=== PATIENT | male | born 1960 | race Caucasian/White ===

== ENCOUNTER 2016-09-22 09:05 | Outpatient (RCR) | payer MEDICARE, OTHER ==
--- OUTSIDE RECORDS SUMMARY | 2016-01-31 12:36 | XMS REPORT | Continuity of Care Document ---
Author Author [facility] Organization [facility] Address Unknown Phone Unavailable Care Team Providers Care Manager Channel Name Role Phone Aquilino Owen PCP [phone] Source Comments Some departments are not documenting in the electronic medical record. If you do not see the information that you expected, contact Release of Information in the Health Information Management department at [phone] for further assistance in locating additional records.[facility] Active Allergies and Adverse Reactions Not on File Current Medications Not on file Active Problems Not on file Social History Tobacco Use Types Packs/Day Years Used Date Never Assessed Plan of Care Health Maintenance Due Date Last Done Comments Hepatitis C Screening 1958 Physical (Comprehensive) 1965 Exam Pertussis Vaccine 1969 Tetanus Vaccine 10/15/1975 Colorectal Cancer 2008 Screening Influenza Vaccine 01/30/2016 Results from Last 3 Months Not on file
--- OUTSIDE RECORDS SUMMARY | 2016-06-29 09:59 | XMS REPORT | Continuity of Care Document ---
Author Author [facility] Organization [facility] Address Unknown Phone Unavailable Care Team Providers Care Aviation Survival Technician Name Role Phone Aquilino Owen PCP [phone] Source Comments Some departments are not documenting in the electronic medical record. If you do not see the information that you expected, contact Release of Information in the Health Information Management department at [phone] for further assistance in locating additional records.[facility] Active Allergies and Adverse Reactions Not on [...]
[2016-06-29 10:03] VITALS: BP 163/79
[2016-06-29] MEDS: CATHETER FLUSH 10 ML SYR IV PRN (10:03)
[2016-07-28 09:20] VITALS: BP 137/82
[2016-07-28] MEDS: CATHETER FLUSH 10 ML SYR IV PRN (09:25)
[2016-08-25 12:45] VITALS: BP 161/72
[2016-08-25] MEDS: CATHETER FLUSH 10 ML SYR IV PRN (12:55)
[~2016-09-22] VITALS: Ht 185.4 cm; Wt 119.7 kg
[~2016-09-22 09:05] MED LIST: ALLP300T PO; ALPR.5T PO; ALPR0.5T72 PO; AMLO5TAB2 PO; ATOR40TA70 PO; ATR20T PO; AZIT500T2 PO; CARI350T PO; CEFP250T2 PO; CEPH500C PO; CETI10TA17; CITA-105 PO; CITA40TA19 PO; CYCL10TA9 PO; DOXY100C2 PO; DULO60CA6 PO; ETD400T PO; ETOD400T PO; EZET1TAB44; FENT100T; FLC100T1 PO; FLC150T PO; FLUO60CR TOP; FNT100TD; FNT100TD TD; FURO40TA4 PO; GEMF600T3 PO; GLUCOVANCE; GLYB5TAB3 PO; HUMALOG; HYDR-2890 PO; HYDR-3583 PO; INSU100C4 SQ; INSU100I23 SQ; INSU100V16 SC; INSU100V6 SQ; LANTUS; LEVO500T69 PO; LISI10TA PO; LNZ600T PO; METF-380 PO; METR500T PO; MIRT30TA6 PO; MORP30CA16 PO; MORP30TA16 PO; MS CONTIN; MS15TCR PO; MTF500T PO; MTP25TSR PO; OXYC-12 PO; PGLT30T PO; POTA10TA86 PO; PRAM0.252 PO; PRAM0.257 PO; PREG150C; PREG150C PO; PREG225C PO; TRAM-21; ZLP10T PO; ZOLP12.5
[2016-09-22 09:27] VITALS: BP 135/70
[2016-09-29] MEDS ORDERED: ASPI-999 PO (14:46)
[2016-09-29] MEDS ORDERED: AMLO10TA2 PO (14:46)
[2016-09-29] MEDS ORDERED: MORP30TA60 PO (14:46)
[2016-09-29] MEDS ORDERED: ATOR40TA70 PO (14:46)
[2016-09-29] MEDS ORDERED: INSU300I SQ (14:46)
[2016-09-29] MEDS ORDERED: INSU100I23 SQ (14:46)
[2016-09-29] MEDS ORDERED: ALPR1TAB7 PO (14:46)
[2016-09-29] MEDS ORDERED: SULF1TAB35 PO (14:46)
== END 2016-09-27 | disposition home or self-care (01) ==
LOC: SDC 09:05
PROVIDERS: ATTEND Internal Medicine
DX: L08.9 Local infection of the skin and subcutaneous tissue, unspecified (principal); Z45.2 Encounter for adjustment and management of vascular access device
CPT/HCPCS: 96523

== ENCOUNTER → 2016-09-29 | Day surgery (SDC) | payer MEDICARE ==
[~2016-09-29] VITALS: Ht 185.4 cm; Wt 119.3 kg
[2016-09-29] VITALS (7 sets, daily range): BP systolic 107–147; BP diastolic 64–84
[~2016-09-29] MED LIST changes: +ALPR1TAB7 PO; +AMLO10TA2 PO; +ASPI-999 PO; +CATHETER FLUSH 10 ML SYR IV PRN; +HEParin (CATH LAB) 2,000 ML IV ONE; +INSU300I SQ; +LIDOCAINE 1% INJ 20 ML (XYLOCAINE) VIAL ONE; +MIDAZOLAM 5 MG/5 ML (VERSED) VIAL ONE; +MORP30TA60 PO; +NS IV 1000 ML 1,000 ML IV SCH; +NS IV 1000 ML 1,000 ML ONE; +PATIENT MAY USE OWN MEDS, ALL PO SCH; +SULF1TAB35 PO; +diphenhydrAMINE 50 MG/ML INJ (BENADRYL) ONE; +fentaNYL INJECTION 100 MCG/2 ML AMP ONE
[2016-09-29 11:33] LABS: MEAN PLATELET VOLUME 9.4 FL (7.4-10.4); RED BLOOD COUNT 4.04 10^6/uL (4.35-5.85); RED CELL DISTRIBUTION WIDTH 12.8 % (10.0-14.5); WHITE BLOOD COUNT 3.5 10^3/uL (4.3-11.0)
[2016-09-29 11:41] LABS: PROTHROMBIN TIME PATIENT 12.6 SEC (12.2-14.7)
[2016-09-29 11:46] LABS: BILIRUBIN,URINE NEGATIVE (NEGATIVE); KETONES,URINE NEGATIVE (NEGATIVE); LEUKOCYTE ESTERASE ,URINE NEGATIVE (NEGATIVE); NITRITE,URINE NEGATIVE (NEGATIVE); PH,URINE 5 (5-9); PROTEIN,URINE 3+ (NEGATIVE); UROBILINOGEN,URINE NORMAL (NORMAL)
[2016-09-29 11:49] LABS: ALANINE AMINOTRANSFERASE 19 U/L (0-55); ALBUMIN 4.4 G/DL (3.2-4.5); ANION GAP 8 MMOL/L (5-14); ASPARTATE AMINO TRANSFERASE 24 U/L (5-34); BILIRUBIN,TOTAL 0.4 MG/DL (0.1-1.0); BLOOD UREA NITROGEN 15 MG/DL (7-18); BUN/CREATININE RATIO 18; CALCIUM 9.5 MG/DL (8.5-10.1); CARBON DIOXIDE 30 MMOL/L (21-32); CHLORIDE 98 MMOL/L (98-107); CHOLESTEROL 125 MG/DL (< 200); CREATININE SERUM 0.84 MG/DL (0.60-1.30); DIRECT LDL 56 MG/DL (1-129); GFR ESTIMATED > 60; GLUCOSE 192 MG/DL (70-105); POTASSIUM 4.7 MMOL/L (3.6-5.0); SODIUM 136 MMOL/L (135-145); TOTAL PROTEIN 8.1 G/DL (6.4-8.2); TRIGLYCERIDES 215 MG/DL (<150); VLDL CHOLESTEROL 43 MG/DL (5-40)
--- NOTE | 2016-09-29 12:17 | Diagnostic Imaging Report ---
PA view of the chest. INDICATION: Preoperative evaluation prior to cardiac catheter. Shortness of breath. FINDINGS: There is an infusion port with the tip at the SVC level. The lungs are clear. The heart size is normal. No effusion or pneumothorax. The mediastinum and molina appear unremarkable. IMPRESSION: No acute process. Dictated by: Dictated on workstation # [id number]
[2016-09-29 12:20] LABS: HYALINE CASTS, URINE 0-2 /LPF; RENAL EPITHELIAL CELLS,URINE 0-2 /HPF
--- NOTE | 2016-09-29 16:21 | Cardiac Procedure Note-CS/ASA ---
Pre-Procedure Note Pre-Op Procedure Note H&P Reviewed The H&P was reviewed, patient examined and no changes noted. Date H&P Reviewed: September 29, 2016 Time H&P Reviewed: 16:20 Conscious Sedation Pre-Proced Time Reviewed: 16:20 ASA Class: 2 Airway Mallampati Classification: ([place] appropriate class) I. II. III, IV Lungs Heart ASA score ASA 1: a normal healthy patient ASA 2: a patient with a mild systemic disease (mid diabetes, controlled hypertension, obesity ASA 3: a patient with a severe systemic disease that limits activity (angina , COPD, prior Myocardial infarction) ASA 4: a patient with an incapacitating disease that is a constant threat to life (CHF, renal failure) ASA 5: a moribund patient not expected to survive 24 hrs. (ruptured aneurysm) ASA 6: a declared brain patient whose organs are being harvested. For emergent operations, add the letter E after the classification Grade 2 Sedation Plan: Analgesia, Amnesia, Plan communicated to team members, Discussed options with patient/fam, Discussed risks with patient/fam Note The patient is an appropriate candidate to undergo the planned procedure, sedation, and anesthesia. The patient immediately re-assessed prior to indication. NEIL GRIMALDO MD FACP FAC CCDS September 29, 2016 4:21 pm
--- NOTE | 2016-09-29 16:59 | Discharge Inst-Post CATH ---
Discharge Inst-CATH Post Cardiac Cath D/C Inst Follow Up/Plan F/u with Dr Callejas in 2 weeks CARDIAC CATH DISCHARGE INSTRUCTIONS *Hold Metformin for 48 hours post heart cath. ACTIVITY * Go Home directly and rest. * Limit activity of the leg (or wrist if it was used) for 7 days including aerobics, swimming, jogging, bicycling, etc. * Restrict stair-climbing for 7 days if possible, if not, climb up with your non -cath leg, then bring together on the same step. * Avoid lifting, pushing, pulling or excessive movement of the affected extremity for 7 days. * Customary sexual activity may be resumed after 2 days-use caution not to use a position that strains or causes pain to the affected extremity. * No driving for 24 hours. * NO SMOKING. * Avoid straining for bowel movements for 7 days. * Gentle walking on level ground is allowed. * Returning to work will depend on the type of procedure and the results. Your doctor will discuss this with you. CALL YOUR DOCTOR FOR ANY OF THE FOLLOWING: *If bleeding from the puncture site occurs- Apply gentle pressure to site with clean cloth and call your doctor or EMS. * If a knot or lump forms under the skin, increases in size, or causes pain. * If bruising appears to be worsening or moving further down your leg instead of disappearing. * Temperature above 101 F. CARE OF YOUR GROIN INCISION; * Bruising or purple discoloration of the skin near the puncture site is common. * You may shower only, no bathtub bathing for 5 days. Be careful to avoid slipping as your leg may feel stiff. * If a closure device was used on your femoral artery, please see the attached guide regarding care of the device and your leg. * REMOVE the dressing from your groin the next day after your procedure in the shower. CARE OF YOUR WRIST INCISION; * Bruising or purple discoloration of the skin near the puncture site is common. * You may shower. * DO NOT submerge wrist. * Remove dressing in 24 hours. NEIL CALLEJAS MD FACP [facility] CCDS September 29, 2016 16:59
--- NOTE | 2016-09-29 17:00 | Discharge Inst-Cardiology ---
Discharge Inst-Cardiac Discharge Medications Continued Medications: Alprazolam (Alprazolam) 1 Mg Tablet 1 MG PO TID, TAB Amlodipine Besylate (Amlodipine Besylate) 10 Mg Tablet 10 MG PO DAILY, TAB Aspirin (Aspirin) 81 Mg Tab.chew 81 MG PO DAILY, TAB Atorvastatin Calcium (Atorvastatin Calcium) 40 Mg Tablet 40 MG PO HS, TAB Carisoprodol (Soma) 350 Mg Tablet 350 MG PO HS, TAB Citalopram Hydrobromide (Celexa) 40 Mg Tablet 40 MG PO DAILY, TAB Duloxetine Hcl (Cymbalta) 60 Mg Capsule.dr 60 MG PO HS, CAP Gemfibrozil (Gemfibrozil) 600 Mg Tablet 600 MG PO BID, TAB Hydrocodone Bit/Acetaminophen (Hydrocodon-Acetaminophn 10-325) 1 Each Tablet 1 TAB PO Q6H PRN for PAIN-MODERATE, TAB Insulin Glargine,Hum.rec.anlog (Toujeo Solostar) 300 Unit/1 Ml Insuln.pen 150 UNIT SQ HS, EA Insulin Lispro (Humalog Kwikpen) 100 Unit/1 Ml Insuln.pen 30 ML SQ TIDAC, EA Metformin Hcl (Metformin 1000 Mg) 1,000 Mg Tablet 1000 MG PO BID WITH MEALS, TAB Mirtazapine (Mirtazapine 30 Mg) 30 Mg Tablet 30 MG PO HS, TAB Morphine Sulfate (Ms Contin) 30 Mg Tablet.er 30 MG PO Q8H, TAB Pregabalin (Lyrica) 225 Mg Capsule 225 MG PO BID, CAP Sulfamethoxazole/Trimethoprim (Bactrim Ds Tablet) 1 Each Tablet 1 TAB PO BID, TAB NEIL GRIMALDO MD FACP FAC CCDS September 29, 2016 17:00
--- NOTE | 2016-09-29 23:38 | CARDIAC CATHETERIZATION ---
DATE OF SERVICE: 09/29/2016 HISTORY OF PRESENT ILLNESS: The patient is a 55-year-old man who has multiple coronary artery disease risk factors and who has been experiencing new symptoms that are consistent with new onset of angina pectoralis. Cardiac catheterization was carried out the day after having obtained an informed consent. PROCEDURE: He was brought to the cardiac catheterization laboratory in a fasting state. The right groin was prepared and draped in the usual sterile fashion and using 1% lidocaine with local anesthesia, modified Seldinger technique was used to advance a 5-Egyptian sheath in the right femoral artery. A 5-Egyptian JL4 catheter into the left coronary angiography. A 5-Egyptian JR4 catheter into the right coronary angiography. A 5-Egyptian pigtail catheter was used for left heart catheterization, left ventricular angiography. The pigtail was pulled back to the aortic arch and aortic arch angiography was performed. The catheter was then removed. Angiography to the right femoral artery was carried out through the sheath. Mynx was used to achieve hemostasis. He tolerated the procedure well. HEMODYNAMICS: Left ventricular end-diastolic pressure following coronary angiography was 13 mmHg. There was no significant pressure gradient on pullback across the aortic valve. Ascending aortic pressure was 112/70 with a mean of 89 mmHg. CORONARY ANGIOGRAPHY: Left main coronary artery is free of significant disease. Left anterior descending artery has diffuse mild to moderate disease, especially in its distal portion. Left circumflex artery has mild plaques. Right coronary artery is large and dominant and has multiple stenoses of up to 50% that include the proximal, mid and distal portions. AORTIC ARCH ANGIOGRAPHY: Aortic arch angiography did not indicate any significant thoracic aortic aneurysm or dissection, to the extent visualized. The neck arteries, to the extent visualized, do not seem to have significant disease. LEFT VENTRICULAR ANGIOGRAPHY: Left ventricular angiography was carried out in right anterior oblique projection only. Global left ventricular systolic function is normal. Left ventricular ejection fraction is approximately 60%. CONCLUSION: 1. Coronary artery disease, relatively moderate. 2. Multiple 50% stenoses are seen in the right coronary artery and in the distal portion of the left anterior descending artery. 3. Normal global left ventricular systolic function with ejection fraction of 60%. 3. Left ventricular end-diastolic pressure at the top limit of normal to mildly elevated. 4. No significant mitral regurgitation. 5. No evidence of thoracic aortic aneurysm or dissection. DISCUSSION AND RECOMMENDATIONS: Based on results of the study, it appears appropriate to continue a conservative approach. Focus of cardiovascular management is on risk factor modification. Close therapy and follow up is advanced for now until risk factor modification has been completed. Job ID: [id number] DocumentID: [id number] Dictated Date: 09/29/2016 16:49:34 Assistant Cross Country Coach Date: 09/29/2016 19:33:48 Dictated By: NEIL GRIMALDO MD, MA, FACP, FACC,
== END ==
LOC: CATH 11:04
PROVIDERS: ATTEND Internal Medicine Cardiovascular Disease
DX: I25.10 Atherosclerotic heart disease of native coronary artery without angina pectoris (principal); R07.89 Other chest pain; R06.09 Other forms of dyspnea; E78.5 Hyperlipidemia, unspecified; E11.9 Type 2 diabetes mellitus without complications; I10 Essential (primary) hypertension; Z87.891 Personal history of nicotine dependence; Z82.49 Family history of ischemic heart disease and other diseases of the circulatory system; Z79.4 Long term (current) use of insulin; Z79.899 Other long term (current) drug therapy
CPT/HCPCS: 36221; 36415; 71010; 80053; 80061; 81000; 85027; 85610; 85730; 87088; 93458

== ENCOUNTER → 2016-12-04 | Outpatient (CLI) | payer MEDICARE ==
[~2016-12-04] MED LIST changes: -HEParin (CATH LAB) 2,000 ML IV ONE; +IOHEXOL 350 MG/ML 100 ML (OMNIPAQUE 350) VIAL IV ONE; -LIDOCAINE 1% INJ 20 ML (XYLOCAINE) VIAL ONE; -MIDAZOLAM 5 MG/5 ML (VERSED) VIAL ONE; +NS 100 ML (IVPB) BAG IV ONE; -NS IV 1000 ML 1,000 ML IV SCH; -NS IV 1000 ML 1,000 ML ONE; -PATIENT MAY USE OWN MEDS, ALL PO SCH; -diphenhydrAMINE 50 MG/ML INJ (BENADRYL) ONE; -fentaNYL INJECTION 100 MCG/2 ML AMP ONE
[2016-12-04 08:43] LABS: ANION GAP 10 MMOL/L (5-14); BLOOD UREA NITROGEN 14 MG/DL (7-18); BUN/CREATININE RATIO 18; CALCIUM 9.7 MG/DL (8.5-10.1); CARBON DIOXIDE 28 MMOL/L (21-32); CHLORIDE 103 MMOL/L (98-107); CREATININE SERUM 0.79 MG/DL (0.60-1.30); GFR ESTIMATED > 60; GLUCOSE 149 MG/DL (70-105); POTASSIUM 4.2 MMOL/L (3.6-5.0); SODIUM 141 MMOL/L (135-145)
--- NOTE | 2016-12-04 11:58 | Diagnostic Imaging Report ---
EXAMINATION: CT angiogram of the neck. INDICATION: Carotid artery disease. TECHNIQUE: 80 mL of Omnipaque 350 is administered intravenously. FINDINGS: There is a catheter or cardiac lead seen within the left subclavian and left brachycephalic vein incompletely visualized. The aortic arch is partially visualized with normal appearance of the origin of the great vessels except for a normal variation of a common trunk between the left common carotid artery and the brachycephalic artery resembling a bovine arch configuration. The right subclavian and the left subclavian arteries are both patent. The left common carotid artery is patent. There is ectasia of the carotid bifurcation on the left side and ectatic carotid bulb at the proximal aspect of the left internal carotid artery measuring 1 cm in caliber. There is atherosclerotic plaque also seen. There is otherwise no significant stenosis. The external carotid artery is patent. On the right side, the common carotid artery is patent with minimal plaque distally. The bulb is slightly prominent also at the proximal right ICA with mild plaque. No significant stenosis. The right external carotid artery is also patent. The left vertebral artery is dominant. Both vertebral arteries appear patent. The visualized portions of the vessels intracranially appear grossly unremarkable. The soft tissues demonstrate symmetric appearance of the parotid and submandibular glands. The thyroid appear unremarkable. There is symmetric appearance of the vocal cords and no mass identified in the mucosal pharyngeal space. The paranasal sinuses appear grossly unremarkable. There is no significantly enlarged lymph node seen. The osseous structures demonstrate degenerative changes of the cervical spine with prominent disc herniation and osteophyte formation seen at C3/4 level with suggestion of underlying spinal canal stenosis. IMPRESSION: 1. No evidence of high-grade stenosis or occlusion in the carotid arteries. 2. Prominent disc herniation at C3/4 level with suggestion of underlying spinal canal stenosis. Dictated by: Dictated on workstation # [id number]
== END ==
LOC: RAD 08:12
PROVIDERS: ATTEND Nurse Practitioner Family
DX: I25.10 Atherosclerotic heart disease of native coronary artery without angina pectoris (principal); M50.20 Other cervical disc displacement, unspecified cervical region
CPT/HCPCS: 36415; 70498; 80048

== ENCOUNTER 2017-01-21 12:59 | Outpatient (RCR) | payer MEDICARE ==
[2016-10-27 14:22] VITALS: BP 147/74
[2016-11-24 14:17] VITALS: BP 133/68
[2016-12-22 13:27] VITALS: BP 112/84
[~2017-01-21] VITALS: Ht 185.4 cm; Wt 119.3 kg
[~2017-01-21 12:59] MED LIST changes: -CATHETER FLUSH 10 ML SYR IV PRN; -IOHEXOL 350 MG/ML 100 ML (OMNIPAQUE 350) VIAL IV ONE; -NS 100 ML (IVPB) BAG IV ONE
[2017-01-21 13:10] VITALS: BP 134/90
== END 2017-01-25 | disposition home or self-care (01) ==
LOC: SDC 12:59
PROVIDERS: ATTEND Internal Medicine
DX: L08.9 Local infection of the skin and subcutaneous tissue, unspecified (principal); Z45.2 Encounter for adjustment and management of vascular access device
CPT/HCPCS: 96523

== ENCOUNTER 2017-02-22 08:12 | Outpatient (RCR) | payer MEDICARE ==
[2017-02-18 13:11] VITALS: BP 140/71
[2017-02-18 13:25] VITALS: BP 140/71
[~2017-02-22] VITALS: Ht 185.4 cm; Wt 119.3 kg
[2017-02-25] MEDS ORDERED: LIDOCAINE 4% INJ (XYLOCAINE) 5ML AMP ONE (09:14)
== END 2017-02-27 | disposition home or self-care (01) ==
LOC: SDC 08:12
PROVIDERS: ATTEND Internal Medicine
DX: Z45.2 Encounter for adjustment and management of vascular access device (principal)
CPT/HCPCS: 96523

== ENCOUNTER 2017-04-19 13:15 | Outpatient (RCR) | payer MEDICARE ==
[2017-03-22 14:05] VITALS: BP 128/78
[~2017-04-19] VITALS: Ht 185.4 cm; Wt 119.3 kg
[2017-04-19 13:30] VITALS: BP 151/76
== END 2017-04-29 11:06 | disposition home or self-care (01) ==
LOC: SDC 13:15
PROVIDERS: ATTEND Internal Medicine
DX: Z45.2 Encounter for adjustment and management of vascular access device (principal)
CPT/HCPCS: 96523

== ENCOUNTER → 2017-05-14 | Outpatient (CLI) | payer MEDICARE ==
--- NOTE | 2017-05-14 14:12 | Diagnostic Imaging Report ---
PROCEDURE: MR imaging cervical spine without contrast. TECHNIQUE: Multiplanar, multisequence MR imaging of the cervical spine was performed without contrast. INDICATION: Cervical pain and headaches. FINDINGS: Sagittal images show good alignment of the vertebral bodies. Body height is well maintained throughout. Marrow signal is normal throughout the cervical spine. The atlantoaxial joint is in good alignment. The cervical cord is uniform in appearance. No evidence of increased T2 signal demonstrated. There is mild broad-based disc bulge at C3-C4, C4-C5 and C5-C6. These all are causing mild to moderate ventral extradural defects with no significant encroachment demonstrated upon the lateral recesses and neural foramen. Mild hypertrophic bony change of the uncovertebral joint noted at C3-C4 bilaterally which is causing mild narrowing of the neural foramen. The remaining discs appear normal. Mild posterior facet hypertrophy. There is mild central canal stenosis. Minimal AP central canal dimension is approximately 8 mm at C3-C4 through C5-C6 level. The surrounding soft tissues appear normal. IMPRESSION: Multilevel degenerative disc disease with mild broad-based disc bulges from C3-C6. Mild encroachment upon the neural foramen noted bilaterally at C3-C4. Minimal AP central canal dimension of approximately 8 mm. Dictated by: Dictated on workstation # [id number]
--- NOTE | 2017-05-14 14:36 | Diagnostic Imaging Report ---
PROCEDURE: MRI lumbar spine. TECHNIQUE: Multiplanar, multisequence MRI of the lumbar spine was performed without contrast. INDICATION: Low back pain. History of previous fusion lumbar spine. FINDINGS: There is fusion of L4 through S1 with the bilateral pedicle screws and rods. Also interbody bone graft is present. FINDINGS: There is good alignment of vertebral bodies. There is mild wedge type compression fracture noted of L1 with approximately 30% loss of body height anteriorly. There is also a associated Schmorl's node along the anterior superior endplate of L3. This does show small amount of edema. The remaining lumbar vertebral bodies show normal height. The L1-L2, disc shows normal contour with no herniation. The L2-L3 disc shows desiccation with very small central radial tear. There is mild facet and ligamentous hypertrophy causing mild encroachment upon the lateral recesses and neural foramen. L3-L4 disc shows small central radial tear with mild midline ventral extradural compression. Mild posterior facet and ligamentous hypertrophy without significant encroachment upon the lateral recesses or foramen. There is no central canal stenosis. L5 through S1 show good alignment with no evidence of encroachment upon the canal. The paraspinal soft tissues appear normal. Conus medullaris and cauda equina are normal. IMPRESSION: 1. Lumbar fusion L4 through S1 with good alignment and no evidence of recurrent encroachment. 2. Mild disc disease L3-L4 and L4-L5 as described above causing mild midline ventral extradural compression. Dictated by: Dictated on workstation # [id number]
== END ==
LOC: RAD 13:10
PROVIDERS: ATTEND Anesthesiology Pain Medicine
DX: M51.36 Other intervertebral disc degeneration, lumbar region (principal); M50.31 Other cervical disc degeneration, high cervical region; M50.20 Other cervical disc displacement, unspecified cervical region; R51 Headache; Z98.890 Other specified postprocedural states
CPT/HCPCS: 72141; 72148

== ENCOUNTER 2017-07-19 12:29 | Outpatient (RCR) | payer MEDICARE ==
[2017-05-17 13:15] VITALS: BP 161/74
[2017-06-21 13:00] VITALS: BP 142/72
[~2017-07-19] VITALS: Ht 185.4 cm; Wt 119.3 kg
[2017-07-19 12:40] VITALS: BP 144/90
== END 2017-08-15 | disposition home or self-care (01) ==
LOC: SDC 12:29
PROVIDERS: ATTEND Internal Medicine
DX: Z45.2 Encounter for adjustment and management of vascular access device (principal)
CPT/HCPCS: 96523

== ENCOUNTER 2017-09-14 13:07 | Outpatient (RCR) | payer MEDICARE ==
[2017-08-16 13:55] VITALS: BP 147/73
[~2017-09-14] VITALS: Ht 185.4 cm; Wt 119.3 kg
[2017-09-14 15:22] VITALS: BP 160/73
== END 2017-11-14 | disposition home or self-care (01) ==
LOC: SDC 13:07
PROVIDERS: ATTEND Internal Medicine
DX: Z45.2 Encounter for adjustment and management of vascular access device (principal)
CPT/HCPCS: 96523

== ENCOUNTER → 2017-09-17 | Outpatient (CLI) | payer MEDICARE ==
--- NOTE | 2017-09-17 17:48 | Diagnostic Imaging Report ---
INDICATION: 30-nnra-bibp history of smoking. COMPARISON: None. TECHNIQUE: Routine low-dose noncontrast CT of the chest was performed per Department protocol. FINDINGS: Evaluation of the lung colvin demonstrates no focal consolidation, pleural effusion or pneumothorax. There is mild air trapping consistent with background of emphysematous disease. No suspicious pulmonary nodules or masses are identified. Cardiomediastinal structures show normal heart size. There is no large pericardial effusion. There is significant calcified coronary atherosclerosis, particularly involving the right coronary artery. No pathologically enlarged or morphologically abnormal adenopathy is seen within the mediastinum, molina or axilla. Main pulmonary arterial trunk is prominent at 3.9 cm in diameter. Bony structures show no acute abnormalities. No lytic or blastic bony lesions are seen. Subclavian Port-A-Cath is noted with tip terminating in the SVC. IMPRESSION: 1. No suspicious pulmonary nodules or masses. Continued screening with annual low-dose CT chest is recommended. 2. Mild air trapping consistent with background of emphysematous disease. 3. Significant calcified coronary atherosclerosis, particularly involving the RCA. 4. Prominence of main pulmonary arterial trunk. This can be seen with underlying pulmonary arterial hypertension. Lung rads category: 1-S Modifiers: As above. Dictated by: Dictated on workstation # [id number]
== END ==
LOC: RAD 13:53
PROVIDERS: ATTEND Internal Medicine
DX: I25.10 Atherosclerotic heart disease of native coronary artery without angina pectoris (principal); Z87.891 Personal history of nicotine dependence

== ENCOUNTER 2018-01-03 12:21 | Outpatient (RCR) | payer MEDICARE ==
[2017-10-20 13:20] VITALS: BP 157/72
[2017-11-17 13:25] VITALS: BP 148/73
[2017-11-30 12:57] VITALS: BP 118/62
[~2018-01-03] VITALS: Ht 185.4 cm; Wt 119.7 kg
[~2018-01-03 12:21] MED LIST changes: -AMLO10TA2 PO; +AMLO10TA7 PO; +CATHETER FLUSH 10 ML SYR IV PRN
[2018-01-03 12:40] VITALS: BP 153/68
[2018-05-16] MEDS ORDERED: CITA40TA11 (06:54)
== END 2019-01-02 | disposition home or self-care (01) ==
LOC: SDC 12:21
PROVIDERS: ATTEND Internal Medicine
DX: Z45.2 Encounter for adjustment and management of vascular access device (principal)
CPT/HCPCS: 96523

== ENCOUNTER 2018-02-03 13:07 | Outpatient (RCR) | payer MEDICARE ==
[~2018-02-03] VITALS: Ht 185.4 cm; Wt 119.7 kg
[~2018-02-03 13:07] MED LIST changes: +AMLO10TA6 PO; -AMLO10TA7 PO; -CATHETER FLUSH 10 ML SYR IV PRN
[2018-02-03 13:15] VITALS: BP 131/73
== END 2018-02-27 | disposition home or self-care (01) ==
LOC: SDC 13:07
PROVIDERS: ATTEND Internal Medicine
DX: Z45.2 Encounter for adjustment and management of vascular access device (principal)
CPT/HCPCS: 96523

== ENCOUNTER 2018-05-16 06:41 | Emergency (ER) | payer MEDICARE ==
[~2018-05-16] VITALS: Ht 185.4 cm; Wt 119.7 kg
--- OUTSIDE RECORDS SUMMARY | 2018-05-16 06:47 | XMS REPORT | Clinical Summary ---
Author Author [facility] Organization [facility] Address Unknown Phone Unavailable Care Team Providers Care Toddler Guide Name Role Phone Aquilino Owen MD PCP Max Dupree MD Unavailable Source Comments Some departments are not documenting in the electronic medical record. If you do not see the information that you expected, contact Release of Information in the Health Information Management department at [phone] for further assistance in locating additional records.[facility] Allergies Not on File Medications Not on file Active Problems Not on file Social History Date Tobacco Use Types Packs/Day Years Used Never Assessed Sex Assigned at Date Recorded Not on file Industry Job Start Date Occupation Not on file Not on file Not on file Travel End Travel History Travel Start No recent travel history available. Last Filed Vital Signs Not on file Plan of Treatment Health Maintenance Due Date Last Done Comments HEPATITIS C SCREENING 1958 PHYSICAL (COMPREHENSIVE) 1965 EXAM HIV SCREENING 1973 DTAP/TDAP VACCINES (1 - 1976 Tdap) COLORECTAL CANCER 2008 SCREENING SHINGLES RECOMBINANT 2008 VACCINE (1 of 2) INFLUENZA VACCINE 12/29/2017 Results Not on filefrom Last 3 Months
--- OUTSIDE RECORDS SUMMARY | 2018-05-16 06:48 | XMS REPORT ---
Author Author FERNY SILVERIO [facility] Address [address] [place] [address] Care Team Providers Care Habilitation Specialist Name Role Phone FERNY SILVERIO Unavailable PROBLEMS Type Condition ICD9-CM Code [id number] Code Onset Dates Condition Status SNOMED Code Problem Hypoxia R09.02 Active 894452738 Problem Port catheter in place Z95.828 Active 002441515 Problem Anxiety F41.9 Active 60531487 Problem Type 2 diabetes mellitus with diabetic peripheral angiopathy without gangrene E11.51 Active 105562246 Problem Pressure ulcer of other site, stage 3 L89.893 Active 255569714 Problem Lumbar radiculopathy, chronic M54.16 Active 631151305 Problem PAD (peripheral artery disease) I73.9 Active 622968756 Problem 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.4 Active 512300314 Problem Recurrent major depressive disorder, in full remission F33.42 Active 623082792 Problem Diabetes E11.9 Active 73205264 Problem Hypertension I10 Active 04695224 Problem Back pain M54.9 Active 152247656 Problem Insulin long-term use Z79.4 Active 164686416 Problem COPD (chronic obstructive pulmonary disease) J44.9 Active 85322731 ALLERGIES No Information ENCOUNTERS Encounter Location Date Diagnosis [facility], [place] [address] [address] Apr, [facility], [place] [id number] [place] [address] 59423- 7285 Mar, Back pain M54.9 and Anxiety F41.9 [facility], [place] [id number] [place] [address] 56274- 1065 Mar, [facility], [place] [id number] [place] [address] 27673- 4026 Mar, [facility], [place] [id number] [place] [address] 38372- 0236 Mar, [facility], [place] [address] 65478- 9334 Mar, Encounter for immunization Z23 [facility], [place] [address] 14059- 9868 31 Feb, 2018 Back pain M54.9 and Anxiety F41.9 [place] [address] 33165- 6990 Feb, Back pain M54.9 and Anxiety F41.9 [place] [address] 33727- 3788 Jan, Back pain M54.9 and Anxiety F41.9 [place] [address] 81938- 7332 Jan, [facility], [place] [address] 76364- 9390 Dec, [facility], [place] [id number] [place] [address] 54094- 1358 Dec, Back pain M54.9 and Anxiety F41.9 [place] [id number] [place] [address] 44900- 4060 Dec, Diabetes E11.9 ; Type 2 diabetes mellitus with diabetic peripheral angiopathy without gangrene E11.51 ; Lumbar radiculopathy, chronic M54.16 ; COPD (chronic obstructive pulmonary disease) J44.9 and Anxiety F41.9 [facility], [place] [id number] [place] [address] 61779- 3748 Dec, Back pain M54.9 and Anxiety F41.9 [facility], [place] [id number] [place] [address] 65105- 0349 Nov, Back pain M54.9 and Anxiety F41.9 [facility], [place] [id number] [place] [address] 12358- 3451 Oct, [facility], [place] [id number] [place] [address] 30174- 6806 2017 Back pain M54.9 and Anxiety F41.9 [facility], [place] [id number] [place] [address] 37782- 4766 September, Anxiety F41.9 and Back pain M54.9 [place] [address] 46662- 1674 September, Diabetes E11.9 ; Hypertension I10 ; COPD (chronic obstructive pulmonary disease) J44.9 and Lumbar radiculopathy, chronic M54.16 [place] [id number] [place] [address] 56798- 5604 September, Anxiety F41.9 [place] [id number] [place] [address] 36589- 1484 Aug, [place] [id number] [place] [address] 91028- 3291 Aug, [place] [id number] [place] [address] 42506- 0818 Aug, Anxiety F41.9 and Back pain M54.9 [place] [id number] [place] [address] 73851- 0426 Aug, Medicare annual wellness visit, initial Z00.00 ; COPD ( chronic obstructive pulmonary disease) J44.9 ; PAD (peripheral artery disease) I73.9 ; Insulin long-term use Z79.4 ; Hypertension I10 ; Anxiety F41.9 ; Recurrent major depressive disorder, in full remission F33.42 ; Pressure ulcer of other site, stage 3 L89.893 ; Type 2 diabetes mellitus with diabetic peripheral angiopathy without gangrene E11.51 and 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.4 [place] [id number] [place] [address] 46468- 8667 Jul, Back pain M54.9 [facility], [place] [id number] [place] [address] 45690- 6093 Jul, [facility], [place] [id number] [place] [address] 48498- 1185 Jul, Anxiety F41.9 and Back pain M54.9 [facility], [place] [id number] [place] [address] 72839- 8126 Jul, Diabetes E11.9 [facility], [place] [address] 69774- 5909 May, [facility], [place] [id number] [place] [address] 99122- 0126 May, Diabetes E11.9 ; Anxiety F41.9 ; Back pain M54.9 and COPD ( chronic obstructive pulmonary disease) J44.9 [facility], [place] [id number] [place] [address] 72032- 6109 May, Back pain M54.9 [facility], [place] [id number] [place] [address] 53633- 9838 May, [facility], [place] [id number] [place] [address] 26705- 3685 Apr, Back pain M54.9 [facility], [place] [id number] [place] [address] 46900- 8596 30 Mar, 2017 Back pain M54.9 [facility], [place] [id number] [place] [address] 99310- 5616 Mar, [facility], [place] [id number] [place] [address] 53822- 0875 16 Mar, 2017 [facility], [place] [id number] [place] [address] 75249- 5219 14 Mar, 2017 Radiculopathy of lumbar region M54.16 [facility], [place] [id number] [place] [address] 93675- 5866 13 Mar, 2017 [facility], [place] [id number] [place] [address] 52903- 1032 07 Mar, 2017 Encounter for immunization Z23 and Lumbar radiculopathy, chronic M54.16 [facility], [place] [id number] [place] [address] 81408- 0155 Mar, Back pain M54.9 and Anxiety F41.9 [facility] [id number] [place] [address] 85482 -4189 Feb, Acute bilateral low back pain with left-sided sciatica M54.42 and Acute bilateral low back pain with right-sided sciatica M54.41 [facility], [place] [address] 84375- 6050 Feb, [facility], [place] [address] 77068- 3736 Feb, Back pain M54.9 [facility], [place] [address] 55553- 0378 Jan, Back pain M54.9 and Anxiety F41.9 [facility], [place] [id number] [place] [address] 40617- 2539 05 Jan, 2017 Diabetes E11.9 [facility], [place] [address] 25487- 9463 Dec, Diabetes E11.9 ; Back pain M54.9 ; Anxiety F41.9 and Insulin long-term use Z79.4 [facility], [place] [id number] [place] [address] 34969- 1118 Dec, Anxiety F41.9 [facility], [place] [id number] [place] [address] 25961- 9491 Dec, Back pain M54.9 [facility], [place] [id number] [place] [address] 06735- 9559 Nov, Back pain M54.9 [facility], [place] [id number] [place] [address] 30572- 3450 Oct, Back pain M54.9 and Anxiety F41.9 [facility], [place] [id number] [place] [address] 86240- 5362 September, Back pain M54.9 [facility], [place] [address] 24579- 6336 September, Back pain M54.9 and Anxiety F41.9 [facility], [place] [address] 71533- 1324 Aug, Diabetes E11.9 ; Anxiety F41.9 ; Back pain M54.9 and PAD ( peripheral artery disease) I73.9 [facility], [place] [address] 82775- 3106 Aug, Anxiety F41.9 [facility], [place] [address] 38906- 5059 Aug, Back pain M54.9 [facility], [place] [address] 42057- 5500 Jul, Back pain M54.9 [facility], [place] [id number] [place] [address] 44163- 2586 Jul, Back pain M54.9 [facility], [place] [address] 82541- 8716 23 Jul, 2016 Back pain M54.9 [facility], [place] [id number] [place] [address] 14866- 6206 16 Jul, 2016 Dorsalgia M54.9 [facility], [place] [id number] [place] [address] 81224- 7059 14 Jul, 2016 [facility], [place] [address] 43056- 0925 May, Back pain M54.9 [facility], [place] [id number] [place] [address] 53545- 2896 May, Diabetes E11.9 ; Anxiety F41.9 ; Port catheter in place Z95.828 ; Encounter for immunization Z23 and Insulin long-term use Z79.4 [facility], [place] [id number] [place] [address] 28803- 4749 Apr, Back pain M54.9 [facility], [place] [id number] [place] [address] 88803- 5823 Apr, Back pain M54.9 [facility], [place] [address] 81985- 8085 Apr, [facility], [place] [address] 12434- 5813 Apr, Back pain M54.9 [facility], [place] [address] 86397- 0428 Mar, COPD (chronic obstructive pulmonary disease) J44.9 [facility], [place] [id number] [place] [address] 84370- 8644 Feb, [facility], [place] [id number] [place] [address] 42025- 6720 Jan, [facility], [place] [id number] [place] [address] 83572- 3024 Jan, [facility], [place] [id number] [place] [address] 71267- 6843 Jan, [facility], [place] [id number] [place] [address] 33325- 4313 Jan, [facility], [place] [id number] [place] [address] 08042- 2543 Dec, Diabetes E11.9 ; Hypoxia R09.02 and Back pain M54.9 [facility], [place] [address] 46513- 6145 Dec, [facility], [place] [id number] [place] [address] 45022- 2549 Nov, [facility], [place] [id number] [place] [address] 92711- 9805 Oct, Anxiety F41.9 [facility], [place] [id number] [place] [address] 34228- 8328 Oct, Back pain M54.9 [facility], [place] [id number] [place] [address] 51394- 1958 September, Back pain M54.9 [facility], [place] [id number] [place] [address] 78606- 0118 September, Diabetes E11.9 [facility], [place] [address] 69054- 7349 September, [facility], [place] [address] 52447- 0063 September, Diabetes E11.9 ; Insulin long-term use Z79.4 and Back pain M54.9 [facility], [place] [id number] [place] [address] 74828- 8338 Aug, Back pain M54.9 [facility], [place] [id number] [place] [address] 49457- 6212 Aug, Back pain M54.9 ; Anxiety F41.9 and Arthropathy, unspecified M12.9 [facility], [place] [id number] [place] [address] 12495- 9598 Jul, Back pain M54.9 [facility], [place] [id number] [place] [address] 40315- 7290 Jul, Anxiety F41.9 [facility], [place] [id number] [place] [address] 01177- 5816 Jul, Back pain M54.9 [facility], [place] [id number] [place] [address] 68706- 8939 Jul, [facility], [place] [id number] [place] [address] 50828- 8159 Jul, [facility], [place] [address] 30057- 2433 May, Back pain M54.9 ; Diabetes E11.9 ; Insulin long-term use Z79.4 ; COPD (chronic obstructive pulmonary disease) J44.9 and Hypertension I10 [facility], [place] [id number] [place] [address] 19781- 4846 May, Chronic pain G89.29 [place] [address] 95763- 7268 Apr, [facility], [place] [address] 82432- 2792 Apr, [place] [address] 77153- 9708 Mar, [facility], [place] [address] 71712- 5015 Mar, Encounter for immunization Z23 and Diabetes E11.9 [facility], [place] [address] 56172- 6365 Feb, [facility], [place] [id number] [place] [address] 29347- 2985 Feb, [facility], [place] [address] 57150- 2114 Jan, [facility], [place] [id number] [place] [address] 70212- 7574 Jan, [facility], [place] [id number] [place] [address] 39808- 9759 Dec, [facility], [place] [id number] [place] [address] 90619- 7823 Dec, [facility], [place] [address] 70181- 7612 Dec, Unspecified arthropathy, site unspecified 716.90 and Diabetes mellitus type 2, uncontrolled 250.02 [facility], [place] [address] 38067- 0240 Dec, [facility] [place] [facility] [address] [id number] [place] [address]- 8566 Nov, [facility] [place] [facility] [address] [id number] [place] [address]- 0326 Oct, [facility] [place] [facility] [address] [id number] [place] [address]- 7737 September, [facility] [place] [facility] [address] [id number] [place] [address]- 3236 September, [facility] [place] [facility] [address] [id number] [place] [address]- 3230 September, [facility] [place] [facility] [address] [id number] [place] [address]- 8946 September, [facility] [place] [facility] [address] [id number] [place] [address]- 3444 Aug, [facility] [place] [facility] [address] [id number] [place] [address]- 3885 Aug, [facility] [place] [facility] [address] [id number] [place] [address]- 5848 Jul, [facility] [place] [facility] [address] [id number] [place] [address]- 2544 18 Jul, 2014 [facility] [place] [facility] [address] [id number] [place] [address]- 9822 16 Jul, 2014 [facility] [place] [facility] [address] [id number] [place] [address]- 4875 16 Jul, 2014 [facility] [place] [facility] [address] [id number] [place] [address]- 5999 Jul, [facility] [place] [facility] [address] [id number] [place] [address]- 4800 16 Jul, 2014 [facility] [place] [facility] [address] [id number] [place] [address]- 2883 16 Jul, 2014 [facility] [place] [facility] [address] [id number] [address]- 8521 16 Jul, 2014 [facility] [place] [facility] [address] [id number] [place] [address]- 5542 16 Jul, 2014 [facility] [place] [facility] [address] [id number] [place] [address]- 6302 Jul, 2014 [facility] [place] [facility] [address] [facility] [id number] [place] [address]- 0149 13 Jul, 2014 [facility] [place] [facility] [address] [id number] [place] [address]- 0107 09 Jul, 2014 [facility] [place] [facility] [address] [id number] [place] [address]- 8631 09 Jul, 2014 [facility] [place] [facility] [address] [facility] [id number] [place] [address]- 6852 17 Jul, 2014 [facility] [place] [facility] [address] [facility] [id number] [place] [address]- 1023 17 Jul, 2014 [facility] [place] [facility] [address] [facility] [id number] [place] [address]- 8475 16 Jul, 2014 [facility] [place] [facility] [address] [facility] [id number] [place] [address]- 8244 16 Jul, 2014 [facility] [place] [facility] [address] [facility] [id number] [place] [address]- 5836 16 Jul, 2014 [facility] [place] [facility] [address] [facility] [id number] [place] [address]- 6411 16 Jul, 2014 [facility] [place] [facility] [address] [facility] [id number] [place] [address]- 6993 16 Jul, 2014 [facility] [place] [facility] [address] [facility] [id number] [place] [address]- 1810 16 Jul, 2014 [facility] [place] [facility] [address] [facility] [id number] [place] [address]- 3197 16 Jul, 2014 [facility] [place] [facility] [address] [facility] [id number] [place] [address]- 8847 Jul, 2014 [facility] [place] [facility] [address] [id number] [place] [address]- 0418 Jul, [facility] [place] [facility] [address] [id number] [place] [address]- 1178 Jul, 2014 [facility] [place] [facility] [address] [id number] [place] [address]- 0002 Jul, 2014 [facility] [place] [facility] [address] [id number] [place] [address]- 5289 Jul, 2014 [facility] [place] [facility] [address] [id number] [place] [address]- 6291 Jul, [facility] [place] [facility] [address] [id number] [place] [address]- 0837 Jul, [facility] [place] [facility] [address] [id number] [place] [address]- 6256 May, [facility] [place] [facility] [address] [id number] [place] [address]- 8546 May, [facility] [place] [facility] [address] [id number] [place] [address]- 4129 May, [facility] [place] [facility] [address] [id number] [place] [address]- 1917 May, [facility] [place] [facility] [address] [id number] [place] [address]- 1260 May, [facility] [place] [facility] [address] [id number] [place] [address]- 1498 May, [facility] [place] [facility] [address] [id number] [place] [address] May, [facility] [place] [facility] [address] [id number] [place] [address] May, [facility] [place] [facility] [address] [id number] [place] [address] May, [facility] [place] [facility] [address] [id number] [place] [address] May, [facility] [address] [id number] [place] [address] Apr, [facility] [place] [facility] [address] [id number] [place] [address] Apr, [facility] [address] [id number] [place] [address] Apr, [facility] [place] [facility] [address] [id number] [place] [address] Apr, [facility] [place] [facility] [address] [id number] [place] [address] Apr, [facility] [place] [facility] [address] [id number] [place] [address] Apr, [facility] [place] [facility] [address] [id number] [place] [address] Mar, [facility] [address] [id number] [place] [address] Mar, [facility] [place] [facility] [address] [id number] [place] [address] Mar, [facility] [address] [id number] [place] [address] Mar, [facility] [address] [id number] [place] [address] Mar, [facility] [place] [facility] [address] [id number] [place] [address] Mar, [facility] [place] [address] [id number] [place] [address] Mar, [facility] [place] [address] [id number] [place] [address] 17 Mar, 2014 [facility] [place] [facility] [address] [id number] [place] [address] Mar, [facility] [address] [id number] [place] [address] Mar, [facility] [place] [address] [id number] [place] [address] Mar, [facility] [place] [facility] [address] [id number] [place] [address] Feb, [facility] [place] [address] [id number] [place] [address] Feb, [facility] [address] [id number] [place] [address] Feb, [facility] [place] [facility] [address] [id number] [place] [address] Feb, [facility] [address] [id number] [place] [address] Feb, [facility] [address] [id number] [place] [address] Feb, [facility] [place] [address] [id number] [place] [address] Feb, [facility] [address] [id number] [address] Feb, [facility] [address] [id number] [address] Feb, [facility] [address] [id number], [place] [address] Feb, [facility] [address] [id number] [place] [address] Jan, [facility] [address] [id number] [place] [address] 22 Jan, 2014 [facility] [address] [id number], [place] [address] 16 Jan, 2014 [facility] [address] [id number], [place] [address] 16 Jan, 2014 [facility] [address] [id number] [place] [address] Jan, [facility] [place] [facility] [address] [id number] [place] [address] Jan, [facility] [address] [id number] [place] [address] Jan, [facility] [address] [id number] [place] [address] Dec, [facility] [address] [id number] [place] [address] Dec, [facility] [address] [id number] [place] [address] Dec, [facility] [address] [id number] [place] [address] Dec, [facility] [address] [id number] [place] [address] Dec, [facility] [address] [id number] [place] [address] Dec, [facility] [address] [id number] [place] [address] Dec, [facility] [address] [id number] [place] [address] Dec, [facility] [address] [id number] [place] [address] Oct, [facility] [address] [id number] [place] [address] Oct, [facility] [place] [facility] [address] [id number] [place] [address] September, [facility] [facility] [address] [id number] [place] [address] September, [facility] [place] [facility] [address] [id number] [place] [address] September, [facility] [place] [facility] [address] [id number] [place] [address] September, [facility] [place] [facility] [address] [id number] [place] [address] 268[address] September, [facility] [place] [facility] [address] [id number] [place] [address] 1993 September, [facility] [place] [facility] [address] [id number] [place] [address] September, [facility] [place] [facility] [address] [id number] [place] [address] 87[address] Aug, [facility] [place] [facility] [address] [facility] [id number] [place] [address] Aug, [facility] [place] [facility] [address] [id number] [place] [address] 99[address] Jul, [facility] [place] [facility] [address] [id number] [place] [address] Jul, [facility] [facility] [address] [facility] [id number] [place] [address] Jul, [facility] [facility] [address] [facility] [id number] [place] [address] 9599 Jul, [facility] [place] [facility] [address] [id number], [place] [address] Jul, [facility] [place] [facility] [address] [id number] [place] [address] 3574 Jul, [facility] [place] [facility] [address] [id number] [place] [address] 8416 Jul, [facility] [place] [facility] [address] [id number] [place] [address] Jul, [facility] [place] [facility] [address] [id number], [place] [address] 15 May, 2013 [facility] [place] [facility] [address] [id number] [place] [address]- [address]782 15 May, 2013 [facility] [place] [facility] [address] [id number] [place] [address] 9938 14 May, 2013 [facility] [place] [facility] [address] [facility] [id number] [place] [address] 8630 14 May, 2013 [facility] [place] [facility] [address] [id number] [place] [address] 1991 18 Apr, 2013 [facility] [place] [facility] [address] [id number] [place] [address] 2831 Mar, [facility] [place] [facility] [address] [id number] [place] [address] 3205 Mar, [facility] [place] [facility] [address] [facility] [id number] [place] [address]- 0731 Mar, [facility] [place] [facility] [address] [id number] [place] [address]- 8975 Mar, [facility] [facility] [address] [facility] [id number] [place] [address] 8419 Mar, [facility] [place] [facility] [address] [facility] [id number] [place] [address] 2896 18 Mar, 2013 [facility] [place] [facility] [address] [id number], [place] [address] 39[address] 18 Mar, 2013 [facility] [place] [facility] [address] [id number], [place] [address] 9[address] 18 Mar, 2013 [facility] [place] [facility] [address] [id number] [place] [address]- 4607 Mar, [facility] [address] [facility] [id number] [place] [address] 0996 Mar, [facility] [facility] [address] [facility] [id number], [place] [address] 6069 04 Mar, 2013 [facility] [address] [id number] [place] [address]241 Mar, [facility] [facility] [address] [id number] [place] [address] 1583 Feb, [facility] [place] [facility] [address] [id number] [place] [address] 7216 Feb, [facility] [place] [facility] [address] [id number] [place] [address] 6938 Feb, [facility] [place] [facility] [address] [id number] [place] [address] 7544 Feb, [facility] [place] [facility] [address] [id number] [place] [address] 0859 Feb, [facility] [facility] [address] [id number] [place] [address] 6[address] Jan, [facility] [address] [id number] [place] [address] 0849 Dec, [facility] [address] [id number] [place] [address] 8173 Dec, [facility] [address] [id number] [place] [address] 6[address] Dec, [facility] [facility] [address] [id number] [place] [address]- 7415 Nov, [facility] [address] [id number] [place] [address] 7514 Nov, [facility] [address] [id number] [place] [address]- 6064 Nov, [facility] [address] [id number] [place] [address] 2995 Oct, [facility] [address] [id number] [place] [address] 2546 Oct, [facility] [address] [id number] [place] [address] 7054 Oct, [facility] [address] [id number] [place] [address] 7711 September, [facility] [address] [id number] [place] [address] 2941 September, [facility] [address] [id number] [place] [address]- 6992 September, [facility] [address] [id number] [place] [address]- 2078 September, [facility] [address] [id number] [place] [address]- 7686 September, [facility] [address] [id number] [place] [address]- 2912 Aug, [facility] [address] [id number] [place] [address]- 3898 Aug, [facility] [address] [id number] [place] [address] 1704 Aug, [facility] [address] [id number] [place] [address] 9041 Jul, [facility] [address] [id number] [place] [address]- 0699 Jul, [facility] [address] [id number] [place] [address] 1841 Jul, [facility] [address] [id number], [place] [address] 2088 Jul, [facility] [address] [id number] [place] [address]- 6699 Jul, [facility] [address] [id number] [place] [address]- 6907 Jul, [facility] [address] [id number] [place] [address]- 2123 Jul, [facility] [address] [id number] [place] [address]- 7891 14 May, 2012 [facility] [address] [id number] [place] [address]- 3954 08 May, 2012 [facility] [address] [id number] [place] [address]- 3312 May, [facility] [address] [id number] [place] [address]- 3984 Apr, [facility] [address] [id number] [place] [address]- 5239 Apr, [facility] [address] [id number] [place] [address]- 7719 Apr, [facility] [address] [id number] [place] [address]- 3970 Apr, [facility] [address] [id number] [place] [address]- 6250 Apr, [facility] [address] [id number] [place] [address]- 1615 Mar, [facility] [address] [id number] [place] [address]- 1194 29 Mar, 2012 [facility] [address] [facility] [id number] [place] [address]- 1279 Mar, [facility] [address] [id number] [place] [address]- 1095 Mar, [facility] [address] [id number] [place] [address]- 4810 Feb, [facility] [address] [id number] [place] [address]- 5204 Feb, [facility] [address] [id number] [place] [address]- 4761 Feb, [facility] [address] [id number] [place] [address]- 8343 Feb, [facility] [address] [id number] [place] [address]- 8491 Feb, [facility] [address] [id number] [place] [address]- 5736 Jan, [facility] [address] [id number] [place] [address] 2546 Dec, [facility] [address] [id number] [place] [address]- 2546 Dec, [facility] [address] [id number] [place] [address]- 5535 Dec, [facility] [address] [id number] [place] [address]- 4859 Nov, [facility] [address] [id number] [place] [address]- 0306 Nov, [facility] [address] [id number] [place] [address]- 8831 Nov, [facility] [address] [id number] [place] [address]- 4250 Oct, [facility] [address] [id number] [place] [address]- 6476 Oct, [facility] [address] [id number] [place] [address]- 9761 Oct, [facility] [address] [id number] [place] [address]- 6539 Oct, [facility] [address] [id number] [place] [address]- 8755 September, [facility] [address] [id number] [place] [address]- 0206 September, [facility] [address] [id number] [place] [address]- 7434 Aug, [facility] [address] [id number] [place] [address]- 6112 Aug, [facility] [address] [id number] [place] [address]- 0310 Aug, [facility] [address] [id number] [place] [address]- 2095 Aug, [facility] [address] [id number] [place] [address]- 8021 Aug, [facility] [address] [id number] [place] [address]- 8635 Aug, [facility] [address] [id number] [place] [address]- 2116 Aug, [facility] [address] [id number] [place] [address]- 8980 Jul, [facility] [address] [id number] [place] [address]- 1115 Jul, [facility] [address] [id number] [place] [address]- 8076 Jul, [facility] [address] [id number] [place] [address]- 0687 May, [facility] [address] [id number] [place] [address]- 8494 May, [facility] [address] [id number] [place] [address]- 7134 May, [facility] [address] [id number] [place] [address]- 8646 Apr, [facility] [address] [id number] [place] [address]- 4074 Apr, [facility] [address] [id number] [place] [address]- 1705 Mar, [facility] [address] [id number] [place] [address]- 3064 Mar, [facility] [address] [id number], [place] [address]- 8226 18 Mar, 2011 [facility] [place] [address] [id number], [place] [address]- [address]33 Mar, [facility] [place] [address] [id number], [place] [address]- 2470 Mar, [facility] [place] [address] [id number], [place] [address]- 3092 Mar, [facility] [place] [address] [id number], [place] [address]- 2270 Feb, [facility] [place] [address] [id number], [place] [address]- 2743 Feb, [facility] [place] [address] [id number], [place] [address]- 7788 Feb, IMMUNIZATIONS No Known Immunizations SOCIAL HISTORY Never Assessed REASON FOR VISIT soma refill PLAN OF CARE VITAL SIGNS MEDICATIONS Medication Instructions Dosage Frequency Start Date End Date Duration Status Soma 350 mg Orally Once a day 1 tablet as needed 24h 28 days Active RESULTS No Results PROCEDURES No Known procedures INSTRUCTIONS MEDICATIONS ADMINISTERED No Known Medications MEDICAL (GENERAL) HISTORY Type Description Date Medical History diabetic type II Medical History hypertension Medical History hyperlipidemia Medical History chronic back pain Medical History neuropathy Medical History herniated disc Medical History spinal stenosis Surgical History back surgery Surgical History right shoulder x 2 Surgical History right knee x 2 Surgical History LPJ of right kidney Surgical History 2nd toe removed on right foot Surgical History 3rd and 4th metatarsal heads removed on right foot Surgical History bone spurs removed x 4 bilateral feet Surgical History Procedure- Burning of nerve in his back Hospitalization History surgeries Hospitalization History foot infections x 3 2015
--- OUTSIDE RECORDS SUMMARY | 2018-05-16 06:48 | XMS REPORT ---
Author Author FERNY SILVERIO [facility] Address [address] [place] [address] Care Team Providers Care Monument Letterer Name Role Phone FERNY SILVERIO Unavailable PROBLEMS Type Condition ICD9-CM Code OMV48-JD Code Onset Dates Condition Status SNOMED Code Problem Hypoxia R09.02 Active 691409991 Problem Port catheter in place Z95.828 Active 687430900 Problem Anxiety F41.9 Active 67248153 Problem Type 2 diabetes mellitus with diabetic peripheral angiopathy without gangrene E11.51 Active 258414332 Problem Pressure ulcer of other site, stage 3 L89.893 Active 834995131 Problem Lumbar radiculopathy, chronic M54.16 Active 377082663 Problem PAD (peripheral artery disease) I73.9 Active 166607266 Problem 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 819376843 Problem Recurrent major depressive disorder, in full remission F33.42 Active 190257688 Problem Diabetes E11.9 Active 32588140 Problem Hypertension I10 Active 03251024 Problem Back pain M54.9 Active 711123440 Problem Insulin long-term use Z79.4 Active 340959741 Problem COPD (chronic obstructive pulmonary disease) J44.9 Active 34081728 ALLERGIES No Information ENCOUNTERS Encounter Location Date Diagnosis [facility] [id number] [place] [address] 15631- 5262 Mar, Back pain M54.9 and Anxiety F41.9 [facility] [id number] [place] [address] 24507- 3570 Mar, [facility] [id number] [place] [address] 31924- 3027 Mar, [facility] [id number] [place] [address] 82487- 2647 Mar, [facility] [id number] [place] [address] 52120- 1557 Mar, Encounter for immunization Z23 [facility] [address] 95998- 9265 31 Feb, 2018 Back pain M54.9 and Anxiety F41.9 [place] [address] 89949- 5750 Feb, Back pain M54.9 and Anxiety F41.9 [place] [address] 51743- 4649 Jan, Back pain M54.9 and Anxiety F41.9 [place] [address] 29493- 0240 Jan, [place] [address] 66896- 7439 Dec, [place] [address] 95654- 5583 Dec, Back pain M54.9 and Anxiety F41.9 [place] [address] 91400- 6729 Dec, Diabetes E11.9 ; Type 2 diabetes mellitus with diabetic peripheral angiopathy without gangrene E11.51 ; Lumbar radiculopathy, chronic M54.16 ; COPD (chronic obstructive pulmonary disease) J44.9 and Anxiety F41.9 [place] [id number] [place] [address] 74408- 4691 Dec, Back pain M54.9 and Anxiety F41.9 [place] [address] 48074- 9857 Nov, Back pain M54.9 and Anxiety F41.9 [facility] [id number] [place] [address] 98716- 9781 Oct, [facility] [address] 50967- 1741 Oct, Back pain M54.9 and Anxiety F41.9 [place] [id number] [place] [address] 67318- 7942 September, Anxiety F41.9 and Back pain M54.9 [facility] [id number] [place] [address] 10265- 1645 September, Diabetes E11.9 ; Hypertension I10 ; COPD (chronic obstructive pulmonary disease) J44.9 and Lumbar radiculopathy, chronic M54.16 [place] [id number] [place] [address] 14253- 7169 September, Anxiety F41.9 [place] [address] 10817- 8306 Aug, [place] [address] 09662- 7022 Aug, [place] [id number] [place] [address] 39014- 0411 Aug, Anxiety F41.9 and Back pain M54.9 [place] [id number] [place] [address] 55322- 3713 Aug, Medicare annual wellness visit, initial Z00.00 ; COPD ( chronic obstructive pulmonary disease) J44.9 ; PAD (peripheral artery disease) I73.9 ; Insulin long-term use Z79.4 ; Hypertension I10 ; Anxiety F41.9 ; Recurrent major depressive disorder, in full remission F33.42 ; Pressure ulcer of other site, stage 3 L89.893 ; Type 2 diabetes mellitus with diabetic peripheral angiopathy without gangrene E11.51 and shelter current use of insulin Z79.4 [place] [id number] [place] [address] 50405- 3947 Jul, Back pain M54.9 [place] [id number] [place] [address] 12643- 8979 Jul, [place] [address] [place] [address] 56796- 0818 Jul, Anxiety F41.9 and Back pain M54.9 [facility] [address] 18452- 9280 Jul, Diabetes E11.9 [facility] [address] 57421- 8570 May, [facility] [address] 20940- 5284 May, Diabetes E11.9 ; Anxiety F41.9 ; Back pain M54.9 and COPD ( chronic obstructive pulmonary disease) J44.9 [facility] [address] 43825- 3455 May, Back pain M54.9 [facility] [address] 45580- 9804 May, [facility] [address] 36702- 1443 Apr, Back pain M54.9 [facility] [address] 72085- 7448 Mar, Back pain M54.9 [facility] [address] 33420- 2056 Mar, [facility] [address] 84982- 4102 16 Mar, 2017 [facility] [address] 46910- 2831 14 Mar, 2017 Radiculopathy of lumbar region M54.16 [facility] [address] 56974- 4004 13 Mar, 2017 [facility] [id number] [place] [address] 81516- 9906 07 Mar, 2017 Encounter for immunization Z23 and Lumbar radiculopathy, chronic M54.16 [facility] [id number] [place] [address] 09173- 3727 Mar, Back pain M54.9 and Anxiety F41.9 [facility] [id number] [place] [address] 21145 -2295 Feb, Acute bilateral low back pain with left-sided sciatica M54.42 and Acute bilateral low back pain with right-sided sciatica M54.41 [facility] [id number] [place] [address] 97977- 2930 Feb, [facility] [address] 91974- 6313 Feb, Back pain M54.9 [facility] [id number] [place] [address] 22711- 6081 05 Jan, 2017 Back pain M54.9 and Anxiety F41.9 [facility] [address] 19906- 4989 05 Jan, 2017 Diabetes E11.9 [facility] [id number] [place] [address] 79072- 2363 Dec, Diabetes E11.9 ; Back pain M54.9 ; Anxiety F41.9 and Insulin long-term use Z79.4 [facility] [id number] [place] [address] 26660- 7076 Dec, Anxiety F41.9 [facility] [id number] [place] [address] 62063- 5401 Dec, Back pain M54.9 [facility] [id number] [place] [address] 16480- 3946 Nov, Back pain M54.9 [facility] [id number] [place] [address] 25285- 2781 Oct, Back pain M54.9 and Anxiety F41.9 [facility] [id number] [place] [address] 38697- 0840 September, Back pain M54.9 [facility] [id number] [place] [address] 69121- 6180 September, Back pain M54.9 and Anxiety F41.9 [facility] [id number] [place] [address] 18202- 6402 Aug, Diabetes E11.9 ; Anxiety F41.9 ; Back pain M54.9 and PAD ( peripheral artery disease) I73.9 [facility] [address] 66002- 4571 Aug, Anxiety F41.9 [facility] [address] 06962- 6085 Aug, Back pain M54.9 [facility] [address] 49951- 9764 Jul, Back pain M54.9 [facility] [address] 77781- 1135 Jul, Back pain M54.9 [facility] [address] 14455- 3153 23 Jul, 2016 Back pain M54.9 [facility] [id number] [place] [address] 13465- 8768 16 Jul, 2016 Dorsalgia M54.9 [facility] [address] 83793- 2283 Jul, [facility] [id number] [place] [address] 84028- 8914 May, Back pain M54.9 [facility] [address] 89589- 9593 May, Diabetes E11.9 ; Anxiety F41.9 ; Port catheter in place Z95.828 ; Encounter for immunization Z23 and Insulin long-term use Z79.4 [facility] [address] 75363- 3603 Apr, Back pain M54.9 [facility] [address] [facility] [place] [id number] [place] [address] 50629- 1563 Apr, Back pain M54.9 [facility] [address] [facility] [place] [id number] [place] [address] 34396- 8086 Apr, [facility] [id number] [place] [address] 74923- 6265 Apr, Back pain M54.9 [facility] [address] [facility] [place] [id number] [place] [address] 30035- 2615 Mar, COPD (chronic obstructive pulmonary disease) J44.9 [facility] [id number] [place] [address] 07330- 2870 Feb, [facility] [id number] [place] [address] 46162- 0072 Jan, [facility] [id number] [place] [address] 42056- 3686 Jan, [facility] [id number] [place] [address] 70708- 2645 Jan, [facility] [id number] [place] [address] 15638- 5740 Jan, [facility] [id number] [place] [address] 76552- 9311 Dec, Diabetes E11.9 ; Hypoxia R09.02 and Back pain M54.9 [facility] [address] [facility] [place] [place] [id number] [place] [address] 31781 2543 Dec, [facility] [id number] [place] [address] 99290- 3926 Nov, [facility] [id number] [place] [address] 42953- 5308 Oct, Anxiety F41.9 [facility] [id number] [place] [address] 29688- 7008 Oct, Back pain M54.9 [facility] [id number] [place] [address] 40420- 4828 September, Back pain M54.9 [facility] [id number] [place] [address] 02627- 7965 September, Diabetes E11.9 [facility] [id number] [place] [address] 87602- 7210 September, [facility] [id number] [place] [address] 58145- 3402 September, Diabetes E11.9 ; Insulin long-term use Z79.4 and Back pain M54.9 [facility] [id number] [place] [address] 37090- 3533 Aug, Back pain M54.9 [facility] [id number] [place] [address] 41234- 8288 Aug, Back pain M54.9 ; Anxiety F41.9 and Arthropathy, unspecified M12.9 [facility] [id number] [place] [address] 63371- 8654 Jul, Back pain M54.9 [facility] [id number] [place] [address] 51074- 0074 Jul, Anxiety F41.9 [facility] [id number] [place] [address] 06245- 2649 Jul, Back pain M54.9 [facility] [id number] [place] [address] 37726- 9883 Jul, [facility] [id number] [place] [address] 24671- 8609 Jul, [facility] [id number] [place] [address] 86174- 2895 May, Back pain M54.9 ; Diabetes E11.9 ; Insulin long-term use Z79.4 ; COPD (chronic obstructive pulmonary disease) J44.9 and Hypertension I10 [facility] [id number] [place] [address] 77726- 5382 May, Chronic pain G89.29 [facility] [address] 99908- 4402 Apr, [facility] [address] 13169- 9917 Apr, [facility] [address] 67260- 0944 Mar, [facility] [address] 64270- 0976 Mar, Encounter for immunization Z23 and Diabetes E11.9 [facility] [address] 78456- 3528 Feb, [facility] [address] 36920- 0474 Feb, [facility] [id number] [place] [address] 84716- 3631 Jan, [facility] [address] 06664- 5971 Jan, [facility] [id number] [place] [address] 26544- 9869 Dec, [facility] [address] 52419- 2390 Dec, [facility] [id number] [place] [address] 38606- 7293 Dec, Unspecified arthropathy, site unspecified 716.90 and Diabetes mellitus type 2, uncontrolled 250.02 [facility] [id number] [place] [address] 76334- 7115 Dec, [facility] [address] 50283- 4291 Nov, [facility] [place] [facility] [address] [id number] [place] [address]- 8164 Oct, [facility] [place] [facility] [address] [id number] [place] [address]- 1211 September, [facility] [place] [facility] [address] [id number] [place] [address]- 2900 September, [facility] [place] [facility] [address] [id number] [place] [address]- 0827 September, [facility] [place] [facility] [address] [id number] [place] [address]- 1626 September, [facility] [place] [facility] [address] [id number] [place] [address]- 7124 Aug, [facility] [place] [facility] [address] [id number] [place] [address]- 4136 Aug, [facility] [place] [facility] [address] [id number] [place] [address]- 8329 Jul, [facility] [place] [facility] [address] [id number] [place] [address]- 2922 18 Jul, 2014 [facility] [place] [facility] [address] [id number] [place] [address]- 8163 16 Jul, 2014 [facility] [place] [facility] [address] [id number] [place] [address]- 5704 16 Jul, 2014 [facility] [place] [facility] [address] [id number] [address]- 7252 16 Jul, 2014 [facility] [place] [facility] [address] [id number] [place] [address]- 7547 16 Jul, 2014 [facility] [place] [facility] [address] [id number] [place] [address]- 3992 16 Jul, 2014 [facility] [place] [facility] [address] [id number] [place] [address]- 8649 16 Jul, 2014 [facility] [place] [facility] [address] [id number] [place] [address]- 9255 16 Jul, 2014 [facility] [place] [facility] [address] [id number] [place] [address]- 7226 Jul, 2014 [facility] [place] [facility] [address] [id number] [place] [address]- 6202 13 Jul, 2014 [facility] [place] [facility] [address] [id number] [place] [address]- 4269 09 Jul, 2014 [facility] [place] [facility] [address] [id number] [place] [address]- 8046 09 Jul, 2014 [facility] [place] [facility] [address] [id number] [place] [address]- 9864 17 Jul, 2014 [facility] [place] [facility] [address] [id number] [place] [address]- 2974 17 Jul, 2014 [facility] [place] [facility] [address] [facility] [place] [facility] [id number] [place] [address]- 1286 16 Jul, 2014 [facility] [place] [facility] [address] [facility] [place] [id number] [place] [address]- 5606 16 Jul, 2014 [facility] [place] [facility] [address] [facility] [place] [id number] [place] [address]- 2672 16 Jul, 2014 [facility] [place] [facility] [address] [facility] [place] [id number] [place] [address]- 6768 16 Jul, 2014 [facility] [place] [facility] [address] [facility] [place] [id number] [place] [address]- 1029 16 Jul, 2014 [facility] [place] [facility] [address] [facility] [place] [id number] [place] [address]- 7976 16 Jul, 2014 [facility] [place] [facility] [address] [id number] [place] [address]- 1113 16 Jul, 2014 [facility] [place] [facility] [address] [facility] [place] [id number] [place] [address]- 3616 16 Jul, 2014 [facility] [place] [facility] [address] [facility] [place] [facility] [id number] [place] [address]- 7203 Jul, [facility] [place] [facility] [address] [id number] [place] [address]- 4012 Jul, [facility] [place] [facility] [address] [id number] [place] [address]- 0932 Jul, [facility] [place] [facility] [address] [id number] [place] [address]- 9273 Jul, [facility] [place] [facility] [address] [id number] [place] [address]- 1900 Jul, 2014 [facility] [place] [facility] [address] [id number] [place] [address]- 8275 Jul, [facility] [place] [facility] [address] [id number] [place] [address]- 1923 May, [facility] [place] [facility] [address] [id number] [place] [address]- 4896 May, [facility] [place] [facility] [address] [id number] [place] [address]- 5492 May, [facility] [place] [facility] [address] [id number] [place] [address]- 4229 May, [facility] [place] [facility] [address] [id number] [place] [address]- 9699 May, [facility] [place] [facility] [address] [id number] [place] [address]- 0844 May, [facility] [place] [facility] [address] [id number] [place] [address]- 4192 May, [facility] [place] [facility] [address] [id number] [place] [address]- 7218 May, [facility] [place] [facility] [address] [id number] [place] [address]- 3241 May, [facility] [place] [facility] [address] [id number] [place] [address]- 4937 May, [facility] [place] [facility] [address] [id number] [place] [address]- 8292 Apr, [facility] [address] [id number] [place] [address]- 3008 Apr, [facility] [place] [facility] [address] [id number] [place] [address]- 1704 Apr, [facility] [place] [facility] [address] [id number] [place] [address]- 7557 Apr, [facility] [place] [facility] [address] [id number] [place] [address]- 0475 Apr, [facility] [place] [facility] [address] [id number] [place] [address]- 1978 Apr, [facility] [place] [facility] [address] [id number] [place] [address]- 5224 Mar, [facility] [place] [facility] [address] [id number] [place] [address]- 0722 Mar, [facility] [place] [facility] [address] [id number] [place] [address]- 6398 Mar, [facility] [place] [facility] [address] [id number] [place] [address]- 2700 Mar, [facility] [place] [facility] [address] [id number] [place] [address]- 5004 Mar, [facility] [place] [facility] [address] [id number] [place] [address]- 2410 Mar, [facility] [place] [facility] [address] [id number] [place] [address]- 0444 Mar, [facility] [place] [facility] [address] [id number] [place] [address]- 5354 Mar, [facility] [place] [facility] [address] [id number] [place] [address]- 7230 Mar, [facility] [place] [facility] [address] [id number] [place] [address]- 4509 Mar, [facility] [place] [facility] [address] [id number] [place] [address]- 0077 Mar, [facility] [place] [facility] [address] [id number] [place] [address]- 1209 Feb, [facility] [place] [facility] [address] [id number] [place] [address]- 4479 Feb, [facility] [place] [facility] [address] [id number] [place] [address]- 4571 Feb, [facility] [place] [facility] [address] [id number] [place] [address]- 6410 Feb, [facility] [place] [facility] [address] [id number] [place] [address]- 6588 Feb, [facility] [place] [facility] [address] [id number] [place] [address]- 7508 Feb, [facility] [place] [facility] [address] [id number] [place] [address]- 3195 Feb, [facility] [place] [facility] [address] [id number] [place] [address]- 1255 Feb, [facility] [place] [facility] [address] [id number] [place] [address]- 6624 Feb, [facility] [place] [facility] [address] [id number] [address] Feb, [facility] [place] [facility] [address] [id number] [address] Jan, [facility] [place] [facility] [address] [id number] [place] [address] 22 Jan, 2014 [facility] [place] [facility] [address] [id number] [place] [address] 16 Jan, 2014 [facility] [place] [facility] [address] [id number] [address] 16 Jan, 2014 [facility] [place] [facility] [address] [id number] [address] Jan, [facility] [place] [facility] [address] [id number] [place] [address] Jan, [facility] [place] [facility] [address] [id number] [place] [address] Jan, [facility] [place] [facility] [address] [id number] [place] [address] Dec, [facility] [place] [facility] [address] [id number] [place] [address] Dec, [facility] [place] [facility] [address] [id number] [place] [address] Dec, [facility] [place] [facility] [address] [id number] [place] [address] Dec, [facility] [place] [facility] [address] [id number] [place] [address] 164[address] Dec, [facility] [place] [facility] [address] [id number] [place] [address] Dec, [facility] [place] [facility] [address] [id number] [place] [address] Dec, [facility] [place] [facility] [address] [id number] [place] [address] Dec, [facility] [place] [facility] [address] [id number] [place] [address] Oct, [facility] [place] [facility] [address] [id number] [place] [address]66 Oct, [facility] [place] [facility] [address] [id number] [place] [address] September, [facility] [place] [facility] [address] [id number] [place] [address] September, [facility] [place] [facility] [address] [id number] [place] [address] September, [facility] [place] [facility] [address] [id number] [place] [address] 79[address] September, [facility] [place] [facility] [address] [id number] [place] [address] September, [facility] [place] [facility] [address] [id number] [place] [address]- [address] September, [facility] [place] [facility] [address] [id number] [place] [address] 120[address] September, [facility] [place] [facility] [address] [id number] [place] [address] Aug, [facility] [place] [facility] [address] [id number] [place] [address] Aug, [facility] [place] [facility] [address] [facility] [id number] [place] [address] Jul, [facility] [place] [facility] [address] [id number] [place] [address] Jul, [facility] [place] [facility] [address] [id number] [place] [address] Jul, [facility] [place] [facility] [address] [facility] [id number] [place] [address] Jul, [facility] [place] [facility] [address] [facility] [id number] [place] [address] Jul, [facility] [place] [facility] [address] [id number] [address] Jul, [facility] [place] [facility] [address] [id number] [place] [address] Jul, [facility] [place] [facility] [address] [id number] [place] [address] Jul, [facility] [place] [facility] [address] [id number] [place] [address] May, [facility] [place] [facility] [address] [id number] [place] [address] 15 May, 2013 [facility] [place] [facility] [address] [id number] [place] [address] May, [facility] [place] [facility] [address] [id number] [place] [address] 14 May, 2013 [facility] [place] [facility] [address] [facility] [id number] [place] [address] 18 Apr, 2013 [facility] [place] [facility] [address] [id number] [place] [address] Mar, [facility] [place] [facility] [address] [id number] [place] [address] Mar, [facility] [place] [facility] [address] [id number] [place] [address] Mar, [facility] [place] [facility] [address] [facility] [id number] [place] [address] Mar, [facility] [place] [facility] [address] [id number] [place] [address] Mar, [facility] [place] [facility] [address] [id number] [place] [address] Mar, [facility] [place] [facility] [address] [facility] [id number] [place] [address] Mar, [facility] [place] [facility] [address] [id number] [address] Mar, [facility] [place] [facility] [address] [id number] [address] Mar, [facility] [place] [facility] [address] [id number] [address] Mar, [facility] [place] [facility] [address] [facility] [id number] [address] Mar, [facility] [place] [facility] [address] [facility] [id number] [address] Mar, [facility] [place] [facility] [address] [id number] [place] [address] 15 Feb, 2013 [facility] [place] [facility] [address] [id number] [place] [address] 15 Feb, 2013 [facility] [place] [facility] [address] [id number] [place] [address] Feb, [facility] [place] [facility] [address] [id number] [place] [address] Feb, [facility] [place] [facility] [address] [id number] [place] [address]377 Feb, [facility] [place] [facility] [address] [id number] [place] [address] Jan, [facility] [place] [facility] [address] [id number] [place] [address] Dec, [facility] [place] [facility] [address] [id number] [place] [address]15 Dec, [facility] [place] [facility] [address] [id number] [place] [address] 1618 Dec, [facility] [place] [facility] [address] [id number] [place] [address] Nov, [facility] [place] [facility] [address] [id number] [place] [address]120 Nov, [facility] [place] [facility] [address] [id number] [place] [address] Nov, [facility] [place] [facility] [address] [id number] [place] [address]64 Oct, [facility] [place] [facility] [address] [id number] [place] [address]804 Oct, [facility] [place] [facility] [address] [id number] [place] [address]- [address]46 Oct, [facility] [place] [facility] [address] [id number] [place] [address] 1357 September, [facility] [address] [id number] [place] [address] September, [facility] [address] [id number] [place] [address]177 September, [facility] [address] [id number] [place] [address] 8904 September, [facility] [address] [id number] [place] [address] September, [facility] [address] [id number] [place] [address]471 Aug, [facility] [address] [id number] [place] [address]- 6785 Aug, [facility] [address] [id number] [place] [address] Aug, [facility] [address] [id number] [place] [address]304 Jul, [facility] [address] [id number] [place] [address] Jul, [facility] [place] [facility] [address] [id number] [place] [address] 7688 Jul, [facility] [place] [facility] [address] [id number] [place] [address] 8740 Jul, [facility] [place] [facility] [address] [id number] [address] Jul, [facility] [place] [facility] [address] [id number] [place] [address] 9456 Jul, [facility] [place] [facility] [address] [id number] [place] [address] Jul, [facility] [place] [facility] [address] [id number] [place] [address] 9768 May, [facility] [place] [facility] [address] [id number] [place] [address] May, [facility] [place] [facility] [address] [id number] [place] [address]- 7593 May, [facility] [place] [facility] [address] [id number] [place] [address] 4672 Apr, [facility] [place] [facility] [address] [id number] [place] [address]- 9089 Apr, [facility] [place] [facility] [address] [id number] [place] [address]- 7536 Apr, [facility] [place] [facility] [address] [id number] [place] [address] 4775 Apr, [facility] [place] [facility] [address] [id number] [place] [address]- 9786 Apr, [facility] [place] [facility] [address] [id number] [place] [address]- 0284 Mar, [facility] [place] [facility] [address] [id number] [place] [address] 2914 Mar, [facility] [place] [facility] [address] [id number] [place] [address]- 6289 Mar, [facility] [place] [facility] [address] [facility] [id number] [place] [address] 4441 Mar, [facility] [place] [facility] [address] [id number] [place] [address] 9666 Feb, [facility] [place] [facility] [address] [id number] [place] [address] 3169 Feb, [facility] [place] [facility] [address] [id number] [place] [address]- 1362 Feb, [facility] [place] [facility] [address] [id number] [place] [address]- 7776 Feb, [facility] [place] [facility] [address] [id number] [place] [address] 0070 Feb, [facility] [place] [facility] [address] [id number] [place] [address] 8540 Jan, [facility] [place] [facility] [address] [id number] [place] [address]- 9706 Dec, [facility] [place] [facility] [address] [id number] [place] [address]- 2486 Dec, [facility] [place] [facility] [address] [id number] [place] [address]- 2946 Dec, [facility] [address] [id number] [place] [address] Nov, [facility] [place] [facility] [address] [id number] [place] [address]- 3244 Nov, [facility] [address] [id number] [place] [address]- 2837 Nov, [facility] [address] [id number] [place] [address]- 9773 Oct, [facility] [place] [facility] [address] [id number] [place] [address]- 3105 Oct, [facility] [place] [facility] [address] [id number] [place] [address]- 7661 Oct, [facility] [place] [facility] [address] [id number] [place] [address]- 7355 Oct, [facility] [place] [facility] [address] [id number] [place] [address]- 4461 September, [facility] [place] [facility] [address] [id number] [place] [address]- 6103 September, [facility] [place] [facility] [address] [id number] [place] [address]- 2625 30 Aug, 2011 [facility] [place] [facility] [address] [id number] [place] [address]- 2938 Aug, [facility] [place] [facility] [address] [id number] [place] [address]- 3654 Aug, [facility] [address] [id number] [place] [address]- 9736 Aug, [facility] [place] [facility] [address] [id number] [place] [address]- 9796 Aug, [facility] [place] [facility] [address] [id number] [place] [address]- 4907 Aug, [facility] [place] [facility] [address] [id number] [place] [address]- 2448 Aug, [facility] [place] [facility] [address] [id number] [place] [address]- 7452 Jul, [facility] [place] [facility] [address] [id number] [place] [address]- 4965 Jul, [facility] [place] [facility] [address] [id number] [place] [address]- 7733 Jul, [facility] [place] [facility] [address] [id number] [place] [address]- 2847 May, [facility] [place] [facility] [address] [id number] [place] [address]- 8467 May, [facility] [place] [facility] [address] [id number] [place] [address]- 9176 May, [facility] [place] [facility] [address] [id number] [place] [address]- 9229 Apr, [facility] [place] [facility] [address] [id number] [place] [address]- 0815 Apr, [facility] [place] [facility] [address] [id number] [place] [address]- 7825 Mar, [facility] [place] [facility] [address] [id number] [place] [address]- 2585 Mar, [facility] [place] [facility] [address] [id number] [place] [address]- 7118 Mar, [facility] [place] [facility] [address] [facility] [id number] [place] [id number] 11 Mar, 2011 [facility] [address] [facility] [place] [id number] [address]- [address]90 Mar, [facility] [address] [id number] [address]- 9943 Mar, [facility] [address] [facility] [id number] [place] [address]- 6591 Feb, [facility] [address] [facility] [id number] [address]- 0080 Feb, [facility] [address] [facility] [id number] [address]- 2[address] Feb, IMMUNIZATIONS No Known Immunizations SOCIAL HISTORY Never Assessed REASON FOR VISIT Controlled Med Refill PLAN OF CARE VITAL SIGNS MEDICATIONS Medication Instructions Dosage Frequency Start Date End Date Duration Status Hydrocodone-Acetaminophen 10-325 MG Orally every 6 hrs 1 tablet as needed 6h Mar, 28 days Active Soma 350 mg Orally Once a day 1 tablet as needed 24h 28 days Active MS Contin 15 MG Orally every 8 hours 1 tablet 8h Mar, 28 days Active Xanax 2 MG Orally 4 times a day PRN 1/2 tablet May, 28 days Active RESULTS No Results PROCEDURES [...]
--- OUTSIDE RECORDS SUMMARY | 2018-05-16 06:49 | XMS REPORT ---
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 Name Role Phone FERNY SILVERIO Unavailable PROBLEMS Type Condition ICD9-CM Code ZPN61-RC Code Onset Dates Condition Status SNOMED Code Problem Hypoxia R09.02 Active 462007132 Problem Port catheter in place Z95.828 Active 713101165 Problem Anxiety F41.9 Active 75424795 Problem Type 2 diabetes mellitus with diabetic peripheral angiopathy without gangrene E11.51 Active 902255139 Problem Pressure ulcer of other site, stage 3 L89.893 Active 874104980 Problem Lumbar radiculopathy, chronic M54.16 Active 648694118 Problem PAD (peripheral artery disease) I73.9 Active 121732135 Problem terminal carman current use of insulin Z79.4 Active 993440153 Problem Recurrent major depressive disorder, in full remission F33.42 Active 255698861 Problem Diabetes E11.9 Active 45876489 Problem Hypertension I10 Active 69297897 Problem Back pain M54.9 Active 749127332 Problem Insulin long-term use Z79.4 Active 094617242 Problem COPD (chronic obstructive pulmonary disease) J44.9 Active 88065155 ALLERGIES No Information ENCOUNTERS Encounter Location Date Diagnosis [facility] [address] [address] Mar, [facility] [address] [address] 56[address] Mar, [facility] [address] [address] 8[address] Mar, [facility] [address] [address] 85[address] Mar, Encounter for immunization Z23 [facility] [id number] [place] [address] 49052- 6150 Feb, Back pain M54.9 and Anxiety F41.9 [facility] [address] [address]- 7675 04 Feb, 2018 Back pain M54.9 and Anxiety F41.9 [facility] [id number] [place] [address] 36909- 7093 Jan, Back pain M54.9 and Anxiety F41.9 [facility] [id number] [place] [address] 95033- 1822 Jan, [facility] [address] [address]- 0975 Dec, [facility] [id number] [place] [address] 57060- 3520 Dec, Back pain M54.9 and Anxiety F41.9 [facility] [id number] [place] [address] 39458- 0776 Dec, Diabetes E11.9 ; Type 2 diabetes mellitus with diabetic peripheral angiopathy without gangrene E11.51 ; Lumbar radiculopathy, chronic M54.16 ; COPD (chronic obstructive pulmonary disease) J44.9 and Anxiety F41.9 [facility] [id number] [place] [address] 35568- 7619 Dec, Back pain M54.9 and Anxiety F41.9 [facility] [id number] [place] [address] 93627- 8239 Nov, Back pain M54.9 and Anxiety F41.9 [facility] [id number] [place] [address] 47003- 2567 Oct, [facility] [id number] [place] [address] 20406- 8995 2017 Back pain M54.9 and Anxiety F41.9 [facility] [id number] [place] [address] 33267- 9102 September, Anxiety F41.9 and Back pain M54.9 [facility] [id number] [place] [address] 67535- 9246 September, Diabetes E11.9 ; Hypertension I10 ; COPD (chronic obstructive pulmonary disease) J44.9 and Lumbar radiculopathy, chronic M54.16 [facility] [id number] [place] [address] 55266- 0582 September, Anxiety F41.9 [facility] [id number] [place] [address] 03623- 6941 Aug, [facility] [address] 16970- 7354 Aug, [facility] [id number] [place] [address] 56649- 2661 Aug, Anxiety F41.9 and Back pain M54.9 [facility] [id number] [place] [address] 31945- 0921 Aug, Medicare annual wellness visit, initial Z00.00 ; COPD ( chronic obstructive pulmonary disease) J44.9 ; PAD (peripheral artery disease) I73.9 ; Insulin long-term use Z79.4 ; Hypertension I10 ; Anxiety F41.9 ; Recurrent major depressive disorder, in full remission F33.42 ; Pressure ulcer of other site, stage 3 L89.893 ; Type 2 diabetes mellitus with diabetic peripheral angiopathy without gangrene E11.51 and terminal carman current use of insulin Z79.4 [facility] [id number] [place] [address] 62399- 1112 Jul, Back pain M54.9 [facility] [id number] [place] [address] 50761- 2810 Jul, [facility] [id number] [place] [address] 01813- 4003 Jul, Anxiety F41.9 and Back pain M54.9 [facility] [address] [place] [address]- 6485 Jul, Diabetes E11.9 [facility] [address] 39777- 8447 May, [facility] [id number] [place] [address] 26151- 5729 May, Diabetes E11.9 ; Anxiety F41.9 ; Back pain M54.9 and COPD ( chronic obstructive pulmonary disease) J44.9 [facility] [id number] [place] [address] 97391- 7497 May, Back pain M54.9 [facility] [address] 50105- 1045 May, [facility] [id number] [place] [address] 66905- 5508 Apr, Back pain M54.9 [facility] [address] 09988- 8067 Mar, Back pain M54.9 [facility] [id number] [place] [address] 20792- 6756 Mar, [facility] [id number] [place] [address] 44776- 6492 16 Mar, 2017 [facility] [id number] [place] [address] 88264- 9611 14 Mar, 2017 Radiculopathy of lumbar region M54.16 [facility] [id number] [place] [address] 94207- 2619 13 Mar, 2017 [facility] [id number] [place] [address] 63906- 0769 07 Mar, 2017 Encounter for immunization Z23 and Lumbar radiculopathy, chronic M54.16 [facility] [id number] [place] [address] 15096- 5846 Mar, Back pain M54.9 and Anxiety F41.9 [facility] [address], [place] [address] 10 Feb, 2017 Acute bilateral low back pain with left-sided sciatica M54.42 and Acute bilateral low back pain with right-sided sciatica M54.41 [facility] [id number] [place] [address] 37487- 4222 Feb, [facility] [id number] [place] [address] 63600- 1759 Feb, Back pain M54.9 [facility] [id number] [place] [address] 67117- 5374 05 Jan, 2017 Back pain M54.9 and Anxiety F41.9 [facility] [id number] [place] [address] 67320- 0886 05 Jan, 2017 Diabetes E11.9 [facility] [id number] [place] [address] 10710- 5154 Dec, Diabetes E11.9 ; Back pain M54.9 ; Anxiety F41.9 and Insulin long-term use Z79.4 [facility] [id number] [place] [address] 01606- 5236 Dec, Anxiety F41.9 [facility] [id number] [place] [address] 95810- 2583 Dec, Back pain M54.9 [facility] [id number] [place] [address] 32823- 2669 Nov, Back pain M54.9 [facility] [id number] [place] [address] 12504- 8683 Oct, Back pain M54.9 and Anxiety F41.9 [facility] [id number] [place] [address] 99903- 1167 September, Back pain M54.9 [facility] [id number] [place] [address] 43894- 6130 September, Back pain M54.9 and Anxiety F41.9 [facility] [id number] [place] [address] 55987- 1574 Aug, Diabetes E11.9 ; Anxiety F41.9 ; Back pain M54.9 and PAD ( peripheral artery disease) I73.9 [facility] [id number] [place] [address] 46298- 8646 19 Aug, 2016 Anxiety F41.9 [facility] [address] 66506- 7425 Aug, Back pain M54.9 [facility] [address] 94999- 3214 Jul, Back pain M54.9 [facility] [id number] [place] [address] 23941- 3659 Jul, Back pain M54.9 [facility] [address] 68518- 4824 Jul, Back pain M54.9 [facility] [id number] [place] [address] 69536- 8984 16 Jul, 2016 Dorsalgia M54.9 [facility] [id number] [place] [address] 21349- 0358 Jul, [facility] [id number] [place] [address] 29186- 4001 May, Back pain M54.9 [facility] [id number] [place] [address] 00623- 9522 May, Diabetes E11.9 ; Anxiety F41.9 ; Port catheter in place Z95.828 ; Encounter for immunization Z23 and Insulin long-term use Z79.4 [facility] [id number] [place] [address] 49737- 0763 Apr, Back pain M54.9 [facility] [id number] [place] [address] 85581- 4932 Apr, Back pain M54.9 [facility] [address] [address]- 0760 Apr, [facility] [id number] [place] [address] 24409- 9177 Apr, Back pain M54.9 [facility] [id number] [place] [address] 95856- 7082 Mar, COPD (chronic obstructive pulmonary disease) J44.9 [facility] [address] [facility] [id number] [place] [address] 23640- 1075 Feb, [facility] [id number] [place] [address] 17120- 8125 Jan, [facility] [id number] [place] [address] 76899- 5670 Jan, [facility] [id number] [place] [address] 22821- 8531 Jan, [facility] [id number] [place] [address] 44634- 9046 Jan, [facility] [id number] [place] [address] 95917- 3626 Dec, Diabetes E11.9 ; Hypoxia R09.02 and Back pain M54.9 [facility] [address] [place] [address] 25065- 1019 Dec, [facility] [id number] [place] [address] 49196- 7205 Nov, [facility] [id number] [place] [address] 65279- 1161 Oct, Anxiety F41.9 [facility] [id number] [place] [address] 10238- 8132 Oct, Back pain M54.9 [facility] [id number] [place] [address] 11642- 4134 September, Back pain M54.9 [facility] [id number] [place] [address] 73520- 2108 September, Diabetes E11.9 [facility] [id number] [place] [address] 77277- 1497 September, [facility] [id number] [place] [address] 97768- 2092 September, Diabetes E11.9 ; Insulin long-term use Z79.4 and Back pain M54.9 [facility] [id number] [place] [address] 99549- 4322 Aug, Back pain M54.9 [facility] [id number] [place] [address] 71808- 9912 Aug, Back pain M54.9 ; Anxiety F41.9 and Arthropathy, unspecified M12.9 [facility] [id number] [place] [address] 42559- 3164 Jul, Back pain M54.9 [facility] [id number] [place] [address] 19257- 5888 Jul, Anxiety F41.9 [facility] [id number] [place] [address] 07940- 6043 Jul, Back pain M54.9 [facility] [id number] [place] [address] 72893- 6212 Jul, [facility] [id number] [place] [address] 54336- 9615 Jul, [facility] [id number] [place] [address] 97944- 4252 May, Back pain M54.9 ; Diabetes E11.9 ; Insulin long-term use Z79.4 ; COPD (chronic obstructive pulmonary disease) J44.9 and Hypertension I10 [facility] [id number] [place] [address] 17301- 3782 May, Chronic pain G89.29 [facility] [address] [address]- 7912 Apr, [facility] [address]- 8658 Apr, [facility] [address], [place] [address]- 7240 Mar, [facility] [id number] [place] [address] 58323- 8339 Mar, Encounter for immunization Z23 and Diabetes E11.9 [facility] [id number] [place] [address] 43119- 0495 Feb, [facility] [id number] [place] [address] 46329- 0355 Feb, [facility] [id number] [place] [address] 82181- 2834 Jan, [facility] [address] [address]- 5562 Jan, [facility] [address] [place] [address] 46365- 4083 Dec, [facility] [address], [place] [address]- 8191 Dec, [facility] [address] [place] [address] 09541- 8423 Dec, Unspecified arthropathy, site unspecified 716.90 and Diabetes mellitus type 2, uncontrolled 250.02 [facility] [address] [address]- 7823 Dec, [facility] [address]- 7760 Nov, [facility] [address], [place] [address]- 9999 Oct, [facility] [address] [place] [address]- 9910 September, [facility] [address] [id number] [place] [address]- 1743 September, [facility] [place] [facility] [address] [id number] [place]- 5829 18 Sep, 2014 [facility] [address] [id number] [place] [address]- 7348 September, [facility] [place] [facility] [address] [id number] [place] [address]- 2675 14 Aug, 2014 [facility] [address] [id number] [place] [address]- 7410 13 Aug, 2014 [facility] [address] [id number] [place] [address]- 9482 18 Jul, 2014 [facility] [place] [facility] [address] [id number] [place] [address]- 6689 18 Jul, 2014 [facility] [address] [id number] [place] [address]- 5510 16 Jul, 2014 [facility] [place] [facility] [address] [id number] [place] [address]- 7793 16 Jul, 2014 [facility] [address] [id number] [place] [address]- 2164 16 Jul, 2014 [facility] [place] [facility] [address] [id number] [place] [address]- 0763 16 Jul, 2014 [facility] [place] [facility] [address] [id number] [place] [address]- 8695 16 Jul, 2014 [facility] [place] [facility] [address] [id number] [place] [address]- 7738 16 Jul, 2014 [facility] [place] [facility] [address] [id number] [place] [address]- 7896 16 Jul, 2014 [facility] [place] [facility] [address] [id number] [place] [address]- 4264 13 Jul, 2014 [facility] [place] [facility] [address] [id number] [place] [address]- 5368 13 Jul, 2014 [facility] [place] [facility] [address] [id number] [place] [address]- 0456 09 Jul, 2014 [facility] [place] [facility] [address] [id number] [place] [address]- 5814 09 Jul, 2014 [facility] [place] [facility] [address] [id number] [place] [address]- 5286 17 Jul, 2014 [facility] [place] [facility] [address] [id number] [place] [address]- 8760 17 Jul, 2014 [facility] [place] [facility] [address] [id number] [place] [address]- 7478 16 Jul, 2014 [facility] [place] [facility] [address] [facility] [id number] [place] [address]- 8452 16 Jul, 2014 [facility] [place] [facility] [address] [id number] [place] [address]- 6891 16 Jul, 2014 [facility] [place] [facility] [address] [facility] [id number] [place] [address]- 4301 16 Jul, 2014 [facility] [place] [facility] [address] [facility] [id number] [place] [address]- 5764 16 Jul, 2014 [facility] [place] [facility] [address] [facility] [id number] [place] [address]- 9486 16 Jul, 2014 [facility] [place] [facility] [address] [id number] [place] [address]- 7462 16 Jul, 2014 [facility] [place] [facility] [address] [id number] [place] [address]- 4531 16 Jul, 2014 [facility] [place] [facility] [address] [facility] [id number] [place] [address]- 7208 16 Jul, 2014 [facility] [place] [facility] [address] [facility] [id number] [place] [address]- 1144 16 Jul, 2014 [facility] [place] [facility] [address] [id number] [place] [address]- 9429 16 Jul, 2014 [facility] [place] [facility] [address] [id number] [place] [address]- 4440 Jul, [facility] [place] [facility] [address] [id number] [place] [address]- 9227 Jul, [facility] [place] [facility] [address] [id number] [place] [address]- 1783 Jul, [facility] [place] [facility] [address] [id number] [place] [address]- 8312 May, [facility] [place] [facility] [address] [id number] [place] [address]- 1038 May, [facility] [place] [facility] [address] [id number] [place] [address]- 8889 May, [facility] [place] [facility] [address] [id number] [place] [address]- 5151 May, [facility] [place] [facility] [address] [id number] [place] [address]- 1381 May, [facility] [place] [facility] [address] [id number] [place] [address]- 8472 May, [facility] [place] [facility] [address] [id number] [place] [address]- 1476 May, [facility] [place] [facility] [address] [id number] [place] [address]- 6744 May, [facility] [place] [facility] [address] [id number] [place] [address]- 8512 May, [facility] [place] [facility] [address] [id number] [place] [address]- 1592 May, [facility] [place] [facility] [address] [id number] [place] [address]- 9663 Apr, [facility] [place] [facility] [address] [id number] [address]- 5029 Apr, [facility] [place] [facility] [address] [id number] [place] [address]- 4973 Apr, [facility] [place] [facility] [address] [id number] [place] [address]- 4170 Apr, [facility] [place] [facility] [address] [id number] [place] [address]- 5387 Apr, [facility] [place] [facility] [address] [id number] [place] [address]- 5705 Apr, [facility] [place] [facility] [address] [id number] [place] [address]- 0156 Mar, [facility] [place] [facility] [address] [id number] [place] [address]- 3323 Mar, [facility] [place] [facility] [address] [id number] [place] [address]- 3548 Mar, [facility] [place] [facility] [address] [id number] [place] [address] Mar, [facility] [place] [facility] [address] [id number] [place] [address] Mar, [facility] [place] [facility] [address] [id number] [place] [address] Mar, [facility] [place] [facility] [address] [id number], [place] [address] Mar, [facility] [place] [facility] [address] [id number], [place] [address] Mar, [facility] [place] [facility] [address] [id number] [place] [address] Mar, [facility] [place] [facility] [address] [id number], [place] [address] Mar, [facility] [place] [facility] [address] [id number], [place] [address] Mar, [facility] [place] [facility] [address] [id number] [place] [address] 30 Feb, 2014 [facility] [place] [facility] [address] [id number] [place] [address] 30 Feb, 2014 [facility] [place] [facility] [address] [id number] [place] [address] 15 Feb, 2014 [facility] [place] [facility] [address] [id number] [place] [address] 15 Feb, 2014 [facility] [place] [facility] [address] [id number] [place] [address] Feb, [facility] [place] [facility] [address] [id number] [place] [address] Feb, [facility] [place] [facility] [address] [id number] [place] [address] Feb, [facility] [place] [facility] [address] [id number] [place] [address] Feb, [facility] [place] [facility] [address] [id number] [place] [address] Feb, [facility] [place] [facility] [address] [id number] [place] [address] Feb, [facility] [place] [facility] [address] [id number] [place] [address] 22 Jan, 2014 [facility] [place] [facility] [address] [id number] [place] [address] 22 Jan, 2013 [facility] [place] [facility] [address] [id number] [place] [address] 16 Jan, 2013 [facility] [place] [facility] [address] [id number] [place] [address] 16 Jan, 2013 [facility] [place] [facility] [address] [id number] [place] [address]- [address] 12 Jan, 2013 [facility] [place] [facility] [address] [id number] [place] [address] Jan, [facility] [place] [facility] [address] [id number] [place] [address] Jan, [facility] [place] [facility] [address] [id number] [place] [address] Dec, [facility] [place] [facility] [address] [id number] [place] [address] Dec, [facility] [place] [facility] [address] [id number] [place] [address] Dec, [facility] [place] [facility] [address] [id number] [place] [address] Dec, [facility] [place] [facility] [address] [id number] [place] [address] Dec, [facility] [place] [facility] [address] [id number] [place] [address] Dec, [facility] [place] [facility] [address] [id number] [place] [address] Dec, [facility] [place] [facility] [address] [id number] [place] [address] Dec, [facility] [place] [facility] [address] [id number] [place] [address] Oct, [facility] [place] [facility] [address] [id number] [place] [address] Oct, [facility] [place] [facility] [address] [id number] [place] [address] September, [facility] [place] [facility] [address] [id number] [place] [address] September, [facility] [place] [facility] [address] [id number] [place] [address] September, [facility] [place] [facility] [address] [address] [id number] [place] [address] September, [facility] [place] [facility] [address] [id number] [place] [address] September, [facility] [place] [facility] [address] [id number] [place] [address] September, [facility] [place] [facility] [address] [id number] [place] [address] September, [facility] [place] [facility] [address] [id number] [place] [address] 15 Aug, 2013 [facility] [place] [facility] [address] [id number] [place] [address] 9[address] 15 Aug, 2013 [facility] [place] [facility] [address] [id number] [place] [address] 24 Jul, 2013 [facility] [place] [facility] [address] [id number] [place] [address] 9579 24 Jul, 2013 [facility] [place] [facility] [address] [id number] [place] [address] 0695 17 Jul, 2013 [facility] [place] [facility] [address] [id number] [place] [address] 8[address] 17 Jul, 2013 [facility] [place] [facility] [address] [id number] [place] [address] 7098 14 Jul, 2013 [facility] [place] [facility] [address] [facility] [id number] [place] [address] 1562 14 Jul, 2013 [facility] [place] [facility] [address] [id number] [place] [address] Jul, [facility] [place] [facility] [address] [id number] [place] [address] 5735 03 Jul, 2013 [facility] [place] [facility] [address] [id number] [place] [address] 0014 15 May, 2013 [facility] [place] [facility] [address] [id number] [place] [address] 3712 15 May, 2013 [facility] [place] [facility] [address] [id number] [place] [address] 1907 14 May, 2013 [facility] [place] [facility] [address] [id number] [place] [address] 2390 14 May, 2013 [facility] [place] [facility] [address] [id number] [place] [address] 5772 18 Apr, 2013 [facility] [place] [facility] [address] [id number] [place] [address] 5092 20 Mar, 2013 [facility] [place] [facility] [address] [id number] [place] [address] 265[address] Mar, [facility] [place] [facility] [address] [id number] [place] [address] 2803 Mar, [facility] [place] [facility] [address] [id number] [place] [address] 9015 Mar, [facility] [place] [facility] [address] [id number] [place] [address] 4365 18 Mar, 2013 [facility] [place] [facility] [address] [id number] [address] 45[address] 18 Mar, 2013 [facility] [place] [facility] [address] [id number] [place] [address] 0955 18 Mar, 2013 [facility] [place] [facility] [address] [id number], [place] [address]96 18 Mar, 2013 [facility] [place] [facility] [address] [id number], [place] [address]398 Mar, [facility] [place] [facility] [address] [id number], [place] [address] 48[address] 11 Mar, 2013 [facility] [place] [facility] [address] [id number], [place] [address] Mar, [facility] [place] [facility] [address] [id number], [place] [address] 6[address] 04 Mar, 2013 [facility] [place] [facility] [address] [id number][place] [address] 15 Feb, 2013 [facility] [place] [facility] [address] [id number], [place] [address] 24[address] Feb, [facility] [address] [id number] [place] [address] 9595 Feb, [facility] [place] [facility] [address] [id number] [place] [address] 8548 Feb, [facility] [place] [facility] [address] [id number] [place] [address] 0501 Feb, [facility] [place] [facility] [address] [id number] [place] [address] 3801 Jan, [facility] [place] [facility] [address] [id number] [place] [address] 2119 Dec, [facility] [place] [facility] [address] [id number] [place] [address] 4555 Dec, [facility] [place] [facility] [address] [id number] [place] [address] 4889 Dec, [facility] [place] [facility] [address] [id number] [place] [address] 4681 Nov, [facility] [place] [facility] [address] [id number] [place] [address] 2827 Nov, [facility] [place] [facility] [address] [id number] [place] [address] 9899 Nov, [facility] [place] [facility] [address] [id number] [place] [address] 2568 Oct, [facility] [place] [facility] [address] [id number] [place] [address] 0036 Oct, [facility] [place] [facility] [address] [id number] [place] [address] Oct, [facility] [place] [facility] [address] [id number] [place] [address] 2782 September, [facility] [place] [facility] [address] [id number] [place] [address] 5756 September, [facility] [place] [facility] [address] [id number] [place] [address] 5142 September, [facility] [address] [id number] [place] [address] 1554 September, [facility] [address] [id number] [place] [address] 7343 September, [facility] [address] [id number] [place] [address] 0445 Aug, [facility] [address] [id number] [place] [address] 4695 Aug, [facility] [address] [id number] [place] [address] 2958 Aug, [facility] [address] [id number] [place] [address] 0235 Jul, [facility] [address] [id number] [place] [address] 1382 Jul, [facility] [address] [id number] [place] [address] 0804 Jul, [facility] [address] [id number] [place] [address] 0357 Jul, [facility] [address] [id number] [place] [address] 0147 Jul, [facility] [address] [id number] [place] [address]- 9883 Jul, [facility] [address] [id number] [place] [address] 2135 Jul, [facility] [place] [facility] [address] [id number] [place] [address] 1988 May, [facility] [place] [facility] [address] [id number] [place] [address]- 1854 May, [facility] [place] [facility] [address] [id number] [place] [address]- 4634 May, [facility] [place] [facility] [address] [id number] [place] [address]- 3948 Apr, [facility] [place] [facility] [address] [id number] [place] [address]- 2546 Apr, [facility] [place] [facility] [address] [facility] [id number] [place] [address]- 2546 Apr, [facility] [place] [facility] [address] [id number] [place] [address]- 2546 Apr, [facility] [place] [facility] [address] [id number] [place] [address]- 2546 Apr, [facility] [place] [facility] [address] [id number] [place] [address]- 7736 Mar, [facility] [place] [facility] [address] [id number] [place] [address] 2546 Mar, [facility] [place] [facility] [address] [id number] [address]- 4343 Mar, [facility] [place] [facility] [address] [id number], [place] [address]- 9303 Mar, [facility] [place] [facility] [address] [facility] [id number], [place] [address]- 2636 Feb, [facility] [place] [facility] [address] [id number], [place] [address] 2546 Feb, [facility] [place] [facility] [address] [id number], [place] [address]- 2546 Feb, [facility] [place] [facility] [address] [id number] [address]- 2546 Feb, [facility] [place] [facility] [address] [facility] [id number], [place] [address]- 2546 Feb, [facility] [place] [facility] [address] [facility] [id number][place] [address]- 2546 Jan, [facility] [place] [facility] [address] [id number] [place] [address]- 4443 Dec, [facility] [place] [facility] [address] [id number] [place] [address]- 0793 Dec, [facility] [place] [facility] [address] [id number] [place] [address] Dec, [facility] [place] [facility] [address] [id number] [place] [address]- 4404 Nov, [facility] [place] [facility] [address] [id number] [place] [address]- 3052 Nov, [facility] [place] [facility] [address] [id number] [place] [address]- 5663 Nov, [facility] [place] [facility] [address] [id number] [place] [address]- 2299 Oct, [facility] [place] [facility] [address] [id number] [place] [address]- 0104 Oct, [facility] [place] [facility] [address] [id number] [place] [address]- 5222 Oct, [facility] [place] [facility] [address] [id number] [place] [address]- 6279 Oct, [facility] [place] [facility] [address] [id number] [place] [address]- 1074 September, [facility] [place] [facility] [address] [id number] [place] [address]- 4721 September, [facility] [place] [facility] [address] [id number] [place] [address]- 7684 30 Aug, 2011 [facility] [place] [facility] [address] [id number] [place] [address]- 4507 Aug, [facility] [place] [facility] [address] [id number] [place] [address]- 6172 Aug, [facility] [place] [facility] [address] [id number] [place] [address]- 9023 Aug, [facility] [place] [facility] [address] [id number] [place] [address]- 3937 Aug, [facility] [address] [id number] [place] [address]- 7146 Aug, [facility] [address] [id number] [place] [address]- 0126 Aug, [facility] [address] [id number] [place] [address]- 6086 Jul, [facility] [address] [id number] [place] [address]- 1620 Jul, [facility] [place] [facility] [address] [id number] [place] [address]- 8595 Jul, [facility] [address] [id number] [place] [address]- 4378 May, [facility] [address] [id number] [place] [address]- 1342 May, [facility] [address] [id number] [place] [address]- 1558 May, [facility] [address] [id number] [place] [address]- 6785 Apr, [facility] [place] [facility] [address] [id number] [place] [address]- 4358 Apr, [facility] [place] [facility] [address] [id number], [place] [address]- 0858 Mar, [facility] [place] [facility] [address] [id number] [place] [address]- 1902 Mar, [facility] [place] [facility] [address] [id number] [place] [address]- 8586 Mar, [facility] [place] [facility] [address] [id number] [place] [address]- 3808 Mar, [facility] [place] [facility] [address] [id number] [place] [address]- 2546 Mar, [facility] [address] [facility] [id number] [address]- 5946 Mar, [facility] [address] [facility] [id number], [place] [address] 2546 Feb, [facility] [address] [facility] [id number][place] [address]- 2029 Feb, [facility] [address] [facility] [id number] [address]- 3287 Feb, IMMUNIZATIONS No Known Immunizations SOCIAL HISTORY Never Assessed REASON FOR VISIT Prior Authorization PLAN OF CARE VITAL SIGNS MEDICATIONS Unknown Medications RESULTS No Results PROCEDURES No Known procedures [...]
--- OUTSIDE RECORDS SUMMARY | 2018-05-16 06:50 | XMS REPORT ---
Author Author FERNY SILVERIO Organization [facility] Address [address] [place] [address] Care Team Providers Care Project Management Engineer Name Role Phone FERNY SILVERIO Unavailable PROBLEMS Type Condition ICD9-CM Code [id number] Code Onset Dates Condition Status SNOMED Code Problem Hypoxia R09.02 Active 188396383 Problem Port catheter in place Z95.828 Active 809311050 Problem Anxiety F41.9 Active 38152583 Problem Type 2 diabetes mellitus with diabetic peripheral angiopathy without gangrene E11.51 Active 203686198 Problem Pressure ulcer of other site, stage 3 L89.893 Active 807696536 Problem Lumbar radiculopathy, chronic M54.16 Active 175273193 Problem PAD (peripheral artery disease) I73.9 Active 980168369 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 328026598 Problem Recurrent major depressive disorder, in full remission F33.42 Active 142816986 Problem Diabetes E11.9 Active 32323872 Problem Hypertension I10 Active 45243564 Problem Back pain M54.9 Active 568874824 Problem Insulin long-term use Z79.4 Active 623987264 Problem COPD (chronic obstructive pulmonary disease) J44.9 Active 01900675 ALLERGIES No Information ENCOUNTERS Encounter Location Date Diagnosis [place] [address] [address] Mar, [facility] [address], [place] [address] 98[address] Mar, Encounter for immunization Z23 [place] [id number] [place] [address] 16937- 6477 31 Feb, 2018 Back pain M54.9 and Anxiety F41.9 [place] [id number] [place] [address] 37020- 7776 Feb, Back pain M54.9 and Anxiety F41.9 [facility] [id number] [place] [address] 69860- 4769 Jan, Back pain M54.9 and Anxiety F41.9 [facility] [id number] [place] [address] 03763- 1806 Jan, [facility] [id number] [place] [address] 70055- 0174 Dec, [facility] [id number] [place] [address] 24221- 1220 Dec, Back pain M54.9 and Anxiety F41.9 [place] [address] [id number] [place] [address] 41519- 3394 Dec, Diabetes E11.9 ; Type 2 diabetes mellitus with diabetic peripheral angiopathy without gangrene E11.51 ; Lumbar radiculopathy, chronic M54.16 ; COPD (chronic obstructive pulmonary disease) J44.9 and Anxiety F41.9 [place] [address] [address] [id number] [place] [address] 75937- 7647 Dec, Back pain M54.9 and Anxiety F41.9 [place] [address] [place] [id number] [place] [address] 44990- 6755 Nov, Back pain M54.9 and Anxiety F41.9 [place] [address] [address] [id number] [place] [address] 93107- 7525 Oct, [facility] [id number] [place] [address] 73350- 7074 Oct, Back pain M54.9 and Anxiety F41.9 [place] [address] [id number] [place] [address] 79123- 0149 September, Anxiety F41.9 and Back pain M54.9 [place] [address] [id number] [place] [address] 89169- 2973 September, Diabetes E11.9 ; Hypertension I10 ; COPD (chronic obstructive pulmonary disease) J44.9 and Lumbar radiculopathy, chronic M54.16 [facility] [address] [address] 1254 September, Anxiety F41.9 [facility] [id number] [place] [address] 61346- 4749 Aug, [place] [address] [place] [id number] [place] [address] 31262- 0311 Aug, [place] [address] [place] [id number] [place] [address] 84378- 1116 Aug, Anxiety F41.9 and Back pain M54.9 [place] [address] [place] [id number] [place] [address] 04974- 4256 Aug, Medicare annual wellness visit, initial Z00.00 ; COPD ( chronic obstructive pulmonary disease) J44.9 ; PAD (peripheral artery disease) I73.9 ; Insulin long-term use Z79.4 ; Hypertension I10 ; Anxiety F41.9 ; Recurrent major depressive disorder, in full remission F33.42 ; Pressure ulcer of other site, stage 3 L89.893 ; Type 2 diabetes mellitus with diabetic peripheral angiopathy without gangrene E11.51 and long-term current use of insulin Z79.4 [place] [address], [place] [address] 2933 Jul, Back pain M54.9 [place] [address] [address] 3569 Jul, [facility] [id number] [place] [address] 17104- 1680 Jul, Anxiety F41.9 and Back pain M54.9 [place] [id number] [place] [address] 22337- 9497 Jul, Diabetes E11.9 [place] [address] [address]- 3828 May, [place] [address] [place] [id number] [place] [address] 41626- 7726 May, Diabetes E11.9 ; Anxiety F41.9 ; Back pain M54.9 and COPD ( chronic obstructive pulmonary disease) J44.9 [facility] [id number] [place] [address] 26588- 2814 May, Back pain M54.9 [facility] [address] [id number] [place] [address] 69422- 8971 May, [facility] [address] [place] [address] [id number] [place] [address] 38978- 7398 Apr, Back pain M54.9 [place] [address] 61964- 8772 Mar, Back pain M54.9 [place] [address] 55221- 2709 Mar, [facility] [address] 06199- 4869 Mar, [facility] [address] [place] [id number] [place] [address] 25207- 4049 14 Mar, 2017 Radiculopathy of lumbar region M54.16 [place] [address] [place] [id number] [place] [address] 09957- 2460 13 Mar, 2017 [facility] [address] [place] [address] [id number] [place] [address] 90839- 8659 07 Mar, 2017 Encounter for immunization Z23 and Lumbar radiculopathy, chronic M54.16 [facility] [id number] [place] [address] 06082- 5005 Mar, Back pain M54.9 and Anxiety F41.9 [facility] [address] [id number] [place] [address] 51044 -6983 10 Feb, 2017 Acute bilateral low back pain with left-sided sciatica M54.42 and Acute bilateral low back pain with right-sided sciatica M54.41 [facility] [address] [id number] [place] [address] 39481- 5022 Feb, [facility] [address] [id number] [place] [address] 01670- 5953 Feb, Back pain M54.9 [facility] [id number] [place] [address] 75184- 3969 05 Jan, 2017 Back pain M54.9 and Anxiety F41.9 [facility] [address] [id number] [place] [address] 12357- 6092 05 Jan, 2017 Diabetes E11.9 [facility] [address] [place] [address] [id number] [place] [address] 59122- 9602 Dec, Diabetes E11.9 ; Back pain M54.9 ; Anxiety F41.9 and Insulin long-term use Z79.4 [facility] [address] [id number] [place] [address] 26371- 5063 Dec, Anxiety F41.9 [facility] [id number] [place] [address] 66867- 8307 Dec, Back pain M54.9 [facility] [address] [place] [id number] [place] [address] 67235- 2807 Nov, Back pain M54.9 [facility] [id number] [place] [address] 89438- 6958 Oct, Back pain M54.9 and Anxiety F41.9 [facility] [address] [id number] [place] [address] 80050- 8855 September, Back pain M54.9 [facility] [address] [id number] [place] [address] 25223- 3182 September, Back pain M54.9 and Anxiety F41.9 [facility] [address] [place] [address] 77630- 9373 Aug, Diabetes E11.9 ; Anxiety F41.9 ; Back pain M54.9 and PAD ( peripheral artery disease) I73.9 [facility] [address] [place] [id number] [place] [address] 91757- 7073 Aug, Anxiety F41.9 [facility] [address] 64173- 9256 14 Aug, 2016 Back pain M54.9 [facility] [address] 29690- 5346 Jul, Back pain M54.9 [facility] [address] 16553- 0110 Jul, Back pain M54.9 [facility] [address] 19314- 4185 Jul, Back pain M54.9 [facility] [address] 91505- 9068 16 Jul, 2016 Dorsalgia M54.9 [facility] [address] 07222- 0908 Jul, [facility] [address] 34669- 2353 May, Back pain M54.9 [facility] [address] [place] [id number] [place] [address] 17043- 6873 06 May, 2016 Diabetes E11.9 ; Anxiety F41.9 ; Port catheter in place Z95.828 ; Encounter for immunization Z23 and Insulin long-term use Z79.4 [facility] [address] [place] [id number] [place] [address] 86461- 4060 Apr, Back pain M54.9 [facility] [address] 25092- 1103 Apr, Back pain M54.9 [facility] [address] 78947- 9170 05 Apr, 2016 [facility] [address] 55576- 1637 Apr, Back pain M54.9 [facility] [id number] [place] [address] 91927- 3287 Mar, COPD (chronic obstructive pulmonary disease) J44.9 [facility] [address] [facility] [id number] [place] [address] 76132- 4256 Feb, [facility] [address] [id number] [place] [address] 66444- 5368 30 Jan, 2016 [facility] [address] [facility] [id number] [place] [address] 49644- 8646 Jan, [facility] [id number] [place] [address] 07622- 7044 Jan, [facility] [id number] [place] [address] 15343- 0076 Jan, [facility] [address] [id number] [place] [address] 89976- 7547 Dec, Diabetes E11.9 ; Hypoxia R09.02 and Back pain M54.9 [facility] [address] [id number] [place] [address] 74913- 5545 Dec, [facility] [address] [id number] [place] [address] 77913- 1369 Nov, [facility] [id number] [place] [address] 29955- 6011 Oct, Anxiety F41.9 [facility] [address] [id number] [place] [address] 03244- 5374 Oct, Back pain M54.9 [facility] [id number] [place] [address] 41244- 1137 September, Back pain M54.9 [facility] [id number] [place] [address] 31523- 0509 September, Diabetes E11.9 [facility] [address] [place] [id number] [place] [address] 36646- 8577 September, [facility] [address] [id number] [place] [address] 00234- 5196 September, Diabetes E11.9 ; Insulin long-term use Z79.4 and Back pain M54.9 [facility] [address] [id number] [place] [address] 05599- 2998 Aug, Back pain M54.9 [facility] [address] [id number] [place] [address] 54482- 2367 Aug, Back pain M54.9 ; Anxiety F41.9 and Arthropathy, unspecified M12.9 [facility] [address] 80779- 6161 Jul, Back pain M54.9 [facility] [address] [id number] [place] [address] 55957- 7497 Jul, Anxiety F41.9 [facility] [address] [place] [id number] [place] [address] 34821- 5444 Jul, Back pain M54.9 [facility] [address] [id number] [place] [address] 66337- 9650 Jul, [facility] [address] [id number] [place] [address] 82614- 6754 Jul, [facility] [id number] [place] [address] 95438- 2083 May, Back pain M54.9 ; Diabetes E11.9 ; Insulin long-term use Z79.4 ; COPD (chronic obstructive pulmonary disease) J44.9 and Hypertension I10 [facility] [address] [id number] [place] [address] 92384- 0430 May, Chronic pain G89.29 [facility] [address] [id number] [place] [address] 81696- 2866 Apr, [facility] [address] 15690- 7471 Apr, [facility] [address], [place] [address]- 7635 Mar, [facility] [address], [place] [address]- 6072 Mar, Encounter for immunization Z23 and Diabetes E11.9 [facility] [id number] [place] [address] 48594- 9590 Feb, [facility] [id number] [place] [address] 44157- 1188 Feb, [facility] [id number] [place] [address] 31247- 8760 Jan, [facility] [id number] [place] [address] 71941- 7879 Jan, [facility] [id number] [place] [address] 37162- 5765 Dec, [facility] [address], [place] [address]- 5834 Dec, [facility] [address] [place] [address] 17913- 0639 Dec, Unspecified arthropathy, site unspecified 716.90 and Diabetes mellitus type 2, uncontrolled 250.02 [facility] [address], [place] [address]- 7026 Dec, [facility] [address], [place] [address]- 9765 Nov, [facility] [address], [place] [address]- 2065 Oct, [facility] [address], [place] [address]- 2430 September, [facility] [address], [place] [address]- 4511 September, [facility] [address] [place] [address]- 2770 18 Sep, 2014 [facility] [address] [id number] [place] [address]- 1833 11 Sep, 2014 [facility] [place] [facility] [address] [id number] [place] [address]- 3457 14 Aug, 2014 [facility] [place] [facility] [address] [id number] [place] [address]- 0583 13 Aug, 2014 [facility] [place] [facility] [address] [id number] [place] [address]- 6191 18 Jul, 2014 [facility] [place] [facility] [address] [id number] [place] [address]- 7879 18 Jul, 2014 [facility] [place] [facility] [address] [id number] [place] [address]- 4913 16 Jul, 2014 [facility] [place] [facility] [address] [id number] [place] [address]- 0409 16 Jul, 2014 [facility] [place] [facility] [address] [id number] [place] [address]- 3950 16 Jul, 2014 [facility] [place] [facility] [address] [id number] [place] [address]- 3568 16 Jul, 2014 [facility] [place] [facility] [address] [id number] [place] [address]- 7381 16 Jul, 2014 [facility] [place] [facility] [address] [id number] [place] [address]- 7862 16 Jul, 2014 [facility] [place] [facility] [address] [id number] [place] [address]- 3910 16 Jul, 2014 [facility] [place] [facility] [address] [id number] [place] [address]- 7867 13 Jul, 2014 [facility] [place] [facility] [address] [id number] [place] [address]- 8322 13 Jul, 2014 [facility] [place] [facility] [address] [id number] [place] [address]- 2798 09 Jul, 2014 [facility] [place] [facility] [address] [id number] [place] [address]- 4293 Jul, 2014 [facility] [place] [facility] [address] [id number] [place] [address]- 6936 Jul, 2014 [facility] [place] [facility] [address] [id number] [place] [address]- 6806 17 Jul, 2014 [facility] [place] [facility] [address] [id number] [place] [address]- 3498 16 Jul, 2014 [facility] [place] [facility] [address] [id number] [place] [address]- 7684 Jul, 2014 [facility] [place] [facility] [address] [id number] [place] [address]- 0343 Jul, 2014 [facility] [place] [facility] [address] [facility] [id number] [place] [address]- 3360 Jul, 2014 [facility] [place] [facility] [address] [id number] [place] [address]- 4363 Jul, 2014 [facility] [place] [facility] [address] [facility] [id number] [place] [address]- 9894 Jul, 2014 [facility] [place] [facility] [address] [facility] [id number] [place] [address]- 0922 Jul, 2014 [facility] [place] [facility] [address] [id number] [place] [address]- 3470 Jul, 2014 [facility] [place] [facility] [address] [id number] [place] [address]- 6622 Jul, 2014 [facility] [place] [facility] [address] [facility] [id number] [place] [address]- 6398 Jul, 2014 [facility] [place] [facility] [address] [id number] [place] [address]- 1758 16 Jul, 2014 [facility] [place] [facility] [address] [facility] [id number] [place] [address]- 6887 16 Jul, 2014 [facility] [place] [facility] [address] [id number] [place] [address]- 4614 Jul, [facility] [place] [facility] [address] [id number] [place] [address]- 9609 Jul, [facility] [place] [facility] [address] [id number] [place] [address]- 5306 May, [facility] [place] [facility] [address] [id number] [place] [address]- 2506 May, [facility] [place] [facility] [address] [id number] [place] [address]- 5810 May, [facility] [place] [facility] [address] [id number] [place] [address]- 9177 May, [facility] [place] [facility] [address] [id number] [place] [address]- 5901 May, [facility] [place] [facility] [address] [id number] [place] [address]- 3748 May, [facility] [place] [facility] [address] [id number] [place] [address]- 4128 May, [facility] [place] [facility] [address] [id number] [place] [address]- 1894 May, [facility] [place] [facility] [address] [id number] [place] [address]- 4354 May, [facility] [place] [facility] [address] [id number] [place] [address]- 0872 May, [facility] [place] [facility] [address] [id number] [place] [address]- 8208 Apr, [facility] [place] [facility] [address] [id number] [place] [address]- 3759 Apr, [facility] [place] [facility] [address] [id number] [place] [address]- 6542 Apr, [facility] [place] [facility] [address] [id number] [address]- 8767 Apr, [facility] [place] [facility] [address] [id number] [place] [address]- 6050 Apr, [facility] [place] [facility] [address] [id number] [place] [address]- 4139 Apr, [facility] [place] [facility] [address] [id number] [place] [address]- 3141 Mar, [facility] [place] [facility] [address] [id number] [place] [address]- 0994 Mar, [facility] [place] [facility] [address] [id number] [place] [address]- 5988 Mar, [facility] [place] [facility] [address] [id number] [place] [address]- 0251 Mar, [facility] [place] [facility] [address] [id number] [place] [address]- 4235 Mar, [facility] [place] [facility] [address] [id number] [place] [address]- 1476 Mar, [facility] [place] [facility] [address] [id number] [place] [address] Mar, [facility] [place] [facility] [address] [id number] [place] [address] Mar, [facility] [place] [facility] [address] [id number], [place] [address] Mar, [facility] [place] [facility] [address] [id number], [place] [address] Mar, [facility] [place] [facility] [address] [id number] [place] [address] Mar, [facility] [place] [facility] [address] [id number], [place] [address] Feb, [facility] [place] [facility] [address] [id number] [place] [address] Feb, [facility] [place] [facility] [address] [id number] [place] [address] 15 Feb, 2014 [facility] [place] [facility] [address] [id number] [place] [address] 15 Feb, 2014 [facility] [place] [facility] [address] [id number] [place] [address] Feb, [facility] [place] [facility] [address] [id number] [place] [address] Feb, [facility] [place] [facility] [address] [id number] [place] [address] Feb, [facility] [place] [facility] [address] [id number] [place] [address]- [address] Feb, [facility] [place] [facility] [address] [id number] [place] [address] Feb, [facility] [place] [facility] [address] [id number] [place] [address] Feb, [facility] [place] [facility] [address] [id number] [place] [address] Jan, [facility] [place] [facility] [address] [id number] [place] [address] 22 Jan, 2014 [facility] [place] [facility] [address] [id number] [place] [address]- [address] 16 Jan, 2014 [facility] [place] [facility] [address] [id number] [place] [address]- [address] 16 Jan, 2013 [facility] [place] [facility] [address] [id number] [place] [address]- [address] 12 Jan, 2014 [facility] [place] [facility] [address] [id number] [place] [address]- [address] Jan, [facility] [place] [facility] [address] [id number] [place] [address] Jan, [facility] [place] [facility] [address] [id number] [place] [address]- [address] Dec, [facility] [place] [facility] [address] [id number] [place] [address] Dec, [facility] [place] [facility] [address] [id number] [place] [address]- [address] Dec, [facility] [place] [facility] [address] [id number] [place] [address]- [address] Dec, [facility] [place] [facility] [address] [id number] [place] [address]- [address] Dec, [facility] [place] [facility] [address] [id number] [place] [address] Dec, [facility] [place] [facility] [address] [id number] [place] [address] Dec, [facility] [place] [facility] [address] [id number] [place] [address] Dec, [facility] [place] [facility] [address] [id number] [place] [address] Oct, [facility] [place] [facility] [address] [id number] [place] [address] Oct, [facility] [place] [facility] [address] [id number] [place] [address] September, [facility] [place] [facility] [address] [id number] [place] [address] September, [facility] [place] [facility] [address] [id number] [place] [address] September, [facility] [place] [facility] [address] [id number] [place] [address]- [address] September, [facility] [place] [facility] [address] [id number] [place] [address]- [address] September, [facility] [place] [facility] [address] [id number] [place] [address] September, [facility] [place] [facility] [address] [id number] [place] [address]- 4[address] September, [facility] [address] [id number] [place] [address] Aug, [facility] [place] [facility] [address] [id number] [place] [address] Aug, [facility] [place] [facility] [address] [id number] [place] [address] 24 Jul, 2013 [facility] [place] [facility] [address] [id number] [place] [address] 24 Jul, 2013 [facility] [place] [facility] [address] [id number] [place] [address] Jul, [facility] [place] [facility] [address] [id number] [place] [address] Jul, [facility] [place] [facility] [address] [id number] [place] [address] 5965 14 Jul, 2013 [facility] [place] [facility] [address] [id number] [place] [address]47 Jul, [facility] [place] [facility] [address] [id number] [place] [address] Jul, [facility] [place] [facility] [address] [id number] [place] [address] Jul, [facility] [place] [facility] [address] [id number] [place] [address]- 3262 May, [facility] [place] [facility] [address] [id number] [place] [address]- 9568 May, [facility] [place] [facility] [address] [id number] [place] [address]- 9983 May, [facility] [place] [facility] [address] [id number] [place] [address]- 6518 May, [facility] [place] [facility] [address] [id number] [place] [address] Apr, [facility] [place] [facility] [address] [id number] [place] [address]- 9418 Mar, [facility] [place] [facility] [address] [id number] [place] [address]- 8400 Mar, [facility] [place] [facility] [address] [id number] [place] [address]- 6378 Mar, [facility] [place] [facility] [address] [id number] [place] [address]- 3578 Mar, [facility] [place] [facility] [address] [id number] [place] [address]- 1588 Mar, [facility] [place] [facility] [address] [id number] [place] [address]- 2088 Mar, [facility] [place] [facility] [address] [id number] [place] [address]- 9111 Mar, [facility] [place] [facility] [address] [id number], [place] [address]398 Mar, [facility] [place] [facility] [address] [id number], [place] [address] Mar, [facility] [place] [facility] [address] [id number], [place] [address] 1592 Mar, [facility] [place] [facility] [address] [facility] [id number], [place] [address]6 Mar, [facility] [place] [facility] [address] [id number], [place] [address] 04 Mar, 2013 [facility] [place] [facility] [address] [id number], [place] [address] 15 Feb, 2013 [facility] [place] [facility] [address] [id number], [place] [address] 15 Feb, 2013 [facility] [place] [facility] [address] [facility] [id number], [place] [address] 11 Feb, 2013 [facility] [place] [facility] [address] [id number], [place] [address] Feb, [facility] [address] [id number] [place] [address] 2215 Feb, [facility] [place] [facility] [address] [id number] [place] [address] 475[address] Jan, [facility] [place] [facility] [address] [id number] [place] [address]- 3454 Dec, [facility] [place] [facility] [address] [id number] [place] [address]- 0288 Dec, [facility] [place] [facility] [address] [id number] [place] [address] 7829 Dec, [facility] [place] [facility] [address] [id number] [place] [address] 3860 Nov, [facility] [place] [facility] [address] [id number] [place] [address]- 8928 Nov, [facility] [place] [facility] [address] [id number] [place] [address]- 5842 Nov, [facility] [place] [facility] [address] [id number] [place] [address]- 1751 Oct, [facility] [place] [facility] [address] [id number] [place] [address]- 8102 Oct, [facility] [place] [facility] [address] [id number] [place] [address]- 9144 Oct, [facility] [place] [facility] [address] [id number] [place] [address]- 2299 September, [facility] [place] [facility] [address] [id number] [place] [address]- 3950 September, [facility] [place] [facility] [address] [id number] [place] [address]- 1419 September, [facility] [place] [facility] [address] [id number] [place] [address]- 5288 September, [facility] [place] [facility] [address] [id number] [place] [address]- 2177 September, [facility] [address] [id number] [place] [address] 9174 Aug, [facility] [place] [facility] [address] [id number] [place] [address]- 6579 Aug, [facility] [address] [id number] [place] [address]- 2107 Aug, [facility] [address] [id number] [place] [address] 7438 Jul, [facility] [address] [id number] [place] [address]- 5187 Jul, [facility] [address] [id number] [place] [address]- 8767 Jul, [facility] [address] [id number] [place] [address]- 2067 Jul, [facility] [address] [id number] [place] [address]- 9353 Jul, [facility] [address] [id number] [place] [address]- 6290 Jul, [facility] [address] [id number] [place] [address]- 2777 Jul, [facility] [address] [id number] [place] [address]- 1706 May, [facility] [address] [id number] [place] [address]- 7612 May, [facility] [place] [facility] [address] [id number] [place] [address]- 4913 May, [facility] [place] [facility] [address] [id number] [place] [address] Apr, [facility] [address] [id number] [place] [address]- 2639 Apr, [facility] [place] [facility] [address] [id number] [place] [address] 2546 Apr, [facility] [place] [facility] [address] [id number] [place] [address]- 2546 Apr, [facility] [place] [facility] [address] [facility] [id number] [place] [address]- 2546 Apr, [facility] [place] [facility] [address] [id number] [place] [address]- 2546 Mar, [facility] [place] [facility] [address] [id number] [place] [address] 2546 Mar, [facility] [place] [facility] [address] [id number] [place] [address]- 8186 Mar, [facility] [place] [facility] [address] [id number] [place] [address]- 2546 Mar, [facility] [place] [facility] [address] [id number], [place] [address]- 0426 Feb, [facility] [place] [facility] [address] [id number] [place] [address]- 8126 Feb, [facility] [place] [facility] [address] [id number], [place] [address]- 6476 Feb, [facility] [place] [facility] [address] [id number], [place] [address]- 2546 Feb, [facility] [place] [facility] [address] [id number], [place] [address]- 2546 Feb, [facility] [place] [facility] [address] [id number], [place] [address]- 2546 Jan, [facility] [place] [facility] [address] [facility] [id number], [place] [address]- 2546 Dec, [facility] [place] [facility] [address] [facility] [id number], [place] [address]- 2546 Dec, [facility] [place] [facility] [address] [id number] [place] [address]- 1993 Dec, [facility] [place] [facility] [address] [id number] [place] [address]- 4396 Nov, [facility] [place] [facility] [address] [id number] [place] [address]- 3856 Nov, [facility] [place] [facility] [address] [id number] [place] [address]- 6280 Nov, [facility] [place] [facility] [address] [id number] [place] [address]- 6648 Oct, [facility] [place] [facility] [address] [id number] [place] [address]- 3766 Oct, [facility] [place] [facility] [address] [id number] [place] [address]- 9840 Oct, [facility] [place] [facility] [address] [id number] [place] [address]- 3067 Oct, [facility] [place] [facility] [address] [id number] [place] [address]- 8610 September, [facility] [place] [facility] [address] [id number] [place] [address]- 3054 September, [facility] [place] [facility] [address] [id number] [place] [address]- 4310 30 Aug, 2011 [facility] [place] [facility] [address] [id number] [place] [address]- 2591 Aug, [facility] [place] [facility] [address] [id number] [place] [address]- 3009 10 Aug, 2011 [facility] [place] [facility] [address] [id number] [place] [address]- 6757 Aug, [facility] [place] [facility] [address] [id number] [place] [address]- 7426 Aug, [facility] [place] [facility] [address] [id number] [place] [address]- 6028 Aug, [facility] [place] [facility] [address] [id number] [place] [address]- 2956 Aug, [facility] [place] [facility] [address] [id number] [place] [address]- 3500 Jul, [facility] [place] [facility] [address] [id number] [place] [address]- 3453 Jul, [facility] [place] [facility] [address] [id number] [place] [address]- 0669 Jul, [facility] [address] [id number] [place] [address]- 5886 May, [facility] [place] [facility] [address] [id number] [place] [address]- 3795 May, [facility] [address] [id number] [place] [address]- 7404 May, [facility] [address] [id number] [place] [address]- 6484 Apr, [facility] [place] [facility] [address] [id number] [place] [address]- 8427 Apr, [facility] [address] [id number] [place] [address]- 5552 Mar, [facility] [place] [facility] [address] [id number] [place] [address]- 5790 Mar, [facility] [place] [facility] [address] [id number], [place] [address]- 1114 Mar, [facility] [place] [facility] [address] [id number] [place] [address]- 3859 Mar, [facility] [place] [facility] [address] [id number] [place] [address]- 0937 Mar, [facility] [place] [facility] [address] [id number] [place] [address]- 2811 Mar, [facility] [place] [facility] [address] [id number], [place] [address]- 2024 Feb, [facility] [address] [facility] [id number] [place] [address]- 3798 Feb, [facility] [address] [facility] [id number] [place] [address] Feb, IMMUNIZATIONS No Known Immunizations SOCIAL HISTORY Never Assessed REASON FOR VISIT medication PLAN OF CARE VITAL SIGNS MEDICATIONS Unknown [...]
--- OUTSIDE RECORDS SUMMARY | 2018-05-16 06:50 | XMS REPORT ---
Author Author FERNY SILVERIO [facility] Address [address] [place] [address] Care Team Providers Care Message And Delivery Service Pricer Name Role Phone FERNY SILVERIO Unavailable PROBLEMS Type Condition ICD9-CM Code HIY50-IQ Code Onset Dates Condition Status SNOMED Code Problem Hypoxia R09.02 Active 808421709 Problem Port catheter in place Z95.828 Active 007817436 Problem Anxiety F41.9 Active 78903424 Problem Type 2 diabetes mellitus with diabetic peripheral angiopathy without gangrene E11.51 Active 163715620 Problem Pressure ulcer of other site, stage 3 L89.893 Active 206218581 Problem Lumbar radiculopathy, chronic M54.16 Active 954140272 Problem PAD (peripheral artery disease) I73.9 Active 924705648 Problem 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 Active 610375414 Problem Recurrent major depressive disorder, in full remission F33.42 Active 817571510 Problem Diabetes E11.9 Active 27583447 Problem Hypertension I10 Active 01811809 Problem Back pain M54.9 Active 021966292 Problem Insulin long-term use Z79.4 Active 949426441 Problem COPD (chronic obstructive pulmonary disease) J44.9 Active 67130670 ALLERGIES No Information ENCOUNTERS Encounter Location Date Diagnosis [facility] [id number] [place] [address] Mar, [facility] [address] [place] [address] 8[address] Mar, [facility] [address] [place] [address] Mar, [facility] [id number] [place] [address] Mar, Encounter for immunization Z23 [facility] [id number] [place] [address] 33157- 6019 Feb, Back pain M54.9 and Anxiety F41.9 [facility] [address] [address]- [address] 04 Feb, 2018 Back pain M54.9 and Anxiety F41.9 [facility] [id number] [place] [address] 41740- 9522 Jan, Back pain M54.9 and Anxiety F41.9 [facility] [id number] [place] [address] 42419- 6007 Jan, [facility] [address] [address]- 3920 Dec, [facility] [id number] [place] [address] 57198- 7993 Dec, Back pain M54.9 and Anxiety F41.9 [facility] [id number] [place] [address] 76541- 1238 Dec, Diabetes E11.9 ; Type 2 diabetes mellitus with diabetic peripheral angiopathy without gangrene E11.51 ; Lumbar radiculopathy, chronic M54.16 ; COPD (chronic obstructive pulmonary disease) J44.9 and Anxiety F41.9 [facility] [id number] [place] [address] 05407- 3882 Dec, Back pain M54.9 and Anxiety F41.9 [facility] [id number] [place] [address] 61203- 7226 Nov, Back pain M54.9 and Anxiety F41.9 [facility] [id number] [place] [address] 60891- 5145 Oct, [facility] [id number] [place] [address] 24477- 7929 2017 Back pain M54.9 and Anxiety F41.9 [facility] [id number] [place] [address] 88235- 4437 September, Anxiety F41.9 and Back pain M54.9 [facility] [id number] [place] [address] 92972- 8727 September, Diabetes E11.9 ; Hypertension I10 ; COPD (chronic obstructive pulmonary disease) J44.9 and Lumbar radiculopathy, chronic M54.16 [facility] [id number] [place] [address] 14515- 4131 September, Anxiety F41.9 [facility] [id number] [place] [address] 02648- 8225 Aug, [facility] [address] 78173- 2604 Aug, [facility] [id number] [place] [address] 70038- 7337 Aug, Anxiety F41.9 and Back pain M54.9 [facility] [id number] [place] [address] 41059- 3788 Aug, Medicare annual wellness visit, initial Z00.00 ; COPD ( chronic obstructive pulmonary disease) J44.9 ; PAD (peripheral artery disease) I73.9 ; Insulin long-term use Z79.4 ; Hypertension I10 ; Anxiety F41.9 ; Recurrent major depressive disorder, in full remission F33.42 ; Pressure ulcer of other site, stage 3 L89.893 ; Type 2 diabetes mellitus with diabetic peripheral angiopathy without gangrene E11.51 and 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 [facility] [id number] [place] [address] 32869- 9943 Jul, Back pain M54.9 [facility] [id number] [place] [address] 34714- 0862 Jul, [facility] [id number] [place] [address] 57266- 3361 Jul, Anxiety F41.9 and Back pain M54.9 [facility] [address] [place] [address]- 4854 Jul, Diabetes E11.9 [facility] [address] 11443- 0365 May, [facility] [id number] [place] [address] 83971- 3274 May, Diabetes E11.9 ; Anxiety F41.9 ; Back pain M54.9 and COPD ( chronic obstructive pulmonary disease) J44.9 [facility] [id number] [place] [address] 45384- 8429 May, Back pain M54.9 [facility] [address] 67868- 3940 May, [facility] [id number] [place] [address] 01438- 7130 Apr, Back pain M54.9 [facility] [address] 56009- 4931 Mar, Back pain M54.9 [facility] [id number] [place] [address] 51256- 0245 Mar, [facility] [id number] [place] [address] 14034- 6350 16 Mar, 2017 [facility] [id number] [place] [address] 95507- 7328 14 Mar, 2017 Radiculopathy of lumbar region M54.16 [facility] [id number] [place] [address] 98643- 7059 13 Mar, 2017 [facility] [id number] [place] [address] 43055- 8393 07 Mar, 2017 Encounter for immunization Z23 and Lumbar radiculopathy, chronic M54.16 [facility] [id number] [place] [address] 51646- 4102 Mar, Back pain M54.9 and Anxiety F41.9 [facility] [address], [place] [address] 10 Feb, 2017 Acute bilateral low back pain with left-sided sciatica M54.42 and Acute bilateral low back pain with right-sided sciatica M54.41 [facility] [id number] [place] [address] 45462- 3023 Feb, [facility] [id number] [place] [address] 26101- 6780 Feb, Back pain M54.9 [facility] [id number] [place] [address] 31415- 0158 05 Jan, 2017 Back pain M54.9 and Anxiety F41.9 [facility] [id number] [place] [address] 02733- 6761 05 Jan, 2017 Diabetes E11.9 [facility] [id number] [place] [address] 51626- 5715 Dec, Diabetes E11.9 ; Back pain M54.9 ; Anxiety F41.9 and Insulin long-term use Z79.4 [facility] [id number] [place] [address] 20391- 9745 Dec, Anxiety F41.9 [facility] [id number] [place] [address] 33350- 9344 Dec, Back pain M54.9 [facility] [id number] [place] [address] 64799- 8818 Nov, Back pain M54.9 [facility] [id number] [place] [address] 72367- 8813 Oct, Back pain M54.9 and Anxiety F41.9 [facility] [id number] [place] [address] 06750- 2198 September, Back pain M54.9 [facility] [id number] [place] [address] 82805- 0740 September, Back pain M54.9 and Anxiety F41.9 [facility] [id number] [place] [address] 00039- 2116 Aug, Diabetes E11.9 ; Anxiety F41.9 ; Back pain M54.9 and PAD ( peripheral artery disease) I73.9 [facility] [id number] [place] [address] 60036- 0576 19 Aug, 2016 Anxiety F41.9 [facility] [address] 52547- 6221 Aug, Back pain M54.9 [facility] [address] 96032- 1422 Jul, Back pain M54.9 [facility] [id number] [place] [address] 34886- 6968 Jul, Back pain M54.9 [facility] [address] 24987- 2798 Jul, Back pain M54.9 [facility] [id number] [place] [address] 08167- 8579 16 Jul, 2016 Dorsalgia M54.9 [facility] [id number] [place] [address] 39791- 1416 Jul, [facility] [id number] [place] [address] 67857- 4797 May, Back pain M54.9 [facility] [id number] [place] [address] 06192- 9067 May, Diabetes E11.9 ; Anxiety F41.9 ; Port catheter in place Z95.828 ; Encounter for immunization Z23 and Insulin long-term use Z79.4 [facility] [id number] [place] [address] 70552- 6509 Apr, Back pain M54.9 [facility] [id number] [place] [address] 15991- 3689 Apr, Back pain M54.9 [facility] [address], [place] [address]- 9900 Apr, [facility] [id number] [place] [address] 27449- 7665 Apr, Back pain M54.9 [facility] [id number] [place] [address] 93827- 4206 Mar, COPD (chronic obstructive pulmonary disease) J44.9 [facility] [address] [facility] [id number] [place] [address] 78195- 4030 Feb, [facility] [id number] [place] [address] 18013- 4060 Jan, [facility] [id number] [place] [address] 71156- 8122 Jan, [facility] [id number] [place] [address] 53877- 8170 Jan, [facility] [id number] [place] [address] 32747- 6110 Jan, [facility] [id number] [place] [address] 04849- 9483 Dec, Diabetes E11.9 ; Hypoxia R09.02 and Back pain M54.9 [facility] [id number] [place] [address] 90691- 6449 Dec, [facility] [id number] [place] [address] 92237- 1343 Nov, [facility] [id number] [place] [address] 87774- 2209 Oct, Anxiety F41.9 [facility] [id number] [place] [address] 71396- 6102 Oct, Back pain M54.9 [facility] [id number] [place] [address] 33984- 5605 September, Back pain M54.9 [facility] [id number] [place] [address] 04404- 1577 September, Diabetes E11.9 [facility] [id number] [place] [address] 02064- 5209 September, [facility] [id number] [place] [address] 87162- 5120 September, Diabetes E11.9 ; Insulin long-term use Z79.4 and Back pain M54.9 [facility] [id number] [place] [address] 84377- 6941 Aug, Back pain M54.9 [facility] [id number] [place] [address] 38423- 9143 Aug, Back pain M54.9 ; Anxiety F41.9 and Arthropathy, unspecified M12.9 [facility] [id number] [place] [address] 31864- 0461 Jul, Back pain M54.9 [facility] [id number] [place] [address] 66585- 6744 Jul, Anxiety F41.9 [facility] [id number] [place] [address] 07386- 3877 Jul, Back pain M54.9 [facility] [id number] [place] [address] 60256- 1864 Jul, [facility] [id number] [place] [address] 31148- 1146 Jul, [facility] [id number] [place] [address] 60286- 1400 May, Back pain M54.9 ; Diabetes E11.9 ; Insulin long-term use Z79.4 ; COPD (chronic obstructive pulmonary disease) J44.9 and Hypertension I10 [facility] [id number] [place] [address] 88700- 2184 May, Chronic pain G89.29 [facility] [address], [place] [address]- 9179 Apr, [facility] [address] 9712 Apr, [facility] [address], [place] [address]- 2350 Mar, [facility] [id number] [place] [address] 52559- 9544 Mar, Encounter for immunization Z23 and Diabetes E11.9 [facility] [id number] [place] [address] 97521- 4026 Feb, [facility] [id number] [place] [address] 99752- 8159 Feb, [facility] [id number] [place] [address] 33108- 4149 Jan, [facility] [address], [place] [address]- 1035 Jan, [facility] [id number] [place] [address] 97207- 6841 Dec, [facility] [address], [place] [address]- 6168 Dec, [facility] [id number] [place] [address] 85451- 3396 Dec, Unspecified arthropathy, site unspecified 716.90 and Diabetes mellitus type 2, uncontrolled 250.02 [facility] [address], [place] [address]- 2062 Dec, [facility] [address]- 7092 Nov, [facility] [address] [place] [address]- 4265 Oct, [facility] [id number] [place] [address]- 4671 September, [facility] [address] [id number] [place] [address]- 2337 September, [facility] [place] [facility] [address] [id number] [place]- 7436 18 Sep, 2014 [facility] [address] [id number] [place] [address]- 5290 September, [facility] [place] [facility] [address] [id number] [place] [address]- 6381 14 Aug, 2014 [facility] [address] [id number] [place] [address]- 8655 13 Aug, 2014 [facility] [address] [id number] [place] [address]- 3601 18 Jul, 2014 [facility] [place] [facility] [address] [id number] [place] [address]- 2768 18 Jul, 2014 [facility] [address] [id number] [place] [address]- 4432 16 Jul, 2014 [facility] [place] [facility] [address] [id number] [place] [address]- 2018 16 Jul, 2014 [facility] [address] [id number] [place] [address]- 6408 16 Jul, 2014 [facility] [place] [facility] [address] [id number] [place] [address]- 0273 16 Jul, 2014 [facility] [place] [facility] [address] [id number] [place] [address]- 7444 16 Jul, 2014 [facility] [place] [facility] [address] [id number] [place] [address]- 9721 16 Jul, 2014 [facility] [place] [facility] [address] [id number] [place] [address]- 9386 16 Jul, 2014 [facility] [place] [facility] [address] [id number] [place] [address]- 2989 13 Jul, 2014 [facility] [place] [facility] [address] [id number] [place] [address]- 3682 13 Jul, 2014 [facility] [place] [facility] [address] [id number] [place] [address]- 8256 09 Jul, 2014 [facility] [place] [facility] [address] [id number] [place] [address]- 1765 09 Jul, 2014 [facility] [place] [facility] [address] [id number] [place] [address]- 1776 17 Jul, 2014 [facility] [place] [facility] [address] [id number] [place] [address]- 3935 17 Jul, 2014 [facility] [place] [facility] [address] [id number] [place] [address]- 5080 16 Jul, 2014 [facility] [place] [facility] [address] [facility] [id number] [place] [address]- 3489 16 Jul, 2014 [facility] [place] [facility] [address] [id number] [place] [address]- 3750 16 Jul, 2014 [facility] [place] [facility] [address] [facility] [id number] [place] [address]- 1769 16 Jul, 2014 [facility] [place] [facility] [address] [facility] [id number] [place] [address]- 2718 16 Jul, 2014 [facility] [place] [facility] [address] [facility] [id number] [place] [address]- 2729 16 Jul, 2014 [facility] [place] [facility] [address] [id number] [place] [address]- 9122 16 Jul, 2014 [facility] [place] [facility] [address] [id number] [place] [address]- 6958 16 Jul, 2014 [facility] [place] [facility] [address] [facility] [id number] [place] [address] 16 Jul, 2014 [facility] [place] [facility] [address] [facility] [id number] [place] [address] 16 Jul, 2014 [facility] [place] [facility] [address] [id number] [place] [address] 16 Jul, 2014 [facility] [place] [facility] [address] [id number] [place] [address] Jul, [facility] [place] [facility] [address] [id number] [place] [address] Jul, [facility] [place] [facility] [address] [id number] [place] [address] Jul, [facility] [place] [facility] [address] [id number] [place] [address] May, [facility] [place] [facility] [address] [id number] [place] [address] May, [facility] [place] [facility] [address] [id number] [place] [address] May, [facility] [place] [facility] [address] [id number] [place] [address] May, [facility] [place] [facility] [address] [id number] [place] [address] May, [facility] [place] [facility] [address] [id number] [place] [address] May, [facility] [place] [facility] [address] [id number] [place] [address] May, [facility] [place] [facility] [address] [id number] [place] [address] May, [facility] [place] [facility] [address] [id number] [place] [address] May, [facility] [place] [facility] [address] [id number] [place] [address]- [address] May, [facility] [place] [facility] [address] [id number] [place] [address] Apr, [facility] [place] [facility] [address] [id number], [place] [address] Apr, [facility] [place] [facility] [address] [id number] [place] [address] Apr, [facility] [place] [facility] [address] [id number] [place] [address] Apr, [facility] [place] [facility] [address] [id number] [place] [address] Apr, [facility] [place] [facility] [address] [id number] [place] [address] Apr, [facility] [place] [facility] [address] [id number] [place] [address] Mar, [facility] [place] [facility] [address] [id number] [place] [address] Mar, [facility] [place] [facility] [address] [id number] [place] [address] Mar, [facility] [place] [facility] [address] [id number] [place] [address] Mar, [facility] [place] [facility] [address] [id number] [place] [address] Mar, [facility] [place] [facility] [address] [id number] [place] [address] Mar, [facility] [place] [facility] [address] [address] [id number], [place] [address] Mar, [facility] [place] [facility] [address] [id number], [place] [address] Mar, [facility] [place] [facility] [address] [id number] [place] [address] Mar, [facility] [place] [facility] [address] [id number], [place] [address] Mar, [facility] [place] [facility] [address] [id number], [place] [address] Mar, [facility] [place] [facility] [address] [id number] [place] [address] 30 Feb, 2014 [facility] [place] [facility] [address] [id number] [place] [address] 5[address] 30 Feb, 2014 [facility] [place] [facility] [address] [id number] [place] [address]- 2966 15 Feb, 2014 [facility] [place] [facility] [address] [id number] [place] [address] 3980 15 Feb, 2014 [facility] [place] [facility] [address] [id number] [place] [address] 5564 Feb, [facility] [place] [facility] [address] [id number] [place] [address]- 5828 Feb, [facility] [place] [facility] [address] [id number] [place] [address] Feb, [facility] [place] [facility] [address] [id number] [place] [address]- 6283 Feb, [facility] [place] [facility] [address] [id number] [place] [address]- 4638 Feb, [facility] [place] [facility] [address] [id number] [place] [address]- 4766 Feb, [facility] [place] [facility] [address] [id number] [place] [address]- 9292 22 Jan, 2014 [facility] [place] [facility] [address] [id number] [place] [address]- 2548 22 Jan, 2013 [facility] [place] [facility] [address] [id number] [place] [address]- 9450 16 Jan, 2013 [facility] [place] [facility] [address] [id number] [place] [address]- 0476 16 Jan, 2013 [facility] [place] [facility] [address] [id number] [place] [address]- 0404 12 Jan, 2013 [facility] [place] [facility] [address] [id number] [place] [address]- 5392 Jan, [facility] [place] [facility] [address] [id number] [place] [address]- 2183 Jan, [facility] [place] [facility] [address] [id number] [place] [address]- 6490 Dec, [facility] [place] [facility] [address] [id number] [place] [address]- 8848 Dec, [facility] [place] [facility] [address] [id number] [place] [address]- 5190 Dec, [facility] [place] [facility] [address] [id number] [place] [address]- 0048 Dec, [facility] [place] [facility] [address] [id number] [place] [address]- 5272 Dec, [facility] [place] [facility] [address] [id number] [place] [address]- 8856 Dec, [facility] [place] [facility] [address] [id number] [place] [address]- 2621 Dec, [facility] [place] [facility] [address] [id number] [place] [address]- 1515 Dec, [facility] [place] [facility] [address] [id number] [place] [address]- 6383 Oct, [facility] [place] [facility] [address] [id number] [place] [address]- 7851 Oct, [facility] [place] [facility] [address] [id number] [place] [address]- 1566 September, [facility] [place] [facility] [address] [id number] [place] [address]- 9061 September, [facility] [place] [facility] [address] [id number] [place] [address]- 2135 September, [facility] [place] [facility] [address] [id number] [place] [address]- 6579 September, [facility] [place] [facility] [address] [id number] [place] [address]- 2045 September, [facility] [place] [facility] [address] [id number] [place] [address]- 2051 September, [facility] [place] [facility] [address] [id number] [place] [address]- 3172 September, [facility] [place] [facility] [address] [id number] [place] [address]- 3839 15 Aug, 2013 [facility] [place] [facility] [address] [id number] [place] [address]- 6322 15 Aug, 2013 [facility] [place] [facility] [address] [id number] [place] [address]- 4626 24 Jul, 2013 [facility] [place] [facility] [address] [id number] [place] [address]- 2157 24 Jul, 2013 [facility] [place] [facility] [address] [id number] [place] [address]- 0151 17 Jul, 2013 [facility] [place] [facility] [address] [id number] [place] [address]- 7119 17 Jul, 2013 [facility] [place] [facility] [address] [id number] [place] [address]- 0951 14 Jul, 2013 [facility] [place] [facility] [address] [facility] [id number] [place] [address]- 6891 14 Jul, 2013 [facility] [place] [facility] [address] [id number] [place] [address]- 5032 Jul, [facility] [place] [facility] [address] [id number] [place] [address]- 6222 03 Jul, 2013 [facility] [place] [facility] [address] [id number] [place] [address]- 3962 15 May, 2013 [facility] [place] [facility] [address] [id number] [place] [address]- 6659 15 May, 2013 [facility] [place] [facility] [address] [id number] [place] [address]- 0896 14 May, 2013 [facility] [place] [facility] [address] [id number] [place] [address]- 1676 14 May, 2013 [facility] [place] [facility] [address] [id number] [place] [address]- 5583 18 Apr, 2013 [facility] [place] [facility] [address] [id number] [place] [address]- 9593 20 Mar, 2013 [facility] [place] [facility] [address] [id number] [place] [address]- 9237 Mar, [facility] [place] [facility] [address] [id number] [place] [address]- 9401 Mar, [facility] [place] [facility] [address] [id number] [place] [address]- 8062 Mar, [facility] [place] [facility] [address] [id number] [place] [address]- 2213 18 Mar, 2013 [facility] [place] [facility] [address] [id number], [place] [address]- 0855 18 Mar, 2013 [facility] [place] [facility] [address] [id number] [place] [address]- 9632 18 Mar, 2013 [facility] [place] [facility] [address] [id number], [place] [address] 1781 18 Mar, 2013 [facility] [place] [facility] [address] [id number], [place] [address] 6711 Mar, [facility] [place] [facility] [address] [id number], [place] [address]- 3395 11 Mar, 2013 [facility] [place] [facility] [address] [id number], [place] [address]- 0563 Mar, [facility] [place] [facility] [address] [id number], [place] [address]- 0017 04 Mar, 2013 [facility] [place] [facility] [address] [id number], [place] [address]- 0277 15 Feb, 2013 [facility] [place] [facility] [address] [id number], [place] [address]- 4331 Feb, [facility] [address] [id number] [place] [address]- 5119 Feb, [facility] [place] [facility] [address] [id number] [place] [address]- 1852 Feb, [facility] [place] [facility] [address] [id number] [place] [address]- 7751 Feb, [facility] [place] [facility] [address] [id number] [place] [address]- 6935 Jan, [facility] [place] [facility] [address] [id number] [place] [address]- 1975 Dec, [facility] [place] [facility] [address] [id number] [place] [address]- 6155 Dec, [facility] [place] [facility] [address] [id number] [place] [address]- 7063 Dec, [facility] [place] [facility] [address] [id number] [place] [address]- 5524 Nov, [facility] [place] [facility] [address] [id number] [place] [address]- 9509 Nov, [facility] [place] [facility] [address] [id number] [place] [address]- 6444 Nov, [facility] [place] [facility] [address] [id number] [place] [address]- 4503 Oct, [facility] [place] [facility] [address] [id number] [place] [address]- 5675 Oct, [facility] [place] [facility] [address] [id number] [place] [address] Oct, [facility] [place] [facility] [address] [id number] [place] [address]- 7974 September, [facility] [place] [facility] [address] [id number] [place] [address]- 1006 September, [facility] [place] [facility] [address] [id number] [place] [address]- 5506 September, [facility] [address] [id number] [place] [address]- 0531 September, [facility] [address] [id number] [place] [address]- 6196 September, [facility] [address] [id number] [place] [address]- 0884 Aug, [facility] [address] [id number] [place] [address]- 9135 Aug, [facility] [address] [id number] [place] [address]- 2754 Aug, [facility] [address] [id number] [place] [address]- 5386 Jul, [facility] [address] [id number] [place] [address]- 7490 Jul, [facility] [address] [id number] [place] [address]- 4294 Jul, [facility] [address] [id number] [place] [address]- 6745 Jul, [facility] [address] [id number] [place] [address]- 0078 Jul, [facility] [address] [id number] [place] [address]- 3529 Jul, [facility] [address] [id number] [place] [address]- 1077 Jul, [facility] [place] [facility] [address] [id number] [place] [address]- 8677 May, [facility] [place] [facility] [address] [id number] [place] [address]- 4059 May, [facility] [place] [facility] [address] [id number] [place] [address]- 2616 May, [facility] [place] [facility] [address] [id number] [place] [address]- 6161 Apr, [facility] [place] [facility] [address] [id number] [place] [address]- 2546 Apr, [facility] [place] [facility] [address] [facility] [id number] [place] [address]- 2546 Apr, [facility] [place] [facility] [address] [id number] [place] [address]- 2546 Apr, [facility] [place] [facility] [address] [id number] [place] [address]- 2546 Apr, [facility] [place] [facility] [address] [id number] [place] [address]- 2626 Mar, [facility] [place] [facility] [address] [id number] [place] [address] 2546 Mar, [facility] [place] [facility] [address] [id number], [place] [address]- 6909 Mar, [facility] [place] [facility] [address] [id number], [place] [address]- 1265 Mar, [facility] [place] [facility] [address] [facility] [id number], [place] [address]- 0896 Feb, [facility] [place] [facility] [address] [id number], [place] [address] 2546 Feb, [facility] [place] [facility] [address] [id number], [place] [address]- 2546 Feb, [facility] [place] [facility] [address] [id number], [place] [address]- 2546 Feb, [facility] [place] [facility] [address] [facility] [id number], [place] [address]- 2546 Feb, [facility] [place] [facility] [address] [facility] [id number], [place] [address]- 2546 Jan, [facility] [place] [facility] [address] [id number] [place] [address]- 4269 Dec, [facility] [place] [facility] [address] [id number] [place] [address]- 3898 Dec, [facility] [place] [facility] [address] [id number] [place] [address]10 Dec, [facility] [place] [facility] [address] [id number] [place] [address]- 1097 Nov, [facility] [place] [facility] [address] [id number] [place] [address]- 9442 Nov, [facility] [place] [facility] [address] [id number] [place] [address]- 7083 Nov, [facility] [place] [facility] [address] [id number] [place] [address]- 9123 Oct, [facility] [place] [facility] [address] [id number] [place] [address]- 9075 Oct, [facility] [place] [facility] [address] [id number] [place] [address]- 2276 Oct, [facility] [place] [facility] [address] [id number] [place] [address]- 9946 Oct, [facility] [place] [facility] [address] [id number] [place] [address]- 5815 September, [facility] [place] [facility] [address] [id number] [place] [address]- 9236 September, [facility] [place] [facility] [address] [id number] [place] [address]- 5124 30 Aug, 2011 [facility] [place] [facility] [address] [id number] [place] [address]- 6079 Aug, [facility] [place] [facility] [address] [id number] [place] [address]- 1043 Aug, [facility] [place] [facility] [address] [id number] [place] [address]- 0310 Aug, [facility] [place] [facility] [address] [id number] [place] [address]- 3714 Aug, [facility] [address] [id number] [place] [address]- 7966 Aug, [facility] [address] [id number] [place] [address]- 6196 Aug, [facility] [address] [id number] [place] [address]- 4736 Jul, [facility] [address] [id number] [place] [address]- 4439 Jul, [facility] [place] [facility] [address] [id number] [place] [address]- 4012 Jul, [facility] [address] [id number] [place] [address]- 6714 May, [facility] [address] [id number] [place] [address]- 2584 May, [facility] [address] [id number] [place] [address]- 3891 May, [facility] [address] [id number] [place] [address]- 0791 Apr, [facility] [place] [facility] [address] [id number] [place] [address]- 7729 Apr, [facility] [place] [facility] [address] [id number], [place] [address]- 4276 Mar, [facility] [place] [facility] [address] [id number] [place] [address]- 7326 Mar, [facility] [place] [facility] [address] [id number] [place] [address]- 0016 Mar, [facility] [place] [facility] [address] [id number] [place] [address]- 0391 Mar, [facility] [place] [facility] [address] [id number] [place] [address]- 0656 Mar, [facility] [address] [facility] [id number], [place] [address]- 1076 Mar, [facility] [address] [facility] [id number], [place] [address]- 4996 Feb, [facility] [address] [facility] [id number], [place] [address]- 7246 Feb, [facility] [address] [facility] [id number], [place] [address]- 1087 Feb, IMMUNIZATIONS No Known Immunizations SOCIAL HISTORY Never Assessed REASON FOR VISIT PABLO Valente PLAN OF CARE VITAL SIGNS MEDICATIONS Unknown [...]
--- OUTSIDE RECORDS SUMMARY | 2018-05-16 06:51 | XMS REPORT ---
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 Name Role Phone FERNY SILVERIO Unavailable PROBLEMS Type Condition ICD9-CM Code HMX96-BO Code Onset Dates Condition Status SNOMED Code Problem Hypoxia R09.02 Active 810168001 Problem Port catheter in place Z95.828 Active 900829618 Problem Anxiety F41.9 Active 68042237 Problem Type 2 diabetes mellitus with diabetic peripheral angiopathy without gangrene E11.51 Active 845425603 Problem Pressure ulcer of other site, stage 3 L89.893 Active 662537939 Problem Lumbar radiculopathy, chronic M54.16 Active 115027335 Problem PAD (peripheral artery disease) I73.9 Active 261843623 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 Active 019882870 Problem Recurrent major depressive disorder, in full remission F33.42 Active 478554674 Problem Diabetes E11.9 Active 86446782 Problem Hypertension I10 Active 32117959 Problem Back pain M54.9 Active 671639712 Problem Insulin long-term use Z79.4 Active 824114781 Problem COPD (chronic obstructive pulmonary disease) J44.9 Active 19237672 ALLERGIES No Information ENCOUNTERS Encounter Location Date Diagnosis [facility] [id number] [place] [address] 93888- 4295 Feb, Back pain M54.9 and Anxiety F41.9 [facility] [id number] [place] [address] 88716- 6906 Feb, Back pain M54.9 and Anxiety F41.9 [facility] [address], [place] [address] 7091 Jan, Back pain M54.9 and Anxiety F41.9 [facility] [facility] [address] [place] [address]- 4971 Jan, [facility] [id number] [place] [address] 51805- 2497 Dec, [facility] [id number] [place] [address] 59932- 1643 Dec, Back pain M54.9 and Anxiety F41.9 [place] [facility] [address] 76772- 0429 Dec, Diabetes E11.9 ; Type 2 diabetes mellitus with diabetic peripheral angiopathy without gangrene E11.51 ; Lumbar radiculopathy, chronic M54.16 ; COPD (chronic obstructive pulmonary disease) J44.9 and Anxiety F41.9 [facility] [id number] [place] [address] 64655- 1621 Dec, Back pain M54.9 and Anxiety F41.9 [facility] [address] 62410- 5515 Nov, Back pain M54.9 and Anxiety F41.9 [facility] [id number] [place] [address] 35686- 8330 Oct, [facility] [id number] [place] [address] 17635- 4179 Oct, Back pain M54.9 and Anxiety F41.9 [facility] [id number] [place] [address] 50949- 0693 September, Anxiety F41.9 and Back pain M54.9 [facility] [id number] [place] [address] 88297- 6793 September, Diabetes E11.9 ; Hypertension I10 ; COPD (chronic obstructive pulmonary disease) J44.9 and Lumbar radiculopathy, chronic M54.16 [facility] [id number] [place] [address] 71002- 0928 September, Anxiety F41.9 [facility] [id number] [place] [address] 5026 Aug, [facility] [id number] [place] [address] 98548- 5440 Aug, [facility] [id number] [place] [address] 45260- 0644 Aug, Anxiety F41.9 and Back pain M54.9 [facility] [id number] [place] [address] 13073- 2234 Aug, Medicare annual wellness visit, initial Z00.00 ; COPD ( chronic obstructive pulmonary disease) J44.9 ; PAD (peripheral artery disease) I73.9 ; Insulin long-term use Z79.4 ; Hypertension I10 ; Anxiety F41.9 ; Recurrent major depressive disorder, in full remission F33.42 ; Pressure ulcer of other site, stage 3 L89.893 ; Type 2 diabetes mellitus with diabetic peripheral angiopathy without gangrene E11.51 and halfway current use of insulin Z79.4 [facility] [id number] [place] [address] 10542- 2210 Jul, Back pain M54.9 [facility] [id number] [place] [address] 04196- 2247 Jul, [facility] [id number] [place] [address] 65476- 1216 Jul, Anxiety F41.9 and Back pain M54.9 [facility] [id number] [place] [address] 25298- 2167 Jul, Diabetes E11.9 [facility] [id number] [place] [address] 15966- 5447 May, [facility] [id number] [place] [address] 55752- 2765 May, Diabetes E11.9 ; Anxiety F41.9 ; Back pain M54.9 and COPD ( chronic obstructive pulmonary disease) J44.9 [facility] [id number] [place] [address] 33174- 3442 May, Back pain M54.9 [facility] [id number] [place] [address] 65938- 5131 May, [facility] [id number] [place] [address] 88030- 5072 Apr, Back pain M54.9 [facility] [id number] [place] [address] 41741- 1864 Mar, Back pain M54.9 [facility] [id number] [place] [address] 60950- 4911 Mar, [facility] [address] 51213- 1722 16 Mar, 2017 [facility] [id number] [place] [address] 25850- 3824 14 Mar, 2017 Radiculopathy of lumbar region M54.16 [facility] [id number] [place] [address] 77346- 5641 13 Mar, 2017 [facility] [address] 26972- 7778 07 Mar, 2017 Encounter for immunization Z23 and Lumbar radiculopathy, chronic M54.16 [facility] [id number] [place] [address] 67993- 4658 Mar, Back pain M54.9 and Anxiety F41.9 [facility] [id number] [place] [address] 32407 -6672 Feb, Acute bilateral low back pain with left-sided sciatica M54.42 and Acute bilateral low back pain with right-sided sciatica M54.41 [facility] [id number] [place] [address] 56723- 5632 Feb, [facility] [id number] [place] [address] 24866- 1877 Feb, Back pain M54.9 [facility] [id number] [place] [address] 29661- 1138 05 Jan, 2017 Back pain M54.9 and Anxiety F41.9 [facility] [id number] [place] [address] 04636- 7628 05 Jan, 2017 Diabetes E11.9 [facility] [id number] [place] [address] 47780- 8795 Dec, Diabetes E11.9 ; Back pain M54.9 ; Anxiety F41.9 and Insulin long-term use Z79.4 [facility] [id number] [place] [address] 80903- 7904 Dec, Anxiety F41.9 [facility] [id number] [place] [address] 49855- 6770 Dec, Back pain M54.9 [facility] [id number] [place] [address] 59095- 5561 Nov, Back pain M54.9 [facility] [id number] [place] [address] 66958- 8185 Oct, Back pain M54.9 and Anxiety F41.9 [facility] [facility] [id number] [place] [address] 16664- 1289 September, Back pain M54.9 [facility] [id number] [place] [address] 26997- 4818 September, Back pain M54.9 and Anxiety F41.9 [facility] [id number] [place] [address] 03410- 6210 Aug, Diabetes E11.9 ; Anxiety F41.9 ; Back pain M54.9 and PAD ( peripheral artery disease) I73.9 [facility] [id number] [place] [address] 06330- 1251 Aug, Anxiety F41.9 [facility] [id number] [place] [address] 29687- 7101 Aug, Back pain M54.9 [facility] [id number] [place] [address] 35983- 1480 Jul, Back pain M54.9 [facility] [id number] [place] [address] 48816- 2771 Jul, Back pain M54.9 [facility] [id number] [place] [address] 64556- 4545 Jul, Back pain M54.9 [facility] [id number] [place] [address] 83475- 8863 Jul, Dorsalgia M54.9 [facility] [address] 61435- 7323 Jul, [facility] [address] 93396- 3278 May, Back pain M54.9 [facility] [id number] [place] [address] 83778- 9106 May, Diabetes E11.9 ; Anxiety F41.9 ; Port catheter in place Z95.828 ; Encounter for immunization Z23 and Insulin long-term use Z79.4 [facility] [id number] [place] [address] 89208- 0155 Apr, Back pain M54.9 [facility] [id number] [place] [address] 44661- 0637 Apr, Back pain M54.9 [facility] [id number] [place] [address] 48497- 4588 Apr, [facility] [id number] [place] [address] 82775- 6441 Apr, Back pain M54.9 [facility] [id number] [place] [address] 29790- 4271 Mar, COPD (chronic obstructive pulmonary disease) J44.9 [facility] [address], [place] [address]- 9795 28 Feb, 2016 [facility] [id number] [place] [address] 98126- 9874 30 Jan, 2016 [facility] [id number] [place] [address] 52485- 4218 20 Jan, 2016 [facility] [id number] [place] [address] 34657- 4183 07 Jan, 2016 [facility] [id number] [place] [address] 22226- 7450 Jan, [facility] [id number] [place] [address] 69219- 4663 Dec, Diabetes E11.9 ; Hypoxia R09.02 and Back pain M54.9 [facility] [id number] [place] [address] 37422- 0853 Dec, [facility] [id number] [place] [address] 22228- 3351 Nov, [facility] [id number] [place] [address] 54156- 3096 Oct, Anxiety F41.9 [facility] [id number] [place] [address] 57481- 3975 Oct, Back pain M54.9 [facility] [id number] [place] [address] 07296- 0755 September, Back pain M54.9 [facility] [address], [place] [address]- 6411 September, Diabetes E11.9 [facility] [id number] [place] [address] 75632- 3721 September, [facility] [address], [place] [address]- 2252 September, Diabetes E11.9 ; Insulin long-term use Z79.4 and Back pain M54.9 [facility] [id number] [place] [address] 17363- 0403 Aug, Back pain M54.9 [facility] [id number] [place] [address] 21343- 4223 Aug, Back pain M54.9 ; Anxiety F41.9 and Arthropathy, unspecified M12.9 [facility] [id number] [place] [address] 82740- 3486 Jul, Back pain M54.9 [facility] [address] 94161- 5420 Jul, Anxiety F41.9 [facility] [address] 66405- 2515 Jul, Back pain M54.9 [facility] [id number] [place] [address] 06917- 5400 Jul, [facility] [id number] [place] [address] 74561- 8991 Jul, [facility] [id number] [place] [address] 46514- 5094 May, Back pain M54.9 ; Diabetes E11.9 ; Insulin long-term use Z79.4 ; COPD (chronic obstructive pulmonary disease) J44.9 and Hypertension I10 [facility] [id number] [place] [address] 00399- 1602 May, Chronic pain G89.29 [facility] [id number] [place] [address] 83094- 0243 Apr, [facility] [address] 65381- 2636 Apr, [facility] [id number] [place] [address] 10845- 9360 Mar, [facility] [id number] [place] [address] 99004- 7016 Mar, Encounter for immunization Z23 and Diabetes E11.9 [facility] [address], [place] [address]- 0830 Feb, [facility] [id number] [place] [address] 09586- 3781 Feb, [facility] [id number] [address]- 1195 Jan, [facility] [id number] [place] [address] 40947- 8900 Jan, [facility] [id number] [place] [address] 25664- 7675 Dec, [facility] [id number] [place] [address] 82032- 7535 Dec, [facility] [id number] [place] [address] 60538- 5573 Dec, Unspecified arthropathy, site unspecified 716.90 and Diabetes mellitus type 2, uncontrolled 250.02 [facility] [address], [place] [address]- 4926 Dec, [facility] [id number] [place] [address] 03980- 0598 Nov, [facility] [address] [address]- 1421 Oct, [facility] [address], [place] [address]- 1684 September, [facility] [address] [address]- 3803 September, [facility] [id number] [place] [address] 827796- 6120 September, [facility] [address] [address]- 5786 September, [facility] [id number] [place] [address], [place] [address]- 3890 14 Aug, 2014 [facility] [place] [facility] [address] [id number] [place] [address]- 1019 13 Aug, 2014 [facility] [place] [facility] [address] [id number] [place] [address]- 9446 18 Jul, 2014 [facility] [place] [facility] [address] [id number] [place] [address]- 6107 18 Jul, 2014 [facility] [place] [facility] [address] [id number] [place] [address]- 9864 16 Jul, 2014 [facility] [place] [facility] [address] [id number] [place] [address]- 4028 16 Jul, 2014 [facility] [place] [facility] [address] [id number] [place] [address]- 5176 16 Jul, 2014 [facility] [place] [facility] [address] [id number] [place] [address]- 8452 16 Jul, 2014 [facility] [place] [facility] [address] [id number] [place] [address]- 4273 16 Jul, 2014 [facility] [place] [facility] [address] [id number] [place] [address]- 4939 16 Jul, 2014 [facility] [place] [facility] [address] [id number] [place] [address]- 8004 16 Jul, 2014 [facility] [place] [facility] [address] [id number] [place] [address]- 6320 13 Jul, 2014 [facility] [place] [facility] [address] [id number] [place] [address]- 5214 13 Jul, 2014 [facility] [place] [facility] [address] [id number] [place] [address]- 2300 09 Jul, 2014 [facility] [place] [facility] [address] [id number] [place] [address]- 6175 09 Jul, 2014 [facility] [place] [facility] [address] [id number] [place] [address]- 6870 17 Jul, 2014 [facility] [place] [facility] [address] [id number] [place] [address]- 0987 17 Jul, 2014 [facility] [place] [facility] [address] [id number] [place] [address]- 3016 16 Jul, 2014 [facility] [place] [facility] [address] [id number] [place] [address]- 5446 16 Jul, 2014 [facility] [place] [facility] [address] [id number] [place] [address] 2545 16 Jul, 2014 [facility] [place] [facility] [address] [id number] [place] [address] 2540 16 Jul, 2014 [facility] [place] [facility] [address] [id number] [place] [address]- 9822 16 Jul, 2014 [facility] [place] [facility] [address] [id number] [place] [address]- 3351 16 Jul, 2014 [facility] [place] [facility] [address] [id number] [place] [address]- 0344 16 Jul, 2014 [facility] [place] [facility] [address] [id number] [place] [address]- 9517 16 Jul, 2014 [facility] [place] [facility] [address] [id number] [place] [address]- 7986 16 Jul, 2014 [facility] [place] [facility] [address] [id number] [place] [address]- 9310 16 Jul, 2014 [facility] [place] [facility] [address] [id number] [place] [address]- 2541 16 Jul, 2014 [facility] [place] [facility] [address] [id number] [place] [address]- 4866 16 Jul, 2014 [facility] [place] [facility] [address] [id number] [place] [address]- 0233 16 Jul, 2014 [facility] [place] [facility] [address] [id number] [place] [address]- 0722 16 Jul, 2014 [facility] [place] [facility] [address] [id number] [place] [address]- 9951 May, [facility] [address] [id number] [place] [address]- 7939 May, [facility] [place] [facility] [address] [id number] [place] [address]- 3256 May, [facility] [place] [facility] [address] [id number] [place] [address]- 1521 May, [facility] [place] [facility] [address] [id number] [place] [address]- 6983 May, [facility] [place] [facility] [address] [id number] [place] [address]- 8248 May, [facility] [place] [facility] [address] [id number] [place] [address]- 9438 May, [facility] [place] [facility] [address] [id number] [place] [address]- 7213 May, [facility] [address] [id number] [place] [address]- 0671 May, [facility] [place] [facility] [address] [id number] [place] [address]- 5656 May, [facility] [place] [facility] [address] [id number] [place] [address]- 4682 Apr, [facility] [place] [facility] [address] [id number] [place] [address]- 7750 Apr, [facility] [place] [facility] [address] [id number] [place] [address]- 1525 Apr, [facility] [place] [facility] [address] [id number] [place] [address]- 7239 Apr, [facility] [place] [facility] [address] [id number] [place] [address]- 1726 Apr, [facility] [place] [facility] [address] [id number] [place] [address]- 5563 Apr, [facility] [place] [facility] [address] [id number] [place] [address]- 8097 Mar, [facility] [place] [facility] [address] [id number] [place] [address]- 7743 Mar, [facility] [place] [facility] [address] [id number] [place] [address] Mar, [facility] [place] [facility] [address] [id number] [place] [address] Mar, [facility] [place] [facility] [address] [id number] [place] [address] Mar, [facility] [place] [facility] [address] [id number] [place] [address] Mar, [facility] [place] [facility] [address] [id number] [place] [address] Mar, [facility] [place] [facility] [address] [id number] [place] [address] Mar, [facility] [place] [facility] [address] [id number] [place] [address] Mar, [facility] [place] [facility] [address] [id number], [place] [address] Mar, [facility] [place] [facility] [address] [id number], [place] [address] Mar, [facility] [place] [facility] [address] [id number], [place] [address] Feb, [facility] [place] [facility] [address] [id number] [place] [address] Feb, [facility] [place] [facility] [address] [id number], [place] [address] Feb, [facility] [place] [facility] [address] [id number] [place] [address] Feb, [facility] [place] [facility] [address] [id number] [place] [address] Feb, [facility] [place] [facility] [address] [id number] [place] [address] Feb, [facility] [place] [facility] [address] [id number] [place] [address] Feb, [facility] [place] [facility] [address] [id number] [place] [address] Feb, [facility] [place] [facility] [address] [id number] [place] [address] Feb, [facility] [place] [facility] [address] [id number] [place] [address] Feb, [facility] [place] [facility] [address] [id number] [place] [address] Jan, [facility] [place] [facility] [address] [id number] [place] [address]- [address] Jan, [facility] [place] [facility] [address] [id number] [place] [address]- [address] 16 Jan, 2013 [facility] [place] [facility] [address] [id number] [place] [address] 16 Jan, 2014 [facility] [place] [facility] [address] [id number] [place] [address]- [address] 12 Jan, 2014 [facility] [place] [facility] [address] [id number] [place] [address]- [address] Jan, [facility] [place] [facility] [address] [id number] [place] [address] Jan, [facility] [place] [facility] [address] [id number] [place] [address] Dec, [facility] [place] [facility] [address] [id number] [place] [address] Dec, [facility] [place] [facility] [address] [id number] [place] [address] Dec, [facility] [place] [facility] [address] [id number] [place] [address] Dec, [facility] [place] [facility] [address] [id number] [place] [address] Dec, [facility] [place] [facility] [address] [id number] [place] [address] Dec, [facility] [place] [facility] [address] [id number] [place] [address] Dec, [facility] [place] [facility] [address] [id number] [place] [address] Dec, [facility] [place] [facility] [address] [id number] [place] [address] Oct, [facility] [place] [facility] [address] [id number] [place] [address] Oct, [facility] [place] [facility] [address] [id number] [place] [address] September, [facility] [place] [facility] [address] [id number] [place] [address] September, [facility] [place] [facility] [address] [id number] [place] [address] September, [facility] [place] [facility] [address] [id number] [place] [address] September, [facility] [place] [facility] [address] [id number] [place] [address] September, [facility] [place] [facility] [address] [id number] [place] [address] September, [facility] [place] [facility] [address] [id number] [place] [address]- [address] September, [facility] [place] [facility] [address] [id number] [place] [address] Aug, [facility] [place] [facility] [address] [id number] [place] [address] 15 Aug, 2013 [facility] [place] [facility] [address] [id number] [place] [address] Jul, [facility] [place] [facility] [address] [id number] [place] [address] Jul, [facility] [place] [facility] [address] [facility] [id number] [place] [address] Jul, [facility] [place] [facility] [address] [id number] [place] [address] Jul, [facility] [place] [facility] [address] [id number] [place] [address] Jul, [facility] [place] [facility] [address] [id number] [place] [address] Jul, [facility] [place] [facility] [address] [facility] [id number] [place] [address] Jul, [facility] [place] [facility] [address] [facility] [id number] [place] [address] Jul, [facility] [place] [facility] [address] [facility] [id number] [place] [address] May, [facility] [place] [facility] [address] [facility] [id number] [place] [address] May, [facility] [place] [facility] [address] [facility] [id number] [place] [address] May, [facility] [place] [facility] [address] [facility] [id number] [place] [address] 20[address] May, [facility] [place] [facility] [address] [id number] [place] [address] Apr, [facility] [place] [facility] [address] [facility] [id number] [place] [address] Mar, [facility] [place] [facility] [address] [facility] [id number] [place] [address]- 5678 Mar, [facility] [place] [facility] [address] [id number] [place] [address] 4441 Mar, [facility] [place] [facility] [address] [id number] [place] [address] 6046 Mar, [facility] [place] [facility] [address] [id number] [place] [address] 3867 Mar, [facility] [place] [facility] [address] [id number] [place] [address] 89[address] Mar, [facility] [place] [facility] [address] [id number] [place] [address] 87[address] Mar, [facility] [place] [facility] [address] [id number] [place] [address] 9[address] Mar, [facility] [place] [facility] [address] [id number] [place] [address] Mar, [facility] [place] [facility] [address] [id number] [place] [address] 8620 Mar, [facility] [place] [facility] [address] [id number] [place] [address] 8014 Mar, [facility] [place] [facility] [address] [id number] [place] [address]- 1672 Mar, [facility] [place] [facility] [address] [id number] [place] [address] 15 Feb, 2013 [facility] [place] [facility] [address] [id number] [place] [address] 15 Feb, 2013 [facility] [place] [facility] [address] [id number] [place] [address]605 Feb, [facility] [place] [facility] [address] [id number] [place] [address] 11 Feb, 2013 [facility] [place] [facility] [address] [id number] [place] [address] 07 Feb, 2013 [facility] [place] [facility] [address] [id number] [place] [address] Jan, [facility] [address] [id number] [place] [address] 3878 Dec, [facility] [place] [facility] [address] [id number] [place] [address]- 5888 Dec, [facility] [place] [facility] [address] [id number] [place] [address] 9595 Dec, [facility] [place] [facility] [address] [id number] [place] [address] 5457 Nov, [facility] [place] [facility] [address] [id number] [place] [address] 8216 Nov, [facility] [place] [facility] [address] [id number] [place] [address] 2969 Nov, [facility] [place] [facility] [address] [id number] [place] [address] 6994 Oct, [facility] [place] [facility] [address] [id number] [place] [address] 2930 Oct, [facility] [place] [facility] [address] [id number] [place] [address] 1331 Oct, [facility] [place] [facility] [address] [id number] [place] [address] 36[address] September, [facility] [place] [facility] [address] [id number] [place] [address]- 6739 September, [facility] [place] [facility] [address] [id number] [place] [address] 4910 September, [facility] [place] [facility] [address] [id number] [place] [address]- [address]132 September, [facility] [place] [facility] [address] [id number] [place] [address] 5010 September, [facility] [place] [facility] [address] [id number] [place] [address] 3340 Aug, [facility] [place] [facility] [address] [id number] [place] [address] 75[address] Aug, [facility] [address] [id number] [place] [address] 4899 Aug, [facility] [address] [id number] [place] [address] 2145 Jul, [facility] [place] [facility] [address] [id number] [place] [address]107 Jul, [facility] [address] [id number] [place] [address] 2544 Jul, [facility] [address] [id number] [place] [address]- [address]593 Jul, [facility] [address] [id number] [place] [address] 2042 Jul, [facility] [place] [facility] [address] [id number] [place] [address]- 2866 Jul, [facility] [place] [facility] [address] [id number] [place] [address] 7329 Jul, [facility] [address] [id number] [place] [address] 5077 May, [facility] [place] [facility] [address] [id number] [place] [address] 8112 May, [facility] [place] [facility] [address] [id number] [place] [address]- 5549 May, [facility] [address] [id number] [place] [address] 1565 Apr, [facility] [address] [id number] [place] [address] 8454 Apr, [facility] [address] [id number] [place] [address]- 2546 Apr, [facility] [address] [id number] [place] [address]- 2822 Apr, [facility] [place] [facility] [address] [id number] [place] [address]- 0087 Apr, [facility] [place] [facility] [address] [id number] [place] [address]- 4956 Mar, [facility] [place] [facility] [address] [id number] [place] [address]- 6386 Mar, [facility] [place] [facility] [address] [id number] [place] [address]- 5636 Mar, [facility] [place] [facility] [address] [id number] [place] [address]- 0338 Mar, [facility] [place] [facility] [address] [id number] [place] [address]- 4176 Feb, [facility] [place] [facility] [address] [id number] [place] [address]- 6066 Feb, [facility] [place] [facility] [address] [id number], [place] [address] 118[address] Feb, [facility] [place] [facility] [address] [id number] [place] [address]- 3433 Feb, [facility] [place] [facility] [address] [facility] [id number], [place] [address]- [address]298 Feb, [facility] [place] [facility] [address] [id number], [place] [address]- 3816 Jan, [facility] [place] [facility] [address] [id number], [place] [address]- [address] Dec, [facility] [place] [facility] [address] [id number], [place] [address]- 6166 Dec, [facility] [place] [facility] [address] [id number], [place] [address]- 2466 Dec, [facility] [place] [facility] [address] [facility] [id number], [place] [address]- 4686 Nov, [facility] [place] [facility] [address] [id number], [place] [address]- 4365 Nov, [facility] [address] [id number] [place] [address]- 6481 Nov, [facility] [place] [facility] [address] [id number] [place] [address]- 4234 Oct, [facility] [place] [facility] [address] [id number] [place] [address]- 6179 Oct, [facility] [place] [facility] [address] [id number] [place] [address]- 3513 Oct, [facility] [place] [facility] [address] [id number] [place] [address]- 5922 Oct, [facility] [place] [facility] [address] [id number] [place] [address]- 1347 September, [facility] [address] [id number] [place] [address]- 5848 September, [facility] [place] [facility] [address] [id number] [place] [address]- 4076 Aug, [facility] [place] [facility] [address] [id number] [place] [address]- 7583 Aug, [facility] [place] [facility] [address] [id number] [place] [address]108 Aug, [facility] [place] [facility] [address] [id number] [place] [address]- 9189 Aug, [facility] [place] [facility] [address] [id number] [place] [address]- 8393 Aug, [facility] [place] [facility] [address] [id number] [place] [address]- 1671 Aug, [facility] [place] [facility] [address] [id number] [place] [address]- 7315 Aug, [facility] [place] [facility] [address] [facility] [id number] [place] [address]- 3697 Jul, [facility] [place] [facility] [address] [id number] [place] [address]- 8888 Jul, [facility] [place] [facility] [address] [id number] [place] [address]- 6096 14 Jul, 2011 [facility] [place] [facility] [address] [id number] [place] [address]- 5011 May, [facility] [place] [facility] [address] [id number] [place] [address]- 9181 May, [facility] [place] [facility] [address] [id number] [place] [address]- 4429 May, [facility] [place] [facility] [address] [id number] [place] [address]- 1307 Apr, [facility] [place] [facility] [address] [id number] [place] [address]- 3554 Apr, [facility] [place] [facility] [address] [id number] [place] [address]- 2364 Mar, [facility] [place] [facility] [address] [id number] [place] [address]- 8307 Mar, [facility] [place] [facility] [address] [id number] [place] [address]- 6639 Mar, [facility] [place] [facility] [address] [id number] [place] [address]- 1562 Mar, [facility] [place] [facility] [address] [id number] [place] [address]- 5756 Mar, [facility] [place] [facility] [address] [id number] [place] [address]- 2748 Mar, [facility] [place] [facility] [address] [id number] [place] [address]- 8183 21 Feb, 2011 [facility] [place] [facility] [address] [id number] [place] [address]- 8107 14 Feb, 2011 [facility] [place] [facility] [address] [id number] [place] [address]- 7877 14 Feb, 2011 IMMUNIZATIONS No Known Immunizations SOCIAL HISTORY Never Assessed REASON FOR VISIT Controlled Med Refill 04/01 PLAN OF CARE VITAL SIGNS MEDICATIONS Medication Instructions Dosage Frequency Start Date End Date Duration Status Lyrica 225 mg Orally Twice a day 1 capsule 12h 30 Active MS Contin 15 MG Orally every 8 hours 1 tablet 8h Mar, 28 days Active Soma 350 mg Orally Once a day 1 tablet as needed 24h 28 days Active Xanax 2 MG Orally 4 times a day PRN 1/2 tablet May, 28 days Active Hydrocodone-Acetaminophen 10-325 MG Orally every 6 hrs 1 tablet as needed 6h Mar, 28 days Active RESULTS No Results PROCEDURES [...]
--- OUTSIDE RECORDS SUMMARY | 2018-05-16 06:51 | XMS REPORT ---
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 Role Phone FERNY SILVERIO Unavailable PROBLEMS Type Condition ICD9-CM Code ARB94-MI Code Onset Dates Condition Status SNOMED Code Problem Hypoxia R09.02 Active 560708262 Problem Port catheter in place Z95.828 Active 086075866 Problem Anxiety F41.9 Active 27669818 Problem Type 2 diabetes mellitus with diabetic peripheral angiopathy without gangrene E11.51 Active 399105040 Problem Pressure ulcer of other site, stage 3 L89.893 Active 837083040 Problem Lumbar radiculopathy, chronic M54.16 Active 916482379 Problem PAD (peripheral artery disease) I73.9 Active 003392138 Problem 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 Active 692571411 Problem Recurrent major depressive disorder, in full remission F33.42 Active 596233687 Problem Diabetes E11.9 Active 10439152 Problem Hypertension I10 Active 70268568 Problem Back pain M54.9 Active 760031443 Problem Insulin long-term use Z79.4 Active 121613192 Problem COPD (chronic obstructive pulmonary disease) J44.9 Active 56282748 ALLERGIES No Information ENCOUNTERS Encounter Location Date Diagnosis [facility] [place] [id number] [place] [address] 00496- 7363 Feb, Back pain M54.9 and Anxiety F41.9 [facility] [place] [id number] [place] [address] 36071- 3808 Jan, Back pain M54.9 and Anxiety F41.9 [facility] [place] [id number] [place] [address] 98421- 7183 Jan, [facility] [place] [id number] [place] [address] 64762- 5862 Dec, [facility] [place] [id number] [place] [address] 13192- 6540 Dec, Back pain M54.9 and Anxiety F41.9 [facility] [place] [id number] [place] [address] 20716- 0677 Dec, Diabetes E11.9 ; Type 2 diabetes mellitus with diabetic peripheral angiopathy without gangrene E11.51 ; Lumbar radiculopathy, chronic M54.16 ; COPD (chronic obstructive pulmonary disease) J44.9 and Anxiety F41.9 [facility] [place] [id number] [place] [address] 77747- 0119 Dec, Back pain M54.9 and Anxiety F41.9 [facility] [place] [id number] [place] [address] 34309- 8392 Nov, Back pain M54.9 and Anxiety F41.9 [facility] [place] [id number] [place] [address] 96645- 9184 Oct, [facility] [place] [address] 99227- 1341 Oct, Back pain M54.9 and Anxiety F41.9 [facility] [place] [id number] [place] [address] 18779- 7997 September, Anxiety F41.9 and Back pain M54.9 [facility] [place] [id number] [place] [address] 24708- 5407 September, Diabetes E11.9 ; Hypertension I10 ; COPD (chronic obstructive pulmonary disease) J44.9 and Lumbar radiculopathy, chronic M54.16 [facility] [place] [id number] [place] [address] 05219- 3187 September, Anxiety F41.9 [facility] [place] [id number] [place] [address] 41481- 7459 Aug, [facility] [place] [id number] [place] [address] 91367- 5858 Aug, [facility] [place] [id number] [place] [address] 77552- 5078 Aug, Anxiety F41.9 and Back pain M54.9 [facility] [place] [id number] [place] [address] 25457- 0381 Aug, Medicare annual wellness visit, initial Z00.00 ; COPD ( chronic obstructive pulmonary disease) J44.9 ; PAD (peripheral artery disease) I73.9 ; Insulin long-term use Z79.4 ; Hypertension I10 ; Anxiety F41.9 ; Recurrent major depressive disorder, in full remission F33.42 ; Pressure ulcer of other site, stage 3 L89.893 ; Type 2 diabetes mellitus with diabetic peripheral angiopathy without gangrene E11.51 and 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.4 [facility] [id number] [place] [address] 98655- 6595 Jul, Back pain M54.9 [facility] [id number] [place] [address] 10755- 5250 Jul, [facility] [id number] [place] [address] 93670- 2910 Jul, Anxiety F41.9 and Back pain M54.9 [facility] [id number] [place] [address] 58184- 3005 Jul, Diabetes E11.9 [facility] [id number] [place] [address] 72534- 0226 May, [facility] [id number] [place] [address] 08302- 1283 May, Diabetes E11.9 ; Anxiety F41.9 ; Back pain M54.9 and COPD ( chronic obstructive pulmonary disease) J44.9 [facility] [place] [id number] [place] [address] 85517- 6629 May, Back pain M54.9 [facility] [place] [id number] [place] [address] 29250- 4580 May, [facility] [place] [id number] [place] [address] 48709- 9284 Apr, Back pain M54.9 [facility] [place] [id number] [place] [address] 69375- 5930 Mar, Back pain M54.9 [facility] [place] [id number] [place] [address] 57716- 0305 Mar, [facility] [place] [id number] [place] [address] 79675- 7753 Mar, [facility] [place] [id number] [place] [address] 47777- 4251 14 Mar, 2017 Radiculopathy of lumbar region M54.16 [facility] [place] [id number] [place] [address] 03144- 5007 Mar, [facility] [place] [address] 88264- 4720 07 Mar, 2017 Encounter for immunization Z23 and Lumbar radiculopathy, chronic M54.16 [facility] [place] [id number] [place] [address] 45516- 6089 Mar, Back pain M54.9 and Anxiety F41.9 [facility] [id number] [place] [address] 70570 -0156 10 Feb, 2017 Acute bilateral low back pain with left-sided sciatica M54.42 and Acute bilateral low back pain with right-sided sciatica M54.41 [facility] [place] [id number] [place] [address] 50287- 8182 Feb, [facility] [place] [id number] [place] [address] 27963- 3924 Feb, Back pain M54.9 [facility] [place] [id number] [place] [address] 70812- 7519 05 Jan, 2017 Back pain M54.9 and Anxiety F41.9 [facility] [place] [id number] [place] [address] 73812- 2941 05 Jan, 2017 Diabetes E11.9 [facility] [place] [id number] [place] [address] 90239- 0472 Dec, Diabetes E11.9 ; Back pain M54.9 ; Anxiety F41.9 and Insulin long-term use Z79.4 [facility] [place] [id number] [place] [address] 45006- 0208 Dec, Anxiety F41.9 [facility] [place] [id number] [place] [address] 10328- 7268 Dec, Back pain M54.9 [facility] [place] [id number] [place] [address] 69175- 9454 Nov, Back pain M54.9 [facility] [place] [id number] [place] [address] 07460- 5158 Oct, Back pain M54.9 and Anxiety F41.9 [facility] [place] [id number] [place] [address] 79622- 4318 September, Back pain M54.9 [facility] [place] [id number] [place] [address] 85725- 0765 September, Back pain M54.9 and Anxiety F41.9 [facility] [place] [id number] [place] [address] 58415- 1769 Aug, Diabetes E11.9 ; Anxiety F41.9 ; Back pain M54.9 and PAD ( peripheral artery disease) I73.9 [facility] [place] [id number] [place] [address] 27683- 9367 Aug, Anxiety F41.9 [facility] [place] [id number] [place] [address] 60423- 2476 Aug, Back pain M54.9 [facility] [place] [id number] [place] [address] 90257- 1841 Jul, Back pain M54.9 [facility] [place] [id number] [place] [address] 75667- 2150 Jul, Back pain M54.9 [facility] [place] [id number] [place] [address] 89982- 7343 Jul, Back pain M54.9 [facility] [place] [id number] [place] [address] 64550- 2227 Jul, Dorsalgia M54.9 [facility] [place] [address] 75567- 9669 Jul, [facility] [place] [address] 11168- 0844 May, Back pain M54.9 [facility] [place] [id number] [place] [address] 44695- 1695 May, Diabetes E11.9 ; Anxiety F41.9 ; Port catheter in place Z95.828 ; Encounter for immunization Z23 and Insulin long-term use Z79.4 [facility] [place] [id number] [place] [address] 41226- 6068 Apr, Back pain M54.9 [facility] [place] [id number] [place] [address] 46779- 5763 Apr, Back pain M54.9 [facility] [place] [id number] [place] [address] 61635- 0478 Apr, [facility] [place] [id number] [place] [address] 74981- 4629 Apr, Back pain M54.9 [facility] [place] [address] 48277- 0982 Mar, COPD (chronic obstructive pulmonary disease) J44.9 [facility] [place] [id number] [place] [address] 67163- 1541 Feb, [facility] [place] [address] 23308- 5727 30 Jan, 2016 [facility] [place] [address] [facility] [id number] [address]- 5986 20 Jan, 2016 [facility] [place] [id number] [place] [address] 57915- 9911 07 Jan, 2016 [facility] [place] [id number] [place] [address] 86189- 4655 Jan, [facility] [place] [id number] [place] [address] 25027- 2974 Dec, Diabetes E11.9 ; Hypoxia R09.02 and Back pain M54.9 [facility] [place] [id number] [place] [address] 04146- 6595 Dec, [facility] [place] [id number] [place] [address] 64677- 1140 Nov, [facility] [place] [id number] [place] [address] 92411- 0206 Oct, Anxiety F41.9 [facility] [place] [id number] [place] [address] 62013- 6726 Oct, Back pain M54.9 [facility] [place] [id number] [place] [address] 75588- 0418 September, Back pain M54.9 [facility] [place] [address] [place] [address] 88391- 1077 September, Diabetes E11.9 [facility] [place] [address] [facility] [id number] [place] [address]- 2637 September, [facility] [place] [id number] [place] [address] 66301- 7282 September, Diabetes E11.9 ; Insulin long-term use Z79.4 and Back pain M54.9 [facility] [place] [address] [place] [address]- 4568 Aug, Back pain M54.9 [facility] [place] [id number] [place] [address] 81103- 7855 Aug, Back pain M54.9 ; Anxiety F41.9 and Arthropathy, unspecified M12.9 [place] [facility] [address] 61105- 8803 Jul, Back pain M54.9 [place] [address] 24631- 0504 Jul, Anxiety F41.9 [place] [address] 96404- 5234 Jul, Back pain M54.9 [place] [address] 02795- 2079 Jul, [place] [address] 67976- 2584 Jul, [place] [address] 91358- 8485 May, Back pain M54.9 ; Diabetes E11.9 ; Insulin long-term use Z79.4 ; COPD (chronic obstructive pulmonary disease) J44.9 and Hypertension I10 [place] [address] 02392- 8836 May, Chronic pain G89.29 [facility] [id number] [place] [address] 50821- 1874 Apr, [place] [address] 58033- 8807 Apr, [place] [address] 49715- 7616 Mar, [place] [address] 32601- 1098 Mar, Encounter for immunization Z23 and Diabetes E11.9 [place] [address] 16753- 0698 Feb, [facility] [place] [address] [id number] [place] [address]- 2627 Feb, [facility] [place] [address] [id number] [place] [address]- 8866 Jan, [facility] [place] [address] [facility] [id number] [place] [address]- 4256 Jan, [facility] [place] [address] [facility] [id number] [place] [address]- 3602 Dec, [facility] [place] [address] [facility] [id number] [place] [address]- 8018 Dec, [facility] [place] [address] [facility] [id number] [place] 4795 Dec, Unspecified arthropathy, site unspecified 716.90 and Diabetes mellitus type 2, uncontrolled 250.02 [facility] [place] [id number] [place] [address]- 4966 Dec, [facility] [place] [address] [facility] [id number] [place] [address]- 2490 Nov, [facility] [place] [id number] [place] [address]- 4156 Oct, [facility] [place] [id number] [place] [address]- 7277 September, [facility] [place] [address] [id number] [place] [address]- 1496 September, [facility] [place] [address] [id number] [place] [address]- 9026 September, [facility] [place] [address] [facility] [id number] [place] [address]- 4266 September, [facility] [place] [address] [facility] [id number] [place] [address]- 6076 Aug, [facility] [place] [address] [facility] [id number] [place] [address]- 6972 Aug, [facility] [place] [facility] [address] [id number] [place] [address]- 3415 18 Jul, 2014 [facility] [place] [facility] [address] [id number] [place] [address]- 8524 18 Jul, 2014 [facility] [place] [facility] [address] [id number] [place] [address]- 4497 16 Jul, 2014 [facility] [place] [facility] [address] [id number] [place] [address]- 0048 16 Jul, 2014 [facility] [place] [facility] [address] [id number] [place] [address]- 5985 16 Jul, 2014 [facility] [place] [facility] [address] [id number] [place] [address]- 3139 16 Jul, 2014 [facility] [place] [facility] [address] [id number] [place] [address]- 8164 16 Jul, 2014 [facility] [place] [facility] [address] [id number] [place] [address]- 2209 16 Jul, 2014 [facility] [place] [facility] [address] [id number] [place] [address]- 8677 16 Jul, 2014 [facility] [place] [facility] [address] [id number] [place] [address]- 3241 13 Jul, 2014 [facility] [place] [facility] [address] [id number] [place] [address]- 2703 13 Jul, 2014 [facility] [place] [facility] [address] [id number] [place] [address]- 1922 09 Jul, 2014 [facility] [place] [facility] [address] [id number] [place] [address]- 3229 09 Jul, 2014 [facility] [place] [facility] [address] [id number] [place] [address]- 9475 17 Jul, 2014 [facility] [place] [facility] [address] [id number] [place] [address]- 8672 17 Jul, 2014 [facility] [place] [facility] [address] [id number] [place] [address]- 1289 16 Jul, 2014 [facility] [place] [facility] [address] [id number] [place] [address]- 3077 16 Jul, 2014 [facility] [place] [facility] [address] [id number] [place] [address]- 4896 16 Jul, 2014 [facility] [place] [facility] [address] [id number] [place] [address] 16 Jul, 2014 [facility] [place] [facility] [address] [id number] [place] [address] 16 Jul, 2014 [facility] [place] [facility] [address] [id number] [place] [address] Jul, 2014 [facility] [place] [facility] [address] [facility] [id number] [place] [address] 16 Jul, 2014 [facility] [place] [facility] [address] [id number] [place] [address] 16 Jul, 2014 [facility] [place] [facility] [address] [id number] [place] [address] 16 Jul, 2014 [facility] [place] [facility] [address] [facility] [id number] [place] [address] 16 Jul, 2014 [facility] [place] [facility] [address] [facility] [id number] [place] [address] 16 Jul, 2014 [facility] [place] [facility] [address] [facility] [id number] [place] [address] Jul, 2014 [facility] [place] [facility] [address] [facility] [id number] [place] [address] 16 Jul, 2014 [facility] [place] [facility] [address] [id number] [place] [address] Jul, 2014 [facility] [place] [facility] [address] [facility] [id number] [place] [address] May, [facility] [place] [facility] [address] [facility] [id number] [place] [address] May, [facility] [place] [facility] [address] [id number] [place] [address] May, [facility] [place] [facility] [address] [id number] [place] [address] May, [facility] [place] [facility] [address] [id number] [place] [address] May, [facility] [place] [facility] [address] [id number] [place] [address] May, [facility] [place] [facility] [address] [id number] [place] [address] May, [facility] [place] [facility] [address] [id number] [place] [address] May, [facility] [place] [facility] [address] [id number] [place] [address] May, [facility] [place] [facility] [address] [id number] [place] [address] May, [facility] [place] [facility] [address] [id number] [place] [address]- [address] Apr, [facility] [place] [facility] [address] [id number] [place] [address] Apr, [facility] [place] [facility] [address] [id number] [place] [address] Apr, [facility] [place] [facility] [address] [id number] [place] [address] Apr, [facility] [place] [facility] [address] [id number] [place] [address] Apr, [facility] [place] [facility] [address] [id number] [place] [address] Apr, [facility] [place] [facility] [address] [id number] [place] [address] Mar, [facility] [place] [facility] [address] [id number] [place] [address] Mar, [facility] [place] [facility] [address] [id number] [place] [address] Mar, [facility] [place] [facility] [address] [id number] [place] [address] Mar, [facility] [place] [facility] [address] [id number] [place] [address] Mar, [facility] [place] [facility] [address] [id number] [place] [address] Mar, [facility] [place] [facility] [address] [id number] [place] [address] Mar, [facility] [place] [facility] [address] [id number] [place] [address] Mar, [facility] [place] [facility] [address] [id number] [place] [address] Mar, [facility] [place] [facility] [address] [id number] [place] [address] Mar, [facility] [place] [facility] [address] [id number] [place] [address] Mar, [facility] [place] [facility] [address] [id number] [place] [address] 1961 Feb, [facility] [place] [facility] [address] [id number] [place] [address] 30 Feb, 2014 [facility] [place] [facility] [address] [id number] [place] [address]99 Feb, [facility] [place] [facility] [address] [id number] [place] [address] 9[address] Feb, [facility] [place] [facility] [address] [id number] [place] [address] 7703 Feb, [facility] [place] [facility] [address] [id number] [place] [address] 9654 Feb, [facility] [place] [facility] [address] [id number] [place] [address]- 4573 Feb, [facility] [place] [facility] [address] [id number] [place] [address]- 0339 Feb, [facility] [place] [facility] [address] [id number] [place] [address]- 6357 Feb, [facility] [place] [facility] [address] [id number] [place] [address]- 5877 Feb, [facility] [place] [facility] [address] [id number] [place] [address]- [address] Jan, [facility] [place] [facility] [address] [id number] [place] [address]- 9576 Jan, [facility] [place] [facility] [address] [id number] [place] [address]- 3025 16 Jan, 2014 [facility] [place] [facility] [address] [id number] [place] [address] 2415 16 Jan, 2014 [facility] [place] [facility] [address] [id number] [place] [address]- 7404 Jan, [facility] [place] [facility] [address] [id number] [place] [address]- 7385 Jan, [facility] [place] [facility] [address] [id number] [place] [address]- 3493 Jan, [facility] [place] [facility] [address] [id number] [address] Dec, [facility] [place] [facility] [address] [id number] [place] [address]- 0576 Dec, [facility] [place] [facility] [address] [id number] [place] [address]- 3317 Dec, [facility] [place] [facility] [address] [id number] [place] [address]- 1225 Dec, [facility] [place] [facility] [address] [id number] [place] [address]- 7442 Dec, [facility] [place] [facility] [address] [id number] [place] [address]- 3614 Dec, [facility] [place] [facility] [address] [id number] [place] [address]- 4748 Dec, [facility] [place] [facility] [address] [id number] [place] [address]- 3435 Dec, [facility] [place] [facility] [address] [id number] [place] [address]- 2333 Oct, [facility] [place] [facility] [address] [id number] [place] [address] 8399 Oct, [facility] [place] [facility] [address] [id number] [place] [address]- 8036 September, [facility] [place] [facility] [address] [id number] [place] [address]- 3618 September, [facility] [place] [facility] [address] [id number] [place] [address]- 3551 September, [facility] [place] [facility] [address] [id number] [place] [address]- 5081 September, [facility] [place] [facility] [address] [id number] [place] [address]- 2572 September, [facility] [place] [facility] [address] [id number] [place] [address]- 3070 September, [facility] [place] [facility] [address] [id number] [place] [address]- 3888 September, [facility] [place] [facility] [address] [id number] [place] [address]- 7037 Aug, [facility] [place] [facility] [address] [id number] [place] [address]- 0067 Aug, [facility] [place] [facility] [address] [id number] [place] [address]- 0326 Jul, [facility] [place] [facility] [address] [id number] [place] [address]- 9423 24 Jul, 2013 [facility] [place] [facility] [address] [id number] [place] [address]- 6746 Jul, [facility] [place] [facility] [address] [id number] [place] [address]- 6366 Jul, [facility] [place] [facility] [address] [id number] [place] [address]- 3424 Jul, [facility] [place] [facility] [address] [id number] [place] [address]- 4426 Jul, [facility] [place] [facility] [address] [id number] [place] [address]- 8775 Jul, [facility] [place] [facility] [address] [id number] [place] [address]- 4521 Jul, [facility] [place] [facility] [address] [id number] [place] [address]- 7165 15 May, 2013 [facility] [place] [facility] [address] [id number] [place] [address]- 5370 May, [facility] [place] [facility] [address] [id number] [place] [address]- 4492 May, [facility] [place] [facility] [address] [id number] [place] [address]- 1069 May, [facility] [place] [facility] [address] [id number] [place] [address]- 6466 Apr, [facility] [place] [facility] [address] [id number] [place] [address]- 1065 Mar, [facility] [place] [facility] [address] [id number] [place] [address]- 8890 Mar, [facility] [place] [facility] [address] [id number] [place] [address]- 9161 Mar, [facility] [place] [facility] [address] [id number] [place] [address]- 5757 Mar, [facility] [place] [facility] [address] [id number] [place] [address]- 3088 Mar, [facility] [place] [facility] [address] [id number] [place] [address]- 4686 Mar, [facility] [place] [facility] [address] [id number] [place] [address]- 2335 Mar, [facility] [place] [facility] [address] [id number] [place] [address]- 4131 Mar, [facility] [place] [facility] [address] [id number] [place] [address]- 0495 Mar, [facility] [place] [facility] [address] [id number] [place] [address]- 3275 Mar, [facility] [place] [facility] [address] [id number] [place] [address]- 9027 Mar, [facility] [place] [facility] [address] [id number] [place] [address]- 0515 Mar, [facility] [place] [facility] [address] [id number] [place] [address]- 6692 Feb, [facility] [place] [facility] [address] [facility] [id number] [place] [address]- 2811 Feb, [facility] [place] [facility] [address] [id number] [place] [address]- 5995 Feb, [facility] [place] [facility] [address] [id number] [place] [address] 0269 Feb, [facility] [place] [facility] [address] [id number] [place] [address]- 1034 Feb, [facility] [place] [facility] [address] [id number] [place] [address]- 9714 Jan, [facility] [place] [facility] [address] [id number] [place] [address]- 1229 Dec, [facility] [place] [facility] [address] [id number] [place] [address]- 0531 Dec, [facility] [address] [id number] [place] [address]- 1351 Dec, [facility] [address] [id number] [place] [address]- 1777 Nov, [facility] [address] [id number] [place] [address]- 7111 Nov, [facility] [address] [id number] [place] [address]- 7382 Nov, [facility] [address] [id number] [place] [address]- 2409 Oct, [facility] [address] [id number] [place] [address]- 6941 Oct, [facility] [address] [id number] [place] [address]- 0914 Oct, [facility] [address] [id number] [place] [address]- 5498 September, [facility] [address] [id number] [place] [address]- 5214 September, [facility] [address] [id number] [place] [address]- 3464 September, [facility] [address] [id number] [place] [address]- 5348 September, [facility] [address] [id number] [place] [address]- [address] September, [facility] [place] [facility] [address] [id number] [place] [address]- 3579 Aug, [facility] [place] [facility] [address] [id number] [place] [address]- 9264 Aug, [facility] [place] [facility] [address] [id number] [place] [address]- 3277 Aug, [facility] [address] [id number] [place] [address]- 8781 Jul, [facility] [address] [id number] [place] [address]- 0996 Jul, [facility] [address] [id number] [place] [address]- 8465 Jul, [facility] [address] [id number] [place] [address]- 9555 Jul, [facility] [address] [id number] [place] [address]- 1316 Jul, [facility] [address] [id number] [place] [address]- 6917 Jul, [facility] [address] [id number] [place] [address]- 7333 Jul, [facility] [address] [id number] [place] [address]- 3895 May, [facility] [address] [id number] [place] [address]- 5369 May, [facility] [address] [id number] [place] [address]- 3230 May, [facility] [address] [id number] [place] [address]- 4173 Apr, [facility] [place] [facility] [address] [id number] [place] [address]- 2580 Apr, [facility] [place] [facility] [address] [id number] [place] [address]- 7691 Apr, [facility] [place] [facility] [address] [id number] [place] [address]- 3310 Apr, [facility] [place] [facility] [address] [id number] [place] [address]- 2546 Apr, [facility] [address] [id number] [place] [address] 2542 Mar, [facility] [place] [facility] [address] [id number] [place] [address]- 6500 Mar, [facility] [place] [facility] [address] [id number] [place] [address] 2546 Mar, [facility] [place] [facility] [address] [id number] [place] [address] 2546 Mar, [facility] [place] [facility] [address] [id number] [place] [address]- 3081 Feb, [facility] [place] [facility] [address] [id number] [place] [address]- 3586 Feb, [facility] [place] [facility] [address] [id number] [place] [address]- 3106 Feb, [facility] [place] [facility] [address] [id number] [place] [address]- 5056 Feb, [facility] [place] [facility] [address] [id number] [place] [address]- 6603 Feb, [facility] [place] [facility] [address] [id number] [place] [address]- 5296 Jan, [facility] [place] [facility] [address] [id number] [place] [address]- 6993 Dec, [facility] [place] [facility] [address] [id number] [place] [address]- 2546 Dec, [facility] [place] [facility] [address] [id number] [place] [address]- 2546 Dec, [facility] [place] [facility] [address] [id number] [place] [address]- 2546 Nov, [facility] [place] [facility] [address] [id number] [place] [address]- 2546 Nov, [facility] [place] [facility] [address] [id number] [place] [address]- 1217 Nov, [facility] [place] [facility] [address] [id number] [place] [address]- 4869 Oct, [facility] [place] [facility] [address] [id number] [place] [address]- 5540 Oct, [facility] [place] [facility] [address] [id number] [place] [address]- 8416 Oct, [facility] [place] [facility] [address] [id number] [place] [address]- 5971 Oct, [facility] [place] [facility] [address] [id number] [place] [address]- 8522 September, [facility] [place] [facility] [address] [id number] [place] [address]- 1542 September, [facility] [place] [facility] [address] [id number] [place] [address]- 4383 Aug, [facility] [place] [facility] [address] [id number] [place] [address]- 0518 Aug, [facility] [place] [facility] [address] [id number] [place] [address]- 5441 Aug, [facility] [place] [facility] [address] [id number] [place] [address]- 4968 Aug, [facility] [place] [facility] [address] [id number] [place] [address]- 7207 Aug, [facility] [place] [facility] [address] [id number] [place] [address]- 8334 Aug, [facility] [place] [facility] [address] [id number] [place] [address]- 4450 Aug, [facility] [place] [facility] [address] [id number] [place] [address]- 9435 Jul, [facility] [place] [facility] [address] [id number] [place] [address]- 5443 Jul, [facility] [place] [facility] [address] [id number] [place] [address]- 6069 14 Jul, 2011 [facility] [place] [id number] [address]- 8425 May, [facility] [place] [id number] [address]- 8527 May, [facility] [place] [id number] [address]- 0309 May, [facility] [place] [id number] [address] Apr, [facility] [place] [id number] [place] [address]- 8274 Apr, [facility] [place] [id number] [address]- 3254 Mar, [facility] [place] [id number] [place] [address]- 9275 Mar, [facility] [place] [id number] [address]- 3102 Mar, [facility] [place] [id number] [address]- 7269 Mar, [facility] [place] [id number] [address]- 0544 Mar, [facility] [place] [id number] [address]- 7880 Mar, [facility] [place] [id number] [address]- 1228 Feb, [facility] [place] [id number] [address]- 5538 Feb, [facility] [place] [id number] [address]- 4290 Feb, IMMUNIZATIONS No Known Immunizations SOCIAL HISTORY Never Assessed REASON FOR VISIT Controlled Med Refill 03/04 PLAN OF CARE VITAL SIGNS MEDICATIONS Medication Instructions Dosage Frequency Start Date End Date Duration Status Lyrica 225 mg Orally Twice a day 1 capsule 12h 30 Active MS Contin 15 MG Orally every 8 hours 1 tablet 8h Feb, 28 days Active Soma 350 mg Orally Once a day 1 tablet as needed 24h Active Hydrocodone-Acetaminophen 10-325 MG Orally every 6 hrs 1 tablet as needed 6h Feb, 28 days Active Xanax 2 MG Orally [...]
--- OUTSIDE RECORDS SUMMARY | 2018-05-16 06:52 | XMS REPORT ---
Author Author MIGUELANGEL JONES Organization [facility] Address [address] [place] [address] Care Team Providers Care Brewery Pumper Name Role Phone MIGUELANGEL JONES Unavailable PROBLEMS Type Condition ICD9-CM Code WMH94-VU Code Onset Dates Condition Status SNOMED Code Problem Hypoxia R09.02 Active 829794485 Problem Port catheter in place Z95.828 Active 275524640 Problem Anxiety F41.9 Active 82275564 Problem Type 2 diabetes mellitus with diabetic peripheral angiopathy without gangrene E11.51 Active 166189354 Problem Pressure ulcer of other site, stage 3 L89.893 Active 862611459 Problem Lumbar radiculopathy, chronic M54.16 Active 273519351 Problem PAD (peripheral artery disease) I73.9 Active 122174698 Problem [facility] current use of insulin Z79.4 Active 219487626 Problem Recurrent major depressive disorder, in full remission F33.42 Active 316675629 Problem Diabetes E11.9 Active 52180780 Problem Hypertension I10 Active 80892142 Problem Back pain M54.9 Active 018849090 Problem Insulin long-term use Z79.4 Active 943385579 Problem COPD (chronic obstructive pulmonary disease) J44.9 Active 76126407 ALLERGIES No Information ENCOUNTERS Encounter Location Date Diagnosis [facility] [id number] [place] [address] 89489- 6430 Jan, Back pain M54.9 and Anxiety F41.9 [facility] [id number] [place] [address] 48700- 3249 Jan, [facility] [id number] [place] [address] 66100- 2417 Dec, [facility] [address] [address] 5357 Dec, Back pain M54.9 and Anxiety F41.9 [facility] [id number] [place] [address] 97364- 7070 Dec, Diabetes E11.9 ; Type 2 diabetes mellitus with diabetic peripheral angiopathy without gangrene E11.51 ; Lumbar radiculopathy, chronic M54.16 ; COPD (chronic obstructive pulmonary disease) J44.9 and Anxiety F41.9 [facility] [id number] [place] [address] 37828- 1309 Dec, Back pain M54.9 and Anxiety F41.9 [place] [id number] [place] [address] 04550- 9949 Nov, Back pain M54.9 and Anxiety F41.9 [place] [id number] [place] [address] 54939- 3933 Oct, [facility] [address] 28757- 4226 Oct, Back pain M54.9 and Anxiety F41.9 [place] [id number] [place] [address] 60465- 6853 September, Anxiety F41.9 and Back pain M54.9 [place] [id number] [place] [address] 82577- 1606 September, Diabetes E11.9 ; Hypertension I10 ; COPD (chronic obstructive pulmonary disease) J44.9 and Lumbar radiculopathy, chronic M54.16 [facility] [id number] [place] [address] 65554- 6783 September, Anxiety F41.9 [facility] [id number] [place] [address] 18407- 9464 Aug, [facility] [id number] [place] [address] 64515- 5412 Aug, [facility] [id number] [place] [address] 68460- 6805 Aug, Anxiety F41.9 and Back pain M54.9 [facility] [id number] [place] [address] 70005- 6890 Aug, Medicare annual wellness visit, initial Z00.00 ; COPD ( chronic obstructive pulmonary disease) J44.9 ; PAD (peripheral artery disease) I73.9 ; Insulin long-term use Z79.4 ; Hypertension I10 ; Anxiety F41.9 ; Recurrent major depressive disorder, in full remission F33.42 ; Pressure ulcer of other site, stage 3 L89.893 ; Type 2 diabetes mellitus with diabetic peripheral angiopathy without gangrene E11.51 and [facility] current use of insulin Z79.4 [place] [id number] [place] [address] 40091- 1655 Jul, Back pain M54.9 [facility] [id number] [place] [address] 91787- 5590 Jul, [facility] [address] 32750- 5972 Jul, Anxiety F41.9 and Back pain M54.9 [facility] [id number] [place] [address] 97972- 0433 Jul, Diabetes E11.9 [facility] [id number] [place] [address] 60869- 5254 May, [facility] [id number] [place] [address] 22103- 1405 May, Diabetes E11.9 ; Anxiety F41.9 ; Back pain M54.9 and COPD ( chronic obstructive pulmonary disease) J44.9 [facility] [id number] [place] [address] 30646- 0827 May, Back pain M54.9 [facility] [id number] [place] [address] 06315- 6706 May, [facility] [id number] [place] [address] 57188- 4479 Apr, Back pain M54.9 [facility] [id number] [place] [address] 72733- 0579 30 Mar, 2017 Back pain M54.9 [facility] [id number] [place] [address] 31564- 9125 20 Mar, 2017 [facility] [id number] [place] [address] 01560- 4781 16 Mar, 2017 [facility] [address] 28760- 3141 14 Mar, 2017 Radiculopathy of lumbar region M54.16 [facility] [address] 24027- 1684 13 Mar, 2017 [facility] [id number] [place] [address] 41793- 8994 07 Mar, 2017 Encounter for immunization Z23 and Lumbar radiculopathy, chronic M54.16 [facility] [id number] [place] [address] 22118- 8922 Mar, Back pain M54.9 and Anxiety F41.9 [facility] [id number] [place] [address] 89750 -7506 10 Feb, 2017 Acute bilateral low back pain with left-sided sciatica M54.42 and Acute bilateral low back pain with right-sided sciatica M54.41 [facility] [id number] [place] [address] 48545- 2215 Feb, [facility] [id number] [place] [address] 73862- 3864 Feb, Back pain M54.9 [facility] [id number] [place] [address] 59553- 9882 05 Jan, 2017 Back pain M54.9 and Anxiety F41.9 [facility] [id number] [place] [address] 42892- 1924 05 Jan, 2017 Diabetes E11.9 [facility] [address] [place] [address]- 6094 14 Dec, 2016 Diabetes E11.9 ; Back pain M54.9 ; Anxiety F41.9 and Insulin long-term use Z79.4 [facility] [id number] [place] [address] 80093- 6444 09 Dec, 2016 Anxiety F41.9 [facility] [id number] [place] [address] 63809- 7231 Dec, Back pain M54.9 [facility] [address] 29346- 3317 Nov, Back pain M54.9 [facility] [address] 07148- 6777 Oct, Back pain M54.9 and Anxiety F41.9 [facility] [id number] [place] [address] 16828- 4112 September, Back pain M54.9 [facility] [id number] [place] [address] 01775- 4176 September, Back pain M54.9 and Anxiety F41.9 [facility] [id number] [place] [address] 42658- 9556 Aug, Diabetes E11.9 ; Anxiety F41.9 ; Back pain M54.9 and PAD ( peripheral artery disease) I73.9 [facility] [id number] [place] [address] 48786- 1511 Aug, Anxiety F41.9 [facility] [id number] [place] [address] 42130- 5302 14 Aug, 2016 Back pain M54.9 [facility] [id number] [place] [address] 22891- 4360 23 Jul, 2016 Back pain M54.9 [facility] [id number] [place] [address] 57821- 2350 Jul, Back pain M54.9 [place] [id number] [place] [address] 34107- 7738 Jul, Back pain M54.9 [facility] [address] 62345- 1526 16 Jul, 2016 Dorsalgia M54.9 [facility] [id number] [place] [address] 21424- 9936 Jul, [facility] [address] 95481- 1948 May, Back pain M54.9 [facility] [address] 28644- 8386 May, Diabetes E11.9 ; Anxiety F41.9 ; Port catheter in place Z95.828 ; Encounter for immunization Z23 and Insulin long-term use Z79.4 [facility] [address] 93646- 3597 Apr, Back pain M54.9 [facility] [id number] [place] [address] 85398- 6116 Apr, Back pain M54.9 [facility] [id number] [place] [address] 29926- 5286 Apr, [facility] [id number] [place] [address] 66464- 1156 Apr, Back pain M54.9 [facility] [id number] [place] [address] 16676- 8541 Mar, COPD (chronic obstructive pulmonary disease) J44.9 [facility] [id number] [place] [address] 84894- 6399 Feb, [facility] [id number] [place] [address] 95856- 0279 30 Jan, 2016 [facility] [id number] [place] [address] 06306- 0986 Jan, [facility] [address] [address]- 8452 07 Jan, 2016 [facility] [id number] [place] [address] 07717- 6312 Jan, [facility] [id number] [place] [address] 75713- 8330 Dec, Diabetes E11.9 ; Hypoxia R09.02 and Back pain M54.9 [facility] [id number] [place] [address] 36127- 7139 Dec, [facility] [id number] [place] [address] 38966- 9335 Nov, [facility] [id number] [place] [address] 63524- 7210 Oct, Anxiety F41.9 [facility] [id number] [place] [address] 41187- 2916 Oct, Back pain M54.9 [facility] [id number] [place] [address] 97447- 5672 September, Back pain M54.9 [facility] [id number] [place] [address] 83862- 3939 September, Diabetes E11.9 [facility] [id number] [place] [address] 67356- 3839 September, [facility] [id number] [place] [address] 46890- 1786 September, Diabetes E11.9 ; Insulin long-term use Z79.4 and Back pain M54.9 [facility] [id number] [place] [address] 35777- 9765 Aug, Back pain M54.9 [facility] [id number] [place] [address] 72317- 4049 Aug, Back pain M54.9 ; Anxiety F41.9 and Arthropathy, unspecified M12.9 [facility] [address] [address]- 1784 Jul, Back pain M54.9 [facility] [id number] [place] [address] 45220- 7855 Jul, Anxiety F41.9 [facility] [id number] [place] [address] 93753- 2501 Jul, Back pain M54.9 [facility] [id number] [place] [address] 72440- 7685 Jul, [facility] [id number] [place] [address] 64263- 1471 Jul, [facility] [id number] [place] [address] 99481- 8276 May, Back pain M54.9 ; Diabetes E11.9 ; Insulin long-term use Z79.4 ; COPD (chronic obstructive pulmonary disease) J44.9 and Hypertension I10 [facility] [id number] [place] [address] 73484- 9867 May, Chronic pain G89.29 [facility] [id number] [place] [address] 33054- 8402 Apr, [facility] [id number] [place] [address] 51446- 3954 Apr, [facility] [id number] [place] [address] 29616- 4600 Mar, [facility] [id number] [place] [address] 70559- 8581 Mar, Encounter for immunization Z23 and Diabetes E11.9 [facility] [id number] [place] [address] 10605- 6158 Feb, [facility] [address] [place] [address] 61954- 2743 Feb, [facility] [id number] [place] [address]- 5921 Jan, [facility] [address] [id number] [place] 0549 Jan, [facility] [address] [facility] [id number] [place] [address]- 2246 Dec, [facility] [address] [place] [address]- 2883 Dec, [facility] [address] [place] [address]- 2894 Dec, Unspecified arthropathy, site unspecified 716.90 and Diabetes mellitus type 2, uncontrolled 250.02 [facility] [id number] [place] [address]- 3624 Dec, [facility] [address] [place] [address]- 1586 Nov, [facility] [address] [place] [address]- 1306 Oct, [facility] [address] [id number] [place] [address]- 2232 September, [facility] [address] [place] [address]- 6164 September, [facility] [id number] [address]- 7038 September, [facility] [id number] [address]- 4413 September, [facility] [address] [id number] [place] [address]- 2518 Aug, [facility] [id number] [place] [address]- 7585 Aug, [facility] [id number] [place] [address]- 8542 Jul, [facility] [place] [facility] [address] [id number] [place] [address]- 8605 18 Jul, 2014 [facility] [place] [facility] [address] [id number] [place] [address]- 8140 16 Jul, 2014 [facility] [place] [facility] [address] [id number] [place] [address]- 8420 16 Jul, 2014 [facility] [place] [facility] [address] [id number] [place] [address]- 0509 16 Jul, 2014 [facility] [place] [facility] [address] [id number] [place] [address]- 0980 16 Jul, 2014 [facility] [place] [facility] [address] [id number] [place] [address]- 2632 16 Jul, 2014 [facility] [place] [facility] [address] [id number] [place] [address]- 9719 16 Jul, 2014 [facility] [place] [facility] [address] [id number] [place] [address]- 7638 16 Jul, 2014 [facility] [place] [facility] [address] [id number] [place] [address]- 3428 13 Jul, 2014 [facility] [place] [facility] [address] [id number] [place] [address]- 2637 13 Jul, 2014 [facility] [place] [facility] [address] [id number] [place] [address]- 1732 09 Jul, 2014 [facility] [place] [facility] [address] [id number] [place] [address]- 7468 09 Jul, 2014 [facility] [place] [facility] [address] [id number] [place] [address]- 3470 17 Jul, 2014 [facility] [place] [facility] [address] [id number] [place] [address]- 9910 17 Jul, 2014 [facility] [place] [facility] [address] [id number] [place] [address]- 7786 16 Jul, 2014 [facility] [place] [facility] [address] [id number] [place] [address]- 5894 16 Jul, 2014 [facility] [place] [facility] [address] [id number] [place] [address]- 7726 16 Jul, 2014 [facility] [place] [facility] [address] [id number] [place]- 1939 16 Jul, 2014 [facility] [place] [facility] [address] [facility] [id number] [place] [address]- 4530 16 Jul, 2014 [facility] [place] [facility] [address] [id number] [place] [address]- 9625 16 Jul, 2014 [facility] [place] [facility] [address] [id number] [place] [address]- 0773 16 Jul, 2014 [facility] [place] [facility] [address] [id number] [place] [address]- 2513 16 Jul, 2014 [facility] [place] [facility] [address] [facility] [id number] [place] [address]- 1148 16 Jul, 2014 [facility] [place] [facility] [address] [id number] [place] [address]- 0791 Jul, 2014 [facility] [place] [facility] [address] [id number] [place] [address]- 7128 Jul, 2014 [facility] [place] [facility] [address] [facility] [id number] [place] [address]- 1790 16 Jul, 2014 [facility] [place] [facility] [address] [facility] [id number] [place] [address]- 8546 Jul, 2014 [facility] [place] [facility] [address] [facility] [id number] [place] [address]- 1941 Jul, 2014 [facility] [place] [facility] [address] [id number] [place] [address]- 4587 May, [facility] [place] [facility] [address] [id number] [place] [address]- 3232 May, [facility] [place] [facility] [address] [id number] [place] [address]- 8152 May, [facility] [place] [facility] [address] [id number] [place] [address]- 7590 May, [facility] [place] [facility] [address] [id number] [place] [address]- 1461 May, [facility] [place] [facility] [address] [id number] [place] [address]- 2295 May, [facility] [place] [facility] [address] [id number] [place] [address]- 3101 May, [facility] [place] [facility] [address] [id number] [place] [address]- 0056 May, [facility] [place] [facility] [address] [id number] [place] [address]- 4727 May, [facility] [place] [facility] [address] [id number] [place] [address]- 1256 May, [facility] [address] [id number] [place] [address]- 2627 Apr, [facility] [place] [facility] [address] [id number] [place] [address]- 0410 Apr, [facility] [place] [facility] [address] [id number] [place] [address]- 8527 Apr, [facility] [place] [facility] [address] [id number] [place] [address]- 8114 Apr, [facility] [place] [facility] [address] [id number] [place] [address]- 3236 Apr, [facility] [place] [facility] [address] [id number] [place] [address]- 4862 Apr, [facility] [place] [facility] [address] [id number] [place] [address]- 7467 Mar, [facility] [place] [facility] [address] [id number] [place] [address]- 7473 Mar, [facility] [place] [facility] [address] [id number] [address]- 9545 Mar, [facility] [place] [facility] [address] [id number] [place] [address]- 5520 Mar, [facility] [place] [facility] [address] [id number] [place] [address]- 1724 Mar, [facility] [place] [facility] [address] [id number] [place] [address]- 8243 Mar, [facility] [place] [facility] [address] [id number] [place] [address]- 1625 Mar, [facility] [place] [facility] [address] [id number] [place] [address]- 9584 Mar, [facility] [place] [facility] [address] [id number] [place] [address]- 1338 Mar, [facility] [place] [facility] [address] [id number] [place] [address]- 2146 Mar, [facility] [place] [facility] [address] [id number] [place] [address]- 2011 Mar, [facility] [place] [facility] [address] [id number] [place] [address]- 5277 Feb, [facility] [place] [facility] [address] [id number] [place] [address] Feb, [facility] [place] [facility] [address] [id number] [address] Feb, [facility] [place] [facility] [address] [id number] [place] [address] 15 Feb, 2014 [facility] [place] [facility] [address] [id number] [place] [address] Feb, [facility] [place] [facility] [address] [id number] [address] Feb, [facility] [place] [facility] [address] [id number] [place] [address] Feb, [facility] [place] [facility] [address] [id number] [place] [address] Feb, [facility] [place] [facility] [address] [id number] [place] [address] Feb, [facility] [place] [facility] [address] [id number] [place] [address] Feb, [facility] [place] [facility] [address] [id number] [place] [address] Jan, [facility] [place] [facility] [address] [id number] [place] [address] Jan, 2013 [facility] [place] [facility] [address] [id number] [place] [address]- [address] 16 Jan, 2014 [facility] [place] [facility] [address] [id number] [place] [address] 16 Jan, 2014 [facility] [place] [facility] [address] [id number] [place] [address] Jan, [facility] [place] [facility] [address] [id number] [place] [address] Jan, [facility] [place] [facility] [address] [id number] [place] [address] Jan, [facility] [place] [facility] [address] [id number] [place] [address] Dec, [facility] [place] [facility] [address] [id number] [place] [address] Dec, [facility] [place] [facility] [address] [id number] [place] [address] Dec, [facility] [place] [facility] [address] [id number] [place] [address] Dec, [facility] [place] [facility] [address] [id number] [place] [address] Dec, [facility] [place] [facility] [address] [id number] [place] [address] Dec, [facility] [place] [facility] [address] [id number] [place] [address] Dec, [facility] [place] [facility] [address] [id number] [place] [address] Dec, [facility] [place] [facility] [address] [id number] [place] [address] Oct, [facility] [place] [facility] [address] [id number] [place] [address] Oct, [facility] [place] [facility] [address] [id number] [place] [address] September, [facility] [place] [facility] [address] [id number] [place] [address] September, [facility] [place] [facility] [address] [id number] [place] [address] September, [facility] [place] [facility] [address] [id number] [place] [address] September, [facility] [place] [facility] [address] [id number] [place] [address] September, [facility] [place] [facility] [address] [id number] [place] [address] September, [facility] [place] [facility] [address] [id number] [place] [address]- [address] September, [facility] [place] [facility] [address] [id number] [place] [address] Aug, [facility] [place] [facility] [address] [id number] [place] [address] Aug, [facility] [place] [facility] [address] [id number] [place] [address] Jul, [facility] [place] [facility] [address] [id number] [place] [address] Jul, [facility] [place] [facility] [address] [id number] [place] [address]- [address] 17 Jul, 2013 [facility] [address] [id number] [place] [address] 17 Jul, 2013 [facility] [place] [facility] [address] [id number] [place] [address] 14 Jul, 2013 [facility] [place] [facility] [address] [id number] [place] [address] 14 Jul, 2013 [facility] [place] [facility] [address] [id number] [place] [address] 03 Jul, 2013 [facility] [place] [facility] [address] [id number] [place] [address] 03 Jul, 2013 [facility] [place] [facility] [address] [id number] [place] [address] 15 May, 2013 [facility] [place] [facility] [address] [id number] [place] [address] 15 May, 2013 [facility] [place] [facility] [address] [id number] [place] [address]83 14 May, 2013 [facility] [place] [facility] [address] [facility] [id number] [place] [address] 14 May, 2013 [facility] [place] [facility] [address] [facility] [id number] [place] [address] 18 Apr, 2013 [facility] [place] [facility] [address] [id number] [place] [address] Mar, [facility] [place] [facility] [address] [id number] [place] [address] 2549 Mar, [facility] [place] [facility] [address] [id number] [place] [address] 8366 Mar, [facility] [place] [facility] [address] [id number] [place] [address] 8794 Mar, [facility] [place] [facility] [address] [id number] [place] [address] 5940 Mar, [facility] [place] [facility] [address] [id number] [place] [address] 3220 Mar, [facility] [place] [facility] [address] [id number] [place] [address] 1695 Mar, [facility] [place] [facility] [address] [id number] [place] [address] 9126 Mar, [facility] [place] [facility] [address] [id number] [place] [address] 5008 Mar, [facility] [place] [facility] [address] [id number] [place] [address] 4[address] Mar, [facility] [place] [facility] [address] [id number] [place] [address]- 2353 Mar, [facility] [place] [facility] [address] [id number] [place] [address] 3742 Mar, [facility] [place] [facility] [address] [id number] [place] [address] Feb, [facility] [place] [facility] [address] [id number] [place] [address] 2887 Feb, [facility] [place] [facility] [address] [id number] [address] Feb, [facility] [place] [facility] [address] [id number] [place] [address] Feb, [facility] [place] [facility] [address] [id number] [place] [address] Feb, [facility] [place] [facility] [address] [id number] [place] [address] 7951 Jan, [facility] [place] [facility] [address] [id number] [place] [address] 2158 Dec, [facility] [place] [facility] [address] [id number] [place] [address] 1669 Dec, [facility] [place] [facility] [address] [id number] [place] [address] 6808 Dec, [facility] [address] [id number] [place] [address] 3325 Nov, [facility] [address] [id number] [place] [address] 5229 Nov, [facility] [address] [id number] [place] [address] 6328 Nov, [facility] [address] [id number] [place] [address] 4070 Oct, [facility] [address] [id number] [place] [address]- 4106 Oct, [facility] [address] [id number] [place] [address] 9838 Oct, [facility] [address] [id number] [place] [address] 4815 September, [facility] [address] [id number] [place] [address] September, [facility] [address] [id number] [place] [address] 0322 September[facility] [address] [id number] [place] [address] 5337 September, [facility] [address] [id number] [place] [address] 8514 September, [facility] [address] [id number] [place] [address] 7762 Aug, [facility] [place] [facility] [address] [id number] [place] [address] 5087 Aug, [facility] [place] [facility] [address] [id number] [place] [address] 3185 Aug, [facility] [address] [id number] [place] [address]- 0062 Jul, [facility] [address] [id number] [place] [address] 37[address] Jul, [facility] [address] [id number] [place] [address]- 9028 25 Jul, 2012 [facility] [place] [facility] [address] [id number] [place] [address] 3510 Jul, [facility] [address] [id number] [place] [address]- 5982 Jul, [facility] [place] [facility] [address] [id number] [place] [address] 0793 Jul, [facility] [place] [facility] [address] [id number] [place] [address]- 9589 Jul, [facility] [address] [id number] [place] [address] 9346 May, [facility] [address] [id number] [place] [address]- 5935 May, [facility] [address] [id number] [place] [address] 1458 May, [facility] [address] [id number] [place] [address] 8437 Apr, [facility] [address] [id number] [place] [address]- 9593 Apr, [facility] [address] [id number] [place] [address]- 9011 Apr, [facility] [place] [facility] [address] [id number] [place] [address] 7105 Apr, [facility] [place] [facility] [address] [id number] [place] [address]- 4386 Apr, [facility] [place] [facility] [address] [id number] [place] [address] 7007 29 Mar, 2012 [facility] [place] [facility] [address] [id number] [place] [address] 6[address] Mar, [facility] [place] [facility] [address] [id number] [place] [address]- 0804 Mar, [facility] [place] [facility] [address] [id number] [place] [address]- 2746 Mar, [facility] [place] [facility] [address] [id number] [place] [address]- 3166 Feb, [facility] [place] [facility] [address] [id number] [place] [address]- 3057 Feb, [facility] [place] [facility] [address] [id number] [place] [address]- 2487 Feb, [facility] [place] [facility] [address] [id number] [place] [address]- 3356 Feb, [facility] [place] [facility] [address] [id number] [place] [address]- 5526 Feb, [facility] [place] [facility] [address] [id number] [place] [address]- 3064 Jan, [facility] [place] [facility] [address] [id number] [place] [address]- 2045 Dec, [facility] [place] [facility] [address] [id number] [place] [address]- 1665 Dec, [facility] [place] [facility] [address] [id number] [place] [address]- 0049 Dec, [facility] [place] [facility] [address] [id number] [place] [address]- 0181 Nov, [facility] [place] [facility] [address] [id number] [place] [address]- 2400 Nov, [facility] [place] [facility] [address] [facility] [id number] [place] [address]- 7436 Nov, [facility] [place] [facility] [address] [id number] [place] [address]- 2546 Oct, [facility] [place] [facility] [address] [id number] [place] [address]- 8320 Oct, [facility] [address] [id number] [place] [address]- 5573 Oct, [facility] [address] [id number] [place] [address]- 3416 Oct, [facility] [address] [id number] [place] [address]- 6715 September, [facility] [address] [id number] [place] [address]- 4702 September, [facility] [address] [id number] [place] [address]- 8013 30 Aug, 2011 [facility] [address] [id number] [place] [address]- 2723 Aug, [facility] [address] [id number] [place] [address]- 3585 Aug, [facility] [address] [id number] [place] [address]- 1395 Aug, [facility] [address] [id number] [place] [address]- 4784 Aug, [facility] [address] [id number] [place] [address]- 8405 Aug, [facility] [address] [id number] [place] [address]- 2556 Aug, [facility] [address] [id number] [place] [address]- 6171 Jul, [facility] [place] [facility] [address] [id number] [place] [address]- 5944 Jul, [facility] [address] [id number] [place] [address]- 4566 14 Jul, 2011 [facility] [address] [id number] [place] [address]- 4705 May, [facility] [address] [facility] [id number] [place] [address]- 6472 May, [facility] [address] [facility] [id number] [place] [address]- 8726 May, [facility] [address] [facility] [id number] [place] [address]- 1556 Apr, [facility] [address] [facility] [id number] [place] [address]- 6596 Apr, [facility] [address] [facility] [id number] [place] [address]- 9079 Mar, [facility] [address] [facility] [id number] [place] [address]- 3141 Mar, [facility] [address] [facility] [id number] [place] [address]- 4377 Mar, [facility] [id number] [address]- 1105 Mar, [facility] [address] [facility] [id number] [place] [address]- 9365 Mar, [facility] [id number] [address]- 7112 Mar, [facility] [address] [id number] [address]- 3908 Feb, [facility] [address] [id number] [address]- 8844 Feb, [facility] [address] [facility] [id number] [place] [address]- 5327 Feb, IMMUNIZATIONS No Known Immunizations SOCIAL HISTORY Never Assessed REASON FOR VISIT Controlled Med Refill PLAN OF CARE VITAL SIGNS MEDICATIONS Medication Instructions Dosage Frequency Start Date End Date Duration Status Soma 350 mg Orally Once a day 1 tablet as needed 24h Active Lyrica 225 mg Orally Twice a day 1 capsule 12h 30 Active Hydrocodone-Acetaminophen 10-325 MG Orally every 6 hrs 1 tablet as needed 6h 07 Jan, 2018 28 days Active RESULTS No Results PROCEDURES [...]
--- OUTSIDE RECORDS SUMMARY | 2018-05-16 06:53 | XMS REPORT ---
Author Author MIGUELANGEL JONES Organization [facility] Address [address] [place] [address] Care Team Providers Care Training Technician Name Role Phone MIGUELANGEL JONES Unavailable PROBLEMS Type Condition ICD9-CM Code OMK05-PC Code Onset Dates Condition Status SNOMED Code Problem Hypoxia R09.02 Active 359857060 Problem Port catheter in place Z95.828 Active 811339976 Problem Anxiety F41.9 Active 02062703 Problem Type 2 diabetes mellitus with diabetic peripheral angiopathy without gangrene E11.51 Active 015820740 Problem Pressure ulcer of other site, stage 3 L89.893 Active 752210642 Problem Lumbar radiculopathy, chronic M54.16 Active 053371239 Problem PAD (peripheral artery disease) I73.9 Active 896287914 Problem assisted current use of insulin Z79.4 Active 491771164 Problem Recurrent major depressive disorder, in full remission F33.42 Active 858689260 Problem Diabetes E11.9 Active 77591742 Problem Hypertension I10 Active 25293908 Problem Back pain M54.9 Active 835678902 Problem Insulin long-term use Z79.4 Active 417855051 Problem COPD (chronic obstructive pulmonary disease) J44.9 Active 00185969 ALLERGIES No Information ENCOUNTERS Encounter Location Date Diagnosis [facility] [id number] [place] [address] 00804- 3660 Jan, Back pain M54.9 and Anxiety F41.9 [facility] [id number] [place] [address] 11447- 1997 Jan, [facility] [id number] [place] [address] 31574- 2712 Dec, [facility] [address] [address] 9594 Dec, Back pain M54.9 and Anxiety F41.9 [facility] [id number] [place] [address] 95360- 3481 Dec, Diabetes E11.9 ; Type 2 diabetes mellitus with diabetic peripheral angiopathy without gangrene E11.51 ; Lumbar radiculopathy, chronic M54.16 ; COPD (chronic obstructive pulmonary disease) J44.9 and Anxiety F41.9 [facility] [id number] [place] [address] 79420- 9146 Dec, Back pain M54.9 and Anxiety F41.9 [facility] [id number] [place] [address] 94350- 8628 Nov, Back pain M54.9 and Anxiety F41.9 [facility] [facility] [id number] [place] [address] 59411- 2557 Oct, [facility] [address] 00138- 2963 Oct, Back pain M54.9 and Anxiety F41.9 [facility] [id number] [place] [address] 97463- 5868 September, Anxiety F41.9 and Back pain M54.9 [facility] [facility] [id number] [place] [address] 42488- 8485 September, Diabetes E11.9 ; Hypertension I10 ; COPD (chronic obstructive pulmonary disease) J44.9 and Lumbar radiculopathy, chronic M54.16 [facility] [id number] [place] [address] 08316- 0920 September, Anxiety F41.9 [facility] [id number] [place] [address] 46385- 3852 Aug, [facility] [id number] [place] [address] 35883- 1087 Aug, [facility] [id number] [place] [address] 06099- 0810 Aug, Anxiety F41.9 and Back pain M54.9 [facility] [id number] [place] [address] 63132- 1480 Aug, Medicare annual wellness visit, initial Z00.00 ; COPD ( chronic obstructive pulmonary disease) J44.9 ; PAD (peripheral artery disease) I73.9 ; Insulin long-term use Z79.4 ; Hypertension I10 ; Anxiety F41.9 ; Recurrent major depressive disorder, in full remission F33.42 ; Pressure ulcer of other site, stage 3 L89.893 ; Type 2 diabetes mellitus with diabetic peripheral angiopathy without gangrene E11.51 and assisted current use of insulin Z79.4 [facility] [facility] [id number] [place] [address] 33028- 2354 Jul, Back pain M54.9 [facility] [id number] [place] [address] 34225- 5391 Jul, [facility] [address] 50181- 5886 Jul, Anxiety F41.9 and Back pain M54.9 [facility] [id number] [place] [address] 02752- 6588 Jul, Diabetes E11.9 [facility] [id number] [place] [address] 45235- 6013 May, [facility] [id number] [place] [address] 38776- 6128 May, Diabetes E11.9 ; Anxiety F41.9 ; Back pain M54.9 and COPD ( chronic obstructive pulmonary disease) J44.9 [facility] [id number] [place] [address] 73449- 1433 May, Back pain M54.9 [facility] [id number] [place] [address] 18143- 7843 May, [facility] [id number] [place] [address] 06049- 9134 Apr, Back pain M54.9 [facility] [id number] [place] [address] 17794- 2400 30 Mar, 2017 Back pain M54.9 [facility] [id number] [place] [address] 72318- 8287 20 Mar, 2017 [facility] [id number] [place] [address] 92154- 6503 16 Mar, 2017 [facility] [address] 53302- 5490 14 Mar, 2017 Radiculopathy of lumbar region M54.16 [facility] [address] 35872- 1898 13 Mar, 2017 [facility] [id number] [place] [address] 16531- 6229 07 Mar, 2017 Encounter for immunization Z23 and Lumbar radiculopathy, chronic M54.16 [facility] [id number] [place] [address] 50776- 2181 Mar, Back pain M54.9 and Anxiety F41.9 [facility] [id number] [place] [address] 15167 -7168 10 Feb, 2017 Acute bilateral low back pain with left-sided sciatica M54.42 and Acute bilateral low back pain with right-sided sciatica M54.41 [facility] [id number] [place] [address] 73018- 2453 Feb, [facility] [id number] [place] [address] 50782- 3497 Feb, Back pain M54.9 [facility] [id number] [place] [address] 08951- 2635 05 Jan, 2017 Back pain M54.9 and Anxiety F41.9 [facility] [id number] [place] [address] 50640- 4832 05 Jan, 2017 Diabetes E11.9 [facility] [address] [place] [address]- 8943 14 Dec, 2016 Diabetes E11.9 ; Back pain M54.9 ; Anxiety F41.9 and Insulin long-term use Z79.4 [facility] [id number] [place] [address] 79635- 6326 09 Dec, 2016 Anxiety F41.9 [facility] [id number] [place] [address] 51909- 1795 Dec, Back pain M54.9 [facility] [address] 10236- 7382 Nov, Back pain M54.9 [facility] [address] 70959- 4997 Oct, Back pain M54.9 and Anxiety F41.9 [facility] [id number] [place] [address] 61474- 8725 September, Back pain M54.9 [facility] [id number] [place] [address] 15714- 6438 September, Back pain M54.9 and Anxiety F41.9 [facility] [id number] [place] [address] 55681- 8574 Aug, Diabetes E11.9 ; Anxiety F41.9 ; Back pain M54.9 and PAD ( peripheral artery disease) I73.9 [facility] [id number] [place] [address] 77834- 8054 Aug, Anxiety F41.9 [facility] [id number] [place] [address] 78653- 1248 14 Aug, 2016 Back pain M54.9 [facility] [id number] [place] [address] 87603- 0929 23 Jul, 2016 Back pain M54.9 [facility] [id number] [place] [address] 36289- 6835 Jul, Back pain M54.9 [place] [id number] [place] [address] 80161- 1849 Jul, Back pain M54.9 [facility] [address] 98713- 9656 16 Jul, 2016 Dorsalgia M54.9 [facility] [id number] [place] [address] 95605- 8946 Jul, [facility] [address] 69410- 3004 May, Back pain M54.9 [facility] [address] 16890- 5789 May, Diabetes E11.9 ; Anxiety F41.9 ; Port catheter in place Z95.828 ; Encounter for immunization Z23 and Insulin long-term use Z79.4 [facility] [address] 63199- 6204 Apr, Back pain M54.9 [facility] [id number] [place] [address] 71774- 6660 Apr, Back pain M54.9 [facility] [id number] [place] [address] 84161- 5694 Apr, [facility] [id number] [place] [address] 97614- 3422 Apr, Back pain M54.9 [facility] [id number] [place] [address] 40324- 0935 Mar, COPD (chronic obstructive pulmonary disease) J44.9 [facility] [id number] [place] [address] 32426- 5367 Feb, [facility] [id number] [place] [address] 61469- 2156 30 Jan, 2016 [facility] [id number] [place] [address] 67900- 8647 Jan, [facility] [address], [place] [address]- 9803 07 Jan, 2016 [facility] [id number] [place] [address] 72917- 3425 Jan, [facility] [id number] [place] [address] 79207- 7564 Dec, Diabetes E11.9 ; Hypoxia R09.02 and Back pain M54.9 [facility] [id number] [place] [address] 86231- 8214 Dec, [facility] [id number] [place] [address] 75382- 5573 Nov, [facility] [id number] [place] [address] 68164- 2395 Oct, Anxiety F41.9 [facility] [id number] [place] [address] 09521- 7040 Oct, Back pain M54.9 [facility] [id number] [place] [address] 63161- 6233 September, Back pain M54.9 [facility] [id number] [place] [address] 81882- 1761 September, Diabetes E11.9 [facility] [id number] [place] [address] 61245- 3396 September, [facility] [id number] [place] [address] 21653- 3363 September, Diabetes E11.9 ; Insulin long-term use Z79.4 and Back pain M54.9 [facility] [id number] [place] [address] 06892- 1474 Aug, Back pain M54.9 [facility] [id number] [place] [address] 79503- 6069 Aug, Back pain M54.9 ; Anxiety F41.9 and Arthropathy, unspecified M12.9 [facility] [address] [address]- 4136 Jul, Back pain M54.9 [facility] [id number] [place] [address] 15407- 8211 Jul, Anxiety F41.9 [facility] [id number] [place] [address] 99393- 5431 Jul, Back pain M54.9 [facility] [id number] [place] [address] 16448- 3409 Jul, [facility] [id number] [place] [address] 94681- 2296 Jul, [facility] [id number] [place] [address] 75616- 9718 May, Back pain M54.9 ; Diabetes E11.9 ; Insulin long-term use Z79.4 ; COPD (chronic obstructive pulmonary disease) J44.9 and Hypertension I10 [facility] [id number] [place] [address] 01464- 1913 May, Chronic pain G89.29 [facility] [id number] [place] [address] 57675- 7239 Apr, [facility] [id number] [place] [address] 81081- 5347 Apr, [facility] [id number] [place] [address] 30754- 1776 Mar, [facility] [id number] [place] [address] 04054- 5676 Mar, Encounter for immunization Z23 and Diabetes E11.9 [facility] [id number] [place] [address] 21112- 1044 Feb, [facility] [address] [place] [address] 44717- 2991 Feb, [facility] [id number] [place] [address]- 4235 Jan, [facility] [address] [id number] [place] 2633 Jan, [facility] [address] [facility] [id number] [place] [address]- 9420 Dec, [facility] [address] [address]- 4028 Dec, [facility] [address] [address]- 7470 Dec, Unspecified arthropathy, site unspecified 716.90 and Diabetes mellitus type 2, uncontrolled 250.02 [facility] [id number] [place] [address]- 9327 Dec, [facility] [address] [place] [address]- 9552 Nov, [facility] [address] [address]- 7184 Oct, [facility] [address] [id number] [place] [address]- 9565 September, [facility] [address] [place] [address]- 3954 September, [facility] [id number] [address]- 4131 September, [facility] [id number] [address]- 0370 September, [facility] [address] [id number] [place] [address]- 0984 Aug, [facility] [id number] [place] [address]- 3583 Aug, [facility] [id number] [place] [address]- 1304 Jul, [facility] [place] [facility] [address] [id number] [place] [address]- 5314 18 Jul, 2014 [facility] [place] [facility] [address] [id number] [place] [address]- 9906 16 Jul, 2014 [facility] [place] [facility] [address] [id number] [place] [address]- 6543 16 Jul, 2014 [facility] [place] [facility] [address] [id number] [place] [address]- 7209 16 Jul, 2014 [facility] [place] [facility] [address] [id number] [place] [address]- 5601 16 Jul, 2014 [facility] [place] [facility] [address] [id number] [place] [address]- 3510 16 Jul, 2014 [facility] [place] [facility] [address] [id number] [place] [address]- 9252 16 Jul, 2014 [facility] [place] [facility] [address] [id number] [place] [address]- 4733 16 Jul, 2014 [facility] [place] [facility] [address] [id number] [place] [address]- 8495 13 Jul, 2014 [facility] [place] [facility] [address] [id number] [place] [address]- 4292 13 Jul, 2014 [facility] [place] [facility] [address] [id number] [place] [address]- 0482 09 Jul, 2014 [facility] [place] [facility] [address] [id number] [place] [address]- 2130 09 Jul, 2014 [facility] [place] [facility] [address] [id number] [place] [address]- 2886 17 Jul, 2014 [facility] [place] [facility] [address] [id number] [place] [address]- 4727 17 Jul, 2014 [facility] [place] [facility] [address] [id number] [place] [address]- 7816 16 Jul, 2014 [facility] [place] [facility] [address] [id number] [place] [address]- 8305 16 Jul, 2014 [facility] [place] [facility] [address] [id number] [place] [address]- 1133 16 Jul, 2014 [facility] [place] [facility] [address] [id number] [place] 3785 16 Jul, 2014 [facility] [place] [facility] [address] [facility] [id number] [place] [address]- 9749 16 Jul, 2014 [facility] [place] [facility] [address] [id number] [place] [address]- 7004 16 Jul, 2014 [facility] [place] [facility] [address] [id number] [place] [address]- 2859 16 Jul, 2014 [facility] [place] [facility] [address] [id number] [place] [address]- 0749 16 Jul, 2014 [facility] [place] [facility] [address] [facility] [id number] [place] [address]- 1560 16 Jul, 2014 [facility] [place] [facility] [address] [id number] [place] [address]- 6003 Jul, 2014 [facility] [place] [facility] [address] [id number] [place] [address]- 2373 Jul, 2014 [facility] [place] [facility] [address] [facility] [id number] [place] [address]- 4528 16 Jul, 2014 [facility] [place] [facility] [address] [facility] [id number] [place] [address]- 7278 Jul, 2014 [facility] [place] [facility] [address] [facility] [id number] [place] [address]- 3472 Jul, 2014 [facility] [place] [facility] [address] [id number] [place] [address]- 6713 May, [facility] [place] [facility] [address] [id number] [place] [address]- 7685 May, [facility] [place] [facility] [address] [id number] [place] [address]- 6967 May, [facility] [place] [facility] [address] [id number] [place] [address]- 3228 May, [facility] [place] [facility] [address] [id number] [place] [address]- 0399 May, [facility] [place] [facility] [address] [id number] [place] [address]- 4682 May, [facility] [place] [facility] [address] [id number] [place] [address]- 8735 May, [facility] [place] [facility] [address] [id number] [place] [address]- 2706 May, [facility] [place] [facility] [address] [id number] [place] [address]- 8500 May, [facility] [place] [facility] [address] [id number] [place] [address]- 3088 May, [facility] [address] [id number] [place] [address]- 4842 Apr, [facility] [place] [facility] [address] [id number] [place] [address]- 7670 Apr, [facility] [place] [facility] [address] [id number] [place] [address]- 0431 Apr, [facility] [place] [facility] [address] [id number] [place] [address]- 6516 Apr, [facility] [place] [facility] [address] [id number] [place] [address]- 5675 Apr, [facility] [place] [facility] [address] [id number] [place] [address]- 4147 Apr, [facility] [place] [facility] [address] [id number] [place] [address]- 8043 Mar, [facility] [place] [facility] [address] [id number] [place] [address]- 0167 Mar, [facility] [place] [facility] [address] [id number], [place] [address]- 5118 Mar, [facility] [place] [facility] [address] [id number] [place] [address]- 5854 Mar, [facility] [place] [facility] [address] [id number] [place] [address]- 9658 Mar, [facility] [place] [facility] [address] [id number] [place] [address]- 3088 Mar, [facility] [place] [facility] [address] [id number] [place] [address]- 1962 Mar, [facility] [place] [facility] [address] [id number] [place] [address]- 9848 Mar, [facility] [place] [facility] [address] [id number] [place] [address]- 6611 Mar, [facility] [place] [facility] [address] [id number] [place] [address]- 3538 Mar, [facility] [place] [facility] [address] [id number] [place] [address]- 9479 Mar, [facility] [place] [facility] [address] [id number] [place] [address]- 9086 Feb, [facility] [place] [facility] [address] [id number] [place] [address]- 9050 Feb, [facility] [place] [facility] [address] [id number], [place] [address]- 6377 Feb, [facility] [place] [facility] [address] [id number], [place] [address]- 4867 15 Feb, 2014 [facility] [place] [facility] [address] [id number] [place] [address] Feb, [facility] [place] [facility] [address] [id number], [place] [address] Feb, [facility] [place] [facility] [address] [id number] [place] [address] Feb, [facility] [place] [facility] [address] [id number] [place] [address] Feb, [facility] [place] [facility] [address] [id number] [place] [address] Feb, [facility] [place] [facility] [address] [id number] [place] [address] Feb, [facility] [place] [facility] [address] [id number] [place] [address] Jan, [facility] [place] [facility] [address] [id number] [place] [address] Jan, 2013 [facility] [place] [facility] [address] [id number] [place] [address] 16 Jan, 2014 [facility] [place] [facility] [address] [id number] [place] [address] 16 Jan, 2014 [facility] [place] [facility] [address] [id number] [place] [address] Jan, [facility] [place] [facility] [address] [id number] [place] [address] Jan, [facility] [place] [facility] [address] [id number] [place] [address] Jan, [facility] [place] [facility] [address] [id number] [place] [address] Dec, [facility] [place] [facility] [address] [id number] [place] [address] Dec, [facility] [place] [facility] [address] [id number] [place] [address] Dec, [facility] [place] [facility] [address] [id number] [place] [address] Dec, [facility] [place] [facility] [address] [id number] [place] [address] Dec, [facility] [place] [facility] [address] [id number] [place] [address] Dec, [facility] [place] [facility] [address] [id number] [place] [address] Dec, [facility] [place] [facility] [address] [id number] [place] [address] Dec, [facility] [place] [facility] [address] [id number] [place] [address] Oct, [facility] [place] [facility] [address] [id number] [place] [address] Oct, [facility] [place] [facility] [address] [id number] [place] [address] September, [facility] [place] [facility] [address] [id number] [place] [address] September, [facility] [place] [facility] [address] [id number] [place] [address] September, [facility] [place] [facility] [address] [id number] [place] [address] September, [facility] [place] [facility] [address] [id number] [place] [address] September, [facility] [place] [facility] [address] [id number] [place] [address] September, [facility] [place] [facility] [address] [id number] [place] [address] September, [facility] [place] [facility] [address] [id number] [place] [address] Aug, [facility] [place] [facility] [address] [id number] [place] [address] Aug, [facility] [place] [facility] [address] [id number] [place] [address] Jul, [facility] [place] [facility] [address] [id number] [place] [address] Jul, [facility] [place] [facility] [address] [id number] [place] [address] 17 Jul, 2013 [facility] [address] [id number] [place] [address] 17 Jul, 2013 [facility] [place] [facility] [address] [id number] [place] [address] 14 Jul, 2013 [facility] [place] [facility] [address] [id number] [place] [address]- [address] 14 Jul, 2013 [facility] [place] [facility] [address] [id number] [place] [address]- [address] 03 Jul, 2013 [facility] [place] [facility] [address] [id number] [place] [address] 03 Jul, 2013 [facility] [place] [facility] [address] [id number] [place] [address] 15 May, 2013 [facility] [place] [facility] [address] [id number] [place] [address]- [address] 15 May, 2013 [facility] [place] [facility] [address] [id number] [place] [address] 14 May, 2013 [facility] [place] [facility] [address] [facility] [id number] [place] [address] 14 May, 2013 [facility] [place] [facility] [address] [facility] [id number] [place] [address] 18 Apr, 2013 [facility] [place] [facility] [address] [id number] [place] [address] Mar, [facility] [place] [facility] [address] [id number] [place] [address] Mar, [facility] [place] [facility] [address] [id number] [place] [address] Mar, [facility] [place] [facility] [address] [id number] [place] [address] Mar, [facility] [place] [facility] [address] [id number] [place] [address] 67[address] Mar, [facility] [place] [facility] [address] [id number] [place] [address] Mar, [facility] [place] [facility] [address] [id number] [place] [address] 2796 Mar, [facility] [place] [facility] [address] [id number] [place] [address] 5873 Mar, [facility] [place] [facility] [address] [id number] [place] [address] 9[address] Mar, [facility] [place] [facility] [address] [id number] [place] [address] 2482 Mar, [facility] [place] [facility] [address] [id number] [place] [address] 7812 Mar, [facility] [place] [facility] [address] [id number] [place] [address] 4817 Mar, [facility] [place] [facility] [address] [id number] [place] [address] 34[address] Feb, [facility] [place] [facility] [address] [id number] [place] [address] 3963 Feb, [facility] [place] [facility] [address] [id number], [place] [address] Feb, [facility] [place] [facility] [address] [id number], [place] [address] Feb, [facility] [place] [facility] [address] [id number], [place] [address] Feb, [facility] [place] [facility] [address] [id number] [place] [address] Jan, [facility] [place] [facility] [address] [id number] [place] [address] Dec, [facility] [place] [facility] [address] [id number] [place] [address] 58[address] Dec, [facility] [place] [facility] [address] [id number] [place] [address] 49[address] Dec, [facility] [address] [id number] [place] [address] Nov, [facility] [address] [id number] [place] [address] 29[address] Nov, [facility] [address] [id number] [place] [address]276 Nov, [facility] [address] [id number] [place] [address] 5662 Oct, [facility] [address] [id number] [place] [address] Oct, [facility] [address] [id number] [place] [address] Oct, [facility] [address] [id number] [place] [address] 9170 September, [facility] [address] [id number] [place] [address] 48[address] September, [facility] [address] [id number] [place] [address]645 September[facility] [address] [id number] [place] [address] September, [facility] [address] [id number] [place] [address] 9885 September, [facility] [address] [id number] [place] [address] 1945 Aug, [facility] [place] [facility] [address] [id number] [place] [address] 4094 Aug, [facility] [place] [facility] [address] [id number] [place] [address] 9091 Aug, [facility] [address] [id number] [place] [address] Jul, [facility] [address] [id number] [place] [address] Jul, [facility] [address] [id number] [place] [address] 25 Jul, 2012 [facility] [place] [facility] [address] [id number] [place] [address]- 1071 Jul, [facility] [address] [id number] [place] [address] 1590 Jul, [facility] [place] [facility] [address] [id number] [place] [address] 3313 Jul, [facility] [place] [facility] [address] [id number] [place] [address] 4423 Jul, [facility] [address] [id number] [place] [address] May, [facility] [address] [id number] [place] [address] 9230 May, [facility] [address] [id number] [place] [address]- 1137 May, [facility] [address] [id number] [place] [address] 9653 Apr, [facility] [address] [id number] [place] [address] 6639 Apr, [facility] [address] [id number] [place] [address] 9924 Apr, [facility] [place] [facility] [address] [id number] [place] [address] 7649 Apr, [facility] [place] [facility] [address] [id number] [place] [address]- 5326 Apr, [facility] [place] [facility] [address] [id number] [place] [address]- 8823 29 Mar, 2012 [facility] [place] [facility] [address] [id number], [place] [address] Mar, [facility] [place] [facility] [address] [id number] [place] [address]- 4796 Mar, [facility] [place] [facility] [address] [id number] [place] [address] 6736 Mar, [facility] [place] [facility] [address] [id number] [place] [address] 7816 Feb, [facility] [place] [facility] [address] [id number] [place] [address]- 4880 Feb, [facility] [place] [facility] [address] [id number] [place] [address]- 2908 Feb, [facility] [place] [facility] [address] [id number] [place] [address]- 1056 Feb, [facility] [place] [facility] [address] [id number] [place] [address]- 1596 Feb, [facility] [place] [facility] [address] [id number] [place] [address]- 2905 Jan, [facility] [place] [facility] [address] [id number] [place] [address]- 7655 Dec, [facility] [place] [facility] [address] [id number] [place] [address]- 5151 Dec, [facility] [place] [facility] [address] [id number], [place] [address]- 0536 Dec, [facility] [place] [facility] [address] [id number], [place] [address]- 27[address] Nov, [facility] [place] [facility] [address] [id number] [place] [address]- 6479 Nov, [facility] [place] [facility] [address] [facility] [id number] [place] [address]- 5196 Nov, [facility] [place] [facility] [address] [id number] [place] [address]- 2546 Oct, [facility] [place] [facility] [address] [id number] [place] [address]- 3877 Oct, [facility] [address] [id number] [place] [address]- 2180 Oct, [facility] [address] [id number] [place] [address] 1988 Oct, [facility] [address] [id number] [place] [address]- 0218 September, [facility] [address] [id number] [place] [address]- 9514 September, [facility] [address] [id number] [place] [address]- 8237 30 Aug, 2011 [facility] [address] [id number] [place] [address]- 4202 Aug, [facility] [address] [id number] [place] [address]- 4670 Aug, [facility] [address] [id number] [place] [address]- 7139 Aug, [facility] [address] [id number] [place] [address]- 3812 Aug, [facility] [address] [id number] [place] [address]- 5275 Aug, [facility] [address] [id number] [place] [address]- 9925 Aug, [facility] [address] [id number] [place] [address]- 5937 Jul, [facility] [place] [facility] [address] [id number] [place] [address]- 5576 Jul, [facility] [address] [id number] [place] [address]- 5787 14 Jul, 2011 [facility] [address] [id number] [place] [address]- 7091 May, [facility] [address] [facility] [id number], [place] [address]- 8575 May, [facility] [address] [facility] [id number], [place] [address]- 3276 May, [facility] [address] [facility] [id number], [place] [address]- 8866 Apr, [facility] [address] [facility] [id number], [place] [address]- 6686 Apr, [facility] [address] [facility] [id number], [place] [address]- 3524 Mar, [facility] [address] [facility] [id number], [place] [address]- 8645 Mar, [facility] [id number], [place] [address]- 4615 Mar, [facility] [id number], [place] [address]- 0647 Mar, [facility] [id number], [place] [address]- 4041 Mar, [facility] [id number], [place] [address]- 9019 Mar, [facility] [address] [id number], [place] [address] 3485 Feb, [facility] [address] [id number], [place] [address] 0672 Feb, [facility] [address] [facility] [id number], [place] [address]- 6[address] Feb, IMMUNIZATIONS No Known Immunizations SOCIAL HISTORY Never Assessed REASON FOR VISIT controlled med refill 02/04 PLAN OF CARE VITAL SIGNS MEDICATIONS Medication Instructions Dosage Frequency Start Date End Date Duration Status Xanax 2 MG Orally 4 times a day PRN 1/2 tablet May, 28 days Active MS Contin 15 MG Orally every 8 hours 1 tablet 8h Jan, Feb, 28 days Active RESULTS No Results PROCEDURES [...] surgeries Hospitalization History foot infections x 3 2016
--- OUTSIDE RECORDS SUMMARY | 2018-05-16 06:53 | XMS REPORT ---
Author Author FERNY SILVERIO Organization [facility] [place] Address [address] [place] [address] Care Team Providers Care Label Maker Name Role Phone FERNY SILVERIO Unavailable PROBLEMS Type Condition ICD9-CM Code MCF35-SM Code Onset Dates Condition Status SNOMED Code Problem Hypoxia R09.02 Active 589322297 Problem Port catheter in place Z95.828 Active 837622484 Problem Anxiety F41.9 Active 64759377 Problem Type 2 diabetes mellitus with diabetic peripheral angiopathy without gangrene E11.51 Active 516262289 Problem Pressure ulcer of other site, stage 3 L89.893 Active 699863512 Problem Lumbar radiculopathy, chronic M54.16 Active 400986011 Problem PAD (peripheral artery disease) I73.9 Active 821396265 Problem 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9 and Anxiety F41.9 [facility] [place] [id number] [place] [address] 20227- 5195 Jan, [facility] [place] [id number] [place] [address] 84825- 1407 Dec, [facility] [place] [id number] [place] [address] 16913- 4725 Dec, Back pain M54.9 and Anxiety F41.9 [facility] [place] [id number] [place] [address] 24224- 8978 Dec, Diabetes E11.9 ; Type 2 diabetes mellitus with diabetic peripheral angiopathy without gangrene E11.51 ; Lumbar radiculopathy, chronic M54.16 ; COPD (chronic obstructive pulmonary disease) J44.9 and Anxiety F41.9 [facility] [place] [id number] [place] [address] 31172- 2837 Dec, Back pain M54.9 and Anxiety F41.9 [facility] [place] [id number] [place] [address] 26769- 1976 Nov, Back pain M54.9 and Anxiety F41.9 [facility] [place] [id number] [place] [address] 21415- 2764 Oct, [place] [address] 66781- 5786 Oct, Back pain M54.9 and Anxiety F41.9 [facility] [place] [id number] [place] [address] 51300- 3567 September, Anxiety F41.9 and Back pain M54.9 [facility] [place] [id number] [place] [address] 42731- 9336 September, Diabetes E11.9 ; Hypertension I10 ; COPD (chronic obstructive pulmonary disease) J44.9 and Lumbar radiculopathy, chronic M54.16 [facility] [place] [id number] [place] [address] 96457- 6011 September, Anxiety F41.9 [facility] [place] [id number] [place] [address] 61649- 5984 Aug, [facility] [place] [id number] [place] [address] 91861- 9196 Aug, [facility] [place] [id number] [place] [address] 12419- 0402 Aug, Anxiety F41.9 and Back pain M54.9 [facility] [place] [id number] [place] [address] 81539- 9243 Aug, Medicare annual wellness visit, initial Z00.00 ; COPD ( chronic obstructive pulmonary disease) J44.9 ; PAD (peripheral artery disease) I73.9 ; Insulin long-term use Z79.4 ; Hypertension I10 ; Anxiety F41.9 ; Recurrent major depressive disorder, in full remission F33.42 ; Pressure ulcer of other site, stage 3 L89.893 ; Type 2 diabetes mellitus with diabetic peripheral angiopathy without gangrene E11.51 and 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.4 [place] [address] 36509- 2459 Jul, Back pain M54.9 [place] [id number] [place] [address] 51987- 3578 Jul, [facility] [place] [address] 22334- 8065 Jul, Anxiety F41.9 and Back pain M54.9 [facility] [place] [id number] [place] [address] 97555- 6207 Jul, Diabetes E11.9 [facility] [place] [id number] [place] [address] 69623- 6790 May, [facility] [place] [id number] [place] [address] 16624- 2054 May, Diabetes E11.9 ; Anxiety F41.9 ; Back pain M54.9 and COPD ( chronic obstructive pulmonary disease) J44.9 [facility] [place] [id number] [place] [address] 62899- 3362 May, Back pain M54.9 [facility] [place] [id number] [place] [address] 46229- 3164 May, [facility] [place] [id number] [place] [address] 44660- 1311 Apr, Back pain M54.9 [facility] [place] [id number] [place] [address] 21173- 2612 30 Mar, 2017 Back pain M54.9 [facility] [place] [id number] [place] [address] 01846- 2193 20 Mar, 2017 [facility] [place] [id number] [place] [address] 50625- 9889 16 Mar, 2017 [facility] [place] [id number] [place] [address] 77163- 0707 14 Mar, 2017 Radiculopathy of lumbar region M54.16 [facility] [place] [address] 33566- 6761 13 Mar, 2017 [facility] [place] [id number] [place] [address] 37126- 6139 07 Mar, 2017 Encounter for immunization Z23 and Lumbar radiculopathy, chronic M54.16 [facility] [place] [id number] [place] [address] 66338- 3630 Mar, Back pain M54.9 and Anxiety F41.9 [facility] [id number] [place] [address] 87901 -3585 10 Feb, 2017 Acute bilateral low back pain with left-sided sciatica M54.42 and Acute bilateral low back pain with right-sided sciatica M54.41 [facility] [place] [id number] [place] [address] 30919- 1635 Feb, [facility] [place] [id number] [place] [address] 60100- 1627 Feb, Back pain M54.9 [facility] [place] [id number] [place] [address] 75089- 2541 05 Jan, 2017 Back pain M54.9 and Anxiety F41.9 [facility] [place] [id number] [place] [address] 81734- 0483 05 Jan, 2017 Diabetes E11.9 [facility] [place] [address] [place] [address]- 2323 14 Dec, 2016 Diabetes E11.9 ; Back pain M54.9 ; Anxiety F41.9 and Insulin long-term use Z79.4 [facility] [place] [id number] [place] [address] 03105- 9635 09 Dec, 2016 Anxiety F41.9 [facility] [place] [address] 93891- 7209 Dec, Back pain M54.9 [facility] [place] [address] 54077- 5844 Nov, Back pain M54.9 [facility] [place] [address] 54848- 3981 Oct, Back pain M54.9 and Anxiety F41.9 [facility] [place] [id number] [place] [address] 97280- 3993 September, Back pain M54.9 [facility] [place] [id number] [place] [address] 59417- 2796 September, Back pain M54.9 and Anxiety F41.9 [facility] [place] [id number] [place] [address] 95408- 1978 Aug, Diabetes E11.9 ; Anxiety F41.9 ; Back pain M54.9 and PAD ( peripheral artery disease) I73.9 [facility] [place] [id number] [place] [address] 77678- 4017 Aug, Anxiety F41.9 [facility] [place] [id number] [place] [address] 49468- 7149 14 Aug, 2016 Back pain M54.9 [facility] [place] [id number] [place] [address] 11426- 9863 23 Jul, 2016 Back pain M54.9 [facility] [place] [id number] [place] [address] 64966- 6917 Jul, Back pain M54.9 [place] [id number] [place] [address] 10737- 3271 23 Jul, 2016 Back pain M54.9 [facility] [place] [address] 90464 2546 16 Jul, 2016 Dorsalgia M54.9 [facility] [place] [address] 12897 2546 14 Jul, 2016 [facility] [place] [address] 63021 2540 May, Back pain M54.9 [facility] [place] [address] 06965- 4877 May, Diabetes E11.9 ; Anxiety F41.9 ; Port catheter in place Z95.828 ; Encounter for immunization Z23 and Insulin long-term use Z79.4 [facility] [place] [address] 81081- 9016 Apr, Back pain M54.9 [facility] [place] [address] 79552- 0375 Apr, Back pain M54.9 [facility] [place] [id number] [place] [address] 83020- 4208 Apr, [facility] [place] [id number] [place] [address] 94859- 1935 Apr, Back pain M54.9 [facility] [place] [id number] [place] [address] 08994 2548 Mar, COPD (chronic obstructive pulmonary disease) J44.9 [facility] [place] [id number] [place] [address] 48193- 1771 Feb, [facility] [place] [id number] [place] [address] 28286- 2541 30 Jan, 2016 [facility] [place] [id number] [place] [address] 21627- 2547 Jan, [facility] [place] [address] [address]- 4015 Jan, [facility] [place] [id number] [place] [address] 54712- 8465 Jan, [facility] [place] [id number] [place] [address] 67759- 7072 Dec, Diabetes E11.9 ; Hypoxia R09.02 and Back pain M54.9 [facility] [place] [id number] [place] [address] 39639- 2232 Dec, [facility] [place] [id number] [place] [address] 72977- 0488 Nov, [facility] [place] [id number] [place] [address] 07612- 9471 Oct, Anxiety F41.9 [facility] [place] [id number] [place] [address] 50142- 2536 Oct, Back pain M54.9 [facility] [place] [id number] [place] [address] 41002- 1327 September, Back pain M54.9 [facility] [place] [id number] [place] [address] 97388- 4226 September, Diabetes E11.9 [facility] [place] [id number] [place] [address] 33010- 5464 September, [facility] [place] [id number] [place] [address] 92160- 4113 September, Diabetes E11.9 ; Insulin long-term use Z79.4 and Back pain M54.9 [facility] [place] [id number] [place] [address] 71211- 3088 Aug, Back pain M54.9 [facility] [place] [id number] [place] [address] 17861- 7555 Aug, Back pain M54.9 ; Anxiety F41.9 and Arthropathy, unspecified M12.9 [facility] [place] [id number] [address]- 3771 Jul, Back pain M54.9 [facility] [place] [id number] [place] [address] 32172- 1692 Jul, Anxiety F41.9 [facility] [place] [id number] [place] [address] 09284- 7204 Jul, Back pain M54.9 [facility] [place] [id number] [place] [address] 27978- 2690 Jul, [facility] [place] [address] 72651- 5658 Jul, [facility] [place] [id number] [place] [address] 26044- 0952 May, Back pain M54.9 ; Diabetes E11.9 ; Insulin long-term use Z79.4 ; COPD (chronic obstructive pulmonary disease) J44.9 and Hypertension I10 [facility] [place] [id number] [place] [address] 55447- 4187 May, Chronic pain G89.29 [facility] [place] [id number] [place] [address] 80877- 0943 Apr, [facility] [place] [id number] [place] [address] 76983- 3998 Apr, [facility] [place] [id number] [place] [address] 33457- 2188 Mar, [facility] [place] [id number] [place] [address] 51398- 5063 Mar, Encounter for immunization Z23 and Diabetes E11.9 [facility] [place] [id number] [place] [address] 95427- 9853 Feb, [facility] [place] [id number] [place] [address] 11106- 6538 Feb, [facility] [place] [id number] [place] [address]- 2520 Jan, [facility] [place] [address] [facility] [id number] [place]- 1960 Jan, [facility] [place] [address] [facility] [id number] [place] [address]- 2396 Dec, [facility] [place] [id number] [place] [address]- 5096 Dec, [facility] [place] [address] [place] [address]- 6551 Dec, Unspecified arthropathy, site unspecified 716.90 and Diabetes mellitus type 2, uncontrolled 250.02 [facility] [place] [address] [facility] [id number] [place] [address]- 9952 Dec, [facility] [place] [address] [address]- 3840 Nov, [facility] [place] [id number] [place] [address]- 8995 Oct, [facility] [place] [id number] [place] [address]- 0051 September, [facility] [place] [id number] [place] [address]- 1881 September, [facility] [place] [id number] [address]- 8156 September, [facility] [place] [id number] [address]- 1052 September, [facility] [place] [address] [id number] [place] [address]- 6142 14 Aug, 2014 [facility] [place] [address] [facility] [id number] [place] [address]- 2674 Aug, [facility] [place] [id number] [place] [address]- 5945 Jul, [facility] [place] [facility] [address] [id number] [place] [address]- 7715 18 Jul, 2014 [facility] [place] [facility] [address] [id number] [place] [address]- 6572 16 Jul, 2014 [facility] [place] [facility] [address] [id number] [place] [address]- 2808 16 Jul, 2014 [facility] [place] [facility] [address] [id number] [place] [address]- 6167 16 Jul, 2014 [facility] [place] [facility] [address] [id number] [place] [address]- 9010 16 Jul, 2014 [facility] [place] [facility] [address] [id number] [place] [address]- 1483 16 Jul, 2014 [facility] [place] [facility] [address] [id number] [place] [address]- 5457 16 Jul, 2014 [facility] [place] [facility] [address] [id number] [place] [address]- 7738 16 Jul, 2014 [facility] [place] [facility] [address] [id number] [place] [address]- 6218 13 Jul, 2014 [facility] [place] [facility] [address] [id number] [place] [address]- 5365 13 Jul, 2014 [facility] [place] [facility] [address] [id number] [place] [address]- 0853 09 Jul, 2014 [facility] [place] [facility] [address] [id number] [place] [address] 09 Jul, 2014 [facility] [place] [facility] [address] [id number] [place] [address] 17 Jul, 2014 [facility] [place] [facility] [address] [id number] [place] [address] 17 Jul, 2014 [facility] [place] [facility] [address] [id number] [place] [address] 16 Jul, 2014 [facility] [place] [facility] [address] [id number] [place] [address] 16 Jul, 2014 [facility] [place] [facility] [address] [id number] [place] [address] 16 Jul, 2014 [facility] [place] [facility] [address] [id number] [place] [address] 16 Jul, 2014 [facility] [place] [facility] [address] [facility] [id number] [place] [address] 16 Jul, 2014 [facility] [place] [facility] [address] [id number] [place] [address] 98[address] 16 Jul, 2014 [facility] [place] [facility] [address] [id number] [place] [address] 16 Jul, 2014 [facility] [place] [facility] [address] [id number] [place] [address]10 16 Jul, 2014 [facility] [place] [facility] [address] [facility] [id number] [place] [address] 16 Jul, 2014 [facility] [place] [facility] [address] [id number] [place] [address] Jul, 2014 [facility] [place] [facility] [address] [id number] [place] [address]- 2021 Jul, 2014 [facility] [place] [facility] [address] [facility] [id number] [place] [address] 16 Jul, 2014 [facility] [place] [facility] [address] [facility] [id number] [place] [address]- [address] Jul, 2014 [facility] [place] [facility] [address] [facility] [id number] [place] [address] Jul, 2014 [facility] [place] [facility] [address] [id number] [place] [address] May, [facility] [place] [facility] [address] [id number] [place] [address] May, [facility] [place] [facility] [address] [facility] [id number] [place] [address] May, [facility] [place] [facility] [address] [id number] [place] [address] May, [facility] [place] [facility] [address] [id number] [place] [address] May, [facility] [place] [facility] [address] [id number] [place] [address] May, [facility] [place] [facility] [address] [id number] [place] [address]- [address] May, [facility] [place] [facility] [address] [id number] [place] [address] May, [facility] [place] [facility] [address] [id number] [place] [address] May, [facility] [place] [facility] [address] [id number] [place] [address] May, [facility] [place] [facility] [address] [id number] [place] [address] Apr, [facility] [place] [facility] [address] [id number] [place] [address] Apr, [facility] [place] [facility] [address] [id number] [place] [address] Apr, [facility] [place] [facility] [address] [id number] [place] [address] Apr, [facility] [place] [facility] [address] [id number] [place] [address] Apr, [facility] [place] [facility] [address] [id number] [place] [address] Apr, [facility] [place] [facility] [address] [id number] [place] [address] Mar, [facility] [place] [facility] [address] [id number] [place] [address] 7315 Mar, [facility] [place] [facility] [address] [id number], [place] [address] Mar, [facility] [place] [facility] [address] [id number] [place] [address] 9206 Mar, [facility] [place] [facility] [address] [id number], [place] [address] Mar, [facility] [place] [facility] [address] [id number] [place] [address]- 0985 Mar, [facility] [place] [facility] [address] [id number] [place] [address] 8688 Mar, [facility] [place] [facility] [address] [id number] [place] [address]- 3485 Mar, [facility] [place] [facility] [address] [id number] [place] [address] 3483 Mar, [facility] [place] [facility] [address] [id number] [place] [address]- 5185 Mar, [facility] [place] [facility] [address] [id number] [place] [address] 7549 Mar, [facility] [place] [facility] [address] [id number] [place] [address]- 9244 Feb, [facility] [place] [facility] [address] [id number] [place] [address] 2144 30 Feb, 2014 [facility] [place] [facility] [address] [id number], [place] [address] Feb, [facility] [place] [facility] [address] [id number], [place] [address] 15 Feb, 2014 [facility] [place] [facility] [address] [id number], [place] [address] 15[address] Feb, [facility] [place] [facility] [address] [id number], [place] [address] 2004 Feb, [facility] [place] [facility] [address] [id number] [place] [address]- 0776 Feb, [facility] [place] [facility] [address] [id number] [place] [address]- 9565 Feb, [facility] [place] [facility] [address] [id number] [place] [address]- 8959 Feb, [facility] [place] [facility] [address] [id number] [place] [address]- 9596 Feb, [facility] [place] [facility] [address] [id number] [place] [address]- 2095 Jan, [facility] [place] [facility] [address] [id number] [place] [address]- 0841 Jan, [facility] [place] [facility] [address] [id number] [place] [address]- 0077 Jan, [facility] [place] [facility] [address] [id number] [place] [address]- 2759 Jan, [facility] [place] [facility] [address] [id number] [place] [address]- 9578 Jan, [facility] [place] [facility] [address] [id number] [place] [address]- 8302 Jan, [facility] [place] [facility] [address] [id number] [place] [address]- 6097 Jan, [facility] [place] [facility] [address] [id number] [place] [address]- [address] Dec, [facility] [place] [facility] [address] [id number] [place] [address]- 8828 Dec, [facility] [place] [facility] [address] [id number] [place] [address]- 5059 Dec, [facility] [place] [facility] [address] [id number] [place] [address]- 8445 Dec, [facility] [place] [facility] [address] [id number] [place] [address]- 5489 Dec, [facility] [place] [facility] [address] [id number] [place] [address]- 9553 Dec, [facility] [place] [facility] [address] [id number] [place] [address]- 2747 Dec, [facility] [place] [facility] [address] [id number] [place] [address]- 6881 Dec, [facility] [place] [facility] [address] [id number] [place] [address]- 0666 Oct, [facility] [place] [facility] [address] [id number] [place] [address]- 5149 Oct, [facility] [place] [facility] [address] [id number] [place] [address]- 4513 September, [facility] [place] [facility] [address] [id number] [place] [address]- 2981 September, [facility] [place] [facility] [address] [id number] [place] [address]- 0545 September, [facility] [place] [facility] [address] [id number] [place] [address]- 7787 September, [facility] [place] [facility] [address] [id number] [place] [address]- 6814 September, [facility] [place] [facility] [address] [id number] [place] [address]- 6043 September, [facility] [place] [facility] [address] [id number] [place] [address]- 0824 September, [facility] [place] [facility] [address] [id number] [place] [address]- 6006 Aug, [facility] [place] [facility] [address] [id number] [place] [address]- 6183 Aug, [facility] [place] [facility] [address] [id number] [place] [address]- 5993 Jul, [facility] [place] [facility] [address] [id number] [place] [address]- 0334 Jul, [facility] [place] [facility] [address] [id number] [place] [address]- 7075 17 Jul, 2013 [facility] [place] [facility] [address] [id number] [place] [address] 17 Jul, 2013 [facility] [place] [facility] [address] [id number] [place] [address]- 9276 14 Jul, 2013 [facility] [place] [facility] [address] [id number] [place] [address]- 4076 14 Jul, 2013 [facility] [place] [facility] [address] [id number] [place] [address]- 0690 03 Jul, 2013 [facility] [place] [facility] [address] [id number] [place] [address] 03 Jul, 2013 [facility] [place] [facility] [address] [id number] [place] [address]- 0144 15 May, 2013 [facility] [place] [facility] [address] [id number] [place] [address]- 8669 15 May, 2013 [facility] [place] [facility] [address] [id number] [place] [address]- 6188 May, [facility] [place] [facility] [address] [id number] [place] [address]- 5459 May, [facility] [place] [facility] [address] [id number] [place] [address] 9894 18 Apr, 2013 [facility] [place] [facility] [address] [id number] [place] [address]- 9284 Mar, [facility] [place] [facility] [address] [id number] [place] [address]- 3751 Mar, [facility] [place] [facility] [address] [id number] [place] [address]- 8613 Mar, [facility] [place] [facility] [address] [id number] [place] [address]- 2190 Mar, [facility] [place] [facility] [address] [id number] [place] [address]- 8075 Mar, [facility] [place] [facility] [address] [id number] [place] [address]- 6258 Mar, [facility] [place] [facility] [address] [id number] [place] [address]- 4985 Mar, [facility] [place] [facility] [address] [id number] [place] [address]- 4435 Mar, [facility] [place] [facility] [address] [id number] [place] [address]- 1791 Mar, [facility] [place] [facility] [address] [id number] [place] [address]- 7799 Mar, [facility] [place] [facility] [address] [id number] [place] [address]- 0241 Mar, [facility] [place] [facility] [address] [id number] [place] [address]- 7615 Mar, [facility] [place] [facility] [address] [id number], [place] [address]- 4886 Feb, [facility] [place] [facility] [address] [id number] [place] [address]- 2915 Feb, [facility] [place] [facility] [address] [id number], [place] [address]- 5015 Feb, [facility] [place] [facility] [address] [id number], [place] [address]- 9168 Feb, [facility] [place] [facility] [address] [id number], [place] [address]- 8979 Feb, [facility] [place] [facility] [address] [id number] [place] [address]- 1335 Jan, [facility] [place] [facility] [address] [id number], [place] [address]- 8164 Dec, [facility] [place] [facility] [address] [id number] [place] [address]- 7500 Dec, [facility] [place] [facility] [address] [id number] [place] [address]- 9366 Dec, [facility] [address] [id number] [place] [address]- 6551 Nov, [facility] [address] [id number] [place] [address]- 1359 Nov, [facility] [address] [id number] [place] [address]- 9247 Nov, [facility] [place] [facility] [address] [id number] [place] [address]- 4689 Oct, [facility] [address] [id number] [place] [address]- 3018 Oct, [facility] [address] [id number] [place] [address]- 0974 Oct, [facility] [address] [id number] [place] [address]- 2238 September, [facility] [address] [id number] [place] [address]- 3875 September, [facility] [address] [id number] [place] [address]- 6641 September, [facility] [address] [id number] [place] [address]- 9085 September, [facility] [address] [id number] [place] [address]- 9152 September, [facility] [place] [facility] [address] [id number] [place] [address]- 7762 Aug, [facility] [place] [facility] [address] [id number] [place] [address]- 6638 Aug, [facility] [place] [facility] [address] [id number] [place] [address]- 0517 Aug, [facility] [place] [facility] [address] [id number] [place] [address]- 2064 Jul, [facility] [place] [facility] [address] [id number] [place] [address]- 0191 Jul, [facility] [address] [id number] [place] [address]- 6445 Jul, [facility] [address] [id number] [place] [address]- 4782 Jul, [facility] [address] [id number] [place] [address]- 6289 Jul, [facility] [address] [id number] [place] [address]- 6777 Jul, [facility] [address] [id number] [place] [address]- 8819 Jul, [facility] [address] [id number] [place] [address]- 9755 May, [facility] [address] [id number] [place] [address]- 2608 May, [facility] [address] [id number] [place] [address]- 6920 May, [facility] [address] [id number] [place] [address]- 5101 Apr, [facility] [address] [id number] [place] [address]- 2430 Apr, [facility] [address] [id number] [place] [address]- 8266 Apr, [facility] [place] [facility] [address] [id number] [place] [address]- 1832 Apr, [facility] [place] [facility] [address] [id number] [place] [address]- 6366 Apr, [facility] [place] [facility] [address] [id number] [place] [address]- 0377 29 Mar, 2012 [facility] [address] [id number] [place] [address]- 9165 Mar, [facility] [place] [facility] [address] [id number] [place] [address]- 1071 Mar, [facility] [place] [facility] [address] [id number] [place] [address]- 2906 Mar, [facility] [place] [facility] [address] [id number] [place] [address]- 1836 Feb, [facility] [place] [facility] [address] [id number] [place] [address]- 4056 Feb, [facility] [place] [facility] [address] [id number] [place] [address]- 4607 Feb, [facility] [place] [facility] [address] [id number] [place] [address]- 3298 Feb, [facility] [place] [facility] [address] [id number] [place] [address]- 5608 Feb, [facility] [place] [facility] [address] [id number] [place] [address]- 9559 Jan, [facility] [place] [facility] [address] [id number] [place] [address]- 3261 Dec, [facility] [place] [facility] [address] [id number] [place] [address]- 6920 Dec, [facility] [place] [facility] [address] [id number] [place] [address]- 3784 Dec, [facility] [place] [facility] [address] [id number] [place] [address]- 0181 Nov, [facility] [place] [facility] [address] [id number] [place] [address]- 1613 Nov, [facility] [place] [facility] [address] [id number] [place] [address]- 3161 Nov, [facility] [place] [facility] [address] [id number] [place] [address]- 9527 Oct, [facility] [place] [facility] [address] [id number] [place] [address]- 8466 19 Oct, 2011 [facility] [address] [id number] [place] [address]- 7357 18 Oct, 2011 [facility] [place] [facility] [address] [id number] [place] [address]- 6076 Oct, [facility] [address] [id number] [place] [address]- 7080 September, [facility] [address] [id number] [place] [address]- 1524 September, [facility] [address] [id number] [place] [address]- 6329 30 Aug, 2011 [facility] [address] [id number] [place] [address]- 4703 Aug, [facility] [address] [id number] [place] [address]- 7519 Aug, [facility] [address] [id number] [place] [address]- 7985 Aug, [facility] [address] [id number] [place] [address]- 2000 Aug, [facility] [address] [id number] [place] [address]- 0498 Aug, [facility] [address] [id number] [place] [address]- 7650 Aug, [facility] [address] [id number] [place] [address]- 6579 Jul, [facility] [place] [facility] [address] [id number] [place] [address]- 5085 Jul, [facility] [place] [facility] [address] [id number] [place] [address]- 0706 14 Jul, 2011 [facility] [place] [facility] [address] [id number] [place] [address]- 2762 May, [facility] [place] [address] [facility] [id number], [place] [address]- 2604 May, [facility] [place] [address] [facility] [id number], [place] [address]- 7402 May, [facility] [place] [address] [facility] [id number][place]- [address]01 Apr, [facility] [place] [address] [facility] [id number], [place] [address]- 9803 Apr, [facility] [place] [address] [facility] [id number], [place] [address]- 4507 Mar, [facility] [place] [address] [facility] [id number], [place] [address]- 4947 Mar, [facility] [place] [id number], [place] [address]- 7115 Mar, [facility] [place] [id number], [place] [address]- 4349 Mar, [facility] [place] [address] [facility] [id number], [place] [address]- 8781 Mar, [facility] [place] [address] [id number], [place] [address]- 6472 Mar, [facility] [place] [address] [id number], [place] [address]- 9862 Feb, [facility] [place] [address] [id number], [place] [address]- 1144 Feb, [facility] [place] [address] [id number], [place] [address]- 8754 Feb, IMMUNIZATIONS No Known Immunizations SOCIAL HISTORY Never Assessed REASON FOR VISIT Refill request PLAN OF CARE VITAL SIGNS MEDICATIONS Unknown [...]
[2018-05-16] MEDS ORDERED: CITA40TA11 (06:54)
--- OUTSIDE RECORDS SUMMARY | 2018-05-16 06:54 | XMS REPORT ---
Author Author FERNY SILVERIO Organization [facility] [place] Address [address] [place] [address] Care Team Providers Care Track Template Maker Name Role Phone FERNY SILVERIO Unavailable PROBLEMS Type Condition ICD9-CM Code YXF13-BC Code Onset Dates Condition Status SNOMED Code Problem Hypoxia R09.02 Active 128235691 Problem Port catheter in place Z95.828 Active 785151509 Problem Anxiety F41.9 Active 44991407 Problem Type 2 diabetes mellitus with diabetic peripheral angiopathy without gangrene E11.51 Active 031490186 Problem Pressure ulcer of other site, stage 3 L89.893 Active 512074307 Problem Lumbar radiculopathy, chronic M54.16 Active 990374688 Problem PAD (peripheral artery disease) I73.9 Active 737749556 Problem 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 Active 983184666 Problem Recurrent major depressive disorder, in full remission F33.42 Active 072971408 Problem Diabetes E11.9 Active 74373806 Problem Hypertension I10 Active 30706023 Problem Back pain M54.9 Active 255649946 Problem Insulin long-term use Z79.4 Active 576352793 Problem COPD (chronic obstructive pulmonary disease) J44.9 Active 51227650 ALLERGIES No Information ENCOUNTERS Encounter Location Date Diagnosis [facility] [place] [id number] [place] [address] 42344- 9283 Jan, Back pain M54.9 and Anxiety F41.9 [facility] [place] [id number] [place] [address] 69043- 0604 Jan, [facility] [place] [id number] [place] [address] 69527- 8044 Dec, [facility] [place] [id number] [place] [address] 66785- 2273 Dec, Back pain M54.9 and Anxiety F41.9 [facility] [place] [id number] [place] [address] 01949- 1843 Dec, Diabetes E11.9 ; Type 2 diabetes mellitus with diabetic peripheral angiopathy without gangrene E11.51 ; Lumbar radiculopathy, chronic M54.16 ; COPD (chronic obstructive pulmonary disease) J44.9 and Anxiety F41.9 [facility] [place] [id number] [place] [address] 51875- 7108 Dec, Back pain M54.9 and Anxiety F41.9 [facility] [place] [id number] [place] [address] 05201- 3569 Nov, Back pain M54.9 and Anxiety F41.9 [facility] [place] [id number] [place] [address] 44652- 9265 Oct, [place] [address] 81894- 9114 Oct, Back pain M54.9 and Anxiety F41.9 [facility] [place] [id number] [place] [address] 86381- 7674 September, Anxiety F41.9 and Back pain M54.9 [facility] [place] [id number] [place] [address] 73085- 7029 September, Diabetes E11.9 ; Hypertension I10 ; COPD (chronic obstructive pulmonary disease) J44.9 and Lumbar radiculopathy, chronic M54.16 [facility] [place] [id number] [place] [address] 69517- 4103 September, Anxiety F41.9 [facility] [place] [id number] [place] [address] 76059- 8629 Aug, [facility] [place] [id number] [place] [address] 39071- 2412 Aug, [facility] [place] [id number] [place] [address] 42117- 1032 Aug, Anxiety F41.9 and Back pain M54.9 [facility] [place] [id number] [place] [address] 26420- 7847 Aug, Medicare annual wellness visit, initial Z00.00 [...] peripheral angiopathy without gangrene E11.51 and 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 [place] [address] 90839- 6293 Jul, Back pain M54.9 [place] [id number] [place] [address] 92455- 7028 Jul, [facility] [place] [address] 69299- 2054 Jul, Anxiety F41.9 and Back pain M54.9 [facility] [place] [id number] [place] [address] 72669- 1421 Jul, Diabetes E11.9 [facility] [place] [id number] [place] [address] 40103- 9438 May, [facility] [place] [id number] [place] [address] 73250- 5739 May, Diabetes E11.9 ; Anxiety F41.9 ; Back pain M54.9 and COPD ( chronic obstructive pulmonary disease) J44.9 [facility] [place] [id number] [place] [address] 55316- 5368 May, Back pain M54.9 [facility] [place] [id number] [place] [address] 97709- 2418 May, [facility] [place] [id number] [place] [address] 45913- 6800 Apr, Back pain M54.9 [facility] [place] [id number] [place] [address] 26248- 8997 30 Mar, 2017 Back pain M54.9 [facility] [place] [id number] [place] [address] 98684- 9854 20 Mar, 2017 [facility] [place] [id number] [place] [address] 03097- 8187 16 Mar, 2017 [facility] [place] [id number] [place] [address] 34181- 4603 14 Mar, 2017 Radiculopathy of lumbar region M54.16 [facility] [place] [address] 75831- 1413 13 Mar, 2017 [facility] [place] [id number] [place] [address] 63318- 8231 07 Mar, 2017 Encounter for immunization Z23 and Lumbar radiculopathy, chronic M54.16 [facility] [place] [id number] [place] [address] 03958- 2221 Mar, Back pain M54.9 and Anxiety F41.9 [facility] [id number] [place] [address] 98632 -2738 10 Feb, 2017 Acute bilateral low back pain with left-sided sciatica M54.42 and Acute bilateral low back pain with right-sided sciatica M54.41 [facility] [place] [id number] [place] [address] 22940- 7186 Feb, [facility] [place] [id number] [place] [address] 88534- 8924 Feb, Back pain M54.9 [facility] [place] [id number] [place] [address] 83365- 2129 05 Jan, 2017 Back pain M54.9 and Anxiety F41.9 [facility] [place] [id number] [place] [address] 69816- 8526 05 Jan, 2017 Diabetes E11.9 [facility] [place] [id number] [place] [address]- 8475 14 Dec, 2016 Diabetes E11.9 ; Back pain M54.9 ; Anxiety F41.9 and Insulin long-term use Z79.4 [facility] [place] [id number] [place] [address] 95590- 4454 09 Dec, 2016 Anxiety F41.9 [facility] [place] [address] 59594- 7271 Dec, Back pain M54.9 [facility] [place] [address] 28120- 2308 Nov, Back pain M54.9 [facility] [place] [address] 49490- 7967 Oct, Back pain M54.9 and Anxiety F41.9 [facility] [place] [id number] [place] [address] 19465- 0603 September, Back pain M54.9 [facility] [place] [id number] [place] [address] 21147- 4670 September, Back pain M54.9 and Anxiety F41.9 [facility] [place] [id number] [place] [address] 88006- 1556 Aug, Diabetes E11.9 ; Anxiety F41.9 ; Back pain M54.9 and PAD ( peripheral artery disease) I73.9 [facility] [place] [id number] [place] [address] 72375- 7979 Aug, Anxiety F41.9 [facility] [place] [id number] [place] [address] 23007- 6625 14 Aug, 2016 Back pain M54.9 [facility] [place] [id number] [place] [address] 71802- 5764 23 Jul, 2016 Back pain M54.9 [facility] [place] [id number] [place] [address] 10382- 2091 Jul, Back pain M54.9 [place] [id number] [place] [address] 56726- 0342 23 Jul, 2016 Back pain M54.9 [facility] [place] [address] 78575 2546 16 Jul, 2016 Dorsalgia M54.9 [facility] [place] [address] 50972 2546 14 Jul, 2016 [facility] [place] [address] 08534 2549 May, Back pain M54.9 [facility] [place] [address] 43163- 7196 May, Diabetes E11.9 ; Anxiety F41.9 ; Port catheter in place Z95.828 ; Encounter for immunization Z23 and Insulin long-term use Z79.4 [facility] [place] [address] 25222- 0171 Apr, Back pain M54.9 [facility] [place] [address] 56464- 4894 Apr, Back pain M54.9 [facility] [place] [id number] [place] [address] 73904- 5431 Apr, [facility] [place] [id number] [place] [address] 15407- 0522 Apr, Back pain M54.9 [facility] [place] [id number] [place] [address] 43627 254 Mar, COPD (chronic obstructive pulmonary disease) J44.9 [facility] [place] [id number] [place] [address] 97584- 9432 Feb, [facility] [place] [id number] [place] [address] 95214- 2548 30 Jan, 2016 [facility] [place] [id number] [place] [address] 85739- 2540 Jan, [facility] [place] [address] [address]- 9161 Jan, [facility] [place] [id number] [place] [address] 42029- 9180 Jan, [facility] [place] [id number] [place] [address] 36474- 3731 Dec, Diabetes E11.9 ; Hypoxia R09.02 and Back pain M54.9 [facility] [place] [id number] [place] [address] 85952- 4073 Dec, [facility] [place] [id number] [place] [address] 44759- 5194 Nov, [facility] [place] [id number] [place] [address] 08866- 6296 Oct, Anxiety F41.9 [facility] [place] [id number] [place] [address] 29238- 0301 Oct, Back pain M54.9 [facility] [place] [id number] [place] [address] 49824- 8842 September, Back pain M54.9 [facility] [place] [id number] [place] [address] 30981- 7483 September, Diabetes E11.9 [facility] [place] [id number] [place] [address] 04894- 8678 September, [facility] [place] [id number] [place] [address] 81222- 9348 September, Diabetes E11.9 ; Insulin long-term use Z79.4 and Back pain M54.9 [facility] [place] [id number] [place] [address] 55177- 3151 Aug, Back pain M54.9 [facility] [place] [id number] [place] [address] 32361- 5754 Aug, Back pain M54.9 ; Anxiety F41.9 and Arthropathy, unspecified M12.9 [facility] [place] [id number] [address]- 7494 Jul, Back pain M54.9 [facility] [place] [id number] [place] [address] 75441- 8860 Jul, Anxiety F41.9 [facility] [place] [id number] [place] [address] 66453- 8238 Jul, Back pain M54.9 [facility] [place] [id number] [place] [address] 36063- 7834 Jul, [facility] [place] [address] 29700- 7905 Jul, [facility] [place] [id number] [place] [address] 44381- 3966 May, Back pain M54.9 ; Diabetes E11.9 ; Insulin long-term use Z79.4 ; COPD (chronic obstructive pulmonary disease) J44.9 and Hypertension I10 [facility] [place] [id number] [place] [address] 06402- 5845 May, Chronic pain G89.29 [facility] [place] [id number] [place] [address] 88966- 4037 Apr, [facility] [place] [id number] [place] [address] 73724- 8665 Apr, [facility] [place] [id number] [place] [address] 49933- 3849 Mar, [facility] [place] [id number] [place] [address] 54744- 9913 Mar, Encounter for immunization Z23 and Diabetes E11.9 [facility] [place] [id number] [place] [address] 61829- 4702 Feb, [facility] [place] [id number] [place] [address] 61361- 0739 Feb, [facility] [place] [id number] [place] [address]- 3185 Jan, [facility] [place] [address] [facility] [id number] [place] 5663 Jan, [facility] [place] [address] [facility] [id number] [place] [address]- 9846 Dec, [facility] [place] [id number] [place] [address]- 9143 Dec, [facility] [place] [id number] [place] [address]- 3882 Dec, Unspecified arthropathy, site unspecified 716.90 and Diabetes mellitus type 2, uncontrolled 250.02 [facility] [place] [address] [facility] [id number] [place] [address]- 2057 Dec, [facility] [place] [address] [address]- 0069 Nov, [facility] [place] [id number] [place] [address]- 0735 Oct, [facility] [place] [id number] [place] [address]- 8407 September, [facility] [place] [id number] [place] [address]- 3877 September, [facility] [place] [id number] [address]- 1856 September, [facility] [place] [id number] [address]- 3032 September, [facility] [place] [address] [id number] [place] [address]- 9552 14 Aug, 2014 [facility] [place] [address] [facility] [id number] [place]- 2659 Aug, [facility] [place] [id number] [place] [address]- 8351 Jul, [facility] [place] [facility] [address] [id number] [place] [address]- 6638 18 Jul, 2014 [facility] [place] [facility] [address] [id number] [place] [address]- 2044 16 Jul, 2014 [facility] [place] [facility] [address] [id number] [place] [address]- 0609 16 Jul, 2014 [facility] [place] [facility] [address] [id number] [place] [address]- 6570 16 Jul, 2014 [facility] [place] [facility] [address] [id number] [place] [address]- 7452 16 Jul, 2014 [facility] [place] [facility] [address] [id number] [place] [address]- 0307 16 Jul, 2014 [facility] [place] [facility] [address] [id number] [place] [address]- 2927 16 Jul, 2014 [facility] [place] [facility] [address] [id number] [place] [address]- 1217 16 Jul, 2014 [facility] [place] [facility] [address] [id number] [place] [address]- 3421 13 Jul, 2014 [facility] [place] [facility] [address] [id number] [place] [address]- 0608 13 Jul, 2014 [facility] [place] [facility] [address] [id number] [place] [address]- 7703 09 Jul, 2014 [facility] [place] [facility] [address] [id number] [place] [address]- 5231 09 Jul, 2014 [facility] [place] [facility] [address] [id number] [place] [address]- 0501 17 Jul, 2014 [facility] [place] [facility] [address] [id number] [place] [address]- 6916 17 Jul, 2014 [facility] [place] [facility] [address] [id number] [place] [address]- 6806 16 Jul, 2014 [facility] [place] [facility] [address] [id number] [place] [address]- 3657 16 Jul, 2014 [facility] [place] [facility] [address] [id number] [place] [address]- 8511 16 Jul, 2014 [facility] [place] [facility] [address] [id number] [place] 2846 16 Jul, 2014 [facility] [place] [facility] [address] [facility] [id number] [place] [address]- 7835 16 Jul, 2014 [facility] [place] [facility] [address] [id number] [place] [address]- 2985 16 Jul, 2014 [facility] [place] [facility] [address] [id number] [place] [address]- 1048 16 Jul, 2014 [facility] [place] [facility] [address] [id number] [place] [address]- 5224 16 Jul, 2014 [facility] [place] [facility] [address] [facility] [id number] [place] [address]- 8422 16 Jul, 2014 [facility] [place] [facility] [address] [id number] [place] [address]- 4529 Jul, 2014 [facility] [place] [facility] [address] [id number] [place] [address]- 3522 Jul, 2014 [facility] [place] [facility] [address] [facility] [id number] [place] [address]- 4984 16 Jul, 2014 [facility] [place] [facility] [address] [facility] [id number] [place] [address]- 3552 Jul, 2014 [facility] [place] [facility] [address] [facility] [id number] [place] 1528 Jul, 2014 [facility] [place] [facility] [address] [id number] [place] [address]- 3767 May, [facility] [place] [facility] [address] [id number] [place] [address]- 1036 May, [facility] [place] [facility] [address] [facility] [id number] [place] [address]- 7518 May, [facility] [place] [facility] [address] [id number] [place] [address]- 9353 May, [facility] [place] [facility] [address] [id number] [place] [address] May, [facility] [place] [facility] [address] [id number] [place] [address] May, [facility] [place] [facility] [address] [id number] [place] [address] May, [facility] [place] [facility] [address] [id number] [place] [address] May, [facility] [place] [facility] [address] [id number] [place] [address] May, [facility] [place] [facility] [address] [id number] [place] [address] May, [facility] [place] [facility] [address] [id number] [place] [address] Apr, [facility] [place] [facility] [address] [id number] [place] [address] Apr, [facility] [place] [facility] [address] [id number] [place] [address] Apr, [facility] [place] [facility] [address] [id number] [place] [address] Apr, [facility] [place] [facility] [address] [id number] [place] [address] Apr, [facility] [place] [facility] [address] [id number] [place] [address] Apr, [facility] [place] [facility] [address] [id number] [place] [address] Mar, [facility] [place] [facility] [address] [id number] [place] [address] Mar, [facility] [place] [facility] [address] [id number], [place] [address] Mar, [facility] [place] [facility] [address] [id number] [place] [address] Mar, [facility] [place] [facility] [address] [id number], [place] [address] Mar, [facility] [place] [facility] [address] [id number] [place] [address] Mar, [facility] [place] [facility] [address] [id number] [place] [address] Mar, [facility] [place] [facility] [address] [id number] [place] [address] Mar, [facility] [place] [facility] [address] [id number] [place] [address] Mar, [facility] [place] [facility] [address] [id number] [place] [address] Mar, [facility] [place] [facility] [address] [id number] [place] [address] Mar, [facility] [place] [facility] [address] [id number] [place] [address] Feb, [facility] [place] [facility] [address] [id number] [place] [address] 30 Feb, 2014 [facility] [place] [facility] [address] [id number], [place] [address] Feb, [facility] [place] [facility] [address] [id number], [place] [address] 15 Feb, 2014 [facility] [place] [facility] [address] [id number], [place] [address] Feb, [facility] [place] [facility] [address] [id number], [place] [address] Feb, [facility] [place] [facility] [address] [id number] [place] [address] Feb, [facility] [place] [facility] [address] [id number] [place] [address] Feb, [facility] [place] [facility] [address] [id number] [place] [address] Feb, [facility] [place] [facility] [address] [id number] [place] [address] Feb, [facility] [place] [facility] [address] [id number] [place] [address] Jan, [facility] [place] [facility] [address] [id number] [place] [address] Jan, [facility] [place] [facility] [address] [id number] [place] [address] Jan, [facility] [place] [facility] [address] [id number] [place] [address] Jan, [facility] [place] [facility] [address] [id number] [place] [address] Jan, [facility] [place] [facility] [address] [id number] [place] [address] Jan, [facility] [place] [facility] [address] [id number] [place] [address] Jan, [facility] [place] [facility] [address] [id number] [place] [address] Dec, [facility] [place] [facility] [address] [id number] [place] [address] Dec, [facility] [place] [facility] [address] [id number] [place] [address] Dec, [facility] [place] [facility] [address] [id number] [place] [address] Dec, [facility] [place] [facility] [address] [id number] [place] [address] Dec, [facility] [place] [facility] [address] [id number] [place] [address] Dec, [facility] [place] [facility] [address] [id number] [place] [address] Dec, [facility] [place] [facility] [address] [id number] [place] [address] Dec, [facility] [place] [facility] [address] [id number] [place] [address] Oct, [facility] [place] [facility] [address] [id number] [place] [address] Oct, [facility] [place] [facility] [address] [id number] [place] [address] September, [facility] [place] [facility] [address] [id number] [place] [address]- [address] September, [facility] [place] [facility] [address] [id number] [place] [address] September, [facility] [place] [facility] [address] [id number] [place] [address]- [address] September, [facility] [place] [facility] [address] [id number] [place] [address] September, [facility] [place] [facility] [address] [id number] [place] [address] September, [facility] [place] [facility] [address] [id number] [place] [address] September, [facility] [place] [facility] [address] [id number] [place] [address] Aug, [facility] [place] [facility] [address] [id number] [place] [address] Aug, [facility] [place] [facility] [address] [id number] [place] [address] Jul, [facility] [place] [facility] [address] [id number] [place] [address] Jul, [facility] [place] [facility] [address] [id number] [place] [address] 17 Jul, 2013 [facility] [place] [facility] [address] [id number] [place] [address] 17 Jul, 2013 [facility] [place] [facility] [address] [id number] [place] [address] 14 Jul, 2013 [facility] [place] [facility] [address] [id number] [place] [address] 14 Jul, 2013 [facility] [place] [facility] [address] [id number] [place] [address] 03 Jul, 2013 [facility] [place] [facility] [address] [id number] [place] [address] 03 Jul, 2013 [facility] [place] [facility] [address] [id number] [place] [address] 15 May, 2013 [facility] [place] [facility] [address] [id number] [place] [address]80 15 May, 2013 [facility] [place] [facility] [address] [id number] [place] [address] 7038 May, [facility] [place] [facility] [address] [id number] [place] [address] May, [facility] [place] [facility] [address] [id number] [place] [address] 18 Apr, 2013 [facility] [place] [facility] [address] [id number] [place] [address] Mar, [facility] [place] [facility] [address] [id number] [place] [address] 86[address] Mar, [facility] [place] [facility] [address] [id number] [place] [address]- [address]897 Mar, [facility] [place] [facility] [address] [id number] [place] [address] Mar, [facility] [place] [facility] [address] [id number] [place] [address] 1083 Mar, [facility] [place] [facility] [address] [id number] [place] [address] Mar, [facility] [place] [facility] [address] [id number] [place] [address]686 Mar, [facility] [place] [facility] [address] [id number] [place] [address] 76[address] Mar, [facility] [place] [facility] [address] [id number] [place] [address]327 Mar, [facility] [place] [facility] [address] [id number] [place] [address] 99[address] Mar, [facility] [place] [facility] [address] [id number] [place] [address] Mar, [facility] [place] [facility] [address] [id number] [place] [address] 1194 Mar, [facility] [place] [facility] [address] [id number], [place] [address] Feb, [facility] [place] [facility] [address] [id number] [place] [address] 6[address] Feb, [facility] [place] [facility] [address] [id number], [place] [address] Feb, [facility] [place] [facility] [address] [id number], [place] [address] Feb, [facility] [place] [facility] [address] [id number], [place] [address] Feb, [facility] [place] [facility] [address] [id number] [place] [address] 3416 Jan, [facility] [place] [facility] [address] [id number], [place] [address] Dec, [facility] [place] [facility] [address] [id number] [place] [address] 3517 Dec, [facility] [place] [facility] [address] [id number] [place] [address] 69[address] Dec, [facility] [address] [id number] [place] [address]261 Nov, [facility] [address] [id number] [place] [address] Nov, [facility] [address] [id number] [place] [address] 8490 Nov, [facility] [place] [facility] [address] [id number] [place] [address] 2650 Oct, [facility] [address] [id number] [place] [address] 5[address] Oct, [facility] [address] [id number] [place] [address]- 4583 Oct, [facility] [address] [id number] [place] [address] 9346 September, [facility] [address] [id number] [place] [address] September, [facility] [address] [id number] [place] [address] 0751 September, [facility] [address] [id number] [place] [address] 5616 September, [facility] [address] [id number] [place] [address]- 8262 September, [facility] [place] [facility] [address] [id number] [place] [address]- 4519 Aug, [facility] [place] [facility] [address] [id number] [place] [address]- 9391 Aug, [facility] [place] [facility] [address] [id number] [place] [address]- 7603 Aug, [facility] [place] [facility] [address] [id number] [place] [address]- 5675 Jul, [facility] [place] [facility] [address] [id number] [place] [address]- 2521 Jul, [facility] [address] [id number] [place] [address] 5233 Jul, [facility] [address] [id number] [place] [address]- 2950 Jul, [facility] [address] [id number] [place] [address] 0239 Jul, [facility] [address] [id number] [place] [address] 8113 Jul, [facility] [address] [id number] [place] [address] 2924 Jul, [facility] [address] [id number] [place] [address]35 May, [facility] [address] [id number] [place] [address] 0429 May, [facility] [address] [id number] [place] [address] 9807 May, [facility] [address] [id number] [place] [address]- [address]35 Apr, [facility] [address] [id number] [place] [address]- 6707 Apr, [facility] [address] [id number] [place] [address]- 3626 Apr, [facility] [place] [facility] [address] [id number] [place] [address]- 1675 Apr, [facility] [place] [facility] [address] [id number] [place] [address]- 3746 Apr, [facility] [place] [facility] [address] [id number] [place] [address]- 7340 29 Mar, 2012 [facility] [address] [id number] [place] [address]- 4870 Mar, [facility] [place] [facility] [address] [id number] [place] [address]- 6219 Mar, [facility] [place] [facility] [address] [id number] [place] [address]- 5956 Mar, [facility] [place] [facility] [address] [id number] [place] [address]- 6366 Feb, [facility] [place] [facility] [address] [id number] [place] [address]- 9242 Feb, [facility] [place] [facility] [address] [id number] [place] [address]- 7599 Feb, [facility] [place] [facility] [address] [id number] [place] [address]- 0614 Feb, [facility] [place] [facility] [address] [id number] [place] [address]- 9214 Feb, [facility] [place] [facility] [address] [id number] [place] [address]- 6654 Jan, [facility] [place] [facility] [address] [id number] [place] [address]- 7607 Dec, [facility] [place] [facility] [address] [id number] [place] [address]- 5208 Dec, [facility] [place] [facility] [address] [id number] [place] [address]- 7545 Dec, [facility] [place] [facility] [address] [id number] [place] [address]- 1523 Nov, [facility] [place] [facility] [address] [id number] [place] [address]- 2355 Nov, [facility] [place] [facility] [address] [id number] [place] [address]- 1818 Nov, [facility] [place] [facility] [address] [id number] [place] [address]- 9625 Oct, [facility] [place] [facility] [address] [id number] [place] [address]- 2005 19 Oct, 2011 [facility] [address] [id number] [place] [address]- 5526 18 Oct, 2011 [facility] [place] [facility] [address] [id number] [place] [address]- 6236 Oct, [facility] [address] [id number] [place] [address]- 5064 September, [facility] [address] [id number] [place] [address]- 2026 September, [facility] [address] [id number] [place] [address]- 3378 30 Aug, 2011 [facility] [address] [id number] [place] [address]- 4225 Aug, [facility] [address] [id number] [place] [address]- 2408 Aug, [facility] [address] [id number] [place] [address]- 7158 Aug, [facility] [address] [id number] [place] [address]- 2795 Aug, [facility] [address] [id number] [place] [address]- 1170 Aug, [facility] [address] [id number] [place] [address]- 3003 Aug, [facility] [address] [id number] [place] [address]- 5333 Jul, [facility] [place] [facility] [address] [id number] [place] [address]- 8204 Jul, [facility] [place] [facility] [address] [id number] [place] [address]- 5056 14 Jul, 2011 [facility] [place] [facility] [address] [id number] [place] [address]- 8846 May, [facility] [place] [address] [facility] [id number], [place] [address]- 7199 May, [facility] [place] [address] [facility] [id number], [place] [address]- 4276 May, [facility] [place] [address] [facility] [id number][place] [address]49 Apr, [facility] [place] [address] [facility] [id number], [place] [address]- 7095 Apr, [facility] [place] [address] [facility] [id number], [place] [address]- 6582 Mar, [facility] [place] [address] [facility] [id number], [place] [address]- 8520 Mar, [facility] [place] [id number], [place] [address]- 30[address] Mar, [facility] [place] [id number], [place] [address]- 6407 Mar, [facility] [place] [address] [facility] [id number], [place] [address]- 7595 Mar, [facility] [place] [id number], [place] [address]- 3061 Mar, [facility] [place] [address] [id number], [place] [address]- 5529 Feb, [facility] [place] [address] [id number], [place] [address]- 6429 Feb, [facility] [place] [address] [id number], [place] [address]- 7921 Feb, IMMUNIZATIONS No Known Immunizations SOCIAL HISTORY Never Assessed REASON FOR VISIT Medication refill request PLAN OF CARE VITAL SIGNS MEDICATIONS Medication Instructions Dosage Frequency Start Date End Date Duration Status Remeron 30 mg TAKE ONE TABLET BY MOUTH EVERY NIGHT AT BEDTIME 90 Active RESULTS No Results PROCEDURES No Known [...]
--- OUTSIDE RECORDS SUMMARY | 2018-05-16 06:55 | XMS REPORT ---
Author Author FERNY SILVERIO Organization [facility] Address [address] [place] [address] Care Team Providers Care Appeals Nurse Name Role Phone FERNY SILVERIO Unavailable PROBLEMS Type Condition ICD9-CM Code GDI25-UH Code Onset Dates Condition Status SNOMED Code Problem Hypoxia R09.02 Active 354893735 Problem Port catheter in place Z95.828 Active 424669421 Problem Anxiety F41.9 Active 05253524 Problem Type 2 diabetes mellitus with diabetic peripheral angiopathy without gangrene E11.51 Active 637460625 Problem Pressure ulcer of other site, stage 3 L89.893 Active 436672912 Problem Lumbar radiculopathy, chronic M54.16 Active 229609630 Problem PAD (peripheral artery disease) I73.9 Active 559305753 Problem 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 Active 503803422 Problem Recurrent major depressive disorder, in full remission F33.42 Active 460871826 Problem Diabetes E11.9 Active 61972349 Problem Hypertension I10 Active 77399507 Problem Back pain M54.9 Active 356256180 Problem Insulin long-term use Z79.4 Active 955312523 Problem COPD (chronic obstructive pulmonary disease) J44.9 Active 94920928 ALLERGIES No Known Allergies ENCOUNTERS Encounter Location Date Diagnosis [facility] [id number] [place] [address] 43937- 5204 Jan, Back pain M54.9 and Anxiety F41.9 [facility] [id number] [place] [address] 25257- 5184 Jan, [facility] [id number] [place] [address] 53582- 9429 Dec, [facility] [id number] [place] [address] 46299- 8259 Dec, Back pain M54.9 and Anxiety F41.9 [facility] [id number] [place] [address] 24536- 6026 Dec, Diabetes E11.9 ; Type 2 diabetes mellitus with diabetic peripheral angiopathy without gangrene E11.51 ; Lumbar radiculopathy, chronic M54.16 ; COPD (chronic obstructive pulmonary disease) J44.9 and Anxiety F41.9 [facility] [id number] [place] [address] 80740- 3278 Dec, Back pain M54.9 and Anxiety F41.9 [facility] [id number] [place] [address] 10131- 0418 Nov, Back pain M54.9 and Anxiety F41.9 [place] [id number] [place] [address] 72759- 5568 Oct, [place] [id number] [place] [address] 85255- 9165 Oct, Back pain M54.9 and Anxiety F41.9 [facility] [id number] [place] [address] 54448- 5979 September, Anxiety F41.9 and Back pain M54.9 [facility] [id number] [place] [address] 51888- 5628 September, Diabetes E11.9 ; Hypertension I10 ; COPD (chronic obstructive pulmonary disease) J44.9 and Lumbar radiculopathy, chronic M54.16 [facility] [id number] [place] [address] 10323- 1185 September, Anxiety F41.9 [facility] [id number] [place] [address] 50377- 3355 Aug, [facility] [id number] [place] [address] 55770- 8694 Aug, [facility] [id number] [place] [address] 27023- 6842 Aug, Anxiety F41.9 and Back pain M54.9 [facility] [id number] [place] [address] 24840- 6830 Aug, Medicare annual wellness visit, initial Z00.00 [...] peripheral angiopathy without gangrene E11.51 and 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 [place] [address] 29614- 6943 Jul, Back pain M54.9 [place] [address] 12185- 1486 Jul, [facility] [address] 95911- 9328 Jul, Anxiety F41.9 and Back pain M54.9 [place] [id number] [place] [address] 76125- 4800 Jul, Diabetes E11.9 [facility] [id number] [place] [address] 34134- 4615 May, [facility] [id number] [place] [address] 04106- 1744 May, Diabetes E11.9 ; Anxiety F41.9 ; Back pain M54.9 and COPD ( chronic obstructive pulmonary disease) J44.9 [facility] [id number] [place] [address] 51312- 4771 May, Back pain M54.9 [facility] [id number] [place] [address] 28626- 8103 May, [facility] [id number] [place] [address] 69515- 7382 Apr, Back pain M54.9 [facility] [id number] [place] [address] 18892- 1935 30 Mar, 2017 Back pain M54.9 [facility] [id number] [place] [address] 81227- 7438 20 Mar, 2017 [facility] [id number] [place] [address] 19371- 4899 16 Mar, 2017 [facility] [id number] [place] [address] 47469- 5487 14 Mar, 2017 Radiculopathy of lumbar region M54.16 [facility] [address] 28204- 9581 13 Mar, 2017 [facility] [id number] [place] [address] 47290- 3894 07 Mar, 2017 Encounter for immunization Z23 and Lumbar radiculopathy, chronic M54.16 [facility] [id number] [place] [address] 98652- 6101 Mar, Back pain M54.9 and Anxiety F41.9 [facility] [id number] [place] [address] 97766 -9468 10 Feb, 2017 Acute bilateral low back pain with left-sided sciatica M54.42 and Acute bilateral low back pain with right-sided sciatica M54.41 [facility] [id number] [place] [address] 48328- 4139 Feb, [facility] [id number] [place] [address] 69825- 5536 Feb, Back pain M54.9 [facility] [id number] [place] [address] 12371- 4314 05 Jan, 2017 Back pain M54.9 and Anxiety F41.9 [facility] [id number] [place] [address] 29505- 4588 05 Jan, 2017 Diabetes E11.9 [facility] [id number] [place] [address] 60234- 0346 14 Dec, 2016 Diabetes E11.9 ; Back pain M54.9 ; Anxiety F41.9 and Insulin long-term use Z79.4 [facility] [id number] [place] [address] 40059- 7711 09 Dec, 2016 Anxiety F41.9 [facility] [address] 34671- 7158 Dec, Back pain M54.9 [facility] [address] 54921- 8900 Nov, Back pain M54.9 [facility] [address] 39094- 8731 Oct, Back pain M54.9 and Anxiety F41.9 [place] [address] 48312- 1954 September, Back pain M54.9 [facility] [id number] [place] [address] 11581- 7873 September, Back pain M54.9 and Anxiety F41.9 [facility] [id number] [place] [address] 33353- 5166 Aug, Diabetes E11.9 ; Anxiety F41.9 ; Back pain M54.9 and PAD ( peripheral artery disease) I73.9 [facility] [id number] [place] [address] 36911- 3237 Aug, Anxiety F41.9 [facility] [id number] [place] [address] 65047- 8427 Aug, Back pain M54.9 [facility] [id number] [place] [address] 49439- 9134 23 Jul, 2016 Back pain M54.9 [facility] [id number] [place] [address] 54401- 4798 Jul, Back pain M54.9 [facility] [id number] [place] [address] 10904- 2351 Jul, Back pain M54.9 [facility] [address] 50897- 9226 16 Jul, 2016 Dorsalgia M54.9 [facility] [address] 79924- 9556 Jul, [facility] [address] 03442- 8792 May, Back pain M54.9 [facility] [address] 73557- 2045 May, Diabetes E11.9 ; Anxiety F41.9 ; Port catheter in place Z95.828 ; Encounter for immunization Z23 and Insulin long-term use Z79.4 [facility] [address] 30052- 4944 Apr, Back pain M54.9 [facility] [address] 47456- 7582 Apr, Back pain M54.9 [facility] [address] 17922- 4967 Apr, [facility] [id number] [place] [address] 13643- 1906 Apr, Back pain M54.9 [facility] [address] 47757- 4341 Mar, COPD (chronic obstructive pulmonary disease) J44.9 [facility] [address] 50706- 1004 Feb, [facility] [id number] [place] [address] 01965- 2543 30 Jan, 2016 [facility] [address] 32576- 1012 Jan, [facility] [address] [address]- 6704 Jan, [facility] [id number] [place] [address] 35957- 3315 Jan, [facility] [id number] [place] [address] 63256- 1432 Dec, Diabetes E11.9 ; Hypoxia R09.02 and Back pain M54.9 [facility] [id number] [place] [address] 51476- 1113 Dec, [facility] [id number] [place] [address] 37099- 6566 Nov, [facility] [id number] [place] [address] 60251- 0501 Oct, Anxiety F41.9 [facility] [id number] [place] [address] 00377- 3514 Oct, Back pain M54.9 [facility] [id number] [place] [address] 44856- 0589 September, Back pain M54.9 [facility] [id number] [place] [address] 79867- 3497 September, Diabetes E11.9 [facility] [id number] [place] [address] 46595- 3468 September, [facility] [address] [place] [address] 26865- 1212 September, Diabetes E11.9 ; Insulin long-term use Z79.4 and Back pain M54.9 [facility] [id number] [place] [address] 93528- 4499 Aug, Back pain M54.9 [facility] [address] [place] [address] 41120- 3160 Aug, Back pain M54.9 ; Anxiety F41.9 and Arthropathy, unspecified M12.9 [facility] [id number] [place] [address] 60938- 1635 Jul, Back pain M54.9 [facility] [id number] [place] [address] 01358- 7376 Jul, Anxiety F41.9 [facility] [id number] [place] [address] 52678- 8415 Jul, Back pain M54.9 [facility] [id number] [place] [address] 38213- 3647 Jul, [facility] [address] 22722- 9694 Jul, [facility] [id number] [place] [address] 82434- 2425 May, Back pain M54.9 ; Diabetes E11.9 ; Insulin long-term use Z79.4 ; COPD (chronic obstructive pulmonary disease) J44.9 and Hypertension I10 [facility] [id number] [place] [address] 00043- 1235 May, Chronic pain G89.29 [facility] [id number] [place] [address] 38280- 4818 Apr, [facility] [id number] [place] [address] 61716- 2074 Apr, [facility] [id number] [place] [address] 53974- 5079 Mar, [facility] [id number] [place] [address] 64657- 9126 Mar, Encounter for immunization Z23 and Diabetes E11.9 [facility] [id number] [place] [address] 97162- 2592 Feb, [facility] [id number] [place] [address] 77455- 0093 Feb, [facility] [id number] [place] [address]- 2243 Jan, [facility] [address] [facility] [id number] [place] [address]- 3146 Jan, [facility] [address] [facility] [id number] [place] [address]- 7755 Dec, [facility] [id number] [place] [address]- 0496 Dec, [facility] [address] [place] [address]- 6467 Dec, Unspecified arthropathy, site unspecified 716.90 and Diabetes mellitus type 2, uncontrolled 250.02 [facility] [address] [place] [address]- 1565 Dec, [facility] [address] [address]- 3036 Nov, [facility] [address] [address]- 7572 Oct, [facility] [address] [place] [address]- 0781 September, [facility] [address] [place] [address]- 8115 September, [facility] [id number] [address]- 2726 September, [facility] [id number] [address]- 5366 September, [facility] [id number] [place] [address]- 2963 Aug, [facility] [address] [facility] [id number] [place] [address]- 4732 Aug, [facility] [id number] [place] [address]- 1391 Jul, [facility] [place] [facility] [address] [id number] [place] [address]- 0678 18 Jul, 2014 [facility] [place] [facility] [address] [id number] [place] [address]- 6440 16 Jul, 2014 [facility] [place] [facility] [address] [id number] [place] 5769 16 Jul, 2014 [facility] [place] [facility] [address] [id number] [place] [address]- 9186 16 Jul, 2014 [facility] [place] [facility] [address] [id number] [place] [address]- 0611 16 Jul, 2014 [facility] [place] [facility] [address] [id number] [place] [address]- 7519 16 Jul, 2014 [facility] [place] [facility] [address] [id number] [place] [address]- 1449 16 Jul, 2014 [facility] [place] [facility] [address] [id number] [place] [address]- 6442 16 Jul, 2014 [facility] [place] [facility] [address] [id number] [place] [address]- 2316 13 Jul, 2014 [facility] [place] [facility] [address] [id number] [place] [address]- 0790 13 Jul, 2014 [facility] [place] [facility] [address] [id number] [place] [address]- 9166 09 Jul, 2014 [facility] [place] [facility] [address] [id number] [place] [address]- 5641 09 Jul, 2014 [facility] [place] [facility] [address] [id number] [place] [address]- 3697 17 Jul, 2014 [facility] [place] [facility] [address] [id number] [place] [address]- 9904 17 Jul, 2014 [facility] [place] [facility] [address] [id number] [place] [address]- 1856 16 Jul, 2014 [facility] [place] [facility] [address] [id number] [place] [address]- 3954 16 Jul, 2014 [facility] [place] [facility] [address] [id number] [place] [address]- 7102 16 Jul, 2014 [facility] [place] [facility] [address] [id number] [place] 1606 16 Jul, 2014 [facility] [place] [facility] [address] [id number] [place] [address]- 5807 16 Jul, 2014 [facility] [place] [facility] [address] [id number] [place] [address]- 4118 16 Jul, 2014 [facility] [place] [facility] [address] [id number] [place] [address]- 9592 16 Jul, 2014 [facility] [place] [facility] [address] [id number] [place] [address]- 7450 16 Jul, 2014 [facility] [place] [facility] [address] [id number] [place] [address]- 5032 16 Jul, 2014 [facility] [place] [facility] [address] [id number] [place] [address]- 8226 Jul, 2014 [facility] [place] [facility] [address] [id number] [place] [address]- 6633 Jul, 2014 [facility] [place] [facility] [address] [facility] [id number] [place] [address]- 4450 16 Jul, 2014 [facility] [place] [facility] [address] [id number] [place] [address]- 2590 Jul, 2014 [facility] [place] [facility] [address] [id number] [place] [address]- 0094 Jul, 2014 [facility] [place] [facility] [address] [id number] [place] 1725 May, [facility] [place] [facility] [address] [id number] [place] [address]- 9476 May, [facility] [place] [facility] [address] [id number] [place] 2526 May, [facility] [place] [facility] [address] [id number] [place] [address]- 4613 May, [facility] [place] [facility] [address] [id number] [place] [address]- 9832 May, [facility] [place] [facility] [address] [id number] [place] [address]- 5758 May, [facility] [place] [facility] [address] [id number] [place] [address]- 7801 May, [facility] [place] [facility] [address] [id number] [place] [address]- 8726 May, [facility] [place] [facility] [address] [id number] [place] [address]- 1667 May, [facility] [place] [facility] [address] [id number] [place] [address]- 9913 May, [facility] [place] [facility] [address] [id number] [place] [address]- 0763 Apr, [facility] [place] [facility] [address] [id number] [place] [address]- 4274 Apr, [facility] [place] [facility] [address] [id number] [place] [address]- 0329 Apr, [facility] [place] [facility] [address] [id number] [place] [address]- 2020 Apr, [facility] [place] [facility] [address] [id number] [place] [address]- 9796 Apr, [facility] [place] [facility] [address] [id number] [place] [address]- 2581 Apr, [facility] [place] [facility] [address] [id number] [place] [address]- 1856 Mar, [facility] [place] [facility] [address] [id number] [place] [address]- 8906 Mar, [facility] [place] [facility] [address] [id number], [place] [address]- 2069 Mar, [facility] [place] [facility] [address] [id number] [place] [address]- 6811 Mar, [facility] [place] [facility] [address] [id number] [place] [address]- 5848 Mar, [facility] [place] [facility] [address] [id number] [place] [address]- 5599 Mar, [facility] [place] [facility] [address] [id number] [place] [address]- 6428 Mar, [facility] [place] [facility] [address] [id number] [place] [address] Mar, [facility] [place] [facility] [address] [id number] [place] [address] Mar, [facility] [place] [facility] [address] [facility] [id number] [place] [address] Mar, [facility] [place] [facility] [address] [id number] [place] [address] Mar, [facility] [place] [facility] [address] [facility] [id number] [place] [address] Feb, [facility] [place] [facility] [address] [facility] [id number] [place] [address] 30 Feb, 2014 [facility] [place] [facility] [address] [id number], [place] [address] 15 Feb, 2014 [facility] [place] [facility] [address] [id number], [place] [address] 15 Feb, 2014 [facility] [place] [facility] [address] [id number], [place] [address] Feb, [facility] [place] [facility] [address] [id number], [place] [address] Feb, [facility] [place] [facility] [address] [facility] [id number], [place] [address] Feb, [facility] [place] [facility] [address] [id number] [place] [address] Feb, [facility] [place] [facility] [address] [id number] [place] [address] Feb, [facility] [place] [facility] [address] [id number] [place] [address] Feb, [facility] [place] [facility] [address] [id number] [place] [address] Jan, [facility] [place] [facility] [address] [id number] [place] [address] Jan, [facility] [place] [facility] [address] [id number] [place] [address] Jan, [facility] [place] [facility] [address] [id number] [place] [address] Jan, [facility] [place] [facility] [address] [id number] [place] [address] Jan, [facility] [place] [facility] [address] [id number] [place] [address] Jan, [facility] [place] [facility] [address] [id number] [place] [address] Jan, [facility] [place] [facility] [address] [id number] [place] [address]- [address] Dec, [facility] [place] [facility] [address] [id number] [place] [address] Dec, [facility] [place] [facility] [address] [id number] [place] [address] Dec, [facility] [place] [facility] [address] [id number] [place] [address] Dec, [facility] [place] [facility] [address] [id number] [place] [address] Dec, [facility] [place] [facility] [address] [id number] [place] [address]- [address] Dec, [facility] [place] [facility] [address] [id number] [place] [address] Dec, [facility] [place] [facility] [address] [id number] [place] [address] Dec, [facility] [place] [facility] [address] [id number] [place] [address] Oct, [facility] [place] [facility] [address] [id number] [place] [address] Oct, [facility] [place] [facility] [address] [id number] [place] [address] September, [facility] [place] [facility] [address] [id number] [place] [address] September, [facility] [place] [facility] [address] [id number] [place] [address] September, [facility] [place] [facility] [address] [id number] [place] [address] September, [facility] [place] [facility] [address] [id number] [place] [address] September, [facility] [place] [facility] [address] [id number] [place] [address] September, [facility] [place] [facility] [address] [id number] [place] [address]- [address] September, [facility] [place] [facility] [address] [id number] [place] [address] Aug, [facility] [place] [facility] [address] [id number] [place] [address] Aug, [facility] [place] [facility] [address] [id number] [place] [address] Jul, [facility] [place] [facility] [address] [id number] [place] [address]- [address] Jul, [facility] [place] [facility] [address] [id number] [place] [address] 17 Jul, 2013 [facility] [place] [facility] [address] [id number] [place] [address] 17 Jul, 2013 [facility] [place] [facility] [address] [id number] [place] [address]- [address] 14 Jul, 2013 [facility] [place] [facility] [address] [id number] [place] [address]- [address] 14 Jul, 2013 [facility] [place] [facility] [address] [id number] [place] [address] 03 Jul, 2013 [facility] [place] [facility] [address] [id number] [place] [address] 03 Jul, 2013 [facility] [place] [facility] [address] [id number] [place] [address] 15 May, 2013 [facility] [place] [facility] [address] [id number] [place] [address] 15 May, 2013 [facility] [place] [facility] [address] [id number] [place] [address] May, [facility] [place] [facility] [address] [facility] [id number] [place] [address] 65[address] May, [facility] [place] [facility] [address] [facility] [id number] [place] [address] 18 Apr, 2013 [facility] [place] [facility] [address] [id number] [place] [address] Mar, [facility] [place] [facility] [address] [id number] [place] [address] Mar, [facility] [place] [facility] [address] [id number] [place] [address] Mar, [facility] [place] [facility] [address] [id number] [place] [address] Mar, [facility] [place] [facility] [address] [facility] [id number] [place] [address] 38[address] Mar, [facility] [place] [facility] [address] [id number] [place] [address] Mar, [facility] [place] [facility] [address] [id number] [place] [address] Mar, [facility] [place] [facility] [address] [id number] [place] [address] Mar, [facility] [place] [facility] [address] [id number] [place] [address] Mar, [facility] [place] [facility] [address] [id number] [place] [address] Mar, [facility] [place] [facility] [address] [id number] [place] [address] Mar, [facility] [place] [facility] [address] [id number] [place] [address] Mar, [facility] [place] [facility] [address] [id number], [place] [address] Feb, [facility] [place] [facility] [address] [id number] [place] [address] Feb, [facility] [place] [facility] [address] [id number], [place] [address] Feb, [facility] [place] [facility] [address] [id number], [place] [address] Feb, [facility] [place] [facility] [address] [id number], [place] [address] Feb, [facility] [place] [facility] [address] [id number] [place] [address] 24[address] Jan, [facility] [place] [facility] [address] [id number], [place] [address] Dec, [facility] [place] [facility] [address] [id number] [place] [address] Dec, [facility] [place] [facility] [address] [id number] [place] [address] Dec, [facility] [address] [id number] [place] [address] Nov, [facility] [address] [id number] [place] [address]178 Nov, [facility] [address] [id number] [place] [address] 1428 Nov, [facility] [address] [id number] [place] [address] Oct, [facility] [address] [id number] [place] [address] 4410 Oct, [facility] [address] [id number] [place] [address] 0255 Oct, [facility] [address] [id number] [place] [address] September, [facility] [address] [id number] [place] [address] September, [facility] [address] [id number] [place] [address] 73[address] September, [facility] [address] [id number] [place] [address]- [address] September, [facility] [address] [id number] [place] [address]642 September, [facility] [address] [id number] [place] [address]30 Aug, [facility] [place] [facility] [address] [id number] [place] [address]69 Aug, [facility] [place] [facility] [address] [id number] [place] [address] 269[address] Aug, [facility] [address] [id number] [place] [address] Jul, [facility] [address] [id number] [place] [address] 26 Jul, 2012 [facility] [address] [id number] [place] [address] 8203 25 Jul, 2012 [facility] [place] [facility] [address] [id number] [place] [address] 1389 Jul, [facility] [address] [id number] [place] [address] 9393 Jul, [facility] [address] [id number] [place] [address] 9777 Jul, [facility] [address] [id number] [place] [address] 5[address] Jul, [facility] [address] [id number] [place] [address] 75[address] May, [facility] [address] [id number] [place] [address]- 8251 May, [facility] [address] [id number] [place] [address] 5805 May, [facility] [address] [id number] [place] [address] 3164 Apr, [facility] [address] [id number] [place] [address] 5133 Apr, [facility] [address] [id number] [place] [address] 5114 Apr, [facility] [place] [facility] [address] [id number] [place] [address] 9009 Apr, [facility] [place] [facility] [address] [id number] [place] [address]- 7616 Apr, [facility] [place] [facility] [address] [id number] [place] [address] 7207 29 Mar, 2012 [facility] [address] [id number], [place] [address] Mar, [facility] [place] [facility] [address] [id number] [place] [address]- 7810 Mar, [facility] [place] [facility] [address] [id number] [place] [address]- 8164 Mar, [facility] [place] [facility] [address] [id number] [place] [address]- 7087 Feb, [facility] [place] [facility] [address] [id number] [place] [address]- 4328 Feb, [facility] [place] [facility] [address] [id number] [place] [address]- 6310 Feb, [facility] [place] [facility] [address] [id number] [place] [address]- 9357 Feb, [facility] [place] [facility] [address] [id number] [place] [address]- 5048 Feb, [facility] [place] [facility] [address] [id number] [place] [address]- 3978 Jan, [facility] [place] [facility] [address] [id number] [place] [address]- 0817 Dec, [facility] [place] [facility] [address] [id number] [place] [address]- 7351 Dec, [facility] [place] [facility] [address] [id number], [place] [address]16 Dec, [facility] [place] [facility] [address] [id number] [place] [address]- 2695 Nov, [facility] [place] [facility] [address] [id number] [place] [address]- 9264 Nov, [facility] [place] [facility] [address] [id number] [place] [address]- 3136 Nov, [facility] [place] [facility] [address] [id number] [place] [address]- 0451 Oct, [facility] [place] [facility] [address] [id number] [place] [address]- 2866 19 Oct, 2011 [facility] [address] [id number] [place] [address]- 3300 18 Oct, 2011 [facility] [place] [facility] [address] [id number] [place] [address] 2546 Oct, [facility] [address] [id number] [place] [address]- 3609 September, [facility] [address] [id number] [place] [address]- 5151 September, [facility] [address] [id number] [place] [address]- 4526 30 Aug, 2011 [facility] [address] [id number] [place] [address]- 9446 Aug, [facility] [address] [id number] [place] [address]- 2528 Aug, [facility] [address] [id number] [place] [address]- 3790 Aug, [facility] [address] [id number] [place] [address]- 0024 Aug, [facility] [address] [id number] [place] [address]- 0255 Aug, [facility] [address] [id number] [place] [address]- 7339 Aug, [facility] [address] [id number] [place] [address]- 5476 Jul, [facility] [place] [facility] [address] [id number] [place] [address]- 6553 Jul, [facility] [place] [facility] [address] [id number] [place] [address]- 9216 14 Jul, 2011 [facility] [place] [facility] [address] [id number] [place] [address]- 6532 May, [facility] [address], [place] [address] May, [facility] [address], [place] [address] 4634 May, [facility] [address], [place] [address] 5917 Apr, [facility] [address], [place] [address] 6778 Apr, [facility] [address] [id number] [address] Mar, [facility] [id number] [place] [address]- 0760 Mar, [facility] [address] [id number], [place] [address] 7329 Mar, [facility] [id number], [place] [address]- 5972 Mar, [facility] [id number] [address] Mar, [facility] [address], [place] [address] 4290 Mar, [facility] [address] [address] Feb, [facility] [address], [place] [address] 0280 Feb, [facility] [address] [id number] [address] Feb, IMMUNIZATIONS No Known Immunizations SOCIAL HISTORY Never Assessed REASON FOR VISIT 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)-KORY serna, Will need PDM PLAN OF CARE Activity Details Follow Up 3 Months Reason: VITAL SIGNS Height 72 in 2018-01-10 Weight 258.0 lbs 2018-01-10 Temperature 98.6 degrees Fahrenheit 2018-01-10 Heart Rate 99 bpm 2018-01-10 Respiratory Rate 20 2018-01-10 Oximetry on room air:94 % 2018-01-10 BMI 34.99 kg/m2 2018-01-10 Blood pressure systolic 128 mmHg 2018-01-10 Blood pressure diastolic 68 mmHg 2018-01-10 MEDICATIONS Medication Instructions Dosage Frequency Start Date End Date Duration Status AgaMatrix Presto Test - TEST BLOOD SUGAR TWO TIMES A DAY . E11.9 50 Active NovoLog Flexpen 100 UNIT/ML Subcutaneous 3 times a day with meals 30 units May, Active Metformin HCl 1,000 TAKE ONE TABLET BY MOUTH WITH MORNING AND WITH EVENING MEALS TWO TIMES A DAY 90 Active Amlodipine Besylate 10 MG TAKE ONE TABLET BY MOUTH ONCE DAILY 30 Active Blood Glucose Test Strip as directed Mar, Active Atorvastatin Calcium 40 MG TAKE ONE TABLET BY MOUTH ONCE DAILY 30 Active Insulin Detemir 100 UNIT/ML Subcutaneous at bedtime 120 u Aug, Active Lyrica 225 mg Orally Twice a day 1 capsule 12h 30 Active Cymbalta 60 TAKE ONE CAPSULE BY MOUTH ONCE A DAY 90 Active Lopid 600 TAKE ONE TABLET BY MOUTH TWICE A DAY 90 Active MS Contin 30 MG Orally every 8 hours 1 tablet 8h Dec, 28 days Active Xanax 1 MG Orally TID PRN 1 tablet May, Active Bactrim DS 800-160 MG Orally Twice a day 1 tablet 12h Active Tresiba FlexTouch 200 UNIT/ML Subcutaneous Once a day 160 u 24h Dec, Active Remeron 30 TAKE ONE TABLET BY MOUTH EVERY NIGHT AT BEDTIME 90 Active Celexa 40 TAKE ONE TABLET BY MOUTH DAILY 30 Active Hydrocodone-Acetaminophen 10-325 MG Orally every 6 hrs 1 tablet as needed 6h Dec, 28 days Active Albuterol Sulfate (2.5 MG/3ML) 0.083% Inhalation Three times a day 3 ml 8h May, Active Oxygen 2 LPM inhalation at night while sleeping Active Soma 350 mg Orally Once a day 1 tablet as needed 24h Active RESULTS Name Result Date Reference Range A1C (IN HOUSE) 2018-01-10 A1C IN HOUSE 8.0 4.3 - 5.6 % Previous A1c 8.1 Lot [id number] Exp date 07/2019 PROCEDURES Procedure Date Ordered Result Body Site GLYCATED HEMOGLOBIN TEST Jan 10, 2018 INSTRUCTIONS MEDICATIONS ADMINISTERED No Known Medications MEDICAL [...]
[2018-05-16] MEDS ORDERED: morphine INJ 10 MG/ML 1ML (SYR OR VIAL) IVP STA (06:56)
--- OUTSIDE RECORDS SUMMARY | 2018-05-16 06:56 | XMS REPORT ---
Author Author FERNY SILVERIO [facility] Address [address] [place] [address] Care Team Providers Care Php Lamp Developer Name Role Phone FERNY SILVERIO Unavailable PROBLEMS Type Condition ICD9-CM Code PPM16-BD Code Onset Dates Condition Status SNOMED Code Problem Hypoxia R09.02 Active 610230732 Problem Port catheter in place Z95.828 Active 536300463 Problem Anxiety F41.9 Active 76905387 Problem Type 2 diabetes mellitus with diabetic peripheral angiopathy without gangrene E11.51 Active 688596774 Problem Pressure ulcer of other site, stage 3 L89.893 Active 162378982 Problem Lumbar radiculopathy, chronic M54.16 Active 738678562 Problem PAD (peripheral artery disease) I73.9 Active 599839013 Problem meterman current use of insulin Z79.4 Active 549782852 Problem Recurrent major depressive disorder, in full remission F33.42 Active 363563589 Problem Diabetes E11.9 Active 11098165 Problem Hypertension I10 Active 60681762 Problem Back pain M54.9 Active 518519598 Problem Insulin long-term use Z79.4 Active 265544710 Problem COPD (chronic obstructive pulmonary disease) J44.9 Active 87788356 ALLERGIES No Information ENCOUNTERS Encounter Location Date Diagnosis [facility] [id number] [address] Dec, [facility] [address], [place] [address] Dec, [place] [address] [id number] [address] Dec, Diabetes E11.9 ; Type 2 diabetes mellitus with diabetic peripheral angiopathy without gangrene E11.51 ; Lumbar radiculopathy, chronic M54.16 ; COPD (chronic obstructive pulmonary disease) J44.9 and Anxiety F41.9 [facility] [id number] [place] [address] 72114- 7542 Dec, Back pain M54.9 and Anxiety F41.9 [facility] [address] [place] [address] 99499- 4827 Nov, Back pain M54.9 and Anxiety F41.9 [place] [address] [place] [address] 14575- 0366 Oct, [facility] [address] [place] [address] 35577- 0107 Oct, Back pain M54.9 and Anxiety F41.9 [place] [address] [place] [address] 41122- 9646 September, Anxiety F41.9 and Back pain M54.9 [place] [facility] [address] [place] [address] 23062- 9448 September, Diabetes E11.9 ; Hypertension I10 ; COPD (chronic obstructive pulmonary disease) J44.9 and Lumbar radiculopathy, chronic M54.16 [place] [address] [place] [address] 66549- 6650 September, Anxiety F41.9 [place] [address] [place] [address] 51904- 7358 Aug, [facility] [address] [place] [address] 68659- 2946 Aug, [facility] [address] [place] [address] 46268- 2133 Aug, Anxiety F41.9 and Back pain M54.9 [place] [address] [place] [address] 02188- 3130 Aug, Medicare annual wellness visit, initial Z00.00 ; COPD ( chronic obstructive pulmonary disease) J44.9 ; PAD (peripheral artery disease) I73.9 ; Insulin long-term use Z79.4 ; Hypertension I10 ; Anxiety F41.9 ; Recurrent major depressive disorder, in full remission F33.42 ; Pressure ulcer of other site, stage 3 L89.893 ; Type 2 diabetes mellitus with diabetic peripheral angiopathy without gangrene E11.51 and meterman current use of insulin Z79.4 [facility] [address] [place] [address] 89350- 1715 Jul, Back pain M54.9 [facility] [address] [place] [address] 38731- 7590 Jul, [place] [address] [place] [address] 81238- 9413 Jul, Anxiety F41.9 and Back pain M54.9 [place] [address] [place] [address] 86554- 0052 Jul, Diabetes E11.9 [place] [address] 29061- 3583 May, [place] [address] [place] [address] 60128- 3991 May, Diabetes E11.9 ; Anxiety F41.9 ; Back pain M54.9 and COPD ( chronic obstructive pulmonary disease) J44.9 [place] [address] [place] [address] 35646- 9396 May, Back pain M54.9 [place] [address] [place] [address] 29311- 4917 May, [place] [address] [place] [address] 58137- 8983 Apr, Back pain M54.9 [place] [address] [place] [address] 86206- 3616 Mar, Back pain M54.9 [facility] [address] [place] [address] 05018- 2875 Mar, [facility] [address] [place] [address]- 4246 16 Mar, 2017 [facility] [address] [place] [address] 16660- 1253 14 Mar, 2017 Radiculopathy of lumbar region M54.16 [facility] [address] [place] [address] 80410- 2307 13 Mar, 2017 [facility] [address] 78675- 4205 07 Mar, 2017 Encounter for immunization Z23 and Lumbar radiculopathy, chronic M54.16 [facility] [address] [place] [address] 50094- 4020 01 Mar, 2017 Back pain M54.9 and Anxiety F41.9 [facility] [address] [place] [address] 59907 -7540 10 Feb, 2017 Acute bilateral low back pain with left-sided sciatica M54.42 and Acute bilateral low back pain with right-sided sciatica M54.41 [facility] [address] [place] [address] 89266- 7792 Feb, [facility] [address] [place] [address] 83488- 8681 Feb, Back pain M54.9 [facility] [address] [place] [address] 64759- 0542 05 Jan, 2017 Back pain M54.9 and Anxiety F41.9 [facility] [address] [place] [address] 00349- 0078 05 Jan, 2017 Diabetes E11.9 [facility] [address] [place] [address] 72862- 8694 Dec, Diabetes E11.9 ; Back pain M54.9 ; Anxiety F41.9 and Insulin long-term use Z79.4 [facility] [address] [place] [address] 21169- 4273 Dec, Anxiety F41.9 [place] [address], [place] [address] 6415 Dec, Back pain M54.9 [facility] [address] [place] [address] 38057- 6107 Nov, Back pain M54.9 [facility] [address] [place] [address] 86839- 4376 Oct, Back pain M54.9 and Anxiety F41.9 [facility] [address] [place] [address] 97174- 5488 September, Back pain M54.9 [facility] [address] [place] [address] 75309- 2007 September, Back pain M54.9 and Anxiety F41.9 [facility] [address] [place] [address] 43786- 8167 Aug, Diabetes E11.9 ; Anxiety F41.9 ; Back pain M54.9 and PAD ( peripheral artery disease) I73.9 [facility] [address] [place] [address] 85294- 4659 Aug, Anxiety F41.9 [facility] [address] [place] [address] 64210- 3707 14 Aug, 2016 Back pain M54.9 [facility] [address] [place] [address] 53715- 4198 Jul, Back pain M54.9 [facility] [address] [place] [address] 43616- 5125 13 Jul, 2016 Back pain M54.9 [facility] [address] [place] [address] 53331- 3111 23 Jul, 2016 Back pain M54.9 [facility] [address] [place] [address] 95046- 8893 16 Jul, 2016 Dorsalgia M54.9 [facility] [address] [place] [address]- 2475 14 Jul, 2016 [facility] [address] [place] [address] 72863- 9049 May, Back pain M54.9 [facility] [address] [place] [address] 87472- 9383 May, Diabetes E11.9 ; Anxiety F41.9 ; Port catheter in place Z95.828 ; Encounter for immunization Z23 and Insulin long-term use Z79.4 [facility] [address] 96257- 6577 Apr, Back pain M54.9 [facility] [address] 74273- 1623 Apr, Back pain M54.9 [facility] [address] 10907- 7742 Apr, [facility] [address] 89411- 7874 Apr, Back pain M54.9 [facility] [address] 06322- 5572 Mar, COPD (chronic obstructive pulmonary disease) J44.9 [facility] [address] [place] [address] 12928- 1155 Feb, [facility] [address] [place] [address] 98753- 0132 30 Jan, 2016 [facility] [address] [place] [address] 70054- 8148 Jan, [facility] [address] 60533- 3447 Jan, [facility] [address] [place] [address] 80268- 3159 Jan, [facility] [address] [place] [address] 73863- 4982 Dec, Diabetes E11.9 ; Hypoxia R09.02 and Back pain M54.9 [facility] [address] [place] [address] 86002- 7405 Dec, [facility] [address] [place] [address] 77810- 0038 Nov, [facility] [address] [place] [address] 08540- 8233 Oct, Anxiety F41.9 [facility] [address] [place] [address] 34068- 7860 Oct, Back pain M54.9 [facility] [address] [place] [address] 93762- 4593 September, Back pain M54.9 [facility] [address] [place] [address] 80912- 4348 September, Diabetes E11.9 [facility] [address] [place] [address] 90007- 2916 September, [facility] [address] [place] [address] 54677- 7604 September, Diabetes E11.9 ; Insulin long-term use Z79.4 and Back pain M54.9 [facility] [address] [place] [address] 91330- 3291 Aug, Back pain M54.9 [facility] [address] [place] [address] 13407- 5724 Aug, Back pain M54.9 ; Anxiety F41.9 and Arthropathy, unspecified M12.9 [facility] [address] [place] [address] 58294- 9117 Jul, Back pain M54.9 [facility] [address] [place] [address] 98634- 9734 Jul, Anxiety F41.9 [facility] [address], [place] [address]- 4743 Jul, Back pain M54.9 [facility] [address] [place] [address] 85281- 9295 Jul, [facility] [address] [place] [address] 04634- 2825 Jul, [facility] [address] [place] [address] 69329- 0110 May, Back pain M54.9 ; Diabetes E11.9 ; Insulin long-term use Z79.4 ; COPD (chronic obstructive pulmonary disease) J44.9 and Hypertension I10 [facility] [address] [place] [address] 22461- 4143 May, Chronic pain G89.29 [facility] [address] [place] [address] 58937- 8925 Apr, [facility] [address] [place] [address] 32843- 8700 Apr, [facility] [address] [place] [address] 69111- 7994 Mar, [facility] [address] [place] [address] 72602- 2333 Mar, Encounter for immunization Z23 and Diabetes E11.9 [facility] [address] [place] [address] 07367- 0249 Feb, [facility] [address] [place] [address] 83702- 3593 Feb, [facility] [address] [place] [address] 86882- 3067 23 Jan, 2015 [facility] [address] [place] [address] 14374- 1723 16 Jan, 2015 [facility] [address] [place] [address] 63994- 0979 Dec, [facility] [address] [id number] [place] [address]- 7112 Dec, [facility] [address] [facility] [id number] [place] [address]- 4667 Dec, Unspecified arthropathy, site unspecified 716.90 and Diabetes mellitus type 2, uncontrolled 250.02 [facility] [address] [id number] [place] [address]- 9481 Dec, [facility] [address] [id number] [place] [address]- 0447 Nov, [facility] [address] [id number] [place] [address]- 4805 Oct, [facility] [address] [id number] [place] [address]- 8198 September, [facility] [address] [place] [address]- 5581 September, [facility] [address] [facility] [id number] [place] [address]- 1948 September, [facility] [address] [facility] [id number] [place] [address]- 9737 September, [facility] [address] [facility] [id number] [place] [address]- 9275 Aug, [facility] [address] [id number] [place] [address]- 8874 Aug, [facility] [address] [id number] [place] [address]- 7064 Jul, [facility] [address] [id number] [place] [address]- 8504 Jul, [facility] [address] [facility] [id number] [place] [address]- 7382 16 Jul, 2014 [facility] [address] [facility] [id number] [place] [address]- 1094 16 Jul, 2014 [facility] [place] [facility] [address] [id number] [place] [address]- 5758 16 Jul, 2014 [facility] [place] [facility] [address] [id number] [place] [address]- 6072 16 Jul, 2014 [facility] [place] [facility] [address] [id number] [place] [address]- 6788 16 Jul, 2014 [facility] [place] [facility] [address] [id number] [place] [address]- 9952 16 Jul, 2014 [facility] [place] [facility] [address] [id number] [place] [address]- 8866 16 Jul, 2014 [facility] [place] [facility] [address] [id number] [place] [address]- 3394 13 Jul, 2014 [facility] [place] [facility] [address] [id number] [place] [address]- 1855 13 Jul, 2014 [facility] [place] [facility] [address] [id number] [place] [address]- 7287 09 Jul, 2014 [facility] [place] [facility] [address] [id number] [place] [address]- 4063 09 Jul, 2014 [facility] [place] [facility] [address] [id number] [place] [address]- 4359 17 Jul, 2014 [facility] [place] [facility] [address] [id number] [place] [address]- 2281 17 Jul, 2014 [facility] [place] [facility] [address] [id number] [place] [address]- 0460 16 Jul, 2014 [facility] [place] [facility] [address] [id number] [place] [address]- 2664 16 Jul, 2014 [facility] [place] [facility] [address] [id number] [place] [address]- 7906 16 Jul, 2014 [facility] [place] [facility] [address] [id number] [place] [address]- 3722 16 Jul, 2014 [facility] [place] [facility] [address] [id number] [place] [address]- 4634 16 Jul, 2014 [facility] [place] [facility] [address] [id number] [place] [address]- 8621 Jul, 2014 [facility] [place] [facility] [address] [id number] [place] [address]- 0866 16 Jul, 2014 [facility] [place] [facility] [address] [id number] [place] [address]- 8862 Jul, 2014 [facility] [place] [facility] [address] [id number] [place] [address]- 4805 Jul, 2014 [facility] [place] [facility] [address] [id number] [place] [address]- 8263 Jul, 2014 [facility] [place] [facility] [address] [id number] [place] [address]- 8920 Jul, 2014 [facility] [place] [facility] [address] [id number] [place] [address]- 3395 Jul, 2014 [facility] [place] [facility] [address] [id number] [place] [address]- 0072 Jul, 2014 [facility] [place] [facility] [address] [id number] [place] [address]- 1784 Jul, 2014 [facility] [place] [facility] [address] [id number] [place] [address]- 1597 May, [facility] [place] [facility] [address] [id number] [place] [address]- 6375 May, [facility] [place] [facility] [address] [id number] [place] [address]- 2539 May, [facility] [place] [facility] [address] [id number] [place] [address]- 5596 May, [facility] [place] [facility] [address] [id number] [place] [address]- 3605 May, [facility] [place] [facility] [address] [id number] [place] [address]- 3809 May, [facility] [place] [facility] [address] [id number] [place] [address]- 7341 May, [facility] [place] [facility] [address] [id number] [place] [address]- 1448 May, [facility] [place] [facility] [address] [id number] [place] [address]- 1043 May, [facility] [place] [facility] [address] [id number] [place] [address]- 0574 May, [facility] [place] [facility] [address] [id number] [place] [address]- 2968 Apr, [facility] [place] [facility] [address] [id number] [place] [address]- 6870 Apr, [facility] [place] [facility] [address] [id number] [place] [address]- 3322 Apr, [facility] [place] [facility] [address] [id number] [place] [address]- 2833 Apr, [facility] [place] [facility] [address] [id number] [place] [address]- 5672 Apr, [facility] [place] [facility] [address] [id number] [place] [address]- 2753 Apr, [facility] [place] [facility] [address] [id number] [place] [address]- 3023 Mar, [facility] [place] [facility] [address] [id number] [place] [address]- 1375 Mar, [facility] [place] [facility] [address] [id number] [place] [address]- 0335 Mar, [facility] [place] [facility] [address] [id number] [place] [address]- 5360 Mar, [facility] [place] [facility] [address] [id number] [place] [address]- 6999 Mar, [facility] [place] [facility] [address] [id number] [place] [address]- 2960 Mar, [facility] [place] [facility] [address] [id number] [place] [address]- 0811 Mar, [facility] [place] [facility] [address] [id number] [place] [address]- 0922 Mar, [facility] [place] [facility] [address] [id number] [place] [address]- 8788 Mar, [facility] [place] [facility] [address] [id number] [place] [address]- 4071 Mar, [facility] [place] [facility] [address] [id number] [place] [address]- 2659 Mar, [facility] [place] [facility] [address] [id number] [place] [address]- 3969 Feb, [facility] [place] [facility] [address] [id number] [place] [address]- 5583 Feb, [facility] [place] [facility] [address] [id number] [place] [address]- 2562 Feb, [facility] [place] [facility] [address] [id number] [place] [address]- 0507 Feb, [facility] [place] [facility] [address] [id number] [place] [address]- 7245 Feb, [facility] [place] [facility] [address] [id number] [place] [address]- 9557 Feb, [facility] [place] [facility] [address] [id number] [place] [address]- 8159 Feb, [facility] [place] [facility] [address] [id number] [place] [address]- 7109 Feb, [facility] [place] [facility] [address] [id number] [place] [address] Feb, [facility] [place] [facility] [address] [id number] [place] [address] Feb, [facility] [place] [facility] [address] [id number] [place] [address] Jan, 2013 [facility] [place] [facility] [address] [id number] [place] [address] Jan, [facility] [place] [facility] [address] [id number] [place] [address] Jan, [facility] [place] [facility] [address] [id number] [place] [address] Jan, 2013 [facility] [place] [facility] [address] [id number] [place] [address] Jan, [facility] [place] [facility] [address] [id number] [place] [address] Jan, [facility] [place] [facility] [address] [id number] [place] [address] Jan, [facility] [place] [facility] [address] [id number] [place] [address] Dec, [facility] [place] [facility] [address] [id number] [place] [address]- 2014 Dec, [facility] [place] [facility] [address] [id number] [place] [address] Dec, [facility] [place] [facility] [address] [id number] [place] [address] Dec, [facility] [place] [facility] [address] [id number] [place] [address] Dec, [facility] [place] [facility] [address] [id number] [place] [address] Dec, [facility] [place] [facility] [address] [id number] [place] [address] Dec, [facility] [place] [facility] [address] [id number] [place] [address] Dec, [facility] [place] [facility] [address] [id number], [place] [address] Oct, [facility] [place] [facility] [address] [id number] [place] [address] Oct, [facility] [place] [facility] [address] [id number] [place] [address] September, [facility] [place] [facility] [address] [id number] [place] [address]- [address] September, [facility] [place] [facility] [address] [id number] [place] [address] September, [facility] [place] [facility] [address] [id number] [place] [address]- [address] September, [facility] [place] [facility] [address] [id number] [place] [address]- [address] September, [facility] [place] [facility] [address] [id number] [place] [address]- [address] September, [facility] [place] [facility] [address] [id number] [place] [address]- [address] September, [facility] [place] [facility] [address] [id number] [place] [address] Aug, [facility] [place] [facility] [address] [id number] [place] [address] Aug, [facility] [place] [facility] [address] [id number] [place] [address] Jul, [facility] [place] [facility] [address] [id number] [place] [address] Jul, [facility] [place] [facility] [address] [id number] [place] [address] Jul, [facility] [place] [facility] [address] [id number] [place] [address]- [address] Jul, [facility] [place] [facility] [address] [id number] [place] [address] Jul, [facility] [place] [facility] [address] [id number] [place] [address] 14 Jul, 2013 [facility] [place] [facility] [address] [id number] [place] [address] Jul, [facility] [place] [facility] [address] [id number] [place] [address] Jul, [facility] [place] [facility] [address] [id number] [place] [address] 15 May, 2013 [facility] [place] [facility] [address] [id number] [place] [address] May, [facility] [place] [facility] [address] [id number] [place] [address] May, [facility] [place] [facility] [address] [id number] [place] [address] May, [facility] [place] [facility] [address] [id number] [place] [address] Apr, [facility] [place] [facility] [address] [id number] [place] [address] Mar, [facility] [place] [facility] [address] [id number] [place] [address] Mar, [facility] [place] [facility] [address] [id number] [place] [address] Mar, [facility] [place] [facility] [address] [id number] [address] Mar, [facility] [place] [facility] [address] [id number] [place] [address] Mar, [facility] [place] [facility] [address] [id number] [place] [address] 18 Mar, 2013 [facility] [place] [facility] [address] [id number] [place] [address] 18 Mar, 2013 [facility] [place] [facility] [address] [id number], [place] [address] Mar, [facility] [place] [facility] [address] [id number] [place] [address] Mar, [facility] [place] [facility] [address] [id number] [place] [address] Mar, [facility] [place] [facility] [address] [id number] [place] [address] Mar, [facility] [place] [facility] [address] [id number] [place] [address] Mar, [facility] [place] [facility] [address] [id number] [place] [address] Feb, [facility] [place] [facility] [address] [id number] [place] [address] Feb, [facility] [place] [facility] [address] [id number] [place] [address] Feb, [facility] [place] [facility] [address] [id number] [place] [address] Feb, [facility] [place] [facility] [address] [id number] [place] [address] Feb, [facility] [place] [facility] [address] [id number] [place] [address] Jan, [facility] [place] [facility] [address] [id number] [place] [address] Dec, [facility] [place] [facility] [address] [id number] [place] [address] Dec, [facility] [place] [facility] [address] [id number] [place] [address]85 Dec, [facility] [place] [facility] [address] [id number] [place] [address] Nov, [facility] [place] [facility] [address] [id number] [place] [address] Nov, [facility] [place] [facility] [address] [id number] [place] [address] 15 Nov, 2012 [facility] [address] [id number] [place] [address] Oct, [facility] [address] [id number] [place] [address] Oct, [facility] [address] [id number] [place] [address]75 Oct, [facility] [address] [id number] [place] [address] September, [facility] [address] [id number] [place] [address] 9992 September, [facility] [address] [id number] [place] [address] 2498 September, [facility] [address] [id number] [place] [address] September, [facility] [address] [id number] [place] [address] 8555 September, [facility] [address] [id number] [place] [address] 8118 Aug, [facility] [address] [id number] [place] [address] Aug, [facility] [address] [id number] [place] [address] 1733 Aug, [facility] [address] [id number] [place] [address]- [address] Jul, [facility] [place] [facility] [address] [id number] [place] [address] Jul, [facility] [address] [id number] [place] [address] Jul, [facility] [address] [id number] [place] [address] 4[address] Jul, [facility] [address] [id number] [place] [address] Jul, [facility] [place] [facility] [address] [id number] [place] [address] Jul, [facility] [place] [facility] [address] [id number] [place] [address]164 Jul, [facility] [place] [facility] [address] [id number] [place] [address]697 May, [facility] [place] [facility] [address] [id number] [place] [address] May, [facility] [place] [facility] [address] [id number] [place] [address]- 9694 May, [facility] [place] [facility] [address] [id number] [place] [address] 41[address] Apr, [facility] [place] [facility] [address] [id number] [place] [address] 3313 Apr, [facility] [place] [facility] [address] [id number] [place] [address]- 0750 Apr, [facility] [place] [facility] [address] [id number] [place] [address]- [address]65 17 Apr, 2012 [facility] [place] [facility] [address] [id number] [place] [address]- 2636 Apr, [facility] [place] [facility] [address] [id number], [place] [address] 29 Mar, 2012 [facility] [place] [facility] [address] [id number] [place] [address]- [address]80 29 Mar, 2012 [facility] [place] [facility] [address] [id number] [place] [address]- 3788 15 Mar, 2012 [facility] [place] [facility] [address] [id number] [place] [address]- 0393 15 Mar, 2012 [facility] [place] [facility] [address] [id number] [place] [address]- 5[address] Feb, [facility] [place] [facility] [address] [id number] [place] [address]- 8392 Feb, [facility] [place] [facility] [address] [id number] [place] [address]- 1286 Feb, [facility] [place] [facility] [address] [id number] [place] [address]- 8787 Feb, [facility] [place] [facility] [address] [id number] [place] [address] 3336 Feb, [facility] [place] [facility] [address] [id number] [place] [address]- 119[address] Jan, [facility] [place] [facility] [address] [id number] [place] [address]- 6707 Dec, [facility] [place] [facility] [address] [id number] [place] [address]- 1538 Dec, [facility] [place] [facility] [address] [id number] [place] [address]- 2335 Dec, [facility] [place] [facility] [address] [id number] [place] [address]- 5813 Nov, [facility] [place] [facility] [address] [facility] [id number] [place] [address]- [address] Nov, [facility] [place] [facility] [address] [id number] [place] [address]- 5901 Nov, [facility] [place] [facility] [address] [id number] [place] [address]- 3262 Oct, [facility] [place] [facility] [address] [id number] [place] [address]- 9909 Oct, [facility] [place] [facility] [address] [id number] [place] [address]- 5779 Oct, [facility] [place] [facility] [address] [id number] [place] [address]- 6842 Oct, [facility] [place] [facility] [address] [id number] [place] [address]- 6571 September, [facility] [address] [id number] [place] [address]- 9339 September, [facility] [address] [id number] [place] [address]- 8616 Aug, [facility] [address] [id number] [place] [address]- 5223 Aug, [facility] [address] [id number] [place] [address]- 4019 Aug, [facility] [address] [id number] [place] [address]- 7089 Aug, [facility] [address] [id number] [place] [address]- 3223 Aug, [facility] [address] [id number] [place] [address]- 7071 Aug, [facility] [address] [id number] [place] [address]- 6076 Aug, [facility] [address] [id number] [place] [address]- 5275 Jul, [facility] [place] [facility] [address] [id number] [place] [address]- 7909 Jul, [facility] [address] [id number] [place] [address]- 8198 Jul, [facility] [place] [facility] [address] [id number] [place] [address]- 4144 May, [facility] [place] [facility] [address] [id number] [place] [address]- 0876 May, [facility] [place] [facility] [address] [id number] [place] [address]- 5276 May, [facility] [place] [facility] [address] [id number], [place] [address]186 Apr, [facility] [id number] [address] Apr, [facility] [address] [facility] [id number][place] [id number] [address] Mar, [facility] [id number] [address]- [address] Mar, [facility] [id number] [address] [address] Mar, [facility] [id number], [place] [address]- [address]32 Mar, [facility] [id number] [address] Mar, [facility] [id number], [place] [address]- 9[address] Mar, [facility] [id number], [place] [address]- 45[address] Feb, [facility] [id number], [place] [address]- 6[address] Feb, [facility] [id number], [place] [address]- 1138 Feb, IMMUNIZATIONS No Known Immunizations SOCIAL HISTORY Never Assessed REASON FOR VISIT Controlled meds x's 5, due 12/10 PLAN OF CARE VITAL SIGNS MEDICATIONS Medication Instructions Dosage Frequency Start Date End Date Duration Status Hydrocodone-Acetaminophen 10-325 MG Orally every 6 hrs 1 tablet as needed 6h Nov, 28 days Active Xanax 1 MG Orally TID PRN 1 tablet May, Active MS Contin 30 MG Orally every 8 hours 1 tablet 8h Nov, 28 days Active Soma 350 mg Orally Once a day 1 tablet as needed 24h Active Lyrica 225 mg Orally Twice a day 1 capsule 12h 30 Active RESULTS No Results PROCEDURES No Known [...]
--- OUTSIDE RECORDS SUMMARY | 2018-05-16 06:56 | XMS REPORT ---
Author Author FERNY SILVERIO Organization [facility] Address [address] [place] [address] Care Team Providers Care Block Handler Name Role Phone FERNY SILVERIO Unavailable PROBLEMS Type Condition ICD9-CM Code VKI00-WN Code Onset Dates Condition Status SNOMED Code Problem Hypoxia R09.02 Active 033974567 Problem Port catheter in place Z95.828 Active 903073707 Problem Anxiety F41.9 Active 31073245 Problem Type 2 diabetes mellitus with diabetic peripheral angiopathy without gangrene E11.51 Active 492605224 Problem Pressure ulcer of other site, stage 3 L89.893 Active 831020745 Problem Lumbar radiculopathy, chronic M54.16 Active 287166069 Problem PAD (peripheral artery disease) I73.9 Active 322445905 Problem 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 Active 784596249 Problem Recurrent major depressive disorder, in full remission F33.42 Active 005984824 Problem Diabetes E11.9 Active 24310332 Problem Hypertension I10 Active 73216056 Problem Back pain M54.9 Active 555026123 Problem Insulin long-term use Z79.4 Active 055027721 Problem COPD (chronic obstructive pulmonary disease) J44.9 Active 70557803 ALLERGIES No Information ENCOUNTERS Encounter Location Date Diagnosis [facility] [id number] [place] [address] 30130- 5230 Jan, Back pain M54.9 and Anxiety F41.9 [facility] [id number] [place] [address] 41499- 6979 Jan, [facility] [id number] [place] [address] 41273- 1069 Dec, [facility] [address] [address]- 1142 Dec, Back pain M54.9 and Anxiety F41.9 [facility] [id number] [place] [address] 97818- 5213 Dec, Diabetes E11.9 ; Type 2 diabetes mellitus with diabetic peripheral angiopathy without gangrene E11.51 ; Lumbar radiculopathy, chronic M54.16 ; COPD (chronic obstructive pulmonary disease) J44.9 and Anxiety F41.9 [facility] [id number] [place] [address] 77127- 5476 Dec, Back pain M54.9 and Anxiety F41.9 [facility] [id number] [place] [address] 83156- 6832 Nov, Back pain M54.9 and Anxiety F41.9 [facility] [id number] [place] [address] 77426- 0188 Oct, [place] [address] 90908- 2881 Oct, Back pain M54.9 and Anxiety F41.9 [facility] [id number] [place] [address] 18435- 8266 September, Anxiety F41.9 and Back pain M54.9 [facility] [id number] [place] [address] 66135- 3495 September, Diabetes E11.9 ; Hypertension I10 ; COPD (chronic obstructive pulmonary disease) J44.9 and Lumbar radiculopathy, chronic M54.16 [facility] [id number] [place] [address] 63383- 4094 September, Anxiety F41.9 [facility] [id number] [place] [address] 55169- 8849 Aug, [facility] [id number] [place] [address] 24089- 8956 Aug, [facility] [id number] [place] [address] 46545- 4795 Aug, Anxiety F41.9 and Back pain M54.9 [facility] [id number] [place] [address] 27914- 3638 Aug, Medicare annual wellness visit, initial Z00.00 ; COPD ( chronic obstructive pulmonary disease) J44.9 ; PAD (peripheral artery disease) I73.9 ; Insulin long-term use Z79.4 ; Hypertension I10 ; Anxiety F41.9 ; Recurrent major depressive disorder, in full remission F33.42 ; Pressure ulcer of other site, stage 3 L89.893 ; Type 2 diabetes mellitus with diabetic peripheral angiopathy without gangrene E11.51 and 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 [place] [address] 15987- 3727 Jul, Back pain M54.9 [place] [id number] [place] [address] 88244- 9364 Jul, [facility] [address] 78999- 4667 Jul, Anxiety F41.9 and Back pain M54.9 [facility] [id number] [place] [address] 04657- 5854 Jul, Diabetes E11.9 [facility] [id number] [place] [address] 22631- 3317 May, [facility] [id number] [place] [address] 36787- 0794 May, Diabetes E11.9 ; Anxiety F41.9 ; Back pain M54.9 and COPD ( chronic obstructive pulmonary disease) J44.9 [facility] [id number] [place] [address] 33531- 2185 May, Back pain M54.9 [facility] [id number] [place] [address] 36807- 9440 May, [facility] [id number] [place] [address] 56578- 7556 Apr, Back pain M54.9 [facility] [id number] [place] [address] 19897- 2818 30 Mar, 2017 Back pain M54.9 [facility] [id number] [place] [address] 85682- 0654 20 Mar, 2017 [facility] [id number] [place] [address] 42199- 9305 16 Mar, 2017 [facility] [id number] [place] [address] 64218- 7842 14 Mar, 2017 Radiculopathy of lumbar region M54.16 [facility] [address] 58962- 5297 13 Mar, 2017 [facility] [id number] [place] [address] 71968- 1578 07 Mar, 2017 Encounter for immunization Z23 and Lumbar radiculopathy, chronic M54.16 [facility] [id number] [place] [address] 07925- 1221 Mar, Back pain M54.9 and Anxiety F41.9 [facility] [id number] [place] [address] 32682 -6936 10 Feb, 2017 Acute bilateral low back pain with left-sided sciatica M54.42 and Acute bilateral low back pain with right-sided sciatica M54.41 [facility] [id number] [place] [address] 01367- 2815 Feb, [facility] [id number] [place] [address] 07645- 7762 Feb, Back pain M54.9 [facility] [id number] [place] [address] 70524- 6003 05 Jan, 2017 Back pain M54.9 and Anxiety F41.9 [facility] [id number] [place] [address] 32355- 7768 05 Jan, 2017 Diabetes E11.9 [facility] [id number] [place] [address]- 2080 14 Dec, 2016 Diabetes E11.9 ; Back pain M54.9 ; Anxiety F41.9 and Insulin long-term use Z79.4 [facility] [id number] [place] [address] 10884- 0480 09 Dec, 2016 Anxiety F41.9 [facility] [address] 78785- 6803 Dec, Back pain M54.9 [facility] [address] 69506- 9004 Nov, Back pain M54.9 [facility] [address] 49341- 9019 Oct, Back pain M54.9 and Anxiety F41.9 [facility] [id number] [place] [address] 05169- 9360 September, Back pain M54.9 [facility] [id number] [place] [address] 23233- 8615 September, Back pain M54.9 and Anxiety F41.9 [facility] [id number] [place] [address] 39083- 2923 Aug, Diabetes E11.9 ; Anxiety F41.9 ; Back pain M54.9 and PAD ( peripheral artery disease) I73.9 [facility] [id number] [place] [address] 19253- 6909 Aug, Anxiety F41.9 [facility] [id number] [place] [address] 99649- 4505 14 Aug, 2016 Back pain M54.9 [facility] [id number] [place] [address] 68084- 4052 23 Jul, 2016 Back pain M54.9 [facility] [id number] [place] [address] 64341- 5759 Jul, Back pain M54.9 [place] [id number] [place] [address] 09469- 3350 23 Jul, 2016 Back pain M54.9 [facility] [address] 98663 2546 16 Jul, 2016 Dorsalgia M54.9 [facility] [address] [address] 2546 14 Jul, 2016 [facility] [address] 24840 2542 May, Back pain M54.9 [facility] [address] 82663- 9204 May, Diabetes E11.9 ; Anxiety F41.9 ; Port catheter in place Z95.828 ; Encounter for immunization Z23 and Insulin long-term use Z79.4 [facility] [address] 41006- 2700 Apr, Back pain M54.9 [facility] [address] 84456- 2097 Apr, Back pain M54.9 [facility] [id number] [place] [address] 16488- 7222 Apr, [facility] [id number] [place] [address] 91184- 6784 Apr, Back pain M54.9 [facility] [id number] [place] [address] 65103 2540 Mar, COPD (chronic obstructive pulmonary disease) J44.9 [facility] [id number] [place] [address] 96996- 4601 Feb, [facility] [id number] [place] [address] 28257- 254 30 Jan, 2016 [facility] [id number] [place] [address] 25476- 2545 Jan, [facility] [address] [address]- 2104 Jan, [facility] [id number] [place] [address] 74545- 6205 Jan, [facility] [id number] [place] [address] 34376- 4980 Dec, Diabetes E11.9 ; Hypoxia R09.02 and Back pain M54.9 [facility] [id number] [place] [address] 00586- 4305 Dec, [facility] [id number] [place] [address] 51933- 1262 Nov, [facility] [id number] [place] [address] 11592- 9486 Oct, Anxiety F41.9 [facility] [id number] [place] [address] 68322- 7920 Oct, Back pain M54.9 [facility] [id number] [place] [address] 90422- 6777 September, Back pain M54.9 [facility] [id number] [place] [address] 94210- 6430 September, Diabetes E11.9 [facility] [id number] [place] [address] 81103- 7249 September, [facility] [address] [place] [address] 96318- 0629 September, Diabetes E11.9 ; Insulin long-term use Z79.4 and Back pain M54.9 [facility] [id number] [place] [address] 96223- 4448 Aug, Back pain M54.9 [facility] [address] [place] [address] 64901- 7415 Aug, Back pain M54.9 ; Anxiety F41.9 and Arthropathy, unspecified M12.9 [facility] [address] [address]- 9602 Jul, Back pain M54.9 [facility] [id number] [place] [address] 34367- 8947 Jul, Anxiety F41.9 [facility] [id number] [place] [address] 62725- 5065 Jul, Back pain M54.9 [facility] [id number] [place] [address] 58210- 8278 Jul, [facility] [address] 26442- 1025 Jul, [facility] [id number] [place] [address] 41625- 7374 May, Back pain M54.9 ; Diabetes E11.9 ; Insulin long-term use Z79.4 ; COPD (chronic obstructive pulmonary disease) J44.9 and Hypertension I10 [facility] [id number] [place] [address] 63213- 5260 May, Chronic pain G89.29 [facility] [id number] [place] [address] 44800- 6091 Apr, [facility] [id number] [place] [address] 95329- 5703 Apr, [facility] [id number] [place] [address] 04464- 0223 Mar, [facility] [id number] [place] [address] 93614- 6925 Mar, Encounter for immunization Z23 and Diabetes E11.9 [facility] [id number] [place] [address] 33671- 9718 Feb, [facility] [id number] [place] [address] 58169- 3236 Feb, [facility] [address] [address]- 6742 Jan, [facility] [address] [facility] [address] [id number] [place] 4498 Jan, [facility] [address] [facility] [address] [id number] [place] [address]- 6837 Dec, [facility] [address] [address]- 2910 Dec, [facility] [address] [address]- 7879 Dec, Unspecified arthropathy, site unspecified 716.90 and Diabetes mellitus type 2, uncontrolled 250.02 [facility] [address] [facility] [address] [id number] [place] [address]- 0759 Dec, [facility] [address] [address]- 9782 Nov, [facility] [address] [address]- 0461 Oct, [facility] [address] [address]- 2681 September, [facility] [address] [address]- 6023 September, [facility] [id number] [address]- 5480 September, [facility] [id number] [address]- 2418 September, [facility] [address] [id number] [place] [address]- 5550 14 Aug, 2014 [facility] [address] [facility] [address] [id number] [place] 6537 Aug, [facility] [id number] [address]- 2251 Jul, [facility] [place] [facility] [address] [id number] [place] [address]- 1530 18 Jul, 2014 [facility] [place] [facility] [address] [id number] [place] [address]- 4842 16 Jul, 2014 [facility] [place] [facility] [address] [id number] [place] [address]- 9935 16 Jul, 2014 [facility] [place] [facility] [address] [id number] [place] [address]- 3101 16 Jul, 2014 [facility] [place] [facility] [address] [id number] [place] [address]- 8445 16 Jul, 2014 [facility] [place] [facility] [address] [id number] [place] [address]- 8251 16 Jul, 2014 [facility] [place] [facility] [address] [id number] [place] [address]- 2812 16 Jul, 2014 [facility] [place] [facility] [address] [id number] [place] [address]- 5193 16 Jul, 2014 [facility] [place] [facility] [address] [id number] [place] [address]- 2737 13 Jul, 2014 [facility] [place] [facility] [address] [id number] [place] [address]- 7956 13 Jul, 2014 [facility] [place] [facility] [address] [id number] [place] [address]- 4723 09 Jul, 2014 [facility] [place] [facility] [address] [id number] [place] [address]- 4686 09 Jul, 2014 [facility] [place] [facility] [address] [id number] [place] [address]- 8071 17 Jul, 2014 [facility] [place] [facility] [address] [id number] [place] [address]- 1066 17 Jul, 2014 [facility] [place] [facility] [address] [id number] [place] [address]- 4396 16 Jul, 2014 [facility] [place] [facility] [address] [id number] [place] [address]- 3575 16 Jul, 2014 [facility] [place] [facility] [address] [id number] [place] [address]- 1739 16 Jul, 2014 [facility] [place] [facility] [address] [id number] [place] 4546 16 Jul, 2014 [facility] [place] [facility] [address] [facility] [address] [id number] [place] [address]- 8722 16 Jul, 2014 [facility] [place] [facility] [address] [id number] [place] [address]- 7314 16 Jul, 2014 [facility] [place] [facility] [address] [id number] [place] [address]- 9134 16 Jul, 2014 [facility] [place] [facility] [address] [id number] [place] [address]- 1681 16 Jul, 2014 [facility] [place] [facility] [address] [facility] [address] [id number] [place] [address]- 7644 16 Jul, 2014 [facility] [place] [facility] [address] [id number] [place] [address]- 2662 Jul, 2014 [facility] [place] [facility] [address] [id number] [place] [address]- 2044 Jul, 2014 [facility] [place] [facility] [address] [facility] [address] [id number] [place] [address]- 4560 16 Jul, 2014 [facility] [place] [facility] [address] [facility] [address] [id number] [place] [address]- 2010 Jul, 2014 [facility] [place] [facility] [address] [facility] [address] [id number] [place] 7546 Jul, 2014 [facility] [place] [facility] [address] [id number] [place] [address]- 2389 May, [facility] [place] [facility] [address] [id number] [place] [address]- 7630 May, [facility] [place] [facility] [address] [facility] [address] [id number] [place] [address]- 2686 May, [facility] [place] [facility] [address] [id number] [place] [address]- 5022 May, [facility] [place] [facility] [address] [id number] [place] [address]- 9310 May, [facility] [place] [facility] [address] [id number] [place] [address]- 1312 May, [facility] [place] [facility] [address] [id number] [place] [address]- 0725 May, [facility] [place] [facility] [address] [id number] [place] [address]- 4260 May, [facility] [place] [facility] [address] [id number] [place] [address]- 5277 May, [facility] [place] [facility] [address] [id number] [place] [address]- 9701 May, [facility] [place] [facility] [address] [id number] [place] [address]- 4131 Apr, [facility] [place] [facility] [address] [id number] [place] [address]- 7934 Apr, [facility] [place] [facility] [address] [id number] [place] [address]- 2788 Apr, [facility] [place] [facility] [address] [id number] [place] [address]- 0312 Apr, [facility] [place] [facility] [address] [id number] [place] [address]- 1121 Apr, [facility] [place] [facility] [address] [id number] [place] [address]- 3253 Apr, [facility] [place] [facility] [address] [id number] [place] [address]- 3341 Mar, [facility] [place] [facility] [address] [id number] [place] [address]- 4498 Mar, [facility] [place] [facility] [address] [id number] [address]- 7824 Mar, [facility] [place] [facility] [address] [id number] [place] [address]- 4469 Mar, [facility] [place] [facility] [address] [id number] [address]- 9907 Mar, [facility] [place] [facility] [address] [id number] [place] [address]- 8781 Mar, [facility] [place] [facility] [address] [id number] [place] [address]- 5403 Mar, [facility] [place] [facility] [address] [id number] [place] [address]- 3651 Mar, [facility] [place] [facility] [address] [id number] [place] [address]- 3389 Mar, [facility] [place] [facility] [address] [id number] [place] [address]- 0803 Mar, [facility] [place] [facility] [address] [id number] [place] [address]- 2943 Mar, [facility] [place] [facility] [address] [id number] [place] [address]- 2916 Feb, [facility] [place] [facility] [address] [id number] [place] [address]- 6557 30 Feb, 2014 [facility] [place] [facility] [address] [id number] [address]- 1215 Feb, [facility] [place] [facility] [address] [id number] [address]- 6163 15 Feb, 2014 [facility] [place] [facility] [address] [id number], [place] [address] Feb, [facility] [place] [facility] [address] [id number], [place] [address] Feb, [facility] [place] [facility] [address] [id number] [place] [address] Feb, [facility] [place] [facility] [address] [id number] [place] [address] Feb, [facility] [place] [facility] [address] [id number] [place] [address] Feb, [facility] [place] [facility] [address] [id number] [place] [address] Feb, [facility] [place] [facility] [address] [id number] [place] [address] Jan, [facility] [place] [facility] [address] [id number] [place] [address] Jan, [facility] [place] [facility] [address] [id number] [place] [address] Jan, [facility] [place] [facility] [address] [id number] [place] [address] Jan, [facility] [place] [facility] [address] [id number] [place] [address] Jan, [facility] [place] [facility] [address] [id number] [place] [address] Jan, [facility] [place] [facility] [address] [id number] [place] [address] Jan, [facility] [place] [facility] [address] [id number] [place] [address] Dec, [facility] [place] [facility] [address] [id number] [place] [address]68 Dec, [facility] [place] [facility] [address] [id number] [place] [address] Dec, [facility] [place] [facility] [address] [id number] [place] [address] Dec, [facility] [place] [facility] [address] [id number] [place] [address] Dec, [facility] [place] [facility] [address] [id number] [place] [address] Dec, [facility] [place] [facility] [address] [id number] [place] [address] Dec, [facility] [place] [facility] [address] [id number] [place] [address] Dec, [facility] [place] [facility] [address] [id number] [place] [address] Oct, [facility] [place] [facility] [address] [id number] [place] [address] Oct, [facility] [place] [facility] [address] [id number] [place] [address] September, [facility] [place] [facility] [address] [id number] [place] [address] September, [facility] [place] [facility] [address] [id number] [place] [address] September, [facility] [place] [facility] [address] [id number] [place] [address] 80[address] September, [facility] [place] [facility] [address] [id number] [place] [address]66 September, [facility] [place] [facility] [address] [id number] [place] [address] September, [facility] [place] [facility] [address] [id number] [place] [address] September, [facility] [place] [facility] [address] [id number] [place] [address] Aug, [facility] [place] [facility] [address] [id number] [place] [address] Aug, [facility] [place] [facility] [address] [id number] [place] [address] Jul, [facility] [place] [facility] [address] [id number] [place] [address] Jul, [facility] [place] [facility] [address] [id number] [place] [address] 17 Jul, 2013 [facility] [place] [facility] [address] [id number] [place] [address] 17 Jul, 2013 [facility] [place] [facility] [address] [id number] [place] [address] 14 Jul, 2013 [facility] [place] [facility] [address] [id number] [place] [address] 14 Jul, 2013 [facility] [place] [facility] [address] [id number] [place] [address] 03 Jul, 2013 [facility] [place] [facility] [address] [id number] [place] [address] 03 Jul, 2013 [facility] [place] [facility] [address] [id number] [place] [address] 15 May, 2013 [facility] [place] [facility] [address] [id number] [place] [address] 15 May, 2013 [facility] [place] [facility] [address] [id number] [place] [address] May, [facility] [place] [facility] [address] [id number] [place] [address] May, [facility] [place] [facility] [address] [id number] [place] [address] 18 Apr, 2013 [facility] [place] [facility] [address] [id number] [place] [address] Mar, [facility] [place] [facility] [address] [id number] [place] [address] Mar, [facility] [place] [facility] [address] [id number] [place] [address]27 Mar, [facility] [place] [facility] [address] [id number] [place] [address] Mar, [facility] [place] [facility] [address] [id number] [place] [address] Mar, [facility] [place] [facility] [address] [id number] [place] [address] Mar, [facility] [place] [facility] [address] [id number] [place] [address] Mar, [facility] [place] [facility] [address] [id number] [place] [address]- [address] Mar, [facility] [place] [facility] [address] [id number] [place] [address] Mar, [facility] [place] [facility] [address] [id number] [place] [address] Mar, [facility] [place] [facility] [address] [id number] [place] [address] Mar, [facility] [place] [facility] [address] [id number] [place] [address] Mar, [facility] [place] [facility] [address] [id number] [address] Feb, [facility] [place] [facility] [address] [id number] [place] [address] Feb, [facility] [place] [facility] [address] [id number] [address] Feb, [facility] [place] [facility] [address] [id number] [address] Feb, [facility] [place] [facility] [address] [id number], [place] [address] Feb, [facility] [place] [facility] [address] [id number] [place] [address] Jan, [facility] [place] [facility] [address] [id number], [place] [address] Dec, [facility] [place] [facility] [address] [id number] [place] [address] Dec, [facility] [place] [facility] [address] [id number] [place] [address] Dec, [facility] [address] [id number] [place] [address] Nov, [facility] [address] [id number] [place] [address] Nov, [facility] [address] [id number] [place] [address] Nov, [facility] [place] [facility] [address] [id number] [place] [address] Oct, [facility] [address] [id number] [place] [address] Oct, [facility] [address] [id number] [place] [address] Oct, [facility] [address] [id number] [place] [address] September, [facility] [address] [id number] [place] [address] September, [facility] [address] [id number] [place] [address] September, [facility] [address] [id number] [place] [address] September, [facility] [address] [id number] [place] [address] September, [facility] [place] [facility] [address] [id number] [place] [address] Aug, [facility] [place] [facility] [address] [id number] [place] [address] Aug, [facility] [place] [facility] [address] [id number] [place] [address] Aug, [facility] [place] [facility] [address] [id number] [place] [address] Jul, [facility] [place] [facility] [address] [id number] [place] [address] Jul, [facility] [address] [id number] [place] [address] Jul, [facility] [address] [id number] [place] [address] Jul, [facility] [address] [id number] [place] [address] Jul, [facility] [address] [id number] [place] [address] Jul, [facility] [address] [id number] [place] [address] Jul, [facility] [address] [id number] [place] [address] May, [facility] [address] [id number] [place] [address] 47[address] May, [facility] [address] [id number] [place] [address] May, [facility] [address] [id number] [place] [address] Apr, [facility] [address] [id number] [place] [address]10 Apr, [facility] [address] [id number] [place] [address] Apr, [facility] [place] [facility] [address] [id number] [place] [address] Apr, [facility] [place] [facility] [address] [id number] [place] [address] Apr, [facility] [place] [facility] [address] [id number] [place] [address] 29 Mar, 2012 [facility] [address] [id number] [place] [address] Mar, [facility] [place] [facility] [address] [id number] [place] [address] Mar, [facility] [place] [facility] [address] [id number] [place] [address] 8636 Mar, [facility] [place] [facility] [address] [id number] [place] [address]296 Feb, [facility] [place] [facility] [address] [id number] [place] [address]159 Feb, [facility] [place] [facility] [address] [id number] [place] [address] 6[address] Feb, [facility] [place] [facility] [address] [id number] [place] [address] 17[address] Feb, [facility] [place] [facility] [address] [id number] [place] [address] 2367 Feb, [facility] [place] [facility] [address] [id number] [place] [address] 7691 Jan, [facility] [place] [facility] [address] [id number] [place] [address] Dec, [facility] [place] [facility] [address] [id number] [place] [address] 7700 Dec, [facility] [place] [facility] [address] [id number] [place] [address] 6[address] Dec, [facility] [place] [facility] [address] [id number] [place] [address] 4007 Nov, [facility] [place] [facility] [address] [id number] [place] [address] 30[address] Nov, [facility] [place] [facility] [address] [id number] [place] [address] 1402 Nov, [facility] [place] [facility] [address] [id number] [place] [address] 5[address] Oct, [facility] [place] [facility] [address] [id number] [place] [address] 19 Oct, 2011 [facility] [address] [id number] [place] [address] 18 Oct, 2011 [facility] [place] [facility] [address] [id number] [place] [address] Oct, [facility] [address] [id number] [place] [address] 9873 September, [facility] [address] [id number] [place] [address] 6827 September, [facility] [address] [id number] [place] [address]- [address]20 30 Aug, 2011 [facility] [address] [id number] [place] [address] Aug, [facility] [address] [id number] [place] [address]- 9454 Aug, [facility] [address] [id number] [place] [address] 9439 Aug, [facility] [address] [id number] [place] [address]- 3540 Aug, [facility] [address] [id number] [place] [address] 8098 Aug, [facility] [address] [id number] [place] [address]- 5[address] Aug, [facility] [address] [id number] [place] [address] 6294 Jul, [facility] [place] [facility] [address] [id number] [place] [address]- 4[address] Jul, [facility] [place] [facility] [address] [id number] [place] [address]- [address] 14 Jul, 2011 [facility] [place] [facility] [address] [id number] [place] [address] 2868 May, [facility] [address] [facility] [address] [id number], [place] [address] May, [facility] [address] [facility] [address] [id number] [address] May, [facility] [address] [facility] [address] [id number], [place] [address]- [address] Apr, [facility] [address] [facility] [address] [id number] [address]168 Apr, [facility] [address] [facility] [address] [id number] [address] Mar, [facility] [address] [facility] [address] [id number], [place] [address] Mar, [facility] [id number], [place] [address] 80[address] Mar, [facility] [id number], [place] [address]607 Mar, [facility] [address] [facility] [address] [id number], [place] [address]- [address] Mar, [facility] [id number], [place] [address]- [address] Mar, [facility] [address] [id number], [place] [address]- [address] Feb, [facility] [address] [id number], [place] [address]- [address]76 Feb, [facility] [address] [facility] [address] [id number], [place] [address]- [address] Feb, IMMUNIZATIONS No Known Immunizations SOCIAL HISTORY Never Assessed REASON FOR VISIT Controlled Med Refill 01/07 PLAN OF CARE VITAL SIGNS MEDICATIONS Medication Instructions Dosage Frequency Start Date End Date Duration Status Hydrocodone-Acetaminophen 10-325 MG Orally every 6 hrs 1 tablet as needed 6h 10 Dec, 2017 28 days Active Lyrica 225 mg Orally Twice a day 1 capsule 12h 30 Active Soma 350 mg Orally Once a day 1 tablet as needed 24h Active Xanax 1 MG Orally TID PRN 1 tablet May, Active MS Contin 30 MG Orally every 8 hours 1 tablet 8h 10 Dec, 2017 28 days Active RESULTS No Results PROCEDURES [...]
--- OUTSIDE RECORDS SUMMARY | 2018-05-16 06:57 | XMS REPORT ---
Author Author FERNY SILVERIO Organization [facility] Address [address] [place] [address] Care Team Providers Care Insurance Marketing Specialist Name Role Phone FERNY SILVERIO Unavailable PROBLEMS Type Condition ICD9-CM Code NKS13-YC Code Onset Dates Condition Status SNOMED Code Problem Hypoxia R09.02 Active 624813439 Problem Port catheter in place Z95.828 Active 593480354 Problem Anxiety F41.9 Active 05261928 Problem Type 2 diabetes mellitus with diabetic peripheral angiopathy without gangrene E11.51 Active 621391297 Problem Pressure ulcer of other site, stage 3 L89.893 Active 774865474 Problem Lumbar radiculopathy, chronic M54.16 Active 647844700 Problem PAD (peripheral artery disease) I73.9 Active 821527603 Problem 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 Active 524849887 Problem Recurrent major depressive disorder, in full remission F33.42 Active 387377894 Problem Diabetes E11.9 Active 87214276 Problem Hypertension I10 Active 83247685 Problem Back pain M54.9 Active 975717983 Problem Insulin long-term use Z79.4 Active 087678570 Problem COPD (chronic obstructive pulmonary disease) J44.9 Active 15597493 ALLERGIES No Information ENCOUNTERS Encounter Location Date Diagnosis [facility] [id number] [address] Dec, [facility] [id number] [address] Dec, Diabetes E11.9 ; Type 2 diabetes mellitus with diabetic peripheral angiopathy without gangrene E11.51 ; Lumbar radiculopathy, chronic M54.16 ; COPD (chronic obstructive pulmonary disease) J44.9 and Anxiety F41.9 [facility] [id number] [address] Dec, Back pain M54.9 and Anxiety F41.9 [facility] [id number] [place] [address] 46436- 4458 Nov, Back pain M54.9 and Anxiety F41.9 [facility] [id number] [place] [address] 87604- 0777 Oct, [facility] [id number] [place] [address] 97544- 5281 Oct, Back pain M54.9 and Anxiety F41.9 [facility] [id number] [place] [address] 24200- 3189 September, Anxiety F41.9 and Back pain M54.9 [facility] [id number] [place] [address] 84584- 3388 September, Diabetes E11.9 ; Hypertension I10 ; COPD (chronic obstructive pulmonary disease) J44.9 and Lumbar radiculopathy, chronic M54.16 [facility] [id number] [place] [address] 39008- 2884 September, Anxiety F41.9 [facility] [id number] [place] [address] 15427- 8661 Aug, [facility] [id number] [place] [address] 21880- 3902 Aug, [facility] [id number] [place] [address] 93879- 0337 Aug, Anxiety F41.9 and Back pain M54.9 [facility] [id number] [place] [address] 33949- 4350 Aug, Medicare annual wellness visit, initial Z00.00 ; COPD ( chronic obstructive pulmonary disease) J44.9 ; PAD (peripheral artery disease) I73.9 ; Insulin long-term use Z79.4 ; Hypertension I10 ; Anxiety F41.9 ; Recurrent major depressive disorder, in full remission F33.42 ; Pressure ulcer of other site, stage 3 L89.893 ; Type 2 diabetes mellitus with diabetic peripheral angiopathy without gangrene E11.51 and FPC current use of insulin Z79.4 [facility] [id number] [place] [address] 19956- 0197 Jul, Back pain M54.9 [facility] [id number] [place] [address] 77486- 4999 Jul, [facility] [id number] [place] [address] 15028- 1561 Jul, Anxiety F41.9 and Back pain M54.9 [facility] [id number] [place] [address] 86760- 1026 Jul, Diabetes E11.9 [facility] [id number] [place] [address] 35081- 2831 May, [facility] [id number] [place] [address] 31310- 1289 May, Diabetes E11.9 ; Anxiety F41.9 ; Back pain M54.9 and COPD ( chronic obstructive pulmonary disease) J44.9 [facility] [id number] [place] [address] 21263- 1734 May, Back pain M54.9 [facility] [id number] [place] [address] 98023- 6436 May, [facility] [id number] [place] [address] 87441- 3341 Apr, Back pain M54.9 [facility] [id number] [place] [address] 86468- 3605 Mar, Back pain M54.9 [facility] [id number] [place] [address] 64333- 0325 Mar, [facility] [id number] [place] [address] 14585- 1506 Mar, [facility] [id number] [place] [address] 12940- 1178 14 Mar, 2017 Radiculopathy of lumbar region M54.16 [facility] [address] 55684- 6484 13 Mar, 2017 [facility] [address] 78673- 9922 07 Mar, 2017 Encounter for immunization Z23 and Lumbar radiculopathy, chronic M54.16 [facility] [address] 94490- 5362 01 Mar, 2017 Back pain M54.9 and Anxiety F41.9 [facility] [address] 39995 -3272 10 Feb, 2017 Acute bilateral low back pain with left-sided sciatica M54.42 and Acute bilateral low back pain with right-sided sciatica M54.41 [facility] [facility] [address] 37273- 8015 Feb, [place] [facility] [address] 31464- 3875 Feb, Back pain M54.9 [facility] [facility] [address] 02833- 7194 05 Jan, 2017 Back pain M54.9 and Anxiety F41.9 [facility] [id number] [place] [address] 33411- 3734 05 Jan, 2017 Diabetes E11.9 [facility] [id number] [place] [address] 09466- 4858 14 Dec, 2016 Diabetes E11.9 ; Back pain M54.9 ; Anxiety F41.9 and Insulin long-term use Z79.4 [facility] [id number] [place] [address] 25569- 4293 Dec, Anxiety F41.9 [facility] [address] 08098- 1191 08 Dec, 2016 Back pain M54.9 [facility] [id number] [place] [address] 22542- 9040 Nov, Back pain M54.9 [facility] [id number] [place] [address] 16024- 7936 Oct, Back pain M54.9 and Anxiety F41.9 [facility] [id number] [place] [address] 90082- 0633 September, Back pain M54.9 [facility] [id number] [place] [address] 26967- 1457 September, Back pain M54.9 and Anxiety F41.9 [facility] [id number] [place] [address] 67127- 1149 Aug, Diabetes E11.9 ; Anxiety F41.9 ; Back pain M54.9 and PAD ( peripheral artery disease) I73.9 [facility] [id number] [place] [address] 38967- 5546 Aug, Anxiety F41.9 [facility] [id number] [place] [address] 14414- 6052 Aug, Back pain M54.9 [facility] [id number] [place] [address] 09626- 7338 23 Jul, 2016 Back pain M54.9 [facility] [id number] [place] [address] 00334- 7372 13 Jul, 2016 Back pain M54.9 [facility] [id number] [place] [address] 08434- 6461 23 Jul, 2016 Back pain M54.9 [facility] [id number] [place] [address] 03071- 0216 16 Jul, 2016 Dorsalgia M54.9 [facility] [id number] [place] [address] 88417- 6550 14 Jul, 2016 [facility] [id number] [place] [address]- 5829 May, Back pain M54.9 [facility] [address] 19813- 6995 May, Diabetes E11.9 ; Anxiety F41.9 ; Port catheter in place Z95.828 ; Encounter for immunization Z23 and Insulin long-term use Z79.4 [facility] [address] 12374- 8000 Apr, Back pain M54.9 [facility] [address] 01520- 2144 Apr, Back pain M54.9 [facility] [address] 76316- 1380 Apr, [facility] [address] 69343- 0682 Apr, Back pain M54.9 [facility] [id number] [place] [address] 72796- 5348 Mar, COPD (chronic obstructive pulmonary disease) J44.9 [facility] [id number] [place] [address] 51932- 3715 Feb, [facility] [id number] [place] [address] 85638- 9876 30 Jan, 2016 [facility] [id number] [place] [address] 69092- 4053 Jan, [facility] [id number] [place] [address] 34448- 6934 Jan, [facility] [address] 28810- 0543 Jan, [facility] [id number] [place] [address] 16931- 3279 Dec, Diabetes E11.9 ; Hypoxia R09.02 and Back pain M54.9 [facility] [address], [place] [address]- 8730 Dec, [facility] [id number] [place] [address] 41591- 5640 Nov, [facility] [id number] [place] [address] 36985- 8327 Oct, Anxiety F41.9 [facility] [id number] [place] [address] 87444- 4228 Oct, Back pain M54.9 [facility] [id number] [place] [address] 25503- 5765 September, Back pain M54.9 [facility] [id number] [place] [address] 29769- 0623 September, Diabetes E11.9 [facility] [id number] [place] [address] 83728- 7154 September, [facility] [id number] [place] [address] 23552- 6106 September, Diabetes E11.9 ; Insulin long-term use Z79.4 and Back pain M54.9 [facility] [id number] [place] [address] 64857- 8047 Aug, Back pain M54.9 [facility] [id number] [place] [address] 94130- 0885 Aug, Back pain M54.9 ; Anxiety F41.9 and Arthropathy, unspecified M12.9 [facility] [address], [place] [address]- 4872 Jul, Back pain M54.9 [facility] [id number] [place] [address] 69462- 6481 Jul, Anxiety F41.9 [facility] [address], [place] [address]- 3175 Jul, Back pain M54.9 [facility] [address], [place] [address]- 1808 17 Jul, 2015 [facility] [id number] [place] [address] 83880- 1885 Jul, [facility] [address], [place] [address]- 2593 May, Back pain M54.9 ; Diabetes E11.9 ; Insulin long-term use Z79.4 ; COPD (chronic obstructive pulmonary disease) J44.9 and Hypertension I10 [facility] [id number] [place] [address] 26427- 0870 May, Chronic pain G89.29 [facility] [id number] [place] [address] 12048- 2922 Apr, [facility] [id number] [place] [address] 13042- 3309 Apr, [facility] [id number] [place] [address] 90868- 5598 Mar, [facility] [id number] [place] [address] 10616- 8890 Mar, Encounter for immunization Z23 and Diabetes E11.9 [facility] [address], [place] [address]- 4261 Feb, [facility] [id number] [place] [address] 06387- 8898 Feb, [facility] [address], [place] [address]- 5802 23 Jan, 2015 [facility] [id number] [place] [address] 63204- 0081 16 Jan, 2015 [facility] [address] [address]- 8911 Dec, [facility] [id number] [place] [address] 64288- 3609 Dec, [facility] [address] [id number] [place] [address]- 3984 Dec, Unspecified arthropathy, site unspecified 716.90 and Diabetes mellitus type 2, uncontrolled 250.02 [facility] [address] [id number] [place] [address]- 3956 Dec, [facility] [address] [id number] [place] [address]- 3551 Nov, [facility] [address] [id number] [place] [address]- 4380 Oct, [facility] [address] [id number] [place] [address]- 5902 September, [facility] [address] [id number] [place] [address]- 2107 September, [facility] [address] [facility] [id number] [place] [address]- 3826 September, [facility] [address] [id number] [place] [address]- 7758 September, [facility] [address] [id number] [place] [address]- 4304 Aug, [facility] [address] [facility] [id number] [place] [address]- 3883 Aug, [facility] [address] [id number] [place] [address]- 5343 Jul, [facility] [address] [id number] [place] [address]- 6932 18 Jul, 2014 [facility] [address] [id number] [place] [address]- 7515 16 Jul, 2014 [facility] [address] [id number] [place] [address]- 5496 16 Jul, 2014 [facility] [address] [id number] [place] [address]- 7598 16 Jul, 2014 [facility] [place] [facility] [address] [id number] [place] [address]- 0472 16 Jul, 2014 [facility] [place] [facility] [address] [id number] [place] [address]- 6160 16 Jul, 2014 [facility] [place] [facility] [address] [id number] [place] [address]- 6302 16 Jul, 2014 [facility] [place] [facility] [address] [id number] [place] [address]- 1080 16 Jul, 2014 [facility] [place] [facility] [address] [id number] [place] [address]- 0800 13 Jul, 2014 [facility] [place] [facility] [address] [id number] [place] [address]- 8895 13 Jul, 2014 [facility] [place] [facility] [address] [id number] [place] [address]- 7275 09 Jul, 2014 [facility] [place] [facility] [address] [id number] [place] [address]- 9376 09 Jul, 2014 [facility] [place] [facility] [address] [id number] [place] [address]- 1000 17 Jul, 2014 [facility] [place] [facility] [address] [id number] [place] [address]- 9674 17 Jul, 2014 [facility] [place] [facility] [address] [id number] [place] [address]- 8256 16 Jul, 2014 [facility] [place] [facility] [address] [id number], [place] [address]- 5545 16 Jul, 2014 [facility] [place] [facility] [address] [id number] [place] [address]- 0521 16 Jul, 2014 [facility] [place] [facility] [address] [id number] [place] [address]- 9988 16 Jul, 2014 [facility] [place] [facility] [address] [id number] [place] [address]- 3764 16 Jul, 2014 [facility] [place] [facility] [address] [id number] [place] [address]- 6768 16 Jul, 2014 [facility] [place] [facility] [address] [id number] [place] [address]- 6534 Jul, 2014 [facility] [place] [facility] [address] [id number] [place] [address]- 6336 16 Jul, 2014 [facility] [place] [facility] [address] [id number] [place] [address]- 3246 Jul, 2014 [facility] [place] [facility] [address] [id number] [place] [address]- 8226 Jul, 2014 [facility] [place] [facility] [address] [id number] [place] [address]- 5648 Jul, 2014 [facility] [place] [facility] [address] [id number] [place] [address]- 7373 Jul, 2014 [facility] [place] [facility] [address] [id number] [place] [address]- 2179 Jul, 2014 [facility] [place] [facility] [address] [id number] [place] [address]- 7454 Jul, [facility] [place] [facility] [address] [id number] [place] [address]- 5199 May, [facility] [place] [facility] [address] [id number] [place] [address]- 2226 May, [facility] [place] [facility] [address] [id number] [place] [address]- 2492 May, [facility] [place] [facility] [address] [id number] [place] [address]- 9044 May, [facility] [place] [facility] [address] [id number] [place] [address]- 4891 May, [facility] [place] [facility] [address] [id number] [place] [address]- 8726 May, [facility] [place] [facility] [address] [id number] [place] [address]- 6827 May, [facility] [place] [facility] [address] [id number] [place] [address]- 6571 May, [facility] [place] [facility] [address] [id number] [place] [address]- 6555 May, [facility] [place] [facility] [address] [id number] [place] 4045 May, [facility] [place] [facility] [address] [id number] [place] [address]- 0628 Apr, [facility] [place] [facility] [address] [id number] [place] [address]- 0053 Apr, [facility] [place] [facility] [address] [id number] [place] [address]- 9627 Apr, [facility] [place] [facility] [address] [id number] [place] [address]- 0149 Apr, [facility] [place] [facility] [address] [id number] [place] [address]- 0932 Apr, [facility] [place] [facility] [address] [id number] [place] [address]- 9908 Apr, [facility] [place] [facility] [address] [id number] [place] [address]- 7954 Mar, [facility] [place] [facility] [address] [id number] [place] [address]- 2321 Mar, [facility] [place] [facility] [address] [id number], [place] [address]- 2697 Mar, [facility] [place] [facility] [address] [id number] [place] [address]- 0262 Mar, [facility] [place] [facility] [address] [id number] [place] [address]- 6161 Mar, [facility] [place] [facility] [address] [id number] [place] [address]- 4181 Mar, [facility] [place] [facility] [address] [id number] [place] [address]- 0041 Mar, [facility] [place] [facility] [address] [id number] [place] [address]- 1717 Mar, [facility] [place] [facility] [address] [id number] [place] [address]- 8405 Mar, [facility] [place] [facility] [address] [id number] [place] 7683 Mar, [facility] [place] [facility] [address] [id number] [place] [address]- 5207 Mar, [facility] [place] [facility] [address] [id number] [place] [address]- 8853 Feb, [facility] [place] [facility] [address] [id number] [place] [address]- 9417 Feb, [facility] [place] [facility] [address] [id number] [place] [address]- 8185 Feb, [facility] [place] [facility] [address] [id number] [place] [address]- 9454 Feb, [facility] [place] [facility] [address] [id number] [place] [address]- 3748 Feb, [facility] [place] [facility] [address] [id number] [place] [address]- 1937 Feb, [facility] [place] [facility] [address] [id number] [place] [address]- 1027 Feb, [facility] [place] [facility] [address] [id number] [place] [address]- 8785 Feb, [facility] [place] [facility] [address] [id number] [place] 3837 Feb, [facility] [place] [facility] [address] [id number] [place] [address]- 5578 Feb, [facility] [place] [facility] [address] [id number] [place] [address]- 9670 Jan, [facility] [place] [facility] [address] [id number] [place] [address]- 3129 22 Jan, 2013 [facility] [place] [facility] [address] [id number] [place] [address]- 4911 16 Jan, 2014 [facility] [place] [facility] [address] [id number] [place] [address]- 8167 16 Jan, 2013 [facility] [place] [facility] [address] [id number] [place] [address]- 0824 12 Jan, 2014 [facility] [place] [facility] [address] [id number] [place] [address]- 1724 Jan, [facility] [place] [facility] [address] [id number] [place] [address]- 0772 Jan, [facility] [place] [facility] [address] [id number] [place] [address]- 7942 Dec, [facility] [place] [facility] [address] [id number] [place] [address] Dec, [facility] [place] [facility] [address] [id number] [place] [address] Dec, [facility] [place] [facility] [address] [id number] [place] [address] Dec, [facility] [place] [facility] [address] [id number] [place] [address] Dec, [facility] [place] [facility] [address] [id number] [place] [address] Dec, [facility] [place] [facility] [address] [id number] [place] [address] Dec, [facility] [place] [facility] [address] [id number] [place] [address] Dec, [facility] [place] [facility] [address] [id number] [place] [address] Oct, [facility] [place] [facility] [address] [id number], [place] [address] Oct, [facility] [place] [facility] [address] [id number] [place] [address] September, [facility] [place] [facility] [address] [id number] [place] [address] September, [facility] [place] [facility] [address] [id number] [place] [address] September, [facility] [place] [facility] [address] [id number] [place] [address] September, [facility] [place] [facility] [address] [id number] [place] [address] September, [facility] [place] [facility] [address] [id number] [place] [address] September, [facility] [place] [facility] [address] [id number] [place] [address] September, [facility] [place] [facility] [address] [id number] [place] [address] Aug, [facility] [place] [facility] [address] [id number] [place] [address] Aug, [facility] [place] [facility] [address] [id number] [place] [address] Jul, [facility] [place] [facility] [address] [id number] [place] [address] Jul, [facility] [place] [facility] [address] [id number] [place] [address] Jul, [facility] [place] [facility] [address] [id number] [place] [address] Jul, [facility] [place] [facility] [address] [id number] [place] [address] Jul, [facility] [place] [facility] [address] [id number] [place] [address] Jul, [facility] [place] [facility] [address] [id number] [place] [address] Jul, [facility] [place] [facility] [address] [id number] [place] [address]- [address] Jul, [facility] [place] [facility] [address] [id number] [place] [address]- [address] May, [facility] [place] [facility] [address] [id number] [place] [address] May, [facility] [place] [facility] [address] [id number] [place] [address] May, [facility] [place] [facility] [address] [id number] [place] [address] May, [facility] [place] [facility] [address] [id number] [place] [address] Apr, [facility] [place] [facility] [address] [id number] [place] [address] Mar, [facility] [place] [facility] [address] [id number] [place] [address] Mar, [facility] [place] [facility] [address] [id number] [place] [address] Mar, [facility] [place] [facility] [address] [id number] [place] [address] Mar, [facility] [place] [facility] [address] [id number], [place] [address] Mar, [facility] [place] [facility] [address] [id number] [place] [address] Mar, [facility] [place] [facility] [address] [id number] [place] [address] Mar, [facility] [place] [facility] [address] [id number], [place] [address] Mar, [facility] [place] [facility] [address] [id number], [place] [address] Mar, [facility] [place] [facility] [address] [address] [id number] [place] [address] Mar, [facility] [place] [facility] [address] [id number] [place] [address] Mar, [facility] [place] [facility] [address] [id number] [place] [address] Mar, [facility] [place] [facility] [address] [id number] [place] [address] Feb, [facility] [place] [facility] [address] [id number] [place] [address] Feb, [facility] [place] [facility] [address] [id number] [place] [address] Feb, [facility] [place] [facility] [address] [id number] [place] [address] Feb, [facility] [place] [facility] [address] [id number] [place] [address] Feb, [facility] [place] [facility] [address] [id number] [place] [address] Jan, [facility] [place] [facility] [address] [id number] [place] [address]14 Dec, [facility] [place] [facility] [address] [id number] [place] [address]69 Dec, [facility] [place] [facility] [address] [id number] [place] [address] Dec, [facility] [place] [facility] [address] [id number] [place] [address] Nov, [facility] [place] [facility] [address] [id number] [place] [address]78 Nov, [facility] [place] [facility] [address] [id number] [place] [address]7 Nov, [facility] [place] [facility] [address] [id number] [place] [address] Oct, [facility] [address] [id number] [place] [address] 90[address] Oct, [facility] [address] [id number] [place] [address] Oct, [facility] [address] [id number] [place] [address] September, [facility] [address] [id number] [place] [address] 4[address] September, [facility] [address] [id number] [place] [address] September, [facility] [address] [id number] [place] [address] 3299 September, [facility] [address] [id number] [place] [address] 9644 September, [facility] [address] [id number] [place] [address] 8069 Aug, [facility] [address] [id number] [place] [address] 1416 Aug, [facility] [address] [id number] [place] [address] 3888 Aug, [facility] [address] [id number] [place] [address]872 Jul, [facility] [address] [id number] [place] [address] Jul, [facility] [place] [facility] [address] [id number] [place] [address] Jul, [facility] [address] [id number] [place] [address] Jul, [facility] [address] [id number] [place] [address] 8318 Jul, [facility] [address] [id number] [place] [address]134 Jul, [facility] [place] [facility] [address] [id number] [place] [address] 6466 Jul, [facility] [place] [facility] [address] [id number] [place] [address] 4687 May, [facility] [place] [facility] [address] [id number] [place] [address] 4910 May, [facility] [place] [facility] [address] [id number] [place] [address] May, [facility] [place] [facility] [address] [id number] [place] [address] Apr, [facility] [place] [facility] [address] [id number] [place] [address] Apr, [facility] [place] [facility] [address] [id number] [place] [address] 1467 Apr, [facility] [place] [facility] [address] [id number] [place] [address] Apr, [facility] [place] [facility] [address] [id number] [place] [address] Apr, [facility] [place] [facility] [address] [id number], [place] [address] Mar, [facility] [place] [facility] [address] [id number], [place] [address] 29 Mar, 2012 [facility] [place] [facility] [address] [id number] [place] [address] 1624 Mar, [facility] [place] [facility] [address] [id number], [place] [address] 15 Mar, 2012 [facility] [place] [facility] [address] [id number] [place] [address] 4430 Feb, [facility] [place] [facility] [address] [id number] [place] [address]- 7252 Feb, [facility] [place] [facility] [address] [id number] [place] [address]- 1440 Feb, [facility] [place] [facility] [address] [id number] [place] [address]- 5816 Feb, [facility] [place] [facility] [address] [id number] [place] [address] 8366 Feb, [facility] [place] [facility] [address] [id number] [place] [address]- 7646 Jan, [facility] [place] [facility] [address] [id number] [place] [address] 7537 Dec, [facility] [place] [facility] [address] [id number] [place] [address]249 Dec, [facility] [place] [facility] [address] [id number] [place] [address] 7634 Dec, [facility] [place] [facility] [address] [id number] [place] [address] 3352 Nov, [facility] [place] [facility] [address] [id number] [place] [address]- 1288 Nov, [facility] [place] [facility] [address] [facility] [id number] [place] [address] 5713 Nov, [facility] [place] [facility] [address] [id number] [place] [address] Oct, [facility] [place] [facility] [address] [id number] [place] [address] 6684 Oct, [facility] [place] [facility] [address] [id number] [place] [address] 2881 Oct, [facility] [place] [facility] [address] [id number] [place] [address] 6180 Oct, [facility] [place] [facility] [address] [id number] [place] [address] 6960 September, [facility] [place] [facility] [address] [id number] [place] [address] 5674 September, [facility] [address] [id number] [place] [address] 6574 Aug, [facility] [address] [id number] [place] [address] 7706 Aug, [facility] [address] [id number] [place] [address] 6989 Aug, [facility] [address] [id number] [place] [address]- 6640 Aug, [facility] [address] [id number] [place] [address]- 9500 Aug, [facility] [address] [id number] [place] [address]- 8701 Aug, [facility] [address] [id number] [place] [address]- 0682 Aug, [facility] [address] [id number] [place] [address] 5[address] Jul, [facility] [address] [id number] [place] [address]- 0951 Jul, [facility] [address] [id number] [place] [address]- 8209 Jul, [facility] [address] [id number] [place] [address]- 7425 May, [facility] [address] [id number] [place] [address]- 0347 May, [facility] [place] [facility] [address] [id number] [place] [address]- 9876 May, [facility] [address] [id number] [place] [address]- 8235 Apr, [facility] [address] [id number][place] [address] Apr, [facility] [address] [facility] [id number], [place] [address] Mar, [facility] [address] [facility] [id number], [place] [address]- 5533 Mar, [facility] [address] [facility] [id number], [place] [address]- 4324 Mar, [facility] [address] [facility] [id number], [place] [address]- 7533 Mar, [facility] [address] [facility] [id number], [place] [address]- 8079 Mar, [facility] [id number], [place] [address] Mar, [facility] [id number], [place] [address] Feb, [facility] [id number], [place] [address] Feb, [facility] [address] [id number], [place] [address]- [address]25 Feb, IMMUNIZATIONS No Known Immunizations SOCIAL HISTORY Never Assessed REASON FOR VISIT PLAN OF CARE VITAL SIGNS MEDICATIONS Unknown [...]
--- OUTSIDE RECORDS SUMMARY | 2018-05-16 06:58 | XMS REPORT ---
Author Author FERNY SILVERIO [facility] Address [address] [place] [address] Care Team Providers Care Supervisor [employer] Name Role Phone FERNY SILVERIO Unavailable PROBLEMS Type Condition ICD9-CM Code RTZ69-KE Code Onset Dates Condition Status SNOMED Code Problem Hypoxia R09.02 Active 598323068 Problem Port catheter in place Z95.828 Active 692232146 Problem Anxiety F41.9 Active 19343374 Problem Type 2 diabetes mellitus with diabetic peripheral angiopathy without gangrene E11.51 Active 692396940 Problem Pressure ulcer of other site, stage 3 L89.893 Active 412731538 Problem Lumbar radiculopathy, chronic M54.16 Active 108565148 Problem PAD (peripheral artery disease) I73.9 Active 911217482 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 Active 531157175 Problem Recurrent major depressive disorder, in full remission F33.42 Active 584601880 Problem Diabetes E11.9 Active 84761796 Problem Hypertension I10 Active 05312891 Problem Back pain M54.9 Active 135654213 Problem Insulin long-term use Z79.4 Active 735443565 Problem COPD (chronic obstructive pulmonary disease) J44.9 Active 39943615 ALLERGIES No Information ENCOUNTERS Encounter Location Date Diagnosis [facility] [id number] [place] [address] 75078- 7891 Dec, Diabetes E11.9 ; Type 2 diabetes mellitus with diabetic peripheral angiopathy without gangrene E11.51 ; Lumbar radiculopathy, chronic M54.16 ; COPD (chronic obstructive pulmonary disease) J44.9 and Anxiety F41.9 [facility] [address], [place] [address] 9193 Dec, Back pain M54.9 and Anxiety F41.9 [facility] [id number] [place] [address] 33435- 9515 Nov, Back pain M54.9 and Anxiety F41.9 [facility] [id number] [place] [address] 97046- 7418 Oct, [facility] [id number] [place] [address] 31627- 9128 Oct, Back pain M54.9 and Anxiety F41.9 [facility] [id number] [place] [address] 24375- 3322 September, Anxiety F41.9 and Back pain M54.9 [facility] [id number] [place] [address] 32192- 0734 September, Diabetes E11.9 ; Hypertension I10 ; COPD (chronic obstructive pulmonary disease) J44.9 and Lumbar radiculopathy, chronic M54.16 [facility] [id number] [place] [address] 03831- 6660 September, Anxiety F41.9 [facility] [id number] [place] [address] 82613- 1668 Aug, [facility] [id number] [place] [address] 96585- 5811 Aug, [facility] [id number] [place] [address] 37604- 0402 Aug, Anxiety F41.9 and Back pain M54.9 [facility] [id number] [place] [address] 16491- 3001 Aug, Medicare annual wellness visit, initial Z00.00 [...] 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.4 [facility] [address], [place] [address] 2762 Jul, Back pain M54.9 [facility] [id number] [place] [address] 09532- 7626 Jul, [facility] [id number] [place] [address] 35403- 2171 Jul, Anxiety F41.9 and Back pain M54.9 [facility] [id number] [place] [address] 76547- 5295 Jul, Diabetes E11.9 [facility] [id number] [place] [address] 03951- 3453 May, [facility] [id number] [place] [address] 64468- 3455 May, Diabetes E11.9 ; Anxiety F41.9 ; Back pain M54.9 and COPD ( chronic obstructive pulmonary disease) J44.9 [facility] [id number] [place] [address] 47645- 9796 May, Back pain M54.9 [facility] [id number] [place] [address] 15261- 6838 May, [facility] [id number] [place] [address] 51107- 8569 Apr, Back pain M54.9 [facility] [id number] [place] [address] 93094- 2555 Mar, Back pain M54.9 [facility] [id number] [place] [address] 50793- 7495 Mar, [facility] [id number] [place] [address] 48723- 4616 16 Mar, 2017 [facility] [id number] [place] [address] 02034- 0991 14 Mar, 2017 Radiculopathy of lumbar region M54.16 [facility] [id number] [place] [address] 50854- 1977 13 Mar, 2017 [facility] [address] 60296- 7026 07 Mar, 2017 Encounter for immunization Z23 and Lumbar radiculopathy, chronic M54.16 [facility] [id number] [place] [address] 25032- 4888 Mar, Back pain M54.9 and Anxiety F41.9 [facility] [id number] [place] [address] 99022 -0880 10 Feb, 2017 Acute bilateral low back pain with left-sided sciatica M54.42 and Acute bilateral low back pain with right-sided sciatica M54.41 [facility] [id number] [place] [address] 97414- 4750 Feb, [facility] [address] 74319- 0237 Feb, Back pain M54.9 [facility] [id number] [place] [address] 14043- 2793 05 Jan, 2017 Back pain M54.9 and Anxiety F41.9 [facility] [id number] [place] [address] 06346- 8485 05 Jan, 2017 Diabetes E11.9 [facility] [id number] [place] [address] 48477- 8340 14 Dec, 2016 Diabetes E11.9 ; Back pain M54.9 ; Anxiety F41.9 and Insulin long-term use Z79.4 [facility] [id number] [place] [address] 26105- 4648 Dec, Anxiety F41.9 [facility] [id number] [place] [address] 31359- 0457 08 Dec, 2016 Back pain M54.9 [facility] [id number] [place] [address] 91000- 8215 Nov, Back pain M54.9 [facility] [id number] [place] [address] 43112- 9056 Oct, Back pain M54.9 and Anxiety F41.9 [facility] [id number] [place] [address] 01986- 8133 September, Back pain M54.9 [facility] [address] 99668- 3688 September, Back pain M54.9 and Anxiety F41.9 [facility] [id number] [place] [address] 83921- 4342 Aug, Diabetes E11.9 ; Anxiety F41.9 ; Back pain M54.9 and PAD ( peripheral artery disease) I73.9 [facility] [id number] [place] [address] 32246- 5045 Aug, Anxiety F41.9 [facility] [id number] [place] [address] 75086- 6717 Aug, Back pain M54.9 [facility] [id number] [place] [address] 71199- 5044 Jul, Back pain M54.9 [facility] [id number] [place] [address] 94181- 3058 Jul, Back pain M54.9 [facility] [id number] [place] [address] 59464- 5863 23 Jul, 2016 Back pain M54.9 [facility] [id number] [place] [address] 14336- 6650 16 Jul, 2016 Dorsalgia M54.9 [facility] [id number] [place] [address] 21877- 8908 14 Jul, 2016 [facility] [id number] [place] [address] 27708- 2172 May, Back pain M54.9 [facility] [id number] [place] [address] 23145- 6076 May, Diabetes E11.9 ; Anxiety F41.9 ; Port catheter in place Z95.828 ; Encounter for immunization Z23 and Insulin long-term use Z79.4 [facility] [id number] [place] [address] 75248- 7865 Apr, Back pain M54.9 [facility] [address] 97244- 4242 Apr, Back pain M54.9 [facility] [id number] [place] [address] 15721- 9657 Apr, [facility] [id number] [place] [address] 14990- 4391 Apr, Back pain M54.9 [facility] [id number] [place] [address] 92738- 9997 Mar, COPD (chronic obstructive pulmonary disease) J44.9 [facility] [id number] [place] [address] 12652- 4979 Feb, [facility] [id number] [place] [address] 42161- 0974 30 Jan, 2016 [facility] [id number] [place] [address] 16078- 0318 Jan, [facility] [id number] [place] [address] 26999- 6833 Jan, [facility] [id number] [place] [address] 54390- 0463 Jan, [facility] [address] 44782- 5983 Dec, Diabetes E11.9 ; Hypoxia R09.02 and Back pain M54.9 [facility] [id number] [place] [address] 77533- 9219 Dec, [facility] [address] [place] [address] 40010- 7922 15 Nov, 2015 [facility] [id number] [place] [address] 04883- 8296 Oct, Anxiety F41.9 [facility] [id number] [place] [address] 31816- 8301 Oct, Back pain M54.9 [facility] [id number] [place] [address] 24673- 3196 September, Back pain M54.9 [facility] [id number] [place] [address] 63977- 2332 September, Diabetes E11.9 [facility] [id number] [place] [address] 60249- 6053 September, [facility] [id number] [place] [address] 55012- 5317 September, Diabetes E11.9 ; Insulin long-term use Z79.4 and Back pain M54.9 [facility] [id number] [place] [address] 51249- 2256 Aug, Back pain M54.9 [facility] [id number] [place] [address] 52563- 5664 Aug, Back pain M54.9 ; Anxiety F41.9 and Arthropathy, unspecified M12.9 [facility] [address] [place] [address] 83383- 1385 Jul, Back pain M54.9 [facility] [id number] [place] [address] 86038- 5612 Jul, Anxiety F41.9 [facility] [id number] [place] [address] 96366- 7212 Jul, Back pain M54.9 [facility] [id number] [place] [address] 58388- 5243 Jul, [facility] [address], [place] [address]- 1476 Jul, [facility] [id number] [place] [address] 69923- 6634 May, Back pain M54.9 ; Diabetes E11.9 ; Insulin long-term use Z79.4 ; COPD (chronic obstructive pulmonary disease) J44.9 and Hypertension I10 [facility] [id number] [place] [address] 50653- 0699 May, Chronic pain G89.29 [facility] [id number] [place] [address] 66756- 6439 Apr, [facility] [id number] [place] [address] 27158- 0524 Apr, [facility] [id number] [place] [address] 53513- 2762 Mar, [facility] [id number] [place] [address] 40537- 3870 Mar, Encounter for immunization Z23 and Diabetes E11.9 [facility] [id number] [place] [address] 64176- 4410 Feb, [facility] [id number] [place] [address] 38534- 7882 Feb, [facility] [address] [place] [address] 28961- 6971 Jan, [facility] [id number] [place] [address] 34152- 6877 Jan, [facility] [id number] [place] [address] 92592- 5715 Dec, [facility] [id number] [place] [address] 65933- 7051 Dec, [facility] [address] [place] [address] 89666- 5145 Dec, Unspecified arthropathy, site unspecified 716.90 and Diabetes mellitus type 2, uncontrolled 250.02 [facility] [address] [id number] [place] [address]- 6407 Dec, [facility] [address] [id number] [place] [address]- 0817 Nov, [facility] [address] [facility] [id number] [place] [address]- 6320 Oct, [facility] [address] [id number] [place] [address]- 8543 September, [facility] [address] [facility] [id number] [place] [address]- 7064 September, [facility] [address] [facility] [id number] [place] [address]- 4646 September, [facility] [address] [place] [address]- 2656 September, [facility] [address] [facility] [id number] [place] [address]- 5385 Aug, [facility] [address] [facility] [id number] [place] [address]- 9978 Aug, [facility] [address] [facility] [id number] [place] [address]- 7509 Jul, [facility] [address] [facility] [id number] [place] [address]- 9555 18 Jul, 2014 [facility] [address] [id number], [place] [address]- 5039 16 Jul, 2014 [facility] [address] [id number] [place] [address]- 7768 Jul, [facility] [address] [facility] [id number] [place] [address] 5394 16 Jul, 2014 [facility] [address] [facility] [id number] [place] [address]- 8416 16 Jul, 2014 [facility] [place] [facility] [address] [id number] [place] [address]- 4816 16 Jul, 2014 [facility] [place] [facility] [address] [id number] [place] [address]- 9000 16 Jul, 2014 [facility] [place] [facility] [address] [id number] [place] [address]- 9794 16 Jul, 2014 [facility] [place] [facility] [address] [id number] [place] [address]- 2824 13 Jul, 2014 [facility] [place] [facility] [address] [id number] [place] [address]- 2184 13 Jul, 2014 [facility] [place] [facility] [address] [id number] [place] [address]- 1451 09 Jul, 2014 [facility] [place] [facility] [address] [id number] [place] [address]- 8129 09 Jul, 2014 [facility] [place] [facility] [address] [id number] [place] [address]- 1865 17 Jul, 2014 [facility] [place] [facility] [address] [id number] [place] [address]- 5669 17 Jul, 2014 [facility] [place] [facility] [address] [id number] [place] [address]- 8301 16 Jul, 2014 [facility] [place] [facility] [address] [id number] [place] [address]- 9356 16 Jul, 2014 [facility] [place] [facility] [address] [id number] [place] [address]- 0137 16 Jul, 2014 [facility] [place] [facility] [address] [id number] [place] [address]- 4520 16 Jul, 2014 [facility] [place] [facility] [address] [id number] [place] [address]- 3420 16 Jul, 2014 [facility] [place] [facility] [address] [id number] [place] [address]- 8779 16 Jul, 2014 [facility] [place] [facility] [address] [id number] [place] [address]- 3072 16 Jul, 2014 [facility] [place] [facility] [address] [id number] [place] [address]- 9870 Jul, 2014 [facility] [place] [facility] [address] [id number] [place] [address]- 3026 Jul, 2014 [facility] [place] [facility] [address] [id number] [place] [address]- 6946 Jul, 2014 [facility] [place] [facility] [address] [id number] [place] [address]- 3702 Jul, 2014 [facility] [place] [facility] [address] [id number] [place] [address]- 8904 Jul, 2014 [facility] [place] [facility] [address] [id number] [place] [address]- 9446 Jul, 2014 [facility] [place] [facility] [address] [id number] [place] [address]- 2887 Jul, 2014 [facility] [place] [facility] [address] [id number] [place] [address]- 9745 May, [facility] [place] [facility] [address] [id number] [place] [address]- 5465 May, [facility] [place] [facility] [address] [id number] [place] [address]- 8846 May, [facility] [place] [facility] [address] [id number] [place] [address]- 4248 May, [facility] [place] [facility] [address] [id number] [place] [address]- 5808 May, [facility] [place] [facility] [address] [id number] [place] [address]- 7116 May, [facility] [place] [facility] [address] [id number] [place] [address]- 2496 May, [facility] [place] [facility] [address] [id number] [place] [address]- 3231 May, [facility] [place] [facility] [address] [id number] [place] [address]- 7038 May, [facility] [place] [facility] [address] [id number] [place] [address]- 7881 May, [facility] [place] [facility] [address] [id number] [place] [address]- 8281 Apr, [facility] [place] [facility] [address] [id number] [place] [address]- 8331 Apr, [facility] [place] [facility] [address] [id number] [place] [address]- 8308 Apr, [facility] [place] [facility] [address] [id number] [place] [address]- 0035 Apr, [facility] [place] [facility] [address] [id number] [place] [address]- 7951 Apr, [facility] [place] [facility] [address] [id number] [place] [address]- 0854 Apr, [facility] [place] [facility] [address] [id number] [place] [address]- 9882 Mar, [facility] [place] [facility] [address] [id number] [place] [address]- 6787 Mar, [facility] [place] [facility] [address] [id number] [place] [address]- 1140 Mar, [facility] [place] [facility] [address] [id number], [place] [address]- 9052 Mar, [facility] [place] [facility] [address] [id number] [place] [address]- 0639 Mar, [facility] [place] [facility] [address] [id number] [place] [address]- 6419 Mar, [facility] [place] [facility] [address] [id number] [place] [address]- 6829 Mar, [facility] [place] [facility] [address] [id number] [place] [address]- 9652 17 Mar, 2014 [facility] [place] [facility] [address] [id number] [place] [address]- 6409 Mar, [facility] [place] [facility] [address] [id number] [place] [address]- 4122 Mar, [facility] [place] [facility] [address] [id number] [place] [address]- 5883 Mar, [facility] [place] [facility] [address] [id number] [place] [address]- 9049 Feb, [facility] [place] [facility] [address] [id number] [place] [address]- 3439 Feb, [facility] [place] [facility] [address] [id number] [place] [address]- 2813 Feb, [facility] [place] [facility] [address] [id number] [place] [address]- 9262 Feb, [facility] [place] [facility] [address] [id number] [place] [address]- 8121 Feb, [facility] [place] [facility] [address] [id number] [place] [address] Feb, [facility] [place] [facility] [address] [id number] [place] [address] Feb, [facility] [place] [facility] [address] [id number] [place] [address] Feb, [facility] [place] [facility] [address] [id number] [place] [address] Feb, [facility] [place] [facility] [address] [id number] [place] [address] Feb, [facility] [place] [facility] [address] [id number] [place] [address] Jan, [facility] [place] [facility] [address] [id number] [place] [address] Jan, [facility] [place] [facility] [address] [id number] [place] [address] 16 Jan, 2014 [facility] [place] [facility] [address] [id number] [place] [address] 16 Jan, 2014 [facility] [place] [facility] [address] [id number] [place] [address] 12 Jan, 2014 [facility] [place] [facility] [address] [id number] [place] [address] Jan, [facility] [place] [facility] [address] [id number] [place] [address] Jan, [facility] [place] [facility] [address] [id number] [place] [address] Dec, [facility] [place] [facility] [address] [id number] [place] [address] Dec, [facility] [place] [facility] [address] [id number] [place] [address] Dec, [facility] [place] [facility] [address] [id number] [place] [address]- [address] Dec, [facility] [place] [facility] [address] [id number] [place] [address] Dec, [facility] [place] [facility] [address] [id number] [place] [address] Dec, [facility] [place] [facility] [address] [id number] [place] [address] Dec, [facility] [place] [facility] [address] [id number] [place] [address] Dec, [facility] [place] [facility] [address] [id number] [place] [address] Oct, [facility] [place] [facility] [address] [id number] [place] [address] Oct, [facility] [place] [facility] [address] [id number], [place] [address] September, [facility] [place] [facility] [address] [id number] [place] [address]- [address] September, [facility] [place] [facility] [address] [id number] [place] [address]- 1649 September, [facility] [place] [facility] [address] [id number] [place] [address] September, [facility] [place] [facility] [address] [id number] [place] [address] September, [facility] [place] [facility] [address] [id number] [place] [address] 14[address] September, [facility] [place] [facility] [address] [id number] [place] [address] September, [facility] [place] [facility] [address] [facility] [id number] [place] [address] Aug, [facility] [place] [facility] [address] [id number] [place] [address] Aug, [facility] [place] [facility] [address] [id number] [place] [address] Jul, [facility] [place] [facility] [address] [facility] [id number] [place] [address] Jul, [facility] [place] [facility] [address] [id number] [place] [address] Jul, [facility] [place] [facility] [address] [id number], [place] [address] Jul, [facility] [place] [facility] [address] [id number] [place] [address] Jul, [facility] [place] [facility] [address] [id number] [place] [address] Jul, [facility] [place] [facility] [address] [id number] [place] [address] Jul, [facility] [place] [facility] [address] [id number] [place] [address] Jul, [facility] [place] [facility] [address] [id number] [place] [address] May, [facility] [place] [facility] [address] [id number] [place] [address] May, [facility] [place] [facility] [address] [id number] [place] [address] May, [facility] [place] [facility] [address] [id number] [place] [address]- [address]646 May, [facility] [place] [facility] [address] [id number] [place] [address] Apr, [facility] [place] [facility] [address] [id number] [place] [address] Mar, [facility] [place] [facility] [address] [id number] [place] [address] Mar, [facility] [place] [facility] [address] [id number] [place] [address]- [address] Mar, [facility] [place] [facility] [address] [id number] [place] [address]00 Mar, [facility] [place] [facility] [address] [id number] [place] [address]- 49[address] Mar, [facility] [place] [facility] [address] [id number], [place] [address] 18 Mar, 2013 [facility] [place] [facility] [address] [id number] [place] [address] Mar, [facility] [place] [facility] [address] [id number] [place] [address] Mar, [facility] [place] [facility] [address] [id number], [place] [address] Mar, [facility] [place] [facility] [address] [id number], [place] [address] Mar, [facility] [place] [facility] [address] [id number] [place] [address] Mar, [facility] [place] [facility] [address] [id number] [place] [address] Mar, [facility] [place] [facility] [address] [id number] [place] [address] Feb, [facility] [place] [facility] [address] [id number] [place] [address] Feb, [facility] [place] [facility] [address] [id number] [place] [address] Feb, [facility] [place] [facility] [address] [id number] [place] [address] Feb, [facility] [place] [facility] [address] [id number] [place] [address] Feb, [facility] [place] [facility] [address] [id number] [place] [address] Jan, [facility] [place] [facility] [address] [id number] [place] [address] Dec, [facility] [place] [facility] [address] [id number] [place] [address] Dec, [facility] [place] [facility] [address] [id number] [place] [address] Dec, [facility] [place] [facility] [address] [id number] [place] [address] Nov, [facility] [place] [facility] [address] [id number] [place] [address] Nov, [facility] [place] [facility] [address] [id number] [place] [address] Nov, [facility] [place] [facility] [address] [id number] [place] [address] Oct, [facility] [place] [facility] [address] [id number] [place] [address] Oct, [facility] [address] [id number] [place] [address] Oct, [facility] [address] [id number] [place] [address] September, [facility] [address] [id number] [place] [address] September, [facility] [address] [id number] [place] [address] September, [facility] [address] [id number] [place] [address]- [address] September, [facility] [address] [id number] [place] [address] 0414 September, [facility] [address] [id number] [place] [address] Aug, [facility] [address] [id number] [place] [address] 2012 Aug, [facility] [address] [id number] [place] [address] Aug, [facility] [address] [id number] [place] [address] Jul, [facility] [address] [id number] [place] [address] Jul, [facility] [address] [id number] [place] [address] Jul, [facility] [place] [facility] [address] [id number] [place] [address] Jul, [facility] [address] [id number] [place] [address]146 Jul, [facility] [address] [id number] [place] [address]647 Jul, [facility] [place] [facility] [address] [id number] [place] [address]10 Jul, [facility] [place] [facility] [address] [id number] [place] [address] May, [facility] [place] [facility] [address] [id number] [place] [address] May, [facility] [place] [facility] [address] [id number] [place] [address]237 May, [facility] [place] [facility] [address] [id number] [place] [address]106 Apr, [facility] [place] [facility] [address] [id number] [place] [address] Apr, [facility] [place] [facility] [address] [id number] [place] [address] Apr, [facility] [place] [facility] [address] [id number] [place] [address] 379[address] Apr, [facility] [place] [facility] [address] [id number] [place] [address] 1379 Apr, [facility] [place] [facility] [address] [id number] [place] [address] Mar, [facility] [place] [facility] [address] [id number], [place] [address] Mar, [facility] [place] [facility] [address] [id number], [place] [address] Mar, [facility] [place] [facility] [address] [id number] [place] [address] 8784 Mar, [facility] [place] [facility] [address] [id number], [place] [address] Feb, [facility] [place] [facility] [address] [id number] [place] [address] 39[address] Feb, [facility] [place] [facility] [address] [id number] [place] [address]- 1122 Feb, [facility] [place] [facility] [address] [id number] [place] [address] 279[address] Feb, [facility] [place] [facility] [address] [id number] [place] [address] 8365 Feb, [facility] [place] [facility] [address] [id number] [place] [address]- 1281 Jan, [facility] [place] [facility] [address] [id number] [place] [address]- 0269 Dec, [facility] [place] [facility] [address] [id number] [place] [address]- 0440 Dec, [facility] [place] [facility] [address] [id number] [place] [address]- 4453 Dec, [facility] [place] [facility] [address] [id number] [place] [address]355 Nov, [facility] [place] [facility] [address] [id number] [place] [address] 8345 Nov, [facility] [place] [facility] [address] [id number] [place] [address] Nov, [facility] [place] [facility] [address] [facility] [id number] [place] [address]- [address]323 Oct, [facility] [place] [facility] [address] [id number] [place] [address] 4511 Oct, [facility] [place] [facility] [address] [id number] [place] [address]407 Oct, [facility] [place] [facility] [address] [id number] [place] [address]- 5853 Oct, [facility] [place] [facility] [address] [id number] [place] [address]- 2646 September, [facility] [place] [facility] [address] [id number] [place] [address] 6339 September, [facility] [place] [facility] [address] [id number] [place] [address]- 7472 Aug, [facility] [address] [id number] [place] [address]- 9847 Aug, [facility] [address] [id number] [place] [address]- 2396 Aug, [facility] [address] [id number] [place] [address]- 4906 Aug, [facility] [address] [id number] [place] [address]- 1491 Aug, [facility] [address] [id number] [place] [address] 1217 Aug, [facility] [address] [id number] [place] [address]- 4328 Aug, [facility] [address] [id number] [place] [address]- 4317 Jul, [facility] [address] [id number] [place] [address]- 0488 Jul, [facility] [address] [id number] [place] [address] 1906 Jul, [facility] [address] [id number] [place] [address]- 2822 May, [facility] [address] [id number] [place] [address]- 3037 May, [facility] [address] [id number] [place] [address]- 6876 May, [facility] [place] [place] [facility] [address] [id number] [place] [address]- 6416 Apr, [facility] [address] [id number] [place] [address]- 5316 Apr, [facility] [address] [id number], [place] [address] Mar, [facility] [address] [id number], [place] [address] Mar, [facility] [id number] [address] Mar, [facility] [id number], [place] [address] 9587 Mar, [facility] [id number], [place] [address]30 Mar, [facility] [id number] [address] Mar, [facility] [id number], [place] [address]- [address]30 Feb, [facility] [id number], [place] [address] Feb, [facility] [address] [id number], [place] [address] Feb, IMMUNIZATIONS No Known Immunizations SOCIAL HISTORY Never Assessed REASON FOR VISIT Controlled meds x's 5_ _ 10/15 PLAN OF CARE VITAL SIGNS MEDICATIONS Medication Instructions Dosage Frequency Start Date End Date Duration Status Xanax 1 MG Orally TID PRN 1 tablet May, Active Lyrica 225 mg Orally Twice a day 1 capsule 12h 30 Active Soma 350 mg Orally Once a day 1 tablet as needed 24h Active MS Contin 30 MG Orally every 8 hours 1 tablet 8h September, 28 days Active Hydrocodone-Acetaminophen 10-325 MG Orally every 6 hrs 1 tablet as needed 6h September, 28 days Active RESULTS No Results PROCEDURES [...]
--- OUTSIDE RECORDS SUMMARY | 2018-05-16 06:58 | XMS REPORT ---
Author Author FERNY SILVERIO Organization [facility] Address [address] [place] [address] Care Team Providers Care Casting Supervisor Name Role Phone FERNY SILVERIO Unavailable PROBLEMS Type Condition ICD9-CM Code YNA87-HX Code Onset Dates Condition Status SNOMED Code Problem Hypoxia R09.02 Active 585740168 Problem Port catheter in place Z95.828 Active 096267005 Problem Anxiety F41.9 Active 20143173 Problem Type 2 diabetes mellitus with diabetic peripheral angiopathy without gangrene E11.51 Active 934976631 Problem Pressure ulcer of other site, stage 3 L89.893 Active 515116001 Problem Lumbar radiculopathy, chronic M54.16 Active 633587189 Problem PAD (peripheral artery disease) I73.9 Active 325136911 Problem manager intermediate current use of insulin Z79.4 Active 835853011 Problem Recurrent major depressive disorder, in full remission F33.42 Active 226578417 Problem Diabetes E11.9 Active 12298093 Problem Hypertension I10 Active 04135231 Problem Back pain M54.9 Active 516900926 Problem Insulin long-term use Z79.4 Active 659335258 Problem COPD (chronic obstructive pulmonary disease) J44.9 Active 95148605 ALLERGIES No Information ENCOUNTERS Encounter Location Date Diagnosis [facility] [address], [place] [address] Dec, [facility] [id number], [place] [address] Dec, Diabetes E11.9 ; Type 2 diabetes mellitus with diabetic peripheral angiopathy without gangrene E11.51 ; Lumbar radiculopathy, chronic M54.16 ; COPD (chronic obstructive pulmonary disease) J44.9 and Anxiety F41.9 [facility] [id number] [address] Dec, Back pain M54.9 and Anxiety F41.9 [place] [facility] [id number] [place] [address] 34770- 8173 Nov, Back pain M54.9 and Anxiety F41.9 [place] [facility] [id number] [place] [address] 45730- 3814 Oct, [facility] [facility] [id number] [place] [address] 64696- 9730 Oct, Back pain M54.9 and Anxiety F41.9 [facility] [facility] [id number] [place] [address] 07272- 2969 September, Anxiety F41.9 and Back pain M54.9 [place] [facility] [id number] [place] [address] 56915- 6342 September, Diabetes E11.9 ; Hypertension I10 ; COPD (chronic obstructive pulmonary disease) J44.9 and Lumbar radiculopathy, chronic M54.16 [place] [id number] [place] [address] 84652- 2380 September, Anxiety F41.9 [place] [id number] [place] [address] 90247- 3408 Aug, [place] [id number] [place] [address] 00412- 7694 Aug, [place] [id number] [place] [address] 67369- 4759 Aug, Anxiety F41.9 and Back pain M54.9 [place] [id number] [place] [address] 52133- 3410 Aug, Medicare annual wellness visit, initial Z00.00 ; COPD ( chronic obstructive pulmonary disease) J44.9 ; PAD (peripheral artery disease) I73.9 ; Insulin long-term use Z79.4 ; Hypertension I10 ; Anxiety F41.9 ; Recurrent major depressive disorder, in full remission F33.42 ; Pressure ulcer of other site, stage 3 L89.893 ; Type 2 diabetes mellitus with diabetic peripheral angiopathy without gangrene E11.51 and residential current use of insulin Z79.4 [facility] [id number] [place] [address] 28052- 2080 Jul, Back pain M54.9 [facility] [id number] [place] [address] 40098- 6810 Jul, [facility] [id number] [place] [address] 53639- 6601 Jul, Anxiety F41.9 and Back pain M54.9 [facility] [id number] [place] [address] 18799- 1566 Jul, Diabetes E11.9 [facility] [id number] [place] [address] 06056- 0612 May, [facility] [id number] [place] [address] 75243- 7708 May, Diabetes E11.9 ; Anxiety F41.9 ; Back pain M54.9 and COPD ( chronic obstructive pulmonary disease) J44.9 [facility] [id number] [place] [address] 09460- 1547 May, Back pain M54.9 [facility] [id number] [place] [address] 42975- 6489 May, [facility] [id number] [place] [address] 29814- 8503 Apr, Back pain M54.9 [facility] [id number] [place] [address] 24213- 6325 Mar, Back pain M54.9 [facility] [id number] [place] [address] 12030- 9692 Mar, [facility] [id number] [place] [address] 22502- 5048 Mar, [facility] [id number] [place] [address] 47099- 3054 14 Mar, 2017 Radiculopathy of lumbar region M54.16 [facility] [address] 91882- 9612 13 Mar, 2017 [facility] [address] 41788- 6009 07 Mar, 2017 Encounter for immunization Z23 and Lumbar radiculopathy, chronic M54.16 [facility] [address] 83158- 2497 01 Mar, 2017 Back pain M54.9 and Anxiety F41.9 [facility] [address] 27[address] -2356 10 Feb, 2017 Acute bilateral low back pain with left-sided sciatica M54.42 and Acute bilateral low back pain with right-sided sciatica M54.41 [place] [address] 40742- 0017 Feb, [place] [address] 97374- 7708 Feb, Back pain M54.9 [place] [address] 09039- 6274 05 Jan, 2017 Back pain M54.9 and Anxiety F41.9 [place] [id number] [place] [address] 05670- 1673 05 Jan, 2017 Diabetes E11.9 [facility] [id number] [place] [address] 56457- 9641 14 Dec, 2016 Diabetes E11.9 ; Back pain M54.9 ; Anxiety F41.9 and Insulin long-term use Z79.4 [facility] [id number] [place] [address] 55782- 4243 Dec, Anxiety F41.9 [facility] [address] 74489- 0704 08 Dec, 2016 Back pain M54.9 [facility] [id number] [place] [address] 75140- 2259 Nov, Back pain M54.9 [facility] [id number] [place] [address] 57242- 2526 Oct, Back pain M54.9 and Anxiety F41.9 [facility] [id number] [place] [address] 15351- 2684 September, Back pain M54.9 [facility] [id number] [place] [address] 58136- 8930 September, Back pain M54.9 and Anxiety F41.9 [facility] [id number] [place] [address] 37207- 9595 Aug, Diabetes E11.9 ; Anxiety F41.9 ; Back pain M54.9 and PAD ( peripheral artery disease) I73.9 [facility] [id number] [place] [address] 94915- 2277 Aug, Anxiety F41.9 [facility] [id number] [place] [address] 20252- 9114 Aug, Back pain M54.9 [facility] [id number] [place] [address] 86189- 4137 23 Jul, 2016 Back pain M54.9 [facility] [id number] [place] [address] 83300- 9664 13 Jul, 2016 Back pain M54.9 [facility] [id number] [place] [address] 66697- 3797 23 Jul, 2016 Back pain M54.9 [facility] [id number] [place] [address] 08951- 3596 16 Jul, 2016 Dorsalgia M54.9 [facility] [id number] [place] [address] 62191- 4668 14 Jul, 2016 [facility] [address] [place] [address]- 0423 May, Back pain M54.9 [facility] [address] 14096- 1195 May, Diabetes E11.9 ; Anxiety F41.9 ; Port catheter in place Z95.828 ; Encounter for immunization Z23 and Insulin long-term use Z79.4 [facility] [address] 38232- 8855 Apr, Back pain M54.9 [facility] [address] 96087- 1759 Apr, Back pain M54.9 [facility] [address] 42143- 6764 Apr, [facility] [address] 11590- 3683 Apr, Back pain M54.9 [facility] [id number] [place] [address] 08008- 8746 Mar, COPD (chronic obstructive pulmonary disease) J44.9 [facility] [id number] [place] [address] 50574- 1498 Feb, [facility] [id number] [place] [address] 42798- 3357 30 Jan, 2016 [facility] [id number] [place] [address] 51548- 4481 Jan, [facility] [id number] [place] [address] 90312- 3558 Jan, [facility] [address] 87522- 5163 Jan, [facility] [id number] [place] [address] 59686- 7646 Dec, Diabetes E11.9 ; Hypoxia R09.02 and Back pain M54.9 [facility] [address], [place] [address]- 8729 Dec, [facility] [id number] [place] [address] 55596- 2462 Nov, [facility] [id number] [place] [address] 50260- 2337 Oct, Anxiety F41.9 [facility] [id number] [place] [address] 31475- 5048 Oct, Back pain M54.9 [facility] [id number] [place] [address] 04317- 4260 September, Back pain M54.9 [facility] [id number] [place] [address] 49035- 0606 September, Diabetes E11.9 [facility] [id number] [place] [address] 58683- 9694 September, [facility] [id number] [place] [address] 48148- 5696 September, Diabetes E11.9 ; Insulin long-term use Z79.4 and Back pain M54.9 [facility] [id number] [place] [address] 05406- 0623 Aug, Back pain M54.9 [facility] [id number] [place] [address] 95546- 4368 Aug, Back pain M54.9 ; Anxiety F41.9 and Arthropathy, unspecified M12.9 [facility] [address], [place] [address]- 2833 Jul, Back pain M54.9 [facility] [id number] [place] [address] 84737- 6056 Jul, Anxiety F41.9 [facility] [address], [place] [address]- 8313 Jul, Back pain M54.9 [facility] [address], [place] [address]- 5422 17 Jul, 2015 [facility] [id number] [place] [address] 39106- 1764 Jul, [facility] [address], [place] [address]- 0657 May, Back pain M54.9 ; Diabetes E11.9 ; Insulin long-term use Z79.4 ; COPD (chronic obstructive pulmonary disease) J44.9 and Hypertension I10 [facility] [id number] [place] [address] 06781- 4153 May, Chronic pain G89.29 [facility] [id number] [place] [address] 83376- 4008 Apr, [facility] [id number] [place] [address] 95869- 0630 Apr, [facility] [id number] [place] [address] 64436- 2357 Mar, [facility] [id number] [place] [address] 98775- 7667 Mar, Encounter for immunization Z23 and Diabetes E11.9 [facility] [address], [place] [address]- 0860 Feb, [facility] [id number] [place] [address] 46644- 0239 Feb, [facility] [address], [place] [address]- 4778 23 Jan, 2015 [facility] [id number] [place] [address] 87199- 6165 16 Jan, 2015 [facility] [address], [place] [address]- 5685 Dec, [facility] [id number] [place] [address] 79509- 0472 Dec, [facility] [address] [id number] [place] [address]- 1620 Dec, Unspecified arthropathy, site unspecified 716.90 and Diabetes mellitus type 2, uncontrolled 250.02 [facility] [address] [id number] [place] [address]- 9106 Dec, [facility] [address] [id number] [place] [address]- 8597 Nov, [facility] [address] [id number] [place] [address]- 4009 Oct, [facility] [address] [id number] [place] [address]- 2125 September, [facility] [address] [id number] [place] [address]- 7691 September, [facility] [address] [facility] [id number] [place] [address]- 2814 September, [facility] [address] [id number] [place] [address]- 2381 September, [facility] [address] [id number] [place] [address]- 2792 Aug, [facility] [address] [facility] [id number] [place] [address]- 9007 Aug, [facility] [address] [id number] [place] [address]- 0022 Jul, [facility] [address] [id number] [place] [address]- 8807 18 Jul, 2014 [facility] [address] [id number] [place] [address]- 8367 16 Jul, 2014 [facility] [address] [id number] [place] [address]- 5536 16 Jul, 2014 [facility] [address] [id number] [place] [address]- 1093 16 Jul, 2014 [facility] [place] [facility] [address] [id number] [place] [address]- 4825 16 Jul, 2014 [facility] [place] [facility] [address] [id number] [place] [address]- 7898 16 Jul, 2014 [facility] [place] [facility] [address] [id number] [place] [address]- 7459 16 Jul, 2014 [facility] [place] [facility] [address] [id number] [place] [address]- 3605 16 Jul, 2014 [facility] [place] [facility] [address] [id number] [place] [address]- 0163 13 Jul, 2014 [facility] [place] [facility] [address] [id number] [place] [address]- 2882 13 Jul, 2014 [facility] [place] [facility] [address] [id number] [place] [address]- 8830 09 Jul, 2014 [facility] [place] [facility] [address] [id number] [place] [address]- 7590 09 Jul, 2014 [facility] [place] [facility] [address] [id number] [place] [address]- 9444 17 Jul, 2014 [facility] [place] [facility] [address] [id number] [place] [address]- 5861 17 Jul, 2014 [facility] [place] [facility] [address] [id number] [place] [address]- 9364 16 Jul, 2014 [facility] [place] [facility] [address] [id number], [place] [address]- 3727 16 Jul, 2014 [facility] [place] [facility] [address] [id number] [place] [address]- 8787 16 Jul, 2014 [facility] [place] [facility] [address] [id number] [place] [address]- 3964 16 Jul, 2014 [facility] [place] [facility] [address] [id number] [place] [address]- 1698 16 Jul, 2014 [facility] [place] [facility] [address] [id number] [place] [address]- 6721 16 Jul, 2014 [facility] [place] [facility] [address] [id number] [place] [address]- 3690 Jul, 2014 [facility] [place] [facility] [address] [id number] [place] [address]- 3776 16 Jul, 2014 [facility] [place] [facility] [address] [id number] [place] [address]- 8348 Jul, 2014 [facility] [place] [facility] [address] [id number] [place] [address]- 1690 Jul, 2014 [facility] [place] [facility] [address] [id number] [place] [address]- 6791 Jul, 2014 [facility] [place] [facility] [address] [id number] [place] [address]- 5380 Jul, 2014 [facility] [place] [facility] [address] [id number] [place] [address]- 2848 Jul, 2014 [facility] [place] [facility] [address] [id number] [place] [address]- 0400 Jul, [facility] [place] [facility] [address] [id number] [place] [address]- 4047 May, [facility] [place] [facility] [address] [id number] [place] [address]- 8671 May, [facility] [place] [facility] [address] [id number] [place] [address]- 2372 May, [facility] [place] [facility] [address] [id number] [place] [address]- 3879 May, [facility] [place] [facility] [address] [id number] [place] [address]- 6528 May, [facility] [place] [facility] [address] [id number] [place] [address]- 6116 May, [facility] [place] [facility] [address] [id number] [place] [address]- 7332 May, [facility] [place] [facility] [address] [id number] [place] [address]- 4778 May, [facility] [place] [facility] [address] [id number] [place] [address]- 5161 May, [facility] [place] [facility] [address] [id number] [place] 1212 May, [facility] [place] [facility] [address] [id number] [place] [address]- 2015 Apr, [facility] [place] [facility] [address] [id number] [place] [address]- 6777 Apr, [facility] [place] [facility] [address] [id number] [place] [address]- 0228 Apr, [facility] [place] [facility] [address] [id number] [place] [address]- 3462 Apr, [facility] [place] [facility] [address] [id number] [place] [address]- 7730 Apr, [facility] [place] [facility] [address] [id number] [place] [address]- 2633 Apr, [facility] [place] [facility] [address] [id number] [place] [address]- 5228 Mar, [facility] [place] [facility] [address] [id number] [place] [address]- 5677 Mar, [facility] [place] [facility] [address] [id number], [place] [address]- 5791 Mar, [facility] [place] [facility] [address] [id number] [place] [address]- 3265 Mar, [facility] [place] [facility] [address] [id number] [place] [address]- 3353 Mar, [facility] [place] [facility] [address] [id number] [place] [address]- 6930 Mar, [facility] [place] [facility] [address] [id number] [place] [address]- 4198 Mar, [facility] [place] [facility] [address] [id number] [place] [address]- 2538 Mar, [facility] [place] [facility] [address] [id number] [place] [address]- 1102 Mar, [facility] [place] [facility] [address] [id number] [place] 1751 Mar, [facility] [place] [facility] [address] [id number] [place] [address]- 7469 Mar, [facility] [place] [facility] [address] [id number] [place] [address]- 6556 Feb, [facility] [place] [facility] [address] [id number] [place] [address]- 4651 Feb, [facility] [place] [facility] [address] [id number] [place] [address]- 1912 Feb, [facility] [place] [facility] [address] [id number] [place] [address] Feb, [facility] [place] [facility] [address] [id number] [place] [address] Feb, [facility] [place] [facility] [address] [id number] [place] [address] 8560 Feb, [facility] [place] [facility] [address] [id number] [place] [address] Feb, [facility] [place] [facility] [address] [id number] [place] [address] Feb, [facility] [place] [facility] [address] [id number] [place] [address] Feb, [facility] [place] [facility] [address] [id number] [place] [address] Feb, [facility] [place] [facility] [address] [id number] [place] [address] Jan, [facility] [place] [facility] [address] [id number] [place] [address] 22 Jan, 2013 [facility] [place] [facility] [address] [id number] [place] [address] 16 Jan, 2014 [facility] [place] [facility] [address] [id number] [place] [address] 16 Jan, 2013 [facility] [place] [facility] [address] [id number] [place] [address]- [address] 12 Jan, 2014 [facility] [place] [facility] [address] [id number] [place] [address] Jan, [facility] [place] [facility] [address] [id number] [place] [address] Jan, [facility] [place] [facility] [address] [id number] [place] [address] Dec, [facility] [place] [facility] [address] [id number] [place] [address] Dec, [facility] [place] [facility] [address] [id number] [place] [address] Dec, [facility] [place] [facility] [address] [id number] [place] [address] Dec, [facility] [place] [facility] [address] [id number] [place] [address] Dec, [facility] [place] [facility] [address] [id number] [place] [address] Dec, [facility] [place] [facility] [address] [id number] [place] [address] Dec, [facility] [place] [facility] [address] [id number] [place] [address]139 Dec, [facility] [place] [facility] [address] [id number] [place] [address] Oct, [facility] [place] [facility] [address] [id number], [place] [address] Oct, [facility] [place] [facility] [address] [id number] [place] [address] September, [facility] [place] [facility] [address] [id number] [place] [address] September, [facility] [place] [facility] [address] [id number] [place] [address] September, [facility] [place] [facility] [address] [id number] [place] [address] September, [facility] [place] [facility] [address] [id number] [place] [address]- [address] September, [facility] [place] [facility] [address] [id number] [place] [address]- [address] September, [facility] [place] [facility] [address] [id number] [place] [address] September, [facility] [place] [facility] [address] [id number] [place] [address] 3769 Aug, [facility] [place] [facility] [address] [id number] [place] [address] Aug, [facility] [place] [facility] [address] [id number] [place] [address] Jul, [facility] [place] [facility] [address] [id number] [place] [address] Jul, [facility] [place] [facility] [address] [id number] [place] [address] Jul, [facility] [place] [facility] [address] [id number] [place] [address] Jul, [facility] [place] [facility] [address] [id number] [place] [address] Jul, [facility] [place] [facility] [address] [id number] [place] [address] Jul, [facility] [place] [facility] [address] [id number] [place] [address] Jul, [facility] [place] [facility] [address] [id number] [place] [address] Jul, [facility] [place] [facility] [address] [id number] [place] [address] May, [facility] [place] [facility] [address] [id number] [place] [address] May, [facility] [place] [facility] [address] [id number] [place] [address] 1417 May, [facility] [place] [facility] [address] [id number] [place] [address] May, [facility] [place] [facility] [address] [id number] [place] [address] 65[address] Apr, [facility] [place] [facility] [address] [id number] [place] [address] Mar, [facility] [place] [facility] [address] [id number] [place] [address] 8918 Mar, [facility] [place] [facility] [address] [id number] [place] [address] Mar, [facility] [place] [facility] [address] [id number] [place] [address] 9748 Mar, [facility] [place] [facility] [address] [id number], [place] [address] Mar, [facility] [place] [facility] [address] [id number] [place] [address] 9118 Mar, [facility] [place] [facility] [address] [id number] [place] [address] 2488 Mar, [facility] [place] [facility] [address] [id number], [place] [address] 77[address] Mar, [facility] [place] [facility] [address] [id number], [place] [address] Mar, [facility] [place] [facility] [address] [id number] [place] [address] 3866 Mar, [facility] [place] [facility] [address] [id number] [place] [address] 9812 Mar, [facility] [place] [facility] [address] [id number] [place] [address] 5950 Mar, [facility] [place] [facility] [address] [id number] [place] [address] 4670 Feb, [facility] [place] [facility] [address] [id number] [place] [address] Feb, [facility] [place] [facility] [address] [id number] [place] [address] Feb, [facility] [place] [facility] [address] [id number] [place] [address] 2260 Feb, [facility] [place] [facility] [address] [id number] [place] [address] 8601 Feb, [facility] [place] [facility] [address] [id number] [place] [address] 8280 Jan, [facility] [place] [facility] [address] [id number] [place] [address] 2193 Dec, [facility] [place] [facility] [address] [id number] [place] [address]203 Dec, [facility] [place] [facility] [address] [id number] [place] [address] 3799 Dec, [facility] [place] [facility] [address] [id number] [place] [address] 8894 Nov, [facility] [place] [facility] [address] [id number] [place] [address]- 7167 Nov, [facility] [place] [facility] [address] [id number] [place] [address] 2048 Nov, [facility] [place] [facility] [address] [id number] [place] [address] 40[address] Oct, [facility] [address] [id number] [place] [address] 2848 Oct, [facility] [address] [id number] [place] [address]36 Oct, [facility] [address] [id number] [place] [address] 3636 September, [facility] [address] [id number] [place] [address] 7[address] September, [facility] [address] [id number] [place] [address] 5[address] September, [facility] [address] [id number] [place] [address] 2731 September, [facility] [address] [id number] [place] [address] 5928 September, [facility] [address] [id number] [place] [address] 8169 Aug, [facility] [address] [id number] [place] [address] 8023 Aug, [facility] [address] [id number] [place] [address] 3458 Aug, [facility] [address] [id number] [place] [address] 9480 Jul, [facility] [address] [id number] [place] [address] Jul, [facility] [place] [facility] [address] [id number] [place] [address] Jul, [facility] [address] [id number] [place] [address] Jul, [facility] [address] [id number] [place] [address]- 7439 Jul, [facility] [address] [id number] [place] [address]- 5298 Jul, [facility] [place] [facility] [address] [id number] [place] [address] 7346 Jul, [facility] [place] [facility] [address] [id number] [place] [address]- 4526 May, [facility] [place] [facility] [address] [id number] [place] [address] 3531 May, [facility] [place] [facility] [address] [id number] [place] [address] 5629 May, [facility] [place] [facility] [address] [id number] [place] [address] Apr, [facility] [place] [facility] [address] [id number] [place] [address]- 0662 Apr, [facility] [place] [facility] [address] [id number] [place] [address]- 1030 Apr, [facility] [place] [facility] [address] [id number] [place] [address] Apr, [facility] [place] [facility] [address] [id number] [place] [address] Apr, [facility] [place] [facility] [address] [id number], [place] [address]64 Mar, [facility] [place] [facility] [address] [id number], [place] [address] 29 Mar, 2012 [facility] [place] [facility] [address] [id number] [place] [address]- 7902 Mar, [facility] [place] [facility] [address] [id number], [place] [address]66 15 Mar, 2012 [facility] [place] [facility] [address] [id number] [place] [address] Feb, [facility] [place] [facility] [address] [id number] [place] [address] 6813 Feb, [facility] [place] [facility] [address] [id number] [place] [address]- 8023 Feb, [facility] [place] [facility] [address] [id number] [place] [address] 8426 Feb, [facility] [place] [facility] [address] [id number] [place] [address] 7237 Feb, [facility] [place] [facility] [address] [id number] [place] [address]- 0068 Jan, [facility] [place] [facility] [address] [id number] [place] [address]- 0766 Dec, [facility] [place] [facility] [address] [id number] [place] [address]- 6370 Dec, [facility] [place] [facility] [address] [id number] [place] [address]- 3406 Dec, [facility] [place] [facility] [address] [id number] [place] [address]- 3260 Nov, [facility] [place] [facility] [address] [id number] [place] [address]- 5418 Nov, [facility] [place] [facility] [address] [facility] [id number] [place] [address]- 1486 Nov, [facility] [place] [facility] [address] [id number] [place] [address]- 4269 Oct, [facility] [place] [facility] [address] [id number] [place] [address]- 8292 Oct, [facility] [place] [facility] [address] [id number] [place] [address]- 2447 Oct, [facility] [place] [facility] [address] [id number] [place] [address]- 5346 Oct, [facility] [place] [facility] [address] [id number] [place] [address]- 6729 September, [facility] [place] [facility] [address] [id number] [place] [address]- 3365 September, [facility] [address] [id number] [place] [address]- 2713 Aug, [facility] [address] [id number] [place] [address]- 3396 Aug, [facility] [address] [id number] [place] [address]- 0508 Aug, [facility] [address] [id number] [place] [address]- 5678 Aug, [facility] [address] [id number] [place] [address]- 7750 Aug, [facility] [address] [id number] [place] [address]- 7444 Aug, [facility] [address] [id number] [place] [address]- 5819 Aug, [facility] [address] [id number] [place] [address]- 9706 Jul, [facility] [address] [id number] [place] [address]- 5787 Jul, [facility] [address] [id number] [place] [address]- 4821 Jul, [facility] [address] [id number] [place] [address]- 7745 May, [facility] [address] [id number] [place] [address]- 2279 May, [facility] [place] [facility] [address] [id number] [place] [address]- 7336 May, [facility] [address] [id number] [place] [address]- 4668 Apr, [facility] [address] [id number] [address] Apr, [facility] [id number], [place] [address] 2101 Mar, [facility] [id number], [place] [address]- 4241 Mar, [facility] [id number], [place] [address]- 7235 Mar, [facility] [id number], [place] [address]- 0030 Mar, [facility] [id number], [place] [address]- 4730 Mar, [facility] [id number], [place] [address]- 4594 Mar, [facility] [id number], [place] [address]- 4455 Feb, [facility] [id number], [place] [address]- 6221 Feb, [facility] [address] [id number], [place] [address]- 6[address] Feb, IMMUNIZATIONS No Known Immunizations SOCIAL HISTORY Never Assessed REASON FOR VISIT Controlled med X''s 3 due 11/12 PLAN OF CARE VITAL SIGNS MEDICATIONS Medication Instructions Dosage Frequency Start Date End Date Duration Status MS Contin 30 MG Orally every 8 hours 1 tablet 8h Oct, 28 days Active Soma 350 mg Orally Once a day 1 tablet as needed 24h Active Xanax 1 MG Orally TID PRN 1 tablet May, Active Hydrocodone-Acetaminophen 10-325 MG Orally every 6 hrs 1 tablet as needed 6h Oct, 28 days Active RESULTS No Results PROCEDURES [...]
--- OUTSIDE RECORDS SUMMARY | 2018-05-16 06:59 | XMS REPORT ---
Author Author FERNY SILVERIO Organization [facility] Address [address] [place] [address] Care Team Providers Care Merchandise Complaint Adjuster Name Role Phone FERNY SILVERIO Unavailable PROBLEMS Type Condition ICD9-CM Code VHH66-FV Code Onset Dates Condition Status SNOMED Code Problem Hypoxia R09.02 Active 748781034 Problem Port catheter in place Z95.828 Active 504908007 Problem Anxiety F41.9 Active 68603645 Problem Type 2 diabetes mellitus with diabetic peripheral angiopathy without gangrene E11.51 Active 365988890 Problem Pressure ulcer of other site, stage 3 L89.893 Active 650967029 Problem Lumbar radiculopathy, chronic M54.16 Active 765575933 Problem PAD (peripheral artery disease) I73.9 Active 275673947 Problem 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 475535176 Problem Recurrent major depressive disorder, in full remission F33.42 Active 284981981 Problem Diabetes E11.9 Active 70191538 Problem Hypertension I10 Active 29808932 Problem Back pain M54.9 Active 217732933 Problem Insulin long-term use Z79.4 Active 703895603 Problem COPD (chronic obstructive pulmonary disease) J44.9 Active 81991825 ALLERGIES No Known Allergies ENCOUNTERS Encounter Location Date Diagnosis [facility] [address] [address] Nov, Back pain M54.9 and Anxiety F41.9 [facility] [id number] [place] [address] 91642- 3724 18 Oct, 2017 [facility] [id number] [place] [address] 49625- 0598 2017 Back pain M54.9 and Anxiety F41.9 [facility] [id number] [place] [address] 83283- 3657 September, Anxiety F41.9 and Back pain M54.9 [facility] [id number] [place] [address] 08692- 8830 September, Diabetes E11.9 ; Hypertension I10 ; COPD (chronic obstructive pulmonary disease) J44.9 and Lumbar radiculopathy, chronic M54.16 [facility] [id number] [place] [address] 34637- 6510 September, Anxiety F41.9 [facility] [id number] [place] [address] 01828- 7156 Aug, [facility] [address] 9[address]65- 0955 Aug, [facility] [id number] [place] [address] 90465- 4659 Aug, Anxiety F41.9 and Back pain M54.9 [facility] [id number] [place] [address] 52472- 1204 Aug, Medicare annual wellness visit, initial Z00.00 ; COPD ( chronic obstructive pulmonary disease) J44.9 ; PAD (peripheral artery disease) I73.9 ; Insulin long-term use Z79.4 ; Hypertension I10 ; Anxiety F41.9 ; Recurrent major depressive disorder, in full remission F33.42 ; Pressure ulcer of other site, stage 3 L89.893 ; Type 2 diabetes mellitus with diabetic peripheral angiopathy without gangrene E11.51 and longterm current use of insulin Z79.4 [facility] [id number] [place] [address] 70914- 4385 Jul, Back pain M54.9 [facility] [id number] [place] [address] 28907- 0859 Jul, [facility] [id number] [place] [address] 31865- 1788 Jul, Anxiety F41.9 and Back pain M54.9 [facility] [id number] [place] [address] 47512- 1550 Jul, Diabetes E11.9 [facility] [id number] [place] [address] 98634- 7553 May, [facility] [id number] [place] [address] 29769- 0226 May, Diabetes E11.9 ; Anxiety F41.9 ; Back pain M54.9 and COPD ( chronic obstructive pulmonary disease) J44.9 [facility] [id number] [place] [address] 57701- 0672 May, Back pain M54.9 [facility] [address] 84777- 5795 May, [facility] [id number] [place] [address] 36303- 6455 Apr, Back pain M54.9 [facility] [id number] [place] [address] 68640- 3030 Mar, Back pain M54.9 [facility] [id number] [place] [address] 58944- 9045 Mar, [facility] [id number] [place] [address] 83691- 5670 16 Mar, 2017 [facility] [id number] [place] [address] 02581- 7368 14 Mar, 2017 Radiculopathy of lumbar region M54.16 [facility] [id number] [place] [address] 77784- 0688 13 Mar, 2017 [facility] [id number] [place] [address] 85729- 0236 07 Mar, 2017 Encounter for immunization Z23 and Lumbar radiculopathy, chronic M54.16 [facility] [id number] [place] [address] 24001- 7603 01 Mar, 2017 Back pain M54.9 and Anxiety F41.9 [facility] [address] [address] 10 Feb, 2017 Acute bilateral low back pain with left-sided sciatica M54.42 and Acute bilateral low back pain with right-sided sciatica M54.41 [facility] [id number] [place] [address] 43230- 3106 Feb, [facility] [id number] [place] [address] 35866- 1315 Feb, Back pain M54.9 [facility] [id number] [place] [address] 72703- 7515 05 Jan, 2017 Back pain M54.9 and Anxiety F41.9 [facility] [id number] [place] [address] 30286- 0295 05 Jan, 2017 Diabetes E11.9 [facility] [id number] [place] [address] 11872- 4989 Dec, Diabetes E11.9 ; Back pain M54.9 ; Anxiety F41.9 and Insulin long-term use Z79.4 [facility] [id number] [place] [address] 67057- 5697 Dec, Anxiety F41.9 [facility] [id number] [place] [address] 69395- 4091 Dec, Back pain M54.9 [facility] [id number] [place] [address] 49682- 8275 Nov, Back pain M54.9 [facility] [id number] [place] [address] 77536- 7083 Oct, Back pain M54.9 and Anxiety F41.9 [facility] [id number] [place] [address] 16212- 7834 September, Back pain M54.9 [facility] [id number] [place] [address] 59223- 9216 September, Back pain M54.9 and Anxiety F41.9 [facility] [id number] [place] [address] 54542- 0986 Aug, Diabetes E11.9 ; Anxiety F41.9 ; Back pain M54.9 and PAD ( peripheral artery disease) I73.9 [facility] [id number] [place] [address] 32740- 6866 19 Aug, 2016 Anxiety F41.9 [facility] [address] 74983- 9667 Aug, Back pain M54.9 [facility] [address] 80133- 3907 Jul, Back pain M54.9 [facility] [id number] [place] [address] 00909- 8560 Jul, Back pain M54.9 [facility] [address] 02279- 1371 Jul, Back pain M54.9 [facility] [id number] [place] [address] 15411- 6219 16 Jul, 2016 Dorsalgia M54.9 [facility] [id number] [place] [address] 57233- 6510 14 Jul, 2016 [facility] [id number] [place] [address] 78969- 4869 May, Back pain M54.9 [facility] [id number] [place] [address] 04327- 9063 May, Diabetes E11.9 ; Anxiety F41.9 ; Port catheter in place Z95.828 ; Encounter for immunization Z23 and Insulin long-term use Z79.4 [facility] [id number] [place] [address] 75608- 3978 Apr, Back pain M54.9 [facility] [id number] [place] [address] 58851- 6594 Apr, Back pain M54.9 [facility] [id number] [place] [address] 53076- 0493 Apr, [facility] [id number] [place] [address] 93123- 2016 Apr, Back pain M54.9 [facility] [id number] [place] [address] 91086- 1345 Mar, COPD (chronic obstructive pulmonary disease) J44.9 [facility] [id number] [place] [address] 55721- 6634 Feb, [facility] [id number] [place] [address] 18519- 1034 30 Jan, 2016 [facility] [id number] [place] [address] 03576- 4586 Jan, [facility] [id number] [place] [address] 23698- 1166 Jan, [facility] [id number] [place] [address] 74411- 1728 Jan, [facility] [id number] [place] [address] 16232- 7160 Dec, Diabetes E11.9 ; Hypoxia R09.02 and Back pain M54.9 [facility] [id number] [place] [address] 66339- 1942 Dec, [facility] [id number] [place] [address] 41456- 6331 Nov, [facility] [id number] [place] [address] 19973- 8876 Oct, Anxiety F41.9 [facility] [id number] [place] [address] 08775- 8724 Oct, Back pain M54.9 [facility] [id number] [place] [address] 32263- 2631 September, Back pain M54.9 [facility] [id number] [place] [address] 95954- 6459 September, Diabetes E11.9 [facility] [id number] [place] [address] 34665- 6004 September, [facility] [id number] [place] [address] 90519- 7014 September, Diabetes E11.9 ; Insulin long-term use Z79.4 and Back pain M54.9 [facility] [id number] [place] [address] 07236- 5268 Aug, Back pain M54.9 [facility] [id number] [place] [address] 15890- 6284 Aug, Back pain M54.9 ; Anxiety F41.9 and Arthropathy, unspecified M12.9 [facility] [id number] [place] [address] 17138- 1148 Jul, Back pain M54.9 [facility] [id number] [place] [address] 02332- 9392 Jul, Anxiety F41.9 [facility] [id number] [place] [address] 92431- 1361 Jul, Back pain M54.9 [facility] [id number] [place] [address] 56052- 9448 Jul, [facility] [id number] [place] [address] 82407- 9550 Jul, [facility] [id number] [place] [address] 71239- 9296 May, Back pain M54.9 ; Diabetes E11.9 ; Insulin long-term use Z79.4 ; COPD (chronic obstructive pulmonary disease) J44.9 and Hypertension I10 [facility] [id number] [place] [address] 32947- 4441 May, Chronic pain G89.29 [facility] [address] [address]- 5326 Apr, [facility] [id number] [place] [address] 58073- 3484 Apr, [facility] [id number] [place] [address] 93975- 5897 Mar, [facility] [id number] [place] [address] 03389- 1198 Mar, Encounter for immunization Z23 and Diabetes E11.9 [facility] [id number] [place] [address] 89627- 8618 Feb, [facility] [id number] [place] [address] 56723- 3050 Feb, [facility] [id number] [place] [address] 05532- 4272 Jan, [facility] [address] [place] [address] 74670- 5218 Jan, [facility] [address] [place] [address] 70431- 8016 Dec, [facility] [address] [address]- 6724 Dec, [facility] [address] [place] [address] 47596- 0244 Dec, Unspecified arthropathy, site unspecified 716.90 and Diabetes mellitus type 2, uncontrolled 250.02 [facility] [address] [address]- 5641 Dec, [facility] [id number] [place] [address] 50275- 1449 Nov, [facility] [address] [address]- 9660 Oct, [facility] [id number] [place] [address]- 5758 September, [facility] [address] [id number] [place] [address]- 7235 September, [facility] [place] [facility] [address] [id number] [place] 9756 18 Sep, 2014 [facility] [address] [id number] [place] [address]- 3027 September, [facility] [place] [facility] [address] [id number] [place] [address]- 6504 14 Aug, 2014 [facility] [place] [facility] [address] [id number] [place] [address]- 2880 13 Aug, 2014 [facility] [place] [facility] [address] [id number] [place] [address]- 7112 18 Jul, 2014 [facility] [place] [facility] [address] [id number] [place] [address]- 4468 18 Jul, 2014 [facility] [address] [id number] [place] [address]- 4283 16 Jul, 2014 [facility] [place] [facility] [address] [id number] [place] [address]- 8442 16 Jul, 2014 [facility] [place] [facility] [address] [id number] [place] [address]- 2188 16 Jul, 2014 [facility] [place] [facility] [address] [id number] [place] [address]- 8454 16 Jul, 2014 [facility] [place] [facility] [address] [id number] [place] [address]- 0706 16 Jul, 2014 [facility] [place] [facility] [address] [id number] [place] [address]- 5365 16 Jul, 2014 [facility] [place] [facility] [address] [id number] [place] [address]- 4685 16 Jul, 2014 [facility] [place] [facility] [address] [id number] [place] [address]- 5931 13 Jul, 2014 [facility] [place] [facility] [address] [id number] [place] [address]- 7764 13 Jul, 2014 [facility] [place] [facility] [address] [id number] [place] [address]- 7431 09 Jul, 2014 [facility] [place] [facility] [address] [id number] [place] [address]- 6582 09 Jul, 2014 [facility] [place] [facility] [address] [id number] [place] [address]- 2092 17 Jul, 2014 [facility] [place] [facility] [address] [id number] [place] [address]- 9423 17 Jul, 2014 [facility] [place] [facility] [address] [id number] [place] [address]- 3692 16 Jul, 2014 [facility] [place] [facility] [address] [id number] [place] [address]- 1483 16 Jul, 2014 [facility] [place] [facility] [address] [id number] [place] [address]- 4992 16 Jul, 2014 [facility] [place] [facility] [address] [id number] [place] [address]- 9852 16 Jul, 2014 [facility] [place] [facility] [address] [id number] [place] [address]- 8257 16 Jul, 2014 [facility] [place] [facility] [address] [id number] [place] [address]- 9779 16 Jul, 2014 [facility] [place] [facility] [address] [id number] [place] [address]- 0285 16 Jul, 2014 [facility] [place] [facility] [address] [id number] [place] [address]- 7027 16 Jul, 2014 [facility] [place] [facility] [address] [id number] [place] [address]- 2533 16 Jul, 2014 [facility] [place] [facility] [address] [id number] [place] [address]- 5295 16 Jul, 2014 [facility] [place] [facility] [address] [id number] [place] [address]- 6981 16 Jul, 2014 [facility] [place] [facility] [address] [id number] [place] [address]- 6169 Jul, 2014 [facility] [place] [facility] [address] [id number] [place] [address]- 1557 Jul, 2014 [facility] [place] [facility] [address] [id number] [place] [address]- 2485 Jul, [facility] [place] [facility] [address] [id number] [place] [address]- 3770 May, [facility] [place] [facility] [address] [id number] [place] [address]- 4619 May, [facility] [place] [facility] [address] [id number] [place] [address]- 0780 May, [facility] [place] [facility] [address] [id number] [place] [address]- 1179 May, [facility] [place] [facility] [address] [id number] [place] [address]- 6446 May, [facility] [place] [facility] [address] [id number] [place] [address]- 8206 May, [facility] [place] [facility] [address] [id number] [place] [address]- 9056 May, [facility] [place] [facility] [address] [id number] [place] [address]- 4853 May, [facility] [place] [facility] [address] [id number] [place] [address]- 4208 May, [facility] [place] [facility] [address] [id number] [place] [address]- 2383 May, [facility] [place] [facility] [address] [id number] [place] [address]- 1467 Apr, [facility] [place] [facility] [address] [id number] [place] [address]- 7493 Apr, [facility] [place] [facility] [address] [id number] [place] [address]- 9231 Apr, [facility] [place] [facility] [address] [id number] [place] [address]- 2524 Apr, [facility] [place] [facility] [address] [id number] [place] [address]- 7803 Apr, [facility] [place] [facility] [address] [id number] [place] [address]- 0527 Apr, [facility] [place] [facility] [address] [id number] [place] [address]- 4262 Mar, [facility] [place] [facility] [address] [id number] [place] [address]- 5260 Mar, [facility] [place] [facility] [address] [id number] [place] [address]- 6849 Mar, [facility] [place] [facility] [address] [id number] [place] [address]- 1285 Mar, [facility] [place] [facility] [address] [id number] [place] [address]- 8443 Mar, [facility] [place] [facility] [address] [id number] [place] [address]- 8645 Mar, [facility] [place] [facility] [address] [id number], [place] [address]- 2987 Mar, [facility] [place] [facility] [address] [id number], [place] [address]- 8123 Mar, [facility] [place] [facility] [address] [id number] [place] [address]- 5014 Mar, [facility] [place] [facility] [address] [id number], [place] [address]- 9091 Mar, [facility] [place] [facility] [address] [id number] [place] [address]- 9168 Mar, [facility] [place] [facility] [address] [id number] [place] [address]- 9431 30 Feb, 2014 [facility] [place] [facility] [address] [id number] [place] [address]- 5689 30 Feb, 2014 [facility] [place] [facility] [address] [id number] [place] [address]- 0876 Feb, [facility] [place] [facility] [address] [id number] [place] [address]- 1498 Feb, [facility] [place] [facility] [address] [id number] [place] [address]- 7482 Feb, [facility] [place] [facility] [address] [id number] [place] [address]- 0575 Feb, [facility] [place] [facility] [address] [id number] [place] [address]- 4139 Feb, [facility] [place] [facility] [address] [id number] [place] [address]- 4427 Feb, [facility] [place] [facility] [address] [id number] [place] [address]- 3941 Feb, [facility] [place] [facility] [address] [id number] [place] [address]- 6113 Feb, [facility] [place] [facility] [address] [id number] [place] [address]- 6088 22 Jan, 2014 [facility] [place] [facility] [address] [id number] [place] [address]- 254 22 Jan, 2013 [facility] [place] [facility] [address] [id number] [place] [address] 16 Jan, 2013 [facility] [place] [facility] [address] [id number] [place] [address] 16 Sep, 2013 [facility] [place] [facility] [address] [id number] [place] [address] 12 Jan, 2013 [facility] [place] [facility] [address] [id number] [place] [address] Jan, [facility] [place] [facility] [address] [id number] [place] [address] Jan, [facility] [place] [facility] [address] [id number] [place] [address] Dec, [facility] [place] [facility] [address] [id number] [place] [address] Dec, [facility] [place] [facility] [address] [id number] [place] [address] Dec, [facility] [place] [facility] [address] [id number] [place] [address] Dec, [facility] [place] [facility] [address] [id number] [place] [address] Dec, [facility] [place] [facility] [address] [id number] [place] [address] Dec, [facility] [place] [facility] [address] [id number] [place] [address] Dec, [facility] [place] [facility] [address] [id number] [place] [address] Dec, [facility] [place] [facility] [address] [id number] [place] [address] Oct, [facility] [place] [facility] [address] [id number] [place] [address] Oct, [facility] [place] [facility] [address] [id number] [place] [address] September, [facility] [place] [facility] [address] [id number] [place] [address] September, [facility] [place] [facility] [address] [id number] [place] [address] September, [facility] [place] [facility] [address] [id number] [place] [address] September, [facility] [place] [facility] [address] [id number] [place] [address] September, [facility] [place] [facility] [address] [id number] [place] [address] September, [facility] [place] [facility] [address] [id number] [place] [address] September, [facility] [place] [facility] [address] [id number] [place] [address] Aug, [facility] [place] [facility] [address] [id number] [place] [address] Aug, [facility] [place] [facility] [address] [id number] [place] [address] Jul, [facility] [place] [facility] [address] [id number] [place] [address] 24 Jul, 2013 [facility] [place] [facility] [address] [facility] [id number] [place] [address] 17 Jul, 2013 [facility] [place] [facility] [address] [id number] [place] [address] 17 Jul, 2013 [facility] [place] [facility] [address] [id number] [place] [address] 14 Jul, 2013 [facility] [place] [facility] [address] [facility] [id number] [place] [address] 14 Jul, 2013 [facility] [place] [facility] [address] [facility] [id number] [place] [address] Jul, [facility] [place] [facility] [address] [id number] [place] [address] Jul, [facility] [place] [facility] [address] [id number] [place] [address] 15 May, 2013 [facility] [place] [facility] [address] [id number] [place] [address] 15 May, 2013 [facility] [place] [facility] [address] [id number] [place] [address] 14 May, 2013 [facility] [place] [facility] [address] [id number] [place] [address] 14 May, 2013 [facility] [place] [facility] [address] [id number] [place] [address] 18 Apr, 2013 [facility] [place] [facility] [address] [id number] [place] [address] 20 Mar, 2013 [facility] [place] [facility] [address] [id number] [place] [address] 20 Mar, 2013 [facility] [place] [facility] [address] [id number] [place] [address] 20 Mar, 2013 [facility] [place] [facility] [address] [id number] [place] [address] Mar, [facility] [place] [facility] [address] [id number] [place] [address] 18 Mar, 2013 [facility] [place] [facility] [address] [id number] [place] [address] 18 Mar, 2013 [facility] [place] [facility] [address] [id number] [place] [address]35 18 Mar, 2013 [facility] [place] [facility] [address] [id number], [place] [address] 18 Mar, 2013 [facility] [place] [facility] [address] [id number], [place] [address] Mar, [facility] [place] [facility] [address] [id number], [place] [address] 11 Mar, 2013 [facility] [place] [facility] [address] [id number][place] [address] 137[address] 04 Mar, 2013 [facility] [place] [facility] [address] [id number], [place] [address] 04 Mar, 2013 [facility] [place] [facility] [address] [id number], [place] [address] 15 Feb, 2013 [facility] [place] [facility] [address] [id number][place] [address] Feb, [facility] [place] [facility] [address] [id number] [place] [address] 48[address] Feb, [facility] [place] [facility] [address] [id number] [place] [address] 8581 Feb, [facility] [place] [facility] [address] [id number] [place] [address]- 2259 Feb, [facility] [place] [facility] [address] [id number] [place] [address] 366[address] Jan, [facility] [place] [facility] [address] [id number] [place] [address] 7391 Dec, [facility] [place] [facility] [address] [id number] [place] [address]- 2960 Dec, [facility] [place] [facility] [address] [id number] [place] [address] 9201 Dec, [facility] [place] [facility] [address] [id number] [place] [address]- 6798 Nov, [facility] [place] [facility] [address] [id number] [place] [address]- 7667 Nov, [facility] [place] [facility] [address] [id number] [place] [address]- 4438 Nov, [facility] [place] [facility] [address] [id number] [place] [address]- 2590 Oct, [facility] [place] [facility] [address] [id number] [place] [address] 0062 Oct, [facility] [place] [facility] [address] [id number] [place] [address]- 4826 Oct, [facility] [place] [facility] [address] [id number] [place] [address] September, [facility] [place] [facility] [address] [id number] [place] [address] September, [facility] [place] [facility] [address] [id number] [place] [address] 0755 14 Sep, 2012 [facility] [address] [id number] [place] [address] 6442 September, [facility] [address] [id number] [place] [address] 9533 September, [facility] [address] [id number] [place] [address] 6062 Aug, [facility] [address] [id number] [place] [address] 0537 Aug, [facility] [address] [id number] [place] [address] 9932 Aug, [facility] [address] [id number] [place] [address] 9788 Jul, [facility] [address] [id number] [place] [address] 3150 Jul, [facility] [address] [id number] [place] [address] 8029 Jul, [facility] [address] [id number] [place] [address] 8732 Jul, [facility] [address] [id number] [place] [address] 1419 Jul, [facility] [address] [id number] [place] [address]- 0791 Jul, [facility] [address] [id number] [place] [address] 1996 Jul, [facility] [place] [facility] [address] [id number] [place] [address] 9884 May, [facility] [place] [facility] [address] [id number] [place] [address]- 0686 May, [facility] [address] [id number] [place] [address] 45[address] May, [facility] [place] [facility] [address] [id number] [place] [address]- 1164 Apr, [facility] [place] [facility] [address] [id number] [place] [address]- 8946 Apr, [facility] [place] [facility] [address] [facility] [id number] [place] [address]- 1617 Apr, [facility] [place] [facility] [address] [id number] [place] [address] 9309 Apr, [facility] [place] [facility] [address] [id number] [place] [address]- 3798 Apr, [facility] [place] [facility] [address] [id number] [place] [address]- 6806 Mar, [facility] [place] [facility] [address] [id number] [place] [address]- 5382 Mar, [facility] [place] [facility] [address] [id number], [place] [address] 6595 Mar, [facility] [place] [facility] [address] [id number] [place] [address]- 1380 Mar, [facility] [place] [facility] [address] [facility] [id number], [place] [address]- 3364 Feb, [facility] [place] [facility] [address] [id number], [place] [address]- 5886 Feb, [facility] [place] [facility] [address] [id number], [place] [address]- 3897 Feb, [facility] [place] [facility] [address] [id number][place] [address] 1994 Feb, [facility] [place] [facility] [address] [facility] [id number], [place] [address]- 3036 Feb, [facility] [place] [facility] [address] [facility] [id number], [place] [address]- 2546 Jan, [facility] [place] [facility] [address] [id number] [place] [address]- 1282 Dec, [facility] [place] [facility] [address] [id number] [place] [address]- 7349 Dec, [facility] [place] [facility] [address] [id number] [place] [address]- 2979 Dec, [facility] [place] [facility] [address] [id number] [place] [address]- 2404 Nov, [facility] [place] [facility] [address] [id number] [place] [address]- 7045 Nov, [facility] [place] [facility] [address] [id number] [place] [address]- 8904 Nov, [facility] [place] [facility] [address] [id number] [place] [address]- 1427 Oct, [facility] [place] [facility] [address] [id number] [place] [address]- 0157 Oct, [facility] [place] [facility] [address] [id number] [place] [address]- 9329 Oct, [facility] [place] [facility] [address] [id number] [place] [address]- 0433 Oct, [facility] [place] [facility] [address] [id number] [place] [address]- 1124 September, [facility] [place] [facility] [address] [id number] [place] [address]- 9414 September, [facility] [place] [facility] [address] [id number] [place] [address]- 7022 30 Aug, 2011 [facility] [place] [facility] [address] [id number] [place] [address]- 5684 Aug, [facility] [place] [facility] [address] [id number] [place] [address]- 8480 Aug, [facility] [place] [facility] [address] [id number] [place] [address]- 2782 Aug, [facility] [place] [facility] [address] [id number] [place] [address] 2545 Aug, [facility] [address] [id number] [place] [address]- 8135 Aug, [facility] [place] [facility] [address] [id number] [place] [address]- 3706 Aug, [facility] [address] [id number] [place] [address]- 1026 Jul, [facility] [address] [id number] [place] [address]- 0546 Jul, [facility] [address] [id number] [place] [address]- 1983 Jul, [facility] [address] [id number] [place] [address]- 4197 May, [facility] [address] [id number] [place] [address]- 4066 May, [facility] [address] [id number] [place] [address]- 1365 May, [facility] [address] [id number] [place] [address]- 2450 Apr, [facility] [address] [id number] [place] [address]- 1829 Apr, [facility] [address] [id number] [place] [address]- 0883 Mar, [facility] [place] [facility] [address] [id number] [place] [address]- 8321 Mar, [facility] [place] [facility] [address] [id number] [place] [address]- 4566 Mar, [facility] [place] [facility] [address] [id number] [place] [address]- 9537 Mar, [facility] [place] [facility] [address] [id number] [place] [address] 2546 Mar, [facility] [address] [facility] [id number], [place] [address]- 6096 Mar, [facility] [address] [facility] [id number], [place] [address] 2546 Feb, [facility] [address] [facility] [id number], [place] [address]- 9726 Feb, [facility] [address] [facility] [id number], [place] [address]- 0296 Feb, IMMUNIZATIONS No Known Immunizations SOCIAL HISTORY Never Assessed REASON FOR VISIT 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), med refills-Lori HORN PLAN OF CARE Activity Details Follow Up 3 Months Reason: VITAL SIGNS Height 72 in 2017-09-28 Weight 265.3 lbs 2017-09-28 Temperature 98.1 degrees Fahrenheit 2017-09-28 Heart Rate 64 bpm 2017-09-28 Respiratory Rate 22 2017-09-28 BMI 35.98 kg/m2 2017-09-28 Blood pressure systolic 144 mmHg 2017-09-28 Blood pressure diastolic 82 mmHg 2017-09-28 MEDICATIONS Medication Instructions Dosage Frequency Start Date End Date Duration Status Celexa 40 TAKE ONE TABLET BY MOUTH DAILY 30 Active Albuterol Sulfate (2.5 MG/3ML) 0.083% Inhalation Three times a day 3 ml 8h May, Active Metformin HCl 1,000 TAKE ONE TABLET BY MOUTH WITH MORNING AND WITH EVENING MEALS TWO TIMES A DAY 30 Active Lopid 600 TAKE ONE TABLET BY MOUTH TWICE A DAY 30 Active NovoLog Flexpen 100 UNIT/ML Subcutaneous 3 times a day with meals 30 units May, Active Bactrim DS 800-160 MG Orally Twice a day 1 tablet 12h Active Lantus 100 unit/ml Subcutaneous Once a day 120 UNITS 24h Active Blood Glucose Test Strip as directed Mar, Active Cymbalta 60 TAKE ONE CAPSULE BY MOUTH ONCE A DAY 30 Active Hydrocodone-Acetaminophen 10-325 MG Orally every 6 hrs 1 tablet as needed 6h Aug, 28 days Active Remeron 30 TAKE ONE TABLET BY MOUTH EVERY NIGHT AT BEDTIME 90 Active Atorvastatin Calcium 40 MG TAKE ONE TABLET BY MOUTH ONCE DAILY 30 Active Amlodipine Besylate 10 MG TAKE ONE TABLET BY MOUTH ONCE DAILY 30 Active Oxygen 2 LPM inhalation at night while sleeping Active MS Contin 30 MG Orally every 8 hours 1 tablet 8h Aug, 28 days Active AgaMatrix Presto Test - TEST BLOOD SUGAR TWO TIMES A DAY . E11.9 50 Active Xanax 1 MG Orally TID PRN 1 tablet May, Active Lyrica 225 mg Orally Twice a day 1 capsule 12h 30 Active Insulin Detemir 100 UNIT/ML Subcutaneous at bedtime 120 u Aug, Active Tizanidine HCl 4 MG Orally Three times a day 1 tablet as needed 8h Jul, Not-Taking Soma 350 mg Orally Once a day 1 tablet as needed 24h Active RESULTS Name Result Date Reference Range A1C (IN HOUSE) 2017-09-28 A1C IN HOUSE 8.0 4.3 - 5.6 % Previous A1c 9.1 Lot [id number] Exp date 07/2019 PROCEDURES Procedure Date Ordered Result Body Site GLYCATED HEMOGLOBIN TEST September 28, 2017 INSTRUCTIONS MEDICATIONS ADMINISTERED No Known Medications MEDICAL [...]
[2018-05-16] MEDS ORDERED: ASPIRIN 81 MG CHEW (CHILDREN'S ASA) PO ONE (07:00)
--- OUTSIDE RECORDS SUMMARY | 2018-05-16 07:00 | XMS REPORT ---
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 Name Role Phone FERNY SILVERIO Unavailable PROBLEMS Type Condition ICD9-CM Code TIR38-ON Code Onset Dates Condition Status SNOMED Code Problem Hypoxia R09.02 Active 528186084 Problem Port catheter in place Z95.828 Active 834219392 Problem Anxiety F41.9 Active 69519791 Problem Type 2 diabetes mellitus with diabetic peripheral angiopathy without gangrene E11.51 Active 571989621 Problem Pressure ulcer of other site, stage 3 L89.893 Active 321561148 Problem Lumbar radiculopathy, chronic M54.16 Active 833998817 Problem PAD (peripheral artery disease) I73.9 Active 924509259 Problem rn long term care current use of insulin Z79.4 Active 486538283 Problem Recurrent major depressive disorder, in full remission F33.42 Active 481681085 Problem Diabetes E11.9 Active 92272678 Problem Hypertension I10 Active 13317303 Problem Back pain M54.9 Active 428903085 Problem Insulin long-term use Z79.4 Active 555300164 Problem COPD (chronic obstructive pulmonary disease) J44.9 Active 35525460 ALLERGIES No Information ENCOUNTERS Encounter Location Date Diagnosis [place] [id number] [place] [address] 77246- 4936 Nov, Back pain M54.9 and Anxiety F41.9 [facility] [id number] [place] [address] 97861- 4837 Oct, [place] [address] [place] [id number] [place] [address] 16518- 2315 Oct, Back pain M54.9 and Anxiety F41.9 [place] [address] [place] [id number] [place] [address] 09993- 5132 September, Anxiety F41.9 and Back pain M54.9 [place] [address] [place] [id number] [place] [address] 25554- 9602 September, Diabetes E11.9 ; Hypertension I10 ; COPD (chronic obstructive pulmonary disease) J44.9 and Lumbar radiculopathy, chronic M54.16 [place] [address] [place] [id number] [place] [address] 96342- 5358 September, Anxiety F41.9 [place] [address] 12029- 5328 Aug, [place] [address] 47914- 6255 Aug, [place] [address] 01551- 8801 Aug, Anxiety F41.9 and Back pain M54.9 [place] [address] [place] [id number] [place] [address] 22902- 1836 Aug, Medicare annual wellness visit, initial Z00.00 ; COPD ( chronic obstructive pulmonary disease) J44.9 ; PAD (peripheral artery disease) I73.9 ; Insulin long-term use Z79.4 ; Hypertension I10 ; Anxiety F41.9 ; Recurrent major depressive disorder, in full remission F33.42 ; Pressure ulcer of other site, stage 3 L89.893 ; Type 2 diabetes mellitus with diabetic peripheral angiopathy without gangrene E11.51 and rn long term care current use of insulin Z79.4 [place] [id number] [place] [address] 62846- 8138 Jul, Back pain M54.9 [place] [address] 50655- 0903 Jul, [place] [address] [place] [id number] [place] [address] 20566- 1545 Jul, Anxiety F41.9 and Back pain M54.9 [place] [address] [place] [id number] [place] [address] 32148- 1779 Jul, Diabetes E11.9 [facility] [address] [id number] [place] [address] 36361- 7395 May, [facility] [address] [id number] [place] [address] 93975- 9885 May, Diabetes E11.9 ; Anxiety F41.9 ; Back pain M54.9 and COPD ( chronic obstructive pulmonary disease) J44.9 [facility] [address] [place] [id number] [place] [address] 65220- 4677 May, Back pain M54.9 [facility] [address] 23644- 8257 May, [facility] [address] [place] [id number] [place] [address] 93536- 5523 Apr, Back pain M54.9 [facility] [address] [place] [id number] [place] [address] 02922- 1813 Mar, Back pain M54.9 [facility] [address] [id number] [place] [address] 47884- 0623 Mar, [facility] [address] [place] [id number] [place] [address] 65723- 5598 16 Mar, 2017 [facility] [address] [id number] [place] [address] 66937- 9975 14 Mar, 2017 Radiculopathy of lumbar region M54.16 [facility] [address] [place] [id number] [place] [address] 80675- 3691 13 Mar, 2017 [facility] [address] [place] [id number] [place] [address] 43417- 8560 07 Mar, 2017 Encounter for immunization Z23 and Lumbar radiculopathy, chronic M54.16 [facility] [address] [place] [id number] [place] [address] 49222- 1693 Mar, Back pain M54.9 and Anxiety F41.9 [facility] [address] [address] 10 Feb, 2017 Acute bilateral low back pain with left-sided sciatica M54.42 and Acute bilateral low back pain with right-sided sciatica M54.41 [facility] [address] [place] [id number] [place] [address] 49138- 7687 Feb, [facility] [address] [place] [id number] [place] [address] 84031- 2311 Feb, Back pain M54.9 [facility] [address] [place] [id number] [place] [address] 62186- 4293 05 Jan, 2017 Back pain M54.9 and Anxiety F41.9 [facility] [address] [place] [id number] [place] [address] 75264- 2953 05 Jan, 2017 Diabetes E11.9 [facility] [address] [place] [id number] [place] [address] 94395- 3606 Dec, Diabetes E11.9 ; Back pain M54.9 ; Anxiety F41.9 and Insulin long-term use Z79.4 [facility] [address] [place] [id number] [place] [address] 05304- 7388 Dec, Anxiety F41.9 [facility] [address] [place] [id number] [place] [address] 40257- 6668 Dec, Back pain M54.9 [facility] [address] [place] [id number] [place] [address] 58706- 9949 Nov, Back pain M54.9 [facility] [address] [place] [id number] [place] [address] 92733- 9312 Oct, Back pain M54.9 and Anxiety F41.9 [facility] [address] [place] [id number] [place] [address] 64441- 8551 September, Back pain M54.9 [facility] [address] [place] [id number] [place] [address] 52087- 3250 September, Back pain M54.9 and Anxiety F41.9 [facility] [address] [place] [id number] [place] [address] 21513- 4685 Aug, Diabetes E11.9 ; Anxiety F41.9 ; Back pain M54.9 and PAD ( peripheral artery disease) I73.9 [facility] [address] [place] [id number] [place] [address] 49331- 9816 19 Aug, 2016 Anxiety F41.9 [facility] [address] 59369- 8393 14 Aug, 2016 Back pain M54.9 [facility] [address] 77152- 4766 Jul, Back pain M54.9 [facility] [address] [place] [id number] [place] [address] 60080- 8086 Jul, Back pain M54.9 [facility] [address] 40472- 8907 Jul, Back pain M54.9 [facility] [address] 29124- 3552 16 Jul, 2016 Dorsalgia M54.9 [facility] [address] [place] [id number] [place] [address] 30672- 9693 14 Jul, 2016 [facility] [address] [place] [id number] [place] [address] 54812- 4897 May, Back pain M54.9 [facility] [address] [place] [id number] [place] [address] 85629- 2777 May, Diabetes E11.9 ; Anxiety F41.9 ; Port catheter in place Z95.828 ; Encounter for immunization Z23 and Insulin long-term use Z79.4 [facility] [address] [place] [id number] [place] [address] 28960- 9605 Apr, Back pain M54.9 [facility] [address] 22731- 9061 Apr, Back pain M54.9 [facility] [address] [place] [id number] [place] [address] 48118- 0100 Apr, [facility] [address] [place] [id number] [place] [address] 15973- 6748 Apr, Back pain M54.9 [facility] [address] [place] [id number] [place] [address] 88875- 0477 Mar, COPD (chronic obstructive pulmonary disease) J44.9 [facility] [address] [place] [id number] [place] [address] 96435- 9553 Feb, [facility] [address] [place] [id number] [place] [address] 84625- 9123 30 Jan, 2016 [facility] [address] [place] [id number] [place] [address] 37466- 8722 Jan, [facility] [address] 84348- 7327 Jan, [facility] [address] [place] [id number] [place] [address] 12026- 7962 Jan, [facility] [address] [place] [id number] [place] [address] 72303- 3230 Dec, Diabetes E11.9 ; Hypoxia R09.02 and Back pain M54.9 [facility] [address] [place] [id number] [place] [address] 88504- 7752 Dec, [facility] [address] [place] [id number] [place] [address] 52531- 2716 Nov, [facility] [address] [place] [id number] [place] [address] 08566- 6262 Oct, Anxiety F41.9 [facility] [address] [place] [id number] [place] [address] 26289- 1788 Oct, Back pain M54.9 [facility] [address] [place] [id number] [place] [address] 87992- 8425 September, Back pain M54.9 [facility] [address] [place] [address] 90970- 5345 September, Diabetes E11.9 [facility] [address] [place] [id number] [place] [address] 42809- 0951 September, [facility] [address] [place] [id number] [place] [address] 93295- 2899 September, Diabetes E11.9 ; Insulin long-term use Z79.4 and Back pain M54.9 [facility] [address] [place] [id number] [place] [address] 20939- 2026 Aug, Back pain M54.9 [facility] [address] [place] [id number] [place] [address] 09104- 6843 Aug, Back pain M54.9 ; Anxiety F41.9 and Arthropathy, unspecified M12.9 [facility] [address] [place] [id number] [place] [address] 01157- 8640 Jul, Back pain M54.9 [facility] [address] [place] [id number] [place] [address] 90659- 7467 Jul, Anxiety F41.9 [facility] [address] [place] [id number] [place] [address] 14350- 8925 Jul, Back pain M54.9 [facility] [address] [place] [id number] [place] [address] 21262- 8940 Jul, [facility] [address] [place] [id number] [place] [address] 12780- 0124 Jul, [facility] [address] [place] [id number] [place] [address] 82996- 8826 May, Back pain M54.9 ; Diabetes E11.9 ; Insulin long-term use Z79.4 ; COPD (chronic obstructive pulmonary disease) J44.9 and Hypertension I10 [facility] [address] [place] [id number] [place] [address] 87587- 9795 May, Chronic pain G89.29 [facility] [address], [place] [address]- 9224 Apr, [facility] [address] [place] [id number] [place] [address] 99298- 7218 Apr, [facility] [address] [place] [id number] [place] [address] 60551- 3448 Mar, [facility] [address] [place] [id number] [place] [address] 57634- 2070 Mar, Encounter for immunization Z23 and Diabetes E11.9 [facility] [address] [place] [id number] [place] [address] 54452- 5422 Feb, [facility] [address] [place] [id number] [place] [address] 50270- 3425 Feb, [facility] [address] [place] [id number] [place] [address] 26149- 7209 Jan, [facility] [address] [id number] [place] [address] 61895- 0759 Jan, [facility] [address] [place] [id number] [place] [address] 15493- 5302 Dec, [facility] [address] [address]- 0751 Dec, [facility] [address] [place] [address] 93596- 4086 Dec, Unspecified arthropathy, site unspecified 716.90 and Diabetes mellitus type 2, uncontrolled 250.02 [facility] [address], [place] [address]- 4476 Dec, [facility] [address] [id number] [place] [address] 46941- 4660 Nov, [facility] [address] [address]- 4716 Oct, [facility] [address] [place] [place] [address]- 2602 September, [facility] [place] [facility] [address] [id number] [place] [address]- 1234 September, [facility] [place] [facility] [address] [id number] [place] [address]- 7161 September, [facility] [place] [facility] [address] [id number] [place] [address]- 6299 September, [facility] [place] [facility] [address] [id number] [place] [address]- 2121 14 Aug, 2014 [facility] [place] [facility] [address] [id number] [place] [address]- 9770 13 Aug, 2014 [facility] [place] [facility] [address] [id number] [place] [address]- 3949 18 Jul, 2014 [facility] [place] [facility] [address] [id number] [place] [address]- 4728 18 Jul, 2014 [facility] [place] [facility] [address] [id number] [place] [address]- 7261 16 Jul, 2014 [facility] [place] [facility] [address] [id number] [place] [address]- 9334 16 Jul, 2014 [facility] [place] [facility] [address] [id number] [place] [address]- 3167 16 Jul, 2014 [facility] [place] [facility] [address] [id number] [place] [address]- 8484 16 Jul, 2014 [facility] [place] [facility] [address] [id number] [place] [address]- 8619 16 Jul, 2014 [facility] [place] [facility] [address] [id number] [place] [address]- 2618 16 Jul, 2014 [facility] [place] [facility] [address] [id number] [place] [address]- 7537 16 Jul, 2014 [facility] [place] [facility] [address] [id number] [place] [address]- 1644 13 Jul, 2014 [facility] [place] [facility] [address] [id number] [place] [address]- 2041 Jul, 2014 [facility] [place] [facility] [address] [id number] [place] [address]- 0963 Jul, 2014 [facility] [place] [facility] [address] [id number] [place] [address]- 1780 Jul, 2014 [facility] [place] [facility] [address] [id number] [place] [address]- 7374 17 Jul, 2014 [facility] [place] [facility] [address] [id number] [place] [address]- 6686 17 Jul, 2014 [facility] [place] [facility] [address] [id number] [place] [address]- 8460 16 Jul, 2014 [facility] [place] [facility] [address] [id number] [place] [address]- 8742 16 Jul, 2014 [facility] [place] [facility] [address] [id number] [place] [address]- 1615 16 Jul, 2014 [facility] [place] [facility] [address] [id number] [place] [address]- 4806 16 Jul, 2014 [facility] [place] [facility] [address] [id number] [place] [address]- 1306 16 Jul, 2014 [facility] [place] [facility] [address] [id number] [place] [address]- 2647 16 Jul, 2014 [facility] [place] [facility] [address] [id number] [place] [address]- 2695 16 Jul, 2014 [facility] [place] [facility] [address] [id number] [place] [address]- 1580 16 Jul, 2014 [facility] [place] [facility] [address] [id number] [place] [address]- 1414 16 Jul, 2014 [facility] [place] [facility] [address] [id number] [place] [address]- 5362 16 Jul, 2014 [facility] [place] [facility] [address] [id number] [place] [address]- 3471 16 Jul, 2014 [facility] [place] [facility] [address] [id number] [place] [address]- 1739 Jul, 2014 [facility] [place] [facility] [address] [id number] [place] [address]- 5846 Jul, 2014 [facility] [place] [facility] [address] [id number] [place] [address]- 7736 Jul, [facility] [place] [facility] [address] [id number] [place] [address]- 2771 May, [facility] [place] [facility] [address] [id number] [place] [address]- 1272 May, [facility] [place] [facility] [address] [id number] [place] [address]- 9166 May, [facility] [place] [facility] [address] [id number] [place] [address]- 4632 May, [facility] [place] [facility] [address] [id number] [place] [address]- 9900 May, [facility] [place] [facility] [address] [id number] [place] [address]- 0068 May, [facility] [place] [facility] [address] [id number] [place] [address]- 3618 May, [facility] [place] [facility] [address] [id number] [place] [address]- 7752 May, [facility] [place] [facility] [address] [id number] [place] [address]- 3817 May, [facility] [place] [facility] [address] [id number] [place] [address]- 9928 May, [facility] [place] [facility] [address] [id number] [place] [address]- 1023 Apr, [facility] [place] [facility] [address] [id number] [place] [address]- 2850 Apr, [facility] [place] [facility] [address] [id number] [place] [address]- 9385 Apr, [facility] [place] [facility] [address] [id number] [place] [address]- 7125 Apr, [facility] [place] [facility] [address] [facility] [id number] [place] 2508 Apr, [facility] [place] [facility] [address] [id number] [place] [address]- 9587 Apr, [facility] [place] [facility] [address] [id number] [place] [address]- 6260 Mar, [facility] [place] [facility] [address] [id number] [place] [address]- 0007 Mar, [facility] [place] [facility] [address] [id number] [place] [address]- 2786 Mar, [facility] [place] [facility] [address] [id number], [place] [address]- 6133 Mar, [facility] [place] [facility] [address] [id number] [place] [address]- 9507 Mar, [facility] [place] [facility] [address] [id number] [place] [address]- 2077 Mar, [facility] [place] [facility] [address] [id number], [place] [address]- 2614 Mar, [facility] [place] [facility] [address] [id number], [place] [address]- 5466 Mar, [facility] [place] [facility] [address] [id number] [place] [address]- 8365 Mar, [facility] [place] [facility] [address] [id number], [place] [address]- 1836 Mar, [facility] [place] [facility] [address] [id number], [place] [address]- 1125 Mar, [facility] [place] [facility] [address] [id number] [place] [address]- 6627 30 Feb, 2014 [facility] [place] [facility] [address] [id number] [place] [address]- 5161 30 Feb, 2014 [facility] [place] [facility] [address] [id number] [place] [address] Feb, [facility] [place] [facility] [address] [id number] [place] [address] Feb, [facility] [place] [facility] [address] [id number] [place] [address] Feb, [facility] [place] [facility] [address] [id number] [place] [address] Feb, [facility] [place] [facility] [address] [id number] [place] [address] Feb, [facility] [place] [facility] [address] [id number] [place] [address] Feb, [facility] [place] [facility] [address] [id number] [place] [address] Feb, [facility] [place] [facility] [address] [id number] [place] [address] Feb, [facility] [place] [facility] [address] [id number] [place] [address] 22 Jan, 2014 [facility] [place] [facility] [address] [id number] [place] [address]- [address] 22 Jan, 2013 [facility] [place] [facility] [address] [id number] [place] [address] 16 Jan, 2013 [facility] [place] [facility] [address] [id number] [place] [address] 16 Sep, 2013 [facility] [place] [facility] [address] [id number] [place] [address]- [address] 12 Jan, 2013 [facility] [place] [facility] [address] [id number] [place] [address] Jan, [facility] [place] [facility] [address] [id number] [place] [address] Jan, [facility] [place] [facility] [address] [id number] [place] [address] Dec, [facility] [place] [facility] [address] [id number] [place] [address] Dec, [facility] [place] [facility] [address] [id number] [place] [address]- [address] Dec, [facility] [place] [facility] [address] [id number] [place] [address]99 Dec, [facility] [place] [facility] [address] [id number] [place] [address] Dec, [facility] [place] [facility] [address] [id number] [place] [address] Dec, [facility] [place] [facility] [address] [id number] [place] [address]- [address] Dec, [facility] [facility] [address] [id number] [place] [address] Dec, [facility] [place] [facility] [address] [id number] [place] [address] Oct, [facility] [facility] [address] [id number] [place] [address] Oct, [facility] [place] [facility] [address] [id number] [place] [address]- [address] September, [facility] [place] [facility] [address] [id number] [place] [address] September, [facility] [place] [facility] [address] [id number] [place] [address]- [address] September, [facility] [facility] [address] [id number] [place] [address] September, [facility] [place] [facility] [address] [id number] [place] [address]- [address] September, [facility] [place] [facility] [address] [id number] [place] [address]- [address] September, [facility] [place] [facility] [address] [id number] [place] [address]- [address] September, [facility] [place] [facility] [address] [id number] [place] [address]- [address] Aug, [facility] [place] [facility] [address] [id number] [place] [address]- [address] Aug, [facility] [place] [facility] [address] [id number] [place] [address] Jul, [facility] [place] [facility] [address] [id number] [place] [address]- [address] 24 Jul, 2013 [facility] [place] [facility] [address] [id number] [place] [address]- [address] Jul, [facility] [place] [facility] [address] [id number] [place] [address]- [address] Jul, [facility] [place] [facility] [address] [id number] [place] [address]- [address] 14 Jul, 2013 [facility] [place] [facility] [address] [id number] [place] [address]- [address] 14 Jul, 2013 [facility] [facility] [address] [id number] [place] [address] Jul, [facility] [place] [facility] [address] [id number] [place] [address]- [address] Jul, [facility] [place] [facility] [address] [id number] [place] [address]- [address] May, [facility] [place] [address] [id number] [place] [address]- [address] May, [facility] [place] [facility] [address] [id number] [place] [address]- [address] May, [facility] [place] [facility] [address] [id number] [place] [address]- [address] 14 May, 2013 [facility] [place] [facility] [address] [id number] [place] [address] 18 Apr, 2013 [facility] [place] [facility] [address] [id number] [place] [address]- [address] Mar, [facility] [place] [facility] [address] [id number] [place] [address] Mar, [facility] [place] [facility] [address] [id number] [place] [address] Mar, [facility] [place] [facility] [address] [id number] [place] [address] Mar, [facility] [place] [facility] [address] [id number] [place] [address] Mar, [facility] [place] [facility] [address] [id number] [place] [address] Mar, [facility] [place] [facility] [address] [id number] [place] [address] Mar, [facility] [place] [facility] [address] [id number] [place] [address] 18 Mar, 2013 [facility] [place] [facility] [address] [id number] [place] [address] Mar, [facility] [place] [facility] [address] [id number], [place] [address] Mar, [facility] [place] [facility] [address] [id number] [place] [address]347 Mar, [facility] [place] [facility] [address] [id number] [place] [address] 04 Mar, 2013 [facility] [place] [facility] [address] [id number], [place] [address] 15 Feb, 2013 [facility] [place] [facility] [address] [id number], [place] [address] Feb, [facility] [place] [facility] [address] [id number] [place] [address] Feb, [facility] [place] [facility] [address] [id number] [place] [address] Feb, [facility] [place] [facility] [address] [id number] [place] [address]31 Feb, [facility] [place] [facility] [address] [id number] [place] [address] Jan, [facility] [place] [facility] [address] [id number] [place] [address] 65[address] Dec, [facility] [place] [facility] [address] [id number] [place] [address]- [address] Dec, [facility] [place] [facility] [address] [id number] [place] [address] 9071 Dec, [facility] [place] [facility] [address] [id number] [place] [address] 1487 Nov, [facility] [place] [facility] [address] [id number] [place] [address] 7789 Nov, [facility] [place] [facility] [address] [id number] [place] [address]393 Nov, [facility] [place] [facility] [address] [id number] [place] [address]- 7111 Oct, [facility] [place] [facility] [address] [id number] [place] [address] 8334 Oct, [facility] [place] [facility] [address] [id number] [place] [address] 3029 Oct, [facility] [place] [facility] [address] [id number] [place] [address] September, [facility] [place] [facility] [address] [id number] [place] [address] 2991 September, [facility] [place] [facility] [address] [id number] [place] [address]- 9692 14 Sep, 2012 [facility] [address] [id number] [place] [address] September, [facility] [address] [id number] [place] [address] September, [facility] [address] [id number] [place] [address]377 Aug, [facility] [address] [id number] [place] [address] 9929 Aug, [facility] [address] [id number] [place] [address] 8480 Aug, [facility] [address] [id number] [place] [address]134 Jul, [facility] [address] [id number] [place] [address]- 0099 Jul, [facility] [address] [id number] [place] [address]- 1467 Jul, [facility] [address] [id number] [place] [address]- 7516 Jul, [facility] [address] [id number] [place] [address] 4627 Jul, [facility] [address] [id number] [place] [address] 6475 Jul, [facility] [address] [id number] [place] [address]- 4610 Jul, [facility] [address] [id number] [place] [address]126 May, [facility] [address] [id number] [place] [address]- 2546 May, [facility] [address] [id number] [place] [address]- 4965 May, [facility] [place] [facility] [address] [id number] [place] [address]- 0832 Apr, [facility] [place] [facility] [address] [id number] [place] [address] 9968 Apr, [facility] [place] [facility] [address] [id number] [place] [address]- [address]381 Apr, [facility] [place] [facility] [address] [id number] [place] [address]- 8474 Apr, [facility] [place] [facility] [address] [id number] [place] [address]- 2429 Apr, [facility] [place] [facility] [address] [id number] [place] [address]- 0164 Mar, [facility] [place] [facility] [address] [id number] [place] [address]- 9082 Mar, [facility] [place] [facility] [address] [id number], [place] [address]107 Mar, [facility] [place] [facility] [address] [id number] [place] [address] 7422 Mar, [facility] [place] [facility] [address] [id number], [place] [address]- 0754 Feb, [facility] [place] [facility] [address] [id number], [place] [address]- 9644 Feb, [facility] [place] [facility] [address] [id number], [place] [address]- 6[address] Feb, [facility] [place] [facility] [address] [id number], [place] [address]- 4525 Feb, [facility] [place] [facility] [address] [id number], [place] [address]- 6883 Feb, [facility] [place] [facility] [address] [facility] [id number], [place] [address]- 2547 Jan, [facility] [place] [facility] [address] [id number] [place] [address]- 9102 Dec, [facility] [place] [facility] [address] [id number] [place] [address]- 2428 Dec, [facility] [place] [facility] [address] [id number] [place] [address]- 6614 Dec, [facility] [place] [facility] [address] [id number] [place] [address]- 9768 Nov, [facility] [place] [facility] [address] [id number] [place] [address]- [address] Nov, [facility] [place] [facility] [address] [id number] [place] [address]- 1491 Nov, [facility] [place] [facility] [address] [id number] [place] [address]- 4351 Oct, [facility] [place] [facility] [address] [id number] [place] [address]- 8622 Oct, [facility] [place] [facility] [address] [id number] [place] [address]- 4603 Oct, [facility] [place] [facility] [address] [id number] [place] [address]- 5397 Oct, [facility] [place] [facility] [address] [id number] [place] [address]- 2082 September, [facility] [place] [facility] [address] [id number] [place] [address]- 3972 September, [facility] [place] [facility] [address] [id number] [place] [address]- 5987 30 Aug, 2011 [facility] [place] [facility] [address] [id number] [place] [address]- 8135 23 Aug, 2011 [facility] [place] [facility] [address] [id number] [place] [address]- 0651 Aug, [facility] [place] [facility] [address] [id number] [place] [address]- 0577 Aug, [facility] [place] [facility] [address] [id number] [place] [address]- 2457 Aug, [facility] [place] [facility] [address] [id number] [place] [address]- 2263 Aug, [facility] [place] [facility] [address] [id number] [place] [address]- 3006 Aug, [facility] [place] [facility] [address] [id number] [place] [address]- 6205 Jul, [facility] [place] [facility] [address] [id number] [place] [address]- 5356 Jul, [facility] [place] [facility] [address] [id number] [place] [address]- 2345 Jul, [facility] [place] [facility] [address] [id number] [place] [address]- 6337 May, [facility] [address] [id number] [place] [address]- 6651 May, [facility] [place] [facility] [address] [id number] [place] [address]- 8960 May, [facility] [address] [id number] [place] [address]- 6783 Apr, [facility] [place] [facility] [address] [id number] [place] [address]- 6358 Apr, [facility] [place] [facility] [address] [id number] [place] [address]- 6547 Mar, [facility] [place] [facility] [address] [id number] [place] [address]- 8790 Mar, [facility] [place] [facility] [address] [id number] [place] [address]- 6271 Mar, [facility] [place] [facility] [address] [id number] [place] [address]- 3311 Mar, [facility] [place] [facility] [address] [id number] [place] [address] 2546 Mar, [facility] [address] [facility] [id number] [place] [address]- 2546 Mar, [facility] [address] [facility] [id number], [place] [address]- 2546 Feb, [facility] [address] [facility] [id number], [place] [address]- 2546 Feb, [facility] [address] [facility] [id number], [place] [address]- 2546 Feb, IMMUNIZATIONS No Known Immunizations SOCIAL HISTORY Never Assessed REASON FOR VISIT 17 days of Xanax PLAN OF CARE VITAL SIGNS MEDICATIONS Medication Instructions Dosage Frequency Start Date End Date Duration Status Xanax 1 MG Orally 3 times a day 1 tablet 8h May, 17 days Active RESULTS No Results PROCEDURES No [...]
--- OUTSIDE RECORDS SUMMARY | 2018-05-16 07:00 | XMS REPORT ---
Author Author FERNY SILVERIO Organization [facility] Address [address] [place] [address] Care Team Providers Care Director Of Mobile Marketing Name Role Phone FERNY SILVERIO Unavailable PROBLEMS Type Condition ICD9-CM Code [id number] Code Onset Dates Condition Status SNOMED Code Problem Hypoxia R09.02 Active 804838219 Problem Port catheter in place Z95.828 Active 168233654 Problem Anxiety F41.9 Active 42592731 Problem Type 2 diabetes mellitus with diabetic peripheral angiopathy without gangrene E11.51 Active 915249885 Problem Pressure ulcer of other site, stage 3 L89.893 Active 504572366 Problem Lumbar radiculopathy, chronic M54.16 Active 569658370 Problem PAD (peripheral artery disease) I73.9 Active 556664194 Problem 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 [id number] [place] [address] 40502- 9924 Oct, [place] [address] [place] [id number] [place] [address] 15062- 2335 Oct, Back pain M54.9 and Anxiety F41.9 [place] [address] [place] [id number] [place] [address] 07230- 7449 September, Anxiety F41.9 and Back pain M54.9 [place] [address] [place] [id number] [place] [address] 08048- 6999 September, Diabetes E11.9 ; Hypertension I10 ; COPD (chronic obstructive pulmonary disease) J44.9 and Lumbar radiculopathy, chronic M54.16 [place] [address] [place] [id number] [place] [address] 63955- 3759 September, Anxiety F41.9 [place] [address] 87647- 7273 Aug, [place] [address] 33100- 5990 Aug, [place] [address] 12681- 2645 Aug, Anxiety F41.9 and Back pain M54.9 [place] [address] [place] [id number] [place] [address] 01085- 8522 Aug, Medicare annual wellness visit, initial Z00.00 [...] peripheral angiopathy without gangrene E11.51 and intermediate 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 [address] [place] [id number] [place] [address] 26830- 8689 May, [facility] [address] [place] [id number] [place] [address] 45398- 7868 May, Diabetes E11.9 ; Anxiety F41.9 ; Back pain M54.9 and COPD ( chronic obstructive pulmonary disease) J44.9 [facility] [address] [place] [id number] [place] [address] 98818- 9747 May, Back pain M54.9 [facility] [address] 59263- 3844 May, [facility] [address] [place] [id number] [place] [address] 52722- 7941 Apr, Back pain M54.9 [facility] [address] [place] [id number] [place] [address] 32710- 8994 Mar, Back pain M54.9 [facility] [address] [place] [id number] [place] [address] 23818- 8211 Mar, [facility] [address] [place] [id number] [place] [address] 88179- 2514 16 Mar, 2017 [facility] [address] [place] [id number] [place] [address] 84456- 5313 14 Mar, 2017 Radiculopathy of lumbar region M54.16 [facility] [address] [place] [id number] [place] [address] 15470- 9200 13 Mar, 2017 [facility] [address] [place] [id number] [place] [address] 11837- 8267 07 Mar, 2017 Encounter for immunization Z23 and Lumbar radiculopathy, chronic M54.16 [facility] [address] [place] [id number] [place] [address] 96892- 7924 Mar, Back pain M54.9 and Anxiety F41.9 [facility] [address] [address] 10 Feb, 2017 Acute bilateral low back pain with left-sided sciatica M54.42 and Acute bilateral low back pain with right-sided sciatica M54.41 [facility] [address] [place] [id number] [place] [address] 94941- 1042 Feb, [facility] [address] [place] [id number] [place] [address] 17062- 7976 Feb, Back pain M54.9 [facility] [address] [place] [id number] [place] [address] 29110- 3587 05 Jan, 2017 Back pain M54.9 and Anxiety F41.9 [facility] [address] [place] [id number] [place] [address] 13152- 7232 05 Jan, 2017 Diabetes E11.9 [facility] [address] [place] [id number] [place] [address] 45217- 4677 Dec, Diabetes E11.9 ; Back pain M54.9 ; Anxiety F41.9 and Insulin long-term use Z79.4 [facility] [address] [place] [id number] [place] [address] 65802- 2378 Dec, Anxiety F41.9 [facility] [address] [place] [id number] [place] [address] 84232- 2779 Dec, Back pain M54.9 [facility] [address] [place] [id number] [place] [address] 98826- 8839 Nov, Back pain M54.9 [facility] [address] [place] [id number] [place] [address] 25670- 3826 Oct, Back pain M54.9 and Anxiety F41.9 [facility] [address] [place] [id number] [place] [address] 56837- 1095 September, Back pain M54.9 [facility] [address] [place] [id number] [place] [address] 01493- 8815 September, Back pain M54.9 and Anxiety F41.9 [facility] [address] [place] [id number] [place] [address] 29743- 0047 Aug, Diabetes E11.9 ; Anxiety F41.9 ; Back pain M54.9 and PAD ( peripheral artery disease) I73.9 [facility] [address] [place] [id number] [place] [address] 27510- 8396 19 Aug, 2016 Anxiety F41.9 [facility] [address] 97410- 6039 14 Aug, 2016 Back pain M54.9 [facility] [address] 71327- 1626 Jul, Back pain M54.9 [facility] [address] [place] [id number] [place] [address] 64942- 5106 Jul, Back pain M54.9 [facility] [address] 38793- 6482 Jul, Back pain M54.9 [facility] [address] 61985- 3940 16 Jul, 2016 Dorsalgia M54.9 [facility] [address] [place] [id number] [place] [address] 74713- 0360 14 Jul, 2016 [facility] [address] [place] [id number] [place] [address] 28755- 5510 May, Back pain M54.9 [facility] [address] [place] [id number] [place] [address] 21550- 9318 May, Diabetes E11.9 ; Anxiety F41.9 ; Port catheter in place Z95.828 ; Encounter for immunization Z23 and Insulin long-term use Z79.4 [facility] [address] [place] [id number] [place] [address] 32015- 9420 Apr, Back pain M54.9 [facility] [address] 27774- 5233 Apr, Back pain M54.9 [facility] [address] [place] [id number] [place] [address] 40732- 9613 Apr, [facility] [address] [place] [id number] [place] [address] 63672- 1064 Apr, Back pain M54.9 [facility] [address] [place] [id number] [place] [address] 73861- 6412 Mar, COPD (chronic obstructive pulmonary disease) J44.9 [facility] [address] [place] [id number] [place] [address] 30476- 8122 Feb, [facility] [address] [place] [id number] [place] [address] 52403- 8748 30 Jan, 2016 [facility] [address] [place] [id number] [place] [address] 54101- 3856 Jan, [facility] [address] 03332- 8318 Jan, [facility] [address] [place] [id number] [place] [address] 98345- 4042 Jan, [facility] [address] [place] [id number] [place] [address] 83820- 5135 Dec, Diabetes E11.9 ; Hypoxia R09.02 and Back pain M54.9 [facility] [address] [place] [id number] [place] [address] 38065- 8224 Dec, [facility] [address] [place] [id number] [place] [address] 93500- 7990 Nov, [facility] [address] [place] [id number] [place] [address] 34355- 9802 Oct, Anxiety F41.9 [facility] [address] [place] [id number] [place] [address] 21495- 2461 Oct, Back pain M54.9 [facility] [address] [place] [id number] [place] [address] 28564- 8852 September, Back pain M54.9 [facility] [id number] [place] [address] 30819- 5526 September, Diabetes E11.9 [facility] [address] [place] [id number] [place] [address] 17235- 5664 September, [facility] [address] [place] [id number] [place] [address] 04656- 9462 September, Diabetes E11.9 ; Insulin long-term use Z79.4 and Back pain M54.9 [facility] [address] [place] [id number] [place] [address] 90438- 3837 Aug, Back pain M54.9 [facility] [address] [place] [id number] [place] [address] 32036- 8687 Aug, Back pain M54.9 ; Anxiety F41.9 and Arthropathy, unspecified M12.9 [facility] [address] [place] [id number] [place] [address] 21494- 6502 Jul, Back pain M54.9 [facility] [address] [place] [id number] [place] [address] 01450- 8878 Jul, Anxiety F41.9 [facility] [address] [place] [id number] [place] [address] 66822- 1296 Jul, Back pain M54.9 [facility] [address] [place] [id number] [place] [address] 93842- 9564 Jul, [facility] [address] [place] [id number] [place] [address] 00562- 8375 Jul, [facility] [address] [place] [id number] [place] [address] 89153- 8333 May, Back pain M54.9 ; Diabetes E11.9 ; Insulin long-term use Z79.4 ; COPD (chronic obstructive pulmonary disease) J44.9 and Hypertension I10 [facility] [address] [place] [id number] [place] [address] 63639- 9025 May, Chronic pain G89.29 [facility] [address] [address]- 1621 Apr, [facility] [address] [place] [id number] [place] [address] 86386- 6012 Apr, [facility] [address] [place] [id number] [place] [address] 52076- 8956 Mar, [facility] [address] [place] [id number] [place] [address] 19503- 3046 Mar, Encounter for immunization Z23 and Diabetes E11.9 [facility] [address] [place] [id number] [place] [address] 06056- 6211 Feb, [facility] [address] [place] [id number] [place] [address] 82370- 9857 Feb, [facility] [address] [place] [id number] [place] [address] 06946- 3575 Jan, [facility] [address] [place] [id number] [place] [address] 99577- 0019 Jan, [facility] [address] [place] [id number] [place] [address] 31547- 7661 Dec, [facility] [address] [address]- 2707 Dec, [facility] [id number] [place] [address] 17064- 5597 Dec, Unspecified arthropathy, site unspecified 716.90 and Diabetes mellitus type 2, uncontrolled 250.02 [facility] [address] [address]- 8931 Dec, [facility] [address] [place] [id number] [place] [address] 60108- 6409 Nov, [facility] [address] [address]- 6219 Oct, [facility] [address] [place] [address] [address]- 9114 September, [facility] [place] [facility] [address] [id number] [place] [address]- 4382 September, [facility] [place] [facility] [address] [id number] [place] [address]- 1170 September, [facility] [place] [facility] [address] [id number] [place] [address]- 3315 September, [facility] [place] [facility] [address] [id number] [place] [address]- 9984 14 Aug, 2014 [facility] [place] [facility] [address] [id number] [place] [address]- 4352 13 Aug, 2014 [facility] [place] [facility] [address] [id number] [place] [address]- 7687 18 Jul, 2014 [facility] [place] [facility] [address] [id number] [place] [address]- 7077 18 Jul, 2014 [facility] [place] [facility] [address] [id number] [place] [address]- 4898 16 Jul, 2014 [facility] [place] [facility] [address] [id number] [place] [address]- 5560 16 Jul, 2014 [facility] [place] [facility] [address] [id number] [place] [address]- 8738 16 Jul, 2014 [facility] [place] [facility] [address] [id number] [place] [address]- 1113 16 Jul, 2014 [facility] [place] [facility] [address] [id number] [place] [address]- 8347 16 Jul, 2014 [facility] [place] [facility] [address] [id number] [place] [address]- 2644 16 Jul, 2014 [facility] [place] [facility] [address] [id number] [place] [address]- 0042 16 Jul, 2014 [facility] [place] [facility] [address] [id number] [place] [address]- 8458 13 Jul, 2014 [facility] [place] [facility] [address] [id number] [place] [address]- 9258 Jul, 2014 [facility] [place] [facility] [address] [id number] [place] [address]- 0403 Jul, 2014 [facility] [place] [facility] [address] [id number] [place] [address]- 9957 Jul, 2014 [facility] [place] [facility] [address] [id number] [place] [address]- 0921 17 Jul, 2014 [facility] [place] [facility] [address] [id number] [place] [address]- 7810 17 Jul, 2014 [facility] [place] [facility] [address] [id number] [place] [address]- 5851 16 Jul, 2014 [facility] [place] [facility] [address] [id number] [place] [address]- 3102 16 Jul, 2014 [facility] [place] [facility] [address] [id number] [place] [address]- 6128 16 Jul, 2014 [facility] [place] [facility] [address] [id number] [place] [address]- 2977 16 Jul, 2014 [facility] [place] [facility] [address] [id number] [place] [address]- 9385 16 Jul, 2014 [facility] [place] [facility] [address] [id number] [place] [address]- 5758 16 Jul, 2014 [facility] [place] [facility] [address] [id number] [place] [address]- 2924 16 Jul, 2014 [facility] [place] [facility] [address] [id number] [place] [address]- 9611 16 Jul, 2014 [facility] [place] [facility] [address] [id number] [place] [address]- 0082 16 Jul, 2014 [facility] [place] [facility] [address] [id number] [place] [address]- 5394 16 Jul, 2014 [facility] [place] [facility] [address] [id number] [place] [address]- 5496 16 Jul, 2014 [facility] [place] [facility] [address] [id number] [place] [address]- 9026 Jul, 2014 [facility] [place] [facility] [address] [id number] [place] [address]- 8056 Jul, 2014 [facility] [place] [facility] [address] [id number] [place] [address]- 5208 Jul, [facility] [place] [facility] [address] [id number] [place] [address]- 2053 May, [facility] [place] [facility] [address] [id number] [place] [address]- 2451 May, [facility] [place] [facility] [address] [id number] [place] [address]- 3265 May, [facility] [place] [facility] [address] [id number] [place] [address]- 6545 May, [facility] [place] [facility] [address] [id number] [place] [address]- 3918 May, [facility] [place] [facility] [address] [id number] [place] [address]- 1019 May, [facility] [place] [facility] [address] [id number] [place] [address]- 7565 May, [facility] [place] [facility] [address] [id number] [place] [address]- 5541 May, [facility] [place] [facility] [address] [id number] [place] [address]- 8199 May, [facility] [place] [facility] [address] [id number] [place] [address]- 3800 May, [facility] [place] [facility] [address] [id number] [place] [address]- 1367 Apr, [facility] [place] [facility] [address] [id number] [place] [address]- 9004 Apr, [facility] [place] [facility] [address] [id number] [place] [address]- 7236 Apr, [facility] [place] [facility] [address] [id number] [place] [address] Apr, [facility] [place] [facility] [address] [facility][NOTE 3] [id number] [place] [address] Apr, [facility] [place] [facility] [address] [id number] [place] [address] Apr, [facility] [place] [facility] [address] [id number] [place] [address] Mar, [facility] [place] [facility] [address] [id number] [place] [address] Mar, [facility] [place] [facility] [address] [id number] [place] [address] Mar, [facility] [place] [facility] [address] [id number] [address] Mar, [facility] [place] [facility] [address] [id number] [place] [address] Mar, [facility] [place] [facility] [address] [id number] [place] [address] Mar, [facility] [place] [facility] [address] [id number] [place] [address] Mar, [facility] [place] [facility] [address] [id number] [place] [address] Mar, [facility] [place] [facility] [address] [id number] [place] [address] Mar, [facility] [place] [facility] [address] [id number] [place] [address] Mar, [facility] [place] [facility] [address] [id number] [place] [address] Mar, [facility] [place] [facility] [address] [id number] [place] [address] 30 Feb, 2014 [facility] [place] [facility] [address] [id number] [place] [address] 30 Feb, 2014 [facility] [place] [facility] [address] [id number] [place] [address]36 Feb, [facility] [place] [facility] [address] [id number] [place] [address] Feb, [facility] [place] [facility] [address] [id number] [place] [address] Feb, [facility] [place] [facility] [address] [id number] [place] [address] Feb, [facility] [place] [facility] [address] [id number] [place] [address] Feb, [facility] [place] [facility] [address] [id number] [place] [address] Feb, [facility] [place] [facility] [address] [id number] [place] [address] Feb, [facility] [place] [facility] [address] [id number] [place] [address] Feb, [facility] [place] [facility] [address] [id number] [place] [address] 22 Jan, 2014 [facility] [place] [facility] [address] [id number] [place] [address] 22 Jan, 2013 [facility] [place] [facility] [address] [id number] [place] [address] 16 Jan, 2013 [facility] [place] [facility] [address] [id number] [place] [address] 16 Sep, 2013 [facility] [place] [facility] [address] [id number] [place] [address]- [address] 12 Jan, 2013 [facility] [place] [facility] [address] [id number] [place] [address] Jan, [facility] [place] [facility] [address] [id number] [place] [address] Jan, [facility] [place] [facility] [address] [id number] [place] [address] Dec, [facility] [place] [facility] [address] [id number] [place] [address] Dec, [facility] [place] [facility] [address] [id number] [place] [address] Dec, [facility] [place] [facility] [address] [id number] [place] [address] Dec, [facility] [place] [facility] [address] [id number] [place] [address] Dec, [facility] [place] [facility] [address] [id number] [place] [address] Dec, [facility] [place] [facility] [address] [id number] [place] [address] Dec, [facility] [place] [facility] [address] [id number] [place] [address] Dec, [facility] [place] [facility] [address] [id number] [place] [address] Oct, [facility] [place] [facility] [address] [id number] [place] [address] Oct, [facility] [place] [facility] [address] [id number] [place] [address] September, [facility] [place] [facility] [address] [id number] [place] [address]- [address]96 September, [facility] [place] [facility] [address] [id number] [place] [address]- [address] September, [facility] [place] [facility] [address] [id number] [place] [address] September, [facility] [place] [facility] [address] [id number] [place] [address] September, [facility] [place] [facility] [address] [id number] [place] [address] September, [facility] [place] [facility] [address] [id number] [place] [address] September, [facility] [place] [facility] [address] [id number] [place] [address] Aug, [facility] [place] [facility] [address] [id number] [place] [address] Aug, [facility] [place] [facility] [address] [id number] [place] [address] Jul, [facility] [place] [facility] [address] [id number] [place] [address] 24 Jul, 2013 [facility] [place] [facility] [address] [id number] [place] [address] Jul, [facility] [place] [facility] [address] [id number] [place] [address] Jul, [facility] [place] [facility] [address] [id number] [place] [address] 14 Jul, 2013 [facility] [place] [facility] [address] [id number] [place] [address] 14 Jul, 2013 [facility] [place] [facility] [address] [id number] [place] [address] Jul, [facility] [place] [facility] [address] [id number] [place] [address] Jul, [facility] [place] [facility] [address] [id number] [place] [address] May, [facility] [place] [facility] [address] [id number] [place] [address] 9465 May, [facility] [place] [facility] [address] [id number] [place] [address] May, [facility] [place] [facility] [address] [id number] [place] [address] 14 May, 2013 [facility] [place] [facility] [address] [id number] [place] [address] 18 Apr, 2013 [facility] [place] [facility] [address] [id number] [place] [address] 90[address] Mar, [facility] [place] [facility] [address] [id number] [place] [address] Mar, [facility] [place] [facility] [address] [id number] [place] [address] Mar, [facility] [place] [facility] [address] [id number] [place] [address] 69[address] Mar, [facility] [place] [facility] [address] [id number] [place] [address] 47[address] Mar, [facility] [place] [facility] [address] [id number] [place] [address] Mar, [facility] [place] [facility] [address] [id number] [place] [address] Mar, [facility] [place] [facility] [address] [id number] [place] [address] 18 Mar, 2013 [facility] [place] [facility] [address] [id number] [place] [address]- 59[address] Mar, [facility] [place] [facility] [address] [id number] [place] [address] Mar, [facility] [place] [facility] [address] [id number] [place] [address]- 117[address] Mar, [facility] [place] [facility] [address] [id number] [place] [address]- 3[address] 04 Mar, 2013 [facility] [place] [facility] [address] [id number] [place] [address] 15 Feb, 2013 [facility] [place] [facility] [address] [id number] [place] [address] 59[address] Feb, [facility] [place] [facility] [address] [id number] [place] [address] Feb, [facility] [place] [facility] [address] [id number] [place] [address]- 0925 Feb, [facility] [place] [facility] [address] [id number] [place] [address] 35[address] Feb, [facility] [place] [facility] [address] [id number] [place] [address] Jan, [facility] [place] [facility] [address] [id number] [place] [address] Dec, [facility] [place] [facility] [address] [id number] [place] [address]- 8252 Dec, [facility] [place] [facility] [address] [id number] [place] [address] 6613 Dec, [facility] [place] [facility] [address] [id number] [place] [address] 4733 Nov, [facility] [place] [facility] [address] [id number] [place] [address]- 3475 Nov, [facility] [place] [facility] [address] [id number] [place] [address]- 5148 Nov, [facility] [place] [facility] [address] [id number] [place] [address] 1671 Oct, [facility] [place] [facility] [address] [id number] [place] [address] 7332 Oct, [facility] [place] [facility] [address] [id number] [place] [address]- 0427 Oct, [facility] [place] [facility] [address] [id number] [place] [address] September, [facility] [place] [facility] [address] [id number] [place] [address]- 9643 September, [facility] [place] [facility] [address] [id number] [place] [address]34 14 Sep, 2012 [facility] [address] [id number] [place] [address] September, [facility] [address] [id number] [place] [address] September, [facility] [address] [id number] [place] [address] 7[address] Aug, [facility] [address] [id number] [place] [address] 8827 Aug, [facility] [address] [id number] [place] [address] 1628 Aug, [facility] [address] [id number] [place] [address] 6867 Jul, [facility] [address] [id number] [place] [address] Jul, [facility] [address] [id number] [place] [address]- 0970 Jul, [facility] [address] [id number] [place] [address]- 6234 Jul, [facility] [address] [id number] [place] [address]- 4728 Jul, [facility] [address] [id number] [place] [address]- 3524 Jul, [facility] [address] [id number] [place] [address]- 0182 Jul, [facility] [address] [id number] [place] [address]- 7126 May, [facility] [address] [id number] [place] [address]- 2546 May, [facility] [address] [id number] [place] [address]- 9350 May, [facility] [place] [facility] [address] [id number] [place] [address] 2004 Apr, [facility] [place] [facility] [address] [id number] [place] [address]- 2640 Apr, [facility] [place] [facility] [address] [id number] [place] [address]- 9565 Apr, [facility] [place] [facility] [address] [id number] [place] [address] 7318 Apr, [facility] [place] [facility] [address] [id number] [place] [address]- 7604 Apr, [facility] [place] [facility] [address] [id number] [place] [address]- 8493 Mar, [facility] [place] [facility] [address] [id number] [place] [address]- 8881 Mar, [facility] [place] [facility] [address] [id number] [place] [address] 0753 Mar, [facility] [place] [facility] [address] [id number] [place] [address]- 9962 Mar, [facility] [place] [facility] [address] [id number] [place] [address]- 9726 Feb, [facility] [place] [facility] [address] [id number] [place] [address]- 5879 Feb, [facility] [place] [facility] [address] [id number] [place] [address]- 2411 Feb, [facility] [place] [facility] [address] [id number] [place] [address]- 6155 Feb, [facility] [place] [facility] [address] [id number] [place] [address]- 8305 Feb, [facility] [place] [facility] [address] [facility] [id number] [place] [address]- 2541 Jan, [facility] [place] [facility] [address] [id number] [place] [address]- 9974 Dec, [facility] [place] [facility] [address] [id number] [place] [address]- 6471 Dec, [facility] [place] [facility] [address] [id number] [place] [address]- 8924 Dec, [facility] [place] [facility] [address] [id number] [place] [address]- 2784 Nov, [facility] [place] [facility] [address] [id number] [place] [address]- 2127 Nov, [facility] [place] [facility] [address] [id number] [place] [address]- 6523 Nov, [facility] [place] [facility] [address] [id number] [place] [address]- 5657 Oct, [facility] [place] [facility] [address] [id number] [place] [address]- 6752 Oct, [facility] [place] [facility] [address] [id number] [place] [address]- 5418 Oct, [facility] [place] [facility] [address] [id number] [place] [address]- 1348 Oct, [facility] [place] [facility] [address] [id number] [place] [address]- 5943 September, [facility] [place] [facility] [address] [id number] [place] [address]- 1342 September, [facility] [place] [facility] [address] [id number] [place] [address]- 9700 30 Aug, 2011 [facility] [place] [facility] [address] [id number] [place] [address]- 6335 23 Aug, 2011 [facility] [place] [facility] [address] [id number] [place] [address]- 6712 Aug, [facility] [place] [facility] [address] [id number] [place] [address]- 6054 Aug, [facility] [place] [facility] [address] [id number] [place] [address]- 1406 Aug, [facility] [place] [facility] [address] [id number] [place] [address]- 8872 Aug, [facility] [place] [facility] [address] [id number] [place] [address]- 4546 Aug, [facility] [place] [facility] [address] [id number] [place] [address]- 8045 Jul, [facility] [place] [facility] [address] [id number] [place] [address]- 7444 Jul, [facility] [place] [facility] [address] [id number] [place] [address]- 3484 Jul, [facility] [place] [facility] [address] [id number] [place] [address]- 8847 May, [facility] [address] [id number] [place] [address]- 6757 May, [facility] [place] [facility] [address] [id number] [place] [address]- 2426 May, [facility] [address] [id number] [place] [address]- 9786 Apr, [facility] [place] [facility] [address] [id number] [place] [address]- 6723 Apr, [facility] [place] [facility] [address] [id number] [place] [address]- 6754 Mar, [facility] [place] [facility] [address] [id number] [place] [address]- 1827 Mar, [facility] [place] [facility] [address] [id number] [place] [address]- 4795 Mar, [facility] [place] [facility] [address] [id number] [place] [address]- 1707 Mar, [facility] [place] [facility] [address] [id number] [place] [address] 2546 Mar, [facility] [address] [facility] [id number] [place] [address]- 2546 Mar, [facility] [address] [facility]] [id number] [place] [address]- 2546 Feb, [facility] [address] [facility]] [id number] [place] [address]- 2546 Feb, [facility] [address] [facility]] [id number] [place] [address]- 2546 Feb, IMMUNIZATIONS No Known Immunizations SOCIAL HISTORY Never Assessed REASON FOR VISIT lyrica 09/17/2017 PLAN OF CARE VITAL SIGNS MEDICATIONS Medication [...]
--- OUTSIDE RECORDS SUMMARY | 2018-05-16 07:01 | XMS REPORT ---
Author Author FERNY SILVERIO Organization [facility] Address [address] [place] [address] Care Team Providers Care Clinic Physician Director Name Role Phone FERNY SILVERIO Unavailable PROBLEMS Type Condition ICD9-CM Code XAA89-LK Code Onset Dates Condition Status SNOMED Code Problem Hypoxia R09.02 Active 038699306 Problem Port catheter in place Z95.828 Active 346415525 Problem Anxiety F41.9 Active 71509944 Problem Type 2 diabetes mellitus with diabetic peripheral angiopathy without gangrene E11.51 Active 396208494 Problem Pressure ulcer of other site, stage 3 L89.893 Active 737581337 Problem Lumbar radiculopathy, chronic M54.16 Active 661020885 Problem PAD (peripheral artery disease) I73.9 Active 319792515 Problem 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 196608020 Problem Recurrent major depressive disorder, in full remission F33.42 Active 036813351 Problem Diabetes E11.9 Active 36375388 Problem Hypertension I10 Active 19794651 Problem Back pain M54.9 Active 250937155 Problem Insulin long-term use Z79.4 Active 551294455 Problem COPD (chronic obstructive pulmonary disease) J44.9 Active 93655606 ALLERGIES No Information ENCOUNTERS Encounter Location Date Diagnosis [place] [id number] [place] [address] 61390- 6846 Nov, Back pain M54.9 and Anxiety F41.9 [facility] [id number] [place] [address] 40917- 6764 Oct, [place] [address] [place] [id number] [place] [address] 13827- 5252 Oct, Back pain M54.9 and Anxiety F41.9 [place] [address] [place] [id number] [place] [address] 68857- 0854 September, Anxiety F41.9 and Back pain M54.9 [place] [address] [place] [id number] [place] [address] 95798- 4544 September, Diabetes E11.9 ; Hypertension I10 ; COPD (chronic obstructive pulmonary disease) J44.9 and Lumbar radiculopathy, chronic M54.16 [place] [address] [place] [id number] [place] [address] 12901- 7389 September, Anxiety F41.9 [place] [address] 49616- 2263 Aug, [place] [address] 71652- 0224 Aug, [place] [address] 96788- 9194 Aug, Anxiety F41.9 and Back pain M54.9 [place] [address] [place] [id number] [place] [address] 01669- 7780 Aug, Medicare annual wellness visit, initial Z00.00 ; COPD ( chronic obstructive pulmonary disease) J44.9 ; PAD (peripheral artery disease) I73.9 ; Insulin long-term use Z79.4 ; Hypertension I10 ; Anxiety F41.9 ; Recurrent major depressive disorder, in full remission F33.42 ; Pressure ulcer of other site, stage 3 L89.893 ; Type 2 diabetes mellitus with diabetic peripheral angiopathy without gangrene E11.51 and 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 [place] [id number] [place] [address] 75536- 9805 Jul, Back pain M54.9 [place] [address] 32771- 1845 Jul, [place] [address] [place] [id number] [place] [address] 91251- 7299 Jul, Anxiety F41.9 and Back pain M54.9 [place] [address] [place] [id number] [place] [address] 32297- 7545 Jul, Diabetes E11.9 [facility] [address] [place] [id number] [place] [address] 57411- 2970 May, [facility] [address] [place] [address] [id number] [place] [address] 19343- 6142 May, Diabetes E11.9 ; Anxiety F41.9 ; Back pain M54.9 and COPD ( chronic obstructive pulmonary disease) J44.9 [facility] [address] [place] [id number] [place] [address] 58292- 4103 May, Back pain M54.9 [facility] [address] 14647- 9097 May, [facility] [address] [place] [id number] [place] [address] 06942- 2597 Apr, Back pain M54.9 [facility] [address] [place] [id number] [place] [address] 73039- 9383 Mar, Back pain M54.9 [facility] [address] [place] [id number] [place] [address] 27129- 5953 Mar, [facility] [address] [place] [id number] [place] [address] 59357- 5204 16 Mar, 2017 [facility] [address] [place] [id number] [place] [address] 65901- 7662 14 Mar, 2017 Radiculopathy of lumbar region M54.16 [facility] [address] [place] [id number] [place] [address] 20673- 6340 13 Mar, 2017 [facility] [address] [place] [id number] [place] [address] 21003- 5417 07 Mar, 2017 Encounter for immunization Z23 and Lumbar radiculopathy, chronic M54.16 [facility] [address] [place] [address] [id number] [place] [address] 03170- 1748 Mar, Back pain M54.9 and Anxiety F41.9 [facility] [address] [address] 10 Feb, 2017 Acute bilateral low back pain with left-sided sciatica M54.42 and Acute bilateral low back pain with right-sided sciatica M54.41 [facility] [address] [id number] [place] [address] 24402- 4853 Feb, [facility] [address] [place] [id number] [place] [address] 45379- 7916 Feb, Back pain M54.9 [facility] [address] [place] [id number] [place] [address] 62132- 8002 05 Jan, 2017 Back pain M54.9 and Anxiety F41.9 [facility] [address] [place] [id number] [place] [address] 72604- 8113 05 Jan, 2017 Diabetes E11.9 [facility] [address] [place] [id number] [place] [address] 88104- 7825 Dec, Diabetes E11.9 ; Back pain M54.9 ; Anxiety F41.9 and Insulin long-term use Z79.4 [facility] [address] [place] [id number] [place] [address] 89219- 1221 Dec, Anxiety F41.9 [facility] [address] [place] [id number] [place] [address] 10315- 4858 Dec, Back pain M54.9 [facility] [address] [place] [id number] [place] [address] 46459- 5235 Nov, Back pain M54.9 [facility] [address] [place] [id number] [place] [address] 75410- 0437 Oct, Back pain M54.9 and Anxiety F41.9 [facility] [address] [place] [id number] [place] [address] 83393- 3613 September, Back pain M54.9 [facility] [address] [place] [id number] [place] [address] 34765- 8490 September, Back pain M54.9 and Anxiety F41.9 [facility] [address] [place] [id number] [place] [address] 16233- 2080 Aug, Diabetes E11.9 ; Anxiety F41.9 ; Back pain M54.9 and PAD ( peripheral artery disease) I73.9 [facility] [address] [place] [id number] [place] [address] 79810- 1236 19 Aug, 2016 Anxiety F41.9 [facility] [address] 39013- 5338 14 Aug, 2016 Back pain M54.9 [facility] [address] 91944- 8266 Jul, Back pain M54.9 [facility] [address] [place] [id number] [place] [address] 15199- 0766 Jul, Back pain M54.9 [facility] [address] 22239- 0446 Jul, Back pain M54.9 [facility] [address] 34786- 8428 16 Jul, 2016 Dorsalgia M54.9 [facility] [address] [place] [id number] [place] [address] 91316- 3544 14 Jul, 2016 [facility] [address] [place] [id number] [place] [address] 85263- 4739 May, Back pain M54.9 [facility] [address] [place] [id number] [place] [address] 83974- 3501 May, Diabetes E11.9 ; Anxiety F41.9 ; Port catheter in place Z95.828 ; Encounter for immunization Z23 and Insulin long-term use Z79.4 [facility] [address] [place] [id number] [place] [address] 81475- 0543 Apr, Back pain M54.9 [facility] [address] 16269- 5125 Apr, Back pain M54.9 [facility] [address] [place] [id number] [place] [address] 28725- 9168 Apr, [facility] [address] [place] [id number] [place] [address] 13389- 6749 Apr, Back pain M54.9 [facility] [address] [place] [id number] [place] [address] 96703- 3360 Mar, COPD (chronic obstructive pulmonary disease) J44.9 [facility] [address] [place] [id number] [place] [address] 34558- 9317 Feb, [facility] [address] [place] [id number] [place] [address] 24507- 1812 30 Jan, 2016 [facility] [address] [place] [id number] [place] [address] 16719- 8273 Jan, [facility] [address] 78046- 4335 Jan, [facility] [address] [place] [id number] [place] [address] 54206- 9088 Jan, [facility] [address] [place] [id number] [place] [address] 45164- 9444 Dec, Diabetes E11.9 ; Hypoxia R09.02 and Back pain M54.9 [facility] [address] [place] [id number] [place] [address] 19529- 1362 Dec, [facility] [address] [place] [id number] [place] [address] 40557- 6596 Nov, [facility] [address] [place] [id number] [place] [address] 57363- 3955 Oct, Anxiety F41.9 [facility] [address] [place] [id number] [place] [address] 47728- 0034 Oct, Back pain M54.9 [facility] [address] [place] [id number] [place] [address] 51661- 6442 September, Back pain M54.9 [facility] [id number] [place] [address] 47914- 0620 September, Diabetes E11.9 [facility] [address] [place] [id number] [place] [address] 40332- 9028 September, [facility] [address] [place] [address] [id number] [place] [address] 34824- 0377 September, Diabetes E11.9 ; Insulin long-term use Z79.4 and Back pain M54.9 [facility] [address] [place] [id number] [place] [address] 30128- 5583 Aug, Back pain M54.9 [facility] [address] [place] [id number] [place] [address] 03629- 1400 Aug, Back pain M54.9 ; Anxiety F41.9 and Arthropathy, unspecified M12.9 [facility] [address] [place] [id number] [place] [address] 93565- 2020 Jul, Back pain M54.9 [facility] [address] [place] [id number] [place] [address] 74388- 2899 Jul, Anxiety F41.9 [facility] [address] [place] [id number] [place] [address] 83585- 7496 Jul, Back pain M54.9 [facility] [address] [id number] [place] [address] 51887- 8051 Jul, [facility] [address] [id number] [place] [address] 85590- 5574 Jul, [facility] [address] [place] [id number] [place] [address] 63171- 3732 May, Back pain M54.9 ; Diabetes E11.9 ; Insulin long-term use Z79.4 ; COPD (chronic obstructive pulmonary disease) J44.9 and Hypertension I10 [facility] [address] [place] [id number] [place] [address] 04667- 2881 May, Chronic pain G89.29 [facility] [address] [address]- 0706 Apr, [facility] [address] [id number] [place] [address] 57277- 1896 Apr, [facility] [address] [id number] [place] [address] 36256- 3844 Mar, [facility] [address] [id number] [place] [address] 25748- 6955 Mar, Encounter for immunization Z23 and Diabetes E11.9 [facility] [address] [place] [id number] [place] [address] 37280- 8906 Feb, [facility] [address] [id number] [place] [address] 73528- 8520 Feb, [facility] [address] [id number] [place] [address] 54451- 3221 Jan, [facility] [address] [place] [id number] [place] [address] 56601- 0772 Jan, [facility] [address] [place] [id number] [place] [address] 04521- 9259 Dec, [facility] [address] [address]- 1835 Dec, [facility] [id number] [place] [address] 39701- 7683 Dec, Unspecified arthropathy, site unspecified 716.90 and Diabetes mellitus type 2, uncontrolled 250.02 [facility] [address] [address]- 1971 Dec, [facility] [address] [place] [id number] [place] [address] 61003- 9294 Nov, [facility] [address] [address]- 8101 Oct, [facility] [address] [place] [address] [place] [address]- 9320 September, [facility] [place] [facility] [address] [id number] [place] [address]- 0433 September, [facility] [place] [facility] [address] [id number] [place] [address]- 5645 September, [facility] [place] [facility] [address] [id number] [place] [address]- 8587 September, [facility] [place] [facility] [address] [id number] [place] [address]- 6348 14 Aug, 2014 [facility] [place] [facility] [address] [id number] [place] [address]- 9514 13 Aug, 2014 [facility] [place] [facility] [address] [id number] [place] [address]- 0026 18 Jul, 2014 [facility] [place] [facility] [address] [id number] [place] [address]- 1360 18 Jul, 2014 [facility] [place] [facility] [address] [id number] [place] [address]- 1165 16 Jul, 2014 [facility] [place] [facility] [address] [id number] [place] [address]- 8795 16 Jul, 2014 [facility] [place] [facility] [address] [id number] [place] [address]- 3102 16 Jul, 2014 [facility] [place] [facility] [address] [id number] [place] [address]- 2656 16 Jul, 2014 [facility] [place] [facility] [address] [id number] [place] [address]- 9049 16 Jul, 2014 [facility] [place] [facility] [address] [id number] [place] [address]- 9866 16 Jul, 2014 [facility] [place] [facility] [address] [id number] [place] [address]- 9942 16 Jul, 2014 [facility] [place] [facility] [address] [id number] [place] [address]- 4072 13 Jul, 2014 [facility] [place] [facility] [address] [id number] [place] [address]- 0903 Jul, 2014 [facility] [place] [facility] [address] [id number] [place] [address]- 8629 Jul, 2014 [facility] [place] [facility] [address] [id number] [place] [address]- 8105 Jul, 2014 [facility] [place] [facility] [address] [id number] [place] [address]- 8113 17 Jul, 2014 [facility] [place] [facility] [address] [id number] [place] [address]- 9351 17 Jul, 2014 [facility] [place] [facility] [address] [id number] [place] [address]- 3932 16 Jul, 2014 [facility] [place] [facility] [address] [id number] [place] [address]- 4736 16 Jul, 2014 [facility] [place] [facility] [address] [id number] [place] [address]- 7041 16 Jul, 2014 [facility] [place] [facility] [address] [id number] [place] [address]- 2740 16 Jul, 2014 [facility] [place] [facility] [address] [id number] [place] [address]- 1817 16 Jul, 2014 [facility] [place] [facility] [address] [id number] [place] [address]- 4294 16 Jul, 2014 [facility] [place] [facility] [address] [id number] [place] [address]- 4879 16 Jul, 2014 [facility] [place] [facility] [address] [id number] [place] [address]- 4275 16 Jul, 2014 [facility] [place] [facility] [address] [id number] [place] [address]- 7123 16 Jul, 2014 [facility] [place] [facility] [address] [id number] [place] [address]- 2176 16 Jul, 2014 [facility] [place] [facility] [address] [id number] [place] [address]- 8820 16 Jul, 2014 [facility] [place] [facility] [address] [id number] [place] [address]- 2395 Jul, 2014 [facility] [place] [facility] [address] [id number] [place] [address]- 1276 Jul, 2014 [facility] [place] [facility] [address] [id number] [place] [address]- 0258 Jul, [facility] [place] [facility] [address] [id number] [place] [address]- 0828 May, [facility] [place] [facility] [address] [id number] [place] [address]- 2271 May, [facility] [place] [facility] [address] [id number] [place] [address]- 8014 May, [facility] [place] [facility] [address] [id number] [place] [address]- 0988 May, [facility] [place] [facility] [address] [id number] [place] [address]- 3352 May, [facility] [place] [facility] [address] [id number] [place] [address]- 2748 May, [facility] [place] [facility] [address] [id number] [place] [address]- 2610 May, [facility] [place] [facility] [address] [id number] [place] [address]- 5476 May, [facility] [place] [facility] [address] [id number] [place] [address]- 0543 May, [facility] [place] [facility] [address] [id number] [place] [address]- 4227 May, [facility] [place] [facility] [address] [id number] [place] [address]- 1620 Apr, [facility] [place] [facility] [address] [id number] [place] [address]- 2034 Apr, [facility] [place] [facility] [address] [id number] [place] [address]- 9386 Apr, [facility] [place] [facility] [address] [id number] [place] [address]- 1888 Apr, [facility] [place] [facility] [address] [facility] [id number] [place] 6104 Apr, [facility] [place] [facility] [address] [id number] [place] [address]- 6093 Apr, [facility] [place] [facility] [address] [id number] [place] [address]- 7892 Mar, [facility] [place] [facility] [address] [id number] [place] [address]- 8588 Mar, [facility] [place] [facility] [address] [id number] [place] [address]- 2136 Mar, [facility] [place] [facility] [address] [id number] [place] [address]- 9254 Mar, [facility] [place] [facility] [address] [id number] [place] [address]- 5058 Mar, [facility] [place] [facility] [address] [id number] [place] [address]- 3296 Mar, [facility] [place] [facility] [address] [id number] [place] [address]- 9178 Mar, [facility] [place] [facility] [address] [id number] [place] [address]- 7339 Mar, [facility] [place] [facility] [address] [id number] [place] [address]- 8693 Mar, [facility] [place] [facility] [address] [id number] [place] [address]- 7678 Mar, [facility] [place] [facility] [address] [id number] [place] [address]- 6401 Mar, [facility] [place] [facility] [address] [id number] [place] [address]- 4961 30 Feb, 2014 [facility] [place] [facility] [address] [id number] [place] [address]- 4686 30 Feb, 2014 [facility] [place] [facility] [address] [id number] [place] [address]- 4406 Feb, [facility] [place] [facility] [address] [id number] [place] [address]- 8004 Feb, [facility] [place] [facility] [address] [id number] [place] [address]- 1130 Feb, [facility] [place] [facility] [address] [id number] [place] [address]- 3910 Feb, [facility] [place] [facility] [address] [id number] [place] [address]- 3834 Feb, [facility] [place] [facility] [address] [id number] [place] [address]- 3974 Feb, [facility] [place] [facility] [address] [id number] [place] [address]- 5113 Feb, [facility] [place] [facility] [address] [id number] [place] [address]- 9419 Feb, [facility] [place] [facility] [address] [id number] [place] [address]- 1838 22 Jan, 2014 [facility] [place] [facility] [address] [id number] [place] [address]- 2542 22 Jan, 2013 [facility] [place] [facility] [address] [id number] [place] [address]- 2544 16 Jan, 2013 [facility] [place] [facility] [address] [id number] [place] [address] 2543 16 Sep, 2013 [facility] [place] [facility] [address] [id number] [place] [address]- 2541 12 Jan, 2013 [facility] [place] [facility] [address] [id number] [place] [address]- 4492 Jan, [facility] [place] [facility] [address] [id number] [place] [address] Jan, [facility] [place] [facility] [address] [id number] [place] [address] Dec, [facility] [place] [facility] [address] [id number] [place] [address] Dec, [facility] [place] [facility] [address] [id number] [place] [address] Dec, [facility] [place] [facility] [address] [id number] [place] [address] Dec, [facility] [place] [facility] [address] [id number] [place] [address] Dec, [facility] [place] [facility] [address] [id number] [place] [address] Dec, [facility] [place] [facility] [address] [id number] [place] [address] Dec, [facility] [place] [facility] [address] [id number] [place] [address] Dec, [facility] [place] [facility] [address] [id number] [place] [address] Oct, [facility] [place] [facility] [address] [id number] [place] [address] Oct, [facility] [place] [facility] [address] [id number] [place] [address] September, [facility] [place] [facility] [address] [id number] [place] [address] September, [facility] [place] [facility] [address] [id number] [place] [address] September, [facility] [place] [facility] [address] [id number] [place] [address] September, [facility] [place] [facility] [address] [id number] [place] [address] September, [facility] [place] [facility] [address] [id number] [place] [address] September, [facility] [place] [facility] [address] [id number] [place] [address] September, [facility] [place] [facility] [address] [id number] [place] [address] Aug, [facility] [place] [facility] [address] [id number] [place] [address] Aug, [facility] [place] [facility] [address] [id number] [place] [address] Jul, [facility] [place] [facility] [address] [id number] [place] [address] 24 Jul, 2013 [facility] [place] [facility] [address] [id number] [place] [address] Jul, [facility] [place] [facility] [address] [id number] [place] [address] Jul, [facility] [place] [facility] [address] [id number] [place] [address] 14 Jul, 2013 [facility] [place] [facility] [address] [id number] [place] [address] 14 Jul, 2013 [facility] [place] [facility] [address] [id number] [place] [address] Jul, [facility] [place] [facility] [address] [id number] [place] [address] Jul, [facility] [place] [facility] [address] [id number] [place] [address] May, [facility] [place] [facility] [address] [id number] [place] [address] May, [facility] [place] [facility] [address] [id number] [place] [address] May, [facility] [place] [facility] [address] [id number] [place] [address] 14 May, 2013 [facility] [place] [facility] [address] [id number] [place] [address] 18 Apr, 2013 [facility] [place] [facility] [address] [id number] [place] [address] Mar, [facility] [place] [facility] [address] [id number] [place] [address] Mar, [facility] [place] [facility] [address] [id number] [place] [address] Mar, [facility] [place] [facility] [address] [id number] [place] [address] Mar, [facility] [place] [facility] [address] [id number] [place] [address] Mar, [facility] [place] [facility] [address] [id number] [place] [address] Mar, [facility] [place] [facility] [address] [id number] [place] [address] Mar, [facility] [place] [facility] [address] [id number] [place] [address] 18 Mar, 2013 [facility] [place] [facility] [address] [id number] [place] [address] Mar, [facility] [place] [facility] [address] [id number] [place] [address] Mar, [facility] [place] [facility] [address] [id number] [place] [address] Mar, [facility] [place] [facility] [address] [id number] [place] [address]- [address] 04 Mar, 2013 [facility] [facility] [address] [id number] [place] [address] 15 Feb, 2013 [facility] [place] [facility] [address] [id number] [place] [address] Feb, [facility] [place] [facility] [address] [id number] [place] [address] Feb, [facility] [place] [facility] [address] [id number] [place] [address] Feb, [facility] [place] [facility] [address] [id number] [place] [address] Feb, [facility] [place] [facility] [address] [id number] [place] [address] Jan, [facility] [place] [facility] [address] [id number] [place] [address] Dec, [facility] [place] [facility] [address] [id number] [place] [address] Dec, [facility] [place] [facility] [address] [id number] [place] [address] Dec, [facility] [place] [facility] [address] [id number] [place] [address] Nov, [facility] [place] [facility] [address] [id number] [place] [address] 2011 Nov, [facility] [place] [facility] [address] [id number] [place] [address] Nov, [facility] [place] [facility] [address] [id number] [place] [address] Oct, [facility] [place] [facility] [address] [id number] [place] [address] Oct, [facility] [place] [facility] [address] [id number] [place] [address] Oct, [facility] [place] [facility] [address] [id number] [place] [address] September, [facility] [place] [facility] [address] [id number] [place] [address] September, [facility] [place] [facility] [address] [id number] [place] [address] 14 Sep, 2012 [facility] [address] [id number] [place] [address] September, [facility] [address] [id number] [place] [address] September, [facility] [address] [id number] [place] [address] Aug, [facility] [address] [id number] [place] [address] Aug, [facility] [address] [id number] [place] [address] Aug, [facility] [address] [id number] [place] [address] Jul, [facility] [address] [id number] [place] [address] Jul, [facility] [address] [id number] [place] [address] Jul, [facility] [address] [id number] [place] [address] Jul, [facility] [address] [id number] [place] [address] 1991 Jul, [facility] [address] [id number] [place] [address] Jul, [facility] [address] [id number] [place] [address] Jul, [facility] [address] [id number] [place] [address] May, [facility] [address] [id number] [place] [address] May, [facility] [address] [id number] [place] [address] May, [facility] [place] [facility] [address] [id number] [place] [address] Apr, [facility] [place] [facility] [address] [id number] [place] [address] Apr, [facility] [place] [facility] [address] [id number] [place] [address]- [address] Apr, [facility] [place] [facility] [address] [id number] [place] [address]- [address] Apr, [facility] [place] [facility] [address] [id number] [place] [address] Apr, [facility] [place] [facility] [address] [id number] [place] [address] Mar, [facility] [place] [facility] [address] [id number] [place] [address] Mar, [facility] [place] [facility] [address] [id number] [place] [address] Mar, [facility] [facility] [address] [id number] [place] [address] Mar, [facility] [place] [facility] [address] [id number] [place] [address] Feb, [facility] [address] [id number] [place] [address] Feb, [facility] [place] [facility] [address] [id number] [place] [address] Feb, [facility] [place] [facility] [address] [id number] [place] [address] Feb, [facility] [facility] [address] [id number] [place] [address] 1985 Feb, [facility] [address] [facility] [id number] [place] [address] Jan, [facility] [place] [facility] [address] [id number] [place] [address] Dec, [facility] [place] [facility] [address] [id number] [place] [address]- [address] Dec, [facility] [place] [facility] [address] [id number] [place] [address]- [address] Dec, [facility] [place] [facility] [address] [id number] [place] [address] Nov, [facility] [place] [facility] [address] [id number] [place] [address]- [address] Nov, [facility] [place] [facility] [address] [id number] [place] [address] Nov, [facility] [place] [facility] [address] [id number] [place] [address] Oct, [facility] [place] [facility] [address] [id number] [place] [address] Oct, [facility] [place] [facility] [address] [id number] [place] [address]16 Oct, [facility] [place] [facility] [address] [id number] [place] [address] 365[address] Oct, [facility] [place] [facility] [address] [id number] [place] [address] September, [facility] [place] [facility] [address] [id number] [place] [address]- [address] September, [facility] [place] [facility] [address] [id number] [place] [address]- [address] 30 Aug, 2011 [facility] [address] [id number] [place] [address]- [address] 23 Aug, 2011 [facility] [place] [facility] [address] [id number] [place] [address]- [address] Aug, [facility] [place] [facility] [address] [id number] [place] [address]- 29[address] Aug, [facility] [facility] [address] [id number] [place] [address]- 75[address] Aug, [facility] [facility] [address] [id number] [place] [address]- [address] Aug, [facility] [place] [facility] [address] [id number] [place] [address]- 40[address] Aug, [facility] [place] [facility] [address] [id number] [place] [address]- 7748 Jul, [facility] [facility] [address] [id number] [place] [address]- [address] Jul, [facility] [place] [facility] [address] [id number] [place] [address]- 290[address] Jul, [facility] [facility] [address] [id number] [place] [address]- 36[address] May, [facility] [address] [id number] [place] [address]- [address] May, [facility] [place] [facility] [address] [id number] [place] [address]- 9[address] May, [facility] [address] [id number] [place] [address]- [address]60 Apr, [facility] [address] [id number] [place] [address] Apr, [facility] [place] [facility] [address] [id number] [place] [address]- [address] Mar, [facility] [place] [facility] [address] [id number] [place] [address]- [address] Mar, [facility] [place] [facility] [address] [id number] [place] [address]- [address] Mar, [facility] [address] [id number] [place] [address]- [address] Mar, [facility] [address] [id number] [place] [address] Mar, [facility] [address] [facility] [id number] [place] [address]- [address] Mar, [facility] [address] [facility] [id number] [place] [address]- [address] Feb, [facility] [address] [facility] [id number] [place] [address]- [address] Feb, [facility] [address] [facility] [id number] [place] [address] Feb, IMMUNIZATIONS No Known Immunizations SOCIAL HISTORY Never Assessed REASON FOR VISIT Soma, Morphine, Hydrocodone-09/17 PLAN OF CARE VITAL SIGNS MEDICATIONS Medication Instructions Dosage Frequency Start Date End Date Duration Status Soma 350 mg Orally Once a day 1 tablet as needed 24h Active Hydrocodone-Acetaminophen 10-325 MG Orally every 6 hrs 1 tablet as needed 6h Aug, 28 days Active MS Contin 30 MG Orally every 8 hours 1 tablet 8h Aug, 28 days Active RESULTS No Results PROCEDURES [...]
--- OUTSIDE RECORDS SUMMARY | 2018-05-16 07:02 | XMS REPORT ---
Author Author FERNY SILVERIO Organization [facility] Address [address] [place] [address] Care Team Providers Care Video Engineer Name Role Phone FERNY SILVERIO Unavailable PROBLEMS Type Condition ICD9-CM Code MBV22-XT Code Onset Dates Condition Status SNOMED Code Problem Hypoxia R09.02 Active 192231983 Problem Port catheter in place Z95.828 Active 302938075 Problem Anxiety F41.9 Active 66852815 Problem Type 2 diabetes mellitus with diabetic peripheral angiopathy without gangrene E11.51 Active 915558083 Problem Pressure ulcer of other site, stage 3 L89.893 Active 986881088 Problem Lumbar radiculopathy, chronic M54.16 Active 924335220 Problem PAD (peripheral artery disease) I73.9 Active 410810726 Problem 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 Active 381057557 Problem Recurrent major depressive disorder, in full remission F33.42 Active 355650443 Problem Diabetes E11.9 Active 25961595 Problem Hypertension I10 Active 76194559 Problem Back pain M54.9 Active 111709580 Problem Insulin long-term use Z79.4 Active 894173001 Problem COPD (chronic obstructive pulmonary disease) J44.9 Active 24478629 ALLERGIES No Information ENCOUNTERS Encounter Location Date Diagnosis [place] [id number] [place] [address] 69938- 7526 Nov, Back pain M54.9 and Anxiety F41.9 [facility] [id number] [place] [address] 11383- 4641 Oct, [place] [address] [place] [id number] [place] [address] 16787- 8046 Oct, Back pain M54.9 and Anxiety F41.9 [place] [address] [place] [id number] [place] [address] 22300- 0581 September, Anxiety F41.9 and Back pain M54.9 [place] [address] [place] [id number] [place] [address] 13342- 6097 September, Diabetes E11.9 ; Hypertension I10 ; COPD (chronic obstructive pulmonary disease) J44.9 and Lumbar radiculopathy, chronic M54.16 [place] [address] [place] [id number] [place] [address] 70976- 2180 September, Anxiety F41.9 [place] [address] 19734- 0543 Aug, [place] [address] 82529- 0992 Aug, [place] [address] 47749- 6896 Aug, Anxiety F41.9 and Back pain M54.9 [place] [address] [place] [id number] [place] [address] 64008- 0653 Aug, Medicare annual wellness visit, initial Z00.00 ; COPD ( chronic obstructive pulmonary disease) J44.9 ; PAD (peripheral artery disease) I73.9 ; Insulin long-term use Z79.4 ; Hypertension I10 ; Anxiety F41.9 ; Recurrent major depressive disorder, in full remission F33.42 ; Pressure ulcer of other site, stage 3 L89.893 ; Type 2 diabetes mellitus with diabetic peripheral angiopathy without gangrene E11.51 and 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 [place] [id number] [place] [address] 06453- 7045 Jul, Back pain M54.9 [place] [address] 12896- 4944 Jul, [place] [address] [place] [id number] [place] [address] 47322- 8320 Jul, Anxiety F41.9 and Back pain M54.9 [place] [address] [place] [id number] [place] [address] 87416- 2161 Jul, Diabetes E11.9 [facility] [address] [place] [id number] [place] [address] 76136- 2235 May, [facility] [address] [place] [address] [id number] [place] [address] 73274- 9605 May, Diabetes E11.9 ; Anxiety F41.9 ; Back pain M54.9 and COPD ( chronic obstructive pulmonary disease) J44.9 [facility] [address] [place] [id number] [place] [address] 72572- 5411 May, Back pain M54.9 [facility] [address] 37057- 2673 May, [facility] [address] [place] [id number] [place] [address] 78181- 1030 Apr, Back pain M54.9 [facility] [address] [id number] [place] [address] 61871- 5042 Mar, Back pain M54.9 [facility] [address] [place] [address] [id number] [place] [address] 14180- 2658 Mar, [facility] [address] [place] [id number] [place] [address] 46971- 4627 16 Mar, 2017 [facility] [address] [place] [address] [id number] [place] [address] 84887- 0162 14 Mar, 2017 Radiculopathy of lumbar region M54.16 [facility] [address] [place] [id number] [place] [address] 63363- 6789 13 Mar, 2017 [facility] [address] [place] [address] [id number] [place] [address] 72529- 2724 07 Mar, 2017 Encounter for immunization Z23 and Lumbar radiculopathy, chronic M54.16 [facility] [address] [place] [id number] [place] [address] 75717- 8172 Mar, Back pain M54.9 and Anxiety F41.9 [facility] [address] [address]6189 10 Feb, 2017 Acute bilateral low back pain with left-sided sciatica M54.42 and Acute bilateral low back pain with right-sided sciatica M54.41 [facility] [address] [place] [id number] [place] [address] 65835- 3759 Feb, [facility] [address] [place] [id number] [place] [address] 36126- 1632 Feb, Back pain M54.9 [facility] [address] [place] [id number] [place] [address] 73192- 0598 05 Jan, 2017 Back pain M54.9 and Anxiety F41.9 [facility] [address] [place] [id number] [place] [address] 38699- 3803 05 Jan, 2017 Diabetes E11.9 [facility] [address] [place] [id number] [place] [address] 26053- 3127 Dec, Diabetes E11.9 ; Back pain M54.9 ; Anxiety F41.9 and Insulin long-term use Z79.4 [facility] [address] [place] [id number] [place] [address] 15095- 7224 Dec, Anxiety F41.9 [facility] [address] [place] [id number] [place] [address] 28381- 2936 Dec, Back pain M54.9 [facility] [address] [place] [id number] [place] [address] 75211- 0391 Nov, Back pain M54.9 [facility] [address] [place] [id number] [place] [address] 04150- 0761 Oct, Back pain M54.9 and Anxiety F41.9 [facility] [address] [place] [id number] [place] [address] 78019- 9544 September, Back pain M54.9 [facility] [address] [place] [id number] [place] [address] 79929- 6494 September, Back pain M54.9 and Anxiety F41.9 [facility] [address] [place] [id number] [place] [address] 82862- 6799 Aug, Diabetes E11.9 ; Anxiety F41.9 ; Back pain M54.9 and PAD ( peripheral artery disease) I73.9 [facility] [address] [place] [id number] [place] [address] 86774- 7896 19 Aug, 2016 Anxiety F41.9 [facility] [address] 13837- 8887 14 Aug, 2016 Back pain M54.9 [facility] [address] 90061- 0906 Jul, Back pain M54.9 [facility] [address] [place] [id number] [place] [address] 55895- 2086 Jul, Back pain M54.9 [facility] [address] 45780- 8250 Jul, Back pain M54.9 [facility] [address] 87911- 5226 16 Jul, 2016 Dorsalgia M54.9 [facility] [address] [place] [id number] [place] [address] 13730- 0048 14 Jul, 2016 [facility] [address] [place] [id number] [place] [address] 56657- 4366 May, Back pain M54.9 [facility] [address] [place] [id number] [place] [address] 25476- 7688 May, Diabetes E11.9 ; Anxiety F41.9 ; Port catheter in place Z95.828 ; Encounter for immunization Z23 and Insulin long-term use Z79.4 [facility] [address] [place] [id number] [place] [address] 22517- 6944 Apr, Back pain M54.9 [facility] [address] 23371- 4505 Apr, Back pain M54.9 [facility] [address] [place] [id number] [place] [address] 27018- 4679 Apr, [facility] [address] [place] [id number] [place] [address] 10784- 9672 Apr, Back pain M54.9 [facility] [address] [place] [id number] [place] [address] 75610- 5579 Mar, COPD (chronic obstructive pulmonary disease) J44.9 [facility] [address] [place] [id number] [place] [address] 35054- 4013 Feb, [facility] [address] [place] [id number] [place] [address] 71076- 5097 30 Jan, 2016 [facility] [address] [place] [id number] [place] [address] 25251- 2264 Jan, [facility] [address] 07508- 0236 Jan, [facility] [address] [place] [id number] [place] [address] 27720- 1863 Jan, [facility] [address] [place] [id number] [place] [address] 18953- 4841 Dec, Diabetes E11.9 ; Hypoxia R09.02 and Back pain M54.9 [facility] [address] [place] [id number] [place] [address] 20545- 3832 Dec, [facility] [address] [place] [id number] [place] [address] 94186- 9983 Nov, [facility] [address] [place] [id number] [place] [address] 15169- 7593 Oct, Anxiety F41.9 [facility] [address] [place] [address] [id number] [place] [address] 33408- 8510 Oct, Back pain M54.9 [facility] [address] [place] [address] [id number] [place] [address] 01220- 6498 September, Back pain M54.9 [facility] [id number] [place] [address] 45860- 2409 September, Diabetes E11.9 [facility] [address] [place] [id number] [place] [address] 52891- 8395 September, [facility] [address] [place] [id number] [place] [address] 48519- 9493 September, Diabetes E11.9 ; Insulin long-term use Z79.4 and Back pain M54.9 [facility] [address] [place] [id number] [place] [address] 79696- 9722 Aug, Back pain M54.9 [facility] [address] [place] [id number] [place] [address] 03523- 3275 Aug, Back pain M54.9 ; Anxiety F41.9 and Arthropathy, unspecified M12.9 [facility] [address] [place] [id number] [place] [address] 03553- 6969 Jul, Back pain M54.9 [facility] [address] [place] [id number] [place] [address] 73195- 8296 Jul, Anxiety F41.9 [facility] [address] [place] [id number] [place] [address] 25640- 1486 Jul, Back pain M54.9 [facility] [address] [place] [place] [id number] [place] [address] 29318- 3169 Jul, [facility] [address] [place] [id number] [place] [address] 88398- 4681 Jul, [facility] [address] [place] [id number] [place] [address] 97800- 0269 May, Back pain M54.9 ; Diabetes E11.9 ; Insulin long-term use Z79.4 ; COPD (chronic obstructive pulmonary disease) J44.9 and Hypertension I10 [facility] [address] [place] [id number] [place] [address] 79360- 6141 May, Chronic pain G89.29 [facility] [address] [address]- 9544 Apr, [facility] [address] [place] [id number] [place] [address] 12381- 9424 Apr, [facility] [address] [place] [id number] [place] [address] 72089- 4591 Mar, [facility] [address] [place] [place] [id number] [place] [address] 04282- 6734 Mar, Encounter for immunization Z23 and Diabetes E11.9 [facility] [address] [place] [id number] [place] [address] 06866- 5282 Feb, [facility] [address] [place] [id number] [place] [address] 49753- 1477 Feb, [facility] [address] [place] [place] [id number] [place] [address] 80364- 4040 Jan, [facility] [address] [place] [id number] [place] [address] 50507- 5828 Jan, [facility] [address] [id number] [place] [address] 88903- 0533 Dec, [facility] [address] [address]- 5649 Dec, [facility] [address] [place] [address] 67323- 1760 Dec, Unspecified arthropathy, site unspecified 716.90 and Diabetes mellitus type 2, uncontrolled 250.02 [facility] [address] [address]- 7905 Dec, [facility] [address] [place] [id number] [place] [address] 59074- 7110 Nov, [facility] [address] [address]- 7197 Oct, [facility] [address] [place] [facility] [place] [address]- 1439 September, [facility] [place] [facility] [address] [id number] [place] [address]- 3661 September, [facility] [place] [facility] [address] [id number] [place] [address]- 8624 September, [facility] [place] [facility] [address] [id number] [place] [address]- 7627 September, [facility] [place] [facility] [address] [id number] [place] [address]- 4423 14 Aug, 2014 [facility] [place] [facility] [address] [id number] [place] [address]- 3542 13 Aug, 2014 [facility] [place] [facility] [address] [id number] [place] [address]- 7460 18 Jul, 2014 [facility] [place] [facility] [address] [id number] [place] [address]- 5448 18 Jul, 2014 [facility] [place] [facility] [address] [id number] [place] [address]- 5204 16 Jul, 2014 [facility] [place] [facility] [address] [id number] [place] [address]- 5347 16 Jul, 2014 [facility] [place] [facility] [address] [id number] [place] [address]- 9071 16 Jul, 2014 [facility] [place] [facility] [address] [id number] [place] [address]- 6323 16 Jul, 2014 [facility] [place] [facility] [address] [id number] [place] [address]- 1399 16 Jul, 2014 [facility] [place] [facility] [address] [id number] [place] [address]- 6179 16 Jul, 2014 [facility] [place] [facility] [address] [id number] [place] [address]- 4887 16 Jul, 2014 [facility] [place] [facility] [address] [id number] [place] [address]- 3592 13 Jul, 2014 [facility] [place] [facility] [address] [id number] [place] [address]- 1567 Jul, 2014 [facility] [place] [facility] [address] [id number] [place] [address]- 0455 Jul, 2014 [facility] [place] [facility] [address] [id number] [place] [address]- 4286 Jul, 2014 [facility] [place] [facility] [address] [id number] [place] [address]- 7491 17 Jul, 2014 [facility] [place] [facility] [address] [id number] [place] [address]- 0566 17 Jul, 2014 [facility] [place] [facility] [address] [id number] [place] [address]- 7189 16 Jul, 2014 [facility] [place] [facility] [address] [id number] [place] [address]- 5213 16 Jul, 2014 [facility] [place] [facility] [address] [id number] [place] [address]- 2209 16 Jul, 2014 [facility] [place] [facility] [address] [id number] [place] [address]- 4243 16 Jul, 2014 [facility] [place] [facility] [address] [id number] [place] [address]- 1514 16 Jul, 2014 [facility] [place] [facility] [address] [id number] [place] [address]- 7121 16 Jul, 2014 [facility] [place] [facility] [address] [id number] [place] [address]- 4117 16 Jul, 2014 [facility] [place] [facility] [address] [id number] [place] [address]- 2874 16 Jul, 2014 [facility] [place] [facility] [address] [id number] [place] [address]- 3196 16 Jul, 2014 [facility] [place] [facility] [address] [id number] [place] [address]- 8440 16 Jul, 2014 [facility] [place] [facility] [address] [id number] [place] [address]- 5713 16 Jul, 2014 [facility] [place] [facility] [address] [id number] [place] [address]- 0187 Jul, 2014 [facility] [place] [facility] [address] [id number] [place] [address]- 5036 Jul, 2014 [facility] [place] [facility] [address] [id number] [place] [address]- 5859 Jul, [facility] [place] [facility] [address] [id number] [place] [address]- 2374 May, [facility] [place] [facility] [address] [id number] [place] [address]- 9555 May, [facility] [place] [facility] [address] [id number] [place] [address]- 5477 May, [facility] [place] [facility] [address] [id number] [place] [address]- 3017 May, [facility] [place] [facility] [address] [id number] [place] [address]- 9687 May, [facility] [place] [facility] [address] [id number] [place] [address]- 5988 May, [facility] [place] [facility] [address] [id number] [place] [address]- 4027 May, [facility] [place] [facility] [address] [id number] [place] [address]- 8800 May, [facility] [place] [facility] [address] [id number] [place] [address]- 6123 May, [facility] [place] [facility] [address] [id number] [place] [address]- 3645 May, [facility] [place] [facility] [address] [id number] [place] [address]- 3919 Apr, [facility] [place] [facility] [address] [id number] [place] [address]- 0254 Apr, [facility] [place] [facility] [address] [id number] [place] [address]- 1003 Apr, [facility] [place] [facility] [address] [id number] [place] [address]- 8209 Apr, [facility] [place] [facility] [address] [facility] [id number] [place] 3911 Apr, [facility] [place] [facility] [address] [id number] [place] [address]- 4067 Apr, [facility] [place] [facility] [address] [id number] [place] [address]- 3540 Mar, [facility] [place] [facility] [address] [id number] [place] [address]- 1865 Mar, [facility] [place] [facility] [address] [id number] [place] [address]- 2665 Mar, [facility] [place] [facility] [address] [id number] [address]- 3869 Mar, [facility] [place] [facility] [address] [id number] [place] [address]- 7932 Mar, [facility] [place] [facility] [address] [id number] [place] [address]- 2375 Mar, [facility] [place] [facility] [address] [id number] [address]- 1311 Mar, [facility] [place] [facility] [address] [id number] [address]- 4668 Mar, [facility] [place] [facility] [address] [id number] [place] [address]- 8606 Mar, [facility] [place] [facility] [address] [id number] [address]- 0066 Mar, [facility] [place] [facility] [address] [id number], [place] [address]- 9403 Mar, [facility] [place] [facility] [address] [id number] [place] [address]- 0895 30 Feb, 2014 [facility] [place] [facility] [address] [id number] [place] [address]- 9368 30 Feb, 2014 [facility] [place] [facility] [address] [id number] [place] [address]- 5866 Feb, [facility] [place] [facility] [address] [id number] [place] [address]- 2542 Feb, [facility] [place] [facility] [address] [id number] [place] [address]- 2700 Feb, [facility] [place] [facility] [address] [id number] [place] [address]- 8548 Feb, [facility] [place] [facility] [address] [id number] [place] [address]- 3274 Feb, [facility] [place] [facility] [address] [id number] [place] [address]- 1397 Feb, [facility] [place] [facility] [address] [id number] [place] [address]- 7728 Feb, [facility] [place] [facility] [address] [id number] [place] [address]- 0550 Feb, [facility] [place] [facility] [address] [id number] [place] [address]- 7543 22 Jan, 2014 [facility] [place] [facility] [address] [id number] [place] [address]- 2544 22 Jan, 2013 [facility] [place] [facility] [address] [id number] [place] [address]- 2549 16 Jan, 2013 [facility] [place] [facility] [address] [id number] [place] [address] 16 Sep, 2013 [facility] [place] [facility] [address] [id number] [place] [address] 12 Jan, 2013 [facility] [place] [facility] [address] [id number] [place] [address] Jan, [facility] [place] [facility] [address] [id number] [place] [address] Jan, [facility] [place] [facility] [address] [id number] [place] [address] Dec, [facility] [place] [facility] [address] [id number] [place] [address] Dec, [facility] [place] [facility] [address] [id number] [place] [address] Dec, [facility] [place] [facility] [address] [id number] [place] [address] Dec, [facility] [place] [facility] [address] [id number] [place] [address] Dec, [facility] [place] [facility] [address] [id number] [place] [address] Dec, [facility] [place] [facility] [address] [id number] [place] [address] Dec, [facility] [place] [facility] [address] [id number] [place] [address] Dec, [facility] [place] [facility] [address] [id number] [place] [address] Oct, [facility] [place] [facility] [address] [id number] [place] [address] Oct, [facility] [place] [facility] [address] [id number] [place] [address] September, [facility] [place] [facility] [address] [id number] [place] [address]- [address] September, [facility] [place] [facility] [address] [id number] [place] [address] September, [facility] [place] [facility] [address] [id number] [place] [address] September, [facility] [place] [facility] [address] [id number] [place] [address]- [address] September, [facility] [place] [facility] [address] [id number] [place] [address]- [address] September, [facility] [place] [facility] [address] [id number] [place] [address]- [address] September, [facility] [place] [facility] [address] [id number] [place] [address] Aug, [facility] [place] [facility] [address] [id number] [place] [address] Aug, [facility] [place] [facility] [address] [id number] [place] [address] Jul, [facility] [place] [facility] [address] [id number] [place] [address] 24 Jul, 2013 [facility] [place] [facility] [address] [id number] [place] [address]- [address] Jul, [facility] [place] [facility] [address] [id number] [place] [address] Jul, [facility] [place] [facility] [address] [id number] [place] [address]- [address] 14 Jul, 2013 [facility] [place] [facility] [address] [id number] [place] [address] 14 Jul, 2013 [facility] [place] [facility] [address] [id number] [place] [address]- [address] Jul, [facility] [place] [facility] [address] [id number] [place] [address] Jul, [facility] [place] [facility] [address] [id number] [place] [address] May, [facility] [place] [facility] [address] [id number] [place] [address] May, [facility] [place] [facility] [address] [id number] [place] [address] May, [facility] [place] [facility] [address] [id number] [place] [address] 14 May, 2013 [facility] [place] [facility] [address] [id number] [place] [address] 18 Apr, 2013 [facility] [place] [facility] [address] [id number] [place] [address]- [address] Mar, [facility] [place] [facility] [address] [id number] [place] [address]- [address] Mar, [facility] [place] [facility] [address] [id number] [place] [address]- [address] Mar, [facility] [place] [facility] [address] [id number] [place] [address] Mar, [facility] [place] [facility] [address] [id number] [place] [address]- [address] Mar, [facility] [place] [facility] [address] [id number] [place] [address] Mar, [facility] [place] [facility] [address] [id number] [place] [address] Mar, [facility] [place] [facility] [address] [id number] [place] [address]- [address] 18 Mar, 2013 [facility] [place] [facility] [address] [id number] [place] [address] Mar, [facility] [place] [facility] [address] [id number] [address] Mar, [facility] [place] [facility] [address] [id number] [place] [address]- [address] Mar, [facility] [facility] [address] [id number] [place] [address] 04 Mar, 2013 [facility] [place] [facility] [address] [id number] [address] 15 Feb, 2013 [facility] [place] [facility] [address] [id number], [place] [address] Feb, [facility] [place] [facility] [address] [id number] [place] [address] Feb, [facility] [place] [facility] [address] [id number] [place] [address] Feb, [facility] [place] [facility] [address] [id number] [place] [address] Feb, [facility] [place] [facility] [address] [id number] [place] [address] Jan, [facility] [place] [facility] [address] [id number] [place] [address] Dec, [facility] [place] [facility] [address] [id number] [place] [address] Dec, [facility] [place] [facility] [address] [id number] [place] [address] Dec, [facility] [place] [facility] [address] [id number] [place] [address] Nov, [facility] [place] [facility] [address] [id number] [place] [address] Nov, [facility] [place] [facility] [address] [id number] [place] [address] Nov, [facility] [place] [facility] [address] [id number] [place] [address] Oct, [facility] [place] [facility] [address] [id number] [place] [address] 119[address] Oct, [facility] [place] [facility] [address] [id number] [place] [address] Oct, [facility] [place] [facility] [address] [id number] [place] [address] September, [facility] [place] [facility] [address] [id number] [place] [address] September, [facility] [place] [facility] [address] [id number] [place] [address] 14 Sep, 2012 [facility] [address] [id number] [place] [address] September, [facility] [address] [id number] [place] [address] September, [facility] [address] [id number] [place] [address] Aug, [facility] [address] [id number] [place] [address] Aug, [facility] [address] [id number] [place] [address] Aug, [facility] [address] [id number] [place] [address] Jul, [facility] [address] [id number] [place] [address] Jul, [facility] [address] [id number] [place] [address] Jul, [facility] [address] [id number] [place] [address] Jul, [facility] [address] [id number] [place] [address] Jul, [facility] [address] [id number] [place] [address] Jul, [facility] [address] [id number] [place] [address] Jul, [facility] [address] [id number] [place] [address] 17[address] May, [facility] [address] [id number] [place] [address] May, [facility] [address] [id number] [place] [address] May, [facility] [address] [id number] [place] [address] Apr, [facility] [place] [facility] [address] [id number] [place] [address] Apr, [facility] [facility] [address] [id number] [place] [address] Apr, [facility] [place] [facility] [address] [id number] [place] [address] Apr, [facility] [place] [facility] [address] [id number] [place] [address] Apr, [facility] [place] [facility] [address] [id number] [place] [address]- [address] Mar, [facility] [facility] [address] [id number] [place] [address] Mar, [facility] [facility] [address] [id number], [place] [address] Mar, [facility] [facility] [address] [id number] [place] [address] 284[address] Mar, [facility] [address] [id number], [place] [address] Feb, [facility] [address] [id number], [place] [address] Feb, [facility] [address] [id number], [place] [address] Feb, [facility] [address] [id number], [place] [address] Feb, [facility] [address] [id number], [place] [address] Feb, [facility] [address] [facility] [id number], [place] [address] Jan, [facility] [address] [id number] [place] [address]- 60[address] Dec, [facility] [facility] [address] [id number] [place] [address]- 2826 Dec, [facility] [place] [facility] [address] [id number] [place] [address]- 4846 Dec, [facility] [place] [facility] [address] [id number] [place] [address]- [address]757 Nov, [facility] [address] [id number] [place] [address] 40[address] Nov, [facility] [place] [facility] [address] [id number] [place] [address]- 0843 Nov, [facility] [address] [id number] [place] [address] 5939 Oct, [facility] [facility] [address] [id number] [place] [address] 8438 Oct, [facility] [place] [facility] [address] [id number] [place] [address]- 4968 Oct, [facility] [address] [id number] [place] [address]- [address] Oct, [facility] [address] [id number] [place] [address]- 9857 September, [facility] [address] [id number] [place] [address]- 3804 September, [facility] [address] [id number] [place] [address]- [address] 30 Aug, 2011 [facility] [address] [id number] [place] [address]- [address] 23 Aug, 2011 [facility] [address] [id number] [place] [address]- 9618 Aug, [facility] [address] [id number] [place] [address]- 49[address] Aug, [facility] [address] [id number] [place] [address]- 3189 Aug, [facility] [address] [id number] [place] [address]- 6492 Aug, [facility] [address] [id number] [place] [address]- 4056 Aug, [facility] [address] [id number] [place] [address]- 0021 Jul, [facility] [address] [id number] [place] [address]- 236[address] Jul, [facility] [address] [id number] [place] [address]- 45[address] Jul, [facility] [address] [id number] [place] [address]- 6941 May, [facility] [address] [id number] [place] [address]- 9036 May, [facility] [address] [id number] [place] [address]- [address] May, [facility] [address] [id number] [place] [address]- [address] Apr, [facility] [address] [id number] [place] [address]- 75[address] Apr, [facility] [address] [id number] [place] [address]- 0057 Mar, [facility] [address] [id number] [place] [address]- 8629 Mar, [facility] [address] [id number] [place] [address]- 8186 Mar, [facility] [address] [id number] [place] [address]- 3513 Mar, [facility] [address] [id number] [place] [address] Mar, [facility] [address] [facility] [id number] [place] [address]- [address] Mar, [facility] [address] [facility] [id number], [place] [address] Feb, [facility] [address] [facility] [id number] [address] Feb, [facility] [address] [facility] [id number], [place] [address] Feb, IMMUNIZATIONS No Known Immunizations SOCIAL HISTORY Never Assessed REASON FOR VISIT PA CT Chest low dose PLAN OF CARE VITAL SIGNS MEDICATIONS Unknown [...]
--- OUTSIDE RECORDS SUMMARY | 2018-05-16 07:02 | XMS REPORT ---
Author Author FERNY SILVERIO Organization [facility] Address [address] [place] [address] Care Team Providers Care Investigator Operator Name Role Phone FERNY SILVERIO Unavailable PROBLEMS Type Condition ICD9-CM Code HMF06-BD Code Onset Dates Condition Status SNOMED Code Problem Hypoxia R09.02 Active 118537687 Problem Port catheter in place Z95.828 Active 130528920 Problem Anxiety F41.9 Active 86113177 Problem Type 2 diabetes mellitus with diabetic peripheral angiopathy without gangrene E11.51 Active 082917678 Problem Pressure ulcer of other site, stage 3 L89.893 Active 375539967 Problem Lumbar radiculopathy, chronic M54.16 Active 054142536 Problem PAD (peripheral artery disease) I73.9 Active 167815346 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 Active 602454495 Problem Recurrent major depressive disorder, in full remission F33.42 Active 961148148 Problem Diabetes E11.9 Active 67546592 Problem Hypertension I10 Active 14794353 Problem Back pain M54.9 Active 944332526 Problem Insulin long-term use Z79.4 Active 381635116 Problem COPD (chronic obstructive pulmonary disease) J44.9 Active 82203216 ALLERGIES No Known Allergies ENCOUNTERS Encounter Location Date Diagnosis [facility] [id number] [address] Nov, Back pain M54.9 and Anxiety F41.9 [facility] [id number] [place] [address] 95274- 6702 18 Oct, 2017 [facility] [id number] [place] [address] 53234- 6363 2017 Back pain M54.9 and Anxiety F41.9 [facility] [id number] [place] [address] 37030- 3982 September, Anxiety F41.9 and Back pain M54.9 [facility] [id number] [place] [address] 47548- 3296 September, Diabetes E11.9 ; Hypertension I10 ; COPD (chronic obstructive pulmonary disease) J44.9 and Lumbar radiculopathy, chronic M54.16 [facility] [place] [id number] [place] [address] 83506- 1606 September, Anxiety F41.9 [facility] [id number] [place] [address] 07229- 5489 Aug, [facility] [address] 6[address]60- 7241 Aug, [place] [id number] [place] [address] 23542- 3805 Aug, Anxiety F41.9 and Back pain M54.9 [facility] [id number] [place] [address] 62864- 5562 Aug, Medicare annual wellness visit, initial Z00.00 ; COPD ( chronic obstructive pulmonary disease) J44.9 ; PAD (peripheral artery disease) I73.9 ; Insulin long-term use Z79.4 ; Hypertension I10 ; Anxiety F41.9 ; Recurrent major depressive disorder, in full remission F33.42 ; Pressure ulcer of other site, stage 3 L89.893 ; Type 2 diabetes mellitus with diabetic peripheral angiopathy without gangrene E11.51 and FDC current use of insulin Z79.4 [facility] [id number] [place] [address] 85678- 6455 Jul, Back pain M54.9 [facility] [place] [id number] [place] [address] 79810- 2159 Jul, [facility] [place] [id number] [place] [address] 74096- 4801 Jul, Anxiety F41.9 and Back pain M54.9 [facility] [place] [id number] [place] [address] 73032- 1605 Jul, Diabetes E11.9 [facility] [id number] [place] [address] 36345- 5658 May, [facility] [id number] [place] [address] 14990- 4538 May, Diabetes E11.9 ; Anxiety F41.9 ; Back pain M54.9 and COPD ( chronic obstructive pulmonary disease) J44.9 [facility] [id number] [place] [address] 86359- 8072 May, Back pain M54.9 [facility] [address] 80888- 0256 May, [facility] [id number] [place] [address] 67927- 3223 Apr, Back pain M54.9 [facility] [id number] [place] [address] 88017- 6093 Mar, Back pain M54.9 [facility] [id number] [place] [address] 92808- 9377 Mar, [facility] [id number] [place] [address] 29038- 3174 16 Mar, 2017 [facility] [id number] [place] [address] 55519- 0792 14 Mar, 2017 Radiculopathy of lumbar region M54.16 [facility] [id number] [place] [address] 75980- 9317 13 Mar, 2017 [facility] [id number] [place] [address] 86647- 1887 07 Mar, 2017 Encounter for immunization Z23 and Lumbar radiculopathy, chronic M54.16 [facility] [id number] [place] [address] 32691- 2332 01 Mar, 2017 Back pain M54.9 and Anxiety F41.9 [facility] [address], [place] [address] 10 Feb, 2017 Acute bilateral low back pain with left-sided sciatica M54.42 and Acute bilateral low back pain with right-sided sciatica M54.41 [facility] [id number] [place] [address] 33948- 5387 Feb, [facility] [id number] [place] [address] 08711- 3086 Feb, Back pain M54.9 [facility] [id number] [place] [address] 35100- 4870 05 Jan, 2017 Back pain M54.9 and Anxiety F41.9 [facility] [id number] [place] [address] 58774- 4729 05 Jan, 2017 Diabetes E11.9 [facility] [id number] [place] [address] 72490- 3719 Dec, Diabetes E11.9 ; Back pain M54.9 ; Anxiety F41.9 and Insulin long-term use Z79.4 [facility] [id number] [place] [address] 89977- 7297 Dec, Anxiety F41.9 [facility] [id number] [place] [address] 19825- 7757 Dec, Back pain M54.9 [facility] [id number] [place] [address] 16775- 4904 Nov, Back pain M54.9 [facility] [id number] [place] [address] 70084- 3137 Oct, Back pain M54.9 and Anxiety F41.9 [facility] [id number] [place] [address] 22868- 9718 September, Back pain M54.9 [facility] [id number] [place] [address] 97681- 4486 September, Back pain M54.9 and Anxiety F41.9 [facility] [id number] [place] [address] 94894- 0730 Aug, Diabetes E11.9 ; Anxiety F41.9 ; Back pain M54.9 and PAD ( peripheral artery disease) I73.9 [facility] [id number] [place] [address] 63776- 1736 19 Aug, 2016 Anxiety F41.9 [facility] [address] 45650- 6281 Aug, Back pain M54.9 [facility] [address] 23335- 7671 Jul, Back pain M54.9 [facility] [id number] [place] [address] 40913- 9786 Jul, Back pain M54.9 [facility] [address] 03853- 0432 Jul, Back pain M54.9 [facility] [id number] [place] [address] 64423- 0669 16 Jul, 2016 Dorsalgia M54.9 [facility] [id number] [place] [address] 06319- 0567 14 Jul, 2016 [facility] [id number] [place] [address] 91770- 4129 May, Back pain M54.9 [facility] [id number] [place] [address] 03344- 3998 May, Diabetes E11.9 ; Anxiety F41.9 ; Port catheter in place Z95.828 ; Encounter for immunization Z23 and Insulin long-term use Z79.4 [facility] [id number] [place] [address] 84776- 4064 Apr, Back pain M54.9 [facility] [id number] [place] [address] 06549- 8476 Apr, Back pain M54.9 [facility] [id number] [place] [address] 26616- 3847 Apr, [facility] [id number] [place] [address] 12408- 1438 Apr, Back pain M54.9 [facility] [id number] [place] [address] 62858- 1863 Mar, COPD (chronic obstructive pulmonary disease) J44.9 [facility] [id number] [place] [address] 78112- 7702 Feb, [facility] [id number] [place] [address] 74461- 6197 30 Jan, 2016 [facility] [id number] [place] [address] 54992- 7569 Jan, [facility] [id number] [place] [address] 28918- 5216 Jan, [facility] [id number] [place] [address] 76254- 5570 Jan, [facility] [id number] [place] [address] 64030- 7736 Dec, Diabetes E11.9 ; Hypoxia R09.02 and Back pain M54.9 [facility] [id number] [place] [address] 71857- 4751 Dec, [facility] [id number] [place] [address] 55098- 5537 Nov, [facility] [id number] [place] [address] 08298- 5452 Oct, Anxiety F41.9 [facility] [id number] [place] [address] 62201- 5249 Oct, Back pain M54.9 [facility] [id number] [place] [address] 19518- 1342 September, Back pain M54.9 [facility] [id number] [place] [address] 83243- 8084 September, Diabetes E11.9 [facility] [id number] [place] [address] 90841- 5479 September, [facility] [id number] [place] [address] 86455- 8503 September, Diabetes E11.9 ; Insulin long-term use Z79.4 and Back pain M54.9 [facility] [id number] [place] [address] 83999- 6748 Aug, Back pain M54.9 [facility] [id number] [place] [address] 97783- 0740 Aug, Back pain M54.9 ; Anxiety F41.9 and Arthropathy, unspecified M12.9 [facility] [id number] [place] [address] 99354- 7105 Jul, Back pain M54.9 [facility] [id number] [place] [address] 23530- 4342 Jul, Anxiety F41.9 [facility] [id number] [place] [address] 18699- 6004 Jul, Back pain M54.9 [facility] [id number] [place] [address] 41474- 4411 Jul, [facility] [id number] [place] [address] 87100- 7063 Jul, [facility] [id number] [place] [address] 74403- 7412 May, Back pain M54.9 ; Diabetes E11.9 ; Insulin long-term use Z79.4 ; COPD (chronic obstructive pulmonary disease) J44.9 and Hypertension I10 [facility] [id number] [place] [address] 90192- 2453 May, Chronic pain G89.29 [facility] [address], [place] [address]- 4709 Apr, [facility] [id number] [place] [address] 93227- 4294 Apr, [facility] [id number] [place] [address] 81628- 1449 Mar, [facility] [id number] [place] [address] 00288- 7079 Mar, Encounter for immunization Z23 and Diabetes E11.9 [facility] [id number] [place] [address] 07912- 5738 Feb, [facility] [id number] [place] [address] 34293- 6262 Feb, [facility] [id number] [place] [address] 16167- 1491 Jan, [facility] [address] [place] [address] 31101- 1474 Jan, [facility] [address] [place] [address] 57697- 8659 Dec, [facility] [address], [place] [address]- 4225 Dec, [facility] [address] [place] [address] 29331- 7880 Dec, Unspecified arthropathy, site unspecified 716.90 and Diabetes mellitus type 2, uncontrolled 250.02 [facility] [address], [place] [address]- 5917 Dec, [facility] [id number] [place] [address] 38400- 6831 Nov, [facility] [address], [place] [address]- 4630 Oct, [facility] [id number] [place] [address]- 7247 September, [facility] [address] [id number] [place] [address]- 7151 September, [facility] [place] [facility] [address] [id number] [place] 9999 18 Sep, 2014 [facility] [address] [id number] [place] [address]- 5821 September, [facility] [place] [facility] [address] [id number] [place] [address]- 0383 14 Aug, 2014 [facility] [place] [facility] [address] [id number] [place] [address]- 9008 13 Aug, 2014 [facility] [place] [facility] [address] [id number] [place] [address]- 1454 18 Jul, 2014 [facility] [place] [facility] [address] [id number] [place] [address]- 9531 18 Jul, 2014 [facility] [address] [id number] [place] [address]- 7962 16 Jul, 2014 [facility] [place] [facility] [address] [id number] [place] [address]- 5171 16 Jul, 2014 [facility] [place] [facility] [address] [id number] [place] [address]- 3016 16 Jul, 2014 [facility] [place] [facility] [address] [id number] [place] [address]- 4883 16 Jul, 2014 [facility] [place] [facility] [address] [id number] [place] [address]- 3375 16 Jul, 2014 [facility] [place] [facility] [address] [id number] [place] [address]- 4060 16 Jul, 2014 [facility] [place] [facility] [address] [id number] [place] [address]- 5892 16 Jul, 2014 [facility] [place] [facility] [address] [id number] [place] [address]- 6132 13 Jul, 2014 [facility] [place] [facility] [address] [id number] [place] [address]- 3095 13 Jul, 2014 [facility] [place] [facility] [address] [id number] [place] [address]- 9782 09 Jul, 2014 [facility] [place] [facility] [address] [id number] [place] [address]- 8829 09 Jul, 2014 [facility] [place] [facility] [address] [id number] [place] [address]- 5822 17 Jul, 2014 [facility] [place] [facility] [address] [id number] [place] [address]- 4507 17 Jul, 2014 [facility] [place] [facility] [address] [id number] [place] [address]- 4592 16 Jul, 2014 [facility] [place] [facility] [address] [id number] [place] [address]- 8808 16 Jul, 2014 [facility] [place] [facility] [address] [id number] [place] [address]- 0942 16 Jul, 2014 [facility] [place] [facility] [address] [id number] [place] [address]- 9298 16 Jul, 2014 [facility] [place] [facility] [address] [id number] [place] [address]- 2274 16 Jul, 2014 [facility] [place] [facility] [address] [id number] [place] [address]- 3357 16 Jul, 2014 [facility] [place] [facility] [address] [id number] [place] [address]- 8888 16 Jul, 2014 [facility] [place] [facility] [address] [id number] [place] [address]- 6021 16 Jul, 2014 [facility] [place] [facility] [address] [id number] [place] [address]- 5391 16 Jul, 2014 [facility] [place] [facility] [address] [id number] [place] [address]- 3114 16 Jul, 2014 [facility] [place] [facility] [address] [id number] [place] [address]- 2935 16 Jul, 2014 [facility] [place] [facility] [address] [id number] [place] [address]- 8979 Jul, 2014 [facility] [place] [facility] [address] [id number] [place] [address]- 3761 Jul, 2014 [facility] [place] [facility] [address] [id number] [place] [address]- 1358 Jul, [facility] [place] [facility] [address] [id number] [place] [address]- 4503 May, [facility] [place] [facility] [address] [id number] [place] [address]- 2139 May, [facility] [place] [facility] [address] [id number] [place] [address]- 0732 May, [facility] [place] [facility] [address] [id number] [place] [address]- 7952 May, [facility] [place] [facility] [address] [id number] [place] [address]- 2295 May, [facility] [place] [facility] [address] [id number] [place] [address]- 8430 May, [facility] [place] [facility] [address] [id number] [place] [address]- 9907 May, [facility] [place] [facility] [address] [id number] [place] [address]- 5555 May, [facility] [place] [facility] [address] [id number] [place] [address]- 8705 May, [facility] [place] [facility] [address] [id number] [place] [address]- 6826 May, [facility] [place] [facility] [address] [id number] [place] [address]- 1574 Apr, [facility] [place] [facility] [address] [id number] [place] [address]- 5011 Apr, [facility] [place] [facility] [address] [id number] [place] [address]- 4736 Apr, [facility] [place] [facility] [address] [id number] [place] [address]- 3608 Apr, [facility] [place] [facility] [address] [id number] [place] [address]- 1260 Apr, [facility] [place] [facility] [address] [id number] [place] [address]- 2359 Apr, [facility] [place] [facility] [address] [id number] [place] [address]- 8764 Mar, [facility] [place] [facility] [address] [id number] [place] [address]- 8475 Mar, [facility] [place] [facility] [address] [id number] [place] [address]- 0861 Mar, [facility] [place] [facility] [address] [id number] [place] [address]- 8925 Mar, [facility] [place] [facility] [address] [id number] [place] [address]- 1911 Mar, [facility] [place] [facility] [address] [id number] [place] [address]- 6508 Mar, [facility] [place] [facility] [address] [id number], [place] [address]- 9882 Mar, [facility] [place] [facility] [address] [id number], [place] [address]- 7303 Mar, [facility] [place] [facility] [address] [id number] [place] [address]- 8185 Mar, [facility] [place] [facility] [address] [id number], [place] [address]- 5872 Mar, [facility] [place] [facility] [address] [id number] [place] [address]- 2322 Mar, [facility] [place] [facility] [address] [id number] [place] [address]- 2416 30 Feb, 2014 [facility] [place] [facility] [address] [id number] [place] [address]- 3954 30 Feb, 2014 [facility] [place] [facility] [address] [id number] [place] [address]- 0406 Feb, [facility] [place] [facility] [address] [id number] [place] [address] Feb, [facility] [place] [facility] [address] [id number] [place] [address] Feb, [facility] [place] [facility] [address] [id number] [place] [address] Feb, [facility] [place] [facility] [address] [id number] [place] [address] Feb, [facility] [place] [facility] [address] [id number] [place] [address] Feb, [facility] [place] [facility] [address] [id number] [place] [address]99 Feb, [facility] [place] [facility] [address] [id number] [place] [address] Feb, [facility] [place] [facility] [address] [id number] [place] [address] 22 Jan, 2014 [facility] [place] [facility] [address] [id number] [place] [address] 22 Jan, 2013 [facility] [place] [facility] [address] [id number] [place] [address] 16 Jan, 2013 [facility] [place] [facility] [address] [id number] [place] [address] 16 Sep, 2013 [facility] [place] [facility] [address] [id number] [place] [address] 12 Jan, 2013 [facility] [place] [facility] [address] [id number] [place] [address] Jan, [facility] [place] [facility] [address] [id number] [place] [address] 8455 Jan, [facility] [place] [facility] [address] [id number] [place] [address] Dec, [facility] [place] [facility] [address] [id number] [place] [address]206 Dec, [facility] [place] [facility] [address] [id number] [place] [address] Dec, [facility] [place] [facility] [address] [id number] [place] [address]- [address]362 Dec, [facility] [place] [facility] [address] [id number] [place] [address]- [address]594 Dec, [facility] [place] [facility] [address] [id number] [place] [address] Dec, [facility] [place] [facility] [address] [id number] [place] [address] Dec, [facility] [place] [facility] [address] [id number] [place] [address] 7037 Dec, [facility] [place] [facility] [address] [id number] [place] [address] 6[address] Oct, [facility] [place] [facility] [address] [id number] [place] [address]185 Oct, [facility] [place] [facility] [address] [id number] [place] [address] September, [facility] [place] [facility] [address] [id number] [place] [address] 4[address] September, [facility] [place] [facility] [address] [id number] [place] [address]- 2916 September, [facility] [place] [facility] [address] [id number] [place] [address] September, [facility] [place] [facility] [address] [id number] [place] [address] 9[address] September, [facility] [place] [facility] [address] [id number] [place] [address]- 6468 September, [facility] [place] [facility] [address] [id number] [place] [address]- 0610 September, [facility] [place] [facility] [address] [id number] [place] [address] Aug, [facility] [place] [facility] [address] [id number] [place] [address] Aug, [facility] [place] [facility] [address] [id number] [place] [address]- 6314 Jul, [facility] [place] [facility] [address] [id number] [place] [address]- 7969 24 Jul, 2013 [facility] [place] [facility] [address] [facility] [id number] [place] [address]- 7928 17 Jul, 2013 [facility] [place] [facility] [address] [id number] [place] [address]- [address] 17 Jul, 2013 [facility] [place] [facility] [address] [id number] [place] [address] 14 Jul, 2013 [facility] [place] [facility] [address] [facility] [id number] [place] [address]- [address] 14 Jul, 2013 [facility] [place] [facility] [address] [facility] [id number] [place] [address] Jul, [facility] [place] [facility] [address] [id number] [place] [address] Jul, [facility] [place] [facility] [address] [id number] [place] [address]14 15 May, 2013 [facility] [place] [facility] [address] [id number] [place] [address] 15 May, 2013 [facility] [place] [facility] [address] [id number] [place] [address]- [address] 14 May, 2013 [facility] [place] [facility] [address] [id number] [place] [address] 14 May, 2013 [facility] [place] [facility] [address] [id number] [place] [address]- [address] 18 Apr, 2013 [facility] [place] [facility] [address] [id number] [place] [address] 2737 20 Mar, 2013 [facility] [place] [facility] [address] [id number] [place] [address] 20 Mar, 2013 [facility] [place] [facility] [address] [id number] [place] [address] 24[address] 20 Mar, 2013 [facility] [place] [facility] [address] [id number] [place] [address] 4[address] Mar, [facility] [place] [facility] [address] [id number] [place] [address]- [address]204 18 Mar, 2013 [facility] [place] [facility] [address] [address] [id number] [place] [address] 18 Mar, 2013 [facility] [place] [facility] [address] [id number] [place] [address] 18 Mar, 2013 [facility] [place] [facility] [address] [id number], [place] [address] 18 Mar, 2013 [facility] [place] [facility] [address] [id number], [place] [address] Mar, [facility] [place] [facility] [address] [id number], [place] [address] 11 Mar, 2013 [facility] [place] [facility] [address] [id number], [place] [address] 04 Mar, 2013 [facility] [place] [facility] [address] [id number], [place] [address] 04 Mar, 2013 [facility] [place] [facility] [address] [id number], [place] [address] 15 Feb, 2013 [facility] [place] [facility] [address] [id number], [place] [address] Feb, [facility] [place] [facility] [address] [id number] [place] [address] Feb, [facility] [place] [facility] [address] [id number] [place] [address] Feb, [facility] [place] [facility] [address] [id number] [place] [address] Feb, [facility] [place] [facility] [address] [id number] [place] [address] 2003 Jan, [facility] [place] [facility] [address] [id number] [place] [address] Dec, [facility] [place] [facility] [address] [id number] [place] [address] 69[address] Dec, [facility] [place] [facility] [address] [id number] [place] [address] Dec, [facility] [place] [facility] [address] [id number] [place] [address] 90[address] Nov, [facility] [place] [facility] [address] [id number] [place] [address] Nov, [facility] [place] [facility] [address] [id number] [place] [address]994 Nov, [facility] [place] [facility] [address] [id number] [place] [address] 37[address] Oct, [facility] [place] [facility] [address] [id number] [place] [address] 4624 Oct, [facility] [place] [facility] [address] [id number] [place] [address]239 Oct, [facility] [place] [facility] [address] [id number] [place] [address] September, [facility] [place] [facility] [address] [id number] [place] [address] September, [facility] [place] [facility] [address] [id number] [place] [address] 9[address] 14 Sep, 2012 [facility] [address] [id number] [place] [address] September, [facility] [address] [id number] [place] [address] 4495 September, [facility] [address] [id number] [place] [address] Aug, [facility] [address] [id number] [place] [address] Aug, [facility] [address] [id number] [place] [address] 9265 Aug, [facility] [address] [id number] [place] [address] 1325 Jul, [facility] [address] [id number] [place] [address] 4604 Jul, [facility] [address] [id number] [place] [address] Jul, [facility] [address] [id number] [place] [address] Jul, [facility] [address] [id number] [place] [address] 3609 Jul, [facility] [address] [id number] [place] [address] 9243 Jul, [facility] [address] [id number] [place] [address] 2294 Jul, [facility] [place] [facility] [address] [id number] [place] [address] May, [facility] [place] [facility] [address] [id number] [place] [address] 4[address] May, [facility] [address] [id number] [place] [address] May, [facility] [place] [facility] [address] [id number] [place] [address] 0416 Apr, [facility] [place] [facility] [address] [id number] [place] [address]36 Apr, [facility] [place] [facility] [address] [facility] [id number] [place] [address]267 Apr, [facility] [place] [facility] [address] [id number] [place] [address] 8393 Apr, [facility] [place] [facility] [address] [id number] [place] [address] 3674 Apr, [facility] [place] [facility] [address] [id number] [place] [address] 73[address] Mar, [facility] [place] [facility] [address] [id number] [place] [address] 6025 Mar, [facility] [place] [facility] [address] [id number], [place] [address] 47[address] Mar, [facility] [place] [facility] [address] [id number] [place] [address] 9730 Mar, [facility] [place] [facility] [address] [facility] [id number], [place] [address] 1380 Feb, [facility] [place] [facility] [address] [id number], [place] [address] 2833 Feb, [facility] [place] [facility] [address] [id number], [place] [address] Feb, [facility] [place] [facility] [address] [id number], [place] [address] 0809 Feb, [facility] [place] [facility] [address] [facility] [id number], [place] [address]- 8[address] Feb, [facility] [place] [facility] [address] [facility] [id number], [place] [address]46 Jan, [facility] [place] [facility] [address] [id number] [place] [address] 0834 Dec, [facility] [place] [facility] [address] [id number] [place] [address]- 7929 Dec, [facility] [place] [facility] [address] [id number] [place] [address]- 2666 Dec, [facility] [place] [facility] [address] [id number] [place] [address] 1383 Nov, [facility] [place] [facility] [address] [id number] [place] [address]- 5996 Nov, [facility] [place] [facility] [address] [id number] [place] [address]- 1217 Nov, [facility] [place] [facility] [address] [id number] [place] [address]- 8015 Oct, [facility] [place] [facility] [address] [id number] [place] [address]- 3759 Oct, [facility] [place] [facility] [address] [id number] [place] [address]- 5936 Oct, [facility] [place] [facility] [address] [id number] [place] [address]- 6457 Oct, [facility] [place] [facility] [address] [id number] [place] [address]- 8228 September, [facility] [place] [facility] [address] [id number] [place] [address]- 2428 September, [facility] [place] [facility] [address] [id number] [place] [address]- 3196 30 Aug, 2011 [facility] [place] [facility] [address] [id number] [place] [address]- 2547 Aug, [facility] [place] [facility] [address] [id number] [place] [address]- 2221 Aug, [facility] [place] [facility] [address] [id number] [place] [address]- 2117 Aug, [facility] [place] [facility] [address] [id number] [place] [address] 2548 Aug, [facility] [address] [id number] [place] [address]- 0367 Aug, [facility] [place] [facility] [address] [id number] [place] [address]- 7286 Aug, [facility] [address] [id number] [place] [address]- 2166 Jul, [facility] [address] [id number] [place] [address]- 4544 Jul, [facility] [address] [id number] [place] [address]- 6416 Jul, [facility] [address] [id number] [place] [address]- 5941 May, [facility] [address] [id number] [place] [address]- 3646 May, [facility] [address] [id number] [place] [address]- 8136 May, [facility] [address] [id number] [place] [address]- 1466 Apr, [facility] [address] [id number] [place] [address]- 9537 Apr, [facility] [address] [id number] [place] [address]- 2759 Mar, [facility] [place] [facility] [address] [id number] [place] [address]- 1306 Mar, [facility] [place] [facility] [address] [id number] [place] [address]- 7116 Mar, [facility] [place] [facility] [address] [id number] [place] [address] 3231 Mar, [facility] [place] [facility] [address] [id number] [place] [address] 2546 Mar, [facility] [address] [facility] [id number], [place] [address] 2546 Mar, [facility] [address] [facility] [id number], [place] [address] 2546 Feb, [facility] [address] [facility] [id number], [place] [address] Feb, [facility] [address] [facility] [id number], [place] [address]- [address] Feb, IMMUNIZATIONS No Known Immunizations SOCIAL HISTORY Never Assessed REASON FOR VISIT Medicare AWV - Initial Visit-Lori HORN PLAN OF CARE Activity Details Follow Up 1 Year Reason: VITAL SIGNS Height 72 in 2017-09-09 Weight 266.5 lbs 2017-09-09 Temperature 98.2 degrees Fahrenheit 2017-09-09 Heart Rate 86 bpm 2017-09-09 Respiratory Rate 20 2017-09-09 Oximetry w/ oxygen @ 2L:96 % 2017-09-09 BMI 36.14 kg/m2 2017-09-09 Blood pressure systolic 142 mmHg 2017-09-09 Blood pressure diastolic 72 mmHg 2017-09-09 MEDICATIONS Medication Instructions Dosage Frequency Start Date End Date Duration Status Lopid 600 TAKE ONE TABLET BY MOUTH TWICE A DAY 30 Active Albuterol Sulfate (2.5 MG/3ML) 0.083% Inhalation Three times a day 3 ml 8h May, Active Celexa 40 TAKE ONE TABLET BY MOUTH DAILY 30 Active Amlodipine Besylate 10 MG TAKE ONE TABLET BY MOUTH DAILY 30 Active Insulin Detemir 100 UNIT/ML Subcutaneous at bedtime 120 u Aug, Active Lyrica 225 Orally Twice a day 1 capsule 12h 30 Active Xanax 1 MG Orally TID PRN 1 tablet May, Active Bactrim DS 800-160 MG Orally Twice a day 1 tablet 12h Active Lantus 100 unit/ml Subcutaneous Once a day 120 UNITS 24h Active Hydrocodone-Acetaminophen 10-325 MG Orally every 6 hrs 1 tablet as needed 6h Jul, 28 days Active AgaMatrix Presto Test - TEST BLOOD SUGAR TWO TIMES A DAY . E11.9 50 Active Cymbalta 60 TAKE ONE CAPSULE BY MOUTH ONCE A DAY 30 Active Remeron 30 TAKE ONE TABLET BY MOUTH EVERY NIGHT AT BEDTIME 90 Active Tizanidine HCl 4 MG Orally Three times a day 1 tablet as needed 8h 16 Jul, 2016 Active Soma 350 mg Orally Once a day 1 tablet as needed 24h Active Atorvastatin Calcium 40 MG TAKE ONE TABLET BY MOUTH DAILY 30 Active Oxygen 2 LPM inhalation at night while sleeping Active Metformin HCl 1,000 TAKE ONE TABLET BY MOUTH EVERY MORNING AND WITH EVENING MEALS TWO TIMES A DAY 30 Active NovoLog Flexpen 100 UNIT/ML Subcutaneous 3 times a day with meals 30 units May, Active Blood Glucose Test Strip as directed Mar, Active MS Contin 30 MG Orally every 8 hours 1 tablet 8h Jul, 28 days Active RESULTS Name Result Date Reference Range CT Scan : Chest, low dose (Screening) 2017-09-17 PROCEDURES Procedure Date Ordered Result Body Site ANNUAL MINDY VST; PERSNL PPS INIT September 09, 2017 FALL RISK ASSESSMENT DOCD September 09, 2017 NEG SCR D PT NOT ELIG F/U/PLN DOC September 09, 2017 PT TOBACCO SCREEN RCVD TLK September 09, 2017 INSTRUCTIONS MEDICATIONS ADMINISTERED No Known Medications [...]
--- NOTE | 2018-05-16 07:03 | ED Chest Pain ---
General Chief Complaint: Chest Wall/Rib Pain Stated Complaint: LFT ARM PAIN;NECK PAIN;SOB Source: patient Exam Limitations: no limitations History of Present Illness Date Seen by Provider: May 16, 2018 Time Seen by Provider: 06:47 Initial Comments Here with report of left neck pain that went to the left arm and shoulder and left side of the jaw. Onset yesterday morning and was of varying intensity but this morning woke up and it was fairly severe. Also this morning is when the pain went to the jaw. Denies nausea, vomiting, weakness or breathing problems. Does have history of degenerative disc disease in the back and neck. Has not had anything like this before. Had heart catheter in September 2016 which showed 50 percent obstruction and multiple areas especially on the right vascular distribution. His normal pain medicines are not working for him. He arrives with low-grade fever but did not realize that. Timing/Duration: 24 hours, getting worse Severity/Quality: moderate, aching Location: other (neck left-sided) Radiation: jaw (left), arms (left), shoulders (left) Activities at Onset: none Prior CP/Workup: cardiac cath Modifying Factors: worse with movement; improves with rest ASA po CLIENT BUSINESS MANAGER: No NTG SL CLIENT BUSINESS MANAGER: No Associated Symptoms: No abdominal pain; back pain (chronic); No diaphoresis, No edema; fever/chills; No nausea/vomiting, No shortness of breath, No weakness Allergies and Home Medications Allergies Coded Allergies: NKANo Known Allergies (Verified Allergy, Unknown, 12/21/05) No Known Drug Allergies (Unverified , 10/19/08) Home Medications Alprazolam 1 Mg Tablet, 1 MG PO TID, (Reported) Amlodipine Besylate 10 Mg Tablet, 10 MG PO DAILY, (Reported) Aspirin 81 Mg Tab.chew, 81 MG PO DAILY, (Reported) Atorvastatin Calcium 40 Mg Tablet, 40 MG PO HS, (Reported) Carisoprodol 350 Mg Tablet, 350 MG PO HS, (Reported) Citalopram Hydrobromide 40 Mg Tablet, 40 MG PO DAILY, (Reported) Duloxetine Hcl 60 Mg Capsule.dr, 60 MG PO HS, (Reported) Gemfibrozil 600 Mg Tablet, 600 MG PO BID, (Reported) Hydrocodone Bit/Acetaminophen 1 Each Tablet, 1 TAB PO Q6H PRN for PAIN-MODERATE, (Reported) Insulin Glargine,Hum.rec.anlog 300 Unit/1 Ml Insuln.pen, 150 UNIT SQ HS, ( Reported) Insulin Lispro 100 Unit/1 Ml Insuln.pen, 30 ML SQ TIDAC, (Reported) Metformin Hcl 1,000 Mg Tablet, 1,000 MG PO BID WITH MEALS, (Reported) Mirtazapine 30 Mg Tablet, 30 MG PO HS, (Reported) Morphine Sulfate 30 Mg Tablet.er, 30 MG PO Q8H, (Reported) Pregabalin 225 Mg Capsule, 225 MG PO BID, (Reported) Patient Home Medication List Home Medication List Reviewed: Yes Review of Systems Review of Systems Constitutional: see HPI; No chills, No fever EENTM: No Symptoms Reported Respiratory: Denies Cough; Shortness of Air, Wheezing Cardiovascular: Chest Pain (shoulder area); Denies Edema, Denies Palpitations Gastrointestinal: No Symptoms Reported Genitourinary: No Symptoms Reported Musculoskeletal: see HPI, back pain, muscle pain; No muscle weakness; neck pain Skin: lesions (psoriasis) Psychiatric/Neurological: No Symptoms Reported Endocrine: No Symptoms Reported All Other Systems Reviewed Negative Unless Noted: Yes Past Mfordhr-Roypxx-Kgqltk Hx Past Med/Social Hx: Reviewed Nursing Past Med/Soc Hx Patient Social History Alcohol Use: Denies Use Recreational Drug Use: No Drug of Choice: cannibus oil Smoking Status: Current Everyday Smoker Type Used: Electronic/Vapor (continues to use vape) Former Smoker, Quit: September 29, 2013 2nd Hand Smoke Exposure: Yes Recent Foreign Travel: No Contact w/Someone Who Travel: No Recent Hopitalizations: No Immunizations Up To Date Tetanus Booster (TDap): Unknown Date of Pneumonia Vaccine: Feb 29, 2012 Date of Influenza Vaccine: Mar 13, 2016 Seasonal Allergies Seasonal Allergies: Yes Past Medical History Surgeries: Yes (BACK, KNEE, SHOULDER, RT FOOT OSTEOMYELITIS REMOVAL, LPJ) Orthopedic Respiratory: Yes Pneumonia, COPD Cardiac: Yes High Cholesterol, Hypertension Neurological: Yes Neuropathy Reproductive Disorders: No Sexually Transmitted Disease: No Genitourinary: No Gastrointestinal: No Musculoskeletal: Yes (OSTEOMYELITIS RT FOOT) Degenerate Disk Disease, Arthritis, Back Injury, Chronic Back Pain Endocrine: Yes Diabetes, Insulin dep Loss of Vision: Bilateral Hearing Impairment: Denies Cancer: No Psychosocial: Yes Sleep Difficulties, Anxiety Integumentary: Yes Eczema Blood Disorders: No Family Medical History Reviewed Nursing Family Hx Physical Exam Vital Signs Vital Signs - First Documented 05/16/18 05/16/18 06:47 07:05 Temp 99.8 Pulse 81 Resp 20 B/P (MAP) 148/74 (98) Pulse Ox 97 O2 Delivery Room Air O2 Flow Rate 2.00 FiO2 89 Capillary Refill : Height, Weight, BMI Height: 6'1.00" Weight: 264lbs. 0.0oz. 119.546711jk; 34.7 BMI Method:Stated General Appearance: Chronically ill, Mild Distress HEENT: PERRL/EOMI, Pharynx Normal Neck: Non Tender, Supple Respiratory: No Accessory Muscle Use, No Respiratory Distress, Wheezing (a few trace wheezes) Cardiovascular: Regular Rate, Rhythm, No Murmur Gastrointestinal: Non Tender, Soft Extremity: Normal Inspection, Normal Range of Motion Neurologic/Psychiatric: Alert, Oriented x3 Skin: Normal Color, Warm/Dry Focused Exam Lactate Level 05/16/18 07:05: Lactic Acid Level 1.27 Lactic Acid Level Laboratory Tests Test 05/16/18 07:05 Lactic Acid Level 1.27 MMOL/L (0.50-2.00) Progress/Results/Core Measures Results/Orders Lab Results Laboratory Tests Test 05/16/18 07:05 05/16/18 09:25 Range/Units White Blood Count 9.6 4.3-11.0 10^3/uL Red Blood Count 4.01 L 4.35-5.85 10^6/uL Hemoglobin 12.3 L 13.3-17.7 G/DL Hematocrit 38 L 40-54 % Mean Corpuscular Volume 95 80-99 FL Mean Corpuscular Hemoglobin 31 25-34 PG Mean Corpuscular Hemoglobin Concent 33 32-36 G/DL Red Cell Distribution Width 13.0 10.0-14.5 % Platelet Count 233 130-400 10^3/uL Mean Platelet Volume 9.6 7.4-10.4 FL Neutrophils (%) (Auto) 78 H 42-75 % Lymphocytes (%) (Auto) 11 L 12-44 % Monocytes (%) (Auto) 10 0-12 % Eosinophils (%) (Auto) 1 0-10 % Basophils (%) (Auto) 0 0-10 % Neutrophils # (Auto) 7.5 1.8-7.8 X 10^3 Lymphocytes # (Auto) 1.1 1.0-4.0 X 10^3 Monocytes # (Auto) 1.0 0.0-1.0 X 10^3 Eosinophils # (Auto) 0.1 0.0-0.3 10^3/uL Basophils # (Auto) 0.0 0.0-0.1 10^3/uL Prothrombin Time 13.8 12.2-14.7 SEC INR Comment 1.1 0.8-1.4 Activated Partial Thromboplast Time 41 H 24-35 SEC D-Dimer 0.47 0.00-0.49 UG/ML Sodium Level 138 135-145 MMOL/L Potassium Level 4.1 3.6-5.0 MMOL/L Chloride Level 99 98-107 MMOL/L Carbon Dioxide Level 27 21-32 MMOL/L Anion Gap 12 5-14 MMOL/L Blood Urea Nitrogen 16 7-18 MG/DL Creatinine 0.83 0.60-1.30 MG/DL Estimat Glomerular Filtration Rate > 60 BUN/Creatinine Ratio 19 Glucose Level 221 H 70-105 MG/DL Lactic Acid Level 1.27 0.50-2.00 MMOL/L Calcium Level 9.6 8.5-10.1 MG/DL Corrected Calcium 9.2 8.5-10.1 MG/DL Magnesium Level 1.8 1.8-2.4 MG/DL Total Bilirubin 0.5 0.1-1.0 MG/DL Aspartate Amino Transf (AST/SGOT) 21 5-34 U/L Alanine Aminotransferase (ALT/SGPT) 24 0-55 U/L Alkaline Phosphatase 119 40-136 U/L Myoglobin 40.2 44.2 10.0-92.0 NG/ML Troponin I < 0.30 < 0.30 <0.30 NG/ML Total Protein 8.3 H 6.4-8.2 GM/DL Albumin 4.5 3.2-4.5 GM/DL My Orders Orders - JAME CROWLEY MD Cbc With Automated Diff (05/16/18 06:52) Magnesium (05/16/18 06:52) Chest 1 View, Ap/Pa Only (05/16/18 06:52) Ekg Tracing (05/16/18 06:52) Cardiac Profile 1 (05/16/18 06:52) Comprehensive Metabolic Panel (05/16/18 06:52) Myoglobin Serum (05/16/18 06:52) Protime With Inr (05/16/18 06:52) Partial Thromboplastin Time (05/16/18 06:52) O2 (05/16/18 06:52) Monitor-Rhythm Ecg Trace Only (05/16/18 06:52) Lipid Panel (05/17/18 06:00) Aspirin Chewable Tablet (Baby Aspirin Ch (05/16/18 07:00) Saline Lock/Iv-Start (05/16/18 06:52) Fibrin Degradation Products (05/16/18 06:52) Morphine Injection (Morphine Injection (05/16/18 06:56) Lactic Acid Analyzer (05/16/18 07:03) Blood Culture (05/16/18 07:03) Albuterol/Ipra Inhalation Soln (Duoneb I (05/16/18 07:15) Svn Small Volume Nebulizer (05/16/18 07:03) Ketorolac Injection (Toradol Injection) (05/16/18 07:56) Troponin I (05/16/18 09:22) Myoglobin Serum (05/16/18 09:22) Ekg Tracing (05/16/18 09:22) Medications Given in ED Current Medications Medications Dose Ordered Sig/Fredis Route Start Time Stop Time Status Last Admin Dose Admin Albuterol/ Ipratropium 3 ml ONCE ONCE INH 05/16/18 07:15 05/16/18 07:16 DC 05/16/18 07:39 3 ML Aspirin 324 mg ONCE ONCE PO 05/16/18 07:00 05/16/18 07:01 DC 05/16/18 07:30 324 MG Vital Signs/I&O 05/16/18 05/16/18 05/16/18 06:47 07:05 07:39 Temp 99.8 Pulse 81 Resp 20 B/P (MAP) 148/74 (98) Pulse Ox 97 94 96 O2 Delivery Room Air Nasal Cannula Nasal Cannula O2 Flow Rate 2.00 5.00 FiO2 89 Progress Progress Note : Progress Note Seen and evaluated. IV, labs, EKG and chest x-ray ordered. ASA 324 mg by mouth ordered. Morphine 10 mg IV. I have reviewed the previous medical history including previous heart catheter. Monitor patient. Toradol 30 mg IV given. Monitor patient. 0855: Pain is much improved. Initial set negative. We will repeat EKG and cardiac enzymes. 1010: Repeat testing negative. Patient remains improved. Does appear to be emanating from his neck and not a heart event. Discharged home with return precautions. Patient verbalize understanding instructions and agreement with plan. Initial ECG Impression Date: May 16, 2018 Initial ECG Impression Time: 06:58 Initial ECG Rate: 81 Initial ECG Rhythm: Normal Sinus Initial ECG Comparisson: Unchanged Comment Sinus rhythm with incomplete bundle branch block. Normal axis. No evidence of ST elevation CT. Similar to 13 June 2014. Interpreted by me. EKG : EKG Time: 09:26 Rate: 76 Rhythm: Normal Sinus Comment Sinus rhythm with normal axis. No evidence of ST elevation CT. Similar to previous earlier today. Interpreted by me. Diagnostic Imaging Diagonstic Imaging: Xray Plain Films/CT/US/NM/MRI: chest Comments [facility] [place] NAME: PETEY RODRIGUEZ [facility] REC#: [id number] PT STATUS: REG ER : 1960 PHYSICIAN: JAME CROWLEY MD ADMIT DATE: 05/16/18/ER Draft Date of Exam:05/16/18 CHEST 1 VIEW, AP/PA ONLY Indication: Left-sided chest pain. Comparison: 10/13/2017. Findings: Single view of the chest demonstrates clear lungs bilaterally. The heart is normal. There is no pneumothorax. The osseous structures are normal. Impression: Negative chest. Dictated on workstation # [id number] Dict: 05/16/18 0735 Trans: 05/16/18 0738 [facility] [id number] Interpreted by: LIDYA GORDON Electronically signed by: Departure Impression Primary Impression: Neck pain, acute Disposition: 01 HOME, SELF-CARE Condition: Improved Departure-Patient Inst. Decision time for Depature: 10:12 Referrals: [facility] FERNY SILVERIO MD (PCP/Family) Primary Care Physician Patient Instructions: Generalized Neck Pain (DC), Radiculopathy (DC) Add. Discharge Instructions: All discharge instructions reviewed with patient and/or family. Voiced understanding. Continue medications as previously prescribed. Follow up with your DrDamaris in one to 2 days for recheck and further evaluation. Follow-up with your heart doctor within one week for recheck and further evaluation. Return for worse pain, fever, vomiting, weakness, breathing problems or other concerns as needed. JAME CROWLEY MD May 16, 2018 07:03
--- OUTSIDE RECORDS SUMMARY | 2018-05-16 07:03 | XMS REPORT ---
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 Name Role Phone FERNY SILVERIO Unavailable PROBLEMS Type Condition ICD9-CM Code DIU48-YW Code Onset Dates Condition Status SNOMED Code Problem Hypoxia R09.02 Active 248488202 Problem Port catheter in place Z95.828 Active 227939684 Problem Anxiety F41.9 Active 57153797 Problem Type 2 diabetes mellitus with diabetic peripheral angiopathy without gangrene E11.51 Active 560933322 Problem Pressure ulcer of other site, stage 3 L89.893 Active 296862325 Problem Lumbar radiculopathy, chronic M54.16 Active 352408743 Problem PAD (peripheral artery disease) I73.9 Active 788757466 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 Active 530729080 Problem Recurrent major depressive disorder, in full remission F33.42 Active 704685986 Problem Diabetes E11.9 Active 04072601 Problem Hypertension I10 Active 11704369 Problem Back pain M54.9 Active 462419265 Problem Insulin long-term use Z79.4 Active 578816924 Problem COPD (chronic obstructive pulmonary disease) J44.9 Active 89026672 ALLERGIES No Information ENCOUNTERS Encounter Location Date Diagnosis [place] [id number] [place] [address] 32798- 3624 Nov, Back pain M54.9 and Anxiety F41.9 [facility] [id number] [place] [address] 32580- 7798 Oct, [place] [address] [place] [id number] [place] [address] 66055- 3225 Oct, Back pain M54.9 and Anxiety F41.9 [place] [address] [place] [id number] [place] [address] 40597- 8143 September, Anxiety F41.9 and Back pain M54.9 [place] [address] [place] [id number] [place] [address] 20066- 2665 September, Diabetes E11.9 ; Hypertension I10 ; COPD (chronic obstructive pulmonary disease) J44.9 and Lumbar radiculopathy, chronic M54.16 [place] [address] [place] [id number] [place] [address] 39124- 0503 September, Anxiety F41.9 [place] [address] 36241- 2002 Aug, [place] [address] 75001- 2876 Aug, [place] [address] 44900- 4205 Aug, Anxiety F41.9 and Back pain M54.9 [place] [address] [place] [id number] [place] [address] 58408- 0134 Aug, Medicare annual wellness visit, initial Z00.00 ; COPD ( chronic obstructive pulmonary disease) J44.9 ; PAD (peripheral artery disease) I73.9 ; Insulin long-term use Z79.4 ; Hypertension I10 ; Anxiety F41.9 ; Recurrent major depressive disorder, in full remission F33.42 ; Pressure ulcer of other site, stage 3 L89.893 ; Type 2 diabetes mellitus with diabetic peripheral angiopathy without gangrene E11.51 and 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 [place] [id number] [place] [address] 48998- 6841 Jul, Back pain M54.9 [place] [address] 98977- 1045 Jul, [place] [address] [place] [id number] [place] [address] 62995- 9394 Jul, Anxiety F41.9 and Back pain M54.9 [place] [address] [place] [id number] [place] [address] 41536- 0074 Jul, Diabetes E11.9 [facility] [address] [place] [address] [id number] [place] [address] 62781- 6564 May, [facility] [address] [place] [address] [id number] [place] [address] 64140- 5676 May, Diabetes E11.9 ; Anxiety F41.9 ; Back pain M54.9 and COPD ( chronic obstructive pulmonary disease) J44.9 [facility] [address] [place] [id number] [place] [address] 59399- 3000 May, Back pain M54.9 [facility] [address] 48268- 7073 May, [facility] [address] [place] [address] [id number] [place] [address] 76564- 5968 Apr, Back pain M54.9 [facility] [address] [address] [id number] [place] [address] 29920- 2760 Mar, Back pain M54.9 [facility] [address] [place] [address] [id number] [place] [address] 12036- 6667 Mar, [facility] [address] [place] [id number] [place] [address] 50998- 1848 16 Mar, 2017 [facility] [address] [address] [id number] [place] [address] 97426- 0895 14 Mar, 2017 Radiculopathy of lumbar region M54.16 [facility] [address] [place] [id number] [place] [address] 27311- 1943 13 Mar, 2017 [facility] [address] [place] [address] [id number] [place] [address] 79381- 2126 07 Mar, 2017 Encounter for immunization Z23 and Lumbar radiculopathy, chronic M54.16 [facility] [address] [place] [address] [id number] [place] [address] 56163- 5176 Mar, Back pain M54.9 and Anxiety F41.9 [facility] [address] [address] 10 Feb, 2017 Acute bilateral low back pain with left-sided sciatica M54.42 and Acute bilateral low back pain with right-sided sciatica M54.41 [facility] [address] [place] [id number] [place] [address] 41145- 5463 Feb, [facility] [address] [place] [id number] [place] [address] 77108- 4941 Feb, Back pain M54.9 [facility] [address] [place] [id number] [place] [address] 61506- 7168 05 Jan, 2017 Back pain M54.9 and Anxiety F41.9 [facility] [address] [place] [id number] [place] [address] 48696- 1433 05 Jan, 2017 Diabetes E11.9 [facility] [address] [place] [id number] [place] [address] 02022- 1142 Dec, Diabetes E11.9 ; Back pain M54.9 ; Anxiety F41.9 and Insulin long-term use Z79.4 [facility] [address] [place] [id number] [place] [address] 55417- 3158 Dec, Anxiety F41.9 [facility] [address] [place] [id number] [place] [address] 89188- 2333 Dec, Back pain M54.9 [facility] [address] [place] [id number] [place] [address] 38455- 3283 Nov, Back pain M54.9 [facility] [address] [place] [id number] [place] [address] 15914- 7806 Oct, Back pain M54.9 and Anxiety F41.9 [facility] [address] [place] [id number] [place] [address] 78257- 8743 September, Back pain M54.9 [facility] [address] [place] [address] [id number] [place] [address] 36051- 0240 September, Back pain M54.9 and Anxiety F41.9 [facility] [address] [place] [address] [id number] [place] [address] 73306- 6636 Aug, Diabetes E11.9 ; Anxiety F41.9 ; Back pain M54.9 and PAD ( peripheral artery disease) I73.9 [facility] [address] [place] [address] [id number] [place] [address] 37106- 9736 19 Aug, 2016 Anxiety F41.9 [facility] [address] 60348- 7106 14 Aug, 2016 Back pain M54.9 [facility] [address] 08079- 5946 Jul, Back pain M54.9 [facility] [address] [place] [id number] [place] [address] 50403- 1426 Jul, Back pain M54.9 [facility] [address] 65941- 7371 Jul, Back pain M54.9 [facility] [address] 27524- 4951 16 Jul, 2016 Dorsalgia M54.9 [facility] [address] [place] [id number] [place] [address] 27742- 6328 14 Jul, 2016 [facility] [address] [place] [id number] [place] [address] 35890- 1963 May, Back pain M54.9 [facility] [address] [place] [id number] [place] [address] 50498- 8551 May, Diabetes E11.9 ; Anxiety F41.9 ; Port catheter in place Z95.828 ; Encounter for immunization Z23 and Insulin long-term use Z79.4 [facility] [address] [place] [id number] [place] [address] 11157- 3371 Apr, Back pain M54.9 [facility] [address] 88970- 4300 Apr, Back pain M54.9 [facility] [address] [place] [id number] [place] [address] 76760- 2624 Apr, [facility] [address] [place] [id number] [place] [address] 96583- 9907 Apr, Back pain M54.9 [facility] [address] [place] [id number] [place] [address] 92422- 7447 Mar, COPD (chronic obstructive pulmonary disease) J44.9 [facility] [address] [place] [id number] [place] [address] 72922- 3094 Feb, [facility] [address] [place] [address] [id number] [place] [address] 04556- 3863 30 Jan, 2016 [facility] [address] [place] [address] [id number] [place] [address] 79480- 2755 Jan, [facility] [address] 71240- 3464 Jan, [facility] [address] [place] [id number] [place] [address] 40621- 9418 Jan, [facility] [address] [place] [address] [id number] [place] [address] 54459- 7117 Dec, Diabetes E11.9 ; Hypoxia R09.02 and Back pain M54.9 [facility] [address] [place] [address] [id number] [place] [address] 08907- 8119 Dec, [facility] [address] [place] [address] [id number] [place] [address] 19842- 4495 Nov, [facility] [address] [place] [address] [id number] [place] [address] 47945- 0062 Oct, Anxiety F41.9 [facility] [address] [place] [address] [id number] [place] [address] 67347- 3637 Oct, Back pain M54.9 [facility] [address] [place] [address] [id number] [place] [address] 48955- 8203 September, Back pain M54.9 [facility] [address] [place] [address] 98168- 2053 September, Diabetes E11.9 [facility] [address] [place] [id number] [place] [address] 05535- 8068 September, [facility] [address] [place] [id number] [place] [address] 69831- 7047 September, Diabetes E11.9 ; Insulin long-term use Z79.4 and Back pain M54.9 [facility] [address] [place] [id number] [place] [address] 80371- 1213 Aug, Back pain M54.9 [facility] [address] [place] [id number] [place] [address] 80472- 7494 Aug, Back pain M54.9 ; Anxiety F41.9 and Arthropathy, unspecified M12.9 [facility] [address] [place] [id number] [place] [address] 88733- 0062 Jul, Back pain M54.9 [facility] [address] [place] [id number] [place] [address] 58817- 8649 Jul, Anxiety F41.9 [facility] [address] [place] [id number] [place] [address] 55116- 4876 Jul, Back pain M54.9 [facility] [address] [place] [id number] [place] [address] 64790- 8827 Jul, [facility] [address] [place] [address] [id number] [place] [address] 91924- 8560 Jul, [facility] [address] [place] [address] [id number] [place] [address] 87985- 6899 May, Back pain M54.9 ; Diabetes E11.9 ; Insulin long-term use Z79.4 ; COPD (chronic obstructive pulmonary disease) J44.9 and Hypertension I10 [facility] [address] [place] [id number] [place] [address] 75134- 1741 May, Chronic pain G89.29 [facility] [address], [place] [address]- 2272 Apr, [facility] [address] [place] [id number] [place] [address] 52929- 5762 Apr, [facility] [address] [place] [id number] [place] [address] 93777- 4971 Mar, [facility] [address] [place] [address] [id number] [place] [address] 20137- 5988 Mar, Encounter for immunization Z23 and Diabetes E11.9 [facility] [address] [place] [address] [id number] [place] [address] 62548- 8941 Feb, [facility] [address] [place] [id number] [place] [address] 58642- 9594 Feb, [facility] [address] [id number] [place] [address] 24187- 3381 Jan, [facility] [address] [place] [id number] [place] [address] 87489- 6515 Jan, [facility] [address] [place] [address] [id number] [place] [address] 41575- 6257 Dec, [facility] [address], [place] [address]- 1517 Dec, [facility] [address] [place] [address] 89066- 1159 Dec, Unspecified arthropathy, site unspecified 716.90 and Diabetes mellitus type 2, uncontrolled 250.02 [facility] [address], [place] [address]- 4289 Dec, [facility] [address] [place] [id number] [place] [address] 99693- 7133 Nov, [facility] [address], [place] [address]- 7419 Oct, [facility] [address] [place] [address] [place] [address]- 4671 September, [facility] [place] [facility] [address] [id number] [place] [address]- 0418 September, [facility] [place] [facility] [address] [id number] [place] [address]- 6196 September, [facility] [place] [facility] [address] [id number] [place] [address]- 9038 September, [facility] [place] [facility] [address] [id number] [place] [address]- 0218 14 Aug, 2014 [facility] [place] [facility] [address] [id number] [place] [address]- 4355 13 Aug, 2014 [facility] [place] [facility] [address] [id number] [place] [address]- 4509 18 Jul, 2014 [facility] [place] [facility] [address] [id number] [place] [address]- 2849 18 Jul, 2014 [facility] [place] [facility] [address] [id number] [place] [address]- 2238 16 Jul, 2014 [facility] [place] [facility] [address] [id number] [place] [address]- 7842 16 Jul, 2014 [facility] [place] [facility] [address] [id number] [place] [address]- 5229 16 Jul, 2014 [facility] [place] [facility] [address] [id number] [place] [address]- 5032 16 Jul, 2014 [facility] [place] [facility] [address] [id number] [place] [address]- 6277 16 Jul, 2014 [facility] [place] [facility] [address] [id number] [place] [address]- 1247 16 Jul, 2014 [facility] [place] [facility] [address] [id number] [place] [address]- 4197 16 Jul, 2014 [facility] [place] [facility] [address] [id number] [place] [address]- 8655 13 Jul, 2014 [facility] [place] [facility] [address] [id number] [place] [address]- 1762 Jul, 2014 [facility] [place] [facility] [address] [id number] [place] [address]- 6637 Jul, 2014 [facility] [place] [facility] [address] [id number] [place] [address]- 0246 Jul, 2014 [facility] [place] [facility] [address] [id number] [place] [address]- 0945 17 Jul, 2014 [facility] [place] [facility] [address] [id number] [place] [address]- 2700 17 Jul, 2014 [facility] [place] [facility] [address] [id number] [place] [address]- 6317 16 Jul, 2014 [facility] [place] [facility] [address] [id number] [place] [address]- 0162 16 Jul, 2014 [facility] [place] [facility] [address] [id number] [place] [address]- 3299 16 Jul, 2014 [facility] [place] [facility] [address] [id number] [place] [address]- 5367 16 Jul, 2014 [facility] [place] [facility] [address] [id number] [place] [address]- 1698 16 Jul, 2014 [facility] [place] [facility] [address] [id number] [place] [address]- 7983 16 Jul, 2014 [facility] [place] [facility] [address] [id number] [place] [address]- 0765 16 Jul, 2014 [facility] [place] [facility] [address] [id number] [place] [address]- 5789 16 Jul, 2014 [facility] [place] [facility] [address] [id number] [place] [address]- 7177 16 Jul, 2014 [facility] [place] [facility] [address] [id number] [place] [address]- 6196 16 Jul, 2014 [facility] [place] [facility] [address] [id number] [place] [address]- 6025 16 Jul, 2014 [facility] [place] [facility] [address] [id number] [place] [address]- 1475 Jul, 2014 [facility] [place] [facility] [address] [id number] [place] [address]- 9246 Jul, 2014 [facility] [place] [facility] [address] [id number] [place] [address]- 0725 Jul, [facility] [place] [facility] [address] [id number] [place] [address]- 0384 May, [facility] [place] [facility] [address] [id number] [place] [address]- 7603 May, [facility] [place] [facility] [address] [id number] [place] [address]- 9245 May, [facility] [place] [facility] [address] [id number] [place] [address]- 9891 May, [facility] [place] [facility] [address] [id number] [place] [address]- 8408 May, [facility] [place] [facility] [address] [id number] [place] [address]- 0092 May, [facility] [place] [facility] [address] [id number] [place] [address]- 3397 May, [facility] [place] [facility] [address] [id number] [place] [address]- 8282 May, [facility] [place] [facility] [address] [id number] [place] [address]- 4241 May, [facility] [place] [facility] [address] [id number] [place] [address]- 5192 May, [facility] [place] [facility] [address] [id number] [place] [address]- 8697 Apr, [facility] [place] [facility] [address] [id number] [place] [address]- 8247 Apr, [facility] [place] [facility] [address] [id number] [place] [address]- 5010 Apr, [facility] [place] [facility] [address] [id number] [place] [address]- 2789 Apr, [facility] [place] [facility] [address] [facility] [id number] [place] 1043 Apr, [facility] [place] [facility] [address] [id number] [place] [address]- 1819 Apr, [facility] [place] [facility] [address] [id number] [place] [address]- 7353 Mar, [facility] [place] [facility] [address] [id number] [place] [address]- 4848 Mar, [facility] [place] [facility] [address] [id number] [place] [address]- 7172 Mar, [facility] [place] [facility] [address] [id number], [place] [address]- 5736 Mar, [facility] [place] [facility] [address] [id number] [place] [address]- 6320 Mar, [facility] [place] [facility] [address] [id number] [place] [address]- 3922 Mar, [facility] [place] [facility] [address] [id number], [place] [address]- 4369 Mar, [facility] [place] [facility] [address] [id number], [place] [address]- 9190 Mar, [facility] [place] [facility] [address] [id number] [place] [address]- 4238 Mar, [facility] [place] [facility] [address] [id number], [place] [address]- 2552 Mar, [facility] [place] [facility] [address] [id number], [place] [address]- 6797 Mar, [facility] [place] [facility] [address] [id number] [place] [address]- 1643 30 Feb, 2014 [facility] [place] [facility] [address] [id number] [place] [address]- 0882 30 Feb, 2014 [facility] [place] [facility] [address] [id number] [place] [address]- 2026 Feb, [facility] [place] [facility] [address] [id number] [place] [address]- 3004 Feb, [facility] [place] [facility] [address] [id number] [place] [address]- 6142 Feb, [facility] [place] [facility] [address] [id number] [place] [address]- 0556 Feb, [facility] [place] [facility] [address] [id number] [place] [address] Feb, [facility] [place] [facility] [address] [id number] [place] [address] Feb, [facility] [place] [facility] [address] [id number] [place] [address] Feb, [facility] [place] [facility] [address] [id number] [place] [address] Feb, [facility] [place] [facility] [address] [id number] [place] [address] 22 Jan, 2014 [facility] [place] [facility] [address] [id number] [place] [address] 22 Jan, 2013 [facility] [place] [facility] [address] [id number] [place] [address] 16 Jan, 2013 [facility] [place] [facility] [address] [id number] [place] [address] 16 Sep, 2013 [facility] [place] [facility] [address] [id number] [place] [address] 12 Jan, 2013 [facility] [place] [facility] [address] [id number] [place] [address] Jan, [facility] [place] [facility] [address] [id number] [place] [address] Jan, [facility] [place] [facility] [address] [id number] [place] [address] Dec, [facility] [place] [facility] [address] [id number] [place] [address]- [address] Dec, [facility] [place] [facility] [address] [id number] [place] [address] Dec, [facility] [place] [facility] [address] [id number] [place] [address] Dec, [facility] [place] [facility] [address] [id number] [place] [address] Dec, [facility] [place] [facility] [address] [id number] [place] [address] Dec, [facility] [place] [facility] [address] [id number] [place] [address] Dec, [facility] [place] [facility] [address] [id number] [place] [address] Dec, [facility] [place] [facility] [address] [id number] [place] [address] Oct, [facility] [place] [facility] [address] [id number] [place] [address] Oct, [facility] [place] [facility] [address] [id number] [place] [address] September, [facility] [place] [facility] [address] [id number] [place] [address] September, [facility] [place] [facility] [address] [id number] [place] [address] September, [facility] [place] [facility] [address] [id number] [place] [address] September, [facility] [place] [facility] [address] [id number] [place] [address] September, [facility] [place] [facility] [address] [id number] [place] [address] September, [facility] [place] [facility] [address] [id number] [place] [address] September, [facility] [place] [facility] [address] [id number] [place] [address] Aug, [facility] [place] [facility] [address] [id number] [place] [address] Aug, [facility] [place] [facility] [address] [id number] [place] [address] Jul, [facility] [place] [facility] [address] [id number] [place] [address] 24 Jul, 2013 [facility] [place] [facility] [address] [id number] [place] [address]- [address] Jul, [facility] [place] [facility] [address] [id number] [place] [address]- [address] Jul, [facility] [place] [facility] [address] [id number] [place] [address]- [address] 14 Jul, 2013 [facility] [place] [facility] [address] [id number] [place] [address]- [address] 14 Jul, 2013 [facility] [place] [facility] [address] [id number] [place] [address] Jul, [facility] [place] [facility] [address] [id number] [place] [address] Jul, [facility] [place] [facility] [address] [id number] [place] [address] May, [facility] [place] [facility] [address] [id number] [place] [address] 134[address] May, [facility] [place] [facility] [address] [id number] [place] [address] May, [facility] [place] [facility] [address] [id number] [place] [address]- [address] 14 May, 2013 [facility] [place] [facility] [address] [id number] [place] [address] 18 Apr, 2013 [facility] [place] [facility] [address] [id number] [place] [address] Mar, [facility] [place] [facility] [address] [id number] [place] [address] Mar, [facility] [place] [facility] [address] [id number] [place] [address] Mar, [facility] [place] [facility] [address] [id number] [place] [address]- [address] Mar, [facility] [place] [facility] [address] [id number] [place] [address] Mar, [facility] [place] [facility] [address] [id number] [place] [address] Mar, [facility] [place] [facility] [address] [id number] [place] [address] Mar, [facility] [place] [facility] [address] [id number] [place] [address] 18 Mar, 2013 [facility] [place] [facility] [address] [id number] [place] [address] Mar, [facility] [place] [facility] [address] [id number], [place] [address] Mar, [facility] [place] [facility] [address] [id number] [place] [address] Mar, [facility] [place] [facility] [address] [id number] [place] [address] 04 Mar, 2013 [facility] [place] [facility] [address] [id number], [place] [address] 15 Feb, 2013 [facility] [place] [facility] [address] [id number], [place] [address] Feb, [facility] [place] [facility] [address] [id number] [place] [address] Feb, [facility] [place] [facility] [address] [id number] [place] [address] Feb, [facility] [place] [facility] [address] [id number] [place] [address] Feb, [facility] [place] [facility] [address] [id number] [place] [address] Jan, [facility] [place] [facility] [address] [id number] [place] [address] Dec, [facility] [place] [facility] [address] [id number] [place] [address] Dec, [facility] [place] [facility] [address] [id number] [place] [address] Dec, [facility] [place] [facility] [address] [id number] [place] [address] Nov, [facility] [place] [facility] [address] [id number] [place] [address] Nov, [facility] [place] [facility] [address] [id number] [place] [address] Nov, [facility] [place] [facility] [address] [id number] [place] [address] Oct, [facility] [place] [facility] [address] [id number] [place] [address] Oct, [facility] [place] [facility] [address] [id number] [place] [address] Oct, [facility] [place] [facility] [address] [id number] [place] [address] September, [facility] [place] [facility] [address] [id number] [place] [address] September, [facility] [place] [facility] [address] [id number] [place] [address] 14 Sep, 2012 [facility] [address] [id number] [place] [address] September, [facility] [address] [id number] [place] [address] September, [facility] [address] [id number] [place] [address] Aug, [facility] [address] [id number] [place] [address] Aug, [facility] [address] [id number] [place] [address] Aug, [facility] [address] [id number] [place] [address] Jul, [facility] [address] [id number] [place] [address] Jul, [facility] [address] [id number] [place] [address] Jul, [facility] [address] [id number] [place] [address] Jul, [facility] [address] [id number] [place] [address] Jul, [facility] [address] [id number] [place] [address] Jul, [facility] [address] [id number] [place] [address] Jul, [facility] [address] [id number] [place] [address] May, [facility] [address] [id number] [place] [address] May, [facility] [address] [id number] [place] [address] May, [facility] [place] [facility] [address] [id number] [place] [address] Apr, [facility] [place] [facility] [address] [id number] [place] [address] Apr, [facility] [place] [facility] [address] [id number] [place] [address] Apr, [facility] [place] [facility] [address] [id number] [place] [address] Apr, [facility] [place] [facility] [address] [id number] [place] [address] Apr, [facility] [place] [facility] [address] [id number] [place] [address] Mar, [facility] [place] [facility] [address] [id number] [place] [address] Mar, [facility] [place] [facility] [address] [id number], [place] [address] Mar, [facility] [place] [facility] [address] [id number] [place] [address] Mar, [facility] [place] [facility] [address] [id number], [place] [address] Feb, [facility] [place] [facility] [address] [id number], [place] [address] Feb, [facility] [place] [facility] [address] [id number], [place] [address] Feb, [facility] [place] [facility] [address] [id number], [place] [address] Feb, [facility] [place] [facility] [address] [id number], [place] [address] Feb, [facility] [place] [facility] [address] [facility] [id number], [place] [address] Jan, [facility] [place] [facility] [address] [id number] [place] [address] Dec, [facility] [place] [facility] [address] [id number] [place] [address] 99[address] Dec, [facility] [place] [facility] [address] [id number] [place] [address] Dec, [facility] [place] [facility] [address] [id number] [place] [address] Nov, [facility] [place] [facility] [address] [id number] [place] [address] 35[address] Nov, [facility] [place] [facility] [address] [id number] [place] [address] 6[address] Nov, [facility] [place] [facility] [address] [id number] [place] [address] 228[address] Oct, [facility] [place] [facility] [address] [id number] [place] [address]40 Oct, [facility] [place] [facility] [address] [id number] [place] [address] 10[address] Oct, [facility] [place] [facility] [address] [id number] [place] [address] Oct, [facility] [place] [facility] [address] [id number] [place] [address] September, [facility] [place] [facility] [address] [id number] [place] [address] September, [facility] [place] [facility] [address] [id number] [place] [address]- [address]80 30 Aug, 2011 [facility] [place] [facility] [address] [id number] [place] [address]- [address] 23 Aug, 2011 [facility] [place] [facility] [address] [id number] [place] [address]- 3027 Aug, [facility] [place] [facility] [address] [id number] [place] [address]- 8208 Aug, [facility] [place] [facility] [address] [id number] [place] [address]- 8284 Aug, [facility] [place] [facility] [address] [id number] [place] [address]- 75[address] Aug, [facility] [place] [facility] [address] [id number] [place] [address]- 9[address] Aug, [facility] [place] [facility] [address] [id number] [place] [address]- 98[address] Jul, [facility] [place] [facility] [address] [id number] [place] [address]- [address]256 Jul, [facility] [place] [facility] [address] [id number] [place] [address]- 1591 Jul, [facility] [place] [facility] [address] [id number] [place] [address]- 2530 May, [facility] [address] [id number] [place] [address] 39[address] May, [facility] [place] [facility] [address] [id number] [place] [address]- [address] May, [facility] [address] [id number] [place] [address] Apr, [facility] [place] [facility] [address] [id number] [place] [address]- 8627 Apr, [facility] [place] [facility] [address] [id number] [place] [address]- 3[address] Mar, [facility] [place] [facility] [address] [id number] [place] [address]- 0501 Mar, [facility] [place] [facility] [address] [id number] [place] [address]- 3093 Mar, [facility] [place] [facility] [address] [id number] [place] [address]- 6648 Mar, [facility] [place] [facility] [address] [id number] [place] [address] Mar, [facility] [address] [facility] [id number] [place] [address]- [address] Mar, [facility] [address] [facility] [id number], [place] [address] Feb, [facility] [address] [facility] [id number], [place] [address] Feb, [facility] [address] [facility] [id number], [place] [address] Feb, IMMUNIZATIONS No Known Immunizations SOCIAL HISTORY Never Assessed REASON FOR VISIT Hydrocodone, Morphine, and Soma- 08/20 PLAN OF CARE VITAL SIGNS MEDICATIONS Medication Instructions Dosage Frequency Start Date End Date Duration Status MS Contin 30 MG Orally every 8 hours 1 tablet 8h Jul, 28 days Active Soma 350 mg Orally Once a day 1 tablet as needed 24h Active Hydrocodone-Acetaminophen 10-325 MG Orally every 6 hrs 1 tablet as needed 6h Jul, 28 days Active RESULTS No Results PROCEDURES [...]
--- OUTSIDE RECORDS SUMMARY | 2018-05-16 07:03 | XMS REPORT ---
Author Author FERNY SILVERIO Organization [facility] Address [address] [place] [address] Care Team Providers Care Record Filing Clerk Name Role Phone FERNY SILVERIO Unavailable PROBLEMS Type Condition ICD9-CM Code LNT70-GJ Code Onset Dates Condition Status SNOMED Code Problem Hypoxia R09.02 Active 891103074 Problem Port catheter in place Z95.828 Active 495383177 Problem Anxiety F41.9 Active 77967528 Problem Type 2 diabetes mellitus with diabetic peripheral angiopathy without gangrene E11.51 Active 889957586 Problem Pressure ulcer of other site, stage 3 L89.893 Active 212432833 Problem Lumbar radiculopathy, chronic M54.16 Active 345036943 Problem PAD (peripheral artery disease) I73.9 Active 142051816 Problem 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 430123142 Problem Recurrent major depressive disorder, in full remission F33.42 Active 330385113 Problem Diabetes E11.9 Active 58988303 Problem Hypertension I10 Active 62141062 Problem Back pain M54.9 Active 929543083 Problem Insulin long-term use Z79.4 Active 964164891 Problem COPD (chronic obstructive pulmonary disease) J44.9 Active 49790677 ALLERGIES No Information ENCOUNTERS Encounter Location Date Diagnosis [place] [id number] [place] [address] 89880- 0600 Nov, Back pain M54.9 and Anxiety F41.9 [facility] [id number] [place] [address] 97785- 7039 Oct, [place] [address] [place] [id number] [place] [address] 43013- 8718 Oct, Back pain M54.9 and Anxiety F41.9 [place] [address] [place] [id number] [place] [address] 36896- 2908 September, Anxiety F41.9 and Back pain M54.9 [place] [address] [place] [id number] [place] [address] 14831- 7609 September, Diabetes E11.9 ; Hypertension I10 ; COPD (chronic obstructive pulmonary disease) J44.9 and Lumbar radiculopathy, chronic M54.16 [place] [address] [place] [id number] [place] [address] 42921- 7395 September, Anxiety F41.9 [place] [address] 16495- 7289 Aug, [place] [address] 75618- 4638 Aug, [place] [address] 07875- 6501 Aug, Anxiety F41.9 and Back pain M54.9 [place] [address] [place] [id number] [place] [address] 91867- 5018 Aug, Medicare annual wellness visit, initial Z00.00 ; COPD ( chronic obstructive pulmonary disease) J44.9 ; PAD (peripheral artery disease) I73.9 ; Insulin long-term use Z79.4 ; Hypertension I10 ; Anxiety F41.9 ; Recurrent major depressive disorder, in full remission F33.42 ; Pressure ulcer of other site, stage 3 L89.893 ; Type 2 diabetes mellitus with diabetic peripheral angiopathy without gangrene E11.51 and 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 [place] [id number] [place] [address] 56710- 8023 Jul, Back pain M54.9 [place] [address] 83234- 9296 Jul, [place] [address] [place] [id number] [place] [address] 85213- 8298 Jul, Anxiety F41.9 and Back pain M54.9 [place] [address] [place] [id number] [place] [address] 63417- 4176 Jul, Diabetes E11.9 [facility] [address] [place] [id number] [place] [address] 28932- 4353 May, [facility] [address] [place] [address] [id number] [place] [address] 27638- 3411 May, Diabetes E11.9 ; Anxiety F41.9 ; Back pain M54.9 and COPD ( chronic obstructive pulmonary disease) J44.9 [facility] [address] [place] [id number] [place] [address] 77518- 7710 May, Back pain M54.9 [facility] [address] 92136- 5595 May, [facility] [address] [place] [id number] [place] [address] 80079- 6627 Apr, Back pain M54.9 [facility] [address] [place] [id number] [place] [address] 26196- 7395 Mar, Back pain M54.9 [facility] [address] [place] [id number] [place] [address] 43566- 6028 Mar, [facility] [address] [place] [id number] [place] [address] 02787- 7041 16 Mar, 2017 [facility] [address] [place] [address] [id number] [place] [address] 64716- 3133 14 Mar, 2017 Radiculopathy of lumbar region M54.16 [facility] [address] [place] [address] [id number] [place] [address] 07866- 2788 13 Mar, 2017 [facility] [address] [place] [id number] [place] [address] 90620- 9007 07 Mar, 2017 Encounter for immunization Z23 and Lumbar radiculopathy, chronic M54.16 [facility] [address] [place] [id number] [place] [address] 13287- 8236 Mar, Back pain M54.9 and Anxiety F41.9 [facility] [address] [address] 10 Feb, 2017 Acute bilateral low back pain with left-sided sciatica M54.42 and Acute bilateral low back pain with right-sided sciatica M54.41 [facility] [address] [place] [id number] [place] [address] 93988- 3997 Feb, [facility] [address] [place] [id number] [place] [address] 19929- 3967 Feb, Back pain M54.9 [facility] [address] [place] [id number] [place] [address] 06915- 2108 05 Jan, 2017 Back pain M54.9 and Anxiety F41.9 [facility] [address] [place] [id number] [place] [address] 78165- 5174 05 Jan, 2017 Diabetes E11.9 [facility] [address] [place] [id number] [place] [address] 08467- 0788 Dec, Diabetes E11.9 ; Back pain M54.9 ; Anxiety F41.9 and Insulin long-term use Z79.4 [facility] [address] [place] [id number] [place] [address] 35050- 9559 Dec, Anxiety F41.9 [facility] [address] [place] [id number] [place] [address] 18838- 0800 Dec, Back pain M54.9 [facility] [address] [place] [id number] [place] [address] 95233- 3036 Nov, Back pain M54.9 [facility] [address] [place] [id number] [place] [address] 10835- 6535 Oct, Back pain M54.9 and Anxiety F41.9 [facility] [address] [place] [id number] [place] [address] 22032- 7718 September, Back pain M54.9 [facility] [address] [place] [id number] [place] [address] 81975- 6080 September, Back pain M54.9 and Anxiety F41.9 [facility] [address] [place] [id number] [place] [address] 03833- 6570 Aug, Diabetes E11.9 ; Anxiety F41.9 ; Back pain M54.9 and PAD ( peripheral artery disease) I73.9 [facility] [address] [place] [id number] [place] [address] 38649- 6986 19 Aug, 2016 Anxiety F41.9 [facility] [address] 85533- 1135 14 Aug, 2016 Back pain M54.9 [facility] [address] 77209- 5286 Jul, Back pain M54.9 [facility] [address] [place] [id number] [place] [address] 60995- 2196 Jul, Back pain M54.9 [facility] [address] 34325- 3861 Jul, Back pain M54.9 [facility] [address] 69919- 9096 16 Jul, 2016 Dorsalgia M54.9 [facility] [address] [place] [id number] [place] [address] 82477- 7534 14 Jul, 2016 [facility] [address] [place] [id number] [place] [address] 31081- 7988 May, Back pain M54.9 [facility] [address] [place] [id number] [place] [address] 43269- 0514 May, Diabetes E11.9 ; Anxiety F41.9 ; Port catheter in place Z95.828 ; Encounter for immunization Z23 and Insulin long-term use Z79.4 [facility] [address] [place] [id number] [place] [address] 55719- 4653 Apr, Back pain M54.9 [facility] [address] 50771- 6941 Apr, Back pain M54.9 [facility] [address] [place] [id number] [place] [address] 22717- 3408 Apr, [facility] [address] [place] [id number] [place] [address] 07388- 8549 Apr, Back pain M54.9 [facility] [address] [place] [id number] [place] [address] 47304- 1643 Mar, COPD (chronic obstructive pulmonary disease) J44.9 [facility] [address] [place] [id number] [place] [address] 98861- 4305 Feb, [facility] [address] [place] [id number] [place] [address] 16924- 0013 30 Jan, 2016 [facility] [address] [place] [id number] [place] [address] 25982- 9578 Jan, [facility] [address] 40936- 0112 Jan, [facility] [address] [place] [id number] [place] [address] 57780- 7602 Jan, [facility] [address] [place] [id number] [place] [address] 68336- 5029 Dec, Diabetes E11.9 ; Hypoxia R09.02 and Back pain M54.9 [facility] [address] [place] [id number] [place] [address] 91156- 6129 Dec, [facility] [address] [place] [id number] [place] [address] 23152- 4762 Nov, [facility] [address] [place] [id number] [place] [address] 87298- 1850 Oct, Anxiety F41.9 [facility] [address] [place] [id number] [place] [address] 63173- 2019 Oct, Back pain M54.9 [facility] [address] [place] [id number] [place] [address] 81762- 4822 September, Back pain M54.9 [facility] [address] [place] [address] 88338- 0531 September, Diabetes E11.9 [facility] [address] [place] [id number] [place] [address] 81592- 2962 September, [facility] [address] [place] [id number] [place] [address] 98645- 4956 September, Diabetes E11.9 ; Insulin long-term use Z79.4 and Back pain M54.9 [facility] [address] [place] [id number] [place] [address] 77763- 3121 Aug, Back pain M54.9 [facility] [address] [place] [id number] [place] [address] 51711- 4980 Aug, Back pain M54.9 ; Anxiety F41.9 and Arthropathy, unspecified M12.9 [facility] [address] [place] [id number] [place] [address] 51192- 9072 Jul, Back pain M54.9 [facility] [address] [place] [id number] [place] [address] 79630- 8656 Jul, Anxiety F41.9 [facility] [address] [place] [id number] [place] [address] 16905- 6860 Jul, Back pain M54.9 [facility] [address] [place] [id number] [place] [address] 67489- 4948 Jul, [facility] [address] [place] [id number] [place] [address] 69880- 1130 Jul, [facility] [address] [place] [id number] [place] [address] 66075- 9389 May, Back pain M54.9 ; Diabetes E11.9 ; Insulin long-term use Z79.4 ; COPD (chronic obstructive pulmonary disease) J44.9 and Hypertension I10 [facility] [address] [place] [id number] [place] [address] 35610- 3692 May, Chronic pain G89.29 [facility] [address] [address]- 7984 Apr, [facility] [address] [place] [id number] [place] [address] 32355- 5760 Apr, [facility] [address] [place] [id number] [place] [address] 63296- 8559 Mar, [facility] [address] [place] [id number] [place] [address] 60379- 1437 Mar, Encounter for immunization Z23 and Diabetes E11.9 [facility] [address] [place] [id number] [place] [address] 99236- 7641 Feb, [facility] [address] [place] [id number] [place] [address] 02094- 6577 Feb, [facility] [address] [place] [id number] [place] [address] 45531- 3949 Jan, [facility] [address] [place] [id number] [place] [address] 30791- 3326 Jan, [facility] [address] [place] [id number] [place] [address] 15682- 0090 Dec, [facility] [address] [address]- 7473 Dec, [facility] [address] [place] [address] 64181- 6351 Dec, Unspecified arthropathy, site unspecified 716.90 and Diabetes mellitus type 2, uncontrolled 250.02 [facility] [address] [address]- 6880 Dec, [facility] [address] [place] [id number] [place] [address] 58393- 0281 Nov, [facility] [address] [address]- 5772 Oct, [facility] [address] [place] [address] [place] [address]- 6421 September, [facility] [place] [facility] [address] [id number] [place] [address]- 1964 September, [facility] [place] [facility] [address] [id number] [place] [address]- 2088 September, [facility] [place] [facility] [address] [id number] [place] [address]- 1988 September, [facility] [place] [facility] [address] [id number] [place] [address]- 2716 14 Aug, 2014 [facility] [place] [facility] [address] [id number] [place] [address]- 2734 13 Aug, 2014 [facility] [place] [facility] [address] [id number] [place] [address]- 1437 18 Jul, 2014 [facility] [place] [facility] [address] [id number] [place] [address]- 6124 18 Jul, 2014 [facility] [place] [facility] [address] [id number] [place] [address]- 8638 16 Jul, 2014 [facility] [place] [facility] [address] [id number] [place] [address]- 2029 16 Jul, 2014 [facility] [place] [facility] [address] [id number] [place] [address]- 6366 16 Jul, 2014 [facility] [place] [facility] [address] [id number] [place] [address]- 5218 16 Jul, 2014 [facility] [place] [facility] [address] [id number] [place] [address]- 1408 16 Jul, 2014 [facility] [place] [facility] [address] [id number] [place] [address]- 7830 16 Jul, 2014 [facility] [place] [facility] [address] [id number] [place] [address]- 0727 16 Jul, 2014 [facility] [place] [facility] [address] [id number] [place] [address]- 9514 13 Jul, 2014 [facility] [place] [facility] [address] [id number] [place] [address]- 8237 Jul, 2014 [facility] [place] [facility] [address] [id number] [place] [address]- 0826 Jul, 2014 [facility] [place] [facility] [address] [id number] [place] [address]- 0947 Jul, 2014 [facility] [place] [facility] [address] [id number] [place] [address]- 5464 17 Jul, 2014 [facility] [place] [facility] [address] [id number] [place] [address]- 2834 17 Jul, 2014 [facility] [place] [facility] [address] [id number] [place] [address]- 2112 16 Jul, 2014 [facility] [place] [facility] [address] [id number] [place] [address]- 3980 16 Jul, 2014 [facility] [place] [facility] [address] [id number] [place] [address]- 6096 16 Jul, 2014 [facility] [place] [facility] [address] [id number] [place] [address]- 4331 16 Jul, 2014 [facility] [place] [facility] [address] [id number] [place] [address]- 9557 16 Jul, 2014 [facility] [place] [facility] [address] [id number] [place] [address]- 4357 16 Jul, 2014 [facility] [place] [facility] [address] [id number] [place] [address]- 4359 16 Jul, 2014 [facility] [place] [facility] [address] [id number] [place] [address]- 0373 16 Jul, 2014 [facility] [place] [facility] [address] [id number] [place] [address]- 6186 16 Jul, 2014 [facility] [place] [facility] [address] [id number] [place] [address]- 9330 16 Jul, 2014 [facility] [place] [facility] [address] [id number] [place] [address]- 6020 16 Jul, 2014 [facility] [place] [facility] [address] [id number] [place] [address]- 3987 Jul, 2014 [facility] [place] [facility] [address] [id number] [place] [address]- 6486 Jul, 2014 [facility] [place] [facility] [address] [id number] [place] [address]- 5010 Jul, [facility] [place] [facility] [address] [id number] [place] [address]- 5562 May, [facility] [place] [facility] [address] [id number] [place] [address]- 4880 May, [facility] [place] [facility] [address] [id number] [place] [address]- 7102 May, [facility] [place] [facility] [address] [id number] [place] [address]- 6434 May, [facility] [place] [facility] [address] [id number] [place] [address]- 7730 May, [facility] [place] [facility] [address] [id number] [place] [address]- 2304 May, [facility] [place] [facility] [address] [id number] [place] [address]- 3408 May, [facility] [place] [facility] [address] [id number] [place] [address]- 9199 May, [facility] [place] [facility] [address] [id number] [place] [address]- 8751 May, [facility] [place] [facility] [address] [id number] [place] [address]- 7740 May, [facility] [place] [facility] [address] [id number] [place] [address]- 1645 Apr, [facility] [place] [facility] [address] [id number] [place] [address]- 8703 Apr, [facility] [place] [facility] [address] [id number] [place] [address]- 4391 Apr, [facility] [place] [facility] [address] [id number] [place] [address]- 8499 Apr, [facility] [place] [facility] [address] [facility] [id number] [place] 5625 Apr, [facility] [place] [facility] [address] [id number] [place] [address]- 1533 Apr, [facility] [place] [facility] [address] [id number] [place] [address]- 5402 Mar, [facility] [place] [facility] [address] [id number] [place] [address]- 3119 Mar, [facility] [place] [facility] [address] [id number] [place] [address]- 7699 Mar, [facility] [place] [facility] [address] [id number], [place] [address]- 8063 Mar, [facility] [place] [facility] [address] [id number] [place] [address]- 4377 Mar, [facility] [place] [facility] [address] [id number] [place] [address]- 2879 Mar, [facility] [place] [facility] [address] [id number], [place] [address]- 6569 Mar, [facility] [place] [facility] [address] [id number], [place] [address]- 1432 Mar, [facility] [place] [facility] [address] [id number] [place] [address]- 3970 Mar, [facility] [place] [facility] [address] [id number], [place] [address]- 6173 Mar, [facility] [place] [facility] [address] [id number], [place] [address]- 1191 Mar, [facility] [place] [facility] [address] [id number] [place] [address]- 0662 30 Feb, 2014 [facility] [place] [facility] [address] [id number] [place] [address]- 6308 30 Feb, 2014 [facility] [place] [facility] [address] [id number] [place] [address]- 6846 Feb, [facility] [place] [facility] [address] [id number] [place] [address]- 2237 Feb, [facility] [place] [facility] [address] [id number] [place] [address]- 3767 Feb, [facility] [place] [facility] [address] [id number] [place] [address]- 6053 Feb, [facility] [place] [facility] [address] [id number] [place] [address]- 1375 Feb, [facility] [place] [facility] [address] [id number] [place] [address]- 8706 Feb, [facility] [place] [facility] [address] [id number] [place] [address]- 4162 Feb, [facility] [place] [facility] [address] [id number] [place] [address]- 5033 Feb, [facility] [place] [facility] [address] [id number] [place] [address]- 8943 22 Jan, 2014 [facility] [place] [facility] [address] [id number] [place] [address]- [address] 22 Jan, 2013 [facility] [place] [facility] [address] [id number] [place] [address] 16 Jan, 2013 [facility] [place] [facility] [address] [id number] [place] [address]43 16 Sep, 2013 [facility] [place] [facility] [address] [id number] [place] [address] 12 Jan, 2013 [facility] [place] [facility] [address] [id number] [place] [address] Jan, [facility] [place] [facility] [address] [id number] [place] [address] Jan, [facility] [place] [facility] [address] [id number] [place] [address] Dec, [facility] [place] [facility] [address] [id number] [place] [address] Dec, [facility] [place] [facility] [address] [id number] [place] [address] Dec, [facility] [place] [facility] [address] [id number] [place] [address]- [address] Dec, [facility] [place] [facility] [address] [id number] [place] [address] Dec, [facility] [place] [facility] [address] [id number] [place] [address] Dec, [facility] [place] [facility] [address] [id number] [place] [address]- [address] Dec, [facility] [place] [facility] [address] [id number] [place] [address]- [address] Dec, [facility] [place] [facility] [address] [id number] [place] [address] Oct, [facility] [place] [facility] [address] [id number] [place] [address]- [address] Oct, [facility] [place] [facility] [address] [id number] [place] [address] September, [facility] [place] [facility] [address] [id number] [place] [address]- [address] September, [facility] [place] [facility] [address] [id number] [place] [address]- [address] September, [facility] [place] [facility] [address] [id number] [place] [address] September, [facility] [place] [facility] [address] [id number] [place] [address]- [address]472 September, [facility] [place] [facility] [address] [id number] [place] [address]- 9581 September, [facility] [place] [facility] [address] [id number] [place] [address]- [address] September, [facility] [place] [facility] [address] [id number] [place] [address]- [address] Aug, [facility] [place] [facility] [address] [id number] [place] [address]- [address] Aug, [facility] [place] [facility] [address] [id number] [place] [address] Jul, [facility] [place] [facility] [address] [id number] [place] [address]- [address] 24 Jul, 2013 [facility] [place] [facility] [address] [id number] [place] [address]- [address] Jul, [facility] [place] [facility] [address] [id number] [place] [address]- [address] Jul, [facility] [place] [facility] [address] [id number] [place] [address] 14 Jul, 2013 [facility] [place] [facility] [address] [id number] [place] [address]- [address] 14 Jul, 2013 [facility] [place] [facility] [address] [id number] [place] [address]- [address] Jul, [facility] [place] [facility] [address] [id number] [place] [address]- 9867 Jul, [facility] [place] [facility] [address] [id number] [place] [address]- [address] May, [facility] [place] [facility] [address] [id number] [place] [address]- 45[address] May, [facility] [place] [facility] [address] [id number] [place] [address]- [address] May, [facility] [place] [facility] [address] [id number] [place] [address]- [address] 14 May, 2013 [facility] [place] [facility] [address] [id number] [place] [address]- [address] 18 Apr, 2013 [facility] [place] [facility] [address] [id number] [place] [address]- [address]199 Mar, [facility] [place] [facility] [address] [id number] [place] [address]- [address] Mar, [facility] [place] [facility] [address] [id number] [place] [address]- [address]783 Mar, [facility] [place] [facility] [address] [id number] [place] [address]- [address] Mar, [facility] [place] [facility] [address] [id number] [place] [address]- [address]70 Mar, [facility] [place] [facility] [address] [id number] [place] [address]- 48[address] Mar, [facility] [place] [facility] [address] [id number] [place] [address]- 40[address] Mar, [facility] [place] [facility] [address] [id number] [place] [address]- 404[address] 18 Mar, 2013 [facility] [place] [facility] [address] [id number] [place] [address]- [address] Mar, [facility] [place] [facility] [address] [id number] [address] Mar, [facility] [place] [facility] [address] [id number] [place] [place] [address] Mar, [facility] [place] [facility] [address] [id number] [place] [address] 04 Mar, 2013 [facility] [place] [facility] [address] [id number], [place] [address] 15 Feb, 2013 [facility] [place] [facility] [address] [id number], [place] [address] Feb, [facility] [place] [facility] [address] [id number] [place] [address] Feb, [facility] [place] [facility] [address] [id number] [place] [address] Feb, [facility] [place] [facility] [address] [id number] [place] [address] Feb, [facility] [place] [facility] [address] [id number] [place] [address] Jan, [facility] [place] [facility] [address] [id number] [place] [address] Dec, [facility] [place] [facility] [address] [id number] [place] [address] Dec, [facility] [place] [facility] [address] [id number] [place] [address] Dec, [facility] [place] [facility] [address] [id number] [place] [address] Nov, [facility] [place] [facility] [address] [id number] [place] [address]269 Nov, [facility] [place] [facility] [address] [id number] [place] [address] Nov, [facility] [place] [facility] [address] [id number] [place] [address] Oct, [facility] [place] [facility] [address] [id number] [place] [address] Oct, [facility] [place] [facility] [address] [id number] [place] [address]88 Oct, [facility] [place] [facility] [address] [id number] [place] [address] September, [facility] [place] [facility] [address] [id number] [place] [address]- [address]288 September, [facility] [place] [facility] [address] [id number] [place] [address] 14 Sep, 2012 [facility] [address] [id number] [place] [address] September, [facility] [address] [id number] [place] [address] September, [facility] [address] [id number] [place] [address] Aug, [facility] [address] [id number] [place] [address] Aug, [facility] [address] [id number] [place] [address] 12[address] Aug, [facility] [address] [id number] [place] [address]597 Jul, [facility] [address] [id number] [place] [address] Jul, [facility] [address] [id number] [place] [address]120 Jul, [facility] [address] [id number] [place] [address] 0265 Jul, [facility] [address] [id number] [place] [address] Jul, [facility] [address] [id number] [place] [address]35 Jul, [facility] [address] [id number] [place] [address] 6168 Jul, [facility] [address] [id number] [place] [address]16 May, [facility] [address] [id number] [place] [address]46 May, [facility] [address] [id number] [place] [address] 0914 May, [facility] [place] [facility] [address] [id number] [place] [address]- 4036 Apr, [facility] [place] [facility] [address] [id number] [place] [address] 1738 Apr, [facility] [place] [facility] [address] [id number] [place] [address] 4[address] Apr, [facility] [place] [facility] [address] [id number] [place] [address] 9244 Apr, [facility] [place] [facility] [address] [id number] [place] [address]- [address]113 Apr, [facility] [place] [facility] [address] [id number] [place] [address]25 Mar, [facility] [place] [facility] [address] [id number] [place] [address]26 Mar, [facility] [place] [facility] [address] [id number], [place] [address] Mar, [facility] [place] [facility] [address] [id number] [place] [address] Mar, [facility] [place] [facility] [address] [id number], [place] [address] Feb, [facility] [place] [facility] [address] [id number], [place] [address] Feb, [facility] [place] [facility] [address] [id number], [place] [address] 4760 Feb, [facility] [place] [facility] [address] [id number], [place] [address] Feb, [facility] [place] [facility] [address] [id number], [place] [address] Feb, [facility] [place] [facility] [address] [facility] [id number], [place] [address]- [address] Jan, [facility] [place] [facility] [address] [id number] [place] [address]- [address]79 Dec, [facility] [place] [facility] [address] [id number] [place] [address]- 4[address] Dec, [facility] [place] [facility] [address] [id number] [place] [address]- [address]120 Dec, [facility] [place] [facility] [address] [id number] [place] [address] 2185 Nov, [facility] [place] [facility] [address] [id number] [place] [address]- [address]28 Nov, [facility] [place] [facility] [address] [id number] [place] [address] 1984 Nov, [facility] [place] [facility] [address] [id number] [place] [address] Oct, [facility] [place] [facility] [address] [id number] [place] [address] 3718 Oct, [facility] [place] [facility] [address] [id number] [place] [address]- 2637 Oct, [facility] [place] [facility] [address] [id number] [place] [address] 2880 Oct, [facility] [place] [facility] [address] [id number] [place] [address]- 45[address] September, [facility] [place] [facility] [address] [id number] [place] [address]- 6936 September, [facility] [place] [facility] [address] [id number] [place] [address]- [address]773 30 Aug, 2011 [facility] [place] [facility] [address] [id number] [place] [address]- [address] 23 Aug, 2011 [facility] [place] [facility] [address] [id number] [place] [address]- 3834 Aug, [facility] [place] [facility] [address] [id number] [place] [address]- 2943 Aug, [facility] [place] [facility] [address] [id number] [place] [address]- 4496 Aug, [facility] [place] [facility] [address] [id number] [place] [address]- 4379 Aug, [facility] [place] [facility] [address] [id number] [place] [address]- 8086 Aug, [facility] [place] [facility] [address] [id number] [place] [address]- 2536 Jul, [facility] [place] [facility] [address] [id number] [place] [address]- 2022 Jul, [facility] [place] [facility] [address] [id number] [place] [address]- 2742 Jul, [facility] [place] [facility] [address] [id number] [place] [address]- 4415 May, [facility] [address] [id number] [place] [address]- 5614 May, [facility] [place] [facility] [address] [id number] [place] [address]- 9760 May, [facility] [address] [id number] [place] [address]- 5459 Apr, [facility] [place] [facility] [address] [id number] [place] [address]- 4661 Apr, [facility] [place] [facility] [address] [id number] [place] [address]- 9419 Mar, [facility] [place] [facility] [address] [id number] [place] [address]- 9065 Mar, [facility] [place] [facility] [address] [id number] [place] [address]- 1251 Mar, [facility] [place] [facility] [address] [id number] [place] [address]- 5795 Mar, [facility] [place] [facility] [address] [id number] [place] [address] Mar, [facility] [address] [facility] [id number] [place] [address]- [address]300 Mar, [facility] [address] [facility] [id number], [place] [address]- 0296 Feb, [facility] [address] [facility] [id number], [place] [address]- [address] Feb, [facility] [address] [facility] [id number], [place] [address]- [address]200 Feb, IMMUNIZATIONS No Known Immunizations SOCIAL HISTORY Never Assessed REASON FOR VISIT PA Initiated PLAN OF CARE VITAL SIGNS MEDICATIONS Unknown [...]
--- OUTSIDE RECORDS SUMMARY | 2018-05-16 07:05 | XMS REPORT ---
Author Author FERNY SILVERIO Organization [facility] Address [address] [place] [address] Care Team Providers Care Log Loader Name Role Phone FERNY SILVERIO Unavailable PROBLEMS Type Condition ICD9-CM Code [id number] Code Onset Dates Condition Status SNOMED Code Problem Hypoxia R09.02 Active 881458464 Problem Port catheter in place Z95.828 Active 205236748 Problem Anxiety F41.9 Active 85190042 Problem Type 2 diabetes mellitus with diabetic peripheral angiopathy without gangrene E11.51 Active 299054925 Problem Pressure ulcer of other site, stage 3 L89.893 Active 147127928 Problem Lumbar radiculopathy, chronic M54.16 Active 533753225 Problem PAD (peripheral artery disease) I73.9 Active 271040205 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 Active 015512651 Problem Recurrent major depressive disorder, in full remission F33.42 Active 299209746 Problem Diabetes E11.9 Active 54159635 Problem Hypertension I10 Active 26783483 Problem Back pain M54.9 Active 911860374 Problem Insulin long-term use Z79.4 Active 021800091 Problem COPD (chronic obstructive pulmonary disease) J44.9 Active 52088237 ALLERGIES No Information ENCOUNTERS Encounter Location Date Diagnosis [place] [address], [place] [address] Oct, [facility] [address], [place] [address] Oct, Back pain M54.9 and Anxiety F41.9 [facility] [address] [place] [address] 06926- 4005 September, Anxiety F41.9 and Back pain M54.9 [place] [id number] [place] [address] 27775- 2098 September, Diabetes E11.9 ; Hypertension I10 ; COPD (chronic obstructive pulmonary disease) J44.9 and Lumbar radiculopathy, chronic M54.16 [place] [address] [place] [id number] [place] [address] 88590- 2101 September, Anxiety F41.9 [place] [address] [place] [id number] [place] [address] 08673- 9969 Aug, [place] [address] [place] [id number] [place] [address] 91196- 6253 Aug, [place] [address] [place] [id number] [place] [address] 20654- 9280 Aug, Anxiety F41.9 and Back pain M54.9 [place] [address] [place] [id number] [place] [address] 64423- 7772 Aug, Medicare annual wellness visit, initial Z00.00 ; COPD ( chronic obstructive pulmonary disease) J44.9 ; PAD (peripheral artery disease) I73.9 ; Insulin long-term use Z79.4 ; Hypertension I10 ; Anxiety F41.9 ; Recurrent major depressive disorder, in full remission F33.42 ; Pressure ulcer of other site, stage 3 L89.893 ; Type 2 diabetes mellitus with diabetic peripheral angiopathy without gangrene E11.51 and detention current use of insulin Z79.4 [place] [address] [place] [id number] [place] [address] 22461- 8272 Jul, Back pain M54.9 [place] [address] [place] [id number] [place] [address] 02887- 4395 Jul, [place] [address] [place] [id number] [place] [address] 87488- 5302 Jul, Anxiety F41.9 and Back pain M54.9 [place] [address] [place] [id number] [place] [address] 58623- 9810 Jul, Diabetes E11.9 [place] [address] [place] [id number] [place] [address] 55497- 7594 May, [facility] [address] [id number] [place] [address] 74493- 1395 May, Diabetes E11.9 ; Anxiety F41.9 ; Back pain M54.9 and COPD ( chronic obstructive pulmonary disease) J44.9 [facility] [address] [id number] [place] [address] 44834- 8152 May, Back pain M54.9 [facility] [address] 03603- 5630 May, [facility] [address] [place] [id number] [place] [address] 01160- 9602 Apr, Back pain M54.9 [facility] [address] [id number] [place] [address] 07091- 8041 Mar, Back pain M54.9 [facility] [address] 56717- 9663 Mar, [facility] [address] [id number] [place] [address] 30462- 8016 Mar, [facility] [address] 80056- 0595 14 Mar, 2017 Radiculopathy of lumbar region M54.16 [facility] [address] [place] [id number] [place] [address] 27843- 4506 Mar, [facility] [address] 55657- 9455 07 Mar, 2017 Encounter for immunization Z23 and Lumbar radiculopathy, chronic M54.16 [facility] [address] 04231- 1600 Mar, Back pain M54.9 and Anxiety F41.9 [facility] [address] [id number] [place] [address] 54842 -1364 10 Feb, 2017 Acute bilateral low back pain with left-sided sciatica M54.42 and Acute bilateral low back pain with right-sided sciatica M54.41 [facility] [address] [id number] [place] [address] 87427- 9412 Feb, [facility] [address] [place] [id number] [place] [address] 14664- 6043 Feb, Back pain M54.9 [facility] [address] [id number] [place] [address] 49608- 5780 05 Jan, 2017 Back pain M54.9 and Anxiety F41.9 [facility] [address] [place] [id number] [place] [address] 52786- 4464 05 Jan, 2017 Diabetes E11.9 [place] [address] [place] [id number] [place] [address] 11135- 7778 Dec, Diabetes E11.9 ; Back pain M54.9 ; Anxiety F41.9 and Insulin long-term use Z79.4 [place] [address] [place] [id number] [place] [address] 66255- 2377 Dec, Anxiety F41.9 [facility] [address] [place] [id number] [place] [address] 67230- 1029 Dec, Back pain M54.9 [facility] [address] [place] [id number] [place] [address] 72220- 8772 Nov, Back pain M54.9 [facility] [address] [place] [id number] [place] [address] 27564- 2117 Oct, Back pain M54.9 and Anxiety F41.9 [facility] [address] [place] [id number] [place] [address] 89482- 1824 September, Back pain M54.9 [facility] [address] [place] [id number] [place] [address] 09960- 6249 September, Back pain M54.9 and Anxiety F41.9 [facility] [address] [place] [id number] [place] [address] 01557- 6817 Aug, Diabetes E11.9 ; Anxiety F41.9 ; Back pain M54.9 and PAD ( peripheral artery disease) I73.9 [facility] [address] 50227- 8016 19 Aug, 2016 Anxiety F41.9 [facility] [address] 52731- 9286 14 Aug, 2016 Back pain M54.9 [facility] [address] 63118- 2226 Jul, Back pain M54.9 [facility] [address] 92194- 4474 Jul, Back pain M54.9 [facility] [address] 36265- 6640 Jul, Back pain M54.9 [facility] [address] 91139- 8940 16 Jul, 2016 Dorsalgia M54.9 [facility] [address] 23142- 0270 Jul, [facility] [address] 05410- 4321 May, Back pain M54.9 [facility] [address] 85540- 9442 May, Diabetes E11.9 ; Anxiety F41.9 ; Port catheter in place Z95.828 ; Encounter for immunization Z23 and Insulin long-term use Z79.4 [facility] [address] [place] [id number] [place] [address] 35979- 9884 Apr, Back pain M54.9 [facility] [address] 15339- 5545 Apr, Back pain M54.9 [facility] [address] 13650- 0752 Apr, [place] [address], [place] [address]- 5116 Apr, Back pain M54.9 [facility] [address] [place] [id number] [place] [address] 14497- 3470 Mar, COPD (chronic obstructive pulmonary disease) J44.9 [facility] [address] [place] [id number] [place] [address] 92460- 4015 Feb, [facility] [address] [place] [id number] [place] [address] 17309- 2713 30 Jan, 2016 [facility] [address] [place] [id number] [place] [address] 97644- 2713 Jan, [facility] [address] [place] [id number] [place] [address] 62574- 9333 Jan, [facility] [address] [place] [id number] [place] [address] 91010- 0652 Jan, [facility] [address] [place] [id number] [place] [address] 86248- 1832 Dec, Diabetes E11.9 ; Hypoxia R09.02 and Back pain M54.9 [facility] [address] [place] [id number] [place] [address] 91694- 5369 Dec, [facility] [id number] [place] [address] 30982- 3978 Nov, [facility] [address] [place] [address] 92883- 2155 Oct, Anxiety F41.9 [facility] [address] [place] [address] 17292- 4673 Oct, Back pain M54.9 [facility] [address] [place] [address] 25906- 8679 September, Back pain M54.9 [facility] [address] [place] [address] 47422- 3358 September, Diabetes E11.9 [facility] [address] [place] [id number] [place] [address] 80635- 2703 September, [facility] [address] 78345- 2126 September, Diabetes E11.9 ; Insulin long-term use Z79.4 and Back pain M54.9 [facility] [address] [place] [id number] [place] [address] 96916- 8159 Aug, Back pain M54.9 [facility] [address] 54342- 7757 Aug, Back pain M54.9 ; Anxiety F41.9 and Arthropathy, unspecified M12.9 [facility] [address] [place] [id number] [place] [address] 20212- 8652 Jul, Back pain M54.9 [place] [address] 31485- 9607 Jul, Anxiety F41.9 [facility] [address] 63559- 6249 Jul, Back pain M54.9 [facility] [address] [place] [id number] [place] [address] 90439- 4092 Jul, [facility] [address] [place] [id number] [place] [address] 60365- 5292 Jul, [facility] [address] [place] [id number] [place] [address] 41746- 5667 May, Back pain M54.9 ; Diabetes E11.9 ; Insulin long-term use Z79.4 ; COPD (chronic obstructive pulmonary disease) J44.9 and Hypertension I10 [place] [address] [place] [id number] [place] [address] 40012- 5611 May, Chronic pain G89.29 [place] [address] [place] [id number] [place] [address] 58467- 0890 Apr, [place] [address], [place] [address]- 3914 Apr, [facility] [address], [place] [address]- 3016 Mar, [facility] [address] [id number], [place] [address]- 9196 Mar, Encounter for immunization Z23 and Diabetes E11.9 [facility] [address] [place] [id number] [place] [address] 25540- 2181 Feb, [facility] [address] [id number] [place] [address] 30473- 5437 Feb, [facility] [address] [id number] [place] [address] 89067- 5969 Jan, [facility] [address] [id number] [place] [address] 35024- 7182 Jan, [facility] [address] [place] [address] 41608- 1885 Dec, [facility] [address] [id number] [place] [address] 40434- 9039 Dec, [facility] [address], [place] [address]- 5969 Dec, Unspecified arthropathy, site unspecified 716.90 and Diabetes mellitus type 2, uncontrolled 250.02 [facility] [address], [place] [address]- 5731 Dec, [facility] [address], [place] [address]- 3045 Nov, [facility] [id number] [address]- 4487 Oct, [facility] [address], [place] [address]- 7326 September, [facility] [id number] [place] [address] 67703- 6479 September, [facility] [place] [facility] [address] [id number] [place] [address]- 4912 September, [facility] [place] [facility] [address] [id number] [place] [address]- 5381 September, [facility] [place] [facility] [address] [id number] [place] [address]- 4480 14 Aug, 2014 [facility] [place] [facility] [address] [id number] [place] [address]- 8019 13 Aug, 2014 [facility] [place] [facility] [address] [id number] [place] [address]- 2423 18 Jul, 2014 [facility] [place] [facility] [address] [id number] [place] [address]- 9501 18 Jul, 2014 [facility] [place] [facility] [address] [id number] [place] [address]- 0932 16 Jul, 2014 [facility] [place] [facility] [address] [id number] [place] [address]- 9230 16 Jul, 2014 [facility] [place] [facility] [address] [id number] [place] [address]- 8143 16 Jul, 2014 [facility] [place] [facility] [address] [id number] [place] [address]- 6207 16 Jul, 2014 [facility] [place] [facility] [address] [id number] [place] [address]- 0110 16 Jul, 2014 [facility] [place] [facility] [address] [id number], [place] [address]- 3056 16 Jul, 2014 [facility] [place] [facility] [address] [id number] [place] [address]- 8666 16 Jul, 2014 [facility] [place] [facility] [address] [id number] [place] [address]- 4046 13 Jul, 2014 [facility] [place] [facility] [address] [id number] [place] [address]- 4733 13 Jul, 2014 [facility] [place] [facility] [address] [id number] [place] [address]- 8270 09 Jul, 2014 [facility] [place] [facility] [address] [id number] [place] [address]- 6525 Jul, 2014 [facility] [place] [facility] [address] [id number] [place] [address]- 2036 17 Jul, 2014 [facility] [place] [facility] [address] [id number] [place] [address]- 3578 17 Jul, 2014 [facility] [place] [facility] [address] [id number] [place] [address]- 9080 16 Jul, 2014 [facility] [place] [facility] [address] [id number] [place] [address]- 1785 16 Jul, 2014 [facility] [place] [facility] [address] [facility] [id number] [place] [address]- 8776 16 Jul, 2014 [facility] [place] [facility] [address] [facility] [id number] [place] [address]- 9120 16 Jul, 2014 [facility] [place] [facility] [address] [id number] [place] [address]- 7968 16 Jul, 2014 [facility] [place] [facility] [address] [facility] [id number] [place] [address]- 4995 16 Jul, 2014 [facility] [place] [facility] [address] [facility] [id number] [place] [address]- 0084 16 Jul, 2014 [facility] [place] [facility] [address] [facility] [id number], [place] [address]- 4972 Jul, 2014 [facility] [place] [facility] [address] [facility] [id number] [place] [address]- 4335 16 Jul, 2014 [facility] [place] [facility] [address] [id number] [place] [address]- 3134 16 Jul, 2014 [facility] [place] [facility] [address] [facility] [id number] [place] [address]- 8725 16 Jul, 2014 [facility] [place] [facility] [address] [facility] [id number], [place] [address]- 8565 Jul, [facility] [place] [facility] [address] [id number] [place] [address]- 8566 Jul, [facility] [place] [facility] [address] [id number] [place] [address]- 5021 Jul, [facility] [place] [facility] [address] [id number] [place] [address]- 1201 May, [facility] [place] [facility] [address] [id number] [place] [address]- 1554 May, [facility] [place] [facility] [address] [id number] [place] [address]- 8805 May, [facility] [place] [facility] [address] [id number] [place] [address]- 4298 May, [facility] [place] [facility] [address] [id number] [place] [address]- 4502 May, [facility] [place] [facility] [address] [id number] [place] [address]- 2512 May, [facility] [place] [facility] [address] [id number] [place] [address]- 3214 May, [facility] [place] [facility] [address] [id number] [place] [address]- 2444 May, [facility] [place] [facility] [address] [id number] [place] [address]- 4646 May, [facility] [place] [facility] [address] [id number] [place] [address]- 4005 May, [facility] [place] [facility] [address] [id number] [place] [address]- 0903 Apr, [facility] [place] [facility] [address] [id number] [place] [address]- 5376 Apr, [facility] [place] [facility] [address] [id number] [place] [address]- 5463 Apr, [facility] [place] [facility] [address] [id number] [place] [address]- 1098 Apr, [facility] [place] [facility] [address] [id number] [place] [address]- 7252 Apr, [facility] [place] [facility] [address] [id number] [place] [address]- 8141 Apr, [facility] [place] [facility] [address] [id number] [place] [address]- 1692 Mar, [facility] [place] [facility] [address] [id number] [place] [address]- 5334 Mar, [facility] [place] [facility] [address] [id number] [place] [address]- 8064 Mar, [facility] [place] [facility] [address] [id number] [place] [address]- 7028 Mar, [facility] [place] [facility] [address] [id number] [place] [address]- 8757 Mar, [facility] [place] [facility] [address] [id number] [place] [address]- 1784 Mar, [facility] [place] [facility] [address] [id number] [place] [address]- 9779 Mar, [facility] [place] [facility] [address] [id number] [place] [address]- 4658 Mar, [facility] [place] [facility] [address] [id number] [place] [address]- 7270 Mar, [facility] [place] [facility] [address] [id number] [place] [address]- 5474 Mar, [facility] [place] [facility] [address] [id number] [place] [address]- 0590 Mar, [facility] [place] [facility] [address] [id number] [place] [address]- 9112 Feb, [facility] [place] [facility] [address] [id number] [place] [address]- 6957 30 Feb, 2014 [facility] [place] [facility] [address] [id number] [place] [address]- 0579 Feb, [facility] [place] [facility] [address] [id number] [place] [address]- 9173 Feb, [facility] [place] [facility] [address] [id number] [place] [address]- 7240 Feb, [facility] [place] [facility] [address] [id number] [place] [address]- 1342 Feb, [facility] [place] [facility] [address] [id number] [place] [address]- 8966 Feb, [facility] [place] [facility] [address] [id number] [place] [address]- 2903 Feb, [facility] [place] [facility] [address] [id number] [place] [address]- 6919 Feb, [facility] [place] [facility] [address] [id number], [place] [address]- 7033 Feb, [facility] [place] [facility] [address] [id number] [place] [address]- 6254 22 Jan, 2014 [facility] [place] [facility] [address] [id number] [place] [address]- 3295 22 Jan, 2013 [facility] [place] [facility] [address] [id number], [place] [address]- 8311 16 Jan, 2013 [facility] [place] [facility] [address] [id number], [place] [address]- 2548 16 Jan, 2013 [facility] [place] [facility] [address] [id number] [place] [address] 12 Jan, 2014 [facility] [place] [facility] [address] [id number], [place] [address] 04 Jan, 2013 [facility] [place] [facility] [address] [id number], [place] [address] 04 Jan, 2013 [facility] [place] [facility] [address] [id number] [place] [address] Dec, [facility] [place] [facility] [address] [id number] [place] [address] Dec, [facility] [place] [facility] [address] [id number] [place] [address] Dec, [facility] [place] [facility] [address] [id number] [place] [address] Dec, [facility] [place] [facility] [address] [id number] [place] [address] Dec, [facility] [place] [facility] [address] [id number] [place] [address] Dec, [facility] [place] [facility] [address] [id number] [place] [address] Dec, [facility] [place] [facility] [address] [id number] [place] [address] Dec, [facility] [place] [facility] [address] [id number] [place] [address] Oct, [facility] [place] [facility] [address] [id number] [place] [address] Oct, [facility] [place] [facility] [address] [id number] [place] [address] September, [facility] [place] [facility] [address] [id number] [place] [address] September, [facility] [place] [facility] [address] [id number] [place] [address]- [address] September, [facility] [place] [facility] [address] [id number] [place] [address] September, [facility] [place] [facility] [address] [id number] [place] [address]- [address] September, [facility] [place] [facility] [address] [id number] [place] [address]- [address]686 September, [facility] [place] [facility] [address] [id number] [place] [address] September, [facility] [place] [facility] [address] [id number] [place] [address] Aug, [facility] [place] [facility] [address] [id number] [place] [address]- [address] Aug, [facility] [place] [facility] [address] [id number] [place] [address]- [address] Jul, [facility] [place] [facility] [address] [id number] [place] [address]- [address] Jul, [facility] [place] [facility] [address] [id number] [place] [address] Jul, [facility] [place] [facility] [address] [id number] [place] [address] Jul, [facility] [place] [facility] [address] [id number] [place] [address]- [address] Jul, [facility] [place] [facility] [address] [id number] [place] [address]- [address] Jul, [facility] [place] [facility] [address] [id number] [place] [address]- [address] Jul, [facility] [place] [facility] [address] [id number] [place] [address] Jul, [facility] [place] [facility] [address] [id number] [place] [address] 14[address] May, [facility] [place] [facility] [address] [id number] [place] [address]- [address]843 May, [facility] [place] [facility] [address] [id number] [place] [address]- 1426 May, [facility] [place] [facility] [address] [id number] [place] [address]- [address] May, [facility] [place] [facility] [address] [id number] [place] [address]- [address] 18 Apr, 2013 [facility] [place] [facility] [address] [id number] [place] [address]- [address] Mar, [facility] [place] [facility] [address] [id number] [place] [address]- [address] Mar, [facility] [place] [facility] [address] [id number] [place] [address]- [address]32 Mar, [facility] [place] [facility] [address] [id number] [place] [address]- [address] Mar, [facility] [place] [facility] [address] [id number] [place] [address]- 80[address] Mar, [facility] [place] [facility] [address] [id number] [place] [address]- 132[address] Mar, [facility] [place] [facility] [address] [id number] [place] [address]- [address] Mar, [facility] [place] [facility] [address] [id number] [place] [address]- [address]60 Mar, [facility] [place] [facility] [address] [id number] [place] [address]- [address] Mar, [facility] [place] [facility] [address] [facility] [id number] [place] [address]- [address] Mar, [facility] [place] [facility] [address] [id number] [place] [address]- 76[address] Mar, [facility] [place] [facility] [address] [id number], [place] [address] 04 Mar, 2013 [facility] [place] [facility] [address] [id number] [place] [address]- [address] 15 Feb, 2013 [facility] [place] [facility] [address] [id number] [place] [address]- [address] 15 Feb, 2013 [facility] [place] [facility] [address] [id number], [place] [address] Feb, [facility] [place] [facility] [address] [address] [id number] [place] [address] Feb, [facility] [address] [id number] [place] [address] Feb, [facility] [address] [id number] [place] [address] Jan, [facility] [place] [facility] [address] [id number] [place] [address] Dec, [facility] [address] [id number] [place] [address] Dec, [facility] [address] [id number] [place] [address] Dec, [facility] [address] [id number] [place] [address] Nov, [facility] [address] [id number] [place] [address]84 Nov, [facility] [address] [id number] [place] [address] Nov, [facility] [address] [id number] [place] [address] Oct, [facility] [place] [facility] [address] [id number] [place] [address] Oct, [facility] [place] [facility] [address] [id number] [place] [address] Oct, [facility] [place] [facility] [address] [id number] [place] [address] September, [facility] [place] [facility] [address] [id number] [place] [address] September, [facility] [place] [facility] [address] [id number] [place] [address] September, [facility] [place] [facility] [address] [id number] [place] [address] September, [facility] [address] [id number] [place] [address] September, [facility] [address] [id number] [place] [address] 9435 Aug, [facility] [address] [id number] [place] [address] Aug, [facility] [address] [id number] [place] [address] Aug, [facility] [address] [id number] [place] [address] Jul, [facility] [address] [id number] [place] [address] Jul, [facility] [address] [id number] [place] [address]169 Jul, [facility] [address] [id number] [place] [address] 84[address] Jul, [facility] [address] [id number] [place] [address] 6[address] Jul, [facility] [address] [id number] [place] [address] Jul, [facility] [address] [id number] [place] [address] 8946 Jul, [facility] [address] [id number] [place] [address] May, [facility] [place] [facility] [address] [id number] [place] [address] May, [facility] [place] [facility] [address] [id number] [place] [address] May, [facility] [address] [id number] [place] [address] Apr, [facility] [place] [facility] [address] [id number] [place] [address] 236[address] Apr, [facility] [place] [facility] [address] [id number] [place] [address] 6836 Apr, [facility] [place] [facility] [address] [id number] [place] [address] 2546 Apr, [facility] [place] [facility] [address] [id number] [place] [address] Apr, [facility] [place] [facility] [address] [id number] [place] [address]31 Mar, [facility] [place] [facility] [address] [id number] [place] [address] 77[address] Mar, [facility] [place] [facility] [address] [id number] [place] [address]697 Mar, [facility] [place] [facility] [address] [id number] [place] [address] 32[address] Mar, [facility] [place] [facility] [address] [id number] [place] [address]641 Feb, [facility] [place] [facility] [address] [id number] [place] [address] 7708 Feb, [facility] [place] [facility] [address] [facility] [id number] [place] [address] Feb, [facility] [place] [facility] [address] [id number] [place] [address] 46[address] Feb, [facility] [place] [facility] [address] [id number] [place] [address] 2548 Feb, [facility] [place] [facility] [address] [id number] [place] [address] 28[address] Jan, [facility] [place] [facility] [address] [id number] [place] [address]- 2546 Dec, [facility] [place] [facility] [address] [id number] [place] [address] 0298 Dec, [facility] [place] [facility] [address] [id number] [place] [address] 7903 Dec, [facility] [place] [facility] [address] [id number] [place] [address]- 0418 Nov, [facility] [place] [facility] [address] [id number] [place] [address]- 2283 Nov, [facility] [place] [facility] [address] [id number] [place] [address] 7605 Nov, [facility] [place] [facility] [address] [id number] [place] [address]- 2217 Oct, [facility] [place] [facility] [address] [id number] [place] [address] 4778 Oct, [facility] [place] [facility] [address] [id number] [place] [address]- 5133 Oct, [facility] [place] [facility] [address] [id number] [place] [address]- 2486 Oct, [facility] [place] [facility] [address] [id number] [place] [address]- 9543 September, [facility] [place] [facility] [address] [id number] [place] [address] 3472 September, [facility] [place] [facility] [address] [id number] [place] [address] 30 Aug, 2011 [facility] [place] [facility] [address] [id number] [place] [address]- [address] 23 Aug, 2011 [facility] [place] [facility] [address] [id number] [place] [address]- 9272 10 Aug, 2011 [facility] [place] [facility] [address] [id number] [place] [address]- 4413 09 Aug, 2011 [facility] [place] [facility] [address] [id number] [place] [address]- 3296 Aug, [facility] [place] [facility] [address] [id number] [place] [address]- 7643 05 Aug, 2011 [facility] [address] [id number] [place] [address] 7257 Aug, [facility] [place] [facility] [address] [id number] [place] [address]- 1706 Jul, [facility] [place] [facility] [address] [id number] [place] [address]- 1061 Jul, [facility] [place] [facility] [address] [id number] [place] [address]- 9128 Jul, [facility] [place] [facility] [address] [id number] [place] [address]- 4258 May, [facility] [place] [facility] [address] [id number] [place] [address]- 3291 May, [facility] [place] [facility] [address] [id number] [place] [address]- 3658 May, [facility] [place] [facility] [address] [id number] [place] [address]- 1679 Apr, [facility] [place] [facility] [address] [id number] [place] [address]- 8888 Apr, [facility] [place] [facility] [address] [facility] [id number] [place] [address]- [address]176 Mar, [facility] [place] [facility] [address] [id number] [place] [address]- 6172 Mar, [facility] [place] [facility] [address] [id number] [place] [address]- 9272 Mar, [facility] [place] [facility] [address] [id number] [place] [address]- 5712 Mar, [facility] [place] [facility] [address] [id number] [place] [address]- 4280 Mar, [facility] [place] [facility] [address] [id number], [place] [address] Mar, [facility] [address] [facility] [id number] [place] [address]- [address] Feb, [facility] [address] [facility] [id number] [place] [address]- [address] Feb, [facility] [address] [facility] [id number] [place] [address]- [address] Feb, IMMUNIZATIONS No Known Immunizations SOCIAL HISTORY Never Assessed REASON FOR VISIT MS Contin, Hydrocodone, SOma 07/23 PLAN OF CARE VITAL SIGNS MEDICATIONS Medication Instructions Dosage Frequency Start Date End Date Duration Status Soma 350 mg Orally Once a day 1 tablet as needed 24h Active Hydrocodone-Acetaminophen 10-325 MG Orally every 6 hrs 1 tablet as needed 6h Jul, 28 days Active MS Contin 30 MG Orally every 8 hours 1 tablet 8h Jul, 28 days Active RESULTS No Results [...]
--- OUTSIDE RECORDS SUMMARY | 2018-05-16 07:06 | XMS REPORT ---
Author Author FERNY SILVERIO [facility] Address [address] [place] [address] Care Team Providers Care Drug Room Operator Name Role Phone FERNY SILVERIO Unavailable PROBLEMS Type Condition ICD9-CM Code AAK75-WM Code Onset Dates Condition Status SNOMED Code Problem Hypoxia R09.02 Active 044561973 Problem Port catheter in place Z95.828 Active 991164441 Problem Anxiety F41.9 Active 04045512 Problem Type 2 diabetes mellitus with diabetic peripheral angiopathy without gangrene E11.51 Active 647857558 Problem Pressure ulcer of other site, stage 3 L89.893 Active 534891604 Problem Lumbar radiculopathy, chronic M54.16 Active 095728574 Problem PAD (peripheral artery disease) I73.9 Active 025737548 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 Active 160791908 Problem Recurrent major depressive disorder, in full remission F33.42 Active 412424665 Problem Diabetes E11.9 Active 61289321 Problem Hypertension I10 Active 21023524 Problem Back pain M54.9 Active 253471227 Problem Insulin long-term use Z79.4 Active 581661202 Problem COPD (chronic obstructive pulmonary disease) J44.9 Active 97096450 ALLERGIES No Information ENCOUNTERS Encounter Location Date Diagnosis [facility] [id number], [place] [address] September, Anxiety F41.9 and Back pain M54.9 [facility] [id number] [place] [address] 75921- 9453 September, Diabetes E11.9 ; Hypertension I10 ; COPD (chronic obstructive pulmonary disease) J44.9 and Lumbar radiculopathy, chronic M54.16 [facility] [address], [place] [address] September, Anxiety F41.9 [facility] [id number] [place] [address] 14574- 6495 Aug, [facility] [id number] [place] [address] 65956- 8666 Aug, [facility] [id number] [place] [address] 61990- 7583 Aug, Anxiety F41.9 and Back pain M54.9 [facility] [id number] [place] [address] 77281- 7620 Aug, Medicare annual wellness visit, initial Z00.00 ; COPD ( chronic obstructive pulmonary disease) J44.9 ; PAD (peripheral artery disease) I73.9 ; Insulin long-term use Z79.4 ; Hypertension I10 ; Anxiety F41.9 ; Recurrent major depressive disorder, in full remission F33.42 ; Pressure ulcer of other site, stage 3 L89.893 ; Type 2 diabetes mellitus with diabetic peripheral angiopathy without gangrene E11.51 and 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 [facility] [id number] [place] [address] 46410- 0890 Jul, Back pain M54.9 [facility] [id number] [place] [address] 03170- 6623 Jul, [facility] [id number] [place] [address] 20827- 8927 Jul, Anxiety F41.9 and Back pain M54.9 [place] [id number] [place] [address] 59504- 2853 Jul, Diabetes E11.9 [facility] [id number] [place] [address] 01782- 5040 May, [facility] [id number] [place] [address] 24161- 0487 May, Diabetes E11.9 ; Anxiety F41.9 ; Back pain M54.9 and COPD ( chronic obstructive pulmonary disease) J44.9 [facility] [id number] [address] 5691 May, Back pain M54.9 [facility] [id number] [place] [address] 25746- 1254 May, [facility] [id number] [place] [address] 11317- 6320 Apr, Back pain M54.9 [facility] [address] [address]- 6935 Mar, Back pain M54.9 [facility] [id number] [place] [address] 61600- 1918 Mar, [facility] [id number] [place] [address] 39134- 3781 16 Mar, 2017 [facility] [id number] [place] [address] 11488- 7556 14 Mar, 2017 Radiculopathy of lumbar region M54.16 [facility] [id number] [place] [address] 94687- 0247 13 Mar, 2017 [facility] [address] 46993- 4728 07 Mar, 2017 Encounter for immunization Z23 and Lumbar radiculopathy, chronic M54.16 [facility] [id number] [place] [address] 80500- 8578 Mar, Back pain M54.9 and Anxiety F41.9 [facility] [id number] [place] [address] 21303 -3933 Feb, Acute bilateral low back pain with left-sided sciatica M54.42 and Acute bilateral low back pain with right-sided sciatica M54.41 [facility] [id number] [place] [address] 50129- 5113 Feb, [facility] [id number] [place] [address] 78244- 4223 Feb, Back pain M54.9 [facility] [id number] [place] [address] 50230- 2416 05 Jan, 2017 Back pain M54.9 and Anxiety F41.9 [facility] [id number] [place] [address] 81338- 2396 05 Jan, 2017 Diabetes E11.9 [facility] [id number] [place] [address] 16359- 6572 Dec, Diabetes E11.9 ; Back pain M54.9 ; Anxiety F41.9 and Insulin long-term use Z79.4 [facility] [id number] [place] [address] 49281- 5096 Dec, Anxiety F41.9 [facility] [id number] [place] [address] 83384- 6395 Dec, Back pain M54.9 [facility] [id number] [place] [address] 47726- 9282 Nov, Back pain M54.9 [facility] [id number] [place] [address] 18841- 9130 Oct, Back pain M54.9 and Anxiety F41.9 [facility] [id number] [place] [address] 95426- 7882 September, Back pain M54.9 [facility] [id number] [place] [address] 56107- 8867 September, Back pain M54.9 and Anxiety F41.9 [facility] [id number] [place] [address] 03062- 4956 Aug, Diabetes E11.9 ; Anxiety F41.9 ; Back pain M54.9 and PAD ( peripheral artery disease) I73.9 [facility] [id number] [place] [address] 54148- 0298 Aug, Anxiety F41.9 [facility] [id number] [place] [address] 27379- 8322 Aug, Back pain M54.9 [facility] [id number] [place] [address] 47808- 0395 Jul, Back pain M54.9 [facility] [id number] [place] [address] 78441- 0896 Jul, Back pain M54.9 [facility] [id number] [place] [address] 55550- 5489 Jul, Back pain M54.9 [facility] [id number] [place] [address] 01467- 4890 Jul, Dorsalgia M54.9 [facility] [id number] [place] [address] 82512- 0571 Jul, [facility] [id number] [place] [address] 18895- 8727 May, Back pain M54.9 [facility] [id number] [place] [address] 88269- 7980 May, Diabetes E11.9 ; Anxiety F41.9 ; Port catheter in place Z95.828 ; Encounter for immunization Z23 and Insulin long-term use Z79.4 [facility] [id number] [place] [address] 27635- 3327 Apr, Back pain M54.9 [facility] [id number] [place] [address] 48788- 8963 Apr, Back pain M54.9 [facility] [id number] [place] [address] 71101- 5176 Apr, [facility] [id number] [place] [address] 33117- 7311 Apr, Back pain M54.9 [facility] [id number] [place] [address] 51222- 2342 Mar, COPD (chronic obstructive pulmonary disease) J44.9 [facility] [id number] [address]- 8254 Feb, [facility] [id number] [place] [address] 00066- 9697 30 Jan, 2016 [facility] [address], [place] [address]- 7802 20 Jan, 2016 [facility] [id number] [place] [address] 01695- 5178 07 Jan, 2016 [facility] [address] [place] [address] 19390- 9953 Jan, [facility] [id number] [place] [address] 41684- 6072 Dec, Diabetes E11.9 ; Hypoxia R09.02 and Back pain M54.9 [facility] [id number] [place] [address] 33519- 9289 Dec, [facility] [id number] [place] [address] 28301- 0095 Nov, [facility] [id number] [place] [address] 66246- 1133 Oct, Anxiety F41.9 [facility] [id number] [place] [address] 02046- 7702 Oct, Back pain M54.9 [facility] [address] [place] [address] 32238- 3877 September, Back pain M54.9 [facility] [address], [place] [address]- 5120 September, Diabetes E11.9 [facility] [address], [place] [address]- 0840 September, [facility] [address], [place] [address]- 7392 September, Diabetes E11.9 ; Insulin long-term use Z79.4 and Back pain M54.9 [facility] [id number] [place] [address] 99275- 6288 Aug, Back pain M54.9 [facility] [id number] [place] [address] 57994- 6670 Aug, Back pain M54.9 ; Anxiety F41.9 and Arthropathy, unspecified M12.9 [facility] [address] 00795- 7031 Jul, Back pain M54.9 [facility] [id number] [place] [address] 00658- 3607 Jul, Anxiety F41.9 [facility] [address] 28323- 0804 Jul, Back pain M54.9 [facility] [address] 46729- 1162 Jul, [facility] [id number] [place] [address] 21992- 8689 Jul, [facility] [id number] [place] [address] 80336- 8644 May, Back pain M54.9 ; Diabetes E11.9 ; Insulin long-term use Z79.4 ; COPD (chronic obstructive pulmonary disease) J44.9 and Hypertension I10 [facility] [id number] [place] [address] 34682- 2307 May, Chronic pain G89.29 [facility] [id number] [place] [address] 12112- 4916 Apr, [facility] [id number] [place] [address] 87798- 6120 Apr, [facility] [id number] [place] [address] 79881- 7112 Mar, [facility] [address] [place] [address]- 9637 Mar, Encounter for immunization Z23 and Diabetes E11.9 [facility] [id number] [place] [address]- 3076 Feb, [facility] [id number] [place] [address]- 9551 Feb, [facility] [id number] [place] [address] 77747- 3581 Jan, [facility] [id number] [place] [address] 67097- 4048 Jan, [facility] [id number] [place] [address] 39762- 4383 Dec, [facility] [id number] [place] [address] 90807- 6864 Dec, [facility] [id number] [place] [address] 33197- 9825 Dec, Unspecified arthropathy, site unspecified 716.90 and Diabetes mellitus type 2, uncontrolled 250.02 [facility] [id number] [address]- 2231 Dec, [facility] [id number] [place] [address]- 0265 Nov, [facility] [address], [place] [address]- 2695 Oct, [facility] [address], [place] [address]- 0573 September, [facility] [address], [place] [address]- 0224 September, [facility] [address], [place] [address]- 3531 September, [facility] [address], [place] [address]- 2776 September, [facility] [place] [facility] [address] [id number] [place] [address]- 4630 14 Aug, 2014 [facility] [place] [facility] [address] [id number] [place] [address]- 7578 13 Aug, 2014 [facility] [place] [facility] [address] [id number] [place] [address]- 2966 18 Jul, 2014 [facility] [place] [facility] [address] [id number] [place] [address]- 3214 18 Jul, 2014 [facility] [place] [facility] [address] [id number] [place] [address]- 0357 16 Jul, 2014 [facility] [place] [facility] [address] [id number] [place] [address]- 7234 16 Jul, 2014 [facility] [place] [facility] [address] [id number] [place] [address]- 2495 16 Jul, 2014 [facility] [place] [facility] [address] [id number] [place] [address]- 1555 16 Jul, 2014 [facility] [place] [facility] [address] [id number] [place] [address]- 6651 16 Jul, 2014 [facility] [place] [facility] [address] [id number] [place] [address]- 8264 16 Jul, 2014 [facility] [place] [facility] [address] [id number] [place] [address]- 1438 16 Jul, 2014 [facility] [place] [facility] [address] [id number] [place] [address]- 0239 13 Jul, 2014 [facility] [place] [facility] [address] [id number] [place] [address]- 6488 13 Jul, 2014 [facility] [place] [facility] [address] [id number] [place] [address]- 3047 09 Jul, 2014 [facility] [place] [facility] [address] [id number] [place] [address]- 2549 09 Jul, 2014 [facility] [place] [facility] [address] [id number] [place] [address]- 9420 17 Jul, 2014 [facility] [place] [facility] [address] [id number] [place] [address]- 5593 17 Jul, 2014 [facility] [place] [facility] [address] [facility] [id number] [place] [address]- 7336 16 Jul, 2014 [facility] [place] [facility] [address] [facility] [id number] [place] [address]- 9978 16 Jul, 2014 [facility] [place] [facility] [address] [facility] [id number] [place] [address]- 9221 16 Jul, 2014 [facility] [place] [facility] [address] [id number] [place] [address]- 8668 16 Jul, 2014 [facility] [place] [facility] [address] [facility] [id number] [place] [address]- 4413 16 Jul, 2014 [facility] [place] [facility] [address] [facility] [id number] [place] [address]- 6902 16 Jul, 2014 [facility] [place] [facility] [address] [facility] [id number] [place] [address]- 9312 16 Jul, 2014 [facility] [place] [facility] [address] [facility] [id number] [place] [address]- 0827 16 Jul, 2014 [facility] [place] [facility] [address] [facility] [id number] [place] [address]- 9543 16 Jul, 2014 [facility] [place] [facility] [address] [facility] [id number] [place] [address]- 3816 16 Jul, 2014 [facility] [place] [facility] [address] [facility] [id number] [place] [address]- 254 16 Jul, 2014 [facility] [place] [facility] [address] [facility] [id number] [place] [address]- 2485 16 Jul, 2014 [facility] [place] [facility] [address] [facility] [id number] [place] [address]- 1337 16 Jul, 2014 [facility] [place] [facility] [address] [facility] [id number] [place] [address]- 7464 Jul, [facility] [place] [facility] [address] [id number] [place] [address]- 9277 May, [facility] [place] [facility] [address] [id number] [place] [address]- 2939 May, [facility] [place] [facility] [address] [id number] [place] [address]- 6861 May, [facility] [place] [facility] [address] [id number] [place] [address]- 8356 May, [facility] [place] [facility] [address] [id number] [place] [address]- 0329 May, [facility] [place] [facility] [address] [id number] [place] [address]- 3759 May, [facility] [place] [facility] [address] [id number] [place] [address]- 5655 May, [facility] [place] [facility] [address] [id number] [place] [address]- 3250 May, [facility] [place] [facility] [address] [id number] [place] [address]- 6044 May, [facility] [place] [facility] [address] [id number] [place] [address]- 6631 May, [facility] [place] [facility] [address] [id number] [place] [address]- 2847 Apr, [facility] [place] [facility] [address] [id number] [place] [address]- 0739 Apr, [facility] [place] [facility] [address] [id number] [place] [address]- 7780 Apr, [facility] [place] [facility] [address] [id number] [place] [address]- 0139 Apr, [facility] [place] [facility] [address] [id number] [place] 5258 Apr, [facility] [place] [facility] [address] [id number], [place] [address]- 8827 Apr, [facility] [place] [facility] [address] [id number] [place] [address]- 5962 Mar, [facility] [place] [facility] [address] [id number] [place] [address]- 8331 Mar, [facility] [place] [facility] [address] [id number] [place] [address]- 9485 Mar, [facility] [place] [facility] [address] [id number] [place] [address]- 4405 Mar, [facility] [place] [facility] [address] [id number] [place] [address]- 2521 Mar, [facility] [place] [facility] [address] [id number] [place] [address]- 0416 Mar, [facility] [place] [facility] [address] [id number] [place] [address]- 2105 Mar, [facility] [place] [facility] [address] [id number] [place] [address]- 3843 Mar, [facility] [place] [facility] [address] [id number] [place] [address]- 6612 Mar, [facility] [place] [facility] [address] [id number] [place] [address]- 8503 Mar, [facility] [place] [facility] [address] [id number] [place] [address]- 9564 Mar, [facility] [place] [facility] [address] [id number], [place] [address]- 3355 Feb, [facility] [place] [facility] [address] [id number], [place] [address]- 3498 Feb, [facility] [place] [facility] [address] [id number], [place] [address]- 2096 Feb, [facility] [place] [facility] [address] [id number], [place] [address]- 9946 Feb, [facility] [place] [facility] [address] [id number] [place] [address]- 6236 Feb, [facility] [place] [facility] [address] [id number] [place] [address]- 5529 Feb, [facility] [place] [facility] [address] [id number] [place] [address]- 4847 Feb, [facility] [place] [facility] [address] [id number] [place] [address]- 8053 Feb, [facility] [place] [facility] [address] [id number] [place] [address]- 3753 Feb, [facility] [place] [facility] [address] [id number] [place] [address]- 6358 Feb, [facility] [place] [facility] [address] [id number] [place] [address]- 6917 Jan, [facility] [place] [facility] [address] [id number] [place] [address]- 5555 22 Jan, 2014 [facility] [place] [facility] [address] [id number] [place] [address]- 7627 16 Jan, 2014 [facility] [place] [facility] [address] [id number] [place] [address]- 1128 16 Jan, 2014 [facility] [place] [facility] [address] [id number] [place] [address]- 2530 12 Jan, 2014 [facility] [place] [facility] [address] [id number] [place] [address]- 5131 Jan, [facility] [place] [facility] [address] [id number] [place] [address] Jan, [facility] [place] [facility] [address] [id number] [place] [address] Dec, [facility] [place] [facility] [address] [id number] [place] [address] Dec, [facility] [place] [facility] [address] [id number] [place] [address] Dec, [facility] [place] [facility] [address] [id number] [place] [address] Dec, [facility] [place] [facility] [address] [id number] [place] [address] Dec, [facility] [place] [facility] [address] [id number] [place] [address] Dec, [facility] [place] [facility] [address] [id number] [place] [address] Dec, [facility] [place] [facility] [address] [id number] [place] [address] Dec, [facility] [place] [facility] [address] [id number] [place] [address] Oct, [facility] [place] [facility] [address] [id number] [place] [address] Oct, [facility] [place] [facility] [address] [id number] [place] [address]- [address] September, [facility] [place] [facility] [address] [id number] [place] [address] September, [facility] [place] [facility] [address] [id number] [place] [address] September, [facility] [place] [facility] [address] [id number] [place] [address] September, [facility] [place] [facility] [address] [id number] [place] [address] September, [facility] [place] [facility] [address] [id number] [place] [address] September, [facility] [place] [facility] [address] [id number] [place] [address] September, [facility] [place] [facility] [address] [id number] [place] [address] Aug, [facility] [place] [facility] [address] [id number] [place] [address] 15 Aug, 2013 [facility] [place] [facility] [address] [id number] [place] [address] Jul, [facility] [place] [facility] [address] [id number] [place] [address]- [address] 24 Jul, 2013 [facility] [place] [facility] [address] [id number] [place] [address] Jul, [facility] [place] [facility] [address] [id number] [place] [address] Jul, [facility] [place] [facility] [address] [id number] [place] [address] Jul, [facility] [place] [facility] [address] [facility] [id number] [place] [address] Jul, [facility] [place] [facility] [address] [id number] [place] [address] Jul, [facility] [place] [facility] [address] [id number] [place] [address] Jul, [facility] [place] [facility] [address] [facility] [id number] [place] [address] May, [facility] [place] [facility] [address] [facility] [id number] [place] [address] May, [facility] [place] [facility] [address] [id number] [place] [address] May, [facility] [place] [facility] [address] [id number] [place] [address] May, [facility] [place] [facility] [address] [id number] [place] [address] Apr, [facility] [place] [facility] [address] [id number] [place] [address] Mar, [facility] [place] [facility] [address] [id number] [place] [address] Mar, [facility] [place] [facility] [address] [id number] [place] [address] Mar, [facility] [place] [facility] [address] [id number], [place] [address] Mar, [facility] [place] [facility] [address] [id number] [place] [address] Mar, [facility] [place] [facility] [address] [id number], [place] [address] Mar, [facility] [place] [facility] [address] [id number] [place] [address] Mar, [facility] [place] [facility] [address] [id number], [place] [address] Mar, [facility] [place] [facility] [address] [id number], [place] [address] Mar, [facility] [place] [facility] [address] [id number], [place] [address] Mar, [facility] [place] [facility] [address] [id number], [place] [address] Mar, [facility] [place] [facility] [address] [id number], [place] [address] 04 Mar, 2013 [facility] [place] [facility] [address] [id number], [place] [address] 15 Feb, 2013 [facility] [place] [facility] [address] [id number], [place] [address] 15 Feb, 2013 [facility] [place] [facility] [address] [id number], [place] [address] Feb, [facility] [place] [facility] [address] [id number], [place] [address] 11 Feb, 2013 [facility] [place] [facility] [address] [id number], [place] [address] Feb, [facility] [place] [facility] [address] [id number] [place] [address] Jan, [facility] [address] [id number] [place] [address]- [address] Dec, [facility] [address] [id number] [place] [address] Dec, [facility] [address] [id number] [place] [address] Dec, [facility] [address] [id number] [place] [address] Nov, [facility] [address] [id number] [place] [address] Nov, [facility] [address] [id number] [place] [address] Nov, [facility] [address] [id number] [place] [address] Oct, [facility] [address] [id number] [place] [address] Oct, [facility] [address] [id number] [place] [address] Oct, [facility] [address] [id number] [place] [address] September, [facility] [address] [id number] [place] [address] September, [facility] [address] [id number] [place] [address] September, [facility] [place] [facility] [address] [id number] [place] [address] September, [facility] [place] [facility] [address] [id number] [place] [address] September, [facility] [address] [id number] [place] [address] Aug, [facility] [place] [facility] [address] [id number] [place] [address] Aug, [facility] [address] [id number] [place] [address] Aug, [facility] [address] [id number] [place] [address] Jul, [facility] [address] [id number] [place] [address] Jul, [facility] [address] [id number] [place] [address] Jul, [facility] [address] [id number] [place] [address] Jul, [facility] [address] [id number] [place] [address] Jul, [facility] [address] [id number] [place] [address] Jul, [facility] [address] [id number] [place] [address] Jul, [facility] [address] [id number] [place] [address] May, [facility] [address] [id number] [place] [address] May, [facility] [address] [id number], [place] [address] May, [facility] [address] [id number] [place] [address] Apr, [facility] [address] [id number] [place] [address] Apr, [facility] [address] [id number] [place] [address] Apr, [facility] [address] [id number], [place] [address] Apr, [facility] [place] [facility] [address] [id number] [place] [address] Apr, [facility] [place] [facility] [address] [id number] [place] [address] Mar, [facility] [place] [facility] [address] [facility] [id number] [place] [address] Mar, [facility] [place] [facility] [address] [id number] [place] [address] Mar, [facility] [place] [facility] [address] [id number] [place] [address] Mar, [facility] [place] [facility] [address] [id number] [place] [address] Feb, [facility] [place] [facility] [address] [facility] [id number] [place] [address] Feb, [facility] [place] [facility] [address] [facility] [id number] [place] [address] Feb, [facility] [place] [facility] [address] [facility] [id number] [place] [address] Feb, [facility] [place] [facility] [address] [facility] [id number] [place] [address] Feb, [facility] [place] [facility] [address] [facility] [id number] [place] [address] Jan, [facility] [place] [facility] [address] [facility] [id number], [place] [address] Dec, [facility] [place] [facility] [address] [id number] [place] [address] Dec, [facility] [place] [facility] [address] [facility] [id number] [place] [address] Dec, [facility] [place] [facility] [address] [facility] [id number] [place] [address] Nov, [facility] [place] [facility] [address] [id number] [place] [address] Nov, [facility] [place] [facility] [address] [id number] [place] [address] Nov, [facility] [place] [facility] [address] [id number] [place] [address] Oct, [facility] [place] [facility] [address] [id number] [place] [address] Oct, [facility] [place] [facility] [address] [id number] [place] [address] 9565 Oct, [facility] [place] [facility] [address] [id number] [place] [address]15 Oct, [facility] [place] [facility] [address] [id number] [place] [address] September, [facility] [place] [facility] [address] [id number] [place] [address]36 September, [facility] [place] [facility] [address] [id number] [place] [address] Aug, [facility] [place] [facility] [address] [id number] [place] [address] Aug, [facility] [place] [facility] [address] [id number] [place] [address] Aug, [facility] [place] [facility] [address] [id number] [place] [address]70 Aug, [facility] [place] [facility] [address] [id number] [place] [address]- [address] Aug, [facility] [place] [facility] [address] [id number] [place] [address] 7472 Aug, [facility] [place] [facility] [address] [id number] [place] [address]76 Aug, [facility] [place] [facility] [address] [id number] [place] [address]- [address] Jul, [facility] [place] [facility] [address] [id number] [place] [address]108 Jul, [facility] [place] [facility] [address] [id number] [place] [address] Jul, [facility] [place] [facility] [address] [id number] [place] [address]- 2494 May, [facility] [place] [facility] [address] [id number] [place] [address]- [address] May, [facility] [place] [facility] [address] [id number] [place] [address]- 0905 May, [facility] [place] [facility] [address] [id number] [place] [address]- 4990 Apr, [facility] [place] [facility] [address] [id number] [place] [address]- 4275 Apr, [facility] [place] [facility] [address] [id number] [place] [address]- [address]157 Mar, [facility] [place] [facility] [address] [id number] [place] [address]- 7246 Mar, [facility] [place] [facility] [address] [id number] [place] [address]- [address]185 Mar, [facility] [place] [facility] [address] [id number], [place] [address]- [address] Mar, [facility] [place] [facility] [address] [id number], [place] [address]- [address] Mar, [facility] [place] [facility] [address] [id number] [place] [address]- 9692 Mar, [facility] [place] [facility] [address] [id number], [place] [address]- [address] Feb, [facility] [place] [facility] [address] [id number] [place] [address]- [address]276 Feb, [facility] [place] [facility] [address] [facility] [id number] [place] [address]- [address] Feb, IMMUNIZATIONS No Known Immunizations SOCIAL HISTORY Never Assessed REASON FOR VISIT ms Contin, Hydrocodone, ativan, 11-3 PLAN OF CARE VITAL SIGNS MEDICATIONS Medication Instructions Dosage Frequency Start Date End Date Duration Status Alprazolam 1 MG Orally Three times a day 1 tablet 8h 28 days Active Hydrocodone-Acetaminophen 10-325 MG Orally every 6 hrs 1 tablet as needed 6h Mar, 28 days Active MS Contin 30 MG Orally every 8 hours 1 tablet 8h Mar, 28 days Active RESULTS No Results [...]
--- OUTSIDE RECORDS SUMMARY | 2018-05-16 07:06 | XMS REPORT ---
Author Author FERNY SILVERIO [facility] Address [address] [place] [address] Care Team Providers Care Book Illustrator Name Role Phone FERNY SILVERIO Unavailable PROBLEMS Type Condition ICD9-CM Code BXB75-OS Code Onset Dates Condition Status SNOMED Code Problem Hypoxia R09.02 Active 030319163 Problem Port catheter in place Z95.828 Active 796026652 Problem Anxiety F41.9 Active 72889428 Problem Type 2 diabetes mellitus with diabetic peripheral angiopathy without gangrene E11.51 Active 627812259 Problem Pressure ulcer of other site, stage 3 L89.893 Active 893754277 Problem Lumbar radiculopathy, chronic M54.16 Active 214623705 Problem PAD (peripheral artery disease) I73.9 Active 204721378 Problem 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 542156151 Problem Recurrent major depressive disorder, in full remission F33.42 Active 258580504 Problem Diabetes E11.9 Active 49289123 Problem Hypertension I10 Active 87229675 Problem Back pain M54.9 Active 944064680 Problem Insulin long-term use Z79.4 Active 133681303 Problem COPD (chronic obstructive pulmonary disease) J44.9 Active 95018036 ALLERGIES No Information ENCOUNTERS Encounter Location Date Diagnosis [facility] [id number] [address] September, Anxiety F41.9 and Back pain M54.9 [facility] [id number] [place] [address] 74828- 0268 September, Diabetes E11.9 ; Hypertension I10 ; COPD (chronic obstructive pulmonary disease) J44.9 and Lumbar radiculopathy, chronic M54.16 [facility] [address], [place] [address] September, Anxiety F41.9 [facility] [id number] [place] [address] 78513- 7584 Aug, [facility] [id number] [place] [address] 22858- 3631 Aug, [facility] [id number] [place] [address] 72148- 0633 Aug, Anxiety F41.9 and Back pain M54.9 [facility] [id number] [place] [address] 05841- 9568 Aug, Medicare annual wellness visit, initial Z00.00 ; COPD ( chronic obstructive pulmonary disease) J44.9 ; PAD (peripheral artery disease) I73.9 ; Insulin long-term use Z79.4 ; Hypertension I10 ; Anxiety F41.9 ; Recurrent major depressive disorder, in full remission F33.42 ; Pressure ulcer of other site, stage 3 L89.893 ; Type 2 diabetes mellitus with diabetic peripheral angiopathy without gangrene E11.51 and 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 [facility] [id number] [place] [address] 10440- 3332 Jul, Back pain M54.9 [facility] [id number] [place] [address] 00520- 6783 Jul, [facility] [id number] [place] [address] 86544- 3572 Jul, Anxiety F41.9 and Back pain M54.9 [facility] [id number] [place] [address] 77166- 7062 Jul, Diabetes E11.9 [facility] [id number] [place] [address] 05119- 3954 May, [facility] [id number] [place] [address] 08584- 1660 May, Diabetes E11.9 ; Anxiety F41.9 ; Back pain M54.9 and COPD ( chronic obstructive pulmonary disease) J44.9 [facility] [id number] [address] 5672 May, Back pain M54.9 [facility] [id number] [place] [address] 10777- 4812 May, [facility] [id number] [place] [address] 91368- 0554 Apr, Back pain M54.9 [facility] [address] 88848- 6466 Mar, Back pain M54.9 [facility] [id number] [place] [address] 45617- 4601 Mar, [facility] [id number] [place] [address] 20806- 5988 16 Mar, 2017 [facility] [id number] [place] [address] 48217- 6203 14 Mar, 2017 Radiculopathy of lumbar region M54.16 [facility] [id number] [place] [address] 22425- 0308 13 Mar, 2017 [facility] [address] 73680- 8491 07 Mar, 2017 Encounter for immunization Z23 and Lumbar radiculopathy, chronic M54.16 [facility] [id number] [place] [address] 37764- 5349 Mar, Back pain M54.9 and Anxiety F41.9 [facility] [id number] [place] [address] 71620 -3702 Feb, Acute bilateral low back pain with left-sided sciatica M54.42 and Acute bilateral low back pain with right-sided sciatica M54.41 [facility] [id number] [place] [address] 20791- 8936 Feb, [facility] [id number] [place] [address] 46885- 8841 Feb, Back pain M54.9 [facility] [id number] [place] [address] 62977- 2237 05 Jan, 2017 Back pain M54.9 and Anxiety F41.9 [facility] [id number] [place] [address] 81112- 2309 05 Jan, 2017 Diabetes E11.9 [facility] [id number] [place] [address] 95563- 3089 Dec, Diabetes E11.9 ; Back pain M54.9 ; Anxiety F41.9 and Insulin long-term use Z79.4 [facility] [id number] [place] [address] 35588- 8664 Dec, Anxiety F41.9 [facility] [id number] [place] [address] 37306- 3057 Dec, Back pain M54.9 [facility] [id number] [place] [address] 09262- 9836 Nov, Back pain M54.9 [facility] [id number] [place] [address] 66637- 2473 Oct, Back pain M54.9 and Anxiety F41.9 [facility] [id number] [place] [address] 23055- 5849 September, Back pain M54.9 [facility] [id number] [place] [address] 54323- 8734 September, Back pain M54.9 and Anxiety F41.9 [facility] [id number] [place] [address] 33249- 4330 Aug, Diabetes E11.9 ; Anxiety F41.9 ; Back pain M54.9 and PAD ( peripheral artery disease) I73.9 [facility] [id number] [place] [address] 45493- 6364 Aug, Anxiety F41.9 [facility] [id number] [place] [address] 05430- 9091 Aug, Back pain M54.9 [facility] [id number] [place] [address] 62785- 7367 Jul, Back pain M54.9 [facility] [id number] [place] [address] 43932- 7766 Jul, Back pain M54.9 [facility] [id number] [place] [address] 79597- 8735 Jul, Back pain M54.9 [facility] [id number] [place] [address] 28930- 8263 Jul, Dorsalgia M54.9 [facility] [id number] [place] [address] 13499- 4970 Jul, [facility] [id number] [place] [address] 19862- 6966 May, Back pain M54.9 [facility] [id number] [place] [address] 33860- 8231 May, Diabetes E11.9 ; Anxiety F41.9 ; Port catheter in place Z95.828 ; Encounter for immunization Z23 and Insulin long-term use Z79.4 [facility] [id number] [place] [address] 98061- 5035 Apr, Back pain M54.9 [facility] [id number] [place] [address] 47802- 9352 Apr, Back pain M54.9 [facility] [id number] [place] [address] 08916- 8086 Apr, [facility] [id number] [place] [address] 45911- 6594 Apr, Back pain M54.9 [facility] [id number] [place] [address] 25551- 6293 Mar, COPD (chronic obstructive pulmonary disease) J44.9 [facility] [id number] [address]- 8573 Feb, [facility] [id number] [place] [address] 82422- 1648 30 Jan, 2016 [facility] [id number], [place] [address]- 2907 20 Jan, 2016 [facility] [id number] [place] [address] 81787- 1161 07 Jan, 2016 [facility] [id number] [place] [address] 87652- 4112 Jan, [facility] [id number] [place] [address] 10786- 5514 Dec, Diabetes E11.9 ; Hypoxia R09.02 and Back pain M54.9 [facility] [id number] [place] [address] 74225- 0825 Dec, [facility] [id number] [place] [address] 68924- 0436 Nov, [facility] [id number] [place] [address] 14179- 0615 Oct, Anxiety F41.9 [facility] [id number] [place] [address] 02463- 2594 Oct, Back pain M54.9 [facility] [id number] [place] [address] 31301- 3468 September, Back pain M54.9 [facility] [id number] [address]- 5899 September, Diabetes E11.9 [facility] [id number], [place] [address]- 4028 September, [facility] [address] [address]- 0131 September, Diabetes E11.9 ; Insulin long-term use Z79.4 and Back pain M54.9 [facility] [id number] [place] [address] 81681- 3596 Aug, Back pain M54.9 [facility] [id number] [place] [address] 55075- 4554 Aug, Back pain M54.9 ; Anxiety F41.9 and Arthropathy, unspecified M12.9 [facility] [address] 59968- 1246 Jul, Back pain M54.9 [facility] [id number] [place] [address] 61118- 4956 Jul, Anxiety F41.9 [facility] [address] 43890- 8067 Jul, Back pain M54.9 [facility] [address] 35423- 1229 Jul, [facility] [id number] [place] [address] 92140- 6910 Jul, [facility] [id number] [place] [address] 64295- 5466 May, Back pain M54.9 ; Diabetes E11.9 ; Insulin long-term use Z79.4 ; COPD (chronic obstructive pulmonary disease) J44.9 and Hypertension I10 [facility] [id number] [place] [address] 30119- 2516 May, Chronic pain G89.29 [facility] [id number] [place] [address] 91858- 9289 Apr, [facility] [id number] [place] [address] 08487- 0156 Apr, [facility] [id number] [place] [address] 17816- 8266 Mar, [facility] [address] [place] [address]- 8775 Mar, Encounter for immunization Z23 and Diabetes E11.9 [facility] [id number], [place] [address]- 1550 Feb, [facility] [id number] [address]- 4969 Feb, [facility] [id number] [place] [address] 20880- 9226 Jan, [facility] [id number] [place] [address] 94415- 6073 Jan, [facility] [id number] [place] [address] 28338- 8682 Dec, [facility] [id number] [place] [address] 62739- 7314 Dec, [facility] [id number] [place] [address] 08639- 5928 Dec, Unspecified arthropathy, site unspecified 716.90 and Diabetes mellitus type 2, uncontrolled 250.02 [facility] [id number] [address]- 6924 Dec, [facility] [id number] [address]- 2363 Nov, [facility] [address], [place] [address]- 6132 Oct, [facility] [address], [place] [address]- 0978 September, [facility] [id number], [place] [address]- 7512 September, [facility] [address] [address]- 7157 September, [facility] [address] [address]- 8137 September, [facility] [place] [facility] [address] [id number] [place] [address]- 6294 14 Aug, 2014 [facility] [place] [facility] [address] [id number] [place] [address]- 0465 13 Aug, 2014 [facility] [place] [facility] [address] [id number] [place] [address]- 8790 18 Jul, 2014 [facility] [place] [facility] [address] [id number] [place] [address]- 3139 18 Jul, 2014 [facility] [place] [facility] [address] [id number] [place] [address]- 2225 16 Jul, 2014 [facility] [place] [facility] [address] [id number] [place] [address]- 3648 16 Jul, 2014 [facility] [place] [facility] [address] [id number] [place] [address]- 2573 16 Jul, 2014 [facility] [place] [facility] [address] [id number] [place] [address]- 1716 16 Jul, 2014 [facility] [place] [facility] [address] [id number] [place] [address]- 3857 16 Jul, 2014 [facility] [place] [facility] [address] [id number] [place] [address]- 0977 16 Jul, 2014 [facility] [place] [facility] [address] [id number] [place] [address]- 7086 16 Jul, 2014 [facility] [place] [facility] [address] [id number] [place] [address]- 8965 13 Jul, 2014 [facility] [place] [facility] [address] [id number] [place] [address]- 2940 13 Jul, 2014 [facility] [place] [facility] [address] [id number] [place] [address]- 6962 09 Jul, 2014 [facility] [place] [facility] [address] [id number] [place] [address]- 7822 09 Jul, 2014 [facility] [place] [facility] [address] [id number] [place] [address]- 7538 17 Jul, 2014 [facility] [place] [facility] [address] [id number] [place] [address]- 4302 17 Jul, 2014 [facility] [place] [facility] [address] [facility] [id number] [place] [address]- 3056 16 Jul, 2014 [facility] [place] [facility] [address] [facility] [id number] [place] [address]- 3681 16 Jul, 2014 [facility] [place] [facility] [address] [facility] [id number] [place] [address]- 7839 16 Jul, 2014 [facility] [place] [facility] [address] [id number] [place] [address]- 7666 16 Jul, 2014 [facility] [place] [facility] [address] [facility] [id number] [place] [address]- 5207 16 Jul, 2014 [facility] [place] [facility] [address] [facility] [id number] [place] [address]- 3248 16 Jul, 2014 [facility] [place] [facility] [address] [facility] [id number] [place] [address]- 5773 16 Jul, 2014 [facility] [place] [facility] [address] [facility] [id number] [place] [address]- 2384 16 Jul, 2014 [facility] [place] [facility] [address] [facility] [id number] [place] [address]- 2031 16 Jul, 2014 [facility] [place] [facility] [address] [facility] [id number] [place] [address]- 1086 16 Jul, 2014 [facility] [place] [facility] [address] [facility] [id number] [place] [address]- 2542 16 Jul, 2014 [facility] [place] [facility] [address] [facility] [id number] [place] [address]- 5294 16 Jul, 2014 [facility] [place] [facility] [address] [facility] [id number] [place] [address]- 5062 16 Jul, 2014 [facility] [place] [facility] [address] [facility] [id number] [place] [address]- 2150 Jul, [facility] [place] [facility] [address] [id number] [place] [address]- 1807 May, [facility] [place] [facility] [address] [id number] [place] [address]- 1137 May, [facility] [place] [facility] [address] [id number] [place] [address]- 8991 May, [facility] [place] [facility] [address] [id number] [place] [address]- 7267 May, [facility] [place] [facility] [address] [id number] [place] [address]- 4191 May, [facility] [place] [facility] [address] [id number] [place] [address]- 9479 May, [facility] [place] [facility] [address] [id number] [place] [address]- 8035 May, [facility] [place] [facility] [address] [id number] [place] [address]- 2675 May, [facility] [place] [facility] [address] [id number] [place] [address]- 7619 May, [facility] [place] [facility] [address] [id number] [place] [address]- 5167 May, [facility] [place] [facility] [address] [id number] [place] [address]- 2303 Apr, [facility] [place] [facility] [address] [id number] [place] [address]- 6108 Apr, [facility] [place] [facility] [address] [id number] [place] [address]- 1867 Apr, [facility] [place] [facility] [address] [id number] [place] [address]- 7378 Apr, [facility] [place] [facility] [address] [id number] [place] 7434 Apr, [facility] [place] [facility] [address] [id number], [place] [address]- 0732 Apr, [facility] [place] [facility] [address] [id number] [place] [address]- 3172 Mar, [facility] [place] [facility] [address] [id number] [place] [address]- 7542 Mar, [facility] [place] [facility] [address] [id number] [place] [address]- 8667 Mar, [facility] [place] [facility] [address] [id number] [place] [address]- 8648 Mar, [facility] [place] [facility] [address] [id number] [place] [address]- 9038 Mar, [facility] [place] [facility] [address] [id number] [place] [address]- 1305 Mar, [facility] [place] [facility] [address] [id number] [place] [address]- 9252 Mar, [facility] [place] [facility] [address] [id number] [place] [address]- 3609 Mar, [facility] [place] [facility] [address] [id number] [place] [address]- 7077 Mar, [facility] [place] [facility] [address] [id number] [place] [address]- 6314 Mar, [facility] [place] [facility] [address] [id number] [place] [address]- 2018 Mar, [facility] [place] [facility] [address] [id number] [address]- 3692 Feb, [facility] [place] [facility] [address] [id number], [place] [address]- 9128 Feb, [facility] [place] [facility] [address] [id number], [place] [address]- 9082 Feb, [facility] [place] [facility] [address] [id number], [place] [address]- 5807 Feb, [facility] [place] [facility] [address] [id number] [place] [address]- 2619 Feb, [facility] [place] [facility] [address] [id number] [place] [address]- 0449 Feb, [facility] [place] [facility] [address] [id number] [place] [address]- 4447 Feb, [facility] [place] [facility] [address] [id number] [place] [address]- 0878 Feb, [facility] [place] [facility] [address] [id number] [place] [address] Feb, [facility] [place] [facility] [address] [id number] [place] [address] Feb, [facility] [place] [facility] [address] [id number] [place] [address] Jan, [facility] [place] [facility] [address] [id number] [place] [address] 22 Jan, 2014 [facility] [place] [facility] [address] [id number] [place] [address] 16 Jan, 2014 [facility] [place] [facility] [address] [id number] [place] [address] 16 Jan, 2014 [facility] [place] [facility] [address] [id number] [place] [address] 12 Jan, 2014 [facility] [place] [facility] [address] [id number] [place] [address] Jan, [facility] [place] [facility] [address] [id number] [place] [address] Jan, [facility] [place] [facility] [address] [id number] [place] [address] Dec, [facility] [place] [facility] [address] [id number] [place] [address] Dec, [facility] [place] [facility] [address] [id number] [place] [address] Dec, [facility] [place] [facility] [address] [id number] [place] [address] Dec, [facility] [place] [facility] [address] [id number] [place] [address] Dec, [facility] [place] [facility] [address] [id number] [place] [address] Dec, [facility] [place] [facility] [address] [id number] [place] [address] Dec, [facility] [place] [facility] [address] [id number] [place] [address] Dec, [facility] [place] [facility] [address] [id number] [place] [address] Oct, [facility] [place] [facility] [address] [id number] [place] [address] Oct, [facility] [place] [facility] [address] [id number] [place] [address] September, [facility] [place] [facility] [address] [id number] [place] [address] September, [facility] [place] [facility] [address] [id number] [place] [address] September, [facility] [place] [facility] [address] [id number] [place] [address] September, [facility] [place] [facility] [address] [id number] [place] [address] September, [facility] [place] [facility] [address] [id number] [place] [address] September, [facility] [place] [facility] [address] [id number] [place] [address] September, [facility] [place] [facility] [address] [id number] [place] [address] Aug, [facility] [place] [facility] [address] [id number] [place] [address] 15 Aug, 2013 [facility] [place] [facility] [address] [id number] [place] [address] Jul, [facility] [place] [facility] [address] [id number] [place] [address] 24 Jul, 2013 [facility] [place] [facility] [address] [id number] [place] [address] Jul, [facility] [place] [facility] [address] [id number] [place] [address] Jul, [facility] [place] [facility] [address] [id number] [place] [address] Jul, [facility] [place] [facility] [address] [facility] [id number] [place] [address] Jul, [facility] [place] [facility] [address] [id number] [place] [address] Jul, [facility] [place] [facility] [address] [id number] [place] [address] Jul, [facility] [place] [facility] [address] [facility] [id number] [place] [address] May, [facility] [place] [facility] [address] [facility] [id number] [place] [address]84 May, [facility] [place] [facility] [address] [id number] [place] [address]70 May, [facility] [place] [facility] [address] [id number] [place] [address] May, [facility] [place] [facility] [address] [id number] [place] [address] Apr, [facility] [place] [facility] [address] [id number] [place] [address] Mar, [facility] [place] [facility] [address] [id number] [place] [address] Mar, [facility] [place] [facility] [address] [id number] [place] [address] Mar, [facility] [place] [facility] [address] [id number] [address] Mar, [facility] [place] [facility] [address] [id number] [place] [address] 1824 Mar, [facility] [place] [facility] [address] [id number] [address] Mar, [facility] [place] [facility] [address] [id number] [place] [address] 8948 Mar, [facility] [place] [facility] [address] [id number] [address] Mar, [facility] [place] [facility] [address] [id number] [address] Mar, [facility] [place] [facility] [address] [id number] [address] 3[address] Mar, [facility] [place] [facility] [address] [id number] [address] Mar, [facility] [place] [facility] [address] [id number] [address] 04 Mar, 2013 [facility] [place] [facility] [address] [id number] [address] 15 Feb, 2013 [facility] [place] [facility] [address] [id number] [address] 15 Feb, 2013 [facility] [place] [facility] [address] [id number] [address] Feb, [facility] [place] [facility] [address] [id number] [address]36 11 Feb, 2013 [facility] [place] [facility] [address] [id number] [address] Feb, [facility] [place] [facility] [address] [id number] [place] [address] Jan, [facility] [address] [id number] [place] [address] Dec, [facility] [address] [id number] [place] [address] 1196 Dec, [facility] [address] [id number] [place] [address] Dec, [facility] [address] [id number] [place] [address] Nov, [facility] [address] [id number] [place] [address] Nov, [facility] [address] [id number] [place] [address] 4565 Nov, [facility] [address] [id number] [place] [address] 57[address] Oct, [facility] [address] [id number] [place] [address] 9[address] Oct, [facility] [address] [id number] [place] [address] Oct, [facility] [address] [id number] [place] [address] 28[address] September, [facility] [address] [id number] [place] [address] 3896 September, [facility] [address] [id number] [place] [address] September, [facility] [place] [facility] [address] [id number] [place] [address] September, [facility] [place] [facility] [address] [id number] [place] [address] September, [facility] [address] [id number] [place] [address] 4702 Aug, [facility] [place] [facility] [address] [id number] [place] [address] Aug, [facility] [address] [id number] [place] [address] 6861 Aug, [facility] [address] [id number] [place] [address] Jul, [facility] [address] [id number] [place] [address]- 9569 Jul, [facility] [address] [id number] [place] [address] 8762 Jul, [facility] [address] [id number] [place] [address]- 5824 Jul, [facility] [address] [id number] [place] [address] Jul, [facility] [address] [id number] [place] [address] 1039 Jul, [facility] [address] [id number] [place] [address]- 4960 Jul, [facility] [address] [id number] [place] [address] 2358 May, [facility] [address] [id number] [place] [address]- 9065 May, [facility] [address] [id number] [address]68 May, [facility] [address] [id number] [place] [address] 5734 Apr, [facility] [address] [id number] [place] [address]- 4096 Apr, [facility] [address] [id number] [place] [address]- 4263 Apr, [facility] [address] [id number] [address] 4706 Apr, [facility] [place] [facility] [address] [id number] [place] [address]- 6160 Apr, [facility] [place] [facility] [address] [id number] [place] [address]- 3515 Mar, [facility] [place] [facility] [address] [facility] [id number] [place] [address]- 3516 Mar, [facility] [place] [facility] [address] [id number] [place] [address]- 7969 Mar, [facility] [place] [facility] [address] [id number] [place] [address]- 1403 Mar, [facility] [place] [facility] [address] [id number] [place] [address]- 6671 Feb, [facility] [place] [facility] [address] [facility] [id number] [place] [address]- 3804 Feb, [facility] [place] [facility] [address] [facility] [id number] [place] [address]- 9022 Feb, [facility] [place] [facility] [address] [facility] [id number] [place] [address]- 6545 Feb, [facility] [place] [facility] [address] [facility] [id number] [place] [address]- 7613 Feb, [facility] [place] [facility] [address] [facility] [id number] [place] [address]- 2185 Jan, [facility] [place] [facility] [address] [facility] [id number] [address] 9134 Dec, [facility] [place] [facility] [address] [id number] [place] [address]- 0842 Dec, [facility] [place] [facility] [address] [facility] [id number] [place] [address]- 2168 Dec, [facility] [place] [facility] [address] [facility] [id number] [place] [address]- 8676 Nov, [facility] [place] [facility] [address] [id number] [place] [address]- 6044 Nov, [facility] [place] [facility] [address] [id number] [place] [address]- 5845 Nov, [facility] [place] [facility] [address] [id number] [place] [address]- 8836 Oct, [facility] [place] [facility] [address] [id number] [place] [address]- 2984 Oct, [facility] [place] [facility] [address] [id number] [place] [address]- 8072 Oct, [facility] [place] [facility] [address] [id number] [place] [address]- 3399 Oct, [facility] [place] [facility] [address] [id number] [place] [address]- 9896 September, [facility] [place] [facility] [address] [id number] [place] [address]- 3541 September, [facility] [place] [facility] [address] [id number] [place] [address]- 6250 Aug, [facility] [place] [facility] [address] [id number] [place] [address]- 2709 Aug, [facility] [place] [facility] [address] [id number] [place] [address]- 2039 Aug, [facility] [place] [facility] [address] [id number] [place] [address]- 2319 Aug, [facility] [place] [facility] [address] [id number] [place] [address]- 6433 Aug, [facility] [place] [facility] [address] [id number] [place] [address]- 9420 Aug, [facility] [place] [facility] [address] [id number] [place] [address]- 2456 Aug, [facility] [place] [facility] [address] [id number] [place] [address]- 2614 Jul, [facility] [place] [facility] [address] [id number] [place] [address]- 8355 Jul, [facility] [place] [facility] [address] [id number] [place] [address]- 4801 Jul, [facility] [place] [facility] [address] [id number] [place] [address]- 1360 May, [facility] [place] [facility] [address] [id number] [place] [address]- 5046 May, [facility] [place] [facility] [address] [id number] [place] [address]- 5928 May, [facility] [place] [facility] [address] [id number] [place] [address]- 6012 Apr, [facility] [place] [facility] [address] [id number] [place] [address]- 4773 Apr, [facility] [place] [facility] [address] [id number] [place] [address]- 2074 Mar, [facility] [place] [facility] [address] [id number] [place] [address]- 6874 Mar, [facility] [place] [facility] [address] [id number] [place] [address]- 3012 Mar, [facility] [place] [facility] [address] [id number] [address]- 0968 Mar, [facility] [place] [facility] [address] [id number] [address]- 2598 Mar, [facility] [place] [facility] [address] [id number] [place] [address]- 4853 Mar, [facility] [place] [facility] [address] [id number], [place] [address]- 7735 Feb, [facility] [place] [facility] [address] [id number] [place] [address]- 9305 Feb, [facility] [place] [facility] [address] [facility] [id number] [place] [address]- [address]70 14 Feb, 2011 IMMUNIZATIONS No Known Immunizations SOCIAL HISTORY Never Assessed REASON FOR VISIT Medication refill request PLAN OF CARE VITAL SIGNS MEDICATIONS Medication Instructions Dosage Frequency Start Date End Date Duration Status Lyrica 225 Orally Twice a day 1 [...]
--- OUTSIDE RECORDS SUMMARY | 2018-05-16 07:07 | XMS REPORT ---
[facility] Address [address] [place] [address] Care Team Providers Care Lead Housekeeper Name Role Phone FERNY SILVERIO Unavailable PROBLEMS Type Condition ICD9-CM Code POL55-OM Code Onset Dates Condition Status SNOMED Code Problem Hypoxia R09.02 Active 422965683 Problem Port catheter in place Z95.828 Active 348587343 Problem Anxiety F41.9 Active 01104846 Problem Type 2 diabetes mellitus with diabetic peripheral angiopathy without gangrene E11.51 Active 787705566 Problem Pressure ulcer of other site, stage 3 L89.893 Active 020040446 Problem Lumbar radiculopathy, chronic M54.16 Active 454648449 Problem PAD (peripheral artery disease) I73.9 Active 777329647 Problem 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 Active 663856593 Problem Recurrent major depressive disorder, in full remission F33.42 Active 957629463 Problem Diabetes E11.9 Active 54836325 Problem Hypertension I10 Active 32175671 Problem Back pain M54.9 Active 655209414 Problem Insulin long-term use Z79.4 Active 627868739 Problem COPD (chronic obstructive pulmonary disease) J44.9 Active 79218833 ALLERGIES No Information ENCOUNTERS Encounter Location Date Diagnosis [facility] [id number], [place] [address] September, Anxiety F41.9 and Back pain M54.9 [facility] [id number] [place] [address] 02054- 2207 September, Diabetes E11.9 ; Hypertension I10 ; COPD (chronic obstructive pulmonary disease) J44.9 and Lumbar radiculopathy, chronic M54.16 [facility] [address], [place] [address] September, Anxiety F41.9 [facility] [id number] [place] [address] 12167- 2965 Aug, [facility] [id number] [place] [address] 73712- 9459 Aug, [facility] [id number] [place] [address] 43479- 6796 Aug, Anxiety F41.9 and Back pain M54.9 [facility] [id number] [place] [address] 72246- 0540 Aug, Medicare annual wellness visit, initial Z00.00 [...] peripheral angiopathy without gangrene E11.51 and 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 [facility] [id number] [place] [address] 99882- 2075 Jul, Back pain M54.9 [facility] [id number] [place] [address] 16964- 1200 Jul, [facility] [facility] [id number] [place] [address] 31342- 2756 Jul, Anxiety F41.9 and Back pain M54.9 [place] [id number] [place] [address] 07108- 8304 Jul, Diabetes E11.9 [facility] [facility] [id number] [place] [address] 97991- 1194 May, [facility] [id number] [place] [address] 13159- 3286 May, Diabetes E11.9 ; Anxiety F41.9 ; Back pain M54.9 and COPD ( chronic obstructive pulmonary disease) J44.9 [facility] [id number], [place] [address] 3567 May, Back pain M54.9 [facility] [id number] [place] [address] 60045- 7277 May, [facility] [id number] [place] [address] 39874- 8663 Apr, Back pain M54.9 [facility] [address] 13455- 4426 Mar, Back pain M54.9 [facility] [id number] [place] [address] 63605- 3962 Mar, [facility] [id number] [place] [address] 80176- 2918 16 Mar, 2017 [facility] [id number] [place] [address] 97186- 9903 14 Mar, 2017 Radiculopathy of lumbar region M54.16 [facility] [id number] [place] [address] 87943- 2048 13 Mar, 2017 [facility] [address] 43046- 7871 07 Mar, 2017 Encounter for immunization Z23 and Lumbar radiculopathy, chronic M54.16 [facility] [id number] [place] [address] 17467- 8313 Mar, Back pain M54.9 and Anxiety F41.9 [facility] [id number] [place] [address] 47062 -0289 Feb, Acute bilateral low back pain with left-sided sciatica M54.42 and Acute bilateral low back pain with right-sided sciatica M54.41 [facility] [id number] [place] [address] 52516- 7295 Feb, [facility] [id number] [place] [address] 56667- 7489 Feb, Back pain M54.9 [facility] [id number] [place] [address] 23349- 9978 05 Jan, 2017 Back pain M54.9 and Anxiety F41.9 [facility] [id number] [place] [address] 17572- 0195 05 Jan, 2017 Diabetes E11.9 [facility] [id number] [place] [address] 88948- 0863 Dec, Diabetes E11.9 ; Back pain M54.9 ; Anxiety F41.9 and Insulin long-term use Z79.4 [facility] [id number] [place] [address] 91575- 8109 Dec, Anxiety F41.9 [facility] [id number] [place] [address] 65409- 6328 Dec, Back pain M54.9 [facility] [id number] [place] [address] 67350- 5586 Nov, Back pain M54.9 [facility] [id number] [place] [address] 68994- 8865 Oct, Back pain M54.9 and Anxiety F41.9 [facility] [id number] [place] [address] 53952- 5502 September, Back pain M54.9 [facility] [id number] [place] [address] 77820- 3508 September, Back pain M54.9 and Anxiety F41.9 [facility] [id number] [place] [address] 76894- 6687 Aug, Diabetes E11.9 ; Anxiety F41.9 ; Back pain M54.9 and PAD ( peripheral artery disease) I73.9 [facility] [id number] [place] [address] 22762- 4487 Aug, Anxiety F41.9 [facility] [id number] [place] [address] 15028- 4217 Aug, Back pain M54.9 [facility] [id number] [place] [address] 98393- 8872 Jul, Back pain M54.9 [facility] [id number] [place] [address] 10058- 0216 Jul, Back pain M54.9 [facility] [id number] [place] [address] 36375- 7342 Jul, Back pain M54.9 [facility] [id number] [place] [address] 06444- 8690 Jul, Dorsalgia M54.9 [facility] [id number] [place] [address] 76697- 8362 Jul, [facility] [id number] [place] [address] 10956- 2333 May, Back pain M54.9 [facility] [id number] [place] [address] 18671- 6454 May, Diabetes E11.9 ; Anxiety F41.9 ; Port catheter in place Z95.828 ; Encounter for immunization Z23 and Insulin long-term use Z79.4 [facility] [id number] [place] [address] 51889- 5111 Apr, Back pain M54.9 [facility] [id number] [place] [address] 04641- 4654 Apr, Back pain M54.9 [facility] [id number] [place] [address] 96172- 0016 Apr, [facility] [id number] [place] [address] 23963- 8131 Apr, Back pain M54.9 [facility] [address] [place] [address] 11545- 3406 Mar, COPD (chronic obstructive pulmonary disease) J44.9 [facility] [id number], [place] [address]- 8925 Feb, [facility] [id number] [place] [address] 19561- 5251 30 Jan, 2016 [facility] [address], [place] [address]- 9474 20 Jan, 2016 [facility] [id number] [place] [address] 52109- 7573 07 Jan, 2016 [facility] [address] [place] [address] 22736- 8602 Jan, [facility] [id number] [place] [address] 73455- 4027 Dec, Diabetes E11.9 ; Hypoxia R09.02 and Back pain M54.9 [facility] [id number] [place] [address] 97498- 8746 Dec, [facility] [address] [place] [address] 57332- 5942 Nov, [facility] [address] [place] [address] 77529- 0577 Oct, Anxiety F41.9 [facility] [id number] [place] [address] 60713- 3124 Oct, Back pain M54.9 [facility] [address] [place] [address] 55370- 1026 September, Back pain M54.9 [facility] [address], [place] [address]- 0286 September, Diabetes E11.9 [facility] [address], [place] [address]- 8393 September, [facility] [address], [place] [address]- 2886 September, Diabetes E11.9 ; Insulin long-term use Z79.4 and Back pain M54.9 [facility] [id number] [place] [address] 46650- 6581 Aug, Back pain M54.9 [facility] [id number] [place] [address] 60757- 8700 Aug, Back pain M54.9 ; Anxiety F41.9 and Arthropathy, unspecified M12.9 [facility] [address] 72773- 7556 Jul, Back pain M54.9 [facility] [id number] [place] [address] 16196- 3889 Jul, Anxiety F41.9 [facility] [address] 23829- 8964 Jul, Back pain M54.9 [facility] [address] 76482- 1508 Jul, [facility] [id number] [place] [address] 44944- 5573 Jul, [facility] [id number] [place] [address] 80635- 5477 May, Back pain M54.9 ; Diabetes E11.9 ; Insulin long-term use Z79.4 ; COPD (chronic obstructive pulmonary disease) J44.9 and Hypertension I10 [facility] [id number] [place] [address] 74633- 4339 May, Chronic pain G89.29 [facility] [id number] [place] [address] 89429- 4075 Apr, [facility] [id number] [place] [address] 78422- 6695 Apr, [facility] [id number] [place] [address] 46831- 5948 Mar, [facility] [address] [place] [address]- 2210 Mar, Encounter for immunization Z23 and Diabetes E11.9 [facility] [id number], [place] [address]- 7270 Feb, [facility] [id number], [place] [address]- 0330 Feb, [facility] [id number] [place] [address] 48310- 4279 Jan, [facility] [id number] [place] [address] 27110- 2303 Jan, [facility] [id number] [place] [address] 16897- 6508 Dec, [facility] [id number] [place] [address] 12660- 7945 Dec, [facility] [id number] [place] [address] 20884- 6508 Dec, Unspecified arthropathy, site unspecified 716.90 and Diabetes mellitus type 2, uncontrolled 250.02 [facility] [id number] [address]- 7577 Dec, [facility] [id number], [place] [address]- 3639 Nov, [facility] [address], [place] [address]- 8585 Oct, [facility] [address], [place] [address]- 6104 September, [facility] [address], [place] [address]- 4374 September, [facility] [address], [place] [address]- 2908 September, [facility] [address], [place] [address]- 1517 September, [facility] [place] [facility] [address] [id number] [place] [address]- 7766 14 Aug, 2014 [facility] [place] [facility] [address] [id number] [place] [address]- 5948 13 Aug, 2014 [facility] [place] [facility] [address] [id number] [place] [address]- 7828 18 Jul, 2014 [facility] [place] [facility] [address] [id number] [place] [address]- 8006 18 Jul, 2014 [facility] [place] [facility] [address] [id number] [place] [address]- 4050 16 Jul, 2014 [facility] [place] [facility] [address] [id number] [place] [address]- 9732 16 Jul, 2014 [facility] [place] [facility] [address] [id number] [place] [address]- 2977 16 Jul, 2014 [facility] [place] [facility] [address] [id number] [place] [address]- 3231 16 Jul, 2014 [facility] [place] [facility] [address] [id number] [place] [address]- 0072 16 Jul, 2014 [facility] [place] [facility] [address] [id number] [place] [address]- 7911 16 Jul, 2014 [facility] [place] [facility] [address] [id number] [place] [address]- 8738 16 Jul, 2014 [facility] [place] [facility] [address] [id number] [place] [address]- 0379 13 Jul, 2014 [facility] [place] [facility] [address] [id number] [place] [address]- 0838 13 Jul, 2014 [facility] [place] [facility] [address] [id number] [place] [address]- 7556 09 Jul, 2014 [facility] [place] [facility] [address] [id number] [place] [address]- 6706 09 Jul, 2014 [facility] [place] [facility] [address] [id number] [place] [address]- 6417 17 Jul, 2014 [facility] [place] [facility] [address] [id number] [place] [address]- 5480 17 Jul, 2014 [facility] [place] [facility] [address] [facility] [id number] [place] [address]- 0016 16 Jul, 2014 [facility] [place] [facility] [address] [facility] [id number] [place] [address]- 7935 16 Jul, 2014 [facility] [place] [facility] [address] [facility] [id number] [place] [address]- 2095 16 Jul, 2014 [facility] [place] [facility] [address] [id number] [place] [address]- 8923 16 Jul, 2014 [facility] [place] [facility] [address] [facility] [id number] [place] [address]- 1003 16 Jul, 2014 [facility] [place] [facility] [address] [facility] [id number] [place] [address]- 8755 16 Jul, 2014 [facility] [place] [facility] [address] [facility] [id number] [place] [address]- 6864 16 Jul, 2014 [facility] [place] [facility] [address] [facility] [id number] [place] [address]- 2599 16 Jul, 2014 [facility] [place] [facility] [address] [facility] [id number] [place] [address]- 6559 16 Jul, 2014 [facility] [place] [facility] [address] [facility] [id number] [place] [address]- 1966 16 Jul, 2014 [facility] [place] [facility] [address] [facility] [id number] [place] [address]- 2548 16 Jul, 2014 [facility] [place] [facility] [address] [facility] [id number] [place] [address]- 5855 16 Jul, 2014 [facility] [place] [facility] [address] [facility] [id number] [place] [address]- 4610 16 Jul, 2014 [facility] [place] [facility] [address] [facility] [id number] [place] [address]- 8285 Jul, [facility] [place] [facility] [address] [id number] [place] [address]- 7720 May, [facility] [place] [facility] [address] [id number] [place] [address]- 5093 May, [facility] [place] [facility] [address] [id number] [place] [address]- 9698 May, [facility] [place] [facility] [address] [id number] [place] [address]- 5047 May, [facility] [place] [facility] [address] [id number] [place] [address]- 1726 May, [facility] [place] [facility] [address] [id number] [place] [address]- 3408 May, [facility] [place] [facility] [address] [id number] [place] [address]- 7512 May, [facility] [place] [facility] [address] [id number] [place] [address]- 0105 May, [facility] [place] [facility] [address] [id number] [place] [address]- 6649 May, [facility] [place] [facility] [address] [id number] [place] [address]- 6781 May, [facility] [place] [facility] [address] [id number] [place] [address]- 1601 Apr, [facility] [place] [facility] [address] [id number] [place] [address]- 3816 Apr, [facility] [place] [facility] [address] [id number] [place] [address]- 1103 Apr, [facility] [place] [facility] [address] [id number] [place] [address]- 1262 Apr, [facility] [place] [facility] [address] [id number] [place] 0820 Apr, [facility] [place] [facility] [address] [id number], [place] [address]- 6993 Apr, [facility] [place] [facility] [address] [id number] [place] [address]- 8783 Mar, [facility] [place] [facility] [address] [id number] [place] [address]- 3420 Mar, [facility] [place] [facility] [address] [id number] [place] [address]- 1896 Mar, [facility] [place] [facility] [address] [id number] [place] [address]- 1205 Mar, [facility] [place] [facility] [address] [id number] [place] [address]- 4337 Mar, [facility] [place] [facility] [address] [id number] [place] [address]- 4912 Mar, [facility] [place] [facility] [address] [id number] [place] [address]- 1501 Mar, [facility] [place] [facility] [address] [id number] [place] [address]- 9681 Mar, [facility] [place] [facility] [address] [id number] [place] [address]- 6298 Mar, [facility] [place] [facility] [address] [id number] [place] [address]- 6259 Mar, [facility] [place] [facility] [address] [id number] [place] [address]- 4175 Mar, [facility] [place] [facility] [address] [id number], [place] [address]- 0402 Feb, [facility] [place] [facility] [address] [id number], [place] [address]- 6058 Feb, [facility] [place] [facility] [address] [id number], [place] [address]- 1620 Feb, [facility] [place] [facility] [address] [id number], [place] [address]- 9128 Feb, [facility] [place] [facility] [address] [id number] [place] [address]- 6155 Feb, [facility] [place] [facility] [address] [id number] [place] [address]- 2227 Feb, [facility] [place] [facility] [address] [id number] [place] [address]- 1226 Feb, [facility] [place] [facility] [address] [id number] [place] [address]- 4497 Feb, [facility] [place] [facility] [address] [id number] [place] [address]- 2429 Feb, [facility] [place] [facility] [address] [id number] [place] [address]- 4364 Feb, [facility] [place] [facility] [address] [id number] [place] [address]- 7758 Jan, [facility] [place] [facility] [address] [id number] [place] [address]- 7858 22 Jan, 2014 [facility] [place] [facility] [address] [id number] [place] [address]- 7579 16 Jan, 2014 [facility] [place] [facility] [address] [id number] [place] [address] 16 Jan, 2014 [facility] [place] [facility] [address] [id number] [place] [address] 12 Jan, 2014 [facility] [place] [facility] [address] [id number] [place] [address] Jan, [facility] [place] [facility] [address] [id number] [place] [address] Jan, [facility] [place] [facility] [address] [id number] [place] [address] Dec, [facility] [place] [facility] [address] [id number] [place] [address] Dec, [facility] [place] [facility] [address] [id number] [place] [address] Dec, [facility] [place] [facility] [address] [id number] [place] [address] Dec, [facility] [place] [facility] [address] [id number] [place] [address] Dec, [facility] [place] [facility] [address] [id number] [place] [address] Dec, [facility] [place] [facility] [address] [id number] [place] [address] Dec, [facility] [place] [facility] [address] [id number] [place] [address] Dec, [facility] [place] [facility] [address] [id number] [place] [address] Oct, [facility] [place] [facility] [address] [id number] [place] [address] Oct, [facility] [place] [facility] [address] [id number] [place] [address] September, [facility] [place] [facility] [address] [id number] [place] [address] September, [facility] [place] [facility] [address] [id number] [place] [address] September, [facility] [place] [facility] [address] [id number] [place] [address] September, [facility] [place] [facility] [address] [id number] [place] [address] September, [facility] [place] [facility] [address] [id number] [place] [address] September, [facility] [place] [facility] [address] [id number] [place] [address] September, [facility] [place] [facility] [address] [id number] [place] [address] Aug, [facility] [place] [facility] [address] [id number] [place] [address]- [address] 15 Aug, 2013 [facility] [place] [facility] [address] [id number] [place] [address] Jul, [facility] [place] [facility] [address] [id number] [place] [address]- [address] 24 Jul, 2013 [facility] [place] [facility] [address] [id number] [place] [address] Jul, [facility] [place] [facility] [address] [id number] [place] [address] Jul, [facility] [place] [facility] [address] [id number] [place] [address] Jul, [facility] [place] [facility] [address] [facility] [id number] [place] [address] Jul, [facility] [place] [facility] [address] [id number] [place] [address] Jul, [facility] [place] [facility] [address] [id number] [place] [address] Jul, [facility] [place] [facility] [address] [facility] [id number] [place] [address] May, [facility] [place] [facility] [address] [facility] [id number] [place] [address] May, [facility] [place] [facility] [address] [id number] [place] [address] May, [facility] [place] [facility] [address] [id number] [place] [address] May, [facility] [place] [facility] [address] [id number] [place] [address] Apr, [facility] [place] [facility] [address] [id number] [place] [address] Mar, [facility] [place] [facility] [address] [id number] [place] [address] Mar, [facility] [place] [facility] [address] [id number] [place] [address] Mar, [facility] [place] [facility] [address] [id number], [place] [address] Mar, [facility] [place] [facility] [address] [id number] [place] [address] Mar, [facility] [place] [facility] [address] [id number], [place] [address] Mar, [facility] [place] [facility] [address] [id number] [place] [address] Mar, [facility] [place] [facility] [address] [id number], [place] [address] Mar, [facility] [place] [facility] [address] [id number], [place] [address] Mar, [facility] [place] [facility] [address] [id number], [place] [address] Mar, [facility] [place] [facility] [address] [id number], [place] [address] Mar, [facility] [place] [facility] [address] [id number], [place] [address] 04 Mar, 2013 [facility] [place] [facility] [address] [id number], [place] [address] 15 Feb, 2013 [facility] [place] [facility] [address] [id number], [place] [address] 15 Feb, 2013 [facility] [place] [facility] [address] [id number], [place] [address] Feb, [facility] [place] [facility] [address] [id number], [place] [address] 11 Feb, 2013 [facility] [place] [facility] [address] [id number], [place] [address] Feb, [facility] [place] [facility] [address] [id number] [place] [address] Jan, [facility] [address] [id number] [place] [address] Dec, [facility] [address] [id number] [place] [address] Dec, [facility] [address] [id number] [place] [address] 76[address] Dec, [facility] [address] [id number] [place] [address] Nov, [facility] [address] [id number] [place] [address] Nov, [facility] [address] [id number] [place] [address] Nov, [facility] [address] [id number] [place] [address] Oct, [facility] [address] [id number] [place] [address] Oct, [facility] [address] [id number] [place] [address] Oct, [facility] [address] [id number] [place] [address] 1014 September, [facility] [address] [id number] [place] [address] September, [facility] [address] [id number] [place] [address] September, [facility] [place] [facility] [address] [id number] [place] [address] September, [facility] [place] [facility] [address] [id number] [place] [address] September, [facility] [address] [id number] [place] [address] Aug, [facility] [place] [facility] [address] [id number] [place] [address]47 Aug, [facility] [address] [id number] [place] [address] Aug, [facility] [address] [id number] [place] [address] Jul, [facility] [address] [id number] [place] [address] Jul, [facility] [address] [id number] [place] [address] Jul, [facility] [address] [id number] [place] [address] Jul, [facility] [address] [id number] [place] [address] Jul, [facility] [address] [id number] [place] [address] 1387 Jul, [facility] [address] [id number] [place] [address] 4697 Jul, [facility] [address] [id number] [place] [address]359 May, [facility] [address] [id number] [place] [address] May, [facility] [address] [id number], [place] [address] May, [facility] [address] [id number] [place] [address] Apr, [facility] [address] [id number] [place] [address] Apr, [facility] [address] [id number] [place] [address]- [address] Apr, [facility] [address] [id number], [place] [address] Apr, [facility] [place] [facility] [address] [id number] [place] [address]- 0418 Apr, [facility] [place] [facility] [address] [id number] [place] [address] 69[address] Mar, [facility] [place] [facility] [address] [facility] [id number] [place] [address]- [address]446 Mar, [facility] [place] [facility] [address] [id number] [place] [address]- 8424 Mar, [facility] [place] [facility] [address] [id number] [place] [address] Mar, [facility] [place] [facility] [address] [id number] [place] [address] 1952 Feb, [facility] [place] [facility] [address] [facility] [id number] [place] [address]- 8570 Feb, [facility] [place] [facility] [address] [facility] [id number] [place] [address]- [address] Feb, [facility] [place] [facility] [address] [facility] [id number] [place] [address]- 1477 Feb, [facility] [place] [facility] [address] [facility] [id number] [place] [address]- [address]654 Feb, [facility] [place] [facility] [address] [facility] [id number] [place] [address]- 9099 Jan, [facility] [place] [facility] [address] [facility] [id number], [place] [address] Dec, [facility] [place] [facility] [address] [id number] [place] [address] 7221 Dec, [facility] [place] [facility] [address] [facility] [id number] [place] [address]- 4072 Dec, [facility] [place] [facility] [address] [facility] [id number] [place] [address]- 4336 Nov, [facility] [place] [facility] [address] [id number] [place] [address]- 3367 Nov, [facility] [place] [facility] [address] [id number] [place] [address]- 8917 Nov, [facility] [place] [facility] [address] [id number] [place] [address] 4066 Oct, [facility] [place] [facility] [address] [id number] [place] [address]- 7668 Oct, [facility] [place] [facility] [address] [id number] [place] [address]- 4835 Oct, [facility] [place] [facility] [address] [id number] [place] [address]- 8343 Oct, [facility] [place] [facility] [address] [id number] [place] [address]- 2129 September, [facility] [place] [facility] [address] [id number] [place] [address]- 2392 September, [facility] [place] [facility] [address] [id number] [place] [address]- [address] Aug, [facility] [place] [facility] [address] [id number] [place] [address]- 6971 Aug, [facility] [place] [facility] [address] [id number] [place] [address]- 1299 Aug, [facility] [place] [facility] [address] [id number] [place] [address]- 3399 Aug, [facility] [place] [facility] [address] [id number] [place] [address]- 8487 Aug, [facility] [place] [facility] [address] [id number] [place] [address]- 6558 Aug, [facility] [place] [facility] [address] [id number] [place] [address]- 7576 Aug, [facility] [place] [facility] [address] [id number] [place] [address]- 4899 Jul, [facility] [place] [facility] [address] [id number] [place] [address]- 1295 Jul, [facility] [place] [facility] [address] [id number] [place] [address]- 4417 Jul, [facility] [place] [facility] [address] [id number] [place] [address]- 3913 May, [facility] [place] [facility] [address] [id number] [place] [address]- 6224 May, [facility] [place] [facility] [address] [id number] [place] [address]- 8612 May, [facility] [place] [facility] [address] [id number] [place] [address]- 1421 Apr, [facility] [place] [facility] [address] [id number] [place] [address]- 1725 Apr, [facility] [place] [facility] [address] [id number] [place] [address]- 0407 Mar, [facility] [place] [facility] [address] [id number] [place] [address]- 2501 Mar, [facility] [place] [facility] [address] [id number] [place] [address]- 2534 Mar, [facility] [place] [facility] [address] [id number], [place] [address]- 2877 Mar, [facility] [place] [facility] [address] [id number], [place] [address] 1964 Mar, [facility] [place] [facility] [address] [id number] [place] [address]- 3695 Mar, [facility] [place] [facility] [address] [id number], [place] [address]- 1349 Feb, [facility] [place] [facility] [address] [id number] [place] [address]- 5311 Feb, [facility] [place] [facility] [address] [facility] [id number] [place] [address]- [address] 14 Feb, 2011 IMMUNIZATIONS No Known Immunizations SOCIAL HISTORY Never Assessed REASON FOR VISIT Requests return call PLAN OF CARE VITAL SIGNS MEDICATIONS Unknown [...]
--- OUTSIDE RECORDS SUMMARY | 2018-05-16 07:07 | XMS REPORT ---
Author Author FERNY SILVERIO Organization [facility] Address [address] [place] [address] Care Team Providers Care Dye Expert Name Role Phone FERNY SILVERIO Unavailable PROBLEMS Type Condition ICD9-CM Code TUG39-CZ Code Onset Dates Condition Status SNOMED Code Problem Hypoxia R09.02 Active 833620231 Problem Port catheter in place Z95.828 Active 855069213 Problem Anxiety F41.9 Active 70624679 Problem Type 2 diabetes mellitus with diabetic peripheral angiopathy without gangrene E11.51 Active 153324573 Problem Pressure ulcer of other site, stage 3 L89.893 Active 312765860 Problem Lumbar radiculopathy, chronic M54.16 Active 367314853 Problem PAD (peripheral artery disease) I73.9 Active 447131184 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 865637554 Problem Recurrent major depressive disorder, in full remission F33.42 Active 918362496 Problem Diabetes E11.9 Active 07814011 Problem Hypertension I10 Active 64486231 Problem Back pain M54.9 Active 408719952 Problem Insulin long-term use Z79.4 Active 114491992 Problem COPD (chronic obstructive pulmonary disease) J44.9 Active 87902521 ALLERGIES No Information ENCOUNTERS Encounter Location Date Diagnosis [place] [address] [address] Oct, [facility] [address] [address] Oct, Back pain M54.9 and Anxiety F41.9 [facility] [id number] [place] [address] 44546- 4500 September, Anxiety F41.9 and Back pain M54.9 [place] [id number] [place] [address] 46443- 4734 September, Diabetes E11.9 ; Hypertension I10 ; COPD (chronic obstructive pulmonary disease) J44.9 and Lumbar radiculopathy, chronic M54.16 [place] [address] [place] [id number] [place] [address] 54276- 7273 September, Anxiety F41.9 [place] [address] [place] [id number] [place] [address] 73983- 3104 Aug, [place] [address] [place] [id number] [place] [address] 56397- 3627 Aug, [place] [address] [place] [id number] [place] [address] 58936- 7087 Aug, Anxiety F41.9 and Back pain M54.9 [place] [address] [place] [id number] [place] [address] 00016- 9434 Aug, Medicare annual wellness visit, initial Z00.00 ; COPD ( chronic obstructive pulmonary disease) J44.9 ; PAD (peripheral artery disease) I73.9 ; Insulin long-term use Z79.4 ; Hypertension I10 ; Anxiety F41.9 ; Recurrent major depressive disorder, in full remission F33.42 ; Pressure ulcer of other site, stage 3 L89.893 ; Type 2 diabetes mellitus with diabetic peripheral angiopathy without gangrene E11.51 and 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 [place] [address] [place] [id number] [place] [address] 63532- 4197 Jul, Back pain M54.9 [place] [address] [place] [id number] [place] [address] 16272- 0675 Jul, [place] [address] [place] [id number] [place] [address] 40791- 2835 Jul, Anxiety F41.9 and Back pain M54.9 [place] [address] [place] [id number] [place] [address] 64979- 7527 Jul, Diabetes E11.9 [place] [address] [place] [id number] [place] [address] 82615- 6223 May, [facility] [address] [place] [id number] [place] [address] 49152- 7691 May, Diabetes E11.9 ; Anxiety F41.9 ; Back pain M54.9 and COPD ( chronic obstructive pulmonary disease) J44.9 [facility] [address] [place] [id number] [place] [address] 29196- 3997 May, Back pain M54.9 [facility] [address] 20849- 6507 May, [facility] [address] [place] [id number] [place] [address] 89020- 5536 Apr, Back pain M54.9 [facility] [address] [place] [id number] [place] [address] 53346- 5870 Mar, Back pain M54.9 [facility] [address] 99027- 8716 Mar, [facility] [address] [place] [id number] [place] [address] 91915- 0279 Mar, [facility] [address] 93752- 2331 14 Mar, 2017 Radiculopathy of lumbar region M54.16 [facility] [address] [place] [id number] [place] [address] 08631- 9300 Mar, [facility] [address] 10659- 5096 07 Mar, 2017 Encounter for immunization Z23 and Lumbar radiculopathy, chronic M54.16 [facility] [address] 61439- 7136 Mar, Back pain M54.9 and Anxiety F41.9 [facility] [address] [place] [id number] [place] [address] 40381 -9502 10 Feb, 2017 Acute bilateral low back pain with left-sided sciatica M54.42 and Acute bilateral low back pain with right-sided sciatica M54.41 [facility] [address] [place] [id number] [place] [address] 97822- 2448 Feb, [facility] [address] [place] [id number] [place] [address] 98129- 9583 Feb, Back pain M54.9 [facility] [address] [place] [id number] [place] [address] 43516- 6211 05 Jan, 2017 Back pain M54.9 and Anxiety F41.9 [facility] [address] [place] [id number] [place] [address] 54195- 8710 05 Jan, 2017 Diabetes E11.9 [place] [address] [place] [id number] [place] [address] 55513- 9241 Dec, Diabetes E11.9 ; Back pain M54.9 ; Anxiety F41.9 and Insulin long-term use Z79.4 [place] [address] [place] [id number] [place] [address] 38916- 3959 Dec, Anxiety F41.9 [facility] [address] [place] [id number] [place] [address] 04831- 7823 Dec, Back pain M54.9 [facility] [address] [place] [id number] [place] [address] 91518- 3542 Nov, Back pain M54.9 [facility] [address] [place] [id number] [place] [address] 74044- 8916 Oct, Back pain M54.9 and Anxiety F41.9 [facility] [address] [place] [id number] [place] [address] 15153- 6880 September, Back pain M54.9 [facility] [address] [place] [id number] [place] [address] 53767- 9829 September, Back pain M54.9 and Anxiety F41.9 [facility] [address] [place] [id number] [place] [address] 09309- 3960 Aug, Diabetes E11.9 ; Anxiety F41.9 ; Back pain M54.9 and PAD ( peripheral artery disease) I73.9 [facility] [address] 74216- 6026 19 Aug, 2016 Anxiety F41.9 [facility] [address] 41346- 1996 14 Aug, 2016 Back pain M54.9 [facility] [address] 33831- 5226 Jul, Back pain M54.9 [facility] [address] 66839- 2482 Jul, Back pain M54.9 [facility] [address] 71142- 7262 Jul, Back pain M54.9 [facility] [address] 21846- 4624 16 Jul, 2016 Dorsalgia M54.9 [facility] [address] 65210- 3401 Jul, [facility] [address] 04267- 0026 May, Back pain M54.9 [facility] [address] 38261- 8590 May, Diabetes E11.9 ; Anxiety F41.9 ; Port catheter in place Z95.828 ; Encounter for immunization Z23 and Insulin long-term use Z79.4 [facility] [address] [place] [id number] [place] [address] 08144- 5872 Apr, Back pain M54.9 [facility] [address] 92112- 5300 Apr, Back pain M54.9 [facility] [address] 38067- 1143 Apr, [place] [address] [address]- 4146 Apr, Back pain M54.9 [facility] [address] [place] [id number] [place] [address] 08407- 1149 Mar, COPD (chronic obstructive pulmonary disease) J44.9 [facility] [address] [place] [id number] [place] [address] 32056- 5146 Feb, [facility] [address] [place] [id number] [place] [address] 44329- 3208 30 Jan, 2016 [facility] [address] [place] [id number] [place] [address] 63885- 5049 Jan, [facility] [address] [place] [id number] [place] [address] 10804- 3188 Jan, [facility] [address] [place] [id number] [place] [address] 74560- 4293 Jan, [facility] [address] [place] [id number] [place] [address] 71445- 2627 Dec, Diabetes E11.9 ; Hypoxia R09.02 and Back pain M54.9 [facility] [address] [place] [id number] [place] [address] 81906- 4112 Dec, [facility] [id number] [place] [address] 05700- 5872 Nov, [facility] [address] [place] [address] 82855- 7200 Oct, Anxiety F41.9 [facility] [address] [place] [address] 66013- 5115 Oct, Back pain M54.9 [facility] [address] [place] [address] 85294- 6401 September, Back pain M54.9 [facility] [address] [place] [address] 43749- 5161 September, Diabetes E11.9 [facility] [address] [place] [id number] [place] [address] 37080- 9816 September, [facility] [address] 60192- 6265 September, Diabetes E11.9 ; Insulin long-term use Z79.4 and Back pain M54.9 [facility] [address] [place] [id number] [place] [address] 53197- 3878 Aug, Back pain M54.9 [facility] [address] 64084- 7644 Aug, Back pain M54.9 ; Anxiety F41.9 and Arthropathy, unspecified M12.9 [facility] [address] [place] [id number] [place] [address] 93205- 8358 Jul, Back pain M54.9 [place] [address] 77832- 1602 Jul, Anxiety F41.9 [facility] [address] 51909- 2716 Jul, Back pain M54.9 [facility] [address] [place] [id number] [place] [address] 04066- 7122 Jul, [facility] [address] [place] [id number] [place] [address] 03469- 0101 Jul, [facility] [address] [place] [id number] [place] [address] 80823- 0595 May, Back pain M54.9 ; Diabetes E11.9 ; Insulin long-term use Z79.4 ; COPD (chronic obstructive pulmonary disease) J44.9 and Hypertension I10 [place] [address] [place] [id number] [place] [address] 59600- 3510 May, Chronic pain G89.29 [place] [address] [place] [id number] [place] [address] 46507- 5532 Apr, [place] [address] [address]- 6607 Apr, [facility] [address] [address]- 8946 Mar, [facility] [address] [id number] [address]- 3845 Mar, Encounter for immunization Z23 and Diabetes E11.9 [facility] [address] [place] [id number] [place] [address] 93992- 5813 Feb, [facility] [address] [place] [id number] [place] [address] 33626- 7738 Feb, [facility] [address] [place] [id number] [place] [address] 41190- 8657 Jan, [facility] [address] [place] [id number] [place] [address] 87457- 2893 Jan, [facility] [address] [place] [address] 42238- 6267 Dec, [facility] [address] [place] [id number] [place] [address] 42833- 2953 Dec, [facility] [address] [address]- 4848 Dec, Unspecified arthropathy, site unspecified 716.90 and Diabetes mellitus type 2, uncontrolled 250.02 [facility] [address] [address]- 6560 Dec, [facility] [address] [address]- 0351 Nov, [facility] [address] [id number] [address]- 0309 Oct, [facility] [address] [address]- 4882 September, [facility] [id number] [place] [address] 16941- 8541 September, [facility] [place] [facility] [address] [id number] [place] [address]- 9211 September, [facility] [place] [facility] [address] [id number] [place] [address]- 3983 September, [facility] [place] [facility] [address] [id number] [place] [address]- 6987 14 Aug, 2014 [facility] [place] [facility] [address] [id number] [place] [address]- 6540 13 Aug, 2014 [facility] [place] [facility] [address] [id number] [place] [address]- 5973 18 Jul, 2014 [facility] [place] [facility] [address] [id number] [place] [address]- 5574 18 Jul, 2014 [facility] [place] [facility] [address] [id number] [place] [address]- 3578 16 Jul, 2014 [facility] [place] [facility] [address] [id number] [place] [address]- 1297 16 Jul, 2014 [facility] [place] [facility] [address] [id number] [place] [address]- 8127 16 Jul, 2014 [facility] [place] [facility] [address] [id number] [place] [address]- 9285 16 Jul, 2014 [facility] [place] [facility] [address] [id number] [place] [address]- 0305 16 Jul, 2014 [facility] [place] [facility] [address] [id number] [place] [address]- 4984 16 Jul, 2014 [facility] [place] [facility] [address] [id number] [place] [address]- 9802 16 Jul, 2014 [facility] [place] [facility] [address] [id number] [place] [address]- 7962 13 Jul, 2014 [facility] [place] [facility] [address] [id number] [place] [address]- 4313 13 Jul, 2014 [facility] [place] [facility] [address] [id number] [place] [address]- 5603 09 Jul, 2014 [facility] [place] [facility] [address] [id number] [place] [address]- 0984 Jul, 2014 [facility] [place] [facility] [address] [id number] [place] [address]- 3595 17 Jul, 2014 [facility] [place] [facility] [address] [id number] [place] [address]- 2438 17 Jul, 2014 [facility] [place] [facility] [address] [id number] [place] [address]- 6887 16 Jul, 2014 [facility] [place] [facility] [address] [id number] [place] [address]- 2784 16 Jul, 2014 [facility] [place] [facility] [address] [facility] [id number] [place] [address]- 8426 16 Jul, 2014 [facility] [place] [facility] [address] [facility] [id number] [place] [address]- 1246 16 Jul, 2014 [facility] [place] [facility] [address] [id number] [place] [address]- 7150 16 Jul, 2014 [facility] [place] [facility] [address] [facility] [id number] [place] [address]- 3830 16 Jul, 2014 [facility] [place] [facility] [address] [facility] [id number] [place] [address]- 5461 16 Jul, 2014 [facility] [place] [facility] [address] [facility] [id number] [address]- 5130 Jul, 2014 [facility] [place] [facility] [address] [facility] [id number] [place] [address]- 5752 16 Jul, 2014 [facility] [place] [facility] [address] [id number] [place] [address]- 3962 16 Jul, 2014 [facility] [place] [facility] [address] [facility] [id number] [place] [address]- 3390 16 Jul, 2014 [facility] [place] [facility] [address] [facility] [id number] [address]- 7806 Jul, [facility] [place] [facility] [address] [id number] [place] [address]- 2190 Jul, [facility] [place] [facility] [address] [id number] [place] [address]- 6402 Jul, [facility] [place] [facility] [address] [id number] [place] [address]- 1417 May, [facility] [place] [facility] [address] [id number] [place] [address]- 4591 May, [facility] [place] [facility] [address] [id number] [place] [address]- 8706 May, [facility] [place] [facility] [address] [id number] [place] [address]- 8012 May, [facility] [place] [facility] [address] [id number] [place] [address]- 7799 May, [facility] [place] [facility] [address] [id number] [place] [address]- 4716 May, [facility] [place] [facility] [address] [id number] [place] [address]- 9642 May, [facility] [place] [facility] [address] [id number] [place] [address]- 9338 May, [facility] [place] [facility] [address] [id number] [place] [address]- 4425 May, [facility] [place] [facility] [address] [id number] [place] [address]- 1671 May, [facility] [place] [facility] [address] [id number] [place] [address]- 8644 Apr, [facility] [place] [facility] [address] [id number] [place] [address]- 5715 Apr, [facility] [place] [facility] [address] [id number] [place] [address]- 2766 Apr, [facility] [place] [facility] [address] [id number] [place] [address]- 0628 Apr, [facility] [place] [facility] [address] [id number] [place] [address]- 0138 Apr, [facility] [place] [facility] [address] [id number] [place] [address]- 6882 Apr, [facility] [place] [facility] [address] [id number] [place] [address]- 7291 Mar, [facility] [place] [facility] [address] [id number] [place] [address]- 4789 Mar, [facility] [place] [facility] [address] [id number] [place] [address]- 7964 Mar, [facility] [place] [facility] [address] [id number] [place] [address]- 0299 Mar, [facility] [place] [facility] [address] [id number] [place] [address]- 3721 Mar, [facility] [place] [facility] [address] [id number] [place] [address]- 0005 Mar, [facility] [place] [facility] [address] [id number] [place] [address]- 7066 Mar, [facility] [place] [facility] [address] [id number] [place] [address]- 8300 Mar, [facility] [place] [facility] [address] [id number] [place] [address]- 3421 Mar, [facility] [place] [facility] [address] [id number] [place] [address]- 1763 Mar, [facility] [place] [facility] [address] [id number] [place] [address]- 4114 Mar, [facility] [place] [facility] [address] [id number] [place] [address]- 5352 Feb, [facility] [place] [facility] [address] [id number] [place] [address]- 8843 30 Feb, 2014 [facility] [place] [facility] [address] [id number] [place] [address]- 9782 Feb, [facility] [place] [facility] [address] [id number] [place] [address]- 9183 Feb, [facility] [place] [facility] [address] [id number] [place] [address]- 2809 Feb, [facility] [place] [facility] [address] [id number] [place] [address]- 0002 Feb, [facility] [place] [facility] [address] [id number] [place] [address]- 0952 Feb, [facility] [place] [facility] [address] [id number] [place] [address]- 7341 Feb, [facility] [place] [facility] [address] [id number] [place] [address]- 0584 Feb, [facility] [place] [facility] [address] [id number] [place] [address]- 5946 Feb, [facility] [place] [facility] [address] [id number] [place] [address]- 7270 22 Jan, 2014 [facility] [place] [facility] [address] [id number] [place] [address]- 0000 22 Jan, 2013 [facility] [place] [facility] [address] [id number] [place] [address] 16 Jan, 2013 [facility] [place] [facility] [address] [id number] [place] [address] 16 Jan, 2013 [facility] [place] [facility] [address] [id number] [place] [address] 12 Jan, 2014 [facility] [place] [facility] [address] [id number] [place] [address] 04 Jan, 2013 [facility] [place] [facility] [address] [id number] [place] [address] 04 Jan, 2013 [facility] [place] [facility] [address] [id number] [place] [address] Dec, [facility] [place] [facility] [address] [id number] [place] [address] Dec, [facility] [place] [facility] [address] [id number] [place] [address] Dec, [facility] [place] [facility] [address] [id number] [place] [address] Dec, [facility] [place] [facility] [address] [id number] [place] [address] Dec, [facility] [place] [facility] [address] [id number] [place] [address] Dec, [facility] [place] [facility] [address] [id number] [place] [address] Dec, [facility] [place] [facility] [address] [id number] [place] [address] Dec, [facility] [place] [facility] [address] [id number] [place] [address] Oct, [facility] [place] [facility] [address] [id number] [place] [address] Oct, [facility] [place] [facility] [address] [id number] [place] [address] September, [facility] [place] [facility] [address] [id number] [place] [address] September, [facility] [place] [facility] [address] [id number] [place] [address]- [address] September, [facility] [place] [facility] [address] [id number] [place] [address]- [address] September, [facility] [place] [facility] [address] [id number] [place] [address]- [address] September, [facility] [place] [facility] [address] [id number] [place] [address] September, [facility] [place] [facility] [address] [id number] [place] [address] September, [facility] [place] [facility] [address] [id number] [place] [address] Aug, [facility] [place] [facility] [address] [id number] [place] [address] Aug, [facility] [place] [facility] [address] [id number] [place] [address]- [address] Jul, [facility] [place] [facility] [address] [id number] [place] [address] Jul, [facility] [place] [facility] [address] [id number] [place] [address] Jul, [facility] [place] [facility] [address] [id number] [place] [address]687 Jul, [facility] [place] [facility] [address] [id number] [place] [address]- [address] Jul, [facility] [place] [facility] [address] [id number] [place] [address]58 Jul, [facility] [place] [facility] [address] [id number] [place] [address]- [address] Jul, [facility] [place] [facility] [address] [id number] [place] [address] Jul, [facility] [place] [facility] [address] [id number] [place] [address] 79[address] May, [facility] [place] [facility] [address] [id number] [place] [address] May, [facility] [place] [facility] [address] [id number] [place] [address]- [address] May, [facility] [place] [facility] [address] [id number] [place] [address]676 May, [facility] [place] [facility] [address] [id number] [place] [address]- [address] 18 Apr, 2013 [facility] [place] [facility] [address] [id number] [place] [address] Mar, [facility] [place] [facility] [address] [id number] [place] [address]- [address] Mar, [facility] [place] [facility] [address] [id number] [place] [address]- [address] Mar, [facility] [place] [facility] [address] [id number] [place] [address]- [address] Mar, [facility] [place] [facility] [address] [id number] [place] [address]- [address] Mar, [facility] [place] [facility] [address] [id number] [place] [address]- [address]88 Mar, [facility] [place] [facility] [address] [id number] [place] [address]- [address] Mar, [facility] [place] [facility] [address] [id number] [place] [address]- 46[address] Mar, [facility] [place] [facility] [address] [id number] [place] [address]- [address] Mar, [facility] [place] [facility] [address] [facility] [id number] [place] [address]- [address] Mar, [facility] [place] [facility] [address] [id number] [place] [address]- [address]24 Mar, [facility] [place] [facility] [address] [id number] [place] [address]- 1802 04 Mar, 2013 [facility] [place] [facility] [address] [id number] [place] [address] 15 Feb, 2013 [facility] [place] [facility] [address] [id number] [place] [address] 15 Feb, 2013 [facility] [place] [facility] [address] [id number] [address] Feb, [facility] [place] [facility] [address] [id number] [place] [address] Feb, [facility] [address] [id number] [place] [address] Feb, [facility] [address] [id number] [place] [address] Jan, [facility] [place] [facility] [address] [id number] [place] [address] Dec, [facility] [address] [id number] [place] [address] Dec, [facility] [address] [id number] [place] [address] Dec, [facility] [address] [id number] [place] [address] Nov, [facility] [address] [id number] [place] [address] Nov, [facility] [address] [id number] [place] [address] Nov, [facility] [address] [id number] [place] [address] Oct, [facility] [place] [facility] [address] [id number] [place] [address] Oct, [facility] [place] [facility] [address] [id number] [place] [address] Oct, [facility] [place] [facility] [address] [id number] [place] [address] September, [facility] [place] [facility] [address] [id number] [place] [address] September, [facility] [place] [facility] [address] [id number] [place] [address]44 September, [facility] [place] [facility] [address] [id number] [place] [address] September, [facility] [address] [id number] [place] [address] September, [facility] [address] [id number] [place] [address] Aug, [facility] [address] [id number] [place] [address] Aug, [facility] [address] [id number] [place] [address] Aug, [facility] [address] [id number] [place] [address] Jul, [facility] [address] [id number] [place] [address] Jul, [facility] [address] [id number] [place] [address]95 Jul, [facility] [address] [id number] [place] [address] 133[address] Jul, [facility] [address] [id number] [place] [address] Jul, [facility] [address] [id number] [place] [address] Jul, [facility] [address] [id number] [place] [address] Jul, [facility] [address] [id number] [place] [address] 2616 May, [facility] [place] [facility] [address] [id number] [place] [address] May, [facility] [place] [facility] [address] [id number] [place] [address] May, [facility] [address] [id number] [place] [address] 49[address] Apr, [facility] [place] [facility] [address] [id number] [place] [address] 8544 Apr, [facility] [place] [facility] [address] [id number] [place] [address] 2886 Apr, [facility] [place] [facility] [address] [id number] [place] [address] Apr, [facility] [place] [facility] [address] [id number] [place] [address] Apr, [facility] [place] [facility] [address] [id number] [place] [address]842 Mar, [facility] [place] [facility] [address] [id number] [place] [address] 4[address] Mar, [facility] [place] [facility] [address] [id number] [place] [address] 0798 Mar, [facility] [place] [facility] [address] [id number] [place] [address] Mar, [facility] [place] [facility] [address] [id number] [place] [address] 245[address] Feb, [facility] [place] [facility] [address] [id number] [place] [address] 1535 Feb, [facility] [place] [facility] [address] [facility] [id number] [place] [address]487 Feb, [facility] [place] [facility] [address] [id number] [place] [address] 8916 Feb, [facility] [place] [facility] [address] [id number] [place] [address] 2547 Feb, [facility] [place] [facility] [address] [id number] [place] [address] Jan, [facility] [place] [facility] [address] [id number] [place] [address]- 2546 Dec, [facility] [place] [facility] [address] [id number] [place] [address] 3101 Dec, [facility] [place] [facility] [address] [id number] [place] [address]- 8026 Dec, [facility] [place] [facility] [address] [id number] [place] [address] 7170 Nov, [facility] [place] [facility] [address] [id number] [place] [address]- 1083 Nov, [facility] [place] [facility] [address] [id number] [place] [address]- 0198 Nov, [facility] [place] [facility] [address] [id number] [place] [address] 9196 Oct, [facility] [place] [facility] [address] [id number] [place] [address] 1513 Oct, [facility] [place] [facility] [address] [id number] [place] [address]- 5789 Oct, [facility] [place] [facility] [address] [id number] [place] [address] 5712 Oct, [facility] [place] [facility] [address] [id number] [place] [address]- 0943 September, [facility] [place] [facility] [address] [id number] [place] [address] 8194 September, [facility] [place] [facility] [address] [id number] [place] [address]- 3369 30 Aug, 2011 [facility] [place] [facility] [address] [id number] [place] [address]- [address]851 23 Aug, 2011 [facility] [place] [facility] [address] [id number] [place] [address]- 5468 10 Aug, 2011 [facility] [place] [facility] [address] [id number] [place] [address]- 0135 09 Aug, 2011 [facility] [place] [facility] [address] [id number] [place] [address]- 8842 Aug, [facility] [place] [facility] [address] [id number] [place] [address]- 0601 05 Aug, 2011 [facility] [address] [id number] [place] [address]- 1358 Aug, [facility] [place] [facility] [address] [id number] [place] [address]- 0966 Jul, [facility] [place] [facility] [address] [id number] [place] [address]- 5347 Jul, [facility] [place] [facility] [address] [id number] [place] [address]- 7649 Jul, [facility] [place] [facility] [address] [id number] [place] [address]- 4775 May, [facility] [place] [facility] [address] [id number] [place] [address] May, [facility] [place] [facility] [address] [id number] [place] [address]- 5916 May, [facility] [place] [facility] [address] [id number] [place] [address]- 2902 Apr, [facility] [place] [facility] [address] [id number] [place] [address]- 7314 Apr, [facility] [place] [facility] [address] [facility] [id number] [place] [address]- 5337 Mar, [facility] [place] [facility] [address] [id number] [place] [address]- 7750 Mar, [facility] [place] [facility] [address] [id number] [place] [address]- 9981 Mar, [facility] [place] [facility] [address] [id number] [place] [address]- 1290 Mar, [facility] [place] [facility] [address] [id number] [place] [address]- 4112 Mar, [facility] [place] [facility] [address] [id number] [address] Mar, [facility] [address] [facility] [id number] [place] [address] Feb, [facility] [address] [facility] [id number] [place] [address] Feb, [facility] [address] [facility] [id number] [place] [address]- [address]15 Feb, IMMUNIZATIONS No Known Immunizations SOCIAL HISTORY Never Assessed REASON FOR VISIT Medication question PLAN OF CARE VITAL SIGNS MEDICATIONS Medication Instructions Dosage Frequency Start Date End Date Duration Status Lantus 100 unit/ml Subcutaneous Once a day 120 UNITS 24h Active RESULTS No Results PROCEDURES No Known [...]
--- OUTSIDE RECORDS SUMMARY | 2018-05-16 07:09 | XMS REPORT ---
Author Author FERNY SILVERIO [facility] Address [address] [place] [address] Care Team Providers Care Roving Winder Name Role Phone FERNY SILVERIO Unavailable PROBLEMS Type Condition ICD9-CM Code DOU90-LT Code Onset Dates Condition Status SNOMED Code Problem Hypoxia R09.02 Active 385855530 Problem Port catheter in place Z95.828 Active 710451690 Problem Anxiety F41.9 Active 50191741 Problem Type 2 diabetes mellitus with diabetic peripheral angiopathy without gangrene E11.51 Active 331961092 Problem Pressure ulcer of other site, stage 3 L89.893 Active 299188425 Problem Lumbar radiculopathy, chronic M54.16 Active 004564293 Problem PAD (peripheral artery disease) I73.9 Active 609808767 Problem 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.4 Active 646723247 Problem Recurrent major depressive disorder, in full remission F33.42 Active 998581362 Problem Diabetes E11.9 Active 00502267 Problem Hypertension I10 Active 16221825 Problem Back pain M54.9 Active 159039404 Problem Insulin long-term use Z79.4 Active 862672216 Problem COPD (chronic obstructive pulmonary disease) J44.9 Active 15743842 ALLERGIES No Information ENCOUNTERS Encounter Location Date Diagnosis [facility] [id number] [place] [address] 19009- 8115 September, Anxiety F41.9 and Back pain M54.9 [facility] [id number] [place] [address] 82730- 2683 September, Diabetes E11.9 ; Hypertension I10 ; COPD (chronic obstructive pulmonary disease) J44.9 and Lumbar radiculopathy, chronic M54.16 [facility] [address] [address] 6268 September, Anxiety F41.9 [facility] [id number] [place] [address] 72196- 2006 Aug, [facility] [id number] [place] [address] 68013- 0479 Aug, [facility] [id number] [place] [address] 45673- 0388 Aug, Anxiety F41.9 and Back pain M54.9 [facility] [id number] [place] [address] 06686- 0547 Aug, Medicare annual wellness visit, initial Z00.00 ; COPD ( chronic obstructive pulmonary disease) J44.9 ; PAD (peripheral artery disease) I73.9 ; Insulin long-term use Z79.4 ; Hypertension I10 ; Anxiety F41.9 ; Recurrent major depressive disorder, in full remission F33.42 ; Pressure ulcer of other site, stage 3 L89.893 ; Type 2 diabetes mellitus with diabetic peripheral angiopathy without gangrene E11.51 and 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.4 [facility] [id number] [place] [address] 25063- 0006 Jul, Back pain M54.9 [facility] [id number] [place] [address] 36399- 0497 Jul, [facility] [id number] [place] [address] 90674- 9238 Jul, Anxiety F41.9 and Back pain M54.9 [facility] [id number] [place] [address] 28948- 6714 Jul, Diabetes E11.9 [facility] [id number] [place] [address] 30304- 7312 May, [facility] [id number] [place] [address] 87087- 0645 May, Diabetes E11.9 ; Anxiety F41.9 ; Back pain M54.9 and COPD ( chronic obstructive pulmonary disease) J44.9 [facility] [id number] [address] 4127 May, Back pain M54.9 [facility] [id number] [place] [address] 23978- 5064 May, [facility] [id number] [place] [address] 73008- 6262 Apr, Back pain M54.9 [facility] [address] 69813- 2126 Mar, Back pain M54.9 [facility] [id number] [place] [address] 81244- 8481 Mar, [facility] [id number] [place] [address] 62275- 3512 16 Mar, 2017 [facility] [id number] [place] [address] 93778- 8406 14 Mar, 2017 Radiculopathy of lumbar region M54.16 [facility] [id number] [place] [address] 24786- 4009 13 Mar, 2017 [facility] [address] 07598- 2950 07 Mar, 2017 Encounter for immunization Z23 and Lumbar radiculopathy, chronic M54.16 [facility] [id number] [place] [address] 53053- 2665 Mar, Back pain M54.9 and Anxiety F41.9 [facility] [id number] [place] [address] 15410 -4280 Feb, Acute bilateral low back pain with left-sided sciatica M54.42 and Acute bilateral low back pain with right-sided sciatica M54.41 [facility] [id number] [place] [address] 86726- 1783 Feb, [facility] [id number] [place] [address] 79943- 9934 Feb, Back pain M54.9 [facility] [id number] [place] [address] 73964- 9965 05 Jan, 2017 Back pain M54.9 and Anxiety F41.9 [facility] [id number] [place] [address] 19836- 1289 05 Jan, 2017 Diabetes E11.9 [facility] [id number] [place] [address] 13517- 8304 Dec, Diabetes E11.9 ; Back pain M54.9 ; Anxiety F41.9 and Insulin long-term use Z79.4 [facility] [id number] [place] [address] 66111- 1414 Dec, Anxiety F41.9 [facility] [id number] [place] [address] 00183- 1047 Dec, Back pain M54.9 [facility] [id number] [place] [address] 33483- 2718 Nov, Back pain M54.9 [facility] [id number] [place] [address] 98275- 3622 Oct, Back pain M54.9 and Anxiety F41.9 [facility] [id number] [place] [address] 11003- 3348 September, Back pain M54.9 [facility] [id number] [place] [address] 73868- 6880 September, Back pain M54.9 and Anxiety F41.9 [facility] [id number] [place] [address] 92131- 4691 Aug, Diabetes E11.9 ; Anxiety F41.9 ; Back pain M54.9 and PAD ( peripheral artery disease) I73.9 [facility] [id number] [place] [address] 28512- 2679 Aug, Anxiety F41.9 [facility] [id number] [place] [address] 95495- 7026 Aug, Back pain M54.9 [facility] [id number] [place] [address] 44917- 3159 Jul, Back pain M54.9 [facility] [id number] [place] [address] 68603- 9696 Jul, Back pain M54.9 [facility] [id number] [place] [address] 21980- 0365 Jul, Back pain M54.9 [facility] [id number] [place] [address] 75548- 8177 Jul, Dorsalgia M54.9 [facility] [id number] [place] [address] 46891- 0646 Jul, [facility] [id number] [place] [address] 33850- 8585 May, Back pain M54.9 [facility] [id number] [place] [address] 26864- 1046 May, Diabetes E11.9 ; Anxiety F41.9 ; Port catheter in place Z95.828 ; Encounter for immunization Z23 and Insulin long-term use Z79.4 [facility] [id number] [place] [address] 07819- 5869 Apr, Back pain M54.9 [facility] [id number] [place] [address] 32884- 2228 Apr, Back pain M54.9 [facility] [id number] [place] [address] 18881- 7866 Apr, [facility] [id number] [place] [address] 45063- 1238 Apr, Back pain M54.9 [facility] [id number] [place] [address] 68344- 1641 Mar, COPD (chronic obstructive pulmonary disease) J44.9 [facility] [id number] [address]- 3051 Feb, [facility] [id number] [place] [address] 13168- 1609 30 Jan, 2016 [facility] [address], [place] [address]- 4864 20 Jan, 2016 [facility] [id number] [place] [address] 24557- 8562 07 Jan, 2016 [facility] [id number] [place] [address] 75557- 7727 Jan, [facility] [id number] [place] [address] 69755- 2132 Dec, Diabetes E11.9 ; Hypoxia R09.02 and Back pain M54.9 [facility] [id number] [place] [address] 25747- 2172 Dec, [facility] [id number] [place] [address] 60733- 8380 Nov, [facility] [id number] [place] [address] 67787- 2995 Oct, Anxiety F41.9 [facility] [id number] [place] [address] 94405- 9040 Oct, Back pain M54.9 [facility] [id number] [place] [address] 24023- 0912 September, Back pain M54.9 [facility] [address] [address]- 7601 September, Diabetes E11.9 [facility] [address] [address]- 9394 September, [facility] [address] [address]- 0271 September, Diabetes E11.9 ; Insulin long-term use Z79.4 and Back pain M54.9 [facility] [id number] [place] [address] 70358- 4837 Aug, Back pain M54.9 [facility] [id number] [place] [address] 77140- 8107 Aug, Back pain M54.9 ; Anxiety F41.9 and Arthropathy, unspecified M12.9 [facility] [address] 78877- 2988 Jul, Back pain M54.9 [facility] [id number] [place] [address] 08613- 8330 Jul, Anxiety F41.9 [facility] [address] 62317- 6474 Jul, Back pain M54.9 [facility] [address] 66858- 5676 Jul, [facility] [id number] [place] [address] 56742- 7419 Jul, [facility] [id number] [place] [address] 96293- 9409 May, Back pain M54.9 ; Diabetes E11.9 ; Insulin long-term use Z79.4 ; COPD (chronic obstructive pulmonary disease) J44.9 and Hypertension I10 [facility] [id number] [place] [address] 21461- 6666 May, Chronic pain G89.29 [facility] [id number] [place] [address] 89926- 7712 Apr, [facility] [id number] [place] [address] 89842- 0364 Apr, [facility] [id number] [place] [address] 73336- 0350 Mar, [facility] [address] [place] [address]- 7658 Mar, Encounter for immunization Z23 and Diabetes E11.9 [facility] [id number] [address]- 2896 Feb, [facility] [id number] [address]- 1013 Feb, [facility] [id number] [place] [address] 16081- 6311 Jan, [facility] [id number] [place] [address] 81500- 7116 Jan, [facility] [id number] [place] [address] 15688- 0175 Dec, [facility] [id number] [place] [address] 26453- 9406 Dec, [facility] [id number] [place] [address] 57832- 1864 Dec, Unspecified arthropathy, site unspecified 716.90 and Diabetes mellitus type 2, uncontrolled 250.02 [facility] [id number] [address]- 2026 Dec, [facility] [id number] [address]- 9598 Nov, [facility] [address], [place] [address]- 4302 Oct, [facility] [address], [place] [address]- 0936 September, [facility] [address], [place] [address]- 5996 September, [facility] [address], [place] [address]- 1581 September, [facility] [address] [address]- 1601 September, [facility] [place] [facility] [address] [id number] [place] [address]- 3617 14 Aug, 2014 [facility] [place] [facility] [address] [id number] [place] [address]- 5899 13 Aug, 2014 [facility] [place] [facility] [address] [id number] [place] [address]- 3799 18 Jul, 2014 [facility] [place] [facility] [address] [id number] [place] [address]- 2252 18 Jul, 2014 [facility] [place] [facility] [address] [id number] [place] [address]- 1068 16 Jul, 2014 [facility] [place] [facility] [address] [id number] [place] [address]- 5352 16 Jul, 2014 [facility] [place] [facility] [address] [id number] [place] [address]- 0190 16 Jul, 2014 [facility] [place] [facility] [address] [id number] [place] [address]- 1776 16 Jul, 2014 [facility] [place] [facility] [address] [id number] [place] [address]- 0601 16 Jul, 2014 [facility] [place] [facility] [address] [id number] [place] [address]- 8232 16 Jul, 2014 [facility] [place] [facility] [address] [id number] [place] [address]- 0105 16 Jul, 2014 [facility] [place] [facility] [address] [id number] [place] [address]- 9555 13 Jul, 2014 [facility] [place] [facility] [address] [id number] [place] [address]- 3524 13 Jul, 2014 [facility] [place] [facility] [address] [id number] [place] [address]- 1297 09 Jul, 2014 [facility] [place] [facility] [address] [id number] [place] [address]- 5215 09 Jul, 2014 [facility] [place] [facility] [address] [id number] [place] [address]- 1047 17 Jul, 2014 [facility] [place] [facility] [address] [id number] [place] [address]- 6274 17 Jul, 2014 [facility] [place] [facility] [address] [facility] [id number] [place] [address]- 8346 16 Jul, 2014 [facility] [place] [facility] [address] [facility] [id number] [place] [address]- 3028 16 Jul, 2014 [facility] [place] [facility] [address] [facility] [id number] [place] [address]- 8137 16 Jul, 2014 [facility] [place] [facility] [address] [id number] [place] [address]- 2055 16 Jul, 2014 [facility] [place] [facility] [address] [facility] [id number] [place] [address]- 4491 16 Jul, 2014 [facility] [place] [facility] [address] [facility] [id number] [place] [address]- 0387 16 Jul, 2014 [facility] [place] [facility] [address] [facility] [id number] [place] [address]- 3921 16 Jul, 2014 [facility] [place] [facility] [address] [facility] [id number] [place] [address]- 2899 16 Jul, 2014 [facility] [place] [facility] [address] [facility] [id number] [place] [address]- 1728 16 Jul, 2014 [facility] [place] [facility] [address] [facility] [id number] [place] [address]- 6936 16 Jul, 2014 [facility] [place] [facility] [address] [facility] [id number] [place] [address]- 254 16 Jul, 2014 [facility] [place] [facility] [address] [facility] [id number] [place] [address]- 2956 16 Jul, 2014 [facility] [place] [facility] [address] [facility] [id number] [place] [address]- 3512 16 Jul, 2014 [facility] [place] [facility] [address] [facility] [id number] [place] [address]- 0454 Jul, [facility] [place] [facility] [address] [id number] [place] [address]- 3475 May, [facility] [place] [facility] [address] [id number] [place] [address]- 4411 May, [facility] [place] [facility] [address] [id number] [place] [address]- 8777 May, [facility] [place] [facility] [address] [id number] [place] [address]- 3985 May, [facility] [place] [facility] [address] [id number] [place] [address]- 9596 May, [facility] [place] [facility] [address] [id number] [place] [address]- 3195 May, [facility] [place] [facility] [address] [id number] [place] [address]- 9654 May, [facility] [place] [facility] [address] [id number] [place] [address]- 1971 May, [facility] [place] [facility] [address] [id number] [place] [address]- 0796 May, [facility] [place] [facility] [address] [id number] [place] [address]- 0694 May, [facility] [place] [facility] [address] [id number] [place] [address]- 2495 Apr, [facility] [place] [facility] [address] [id number] [place] [address]- 9234 Apr, [facility] [place] [facility] [address] [id number] [place] [address]- 2215 Apr, [facility] [place] [facility] [address] [id number] [place] [address]- 0656 Apr, [facility] [place] [facility] [address] [id number] [place] 7089 Apr, [facility] [place] [facility] [address] [id number], [place] [address]- 2955 Apr, [facility] [place] [facility] [address] [id number] [place] [address]- 2087 Mar, [facility] [place] [facility] [address] [id number] [place] [address]- 8663 Mar, [facility] [place] [facility] [address] [id number] [place] [address]- 5925 Mar, [facility] [place] [facility] [address] [id number] [place] [address]- 4345 Mar, [facility] [place] [facility] [address] [id number] [place] [address]- 9162 Mar, [facility] [place] [facility] [address] [id number] [place] [address]- 1035 Mar, [facility] [place] [facility] [address] [id number] [place] [address]- 1121 Mar, [facility] [place] [facility] [address] [id number] [place] [address]- 5514 Mar, [facility] [place] [facility] [address] [id number] [place] [address]- 1827 Mar, [facility] [place] [facility] [address] [id number] [place] [address]- 4936 Mar, [facility] [place] [facility] [address] [id number] [place] [address]- 7864 Mar, [facility] [place] [facility] [address] [id number], [place] [address]- 0407 Feb, [facility] [place] [facility] [address] [id number], [place] [address]- 0839 Feb, [facility] [place] [facility] [address] [id number], [place] [address]- 0402 Feb, [facility] [place] [facility] [address] [id number], [place] [address]- 3375 Feb, [facility] [place] [facility] [address] [id number] [place] [address]- 9243 Feb, [facility] [place] [facility] [address] [id number] [place] [address]- 2141 Feb, [facility] [place] [facility] [address] [id number] [place] [address]- 0179 Feb, [facility] [place] [facility] [address] [id number] [place] [address]- 3072 Feb, [facility] [place] [facility] [address] [id number] [place] [address]- 7079 Feb, [facility] [place] [facility] [address] [id number] [place] [address] Feb, [facility] [place] [facility] [address] [id number] [place] [address] Jan, [facility] [place] [facility] [address] [id number] [place] [address] 22 Jan, 2014 [facility] [place] [facility] [address] [id number] [place] [address] 16 Jan, 2014 [facility] [place] [facility] [address] [id number] [place] [address] 16 Jan, 2014 [facility] [place] [facility] [address] [id number] [place] [address] 12 Jan, 2014 [facility] [place] [facility] [address] [id number] [place] [address] Jan, [facility] [place] [facility] [address] [id number] [place] [address] Jan, [facility] [place] [facility] [address] [id number] [place] [address] Dec, [facility] [place] [facility] [address] [id number] [place] [address] Dec, [facility] [place] [facility] [address] [id number] [place] [address] Dec, [facility] [place] [facility] [address] [id number] [place] [address] Dec, [facility] [place] [facility] [address] [id number] [place] [address] Dec, [facility] [place] [facility] [address] [id number] [place] [address] Dec, [facility] [place] [facility] [address] [id number] [place] [address] Dec, [facility] [place] [facility] [address] [id number] [place] [address] Dec, [facility] [place] [facility] [address] [id number] [place] [address] Oct, [facility] [place] [facility] [address] [id number] [place] [address] Oct, [facility] [place] [facility] [address] [id number] [place] [address] September, [facility] [place] [facility] [address] [id number] [place] [address] September, [facility] [place] [facility] [address] [id number] [place] [address] September, [facility] [place] [facility] [address] [id number] [place] [address] September, [facility] [place] [facility] [address] [id number] [place] [address] 110[address] September, [facility] [place] [facility] [address] [id number] [place] [address] September, [facility] [place] [facility] [address] [id number] [place] [address] September, [facility] [place] [facility] [address] [id number] [place] [address] Aug, [facility] [place] [facility] [address] [id number] [place] [address] 15 Aug, 2013 [facility] [place] [facility] [address] [id number] [place] [address] Jul, [facility] [place] [facility] [address] [id number] [place] [address] 24 Jul, 2013 [facility] [place] [facility] [address] [id number] [place] [address] Jul, [facility] [place] [facility] [address] [id number] [place] [address] Jul, [facility] [place] [facility] [address] [id number] [place] [address] Jul, [facility] [place] [facility] [address] [facility] [id number] [place] [address] Jul, [facility] [place] [facility] [address] [id number] [place] [address] Jul, [facility] [place] [facility] [address] [id number] [place] [address] Jul, [facility] [place] [facility] [address] [facility] [id number] [place] [address] May, [facility] [place] [facility] [address] [facility] [id number] [place] [address] May, [facility] [place] [facility] [address] [id number] [place] [address] May, [facility] [place] [facility] [address] [id number] [place] [address] May, [facility] [place] [facility] [address] [id number] [place] [address] Apr, [facility] [place] [facility] [address] [id number] [place] [address] Mar, [facility] [place] [facility] [address] [id number] [place] [address] Mar, [facility] [place] [facility] [address] [id number] [place] [address] Mar, [facility] [place] [facility] [address] [id number], [place] [address] Mar, [facility] [place] [facility] [address] [id number] [place] [address] Mar, [facility] [place] [facility] [address] [id number], [place] [address] Mar, [facility] [place] [facility] [address] [id number] [place] [address] Mar, [facility] [place] [facility] [address] [id number], [place] [address] Mar, [facility] [place] [facility] [address] [id number], [place] [address] Mar, [facility] [place] [facility] [address] [id number], [place] [address] Mar, [facility] [place] [facility] [address] [id number], [place] [address] Mar, [facility] [place] [facility] [address] [id number], [place] [address] 04 Mar, 2013 [facility] [place] [facility] [address] [id number], [place] [address] 15 Feb, 2013 [facility] [place] [facility] [address] [id number], [place] [address] 15 Feb, 2013 [facility] [place] [facility] [address] [id number], [place] [address] Feb, [facility] [place] [facility] [address] [id number], [place] [address] 11 Feb, 2013 [facility] [place] [facility] [address] [id number], [place] [address] 2014 Feb, [facility] [place] [facility] [address] [id number] [place] [address] Jan, [facility] [address] [id number] [place] [address] Dec, [facility] [address] [id number] [place] [address] Dec, [facility] [address] [id number] [place] [address] Dec, [facility] [address] [id number] [place] [address] Nov, [facility] [address] [id number] [place] [address] Nov, [facility] [address] [id number] [place] [address] Nov, [facility] [address] [id number] [place] [address] Oct, [facility] [address] [id number] [place] [address] Oct, [facility] [address] [id number] [place] [address]- 48[address] Oct, [facility] [address] [id number] [place] [address] September, [facility] [address] [id number] [place] [address]- 4584 September, [facility] [address] [id number] [place] [address]- [address] September, [facility] [place] [facility] [address] [id number] [place] [address] September, [facility] [place] [facility] [address] [id number] [place] [address] September, [facility] [address] [id number] [place] [address] Aug, [facility] [place] [facility] [address] [id number] [place] [address] 48[address] Aug, [facility] [address] [id number] [place] [address]- [address] Aug, [facility] [address] [id number] [place] [address] Jul, [facility] [address] [id number] [place] [address]- 8547 Jul, [facility] [address] [id number] [place] [address] 265[address] Jul, [facility] [address] [id number] [place] [address] Jul, [facility] [address] [id number] [place] [address]- [address] Jul, [facility] [address] [id number] [place] [address]- 6267 Jul, [facility] [address] [id number] [place] [address] Jul, [facility] [address] [id number] [place] [address]- 38[address] May, [facility] [address] [id number] [place] [address]- [address] May, [facility] [address] [id number], [place] [address] May, [facility] [address] [id number] [place] [address]- [address] Apr, [facility] [address] [id number] [place] [address]- [address] Apr, [facility] [address] [id number] [place] [address]- 9867 Apr, [facility] [address] [id number], [place] [address] Apr, [facility] [place] [facility] [address] [id number] [place] [address]- 8475 Apr, [facility] [place] [facility] [address] [id number] [place] [address]- [address] Mar, [facility] [place] [facility] [address] [facility] [id number] [place] [address]- [address]96 Mar, [facility] [place] [facility] [address] [id number] [place] [address]- 9673 Mar, [facility] [place] [facility] [address] [id number] [place] [address]- 6[address] Mar, [facility] [place] [facility] [address] [id number] [place] [address] 4[address] Feb, [facility] [place] [facility] [address] [facility] [id number] [place] [address]- 9065 Feb, [facility] [place] [facility] [address] [facility] [id number] [place] [address]- 69[address] Feb, [facility] [place] [facility] [address] [facility] [id number] [place] [address]- 9096 Feb, [facility] [place] [facility] [address] [facility] [id number] [place] [address] Feb, [facility] [place] [facility] [address] [facility] [id number] [place] [address]- [address] Jan, [facility] [place] [facility] [address] [facility] [id number], [place] [address] Dec, [facility] [place] [facility] [address] [id number] [place] [address]- 4084 Dec, [facility] [place] [facility] [address] [facility] [id number] [place] [address]- 7608 Dec, [facility] [place] [facility] [address] [facility] [id number] [place] [address]- 3786 Nov, [facility] [place] [facility] [address] [id number] [place] [address]- 9937 Nov, [facility] [place] [facility] [address] [id number] [place] [address]- 4568 Nov, [facility] [place] [facility] [address] [id number] [place] [address]- 8716 Oct, [facility] [place] [facility] [address] [id number] [place] [address]- 0179 Oct, [facility] [place] [facility] [address] [id number] [place] [address]- 7082 Oct, [facility] [place] [facility] [address] [id number] [place] [address]- 6134 Oct, [facility] [place] [facility] [address] [id number] [place] [address]- 5840 September, [facility] [place] [facility] [address] [id number] [place] [address]- 9176 September, [facility] [place] [facility] [address] [id number] [place] [address]- 9417 Aug, [facility] [place] [facility] [address] [id number] [place] [address]- 1855 Aug, [facility] [place] [facility] [address] [id number] [place] [address]- 6990 Aug, [facility] [place] [facility] [address] [id number] [place] [address]- 3910 Aug, [facility] [place] [facility] [address] [id number] [place] [address]- 9611 Aug, [facility] [place] [facility] [address] [id number] [place] [address]- 3540 Aug, [facility] [place] [facility] [address] [id number] [place] [address]- 7966 Aug, [facility] [place] [facility] [address] [id number] [place] [address]- 2956 Jul, [facility] [place] [facility] [address] [id number] [place] [address]- 5806 Jul, [facility] [place] [facility] [address] [id number] [place] [address]- 7785 Jul, [facility] [place] [facility] [address] [id number] [place] [address]- 3751 May, [facility] [place] [facility] [address] [id number] [place] [address]- 3843 May, [facility] [place] [facility] [address] [id number] [place] [address]- 2928 May, [facility] [place] [facility] [address] [id number] [place] [address]- 4416 Apr, [facility] [place] [facility] [address] [id number] [place] [address]- 7428 Apr, [facility] [place] [facility] [address] [id number] [place] [address]- 7720 Mar, [facility] [place] [facility] [address] [id number] [place] [address]- 6639 Mar, [facility] [place] [facility] [address] [id number] [place] [address]- 0083 Mar, [facility] [place] [facility] [address] [id number], [place] [address]- 6656 Mar, [facility] [place] [facility] [address] [id number], [place] [address]- 0413 Mar, [facility] [place] [facility] [address] [id number] [place] [address]- 9535 Mar, [facility] [place] [facility] [address] [id number], [place] [address]- 8790 Feb, [facility] [place] [facility] [address] [id number] [place] [address]- 5545 Feb, [facility] [place] [facility] [address] [facility] [id number] [place] [address]- 2718 Feb, IMMUNIZATIONS No Known Immunizations SOCIAL HISTORY Never Assessed REASON FOR VISIT Hydrocodone, Ms Contin, Soma and Xanax 04/30 PLAN OF CARE VITAL SIGNS MEDICATIONS Medication Instructions Dosage Frequency Start Date End Date Duration Status Xanax 1 Orally 3 times a day 1 tablet 8h Active Hydrocodone-Acetaminophen 10-325 MG Orally every 6 hrs 1 tablet as needed 6h Apr, 28 days Active MS Contin 30 MG Orally every 8 hours 1 tablet 8h Apr, 28 days Active Soma 350 mg Orally Once a day 1 tablet as needed 24h Active RESULTS No Results PROCEDURES No [...]
--- OUTSIDE RECORDS SUMMARY | 2018-05-16 07:10 | XMS REPORT ---
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 Role Phone FERNY SILVERIO Unavailable PROBLEMS Type Condition ICD9-CM Code WLR23-CI Code Onset Dates Condition Status SNOMED Code Problem Hypoxia R09.02 Active 034846956 Problem Port catheter in place Z95.828 Active 446200299 Problem Anxiety F41.9 Active 14578383 Problem Type 2 diabetes mellitus with diabetic peripheral angiopathy without gangrene E11.51 Active 033143069 Problem Pressure ulcer of other site, stage 3 L89.893 Active 741891286 Problem Lumbar radiculopathy, chronic M54.16 Active 409525061 Problem PAD (peripheral artery disease) I73.9 Active 071167910 Problem 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 Active 305741974 Problem Recurrent major depressive disorder, in full remission F33.42 Active 877300390 Problem Diabetes E11.9 Active 20777722 Problem Hypertension I10 Active 06125528 Problem Back pain M54.9 Active 541850466 Problem Insulin long-term use Z79.4 Active 441034714 Problem COPD (chronic obstructive pulmonary disease) J44.9 Active 25247597 ALLERGIES No Known Allergies ENCOUNTERS Encounter Location Date Diagnosis [place] [address], [place] [address] Oct, [facility] [address], [place] [address] 6769 Oct, Back pain M54.9 and Anxiety F41.9 [facility] [id number] [place] [address] 23939- 1257 September, Anxiety F41.9 and Back pain M54.9 [place] [address] [place] [id number] [place] [address] 04652- 9476 September, Diabetes E11.9 ; Hypertension I10 ; COPD (chronic obstructive pulmonary disease) J44.9 and Lumbar radiculopathy, chronic M54.16 [place] [address] [place] [id number] [place] [address] 66275- 6173 September, Anxiety F41.9 [place] [address] [place] [id number] [place] [address] 30105- 1663 Aug, [place] [address] [place] [id number] [place] [address] 41842- 5591 Aug, [place] [address] [place] [id number] [place] [address] 47831- 2263 Aug, Anxiety F41.9 and Back pain M54.9 [place] [address] [place] [id number] [place] [address] 67530- 1502 Aug, Medicare annual wellness visit, initial Z00.00 ; COPD ( chronic obstructive pulmonary disease) J44.9 ; PAD (peripheral artery disease) I73.9 ; Insulin long-term use Z79.4 ; Hypertension I10 ; Anxiety F41.9 ; Recurrent major depressive disorder, in full remission F33.42 ; Pressure ulcer of other site, stage 3 L89.893 ; Type 2 diabetes mellitus with diabetic peripheral angiopathy without gangrene E11.51 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 [place] [address] [place] [id number] [place] [address] 12148- 9260 Jul, Back pain M54.9 [place] [address] [place] [id number] [place] [address] 63216- 5208 Jul, [place] [address] [place] [id number] [place] [address] 51362- 8283 Jul, Anxiety F41.9 and Back pain M54.9 [place] [address] [place] [id number] [place] [address] 48434- 5572 Jul, Diabetes E11.9 [place] [address] 30134- 4108 May, [facility] [id number] [place] [address] 47673- 4943 May, Diabetes E11.9 ; Anxiety F41.9 ; Back pain M54.9 and COPD ( chronic obstructive pulmonary disease) J44.9 [facility] [id number] [place] [address] 83987- 5219 May, Back pain M54.9 [facility] [address] 49265- 1792 May, [facility] [address] [id number] [place] [address] 52958- 8997 Apr, Back pain M54.9 [facility] [id number] [place] [address] 16533- 7037 Mar, Back pain M54.9 [facility] [address] 80688- 6023 Mar, [facility] [address] 82254- 7771 Mar, [facility] [address] 33897- 0723 14 Mar, 2017 Radiculopathy of lumbar region M54.16 [facility] [address] [place] [id number] [place] [address] 22574- 7115 Mar, [facility] [address] 47016- 1522 07 Mar, 2017 Encounter for immunization Z23 and Lumbar radiculopathy, chronic M54.16 [facility] [address] 51702- 8997 Mar, Back pain M54.9 and Anxiety F41.9 [facility] [id number] [place] [address] 04717 -4418 10 Feb, 2017 Acute bilateral low back pain with left-sided sciatica M54.42 and Acute bilateral low back pain with right-sided sciatica M54.41 [facility] [address] [id number] [place] [address] 88576- 0478 Feb, [facility] [id number] [place] [address] 74177- 1326 Feb, Back pain M54.9 [facility] [id number] [place] [address] 80090- 6105 05 Jan, 2017 Back pain M54.9 and Anxiety F41.9 [facility] [address] [place] [id number] [place] [address] 01051- 8084 05 Jan, 2017 Diabetes E11.9 [place] [address] [place] [address] [id number] [place] [address] 84072- 7094 Dec, Diabetes E11.9 ; Back pain M54.9 ; Anxiety F41.9 and Insulin long-term use Z79.4 [place] [address] [place] [id number] [place] [address] 08503- 4886 Dec, Anxiety F41.9 [facility] [address] [place] [id number] [place] [address] 26638- 4786 Dec, Back pain M54.9 [facility] [address] [place] [id number] [place] [address] 40941- 2351 Nov, Back pain M54.9 [facility] [address] [place] [id number] [place] [address] 36504- 6874 Oct, Back pain M54.9 and Anxiety F41.9 [facility] [address] [place] [id number] [place] [address] 68383- 9809 September, Back pain M54.9 [facility] [address] [place] [id number] [place] [address] 34380- 0996 September, Back pain M54.9 and Anxiety F41.9 [facility] [address] [place] [id number] [place] [address] 91879- 2929 Aug, Diabetes E11.9 ; Anxiety F41.9 ; Back pain M54.9 and PAD ( peripheral artery disease) I73.9 [facility] [id number] [place] [address] 83193- 1646 19 Aug, 2016 Anxiety F41.9 [facility] [address] 45737 2546 14 Aug, 2016 Back pain M54.9 [facility] [address] 44493 2546 Jul, Back pain M54.9 [facility] [address] 52049- 6556 Jul, Back pain M54.9 [facility] [address] 59089- 6727 Jul, Back pain M54.9 [facility] [address] 30759- 8161 16 Jul, 2016 Dorsalgia M54.9 [facility] [address] 68893- 7645 Jul, [facility] [address] 10593- 1164 May, Back pain M54.9 [facility] [address] 92931- 4960 May, Diabetes E11.9 ; Anxiety F41.9 ; Port catheter in place Z95.828 ; Encounter for immunization Z23 and Insulin long-term use Z79.4 [facility] [address] [place] [id number] [place] [address] 63564- 1776 Apr, Back pain M54.9 [facility] [address] [id number] [place] [address] 71261- 4786 Apr, Back pain M54.9 [facility] [address] [id number] [place] [address] 62724- 8200 Apr, [facility] [address] [facility] [id number] [address] 5120 Apr, Back pain M54.9 [facility] [address] [place] [address] [id number] [place] [address] 56792- 1226 Mar, COPD (chronic obstructive pulmonary disease) J44.9 [facility] [address] [place] [id number] [place] [address] 80793- 4103 Feb, [facility] [address] [id number] [place] [address] 10098- 1791 30 Jan, 2016 [facility] [address] [id number] [place] [address] 10789- 4295 Jan, [facility] [address] [id number] [place] [address] 87822- 0702 Jan, [facility] [id number] [place] [address] 09106- 2673 Jan, [facility] [address] [place] [id number] [place] [address] 34332- 2281 Dec, Diabetes E11.9 ; Hypoxia R09.02 and Back pain M54.9 [facility] [address] [place] [address] 38242- 6694 Dec, [facility] [address] [place] [id number] [place] [address] 40398- 1296 Nov, [facility] [id number] [place] [address] 65469- 6688 Oct, Anxiety F41.9 [facility] [address] [place] [address] 89090- 5807 Oct, Back pain M54.9 [facility] [address] [place] [address] 73664- 3582 September, Back pain M54.9 [facility] [address], [place] [address]- 6714 September, Diabetes E11.9 [facility] [address] [place] [id number] [place] [address] 61298- 1133 September, [facility] [address] 99541- 2183 September, Diabetes E11.9 ; Insulin long-term use Z79.4 and Back pain M54.9 [place] [address] 02582- 1786 Aug, Back pain M54.9 [facility] [address] 01087- 6492 Aug, Back pain M54.9 ; Anxiety F41.9 and Arthropathy, unspecified M12.9 [facility] [address] [place] [id number] [place] [address] 86894- 9563 Jul, Back pain M54.9 [place] [address] 71597- 7946 Jul, Anxiety F41.9 [facility] [address] 56742- 8518 Jul, Back pain M54.9 [facility] [address] [place] [id number] [place] [address] 60113- 4106 Jul, [facility] [address] [place] [id number] [place] [address] 76393- 6038 Jul, [facility] [address] [place] [id number] [place] [address] 71125- 7570 May, Back pain M54.9 ; Diabetes E11.9 ; Insulin long-term use Z79.4 ; COPD (chronic obstructive pulmonary disease) J44.9 and Hypertension I10 [place] [address] [place] [id number] [place] [address] 53660- 3701 May, Chronic pain G89.29 [place] [address] [place] [id number] [place] [address] 60778- 7525 Apr, [place] [address], [place] [address]- 2359 Apr, [facility] [address] [place] [id number] [place] [address] 08167- 6611 Mar, [facility] [id number] [address]- 2395 Mar, Encounter for immunization Z23 and Diabetes E11.9 [facility] [address] [id number] [place] [address] 68158- 8602 Feb, [facility] [address] [id number] [place] [address] 09916- 8789 Feb, [facility] [address] [id number] [place] [address] 37672- 5039 Jan, [facility] [address] [id number] [place] [address] 75551- 0582 Jan, [facility] [address] [id number] [place] [address] 72269- 6755 Dec, [facility] [id number] [place] [address] 85158- 3313 Dec, [facility] [id number] [address]- 1343 Dec, Unspecified arthropathy, site unspecified 716.90 and Diabetes mellitus type 2, uncontrolled 250.02 [facility] [address], [place] [address]- 4679 Dec, [facility] [address], [place] [address]- 3751 Nov, [facility] [address] [place] [address] [id number] [place] [address] 13639- 4450 Oct, [facility] [address], [place] [address]- 8812 September, [facility] [address] [place] [id number] [place] [address] 75411- 3471 September, [facility] [place] [facility] [address] [id number] [place] [address]- 3176 18 Sep, 2014 [facility] [place] [facility] [address] [id number] [place] [address]- 7635 September, [facility] [place] [facility] [address] [id number] [place] [address]- 9935 14 Aug, 2014 [facility] [place] [facility] [address] [id number] [place] [address]- 3147 13 Aug, 2014 [facility] [place] [facility] [address] [id number] [place] [address]- 6917 18 Jul, 2014 [facility] [place] [facility] [address] [id number] [place] [address]- 8991 18 Jul, 2014 [facility] [place] [facility] [address] [id number] [place] [address]- 4703 16 Jul, 2014 [facility] [place] [facility] [address] [id number] [place] [address]- 7166 16 Jul, 2014 [facility] [place] [facility] [address] [id number] [place] [address]- 8699 16 Jul, 2014 [facility] [place] [facility] [address] [id number] [place] [address]- 9265 16 Jul, 2014 [facility] [place] [facility] [address] [id number] [place] [address]- 1539 16 Jul, 2014 [facility] [place] [facility] [address] [id number] [place] [address]- 0520 16 Jul, 2014 [facility] [place] [facility] [address] [id number] [place] [address]- 4618 16 Jul, 2014 [facility] [place] [facility] [address] [id number] [place] [address]- 5113 13 Jul, 2014 [facility] [place] [facility] [address] [id number] [place] [address]- 1677 13 Jul, 2014 [facility] [place] [facility] [address] [id number] [place] [address]- 0412 Jul, 2014 [facility] [place] [facility] [address] [id number] [place] [address]- 1743 Jul, 2014 [facility] [place] [facility] [address] [id number] [place] [address]- 6299 17 Jul, 2014 [facility] [place] [facility] [address] [id number] [place] [address]- 5461 17 Jul, 2014 [facility] [place] [facility] [address] [id number] [place] [address]- 9557 16 Jul, 2014 [facility] [place] [facility] [address] [id number] [place] [address]- 0386 Jul, 2014 [facility] [place] [facility] [address] [facility] [id number] [place] [address]- 8517 16 Jul, 2014 [facility] [place] [facility] [address] [id number] [place] [address]- 0157 16 Jul, 2014 [facility] [place] [facility] [address] [id number] [place] [address]- 9133 16 Jul, 2014 [facility] [place] [facility] [address] [facility] [id number] [place] [address]- 7616 16 Jul, 2014 [facility] [place] [facility] [address] [facility] [id number] [place] [address]- 5223 16 Jul, 2014 [facility] [place] [facility] [address] [facility] [id number], [place] [address]- 0308 Jul, 2014 [facility] [place] [facility] [address] [facility] [id number] [place] [address]- 3189 Jul, 2014 [facility] [place] [facility] [address] [id number] [place] [address]- 4192 16 Jul, 2014 [facility] [place] [facility] [address] [facility] [id number], [place] [address]- 4446 16 Jul, 2014 [facility] [place] [facility] [address] [facility] [id number], [place] [address]- 3000 Jul, [facility] [place] [facility] [address] [id number] [place] [address]- 6703 Jul, [facility] [place] [facility] [address] [id number] [place] [address]- 9365 Jul, [facility] [place] [facility] [address] [id number] [place] [address]- 5637 May, [facility] [place] [facility] [address] [id number] [place] [address]- 0185 May, [facility] [place] [facility] [address] [id number] [place] [address]- 3516 May, [facility] [place] [facility] [address] [id number] [place] [address]- 0020 May, [facility] [place] [facility] [address] [id number] [place] [address]- 2500 May, [facility] [place] [facility] [address] [id number] [place] [address]- 6452 May, [facility] [place] [facility] [address] [id number] [place] [address]- 0168 May, [facility] [place] [facility] [address] [id number] [place] [address]- 1731 May, [facility] [place] [facility] [address] [id number] [place] [address]- 7370 May, [facility] [place] [facility] [address] [id number] [place] [address]- 0349 May, [facility] [place] [facility] [address] [id number] [place] [address]- 1290 Apr, [facility] [place] [facility] [address] [id number] [place] [address]- 3017 Apr, [facility] [place] [facility] [address] [id number] [place] [address]- 1985 Apr, [facility] [place] [facility] [address] [id number] [place] [address]- 4339 Apr, [facility] [place] [facility] [address] [id number] [place] [address]- 4986 Apr, [facility] [place] [facility] [address] [id number] [place] [address]- 0822 Apr, [facility] [place] [facility] [address] [id number] [place] [address]- 5713 Mar, [facility] [place] [facility] [address] [id number] [place] [address]- 2293 Mar, [facility] [place] [facility] [address] [id number] [place] [address]- 4295 Mar, [facility] [place] [facility] [address] [id number] [place] [address]- 9156 Mar, [facility] [place] [facility] [address] [id number] [place] [address]- 4932 Mar, [facility] [place] [facility] [address] [id number] [place] [address]- 0813 Mar, [facility] [place] [facility] [address] [id number] [place] [address]- 7269 Mar, [facility] [place] [facility] [address] [id number] [place] [address]- 3506 Mar, [facility] [place] [facility] [address] [id number] [place] [address]- 7491 Mar, [facility] [place] [facility] [address] [id number] [place] [address]- 5863 Mar, [facility] [place] [facility] [address] [id number] [place] [address]- 6339 Mar, [facility] [place] [facility] [address] [id number] [place] [address]- 8316 Feb, [facility] [place] [facility] [address] [id number] [place] [address]- 6180 30 Feb, 2014 [facility] [place] [facility] [address] [id number] [place] [address]- 6328 15 Feb, 2014 [facility] [place] [facility] [address] [id number] [place] [address]- 2726 Feb, [facility] [place] [facility] [address] [id number] [place] [address]- 4501 Feb, [facility] [place] [facility] [address] [id number] [place] [address]- 9438 Feb, [facility] [place] [facility] [address] [id number] [place] [address]- 6465 Feb, [facility] [place] [facility] [address] [id number] [place] [address]- 4683 Feb, [facility] [place] [facility] [address] [id number] [place] [address]- 0512 Feb, [facility] [place] [facility] [address] [id number] [place] [address]- 5706 Feb, [facility] [place] [facility] [address] [id number] [place] [address]- 0446 22 Jan, 2014 [facility] [place] [facility] [address] [id number] [place] [address]- 4984 22 Jan, 2013 [facility] [place] [facility] [address] [id number], [place] [address]- 5910 16 Jan, 2013 [facility] [place] [facility] [address] [id number], [place] [address]- 7795 16 Jan, 2013 [facility] [place] [facility] [address] [id number] [place] [address]- 7462 12 Jan, 2013 [facility] [place] [facility] [address] [id number] [place] [address]- 9594 04 Jan, 2013 [facility] [place] [facility] [address] [id number] [place] [address]- 5917 04 Jan, 2013 [facility] [place] [facility] [address] [id number] [place] [address]- 7736 Dec, [facility] [address] [id number] [place] [address] Dec, [facility] [place] [facility] [address] [id number] [place] [address] Dec, [facility] [place] [facility] [address] [id number] [place] [address] Dec, [facility] [place] [facility] [address] [id number] [place] [address] Dec, [facility] [place] [facility] [address] [id number] [place] [address] Dec, [facility] [place] [facility] [address] [id number] [place] [address] Dec, [facility] [address] [id number] [place] [address] Dec, [facility] [address] [id number] [place] [address] Oct, [facility] [place] [facility] [address] [id number] [place] [address] Oct, [facility] [address] [id number] [place] [address] September, [facility] [place] [facility] [address] [id number] [place] [address] September, [facility] [place] [facility] [address] [id number] [place] [address] September, [facility] [place] [facility] [address] [id number] [place] [address]- [address] September, [facility] [place] [facility] [address] [id number] [place] [address] September, [facility] [place] [facility] [address] [id number] [place] [address] September, [facility] [place] [facility] [address] [id number] [place] [address] September, [facility] [place] [facility] [address] [id number] [place] [address] Aug, [facility] [place] [facility] [address] [id number] [place] [address] Aug, [facility] [place] [facility] [address] [id number] [place] [address]- [address] 24 Jul, 2013 [facility] [place] [facility] [address] [id number] [place] [address] 24 Jul, 2013 [facility] [place] [facility] [address] [id number] [place] [address] Jul, [facility] [place] [facility] [address] [id number] [place] [address] Jul, [facility] [place] [facility] [address] [id number] [place] [address] 14 Jul, 2013 [facility] [place] [facility] [address] [id number] [place] [address] 14 Jul, 2013 [facility] [place] [facility] [address] [id number] [place] [address] Jul, [facility] [place] [facility] [address] [id number] [place] [address] Jul, [facility] [place] [facility] [address] [id number] [place] [address] May, [facility] [place] [facility] [address] [id number] [place] [address] May, [facility] [place] [facility] [address] [id number] [place] [address] May, [facility] [place] [facility] [address] [id number] [place] [address] May, [facility] [place] [facility] [address] [id number] [place] [address] 18 Apr, 2013 [facility] [address] [id number] [place] [address] Mar, [facility] [place] [facility] [address] [id number] [place] [address] Mar, [facility] [address] [id number] [place] [address] Mar, [facility] [place] [facility] [address] [id number] [place] [address] Mar, [facility] [address] [id number] [place] [address] Mar, [facility] [place] [facility] [address] [id number] [place] [address] Mar, [facility] [address] [id number] [place] [address] Mar, [facility] [address] [id number] [place] [address]- [address] 18 Mar, 2013 [facility] [place] [facility] [address] [id number] [place] [address] Mar, [facility] [address] [facility] [id number], [place] [address] Mar, [facility] [place] [facility] [address] [id number] [place] [address] Mar, [facility] [place] [facility] [address] [id number], [place] [address] 04 Mar, 2013 [facility] [place] [facility] [address] [id number] [place] [address] 15 Feb, 2013 [facility] [place] [facility] [address] [id number] [place] [address] 15 Feb, 2013 [facility] [place] [facility] [address] [id number], [place] [address] Feb, [facility] [place] [facility] [address] [id number] [place] [address] Feb, [facility] [place] [facility] [address] [id number] [place] [address] Feb, [facility] [place] [facility] [address] [id number] [place] [address] 25[address] Jan, [facility] [place] [facility] [address] [id number] [place] [address] Dec, [facility] [place] [facility] [address] [id number] [place] [address] Dec, [facility] [place] [facility] [address] [id number] [place] [address] Dec, [facility] [place] [facility] [address] [id number] [place] [address] Nov, [facility] [place] [facility] [address] [id number] [place] [address] Nov, [facility] [place] [facility] [address] [id number] [place] [address] Nov, [facility] [place] [facility] [address] [id number] [place] [address] Oct, [facility] [place] [facility] [address] [id number] [place] [address] Oct, [facility] [place] [facility] [address] [id number], [place] [address] Oct, [facility] [place] [facility] [address] [id number] [place] [address] September, [facility] [place] [facility] [address] [id number] [place] [address] September, [facility] [place] [facility] [address] [id number] [place] [address]47 September, [facility] [place] [facility] [address] [id number], [place] [address] September, [facility] [address] [id number] [place] [address] September, [facility] [address] [id number] [place] [address] Aug, [facility] [address] [id number] [place] [address] Aug, [facility] [address] [id number] [place] [address] Aug, [facility] [address] [id number] [place] [address] Jul, [facility] [address] [id number] [place] [address] Jul, [facility] [address] [id number] [place] [address] Jul, [facility] [address] [id number] [place] [address] Jul, [facility] [address] [id number] [place] [address]65 Jul, [facility] [address] [id number] [place] [address] Jul, [facility] [address] [id number] [place] [address] Jul, [facility] [address] [id number] [place] [address]800 May, [facility] [address] [id number] [place] [address] 75[address] May, [facility] [address] [id number] [place] [address] May, [facility] [address] [id number] [place] [address]79 Apr, [facility] [place] [facility] [address] [id number] [place] [address] Apr, [facility] [place] [facility] [address] [id number] [place] [address] Apr, [facility] [place] [facility] [address] [id number] [place] [address]- 2546 Apr, [facility] [place] [facility] [address] [id number] [place] [address] 2546 Apr, [facility] [place] [facility] [address] [id number] [place] [address]97 Mar, [facility] [place] [facility] [address] [id number] [place] [address] Mar, [facility] [place] [facility] [address] [id number] [place] [address] 9[address] Mar, [facility] [place] [facility] [address] [id number] [place] [address] 8265 Mar, [facility] [place] [facility] [address] [id number] [place] [address]79 Feb, [facility] [place] [facility] [address] [id number] [place] [address]- 9474 Feb, [facility] [place] [facility] [address] [id number] [place] [address]- 8717 Feb, [facility] [place] [facility] [address] [id number] [place] [address]- 7234 Feb, [facility] [place] [facility] [address] [id number] [place] [address] 2548 Feb, [facility] [place] [facility] [address] [id number] [place] [address] Jan, [facility] [place] [facility] [address] [id number] [place] [address] 2546 Dec, [facility] [place] [facility] [address] [id number] [place] [address]- 8036 Dec, [facility] [place] [facility] [address] [id number] [place] [address] 9501 Dec, [facility] [place] [facility] [address] [id number] [place] [address]- 3542 Nov, [facility] [place] [facility] [address] [id number] [place] [address]- 3286 Nov, [facility] [place] [facility] [address] [id number] [place] [address]- [address]75 Nov, [facility] [place] [facility] [address] [id number] [place] [address]- 7111 Oct, [facility] [place] [facility] [address] [id number] [place] [address]- [address]354 Oct, [facility] [place] [facility] [address] [id number] [place] [address]- 5279 Oct, [facility] [place] [facility] [address] [id number] [place] [address]- 6063 Oct, [facility] [place] [facility] [address] [id number] [place] [address]- 6931 September, [facility] [place] [facility] [address] [id number] [place] [address]- [address] September, [facility] [place] [facility] [address] [id number] [place] [address]- [address] 30 Aug, 2011 [facility] [place] [facility] [address] [id number] [place] [address]- 2266 Aug, [facility] [place] [facility] [address] [id number] [place] [address]- 5113 Aug, [facility] [place] [facility] [address] [id number] [place] [address]- [address] 09 Aug, 2011 [facility] [place] [facility] [address] [id number] [place] [address]- 2563 Aug, [facility] [place] [facility] [address] [id number] [place] [address]- [address]17 05 Aug, 2011 [facility] [address] [id number] [place] [address]- 2699 Aug, [facility] [place] [facility] [address] [id number] [place] [address]- 8556 Jul, [facility] [address] [id number] [place] [address]- 6782 Jul, [facility] [place] [facility] [address] [id number] [place] [address]- 4264 Jul, [facility] [place] [facility] [address] [id number] [place] [address]- 5861 May, [facility] [place] [facility] [address] [id number] [place] [address]- 5425 May, [facility] [address] [id number] [place] [address]- 9400 May, [facility] [address] [id number] [place] [address]- 5671 Apr, [facility] [place] [facility] [address] [id number] [place] [address]- 1279 Apr, [facility] [place] [facility] [address] [facility] [id number] [place] [address]- 4298 Mar, [facility] [place] [facility] [address] [id number] [place] [address]- 378[address] Mar, [facility] [place] [facility] [address] [id number] [place] [address]- 74[address] Mar, [facility] [place] [facility] [address] [id number] [place] [address]- 3562 Mar, [facility] [place] [facility] [address] [id number] [place] [address]- 7843 Mar, [facility] [place] [facility] [address] [id number] [place] [address]- 66[address] Mar, [facility] [address] [facility] [id number], [place] [address] Feb, [facility] [address] [facility] [id number], [place] [address]- [address]659 Feb, [facility] [address] [facility] [id number], [place] [address] Feb, IMMUNIZATIONS No Known Immunizations SOCIAL HISTORY Never Assessed REASON FOR VISIT 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)-Lori HORN, PT brings in a letter from the hospital stating he is in need of an O2 re-sert PLAN OF CARE Activity Details Follow Up 3 Months Reason: VITAL SIGNS Height 72 in 2017-06-28 Weight 265.2 lbs 2017-06-28 Temperature 98.3 degrees Fahrenheit 2017-06-28 Heart Rate 80 bpm 2017-06-28 Respiratory Rate 22 2017-06-28 Oximetry w/ oxygen @ 2L:94 % 2017-06-28 BMI 35.96 kg/m2 2017-06-28 Blood pressure systolic 124 mmHg 2017-06-28 Blood pressure diastolic 72 mmHg 2017-06-28 MEDICATIONS Medication Instructions Dosage Frequency Start Date End Date Duration Status Tizanidine HCl 4 MG Orally Three times a day 1 tablet as needed 8h Jul, Active Albuterol Sulfate (2.5 MG/3ML) 0.083% Inhalation Three times a day 3 ml 8h May, Active Lopid 600 TAKE ONE TABLET BY MOUTH TWICE A DAY 30 Active Cymbalta 60 TAKE ONE CAPSULE BY MOUTH ONCE A DAY 30 Active Oxygen 2 LPM inhalation at night while sleeping Active Remeron 30 TAKE ONE TABLET BY MOUTH EVERY NIGHT AT BEDTIME 30 Active Celexa 40 TAKE ONE TABLET BY MOUTH DAILY 30 Active Atorvastatin Calcium 40 MG TAKE ONE TABLET BY MOUTH DAILY 30 Active MS Contin 30 MG Orally every 8 hours 1 tablet 8h May, 28 days Active Xanax 1 MG Orally TID PRN 1 tablet May, Active Metformin HCl 1,000 TAKE ONE TABLET BY MOUTH EVERY MORNING AND WITH EVENING MEALS TWO TIMES A DAY 30 Active Humalog KwikPen 100 UNIT/ML INJECT 30 UNITS SUBCUTANEOUSLY THREE TIMES DAILY 17 Active Lyrica 225 Orally Twice a day 1 capsule 12h 30 Active Amlodipine Besylate 10 MG TAKE ONE TABLET BY MOUTH DAILY 30 Active Xanax 1 Orally 3 times a day 1 tablet 8h Active Toujeo SoloStar 300 unit/mL INJECT 120 UNITS UNDER THE SKIN AT BEDTIME 30 Active Bactrim DS 800-160 MG Orally Twice a day 1 tablet 12h Active Hydrocodone-Acetaminophen 10-325 MG Orally every 6 hrs 1 tablet as needed 6h May, 28 days Active Blood Glucose Test Strip as directed Mar, Active AgaMatrix Presto Test - TEST BLOOD SUGAR TWO TIMES A DAY . E11.9 50 Active Soma 350 mg Orally Once a day 1 tablet as needed 24h Active RESULTS Name Result Date Reference Range A1C (IN HOUSE) 2017-06-28 A1C IN HOUSE 9.1 4.3 - 5.6 % Previous A1c 7.5 Lot [id number] Exp date 02/2019 PROCEDURES Procedure Date Ordered Result Body Site MEASURE BLOOD OXYGEN LEVEL Jun 28, 2017 GLYCATED HEMOGLOBIN TEST Jun 28, 2017 INSTRUCTIONS MEDICATIONS ADMINISTERED No Known [...]
--- OUTSIDE RECORDS SUMMARY | 2018-05-16 07:11 | XMS REPORT ---
Author Author FERNY SILVERIO Organization [facility] Address [address] [place] [address] Care Team Providers Care Backshoe Person Name Role Phone FERNY SILVERIO Unavailable PROBLEMS Type Condition ICD9-CM Code ANR83-AS Code Onset Dates Condition Status SNOMED Code Problem Hypoxia R09.02 Active 013145244 Problem Port catheter in place Z95.828 Active 952211638 Problem Anxiety F41.9 Active 72481789 Problem Type 2 diabetes mellitus with diabetic peripheral angiopathy without gangrene E11.51 Active 712164034 Problem Pressure ulcer of other site, stage 3 L89.893 Active 504548622 Problem Lumbar radiculopathy, chronic M54.16 Active 827960071 Problem PAD (peripheral artery disease) I73.9 Active 633220278 Problem 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 099757198 Problem Recurrent major depressive disorder, in full remission F33.42 Active 041050145 Problem Diabetes E11.9 Active 89740827 Problem Hypertension I10 Active 79798589 Problem Back pain M54.9 Active 868095034 Problem Insulin long-term use Z79.4 Active 378133468 Problem COPD (chronic obstructive pulmonary disease) J44.9 Active 08035901 ALLERGIES No Information ENCOUNTERS Encounter Location Date Diagnosis [place] [id number] [address] Oct, [facility] [address], [place] [address] Oct, Back pain M54.9 and Anxiety F41.9 [facility] [id number] [place] [address] 37328- 9045 September, Anxiety F41.9 and Back pain M54.9 [place] [id number] [place] [address] 55839- 9771 September, Diabetes E11.9 ; Hypertension I10 ; COPD (chronic obstructive pulmonary disease) J44.9 and Lumbar radiculopathy, chronic M54.16 [place] [address] [id number] [place] [address] 68908- 8755 September, Anxiety F41.9 [place] [address] [id number] [place] [address] 30961- 4825 Aug, [place] [address] [id number] [place] [address] 35329- 7665 Aug, [place] [address] [id number] [place] [address] 93961- 1061 Aug, Anxiety F41.9 and Back pain M54.9 [place] [address] [id number] [place] [address] 59779- 9809 Aug, Medicare annual wellness visit, initial Z00.00 [...] and assisted current use of insulin Z79.4 [place] [address] [id number] [place] [address] 33789- 2661 Jul, Back pain M54.9 [place] [address] [id number] [place] [address] 01482- 1811 Jul, [place] [address] [id number] [place] [address] 60992- 0980 Jul, Anxiety F41.9 and Back pain M54.9 [place] [address] [id number] [place] [address] 88229- 2953 Jul, Diabetes E11.9 [place] [address] [id number] [place] [address] 40660- 7080 May, [facility] [id number] [place] [address] 93904- 3209 May, Diabetes E11.9 ; Anxiety F41.9 ; Back pain M54.9 and COPD ( chronic obstructive pulmonary disease) J44.9 [facility] [id number] [place] [address] 27173- 3916 May, Back pain M54.9 [facility] [address] 50235- 4348 May, [facility] [id number] [place] [address] 10518- 8363 Apr, Back pain M54.9 [facility] [id number] [place] [address] 86257- 6404 Mar, Back pain M54.9 [facility] [address] 65919- 0664 Mar, [facility] [address] [id number] [place] [address] 45922- 7099 Mar, [facility] [address] 42760- 1959 14 Mar, 2017 Radiculopathy of lumbar region M54.16 [facility] [address] [id number] [place] [address] 16682- 7500 Mar, [facility] [address] 53316- 9446 07 Mar, 2017 Encounter for immunization Z23 and Lumbar radiculopathy, chronic M54.16 [facility] [address] 18654- 8186 Mar, Back pain M54.9 and Anxiety F41.9 [facility] [id number] [place] [address] 42698 -0536 10 Feb, 2017 Acute bilateral low back pain with left-sided sciatica M54.42 and Acute bilateral low back pain with right-sided sciatica M54.41 [facility] [id number] [place] [address] 02993- 4620 Feb, [facility] [id number] [place] [address] 26478- 2606 Feb, Back pain M54.9 [facility] [id number] [place] [address] 89888- 1864 05 Jan, 2017 Back pain M54.9 and Anxiety F41.9 [facility] [address] [id number] [place] [address] 41565- 2231 05 Jan, 2017 Diabetes E11.9 [place] [id number] [place] [address] 64125- 2690 Dec, Diabetes E11.9 ; Back pain M54.9 ; Anxiety F41.9 and Insulin long-term use Z79.4 [place] [address] [id number] [place] [address] 34986- 4896 Dec, Anxiety F41.9 [facility] [address] [id number] [place] [address] 66306- 9972 Dec, Back pain M54.9 [facility] [address] [id number] [place] [address] 35955- 7087 Nov, Back pain M54.9 [facility] [address] [id number] [place] [address] 73054- 0695 Oct, Back pain M54.9 and Anxiety F41.9 [facility] [address] [id number] [place] [address] 64298- 2929 September, Back pain M54.9 [facility] [address] [id number] [place] [address] 44507- 7922 September, Back pain M54.9 and Anxiety F41.9 [facility] [id number] [place] [address] 77393- 2714 Aug, Diabetes E11.9 ; Anxiety F41.9 ; Back pain M54.9 and PAD ( peripheral artery disease) I73.9 [facility] [address] 69820- 2506 19 Aug, 2016 Anxiety F41.9 [facility] [address] 11621- 8046 14 Aug, 2016 Back pain M54.9 [facility] [address] 92225- 7026 Jul, Back pain M54.9 [facility] [address] 31673- 8997 Jul, Back pain M54.9 [facility] [address] 74388- 7208 Jul, Back pain M54.9 [facility] [address] 55315- 7538 16 Jul, 2016 Dorsalgia M54.9 [facility] [address] 03675- 4116 Jul, [facility] [address] 03478- 8429 May, Back pain M54.9 [facility] [address] 77777- 0992 May, Diabetes E11.9 ; Anxiety F41.9 ; Port catheter in place Z95.828 ; Encounter for immunization Z23 and Insulin long-term use Z79.4 [facility] [address] [id number] [place] [address] 96371- 8684 Apr, Back pain M54.9 [facility] [address] 21081- 7283 Apr, Back pain M54.9 [facility] [address] 70709- 2753 Apr, [place] [address] [address]- 1859 Apr, Back pain M54.9 [facility] [id number] [place] [address] 18087- 0759 Mar, COPD (chronic obstructive pulmonary disease) J44.9 [facility] [address] [id number] [place] [address] 16806- 3527 Feb, [facility] [id number] [place] [address] 76344- 6275 30 Jan, 2016 [facility] [address] [id number] [place] [address] 41218- 7280 Jan, [facility] [address] [id number] [place] [address] 49706- 0436 Jan, [facility] [address] [id number] [place] [address] 93993- 9628 Jan, [facility] [address] [id number] [place] [address] 34535- 3956 Dec, Diabetes E11.9 ; Hypoxia R09.02 and Back pain M54.9 [facility] [address] [id number] [place] [address] 08460- 7506 Dec, [facility] [id number] [place] [address] 73492- 8494 Nov, [facility] [id number] [place] [address] 33888- 9700 Oct, Anxiety F41.9 [facility] [id number] [place] [address] 94934- 3058 Oct, Back pain M54.9 [facility] [id number] [place] [address] 22282- 3505 September, Back pain M54.9 [facility] [id number] [place] [address] 22001- 9415 September, Diabetes E11.9 [facility] [address] [id number] [place] [address] 04971- 1472 September, [facility] [address] 06774- 2092 September, Diabetes E11.9 ; Insulin long-term use Z79.4 and Back pain M54.9 [facility] [id number] [place] [address] 77972- 6410 Aug, Back pain M54.9 [facility] [address] 70601- 9561 Aug, Back pain M54.9 ; Anxiety F41.9 and Arthropathy, unspecified M12.9 [facility] [address] [id number] [place] [address] 47741- 7903 Jul, Back pain M54.9 [place] [address] 24504- 2562 Jul, Anxiety F41.9 [facility] [address] 22738- 4135 Jul, Back pain M54.9 [facility] [id number] [place] [address] 03709- 5534 Jul, [facility] [id number] [place] [address] 50374- 8546 Jul, [facility] [address] [id number] [place] [address] 10322- 6573 May, Back pain M54.9 ; Diabetes E11.9 ; Insulin long-term use Z79.4 ; COPD (chronic obstructive pulmonary disease) J44.9 and Hypertension I10 [place] [address] [id number] [place] [address] 74529- 1766 May, Chronic pain G89.29 [place] [address] [id number] [place] [address] 26403- 4975 Apr, [place] [address], [place] [address]- 2116 Apr, [facility] [address], [place] [address]- 1040 Mar, [facility] [id number] [address]- 2286 Mar, Encounter for immunization Z23 and Diabetes E11.9 [facility] [address] [id number] [place] [address] 29891- 7210 Feb, [facility] [address] [id number] [place] [address] 60845- 1724 Feb, [facility] [address] [id number] [place] [address] 22999- 0878 Jan, [facility] [id number] [place] [address] 76021- 2396 Jan, [facility] [id number] [place] [address] 05850- 4546 Dec, [facility] [address] [id number] [place] [address] 64615- 4577 Dec, [facility] [address], [place] [address]- 0468 Dec, Unspecified arthropathy, site unspecified 716.90 and Diabetes mellitus type 2, uncontrolled 250.02 [facility] [address], [place] [address]- 9971 Dec, [facility] [address], [place] [address]- 3211 Nov, [facility] [id number] [address]- 6027 Oct, [facility] [address], [place] [address]- 2620 September, [facility] [id number] [place] [address] 76545- 8061 September, [facility] [place] [facility] [address] [id number] [place] [address]- 1213 September, [facility] [place] [facility] [address] [id number] [place] [address]- 2155 September, [facility] [place] [facility] [address] [id number] [place] [address]- 9792 14 Aug, 2014 [facility] [place] [facility] [address] [id number] [place] [address]- 8499 13 Aug, 2014 [facility] [place] [facility] [address] [id number] [place] [address]- 9751 18 Jul, 2014 [facility] [place] [facility] [address] [id number] [place] [address]- 1190 18 Jul, 2014 [facility] [place] [facility] [address] [id number] [place] [address]- 9365 16 Jul, 2014 [facility] [place] [facility] [address] [id number] [place] [address]- 5584 16 Jul, 2014 [facility] [place] [facility] [address] [id number] [place] [address]- 5837 16 Jul, 2014 [facility] [place] [facility] [address] [id number] [place] [address]- 7251 16 Jul, 2014 [facility] [place] [facility] [address] [id number] [place] [address]- 3702 16 Jul, 2014 [facility] [place] [facility] [address] [id number] [address]- 3808 16 Jul, 2014 [facility] [place] [facility] [address] [id number] [place] [address]- 7911 16 Jul, 2014 [facility] [place] [facility] [address] [id number] [place] [address]- 9494 13 Jul, 2014 [facility] [place] [facility] [address] [id number] [place] [address]- 2978 13 Jul, 2014 [facility] [place] [facility] [address] [id number] [place] [address]- 8716 09 Jul, 2014 [facility] [place] [facility] [address] [id number] [place] [address]- 9702 Jul, 2014 [facility] [place] [facility] [address] [id number] [place] [address]- 0315 17 Jul, 2014 [facility] [place] [facility] [address] [id number] [place] [address]- 8677 17 Jul, 2014 [facility] [place] [facility] [address] [id number] [place] [address]- 4621 16 Jul, 2014 [facility] [place] [facility] [address] [id number] [place] [address]- 3176 16 Jul, 2014 [facility] [place] [facility] [address] [facility] [id number] [place] [address]- 8299 16 Jul, 2014 [facility] [place] [facility] [address] [facility] [id number] [place] [address]- 8573 16 Jul, 2014 [facility] [place] [facility] [address] [id number] [place] [address]- 1370 16 Jul, 2014 [facility] [place] [facility] [address] [facility] [id number] [place] [address]- 4093 16 Jul, 2014 [facility] [place] [facility] [address] [facility] [id number] [place] [address]- 6859 16 Jul, 2014 [facility] [place] [facility] [address] [facility] [id number] [address]- 8158 Jul, 2014 [facility] [place] [facility] [address] [facility] [id number] [place] [address]- 0960 16 Jul, 2014 [facility] [place] [facility] [address] [id number] [place] [address]- 0798 16 Jul, 2014 [facility] [place] [facility] [address] [facility] [id number] [place] [address]- 3742 16 Jul, 2014 [facility] [place] [facility] [address] [facility] [id number] [address]- 8362 Jul, [facility] [place] [facility] [address] [id number] [place] [address]- 6797 Jul, [facility] [place] [facility] [address] [id number] [place] [address]- 0937 Jul, [facility] [place] [facility] [address] [id number] [place] [address]- 1510 May, [facility] [place] [facility] [address] [id number] [place] [address]- 6164 May, [facility] [place] [facility] [address] [id number] [place] [address]- 1184 May, [facility] [place] [facility] [address] [id number] [place] [address]- 0733 May, [facility] [place] [facility] [address] [id number] [place] [address]- 8559 May, [facility] [place] [facility] [address] [id number] [place] [address]- 3890 May, [facility] [place] [facility] [address] [id number] [place] [address]- 4136 May, [facility] [place] [facility] [address] [id number] [place] [address]- 6853 May, [facility] [place] [facility] [address] [id number] [place] [address]- 2887 May, [facility] [place] [facility] [address] [id number] [place] [address]- 4873 May, [facility] [place] [facility] [address] [id number] [place] [address]- 3554 Apr, [facility] [place] [facility] [address] [id number] [place] [address]- 9434 Apr, [facility] [place] [facility] [address] [id number] [place] [address]- 6362 Apr, [facility] [place] [facility] [address] [id number] [place] [address]- 3333 Apr, [facility] [place] [facility] [address] [id number] [place] [address]- 3566 Apr, [facility] [place] [facility] [address] [id number] [place] [address]- 6100 Apr, [facility] [place] [facility] [address] [id number] [place] [address]- 9756 Mar, [facility] [place] [facility] [address] [id number] [place] [address]- 9932 Mar, [facility] [place] [facility] [address] [id number] [place] [address]- 4296 Mar, [facility] [place] [facility] [address] [id number] [place] [address]- 6644 Mar, [facility] [place] [facility] [address] [id number] [place] [address]- 3637 Mar, [facility] [place] [facility] [address] [id number] [place] [address]- 5095 Mar, [facility] [place] [facility] [address] [id number] [place] [address]- 1567 Mar, [facility] [place] [facility] [address] [id number] [place] [address]- 2553 Mar, [facility] [place] [facility] [address] [id number] [place] [address]- 1029 Mar, [facility] [place] [facility] [address] [id number] [place] [address]- 4183 Mar, [facility] [place] [facility] [address] [id number] [place] [address]- 1202 Mar, [facility] [place] [facility] [address] [id number] [place] [address]- 0647 Feb, [facility] [place] [facility] [address] [id number] [place] [address]- 9025 30 Feb, 2014 [facility] [place] [facility] [address] [id number] [place] [address]- 8655 Feb, [facility] [place] [facility] [address] [id number] [place] [address]- 2314 Feb, [facility] [place] [facility] [address] [id number] [place] [address]- 7894 Feb, [facility] [place] [facility] [address] [id number] [place] [address]- 0148 Feb, [facility] [place] [facility] [address] [id number] [place] [address]- 6874 Feb, [facility] [place] [facility] [address] [id number] [place] [address]- 4042 Feb, [facility] [place] [facility] [address] [id number] [place] [address]- 9605 Feb, [facility] [place] [facility] [address] [id number], [place] [address]- 6083 Feb, [facility] [place] [facility] [address] [id number] [place] [address]- 2178 22 Jan, 2014 [facility] [place] [facility] [address] [id number] [place] [address]- 6133 22 Jan, 2013 [facility] [place] [facility] [address] [id number], [place] [address]- 7425 16 Jan, 2013 [facility] [place] [facility] [address] [id number], [place] [address]- 254 16 Jan, 2013 [facility] [place] [facility] [address] [id number] [place] [address]- 5047 12 Jan, 2014 [facility] [place] [facility] [address] [id number][place] [address]- 5965 04 Jan, 2013 [facility] [place] [facility] [address] [id number][place] [address]- 7798 04 Jan, 2013 [facility] [place] [facility] [address] [id number] [place] [address]- 4791 Dec, [facility] [place] [facility] [address] [id number] [place] [address]- 1548 Dec, [facility] [place] [facility] [address] [id number] [place] [address]- 3296 Dec, [facility] [place] [facility] [address] [id number] [place] [address]- 6363 Dec, [facility] [place] [facility] [address] [id number] [place] [address]- 9519 Dec, [facility] [place] [facility] [address] [id number] [place] [address]- 8153 Dec, [facility] [place] [facility] [address] [id number] [place] [address]- 1287 Dec, [facility] [place] [facility] [address] [id number] [place] [address]- 7464 Dec, [facility] [place] [facility] [address] [id number] [place] [address]- 1826 Oct, [facility] [place] [facility] [address] [id number] [place] [address] Oct, [facility] [place] [facility] [address] [id number] [place] [address] September, [facility] [place] [facility] [address] [id number] [place] [address] September, [facility] [place] [facility] [address] [id number] [place] [address] September, [facility] [place] [facility] [address] [id number] [place] [address] September, [facility] [place] [facility] [address] [id number] [place] [address] September, [facility] [place] [facility] [address] [id number] [place] [address] September, [facility] [place] [facility] [address] [id number] [place] [address] September, [facility] [place] [facility] [address] [id number] [place] [address] Aug, [facility] [place] [facility] [address] [id number] [place] [address] Aug, [facility] [place] [facility] [address] [id number] [place] [address] Jul, [facility] [place] [facility] [address] [id number] [place] [address] Jul, [facility] [place] [facility] [address] [id number] [place] [address] Jul, [facility] [place] [facility] [address] [id number] [place] [address] Jul, [facility] [place] [facility] [address] [id number] [place] [address] Jul, [facility] [place] [facility] [address] [id number] [place] [address] Jul, [facility] [place] [facility] [address] [id number] [place] [address] Jul, [facility] [place] [facility] [address] [id number] [place] [address] Jul, [facility] [place] [facility] [address] [id number] [place] [address] May, [facility] [place] [facility] [address] [id number] [place] [address] May, [facility] [place] [facility] [address] [id number] [place] [address] May, [facility] [place] [facility] [address] [id number] [place] [address] May, [facility] [place] [facility] [address] [id number] [place] [address] 18 Apr, 2013 [facility] [place] [facility] [address] [id number] [place] [address] Mar, [facility] [place] [facility] [address] [id number] [place] [address] Mar, [facility] [place] [facility] [address] [id number] [place] [address] Mar, [facility] [place] [facility] [address] [id number] [place] [address] Mar, [facility] [place] [facility] [address] [id number] [place] [address] Mar, [facility] [place] [facility] [address] [id number] [place] [address] Mar, [facility] [place] [facility] [address] [id number] [place] [address] Mar, [facility] [place] [facility] [address] [id number] [place] [address] Mar, [facility] [place] [facility] [address] [id number] [place] [address] Mar, [facility] [place] [facility] [address] [facility] [id number] [place] [address] Mar, [facility] [place] [facility] [address] [id number] [place] [address] Mar, [facility] [place] [facility] [address] [id number] [address] 04 Mar, 2013 [facility] [place] [facility] [address] [id number] [place] [address] 15 Feb, 2013 [facility] [place] [facility] [address] [id number] [place] [address] 15 Feb, 2013 [facility] [place] [facility] [address] [id number] [address] Feb, [facility] [place] [facility] [address] [id number] [place] [address] Feb, [facility] [facility] [address] [id number] [place] [address] Feb, [facility] [address] [id number] [place] [address] Jan, [facility] [place] [facility] [address] [id number] [place] [address] Dec, [facility] [address] [id number] [place] [address] Dec, [facility] [address] [id number] [place] [address] Dec, [facility] [address] [id number] [place] [address] Nov, [facility] [address] [id number] [place] [address] Nov, [facility] [address] [id number] [place] [address] Nov, [facility] [address] [id number] [place] [address] Oct, [facility] [place] [facility] [address] [id number] [place] [address] Oct, [facility] [place] [facility] [address] [id number] [place] [address] Oct, [facility] [place] [facility] [address] [id number] [place] [address] September, [facility] [place] [facility] [address] [id number] [place] [address] September, [facility] [place] [facility] [address] [id number] [place] [address] September, [facility] [place] [facility] [address] [id number] [place] [address] September, [facility] [address] [id number] [place] [address] September, [facility] [address] [id number] [place] [address] Aug, [facility] [address] [id number] [place] [address] Aug, [facility] [address] [id number] [place] [address] Aug, [facility] [address] [id number] [place] [address] Jul, [facility] [address] [id number] [place] [address] Jul, [facility] [address] [id number] [place] [address] Jul, [facility] [address] [id number] [place] [address] Jul, [facility] [address] [id number] [place] [address] Jul, [facility] [address] [id number] [place] [address] Jul, [facility] [address] [id number] [place] [address] Jul, [facility] [address] [id number] [place] [address] May, [facility] [place] [facility] [address] [id number] [place] [address] May, [facility] [place] [facility] [address] [id number] [place] [address] May, [facility] [address] [id number] [place] [address] Apr, [facility] [place] [facility] [address] [id number] [place] [address] Apr, [facility] [place] [facility] [address] [id number] [place] [address] Apr, [facility] [place] [facility] [address] [id number] [place] [address] Apr, [facility] [place] [facility] [address] [id number] [place] [address] Apr, [facility] [place] [facility] [address] [id number] [place] [address] Mar, [facility] [place] [facility] [address] [id number] [place] [address] Mar, [facility] [place] [facility] [address] [id number] [place] [address] Mar, [facility] [place] [facility] [address] [id number] [place] [address] Mar, [facility] [place] [facility] [address] [id number] [place] [address] Feb, [facility] [place] [facility] [address] [id number] [place] [address] Feb, [facility] [place] [facility] [address] [facility] [id number] [place] [address] Feb, [facility] [place] [facility] [address] [id number] [place] [address] Feb, [facility] [place] [facility] [address] [id number] [place] [address] Feb, [facility] [place] [facility] [address] [id number] [place] [address] Jan, [facility] [place] [facility] [address] [id number] [place] [address] Dec, [facility] [place] [facility] [address] [id number] [place] [address] Dec, [facility] [place] [facility] [address] [id number] [place] [address] Dec, [facility] [place] [facility] [address] [id number] [place] [address] Nov, [facility] [place] [facility] [address] [id number] [place] [address] 8632 Nov, [facility] [place] [facility] [address] [id number] [place] [address] Nov, [facility] [place] [facility] [address] [id number] [place] [address] Oct, [facility] [place] [facility] [address] [id number] [place] [address]- 7[address] Oct, [facility] [place] [facility] [address] [id number] [place] [address] Oct, [facility] [place] [facility] [address] [id number] [place] [address] Oct, [facility] [place] [facility] [address] [id number] [place] [address] 0[address] September, [facility] [place] [facility] [address] [id number] [place] [address] 8589 September, [facility] [place] [facility] [address] [id number] [place] [address] 30 Aug, 2011 [facility] [place] [facility] [address] [id number] [place] [address]- [address] 23 Aug, 2011 [facility] [place] [facility] [address] [id number] [place] [address]- [address] 10 Aug, 2011 [facility] [place] [facility] [address] [id number] [place] [address]- [address] 09 Aug, 2011 [facility] [place] [facility] [address] [id number] [place] [address]- 0797 Aug, [facility] [place] [facility] [address] [id number] [place] [address]- [address] 05 Aug, 2011 [facility] [address] [id number] [place] [address]- [address]807 Aug, [facility] [place] [facility] [address] [id number] [place] [address]- 6[address] Jul, [facility] [place] [facility] [address] [id number] [place] [address]- [address] Jul, [facility] [place] [facility] [address] [id number] [place] [address]- [address]87 Jul, [facility] [place] [facility] [address] [id number] [place] [address]- 75[address] May, [facility] [place] [facility] [address] [id number] [place] [address]- [address] May, [facility] [place] [facility] [address] [id number] [place] [address]- [address]39 May, [facility] [place] [facility] [address] [id number] [place] [address]- 27[address] Apr, [facility] [place] [facility] [address] [id number] [place] [address]- 0294 Apr, [facility] [place] [facility] [address] [facility] [id number] [place] [address]- [address] Mar, [facility] [place] [facility] [address] [id number] [place] [address]- 117[address] Mar, [facility] [place] [facility] [address] [id number] [place] [address]- 4[address] Mar, [facility] [place] [facility] [address] [id number] [place] [address]- 4949 Mar, [facility] [place] [facility] [address] [id number] [place] [address]- 4760 Mar, [facility] [place] [facility] [address] [id number] [address] Mar, [facility] [address] [facility] [id number] [place] [address] Feb, [facility] [address] [facility] [id number] [place] [address] Feb, [facility] [address] [facility] [id number] [place] [address] Feb, IMMUNIZATIONS No Known Immunizations SOCIAL HISTORY Never Assessed REASON FOR VISIT COntrolled meds, 06/25 PLAN OF CARE VITAL SIGNS MEDICATIONS Medication Instructions Dosage Frequency Start Date End Date Duration Status Hydrocodone-Acetaminophen 10-325 MG Orally every 6 hrs 1 tablet as needed 6h May, 28 days Active Xanax 1 Orally 3 times a day 1 tablet 8h Active Soma 350 mg Orally Once a day 1 tablet as needed 24h Active MS Contin 30 MG Orally every 8 hours 1 tablet 8h May, 28 days Active RESULTS No Results [...]
--- OUTSIDE RECORDS SUMMARY | 2018-05-16 07:12 | XMS REPORT ---
Author Author FERNY SILVERIO Organization [facility] [place] Address [address] [place] [address] Care Team Providers Care Pipelayer Name Role Phone FERNY SILVERIO Unavailable PROBLEMS Type Condition ICD9-CM Code KBP15-ZI Code Onset Dates Condition Status SNOMED Code Problem Hypoxia R09.02 Active 110174890 Problem Port catheter in place Z95.828 Active 921549027 Problem Anxiety F41.9 Active 40985383 Problem Type 2 diabetes mellitus with diabetic peripheral angiopathy without gangrene E11.51 Active 672874509 Problem Pressure ulcer of other site, stage 3 L89.893 Active 787829087 Problem Lumbar radiculopathy, chronic M54.16 Active 842169562 Problem PAD (peripheral artery disease) I73.9 Active 029856529 Problem 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 897353124 Problem Recurrent major depressive disorder, in full remission F33.42 Active 501776007 Problem Diabetes E11.9 Active 24803514 Problem Hypertension I10 Active 58494051 Problem Back pain M54.9 Active 219080338 Problem Insulin long-term use Z79.4 Active 912317195 Problem COPD (chronic obstructive pulmonary disease) J44.9 Active 64525282 ALLERGIES No Information ENCOUNTERS Encounter Location Date Diagnosis [place] [id number] [address] Oct, [facility] [place] [id number] [address] 0910 Oct, Back pain M54.9 and Anxiety F41.9 [facility] [place] [id number] [place] [address] 20405- 5525 September, Anxiety F41.9 and Back pain M54.9 [place] [id number] [place] [address] 13604- 3719 September, Diabetes E11.9 ; Hypertension I10 ; COPD (chronic obstructive pulmonary disease) J44.9 and Lumbar radiculopathy, chronic M54.16 [place] [address] [place] [id number] [place] [address] 21856- 2644 September, Anxiety F41.9 [place] [address] [place] [id number] [place] [address] 96618- 2059 Aug, [place] [address] [place] [id number] [place] [address] 92361- 8696 Aug, [place] [address] [place] [id number] [place] [address] 62910- 1329 Aug, Anxiety F41.9 and Back pain M54.9 [place] [address] [place] [id number] [place] [address] 81818- 1920 Aug, Medicare annual wellness visit, initial Z00.00 ; COPD ( chronic obstructive pulmonary disease) J44.9 ; PAD (peripheral artery disease) I73.9 ; Insulin long-term use Z79.4 ; Hypertension I10 ; Anxiety F41.9 ; Recurrent major depressive disorder, in full remission F33.42 ; Pressure ulcer of other site, stage 3 L89.893 ; Type 2 diabetes mellitus with diabetic peripheral angiopathy without gangrene E11.51 and [facility] current use of insulin Z79.4 [place] [address] [place] [id number] [place] [address] 12703- 9347 Jul, Back pain M54.9 [place] [address] [place] [id number] [place] [address] 67731- 5542 Jul, [place] [address] [place] [id number] [place] [address] 27366- 0464 Jul, Anxiety F41.9 and Back pain M54.9 [place] [address] [place] [id number] [place] [address] 14011- 3027 Jul, Diabetes E11.9 [place] [address] [place] [id number] [place] [address] 42562- 0716 May, [facility] [place] [address] [place] [id number] [place] [address] 80390- 8614 May, Diabetes E11.9 ; Anxiety F41.9 ; Back pain M54.9 and COPD ( chronic obstructive pulmonary disease) J44.9 [facility] [place] [address] [place] [id number] [place] [address] 22462- 5387 May, Back pain M54.9 [facility] [place] [address] 58915- 0544 May, [facility] [place] [address] [place] [id number] [place] [address] 95982- 4738 Apr, Back pain M54.9 [facility] [place] [address] [place] [id number] [place] [address] 51372- 4464 Mar, Back pain M54.9 [facility] [place] [address] 48467- 1570 Mar, [facility] [place] [address] [place] [id number] [place] [address] 64409- 8237 Mar, [facility] [place] [address] 30320- 7723 14 Mar, 2017 Radiculopathy of lumbar region M54.16 [facility] [place] [address] [place] [id number] [place] [address] 80086- 0779 Mar, [facility] [place] [address] 70209- 1621 07 Mar, 2017 Encounter for immunization Z23 and Lumbar radiculopathy, chronic M54.16 [facility] [place] [address] 53439- 5523 Mar, Back pain M54.9 and Anxiety F41.9 [facility] [address] [place] [id number] [place] [address] 13598 -1633 10 Feb, 2017 Acute bilateral low back pain with left-sided sciatica M54.42 and Acute bilateral low back pain with right-sided sciatica M54.41 [facility] [place] [address] [place] [id number] [place] [address] 66650- 4392 Feb, [facility] [place] [address] [place] [id number] [place] [address] 72955- 0971 Feb, Back pain M54.9 [facility] [place] [address] [place] [id number] [place] [address] 11544- 9654 05 Jan, 2017 Back pain M54.9 and Anxiety F41.9 [facility] [place] [address] [place] [id number] [place] [address] 54670- 7127 05 Jan, 2017 Diabetes E11.9 [place] [address] [place] [id number] [place] [address] 43347- 4265 Dec, Diabetes E11.9 ; Back pain M54.9 ; Anxiety F41.9 and Insulin long-term use Z79.4 [place] [address] [place] [id number] [place] [address] 35811- 2939 Dec, Anxiety F41.9 [facility] [place] [address] [place] [id number] [place] [address] 72470- 2873 Dec, Back pain M54.9 [facility] [place] [address] [place] [id number] [place] [address] 51168- 8841 Nov, Back pain M54.9 [facility] [place] [address] [place] [id number] [place] [address] 64082- 2062 Oct, Back pain M54.9 and Anxiety F41.9 [facility] [place] [address] [place] [id number] [place] [address] 89050- 5575 September, Back pain M54.9 [facility] [place] [address] [place] [id number] [place] [address] 73039- 2226 September, Back pain M54.9 and Anxiety F41.9 [facility] [place] [address] [place] [id number] [place] [address] 02346- 5103 Aug, Diabetes E11.9 ; Anxiety F41.9 ; Back pain M54.9 and PAD ( peripheral artery disease) I73.9 [facility] [place] [address] 98074- 9616 19 Aug, 2016 Anxiety F41.9 [facility] [place] [address] 30776- 4286 14 Aug, 2016 Back pain M54.9 [facility] [place] [address] 23447- 6556 Jul, Back pain M54.9 [facility] [place] [address] 43098- 5833 Jul, Back pain M54.9 [facility] [place] [address] 22945- 7927 Jul, Back pain M54.9 [facility] [place] [address] 99975- 3848 16 Jul, 2016 Dorsalgia M54.9 [facility] [place] [address] 28442- 1207 Jul, [facility] [place] [address] 96508- 1005 May, Back pain M54.9 [facility] [place] [address] 26987- 8447 May, Diabetes E11.9 ; Anxiety F41.9 ; Port catheter in place Z95.828 ; Encounter for immunization Z23 and Insulin long-term use Z79.4 [facility] [place] [address] [place] [id number] [place] [address] 81038- 5634 Apr, Back pain M54.9 [facility] [place] [address] 71889- 8183 Apr, Back pain M54.9 [facility] [place] [address] 09688- 1035 Apr, [place] [address] [address]- 8303 Apr, Back pain M54.9 [facility] [place] [address] [place] [id number] [place] [address] 92107- 2927 Mar, COPD (chronic obstructive pulmonary disease) J44.9 [facility] [place] [address] [place] [id number] [place] [address] 59898- 7917 Feb, [facility] [place] [address] [place] [id number] [place] [address] 65192- 1566 30 Jan, 2016 [facility] [place] [address] [place] [id number] [place] [address] 23704- 6689 Jan, [facility] [place] [address] [place] [id number] [place] [address] 71044- 0789 Jan, [facility] [place] [address] [place] [id number] [place] [address] 30991- 8844 Jan, [facility] [place] [address] [place] [id number] [place] [address] 17740- 0341 Dec, Diabetes E11.9 ; Hypoxia R09.02 and Back pain M54.9 [facility] [place] [address] [place] [id number] [place] [address] 49203- 6482 Dec, [facility] [place] [id number] [place] [address] 12816- 7514 Nov, [facility] [place] [id number] [place] [address] 00159- 8317 Oct, Anxiety F41.9 [facility] [place] [id number] [place] [address] 12760- 4860 Oct, Back pain M54.9 [facility] [place] [id number] [place] [address] 85599- 5281 September, Back pain M54.9 [facility] [place] [id number] [place] [address] 99889- 9299 September, Diabetes E11.9 [facility] [place] [address] [place] [id number] [place] [address] 99423- 8720 September, [facility] [place] [address] 97817- 7690 September, Diabetes E11.9 ; Insulin long-term use Z79.4 and Back pain M54.9 [facility] [place] [address] [place] [id number] [place] [address] 46078- 8346 Aug, Back pain M54.9 [facility] [place] [address] 01266- 9117 Aug, Back pain M54.9 ; Anxiety F41.9 and Arthropathy, unspecified M12.9 [facility] [place] [address] [place] [id number] [place] [address] 92330- 1837 Jul, Back pain M54.9 [place] [address] 27683- 9992 Jul, Anxiety F41.9 [facility] [place] [address] 65778- 6737 Jul, Back pain M54.9 [facility] [place] [address] [place] [id number] [place] [address] 94722- 7155 Jul, [facility] [place] [address] [place] [id number] [place] [address] 94947- 9964 Jul, [facility] [place] [address] [place] [id number] [place] [address] 34777- 5662 May, Back pain M54.9 ; Diabetes E11.9 ; Insulin long-term use Z79.4 ; COPD (chronic obstructive pulmonary disease) J44.9 and Hypertension I10 [place] [address] [place] [id number] [place] [address] 74755- 3118 May, Chronic pain G89.29 [place] [address] [place] [id number] [place] [address] 40046- 2306 Apr, [place] [address] [address]- 7649 Apr, [facility] [place] [address] [address]- 3707 Mar, [facility] [place] [address] [place] [id number] [address]- 9689 Mar, Encounter for immunization Z23 and Diabetes E11.9 [facility] [place] [address] [place] [id number] [place] [address] 22144- 2543 Feb, [facility] [place] [address] [place] [id number] [place] [address] 82040- 7375 Feb, [facility] [place] [address] [place] [id number] [place] [address] 73930- 6085 Jan, [facility] [place] [address] [place] [id number] [place] [address] 02767- 2512 Jan, [facility] [place] [id number] [place] [address] 21012- 1019 Dec, [facility] [place] [address] [place] [id number] [place] [address] 16855- 1977 Dec, [facility] [place] [address] [address]- 9104 Dec, Unspecified arthropathy, site unspecified 716.90 and Diabetes mellitus type 2, uncontrolled 250.02 [facility] [place] [id number] [address]- 6152 Dec, [facility] [place] [id number] [address]- 5798 Nov, [facility] [place] [address] [place] [id number] [address]- 7994 Oct, [facility] [place] [address] [address]- 9958 September, [facility] [place] [id number] [place] [address] 32962- 4400 September, [facility] [place] [facility] [address] [id number] [place] [address]- 0683 September, [facility] [place] [facility] [address] [id number] [place] [address]- 0324 September, [facility] [place] [facility] [address] [id number] [place] [address]- 5895 14 Aug, 2014 [facility] [place] [facility] [address] [id number] [place] [address]- 4864 13 Aug, 2014 [facility] [place] [facility] [address] [id number] [place] [address]- 7697 18 Jul, 2014 [facility] [place] [facility] [address] [id number] [place] [address]- 0126 18 Jul, 2014 [facility] [place] [facility] [address] [id number] [place] [address]- 5423 16 Jul, 2014 [facility] [place] [facility] [address] [id number] [place] [address]- 2427 16 Jul, 2014 [facility] [place] [facility] [address] [id number] [place] [address]- 9522 16 Jul, 2014 [facility] [place] [facility] [address] [id number] [place] [address]- 0126 16 Jul, 2014 [facility] [place] [facility] [address] [id number] [place] [address]- 4067 16 Jul, 2014 [facility] [place] [facility] [address] [id number] [address]- 7525 16 Jul, 2014 [facility] [place] [facility] [address] [id number] [place] [address]- 6163 16 Jul, 2014 [facility] [place] [facility] [address] [id number] [place] [address]- 8633 13 Jul, 2014 [facility] [place] [facility] [address] [id number] [place] [address]- 9889 13 Jul, 2014 [facility] [place] [facility] [address] [id number] [place] [address]- 8356 09 Jul, 2014 [facility] [place] [facility] [address] [id number] [place] [address]- 1954 Jul, 2014 [facility] [place] [facility] [address] [id number] [place] [address]- 4483 17 Jul, 2014 [facility] [place] [facility] [address] [id number] [place] [address]- 5373 17 Jul, 2014 [facility] [place] [facility] [address] [id number] [place] [address]- 8445 16 Jul, 2014 [facility] [place] [facility] [address] [id number] [place] [address]- 0937 16 Jul, 2014 [facility] [place] [facility] [address] [facility] [id number] [place] [address]- 1109 16 Jul, 2014 [facility] [place] [facility] [address] [facility] [id number] [place] [address]- 8430 16 Jul, 2014 [facility] [place] [facility] [address] [id number] [place] [address]- 8462 16 Jul, 2014 [facility] [place] [facility] [address] [facility] [id number] [place] [address]- 9185 16 Jul, 2014 [facility] [place] [facility] [address] [facility] [id number] [place] [address]- 0101 16 Jul, 2014 [facility] [place] [facility] [address] [facility] [id number] [address]- 5935 Jul, 2014 [facility] [place] [facility] [address] [facility] [id number] [place] [address]- 1941 16 Jul, 2014 [facility] [place] [facility] [address] [id number] [place] [address]- 1648 16 Jul, 2014 [facility] [place] [facility] [address] [facility] [id number] [place] [address]- 7358 16 Jul, 2014 [facility] [place] [facility] [address] [facility] [id number] [address]- 0280 Jul, [facility] [place] [facility] [address] [id number] [place] [address]- 0722 Jul, [facility] [place] [facility] [address] [id number] [place] [address]- 3488 Jul, [facility] [place] [facility] [address] [id number] [place] [address]- 4054 May, [facility] [place] [facility] [address] [id number] [place] [address]- 0052 May, [facility] [place] [facility] [address] [id number] [place] [address]- 4754 May, [facility] [place] [facility] [address] [id number] [place] [address]- 2629 May, [facility] [place] [facility] [address] [id number] [place] [address]- 7528 May, [facility] [place] [facility] [address] [id number] [place] [address]- 4809 May, [facility] [place] [facility] [address] [id number] [place] [address]- 3023 May, [facility] [place] [facility] [address] [id number] [place] [address]- 5837 May, [facility] [place] [facility] [address] [id number] [place] [address]- 9615 May, [facility] [place] [facility] [address] [id number] [place] [address]- 1854 May, [facility] [place] [facility] [address] [id number] [place] [address]- 7874 Apr, [facility] [place] [facility] [address] [id number] [place] [address]- 8795 Apr, [facility] [place] [facility] [address] [id number] [place] [address]- 1460 Apr, [facility] [place] [facility] [address] [id number] [place] [address]- 7264 Apr, [facility] [place] [facility] [address] [id number] [place] [address]- 2147 Apr, [facility] [place] [facility] [address] [id number] [place] [address]- 3538 Apr, [facility] [place] [facility] [address] [id number] [place] [address]- 7007 Mar, [facility] [place] [facility] [address] [id number] [place] [address]- 8435 Mar, [facility] [place] [facility] [address] [id number] [place] [address]- 2872 Mar, [facility] [place] [facility] [address] [id number] [place] [address]- 6270 Mar, [facility] [place] [facility] [address] [id number] [place] [address]- 2040 Mar, [facility] [place] [facility] [address] [id number] [place] [address]- 0497 Mar, [facility] [place] [facility] [address] [id number] [place] [address]- 8891 Mar, [facility] [place] [facility] [address] [id number] [place] [address] Mar, [facility] [place] [facility] [address] [id number] [place] [address] Mar, [facility] [place] [facility] [address] [id number] [place] [address] Mar, [facility] [place] [facility] [address] [id number] [place] [address] Mar, [facility] [place] [facility] [address] [id number] [place] [address] Feb, [facility] [place] [facility] [address] [id number] [place] [address] 30 Feb, 2014 [facility] [place] [facility] [address] [id number] [place] [address] Feb, [facility] [place] [facility] [address] [id number] [place] [address] Feb, [facility] [place] [facility] [address] [id number] [place] [address] Feb, [facility] [place] [facility] [address] [id number] [place] [address]- [address] Feb, [facility] [place] [facility] [address] [id number] [place] [address] Feb, [facility] [place] [facility] [address] [id number] [place] [address] Feb, [facility] [place] [facility] [address] [id number] [place] [address] Feb, [facility] [place] [facility] [address] [id number] [address] Feb, [facility] [place] [facility] [address] [id number] [place] [address]- [address] 22 Jan, 2014 [facility] [place] [facility] [address] [id number] [place] [address]- [address] 22 Jan, 2013 [facility] [place] [facility] [address] [id number] [place] [address] 16 Jan, 2013 [facility] [place] [facility] [address] [id number] [place] [address]- [address] 16 Jan, 2013 [facility] [place] [facility] [address] [id number] [place] [address]- [address] 12 Jan, 2014 [facility] [place] [facility] [address] [id number] [place] [address] 04 Jan, 2013 [facility] [place] [facility] [address] [id number] [place] [address] 04 Jan, 2013 [facility] [place] [facility] [address] [id number] [place] [address]- [address] Dec, [facility] [place] [facility] [address] [id number] [place] [address] Dec, [facility] [place] [facility] [address] [id number] [place] [address]- [address] Dec, [facility] [place] [facility] [address] [id number] [place] [address]- [address] Dec, [facility] [place] [facility] [address] [id number] [place] [address] Dec, [facility] [place] [facility] [address] [id number] [place] [address]- [address] Dec, [facility] [place] [facility] [address] [id number] [place] [address]- [address] Dec, [facility] [place] [facility] [address] [id number] [place] [address]- [address] Dec, [facility] [facility] [address] [id number] [place] [address]- [address] Oct, [facility] [place] [facility] [address] [id number] [place] [address]- [address] Oct, [facility] [facility] [address] [id number] [place] [address] September, [facility] [place] [facility] [address] [id number] [place] [address]- [address] September, [facility] [place] [facility] [address] [id number] [place] [address]- [address] September, [facility] [place] [facility] [address] [id number] [place] [address]- [address] September, [facility] [place] [facility] [address] [id number] [place] [address]- [address] September, [facility] [place] [facility] [address] [id number] [place] [address]- [address] September, [facility] [place] [facility] [address] [id number] [place] [address]- [address] September, [facility] [place] [facility] [address] [id number] [place] [address]- [address] Aug, [facility] [place] [facility] [address] [id number] [place] [address]- [address] Aug, [facility] [place] [facility] [address] [id number] [place] [address]- [address] Jul, [facility] [place] [facility] [address] [id number] [place] [address]- [address] Jul, [facility] [place] [facility] [address] [id number] [place] [address]- [address] Jul, [facility] [place] [facility] [address] [id number] [place] [address]- [address] Jul, [facility] [place] [facility] [address] [id number] [place] [address]- [address] Jul, [facility] [place] [facility] [address] [id number] [place] [address]- [address] Jul, [facility] [place] [facility] [address] [id number] [place] [address]- [address] Jul, [facility] [place] [facility] [address] [id number] [place] [address]- [address] Jul, [facility] [place] [facility] [address] [id number] [place] [address]- [address] May, [facility] [place] [facility] [address] [id number] [place] [address]- [address] May, [facility] [place] [facility] [address] [id number] [place] [address]- [address] May, [facility] [place] [facility] [address] [id number] [place] [address] May, [facility] [place] [facility] [address] [id number] [place] [address] 18 Apr, 2013 [facility] [place] [facility] [address] [id number] [place] [address] Mar, [facility] [place] [facility] [address] [id number] [place] [address] Mar, [facility] [place] [facility] [address] [id number] [place] [address] Mar, [facility] [place] [facility] [address] [id number] [place] [address] Mar, [facility] [place] [facility] [address] [id number] [place] [address] Mar, [facility] [place] [facility] [address] [id number] [place] [address] Mar, [facility] [place] [facility] [address] [id number] [place] [address] Mar, [facility] [place] [facility] [address] [id number] [place] [address] Mar, [facility] [place] [facility] [address] [id number] [place] [address]- [address] Mar, [facility] [place] [facility] [address] [facility] [id number] [place] [address] Mar, [facility] [place] [facility] [address] [id number] [place] [address] Mar, [facility] [place] [facility] [address] [id number] [address] 04 Mar, 2013 [facility] [place] [facility] [address] [id number] [place] [address]- [address] 15 Feb, 2013 [facility] [place] [facility] [address] [id number] [place] [address]- [address] 15 Feb, 2013 [facility] [place] [facility] [address] [id number] [place] [address] Feb, [facility] [place] [facility] [address] [id number] [place] [address]- [address]248 Feb, [facility] [address] [id number] [place] [address]- 4278 Feb, [facility] [address] [id number] [place] [address] Jan, [facility] [place] [facility] [address] [id number] [place] [address]- [address] Dec, [facility] [address] [id number] [place] [address]- [address] Dec, [facility] [address] [id number] [place] [address]- [address] Dec, [facility] [address] [id number] [place] [address]- [address]95 Nov, [facility] [address] [id number] [place] [address]- [address]99 Nov, [facility] [address] [id number] [place] [address]- [address] Nov, [facility] [address] [id number] [place] [address]- 1677 Oct, [facility] [place] [facility] [address] [id number] [place] [address] Oct, [facility] [place] [facility] [address] [id number] [place] [address]- [address] Oct, [facility] [place] [facility] [address] [id number] [place] [address]- [address] September, [facility] [place] [facility] [address] [id number] [place] [address]- [address]46 September, [facility] [place] [facility] [address] [id number] [place] [address]- [address]42 September, [facility] [place] [facility] [address] [id number] [place] [address]- 7787 September, [facility] [address] [id number] [place] [address]- [address] September, [facility] [address] [id number] [place] [address]- 2627 Aug, [facility] [address] [id number] [place] [address]- [address] Aug, [facility] [address] [id number] [place] [address]- [address] Aug, [facility] [address] [id number] [place] [address]- [address] Jul, [facility] [address] [id number] [place] [address]- 89[address] Jul, [facility] [address] [id number] [place] [address]- 1412 Jul, [facility] [address] [id number] [place] [address]- 1589 Jul, [facility] [address] [id number] [place] [address]- 3567 Jul, [facility] [address] [id number] [place] [address]- [address] Jul, [facility] [address] [id number] [place] [address]- 4092 Jul, [facility] [address] [id number] [place] [address]- [address]66 May, [facility] [place] [facility] [address] [id number] [place] [address] May, [facility] [place] [facility] [address] [id number] [place] [address] May, [facility] [address] [id number] [place] [address]- 5727 Apr, [facility] [place] [facility] [address] [id number] [place] [address]- [address] Apr, [facility] [place] [facility] [address] [id number] [place] [address]- 7076 Apr, [facility] [place] [facility] [address] [id number] [place] [address]- 2546 Apr, [facility] [place] [facility] [address] [id number] [place] [address]- 7876 Apr, [facility] [place] [facility] [address] [id number] [place] [address]- 3273 Mar, [facility] [place] [facility] [address] [id number] [place] [address]- 3[address] Mar, [facility] [place] [facility] [address] [id number] [place] [address]- 5566 Mar, [facility] [place] [facility] [address] [id number] [place] [address]- 8109 Mar, [facility] [place] [facility] [address] [id number] [place] [address]- 0189 Feb, [facility] [place] [facility] [address] [id number] [place] [address]- 6915 Feb, [facility] [place] [facility] [address] [facility] [id number] [place] [address]- [address]856 Feb, [facility] [place] [facility] [address] [id number] [place] [address]- 7586 Feb, [facility] [place] [facility] [address] [id number] [place] [address] 2547 Feb, [facility] [place] [facility] [address] [id number] [place] [address]- 3996 Jan, [facility] [place] [facility] [address] [id number] [place] [address]- 2546 Dec, [facility] [place] [facility] [address] [id number] [place] [address]- 9131 Dec, [facility] [place] [facility] [address] [id number] [place] [address]- 3461 Dec, [facility] [place] [facility] [address] [id number] [place] [address]- 6956 Nov, [facility] [place] [facility] [address] [id number] [place] [address]- 1016 Nov, [facility] [place] [facility] [address] [id number] [place] [address]- 8203 Nov, [facility] [place] [facility] [address] [id number] [place] [address]- 9648 Oct, [facility] [place] [facility] [address] [id number] [place] [address]- 3557 Oct, [facility] [place] [facility] [address] [id number] [place] [address]- 2189 Oct, [facility] [place] [facility] [address] [id number] [place] [address]- 7169 Oct, [facility] [place] [facility] [address] [id number] [place] [address]- 1480 September, [facility] [place] [facility] [address] [id number] [place] [address]- 8241 September, [facility] [place] [facility] [address] [id number] [place] [address]- 3612 30 Aug, 2011 [facility] [place] [facility] [address] [id number] [place] [address]- [address]777 23 Aug, 2011 [facility] [place] [facility] [address] [id number] [place] [address]- 8461 10 Aug, 2011 [facility] [place] [facility] [address] [id number] [place] [address]- 9570 09 Aug, 2011 [facility] [place] [facility] [address] [id number] [place] [address]- 3705 Aug, [facility] [place] [facility] [address] [id number] [place] [address]- 1519 05 Aug, 2011 [facility] [address] [id number] [place] [address]- 6268 Aug, [facility] [place] [facility] [address] [id number] [place] [address]- 7676 Jul, [facility] [place] [facility] [address] [id number] [place] [address]- 7445 Jul, [facility] [place] [facility] [address] [id number] [place] [address]- 9821 Jul, [facility] [place] [facility] [address] [id number] [place] [address]- 4210 May, [facility] [place] [facility] [address] [id number] [place] [address]- 6543 May, [facility] [place] [facility] [address] [id number] [place] [address]- 5033 May, [facility] [place] [facility] [address] [id number] [place] [address]- 7318 Apr, [facility] [place] [facility] [address] [id number] [place] [address]- 5555 Apr, [facility] [place] [facility] [address] [facility] [id number] [place] [address]- 0714 Mar, [facility] [place] [facility] [address] [id number] [place] [address]- 8423 Mar, [facility] [place] [facility] [address] [id number] [place] [address]- 1496 Mar, [facility] [place] [facility] [address] [id number] [place] [address]- 7719 Mar, [facility] [place] [facility] [address] [id number] [place] [address]- 3499 Mar, [facility] [place] [facility] [address] [id number] [place] [address]- [address] Mar, [facility] [place] [address] [facility] [id number] [place] [address]- 4946 Feb, [facility] [place] [address] [facility] [id number] [place] [address]- [address] Feb, [facility] [place] [address] [facility] [id number] [place] [address]- 6[address] Feb, IMMUNIZATIONS No Known Immunizations SOCIAL HISTORY [...]
--- OUTSIDE RECORDS SUMMARY | 2018-05-16 07:13 | XMS REPORT ---
Author Author FERNY SILVERIO Organization [facility] Address [address] [place] [address] Care Team Providers Care Parts Room Assistant Name Role Phone FERNY SILVERIO Unavailable PROBLEMS Type Condition ICD9-CM Code URQ43-IK Code Onset Dates Condition Status SNOMED Code Problem Hypoxia R09.02 Active 968179488 Problem Port catheter in place Z95.828 Active 284212616 Problem Anxiety F41.9 Active 56213194 Problem Type 2 diabetes mellitus with diabetic peripheral angiopathy without gangrene E11.51 Active 968331658 Problem Pressure ulcer of other site, stage 3 L89.893 Active 806197750 Problem Lumbar radiculopathy, chronic M54.16 Active 074442511 Problem PAD (peripheral artery disease) I73.9 Active 735348495 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 648661532 Problem Recurrent major depressive disorder, in full remission F33.42 Active 903720795 Problem Diabetes E11.9 Active 71512222 Problem Hypertension I10 Active 26364529 Problem Back pain M54.9 Active 063715501 Problem Insulin long-term use Z79.4 Active 315462930 Problem COPD (chronic obstructive pulmonary disease) J44.9 Active 93557394 ALLERGIES No Information ENCOUNTERS Encounter Location Date Diagnosis [place] [id number] [place] [address] 81289- 1602 Oct, Back pain M54.9 and Anxiety F41.9 [place] [address] [place] [id number] [place] [address] 89202- 0703 September, Anxiety F41.9 and Back pain M54.9 [place] [id number] [place] [address] 77805- 3154 September, Diabetes E11.9 ; Hypertension I10 ; COPD (chronic obstructive pulmonary disease) J44.9 and Lumbar radiculopathy, chronic M54.16 [facility] [id number] [place] [address] 87838- 5178 September, Anxiety F41.9 [facility] [id number] [place] [address] 43875- 3673 Aug, [facility] [id number] [place] [address] 48940- 2145 Aug, [place] [address] [id number] [place] [address] 54092- 0755 Aug, Anxiety F41.9 and Back pain M54.9 [place] [address] 44174- 6889 Aug, Medicare annual wellness visit, initial Z00.00 [...] and 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 [place] [address] [place] [id number] [place] [address] 78790- 8103 Jul, Back pain M54.9 [place] [id number] [place] [address] 66512- 7836 Jul, [facility] [id number] [place] [address] 01204- 1636 Jul, Anxiety F41.9 and Back pain M54.9 [place] [address] [place] [id number] [place] [address] 76643- 8550 Jul, Diabetes E11.9 [place] [address] [id number] [place] [address] 74817- 8213 May, [facility] [id number] [place] [address] 20561- 5551 May, Diabetes E11.9 ; Anxiety F41.9 ; Back pain M54.9 and COPD ( chronic obstructive pulmonary disease) J44.9 [facility] [id number] [place] [address] 49231- 6883 May, Back pain M54.9 [facility] [id number] [place] [address] 60559- 0720 May, [facility] [address] 96468- 8178 Apr, Back pain M54.9 [facility] [address] 91263- 6342 Mar, Back pain M54.9 [facility] [id number] [place] [address] 92735- 7119 Mar, [facility] [address] 75935- 2985 Mar, [facility] [id number] [place] [address] 55509- 0718 14 Mar, 2017 Radiculopathy of lumbar region M54.16 [place] [address] [place] [id number] [place] [address] 26249- 6501 Mar, [facility] [address] [id number] [place] [address] 45660- 2621 07 Mar, 2017 Encounter for immunization Z23 and Lumbar radiculopathy, chronic M54.16 [facility] [id number] [place] [address] 61920- 4684 Mar, Back pain M54.9 and Anxiety F41.9 [facility] [id number] [place] [address] 33920 -5657 10 Feb, 2017 Acute bilateral low back pain with left-sided sciatica M54.42 and Acute bilateral low back pain with right-sided sciatica M54.41 [facility] [id number] [place] [address] 45443- 7498 Feb, [facility] [id number] [place] [address] 79056- 7518 Feb, Back pain M54.9 [facility] [id number] [place] [address] 14721- 8819 05 Jan, 2017 Back pain M54.9 and Anxiety F41.9 [facility] [id number] [place] [address] 26437- 2839 05 Jan, 2017 Diabetes E11.9 [facility] [address] [id number] [place] [address] 98251- 7250 Dec, Diabetes E11.9 ; Back pain M54.9 ; Anxiety F41.9 and Insulin long-term use Z79.4 [facility] [address] [place] [id number] [place] [address] 27155- 5790 Dec, Anxiety F41.9 [facility] [address] [place] [id number] [place] [address] 44553- 1990 Dec, Back pain M54.9 [facility] [address] [id number] [place] [address] 59289- 4208 Nov, Back pain M54.9 [facility] [address] [place] [id number] [place] [address] 05641- 6188 Oct, Back pain M54.9 and Anxiety F41.9 [facility] [address] [place] [address] [id number] [place] [address] 64711- 9565 September, Back pain M54.9 [facility] [id number] [place] [address] 47378- 5830 September, Back pain M54.9 and Anxiety F41.9 [facility] [id number] [place] [address] 92580- 4245 Aug, Diabetes E11.9 ; Anxiety F41.9 ; Back pain M54.9 and PAD ( peripheral artery disease) I73.9 [facility] [address] [id number] [place] [address] 71434- 4946 19 Aug, 2016 Anxiety F41.9 [facility] [address] 21533- 3990 14 Aug, 2016 Back pain M54.9 [facility] [address] [id number] [place] [address] 79859- 8626 Jul, Back pain M54.9 [facility] [address] 87988- 4548 Jul, Back pain M54.9 [facility] [address] 28050- 2196 Jul, Back pain M54.9 [facility] [address] [place] [id number] [place] [address] 25976- 1190 16 Jul, 2016 Dorsalgia M54.9 [facility] [address] 83576- 5759 Jul, [facility] [address] 66790- 7219 May, Back pain M54.9 [facility] [address] 88478- 3908 May, Diabetes E11.9 ; Anxiety F41.9 ; Port catheter in place Z95.828 ; Encounter for immunization Z23 and Insulin long-term use Z79.4 [facility] [address] [place] [id number] [place] [address] 50102- 2090 Apr, Back pain M54.9 [facility] [address] [place] [id number] [place] [address] 35761- 9166 Apr, Back pain M54.9 [facility] [address] [id number] [place] [address] 28613- 3161 Apr, [facility] [address] [id number] [place] [address] 37370- 4522 Apr, Back pain M54.9 [facility] [address] [address]- 1818 Mar, COPD (chronic obstructive pulmonary disease) J44.9 [facility] [address] [place] [id number] [place] [address] 71997- 6596 Feb, [facility] [id number] [place] [address] 33702- 8106 30 Jan, 2016 [facility] [id number] [place] [address] 32592- 0422 Jan, [facility] [id number] [place] [address] 76856- 8680 Jan, [facility] [id number] [place] [address] 30631- 9324 Jan, [facility] [id number] [place] [address] 19383- 8999 Dec, Diabetes E11.9 ; Hypoxia R09.02 and Back pain M54.9 [facility] [id number] [place] [address] 19263- 9969 Dec, [facility] [id number] [place] [address] 74833- 1241 Nov, [facility] [id number] [place] [address] 79095- 3652 Oct, Anxiety F41.9 [facility] [id number] [place] [address] 47688- 1277 Oct, Back pain M54.9 [facility] [id number] [place] [address] 56763- 9489 September, Back pain M54.9 [facility] [id number] [place] [address] 93962- 4114 September, Diabetes E11.9 [facility] [id number] [place] [address] 66276- 5662 September, [facility] [id number] [place] [address] 13597- 9901 September, Diabetes E11.9 ; Insulin long-term use Z79.4 and Back pain M54.9 [facility] [address] [id number] [place] [address] 50268- 5553 Aug, Back pain M54.9 [facility] [address] [id number] [place] [address] 94206- 6566 Aug, Back pain M54.9 ; Anxiety F41.9 and Arthropathy, unspecified M12.9 [facility] [id number] [place] [address] 76721- 3243 Jul, Back pain M54.9 [facility] [id number] [place] [address] 83637- 3007 Jul, Anxiety F41.9 [facility] [address] [id number] [place] [address] 03023- 5749 Jul, Back pain M54.9 [facility] [id number] [place] [address] 71902- 5844 Jul, [facility] [id number] [place] [address] 92574- 4900 Jul, [facility] [address] [id number] [place] [address] 40873- 4820 May, Back pain M54.9 ; Diabetes E11.9 ; Insulin long-term use Z79.4 ; COPD (chronic obstructive pulmonary disease) J44.9 and Hypertension I10 [facility] [id number] [place] [address] 98189- 0037 May, Chronic pain G89.29 [facility] [address] [id number] [place] [address] 39716- 7997 Apr, [facility] [id number] [place] [address] 81144- 9891 Apr, [facility] [address] [address]- 5142 Mar, [facility] [id number] [address]- 2872 Mar, Encounter for immunization Z23 and Diabetes E11.9 [facility] [address] [place] [address]- 9939 Feb, [facility] [id number] [place] [address] 54550- 9004 Feb, [facility] [id number] [place] [address] 68091- 9352 Jan, [facility] [id number] [place] [address] 47433- 8695 Jan, [facility] [id number] [place] [address] 94467- 8857 Dec, [facility] [id number] [address]- 7722 Dec, [facility] [id number] [place] [address] 94965- 7593 Dec, Unspecified arthropathy, site unspecified 716.90 and Diabetes mellitus type 2, uncontrolled 250.02 [facility] [address] [place] [address]- 1609 Dec, [facility] [address] [place] [address]- 3982 Nov, [facility] [address] [place] [address]- 3906 Oct, [facility] [id number] [address]- 0853 September, [facility] [address] [place] [address]- 3383 September, [facility] [id number] [place] [address] 15230- 2519 18 Sep, 2014 [facility] [place] [facility] [address] [id number] [place] [address]- 8057 11 Sep, 2014 [facility] [place] [facility] [address] [id number] [place] [address]- 1553 14 Aug, 2014 [facility] [place] [facility] [address] [id number] [place] [address]- 1001 13 Aug, 2014 [facility] [place] [facility] [address] [id number] [place] [address]- 7725 18 Jul, 2014 [facility] [place] [facility] [address] [id number] [place] [address]- 9868 18 Jul, 2014 [facility] [place] [facility] [address] [id number] [place] [address]- 2456 16 Jul, 2014 [facility] [place] [facility] [address] [id number] [place] [address]- 5594 16 Jul, 2014 [facility] [place] [facility] [address] [id number] [place] [address]- 5639 16 Jul, 2014 [facility] [place] [facility] [address] [id number] [place] [address]- 7102 16 Jul, 2014 [facility] [place] [facility] [address] [id number] [place] [address]- 6617 16 Jul, 2014 [facility] [place] [facility] [address] [id number] [place] [address]- 7372 16 Jul, 2014 [facility] [place] [facility] [address] [id number], [place] [address]- 1508 16 Jul, 2014 [facility] [place] [facility] [address] [id number] [place] [address]- 3763 13 Jul, 2014 [facility] [place] [facility] [address] [id number] [place] [address]- 4773 13 Jul, 2014 [facility] [place] [facility] [address] [id number] [place] [address]- 6057 09 Jul, 2014 [facility] [place] [facility] [address] [facility] [id number] [place] [address]- 2157 09 Jul, 2014 [facility] [place] [facility] [address] [id number] [place] [address]- 5326 17 Jul, 2014 [facility] [place] [facility] [address] [id number] [place] [address]- 0266 17 Jul, 2014 [facility] [place] [facility] [address] [id number] [place] [address]- 5993 16 Jul, 2014 [facility] [place] [facility] [address] [id number] [place] [address]- 0336 16 Jul, 2014 [facility] [place] [facility] [address] [id number] [place] [address]- 9582 16 Jul, 2014 [facility] [place] [facility] [address] [facility] [id number] [place] [address]- 1542 16 Jul, 2014 [facility] [place] [facility] [address] [facility] [id number] [place] [address]- 4463 16 Jul, 2014 [facility] [place] [facility] [address] [facility] [id number] [place] [address]- 6583 16 Jul, 2014 [facility] [place] [facility] [address] [facility] [id number] [place] [address]- 0610 16 Jul, 2014 [facility] [place] [facility] [address] [facility] [id number], [place] [address]- 0920 16 Jul, 2014 [facility] [place] [facility] [address] [facility] [id number], [place] [address]- 2473 16 Jul, 2014 [facility] [place] [facility] [address] [facility] [id number] [place] [address]- 8725 16 Jul, 2014 [facility] [place] [facility] [address] [id number] [place] [address]- 3651 16 Jul, 2014 [facility] [place] [facility] [address] [facility] [id number], [place] [address]- 3552 16 Jul, 2014 [facility] [place] [facility] [address] [facility] [id number], [place] [address]- 7094 Jul, [facility] [address] [id number] [place] [address]- 7626 Jul, [facility] [place] [facility] [address] [id number] [place] [address]- 6972 May, [facility] [place] [facility] [address] [id number] [place] [address]- 9691 May, [facility] [place] [facility] [address] [id number] [place] [address]- 4305 May, [facility] [place] [facility] [address] [id number] [place] [address]- 0321 May, [facility] [place] [facility] [address] [id number] [place] [address]- 7428 May, [facility] [address] [id number] [place] [address]- 3967 May, [facility] [place] [facility] [address] [id number] [place] [address]- 9524 May, [facility] [place] [facility] [address] [id number] [place] [address]- 8323 May, [facility] [place] [facility] [address] [id number] [place] [address]- 5681 May, [facility] [place] [facility] [address] [id number] [place] [address]- 3469 May, [facility] [place] [facility] [address] [id number] [place] [address]- 3072 Apr, [facility] [place] [facility] [address] [id number] [place] [address]- 8378 Apr, [facility] [place] [facility] [address] [id number] [place] [address]- 2792 Apr, [facility] [place] [facility] [address] [id number] [place] [address]- 0849 Apr, [facility] [place] [facility] [address] [id number] [place] [address]- 7034 Apr, [facility] [place] [facility] [address] [id number] [place] [address]- 5549 Apr, [facility] [place] [facility] [address] [id number] [place] [address]- 8286 Mar, [facility] [place] [facility] [address] [id number] [place] [address]- 0017 Mar, [facility] [place] [facility] [address] [id number] [place] [address]- 5185 Mar, [facility] [place] [facility] [address] [id number] [place] [address]- 6049 Mar, [facility] [place] [facility] [address] [id number] [place] [address]- 6021 Mar, [facility] [place] [facility] [address] [id number] [place] [address]- 6388 Mar, [facility] [place] [facility] [address] [id number] [place] [address]- 8111 Mar, [facility] [place] [facility] [address] [id number] [place] [address]- 4502 Mar, [facility] [place] [facility] [address] [id number] [place] [address]- 1981 Mar, [facility] [place] [facility] [address] [id number] [place] [address]- 5722 Mar, [facility] [place] [facility] [address] [id number] [place] [address]- 0294 Mar, [facility] [place] [facility] [address] [id number] [place] [address]- 6779 Feb, [facility] [place] [facility] [address] [id number] [place] [address] Feb, [facility] [place] [facility] [address] [id number] [place] [address] 15 Feb, 2014 [facility] [place] [facility] [address] [id number] [place] [address] 15 Feb, 2014 [facility] [place] [facility] [address] [id number] [place] [address] Feb, [facility] [place] [facility] [address] [id number] [place] [address] Feb, [facility] [place] [facility] [address] [id number] [place] [address] Feb, [facility] [place] [facility] [address] [id number] [place] [address] Feb, [facility] [place] [facility] [address] [id number] [place] [address] Feb, [facility] [place] [facility] [address] [id number] [place] [address] Feb, [facility] [place] [facility] [address] [id number], [place] [address] Jan, [facility] [place] [facility] [address] [id number] [place] [address] 22 Jan, 2014 [facility] [place] [facility] [address] [id number] [place] [address]- [address] 16 Jan, 2014 [facility] [place] [facility] [address] [id number], [place] [address] 16 Jan, 2014 [facility] [place] [facility] [address] [id number], [place] [address] 12 Jan, 2014 [facility] [place] [facility] [address] [id number] [place] [address] 04 Jan, 2014 [facility] [place] [facility] [address] [id number], [place] [address] Jan, [facility] [place] [facility] [address] [id number], [place] [address] Dec, [facility] [place] [facility] [address] [id number] [place] [address] Dec, [facility] [place] [facility] [address] [id number] [place] [address] Dec, [facility] [place] [facility] [address] [id number] [place] [address] Dec, [facility] [place] [facility] [address] [id number] [place] [address] Dec, [facility] [place] [facility] [address] [id number] [place] [address] Dec, [facility] [place] [facility] [address] [id number] [place] [address] Dec, [facility] [place] [facility] [address] [id number] [place] [address]- [address] Dec, [facility] [place] [facility] [address] [id number] [place] [address] Oct, [facility] [place] [facility] [address] [id number] [place] [address] Oct, [facility] [place] [facility] [address] [id number] [place] [address] September, [facility] [place] [facility] [address] [id number] [place] [address] September, [facility] [place] [facility] [address] [id number] [place] [address] September, [facility] [place] [facility] [address] [id number] [place] [address]- [address] September, [facility] [place] [facility] [address] [id number] [place] [address]- [address] September, [facility] [place] [facility] [address] [id number] [place] [address]- [address] September, [facility] [place] [facility] [address] [id number] [place] [address] September, [facility] [place] [facility] [address] [id number] [place] [address] Aug, [facility] [place] [facility] [address] [id number] [place] [address]- [address] Aug, [facility] [place] [facility] [address] [id number] [place] [address] Jul, [facility] [place] [facility] [address] [id number] [place] [address] Jul, [facility] [place] [facility] [address] [id number] [place] [address] Jul, [facility] [place] [facility] [address] [id number] [place] [address] Jul, [facility] [place] [facility] [address] [id number] [place] [address] Jul, [facility] [place] [facility] [address] [id number] [place] [address] Jul, [facility] [place] [facility] [address] [id number] [place] [address] Jul, [facility] [place] [facility] [address] [id number] [place] [address] Jul, [facility] [place] [facility] [address] [id number] [place] [address] May, [facility] [place] [facility] [address] [id number] [place] [address] May, [facility] [place] [facility] [address] [id number] [place] [address] May, [facility] [place] [facility] [address] [id number] [place] [address] May, [facility] [place] [facility] [address] [id number] [place] [address] Apr, [facility] [place] [facility] [address] [id number] [place] [address] 20 Mar, 2013 [facility] [place] [facility] [address] [id number] [place] [address] Mar, [facility] [place] [facility] [address] [id number] [place] [address] Mar, [facility] [place] [facility] [address] [id number] [place] [address] Mar, [facility] [place] [facility] [address] [id number] [place] [address] Mar, [facility] [place] [facility] [address] [id number] [place] [address] Mar, [facility] [place] [facility] [address] [id number] [place] [address] Mar, [facility] [place] [facility] [address] [id number] [place] [address] Mar, [facility] [place] [facility] [address] [id number] [place] [address] Mar, [facility] [place] [facility] [address] [id number] [place] [address] Mar, [facility] [place] [facility] [address] [facility] [id number] [place] [address] Mar, [facility] [place] [facility] [address] [id number] [place] [address] 04 Mar, 2013 [facility] [place] [facility] [address] [id number], [place] [address] 15 Feb, 2013 [facility] [place] [facility] [address] [id number] [place] [address] 15 Feb, 2013 [facility] [place] [facility] [address] [id number] [place] [address] Feb, [facility] [place] [facility] [address] [id number] [place] [address] Feb, [facility] [place] [facility] [address] [id number] [place] [address] 254 Feb, [facility] [address] [id number] [place] [address] Jan, [facility] [address] [id number] [place] [address] Dec, [facility] [address] [id number] [place] [address]- [address]46 Dec, [facility] [address] [id number] [place] [address] Dec, [facility] [address] [id number] [place] [address] 95[address] Nov, [facility] [address] [id number] [place] [address] Nov, [facility] [address] [id number] [place] [address]24 Nov, [facility] [address] [id number] [place] [address] 8533 Oct, [facility] [address] [id number] [place] [address] 113[address] Oct, [facility] [address] [id number] [place] [address]46 Oct, [facility] [address] [id number] [place] [address]- [address]606 September, [facility] [place] [facility] [address] [id number] [place] [address]- [address]298 September, [facility] [place] [facility] [address] [id number] [place] [address] 1776 September, [facility] [place] [facility] [address] [id number] [place] [address]- [address]44 September, [facility] [place] [facility] [address] [id number], [place] [address] September, [facility] [address] [id number] [place] [address] 7868 Aug, [facility] [address] [id number] [place] [address] Aug, [facility] [address] [id number] [place] [address]65 Aug, [facility] [address] [id number] [place] [address] 8044 Jul, [facility] [address] [id number] [place] [address] 6714 Jul, [facility] [address] [id number] [place] [address] Jul, [facility] [address] [id number] [place] [address] 7[address] Jul, [facility] [address] [id number] [place] [address]- [address] Jul, [facility] [address] [id number] [place] [address] Jul, [facility] [address] [id number] [place] [address]100 Jul, [facility] [address] [id number], [place] [address] May, [facility] [address] [id number] [place] [address]64 May, [facility] [place] [facility] [address] [id number] [place] [address] 2809 May, [facility] [place] [facility] [address] [id number] [place] [address] Apr, [facility] [address] [id number] [place] [address] Apr, [facility] [place] [facility] [address] [id number] [place] [address]- 2546 Apr, [facility] [place] [facility] [address] [id number] [place] [address]- 7626 Apr, [facility] [place] [facility] [address] [id number] [place] [address]- 2546 Apr, [facility] [place] [facility] [address] [id number] [place] [address]- 2546 Mar, [facility] [place] [facility] [address] [id number] [place] [address]- 2546 Mar, [facility] [place] [facility] [address] [id number] [place] [address]- [address] Mar, [facility] [place] [facility] [address] [id number] [place] [address]- 2546 Mar, [facility] [place] [facility] [address] [id number] [place] [address]- 2546 Feb, [facility] [place] [facility] [address] [id number] [place] [address]- 7865 Feb, [facility] [place] [facility] [address] [id number] [place] [address]- 0986 Feb, [facility] [place] [facility] [address] [id number] [place] [address]- 2546 Feb, [facility] [place] [facility] [address] [id number] [place] [address]- 2546 Feb, [facility] [place] [facility] [address] [id number] [place] [address]46 Jan, [facility] [place] [facility] [address] [id number] [place] [address]- 2546 Dec, [facility] [place] [facility] [address] [id number] [place] [address]- [address]46 Dec, [facility] [place] [facility] [address] [id number] [place] [address] 1118 Dec, [facility] [place] [facility] [address] [id number] [place] [address]- [address]40 Nov, [facility] [place] [facility] [address] [id number] [place] [address]- 0278 Nov, [facility] [place] [facility] [address] [id number] [place] [address]- 1721 Nov, [facility] [place] [facility] [address] [id number] [place] [address]- 7725 Oct, [facility] [place] [facility] [address] [id number] [place] [address]- 8547 Oct, [facility] [place] [facility] [address] [id number] [place] [address]- 8486 Oct, [facility] [place] [facility] [address] [id number] [place] [address]- 0842 Oct, [facility] [place] [facility] [address] [id number] [place] [address]- 5085 September, [facility] [place] [facility] [address] [id number] [place] [address]- 2679 September, [facility] [place] [facility] [address] [id number] [place] [address]- [address]80 30 Aug, 2011 [facility] [place] [facility] [address] [id number] [place] [address]- 8485 Aug, [facility] [place] [facility] [address] [id number] [place] [address]- 3034 Aug, [facility] [place] [facility] [address] [id number] [place] [address]- 9917 Aug, [facility] [place] [facility] [address] [id number] [place] [address]- 5810 06 Aug, 2011 [facility] [place] [facility] [address] [id number] [place] [address]- 3052 Aug, [facility] [place] [facility] [address] [id number] [place] [address]- 7359 05 Aug, 2011 [facility] [place] [facility] [address] [id number] [place] [address]- 6397 Jul, [facility] [place] [facility] [address] [id number] [place] [address]- 7508 Jul, [facility] [place] [facility] [address] [id number] [place] [address]- 8114 Jul, [facility] [place] [facility] [address] [id number] [place] [address]- 1357 May, [facility] [place] [facility] [address] [id number] [place] [address]- 8708 May, [facility] [place] [facility] [address] [id number] [place] [address] May, [facility] [place] [facility] [address] [id number] [place] [address]- 8315 Apr, [facility] [place] [facility] [address] [id number] [place] [address]- 2264 Apr, [facility] [place] [facility] [address] [id number] [place] [address]- 2917 Mar, [facility] [place] [facility] [address] [facility] [id number] [place] [address]- 2351 Mar, [facility] [place] [facility] [address] [id number] [place] [address]- 1831 Mar, [facility] [place] [facility] [address] [id number] [place] [address]- 8230 Mar, [facility] [place] [facility] [address] [id number] [place] [address]- 5642 Mar, [facility] [place] [facility] [address] [facility] [id number] [place] [address]- 2920 Mar, [facility] [place] [facility] [address] [id number], [place] [address] Feb, [facility] [address] [facility] [id number] [place] [address] Feb, [facility] [address] [facility] [id number][place] [id number] Feb, IMMUNIZATIONS No Known Immunizations SOCIAL HISTORY Never Assessed REASON FOR VISIT Controlled meds x' 4-- 05/28 PLAN OF CARE VITAL SIGNS MEDICATIONS Medication Instructions Dosage Frequency Start Date End Date Duration Status MS Contin 30 MG Orally every 8 hours 1 tablet 8h Apr, 28 days Active Soma 350 mg Orally Once a day 1 tablet as needed 24h Active Hydrocodone-Acetaminophen 10-325 MG Orally every 6 hrs 1 tablet as needed 6h Apr, 28 days Active Xanax 1 Orally 3 times a day 1 tablet 8h Active RESULTS No Results PROCEDURES No Known [...]
[2018-05-16 07:14] LABS: BASOPHILS % (AUTO) 0 % (0-10); EOSINOPHILS # (AUTO) 0.1 10^3/uL (0.0-0.3); EOSINOPHILS % (AUTO) 1 % (0-10); HEMATOCRIT 38 % (40-54); HEMOGLOBIN 12.3 G/DL (13.3-17.7); LYMPHOCYTES # (AUTO) 1.1 X 10^3 (1.0-4.0); LYMPHOCYTES % (AUTO) 11 % (12-44); MEAN CORPUSCULAR HEMOGLOBIN 31 PG (25-34); MEAN CORPUSCULAR HGB CONC 33 G/DL (32-36); MEAN CORPUSCULAR VOLUME 95 FL (80-99); MEAN PLATELET VOLUME 9.6 FL (7.4-10.4); MONOCYTES % (AUTO) 10 % (0-12); NEUTROPHILS # (AUTO) 7.5 X 10^3 (1.8-7.8); NEUTROPHILS % (AUTO) 78 % (42-75); PLATELET COUNT 233 10^3/uL (130-400); RED BLOOD COUNT 4.01 10^6/uL (4.35-5.85); WHITE BLOOD COUNT 9.6 10^3/uL (4.3-11.0)
[2018-05-16] MEDS ORDERED: RT-ALBUTEROL/IPRATROPIUM 3 ML (DUONEB) VIAL INH ONE (07:15)
--- OUTSIDE RECORDS SUMMARY | 2018-05-16 07:22 | XMS REPORT | Continuity of Care Document ---
Author Author [facility] [place] Address Unknown Phone Unavailable Allergies Active Description Code Type Severity Reaction Onset Reported/Identified Relationship to Patient Clinical Status Yes NKANo Known Allergies NKA Miscellaneous Allergy Unknown N/A 12/21/2005 Yes No Known Drug Allergies [id number] Drug Allergy Mild N/A 10/19/2008 Medications There is no data. Problems Date Dx Coded Attending Type Code Diagnosis Diagnosed By 07/31/2010 250.00 DIABETES MELLITUS TYPE 2 07/31/2010 272.4 HYPERLIPIDEMIA 07/31/2010 356.9 NEUROPATHY 07/31/2010 401.9 Hypertension, Unspecified Essential 07/31/2010 724.2 BACK PAIN, LOWER 07/31/2010 ANGELICA CONLEY DO 250.00 DIABETES MELLITUS TYPE 2 07/31/2010 ANGELICA CONLEY DO 272.4 HYPERLIPIDEMIA 07/31/2010 ANGELICA CONLEY DO 356.9 NEUROPATHY 07/31/2010 ANGELICA CONLEY DO 401.9 Hypertension, Unspecified Essential 07/31/2010 ANGELICA CONLEY DO 724.2 BACK PAIN, LOWER 07/31/2010 FERNY SILVERIO MD 250.00 DIABETES MELLITUS TYPE 2 07/31/2010 FERNY SILVERIO MD 272.4 HYPERLIPIDEMIA 07/31/2010 FERNY SILVERIO MD 356.9 NEUROPATHY 07/31/2010 FERNY SILVERIO MD 401.9 Hypertension, Unspecified Essential 07/31/2010 FERNY SILVERIO MD 724.2 BACK PAIN, LOWER 07/31/2010 FERNY SILVERIO MD 250.00 DIABETES MELLITUS TYPE 2 07/31/2010 FERNY SILVERIO MD 272.4 HYPERLIPIDEMIA 07/31/2010 FERNY SILVERIO MD 356.9 NEUROPATHY 07/31/2010 FERNY SILVERIO MD 401.9 Hypertension, Unspecified Essential 07/31/2010 FERNY SILVERIO MD 724.2 BACK PAIN, LOWER 07/31/2010 250.00 DIABETES MELLITUS TYPE 2 07/31/2010 272.4 HYPERLIPIDEMIA 07/31/2010 356.9 NEUROPATHY 07/31/2010 401.9 Hypertension, Unspecified Essential 07/31/2010 724.2 BACK PAIN, LOWER 07/31/2010 250.00 DIABETES MELLITUS TYPE 2 07/31/2010 272.4 HYPERLIPIDEMIA 07/31/2010 356.9 NEUROPATHY 07/31/2010 401.9 Hypertension, Unspecified Essential 07/31/2010 724.2 BACK PAIN, LOWER 07/31/2010 250.00 DIABETES MELLITUS TYPE 2 07/31/2010 272.4 HYPERLIPIDEMIA 07/31/2010 356.9 NEUROPATHY 07/31/2010 401.9 Hypertension, Unspecified Essential 07/31/2010 724.2 BACK PAIN, LOWER 07/31/2010 250.00 DIABETES MELLITUS TYPE 2 07/31/2010 272.4 HYPERLIPIDEMIA 07/31/2010 356.9 NEUROPATHY 07/31/2010 401.9 Hypertension, Unspecified Essential 07/31/2010 724.2 BACK PAIN, LOWER 07/31/2010 CONLEY DO, ANGELICA K 250.00 DIABETES MELLITUS TYPE 2 07/31/2010 CONLEY DO, ANGELICA K 272.4 HYPERLIPIDEMIA 07/31/2010 CONLEY DO, ANGELICA K 356.9 NEUROPATHY 07/31/2010 CONLEY DO, ANGELICA K 401.9 Hypertension, Unspecified Essential 07/31/2010 CONLEY DO, ANGELICA K 724.2 BACK PAIN, LOWER 07/31/2010 FERNY SILVERIO MD 250.00 DIABETES MELLITUS TYPE 2 07/31/2010 FERNY SILVERIO MD 272.4 HYPERLIPIDEMIA 07/31/2010 FERNY SILVERIO MD 356.9 NEUROPATHY 07/31/2010 FERNY SILVERIO MD 401.9 Hypertension, Unspecified Essential 07/31/2010 FERNY SILVERIO MD 724.2 BACK PAIN, LOWER 07/31/2010 CONLEY DO, ANGELICA K 250.00 DIABETES MELLITUS TYPE 2 07/31/2010 CONLEY DO, ANGELICA K 272.4 HYPERLIPIDEMIA 07/31/2010 CONLEY DO, ANGELICA K 356.9 NEUROPATHY 07/31/2010 CONLEY DO, ANGELICA K 401.9 Hypertension, Unspecified Essential 07/31/2010 CONLEY DO, ANGELICA K 724.2 BACK PAIN, LOWER 07/31/2010 CONLEY DO, ANGELICA K 250.00 DIABETES MELLITUS TYPE 2 07/31/2010 CONLEY DO, ANGELICA K 272.4 HYPERLIPIDEMIA 07/31/2010 CONLEY DO, ANGELICA K 356.9 NEUROPATHY 07/31/2010 CONLEY DO, ANGELICA K 401.9 Hypertension, Unspecified Essential 07/31/2010 CONLEY DO, ANGELICA K 724.2 BACK PAIN, LOWER 07/31/2010 JEAN CLAUDE SCHWARTZ, FERNY 250.00 DIABETES MELLITUS TYPE 2 07/31/2010 JEAN CLAUDE SCHWARTZ, FERNY 272.4 HYPERLIPIDEMIA 07/31/2010 JEAN CLAUDE SCHWARTZ, FERNY 356.9 NEUROPATHY 07/31/2010 JEAN CLAUDE SCHWARTZ, FERNY 401.9 Hypertension, Unspecified Essential 07/31/2010 JEAN CLAUDE SCHWARTZ, FERNY 724.2 BACK PAIN, LOWER 07/31/2010 JEAN CLAUDE SCHWARTZ, FERNY 250.00 DIABETES MELLITUS TYPE 2 07/31/2010 JEAN CLAUDE SCHWARTZ, FERNY 272.4 HYPERLIPIDEMIA 07/31/2010 JEAN CLAUDE SCHWARTZ, FERNY 356.9 NEUROPATHY 07/31/2010 JEAN CLAUDE SCHWARTZ, FERNY 401.9 Hypertension, Unspecified Essential 07/31/2010 JEAN CLAUDE SCHWARTZ, FERNY 724.2 BACK PAIN, LOWER 07/31/2010 JEAN CLAUDE SCHWARTZ, FERNY 250.00 DIABETES MELLITUS TYPE 2 07/31/2010 JEAN CLAUDE SCHWARTZ, FERNY 272.4 HYPERLIPIDEMIA 07/31/2010 JEAN CLAUDE SCHWARTZ, FERNY 356.9 NEUROPATHY 07/31/2010 JEAN CLAUDE SCHWARTZ, FERNY 401.9 Hypertension, Unspecified Essential 07/31/2010 JEAN CLAUDE SCHWARTZ, FERNY 724.2 BACK PAIN, LOWER 07/31/2010 JEAN CLAUDE SCHWARTZ, FERNY 250.00 DIABETES MELLITUS TYPE 2 07/31/2010 JEAN CLAUDE SCHWARTZ, FERNY 272.4 HYPERLIPIDEMIA 07/31/2010 JEAN CLAUDE SCHWARTZ, FERNY 356.9 NEUROPATHY 07/31/2010 JEAN CLAUDE SCHWARTZ, FERNY 401.9 Hypertension, Unspecified Essential 07/31/2010 JEAN CLAUDE SCHWARTZ, FERNY 724.2 BACK PAIN, LOWER 07/31/2010 JEAN CLAUDE SCHWARTZ, FERNY 250.00 DIABETES MELLITUS TYPE 2 07/31/2010 JEAN CLAUDE SCHWARTZ, FERNY 272.4 HYPERLIPIDEMIA 07/31/2010 JEAN CLAUDE SCHWARTZ, FERNY 356.9 NEUROPATHY 07/31/2010 JEAN CLAUDE SCHWARTZ, FERNY 401.9 Hypertension, Unspecified Essential 07/31/2010 JEAN CLAUDE SCHWARTZ, FERNY 724.2 BACK PAIN, LOWER 07/31/2010 JEAN CLAUDE SCHWARTZ, FERNY 250.00 DIABETES MELLITUS TYPE 2 07/31/2010 JEAN CLAUDE SCHWARTZ, FERNY 272.4 HYPERLIPIDEMIA 07/31/2010 JEAN CLAUDE SCHWARTZ, FERNY 356.9 NEUROPATHY 07/31/2010 JEAN CLAUDE SCHWARTZ, FERNY 401.9 Hypertension, Unspecified Essential 07/31/2010 FERNY SILVERIO MD 724.2 BACK PAIN, LOWER 07/31/2010 CONLEY DO, ANGELICA K 250.00 DIABETES MELLITUS TYPE 2 07/31/2010 CONLEY DO, ANGELICA K 272.4 HYPERLIPIDEMIA 07/31/2010 CONLEY DO, ANGELICA K 356.9 NEUROPATHY 07/31/2010 CONLEY DO, ANGELICA K 401.9 Hypertension, Unspecified Essential 07/31/2010 CONLEY DO, ANGELICA K 724.2 BACK PAIN, LOWER 07/31/2010 250.00 DIABETES MELLITUS TYPE 2 07/31/2010 272.4 HYPERLIPIDEMIA 07/31/2010 356.9 NEUROPATHY 07/31/2010 401.9 Hypertension, Unspecified Essential 07/31/2010 724.2 BACK PAIN, LOWER 07/31/2010 FERNY SILVERIO MD 250.00 DIABETES MELLITUS TYPE 2 07/31/2010 FERNY SILVERIO MD 272.4 HYPERLIPIDEMIA 07/31/2010 FERNY SILVERIO MD 356.9 NEUROPATHY 07/31/2010 JEAN CLAUDE SCHWARTZ, FERNY 401.9 Hypertension, Unspecified Essential 07/31/2010 JEAN CLAUDE SCHWARTZ, FERNY 724.2 BACK PAIN, LOWER 07/31/2010 FERNY SILVERIO MD 250.00 DIABETES MELLITUS TYPE 2 07/31/2010 FERNY SILVERIO MD 272.4 HYPERLIPIDEMIA 07/31/2010 FERNY SILVERIO MD 356.9 NEUROPATHY 07/31/2010 FERNY SILVERIO MD 401.9 Hypertension, Unspecified Essential 07/31/2010 FERNY SILVERIO MD 724.2 BACK PAIN, LOWER 07/31/2010 MADL BOAT HOP, YUDITH L 250.00 DIABETES MELLITUS TYPE 2 07/31/2010 MADL BO[employer] H[employer], YUDITH L 272.4 HYPERLIPIDEMIA 07/31/2010 MADL BOAT HOP, YUDITH L 356.9 NEUROPATHY 07/31/2010 MADL BOAT HOP, YUDITH L 401.9 Hypertension, Unspecified Essential 07/31/2010 ELAINEL BOAT HOP, YUDITH L 724.2 BACK PAIN, LOWER 07/31/2010 FERNY SILVERIO MD 250.00 DIABETES MELLITUS TYPE 2 07/31/2010 FERNY SILVERIO MD 272.4 HYPERLIPIDEMIA 07/31/2010 FERNY SILVERIO MD 356.9 NEUROPATHY 07/31/2010 FERNY SILVERIO MD 401.9 Hypertension, Unspecified Essential 07/31/2010 JEAN CLAUDE SCHWARTZ, FERNY 724.2 BACK PAIN, LOWER 08/28/2010 607.84 IMPOTENCE OF ORGANIC ORIGIN 08/28/2010 ANGELICA CONLEY DO K 607.84 IMPOTENCE OF ORGANIC ORIGIN 08/28/2010 FERNY SILVERIO MD 607.84 IMPOTENCE OF ORGANIC ORIGIN 08/28/2010 FERNY SILVERIO MD 607.84 IMPOTENCE OF ORGANIC ORIGIN 08/28/2010 607.84 IMPOTENCE OF ORGANIC ORIGIN 08/28/2010 607.84 IMPOTENCE OF ORGANIC ORIGIN 08/28/2010 607.84 IMPOTENCE OF ORGANIC ORIGIN 08/28/2010 607.84 IMPOTENCE OF ORGANIC ORIGIN 08/28/2010 ANGELICA CONLEY DO 607.84 IMPOTENCE OF ORGANIC ORIGIN 08/28/2010 FERNY SILVERIO MD 607.84 IMPOTENCE OF ORGANIC ORIGIN 08/28/2010 ANGELICA CONLEY DO K 607.84 IMPOTENCE OF ORGANIC ORIGIN 08/28/2010 ANGELICA CONLEY DO K 607.84 IMPOTENCE OF ORGANIC ORIGIN 08/28/2010 FERNY SILVERIO MD 607.84 IMPOTENCE OF ORGANIC ORIGIN 08/28/2010 FERNY SILVERIO MD 607.84 IMPOTENCE OF ORGANIC ORIGIN 08/28/2010 FERNY SILVERIO MD 607.84 IMPOTENCE OF ORGANIC ORIGIN 08/28/2010 FERNY SILVERIO MD 607.84 IMPOTENCE OF ORGANIC ORIGIN 08/28/2010 FERNY SILVERIO MD 607.84 IMPOTENCE OF ORGANIC ORIGIN 08/28/2010 FERNY SILVERIO MD.84 IMPOTENCE OF ORGANIC ORIGIN 08/28/2010 ANGELICA CONLEY DO 607.84 IMPOTENCE OF ORGANIC ORIGIN 08/28/2010 607.84 IMPOTENCE OF ORGANIC ORIGIN 08/28/2010 FERNY SILVERIO MD 607.84 IMPOTENCE OF ORGANIC ORIGIN 08/28/2010 FERNY SILVERIO MD 607.84 IMPOTENCE OF ORGANIC ORIGIN 08/28/2010 YUDITH SHARIF APRN 607.84 IMPOTENCE OF ORGANIC ORIGIN 08/28/2010 FERNY SILVERIO MD 607.84 IMPOTENCE OF ORGANIC ORIGIN 08/29/2010 401.1 ESSENTIAL HYPERTENSION BENIGN 08/29/2010 YAEL REYEZ ANGELICA K 401.1 ESSENTIAL HYPERTENSION BENIGN 08/29/2010 FERNY SILVERIO MD 401.1 ESSENTIAL HYPERTENSION BENIGN 08/29/2010 FERNY SILVERIO MD 401.1 ESSENTIAL HYPERTENSION BENIGN 08/29/2010 401.1 ESSENTIAL HYPERTENSION BENIGN 08/29/2010 401.1 ESSENTIAL HYPERTENSION BENIGN 08/29/2010 401.1 ESSENTIAL HYPERTENSION BENIGN 08/29/2010 401.1 ESSENTIAL HYPERTENSION BENIGN 08/29/2010 YAEL REYEZ ANGELICA K 401.1 ESSENTIAL HYPERTENSION BENIGN 08/29/2010 FERNY SILVERIO MD 401.1 ESSENTIAL HYPERTENSION BENIGN 08/29/2010 YAEL REYEZ ANGELICA K 401.1 ESSENTIAL HYPERTENSION BENIGN 08/29/2010 YAEL REYEZ ANGELICA K 401.1 ESSENTIAL HYPERTENSION BENIGN 08/29/2010 FERNY SILVERIO MD 401.1 ESSENTIAL HYPERTENSION BENIGN 08/29/2010 FERNY SILVERIO MD 401.1 ESSENTIAL HYPERTENSION BENIGN 08/29/2010 FERNY SILVERIO MD 401.1 ESSENTIAL HYPERTENSION BENIGN 08/29/2010 FERNY SILVERIO MD 401.1 ESSENTIAL HYPERTENSION BENIGN 08/29/2010 FERNY SILVERIO MD 401.1 ESSENTIAL HYPERTENSION BENIGN 08/29/2010 FERNY SILVERIO MD 401.1 ESSENTIAL HYPERTENSION BENIGN 08/29/2010 LATA CONLEY DOA K 401.1 ESSENTIAL HYPERTENSION BENIGN 08/29/2010 401.1 ESSENTIAL HYPERTENSION BENIGN 08/29/2010 FERNY SILVERIO MD 401.1 ESSENTIAL HYPERTENSION BENIGN 08/29/2010 FERNY SILVERIO MD 401.1 ESSENTIAL HYPERTENSION BENIGN 08/29/2010 YUDITH SHARIF APRN 401.1 ESSENTIAL HYPERTENSION BENIGN 08/29/2010 FERNY SILVERIO MD 401.1 ESSENTIAL HYPERTENSION BENIGN 10/23/2010 706.3 Seborrhea 10/23/2010 YAEL REYEZ ANGELICA K 706.3 Seborrhea 10/23/2010 FERNY SILVERIO MD 706.3 Seborrhea 10/23/2010 FERNY SILVERIO MD 706.3 Seborrhea 10/23/2010 706.3 Seborrhea 10/23/2010 706.3 Seborrhea 10/23/2010 706.3 Seborrhea 10/23/2010 706.3 Seborrhea 10/23/2010 ANGELICA CONLEY DO 706.3 Seborrhea 10/23/2010 FERNY SILVERIO MD 706.3 Seborrhea 10/23/2010 ANGLEICA CONLEY DO 706.3 Seborrhea 10/23/2010 ANGELICA CONLEY DO 706.3 Seborrhea 10/23/2010 FERNY SILVERIO MD 706.3 Seborrhea 10/23/2010 JEAN CLAUDE SCHWARTZ, FERNY 706.3 Seborrhea 10/23/2010 FERNY SILVERIO MD 706.3 Seborrhea 10/23/2010 FERNY SILVERIO MD 706.3 Seborrhea 10/23/2010 FERNY SILVERIO MD 706.3 Seborrhea 10/23/2010 JEAN CLAUDE SCHWARTZ, FERNY 706.3 Seborrhea 10/23/2010 ANGELICA CONLEY DO 706.3 Seborrhea 10/23/2010 706.3 Seborrhea 10/23/2010 FERNY SILVERIO MD 706.3 Seborrhea 10/23/2010 FERNY SILVERIO MD 706.3 Seborrhea 10/23/2010 YUDITH SHARIF APRN 706.3 Seborrhea 10/23/2010 FERNY SILVERIO MD 706.3 Seborrhea 12/23/2010 311 DEPRESSIVE DISORDER NOT ELSEWHERE CLASSIFIED 12/23/2010 686.9 Unspecified Local Infection Of Skin And Subcutaneous Tissue 12/23/2010 ANGELICA CONLEY DO 311 DEPRESSIVE DISORDER NOT ELSEWHERE CLASSIFIED 12/23/2010 ANGELICA CONLEY DO 686.9 Unspecified Local Infection Of Skin And Subcutaneous Tissue 12/23/2010 FERNY SILVERIO MD 311 DEPRESSIVE DISORDER NOT ELSEWHERE CLASSIFIED 12/23/2010 FERNY SILVERIO MD.9 Unspecified Local Infection Of Skin And Subcutaneous Tissue 12/23/2010 FERNY SILVERIO MD 311 DEPRESSIVE DISORDER NOT ELSEWHERE CLASSIFIED 12/23/2010 FERNY SILVERIO MD6.9 Unspecified Local Infection Of Skin And Subcutaneous Tissue 12/23/2010 311 DEPRESSIVE DISORDER NOT ELSEWHERE CLASSIFIED 12/23/2010 686.9 Unspecified Local Infection Of Skin And Subcutaneous Tissue 12/23/2010 311 DEPRESSIVE DISORDER NOT ELSEWHERE CLASSIFIED 12/23/2010 686.9 Unspecified Local Infection Of Skin And Subcutaneous Tissue 12/23/2010 311 DEPRESSIVE DISORDER NOT ELSEWHERE CLASSIFIED 12/23/2010 686.9 Unspecified Local Infection Of Skin And Subcutaneous Tissue 12/23/2010 311 DEPRESSIVE DISORDER NOT ELSEWHERE CLASSIFIED 12/23/2010 686.9 Unspecified Local Infection Of Skin And Subcutaneous Tissue 12/23/2010 CONLEY DO ANGELICA K 311 DEPRESSIVE DISORDER NOT ELSEWHERE CLASSIFIED 12/23/2010 CONLEY DO ANGELICA K 686.9 Unspecified Local Infection Of Skin And Subcutaneous Tissue 12/23/2010 FERNY SILVERIO MD 311 DEPRESSIVE DISORDER NOT ELSEWHERE CLASSIFIED 12/23/2010 FERNY SILVERIO MD.9 Unspecified Local Infection Of Skin And Subcutaneous Tissue 12/23/2010 CONLEY DO ANGELICA K 311 DEPRESSIVE DISORDER NOT ELSEWHERE CLASSIFIED 12/23/2010 CONLEY DOLATAA K 686.9 Unspecified Local Infection Of Skin And Subcutaneous Tissue 12/23/2010 CONLEY DO ANGELICA K 311 DEPRESSIVE DISORDER NOT ELSEWHERE CLASSIFIED 12/23/2010 CONLEY DOLATAA K 686.9 Unspecified Local Infection Of Skin And Subcutaneous Tissue 12/23/2010 FERNY SILVERIO MD DEPRESSIVE DISORDER NOT ELSEWHERE CLASSIFIED 12/23/2010 FERNY SILVERIO MD.Ian Unspecified Local Infection Of Skin And Subcutaneous Tissue 12/23/2010 FERNY SILVERIO MD DEPRESSIVE DISORDER NOT ELSEWHERE CLASSIFIED 12/23/2010 FERNY SILVERIO MD.aIn Unspecified Local Infection Of Skin And Subcutaneous Tissue 12/23/2010 FERNY SILVERIO MD DEPRESSIVE DISORDER NOT ELSEWHERE CLASSIFIED 12/23/2010 FERNY SILVERIO MD.Ian Unspecified Local Infection Of Skin And Subcutaneous Tissue 12/23/2010 FERNY SILVERIO MD DEPRESSIVE DISORDER NOT ELSEWHERE CLASSIFIED 12/23/2010 FERNY SILVERIO MD.9 Unspecified Local Infection Of Skin And Subcutaneous Tissue 12/23/2010 FERNY SILVERIO MD DEPRESSIVE DISORDER NOT ELSEWHERE CLASSIFIED 12/23/2010 FERNY SILVERIO MD.9 Unspecified Local Infection Of Skin And Subcutaneous Tissue 12/23/2010 FERNY SILVERIO MD DEPRESSIVE DISORDER NOT ELSEWHERE CLASSIFIED 12/23/2010 FERNY SILVERIO MD.9 Unspecified Local Infection Of Skin And Subcutaneous Tissue 12/23/2010 ANGELICA CONLEY DO 311 DEPRESSIVE DISORDER NOT ELSEWHERE CLASSIFIED 12/23/2010 ANGELICA CONLEY DO 686.9 Unspecified Local Infection Of Skin And Subcutaneous Tissue 12/23/2010 311 DEPRESSIVE DISORDER NOT ELSEWHERE CLASSIFIED 12/23/2010 686.9 Unspecified Local Infection Of Skin And Subcutaneous Tissue 12/23/2010 FERNY SILVERIO MD 311 DEPRESSIVE DISORDER NOT ELSEWHERE CLASSIFIED 12/23/2010 FERNY SILVERIO MD 686.9 Unspecified Local Infection Of Skin And Subcutaneous Tissue 12/23/2010 FERNY SILVERIO MD 311 DEPRESSIVE DISORDER NOT ELSEWHERE CLASSIFIED 12/23/2010 FERNY SILVERIO MD 686.9 Unspecified Local Infection Of Skin And Subcutaneous Tissue 12/23/2010 MADL BOAT HOPYUDITH Barbosa L 311 DEPRESSIVE DISORDER NOT ELSEWHERE CLASSIFIED 12/23/2010 YUDITH SHARIF APRN 686.9 Unspecified Local Infection Of Skin And Subcutaneous Tissue 12/23/2010 FERNY SILVERIO MD 311 DEPRESSIVE DISORDER NOT ELSEWHERE CLASSIFIED 12/23/2010 FERNY SILVERIO MD 686.9 Unspecified Local Infection Of Skin And Subcutaneous Tissue 03/13/2011 V04.81 Flu Dx (3 Yrs And Above, Im) 03/13/2011 ANGELICA CONLEY DO V04.81 Flu Dx (3 Yrs And Above, Im) 03/13/2011 FERNY SILVERIO MD V04.81 Flu Dx (3 Yrs And Above, Im) 03/13/2011 FERNY SILVERIO MD V04.81 Flu Dx (3 Yrs And Above, Im) 03/13/2011 V04.81 Flu Dx (3 Yrs And Above, Im) 03/13/2011 V04.81 Flu Dx (3 Yrs And Above, Im) 03/13/2011 V04.81 Flu Dx (3 Yrs And Above, Im) 03/13/2011 V04.81 Flu Dx (3 Yrs And Above, Im) 03/13/2011 ANGELICA CONLEY DO V04.81 Flu Dx (3 Yrs And Above, Im) 03/13/2011 FERNY SILVERIO MD V04.81 Flu Dx (3 Yrs And Above, Im) 03/13/2011 ANGELICA CONLEY DO V04.81 Flu Dx (3 Yrs And Above, Im) 03/13/2011 ANGELICA CONLEY DO V04.81 Flu Dx (3 Yrs And Above, Im) 03/13/2011 FERNY SILVERIO MD V04.81 Flu Dx (3 Yrs And Above, Im) 03/13/2011 FERNY SILVERIO MD V04.81 Flu Dx (3 Yrs And Above, Im) 03/13/2011 FERNY SILVERIO MD V04.81 Flu Dx (3 Yrs And Above, Im) 03/13/2011 FERNY SILVERIO MD V04.81 Flu Dx (3 Yrs And Above, Im) 03/13/2011 FERNY SILVERIO MD V04.81 Flu Dx (3 Yrs And Above, Im) 03/13/2011 FERNY SILVERIO MD V04.81 Flu Dx (3 Yrs And Above, Im) 03/13/2011 ANGELICA CONLEY DO V04.81 Flu Dx (3 Yrs And Above, Im) 03/13/2011 V04.81 Flu Dx (3 Yrs And Above, Im) 03/13/2011 FERNY SILVERIO MD V04.81 Flu Dx (3 Yrs And Above, Im) 03/13/2011 FERNY SILVERIO MD V04.81 Flu Dx (3 Yrs And Above, Im) 03/13/2011 YUDITH SHARIF APRN V04.81 Flu Dx (3 Yrs And Above, Im) 03/13/2011 FERNY SILVERIO MD V04.81 Flu Dx (3 Yrs And Above, Im) 04/17/2011 250.80 DIABETES MELLITUS WITH FOOT ULCER 04/17/2011 V72.83 Pre- admission Examination 04/17/2011 ANGELICA CONLEY DO 250.80 DIABETES MELLITUS WITH FOOT ULCER 04/17/2011 ANGELICA CONLEY DO V72.83 Pre-admission Examination 04/17/2011 FERNY SILVERIO MD 250.80 DIABETES MELLITUS WITH FOOT ULCER 04/17/2011 FERNY SILVERIO MD V72.83 Pre-admission Examination 04/17/2011 FERNY SILVERIO MD 250.80 DIABETES MELLITUS WITH FOOT ULCER 04/17/2011 FERNY SILVERIO MD V72.83 Pre-admission Examination 04/17/2011 250.80 DIABETES MELLITUS WITH FOOT ULCER 04/17/2011 V72.83 Pre- admission Examination 04/17/2011 250.80 DIABETES MELLITUS WITH FOOT ULCER 04/17/2011 V72.83 Pre- admission Examination 04/17/2011 250.80 DIABETES MELLITUS WITH FOOT ULCER 04/17/2011 V72.83 Pre- admission Examination 04/17/2011 250.80 DIABETES MELLITUS WITH FOOT ULCER 04/17/2011 V72.83 Pre- admission Examination 04/17/2011 LATA CONLEY DOA K 250.80 DIABETES MELLITUS WITH FOOT ULCER 04/17/2011 CONLEY DO ANGELICA K V72.83 Pre-admission Examination 04/17/2011 FERNY SILVERIO MD 250.80 DIABETES MELLITUS WITH FOOT ULCER 04/17/2011 FERNY SILVERIO MD V72.83 Pre-admission Examination 04/17/2011 CONLEY LATA REYEZA K 250.80 DIABETES MELLITUS WITH FOOT ULCER 04/17/2011 CONLEY LATA REYEZA K V72.83 Pre-admission Examination 04/17/2011 ANGELICA CONLEY DO K 250.80 DIABETES MELLITUS WITH FOOT ULCER 04/17/2011 LATA CONLEY DOA K V72.83 Pre-admission Examination 04/17/2011 FERNY SILVERIO MD.80 DIABETES MELLITUS WITH FOOT ULCER 04/17/2011 FERNY SILVERIO MD V72.83 Pre-admission Examination 04/17/2011 FERNY SILVERIO MD.80 DIABETES MELLITUS WITH FOOT ULCER 04/17/2011 FERNY SILVERIO MD V72.83 Pre-admission Examination 04/17/2011 FERNY SILVERIO MD.80 DIABETES MELLITUS WITH FOOT ULCER 04/17/2011 FERNY SILVERIO MD V72.83 Pre-admission Examination 04/17/2011 FERNY SILVERIO MD.80 DIABETES MELLITUS WITH FOOT ULCER 04/17/2011 FERNY SILVERIO MD V72.83 Pre-admission Examination 04/17/2011 FERNY SILVERIO MD.80 DIABETES MELLITUS WITH FOOT ULCER 04/17/2011 FERNY SILVERIO MD V72.83 Pre-admission Examination 04/17/2011 FERNY SILVERIO MD.80 DIABETES MELLITUS WITH FOOT ULCER 04/17/2011 FERNY SILVERIO MD V72.83 Pre-admission Examination 04/17/2011 ANGELICA CONLEY DO K 250.80 DIABETES MELLITUS WITH FOOT ULCER 04/17/2011 LATA CONLEY DOA K V72.83 Pre-admission Examination 04/17/2011 250.80 DIABETES MELLITUS WITH FOOT ULCER 04/17/2011 V72.83 Pre- admission Examination 04/17/2011 FERNY SILVERIO MD.80 DIABETES MELLITUS WITH FOOT ULCER 04/17/2011 FERNY SILVERIO MD V72.83 Pre-admission Examination 04/17/2011 FERNY SILVERIO MD 250.80 DIABETES MELLITUS WITH FOOT ULCER 04/17/2011 FENRY SILVERIO MD V72.83 Pre-admission Examination 04/17/2011 KOLE BOAT HOP, YUDITH L 250.80 DIABETES MELLITUS WITH FOOT ULCER 04/17/2011 MADL BOAT HOP, YUDITH L V72.83 Pre-admission Examination 04/17/2011 FERNY SILVERIO MD 250.80 DIABETES MELLITUS WITH FOOT ULCER 04/17/2011 FERNY SILVERIO MD V72.83 Pre-admission Examination 05/08/2011 558.9 Other And Unspecified Noninfectious Gastroenteritis And Colitis 05/08/2011 ANGELICA CONLEY DO 558.9 Other And Unspecified Noninfectious Gastroenteritis And Colitis 05/08/2011 FERNY SILVERIO MD 558.9 Other And Unspecified Noninfectious Gastroenteritis And Colitis 05/08/2011 FERNY SILVERIO MD8.9 Other And Unspecified Noninfectious Gastroenteritis And Colitis 05/08/2011 558.9 Other And Unspecified Noninfectious Gastroenteritis And Colitis 05/08/2011 558.9 Other And Unspecified Noninfectious Gastroenteritis And Colitis 05/08/2011 558.9 Other And Unspecified Noninfectious Gastroenteritis And Colitis 05/08/2011 558.9 Other And Unspecified Noninfectious Gastroenteritis And Colitis 05/08/2011 ANGELICA CONLEY DO 558.9 Other And Unspecified Noninfectious Gastroenteritis And Colitis 05/08/2011 FERNY SILVERIO MD8.9 Other And Unspecified Noninfectious Gastroenteritis And Colitis 05/08/2011 ANGELICA CONLEY DO 558.9 Other And Unspecified Noninfectious Gastroenteritis And Colitis 05/08/2011 ANGELICA CONLEY DO 558.9 Other And Unspecified Noninfectious Gastroenteritis And Colitis 05/08/2011 FERNY SILVERIO MD8.9 Other And Unspecified Noninfectious Gastroenteritis And Colitis 05/08/2011 FERNY SILVERIO MD8.9 Other And Unspecified Noninfectious Gastroenteritis And Colitis 05/08/2011 FERNY SILVERIO MD8.9 Other And Unspecified Noninfectious Gastroenteritis And Colitis 05/08/2011 FERNY SILVERIO MD 558.9 Other And Unspecified Noninfectious Gastroenteritis And Colitis 05/08/2011 FERNY SILVERIO MD 558.9 Other And Unspecified Noninfectious Gastroenteritis And Colitis 05/08/2011 FERNY SILVERIO MD 558.9 Other And Unspecified Noninfectious Gastroenteritis And Colitis 05/08/2011 ANGELICA CONLEY DO 558.9 Other And Unspecified Noninfectious Gastroenteritis And Colitis 05/08/2011 558.9 Other And Unspecified Noninfectious Gastroenteritis And Colitis 05/08/2011 FERNY SILVERIO MD 558.9 Other And Unspecified Noninfectious Gastroenteritis And Colitis 05/08/2011 FERNY SILVERIO MD 558.9 Other And Unspecified Noninfectious Gastroenteritis And Colitis 05/08/2011 YUDITH SHARIF APRN 558.9 Other And Unspecified Noninfectious Gastroenteritis And Colitis 05/08/2011 FERNY SILVERIO MD 558.9 Other And Unspecified Noninfectious Gastroenteritis And Colitis 06/22/2011 716.90 ARTHRITIS 06/22/2011 ANGELICA CONLEY DO 716.90 ARTHRITIS 06/22/2011 FERNY SILVERIO MD 716.90 ARTHRITIS 06/22/2011 FERNY SILVERIO MD 716.90 ARTHRITIS 06/22/2011 716.90 ARTHRITIS 06/22/2011 716.90 ARTHRITIS 06/22/2011 716.90 ARTHRITIS 06/22/2011 716.90 ARTHRITIS 06/22/2011 ANGELICA CONLEY DO 716.90 ARTHRITIS 06/22/2011 FERNY SILVERIO MD 716.90 ARTHRITIS 06/22/2011 ANGELICA CONLEY DO 716.90 ARTHRITIS 06/22/2011 ANGELICA CONLEY DO 716.90 ARTHRITIS 06/22/2011 JEAN CLAUDE SCHWARTZ, FERNY 716.90 ARTHRITIS 06/22/2011 FERNY SILVERIO MD 716.90 ARTHRITIS 06/22/2011 FERNY SILVERIO MD 716.90 ARTHRITIS 06/22/2011 JEAN CLAUDE SCHWARTZ, FERNY 716.90 ARTHRITIS 06/22/2011 FERNY SILVERIO MD 716.90 ARTHRITIS 06/22/2011 FERNY SILVERIO MD 716.90 ARTHRITIS 06/22/2011 ANGELICA CONLEY DO 716.90 ARTHRITIS 06/22/2011 716.90 ARTHRITIS 06/22/2011 JEAN CLAUDE SCHWARTZ, FERNY 716.90 ARTHRITIS 06/22/2011 FERNY SILVERIO MD 716.90 ARTHRITIS 06/22/2011 YUDITH SHARIF APRN 716.90 ARTHRITIS 06/22/2011 FERNY SILVERIO MD 716.90 ARTHRITIS 09/03/2011 584.9 Acute Renal Failure 09/03/2011 ANGELICA CONLEY DO 584.9 Acute Renal Failure 09/03/2011 FERNY SILVERIO MD 584.9 Acute Renal Failure 09/03/2011 FERNY SILVERIO MD 584.9 Acute Renal Failure 09/03/2011 584.9 Acute Renal Failure 09/03/2011 584.9 Acute Renal Failure 09/03/2011 584.9 Acute Renal Failure 09/03/2011 584.9 Acute Renal Failure 09/03/2011 ANGELICA CONLEY DO 584.9 Acute Renal Failure 09/03/2011 FERNY SILVERIO MD 584.9 Acute Renal Failure 09/03/2011 ANGELICA CONLEY DO 584.9 Acute Renal Failure 09/03/2011 ANGELICA CONLEY DO 584.9 Acute Renal Failure 09/03/2011 FERNY SILVERIO MD 584.9 Acute Renal Failure 09/03/2011 FERNY SILVERIO MD 584.9 Acute Renal Failure 09/03/2011 FERNY SILVERIO MD 584.9 Acute Renal Failure 09/03/2011 FERNY SILVERIO MD 584.9 Acute Renal Failure 09/03/2011 FERNY SILVERIO MD 584.9 Acute Renal Failure 09/03/2011 FERNY SILVERIO MD 584.9 Acute Renal Failure 09/03/2011 ANGELICA CONLEY DO 584.9 Acute Renal Failure 09/03/2011 584.9 Acute Renal Failure 09/03/2011 FERNY SILVERIO MD4.9 Acute Renal Failure 09/03/2011 FERNY SILVERIO MD 584.9 Acute Renal Failure 09/03/2011 YUDITH SHARIF APRN 584.9 Acute Renal Failure 09/03/2011 FERNY SILVERIO MD 584.9 Acute Renal Failure 09/21/2011 719.47 FOOT PAIN 09/21/2011 ANGELICA CONLEY DO 719.47 FOOT PAIN 09/21/2011 FERNY SILVERIO MD 719.47 Foot Pain 09/21/2011 FERNY SILVERIO MD 719.47 Foot Pain 09/21/2011 719.47 Foot Pain 09/21/2011 719.47 Foot Pain 09/21/2011 719.47 Foot Pain 09/21/2011 719.47 Foot Pain 09/21/2011 ANGELICA CONLEY DO 719.47 Foot Pain 09/21/2011 FERNY SILVERIO MD 719.47 Foot Pain 09/21/2011 ANGELICA CONLEY DO 719.47 Foot Pain 09/21/2011 ANGELICA CONLEY DO 719.47 Foot Pain 09/21/2011 FERNY SILVERIO MD.47 Foot Pain 09/21/2011 FERNY SILVERIO MD.47 Foot Pain 09/21/2011 FERNY SILVERIO MD 719.47 Foot Pain 09/21/2011 FERNY SILVERIO MD 719.47 Foot Pain 09/21/2011 FERNY SILVERIO MD 719.47 Foot Pain 09/21/2011 FERNY SILVERIO MD 719.47 Foot Pain 09/21/2011 ANGELICA CONLEY DO 719.47 Foot Pain 09/21/2011 719.47 FOOT PAIN 09/21/2011 FERNY SILVERIO MD.47 Foot Pain 09/21/2011 FERNY SILVERIO MD.47 Foot Pain 09/21/2011 YUDITH SHARIF APRN 719.47 Foot Pain 09/21/2011 FERNY SILVERIO MD 719.47 Foot Pain 09/28/2011 733.19 PATHOLOGICAL FRACTURE OF OTHER SPECIFIED SITE 09/28/2011 ANGELICA CONLEY DO 733.19 PATHOLOGICAL FRACTURE OF OTHER SPECIFIED SITE 09/28/2011 FERNY SILVERIO MD 733.19 Pathological Fracture Of Other Specified Site 09/28/2011 FERNY SILVERIO MD 733.19 Pathological Fracture Of Other Specified Site 09/28/2011 733.19 Pathological Fracture Of Other Specified Site 09/28/2011 733.19 Pathological Fracture Of Other Specified Site 09/28/2011 733.19 Pathological Fracture Of Other Specified Site 09/28/2011 733.19 Pathological Fracture Of Other Specified Site 09/28/2011 ANGELICA CONLEY DO 733.19 Pathological Fracture Of Other Specified Site 09/28/2011 FERNY SILVERIO MD 733.19 Pathological Fracture Of Other Specified Site 09/28/2011 ANGELICA CONLEY DO 733.19 Pathological Fracture Of Other Specified Site 09/28/2011 ANGELICA CONLEY DO 733.19 Pathological Fracture Of Other Specified Site 09/28/2011 FERNY SILVERIO MD 733.19 Pathological Fracture Of Other Specified Site 09/28/2011 FERNY SILVERIO MD 733.19 Pathological Fracture Of Other Specified Site 09/28/2011 FERNY SILVERIO MD 733.19 Pathological Fracture Of Other Specified Site 09/28/2011 FERNY SILVERIO MD 733.19 Pathological Fracture Of Other Specified Site 09/28/2011 FERNY SILVERIO MD 733.19 Pathological Fracture Of Other Specified Site 09/28/2011 FERNY SILVERIO MD 733.19 Pathological Fracture Of Other Specified Site 09/28/2011 ANGELICA CONLEY DO 733.19 Pathological Fracture Of Other Specified Site 09/28/2011 733.19 PATHOLOGICAL FRACTURE OF OTHER SPECIFIED SITE 09/28/2011 FERNY SILVERIO MD 733.19 Pathological Fracture Of Other Specified Site 09/28/2011 FERNY SILVERIO MD 733.19 Pathological Fracture Of Other Specified Site 09/28/2011 YUDITH SHARIF APRN 733.19 Pathological Fracture Of Other Specified Site 09/28/2011 FERNY SILVERIO MD 733.19 Pathological Fracture Of Other Specified Site 11/27/2011 465.9 Upper Respiratory Infection 11/27/2011 ANGELICA CONLEY DO 465.9 Upper Respiratory Infection 11/27/2011 FERNY SILVERIO MD 465.9 Upper Respiratory Infection 11/27/2011 FERNY SILVERIO MD 465.9 Upper Respiratory Infection 11/27/2011 465.9 Upper Respiratory Infection 11/27/2011 465.9 Upper Respiratory Infection 11/27/2011 465.9 Upper Respiratory Infection 11/27/2011 465.9 Upper Respiratory Infection 11/27/2011 ANGELICA CONLEY DO 465.9 Upper Respiratory Infection 11/27/2011 FERNY SILVERIO MD 465.9 Upper Respiratory Infection 11/27/2011 ANGELICA CONLEY DO 465.9 Upper Respiratory Infection 11/27/2011 ANGELICA CONLEY DO 465.9 Upper Respiratory Infection 11/27/2011 FERNY SILVERIO MD 465.9 Upper Respiratory Infection 11/27/2011 FERNY SILVERIO MD 465.9 Upper Respiratory Infection 11/27/2011 FERNY SILVERIO MD 465.9 Upper Respiratory Infection 11/27/2011 FERNY SILVERIO MD 465.9 Upper Respiratory Infection 11/27/2011 FERNY SILVERIO MD 465.9 Upper Respiratory Infection 11/27/2011 FERNY SILVERIO MD 465.9 Upper Respiratory Infection 11/27/2011 ANGELICA CONLEY DO 465.9 Upper Respiratory Infection 11/27/2011 465.9 Upper Respiratory Infection 11/27/2011 FERNY SILVERIO MD 465.9 Upper Respiratory Infection 11/27/2011 FERNY SILVERIO MD 465.9 Upper Respiratory Infection 11/27/2011 YUDITH SHARIF APRN 465.9 Upper Respiratory Infection 11/27/2011 FERNY SILVERIO MD 465.9 Upper Respiratory Infection 03/22/2012 682.9 CELLULITIS AND ABSCESS OF UNSPECIFIED SITES 03/22/2012 ANGELICA CONLEY DO 682.9 CELLULITIS AND ABSCESS OF UNSPECIFIED SITES 03/22/2012 FERNY SILVERIO MD 682.9 Cellulitis And Abscess Of Unspecified Sites 03/22/2012 FERNY SILVERIO MD 682.9 Cellulitis And Abscess Of Unspecified Sites 03/22/2012 682.9 Cellulitis And Abscess Of Unspecified Sites 03/22/2012 682.9 Cellulitis And Abscess Of Unspecified Sites 03/22/2012 682.9 Cellulitis And Abscess Of Unspecified Sites 03/22/2012 682.9 Cellulitis And Abscess Of Unspecified Sites 03/22/2012 ANGELICA CONLEY DO 682.9 Cellulitis And Abscess Of Unspecified Sites 03/22/2012 FERNY SILVERIO MD 682.9 Cellulitis And Abscess Of Unspecified Sites 03/22/2012 ANGELICA CONLEY DO 682.9 Cellulitis And Abscess Of Unspecified Sites 03/22/2012 ANGELICA CONLEY DO 682.9 Cellulitis And Abscess Of Unspecified Sites 03/22/2012 FERNY SILVERIO MD 682.9 Cellulitis And Abscess Of Unspecified Sites 03/22/2012 FERNY SILVERIO MD 682.9 Cellulitis And Abscess Of Unspecified Sites 03/22/2012 FERNY SILVERIO MD 682.9 Cellulitis And Abscess Of Unspecified Sites 03/22/2012 FERNY SILVERIO MD 682.9 Cellulitis And Abscess Of Unspecified Sites 03/22/2012 FERNY SILVERIO MD2.9 Cellulitis And Abscess Of Unspecified Sites 03/22/2012 FERNY SILVERIO MD 682.9 Cellulitis And Abscess Of Unspecified Sites 03/22/2012 ANGELICA CONLEY DO 682.9 Cellulitis And Abscess Of Unspecified Sites 03/22/2012 682.9 CELLULITIS AND ABSCESS OF UNSPECIFIED SITES 03/22/2012 FERNY SILVERIO MD 682.9 Cellulitis And Abscess Of Unspecified Sites 03/22/2012 FERNY SILVERIO MD 682.9 Cellulitis And Abscess Of Unspecified Sites 03/22/2012 YUDITH SHARIF APRN 682.9 Cellulitis And Abscess Of Unspecified Sites 03/22/2012 FERNY SILVERIO MD 682.9 Cellulitis And Abscess Of Unspecified Sites 04/28/2012 380.10 INFECTIVE OTITIS EXTERNA UNSPECIFIED 04/28/2012 ANGELICA CONLEY DO 380.10 INFECTIVE OTITIS EXTERNA UNSPECIFIED 04/28/2012 FERNY SILVERIO MD 380.10 INFECTIVE OTITIS EXTERNA UNSPECIFIED 04/28/2012 FERNY SILVERIO MD 380.10 Infective Otitis Externa Unspecified 04/28/2012 380.10 Infective Otitis Externa Unspecified 04/28/2012 380.10 Infective Otitis Externa Unspecified 04/28/2012 380.10 Infective Otitis Externa Unspecified 04/28/2012 380.10 Infective Otitis Externa Unspecified 04/28/2012 ANGELICA CONLEY DO 380.10 Infective Otitis Externa Unspecified 04/28/2012 FERNY SILVERIO MD 380.10 Infective Otitis Externa Unspecified 04/28/2012 ANGELICA CONLEY DO 380.10 Infective Otitis Externa Unspecified 04/28/2012 ANGELICA CONLEY DO 380.10 Infective Otitis Externa Unspecified 04/28/2012 FERNY SILVERIO MD 380.10 Infective Otitis Externa Unspecified 04/28/2012 FRENY SILVERIO MD 380.10 Infective Otitis Externa Unspecified 04/28/2012 FERNY SILVERIO MD 380.10 Infective Otitis Externa Unspecified 04/28/2012 FERNY SILVERIO MD 380.10 Infective Otitis Externa Unspecified 04/28/2012 JEAN CLAUDE SCHWARTZ, FERNY 380.10 Infective Otitis Externa Unspecified 04/28/2012 FERNY SILVERIO MD 380.10 Infective Otitis Externa Unspecified 04/28/2012 ANGELICA CONLEY DO 380.10 Infective Otitis Externa Unspecified 04/28/2012 FERNY SILVERIO MD 380.10 Infective Otitis Externa Unspecified 04/28/2012 FERNY SILVERIO MD 380.10 Infective Otitis Externa Unspecified 04/28/2012 YUDITH SHARIF APRN 380.10 Infective Otitis Externa Unspecified 04/28/2012 FERNY SILVERIO MD 380.10 Infective Otitis Externa Unspecified 05/16/2012 ANGELICA CONLEY DO 730.10 OSTEOMYELITIS 05/16/2012 FERNY SILVERIO MD 730.10 Osteomyelitis 05/16/2012 FERNY SILVERIO MD 730.10 Osteomyelitis 05/16/2012 730.10 Osteomyelitis 05/16/2012 730.10 Osteomyelitis 05/16/2012 730.10 Osteomyelitis 05/16/2012 730.10 Osteomyelitis 05/16/2012 ANGELICA CONLEY DO 730.10 Osteomyelitis 05/16/2012 FERNY SILVERIO MD 730.10 Osteomyelitis 05/16/2012 ANGELICA CONLEY DO 730.10 Osteomyelitis 05/16/2012 ANGELICA CONLEY DO K 730.10 Osteomyelitis 05/16/2012 FERNY SILVERIO MD 730.10 Osteomyelitis 05/16/2012 FERNY SILVERIO MD 730.10 Osteomyelitis 05/16/2012 FERNY SILVERIO MD 730.10 Osteomyelitis 05/16/2012 FERNY SILVERIO MD 730.10 Osteomyelitis 05/16/2012 FERNY SILVERIO MD 730.10 Osteomyelitis 05/16/2012 JEAN CLAUDE SCHWARTZ, FERNY 730.10 Osteomyelitis 05/16/2012 ANGELICA CONLEY DO 730.10 Osteomyelitis 05/16/2012 FERNY SILVERIO MD 730.10 Osteomyelitis 05/16/2012 FERNY SILVERIO MD 730.10 Osteomyelitis 05/16/2012 YUDITH SHARIF APRN 730.10 Osteomyelitis 05/16/2012 FERNY SILVERIO MD 730.10 Osteomyelitis 06/13/2012 FERNY SILVERIO MD 924.9 CONTUSION OF UNSPECIFIED SITE 06/13/2012 FERNY SILVERIO MD 924.9 Contusion Of Unspecified Site 06/13/2012 924.9 Contusion Of Unspecified Site 06/13/2012 924.9 Contusion Of Unspecified Site 06/13/2012 924.9 Contusion Of Unspecified Site 06/13/2012 924.9 Contusion Of Unspecified Site 06/13/2012 ANGELICA CONLEY DO K 924.9 Contusion Of Unspecified Site 06/13/2012 FERNY SILVERIO MD 924.9 Contusion Of Unspecified Site 06/13/2012 ANGELICA CONLEY DO K 924.9 Contusion Of Unspecified Site 06/13/2012 LATA CONLEY DOA K 924.9 Contusion Of Unspecified Site 06/13/2012 FERNY SILVERIO MD 924.9 Contusion Of Unspecified Site 06/13/2012 FERNY SILVERIO MD 924.9 Contusion Of Unspecified Site 06/13/2012 FERNY SILVERIO MD 924.9 Contusion Of Unspecified Site 06/13/2012 FERNY SILVERIO MD 924.9 Contusion Of Unspecified Site 06/13/2012 FERNY SILVERIO MD 924.9 Contusion Of Unspecified Site 06/13/2012 FERNY SILVERIO MD 924.9 Contusion Of Unspecified Site 06/13/2012 ANGELICA CONLEY DO K 924.9 Contusion Of Unspecified Site 06/13/2012 FERNY SILVERIO MD 924.9 Contusion Of Unspecified Site 06/13/2012 FERNY SILVERIO MD 924.9 Contusion Of Unspecified Site 06/13/2012 YUDITH SHARIF APRN 924.9 Contusion Of Unspecified Site 06/13/2012 FERNY SILVERIO MD 924.9 Contusion Of Unspecified Site 08/22/2012 FERNY SILVERIO MD 466.0 ACUTE BRONCHITIS 08/22/2012 466.0 ACUTE BRONCHITIS 08/22/2012 466.0 ACUTE BRONCHITIS 08/22/2012 466.0 ACUTE BRONCHITIS 08/22/2012 466.0 ACUTE BRONCHITIS 08/22/2012 LATA CONLEY DOA K 466.0 ACUTE BRONCHITIS 08/22/2012 FERNY SILVERIO MD 466.0 ACUTE BRONCHITIS 08/22/2012 CONLEY DO, ANGELICA K 466.0 ACUTE BRONCHITIS 08/22/2012 YAEL REYEZ ANGELICA K 466.0 ACUTE BRONCHITIS 08/22/2012 JEAN CLAUDE SCHWARTZ, FERNY 466.0 ACUTE BRONCHITIS 08/22/2012 JEAN CLAUDE SCHWARTZ, FERNY 466.0 ACUTE BRONCHITIS 08/22/2012 JEAN CLAUDE SCHWARTZ, FERNY 466.0 ACUTE BRONCHITIS 08/22/2012 JEAN CLAUDE SCHWARTZ, FERNY 466.0 ACUTE BRONCHITIS 08/22/2012 JEAN CLAUDE SCHWARTZ, FERNY 466.0 ACUTE BRONCHITIS 08/22/2012 JEAN CLAUDE SCHWARTZ, FERNY 466.0 ACUTE BRONCHITIS 08/22/2012 ANGELICA CONLEY DO K 466.0 ACUTE BRONCHITIS 08/22/2012 JEAN CLAUDE SCHWARTZ, FERNY 466.0 ACUTE BRONCHITIS 08/22/2012 JEAN CLAUDE SCHWARTZ, FERNY 466.0 ACUTE BRONCHITIS 08/22/2012 YUDITH SHARIF APRN 466.0 ACUTE BRONCHITIS 08/22/2012 JEAN CLAUDE SCHWARTZ, FERNY 466.0 ACUTE BRONCHITIS 01/25/2013 V58.31 WOUND DRESSING 01/25/2013 LATA CONLEY DOA K V58.31 WOUND DRESSING 01/25/2013 JEAN CLAUDE SCHWARTZ, FERNY V58.31 WOUND DRESSING 01/25/2013 YAEL REYEZ ANGELICA K V58.31 WOUND DRESSING 01/25/2013 LATA CONLEY DOA K V58.31 WOUND DRESSING 01/25/2013 JEAN CLAUDE SCHWARTZ, FERNY V58.31 WOUND DRESSING 01/25/2013 JEAN CLAUDE SCHWARTZ, FERNY V58.31 WOUND DRESSING 01/25/2013 JEAN CLAUDE SCHWARTZ, FERNY V58.31 WOUND DRESSING 01/25/2013 JEAN CLAUDE SCHWARTZ, FERNY V58.31 WOUND DRESSING 01/25/2013 JEAN CLAUDE SCHWARTZ, FERNY V58.31 WOUND DRESSING 01/25/2013 JEAN CLAUDE SCHWARTZ, FERNY V58.31 WOUND DRESSING 01/25/2013 ANGELICA CONLEY DO K V58.31 WOUND DRESSING 01/25/2013 JEAN CLAUDE SCHWARTZ, FERNY V58.31 WOUND DRESSING 01/25/2013 JEAN CLAUDE SCHWARTZ, FERNY V58.31 WOUND DRESSING 01/25/2013 YUDITH SHARIF APRN V58.31 WOUND DRESSING 01/25/2013 JEAN CLAUDE SCHWARTZ, FERNY V58.31 WOUND DRESSING 06/14/2013 ANGELICA CONLEY DO K 466.0 BRONCHITIS, ACUTE 06/14/2013 JEAN CLAUDE SCHWARTZ, FERNY 466.0 BRONCHITIS, ACUTE 06/14/2013 JEAN CLAUDE SCHWARTZ, FERNY 466.0 BRONCHITIS, ACUTE 06/14/2013 JEAN CLAUDE SCHWARTZ, FERNY 466.0 BRONCHITIS, ACUTE 06/14/2013 JEAN CLAUDE SCHWARTZ, FERNY 466.0 BRONCHITIS, ACUTE 06/14/2013 JEAN CLAUDE SCHWARTZ, FERNY 466.0 BRONCHITIS, ACUTE 06/14/2013 JEAN CLAUDE SCHWARTZ, FERNY 466.0 BRONCHITIS, ACUTE 06/14/2013 ANGELICA CONLEY DO 466.0 BRONCHITIS, ACUTE 06/14/2013 JEAN CLAUDE SCHWARTZ, FERNY 466.0 BRONCHITIS, ACUTE 06/14/2013 FERNY SILVERIO MD 466.0 BRONCHITIS, ACUTE 06/14/2013 YUDITH SHARIF APRN 466.0 BRONCHITIS, ACUTE 06/14/2013 FERNY SILVERIO MD 466.0 BRONCHITIS, ACUTE 08/01/2013 FERNY SILVERIO MD F Ot V58.81 02/04/2014 LIOR SCHWARTZ, DELL A Ot 250.00 02/04/2014 LIOR SCHWARTZ, DELL A Ot 401.9 02/04/2014 LIOR SCHWARTZ, DELL A Ot 724.5 02/04/2014 LIOR SCHWARTZ, DELL A Ot 780.60 02/19/2014 FERNY SILVERIO MD 686.9 UNSPECIFIED LOCAL INFECTION OF SKIN AND SUBCUTANEOUS TISSUE 02/19/2014 ANGELICA CONLEY DO 686.9 UNSPECIFIED LOCAL INFECTION OF SKIN AND SUBCUTANEOUS TISSUE 02/19/2014 FERNY SILVERIO MD 686.9 UNSPECIFIED LOCAL INFECTION OF SKIN AND SUBCUTANEOUS TISSUE 02/19/2014 FERNY SILVERIO MD 686.9 UNSPECIFIED LOCAL INFECTION OF SKIN AND SUBCUTANEOUS TISSUE 02/19/2014 YUDITH SHARIF APRN 686.9 UNSPECIFIED LOCAL INFECTION OF SKIN AND SUBCUTANEOUS TISSUE 02/19/2014 FERNY SILVERIO MD 686.9 UNSPECIFIED LOCAL INFECTION OF SKIN AND SUBCUTANEOUS TISSUE 03/14/2014 ANGELICA CONLEY DO V04.81 FLU SHOT 03/14/2014 FERNY SILVERIO MD V04.81 FLU SHOT 03/14/2014 FERNY SILVERIO MD V04.81 FLU SHOT 03/14/2014 YUDITH SHARIF APRN V04.81 FLU SHOT 03/14/2014 FERNY SILVERIO MD V04.81 FLU SHOT 03/20/2014 Ot V58.81 04/18/2014 JEAN CLAUDE SCHWARTZ, FERNY Guerrero Ot V58.81 04/18/2014 JEAN CLAUDE SCHWARTZ, FERNY Guerrero Ot V58.81 04/18/2014 JEAN CLAUDE SCHWARTZ, FERNY Guerrero Ot V58.81 04/18/2014 JEAN CLAUDE SCHWARTZ, FERNY Guerrero Ot V58.81 04/19/2014 JEAN CLAUDE SCHWARTZ, FERNY Guerrero Ot V58.81 04/24/2014 JEAN CLAUDE SCHWARTZ, FERNY 780.79 OTHER MALAISE AND FATIGUE 04/24/2014 JEAN CLAUDE SCHWARTZ, FERNY 780.79 OTHER MALAISE AND FATIGUE 04/24/2014 YUDITH SHARIF APRN 780.79 OTHER MALAISE AND FATIGUE 04/24/2014 JEAN CLAUDE SCHWARTZ, FERNY 780.79 OTHER MALAISE AND FATIGUE 05/22/2014 JEAN CLAUDE SCHWARTZ, FERNY Guerrero Ot V58.81 05/28/2014 JEAN CLAUDE SCHWARTZ, FERNY Guerrero Ot V58.81 06/01/2014 JEAN CLAUDE SCHWARTZ, FERNY V58.81 FITTING AND ADJUSTMENT OF VASCULAR CATHETER 06/01/2014 YUDITH SHARIF APRN V58.81 FITTING AND ADJUSTMENT OF VASCULAR CATHETER 06/01/2014 FERNY SILVERIO MD V58.81 FITTING AND ADJUSTMENT OF VASCULAR CATHETER 06/02/2014 YUDITH SHARIF APRN 461.9 SINUSITIS ACUTE 06/02/2014 JEAN CLAUDE SCHWARTZ, FERNY 461.9 SINUSITIS ACUTE 06/13/2014 ABNER HAMILTON Ot 487.1 06/13/2014 ABNER HAMILTON Ot 780.60 06/19/2014 JEAN CLAUDE SCHWARTZ, FERNY Guerrero Ot V58.81 06/19/2014 JEAN CLAUDE SCHWARTZ, FERNY Guerrero Ot V58.81 07/17/2014 JEAN CLAUDE SCHWARTZ, FERNY Guerrero Ot V58.81 07/17/2014 JEAN CLAUDE SCHWARTZ, FERNY Guerrero Ot V58.81 07/17/2014 JEAN CLAUDE SCHWARTZ, FERNY Guerrero Ot V58.81 07/17/2014 JEAN CLAUDE SCHWARTZ, FERNY Guerrero Ot V58.81 07/18/2014 JEAN CLAUDE SCHWARTZ, FERNY Guerrero Ot V58.81 07/18/2014 JEAN CLAUDE SCHWARTZ, FERNY Guerrero Ot V58.81 07/19/2014 JEAN CLAUDE SCHWARTZ, FERNY Guerrero Ot V58.81 07/19/2014 JEAN CLAUDE SCHWARTZ, FERNY Guerrero Ot V58.81 08/07/2014 Ot 327.26 SLEEP RELATED HYPOVENTILATION/HYPOXEMIA 08/07/2014 Ot 786.09 RESPIRATORY ABNORM NEC 08/10/2014 JEAN CLAUDE SCHWARTZ, FERNY 696.1 OTHER PSORIASIS AND SIMILAR DISORDERS 08/27/2014 JEAN CLAUDE SCHWARTZ, FERNY eCsar Ot V58.81 09/07/2014 JEAN CLAUDE SCHWARTZ, FERNY V58.69 LONG-TERM (CURRENT) USE OF OTHER MEDICATIONS 09/07/2014 JEAN CLAUDE SCHWARTZ, FERNY V74.1 TB SCREENING 09/17/2014 JEAN CLAUDE SCHWARTZ, FERNY Cesar Ot V58.81 10/15/2014 JEAN CLAUDE SCHWARTZ, FERNY Cesar Ot V58.81 FIT/ADJ VASCULAR CATHETER 10/17/2014 JEAN CLAUDE SCHWARTZ, FERNY Cesar Ot V58.81 10/17/2014 JEAN CLAUDE SCHWARTZ, FERNY Cesar Ot V58.81 10/17/2014 JEAN CLAUDE SCHWARTZ, FERNY Cesar Ot V58.81 10/17/2014 JEAN CLAUDE SCHWARTZ, FERNY Cesar Ot V58.81 10/18/2014 JEAN CLAUDE SCHWARTZ, FERNY Cesar Ot V58.81 11/21/2014 JEAN CLAUDE SCHWARTZ, FERNY Cesar Ot V58.81 11/29/2014 JEAN CLAUDE SCHWARTZ, FERNY Cesar Ot V58.81 12/26/2014 JEAN CLAUDE SCHWARTZ, FERNY Cesar Ot V58.81 01/15/2015 JEAN CLAUDE SCHWARTZ, FERNY Cesar Ot V58.81 FIT/ADJ VASCULAR CATHETER 01/23/2015 JEAN CLAUDE SCHWARTZ, FERNY F Ot V58.81 01/23/2015 JEAN CLAUDE SCHWARTZ, FERNY Cesar Ot V58.81 01/23/2015 JEAN CLAUDE SCHWARTZ, FERNY F Ot V58.81 01/24/2015 JEAN CLAUDE SCHWARTZ, FERNY F Ot V58.81 02/20/2015 JEAN CLAUDE SCHWARTZ, FERNY F Ot V58.81 02/27/2015 JEAN CLAUDE SCHWARTZ, FERNY Cesar Ot V58.81 FIT/ADJ VASCULAR CATHETER 03/12/2015 JEAN CLAUDE SCHWARTZ, FERNY Cesar Ot L08.9 03/12/2015 JEAN CLAUDE SCHWARTZ, FERNY Cesar Ot Z45.2 03/21/2015 Ot M54.15 03/21/2015 Ot M62.830 03/26/2015 Ot M54.15 03/26/2015 Ot M62.830 04/05/2015 JEAN CLAUDE SCHWARTZ, FERNY Guerrero Ot L08.9 04/05/2015 JEAN CLAUDE SCHWARTZ, FERNY Guerrero Ot Z45.2 04/16/2015 Ot M54.15 04/16/2015 Ot M62.830 04/23/2015 Ot M54.15 04/23/2015 Ot M62.830 04/29/2015 Ot M54.15 04/29/2015 Ot M62.830 04/29/2015 JEAN CLAUDE SCHWARTZ, FERNY Guerrero Ot L08.9 04/29/2015 JEAN CLAUDE SCHWARTZ, FERNY Guerrero Ot Z45.2 05/03/2015 JEAN CLAUDE SCHWARTZ, FERNY Guerrero Ot L08.9 05/03/2015 JEAN CLAUDE SCHWARTZ, FERNY Guerrero Ot Z45.2 05/21/2015 JEAN CLAUDE SCHWARTZ, FERNY Guerrero Ot L08.9 05/21/2015 JEAN CLAUDE SCHWARTZ, FERNY Guerrero Ot Z45.2 05/30/2015 JEAN CLAUDE SCHWARTZ, FERNY Guerrero Ot L08.9 LOCAL INFECTION OF THE SKIN AND SUBCUTAN 05/30/2015 JEAN CLAUDE SCHWARTZ, FERNY Guerrero Ot Z45.2 ENCOUNTER FOR ADJUSTMENT AND MANAGEMENT 06/07/2015 JEAN CLAUDE SCHWARTZ, FERNY Guerrero Ot L08.9 06/07/2015 JEAN CLAUDE SCHWARTZ, FERNY Guerrero Ot Z45.2 06/07/2015 JEAN CLAUDE SCHWARTZ, FERNY Guerrero Ot L08.9 06/07/2015 JEAN CLAUDE SCHWARTZ, FERNY Guerrero Ot Z45.2 06/07/2015 JEAN CLAUDE SCHWARTZ, FERNY Guerrero Ot L08.9 06/07/2015 JEAN CLAUDE SCHWARTZ, FERNY Guerrero Ot Z45.2 06/10/2015 JEAN CLAUDE SCHWARTZ, FERNY Guerrero Ot L08.9 06/10/2015 JEAN CLAUDE SCHWARTZ, FERNY Guerrero Ot Z45.2 06/21/2015 Ot M54.15 06/21/2015 Ot M62.830 06/21/2015 ROHAN MANUEL DO Ot M54.9 07/03/2015 JEAN CLAUDE SCHWARTZ, FERNY Guerrero Ot L08.9 07/03/2015 JEAN CLAUDE SCHWARTZ, FERNY Guerrero Ot Z45.2 07/15/2015 Ot M54.15 07/15/2015 Ot M62.830 07/15/2015 ROHAN MANUEL DO Ot M54.9 07/15/2015 VEDIZ, NICOLAS H PAC Ot Z51.81 07/15/2015 VEDIZ, NICOLAS H PAC Ot Z79.899 07/15/2015 JEAN CLAUDE SCHWARTZ, FERNY Guerrero Ot L08.9 07/15/2015 JEAN CLAUDE SCHWARTZ, FERNY Guerrero Ot Z45.2 07/15/2015 RAQUEL SCHWARTZ, ROHAN Hernandez Ot E11.621 07/15/2015 RAQUEL SCHWARTZ, ROHAN Hernandez Ot L97.512 07/18/2015 MAR REYEZ, ROHAN Siu Ot M54.9 07/22/2015 Ot M54.15 07/22/2015 Ot M62.830 07/22/2015 MAR REYEZ, ROHAN Siu Ot M54.9 07/22/2015 VEDIZ, NICOLAS H PAC Ot Z51.81 07/22/2015 VEDIZ, NICOLAS H PAC Ot Z79.899 07/22/2015 JEAN CLAUDE SCHWARTZ, FERNY Guerrero Ot L08.9 07/22/2015 JEAN CLAUDE SCHWARTZ, FERNY Guerrero Ot Z45.2 07/22/2015 RAQUEL SCHWARTZ, ROHAN Hernandez Ot E11.621 07/22/2015 RAQUEL SCHWARTZ, ROHAN Hernandez Ot L97.512 07/22/2015 RAQUEL SCHWARTZ, ROHAN Hernandez Ot I73.9 07/22/2015 Ot M54.15 07/22/2015 Ot M62.830 07/22/2015 MAR REYEZ, ROHAN Siu Ot M54.9 07/22/2015 VEDIZ, NICOLAS H PAC Ot Z51.81 07/22/2015 VEDIZ, NICOLAS H PAC Ot Z79.899 07/22/2015 JEAN CLAUDE SCHWARTZ, FERNY Guerrero Ot L08.9 07/22/2015 JEAN CLAUDE SCHWARTZ, FERNY Guerrero Ot Z45.2 07/22/2015 RAQUEL SCHWARTZ, ROHAN Hernandez Ot E11.621 07/22/2015 RAQUEL SCHWARTZ, ROHAN Hernandez Ot L97.512 07/22/2015 RAQUEL SCHWARTZ, ROHAN Hernandez Ot I73.9 07/24/2015 Ot M54.15 07/24/2015 Ot M62.830 08/02/2015 JEAN CLAUDE SCHWARTZ, FERNY Guerrero Ot L08.9 08/02/2015 JEAN CLAUDE SCHWARTZ, FERNY Guerrero Ot Z45.2 08/15/2015 JEAN CLAUDE SCHWARTZ, FERNY Guerrero Ot L08.9 08/15/2015 FERNY SILVERIO MD, Ot Z45.2 08/15/2015 ROHAN GARCÍA MD Ot I73.9 08/16/2015 ROHAN GARCÍA MD Ot I73.9 08/30/2015 FERNY SILVERIO MD, Ot L08.9 08/30/2015 FERNY SILVERIO MD, Ot Z45.2 09/05/2015 FERNY SILVERIO MD, Ot L08.9 LOCAL INFECTION OF THE SKIN AND SUBCUTAN 09/05/2015 FERNY SILVERIO MD, Ot Z45.2 ENCOUNTER FOR ADJUSTMENT AND MANAGEMENT 10/04/2015 FERNY SILVERIO MD, Ot L08.9 LOCAL INFECTION OF THE SKIN AND SUBCUTAN 10/04/2015 FERNY SILVERIO MD, Ot Z45.2 ENCOUNTER FOR ADJUSTMENT AND MANAGEMENT 10/07/2015 FERNY SILVERIO MD, Ot L08.9 LOCAL INFECTION OF THE SKIN AND SUBCUTAN 10/07/2015 FERNY SILVERIO MD, Ot Z45.2 ENCOUNTER FOR ADJUSTMENT AND MANAGEMENT 10/08/2015 NICOLAS BRANDON PAC Ot Z51.81 ENCOUNTER FOR THERAPEUTIC DRUG LEVEL MON 10/08/2015 NICOLAS BRANDON PAC Ot Z79.899 OTHER CHECKERER HAND (CURRENT) 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 10/22/2015 ROHAN GARCÍA MD Ot I73.9 PERIPHERAL VASCULAR DISEASE, UNSPECIFIED 11/04/2015 FERNY SILVERIO MD, Ot L08.9 LOCAL INFECTION OF THE SKIN AND SUBCUTAN 11/04/2015 FERNY SILVERIO MD Ot Z45.2 ENCOUNTER FOR ADJUSTMENT AND MANAGEMENT 11/21/2015 ROHAN GARCÍA MD Ot I73.9 PERIPHERAL VASCULAR DISEASE, UNSPECIFIED 12/04/2015 FERNY SILVERIO MD, Ot L08.9 LOCAL INFECTION OF THE SKIN AND SUBCUTAN 12/04/2015 FERNY SILVERIO MD Ot Z45.2 ENCOUNTER FOR ADJUSTMENT AND MANAGEMENT 12/12/2015 FERNY SILVERIO MD, Ot L08.9 LOCAL INFECTION OF THE SKIN AND SUBCUTAN 12/12/2015 FERNY SILVERIO MD Ot Z45.2 ENCOUNTER FOR ADJUSTMENT AND MANAGEMENT 12/16/2015 Ot M54.15 RADICULOPATHY, THORACOLUMBAR REGION 12/16/2015 Ot M62.830 MUSCLE SPASM OF BACK 12/27/2015 FERNY SILVERIO MD, Ot L08.9 LOCAL INFECTION OF THE SKIN AND SUBCUTAN 12/27/2015 FERNY SILVERIO MD, Ot Z45.2 ENCOUNTER FOR ADJUSTMENT AND MANAGEMENT 01/01/2016 FERNY SILVERIO MD, Ot L08.9 LOCAL INFECTION OF THE SKIN AND SUBCUTAN 01/01/2016 FERNY SILVERIO MD, Ot Z45.2 ENCOUNTER FOR ADJUSTMENT AND MANAGEMENT 01/02/2016 FERNY SILVERIO MD, Ot L08.9 LOCAL INFECTION OF THE SKIN AND SUBCUTAN 01/02/2016 FERNY SILVERIO MD, Ot Z45.2 ENCOUNTER FOR ADJUSTMENT AND MANAGEMENT 01/05/2016 FERNY SILVERIO MD, Ot L08.9 LOCAL INFECTION OF THE SKIN AND SUBCUTAN 01/05/2016 FERNY SILVERIO MD, Ot Z45.2 ENCOUNTER FOR ADJUSTMENT AND MANAGEMENT 01/24/2016 Ot M54.15 RADICULOPATHY, THORACOLUMBAR REGION 01/24/2016 Ot M62.830 MUSCLE SPASM OF BACK 01/31/2016 FERNY SILVERIO MD Ot L08.9 LOCAL INFECTION OF THE SKIN AND SUBCUTAN 01/31/2016 FERYN SILVERIO MD Ot Z45.2 ENCOUNTER FOR ADJUSTMENT AND MANAGEMENT 01/31/2016 FERNY SILVERIO MD, Ot L08.9 LOCAL INFECTION OF THE SKIN AND SUBCUTAN 01/31/2016 FERNY SILVERIO MD Ot Z45.2 ENCOUNTER FOR ADJUSTMENT AND MANAGEMENT 02/04/2016 LUCAS SCHWARTZ, DIANA Hernandez Ot M86.9 OSTEOMYELITIS, UNSPECIFIED 02/05/2016 LUCAS SCHWARTZ, DIANA Hernandez Ot M86.9 OSTEOMYELITIS, UNSPECIFIED 02/06/2016 LUCAS SCHWARTZ, DIANA Hernandez Ot M86.9 OSTEOMYELITIS, UNSPECIFIED 02/06/2016 LUCAS SCHWARTZ, DIANA Hernandez Ot M86.9 OSTEOMYELITIS, UNSPECIFIED 02/07/2016 LUACS SCHWARTZ, DIANA Hernandez Ot M86.9 OSTEOMYELITIS, UNSPECIFIED 02/08/2016 LUCAS SCHWARTZ, DIANA Hernandez Ot M86.9 OSTEOMYELITIS, UNSPECIFIED 02/09/2016 LUCAS SCHWARTZ, DIANA Hernandez Ot M86.9 OSTEOMYELITIS, UNSPECIFIED 02/10/2016 LUCAS SCHWARTZ, DIANA Hernandez Ot M86.9 OSTEOMYELITIS, UNSPECIFIED 02/11/2016 LUCAS SCHWARTZ, DIANA Hernandez Ot M86.9 OSTEOMYELITIS, UNSPECIFIED 02/12/2016 LUCAS SCHWARTZ, DIANA A Ot M86.9 OSTEOMYELITIS, UNSPECIFIED 02/13/2016 LUCAS SCHWARTZ, DIANA A Ot M86.9 OSTEOMYELITIS, UNSPECIFIED 02/13/2016 LUCAS SCHWARTZ, DIANA A Ot M86.9 OSTEOMYELITIS, UNSPECIFIED 02/14/2016 LUCAS SCHWARTZ, DIANA A Ot M86.9 OSTEOMYELITIS, UNSPECIFIED 02/15/2016 LUCAS SCHWARTZ, DIANA A Ot M86.9 OSTEOMYELITIS, UNSPECIFIED 02/16/2016 LUCAS SCHWARTZ, DIANA A Ot M86.9 OSTEOMYELITIS, UNSPECIFIED 02/17/2016 LUCAS SCHWARTZ, DIANA A Ot M86.9 OSTEOMYELITIS, UNSPECIFIED 02/18/2016 LUCAS SCHWARTZ, DIANA A Ot M86.9 OSTEOMYELITIS, UNSPECIFIED 02/19/2016 LUCAS SCHWARTZ, DIANA A Ot M86.9 OSTEOMYELITIS, UNSPECIFIED 02/20/2016 LUCAS SCHWARTZ, DIANA A Ot M86.9 OSTEOMYELITIS, UNSPECIFIED 02/21/2016 LUCAS SCHWARTZ, DIANA A Ot M86.9 OSTEOMYELITIS, UNSPECIFIED 02/22/2016 LUCAS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 measurement (enzymatic activity/volume ) 29 U/L 0-55 Serum or plasma protein measurement (mass/volume) 8.4 g/dL 6.4-8.2 Serum or plasma albumin measurement (mass/volume) 4.5 g/dL 3.2-4.5 Serum or plasma creatine kinase measurement (enzymatic activity/volume) - 03/20 09:13 Serum or plasma creatine kinase measurement (enzymatic activity/volume) 202 U/L 30-200 Serum or plasma C reactive protein measurement (mass/volume) - 03/20/16 09:13 Serum or plasma C reactive protein measurement (mass/volume) 0.39 mg /dL 0.00-0.50 Complete blood count (CBC) with automated white blood cell (WBC) differential - 03/27/16 09:05 Blood leukocytes automated count (number/volume) 4.0 10*3/uL 4.3-11.0 Blood erythrocytes automated count (number/volume) 3.86 10*6/uL 4.35-5.85 Venous blood hemoglobin measurement (mass/volume) 12.1 g/dL 13.3-17.7 Blood hematocrit (volume fraction) 37 % 40-54 Automated erythrocyte mean corpuscular volume 95 [foz_us] 80-99 Automated erythrocyte mean corpuscular hemoglobin (mass per erythrocyte) 31 pg 25-34 Automated erythrocyte mean corpuscular hemoglobin concentration measurement ( mass/volume) 33 g/dL 32-36 Automated erythrocyte distribution width ratio 13.2 % 10.0-14.5 Automated blood platelet count (count/volume) 238 10*3/uL 130-400 Automated blood platelet mean volume measurement 9.8 [foz_us] 7.4-10.4 Automated blood neutrophils/100 leukocytes 51 % 42-75 Automated blood lymphocytes/100 leukocytes 34 % 12-44 Blood monocytes/100 leukocytes 12 % 0-12 Automated blood eosinophils/100 leukocytes 3 % 0-10 Automated blood basophils/100 leukocytes 0 % 0-10 Blood neutrophils automated count (number/volume) 2.0 10*3 1.8-7.8 Blood lymphocytes automated count (number/volume) 1.4 10*3 1.0-4.0 Blood monocytes automated count (number/volume) 0.5 10*3 0.0-1.0 Automated eosinophil count 0.1 10*3/uL 0.0-0.3 Automated blood basophil count (count/volume) 0.0 10*3/uL 0.0-0.1 Erythrocyte sedimentation rate by westergren method - 03/27/16 09:05 Erythrocyte sedimentation rate by westergren method 69 mm 0-30 Whole blood basic metabolic panel - 03/27/16 09:05 Serum or plasma sodium measurement (moles/volume) 136 mmol/L 135-145 Serum or plasma potassium measurement (moles/volume) 4.6 mmol/L 3.6-5.0 Serum or plasma chloride measurement (moles/volume) 98 mmol/L 98-107 Carbon dioxide 25 mmol/L 21-32 Serum or plasma anion gap determination (moles/volume) 13 mmol/L 5-14 Serum or plasma urea nitrogen measurement (mass/volume) 18 mg/dL 7-18 Serum or plasma creatinine measurement (mass/volume) 0.87 mg/dL 0.60-1.30 Serum or plasma urea nitrogen/creatinine mass ratio 21 NRG Serum or plasma creatinine measurement with calculation of estimated glomerular filtration rate > NRG Serum or plasma glucose measurement (mass/volume) 312 mg/dL 70-105 Serum or plasma calcium measurement (mass/volume) 9.5 mg/dL 8.5-10.1 Serum or plasma creatine kinase measurement (enzymatic activity/volume) - 03/27 09:05 Serum or plasma creatine kinase measurement (enzymatic activity/volume) 166 U/L 30-200 Serum or plasma C reactive protein measurement (mass/volume) - 03/27/16 09:05 Serum or plasma C reactive protein measurement (mass/volume) 0.61 mg /dL 0.00-0.50 Complete blood count (CBC) with automated white blood cell (WBC) differential - 04/29/16 09:05 Blood leukocytes automated count (number/volume) 3.7 10*3/uL 4.3-11.0 Blood erythrocytes automated count (number/volume) 3.91 10*6/uL 4.35-5.85 Venous blood hemoglobin measurement (mass/volume) 12.1 g/dL 13.3-17.7 Blood hematocrit (volume fraction) 37 % 40-54 Automated erythrocyte mean corpuscular volume 94 [foz_us] 80-99 Automated erythrocyte mean corpuscular hemoglobin (mass per erythrocyte) 31 pg 25-34 Automated erythrocyte mean corpuscular hemoglobin concentration measurement ( mass/volume) 33 g/dL 32-36 Automated erythrocyte distribution width ratio 12.9 % 10.0-14.5 Automated blood platelet count (count/volume) 208 10*3/uL 130-400 Automated blood platelet mean volume measurement 9.8 [foz_us] 7.4-10.4 Automated blood neutrophils/100 leukocytes 57 % 42-75 Automated blood lymphocytes/100 leukocytes 28 % 12-44 Blood monocytes/100 leukocytes 12 % 0-12 Automated blood eosinophils/100 leukocytes 2 % 0-10 Automated blood basophils/100 leukocytes 0 % 0-10 Blood neutrophils automated count (number/volume) 2.1 10*3 1.8-7.8 Blood lymphocytes automated count (number/volume) 1.0 10*3 1.0-4.0 Blood monocytes automated count (number/volume) 0.4 10*3 0.0-1.0 Automated eosinophil count 0.1 10*3/uL 0.0-0.3 Automated blood basophil count (count/volume) 0.0 10*3/uL 0.0-0.1 Comprehensive metabolic panel - 04/29/16 09:05 Serum or plasma sodium measurement (moles/volume) 136 mmol/L 135-145 Serum or plasma potassium measurement (moles/volume) 4.5 mmol/L 3.6-5.0 Serum or plasma chloride measurement (moles/volume) 100 mmol/L 98-107 Carbon dioxide 25 mmol/L 21-32 Serum or plasma anion gap determination (moles/volume) 11 mmol/L 5-14 Serum or plasma urea nitrogen measurement (mass/volume) 17 mg/dL 7-18 Serum or plasma creatinine measurement (mass/volume) 0.92 mg/dL 0.60-1.30 Serum or plasma urea nitrogen/creatinine mass ratio 18 NRG Serum or plasma creatinine measurement with calculation of estimated glomerular filtration rate > NRG Serum or plasma glucose measurement (mass/volume) 295 mg/dL 70-105 Serum or plasma calcium measurement (mass/volume) 9.1 mg/dL 8.5-10.1 Serum or plasma total bilirubin measurement (mass/volume) 0.3 mg/dL 0.1-1.0 Serum or plasma alkaline phosphatase measurement (enzymatic activity/volume) 123 U/L 40-136 Serum or plasma aspartate aminotransferase measurement (enzymatic activity/ volume) 29 U/L 5-34 Serum or plasma alanine aminotransferase measurement (enzymatic activity/volume ) 24 U/L 0-55 Serum or plasma protein measurement (mass/volume) 7.8 g/dL 6.4-8.2 Serum or plasma albumin measurement (mass/volume) 4.4 g/dL 3.2-4.5 Complete blood count (CBC) with automated white blood cell (WBC) differential - 05/27/16 09:40 Blood leukocytes automated count (number/volume) 3.8 10*3/uL 4.3-11.0 Blood erythrocytes automated count (number/volume) 3.94 10*6/uL 4.35-5.85 Venous blood hemoglobin measurement (mass/volume) 12.2 g/dL 13.3-17.7 Blood hematocrit (volume fraction) 37 % 40-54 Automated erythrocyte mean corpuscular volume 94 [foz_us] 80-99 Automated erythrocyte mean corpuscular hemoglobin (mass per erythrocyte) 31 pg 25-34 Automated erythrocyte mean corpuscular hemoglobin concentration measurement ( mass/volume) 33 g/dL 32-36 Automated erythrocyte distribution width ratio 12.9 % 10.0-14.5 Automated blood platelet count (count/volume) 226 10*3/uL 130-400 Automated blood platelet mean volume measurement 9.3 [foz_us] 7.4-10.4 Automated blood neutrophils/100 leukocytes 52 % 42-75 Automated blood lymphocytes/100 leukocytes 32 % 12-44 Blood monocytes/100 leukocytes 13 % 0-12 Automated blood eosinophils/100 leukocytes 3 % 0-10 Automated blood basophils/100 leukocytes 0 % 0-10 Blood neutrophils automated count (number/volume) 2.0 10*3 1.8-7.8 Blood lymphocytes automated count (number/volume) 1.2 10*3 1.0-4.0 Blood monocytes automated count (number/volume) 0.5 10*3 0.0-1.0 Automated eosinophil count 0.1 10*3/uL 0.0-0.3 Automated blood basophil count (count/volume) 0.0 10*3/uL 0.0-0.1 Bacterial urine culture - 09/29/16 11:36 Bacterial urine culture NG NR Comp. Metabolic Panel (14) - 02/02/17 10:54 Glucose, Serum 233 mg/dL 65-99 BUN 18 mg/dL 6-24 Creatinine, Serum 0.83 mg/dL 0.76-1.27 eGFR If NonAfricn Am 97 mL/min/1.73 >59 eGFR If Africn Am 112 mL/min/1.73 >59 BUN/Creatinine Ratio 22 9-20 Sodium, Serum 140 mmol/L 134-144 Potassium, Serum 5.0 mmol/L 3.5-5.2 Chloride, Serum 96 mmol/L 96-106 Carbon Dioxide, Total 30 mmol/L 18-29 Calcium, Serum 9.9 mg/dL 8.7-10.2 Protein, Total, Serum 8.2 g/dL 6.0-8.5 Albumin, Serum 4.8 g/dL 3.5-5.5 Globulin, Total 3.4 g/dL 1.5-4.5 A/G Ratio 1.4 1.2-2.2 Bilirubin, Total 0.5 mg/dL 0.0-1.2 Alkaline Phosphatase, S 102 IU/L 39-117 AST (SGOT) 23 IU/L 0-40 ALT (SGPT) 19 IU/L 0-44 Lipid Panel - 02/02/17 10:54 Cholesterol, Total 127 mg/dL 100-199 Triglycerides 362 mg/dL 0-149 HDL Cholesterol 23 mg/dL >39 VLDL Cholesterol Giovanni 72 mg/dL 5-40 LDL Cholesterol Calc 32 mg/dL 0-99 LIPID PANEL - 02/02/17 10:54 Cholesterol, Total 127 mg/dL 100-199 Triglycerides 362 mg/dL 0-149 HDL Cholesterol 23 mg/dL >39 VLDL Cholesterol Giovanni 72 mg/dL 5-40 LDL Cholesterol Calc 32 mg/dL 0-99 Comment: NRG Encounters ACCT No. Visit Date/Time Discharge Status Pt. Type Provider Facility Loc./Unit Complaint [id number] 09/07/2014 09:59:00 09/07/2014 23:59:59 CLS Outpatient JEAN CLAUDE SCHWARTZ, FERNY [id number] 06/02/2014 11:23:00 06/02/2014 23:59:59 CLS Outpatient YUDITH SHARIF APRN [id number] 04/27/2014 08:35:00 04/27/2014 23:59:59 CLS Outpatient FERNY SILVERIO MD [id number] 04/24/2014 10:55:00 04/24/2014 23:59:59 CLS Outpatient FERNY SILVERIO MD [id number] 03/14/2014 12:46:00 03/14/2014 23:59:59 CLS Outpatient ANGELICA CONLEY DO [id number] 02/19/2014 09:16:00 02/19/2014 23:59:59 CLS Outpatient FERNY SILVERIO MD [id number] 01/22/2014 10:23:00 01/22/2014 23:59:59 CLS Outpatient FERNY SILVERIO MD [id number] 01/22/2014 10:23:00 01/22/2014 23:59:59 CLS Outpatient FERNY SILVERIO MD [id number] 10/17/2013 16:30:00 10/17/2013 23:59:59 CLS Outpatient FERNY SILVERIO MD [id number] 10/17/2013 16:30:00 10/17/2013 23:59:59 CLS Outpatient FERNY SILVERIO MD [id number] 07/03/2013 08:55:00 07/03/2013 23:59:59 CLS Outpatient FERNY SILVERIO MD [id number] 06/14/2013 11:28:00 06/14/2013 23:59:59 CLS Outpatient ANGELICA CONLEY DO [id number] 04/10/2013 10:59:00 04/10/2013 23:59:59 CLS Outpatient ANGELICA CONLEY DO [id number] 03/14/2013 14:49:00 03/14/2013 23:59:59 CLS Outpatient FERNY SILVERIO MD [id number] 02/01/2013 16:28:00 02/01/2013 23:59:59 CLS Outpatient ANGELICA CONLEY DO [id number] 08/23/2012 08:32:00 08/23/2012 23:59:59 CLS Outpatient FERNY SILVERIO MD [id number] 06/13/2012 15:00:00 06/13/2012 23:59:59 CLS Outpatient FERNY SILVERIO MD [id number] 05/16/2012 08:58:00 05/16/2012 23:59:59 CLS Outpatient ANGELICA CONLEY DO [id number] 04/28/2012 13:21:00 04/28/2012 23:59:59 CLS Outpatient [id number] 03/22/2012 15:13:00 03/22/2012 23:59:59 CLS Outpatient [id number] 01/25/2013 15:24:00 Document Registration [id number] 11/24/2012 10:56:00 Document Registration [id number] 11/24/2012 10:56:00 Document Registration [id number] 08/22/2012 14:59:00 Document Registration [id number] 02/03/2017 07:06:00 Document Registration [id number] 04/18/2018 13:20:00 04/18/2018 23:59:59 CLS Outpatient FERNY SILVERIO MD [facility] [id number] 02/02/2017 10:40:00 Document Registration [id number] 05/09/2018 12:55:00 05/09/2018 23:59:59 CLS Outpatient FERNY SILVERIO MD [facility] [place] [id number] 02/03/2018 13:07:00 02/27/2018 00:01:00 DIS Outpatient FERNY SILVERIO MD [facility] [place] [id number] 01/03/2018 12:21:00 01/18/2018 00:01:00 DIS Outpatient FERNY SIVLERIO MD [facility] [place] [id number] 11/15/2017 00:10:00 11/15/2017 23:59:59 CLS Preadmit FERNY SILVERIO MD [facility] Z95.828 [id number] 09/14/2017 13:07:00 11/14/2017 00:01:00 DIS Outpatient FERNY SILVERIO MD [facility] Z95.828 [id number] 10/13/2017 19:40:00 10/13/2017 20:42:00 DIS Emergency JULIAN GARCIA APRN [facility] [id number] 09/17/2017 13:53:00 09/17/2017 23:59:59 CLS Outpatient FERNY SILVERIO MD [facility] RAD Z00.00 MEDICARE ANNUAL WELLNESS VISIT [id number] 07/19/2017 12:29:00 08/15/2017 00:01:00 DIS Outpatient FERNY SILVERIO MD [facility] Z95.828 [id number] 05/14/2017 13:10:00 05/14/2017 23:59:59 CLS Outpatient CYN RICARDO MD [facility] RAD M54.16 LUMBAR RADIC [id number] 04/19/2017 13:15:00 04/29/2017 11:06:00 DIS Outpatient FERNY SILVERIO MD [facility] UNSPECIFIED LOCAL INFECTION OF SKIN [id number] 02/22/2017 08:12:00 02/27/2017 00:01:00 DIS Outpatient FERNY SILVERIO MD [facility] UNSPECIFIED LOCAL INFECTION OF SKIN [id number] 01/21/2017 12:59:00 01/25/2017 00:01:00 DIS Outpatient FERNY SILVERIO MD [facility] UNSPECIFIED LOCAL INFECTION OF SKIN [id number] 12/04/2016 08:12:00 12/04/2016 23:59:59 CLS Outpatient NICOLÁS ORTIZ [facility] RAD CAROTID ARTERIAL DISEASE I65.23 [id number] 09/29/2016 11:04:00 09/29/2016 23:59:59 CLS Outpatient DILLAN SCHWARTZ FACCNEIL FACP CCDS [facility] CATH DM,ANGINA, SOB [id number] 09/22/2016 09:05:00 09/27/2016 00:01:00 DIS Outpatient FERNY SILVERIO MD [facility] UNSPECIFIED LOCAL INFECTION OF SKIN [id number] 05/27/2016 09:23:00 05/27/2016 23:59:59 CLS Outpatient NICOLAS BRANDON [facility] PSORIASIS VULGARIS [id number] 05/01/2016 00:10:00 05/01/2016 23:59:59 CLS Preadmit DIANA ZAVALA MD [facility] SDC INFECTION IN R FOOT [id number] 03/30/2016 09:04:00 04/30/2016 00:01:00 DIS Outpatient DIANA ZAVALA MD [facility] SDC INFECTION IN R FOOT [id number] 04/29/2016 08:51:00 04/29/2016 23:59:59 CLS Outpatient NICOLAS BRANDON PAC [facility] SDC PSORIASIS VULGARIS,CHECKERER HAND 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 [id number] 01/01/2016 13:04:00 01/02/2016 00:01:00 DIS Outpatient FERNY SILVERIO MD [facility] UNSPECIFIED LOCAL INFECTION OF SKIN [id number] 10/04/2015 13:10:00 10/04/2015 23:59:59 CLS Outpatient NICOLAS BRANDON PAC [facility] LAB LONG-TERM MED USE [id number] 08/30/2015 13:10:00 09/05/2015 00:01:00 DIS Outpatient FERNY SILVERIO MD [facility] SD UNSPECIFIED LOCAL INFECTION OF SKIN [id number] 07/15/2015 09:36:00 07/15/2015 23:59:59 CLS Outpatient ROHAN GARCÍA MD [facility] LAB PERIPHERALVASCULAR [id number] 06/12/2015 12:08:00 06/12/2015 23:59:59 CLS Outpatient ROHAN GARCÍA MD [facility] RAD DIABETIV FOOT ULCER [id number] 05/03/2015 13:03:00 05/30/2015 00:01:00 DIS Outpatient FERNY SILVERIO MD [facility] UNSPECIFIED LOCAL INFECTION OF SKIN [id number] 05/03/2015 12:53:00 05/03/2015 23:59:59 CLS Outpatient NICOLAS BRANDON PAC [facility] LAB MED MONITOR [id number] 04/11/2015 10:17:00 04/11/2015 23:59:59 CLS Outpatient ROHAN MANUEL DO [facility] CARD T8 SIGNAL DISTURBANCE [id number] 01/23/2015 13:04:00 02/27/2015 00:01:00 DIS Outpatient FERNY SILVERIO MD [facility] VASCULAR CATHETER [id number] 12/26/2014 13:05:00 01/15/2015 00:01:00 DIS Outpatient FERNY SILVERIO MD [facility] VASCULAR CATHETER [id number] 07/17/2014 09:42:00 07/17/2014 23:59:59 CLS Outpatient FERNY SILVERIO MD [facility] VASCULAR CATHETER [id number] 06/19/2014 08:16:00 06/19/2014 00:01:00 DIS Outpatient FERNY SILVERIO MD [facility] [id number] 06/13/2014 12:31:00 06/13/2014 16:13:00 DIS Emergency ABNER HAMILTON [facility] ER [id number] 02/21/2014 08:02:00 03/20/2014 00:01:00 DIS Outpatient [id number] 02/04/2014 20:41:00 02/04/2014 23:47:00 DIS Emergency DELL TINAJERO MD [facility] ER [id number] 11/22/2013 10:05:00 11/26/2013 00:01:00 DIS Outpatient [id number] 07/31/2013 07:22:00 08/01/2013 00:01:00 DIS Outpatient FERNY SILVERIO MD [facility] [id number] 04/04/2013 09:19:00 05/02/2013 00:01:00 DIS Outpatient [id number] 01/04/2013 08:56:00 02/01/2013 00:01:00 DIS Outpatient [id number] 09/29/2012 08:48:00 10/05/2012 00:01:00 DIS Outpatient [id number] 03/18/2015 12:08:00 Document Registration [id number] 11/01/2014 10:47:00 Document Registration [id number] 11/01/2014 10:47:00 Document Registration [id number] 08/06/2014 21:10:00 Document Registration
[2018-05-16 07:27] LABS: INR 1.1 (0.8-1.4); PROTHROMBIN TIME PATIENT 13.8 SEC (12.2-14.7)
[2018-05-16 07:30] LABS: ALANINE AMINOTRANSFERASE 24 U/L (0-55); ALBUMIN 4.5 GM/DL (3.2-4.5); ALKALINE PHOSPHATASE 119 U/L (40-136); BILIRUBIN,TOTAL 0.5 MG/DL (0.1-1.0); BUN/CREATININE RATIO 19; CALCIUM 9.6 MG/DL (8.5-10.1); CARBON DIOXIDE 27 MMOL/L (21-32); CHLORIDE 99 MMOL/L (98-107); CREATININE SERUM 0.83 MG/DL (0.60-1.30); GFR ESTIMATED > 60; GLUCOSE 221 MG/DL (70-105); MAGNESIUM 1.8 MG/DL (1.8-2.4); POTASSIUM 4.1 MMOL/L (3.6-5.0); SODIUM 138 MMOL/L (135-145); TOTAL PROTEIN 8.3 GM/DL (6.4-8.2)
[2018-05-16 07:37] LABS: MYOGLOBIN SERUM 40.2 NG/ML (10.0-92.0)
--- NOTE | 2018-05-16 07:38 | Diagnostic Imaging Report ---
Indication: Left-sided chest pain. Comparison: 10/13/2017. Findings: Single view of the chest demonstrates clear lungs bilaterally. The heart is normal. There is no pneumothorax. The osseous structures are normal. Impression: Negative chest. Dictated by: Dictated on workstation # [id number]
[2018-05-16] MEDS ORDERED: KETOROLAC 30 MG/ML VIAL IVP STA (07:56)
[2018-05-16 09:59] LABS: MYOGLOBIN SERUM 44.2 NG/ML (10.0-92.0)
[2018-05-16 10:22] VITALS: BP 115/66
== END 2018-05-16 10:21 | disposition home or self-care (01) ==
LOC: EDUNIT# 06:41 → ER 06:43
DX: M54.2 Cervicalgia (principal); R07.9 Chest pain, unspecified; J44.9 Chronic obstructive pulmonary disease, unspecified; I10 Essential (primary) hypertension; E11.9 Type 2 diabetes mellitus without complications; F41.9 Anxiety disorder, unspecified; E78.00 Pure hypercholesterolemia, unspecified; F17.210 Nicotine dependence, cigarettes, uncomplicated; Z87.01 Personal history of pneumonia (recurrent); Z87.39 Personal history of other diseases of the musculoskeletal system and connective tissue; Z95.9 Presence of cardiac and vascular implant and graft, unspecified; Z79.82 Long term (current) use of aspirin; Z79.4 Long term (current) use of insulin
CPT/HCPCS: 36415; 71045; 80053; 83605; 83735; 83874; 84484; 85025; 85379; 85610; 85730; 87040; 93005; 93041; 94640

== ENCOUNTER 2018-08-30 10:54 | Outpatient (RCR) | payer MEDICARE ==
[2018-06-06 13:15] VITALS: BP 135/67
[2018-07-04 12:55] VITALS: BP 135/67
[2018-08-01 13:15] VITALS: BP 129/70
[~2018-08-30] VITALS: Ht 185.4 cm; Wt 119.7 kg
[2018-08-30 10:54] VITALS: BP 153/82
[~2018-08-30 10:54] MED LIST changes: -AMLO10TA6 PO; +AMLO10TA7 PO; +CITA40TA11
== END 2018-09-04 | disposition home or self-care (01) ==
LOC: SDC 10:54
PROVIDERS: ATTEND Internal Medicine
DX: Z45.2 Encounter for adjustment and management of vascular access device (principal)
CPT/HCPCS: 96523

== ENCOUNTER → 2018-11-03 | Outpatient (CLI) | payer MEDICARE ==
--- NOTE | 2018-11-03 14:08 | Diagnostic Imaging Report ---
INDICATION: 60 pack year history of smoking COMPARISON: 09/17/2017 TECHNIQUE: Routine noncontrast low-dose CT of the chest was performed under department protocol for lung screening. Auto Exposure Controls were utilized during the CT exam to meet ALARA standards for radiation dose reduction. FINDINGS: Evaluation of the lung colvin demonstrates no suspicious pulmonary nodule or mass. Note is again made of background mild emphysematous disease. There is no focal consolidation, large effusion, nor pneumothorax. Cardiomediastinal structures show normal heart size. There is no large pericardial effusion. Note is again made of moderate calcified coronary atherosclerosis. There are probable indwelling stents within the right coronary artery, although evaluation is obscured by motion artifact. No pathologically enlarged or morphologically abnormal adenopathy is seen within the mediastinum, molina, nor axilla on this noncontrast exam. Osseous structures show no acute abnormalities. Included portions of the upper abdomen are unremarkable as well. IMPRESSION: 1. No suspicious pulmonary nodules or masses. Continued follow up with annual low dose CT chest is recommended. 2. Moderate calcified coronary atherosclerosis with probable indwelling coronary artery stents. 3. Background mild emphysematous disease. LungRads category: 1-S. Modifiers: As above. Dictated by: Dictated on workstation # [id number]
== END ==
LOC: RAD 12:03
PROVIDERS: ATTEND Internal Medicine
DX: Z12.2 Encounter for screening for malignant neoplasm of respiratory organs (principal); I25.10 Atherosclerotic heart disease of native coronary artery without angina pectoris; J43.9 Emphysema, unspecified; Z87.891 Personal history of nicotine dependence

== ENCOUNTER 2019-04-04 13:10 | Outpatient (RCR) | payer MEDICARE ==
[2019-01-31 13:00] VITALS: BP 148/72
[2019-02-28 12:55] VITALS: BP 131/77
[~2019-04-04] VITALS: Ht 185.4 cm; Wt 90.0 kg
[2019-04-04] MEDS ORDERED: CATHETER FLUSH 10 ML SYR IV PRN (13:15)
[2019-04-04 13:20] VITALS: BP 167/84
[2019-04-09] MEDS ORDERED: ACHD5005 PO (02:12)
== END 2019-05-01 | disposition home or self-care (01) ==
LOC: SDC 13:10
PROVIDERS: ATTEND Internal Medicine
DX: Z45.2 Encounter for adjustment and management of vascular access device (principal)
CPT/HCPCS: 77385; 96523

== ENCOUNTER 2019-04-08 23:08 | Emergency (ER) | payer MEDICARE ==
[~2019-04-08] VITALS: Ht 185.4 cm; Wt 120.0 kg
[2019-04-08] MEDS ORDERED: NS IV 1000 ML 1,000 ML IV ONE (23:36)
[2019-04-08] MEDS ORDERED: HYDROcodone/APAP 5 MG/325 MG (LORTAB) TAB PO ONE (23:45)
[2019-04-08] MEDS ORDERED: inSUlin (REGULAR) HUMAN 1 UNIT/0.01 ML (CHARGE PER UNIT) SC ONE (23:45)
--- NOTE | 2019-04-08 23:50 | ED Fall/Injury ---
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 He has a history of psoriatic arthritis and takes MS Contin 15 mg twice a day as well as 10 mg oxycodone 3 times a day. His last dose was 2 hours prior to arrival. This fall occurred about 1:00 in the afternoon. He's had difficulty with ambulation and increasing swelling around the left knee. Is also having pain in the arch of his foot anterior to the ankle. No swelling in the foot. No ice or other pain medicines besides his prescribed. No previous history of injury to the foot or knee. He is diabetic but not on a blood thinner. Allergies and Home Medications Allergies Coded Allergies: NKANo Known Allergies (Verified Allergy, Unknown, 12/21/05) No Known Drug Allergies (Unverified , 10/19/08) Home Medications Alprazolam 1 Mg Tablet, 1 MG PO TID, (Reported) Amlodipine Besylate 10 Mg Tablet, 10 MG PO DAILY, (Reported) Aspirin 81 Mg Tab.chew, 81 MG PO DAILY, (Reported) Atorvastatin Calcium 40 Mg Tablet, 40 MG PO HS, (Reported) Carisoprodol 350 Mg Tablet, 350 MG PO HS, (Reported) Citalopram Hydrobromide 40 Mg Tablet, 40 MG PO DAILY, (Reported) Duloxetine Hcl 60 Mg Capsule.dr, 60 MG PO HS, (Reported) Gemfibrozil 600 Mg Tablet, 600 MG PO BID, (Reported) Hydrocodone Bit/Acetaminophen 1 Each Tablet, 1 TAB PO Q6H PRN for PAIN-MODERATE, (Reported) Insulin Glargine,Hum.rec.anlog 300 Unit/1 Ml Insuln.pen, 150 UNIT SQ HS, (Reported) Insulin Lispro 100 Unit/1 Ml Insuln.pen, 30 ML SQ TIDAC, (Reported) Metformin Hcl 1,000 Mg Tablet, 1,000 MG PO BID WITH MEALS, (Reported) Mirtazapine 30 Mg Tablet, 30 MG PO HS, (Reported) Morphine Sulfate 30 Mg Tablet.er, 30 MG PO Q8H, (Reported) Pregabalin 225 Mg Capsule, 225 MG PO BID, (Reported) Patient Home Medication List Home Medication List Reviewed: Yes Review of Systems Review of Systems Constitutional: No chills, No diaphoresis Eyes: Denies Blindness, Denies Blurred Vision Ears, Nose, Mouth, Throat: denies ear pain, denies ear discharge Respiratory: cough; No phlegm, No short of breath Cardiovascular: No chest pain, No edema Gastrointestinal: No abdominal pain, No nausea Genitourinary: No discharge, No dysuria All Other Systems Reviewed Negative Unless Noted: Yes Past Ihabocf-Uuypeo-Ktrkgo Hx Patient Social History Drug of Choice: cannibus oil Type Used: Electronic/Vapor Former Smoker, Quit: September 29, 2013 2nd Hand Smoke Exposure: Yes Recent Foreign Travel: No Contact w/Someone Who Travel: No Recent Hopitalizations: No Immunizations Up To Date Tetanus Booster (TDap): Unknown Date of Pneumonia Vaccine: Feb 29, 2012 Date of Influenza Vaccine: Mar 13, 2016 Seasonal Allergies Seasonal Allergies: Yes Past Medical History Surgeries: Yes (BACK, KNEE, SHOULDER, RT FOOT OSTEOMYELITIS REMOVAL, LPJ) Orthopedic Respiratory: Yes Pneumonia, COPD Cardiac: Yes High Cholesterol, Hypertension Neurological: Yes Neuropathy Reproductive Disorders: No Sexually Transmitted Disease: No Genitourinary: No Gastrointestinal: No Musculoskeletal: Yes (OSTEOMYELITIS RT FOOT) Degenerate Disk Disease, Arthritis, Back Injury, Chronic Back Pain Endocrine: Yes Diabetes, Insulin dep HEENT: No Loss of Vision: Bilateral Hearing Impairment: Denies Cancer: No Psychosocial: Yes Sleep Difficulties, Anxiety Integumentary: Yes Eczema Blood Disorders: No Physical Exam Vital Signs Vital Signs - First Documented 04/08/19 23:26 Temp 36.0 Pulse 104 Resp 24 B/P (MAP) 151/119 (130) Pulse Ox 96 O2 Delivery Nasal Cannula O2 Flow Rate 3.00 Capillary Refill : Height, Weight, BMI Height: 6'1.00" Weight: 264lbs. 0.0oz. 119.452766dw; 34.7 BMI Method:Stated General Appearance: WD/WN, mild distress HEENT: PERRL/EOMI; No pharynx normal (oropharynx is dry) Neck: non-tender, full range of motion Cardiovascular: normal peripheral pulses, regular rate, rhythm Respiratory: no respiratory distress, no accessory muscle use Gastrointestinal: non tender, soft Extremities: swelling (Tenderness and mibh-sd-kildztll joint effusion over the left knee), other (and left foot acutely tender over the proximal second metatarsal) Neurologic/Psychiatric: no motor/sensory deficits, alert, normal mood/affect, oriented x 3 Skin: normal color, warm/dry [place] Coma Score Best Eye Response: (4) Open Spontaneously Best Verbal Response: (5) Oriented Best Motor Response: (6) Obeys Commands Debbie Total: 15 Progress/Results/Core Measures Results/Orders Lab Results Laboratory Tests Test 04/08/19 23:30 04/08/19 23:34 Range/Units White Blood Count 7.2 4.3-11.0 10^3/uL Red Blood Count 4.21 L 4.35-5.85 10^6/uL Hemoglobin 12.5 L 13.3-17.7 G/DL Hematocrit 39 L 40-54 % Mean Corpuscular Volume 93 80-99 FL Mean Corpuscular Hemoglobin 30 25-34 PG Mean Corpuscular Hemoglobin Concent 32 32-36 G/DL Red Cell Distribution Width 14.2 10.0-14.5 % Platelet Count 234 130-400 10^3/uL Mean Platelet Volume 10.5 H 7.4-10.4 FL Neutrophils (%) (Auto) 78 H 42-75 % Lymphocytes (%) (Auto) 11 L 12-44 % Monocytes (%) (Auto) 10 0-12 % Eosinophils (%) (Auto) 0 0-10 % Basophils (%) (Auto) 0 0-10 % Neutrophils # (Auto) 5.6 1.8-7.8 X 10^3 Lymphocytes # (Auto) 0.8 L 1.0-4.0 X 10^3 Monocytes # (Auto) 0.7 0.0-1.0 X 10^3 Eosinophils # (Auto) 0.0 0.0-0.3 10^3/uL Basophils # (Auto) 0.0 0.0-0.1 10^3/uL Sodium Level 137 135-145 MMOL/L Potassium Level 4.5 3.6-5.0 MMOL/L Chloride Level 96 L 98-107 MMOL/L Carbon Dioxide Level 23 21-32 MMOL/L Anion Gap 18 H 5-14 MMOL/L Blood Urea Nitrogen 22 H 7-18 MG/DL Creatinine 1.13 0.60-1.30 MG/DL Estimat Glomerular Filtration Rate > 60 BUN/Creatinine Ratio 19 Glucose Level 262 H 70-105 MG/DL Calcium Level 9.5 8.5-10.1 MG/DL Corrected Calcium 8.5-10.1 MG/DL Total Bilirubin 0.4 0.1-1.0 MG/DL Aspartate Amino Transf (AST/SGOT) 34 5-34 U/L Alanine Aminotransferase (ALT/SGPT) 25 0-55 U/L Alkaline Phosphatase 102 40-136 U/L C-Reactive Protein High Sensitivity 2.53 H 0.00-0.50 MG/DL Total Protein 8.6 H 6.4-8.2 GM/DL Albumin 4.6 H 3.2-4.5 GM/DL Glucometer 294 H 70-110 MG/DL My Orders Orders - MARSHA RAI Ed Iv/Invasive Line Start (04/08/19 23:36) Ns Iv 1000 Ml (Sodium Chloride 0.9%) (04/08/19 23:36) Hydrocodone/Apap 5/325 Tablet (Lortab 5 (04/08/19 23:45) Cbc With Automated Diff (04/08/19 23:36) Comprehensive Metabolic Panel (04/08/19 23:36) Hs C Reactive Protein (04/08/19 23:36) Accucheck Stat ONCE (04/08/19 23:36) Insulin (Regular) Human (Humulin R (Per (04/08/19 23:45) Knee, Left, 3 Views (04/09/19 00:01) Foot, Left, 3 Views (04/09/19 00:01) Medications Given in ED Current Medications Medications Dose Ordered Sig/Fredis Route Start Time Stop Time Status Last Admin Dose Admin Acetaminophen/ Hydrocodone Bitart 1 tab ONCE ONCE PO 04/08/19 23:45 04/08/19 23:46 DC 04/09/19 00:20 1 TAB Insulin Human Regular 5 unit ONCE ONCE SC 04/08/19 23:45 04/08/19 23:46 DC 04/09/19 00:19 5 UNIT Sodium Chloride 1,000 ml @ 0 mls/hr Q0M ONCE IV 04/08/19 23:36 04/08/19 23:37 DC 04/09/19 00:19 1,000 MLS/HR Vital Signs/I&O 04/08/19 23:26 Temp 36.0 Pulse 104 Resp 24 B/P (MAP) 151/119 (130) Pulse Ox 96 O2 Delivery Nasal Cannula O2 Flow Rate 3.00 Progress Progress Note : Time: 02:05 Progress Note When he arrived his oxygenation was poor sleeping put him back on his baseline improved his heart rate and oxygenation. Clinical exam he appeared dry so we gave him a liter of IV fluids. Plan to ice the foot wrapped in Garry bandage. With him and boot and follow up with orthopedics outpatient. Diagnostic Imaging Diagonstic Imaging: Xray Plain Films/CT/US/NM/MRI: knee (left) Comments Advanced osteoarthritis, soft tissue edema with no acute fracture. Reviewed: Reviewed by Me Diagonstic Imaging: Xray Plain Films/CT/US/NM/MRI: other (left foot) Comments Proximal portion of the second, left cuneiform demonstrates a minimally displaced fracture. Reviewed: Reviewed by Me Departure Impression Primary Impression: Fracture of cuneiform bone of foot, closed Disposition: 01 HOME, SELF-CARE Condition: Stable Departure-Patient Inst. Decision time for Depature: 02:10 Referrals: FERNY SILVERIO MD (PCP/Family) Primary Care Physician SARAI BUSH DO Patient Instructions: Knee Sprain (DC), Foot Fracture (DC) Add. Discharge Instructions: Wear the boot and obtain a wheelchair to offload the foot. Follow-up with orthopedic surgeon next week. Take an additional oxycodone 1 tablet every 6 hours as needed for breakthrough pain. Elevate the foot above the level of your heart when possible to keep the swelling down. Ice your foot and knee for 20 minutes every 4 hours for the first 2-3 days. Garry bandage to the left knee for compression until the swelling goes away. Scripts Hydrocodone Bit/Acetaminophen (Hydrocodone/Acetaminophen 5/325mg Tablet) 1 Tab Tab 1 EACH PO Q4-6HR PRN for PAIN-MODERATE MDD 10, #20 TAB 0 Refills Prov: MARSHA RAI 04/09/19 Copy Copies To 1: SARAI BUSH TITUS J Apr 08, 2019 23:49 POS
[2019-04-09 00:56] LABS: BASOPHILS % (AUTO) 0 % (0-10); EOSINOPHILS % (AUTO) 0 % (0-10); HEMATOCRIT 39 % (40-54); HEMOGLOBIN 12.5 G/DL (13.3-17.7); LYMPHOCYTES # (AUTO) 0.8 X 10^3 (1.0-4.0); LYMPHOCYTES % (AUTO) 11 % (12-44); MEAN CORPUSCULAR HEMOGLOBIN 30 PG (25-34); MEAN CORPUSCULAR HGB CONC 32 G/DL (32-36); MEAN CORPUSCULAR VOLUME 93 FL (80-99); MEAN PLATELET VOLUME 10.5 FL (7.4-10.4); MONOCYTES # (AUTO) 0.7 X 10^3 (0.0-1.0); MONOCYTES % (AUTO) 10 % (0-12); NEUTROPHILS # (AUTO) 5.6 X 10^3 (1.8-7.8); NEUTROPHILS % (AUTO) 78 % (42-75); PLATELET COUNT 234 10^3/uL (130-400); RED CELL DISTRIBUTION WIDTH 14.2 % (10.0-14.5); WHITE BLOOD COUNT 7.2 10^3/uL (4.3-11.0)
[2019-04-09 01:16] LABS: ALANINE AMINOTRANSFERASE 25 U/L (0-55); ALBUMIN 4.6 GM/DL (3.2-4.5); ALKALINE PHOSPHATASE 102 U/L (40-136); BILIRUBIN,TOTAL 0.4 MG/DL (0.1-1.0); BUN/CREATININE RATIO 19; CALCIUM 9.5 MG/DL (8.5-10.1); CARBON DIOXIDE 23 MMOL/L (21-32); CHLORIDE 96 MMOL/L (98-107); CREATININE SERUM 1.13 MG/DL (0.60-1.30); GFR ESTIMATED > 60; GLUCOSE 262 MG/DL (70-105); POTASSIUM 4.5 MMOL/L (3.6-5.0); SODIUM 137 MMOL/L (135-145); TOTAL PROTEIN 8.6 GM/DL (6.4-8.2)
[2019-04-09] MEDS ORDERED: ACHD5005 PO (02:12)
[2019-04-09 02:22] VITALS: BP 170/96
--- NOTE | 2019-04-09 05:15 | Diagnostic Imaging Report ---
INDICATION: Fall. Injury. COMPARISON: None. FINDINGS: 3 views of the left knee joint demonstrate no acute fracture or dislocation. No focal osseous lesions are seen. Large suprapatellar joint effusion is identified. The surrounding soft tissue structures are unremarkable. There are no radiopaque foreign bodies. There are mild tricompartmental osteoarthritic changes consisting of joint space narrowing with small osteophyte formations. Note is also made of chondrocalcinosis. IMPRESSION: 1. Large suprapatellar joint effusion, but no evidence of underlying acute fracture or dislocation. 2. Mild tricompartmental osteoarthritis. 3. Chondrocalcinosis. Findings may be degenerative in nature, but can also be seen with underlying CPPD. Clinical correlation advised. Dictated by: Dictated on workstation # [id number]
--- NOTE | 2019-04-09 05:19 | Diagnostic Imaging Report ---
INDICATION: Fall. COMPARISON: 04/27/2011 FINDINGS: 3 radiographic views of the left foot were obtained and show no evidence of acute fracture or dislocation. Joint spaces are maintained. Note is made of well-circumscribed lucency within the distal medial margins of the 1st metatarsal. It measures approximately 8 mm in diameter. There is suggestion of overhanging shelf. There does appear to be some overlying soft tissue swelling with calcifications in the soft tissues. No unexpected radiopaque foreign bodies are identified. IMPRESSION: 1. No evidence of acute fracture or dislocation of the left foot. 2. Well-circumscribed lucency of the 1st metatarsal with suspicious overlying soft tissue edema. Findings are suspicious for gout. Osteomyelitis is felt to be less likely, but is not entirely excluded. Clinical correlation recommended. Dictated by: Dictated on workstation # [id number]
== END 2019-04-09 02:22 | disposition home or self-care (01) ==
LOC: EDUNIT# 23:08 → ER 23:10
DX: S92.242A Displaced fracture of medial cuneiform of left foot, initial encounter for closed fracture (principal); J44.9 Chronic obstructive pulmonary disease, unspecified; I10 Essential (primary) hypertension; E78.00 Pure hypercholesterolemia, unspecified; E11.42 Type 2 diabetes mellitus with diabetic polyneuropathy; E11.69 Type 2 diabetes mellitus with other specified complication; M86.9 Osteomyelitis, unspecified; F41.9 Anxiety disorder, unspecified; L40.50 Arthropathic psoriasis, unspecified; Z87.01 Personal history of pneumonia (recurrent); Z79.82 Long term (current) use of aspirin; Z79.4 Long term (current) use of insulin; Z87.891 Personal history of nicotine dependence; W01.0XXA Fall on same level from slipping, tripping and stumbling without subsequent striking against object, initial encounter
CPT/HCPCS: 36415; 73562; 73630; 80053; 82962; 85025; 86141

== ENCOUNTER 2019-07-06 12:53 | Outpatient (RCR) | payer MEDICARE ==
[2019-05-03 13:30] VITALS: BP 139/84
[2019-06-07 13:14] VITALS: BP 163/72
[~2019-07-06] VITALS: Ht 187 cm; Wt 120.0 kg
[~2019-07-06 12:53] MED LIST changes: +ACHD5005 PO; +CATHETER FLUSH 10 ML SYR IV PRN
[2019-07-06 13:08] VITALS: BP 143/86
== END 2019-08-01 | disposition home or self-care (01) ==
LOC: SDC 12:53
PROVIDERS: ATTEND Internal Medicine
DX: Z45.2 Encounter for adjustment and management of vascular access device (principal)
CPT/HCPCS: 96523

== ENCOUNTER 2019-10-02 13:05 | Outpatient (RCR) | payer MEDICARE ==
[2019-08-04] MEDS: CATHETER FLUSH 10 ML SYR IV PRN (12:58)
[2019-08-04 13:03] VITALS: BP 156/75
[2019-09-04] MEDS: CATHETER FLUSH 10 ML SYR IV PRN (13:11)
[2019-09-04 13:31] VITALS: BP 142/76
[~2019-10-02] VITALS: Ht 182.9 cm; Wt 120.0 kg
[2019-10-02 13:03] VITALS: BP 144/78
[~2019-10-02 13:05] MED LIST changes: -CATHETER FLUSH 10 ML SYR IV PRN
== END 2019-11-02 | disposition home or self-care (01) ==
LOC: SDC 13:05
PROVIDERS: ATTEND Internal Medicine
DX: Z45.2 Encounter for adjustment and management of vascular access device (principal)
CPT/HCPCS: 77336; 96523

== ENCOUNTER → 2019-12-26 | Outpatient (CLI) | payer MEDICARE ==
[~2019-12-26] MED LIST changes: +ACHYD1T PO; +ALPR2TAB6 PO; +CARI350T27 PO; +CELE-63 PO; +CITA40TA11 PO; +CYCL7.5T27 PO; +DULO60CA59 PO; +GEMF600T8 PO; +INSU200I4 SQ; +METF-399 PO; +MORP15TA69 PO; +PREG225C7 PO
--- NOTE | 2019-12-26 12:54 | Diagnostic Imaging Report ---
INDICATION: Ulceration third toe on the right foot. FINDINGS: Amputation of the first and second digits noted. There is bony destruction of the tuft of the third distal phalanx. The interphalangeal joints appear intact. There is a deformity of the distal fourth metatarsal head which appears chronic. Mild deformity of the MP joint of the third digit noted which appears chronic as well. IMPRESSION: 1. Findings are consistent with osteomyelitis involving the tuft of the distal phalanx of the third toe. 2. Chronic deformities noted of the MP joints. Dictated by: Dictated on workstation # [id number]
== END ==
LOC: RAD 10:45
PROVIDERS: ATTEND Surgery
DX: L97.519 Non-pressure chronic ulcer of other part of right foot with unspecified severity (principal); Z89.421 Acquired absence of other right toe(s)
CPT/HCPCS: 73630

== ENCOUNTER 2020-01-01 05:34 | Outpatient (RCR) | payer MEDICARE ==
[~2020-01-01] VITALS: Ht 185 cm; Wt 121.3 kg
== END 2020-01-01 10:35 | disposition home or self-care (01) ==
LOC: PREOP 05:34
PROVIDERS: ATTEND Surgery
DX: Z01.812 Encounter for preprocedural laboratory examination (principal); Z20.828 Contact with and (suspected) exposure to other viral communicable diseases
CPT/HCPCS: 87635

== ENCOUNTER 2020-01-03 07:27 | Day surgery (SDC) | payer MEDICARE ==
[~2020-01-03] VITALS: Ht 185 cm; Wt 121.3 kg
[2020-01-03] VITALS (9 sets, daily range): BP systolic 124–185; BP diastolic 68–92
--- OUTSIDE RECORDS SUMMARY | 2020-01-03 07:32 | XMS REPORT | Clinical Summary ---
Author Author [facility] Organization [facility] Address Unknown Phone Unavailable Care Team Providers Care Pharmaceutical Sales Representative Name Role Phone Aquilino Owen MD PCP Max Dupree MD Unavailable Source Comments Some departments are not documenting in the electronic medical record. If you d o not see the information that you expected, contact Release of Information in [facility] [employer] Information Management department at [phone] for further assistan ce in locating additional records.[facility] Allergies Not on File Medications Not on [...] Health Maintenance Due Date Last Done Comments HIV SCREENING 1973 DTAP/TDAP VACCINES (1 - 1976 Tdap) HEPATITIS C SCREENING 1976 PHYSICAL (COMPREHENSIVE) 1976 EXAM COLORECTAL CANCER 2008 SCREENING SHINGLES RECOMBINANT 2008 VACCINE (1 of 2) INFLUENZA VACCINE 02/29/2020 Results Not on filefrom Last 3 Months
--- OUTSIDE RECORDS SUMMARY | 2020-01-03 07:33 | XMS REPORT ---
Author Author Tra SILVERIO Organization [facility] Address [address] [place] [address] Care Team Providers Care Mri Assistant Name Role Phone FERNY SILVERIO Unavailable PROBLEMS Type Condition ICD9-CM Code OME57-KG Code Onset Dates Condition S tatus SNOMED Code Problem Hypertension I10 Active 7898139 3 Problem Hypoxia R09.02 Active 572282880 Problem COPD (chronic obstructive pulmonary disease) J44.9 Active 08487133 Problem Lumbar radiculopathy, chronic M54.16 Active 255403506 Problem [facility] current use of insulin Z79.4 Active 473559694 Problem Recurrent major depressive disorder, in full remission F33.42 Active 232713923 Problem Hyperlipidemia, unspecified E78.5 Ac tive 95047898 Problem PAD (peripheral artery disease) I73.9 Active 826745708 Problem Type 2 diabetes mellitus with other specified complication E11.69 Active 558205244520 Problem Anxiety F41.9 Active 42172343 Problem Type 2 diabetes mellitus wit h diabetic peripheral angiopathy without gangrene E11.51 Active 839455437 Problem ED (erectile dysfunction) of organic origin N52.9 Active 906527401 Problem Arthritis M19.90 Active 3512104 Problem Morbid (severe) obesity due to excess calories E66 .01 Active 854806215 ALLERGIES No Information ENCOUNTERS Encounter Location Date Diagnosis [facility] [address] [id number] [place] [address] Aug, [facility] [address] [facility] [id number] [address] [place] [phone] 24 Aug, 2019 Back pain M54.9 and Lumbar r adiculopathy, chronic M54.16 [facility] [address] [facility] [id number] [address] [place] [phone] Aug, Anxiety F41.9 ; Back pain M5 4.9 and Lumbar radiculopathy, chronic M54.16 [facility] [address] [id number] [address] [place] [id number] 09 Aug, 2019 Lumbar radiculopathy, chroni c M54.16 ; Anxiety F41.9 ; Type 2 diabetes mellitus with other specified complication E11.69 and Hypertension I10 [facility] [address] [id number] [address] [place] [address] 30 Jul, 2019 [facility] [address] [id number] [address] [place] [id number] 27 Jul, 2019 Lumbar radiculopathy, chroni c M54.16 ; Back pain M54.9 and Anxiety F41.9 [facility] [address] [id number] [address] [place] [id number] 23 Jul, 2019 [facility] [address] [id number] [address] [place] [id number] 13 Jul, 2019 Anxiety F41.9 [facility] [address] [id number] [address] [place] [address] 12 Jul, 2019 Anxiety F41.9 [facility] [address] [id number] [address] [place] [id number] 02 Jul, 2019 Back pain M54.9 [facility] [address] [id number] [address] [place] [id number] 02 Jul, 2019 Back pain M54.9 [facility] [address] [id number] [address] [place] [id number] 28 Jul, 2019 Lumbar radiculopathy, chroni c M54.16 [facility] [address] [id number] [address] [place] [id number] 28 Jul, 2019 Back pain M54.9 [facility] [address] [id number] [address] [place] [id number] 07 Jul, 2019 [facility] Z00.00 ; COPD (chronic obstructive pulmonary disease) J44.9 ; Recurrent major depressive disorder, in full remission F33.42 ; Type 2 diabetes mellitus with diabetic peripheral angiopathy without gangrene E11.51 ; PAD (peripheral artery disease) I73.9 ; Morbid (severe) obesity due to excess calories E66.01 ; Anxiety F41.9 ; Hypertension I10 ; Hyperlipidemia, unspecified E78.5 and Type 2 diabetes mellitus with other specified complication E11.69 [facility] [address] [id number] [address] [place] [address] Jul, Back pain M54.9 [facility] [address] [id number] [address] [place] [address] Jul, Anxiety F41.9 [place] [address] [id number] [address] [place] [address] May, [place] [address] [id number] [address] [place] [address] May, Lumbar radiculopathy, chroni c M54.16 [place] [address] [id number] [address] [place] [id number] May, Back pain M54.9 [place] [address] [id number] [address] [place] [id number] May, [place] [address] [facility] [id number] [address] [place] [address] May, Back pain M54.9 and Anxiety F41.9 [place] [address] [facility] [id number] [address] [place] [id number] May, [place] [address] [id number] [address] [place] [address] May, Type 2 diabetes mellitus wit h diabetic peripheral angiopathy without gangrene E11.51 ; Arthritis M19.90 ; ED (erectile dysfunction) of organic origin N52.9 ; Morbid (severe) obesity due to excess calories E66.01 and Lumbar radiculopathy, chronic M54.16 [place] [address] [id number] [address] [place] [address] May, Diabetes E11.9 [facility] [address] [id number] [address] [place] [address] Apr, [facility] [address] [id number] [address] [place] [address] Apr, Back pain M54.9 [facility] [address] [id number] [address] [place] [address] Apr, [facility] [address] [id number] [address] [place] [address] Apr, Anxiety F41.9 [facility] [address] [id number] [address] [place] [address] Apr, Back pain M54.9 and Lumbar r adiculopathy, chronic M54.16 [facility] [address] [facility] [id number] [address] [place] [address] Apr, Back pain M54.9 ; Anxiety F4 1.9 and Lumbar radiculopathy, chronic M54.16 [facility] [address] [facility] [id number] [address] [place] [id number] Mar, [facility] [address] [facility] [id number] [address] [place] [address] Mar, [facility] [address] [facility] [id number] [address] [place] [address] Mar, Back pain M54.9 [facility] [address] [facility] [id number] [address] [place] [id number] Mar, [facility] [address] [facility] [id number] [address] [place] [address] Feb, Type 2 diabetes mellitus wit h diabetic peripheral angiopathy without gangrene E11.51 ; Lumbar radiculopathy, chronic M54.16 ; ED (erectile dysfunction) of organic origin N52.9 ; Encounter for immunization Z23 ; COPD (chronic obstructive pulmonary disease) J44.9 and Anxiety F41.9 [facility] [address] [id number] [address] [place] [address] Feb, Back pain M54.9 [facility] [address] [id number] [address] [place] [id number] Feb, [facility] [address] [id number] [address] [place] [phone] Feb, [facility] [address] [id number] [address] [place] [id number] Feb, [facility] [address] [id number] [address] [place] [address] Feb, Back pain M54.9 [facility] [address] [id number] [address] [place] [address] Feb, [facility] [address] [id number] [address] [place] [address] Jan, Anxiety F41.9 [facility] [address] [id number] [address] [place] [address] Jan, Anxiety F41.9 [facility] [address] [id number] [address] [place] [address] Jan, [facility] [address] [id number] [address] [place] [address] Jan, [facility] [address] [id number] [address] [place] [address] Jan, Back pain M54.9 [facility] [address] [id number] [address] [place] [address] Jan, [facility] [address] [id number] [address] [place] [id number] Dec, Acute non-recurrent frontal sinusitis J01.10 [facility] [address] [id number] [address] [place] [address] Dec, Acute non-recurrent frontal sinusitis J01.10 [facility] [address] [id number] [address] [place] [address] Dec, Type 2 diabetes mellitus wit h diabetic peripheral angiopathy without gangrene E11.51 ; Lumbar radiculopathy, chronic M54.16 ; Recurrent major depressive disorder, in full remission F33.42 and Anxiety F41.9 [facility] [address] [id number] [address] [place] [address] Dec, [facility] [address] [id number] [address] [place] [address] Nov, Anxiety F41.9 [facility] [address] [id number] [address] [place] [phone] Nov, [facility] [address] [id number] [address] [place] [address] Nov, Back pain M54.9 [facility] [address] [id number] [address] [place] [address] Nov, [facility] [address] [id number] [address] [place] [address] Nov, Back pain M54.9 [facility] [address] [id number] [address] [place] [address] Nov, Anxiety F41.9 [facility] [address] [id number] [address] [place] [id number] Nov, [facility] [address] [id number] [address] [place] [address] Oct, Back pain M54.9 [facility] [address] [id number] [address] [place] [id number] Oct, [facility] [address] [id number] [address] [place] [address] Oct, [facility] [address] [id number] [address] [place] [id number] Oct, [facility] [address] [id number] [address] [place] [address] September, Back pain M54.9 [facility] [address] [id number] [address] [place] [id number] September, [facility] [address] [id number] [address] [place] [address] September, [facility] [address] [id number] [address] [place] [address] September, [facility] [address] [id number] [address] [place] [address] Aug, Back pain M54.9 [facility] [address] [id number] [address] [place] [address] Aug, Anxiety F41.9 [facility] [address] [id number] [address] [place] [address] Aug, [facility] [address] [id number] [address] [place] [address] Aug, Pressure ulcer of other site , stage 3 L89.893 and COPD (chronic obstructive pulmonary disease) J44.9 [facility] [address] [id number] [address] [place] [address] Aug, History of smoking Z87.891 [facility] [address] [id number] [address] [place] [address] Jul, Type 2 diabetes mellitus wit h diabetic peripheral angiopathy without gangrene E11.51 [facility] [address] [id number] [address] [place] [address] Jul, Back pain M54.9 [facility] [address] [id number] [address] [place] [address] Jul, Anxiety F41.9 [facility] [address] [id number] [address] [place] [address] Jul, [facility] [address] [id number] [address] [place] [address] Jul, Back pain M54.9 [facility] [address] [id number] [address] [place] [address] Jul, Back pain M54.9 [facility] [address] [id number] [address] [place] [id number] Jul, Lumbar radiculopathy, chroni c M54.16 ; Hypertension I10 and Type 2 diabetes mellitus with diabetic peripheral angiopathy without gangrene E11.51 [facility] [address] [id number] [address] [place] [address] Jul, Back pain M54.9 [facility] [address] [id number] [address] [place] [address] Jul, Back pain M54.9 and Anxiety F41.9 [place] [address] [id number] [address] [place] [address] Jul, [facility] [address] [id number] [address] [place] [address] May, Back pain M54.9 and Anxiety F41.9 [place] [address] [id number] [address] [place] [address] May, [facility] [address] [id number] [address] [place] [address] Apr, Radiculopathy of lumbar rhiannon on M54.16 ; Back pain M54.9 and Anxiety F41.9 [facility] [address] [id number] [address] [place] [address] Apr, Diabetes E11.9 ; Muscle spas m M62.838 and Lumbar radiculopathy, chronic M54.16 [facility] [address] [id number] [address] [place] [address] Apr, [facility] [address] [id number] [address] [place] [address] Apr, [facility] [address] [id number] [address] [place] [id number] 30 Mar, 2018 Back pain M54.9 and Anxiety F41.9 [facility] [address] [id number] [address] [place] [id number] Mar, [facility] [address] [facility] [id number] [address] [place] [address] Mar, [facility] [address] [id number] [address] [place] [address] Mar, [facility] [address] [facility] [id number] [address] [place] [address] Mar, Encounter for immunization Z 23 [facility] [address] [facility] [id number] [address] [place] [address] 31 Feb, 2018 Back pain M54.9 and Anxiety F41.9 [place] [address] [facility] [id number] [address] [place] [address] 04 Feb, 2018 Back pain M54.9 and Anxiety F41.9 [place] [address] [facility] [id number] [address] [place] [address] 06 Jan, 2018 Back pain M54.9 and Anxiety F41.9 [place] [address] [facility] [id number] [address] [place] [address] 06 Jan, 2018 [place] [address] [facility] [id number] [address] [place] [address] Dec, [facility] [address] [facility] [id number] [address] [place] [address] Dec, Back pain M54.9 and Anxiety F41.9 [place] [address] [facility] [id number] [address] [place] [address] 13 Dec, 2017 Diabetes E11.9 ; Type 2 diab etes mellitus with diabetic peripheral angiopathy without gangrene E11.51 ; Lumbar radiculopathy, chronic M54.16 ; COPD (chronic obstructive pulmonary disease) J44.9 and Anxiety F41.9 [place] [address] [id number] [address] [place] [address] Dec, Back pain M54.9 and Anxiety F41.9 [facility] [address] [facility] [id number] [address] [place] [address] Nov, Back pain M54.9 and Anxiety F41.9 [facility] [address] [facility] [id number] [address] [place] [address] Oct, [facility] [address] [facility] [id number] [address] [place] [address] Oct, Back pain M54.9 and Anxiety F41.9 [place] [address] [facility] [id number] [address] [place] [address] September, Anxiety F41.9 and Back pain M54.9 [place] [address] [facility] [id number] [address] [place] [address] September, Diabetes E11.9 ; Hypertensio n I10 ; COPD (chronic obstructive pulmonary disease) J44.9 and Lumbar radiculopathy, chronic M54.16 [place] [address] [facility] [id number] [address] [place] [id number] September, Anxiety F41.9 [place] [id number] [facility] [id number] [address] [place] [address] Aug, [facility] [address] [facility] [id number] [address] [place] [address] Aug, [facility] [address] [facility] [id number] [address] [place] [address] Aug, Anxiety F41.9 and Back pain M54.9 [place] [address] [facility] [id number] [address] [place] [id number] Aug, Medicare annual wellness vis it, initial Z00.00 ; COPD (chronic obstructive pulmonary disease) J44.9 ; PAD (peripheral artery disease) I73.9 ; Insulin long-term use Z79.4 ; Hypertension I10 ; Anxiety F41.9 ; Recurrent major depressive disorder, in full remission F33.42 ; Pressure ulcer of other site, stage 3 L89.893 ; Type 2 diabetes mellitus with diabetic peripheral angiopathy without gangrene E11.51 and [facility] current use of insulin Z79.4 [facility] [address] [id number] [address] [place] [address] Jul, Back pain M54.9 [facility] [address] [id number] [address] [place] [address] Jul, [facility] [address] [id number] [address] [place] [address] Jul, Anxiety F41.9 and Back pain M54.9 [facility] [address] [id number] [address] [place] [address] Jul, Diabetes E11.9 [facility] [address] [id number] [address] [place] [address] May, [facility] [address] [id number] [address] [place] [address] May, Diabetes E11.9 ; Anxiety F41 .9 ; Back pain M54.9 and COPD (chronic obstructive pulmonary disease) J44.9 [facility] [address] [id number] [address] [place] [address] May, Back pain M54.9 [facility] [address] [id number] [address] [place] [address] May, [facility] [address] [id number] [address] [place] [address] Apr, Back pain M54.9 [facility] [address] [id number] [address] [place] [address] Mar, Back pain M54.9 [facility] [address] [id number] [address] [place] [id number] Mar, [facility] [address] [id number] [address] [place] [address] 16 Mar, 2017 [facility] [address] [id number] [address] [place] [id number] 14 Mar, 2017 Radiculopathy of lumbar rhiannon on M54.16 [facility] [address] [id number] [address] [place] [id number] 13 Mar, 2017 [facility] [address] [facility] [id number] [address] [place] [id number] 07 Mar, 2017 Encounter for immunization Z 23 and Lumbar radiculopathy, chronic M54.16 [facility] [address] [id number] [address] [place] [address] 01 Mar, 2017 Back pain M54.9 and Anxiety F41.9 [facility] [address] [id number] [address] [place] [id number] 10 Feb, 2017 Acute bilateral low back boy n with left-sided sciatica M54.42 and Acute bilateral low back pain with right-sided sciatica M54.41 [facility] [address] [id number] [address] [place] [address] Feb, [facility] [address] [id number] [address] [place] [id number] Feb, Back pain M54.9 [facility] [address] [id number] [address] [place] [id number] 05 Jan, 2017 Back pain M54.9 and Anxiety F41.9 [facility] [address] [id number] [address] [place] [id number] 05 Jan, 2017 Diabetes E11.9 [facility] [address] [id number] [address] [place] [phone] Dec, Diabetes E11.9 ; Back pain M 54.9 ; Anxiety F41.9 and Insulin long- term use Z79.4 [facility] [address] [id number] [address] [place] [id number] Dec, Anxiety F41.9 [facility] [address] [id number] [address] [place] [id number] Dec, Back pain M54.9 [facility] [address] [id number] [address] [place] [id number] Nov, Back pain M54.9 [facility] [address] [id number] [address] [place] [id number] Oct, Back pain M54.9 and Anxiety F41.9 [facility] [address] [id number] [address] [place] [id number] September, Back pain M54.9 [facility] [address] [id number] [address] [place] [id number] September, Back pain M54.9 and Anxiety F41.9 [facility] [address] [id number] [address] [place] [id number] Aug, Diabetes E11.9 ; Anxiety F41 .9 ; Back pain M54.9 and PAD (peripheral artery disease) I73.9 [facility] [address] [id number] [address] [place] [id number] Aug, Anxiety F41.9 [facility] [address] [id number] [address] [place] [id number] 14 Aug, 2016 Back pain M54.9 [facility] [address] [id number] [address] [place] [id number] Jul, Back pain M54.9 [facility] [address] [id number] [address] [place] [id number] 13 Jul, 2016 Back pain M54.9 [facility] [address] [id number] [address] [place] [id number] 23 Jul, 2016 Back pain M54.9 [facility] [address] [id number] [address] [place] [id number] 16 Jul, 2016 Dorsalgia M54.9 [facility] [address] [id number] [address] [place] [id number] 14 Jul, 2016 [facility] [address] [id number] [address] [place] [id number] May, Back pain M54.9 [facility] [address] [id number] [address] [place] [id number] May, Diabetes E11.9 ; Anxiety F41 .9 ; Port catheter in place Z95.828 ; Encounter for immunization Z23 and Insulin long-term use Z79.4 [facility] [address] [id number] [address] [place] [id number] Apr, Back pain M54.9 [facility] [address] [id number] [address] [place] [id number] Apr, Back pain M54.9 [facility] [address] [id number] [address] [place] [id number] Apr, [facility] [address] [id number] 70 [place] [address] Apr, Back pain M54.9 [facility] [address] [id number] [address] [place] [address] Mar, COPD (chronic obstructive pu lmonary disease) J44.9 [facility] [address] [id number] [address] [place] [address] Feb, [facility] [address] [id number] [address] [place] [address] 30 Jan, 2016 [facility] [address] [id number] [address] [place] [address] Jan, [facility] [address] [id number] [address] [place] [address] Jan, [facility] [address] [id number] [address] [place] [address] Jan, [facility] [address] [id number] [address] [place] [address] Dec, Diabetes E11.9 ; Hypoxia R09 .02 and Back pain M54.9 [facility] [address] [id number] [address] [place] [address] Dec, [facility] [address] [id number] [address] [place] [address] Nov, [facility] [address] [id number] [address] [place] [address] Oct, Anxiety F41.9 [facility] [address] [id number] [address] [place] [address] Oct, Back pain M54.9 [facility] [address] [id number] [address] [place] [address] September, Back pain M54.9 [facility] [address] [id number] [address] [place] [address] September, Diabetes E11.9 [facility] [address] [id number] [address] [place] [address] September, [facility] [address] [id number] [address] [place] [address] September, Diabetes E11.9 ; Insulin sarai g-term use Z79.4 and Back pain M54.9 [facility] [address] [id number] [address] [place] [address] Aug, Back pain M54.9 [facility] [address] [id number] [address] [place] [address] Aug, Back pain M54.9 ; Anxiety F4 1.9 and Arthropathy, unspecified M12.9 [facility] [address] [id number] [address] [place] [address] Jul, Back pain M54.9 [facility] [address] [facility] [id number] [address] [place] [address] Jul, Anxiety F41.9 [facility] [address] [facility] [id number] [address] [place] [address] Jul, Back pain M54.9 [facility] [address] [facility] [id number] [address] [place] [address] Jul, [facility] [address] [facility] [id number] [address] [place] [address] Jul, [facility] [address] [facility] [id number] [address] [place] [address] May, Back pain M54.9 ; Diabetes E 11.9 ; Insulin long-term use Z79.4 ; COPD (chronic obstructive pulmonary disease) J44.9 and Hypertension I10 [facility] [address] [facility] [id number] [address] [place] [address] May, Chronic pain G89.29 [facility] [address] [facility] [id number] [address] [place] [address] Apr, [facility] [address] [facility] [id number] [address] [place] [address] Apr, [facility] [address] [facility] [id number] [address] [place] [address] Mar, [facility] [address] [facility] [id number] [address] [place] [address] Mar, Encounter for immunization Z 23 and Diabetes E11.9 [facility] [address] [facility] [id number] [address] [place] [address] Feb, [facility] [address] [facility] [id number] [address] [place] [address] Feb, [facility] [address] [facility] [id number] [address] [place] [address] Jan, [facility] [address] [facility] [id number] [address] [place] [address] Jan, [facility] [address] [facility] [id number] [address] [place] [phone] Dec, [facility] [address] [id number] [address] [place] [address], [place] [address] Dec, [facility] [address] [id number] [address] [place] [address], [place] [address] Dec, Unspecified arthropathy, sit e unspecified 716.90 and Diabetes mellitus type 2, uncontrolled 250.02 [facility] [address] [id number] [address] [place] [address], [place] [address] Dec, [facility] [address] [id number] [address] [place] [address], [place] [address] Nov, [facility] [address] [id number] [address] [place] [address], [place] [address] Oct, [facility] [address] [id number] [address] [place] [address], [place] [address] September, [facility] [address] [id number] [address] [place] [address], [place] [address] September, [facility] [address] [id number] [address] [place] [address], [place] [address] September, [facility] [address] [id number] [address] [place] [address], [place] [address] September, [facility] [address] [id number] [address] [place] [address], [place] [address] Aug, [facility] [address] [id number] [address] [place] [address], [place] [address] Aug, [facility] [address] [id number] [address] [place] [address], [place] [address] Jul, [facility] [address] [id number] [address] [place] [address], [place] [address] Jul, [facility] [address] [id number] [address] [place] [id number] 16 Jul, 2014 [facility] [address] [id number] [address] [place] [id number] 16 Jul, 2014 [facility] [address] [id number] [facility] [address] 16 Jul, 2014 [facility] [address] [id number] [address] [place] [address], [place] [address] 16 Jul, 2014 [facility] [address] [id number] [address] [place] [address], [place] [address] 16 Jul, 2014 [facility] [address] [id number] [address] [place] [address], [place] [address] 16 Jul, 2014 [facility] [address] [id number] [address] [place] [address], [place] [address] 16 Jul, 2014 [facility] [address] [id number] [address] [place] [address], [place] [address] 13 Jul, 2014 [facility] [address] [id number] [address] [place] [address], [place] [address] 13 Jul, 2014 [facility] [address] [id number] [address] [place] [address], [place] [address] 09 Jul, 2014 [facility] [address] [id number] [address] [place] [address], [place] [address] 09 Jul, 2014 [facility] [address] [id number] [address] [place] [address], [place] [address] 17 Jul, 2014 [facility] [address] [id number] [address] [place] [address], [place] [address] 17 Jul, 2014 [facility] [address] [id number] [address] [place] [address], [place] [address] 16 Jul, 2014 [facility] [address] [id number] [address] [place] [address], [place] [address] 16 Jul, 2014 [facility] [address] [id number] [address] [place] [address], [place] [address] 16 Jul, 2014 [facility] [address] [id number] [address] [place] [address], [place] [address] 16 Jul, 2014 [facility] [address] [id number] [address] [place] [address], [place] [address] 16 Jul, 2014 [facility] [address] [id number] [address] [place] [address], [place] [address] Jul, 2014 [facility] [address] [id number] [address] [place] [address], [place] [address] 16 Jul, 2014 [facility] [address] [id number] [address] [place] [address], [place] [address] 16 Jul, 2014 [facility] [address] [id number] [address] [place] [address], [place] [address] 16 Jul, 2014 [facility] [address] [id number] [address] [place] [address], [place] [address] Jul, 2014 [facility] [address] [id number] [address] [place] [address], [place] [address] Jul, 2014 [facility] [address] [id number] [address] [place] [address], [place] [address] Jul, 2014 [facility] [address] [id number] [address] [place] [address], [place] [address] Jul, 2014 [facility] [address] [id number] [address] [place] [address], [place] [address] Jul, 2014 [facility] [address] [id number] [address] [place] [address], [place] [address] May, [facility] [address] [id number] [address] [place] [address], [place] [address] May, [facility] [address] [id number] [address] [place] [address], [place] [address] May, [facility] [address] [id number] [address] [place] [address], [place] [address] May, [facility] [address] [id number] [address] [place] [address], [place] [address] May, [facility] [address] [id number] [address] [place] [address] [place] [address] May, [facility] [address] [id number] [address] [place] [address], [place] [address] May, [facility] [address] [id number] [address] [place] [address], [place] [address] May, [facility] [address] [id number] [address] [place] [address], [place] [address] May, [facility] [address] [id number] [address] [place] [address], [place] [address] May, [facility] [address] [id number] [address] [place] [address], [place] [address] Apr, [facility] [address] [id number] [address] [place] [address], [place] [address] Apr, [facility] [address] [id number] [address] [place] [address], [place] [address] Apr, [facility] [address] [id number] [address] [place] [address], [place] [address] Apr, [facility] [address] [id number] [address] [place] [address], [place] [address] Apr, [facility] [address] [id number] [address] [place] [address], [place] [address] Apr, [facility] [address] [id number] [address] [place] [address], [place] [address] Mar, [facility] [address] [id number] [address] [place] [address], [place] [address] Mar, [facility] [address] [id number] [address] [place] [address], [place] [address] Mar, [facility] [address] [id number] [address] [place] [address], [place] [address] Mar, [facility] [address] [id number] [address] [place] [address], [place] [address] Mar, [facility] [address] [id number] [address] [place] [address], [place] [address] Mar, [facility] [address] [id number] [address] [place] [address], [place] [address] Mar, [facility] [address] [id number] [address] [place] [address], [place] [address] Mar, [facility] [address] [id number] [address] [place] [address], [place] [address] Mar, [facility] [address] [id number] [address] [place] [address], [place] [address] Mar, [facility] [address] [id number] [address] [place] [address], [place] [address] Mar, [facility] [address] [id number] [address] [place] [address], [place] [address] Feb, [facility] [address] [id number] [address] [place] [address], [place] [address] Feb, [facility] [address] [id number] [address] [place] [address], [place] [address] Feb, [facility] [address] [id number] [address] [place] [address], [place] [address] Feb, [facility] [address] [id number] [address] [place] [address], [place] [address] Feb, [facility] [address] [id number] [address] [place] [address], [place] [address] Feb, [facility] [address] [id number] [address] [place] [address], [place] [address] Feb, [facility] [address] [id number] [address] [place] [address], [place] [address] Feb, [facility] [address] [id number] [address] [place] [address], [place] [address] Feb, [facility] [address] [id number] [address] [place] [address], [place] [address] Feb, [facility] [address] [id number] [facility] [address] Jan, [facility] [address] [id number] [address] [place] [address], [place] [address] Jan, [facility] [address] [id number] [address] [place] [address], [place] [address] Jan, [facility] [address] [id number] [address] [place] [address], [place] [address] 16 Jan, 2014 [facility] [address] [id number] [address] [place] [address], [place] [address] Jan, [facility] [address] [id number] [address] [place] [address], [place] [address] Jan, [facility] [address] [id number] [address] [place] [address], [place] [address] Jan, [facility] [address] [id number] [address] [place] [address], [place] [address] Dec, [facility] [address] [id number] [address] [place] [address], [place] [address] Dec, [facility] [address] [id number] [address] [place] [address], [place] [address] Dec, [facility] [address] [id number] [address] [place] [address], [place] [address] Dec, [facility] [address] [id number] [address] [place] [address], [place] [address] Dec, [facility] [address] [id number] [address] [place] [address], [place] [address] Dec, [facility] [address] [id number] [address] [place] [address], [place] [address] Dec, [facility] [address] [id number] [address] [place] [address], [place] [address] Dec, [facility] [address] [id number] [address] [place] [address], [place] [address] Oct, [facility] [address] [id number] [address] [place] [address], [place] [address] Oct, [facility] [address] [id number] [address] [place] [address], [place] [address] September, [facility] [address] [id number] [address] [place] [address], [place] [address] September, [facility] [address] [id number] [address] [place] [address], [place] [address] September, [facility] [address] [id number] [address] [place] [address], [place] [address] September, [facility] [address] [id number] [address] [place] [address], [place] [address] September, [facility] [address] [id number] [address] [place] [address], [place] [address] September, [facility] [address] [id number] [address] [place] [address], [place] [address] September, [facility] [address] [id number] [address] [place] [address], [place] [address] Aug, [facility] [address] [id number] [address] [place] [address], [place] [address] Aug, [facility] [address] [id number] [address] [place] [address], [place] [address] Jul, [facility] [address] [id number] [address] [place] [address], [place] [address] Jul, [facility] [address] [id number] [address] [place] [address], [place] [address] Jul, [facility] [address] [id number] [address] [place] [address], [place] [address] 17 Jul, 2013 [facility] [address] [id number] [address] [place] [address], [place] [address] 14 Jul, 2013 [facility] [address] [id number] [address] [place] [address], [place] [address] 14 Jul, 2013 [facility] [address] [id number] [address] [place] [address], [place] [address] 03 Jul, 2013 [facility] [address] [id number] [address] [place] [address], [place] [address] Jul, [facility] [address] [id number] [address] [place] [address], [place] [address] 15 May, 2013 [facility] [address] [id number] [address] [place] [address], [place] [address] 15 May, 2013 [facility] [address] [id number] [address] [place] [address], [place] [address] May, [facility] [address] [id number] [address] [place] [address], [place] [address] May, [facility] [address] [id number] [address] [place] [address], [place] [address] 18 Apr, 2013 [facility] [address] [id number] [address] [place] [address], [place] [address] Mar, [facility] [address] [id number] [address] [place] [address], [place] [address] Mar, [facility] [address] [id number] [address] [place] [address], [place] [address] Mar, [facility] [address] [id number] [address] [place] [address], [place] [address] Mar, [facility] [address] [id number] [address] [place] [address], [place] [address] Mar, [facility] [address] [id number] [address] [place] [address], [place] [address] 18 Mar, 2013 [facility] [address] [id number] [address] [place] [address], [place] [address] Mar, [facility] [address] [id number] [address] [place] [address], [place] [address] Mar, [facility] [address] [id number] [address] [place] [address], [place] [address] Mar, [facility] [address] [id number] [address] [place] [address], [place] [address] Mar, [facility] [address] [id number] [address] [place] [address], [place] [address] Mar, [facility] [address] [id number] [address] [place] [address], [place] [address] Mar, [facility] [address] [id number] [address] [place] [address], [place] [address] Feb, [facility] [address] [id number] [address] [place] [address], [place] [address] Feb, [facility] [address] [id number] [address] [place] [address], [place] [address] Feb, [facility] [address] [id number] [address] [place] [address], [place] [address] Feb, [facility] [address] [id number] [address] [place] [address], [place] [address] Feb, [facility] [address] [id number] [address] [place] [address], [place] [address] Jan, [facility] [address] [id number] [address] [place] [address], [place] [address] Dec, [facility] [address] [id number] [address] [place] [address], [place] [address] Dec, [facility] [address] [id number] [address] [place] [address], [place] [address] Dec, [facility] [address] [id number] [address] [place] [address], [place] [address] Nov, [facility] [address] [id number] [address] [place] [address], [place] [address] Nov, [facility] [address] [id number] [address] [place] [address], [place] [address] Nov, [facility] [address] [id number] [address] [place] [address], [place] [address] Oct, [facility] [address] [id number] [address] [place] [address], [place] [address] Oct, [facility] [address] [id number] [address] [place] [address], [place] [address] Oct, [facility] [address] [id number] [address] [place] [address], [place] [address] September, [facility] [address] [id number] [address] [place] [address], [place] [address] September, [facility] [address] [id number] [address] [place] [address], [place] [address] September, [facility] [address] [id number] [address] [place] [address], [place] [address] September, [facility] [address] [id number] [address] [place] [address], [place] [address] September, [facility] [address] [id number] [address] [place] [address], [place] [address] Aug, [facility] [address] [id number] [address] [place] [address], [place] [address] Aug, [facility] [address] [id number] [address] [place] [address], [place] [address] Aug, [facility] [address] [id number] [address] [place] [address], [place] [address] Jul, [facility] [address] [id number] [address] [place] [address], [place] [address] Jul, [facility] [address] [id number] [address] [place] [address], [place] [address] Jul, [facility] [address] [id number] [address] [place] [address], [place] [address] Jul, [facility] [address] [id number] [address] [place] [address], [place] [address] Jul, [facility] [address] [id number] [address] [place] [address], [place] [address] Jul, [facility] [address] [id number] [address] [place] [address], [place] [address] Jul, [facility] [address] [id number] [address] [place] [address], [place] [address] 14 May, 2012 [facility] [facility] [address] [id number] [address] [place] [address], [place] [address] May, [facility] [address] [id number] [address] [place] [address], [place] [address] May, [facility] [address] [id number] [address] [place] [address], [place] [address] Apr, [facility] [address] [id number] [address] [place] [address], [place] [address] Apr, [facility] [address] [id number] [address] [place] [address], [place] [address] Apr, [facility] [address] [id number] [address] [place] [address], [place] [address] 17 Apr, 2012 [facility] [address] [id number] [address] [place] [address], [place] [address] Apr, [facility] [address] [id number] [address] [place] [address], [place] [address] 29 Mar, 2012 [facility] [address] [id number] [address] [place] [address], [place] [address] 29 Mar, 2012 [facility] [address] [id number] [address] [place] [address], [place] [address] 15 Mar, 2012 [facility] [address] [id number] [address] [place] [address], [place] [address] 15 Mar, 2012 [facility] [address] [id number] [address] [place] [address], [place] [address] Feb, [facility] [address] [id number] [address] [place] [address], [place] [address] Feb, [facility] [address] [id number] [address] [place] [address], [place] [address] Feb, [facility] [address] [id number] [address] [place] [address], [place] [address] Feb, [facility] [address] [id number] [address] [place] [address], [place] [address] Feb, [facility] [address] [id number] [address] [place] [address], [place] [address] Jan, [facility] [address] [id number] [address] [place] [address], [place] [address] Dec, [facility] [address] [id number] [address] [place] [address], [place] [address] Dec, [facility] [address] [id number] [address] [place] [address], [place] [address] Dec, [facility] [address] [id number] [address] [place] [address], [place] [address] Nov, [facility] [address] [id number] [address] [place] [address], [place] [address] Nov, [facility] [address] [id number] [address] [place] [address], [place] [address] Nov, [facility] [address] [id number] [address] [place] [address], [place] [address] Oct, [facility] [address] [id number] [address] [place] [address], [place] [address] Oct, [facility] [address] [id number] [address] [place] [address], [place] [address] Oct, [facility] [address] [id number] [address] [place] [address], [place] [address] Oct, [facility] [address] [id number] [address] [place] [address], [place] [address] September, [facility] [address] [id number] [address] [place] [address], [place] [address] September, [facility] [address] [id number] [address] [place] [address], [place] [address] Aug, [facility] [address] [id number] [address] [place] [address], [place] [address] Aug, [facility] [address] [id number] [address] [place] [address], [place] [address] Aug, [facility] [address] [id number] [address] [place] [address], [place] [address] Aug, [facility] [address] [id number] [address] [place] [address], [place] [address] Aug, [facility] [address] [id number] [address] [place] [address], [place] [address] Aug, [facility] [address] [id number] [address] [place] [address], [place] [address] Aug, [facility] [address] [id number] [address] [place] [address], [place] [address] Jul, [facility] [address] [id number] [address] [place] [address], [place] [address] Jul, [facility] [address] [id number] [address] [place] [address], [place] [address] Jul, [facility] [address] [id number] [address] [place] [address], [place] [address] May, [facility] [address] [id number] [address] [place] [address], [place] [address] May, [facility] [address] [id number] [address] [place] [address], [place] [address] May, [facility] [address] [id number] [address] [place] [address] Apr, [facility] [address] [id number] [address] [place] [address] Apr, [facility] [address] [id number] [address] [place] [address] Mar, [facility] [address] [id number] [address] [place] [address] Mar, [facility] [address] [id number] [address] [place] [address] Mar, [facility] [address] [id number] [address] [place] [address] Mar, [facility] [address] [id number] [address] [place] [address] Mar, [facility] [address] [id number] [address] [place] [address] Mar, [facility] [address] [id number] [address] [place] [address] Feb, [facility] [address] [id number] [address] [place] [address] Feb, [facility] [address] [id number] [address] [place] [address] Feb, IMMUNIZATIONS No Known Immunizations SOCIAL HISTORY [...] History herniated disc Medical History spinal stenosis Medical History t big toe removal 11/2018 Surgical History back surgery Surgical History right shoulder x 2 Surgical History right knee x 2 Surgical History LPJ of right kidney Surgical History 2nd toe removed on right foot Surgical History 3rd and 4th metatarsal heads removed on right foot Surgical History bone spurs removed x 4 bilateral feet Surgical History Procedure- Burning of nerve in his back Surgical History right big toe removed 11/2018 Hospitalization History surgeries Hospitalization History foot infections x 3 2016 Hospitalization History [facility] - right big t oe removed 2019
--- OUTSIDE RECORDS SUMMARY | 2020-01-03 07:33 | XMS REPORT ---
Author Author Tra SILVERIO Organization [facility] Address [address] [place] [address] Care Team Providers Care Ophthalmic Technician Name Role Phone FENRY SILVERIO Unavailable PROBLEMS Type Condition ICD9-CM Code SBN01-PU Code Onset Dates Condition S tatus SNOMED Code Problem Hypertension I10 Active 0419456 3 Problem Hypoxia R09.02 Active 322388981 Problem COPD (chronic obstructive pulmonary disease) J44.9 Active 47350622 Problem Lumbar radiculopathy, chronic M54.16 Active 346525540 Problem senior living current use of insulin Z79.4 Active 299492417 Problem Recurrent major depressive disorder, in full remission F33.42 Active 044767972 Problem Hyperlipidemia, unspecified E78.5 Ac tive 13243716 Problem PAD (peripheral artery disease) I73.9 Active 915514230 Problem Type 2 diabetes mellitus with other specified complication E11.69 Active 240335893367 Problem Anxiety F41.9 Active 63493242 Problem Type 2 diabetes mellitus wit h diabetic peripheral angiopathy without gangrene E11.51 Active 938922976 Problem ED (erectile dysfunction) of organic origin N52.9 Active 131272525 Problem Arthritis M19.90 Active 8423240 Problem Morbid (severe) obesity due to excess calories E66 .01 Active 884176217 ALLERGIES No Information ENCOUNTERS Encounter Location Date Diagnosis [facility] [address] [facility] [id number] [address] [place] [phone] 24 Aug, 2019 Back pain M54.9 and Lumbar r adiculopathy, chronic M54.16 [facility] [address] [place] [id number] [address] [place] [phone] 10 Aug, 2019 Anxiety F41.9 ; Back pain M5 4.9 and Lumbar radiculopathy, chronic M54.16 [facility] [address] [place] [id number] [address] [place] [phone] 09 Aug, 2019 Lumbar radiculopathy, chroni c M54.16 ; Anxiety F41.9 ; Type 2 diabetes mellitus with other specified complication E11.69 and Hypertension I10 [facility] [address] [id number] [address] [place] [phone] 30 Jul, 2019 [facility] [address] [id number] [address] [place] [phone] 27 Jul, 2019 Lumbar radiculopathy, chroni c M54.16 ; Back pain M54.9 and Anxiety F41.9 [facility] [address] [id number] [address] [place] [phone] 23 Jul, 2019 [facility] [address] [id number] [address] [place] [phone] 13 Jul, 2019 Anxiety F41.9 [facility] [address] [id number] [address] [place] [phone] 12 Jul, 2019 Anxiety F41.9 [facility] [address] [id number] [address] [place] [phone] 02 Jul, 2019 Back pain M54.9 [facility] [address] [id number] [address] [place] [phone] 02 Jul, 2019 Back pain M54.9 [facility] [address] [id number] [address] [place] [phone] Jul, Lumbar radiculopathy, chroni c M54.16 [facility] [address] [id number] [address] [place] [phone] 28 Jul, 2019 Back pain M54.9 [facility] [address] [id number] [address] [place] [phone] 07 Jul, 2019 [facility] ; COPD (chronic obstructive [...] diabetes mellitus with other specified complication E11.69 [facility] [address] [id number] [address] [place] [phone] Jul, Back pain M54.9 [facility] [address] [id number] [address] [place] [phone] Jul, Anxiety F41.9 [facility] [address] [id number] [address] [place] [phone] May, [place] [address] [facility] [id number] [address] [place] [phone] May, Lumbar radiculopathy, chroni c M54.16 [place] [address] [id number] [address] [place] [phone] May, Back pain M54.9 [facility] [address] [id number] [address] [place] [phone] May, [place] [address] [facility] [id number] [address] [place] [phone] May, Back pain M54.9 and Anxiety F41.9 [facility] [address] [facility] [id number] [address] [place] [phone] May, [place] [address] [facility] [id number] [address] [place] [phone] May, Type 2 diabetes mellitus wit h diabetic peripheral angiopathy without gangrene E11.51 ; Arthritis M19.90 ; ED (erectile dysfunction) of organic origin N52.9 ; Morbid (severe) obesity due to excess calories E66.01 and Lumbar radiculopathy, chronic M54.16 [facility] [address] [facility] [id number] [address] [place] [phone] May, Diabetes E11.9 [facility] [address] [facility] [id number] [address] [place] [phone] Apr, [facility] [address] [id number] [address] [place] [phone] Apr, Back pain M54.9 [facility] [address] [id number] [address] [place] [phone] Apr, [facility] [address] [id number] [address] [place] [phone] Apr, Anxiety F41.9 [facility] [address] [id number] [address] [place] [phone] Apr, Back pain M54.9 and Lumbar r adiculopathy, chronic M54.16 [facility] [address] [facility] [id number] [address] [place] [phone] Apr, Back pain M54.9 ; Anxiety F4 1.9 and Lumbar radiculopathy, chronic M54.16 [facility] [address] [id number] [address] [place] [phone] Mar, [facility] [address] [id number] [address] [place] [phone] Mar, [facility] [address] [facility] [id number] [address] [place] [phone] Mar, Back pain M54.9 [facility] [address] [facility] [id number] [address] [place] [phone] Mar, [facility] [address] [facility] [id number] [address] [place] [phone] Feb, Type 2 diabetes mellitus wit h diabetic peripheral angiopathy without gangrene E11.51 ; Lumbar radiculopathy, chronic M54.16 ; ED (erectile dysfunction) of organic origin N52.9 ; Encounter for immunization Z23 ; COPD (chronic obstructive pulmonary disease) J44.9 and Anxiety F41.9 [facility] [address] [facility] [id number] [address] [place] [phone] Feb, Back pain M54.9 [facility] [address] [id number] [address] [place] [phone] 08 Feb, 2019 [facility] [address] [id number] [address] [place] [phone] Feb, [facility] [address] [id number] [address] [place] [phone] Feb, [facility] [address] [id number] [address] [place] [phone] Feb, Back pain M54.9 [facility] [address] [id number] [address] [place] [phone] Feb, [facility] [address] [id number] [address] [place] [phone] Jan, Anxiety F41.9 [facility] [address] [id number] [address] [place] [phone] Jan, Anxiety F41.9 [facility] [address] [id number] [address] [place] [phone] Jan, [facility] [address] [id number] [address] [place] [phone] Jan, [facility] [address] [id number] [address] [place] [phone] Jan, Back pain M54.9 [facility] [address] [id number] [address] [place] [phone] Jan, [facility] [address] [id number] [address] [place] [phone] Dec, Acute non-recurrent frontal sinusitis J01.10 [facility] [address] [id number] [address] [place] [phone] Dec, Acute non-recurrent frontal sinusitis J01.10 [facility] [address] [id number] [address] [place] [phone] Dec, Type 2 diabetes mellitus wit h diabetic peripheral angiopathy without gangrene E11.51 ; Lumbar radiculopathy, chronic M54.16 ; Recurrent major depressive disorder, in full remission F33.42 and Anxiety F41.9 [facility] [address] [id number] [address] [place] [phone] Dec, [facility] [address] [id number] [address] [place] [phone] Nov, Anxiety F41.9 [facility] [address] [id number] [address] [place] [phone] Nov, [facility] [address] [id number] [address] [place] [phone] Nov, Back pain M54.9 [facility] [address] [id number] [address] [place] [phone] Nov, [facility] [address] [id number] [address] [place] [phone] Nov, Back pain M54.9 [facility] [address] [id number] [address] [place] [phone] Nov, Anxiety F41.9 [facility] [address] [id number] [address] [place] [phone] Nov, [facility] [address] [id number] [address] [place] [phone] Oct, Back pain M54.9 [facility] [address] [id number] [address] [place] [phone] Oct, [facility] [address] [id number] [address] [place] [phone] Oct, [facility] [address] [id number] [address] [place] [phone] Oct, [facility] [address] [id number] [address] [place] [phone] September, Back pain M54.9 [facility] [address] [id number] [address] [place] [phone] September, [facility] [address] [id number] [address] [place] [phone] September, [facility] [address] [id number] [address] [place] [phone] September, [facility] [address] [id number] [address] [place] [phone] Aug, Back pain M54.9 [facility] [address] [id number] [address] [place] [phone] Aug, Anxiety F41.9 [facility] [address] [facility] [id number] [address] [place] [phone] Aug, [facility] [address] [facility] [id number] [address] [place] [phone] Aug, Pressure ulcer of other site , stage 3 L89.893 and COPD (chronic obstructive pulmonary disease) J44.9 [facility] [address] [id number] [address] [place] [phone] Aug, History of smoking Z87.891 [facility] [address] [facility] [id number] [address] [place] [phone] Jul, Type 2 diabetes mellitus wit h diabetic peripheral angiopathy without gangrene E11.51 [facility] [address] [facility] [id number] [address] [place] [phone] Jul, Back pain M54.9 [facility] [address] [id number] [address] [place] [phone] Jul, Anxiety F41.9 [facility] [address] [id number] [address] [place] [phone] Jul, [facility] [address] [facility] [id number] [address] [place] [phone] Jul, Back pain M54.9 [facility] [address] [facility] [id number] [address] [place] [phone] Jul, Back pain M54.9 [facility] [address] [id number] [address] [place] [phone] Jul, Lumbar radiculopathy, chroni c M54.16 ; Hypertension I10 and Type 2 diabetes mellitus with diabetic peripheral angiopathy without gangrene E11.51 [facility] [address] [id number] [address] [place] [phone] Jul, Back pain M54.9 [facility] [address] [id number] [address] [place] [phone] Jul, Back pain M54.9 and Anxiety F41.9 [place] [address] [id number] [address] [place] [phone] Jul, [facility] [address] [id number] [address] [place] [phone] May, Back pain M54.9 and Anxiety F41.9 [facility] [address] [id number] [address] [place] [phone] May, [facility] [address] [id number] [address] [place] [phone] Apr, Radiculopathy of lumbar rhiannon on M54.16 ; Back pain M54.9 and Anxiety F41.9 [facility] [address] [id number] [address] [place] [phone] Apr, Diabetes E11.9 ; Muscle spas m M62.838 and Lumbar radiculopathy, chronic M54.16 [facility] [address] [id number] [address] [place] [phone] Apr, [facility] [address] [id number] [address] [place] [phone] Apr, [facility] [address] [id number] [address] [place] [phone] Mar, Back pain M54.9 and Anxiety F41.9 [facility] [address] [id number] [address] [place] [phone] Mar, [facility] [address] [id number] [address] [place] [phone] Mar, [facility] [address] [id number] [address] [place] [phone] Mar, [facility] [address] [id number] [address] [place] [phone] Mar, Encounter for immunization Z 23 [facility] [address] [id number] [address] [place] [phone] Feb, Back pain M54.9 and Anxiety F41.9 [facility] [address] [id number] [address] [place] [phone] Feb, Back pain M54.9 and Anxiety F41.9 [facility] [address] [id number] [address] [place] [phone] Jan, Back pain M54.9 and Anxiety F41.9 [facility] [address] [id number] [address] [place] [phone] Jan, [facility] [address] [id number] [address] [place] [phone] Dec, [facility] [address] [id number] [address] [place] [phone] Dec, Back pain M54.9 and Anxiety F41.9 [facility] [address] [id number] [address] [place] [phone] 13 Dec, 2017 Diabetes E11.9 ; Type 2 diab etes mellitus with diabetic peripheral angiopathy without gangrene E11.51 ; Lumbar radiculopathy, chronic M54.16 ; COPD (chronic obstructive pulmonary disease) J44.9 and Anxiety F41.9 [facility] [address] [id number] [address] [place] [phone] Dec, Back pain M54.9 and Anxiety F41.9 [facility] [address] [id number] [address] [place] [phone] Nov, Back pain M54.9 and Anxiety F41.9 [facility] [address] [id number] [address] [place] [phone] Oct, [facility] [address] [id number] [address] [place] [phone] Oct, Back pain M54.9 and Anxiety F41.9 [facility] [address] [id number] [address] [place] [phone] September, Anxiety F41.9 and Back pain M54.9 [facility] [address] [id number] [address] [place] [phone] September, Diabetes E11.9 ; Hypertensio n I10 ; COPD (chronic obstructive pulmonary disease) J44.9 and Lumbar radiculopathy, chronic M54.16 [facility] [address] [id number] [address] [place] [phone] September, Anxiety F41.9 [facility] [address] [id number] [address] [place] [phone] Aug, [facility] [address] [id number] [address] [place] [phone] Aug, [facility] [address] [id number] [address] [place] [phone] Aug, Anxiety F41.9 and Back pain M54.9 [facility] [address] [id number] [address] [place] [phone] Aug, Medicare annual wellness vis it, initial [...] peripheral angiopathy without gangrene E11.51 and senior living current use of insulin Z79.4 [facility] [address] [id number] [address] [place] [phone] Jul, Back pain M54.9 [facility] [address] [id number] [address] [place] [phone] Jul, [facility] [address] [id number] [address] [place] [phone] Jul, Anxiety F41.9 and Back pain M54.9 [facility] [address] [id number] [address] [place] [phone] Jul, Diabetes E11.9 [facility] [address] [id number] [address] [place] [phone] May, [facility] [address] [id number] [address] [place] [phone] May, Diabetes E11.9 ; Anxiety F41 .9 ; Back pain M54.9 and COPD (chronic obstructive pulmonary disease) J44.9 [facility] [address] [id number] [address] [place] [phone] May, Back pain M54.9 [facility] [address] [id number] [address] [place] [phone] May, [facility] [address] [id number] [address] [place] [phone] Apr, Back pain M54.9 [facility] [address] [id number] [address] [place] [phone] Mar, Back pain M54.9 [facility] [address] [id number] [address] [place] [phone] Mar, [facility] [address] [id number] [address] [place] [phone] Mar, [facility] [address] [place] [id number] [address] [place] [phone] 14 Mar, 2017 Radiculopathy of lumbar rhiannon on M54.16 [facility] [address] [place] [id number] [place] [phone] 13 Mar, 2017 [facility] [address] [place] [id number] [place] [phone] 07 Mar, 2017 Encounter for immunization Z 23 and Lumbar radiculopathy, chronic M54.16 [facility] [address] [place] [id number] [address] [place] [phone] 01 Mar, 2017 Back pain M54.9 and Anxiety F41.9 [facility] [address] [place] [id number] [place] [phone] 10 Feb, 2017 Acute bilateral low back byo n with left-sided sciatica M54.42 and Acute bilateral low back pain with right-sided sciatica M54.41 [place] [address] [phone] Feb, [place] [address] [phone] Feb, Back pain M54.9 [place] [address] [place] [id number] [place] [phone] 05 Jan, 2017 Back pain M54.9 and Anxiety F41.9 [place] [address] [phone] 05 Jan, 2017 Diabetes E11.9 [place] [address] [place] [id number] [place] [phone] 14 Dec, 2016 Diabetes E11.9 ; Back pain M 54.9 ; Anxiety F41.9 and Insulin long- term use Z79.4 [facility] [address] [place] [id number] [address] [place] [phone] Dec, Anxiety F41.9 [place] [address] [place] [id number] [place] [phone] 08 Dec, 2016 Back pain M54.9 [facility] [address] [id number] [address] [place] [phone] Nov, Back pain M54.9 [facility] [address] [id number] [address] [place] [phone] Oct, Back pain M54.9 and Anxiety F41.9 [facility] [address] [id number] [address] [place] [phone] September, Back pain M54.9 [facility] [address] [id number] [address] [place] [phone] September, Back pain M54.9 and Anxiety F41.9 [facility] [address] [id number] [address] [place] [phone] Aug, Diabetes E11.9 ; Anxiety F41 .9 ; Back pain M54.9 and PAD (peripheral artery disease) I73.9 [facility] [address] [id number] [address] [place] [phone] Aug, Anxiety F41.9 [facility] [address] [id number] [address] [place] [phone] 14 Aug, 2016 Back pain M54.9 [facility] [address] [id number] [address] [place] [phone] 23 Jul, 2016 Back pain M54.9 [facility] [address] [id number] [address] [place] [phone] 13 Jul, 2016 Back pain M54.9 [facility] [address] [id number] [address] [place] [phone] 23 Jul, 2016 Back pain M54.9 [facility] [address] [id number] [address] [place] [phone] 16 Jul, 2016 Dorsalgia M54.9 [facility] [address] [id number] [address] [place] [phone] 14 Jul, 2016 [facility] [address] [id number] [address] [place] [phone] May, Back pain M54.9 [facility] [address] [id number] [address] [place] [phone] May, Diabetes E11.9 ; Anxiety F41 .9 ; Port catheter in place Z95.828 ; Encounter for immunization Z23 and Insulin long-term use Z79.4 [facility] [address] [id number] [address] [place] [phone] Apr, Back pain M54.9 [facility] [address] [id number] [address] [place] [phone] Apr, Back pain M54.9 [facility] [address] [id number] [address] [place] [phone] Apr, [facility] [address] [id number] [address] [place] [phone] Apr, Back pain M54.9 [facility] [address] [id number] [address] [place] [id number] Mar, COPD (chronic obstructive pu lmonary disease) J44.9 [facility] [address] [id number] [address] [place] [phone] Feb, [facility] [address] [id number] [address] [place] [phone] 30 Jan, 2016 [facility] [address] [id number] [address] [place] [phone] Jan, [facility] [address] [id number] [address] [place] [phone] Jan, [facility] [address] [id number] [address] [place] [id number] Jan, [facility] [address] [id number] [address] [place] [phone] Dec, Diabetes E11.9 ; Hypoxia R09 .02 and Back pain M54.9 [facility] [address] [id number] [address] [place] [phone] Dec, [facility] [address] [id number] [address] [place] [phone] Nov, [facility] [address] [id number] [address] [place] [phone] Oct, Anxiety F41.9 [facility] [address] [id number] [address] [place] [phone] Oct, Back pain M54.9 [facility] [address] [id number] [address] [place] [phone] September, Back pain M54.9 [facility] [address] [id number] [address] [place] [phone] September, Diabetes E11.9 [facility] [address] [id number] [address] [place] [phone] September, [facility] [address] [id number] [address] [place] [phone] September, Diabetes E11.9 ; Insulin sarai g-term use Z79.4 and Back pain M54.9 [facility] [address] [id number] [address] [place] [phone] Aug, Back pain M54.9 [facility] [address] [id number] [address] [place] [phone] Aug, Back pain M54.9 ; Anxiety F4 1.9 and Arthropathy, unspecified M12.9 [facility] [address] [id number] [address] [place] [phone] Jul, Back pain M54.9 [facility] [address] [id number] [address] [place] [phone] Jul, Anxiety F41.9 [facility] [address] [id number] [address] [place] [phone] Jul, Back pain M54.9 [facility] [address] [id number] [address] [place] [phone] Jul, [facility] [address] [id number] [address] [place] [phone] Jul, [facility] [address] [facility] [id number] [address] [place] [phone] May, Back pain M54.9 ; Diabetes E 11.9 ; Insulin long-term use Z79.4 ; COPD (chronic obstructive pulmonary disease) J44.9 and Hypertension I10 [facility] [address] [id number] [address] [place] [phone] May, Chronic pain G89.29 [facility] [address] [id number] [address] [place] [phone] Apr, [facility] [address] [facility] [id number] [address] [place] [phone] Apr, [facility] [address] [id number] [address] [place] [phone] Mar, [facility] [address] [facility] [id number] [address] [place] [phone] Mar, Encounter for immunization Z 23 and Diabetes E11.9 [facility] [address] [facility] [id number] [address] [place] [phone] Feb, [facility] [address] [facility] [id number] [address] [place] [phone] Feb, [facility] [address] [facility] [id number] [address] [place] [phone] 23 Jan, 2015 [facility] [address] [id number] [address] [place] [phone] 16 Jan, 2015 [facility] [address] [id number] [address] [place] [phone] Dec, [facility] [address] [facility] [id number] [address] [place] [phone] Dec, [facility] [address] [id number] [address] [place] [phone] Dec, Unspecified arthropathy, sit e unspecified 716.90 and Diabetes mellitus type 2, uncontrolled 250.02 [facility] [address] [id number] [address] [place] [address], [place] [address] Dec, [facility] [address] [id number] [address] [place] [address], [place] [address] Nov, [facility] [address] [id number] [address] [place] [phone] Oct, [facility] [address] [id number] [address] [place] [address], [place] [address] September, [facility] [address] [id number] [address] [place] [phone] September, [facility] [address] [id number] [address] [place] [phone] September, [facility] [address] [id number] [address] [place] [phone] September, [facility] [address] [id number] [address] [place] [phone] Aug, [facility] [address] [id number] [address] [place] [phone] Aug, [facility] [address] [id number] [address] [place] [phone] Jul, [facility] [address] [id number] [address] [place] [phone] Jul, [facility] [address] [id number] [address] [place] [phone] Jul, [facility] [address] [id number] [address] [place] [id number] [address], [address] [facility] [address] [id number] [address] [place] [phone] 16 Jul, 2014 [facility] [address] [id number] [address] [place] [address], [place] [address] 16 Jul, 2014 [facility] [address] [id number] [address] [place] [address], [place] [address] 16 Jul, 2014 [facility] [address] [id number] [address] [place] [address], [place] [address] 16 Jul, 2014 [facility] [address] [id number] [address] [place] [address], [place] [address] 16 Jul, 2014 [facility] [address] [id number] [address] [place] [address], [place] [address] 13 Jul, 2014 [facility] [address] [id number] [address] [place] [address], [place] [address] 13 Jul, 2014 [facility] [address] [id number] [address] [place] [address], [place] [address] 09 Jul, 2014 [facility] [address] [id number] [address] [place] [address], [place] [address] 09 Jul, 2014 [facility] [address] [id number] [address] [place] [address], [place] [address] 17 Jul, 2014 [facility] [address] [id number] [address] [place] [address], [place] [address] 17 Jul, 2014 [facility] [address] [id number] [address] [place] [address], [place] [address] 16 Jul, 2014 [facility] [address] [id number] [address] [place] [address], [place] [address] 16 Jul, 2014 [facility] [address] [id number] [address] [place] [address], [place] [address] 16 Jul, 2014 [facility] [address] [id number] [address] [place] [address], [place] [address] 16 Jul, 2014 [facility] [address] [id number] [address] [place] [address], [place] [address] 16 Jul, 2014 [facility] [address] [id number] [address] [place] [address], [place] [address] Jul, 2014 [facility] [address] [id number] [address] [place] [address], [place] [address] Jul, 2014 [facility] [address] [id number] [address] [place] [address], [place] [address] Jul, 2014 [facility] [address] [id number] [address] [place] [address], [place] [address] Jul, 2014 [facility] [address] [id number] [address] [place] [address], [place] [address] Jul, 2014 [facility] [address] [id number] [address] [place] [address], [place] [address] Jul, 2014 [facility] [address] [id number] [address] [place] [address], [place] [address] Jul, 2014 [facility] [address] [id number] [address] [place] [address], [place] [address] Jul, 2014 [facility] [address] [id number] [address] [place] [address], [place] [address] Jul, [facility] [address] [id number] [address] [place] [address], [place] [address] May, [facility] [address] [id number] [address] [place] [address], [place] [address] May, [facility] [address] [id number] [address] [place] [address], [place] [address] May, [facility] [address] [id number] [address] [place] [address], [place] [address] May, [facility] [address] [id number] [address] [place] [address], [place] [address] May, [facility] [address] [id number] [address] [place] [address], [place] [address] May, [facility] [address] [id number] [address] [place] [address], [place] [address] May, [facility] [address] [id number] [address] [place] [address], [place] [address] May, [facility] [address] [id number] [address] [place] [address], [place] [address] May, [facility] [address] [id number] [address] [place] [address], [place] [address] May, [facility] [address] [id number] [address] [place] [address], [place] [address] Apr, [facility] [address] [id number] [address] [place] [address], [place] [address] Apr, [facility] [address] [id number] [address] [place] [address], [place] [address] Apr, [facility] [address] [id number] [address] [place] [address], [place] [address] Apr, [facility] [address] [id number] [address] [place] [address], [place] [address] Apr, [facility] [address] [id number] [address] [place] [address], [place] [address] Apr, [facility] [address] [id number] [address] [place] [address], [place] [address] Mar, [facility] [address] [id number] [address] [place] [address], [place] [address] Mar, [facility] [address] [id number] [address] [place] [address], [place] [address] Mar, [facility] [address] [id number] [address] [place] [address], [place] [address] Mar, [facility] [address] [id number] [address] [place] [address], [place] [address] Mar, [facility] [address] [id number] [address] [place] [address], [place] [address] Mar, [facility] [address] [id number] [address] [place] [address], [place] [address] Mar, [facility] [address] [id number] [address] [place] [address], [place] [address] Mar, [facility] [address] [id number] [address] [place] [address], [place] [address] Mar, [facility] [address] [id number] [address] [place] [address], [place] [address] Mar, [facility] [address] [id number] [address] [place] [address], [place] [address] Mar, [facility] [address] [id number] [address] [place] [address], [place] [address] Feb, [facility] [address] [id number] [address] [place] [address], [place] [address] Feb, [facility] [address] [id number] [address] [place] [address], [place] [address] Feb, [facility] [address] [id number] [address] [place] [address], [place] [address] Feb, [facility] [address] [id number] [address] [place] [address], [place] [address] Feb, [facility] [address] [id number] [address] [place] [address], [place] [address] Feb, [facility] [address] [id number] [address] [place] [address], [place] [address] Feb, [facility] [address] [id number] [address] [place] [address], [place] [address] Feb, [facility] [address] [id number] [address] [place] [address], [place] [address] Feb, [facility] [address] [id number] [address] [place] [address], [place] [address] Feb, [facility] [address] [id number] [address] [place] [address], [place] [address] 22 Jan, 2013 [facility] [address] [id number] [facility] [place] [address] 22 Jan, 2013 [facility] [address] [id number] [address] [place] [address], [place] [address] 16 Jan, 2014 [facility] [address] [id number] [address] [place] [address], [place] [address] 16 Jan, 2014 [facility] [address] [id number] [address] [place] [address], [place] [address] 12 Jan, 2014 [facility] [address] [id number] [address] [place] [address], [place] [address] Jan, [facility] [address] [id number] [address] [place] [address], [place] [address] Jan, [facility] [address] [id number] [address] [place] [address], [place] [address] Dec, [facility] [address] [id number] [address] [place] [address], [place] [address] Dec, [facility] [address] [id number] [address] [place] [address], [place] [address] Dec, [facility] [address] [id number] [address] [place] [address], [place] [address] Dec, [facility] [address] [id number] [address] [place] [address], [place] [address] Dec, [facility] [address] [id number] [address] [place] [address], [place] [address] Dec, [facility] [address] [id number] [address] [place] [address], [place] [address] Dec, [facility] [address] [id number] [address] [place] [address], [place] [address] Dec, [facility] [address] [id number] [address] [place] [address], [place] [address] Oct, [facility] [address] [id number] [address] [place] [address], [place] [address] Oct, [facility] [address] [id number] [address] [place] [address], [place] [address] September, [facility] [address] [id number] [address] [place] [address], [place] [address] September, [facility] [address] [id number] [address] [place] [address], [place] [address] September, [facility] [address] [id number] [address] [place] [address], [place] [address] September, [facility] [address] [id number] [address] [place] [address], [place] [address] September, [facility] [address] [id number] [address] [place] [address], [place] [address] September, [facility] [address] [id number] [address] [place] [address], [place] [address] September, [facility] [address] [id number] [address] [place] [address], [place] [address] Aug, [facility] [address] [id number] [address] [place] [address], [place] [address] Aug, [facility] [address] [id number] [address] [place] [address], [place] [address] Jul, [facility] [address] [id number] [address] [place] [address], [place] [address] 24 Jul, 2013 [facility] [address] [id number] [address] [place] [address], [place] [address] 17 Jul, 2013 [facility] [address] [id number] [address] [place] [address], [place] [address] 17 Jul, 2013 [facility] [address] [id number] [address] [place] [address], [place] [address] 14 Jul, 2013 [facility] [address] [id number] [address] [place] [address], [place] [address] 14 Jul, 2013 [facility] [address] [id number] [address] [place] [address], [place] [address] Jul, [facility] [address] [id number] [address] [place] [address], [place] [address] 03 Jul, 2013 [facility] [address] [id number] [address] [place] [address], [place] [address] 15 May, 2013 [facility] [address] [id number] [address] [place] [address], [place] [address] 15 May, 2013 [facility] [address] [id number] [address] [place] [address], [place] [address] May, [facility] [address] [id number] [address] [place] [address], [place] [address] May, [facility] [address] [id number] [address] [place] [address], [place] [address] Apr, [facility] [address] [id number] [address] [place] [address], [place] [address] Mar, [facility] [address] [id number] [address] [place] [address], [place] [address] Mar, [facility] [address] [id number] [address] [place] [address], [place] [address] Mar, [facility] [address] [id number] [address] [place] [address], [place] [address] Mar, [facility] [address] [id number] [address] [place] [address], [place] [address] 18 Mar, 2013 [facility] [address] [id number] [address] [place] [address], [place] [address] Mar, [facility] [address] [id number] [address] [place] [address], [place] [address] Mar, [facility] [address] [id number] [address] [place] [address], [place] [address] Mar, [facility] [address] [id number] [address] [place] [address], [place] [address] Mar, [facility] [address] [id number] [address] [place] [address], [place] [address] Mar, [facility] [address] [id number] [address] [place] [address], [place] [address] Mar, [facility] [address] [id number] [address] [place] [address], [place] [address] Mar, [facility] [address] [id number] [address] [place] [address], [place] [address] Feb, [facility] [address] [id number] [address] [place] [address], [place] [address] Feb, [facility] [address] [id number] [address] [place] [address], [place] [address] Feb, [facility] [address] [id number] [address] [place] [address], [place] [address] Feb, [facility] [address] [id number] [address] [place] [address], [place] [address] Feb, [facility] [address] [id number] [address] [place] [address], [place] [address] Jan, [facility] [address] [id number] [address] [place] [address], [place] [address] Dec, [facility] [address] [id number] [address] [place] [address], [place] [address] Dec, [facility] [address] [id number] [address] [place] [address], [place] [address] Dec, [facility] [address] [id number] [address] [place] [address], [place] [address] Nov, [facility] [address] [id number] [address] [place] [address], [place] [address] Nov, [facility] [address] [id number] [address] [place] [address], [place] [address] Nov, [facility] [address] [id number] [address] [place] [address], [place] [address] Oct, [facility] [address] [id number] [address] [place] [address], [place] [address] Oct, [facility] [address] [id number] [address] [place] [address], [place] [address] Oct, [facility] [address] [id number] [address] [place] [address], [place] [address] September, [facility] [address] [id number] [address] [place] [address], [place] [address] September, [facility] [address] [id number] [address] [place] [address], [place] [address] September, [facility] [address] [id number] [address] [place] [address], [place] [address] September, [facility] [address] [id number] [address] [place] [address], [place] [address] September, [facility] [address] [id number] [address] [place] [address], [place] [address] Aug, [facility] [address] [id number] [address] [place] [address], [place] [address] Aug, [facility] [address] [id number] [address] [place] [address], [place] [address] Aug, [facility] [address] [id number] [address] [place] [address], [place] [address] Jul, [facility] [address] [id number] [address] [place] [address], [place] [address] Jul, [facility] [address] [id number] [address] [place] [address], [place] [address] Jul, [facility] [address] [id number] [address] [place] [address], [place] [address] Jul, [facility] [address] [id number] [address] [place] [address], [place] [address] Jul, [facility] [address] [id number] [address] [place] [address], [place] [address] Jul, [facility] [address] [id number] [address] [place] [address], [place] [address] Jul, [facility] [address] [id number] [address] [place] [address], [place] [address] May, [facility] [address] [id number] [address] [place] [address], [place] [address] May, [facility] [address] [id number] [address] [place] [address], [place] [address] May, [facility] [address] [id number] [address] [place] [address], [place] [address] Apr, [facility] [address] [id number] [address] [place] [address], [place] [address] Apr, [facility] [address] [id number] [address] [place] [address], [place] [address] Apr, [facility] [address] [id number] [address] [place] [address], [place] [address] Apr, [facility] [address] [id number] [address] [place] [address], [place] [address] Apr, [facility] [address] [id number] [address] [place] [address], [place] [address] Mar, [facility] [address] [id number] [address] [place] [address], [place] [address] 29 Mar, 2012 [facility] [address] [id number] [address] [place] [address], [place] [address] 15 Mar, 2012 [facility] [address] [id number] [address] [place] [address], [place] [address] 15 Mar, 2012 [facility] [address] [id number] [address] [place] [address], [place] [address] Feb, [facility] [address] [id number] [address] [place] [address], [place] [address] Feb, [facility] [address] [id number] [address] [place] [address], [place] [address] Feb, [facility] [address] [id number] [address] [place] [address], [place] [address] Feb, [facility] [address] [id number] [address] [place] [address], [place] [address] Feb, [facility] [address] [id number] [address] [place] [address], [place] [address] Jan, [facility] [address] [id number] [address] [place] [address], [place] [address] Dec, [facility] [address] [id number] [address] [place] [address], [place] [address] Dec, [facility] [address] [id number] [address] [place] [address], [place] [address] Dec, [facility] [address] [id number] [address] [place] [address], [place] [address] Nov, [facility] [address] [id number] [address] [place] [address], [place] [address] Nov, [facility] [address] [id number] [address] [place] [address], [place] [address] Nov, [facility] [address] [id number] [address] [place] [address], [place] [address] Oct, [facility] [address] [id number] [address] [place] [address], [place] [address] Oct, [facility] [address] [id number] [address] [place] [address], [place] [address] Oct, [facility] [address] [id number] [address] [place] [address], [place] [address] Oct, [facility] [address] [id number] [address] [place] [address], [place] [address] September, [facility] [address] [id number] [address] [place] [address], [place] [address] September, [facility] [address] [id number] [address] [place] [address], [place] [address] Aug, [facility] [address] [id number] [address] [place] [address], [place] [address] Aug, [facility] [address] [id number] [address] [place] [address], [place] [address] Aug, [facility] [address] [id number] [address] [place] [address], [place] [address] Aug, [facility] [address] [id number] [address] [place] [address], [place] [address] Aug, [facility] [address] [id number] [address] [place] [address], [place] [address] Aug, [facility] [address] [id number] [address] [place] [address], [place] [address] Aug, [facility] [address] [id number] [address] [place] [address], [place] [address] Jul, [facility] [address] [id number] [address] [place] [address], [place] [address] Jul, [facility] [address] [id number] [address] [place] [address], [place] [address] Jul, [facility] [address] [id number] [address] [place] [address], [place] [address] May, [facility] [address] [id number] [address] [place] [address], [place] [address] May, [facility] [address] [id number] [address] [place] [address], [place] [address] May, [facility] [address] [id number] [address] [place] [address], [place] [address] Apr, [facility] [address] [id number] [address] [place] [address] Apr, [facility] [address] [id number] [address] [place] [address] Mar, [facility] [address] [id number] [address] [place] [address] Mar, [facility] [address] [id number] [address] [place] [address] Mar, [facility] [address] [id number] [address] [place] [address] Mar, [facility] [address] [id number] [address] [place] [address] Mar, [facility] [address] [id number] [address] [place] [address] Mar, [facility] [address] [id number] [address] [place] [address] Feb, [facility] [address] [id number] [address] [place] [phone] Feb, [facility] [address] [id number] [address] [place] [id number] Feb, IMMUNIZATIONS No Known Immunizations SOCIAL HISTORY [...] Hospitalization History foot infections x 3 2015 Hospitalization History [facility] - right big t oe removed 2018
--- OUTSIDE RECORDS SUMMARY | 2020-01-03 07:34 | XMS REPORT ---
Author Author Tra SILVERIO Organization [facility] Address [address] [place] [address] Care Team Providers Care Prop Sawyer Name Role Phone FERNY SILVERIO Unavailable PROBLEMS Type Condition ICD9-CM Code NOA60-LN Code Onset Dates Condition S tatus SNOMED Code Problem Hypertension I10 Active 5237626 3 Problem Hypoxia R09.02 Active 723512843 Problem COPD (chronic obstructive pulmonary disease) J44.9 Active 42045868 Problem Lumbar radiculopathy, chronic M54.16 Active 990766317 Problem intermediate current use of insulin Z79.4 Active 278561725 Problem Recurrent major depressive disorder, in full remission F33.42 Active 196882729 Problem Hyperlipidemia, unspecified E78.5 Ac tive 94793592 Problem PAD (peripheral artery disease) I73.9 Active 397441694 Problem Type 2 diabetes mellitus with other specified complication E11.69 Active 488616058513 Problem Anxiety F41.9 Active 20713160 Problem Type 2 diabetes mellitus wit h diabetic peripheral angiopathy without gangrene E11.51 Active 600652498 Problem ED (erectile dysfunction) of organic origin N52.9 Active 209269263 Problem Arthritis M19.90 Active 4336005 Problem Morbid (severe) obesity due to excess calories E66 .01 Active 051852092 ALLERGIES No Information ENCOUNTERS Encounter Location Date Diagnosis [facility] [id number] [place] [phone] 10 Aug, 2019 Anxiety F41.9 ; Back pain M5 4.9 and Lumbar radiculopathy, chronic M54.16 [facility] [address] [place] [id number] [place] [id number] 09 Aug, 2019 Lumbar radiculopathy, chroni c M54.16 ; Anxiety F41.9 ; Type 2 diabetes mellitus with other specified complication E11.69 and Hypertension I10 [facility] [address] [place] [id number] [address] [place] [id number] 30 Jul, 2019 [facility] [address] [id number] [address] [place] [id number] 27 Jul, 2019 Lumbar radiculopathy, chroni c M54.16 ; Back pain M54.9 and Anxiety F41.9 [facility] [address] [id number] [address] [place] [id number] 23 Jul, 2019 [facility] [address] [id number] [address] [place] [id number] 13 Jul, 2019 Anxiety F41.9 [place] [address] [id number] [address] [place] [id number] 12 Jul, 2019 Anxiety F41.9 [place] [address] [id number] [address] [place] [phone] 02 Jul, 2019 Back pain M54.9 [place] [address] [id number] [address] [place] [id number] 02 Jul, 2019 Back pain M54.9 [place] [address] [id number] [address] [place] [id number] 28 Jul, 2019 Lumbar radiculopathy, chroni c M54.16 [place] [address] [id number] [address] [place] [id number] 28 Jul, 2019 Back pain M54.9 [place] [address] [facility] [id number] [address] [place] [id number] 07 Jul, 2019 Encounter for Medicare annua l wellness exam Z00.00 ; COPD (chronic obstructive [...] diabetes mellitus with other specified complication E11.69 [facility] [address] [id number] [address] [place] [id number] Jul, Back pain M54.9 [facility] [address] [id number] [address] [place] [id number] Jul, Anxiety F41.9 [facility] [address] [id number] [address] [place] [phone] May, [facility] [address] [id number] [address] [place] [id number] May, Lumbar radiculopathy, chroni c M54.16 [facility] [address] [id number] [address] [place] [phone] May, Back pain M54.9 [facility] [address] [id number] [address] [place] [id number] May, [facility] [address] [id number] [address] [place] [phone] May, Back pain M54.9 and Anxiety F41.9 [facility] [address] [id number] [address] [place] [phone] May, [facility] [address] [id number] [address] [place] [address] May, Type 2 diabetes mellitus wit h diabetic peripheral angiopathy without gangrene E11.51 ; Arthritis M19.90 ; ED (erectile dysfunction) of organic origin N52.9 ; Morbid (severe) obesity due to excess calories E66.01 and Lumbar radiculopathy, chronic M54.16 [facility] [address] [id number] [address] [place] [id number] May, Diabetes E11.9 [facility] [address] [id number] [address] [place] [phone] Apr, [facility] [address] [id number] [address] [place] [phone] Apr, Back pain M54.9 [facility] [address] [id number] [address] [place] [id number] Apr, [facility] [address] [id number] [address] [place] [phone] Apr, Anxiety F41.9 [facility] [address] [id number] [address] [place] [id number] Apr, Back pain M54.9 and Lumbar r adiculopathy, chronic M54.16 [facility] [address] [id number] [address] [place] [phone] Apr, Back pain M54.9 ; Anxiety F4 1.9 and Lumbar radiculopathy, chronic M54.16 [facility] [address] [id number] [address] [place] [phone] Mar, [facility] [address] [id number] [address] [place] [id number] Mar, [facility] [address] [facility] [id number] [address] [place] [phone] Mar, Back pain M54.9 [facility] [address] [facility] [id number] [address] [place] [phone] Mar, [facility] [address] [facility] [id number] [address] [place] [id number] Feb, Type 2 diabetes mellitus wit h diabetic peripheral angiopathy without gangrene E11.51 ; Lumbar radiculopathy, chronic M54.16 ; ED (erectile dysfunction) of organic origin N52.9 ; Encounter for immunization Z23 ; COPD (chronic obstructive pulmonary disease) J44.9 and Anxiety F41.9 [facility] [address] [facility] [id number] [address] [place] [id number] Feb, Back pain M54.9 [facility] [address] [id number] [address] [place] [phone] Feb, [facility] [address] [facility] [id number] [address] [place] [phone] Feb, [facility] [address] [id number] [address] [place] [id number] Feb, [facility] [address] [id number] [address] [place] [phone] Feb, Back pain M54.9 [facility] [address] [id number] [address] [place] [phone] Feb, [facility] [address] [id number] [address] [place] [id number] Jan, Anxiety F41.9 [facility] [address] [id number] [address] [place] [phone] Jan, Anxiety F41.9 [facility] [address] [id number] [address] [place] [phone] Jan, [facility] [address] [id number] [address] [place] [phone] Jan, [facility] [address] [id number] [address] [place] [phone] Jan, Back pain M54.9 [facility] [address] [id number] [address] [place] [phone] Jan, [facility] [address] [id number] [address] [place] [phone] Dec, Acute non-recurrent frontal sinusitis J01.10 [facility] [address] [id number] [address] [place] [id number] Dec, Acute non-recurrent frontal sinusitis J01.10 [facility] [address] [id number] [address] [place] [id number] Dec, Type 2 diabetes mellitus wit h diabetic peripheral angiopathy without gangrene E11.51 ; Lumbar radiculopathy, chronic M54.16 ; Recurrent major depressive disorder, in full remission F33.42 and Anxiety F41.9 [facility] [address] [id number] [address] [place] [phone] Dec, [facility] [address] [id number] [address] [place] [phone] Nov, Anxiety F41.9 [facility] [address] [id number] [address] [place] [phone] Nov, [facility] [address] [id number] [address] [place] [phone] Nov, Back pain M54.9 [facility] [address] [id number] [address] [place] [phone] Nov, [facility] [address] [id number] [address] [place] [phone] Nov, Back pain M54.9 [facility] [address] [id number] [address] [place] [id number] Nov, Anxiety F41.9 [facility] [address] [id number] [address] [place] [phone] Nov, [facility] [address] [id number] [address] [place] [id number] Oct, Back pain M54.9 [facility] [address] [id number] [address] [place] [phone] Oct, [facility] [address] [id number] [address] [place] [id number] Oct, [facility] [address] [id number] [address] [place] [phone] Oct, [facility] [address] [id number] [address] [place] [id number] September, Back pain M54.9 [facility] [address] [id number] [address] [place] [phone] September, [facility] [address] [id number] [address] [place] [phone] September, [facility] [address] [id number] [address] [place] [phone] September, [facility] [address] [id number] [address] [place] [phone] Aug, Back pain M54.9 [facility] [address] [id number] [address] [place] [phone] Aug, Anxiety F41.9 [facility] [address] [id number] [address] [place] [id number] Aug, [facility] [address] [id number] [address] [place] [address] Aug, Pressure ulcer of other site , stage 3 L89.893 and COPD (chronic obstructive pulmonary disease) J44.9 [facility] [address] [id number] [address] [place] [address] Aug, History of smoking Z87.891 [facility] [address] [id number] [address] [place] [id number] Jul, Type 2 diabetes mellitus wit h diabetic peripheral angiopathy without gangrene E11.51 [facility] [address] [id number] [address] [place] [phone] Jul, Back pain M54.9 [facility] [address] [id number] [address] [place] [phone] Jul, Anxiety F41.9 [facility] [address] [id number] [address] [place] [id number] Jul, [facility] [address] [id number] [address] [place] [phone] Jul, Back pain M54.9 [facility] [address] [id number] [address] [place] [id number] Jul, Back pain M54.9 [facility] [address] [facility] [id number] [address] [place] [id number] Jul, Lumbar radiculopathy, chroni c M54.16 ; Hypertension I10 and Type 2 diabetes mellitus with diabetic peripheral angiopathy without gangrene E11.51 [facility] [address] [id number] [address] [place] [address] Jul, Back pain M54.9 [facility] [address] [id number] [address] [place] [address] Jul, Back pain M54.9 and Anxiety F41.9 [facility] [address] [id number] [address] [place] [id number] Jul, [facility] [address] [facility] [id number] [address] [place] [phone] May, Back pain M54.9 and Anxiety F41.9 [place] [address] [place] [id number] [address] [place] [id number] May, [facility] [address] [facility] [id number] [address] [place] [address] Apr, Radiculopathy of lumbar rhiannon on M54.16 ; Back pain M54.9 and Anxiety F41.9 [place] [address] [place] [id number] [address] [place] [address] Apr, Diabetes E11.9 ; Muscle spas m M62.838 and Lumbar radiculopathy, chronic M54.16 [facility] [address] [facility] [id number] [address] [place] [id number] Apr, [facility] [address] [id number] [address] [place] [id number] Apr, [facility] [address] [facility] [id number] [address] [place] [phone] Mar, Back pain M54.9 and Anxiety F41.9 [facility] [address] [facility] [id number] [address] [place] [phone] Mar, [facility] [address] [id number] [address] [place] [phone] Mar, [facility] [address] [id number] [address] [place] [id number] Mar, [facility] [address] [id number] [address] [place] [phone] Mar, Encounter for immunization Z 23 [facility] [address] [id number] [address] [place] [phone] Feb, Back pain M54.9 and Anxiety F41.9 [facility] [address] [id number] [address] [place] [phone] Feb, Back pain M54.9 and Anxiety F41.9 [facility] [address] [id number] [address] [place] [phone] Jan, Back pain M54.9 and Anxiety F41.9 [facility] [address] [id number] [address] [place] [phone] Jan, [facility] [address] [id number] [address] [place] [phone] Dec, [facility] [address] [id number] [address] [place] [phone] Dec, Back pain M54.9 and Anxiety F41.9 [facility] [address] [id number] [address] [place] [phone] Dec, Diabetes E11.9 ; Type 2 diab etes mellitus with diabetic peripheral angiopathy without gangrene E11.51 ; Lumbar radiculopathy, chronic M54.16 ; COPD (chronic obstructive pulmonary disease) J44.9 and Anxiety F41.9 [facility] [address] [id number] [address] [place] [address] Dec, Back pain M54.9 and Anxiety F41.9 [facility] [address] [facility] [id number] [address] [place] [address] Nov, Back pain M54.9 and Anxiety F41.9 [facility] [address] [id number] [address] [place] [id number] Oct, [facility] [address] [id number] [address] [place] [phone] Oct, Back pain M54.9 and Anxiety F41.9 [facility] [address] [id number] [address] [place] [phone] September, Anxiety F41.9 and Back pain M54.9 [place] [address] [id number] [address] [place] [phone] September, Diabetes E11.9 ; Hypertensio n I10 ; COPD (chronic obstructive pulmonary disease) J44.9 and Lumbar radiculopathy, chronic M54.16 [place] [address] [id number] [address] [place] [address] September, Anxiety F41.9 [place] [address] [id number] [address] [place] [phone] Aug, [facility] [address] [id number] [address] [place] [phone] Aug, [facility] [address] [facility] [id number] [address] [place] [address] Aug, Anxiety F41.9 and Back pain M54.9 [place] [address] [facility] [id number] [address] [place] [phone] Aug, Medicare annual wellness vis it, initial [...] peripheral angiopathy without gangrene E11.51 and intermediate current use of insulin Z79.4 [place] [address] [id number] [address] [place] [phone] Jul, Back pain M54.9 [facility] [address] [id number] [address] [place] [id number] Jul, [facility] [address] [id number] [address] [place] [id number] Jul, Anxiety F41.9 and Back pain M54.9 [facility] [address] [id number] [address] [place] [id number] Jul, Diabetes E11.9 [facility] [address] [id number] [address] [place] [phone] May, [facility] [address] [id number] [address] [place] [phone] May, Diabetes E11.9 ; Anxiety F41 .9 ; Back pain M54.9 and COPD (chronic obstructive pulmonary disease) J44.9 [facility] [address] [id number] [address] [place] [phone] May, Back pain M54.9 [facility] [address] [id number] [address] [place] [phone] May, [facility] [address] [id number] [address] [place] [id number] Apr, Back pain M54.9 [facility] [address] [id number] [address] [place] [phone] Mar, Back pain M54.9 [facility] [address] [id number] [address] [place] [phone] Mar, [facility] [address] [id number] [address] [place] [phone] Mar, [facility] [address] [id number] [address] [place] [id number] 14 Mar, 2017 Radiculopathy of lumbar rhiannon on M54.16 [facility] [address] [id number] [address] [place] [phone] Mar, [facility] [address] [facility] [id number] [address] [place] [phone] 07 Mar, 2017 Encounter for immunization Z 23 and Lumbar radiculopathy, chronic M54.16 [facility] [address] [id number] [address] [place] [phone] Mar, Back pain M54.9 and Anxiety F41.9 [facility] [address] [id number] [address] [place] [id number] Feb, Acute bilateral low back boy n with left-sided sciatica M54.42 and Acute bilateral low back pain with right-sided sciatica M54.41 [facility] [address] [facility] [id number] [address] [place] [phone] Feb, [facility] [address] [facility] [id number] [address] [place] [id number] Feb, Back pain M54.9 [facility] [address] [id number] [address] [place] [phone] 05 Jan, 2017 Back pain M54.9 and Anxiety F41.9 [facility] [address] [facility] [id number] [address] [place] [phone] 05 Jan, 2017 Diabetes E11.9 [facility] [address] [facility] [id number] [address] [place] [phone] Dec, Diabetes E11.9 ; Back pain M 54.9 ; Anxiety F41.9 and Insulin long- term use Z79.4 [facility] [address] [id number] [address] [place] [phone] Dec, Anxiety F41.9 [facility] [address] [facility] [id number] [address] [place] [id number] Dec, Back pain M54.9 [facility] [address] [facility] [id number] [address] [place] [phone] Nov, Back pain M54.9 [facility] [address] [id number] [address] [place] [id number] Oct, Back pain M54.9 and Anxiety F41.9 [facility] [address] [id number] [address] [place] [phone] September, Back pain M54.9 [facility] [address] [id number] [address] [place] [phone] September, Back pain M54.9 and Anxiety F41.9 [facility] [address] [id number] [address] [place] [id number] Aug, Diabetes E11.9 ; Anxiety F41 .9 ; Back pain M54.9 and PAD (peripheral artery disease) I73.9 [facility] [address] [id number] [address] [place] [id number] Aug, Anxiety F41.9 [facility] [address] [id number] [address] [place] [id number] Aug, Back pain M54.9 [facility] [address] [id number] [address] [place] [id number] Jul, Back pain M54.9 [facility] [address] [id number] [address] [place] [id number] Jul, Back pain M54.9 [facility] [address] [id number] [address] [place] [id number] 23 Jul, 2016 Back pain M54.9 [facility] [address] [id number] [address] [place] [id number] 16 Jul, 2016 Dorsalgia M54.9 [facility] [address] [id number] [address] [place] [id number] 14 Jul, 2016 [facility] [address] [id number] [address] [place] [id number] May, Back pain M54.9 [facility] [address] [id number] [address] [place] [id number] May, Diabetes E11.9 ; Anxiety F41 .9 ; Port catheter in place Z95.828 ; Encounter for immunization Z23 and Insulin long-term use Z79.4 [facility] [address] [id number] [address] [place] [id number] Apr, Back pain M54.9 [facility] [address] [id number] [address] [place] [id number] Apr, Back pain M54.9 [facility] [address] [id number] [address] [place] [id number] Apr, [facility] [address] [id number] [address] [place] [id number] Apr, Back pain M54.9 [facility] [address] [id number] [address] [place] [id number] Mar, COPD (chronic obstructive pu lmonary disease) J44.9 [facility] [address] [id number] [address] [place] [id number] Feb, [facility] [address] [id number] [address] [place] [id number] Jan, [facility] [address] [id number] [address] [place] [id number] Jan, [facility] [address] [id number] [address] [place] [id number] Jan, [facility] [address] [id number] [address] [place] [id number] Jan, [facility] [address] [id number] [address] [place] [id number] Dec, Diabetes E11.9 ; Hypoxia R09 .02 and Back pain M54.9 [facility] [address] [id number] [address] [place] [id number] Dec, [facility] [address] [id number] [address] [place] [id number] Nov, [facility] [address] [id number] [address] [place] [id number] Oct, Anxiety F41.9 [facility] [address] [id number] [address] [place] [id number] Oct, Back pain M54.9 [facility] [address] [id number] [address] [place] [id number] September, Back pain M54.9 [facility] [address] [id number] [address] [place] [id number] September, Diabetes E11.9 [facility] [address] [id number] [address] [place] [id number] September, [facility] [address] [facility] [id number] [address] [place] [id number] September, Diabetes E11.9 ; Insulin sarai g-term use Z79.4 and Back pain M54.9 [facility] [address] [id number] [address] [place] [id number] Aug, Back pain M54.9 [facility] [address] [id number] [address] [place] [id number] Aug, Back pain M54.9 ; Anxiety F4 1.9 and Arthropathy, unspecified M12.9 [facility] [address] [id number] [address] [place] [id number] Jul, Back pain M54.9 [facility] [address] [id number] [address] [place] [id number] Jul, Anxiety F41.9 [facility] [address] [id number] [address] [place] [id number] Jul, Back pain M54.9 [facility] [address] [facility] [id number] [address] [place] [id number] Jul, [facility] [address] [facility] [id number] [address] [place] [id number] Jul, [facility] [address] [facility] [id number] [address] [place] [id number] May, Back pain M54.9 ; Diabetes E 11.9 ; Insulin long-term use Z79.4 ; COPD (chronic obstructive pulmonary disease) J44.9 and Hypertension I10 [facility] [address] [id number] [address] [place] [id number] May, Chronic pain G89.29 [facility] [address] [facility] [id number] [address] [place] [id number] Apr, [facility] [id number] [place] [id number] Apr, [facility] [address] [id number] [address] [place] [id number] Mar, [facility] [address] [id number] [address] [place] [id number] Mar, Encounter for immunization Z 23 and Diabetes E11.9 [facility] [address] [facility] [id number] [address] [place] [phone] Feb, [facility] [address] [id number] [address] [place] [phone] Feb, [facility] [address] [facility] [id number] [address] [place] [id number] Jan, [facility] [address] [id number] [address] [place] [id number] Jan, [facility] [address] [facility] [id number] [address] [place] [id number] Dec, [facility] [address] [id number] [address] [place] [id number] Dec, [facility] [address] [id number] [address] [place] [id number] Dec, Unspecified arthropathy, sit e unspecified 716.90 and Diabetes mellitus type 2, uncontrolled 250.02 [facility] [address] [id number] [address] [place] [address], [place] [address] Dec, [facility] [address] [id number] [address] [place] [id number] Nov, [facility] [address] [id number] [address] [place] [address], [place] [address] Oct, [facility] [address] [id number] [address] [place] [id number] September, [facility] [address] [id number] [address] [place] [address], [place] [address] September, [facility] [address] [id number] [address] [place] [id number] September, [facility] [address] [id number] [address] [place] [id number] September, [facility] [address] [id number] [address] [place] [address], [place] [address] Aug, [facility] [address] [id number] [address] [place] [phone] Aug, [facility] [address] [id number] [address] [place] [id number] Jul, [facility] [address] [id number] [address] [place] [id number] 18 Jul, 2014 [facility] [address] [id number] [address] [place] [id number] 16 Jul, 2014 [facility] [address] [id number] [address] [place] [id number] 16 Jul, 2014 [facility] [address] [id number] [address] [place] [id number] 16 Jul, 2014 [facility] [address] [id number] [address] [place] [id number] 16 Jul, 2014 [facility] [address] [id number] [address] [place] [address], [place] [id number] 16 Jul, 2014 [facility] [address] [id number] [address] [place] [address], [place] [id number] 16 Jul, 2014 [facility] [address] [id number] [address] [place] [address], [place] [id number] 16 Jul, 2014 [facility] [address] [id number] [address] [place] [address], [place] [id number] 13 Jul, 2014 [facility] [address] [id number] [address] [place] [address], [place] [id number] 13 Jul, 2014 [facility] [address] [id number] [address] [place] [address], [place] [id number] 09 Jul, 2014 [facility] [address] [id number] [address] [place] [address], [place] [id number] 09 Jul, 2014 [facility] [address] [id number] [address] [place] [address], [place] [id number] 17 Jul, 2014 [facility] [address] [id number] [address] [place] [address], [place] [id number] 17 Jul, 2014 [facility] [address] [id number] [address] [place] [address], [place] [id number] 16 Jul, 2014 [facility] [address] [id number] [address] [place] [address], [place] [id number] 16 Jul, 2014 [facility] [address] [id number] [address] [place] [id number] 16 Jul, 2014 [facility] [address] [id number] [address] [place] [address], [place] [id number] 16 Jul, 2014 [facility] [address] [id number] [address] [place] [address], [place] [id number] 16 Jul, 2014 [facility] [address] [id number] [address] [place] [id number] 16 Jul, 2014 [facility] [address] [id number] [address] [place] [id number] Jul, 2014 [facility] [address] [id number] [address] [place] [address], [place] [address] Jul, 2014 [facility] [address] [id number] [address] [place] [address], [place] [address] Jul, 2014 [facility] [address] [id number] [address] [place] [address], [place] [address] Jul, 2014 [facility] [address] [id number] [address] [place] [address], [place] [address] Jul, 2014 [facility] [address] [id number] [address] [place] [address], [place] [address] Jul, 2014 [facility] [address] [id number] [address] [place] [address], [place] [address] Jul, [facility] [address] [id number] [address] [place] [address], [place] [address] Jul, [facility] [address] [id number] [address] [place] [address], [place] [id number] May, [facility] [address] [id number] [address] [place] [address], [place] [address] May, [facility] [address] [id number] [address] [place] [address], [place] [address] May, [facility] [address] [id number] [address] [place] [address], [place] [id number] May, [facility] [address] [id number] [address] [place] [address], [place] [id number] May, [facility] [address] [id number] [address] [place] [address], [place] [address] May, [facility] [address] [id number] [address] [place] [address], [place] [address] May, [facility] [address] [id number] [address] [place] [address], [place] [address] May, [facility] [address] [id number] [address] [place] [address], [place] [id number] May, [facility] [address] [id number] [address] [place] [address], [place] [id number] May, [facility] [address] [id number] [address] [place] [address], [place] [address] Apr, [facility] [address] [id number] [address] [place] [address], [place] [address] Apr, [facility] [address] [id number] [address] [place] [address], [place] [address] Apr, [facility] [address] [id number] [address] [place] [address], [place] [id number] Apr, [facility] [address] [id number] [address] [place] [address], [place] [id number] Apr, [facility] [address] [id number] [address] [place] [address], [place] [id number] Apr, [facility] [address] [id number] [address] [place] [address], [place] [address] Mar, [facility] [address] [id number] [address] [place] [address], [place] [id number] Mar, [facility] [address] [id number] [address] [place] [address], [place] [address] Mar, [facility] [address] [id number] [address] [place] [address], [place] [id number] Mar, [facility] [address] [id number] [address] [place] [address], [place] [id number] Mar, [facility] [address] [id number] [address] [place] [address], [place] [id number] Mar, [facility] [address] [id number] [address] [place] [address], [place] [address] Mar, [facility] [address] [id number] [address] [place] [id number] Mar, [facility] [address] [id number] [address] [place] [address], [place] [id number] Mar, [facility] [address] [id number] [address] [place] [id number] Mar, [facility] [address] [id number] [address] [place] [address], [place] [id number] Mar, [facility] [address] [id number] [address] [place] [id number] Feb, [facility] [address] [id number] [address] [place] [address], [place] [address] Feb, [facility] [address] [id number] [address] [place] [address], [place] [id number] Feb, [facility] [address] [id number] [address] [place] [id number] Feb, [facility] [address] [id number] [address] [place] [address], [place] [id number] Feb, [facility] [address] [id number] [address] [place] [address], [place] [id number] Feb, [facility] [address] [id number] [address] [place] [address], [place] [address] Feb, [facility] [address] [id number] [address] [place] [id number] Feb, [facility] [address] [id number] [address] [place] [id number] Feb, [facility] [address] [id number] [address] [place] [address], [place] [id number] Feb, [facility] [address] [id number] [address] [place] [address], [place] [address] Jan, [facility] [address] [id number] [address] [place] [address], [place] [address] Jan, [facility] [address] [id number] [facility] [address] 16 Jan, 2013 [facility] [address] [id number] [address] [place] [address], [place] [id number] 16 Jan, 2014 [facility] [address] [id number] [address] [place] [address], [place] [id number] 12 Jan, 2014 [facility] [address] [id number] [address] [place] [address], [place] [address] Jan, 2013 [facility] [address] [id number] [address] [place] [address], [place] [id number] Jan, [facility] [address] [id number] [address] [place] [address], [place] [address] Dec, [facility] [address] [id number] [address] [place] [address], [place] [id number] Dec, [facility] [address] [id number] [address] [place] [address], [place] [address] Dec, [facility] [address] [id number] [address] [place] [address], [place] [id number] Dec, [facility] [address] [id number] [address] [place] [address], [place] [address] Dec, [facility] [address] [id number] [address] [place] [address], [place] [id number] Dec, [facility] [address] [id number] [address] [place] [address], [place] [id number] Dec, [facility] [address] [id number] [address] [place] [address], [place] [address] Dec, [facility] [address] [id number] [address] [place] [address], [place] [id number] Oct, [facility] [address] [id number] [address] [place] [address], [place] [address] Oct, [facility] [address] [id number] [address] [place] [address], [place] [id number] September, [facility] [address] [id number] [address] [place] [address], [place] [address] September, [facility] [address] [id number] [address] [place] [address], [place] [address] September, [facility] [address] [id number] [address] [place] [address], [place] [address] September, [facility] [address] [id number] [address] [place] [address], [place] [address] September, [facility] [address] [id number] [address] [place] [address], [place] [address] September, [facility] [address] [id number] [address] [place] [address], [place] [id number] September, [facility] [address] [id number] [address] [place] [address], [place] [address] Aug, [facility] [address] [id number] [address] [place] [address], [place] [address] Aug, [facility] [address] [id number] [address] [place] [address], [place] [address] Jul, [facility] [address] [id number] [address] [place] [address], [place] [id number] 24 Jul, 2013 [facility] [address] [id number] [address] [place] [address], [place] [address] Jul, [facility] [address] [id number] [address] [place] [address], [place] [address] Jul, [facility] [address] [id number] [address] [place] [address], [place] [id number] Jul, [facility] [address] [id number] [address] [place] [address], [place] [id number] Jul, [facility] [address] [id number] [address] [place] [address], [place] [id number] Jul, [facility] [address] [id number] [address] [place] [address], [place] [id number] 03 Jul, 2013 [facility] [address] [id number] [address] [place] [address], [place] [address] May, [facility] [address] [id number] [address] [place] [address], [place] [id number] 15 May, 2013 [facility] [address] [id number] [address] [place] [address], [place] [address] May, [facility] [address] [id number] [address] [place] [address], [place] [id number] 14 May, 2013 [facility] [address] [id number] [address] [place] [address], [place] [address] Apr, [facility] [address] [id number] [address] [place] [address], [place] [id number] Mar, [facility] [address] [id number] [address] [place] [address], [place] [id number] Mar, [facility] [address] [id number] [address] [place] [address], [place] [address] Mar, [facility] [address] [id number] [address] [place] [address], [place] [id number] Mar, [facility] [address] [id number] [address] [place] [address], [place] [id number] 18 Mar, 2013 [facility] [address] [id number] [address] [place] [address], [place] [id number] Mar, [facility] [address] [id number] [address] [place] [address], [place] [id number] 18 Mar, 2013 [facility] [address] [id number] [address] [place] [address], [place] [address] Mar, [facility] [address] [id number] [address] [place] [address], [place] [id number] Mar, [facility] [address] [id number] [address] [place] [address], [place] [address] Mar, [facility] [address] [id number] [address] [place] [address], [place] [id number] Mar, [facility] [address] [id number] [address] [place] [address], [place] [id number] Mar, [facility] [address] [id number] [address] [place] [address], [place] [id number] Feb, [facility] [address] [id number] [address] [place] [address], [place] [id number] Feb, [facility] [address] [id number] [address] [place] [address], [place] [id number] Feb, [facility] [address] [id number] [address] [place] [address], [place] [id number] Feb, [facility] [address] [id number] [address] [place] [address], [place] [id number] Feb, [facility] [address] [id number] [address] [place] [address], [place] [id number] Jan, [facility] [address] [id number] [address] [place] [address], [place] [id number] Dec, [facility] [address] [id number] [address] [place] [address], [place] [id number] Dec, [facility] [address] [id number] [address] [place] [address], [place] [id number] Dec, [facility] [address] [id number] [address] [place] [address], [place] [id number] Nov, [facility] [address] [id number] [address] [place] [address], [place] [id number] Nov, [facility] [address] [id number] [address] [place] [address], [place] [id number] Nov, [facility] [address] [id number] [address] [place] [address], [place] [id number] Oct, [facility] [address] [id number] [address] [place] [address], [place] [id number] Oct, [facility] [address] [id number] [address] [place] [address], [place] [id number] Oct, [facility] [address] [id number] [address] [place] [address], [place] [id number] September, [facility] [address] [id number] [address] [place] [address], [place] [id number] September, [facility] [address] [id number] [address] [place] [address], [place] [id number] September, [facility] [address] [id number] [address] [place] [address], [place] [id number] September, [facility] [address] [id number] [address] [place] [address], [place] [id number] September, [facility] [address] [id number] [address] [place] [address], [place] [id number] Aug, [facility] [address] [id number] [address] [place] [address], [place] [id number] Aug, [facility] [address] [id number] [address] [place] [address], [place] [id number] Aug, [facility] [address] [id number] [address] [place] [address], [place] [id number] Jul, [facility] [address] [id number] [address] [place] [address], [place] [id number] Jul, [facility] [address] [id number] [address] [place] [address], [place] [id number] Jul, [facility] [address] [id number] [address] [place] [address], [place] [id number] Jul, [facility] [address] [id number] [address] [place] [address], [place] [id number] Jul, [facility] [address] [id number] [address] [place] [address], [place] [id number] Jul, [facility] [address] [id number] [address] [place] [address], [place] [id number] Jul, [facility] [address] [id number] [address] [place] [address], [place] [id number] May, [facility] [address] [id number] [address] [place] [address], [place] [id number] May, [facility] [address] [id number] [address] [place] [address], [place] [id number] May, [facility] [address] [id number] [address] [place] [address], [place] [id number] Apr, [facility] [address] [id number] [address] [place] [address], [place] [id number] Apr, [facility] [address] [id number] [address] [place] [address], [place] [id number] Apr, [facility] [address] [id number] [address] [place] [address], [place] [id number] Apr, [facility] [address] [id number] [address] [place] [address], [place] [id number] Apr, [facility] [address] [id number] [address] [place] [address], [place] [id number] Mar, [facility] [address] [id number] [address] [place] [address], [place] [id number] 29 Mar, 2012 [facility] [address] [id number] [address] [place] [address], [place] [id number] Mar, [facility] [address] [id number] [address] [place] [address], [place] [id number] Mar, [facility] [address] [id number] [address] [place] [address], [place] [id number] Feb, [facility] [address] [id number] [address] [place] [address], [place] [id number] Feb, [facility] [address] [id number] [address] [place] [address], [place] [id number] Feb, [facility] [address] [id number] [address] [place] [address], [place] [id number] Feb, [facility] [address] [id number] [address] [place] [address], [place] [id number] Feb, [facility] [address] [id number] [address] [place] [address], [place] [id number] Jan, [facility] [address] [id number] [address] [place] [address], [place] [id number] Dec, [facility] [address] [id number] [address] [place] [address], [place] [id number] Dec, [facility] [address] [id number] [address] [place] [address], [place] [id number] Dec, [facility] [address] [id number] [address] [place] [address], [place] [id number] Nov, [facility] [address] [id number] [address] [place] [address], [place] [id number] Nov, [facility] [address] [id number] [address] [place] [address], [place] [id number] Nov, [facility] [address] [id number] [address] [place] [address], [place] [id number] Oct, [facility] [address] [id number] [address] [place] [address], [place] [id number] Oct, [facility] [address] [id number] [address] [place] [address], [place] [id number] Oct, [facility] [address] [id number] [address] [place] [address], [place] [id number] Oct, [facility] [address] [id number] [address] [place] [address], [place] [id number] September, [facility] [address] [id number] [address] [place] [address], [place] [id number] September, [facility] [address] [id number] [address] [place] [address], [place] [id number] Aug, [facility] [address] [id number] [address] [place] [address], [place] [id number] Aug, [facility] [address] [id number] [address] [place] [address], [place] [id number] Aug, [facility] [address] [id number] [address] [place] [address], [place] [id number] Aug, [facility] [address] [id number] [address] [place] [address], [place] [id number] Aug, [facility] [address] [id number] [address] [place] [address], [place] [id number] Aug, [facility] [address] [id number] [address] [place] [address], [place] [id number] Aug, [facility] [address] [id number] [address] [place] [address], [place] [id number] Jul, [facility] [address] [id number] [address] [place] [address], [place] [id number] Jul, [facility] [address] [id number] [address] [place] [address], [place] [id number] Jul, [facility] [address] [id number] [address] [place] [address], [place] [id number] May, [facility] [address] [id number] [address] [place] [address], [place] [id number] May, [facility] [address] [id number] [address] [place] [address], [place] [id number] May, [facility] [address] [id number] [address] [place] [address], [place] [id number] Apr, [facility] [address] [id number] [address] [place] [address], [place] [id number] Apr, [facility] [address] [id number] [address] [place] [address], [place] [id number] Mar, [facility] [address] [id number] [address] [place] [id number] Mar, [facility] [address] [id number] [address] [place] [id number] Mar, [facility] [address] [id number] [address] [place] [id number] Mar, [facility] [address] [id number] [address] [place] [id number] Mar, [facility] [address] [id number] [address] [place] [id number] Mar, [facility] [address] [id number] [address] [place] [id number] Feb, [facility] [address] [id number] [address] [place] [id number] Feb, [facility] [address] [id number] [address] [place] [id number] Feb, IMMUNIZATIONS No Known Immunizations SOCIAL HISTORY [...] foot infections x 3 2015 Hospitalization History [facility] - right big t oe removed 2018
--- OUTSIDE RECORDS SUMMARY | 2020-01-03 07:34 | XMS REPORT ---
Author Author Tra SILVERIO Organization [facility] Address [address] [place] [address] Care Team Providers Care Experience Designer Name Role Phone FERNY SILVERIO Unavailable PROBLEMS Type Condition ICD9-CM Code CDB43-WU Code Onset Dates Condition S tatus SNOMED Code Problem Hypertension I10 Active 7159261 3 Problem Hypoxia R09.02 Active 418618437 Problem COPD (chronic obstructive pulmonary disease) J44.9 Active 24544504 Problem Lumbar radiculopathy, chronic M54.16 Active 359198832 Problem penitentiary current use of insulin Z79.4 Active 780747060 Problem Recurrent major depressive disorder, in full remission F33.42 Active 028689357 Problem Hyperlipidemia, unspecified E78.5 Ac tive 56037999 Problem PAD (peripheral artery disease) I73.9 Active 554839660 Problem Type 2 diabetes mellitus with other specified complication E11.69 Active 903930939787 Problem Anxiety F41.9 Active 22605402 Problem Type 2 diabetes mellitus wit h diabetic peripheral angiopathy without gangrene E11.51 Active 607916667 Problem ED (erectile dysfunction) of organic origin N52.9 Active 985684252 Problem Arthritis M19.90 Active 7332428 Problem Morbid (severe) obesity due to excess calories E66 .01 Active 578103743 ALLERGIES No Information ENCOUNTERS Encounter Location Date Diagnosis [facility] [address] [facility] [id number] [address] [place] [phone] Aug, Lumbar radiculopathy, chroni c M54.16 ; Anxiety F41.9 ; Type 2 diabetes mellitus with other specified complication E11.69 and Hypertension I10 [facility] [address] [facility] [id number] [address] [place] [id number] Jul, [facility] [address] [facility] [id number] [address] [place] [id number] Jul, Lumbar radiculopathy, chroni c M54.16 ; Back pain M54.9 and Anxiety F41.9 [facility] [address] [id number] [address] [place] [id number] 23 Jul, 2019 [facility] [address] [id number] [address] [place] [id number] 13 Jul, 2019 Anxiety F41.9 [facility] [address] [id number] [address] [place] [id number] 12 Jul, 2019 Anxiety F41.9 [facility] [address] [id number] [address] [place] [id number] 02 Jul, 2019 Back pain M54.9 [place] [address] [id number] [address] [place] [id number] 02 Jul, 2019 Back pain M54.9 [place] [address] [id number] [address] [place] [id number] 28 Jul, 2019 Lumbar radiculopathy, chroni c M54.16 [facility] [address] [id number] [address] [place] [id number] 28 Jul, 2019 Back pain M54.9 [place] [address] [id number] [address] [place] [id number] 07 Jul, 2019 Encounter for Medicare annua [...] diabetes mellitus with other specified complication E11.69 [facility] [address] [id number] [address] [place] [id number] 03 Jul, 2019 Back pain M54.9 [facility] [address] [id number] [address] [place] [id number] Jul, Anxiety F41.9 [facility] [address] [id number] [address] [place] [id number] May, [facility] [address] [id number] [address] [place] [id number] May, Lumbar radiculopathy, chroni c M54.16 [facility] [address] [id number] [address] [place] [id number] May, Back pain M54.9 [facility] [address] [id number] [address] [place] [id number] May, [facility] [address] [id number] [address] [place] [id number] May, Back pain M54.9 and Anxiety F41.9 [facility] [address] [facility] [id number] [address] [place] [phone] May, [facility] [address] [id number] [address] [place] [id number] May, Type 2 diabetes mellitus wit h diabetic peripheral angiopathy without gangrene E11.51 ; Arthritis M19.90 ; ED (erectile dysfunction) of organic origin N52.9 ; Morbid (severe) obesity due to excess calories E66.01 and Lumbar radiculopathy, chronic M54.16 [facility] [address] [facility] [id number] [address] [place] [id number] May, Diabetes E11.9 [facility] [address] [id number] [address] [place] [id number] Apr, [facility] [address] [facility] [id number] [address] [place] [id number] Apr, Back pain M54.9 [facility] [address] [id number] [address] [place] [id number] Apr, [facility] [address] [facility] [id number] [address] [place] [id number] Apr, Anxiety F41.9 [facility] [address] [id number] [address] [place] [id number] Apr, Back pain M54.9 and Lumbar r adiculopathy, chronic M54.16 [facility] [address] [id number] [address] [place] [id number] Apr, Back pain M54.9 ; Anxiety F4 1.9 and Lumbar radiculopathy, chronic M54.16 [facility] [address] [id number] [address] [place] [id number] Mar, [facility] [address] [id number] [address] [place] [phone] Mar, [facility] [address] [id number] [address] [place] [phone] Mar, Back pain M54.9 [facility] [address] [id number] [address] [place] [phone] Mar, [facility] [address] [id number] [address] [place] [address] Feb, Type 2 diabetes mellitus wit h diabetic peripheral angiopathy without gangrene E11.51 ; Lumbar radiculopathy, chronic M54.16 ; ED (erectile dysfunction) of organic origin N52.9 ; Encounter for immunization Z23 ; COPD (chronic obstructive pulmonary disease) J44.9 and Anxiety F41.9 [facility] [address] [id number] [address] [place] [id number] Feb, Back pain M54.9 [facility] [address] [id number] [address] [place] [phone] Feb, [facility] [address] [id number] [address] [place] [phone] Feb, [facility] [address] [id number] [address] [place] [phone] Feb, [facility] [address] [id number] [address] [place] [id number] Feb, Back pain M54.9 [facility] [address] [id number] [address] [place] [phone] Feb, [facility] [address] [id number] [address] [place] [id number] Jan, Anxiety F41.9 [facility] [address] [id number] [address] [place] [phone] Jan, Anxiety F41.9 [facility] [address] [id number] [address] [place] [phone] Jan, [facility] [address] [id number] [address] [place] [phone] Jan, [facility] [address] [id number] [address] [place] [id number] Jan, Back pain M54.9 [facility] [address] [id number] [address] [place] [phone] Jan, [facility] [address] [id number] [address] [place] [id number] Dec, Acute non-recurrent frontal sinusitis J01.10 [facility] [address] [id number] [address] [place] [id number] Dec, Acute non-recurrent frontal sinusitis J01.10 [facility] [address] [id number] [address] [place] [id number] Dec, Type 2 diabetes mellitus wit h diabetic peripheral angiopathy without gangrene E11.51 ; Lumbar radiculopathy, chronic M54.16 ; Recurrent major depressive disorder, in full remission F33.42 and Anxiety F41.9 [facility] [address] [id number] [address] [place] [id number] Dec, [facility] [address] [id number] [address] [place] [phone] Nov, Anxiety F41.9 [facility] [address] [id number] [address] [place] [id number] Nov, [facility] [address] [id number] [address] [place] [id number] Nov, Back pain M54.9 [facility] [address] [id number] [address] [place] [address], [place] [address] Nov, [facility] [address] [id number] [address] [place] [id number] Nov, Back pain M54.9 [facility] [address] [id number] [address] [place] [address], [place] [address] Nov, Anxiety F41.9 [facility] [address] [id number] [address] [place] [id number] Nov, [facility] [address] [id number] [address] [place] [id number] Oct, Back pain M54.9 [facility] [address] [id number] [address] [place] [phone] Oct, [facility] [address] [id number] [address] [place] [id number] Oct, [facility] [address] [id number] [address] [place] [id number] Oct, [facility] [address] [id number] [address] [place] [phone] September, Back pain M54.9 [facility] [address] [id number] [address] [place] [id number] September, [facility] [address] [id number] [address] [place] [id number] September, [facility] [address] [id number] [address] [place] [id number] September, [facility] [address] [id number] [address] [place] [phone] Aug, Back pain M54.9 [facility] [address] [id number] [address] [place] [address] Aug, Anxiety F41.9 [facility] [address] [id number] [address] [place] [address] Aug, [facility] [address] [id number] [address] [place] [address] Aug, Pressure ulcer of other site , stage 3 L89.893 and COPD (chronic obstructive pulmonary disease) J44.9 [facility] [address] [id number] [address] [place] [address] Aug, History of smoking Z87.891 [facility] [address] [id number] [address] [place] [id number] Jul, Type 2 diabetes mellitus wit h diabetic peripheral angiopathy without gangrene E11.51 [facility] [address] [id number] [address] [place] [id number] Jul, Back pain M54.9 [facility] [address] [id number] [address] [place] [id number] Jul, Anxiety F41.9 [facility] [address] [id number] [address] [place] [id number] Jul, [facility] [address] [id number] [address] [place] [id number] Jul, Back pain M54.9 [facility] [address] [id number] [address] [place] [id number] Jul, Back pain M54.9 [facility] [address] [facility] [id number] [address] [place] [id number] Jul, Lumbar radiculopathy, chroni c M54.16 ; Hypertension I10 and Type 2 diabetes mellitus with diabetic peripheral angiopathy without gangrene E11.51 [facility] [address] [id number] [address] [place] [id number] Jul, Back pain M54.9 [facility] [address] [id number] [address] [place] [id number] Jul, Back pain M54.9 and Anxiety F41.9 [facility] [address] [id number] [address] [place] [id number] Jul, [facility] [address] [id number] [address] [place] [id number] May, Back pain M54.9 and Anxiety F41.9 [facility] [address] [id number] [address] [place] [phone] May, [facility] [address] [facility] [id number] [address] [place] [id number] Apr, Radiculopathy of lumbar rhiannon on M54.16 ; Back pain M54.9 and Anxiety F41.9 [facility] [address] [id number] [address] [place] [address] Apr, Diabetes E11.9 ; Muscle spas m M62.838 and Lumbar radiculopathy, chronic M54.16 [facility] [address] [id number] [address] [place] [id number] Apr, [facility] [address] [id number] [address] [place] [id number] Apr, [facility] [address] [id number] [address] [place] [id number] Mar, Back pain M54.9 and Anxiety F41.9 [facility] [address] [id number] [address] [place] [id number] Mar, [facility] [address] [facility] [id number] [address] [place] [id number] Mar, [facility] [address] [facility] [id number] [address] [place] [phone] Mar, [facility] [address] [id number] [address] [place] [id number] Mar, Encounter for immunization Z 23 [facility] [address] [id number] [address] [place] [id number] 31 Feb, 2018 Back pain M54.9 and Anxiety F41.9 [facility] [address] [id number] [address] [place] [id number] 04 Feb, 2018 Back pain M54.9 and Anxiety F41.9 [facility] [address] [id number] [address] [place] [id number] Jan, Back pain M54.9 and Anxiety F41.9 [place] [address] [id number] [address] [place] [id number] Jan, [place] [address] [id number] [address] [place] [id number] Dec, [place] [address] [id number] [address] [place] [id number] Dec, Back pain M54.9 and Anxiety F41.9 [place] [address] [id number] [address] [place] [address] Dec, Diabetes E11.9 ; Type 2 diab etes mellitus with diabetic peripheral angiopathy without gangrene E11.51 ; Lumbar radiculopathy, chronic M54.16 ; COPD (chronic obstructive pulmonary disease) J44.9 and Anxiety F41.9 [place] [address] [id number] [address] [place] [address] Dec, Back pain M54.9 and Anxiety F41.9 [facility] [address] [id number] [address] [place] [id number] Nov, Back pain M54.9 and Anxiety F41.9 [facility] [address] [id number] [address] [place] [phone] Oct, [facility] [address] [id number] [address] [place] [id number] Oct, Back pain M54.9 and Anxiety F41.9 [facility] [address] [id number] [address] [place] [id number] September, Anxiety F41.9 and Back pain M54.9 [facility] [address] [id number] [address] [place] [id number] September, Diabetes E11.9 ; Hypertensio n I10 ; COPD (chronic obstructive pulmonary disease) J44.9 and Lumbar radiculopathy, chronic M54.16 [place] [address] [id number] [address] [place] [address] September, Anxiety F41.9 [place] [address] [id number] [address] [place] [address] Aug, [place] [address] [facility] [id number] [address] [place] [phone] Aug, [place] [address] [id number] [address] [place] [phone] Aug, Anxiety F41.9 and Back pain M54.9 [place] [address] 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 [id number] [address] [place] [id number] Jul, Back pain M54.9 [place] [address] [facility] [id number] [address] [place] [id number] Jul, [place] [address] [id number] [address] [place] [id number] Jul, Anxiety F41.9 and Back pain M54.9 [facility] [address] [id number] [address] [place] [id number] Jul, Diabetes E11.9 [facility] [address] [id number] [address] [place] [id number] May, [facility] [address] [id number] [address] [place] [id number] May, Diabetes E11.9 ; Anxiety F41 .9 ; Back pain M54.9 and COPD (chronic obstructive pulmonary disease) J44.9 [facility] [address] [id number] [address] [place] [phone] May, Back pain M54.9 [facility] [address] [id number] [address] [place] [id number] May, [facility] [address] [id number] [address] [place] [address] Apr, Back pain M54.9 [facility] [address] [id number] [address] [place] [address] Mar, Back pain M54.9 [facility] [address] [facility] [id number] [address] [place] [id number] Mar, [facility] [address] [facility] [id number] [address] [place] [id number] 16 Mar, 2017 [facility] [address] [id number] [address] [place] [id number] 14 Mar, 2017 Radiculopathy of lumbar rhiannon on M54.16 [facility] [address] [id number] [address] [place] [id number] 13 Mar, 2017 [facility] [address] [facility] [id number] [address] [place] [id number] 07 Mar, 2017 Encounter for immunization Z 23 and Lumbar radiculopathy, chronic M54.16 [facility] [address] [id number] [address] [place] [phone] Mar, Back pain M54.9 and Anxiety F41.9 [facility] [address] [id number] [address] [place] [id number] 10 Feb, 2017 Acute bilateral low back boy n with left-sided sciatica M54.42 and Acute bilateral low back pain with right-sided sciatica M54.41 [facility] [address] [id number] [address] [place] [id number] Feb, [facility] [address] [id number] [address] [place] [id number] Feb, Back pain M54.9 [facility] [address] [id number] [address] [place] [id number] 05 Jan, 2017 Back pain M54.9 and Anxiety F41.9 [facility] [address] [id number] [address] [place] [id number] 05 Jan, 2017 Diabetes E11.9 [facility] [address] [id number] [address] [place] [id number] 14 Dec, 2016 Diabetes E11.9 ; Back pain M 54.9 ; Anxiety F41.9 and Insulin long- term use Z79.4 [facility] [address] [id number] [address] [place] [id number] Dec, Anxiety F41.9 [facility] [address] [id number] [address] [place] [id number] Dec, Back pain M54.9 [facility] [address] [id number] [address] [place] [id number] Nov, Back pain M54.9 [facility] [address] [id number] [address] [place] [id number] Oct, Back pain M54.9 and Anxiety F41.9 [facility] [address] [id number] [address] [place] [id number] September, Back pain M54.9 [facility] [address] [id number] [address] [place] [id number] September, Back pain M54.9 and Anxiety F41.9 [facility] [address] [id number] [address] [place] [id number] Aug, Diabetes E11.9 ; Anxiety F41 .9 ; Back pain M54.9 and PAD (peripheral artery disease) I73.9 [facility] [address] [id number] [address] [place] [phone] Aug, Anxiety F41.9 [facility] [address] [id number] [address] [place] [id number] Aug, Back pain M54.9 [facility] [address] [id number] [address] [place] [id number] Jul, Back pain M54.9 [facility] [address] [id number] [address] [place] [phone] Jul, Back pain M54.9 [facility] [address] [id number] [address] [place] [id number] 23 Jul, 2016 Back pain M54.9 [facility] [address] [id number] [address] [place] [id number] 16 Jul, 2016 Dorsalgia M54.9 [facility] [address] [id number] [address] [place] [id number] 14 Jul, 2016 [facility] [address] [id number] [address] [place] [phone] May, Back pain M54.9 [facility] [address] [facility] [id number] [address] [place] [id number] 06 May, 2016 Diabetes E11.9 ; Anxiety F41 .9 ; Port catheter in place Z95.828 ; Encounter for immunization Z23 and Insulin long-term use Z79.4 [facility] [address] [id number] [address] [place] [id number] Apr, Back pain M54.9 [facility] [address] [id number] [address] [place] [id number] Apr, Back pain M54.9 [facility] [address] [id number] [address] [place] [id number] Apr, [facility] [address] [id number] [address] [place] [id number] Apr, Back pain M54.9 [facility] [address] [id number] [address] [place] [id number] Mar, COPD (chronic obstructive pu lmonary disease) J44.9 [facility] [address] [id number] [address] [place] [id number] Feb, [facility] [address] [id number] [address] [place] [id number] Jan, [facility] [address] [id number] [address] [place] [phone] Jan, [facility] [address] [id number] [address] [place] [id number] Jan, [facility] [address] [id number] [address] [place] [id number] Jan, [facility] [address] [id number] [address] [place] [id number] Dec, Diabetes E11.9 ; Hypoxia R09 .02 and Back pain M54.9 [facility] [address] [id number] [address] [place] [id number] Dec, [facility] [address] [id number] [address] [place] [id number] Nov, [facility] [address] [id number] [address] [place] [address] Oct, Anxiety F41.9 [facility] [address] [id number] [address] [place] [id number] Oct, Back pain M54.9 [facility] [address] [facility] [id number] [address] [place] [address] September, Back pain M54.9 [facility] [address] [facility] [id number] [address] [place] [address] September, Diabetes E11.9 [facility] [address] [id number] [address] [place] [address] September, [facility] [address] [facility] [id number] [address] [place] [address] September, Diabetes E11.9 ; Insulin sarai g-term use Z79.4 and Back pain M54.9 [facility] [address] [facility] [id number] [address] [place] [address] Aug, Back pain M54.9 [facility] [address] [facility] [id number] [address] [place] [phone] Aug, Back pain M54.9 ; Anxiety F4 1.9 and Arthropathy, unspecified M12.9 [facility] [address] [facility] [id number] [address] [place] [address] Jul, Back pain M54.9 [facility] [address] [facility] [id number] [address] [place] [address] Jul, Anxiety F41.9 [facility] [address] [facility] [id number] [address] [place] [id number] Jul, Back pain M54.9 [facility] [address] [id number] [address] [place] [address] Jul, [facility] [address] [facility] [id number] [address] [place] [phone] Jul, [facility] [address] [facility] [id number] [address] [place] [address] May, Back pain M54.9 ; Diabetes E 11.9 ; Insulin long-term use Z79.4 ; COPD (chronic obstructive pulmonary disease) J44.9 and Hypertension I10 [facility] [address] [facility] [id number] [address] [place] [address] May, Chronic pain G89.29 [facility] [address] [id number] [address] [place] [id number] Apr, [facility] [address] [facility] [id number] [address] [place] [phone] Apr, [facility] [address] [facility] [id number] [address] [place] [address] Mar, [facility] [id number] [place] [phone] Mar, Encounter for immunization Z 23 and Diabetes E11.9 [facility] [address] [id number] [address] [place] [phone] Feb, [facility] [address] [facility] [id number] [address] [place] [id number] Feb, [facility] [address] [id number] [address] [place] [phone] Jan, [facility] [address] [id number] [address] [place] [phone] Jan, [facility] [address] [id number] [address] [place] [phone] Dec, [facility] [address] [facility] [id number] [address] [place] [id number] Dec, [facility] [address] [id number] [address] [place] [address] Dec, Unspecified arthropathy, sit e unspecified 716.90 and Diabetes mellitus type 2, uncontrolled 250.02 [facility] [address] [id number] [address] [place] [address] Dec, [facility] [address] [id number] [address] [place] [address], [place] [address] 06 Nov, 2014 [facility] [address] [id number] [address] [place] [address], [place] [address] Oct, [facility] [address] [id number] [address] [place] [address], [place] [address] September, [facility] [address] [id number] [address] [place] [address], [place] [address] September, [facility] [address] [id number] [address] [place] [address], [place] [address] September, [facility] [address] [id number] [address] [place] [address], [place] [address] September, [facility] [address] [id number] [address] [place] [address], [place] [address] Aug, [facility] [address] [id number] [address] [place] [address], [place] [address] Aug, [facility] [address] [id number] [address] [place] [address], [place] [address] 18 Jul, 2014 [facility] [address] [id number] [address] [place] [address], [place] [address] 18 Jul, 2014 [facility] [address] [id number] [address] [place] [address], [place] [address] 16 Jul, 2014 [facility] [address] [id number] [address] [place] [address], [place] [address] 16 Jul, 2014 [facility] [address] [id number] [address] [place] [address], [place] [address] 16 Jul, 2014 [facility] [address] [id number] [address] [place] [address], [place] [address] 16 Jul, 2014 [facility] [address] [id number] [address] [place] [address], [place] [address] 16 Jul, 2014 [facility] [address] [id number] [address] [place] [address], [place] [address] 16 Jul, 2014 [facility] [address] [id number] [address] [place] [address], [place] [address] 16 Jul, 2014 [facility] [address] [id number] [address] [place] [address], [place] [address] Jul, 2014 [facility] [address] [id number] [address] [place] [address], [place] [address] 13 Jul, 2014 [facility] [address] [id number] [address] [place] [address], [place] [address] 09 Jul, 2014 [facility] [address] [id number] [address] [place] [address], [place] [address] 09 Jul, 2014 [facility] [address] [id number] [address] [place] [address], [place] [address] 17 Jul, 2014 [facility] [address] [id number] [address] [place] [address], [place] [address] 17 Jul, 2014 [facility] [address] [id number] [address] [place] [address], [place] [address] 16 Jul, 2014 [facility] [address] [id number] [address] [place] [address], [place] [address] 16 Jul, 2014 [facility] [address] [id number] [address] [place] [address], [place] [address] 16 Jul, 2014 [facility] [address] [id number] [address] [place] [address], [place] [address] 16 Jul, 2014 [facility] [address] [id number] [address] [place] [address], [place] [address] 16 Jul, 2014 [facility] [address] [id number] [address] [place] [address], [place] [address] 16 Jul, 2014 [facility] [address] [id number] [address] [place] [address], [place] [address] 16 Jul, 2014 [facility] [address] [id number] [address] [place] [address], [place] [address] 16 Jul, 2014 [facility] [address] [id number] [address] [place] [address], [place] [address] 16 Jul, 2014 [facility] [address] [id number] [address] [place] [address], [place] [address] Jul, [facility] [address] [id number] [address] [place] [address], [place] [address] Jul, 2014 [facility] [address] [id number] [address] [place] [address], [place] [address] Jul, 2014 [facility] [address] [id number] [address] [place] [address], [place] [address] Jul, [facility] [address] [id number] [address] [place] [address], [place] [address] Jul, [facility] [address] [id number] [address] [place] [address], [place] [address] May, [facility] [address] [id number] [address] [place] [address], [place] [address] May, [facility] [address] [id number] [address] [place] [address], [place] [address] May, [facility] [address] [id number] [address] [place] [address], [place] [address] May, [facility] [address] [id number] [address] [place] [address], [place] [address] May, [facility] [address] [id number] [address] [place] [address], [place] [address] May, [facility] [address] [id number] [address] [place] [address], [place] [address] May, [facility] [address] [id number] [address] [place] [address], [place] [address] May, [facility] [address] [id number] [address] [place] [address], [place] [address] May, [facility] [address] [id number] [address] [place] [address], [place] [address] May, [facility] [address] [id number] [address] [place] [address], [place] [address] Apr, [facility] [address] [id number] [address] [place] [address], [place] [address] Apr, [facility] [address] [id number] [address] [place] [address], [place] [address] Apr, [facility] [address] [id number] [address] [place] [address], [place] [address] Apr, [facility] [address] [id number] [address] [place] [address], [place] [address] Apr, [facility] [address] [id number] [address] [place] [address], [place] [address] Apr, [facility] [address] [id number] [address] [place] [address], [place] [address] Mar, [facility] [address] [id number] [address] [place] [address], [place] [address] Mar, [facility] [address] [id number] [address] [place] [address], [place] [address] Mar, [facility] [address] [id number] [address] [place] [address], [place] [address] Mar, [facility] [address] [id number] [address] [place] [address], [place] [address] Mar, [facility] [address] [id number] [address] [place] [address], [place] [address] Mar, [facility] [address] [id number] [address] [place] [address], [place] [address] Mar, [facility] [address] [id number] [address] [place] [address], [place] [address] Mar, [facility] [address] [id number] [address] [place] [address], [place] [address] Mar, [facility] [address] [id number] [address] [place] [address], [place] [address] Mar, [facility] [address] [id number] [address] [place] [address], [place] [address] Mar, [facility] [address] [id number] [address] [place] [address], [place] [address] Feb, [facility] [address] [id number] [address] [place] [address], [place] [address] Feb, [facility] [address] [id number] [address] [place] [address], [place] [address] Feb, [facility] [address] [id number] [address] [place] [address], [place] [address] Feb, [facility] [address] [id number] [address] [place] [address], [place] [address] Feb, [facility] [address] [id number] [address] [place] [address], [place] [address] Feb, [facility] [address] [id number] [address] [place] [address], [place] [address] Feb, [facility] [address] [id number] [address] [place] [address], [place] [address] Feb, [facility] [address] [id number] [address] [place] [address], [place] [address] Feb, [facility] [address] [id number] [address] [place] [address], [place] [address] Feb, [facility] [address] [id number] [address] [place] [address], [place] [address] Jan, [facility] [address] [id number] [address] [place] [address], [place] [address] 22 Jan, 2014 [facility] [address] [id number] [address] [place] [address], [place] [address] 16 Jan, 2014 [facility] [address] [id number] [address] [place] [address], [place] [address] 16 Jan, 2014 [facility] [address] [id number] [address] [place] [address], [place] [address] Jan, [facility] [address] [id number] [address] [place] [address], [place] [address] Jan, [facility] [address] [id number] [address] [place] [address], [place] [address] Jan, [facility] [address] [id number] [address] [place] [address], [place] [address] Dec, [facility] [address] [id number] [address] [place] [address], [place] [address] Dec, [facility] [address] [id number] [address] [place] [address], [place] [address] Dec, [facility] [address] [id number] [address] [place] [address], [place] [address] Dec, [facility] [address] [id number] [address] [place] [address], [place] [address] Dec, [facility] [address] [id number] [address] [place] [address], [place] [address] Dec, [facility] [address] [id number] [address] [place] [address], [place] [address] Dec, [facility] [address] [id number] [address] [place] [address], [place] [address] Dec, [facility] [address] [id number] [address] [place] [address], [place] [address] Oct, [facility] [address] [id number] [address] [place] [address], [place] [address] Oct, [facility] [address] [id number] [address] [place] [address], [place] [address] September, [facility] [address] [id number] [address] [place] [address], [place] [address] September, [facility] [address] [id number] [address] [place] [address] September, [facility] [address] [id number] [address] [place] [address], [place] [address] September, [facility] [address] [id number] [address] [place] [address], [place] [address] September, [facility] [address] [id number] [address] [place] [address], [place] [address] September, [facility] [address] [id number] [address] [place] [address], [place] [address] September, [facility] [address] [id number] [address] [place] [address], [place] [address] Aug, [facility] [address] [id number] [address] [place] [address], [place] [address] Aug, [facility] [address] [id number] [address] [place] [address], [place] [address] Jul, [facility] [address] [id number] [address] [place] [address], [place] [address] Jul, [facility] [address] [id number] [address] [place] [address], [place] [address] Jul, [facility] [address] [id number] [address] [place] [address], [place] [address] 17 Jul, 2013 [facility] [address] [id number] [address] [place] [address], [place] [address] Jul, [facility] [address] [id number] [address] [place] [address], [place] [address] Jul, [facility] [address] [id number] [address] [place] [address], [place] [address] Jul, [facility] [address] [id number] [address] [place] [address], [place] [address] Jul, [facility] [address] [id number] [address] [place] [address], [place] [address] May, [facility] [address] [id number] [address] [place] [address], [place] [address] 15 May, 2013 [facility] [address] [id number] [address] [place] [address], [place] [address] 14 May, 2013 [facility] [address] [id number] [address] [place] [address], [place] [address] 14 May, 2013 [facility] [address] [id number] [address] [place] [address], [place] [address] 18 Apr, 2013 [facility] [address] [id number] [address] [place] [address], [place] [address] Mar, [facility] [address] [id number] [address] [place] [address], [place] [address] Mar, [facility] [address] [id number] [address] [place] [address], [place] [address] Mar, [facility] [address] [id number] [address] [place] [address], [place] [address] Mar, [facility] [address] [id number] [address] [place] [address], [place] [address] Mar, [facility] [address] [id number] [address] [place] [address], [place] [address] 18 Mar, 2013 [facility] [address] [id number] [address] [place] [address], [place] [address] 18 Mar, 2013 [facility] [address] [id number] [address] [place] [address], [place] [address] 18 Mar, 2013 [facility] [address] [id number] [address] [place] [address], [place] [address] Mar, [facility] [address] [id number] [address] [place] [address], [place] [address] Mar, [facility] [address] [id number] [address] [place] [address], [place] [address] 04 Mar, 2013 [facility] [address] [id number] [address] [place] [address], [place] [address] Mar, [facility] [address] [id number] [address] [place] [address], [place] [address] Feb, [facility] [address] [id number] [address] [place] [address], [place] [address] Feb, [facility] [address] [id number] [address] [place] [address], [place] [address] Feb, [facility] [address] [id number] [address] [place] [address], [place] [address] Feb, [facility] [address] [id number] [address] [place] [address], [place] [address] Feb, [facility] [address] [id number] [address] [place] [address], [place] [address] Jan, [facility] [address] [id number] [address] [place] [address], [place] [address] Dec, [facility] [address] [id number] [address] [place] [address], [place] [address] Dec, [facility] [address] [id number] [address] [place] [address], [place] [address] Dec, [facility] [address] [id number] [address] [place] [address], [place] [address] Nov, [facility] [address] [id number] [address] [place] [address], [place] [address] Nov, [facility] [address] [id number] [address] [place] [address], [place] [address] Nov, [facility] [address] [id number] [address] [place] [address], [place] [address] Oct, [facility] [address] [id number] [address] [place] [address], [place] [address] Oct, [facility] [address] [id number] [address] [place] [address], [place] [address] Oct, [facility] [address] [id number] [address] [place] [address], [place] [address] September, [facility] [address] [id number] [address] [place] [address], [place] [address] September, [facility] [address] [id number] [address] [place] [address], [place] [address] September, [facility] [address] [id number] [address] [place] [address], [place] [address] September, [facility] [address] [id number] [address] [place] [address], [place] [address] September, [facility] [address] [id number] [address] [place] [address], [place] [address] Aug, [facility] [address] [id number] [address] [place] [address], [place] [address] Aug, [facility] [address] [id number] [address] [place] [address], [place] [address] Aug, [facility] [address] [id number] [address] [place] [address], [place] [address] Jul, [facility] [address] [id number] [address] [place] [address], [place] [address] Jul, [facility] [address] [id number] [address] [place] [address], [place] [address] Jul, [facility] [address] [id number] [address] [place] [address], [place] [address] Jul, [facility] [address] [id number] [address] [place] [address], [place] [address] Jul, [facility] [address] [id number] [address] [place] [address], [place] [address] Jul, [facility] [address] [id number] [address] [place] [address], [place] [address] Jul, [facility] [address] [id number] [address] [place] [address], [place] [address] 14 May, 2012 [facility] [address] [id number] [address] [place] [address], [place] [address] May, [facility] [address] [id number] [address] [place] [address], [place] [address] May, [facility] [address] [id number] [address] [place] [address], [place] [address] Apr, [facility] [address] [id number] [address] [place] [address], [place] [address] Apr, [facility] [address] [id number] [address] [place] [address], [place] [address] Apr, [facility] [address] [id number] [address] [place] [address], [place] [address] Apr, [facility] [address] [id number] [address] [place] [address], [place] [address] Apr, [facility] [address] [id number] [address] [place] [address], [place] [address] Mar, [facility] [address] [id number] [address] [place] [address], [place] [address] Mar, [facility] [address] [id number] [address] [place] [address], [place] [address] Mar, [facility] [address] [id number] [address] [place] [address], [place] [address] Mar, [facility] [address] [id number] [address] [place] [address] Feb, [facility] [address] [id number] [address] [place] [address], [place] [address] Feb, [facility] [address] [id number] [address] [place] [address], [place] [address] Feb, [facility] [address] [id number] [address] [place] [address], [place] [address] Feb, [facility] [address] [id number] [address] [place] [address], [place] [address] Feb, [facility] [address] [id number] [address] [place] [address], [place] [address] Jan, [facility] [address] [id number] [address] [place] [address], [place] [address] Dec, [facility] [address] [id number] [address] [place] [address], [place] [address] Dec, [facility] [address] [id number] [address] [place] [address], [place] [address] Dec, [facility] [address] [id number] [address] [place] [address], [place] [address] Nov, [facility] [address] [id number] [address] [place] [address], [place] [address] Nov, [facility] [address] [id number] [address] [place] [address], [place] [address] Nov, [facility] [address] [id number] [address] [place] [address], [place] [address] Oct, [facility] [address] [id number] [address] [place] [address], [place] [address] Oct, [facility] [address] [id number] [address] [place] [address], [place] [address] Oct, [facility] [address] [id number] [address] [place] [address], [place] [address] Oct, [facility] [address] [id number] [address] [place] [address], [place] [address] September, [facility] [address] [id number] [address] [place] [address], [place] [address] September, [facility] [address] [id number] [address] [place] [address], [place] [address] 30 Aug, 2011 [facility] [address] [id number] [address] [place] [address], [place] [address] Aug, [facility] [address] [id number] [address] [place] [address], [place] [address] Aug, [facility] [address] [id number] [address] [place] [address], [place] [address] Aug, [facility] [address] [id number] [address] [place] [address], [place] [address] Aug, [facility] [address] [id number] [address] [place] [address], [place] [address] Aug, [facility] [address] [id number] [address] [place] [address], [place] [address] Aug, [facility] [address] [id number] [address] [place] [address], [place] [address] Jul, [facility] [address] [id number] [address] [place] [address], [place] [address] Jul, [facility] [address] [id number] [address] [place] [address], [place] [address] Jul, [facility] [address] [id number] [address] [place] [address], [place] [address] May, [facility] [address] [id number] [address] [place] [address], [place] [address] May, [facility] [address] [id number] [address] [place] [address], [place] [address] May, [facility] [address] [id number] [address] [place] [address], [place] [address] Apr, [facility] [address] [id number] [address] [place] [address], [place] [address] Apr, [facility] [address] [id number] [address] [place] [address], [place] [address] Mar, [facility] [address] [id number] [address] [place] [address], [place] [address] Mar, [facility] [address] [id number] [address] [address] Mar, [facility] [address] [id number] [address] [place] [address] Mar, [facility] [address] [id number] [address] [place] [address] Mar, [facility] [address] [id number] [address] [place] [address] Mar, [facility] [address] [id number] [address] [place] [address] Feb, [facility] [address] [id number] [address] [place] [address] Feb, [facility] [address] [id number] [address] [place] [address] Feb, IMMUNIZATIONS No Known Immunizations SOCIAL HISTORY Never Assessed REASON FOR VISIT PLAN OF CARE VITAL SIGNS Height 72 in 2014-01-22 Weight 265 lbs 2014-01-22 Temperature 98.8 degrees Fahrenheit 2014-01-22 Heart Rate 74 bpm 2014-01-22 Respiratory Rate 20 2014-01-22 Blood pressure systolic 138 mmHg 2014-01-22 Blood pressure diastolic 82 mmHg 2014-01-22 MEDICATIONS No Known Medications RESULTS No Results PROCEDURES Procedure Date Ordered Result Body Site GLYCATED HEMOGLOBIN TEST Jan 22, 2014 INSTRUCTIONS MEDICATIONS ADMINISTERED No Known Medications MEDICAL [...] foot infections x 3 2015 Hospitalization History [facility] - right big t oe removed 2018
--- OUTSIDE RECORDS SUMMARY | 2020-01-03 07:35 | XMS REPORT ---
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 Name Role Phone FERNY SILVERIO Unavailable PROBLEMS Type Condition ICD9-CM Code VHP11-ZO Code Onset Dates Condition S tatus SNOMED Code Problem Hypertension I10 Active 7637785 3 Problem Hypoxia R09.02 Active 774080218 Problem COPD (chronic obstructive pulmonary disease) J44.9 Active 80782301 Problem Lumbar radiculopathy, chronic M54.16 Active 978221553 Problem penitentiary current use of insulin Z79.4 Active 488847959 Problem Recurrent major depressive disorder, in full remission F33.42 Active 228560009 Problem Hyperlipidemia, unspecified E78.5 Ac tive 64253029 Problem PAD (peripheral artery disease) I73.9 Active 034605892 Problem Type 2 diabetes mellitus with other specified complication E11.69 Active 084438040771 Problem Anxiety F41.9 Active 95643544 Problem Type 2 diabetes mellitus wit h diabetic peripheral angiopathy without gangrene E11.51 Active 575407452 Problem ED (erectile dysfunction) of organic origin N52.9 Active 845304070 Problem Arthritis M19.90 Active 9279617 Problem Morbid (severe) obesity due to excess calories E66 .01 Active 304738510 ALLERGIES No Information ENCOUNTERS Encounter Location Date Diagnosis [facility] [id number] [place] [address] Aug, [facility] [address] [address] Jul, [facility] [address] [address] Jul, Anxiety F41.9 [facility] [address] [address] Jul, Anxiety F41.9 [place] [address] [address] Jul, Back pain M54.9 [facility] [address] [address] Jul, Back pain M54.9 [facility] [address] [address] Jul, Lumbar radiculopathy, chronic M54.16 [place] [address] [address] Jul, Back pain M54.9 [place] [address] [address] 07 Jul, 2019 Encounter for Medicare annual wellness e xam Z00.00 ; COPD (chronic obstructive pulmonary disease) [...] diabetes mellitus with other specified complication E11.69 [place] [address] [address] Jul, Back pain M54.9 [place] [address] [address] Jul, Anxiety F41.9 [place] [address] [address] May, [place] [address] [address] May, Lumbar radiculopathy, chronic M54.16 [place] [address] [address] May, Back pain M54.9 [place] [address] [address] May, [facility] [address] [address] 06 May, 2019 Back pain M54.9 and Anxiety F41.9 [facility] [address] [address] May, [facility] [address] [address] May, Type 2 diabetes mellitus with diabetic p eripheral angiopathy without gangrene E11.51 ; Arthritis M19.90 ; ED (erectile dysfunction) of organic origin N52.9 ; Morbid (severe) obesity due to excess calories E66.01 and Lumbar radiculopathy, chronic M54.16 [place] [address] [address] May, Diabetes E11.9 [place] [address] [address] Apr, [place] [address] [address] Apr, Back pain M54.9 [place] [address] [address] Apr, [place] [address] [address] Apr, Anxiety F41.9 [place] [address] [address] Apr, Back pain M54.9 and Lumbar radiculopathy , chronic M54.16 [place] [address] [address] Apr, Back pain M54.9 ; Anxiety F41.9 and Lumb ar radiculopathy, chronic M54.16 [facility] [address] [address] Mar, [facility] [address] [address] Mar, [facility] [address] [address] Mar, Back pain M54.9 [facility] [address] [address] Mar, [facility] [address] [address] Feb, Type 2 diabetes mellitus with diabetic p eripheral angiopathy without gangrene E11.51 ; Lumbar radiculopathy, chronic M54.16 ; ED (erectile dysfunction) of organic origin N52.9 ; Encounter for immunization Z23 ; COPD (chronic obstructive pulmonary disease) J44.9 and Anxiety F41.9 [facility] [address] [address] Feb, Back pain M54.9 [facility] [address] [address] Feb, [facility] [address] [address] Feb, [facility] [address] [address] Feb, [facility] [address] [address] Feb, Back pain M54.9 [facility] [address] [address] Feb, [facility] [address] [address] Jan, Anxiety F41.9 [facility] [address] [address] Jan, Anxiety F41.9 [facility] [address] [address] Jan, [facility] [address] [address] Jan, [facility] [address] [address] Jan, Back pain M54.9 [facility] [address] [address] Jan, [facility] [address] [address] Dec, Acute non-recurrent frontal sinusitis J0 1.10 [facility] [address] [address] Dec, Acute non-recurrent frontal sinusitis J0 1.10 [facility] [address] [address] Dec, Type 2 diabetes mellitus with diabetic p eripheral angiopathy without gangrene E11.51 ; Lumbar radiculopathy, chronic M54.16 ; Recurrent major depressive disorder, in full remission F33.42 and Anxiety F41.9 [facility] [address] [address] Dec, [facility] [address] [address] Nov, Anxiety F41.9 [facility] [address] [address] Nov, [facility] [address] [address] Nov, Back pain M54.9 [facility] [address] [address] Nov, [facility] [address] [address] Nov, Back pain M54.9 [facility] [address] [address] Nov, Anxiety F41.9 [facility] [address] [address] Nov, [facility] [address] [address] Oct, Back pain M54.9 [facility] [address] [address] Oct, [facility] [address] [address] Oct, [facility] [address] [address] Oct, [facility] [address] [address] September, Back pain M54.9 [facility] [address] [address] September, [facility] [address] [address] September, [facility] [address] [address] September, [facility] [address] [address] Aug, Back pain M54.9 [facility] [address] [address] Aug, Anxiety F41.9 [facility] [address] [address] Aug, [facility] [address] [address] Aug, Pressure ulcer of other site, stage 3 L8 9.893 and COPD (chronic obstructive pulmonary disease) J44.9 [facility] [address] [address] Aug, History of smoking Z87.891 [facility] [address] [address] Jul, Type 2 diabetes mellitus with diabetic p eripheral angiopathy without gangrene E11.51 [facility] [address] [address] Jul, Back pain M54.9 [facility] [address] [address] Jul, Anxiety F41.9 [facility] [address] [address] Jul, [place] [address] [address] Jul, Back pain M54.9 [place] [address] [address] Jul, Back pain M54.9 [place] [address] [address] Jul, Lumbar radiculopathy, chronic M54.16 ; H ypertension I10 and Type 2 diabetes mellitus with diabetic peripheral angiopathy without gangrene E11.51 [place] [address] [address] Jul, Back pain M54.9 [place] [address] [address] Jul, Back pain M54.9 and Anxiety F41.9 [place] [address] [address] Jul, [place] [address] [address] May, Back pain M54.9 and Anxiety F41.9 [place] [address] [address] May, [place] [address] [address] Apr, Radiculopathy of lumbar region M54.16 ; Back pain M54.9 and Anxiety F41.9 [place] [address] [address] Apr, Diabetes E11.9 ; Muscle spasm M62.838 an d Lumbar radiculopathy, chronic M54.16 [facility] [address] [address] Apr, [place] [address] [address] Apr, [place] [address] [address] Mar, Back pain M54.9 and Anxiety F41.9 [place] [address] [address] Mar, [place] [address] [address] Mar, [place] [address] [address] Mar, [place] [address] [address] Mar, Encounter for immunization Z23 [place] [address] [address] Feb, Back pain M54.9 and Anxiety F41.9 [address] [address] [address] Feb, Back pain M54.9 and Anxiety F41.9 [address] [address] [address] Jan, Back pain M54.9 and Anxiety F41.9 [address] [address] [address] Jan, [place] [address] [address] Dec, [place] [address] [address] Dec, Back pain M54.9 and Anxiety F41.9 [address] [address] [address] Dec, Diabetes E11.9 ; Type 2 diabetes mellitu s with diabetic peripheral angiopathy without gangrene E11.51 ; Lumbar radiculopathy, chronic M54.16 ; COPD (chronic obstructive pulmonary disease) J44.9 and Anxiety F41.9 [facility] [address] [address] Dec, Back pain M54.9 and Anxiety F41.9 [address] [address] [address] Nov, Back pain M54.9 and Anxiety F41.9 [address] [address] [address] Oct, [place] [address] [address] Oct, Back pain M54.9 and Anxiety F41.9 [address] [address] [address] September, Anxiety F41.9 and Back pain M54.9 [address] [address] [address] September, Diabetes E11.9 ; Hypertension I10 ; COPD (chronic obstructive pulmonary disease) J44.9 and Lumbar radiculopathy, chronic M54.16 [place] [address] [address] September, Anxiety F41.9 [address] [address] [address] Aug, [address] [address] [address] Aug, [place] [address] [address] Aug, Anxiety F41.9 and Back pain M54.9 [address] [address] [address] Aug, Medicare annual wellness visit, initial Z00.00 ; COPD (chronic obstructive pulmonary disease) J44.9 ; PAD (peripheral artery disease) I73.9 ; Insulin long-term use Z79.4 ; Hypertension I10 ; Anxiety F41.9 ; Recurrent major depressive disorder, in full remission F33.42 ; Pressure ulcer of other site, stage 3 L89.893 ; Type 2 diabetes mellitus with diabetic peripheral angiopathy without gangrene E11.51 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 [place] [address] [address] Jul, Back pain M54.9 [address] [place] [address] [address] Jul, [place] [address] [address] Jul, Anxiety F41.9 and Back pain M54.9 [address] [address] [address] Jul, Diabetes E11.9 [place] [address] [address] May, [address] [address] [address] May, Diabetes E11.9 ; Anxiety F41.9 ; Back pa in M54.9 and COPD (chronic obstructive pulmonary disease) J44.9 [place] [address] [address] May, Back pain M54.9 [address] [address] [address] May, [place] [address] [address] Apr, Back pain M54.9 [place] [address] [address] Mar, Back pain M54.9 [address] [address] [address] Mar, [place] [address] [address] 16 Mar, 2017 [facility] [address] [address] 14 Mar, 2017 Radiculopathy of lumbar region M54.16 [place] [address] [address] 13 Mar, 2017 [facility] [address] [address] 07 Mar, 2017 Encounter for immunization Z23 and Lumba r radiculopathy, chronic M54.16 [address] [address] [address] 01 Mar, 2017 Back pain M54.9 and Anxiety F41.9 [facility] [address] [facility] [id number] [place] [address] 10 Feb, 2017 Acute bilateral low back boy n with left-sided sciatica M54.42 and Acute bilateral low back pain with right-sided sciatica M54.41 [place] [address] [address] Feb, [place] [address] [address] 03 Feb, 2017 Back pain M54.9 [address] [address] [address] 05 Jan, 2017 Back pain M54.9 and Anxiety F41.9 [place] [address] [address] 05 Jan, 2017 Diabetes E11.9 [facility] [address] [address] 14 Dec, 2016 Diabetes E11.9 ; Back pain M54.9 ; Anxie ty F41.9 and Insulin long-term use Z79.4 [place] [address] [address] Dec, Anxiety F41.9 [address] [address] [address] 08 Dec, 2016 Back pain M54.9 [facility] [address] [address] Nov, Back pain M54.9 [facility] [address] [address] Oct, Back pain M54.9 and Anxiety F41.9 [facility] [address] [address] September, Back pain M54.9 [facility] [address] [address] September, Back pain M54.9 and Anxiety F41.9 [facility] [address] [address] Aug, Diabetes E11.9 ; Anxiety F41.9 ; Back pa in M54.9 and PAD (peripheral artery disease) I73.9 [facility] [address] [address] Aug, Anxiety F41.9 [facility] [address] [address] 14 Aug, 2016 Back pain M54.9 [facility] [address] [address] 23 Jul, 2016 Back pain M54.9 [facility] [address] [address] 13 Jul, 2016 Back pain M54.9 [facility] [address] [address] 23 Jul, 2016 Back pain M54.9 [facility] [address] [address] 16 Jul, 2016 Dorsalgia M54.9 [facility] [address] [address] 14 Jul, 2016 [facility] [address] [address] May, Back pain M54.9 [facility] [address] [address] May, Diabetes E11.9 ; Anxiety F41.9 ; Port ca theter in place Z95.828 ; Encounter for immunization Z23 and Insulin long-term use Z79.4 [facility] [address] [address] Apr, Back pain M54.9 [facility] [address] [address] Apr, Back pain M54.9 [facility] [address] [address] Apr, [facility] [address] [address] Apr, Back pain M54.9 [facility] [address] [address] Mar, COPD (chronic obstructive pulmonary dise ase) J44.9 [facility] [address] [address] Feb, [facility] [address] [address] Jan, [facility] [address] [address] Jan, [facility] [address] [address] Jan, [facility] [address] [address] Jan, [facility] [address] [address] Dec, Diabetes E11.9 ; Hypoxia R09.02 and Back pain M54.9 [facility] [address] [address] Dec, [place] [id number] [place] [address] Nov, [facility] [address] [address] Oct, Anxiety F41.9 [facility] [address] [address] Oct, Back pain M54.9 [facility] [address] [address] September, Back pain M54.9 [facility] [address] [address] September, Diabetes E11.9 [facility] [address] [address] September, [facility] [address] [address] September, Diabetes E11.9 ; Insulin long-term use Z 79.4 and Back pain M54.9 [facility] [address] [address] Aug, Back pain M54.9 [facility] [address] [address] Aug, Back pain M54.9 ; Anxiety F41.9 and Arth ropathy, unspecified M12.9 [facility] [address] [address] Jul, Back pain M54.9 [facility] [address] [address] Jul, Anxiety F41.9 [facility] [address] [address] Jul, Back pain M54.9 [facility] [address] [address] Jul, [facility] [address] [address] Jul, [facility] [address] [address] May, Back pain M54.9 ; Diabetes E11.9 ; Insul in long-term use Z79.4 ; COPD (chronic obstructive pulmonary disease) J44.9 and Hypertension I10 [place] [address] [address] May, Chronic pain G89.29 [place] [address] [address] Apr, [place] [address] [address] Apr, [place] [address] [address] Mar, [place] [address] [address] Mar, Encounter for immunization Z23 and Diabe boris E11.9 [place] [address] [address] Feb, [place] [address] [address] Feb, [place] [address] [address] Jan, [place] [address] [address] Jan, [place] [address] [address] Dec, [facility] [address] [address] Dec, [place] [address] [address] Dec, Unspecified arthropathy, site unspecifie d 716.90 and Diabetes mellitus type 2, uncontrolled 250.02 [place] [address] [address] Dec, [facility] [place] [facility] [address] [facility] [id number] [facility] [address] Nov, [facility] [place] [facility] [address] [facility] [id number] [facility] [address] Oct, [facility] [place] [facility] [address] [id number] [facility] [address] September, [facility] [place] [facility] [address] [facility] [id number] [facility] [address] September, [facility] [place] [facility] [address] [facility] [id number] [facility] [address] September, [facility] [place] [facility] [address] [facility] [id number] [place] [address] September, [facility] [place] [facility] [address] [id number] [place] [address] 14 Aug, 2014 [facility] [place] [facility] [address] [id number] [place] [address] 13 Aug, 2014 [facility] [place] [facility] [address] [facility] [id number] [place] [address] 18 Jul, 2014 [facility] [place] [facility] [address] [id number] [place] [address] 18 Jul, 2014 [facility] [address] [id number] [place] [address] 16 Jul, 2014 [facility] [address] [id number] [place] [address] 16 Jul, 2014 [facility] [address] [facility] [id number] [place] [address] 16 Jul, 2014 [facility] [address] [facility] [id number] [place] [address] 16 Jul, 2014 [facility] [address] [id number] [place] [address] 16 Jul, 2014 [facility] [address] [id number] [place] [address] 16 Jul, 2014 [facility] [address] [id number] [place] [address] 16 Jul, 2014 [facility] [address] [facility] [id number] [place] [address] Jul, [facility] [address] [id number] [place] [address] Jul, 2014 [facility] [address] [id number] [place] [address] 09 Jul, 2014 [facility] [address] [id number] [place] [address] Jul, 2014 [facility] [address] [id number] [place] [address] 17 Jul, 2014 [facility] [address] [id number] [place] [address] 17 Jul, 2014 [facility] [address] [id number] [place] [address] 16 Jul, 2014 [facility] [address] [id number] [place] [address] 16 Jul, 2014 [facility] [address] [id number] [place] [address] 16 Jul, 2014 [facility] [address] [id number] [place] [address] 16 Jul, 2014 [facility] [address] [id number] [place] [address] 16 Jul, 2014 [facility] [address] [id number] [place] [address] 16 Jul, 2014 [facility] [address] [id number] [place] [address] 16 Jul, 2014 [facility] [address] [id number] [place] [address] 16 Jul, 2014 [facility] [address] [id number] [place] [address] 16 Jul, 2014 [facility] [address] [id number] [place] [address] Jul, [facility] [address] [facility] [id number] [place] [address] Jul, [facility] [address] [id number] [place] [address] Jul, [facility] [address] [id number] [place] [address] Jul, [facility] [address] [id number] [place] [address] Jul, [facility] [address] [id number] [place] [address] May, [facility] [address] [id number] [place] [address] May, [facility] [address] [id number] [place] [address] May, [facility] [address] [id number] [place] [address] May, [facility] [address] [id number] [place] [address] May, [facility] [address] [id number] [place] [address] May, [facility] [address] [id number] [place] [address] May, [facility] [address] [id number] [place] [address] May, [facility] [address] [id number] [place] [address] May, [facility] [address] [id number] [place] [address] May, [facility] [address] [id number] [place] [address] Apr, [facility] [address] [id number] [place] [address] Apr, [facility] [address] [id number] [place] [address] 15 Apr, 2014 [facility] [address] [id number] [place] [address] Apr, [facility] [address] [id number] [place] [address] Apr, [facility] [address] [id number] [place] [address] Apr, [facility] [address] [id number] [place] [address] Mar, [facility] [address] [id number] [place] [address] Mar, [facility] [address] [id number] [place] [address] Mar, [facility] [id number] [place] [address] Mar, [facility] [address] [id number] [place] [address] Mar, [facility] [address] [id number] [place] [address] Mar, [facility] [address] [id number] [place] [address] Mar, [facility] [address] [id number] [place] [address] Mar, [facility] [address] [id number] [place] [address] Mar, [facility] [address] [id number] [place] [address] Mar, [facility] [id number] [place] [address] Mar, [facility] [address] [id number] [place] [address] Feb, [facility] [address] [id number] [place] [address] Feb, [facility] [address] [facility] [id number] [place] [address] Feb, [facility] [address] [facility] [id number] [place] [address] Feb, [facility] [address] [id number] [place] [address] Feb, [facility] [address] [id number] [place] [address] Feb, [facility] [address] [facility] [id number] [place] [address] Feb, [facility] [address] [id number] [place] [address] Feb, [facility] [address] [id number] [place] [address] Feb, [facility] [address] [id number] [place] [address] Feb, [facility] [address] [id number] [place] [address] Jan, 2013 [facility] [address] [id number] [place] [address] 22 Jan, 2013 [facility] [address] [id number] [place] [address] 16 Jan, 2013 [facility] [address] [id number] [place] [address] 16 Jan, 2013 [facility] [address] [id number] [place] [address] 12 Jan, 2013 [facility] [address] [id number] [place] [address] Jan, 2013 [facility] [address] [id number] [place] [address] Jan, 2013 [facility] [address] [id number] [place] [address] Dec, [facility] [address] [id number] [facility] [address] Dec, [facility] [address] [id number] [facility] [address] Dec, [facility] [address] [facility] [id number] [facility] [address] Dec, [facility] [address] [id number] [facility] [address] Dec, [facility] [address] [facility] [id number] [facility] [address] Dec, [facility] [address] [facility] [id number] [facility] [address] Dec, [facility] [address] [id number] [place] [address] Dec, [facility] [address] [id number] [place] [address] Oct, [facility] [address] [id number] [place] [address] Oct, [facility] [address] [facility] [id number] [place] [address] September, [facility] [address] [id number] [place] [address] September, [facility] [address] [id number] [place] [address] September, [facility] [address] [id number] [place] [address] September, [facility] [address] [facility] [id number] [place] [address] September, [facility] [address] [id number] [place] [address] September, [facility] [address] [id number] [place] [address] September, [facility] [address] [id number] [place] [address] Aug, [facility] [address] [id number] [place] [address] 15 Aug, 2013 [facility] [address] [id number] [place] [address] Jul, [facility] [address] [id number] [place] [address] 24 Jul, 2013 [facility] [address] [id number] [place] [address] Jul, [facility] [address] [id number] [place] [address] Jul, [facility] [address] [id number] [place] [address] Jul, [facility] [address] [id number] [place] [address] Jul, [facility] [id number] [place] [address] Jul, [facility] [address] [id number] [place] [address] Jul, [facility] [address] [id number] [place] [address] May, [facility] [address] [id number] [place] [address] May, [facility] [address] [id number] [place] [address] May, [facility] [address] [id number] [place] [address] May, [facility] [address] [id number] [place] [address] Apr, [facility] [address] [id number] [place] [address] Mar, [facility] [address] [id number] [place] [address] Mar, [facility] [address] [id number] [place] [address] Mar, [facility] [address] [id number] [place] [address] Mar, [facility] [address] [id number] [place] [address] Mar, [facility] [address] [id number] [place] [address] Mar, [facility] [address] [id number] [place] [address] Mar, [facility] [address] [id number] [place] [address] Mar, [facility] [address] [id number] [place] [address] Mar, [facility] [address] [id number] [place] [address] Mar, [facility] [address] [id number] [place] [address] Mar, [facility] [address] [id number] [place] [address] Mar, [facility] [address] [id number] [place] [address] Feb, [facility] [address] [id number] [place] [address] Feb, [facility] [address] [id number] [place] [address] Feb, [facility] [address] [id number] [place] [address] Feb, [facility] [address] [id number] [place] [address] Feb, [facility] [address] [id number] [place] [address] Jan, [facility] [address] [id number] [place] [address] Dec, [facility] [address] [facility] [id number] [facility] [address] Dec, [facility] [address] [facility] [id number] [place] [address] Dec, [facility] [address] [id number] [place] [address] Nov, [facility] [address] [id number] [place] [address] Nov, [facility] [address] [id number] [place] [address] Nov, [facility] [address] [id number] [place] [address] Oct, [facility] [address] [id number] [place] [address] Oct, [facility] [address] [id number] [place] [address] Oct, [facility] [address] [id number] [place] [address] September, [facility] [address] [id number] [place] [address] September, [facility] [address] [id number] [place] [address] September, [facility] [address] [id number] [place] [address] September, [facility] [address] [id number] [place] [address] September, [facility] [address] [id number] [place] [address] Aug, [facility] [address] [id number] [place] [address] Aug, [facility] [address] [id number] [place] [address] Aug, [facility] [address] [id number] [place] [address] Jul, [facility] [address] [id number] [place] [address] Jul, [facility] [address] [id number] [place] [address] Jul, [facility] [address] [id number] [place] [address] Jul, [facility] [id number] [place] [address] Jul, [facility] [address] [id number] [place] [address] Jul, [facility] [address] [id number] [place] [address] Jul, [facility] [address] [id number] [place] [address] May, [facility] [id number] [place] [address] May, [facility] [address] [id number] [place] [address] May, [facility] [id number] [place] [address] Apr, [facility] [address] [id number] [place] [address] Apr, [facility] [id number] [place] [address] Apr, [facility] [address] [id number] [place] [address] Apr, [facility] [address] [id number] [place] [address] Apr, [facility] [address] [id number] [place] [address] Mar, [facility] [id number] [place] [address] Mar, [facility] [address] [id number] [place] [address] Mar, [facility] [address] [id number] [place] [address] Mar, [facility] [address] [id number] [place] [address] Feb, [facility] [address] [id number] [place] [address] Feb, [facility] [address] [id number] [place] [address] Feb, [facility] [address] [id number] [place] [address] Feb, [facility] [address] [id number] [place] [address] Feb, [facility] [address] [id number] [place] [address] Jan, [facility] [address] [id number] [place] [address] Dec, [facility] [address] [id number] [place] [address] Dec, [facility] [address] [id number] [place] [address] Dec, [facility] [address] [id number] [place] [address] Nov, [facility] [address] [id number] [place] [address] Nov, [facility] [address] [id number] [place] [address] Nov, [facility] [address] [id number] [place] [address] Oct, [facility] [address] [id number] [place] [address] Oct, [facility] [address] [id number] [place] [address] Oct, [facility] [address] [id number] [place] [address] Oct, [facility] [address] [id number] [place] [address] September, [facility] [address] [id number] [place] [address] September, [facility] [address] [id number] [place] [address] Aug, [facility] [address] [id number] [place] [address] Aug, [facility] [address] [id number] [place] [address] Aug, [facility] [address] [id number] [place] [address] Aug, [facility] [address] [id number] [place] [address] Aug, [facility] [address] [id number] [place] [address] Aug, [facility] [address] [id number] [place] [address] Aug, [facility] [address] [id number] [place] [address] Jul, [facility] [address] [id number] [place] [address] Jul, [facility] [address] [id number] [place] [address] Jul, [facility] [address] [id number] [place] [address] May, [facility] [address] [id number] [place] [address] May, [facility] [address] [id number] [place] [address] May, [facility] [address] [id number] [place] [address] Apr, [facility] [address] [id number] [place] [address] Apr, [facility] [address] [id number] [place] [address] Mar, [facility] [address] [id number] [place] [address] Mar, [facility] [id number] [place] [address] Mar, [facility] [address] [id number] [place] [address] Mar, [facility] [id number] [place] [address] Mar, [facility] [address] [id number] [place] [address] Mar, [facility] [id number] [place] [address] Feb, [facility] [address] [id number] [place] [address] Feb, [facility] [address] [id number] [place] [address] Feb, IMMUNIZATIONS No Known Immunizations SOCIAL HISTORY [...] foot infections x 3 2015 Hospitalization History [facility] - right big t oe removed 2018
--- OUTSIDE RECORDS SUMMARY | 2020-01-03 07:35 | XMS REPORT ---
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.4 Active 151988367 Problem Recurrent major depressive disorder, in full remission F33.42 Active 618902012 Problem Hyperlipidemia, unspecified E78.5 Ac tive 88256122 Problem PAD (peripheral artery disease) I73.9 Active 086865974 Problem Type 2 diabetes mellitus with other specified complication E11.69 Active 059715163971 Problem Anxiety F41.9 Active 84972301 Problem Type 2 diabetes mellitus wit h diabetic peripheral angiopathy without gangrene E11.51 Active 699833584 Problem ED (erectile dysfunction) of organic origin N52.9 Active 622776397 Problem Arthritis M19.90 Active 9412314 Problem Morbid (severe) obesity due to excess calories E66 .01 Active 438587370 ALLERGIES No Information ENCOUNTERS Encounter Location Date Diagnosis [facility] [id number] [place] [address] 09 Aug, 2019 [facility] [address] [address] 13 Jul, 2019 Anxiety F41.9 [facility] [address] [address] 12 Jul, 2019 Anxiety F41.9 [facility] [address] [address] 02 Jul, 2019 Back pain M54.9 [facility] [address] [address] Jul, Back pain M54.9 [facility] [address] [address] Jul, Lumbar radiculopathy, chronic M54.16 [facility] [address] [address] Jul, Back pain M54.9 [facility] [address] [address] 07 Jul, 2019 Encounter for Medicare annual [...] diabetes mellitus with other specified complication E11.69 [place] [address] [address] Jul, Back pain M54.9 [place] [address] [address] Jul, Anxiety F41.9 [place] [address] [address] May, [place] [address] [address] May, Lumbar radiculopathy, chronic M54.16 [place] [address] [address] May, Back pain M54.9 [facility] [address] [address] May, [facility] [address] [address] May, Back pain M54.9 and Anxiety F41.9 [facility] [address] [address] May, [place] [address] [address] May, Type 2 diabetes mellitus with diabetic p eripheral angiopathy without gangrene E11.51 ; Arthritis M19.90 ; ED (erectile dysfunction) of organic origin N52.9 ; Morbid (severe) obesity due to excess calories E66.01 and Lumbar radiculopathy, chronic M54.16 [place] [address] [address] 02 May, 2019 Diabetes E11.9 [place] [address] [address] Apr, [place] [address] [address] Apr, Back pain M54.9 [place] [address] [address] Apr, [place] [address] [address] Apr, Anxiety F41.9 [place] [address] [address] 10 Apr, 2019 Back pain M54.9 and Lumbar radiculopathy , chronic M54.16 [place] [address] [address] Apr, Back pain M54.9 ; Anxiety F41.9 and Lumb ar radiculopathy, chronic M54.16 [place] [address] [address] Mar, [place] [address] [address] Mar, [place] [address] [address] Mar, Back pain M54.9 [facility] [address] [address] Mar, [facility] [address] [address] Feb, Type 2 diabetes mellitus with diabetic p eripheral angiopathy without gangrene E11.51 ; Lumbar radiculopathy, chronic M54.16 ; ED (erectile dysfunction) of organic origin N52.9 ; Encounter for immunization Z23 ; COPD (chronic obstructive pulmonary disease) J44.9 and Anxiety F41.9 [facility] [address] [address] Feb, Back pain M54.9 [facility] [address] [address] Feb, [facility] [address] [address] Feb, [facility] [address] [address] Feb, [facility] [address] [address] Feb, Back pain M54.9 [facility] [address] [address] Feb, [facility] [address] [address] Jan, Anxiety F41.9 [facility] [address] [address] Jan, Anxiety F41.9 [facility] [address] [address] Jan, [facility] [address] [address] Jan, [facility] [address] [address] Jan, Back pain M54.9 [facility] [address] [address] Jan, [facility] [address] [address] Dec, Acute non-recurrent frontal sinusitis J0 1.10 [facility] [address] [address] Dec, Acute non-recurrent frontal sinusitis J0 1.10 [facility] [address] [address] Dec, Type 2 diabetes mellitus with diabetic p eripheral angiopathy without gangrene E11.51 ; Lumbar radiculopathy, chronic M54.16 ; Recurrent major depressive disorder, in full remission F33.42 and Anxiety F41.9 [facility] [address] [address] Dec, [facility] [address] [address] Nov, Anxiety F41.9 [facility] [address] [address] Nov, [facility] [address] [address] Nov, Back pain M54.9 [facility] [address] [address] Nov, [facility] [address] [address] Nov, Back pain M54.9 [facility] [address] [address] Nov, Anxiety F41.9 [facility] [address] [address] Nov, [facility] [address] [address] Oct, Back pain M54.9 [facility] [address] [address] Oct, [facility] [address] [address] Oct, [facility] [address] [address] Oct, [facility] [address] [address] September, Back pain M54.9 [facility] [address] [address] September, [facility] [address] [address] September, [facility] [address] [address] September, [facility] [address] [address] Aug, Back pain M54.9 [facility] [address] [address] Aug, Anxiety F41.9 [facility] [address] [address] Aug, [facility] [address] [address] Aug, Pressure ulcer of other site, stage 3 L8 9.893 and COPD (chronic obstructive pulmonary disease) J44.9 [facility] [address] [address] Aug, History of smoking Z87.891 [facility] [address] [address] Jul, Type 2 diabetes mellitus with diabetic p eripheral angiopathy without gangrene E11.51 [facility] [address] [address] Jul, Back pain M54.9 [facility] [address] [address] 19 Jul, 2018 Anxiety F41.9 [place] [address] [address] 18 Jul, 2018 [place] [address] [address] 13 Jul, 2018 Back pain M54.9 [place] [address] [address] Jul, Back pain M54.9 [place] [address] [address] Jul, Lumbar radiculopathy, chronic M54.16 ; H ypertension I10 and Type 2 diabetes mellitus with diabetic peripheral angiopathy without gangrene E11.51 [place] [address] [address] Jul, Back pain M54.9 [place] [address] [address] Jul, Back pain M54.9 and Anxiety F41.9 [place] [address] [address] Jul, [place] [address] [address] May, Back pain M54.9 and Anxiety F41.9 [place] [address] [address] May, [place] [address] [address] Apr, Radiculopathy of lumbar region M54.16 ; Back pain M54.9 and Anxiety F41.9 [place] [address] [address] Apr, Diabetes E11.9 ; Muscle spasm M62.838 an d Lumbar radiculopathy, chronic M54.16 [place] [address] [address] Apr, [facility] [address] [address] Apr, [facility] [address] [address] Mar, Back pain M54.9 and Anxiety F41.9 [place] [address] [address] Mar, [facility] [address] [address] Mar, [facility] [address] [address] Mar, [place] [address] [address] Mar, Encounter for immunization Z23 [place] [address] [address] Feb, Back pain M54.9 and Anxiety F41.9 [place] [address] [address] Feb, Back pain M54.9 and Anxiety F41.9 [place] [address] [address] Jan, Back pain M54.9 and Anxiety F41.9 [place] [address] [address] Jan, [facility] [address] [address] Dec, [facility] [address] [address] Dec, Back pain M54.9 and Anxiety F41.9 [facility] [address] [address] Dec, Diabetes E11.9 ; Type 2 diabetes mellitu s with diabetic peripheral angiopathy without gangrene E11.51 ; Lumbar radiculopathy, chronic M54.16 ; COPD (chronic obstructive pulmonary disease) J44.9 and Anxiety F41.9 [place] [address] [address] Dec, Back pain M54.9 and Anxiety F41.9 [place] [address] [address] Nov, Back pain M54.9 and Anxiety F41.9 [place] [address] [address] Oct, [place] [address] [address] Oct, Back pain M54.9 and Anxiety F41.9 [place] [address] [address] September, Anxiety F41.9 and Back pain M54.9 [place] [address] [address] September, Diabetes E11.9 ; Hypertension I10 ; COPD (chronic obstructive pulmonary disease) J44.9 and Lumbar radiculopathy, chronic M54.16 [place] [address] [address] September, Anxiety F41.9 [place] [address] [address] Aug, [place] [address] [address] Aug, [place] [address] [address] Aug, Anxiety F41.9 and Back pain M54.9 [place] [address] [address] Aug, Medicare annual wellness visit, initial Z00.00 ; COPD (chronic obstructive pulmonary disease) J44.9 ; PAD (peripheral artery disease) I73.9 ; Insulin long-term use Z79.4 ; Hypertension I10 ; Anxiety F41.9 ; Recurrent major depressive disorder, in full remission F33.42 ; Pressure ulcer of other site, stage 3 L89.893 ; Type 2 diabetes mellitus with diabetic peripheral angiopathy without gangrene E11.51 and 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 [facility] [address] [address] Jul, Back pain M54.9 [facility] [address] [address] Jul, [place] [address] [address] Jul, Anxiety F41.9 and Back pain M54.9 [place] [address] [address] Jul, Diabetes E11.9 [place] [address] [address] May, [place] [address] [address] May, Diabetes E11.9 ; Anxiety F41.9 ; Back pa in M54.9 and COPD (chronic obstructive pulmonary disease) J44.9 [place] [address] [address] May, Back pain M54.9 [place] [address] [address] May, [place] [address] [address] Apr, Back pain M54.9 [facility] [address] [address] Mar, Back pain M54.9 [address] [address] [address] Mar, [facility] [address] [address] Mar, [place] [address] [address] 14 Mar, 2017 Radiculopathy of lumbar region M54.16 [place] [address] [address] 13 Mar, 2017 [place] [address] [address] 07 Mar, 2017 Encounter for immunization Z23 and Lumba r radiculopathy, chronic M54.16 [facility] [address] [address] 01 Mar, 2017 Back pain M54.9 and Anxiety F41.9 [facility] [address] [facility] [id number] [address] [place] [address] 10 Feb, 2017 Acute bilateral low back boy n with left-sided sciatica M54.42 and Acute bilateral low back pain with right-sided sciatica M54.41 [place] [address] [address] Feb, [place] [address] [address] Feb, Back pain M54.9 [place] [address] [address] 05 Jan, 2017 Back pain M54.9 and Anxiety F41.9 [place] [address] [address] Jan, Diabetes E11.9 [place] [address] [address] Dec, Diabetes E11.9 ; Back pain M54.9 ; Anxie ty F41.9 and Insulin long-term use Z79.4 [place] [address] [address] Dec, Anxiety F41.9 [place] [address] [address] Dec, Back pain M54.9 [place] [address] [address] Nov, Back pain M54.9 [facility] [address] [address] Oct, Back pain M54.9 and Anxiety F41.9 [facility] [address] [address] September, Back pain M54.9 [facility] [address] [address] September, Back pain M54.9 and Anxiety F41.9 [facility] [address] [address] Aug, Diabetes E11.9 ; Anxiety F41.9 ; Back pa in M54.9 and PAD (peripheral artery disease) I73.9 [facility] [address] [address] Aug, Anxiety F41.9 [facility] [address] [address] Aug, Back pain M54.9 [facility] [address] [address] Jul, Back pain M54.9 [facility] [address] [address] Jul, Back pain M54.9 [facility] [address] [address] 23 Jul, 2016 Back pain M54.9 [facility] [address] [address] 16 Jul, 2016 Dorsalgia M54.9 [facility] [address] [address] 14 Jul, 2016 [facility] [address] [address] May, Back pain M54.9 [facility] [address] [address] May, Diabetes E11.9 ; Anxiety F41.9 ; Port ca theter in place Z95.828 ; Encounter for immunization Z23 and Insulin long-term use Z79.4 [facility] [address] [address] Apr, Back pain M54.9 [facility] [address] [address] Apr, Back pain M54.9 [facility] [address] [address] Apr, [facility] [address] [address] Apr, Back pain M54.9 [facility] [address] [address] Mar, COPD (chronic obstructive pulmonary dise ase) J44.9 [facility] [address] [address] Feb, [facility] [address] [address] Jan, [facility] [address] [address] Jan, [facility] [address] [address] Jan, [facility] [address] [address] Jan, [facility] [address] [address] Dec, Diabetes E11.9 ; Hypoxia R09.02 and Back pain M54.9 [facility] [address] [address] Dec, [facility] [address] [address] Nov, [place] [address] [address] Oct, Anxiety F41.9 [facility] [address] [address] Oct, Back pain M54.9 [facility] [address] [address] September, Back pain M54.9 [facility] [address] [address] September, Diabetes E11.9 [facility] [address] [address] September, [facility] [address] [address] September, Diabetes E11.9 ; Insulin long-term use Z 79.4 and Back pain M54.9 [facility] [address] [address] Aug, Back pain M54.9 [facility] [address] [address] Aug, Back pain M54.9 ; Anxiety F41.9 and Arth ropathy, unspecified M12.9 [facility] [address] [address] Jul, Back pain M54.9 [facility] [address] [address] Jul, Anxiety F41.9 [facility] [address] [address] Jul, Back pain M54.9 [facility] [address] [address] Jul, [facility] [address] [address] Jul, [facility] [address] [address] May, Back pain M54.9 ; Diabetes E11.9 ; Insul in long-term use Z79.4 ; COPD (chronic obstructive pulmonary disease) J44.9 and Hypertension I10 [place] [address] [address] May, Chronic pain G89.29 [place] [address] [address] Apr, [place] [address] [address] Apr, [place] [address] [address] Mar, [place] [address] [address] Mar, Encounter for immunization Z23 and Diabe boris E11.9 [place] [address] [address] Feb, [place] [address] [address] Feb, [place] [address] [address] Jan, [place] [address] [address] Jan, [place] [address] [address] Dec, [facility] [address] [address] Dec, [facility] [address] [address] Dec, Unspecified arthropathy, site unspecifie d 716.90 and Diabetes mellitus type 2, uncontrolled 250.02 [place] [address] [address] Dec, [facility] [address] [address] 06 Nov, 2014 [facility] [address] [facility] [id number] [place] [address] Oct, [facility] [address] [facility] [id number] [facility] [place] [address] September, [facility] [address] [facility] [id number] [facility] [place] [address] September, [facility] [address] [facility] [id number] [facility] [place] [address] September, [facility] [address] [facility] [id number] [facility] [address] September, [facility] [address] [facility] [id number] [place] [address] 14 Aug, 2014 [facility] [address] [id number] [place] [address] Aug, [facility] [address] [id number] [place] [address] 18 Jul, 2014 [facility] [address] [facility] [id number] [place] [address] 18 Jul, 2014 [facility] [address] [id number] [place] [address] 16 Jul, 2014 [facility] [address] [id number] [place] [address] 16 Jul, 2014 [facility] [address] [id number] [place] [address] 16 Jul, 2014 [facility] [address] [facility] [id number] [place] [address] 16 Jul, 2014 [facility] [address] [facility] [id number] [place] [address] 16 Jul, 2014 [facility] [address] [id number] [place] [address] 16 Jul, 2014 [facility] [address] [id number] [place] [address] 16 Jul, 2014 [facility] [address] [id number] [place] [address] 13 Jul, 2014 [facility] [address] [facility] [id number] [place] [address] Jul, 2014 [facility] [address] [id number] [place] [address] Jul, 2014 [facility] [address] [id number] [place] [address] Jul, 2014 [facility] [address] [id number] [place] [address] Jul, 2014 [facility] [address] [id number] [place] [address] 17 Jul, 2014 [facility] [address] [id number] [place] [address] 16 Jul, 2014 [facility] [address] [id number] [place] [address] 16 Jul, 2014 [facility] [address] [id number] [place] [address] 16 Jul, 2014 [facility] [address] [id number] [place] [address] 16 Jul, 2014 [facility] [address] [id number] [place] [address] 16 Jul, 2014 [facility] [address] [id number] [place] [address] 16 Jul, 2014 [facility] [address] [id number] [place] [address] 16 Jul, 2014 [facility] [address] [id number] [place] [address] 16 Jul, 2014 [facility] [address] [id number] [place] [address] 16 Jul, 2014 [facility] [address] [id number] [place] [address] 16 Jul, 2014 [facility] [address] [id number] [place] [address] Jul, 2014 [facility] [address] [id number] [place] [address] Jul, [facility] [address] [id number] [place] [address] Jul, [facility] [address] [id number] [place] [address] Jul, [facility] [address] [id number] [place] [address] May, [facility] [address] [id number] [place] [address] May, [facility] [address] [id number] [place] [address] May, [facility] [address] [id number] [place] [address] May, [facility] [address] [id number] [place] [address] May, [facility] [address] [id number] [place] [address] May, [facility] [address] [id number] [place] [address] May, [facility] [address] [id number] [place] [address] May, [facility] [address] [id number] [place] [address] May, [facility] [address] [id number] [place] [address] May, [facility] [address] [id number] [place] [address] Apr, [facility] [address] [id number] [place] [address] Apr, [facility] [address] [id number] [place] [address] Apr, [facility] [address] [id number] [place] [address] 15 Apr, 2014 [facility] [address] [id number] [place] [address] Apr, [facility] [address] [id number] [place] [address] Apr, [facility] [address] [id number] [place] [address] Mar, [facility] [address] [facility] [id number] [place] [address] Mar, [facility] [address] [id number] [place] [address] Mar, [facility] [address] [id number] [place] [address] Mar, [facility] [address] [id number] [place] [address] Mar, [facility] [address] [id number] [place] [address] Mar, [facility] [address] [id number] [place] [address] Mar, [facility] [address] [id number] [place] [address] Mar, [facility] [address] [id number] [place] [address] Mar, [facility] [address] [id number] [place] [address] Mar, [facility] [address] [id number] [place] [address] Mar, [facility] [id number] [place] [address] Feb, [facility] [address] [id number] [place] [address] Feb, [facility] [address] [id number] [place] [address] Feb, [facility] [address] [facility] [id number] [place] [address] 15 Feb, 2014 [facility] [address] [facility] [id number] [place] [address] Feb, [facility] [address] [id number] [place] [address] Feb, [facility] [address] [id number] [place] [address] Feb, [facility] [address] [facility] [id number] [place] [address] Feb, [facility] [address] [id number] [place] [address] Feb, [facility] [address] [id number] [place] [address] Feb, [facility] [address] [id number] [place] [address] Jan, 2013 [facility] [address] [id number] [place] [address] 22 Jan, 2013 [facility] [address] [id number] [place] [address] 16 Jan, 2013 [facility] [address] [id number] [place] [address] 16 Jan, 2013 [facility] [address] [id number] [place] [address] 12 Jan, 2013 [facility] [address] [id number] [place] [address] Jan, 2013 [facility] [address] [id number] [place] [address] Jan, 2013 [facility] [address] [id number] [place] [address] Dec, [facility] [address] [id number] [place] [address] Dec, [facility] [address] [id number] [facility] [address] Dec, [facility] [address] [id number] [facility] [address] Dec, [facility] [address] [facility] [id number] [facility] [address] Dec, [facility] [address] [id number] [facility] [address] Dec, [facility] [address] [facility] [id number] [facility] [address] Dec, [facility] [address] [facility] [id number] [facility] [address] Dec, [facility] [address] [id number] [place] [address] Oct, [facility] [address] [id number] [place] [address] Oct, [facility] [address] [id number] [place] [address] September, [facility] [address] [facility] [id number] [facility] [address] September, [facility] [address] [id number] [place] [address] September, [facility] [address] [id number] [place] [address] September, [facility] [address] [id number] [place] [address] September, [facility] [address] [facility] [id number] [place] [address] September, [facility] [address] [id number] [place] [address] September, [facility] [address] [id number] [place] [address] Aug, [facility] [address] [id number] [place] [address] Aug, [facility] [address] [id number] [place] [address] Jul, [facility] [address] [id number] [place] [address] Jul, [facility] [address] [id number] [place] [address] Jul, [facility] [address] [id number] [place] [address] Jul, [facility] [address] [id number] [place] [address] Jul, [facility] [address] [id number] [place] [address] Jul, [facility] [address] [id number] [place] [address] Jul, [facility] [id number] [place] [address] Jul, [facility] [address] [id number] [place] [address] May, [facility] [id number] [place] [address] May, [facility] [address] [id number] [place] [address] May, [facility] [id number] [place] [address] May, [facility] [address] [id number] [place] [address] Apr, [facility] [address] [id number] [place] [address] Mar, [facility] [id number] [place] [address] Mar, [facility] [address] [id number] [place] [address] Mar, [facility] [address] [id number] [place] [address] Mar, [facility] [address] [id number] [place] [address] Mar, [facility] [address] [id number] [place] [address] Mar, [facility] [address] [id number] [place] [address] Mar, [facility] [address] [id number] [place] [address] Mar, [facility] [address] [id number] [place] [address] Mar, [facility] [address] [id number] [place] [address] Mar, [facility] [address] [id number] [place] [address] Mar, [facility] [address] [id number] [place] [address] Mar, [facility] [address] [id number] [place] [address] Feb, [facility] [address] [id number] [place] [address] Feb, [facility] [address] [id number] [place] [address] Feb, [facility] [address] [id number] [place] [address] Feb, [facility] [address] [id number] [place] [address] Feb, [facility] [address] [id number] [place] [address] Jan, [facility] [address] [id number] [place] [address] Dec, [facility] [address] [id number] [place] [address] Dec, [facility] [address] [facility] [id number] [facility] [address] Dec, [facility] [address] [facility] [id number] [place] [address] Nov, [facility] [address] [id number] [place] [address] Nov, [facility] [address] [id number] [place] [address] Nov, [facility] [address] [id number] [place] [address] Oct, [facility] [address] [id number] [place] [address] Oct, [facility] [address] [id number] [place] [address] Oct, [facility] [address] [id number] [place] [address] September, [facility] [address] [id number] [place] [address] September, [facility] [address] [id number] [place] [address] September, [facility] [address] [id number] [place] [address] September, [facility] [address] [id number] [place] [address] September, [facility] [address] [id number] [place] [address] Aug, [facility] [address] [id number] [place] [address] Aug, [facility] [address] [id number] [place] [address] Aug, [facility] [address] [id number] [place] [address] Jul, [facility] [address] [id number] [place] [address] Jul, [facility] [address] [id number] [place] [address] Jul, [facility] [address] [id number] [place] [address] Jul, [facility] [address] [id number] [place] [address] Jul, [facility] [address] [id number] [place] [address] Jul, [facility] [address] [id number] [place] [address] Jul, [facility] [id number] [place] [address] May, [facility] [address] [id number] [place] [address] May, [facility] [id number] [place] [address] May, [facility] [address] [id number] [place] [address] Apr, [facility] [id number] [place] [address] Apr, [facility] [address] [id number] [place] [address] Apr, [facility] [id number] [place] [address] Apr, [facility] [address] [id number] [place] [address] Apr, [facility] [address] [id number] [place] [address] Mar, [facility] [address] [id number] [place] [address] 29 Mar, 2012 [facility] [id number] [place] [address] 15 Mar, 2012 [facility] [address] [id number] [place] [address] Mar, [facility] [address] [facility] [id number] [place] [address] Feb, [facility] [address] [id number] [place] [address] Feb, [facility] [address] [id number] [place] [address] Feb, [facility] [address] [id number] [place] [address] Feb, [facility] [address] [id number] [place] [address] Feb, [facility] [address] [id number] [place] [address] Jan, [facility] [address] [id number] [place] [address] Dec, [facility] [address] [id number] [place] [address] Dec, [facility] [address] [id number] [place] [address] Dec, [facility] [address] [id number] [place] [address] Nov, [facility] [address] [id number] [place] [address] Nov, [facility] [address] [id number] [place] [address] Nov, [facility] [address] [id number] [place] [address] Oct, [facility] [address] [id number] [place] [address] Oct, [facility] [address] [id number] [place] [address] Oct, [facility] [address] [id number] [place] [address] Oct, [facility] [address] [id number] [place] [address] September, [facility] [address] [id number] [place] [address] September, [facility] [address] [id number] [place] [address] Aug, [facility] [address] [id number] [place] [address] Aug, [facility] [address] [id number] [place] [address] Aug, [facility] [address] [id number] [place] [address] Aug, [facility] [address] [id number] [place] [address] Aug, [facility] [address] [id number] [place] [address] Aug, [facility] [address] [id number] [place] [address] Aug, [facility] [address] [id number] [place] [address] Jul, [facility] [address] [id number] [place] [address] Jul, [facility] [address] [id number] [place] [address] Jul, [facility] [address] [id number] [place] [address] May, [facility] [address] [id number] [place] [address] May, [facility] [address] [id number] [place] [address] May, [facility] [address] [id number] [place] [address] Apr, [facility] [address] [id number] [place] [address] Apr, [facility] [address] [id number] [place] [address] Mar, [facility] [address] [id number] [place] [address] Mar, [facility] [address] [id number] [place] [address] Mar, [facility] [id number] [place] [address] Mar, [facility] [address] [id number] [place] [address] Mar, [facility] [address] [id number] [place] [address] Mar, [facility] [address] [id number] [place] [address] Feb, [facility] [address] [id number] [place] [address] Feb, [facility] [address] [id number] [place] [address] Feb, IMMUNIZATIONS No Known Immunizations SOCIAL HISTORY [...] foot infections x 3 2016 Hospitalization History [facility] - right big t oe removed 2018
--- OUTSIDE RECORDS SUMMARY | 2020-01-03 07:36 | XMS REPORT ---
Author Author Tra SILVERIO Organization [facility] Address [address] [place] [address] Care Team Providers [employer] F[employer] Name Role Phone FERNY SILVERIO Unavailable PROBLEMS Type Condition ICD9-CM Code LXV10-XU Code Onset Dates Condition S tatus SNOMED Code Problem Hypertension I10 Active 0505458 3 Problem Hypoxia R09.02 Active 267331184 Problem COPD (chronic obstructive pulmonary disease) J44.9 Active 49165961 Problem Lumbar radiculopathy, chronic M54.16 Active 766100336 Problem 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 Active 221720785 Problem Recurrent major depressive disorder, in full remission F33.42 Active 248941394 Problem Hyperlipidemia, unspecified E78.5 Ac tive 04927580 Problem PAD (peripheral artery disease) I73.9 Active 665828069 Problem Type 2 diabetes mellitus with other specified complication E11.69 Active 159165285191 Problem Anxiety F41.9 Active 38045947 Problem Type 2 diabetes mellitus wit h diabetic peripheral angiopathy without gangrene E11.51 Active 738374784 Problem ED (erectile dysfunction) of organic origin N52.9 Active 839939742 Problem Arthritis M19.90 Active 9642141 Problem Morbid (severe) obesity due to excess calories E66 .01 Active 326535625 ALLERGIES No Information ENCOUNTERS Encounter Location Date Diagnosis [facility] [id number] [place] [address] 09 Aug, 2019 [facility] [address] [address] Jul, Back pain M54.9 [facility] [address] [address] Jul, Back pain M54.9 [facility] [address] [address] Jul, Lumbar radiculopathy, chronic M54.16 [facility] [address] [address] Jul, Back pain M54.9 [facility] [address] [address] 07 Jul, 2019 Encounter for Medicare annual [...] diabetes mellitus with other specified complication E11.69 [place] [address] [address] Jul, Back pain M54.9 [place] [address] [address] Jul, Anxiety F41.9 [place] [address] [address] May, [place] [address] [address] May, Lumbar radiculopathy, chronic M54.16 [place] [address] [address] May, Back pain M54.9 [facility] [address] [address] May, [place] [address] [address] May, Back pain M54.9 and Anxiety F41.9 [facility] [address] [address] May, [place] [address] [address] May, Type 2 diabetes mellitus with diabetic p eripheral angiopathy without gangrene E11.51 ; Arthritis M19.90 ; ED (erectile dysfunction) of organic origin N52.9 ; Morbid (severe) obesity due to excess calories E66.01 and Lumbar radiculopathy, chronic M54.16 [place] [address] [address] 02 May, 2019 Diabetes E11.9 [place] [address] [address] Apr, [place] [address] [address] Apr, Back pain M54.9 [place] [address] [address] Apr, [place] [address] [address] Apr, Anxiety F41.9 [place] [address] [address] 10 Apr, 2019 Back pain M54.9 and Lumbar radiculopathy , chronic M54.16 [place] [address] [address] 05 Apr, 2019 Back pain M54.9 ; Anxiety F41.9 and Lumb ar radiculopathy, chronic M54.16 [place] [address] [address] Mar, [place] [address] [address] Mar, [place] [address] [address] Mar, Back pain M54.9 [place] [address] [address] Mar, [place] [address] [address] 17 Oct, 2019 Type 2 diabetes mellitus with diabetic p eripheral angiopathy without gangrene E11.51 ; Lumbar radiculopathy, chronic M54.16 ; ED (erectile dysfunction) of organic origin N52.9 ; Encounter for immunization Z23 ; COPD (chronic obstructive pulmonary disease) J44.9 and Anxiety F41.9 [facility] [address] [address] Feb, Back pain M54.9 [facility] [address] [address] Feb, [facility] [address] [address] Feb, [facility] [address] [address] Feb, [facility] [address] [address] Feb, Back pain M54.9 [facility] [address] [address] Feb, [facility] [address] [address] Jan, Anxiety F41.9 [facility] [address] [address] Jan, Anxiety F41.9 [facility] [address] [address] Jan, [facility] [address] [address] Jan, [facility] [address] [address] Jan, Back pain M54.9 [facility] [address] [address] Jan, [facility] [address] [address] Dec, Acute non-recurrent frontal sinusitis J0 1.10 [facility] [address] [address] Dec, Acute non-recurrent frontal sinusitis J0 1.10 [facility] [address] [address] Dec, Type 2 diabetes mellitus with diabetic p eripheral angiopathy without gangrene E11.51 ; Lumbar radiculopathy, chronic M54.16 ; Recurrent major depressive disorder, in full remission F33.42 and Anxiety F41.9 [facility] [address] [address] Dec, [facility] [address] [address] Nov, Anxiety F41.9 [facility] [address] [address] Nov, [facility] [address] [address] Nov, Back pain M54.9 [facility] [address] [address] Nov, [facility] [address] [address] Nov, Back pain M54.9 [facility] [address] [address] Nov, Anxiety F41.9 [facility] [address] [address] Nov, [facility] [address] [address] Oct, Back pain M54.9 [facility] [address] [address] Oct, [facility] [address] [address] Oct, [facility] [address] [address] Oct, [facility] [address] [address] September, Back pain M54.9 [facility] [address] [address] September, [facility] [address] [address] September, [facility] [address] [address] September, [facility] [address] [address] Aug, Back pain M54.9 [place] [address] [address] Aug, Anxiety F41.9 [place] [address] [address] Aug, [facility] [address] [address] Aug, Pressure ulcer of other site, stage 3 L8 9.893 and COPD (chronic obstructive pulmonary disease) J44.9 [place] [address] [address] Aug, History of smoking Z87.891 [place] [address] [address] Jul, Type 2 diabetes mellitus with diabetic p eripheral angiopathy without gangrene E11.51 [facility] [address] [address] Jul, Back pain M54.9 [facility] [address] [address] Jul, Anxiety F41.9 [facility] [address] [address] Jul, [facility] [address] [address] 13 Jul, 2018 Back pain M54.9 [place] [address] [address] 12 Jul, 2018 Back pain M54.9 [facility] [address] [address] Jul, Lumbar radiculopathy, chronic M54.16 ; H ypertension I10 and Type 2 diabetes mellitus with diabetic peripheral angiopathy without gangrene E11.51 [place] [address] [address] Jul, Back pain M54.9 [place] [address] [address] Jul, Back pain M54.9 and Anxiety F41.9 [place] [address] [address] Jul, [place] [address] [address] May, Back pain M54.9 and Anxiety F41.9 [place] [address] [address] May, [place] [address] [address] Apr, Radiculopathy of lumbar region M54.16 ; Back pain M54.9 and Anxiety F41.9 [place] [address] [address] Apr, Diabetes E11.9 ; Muscle spasm M62.838 an d Lumbar radiculopathy, chronic M54.16 [place] [address] [address] Apr, [place] [address] [address] Apr, [place] [address] [address] Mar, Back pain M54.9 and Anxiety F41.9 [facility] [address] [address] Mar, [facility] [address] [address] Mar, [facility] [address] [address] Mar, [place] [address] [address] Mar, Encounter for immunization Z23 [place] [address] [address] Feb, Back pain M54.9 and Anxiety F41.9 [place] [address] [address] Feb, Back pain M54.9 and Anxiety F41.9 [place] [address] [address] Jan, Back pain M54.9 and Anxiety F41.9 [place] [address] [address] Jan, [place] [address] [address] Dec, [place] [address] [address] Dec, Back pain M54.9 and Anxiety F41.9 [place] [address] [address] Dec, Diabetes E11.9 ; Type 2 diabetes mellitu s with diabetic peripheral angiopathy without gangrene E11.51 ; Lumbar radiculopathy, chronic M54.16 ; COPD (chronic obstructive pulmonary disease) J44.9 and Anxiety F41.9 [place] [address] [address] Dec, Back pain M54.9 and Anxiety F41.9 [place] [address] [address] Nov, Back pain M54.9 and Anxiety F41.9 [place] [address] [address] Oct, [place] [address] [address] Oct, Back pain M54.9 and Anxiety F41.9 [place] [address] [address] September, Anxiety F41.9 and Back pain M54.9 [place] [address] [address] September, Diabetes E11.9 ; Hypertension I10 ; COPD (chronic obstructive pulmonary disease) J44.9 and Lumbar radiculopathy, chronic M54.16 [place] [address] [address] September, Anxiety F41.9 [place] [address] [address] Aug, [place] [address] [address] Aug, [place] [address] [address] Aug, Anxiety F41.9 and Back pain M54.9 [place] [address] [address] Aug, Medicare annual wellness visit, initial Z00.00 [...] and 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 [place] [address] [address] Jul, Back pain M54.9 [facility] [address] [address] Jul, [facility] [address] [address] Jul, Anxiety F41.9 and Back pain M54.9 [facility] [address] [address] Jul, Diabetes E11.9 [facility] [address] [address] May, [facility] [address] [address] May, Diabetes E11.9 ; Anxiety F41.9 ; Back pa in M54.9 and COPD (chronic obstructive pulmonary disease) J44.9 [facility] [address] [address] May, Back pain M54.9 [facility] [address] [address] May, [facility] [address] [address] Apr, Back pain M54.9 [facility] [address] [address] Mar, Back pain M54.9 [facility] [address] [address] Mar, [facility] [address] [address] 16 Mar, 2017 [facility] [address] [address] 14 Mar, 2017 Radiculopathy of lumbar region M54.16 [facility] [address] [address] 13 Mar, 2017 [facility] [address] [address] 07 Mar, 2017 Encounter for immunization Z23 and Lumba r radiculopathy, chronic M54.16 [place] [address] [address] Mar, Back pain M54.9 and Anxiety F41.9 [facility] [address] [facility] [id number] [place] [address] Feb, Acute bilateral low back boy n with left-sided sciatica M54.42 and Acute bilateral low back pain with right-sided sciatica M54.41 [place] [address] [address] Feb, [place] [address] [address] Feb, Back pain M54.9 [place] [address] 05 Jan, 2017 Back pain M54.9 and Anxiety F41.9 [place] [place] [address] 05 Jan, 2017 Diabetes E11.9 [place] [address] [address] Dec, Diabetes E11.9 ; Back pain M54.9 ; Anxie ty F41.9 and Insulin long-term use Z79.4 [place] [address] [address] Dec, Anxiety F41.9 [place] [address] Dec, Back pain M54.9 [place] [address] [address] Nov, Back pain M54.9 [place] [address] Oct, Back pain M54.9 and Anxiety F41.9 [facility] [address] [address] September, Back pain M54.9 [facility] [address] [address] September, Back pain M54.9 and Anxiety F41.9 [facility] [address] [address] Aug, Diabetes E11.9 ; Anxiety F41.9 ; Back pa in M54.9 and PAD (peripheral artery disease) I73.9 [facility] [address] [address] Aug, Anxiety F41.9 [place] [address] Aug, Back pain M54.9 [facility] [address] [address] Jul, Back pain M54.9 [facility] [address] [address] Jul, Back pain M54.9 [facility] [address] [address] 23 Jul, 2016 Back pain M54.9 [address] [address] [address] 16 Jul, 2016 Dorsalgia M54.9 [facility] [address] [address] 14 Jul, 2016 [facility] [address] [address] May, Back pain M54.9 [facility] [address] [address] May, Diabetes E11.9 ; Anxiety F41.9 ; Port ca theter in place Z95.828 ; Encounter for immunization Z23 and Insulin long-term use Z79.4 [place] [address] Apr, Back pain M54.9 [facility] [address] [address] Apr, Back pain M54.9 [facility] [address] [address] Apr, [facility] [address] [address] Apr, Back pain M54.9 [facility] [address] [address] Mar, COPD (chronic obstructive pulmonary dise ase) J44.9 [facility] [address] [address] Feb, [facility] [address] [address] Jan, [facility] [address] [address] Jan, [facility] [address] [address] Jan, [facility] [address] [address] Jan, [facility] [address] [address] Dec, Diabetes E11.9 ; Hypoxia R09.02 and Back pain M54.9 [facility] [address] [address] Dec, [facility] [address] [address] Nov, [facility] [address] [address] Oct, Anxiety F41.9 [facility] [address] [address] Oct, Back pain M54.9 [address] [address] September, Back pain M54.9 [address] [address] [address] September, Diabetes E11.9 [place] [address] [address] September, [place] [address] [address] September, Diabetes E11.9 ; Insulin long-term use Z 79.4 and Back pain M54.9 [address] [address] Aug, Back pain M54.9 [place] [address] [address] Aug, Back pain M54.9 ; Anxiety F41.9 and Arth ropathy, unspecified M12.9 [address] [address] [address] Jul, Back pain M54.9 [place] [address] [address] Jul, Anxiety F41.9 [place] [address] [address] Jul, Back pain M54.9 [place] [address] [address] Jul, [place] [address] [address] Jul, [place] [address] [address] May, Back pain M54.9 ; Diabetes E11.9 ; Insul in long-term use Z79.4 ; COPD (chronic obstructive pulmonary disease) J44.9 and Hypertension I10 [place] [address] [address] May, Chronic pain G89.29 [facility] [address] [address] Apr, [facility] [address] [address] Apr, [facility] [address] [address] Mar, [facility] [address] [address] Mar, Encounter for immunization Z23 and Diabe boris E11.9 [facility] [address] [address] Feb, [facility] [address] [address] Feb, [facility] [address] [address] Jan, [facility] [address] [address] Jan, [facility] [address] [address] Dec, [facility] [address] [address] Dec, [facility] [address] [address] Dec, Unspecified arthropathy, site unspecifie d 716.90 and Diabetes mellitus type 2, uncontrolled 250.02 [facility] [address] [address] Dec, [facility] [address] [address] Nov, [facility] [address] [address] Oct, [facility] [address] [address] September, [facility] [address] [facility] [id number] [place] [address] September, [facility] [address] [id number] [place] [address] September, [facility] [address] [id number] [place] [address] September, [facility] [address] [id number] [place] [address] 14 Aug, 2014 [facility] [address] [id number] [place] [address] 13 Aug, 2014 [facility] [address] [id number] [place] [address] 18 Jul, 2014 [facility] [address] [id number] [place] [address] 18 Jul, 2014 [facility] [address] [id number] [place] [address] 16 Jul, 2014 [facility] [address] [id number] [place] [address] 16 Jul, 2014 [facility] [address] [id number] [place] [address] 16 Jul, 2014 [facility] [address] [id number] [place] [address] 16 Jul, 2014 [facility] [address] [id number] [place] [address] 16 Jul, 2014 [facility] [address] [id number] [place] [address] 16 Jul, 2014 [facility] [address] [facility] [id number] [place] [address] 16 Jul, 2014 [facility] [address] [id number] [place] [address] 13 Jul, 2014 [facility] [address] [id number] [place] [address] 13 Jul, 2014 [facility] [address] [id number] [place] [address] 09 Jul, 2014 [facility] [address] [facility] [id number] [place] [address] Jul, 2014 [facility] [address] [facility] [id number] [place] [address] 17 Jul, 2014 [facility] [address] [id number] [place] [address] 17 Jul, 2014 [facility] [address] [id number] [place] [address] 16 Jul, 2014 [facility] [address] [facility] [id number] [place] [address] 16 Jul, 2014 [facility] [address] [id number] [place] [address] 16 Jul, 2014 [facility] [address] [id number] [place] [address] 16 Jul, 2014 [facility] [address] [id number] [place] [address] 16 Jul, 2014 [facility] [address] [id number] [place] [address] 16 Jul, 2014 [facility] [address] [id number] [place] [address] 16 Jul, 2014 [facility] [address] [id number] [place] [address] 16 Jul, 2014 [facility] [address] [id number] [place] [address] 16 Jul, 2014 [facility] [address] [facility] [id number] [place] [address] 16 Jul, 2014 [facility] [address] [id number] [place] [address] 16 Jul, 2014 [facility] [address] [id number] [place] [address] 16 Jul, 2014 [facility] [address] [id number] [place] [address] Jul, [facility] [address] [id number] [place] [address] Jul, [facility] [address] [id number] [place] [address] May, [facility] [address] [id number] [place] [address] May, [facility] [address] [id number] [place] [address] May, [facility] [address] [facility] [id number] [place] [address] May, [facility] [address] [id number] [place] [address] May, [facility] [address] [id number] [place] [address] May, [facility] [address] [id number] [place] [address] May, [facility] [address] [id number] [place] [address] May, [facility] [address] [id number] [place] [address] May, [facility] [address] [id number] [place] [address] May, [facility] [address] [id number] [place] [address] Apr, [facility] [address] [id number] [place] [address] Apr, [facility] [address] [id number] [place] [address] Apr, [facility] [address] [id number] [place] [address] Apr, [facility] [address] [id number] [place] [address] Apr, [facility] [address] [id number] [place] [address] Apr, [facility] [address] [id number] [place] [address] Mar, [facility] [address] [id number] [place] [address] Mar, [facility] [address] [id number] [place] [address] Mar, [facility] [address] [id number] [place] [address] Mar, [facility] [address] [id number] [place] [address] Mar, [facility] [address] [id number] [place] [address] Mar, [facility] [address] [id number] [place] [address] Mar, [facility] [address] [id number] [place] [address] Mar, [facility] [address] [id number] [place] [address] Mar, [facility] [address] [id number] [place] [address] Mar, [facility] [address] [id number] [place] [address] Mar, [facility] [address] [id number] [place] [address] Feb, [facility] [address] [id number] [place] [address] 30 Feb, 2014 [facility] [id number] [place] [address] Feb, [facility] [address] [id number] [place] [address] Feb, [facility] [address] [id number] [place] [address] Feb, [facility] [address] [facility] [id number] [place] [address] Feb, [facility] [address] [facility] [id number] [place] [address] Feb, [facility] [address] [id number] [place] [address] Feb, [facility] [facility] [address] [id number] [place] [address] Feb, [facility] [address] [facility] [id number] [place] [address] Feb, [facility] [address] [facility] [id number] [place] [address] Jan, [facility] [address] [id number] [place] [address] Jan, [facility] [place] [facility] [address] [id number] [place] [address] 16 Jan, 2014 [facility] [address] [id number] [place] [address] 16 Jan, 2014 [facility] [address] [id number] [place] [address] Jan, [facility] [address] [id number] [place] [address] Jan, [facility] [address] [id number] [place] [address] Jan, [facility] [address] [id number] [place] [address] Dec, [facility] [address] [facility] [id number] [place] [address] Dec, [facility] [address] [id number] [place] [address] Dec, [facility] [address] [id number] [place] [address] Dec, [facility] [address] [id number] [place] [address] Dec, [facility] [address] [id number] [place] [address] Dec, [facility] [address] [id number] [facility] [place] [address] Dec, [facility] [address] [facility] [id number] [place] [address] Dec, [facility] [address] [id number] [facility] [place] [address] Oct, [facility] [address] [facility] [id number] [facility] [place] [address] Oct, [facility] [address] [id number] [place] [address] September, [facility] [address] [id number] [place] [address] September, [facility] [address] [id number] [place] [address] September, [facility] [address] [id number] [place] [address] September, [facility] [address] [id number] [place] [address] September, [facility] [address] [id number] [place] [address] September, [facility] [address] [id number] [place] [address] September, [facility] [address] [id number] [place] [address] Aug, [facility] [address] [id number] [place] [address] Aug, [facility] [address] [id number] [place] [address] Jul, [facility] [address] [id number] [place] [address] Jul, [facility] [address] [id number] [facility] [place] [address] 17 Jul, 2013 [facility] [address] [id number] [place] [address] 17 Jul, 2013 [facility] [address] [id number] [place] [address] 14 Jul, 2013 [facility] [address] [id number] [place] [address] 14 Jul, 2013 [facility] [address] [id number] [place] [address] Jul, [facility] [address] [id number] [place] [address] Jul, [facility] [address] [id number] [place] [address] 15 May, 2013 [facility] [address] [id number] [place] [address] 15 May, 2013 [facility] [address] [id number] [place] [address] May, [facility] [address] [id number] [place] [address] May, [facility] [address] [id number] [place] [address] Apr, [facility] [address] [id number] [place] [address] Mar, [facility] [address] [id number] [place] [address] Mar, [facility] [address] [id number] [place] [address] Mar, [facility] [id number] [place] [address] Mar, [facility] [address] [id number] [place] [address] Mar, [facility] [id number] [place] [address] Mar, [facility] [address] [id number] [place] [address] Mar, [facility] [address] [id number] [place] [address] Mar, [facility] [address] [id number] [place] [address] Mar, [facility] [address] [id number] [place] [address] Mar, [facility] [address] [id number] [place] [address] Mar, [facility] [address] [id number] [place] [address] Mar, [facility] [address] [id number] [place] [address] Feb, [facility] [address] [id number] [place] [address] Feb, [facility] [address] [id number] [place] [address] Feb, [facility] [address] [id number] [place] [address] Feb, [facility] [address] [id number] [place] [address] Feb, [facility] [address] [id number] [place] [address] Jan, [facility] [address] [id number] [place] [address] Dec, [facility] [address] [id number] [place] [address] Dec, [facility] [address] [id number] [place] [address] Dec, [facility] [address] [id number] [place] [address] Nov, [facility] [address] [id number] [place] [address] Nov, [facility] [address] [facility] [id number] [facility] [place] [address] Nov, [facility] [address] [facility] [id number] [facility] [place] [address] Oct, [facility] [address] [id number] [facility] [place] [address] Oct, [facility] [address] [id number] [place] [address] Oct, [facility] [address] [facility] [id number] [place] [address] September, [facility] [address] [id number] [facility] [place] [address] September, [facility] [address] [id number] [facility] [place] [address] September, [facility] [address] [id number] [place] [address] September, [facility] [address] [facility] [id number] [facility] [place] [address] September, [facility] [address] [id number] [place] [address] Aug, [facility] [address] [id number] [place] [address] Aug, [facility] [address] [id number] [facility] [place] [address] Aug, [facility] [address] [facility] [id number] [facility] [place] [address] Jul, [facility] [address] [id number] [facility] [place] [address] Jul, [facility] [address] [id number] [facility] [place] [address] Jul, [facility] [address] [id number] [facility] [place] [address] Jul, [facility] [address] [id number] [place] [address] Jul, [facility] [address] [id number] [place] [address] Jul, [facility] [address] [id number] [place] [address] Jul, [facility] [address] [id number] [place] [address] May, [facility] [address] [id number] [place] [address] May, [facility] [address] [id number] [place] [address] May, [facility] [address] [id number] [place] [address] Apr, [facility] [id number] [place] [address] Apr, [facility] [id number] [place] [address] Apr, [facility] [address] [id number] [place] [address] Apr, [facility] [id number] [place] [address] Apr, [facility] [address] [id number] [place] [address] Mar, [facility] [address] [id number] [place] [address] Mar, [facility] [address] [id number] [place] [address] Mar, [facility] [id number] [place] [address] Mar, [facility] [address] [id number] [place] [address] Feb, [facility] [id number] [place] [address] Feb, [facility] [address] [id number] [place] [address] Feb, [facility] [address] [id number] [place] [address] Feb, [facility] [address] [id number] [place] [address] Feb, [facility] [address] [id number] [place] [address] Jan, [facility] [address] [facility] [id number] [place] [address] Dec, [facility] [address] [id number] [place] [address] Dec, [facility] [address] [id number] [place] [address] Dec, [facility] [address] [id number] [place] [address] Nov, [facility] [address] [id number] [place] [address] Nov, [facility] [address] [id number] [place] [address] Nov, [facility] [address] [id number] [place] [address] Oct, [facility] [address] [id number] [place] [address] Oct, [facility] [address] [id number] [place] [address] Oct, [facility] [address] [id number] [place] [address] Oct, [facility] [address] [id number] [place] [address] September, [facility] [address] [id number] [place] [address] September, [facility] [address] [id number] [place] [address] 30 Aug, 2011 [facility] [address] [id number] [place] [address] Aug, [facility] [address] [id number] [place] [address] Aug, [facility] [address] [id number] [place] [address] Aug, [facility] [address] [id number] [place] [address] Aug, [facility] [address] [id number] [place] [address] Aug, [facility] [address] [id number] [place] [address] Aug, [facility] [address] [id number] [place] [address] Jul, [facility] [address] [id number] [place] [address] Jul, [facility] [address] [id number] [place] [address] Jul, [facility] [address] [id number] [place] [address] May, [facility] [address] [id number] [place] [address] May, [facility] [address] [id number] [place] [address] May, [facility] [address] [id number] [place] [address] Apr, [facility] [address] [id number] [place] [address] Apr, [facility] [address] [id number] [place] [address] Mar, [facility] [address] [id number] [place] [address] Mar, [facility] [address] [id number] [place] [address] Mar, [facility] [address] [id number] [place] [address] Mar, [facility] [address] [id number] [place] [address] Mar, [facility] [address] [id number] [place] [address] Mar, [facility] [address] [id number] [place] [address] Feb, [facility] [address] [id number] [place] [address] Feb, [facility] [address] [id number] [place] [address] Feb, IMMUNIZATIONS No Known Immunizations SOCIAL HISTORY [...] foot infections x 3 2016 Hospitalization History [facility] - right big t oe removed 2018
--- OUTSIDE RECORDS SUMMARY | 2020-01-03 07:36 | XMS REPORT ---
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 170505116 Problem Recurrent major depressive disorder, in full remission F33.42 Active 092617682 Problem Hyperlipidemia, unspecified E78.5 Ac tive 85437925 Problem PAD (peripheral artery disease) I73.9 Active 179041399 Problem Type 2 diabetes mellitus with other specified complication E11.69 Active 722473605546 Problem Anxiety F41.9 Active 10990197 Problem Type 2 diabetes mellitus wit h diabetic peripheral angiopathy without gangrene E11.51 Active 890674062 Problem ED (erectile dysfunction) of organic origin N52.9 Active 749759061 Problem Arthritis M19.90 Active 8759014 Problem Morbid (severe) obesity due to excess calories E66 .01 Active 560856906 ALLERGIES No Information ENCOUNTERS Encounter Location Date Diagnosis [facility] [address] [address] 09 Aug, 2019 [facility] [address] [address] 13 Jul, 2019 Anxiety F41.9 [facility] [address] [address] Jul, Anxiety F41.9 [facility] [address] [address] 02 Jul, 2019 Back pain M54.9 [place] [id number] [address] Jul, Back pain M54.9 [place] [address] [address] 28 Jul, 2019 Lumbar radiculopathy, chronic M54.16 [place] [address] [address] Jul, Back pain M54.9 [place] [address] [address] 07 Jul, 2019 Encounter for Medicare annual [...] diabetes mellitus with other specified complication E11.69 [place] [address] [address] Jul, Back pain M54.9 [place] [address] [address] Jul, Anxiety F41.9 [place] [address] [address] May, [place] [address] [address] May, Lumbar radiculopathy, chronic M54.16 [place] [address] [address] May, Back pain M54.9 [place] [address] [address] May, [place] [address] [address] May, Back pain M54.9 and Anxiety F41.9 [facility] [address] [address] May, [facility] [address] [address] May, Type 2 diabetes mellitus with diabetic p eripheral angiopathy without gangrene E11.51 ; Arthritis M19.90 ; ED (erectile dysfunction) of organic origin N52.9 ; Morbid (severe) obesity due to excess calories E66.01 and Lumbar radiculopathy, chronic M54.16 [place] [address] [address] May, Diabetes E11.9 [facility] [address] [address] Apr, [place] [address] [address] Apr, Back pain M54.9 [place] [address] [address] Apr, [facility] [address] [address] Apr, Anxiety F41.9 [place] [address] [address] Apr, Back pain M54.9 and Lumbar radiculopathy , chronic M54.16 [place] [address] [address] Apr, Back pain M54.9 ; Anxiety F41.9 and Lumb ar radiculopathy, chronic M54.16 [place] [address] [address] Mar, [facility] [address] [address] Mar, [facility] [address] [address] Mar, Back pain M54.9 [facility] [address] [address] Mar, [facility] [address] [address] Feb, Type 2 diabetes mellitus with diabetic p eripheral angiopathy without gangrene E11.51 ; Lumbar radiculopathy, chronic M54.16 ; ED (erectile dysfunction) of organic origin N52.9 ; Encounter for immunization Z23 ; COPD (chronic obstructive pulmonary disease) J44.9 and Anxiety F41.9 [facility] [address] [address] Feb, Back pain M54.9 [facility] [address] [address] Feb, [facility] [address] [address] Feb, [facility] [address] [address] Feb, [facility] [address] [address] Feb, Back pain M54.9 [facility] [address] [address] Feb, [facility] [address] [address] Jan, Anxiety F41.9 [facility] [address] [address] Jan, Anxiety F41.9 [facility] [address] [address] Jan, [facility] [address] [address] Jan, [facility] [address] [address] Jan, Back pain M54.9 [facility] [address] [address] Jan, [facility] [address] [address] Dec, Acute non-recurrent frontal sinusitis J0 1.10 [facility] [address] [address] Dec, Acute non-recurrent frontal sinusitis J0 1.10 [facility] [address] [address] Dec, Type 2 diabetes mellitus with diabetic p eripheral angiopathy without gangrene E11.51 ; Lumbar radiculopathy, chronic M54.16 ; Recurrent major depressive disorder, in full remission F33.42 and Anxiety F41.9 [facility] [address] [address] Dec, [facility] [address] [address] Nov, Anxiety F41.9 [facility] [address] [address] Nov, [facility] [address] [address] Nov, Back pain M54.9 [facility] [address] [address] Nov, [facility] [address] [address] Nov, Back pain M54.9 [facility] [address] [address] Nov, Anxiety F41.9 [facility] [address] [address] Nov, [facility] [address] [address] Oct, Back pain M54.9 [facility] [address] [address] Oct, [facility] [address] [address] Oct, [facility] [address] [address] Oct, [facility] [address] [address] September, Back pain M54.9 [facility] [address] [address] September, [facility] [address] [address] September, [facility] [address] [address] September, [facility] [address] [address] Aug, Back pain M54.9 [facility] [address] [address] Aug, Anxiety F41.9 [facility] [address] [address] Aug, [facility] [address] [address] Aug, Pressure ulcer of other site, stage 3 L8 9.893 and COPD (chronic obstructive pulmonary disease) J44.9 [facility] [address] [address] Aug, History of smoking Z87.891 [facility] [address] [address] Jul, Type 2 diabetes mellitus with diabetic p eripheral angiopathy without gangrene E11.51 [facility] [address] [address] Jul, Back pain M54.9 [facility] [address] [address] Jul, Anxiety F41.9 [place] [address] [address] 18 Jul, 2018 [place] [address] [address] 13 Jul, 2018 Back pain M54.9 [place] [address] [address] Jul, Back pain M54.9 [place] [address] [address] Jul, Lumbar radiculopathy, chronic M54.16 ; H ypertension I10 and Type 2 diabetes mellitus with diabetic peripheral angiopathy without gangrene E11.51 [place] [address] [address] Jul, Back pain M54.9 [place] [address] [address] Jul, Back pain M54.9 and Anxiety F41.9 [place] [address] [address] Jul, [place] [address] [address] May, Back pain M54.9 and Anxiety F41.9 [place] [address] [address] May, [place] [address] [address] Apr, Radiculopathy of lumbar region M54.16 ; Back pain M54.9 and Anxiety F41.9 [place] [address] [address] Apr, Diabetes E11.9 ; Muscle spasm M62.838 an d Lumbar radiculopathy, chronic M54.16 [place] [address] [address] Apr, [facility] [address] [address] Apr, [facility] [address] [address] Mar, Back pain M54.9 and Anxiety F41.9 [facility] [address] [address] Mar, [facility] [address] [address] Mar, [facility] [address] [address] Mar, [place] [address] [address] Mar, Encounter for immunization Z23 [place] [address] [address] Feb, Back pain M54.9 and Anxiety F41.9 [place] [address] [address] Feb, Back pain M54.9 and Anxiety F41.9 [place] [address] [address] Jan, Back pain M54.9 and Anxiety F41.9 [place] [address] [address] Jan, [place] [address] [address] Dec, [facility] [address] [address] Dec, Back pain M54.9 and Anxiety F41.9 [facility] [address] [address] Dec, Diabetes E11.9 ; Type 2 diabetes mellitu s with diabetic peripheral angiopathy without gangrene E11.51 ; Lumbar radiculopathy, chronic M54.16 ; COPD (chronic obstructive pulmonary disease) J44.9 and Anxiety F41.9 [place] [address] [address] Dec, Back pain M54.9 and Anxiety F41.9 [place] [address] [address] Nov, Back pain M54.9 and Anxiety F41.9 [place] [address] [address] Oct, [place] [address] [address] Oct, Back pain M54.9 and Anxiety F41.9 [place] [address] [address] September, Anxiety F41.9 and Back pain M54.9 [place] [address] [address] September, Diabetes E11.9 ; Hypertension I10 ; COPD (chronic obstructive pulmonary disease) J44.9 and Lumbar radiculopathy, chronic M54.16 [place] [address] [address] September, Anxiety F41.9 [place] [address] [address] Aug, [place] [address] [address] Aug, [place] [address] [address] Aug, Anxiety F41.9 and Back pain M54.9 [place] [address] [address] Aug, Medicare annual wellness visit, initial Z00.00 ; COPD (chronic obstructive pulmonary disease) J44.9 ; PAD (peripheral artery disease) I73.9 ; Insulin long-term use Z79.4 ; Hypertension I10 ; Anxiety F41.9 ; Recurrent major depressive disorder, in full remission F33.42 ; Pressure ulcer of other site, stage 3 L89.893 ; Type 2 diabetes mellitus with diabetic peripheral angiopathy without gangrene E11.51 and nursing home current use of insulin Z79.4 [facility] [address] [address] Jul, Back pain M54.9 [facility] [address] [address] Jul, [facility] [address] [address] Jul, Anxiety F41.9 and Back pain M54.9 [place] [address] [address] Jul, Diabetes E11.9 [place] [address] [address] May, [place] [address] [address] May, Diabetes E11.9 ; Anxiety F41.9 ; Back pa in M54.9 and COPD (chronic obstructive pulmonary disease) J44.9 [place] [address] [address] May, Back pain M54.9 [facility] [address] [address] May, [facility] [address] [address] Apr, Back pain M54.9 [facility] [address] [address] Mar, Back pain M54.9 [facility] [address] [address] Mar, [facility] [address] [address] Mar, [place] [address] [address] 14 Mar, 2017 Radiculopathy of lumbar region M54.16 [facility] [address] [address] 13 Mar, 2017 [facility] [address] [address] 07 Mar, 2017 Encounter for immunization Z23 and Lumba r radiculopathy, chronic M54.16 [facility] [address] [address] Mar, Back pain M54.9 and Anxiety F41.9 [facility] [address] [facility] [id number] [address] [place] [address] 10 Feb, 2017 Acute bilateral low back boy n with left-sided sciatica M54.42 and Acute bilateral low back pain with right-sided sciatica M54.41 [place] [address] [address] Feb, [place] [address] [address] Feb, Back pain M54.9 [place] [address] [address] 05 Jan, 2017 Back pain M54.9 and Anxiety F41.9 [place] [address] [address] 05 Jan, 2017 Diabetes E11.9 [place] [address] [address] 14 Dec, 2016 Diabetes E11.9 ; Back pain M54.9 ; Anxie ty F41.9 and Insulin long-term use Z79.4 [place] [address] [address] Dec, Anxiety F41.9 [place] [address] [address] Dec, Back pain M54.9 [place] [address] [address] Nov, Back pain M54.9 [facility] [address] [address] Oct, Back pain M54.9 and Anxiety F41.9 [facility] [address] [address] September, Back pain M54.9 [facility] [address] [address] September, Back pain M54.9 and Anxiety F41.9 [facility] [address] [address] Aug, Diabetes E11.9 ; Anxiety F41.9 ; Back pa in M54.9 and PAD (peripheral artery disease) I73.9 [facility] [address] [address] Aug, Anxiety F41.9 [facility] [address] [address] 14 Aug, 2016 Back pain M54.9 [facility] [address] [address] 23 Jul, 2016 Back pain M54.9 [facility] [address] [address] 13 Jul, 2016 Back pain M54.9 [facility] [address] [address] 23 Jul, 2016 Back pain M54.9 [facility] [address] [address] 16 Jul, 2016 Dorsalgia M54.9 [facility] [address] [address] 14 Jul, 2016 [facility] [address] [address] May, Back pain M54.9 [facility] [address] [address] May, Diabetes E11.9 ; Anxiety F41.9 ; Port ca theter in place Z95.828 ; Encounter for immunization Z23 and Insulin long-term use Z79.4 [facility] [address] [address] Apr, Back pain M54.9 [facility] [address] [address] Apr, Back pain M54.9 [facility] [address] [address] Apr, [facility] [address] [address] Apr, Back pain M54.9 [facility] [address] [address] Mar, COPD (chronic obstructive pulmonary dise ase) J44.9 [facility] [address] [address] Feb, [facility] [address] [address] Jan, [facility] [address] [address] Jan, [facility] [address] [address] Jan, [facility] [address] [address] Jan, [facility] [address] [address] Dec, Diabetes E11.9 ; Hypoxia R09.02 and Back pain M54.9 [facility] [address] [address] Dec, [facility] [address] [address] Nov, [facility] [address] [place] [id number] [place] [address] 15 Oct, 2015 Anxiety F41.9 [facility] [address] [address] Oct, Back pain M54.9 [facility] [address] [address] September, Back pain M54.9 [facility] [address] [address] September, Diabetes E11.9 [facility] [address] [address] September, [facility] [address] [address] September, Diabetes E11.9 ; Insulin long-term use Z 79.4 and Back pain M54.9 [facility] [address] [address] Aug, Back pain M54.9 [facility] [address] [address] Aug, Back pain M54.9 ; Anxiety F41.9 and Arth ropathy, unspecified M12.9 [facility] [address] [address] Jul, Back pain M54.9 [facility] [address] [address] Jul, Anxiety F41.9 [facility] [address] [address] Jul, Back pain M54.9 [facility] [address] [address] Jul, [facility] [address] [address] Jul, [facility] [address] [address] May, Back pain M54.9 ; Diabetes E11.9 ; Insul in long-term use Z79.4 ; COPD (chronic obstructive pulmonary disease) J44.9 and Hypertension I10 [facility] [address] [address] May, Chronic pain G89.29 [facility] [address] [address] Apr, [facility] [address] [address] Apr, [facility] [address] [address] Mar, [place] [address] [address] Mar, Encounter for immunization Z23 and Diabe boris E11.9 [place] [address] [address] Feb, [facility] [address] [address] Feb, [facility] [address] [address] Jan, [facility] [address] [address] Jan, [facility] [address] [address] Dec, [facility] [address] [address] Dec, [facility] [address] [address] Dec, Unspecified arthropathy, site unspecifie d 716.90 and Diabetes mellitus type 2, uncontrolled 250.02 [facility] [address] [address] Dec, [facility] [address] [address] Nov, [facility] [place] [facility] [address] [facility] [id number] [place] [address] Oct, [facility] [place] [facility] [address] [facility] [id number] [place] [address] September, [facility] [place] [facility] [address] [id number] [place] [address] September, [facility] [place] [facility] [address] [id number] [place] [address] September, [facility] [place] [facility] [address] [facility] [id number] [place] [address] September, [facility] [place] [facility] [address] [id number] [place] [address] 14 Aug, 2014 [facility] [place] [facility] [address] [id number] [place] [address] Aug, [facility] [place] [facility] [address] [id number] [place] [address] 18 Jul, 2014 [facility] [place] [facility] [address] [id number] [place] [address] 18 Jul, 2014 [facility] [place] [facility] [address] [id number] [place] [address] 16 Jul, 2014 [facility] [place] [facility] [address] [id number] [place] [address] 16 Jul, 2014 [facility] [place] [facility] [address] [id number] [place] [address] 16 Jul, 2014 [facility] [place] [facility] [address] [id number] [place] [address] 16 Jul, 2014 [facility] [place] [facility] [address] [id number] [place] [address] 16 Jul, 2014 [facility] [place] [facility] [address] [id number] [place] [address] 16 Jul, 2014 [facility] [place] [facility] [address] [id number] [place] [address] 16 Jul, 2014 [facility] [place] [facility] [address] [id number] [place] [address] 13 Jul, 2014 [facility] [place] [facility] [address] [facility] [id number] [place] [address] Jul, 2014 [facility] [place] [facility] [address] [facility] [id number] [place] [address] Jul, 2014 [facility] [place] [facility] [address] [id number] [place] [address] 09 Jul, 2014 [facility] [place] [facility] [address] [id number] [place] [address] 17 Jul, 2014 [facility] [place] [facility] [address] [facility] [id number] [place] [address] 17 Jul, 2014 [facility] [place] [facility] [address] [id number] [place] [address] 16 Jul, 2014 [facility] [place] [facility] [address] [id number] [place] [address] 16 Jul, 2014 [facility] [place] [facility] [address] [id number] [place] [address] 16 Jul, 2014 [facility] [place] [facility] [address] [id number] [place] [address] 16 Jul, 2014 [facility] [place] [facility] [address] [id number] [place] [address] 16 Jul, 2014 [facility] [place] [facility] [address] [id number] [place] [address] 16 Jul, 2014 [facility] [place] [facility] [address] [id number] [place] [address] 16 Jul, 2014 [facility] [place] [facility] [address] [id number] [place] [address] 16 Jul, 2014 [facility] [place] [facility] [address] [id number] [place] [address] 16 Jul, 2014 [facility] [address] [id number] [place] [address] 16 Jul, 2014 [facility] [place] [address] [id number] [place] [address] Jul, [facility] [address] [facility] [id number] [place] [address] Jul, [facility] [address] [facility] [id number] [place] [address] Jul, [facility] [place] [facility] [address] [id number] [place] [address] Jul, [facility] [address] [facility] [id number] [place] [address] May, [facility] [address] [facility] [id number] [place] [address] May, [facility] [address] [id number] [place] [address] May, [facility] [address] [id number] [place] [address] May, [facility] [address] [id number] [place] [address] May, [facility] [address] [id number] [place] [address] May, [facility] [address] [id number] [place] [address] May, [facility] [address] [id number] [place] [address] May, [facility] [address] [id number] [place] [address] May, [facility] [address] [id number] [place] [address] May, [facility] [address] [id number] [place] [address] Apr, [facility] [address] [id number] [place] [address] Apr, [facility] [address] [id number] [place] [address] Apr, [facility] [address] [id number] [place] [address] 15 Apr, 2014 [facility] [address] [id number] [place] [address] Apr, [facility] [address] [id number] [place] [address] Apr, [facility] [address] [id number] [place] [address] Mar, [facility] [address] [id number] [place] [address] Mar, [facility] [address] [id number] [place] [address] Mar, [facility] [address] [id number] [place] [address] Mar, [facility] [address] [id number] [place] [address] Mar, [facility] [address] [id number] [place] [address] Mar, [facility] [address] [id number] [place] [address] Mar, [facility] [address] [id number] [place] [address] Mar, [facility] [address] [id number] [place] [address] Mar, [facility] [address] [id number] [place] [address] Mar, [facility] [address] [id number] [place] [address] Mar, [facility] [id number] [place] [address] Feb, [facility] [address] [id number] [place] [address] Feb, [facility] [address] [facility] [id number] [place] [address] Feb, [facility] [place] [facility] [address] [facility] [id number] [place] [address] 15 Feb, 2014 [facility] [place] [facility] [address] [facility] [id number] [place] [address] Feb, [facility] [place] [facility] [address] [facility] [id number] [place] [address] Feb, 2013 [facility] [place] [facility] [address] [facility] [id number] [place] [address] Feb, [facility] [place] [facility] [address] [facility] [id number] [place] [address] Feb, [facility] [place] [facility] [address] [facility] [id number] [place] [address] Feb, [facility] [place] [facility] [address] [facility] [id number] [place] [address] Feb, [facility] [place] [facility] [address] [facility] [id number] [place] [address] Jan, [facility] [place] [facility] [address] [facility] [id number] [place] [address] 22 Jan, 2013 [facility] [place] [facility] [address] [facility] [id number] [place] [address] 16 Jan, 2014 [facility] [place] [facility] [address] [facility] [id number] [place] [address] 16 Jan, 2013 [facility] [place] [facility] [address] [facility] [id number] [place] [address] 12 Jan, 2014 [facility] [place] [facility] [address] [facility] [id number] [place] [address] Jan, 2013 [facility] [place] [facility] [address] [facility] [id number] [place] [address] Jan, [facility] [place] [facility] [address] [facility] [id number] [place] [address] Dec, [facility] [place] [facility] [address] [facility] [id number] [place] [address] Dec, [facility] [place] [facility] [address] [facility] [id number] [place] [address] Dec, [facility] [place] [facility] [address] [facility] [id number] [place] [address] Dec, [facility] [place] [facility] [address] [facility] [id number] [place] [address] Dec, [facility] [place] [facility] [address] [facility] [id number] [place] [address] Dec, [facility] [place] [facility] [address] [facility] [id number] [place] [address] Dec, [facility] [place] [facility] [address] [facility] [id number] [place] [address] Dec, [facility] [place] [facility] [address] [facility] [id number] [place] [address] Oct, [facility] [place] [facility] [address] [facility] [id number] [place] [address] Oct, [facility] [place] [facility] [address] [facility] [id number] [place] [address] September, [facility] [place] [facility] [address] [facility] [id number] [place] [address] September, [facility] [place] [facility] [address] [facility] [id number] [place] [address] September, [facility] [place] [facility] [address] [facility] [id number] [place] [address] September, [facility] [place] [facility] [address] [facility] [id number] [place] [address] September, [facility] [place] [facility] [address] [facility] [id number] [place] [address] September, [facility] [place] [facility] [address] [facility] [id number] [place] [address] September, [facility] [place] [facility] [address] [facility] [id number] [place] [address] Aug, [facility] [place] [facility] [address] [facility] [id number] [place] [address] Aug, [facility] [place] [facility] [address] [facility] [id number] [place] [address] 24 Jul, 2013 [facility] [place] [facility] [address] [facility] [id number] [place] [address] Jul, [facility] [place] [facility] [address] [facility] [id number] [place] [address] Jul, [facility] [place] [facility] [address] [facility] [id number] [place] [address] Jul, [facility] [place] [facility] [address] [facility] [id number] [place] [address] Jul, [facility] [place] [facility] [address] [facility] [id number] [place] [address] Jul, [facility] [place] [facility] [address] [facility] [id number] [place] [address] Jul, [facility] [place] [facility] [address] [facility] [id number] [place] [address] Jul, [facility] [place] [facility] [address] [facility] [id number] [place] [address] 15 May, 2013 [facility] [place] [facility] [address] [facility] [id number] [place] [address] May, [facility] [place] [facility] [address] [facility] [id number] [place] [address] May, [facility] [place] [facility] [address] [facility] [id number] [place] [address] May, [facility] [place] [facility] [address] [facility] [id number] [place] [address] Apr, [facility] [place] [facility] [address] [facility] [id number] [place] [address] Mar, [facility] [place] [facility] [address] [facility] [id number] [place] [address] Mar, [facility] [place] [facility] [address] [facility] [id number] [place] [address] Mar, [facility] [place] [facility] [address] [facility] [id number] [place] [address] Mar, [facility] [place] [facility] [address] [facility] [id number] [place] [address] Mar, [facility] [place] [facility] [address] [facility] [id number] [place] [address] Mar, [facility] [place] [facility] [address] [facility] [id number] [place] [address] Mar, [facility] [place] [facility] [address] [facility] [id number] [place] [address] Mar, [facility] [place] [facility] [address] [facility] [id number] [place] [address] Mar, [facility] [place] [facility] [address] [facility] [id number] [place] [address] Mar, [facility] [place] [facility] [address] [facility] [id number] [place] [address] Mar, [facility] [place] [facility] [address] [facility] [id number] [place] [address] Mar, [facility] [place] [facility] [address] [facility] [id number] [place] [address] Feb, [facility] [place] [facility] [address] [facility] [id number] [place] [address] Feb, [facility] [place] [facility] [address] [facility] [id number] [place] [address] Feb, [facility] [place] [facility] [address] [facility] [id number] [place] [address] Feb, [facility] [place] [facility] [address] [facility] [id number] [place] [address] Feb, [facility] [place] [facility] [address] [facility] [id number] [place] [address] Jan, [facility] [place] [facility] [address] [facility] [id number] [place] [address] Dec, [facility] [place] [facility] [address] [facility] [id number] [place] [address] Dec, [facility] [place] [facility] [address] [facility] [id number] [place] [address] Dec, [facility] [place] [facility] [address] [id number] [place] [address] Nov, [facility] [place] [facility] [address] [facility] [id number] [place] [address] Nov, [facility] [place] [facility] [address] [facility] [id number] [place] [address] Nov, [facility] [place] [facility] [address] [facility] [id number] [place] [address] Oct, [facility] [place] [facility] [address] [id number] [place] [address] Oct, [facility] [place] [facility] [address] [facility] [id number] [place] [address] Oct, [facility] [place] [facility] [address] [facility] [id number] [place] [address] September, [facility] [place] [facility] [address] [facility] [id number] [place] [address] September, [facility] [place] [facility] [address] [facility] [id number] [place] [address] September, [facility] [place] [facility] [address] [facility] [id number] [place] [address] September, [facility] [place] [facility] [address] [facility] [id number] [place] [address] September, [facility] [place] [facility] [address] [facility] [id number] [place] [address] Aug, [facility] [place] [facility] [address] [facility] [id number] [place] [address] Aug, [facility] [place] [facility] [address] [facility] [id number] [place] [address] Aug, [facility] [place] [facility] [address] [facility] [id number] [place] [address] Jul, [facility] [place] [facility] [address] [facility] [id number] [place] [address] Jul, [facility] [place] [facility] [address] [facility] [id number] [place] [address] Jul, [facility] [address] [facility] [id number] [place] [address] Jul, [facility] [place] [facility] [address] [facility] [id number] [place] [address] Jul, [facility] [id number] [place] [address] Jul, [facility] [place] [facility] [address] [id number] [place] [address] Jul, [facility] [id number] [place] [address] May, [facility] [place] [facility] [id number] [place] [address] May, [facility] [id number] [place] [address] May, [facility] [place] [facility] [address] [id number] [place] [address] Apr, [facility] [id number] [place] [address] Apr, [facility] [place] [facility] [address] [id number] [place] [address] Apr, [facility] [id number] [place] [address] Apr, [facility] [place] [facility] [address] [id number] [place] [address] Apr, [facility] [place] [facility] [address] [facility] [id number] [place] [address] Mar, [facility] [place] [facility] [address] [id number] [place] [address] Mar, [facility] [place] [facility] [address] [facility] [id number] [place] [address] 15 Mar, 2012 [facility] [place] [facility] [address] [facility] [id number] [place] [address] Mar, [facility] [place] [facility] [address] [id number] [place] [address] Feb, [facility] [place] [facility] [address] [id number] [place] [address] Feb, [facility] [place] [facility] [address] [id number] [place] [address] Feb, [facility] [place] [facility] [address] [facility] [id number] [place] [address] Feb, [facility] [place] [facility] [address] [id number] [place] [address] Feb, [facility] [place] [facility] [address] [id number] [place] [address] Jan, [facility] [place] [facility] [address] [id number] [place] [address] Dec, [facility] [place] [facility] [address] [id number] [place] [address] Dec, [facility] [place] [facility] [address] [id number] [place] [address] Dec, [facility] [place] [facility] [address] [id number] [place] [address] Nov, [facility] [place] [facility] [address] [id number] [place] [address] Nov, [facility] [place] [facility] [address] [id number] [place] [address] Nov, [facility] [place] [facility] [address] [id number] [place] [address] Oct, [facility] [place] [facility] [address] [id number] [place] [address] Oct, [facility] [place] [facility] [address] [id number] [place] [address] Oct, [facility] [place] [facility] [address] [id number] [place] [address] Oct, [facility] [place] [facility] [address] [id number] [place] [address] September, [facility] [place] [facility] [address] [id number] [place] [address] September, [facility] [place] [facility] [address] [id number] [place] [address] Aug, [facility] [place] [facility] [address] [id number] [place] [address] Aug, [facility] [place] [facility] [address] [id number] [place] [address] Aug, [facility] [place] [facility] [address] [id number] [place] [address] Aug, [facility] [place] [facility] [address] [facility] [id number] [place] [address] Aug, [facility] [place] [facility] [address] [id number] [place] [address] Aug, [facility] [place] [facility] [address] [id number] [place] [address] Aug, [facility] [place] [facility] [address] [id number] [place] [address] Jul, [facility] [place] [facility] [address] [id number] [place] [address] Jul, [facility] [place] [facility] [address] [id number] [place] [address] Jul, [facility] [place] [facility] [address] [id number] [place] [address] May, [facility] [place] [facility] [address] [id number] [place] [address] May, [facility] [place] [facility] [address] [id number] [place] [address] May, [facility] [place] [facility] [address] [id number] [place] [address] Apr, [facility] [place] [facility] [address] [id number] [place] [address] Apr, [facility] [address] [id number] [place] [address] Mar, [facility] [id number] [place] [address] Mar, [facility] [address] [id number] [place] [address] Mar, [facility] [id number] [place] [address] Mar, [facility] [id number] [place] [address] Mar, [facility] [address] [address] Mar, [facility] [id number] [place] [address] Feb, [facility] [id number] [place] [address] Feb, [facility] [address] [id number] [place] [address] Feb, IMMUNIZATIONS No Known Immunizations SOCIAL HISTORY Never Assessed REASON FOR VISIT PLAN OF CARE VITAL SIGNS Height 72 in 2013-06-14 Weight 263 lbs 2013-06-14 Temperature 97.9 degrees Fahrenheit 2013-06-14 Heart Rate 100 bpm 2013-06-14 Respiratory Rate 32 2013-06-14 Blood pressure systolic 138 mmHg 2013-06-14 Blood pressure diastolic 72 mmHg 2013-06-14 MEDICATIONS Unknown Medications RESULTS No Results PROCEDURES Procedure Date Ordered Result Body Site MEASURE BLOOD OXYGEN LEVEL Jun 14, 2013 INSTRUCTIONS MEDICATIONS ADMINISTERED No Known Medications MEDICAL [...] infections x 3 2016 Hospitalization History [facility] - right big t oe removed 2019
--- OUTSIDE RECORDS SUMMARY | 2020-01-03 07:37 | XMS REPORT ---
Author Author Tra SLIVERIO Organization [facility] Address [address] [place] [address] Care Team Providers Care Electric Lineman Name Role Phone FERNY SILVERIO Unavailable PROBLEMS Type Condition ICD9-CM Code IBP13-FE Code Onset Dates Condition S tatus SNOMED Code Problem Hypertension I10 Active 1069334 3 Problem Hypoxia R09.02 Active 485098885 Problem COPD (chronic obstructive pulmonary disease) J44.9 Active 07735073 Problem Lumbar radiculopathy, chronic M54.16 Active 037061054 Problem 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.4 Active 475171731 Problem Recurrent major depressive disorder, in full remission F33.42 Active 454260052 Problem Hyperlipidemia, unspecified E78.5 Ac tive 73614309 Problem PAD (peripheral artery disease) I73.9 Active 575947581 Problem Type 2 diabetes mellitus with other specified complication E11.69 Active 938222616400 Problem Anxiety F41.9 Active 29650561 Problem Type 2 diabetes mellitus wit h diabetic peripheral angiopathy without gangrene E11.51 Active 016425925 Problem ED (erectile dysfunction) of organic origin N52.9 Active 551361327 Problem Arthritis M19.90 Active 2363155 Problem Morbid (severe) obesity due to excess calories E66 .01 Active 337994880 ALLERGIES No Information ENCOUNTERS Encounter Location Date Diagnosis [facility] [id number] [place] [address] 09 Aug, 2019 [facility] [address] [address] Jul, Back pain M54.9 [facility] [address] [address] Jul, Back pain M54.9 [facility] [address] [address] Jul, Lumbar radiculopathy, chronic M54.16 [facility] [address] [address] Jul, Back pain M54.9 [facility] [address] [address] 07 Jul, 2019 Encounter for Medicare annual [...] diabetes mellitus with other specified complication E11.69 [address] [address] Jul, Back pain M54.9 [place] [address] [address] Jul, Anxiety F41.9 [address] [place] [address] [address] May, [address] [address] May, Lumbar radiculopathy, chronic M54.16 [address] [address] [address] May, Back pain M54.9 [facility] [address] [address] May, [address] [place] [address] [address] May, Back pain M54.9 and Anxiety F41.9 [facility] [address] [address] May, [address] [address] May, Type 2 diabetes mellitus with diabetic p eripheral angiopathy without gangrene E11.51 ; Arthritis M19.90 ; ED (erectile dysfunction) of organic origin N52.9 ; Morbid (severe) obesity due to excess calories E66.01 and Lumbar radiculopathy, chronic M54.16 [address] [address] 02 May, 2019 Diabetes E11.9 [address] [place] [address] [address] Apr, [place] [place] [address] [address] Apr, Back pain M54.9 [place] [place] [address] [address] Apr, [place] [place] [address] [address] Apr, Anxiety F41.9 [place] [address] [address] 10 Apr, 2019 Back pain M54.9 and Lumbar radiculopathy , chronic M54.16 [place] [address] [address] 05 Apr, 2019 Back pain M54.9 ; Anxiety F41.9 and Lumb ar radiculopathy, chronic M54.16 [address] [address] [address] Mar, [address] [place] [address] [address] Mar, [address] [address] Mar, Back pain M54.9 [address] [place] [address] [address] Mar, [place] [place] [address] [address] 17 Oct, 2019 Type 2 diabetes mellitus with diabetic p eripheral angiopathy without gangrene E11.51 ; Lumbar radiculopathy, chronic M54.16 ; ED (erectile dysfunction) of organic origin N52.9 ; Encounter for immunization Z23 ; COPD (chronic obstructive pulmonary disease) J44.9 and Anxiety F41.9 [facility] [address] [address] Feb, Back pain M54.9 [facility] [address] [address] Feb, [facility] [address] [address] Feb, [facility] [address] [address] Feb, [facility] [address] [address] Feb, Back pain M54.9 [facility] [address] [address] Feb, [facility] [address] [address] Jan, Anxiety F41.9 [facility] [address] [address] Jan, Anxiety F41.9 [facility] [address] [address] Jan, [facility] [address] [address] Jan, [facility] [address] [address] Jan, Back pain M54.9 [facility] [address] [address] Jan, [facility] [address] [address] Dec, Acute non-recurrent frontal sinusitis J0 1.10 [facility] [address] [address] Dec, Acute non-recurrent frontal sinusitis J0 1.10 [facility] [address] [address] Dec, Type 2 diabetes mellitus with diabetic p eripheral angiopathy without gangrene E11.51 ; Lumbar radiculopathy, chronic M54.16 ; Recurrent major depressive disorder, in full remission F33.42 and Anxiety F41.9 [facility] [address] [address] Dec, [facility] [address] [address] Nov, Anxiety F41.9 [facility] [address] [address] Nov, [facility] [address] [address] Nov, Back pain M54.9 [facility] [address] [address] Nov, [facility] [address] [address] Nov, Back pain M54.9 [facility] [address] [address] Nov, Anxiety F41.9 [facility] [address] [address] Nov, [facility] [address] [address] Oct, Back pain M54.9 [facility] [address] [address] Oct, [facility] [address] [address] Oct, [facility] [address] [address] Oct, [facility] [address] [address] September, Back pain M54.9 [facility] [address] [address] September, [facility] [address] [address] September, [facility] [address] [address] September, [facility] [address] [address] Aug, Back pain M54.9 [address] [address] Aug, Anxiety F41.9 [address] [address] Aug, [facility] [address] [address] Aug, Pressure ulcer of other site, stage 3 L8 9.893 and COPD (chronic obstructive pulmonary disease) J44.9 [address] [address] Aug, History of smoking Z87.891 [address] [address] Jul, Type 2 diabetes mellitus with diabetic p eripheral angiopathy without gangrene E11.51 [facility] [address] [address] Jul, Back pain M54.9 [facility] [address] [address] Jul, Anxiety F41.9 [facility] [address] [address] Jul, [facility] [address] [address] 13 Jul, 2018 Back pain M54.9 [address] [address] 12 Jul, 2018 Back pain M54.9 [facility] [address] [address] Jul, Lumbar radiculopathy, chronic M54.16 ; H ypertension I10 and Type 2 diabetes mellitus with diabetic peripheral angiopathy without gangrene E11.51 [address] [address] Jul, Back pain M54.9 [address] [address] Jul, Back pain M54.9 and Anxiety F41.9 [address] [address] Jul, [address] [address] May, Back pain M54.9 and Anxiety F41.9 [address] [address] May, [address] [address] Apr, Radiculopathy of lumbar region M54.16 ; Back pain M54.9 and Anxiety F41.9 [address] [address] Apr, Diabetes E11.9 ; Muscle spasm M62.838 an d Lumbar radiculopathy, chronic M54.16 [address] [address] Apr, [address] [place] [address] Apr, [address] [place] [address] Mar, Back pain M54.9 and Anxiety F41.9 [facility] [address] [address] Mar, [facility] [address] [address] Mar, [facility] [address] [address] Mar, [address] [address] Mar, Encounter for immunization Z23 [address] [place] [address] Feb, Back pain M54.9 and Anxiety F41.9 [address] [address] Feb, Back pain M54.9 and Anxiety F41.9 [address] [address] Jan, Back pain M54.9 and Anxiety F41.9 [address] [address] Jan, [address] [address] Dec, [address] [address] Dec, Back pain M54.9 and Anxiety F41.9 [address] [place] [address] Dec, Diabetes E11.9 ; Type 2 diabetes mellitu s with diabetic peripheral angiopathy without gangrene E11.51 ; Lumbar radiculopathy, chronic M54.16 ; COPD (chronic obstructive pulmonary disease) J44.9 and Anxiety F41.9 [address] [address] Dec, Back pain M54.9 and Anxiety F41.9 [address] [address] Nov, Back pain M54.9 and Anxiety F41.9 [address] [address] Oct, [address] [address] Oct, Back pain M54.9 and Anxiety F41.9 [address] [address] September, Anxiety F41.9 and Back pain M54.9 [address] [address] September, Diabetes E11.9 ; Hypertension I10 ; COPD (chronic obstructive pulmonary disease) J44.9 and Lumbar radiculopathy, chronic M54.16 [address] [address] September, Anxiety F41.9 [address] [address] Aug, [address] [address] Aug, [address] [address] Aug, Anxiety F41.9 and Back pain M54.9 [address] [address] Aug, Medicare annual wellness visit, initial Z00.00 [...] 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.4 [address] [address] Jul, Back pain M54.9 [facility] [address] [address] Jul, [facility] [address] [address] Jul, Anxiety F41.9 and Back pain M54.9 [facility] [address] [address] Jul, Diabetes E11.9 [facility] [address] [address] May, [facility] [address] [address] May, Diabetes E11.9 ; Anxiety F41.9 ; Back pa in M54.9 and COPD (chronic obstructive pulmonary disease) J44.9 [facility] [address] [address] May, Back pain M54.9 [facility] [address] [address] May, [facility] [address] [address] Apr, Back pain M54.9 [facility] [address] [address] Mar, Back pain M54.9 [facility] [address] [address] Mar, [facility] [address] [address] 16 Mar, 2017 [facility] [address] [address] 14 Mar, 2017 Radiculopathy of lumbar region M54.16 [facility] [address] [address] 13 Mar, 2017 [facility] [address] [address] 07 Mar, 2017 Encounter for immunization Z23 and Lumba r radiculopathy, chronic M54.16 [address] [address] Mar, Back pain M54.9 and Anxiety F41.9 [facility] [address] [facility] [id number] [place] [address] Feb, Acute bilateral low back boy n with left-sided sciatica M54.42 and Acute bilateral low back pain with right-sided sciatica M54.41 [address] [address] Feb, [address] [address] Feb, Back pain M54.9 [address] [address] 05 Jan, 2017 Back pain M54.9 and Anxiety F41.9 [address] [address] 05 Jan, 2017 Diabetes E11.9 [address] [address] Dec, Diabetes E11.9 ; Back pain M54.9 ; Anxie ty F41.9 and Insulin long-term use Z79.4 [address] [address] Dec, Anxiety F41.9 [address] [address] Dec, Back pain M54.9 [address] [address] Nov, Back pain M54.9 [address] [address] Oct, Back pain M54.9 and Anxiety F41.9 [facility] [address] [address] September, Back pain M54.9 [facility] [address] [address] September, Back pain M54.9 and Anxiety F41.9 [facility] [address] [address] Aug, Diabetes E11.9 ; Anxiety F41.9 ; Back pa in M54.9 and PAD (peripheral artery disease) I73.9 [facility] [address] [address] Aug, Anxiety F41.9 [address] [address] Aug, Back pain M54.9 [facility] [address] [address] Jul, Back pain M54.9 [facility] [address] [address] Jul, Back pain M54.9 [facility] [address] [address] 23 Jul, 2016 Back pain M54.9 [address] [address] 16 Jul, 2016 Dorsalgia M54.9 [facility] [address] [address] 14 Jul, 2016 [facility] [address] [address] May, Back pain M54.9 [facility] [address] [address] May, Diabetes E11.9 ; Anxiety F41.9 ; Port ca theter in place Z95.828 ; Encounter for immunization Z23 and Insulin long-term use Z79.4 [address] [address] Apr, Back pain M54.9 [facility] [address] [address] Apr, Back pain M54.9 [facility] [address] [address] Apr, [facility] [address] [address] Apr, Back pain M54.9 [facility] [address] [address] Mar, COPD (chronic obstructive pulmonary dise ase) J44.9 [facility] [address] [address] Feb, [facility] [address] [address] Jan, [facility] [address] [address] Jan, [facility] [address] [address] Jan, [facility] [address] [address] Jan, [facility] [address] [address] Dec, Diabetes E11.9 ; Hypoxia R09.02 and Back pain M54.9 [facility] [address] [address] Dec, [facility] [address] [address] Nov, [facility] [address] [address] Oct, Anxiety F41.9 [facility] [address] [address] Oct, Back pain M54.9 [address] [address] September, Back pain M54.9 [address] [address] September, Diabetes E11.9 [address] [address] September, [address] [address] September, Diabetes E11.9 ; Insulin long-term use Z 79.4 and Back pain M54.9 [address] [address] Aug, Back pain M54.9 [address] [address] Aug, Back pain M54.9 ; Anxiety F41.9 and Arth ropathy, unspecified M12.9 [address] [address] Jul, Back pain M54.9 [address] [address] [address] Jul, Anxiety F41.9 [address] [address] [address] Jul, Back pain M54.9 [address] [address] Jul, [address] [address] Jul, [address] [address] May, Back pain M54.9 ; Diabetes E11.9 ; Insul in long-term use Z79.4 ; COPD (chronic obstructive pulmonary disease) J44.9 and Hypertension I10 [address] [address] May, Chronic pain G89.29 [facility] [address] [address] Apr, [facility] [address] [address] Apr, [facility] [address] [address] Mar, [facility] [address] [address] Mar, Encounter for immunization Z23 and Diabe boris E11.9 [facility] [address] [address] Feb, [facility] [address] [address] Feb, [facility] [address] [address] Jan, [facility] [address] [address] Jan, [facility] [address] [address] Dec, [facility] [address] [address] Dec, [facility] [address] [address] Dec, Unspecified arthropathy, site unspecifie d 716.90 and Diabetes mellitus type 2, uncontrolled 250.02 [facility] [address] [address] Dec, [facility] [address] [address] Nov, [facility] [address] [address] Oct, [facility] [address] [address] September, [facility] [address] [facility] [id number] [place] [address] September, [facility] [address] [id number] [place] [address] September, [facility] [address] [id number] [place] [address] September, [facility] [address] [id number] [place] [address] 14 Aug, 2014 [facility] [address] [id number] [place] [address] 13 Aug, 2014 [facility] [address] [id number] [place] [address] 18 Jul, 2014 [facility] [address] [id number] [place] [address] 18 Jul, 2014 [facility] [address] [id number] [place] [address] 16 Jul, 2014 [facility] [address] [id number] [place] [address] 16 Jul, 2014 [facility] [address] [id number] [place] [address] 16 Jul, 2014 [facility] [address] [id number] [place] [address] 16 Jul, 2014 [facility] [address] [id number] [place] [address] 16 Jul, 2014 [facility] [address] [id number] [place] [address] 16 Jul, 2014 [facility] [address] [facility] [id number] [place] [address] 16 Jul, 2014 [facility] [address] [id number] [place] [address] 13 Jul, 2014 [facility] [address] [id number] [place] [address] 13 Jul, 2014 [facility] [address] [id number] [place] [address] 09 Jul, 2014 [facility] [address] [facility] [id number] [place] [address] Jul, 2014 [facility] [address] [facility] [id number] [place] [address] 17 Jul, 2014 [facility] [address] [id number] [place] [address] 17 Jul, 2014 [facility] [address] [id number] [place] [address] 16 Jul, 2014 [facility] [address] [facility] [id number] [place] [address] 16 Jul, 2014 [facility] [address] [id number] [place] [address] 16 Jul, 2014 [facility] [address] [id number] [place] [address] 16 Jul, 2014 [facility] [address] [id number] [place] [address] 16 Jul, 2014 [facility] [address] [id number] [place] [address] 16 Jul, 2014 [facility] [address] [id number] [place] [address] 16 Jul, 2014 [facility] [address] [id number] [place] [address] 16 Jul, 2014 [facility] [address] [id number] [place] [address] 16 Jul, 2014 [facility] [address] [facility] [id number] [place] [address] 16 Jul, 2014 [facility] [address] [id number] [place] [address] 16 Jul, 2014 [facility] [address] [id number] [place] [address] 16 Jul, 2014 [facility] [address] [id number] [place] [address] Jul, [facility] [address] [id number] [place] [address] Jul, [facility] [address] [id number] [place] [address] May, [facility] [address] [id number] [place] [address] May, [facility] [address] [id number] [place] [address] May, [facility] [address] [facility] [id number] [place] [address] May, [facility] [address] [id number] [place] [address] May, [facility] [address] [id number] [place] [address] May, [facility] [address] [id number] [place] [address] May, [facility] [address] [id number] [place] [address] May, [facility] [address] [id number] [place] [address] May, [facility] [address] [id number] [place] [address] May, [facility] [address] [id number] [place] [address] Apr, [facility] [address] [id number] [place] [address] Apr, [facility] [address] [id number] [place] [address] Apr, [facility] [address] [id number] [place] [address] Apr, [facility] [address] [id number] [place] [address] Apr, [facility] [address] [id number] [place] [address] Apr, [facility] [address] [id number] [place] [address] Mar, [facility] [address] [id number] [place] [address] Mar, [facility] [address] [id number] [place] [address] Mar, [facility] [address] [id number] [place] [address] Mar, [facility] [address] [id number] [place] [address] Mar, [facility] [address] [id number] [place] [address] Mar, [facility] [address] [id number] [place] [address] Mar, [facility] [address] [id number] [place] [address] Mar, [facility] [address] [id number] [place] [address] Mar, [facility] [address] [id number] [place] [address] Mar, [facility] [address] [id number] [place] [address] Mar, [facility] [address] [id number] [place] [address] Feb, [facility] [address] [id number] [place] [address] 30 Feb, 2014 [facility] [id number] [place] [address] Feb, [facility] [address] [id number] [place] [address] Feb, [facility] [address] [id number] [place] [address] Feb, [facility] [address] [facility] [id number] [place] [address] Feb, [facility] [address] [facility] [id number] [place] [address] Feb, [facility] [address] [id number] [place] [address] Feb, [facility] [address] [id number] [place] [address] Feb, [facility] [place] [facility] [address] [facility] [id number] [place] [address] Feb, [facility] [place] [facility] [address] [facility] [id number] [place] [address] Jan, [facility] [place] [facility] [address] [id number] [place] [address] Jan, [facility] [place] [facility] [address] [id number] [place] [address] 16 Jan, 2014 [facility] [place] [facility] [address] [id number] [place] [address] 16 Jan, 2014 [facility] [place] [facility] [address] [id number] [place] [address] Jan, [facility] [place] [facility] [address] [id number] [place] [address] Jan, [facility] [place] [facility] [address] [id number] [place] [address] Jan, [facility] [place] [facility] [address] [id number] [place] [address] Dec, [facility] [place] [facility] [address] [facility] [id number] [place] [address] Dec, [facility] [place] [facility] [address] [id number] [place] [address] Dec, [facility] [place] [facility] [address] [id number] [place] [address] Dec, [facility] [place] [facility] [address] [id number] [place] [address] Dec, [facility] [place] [facility] [address] [id number] [place] [address] Dec, [facility] [place] [facility] [address] [id number] [place] [address] Dec, [facility] [place] [facility] [address] [facility] [id number] [place] [address] Dec, [facility] [place] [facility] [address] [id number] [facility] [address] Oct, [facility] [place] [facility] [address] [facility] [id number] [place] [address] Oct, [facility] [place] [facility] [address] [id number] [place] [address] September, [facility] [place] [facility] [address] [id number] [place] [address] September, [facility] [place] [facility] [address] [id number] [place] [address] September, [facility] [place] [facility] [address] [id number] [place] [address] September, [facility] [place] [facility] [address] [id number] [place] [address] September, [facility] [place] [facility] [address] [id number] [place] [address] September, [facility] [place] [facility] [address] [id number] [place] [address] September, [facility] [place] [facility] [address] [id number] [place] [address] Aug, [facility] [place] [facility] [address] [id number] [place] [address] Aug, [facility] [place] [facility] [address] [id number] [place] [address] Jul, [facility] [place] [facility] [address] [id number] [place] [address] Jul, [facility] [place] [facility] [address] [id number] [place] [address] 17 Jul, 2013 [facility] [place] [facility] [address] [id number] [place] [address] 17 Jul, 2013 [facility] [place] [facility] [address] [id number] [place] [address] 14 Jul, 2013 [facility] [place] [facility] [address] [id number] [place] [address] 14 Jul, 2013 [facility] [place] [facility] [address] [id number] [place] [address] Jul, [facility] [place] [facility] [address] [id number] [place] [address] Jul, [facility] [place] [facility] [address] [id number] [place] [address] 15 May, 2013 [facility] [place] [facility] [address] [id number] [place] [address] 15 May, 2013 [facility] [place] [facility] [address] [id number] [place] [address] May, [facility] [place] [facility] [address] [id number] [place] [address] May, [facility] [place] [facility] [address] [id number] [place] [address] Apr, [facility] [place] [facility] [address] [id number] [place] [address] Mar, [facility] [place] [facility] [address] [id number] [place] [address] Mar, [facility] [place] [facility] [address] [id number] [place] [address] Mar, [facility] [place] [facility] [address] [id number] [place] [address] Mar, [facility] [place] [facility] [address] [id number] [place] [address] Mar, [facility] [place] [facility] [address] [id number] [place] [address] Mar, [facility] [place] [facility] [address] [id number] [place] [address] Mar, [facility] [place] [facility] [address] [id number] [place] [address] Mar, [facility] [place] [facility] [address] [id number] [place] [address] Mar, [facility] [place] [facility] [address] [id number] [place] [address] Mar, [facility] [place] [facility] [address] [id number] [place] [address] Mar, [facility] [place] [facility] [address] [id number] [place] [address] Mar, [facility] [place] [facility] [address] [id number] [place] [address] Feb, [facility] [place] [facility] [address] [id number] [place] [address] Feb, [facility] [place] [facility] [address] [id number] [place] [address] Feb, [facility] [place] [facility] [address] [id number] [place] [address] Feb, [facility] [place] [facility] [address] [id number] [place] [address] Feb, [facility] [place] [facility] [address] [id number] [place] [address] Jan, [facility] [place] [facility] [address] [id number] [place] [address] Dec, [facility] [place] [facility] [address] [id number] [place] [address] Dec, [facility] [place] [facility] [address] [id number] [place] [address] Dec, [facility] [place] [facility] [address] [id number] [place] [address] Nov, [facility] [place] [facility] [address] [id number] [place] [address] Nov, [facility] [place] [facility] [address] [facility] [id number] [place] [address] Nov, [facility] [place] [facility] [address] [facility] [id number] [place] [address] Oct, [facility] [place] [facility] [address] [id number] [place] [address] Oct, [facility] [place] [facility] [address] [id number] [place] [address] Oct, [facility] [place] [facility] [address] [facility] [id number] [place] [address] September, [facility] [place] [facility] [address] [id number] [facility] [address] September, [facility] [place] [facility] [address] [id number] [place] [address] September, [facility] [place] [facility] [address] [id number] [place] [address] September, [facility] [place] [facility] [address] [facility] [id number] [place] [address] September, [facility] [place] [facility] [address] [id number] [place] [address] Aug, [facility] [place] [facility] [address] [id number] [place] [address] Aug, [facility] [place] [facility] [address] [id number] [place] [address] Aug, [facility] [place] [facility] [address] [facility] [id number] [place] [address] Jul, [facility] [place] [facility] [address] [id number] [place] [address] Jul, [facility] [place] [facility] [address] [id number] [place] [address] Jul, [facility] [place] [facility] [address] [id number] [place] [address] Jul, [facility] [place] [facility] [address] [id number] [place] [address] Jul, [facility] [address] [id number] [place] [address] Jul, [facility] [place] [facility] [address] [id number] [place] [address] Jul, [facility] [address] [id number] [place] [address] May, [facility] [place] [facility] [address] [id number] [place] [address] May, [facility] [place] [facility] [address] [id number] [place] [address] May, [facility] [place] [facility] [address] [id number] [place] [address] Apr, [facility] [address] [id number] [place] [address] Apr, [facility] [place] [facility] [id number] [place] [address] Apr, [facility] [place] [facility] [address] [id number] [place] [address] Apr, [facility] [place] [facility] [address] [id number] [place] [address] Apr, [facility] [place] [facility] [address] [id number] [place] [address] Mar, [facility] [place] [facility] [address] [id number] [place] [address] Mar, [facility] [place] [facility] [address] [id number] [place] [address] Mar, [facility] [place] [facility] [address] [id number] [place] [address] Mar, [facility] [place] [facility] [address] [id number] [place] [address] Feb, [facility] [place] [facility] [address] [id number] [place] [address] Feb, [facility] [place] [facility] [address] [id number] [place] [address] Feb, [facility] [place] [facility] [address] [id number] [place] [address] Feb, [facility] [place] [facility] [address] [id number] [place] [address] Feb, [facility] [place] [facility] [address] [id number] [place] [address] Jan, [facility] [place] [facility] [address] [facility] [id number] [place] [address] Dec, [facility] [place] [facility] [address] [id number] [place] [address] Dec, [facility] [place] [facility] [address] [id number] [place] [address] Dec, [facility] [place] [facility] [address] [id number] [place] [address] Nov, [facility] [place] [facility] [address] [id number] [place] [address] Nov, [facility] [place] [facility] [address] [id number] [place] [address] Nov, [facility] [place] [facility] [address] [id number] [place] [address] Oct, [facility] [place] [facility] [address] [id number] [place] [address] Oct, [facility] [place] [facility] [address] [id number] [place] [address] Oct, [facility] [place] [facility] [address] [id number] [place] [address] Oct, [facility] [place] [facility] [address] [id number] [place] [address] September, [facility] [place] [facility] [address] [id number] [place] [address] September, [facility] [place] [facility] [address] [id number] [place] [address] 30 Aug, 2011 [facility] [place] [facility] [address] [id number] [place] [address] Aug, [facility] [place] [facility] [address] [id number] [place] [address] Aug, [facility] [place] [facility] [address] [id number] [place] [address] Aug, [facility] [place] [facility] [address] [id number] [place] [address] Aug, [facility] [place] [facility] [address] [id number] [place] [address] Aug, [facility] [place] [facility] [address] [id number] [place] [address] Aug, [facility] [place] [facility] [address] [id number] [place] [address] Jul, [facility] [place] [facility] [address] [id number] [place] [address] Jul, [facility] [place] [facility] [address] [id number] [place] [address] Jul, [facility] [place] [facility] [address] [id number] [place] [address] May, [facility] [place] [facility] [address] [id number] [place] [address] May, [facility] [place] [facility] [address] [id number] [place] [address] May, [facility] [place] [facility] [address] [id number] [place] [address] Apr, [facility] [place] [facility] [address] [id number] [place] [address] Apr, [facility] [place] [facility] [address] [id number] [place] [address] Mar, [facility] [place] [facility] [address] [id number] [place] [address] Mar, [facility] [place] [facility] [address] [id number] [place] [address] Mar, [facility] [address] [id number] [place] [address] Mar, [facility] [address] [id number] [place] [address] Mar, [facility] [address] [id number] [place] [address] Mar, [facility] [address] [id number] [place] [address] Feb, [facility] [address] [id number] [place] [address] Feb, [facility] [address] [id number] [place] [address] Feb, IMMUNIZATIONS No Known Immunizations SOCIAL HISTORY [...] infections x 3 2016 Hospitalization History [facility] - right big t oe removed 2018
--- OUTSIDE RECORDS SUMMARY | 2020-01-03 07:37 | XMS REPORT ---
Author Author Tra SILVERIO Organization [facility] Address [address] [place] [address] Care Team Providers Care Motor Vehicle Compliance Analyst Name Role Phone FERNY SILVERIO Unavailable PROBLEMS Type Condition ICD9-CM Code SXK08-UP Code Onset Dates Condition S tatus SNOMED Code Problem Hypertension I10 Active 2404826 3 Problem Hypoxia R09.02 Active 644300580 Problem COPD (chronic obstructive pulmonary disease) J44.9 Active 38453488 Problem Lumbar radiculopathy, chronic M54.16 Active 122642600 Problem penitentiary current use of insulin Z79.4 Active 419079863 Problem Recurrent major depressive disorder, in full remission F33.42 Active 247907645 Problem Hyperlipidemia, unspecified E78.5 Ac tive 92458654 Problem PAD (peripheral artery disease) I73.9 Active 829379675 Problem Type 2 diabetes mellitus with other specified complication E11.69 Active 078124180470 Problem Anxiety F41.9 Active 10588501 Problem Type 2 diabetes mellitus wit h diabetic peripheral angiopathy without gangrene E11.51 Active 128574551 Problem ED (erectile dysfunction) of organic origin N52.9 Active 421280862 Problem Arthritis M19.90 Active 4630279 Problem Morbid (severe) obesity due to excess calories E66 .01 Active 861757684 ALLERGIES No Information ENCOUNTERS Encounter Location Date Diagnosis [facility] [id number] [place] [address] Jul, [facility] [place] [address] [address] Jul, Back pain M54.9 [facility] [place] [address] [address] Jul, Lumbar radiculopathy, chronic M54.16 [facility] [address] [address] Jul, Back pain M54.9 [place] [address] [address] 07 Jul, 2019 Encounter for Medicare annual [...] diabetes mellitus with other specified complication E11.69 [place] [address] [address] Jul, Back pain M54.9 [place] [address] [address] Jul, Anxiety F41.9 [place] [address] [address] May, [place] [address] [address] May, Lumbar radiculopathy, chronic M54.16 [place] [address] [address] May, Back pain M54.9 [place] [address] [address] May, [place] [address] [address] May, Back pain M54.9 and Anxiety F41.9 [place] [address] [address] May, [place] [address] [address] May, Type 2 diabetes mellitus with diabetic p eripheral angiopathy without gangrene E11.51 ; Arthritis M19.90 ; ED (erectile dysfunction) of organic origin N52.9 ; Morbid (severe) obesity due to excess calories E66.01 and Lumbar radiculopathy, chronic M54.16 [place] [address] [address] May, Diabetes E11.9 [place] [address] [address] Apr, [place] [address] [address] Apr, Back pain M54.9 [place] [address] [address] Apr, [place] [address] [address] Apr, Anxiety F41.9 [place] [address] [address] Apr, Back pain M54.9 and Lumbar radiculopathy , chronic M54.16 [place] [address] [address] Apr, Back pain M54.9 ; Anxiety F41.9 and Lumb ar radiculopathy, chronic M54.16 [place] [address] [address] Mar, [place] [address] [address] Mar, [place] [address] [address] Mar, Back pain M54.9 [place] [address] [address] Mar, [place] [address] [address] Feb, Type 2 diabetes mellitus with diabetic p eripheral angiopathy without gangrene E11.51 ; Lumbar radiculopathy, chronic M54.16 ; ED (erectile dysfunction) of organic origin N52.9 ; Encounter for immunization Z23 ; COPD (chronic obstructive pulmonary disease) J44.9 and Anxiety F41.9 [facility] [place] [address] [address] Feb, Back pain M54.9 [facility] [place] [address] [address] Feb, [facility] [place] [address] [address] Feb, [facility] [place] [address] [address] Feb, [facility] [place] [address] [address] Feb, Back pain M54.9 [facility] [place] [address] [address] Feb, [facility] [place] [address] [address] Jan, Anxiety F41.9 [facility] [place] [address] [address] Jan, Anxiety F41.9 [facility] [place] [address] [address] Jan, [facility] [place] [address] [address] Jan, [facility] [place] [address] [address] Jan, Back pain M54.9 [facility] [place] [address] [address] Jan, [facility] [place] [address] [address] Dec, Acute non-recurrent frontal sinusitis J0 1.10 [facility] [place] [address] [address] Dec, Acute non-recurrent frontal sinusitis J0 1.10 [facility] [place] [address] [address] Dec, Type 2 diabetes mellitus with diabetic p eripheral angiopathy without gangrene E11.51 ; Lumbar radiculopathy, chronic M54.16 ; Recurrent major depressive disorder, in full remission F33.42 and Anxiety F41.9 [facility] [place] [address] [address] Dec, [facility] [place] [address] [address] Nov, Anxiety F41.9 [facility] [place] [address] [address] Nov, [facility] [place] [address] [address] Nov, Back pain M54.9 [facility] [place] [address] [address] Nov, [facility] [place] [address] [address] Nov, Back pain M54.9 [facility] [place] [address] [address] Nov, Anxiety F41.9 [facility] [place] [address] [address] Nov, [facility] [place] [address] [address] Oct, Back pain M54.9 [facility] [address] [address] Oct, [facility] [address] [address] Oct, [facility] [address] [address] Oct, [facility] [place] [address] [address] September, Back pain M54.9 [facility] [place] [address] [address] September, [facility] [place] [address] [address] September, [facility] [place] [address] [address] September, [facility] [address] [address] Aug, Back pain M54.9 [place] [address] [address] Aug, Anxiety F41.9 [place] [address] [address] Aug, [place] [address] [address] Aug, Pressure ulcer of other site, stage 3 L8 9.893 and COPD (chronic obstructive pulmonary disease) J44.9 [place] [address] [address] Aug, History of smoking Z87.891 [place] [address] [address] Jul, Type 2 diabetes mellitus with diabetic p eripheral angiopathy without gangrene E11.51 [place] [address] [address] Jul, Back pain M54.9 [facility] [place] [address] [address] Jul, Anxiety F41.9 [facility] [place] [address] [address] Jul, [place] [address] [address] Jul, Back pain M54.9 [place] [address] [address] Jul, Back pain M54.9 [facility] [place] [address] [address] Jul, Lumbar radiculopathy, chronic M54.16 ; H ypertension I10 and Type 2 diabetes mellitus with diabetic peripheral angiopathy without gangrene E11.51 [place] [address] [address] Jul, Back pain M54.9 [place] [address] [address] Jul, Back pain M54.9 and Anxiety F41.9 [place] [address] [address] Jul, [place] [address] [address] May, Back pain M54.9 and Anxiety F41.9 [place] [address] [address] May, [facility] [place] [address] [address] Apr, Radiculopathy of lumbar region M54.16 ; Back pain M54.9 and Anxiety F41.9 [place] [address] [address] Apr, Diabetes E11.9 ; Muscle spasm M62.838 an d Lumbar radiculopathy, chronic M54.16 [place] [address] [address] Apr, [place] [address] [address] Apr, [facility] [place] [address] [address] Mar, Back pain M54.9 and Anxiety F41.9 [place] [address] [address] Mar, [facility] [place] [address] [address] Mar, [facility] [place] [address] [address] Mar, [facility] [place] [address] [address] Mar, Encounter for immunization Z23 [facility] [place] [address] [address] Feb, Back pain M54.9 and Anxiety F41.9 [place] [address] [address] Feb, Back pain M54.9 and Anxiety F41.9 [place] [address] [address] Jan, Back pain M54.9 and Anxiety F41.9 [place] [address] [address] Jan, [facility] [place] [address] [address] Dec, [facility] [place] [address] [address] Dec, Back pain M54.9 and Anxiety F41.9 [place] [address] [address] Dec, Diabetes E11.9 ; Type 2 diabetes mellitu s with diabetic peripheral angiopathy without gangrene E11.51 ; Lumbar radiculopathy, chronic M54.16 ; COPD (chronic obstructive pulmonary disease) J44.9 and Anxiety F41.9 [place] [address] [address] Dec, Back pain M54.9 and Anxiety F41.9 [facility] [place] [address] [address] Nov, Back pain M54.9 and Anxiety F41.9 [place] [id number] [place] [address] Oct, [place] [address] [address] Oct, Back pain M54.9 and Anxiety F41.9 [place] [address] [address] September, Anxiety F41.9 and Back pain M54.9 [place] [address] [address] September, Diabetes E11.9 ; Hypertension I10 ; COPD (chronic obstructive pulmonary disease) J44.9 and Lumbar radiculopathy, chronic M54.16 [place] [address] [address] September, Anxiety F41.9 [place] [address] [address] Aug, [place] [address] [address] Aug, [place] [address] [address] Aug, Anxiety F41.9 and Back pain M54.9 [place] [address] [address] Aug, Medicare annual wellness visit, initial Z00.00 ; COPD (chronic obstructive pulmonary disease) J44.9 ; PAD (peripheral artery disease) I73.9 ; Insulin long-term use Z79.4 ; Hypertension I10 ; Anxiety F41.9 ; Recurrent major depressive disorder, in full remission F33.42 ; Pressure ulcer of other site, stage 3 L89.893 ; Type 2 diabetes mellitus with diabetic peripheral angiopathy without gangrene E11.51 and penitentiary current use of insulin Z79.4 [place] [id number] [place] [address] Jul, Back pain M54.9 [place] [address] [address] Jul, [facility] [place] [address] [address] Jul, Anxiety F41.9 and Back pain M54.9 [facility] [place] [address] [address] Jul, Diabetes E11.9 [facility] [place] [address] [address] May, [facility] [place] [address] [address] May, Diabetes E11.9 ; Anxiety F41.9 ; Back pa in M54.9 and COPD (chronic obstructive pulmonary disease) J44.9 [facility] [place] [address] [address] May, Back pain M54.9 [facility] [place] [address] [address] May, [facility] [place] [address] [address] Apr, Back pain M54.9 [place] [address] [address] Mar, Back pain M54.9 [facility] [place] [address] [address] Mar, [facility] [place] [address] [address] 16 Mar, 2017 [facility] [place] [address] [address] 14 Mar, 2017 Radiculopathy of lumbar region M54.16 [facility] [place] [address] [address] 13 Mar, 2017 [facility] [place] [address] [address] 07 Mar, 2017 Encounter for immunization Z23 and Lumba r radiculopathy, chronic M54.16 [facility] [place] [address] [address] Mar, Back pain M54.9 and Anxiety F41.9 [facility] [address] [facility] [id number] [place] [address] 10 Feb, 2017 Acute bilateral low back boy n with left-sided sciatica M54.42 and Acute bilateral low back pain with right-sided sciatica M54.41 [facility] [place] [address] [address] Feb, [facility] [place] [address] [address] Feb, Back pain M54.9 [place] [address] [address] 05 Jan, 2017 Back pain M54.9 and Anxiety F41.9 [facility] [place] [address] [address] 05 Jan, 2017 Diabetes E11.9 [facility] [place] [address] [address] 14 Dec, 2016 Diabetes E11.9 ; Back pain M54.9 ; Anxie ty F41.9 and Insulin long-term use Z79.4 [place] [address] [address] Dec, Anxiety F41.9 [facility] [place] [address] [address] Dec, Back pain M54.9 [facility] [place] [address] [address] Nov, Back pain M54.9 [place] [address] [address] Oct, Back pain M54.9 and Anxiety F41.9 [facility] [place] [address] [address] September, Back pain M54.9 [facility] [place] [address] [address] 15 Sep, 2016 Back pain M54.9 and Anxiety F41.9 [place] [address] [address] Aug, Diabetes E11.9 ; Anxiety F41.9 ; Back pa in M54.9 and PAD (peripheral artery disease) I73.9 [facility] [place] [address] [address] Aug, Anxiety F41.9 [place] [address] [address] Aug, Back pain M54.9 [place] [address] [address] Jul, Back pain M54.9 [place] [address] [address] Jul, Back pain M54.9 [facility] [place] [address] [address] Jul, Back pain M54.9 [place] [address] [address] 16 Jul, 2016 Dorsalgia M54.9 [place] [address] [address] Jul, [place] [address] [address] May, Back pain M54.9 [place] [address] [address] May, Diabetes E11.9 ; Anxiety F41.9 ; Port ca theter in place Z95.828 ; Encounter for immunization Z23 and Insulin long-term use Z79.4 [place] [address] [address] Apr, Back pain M54.9 [place] [address] [address] Apr, Back pain M54.9 [facility] [place] [address] [address] Apr, [facility] [place] [address] [address] Apr, Back pain M54.9 [facility] [place] [address] [address] Mar, COPD (chronic obstructive pulmonary dise ase) J44.9 [facility] [place] [address] [address] Feb, [facility] [place] [address] [address] 30 Jan, 2016 [facility] [place] [address] [address] Jan, [facility] [place] [address] [address] Jan, [facility] [place] [address] [address] Jan, [facility] [place] [address] [address] Dec, Diabetes E11.9 ; Hypoxia R09.02 and Back pain M54.9 [facility] [place] [address] [address] Dec, [facility] [place] [address] [address] Nov, [facility] [place] [address] [address] Oct, Anxiety F41.9 [facility] [place] [address] [address] Oct, Back pain M54.9 [facility] [place] [address] [address] September, Back pain M54.9 [place] [address] [address] September, Diabetes E11.9 [place] [address] [address] September, [place] [address] [address] September, Diabetes E11.9 ; Insulin long-term use Z 79.4 and Back pain M54.9 [place] [address] [address] Aug, Back pain M54.9 [place] [address] [address] Aug, Back pain M54.9 ; Anxiety F41.9 and Arth ropathy, unspecified M12.9 [place] [address] [address] Jul, Back pain M54.9 [place] [address] [address] Jul, Anxiety F41.9 [place] [address] [address] Jul, Back pain M54.9 [place] [address] [address] Jul, [place] [address] [address] Jul, [place] [address] [address] May, Back pain M54.9 ; Diabetes E11.9 ; Insul in long-term use Z79.4 ; COPD (chronic obstructive pulmonary disease) J44.9 and Hypertension I10 [place] [address] [address] May, Chronic pain G89.29 [place] [address] [address] Apr, [facility] [id number] [place] [address] Apr, [facility] [address] [address] Mar, [facility] [address] [address] Mar, Encounter for immunization Z23 and Diabe boris E11.9 [facility] [address] [address] Feb, [facility] [address] [address] Feb, [facility] [address] [address] Jan, [facility] [address] [address] Jan, [facility] [address] [address] Dec, [facility] [address] [address] Dec, [facility] [address] [address] Dec, Unspecified arthropathy, site unspecifie d 716.90 and Diabetes mellitus type 2, uncontrolled 250.02 [facility] [address] [address] Dec, [facility] [address] [address] Nov, [facility] [place] [address] [address] Oct, [facility] [place] [address] [address] September, [facility] [place] [address] [address] September, [facility] [address] [facility] [id number] [facility] [place] [address] 18 Sep, 2014 [facility] [address] [facility] [id number] [place] [address] 11 Sep, 2014 [facility] [address] [facility] [id number] [place] [address] 14 Aug, 2014 [facility] [address] [id number] [place] [address] 13 Aug, 2014 [facility] [address] [facility] [id number] [place] [address] 18 Jul, 2014 [facility] [address] [facility] [id number] [place] [address] 18 Jul, 2014 [facility] [address] [id number] [place] [address] 16 Jul, 2014 [facility] [address] [id number] [place] [address] 16 Jul, 2014 [facility] [address] [id number] [place] [address] 16 Jul, 2014 [facility] [address] [facility] [id number] [place] [address] 16 Jul, 2014 [facility] [address] [id number] [place] [address] 16 Jul, 2014 [facility] [address] [id number] [place] [address] 16 Jul, 2014 [facility] [address] [id number] [place] [address] 16 Jul, 2014 [facility] [address] [facility] [id number] [place] [address] 13 Jul, 2014 [facility] [address] [id number] [place] [address] 13 Jul, 2014 [facility] [address] [id number] [place] [address] 09 Jul, 2014 [facility] [address] [id number] [place] [address] 09 Jul, 2014 [facility] [address] [id number] [place] [address] 17 Jul, 2014 [facility] [address] [id number] [place] [address] 17 Jul, 2014 [facility] [address] [id number] [place] [address] 16 Jul, 2014 [facility] [address] [id number] [place] [address] 16 Jul, 2014 [facility] [address] [id number] [place] [address] 16 Jul, 2014 [facility] [address] [id number] [place] [address] 16 Jul, 2014 [facility] [address] [id number] [place] [address] 16 Jul, 2014 [facility] [address] [id number] [place] [address] 16 Jul, 2014 [facility] [address] [id number] [place] [address] 16 Jul, 2014 [facility] [address] [id number] [place] [address] 16 Jul, 2014 [facility] [place] [facility] [address] [id number] [place] [address] 16 Jul, 2014 [facility] [place] [facility] [address] [id number] [place] [address] Jul, 2014 [facility] [place] [facility] [address] [id number] [place] [address] 16 Jul, 2014 [facility] [place] [facility] [address] [id number] [place] [address] Jul, 2014 [facility] [place] [facility] [address] [id number] [place] [address] 16 Jul, 2014 [facility] [place] [facility] [address] [id number] [place] [address] 16 Jul, 2014 [facility] [place] [facility] [address] [id number] [place] [address] May, [facility] [place] [facility] [address] [id number] [place] [address] May, [facility] [place] [facility] [address] [id number] [place] [address] May, [facility] [place] [facility] [address] [id number] [place] [address] May, [facility] [place] [facility] [address] [id number] [place] [address] May, [facility] [place] [facility] [address] [id number] [place] [address] May, [facility] [place] [facility] [address] [id number] [place] [address] May, [facility] [place] [facility] [address] [id number] [place] [address] May, [facility] [place] [facility] [address] [id number] [place] [address] May, [facility] [place] [facility] [address] [id number] [place] [address] May, [facility] [place] [facility] [address] [id number] [place] [address] Apr, [facility] [place] [facility] [address] [id number] [place] [address] Apr, [facility] [place] [facility] [address] [id number] [place] [address] Apr, [facility] [place] [facility] [address] [id number] [place] [address] Apr, [facility] [place] [facility] [address] [id number] [place] [address] Apr, [facility] [place] [facility] [address] [id number] [place] [address] Apr, [facility] [place] [facility] [address] [id number] [place] [address] Mar, [facility] [place] [facility] [address] [id number] [place] [address] Mar, [facility] [place] [facility] [address] [id number] [place] [address] Mar, [facility] [place] [facility] [address] [id number] [place] [address] Mar, [facility] [place] [facility] [address] [id number] [place] [address] Mar, [facility] [place] [facility] [address] [facility] [id number] [place] [address] Mar, [facility] [place] [facility] [address] [id number] [place] [address] Mar, [facility] [place] [facility] [address] [id number] [place] [address] Mar, [facility] [place] [facility] [address] [id number] [place] [address] Mar, [facility] [place] [facility] [address] [id number] [place] [address] Mar, [facility] [place] [facility] [address] [id number] [place] [address] Mar, [facility] [place] [facility] [address] [id number] [place] [address] Feb, [facility] [place] [facility] [address] [id number] [place] [address] 30 Feb, 2014 [facility] [place] [facility] [address] [id number] [place] [address] Feb, [facility] [place] [facility] [address] [id number] [place] [address] 15 Feb, 2014 [facility] [place] [facility] [address] [id number] [place] [address] Feb, [facility] [place] [facility] [address] [id number] [place] [address] Feb, [facility] [place] [facility] [address] [id number] [place] [address] Feb, [facility] [place] [facility] [address] [id number] [place] [address] Feb, [facility] [place] [facility] [address] [facility] [id number] [place] [address] Feb, [facility] [place] [facility] [address] [id number] [place] [address] Feb, [facility] [facility] [address] [facility] [id number] [place] [address] Jan, [facility] [place] [facility] [address] [id number] [place] [address] Jan, [facility] [place] [facility] [address] [id number] [place] [address] Jan, [facility] [place] [facility] [address] [id number] [place] [address] Jan, [facility] [place] [facility] [address] [id number] [place] [address] Jan, [facility] [place] [facility] [address] [id number] [place] [address] Jan, [facility] [facility] [address] [id number] [place] [address] Jan, [facility] [facility] [address] [id number] [place] [address] Dec, [facility] [place] [facility] [address] [id number] [place] [address] Dec, [facility] [place] [facility] [address] [id number] [place] [address] Dec, [facility] [place] [facility] [address] [id number] [place] [address] Dec, [facility] [place] [facility] [address] [id number] [place] [address] Dec, [facility] [address] [id number] [place] [address] Dec, [facility] [place] [facility] [address] [id number] [place] [address] Dec, [facility] [place] [facility] [address] [id number] [place] [address] Dec, [facility] [place] [facility] [address] [id number] [place] [address] Oct, [facility] [place] [facility] [address] [id number] [place] [address] Oct, [facility] [place] [facility] [address] [id number] [place] [address] September, [facility] [place] [facility] [address] [id number] [place] [address] September, [facility] [place] [facility] [address] [id number] [place] [address] September, [facility] [place] [facility] [address] [id number] [place] [address] September, [facility] [place] [facility] [address] [id number] [place] [address] September, [facility] [place] [facility] [address] [id number] [place] [address] September, [facility] [place] [facility] [address] [id number] [place] [address] September, [facility] [place] [facility] [address] [id number] [place] [address] Aug, [facility] [place] [facility] [address] [id number] [place] [address] Aug, [facility] [place] [facility] [address] [id number] [place] [address] Jul, [facility] [place] [facility] [address] [id number] [place] [address] Jul, [facility] [place] [facility] [address] [id number] [place] [address] Jul, [facility] [place] [facility] [address] [id number] [place] [address] 17 Jul, 2013 [facility] [place] [facility] [address] [id number] [place] [address] 14 Jul, 2013 [facility] [place] [facility] [address] [id number] [place] [address] 14 Jul, 2013 [facility] [place] [facility] [address] [id number] [place] [address] Jul, [facility] [place] [facility] [address] [id number] [place] [address] Jul, [facility] [place] [facility] [address] [id number] [place] [address] 15 May, 2013 [facility] [place] [facility] [address] [id number] [place] [address] 15 May, 2013 [facility] [place] [facility] [address] [id number] [place] [address] May, [facility] [place] [facility] [address] [id number] [place] [address] May, [facility] [place] [facility] [address] [id number] [place] [address] Apr, [facility] [place] [facility] [address] [id number] [place] [address] Mar, [facility] [place] [facility] [address] [id number] [place] [address] Mar, [facility] [place] [facility] [address] [id number] [place] [address] Mar, [facility] [place] [facility] [address] [id number] [place] [address] Mar, [facility] [place] [facility] [id number] [place] [address] 18 Mar, 2013 [facility] [place] [facility] [address] [id number] [place] [address] Mar, [facility] [place] [facility] [address] [id number] [place] [address] Mar, [facility] [place] [facility] [address] [id number] [place] [address] Mar, [facility] [place] [facility] [address] [id number] [place] [address] Mar, [facility] [place] [facility] [address] [id number] [place] [address] Mar, [facility] [place] [facility] [address] [id number] [place] [address] Mar, [facility] [place] [facility] [address] [id number] [place] [address] Mar, [facility] [place] [facility] [address] [id number] [place] [address] Feb, [facility] [place] [facility] [address] [id number] [place] [address] Feb, [facility] [place] [facility] [address] [id number] [place] [address] Feb, [facility] [place] [facility] [address] [id number] [place] [address] Feb, [facility] [place] [facility] [address] [id number] [place] [address] Feb, [facility] [place] [facility] [address] [id number] [place] [address] Jan, [facility] [place] [facility] [address] [id number] [place] [address] Dec, [facility] [place] [facility] [address] [id number] [place] [address] Dec, [facility] [place] [facility] [address] [id number] [place] [address] Dec, [facility] [place] [facility] [address] [id number] [place] [address] Nov, [facility] [place] [facility] [address] [id number] [place] [address] Nov, [facility] [place] [facility] [address] [id number] [place] [address] Nov, [facility] [address] [facility] [id number] [place] [address] Oct, [facility] [place] [facility] [address] [id number] [facility] [place] [address] Oct, [facility] [place] [facility] [address] [id number] [place] [address] Oct, [facility] [place] [facility] [address] [id number] [facility] [place] [address] September, [facility] [place] [facility] [address] [facility] [id number] [place] [address] September, [facility] [place] [facility] [address] [id number] [facility] [place] [address] September, [facility] [place] [facility] [address] [id number] [place] [address] September, [facility] [place] [facility] [address] [id number] [place] [address] September, [facility] [place] [facility] [address] [id number] [place] [address] Aug, [facility] [place] [facility] [address] [id number] [facility] [place] [address] Aug, [facility] [place] [facility] [address] [id number] [place] [address] Aug, [facility] [place] [facility] [address] [id number] [place] [address] Jul, [facility] [place] [facility] [address] [id number] [facility] [place] [address] Jul, [facility] [place] [facility] [address] [id number] [place] [address] Jul, [facility] [place] [facility] [address] [id number] [place] [address] Jul, [facility] [place] [facility] [address] [id number] [facility] [place] [address] Jul, [facility] [place] [facility] [address] [id number] [place] [address] Jul, [facility] [place] [facility] [address] [id number] [place] [address] Jul, [facility] [place] [facility] [address] [id number] [place] [address] May, [facility] [place] [facility] [address] [id number] [place] [address] May, [facility] [place] [facility] [address] [id number] [place] [address] May, [facility] [place] [facility] [address] [id number] [place] [address] Apr, [facility] [place] [facility] [id number] [place] [address] Apr, [facility] [place] [facility] [id number] [place] [address] Apr, [facility] [place] [facility] [id number] [place] [address] Apr, [facility] [place] [facility] [address] [id number] [place] [address] Apr, [facility] [place] [facility] [id number] [place] [address] Mar, [facility] [place] [facility] [id number] [place] [address] Mar, [facility] [place] [facility] [id number] [place] [address] Mar, [facility] [place] [facility] [address] [id number] [place] [address] 15 Mar, 2012 [facility] [place] [facility] [id number] [place] [address] Feb, [facility] [place] [facility] [address] [id number] [place] [address] Feb, [facility] [place] [facility] [id number] [place] [address] Feb, [facility] [place] [facility] [address] [id number] [place] [address] Feb, [facility] [place] [facility] [address] [id number] [place] [address] Feb, [facility] [place] [facility] [address] [id number] [place] [address] Jan, [facility] [place] [facility] [address] [id number] [place] [address] Dec, [facility] [place] [facility] [address] [id number] [place] [address] Dec, [facility] [place] [facility] [address] [id number] [place] [address] Dec, [facility] [place] [facility] [address] [id number] [place] [address] Nov, [facility] [place] [facility] [address] [id number] [place] [address] Nov, [facility] [place] [facility] [address] [id number] [place] [address] Nov, [facility] [place] [facility] [address] [id number] [place] [address] Oct, [facility] [place] [facility] [address] [id number] [place] [address] Oct, [facility] [place] [facility] [address] [id number] [place] [address] Oct, [facility] [place] [facility] [address] [id number] [place] [address] Oct, [facility] [place] [facility] [address] [id number] [place] [address] September, [facility] [place] [facility] [address] [id number] [place] [address] September, [facility] [place] [facility] [address] [id number] [place] [address] Aug, [facility] [place] [facility] [address] [id number] [place] [address] Aug, [facility] [place] [facility] [address] [id number] [place] [address] Aug, [facility] [place] [facility] [address] [id number] [place] [address] Aug, [facility] [place] [facility] [address] [id number] [place] [address] Aug, [facility] [place] [facility] [address] [id number] [place] [address] Aug, [facility] [place] [facility] [address] [id number] [place] [address] Aug, [facility] [place] [facility] [address] [id number] [place] [address] Jul, [facility] [place] [facility] [address] [id number] [place] [address] Jul, [facility] [address] [id number] [place] [address] Jul, [facility] [address] [id number] [place] [address] May, [facility] [address] [id number] [place] [address] May, [facility] [address] [id number] [place] [address] May, [facility] [address] [id number] [place] [address] Apr, [facility] [address] [id number] [place] [address] Apr, [facility] [address] [id number] [place] [address] Mar, [facility] [address] [id number] [place] [address] Mar, [facility] [address] [id number] [place] [address] Mar, [facility] [address] [id number] [place] [address] Mar, [facility] [place] [address] [id number] [place] [address] Mar, [facility] [place] [address] [id number] [place] [address] Mar, [facility] [place] [address] [id number] [place] [address] Feb, [facility] [place] [address] [id number] [place] [address] Feb, [facility] [place] [address] [id number] [place] [address] Feb, IMMUNIZATIONS No Known Immunizations SOCIAL HISTORY Never Assessed REASON FOR VISIT PLAN OF CARE VITAL SIGNS Height 72 in 2013-07-03 Weight 277 lbs 2013-07-03 Temperature 96.9 degrees Fahrenheit 2013-07-03 Heart Rate 90 bpm 2013-07-03 Respiratory Rate 24 2013-07-03 Blood pressure systolic 132 mmHg 2013-07-03 Blood pressure diastolic 90 mmHg 2013-07-03 MEDICATIONS Unknown Medications RESULTS No Results PROCEDURES Procedure Date Ordered Result Body Site GLYCATED HEMOGLOBIN TEST Jul 03, 2013 INSTRUCTIONS MEDICATIONS ADMINISTERED No Known Medications [...] foot infections x 3 2015 Hospitalization History [facility] - right big t oe removed 2018
--- OUTSIDE RECORDS SUMMARY | 2020-01-03 07:38 | XMS REPORT ---
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 Name Role Phone FERNY SILVERIO Unavailable PROBLEMS Type Condition ICD9-CM Code BLT89-AN Code Onset Dates Condition S tatus SNOMED Code Problem Hypertension I10 Active 0896448 3 Problem Hypoxia R09.02 Active 413049241 Problem COPD (chronic obstructive pulmonary disease) J44.9 Active 41592427 Problem Lumbar radiculopathy, chronic M54.16 Active 716887641 Problem halfway current use of insulin Z79.4 Active 971831399 Problem Recurrent major depressive disorder, in full remission F33.42 Active 189310659 Problem Hyperlipidemia, unspecified E78.5 Ac tive 85852913 Problem PAD (peripheral artery disease) I73.9 Active 674302358 Problem Type 2 diabetes mellitus with other specified complication E11.69 Active 737752143474 Problem Anxiety F41.9 Active 35186940 Problem Type 2 diabetes mellitus wit h diabetic peripheral angiopathy without gangrene E11.51 Active 119999801 Problem ED (erectile dysfunction) of organic origin N52.9 Active 649889679 Problem Arthritis M19.90 Active 1635922 Problem Morbid (severe) obesity due to excess calories E66 .01 Active 585433283 ALLERGIES No Known Allergies ENCOUNTERS Encounter Location Date Diagnosis [facility] [address] [facility] [id number] [place] [address] 07 Jul, 2019 Encounter for Medicare annual [...] diabetes mellitus with other specified complication E11.69 [facility] [address] [address] Jul, Back pain M54.9 [facility] [address] [address] Jul, Anxiety F41.9 [facility] [address] [address] May, [facility] [address] [address] May, Lumbar radiculopathy, chronic M54.16 [facility] [address] [address] May, Back pain M54.9 [facility] [address] [address] May, [facility] [address] [address] May, Back pain M54.9 and Anxiety F41.9 [facility] [address] [address] May, [place] [address] [address] May, Type 2 diabetes mellitus with diabetic p eripheral angiopathy without gangrene E11.51 ; Arthritis M19.90 ; ED (erectile dysfunction) of organic origin N52.9 ; Morbid (severe) obesity due to excess calories E66.01 and Lumbar radiculopathy, chronic M54.16 [facility] [address] [address] May, Diabetes E11.9 [facility] [address] [address] Apr, [facility] [address] [address] Apr, Back pain M54.9 [facility] [address] [address] Apr, [facility] [address] [address] Apr, Anxiety F41.9 [facility] [address] [address] Apr, Back pain M54.9 and Lumbar radiculopathy , chronic M54.16 [facility] [address] [address] Apr, Back pain M54.9 ; Anxiety F41.9 and Lumb ar radiculopathy, chronic M54.16 [facility] [address] [address] Mar, [facility] [address] [address] Mar, [place] [address] [address] Mar, Back pain M54.9 [facility] [address] [address] Mar, [place] [address] [address] Feb, Type 2 diabetes mellitus with diabetic p eripheral angiopathy without gangrene E11.51 ; Lumbar radiculopathy, chronic M54.16 ; ED (erectile dysfunction) of organic origin N52.9 ; Encounter for immunization Z23 ; COPD (chronic obstructive pulmonary disease) J44.9 and Anxiety F41.9 [facility] [address] [address] Feb, Back pain M54.9 [facility] [address] [address] Feb, [facility] [address] [address] Feb, [facility] [address] [address] Feb, [facility] [address] [address] Feb, Back pain M54.9 [facility] [address] [address] Feb, [facility] [address] [address] Jan, Anxiety F41.9 [facility] [address] [address] Jan, Anxiety F41.9 [facility] [address] [address] Jan, [facility] [address] [address] Jan, [facility] [address] [address] Jan, Back pain M54.9 [facility] [address] [address] Jan, [facility] [address] [address] Dec, Acute non-recurrent frontal sinusitis J0 1.10 [facility] [address] [address] Dec, Acute non-recurrent frontal sinusitis J0 1.10 [facility] [address] [address] Dec, Type 2 diabetes mellitus with diabetic p eripheral angiopathy without gangrene E11.51 ; Lumbar radiculopathy, chronic M54.16 ; Recurrent major depressive disorder, in full remission F33.42 and Anxiety F41.9 [facility] [address] [address] Dec, [facility] [address] [address] Nov, Anxiety F41.9 [facility] [address] [id number] [place] [address] Nov, [facility] [address] [id number] [place] [address] Nov, Back pain M54.9 [facility] [address] [id number] [place] [address] Nov, [facility] [address] [id number] [place] [address] Nov, Back pain M54.9 [facility] [address] [id number] [place] [address] Nov, Anxiety F41.9 [facility] [address] [id number] [place] [address] Nov, [facility] [address] [id number] [place] [address] Oct, Back pain M54.[address] [facility] [address] [id number] [place] [address] Oct, [facility] [address] [id number] [place] [address] Oct, [facility] [address] [id number] [place] [address] Oct, [facility] [address] [id number] [place] [address] September, Back pain M54.[address] [facility] [address] [id number] [place] [address] September, [facility] [address] [id number] [place] [address] September, [facility] [address] [id number] [place] [address] September, [facility] [address] [id number] [place] [address] Aug, Back pain M54.9 [facility] [address] [address] 17 Aug, 2018 Anxiety F41.9 [place] [address] [address] Aug, [place] [address] [address] Aug, Pressure ulcer of other site, stage 3 L8 9.893 and COPD (chronic obstructive pulmonary disease) J44.9 [place] [address] [address] Aug, History of smoking Z87.891 [place] [address] [address] Jul, Type 2 diabetes mellitus with diabetic p eripheral angiopathy without gangrene E11.51 [place] [address] [address] Jul, Back pain M54.9 [place] [address] [address] Jul, Anxiety F41.9 [place] [address] [address] 18 Jul, 2018 [place] [address] [address] Jul, Back pain M54.9 [place] [address] [address] Jul, Back pain M54.9 [place] [address] [address] Jul, Lumbar radiculopathy, chronic M54.16 ; H ypertension I10 and Type 2 diabetes mellitus with diabetic peripheral angiopathy without gangrene E11.51 [place] [address] [address] Jul, Back pain M54.9 [place] [address] [address] Jul, Back pain M54.9 and Anxiety F41.9 [facility] [address] [address] Jul, [facility] [address] [address] May, Back pain M54.9 and Anxiety F41.9 [place] [address] [address] May, [facility] [address] [address] Apr, Radiculopathy of lumbar region M54.16 ; Back pain M54.9 and Anxiety F41.9 [place] [address] [address] Apr, Diabetes E11.9 ; Muscle spasm M62.838 an d Lumbar radiculopathy, chronic M54.16 [place] [address] [address] Apr, [facility] [address] [address] Apr, [facility] [address] [address] Mar, Back pain M54.9 and Anxiety F41.9 [place] [address] [address] Mar, [facility] [address] [address] Mar, [facility] [address] [address] Mar, [place] [address] [address] Mar, Encounter for immunization Z23 [facility] [address] [address] Feb, Back pain M54.9 and Anxiety F41.9 [facility] [address] [address] Feb, Back pain M54.9 and Anxiety F41.9 [facility] [address] [address] Jan, Back pain M54.9 and Anxiety F41.9 [facility] [address] [address] Jan, [facility] [address] [address] Dec, [facility] [address] [address] Dec, Back pain M54.9 and Anxiety F41.9 [place] [address] [address] Dec, Diabetes E11.9 ; Type 2 diabetes mellitu s with diabetic peripheral angiopathy without gangrene E11.51 ; Lumbar radiculopathy, chronic M54.16 ; COPD (chronic obstructive pulmonary disease) J44.9 and Anxiety F41.9 [place] [address] [address] Dec, Back pain M54.9 and Anxiety F41.9 [place] [address] [address] Nov, Back pain M54.9 and Anxiety F41.9 [place] [address] [address] Oct, [facility] [address] [address] Oct, Back pain M54.9 and Anxiety F41.9 [place] [address] [address] September, Anxiety F41.9 and Back pain M54.9 [place] [address] [address] September, Diabetes E11.9 ; Hypertension I10 ; COPD (chronic obstructive pulmonary disease) J44.9 and Lumbar radiculopathy, chronic M54.16 [place] [address] [address] September, Anxiety F41.9 [place] [address] [address] Aug, [place] [address] [address] Aug, [place] [address] [address] Aug, Anxiety F41.9 and Back pain M54.9 [place] [address] [address] Aug, Medicare annual wellness visit, initial Z00.00 [...] and halfway current use of insulin Z79.4 [place] [address] [address] Jul, Back pain M54.9 [place] [address] [address] Jul, [place] [address] [address] Jul, Anxiety F41.9 and Back pain M54.9 [place] [address] [address] Jul, Diabetes E11.9 [place] [address] [address] May, [place] [address] [address] May, Diabetes E11.9 ; Anxiety F41.9 ; Back pa in M54.9 and COPD (chronic obstructive pulmonary disease) J44.9 [place] [address] [address] May, Back pain M54.9 [facility] [address] [address] May, [place] [address] [address] Apr, Back pain M54.9 [place] [address] [address] Mar, Back pain M54.9 [place] [address] [address] Mar, [place] [address] [address] Mar, [place] [address] [address] 14 Mar, 2017 Radiculopathy of lumbar region M54.16 [place] [address] [address] Mar, [place] [address] [address] 07 Mar, 2017 Encounter for immunization Z23 and Lumba r radiculopathy, chronic M54.16 [place] [address] [address] Mar, Back pain M54.9 and Anxiety F41.9 [facility] [address] [facility] [id number] [place] [address] 10 Feb, 2017 Acute bilateral low back boy n with left-sided sciatica M54.42 and Acute bilateral low back pain with right-sided sciatica M54.41 [place] [address] [address] Feb, [facility] [address] [address] Feb, Back pain M54.9 [facility] [address] [address] 05 Jan, 2017 Back pain M54.9 and Anxiety F41.9 [facility] [address] [address] 05 Jan, 2017 Diabetes E11.9 [place] [address] [address] Dec, Diabetes E11.9 ; Back pain M54.9 ; Anxie ty F41.9 and Insulin long-term use Z79.4 [place] [address] [address] Dec, Anxiety F41.9 [place] [address] [address] Dec, Back pain M54.9 [place] [address] [address] Nov, Back pain M54.9 [place] [address] [address] Oct, Back pain M54.9 and Anxiety F41.9 [place] [address] [address] September, Back pain M54.9 [place] [address] [address] September, Back pain M54.9 and Anxiety F41.9 [place] [address] [address] Aug, Diabetes E11.9 ; Anxiety F41.9 ; Back pa in M54.9 and PAD (peripheral artery disease) I73.9 [facility] [address] [address] Aug, Anxiety F41.9 [place] [address] [address] 14 Aug, 2016 Back pain M54.9 [facility] [address] [address] Jul, Back pain M54.9 [facility] [address] [address] Jul, Back pain M54.9 [facility] [address] [address] Jul, Back pain M54.9 [facility] [address] [address] 16 Jul, 2016 Dorsalgia M54.9 [facility] [address] [address] Jul, [place] [address] [address] May, Back pain M54.9 [facility] [address] [address] May, Diabetes E11.9 ; Anxiety F41.9 ; Port ca theter in place Z95.828 ; Encounter for immunization Z23 and Insulin long-term use Z79.4 [place] [address] [address] Apr, Back pain M54.9 [facility] [address] [address] Apr, Back pain M54.9 [facility] [address] [address] Apr, [facility] [address] [address] Apr, Back pain M54.9 [facility] [address] [address] Mar, COPD (chronic obstructive pulmonary dise ase) J44.9 [facility] [address] [place] [address] [place] [address] Feb, [facility] [address] [address] 30 Jan, 2016 [facility] [address] [address] 20 Jan, 2016 [facility] [address] [address] Jan, [facility] [address] [address] Jan, [facility] [address] [address] Dec, Diabetes E11.9 ; Hypoxia R09.02 and Back pain M54.9 [facility] [address] [address] Dec, [facility] [address] [address] Nov, [facility] [address] [address] Oct, Anxiety F41.9 [facility] [address] [address] Oct, Back pain M54.9 [facility] [address] [address] September, Back pain M54.9 [facility] [address] [address] September, Diabetes E11.9 [facility] [address] [address] September, [facility] [address] [address] September, Diabetes E11.9 ; Insulin long-term use Z 79.4 and Back pain M54.9 [facility] [address] [address] Aug, Back pain M54.9 [facility] [address] [address] Aug, Back pain M54.9 ; Anxiety F41.9 and Arth ropathy, unspecified M12.9 [facility] [address] [address] Jul, Back pain M54.9 [facility] [address] [address] Jul, Anxiety F41.9 [facility] [address] [address] Jul, Back pain M54.9 [place] [address] [address] Jul, [place] [address] [address] Jul, [place] [address] [address] May, Back pain M54.9 ; Diabetes E11.9 ; Insul in long-term use Z79.4 ; COPD (chronic obstructive pulmonary disease) J44.9 and Hypertension I10 [place] [address] [address] May, Chronic pain G89.29 [place] [address] [address] Apr, [place] [address] [address] Apr, [place] [address] [address] Mar, [place] [address] [address] Mar, Encounter for immunization Z23 and Diabe boris E11.9 [facility] [address] [address] Feb, [place] [address] [place] [id number] [place] [address] Feb, [facility] [address] [place] [id number] [place] [address] Jan, [facility] [address] [place] [id number] [place] [address] Jan, [facility] [address] [place] [id number] [place] [address] Dec, [facility] [address] [place] [id number] [place] [address] Dec, [facility] [address] [place] [id number] [place] [address] Dec, Unspecified arthropathy, site unspecifie d 716.90 and Diabetes mellitus type 2, uncontrolled 250.02 [facility] [address] [place] [id number] [place] [address] Dec, [facility] [address] [place] [id number] [place] [address] Nov, [facility] [address] [place] [id number] [place] [address] Oct, [facility] [address] [place] [id number] [place] [address] September, [facility] [address] [id number] [place] [address] September, [facility] [address] [place] [id number] [place] [address] September, [facility] [address] [place] [id number] [place] [address] September, [facility] [address] [place] [id number] [place] [address] 14 Aug, 2014 [facility] [address] [place] [id number] [place] [address] Aug, [facility] [address] [place] [id number] [place] [address] Jul, [facility] [address] [facility] [id number] [place] [address] 18 Jul, 2014 [facility] [address] [id number] [place] [address] 16 Jul, 2014 [facility] [address] [facility] [id number] [place] [address] 16 Jul, 2014 [facility] [address] [id number] [place] [address] 16 Jul, 2014 [facility] [address] [facility] [id number] [place] [address] 16 Jul, 2014 [facility] [address] [id number] [place] [address] 16 Jul, 2014 [facility] [address] [id number] [place] [address] 16 Jul, 2014 [facility] [address] [id number] [place] [address] 16 Jul, 2014 [facility] [address] [id number] [place] [address] Jul, 2014 [facility] [address] [id number] [place] [address] 13 Jul, 2014 [facility] [address] [id number] [place] [address] 09 Jul, 2014 [facility] [address] [id number] [place] [address] 09 Jul, 2014 [facility] [address] [id number] [place] [address] 17 Jul, 2014 [facility] [address] [facility] [id number] [place] [address] 17 Jul, 2014 [facility] [address] [id number] [place] [address] 16 Jul, 2014 [facility] [address] [id number] [place] [address] 16 Jul, 2014 [facility] [address] [id number] [place] [address] 16 Jul, 2014 [facility] [address] [facility] [id number] [place] [address] Jul, 2014 [facility] [address] [id number] [place] [address] Jul, 2014 [facility] [address] [id number] [place] [address] Jul, 2014 [facility] [address] [id number] [place] [address] Jul, 2014 [facility] [address] [id number] [place] [address] Jul, 2014 [facility] [address] [id number] [place] [address] Jul, 2014 [facility] [address] [id number] [place] [address] Jul, 2014 [facility] [address] [id number] [place] [address] Jul, 2014 [facility] [address] [id number] [place] [address] Jul, 2014 [facility] [address] [id number] [place] [address] Jul, 2014 [facility] [address] [id number] [place] [address] Jul, [facility] [address] [id number] [place] [address] May, [facility] [address] [id number] [place] [address] May, [facility] [address] [id number] [place] [address] May, [facility] [address] [id number] [place] [address] May, [facility] [address] [id number] [place] [address] May, [facility] [address] [id number] [place] [address] May, [facility] [address] [id number] [place] [address] May, [facility] [address] [id number] [place] [address] May, [facility] [address] [id number] [place] [address] May, [facility] [address] [id number] [place] [address] May, [facility] [address] [id number] [place] [address] Apr, [facility] [address] [id number] [place] [address] Apr, [facility] [address] [id number] [place] [address] Apr, [facility] [address] [id number] [place] [address] Apr, [facility] [address] [id number] [place] [address] Apr, [facility] [address] [id number] [place] [address] Apr, [facility] [address] [id number] [place] [address] Mar, [facility] [address] [id number] [place] [address] Mar, [facility] [address] [id number] [place] [address] Mar, [facility] [address] [id number] [place] [address] Mar, [facility] [address] [id number] [place] [address] Mar, [facility] [address] [id number] [place] [address] Mar, [facility] [address] [facility] [id number] [place] [address] Mar, [facility] [address] [id number] [place] [address] Mar, [facility] [address] [id number] [place] [address] Mar, [facility] [address] [id number] [place] [address] Mar, [facility] [address] [id number] [place], [place] [address] Mar, [facility] [place] [facility] [address] [id number] [place] [address] Feb, [facility] [place] [facility] [address] [id number] [place] [address] Feb, [facility] [place] [facility] [address] [id number] [place] [address] Feb, [facility] [place] [facility] [address] [id number] [place] [address] Feb, [facility] [place] [facility] [address] [id number] [place] [address] Feb, [facility] [place] [facility] [address] [id number] [place] [address] Feb, [facility] [place] [facility] [address] [id number] [place] [address] Feb, [facility] [place] [facility] [address] [id number] [place] [address] Feb, [facility] [place] [facility] [address] [id number] [place] [address] Feb, [facility] [place] [facility] [address] [id number] [place] [address] Feb, [facility] [place] [facility] [address] [id number] [place] [address] Jan, [facility] [place] [facility] [address] [id number] [place] [address] 22 Jan, 2014 [facility] [place] [facility] [address] [facility] [id number] [place] [address] 16 Jan, 2014 [facility] [place] [facility] [address] [facility] [id number] [place] [address] 16 Jan, 2014 [facility] [place] [facility] [address] [id number] [place] [address] Jan, [facility] [place] [facility] [address] [facility] [id number] [place] [address] Jan, [facility] [place] [facility] [address] [facility] [id number] [place] [address] Jan, [facility] [place] [facility] [address] [id number] [place] [address] Dec, [facility] [place] [facility] [address] [id number] [place] [address] Dec, [facility] [place] [facility] [address] [id number] [place] [address] Dec, [facility] [place] [facility] [address] [id number] [place] [address] Dec, [facility] [place] [facility] [address] [id number] [place] [address] Dec, [facility] [place] [facility] [address] [id number] [place] [address] Dec, [facility] [place] [facility] [address] [id number] [place] [address] Dec, [facility] [place] [facility] [address] [facility] [id number] [place] [address] Dec, [facility] [place] [facility] [address] [id number] [place] [address] Oct, [facility] [place] [facility] [address] [id number] [place] [address] Oct, [facility] [place] [facility] [address] [id number] [place] [address] September, [facility] [place] [facility] [address] [id number] [place] [address] September, [facility] [place] [facility] [address] [id number] [place] [address] September, [facility] [place] [facility] [address] [id number] [place] [address] September, [facility] [place] [facility] [address] [id number] [place] [address] September, [facility] [place] [facility] [address] [facility] [id number] [place] [address] September, [facility] [place] [facility] [address] [id number] [place] [address] September, [facility] [place] [facility] [address] [id number] [place] [address] Aug, [facility] [place] [facility] [address] [id number] [place] [address] Aug, [facility] [place] [facility] [address] [id number] [place] [address] Jul, [facility] [place] [facility] [address] [id number] [place] [address] Jul, [facility] [place] [facility] [address] [id number] [place] [address] Jul, [facility] [place] [facility] [address] [id number] [place] [address] Jul, [facility] [place] [facility] [address] [id number] [place] [address] Jul, [facility] [place] [facility] [address] [id number] [place] [address] Jul, [facility] [place] [facility] [address] [id number] [place] [address] Jul, [facility] [place] [facility] [address] [id number] [place] [address] Jul, [facility] [place] [facility] [address] [id number] [place] [address] 15 May, 2013 [facility] [place] [facility] [address] [id number] [place] [address] 15 May, 2013 [facility] [place] [facility] [address] [id number] [place] [address] 14 May, 2013 [facility] [place] [facility] [address] [id number] [place] [address] 14 May, 2013 [facility] [place] [facility] [address] [id number] [place] [address] 18 Apr, 2013 [facility] [place] [facility] [address] [id number] [place] [address] Mar, [facility] [place] [facility] [address] [id number] [place] [address] Mar, [facility] [place] [facility] [address] [id number] [place] [address] Mar, [facility] [place] [facility] [address] [id number] [place] [address] Mar, [facility] [place] [facility] [address] [id number] [place] [address] Mar, [facility] [place] [facility] [address] [id number] [place] [address] Mar, [facility] [place] [facility] [address] [id number] [place] [address] 18 Mar, 2013 [facility] [place] [facility] [address] [id number] [place] [address] 18 Mar, 2013 [facility] [place] [facility] [address] [id number] [place] [address] Mar, [facility] [place] [facility] [address] [id number] [place] [address] Mar, [facility] [place] [facility] [address] [id number] [place] [address] Mar, [facility] [place] [facility] [address] [id number] [place] [address] Mar, [facility] [place] [facility] [address] [id number] [place] [address] Feb, [facility] [place] [facility] [address] [id number] [place] [address] Feb, [facility] [place] [facility] [address] [id number] [place] [address] Feb, [facility] [place] [facility] [address] [id number] [place] [address] Feb, [facility] [place] [facility] [address] [facility] [id number] [place] [address] Feb, [facility] [place] [facility] [address] [id number] [place] [address] Jan, [facility] [place] [facility] [address] [id number] [place] [address] Dec, [facility] [place] [facility] [address] [id number] [place] [address] Dec, [facility] [place] [facility] [address] [id number] [place] [address] Dec, [facility] [place] [facility] [address] [id number] [place] [address] Nov, [facility] [place] [facility] [address] [id number] [place] [address] Nov, [facility] [place] [facility] [address] [id number] [place] [address] Nov, [facility] [place] [facility] [address] [id number] [place] [address] Oct, [facility] [place] [facility] [address] [id number] [place] [address] Oct, [facility] [place] [facility] [address] [id number] [place] [address] Oct, [facility] [place] [facility] [address] [id number] [place] [address] September, [facility] [place] [facility] [address] [id number] [place] [address] September, [facility] [address] [id number] [facility] [place] [address] September, [facility] [place] [facility] [address] [id number] [facility] [place] [address] September, [facility] [place] [facility] [address] [id number] [facility] [place] [address] September, [facility] [place] [facility] [address] [id number] [place] [address] Aug, [facility] [place] [facility] [address] [id number] [place] [address] Aug, [facility] [place] [facility] [address] [id number] [facility] [place] [address] Aug, [facility] [place] [facility] [address] [id number] [facility] [place] [address] Jul, [facility] [place] [facility] [address] [id number] [facility] [place] [address] Jul, [facility] [place] [facility] [address] [id number] [facility] [place] [address] Jul, [facility] [place] [facility] [address] [id number] [place] [address] Jul, [facility] [place] [facility] [address] [id number] [place] [address] Jul, [facility] [place] [facility] [address] [id number] [place] [address] Jul, [facility] [place] [facility] [address] [id number] [facility] [place] [address] Jul, [facility] [place] [facility] [address] [id number] [place] [address] May, [facility] [place] [facility] [address] [id number] [place] [address] May, [facility] [place] [facility] [address] [id number] [place] [address] May, [facility] [place] [facility] [address] [id number] [place] [address] Apr, [facility] [place] [facility] [address] [id number] [place] [address] Apr, [facility] [place] [facility] [address] [id number] [place] [address] Apr, [facility] [place] [facility] [address] [id number] [place] [address] Apr, [facility] [place] [facility] [address] [id number] [place] [address] Apr, [facility] [place] [facility] [address] [id number] [place] [address] Mar, [facility] [place] [facility] [address] [id number] [place] [address] Mar, [facility] [place] [facility] [id number] [place] [address] Mar, [facility] [place] [facility] [address] [id number] [place] [address] Mar, [facility] [place] [facility] [address] [id number] [place] [address] Feb, [facility] [place] [facility] [address] [id number] [place] [address] Feb, [facility] [place] [facility] [address] [id number] [place] [address] Feb, [facility] [place] [facility] [address] [id number] [place] [address] Feb, [facility] [place] [facility] [address] [id number] [place] [address] Feb, [facility] [place] [facility] [id number] [place] [address] Jan, [facility] [place] [facility] [address] [id number] [place] [address] Dec, [facility] [place] [facility] [address] [id number] [place] [address] Dec, [facility] [place] [facility] [address] [id number] [place] [address] Dec, [facility] [place] [facility] [address] [id number] [place] [address] Nov, [facility] [place] [facility] [address] [id number] [place] [address] Nov, [facility] [place] [facility] [address] [id number] [place] [address] Nov, [facility] [place] [facility] [address] [facility] [id number] [place] [address] Oct, [facility] [place] [facility] [address] [id number] [place] [address] Oct, [facility] [place] [facility] [address] [id number] [place] [address] Oct, [facility] [place] [facility] [address] [id number] [place] [address] Oct, [facility] [place] [facility] [address] [id number] [place] [address] September, [facility] [place] [facility] [address] [id number] [place] [address] September, [facility] [place] [facility] [address] [id number] [place] [address] 30 Aug, 2011 [facility] [place] [facility] [address] [id number] [place] [address] Aug, [facility] [place] [facility] [address] [id number] [place] [address] 10 Aug, 2011 [facility] [place] [facility] [address] [id number] [place] [address] 09 Aug, 2011 [facility] [place] [facility] [address] [id number] [place] [address] 06 Aug, 2011 [facility] [place] [facility] [address] [id number] [place] [address] 05 Aug, 2011 [facility] [place] [facility] [address] [id number] [place] [address] 05 Aug, 2011 [facility] [place] [facility] [address] [id number] [place] [address] Jul, [facility] [place] [facility] [address] [id number] [place] [address] Jul, [facility] [place] [facility] [address] [id number] [place] [address] Jul, [facility] [place] [facility] [address] [id number] [place] [address] May, [facility] [place] [facility] [address] [id number] [place] [address] May, [facility] [place] [facility] [id number] [place] [address] May, [facility] [place] [facility] [id number] [place] [address] Apr, [facility] [place] [facility] [id number] [place] [address] Apr, [facility] [place] [facility] [address] [id number] [place] [address] Mar, [facility] [place] [facility] [id number] [place] [address] Mar, [facility] [place] [facility] [address] [id number] [place] [address] Mar, [facility] [place] [facility] [id number] [place] [address] Mar, [facility] [place] [facility] [address] [id number] [place] [address] Mar, [facility] [place] [facility] [id number] [place] [address] Mar, [facility] [place] [facility] [address] [id number] [place] [address] Feb, [facility] [place] [facility] [address] [id number] [place] [address] Feb, [facility] [place] [facility] [address] [facility] [id number] [place] [address] 14 Feb, 2011 IMMUNIZATIONS No Known Immunizations SOCIAL HISTORY Never Assessed REASON FOR VISIT Hypertension- pt states he is having no problems - wont need refill till end of month on medication- laz batista PLAN OF CARE Activity Details Follow Up 3 Months Reason: VITAL SIGNS Height 72 in 2018-08-08 Weight 264.7 lbs 2018-08-08 Temperature 99.5 degrees Fahrenheit 2018-08-08 Heart Rate 83 bpm 2018-08-08 Respiratory Rate 20 2018-08-08 BMI 35.9 kg/m2 2018-08-08 Blood pressure systolic 138 mmHg 2018-08-08 Blood pressure diastolic 72 mmHg 2018-08-08 MEDICATIONS Medication Instructions Dosage Frequency Start Date End Date Duration S tatus Oxygen 2 LPM inhalation at night while sleeping Active Blood Glucose Test Strip as directed Mar, Active AgaMatrix Presto Test - TEST BLOOD SUGAR TWO TIMES A DAY . E1 1.9 Active Celexa 40 TAKE ONE TABLET BY MOUTH DAILY 90 Active Ketorolac Tromethamine 10 MG Orally every 6 hrs 1 tablet wi th food or milk as needed 6h Apr, 3 days Active Atorvastatin Calcium 40 MG TAKE ONE TABLET BY MOUTH ONCE DAILY 30 Active Cymbalta 60 TAKE ONE CAPSULE BY MOUTH ONCE A DAY 90 Active Soma 350 mg Orally Once a day 1 tablet as needed 24h 28 days Active Lopid 600 MG TAKE ONE TABLET BY MOUTH TWICE A DAY Active Remeron 30 mg TAKE ONE TABLET BY MOUTH EVERY NIGHT AT BEDTIME 90 Active Tresiba FlexTouch 200 UNIT/ML Subcutaneous Once a day 160 u 24h 56 Active MS Contin 15 MG Orally every 8 hours 1 tablet 8h Jul, 28 days Active Metformin HCl 1000 MG TAKE ONE TABLET BY MOUTH WITH MORNING AND WITH EVENING MEALS TWO TIMES A DAY Active Hydrocodone-Acetaminophen 10-325 MG Orally every 6 hrs 1 tablet as needed 6h Jul, 28 days Active MS Contin 30 MG Orally every 8 hours 1 tablet 8h May, 28 days Active Metformin HCl 1,000 TAKE ONE TABLET BY M OUTH WITH MORNING AND WITH EVENING MEALS TWO TIMES A DAY 90 Active Amlodipine Besylate 10 MG TAKE ONE TABLET BY MOUTH ONCE DAILY 30 Active Bactrim DS 800-160 MG Orally Twice a day 1 tablet 12h Active Mirtazapine 30 MG TAKE ONE TABLET BY MOUTH EVERY NIGHT AT BEDTIM E Active Celexa 40 MG TAKE ONE TABLET BY MOUTH DAILY 60 Active NovoLog Flexpen 100 UNIT/ML Subcutaneous 3 times a day with meals 3 0 units May, Active Albuterol Sulfate (2.5 MG/3ML) 0.083% Inhalation Three times a day 3 ml 8h May, Active Cymbalta 60 MG TAKE ONE CAPSULE BY MOUTH ONCE A DAY Active Lyrica 225 mg Orally Twice a day 1 capsule 12h 30 Active Xanax 2 MG Orally 4 times a day PRN 1/2 tablet May, 28 days Active Lopid 600 TAKE ONE TABLET BY MOUTH TWICE A DAY 90 Active RESULTS No Results PROCEDURES No [...] infections x 3 2015 Hospitalization History [facility] - right big t oe removed 2018
--- OUTSIDE RECORDS SUMMARY | 2020-01-03 07:38 | XMS REPORT ---
Author Author Tra SILVERIO Organization [facility] Address [address] [place] [address] Care Team Providers Care Health And Wellness Director Name Role Phone FERNY SILVERIO Unavailable PROBLEMS Type Condition ICD9-CM Code AND98-IF Code Onset Dates Condition S tatus SNOMED Code Problem Hypertension I10 Active 0706463 3 Problem Hypoxia R09.02 Active 751559952 Problem COPD (chronic obstructive pulmonary disease) J44.9 Active 19442643 Problem Lumbar radiculopathy, chronic M54.16 Active 852708815 Problem MCC current use of insulin Z79.4 Active 485266962 Problem Recurrent major depressive disorder, in full remission F33.42 Active 014222499 Problem Hyperlipidemia, unspecified E78.5 Ac tive 53544757 Problem PAD (peripheral artery disease) I73.9 Active 230003477 Problem Type 2 diabetes mellitus with other specified complication E11.69 Active 769247331482 Problem Anxiety F41.9 Active 13580137 Problem Type 2 diabetes mellitus wit h diabetic peripheral angiopathy without gangrene E11.51 Active 766682400 Problem ED (erectile dysfunction) of organic origin N52.9 Active 186001962 Problem Arthritis M19.90 Active 0853415 Problem Morbid (severe) obesity due to excess calories E66 .01 Active 548059675 ALLERGIES No Information ENCOUNTERS Encounter Location Date Diagnosis [facility] [address] [facility] [id number] [place] [address] 07 Jul, 2019 Encounter for Medicare annual [...] diabetes mellitus with other specified complication E11.69 [facility] [address] [address] Jul, Back pain M54.9 [facility] [address] [address] Jul, Anxiety F41.9 [facility] [address] [address] May, [facility] [address] [address] May, Lumbar radiculopathy, chronic M54.16 [facility] [address] [address] May, Back pain M54.9 [facility] [address] [address] May, [facility] [address] [address] May, Back pain M54.9 and Anxiety F41.9 [facility] [address] [address] May, [place] [address] [address] May, Type 2 diabetes mellitus with diabetic p eripheral angiopathy without gangrene E11.51 ; Arthritis M19.90 ; ED (erectile dysfunction) of organic origin N52.9 ; Morbid (severe) obesity due to excess calories E66.01 and Lumbar radiculopathy, chronic M54.16 [facility] [address] [address] May, Diabetes E11.9 [facility] [address] [address] Apr, [facility] [address] [address] Apr, Back pain M54.9 [facility] [address] [address] Apr, [facility] [address] [address] Apr, Anxiety F41.9 [facility] [address] [address] Apr, Back pain M54.9 and Lumbar radiculopathy , chronic M54.16 [facility] [address] [address] Apr, Back pain M54.9 ; Anxiety F41.9 and Lumb ar radiculopathy, chronic M54.16 [facility] [address] [address] Mar, [facility] [address] [address] Mar, [place] [address] [address] Mar, Back pain M54.9 [facility] [address] [address] Mar, [place] [address] [address] Feb, Type 2 diabetes mellitus with diabetic p eripheral angiopathy without gangrene E11.51 ; Lumbar radiculopathy, chronic M54.16 ; ED (erectile dysfunction) of organic origin N52.9 ; Encounter for immunization Z23 ; COPD (chronic obstructive pulmonary disease) J44.9 and Anxiety F41.9 [facility] [address] [address] Feb, Back pain M54.9 [facility] [address] [address] Feb, [facility] [address] [address] Feb, [facility] [address] [address] Feb, [facility] [address] [address] Feb, Back pain M54.9 [facility] [address] [address] Feb, [facility] [address] [address] Jan, Anxiety F41.9 [facility] [address] [address] Jan, Anxiety F41.9 [facility] [address] [address] Jan, [facility] [address] [address] Jan, [facility] [address] [address] Jan, Back pain M54.9 [facility] [address] [address] Jan, [facility] [address] [address] Dec, Acute non-recurrent frontal sinusitis J0 1.10 [facility] [address] [address] Dec, Acute non-recurrent frontal sinusitis J0 1.10 [facility] [address] [address] Dec, Type 2 diabetes mellitus with diabetic p eripheral angiopathy without gangrene E11.51 ; Lumbar radiculopathy, chronic M54.16 ; Recurrent major depressive disorder, in full remission F33.42 and Anxiety F41.9 [facility] [address] [address] Dec, [facility] [address] [address] Nov, Anxiety F41.9 [facility] [address] [id number] [place] [address] Nov, [facility] [address] [place] [id number] [place] [address] Nov, Back pain M54.9 [facility] [address] [id number] [place] [address] Nov, [facility] [address] [address] [id number] [place] [address] Nov, Back pain M54.9 [facility] [address] [id number] [place] [address] Nov, Anxiety F41.9 [facility] [address] [id number] [place] [address] Nov, [facility] [id number] [place] [address] Oct, Back pain M54.9 [facility] [id number] [place] [address] Oct, [facility] [address] [id number] [place] [address] Oct, [facility] [id number] [place] [address] Oct, [facility] [id number] [place] [address] September, Back pain M54.9 [facility] [id number] [place] [address] September, [facility] [address] [id number] [place] [address] September, [facility] [id number] [place] [address] September, [facility] [address] [id number] [place] [address] Aug, Back pain M54.9 [facility] [address] [address] 17 Aug, 2018 Anxiety F41.9 [place] [address] [address] Aug, [place] [address] [address] Aug, Pressure ulcer of other site, stage 3 L8 9.893 and COPD (chronic obstructive pulmonary disease) J44.9 [place] [address] [address] Aug, History of smoking Z87.891 [place] [address] [address] Jul, Type 2 diabetes mellitus with diabetic p eripheral angiopathy without gangrene E11.51 [place] [address] [address] Jul, Back pain M54.9 [place] [address] [address] Jul, Anxiety F41.9 [place] [address] [address] 18 Jul, 2018 [place] [address] [address] Jul, Back pain M54.9 [place] [address] [address] Jul, Back pain M54.9 [place] [address] [address] Jul, Lumbar radiculopathy, chronic M54.16 ; H ypertension I10 and Type 2 diabetes mellitus with diabetic peripheral angiopathy without gangrene E11.51 [place] [address] [address] Jul, Back pain M54.9 [place] [address] [address] Jul, Back pain M54.9 and Anxiety F41.9 [facility] [address] [address] Jul, [facility] [address] [address] May, Back pain M54.9 and Anxiety F41.9 [place] [address] [address] May, [facility] [address] [address] Apr, Radiculopathy of lumbar region M54.16 ; Back pain M54.9 and Anxiety F41.9 [place] [address] [address] Apr, Diabetes E11.9 ; Muscle spasm M62.838 an d Lumbar radiculopathy, chronic M54.16 [place] [address] [address] Apr, [facility] [address] [address] Apr, [facility] [address] [address] Mar, Back pain M54.9 and Anxiety F41.9 [place] [address] [address] Mar, [facility] [address] [address] Mar, [facility] [address] [address] Mar, [place] [address] [address] Mar, Encounter for immunization Z23 [facility] [address] [address] Feb, Back pain M54.9 and Anxiety F41.9 [facility] [address] [address] Feb, Back pain M54.9 and Anxiety F41.9 [facility] [address] [address] Jan, Back pain M54.9 and Anxiety F41.9 [facility] [address] [address] Jan, [facility] [address] [address] Dec, [facility] [address] [address] Dec, Back pain M54.9 and Anxiety F41.9 [facility] [address] [address] Dec, Diabetes E11.9 ; Type 2 diabetes mellitu s with diabetic peripheral angiopathy without gangrene E11.51 ; Lumbar radiculopathy, chronic M54.16 ; COPD (chronic obstructive pulmonary disease) J44.9 and Anxiety F41.9 [place] [address] [address] Dec, Back pain M54.9 and Anxiety F41.9 [facility] [address] [address] Nov, Back pain M54.9 and Anxiety F41.9 [facility] [address] [address] Oct, [facility] [address] [address] Oct, Back pain M54.9 and Anxiety F41.9 [facility] [address] [address] September, Anxiety F41.9 and Back pain M54.9 [facility] [address] [address] September, Diabetes E11.9 ; Hypertension I10 ; COPD (chronic obstructive pulmonary disease) J44.9 and Lumbar radiculopathy, chronic M54.16 [place] [address] [address] September, Anxiety F41.9 [place] [address] [address] Aug, [place] [address] [address] Aug, [place] [address] [address] Aug, Anxiety F41.9 and Back pain M54.9 [place] [address] [address] Aug, Medicare annual wellness visit, initial Z00.00 ; COPD (chronic obstructive pulmonary disease) J44.9 ; PAD (peripheral artery disease) I73.9 ; Insulin long-term use Z79.4 ; Hypertension I10 ; Anxiety F41.9 ; Recurrent major depressive disorder, in full remission F33.42 ; Pressure ulcer of other site, stage 3 L89.893 ; Type 2 diabetes mellitus with diabetic peripheral angiopathy without gangrene E11.51 and MCC current use of insulin Z79.4 [place] [address] [address] Jul, Back pain M54.9 [place] [address] [address] Jul, [place] [address] [address] Jul, Anxiety F41.9 and Back pain M54.9 [place] [address] [address] Jul, Diabetes E11.9 [place] [address] [address] May, [place] [address] [address] May, Diabetes E11.9 ; Anxiety F41.9 ; Back pa in M54.9 and COPD (chronic obstructive pulmonary disease) J44.9 [place] [address] [address] May, Back pain M54.9 [facility] [address] [address] May, [facility] [address] [address] Apr, Back pain M54.9 [place] [address] [address] Mar, Back pain M54.9 [place] [address] [address] Mar, [place] [address] [address] Mar, [place] [address] [address] 14 Mar, 2017 Radiculopathy of lumbar region M54.16 [place] [address] [address] Mar, [place] [address] [address] 07 Mar, 2017 Encounter for immunization Z23 and Lumba r radiculopathy, chronic M54.16 [place] [address] [address] Mar, Back pain M54.9 and Anxiety F41.9 [facility] [address] [facility] [id number] [place] [address] 10 Feb, 2017 Acute bilateral low back boy n with left-sided sciatica M54.42 and Acute bilateral low back pain with right-sided sciatica M54.41 [place] [address] [address] Feb, [facility] [address] [address] Feb, Back pain M54.9 [facility] [address] [address] 05 Jan, 2017 Back pain M54.9 and Anxiety F41.9 [facility] [address] [address] 05 Jan, 2017 Diabetes E11.9 [place] [address] [address] Dec, Diabetes E11.9 ; Back pain M54.9 ; Anxie ty F41.9 and Insulin long-term use Z79.4 [place] [address] [address] Dec, Anxiety F41.9 [place] [address] [address] Dec, Back pain M54.9 [place] [address] [address] Nov, Back pain M54.9 [place] [address] [address] Oct, Back pain M54.9 and Anxiety F41.9 [place] [address] [address] September, Back pain M54.9 [place] [address] [address] September, Back pain M54.9 and Anxiety F41.9 [place] [address] [address] Aug, Diabetes E11.9 ; Anxiety F41.9 ; Back pa in M54.9 and PAD (peripheral artery disease) I73.9 [facility] [address] [address] Aug, Anxiety F41.9 [place] [address] [address] 14 Aug, 2016 Back pain M54.9 [facility] [address] [address] Jul, Back pain M54.9 [facility] [address] [address] Jul, Back pain M54.9 [facility] [address] [address] Jul, Back pain M54.9 [facility] [address] [address] 16 Jul, 2016 Dorsalgia M54.9 [facility] [address] [address] 14 Jul, 2016 [place] [address] [address] May, Back pain M54.9 [facility] [address] [address] May, Diabetes E11.9 ; Anxiety F41.9 ; Port ca theter in place Z95.828 ; Encounter for immunization Z23 and Insulin long-term use Z79.4 [place] [address] [address] Apr, Back pain M54.9 [facility] [address] [address] Apr, Back pain M54.9 [facility] [address] [address] Apr, [facility] [address] [address] Apr, Back pain M54.9 [facility] [address] [address] Mar, COPD (chronic obstructive pulmonary dise ase) J44.9 [facility] [address] [place] [address] Feb, [facility] [address] [address] 30 Jan, 2016 [facility] [address] [address] 20 Jan, 2016 [facility] [address] [address] Jan, [facility] [address] [address] Jan, [facility] [address] [address] Dec, Diabetes E11.9 ; Hypoxia R09.02 and Back pain M54.9 [facility] [address] [id number] [place] [address] Dec, [facility] [address] [address] Nov, [facility] [address] [address] Oct, Anxiety F41.9 [facility] [address] [address] Oct, Back pain M54.9 [facility] [address] [address] September, Back pain M54.9 [facility] [address] [address] September, Diabetes E11.9 [facility] [address] [address] September, [facility] [address] [address] September, Diabetes E11.9 ; Insulin long-term use Z 79.4 and Back pain M54.9 [facility] [address] [address] Aug, Back pain M54.9 [facility] [address] [address] Aug, Back pain M54.9 ; Anxiety F41.9 and Arth ropathy, unspecified M12.9 [facility] [address] [address] Jul, Back pain M54.9 [facility] [address] [address] Jul, Anxiety F41.9 [facility] [address] [address] Jul, Back pain M54.9 [place] [address] [address] Jul, [place] [address] [address] Jul, [place] [address] [address] May, Back pain M54.9 ; Diabetes E11.9 ; Insul in long-term use Z79.4 ; COPD (chronic obstructive pulmonary disease) J44.9 and Hypertension I10 [place] [address] [address] May, Chronic pain G89.29 [place] [address] [address] Apr, [place] [address] [address] Apr, [place] [address] [address] Mar, [place] [address] [address] Mar, Encounter for immunization Z23 and Diabe boris E11.9 [place] [address] [address] Feb, [place] [id number] [place] [address] Feb, [facility] [id number] [place] [address] Jan, [facility] [id number] [place] [address] Jan, [facility] [id number] [place] [address] Dec, [facility] [id number] [place] [address] Dec, [facility] [id number] [place] [address] Dec, Unspecified arthropathy, site unspecifie d 716.90 and Diabetes mellitus type 2, uncontrolled 250.02 [facility] [id number] [place] [address] Dec, [facility] [id number] [place] [address] Nov, [facility] [id number] [place] [address] Oct, [facility] [id number] [place] [address] September, [facility] [id number] [place] [address] September, [facility] [id number] [place] [address] September, [facility] [id number] [place] [address] September, [facility] [id number] [place] [address] 14 Aug, 2014 [facility] [id number] [place] [address] Aug, [facility] [id number] [place] [address] Jul, [facility] [address] [facility] [id number] [place] [address] 18 Jul, 2014 [facility] [address] [id number] [place] [address] 16 Jul, 2014 [facility] [address] [id number] [place] [address] 16 Jul, 2014 [facility] [address] [id number] [place] [address] 16 Jul, 2014 [facility] [address] [facility] [id number] [place] [address] 16 Jul, 2014 [facility] [address] [id number] [place] [address] 16 Jul, 2014 [facility] [address] [id number] [place] [address] 16 Jul, 2014 [facility] [address] [id number] [place] [address] 16 Jul, 2014 [facility] [address] [id number] [place] [address] Jul, 2014 [facility] [address] [id number] [place] [address] Jul, 2014 [facility] [address] [id number] [place] [address] 09 Jul, 2014 [facility] [address] [id number] [place] [address] 09 Jul, 2014 [facility] [address] [id number] [place] [address] 17 Jul, 2014 [facility] [address] [facility] [id number] [place] [address] 17 Jul, 2014 [facility] [address] [id number] [place] [address] 16 Jul, 2014 [facility] [address] [id number] [place] [address] 16 Jul, 2014 [facility] [address] [id number] [place] [address] 16 Jul, 2014 [facility] [address] [facility] [id number] [place] [address] Jul, 2014 [facility] [address] [id number] [place] [address] Jul, 2014 [facility] [address] [id number] [place] [address] Jul, 2014 [facility] [address] [id number] [place] [address] Jul, 2014 [facility] [address] [id number] [place] [address] Jul, 2014 [facility] [address] [id number] [place] [address] Jul, 2014 [facility] [address] [id number] [place] [address] Jul, 2014 [facility] [address] [id number] [place] [address] Jul, 2014 [facility] [address] [id number] [place] [address] Jul, 2014 [facility] [address] [id number] [place] [address] Jul, 2014 [facility] [address] [id number] [place] [address] Jul, [facility] [address] [id number] [place] [address] May, [facility] [address] [id number] [place] [address] May, [facility] [address] [id number] [place] [address] May, [facility] [address] [id number] [place] [address] May, [facility] [address] [id number] [place] [address] May, [facility] [address] [id number] [place] [address] May, [facility] [address] [id number] [place] [address] May, [facility] [address] [id number] [place] [address] May, [facility] [address] [id number] [place] [address] May, [facility] [address] [id number] [place] [address] May, [facility] [address] [id number] [place] [address] Apr, [facility] [address] [id number] [place] [address] Apr, [facility] [address] [id number] [place] [address] Apr, [facility] [address] [id number] [place] [address] Apr, [facility] [address] [id number] [place] [address] Apr, [facility] [address] [id number] [place] [address] Apr, [facility] [address] [id number] [place] [address] Mar, [facility] [address] [id number] [place] [address] Mar, [facility] [address] [id number] [place] [address] Mar, [facility] [address] [id number] [place] [address] Mar, [facility] [address] [id number] [place] [address] Mar, [facility] [address] [id number] [place] [address] Mar, [facility] [address] [facility] [id number] [place] [address] Mar, [facility] [address] [id number] [place] [address] Mar, [facility] [address] [id number] [place] [address] Mar, [facility] [address] [id number] [place] [address] Mar, [facility] [address] [facility] [id number] [place] [address] Mar, [facility] [address] [id number] [place] [address] Feb, [facility] [address] [id number] [place] [address] Feb, [facility] [address] [id number] [place] [address] Feb, [facility] [address] [id number] [place] [address] Feb, [facility] [address] [id number] [place] [address] Feb, [facility] [address] [id number] [place] [address] Feb, [facility] [address] [id number] [place] [address] Feb, [facility] [address] [id number] [place] [address] Feb, [facility] [address] [id number] [place] [address] Feb, [facility] [address] [id number] [place] [address] Feb, [facility] [address] [id number] [place] [address] Jan, [facility] [address] [id number] [place] [address] 22 Jan, 2014 [facility] [address] [id number] [place] [address] 16 Jan, 2014 [facility] [address] [facility] [id number] [place] [address] 16 Jan, 2014 [facility] [address] [id number] [place] [address] Jan, [facility] [address] [facility] [id number] [place] [address] Jan, [facility] [address] [facility] [id number] [place] [address] Jan, [facility] [address] [id number] [place] [address] Dec, [facility] [address] [id number] [place] [address] Dec, [facility] [address] [id number] [place] [address] Dec, [facility] [address] [facility] [id number] [place] [address] Dec, [facility] [address] [id number] [place] [address] Dec, [facility] [address] [id number] [place] [address] Dec, [facility] [address] [id number] [place] [address] Dec, [facility] [address] [facility] [id number] [place] [address] Dec, [facility] [address] [id number] [place] [address] Oct, [facility] [address] [id number] [place] [address] Oct, [facility] [address] [id number] [place] [address] September, [facility] [address] [id number] [place] [address] September, [facility] [address] [id number] [place] [address] September, [facility] [address] [id number] [place] [address] September, [facility] [address] [id number] [place] [address] September, [facility] [address] [facility] [id number] [place] [address] September, [facility] [address] [id number] [place] [address] September, [facility] [address] [id number] [place] [address] Aug, [facility] [address] [id number] [place] [address] Aug, [facility] [address] [id number] [place] [address] Jul, [facility] [address] [id number] [place] [address] Jul, [facility] [address] [id number] [place] [address] Jul, [facility] [address] [id number] [place] [address] Jul, [facility] [address] [id number] [place] [address] Jul, [facility] [address] [id number] [place] [address] Jul, [facility] [address] [id number] [place] [address] Jul, [facility] [address] [id number] [place] [address] Jul, [facility] [address] [id number] [place] [address] 15 May, 2013 [facility] [address] [id number] [place] [address] 15 May, 2013 [facility] [address] [id number] [place] [address] 14 May, 2013 [facility] [address] [id number] [place] [address] 14 May, 2013 [facility] [address] [id number] [place] [address] 18 Apr, 2013 [facility] [address] [id number] [place] [address] Mar, [facility] [address] [id number] [place] [address] Mar, [facility] [address] [id number] [place] [address] Mar, [facility] [address] [id number] [place] [address] Mar, [facility] [address] [id number] [place] [address] Mar, [facility] [address] [id number] [place] [address] Mar, [facility] [address] [id number] [place] [address] 18 Mar, 2013 [facility] [address] [id number] [place] [address] 18 Mar, 2013 [facility] [address] [id number] [place] [address] Mar, [facility] [address] [id number] [place] [address] Mar, [facility] [address] [id number] [place] [address] Mar, [facility] [address] [id number] [place] [address] Mar, [facility] [address] [id number] [place] [address] Feb, [facility] [address] [id number] [place] [address] Feb, [facility] [address] [id number] [place] [address] Feb, [facility] [address] [id number] [place] [address] Feb, [facility] [address] [id number] [place] [address] Feb, [facility] [address] [id number] [place] [address] Jan, [facility] [address] [id number] [place] [address] Dec, [facility] [address] [id number] [place] [address] Dec, [facility] [address] [id number] [place] [address] Dec, [facility] [address] [id number] [place] [address] Nov, [facility] [address] [id number] [place] [address] Nov, [facility] [address] [id number] [place] [address] Nov, [facility] [address] [id number] [place] [address] Oct, [facility] [address] [id number] [place] [address] Oct, [facility] [address] [id number] [place] [address] Oct, [facility] [address] [id number] [place] [address] September, [facility] [address] [id number] [place] [address] September, [facility] [address] [id number] [place] [address] September, [facility] [address] [id number] [place] [address] September, [facility] [address] [id number] [place] [address] September, [facility] [address] [id number] [place] [address] Aug, [facility] [address] [id number] [place] [address] Aug, [facility] [address] [id number] [place] [address] Aug, [facility] [address] [id number] [place] [address] Jul, [facility] [address] [id number] [place] [address] Jul, [facility] [address] [id number] [place] [address] Jul, [facility] [address] [id number] [place] [address] Jul, [facility] [address] [id number] [place] [address] Jul, [facility] [address] [id number] [place] [address] Jul, [facility] [address] [id number] [place] [address] Jul, [facility] [address] [id number] [place] [address] May, [facility] [address] [id number] [place] [address] May, [facility] [address] [id number] [place] [address] May, [facility] [address] [id number] [place] [address] Apr, [facility] [address] [id number] [place] [address] Apr, [facility] [address] [id number] [place] [address] Apr, [facility] [address] [id number] [place] [address] Apr, [facility] [address] [id number] [place] [address] Apr, [facility] [address] [id number] [place] [address] Mar, [facility] [address] [id number] [place] [address] Mar, [facility] [id number] [place] [address] Mar, [facility] [address] [id number] [place] [address] Mar, [facility] [address] [id number] [place] [address] Feb, [facility] [address] [id number] [place] [address] Feb, [facility] [address] [id number] [place] [address] Feb, [facility] [address] [id number] [place] [address] Feb, [facility] [address] [id number] [place] [address] Feb, [facility] [id number] [place] [address] Jan, [facility] [address] [id number] [place] [address] Dec, [facility] [address] [id number] [place] [address] Dec, [facility] [address] [id number] [place] [address] Dec, [facility] [address] [id number] [place] [address] Nov, [facility] [address] [id number] [place] [address] Nov, [facility] [address] [id number] [place] [address] Nov, [facility] [address] [id number] [place] [address] Oct, [facility] [address] [id number] [place] [address] Oct, [facility] [address] [id number] [place] [address] Oct, [facility] [address] [id number] [place] [address] Oct, [facility] [address] [id number] [place] [address] September, [facility] [address] [id number] [place] [address] September, [facility] [address] [id number] [place] [address] 30 Aug, 2011 [facility] [address] [id number] [place] [address] Aug, [facility] [address] [id number] [place] [address] Aug, [facility] [address] [id number] [place] [address] Aug, [facility] [address] [id number] [place] [address] 06 Aug, 2011 [facility] [address] [id number] [place] [address] Aug, [facility] [address] [id number] [place] [address] 05 Aug, 2011 [facility] [address] [id number] [place] [address] Jul, [facility] [address] [id number] [place] [address] Jul, [facility] [address] [id number] [place] [address] Jul, [facility] [address] [id number] [place] [address] May, [facility] [address] [id number] [place] [address] May, [facility] [address] [id number] [place] [address] May, [facility] [address] [id number] [place] [address] Apr, [facility] [address] [id number] [place] [address] Apr, [facility] [address] [id number] [place] [address] Mar, [facility] [address] [id number] [place] [address] Mar, [facility] [address] [id number] [place] [address] Mar, [facility] [address] [id number] [place] [address] Mar, [facility] [address] [id number] [place] [address] Mar, [facility] [address] [id number] [place] [address] Mar, [facility] [address] [id number] [place] [address] Feb, [facility] [address] [id number] [place] [address] Feb, [facility] [address] [facility] [id number] [place] [address] 14 Feb, 2011 IMMUNIZATIONS No Known Immunizations SOCIAL HISTORY Never Assessed REASON FOR VISIT PLAN OF CARE VITAL SIGNS MEDICATIONS No Known Medications RESULTS No Results PROCEDURES No Known [...] foot infections x 3 2016 Hospitalization History [facility] - right big t oe removed 2019
--- OUTSIDE RECORDS SUMMARY | 2020-01-03 07:39 | XMS REPORT ---
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 Animal Name Role Phone FERNY SILVERIO Unavailable PROBLEMS Type Condition ICD9-CM Code [id number] Code Onset Dates Condition S tatus SNOMED Code Problem Insulin long-term use Z79.4 Active 807881301 Problem Hypertension I10 Active 7084207 3 Problem Diabetes E11.9 Active 07511887 Problem Hypoxia R09.02 Active 030438791 Problem Anxiety F41.9 Active 94268360 Problem Port catheter in place Z95.828 Active 095901356 Problem Pressure ulcer of other site, stage 3 L89.893 Active 774245708 Problem COPD (chronic obstructive pulmonary disease) J44.9 Active 73786894 Problem Type 2 diabetes mellitus wit h diabetic peripheral angiopathy without gangrene E11.51 Active 147330234 Problem Back pain M54.9 Active 021119854 Problem PAD (peripheral artery disease) I73.9 Active 591958783 Problem Lumbar radiculopathy, chronic M54.16 Active 503025775 Problem Recurrent major depressive disorder, in full remission F33.42 Active 868248966 Problem detention current use of insulin Z79.4 Active 873565831 ALLERGIES No Information ENCOUNTERS Encounter Location Date Diagnosis [facility] [address] [facility] [id number] [address] [place] [phone] Feb, [facility] [address] [facility] [id number] [address] [place] [phone] Jan, Anxiety F41.9 [facility] [address] [facility] [id number] [address] [place] [id number] Jan, Anxiety F41.9 [facility] [address] [facility] [id number] [address] [place] [id number] Jan, [facility] [address] [id number] [address] [place] [phone] Jan, [facility] [address] [id number] [address] [place] [id number] Jan, Back pain M54.9 [facility] [address] [id number] [address] [place] [id number] Jan, [facility] [address] [id number] [address] [place] [phone] Dec, Acute non-recurrent frontal sinusitis J01.10 [facility] [address] [id number] [address] [place] [id number] Dec, Acute non-recurrent frontal sinusitis J01.10 [facility] [address] [id number] [address] [place] [phone] Dec, Type 2 diabetes mellitus wit h diabetic peripheral angiopathy without gangrene E11.51 ; Lumbar radiculopathy, chronic M54.16 ; Recurrent major depressive disorder, in full remission F33.42 and Anxiety F41.9 [facility] [address] [id number] [address] [place] [id number] Dec, [facility] [address] [id number] [address] [place] [phone] Nov, Anxiety F41.9 [facility] [address] [id number] [address] [place] [id number] Nov, [facility] [address] [id number] [address] [place] [phone] Nov, Back pain M54.9 [facility] [address] [id number] [address] [place] [id number] Nov, [facility] [address] [id number] [address] [place] [address] Nov, Back pain M54.9 [facility] [address] [id number] [address] [place] [id number] Nov, Anxiety F41.9 [facility] [address] [id number] [address] [place] [phone] Nov, [facility] [address] [id number] [address] [place] [id number] Oct, Back pain M54.9 [facility] [address] [id number] [address] [place] [phone] Oct, [facility] [address] [id number] [address] [place] [id number] Oct, [facility] [address] [id number] [address] [place] [phone] Oct, [facility] [address] [id number] [address] [place] [id number] September, Back pain M54.9 [facility] [address] [id number] [address] [place] [id number] September, [facility] [address] [id number] [address] [place] [address] September, [facility] [address] [id number] [address] [place] [id number] September, [facility] [address] [id number] [address] [place] [address] Aug, Back pain M54.9 [facility] [address] [id number] [address] [place] [id number] Aug, Anxiety F41.9 [facility] [address] [id number] [address] [place] [address] Aug, [facility] [address] [id number] [address] [place] [address] Aug, Pressure ulcer of other site , stage 3 L89.893 and COPD (chronic obstructive pulmonary disease) J44.9 [facility] [address] [id number] [address] [place] [address] Aug, History of smoking Z87.891 [facility] [address] [id number] [address] [place] [address] Jul, Type 2 diabetes mellitus wit h diabetic peripheral angiopathy without gangrene E11.51 [facility] [address] [id number] [address] [place] [phone] Jul, Back pain M54.9 [facility] [address] [id number] [address] [place] [phone] Jul, Anxiety F41.9 [facility] [address] [id number] [address] [place] [id number] Jul, [facility] [address] [id number] [address] [place] [address] Jul, Back pain M54.9 [facility] [address] [id number] [address] [place] [address] Jul, Back pain M54.9 [facility] [address] [id number] [address] [place] [address] Jul, Lumbar radiculopathy, chroni c M54.16 ; Hypertension I10 and Type 2 diabetes mellitus with diabetic peripheral angiopathy without gangrene E11.51 [facility] [address] [id number] [address] [place] [id number] Jul, Back pain M54.9 [facility] [address] [id number] [address] [place] [id number] Jul, Back pain M54.9 and Anxiety F41.9 [facility] [address] [id number] [address] [place] [id number] Jul, [facility] [address] [id number] [address] [place] [phone] May, Back pain M54.9 and Anxiety F41.9 [facility] [address] [id number] [address] [place] [id number] May, [facility] [address] [id number] [address] [place] [address] Apr, Radiculopathy of lumbar rhiannon on M54.16 ; Back pain M54.9 and Anxiety F41.9 [facility] [address] [id number] [address] [place] [address] Apr, Diabetes E11.9 ; Muscle spas m M62.838 and Lumbar radiculopathy, chronic M54.16 [facility] [address] [id number] [address] [place] [id number] 17 Apr, 2018 [facility] [address] [id number] [address] [place] [phone] Apr, [facility] [address] [id number] [address] [place] [address] Mar, Back pain M54.9 and Anxiety F41.9 [facility] [address] [id number] [address] [place] [address] Mar, [facility] [address] [id number] [address] [place] [phone] Mar, [facility] [address] [id number] [address] [place] [address] Mar, [facility] [address] [id number] [address] [place] [address] Mar, Encounter for immunization Z 23 [facility] [address] [id number] [address] [place] [address] Feb, Back pain M54.9 and Anxiety F41.9 [facility] [address] [id number] [address] [place] [id number] 04 Feb, 2018 Back pain M54.9 and Anxiety F41.9 [facility] [address] [id number] [address] [place] [id number] 06 Jan, 2018 Back pain M54.9 and Anxiety F41.9 [facility] [address] [id number] [address] [place] [phone] Jan, [facility] [address] [id number] [address] [place] [id number] Dec, [facility] [address] [id number] [address] [place] [id number] Dec, Back pain M54.9 and Anxiety F41.9 [facility] [address] [id number] [address] [place] [phone] Dec, Diabetes E11.9 ; Type 2 diab etes mellitus with diabetic peripheral angiopathy without gangrene E11.51 ; Lumbar radiculopathy, chronic M54.16 ; COPD (chronic obstructive pulmonary disease) J44.9 and Anxiety F41.9 [facility] [address] [id number] [address] [place] [phone] Dec, Back pain M54.9 and Anxiety F41.9 [facility] [address] [id number] [address] [place] [address] Nov, Back pain M54.9 and Anxiety F41.9 [facility] [address] [id number] [address] [place] [phone] Oct, [place] [address] [facility] [id number] [address] [place] [phone] Oct, Back pain M54.9 and Anxiety F41.9 [facility] [address] [id number] [address] [place] [phone] September, Anxiety F41.9 and Back pain M54.9 [facility] [address] [id number] [address] [place] [id number] September, Diabetes E11.9 ; Hypertensio n I10 ; COPD (chronic obstructive pulmonary disease) J44.9 and Lumbar radiculopathy, chronic M54.16 [facility] [address] [facility] [id number] [address] [place] [address] September, Anxiety F41.9 [facility] [address] [id number] [address] [place] [phone] Aug, [facility] [address] [id number] [address] [place] [phone] Aug, [facility] [address] [facility] [id number] [address] [place] [address] Aug, Anxiety F41.9 and Back pain M54.9 [facility] [address] [id number] [address] [place] [address] Aug, Medicare annual wellness vis it, initial [...] 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 [facility] [address] [id number] [address] [place] [id number] Jul, Back pain M54.9 [facility] [address] [id number] [address] [place] [phone] Jul, [facility] [address] [id number] [address] [place] [id number] Jul, Anxiety F41.9 and Back pain M54.9 [facility] [address] [id number] [address] [place] [phone] Jul, Diabetes E11.9 [facility] [address] [id number] [address] [place] [phone] May, [facility] [address] [id number] [address] [place] [address] May, Diabetes E11.9 ; Anxiety F41 .9 ; Back pain M54.9 and COPD (chronic obstructive pulmonary disease) J44.9 [facility] [address] [id number] [address] [place] [id number] May, Back pain M54.9 [facility] [address] [id number] [address] [place] [id number] May, [facility] [address] [id number] [address] [place] [id number] Apr, Back pain M54.9 [facility] [address] [id number] [address] [place] [id number] Mar, Back pain M54.9 [facility] [address] [id number] [address] [place] [phone] Mar, [facility] [address] [id number] [address] [place] [id number] 16 Mar, 2017 [facility] [address] [id number] [address] [place] [id number] 14 Mar, 2017 Radiculopathy of lumbar rhiannon on M54.16 [facility] [address] [id number] [address] [place] [id number] 13 Mar, 2017 [facility] [address] [id number] [address] [place] [phone] 07 Mar, 2017 Encounter for immunization Z 23 and Lumbar radiculopathy, chronic M54.16 [facility] [address] [id number] [address] [place] [id number] Mar, Back pain M54.9 and Anxiety F41.9 [facility] [address] [id number] [address] [place] [id number] 10 Feb, 2017 Acute bilateral low back boy n with left-sided sciatica M54.42 and Acute bilateral low back pain with right-sided sciatica M54.41 [facility] [address] [id number] [address] [place] [address] Feb, [facility] [address] [id number] [address] [place] [id number] Feb, Back pain M54.9 [facility] [address] [id number] [address] [place] [id number] 05 Jan, 2017 Back pain M54.9 and Anxiety F41.9 [facility] [address] [id number] [address] [place] [id number] 05 Jan, 2017 Diabetes E11.9 [facility] [address] [facility] [id number] [address] [place] [phone] Dec, Diabetes E11.9 ; Back pain M 54.9 ; Anxiety F41.9 and Insulin long- term use Z79.4 [facility] [address] [id number] [address] [place] [id number] Dec, Anxiety F41.9 [facility] [address] [facility] [id number] [address] [place] [address] Dec, Back pain M54.9 [facility] [address] [id number] [address] [place] [id number] Nov, Back pain M54.9 [facility] [address] [facility] [id number] [address] [place] [address] Oct, Back pain M54.9 and Anxiety F41.9 [facility] [address] [facility] [id number] [address] [place] [id number] September, Back pain M54.9 [facility] [address] [facility] [id number] [address] [place] [address] September, Back pain M54.9 and Anxiety F41.9 [facility] [address] [id number] [address] [place] [phone] Aug, Diabetes E11.9 ; Anxiety F41 .9 ; Back pain M54.9 and PAD (peripheral artery disease) I73.9 [facility] [address] [id number] [address] [place] [phone] Aug, Anxiety F41.9 [facility] [address] [id number] [address] [place] [address] Aug, Back pain M54.9 [facility] [address] [id number] [address] [place] [address] Jul, Back pain M54.9 [facility] [address] [id number] [address] [place] [address] Jul, Back pain M54.9 [facility] [address] [id number] [address] [place] [address] Jul, Back pain M54.9 [facility] [address] [id number] [address] [place] [address] Jul, Dorsalgia M54.9 [facility] [address] [id number] [address] [place] [id number] Jul, [facility] [address] [id number] [address] [place] [id number] May, Back pain M54.9 [facility] [address] [id number] [address] [place] [address] May, Diabetes E11.9 ; Anxiety F41 .9 ; Port catheter in place Z95.828 ; Encounter for immunization Z23 and Insulin long-term use Z79.4 [facility] [address] [id number] [address] [place] [address] Apr, Back pain M54.9 [facility] [address] [id number] [address] [place] [id number] Apr, Back pain M54.9 [facility] [address] [id number] [address] [place] [id number] Apr, [facility] [address] [id number] [address] [place] [id number] Apr, Back pain M54.9 [facility] [address] [id number] [address] [place] [id number] Mar, COPD (chronic obstructive pu lmonary disease) J44.9 [facility] [address] [id number] [address] [place] [address] Feb, [facility] [address] [id number] [address] [place] [id number] 30 Jan, 2016 [facility] [address] [id number] [address] [place] [id number] Jan, [facility] [address] [id number] [address] [place] [address] Jan, [facility] [address] [id number] [address] [place] [address] Jan, [facility] [address] [id number] [address] [place] [address] Dec, Diabetes E11.9 ; Hypoxia R09 .02 and Back pain M54.9 [facility] [address] [id number] [address] [place] [id number] Dec, [facility] [address] [id number] [address] [place] [address] Nov, [facility] [address] [id number] [address] [place] [id number] Oct, Anxiety F41.9 [facility] [address] [id number] [address] [place] [address] Oct, Back pain M54.9 [facility] [address] [id number] [address] [place] [id number] September, Back pain M54.9 [facility] [address] [id number] [address] [place] [id number] September, Diabetes E11.9 [facility] [address] [id number] [address] [place] [phone] September, [facility] [address] [id number] [address] [place] [phone] September, Diabetes E11.9 ; Insulin sarai g-term use Z79.4 and Back pain M54.9 [facility] [address] [facility] [id number] [address] [place] [id number] Aug, Back pain M54.9 [facility] [address] [facility] [id number] [address] [place] [id number] Aug, Back pain M54.9 ; Anxiety F4 1.9 and Arthropathy, unspecified M12.9 [facility] [address] [facility] [id number] [address] [place] [id number] Jul, Back pain M54.9 [facility] [address] [facility] [id number] [place] [phone] Jul, Anxiety F41.9 [facility] [address] [place] [id number] [place] [phone] Jul, Back pain M54.9 [facility] [address] [place] [id number] [address] [place] [phone] Jul, [facility] [address] [facility] [id number] [address] [place] [phone] Jul, [facility] [address] [place] [id number] [place] [address] May, Back pain M54.9 ; Diabetes E 11.9 ; Insulin long-term use Z79.4 ; COPD (chronic obstructive pulmonary disease) J44.9 and Hypertension I10 [facility] [address] [facility] [id number] [address] [place] [address] May, Chronic pain G89.29 [place] [address] [place] [id number] [address] [place] [phone] Apr, [facility] [address] [place] [id number] [address] [place] [id number] Apr, [facility] [address] [place] [id number] [place] [phone] Mar, [facility] [address] [id number] [address] [place] [id number] Mar, Encounter for immunization Z 23 and Diabetes E11.9 [facility] [address] [id number] [address] [place] [phone] Feb, [facility] [address] [id number] [address] [place] [phone] Feb, [facility] [address] [id number] [address] [place] [phone] Jan, [facility] [address] [id number] [address] [place] [phone] Jan, [facility] [address] [id number] [address] [place] [phone] Dec, [facility] [address] [id number] [address] [place] [phone] Dec, [facility] [address] [id number] [address] [place] [phone] Dec, Unspecified arthropathy, sit e unspecified 716.90 and Diabetes mellitus type 2, uncontrolled 250.02 [facility] [address] [id number] [address] [place] [phone] Dec, [facility] [address] [id number] [address] [place] [phone] Nov, [facility] [address] [id number] [address] [place] [phone] Oct, [facility] [address] [id number] [address] [place] [id number] September, [facility] [address] [id number] [address] [place] [id number] September, [facility] [address] [id number] [address] [place] [phone] September, [facility] [address] [id number] [address] [place] [address] [place] [address] 11 Sep, 2014 [facility] [address] [id number] [address] [place] [address], [place] [address] 14 Aug, 2014 [facility] [address] [id number] [address] [place] [address], [place] [address] 13 Aug, 2014 [facility] [address] [id number] [address] [place] [address], [place] [address] 18 Jul, 2014 [facility] [address] [id number] [address] [place] [address], [place] [address] 18 Jul, 2014 [facility] [address] [id number] [address] [place] [address], [place] [address] 16 Jul, 2014 [facility] [address] [id number] [address] [place] [address], [place] [address] 16 Jul, 2014 [facility] [address] [id number] [address] [place] [address], [place] [address] 16 Jul, 2014 [facility] [address] [id number] [address] [place] [address], [place] [address] 16 Jul, 2014 [facility] [address] [id number] [address] [place] [address], [place] [address] 16 Jul, 2014 [facility] [address] [id number] [address] [place] [address], [place] [address] 16 Jul, 2014 [facility] [address] [id number] [address] [place] [address], [place] [address] 16 Jul, 2014 [facility] [address] [id number] [address] [place] [address], [place] [address] 13 Jul, 2014 [facility] [address] [id number] [address] [place] [address], [place] [address] 13 Jul, 2014 [facility] [address] [id number] [address] [place] [address], [place] [address] 09 Jul, 2014 [facility] [address] [id number] [address] [place] [address], [place] [address] 09 Jul, 2014 [facility] [address] [id number] [address] [place] [address], [place] [address] 17 Jul, 2014 [facility] [address] [id number] [address] [place] [address], [place] [address] 17 Jul, 2014 [facility] [address] [id number] [address] [place] [address], [place] [address] 16 Jul, 2014 [facility] [address] [id number] [address] [place] [address], [place] [address] 16 Jul, 2014 [facility] [address] [id number] [address] [place] [address], [place] [address] 16 Jul, 2014 [facility] [address] [id number] [address] [place] [address], [place] [address] 16 Jul, 2014 [facility] [address] [id number] [address] [place] [address], [place] [address] 16 Jul, 2014 [facility] [address] [id number] [address] [place] [address], [place] [address] 16 Jul, 2014 [facility] [address] [id number] [address] [place] [address], [place] [address] 16 Jul, 2014 [facility] [address] [id number] [address] [place] [address], [place] [address] 16 Jul, 2014 [facility] [address] [id number] [address] [place] [address], [place] [address] 16 Jul, 2014 [facility] [address] [id number] [address] [place] [address], [place] [address] 16 Jul, 2014 [facility] [address] [id number] [address] [place] [address], [place] [address] 16 Jul, 2014 [facility] [address] [id number] [address] [place] [address], [place] [address] 16 Jul, 2014 [facility] [address] [id number] [address] [place] [address], [place] [address] 16 Jul, 2014 [facility] [address] [id number] [address] [place] [address], [place] [address] 16 Jul, 2014 [facility] [address] [id number] [address] [place] [address], [place] [address] May, [facility] [address] [id number] [address] [place] [address], [place] [address] May, [facility] [address] [id number] [address] [place] [address], [place] [address] May, [facility] [address] [id number] [address] [place] [address], [place] [address] May, [facility] [address] [id number] [address] [place] [address], [place] [address] May, [facility] [address] [id number] [address] [place] [address], [place] [address] May, [facility] [place] [address] [id number] [address] [place] [address], [place] [address] May, [facility] [address] [id number] [address] [place] [address], [place] [address] May, [facility] [place] [address] [id number] [address] [place] [address], [place] [address] May, [facility] [address] [id number] [address] [place] [address], [place] [address] May, [facility] [address] [id number] [address] [place] [address], [place] [address] Apr, [facility] [address] [id number] [address] [place] [address], [place] [address] Apr, [facility] [address] [id number] [address] [place] [address], [place] [address] Apr, [facility] [address] [id number] [address] [place] [address], [place] [address] Apr, [facility] [address] [id number] [address] [place] [address], [place] [address] Apr, [facility] [address] [id number] [address] [place] [address], [place] [address] Apr, [facility] [address] [id number] [address] [place] [address], [place] [address] Mar, [facility] [address] [id number] [address] [place] [address], [place] [address] Mar, [facility] [address] [id number] [address] [place] [address], [place] [address] Mar, [facility] [address] [id number] [address] [place] [address], [place] [address] Mar, [facility] [address] [id number] [address] [place] [address], [place] [address] Mar, [facility] [address] [id number] [address] [place] [address], [place] [address] Mar, [facility] [address] [id number] [address] [place] [address], [place] [address] Mar, [facility] [address] [id number] [address] [place] [address], [place] [address] Mar, [facility] [address] [id number] [address] [place] [address], [place] [address] Mar, [facility] [address] [id number] [address] [place] [address], [place] [address] Mar, [facility] [address] [id number] [address] [place] [address], [place] [address] Mar, [facility] [address] [id number] [address] [place] [address], [place] [address] Feb, [facility] [address] [id number] [address] [place] [address], [place] [address] Feb, [facility] [address] [id number] [address] [place] [address], [place] [address] Feb, [facility] [address] [id number] [address] [place] [address] [place] [address] 15 Feb, 2014 [facility] [address] [id number] [address] [place] [address], [place] [address] Feb, [facility] [address] [id number] [address] [place] [address], [place] [address] Feb, [facility] [address] [id number] [address] [place] [address], [place] [address] Feb, [facility] [address] [id number] [address] [place] [address], [place] [address] Feb, [facility] [address] [id number] [address] [place] [address], [place] [address] Feb, [facility] [address] [id number] [address] [place] [address], [place] [address] Feb, [facility] [address] [id number] [address] [place] [address], [place] [address] Jan, [facility] [address] [id number] [address] [place] [address], [place] [address] 22 Jan, 2013 [facility] [address] [id number] [address] [place] [address], [place] [address] 16 Jan, 2013 [facility] [address] [id number] [address] [place] [address], [place] [address] 16 Jan, 2013 [facility] [address] [id number] [address] [place] [address], [place] [address] 12 Jan, 2013 [facility] [address] [id number] [address] [place] [address], [place] [address] 04 Jan, 2013 [facility] [address] [id number] [address] [place] [address], [place] [address] Jan, [facility] [address] [id number] [address] [place] [address], [place] [address] Dec, [facility] [address] [id number] [address] [place] [address], [place] [address] Dec, [facility] [address] [id number] [facility] [place] [address] Dec, [facility] [address] [id number] [address] [place] [address], [place] [address] Dec, [facility] [address] [id number] [address] [place] [address], [place] [address] Dec, [facility] [address] [id number] [address] [place] [address], [place] [address] Dec, [facility] [address] [id number] [address] [place] [address], [place] [address] Dec, [facility] [address] [id number] [address] [place] [address], [place] [address] Dec, [facility] [address] [id number] [address] [place] [address], [place] [address] Oct, [facility] [address] [id number] [address] [place] [address], [place] [address] Oct, [facility] [address] [id number] [address] [place] [address], [place] [address] September, [facility] [address] [id number] [address] [place] [address], [place] [address] September, [facility] [address] [id number] [address] [place] [address], [place] [address] September, [facility] [address] [id number] [address] [place] [address], [place] [address] September, [facility] [address] [id number] [address] [place] [address], [place] [address] September, [facility] [address] [id number] [address] [place] [address], [place] [address] September, [facility] [address] [id number] [address] [place] [address], [place] [address] September, [facility] [address] [id number] [address] [place] [address], [place] [address] Aug, 2013 [facility] [address] [id number] [address] [place] [address], [place] [address] 15 Aug, 2013 [facility] [address] [id number] [address] [place] [address], [place] [address] 24 Jul, 2013 [facility] [address] [id number] [address] [place] [address], [place] [address] Jul, [facility] [address] [id number] [address] [place] [address], [place] [address] Jul, [facility] [address] [id number] [address] [place] [address], [place] [address] Jul, [facility] [address] [id number] [address] [place] [address], [place] [address] Jul, [facility] [address] [id number] [address] [place] [address], [place] [address] Jul, [facility] [address] [id number] [address] [place] [address], [place] [address] Jul, [facility] [address] [id number] [address] [place] [address], [place] [address] Jul, [facility] [address] [id number] [address] [place] [address], [place] [address] May, [facility] [address] [id number] [address] [place] [address], [place] [address] May, [facility] [address] [id number] [address] [place] [address], [place] [address] May, [facility] [address] [id number] [address] [place] [address], [place] [address] May, [facility] [address] [id number] [address] [place] [address], [place] [address] 18 Apr, 2013 [facility] [address] [id number] [address] [place] [address], [place] [address] Mar, [facility] [address] [id number] [address] [place] [address], [place] [address] 20 Mar, 2013 [facility] [address] [id number] [address] [place] [address], [place] [address] Mar, [facility] [address] [id number] [address] [place] [address], [place] [address] Mar, [facility] [address] [id number] [address] [place] [address], [place] [address] 18 Mar, 2013 [facility] [address] [id number] [address] [place] [address], [place] [address] 18 Mar, 2013 [facility] [address] [id number] [address] [place] [address], [place] [address] Mar, [facility] [address] [id number] [address] [place] [address], [place] [address] 18 Mar, 2013 [facility] [address] [id number] [address] [place] [address], [place] [address] Mar, [facility] [address] [id number] [address] [place] [address], [place] [address] Mar, [facility] [address] [id number] [address] [place] [address], [place] [address] 04 Mar, 2013 [facility] [address] [id number] [address] [place] [address], [place] [address] 04 Mar, 2013 [facility] [address] [id number] [address] [place] [address], [place] [address] 15 Feb, 2013 [facility] [address] [id number] [address] [place] [address], [place] [address] 15 Feb, 2013 [facility] [address] [id number] [address] [place] [address], [place] [address] 11 Feb, 2013 [facility] [address] [id number] [address] [place] [address] 11 Feb, 2013 [facility] [address] [id number] [address] [place] [address] Feb, [facility] [address] [id number] [address] [place] [address], [place] [address] Jan, [facility] [address] [id number] [address] [place] [address], [place] [address] Dec, [facility] [address] [id number] [address] [place] [address], [place] [address] Dec, [facility] [address] [id number] [address] [place] [address], [place] [address] Dec, [facility] [address] [id number] [address] [place] [address], [place] [address] Nov, [facility] [address] [id number] [address] [place] [address], [place] [address] Nov, [facility] [address] [id number] [address] [place] [address], [place] [address] Nov, [facility] [address] [id number] [address] [place] [address], [place] [address] Oct, [facility] [address] [id number] [address] [place] [address], [place] [address] Oct, [facility] [address] [id number] [address] [place] [address], [place] [address] Oct, [facility] [address] [id number] [address] [place] [address], [place] [address] September, [facility] [address] [id number] [address] [place] [address], [place] [address] September, [facility] [address] [id number] [address] [place] [address], [place] [address] September, [facility] [address] [id number] [address] [place] [address], [place] [address] September, [facility] [address] [id number] [address] [place] [address], [place] [address] September, [facility] [address] [id number] [address] [place] [address], [place] [address] 29 Aug, 2012 [facility] [place] [address] [id number] [address] [place] [address], [place] [address] Aug, [facility] [place] [address] [id number] [address] [place] [address], [place] [address] Aug, [facility] [address] [id number] [address] [place] [address], [place] [address] Jul, [facility] [place] [address] [id number] [address] [place] [address], [place] [address] Jul, [facility] [place] [address] [id number] [address] [place] [address], [place] [address] Jul, [facility] [address] [id number] [address] [place] [address], [place] [address] Jul, [facility] [address] [id number] [address] [place] [address], [place] [address] Jul, [facility] [address] [id number] [address] [place] [address], [place] [address] Jul, [facility] [address] [id number] [address] [place] [address], [place] [address] Jul, [facility] [address] [id number] [address] [place] [address], [place] [address] May, [facility] [address] [id number] [address] [place] [address], [place] [address] May, [facility] [address] [id number] [address] [place] [address], [place] [address] May, [facility] [address] [id number] [address] [place] [address], [place] [address] Apr, [facility] [address] [id number] [address] [place] [address], [place] [address] Apr, [facility] [place] [address] [id number] [address] [place] [address], [place] [address] Apr, [facility] [address] [id number] [address] [place] [address], [place] [address] Apr, [facility] [address] [id number] [address] [place] [address], [place] [address] Apr, [facility] [address] [id number] [address] [place] [address], [place] [address] Mar, [facility] [address] [id number] [address] [place] [address], [place] [address] Mar, [facility] [address] [id number] [address] [place] [address], [place] [address] Mar, [facility] [address] [id number] [address] [place] [address], [place] [address] Mar, [facility] [address] [id number] [address] [place] [address], [place] [address] Feb, [facility] [address] [id number] [address] [place] [address], [place] [address] Feb, [facility] [address] [id number] [address] [place] [address], [place] [address] Feb, [facility] [address] [id number] [address] [place] [address] Feb, [facility] [address] [id number] [address] [place] [address] Feb, [facility] [address] [id number] [address] [place] [address] Jan, [facility] [address] [id number] [address] [place] [address], [place] [address] Dec, [facility] [address] [id number] [address] [place] [address] Dec, [facility] [address] [id number] [address] [place] [address] Dec, [facility] [address] [id number] [address] [place] [address] 13 Nov, 2011 [facility] [address] [id number] [address] [place] [address], [place] [address] 12 Nov, 2011 [facility] [address] [id number] [address] [place] [address], [place] [address] Nov, [facility] [address] [id number] [address] [place] [address], [place] [address] 29 Oct, 2011 [facility] [address] [id number] [address] [place] [address], [place] [address] Oct, [facility] [address] [id number] [address] [place] [address], [place] [address] 18 Oct, 2011 [facility] [address] [id number] [address] [place] [address], [place] [address] Oct, [facility] [address] [id number] [address] [place] [address], [place] [address] September, [facility] [address] [id number] [address] [place] [address], [place] [address] September, [facility] [address] [id number] [address] [place] [address], [place] [address] 30 Aug, 2011 [facility] [address] [id number] [address] [place] [address], [place] [address] 23 Aug, 2011 [facility] [address] [id number] [address] [place] [address], [place] [address] Aug, [facility] [address] [id number] [address] [place] [address], [place] [address] Aug, [facility] [address] [id number] [address] [place] [address], [place] [address] 06 Aug, 2011 [facility] [address] [id number] [address] [place] [address], [place] [address] 05 Aug, 2011 [facility] [address] [id number] [address] [place] [address], [place] [address] 05 Aug, 2011 [facility] [address] [id number] [address] [place] [address], [place] [address] 09 Jul, 2011 [facility] [address] [id number] [address] [place] [address], [place] [address] Jul, [facility] [address] [id number] [address] [place] [address], [place] [address] 14 Jul, 2011 [facility] [address] [id number] [address] [place] [address], [place] [address] May, [facility] [address] [id number] [address] [place] [address], [place] [address] May, [facility] [address] [id number] [address] [place] [address], [place] [address] May, [facility] [address] [id number] [address] [place] [address], [place] [address] Apr, [facility] [address] [id number] [address] [place] [address], [place] [address] Apr, [facility] [address] [id number] [address] [place] [address], [place] [address] Mar, [facility] [address] [id number] [address] [place] [address], [place] [address] Mar, [facility] [address] [id number] [address] [place] [address], [place] [address] Mar, [facility] [address] [id number] [address] [place] [address], [place] [address] Mar, [facility] [address] [id number] [address] [place] [address], [place] [address] 07 Mar, 2011 [facility] [address] [id number] [address] [place] [address], [place] [address] 04 Mar, 2011 [facility] [address] [id number] [address] [place] [address], [place] [address] 21 Feb, 2011 [facility] [address] [id number] [address] [place] [address] [address] Feb, [facility] [address] [facility] [id number] [address] [place] [address] Feb, IMMUNIZATIONS No Known Immunizations SOCIAL HISTORY Never Assessed REASON FOR VISIT PLAN OF CARE VITAL SIGNS Height 72 in 2014-04-24 Weight 269 lbs 2014-04-24 Temperature 98 degrees Fahrenheit 2014-04-24 Heart Rate 80 bpm 2014-04-24 Respiratory Rate 20 2014-04-24 Blood pressure systolic 138 mmHg 2014-04-24 Blood pressure diastolic 74 mmHg 2014-04-24 MEDICATIONS Unknown Medications RESULTS No Results PROCEDURES Procedure Date Ordered Result Body Site POLYSOMNOGRAPHY W/CPAP Apr 24, 2014 INSTRUCTIONS MEDICATIONS ADMINISTERED No Known Medications [...] foot infections x 3 2015 Hospitalization History [facility] - right big t oe removed 2018
--- OUTSIDE RECORDS SUMMARY | 2020-01-03 07:39 | XMS REPORT ---
Author Author Tra SILVERIO Organization [facility] Address [address] [place] [address] Care Team Providers Care Waist Presser Name Role Phone FERNY SILVERIO Unavailable PROBLEMS Type Condition ICD9-CM Code [id number] Code Onset Dates Condition S tatus SNOMED Code Problem Anxiety F41.9 Active 87482130 Problem PAD (peripheral artery disease) I73.9 Active 130686512 Problem Lumbar radiculopathy, chronic M54.16 Active 404526456 Problem Hypertension I10 Active 4889134 3 Problem Morbid (severe) obesity due to excess calories E66 .01 Active 462306870 Problem Hypoxia R09.02 Active 516054578 Problem Arthritis M19.90 Active 8298079 Problem COPD (chronic obstructive pulmonary disease) J44.9 Active 31845301 Problem Recurrent major depressive disorder, in full remission F33.42 Active 605928575 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 [address] [address] May, Back pain M54.[address] [facility] [address] [address] May, [facility] [address] [address] May, Type 2 diabetes mellitus with diabetic p eripheral angiopathy without gangrene E11.51 ; Arthritis M19.90 ; ED (erectile dysfunction) of organic origin N52.9 ; Morbid (severe) obesity due to excess calories E66.01 and Lumbar radiculopathy, chronic M54.16 [place] [address] [address] May, Diabetes E11.9 [place] [address] [address] Apr, [place] [address] [address] Apr, Back pain M54.9 [place] [address] [address] Apr, [place] [address] [address] Apr, Anxiety F41.9 [place] [address] [address] Apr, Back pain M54.9 and Lumbar radiculopathy , chronic M54.16 [place] [address] [address] Apr, Back pain M54.9 ; Anxiety F41.9 and Lumb ar radiculopathy, chronic M54.16 [place] [address] [address] Mar, [place] [address] [address] Mar, [place] [address] [address] Mar, Back pain M54.9 [place] [address] [address] Mar, [place] [address] [address] Feb, Type 2 diabetes mellitus with diabetic p eripheral angiopathy without gangrene E11.51 ; Lumbar radiculopathy, chronic M54.16 ; ED (erectile dysfunction) of organic origin N52.9 ; Encounter for immunization Z23 ; COPD (chronic obstructive pulmonary disease) J44.[address] [facility] [address] [address] Feb, Back pain M54.9 [facility] [address] [address] Feb, [facility] [address] [address] Feb, [facility] [address] [address] Feb, [facility] [address] [address] Feb, Back pain M54.9 [facility] [address] [address] Feb, [facility] [address] [address] Jan, Anxiety F41.9 [facility] [address] [address] Jan, Anxiety F41.9 [facility] [address] [address] Jan, [facility] [address] [address] Jan, [facility] [address] [address] Jan, Back pain M54.9 [facility] [address] [address] Jan, [facility] [address] [address] Dec, Acute non-recurrent frontal sinusitis J0 1.10 [facility] [address] [address] Dec, Acute non-recurrent frontal sinusitis J0 1.10 [facility] [address] [address] Dec, Type 2 diabetes mellitus with diabetic p eripheral angiopathy without gangrene E11.51 ; Lumbar radiculopathy, chronic M54.16 ; Recurrent major depressive disorder, in full remission F33.[address] [facility] [address] [address] Dec, [facility] [address] [address] Nov, Anxiety F41.9 [facility] [address] [address] Nov, [facility] [address] [address] Nov, Back pain M54.9 [facility] [address] [address] Nov, [facility] [address] [address] Nov, Back pain M54.9 [facility] [address] [address] Nov, Anxiety F41.9 [facility] [address] [address] Nov, [facility] [address] [address] Oct, Back pain M54.9 [facility] [address] [address] Oct, [facility] [address] [address] Oct, [facility] [address] [address] Oct, [facility] [address] [address] September, Back pain M54.9 [facility] [address] [address] September, [facility] [address] [address] September, [facility] [address] [address] September, [facility] [address] [address] Aug, Back pain M54.9 [place] [address] [address] Aug, Anxiety F41.9 [place] [address] [address] Aug, [place] [address] [address] Aug, Pressure ulcer of other site, stage 3 L8 9.893 and COPD (chronic obstructive pulmonary disease) J44.9 [place] [address] [address] Aug, History of smoking Z87.891 [place] [address] [address] Jul, Type 2 diabetes mellitus with diabetic p eripheral angiopathy without gangrene E11.51 [place] [address] [address] Jul, Back pain M54.9 [facility] [address] [address] Jul, Anxiety F41.9 [facility] [address] [address] Jul, [place] [address] [address] Jul, Back pain M54.9 [facility] [address] [address] Jul, Back pain M54.9 [facility] [address] [address] Jul, Lumbar radiculopathy, chronic M54.16 ; H ypertension I10 and Type 2 diabetes mellitus with diabetic peripheral angiopathy without gangrene E11.51 [place] [address] [address] Jul, Back pain M54.9 [place] [address] [address] Jul, Back pain M54.9 and Anxiety F41.9 [place] [address] [address] Jul, [place] [address] [address] May, Back pain M54.9 and Anxiety F41.9 [place] [address] [address] May, [place] [address] [address] Apr, Radiculopathy of lumbar region M54.16 ; Back pain M54.9 and Anxiety F41.9 [place] [address] [address] Apr, Diabetes E11.9 ; Muscle spasm M62.838 an d Lumbar radiculopathy, chronic M54.16 [place] [address] [address] Apr, [place] [address] [address] Apr, [facility] [address] [address] Mar, Back pain M54.9 and Anxiety F41.9 [place] [address] [address] Mar, [facility] [address] [address] Mar, [facility] [address] [address] Mar, [facility] [address] [address] Mar, Encounter for immunization Z23 [facility] [address] [address] Feb, Back pain M54.9 and Anxiety F41.9 [place] [address] [address] Feb, Back pain M54.9 and Anxiety F41.9 [place] [address] [address] Jan, Back pain M54.9 and Anxiety F41.9 [place] [address] [address] Jan, [facility] [address] [address] Dec, [facility] [address] [address] Dec, Back pain M54.9 and Anxiety F41.9 [place] [address] [address] Dec, Diabetes E11.9 ; Type 2 diabetes mellitu s with diabetic peripheral angiopathy without gangrene E11.51 ; Lumbar radiculopathy, chronic M54.16 ; COPD (chronic obstructive pulmonary disease) J44.[address] [facility] [address] [address] Dec, Back pain M54.[address] [facility] [address] [address] Nov, Back pain M54.9 and Anxiety F41.9 [place] [address] [address] Oct, [facility] [address] [address] Oct, Back pain M54.9 and Anxiety F41.9 [place] [address] [address] September, Anxiety F41.9 and Back pain M54.9 [place] [address] [address] September, Diabetes E11.9 ; Hypertension I10 ; COPD (chronic obstructive pulmonary disease) J44.9 and Lumbar radiculopathy, chronic M54.16 [place] [address] [address] September, Anxiety F41.9 [place] [address] [address] Aug, [place] [address] [address] Aug, [place] [address] [address] Aug, Anxiety F41.9 and Back pain M54.9 [place] [address] [address] Aug, Medicare annual wellness visit, initial Z00.00 ; COPD (chronic obstructive pulmonary disease) J44.9 ; PAD (peripheral artery disease) I73.9 ; Insulin long-term use Z79.4 ; Hypertension I10 ; Anxiety F41.9 ; Recurrent major depressive disorder, in full remission F33.42 ; Pressure ulcer of other site, stage 3 L89.893 ; Type 2 diabetes mellitus with diabetic peripheral angiopathy without gangrene E11.51 and 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 [address] [address] Jul, Anxiety F41.9 and Back pain M54.9 [facility] [address] [address] Jul, Diabetes E11.9 [facility] [address] [address] May, [facility] [address] [address] May, Diabetes E11.9 ; Anxiety F41.9 ; Back pa in M54.9 and COPD (chronic obstructive pulmonary disease) J44.9 [facility] [address] [address] May, Back pain M54.9 [facility] [address] [address] May, [facility] [address] [address] Apr, Back pain M54.9 [place] [address] [address] Mar, Back pain M54.9 [facility] [address] [address] Mar, [facility] [address] [address] 16 Mar, 2017 [facility] [address] [address] 14 Mar, 2017 Radiculopathy of lumbar region M54.16 [facility] [address] [address] 13 Mar, 2017 [facility] [address] [address] 07 Mar, 2017 Encounter for immunization Z23 and Lumba r radiculopathy, chronic M54.16 [facility] [address] [address] Mar, Back pain M54.9 and Anxiety F41.9 [facility] [address] [facility] [id number] [address] [place] [address] 10 Feb, 2017 Acute bilateral low back boy n with left-sided sciatica M54.42 and Acute bilateral low back pain with right-sided sciatica M54.41 [facility] [address] [address] Feb, [facility] [address] [address] Feb, Back pain M54.9 [facility] [address] [address] 05 Jan, 2017 Back pain M54.[address] [facility] [address] [address] 05 Jan, [address] [facility] [address] [address] 14 Dec, 2016 Diabetes E11.9 ; Back pain M54.9 ; Anxie ty F41.9 and Insulin long-term use Z79.4 [facility] [address] [address] Dec, Anxiety F41.9 [facility] [address] [address] Dec, Back pain M54.9 [facility] [address] [address] Nov, Back pain M54.9 [place] [address] [address] Oct, Back pain M54.[address] [facility] [address] [address] September, Back pain M54.9 [facility] [address] [address] September, Back pain M54.[address] [facility] [address] [address] Aug, Diabetes E11.9 ; Anxiety F41.9 ; Back pa in M54.9 and PAD (peripheral artery disease) I73.9 [facility] [address] [address] Aug, Anxiety F41.9 [place] [address] [address] Aug, Back pain M54.9 [facility] [address] [address] Jul, Back pain M54.9 [facility] [address] [address] Jul, Back pain M54.9 [facility] [address] [address] Jul, Back pain M54.9 [place] [address] [address] 16 Jul, [address] [facility] [address] [address] Jul, [facility] [address] [address] May, Back pain M54.9 [facility] [address] [address] May, Diabetes E11.9 ; Anxiety F41.9 ; Port ca theter in place Z95.828 ; Encounter for immunization Z23 and Insulin long-term use Z79.4 [facility] [address] [address] Apr, Back pain M54.9 [facility] [address] [address] Apr, Back pain M54.9 [facility] [address] [address] Apr, [facility] [address] [address] Apr, Back pain M54.9 [facility] [address] [address] Mar, COPD (chronic obstructive pulmonary dise ase) J44.9 [facility] [address] [address] Feb, [facility] [address] [address] 30 Jan, 2016 [facility] [address] [address] Jan, [facility] [address] [address] Jan, [facility] [address] [address] Jan, [facility] [address] [address] Dec, Diabetes E11.9 ; Hypoxia R09.02 and Back pain M54.9 [facility] [address] [address] Dec, [facility] [address] [address] Nov, [facility] [address] [address] Oct, Anxiety F41.9 [facility] [address] [address] Oct, Back pain M54.9 [facility] [address] [address] September, Back pain M54.9 [place] [address] [address] September, Diabetes E11.9 [place] [address] [address] September, [place] [address] [address] September, Diabetes E11.9 ; Insulin long-term use Z 79.4 and Back pain M54.9 [place] [address] [address] Aug, Back pain M54.9 [place] [address] [address] Aug, Back pain M54.9 ; Anxiety F41.9 and Arth ropathy, unspecified M12.9 [place] [address] [address] Jul, Back pain M54.9 [place] [address] [address] Jul, Anxiety F41.9 [place] [address] [address] Jul, Back pain M54.9 [place] [address] [address] Jul, [place] [address] [address] Jul, [place] [address] [address] May, Back pain M54.9 ; Diabetes E11.9 ; Insul in long-term use Z79.4 ; COPD (chronic obstructive pulmonary disease) J44.9 and Hypertension I10 [place] [address] [address] May, Chronic pain G89.29 [place] [address] [address] Apr, [facility] [address] [place] [id number] [place] [address] Apr, [facility] [address] [address] Mar, [facility] [address] [place] [id number] [place] [address] Mar, Encounter for immunization Z23 and Diabe boris E11.9 [facility] [address] [place] [id number] [place] [address] Feb, [facility] [address] [address] Feb, [facility] [address] [address] Jan, [facility] [address] [address] Jan, [facility] [address] [address] Dec, [facility] [address] [place] [id number] [place] [address] Dec, [facility] [address] [address] Dec, Unspecified arthropathy, site unspecifie d 716.90 and Diabetes mellitus type 2, uncontrolled 250.02 [facility] [address] [place] [id number] [place] [address] Dec, [facility] [address] [place] [id number] [place] [address] Nov, [facility] [address] [place] [id number] [place] [address] Oct, [facility] [address] [place] [id number] [place] [address] September, [facility] [address] [address] September, [facility] [address] [place] [id number] [place] [address] 18 Sep, 2014 [facility] [address] [facility] [id number] [place] [address] 11 Sep, 2014 [facility] [address] [facility] [id number] [place] [address] 14 Aug, 2014 [facility] [address] [id number] [place] [address] 13 Aug, 2014 [facility] [address] [facility] [id number] [place] [address] 18 Jul, 2014 [facility] [address] [facility] [id number] [place] [address] 18 Jul, 2014 [facility] [address] [id number] [place] [address] 16 Jul, 2014 [facility] [address] [id number] [place] [address] 16 Jul, 2014 [facility] [address] [id number] [place] [address] 16 Jul, 2014 [facility] [address] [facility] [id number] [place] [address] 16 Jul, 2014 [facility] [address] [id number] [place] [address] 16 Jul, 2014 [facility] [address] [id number] [place] [address] 16 Jul, 2014 [facility] [address] [id number] [place] [address] 16 Jul, 2014 [facility] [address] [facility] [id number] [place] [address] 13 Jul, 2014 [facility] [address] [id number] [place] [address] 13 Jul, 2014 [facility] [address] [id number] [place] [address] 09 Jul, 2014 [facility] [address] [id number] [place] [address] Jul, 2014 [facility] [address] [facility] [id number] [place] [address] 17 Jul, 2014 [facility] [address] [id number] [place] [address] 17 Jul, 2014 [facility] [address] [id number] [place] [address] 16 Jul, 2014 [facility] [address] [id number] [place] [address] 16 Jul, 2014 [facility] [address] [facility] [id number] [place] [address] 16 Jul, 2014 [facility] [address] [id number] [place] [address] 16 Jul, 2014 [facility] [address] [id number] [place] [address] 16 Jul, 2014 [facility] [address] [id number] [place] [address] 16 Jul, 2014 [facility] [address] [id number] [place] [address] 16 Jul, 2014 [facility] [address] [id number] [place] [address] 16 Jul, 2014 [facility] [address] [id number] [place] [address] 16 Jul, 2014 [facility] [address] [id number] [place] [address] 16 Jul, 2014 [facility] [address] [id number] [place] [address] 16 Jul, 2014 [facility] [address] [id number] [place] [address] 16 Jul, 2014 [facility] [address] [id number] [place] [address] 16 Jul, 2014 [facility] [address] [id number] [place] [address] 16 Jul2014 [facility] [address] [id number] [place] [address] May, [facility] [address] [id number] [place] [address] May, [facility] [address] [id number] [place] [address] May, [facility] [address] [id number] [place] [address] May, [facility] [address] [id number] [place] [address] May, [facility] [address] [id number] [place] [address] May, [facility] [address] [id number] [place] [address] May, [facility] [address] [id number] [place] [address] May, [facility] [address] [id number] [place] [address] May, [facility] [address] [id number] [place] [address] May, [facility] [address] [id number] [place] [address] Apr, [facility] [address] [id number] [place] [address] Apr, [facility] [address] [id number] [place] [address] Apr, [facility] [address] [id number] [place] [address] Apr, [facility] [address] [id number] [place] [address] Apr, [facility] [address] [id number] [place] [address] Apr, [facility] [address] [id number] [place] [address] Mar, [facility] [address] [facility] [id number] [place] [address] Mar, [facility] [address] [id number] [place] [address] Mar, [facility] [address] [id number] [place] [address] Mar, [facility] [address] [id number] [place] [address] Mar, [facility] [address] [facility] [id number] [place] [address] Mar, [facility] [address] [id number] [place] [address] Mar, [facility] [address] [id number] [place] [address] Mar, [facility] [address] [id number] [place] [address] Mar, [facility] [address] [id number] [place] [address] Mar, [facility] [address] [id number] [place] [address] Mar, [facility] [address] [id number] [place] [address] Feb, [facility] [address] [id number] [place] [address] 30 Feb, 2014 [facility] [address] [id number] [place] [address] Feb, [facility] [address] [id number] [place] [address] 15 Feb, 2014 [facility] [address] [id number] [place] [address] Feb, [facility] [address] [id number] [place] [address] Feb, [facility] [address] [id number] [place] [address] Feb, [facility] [address] [id number] [place] [address] Feb, [facility] [address] [facility] [id number] [place] [address] Feb, [facility] [address] [id number] [place] [address] Feb, [facility] [address] [id number] [place] [address] Jan, [facility] [address] [id number] [place] [address] Jan, [facility] [address] [id number] [place] [address] Jan, [facility] [address] [id number] [place] [address] Jan, [facility] [facility] [address] [id number] [place] [address] Jan, [facility] [address] [id number] [place] [address] Jan, [facility] [address] [id number] [place] [address] Jan, [facility] [address] [id number] [place] [address] Dec, [facility] [address] [id number] [place] [address] Dec, [facility] [address] [id number] [place] [address] Dec, [facility] [address] [id number] [place] [address] Dec, [facility] [address] [id number] [place] [address] Dec, [facility] [address] [id number] [place] [address] Dec, [facility] [address] [id number] [place] [address] Dec, [facility] [address] [id number] [place] [address] Dec, [facility] [address] [id number] [place] [address] Oct, [facility] [address] [id number] [place] [address] Oct, [facility] [address] [id number] [place] [address] September, [facility] [address] [id number] [place] [address] September, [facility] [address] [id number] [place] [address] September, [facility] [address] [id number] [place] [address] September, [facility] [address] [id number] [place] [address] September, [facility] [address] [id number] [place] [address] September, [facility] [address] [id number] [place] [address] September, [facility] [address] [id number] [place] [address] Aug, [facility] [address] [id number] [place] [address] Aug, [facility] [address] [id number] [place] [address] Jul, [facility] [address] [id number] [place] [address] Jul, [facility] [address] [id number] [place] [address] Jul, [facility] [address] [id number] [place] [address] 17 Jul, 2013 [facility] [address] [id number] [place] [address] 14 Jul, 2013 [facility] [address] [id number] [place] [address] 14 Jul, 2013 [facility] [address] [id number] [place] [address] Jul, [facility] [address] [id number] [place] [address] Jul, [facility] [address] [id number] [place] [address] 15 May, 2013 [facility] [address] [id number] [place] [address] 15 May, 2013 [facility] [id number] [place] [address] May, [facility] [address] [id number] [place] [address] May, [facility] [address] [id number] [place] [address] Apr, [facility] [id number] [place] [address] Mar, [facility] [address] [id number] [place] [address] Mar, [facility] [id number] [place] [address] Mar, [facility] [address] [id number] [place] [address] Mar, [facility] [id number] [place] [address] 18 Mar, 2013 [facility] [address] [id number] [place] [address] 18 Mar, 2013 [facility] [address] [id number] [place] [address] Mar, [facility] [address] [id number] [place] [address] Mar, [facility] [address] [id number] [place] [address] Mar, [facility] [address] [id number] [place] [address] Mar, [facility] [address] [id number] [place] [address] Mar, [facility] [address] [id number] [place] [address] Mar, [facility] [address] [id number] [place] [address] Feb, [facility] [address] [id number] [place] [address] Feb, [facility] [address] [id number] [place] [address] Feb, [facility] [address] [id number] [place] [address] Feb, [facility] [address] [id number] [place] [address] Feb, [facility] [address] [id number] [place] [address] Jan, [facility] [address] [id number] [place] [address] Dec, [facility] [address] [id number] [place] [address] Dec, [facility] [address] [id number] [place] [address] Dec, [facility] [address] [id number] [place] [address] Nov, [facility] [address] [id number] [place] [address] Nov, [facility] [address] [id number] [place] [address] Nov, [facility] [address] [id number] [place] [address] Oct, [facility] [address] [id number] [place] [address] Oct, [facility] [address] [id number] [place] [address] Oct, [facility] [address] [id number] [place] [address] September, [facility] [address] [facility] [id number] [place] [address] September, [facility] [address] [id number] [place] [address] September, [facility] [address] [id number] [place] [address] September, [facility] [address] [id number] [place] [address] September, [facility] [address] [id number] [place] [address] Aug, [facility] [address] [id number] [place] [address] Aug, [facility] [address] [id number] [place] [address] Aug, [facility] [address] [id number] [place] [address] Jul, [facility] [address] [id number] [place] [address] Jul, [facility] [address] [id number] [place] [address] Jul, [facility] [address] [id number] [place] [address] Jul, [facility] [address] [id number] [place] [address] Jul, [facility] [address] [id number] [place] [address] Jul, [facility] [address] [id number] [place] [address] Jul, [facility] [address] [id number] [place] [address] May, [facility] [address] [id number] [place] [address] May, [facility] [address] [id number] [place] [address] May, [facility] [address] [id number] [place] [address] Apr, [facility] [address] [id number] [place] [address] Apr, [facility] [id number] [place] [address] Apr, [facility] [address] [id number] [place] [address] Apr, [facility] [address] [id number] [place] [address] Apr, [facility] [id number] [place] [address] Mar, [facility] [address] [id number] [place] [address] Mar, [facility] [id number] [place] [address] Mar, [facility] [address] [id number] [place] [address] Mar, [facility] [id number] [place] [address] Feb, [facility] [address] [id number] [place] [address] Feb, [facility] [address] [id number] [place] [address] Feb, [facility] [address] [id number] [place] [address] Feb, [facility] [address] [id number] [place] [address] Feb, [facility] [address] [id number] [place] [address] Jan, [facility] [address] [id number] [place] [address] Dec, [facility] [address] [id number] [place] [address] Dec, [facility] [address] [id number] [place] [address] Dec, [facility] [address] [id number] [place] [address] Nov, [facility] [address] [id number] [place] [address] Nov, [facility] [address] [id number] [place] [address] Nov, [facility] [address] [id number] [place] [address] Oct, [facility] [address] [id number] [place] [address] Oct, [facility] [address] [id number] [place] [address] Oct, [facility] [address] [id number] [place] [address] Oct, [facility] [address] [id number] [place] [address] September, [facility] [id number] [place] [address] September, [facility] [address] [id number] [place] [address] 30 Aug, 2011 [facility] [address] [id number] [place] [address] Aug, [facility] [address] [id number] [place] [address] Aug, [facility] [address] [id number] [place] [address] Aug, [facility] [address] [id number] [place] [address] Aug, [facility] [address] [id number] [place] [address] Aug, [facility] [address] [id number] [place] [address] Aug, [facility] [address] [id number] [place] [address] Jul, [facility] [address] [id number] [place] [address] Jul, [facility] [address] [id number] [place] [address] Jul, [facility] [address] [id number] [place] [address] May, [facility] [address] [id number] [place] [address] May, [facility] [address] [id number] [place] [address] May, [facility] [address] [id number] [place] [address] Apr, [facility] [address] [id number] [place] [address] Apr, [facility] [address] [id number] [place] [address] Mar, [facility] [address] [id number] [place] [address] Mar, [facility] [address] [id number] [place] [address] Mar, [facility] [address] [id number] [place] [address] Mar, [facility] [address] [id number] [place] [address] Mar, [facility] [address] [id number] [place] [address] Mar, [facility] [address] [id number] [place] [address] Feb, [facility] [address] [id number] [place] [address] Feb, [facility] [address] [id number] [place] [address] Feb, IMMUNIZATIONS No Known Immunizations SOCIAL HISTORY [...] infections x 3 2015 Hospitalization History [facility] - right big t oe removed 2018
--- OUTSIDE RECORDS SUMMARY | 2020-01-03 07:39 | XMS REPORT ---
Author Author Tra SILVERIO Organization [facility] Address [address] [place] [address] Care Team Providers Care Director Of Community Services Name Role Phone FERNY SILVERIO Unavailable PROBLEMS Type Condition ICD9-CM Code PXJ03-BD Code Onset Dates Condition S tatus SNOMED Code Problem Hypertension I10 Active 1563009 3 Problem Hypoxia R09.02 Active 157634535 Problem COPD (chronic obstructive pulmonary disease) J44.9 Active 17007576 Problem Lumbar radiculopathy, chronic M54.16 Active 402441594 Problem correction current use of insulin Z79.4 Active 305081649 Problem Recurrent major depressive disorder, in full remission F33.42 Active 997268092 Problem Hyperlipidemia, unspecified E78.5 Ac tive 31157420 Problem PAD (peripheral artery disease) I73.9 Active 934666621 Problem Type 2 diabetes mellitus with other specified complication E11.69 Active 003812516277 Problem Anxiety F41.9 Active 61371984 Problem Type 2 diabetes mellitus wit h diabetic peripheral angiopathy without gangrene E11.51 Active 791787014 Problem ED (erectile dysfunction) of organic origin N52.9 Active 683620668 Problem Arthritis M19.90 Active 7930665 Problem Morbid (severe) obesity due to excess calories E66 .01 Active 592336355 ALLERGIES No Information ENCOUNTERS Encounter Location Date Diagnosis [facility] [address] [facility] [id number] [place] [address] 07 Jul, 2019 Encounter for Medicare annual [...] diabetes mellitus with other specified complication E11.69 [facility] [address] [address] Jul, Back pain M54.9 [facility] [address] [address] Jul, Anxiety F41.9 [facility] [address] [address] May, [facility] [address] [address] May, Lumbar radiculopathy, chronic M54.16 [facility] [address] [address] May, Back pain M54.9 [facility] [address] [address] May, [facility] [address] [address] May, Back pain M54.9 and Anxiety F41.9 [facility] [address] [address] May, [place] [address] [address] May, Type 2 diabetes mellitus with diabetic p eripheral angiopathy without gangrene E11.51 ; Arthritis M19.90 ; ED (erectile dysfunction) of organic origin N52.9 ; Morbid (severe) obesity due to excess calories E66.01 and Lumbar radiculopathy, chronic M54.16 [facility] [address] [address] May, Diabetes E11.9 [facility] [address] [address] Apr, [facility] [address] [address] Apr, Back pain M54.9 [facility] [address] [address] Apr, [facility] [address] [address] Apr, Anxiety F41.9 [facility] [address] [address] Apr, Back pain M54.9 and Lumbar radiculopathy , chronic M54.16 [facility] [address] [address] Apr, Back pain M54.9 ; Anxiety F41.9 and Lumb ar radiculopathy, chronic M54.16 [facility] [address] [address] Mar, [facility] [address] [address] Mar, [place] [address] [address] Mar, Back pain M54.9 [facility] [address] [address] Mar, [place] [address] [address] Feb, Type 2 diabetes mellitus with diabetic p eripheral angiopathy without gangrene E11.51 ; Lumbar radiculopathy, chronic M54.16 ; ED (erectile dysfunction) of organic origin N52.9 ; Encounter for immunization Z23 ; COPD (chronic obstructive pulmonary disease) J44.9 and Anxiety F41.9 [facility] [address] [address] Feb, Back pain M54.9 [facility] [address] [address] Feb, [facility] [address] [address] Feb, [facility] [address] [address] Feb, [facility] [address] [address] Feb, Back pain M54.9 [facility] [address] [address] Feb, [facility] [address] [address] Jan, Anxiety F41.9 [facility] [address] [address] Jan, Anxiety F41.9 [facility] [address] [address] Jan, [facility] [address] [address] Jan, [facility] [address] [address] Jan, Back pain M54.9 [facility] [address] [address] Jan, [facility] [address] [address] Dec, Acute non-recurrent frontal sinusitis J0 1.10 [facility] [address] [address] Dec, Acute non-recurrent frontal sinusitis J0 1.10 [facility] [address] [address] Dec, Type 2 diabetes mellitus with diabetic p eripheral angiopathy without gangrene E11.51 ; Lumbar radiculopathy, chronic M54.16 ; Recurrent major depressive disorder, in full remission F33.42 and Anxiety F41.9 [facility] [address] [address] Dec, [facility] [address] [address] Nov, Anxiety F41.9 [facility] [address] [id number] [place] [address] Nov, [facility] [address] [id number] [place] [address] Nov, Back pain M54.9 [facility] [address] [id number] [place] [address] Nov, [facility] [address] [place] [id number] [place] [address] Nov, Back pain M54.9 [facility] [address] [id number] [place] [address] Nov, Anxiety F41.9 [facility] [address] [id number] [place] [address] Nov, [facility] [address] [place] [id number] [place] [address] Oct, Back pain M54.9 [facility] [address] [id number] [place] [address] Oct, [facility] [address] [id number] [place] [address] Oct, [facility] [address] [id number] [place] [address] Oct, [facility] [id number] [place] [address] September, Back pain M54.9 [facility] [address] [address] [id number] [place] [address] September, [facility] [address] [id number] [place] [address] September, [facility] [address] [place] [id number] [place] [address] September, [facility] [address] [id number] [place] [address] Aug, Back pain M54.9 [facility] [address] [address] 17 Aug, 2018 Anxiety F41.9 [place] [address] [address] Aug, [place] [address] [address] Aug, Pressure ulcer of other site, stage 3 L8 9.893 and COPD (chronic obstructive pulmonary disease) J44.9 [place] [address] [address] Aug, History of smoking Z87.891 [place] [address] [address] Jul, Type 2 diabetes mellitus with diabetic p eripheral angiopathy without gangrene E11.51 [place] [address] [address] Jul, Back pain M54.9 [place] [address] [address] Jul, Anxiety F41.9 [place] [address] [address] 18 Jul, 2018 [place] [address] [address] Jul, Back pain M54.9 [place] [address] [address] Jul, Back pain M54.9 [place] [address] [address] Jul, Lumbar radiculopathy, chronic M54.16 ; H ypertension I10 and Type 2 diabetes mellitus with diabetic peripheral angiopathy without gangrene E11.51 [place] [address] [address] Jul, Back pain M54.9 [place] [address] [address] Jul, Back pain M54.9 and Anxiety F41.9 [facility] [address] [address] Jul, [facility] [address] [address] May, Back pain M54.9 and Anxiety F41.9 [place] [address] [address] May, [facility] [address] [address] Apr, Radiculopathy of lumbar region M54.16 ; Back pain M54.9 and Anxiety F41.9 [place] [address] [address] Apr, Diabetes E11.9 ; Muscle spasm M62.838 an d Lumbar radiculopathy, chronic M54.16 [place] [address] [address] Apr, [facility] [address] [address] Apr, [facility] [address] [address] Mar, Back pain M54.9 and Anxiety F41.9 [place] [address] [address] Mar, [facility] [address] [address] Mar, [facility] [address] [address] Mar, [place] [address] [address] Mar, Encounter for immunization Z23 [facility] [address] [address] Feb, Back pain M54.9 and Anxiety F41.9 [facility] [address] [address] Feb, Back pain M54.9 and Anxiety F41.9 [facility] [address] [address] Jan, Back pain M54.9 and Anxiety F41.9 [facility] [address] [address] Jan, [facility] [address] [address] Dec, [facility] [address] [address] Dec, Back pain M54.9 and Anxiety F41.9 [facility] [address] [address] Dec, Diabetes E11.9 ; Type 2 diabetes mellitu s with diabetic peripheral angiopathy without gangrene E11.51 ; Lumbar radiculopathy, chronic M54.16 ; COPD (chronic obstructive pulmonary disease) J44.9 and Anxiety F41.9 [place] [address] [address] Dec, Back pain M54.9 and Anxiety F41.9 [facility] [address] [address] Nov, Back pain M54.9 and Anxiety F41.9 [facility] [address] [address] Oct, [facility] [address] [address] Oct, Back pain M54.9 and Anxiety F41.9 [facility] [address] [address] September, Anxiety F41.9 and Back pain M54.9 [facility] [address] [address] September, Diabetes E11.9 ; Hypertension I10 ; COPD (chronic obstructive pulmonary disease) J44.9 and Lumbar radiculopathy, chronic M54.16 [place] [address] [address] September, Anxiety F41.9 [place] [address] [address] Aug, [place] [address] [address] Aug, [place] [address] [address] Aug, Anxiety F41.9 and Back pain M54.9 [place] [address] [address] Aug, Medicare annual wellness visit, initial Z00.00 ; COPD (chronic obstructive pulmonary disease) J44.9 ; PAD (peripheral artery disease) I73.9 ; Insulin long-term use Z79.4 ; Hypertension I10 ; Anxiety F41.9 ; Recurrent major depressive disorder, in full remission F33.42 ; Pressure ulcer of other site, stage 3 L89.893 ; Type 2 diabetes mellitus with diabetic peripheral angiopathy without gangrene E11.51 and correction current use of insulin Z79.4 [place] [address] [address] Jul, Back pain M54.9 [place] [address] [address] Jul, [place] [address] [address] Jul, Anxiety F41.9 and Back pain M54.9 [place] [address] [address] Jul, Diabetes E11.9 [place] [address] [address] May, [place] [address] [address] May, Diabetes E11.9 ; Anxiety F41.9 ; Back pa in M54.9 and COPD (chronic obstructive pulmonary disease) J44.9 [place] [address] [address] May, Back pain M54.9 [facility] [address] [address] May, [facility] [address] [address] Apr, Back pain M54.9 [place] [address] [address] Mar, Back pain M54.9 [place] [address] [address] Mar, [place] [address] [address] Mar, [place] [address] [address] 14 Mar, 2017 Radiculopathy of lumbar region M54.16 [place] [address] [address] Mar, [place] [address] [address] 07 Mar, 2017 Encounter for immunization Z23 and Lumba r radiculopathy, chronic M54.16 [place] [address] [address] Mar, Back pain M54.9 and Anxiety F41.9 [facility] [address] [facility] [id number] [place] [address] 10 Feb, 2017 Acute bilateral low back boy n with left-sided sciatica M54.42 and Acute bilateral low back pain with right-sided sciatica M54.41 [place] [address] [address] Feb, [facility] [address] [address] Feb, Back pain M54.9 [facility] [address] [address] 05 Jan, 2017 Back pain M54.9 and Anxiety F41.9 [facility] [address] [address] 05 Jan, 2017 Diabetes E11.9 [place] [address] [address] Dec, Diabetes E11.9 ; Back pain M54.9 ; Anxie ty F41.9 and Insulin long-term use Z79.4 [place] [address] [address] Dec, Anxiety F41.9 [place] [address] [address] Dec, Back pain M54.9 [place] [address] [address] Nov, Back pain M54.9 [place] [address] [address] Oct, Back pain M54.9 and Anxiety F41.9 [place] [address] [address] September, Back pain M54.9 [place] [address] [address] September, Back pain M54.9 and Anxiety F41.9 [place] [address] [address] Aug, Diabetes E11.9 ; Anxiety F41.9 ; Back pa in M54.9 and PAD (peripheral artery disease) I73.9 [facility] [address] [address] Aug, Anxiety F41.9 [place] [address] [address] 14 Aug, 2016 Back pain M54.9 [facility] [address] [address] Jul, Back pain M54.9 [facility] [address] [address] Jul, Back pain M54.9 [facility] [address] [address] Jul, Back pain M54.9 [facility] [address] [address] 16 Jul, 2016 Dorsalgia M54.9 [facility] [address] [address] 14 Jul, 2016 [place] [address] [address] May, Back pain M54.9 [facility] [address] [address] May, Diabetes E11.9 ; Anxiety F41.9 ; Port ca theter in place Z95.828 ; Encounter for immunization Z23 and Insulin long-term use Z79.4 [place] [address] [address] Apr, Back pain M54.9 [facility] [address] [address] Apr, Back pain M54.9 [facility] [address] [address] Apr, [facility] [address] [address] Apr, Back pain M54.9 [facility] [address] [address] Mar, COPD (chronic obstructive pulmonary dise ase) J44.9 [facility] [address] [place] [address] Feb, [facility] [address] [address] 30 Jan, 2016 [facility] [address] [address] 20 Jan, 2016 [facility] [address] [address] Jan, [facility] [address] [address] Jan, [facility] [address] [address] Dec, Diabetes E11.9 ; Hypoxia R09.02 and Back pain M54.9 [facility] [id number] [place] [address] Dec, [facility] [address] [address] Nov, [facility] [address] [address] Oct, Anxiety F41.9 [facility] [address] [address] Oct, Back pain M54.9 [facility] [address] [address] September, Back pain M54.9 [facility] [address] [address] September, Diabetes E11.9 [facility] [address] [address] September, [facility] [address] [address] September, Diabetes E11.9 ; Insulin long-term use Z 79.4 and Back pain M54.9 [facility] [address] [address] Aug, Back pain M54.9 [facility] [address] [address] Aug, Back pain M54.9 ; Anxiety F41.9 and Arth ropathy, unspecified M12.9 [facility] [address] [address] Jul, Back pain M54.9 [facility] [address] [address] Jul, Anxiety F41.9 [facility] [address] [address] Jul, Back pain M54.9 [place] [address] [address] Jul, [place] [address] [address] Jul, [place] [address] [address] May, Back pain M54.9 ; Diabetes E11.9 ; Insul in long-term use Z79.4 ; COPD (chronic obstructive pulmonary disease) J44.9 and Hypertension I10 [place] [address] [address] May, Chronic pain G89.29 [place] [address] [address] Apr, [place] [address] [address] Apr, [place] [address] [address] Mar, [place] [address] [address] Mar, Encounter for immunization Z23 and Diabe boris E11.9 [place] [address] [address] Feb, [place] [id number] [place] [address] Feb, [facility] [id number] [place] [address] Jan, [facility] [id number] [place] [address] Jan, [facility] [id number] [place] [address] Dec, [facility] [id number] [place] [address] Dec, [facility] [id number] [place] [address] Dec, Unspecified arthropathy, site unspecifie d 716.90 and Diabetes mellitus type 2, uncontrolled 250.02 [facility] [id number] [place] [address] Dec, [facility] [id number] [place] [address] Nov, [facility] [id number] [place] [address] Oct, [facility] [id number] [place] [address] September, [facility] [id number] [place] [address] September, [facility] [id number] [place] [address] September, [facility] [id number] [place] [address] September, [facility] [id number] [place] [address] 14 Aug, 2014 [facility] [id number] [place] [address] Aug, [facility] [id number] [place] [address] Jul, [facility] [address] [facility] [id number] [place] [address] 18 Jul, 2014 [facility] [address] [id number] [place] [address] 16 Jul, 2014 [facility] [address] [id number] [place] [address] 16 Jul, 2014 [facility] [address] [id number] [place] [address] 16 Jul, 2014 [facility] [address] [facility] [id number] [place] [address] 16 Jul, 2014 [facility] [address] [id number] [place] [address] 16 Jul, 2014 [facility] [address] [id number] [place] [address] 16 Jul, 2014 [facility] [address] [id number] [place] [address] 16 Jul, 2014 [facility] [address] [id number] [place] [address] Jul, 2014 [facility] [address] [id number] [place] [address] Jul, 2014 [facility] [address] [id number] [place] [address] 09 Jul, 2014 [facility] [address] [id number] [place] [address] 09 Jul, 2014 [facility] [address] [id number] [place] [address] 17 Jul, 2014 [facility] [address] [facility] [id number] [place] [address] 17 Jul, 2014 [facility] [address] [id number] [place] [address] 16 Jul, 2014 [facility] [address] [id number] [place] [address] 16 Jul, 2014 [facility] [address] [id number] [place] [address] 16 Jul, 2014 [facility] [address] [facility] [id number] [place] [address] Jul, 2014 [facility] [address] [id number] [place] [address] Jul, 2014 [facility] [address] [id number] [place] [address] Jul, 2014 [facility] [address] [id number] [place] [address] Jul, 2014 [facility] [address] [id number] [place] [address] Jul, 2014 [facility] [address] [id number] [place] [address] Jul, 2014 [facility] [address] [id number] [place] [address] Jul, 2014 [facility] [address] [id number] [place] [address] Jul, 2014 [facility] [address] [id number] [place] [address] Jul, 2014 [facility] [address] [id number] [place] [address] Jul, 2014 [facility] [address] [id number] [place] [address] Jul, [facility] [address] [id number] [place] [address] May, [facility] [address] [id number] [place] [address] May, [facility] [address] [id number] [place] [address] May, [facility] [address] [id number] [place] [address] May, [facility] [address] [id number] [place] [address] May, [facility] [address] [id number] [place] [address] May, [facility] [address] [id number] [place] [address] May, [facility] [address] [id number] [place] [address] May, [facility] [address] [id number] [place] [address] May, [facility] [address] [id number] [place] [address] May, [facility] [address] [id number] [place] [address] Apr, [facility] [address] [id number] [place] [address] Apr, [facility] [address] [id number] [place] [address] Apr, [facility] [address] [id number] [place] [address] Apr, [facility] [address] [id number] [place] [address] Apr, [facility] [address] [id number] [place] [address] Apr, [facility] [address] [id number] [place] [address] Mar, [facility] [address] [id number] [place] [address] Mar, [facility] [address] [id number] [place] [address] Mar, [facility] [address] [id number] [place] [address] Mar, [facility] [address] [id number] [place] [address] Mar, [facility] [address] [id number] [place] [address] Mar, [facility] [address] [facility] [id number] [place] [address] Mar, [facility] [address] [id number] [place] [address] Mar, [facility] [address] [id number] [place] [address] Mar, [facility] [address] [id number] [place] [address] Mar, [facility] [address] [facility] [id number] [place] [address] Mar, [facility] [address] [id number] [place] [address] Feb, [facility] [address] [id number] [place] [address] Feb, [facility] [address] [id number] [place] [address] Feb, [facility] [address] [id number] [place] [address] Feb, [facility] [address] [id number] [place] [address] Feb, [facility] [address] [id number] [place] [address] Feb, [facility] [address] [id number] [place] [address] Feb, [facility] [address] [id number] [place] [address] Feb, [facility] [address] [id number] [place] [address] Feb, [facility] [address] [id number] [place] [address] Feb, [facility] [address] [id number] [place] [address] Jan, [facility] [address] [id number] [facility] [address] 22 Jan, 2014 [facility] [address] [id number] [place] [address] 16 Jan, 2014 [facility] [address] [facility] [id number] [place] [address] 16 Jan, 2014 [facility] [address] [id number] [place] [address] Jan, [facility] [address] [facility] [id number] [place] [address] Jan, [facility] [address] [facility] [id number] [place] [address] Jan, [facility] [address] [id number] [place] [address] Dec, [facility] [address] [id number] [place] [address] Dec, [facility] [address] [id number] [place] [address] Dec, [facility] [address] [facility] [id number] [place] [address] Dec, [facility] [address] [id number] [place] [address] Dec, [facility] [address] [id number] [place] [address] Dec, [facility] [address] [id number] [place] [address] Dec, [facility] [address] [facility] [id number] [place] [address] Dec, [facility] [address] [id number] [place] [address] Oct, [facility] [address] [id number] [place] [address] Oct, [facility] [address] [id number] [place] [address] September, [facility] [address] [id number] [place] [address] September, [facility] [address] [id number] [place] [address] September, [facility] [address] [id number] [place] [address] September, [facility] [address] [id number] [place] [address] September, [facility] [address] [facility] [id number] [place] [address] September, [facility] [address] [id number] [place] [address] September, [facility] [address] [id number] [place] [address] Aug, [facility] [address] [id number] [place] [address] Aug, [facility] [address] [id number] [place] [address] Jul, [facility] [address] [id number] [place] [address] Jul, [facility] [address] [id number] [place] [address] Jul, [facility] [address] [id number] [place] [address] Jul, [facility] [address] [id number] [place] [address] Jul, [facility] [address] [id number] [place] [address] Jul, [facility] [address] [id number] [place] [address] Jul, [facility] [address] [id number] [place] [address] Jul, [facility] [address] [id number] [place] [address] 15 May, 2013 [facility] [address] [id number] [place] [address] 15 May, 2013 [facility] [address] [id number] [place] [address] 14 May, 2013 [facility] [address] [id number] [place] [address] 14 May, 2013 [facility] [address] [id number] [place] [address] 18 Apr, 2013 [facility] [address] [id number] [place] [address] Mar, [facility] [address] [id number] [place] [address] Mar, [facility] [address] [id number] [place] [address] Mar, [facility] [address] [id number] [place] [address] Mar, [facility] [address] [id number] [place] [address] Mar, [facility] [address] [id number] [place] [address] Mar, [facility] [address] [id number] [place] [address] 18 Mar, 2013 [facility] [address] [id number] [place] [address] 18 Mar, 2013 [facility] [address] [id number] [place] [address] Mar, [facility] [address] [id number] [place] [address] Mar, [facility] [address] [id number] [place] [address] Mar, [facility] [address] [id number] [place] [address] Mar, [facility] [address] [id number] [place] [address] Feb, [facility] [address] [id number] [place] [address] Feb, [facility] [address] [id number] [place] [address] Feb, [facility] [address] [id number] [place] [address] Feb, [facility] [address] [id number] [place] [address] Feb, [facility] [address] [id number] [place] [address] Jan, [facility] [address] [id number] [place] [address] Dec, [facility] [address] [id number] [place] [address] Dec, [facility] [address] [id number] [place] [address] Dec, [facility] [address] [id number] [place] [address] Nov, [facility] [address] [id number] [place] [address] Nov, [facility] [address] [id number] [place] [address] Nov, [facility] [address] [id number] [place] [address] Oct, [facility] [address] [id number] [place] [address] Oct, [facility] [address] [id number] [place] [address] Oct, [facility] [address] [id number] [place] [address] September, [facility] [address] [id number] [place] [address] September, [facility] [address] [id number] [place] [address] September, [facility] [address] [id number] [place] [address] September, [facility] [address] [id number] [place] [address] September, [facility] [address] [id number] [facility] [address] Aug, [facility] [address] [id number] [facility] [place] [address] Aug, [facility] [address] [id number] [place] [address] Aug, [facility] [address] [id number] [place] [address] Jul, [facility] [address] [id number] [place] [address] Jul, [facility] [address] [id number] [place] [address] Jul, [facility] [address] [id number] [place] [address] Jul, [facility] [address] [id number] [place] [address] Jul, [facility] [address] [id number] [place] [address] Jul, [facility] [address] [id number] [place] [address] Jul, [facility] [address] [id number] [place] [address] May, [facility] [address] [id number] [place] [address] May, [facility] [address] [id number] [place] [address] May, [facility] [address] [id number] [place] [address] Apr, [facility] [address] [id number] [place] [address] Apr, [facility] [address] [id number] [place] [address] Apr, [facility] [address] [id number] [place] [address] Apr, [facility] [address] [id number] [place] [address] Apr, [facility] [address] [id number] [place] [address] Mar, [facility] [address] [id number] [place] [address] Mar, [facility] [id number] [place] [address] Mar, [facility] [address] [id number] [place] [address] Mar, [facility] [address] [id number] [place] [address] Feb, [facility] [address] [id number] [place] [address] Feb, [facility] [address] [id number] [place] [address] Feb, [facility] [address] [id number] [place] [address] Feb, [facility] [address] [id number] [place] [address] Feb, [facility] [id number] [place] [address] Jan, [facility] [address] [id number] [place] [address] Dec, [facility] [address] [id number] [place] [address] Dec, [facility] [address] [id number] [place] [address] Dec, [facility] [address] [id number] [place] [address] Nov, [facility] [address] [id number] [place] [address] Nov, [facility] [address] [id number] [place] [address] Nov, [facility] [address] [id number] [place] [address] Oct, [facility] [address] [id number] [place] [address] Oct, [facility] [address] [id number] [place] [address] Oct, [facility] [address] [id number] [place] [address] Oct, [facility] [address] [id number] [place] [address] September, [facility] [address] [id number] [place] [address] September, [facility] [address] [id number] [place] [address] 30 Aug, 2011 [facility] [address] [id number] [place] [address] Aug, [facility] [address] [id number] [place] [address] Aug, [facility] [address] [id number] [place] [address] Aug, [facility] [address] [id number] [place] [address] 06 Aug, 2011 [facility] [address] [id number] [place] [address] Aug, [facility] [address] [id number] [place] [address] 05 Aug, 2011 [facility] [address] [id number] [place] [address] Jul, [facility] [address] [id number] [place] [address] Jul, [facility] [address] [id number] [place] [address] Jul, [facility] [address] [id number] [place] [address] May, [facility] [address] [id number] [place] [address] May, [facility] [address] [id number] [place] [address] May, [facility] [address] [id number] [place] [address] Apr, [facility] [address] [id number] [place] [address] Apr, [facility] [address] [id number] [place] [address] Mar, [facility] [address] [id number] [place] [address] Mar, [facility] [address] [id number] [place] [address] Mar, [facility] [address] [id number] [place] [address] Mar, [facility] [address] [id number] [place] [address] Mar, [facility] [address] [id number] [place] [address] Mar, [facility] [address] [id number] [place] [address] Feb, [facility] [address] [id number] [place] [address] Feb, [facility] [address] [facility] [id number] [place] [address] 14 Feb, 2011 IMMUNIZATIONS No Known Immunizations SOCIAL HISTORY Never Assessed REASON FOR VISIT PLAN OF CARE VITAL SIGNS Weight 265 lbs 2013-10-17 Temperature 98.8 degrees Fahrenheit 2013-10-17 Heart Rate 80 bpm 2013-10-17 Respiratory Rate 24 2013-10-17 Blood pressure systolic 148 mmHg 2013-10-17 Blood pressure diastolic 88 mmHg 2013-10-17 MEDICATIONS No Known Medications RESULTS No Results PROCEDURES Procedure Date Ordered Result Body Site GLYCATED HEMOGLOBIN TEST October 17, 2013 INSTRUCTIONS MEDICATIONS ADMINISTERED No Known Medications [...] infections x 3 2015 Hospitalization History [facility] - right big t oe removed 2018
--- OUTSIDE RECORDS SUMMARY | 2020-01-03 07:40 | XMS REPORT ---
Author Author Tra SILVERIO Organization [facility] Address [address] [place] [address] Care Team Providers Care Fermenter Name Role Phone FERNY SILVERIO Unavailable PROBLEMS Type Condition ICD9-CM Code XOX68-PI Code Onset Dates Condition S tatus SNOMED Code Problem Insulin long-term use Z79.4 Active 792923643 Problem Hypertension I10 Active 2968910 3 Problem Diabetes E11.9 Active 11447775 Problem Hypoxia R09.02 Active 351694245 Problem Anxiety F41.9 Active 16005886 Problem Port catheter in place Z95.828 Active 757976386 Problem Pressure ulcer of other site, stage 3 L89.893 Active 510562242 Problem COPD (chronic obstructive pulmonary disease) J44.9 Active 81602315 Problem Type 2 diabetes mellitus wit h diabetic peripheral angiopathy without gangrene E11.51 Active 883671221 Problem Back pain M54.9 Active 257608729 Problem PAD (peripheral artery disease) I73.9 Active 925367803 Problem Lumbar radiculopathy, chronic M54.16 Active 667079540 Problem Recurrent major depressive disorder, in full remission F33.42 Active 072592614 Problem 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.4 Active 436198243 ALLERGIES No Information ENCOUNTERS Encounter Location Date Diagnosis [facility] [address] [facility] [id number] [address] [place] [phone] Feb, [facility] [address] [facility] [id number] [address] [place] [phone] Jan, [facility] [address] [facility] [id number] [address] [place] [address] Jan, [facility] [address] [facility] [id number] [address] [place] [address] Jan, Back pain M54.9 [facility] [address] [id number] [address] [place] [phone] Jan, [facility] [address] [id number] [address] [place] [address] Dec, Acute non-recurrent frontal sinusitis J01.10 [facility] [address] [id number] [address] [place] [address] Dec, Acute non-recurrent frontal sinusitis J01.10 [facility] [address] [id number] [address] [place] [address] Dec, Type 2 diabetes mellitus wit h diabetic peripheral angiopathy without gangrene E11.51 ; Lumbar radiculopathy, chronic M54.16 ; Recurrent major depressive disorder, in full remission F33.42 and Anxiety F41.9 [facility] [address] [id number] [address] [place] [address] Dec, [facility] [address] [id number] [address] [place] [address] Nov, Anxiety F41.9 [facility] [address] [id number] [address] [place] [address] Nov, [facility] [address] [id number] [address] [place] [address] Nov, Back pain M54.9 [facility] [address] [id number] [address] [place] [address] Nov, [facility] [address] [id number] [address] [place] [address] Nov, Back pain M54.9 [facility] [address] [id number] [address] [place] [address] Nov, Anxiety F41.9 [facility] [address] [id number] [address] [place] [address] Nov, [facility] [address] [id number] [address] [place] [phone] Oct, Back pain M54.9 [facility] [address] [id number] [address] [place] [phone] 07 Oct, 2018 [facility] [address] [id number] [address] [place] [address] Oct, [facility] [address] [id number] [address] [place] [address] Oct, [facility] [address] [id number] [address] [place] [address] September, Back pain M54.9 [facility] [address] [id number] [address] [place] [phone] September, [facility] [address] [id number] [address] [place] [address] September, [facility] [address] [id number] [address] [place] [address] September, [facility] [address] [id number] [address] [place] [address] Aug, Back pain M54.9 [facility] [address] [id number] [address] [place] [address] Aug, Anxiety F41.9 [facility] [address] [id number] [address] [place] [phone] Aug, [facility] [address] [id number] [address] [place] [address] Aug, Pressure ulcer of other site , stage 3 L89.893 and COPD (chronic obstructive pulmonary disease) J44.9 [facility] [address] [id number] [address] [place] [address] Aug, History of smoking Z87.891 [facility] [address] [id number] [address] [place] [address] Jul, Type 2 diabetes mellitus wit h diabetic peripheral angiopathy without gangrene E11.51 [facility] [address] [id number] [address] [place] [address] Jul, Back pain M54.9 [facility] [address] [id number] [address] [place] [address] Jul, Anxiety F41.9 [facility] [address] [id number] [address] [place] [address] Jul, [facility] [address] [id number] [address] [place] [address] Jul, Back pain M54.9 [facility] [address] [id number] [address] [place] [address] Jul, Back pain M54.9 [facility] [address] [id number] [address] [place] [address] Jul, Lumbar radiculopathy, chroni c M54.16 ; Hypertension I10 and Type 2 diabetes mellitus with diabetic peripheral angiopathy without gangrene E11.51 [facility] [address] [id number] [address] [place] [address] Jul, Back pain M54.9 [place] [address] [id number] [address] [place] [address] Jul, Back pain M54.9 and Anxiety F41.9 [place] [address] [id number] [address] [place] [address] Jul, [facility] [address] [facility] [id number] [address] [place] [address] May, Back pain M54.9 and Anxiety F41.9 [facility] [address] [id number] [address] [place] [address] May, [facility] [address] [facility] [id number] [address] [place] [address] Apr, Radiculopathy of lumbar rhiannon on M54.16 ; Back pain M54.9 and Anxiety F41.9 [facility] [address] [id number] [address] [place] [address] Apr, Diabetes E11.9 ; Muscle spas m M62.838 and Lumbar radiculopathy, chronic M54.16 [facility] [address] [id number] [address] [place] [address] Apr, [facility] [address] [id number] [address] [place] [address] Apr, [facility] [address] [id number] [address] [place] [address] Mar, Back pain M54.9 and Anxiety F41.9 [facility] [address] [id number] [address] [place] [address] Mar, [facility] [address] [id number] [address] [place] [address] Mar, [facility] [address] [id number] [address] [place] [phone] Mar, [facility] [address] [id number] [address] [place] [address] Mar, Encounter for immunization Z 23 [facility] [address] [id number] [address] [place] [phone] 31 Feb, 2018 Back pain M54.9 and Anxiety F41.9 [facility] [address] [id number] [address] [place] [address] 04 Feb, 2018 Back pain M54.9 and Anxiety F41.9 [facility] [address] [id number] [address] [place] [address] Jan, Back pain M54.9 and Anxiety F41.9 [facility] [address] [id number] [address] [place] [address] Jan, [facility] [address] [id number] [address] [place] [address] Dec, [facility] [address] [id number] [address] [place] [address] Dec, Back pain M54.9 and Anxiety F41.9 [facility] [address] [id number] [address] [place] [address] Dec, Diabetes E11.9 ; Type 2 diab etes mellitus with diabetic peripheral angiopathy without gangrene E11.51 ; Lumbar radiculopathy, chronic M54.16 ; COPD (chronic obstructive pulmonary disease) J44.9 and Anxiety F41.9 [facility] [address] [id number] [address] [place] [phone] Dec, Back pain M54.9 and Anxiety F41.9 [place] [address] [id number] [address] [place] [address] Nov, Back pain M54.9 and Anxiety F41.9 [place] [address] [facility] [id number] [address] [place] [address] Oct, [facility] [address] [id number] [address] [place] [address] Oct, Back pain M54.9 and Anxiety F41.9 [place] [address] [id number] [address] [place] [phone] September, Anxiety F41.9 and Back pain M54.9 [place] [address] [facility] [id number] [address] [place] [address] September, Diabetes E11.9 ; Hypertensio n I10 ; COPD (chronic obstructive pulmonary disease) J44.9 and Lumbar radiculopathy, chronic M54.16 [facility] [address] [facility] [id number] [address] [place] [address] September, Anxiety F41.9 [facility] [address] [facility] [id number] [address] [place] [address] Aug, [facility] [address] [facility] [id number] [address] [place] [address] Aug, [facility] [address] [id number] [address] [place] [address] Aug, Anxiety F41.9 and Back pain M54.9 [place] [address] [id number] [address] [place] [address] Aug, Medicare annual wellness vis it, initial Z00.00 ; COPD (chronic obstructive pulmonary disease) J44.9 ; PAD (peripheral artery disease) I73.9 ; Insulin long-term use Z79.4 ; Hypertension I10 ; Anxiety F41.9 ; Recurrent major depressive disorder, in full remission F33.42 ; Pressure ulcer of other site, stage 3 L89.893 ; Type 2 diabetes mellitus with diabetic peripheral angiopathy without gangrene E11.51 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 [place] [address] [id number] [address] [place] [address] Jul, Back pain M54.9 [place] [address] [id number] [address] [place] [address] Jul, [place] [address] [id number] [address] [place] [address] Jul, Anxiety F41.9 and Back pain M54.9 [place] [address] [id number] [address] [place] [address] Jul, Diabetes E11.9 [place] [address] [id number] [address] [place] [address] May, [place] [address] [id number] [address] [place] [address] May, Diabetes E11.9 ; Anxiety F41 .9 ; Back pain M54.9 and COPD (chronic obstructive pulmonary disease) J44.9 [facility] [address] [id number] [address] [place] [address] May, Back pain M54.9 [facility] [address] [id number] [address] [place] [address] May, [facility] [address] [id number] [address] [place] [address] Apr, Back pain M54.9 [facility] [address] [id number] [address] [place] [address] Mar, Back pain M54.9 [facility] [address] [id number] [address] [place] [phone] Mar, [facility] [address] [id number] [address] [place] [address] Mar, [facility] [address] [id number] [address] [place] [phone] 14 Mar, 2017 Radiculopathy of lumbar rhiannon on M54.16 [facility] [address] [id number] [address] [place] [phone] 13 Mar, 2017 [facility] [address] [id number] [address] [place] [phone] 07 Mar, 2017 Encounter for immunization Z 23 and Lumbar radiculopathy, chronic M54.16 [facility] [address] [id number] [address] [place] [address] Mar, Back pain M54.9 and Anxiety F41.9 [facility] [address] [id number] [address] [place] [phone] 10 Feb, 2017 Acute bilateral low back boy n with left-sided sciatica M54.42 and Acute bilateral low back pain with right-sided sciatica M54.41 [facility] [address] [id number] [address] [place] [address] Feb, [facility] [address] [id number] [address] [place] [address] Feb, Back pain M54.9 [facility] [address] [id number] [address] [place] [address] 05 Jan, 2017 Back pain M54.9 and Anxiety F41.9 [facility] [address] [id number] [address] [place] [phone] 05 Jan, 2017 Diabetes E11.9 [facility] [address] [id number] [address] [place] [address] Dec, Diabetes E11.9 ; Back pain M 54.9 ; Anxiety F41.9 and Insulin long- term use Z79.4 [facility] [address] [id number] [address] [place] [address] Dec, Anxiety F41.9 [facility] [address] [id number] [address] [place] [address] Dec, Back pain M54.9 [facility] [address] [id number] [address] [place] [address] Nov, Back pain M54.9 [facility] [address] [id number] [address] [place] [address] Oct, Back pain M54.9 and Anxiety F41.9 [facility] [address] [id number] [address] [place] [address] September, Back pain M54.9 [facility] [address] [id number] [address] [place] [address] September, Back pain M54.9 and Anxiety F41.9 [facility] [address] [id number] [address] [place] [address] Aug, Diabetes E11.9 ; Anxiety F41 .9 ; Back pain M54.9 and PAD (peripheral artery disease) I73.9 [facility] [address] [id number] [address] [place] [address] Aug, Anxiety F41.9 [facility] [address] [id number] [address] [place] [address] Aug, Back pain M54.9 [facility] [address] [id number] [address] [place] [address] Jul, Back pain M54.9 [facility] [address] [id number] [address] [place] [address] Jul, Back pain M54.9 [facility] [address] [id number] [address] [place] [address] 23 Jul, 2016 Back pain M54.9 [facility] [address] [id number] [address] [place] [address] 16 Jul, 2016 Dorsalgia M54.9 [facility] [address] [id number] [address] [place] [address] 14 Jul, 2016 [facility] [address] [id number] [address] [place] [address] May, Back pain M54.9 [facility] [address] [facility] [id number] [address] [place] [address] May, Diabetes E11.9 ; Anxiety F41 .9 ; Port catheter in place Z95.828 ; Encounter for immunization Z23 and Insulin long-term use Z79.4 [facility] [address] [id number] [address] [place] [address] Apr, Back pain M54.9 [facility] [address] [id number] [address] [place] [address] Apr, Back pain M54.9 [facility] [address] [id number] [address] [place] [address] Apr, [facility] [address] [id number] [address] [place] [phone] Apr, Back pain M54.9 [facility] [address] [id number] [address] [place] [address] Mar, COPD (chronic obstructive pu lmonary disease) J44.9 [facility] [address] [id number] [address] [place] [phone] Feb, [facility] [address] [facility] [id number] [address] [place] [phone] 30 Jan, 2016 [facility] [address] [id number] [address] [place] [address] 20 Jan, 2016 [facility] [address] [id number] [address] [place] [phone] 07 Jan, 2016 [facility] [address] [id number] [address] [place] [address] Jan, [facility] [address] [id number] [address] [place] [address] Dec, Diabetes E11.9 ; Hypoxia R09 .02 and Back pain M54.9 [facility] [address] [id number] [address] [place] [address] Dec, [facility] [address] [id number] [address] [place] [address] Nov, [facility] [address] [id number] [address] [place] [address] Oct, Anxiety F41.9 [facility] [address] [id number] [address] [place] [address] Oct, Back pain M54.9 [facility] [address] [id number] [address] [place] [address] September, Back pain M54.9 [facility] [address] [id number] [address] [place] [address] September, Diabetes E11.9 [facility] [address] [id number] [address] [place] [address] September, [facility] [address] [id number] [address] [place] [address] September, Diabetes E11.9 ; Insulin sarai g-term use Z79.4 and Back pain M54.9 [facility] [address] [id number] [address] [place] [address] Aug, Back pain M54.9 [facility] [address] [phone] Aug, Back pain M54.9 ; Anxiety F4 1.9 and Arthropathy, unspecified M12.9 [facility] [address] [phone] Jul, Back pain M54.9 [facility] [address] [address] Jul, Anxiety F41.9 [facility] [address] [address] Jul, Back pain M54.9 [place] [address] [address] Jul, [place] [address] [phone] Jul, [place] [address] [address] May, Back pain M54.9 ; Diabetes E 11.9 ; Insulin long-term use Z79.4 ; COPD (chronic obstructive pulmonary disease) J44.9 and Hypertension I10 [place] [address] [address] May, Chronic pain G89.29 [place] [address] [phone] Apr, [place] [address] [address] Apr, [place] [address] [phone] Mar, [place] [address] [address] Mar, Encounter for immunization Z 23 and Diabetes E11.9 [place] [address] [phone] Feb, [facility] [address] [id number] [address] [place] [address], [place] [address] Feb, [facility] [address] [id number] [address] [place] [address], [place] [address] Jan, [facility] [address] [id number] [address] [place] [address], [place] [address] Jan, [facility] [address] [id number] [address] [place] [address], [place] [address] Dec, [facility] [address] [id number] [address] [place] [address], [place] [address] Dec, [facility] [address] [id number] [address] [place] [address], [place] [address] Dec, Unspecified arthropathy, sit e unspecified 716.90 and Diabetes mellitus type 2, uncontrolled 250.02 [facility] [address] [id number] [address] [place] [address], [place] [address] Dec, [facility] [address] [id number] [address] [place] [id number] Nov, [facility] [address] [id number] [address] [place] [id number] Oct, [facility] [address] [id number] [address] [place] [phone] September, [facility] [address] [id number] [address] [place] [phone] September, [facility] [address] [id number] [address] [place] [phone] September, [facility] [address] [id number] [address] [place] [phone] September, [facility] [address] [id number] [address] [place] [phone] 14 Aug, 2014 [facility] [address] [id number] [address] [place] [id number] 13 Aug, 2014 [facility] [address] [id number] [facility] [place] [place] [address] 18 Jul, 2014 [facility] [address] [id number] [address] [place] [address], [place] [address] 18 Jul, 2014 [facility] [address] [id number] [facility] [place] [place] [address] 16 Jul, 2014 [facility] [address] [id number] [address] [place] [address], [place] [address] 16 Jul, 2014 [facility] [address] [id number] [address] [place] [address], [place] [address] 16 Jul, 2014 [facility] [address] [id number] [address] [place] [address], [place] [address] 16 Jul, 2014 [facility] [address] [id number] [address] [place] [address], [place] [address] 16 Jul, 2014 [facility] [address] [id number] [address] [place] [address], [place] [address] 16 Jul, 2014 [facility] [address] [id number] [address] [place] [address], [place] [address] 16 Jul, 2014 [facility] [address] [id number] [address] [place] [address], [place] [address] 13 Jul, 2014 [facility] [address] [id number] [address] [place] [address], [place] [address] 13 Jul, 2014 [facility] [place] [facility] [address] [id number] [address] [place] [address], [place] [address] 09 Jul, 2014 [facility] [place] [facility] [address] [id number] [address] [place] [address], [place] [address] 09 Jul, 2014 [facility] [place] [facility] [address] [id number] [address] [place] [address], [place] [address] 17 Jul, 2014 [facility] [place] [facility] [address] [id number] [address] [place] [address], [place] [address] 17 Jul, 2014 [facility] [place] [facility] [address] [id number] [address] [address] 16 Jul, 2014 [facility] [place] [facility] [address] [id number] [address] [place] [address], [place] [address] 16 Jul, 2014 [facility] [place] [facility] [address] [id number] [address] [place] [address], [place] [address] 16 Jul, 2014 [facility] [place] [facility] [address] [id number] [address] [place] [address], [place] [address] 16 Jul, 2014 [facility] [place] [facility] [address] [id number] [address] [place] [address], [place] [address] 16 Jul, 2014 [facility] [place] [facility] [address] [id number] [address] [place] [address], [place] [address] 16 Jul, 2014 [facility] [place] [facility] [address] [id number] [address] [place] [address], [place] [address] 16 Jul, 2014 [facility] [place] [facility] [address] [id number] [address] [place] [address], [place] [address] 16 Jul, 2014 [facility] [place] [facility] [address] [id number] [address] [place] [address], [place] [address] 16 Jul, 2014 [facility] [place] [facility] [address] [id number] [address] [place] [address], [place] [address] 16 Jul, 2014 [facility] [place] [facility] [address] [id number] [address] [place] [address] 16 Jul, 2014 [facility] [place] [facility] [address] [id number] [address] [place] [address] Jul, 2014 [facility] [place] [facility] [address] [id number] [address] [place] [address], [place] [address] 16 Jul, 2014 [facility] [place] [facility] [address] [id number] [address] [place] [address] 16 Jul, 2014 [facility] [place] [facility] [address] [id number] [address] [place] [address] May, [facility] [place] [facility] [address] [id number] [address] [place] [address] May, [facility] [address] [id number] [address] [place] [address], [place] [address] May, [facility] [address] [id number] [address] [place] [address], [place] [address] May, [facility] [address] [id number] [address] [place] [address], [place] [address] May, [facility] [address] [id number] [address] [place] [address], [place] [address] May, [facility] [address] [id number] [address] [place] [address], [place] [address] May, [facility] [address] [id number] [address] [place] [address], [place] [address] May, [facility] [address] [id number] [address] [place] [address], [place] [address] May, [facility] [address] [id number] [address] [place] [address], [place] [address] May, [facility] [address] [id number] [address] [place] [address], [place] [address] Apr, [facility] [address] [id number] [address] [place] [address], [place] [address] Apr, [facility] [address] [id number] [address] [place] [address], [place] [address] Apr, [facility] [address] [id number] [address] [place] [address], [place] [address] Apr, [facility] [address] [id number] [address] [place] [address], [place] [address] Apr, [facility] [address] [id number] [address] [place] [address], [place] [address] Apr, [facility] [address] [id number] [address] [place] [address], [place] [address] Mar, [facility] [place] [facility] [address] [id number] [address] [place] [address], [place] [address] Mar, [facility] [place] [facility] [address] [id number] [address] [place] [address], [place] [address] Mar, [facility] [place] [facility] [address] [id number] [address] [place] [address], [place] [address] Mar, [facility] [place] [facility] [address] [id number] [address] [place] [address], [place] [address] Mar, [facility] [place] [facility] [address] [id number] [address] [place] [address], [place] [address] Mar, [facility] [place] [facility] [address] [id number] [address] [place] [address], [place] [address] Mar, [facility] [place] [facility] [address] [id number] [address] [place] [address], [place] [address] Mar, [facility] [place] [facility] [address] [id number] [address] [place] [address], [place] [address] Mar, [facility] [place] [facility] [address] [id number] [address] [place] [address], [place] [address] Mar, [facility] [place] [facility] [address] [id number] [address] [place] [address], [place] [address] Mar, [facility] [place] [facility] [address] [id number] [address] [place] [address], [place] [address] Feb, [facility] [place] [facility] [address] [id number] [address] [place] [address], [place] [address] 30 Feb, 2014 [facility] [place] [facility] [address] [id number] [address] [place] [address], [place] [address] 15 Feb, 2014 [facility] [place] [facility] [address] [id number] [address] [place] [address], [place] [address] 15 Feb, 2014 [facility] [place] [facility] [address] [id number] [address] [place] [address], [place] [address] Feb, [facility] [place] [facility] [address] [id number] [address] [place] [address], [place] [address] Feb, [facility] [place] [facility] [address] [id number] [address] [place] [address], [place] [address] Feb, [facility] [place] [facility] [address] [id number] [address] [place] [address], [place] [address] Feb, [facility] [place] [facility] [address] [id number] [address] [place] [address], [place] [address] Feb, [facility] [place] [facility] [address] [id number] [address] [place] [address], [place] [address] Feb, [facility] [place] [facility] [address] [id number] [address] [place] [address], [place] [address] Jan, [facility] [place] [facility] [address] [id number] [address] [place] [address], [place] [address] Jan, [facility] [place] [facility] [address] [id number] [address] [place] [address], [place] [address] 16 Jan, 2014 [facility] [place] [facility] [address] [id number] [address] [place] [address], [place] [address] 16 Jan, 2014 [facility] [place] [facility] [address] [id number] [address] [place] [address], [place] [address] Jan, [facility] [place] [facility] [address] [id number] [address] [place] [address], [place] [address] Jan, [facility] [place] [facility] [address] [id number] [address] [place] [address], [place] [address] Jan, [facility] [place] [facility] [address] [id number] [address] [place] [address], [place] [address] Dec, [facility] [place] [facility] [address] [id number] [address] [place] [address], [place] [address] Dec, [facility] [place] [facility] [address] [id number] [address] [place] [address], [place] [address] Dec, [facility] [place] [facility] [address] [id number] [address] [place] [address], [place] [address] Dec, [facility] [place] [facility] [address] [id number] [address] [place] [address], [place] [address] Dec, [facility] [address] [id number] [address] [place] [address], [place] [address] Dec, [facility] [address] [id number] [address] [place] [address], [place] [address] Dec, [facility] [address] [id number] [address] [place] [address], [place] [address] Dec, [facility] [address] [id number] [address] [place] [address], [place] [address] Oct, [facility] [address] [id number] [address] [place] [address], [place] [address] Oct, [facility] [address] [id number] [address] [place] [address], [place] [address] September, [facility] [address] [id number] [address] [place] [address], [place] [address] September, [facility] [address] [id number] [address] [place] [address], [place] [address] September, [facility] [address] [id number] [address] [place] [address], [place] [address] September, [facility] [address] [id number] [address] [place] [address], [place] [address] September, [facility] [address] [id number] [address] [place] [address], [place] [address] September, [facility] [address] [id number] [address] [place] [address], [place] [address] September, [facility] [address] [id number] [address] [place] [address], [place] [address] Aug, [facility] [address] [id number] [address] [place] [address], [place] [address] Aug, [facility] [address] [id number] [address] [place] [address], [place] [address] Jul, [facility] [address] [id number] [address] [place] [address], [place] [address] 24 Jul, 2013 [facility] [address] [id number] [address] [place] [address], [place] [address] Jul, [facility] [address] [id number] [address] [place] [address], [place] [address] Jul, [facility] [address] [id number] [address] [place] [address], [place] [address] 14 Jul, 2013 [facility] [address] [id number] [address] [place] [address], [place] [address] Jul, [facility] [address] [id number] [address] [place] [address], [place] [address] Jul, [facility] [address] [id number] [address] [place] [address], [place] [address] Jul, [facility] [address] [id number] [address] [place] [address], [place] [address] 15 May, 2013 [facility] [address] [id number] [address] [place] [address], [place] [address] 15 May, 2013 [facility] [address] [id number] [address] [place] [address], [place] [address] May, [facility] [address] [id number] [address] [place] [address], [place] [address] May, [facility] [address] [id number] [address] [place] [address], [place] [address] Apr, [facility] [place] [facility] [address] [id number] [address] [place] [address], [place] [address] Mar, [facility] [place] [facility] [address] [id number] [address] [place] [address], [place] [address] Mar, [facility] [place] [facility] [address] [id number] [address] [place] [address], [place] [address] Mar, [facility] [address] [id number] [address] [place] [address], [place] [address] Mar, [facility] [address] [id number] [address] [place] [address], [place] [address] Mar, [facility] [address] [id number] [address] [place] [address], [place] [address] Mar, [facility] [address] [id number] [address] [place] [address], [place] [address] Mar, [facility] [address] [id number] [address] [place] [address], [place] [address] Mar, [facility] [address] [id number] [address] [place] [address], [place] [address] Mar, [facility] [address] [id number] [address] [place] [address], [place] [address] Mar, [facility] [address] [id number] [address] [place] [address], [place] [address] Mar, [facility] [address] [id number] [address] [place] [address], [place] [address] Mar, [facility] [address] [id number] [address] [place] [address], [place] [address] Feb, [facility] [address] [id number] [address] [place] [address], [place] [address] Feb, [facility] [address] [id number] [address] [place] [address], [place] [address] Feb, [facility] [address] [id number] [address] [place] [address] Feb, [facility] [address] [id number] [address] [place] [address], [place] [address] Feb, [facility] [address] [id number] [address] [place] [address], [place] [address] Jan, [facility] [address] [id number] [address] [place] [address] Dec, [facility] [place] [facility] [address] [id number] [address] [place] [address], [place] [address] Dec, [facility] [address] [id number] [address] [place] [address], [place] [address] Dec, [facility] [address] [id number] [address] [place] [address], [place] [address] Nov, [facility] [address] [id number] [address] [place] [address], [place] [address] Nov, [facility] [address] [id number] [address] [place] [address], [place] [address] Nov, [facility] [address] [id number] [address] [place] [address], [place] [address] Oct, [facility] [address] [id number] [address] [place] [address], [place] [address] Oct, [facility] [address] [id number] [address] [place] [address], [place] [address] Oct, [facility] [address] [id number] [address] [place] [address], [place] [address] September, [facility] [address] [id number] [address] [place] [address], [place] [address] September, [facility] [address] [id number] [address] [place] [address], [place] [address] September, [facility] [address] [id number] [address] [place] [address], [place] [address] September, [facility] [address] [id number] [address] [place] [address], [place] [address] September, [facility] [address] [id number] [address] [place] [address], [place] [address] Aug, [facility] [address] [id number] [address] [place] [address], [place] [address] Aug, [facility] [address] [id number] [address] [place] [address], [place] [address] Aug, [facility] [address] [id number] [address] [place] [address], [place] [address] Jul, [facility] [address] [id number] [address] [place] [address], [place] [address] Jul, [facility] [address] [id number] [address] [place] [address], [place] [address] Jul, [facility] [address] [id number] [address] [place] [address], [place] [address] Jul, [facility] [address] [id number] [address] [place] [address], [place] [address] Jul, [facility] [address] [id number] [address] [place] [address], [place] [address] Jul, [facility] [address] [id number] [address] [place] [address], [place] [address] Jul, [facility] [address] [id number] [address] [place] [address], [place] [address] May, [facility] [address] [id number] [address] [place] [address], [place] [address] May, [facility] [address] [id number] [address] [place] [address], [place] [address] May, [facility] [address] [id number] [address] [place] [address], [place] [address] Apr, [facility] [address] [id number] [address] [place] [address], [place] [address] Apr, [facility] [address] [id number] [address] [place] [address], [place] [address] Apr, [facility] [address] [id number] [address] [place] [address], [place] [address] Apr, [facility] [address] [id number] [address] [place] [address], [place] [address] Apr, [facility] [address] [id number] [address] [place] [address], [place] [address] Mar, [facility] [address] [id number] [address] [place] [address], [place] [address] Mar, [facility] [address] [id number] [address] [place] [address], [place] [address] Mar, [facility] [address] [id number] [address] [place] [address], [place] [address] Mar, [facility] [address] [id number] [address] [place] [address], [place] [address] Feb, [facility] [address] [id number] [address] [place] [address], [place] [address] Feb, [facility] [address] [id number] [address] [place] [address], [place] [address] Feb, [facility] [address] [id number] [address] [place] [address], [place] [address] Feb, [facility] [address] [id number] [address] [place] [address], [place] [address] Feb, [facility] [address] [id number] [address] [place] [address], [place] [address] Jan, [facility] [address] [id number] [address] [place] [address], [place] [address] Dec, [facility] [address] [id number] [address] [place] [address], [place] [address] Dec, [facility] [address] [id number] [address] [place] [address], [place] [address] Dec, [facility] [address] [id number] [address] [place] [address], [place] [address] Nov, [facility] [address] [id number] [address] [place] [address], [place] [address] Nov, [facility] [address] [id number] [address] [place] [address], [place] [address] Nov, [facility] [address] [id number] [address] [place] [address], [place] [address] Oct, [facility] [address] [id number] [address] [place] [address], [place] [address] Oct, [facility] [address] [id number] [address] [place] [address], [place] [address] Oct, [facility] [address] [id number] [address] [place] [address], [place] [address] Oct, [facility] [address] [id number] [address] [place] [address], [place] [address] September, [facility] [address] [id number] [address] [place] [address], [place] [address] September, [facility] [address] [id number] [address] [place] [address], [place] [address] Aug, [facility] [address] [id number] [address] [place] [address], [place] [address] Aug, [facility] [address] [id number] [address] [place] [address], [place] [address] Aug, [facility] [address] [id number] [address] [place] [address], [place] [address] Aug, [facility] [address] [id number] [address] [place] [address], [place] [address] Aug, [facility] [address] [id number] [address] [place] [address], [place] [address] Aug, [facility] [address] [id number] [address] [place] [address], [place] [address] Aug, [facility] [address] [id number] [address] [place] [address], [place] [address] Jul, [facility] [address] [id number] [address] [place] [address], [place] [address] Jul, [facility] [address] [id number] [address] [place] [phone] 14 Jul, 2011 [facility] [address] [id number] [address] [place] [id number] May, [facility] [address] [id number] [address] [place] [phone] May, [facility] [address] [id number] [address] [place] [phone] May, [facility] [address] [id number] [address] [place] [phone] Apr, [facility] [address] [id number] [address] [place] [id number] Apr, [facility] [address] [id number] [address] [place] [id number] Mar, [facility] [address] [id number] [address] [place] [id number] Mar, [facility] [address] [id number] [address] [place] [phone] Mar, [facility] [address] [id number] [address] [place] [phone] Mar, [facility] [address] [id number] [address] [place] [phone] Mar, [facility] [address] [id number] [address] [place] [id number] Mar, [facility] [address] [id number] [address] [place] [id number] Feb, [facility] [address] [id number] [address] [place] [id number] Feb, [facility] [address] [id number] [address] [place] [phone] Feb, IMMUNIZATIONS No Known Immunizations SOCIAL HISTORY Never Assessed REASON FOR VISIT Lab (walk-in) PLAN OF CARE VITAL SIGNS MEDICATIONS Unknown Medications RESULTS Name Result Date Reference Range A1C (IN HOUSE) 2018-08-22 A1C IN HOUSE 7.7 4.3 - 5.6 % Previous A1c 6.4 Lot [id number] Exp date Feb 2020 PROCEDURES Procedure Date Ordered Result Body Site GLYCATED HEMOGLOBIN TEST August 22, 2018 INSTRUCTIONS MEDICATIONS ADMINISTERED No Known Medications [...] foot infections x 3 2016 Hospitalization History [facility] - right big t oe removed 2018
--- OUTSIDE RECORDS SUMMARY | 2020-01-03 07:40 | XMS REPORT ---
Author Author Tra SILVERIO Organization [facility] Address [address] [place] [address] Care Team Providers Care Senior Network Engineer Name Role Phone FERNY SILVERIO Unavailable PROBLEMS Type Condition ICD9-CM Code [id number] Code Onset Dates Condition S tatus SNOMED Code Problem Insulin long-term use Z79.4 Active 888921433 Problem Hypertension I10 Active 1944231 3 Problem Diabetes E11.9 Active 24632959 Problem Hypoxia R09.02 Active 163409640 Problem Anxiety F41.9 Active 15443470 Problem Port catheter in place Z95.828 Active 078240952 Problem Pressure ulcer of other site, stage 3 L89.893 Active 195621786 Problem COPD (chronic obstructive pulmonary disease) J44.9 Active 70553334 Problem Type 2 diabetes mellitus wit h diabetic peripheral angiopathy without gangrene E11.51 Active 387761702 Problem Back pain M54.9 Active 483670486 Problem PAD (peripheral artery disease) I73.9 Active 226512474 Problem Lumbar radiculopathy, chronic M54.16 Active 685553681 Problem Recurrent major depressive disorder, in full remission F33.42 Active 050951061 Problem shelter current use of insulin Z79.4 Active [id number] ALLERGIES No Information ENCOUNTERS Encounter Location Date Diagnosis [facility] [address] [facility] [id number] [address] [place] [phone] Feb, [facility] [address] [facility] [id number] [address] [place] [phone] Jan, [facility] [address] [facility] [id number] [address] [place] [id number] Jan, [facility] [address] [facility] [id number] [address] [place] [phone] Jan, Back pain M54.9 [facility] [address] [id number] [address] [place] [phone] Jan, [facility] [address] [id number] [address] [place] [id number] Dec, Acute non-recurrent frontal sinusitis J01.10 [facility] [address] [id number] [address] [place] [phone] Dec, Acute non-recurrent frontal sinusitis J01.10 [facility] [address] [id number] [address] [place] [phone] Dec, Type 2 diabetes mellitus wit h diabetic peripheral angiopathy without gangrene E11.51 ; Lumbar radiculopathy, chronic M54.16 ; Recurrent major depressive disorder, in full remission F33.42 and Anxiety F41.9 [facility] [address] [id number] [address] [place] [phone] Dec, [facility] [address] [id number] [address] [place] [phone] Nov, Anxiety F41.9 [facility] [address] [id number] [address] [place] [phone] Nov, [facility] [address] [id number] [address] [place] [phone] Nov, Back pain M54.9 [facility] [address] [id number] [address] [place] [phone] Nov, [facility] [address] [id number] [address] [place] [phone] Nov, Back pain M54.9 [facility] [address] [id number] [address] [place] [phone] Nov, Anxiety F41.9 [facility] [address] [id number] [address] [place] [phone] Nov, [facility] [address] [id number] [address] [place] [phone] Oct, Back pain M54.9 [facility] [address] [id number] [address] [place] [phone] 07 Oct, 2018 [facility] [address] [id number] [address] [place] [phone] Oct, [facility] [address] [id number] [address] [place] [phone] Oct, [facility] [address] [id number] [address] [place] [phone] September, Back pain M54.9 [facility] [address] [id number] [address] [place] [phone] September, [facility] [address] [id number] [address] [place] [phone] September, [facility] [address] [id number] [address] [place] [phone] September, [facility] [address] [id number] [address] [place] [phone] Aug, Back pain M54.9 [facility] [address] [id number] [address] [place] [phone] Aug, Anxiety F41.9 [facility] [address] [id number] [address] [place] [phone] Aug, [facility] [address] [id number] [address] [place] [phone] Aug, Pressure ulcer of other site , stage 3 L89.893 and COPD (chronic obstructive pulmonary disease) J44.9 [facility] [address] [id number] [address] [place] [phone] Aug, History of smoking Z87.891 [facility] [address] [id number] [address] [place] [phone] Jul, Type 2 diabetes mellitus wit h diabetic peripheral angiopathy without gangrene E11.51 [facility] [address] [id number] [address] [place] [phone] Jul, Back pain M54.9 [facility] [address] [id number] [address] [place] [phone] Jul, Anxiety F41.9 [facility] [address] [id number] [address] [place] [phone] Jul, [facility] [address] [id number] [address] [place] [phone] Jul, Back pain M54.9 [facility] [address] [id number] [address] [place] [phone] Jul, Back pain M54.9 [facility] [address] [id number] [address] [place] [phone] Jul, Lumbar radiculopathy, chroni c M54.16 ; Hypertension I10 and Type 2 diabetes mellitus with diabetic peripheral angiopathy without gangrene E11.51 [facility] [address] [id number] [address] [place] [phone] Jul, Back pain M54.9 [facility] [address] [id number] [address] [place] [phone] Jul, Back pain M54.9 and Anxiety F41.9 [facility] [place] [address] [id number] [address] [place] [phone] Jul, [facility] [address] [facility] [id number] [address] [place] [phone] May, Back pain M54.9 and Anxiety F41.9 [facility] [address] [id number] [address] [place] [phone] May, [facility] [address] [facility] [id number] [address] [place] [phone] Apr, Radiculopathy of lumbar rhiannon on M54.16 ; Back pain M54.9 and Anxiety F41.9 [facility] [address] [id number] [address] [place] [id number] Apr, Diabetes E11.9 ; Muscle spas m M62.838 and Lumbar radiculopathy, chronic M54.16 [facility] [address] [id number] [address] [place] [phone] Apr, [facility] [address] [id number] [address] [place] [phone] Apr, [facility] [address] [id number] [address] [place] [phone] Mar, Back pain M54.9 and Anxiety F41.9 [facility] [address] [id number] [address] [place] [phone] Mar, [facility] [address] [id number] [address] [place] [phone] Mar, [facility] [address] [id number] [address] [place] [phone] Mar, [facility] [address] [id number] [address] [place] [phone] Mar, Encounter for immunization Z 23 [facility] [address] [id number] [address] [place] [phone] 31 Feb, 2018 Back pain M54.9 and Anxiety F41.9 [facility] [address] [id number] [address] [place] [id number] 04 Feb, 2018 Back pain M54.9 and Anxiety F41.9 [facility] [address] [id number] [address] [place] [phone] Jan, Back pain M54.9 and Anxiety F41.9 [facility] [address] [id number] [address] [place] [phone] Jan, [facility] [address] [id number] [address] [place] [phone] Dec, [facility] [address] [id number] [address] [place] [phone] Dec, Back pain M54.9 and Anxiety F41.9 [facility] [address] [id number] [address] [place] [phone] Dec, Diabetes E11.9 ; Type 2 diab etes mellitus with diabetic peripheral angiopathy without gangrene E11.51 ; Lumbar radiculopathy, chronic M54.16 ; COPD (chronic obstructive pulmonary disease) J44.9 and Anxiety F41.9 [facility] [address] [id number] [address] [place] [id number] Dec, Back pain M54.9 and Anxiety F41.9 [place] [address] [id number] [address] [place] [phone] Nov, Back pain M54.9 and Anxiety F41.9 [place] [address] [facility] [id number] [address] [place] [phone] Oct, [facility] [address] [id number] [address] [place] [phone] Oct, Back pain M54.9 and Anxiety F41.9 [place] [address] [id number] [address] [place] [phone] September, Anxiety F41.9 and Back pain M54.9 [place] [address] [facility] [id number] [address] [place] [phone] September, Diabetes E11.9 ; Hypertensio n I10 ; COPD (chronic obstructive pulmonary disease) J44.9 and Lumbar radiculopathy, chronic M54.16 [facility] [address] [facility] [id number] [address] [place] [phone] September, Anxiety F41.9 [facility] [address] [facility] [id number] [address] [place] [phone] Aug, [facility] [address] [facility] [id number] [address] [place] [phone] Aug, [facility] [address] [id number] [address] [place] [phone] Aug, Anxiety F41.9 and Back pain M54.9 [facility] [address] [id number] [address] [place] [phone] Aug, Medicare annual wellness vis it, initial Z00.00 ; COPD (chronic obstructive pulmonary disease) J44.9 ; PAD (peripheral artery disease) I73.9 ; Insulin long-term use Z79.4 ; Hypertension I10 ; Anxiety F41.9 ; Recurrent major depressive disorder, in full remission F33.42 ; Pressure ulcer of other site, stage 3 L89.893 ; Type 2 diabetes mellitus with diabetic peripheral angiopathy without gangrene E11.51 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 [facility] [address] [id number] [address] [place] [phone] Jul, Back pain M54.9 [place] [address] [id number] [address] [place] [phone] Jul, [facility] [address] [id number] [address] [place] [phone] Jul, Anxiety F41.9 and Back pain M54.9 [facility] [place] [address] [id number] [address] [place] [phone] Jul, Diabetes E11.9 [facility] [place] [address] [id number] [address] [place] [phone] May, [facility] [place] [address] [id number] [address] [place] [phone] May, Diabetes E11.9 ; Anxiety F41 .9 ; Back pain M54.9 and COPD (chronic obstructive pulmonary disease) J44.9 [facility] [address] [id number] [address] [place] [phone] May, Back pain M54.9 [facility] [address] [id number] [address] [place] [phone] May, [facility] [address] [id number] [address] [place] [phone] Apr, Back pain M54.9 [facility] [address] [id number] [address] [place] [phone] Mar, Back pain M54.9 [facility] [address] [id number] [address] [place] [phone] Mar, [facility] [address] [id number] [address] [place] [phone] Mar, [facility] [address] [id number] [address] [place] [phone] 14 Mar, 2017 Radiculopathy of lumbar rhiannon on M54.16 [facility] [address] [id number] [address] [place] [phone] 13 Mar, 2017 [facility] [address] [id number] [address] [place] [phone] 07 Mar, 2017 Encounter for immunization Z 23 and Lumbar radiculopathy, chronic M54.16 [facility] [address] [id number] [address] [place] [phone] Mar, Back pain M54.9 and Anxiety F41.9 [facility] [address] [id number] [address] [place] [phone] 10 Feb, 2017 Acute bilateral low back boy n with left-sided sciatica M54.42 and Acute bilateral low back pain with right-sided sciatica M54.41 [facility] [address] [id number] [address] [place] [phone] Feb, [facility] [address] [id number] [address] [place] [id number] Feb, Back pain M54.9 [facility] [address] [id number] [address] [place] [id number] 05 Jan, 2017 Back pain M54.9 and Anxiety F41.9 [facility] [address] [id number] [address] [place] [id number] 05 Jan, 2017 Diabetes E11.9 [facility] [address] [id number] [address] [place] [phone] Dec, Diabetes E11.9 ; Back pain M 54.9 ; Anxiety F41.9 and Insulin long- term use Z79.4 [facility] [address] [id number] [address] [place] [phone] Dec, Anxiety F41.9 [facility] [address] [id number] [address] [place] [phone] Dec, Back pain M54.9 [facility] [address] [id number] [address] [place] [phone] Nov, Back pain M54.9 [facility] [address] [id number] [address] [place] [phone] Oct, Back pain M54.9 and Anxiety F41.9 [facility] [address] [id number] [address] [place] [phone] September, Back pain M54.9 [facility] [address] [id number] [address] [place] [phone] September, Back pain M54.9 and Anxiety F41.9 [facility] [address] [id number] [address] [place] [phone] Aug, Diabetes E11.9 ; Anxiety F41 .9 ; Back pain M54.9 and PAD (peripheral artery disease) I73.9 [facility] [address] [id number] [address] [place] [phone] Aug, Anxiety F41.9 [facility] [address] [id number] [address] [place] [id number] Aug, Back pain M54.9 [facility] [address] [id number] [address] [place] [phone] Jul, Back pain M54.9 [facility] [address] [id number] [address] [place] [phone] Jul, Back pain M54.9 [facility] [address] [id number] [address] [place] [id number] 23 Jul, 2016 Back pain M54.9 [facility] [address] [id number] [address] [place] [id number] 16 Jul, 2016 Dorsalgia M54.9 [facility] [address] [id number] [address] [place] [phone] 14 Jul, 2016 [facility] [address] [id number] [address] [place] [id number] May, Back pain M54.9 [facility] [address] [facility] [id number] [address] [place] [id number] May, Diabetes E11.9 ; Anxiety F41 .9 ; Port catheter in place Z95.828 ; Encounter for immunization Z23 and Insulin long-term use Z79.4 [facility] [address] [id number] [address] [place] [phone] Apr, Back pain M54.9 [facility] [address] [id number] [address] [place] [phone] Apr, Back pain M54.9 [facility] [address] [id number] [address] [place] [phone] Apr, [facility] [address] [id number] [address] [place] [phone] Apr, Back pain M54.9 [facility] [address] [id number] [address] [place] [phone] Mar, COPD (chronic obstructive pu lmonary disease) J44.9 [facility] [address] [id number] [address] [place] [id number] Feb, [facility] [address] [facility] [id number] [address] [place] [phone] 30 Jan, 2016 [facility] [address] [id number] [address] [place] [phone] 20 Jan, 2016 [facility] [address] [id number] [address] [place] [phone] 07 Jan, 2016 [facility] [address] [id number] [address] [place] [phone] Jan, [facility] [address] [id number] [address] [place] [phone] Dec, Diabetes E11.9 ; Hypoxia R09 .02 and Back pain M54.9 [facility] [address] [id number] [address] [place] [phone] Dec, [facility] [address] [id number] [address] [place] [phone] Nov, [facility] [address] [id number] [address] [place] [phone] Oct, Anxiety F41.9 [facility] [address] [id number] [address] [place] [phone] Oct, Back pain M54.9 [facility] [address] [id number] [address] [place] [phone] September, Back pain M54.9 [facility] [address] [id number] [address] [place] [phone] September, Diabetes E11.9 [facility] [address] [id number] [address] [place] [phone] September, [facility] [address] [id number] [address] [place] [phone] September, Diabetes E11.9 ; Insulin sarai g-term use Z79.4 and Back pain M54.9 [facility] [address] [id number] [address] [place] [phone] Aug, Back pain M54.9 [facility] [address] [id number] Aug, Back pain M54.9 ; Anxiety F4 1.9 and Arthropathy, unspecified M12.9 [facility] [address] [id number] Jul, Back pain M54.9 [facility] [address] [id number] Jul, Anxiety F41.9 [facility] [address] [id number] Jul, Back pain M54.9 [place] [address] [id number] Jul, [place] [address] [phone] Jul, [place] [address] [phone] May, Back pain M54.9 ; Diabetes E 11.9 ; Insulin long-term use Z79.4 ; COPD (chronic obstructive pulmonary disease) J44.9 and Hypertension I10 [place] [address] [id number] May, Chronic pain G89.29 [place] [address] [id number] Apr, [place] [address] [id number] Apr, [place] [address] [id number] Mar, [place] [address] [id number] Mar, Encounter for immunization Z 23 and Diabetes E11.9 [place] [address] [phone] Feb, [facility] [address] [id number] [address] [place] [address], [place] [phone] Feb, [facility] [address] [id number] [address] [place] [address], [place] [phone] Jan, [facility] [address] [id number] [address] [place] [address], [place] [phone] Jan, [facility] [address] [id number] [address] [place] [address], [place] [phone] Dec, [facility] [address] [id number] [address] [place] [address], [place] [address] Dec, [facility] [address] [id number] [address] [place] [address], [place] [address] Dec, Unspecified arthropathy, sit e unspecified 716.90 and Diabetes mellitus type 2, uncontrolled 250.02 [facility] [address] [id number] [address] [place] [address], [place] [address] Dec, [facility] [address] [id number] [address] [place] [phone] Nov, [facility] [address] [id number] [address] [place] [phone] Oct, [facility] [address] [id number] [address] [place] [id number] September, [facility] [address] [id number] [address] [place] [phone] September, [facility] [address] [id number] [address] [place] [id number] September, [facility] [address] [id number] [address] [place] [id number] September, [facility] [address] [id number] [address] [place] [id number] 14 Aug, 2014 [facility] [address] [id number] [address] [place] [id number] 13 Aug, 2014 [facility] [address] [id number] [address] [place] [id number] 18 Jul, 2014 [facility] [address] [id number] [address] [place] [address], [place] [id number] 18 Jul, 2014 [facility] [address] [id number] [facility] [place] [id number] 16 Jul, 2014 [facility] [address] [id number] [address] [place] [address], [place] [id number] 16 Jul, 2014 [facility] [address] [id number] [address] [place] [address], [place] [id number] 16 Jul, 2014 [facility] [address] [id number] [address] [place] [address], [place] [id number] 16 Jul, 2014 [facility] [address] [id number] [address] [place] [address], [place] [id number] 16 Jul, 2014 [facility] [address] [id number] [address] [place] [address], [place] [id number] 16 Jul, 2014 [facility] [address] [id number] [address] [place] [address], [place] [id number] 16 Jul, 2014 [facility] [address] [id number] [address] [place] [address], [place] [id number] 13 Jul, 2014 [facility] [address] [id number] [address] [place] [address], [place] [id number] 13 Jul, 2014 [facility] [address] [id number] [address] [place] [address], [place] [id number] 09 Jul, 2014 [facility] [address] [id number] [address] [place] [address], [place] [id number] 09 Jul, 2014 [facility] [address] [id number] [address] [place] [address], [place] [id number] 17 Jul, 2014 [facility] [address] [id number] [address] [place], [place] [address], [place] [address] 17 Jul, 2014 [facility] [place] [facility] [address] [id number] [address] [place] [address] 16 Jul, 2014 [facility] [place] [facility] [address] [id number] [address] [place] [address], [place] [address] 16 Jul, 2014 [facility] [place] [facility] [address] [id number] [address] [place] [address], [place] [address] 16 Jul, 2014 [facility] [place] [facility] [address] [id number] [address] [place] [address], [place] [address] 16 Jul, 2014 [facility] [place] [facility] [address] [id number] [address] [place] [address], [place] [address] 16 Jul, 2014 [facility] [place] [facility] [address] [id number] [address] [place] [address], [place] [address] 16 Jul, 2014 [facility] [place] [facility] [address] [id number] [address] [place] [address], [place] [address] 16 Jul, 2014 [facility] [place] [facility] [address] [id number] [address] [place] [address], [place] [address] 16 Jul, 2014 [facility] [place] [facility] [address] [id number] [address] [place] [address], [place] [address] 16 Jul, 2014 [facility] [place] [facility] [address] [id number] [address] [place] [address], [place] [address] 16 Jul, 2014 [facility] [place] [facility] [address] [id number] [address] [place] [address] 16 Jul, 2014 [facility] [place] [facility] [address] [id number] [address] [place] [address] Jul, 2014 [facility] [place] [facility] [address] [id number] [address] [place] [address], [place] [address] 16 Jul, 2014 [facility] [place] [facility] [address] [id number] [address] [place] [address] 16 Jul, 2014 [facility] [place] [facility] [address] [id number] [address] [place] [phone] May, [facility] [place] [facility] [address] [id number] [address] [place] [address] May, [facility] [address] [id number] [address] [place] [address], [place] [address] May, [facility] [address] [id number] [address] [place] [address], [place] [address] May, [facility] [address] [id number] [address] [place] [address], [place] [address] May, [facility] [address] [id number] [address] [place] [address], [place] [address] May, [facility] [address] [id number] [address] [place] [address], [place] [address] May, [facility] [address] [id number] [address] [place] [address], [place] [address] May, [facility] [address] [id number] [address] [place] [address], [place] [address] May, [facility] [address] [id number] [address] [place] [address], [place] [address] May, [facility] [address] [id number] [address] [place] [address], [place] [address] Apr, [facility] [address] [id number] [address] [place] [address], [place] [address] Apr, [facility] [address] [id number] [address] [place] [address], [place] [address] Apr, [facility] [address] [id number] [address] [place] [address], [place] [address] Apr, [facility] [address] [id number] [address] [place] [address], [place] [address] Apr, [facility] [address] [id number] [address] [place] [address], [place] [address] Apr, [facility] [address] [id number] [address] [place] [address], [place] [address] Mar, [facility] [place] [facility] [address] [id number] [address] [place] [address], [place] [address] Mar, [facility] [place] [facility] [address] [id number] [address] [place] [address], [place] [address] Mar, [facility] [place] [facility] [address] [id number] [address] [place] [address], [place] [address] Mar, [facility] [place] [facility] [address] [id number] [address] [place] [address], [place] [address] Mar, [facility] [place] [facility] [address] [id number] [address] [place] [address], [place] [address] Mar, [facility] [place] [facility] [address] [id number] [address] [place] [address], [place] [address] Mar, [facility] [place] [facility] [address] [id number] [address] [place] [address], [place] [address] Mar, [facility] [place] [facility] [address] [id number] [address] [place] [address], [place] [address] Mar, [facility] [place] [facility] [address] [id number] [address] [place] [address], [place] [address] Mar, [facility] [place] [facility] [address] [id number] [address] [place] [address], [place] [address] Mar, [facility] [place] [facility] [address] [id number] [address] [place] [address], [place] [address] Feb, [facility] [place] [facility] [address] [id number] [address] [place] [address], [place] [address] 30 Feb, 2014 [facility] [place] [facility] [address] [id number] [address] [place] [address], [place] [address] 15 Feb, 2014 [facility] [place] [facility] [address] [id number] [address] [place] [address], [place] [address] 15 Feb, 2014 [facility] [place] [facility] [address] [id number] [address] [place] [address], [place] [address] Feb, [facility] [place] [facility] [address] [id number] [address] [place] [address], [place] [address] Feb, [facility] [place] [facility] [address] [id number] [address] [place] [address], [place] [address] Feb, [facility] [place] [facility] [address] [id number] [address] [place] [address], [place] [address] Feb, [facility] [place] [facility] [address] [id number] [address] [place] [address], [place] [address] Feb, [facility] [place] [facility] [address] [id number] [address] [place] [address], [place] [address] Feb, [facility] [place] [facility] [address] [id number] [address] [place] [address], [place] [address] Jan, [facility] [place] [facility] [address] [id number] [address] [place] [address], [place] [address] Jan, [facility] [place] [facility] [address] [id number] [address] [place] [address], [place] [address] 16 Jan, 2014 [facility] [place] [facility] [address] [id number] [address] [place] [address], [place] [address] 16 Jan, 2014 [facility] [place] [facility] [address] [id number] [address] [place] [address], [place] [address] Jan, [facility] [place] [facility] [address] [id number] [address] [place] [address], [place] [address] Jan, [facility] [place] [facility] [address] [id number] [address] [place] [address], [place] [address] Jan, [facility] [place] [facility] [address] [id number] [address] [place] [address], [place] [address] Dec, [facility] [place] [facility] [address] [id number] [address] [place] [address], [place] [address] Dec, [facility] [place] [facility] [address] [id number] [address] [place] [address], [place] [address] Dec, [facility] [place] [facility] [address] [id number] [address] [place] [address], [place] [address] Dec, [facility] [place] [facility] [address] [id number] [address] [place] [address], [place] [address] Dec, [facility] [address] [id number] [address] [place] [address], [place] [address] Dec, [facility] [address] [id number] [address] [place] [address], [place] [address] Dec, [facility] [address] [id number] [address] [place] [address], [place] [address] Dec, [facility] [address] [id number] [address] [place] [address], [place] [address] Oct, [facility] [address] [id number] [address] [place] [address], [place] [address] Oct, [facility] [address] [id number] [address] [place] [address], [place] [address] September, [facility] [address] [id number] [address] [place] [address], [place] [address] September, [facility] [address] [id number] [address] [place] [address], [place] [address] September, [facility] [address] [id number] [address] [place] [address], [place] [address] September, [facility] [address] [id number] [address] [place] [address], [place] [address] September, [facility] [address] [id number] [address] [place] [address], [place] [address] September, [facility] [address] [id number] [address] [place] [address], [place] [address] September, [facility] [address] [id number] [address] [place] [address], [place] [address] Aug, [facility] [address] [id number] [address] [place] [address], [place] [address] Aug, [facility] [address] [id number] [address] [place] [address], [place] [address] Jul, [facility] [address] [id number] [address] [place] [address], [place] [address] 24 Jul, 2013 [facility] [address] [id number] [address] [place] [address], [place] [address] Jul, [facility] [address] [id number] [address] [place] [address], [place] [address] Jul, [facility] [address] [id number] [address] [place] [address], [place] [address] 14 Jul, 2013 [facility] [address] [id number] [address] [place] [address], [place] [address] Jul, [facility] [address] [id number] [address] [place] [address], [place] [address] Jul, [facility] [address] [id number] [address] [place] [address], [place] [address] Jul, [facility] [address] [id number] [address] [place] [address], [place] [address] 15 May, 2013 [facility] [address] [id number] [address] [place] [address], [place] [address] 15 May, 2013 [facility] [address] [id number] [address] [place] [address], [place] [address] May, [facility] [address] [id number] [address] [place] [address], [place] [address] May, [facility] [address] [id number] [address] [place] [address], [place] [address] Apr, [facility] [place] [facility] [address] [id number] [address] [place] [address], [place] [address] Mar, [facility] [place] [facility] [address] [id number] [address] [place] [address], [place] [address] Mar, [facility] [place] [facility] [address] [id number] [address] [place] [address], [place] [address] Mar, [facility] [address] [id number] [address] [place] [address], [place] [address] Mar, [facility] [address] [id number] [address] [place] [address], [place] [address] Mar, [facility] [address] [id number] [address] [place] [address], [place] [address] Mar, [facility] [address] [id number] [address] [place] [address], [place] [address] Mar, [facility] [address] [id number] [address] [place] [address], [place] [address] Mar, [facility] [address] [id number] [address] [place] [address], [place] [address] Mar, [facility] [address] [id number] [address] [place] [address], [place] [address] Mar, [facility] [address] [id number] [address] [place] [address], [place] [address] Mar, [facility] [address] [id number] [address] [place] [address], [place] [address] Mar, [facility] [address] [id number] [address] [place] [address], [place] [address] Feb, [facility] [address] [id number] [address] [place] [address], [place] [address] Feb, [facility] [address] [id number] [address] [place] [address], [place] [address] Feb, [facility] [address] [id number] [address] [place] [address] Feb, [facility] [address] [id number] [address] [place] [address], [place] [address] Feb, [facility] [address] [id number] [address] [place] [address], [place] [address] Jan, [facility] [address] [id number] [address] [place] [address] Dec, [facility] [place] [facility] [address] [id number] [address] [place] [address], [place] [address] Dec, [facility] [address] [id number] [address] [place] [address], [place] [address] Dec, [facility] [address] [id number] [address] [place] [address], [place] [address] Nov, [facility] [address] [id number] [address] [place] [address], [place] [address] Nov, [facility] [address] [id number] [address] [place] [address], [place] [address] Nov, [facility] [address] [id number] [address] [place] [address], [place] [address] Oct, [facility] [address] [id number] [address] [place] [address], [place] [address] Oct, [facility] [address] [id number] [address] [place] [address], [place] [address] Oct, [facility] [address] [id number] [address] [place] [address], [place] [address] September, [facility] [address] [id number] [address] [place] [address], [place] [address] September, [facility] [address] [id number] [address] [place] [address], [place] [address] September, [facility] [address] [id number] [address] [place] [address], [place] [address] September, [facility] [address] [id number] [address] [place] [address], [place] [address] September, [facility] [address] [id number] [address] [place] [address], [place] [address] Aug, [facility] [address] [id number] [address] [place] [address], [place] [address] Aug, [facility] [address] [id number] [address] [place] [address], [place] [address] Aug, [facility] [address] [id number] [address] [place] [address], [place] [address] Jul, [facility] [address] [id number] [address] [place] [address], [place] [address] Jul, [facility] [address] [id number] [address] [place] [address], [place] [address] Jul, [facility] [address] [id number] [address] [place] [address], [place] [address] Jul, [facility] [address] [id number] [address] [place] [address], [place] [address] Jul, [facility] [address] [id number] [address] [place] [address], [place] [address] Jul, [facility] [address] [id number] [address] [place] [address], [place] [address] Jul, [facility] [address] [id number] [address] [place] [address], [place] [address] May, [facility] [address] [id number] [address] [place] [address], [place] [address] May, [facility] [address] [id number] [address] [place] [address], [place] [address] May, [facility] [address] [id number] [address] [place] [address], [place] [address] Apr, [facility] [address] [id number] [address] [place] [address], [place] [address] Apr, [facility] [address] [id number] [address] [place] [address], [place] [address] Apr, [facility] [address] [id number] [address] [place] [address], [place] [address] Apr, [facility] [address] [id number] [address] [place] [address], [place] [address] Apr, [facility] [address] [id number] [address] [place] [address], [place] [address] Mar, [facility] [address] [id number] [address] [place] [address], [place] [address] Mar, [facility] [address] [id number] [address] [place] [address], [place] [address] Mar, [facility] [address] [id number] [address] [place] [address], [place] [address] Mar, [facility] [address] [id number] [address] [place] [address], [place] [address] Feb, [facility] [address] [id number] [address] [place] [address], [place] [address] Feb, [facility] [address] [id number] [address] [place] [address], [place] [address] Feb, [facility] [address] [id number] [address] [place] [address], [place] [address] Feb, [facility] [address] [id number] [address] [place] [address], [place] [address] Feb, [facility] [address] [id number] [address] [place] [address], [place] [address] Jan, [facility] [address] [id number] [address] [place] [address], [place] [address] Dec, [facility] [place] [facility] [address] [id number] [address] [place] [address], [place] [address] Dec, [facility] [address] [id number] [address] [place] [address], [place] [address] Dec, [facility] [place] [facility] [address] [id number] [address] [place] [address], [place] [address] Nov, [facility] [place] [facility] [address] [id number] [address] [place] [address], [place] [address] Nov, [facility] [address] [id number] [address] [place] [address], [place] [address] Nov, [facility] [address] [id number] [address] [place] [address], [place] [address] Oct, [facility] [address] [id number] [address] [place] [address], [place] [address] Oct, [facility] [address] [id number] [address] [place] [address], [place] [address] Oct, [facility] [address] [id number] [address] [place] [address], [place] [address] Oct, [facility] [address] [id number] [address] [place] [address], [place] [address] September, [facility] [address] [id number] [address] [place] [address], [place] [address] September, [facility] [address] [id number] [address] [place] [address], [place] [address] Aug, [facility] [address] [id number] [address] [place] [address], [place] [address] Aug, [facility] [address] [id number] [address] [place] [address], [place] [address] Aug, [facility] [address] [id number] [address] [place] [address], [place] [address] Aug, [facility] [address] [id number] [address] [place] [address], [place] [address] Aug, [facility] [address] [id number] [address] [place] [address], [place] [address] Aug, [facility] [address] [id number] [address] [place] [address], [place] [address] Aug, [facility] [address] [id number] [address] [place] [address], [place] [address] Jul, [facility] [address] [id number] [address] [place] [address], [place] [address] Jul, [facility] [address] [id number] [address] [place] [id number] 14 Jul, 2011 [facility] [address] [id number] [address] [place] [phone] May, [facility] [address] [id number] [address] [place] [phone] May, [facility] [address] [id number] [address] [place] [phone] May, [facility] [address] [id number] [address] [place] [phone] Apr, [facility] [address] [id number] [address] [place] [id number] Apr, [facility] [address] [id number] [address] [place] [phone] Mar, [facility] [address] [id number] [address] [place] [phone] Mar, [facility] [address] [id number] [address] [place] [phone] Mar, [facility] [address] [id number] [address] [place] [phone] Mar, [facility] [address] [id number] [address] [place] [phone] Mar, [facility] [address] [id number] [address] [place] [phone] Mar, [facility] [address] [id number] [address] [place] [phone] Feb, [facility] [address] [id number] [address] [place] [phone] Feb, [facility] [address] [id number] [address] [place] [phone] Feb, IMMUNIZATIONS No Known Immunizations SOCIAL HISTORY Never Assessed REASON FOR VISIT controlled refills PLAN OF CARE VITAL SIGNS MEDICATIONS Medication Instructions Dosage Frequency Start Date End Date Duration S tatus MS Contin 15 MG Orally every 8 hours 1 tablet 8h Jul, 28 days Active Hydrocodone-Acetaminophen 10-325 MG Orally [...] foot infections x 3 2015 Hospitalization History [facility] - right big t oe removed 2018
--- OUTSIDE RECORDS SUMMARY | 2020-01-03 07:41 | XMS REPORT ---
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 Name Role Phone FERNY SILVERIO Unavailable PROBLEMS Type Condition ICD9-CM Code AIA12-LB Code Onset Dates Condition S tatus SNOMED Code Problem Insulin long-term use Z79.4 Active 415344126 Problem Hypertension I10 Active 1882519 3 Problem Diabetes E11.9 Active 44133145 Problem Hypoxia R09.02 Active 126563304 Problem Anxiety F41.9 Active 54664331 Problem Port catheter in place Z95.828 Active 055896625 Problem Pressure ulcer of other site, stage 3 L89.893 Active 175585938 Problem COPD (chronic obstructive pulmonary disease) J44.9 Active 29192404 Problem Type 2 diabetes mellitus wit h diabetic peripheral angiopathy without gangrene E11.51 Active 872141232 Problem Back pain M54.9 Active 231135073 Problem PAD (peripheral artery disease) I73.9 Active 703530368 Problem Lumbar radiculopathy, chronic M54.16 Active 587614962 Problem Recurrent major depressive disorder, in full remission F33.42 Active 676046259 Problem 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.4 Active 209484487 ALLERGIES No Information ENCOUNTERS Encounter Location Date Diagnosis [facility] [address] [facility] [id number] [address] [place] [phone] Jan, [facility] [address] [facility] [id number] [address] [place] [phone] Jan, Back pain M54.9 [facility] [address] [facility] [id number] [address] [place] [phone] Jan, [facility] [address] [facility] [id number] [address] [place] [id number] Dec, Acute non-recurrent frontal sinusitis J01.10 [facility] [address] [id number] [address] [place] [id number] Dec, Acute non-recurrent frontal sinusitis J01.10 [facility] [address] [id number] [address] [place] [id number] Dec, Type 2 diabetes mellitus wit h diabetic peripheral angiopathy without gangrene E11.51 ; Lumbar radiculopathy, chronic M54.16 ; Recurrent major depressive disorder, in full remission F33.42 and Anxiety F41.9 [facility] [address] [id number] [address] [place] [phone] Dec, [facility] [address] [id number] [address] [place] [id number] Nov, Anxiety F41.9 [facility] [address] [id number] [address] [place] [phone] Nov, [facility] [address] [id number] [address] [place] [phone] Nov, Back pain M54.9 [facility] [address] [id number] [address] [place] [phone] Nov, [facility] [address] [id number] [address] [place] [phone] Nov, Back pain M54.9 [facility] [address] [id number] [address] [place] [id number] Nov, Anxiety F41.9 [facility] [address] [id number] [address] [place] [phone] Nov, [facility] [address] [id number] [address] [place] [phone] Oct, Back pain M54.9 [facility] [address] [id number] [address] [place] [phone] Oct, [facility] [address] [id number] [address] [place] [phone] Oct, [facility] [address] [id number] [address] [place] [phone] Oct, [facility] [address] [id number] [address] [place] [phone] September, Back pain M54.9 [facility] [address] [id number] [address] [place] [id number] September, [facility] [address] [id number] [address] [place] [phone] September, [facility] [address] [id number] [address] [place] [phone] September, [facility] [address] [id number] [address] [place] [phone] Aug, Back pain M54.9 [facility] [address] [id number] [address] [place] [phone] Aug, Anxiety F41.9 [facility] [address] [id number] [address] [place] [phone] Aug, [facility] [address] [id number] [address] [place] [id number] Aug, Pressure ulcer of other site , stage 3 L89.893 and COPD (chronic obstructive pulmonary disease) J44.9 [facility] [address] [facility] [id number] [address] [place] [id number] Aug, History of smoking Z87.891 [facility] [address] [id number] [address] [place] [phone] Jul, Type 2 diabetes mellitus wit h diabetic peripheral angiopathy without gangrene E11.51 [facility] [address] [id number] [address] [place] [id number] Jul, Back pain M54.9 [facility] [address] [facility] [id number] [address] [place] [phone] Jul, Anxiety F41.9 [facility] [address] [id number] [address] [place] [id number] 18 Jul, 2018 [facility] [address] [id number] [address] [place] [id number] 13 Jul, 2018 Back pain M54.9 [facility] [address] [id number] [address] [place] [phone] Jul, Back pain M54.9 [facility] [address] [id number] [address] [place] [phone] Jul, Lumbar radiculopathy, chroni c M54.16 ; Hypertension I10 and Type 2 diabetes mellitus with diabetic peripheral angiopathy without gangrene E11.51 [facility] [address] [id number] [address] [place] [phone] Jul, Back pain M54.9 [facility] [address] [id number] [address] [place] [id number] Jul, Back pain M54.9 and Anxiety F41.9 [facility] [address] [id number] [address] [place] [phone] Jul, [facility] [address] [id number] [address] [place] [phone] May, Back pain M54.9 and Anxiety F41.9 [facility] [address] [id number] [address] [place] [id number] May, [facility] [address] [id number] [address] [place] [id number] Apr, Radiculopathy of lumbar rhiannon on M54.16 ; Back pain M54.9 and Anxiety F41.9 [facility] [address] [id number] [address] [place] [id number] Apr, Diabetes E11.9 ; Muscle spas m M62.838 and Lumbar radiculopathy, chronic M54.16 [facility] [address] [id number] [address] [place] [phone] Apr, [facility] [address] [id number] [address] [place] [phone] Apr, [facility] [address] [facility] [id number] [address] [place] [id number] Mar, Back pain M54.9 and Anxiety F41.9 [facility] [address] [id number] [address] [place] [id number] Mar, [facility] [address] [id number] [address] [place] [phone] Mar, [facility] [address] [facility] [id number] [address] [place] [phone] Mar, [facility] [address] [facility] [id number] [address] [place] [phone] Mar, Encounter for immunization Z 23 [facility] [address] [facility] [id number] [address] [place] [phone] Feb, Back pain M54.9 and Anxiety F41.9 [facility] [address] [facility] [id number] [address] [place] [id number] 04 Feb, 2018 Back pain M54.9 and Anxiety F41.9 [facility] [address] [facility] [id number] [address] [place] [phone] Jan, Back pain M54.9 and Anxiety F41.9 [facility] [address] [facility] [id number] [address] [place] [phone] Jan, [facility] [address] [id number] [address] [place] [id number] Dec, [facility] [address] [facility] [id number] [address] [place] [id number] Dec, Back pain M54.9 and Anxiety F41.9 [facility] [address] [facility] [id number] [address] [place] [id number] Dec, Diabetes E11.9 ; Type 2 diab etes mellitus with diabetic peripheral angiopathy without gangrene E11.51 ; Lumbar radiculopathy, chronic M54.16 ; COPD (chronic obstructive pulmonary disease) J44.9 and Anxiety F41.9 [facility] [address] [id number] [address] [place] [phone] Dec, Back pain M54.9 and Anxiety F41.9 [facility] [address] [id number] [address] [place] [phone] Nov, Back pain M54.9 and Anxiety F41.9 [facility] [address] [id number] [address] [place] [phone] Oct, [facility] [address] [id number] [address] [place] [id number] Oct, Back pain M54.9 and Anxiety F41.9 [facility] [address] [id number] [address] [place] [id number] September, Anxiety F41.9 and Back pain M54.9 [facility] [address] [id number] [address] [place] [id number] September, Diabetes E11.9 ; Hypertensio n I10 ; COPD (chronic obstructive pulmonary disease) J44.9 and Lumbar radiculopathy, chronic M54.16 [facility] [address] [id number] [address] [place] [phone] September, Anxiety F41.9 [facility] [address] [id number] [address] [place] [phone] Aug, [facility] [address] [id number] [address] [place] [phone] Aug, [facility] [address] [id number] [address] [place] [phone] Aug, Anxiety F41.9 and Back pain M54.9 [facility] [address] [id number] [address] [place] [id number] Aug, Medicare annual wellness vis it, initial Z00.00 ; COPD (chronic obstructive pulmonary disease) J44.9 ; PAD (peripheral artery disease) I73.9 ; Insulin long-term use Z79.4 ; Hypertension I10 ; Anxiety F41.9 ; Recurrent major depressive disorder, in full remission F33.42 ; Pressure ulcer of other site, stage 3 L89.893 ; Type 2 diabetes mellitus with diabetic peripheral angiopathy without gangrene E11.51 and 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.4 [facility] [address] [id number] [address] [place] [id number] Jul, Back pain M54.9 [facility] [address] [id number] [address] [place] [id number] Jul, [facility] [place] [address] [facility] [id number] [address] [place] [address] Jul, Anxiety F41.9 and Back pain M54.9 [facility] [address] [id number] [address] [place] [id number] Jul, Diabetes E11.9 [facility] [address] [id number] [address] [place] [id number] May, [facility] [address] [id number] [address] [place] [id number] May, Diabetes E11.9 ; Anxiety F41 .9 ; Back pain M54.9 and COPD (chronic obstructive pulmonary disease) J44.9 [facility] [address] [id number] [address] [place] [id number] May, Back pain M54.9 [facility] [address] [id number] [address] [place] [id number] May, [facility] [address] [id number] [address] [place] [phone] Apr, Back pain M54.9 [facility] [address] [id number] [address] [place] [id number] 30 Mar, 2017 Back pain M54.9 [facility] [address] [id number] [address] [place] [id number] Mar, [facility] [address] [id number] [address] [place] [id number] 16 Mar, 2017 [facility] [address] [id number] [address] [place] [id number] 14 Mar, 2017 Radiculopathy of lumbar rhiannon on M54.16 [facility] [address] [id number] [address] [place] [id number] 13 Mar, 2017 [facility] [address] [facility] [id number] [address] [place] [id number] 07 Mar, 2017 Encounter for immunization Z 23 and Lumbar radiculopathy, chronic M54.16 [facility] [address] [id number] [address] [place] [id number] Mar, Back pain M54.9 and Anxiety F41.9 [facility] [address] [id number] [address] [place] [id number] 10 Feb, 2017 Acute bilateral low back boy n with left-sided sciatica M54.42 and Acute bilateral low back pain with right-sided sciatica M54.41 [facility] [address] [id number] [address] [place] [id number] Feb, [facility] [address] [id number] [address] [place] [id number] Feb, Back pain M54.9 [facility] [address] [id number] [address] [place] [id number] 05 Jan, 2017 Back pain M54.9 and Anxiety F41.9 [facility] [address] [facility] [id number] [address] [place] [id number] 05 Jan, 2017 Diabetes E11.9 [facility] [address] [facility] [id number] [address] [place] [phone] Dec, Diabetes E11.9 ; Back pain M 54.9 ; Anxiety F41.9 and Insulin long- term use Z79.4 [facility] [address] [id number] [address] [place] [id number] Dec, Anxiety F41.9 [facility] [address] [id number] [address] [place] [phone] Dec, Back pain M54.9 [facility] [address] [id number] [address] [place] [phone] Nov, Back pain M54.9 [facility] [address] [id number] [address] [place] [id number] Oct, Back pain M54.9 and Anxiety F41.9 [facility] [address] [id number] [address] [place] [address] September, Back pain M54.9 [facility] [address] [id number] [address] [place] [address] September, Back pain M54.9 and Anxiety F41.9 [facility] [address] [id number] [address] [place] [phone] Aug, Diabetes E11.9 ; Anxiety F41 .9 ; Back pain M54.9 and PAD (peripheral artery disease) I73.9 [facility] [address] [id number] [address] [place] [id number] Aug, Anxiety F41.9 [facility] [address] [id number] [address] [place] [id number] Aug, Back pain M54.9 [facility] [address] [id number] [address] [place] [address] Jul, Back pain M54.9 [facility] [address] [id number] [address] [place] [id number] Jul, Back pain M54.9 [facility] [address] [id number] [address] [place] [address] Jul, Back pain M54.9 [facility] [address] [id number] [address] [place] [id number] 16 Jul, 2016 Dorsalgia M54.9 [facility] [address] [id number] [address] [place] [id number] 14 Jul, 2016 [facility] [address] [id number] [address] [place] [id number] May, Back pain M54.9 [facility] [address] [id number] [address] [place] [id number] May, Diabetes E11.9 ; Anxiety F41 .9 ; Port catheter in place Z95.828 ; Encounter for immunization Z23 and Insulin long-term use Z79.4 [facility] [address] [id number] [address] [place] [address] Apr, Back pain M54.9 [facility] [address] [id number] [address] [place] [address] Apr, Back pain M54.9 [facility] [address] [id number] [address] [place] [phone] Apr, [facility] [address] [id number] [address] [place] [address] Apr, Back pain M54.9 [facility] [address] [id number] [address] [place] [id number] Mar, COPD (chronic obstructive pu lmonary disease) J44.9 [facility] [address] [id number] [address] [place] [phone] Feb, [facility] [address] [id number] [address] [place] [id number] 30 Jan, 2016 [facility] [address] [id number] [address] [place] [id number] Jan, [facility] [address] [id number] [address] [place] [id number] 07 Jan, 2016 [facility] [address] [id number] [address] [place] [phone] Jan, [facility] [address] [id number] [address] [place] [id number] Dec, Diabetes E11.9 ; Hypoxia R09 .02 and Back pain M54.9 [facility] [address] [id number] [address] [place] [id number] Dec, [facility] [address] [id number] [address] [place] [phone] Nov, [facility] [address] [id number] [address] [place] [id number] Oct, Anxiety F41.9 [facility] [address] [id number] [address] [place] [address] Oct, Back pain M54.9 [facility] [address] [id number] [address] [place] [id number] September, Back pain M54.9 [facility] [address] [id number] [address] [place] [phone] September, Diabetes E11.9 [facility] [address] [id number] [address] [place] [address] September, [facility] [address] [id number] [address] [place] [address] September, Diabetes E11.9 ; Insulin sarai g-term use Z79.4 and Back pain M54.9 [facility] [address] [id number] [address] [place] [phone] Aug, Back pain M54.9 [facility] [address] [facility] [id number] [address] [place] [id number] Aug, Back pain M54.9 ; Anxiety F4 1.9 and Arthropathy, unspecified M12.9 [facility] [address] [id number] [address] [place] [address] Jul, Back pain M54.9 [facility] [address] [facility] [id number] [address] [place] [address] Jul, Anxiety F41.9 [facility] [address] [place] [id number] [address] [place] [phone] Jul, Back pain M54.9 [facility] [address] [place] [id number] [place] [address] Jul, [facility] [address] [place] [id number] [address] [place] [phone] Jul, [facility] [address] [place] [id number] [place] [address] May, Back pain M54.9 ; Diabetes E 11.9 ; Insulin long-term use Z79.4 ; COPD (chronic obstructive pulmonary disease) J44.9 and Hypertension I10 [facility] [address] [address] May, Chronic pain G89.29 [facility] [address] [id number] Apr, [facility] [address] [place] [id number] [place] [address] Apr, [facility] [address] [id number] Mar, [facility] [address] [id number] Mar, Encounter for immunization Z 23 and Diabetes E11.9 [facility] [address] [place] [id number] [place] [address] Feb, [facility] [address] [place] [id number] [address] [place] [id number] Feb, [facility] [address] [id number] Jan, [facility] [address] [id number] [address] [place] [phone] Jan, [facility] [address] [id number] [address] [place] [address], [place] [address] Dec, [facility] [address] [id number] [address] [place] [address], [place] [address] Dec, [facility] [address] [id number] [address] [place] [address], [place] [address] Dec, Unspecified arthropathy, sit e unspecified 716.90 and Diabetes mellitus type 2, uncontrolled 250.02 [facility] [address] [id number] [address] [place] [address], [place] [address] Dec, [facility] [address] [id number] [address] [place] [id number] Nov, [facility] [address] [id number] [address] [place] [address], [place] [address] Oct, [facility] [address] [id number] [address] [place] [id number] September, [facility] [address] [id number] [address] [place] [address], [place] [address] September, [facility] [address] [id number] [address] [place] [id number] September, [facility] [address] [id number] [address] [place] [id number] September, [facility] [address] [id number] [address] [place] [id number] Aug, [facility] [address] [id number] [address] [place] [id number] Aug, [facility] [address] [id number] [address] [place] [phone] Jul, [facility] [address] [id number] [address] [place] [id number] 18 Jul, 2014 [facility] [address] [id number] [facility] [address] 16 Jul, 2014 [facility] [address] [id number] [address] [place] [address], [place] [address] 16 Jul, 2014 [facility] [address] [id number] [address] [place] [address], [place] [address] 16 Jul, 2014 [facility] [address] [id number] [address] [place] [address], [place] [address] 16 Jul, 2014 [facility] [address] [id number] [address] [place] [address], [place] [address] 16 Jul, 2014 [facility] [address] [id number] [address] [place] [address], [place] [address] 16 Jul, 2014 [facility] [address] [id number] [address] [place] [address], [place] [address] 16 Jul, 2014 [facility] [address] [id number] [address] [place] [address], [place] [address] 13 Jul, 2014 [facility] [address] [id number] [address] [place] [address], [place] [address] 13 Jul, 2014 [facility] [address] [id number] [address] [place] [address], [place] [address] 09 Jul, 2014 [facility] [address] [id number] [address] [place] [address], [place] [address] 09 Jul, 2014 [facility] [address] [id number] [address] [place] [address], [place] [address] 17 Jul, 2014 [facility] [address] [id number] [address] [place] [address], [place] [address] 17 Jul, 2014 [facility] [address] [id number] [address] [place] [address], [place] [address] 16 Jul, 2014 [facility] [address] [id number] [address] [place] [address], [place] [address] 16 Jul, 2014 [facility] [address] [id number] [address] [place] [address], [place] [address] 16 Jul, 2014 [facility] [address] [id number] [address] [place] [address], [place] [address] 16 Jul, 2014 [facility] [address] [id number] [address] [place] [address], [place] [address] 16 Jul, 2014 [facility] [address] [id number] [address] [place] [address], [place] [address] 16 Jul, 2014 [facility] [address] [id number] [address] [place] [address], [place] [address] Jul, 2014 [facility] [address] [id number] [address] [place] [address], [place] [address] Jul, 2014 [facility] [address] [id number] [address] [place] [address], [place] [address] 16 Jul, 2014 [facility] [address] [id number] [address] [place] [address], [place] [address] Jul, 2014 [facility] [address] [id number] [address] [place] [address], [place] [address] Jul, 2014 [facility] [address] [id number] [address] [place] [address], [place] [address] Jul, 2014 [facility] [address] [id number] [address] [place] [address], [place] [address] Jul, 2014 [facility] [address] [id number] [address] [place] [address] Jul, 2014 [facility] [address] [id number] [address] [place] [address], [place] [address] May, [facility] [address] [id number] [address] [place] [address] May, [facility] [address] [id number] [address] [place] [address] May, [facility] [address] [id number] [address] [place] [address] May, [facility] [address] [id number] [address] [place] [address], [place] [address] May, [facility] [address] [id number] [address] [place] [address], [place] [address] May, [facility] [address] [id number] [address] [place] [address], [place] [address] May, [facility] [address] [id number] [address] [place] [address], [place] [address] May, [facility] [address] [id number] [address] [place] [address], [place] [address] May, [facility] [address] [id number] [address] [place] [address], [place] [address] May, [facility] [address] [id number] [address] [place] [address], [place] [address] Apr, [facility] [address] [id number] [address] [place] [address], [place] [address] Apr, [facility] [address] [id number] [address] [place] [address], [place] [address] Apr, [facility] [address] [id number] [address] [place] [address], [place] [address] Apr, [facility] [address] [id number] [address] [place] [address], [place] [address] Apr, [facility] [address] [id number] [address] [place] [address], [place] [address] Apr, [facility] [address] [id number] [address] [place] [address], [place] [address] Mar, [facility] [address] [id number] [address] [place] [address], [place] [address] Mar, [facility] [address] [id number] [address] [place] [address], [place] [address] Mar, [facility] [address] [id number] [address] [place] [address], [place] [address] Mar, [facility] [address] [id number] [address] [place] [address], [place] [address] Mar, [facility] [address] [id number] [address] [place] [address], [place] [address] Mar, [facility] [address] [id number] [address] [place] [address], [place] [address] Mar, [facility] [address] [id number] [address] [place] [address], [place] [address] Mar, [facility] [address] [id number] [address] [place] [address], [place] [address] Mar, [facility] [address] [id number] [address] [place] [address], [place] [address] Mar, [facility] [address] [id number] [address] [place] [address], [place] [address] Mar, [facility] [address] [id number] [address] [place] [address], [place] [address] Feb, [facility] [address] [id number] [address] [place] [address], [place] [address] 30 Feb, 2014 [facility] [address] [id number] [address] [place] [address], [place] [address] 15 Feb, 2014 [facility] [address] [id number] [address] [place] [address], [place] [address] 15 Feb, 2014 [facility] [address] [id number] [address] [place] [address], [place] [address] Feb, [facility] [address] [id number] [address] [place] [address], [place] [address] Feb, [facility] [address] [id number] [address] [place] [address], [place] [address] Feb, [facility] [address] [id number] [address] [place] [address], [place] [address] Feb, [facility] [address] [id number] [facility] [address] Feb, [facility] [address] [id number] [address] [place] [address], [place] [address] Feb, [facility] [address] [id number] [address] [place] [address], [place] [address] Jan, [facility] [address] [id number] [address] [place] [address], [place] [address] Jan, [facility] [address] [id number] [address] [place] [address], [place] [address] Jan, [facility] [address] [id number] [address] [place] [address], [place] [address] Jan, [facility] [address] [id number] [address] [place] [address], [place] [address] Jan, [facility] [address] [id number] [address] [place] [address], [place] [address] Jan, [facility] [address] [id number] [address] [place] [address], [place] [address] Jan, [facility] [address] [id number] [address] [place] [address], [place] [address] Dec, [facility] [address] [id number] [address] [place] [address], [place] [address] Dec, [facility] [address] [id number] [address] [place] [address], [place] [address] Dec, [facility] [address] [id number] [address] [place] [address], [place] [address] Dec, [facility] [address] [id number] [address] [place] [address], [place] [address] Dec, [facility] [address] [id number] [address] [place] [address], [place] [address] Dec, [facility] [address] [id number] [address] [place] [address], [place] [address] Dec, [facility] [address] [id number] [address] [place] [address], [place] [address] Dec, [facility] [address] [id number] [address] [place] [address], [place] [address] Oct, [facility] [address] [id number] [address] [place] [address], [place] [address] Oct, [facility] [address] [id number] [address] [place] [address], [place] [address] September, [facility] [address] [id number] [address] [place] [address], [place] [address] September, [facility] [address] [id number] [address] [place] [address], [place] [address] September, [facility] [address] [id number] [address] [place] [address], [place] [address] September, [facility] [address] [id number] [address] [place] [address], [place] [address] September, [facility] [address] [id number] [address] [place] [address], [place] [address] September, [facility] [address] [id number] [address] [place] [address], [place] [address] September, [facility] [address] [id number] [address] [place] [address], [place] [address] Aug, [facility] [address] [id number] [address] [place] [address], [place] [address] Aug, [facility] [address] [id number] [address] [place] [address], [place] [address] Jul, [facility] [address] [id number] [address] [place] [address], [place] [address] Jul, [facility] [address] [id number] [address] [place] [address], [place] [address] Jul, [facility] [address] [id number] [address] [place] [address], [place] [address] 17 Jul, 2013 [facility] [address] [id number] [address] [place] [address], [place] [address] 14 Jul, 2013 [facility] [address] [id number] [address] [place] [address], [place] [address] 14 Jul, 2013 [facility] [address] [id number] [address] [place] [address], [place] [address] Jul, [facility] [address] [id number] [address] [place] [address], [place] [address] Jul, [facility] [address] [id number] [address] [place] [address], [place] [address] 15 May, 2013 [facility] [address] [id number] [address] [place] [address], [place] [address] May, [facility] [address] [id number] [address] [place] [address], [place] [address] May, [facility] [address] [id number] [address] [place] [address], [place] [address] May, [facility] [address] [id number] [address] [place] [address], [place] [address] 18 Apr, 2013 [facility] [address] [id number] [address] [place] [address], [place] [address] Mar, [facility] [address] [id number] [address] [place] [address], [place] [address] Mar, [facility] [address] [id number] [address] [place] [address], [place] [address] Mar, [facility] [address] [id number] [address] [place] [address], [place] [address] Mar, [facility] [address] [id number] [address] [place] [address], [place] [address] 18 Mar, 2013 [facility] [address] [id number] [address] [place] [address], [place] [address] 18 Mar, 2013 [facility] [address] [id number] [address] [place] [address], [place] [address] 18 Mar, 2013 [facility] [address] [id number] [address] [place] [address], [place] [address] 18 Mar, 2013 [facility] [address] [id number] [address] [place] [address], [place] [address] Mar, [facility] [address] [id number] [address] [place] [address], [place] [address] Mar, [facility] [address] [id number] [address] [place] [address], [place] [address] Mar, [facility] [address] [id number] [address] [place] [address], [place] [address] Mar, [facility] [address] [id number] [address] [place] [address], [place] [address] 15 Feb, 2013 [facility] [address] [id number] [address] [place] [address], [place] [address] 15 Feb, 2013 [facility] [address] [id number] [address] [place] [address], [place] [address] Feb, [facility] [address] [id number] [address] [place] [address], [place] [address] Feb, [facility] [address] [id number] [address] [place] [address], [place] [address] Feb, [facility] [address] [id number] [address] [place] [address], [place] [address] Jan, [facility] [address] [id number] [address] [place] [address], [place] [address] Dec, [facility] [address] [id number] [address] [place] [address], [place] [address] Dec, [facility] [address] [id number] [address] [place] [address], [place] [address] Dec, [facility] [address] [id number] [address] [place] [address], [place] [address] Nov, [facility] [address] [id number] [address] [place] [address], [place] [address] Nov, [facility] [address] [id number] [address] [place] [address], [place] [address] Nov, [facility] [address] [id number] [address] [place] [address], [place] [address] Oct, [facility] [address] [id number] [address] [place] [address], [place] [address] Oct, [facility] [address] [id number] [address] [place] [address], [place] [address] Oct, [facility] [address] [id number] [address] [place] [address], [place] [address] September, [facility] [address] [id number] [address] [place] [address], [place] [address] September, [facility] [address] [id number] [address] [place] [address], [place] [address] September, [facility] [address] [id number] [address] [place] [address], [place] [address] September, [facility] [address] [id number] [address] [place] [address], [place] [address] September, [facility] [address] [id number] [address] [place] [address], [place] [address] Aug, [facility] [address] [id number] [address] [place] [address], [place] [address] Aug, [facility] [address] [id number] [address] [place] [address], [place] [address] Aug, [facility] [address] [id number] [address] [place] [address], [place] [address] Jul, [facility] [address] [id number] [address] [place] [address], [place] [address] Jul, [facility] [address] [id number] [address] [place] [address], [place] [address] Jul, [facility] [address] [id number] [address] [place] [address], [place] [address] Jul, [facility] [address] [id number] [address] [place] [address], [place] [address] Jul, [facility] [address] [id number] [address] [place] [address], [place] [address] Jul, [facility] [address] [id number] [address] [place] [address], [place] [address] Jul, [facility] [address] [id number] [address] [place] [address], [place] [address] May, [facility] [address] [id number] [address] [place] [address], [place] [address] May, [facility] [address] [id number] [address] [place] [address], [place] [address] May, [facility] [address] [id number] [address] [place] [address], [place] [address] Apr, [facility] [address] [id number] [address] [place] [address], [place] [address] Apr, [facility] [address] [id number] [address] [place] [address], [place] [address] Apr, [facility] [address] [id number] [address] [place] [address], [place] [address] Apr, [facility] [address] [id number] [address] [place] [address], [place] [address] Apr, [facility] [address] [id number] [address] [place] [address], [place] [address] Mar, [facility] [address] [id number] [address] [place] [address], [place] [address] Mar, [facility] [address] [id number] [address] [place] [address], [place] [address] 15 Mar, 2012 [facility] [address] [id number] [address] [place] [address], [place] [address] Mar, [facility] [address] [id number] [address] [place] [address], [place] [address] Feb, [facility] [address] [id number] [address] [place] [address], [place] [address] Feb, [facility] [address] [id number] [address] [place] [address], [place] [address] Feb, [facility] [address] [id number] [address] [place] [address], [place] [address] Feb, [facility] [address] [id number] [address] [place] [address], [place] [address] Feb, [facility] [address] [id number] [address] [place] [address], [place] [address] Jan, [facility] [address] [id number] [address] [place] [address], [place] [address] Dec, [facility] [address] [id number] [address] [place] [address], [place] [address] Dec, [facility] [address] [id number] [address] [place] [address], [place] [address] Dec, [facility] [address] [id number] [address] [place] [address], [place] [address] Nov, [facility] [address] [id number] [address] [place] [address], [place] [address] Nov, [facility] [address] [id number] [address] [place] [address], [place] [address] Nov, [facility] [address] [id number] [address] [place] [address], [place] [address] Oct, [facility] [address] [id number] [address] [place] [address], [place] [address] Oct, [facility] [address] [id number] [address] [place] [address], [place] [address] Oct, [facility] [address] [id number] [address] [place] [address], [place] [address] Oct, [facility] [address] [id number] [address] [place] [address], [place] [address] September, [facility] [address] [id number] [address] [place] [address], [place] [address] September, [facility] [address] [id number] [address] [place] [address], [place] [address] Aug, [facility] [address] [id number] [address] [place] [address], [place] [address] Aug, [facility] [address] [id number] [address] [place] [address], [place] [address] Aug, [facility] [address] [id number] [address] [place] [address], [place] [address] Aug, [facility] [address] [id number] [address] [place] [address], [place] [address] Aug, [facility] [address] [id number] [address] [place] [address], [place] [address] Aug, [facility] [address] [id number] [address] [place] [address], [place] [address] Aug, [facility] [address] [id number] [address] [place] [address], [place] [address] Jul, [facility] [address] [id number] [address] [place] [address], [place] [address] Jul, [facility] [address] [id number] [address] [place] [address], [place] [address] Jul, [facility] [address] [id number] [address] [place] [address], [place] [address] May, [facility] [address] [id number] [address] [place] [id number] May, [facility] [address] [id number] [address] [place] [id number] May, [facility] [address] [id number] [address] [place] [id number] Apr, [facility] [address] [id number] [address] [place] [id number] Apr, [facility] [address] [id number] [address] [place] [id number] Mar, [facility] [address] [id number] [address] [place] [id number] Mar, [facility] [address] [id number] [address] [place] [id number] Mar, [facility] [address] [id number] [address] [place] [id number] Mar, [facility] [address] [id number] [address] [place] [id number] Mar, [facility] [address] [id number] [address] [place] [id number] Mar, [facility] [address] [id number] [address] [place] [id number] Feb, [facility] [address] [id number] [address] [place] [id number] Feb, [facility] [address] [id number] [address] [place] [id number] Feb, IMMUNIZATIONS No Known Immunizations SOCIAL HISTORY [...] foot infections x 3 2016 Hospitalization History [facility] - right big t oe removed 2019
--- OUTSIDE RECORDS SUMMARY | 2020-01-03 07:41 | XMS REPORT ---
Author Author Tra SILVERIO Organization [facility] Address [address] [place] [address] Care Team Providers Care Operations Accountant Name Role Phone FERNY SILVERIO Unavailable PROBLEMS Type Condition ICD9-CM Code [id number] Code Onset Dates Condition S tatus SNOMED Code Problem Insulin long-term use Z79.4 Active 401853069 Problem Hypertension I10 Active 9899764 3 Problem Diabetes E11.9 Active 34238095 Problem Hypoxia R09.02 Active 835829904 Problem Anxiety F41.9 Active 72239600 Problem Port catheter in place Z95.828 Active 688901883 Problem Pressure ulcer of other site, stage 3 L89.893 Active 511755938 Problem COPD (chronic obstructive pulmonary disease) J44.9 Active 73605317 Problem Type 2 diabetes mellitus wit h diabetic peripheral angiopathy without gangrene E11.51 Active 776707227 Problem Back pain M54.9 Active 264125895 Problem PAD (peripheral artery disease) I73.9 Active 064095396 Problem Lumbar radiculopathy, chronic M54.16 Active 889414560 Problem Recurrent major depressive disorder, in full remission F33.42 Active 108351170 Problem MCC current use of insulin Z79.4 Active 748915465 ALLERGIES No Information ENCOUNTERS Encounter Location Date Diagnosis [facility] [address] [facility] [id number] [address] [place] [phone] Jan, [facility] [address] [facility] [id number] [address] [place] [phone] Jan, Back pain M54.9 [facility] [address] [facility] [id number] [address] [place] [id number] Jan, [facility] [address] [facility] [id number] [address] [place] [phone] Dec, Acute non-recurrent frontal sinusitis J01.10 [facility] [address] [id number] [address] [place] [phone] Dec, Acute non-recurrent frontal sinusitis J01.10 [facility] [address] [id number] [address] [place] [phone] Dec, Type 2 diabetes mellitus wit h diabetic peripheral angiopathy without gangrene E11.51 ; Lumbar radiculopathy, chronic M54.16 ; Recurrent major depressive disorder, in full remission F33.[address] [facility] [address] [id number] [address] [place] [id number] Dec, [facility] [address] [id number] [address] [place] [phone] Nov, Anxiety F41.9 [facility] [address] [id number] [address] [place] [phone] Nov, [facility] [address] [id number] [address] [place] [phone] Nov, Back pain M54.9 [facility] [address] [id number] [address] [place] [phone] Nov, [facility] [address] [id number] [address] [place] [phone] Nov, Back pain M54.9 [facility] [address] [id number] [address] [place] [phone] Nov, Anxiety F41.9 [facility] [address] [id number] [address] [place] [id number] Nov, [facility] [address] [id number] [address] [place] [id number] Oct, Back pain M54.9 [facility] [address] [id number] [address] [place] [id number] Oct, [facility] [address] [id number] [address] [place] [phone] Oct, [facility] [address] [id number] [address] [place] [phone] Oct, [facility] [address] [id number] [address] [place] [phone] September, Back pain M54.9 [facility] [address] [id number] [address] [place] [id number] September, [facility] [address] [id number] [address] [place] [phone] September, [facility] [address] [id number] [address] [place] [phone] September, [facility] [address] [id number] [address] [place] [id number] Aug, Back pain M54.9 [facility] [address] [id number] [address] [place] [phone] Aug, Anxiety F41.9 [facility] [address] [id number] [address] [place] [phone] Aug, [facility] [address] [id number] [address] [place] [id number] Aug, Pressure ulcer of other site , stage 3 L89.893 and COPD (chronic obstructive pulmonary disease) J44.9 [facility] [address] [facility] [id number] [address] [place] [phone] Aug, History of smoking Z87.891 [facility] [address] [id number] [address] [place] [phone] Jul, Type 2 diabetes mellitus wit h diabetic peripheral angiopathy without gangrene E11.51 [facility] [address] [id number] [address] [place] [id number] Jul, Back pain M54.9 [facility] [address] [facility] [id number] [address] [place] [phone] Jul, Anxiety F41.9 [facility] [address] [id number] [address] [place] [id number] 18 Jul, 2018 [facility] [address] [id number] [address] [place] [phone] 13 Jul, [address] [facility] [address] [id number] [address] [place] [id number] Jul, Back pain M54.9 [facility] [address] [id number] [address] [place] [phone] Jul, Lumbar radiculopathy, chroni c M54.16 ; Hypertension I10 and Type 2 diabetes mellitus with diabetic peripheral angiopathy without gangrene E11.51 [facility] [address] [id number] [address] [place] [phone] Jul, Back pain M54.9 [facility] [address] [id number] [address] [place] [id number] Jul, Back pain M54.[address] [facility] [address] [id number] [address] [place] [id number] Jul, [facility] [address] [id number] [address] [place] [phone] May, Back pain M54.[address] [facility] [address] [id number] [address] [place] [id number] May, [facility] [address] [id number] [address] [place] [phone] Apr, Radiculopathy of lumbar rhiannon on M54.16 ; Back pain M54.[address] [facility] [address] [id number] [address] [place] [phone] Apr, Diabetes E11.9 ; Muscle spas m M62.838 and Lumbar radiculopathy, chronic M54.16 [facility] [address] [id number] [address] [place] [phone] Apr, [facility] [address] [id number] [address] [place] [phone] Apr, [facility] [address] [facility] [id number] [address] [place] [phone] Mar, Back pain M54.[address] [facility] [address] [id number] [address] [place] [id number] Mar, [facility] [address] [id number] [address] [place] [phone] Mar, [facility] [address] [facility] [id number] [address] [place] [phone] Mar, [facility] [address] [facility] [id number] [address] [place] [phone] Mar, Encounter for immunization Z 23 [facility] [address] [facility] [id number] [address] [place] [id number] Feb, Back pain M54.[address] [facility] [address] [facility] [id number] [address] [place] [phone] 04 Feb, 2018 Back pain M54.[address] [facility] [address] [facility] [id number] [address] [place] [phone] Jan, Back pain M54.[address] [facility] [address] [facility] [id number] [address] [place] [phone] Jan, [facility] [address] [id number] [address] [place] [phone] Dec, [facility] [address] [facility] [id number] [address] [place] [phone] Dec, Back pain M54.[address] [facility] [address] [facility] [id number] [address] [place] [phone] Dec, Diabetes E11.9 ; Type 2 diab etes mellitus with diabetic peripheral angiopathy without gangrene E11.51 ; Lumbar radiculopathy, chronic M54.16 ; COPD (chronic obstructive pulmonary disease) J44.[address] [facility] [address] [id number] [address] [place] [id number] Dec, Back pain M54.[address] [facility] [address] [id number] [address] [place] [id number] Nov, Back pain M54.9 and Anxiety F41.9 [place] [address] [id number] [address] [place] [phone] Oct, [place] [address] [id number] [address] [place] [id number] Oct, Back pain M54.9 and Anxiety F41.9 [place] [address] [id number] [address] [place] [phone] September, Anxiety F41.9 and Back pain M54.9 [place] [id number] [id number] [address] [place] [id number] September, Diabetes E11.9 ; Hypertensio n I10 ; COPD (chronic obstructive pulmonary disease) J44.9 and Lumbar radiculopathy, chronic M54.16 [place] [address] [id number] [address] [place] [phone] September, Anxiety F41.9 [facility] [address] [id number] [address] [place] [phone] Aug, [facility] [address] [id number] [address] [place] [id number] Aug, [facility] [address] [id number] [address] [place] [phone] Aug, Anxiety F41.9 and Back pain M54.9 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 [address] [id number] [address] [place] [phone] Jul, Back pain M54.9 [facility] [address] [id number] [address] [place] [id number] Jul, [place] [address] [facility] [id number] [address] [place] [phone] Jul, Anxiety F41.9 and Back pain M54.9 [facility] [address] [id number] [address] [place] [id number] Jul, Diabetes E11.9 [facility] [address] [id number] [address] [place] [id number] May, [facility] [address] [id number] [address] [place] [phone] May, Diabetes E11.9 ; Anxiety F41 .9 ; Back pain M54.9 and COPD (chronic obstructive pulmonary disease) J44.9 [facility] [address] [id number] [address] [place] [id number] May, Back pain M54.9 [facility] [address] [id number] [address] [place] [id number] May, [facility] [address] [id number] [address] [place] [phone] Apr, Back pain M54.9 [facility] [address] [id number] [address] [place] [id number] 30 Mar, [address] [facility] [address] [id number] [address] [place] [phone] Mar, [facility] [address] [id number] [address] [place] [phone] 16 Mar, 2017 [facility] [address] [id number] [address] [place] [id number] 14 Mar, 2017 Radiculopathy of lumbar rhiannon on M54.16 [facility] [address] [id number] [address] [place] [phone] 13 Mar, 2017 [facility] [address] [facility] [id number] [address] [place] [id number] 07 Mar, 2017 Encounter for immunization Z 23 and Lumbar radiculopathy, chronic M54.16 [facility] [address] [id number] [address] [place] [phone] Mar, Back pain M54.9 and Anxiety F41.9 [facility] [address] [id number] [address] [place] [phone] 10 Feb, 2017 Acute bilateral low back boy n with left-sided sciatica M54.42 and Acute bilateral low back pain with right-sided sciatica M54.41 [facility] [address] [id number] [address] [place] [phone] Feb, [facility] [address] [id number] [address] [place] [phone] Feb, Back pain M54.9 [facility] [address] [id number] [address] [place] [phone] 05 Jan, 2017 Back pain M54.[address] [facility] [address] [facility] [id number] [address] [place] [phone] 05 Jan, [address] [facility] [address] [facility] [id number] [address] [place] [phone] Dec, Diabetes E11.9 ; Back pain M 54.9 ; Anxiety F41.9 and Insulin long- term use Z79.4 [facility] [address] [id number] [address] [place] [id number] Dec, Anxiety F41.9 [facility] [address] [id number] [address] [place] [phone] Dec, Back pain M54.9 [facility] [address] [id number] [address] [place] [phone] Nov, Back pain M54.9 [facility] [address] [id number] [address] [place] [phone] Oct, Back pain M54.[address] [facility] [address] [id number] [address] [place] [id number] September, Back pain M54.9 [facility] [address] [id number] [address] [place] [phone] September, Back pain M54.[address] [facility] [address] [id number] [address] [place] [id number] Aug, Diabetes E11.9 ; Anxiety F41 .9 ; Back pain M54.9 and PAD (peripheral artery disease) I73.9 [facility] [address] [id number] [address] [place] [phone] Aug, Anxiety F41.9 [facility] [address] [id number] [address] [place] [phone] Aug, Back pain M54.9 [facility] [address] [id number] [address] [place] [id number] Jul, Back pain M54.9 [facility] [address] [id number] [address] [place] [phone] Jul, Back pain M54.9 [facility] [address] [id number] [address] [place] [phone] Jul, Back pain M54.9 [facility] [address] [id number] [address] [place] [id number] 16 Jul, [address] [facility] [address] [id number] [address] [place] [phone] 14 Jul, 2016 [facility] [address] [id number] [address] [place] [id number] May, Back pain M54.9 [facility] [address] [id number] [address] [place] [phone] May, Diabetes E11.9 ; Anxiety F41 .9 ; Port catheter in place Z95.828 ; Encounter for immunization Z23 and Insulin long-term use Z79.4 [facility] [address] [id number] [address] [place] [phone] Apr, Back pain M54.9 [facility] [address] [id number] [address] [place] [id number] Apr, Back pain M54.9 [facility] [address] [id number] [address] [place] [phone] Apr, [facility] [address] [id number] [address] [place] [id number] Apr, Back pain M54.9 [facility] [address] [id number] [address] [place] [id number] Mar, COPD (chronic obstructive pu lmonary disease) J44.9 [facility] [address] [id number] [address] [place] [id number] Feb, [facility] [address] [id number] [address] [place] [id number] [address] Jan, 2016 [facility] [address] [id number] [address] [place] [phone] Jan, [facility] [address] [id number] [address] [place] [phone] 07 Jan, 2016 [facility] [address] [id number] [address] [place] [phone] Jan, [facility] [address] [id number] [address] [place] [phone] Dec, Diabetes E11.9 ; Hypoxia R09 .02 and Back pain M54.9 [facility] [address] [id number] [address] [place] [phone] Dec, [facility] [address] [id number] [address] [place] [phone] Nov, [facility] [address] [id number] [address] [place] [phone] Oct, Anxiety F41.9 [facility] [address] [id number] [address] [place] [phone] Oct, Back pain M54.9 [facility] [address] [id number] [address] [place] [phone] September, Back pain M54.9 [facility] [address] [id number] [address] [place] [id number] September, Diabetes E11.9 [facility] [address] [id number] [address] [place] [phone] September, [facility] [address] [id number] [address] [place] [phone] September, Diabetes E11.9 ; Insulin sarai g-term use Z79.4 and Back pain M54.9 [facility] [address] [id number] [address] [place] [phone] Aug, Back pain M54.9 [facility] [address] [facility] [id number] [address] [place] [id number] Aug, Back pain M54.9 ; Anxiety F4 1.9 and Arthropathy, unspecified M12.9 [facility] [address] [id number] [address] [place] [phone] Jul, Back pain M54.9 [facility] [address] [facility] [id number] [address] [place] [phone] Jul, Anxiety F41.9 [facility] [address] [place] [id number] [address] [place] [phone] Jul, Back pain M54.9 [facility] [address] [place] [id number] [place] [phone] Jul, [facility] [address] [place] [id number] [address] [place] [phone] Jul, [facility] [address] [place] [id number] [place] [phone] May, Back pain M54.9 ; Diabetes E 11.9 ; Insulin long-term use Z79.4 ; COPD (chronic obstructive pulmonary disease) J44.[address] [facility] [address] [id number] May, Chronic pain G89.29 [facility] [address] [id number] Apr, [facility] [address] [place] [id number] [place] [phone] Apr, [facility] [address] [id number] Mar, [facility] [address] [phone] Mar, Encounter for immunization Z [address] [facility] [address] [place] [id number] [place] [phone] Feb, [facility] [address] [place] [id number] [address] [place] [phone] Feb, [facility] [address] [id number] Jan, [facility] [address] [id number] [address] [place] [phone] Jan, [facility] [address] [id number] [address] [place] [address], [place] [phone] Dec, [facility] [address] [id number] [address] [place] [address], [place] [phone] Dec, [facility] [address] [id number] [address] [place] [address], [place] [id number] Dec, Unspecified arthropathy, sit e unspecified 716.90 and Diabetes mellitus type [address], [address] [facility] [address] [id number] [address] [place] [address], [place] [phone] Dec, [facility] [address] [id number] [address] [place] [phone] Nov, [facility] [address] [id number] [address] [place] [address] [place] [phone] Oct, [facility] [address] [id number] [address] [place] [phone] September, [facility] [address] [id number] [address] [place] [address], [place] [phone] September, [facility] [address] [id number] [address] [place] [phone] September, [facility] [address] [id number] [address] [place] [phone] September, [facility] [address] [id number] [address] [place] [id number] Aug, [facility] [address] [id number] [address] [place] [id number] Aug, [facility] [address] [id number] [address] [place] [id number] Jul, [facility] [address] [id number] [address] [place] [id number] 18 Jul, 2014 [facility] [address] [id number] [facility] [place] [address] 16 Jul, 2014 [facility] [address] [id number] [address] [place] [address], [place] [address] 16 Jul, 2014 [facility] [address] [id number] [address] [place] [address], [place] [address] 16 Jul, 2014 [facility] [address] [id number] [address] [place] [address], [place] [address] 16 Jul, 2014 [facility] [address] [id number] [address] [place] [address], [place] [address] 16 Jul, 2014 [facility] [address] [id number] [address] [place] [address], [place] [address] 16 Jul, 2014 [facility] [address] [id number] [address] [place] [address], [place] [address] 16 Jul, 2014 [facility] [address] [id number] [address] [place] [address], [place] [address] 13 Jul, 2014 [facility] [address] [id number] [address] [place] [address], [place] [address] 13 Jul, 2014 [facility] [address] [id number] [address] [place] [address], [place] [address] 09 Jul, 2014 [facility] [address] [id number] [address] [place] [address], [place] [address] 09 Jul, 2014 [facility] [address] [id number] [address] [place] [address], [place] [address] 17 Jul, 2014 [facility] [address] [id number] [address] [place] [address], [place] [address] 17 Jul, 2014 [facility] [address] [id number] [address] [place] [address], [place] [address] 16 Jul, 2014 [facility] [address] [id number] [address] [place] [address], [place] [address] 16 Jul, 2014 [facility] [address] [id number] [address] [place] [address], [place] [address] 16 Jul, 2014 [facility] [address] [id number] [address] [place] [address], [place] [address] 16 Jul, 2014 [facility] [address] [id number] [address] [place] [address], [place] [address] 16 Jul, 2014 [facility] [address] [id number] [address] [place] [address], [place] [address] 16 Jul, 2014 [facility] [address] [id number] [address] [place] [address], [place] [address] Jul, 2014 [facility] [address] [id number] [address] [place] [address], [place] [address] Jul, 2014 [facility] [address] [id number] [address] [place] [address], [place] [address] 16 Jul, 2014 [facility] [address] [id number] [address] [place] [address], [place] [address] Jul, 2014 [facility] [address] [id number] [address] [place] [address], [place] [address] Jul, 2014 [facility] [address] [id number] [address] [place] [address], [place] [address] Jul, 2014 [facility] [address] [id number] [address] [place] [address], [place] [address] Jul, 2014 [facility] [address] [id number] [address] [place] [address] Jul, 2014 [facility] [address] [id number] [address] [place] [address], [place] [address] May, [facility] [address] [id number] [address] [place] [address] May, [facility] [address] [id number] [address] [place] [address] May, [facility] [address] [id number] [address] [place] [address] May, [facility] [address] [id number] [address] [place] [address], [place] [address] May, [facility] [address] [id number] [address] [place] [address], [place] [address] May, [facility] [address] [id number] [address] [place] [address], [place] [address] May, [facility] [address] [id number] [address] [place] [address], [place] [address] May, [facility] [address] [id number] [address] [place] [address], [place] [address] May, [facility] [address] [id number] [address] [place] [address], [place] [address] May, [facility] [address] [id number] [address] [place] [address], [place] [address] Apr, [facility] [address] [id number] [address] [place] [address], [place] [address] Apr, [facility] [address] [id number] [address] [place] [address], [place] [address] Apr, [facility] [address] [id number] [address] [place] [address], [place] [address] Apr, [facility] [address] [id number] [address] [place] [address], [place] [address] Apr, [facility] [address] [id number] [address] [place] [address], [place] [address] Apr, [facility] [address] [id number] [address] [place] [address], [place] [address] Mar, [facility] [address] [id number] [address] [place] [address], [place] [address] Mar, [facility] [address] [id number] [address] [place] [address], [place] [address] Mar, [facility] [address] [id number] [address] [place] [address], [place] [address] Mar, [facility] [address] [id number] [address] [place] [address], [place] [address] Mar, [facility] [address] [id number] [address] [place] [address], [place] [address] Mar, [facility] [address] [id number] [address] [place] [address], [place] [address] Mar, [facility] [address] [id number] [address] [place] [address], [place] [address] Mar, [facility] [address] [id number] [address] [place] [address], [place] [address] Mar, [facility] [address] [id number] [address] [place] [address], [place] [address] Mar, [facility] [address] [id number] [address] [place] [address], [place] [address] Mar, [facility] [address] [id number] [address] [place] [address], [place] [address] Feb, [facility] [address] [id number] [address] [place] [address], [place] [address] 30 Feb, 2014 [facility] [address] [id number] [address] [place] [address], [place] [address] 15 Feb, 2014 [facility] [address] [id number] [address] [place] [address], [place] [address] 15 Feb, 2014 [facility] [address] [id number] [address] [place] [address], [place] [address] Feb, [facility] [address] [id number] [address] [place] [address], [place] [address] Feb, [facility] [address] [id number] [address] [place] [address], [place] [address] Feb, [facility] [address] [id number] [address] [place] [address], [place] [address] Feb, [facility] [address] [id number] [facility] [place] [address] Feb, [facility] [address] [id number] [address] [place] [address], [place] [address] Feb, [facility] [address] [id number] [address] [place] [address], [place] [address] Jan, [facility] [address] [id number] [address] [place] [address], [place] [address] Jan, [facility] [address] [id number] [address] [place] [address], [place] [address] Jan, [facility] [address] [id number] [address] [place] [address], [place] [address] Jan, [facility] [address] [id number] [address] [place] [address], [place] [address] Jan, [facility] [address] [id number] [address] [place] [address], [place] [address] Jan, [facility] [address] [id number] [address] [place] [address], [place] [address] Jan, [facility] [address] [id number] [address] [place] [address], [place] [address] Dec, [facility] [address] [id number] [address] [place] [address], [place] [address] Dec, [facility] [address] [id number] [address] [place] [address], [place] [address] Dec, [facility] [address] [id number] [address] [place] [address], [place] [address] Dec, [facility] [address] [id number] [address] [place] [address], [place] [address] Dec, [facility] [address] [id number] [address] [place] [address], [place] [address] Dec, [facility] [address] [id number] [address] [place] [address], [place] [address] Dec, [facility] [address] [id number] [address] [place] [address], [place] [address] Dec, [facility] [address] [id number] [address] [place] [address], [place] [address] Oct, [facility] [address] [id number] [address] [place] [address], [place] [address] Oct, [facility] [address] [id number] [address] [place] [address], [place] [address] September, [facility] [address] [id number] [address] [place] [address], [place] [address] September, [facility] [address] [id number] [address] [place] [address], [place] [address] September, [facility] [address] [id number] [address] [place] [address], [place] [address] September, [facility] [address] [id number] [address] [place] [address], [place] [address] September, [facility] [address] [id number] [address] [place] [address], [place] [address] September, [facility] [address] [id number] [address] [place] [address], [place] [address] September, [facility] [address] [id number] [address] [place] [address], [place] [address] Aug, [facility] [address] [id number] [address] [place] [address], [place] [address] Aug, [facility] [address] [id number] [address] [place] [address], [place] [address] Jul, [facility] [address] [id number] [address] [place] [address], [place] [address] Jul, [facility] [address] [id number] [address] [place] [address], [place] [address] Jul, [facility] [address] [id number] [address] [place] [address], [place] [address] 17 Jul, 2013 [facility] [address] [id number] [address] [place] [address], [place] [address] 14 Jul, 2013 [facility] [address] [id number] [address] [place] [address], [place] [address] 14 Jul, 2013 [facility] [address] [id number] [address] [place] [address], [place] [address] Jul, [facility] [address] [id number] [address] [place] [address], [place] [address] Jul, [facility] [address] [id number] [address] [place] [address], [place] [address] 15 May, 2013 [facility] [address] [id number] [address] [place] [address], [place] [address] May, [facility] [address] [id number] [address] [place] [address], [place] [address] May, [facility] [address] [id number] [address] [place] [address], [place] [address] May, [facility] [address] [id number] [address] [place] [address], [place] [address] 18 Apr, 2013 [facility] [address] [id number] [address] [place] [address], [place] [address] Mar, [facility] [address] [id number] [address] [place] [address], [place] [address] Mar, [facility] [address] [id number] [address] [place] [address], [place] [address] Mar, [facility] [address] [id number] [address] [place] [address], [place] [address] Mar, [facility] [address] [id number] [address] [place] [address], [place] [address] 18 Mar, 2013 [facility] [address] [id number] [address] [place] [address], [place] [address] 18 Mar, 2013 [facility] [address] [id number] [address] [place] [address], [place] [address] 18 Mar, 2013 [facility] [address] [id number] [address] [place] [address], [place] [address] 18 Mar, 2013 [facility] [address] [id number] [address] [place] [address], [place] [address] Mar, [facility] [address] [id number] [address] [place] [address], [place] [address] Mar, [facility] [address] [id number] [address] [place] [address], [place] [address] Mar, [facility] [address] [id number] [address] [place] [address], [place] [address] Mar, [facility] [address] [id number] [address] [place] [address], [place] [address] 15 Feb, 2013 [facility] [address] [id number] [address] [place] [address], [place] [address] 15 Feb, 2013 [facility] [address] [id number] [address] [place] [address], [place] [address] Feb, [facility] [address] [id number] [address] [place] [address], [place] [address] Feb, [facility] [address] [id number] [address] [place] [address], [place] [address] Feb, [facility] [address] [id number] [address] [place] [address], [place] [address] Jan, [facility] [address] [id number] [address] [place] [address], [place] [address] Dec, [facility] [address] [id number] [address] [place] [address], [place] [address] Dec, [facility] [address] [id number] [address] [place] [address], [place] [address] Dec, [facility] [address] [id number] [address] [place] [address], [place] [address] Nov, [facility] [address] [id number] [address] [place] [address], [place] [address] Nov, [facility] [address] [id number] [address] [place] [address], [place] [address] Nov, [facility] [address] [id number] [address] [place] [address], [place] [address] Oct, [facility] [address] [id number] [address] [place] [address], [place] [address] Oct, [facility] [address] [id number] [address] [place] [address], [place] [address] Oct, [facility] [address] [id number] [address] [place] [address], [place] [address] September, [facility] [place] [address] [id number] [address] [place] [address], [place] [address] September, [facility] [place] [address] [id number] [address] [place] [address], [place] [address] September, [facility] [address] [id number] [address] [place] [address], [place] [address] September, [facility] [address] [id number] [address] [place] [address], [place] [address] September, [facility] [address] [id number] [address] [place] [address], [place] [address] Aug, [facility] [address] [id number] [address] [place] [address], [place] [address] Aug, [facility] [address] [id number] [address] [place] [address], [place] [address] Aug, [facility] [address] [id number] [address] [place] [address], [place] [address] Jul, [facility] [address] [id number] [address] [place] [address], [place] [address] Jul, [facility] [address] [id number] [address] [place] [address], [place] [address] Jul, [facility] [address] [id number] [address] [place] [address], [place] [address] Jul, [facility] [address] [id number] [address] [place] [address], [place] [address] Jul, [facility] [address] [id number] [address] [place] [address], [place] [address] Jul, [facility] [address] [id number] [address] [place] [address], [place] [address] Jul, [facility] [address] [id number] [address] [place] [address], [place] [address] May, [facility] [place] [address] [id number] [address] [place] [address], [place] [address] May, [facility] [address] [id number] [address] [place] [address], [place] [address] May, [facility] [place] [address] [id number] [address] [place] [address], [place] [address] Apr, [facility] [address] [id number] [address] [place] [address], [place] [address] Apr, [facility] [place] [address] [id number] [address] [place] [address], [place] [address] Apr, [facility] [address] [id number] [address] [place] [address], [place] [address] Apr, [facility] [address] [id number] [address] [place] [address], [place] [address] Apr, [facility] [address] [id number] [address] [place] [address], [place] [address] Mar, [facility] [address] [id number] [address] [place] [address], [place] [address] Mar, [facility] [address] [id number] [address] [place] [address], [place] [address] 15 Mar, 2012 [facility] [address] [id number] [address] [place] [address], [place] [address] Mar, [facility] [address] [id number] [address] [place] [address], [place] [address] Feb, [facility] [address] [id number] [address] [place] [address], [place] [address] Feb, [facility] [address] [id number] [address] [place] [address], [place] [address] Feb, [facility] [address] [id number] [address] [place] [address], [place] [address] Feb, [facility] [address] [id number] [address] [place] [address], [place] [address] Feb, [facility] [address] [id number] [address] [place] [address], [place] [address] Jan, [facility] [address] [id number] [address] [place] [address], [place] [address] Dec, [facility] [address] [id number] [address] [place] [address], [place] [address] Dec, [facility] [address] [id number] [address] [place] [address], [place] [address] Dec, [facility] [address] [id number] [address] [place] [address], [place] [address] Nov, [facility] [address] [id number] [address] [place] [address], [place] [address] Nov, [facility] [address] [id number] [address] [place] [address], [place] [address] Nov, [facility] [address] [id number] [address] [place] [address], [place] [address] Oct, [facility] [address] [id number] [address] [place] [address], [place] [address] Oct, [facility] [address] [id number] [address] [place] [address], [place] [address] Oct, [facility] [address] [id number] [address] [place] [address], [place] [address] Oct, [facility] [address] [id number] [address] [place] [address], [place] [address] September, [facility] [address] [id number] [address] [place] [address], [place] [address] September, [facility] [address] [id number] [address] [place] [address], [place] [address] Aug, [facility] [address] [id number] [address] [place] [address], [place] [address] Aug, [facility] [address] [id number] [address] [place] [address], [place] [address] Aug, [facility] [address] [id number] [address] [place] [address], [place] [address] Aug, [facility] [address] [id number] [address] [place] [address], [place] [address] Aug, [facility] [address] [id number] [address] [place] [address], [place] [address] Aug, [facility] [address] [id number] [address] [place] [address], [place] [address] Aug, [facility] [address] [id number] [address] [place] [address], [place] [address] Jul, [facility] [address] [id number] [address] [place] [address], [place] [address] Jul, [facility] [address] [id number] [address] [place] [address], [place] [address] Jul, [facility] [address] [id number] [address] [place] [address], [place] [address] May, [facility] [address] [id number] [address] [place] [id number] May, [facility] [address] [id number] [address] [place] [id number] May, [facility] [address] [id number] [address] [place] [id number] Apr, [facility] [address] [id number] [address] [place] [id number] Apr, [facility] [address] [id number] [address] [place] [id number] Mar, [facility] [address] [id number] [address] [place] [id number] Mar, [facility] [address] [id number] [address] [place] [id number] Mar, [facility] [address] [id number] [address] [place] [id number] Mar, [facility] [address] [id number] [address] [place] [id number] Mar, [facility] [address] [id number] [address] [place] [id number] Mar, [facility] [address] [id number] [address] [place] [id number] Feb, [facility] [address] [id number] [address] [place] [id number] Feb, [facility] [id number] [place] [id number] Feb, IMMUNIZATIONS No Known Immunizations SOCIAL HISTORY [...]
--- OUTSIDE RECORDS SUMMARY | 2020-01-03 07:41 | XMS REPORT ---
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 Name Role Phone FERNY SILVERIO Unavailable PROBLEMS Type Condition ICD9-CM Code APF81-MD Code Onset Dates Condition S tatus SNOMED Code Problem Insulin long-term use Z79.4 Active 502837687 Problem Hypertension I10 Active 3290264 3 Problem Diabetes E11.9 Active 33121136 Problem Hypoxia R09.02 Active 415749213 Problem Anxiety F41.9 Active 11649674 Problem Port catheter in place Z95.828 Active 734513640 Problem Pressure ulcer of other site, stage 3 L89.893 Active 272334263 Problem COPD (chronic obstructive pulmonary disease) J44.9 Active 16199206 Problem Type 2 diabetes mellitus wit h diabetic peripheral angiopathy without gangrene E11.51 Active 096269386 Problem Back pain M54.9 Active 304154003 Problem PAD (peripheral artery disease) I73.9 Active 342515642 Problem Lumbar radiculopathy, chronic M54.16 Active 594231997 Problem Recurrent major depressive disorder, in full remission F33.42 Active 545028205 Problem penitentiary current use of insulin Z79.4 Active 500438747 ALLERGIES No Information ENCOUNTERS Encounter Location Date Diagnosis [facility] [address] [id number] [address] [place] [phone] Jan, [facility] [address] [id number] [address] [place] [phone] Jan, Back pain M54.9 [facility] [address] [id number] [address] [place] [phone] Jan, [facility] [address] [id number] [address] [place] [phone] Dec, Acute non-recurrent frontal sinusitis J01.10 [facility] [address] [id number] [address] [place] [phone] Dec, Acute non-recurrent frontal sinusitis J01.10 [facility] [address] [id number] [address] [place] [phone] Dec, Type 2 diabetes mellitus wit h diabetic peripheral angiopathy without gangrene E11.51 ; Lumbar radiculopathy, chronic M54.16 ; Recurrent major depressive disorder, in full remission F33.42 and Anxiety F41.9 [facility] [address] [id number] [address] [place] [phone] Dec, [facility] [address] [id number] [address] [place] [phone] Nov, Anxiety F41.9 [facility] [address] [id number] [address] [place] [phone] Nov, [facility] [address] [id number] [address] [place] [phone] Nov, Back pain M54.9 [facility] [address] [id number] [address] [place] [id number] Nov, [facility] [address] [id number] [address] [place] [phone] Nov, Back pain M54.9 [facility] [address] [id number] [address] [place] [phone] Nov, Anxiety F41.9 [facility] [address] [id number] [address] [place] [phone] Nov, [facility] [address] [id number] [address] [place] [phone] Oct, Back pain M54.9 [facility] [address] [id number] [address] [place] [phone] Oct, [facility] [address] [id number] [address] [place] [phone] Oct, [facility] [address] [id number] [address] [place] [phone] Oct, [facility] [address] [id number] [address] [place] [phone] September, Back pain M54.9 [facility] [address] [id number] [address] [place] [phone] September, [facility] [address] [id number] [address] [place] [phone] September, [facility] [address] [id number] [address] [place] [phone] September, [facility] [address] [id number] [address] [place] [phone] Aug, Back pain M54.9 [facility] [address] [id number] [address] [place] [phone] Aug, Anxiety F41.9 [facility] [address] [id number] [address] [place] [address] Aug, [facility] [address] [id number] [address] [place] [phone] Aug, Pressure ulcer of other site , stage 3 L89.893 and COPD (chronic obstructive pulmonary disease) J44.9 [facility] [address] [id number] [address] [place] [phone] Aug, History of smoking Z87.891 [facility] [address] [id number] [address] [place] [phone] Jul, Type 2 diabetes mellitus wit h diabetic peripheral angiopathy without gangrene E11.51 [facility] [address] [id number] [address] [place] [id number] Jul, Back pain M54.9 [facility] [address] [id number] [address] [place] [phone] Jul, Anxiety F41.9 [facility] [address] [id number] [address] [place] [phone] 18 Jul, 2018 [facility] [address] [id number] [address] [place] [phone] 13 Jul, 2018 Back pain M54.9 [facility] [address] [id number] [address] [place] [phone] Jul, Back pain M54.9 [facility] [address] [id number] [address] [place] [phone] Jul, Lumbar radiculopathy, chroni c M54.16 ; Hypertension I10 and Type 2 diabetes mellitus with diabetic peripheral angiopathy without gangrene E11.51 [facility] [address] [id number] [address] [place] [address] Jul, Back pain M54.9 [facility] [address] [id number] [address] [place] [phone] Jul, Back pain M54.9 and Anxiety F41.9 [facility] [address] [id number] [address] [place] [phone] Jul, [facility] [address] [id number] [address] [place] [phone] May, Back pain M54.9 and Anxiety F41.9 [facility] [address] [id number] [address] [place] [phone] May, [facility] [address] [id number] [address] [place] [phone] Apr, Radiculopathy of lumbar rhiannon on M54.16 ; Back pain M54.9 and Anxiety F41.9 [facility] [address] [id number] [address] [place] [phone] Apr, Diabetes E11.9 ; Muscle spas m M62.838 and Lumbar radiculopathy, chronic M54.16 [facility] [address] [id number] [address] [place] [phone] Apr, [facility] [address] [id number] [address] [place] [id number] Apr, [facility] [address] [id number] [address] [place] [phone] Mar, Back pain M54.9 and Anxiety F41.9 [facility] [address] [id number] [address] [place] [phone] Mar, [facility] [address] [id number] [address] [place] [phone] Mar, [facility] [address] [id number] [address] [place] [phone] Mar, [facility] [address] [id number] [address] [place] [id number] Mar, Encounter for immunization Z 23 [facility] [address] [id number] [address] [place] [phone] Feb, Back pain M54.9 and Anxiety F41.9 [facility] [address] [id number] [address] [place] [phone] 04 Feb, 2018 Back pain M54.9 and Anxiety F41.9 [facility] [address] [id number] [address] [place] [phone] Jan, Back pain M54.9 and Anxiety F41.9 [facility] [address] [id number] [address] [place] [phone] Jan, [facility] [address] [id number] [address] [place] [phone] Dec, [facility] [address] [id number] [address] [place] [phone] Dec, Back pain M54.9 and Anxiety F41.9 [facility] [address] [id number] [address] [place] [phone] Dec, Diabetes E11.9 ; Type 2 diab etes mellitus with diabetic peripheral angiopathy without gangrene E11.51 ; Lumbar radiculopathy, chronic M54.16 ; COPD (chronic obstructive pulmonary disease) J44.9 and Anxiety F41.9 [facility] [address] [id number] [address] [place] [phone] Dec, Back pain M54.9 and Anxiety F41.9 [facility] [address] [id number] [address] [place] [phone] Nov, Back pain M54.9 and Anxiety F41.9 [facility] [address] [id number] [address] [place] [phone] Oct, [facility] [address] [id number] [address] [place] [phone] Oct, Back pain M54.9 and Anxiety F41.9 [facility] [address] [id number] [address] [place] [phone] September, Anxiety F41.9 and Back pain M54.9 [place] [address] [id number] [address] [place] [phone] September, Diabetes E11.9 ; Hypertensio n I10 ; COPD (chronic obstructive pulmonary disease) J44.9 and Lumbar radiculopathy, chronic M54.16 [facility] [facility] [address] [id number] [address] [place] [phone] September, Anxiety F41.9 [facility] [address] [id number] [address] [place] [phone] Aug, [facility] [address] [id number] [address] [place] [phone] Aug, [facility] [address] [id number] [address] [place] [phone] Aug, Anxiety F41.9 and Back pain M54.9 [facility] [address] [id number] [address] [place] [phone] Aug, Medicare annual wellness vis it, initial Z00.00 ; COPD (chronic obstructive pulmonary disease) J44.9 ; PAD (peripheral artery disease) I73.9 ; Insulin long-term use Z79.4 ; Hypertension I10 ; Anxiety F41.9 ; Recurrent major depressive disorder, in full remission F33.42 ; Pressure ulcer of other site, stage 3 L89.893 ; Type 2 diabetes mellitus with diabetic peripheral angiopathy without gangrene E11.51 and 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.4 [facility] [address] [id number] [address] [place] [phone] Jul, Back pain M54.9 [facility] [address] [id number] [address] [place] [phone] Jul, [facility] [facility] [address] [id number] [address] [place] [phone] Jul, Anxiety F41.9 and Back pain M54.9 [facility] [address] [id number] [address] [place] [phone] Jul, Diabetes E11.9 [facility] [address] [id number] [address] [place] [phone] May, [facility] [address] [id number] [address] [place] [phone] May, Diabetes E11.9 ; Anxiety F41 .9 ; Back pain M54.9 and COPD (chronic obstructive pulmonary disease) J44.9 [facility] [address] [id number] [address] [place] [phone] May, Back pain M54.9 [facility] [address] [id number] [address] [place] [phone] May, [facility] [address] [id number] [address] [place] [phone] Apr, Back pain M54.9 [facility] [address] [id number] [address] [place] [phone] 30 Mar, 2017 Back pain M54.9 [facility] [address] [id number] [address] [place] [phone] Mar, [facility] [address] [id number] [address] [place] [phone] 16 Mar, 2017 [facility] [address] [id number] [address] [place] [phone] 14 Mar, 2017 Radiculopathy of lumbar rhiannon on M54.16 [facility] [address] [id number] [address] [place] [phone] 13 Mar, 2017 [facility] [address] [id number] [address] [place] [phone] 07 Mar, 2017 Encounter for immunization Z 23 and Lumbar radiculopathy, chronic M54.16 [facility] [address] [id number] [address] [place] [phone] Mar, Back pain M54.9 and Anxiety F41.9 [facility] [address] [id number] [address] [place] [phone] 10 Feb, 2017 Acute bilateral low back boy n with left-sided sciatica M54.42 and Acute bilateral low back pain with right-sided sciatica M54.41 [facility] [address] [id number] [address] [place] [phone] Feb, [facility] [address] [id number] [address] [place] [phone] Feb, Back pain M54.9 [facility] [address] [id number] [address] [place] [phone] 05 Jan, 2017 Back pain M54.9 and Anxiety F41.9 [facility] [address] [id number] [address] [place] [phone] 05 Jan, 2017 Diabetes E11.9 [facility] [address] [id number] [address] [place] [phone] Dec, Diabetes E11.9 ; Back pain M 54.9 ; Anxiety F41.9 and Insulin long- term use Z79.4 [facility] [address] [id number] [address] [place] [id number] Dec, Anxiety F41.9 [facility] [address] [id number] [address] [place] [phone] Dec, Back pain M54.9 [facility] [address] [id number] [address] [place] [phone] Nov, Back pain M54.9 [facility] [address] [id number] [address] [place] [id number] Oct, Back pain M54.9 and Anxiety F41.9 [facility] [address] [id number] [address] [place] [phone] September, Back pain M54.9 [facility] [address] [id number] [address] [place] [phone] September, Back pain M54.9 and Anxiety F41.9 [facility] [address] [id number] [address] [place] [phone] Aug, Diabetes E11.9 ; Anxiety F41 .9 ; Back pain M54.9 and PAD (peripheral artery disease) I73.9 [facility] [address] [id number] [address] [place] [phone] Aug, Anxiety F41.9 [facility] [address] [id number] [address] [place] [phone] Aug, Back pain M54.9 [facility] [address] [id number] [address] [place] [phone] Jul, Back pain M54.9 [facility] [address] [id number] [address] [place] [phone] Jul, Back pain M54.9 [facility] [address] [id number] [address] [place] [phone] Jul, Back pain M54.9 [facility] [address] [id number] [address] [place] [phone] 16 Jul, 2016 Dorsalgia M54.9 [facility] [address] [id number] [address] [place] [phone] 14 Jul, 2016 [facility] [address] [id number] [address] [place] [phone] May, Back pain M54.9 [facility] [address] [id number] [address] [place] [phone] May, Diabetes E11.9 ; Anxiety F41 .9 ; Port catheter in place Z95.828 ; Encounter for immunization Z23 and Insulin long-term use Z79.4 [facility] [address] [id number] [address] [place] [phone] Apr, Back pain M54.9 [facility] [address] [id number] [address] [place] [phone] Apr, Back pain M54.9 [facility] [address] [id number] [address] [place] [phone] Apr, [facility] [address] [id number] [address] [place] [address] Apr, Back pain M54.9 [facility] [address] [id number] [address] [place] [phone] Mar, COPD (chronic obstructive pu lmonary disease) J44.9 [facility] [address] [id number] [address] [place] [phone] Feb, [facility] [address] [id number] [address] [place] [phone] 30 Jan, 2016 [facility] [address] [id number] [address] [place] [phone] Jan, [facility] [address] [id number] [address] [place] [phone] 07 Jan, 2016 [facility] [address] [id number] [address] [place] [phone] Jan, [facility] [address] [id number] [address] [place] [phone] Dec, Diabetes E11.9 ; Hypoxia R09 .02 and Back pain M54.9 [facility] [address] [id number] [address] [place] [phone] Dec, [facility] [address] [id number] [address] [place] [phone] Nov, [facility] [address] [id number] [address] [place] [phone] Oct, Anxiety F41.9 [facility] [address] [id number] [address] [place] [phone] Oct, Back pain M54.9 [facility] [address] [id number] [address] [place] [phone] September, Back pain M54.9 [facility] [address] [id number] [address] [place] [phone] September, Diabetes E11.9 [facility] [address] [id number] [address] [place] [phone] September, [facility] [address] [id number] [address] [place] [phone] September, Diabetes E11.9 ; Insulin sarai g-term use Z79.4 and Back pain M54.9 [facility] [address] [id number] [address] [place] [phone] Aug, Back pain M54.9 [facility] [address] [id number] [address] [place] [phone] Aug, Back pain M54.9 ; Anxiety F4 1.9 and Arthropathy, unspecified M12.9 [facility] [address] [id number] [address] [place] [phone] Jul, Back pain M54.9 [facility] [address] [id number] [address] [place] [phone] Jul, Anxiety F41.9 [facility] [address] [place] [id number] [address] [place] [phone] Jul, Back pain M54.9 [facility] [address] [place] [id number] [place] [phone] Jul, [facility] [address] [place] [id number] [address] [place] [phone] Jul, [facility] [address] [place] [id number] [place] [phone] May, Back pain M54.9 ; Diabetes E 11.9 ; Insulin long-term use Z79.4 ; COPD (chronic obstructive pulmonary disease) J44.9 and Hypertension I10 [facility] [address] [phone] May, Chronic pain G89.29 [facility] [address] [phone] Apr, [facility] [address] [place] [id number] [place] [id number] Apr, [facility] [address] [phone] Mar, [facility] [address] [id number] Mar, Encounter for immunization Z 23 and Diabetes E11.9 [facility] [address] [place] [id number] [place] [phone] Feb, [facility] [address] [place] [id number] [address] [place] [phone] Feb, [facility] [address] [phone] Jan, [facility] [address] [id number] [address] [place] [phone] Jan, [facility] [address] [id number] [address] [place] [address], [place] [address] Dec, [facility] [address] [id number] [address] [place] [address], [place] [address] Dec, [facility] [address] [id number] [address] [place] [address], [place] [address] Dec, Unspecified arthropathy, sit e unspecified 716.90 and Diabetes mellitus type 2, uncontrolled 250.02 [facility] [address] [id number] [address] [place] [address], [place] [address] Dec, [facility] [address] [id number] [address] [place] [phone] Nov, [facility] [address] [id number] [address] [place] [address], [place] [address] Oct, [facility] [address] [id number] [address] [place] [phone] September, [facility] [address] [id number] [address] [place] [address], [place] [id number] September, [facility] [address] [id number] [address] [place] [phone] September, [facility] [address] [id number] [address] [place] [phone] September, [facility] [address] [id number] [address] [place] [phone] Aug, [facility] [address] [id number] [address] [place] [phone] Aug, [facility] [address] [id number] [address] [place] [id number] Jul, [facility] [address] [id number] [address] [place] [id number] 18 Jul, 2014 [facility] [address] [id number] [facility] [place] [address] 16 Jul, 2014 [facility] [address] [id number] [address] [place] [address], [place] [address] 16 Jul, 2014 [facility] [address] [id number] [address] [place] [address], [place] [id number] 16 Jul, 2014 [facility] [address] [id number] [address] [place] [address], [place] [address] 16 Jul, 2014 [facility] [address] [id number] [address] [place] [address], [place] [address] 16 Jul, 2014 [facility] [address] [id number] [address] [place] [address], [place] [address] 16 Jul, 2014 [facility] [address] [id number] [address] [place] [address], [place] [address] 16 Jul, 2014 [facility] [address] [id number] [address] [place] [address], [place] [id number] 13 Jul, 2014 [facility] [address] [id number] [address] [place] [address], [place] [id number] 13 Jul, 2014 [facility] [address] [id number] [address] [place] [address], [place] [address] 09 Jul, 2014 [facility] [address] [id number] [address] [place] [address], [place] [phone] 09 Jul, 2014 [facility] [address] [id number] [address] [place] [address], [place] [address] 17 Jul, 2014 [facility] [address] [id number] [address] [place] [address], [place] [address] 17 Jul, 2014 [facility] [address] [id number] [address] [place] [address], [place] [address] 16 Jul, 2014 [facility] [address] [id number] [address] [place] [address], [place] [address] 16 Jul, 2014 [facility] [address] [id number] [address] [place] [address], [place] [address] 16 Jul, 2014 [facility] [address] [id number] [address] [place] [address], [place] [address] 16 Jul, 2014 [facility] [address] [id number] [address] [place] [address], [place] [address] 16 Jul, 2014 [facility] [address] [id number] [address] [place] [address], [place] [address] 16 Jul, 2014 [facility] [address] [id number] [address] [place] [address], [place] [address] Jul, 2014 [facility] [address] [id number] [address] [place] [address], [place] [address] Jul, 2014 [facility] [address] [id number] [address] [place] [address], [place] [address] 16 Jul, 2014 [facility] [address] [id number] [address] [place] [address], [place] [address] Jul, 2014 [facility] [address] [id number] [address] [place] [address], [place] [address] Jul, 2014 [facility] [address] [id number] [address] [place] [address], [place] [address] Jul, 2014 [facility] [address] [id number] [address] [place] [address], [place] [address] Jul, 2014 [facility] [address] [id number] [address] [place] [address] Jul, 2014 [facility] [address] [id number] [address] [place] [address], [place] [address] May, [facility] [address] [id number] [address] [place] [address] May, [facility] [address] [id number] [address] [place] [address] May, [facility] [address] [id number] [address] [place] [address] May, [facility] [address] [id number] [address] [place] [address], [place] [address] May, [facility] [address] [id number] [address] [place] [address], [place] [address] May, [facility] [address] [id number] [address] [place] [address], [place] [address] May, [facility] [address] [id number] [address] [place] [address], [place] [address] May, [facility] [address] [id number] [address] [place] [address], [place] [address] May, [facility] [address] [id number] [address] [place] [address], [place] [address] May, [facility] [address] [id number] [address] [place] [address], [place] [address] Apr, [facility] [address] [id number] [address] [place] [address], [place] [address] Apr, [facility] [address] [id number] [address] [place] [address], [place] [address] Apr, [facility] [address] [id number] [address] [place] [address], [place] [address] Apr, [facility] [address] [id number] [address] [place] [address], [place] [address] Apr, [facility] [address] [id number] [address] [place] [address], [place] [address] Apr, [facility] [address] [id number] [address] [place] [address], [place] [address] Mar, [facility] [address] [id number] [address] [place] [address], [place] [address] Mar, [facility] [address] [id number] [address] [place] [address], [place] [address] Mar, [facility] [address] [id number] [address] [place] [address], [place] [address] Mar, [facility] [address] [id number] [address] [place] [address], [place] [address] Mar, [facility] [address] [id number] [address] [place] [address], [place] [address] Mar, [facility] [address] [id number] [address] [place] [address], [place] [address] Mar, [facility] [address] [id number] [address] [place] [address], [place] [address] Mar, [facility] [address] [id number] [address] [place] [address], [place] [address] Mar, [facility] [address] [id number] [address] [place] [address], [place] [address] Mar, [facility] [address] [id number] [address] [place] [address], [place] [address] Mar, [facility] [address] [id number] [address] [place] [address], [place] [address] Feb, [facility] [address] [id number] [address] [place] [address], [place] [address] 30 Feb, 2014 [facility] [address] [id number] [address] [place] [address], [place] [address] 15 Feb, 2014 [facility] [address] [id number] [address] [place] [address], [place] [address] 15 Feb, 2014 [facility] [address] [id number] [address] [place] [address], [place] [address] Feb, [facility] [address] [id number] [address] [place] [address], [place] [address] Feb, [facility] [address] [id number] [address] [place] [address], [place] [address] Feb, [facility] [address] [id number] [address] [place] [address], [place] [address] Feb, [facility] [address] [id number] [facility] [place] [address] Feb, [facility] [address] [id number] [address] [place] [address], [place] [address] Feb, [facility] [address] [id number] [address] [place] [address], [place] [address] Jan, [facility] [address] [id number] [address] [place] [address], [place] [address] Jan, [facility] [address] [id number] [address] [place] [address], [place] [address] Jan, [facility] [address] [id number] [address] [place] [address], [place] [address] Jan, [facility] [address] [id number] [address] [place] [address], [place] [address] Jan, [facility] [address] [id number] [address] [place] [address], [place] [address] Jan, [facility] [address] [id number] [address] [place] [address], [place] [address] Jan, [facility] [address] [id number] [address] [place] [address], [place] [address] Dec, [facility] [address] [id number] [address] [place] [address], [place] [address] Dec, [facility] [address] [id number] [address] [place] [address], [place] [address] Dec, [facility] [address] [id number] [address] [place] [address], [place] [address] Dec, [facility] [address] [id number] [address] [place] [address], [place] [address] Dec, [facility] [address] [id number] [address] [place] [address], [place] [address] Dec, [facility] [address] [id number] [address] [place] [address], [place] [address] Dec, [facility] [address] [id number] [address] [place] [address], [place] [address] Dec, [facility] [address] [id number] [address] [place] [address], [place] [address] Oct, [facility] [address] [id number] [address] [place] [address], [place] [address] Oct, [facility] [address] [id number] [address] [place] [address], [place] [address] September, [facility] [address] [id number] [address] [place] [address], [place] [address] September, [facility] [address] [id number] [address] [place] [address], [place] [address] September, [facility] [address] [id number] [address] [place] [address], [place] [address] September, [facility] [address] [id number] [address] [place] [address], [place] [address] September, [facility] [address] [id number] [address] [place] [address], [place] [address] September, [facility] [address] [id number] [address] [place] [address], [place] [address] September, [facility] [address] [id number] [address] [place] [address], [place] [address] Aug, [facility] [address] [id number] [address] [place] [address], [place] [address] Aug, [facility] [address] [id number] [address] [place] [address], [place] [address] Jul, [facility] [address] [id number] [address] [place] [address], [place] [address] Jul, [facility] [address] [id number] [address] [place] [address], [place] [address] Jul, [facility] [address] [id number] [address] [place] [address], [place] [address] 17 Jul, 2013 [facility] [address] [id number] [address] [place] [address], [place] [address] 14 Jul, 2013 [facility] [address] [id number] [address] [place] [address], [place] [address] 14 Jul, 2013 [facility] [address] [id number] [address] [place] [address], [place] [address] Jul, [facility] [address] [id number] [address] [place] [address], [place] [address] Jul, [facility] [address] [id number] [address] [place] [address], [place] [address] 15 May, 2013 [facility] [address] [id number] [address] [place] [address], [place] [address] May, [facility] [address] [id number] [address] [place] [address], [place] [address] May, [facility] [address] [id number] [address] [place] [address], [place] [address] May, [facility] [address] [id number] [address] [place] [address], [place] [address] 18 Apr, 2013 [facility] [address] [id number] [address] [place] [address], [place] [address] Mar, [facility] [address] [id number] [address] [place] [address], [place] [address] Mar, [facility] [address] [id number] [address] [place] [address], [place] [address] Mar, [facility] [address] [id number] [address] [place] [address], [place] [address] Mar, [facility] [address] [id number] [address] [place] [address], [place] [address] 18 Mar, 2013 [facility] [address] [id number] [address] [place] [address], [place] [address] 18 Mar, 2013 [facility] [address] [id number] [address] [place] [address], [place] [address] 18 Mar, 2013 [facility] [address] [id number] [address] [place] [address], [place] [address] 18 Mar, 2013 [facility] [address] [id number] [address] [place] [address], [place] [address] Mar, [facility] [address] [id number] [address] [place] [address], [place] [address] Mar, [facility] [address] [id number] [address] [place] [address], [place] [address] Mar, [facility] [address] [id number] [address] [place] [address], [place] [address] Mar, [facility] [address] [id number] [address] [place] [address], [place] [address] 15 Feb, 2013 [facility] [address] [id number] [address] [place] [address], [place] [address] 15 Feb, 2013 [facility] [address] [id number] [address] [place] [address], [place] [address] Feb, [facility] [address] [id number] [address] [place] [address], [place] [address] Feb, [facility] [address] [id number] [address] [place] [address], [place] [address] Feb, [facility] [address] [id number] [address] [place] [address], [place] [address] Jan, [facility] [address] [id number] [address] [place] [address], [place] [address] Dec, [facility] [address] [id number] [address] [place] [address], [place] [address] Dec, [facility] [address] [id number] [address] [place] [address], [place] [address] Dec, [facility] [address] [id number] [address] [place] [address], [place] [address] Nov, [facility] [address] [id number] [address] [place] [address], [place] [address] Nov, [facility] [address] [id number] [address] [place] [address], [place] [address] Nov, [facility] [address] [id number] [address] [place] [address], [place] [address] Oct, [facility] [address] [id number] [address] [place] [address], [place] [address] Oct, [facility] [address] [id number] [address] [place] [address], [place] [address] Oct, [facility] [address] [id number] [address] [place] [address], [place] [address] September, [facility] [address] [id number] [address] [place] [address], [place] [address] September, [facility] [address] [id number] [address] [place] [address], [place] [address] September, [facility] [address] [id number] [address] [place] [address], [place] [address] September, [facility] [address] [id number] [address] [place] [address], [place] [address] September, [facility] [address] [id number] [address] [place] [address], [place] [address] Aug, [facility] [address] [id number] [address] [place] [address], [place] [address] Aug, [facility] [address] [id number] [address] [place] [address], [place] [address] Aug, [facility] [address] [id number] [address] [place] [address], [place] [address] Jul, [facility] [address] [id number] [address] [place] [address], [place] [address] Jul, [facility] [address] [id number] [address] [place] [address], [place] [address] Jul, [facility] [address] [id number] [address] [place] [address], [place] [address] Jul, [facility] [address] [id number] [address] [place] [address], [place] [address] Jul, [facility] [address] [id number] [address] [place] [address], [place] [address] Jul, [facility] [address] [id number] [address] [place] [address], [place] [address] Jul, [facility] [address] [id number] [address] [place] [address], [place] [address] May, [facility] [address] [id number] [address] [place] [address], [place] [address] May, [facility] [address] [id number] [address] [place] [address], [place] [address] May, [facility] [address] [id number] [address] [place] [address], [place] [address] Apr, [facility] [address] [id number] [address] [place] [address], [place] [address] Apr, [facility] [address] [id number] [address] [place] [address], [place] [address] Apr, [facility] [address] [id number] [address] [place] [address], [place] [address] Apr, [facility] [address] [id number] [address] [place] [address], [place] [address] Apr, [facility] [address] [id number] [address] [place] [address], [place] [address] Mar, [facility] [address] [id number] [address] [place] [address], [place] [address] Mar, [facility] [address] [id number] [address] [place] [address], [place] [address] 15 Mar, 2012 [facility] [address] [id number] [address] [place] [address], [place] [address] Mar, [facility] [address] [id number] [address] [place] [address], [place] [address] Feb, [facility] [address] [id number] [address] [place] [address], [place] [address] Feb, [facility] [address] [id number] [address] [place] [address], [place] [address] Feb, [facility] [address] [id number] [address] [place] [address], [place] [address] Feb, [facility] [address] [id number] [address] [place] [address], [place] [address] Feb, [facility] [address] [id number] [address] [place] [address], [place] [address] Jan, [facility] [address] [id number] [address] [place] [address], [place] [address] Dec, [facility] [address] [id number] [address] [place] [address], [place] [address] Dec, [facility] [address] [id number] [address] [place] [address], [place] [address] Dec, [facility] [address] [id number] [address] [place] [address], [place] [address] Nov, [facility] [address] [id number] [address] [place] [address], [place] [address] Nov, [facility] [address] [id number] [address] [place] [address], [place] [address] Nov, [facility] [address] [id number] [address] [place] [address], [place] [address] Oct, [facility] [address] [id number] [address] [place] [address], [place] [address] Oct, [facility] [address] [id number] [address] [place] [address], [place] [address] Oct, [facility] [address] [id number] [address] [place] [address], [place] [address] Oct, [facility] [address] [id number] [address] [place] [address], [place] [address] September, [facility] [address] [id number] [address] [place] [address], [place] [address] September, [facility] [address] [id number] [address] [place] [address], [place] [address] Aug, [facility] [address] [id number] [address] [place] [address], [place] [address] Aug, [facility] [address] [id number] [address] [place] [address], [place] [address] Aug, [facility] [address] [id number] [address] [place] [address], [place] [address] Aug, [facility] [address] [id number] [address] [place] [address], [place] [address] Aug, [facility] [address] [id number] [address] [place] [address], [place] [address] Aug, [facility] [address] [id number] [address] [place] [address], [place] [address] Aug, [facility] [address] [id number] [address] [place] [address], [place] [address] Jul, [facility] [address] [id number] [address] [place] [address], [place] [address] Jul, [facility] [address] [id number] [address] [place] [address], [place] [address] Jul, [facility] [address] [id number] [address] [place] [address], [place] [address] May, [facility] [address] [id number] [address] [place] [id number] May, [facility] [address] [id number] [address] [place] [id number] May, [facility] [address] [id number] [address] [place] [id number] Apr, [facility] [address] [id number] [address] [place] [id number] Apr, [facility] [address] [id number] [address] [place] [id number] Mar, [facility] [address] [id number] [address] [place] [id number] Mar, [facility] [address] [id number] [address] [place] [phone] Mar, [facility] [address] [id number] [address] [place] [id number] Mar, [facility] [address] [id number] [address] [place] [id number] Mar, [facility] [address] [id number] [address] [place] [id number] Mar, [facility] [address] [id number] [address] [place] [id number] Feb, [facility] [address] [id number] [address] [place] [id number] Feb, [facility] [address] [id number] [address] [place] [id number] Feb, IMMUNIZATIONS No Known Immunizations SOCIAL HISTORY [...]
--- OUTSIDE RECORDS SUMMARY | 2020-01-03 07:42 | XMS REPORT ---
Author Author Tra SILVERIO Organization [facility] Address [address] [place] [address] Care Team Providers Care Data Entry Representative Name Role Phone FERNY SILVERIO Unavailable PROBLEMS Type Condition ICD9-CM Code JQA42-QL Code Onset Dates Condition S tatus SNOMED Code Problem Insulin long-term use Z79.4 Active 241717790 Problem Hypertension I10 Active 5443219 3 Problem Diabetes E11.9 Active 42204132 Problem Hypoxia R09.02 Active 956579480 Problem Anxiety F41.9 Active 79551462 Problem Port catheter in place Z95.828 Active 226690726 Problem Pressure ulcer of other site, stage 3 L89.893 Active 830028214 Problem COPD (chronic obstructive pulmonary disease) J44.9 Active 98535258 Problem Type 2 diabetes mellitus wit h diabetic peripheral angiopathy without gangrene E11.51 Active 055045018 Problem Back pain M54.9 Active 279900465 Problem PAD (peripheral artery disease) I73.9 Active 950444466 Problem Lumbar radiculopathy, chronic M54.16 Active 122558336 Problem Recurrent major depressive disorder, in full remission F33.42 Active 368084234 Problem detention current use of insulin Z79.4 Active 816032412 ALLERGIES No Information ENCOUNTERS Encounter Location Date Diagnosis [facility] [address] [facility] [id number] [address] [place] [id number] Jan, [facility] [address] [facility] [id number] [address] [place] [id number] Jan, Back pain M54.9 [facility] [address] [facility] [id number] [address] [place] [id number] Jan, [facility] [address] [facility] [id number] [address] [place] [id number] Dec, Acute non-recurrent frontal sinusitis J01.10 [facility] [address] [id number] [address] [place] [id number] Dec, Acute non-recurrent frontal sinusitis J01.10 [facility] [address] [id number] [address] [place] [id number] Dec, Type 2 diabetes mellitus wit h diabetic peripheral angiopathy without gangrene E11.51 ; Lumbar radiculopathy, chronic M54.16 ; Recurrent major depressive disorder, in full remission F33.[address] [facility] [address] [id number] [address] [place] [phone] Dec, [facility] [address] [id number] [address] [place] [phone] Nov, Anxiety F41.9 [facility] [address] [id number] [address] [place] [id number] Nov, [facility] [address] [id number] [address] [place] [phone] Nov, Back pain M54.9 [facility] [address] [id number] [address] [place] [phone] Nov, [facility] [address] [id number] [address] [place] [id number] Nov, Back pain M54.9 [facility] [address] [id number] [address] [place] [id number] Nov, Anxiety F41.9 [facility] [address] [id number] [address] [place] [id number] Nov, [facility] [address] [id number] [address] [place] [phone] Oct, Back pain M54.9 [facility] [address] [id number] [address] [place] [phone] Oct, [facility] [address] [id number] [address] [place] [id number] Oct, [facility] [address] [id number] [address] [place] [id number] Oct, [facility] [address] [id number] [address] [place] [phone] September, Back pain M54.9 [facility] [address] [id number] [address] [place] [id number] September, [facility] [address] [id number] [address] [place] [phone] September, [facility] [address] [id number] [address] [place] [phone] September, [facility] [address] [id number] [address] [place] [id number] Aug, Back pain M54.9 [facility] [address] [id number] [address] [place] [id number] Aug, Anxiety F41.9 [facility] [address] [id number] [address] [place] [id number] Aug, [facility] [address] [id number] [address] [place] [id number] Aug, Pressure ulcer of other site , stage 3 L89.893 and COPD (chronic obstructive pulmonary disease) J44.9 [facility] [address] [facility] [id number] [address] [place] [address] Aug, History of smoking Z87.891 [facility] [address] [id number] [address] [place] [id number] Jul, Type 2 diabetes mellitus wit h diabetic peripheral angiopathy without gangrene E11.51 [facility] [address] [id number] [address] [place] [id number] Jul, Back pain M54.9 [facility] [address] [facility] [id number] [address] [place] [phone] Jul, Anxiety F41.9 [facility] [address] [id number] [address] [place] [id number] 18 Jul, 2018 [facility] [address] [id number] [address] [place] [id number] 13 Jul, [address] [facility] [address] [id number] [address] [place] [phone] Jul, Back pain M54.9 [facility] [address] [id number] [address] [place] [id number] Jul, Lumbar radiculopathy, chroni c M54.16 ; Hypertension I10 and Type 2 diabetes mellitus with diabetic peripheral angiopathy without gangrene E11.51 [facility] [address] [id number] [address] [place] [id number] Jul, Back pain M54.9 [facility] [address] [id number] [address] [place] [id number] Jul, Back pain M54.[address] [facility] [address] [id number] [address] [place] [id number] Jul, [facility] [address] [id number] [address] [place] [id number] May, Back pain M54.[address] [facility] [address] [id number] [address] [place] [id number] May, [facility] [address] [id number] [address] [place] [phone] Apr, Radiculopathy of lumbar rhiannon on M54.16 ; Back pain M54.[address] [facility] [address] [id number] [address] [place] [id number] Apr, Diabetes E11.9 ; Muscle spas m M62.838 and Lumbar radiculopathy, chronic M54.16 [facility] [address] [id number] [address] [place] [phone] Apr, [facility] [address] [id number] [address] [place] [id number] Apr, [facility] [address] [facility] [id number] [address] [place] [id number] Mar, Back pain M54.[address] [facility] [address] [id number] [address] [place] [phone] Mar, [facility] [address] [id number] [address] [place] [phone] Mar, [facility] [address] [facility] [id number] [address] [place] [id number] Mar, [facility] [address] [facility] [id number] [address] [place] [id number] Mar, Encounter for immunization Z 23 [facility] [address] [facility] [id number] [address] [place] [id number] Feb, Back pain M54.[address] [facility] [address] [facility] [id number] [address] [place] [id number] 04 Feb, 2018 Back pain M54.[address] [facility] [address] [facility] [id number] [address] [place] [id number] Jan, Back pain M54.[address] [facility] [address] [facility] [id number] [address] [place] [phone] Jan, [facility] [address] [id number] [place] [phone] Dec, [facility] [address] [facility] [id number] [address] [place] [phone] Dec, Back pain M54.[address] [facility] [address] [facility] [id number] [address] [place] [id number] Dec, Diabetes E11.9 ; Type 2 diab etes mellitus with diabetic peripheral angiopathy without gangrene E11.51 ; Lumbar radiculopathy, chronic M54.16 ; COPD (chronic obstructive pulmonary disease) J44.[address] [facility] [address] [id number] [address] [place] [id number] Dec, Back pain M54.[address] [facility] [address] [id number] [address] [place] [id number] Nov, Back pain M54.9 and Anxiety F41.9 [place] [address] [id number] [address] [place] [id number] Oct, [place] [address] [id number] [address] [place] [phone] Oct, Back pain M54.9 and Anxiety F41.9 [place] [address] [id number] [address] [place] [id number] September, Anxiety F41.9 and Back pain M54.9 [place] [address] [id number] [address] [place] [id number] September, Diabetes E11.9 ; Hypertensio n I10 ; COPD (chronic obstructive pulmonary disease) J44.9 and Lumbar radiculopathy, chronic M54.16 [place] [address] [id number] [address] [place] [id number] September, Anxiety F41.9 [facility] [address] [id number] [address] [place] [id number] Aug, [facility] [address] [id number] [address] [place] [phone] Aug, [facility] [address] [id number] [address] [place] [id number] Aug, Anxiety F41.9 and Back pain M54.9 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 [address] [id number] [address] [place] [id number] Jul, Back pain M54.9 [facility] [address] [id number] [address] [place] [phone] Jul, [place] [address] [facility] [id number] [address] [place] [phone] Jul, Anxiety F41.9 and Back pain M54.9 [facility] [address] [id number] [address] [place] [phone] Jul, Diabetes E11.9 [facility] [address] [id number] [address] [place] [phone] May, [facility] [address] [id number] [address] [place] [id number] May, Diabetes E11.9 ; Anxiety F41 .9 ; Back pain M54.9 and COPD (chronic obstructive pulmonary disease) J44.9 [facility] [address] [id number] [address] [place] [id number] May, Back pain M54.9 [facility] [address] [id number] [address] [place] [id number] May, [facility] [address] [id number] [address] [place] [phone] Apr, Back pain M54.9 [facility] [address] [id number] [address] [place] [id number] 30 Mar, [address] [facility] [address] [id number] [address] [place] [phone] Mar, [facility] [address] [id number] [address] [place] [phone] 16 Mar, 2017 [facility] [address] [id number] [address] [place] [id number] 14 Mar, 2017 Radiculopathy of lumbar rhiannon on M54.16 [facility] [address] [id number] [address] [place] [id number] 13 Mar, 2017 [facility] [address] [facility] [id number] [address] [place] [id number] 07 Mar, 2017 Encounter for immunization Z 23 and Lumbar radiculopathy, chronic M54.16 [facility] [address] [id number] [address] [place] [id number] Mar, Back pain M54.9 and Anxiety F41.9 [facility] [address] [id number] [address] [place] [id number] 10 Feb, 2017 Acute bilateral low back boy n with left-sided sciatica M54.42 and Acute bilateral low back pain with right-sided sciatica M54.41 [facility] [address] [id number] [address] [place] [phone] Feb, [facility] [address] [id number] [address] [place] [id number] Feb, Back pain M54.9 [facility] [address] [id number] [address] [place] [phone] 05 Jan, 2017 Back pain M54.[address] [facility] [address] [facility] [id number] [address] [place] [id number] 05 Jan, [address] [facility] [address] [facility] [id number] [address] [place] [id number] Dec, Diabetes E11.9 ; Back pain M 54.9 ; Anxiety F41.9 and Insulin long- term use Z79.4 [facility] [address] [id number] [address] [place] [id number] Dec, Anxiety F41.9 [facility] [address] [id number] [address] [place] [id number] Dec, Back pain M54.9 [facility] [address] [id number] [address] [place] [id number] Nov, Back pain M54.9 [facility] [address] [id number] [address] [place] [id number] Oct, Back pain M54.[address] [facility] [address] [id number] [address] [place] [id number] September, Back pain M54.9 [facility] [address] [id number] [address] [place] [id number] September, Back pain M54.[address] [facility] [address] [id number] [address] [place] [id number] Aug, Diabetes E11.9 ; Anxiety F41 .9 ; Back pain M54.9 and PAD (peripheral artery disease) I73.9 [facility] [address] [id number] [address] [place] [phone] Aug, Anxiety F41.9 [facility] [address] [id number] [address] [place] [id number] Aug, Back pain M54.9 [facility] [address] [id number] [address] [place] [id number] Jul, Back pain M54.9 [facility] [address] [id number] [address] [place] [id number] Jul, Back pain M54.9 [facility] [address] [id number] [address] [place] [id number] Jul, Back pain M54.9 [facility] [address] [id number] [address] [place] [id number] 16 Jul, [address] [facility] [address] [id number] [address] [place] [id number] 14 Jul, 2016 [facility] [address] [id number] [address] [place] [id number] May, Back pain M54.9 [facility] [address] [id number] [address] [place] [id number] May, Diabetes E11.9 ; Anxiety F41 .9 ; Port catheter in place Z95.828 ; Encounter for immunization Z23 and Insulin long-term use Z79.4 [facility] [address] [id number] [address] [place] [phone] Apr, Back pain M54.9 [facility] [address] [id number] [address] [place] [id number] Apr, Back pain M54.9 [facility] [address] [id number] [address] [place] [phone] Apr, [facility] [address] [id number] [address] [place] [phone] Apr, Back pain M54.9 [facility] [address] [id number] [address] [place] [phone] Mar, COPD (chronic obstructive pu lmonary disease) J44.9 [facility] [address] [id number] [address] [place] [phone] Feb, [facility] [address] [id number] [address] [place] [phone] [address] Jan, 2016 [facility] [address] [id number] [address] [place] [phone] Jan, [facility] [address] [id number] [address] [place] [id number] 07 Jan, 2016 [facility] [address] [id number] [address] [place] [phone] Jan, [facility] [address] [id number] [address] [place] [id number] Dec, Diabetes E11.9 ; Hypoxia R09 .02 and Back pain M54.9 [facility] [address] [id number] [address] [place] [id number] Dec, [facility] [address] [id number] [address] [place] [phone] Nov, [facility] [address] [id number] [address] [place] [phone] Oct, Anxiety F41.9 [facility] [address] [id number] [address] [place] [id number] Oct, Back pain M54.9 [facility] [address] [id number] [address] [place] [id number] September, Back pain M54.9 [facility] [address] [id number] [address] [place] [id number] September, Diabetes E11.9 [facility] [address] [id number] [address] [place] [id number] September, [facility] [address] [id number] [address] [place] [id number] September, Diabetes E11.9 ; Insulin sarai g-term use Z79.4 and Back pain M54.9 [facility] [address] [id number] [address] [place] [id number] Aug, Back pain M54.9 [facility] [address] [facility] [id number] [address] [place] [phone] Aug, Back pain M54.9 ; Anxiety F4 1.9 and Arthropathy, unspecified M12.9 [facility] [address] [id number] [address] [place] [id number] Jul, Back pain M54.9 [facility] [address] [facility] [id number] [address] [place] [id number] Jul, Anxiety F41.9 [facility] [address] [place] [id number] [address] [place] [phone] Jul, Back pain M54.9 [facility] [address] [place] [id number] [place] [id number] Jul, [facility] [address] [place] [id number] [address] [place] [id number] Jul, [facility] [address] [place] [id number] [place] [address] May, Back pain M54.9 ; Diabetes E 11.9 ; Insulin long-term use Z79.4 ; COPD (chronic obstructive pulmonary disease) J44.[address] [facility] [address] [id number] May, Chronic pain G89.29 [facility] [address] [id number] Apr, [facility] [address] [place] [id number] [place] [id number] Apr, [facility] [address] [id number] Mar, [facility] [address] [id number] Mar, Encounter for immunization Z [address] [facility] [address] [place] [id number] [place] [phone] Feb, [facility] [address] [place] [id number] [address] [place] [phone] Feb, [facility] [address] [id number] Jan, [facility] [address] [id number] [address] [place] [phone] Jan, [facility] [address] [id number] [address] [place] [address], [place] [address] Dec, [facility] [address] [id number] [address] [place] [address], [place] [address] Dec, [facility] [address] [id number] [address] [place] [address], [place] [address] Dec, Unspecified arthropathy, sit e unspecified 716.90 and Diabetes mellitus type 2, uncontrolled 250.02 [facility] [address] [id number] [address] [place] [address], [place] [address] Dec, [facility] [address] [id number] [address] [place] [phone] Nov, [facility] [address] [id number] [address] [place] [address], [place] [address] Oct, [facility] [address] [id number] [address] [place] [phone] September, [facility] [address] [id number] [address] [place] [address], [place] [address] September, [facility] [address] [id number] [address] [place] [phone] September, [facility] [address] [id number] [address] [place] [id number] September, [facility] [address] [id number] [address] [place] [id number] Aug, [facility] [address] [id number] [address] [place] [id number] Aug, [facility] [address] [id number] [address] [place] [id number] Jul, [facility] [address] [id number] [address] [place] [id number] 18 Jul, 2014 [facility] [address] [id number] [facility] [place] [address] 16 Jul, 2014 [facility] [address] [id number] [address] [place] [address], [place] [address] 16 Jul, 2014 [facility] [address] [id number] [address] [place] [address], [place] [address] 16 Jul, 2014 [facility] [address] [id number] [address] [place] [address], [place] [address] 16 Jul, 2014 [facility] [address] [id number] [address] [place] [address], [place] [address] 16 Jul, 2014 [facility] [address] [id number] [address] [place] [address], [place] [address] 16 Jul, 2014 [facility] [address] [id number] [address] [place] [address], [place] [address] 16 Jul, 2014 [facility] [address] [id number] [address] [place] [address], [place] [address] 13 Jul, 2014 [facility] [address] [id number] [address] [place] [address], [place] [address] 13 Jul, 2014 [facility] [address] [id number] [address] [place] [address], [place] [address] 09 Jul, 2014 [facility] [address] [id number] [address] [place] [address], [place] [address] 09 Jul, 2014 [facility] [address] [id number] [address] [place] [address], [place] [address] 17 Jul, 2014 [facility] [address] [id number] [address] [place] [address], [place] [address] 17 Jul, 2014 [facility] [address] [id number] [address] [place] [address], [place] [address] 16 Jul, 2014 [facility] [address] [id number] [address] [place] [address], [place] [address] 16 Jul, 2014 [facility] [address] [id number] [address] [place] [address], [place] [address] 16 Jul, 2014 [facility] [address] [id number] [address] [place] [address], [place] [address] 16 Jul, 2014 [facility] [address] [id number] [address] [place] [address], [place] [address] 16 Jul, 2014 [facility] [address] [id number] [address] [place] [address], [place] [address] 16 Jul, 2014 [facility] [address] [id number] [address] [place] [address], [place] [address] Jul, 2014 [facility] [address] [id number] [address] [place] [address], [place] [address] Jul, 2014 [facility] [address] [id number] [address] [place] [address], [place] [address] 16 Jul, 2014 [facility] [address] [id number] [address] [place] [address], [place] [address] Jul, 2014 [facility] [address] [id number] [address] [place] [address], [place] [address] Jul, 2014 [facility] [address] [id number] [address] [place] [address], [place] [address] Jul, 2014 [facility] [address] [id number] [address] [place] [address], [place] [address] Jul, 2014 [facility] [address] [id number] [address] [place] [address] Jul, 2014 [facility] [address] [id number] [address] [place] [address], [place] [address] May, [facility] [address] [id number] [address] [place] [address] May, [facility] [address] [id number] [address] [place] [address] May, [facility] [address] [id number] [address] [place] [address] May, [facility] [address] [id number] [address] [place] [address], [place] [address] May, [facility] [address] [id number] [address] [place] [address], [place] [address] May, [facility] [address] [id number] [address] [place] [address], [place] [address] May, [facility] [address] [id number] [address] [place] [address], [place] [address] May, [facility] [address] [id number] [address] [place] [address], [place] [address] May, [facility] [address] [id number] [address] [place] [address], [place] [address] May, [facility] [address] [id number] [address] [place] [address], [place] [address] Apr, [facility] [address] [id number] [address] [place] [address], [place] [address] Apr, [facility] [address] [id number] [address] [place] [address], [place] [address] Apr, [facility] [address] [id number] [address] [place] [address], [place] [address] Apr, [facility] [address] [id number] [address] [place] [address], [place] [address] Apr, [facility] [address] [id number] [address] [place] [address], [place] [address] Apr, [facility] [address] [id number] [address] [place] [address], [place] [address] Mar, [facility] [address] [id number] [address] [place] [address], [place] [address] Mar, [facility] [address] [id number] [address] [place] [address], [place] [address] Mar, [facility] [address] [id number] [address] [place] [address], [place] [address] Mar, [facility] [address] [id number] [address] [place] [address], [place] [address] Mar, [facility] [address] [id number] [address] [place] [address], [place] [address] Mar, [facility] [address] [id number] [address] [place] [address], [place] [address] Mar, [facility] [address] [id number] [address] [place] [address], [place] [address] Mar, [facility] [address] [id number] [address] [place] [address], [place] [address] Mar, [facility] [address] [id number] [address] [place] [address], [place] [address] Mar, [facility] [address] [id number] [address] [place] [address], [place] [address] Mar, [facility] [address] [id number] [address] [place] [address], [place] [address] Feb, [facility] [address] [id number] [address] [place] [address], [place] [address] 30 Feb, 2014 [facility] [address] [id number] [address] [place] [address], [place] [address] 15 Feb, 2014 [facility] [address] [id number] [address] [place] [address], [place] [address] 15 Feb, 2014 [facility] [address] [id number] [address] [place] [address], [place] [address] Feb, [facility] [address] [id number] [address] [place] [address], [place] [address] Feb, [facility] [address] [id number] [address] [place] [address], [place] [address] Feb, [facility] [address] [id number] [address] [place] [address], [place] [address] Feb, [facility] [address] [id number] [facility] [place] [address] Feb, [facility] [address] [id number] [address] [place] [address], [place] [address] Feb, [facility] [address] [id number] [address] [place] [address], [place] [address] Jan, [facility] [address] [id number] [address] [place] [address], [place] [address] Jan, [facility] [address] [id number] [address] [place] [address], [place] [address] Jan, [facility] [address] [id number] [address] [place] [address], [place] [address] Jan, [facility] [address] [id number] [address] [place] [address], [place] [address] Jan, [facility] [address] [id number] [address] [place] [address], [place] [address] Jan, [facility] [address] [id number] [address] [place] [address], [place] [address] Jan, [facility] [address] [id number] [address] [place] [address], [place] [address] Dec, [facility] [address] [id number] [address] [place] [address], [place] [address] Dec, [facility] [address] [id number] [address] [place] [address], [place] [address] Dec, [facility] [address] [id number] [address] [place] [address], [place] [address] Dec, [facility] [address] [id number] [address] [place] [address], [place] [address] Dec, [facility] [address] [id number] [address] [place] [address], [place] [address] Dec, [facility] [address] [id number] [address] [place] [address], [place] [address] Dec, [facility] [address] [id number] [address] [place] [address], [place] [address] Dec, [facility] [address] [id number] [address] [place] [address], [place] [address] Oct, [facility] [address] [id number] [address] [place] [address], [place] [address] Oct, [facility] [address] [id number] [address] [place] [address], [place] [address] September, [facility] [address] [id number] [address] [place] [address], [place] [address] September, [facility] [address] [id number] [address] [place] [address], [place] [address] September, [facility] [address] [id number] [address] [place] [address], [place] [address] September, [facility] [address] [id number] [address] [place] [address], [place] [address] September, [facility] [address] [id number] [address] [place] [address], [place] [address] September, [facility] [address] [id number] [address] [place] [address], [place] [address] September, [facility] [address] [id number] [address] [place] [address], [place] [address] Aug, [facility] [address] [id number] [address] [place] [address], [place] [address] Aug, [facility] [address] [id number] [address] [place] [address], [place] [address] Jul, [facility] [address] [id number] [address] [place] [address], [place] [address] Jul, [facility] [address] [id number] [address] [place] [address], [place] [address] Jul, [facility] [address] [id number] [address] [place] [address], [place] [address] 17 Jul, 2013 [facility] [address] [id number] [address] [place] [address], [place] [address] 14 Jul, 2013 [facility] [address] [id number] [address] [place] [address], [place] [address] 14 Jul, 2013 [facility] [address] [id number] [address] [place] [address], [place] [address] Jul, [facility] [address] [id number] [address] [place] [address], [place] [address] Jul, [facility] [address] [id number] [address] [place] [address], [place] [address] 15 May, 2013 [facility] [address] [id number] [address] [place] [address], [place] [address] May, [facility] [address] [id number] [address] [place] [address], [place] [address] May, [facility] [address] [id number] [address] [place] [address], [place] [address] May, [facility] [address] [id number] [address] [place] [address], [place] [address] 18 Apr, 2013 [facility] [address] [id number] [address] [place] [address], [place] [address] Mar, [facility] [address] [id number] [address] [place] [address], [place] [address] Mar, [facility] [address] [id number] [address] [place] [address], [place] [address] Mar, [facility] [address] [id number] [address] [place] [address], [place] [address] Mar, [facility] [address] [id number] [address] [place] [address], [place] [address] 18 Mar, 2013 [facility] [address] [id number] [address] [place] [address], [place] [address] 18 Mar, 2013 [facility] [address] [id number] [address] [place] [address], [place] [address] 18 Mar, 2013 [facility] [address] [id number] [address] [place] [address], [place] [address] 18 Mar, 2013 [facility] [address] [id number] [address] [place] [address], [place] [address] Mar, [facility] [address] [id number] [address] [place] [address], [place] [address] Mar, [facility] [address] [id number] [address] [place] [address], [place] [address] Mar, [facility] [address] [id number] [address] [place] [address], [place] [address] Mar, [facility] [address] [id number] [address] [place] [address], [place] [address] 15 Feb, 2013 [facility] [address] [id number] [address] [place] [address], [place] [address] 15 Feb, 2013 [facility] [address] [id number] [address] [place] [address], [place] [address] Feb, [facility] [address] [id number] [address] [place] [address], [place] [address] Feb, [facility] [address] [id number] [address] [place] [address], [place] [address] Feb, [facility] [address] [id number] [address] [place] [address], [place] [address] Jan, [facility] [address] [id number] [address] [place] [address], [place] [address] Dec, [facility] [address] [id number] [address] [place] [address], [place] [address] Dec, [facility] [address] [id number] [address] [place] [address], [place] [address] Dec, [facility] [address] [id number] [address] [place] [address], [place] [address] Nov, [facility] [address] [id number] [address] [place] [address], [place] [address] Nov, [facility] [address] [id number] [address] [place] [address], [place] [address] Nov, [facility] [address] [id number] [address] [place] [address], [place] [address] Oct, [facility] [address] [id number] [address] [place] [address], [place] [address] Oct, [facility] [address] [id number] [address] [place] [address], [place] [address] Oct, [facility] [address] [id number] [address] [place] [address], [place] [address] September, [facility] [address] [id number] [address] [place] [address], [place] [address] September, [facility] [address] [id number] [address] [place] [address], [place] [address] September, [facility] [address] [id number] [address] [place] [address], [place] [address] September, [facility] [address] [id number] [address] [place] [address], [place] [address] September, [facility] [address] [id number] [address] [place] [address], [place] [address] Aug, [facility] [address] [id number] [address] [place] [address], [place] [address] Aug, [facility] [address] [id number] [address] [place] [address], [place] [address] Aug, [facility] [address] [id number] [address] [place] [address], [place] [address] Jul, [facility] [address] [id number] [address] [place] [address], [place] [address] Jul, [facility] [address] [id number] [address] [place] [address], [place] [address] Jul, [facility] [address] [id number] [address] [place] [address], [place] [address] Jul, [facility] [address] [id number] [address] [place] [address], [place] [address] Jul, [facility] [address] [id number] [address] [place] [address], [place] [address] Jul, [facility] [address] [id number] [address] [place] [address], [place] [address] Jul, [facility] [address] [id number] [address] [place] [address], [place] [address] May, [facility] [address] [id number] [address] [place] [address], [place] [address] May, [facility] [address] [id number] [address] [place] [address], [place] [address] May, [facility] [address] [id number] [address] [place] [address], [place] [address] Apr, [facility] [address] [id number] [address] [place] [address], [place] [address] Apr, [facility] [address] [id number] [address] [place] [address], [place] [address] Apr, [facility] [address] [id number] [address] [place] [address], [place] [address] Apr, [facility] [address] [id number] [address] [place] [address], [place] [address] Apr, [facility] [address] [id number] [address] [place] [address], [place] [address] Mar, [facility] [address] [id number] [address] [place] [address], [place] [address] Mar, [facility] [address] [id number] [address] [place] [address], [place] [address] 15 Mar, 2012 [facility] [address] [id number] [address] [place] [address], [place] [address] Mar, [facility] [address] [id number] [address] [place] [address], [place] [address] Feb, [facility] [address] [id number] [address] [place] [address], [place] [address] Feb, [facility] [address] [id number] [address] [place] [address], [place] [address] Feb, [facility] [address] [id number] [address] [place] [address], [place] [address] Feb, [facility] [address] [id number] [address] [place] [address], [place] [address] Feb, [facility] [address] [id number] [address] [place] [address], [place] [address] Jan, [facility] [address] [id number] [address] [place] [address], [place] [address] Dec, [facility] [address] [id number] [address] [place] [address], [place] [address] Dec, [facility] [address] [id number] [address] [place] [address], [place] [address] Dec, [facility] [address] [id number] [address] [place] [address], [place] [address] Nov, [facility] [address] [id number] [address] [place] [address], [place] [address] Nov, [facility] [address] [id number] [address] [place] [address], [place] [address] Nov, [facility] [address] [id number] [address] [place] [address], [place] [address] Oct, [facility] [address] [id number] [address] [place] [address], [place] [address] Oct, [facility] [address] [id number] [address] [place] [address], [place] [address] Oct, [facility] [address] [id number] [address] [place] [address], [place] [address] Oct, [facility] [address] [id number] [address] [place] [address], [place] [address] September, [facility] [address] [id number] [address] [place] [address], [place] [address] September, [facility] [address] [id number] [address] [place] [address], [place] [address] Aug, [facility] [address] [id number] [address] [place] [address], [place] [address] Aug, [facility] [address] [id number] [address] [place] [address], [place] [address] Aug, [facility] [address] [id number] [address] [place] [address], [place] [address] Aug, [facility] [address] [id number] [address] [place] [address], [place] [address] Aug, [facility] [address] [id number] [address] [place] [address], [place] [address] Aug, [facility] [address] [id number] [address] [place] [address], [place] [address] Aug, [facility] [address] [id number] [address] [place] [address], [place] [address] Jul, [facility] [address] [id number] [address] [place] [address], [place] [address] Jul, [facility] [address] [id number] [address] [place] [address], [place] [address] Jul, [facility] [address] [id number] [address] [place] [address], [place] [address] May, [facility] [address] [id number] [address] [place] [phone] May, [facility] [address] [id number] [address] [place] [phone] May, [facility] [address] [id number] [address] [place] [phone] Apr, [facility] [address] [id number] [address] [place] [phone] Apr, [facility] [address] [id number] [address] [place] [id number] Mar, [facility] [address] [id number] [address] [place] [id number] Mar, [facility] [address] [id number] [address] [place] [id number] Mar, [facility] [address] [id number] [address] [place] [phone] Mar, [facility] [address] [id number] [address] [place] [id number] Mar, [facility] [address] [id number] [address] [place] [phone] Mar, [facility] [address] [id number] [address] [place] [phone] Feb, [facility] [address] [id number] [address] [place] [phone] Feb, [facility] [address] [id number] [address] [place] [phone] Feb, IMMUNIZATIONS No Known Immunizations SOCIAL HISTORY [...]
--- OUTSIDE RECORDS SUMMARY | 2020-01-03 07:42 | XMS REPORT ---
Author Author Tra SILVERIO Organization [facility] Address [address] [place] [address] Care Team Providers Care Captain Fishing Vessel Name Role Phone FERNY SILVERIO Unavailable PROBLEMS Type Condition ICD9-CM Code HYL78-JF Code Onset Dates Condition S tatus SNOMED Code Problem Insulin long-term use Z79.4 Active 047036853 Problem Hypertension I10 Active 9595474 3 Problem Diabetes E11.9 Active 89303497 Problem Hypoxia R09.02 Active 864382734 Problem Anxiety F41.9 Active 88308024 Problem Port catheter in place Z95.828 Active 673700564 Problem Pressure ulcer of other site, stage 3 L89.893 Active 763875545 Problem COPD (chronic obstructive pulmonary disease) J44.9 Active 39140230 Problem Type 2 diabetes mellitus wit h diabetic peripheral angiopathy without gangrene E11.51 Active 261012670 Problem Back pain M54.9 Active 623580925 Problem PAD (peripheral artery disease) I73.9 Active 955688202 Problem Lumbar radiculopathy, chronic M54.16 Active 151341986 Problem Recurrent major depressive disorder, in full remission F33.42 Active 102819927 Problem retirement current use of insulin Z79.4 Active 145901687 ALLERGIES No Information ENCOUNTERS Encounter Location Date Diagnosis [facility] [address] [facility] [id number] [address] [place] [id number] Jan, [facility] [address] [facility] [id number] [address] [place] [id number] Jan, Back pain M54.9 [facility] [address] [facility] [id number] [address] [place] [id number] Jan, [facility] [address] [facility] [id number] [address] [place] [address] Dec, Acute non-recurrent frontal sinusitis J01.10 [facility] [address] [id number] [address] [place] [address] Dec, Acute non-recurrent frontal sinusitis J01.10 [facility] [address] [id number] [address] [place] [address] Dec, Type 2 diabetes mellitus wit h diabetic peripheral angiopathy without gangrene E11.51 ; Lumbar radiculopathy, chronic M54.16 ; Recurrent major depressive disorder, in full remission F33.42 and Anxiety F41.9 [facility] [address] [id number] [address] [place] [id number] Dec, [facility] [address] [id number] [address] [place] [phone] Nov, Anxiety F41.9 [facility] [address] [id number] [address] [place] [address] Nov, [facility] [address] [id number] [address] [place] [phone] Nov, Back pain M54.9 [facility] [address] [id number] [address] [place] [phone] Nov, [facility] [address] [id number] [address] [place] [address] Nov, Back pain M54.9 [facility] [address] [id number] [address] [place] [id number] Nov, Anxiety F41.9 [facility] [address] [id number] [address] [place] [phone] Nov, [facility] [address] [id number] [address] [place] [phone] Oct, Back pain M54.9 [facility] [address] [id number] [address] [place] [id number] Oct, [facility] [address] [id number] [address] [place] [id number] Oct, [facility] [address] [id number] [address] [place] [id number] Oct, [facility] [address] [id number] [address] [place] [phone] September, Back pain M54.9 [facility] [address] [id number] [address] [place] [address] September, [facility] [address] [id number] [address] [place] [address] September, [facility] [address] [id number] [address] [place] [id number] September, [facility] [address] [id number] [address] [place] [address] Aug, Back pain M54.9 [facility] [address] [id number] [address] [place] [address] Aug, Anxiety F41.9 [facility] [address] [id number] [address] [place] [address] Aug, [facility] [address] [id number] [address] [place] [address] Aug, Pressure ulcer of other site , stage 3 L89.893 and COPD (chronic obstructive pulmonary disease) J44.9 [facility] [address] [facility] [id number] [address] [place] [address] Aug, History of smoking Z87.891 [facility] [address] [id number] [address] [place] [address] Jul, Type 2 diabetes mellitus wit h diabetic peripheral angiopathy without gangrene E11.51 [facility] [address] [id number] [address] [place] [address] Jul, Back pain M54.9 [facility] [address] [facility] [id number] [address] [place] [address] Jul, Anxiety F41.9 [facility] [address] [id number] [address] [place] [id number] 18 Jul, 2018 [facility] [address] [id number] [address] [place] [id number] 13 Jul, 2018 Back pain M54.9 [facility] [address] [id number] [address] [place] [phone] Jul, Back pain M54.9 [facility] [address] [id number] [address] [place] [address] Jul, Lumbar radiculopathy, chroni c M54.16 ; Hypertension I10 and Type 2 diabetes mellitus with diabetic peripheral angiopathy without gangrene E11.51 [facility] [address] [id number] [address] [place] [address] Jul, Back pain M54.9 [facility] [address] [id number] [address] [place] [id number] Jul, Back pain M54.9 and Anxiety F41.9 [facility] [address] [id number] [address] [place] [address] Jul, [facility] [address] [id number] [address] [place] [address] May, Back pain M54.9 and Anxiety F41.9 [facility] [address] [id number] [address] [place] [address] May, [facility] [address] [id number] [address] [place] [address] Apr, Radiculopathy of lumbar rhiannon on M54.16 ; Back pain M54.9 and Anxiety F41.9 [facility] [address] [id number] [address] [place] [address] Apr, Diabetes E11.9 ; Muscle spas m M62.838 and Lumbar radiculopathy, chronic M54.16 [facility] [address] [id number] [address] [place] [address] Apr, [facility] [address] [id number] [address] [place] [address] Apr, [facility] [address] [facility] [id number] [address] [place] [phone] Mar, Back pain M54.9 and Anxiety F41.9 [facility] [address] [id number] [address] [place] [address] Mar, [facility] [address] [id number] [address] [place] [id number] Mar, [facility] [address] [facility] [id number] [address] [place] [address] Mar, [facility] [address] [facility] [id number] [address] [place] [address] Mar, Encounter for immunization Z 23 [facility] [address] [facility] [id number] [address] [place] [address] Feb, Back pain M54.9 and Anxiety F41.9 [facility] [address] [facility] [id number] [address] [place] [id number] 04 Feb, 2018 Back pain M54.9 and Anxiety F41.9 [facility] [address] [facility] [id number] [address] [place] [address] Jan, Back pain M54.9 and Anxiety F41.9 [facility] [address] [facility] [id number] [address] [place] [address] Jan, [facility] [address] [id number] [address] [place] [address] Dec, [facility] [address] [facility] [id number] [address] [place] [address] Dec, Back pain M54.9 and Anxiety F41.9 [facility] [address] [facility] [id number] [address] [place] [address] Dec, Diabetes E11.9 ; Type 2 diab etes mellitus with diabetic peripheral angiopathy without gangrene E11.51 ; Lumbar radiculopathy, chronic M54.16 ; COPD (chronic obstructive pulmonary disease) J44.9 and Anxiety F41.9 [facility] [address] [id number] [address] [place] [address] Dec, Back pain M54.9 and Anxiety F41.9 [facility] [address] [id number] [address] [place] [address] Nov, Back pain M54.9 and Anxiety F41.9 [place] [address] [id number] [address] [place] [id number] Oct, [place] [address] [id number] [address] [place] [phone] Oct, Back pain M54.9 and Anxiety F41.9 [place] [address] [id number] [address] [place] [id number] September, Anxiety F41.9 and Back pain M54.9 [place] [address] [id number] [address] [place] [address] September, Diabetes E11.9 ; Hypertensio n I10 ; COPD (chronic obstructive pulmonary disease) J44.9 and Lumbar radiculopathy, chronic M54.16 [place] [address] [id number] [address] [place] [address] September, Anxiety F41.9 [facility] [address] [id number] [address] [place] [address] Aug, [facility] [address] [id number] [address] [place] [address] Aug, [facility] [address] [id number] [address] [place] [address] Aug, Anxiety F41.9 and Back pain M54.9 [facility] [address] [id number] [address] [place] [address] Aug, Medicare annual wellness vis it, initial [...] peripheral angiopathy without gangrene E11.51 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 [facility] [address] [id number] [address] [place] [address] Jul, Back pain M54.9 [facility] [address] [id number] [address] [place] [address] Jul, [place] [address] [facility] [id number] [address] [place] [id number] Jul, Anxiety F41.9 and Back pain M54.9 [facility] [address] [id number] [address] [place] [address] Jul, Diabetes E11.9 [facility] [address] [id number] [address] [place] [address] May, [facility] [address] [id number] [address] [place] [address] May, Diabetes E11.9 ; Anxiety F41 .9 ; Back pain M54.9 and COPD (chronic obstructive pulmonary disease) J44.9 [facility] [address] [id number] [address] [place] [phone] May, Back pain M54.9 [facility] [address] [id number] [address] [place] [address] May, [facility] [address] [id number] [address] [place] [address] Apr, Back pain M54.9 [facility] [address] [id number] [address] [place] [id number] 30 Mar, 2017 Back pain M54.9 [facility] [address] [id number] [address] [place] [address] Mar, [facility] [address] [id number] [address] [place] [id number] 16 Mar, 2017 [facility] [address] [id number] [address] [place] [id number] 14 Mar, 2017 Radiculopathy of lumbar rhiannon on M54.16 [facility] [address] [id number] [address] [place] [id number] 13 Mar, 2017 [facility] [address] [facility] [id number] [address] [place] [id number] 07 Mar, 2017 Encounter for immunization Z 23 and Lumbar radiculopathy, chronic M54.16 [facility] [address] [id number] [address] [place] [address] Mar, Back pain M54.9 and Anxiety F41.9 [facility] [address] [id number] [address] [place] [address] 10 Feb, 2017 Acute bilateral low back boy n with left-sided sciatica M54.42 and Acute bilateral low back pain with right-sided sciatica M54.41 [facility] [address] [id number] [address] [place] [id number] Feb, [facility] [address] [id number] [address] [place] [address] Feb, Back pain M54.9 [facility] [address] [id number] [address] [place] [id number] 05 Jan, 2017 Back pain M54.9 and Anxiety F41.9 [facility] [address] [facility] [id number] [address] [place] [address] 05 Jan, 2017 Diabetes E11.9 [facility] [address] [facility] [id number] [address] [place] [address] Dec, Diabetes E11.9 ; Back pain M 54.9 ; Anxiety F41.9 and Insulin long- term use Z79.4 [facility] [address] [id number] [address] [place] [address] Dec, Anxiety F41.9 [facility] [address] [id number] [address] [place] [id number] Dec, Back pain M54.9 [facility] [address] [id number] [address] [place] [address] Nov, Back pain M54.9 [facility] [address] [id number] [address] [place] [address] Oct, Back pain M54.9 and Anxiety F41.9 [facility] [address] [id number] [address] [place] [address] September, Back pain M54.9 [facility] [address] [id number] [address] [place] [address] September, Back pain M54.9 and Anxiety F41.9 [facility] [address] [id number] [address] [place] [address] Aug, Diabetes E11.9 ; Anxiety F41 .9 ; Back pain M54.9 and PAD (peripheral artery disease) I73.9 [facility] [address] [id number] [address] [place] [address] Aug, Anxiety F41.9 [facility] [address] [id number] [address] [place] [address] Aug, Back pain M54.9 [facility] [address] [id number] [address] [place] [address] Jul, Back pain M54.9 [facility] [address] [id number] [address] [place] [address] Jul, Back pain M54.9 [facility] [address] [id number] [address] [place] [address] Jul, Back pain M54.9 [facility] [address] [id number] [address] [place] [id number] 16 Jul, 2016 Dorsalgia M54.9 [facility] [address] [id number] [address] [place] [id number] 14 Jul, 2016 [facility] [address] [id number] [address] [place] [address] May, Back pain M54.9 [facility] [address] [id number] [address] [place] [address] May, Diabetes E11.9 ; Anxiety F41 .9 ; Port catheter in place Z95.828 ; Encounter for immunization Z23 and Insulin long-term use Z79.4 [facility] [address] [id number] [address] [place] [address] Apr, Back pain M54.9 [facility] [address] [id number] [address] [place] [id number] Apr, Back pain M54.9 [facility] [address] [id number] [address] [place] [id number] Apr, [facility] [address] [id number] [address] [place] [address] Apr, Back pain M54.9 [facility] [address] [id number] [address] [place] [id number] Mar, COPD (chronic obstructive pu lmonary disease) J44.9 [facility] [address] [id number] [address] [place] [address] Feb, [facility] [address] [id number] [address] [place] [address] 30 Jan, 2016 [facility] [address] [id number] [address] [place] [address] Jan, [facility] [address] [id number] [address] [place] [id number] 07 Jan, 2016 [facility] [address] [id number] [address] [place] [address] Jan, [facility] [address] [id number] [address] [place] [address] Dec, Diabetes E11.9 ; Hypoxia R09 .02 and Back pain M54.9 [facility] [address] [id number] [address] [place] [address] Dec, [facility] [address] [id number] [address] [place] [address] Nov, [facility] [address] [id number] [address] [place] [id number] Oct, Anxiety F41.9 [facility] [address] [id number] [address] [place] [id number] Oct, Back pain M54.9 [facility] [address] [id number] [address] [place] [id number] September, Back pain M54.9 [facility] [address] [id number] [address] [place] [id number] September, Diabetes E11.9 [facility] [address] [id number] [address] [place] [id number] September, [facility] [address] [id number] [address] [place] [id number] September, Diabetes E11.9 ; Insulin sarai g-term use Z79.4 and Back pain M54.9 [facility] [address] [id number] [address] [place] [address] Aug, Back pain M54.9 [facility] [address] [facility] [id number] [address] [place] [id number] Aug, Back pain M54.9 ; Anxiety F4 1.9 and Arthropathy, unspecified M12.9 [facility] [address] [id number] [address] [place] [id number] Jul, Back pain M54.9 [facility] [address] [facility] [id number] [address] [place] [id number] Jul, Anxiety F41.9 [facility] [address] [place] [id number] [address] [place] [address] Jul, Back pain M54.9 [facility] [address] [place] [id number] [place] [address] Jul, [facility] [address] [place] [id number] [address] [place] [id number] Jul, [facility] [address] [place] [id number] [place] [address] May, Back pain M54.9 ; Diabetes E 11.9 ; Insulin long-term use Z79.4 ; COPD (chronic obstructive pulmonary disease) J44.9 and Hypertension I10 [facility] [address] [address] May, Chronic pain G89.29 [facility] [address] [id number] Apr, [facility] [id number] [place] [id number] Apr, [facility] [address] [address] Mar, [facility] [address] [address] Mar, Encounter for immunization Z 23 and Diabetes E11.9 [facility] [id number] [place] [id number] Feb, [facility] [id number] [address] [place] [id number] Feb, [facility] [address] [id number] Jan, [facility] [address] [id number] [address] [place] [id number] Jan, [facility] [address] [id number] [address] [place] [address], [place] [address] Dec, [facility] [address] [id number] [address] [place] [address], [place] [address] Dec, [facility] [address] [id number] [address] [place] [address], [place] [address] Dec, Unspecified arthropathy, sit e unspecified 716.90 and Diabetes mellitus type 2, uncontrolled 250.02 [facility] [address] [id number] [address] [place] [address], [place] [address] Dec, [facility] [address] [id number] [address] [place] [phone] Nov, [facility] [address] [id number] [address] [place] [address], [place] [address] Oct, [facility] [address] [id number] [address] [place] [phone] September, [facility] [address] [id number] [address] [place] [address], [place] [address] September, [facility] [address] [id number] [address] [place] [phone] September, [facility] [address] [id number] [address] [place] [phone] September, [facility] [address] [id number] [address] [place] [phone] Aug, [facility] [address] [id number] [address] [place] [id number] Aug, [facility] [address] [id number] [address] [place] [id number] Jul, [facility] [address] [id number] [address] [place] [id number] 18 Jul, 2014 [facility] [address] [id number] [facility] [place] [address] 16 Jul, 2014 [facility] [address] [id number] [address] [place] [address], [place] [address] 16 Jul, 2014 [facility] [address] [id number] [address] [place] [address], [place] [address] 16 Jul, 2014 [facility] [address] [id number] [address] [place] [address], [place] [address] 16 Jul, 2014 [facility] [address] [id number] [address] [place] [address], [place] [address] 16 Jul, 2014 [facility] [address] [id number] [address] [place] [address], [place] [address] 16 Jul, 2014 [facility] [address] [id number] [address] [place] [address], [place] [address] 16 Jul, 2014 [facility] [address] [id number] [address] [place] [address], [place] [address] 13 Jul, 2014 [facility] [address] [id number] [address] [place] [address], [place] [address] 13 Jul, 2014 [facility] [address] [address] [id number] [address] [place] [address], [place] [address] 09 Jul, 2014 [facility] [address] [id number] [address] [place] [address], [place] [address] 09 Jul, 2014 [facility] [address] [id number] [address] [place] [address], [place] [address] 17 Jul, 2014 [facility] [address] [id number] [address] [place] [address], [place] [address] 17 Jul, 2014 [facility] [address] [id number] [address] [place] [address], [place] [address] 16 Jul, 2014 [facility] [address] [id number] [address] [place] [address], [place] [address] 16 Jul, 2014 [facility] [address] [id number] [address] [place] [address], [place] [address] 16 Jul, 2014 [facility] [address] [id number] [address] [place] [address], [place] [address] 16 Jul, 2014 [facility] [address] [id number] [address] [place] [address], [place] [address] 16 Jul, 2014 [facility] [address] [id number] [address] [place] [address], [place] [address] 16 Jul, 2014 [facility] [address] [id number] [address] [place] [address], [place] [address] Jul, 2014 [facility] [address] [id number] [address] [place] [address], [place] [address] Jul, 2014 [facility] [address] [id number] [address] [place] [address], [place] [address] 16 Jul, 2014 [facility] [address] [id number] [address] [place] [address], [place] [address] Jul, 2014 [facility] [address] [id number] [address] [place] [address], [place] [address] Jul, 2014 [facility] [address] [id number] [address] [place] [address], [place] [address] Jul, 2014 [facility] [address] [id number] [address] [place] [address], [place] [address] Jul, 2014 [facility] [address] [id number] [address] [place] [address] Jul, 2014 [facility] [address] [id number] [address] [place] [address], [place] [address] May, [facility] [address] [id number] [address] [place] [address] May, [facility] [address] [id number] [address] [place] [address] May, [facility] [address] [id number] [address] [place] [address] May, [facility] [address] [id number] [address] [place] [address], [place] [address] May, [facility] [address] [id number] [address] [place] [address], [place] [address] May, [facility] [address] [id number] [address] [place] [address], [place] [address] May, [facility] [address] [id number] [address] [place] [address], [place] [address] May, [facility] [address] [id number] [address] [place] [address], [place] [address] May, [facility] [address] [id number] [address] [place] [address], [place] [address] May, [facility] [address] [id number] [address] [place] [address], [place] [address] Apr, [facility] [address] [id number] [address] [place] [address], [place] [address] Apr, [facility] [address] [id number] [address] [place] [address], [place] [address] Apr, [facility] [address] [id number] [address] [place] [address], [place] [address] Apr, [facility] [address] [id number] [address] [place] [address], [place] [address] Apr, [facility] [address] [id number] [address] [place] [address], [place] [address] Apr, [facility] [address] [id number] [address] [place] [address], [place] [address] Mar, [facility] [address] [id number] [address] [place] [address], [place] [address] Mar, [facility] [address] [id number] [address] [place] [address], [place] [address] Mar, [facility] [address] [id number] [address] [place] [address], [place] [address] Mar, [facility] [address] [id number] [address] [place] [address], [place] [address] Mar, [facility] [address] [id number] [address] [place] [address], [place] [address] Mar, [facility] [address] [id number] [address] [place] [address], [place] [address] Mar, [facility] [address] [id number] [address] [place] [address], [place] [address] Mar, [facility] [address] [id number] [address] [place] [address], [place] [address] Mar, [facility] [address] [id number] [address] [place] [address], [place] [address] Mar, [facility] [address] [id number] [address] [place] [address], [place] [address] Mar, [facility] [address] [id number] [address] [place] [address], [place] [address] Feb, [facility] [address] [id number] [address] [place] [address], [place] [address] 30 Feb, 2014 [facility] [address] [id number] [address] [place] [address], [place] [address] 15 Feb, 2014 [facility] [address] [id number] [address] [place] [address], [place] [address] 15 Feb, 2014 [facility] [address] [id number] [address] [place] [address], [place] [address] Feb, [facility] [address] [id number] [address] [place] [address], [place] [address] Feb, [facility] [address] [id number] [address] [place] [address], [place] [address] Feb, [facility] [address] [id number] [address] [place] [address], [place] [address] Feb, [facility] [address] [id number] [facility] [place] [address] Feb, [facility] [address] [id number] [address] [place] [address], [place] [address] Feb, [facility] [address] [id number] [address] [place] [address], [place] [address] Jan, [facility] [address] [id number] [address] [place] [address], [place] [address] Jan, [facility] [address] [id number] [address] [place] [address], [place] [address] Jan, [facility] [address] [id number] [address] [place] [address], [place] [address] Jan, [facility] [address] [id number] [address] [place] [address], [place] [address] Jan, [facility] [address] [id number] [address] [place] [address], [place] [address] Jan, [facility] [address] [id number] [address] [place] [address], [place] [address] Jan, [facility] [address] [id number] [address] [place] [address], [place] [address] Dec, [facility] [address] [id number] [address] [place] [address], [place] [address] Dec, [facility] [address] [id number] [address] [place] [address], [place] [address] Dec, [facility] [address] [id number] [address] [place] [address], [place] [address] Dec, [facility] [address] [id number] [address] [place] [address], [place] [address] Dec, [facility] [address] [id number] [address] [place] [address], [place] [address] Dec, [facility] [address] [id number] [address] [place] [address], [place] [address] Dec, [facility] [address] [id number] [address] [place] [address], [place] [address] Dec, [facility] [address] [id number] [address] [place] [address], [place] [address] Oct, [facility] [address] [id number] [address] [place] [address], [place] [address] Oct, [facility] [address] [id number] [address] [place] [address], [place] [address] September, [facility] [address] [id number] [address] [place] [address], [place] [address] September, [facility] [address] [id number] [address] [place] [address], [place] [address] September, [facility] [address] [id number] [address] [place] [address], [place] [address] September, [facility] [address] [id number] [address] [place] [address], [place] [address] September, [facility] [address] [id number] [address] [place] [address], [place] [address] September, [facility] [address] [id number] [address] [place] [address], [place] [address] September, [facility] [address] [id number] [address] [place] [address], [place] [address] Aug, [facility] [address] [id number] [address] [place] [address], [place] [address] Aug, [facility] [address] [id number] [address] [place] [address], [place] [address] Jul, [facility] [address] [id number] [address] [place] [address], [place] [address] Jul, [facility] [address] [id number] [address] [place] [address], [place] [address] Jul, [facility] [address] [id number] [address] [place] [address], [place] [address] 17 Jul, 2013 [facility] [address] [id number] [address] [place] [address], [place] [address] 14 Jul, 2013 [facility] [address] [id number] [address] [place] [address], [place] [address] 14 Jul, 2013 [facility] [address] [id number] [address] [place] [address], [place] [address] Jul, [facility] [address] [id number] [address] [place] [address], [place] [address] Jul, [facility] [address] [id number] [address] [place] [address], [place] [address] 15 May, 2013 [facility] [address] [id number] [address] [place] [address], [place] [address] May, [facility] [address] [id number] [address] [place] [address], [place] [address] May, [facility] [address] [id number] [address] [place] [address], [place] [address] May, [facility] [address] [id number] [address] [place] [address], [place] [address] 18 Apr, 2013 [facility] [address] [id number] [address] [place] [address], [place] [address] Mar, [facility] [address] [id number] [address] [place] [address], [place] [address] Mar, [facility] [address] [id number] [address] [place] [address], [place] [address] Mar, [facility] [address] [id number] [address] [place] [address], [place] [address] Mar, [facility] [address] [id number] [address] [place] [address], [place] [address] 18 Mar, 2013 [facility] [address] [id number] [address] [place] [address], [place] [address] 18 Mar, 2013 [facility] [address] [id number] [address] [place] [address], [place] [address] 18 Mar, 2013 [facility] [address] [id number] [address] [place] [address], [place] [address] 18 Mar, 2013 [facility] [address] [id number] [address] [place] [address], [place] [address] Mar, [facility] [address] [id number] [address] [place] [address], [place] [address] Mar, [facility] [address] [id number] [address] [place] [address], [place] [address] Mar, [facility] [address] [id number] [address] [place] [address], [place] [address] Mar, [facility] [address] [id number] [address] [place] [address], [place] [address] 15 Feb, 2013 [facility] [address] [id number] [address] [place] [address], [place] [address] 15 Feb, 2013 [facility] [address] [id number] [address] [place] [address], [place] [address] Feb, [facility] [address] [id number] [address] [place] [address], [place] [address] Feb, [facility] [address] [id number] [address] [place] [address], [place] [address] Feb, [facility] [address] [id number] [address] [place] [address], [place] [address] Jan, [facility] [address] [id number] [address] [place] [address], [place] [address] Dec, [facility] [address] [id number] [address] [place] [address], [place] [address] Dec, [facility] [address] [id number] [address] [place] [address], [place] [address] Dec, [facility] [address] [id number] [address] [place] [address], [place] [address] Nov, [facility] [address] [id number] [address] [place] [address], [place] [address] Nov, [facility] [address] [id number] [address] [place] [address], [place] [address] Nov, [facility] [address] [id number] [address] [place] [address], [place] [address] Oct, [facility] [address] [id number] [address] [place] [address], [place] [address] Oct, [facility] [address] [id number] [address] [place] [address], [place] [address] Oct, [facility] [address] [id number] [address] [place] [address], [place] [address] September, [facility] [address] [id number] [address] [place] [address], [place] [address] September, [facility] [address] [id number] [address] [place] [address], [place] [address] September, [facility] [address] [id number] [address] [place] [address], [place] [address] September, [facility] [address] [id number] [address] [place] [address], [place] [address] September, [facility] [address] [id number] [address] [place] [address], [place] [address] Aug, [facility] [address] [id number] [address] [place] [address], [place] [address] Aug, [facility] [address] [id number] [address] [place] [address], [place] [address] Aug, [facility] [address] [id number] [address] [place] [address], [place] [address] Jul, [facility] [address] [id number] [address] [place] [address], [place] [address] Jul, [facility] [address] [id number] [address] [place] [address], [place] [address] Jul, [facility] [address] [id number] [address] [place] [address], [place] [address] Jul, [facility] [address] [id number] [address] [place] [address], [place] [address] Jul, [facility] [address] [id number] [address] [place] [address], [place] [address] Jul, [facility] [address] [id number] [address] [place] [address], [place] [address] Jul, [facility] [address] [id number] [address] [place] [address], [place] [address] May, [facility] [address] [id number] [address] [place] [address], [place] [address] May, [facility] [address] [id number] [address] [place] [address], [place] [address] May, [facility] [address] [id number] [address] [place] [address], [place] [address] Apr, [facility] [address] [id number] [address] [place] [address], [place] [address] Apr, [facility] [address] [id number] [address] [place] [address], [place] [address] Apr, [facility] [address] [id number] [address] [place] [address], [place] [address] Apr, [facility] [address] [id number] [address] [place] [address], [place] [address] Apr, [facility] [address] [id number] [address] [place] [address], [place] [address] Mar, [facility] [address] [id number] [address] [place] [address], [place] [address] Mar, [facility] [address] [id number] [address] [place] [address], [place] [address] 15 Mar, 2012 [facility] [address] [id number] [address] [place] [address], [place] [address] Mar, [facility] [address] [id number] [address] [place] [address], [place] [address] Feb, [facility] [address] [id number] [address] [place] [address], [place] [address] Feb, [facility] [address] [id number] [address] [place] [address], [place] [address] Feb, [facility] [address] [id number] [address] [place] [address], [place] [address] Feb, [facility] [address] [id number] [address] [place] [address], [place] [address] Feb, [facility] [address] [id number] [address] [place] [address], [place] [address] Jan, [facility] [address] [id number] [address] [place] [address], [place] [address] Dec, [facility] [address] [id number] [address] [place] [address], [place] [address] Dec, [facility] [address] [id number] [address] [place] [address], [place] [address] Dec, [facility] [address] [id number] [address] [place] [address], [place] [address] Nov, [facility] [address] [id number] [address] [place] [address], [place] [address] Nov, [facility] [address] [id number] [address] [place] [address], [place] [address] Nov, [facility] [address] [id number] [address] [place] [address], [place] [address] Oct, [facility] [address] [id number] [address] [place] [address], [place] [address] Oct, [facility] [address] [id number] [address] [place] [address], [place] [address] Oct, [facility] [address] [id number] [address] [place] [address], [place] [address] Oct, [facility] [address] [id number] [address] [place] [address], [place] [address] September, [facility] [address] [id number] [address] [place] [address], [place] [address] September, [facility] [address] [id number] [address] [place] [address], [place] [address] Aug, [facility] [address] [id number] [address] [place] [address], [place] [address] Aug, [facility] [address] [id number] [address] [place] [address], [place] [address] Aug, [facility] [address] [id number] [address] [place] [address], [place] [address] Aug, [facility] [address] [id number] [address] [place] [address], [place] [address] Aug, [facility] [address] [id number] [address] [place] [address], [place] [address] Aug, [facility] [address] [id number] [address] [place] [address], [place] [address] Aug, [facility] [address] [id number] [address] [place] [address], [place] [address] Jul, [facility] [address] [id number] [address] [place] [address], [place] [address] Jul, [facility] [address] [id number] [address] [place] [address], [place] [address] Jul, [facility] [address] [id number] [address] [place] [address], [place] [address] May, [facility] [address] [id number] [address] [place] [address] May, [facility] [address] [id number] [address] [place] [id number] May, [facility] [address] [id number] [address] [place] [address] Apr, [facility] [address] [id number] [address] [place] [address] Apr, [facility] [address] [id number] [address] [place] [address] Mar, [facility] [address] [id number] [address] [place] [address] Mar, [facility] [address] [id number] [address] [place] [id number] Mar, [facility] [address] [id number] [address] [place] [address] Mar, [facility] [address] [id number] [address] [place] [address] Mar, [facility] [address] [id number] [address] [place] [address] Mar, [facility] [address] [id number] [address] [place] [id number] Feb, [facility] [address] [id number] [address] [place] [address] Feb, [facility] [address] [id number] [address] [place] [id number] Feb, IMMUNIZATIONS No Known Immunizations SOCIAL HISTORY [...]
--- OUTSIDE RECORDS SUMMARY | 2020-01-03 07:43 | XMS REPORT ---
Author Author Tra SILVERIO Organization [facility] Address [address] [place] [address] Care Team Providers Care It Account Manager Name Role Phone FERNY SILVERIO Unavailable PROBLEMS Type Condition ICD9-CM Code LQY64-OC Code Onset Dates Condition S tatus SNOMED Code Problem Insulin long-term use Z79.4 Active 578441525 Problem Hypertension I10 Active 5662798 3 Problem Diabetes E11.9 Active 70868359 Problem Hypoxia R09.02 Active 979905038 Problem Anxiety F41.9 Active 61033502 Problem Port catheter in place Z95.828 Active 839522332 Problem Pressure ulcer of other site, stage 3 L89.893 Active 722077711 Problem COPD (chronic obstructive pulmonary disease) J44.9 Active 68646021 Problem Type 2 diabetes mellitus wit h diabetic peripheral angiopathy without gangrene E11.51 Active 090667011 Problem Back pain M54.9 Active 878433776 Problem PAD (peripheral artery disease) I73.9 Active 961332155 Problem Lumbar radiculopathy, chronic M54.16 Active 224408680 Problem Recurrent major depressive disorder, in full remission F33.42 Active 482589893 Problem 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.4 Active 225044504 ALLERGIES No Information ENCOUNTERS Encounter Location Date Diagnosis [facility] [address] [facility] [id number] [address] [place] [phone] Dec, Acute non-recurrent frontal sinusitis J01.10 [facility] [address] [facility] [id number] [address] [place] [phone] Dec, Acute non-recurrent frontal sinusitis J01.10 [facility] [address] [facility] [id number] [address] [place] [phone] Dec, Type 2 diabetes mellitus wit h diabetic peripheral angiopathy without gangrene E11.51 ; Lumbar radiculopathy, chronic M54.16 ; Recurrent major depressive disorder, in full remission F33.42 and Anxiety F41.9 [facility] [address] [id number] [address] [place] [phone] Dec, [facility] [address] [id number] [address] [place] [id number] Nov, Anxiety F41.9 [facility] [address] [id number] [address] [place] [phone] Nov, [facility] [address] [id number] [address] [place] [phone] Nov, Back pain M54.9 [facility] [address] [id number] [address] [place] [phone] Nov, [facility] [address] [id number] [address] [place] [phone] Nov, Back pain M54.9 [facility] [address] [id number] [address] [place] [phone] Nov, Anxiety F41.9 [facility] [address] [id number] [address] [place] [phone] Nov, [facility] [address] [id number] [address] [place] [phone] Oct, Back pain M54.9 [facility] [address] [id number] [address] [place] [phone] Oct, [facility] [address] [id number] [address] [place] [phone] Oct, [facility] [address] [id number] [address] [place] [phone] Oct, [facility] [address] [id number] [address] [place] [phone] September, Back pain M54.9 [facility] [address] [id number] [address] [place] [phone] September, [facility] [address] [id number] [address] [place] [phone] September, [facility] [address] [id number] [address] [place] [phone] September, [facility] [address] [id number] [address] [place] [phone] Aug, Back pain M54.9 [facility] [address] [id number] [address] [place] [phone] Aug, Anxiety F41.9 [facility] [address] [id number] [address] [place] [phone] Aug, [facility] [address] [facility] [id number] [address] [place] [phone] Aug, Pressure ulcer of other site , stage 3 L89.893 and COPD (chronic obstructive pulmonary disease) J44.9 [facility] [address] [id number] [address] [place] [phone] Aug, History of smoking Z87.891 [facility] [address] [facility] [id number] [address] [place] [phone] Jul, Type 2 diabetes mellitus wit h diabetic peripheral angiopathy without gangrene E11.51 [facility] [address] [facility] [id number] [address] [place] [phone] Jul, Back pain M54.9 [facility] [address] [id number] [address] [place] [id number] Jul, Anxiety F41.9 [facility] [address] [id number] [address] [place] [phone] Jul, [facility] [address] [facility] [id number] [address] [place] [phone] Jul, Back pain M54.9 [facility] [address] [facility] [id number] [address] [place] [phone] Jul, Back pain M54.9 [facility] [address] [id number] [address] [place] [phone] Jul, Lumbar radiculopathy, chroni c M54.16 ; Hypertension I10 and Type 2 diabetes mellitus with diabetic peripheral angiopathy without gangrene E11.51 [facility] [address] [id number] [address] [place] [phone] Jul, Back pain M54.9 [facility] [address] [id number] [address] [place] [phone] Jul, Back pain M54.9 and Anxiety F41.9 [facility] [address] [id number] [address] [place] [phone] Jul, [facility] [address] [id number] [address] [place] [phone] May, Back pain M54.9 and Anxiety F41.9 [facility] [address] [id number] [address] [place] [phone] May, [facility] [address] [id number] [address] [place] [phone] Apr, Radiculopathy of lumbar rhiannon on M54.16 ; Back pain M54.9 and Anxiety F41.9 [facility] [address] [id number] [address] [place] [phone] Apr, Diabetes E11.9 ; Muscle spas m M62.838 and Lumbar radiculopathy, chronic M54.16 [facility] [address] [id number] [address] [place] [phone] Apr, [facility] [address] [id number] [address] [place] [phone] Apr, [facility] [address] [id number] [address] [place] [phone] Mar, Back pain M54.9 and Anxiety F41.9 [place] [address] [id number] [address] [place] [phone] Mar, [facility] [address] [id number] [address] [place] [phone] Mar, [facility] [address] [id number] [address] [place] [phone] Mar, [facility] [address] [id number] [address] [place] [phone] Mar, Encounter for immunization Z 23 [facility] [address] [id number] [address] [place] [phone] Feb, Back pain M54.9 and Anxiety F41.9 [facility] [address] [id number] [address] [place] [phone] Feb, Back pain M54.9 and Anxiety F41.9 [facility] [address] [id number] [address] [place] [phone] Jan, Back pain M54.9 and Anxiety F41.9 [facility] [address] [id number] [address] [place] [phone] Jan, [facility] [address] [id number] [address] [place] [phone] Dec, [facility] [address] [id number] [address] [place] [phone] Dec, Back pain M54.9 and Anxiety F41.9 [facility] [address] [id number] [address] [place] [phone] 13 Dec, 2017 Diabetes E11.9 ; Type 2 diab etes mellitus with diabetic peripheral angiopathy without gangrene E11.51 ; Lumbar radiculopathy, chronic M54.16 ; COPD (chronic obstructive pulmonary disease) J44.9 and Anxiety F41.9 [facility] [address] [id number] [address] [place] [phone] 09 Dec, 2017 Back pain M54.9 and Anxiety F41.9 [facility] [address] [id number] [address] [place] [phone] Nov, Back pain M54.9 and Anxiety F41.9 [facility] [address] [id number] [address] [place] [phone] Oct, [facility] [address] [id number] [address] [place] [phone] Oct, Back pain M54.9 and Anxiety F41.9 [facility] [address] [id number] [address] [place] [phone] September, Anxiety F41.9 and Back pain M54.9 [place] [address] [id number] [address] [place] [phone] September, Diabetes E11.9 ; Hypertensio n I10 ; COPD (chronic obstructive pulmonary disease) J44.9 and Lumbar radiculopathy, chronic M54.16 [place] [address] [id number] [address] [place] [phone] September, Anxiety F41.9 [place] [address] [id number] [address] [place] [phone] Aug, [facility] [address] [id number] [address] [place] [phone] Aug, [facility] [address] [id number] [address] [place] [phone] Aug, Anxiety F41.9 and Back pain M54.9 [facility] [address] [id number] [address] [place] [phone] Aug, Medicare annual wellness vis it, initial Z00.00 ; COPD (chronic obstructive pulmonary disease) J44.9 ; PAD (peripheral artery disease) I73.9 ; Insulin long-term use Z79.4 ; Hypertension I10 ; Anxiety F41.9 ; Recurrent major depressive disorder, in full remission F33.42 ; Pressure ulcer of other site, stage 3 L89.893 ; Type 2 diabetes mellitus with diabetic peripheral angiopathy without gangrene E11.51 and 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 [facility] [address] [id number] [address] [place] [phone] Jul, Back pain M54.9 [facility] [address] [id number] [address] [place] [phone] Jul, [facility] [address] [id number] [address] [place] [phone] Jul, Anxiety F41.9 and Back pain M54.9 [facility] [address] [id number] [address] [place] [phone] Jul, Diabetes E11.9 [facility] [address] [id number] [address] [place] [phone] May, [facility] [address] [id number] [address] [place] [phone] May, Diabetes E11.9 ; Anxiety F41 .9 ; Back pain M54.9 and COPD (chronic obstructive pulmonary disease) J44.9 [facility] [address] [id number] [address] [place] [phone] May, Back pain M54.9 [facility] [address] [id number] [address] [place] [phone] May, [facility] [address] [id number] [address] [place] [phone] Apr, Back pain M54.9 [facility] [address] [id number] [address] [place] [phone] Mar, Back pain M54.9 [facility] [address] [id number] [address] [place] [phone] Mar, [facility] [address] [id number] [address] [place] [phone] 16 Mar, 2017 [facility] [address] [id number] [address] [place] [phone] 14 Mar, 2017 Radiculopathy of lumbar rhiannon on M54.16 [facility] [address] [id number] [address] [place] [phone] 13 Mar, 2017 [facility] [address] [facility] [id number] [address] [place] [phone] 07 Mar, 2017 Encounter for immunization Z 23 and Lumbar radiculopathy, chronic M54.16 [facility] [address] [facility] [id number] [address] [place] [phone] Mar, Back pain M54.9 and Anxiety F41.9 [facility] [address] [facility] [id number] [address] [place] [phone] 10 Feb, 2017 Acute bilateral low back boy n with left-sided sciatica M54.42 and Acute bilateral low back pain with right-sided sciatica M54.41 [place] [id number] [place] [phone] Feb, [place] [address] [facility] [id number] [address] [place] [phone] Feb, Back pain M54.9 [place] [address] [place] [id number] [address] [place] [phone] 05 Jan, 2017 Back pain M54.9 and Anxiety F41.9 [place] [address] [place] [id number] [address] [place] [phone] 05 Jan, 2017 Diabetes E11.9 [place] [address] [place] [id number] [address] [place] [phone] 14 Dec, 2016 Diabetes E11.9 ; Back pain M 54.9 ; Anxiety F41.9 and Insulin long- term use Z79.4 [place] [address] [facility] [id number] [address] [place] [phone] Dec, Anxiety F41.9 [place] [address] [place] [id number] [address] [place] [phone] Dec, Back pain M54.9 [place] [address] [id number] [address] [place] [phone] Nov, Back pain M54.9 [facility] [address] [id number] [address] [place] [phone] Oct, Back pain M54.9 and Anxiety F41.9 [facility] [address] [id number] [address] [place] [phone] September, Back pain M54.9 [facility] [address] [id number] [address] [place] [phone] September, Back pain M54.9 and Anxiety F41.9 [facility] [address] [id number] [address] [place] [phone] Aug, Diabetes E11.9 ; Anxiety F41 .9 ; Back pain M54.9 and PAD (peripheral artery disease) I73.9 [facility] [address] [id number] [address] [place] [phone] Aug, Anxiety F41.9 [facility] [address] [id number] [address] [place] [phone] Aug, Back pain M54.9 [facility] [address] [facility] [id number] [address] [place] [phone] 23 Jul, 2016 Back pain M54.9 [facility] [address] [id number] [address] [place] [phone] Jul, Back pain M54.9 [facility] [address] [id number] [address] [place] [phone] 23 Jul, 2016 Back pain M54.9 [facility] [address] [id number] [address] [place] [phone] 16 Jul, 2016 Dorsalgia M54.9 [facility] [address] [id number] [address] [place] [id number] 14 Jul, 2016 [facility] [address] [id number] [address] [place] [phone] May, Back pain M54.9 [facility] [address] [id number] [address] [place] [phone] May, Diabetes E11.9 ; Anxiety F41 .9 ; Port catheter in place Z95.828 ; Encounter for immunization Z23 and Insulin long-term use Z79.4 [facility] [address] [id number] [address] [place] [phone] Apr, Back pain M54.9 [facility] [address] [id number] [address] [place] [phone] Apr, Back pain M54.9 [facility] [address] [id number] [address] [place] [phone] Apr, [facility] [address] [id number] [address] [place] [phone] Apr, Back pain M54.9 [facility] [address] [id number] [address] [place] [phone] Mar, COPD (chronic obstructive pu lmonary disease) J44.9 [facility] [address] [id number] [address] [place] [phone] Feb, [facility] [address] [id number] [address] [place] [phone] Jan, [facility] [address] [id number] [address] [place] [phone] Jan, [facility] [address] [id number] [address] [place] [phone] Jan, [facility] [address] [id number] [address] [place] [phone] Jan, [facility] [address] [id number] [address] [place] [phone] Dec, Diabetes E11.9 ; Hypoxia R09 .02 and Back pain M54.9 [facility] [address] [id number] [address] [place] [phone] Dec, [facility] [address] [id number] [address] [place] [phone] Nov, [facility] [address] [id number] [address] [place] [phone] Oct, Anxiety F41.9 [facility] [address] [id number] [address] [place] [id number] Oct, Back pain M54.9 [facility] [address] [id number] [address] [place] [phone] September, Back pain M54.9 [facility] [address] [facility] [id number] [address] [place] [phone] September, Diabetes E11.9 [facility] [address] [facility] [id number] [address] [place] [phone] September, [facility] [address] [facility] [id number] [address] [place] [phone] September, Diabetes E11.9 ; Insulin sarai g-term use Z79.4 and Back pain M54.9 [facility] [address] [facility] [id number] [address] [place] [phone] Aug, Back pain M54.9 [facility] [address] [facility] [id number] [address] [place] [phone] Aug, Back pain M54.9 ; Anxiety F4 1.9 and Arthropathy, unspecified M12.9 [facility] [address] [id number] [address] [place] [phone] Jul, Back pain M54.9 [facility] [address] [facility] [id number] [address] [place] [phone] Jul, Anxiety F41.9 [facility] [address] [facility] [id number] [address] [place] [phone] Jul, Back pain M54.9 [facility] [address] [facility] [id number] [address] [place] [phone] 17 Jul, 2015 [facility] [address] [facility] [id number] [address] [place] [phone] Jul, [facility] [address] [facility] [id number] [address] [place] [phone] May, Back pain M54.9 ; Diabetes E 11.9 ; Insulin long-term use Z79.4 ; COPD (chronic obstructive pulmonary disease) J44.9 and Hypertension I10 [facility] [address] [facility] [id number] [address] [place] [phone] May, Chronic pain G89.29 [facility] [address] [facility] [id number] [address] [place] [phone] Apr, [facility] [address] [facility] [id number] [address] [place] [id number] Apr, [facility] [address] [facility] [id number] [address] [place] [phone] Mar, [facility] [address] [facility] [id number] [address] [place] [phone] Mar, Encounter for immunization Z 23 and Diabetes E11.9 [facility] [address] [facility] [id number] [address] [place] [phone] Feb, [facility] [address] [facility] [id number] [address] [place] [phone] Feb, [facility] [address] [id number] [address] [place] [phone] 23 Jan, 2015 [facility] [address] [facility] [id number] [address] [place] [phone] 16 Jan, 2015 [facility] [address] [facility] [id number] [address] [place] [phone] Dec, [facility] [address] [facility] [id number] [address] [place] [phone] Dec, [facility] [address] [id number] [address] [place] [phone] Dec, Unspecified arthropathy, sit e unspecified 716.90 and Diabetes mellitus type 2, uncontrolled 250.02 [facility] [address] [id number] [address] [place] [address], [place] [phone] Dec, [facility] [address] [id number] [address] [place] [phone] Nov, [facility] [address] [id number] [address] [place] [address], [place] [phone] Oct, [facility] [address] [id number] [address] [place] [address], [place] [phone] September, [facility] [address] [id number] [address] [place] [address], [place] [phone] September, [facility] [address] [id number] [address] [place] [address], [place] [phone] September, [facility] [address] [id number] [address] [place] [address], [place] [phone] September, [facility] [address] [id number] [address] [place] [address], [place] [phone] Aug, [facility] [address] [id number] [address] [place] [address], [place] [phone] Aug, [facility] [address] [id number] [address] [place] [address], [place] [id number] Jul, [facility] [address] [id number] [address] [place] [id number] 18 Jul, 2014 [facility] [address] [id number] [address] [place] [id number] 16 Jul, 2014 [facility] [address] [id number] [address] [place] [address], [place] [id number] 16 Jul, 2014 [facility] [address] [id number] [address] [place] [id number] 16 Jul, 2014 [facility] [address] [id number] [address] [place] [address], [place] [id number] 16 Jul, 2014 [facility] [address] [id number] [address] [place] [address], [place] [id number] 16 Jul, 2014 [facility] [address] [id number] [address] [place] [address], [place] [id number] 16 Jul, 2014 [facility] [address] [id number] [address] [place] [address], [place] [id number] 16 Jul, 2014 [facility] [address] [id number] [address] [place] [address], [place] [id number] 13 Jul, 2014 [facility] [address] [id number] [address] [place] [address], [place] [id number] 13 Jul, 2014 [facility] [address] [id number] [address] [place] [address], [place] [id number] 09 Jul, 2014 [facility] [address] [id number] [place] [address], [place] [address] 09 Jul, 2014 [facility] [address] [id number] [address] [place] [address], [place] [address] 17 Jul, 2014 [facility] [address] [id number] [address] [place] [address], [place] [address] 17 Jul, 2014 [facility] [address] [id number] [address] [place] [address], [place] [address] 16 Jul, 2014 [facility] [address] [id number] [address] [place] [address], [place] [address] 16 Jul, 2014 [facility] [address] [id number] [address] [place] [address], [place] [address] 16 Jul, 2014 [facility] [address] [id number] [address] [place] [address], [place] [address] 16 Jul, 2014 [facility] [address] [id number] [address] [place] [address], [place] [address] 16 Jul, 2014 [facility] [address] [id number] [address] [place] [address], [place] [address] 16 Jul, 2014 [facility] [address] [id number] [address] [place] [address], [place] [address] Jul, 2014 [facility] [address] [id number] [address] [place] [address], [place] [address] 16 Jul, 2014 [facility] [address] [id number] [address] [place] [address], [place] [address] Jul, 2014 [facility] [address] [id number] [address] [place] [address], [place] [address] Jul, 2014 [facility] [address] [id number] [address] [place] [address], [place] [address] Jul, 2014 [facility] [address] [id number] [address] [place] [address], [place] [address] Jul, 2014 [facility] [address] [id number] [address] [place] [address], [place] [address] Jul, 2014 [facility] [address] [id number] [address] [place] [address], [place] [address] Jul, [facility] [address] [id number] [address] [place] [address], [place] [address] May, [facility] [address] [id number] [address] [place] [address], [place] [address] May, [facility] [address] [id number] [address] [place] [address], [place] [address] May, [facility] [address] [id number] [address] [place] [address], [place] [address] May, [facility] [address] [id number] [address] [place] [address], [place] [address] May, [facility] [address] [id number] [address] [place] [address], [place] [address] May, [facility] [address] [id number] [address] [place] [address] May, [facility] [address] [id number] [address] [place] [address], [place] [address] May, [facility] [address] [id number] [address] [place] [address], [place] [address] May, [facility] [address] [id number] [address] [place] [address], [place] [address] May, [facility] [address] [id number] [address] [place] [address], [place] [address] Apr, [facility] [address] [id number] [address] [place] [address], [place] [address] Apr, [facility] [address] [id number] [address] [place] [address], [place] [address] Apr, [facility] [address] [id number] [address] [place] [address], [place] [address] Apr, [facility] [address] [id number] [address] [place] [address], [place] [address] Apr, [facility] [address] [id number] [address] [place] [address], [place] [address] Apr, [facility] [address] [id number] [address] [place] [address], [place] [address] Mar, [facility] [address] [id number] [address] [place] [address], [place] [address] Mar, [facility] [address] [id number] [address] [place] [address], [place] [address] Mar, [facility] [address] [id number] [address] [place] [address], [place] [address] Mar, [facility] [address] [id number] [address] [place] [address], [place] [address] Mar, [facility] [address] [id number] [address] [place] [address], [place] [address] Mar, [facility] [address] [id number] [address] [place] [address], [place] [address] Mar, [facility] [address] [id number] [address] [place] [address], [place] [address] 17 Mar, 2014 [facility] [address] [id number] [address] [place] [address], [place] [address] Mar, [facility] [address] [id number] [address] [place] [address], [place] [address] Mar, [facility] [address] [id number] [address] [place] [address], [place] [address] Mar, [facility] [address] [id number] [address] [place] [address], [place] [address] Feb, [facility] [address] [id number] [address] [place] [address], [place] [address] Feb, [facility] [address] [id number] [address] [place] [address], [place] [address] Feb, [facility] [address] [id number] [address] [place] [address], [place] [address] Feb, [facility] [address] [id number] [address] [place] [address], [place] [address] Feb, [facility] [address] [id number] [address] [place] [address], [place] [address] Feb, [facility] [address] [id number] [address] [place] [address], [place] [address] Feb, [facility] [address] [id number] [address] [place] [address], [place] [address] Feb, [facility] [address] [id number] [address] [place] [address], [place] [address] Feb, [facility] [address] [id number] [address] [place] [address], [place] [address] Feb, [facility] [address] [id number] [address] [place] [address], [place] [address] Jan, [facility] [address] [id number] [address] [place] [address], [place] [address] 22 Jan, 2013 [facility] [address] [id number] [address] [place] [address], [place] [address] 16 Jan, 2013 [facility] [address] [id number] [address] [place] [address], [place] [address] 16 Jan, 2013 [facility] [address] [id number] [address] [place] [address], [place] [address] 12 Jan, 2014 [facility] [address] [id number] [address] [place] [address], [place] [address] Jan, [facility] [address] [id number] [address] [place] [address], [place] [address] Jan, [facility] [address] [id number] [address] [place] [address], [place] [address] Dec, [facility] [address] [id number] [address] [place] [address], [place] [address] Dec, [facility] [address] [id number] [address] [place] [address], [place] [address] Dec, [facility] [address] [id number] [address] [place] [address], [place] [address] Dec, [facility] [address] [id number] [address] [place] [address], [place] [address] Dec, [facility] [address] [id number] [address] [place] [address], [place] [address] Dec, [facility] [address] [id number] [address] [place] [address], [place] [address] Dec, [facility] [address] [id number] [address] [place] [address], [place] [address] Dec, [facility] [address] [id number] [address] [place] [address], [place] [address] Oct, [facility] [address] [id number] [address] [place] [address], [place] [address] Oct, [facility] [address] [id number] [address] [place] [address], [place] [address] September, [facility] [address] [id number] [address] [place] [address], [place] [address] September, [facility] [address] [id number] [address] [place] [address], [place] [address] September, [facility] [address] [id number] [address] [place] [address], [place] [address] September, [facility] [address] [id number] [address] [place] [address], [place] [address] September, [facility] [address] [id number] [address] [place] [address], [place] [address] September, [facility] [address] [id number] [address] [place] [address], [place] [address] September, [facility] [address] [id number] [address] [place] [address], [place] [address] Aug, [facility] [address] [id number] [address] [place] [address], [place] [address] Aug, [facility] [address] [id number] [address] [place] [address], [place] [address] Jul, [facility] [address] [id number] [address] [place] [address], [place] [address] Jul, [facility] [address] [id number] [address] [place] [address], [place] [address] Jul, [facility] [address] [id number] [address] [place] [address], [place] [address] Jul, [facility] [address] [id number] [address] [place] [address], [place] [address] Jul, [facility] [address] [id number] [address] [place] [address], [place] [address] Jul, [facility] [address] [id number] [address] [place] [address], [place] [address] Jul, [facility] [address] [id number] [address] [place] [address], [place] [address] Jul, [facility] [address] [id number] [address] [place] [address], [place] [address] May, [facility] [address] [id number] [address] [place] [address], [place] [address] May, [facility] [address] [id number] [address] [place] [address], [place] [address] May, [facility] [address] [id number] [address] [place] [address], [place] [address] May, [facility] [address] [id number] [address] [place] [address], [place] [address] Apr, [facility] [address] [id number] [address] [place] [address], [place] [address] Mar, [facility] [address] [id number] [address] [place] [address], [place] [address] Mar, [facility] [address] [id number] [address] [place] [address], [place] [address] Mar, [facility] [address] [id number] [address] [place] [address], [place] [address] Mar, [facility] [address] [id number] [address] [place] [address], [place] [address] Mar, [facility] [address] [id number] [address] [place] [address], [place] [address] Mar, [facility] [address] [id number] [address] [place] [address], [place] [address] Mar, [facility] [address] [id number] [address] [place] [address], [place] [address] Mar, [facility] [address] [id number] [address] [place] [address], [place] [address] Mar, [facility] [address] [id number] [address] [place] [address], [place] [address] Mar, [facility] [address] [id number] [address] [place] [address], [place] [address] Mar, [facility] [address] [id number] [address] [place] [address], [place] [address] Mar, [facility] [address] [id number] [address] [place] [address], [place] [address] Feb, [facility] [address] [id number] [address] [place] [address], [place] [address] Feb, [facility] [address] [id number] [address] [place] [address], [place] [address] Feb, [facility] [address] [id number] [address] [place] [address], [place] [address] Feb, [facility] [address] [id number] [address] [place] [address], [place] [address] Feb, [facility] [address] [id number] [address] [place] [address], [place] [address] Jan, [facility] [address] [id number] [address] [place] [address], [place] [address] Dec, [facility] [address] [id number] [address] [place] [address], [place] [address] Dec, [facility] [address] [id number] [address] [place] [address], [place] [address] Dec, [facility] [address] [id number] [address] [place] [address], [place] [address] Nov, [facility] [address] [id number] [address] [place] [address], [place] [address] Nov, [facility] [address] [id number] [address] [place] [address], [place] [address] Nov, [facility] [address] [id number] [facility] [place] [address] 27 Oct, 2012 [facility] [address] [id number] [address] [place] [address], [place] [address] Oct, [facility] [address] [id number] [address] [place] [address], [place] [address] Oct, [facility] [address] [id number] [address] [place] [address], [place] [address] September, [facility] [address] [id number] [address] [place] [address], [place] [address] September, [facility] [address] [id number] [address] [place] [address], [place] [address] September, [facility] [address] [id number] [address] [place] [address], [place] [address] September, [facility] [address] [id number] [address] [place] [address], [place] [address] September, [facility] [address] [id number] [address] [place] [address], [place] [address] Aug, [facility] [address] [id number] [address] [place] [address], [place] [address] Aug, [facility] [address] [id number] [address] [place] [address], [place] [address] Aug, [facility] [address] [id number] [address] [place] [address], [place] [address] Jul, [facility] [address] [id number] [address] [place] [address], [place] [address] Jul, [facility] [address] [id number] [address] [place] [address], [place] [address] Jul, [facility] [address] [id number] [address] [place] [address], [place] [address] Jul, [facility] [address] [id number] [address] [place] [address], [place] [address] Jul, [facility] [address] [id number] [address] [place] [address], [place] [address] Jul, [facility] [address] [id number] [address] [place] [address], [place] [address] Jul, [facility] [address] [id number] [address] [place] [address], [place] [address] May, [facility] [address] [id number] [address] [place] [address], [place] [address] May, [facility] [address] [id number] [address] [place] [address], [place] [address] May, [facility] [address] [id number] [address] [place] [address], [place] [address] Apr, [facility] [address] [id number] [address] [place] [address], [place] [address] Apr, [facility] [address] [id number] [address] [place] [address], [place] [address] Apr, [facility] [address] [id number] [address] [place] [address], [place] [address] Apr, [facility] [address] [id number] [address] [place] [address], [place] [address] Apr, [facility] [address] [id number] [address] [place] [address], [place] [address] Mar, [facility] [address] [id number] [address] [place] [address], [place] [address] 29 Mar, 2012 [facility] [address] [id number] [address] [place] [address], [place] [address] 15 Mar, 2012 [facility] [address] [id number] [address] [place] [address], [place] [address] 15 Mar, 2012 [facility] [address] [id number] [address] [place] [address], [place] [address] Feb, [facility] [address] [id number] [address] [place] [address], [place] [address] Feb, [facility] [address] [id number] [address] [place] [address], [place] [address] Feb, [facility] [address] [id number] [address] [place] [address], [place] [address] Feb, [facility] [address] [id number] [address] [place] [address], [place] [address] Feb, [facility] [address] [id number] [address] [place] [address], [place] [address] Jan, [facility] [address] [id number] [address] [place] [address], [place] [address] Dec, [facility] [address] [id number] [address] [place] [address], [place] [address] Dec, [facility] [address] [id number] [address] [place] [address], [place] [address] Dec, [facility] [address] [id number] [address] [place] [address], [place] [address] Nov, [facility] [address] [id number] [address] [place] [address], [place] [address] Nov, [facility] [address] [id number] [address] [place] [address], [place] [address] Nov, [facility] [address] [id number] [address] [place] [address], [place] [address] Oct, [facility] [address] [id number] [address] [place] [address], [place] [address] Oct, [facility] [address] [id number] [address] [place] [address], [place] [address] Oct, [facility] [address] [id number] [address] [place] [address], [place] [id number] Oct, [facility] [address] [id number] [address] [place] [address], [place] [id number] September, [facility] [address] [id number] [address] [place] [address], [place] [id number] September, [facility] [address] [id number] [address] [place] [address], [place] [id number] Aug, [facility] [address] [id number] [address] [place] [address], [place] [id number] Aug, [facility] [address] [id number] [address] [place] [address], [place] [id number] Aug, [facility] [address] [id number] [address] [place] [address], [place] [id number] Aug, [facility] [address] [id number] [address] [place] [address], [place] [id number] Aug, [facility] [address] [id number] [address] [place] [address], [place] [id number] Aug, [facility] [address] [id number] [address] [place] [address], [place] [id number] Aug, [facility] [address] [id number] [address] [place] [address], [place] [id number] Jul, [facility] [address] [id number] [address] [place] [address], [place] [id number] Jul, [facility] [address] [id number] [address] [place] [address], [place] [id number] Jul, [facility] [address] [id number] [address] [place] [address], [place] [id number] May, [facility] [address] [id number] [address] [place] [address], [place] [id number] May, [facility] [address] [id number] [address] [place] [address], [place] [id number] May, [facility] [address] [id number] [address] [place] [address], [place] [id number] Apr, [facility] [address] [id number] [address] [place] [id number] Apr, [facility] [address] [id number] [address] [place] [id number] Mar, [facility] [address] [id number] [address] [place] [id number] Mar, [facility] [address] [id number] [address] [place] [id number] Mar, [facility] [address] [id number] [address] [place] [id number] Mar, [facility] [address] [id number] [address] [place] [id number] Mar, [facility] [address] [id number] [address] [place] [id number] Mar, [facility] [address] [id number] [address] [place] [id number] Feb, [facility] [address] [id number] [address] [place] [id number] Feb, [facility] [address] [id number] [address] [place] [id number] Feb, IMMUNIZATIONS No Known Immunizations SOCIAL HISTORY [...] foot infections x 3 2015 Hospitalization History [facility] - right big t oe removed 2018
--- OUTSIDE RECORDS SUMMARY | 2020-01-03 07:43 | XMS REPORT ---
Author Author Tra SILVERIO Organization [facility] Address [address] [place] [address] Care Team Providers Care Dyslexia Teacher Name Role Phone FERNY SILVERIO Unavailable PROBLEMS Type Condition ICD9-CM Code QMK62-LZ Code Onset Dates Condition S tatus SNOMED Code Problem Insulin long-term use Z79.4 Active 990760012 Problem Hypertension I10 Active 3514842 3 Problem Diabetes E11.9 Active 49417181 Problem Hypoxia R09.02 Active 535538627 Problem Anxiety F41.9 Active 61613095 Problem Port catheter in place Z95.828 Active 397015789 Problem Pressure ulcer of other site, stage 3 L89.893 Active 175066977 Problem COPD (chronic obstructive pulmonary disease) J44.9 Active 59170731 Problem Type 2 diabetes mellitus wit h diabetic peripheral angiopathy without gangrene E11.51 Active 172133138 Problem Back pain M54.9 Active 079281407 Problem PAD (peripheral artery disease) I73.9 Active 040249217 Problem Lumbar radiculopathy, chronic M54.16 Active 473916472 Problem Recurrent major depressive disorder, in full remission F33.42 Active 738107440 Problem MCC current use of insulin Z79.4 Active 169988979 ALLERGIES No Information ENCOUNTERS Encounter Location Date Diagnosis [facility] [address] [facility] [id number] [address] [place] [phone] Dec, [facility] [address] [facility] [id number] [address] [place] [phone] Dec, [facility] [address] [facility] [id number] [address] [place] [phone] Nov, Anxiety F41.9 [facility] [address] [facility] [id number] [address] [place] [phone] Nov, [facility] [address] [id number] [address] [place] [id number] 30 Nov, 2018 Back pain M54.9 [facility] [address] [id number] [address] [place] [address], [place] [address] Nov, [facility] [address] [id number] [address] [place] [id number] Nov, Back pain M54.9 [facility] [address] [id number] [address] [place] [address], [place] [address] Nov, Anxiety F41.9 [facility] [address] [id number] [address] [place] [address], [place] [address] Nov, [facility] [address] [id number] [address] [place] [phone] Oct, Back pain M54.9 [facility] [address] [id number] [address] [place] [phone] Oct, [facility] [address] [id number] [address] [place] [phone] Oct, [facility] [address] [id number] [address] [place] [id number] Oct, [facility] [address] [id number] [address] [place] [address] September, Back pain M54.9 [facility] [address] [id number] [address] [place] [phone] September, [facility] [address] [id number] [address] [place] [address] September, [facility] [address] [id number] [address] [place] [phone] September, [facility] [address] [id number] [address] [place] [phone] Aug, Back pain M54.9 [facility] [address] [id number] [address] [place] [phone] Aug, Anxiety F41.9 [facility] [address] [id number] [address] [place] [id number] Aug, [facility] [address] [id number] [address] [place] [phone] Aug, Pressure ulcer of other site , stage 3 L89.893 and COPD (chronic obstructive pulmonary disease) J44.9 [facility] [address] [id number] [address] [place] [address] Aug, History of smoking Z87.891 [facility] [address] [id number] [address] [place] [phone] Jul, Type 2 diabetes mellitus wit h diabetic peripheral angiopathy without gangrene E11.51 [facility] [address] [id number] [address] [place] [address] Jul, Back pain M54.9 [facility] [address] [id number] [address] [place] [id number] Jul, Anxiety F41.9 [facility] [address] [id number] [address] [place] [phone] Jul, [facility] [address] [id number] [address] [place] [phone] Jul, Back pain M54.9 [facility] [address] [id number] [address] [place] [phone] Jul, Back pain M54.9 [facility] [address] [id number] [address] [place] [id number] Jul, Lumbar radiculopathy, chroni c M54.16 ; Hypertension I10 and Type 2 diabetes mellitus with diabetic peripheral angiopathy without gangrene E11.51 [facility] [address] [id number] [address] [place] [address] Jul, Back pain M54.9 [facility] [address] [id number] [address] [place] [phone] Jul, Back pain M54.9 and Anxiety F41.9 [facility] [address] [id number] [address] [place] [address] Jul, [facility] [address] [id number] [address] [place] [phone] May, Back pain M54.9 and Anxiety F41.9 [facility] [address] [facility] [id number] [address] [place] [address] May, [facility] [address] [facility] [id number] [address] [place] [phone] Apr, Radiculopathy of lumbar rhiannon on M54.16 ; Back pain M54.9 and Anxiety F41.9 [facility] [address] [facility] [id number] [address] [place] [address] Apr, Diabetes E11.9 ; Muscle spas m M62.838 and Lumbar radiculopathy, chronic M54.16 [facility] [address] [facility] [id number] [address] [place] [address] Apr, [facility] [address] [facility] [id number] [address] [place] [phone] Apr, [facility] [address] [facility] [id number] [address] [place] [address] Mar, Back pain M54.9 and Anxiety F41.9 [facility] [address] [facility] [id number] [address] [place] [address] Mar, [facility] [address] [id number] [address] [place] [phone] Mar, [facility] [address] [facility] [id number] [address] [place] [phone] Mar, [facility] [address] [facility] [id number] [address] [place] [phone] Mar, Encounter for immunization Z 23 [facility] [address] [id number] [address] [place] [phone] Feb, Back pain M54.9 and Anxiety F41.9 [facility] [address] [id number] [address] [place] [id number] 04 Feb, 2018 Back pain M54.9 and Anxiety F41.9 [facility] [address] [id number] [address] [place] [phone] Jan, Back pain M54.9 and Anxiety F41.9 [facility] [address] [id number] [address] [place] [phone] Jan, [facility] [address] [id number] [address] [place] [phone] Dec, [facility] [address] [id number] [address] [place] [phone] Dec, Back pain M54.9 and Anxiety F41.9 [facility] [address] [id number] [address] [place] [id number] 13 Dec, 2017 Diabetes E11.9 ; Type 2 diab etes mellitus with diabetic peripheral angiopathy without gangrene E11.51 ; Lumbar radiculopathy, chronic M54.16 ; COPD (chronic obstructive pulmonary disease) J44.9 and Anxiety F41.9 [facility] [address] [id number] [address] [place] [phone] Dec, Back pain M54.9 and Anxiety F41.9 [facility] [address] [id number] [address] [place] [address] Nov, Back pain M54.9 and Anxiety F41.9 [facility] [address] [id number] [address] [place] [phone] Oct, [facility] [address] [id number] [address] [place] [id number] 2017 Back pain M54.9 and Anxiety F41.9 [facility] [address] [id number] [address] [place] [address] September, Anxiety F41.9 and Back pain M54.9 [facility] [address] [id number] [address] [place] [phone] September, Diabetes E11.9 ; Hypertensio n I10 ; COPD (chronic obstructive pulmonary disease) J44.9 and Lumbar radiculopathy, chronic M54.16 [facility] [address] [id number] [address] [place] [phone] September, Anxiety F41.9 [facility] [address] [id number] [address] [place] [phone] Aug, [facility] [address] [id number] [address] [place] [phone] Aug, [place] [address] [id number] [address] [place] [phone] Aug, Anxiety F41.9 and Back pain M54.9 [facility] [address] [id number] [address] [place] [address] Aug, Medicare annual wellness vis it, initial [...] and MCC current use of insulin Z79.4 [facility] [address] [id number] [address] [place] [id number] Jul, Back pain M54.9 [facility] [address] [id number] [address] [place] [id number] Jul, [facility] [address] [id number] [address] [place] [phone] Jul, Anxiety F41.9 and Back pain M54.9 [facility] [address] [id number] [address] [place] [id number] Jul, Diabetes E11.9 [facility] [address] [id number] [address] [place] [phone] May, [facility] [address] [id number] [address] [place] [address] May, Diabetes E11.9 ; Anxiety F41 .9 ; Back pain M54.9 and COPD (chronic obstructive pulmonary disease) J44.9 [facility] [address] [id number] [address] [place] [phone] May, Back pain M54.9 [facility] [address] [id number] [address] [place] [phone] May, [facility] [address] [id number] [address] [place] [id number] Apr, Back pain M54.9 [facility] [address] [id number] [address] [place] [phone] Mar, Back pain M54.9 [facility] [address] [id number] [address] [place] [phone] Mar, [facility] [address] [id number] [address] [place] [id number] Mar, [facility] [address] [id number] [address] [place] [phone] 14 Mar, 2017 Radiculopathy of lumbar rhiannon on M54.16 [facility] [address] [id number] [address] [place] [id number] 13 Mar, 2017 [facility] [address] [id number] [address] [place] [phone] 07 Mar, 2017 Encounter for immunization Z 23 and Lumbar radiculopathy, chronic M54.16 [facility] [address] [id number] [address] [place] [id number] Mar, Back pain M54.9 and Anxiety F41.9 [facility] [address] [id number] [address] [place] [phone] Feb, Acute bilateral low back boy n with left-sided sciatica M54.42 and Acute bilateral low back pain with right-sided sciatica M54.41 [facility] [address] [id number] [address] [place] [id number] Feb, [facility] [address] [id number] [address] [place] [id number] Feb, Back pain M54.9 [facility] [address] [id number] [address] [place] [id number] 05 Jan, 2017 Back pain M54.9 and Anxiety F41.9 [facility] [address] [id number] [address] [place] [id number] Jan, Diabetes E11.9 [facility] [address] [id number] [address] [place] [phone] Dec, Diabetes E11.9 ; Back pain M 54.9 ; Anxiety F41.9 and Insulin long- term use Z79.4 [facility] [address] [id number] [address] [place] [phone] Dec, Anxiety F41.9 [facility] [address] [id number] [address] [place] [phone] Dec, Back pain M54.9 [facility] [address] [id number] [address] [place] [phone] Nov, Back pain M54.9 [facility] [address] [id number] [address] [place] [phone] Oct, Back pain M54.9 and Anxiety F41.9 [facility] [address] [id number] [address] [place] [id number] September, Back pain M54.9 [facility] [address] [id number] [address] [place] [phone] September, Back pain M54.9 and Anxiety F41.9 [facility] [address] [id number] [address] [place] [phone] Aug, Diabetes E11.9 ; Anxiety F41 .9 ; Back pain M54.9 and PAD (peripheral artery disease) I73.9 [facility] [address] [id number] [address] [place] [phone] Aug, Anxiety F41.9 [facility] [address] [id number] [address] [place] [phone] Aug, Back pain M54.9 [facility] [address] [id number] [address] [place] [phone] Jul, Back pain M54.9 [facility] [address] [id number] [address] [place] [address] Jul, Back pain M54.9 [facility] [address] [id number] [address] [place] [phone] Jul, Back pain M54.9 [facility] [address] [id number] [address] [place] [address] Jul, Dorsalgia M54.9 [facility] [address] [id number] [address] [place] [phone] Jul, [facility] [address] [id number] [address] [place] [address] May, Back pain M54.9 [facility] [address] [id number] [address] [place] [address] May, Diabetes E11.9 ; Anxiety F41 .9 ; Port catheter in place Z95.828 ; Encounter for immunization Z23 and Insulin long-term use Z79.4 [facility] [address] [id number] [address] [place] [address] Apr, Back pain M54.9 [facility] [address] [id number] [address] [place] [address] Apr, Back pain M54.9 [facility] [address] [id number] [address] [place] [id number] Apr, [facility] [address] [id number] [address] [place] [phone] Apr, Back pain M54.9 [facility] [address] [id number] [address] [place] [address] Mar, COPD (chronic obstructive pu lmonary disease) J44.9 [facility] [address] [id number] [address] [place] [phone] Feb, [facility] [address] [id number] [address] [place] [phone] 30 Jan, 2016 [facility] [address] [id number] [address] [place] [phone] Jan, [facility] [address] [id number] [address] [place] [id number] Jan, [facility] [address] [id number] [address] [place] [phone] Jan, [facility] [address] [id number] [address] [place] [address] Dec, Diabetes E11.9 ; Hypoxia R09 .02 and Back pain M54.9 [facility] [address] [id number] [address] [place] [address] Dec, [facility] [address] [id number] [address] [place] [phone] Nov, [facility] [address] [id number] [address] [place] [phone] Oct, Anxiety F41.9 [facility] [address] [id number] [address] [place] [phone] Oct, Back pain M54.9 [facility] [address] [facility] [id number] [address] [place] [phone] September, Back pain M54.9 [facility] [address] [facility] [id number] [address] [place] [phone] September, Diabetes E11.9 [facility] [address] [facility] [id number] [address] [place] [phone] September, [facility] [address] [facility] [id number] [address] [place] [id number] September, Diabetes E11.9 ; Insulin sarai g-term use Z79.4 and Back pain M54.9 [facility] [address] [facility] [id number] [address] [place] [phone] Aug, Back pain M54.9 [facility] [address] [facility] [id number] [address] [place] [address] Aug, Back pain M54.9 ; Anxiety F4 1.9 and Arthropathy, unspecified M12.9 [facility] [address] [facility] [id number] [address] [place] [phone] Jul, Back pain M54.9 [facility] [address] [facility] [id number] [address] [place] [phone] Jul, Anxiety F41.9 [facility] [address] [facility] [id number] [address] [place] [address] Jul, Back pain M54.9 [facility] [address] [facility] [id number] [address] [place] [address] Jul, [facility] [address] [facility] [id number] [address] [place] [phone] Jul, [facility] [address] [facility] [id number] [address] [place] [id number] May, Back pain M54.9 ; Diabetes E 11.9 ; Insulin long-term use Z79.4 ; COPD (chronic obstructive pulmonary disease) J44.9 and Hypertension I10 [facility] [address] [id number] [address] [place] [phone] May, Chronic pain G89.29 [facility] [address] [id number] [address] [place] [id number] Apr, [facility] [address] [facility] [id number] [address] [place] [phone] Apr, [facility] [address] [id number] [address] [place] [phone] Mar, [facility] [address] [id number] [address] [place] [phone] Mar, Encounter for immunization Z 23 and Diabetes E11.9 [facility] [address] [id number] [address] [place] [phone] Feb, [facility] [address] [facility] [id number] [address] [place] [phone] Feb, [facility] [address] [facility] [id number] [address] [place] [phone] Jan, [facility] [address] [id number] [address] [place] [phone] Jan, [facility] [address] [facility] [id number] [address] [place] [phone] Dec, [facility] [address] [facility] [id number] [address] [place] [phone] Dec, [facility] [address] [facility] [id number] [address] [place] [id number] Dec, Unspecified arthropathy, sit e unspecified 716.90 and Diabetes mellitus type 2, uncontrolled 250.02 [facility] [address] [id number] [address] [place] [phone] Dec, [facility] [address] [facility] [id number] [address] [place] [phone] Nov, [facility] [address] [facility] [id number] [address] [place] [id number] 08 Oct, 2014 [facility] [address] [id number] [address] [place] [address], [place] [address] September, [facility] [address] [id number] [address] [place] [address], [place] [address] September, [facility] [address] [id number] [address] [place] [address], [place] [address] September, [facility] [address] [id number] [address] [place] [address], [place] [address] September, [facility] [address] [id number] [address] [place] [address], [place] [phone] 14 Aug, 2014 [facility] [address] [id number] [address] [place] [address], [place] [address] Aug, [facility] [address] [id number] [address] [place] [address], [place] [address] 18 Jul, 2014 [facility] [address] [id number] [address] [place] [address], [place] [id number] 18 Jul, 2014 [facility] [address] [id number] [address] [place] [address], [place] [address] 16 Jul, 2014 [facility] [address] [id number] [address] [place] [address], [place] [address] 16 Jul, 2014 [facility] [address] [id number] [address] [place] [address], [place] [id number] 16 Jul, 2014 [facility] [address] [id number] [address] [place] [address], [place] [address] 16 Jul, 2014 [facility] [address] [id number] [address] [place] [address], [place] [address] 16 Jul, 2014 [facility] [address] [id number] [address] [place] [address], [place] [address] 16 Jul, 2014 [facility] [address] [id number] [address] [place] [address], [place] [address] 16 Jul, 2014 [facility] [address] [id number] [address] [place] [address], [place] [address] 13 Jul, 2014 [facility] [address] [id number] [address] [place] [address], [place] [address] 13 Jul, 2014 [facility] [address] [id number] [address] [place] [address], [place] [address] 09 Jul, 2014 [facility] [address] [id number] [address] [place] [address], [place] [id number] 09 Jul, 2014 [facility] [address] [id number] [address] [place] [address], [place] [address] 17 Jul, 2014 [facility] [address] [id number] [address] [place] [address], [place] [address] 17 Jul, 2014 [facility] [address] [id number] [address] [place] [address], [place] [address] 16 Jul, 2014 [facility] [address] [id number] [address] [place] [place] [address], [place] [address] 16 Jul, 2014 [facility] [address] [id number] [address] [place] [address], [place] [address] 16 Jul, 2014 [facility] [address] [id number] [address] [place] [address], [place] [address] 16 Jul, 2014 [facility] [address] [id number] [address] [place] [address], [place] [address] 16 Jul, 2014 [facility] [address] [id number] [address] [place] [address] 16 Jul, 2014 [facility] [address] [id number] [address] [place] [address], [place] [address] 16 Jul, 2014 [facility] [address] [id number] [address] [place] [address], [place] [address] 16 Jul, 2014 [facility] [address] [id number] [address] [place] [address] 16 Jul, 2014 [facility] [address] [id number] [address] [place] [address] Jul, [facility] [address] [id number] [address] [place] [address], [place] [address] Jul, [facility] [address] [id number] [address] [place] [address], [place] [address] Jul, [facility] [address] [id number] [address] [place] [address], [place] [address] Jul, [facility] [address] [id number] [address] [place] [address], [place] [address] Jul, [facility] [address] [id number] [address] [place] [address], [place] [address] May, [facility] [address] [id number] [address] [place] [address], [place] [address] May, [facility] [address] [id number] [address] [place] [address], [place] [address] May, [facility] [address] [id number] [address] [place] [address], [place] [address] May, [facility] [address] [id number] [address] [place] [address], [place] [address] May, [facility] [address] [id number] [address] [place] [address], [place] [address] May, [facility] [address] [id number] [address] [place] [address], [place] [address] May, [facility] [address] [id number] [address] [place] [address], [place] [address] May, [facility] [address] [id number] [address] [place] [address], [place] [address] May, [facility] [address] [id number] [address] [place] [address], [place] [address] May, [facility] [address] [id number] [address] [place] [address], [place] [address] Apr, [facility] [address] [id number] [address] [place] [address], [place] [address] Apr, [facility] [address] [id number] [address] [place] [address], [place] [address] Apr, [facility] [address] [id number] [address] [place] [address], [place] [address] Apr, [facility] [address] [id number] [address] [place] [address], [place] [address] Apr, [facility] [address] [id number] [address] [place] [address], [place] [address] Apr, [facility] [address] [id number] [address] [place] [address], [place] [address] Mar, [facility] [address] [id number] [address] [place] [address], [place] [address] Mar, [facility] [address] [id number] [address] [place] [address], [place] [address] Mar, [facility] [address] [id number] [address] [place] [address], [place] [address] Mar, [facility] [address] [id number] [address] [place] [address], [place] [address] Mar, [facility] [address] [id number] [address] [place] [address], [place] [address] Mar, [facility] [address] [id number] [address] [place] [address], [place] [address] Mar, [facility] [address] [id number] [address] [place] [address], [place] [address] Mar, [facility] [address] [id number] [address] [place] [address], [place] [address] Mar, [facility] [address] [id number] [address] [place] [address], [place] [address] Mar, [facility] [address] [id number] [address] [place] [address] Mar, [facility] [address] [id number] [address] [place] [address], [place] [address] Feb, [facility] [address] [id number] [address] [place] [address], [place] [address] Feb, [facility] [address] [id number] [address] [place] [address], [place] [address] Feb, [facility] [address] [id number] [address] [place] [address], [place] [address] Feb, [facility] [address] [id number] [address] [place] [address], [place] [address] Feb, [facility] [address] [id number] [address] [place] [address], [place] [address] Feb, [facility] [address] [id number] [address] [place] [address], [place] [address] Feb, [facility] [address] [id number] [address] [place] [address], [place] [address] Feb, [facility] [address] [id number] [address] [place] [address], [place] [address] Feb, [facility] [address] [id number] [address] [place] [address], [place] [address] Feb, [facility] [address] [id number] [address] [place] [address], [place] [address] 22 Jan, 2014 [facility] [address] [id number] [address] [place] [address], [place] [address] 22 Jan, 2013 [facility] [address] [id number] [address] [place] [address], [place] [address] 16 Jan, 2013 [facility] [address] [id number] [address] [place] [address], [place] [address] 16 Jan, 2013 [facility] [address] [id number] [address] [place] [address], [place] [address] 12 Jan, 2013 [facility] [address] [id number] [facility] [place] [address] Jan, [facility] [address] [id number] [address] [place] [address], [place] [address] Jan, [facility] [address] [id number] [address] [place] [address], [place] [address] Dec, [facility] [address] [id number] [address] [place] [address], [place] [address] Dec, [facility] [address] [id number] [address] [place] [address], [place] [address] Dec, [facility] [address] [id number] [address] [place] [address], [place] [address] Dec, [facility] [address] [id number] [address] [place] [address], [place] [address] Dec, [facility] [address] [id number] [address] [place] [address], [place] [address] Dec, [facility] [address] [id number] [address] [place] [address], [place] [address] Dec, [facility] [address] [id number] [address] [place] [address], [place] [address] Dec, [facility] [address] [id number] [address] [place] [address], [place] [address] Oct, [facility] [address] [id number] [address] [place] [address], [place] [address] Oct, [facility] [address] [id number] [address] [place] [address], [place] [address] September, [facility] [address] [id number] [address] [place] [address], [place] [address] September, [facility] [address] [id number] [address] [place] [address], [place] [address] September, [facility] [address] [id number] [address] [place] [address], [place] [address] September, [facility] [address] [id number] [address] [place] [address], [place] [address] September, [facility] [address] [id number] [address] [place] [address], [place] [address] September, [facility] [address] [id number] [address] [place] [address], [place] [address] September, [facility] [address] [id number] [address] [place] [address], [place] [address] Aug, [facility] [address] [id number] [address] [place] [address], [place] [address] Aug, [facility] [address] [id number] [address] [place] [address], [place] [address] Jul, [facility] [address] [id number] [address] [place] [address], [place] [address] Jul, [facility] [address] [id number] [address] [place] [address], [place] [address] Jul, [facility] [address] [id number] [address] [place] [address], [place] [address] Jul, [facility] [address] [id number] [address] [place] [address], [place] [address] Jul, [facility] [address] [id number] [address] [place] [address], [place] [address] Jul, [facility] [address] [id number] [address] [place] [address], [place] [address] Jul, [facility] [address] [id number] [address] [place] [address], [place] [address] Jul, [facility] [address] [id number] [address] [place] [address], [place] [address] May, [facility] [address] [id number] [address] [place] [address], [place] [address] May, [facility] [address] [id number] [address] [place] [address], [place] [address] 14 May, 2013 [facility] [address] [id number] [address] [place] [address], [place] [address] 14 May, 2013 [facility] [address] [id number] [address] [place] [address], [place] [address] 18 Apr, 2013 [facility] [address] [id number] [address] [place] [address], [place] [address] 20 Mar, 2013 [facility] [address] [id number] [address] [place] [address], [place] [address] Mar, [facility] [address] [id number] [address] [place] [address], [place] [address] Mar, [facility] [address] [id number] [address] [place] [address], [place] [address] Mar, [facility] [address] [id number] [address] [place] [address], [place] [address] 18 Mar, 2013 [facility] [address] [id number] [address] [place] [address], [place] [address] 18 Mar, 2013 [facility] [address] [id number] [address] [place] [address], [place] [address] 18 Mar, 2013 [facility] [address] [id number] [address] [place] [address], [place] [address] 18 Mar, 2013 [facility] [address] [id number] [address] [place] [address], [place] [address] Mar, [facility] [address] [id number] [address] [place] [address], [place] [address] 11 Mar, 2013 [facility] [address] [id number] [address] [place] [address], [place] [address] 04 Mar, 2013 [facility] [address] [id number] [address] [place] [address], [place] [address] 04 Mar, 2013 [facility] [address] [id number] [address] [place] [address], [place] [address] 15 Feb, 2013 [facility] [address] [id number] [address] [place] [address], [place] [address] 15 Feb, 2013 [facility] [address] [id number] [address] [place] [address], [place] [address] Feb, [facility] [address] [id number] [address] [place] [address], [place] [address] Feb, [facility] [address] [id number] [address] [place] [address], [place] [address] Feb, [facility] [address] [id number] [address] [place] [address], [place] [address] Jan, [facility] [address] [id number] [address] [place] [address], [place] [address] Dec, [facility] [address] [id number] [address] [place] [address], [place] [address] Dec, [facility] [address] [id number] [address] [place] [address], [place] [address] Dec, [facility] [address] [id number] [address] [place] [address], [place] [address] Nov, [facility] [address] [id number] [address] [place] [address], [place] [address] Nov, [facility] [address] [id number] [address] [place] [address], [place] [address] Nov, [facility] [address] [id number] [address] [place] [address], [place] [address] Oct, [facility] [address] [id number] [address] [place] [address], [place] [address] Oct, [facility] [address] [id number] [address] [place] [address], [place] [address] Oct, [facility] [address] [id number] [address] [place] [address], [place] [address] September, [facility] [address] [id number] [address] [place] [address] [place] [address] September, [facility] [address] [id number] [address] [place] [address], [place] [address] September, [facility] [address] [id number] [address] [place] [address], [place] [address] September, [facility] [address] [id number] [address] [place] [address], [place] [address] September, [facility] [address] [id number] [address] [place] [address], [place] [address] Aug, [facility] [address] [id number] [address] [place] [address], [place] [address] Aug, [facility] [address] [id number] [address] [place] [address], [place] [address] Aug, [facility] [address] [id number] [address] [place] [address], [place] [address] Jul, [facility] [address] [id number] [address] [place] [address], [place] [address] Jul, [facility] [address] [id number] [address] [place] [address], [place] [address] Jul, [facility] [address] [id number] [address] [place] [address], [place] [address] Jul, [facility] [address] [id number] [address] [place] [address], [place] [address] Jul, [facility] [address] [id number] [address] [place] [address], [place] [address] Jul, [facility] [address] [id number] [address] [place] [address], [place] [address] Jul, [facility] [address] [id number] [address] [place] [address], [place] [address] May, [facility] [address] [id number] [address] [place] [address], [place] [address] May, [facility] [address] [id number] [address] [place] [address], [place] [address] May, [facility] [address] [id number] [address] [place] [address], [place] [address] Apr, [facility] [address] [id number] [address] [place] [address], [place] [address] Apr, [facility] [address] [id number] [address] [place] [address], [place] [address] Apr, [facility] [address] [id number] [address] [place] [address], [place] [address] Apr, [facility] [address] [id number] [address] [place] [address], [place] [address] Apr, [facility] [address] [id number] [address] [place] [address], [place] [address] Mar, [facility] [address] [id number] [address] [place] [address], [place] [address] Mar, [facility] [address] [id number] [address] [place] [address], [place] [address] Mar, [facility] [address] [id number] [address] [place] [address], [place] [address] Mar, [facility] [address] [id number] [address] [place] [address], [place] [address] Feb, [facility] [address] [id number] [address] [place] [address], [place] [address] Feb, [facility] [address] [id number] [address] [place] [address], [place] [address] Feb, [facility] [address] [id number] [address] [place] [address], [place] [address] Feb, [facility] [address] [id number] [address] [place] [address], [place] [address] Feb, [facility] [address] [id number] [address] [place] [address], [place] [address] Jan, [facility] [address] [id number] [address] [place] [address], [place] [address] Dec, [facility] [address] [id number] [address] [place] [address], [place] [address] Dec, [facility] [address] [id number] [address] [place] [address], [place] [address] Dec, [facility] [address] [id number] [address] [place] [address], [place] [address] Nov, [facility] [address] [id number] [address] [place] [address], [place] [address] Nov, [facility] [address] [id number] [address] [place] [address], [place] [address] Nov, [facility] [address] [id number] [address] [place] [address], [place] [address] Oct, [facility] [address] [id number] [address] [place] [address], [place] [address] Oct, [facility] [address] [id number] [address] [place] [address], [place] [address] Oct, [facility] [address] [id number] [address] [place] [address], [place] [address] Oct, [facility] [address] [id number] [address] [place] [address], [place] [address] September, [facility] [address] [id number] [address] [place] [address], [place] [address] September, [facility] [address] [id number] [address] [place] [address], [place] [address] 30 Aug, 2011 [facility] [address] [id number] [address] [place] [address], [place] [address] 23 Aug, 2011 [facility] [address] [id number] [address] [place] [address], [place] [address] Aug, [facility] [address] [id number] [address] [place] [address], [place] [address] Aug, [facility] [address] [id number] [address] [place] [address], [place] [address] Aug, [facility] [address] [id number] [address] [place] [address], [place] [address] Aug, [facility] [address] [id number] [address] [place] [address], [place] [address] Aug, [facility] [address] [id number] [address] [place] [address], [place] [address] Jul, [facility] [address] [id number] [address] [place] [address], [place] [address] Jul, [facility] [address] [id number] [address] [place] [address], [place] [address] Jul, [facility] [address] [id number] [address] [place] [address], [place] [address] May, [facility] [address] [id number] [address] [place] [address], [place] [address] May, [facility] [address] [id number] [address] [place] [address], [place] [address] May, [facility] [address] [id number] [address] [place] [address], [place] [address] Apr, [facility] [address] [id number] [address] [place] [address], [place] [address] Apr, [facility] [address] [id number] [address] [place] [address], [place] [address] Mar, [facility] [address] [id number] [address] [place] [address], [place] [address] Mar, [facility] [address] [id number] [address] [place] [address], [place] [address] Mar, [facility] [address] [id number] [address] [place] [address], [place] [address] Mar, [facility] [address] [facility] [id number] [address] [place] [id number] Mar, [facility] [address] [facility] [id number] [address] [place] [id number] Mar, [facility] [address] [facility] [id number] [address] [place] [id number] Feb, [facility] [address] [facility] [id number] [address] [place] [id number] Feb, [facility] [address] [facility] [id number] [address] [place] [id number] Feb, IMMUNIZATIONS No Known Immunizations SOCIAL HISTORY Never Assessed REASON FOR VISIT PLAN OF CARE VITAL SIGNS Height 72 in 2014-02-19 Weight 264 lbs 2014-02-19 Temperature 98 degrees Fahrenheit 2014-02-19 Heart Rate 70 bpm 2014-02-19 Respiratory Rate 18 2014-02-19 Blood pressure systolic 140 mmHg 2014-02-19 Blood pressure diastolic 78 mmHg 2014-02-19 MEDICATIONS Unknown Medications RESULTS No Results PROCEDURES [...]
--- OUTSIDE RECORDS SUMMARY | 2020-01-03 07:43 | XMS REPORT ---
Author Author Tra SILVERIO Organization [facility] Address [address] [place] [address] Care Team Providers Care Senior Client Advisor Name Role Phone FERNY SILVERIO Unavailable PROBLEMS Type Condition ICD9-CM Code IUQ67-SA Code Onset Dates Condition S tatus SNOMED Code Problem Insulin long-term use Z79.4 Active 831068275 Problem Hypertension I10 Active 9277450 3 Problem Diabetes E11.9 Active 11933568 Problem Hypoxia R09.02 Active 981610380 Problem Anxiety F41.9 Active 56010156 Problem Port catheter in place Z95.828 Active 833259549 Problem Pressure ulcer of other site, stage 3 L89.893 Active 470993317 Problem COPD (chronic obstructive pulmonary disease) J44.9 Active 30987907 Problem Type 2 diabetes mellitus wit h diabetic peripheral angiopathy without gangrene E11.51 Active 354155775 Problem Back pain M54.9 Active 993879031 Problem PAD (peripheral artery disease) I73.9 Active 325633121 Problem Lumbar radiculopathy, chronic M54.16 Active 615629842 Problem Recurrent major depressive disorder, in full remission F33.42 Active 483616323 Problem 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.4 Active 561322329 ALLERGIES No Information ENCOUNTERS Encounter Location Date Diagnosis [facility] [address] [facility] [id number] [address] [place] [address] Dec, Acute non-recurrent frontal sinusitis J01.10 [facility] [address] [facility] [id number] [address] [place] [address] Dec, Acute non-recurrent frontal sinusitis J01.10 [facility] [address] [facility] [id number] [address] [place] [address] Dec, Type 2 diabetes mellitus wit h diabetic peripheral angiopathy without gangrene E11.51 ; Lumbar radiculopathy, chronic M54.16 ; Recurrent major depressive disorder, in full remission F33.42 and Anxiety F41.9 [facility] [address] [id number] [address] [place] [address] Dec, [facility] [address] [id number] [address] [place] [address] Nov, Anxiety F41.9 [facility] [address] [id number] [address] [place] [address] Nov, [facility] [address] [id number] [address] [place] [address] Nov, Back pain M54.9 [facility] [address] [id number] [address] [place] [address] Nov, [facility] [address] [id number] [address] [place] [address] Nov, Back pain M54.9 [facility] [address] [id number] [address] [place] [address] Nov, Anxiety F41.9 [facility] [address] [id number] [address] [place] [address] Nov, [facility] [address] [id number] [address] [place] [address] Oct, Back pain M54.9 [facility] [address] [id number] [address] [place] [address] Oct, [facility] [address] [id number] [address] [place] [address] Oct, [facility] [address] [id number] [address] [place] [address] Oct, [facility] [address] [id number] [address] [place] [address] September, Back pain M54.9 [facility] [address] [id number] [address] [place] [address] September, [facility] [address] [id number] [address] [place] [address] September, [facility] [address] [id number] [address] [place] [address] September, [facility] [address] [id number] [address] [place] [address] Aug, Back pain M54.9 [facility] [address] [id number] [address] [place] [address] Aug, Anxiety F41.9 [facility] [address] [id number] [address] [place] [address] Aug, [facility] [address] [facility] [id number] [address] [place] [address] Aug, Pressure ulcer of other site , stage 3 L89.893 and COPD (chronic obstructive pulmonary disease) J44.9 [facility] [address] [id number] [address] [place] [address] Aug, History of smoking Z87.891 [facility] [address] [facility] [id number] [address] [place] [address] Jul, Type 2 diabetes mellitus wit h diabetic peripheral angiopathy without gangrene E11.51 [facility] [address] [facility] [id number] [address] [place] [address] Jul, Back pain M54.9 [facility] [address] [id number] [address] [place] [address] Jul, Anxiety F41.9 [facility] [address] [id number] [address] [place] [address] Jul, [facility] [address] [facility] [id number] [address] [place] [address] Jul, Back pain M54.9 [facility] [address] [facility] [id number] [address] [place] [address] Jul, Back pain M54.9 [facility] [address] [id number] [address] [place] [address] Jul, Lumbar radiculopathy, chroni c M54.16 ; Hypertension I10 and Type 2 diabetes mellitus with diabetic peripheral angiopathy without gangrene E11.51 [facility] [address] [id number] [address] [place] [address] Jul, Back pain M54.9 [facility] [address] [id number] [address] [place] [address] Jul, Back pain M54.9 and Anxiety F41.9 [facility] [address] [id number] [address] [place] [address] Jul, [facility] [address] [id number] [address] [place] [address] May, Back pain M54.9 and Anxiety F41.9 [facility] [address] [id number] [address] [place] [address] May, [facility] [address] [id number] [address] [place] [address] Apr, Radiculopathy of lumbar rhiannon on M54.16 ; Back pain M54.9 and Anxiety F41.9 [facility] [address] [id number] [address] [place] [address] Apr, Diabetes E11.9 ; Muscle spas m M62.838 and Lumbar radiculopathy, chronic M54.16 [facility] [address] [id number] [address] [place] [address] Apr, [facility] [address] [id number] [address] [place] [address] Apr, [facility] [address] [id number] [address] [place] [address] Mar, Back pain M54.9 and Anxiety F41.9 [place] [address] [id number] [address] [place] [address] Mar, [facility] [address] [id number] [address] [place] [address] Mar, [facility] [address] [id number] [address] [place] [address] Mar, [facility] [address] [id number] [address] [place] [address] Mar, Encounter for immunization Z 23 [facility] [address] [id number] [address] [place] [address] Feb, Back pain M54.9 and Anxiety F41.9 [facility] [address] [id number] [address] [place] [address] Feb, Back pain M54.9 and Anxiety F41.9 [facility] [address] [id number] [address] [place] [address] Jan, Back pain M54.9 and Anxiety F41.9 [facility] [address] [id number] [address] [place] [address] Jan, [facility] [address] [id number] [address] [place] [address] Dec, [facility] [address] [id number] [address] [place] [address] Dec, Back pain M54.9 and Anxiety F41.9 [facility] [address] [id number] [address] [place] [address] 13 Dec, 2017 Diabetes E11.9 ; Type 2 diab etes mellitus with diabetic peripheral angiopathy without gangrene E11.51 ; Lumbar radiculopathy, chronic M54.16 ; COPD (chronic obstructive pulmonary disease) J44.9 and Anxiety F41.9 [facility] [address] [id number] [address] [place] [address] 09 Dec, 2017 Back pain M54.9 and Anxiety F41.9 [facility] [address] [id number] [address] [place] [address] Nov, Back pain M54.9 and Anxiety F41.9 [facility] [address] [id number] [address] [place] [address] Oct, [facility] [address] [id number] [address] [place] [address] Oct, Back pain M54.9 and Anxiety F41.9 [facility] [address] [id number] [address] [place] [address] September, Anxiety F41.9 and Back pain M54.9 [place] [address] [id number] [address] [place] [address] September, Diabetes E11.9 ; Hypertensio n I10 ; COPD (chronic obstructive pulmonary disease) J44.9 and Lumbar radiculopathy, chronic M54.16 [place] [address] [id number] [address] [place] [address] September, Anxiety F41.9 [place] [address] [id number] [address] [place] [address] Aug, [facility] [address] [id number] [address] [place] [address] Aug, [facility] [address] [id number] [address] [place] [address] Aug, Anxiety F41.9 and Back pain M54.9 [facility] [address] [id number] [address] [place] [address] Aug, Medicare annual wellness vis it, initial Z00.00 ; COPD (chronic obstructive pulmonary disease) J44.9 ; PAD (peripheral artery disease) I73.9 ; Insulin long-term use Z79.4 ; Hypertension I10 ; Anxiety F41.9 ; Recurrent major depressive disorder, in full remission F33.42 ; Pressure ulcer of other site, stage 3 L89.893 ; Type 2 diabetes mellitus with diabetic peripheral angiopathy without gangrene E11.51 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 [facility] [address] [id number] [address] [place] [address] Jul, Back pain M54.9 [facility] [address] [id number] [address] [place] [address] Jul, [facility] [address] [id number] [address] [place] [address] Jul, Anxiety F41.9 and Back pain M54.9 [facility] [address] [id number] [address] [place] [address] Jul, Diabetes E11.9 [facility] [address] [id number] [address] [place] [address] May, [facility] [address] [id number] [address] [place] [address] May, Diabetes E11.9 ; Anxiety F41 .9 ; Back pain M54.9 and COPD (chronic obstructive pulmonary disease) J44.9 [facility] [address] [id number] [address] [place] [address] May, Back pain M54.9 [facility] [address] [id number] [address] [place] [address] May, [facility] [address] [id number] [address] [place] [address] Apr, Back pain M54.9 [facility] [address] [id number] [address] [place] [address] Mar, Back pain M54.9 [facility] [address] [id number] [address] [place] [address] Mar, [facility] [address] [id number] [address] [place] [address] 16 Mar, 2017 [facility] [address] [id number] [address] [place] [address] 14 Mar, 2017 Radiculopathy of lumbar rhiannon on M54.16 [facility] [address] [id number] [address] [place] [address] 13 Mar, 2017 [facility] [address] [facility] [id number] [address] [place] [address] 07 Mar, 2017 Encounter for immunization Z 23 and Lumbar radiculopathy, chronic M54.16 [facility] [address] [facility] [id number] [address] [place] [address] Mar, Back pain M54.9 and Anxiety F41.[address] [facility] [address] [facility] [id number] [address] [place] [address] 10 Feb, 2017 Acute bilateral low back boy n with left-sided sciatica M54.42 and Acute bilateral low back pain with right-sided sciatica M54.41 [place] [id number] [place] [address] Feb, [place] [address] [facility] [id number] [address] [place] [address] Feb, Back pain M54.9 [place] [address] [place] [id number] [address] [place] [id number] 05 Jan, 2017 Back pain M54.9 and Anxiety F41.9 [place] [address] [place] [id number] [address] [place] [address] 05 Jan, 2017 Diabetes E11.9 [place] [address] [place] [id number] [address] [place] [address] 14 Dec, 2016 Diabetes E11.9 ; Back pain M 54.9 ; Anxiety F41.9 and Insulin long- term use Z79.4 [place] [address] [facility] [id number] [address] [place] [address] Dec, Anxiety F41.9 [place] [address] [place] [id number] [address] [place] [address] Dec, Back pain M54.9 [place] [address] [id number] [address] [place] [address] Nov, Back pain M54.9 [facility] [address] [id number] [address] [place] [address] Oct, Back pain M54.9 and Anxiety F41.9 [facility] [address] [id number] [address] [place] [address] September, Back pain M54.9 [facility] [address] [id number] [address] [place] [address] September, Back pain M54.9 and Anxiety F41.9 [facility] [address] [id number] [address] [place] [address] Aug, Diabetes E11.9 ; Anxiety F41 .9 ; Back pain M54.9 and PAD (peripheral artery disease) I73.9 [facility] [address] [id number] [address] [place] [address] Aug, Anxiety F41.9 [facility] [address] [id number] [address] [place] [address] Aug, Back pain M54.9 [facility] [address] [facility] [id number] [address] [place] [address] 23 Jul, 2016 Back pain M54.9 [facility] [address] [id number] [address] [place] [address] Jul, Back pain M54.9 [facility] [address] [id number] [address] [place] [address] 23 Jul, 2016 Back pain M54.9 [facility] [address] [id number] [address] [place] [address] 16 Jul, 2016 Dorsalgia M54.9 [facility] [address] [id number] [address] [place] [address] 14 Jul, 2016 [facility] [address] [id number] [address] [place] [address] May, Back pain M54.9 [facility] [address] [id number] [address] [place] [address] May, Diabetes E11.9 ; Anxiety F41 .9 ; Port catheter in place Z95.828 ; Encounter for immunization Z23 and Insulin long-term use Z79.4 [facility] [address] [id number] [address] [place] [address] Apr, Back pain M54.9 [facility] [address] [id number] [address] [place] [address] Apr, Back pain M54.9 [facility] [address] [id number] [address] [place] [address] Apr, [facility] [address] [id number] [address] [place] [address] Apr, Back pain M54.9 [facility] [address] [id number] [address] [place] [address] Mar, COPD (chronic obstructive pu lmonary disease) J44.9 [facility] [address] [id number] [address] [place] [address] Feb, [facility] [address] [id number] [address] [place] [address] Jan, [facility] [address] [id number] [address] [place] [address] Jan, [facility] [address] [id number] [address] [place] [address] Jan, [facility] [address] [id number] [address] [place] [address] Jan, [facility] [address] [id number] [address] [place] [address] Dec, Diabetes E11.9 ; Hypoxia R09 .02 and Back pain M54.9 [facility] [address] [id number] [address] [place] [address] Dec, [facility] [address] [id number] [address] [place] [address] Nov, [facility] [address] [id number] [address] [place] [address] Oct, Anxiety F41.9 [facility] [address] [id number] [address] [place] [address] Oct, Back pain M54.9 [facility] [address] [id number] [address] [place] [address] September, Back pain M54.9 [facility] [address] [facility] [id number] [address] [place] [address] September, Diabetes E11.9 [facility] [address] [facility] [id number] [address] [place] [address] September, [facility] [address] [facility] [id number] [address] [place] [address] September, Diabetes E11.9 ; Insulin sarai g-term use Z79.4 and Back pain M54.9 [facility] [address] [facility] [id number] [address] [place] [address] Aug, Back pain M54.9 [facility] [address] [facility] [id number] [address] [place] [address] Aug, Back pain M54.9 ; Anxiety F4 1.9 and Arthropathy, unspecified M12.9 [facility] [address] [id number] [address] [place] [address] Jul, Back pain M54.9 [facility] [address] [facility] [id number] [address] [place] [address] Jul, Anxiety F41.9 [facility] [address] [facility] [id number] [address] [place] [address] Jul, Back pain M54.9 [facility] [address] [facility] [id number] [address] [place] [address] 17 Jul, 2015 [facility] [address] [facility] [id number] [address] [place] [address] Jul, [facility] [address] [facility] [id number] [address] [place] [address] May, Back pain M54.9 ; Diabetes E 11.9 ; Insulin long-term use Z79.4 ; COPD (chronic obstructive pulmonary disease) J44.9 and Hypertension I10 [facility] [address] [facility] [id number] [address] [place] [address] May, Chronic pain G89.29 [facility] [address] [facility] [id number] [address] [place] [address] Apr, [facility] [address] [facility] [id number] [address] [place] [address] Apr, [facility] [address] [facility] [id number] [address] [place] [address] Mar, [facility] [address] [facility] [id number] [address] [place] [address] Mar, Encounter for immunization Z 23 and Diabetes E11.9 [facility] [address] [facility] [id number] [address] [place] [address] Feb, [facility] [address] [facility] [id number] [address] [place] [address] Feb, [facility] [address] [id number] [address] [place] [address] 23 Jan, 2015 [facility] [address] [facility] [id number] [address] [place] [address] 16 Jan, 2015 [facility] [address] [facility] [id number] [address] [place] [address] Dec, [facility] [address] [facility] [id number] [address] [place] [address] Dec, [facility] [address] [id number] [address] [place] [address] Dec, Unspecified arthropathy, sit e unspecified 716.90 and Diabetes mellitus type 2, uncontrolled 250.02 [facility] [address] [id number] [address] [place] [address], [place] [address] Dec, [facility] [address] [id number] [address] [place] [address] Nov, [facility] [address] [id number] [address] [place] [address], [place] [address] Oct, [facility] [address] [id number] [address] [place] [address], [place] [address] September, [facility] [address] [id number] [address] [place] [address], [place] [address] September, [facility] [address] [id number] [address] [place] [address], [place] [address] September, [facility] [address] [id number] [address] [place] [address], [place] [address] September, [facility] [address] [id number] [address] [place] [address], [place] [address] Aug, [facility] [address] [id number] [address] [place] [address], [place] [address] Aug, [facility] [address] [id number] [address] [place] [address], [place] [address] Jul, [facility] [address] [id number] [address] [place] [id number] 18 Jul, 2014 [facility] [address] [id number] [address] [place] [id number] 16 Jul, 2014 [facility] [address] [id number] [address] [place] [address], [place] [address] 16 Jul, 2014 [facility] [address] [id number] [address] [place] [id number] 16 Jul, 2014 [facility] [address] [id number] [address] [place] [address], [place] [address] 16 Jul, 2014 [facility] [address] [id number] [address] [place] [address], [place] [address] 16 Jul, 2014 [facility] [address] [id number] [address] [place] [address], [place] [address] 16 Jul, 2014 [facility] [address] [id number] [address] [place] [address], [place] [address] 16 Jul, 2014 [facility] [address] [id number] [address] [place] [address], [place] [address] 13 Jul, 2014 [facility] [address] [id number] [address] [place] [address], [place] [address] 13 Jul, 2014 [facility] [address] [id number] [address] [place] [address], [place] [address] 09 Jul, 2014 [facility] [address] [id number] [address] [place] [address], [place] [address] 09 Jul, 2014 [facility] [address] [id number] [address] [place] [address], [place] [address] 17 Jul, 2014 [facility] [address] [id number] [address] [place] [address], [place] [address] 17 Jul, 2014 [facility] [place] [facility] [address] [id number] [address] [place] [address], [place] [address] 16 Jul, 2014 [facility] [place] [address] [id number] [address] [place] [address], [place] [address] 16 Jul, 2014 [facility] [place] [address] [id number] [address] [place] [address], [place] [address] 16 Jul, 2014 [facility] [place] [address] [id number] [address] [place] [address], [place] [address] 16 Jul, 2014 [facility] [address] [id number] [address] [place] [address], [place] [address] 16 Jul, 2014 [facility] [place] [address] [id number] [address] [place] [address], [place] [address] 16 Jul, 2014 [facility] [place] [address] [id number] [address] [place] [address], [place] [address] Jul, 2014 [facility] [place] [address] [id number] [address] [place] [address], [place] [address] 16 Jul, 2014 [facility] [place] [address] [id number] [address] [place] [address], [place] [address] Jul, 2014 [facility] [address] [id number] [address] [place] [address], [place] [address] Jul, 2014 [facility] [place] [address] [id number] [address] [place] [address], [place] [address] Jul, 2014 [facility] [address] [id number] [address] [place] [address], [place] [address] Jul, 2014 [facility] [place] [address] [id number] [address] [place] [address], [place] [address] Jul, 2014 [facility] [place] [address] [id number] [address] [place] [address], [place] [address] Jul, [facility] [place] [address] [id number] [address] [place] [address], [place] [address] May, [facility] [address] [id number] [address] [place] [address], [place] [address] May, [facility] [address] [id number] [address] [place] [address], [place] [address] May, [facility] [address] [id number] [address] [place] [address], [place] [address] May, [facility] [address] [id number] [address] [place] [address], [place] [address] May, [facility] [address] [id number] [address] [place] [address], [place] [address] May, [facility] [address] [id number] [address] [place] [address] May, [facility] [address] [id number] [address] [place] [address], [place] [address] May, [facility] [address] [id number] [address] [place] [address], [place] [address] May, [facility] [address] [id number] [address] [place] [address], [place] [address] May, [facility] [address] [id number] [address] [place] [address], [place] [address] Apr, [facility] [address] [id number] [address] [place] [address], [place] [address] Apr, [facility] [address] [id number] [address] [place] [address], [place] [address] Apr, [facility] [address] [id number] [address] [place] [address], [place] [address] Apr, [facility] [address] [id number] [address] [place] [address], [place] [address] Apr, [facility] [address] [id number] [address] [place] [address], [place] [address] Apr, [facility] [address] [id number] [address] [place] [address], [place] [address] Mar, [facility] [address] [id number] [address] [place] [address], [place] [address] Mar, [facility] [address] [id number] [address] [place] [address], [place] [address] Mar, [facility] [address] [id number] [address] [place] [address], [place] [address] Mar, [facility] [address] [id number] [address] [place] [address], [place] [address] Mar, [facility] [address] [id number] [address] [place] [address], [place] [address] Mar, [facility] [address] [id number] [address] [place] [address], [place] [address] Mar, [facility] [address] [id number] [address] [place] [address], [place] [address] 17 Mar, 2014 [facility] [place] [address] [id number] [address] [place] [address], [place] [address] Mar, [facility] [address] [id number] [address] [place] [address], [place] [address] Mar, [facility] [address] [id number] [address] [place] [address], [place] [address] Mar, [facility] [address] [id number] [address] [place] [address], [place] [address] Feb, [facility] [address] [id number] [address] [place] [address], [place] [address] Feb, [facility] [place] [address] [id number] [address] [place] [address], [place] [address] Feb, [facility] [address] [id number] [address] [place] [address], [place] [address] Feb, [facility] [address] [id number] [address] [place] [address], [place] [address] Feb, [facility] [address] [id number] [address] [place] [address], [place] [address] Feb, [facility] [address] [id number] [address] [place] [address], [place] [address] Feb, [facility] [address] [id number] [address] [place] [address], [place] [address] Feb, [facility] [address] [id number] [address] [place] [address], [place] [address] Feb, [facility] [address] [id number] [address] [place] [address], [place] [address] Feb, [facility] [address] [id number] [address] [place] [address], [place] [address] Jan, [facility] [address] [id number] [address] [place] [address], [place] [address] 22 Jan, 2013 [facility] [address] [id number] [address] [place] [address], [place] [address] 16 Jan, 2013 [facility] [address] [id number] [address] [place] [address], [place] [address] 16 Jan, 2013 [facility] [address] [id number] [address] [place] [address], [place] [address] 12 Jan, 2014 [facility] [address] [id number] [address] [place] [address], [place] [address] Jan, [facility] [address] [id number] [address] [place] [address], [place] [address] Jan, [facility] [address] [id number] [address] [place] [address], [place] [address] Dec, [facility] [address] [id number] [address] [place] [address], [place] [address] Dec, [facility] [address] [id number] [address] [place] [address], [place] [address] Dec, [facility] [address] [id number] [address] [place] [address], [place] [address] Dec, [facility] [address] [id number] [address] [place] [address], [place] [address] Dec, [facility] [address] [id number] [address] [place] [address], [place] [address] Dec, [facility] [address] [id number] [address] [place] [address], [place] [address] Dec, [facility] [address] [id number] [address] [place] [address], [place] [address] Dec, [facility] [address] [id number] [address] [place] [address], [place] [address] Oct, [facility] [address] [id number] [address] [place] [address], [place] [address] Oct, [facility] [address] [id number] [address] [place] [address], [place] [address] September, [facility] [address] [id number] [address] [place] [address], [place] [address] September, [facility] [address] [id number] [address] [place] [address], [place] [address] September, [facility] [address] [id number] [address] [place] [address], [place] [address] September, [facility] [address] [id number] [address] [place] [address], [place] [address] September, [facility] [address] [id number] [address] [place] [address], [place] [address] September, [facility] [address] [id number] [address] [place] [address], [place] [address] September, [facility] [address] [id number] [address] [place] [address], [place] [address] Aug, [facility] [address] [id number] [address] [place] [address], [place] [address] Aug, [facility] [address] [id number] [address] [place] [address], [place] [address] Jul, [facility] [address] [id number] [address] [place] [address], [place] [address] Jul, [facility] [address] [id number] [address] [place] [address], [place] [address] Jul, [facility] [address] [id number] [address] [place] [address], [place] [address] Jul, [facility] [address] [id number] [address] [place] [address], [place] [address] Jul, [facility] [address] [id number] [address] [place] [address], [place] [address] Jul, [facility] [address] [id number] [address] [place] [address], [place] [address] Jul, [facility] [address] [id number] [address] [place] [address], [place] [address] Jul, [facility] [address] [id number] [address] [place] [address], [place] [address] May, [facility] [address] [id number] [address] [place] [address], [place] [address] May, [facility] [address] [id number] [address] [place] [address], [place] [address] May, [facility] [address] [id number] [address] [place] [address], [place] [address] May, [facility] [address] [id number] [address] [place] [address], [place] [address] Apr, [facility] [address] [id number] [address] [place] [address], [place] [address] Mar, [facility] [address] [id number] [address] [place] [address], [place] [address] Mar, [facility] [address] [id number] [address] [place] [address], [place] [address] Mar, [facility] [address] [id number] [address] [place] [address], [place] [address] Mar, [facility] [address] [id number] [address] [place] [address], [place] [address] Mar, [facility] [address] [id number] [address] [place] [address], [place] [address] Mar, [facility] [address] [id number] [address] [place] [address], [place] [address] Mar, [facility] [address] [id number] [address] [place] [address], [place] [address] Mar, [facility] [address] [id number] [address] [place] [address], [place] [address] Mar, [facility] [address] [id number] [address] [place] [address], [place] [address] Mar, [facility] [address] [id number] [address] [place] [address], [place] [address] Mar, [facility] [address] [id number] [address] [place] [address], [place] [address] Mar, [facility] [address] [id number] [address] [place] [address], [place] [address] Feb, [facility] [address] [id number] [address] [place] [address], [place] [address] Feb, [facility] [address] [id number] [address] [place] [address], [place] [address] Feb, [facility] [address] [id number] [address] [place] [address], [place] [address] Feb, [facility] [address] [id number] [address] [place] [address], [place] [address] Feb, [facility] [address] [id number] [address] [place] [address], [place] [address] Jan, [facility] [address] [id number] [address] [place] [address], [place] [address] Dec, [facility] [address] [id number] [address] [place] [address], [place] [address] Dec, [facility] [address] [id number] [address] [place] [address], [place] [address] Dec, [facility] [address] [id number] [address] [place] [address], [place] [address] Nov, [facility] [address] [id number] [address] [place] [address], [place] [address] Nov, [facility] [address] [id number] [address] [place] [address], [place] [address] Nov, [facility] [address] [id number] [facility] [address] 27 Oct, 2012 [facility] [address] [id number] [address] [place] [address], [place] [address] Oct, [facility] [address] [id number] [address] [place] [address], [place] [address] Oct, [facility] [address] [id number] [address] [place] [address], [place] [address] September, [facility] [address] [id number] [address] [place] [address], [place] [address] September, [facility] [address] [id number] [address] [place] [address], [place] [address] September, [facility] [address] [id number] [address] [place] [address], [place] [address] September, [facility] [address] [id number] [address] [place] [address], [place] [address] September, [facility] [address] [id number] [address] [place] [address], [place] [address] Aug, [facility] [address] [id number] [address] [place] [address], [place] [address] Aug, [facility] [address] [id number] [address] [place] [address], [place] [address] Aug, [facility] [address] [id number] [address] [place] [address], [place] [address] Jul, [facility] [address] [id number] [address] [place] [address], [place] [address] Jul, [facility] [address] [id number] [address] [place] [address], [place] [address] Jul, [facility] [address] [id number] [address] [place] [address], [place] [address] Jul, [facility] [address] [id number] [address] [place] [address], [place] [address] Jul, [facility] [address] [id number] [address] [place] [address], [place] [address] Jul, [facility] [address] [id number] [address] [place] [address], [place] [address] Jul, [facility] [address] [id number] [address] [place] [address], [place] [address] May, [facility] [address] [id number] [address] [place] [address], [place] [address] May, [facility] [address] [id number] [address] [place] [address], [place] [address] May, [facility] [address] [id number] [address] [place] [address], [place] [address] Apr, [facility] [address] [id number] [address] [place] [address], [place] [address] Apr, [facility] [address] [id number] [address] [place] [address], [place] [address] Apr, [facility] [address] [id number] [address] [place] [address], [place] [address] Apr, [facility] [address] [id number] [address] [place] [address], [place] [address] Apr, [facility] [address] [id number] [address] [place] [address], [place] [address] Mar, [facility] [address] [id number] [address] [place] [address], [place] [address] 29 Mar, 2012 [facility] [address] [id number] [address] [place] [address], [place] [address] 15 Mar, 2012 [facility] [address] [id number] [address] [place] [address], [place] [address] 15 Mar, 2012 [facility] [address] [id number] [address] [place] [address], [place] [address] Feb, [facility] [address] [id number] [address] [place] [address], [place] [address] Feb, [facility] [address] [id number] [address] [place] [address], [place] [address] Feb, [facility] [address] [id number] [address] [place] [address], [place] [address] Feb, [facility] [address] [id number] [address] [place] [address], [place] [address] Feb, [facility] [address] [id number] [address] [place] [address], [place] [address] Jan, [facility] [address] [id number] [address] [place] [address], [place] [address] Dec, [facility] [address] [id number] [address] [place] [address], [place] [address] Dec, [facility] [address] [id number] [address] [place] [address], [place] [address] Dec, [facility] [address] [id number] [address] [place] [address], [place] [address] Nov, [facility] [address] [id number] [address] [place] [address], [place] [address] Nov, [facility] [address] [id number] [address] [place] [address], [place] [address] Nov, [facility] [address] [id number] [address] [place] [address], [place] [address] Oct, [facility] [address] [id number] [address] [place] [address], [place] [address] Oct, [facility] [address] [id number] [address] [place] [address], [place] [address] Oct, [facility] [address] [id number] [address] [place] [address], [place] [address] Oct, [facility] [address] [id number] [address] [place] [address], [place] [address] September, [facility] [address] [id number] [address] [place] [address], [place] [address] September, [facility] [address] [id number] [address] [place] [address], [place] [address] Aug, [facility] [address] [id number] [address] [place] [address], [place] [address] Aug, [facility] [address] [id number] [address] [place] [address], [place] [address] Aug, [facility] [address] [id number] [address] [place] [address], [place] [address] Aug, [facility] [address] [id number] [address] [place] [address], [place] [address] Aug, [facility] [address] [id number] [address] [place] [address], [place] [address] Aug, [facility] [address] [id number] [address] [place] [address], [place] [address] Aug, [facility] [address] [id number] [address] [place] [address], [place] [address] Jul, [facility] [address] [id number] [address] [place] [address], [place] [address] Jul, [facility] [address] [id number] [address] [place] [address], [place] [address] Jul, [facility] [address] [id number] [address] [place] [address], [place] [address] May, [facility] [address] [id number] [address] [place] [address], [place] [address] May, [facility] [address] [id number] [address] [place] [address], [place] [address] May, [facility] [address] [id number] [address] [place] [address], [place] [address] Apr, [facility] [address] [id number] [address] [place] [address] Apr, [facility] [address] [id number] [address] [place] [address] Mar, [facility] [address] [id number] [address] [place] [address] Mar, [facility] [address] [id number] [address] [place] [address] Mar, [facility] [address] [id number] [address] [place] [address] Mar, [facility] [address] [id number] [address] [place] [address] Mar, [facility] [address] [id number] [address] [place] [id number] Mar, [facility] [address] [id number] [address] [place] [id number] Feb, [facility] [address] [id number] [address] [place] [address] Feb, [facility] [address] [id number] [address] [place] [id number] Feb, IMMUNIZATIONS No Known Immunizations SOCIAL HISTORY [...] foot infections x 3 2015 Hospitalization History [facility] - right big t oe removed 2018
--- OUTSIDE RECORDS SUMMARY | 2020-01-03 07:44 | XMS REPORT ---
Author Author Tra SILVERIO Organization [facility] Address [address] [place] [address] Care Team Providers Care Telephone Sales Representative Name Role Phone FERNY SILVERIO Unavailable PROBLEMS Type Condition ICD9-CM Code XNN15-UY Code Onset Dates Condition S tatus SNOMED Code Problem Insulin long-term use Z79.4 Active 003984148 Problem Hypertension I10 Active 0470614 3 Problem Diabetes E11.9 Active 21628117 Problem Hypoxia R09.02 Active 236472742 Problem Anxiety F41.9 Active 18556418 Problem Port catheter in place Z95.828 Active 714171603 Problem Pressure ulcer of other site, stage 3 L89.893 Active 649888483 Problem COPD (chronic obstructive pulmonary disease) J44.9 Active 85129838 Problem Type 2 diabetes mellitus wit h diabetic peripheral angiopathy without gangrene E11.51 Active 271938627 Problem Back pain M54.9 Active 072818627 Problem PAD (peripheral artery disease) I73.9 Active 491385978 Problem Lumbar radiculopathy, chronic M54.16 Active 376800376 Problem Recurrent major depressive disorder, in full remission F33.42 Active 011961982 Problem shelter current use of insulin Z79.4 Active 043609769 ALLERGIES No Information ENCOUNTERS Encounter Location Date Diagnosis [facility] [address] [facility] [id number] [address] [place] [id number] Dec, [facility] [address] [facility] [id number] [address] [place] [id number] Dec, [facility] [address] [facility] [id number] [address] [place] [phone] Nov, Anxiety F41.9 [facility] [address] [facility] [id number] [address] [place] [id number] Nov, [facility] [address] [id number] [address] [place] [id number] 30 Nov, 2018 Back pain M54.9 [facility] [address] [id number] [address] [place] [address], [place] [address] Nov, [facility] [address] [id number] [address] [place] [phone] Nov, Back pain M54.9 [facility] [address] [id number] [address] [place] [address], [place] [address] Nov, Anxiety F41.9 [facility] [address] [id number] [address] [place] [address], [place] [address] Nov, [facility] [address] [id number] [address] [place] [phone] Oct, Back pain M54.9 [facility] [address] [id number] [address] [place] [id number] Oct, [facility] [address] [id number] [address] [place] [id number] Oct, [facility] [address] [id number] [address] [place] [id number] Oct, [facility] [address] [id number] [address] [place] [id number] September, Back pain M54.9 [facility] [address] [id number] [address] [place] [id number] September, [facility] [address] [id number] [address] [place] [phone] September, [facility] [address] [id number] [address] [place] [id number] September, [facility] [address] [id number] [address] [place] [id number] Aug, Back pain M54.9 [facility] [address] [id number] [address] [place] [phone] Aug, Anxiety F41.9 [facility] [address] [id number] [address] [place] [id number] Aug, [facility] [address] [id number] [address] [place] [id number] Aug, Pressure ulcer of other site , stage 3 L89.893 and COPD (chronic obstructive pulmonary disease) J44.9 [facility] [address] [id number] [address] [place] [address] Aug, History of smoking Z87.891 [facility] [address] [id number] [address] [place] [id number] Jul, Type 2 diabetes mellitus wit h diabetic peripheral angiopathy without gangrene E11.51 [facility] [address] [id number] [address] [place] [id number] Jul, Back pain M54.9 [facility] [address] [id number] [address] [place] [address] Jul, Anxiety F41.9 [facility] [address] [id number] [address] [place] [id number] Jul, [facility] [address] [id number] [address] [place] [id number] Jul, Back pain M54.9 [facility] [address] [id number] [address] [place] [phone] Jul, Back pain M54.9 [facility] [address] [id number] [address] [place] [id number] Jul, Lumbar radiculopathy, chroni c M54.16 ; Hypertension I10 and Type 2 diabetes mellitus with diabetic peripheral angiopathy without gangrene E11.51 [facility] [address] [id number] [address] [place] [phone] Jul, Back pain M54.9 [facility] [address] [id number] [address] [place] [phone] Jul, Back pain M54.9 and Anxiety F41.9 [facility] [address] [id number] [address] [place] [id number] Jul, [facility] [address] [id number] [address] [place] [phone] May, Back pain M54.9 and Anxiety F41.9 [facility] [address] [facility] [id number] [address] [place] [phone] May, [facility] [address] [facility] [id number] [address] [place] [id number] Apr, Radiculopathy of lumbar rhiannon on M54.16 ; Back pain M54.9 and Anxiety F41.9 [facility] [address] [facility] [id number] [address] [place] [id number] Apr, Diabetes E11.9 ; Muscle spas m M62.838 and Lumbar radiculopathy, chronic M54.16 [facility] [address] [facility] [id number] [address] [place] [phone] Apr, [facility] [address] [facility] [id number] [address] [place] [id number] Apr, [facility] [address] [facility] [id number] [address] [place] [id number] Mar, Back pain M54.9 and Anxiety F41.9 [facility] [address] [facility] [id number] [address] [place] [phone] Mar, [facility] [address] [id number] [address] [place] [phone] Mar, [facility] [address] [facility] [id number] [address] [place] [phone] Mar, [facility] [address] [facility] [id number] [address] [place] [id number] Mar, Encounter for immunization Z 23 [facility] [address] [id number] [address] [place] [id number] Feb, Back pain M54.9 and Anxiety F41.9 [facility] [address] [id number] [address] [place] [id number] 04 Feb, 2018 Back pain M54.9 and Anxiety F41.9 [facility] [address] [id number] [address] [place] [id number] Jan, Back pain M54.9 and Anxiety F41.9 [facility] [address] [id number] [address] [place] [id number] Jan, [facility] [address] [id number] [address] [place] [id number] Dec, [facility] [address] [id number] [address] [place] [id number] Dec, Back pain M54.9 and Anxiety F41.9 [facility] [address] [id number] [address] [place] [id number] 13 Dec, 2017 Diabetes E11.9 ; Type 2 diab etes mellitus with diabetic peripheral angiopathy without gangrene E11.51 ; Lumbar radiculopathy, chronic M54.16 ; COPD (chronic obstructive pulmonary disease) J44.9 and Anxiety F41.9 [facility] [address] [id number] [address] [place] [id number] Dec, Back pain M54.9 and Anxiety F41.9 [facility] [address] [id number] [address] [place] [id number] Nov, Back pain M54.9 and Anxiety F41.9 [facility] [address] [id number] [address] [place] [phone] Oct, [facility] [address] [id number] [address] [place] [id number] 2017 Back pain M54.9 and Anxiety F41.9 [facility] [address] [id number] [address] [place] [id number] September, Anxiety F41.9 and Back pain M54.9 [facility] [address] [id number] [address] [place] [id number] September, Diabetes E11.9 ; Hypertensio n I10 ; COPD (chronic obstructive pulmonary disease) J44.9 and Lumbar radiculopathy, chronic M54.16 [facility] [address] [id number] [address] [place] [id number] September, Anxiety F41.9 [facility] [address] [id number] [address] [place] [id number] Aug, [facility] [address] [id number] [address] [place] [id number] Aug, [place] [address] [id number] [address] [place] [id number] Aug, Anxiety F41.9 and Back pain M54.9 [facility] [address] [id number] [address] [place] [id number] Aug, Medicare annual wellness vis it, initial [...] and shelter current use of insulin Z79.4 [facility] [address] [id number] [address] [place] [id number] Jul, Back pain M54.9 [facility] [address] [id number] [address] [place] [id number] Jul, [facility] [address] [id number] [address] [place] [id number] Jul, Anxiety F41.9 and Back pain M54.9 [facility] [address] [id number] [address] [place] [id number] Jul, Diabetes E11.9 [facility] [address] [id number] [address] [place] [id number] May, [facility] [address] [id number] [address] [place] [address] May, Diabetes E11.9 ; Anxiety F41 .9 ; Back pain M54.9 and COPD (chronic obstructive pulmonary disease) J44.9 [facility] [address] [id number] [address] [place] [id number] May, Back pain M54.9 [facility] [address] [id number] [address] [place] [id number] May, [facility] [address] [id number] [address] [place] [id number] Apr, Back pain M54.9 [facility] [address] [id number] [address] [place] [phone] Mar, Back pain M54.9 [facility] [address] [id number] [address] [place] [id number] Mar, [facility] [address] [id number] [address] [place] [id number] Mar, [facility] [address] [id number] [address] [place] [id number] 14 Mar, 2017 Radiculopathy of lumbar rhiannon on M54.16 [facility] [address] [id number] [address] [place] [id number] 13 Mar, 2017 [facility] [address] [id number] [address] [place] [id number] 07 Mar, 2017 Encounter for immunization Z 23 and Lumbar radiculopathy, chronic M54.16 [facility] [address] [id number] [address] [place] [id number] Mar, Back pain M54.9 and Anxiety F41.9 [facility] [address] [id number] [address] [place] [id number] Feb, Acute bilateral low back boy n with left-sided sciatica M54.42 and Acute bilateral low back pain with right-sided sciatica M54.41 [facility] [address] [id number] [address] [place] [id number] Feb, [facility] [address] [id number] [address] [place] [id number] Feb, Back pain M54.9 [facility] [address] [id number] [address] [place] [id number] 05 Jan, 2017 Back pain M54.9 and Anxiety F41.9 [facility] [address] [id number] [address] [place] [id number] Jan, Diabetes E11.9 [facility] [address] [id number] [address] [place] [id number] Dec, Diabetes E11.9 ; Back pain M 54.9 ; Anxiety F41.9 and Insulin long- term use Z79.4 [facility] [address] [id number] [address] [place] [id number] Dec, Anxiety F41.9 [facility] [address] [id number] [address] [place] [id number] Dec, Back pain M54.9 [facility] [address] [id number] [address] [place] [id number] Nov, Back pain M54.9 [facility] [address] [id number] [address] [place] [id number] Oct, Back pain M54.9 and Anxiety F41.9 [facility] [address] [id number] [address] [place] [id number] September, Back pain M54.9 [facility] [address] [id number] [address] [place] [phone] September, Back pain M54.9 and Anxiety F41.9 [facility] [address] [id number] [address] [place] [phone] Aug, Diabetes E11.9 ; Anxiety F41 .9 ; Back pain M54.9 and PAD (peripheral artery disease) I73.9 [facility] [address] [id number] [address] [place] [id number] Aug, Anxiety F41.9 [facility] [address] [id number] [address] [place] [phone] Aug, Back pain M54.9 [facility] [address] [id number] [address] [place] [id number] Jul, Back pain M54.9 [facility] [address] [id number] [address] [place] [id number] Jul, Back pain M54.9 [facility] [address] [id number] [address] [place] [id number] Jul, Back pain M54.9 [facility] [address] [id number] [address] [place] [id number] Jul, Dorsalgia M54.9 [facility] [address] [id number] [address] [place] [phone] Jul, [facility] [address] [id number] [address] [place] [id number] May, Back pain M54.9 [facility] [address] [id number] [address] [place] [id number] May, Diabetes E11.9 ; Anxiety F41 .9 ; Port catheter in place Z95.828 ; Encounter for immunization Z23 and Insulin long-term use Z79.4 [facility] [address] [id number] [address] [place] [id number] Apr, Back pain M54.9 [facility] [address] [id number] [address] [place] [id number] Apr, Back pain M54.9 [facility] [address] [id number] [address] [place] [id number] Apr, [facility] [address] [id number] [address] [place] [id number] Apr, Back pain M54.9 [facility] [address] [id number] [address] [place] [id number] Mar, COPD (chronic obstructive pu lmonary disease) J44.9 [facility] [address] [id number] [address] [place] [id number] Feb, [facility] [address] [id number] [address] [place] [id number] 30 Jan, 2016 [facility] [address] [id number] [address] [place] [id number] Jan, [facility] [address] [id number] [address] [place] [id number] Jan, [facility] [address] [id number] [address] [place] [id number] Jan, [facility] [address] [id number] [address] [place] [id number] Dec, Diabetes E11.9 ; Hypoxia R09 .02 and Back pain M54.9 [facility] [address] [id number] [address] [place] [phone] Dec, [facility] [address] [id number] [address] [place] [phone] Nov, [facility] [address] [id number] [address] [place] [phone] Oct, Anxiety F41.9 [facility] [address] [id number] [address] [place] [id number] Oct, Back pain M54.9 [facility] [address] [facility] [id number] [address] [place] [id number] September, Back pain M54.9 [facility] [address] [facility] [id number] [address] [place] [id number] September, Diabetes E11.9 [facility] [address] [facility] [id number] [address] [place] [id number] September, [facility] [address] [facility] [id number] [address] [place] [id number] September, Diabetes E11.9 ; Insulin sarai g-term use Z79.4 and Back pain M54.9 [facility] [address] [facility] [id number] [address] [place] [id number] Aug, Back pain M54.9 [facility] [address] [facility] [id number] [address] [place] [id number] Aug, Back pain M54.9 ; Anxiety F4 1.9 and Arthropathy, unspecified M12.9 [facility] [address] [facility] [id number] [address] [place] [id number] Jul, Back pain M54.9 [facility] [address] [facility] [id number] [address] [place] [id number] Jul, Anxiety F41.9 [facility] [address] [facility] [id number] [address] [place] [id number] Jul, Back pain M54.9 [facility] [address] [facility] [id number] [address] [place] [id number] Jul, [facility] [address] [facility] [id number] [address] [place] [id number] Jul, [facility] [address] [facility] [id number] [address] [place] [phone] May, Back pain M54.9 ; Diabetes E 11.9 ; Insulin long-term use Z79.4 ; COPD (chronic obstructive pulmonary disease) J44.9 and Hypertension I10 [facility] [address] [id number] [address] [place] [id number] May, Chronic pain G89.29 [facility] [address] [id number] [address] [place] [id number] Apr, [facility] [address] [facility] [id number] [address] [place] [phone] Apr, [facility] [address] [id number] [address] [place] [phone] Mar, [facility] [address] [id number] [address] [place] [phone] Mar, Encounter for immunization Z 23 and Diabetes E11.9 [facility] [address] [id number] [address] [place] [phone] Feb, [facility] [address] [facility] [id number] [address] [place] [id number] Feb, [facility] [address] [facility] [id number] [address] [place] [phone] Jan, [facility] [address] [id number] [address] [place] [phone] Jan, [facility] [address] [facility] [id number] [address] [place] [phone] Dec, [facility] [address] [facility] [id number] [address] [place] [phone] Dec, [facility] [address] [facility] [id number] [address] [place] [id number] Dec, Unspecified arthropathy, sit e unspecified 716.90 and Diabetes mellitus type 2, uncontrolled 250.02 [facility] [address] [id number] [address] [place] [phone] Dec, [facility] [address] [facility] [id number] [address] [place] [phone] Nov, [facility] [address] [facility] [id number] [address] [place] [phone] 08 Oct, 2014 [facility] [address] [id number] [address] [place] [address], [place] [id number] September, [facility] [address] [id number] [address] [place] [address], [place] [id number] September, [facility] [address] [id number] [address] [place] [address], [place] [id number] September, [facility] [address] [id number] [address] [place] [address], [place] [id number] September, [facility] [address] [id number] [address] [place] [address], [place] [id number] 14 Aug, 2014 [facility] [address] [id number] [address] [place] [address], [place] [id number] Aug, [facility] [address] [id number] [address] [place] [address], [place] [id number] 18 Jul, 2014 [facility] [address] [id number] [address] [place] [address], [place] [id number] 18 Jul, 2014 [facility] [address] [id number] [address] [place] [address], [place] [address] 16 Jul, 2014 [facility] [address] [id number] [address] [place] [address], [place] [address] 16 Jul, 2014 [facility] [address] [id number] [address] [place] [address], [place] [address] 16 Jul, 2014 [facility] [address] [id number] [address] [place] [address], [place] [address] 16 Jul, 2014 [facility] [address] [id number] [address] [place] [address], [place] [address] 16 Jul, 2014 [facility] [address] [id number] [address] [place] [address], [place] [address] 16 Jul, 2014 [facility] [address] [id number] [address] [place] [address], [place] [address] 16 Jul, 2014 [facility] [address] [id number] [address] [place] [address], [place] [address] 13 Jul, 2014 [facility] [address] [id number] [address] [place] [address], [place] [address] 13 Jul, 2014 [facility] [address] [id number] [address] [place] [address], [place] [address] 09 Jul, 2014 [facility] [address] [id number] [address] [place] [address], [place] [address] 09 Jul, 2014 [facility] [address] [id number] [address] [place] [address], [place] [address] 17 Jul, 2014 [facility] [address] [id number] [address] [place] [address], [place] [address] 17 Jul, 2014 [facility] [address] [id number] [address] [place] [address], [place] [address] 16 Jul, 2014 [facility] [address] [id number] [address] [place] [address], [place] [address] 16 Jul, 2014 [facility] [address] [id number] [address] [place] [address], [place] [address] 16 Jul, 2014 [facility] [address] [id number] [address] [place] [address], [place] [address] 16 Jul, 2014 [facility] [address] [id number] [address] [place] [address], [place] [address] 16 Jul, 2014 [facility] [address] [id number] [address] [place] [address] 16 Jul, 2014 [facility] [address] [id number] [address] [place] [address], [place] [address] 16 Jul, 2014 [facility] [address] [id number] [address] [place] [address], [place] [address] 16 Jul, 2014 [facility] [address] [id number] [address] [place] [address] 16 Jul, 2014 [facility] [address] [id number] [address] [place] [address] Jul, [facility] [address] [id number] [address] [place] [address], [place] [address] Jul, [facility] [address] [id number] [address] [place] [address], [place] [address] Jul, [facility] [address] [id number] [address] [place] [address], [place] [address] Jul, [facility] [address] [id number] [address] [place] [address], [place] [address] Jul, [facility] [address] [id number] [address] [place] [address], [place] [address] May, [facility] [address] [id number] [address] [place] [address], [place] [address] May, [facility] [address] [id number] [address] [place] [address], [place] [address] May, [facility] [address] [id number] [address] [place] [address], [place] [address] May, [facility] [address] [id number] [address] [place] [address], [place] [address] May, [facility] [address] [id number] [address] [place] [address], [place] [address] May, [facility] [address] [id number] [address] [place] [address], [place] [address] May, [facility] [address] [id number] [address] [place] [address], [place] [address] May, [facility] [address] [id number] [address] [place] [address], [place] [address] May, [facility] [address] [id number] [address] [place] [address], [place] [address] May, [facility] [address] [id number] [address] [place] [address], [place] [address] Apr, [facility] [address] [id number] [address] [place] [address], [place] [address] Apr, [facility] [address] [id number] [address] [place] [address], [place] [address] Apr, [facility] [address] [id number] [address] [place] [address], [place] [address] Apr, [facility] [address] [id number] [address] [place] [address], [place] [address] Apr, [facility] [address] [id number] [address] [place] [address], [place] [address] Apr, [facility] [address] [id number] [address] [place] [address], [place] [address] Mar, [facility] [address] [id number] [address] [place] [address], [place] [address] Mar, [facility] [address] [id number] [address] [place] [address], [place] [address] Mar, [facility] [address] [id number] [address] [place] [address], [place] [address] Mar, [facility] [address] [id number] [address] [place] [address], [place] [address] Mar, [facility] [address] [id number] [address] [place] [address], [place] [address] Mar, [facility] [address] [id number] [address] [place] [address], [place] [address] Mar, [facility] [address] [id number] [address] [place] [address], [place] [address] Mar, [facility] [address] [id number] [address] [place] [address], [place] [address] Mar, [facility] [address] [id number] [address] [place] [address], [place] [address] Mar, [facility] [address] [id number] [address] [place] [address] Mar, [facility] [address] [id number] [address] [place] [address], [place] [address] Feb, [facility] [address] [id number] [address] [place] [address], [place] [address] Feb, [facility] [address] [id number] [address] [place] [address], [place] [address] Feb, [facility] [address] [id number] [address] [place] [address], [place] [address] Feb, [facility] [address] [id number] [address] [place] [address], [place] [address] Feb, [facility] [address] [id number] [address] [place] [address], [place] [address] Feb, [facility] [address] [id number] [address] [place] [address], [place] [address] Feb, [facility] [address] [id number] [address] [place] [address], [place] [address] Feb, [facility] [address] [id number] [address] [place] [address], [place] [address] Feb, [facility] [address] [id number] [address] [place] [address], [place] [address] Feb, [facility] [address] [id number] [address] [place] [address], [place] [address] 22 Jan, 2014 [facility] [address] [id number] [address] [place] [address], [place] [address] 22 Jan, 2013 [facility] [address] [id number] [address] [place] [address], [place] [address] 16 Jan, 2013 [facility] [address] [id number] [address] [place] [address], [place] [address] 16 Jan, 2013 [facility] [address] [id number] [address] [place] [address], [place] [address] 12 Jan, 2013 [facility] [address] [id number] [facility] [place] [address] Jan, [facility] [address] [id number] [address] [place] [address], [place] [address] Jan, [facility] [address] [id number] [address] [place] [address], [place] [address] Dec, [facility] [address] [id number] [address] [place] [address], [place] [address] Dec, [facility] [address] [id number] [address] [place] [address], [place] [address] Dec, [facility] [address] [id number] [address] [place] [address], [place] [address] Dec, [facility] [address] [id number] [address] [place] [address], [place] [address] Dec, [facility] [address] [id number] [address] [place] [address], [place] [address] Dec, [facility] [address] [id number] [address] [place] [address], [place] [address] Dec, [facility] [address] [id number] [address] [place] [address], [place] [address] Dec, [facility] [address] [id number] [address] [place] [address], [place] [address] Oct, [facility] [address] [id number] [address] [place] [address], [place] [address] Oct, [facility] [address] [id number] [address] [place] [address], [place] [address] September, [facility] [address] [id number] [address] [place] [address], [place] [address] September, [facility] [address] [id number] [address] [place] [address], [place] [address] September, [facility] [address] [id number] [address] [place] [address], [place] [address] September, [facility] [address] [id number] [address] [place] [address], [place] [address] September, [facility] [address] [id number] [address] [place] [address], [place] [address] September, [facility] [address] [id number] [address] [place] [address], [place] [address] September, [facility] [address] [id number] [address] [place] [address], [place] [address] Aug, [facility] [address] [id number] [address] [place] [address], [place] [address] Aug, [facility] [address] [id number] [address] [place] [address], [place] [address] Jul, [facility] [address] [id number] [address] [place] [address], [place] [address] Jul, [facility] [address] [id number] [address] [place] [address], [place] [address] Jul, [facility] [address] [id number] [address] [place] [address], [place] [address] Jul, [facility] [address] [id number] [address] [place] [address], [place] [address] Jul, [facility] [address] [id number] [address] [place] [address], [place] [address] Jul, [facility] [address] [id number] [address] [place] [address], [place] [address] Jul, [facility] [address] [id number] [address] [place] [address], [place] [address] Jul, [facility] [address] [id number] [address] [place] [address], [place] [address] May, [facility] [address] [id number] [address] [place] [address], [place] [address] May, [facility] [address] [id number] [address] [place] [address], [place] [address] 14 May, 2013 [facility] [address] [id number] [address] [place] [address], [place] [address] 14 May, 2013 [facility] [address] [id number] [address] [place] [address], [place] [address] 18 Apr, 2013 [facility] [address] [id number] [address] [place] [address], [place] [address] 20 Mar, 2013 [facility] [address] [id number] [address] [place] [address], [place] [address] Mar, [facility] [address] [id number] [address] [place] [address], [place] [address] Mar, [facility] [address] [id number] [address] [place] [address], [place] [address] Mar, [facility] [address] [id number] [address] [place] [address], [place] [address] 18 Mar, 2013 [facility] [address] [id number] [address] [place] [address], [place] [address] 18 Mar, 2013 [facility] [address] [id number] [address] [place] [address], [place] [address] 18 Mar, 2013 [facility] [address] [id number] [address] [place] [address], [place] [address] 18 Mar, 2013 [facility] [address] [id number] [address] [place] [address], [place] [address] Mar, [facility] [address] [id number] [address] [place] [address], [place] [address] 11 Mar, 2013 [facility] [address] [id number] [address] [place] [address], [place] [address] 04 Mar, 2013 [facility] [address] [id number] [address] [place] [address], [place] [address] 04 Mar, 2013 [facility] [address] [id number] [address] [place] [address], [place] [address] 15 Feb, 2013 [facility] [address] [id number] [address] [place] [address], [place] [address] 15 Feb, 2013 [facility] [address] [id number] [address] [place] [address], [place] [address] Feb, [facility] [address] [id number] [address] [place] [address], [place] [address] Feb, [facility] [address] [id number] [address] [place] [address], [place] [address] Feb, [facility] [address] [id number] [address] [place] [address], [place] [address] Jan, [facility] [address] [id number] [address] [place] [address], [place] [address] Dec, [facility] [address] [id number] [address] [place] [address], [place] [address] Dec, [facility] [address] [id number] [address] [place] [address], [place] [address] Dec, [facility] [address] [id number] [address] [place] [address], [place] [address] Nov, [facility] [address] [id number] [address] [place] [address], [place] [address] Nov, [facility] [address] [id number] [address] [place] [address], [place] [address] Nov, [facility] [address] [id number] [address] [place] [address], [place] [address] Oct, [facility] [address] [id number] [address] [place] [address], [place] [address] Oct, [facility] [address] [id number] [address] [place] [address], [place] [address] Oct, [facility] [address] [id number] [address] [place] [address], [place] [address] September, [facility] [address] [id number] [address] [place] [address] [place] [address] September, [facility] [address] [id number] [address] [place] [address], [place] [address] September, [facility] [address] [id number] [address] [place] [address], [place] [address] September, [facility] [address] [id number] [address] [place] [address], [place] [address] September, [facility] [address] [id number] [address] [place] [address], [place] [address] Aug, [facility] [address] [id number] [address] [place] [address], [place] [address] Aug, [facility] [address] [id number] [address] [place] [address], [place] [address] Aug, [facility] [address] [id number] [address] [place] [address], [place] [address] Jul, [facility] [address] [id number] [address] [place] [address], [place] [address] Jul, [facility] [address] [id number] [address] [place] [address], [place] [address] Jul, [facility] [address] [id number] [address] [place] [address], [place] [address] Jul, [facility] [address] [id number] [address] [place] [address], [place] [address] Jul, [facility] [address] [id number] [address] [place] [address], [place] [address] Jul, [facility] [address] [id number] [address] [place] [address], [place] [address] Jul, [facility] [address] [id number] [address] [place] [address], [place] [address] May, [facility] [address] [id number] [address] [place] [address], [place] [address] May, [facility] [address] [id number] [address] [place] [address], [place] [address] May, [facility] [address] [id number] [address] [place] [address], [place] [address] Apr, [facility] [address] [id number] [address] [place] [address], [place] [address] Apr, [facility] [address] [id number] [address] [place] [address], [place] [address] Apr, [facility] [address] [id number] [address] [place] [address], [place] [address] Apr, [facility] [address] [id number] [address] [place] [address], [place] [address] Apr, [facility] [address] [id number] [address] [place] [address], [place] [address] Mar, [facility] [address] [id number] [address] [place] [address], [place] [address] Mar, [facility] [address] [id number] [address] [place] [address], [place] [address] Mar, [facility] [address] [id number] [address] [place] [address], [place] [address] Mar, [facility] [address] [id number] [address] [place] [address], [place] [address] Feb, [facility] [address] [id number] [address] [place] [address], [place] [address] Feb, [facility] [address] [id number] [address] [place] [address], [place] [address] Feb, [facility] [address] [id number] [address] [place] [address], [place] [address] Feb, [facility] [address] [id number] [address] [place] [address], [place] [address] Feb, [facility] [address] [id number] [address] [place] [address], [place] [address] Jan, [facility] [address] [id number] [address] [place] [address], [place] [address] Dec, [facility] [address] [id number] [address] [place] [address], [place] [address] Dec, [facility] [address] [id number] [address] [place] [address], [place] [address] Dec, [facility] [address] [id number] [address] [place] [address], [place] [address] Nov, [facility] [address] [id number] [address] [place] [address], [place] [address] Nov, [facility] [address] [id number] [address] [place] [address], [place] [address] Nov, [facility] [address] [id number] [address] [place] [address], [place] [address] Oct, [facility] [address] [id number] [address] [place] [address], [place] [address] Oct, [facility] [address] [id number] [address] [place] [address], [place] [address] Oct, [facility] [address] [id number] [address] [place] [address], [place] [address] Oct, [facility] [address] [id number] [address] [place] [address], [place] [address] September, [facility] [address] [id number] [address] [place] [address], [place] [address] September, [facility] [address] [id number] [address] [place] [address], [place] [address] 30 Aug, 2011 [facility] [address] [id number] [address] [place] [address], [place] [address] 23 Aug, 2011 [facility] [address] [id number] [address] [place] [address], [place] [address] Aug, [facility] [address] [id number] [address] [place] [address], [place] [address] Aug, [facility] [address] [id number] [address] [place] [address], [place] [address] Aug, [facility] [address] [id number] [address] [place] [address], [place] [address] Aug, [facility] [address] [id number] [address] [place] [address], [place] [address] Aug, [facility] [address] [id number] [address] [place] [address], [place] [address] Jul, [facility] [address] [id number] [address] [place] [address], [place] [address] Jul, [facility] [address] [id number] [address] [place] [address], [place] [address] Jul, [facility] [address] [id number] [address] [place] [address], [place] [address] May, [facility] [address] [id number] [address] [place] [address], [place] [address] May, [facility] [address] [id number] [address] [place] [address], [place] [address] May, [facility] [address] [id number] [address] [place] [address], [place] [address] Apr, [facility] [address] [id number] [address] [place] [address], [place] [address] Apr, [facility] [address] [id number] [address] [place] [address], [place] [address] Mar, [facility] [address] [id number] [address] [place] [address], [place] [address] Mar, [facility] [address] [id number] [address] [place] [address], [place] [address] Mar, [facility] [address] [id number] [address] [place] [address], [place] [address] Mar, [facility] [address] [facility] [id number] [address] [place] [id number] Mar, [facility] [address] [facility] [id number] [address] [place] [id number] Mar, [facility] [address] [facility] [id number] [address] [place] [id number] Feb, [facility] [address] [facility] [id number] [address] [place] [id number] Feb, [facility] [address] [facility] [id number] [address] [place] [id number] Feb, IMMUNIZATIONS No Known Immunizations SOCIAL HISTORY [...]
--- OUTSIDE RECORDS SUMMARY | 2020-01-03 07:44 | XMS REPORT ---
Author Author Tra SILVERIO Organization [facility] Address [address] [place] [address] Care Team Providers Care Leasing Assistant Name Role Phone FERNY SILVERIO Unavailable PROBLEMS Type Condition ICD9-CM Code SQQ89-GI Code Onset Dates Condition S tatus SNOMED Code Problem Insulin long-term use Z79.4 Active 582724773 Problem Hypertension I10 Active 1038458 3 Problem Diabetes E11.9 Active 04979212 Problem Hypoxia R09.02 Active 047675370 Problem Anxiety F41.9 Active 90494159 Problem Port catheter in place Z95.828 Active 513727450 Problem Pressure ulcer of other site, stage 3 L89.893 Active 721828907 Problem COPD (chronic obstructive pulmonary disease) J44.9 Active 90366651 Problem Type 2 diabetes mellitus wit h diabetic peripheral angiopathy without gangrene E11.51 Active 280333923 Problem Back pain M54.9 Active 407496232 Problem PAD (peripheral artery disease) I73.9 Active 723024255 Problem Lumbar radiculopathy, chronic M54.16 Active 343329785 Problem Recurrent major depressive disorder, in full remission F33.42 Active 396549039 Problem shelter current use of insulin Z79.4 Active 459782742 ALLERGIES No Information ENCOUNTERS Encounter Location Date Diagnosis [facility] [address] [facility] [id number] [address] [place] [phone] Dec, [facility] [address] [facility] [id number] [address] [place] [phone] Dec, [facility] [address] [facility] [id number] [address] [place] [phone] Nov, Anxiety F41.9 [facility] [address] [facility] [id number] [address] [place] [phone] Nov, [facility] [address] [id number] [address] [place] [phone] 30 Nov, 2018 Back pain M54.9 [facility] [address] [id number] [address] [place] [address], [place] [address] Nov, [facility] [address] [id number] [address] [place] [phone] Nov, Back pain M54.9 [facility] [address] [id number] [address] [place] [address], [place] [address] Nov, Anxiety F41.9 [facility] [address] [id number] [address] [place] [address], [place] [address] Nov, [facility] [address] [id number] [address] [place] [phone] Oct, Back pain M54.9 [facility] [address] [id number] [address] [place] [phone] Oct, [facility] [address] [id number] [address] [place] [phone] Oct, [facility] [address] [id number] [address] [place] [phone] Oct, [facility] [address] [id number] [address] [place] [phone] September, Back pain M54.9 [facility] [address] [id number] [address] [place] [address] September, [facility] [address] [id number] [address] [place] [phone] September, [facility] [address] [id number] [address] [place] [phone] September, [facility] [address] [id number] [address] [place] [phone] Aug, Back pain M54.9 [facility] [address] [id number] [address] [place] [phone] Aug, Anxiety F41.9 [facility] [address] [id number] [address] [place] [phone] Aug, [facility] [address] [id number] [address] [place] [phone] Aug, Pressure ulcer of other site , stage 3 L89.893 and COPD (chronic obstructive pulmonary disease) J44.9 [facility] [address] [id number] [address] [place] [phone] Aug, History of smoking Z87.891 [facility] [address] [id number] [address] [place] [phone] Jul, Type 2 diabetes mellitus wit h diabetic peripheral angiopathy without gangrene E11.51 [facility] [address] [id number] [address] [place] [phone] Jul, Back pain M54.9 [facility] [address] [id number] [address] [place] [phone] Jul, Anxiety F41.9 [facility] [address] [id number] [address] [place] [phone] Jul, [facility] [address] [id number] [address] [place] [phone] Jul, Back pain M54.9 [facility] [address] [id number] [address] [place] [phone] Jul, Back pain M54.9 [facility] [address] [id number] [address] [place] [phone] Jul, Lumbar radiculopathy, chroni c M54.16 ; Hypertension I10 and Type 2 diabetes mellitus with diabetic peripheral angiopathy without gangrene E11.51 [facility] [address] [id number] [address] [place] [address] Jul, Back pain M54.9 [facility] [address] [id number] [address] [place] [phone] Jul, Back pain M54.9 and Anxiety F41.9 [facility] [address] [id number] [address] [place] [phone] Jul, [facility] [address] [id number] [address] [place] [phone] May, Back pain M54.9 and Anxiety F41.9 [facility] [address] [facility] [id number] [address] [place] [phone] May, [facility] [address] [facility] [id number] [address] [place] [phone] Apr, Radiculopathy of lumbar rhiannon on M54.16 ; Back pain M54.9 and Anxiety F41.9 [facility] [address] [facility] [id number] [address] [place] [address] Apr, Diabetes E11.9 ; Muscle spas m M62.838 and Lumbar radiculopathy, chronic M54.16 [facility] [address] [facility] [id number] [address] [place] [phone] Apr, [facility] [address] [facility] [id number] [address] [place] [phone] Apr, [facility] [address] [facility] [id number] [address] [place] [phone] Mar, Back pain M54.9 and Anxiety F41.9 [facility] [address] [facility] [id number] [address] [place] [phone] Mar, [facility] [address] [id number] [address] [place] [phone] Mar, [facility] [address] [facility] [id number] [address] [place] [phone] Mar, [facility] [address] [facility] [id number] [address] [place] [phone] Mar, Encounter for immunization Z 23 [facility] [address] [id number] [address] [place] [phone] Feb, Back pain M54.9 and Anxiety F41.9 [facility] [address] [id number] [address] [place] [phone] 04 Feb, 2018 Back pain M54.9 and Anxiety F41.9 [facility] [address] [id number] [address] [place] [phone] Jan, Back pain M54.9 and Anxiety F41.9 [facility] [address] [id number] [address] [place] [phone] Jan, [facility] [address] [id number] [address] [place] [phone] Dec, [facility] [address] [id number] [address] [place] [phone] Dec, Back pain M54.9 and Anxiety F41.9 [facility] [address] [id number] [address] [place] [phone] 13 Dec, 2017 Diabetes E11.9 ; Type 2 diab etes mellitus with diabetic peripheral angiopathy without gangrene E11.51 ; Lumbar radiculopathy, chronic M54.16 ; COPD (chronic obstructive pulmonary disease) J44.9 and Anxiety F41.9 [facility] [address] [id number] [address] [place] [phone] Dec, Back pain M54.9 and Anxiety F41.9 [facility] [address] [id number] [address] [place] [phone] Nov, Back pain M54.9 and Anxiety F41.9 [facility] [address] [id number] [address] [place] [phone] Oct, [facility] [address] [id number] [address] [place] [phone] 2017 Back pain M54.9 and Anxiety F41.9 [facility] [address] [id number] [address] [place] [phone] September, Anxiety F41.9 and Back pain M54.9 [facility] [address] [id number] [address] [place] [phone] September, Diabetes E11.9 ; Hypertensio n I10 ; COPD (chronic obstructive pulmonary disease) J44.9 and Lumbar radiculopathy, chronic M54.16 [facility] [address] [id number] [address] [place] [phone] September, Anxiety F41.9 [facility] [address] [id number] [address] [place] [phone] Aug, [facility] [address] [id number] [address] [place] [phone] Aug, [place] [address] [id number] [address] [place] [phone] Aug, Anxiety F41.9 and Back pain M54.9 [facility] [address] [id number] [address] [place] [phone] Aug, Medicare annual wellness vis it, initial [...] and shelter current use of insulin Z79.4 [facility] [address] [id number] [address] [place] [phone] Jul, Back pain M54.9 [facility] [address] [id number] [address] [place] [phone] Jul, [facility] [address] [id number] [address] [place] [phone] Jul, Anxiety F41.9 and Back pain M54.9 [facility] [address] [id number] [address] [place] [phone] Jul, Diabetes E11.9 [facility] [address] [id number] [address] [place] [phone] May, [facility] [address] [id number] [address] [place] [phone] May, Diabetes E11.9 ; Anxiety F41 .9 ; Back pain M54.9 and COPD (chronic obstructive pulmonary disease) J44.9 [facility] [address] [id number] [address] [place] [phone] May, Back pain M54.9 [facility] [address] [id number] [address] [place] [phone] May, [facility] [address] [id number] [address] [place] [phone] Apr, Back pain M54.9 [facility] [address] [id number] [address] [place] [phone] Mar, Back pain M54.9 [facility] [address] [id number] [address] [place] [phone] Mar, [facility] [address] [id number] [address] [place] [phone] Mar, [facility] [address] [id number] [address] [place] [phone] 14 Mar, 2017 Radiculopathy of lumbar rhiannon on M54.16 [facility] [address] [id number] [address] [place] [phone] 13 Mar, 2017 [facility] [address] [id number] [address] [place] [phone] 07 Mar, 2017 Encounter for immunization Z 23 and Lumbar radiculopathy, chronic M54.16 [facility] [address] [id number] [address] [place] [phone] Mar, Back pain M54.9 and Anxiety F41.9 [facility] [address] [id number] [address] [place] [phone] Feb, Acute bilateral low back boy n with left-sided sciatica M54.42 and Acute bilateral low back pain with right-sided sciatica M54.41 [facility] [address] [id number] [address] [place] [phone] Feb, [facility] [address] [id number] [address] [place] [phone] Feb, Back pain M54.9 [facility] [address] [id number] [address] [place] [phone] 05 Jan, 2017 Back pain M54.9 and Anxiety F41.9 [facility] [address] [id number] [address] [place] [phone] Jan, Diabetes E11.9 [facility] [address] [id number] [address] [place] [phone] Dec, Diabetes E11.9 ; Back pain M 54.9 ; Anxiety F41.9 and Insulin long- term use Z79.4 [facility] [address] [id number] [address] [place] [phone] Dec, Anxiety F41.9 [facility] [address] [id number] [address] [place] [phone] Dec, Back pain M54.9 [facility] [address] [id number] [address] [place] [phone] Nov, Back pain M54.9 [facility] [address] [id number] [address] [place] [phone] Oct, Back pain M54.9 and Anxiety F41.9 [facility] [address] [id number] [address] [place] [phone] September, Back pain M54.9 [facility] [address] [id number] [address] [place] [phone] September, Back pain M54.9 and Anxiety F41.9 [facility] [address] [id number] [address] [place] [phone] Aug, Diabetes E11.9 ; Anxiety F41 .9 ; Back pain M54.9 and PAD (peripheral artery disease) I73.9 [facility] [address] [id number] [address] [place] [phone] Aug, Anxiety F41.9 [facility] [address] [id number] [address] [place] [address] Aug, Back pain M54.9 [facility] [address] [id number] [address] [place] [phone] Jul, Back pain M54.9 [facility] [address] [id number] [address] [place] [phone] Jul, Back pain M54.9 [facility] [address] [id number] [address] [place] [phone] Jul, Back pain M54.9 [facility] [address] [id number] [address] [place] [phone] Jul, Dorsalgia M54.9 [facility] [address] [id number] [address] [place] [phone] Jul, [facility] [address] [id number] [address] [place] [phone] May, Back pain M54.9 [facility] [address] [id number] [address] [place] [address] May, Diabetes E11.9 ; Anxiety F41 .9 ; Port catheter in place Z95.828 ; Encounter for immunization Z23 and Insulin long-term use Z79.4 [facility] [address] [id number] [address] [place] [phone] Apr, Back pain M54.9 [facility] [address] [id number] [address] [place] [phone] Apr, Back pain M54.9 [facility] [address] [id number] [address] [place] [phone] Apr, [facility] [address] [id number] [address] [place] [phone] Apr, Back pain M54.9 [facility] [address] [id number] [address] [place] [phone] Mar, COPD (chronic obstructive pu lmonary disease) J44.9 [facility] [address] [id number] [address] [place] [phone] Feb, [facility] [address] [id number] [address] [place] [phone] 30 Jan, 2016 [facility] [address] [id number] [address] [place] [phone] Jan, [facility] [address] [id number] [address] [place] [phone] Jan, [facility] [address] [id number] [address] [place] [phone] Jan, [facility] [address] [id number] [address] [place] [phone] Dec, Diabetes E11.9 ; Hypoxia R09 .02 and Back pain M54.9 [facility] [address] [id number] [address] [place] [phone] Dec, [facility] [address] [id number] [address] [place] [phone] Nov, [facility] [address] [id number] [address] [place] [phone] Oct, Anxiety F41.9 [facility] [address] [id number] [address] [place] [phone] Oct, Back pain M54.9 [facility] [address] [facility] [id number] [address] [place] [phone] September, Back pain M54.9 [facility] [address] [facility] [id number] [address] [place] [phone] September, Diabetes E11.9 [facility] [address] [facility] [id number] [address] [place] [phone] September, [facility] [address] [facility] [id number] [address] [place] [phone] September, Diabetes E11.9 ; Insulin sarai g-term use Z79.4 and Back pain M54.9 [facility] [address] [facility] [id number] [address] [place] [phone] Aug, Back pain M54.9 [facility] [address] [facility] [id number] [address] [place] [phone] Aug, Back pain M54.9 ; Anxiety F4 1.9 and Arthropathy, unspecified M12.9 [facility] [address] [facility] [id number] [address] [place] [phone] Jul, Back pain M54.9 [facility] [address] [facility] [id number] [address] [place] [phone] Jul, Anxiety F41.9 [facility] [address] [facility] [id number] [address] [place] [phone] Jul, Back pain M54.9 [facility] [address] [facility] [id number] [address] [place] [phone] Jul, [facility] [address] [facility] [id number] [address] [place] [phone] Jul, [facility] [address] [facility] [id number] [address] [place] [phone] May, Back pain M54.9 ; Diabetes E 11.9 ; Insulin long-term use Z79.4 ; COPD (chronic obstructive pulmonary disease) J44.9 and Hypertension I10 [facility] [address] [id number] [address] [place] [phone] May, Chronic pain G89.29 [facility] [address] [id number] [address] [place] [phone] Apr, [facility] [address] [facility] [id number] [address] [place] [phone] Apr, [facility] [address] [id number] [address] [place] [phone] Mar, [facility] [address] [id number] [address] [place] [phone] Mar, Encounter for immunization Z 23 and Diabetes E11.9 [facility] [address] [id number] [address] [place] [phone] Feb, [facility] [address] [facility] [id number] [address] [place] [phone] Feb, [facility] ([facility] [address] [facility] [id number] [address] [place] [phone] Jan, [facility] ([facility] [address] [id number] [address] [place] [phone] Jan, [facility] ([facility] [address] [facility] [id number] [address] [place] [phone] Dec, [facility] ([facility] [address] [facility] [id number] [address] [place] [phone] Dec, [facility] ([facility] [address] [facility] [id number] [address] [place] [phone] Dec, Unspecified arthropathy, sit e unspecified 716.90 and Diabetes mellitus type 2, uncontrolled 250.02 [facility] ([facility] [address] [id number] [address] [place] [phone] Dec, [facility] ([facility] [address] [facility] [id number] [address] [place] [phone] Nov, [facility] ([facility] [address] [facility] [id number] [address] [place] [phone] 08 Oct, 2014 [facility] [address] [id number] [address] [place] [address], [place] [phone] September, [facility] [address] [id number] [address] [place] [address], [place] [address] September, [facility] [address] [id number] [address] [place] [address], [place] [phone] September, [facility] [address] [id number] [address] [place] [address], [place] [address] September, [facility] [address] [id number] [address] [place] [address], [place] [id number] 14 Aug, 2014 [facility] [address] [id number] [address] [place] [address], [place] [phone] Aug, [facility] [address] [id number] [address] [place] [address], [place] [phone] 18 Jul, 2014 [facility] [address] [id number] [address] [place] [address], [place] [address] 18 Jul, 2014 [facility] [address] [id number] [address] [place] [address], [place] [address] 16 Jul, 2014 [facility] [address] [id number] [address] [place] [address], [place] [address] 16 Jul, 2014 [facility] [address] [id number] [address] [place] [address], [place] [address] 16 Jul, 2014 [facility] [address] [id number] [address] [place] [address], [place] [address] 16 Jul, 2014 [facility] [address] [id number] [address] [place] [address], [place] [address] 16 Jul, 2014 [facility] [address] [id number] [address] [place] [address], [place] [address] 16 Jul, 2014 [facility] [address] [id number] [address] [place] [address], [place] [address] 16 Jul, 2014 [facility] [address] [id number] [address] [place] [address], [place] [address] 13 Jul, 2014 [facility] [address] [id number] [address] [place] [address], [place] [address] 13 Jul, 2014 [facility] [address] [id number] [address] [place] [address], [place] [address] 09 Jul, 2014 [facility] [address] [id number] [address] [place], [place] [address], [place] [address] 09 Jul, 2014 [facility] [address] [id number] [address] [place] [address], [place] [address] 17 Jul, 2014 [facility] [address] [id number] [address] [place] [address], [place] [address] 17 Jul, 2014 [facility] [address] [id number] [address] [place] [address], [place] [address] 16 Jul, 2014 [facility] [address] [id number] [address] [place] [address], [place] [address] 16 Jul, 2014 [facility] [address] [id number] [address] [place] [address], [place] [address] 16 Jul, 2014 [facility] [address] [id number] [address] [place] [address], [place] [address] 16 Jul, 2014 [facility] [address] [id number] [address] [place] [address], [place] [address] 16 Jul, 2014 [facility] [address] [id number] [address] [place] [address] 16 Jul, 2014 [facility] [address] [id number] [address] [place] [address], [place] [address] 16 Jul, 2014 [facility] [address] [id number] [address] [place] [address], [place] [address] 16 Jul, 2014 [facility] [address] [id number] [address] [place] [address] 16 Jul, 2014 [facility] [address] [id number] [address] [place] [address] Jul, [facility] [address] [id number] [address] [place] [address], [place] [address] Jul, [facility] [address] [id number] [address] [place] [address], [place] [address] Jul, [facility] [address] [id number] [address] [place] [address], [place] [address] Jul, [facility] [address] [id number] [address] [place] [address], [place] [address] Jul, [facility] [address] [id number] [address] [place] [address], [place] [address] May, [facility] [address] [id number] [address] [place] [address], [place] [address] May, [facility] [address] [id number] [address] [place] [address], [place] [address] May, [facility] [address] [id number] [address] [place] [address], [place] [address] May, [facility] [address] [id number] [address] [place] [address], [place] [address] May, [facility] [address] [id number] [address] [place] [address], [place] [address] May, [facility] [address] [id number] [address] [place] [address], [place] [address] May, [facility] [address] [id number] [address] [place] [address], [place] [address] May, [facility] [address] [id number] [address] [place] [address], [place] [address] May, [facility] [address] [id number] [address] [place] [address], [place] [address] May, [facility] [address] [id number] [address] [place] [address], [place] [address] Apr, [facility] [address] [id number] [address] [place] [address], [place] [address] Apr, [facility] [address] [id number] [address] [place] [address], [place] [address] Apr, [facility] [address] [id number] [address] [place] [address], [place] [address] Apr, [facility] [address] [id number] [address] [place] [address], [place] [address] Apr, [facility] [address] [id number] [address] [place] [address], [place] [address] Apr, [facility] [address] [id number] [address] [place] [address], [place] [address] Mar, [facility] [address] [id number] [address] [place] [address], [place] [address] Mar, [facility] [address] [id number] [address] [place] [address], [place] [address] Mar, [facility] [address] [id number] [address] [place] [address], [place] [address] Mar, [facility] [address] [id number] [address] [place] [address], [place] [address] Mar, [facility] [address] [id number] [address] [place] [address], [place] [address] Mar, [facility] [address] [id number] [address] [place] [address], [place] [address] Mar, [facility] [address] [id number] [address] [place] [address], [place] [address] Mar, [facility] [address] [id number] [address] [place] [address], [place] [address] Mar, [facility] [address] [id number] [address] [place] [address], [place] [address] Mar, [facility] [address] [id number] [address] [place] [address] Mar, [facility] [address] [id number] [address] [place] [address], [place] [address] Feb, [facility] [address] [id number] [address] [place] [address], [place] [address] Feb, [facility] [address] [id number] [address] [place] [address], [place] [address] Feb, [facility] [address] [id number] [address] [place] [address], [place] [address] Feb, [facility] [address] [id number] [address] [place] [address], [place] [address] Feb, [facility] [address] [id number] [address] [place] [address], [place] [address] Feb, [facility] [address] [id number] [address] [place] [address], [place] [address] Feb, [facility] [address] [id number] [address] [place] [address], [place] [address] Feb, [facility] [address] [id number] [address] [place] [address], [place] [address] Feb, [facility] [address] [id number] [address] [place] [address], [place] [address] Feb, [facility] [address] [id number] [address] [place] [address], [place] [address] 22 Jan, 2014 [facility] [address] [id number] [address] [place] [address], [place] [address] 22 Jan, 2013 [facility] [address] [id number] [address] [place] [address], [place] [address] 16 Jan, 2013 [facility] [address] [id number] [address] [place] [address], [place] [address] 16 Jan, 2013 [facility] [address] [id number] [address] [place] [address], [place] [address] 12 Jan, 2013 [facility] [address] [id number] [facility] [place] [address] Jan, [facility] [address] [id number] [address] [place] [address], [place] [address] Jan, [facility] [address] [id number] [address] [place] [address], [place] [address] Dec, [facility] [address] [id number] [address] [place] [address], [place] [address] Dec, [facility] [address] [id number] [address] [place] [address], [place] [address] Dec, [facility] [address] [id number] [address] [place] [address], [place] [address] Dec, [facility] [address] [id number] [address] [place] [address], [place] [address] Dec, [facility] [address] [id number] [address] [place] [address], [place] [address] Dec, [facility] [address] [id number] [address] [place] [address], [place] [address] Dec, [facility] [address] [id number] [address] [place] [address], [place] [address] Dec, [facility] [address] [id number] [address] [place] [address], [place] [address] Oct, [facility] [address] [id number] [address] [place] [address], [place] [address] Oct, [facility] [address] [id number] [address] [place] [address], [place] [address] September, [facility] [address] [id number] [address] [place] [address], [place] [address] September, [facility] [address] [id number] [address] [place] [address], [place] [address] September, [facility] [address] [id number] [address] [place] [address], [place] [address] September, [facility] [address] [id number] [address] [place] [address], [place] [address] September, [facility] [address] [id number] [address] [place] [address], [place] [address] September, [facility] [address] [id number] [address] [place] [address], [place] [address] September, [facility] [address] [id number] [address] [place] [address], [place] [address] Aug, [facility] [address] [id number] [address] [place] [address], [place] [address] Aug, [facility] [address] [id number] [address] [place] [address], [place] [address] Jul, [facility] [address] [id number] [address] [place] [address], [place] [address] Jul, [facility] [address] [id number] [address] [place] [address], [place] [address] Jul, [facility] [address] [id number] [address] [place] [address], [place] [address] Jul, [facility] [address] [id number] [address] [place] [address], [place] [address] Jul, [facility] [address] [id number] [address] [place] [address], [place] [address] Jul, [facility] [address] [id number] [address] [place] [address], [place] [address] Jul, [facility] [address] [id number] [address] [place] [address], [place] [address] Jul, [facility] [address] [id number] [address] [place] [address], [place] [address] May, [facility] [address] [id number] [address] [place] [address], [place] [address] May, [facility] [address] [id number] [address] [place] [address], [place] [address] 14 May, 2013 [facility] [address] [id number] [address] [place] [address], [place] [address] 14 May, 2013 [facility] [address] [id number] [address] [place] [address], [place] [address] 18 Apr, 2013 [facility] [address] [id number] [address] [place] [address], [place] [address] 20 Mar, 2013 [facility] [address] [id number] [address] [place] [address], [place] [address] Mar, [facility] [address] [id number] [address] [place] [address], [place] [address] Mar, [facility] [address] [id number] [address] [place] [address], [place] [address] Mar, [facility] [address] [id number] [address] [place] [address], [place] [address] 18 Mar, 2013 [facility] [address] [id number] [address] [place] [address], [place] [address] 18 Mar, 2013 [facility] [address] [id number] [address] [place] [address], [place] [address] 18 Mar, 2013 [facility] [address] [id number] [address] [place] [address], [place] [address] 18 Mar, 2013 [facility] [address] [id number] [address] [place] [address], [place] [address] Mar, [facility] [address] [id number] [address] [place] [address], [place] [address] 11 Mar, 2013 [facility] [address] [id number] [address] [place] [address], [place] [address] 04 Mar, 2013 [facility] [address] [id number] [address] [place] [address], [place] [address] 04 Mar, 2013 [facility] [address] [id number] [address] [place] [address], [place] [address] 15 Feb, 2013 [facility] [address] [id number] [address] [place] [address], [place] [address] 15 Feb, 2013 [facility] [address] [id number] [address] [place] [address], [place] [address] Feb, [facility] [address] [id number] [address] [place] [address], [place] [address] Feb, [facility] [address] [id number] [address] [place] [address], [place] [address] Feb, [facility] [address] [id number] [address] [place] [address], [place] [address] Jan, [facility] [address] [id number] [address] [place] [address], [place] [address] Dec, [facility] [address] [id number] [address] [place] [address], [place] [address] Dec, [facility] [address] [id number] [address] [place] [address], [place] [address] Dec, [facility] [address] [id number] [address] [place] [address], [place] [address] Nov, [facility] [address] [id number] [address] [place] [address], [place] [address] Nov, [facility] [address] [id number] [address] [place] [address], [place] [address] Nov, [facility] [address] [id number] [address] [place] [address], [place] [address] Oct, [facility] [address] [id number] [address] [place] [address], [place] [address] Oct, [facility] [address] [id number] [address] [place] [address], [place] [address] Oct, [facility] [address] [id number] [address] [place] [address], [place] [address] September, [facility] [address] [id number] [address] [place] [address] [place] [address] September, [facility] [address] [id number] [address] [place] [address], [place] [address] September, [facility] [address] [id number] [address] [place] [address], [place] [address] September, [facility] [address] [id number] [address] [place] [address], [place] [address] September, [facility] [address] [id number] [address] [place] [address], [place] [address] Aug, [facility] [address] [id number] [address] [place] [address], [place] [address] Aug, [facility] [address] [id number] [address] [place] [address], [place] [address] Aug, [facility] [address] [id number] [address] [place] [address], [place] [address] Jul, [facility] [address] [id number] [address] [place] [address], [place] [address] Jul, [facility] [address] [id number] [address] [place] [address], [place] [address] Jul, [facility] [address] [id number] [address] [place] [address], [place] [address] Jul, [facility] [address] [id number] [address] [place] [address], [place] [address] Jul, [facility] [address] [id number] [address] [place] [address], [place] [address] Jul, [facility] [address] [id number] [address] [place] [address], [place] [address] Jul, [facility] [address] [id number] [address] [place] [address], [place] [address] May, [facility] [address] [id number] [address] [place] [address], [place] [address] May, [facility] [address] [id number] [address] [place] [address], [place] [address] May, [facility] [address] [id number] [address] [place] [address], [place] [address] Apr, [facility] [address] [id number] [address] [place] [address], [place] [address] Apr, [facility] [address] [id number] [address] [place] [address], [place] [address] Apr, [facility] [address] [id number] [address] [place] [address], [place] [address] Apr, [facility] [address] [id number] [address] [place] [address], [place] [address] Apr, [facility] [address] [id number] [address] [place] [address], [place] [address] Mar, [facility] [address] [id number] [address] [place] [address], [place] [address] Mar, [facility] [address] [id number] [address] [place] [address], [place] [address] Mar, [facility] [address] [id number] [address] [place] [address], [place] [address] Mar, [facility] [address] [id number] [address] [place] [address], [place] [address] Feb, [facility] [address] [id number] [address] [place] [address], [place] [address] Feb, [facility] [address] [id number] [address] [place] [address], [place] [address] Feb, [facility] [address] [id number] [address] [place] [address], [place] [address] Feb, [facility] [address] [id number] [address] [place] [address], [place] [address] Feb, [facility] [address] [id number] [address] [place] [address], [place] [address] Jan, [facility] [address] [id number] [address] [place] [address], [place] [address] Dec, [facility] [address] [id number] [address] [place] [address], [place] [address] Dec, [facility] [address] [id number] [address] [place] [address], [place] [address] Dec, [facility] [address] [id number] [address] [place] [address], [place] [address] Nov, [facility] [address] [id number] [address] [place] [address], [place] [address] Nov, [facility] [address] [id number] [address] [place] [address], [place] [address] Nov, [facility] [address] [id number] [address] [place] [address], [place] [address] Oct, [facility] [address] [id number] [address] [place] [address], [place] [address] Oct, [facility] [address] [id number] [address] [place] [address], [place] [address] Oct, [facility] [address] [id number] [address] [place] [address], [place] [address] Oct, [facility] [address] [id number] [address] [place] [address], [place] [address] September, [facility] [address] [id number] [address] [place] [address], [place] [address] September, [facility] [address] [id number] [address] [place] [address], [place] [address] 30 Aug, 2011 [facility] [address] [id number] [address] [place] [address], [place] [address] 23 Aug, 2011 [facility] [address] [id number] [address] [place] [address], [place] [address] Aug, [facility] [address] [id number] [address] [place] [address], [place] [address] Aug, [facility] [address] [id number] [address] [place] [address], [place] [address] Aug, [facility] [address] [id number] [address] [place] [address], [place] [address] Aug, [facility] [address] [id number] [address] [place] [address], [place] [address] Aug, [facility] [address] [id number] [address] [place] [address], [place] [address] Jul, [facility] [address] [id number] [address] [place] [address], [place] [address] Jul, [facility] [address] [id number] [address] [place] [address], [place] [address] Jul, [facility] [address] [id number] [address] [place] [address], [place] [address] May, [facility] [address] [id number] [address] [place] [address], [place] [address] May, [facility] [address] [id number] [address] [place] [address], [place] [address] May, [facility] [address] [id number] [address] [place] [address], [place] [address] Apr, [facility] [address] [id number] [address] [place] [address], [place] [address] Apr, [facility] [address] [id number] [address] [place] [address], [place] [address] Mar, [facility] [address] [id number] [address] [place] [address], [place] [address] Mar, [facility] [address] [id number] [address] [place] [address], [place] [address] Mar, [facility] [address] [id number] [address] [place] [address], [place] [address] Mar, [facility] [address] [facility] [id number] [address] [place] [address] Mar, [facility] [address] [facility] [id number] [address] [place] [address] Mar, [facility] [address] [facility] [id number] [address] [place] [address] Feb, [facility] [address] [facility] [id number] [address] [place] [address] Feb, [facility] [address] [facility] [id number] [address] [place] [address] Feb, IMMUNIZATIONS No Known Immunizations SOCIAL HISTORY [...]
--- OUTSIDE RECORDS SUMMARY | 2020-01-03 07:45 | XMS REPORT ---
Author Author Tra SILVERIO Organization [facility] Address [address] [place] [address] Care Team Providers Care Web Analyst Name Role Phone FERNY SILVERIO Unavailable PROBLEMS Type Condition ICD9-CM Code HQI10-VN Code Onset Dates Condition S tatus SNOMED Code Problem Insulin long-term use Z79.4 Active 429282516 Problem Hypertension I10 Active 4367487 3 Problem Diabetes E11.9 Active 95232003 Problem Hypoxia R09.02 Active 894618193 Problem Anxiety F41.9 Active 55828216 Problem Port catheter in place Z95.828 Active 431114241 Problem Pressure ulcer of other site, stage 3 L89.893 Active 950641961 Problem COPD (chronic obstructive pulmonary disease) J44.9 Active 89742382 Problem Type 2 diabetes mellitus wit h diabetic peripheral angiopathy without gangrene E11.51 Active 898802151 Problem Back pain M54.9 Active 798401886 Problem PAD (peripheral artery disease) I73.9 Active 830572939 Problem Lumbar radiculopathy, chronic M54.16 Active 652881553 Problem Recurrent major depressive disorder, in full remission F33.42 Active 042547009 Problem [facility] current use of insulin Z79.4 Active 383360486 ALLERGIES No Information ENCOUNTERS Encounter Location Date Diagnosis [facility] [address] [facility] [id number] [address] [place] [id number] Dec, [facility] [address] [facility] [id number] [address] [place] [phone] Nov, Anxiety F41.9 [facility] [address] [facility] [id number] [address] [place] [id number] Nov, [facility] [address] [facility] [id number] [address] [place] [id number] Nov, Back pain M54.9 [facility] [address] [id number] [address] [place] [id number] Nov, [facility] [address] [id number] [address] [place] [id number] Nov, Back pain M54.9 [facility] [address] [id number] [address] [place] [id number] Nov, Anxiety F41.9 [facility] [address] [id number] [address] [place] [id number] Nov, [facility] [address] [id number] [address] [place] [id number] Oct, Back pain M54.9 [facility] [address] [id number] [address] [place] [id number] Oct, [facility] [address] [id number] [address] [place] [phone] Oct, [facility] [address] [id number] [address] [place] [id number] Oct, [facility] [address] [id number] [address] [place] [id number] September, Back pain M54.9 [facility] [address] [id number] [address] [place] [id number] September, [facility] [address] [id number] [address] [place] [id number] September, [facility] [address] [id number] [address] [place] [phone] September, [facility] [address] [id number] [address] [place] [id number] Aug, Back pain M54.9 [facility] [address] [id number] [address] [place] [id number] Aug, Anxiety F41.9 [facility] [address] [id number] [address] [place] [id number] Aug, [facility] [address] [facility] [id number] [address] [place] [id number] Aug, Pressure ulcer of other site , stage 3 L89.893 and COPD (chronic obstructive pulmonary disease) J44.9 [facility] [address] [facility] [id number] [address] [place] [id number] Aug, History of smoking Z87.891 [facility] [address] [id number] [address] [place] [id number] Jul, Type 2 diabetes mellitus wit h diabetic peripheral angiopathy without gangrene E11.51 [facility] [address] [facility] [id number] [address] [place] [id number] Jul, Back pain M54.9 [place] [address] [place] [id number] [address] [place] [id number] Jul, Anxiety F41.9 [place] [place] [address] [facility] [id number] [address] [place] [id number] Jul, [facility] [address] [facility] [id number] [address] [place] [id number] Jul, Back pain M54.9 [place] [address] [facility] [id number] [address] [place] [phone] Jul, Back pain M54.9 [place] [address] [facility] [id number] [address] [place] [id number] Jul, Lumbar radiculopathy, chroni c M54.16 ; Hypertension I10 and Type 2 diabetes mellitus with diabetic peripheral angiopathy without gangrene E11.51 [place] [address] [facility] [id number] [address] [place] [id number] Jul, Back pain M54.9 [place] [address] [facility] [id number] [address] [place] [id number] Jul, Back pain M54.9 and Anxiety F41.9 [place] [address] [id number] [address] [place] [id number] Jul, [facility] [address] [id number] [address] [place] [id number] May, Back pain M54.9 and Anxiety F41.9 [facility] [address] [facility] [id number] [address] [place] [id number] May, [facility] [address] [facility] [id number] [address] [place] [id number] Apr, Radiculopathy of lumbar rihannon on M54.16 ; Back pain M54.9 and Anxiety F41.9 [facility] [address] [id number] [address] [place] [id number] Apr, Diabetes E11.9 ; Muscle spas m M62.838 and Lumbar radiculopathy, chronic M54.16 [facility] [address] [id number] [address] [place] [id number] Apr, [facility] [address] [id number] [address] [place] [id number] Apr, [facility] [address] [facility] [id number] [address] [place] [id number] Mar, Back pain M54.9 and Anxiety F41.9 [facility] [address] [id number] [address] [place] [phone] Mar, [facility] [address] [facility] [id number] [address] [place] [phone] Mar, [facility] [address] [id number] [address] [place] [phone] Mar, [facility] [address] [facility] [id number] [address] [place] [id number] Mar, Encounter for immunization Z 23 [facility] [address] [facility] [id number] [address] [place] [id number] Feb, Back pain M54.9 and Anxiety F41.9 [facility] [address] [id number] [address] [place] [id number] 04 Feb, 2018 Back pain M54.9 and Anxiety F41.9 [facility] [address] [id number] [address] [place] [id number] Jan, Back pain M54.9 and Anxiety F41.9 [facility] [address] [id number] [address] [place] [id number] Jan, [facility] [address] [id number] [address] [place] [id number] Dec, [facility] [address] [id number] [address] [place] [id number] Dec, Back pain M54.9 and Anxiety F41.9 [facility] [address] [id number] [address] [place] [id number] Dec, Diabetes E11.9 ; Type 2 diab etes mellitus with diabetic peripheral angiopathy without gangrene E11.51 ; Lumbar radiculopathy, chronic M54.16 ; COPD (chronic obstructive pulmonary disease) J44.9 and Anxiety F41.9 [facility] [address] [id number] [address] [place] [id number] Dec, Back pain M54.9 and Anxiety F41.9 [facility] [address] [id number] [address] [place] [id number] Nov, Back pain M54.9 and Anxiety F41.9 [facility] [address] [id number] [address] [place] [id number] Oct, [facility] [address] [id number] [address] [place] [id number] Oct, Back pain M54.9 and Anxiety F41.9 [facility] [address] [facility] [id number] [address] [place] [id number] September, Anxiety F41.9 and Back pain M54.9 [facility] [address] [id number] [address] [place] [id number] September, Diabetes E11.9 ; Hypertensio n I10 ; COPD (chronic obstructive pulmonary disease) J44.9 and Lumbar radiculopathy, chronic M54.16 [place] [address] [facility] [id number] [address] [place] [id number] September, Anxiety F41.9 [place] [address] [facility] [id number] [address] [place] [phone] Aug, [place] [address] [facility] [id number] [address] [place] [id number] Aug, [place] [address] [facility] [id number] [address] [place] [id number] Aug, Anxiety F41.9 and Back pain M54.9 [place] [address] [facility] [id number] [address] [place] [id number] Aug, Medicare annual wellness vis it, initial Z00.00 ; COPD (chronic obstructive pulmonary disease) J44.9 ; PAD (peripheral artery disease) I73.9 ; Insulin long-term use Z79.4 ; Hypertension I10 ; Anxiety F41.9 ; Recurrent major depressive disorder, in full remission F33.42 ; Pressure ulcer of other site, stage 3 L89.893 ; Type 2 diabetes mellitus with diabetic peripheral angiopathy without gangrene E11.51 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 [place] [address] [facility] [id number] [address] [place] [id number] Jul, Back pain M54.9 [place] [address] [facility] [id number] [address] [place] [id number] Jul, [place] [address] [facility] [id number] [address] [place] [id number] Jul, Anxiety F41.9 and Back pain M54.9 [place] [address] [facility] [id number] [address] [place] [id number] Jul, Diabetes E11.9 [facility] [address] [id number] [address] [place] [id number] May, [facility] [address] [id number] [address] [place] [id number] May, Diabetes E11.9 ; Anxiety F41 .9 ; Back pain M54.9 and COPD (chronic obstructive pulmonary disease) J44.9 [facility] [address] [id number] [address] [place] [id number] May, Back pain M54.9 [facility] [address] [id number] [address] [place] [id number] May, [facility] [address] [id number] [address] [place] [id number] Apr, Back pain M54.9 [facility] [address] [id number] [address] [place] [id number] Mar, Back pain M54.9 [facility] [address] [id number] [address] [place] [id number] Mar, [facility] [address] [id number] [address] [place] [id number] 16 Mar, 2017 [facility] [address] [facility] [id number] [address] [place] [id number] 14 Mar, 2017 Radiculopathy of lumbar rhiannon on M54.16 [facility] [address] [id number] [address] [place] [id number] 13 Mar, 2017 [facility] [address] [facility] [id number] [address] [place] [id number] 07 Mar, 2017 Encounter for immunization Z 23 and Lumbar radiculopathy, chronic M54.16 [facility] [address] [id number] [address] [place] [id number] Mar, Back pain M54.9 and Anxiety F41.9 [facility] [address] [id number] [address] [place] [id number] Feb, Acute bilateral low back boy n with left-sided sciatica M54.42 and Acute bilateral low back pain with right-sided sciatica M54.41 [facility] [address] [id number] [address] [place] [id number] Feb, [facility] [address] [id number] [address] [place] [id number] Feb, Back pain M54.9 [facility] [address] [id number] [address] [place] [id number] 05 Jan, 2017 Back pain M54.9 and Anxiety F41.9 [facility] [address] [id number] [address] [place] [id number] 05 Jan, 2017 Diabetes E11.9 [facility] [address] [id number] [address] [place] [id number] Dec, Diabetes E11.9 ; Back pain M 54.9 ; Anxiety F41.9 and Insulin long- term use Z79.4 [facility] [address] [id number] [address] [place] [id number] Dec, Anxiety F41.9 [facility] [address] [id number] [address] [place] [id number] Dec, Back pain M54.9 [facility] [address] [id number] [address] [place] [id number] Nov, Back pain M54.9 [facility] [address] [id number] [address] [place] [id number] Oct, Back pain M54.9 and Anxiety F41.9 [facility] [address] [id number] [address] [place] [id number] September, Back pain M54.9 [facility] [address] [id number] [address] [place] [id number] September, Back pain M54.9 and Anxiety F41.9 [facility] [address] [id number] [address] [place] [id number] Aug, Diabetes E11.9 ; Anxiety F41 .9 ; Back pain M54.9 and PAD (peripheral artery disease) I73.9 [facility] [address] [id number] [address] [place] [id number] 19 Aug, 2016 Anxiety F41.9 [facility] [address] [id number] [address] [place] [id number] Aug, Back pain M54.9 [facility] [address] [id number] [address] [place] [id number] Jul, Back pain M54.9 [facility] [address] [id number] [address] [place] [id number] Jul, Back pain M54.9 [facility] [address] [id number] [address] [place] [id number] Jul, Back pain M54.9 [facility] [address] [id number] [address] [place] [id number] 16 Jul, 2016 Dorsalgia M54.9 [facility] [address] [id number] [address] [place] [id number] Jul, [facility] [address] [facility] [id number] [address] [place] [id number] May, Back pain M54.9 [facility] [address] [facility] [id number] [address] [place] [id number] May, Diabetes E11.9 ; Anxiety F41 .9 ; Port catheter in place Z95.828 ; Encounter for immunization Z23 and Insulin long-term use Z79.4 [facility] [address] [id number] [address] [place] [id number] Apr, Back pain M54.9 [facility] [address] [id number] [address] [place] [id number] Apr, Back pain M54.9 [facility] [address] [id number] [address] [place] [id number] Apr, [facility] [address] [id number] [address] [place] [id number] Apr, Back pain M54.9 [facility] [address] [id number] [address] [place] [id number] Mar, COPD (chronic obstructive pu lmonary disease) J44.9 [facility] [address] [id number] [address] [place] [id number] Feb, [facility] [address] [id number] [address] [place] [id number] 30 Jan, 2016 [facility] [address] [id number] [address] [place] [id number] Jan, [facility] [address] [id number] [address] [place] [id number] Jan, [facility] [address] [id number] [address] [place] [id number] Jan, [facility] [address] [id number] [address] [place] [id number] Dec, Diabetes E11.9 ; Hypoxia R09 .02 and Back pain M54.9 [facility] [address] [id number] [address] [place] [id number] Dec, [facility] [address] [id number] [address] [place] [id number] Nov, [facility] [address] [id number] [address] [place] [id number] Oct, Anxiety F41.9 [facility] [address] [id number] [address] [place] [id number] Oct, Back pain M54.9 [facility] [address] [id number] [address] [place] [id number] September, Back pain M54.9 [facility] [address] [facility] [id number] [address] [place] [id number] September, Diabetes E11.9 [facility] [address] [facility] [id number] [address] [place] [id number] September, [facility] [address] [facility] [id number] [address] [place] [id number] September, Diabetes E11.9 ; Insulin sarai g-term use Z79.4 and Back pain M54.9 [facility] [address] [facility] [id number] [address] [place] [id number] Aug, Back pain M54.9 [facility] [address] [facility] [id number] [address] [place] [id number] Aug, Back pain M54.9 ; Anxiety F4 1.9 and Arthropathy, unspecified M12.9 [facility] [address] [facility] [id number] [address] [place] [id number] Jul, Back pain M54.9 [facility] [address] [facility] [id number] [address] [place] [id number] Jul, Anxiety F41.9 [facility] [address] [facility] [id number] [address] [place] [id number] Jul, Back pain M54.9 [facility] [address] [facility] [id number] [address] [place] [phone] Jul, [facility] [address] [facility] [id number] [address] [place] [id number] Jul, [facility] [address] [facility] [id number] [address] [place] [id number] May, Back pain M54.9 ; Diabetes E 11.9 ; Insulin long-term use Z79.4 ; COPD (chronic obstructive pulmonary disease) J44.9 and Hypertension I10 [facility] [address] [facility] [id number] [address] [place] [id number] May, Chronic pain G89.29 [facility] [address] [id number] [address] [place] [id number] Apr, [facility] [address] [id number] [address] [place] [id number] Apr, [facility] [address] [id number] [address] [place] [id number] Mar, [facility] [address] [id number] [address] [place] [id number] Mar, Encounter for immunization Z 23 and Diabetes E11.9 [facility] [address] [id number] [address] [place] [id number] Feb, [facility] [address] [id number] [address] [place] [id number] Feb, [facility] [address] [id number] [address] [place] [id number] Jan, [facility] [address] [id number] [address] [place] [id number] Jan, [facility] [address] [id number] [address] [place] [phone] Dec, [facility] [address] [id number] [address] [place] [phone] Dec, [facility] [address] [id number] [address] [place] [phone] Dec, Unspecified arthropathy, sit e unspecified 716.90 and Diabetes mellitus type 2, uncontrolled 250.02 [facility] [address] [id number] [address] [place] [id number] Dec, [facility] [address] [id number] [address] [place] [id number] Nov, [facility] [address] [id number] [address] [place] [id number] Oct, [facility] [address] [id number] [address] [place] [phone] September, [facility] [address] [id number] [address] [place] [address], [place] [id number] September, [facility] [address] [id number] [address] [place] [address], [place] [id number] September, [facility] [address] [id number] [address] [place] [address], [place] [id number] September, [facility] [address] [id number] [address] [place] [address], [place] [id number] 14 Aug, 2014 [facility] [address] [id number] [address] [place] [address], [place] [id number] 13 Aug, 2014 [facility] [address] [id number] [address] [place] [address], [place] [id number] 18 Jul, 2014 [facility] [address] [id number] [address] [place] [address], [place] [id number] 18 Jul, 2014 [facility] [address] [id number] [address] [place] [address], [place] [id number] 16 Jul, 2014 [facility] [address] [id number] [address] [place] [address], [place] [id number] 16 Jul, 2014 [facility] [address] [id number] [address] [place] [address], [place] [address] 16 Jul, 2014 [facility] [address] [id number] [address] [place] [address], [place] [id number] 16 Jul, 2014 [facility] [address] [id number] [address] [place] [address], [place] [address] 16 Jul, 2014 [facility] [address] [id number] [address] [place] [address], [place] [id number] 16 Jul, 2014 [facility] [address] [id number] [address] [place] [address], [place] [address] 16 Jul, 2014 [facility] [address] [id number] [address] [place] [address], [place] [id number] 13 Jul, 2014 [facility] [address] [id number] [address] [place] [address], [place] [address] 13 Jul, 2014 [facility] [address] [id number] [address] [place] [address], [place] [id number] 09 Jul, 2014 [facility] [address] [id number] [address] [place] [address], [place] [id number] 09 Jul, 2014 [facility] [address] [id number] [address] [place] [address], [place] [id number] 17 Jul, 2014 [facility] [address] [id number] [address] [place] [address], [place] [id number] 17 Jul, 2014 [facility] [address] [id number] [address] [place] [address], [place] [id number] 16 Jul, 2014 [facility] [address] [id number] [address] [place] [address], [place] [address] 16 Jul, 2014 [facility] [address] [id number] [address] [place] [address], [place] [id number] 16 Jul, 2014 [facility] [address] [id number] [address] [place] [address], [place] [address] 16 Jul, 2014 [facility] [address] [id number] [address] [place] [address], [place] [address] 16 Jul, 2014 [facility] [address] [id number] [address] [place] [address], [place] [address] 16 Jul, 2014 [facility] [address] [id number] [address] [place] [address], [place] [address] 16 Jul, 2014 [facility] [address] [id number] [address] [place] [address], [place] [address] 16 Jul, 2014 [facility] [address] [id number] [address] [place] [address], [place] [address] 16 Jul, 2014 [facility] [address] [id number] [address] [place] [address], [place] [address] 16 Jul, 2014 [facility] [address] [id number] [address] [place] [address] [place] [address] 16 Jul, 2014 [facility] [address] [id number] [address] [place] [address], [place] [address] Jul, [facility] [address] [id number] [address] [place] [address], [place] [address] Jul, [facility] [address] [id number] [address] [place] [address], [place] [address] Jul, [facility] [address] [id number] [address] [place] [address], [place] [address] May, [facility] [address] [id number] [address] [place] [address], [place] [address] May, [facility] [address] [id number] [address] [place] [address], [place] [address] May, [facility] [address] [id number] [address] [place] [address], [place] [address] May, [facility] [address] [id number] [address] [place] [address], [place] [address] May, [facility] [address] [id number] [address] [place] [address], [place] [address] May, [facility] [address] [id number] [address] [place] [address], [place] [address] May, [facility] [address] [id number] [address] [place] [address], [place] [address] May, [facility] [address] [id number] [address] [place] [address], [place] [address] May, [facility] [address] [id number] [address] [place] [address], [place] [address] May, [facility] [address] [id number] [address] [place] [address], [place] [address] Apr, [facility] [address] [id number] [address] [place] [address], [place] [address] Apr, [facility] [address] [id number] [address] [place] [address], [place] [address] Apr, [facility] [address] [id number] [address] [place] [address], [place] [address] Apr, [facility] [address] [id number] [address] [place] [address], [place] [address] Apr, [facility] [address] [id number] [address] [place] [address], [place] [address] Apr, [facility] [address] [id number] [address] [place] [address], [place] [address] Mar, [facility] [address] [id number] [address] [place] [address], [place] [address] Mar, [facility] [address] [id number] [address] [place] [address], [place] [address] Mar, [facility] [address] [id number] [address] [place] [address], [place] [address] Mar, [facility] [address] [id number] [address] [place] [address], [place] [address] Mar, [facility] [address] [id number] [address] [place] [address], [place] [address] Mar, [facility] [address] [id number] [address] [place] [address], [place] [address] Mar, [facility] [address] [id number] [address] [place] [address], [place] [address] Mar, [facility] [address] [id number] [address] [place] [address], [place] [address] Mar, [facility] [address] [id number] [address] [place] [address], [place] [address] Mar, [facility] [address] [id number] [address] [place] [address], [place] [address] Mar, [facility] [address] [id number] [address] [place] [address], [place] [address] Feb, [facility] [address] [id number] [address] [place] [address], [place] [address] 30 Feb, 2014 [facility] [address] [id number] [address] [place] [address], [place] [address] Feb, [facility] [address] [id number] [address] [place] [address], [place] [address] Feb, [facility] [address] [id number] [address] [place] [address], [place] [address] Feb, [facility] [address] [id number] [address] [place] [address], [place] [address] Feb, [facility] [address] [id number] [address] [place] [address], [place] [address] Feb, [facility] [address] [id number] [address] [place] [address], [place] [address] Feb, [facility] [address] [id number] [address] [place] [address], [place] [address] Feb, [facility] [address] [id number] [address] [place] [address], [place] [address] Feb, [facility] [address] [id number] [address] [place] [address], [place] [address] 22 Jan, 2013 [facility] [address] [id number] [address] [place] [address], [place] [address] 22 Jan, 2013 [facility] [address] [id number] [address] [place] [address], [place] [address] 16 Jan, 2013 [facility] [address] [id number] [address] [place] [address], [place] [address] 16 Sep, 2013 [facility] [address] [id number] [address] [place] [address], [place] [address] 12 Jan, 2013 [facility] [address] [id number] [address] [place] [address], [place] [address] 04 Jan, 2013 [facility] [address] [id number] [address] [place] [address], [place] [address] Jan, [facility] [address] [id number] [address] [place] [address], [place] [address] Dec, [facility] [address] [id number] [address] [place] [address], [place] [address] Dec, [facility] [address] [id number] [address] [place] [address], [place] [address] Dec, [facility] [address] [id number] [address] [place] [address], [place] [address] Dec, [facility] [address] [id number] [address] [place] [address], [place] [address] Dec, [facility] [address] [id number] [address] [place] [address], [place] [address] Dec, [facility] [address] [id number] [address] [place] [address], [place] [address] Dec, [facility] [address] [id number] [address] [place] [address], [place] [address] Dec, [facility] [address] [id number] [address] [place] [address], [place] [address] Oct, [facility] [address] [id number] [address] [place] [address], [place] [address] Oct, [facility] [address] [id number] [address] [place] [address], [place] [address] September, [facility] [address] [id number] [address] [place] [address], [place] [address] September, [facility] [address] [id number] [address] [place] [address], [place] [address] September, [facility] [address] [id number] [address] [place] [address], [place] [address] September, [facility] [address] [id number] [address] [place] [address], [place] [address] September, [facility] [address] [id number] [facility] [place] [address] September, [facility] [address] [id number] [address] [place] [address], [place] [address] September, [facility] [address] [id number] [address] [place] [address], [place] [address] Aug, [facility] [address] [id number] [address] [place] [address], [place] [address] Aug, [facility] [address] [id number] [address] [place] [address], [place] [address] Jul, [facility] [address] [id number] [address] [place] [address], [place] [address] Jul, [facility] [address] [id number] [address] [place] [address], [place] [address] Jul, [facility] [address] [id number] [address] [place] [address], [place] [address] Jul, [facility] [address] [id number] [address] [place] [address], [place] [address] Jul, [facility] [address] [id number] [address] [place] [address], [place] [address] Jul, [facility] [address] [id number] [address] [place] [address], [place] [address] Jul, [facility] [address] [id number] [address] [place] [address], [place] [address] Jul, [facility] [address] [id number] [address] [place] [address], [place] [address] May, [facility] [address] [id number] [address] [place] [address], [place] [address] May, [facility] [address] [id number] [address] [place] [address], [place] [address] May, [facility] [address] [id number] [address] [place] [address], [place] [address] 14 May, 2013 [facility] [address] [id number] [address] [place] [address], [place] [address] 18 Apr, 2013 [facility] [address] [id number] [address] [place] [address], [place] [address] 20 Mar, 2013 [facility] [address] [id number] [address] [place] [address], [place] [address] 20 Mar, 2013 [facility] [address] [id number] [address] [place] [address], [place] [address] Mar, [facility] [address] [id number] [address] [place] [address], [place] [address] Mar, [facility] [address] [id number] [address] [place] [address], [place] [address] 18 Mar, 2013 [facility] [address] [id number] [address] [place] [address], [place] [address] 18 Mar, 2013 [facility] [address] [id number] [address] [place] [address], [place] [address] 18 Mar, 2013 [facility] [address] [id number] [address] [place] [address], [place] [address] 18 Mar, 2013 [facility] [address] [id number] [address] [place] [address], [place] [address] 11 Mar, 2013 [facility] [address] [id number] [address] [place] [address], [place] [address] 11 Mar, 2013 [facility] [address] [id number] [address] [place] [address], [place] [address] 04 Mar, 2013 [facility] [address] [id number] [address] [place] [address], [place] [address] 04 Mar, 2013 [facility] [address] [id number] [address] [place] [address], [place] [address] 15 Feb, 2013 [facility] [address] [id number] [address] [place] [address] Feb, [facility] [address] [id number] [address] [place] [address], [place] [address] Feb, [facility] [address] [id number] [address] [place] [address], [place] [address] Feb, [facility] [address] [id number] [address] [place] [address], [place] [address] Feb, [facility] [address] [id number] [address] [place] [address], [place] [address] Jan, [facility] [address] [id number] [address] [place] [address], [place] [address] Dec, [facility] [address] [id number] [address] [place] [address], [place] [address] Dec, [facility] [address] [id number] [address] [place] [address], [place] [address] Dec, [facility] [address] [id number] [address] [place] [address], [place] [address] Nov, [facility] [address] [id number] [address] [place] [address], [place] [address] Nov, [facility] [address] [id number] [address] [place] [address], [place] [address] Nov, [facility] [address] [id number] [address] [place] [address], [place] [address] Oct, [facility] [address] [id number] [address] [place] [address], [place] [address] Oct, [facility] [address] [id number] [address] [place] [address], [place] [address] Oct, [facility] [address] [id number] [address] [place] [address], [place] [address] September, [facility] [address] [id number] [address] [place] [address], [place] [address] September, [facility] [address] [id number] [address] [place] [address], [place] [address] September, [facility] [address] [id number] [address] [place] [address], [place] [address] September, [facility] [address] [id number] [address] [place] [address], [place] [address] September, [facility] [address] [id number] [address] [place] [address], [place] [address] Aug, [facility] [address] [id number] [address] [place] [address], [place] [address] Aug, [facility] [address] [id number] [address] [place] [address], [place] [address] Aug, [facility] [address] [id number] [address] [place] [address], [place] [address] Jul, [facility] [address] [id number] [address] [place] [address], [place] [address] Jul, [facility] [address] [id number] [address] [place] [address], [place] [address] Jul, [facility] [address] [id number] [address] [place] [address], [place] [address] Jul, [facility] [address] [id number] [address] [place] [address], [place] [address] Jul, [facility] [address] [id number] [address] [place] [address], [place] [address] Jul, [facility] [address] [id number] [address] [place] [address], [place] [address] Jul, [facility] [address] [id number] [address] [place] [address], [place] [address] May, [facility] [address] [id number] [address] [place] [address], [place] [address] May, [facility] [address] [id number] [address] [place] [address], [place] [address] May, [facility] [address] [id number] [address] [place] [address], [place] [address] Apr, [facility] [address] [id number] [address] [place] [address], [place] [address] Apr, [facility] [address] [id number] [address] [place] [address], [place] [address] Apr, [facility] [address] [id number] [address] [place] [address], [place] [address] Apr, [facility] [address] [id number] [address] [place] [address], [place] [address] Apr, [facility] [address] [id number] [address] [place] [address], [place] [address] Mar, [facility] [address] [id number] [address] [place] [address], [place] [address] Mar, [facility] [address] [id number] [address] [place] [address], [place] [address] Mar, [facility] [address] [id number] [address] [place] [address], [place] [address] Mar, [facility] [address] [id number] [address] [place] [address], [place] [address] Feb, [facility] [address] [id number] [address] [place] [address], [place] [address] Feb, [facility] [address] [id number] [address] [place] [address], [place] [address] Feb, [facility] [address] [id number] [address] [place] [address], [place] [address] Feb, [facility] [address] [id number] [address] [place] [address], [place] [address] Feb, [facility] [address] [id number] [address] [place] [address], [place] [address] Jan, [facility] [address] [id number] [address] [place] [address], [place] [address] Dec, [facility] [address] [id number] [address] [place] [address], [place] [address] Dec, [facility] [address] [id number] [address] [place] [address], [place] [address] Dec, [facility] [address] [id number] [address] [place] [address], [place] [address] Nov, [facility] [address] [id number] [address] [place] [address], [place] [address] Nov, [facility] [address] [id number] [address] [place] [address], [place] [address] Nov, [facility] [address] [id number] [address] [place] [address], [place] [address] Oct, [facility] [address] [id number] [address] [place] [address], [place] [address] Oct, [facility] [address] [id number] [address] [place] [address], [place] [address] Oct, [facility] [address] [id number] [address] [place] [address], [place] [address] Oct, [facility] [address] [id number] [address] [place] [address], [place] [address] September, [facility] [address] [id number] [address] [place] [address], [place] [address] September, [facility] [address] [id number] [address] [place] [address], [place] [address] 30 Aug, 2011 [facility] [address] [id number] [address] [place] [address], [place] [address] 23 Aug, 2011 [facility] [address] [id number] [address] [place] [address], [place] [address] Aug, [facility] [address] [id number] [address] [place] [address], [place] [address] Aug, [facility] [address] [id number] [address] [place] [address], [place] [address] Aug, [facility] [address] [id number] [address] [place] [address], [place] [address] Aug, [facility] [address] [id number] [address] [place] [address], [place] [address] Aug, [facility] [address] [id number] [address] [place] [address], [place] [address] Jul, [facility] [address] [id number] [address] [place] [address], [place] [address] Jul, [facility] [address] [id number] [address] [place] [address], [place] [address] Jul, [facility] [address] [id number] [address] [place] [address], [place] [address] May, [facility] [address] [id number] [address] [place] [address], [place] [address] May, [facility] [address] [id number] [address] [place] [address], [place] [address] May, [facility] [address] [id number] [address] [place] [address], [place] [address] Apr, [facility] [address] [id number] [address] [place] [address], [place] [address] Apr, [facility] [address] [id number] [address] [place] [address], [place] [address] Mar, [facility] [address] [id number] [address] [place] [address], [place] [address] Mar, [facility] [address] [id number] [address] [place] [address], [place] [address] Mar, [facility] [address] [id number] [address] [place] [address], [place] [address] Mar, [facility] [address] [id number] [address] [place] [address], [place] [address] Mar, [facility] [address] [facility] [id number] [address] [place] [id number] Mar, [facility] [address] [facility] [id number] [address] [place] [id number] Feb, [facility] [address] [facility] [id number] [address] [place] [id number] Feb, [facility] [address] [facility] [id number] [address] [place] [id number] Feb, IMMUNIZATIONS No Known Immunizations SOCIAL HISTORY Never Assessed REASON FOR VISIT PLAN OF CARE VITAL SIGNS MEDICATIONS Unknown Medications RESULTS No Results PROCEDURES Procedure Date Ordered Result Body Site COMPLETE CBC W/AUTO DIFF WBC Apr 27, 2014 ASSAY THYROID STIM HORMONE Apr 27, 2014 GLYCATED HEMOGLOBIN TEST Apr 27, 2014 LIPID PANEL Apr 27, 2014 COMPREHEN METABOLIC PANEL Apr 27, 2014 VENIPUNCT, ROUTINE* Apr 27, 2014 INSTRUCTIONS MEDICATIONS ADMINISTERED No Known Medications [...]
--- OUTSIDE RECORDS SUMMARY | 2020-01-03 07:45 | XMS REPORT ---
Author Author Tra SILVERIO Organization [facility] Address [address] [place] [address] Care Team Providers Care Social Service Assistant Name Role Phone FERNY SILVERIO Unavailable PROBLEMS Type Condition ICD9-CM Code XGN14-PE Code Onset Dates Condition S tatus SNOMED Code Problem Insulin long-term use Z79.4 Active 401242476 Problem Hypertension I10 Active 1875033 3 Problem Diabetes E11.9 Active 02741359 Problem Hypoxia R09.02 Active 953526880 Problem Anxiety F41.9 Active 64564663 Problem Port catheter in place Z95.828 Active 140449397 Problem Pressure ulcer of other site, stage 3 L89.893 Active 779734942 Problem COPD (chronic obstructive pulmonary disease) J44.9 Active 85622437 Problem Type 2 diabetes mellitus wit h diabetic peripheral angiopathy without gangrene E11.51 Active 082337673 Problem Back pain M54.9 Active 139424052 Problem PAD (peripheral artery disease) I73.9 Active 470932306 Problem Lumbar radiculopathy, chronic M54.16 Active 136300730 Problem Recurrent major depressive disorder, in full remission F33.42 Active 064105654 Problem snf current use of insulin Z79.4 Active [id number] ALLERGIES No Information ENCOUNTERS Encounter Location Date Diagnosis [facility] [address] [facility] [id number] [address] [place] [phone] Dec, [facility] [address] [facility] [id number] [address] [place] [phone] Dec, [facility] [address] [facility] [id number] [address] [place] [phone] Nov, Anxiety F41.9 [facility] [address] [facility] [id number] [address] [place] [phone] Nov, [facility] [address] [id number] [address] [place] [phone] 30 Nov, 2018 Back pain M54.9 [facility] [address] [id number] [address] [place] [address], [place] [address] Nov, [facility] [address] [id number] [address] [place] [phone] Nov, Back pain M54.9 [facility] [address] [id number] [address] [place] [address], [place] [address] Nov, Anxiety F41.9 [facility] [address] [id number] [address] [place] [address], [place] [phone] Nov, [facility] [address] [id number] [address] [place] [phone] Oct, Back pain M54.9 [facility] [address] [id number] [address] [place] [phone] Oct, [facility] [address] [id number] [address] [place] [phone] Oct, [facility] [address] [id number] [address] [place] [id number] Oct, [facility] [address] [id number] [address] [place] [phone] September, Back pain M54.9 [facility] [address] [id number] [address] [place] [phone] September, [facility] [address] [id number] [address] [place] [phone] September, [facility] [address] [id number] [address] [place] [phone] September, [facility] [address] [id number] [address] [place] [phone] Aug, Back pain M54.9 [facility] [address] [id number] [address] [place] [phone] Aug, Anxiety F41.9 [facility] [address] [id number] [address] [place] [phone] Aug, [facility] [address] [id number] [address] [place] [phone] Aug, Pressure ulcer of other site , stage 3 L89.893 and COPD (chronic obstructive pulmonary disease) J44.9 [facility] [address] [id number] [address] [place] [phone] Aug, History of smoking Z87.891 [facility] [address] [id number] [address] [place] [id number] Jul, Type 2 diabetes mellitus wit h diabetic peripheral angiopathy without gangrene E11.51 [facility] [address] [id number] [address] [place] [phone] Jul, Back pain M54.9 [facility] [address] [id number] [address] [place] [phone] Jul, Anxiety F41.9 [facility] [address] [id number] [address] [place] [phone] Jul, [facility] [address] [id number] [address] [place] [phone] Jul, Back pain M54.9 [facility] [address] [id number] [address] [place] [phone] Jul, Back pain M54.9 [facility] [address] [id number] [address] [place] [phone] Jul, Lumbar radiculopathy, chroni c M54.16 ; Hypertension I10 and Type 2 diabetes mellitus with diabetic peripheral angiopathy without gangrene E11.51 [facility] [address] [id number] [address] [place] [phone] Jul, Back pain M54.9 [facility] [address] [id number] [address] [place] [id number] Jul, Back pain M54.9 and Anxiety F41.9 [facility] [address] [id number] [address] [place] [phone] Jul, [facility] [address] [id number] [address] [place] [phone] May, Back pain M54.9 and Anxiety F41.9 [facility] [address] [facility] [id number] [address] [place] [phone] May, [facility] [address] [facility] [id number] [address] [place] [id number] Apr, Radiculopathy of lumbar rhiannon on M54.16 ; Back pain M54.9 and Anxiety F41.9 [facility] [address] [facility] [id number] [address] [place] [id number] Apr, Diabetes E11.9 ; Muscle spas m M62.838 and Lumbar radiculopathy, chronic M54.16 [facility] [address] [facility] [id number] [address] [place] [phone] Apr, [facility] [address] [facility] [id number] [address] [place] [id number] Apr, [facility] [address] [facility] [id number] [address] [place] [phone] Mar, Back pain M54.9 and Anxiety F41.9 [facility] [address] [facility] [id number] [address] [place] [phone] Mar, [facility] [address] [id number] [address] [place] [phone] Mar, [facility] [address] [facility] [id number] [address] [place] [phone] Mar, [facility] [address] [facility] [id number] [address] [place] [phone] Mar, Encounter for immunization Z 23 [facility] [address] [id number] [address] [place] [phone] Feb, Back pain M54.9 and Anxiety F41.9 [facility] [address] [id number] [address] [place] [phone] 04 Feb, 2018 Back pain M54.9 and Anxiety F41.9 [facility] [address] [id number] [address] [place] [phone] Jan, Back pain M54.9 and Anxiety F41.9 [facility] [address] [id number] [address] [place] [phone] Jan, [facility] [address] [id number] [address] [place] [phone] Dec, [facility] [address] [id number] [address] [place] [phone] Dec, Back pain M54.9 and Anxiety F41.9 [facility] [address] [id number] [address] [place] [phone] 13 Dec, 2017 Diabetes E11.9 ; Type 2 diab etes mellitus with diabetic peripheral angiopathy without gangrene E11.51 ; Lumbar radiculopathy, chronic M54.16 ; COPD (chronic obstructive pulmonary disease) J44.9 and Anxiety F41.9 [facility] [address] [id number] [address] [place] [phone] Dec, Back pain M54.9 and Anxiety F41.9 [facility] [address] [id number] [address] [place] [phone] Nov, Back pain M54.9 and Anxiety F41.9 [facility] [address] [id number] [address] [place] [id number] Oct, [facility] [address] [id number] [address] [place] [phone] 2017 Back pain M54.9 and Anxiety F41.9 [facility] [address] [id number] [address] [place] [phone] September, Anxiety F41.9 and Back pain M54.9 [facility] [address] [id number] [address] [place] [id number] September, Diabetes E11.9 ; Hypertensio n I10 ; COPD (chronic obstructive pulmonary disease) J44.9 and Lumbar radiculopathy, chronic M54.16 [facility] [address] [id number] [address] [place] [phone] September, Anxiety F41.9 [facility] [address] [id number] [address] [place] [phone] Aug, [facility] [address] [id number] [address] [place] [phone] Aug, [place] [address] [id number] [address] [place] [phone] Aug, Anxiety F41.9 and Back pain M54.9 [facility] [address] [id number] [address] [place] [phone] Aug, Medicare annual wellness vis it, initial Z00.00 ; COPD (chronic obstructive pulmonary disease) J44.9 ; PAD (peripheral artery disease) I73.9 ; Insulin long-term use Z79.4 ; Hypertension I10 ; Anxiety F41.9 ; Recurrent major depressive disorder, in full remission F33.42 ; Pressure ulcer of other site, stage 3 L89.893 ; Type 2 diabetes mellitus with diabetic peripheral angiopathy without gangrene E11.51 and snf current use of insulin Z79.4 [facility] [address] [id number] [address] [place] [phone] Jul, Back pain M54.9 [facility] [address] [id number] [address] [place] [phone] Jul, [facility] [address] [id number] [address] [place] [phone] Jul, Anxiety F41.9 and Back pain M54.9 [facility] [address] [id number] [address] [place] [phone] Jul, Diabetes E11.9 [facility] [address] [id number] [address] [place] [phone] May, [facility] [address] [id number] [address] [place] [phone] May, Diabetes E11.9 ; Anxiety F41 .9 ; Back pain M54.9 and COPD (chronic obstructive pulmonary disease) J44.9 [facility] [address] [id number] [address] [place] [phone] May, Back pain M54.9 [facility] [address] [id number] [address] [place] [phone] May, [facility] [address] [id number] [address] [place] [phone] Apr, Back pain M54.9 [facility] [address] [id number] [address] [place] [phone] Mar, Back pain M54.9 [facility] [address] [id number] [address] [place] [id number] Mar, [facility] [address] [id number] [address] [place] [phone] Mar, [facility] [address] [id number] [address] [place] [phone] 14 Mar, 2017 Radiculopathy of lumbar rhiannon on M54.16 [facility] [address] [id number] [address] [place] [id number] 13 Mar, 2017 [facility] [address] [id number] [address] [place] [phone] 07 Mar, 2017 Encounter for immunization Z 23 and Lumbar radiculopathy, chronic M54.16 [facility] [address] [id number] [address] [place] [phone] Mar, Back pain M54.9 and Anxiety F41.9 [facility] [address] [id number] [address] [place] [phone] Feb, Acute bilateral low back boy n with left-sided sciatica M54.42 and Acute bilateral low back pain with right-sided sciatica M54.41 [facility] [address] [id number] [address] [place] [phone] Feb, [facility] [address] [id number] [address] [place] [phone] Feb, Back pain M54.9 [facility] [address] [id number] [address] [place] [id number] 05 Jan, 2017 Back pain M54.9 and Anxiety F41.9 [facility] [address] [id number] [address] [place] [phone] Jan, Diabetes E11.9 [facility] [address] [id number] [address] [place] [phone] Dec, Diabetes E11.9 ; Back pain M 54.9 ; Anxiety F41.9 and Insulin long- term use Z79.4 [facility] [address] [id number] [address] [place] [id number] Dec, Anxiety F41.9 [facility] [address] [id number] [address] [place] [id number] Dec, Back pain M54.9 [facility] [address] [id number] [address] [place] [phone] Nov, Back pain M54.9 [facility] [address] [id number] [address] [place] [id number] Oct, Back pain M54.9 and Anxiety F41.9 [facility] [address] [id number] [address] [place] [id number] September, Back pain M54.9 [facility] [address] [id number] [address] [place] [phone] September, Back pain M54.9 and Anxiety F41.9 [facility] [address] [id number] [address] [place] [id number] Aug, Diabetes E11.9 ; Anxiety F41 .9 ; Back pain M54.9 and PAD (peripheral artery disease) I73.9 [facility] [address] [id number] [address] [place] [id number] Aug, Anxiety F41.9 [facility] [address] [id number] [address] [place] [id number] Aug, Back pain M54.9 [facility] [address] [id number] [address] [place] [phone] Jul, Back pain M54.9 [facility] [address] [id number] [address] [place] [phone] Jul, Back pain M54.9 [facility] [address] [id number] [address] [place] [phone] Jul, Back pain M54.9 [facility] [address] [id number] [address] [place] [id number] Jul, Dorsalgia M54.9 [facility] [address] [id number] [address] [place] [phone] Jul, [facility] [address] [id number] [address] [place] [phone] May, Back pain M54.9 [facility] [address] [id number] [address] [place] [phone] May, Diabetes E11.9 ; Anxiety F41 .9 ; Port catheter in place Z95.828 ; Encounter for immunization Z23 and Insulin long-term use Z79.4 [facility] [address] [id number] [address] [place] [id number] Apr, Back pain M54.9 [facility] [address] [id number] [address] [place] [phone] Apr, Back pain M54.9 [facility] [address] [id number] [address] [place] [phone] Apr, [facility] [address] [id number] [address] [place] [phone] Apr, Back pain M54.9 [facility] [address] [id number] [address] [place] [phone] Mar, COPD (chronic obstructive pu lmonary disease) J44.9 [facility] [address] [id number] [address] [place] [phone] Feb, [facility] [address] [id number] [address] [place] [id number] 30 Jan, 2016 [facility] [address] [id number] [address] [place] [phone] Jan, [facility] [address] [id number] [address] [place] [phone] Jan, [facility] [address] [id number] [address] [place] [phone] Jan, [facility] [address] [id number] [address] [place] [phone] Dec, Diabetes E11.9 ; Hypoxia R09 .02 and Back pain M54.9 [facility] [address] [id number] [address] [place] [phone] Dec, [facility] [address] [id number] [address] [place] [phone] Nov, [facility] [address] [id number] [address] [place] [phone] Oct, Anxiety F41.9 [facility] [address] [id number] [address] [place] [phone] Oct, Back pain M54.9 [facility] [address] [facility] [id number] [address] [place] [phone] September, Back pain M54.9 [facility] [address] [facility] [id number] [address] [place] [phone] September, Diabetes E11.9 [facility] [address] [facility] [id number] [address] [place] [phone] September, [facility] [address] [facility] [id number] [address] [place] [phone] September, Diabetes E11.9 ; Insulin sarai g-term use Z79.4 and Back pain M54.9 [facility] [address] [facility] [id number] [address] [place] [phone] Aug, Back pain M54.9 [facility] [address] [facility] [id number] [address] [place] [phone] Aug, Back pain M54.9 ; Anxiety F4 1.9 and Arthropathy, unspecified M12.9 [facility] [address] [facility] [id number] [address] [place] [phone] Jul, Back pain M54.9 [facility] [address] [facility] [id number] [address] [place] [phone] Jul, Anxiety F41.9 [facility] [address] [facility] [id number] [address] [place] [id number] Jul, Back pain M54.9 [facility] [address] [facility] [id number] [address] [place] [phone] Jul, [facility] [address] [facility] [id number] [address] [place] [id number] Jul, [facility] [address] [facility] [id number] [address] [place] [id number] May, Back pain M54.9 ; Diabetes E 11.9 ; Insulin long-term use Z79.4 ; COPD (chronic obstructive pulmonary disease) J44.9 and Hypertension I10 [facility] [address] [id number] [address] [place] [phone] May, Chronic pain G89.29 [facility] [address] [id number] [address] [place] [phone] Apr, [facility] [address] [facility] [id number] [address] [place] [phone] Apr, [facility] [address] [id number] [address] [place] [id number] Mar, [facility] [address] [id number] [address] [place] [id number] Mar, Encounter for immunization Z 23 and Diabetes E11.9 [facility] [address] [id number] [address] [place] [id number] Feb, [facility] [address] [facility] [id number] [address] [place] [phone] Feb, [facility] [address] [facility] [id number] [address] [place] [phone] Jan, [facility] [address] [id number] [address] [place] [phone] Jan, [facility] [address] [facility] [id number] [address] [place] [phone] Dec, [facility] [address] [facility] [id number] [address] [place] [phone] Dec, [facility] [address] [facility] [id number] [address] [place] [id number] Dec, Unspecified arthropathy, sit e unspecified 716.90 and Diabetes mellitus type 2, uncontrolled 250.02 [facility] [address] [id number] [address] [place] [id number] Dec, [facility] [address] [facility] [id number] [address] [place] [phone] Nov, [facility] [address] [facility] [id number] [address] [place] [phone] 08 Oct, 2014 [facility] [address] [id number] [address] [place] [address], [place] [phone] September, [facility] [address] [id number] [address] [place] [address], [place] [phone] September, [facility] [address] [id number] [address] [place] [address], [place] [phone] September, [facility] [address] [id number] [address] [place] [address], [place] [phone] September, [facility] [address] [id number] [address] [place] [address], [place] [phone] 14 Aug, 2014 [facility] [address] [id number] [address] [place] [address], [place] [address] Aug, [facility] [address] [id number] [address] [place] [address], [place] [address] 18 Jul, 2014 [facility] [address] [id number] [address] [place] [address], [place] [address] 18 Jul, 2014 [facility] [address] [id number] [address] [place] [address], [place] [address] 16 Jul, 2014 [facility] [address] [id number] [address] [place] [address], [place] [address] 16 Jul, 2014 [facility] [address] [id number] [address] [place] [address], [place] [address] 16 Jul, 2014 [facility] [address] [id number] [address] [place] [address], [place] [address] 16 Jul, 2014 [facility] [address] [id number] [address] [place] [address], [place] [address] 16 Jul, 2014 [facility] [address] [id number] [address] [place] [address], [place] [address] 16 Jul, 2014 [facility] [address] [id number] [address] [place] [address], [place] [address] 16 Jul, 2014 [facility] [address] [id number] [address] [place] [address], [place] [address] 13 Jul, 2014 [facility] [address] [id number] [address] [place] [address], [place] [address] 13 Jul, 2014 [facility] [address] [id number] [address] [place] [address], [place] [address] 09 Jul, 2014 [facility] [address] [id number] [address] [place] [address], [place] [address] 09 Jul, 2014 [facility] [address] [id number] [address] [place] [address], [place] [address] 17 Jul, 2014 [facility] [address] [id number] [address] [place] [address], [place] [address] 17 Jul, 2014 [facility] [address] [id number] [address] [place] [address], [place] [address] 16 Jul, 2014 [facility] [address] [id number] [address] [place] [address], [place] [address] 16 Jul, 2014 [facility] [address] [id number] [address] [place] [address], [place] [address] 16 Jul, 2014 [facility] [address] [id number] [address] [place] [address], [place] [address] 16 Jul, 2014 [facility] [address] [id number] [address] [place] [address], [place] [address] 16 Jul, 2014 [facility] [address] [id number] [address] [place] [id number] 16 Jul, 2014 [facility] [address] [id number] [address] [place] [address], [place] [address] 16 Jul, 2014 [facility] [address] [id number] [address] [place] [address], [place] [address] 16 Jul, 2014 [facility] [address] [id number] [address] [place] [address] 16 Jul, 2014 [facility] [address] [id number] [address] [place] [address] Jul, [facility] [address] [id number] [address] [place] [address], [place] [address] Jul, [facility] [address] [id number] [address] [place] [address], [place] [address] Jul, [facility] [address] [id number] [address] [place] [address], [place] [address] Jul, [facility] [address] [id number] [address] [place] [address], [place] [address] Jul, [facility] [address] [id number] [address] [place] [address], [place] [address] May, [facility] [address] [id number] [address] [place] [address], [place] [address] May, [facility] [address] [id number] [address] [place] [address], [place] [address] May, [facility] [address] [id number] [address] [place] [address], [place] [address] May, [facility] [address] [id number] [address] [place] [address], [place] [address] May, [facility] [address] [id number] [address] [place] [address], [place] [address] May, [facility] [address] [id number] [address] [place] [address], [place] [address] May, [facility] [address] [id number] [address] [place] [address], [place] [address] May, [facility] [address] [id number] [address] [place] [address], [place] [address] May, [facility] [address] [id number] [address] [place] [address], [place] [address] May, [facility] [address] [id number] [address] [place] [address], [place] [address] Apr, [facility] [address] [id number] [address] [place] [address], [place] [address] Apr, [facility] [address] [id number] [address] [place] [address], [place] [address] Apr, [facility] [address] [id number] [address] [place] [address], [place] [address] Apr, [facility] [address] [id number] [address] [place] [address], [place] [address] Apr, [facility] [address] [id number] [address] [place] [address], [place] [address] Apr, [facility] [address] [id number] [address] [place] [address], [place] [address] Mar, [facility] [address] [id number] [address] [place] [address], [place] [address] Mar, [facility] [address] [id number] [address] [place] [address], [place] [address] Mar, [facility] [address] [id number] [address] [place] [address], [place] [address] Mar, [facility] [address] [id number] [address] [place] [address], [place] [address] Mar, [facility] [address] [id number] [address] [place] [address], [place] [address] Mar, [facility] [address] [id number] [address] [place] [address], [place] [address] Mar, [facility] [address] [id number] [address] [place] [address], [place] [address] Mar, [facility] [address] [id number] [address] [place] [address], [place] [address] Mar, [facility] [address] [id number] [address] [place] [address], [place] [address] Mar, [facility] [address] [id number] [address] [place] [address] Mar, [facility] [address] [id number] [address] [place] [address], [place] [address] Feb, [facility] [address] [id number] [address] [place] [address], [place] [address] Feb, [facility] [address] [id number] [address] [place] [address], [place] [address] Feb, [facility] [address] [id number] [address] [place] [address], [place] [address] Feb, [facility] [address] [id number] [address] [place] [address], [place] [address] Feb, [facility] [address] [id number] [address] [place] [address], [place] [address] Feb, [facility] [address] [id number] [address] [place] [address], [place] [address] Feb, [facility] [address] [id number] [address] [place] [address], [place] [address] Feb, [facility] [address] [id number] [address] [place] [address], [place] [address] Feb, [facility] [address] [id number] [address] [place] [address], [place] [address] Feb, [facility] [address] [id number] [address] [place] [address], [place] [address] 22 Jan, 2014 [facility] [address] [id number] [address] [place] [address], [place] [address] 22 Jan, 2013 [facility] [address] [id number] [address] [place] [address], [place] [address] 16 Jan, 2013 [facility] [address] [id number] [address] [place] [address], [place] [address] 16 Jan, 2013 [facility] [address] [id number] [address] [place] [address], [place] [address] 12 Jan, 2013 [facility] [address] [id number] [facility] [address] Jan, [facility] [address] [id number] [address] [place] [address], [place] [address] Jan, [facility] [address] [id number] [address] [place] [address], [place] [address] Dec, [facility] [address] [id number] [address] [place] [address], [place] [address] Dec, [facility] [address] [id number] [address] [place] [address], [place] [address] Dec, [facility] [address] [id number] [address] [place] [address], [place] [address] Dec, [facility] [address] [id number] [address] [place] [address], [place] [address] Dec, [facility] [address] [id number] [address] [place] [address], [place] [address] Dec, [facility] [address] [id number] [address] [place] [address], [place] [address] Dec, [facility] [address] [id number] [address] [place] [address], [place] [address] Dec, [facility] [address] [id number] [address] [place] [address], [place] [address] Oct, [facility] [address] [id number] [address] [place] [address], [place] [address] Oct, [facility] [address] [id number] [address] [place] [address], [place] [address] September, [facility] [address] [id number] [address] [place] [address], [place] [address] September, [facility] [address] [id number] [address] [place] [address], [place] [address] September, [facility] [address] [id number] [address] [place] [address], [place] [address] September, [facility] [address] [id number] [address] [place] [address], [place] [address] September, [facility] [address] [id number] [address] [place] [address], [place] [address] September, [facility] [address] [id number] [address] [place] [address], [place] [address] September, [facility] [address] [id number] [address] [place] [address], [place] [address] Aug, [facility] [address] [id number] [address] [place] [address], [place] [address] Aug, [facility] [address] [id number] [address] [place] [address], [place] [address] Jul, [facility] [address] [id number] [address] [place] [address], [place] [address] Jul, [facility] [address] [id number] [address] [place] [address], [place] [address] Jul, [facility] [address] [id number] [address] [place] [address], [place] [address] Jul, [facility] [address] [id number] [address] [place] [address], [place] [address] Jul, [facility] [address] [id number] [address] [place] [address], [place] [address] Jul, [facility] [address] [id number] [address] [place] [address], [place] [address] Jul, [facility] [address] [id number] [address] [place] [address], [place] [address] Jul, [facility] [address] [id number] [address] [place] [address], [place] [address] May, [facility] [address] [id number] [address] [place] [address], [place] [address] May, [facility] [address] [id number] [address] [place] [address], [place] [address] 14 May, 2013 [facility] [address] [id number] [address] [place] [address], [place] [address] 14 May, 2013 [facility] [address] [id number] [address] [place] [address], [place] [address] 18 Apr, 2013 [facility] [address] [id number] [address] [place] [address], [place] [address] 20 Mar, 2013 [facility] [address] [id number] [address] [place] [address], [place] [address] Mar, [facility] [address] [id number] [address] [place] [address], [place] [address] Mar, [facility] [address] [id number] [address] [place] [address], [place] [address] Mar, [facility] [address] [id number] [address] [place] [address], [place] [address] 18 Mar, 2013 [facility] [address] [id number] [address] [place] [address], [place] [address] 18 Mar, 2013 [facility] [address] [id number] [address] [place] [address], [place] [address] 18 Mar, 2013 [facility] [address] [id number] [address] [place] [address], [place] [address] 18 Mar, 2013 [facility] [address] [id number] [address] [place] [address], [place] [address] Mar, [facility] [address] [id number] [address] [place] [address], [place] [address] 11 Mar, 2013 [facility] [address] [id number] [address] [place] [address], [place] [address] 04 Mar, 2013 [facility] [address] [id number] [address] [place] [address], [place] [address] 04 Mar, 2013 [facility] [address] [id number] [address] [place] [address], [place] [address] 15 Feb, 2013 [facility] [address] [id number] [address] [place] [address], [place] [address] 15 Feb, 2013 [facility] [address] [id number] [address] [place] [address], [place] [address] Feb, [facility] [address] [id number] [address] [place] [address], [place] [address] Feb, [facility] [address] [id number] [address] [place] [address], [place] [address] Feb, [facility] [address] [id number] [address] [place] [address], [place] [address] Jan, [facility] [address] [id number] [address] [place] [address], [place] [address] Dec, [facility] [address] [id number] [address] [place] [address], [place] [address] Dec, [facility] [address] [id number] [address] [place] [address], [place] [address] Dec, [facility] [address] [id number] [address] [place] [address], [place] [address] Nov, [facility] [address] [id number] [address] [place] [address], [place] [address] Nov, [facility] [address] [id number] [address] [place] [address], [place] [address] Nov, [facility] [address] [id number] [address] [place] [address], [place] [address] Oct, [facility] [address] [id number] [address] [place] [address], [place] [address] Oct, [facility] [address] [id number] [address] [place] [address], [place] [address] Oct, [facility] [address] [id number] [address] [place] [address], [place] [address] September, [facility] [address] [id number] [address] [place] [address] [place] [address] September, [facility] [address] [id number] [address] [place] [address], [place] [address] September, [facility] [address] [id number] [address] [place] [address], [place] [address] September, [facility] [address] [id number] [address] [place] [address], [place] [address] September, [facility] [address] [id number] [address] [place] [address], [place] [address] Aug, [facility] [address] [id number] [address] [place] [address], [place] [address] Aug, [facility] [address] [id number] [address] [place] [address], [place] [address] Aug, [facility] [address] [id number] [address] [place] [address], [place] [address] Jul, [facility] [address] [id number] [address] [place] [address], [place] [address] Jul, [facility] [address] [id number] [address] [place] [address], [place] [address] Jul, [facility] [address] [id number] [address] [place] [address], [place] [address] Jul, [facility] [address] [id number] [address] [place] [address], [place] [address] Jul, [facility] [address] [id number] [address] [place] [address], [place] [address] Jul, [facility] [address] [id number] [address] [place] [address], [place] [address] Jul, [facility] [address] [id number] [address] [place] [address], [place] [address] May, [facility] [address] [id number] [address] [place] [address], [place] [address] May, [facility] [address] [id number] [address] [place] [address], [place] [address] May, [facility] [address] [id number] [address] [place] [address], [place] [address] Apr, [facility] [address] [id number] [address] [place] [address], [place] [address] Apr, [facility] [address] [id number] [address] [place] [address], [place] [address] Apr, [facility] [address] [id number] [address] [place] [address], [place] [address] Apr, [facility] [address] [id number] [address] [place] [address], [place] [address] Apr, [facility] [address] [id number] [address] [place] [address], [place] [address] Mar, [facility] [address] [id number] [address] [place] [address], [place] [address] Mar, [facility] [address] [id number] [address] [place] [address], [place] [address] Mar, [facility] [address] [id number] [address] [place] [address], [place] [address] Mar, [facility] [address] [id number] [address] [place] [address], [place] [address] Feb, [facility] [address] [id number] [address] [place] [address], [place] [address] Feb, [facility] [address] [id number] [address] [place] [address], [place] [address] Feb, [facility] [address] [id number] [address] [place] [address], [place] [address] Feb, [facility] [address] [id number] [address] [place] [address], [place] [address] Feb, [facility] [address] [id number] [address] [place] [address], [place] [address] Jan, [facility] [address] [id number] [address] [place] [address], [place] [address] Dec, [facility] [address] [id number] [address] [place] [address], [place] [address] Dec, [facility] [address] [id number] [address] [place] [address], [place] [address] Dec, [facility] [address] [id number] [address] [place] [address], [place] [address] Nov, [facility] [address] [id number] [address] [place] [address], [place] [address] Nov, [facility] [address] [id number] [address] [place] [address], [place] [address] Nov, [facility] [address] [id number] [address] [place] [address], [place] [address] Oct, [facility] [address] [id number] [address] [place] [address], [place] [address] Oct, [facility] [address] [id number] [address] [place] [address], [place] [address] Oct, [facility] [address] [id number] [address] [place] [address], [place] [address] Oct, [facility] [address] [id number] [address] [place] [address], [place] [address] September, [facility] [address] [id number] [address] [place] [address], [place] [address] September, [facility] [address] [id number] [address] [place] [address], [place] [address] 30 Aug, 2011 [facility] [address] [id number] [address] [place] [address], [place] [address] 23 Aug, 2011 [facility] [address] [id number] [address] [place] [address], [place] [address] Aug, [facility] [address] [id number] [address] [place] [address], [place] [address] Aug, [facility] [address] [id number] [address] [place] [address], [place] [address] Aug, [facility] [address] [id number] [address] [place] [address], [place] [address] Aug, [facility] [address] [id number] [address] [place] [address], [place] [address] Aug, [facility] [address] [id number] [address] [place] [address], [place] [address] Jul, [facility] [address] [id number] [address] [place] [address], [place] [address] Jul, [facility] [address] [id number] [address] [place] [address], [place] [address] Jul, [facility] [address] [id number] [address] [place] [address], [place] [address] May, [facility] [address] [id number] [address] [place] [address], [place] [address] May, [facility] [address] [id number] [address] [place] [address], [place] [address] May, [facility] [address] [id number] [address] [place] [address], [place] [phone] Apr, [facility] [address] [id number] [address] [place] [address], [place] [address] Apr, [facility] [address] [id number] [address] [place] [address], [place] [address] Mar, [facility] [address] [id number] [address] [place] [address], [place] [address] Mar, [facility] [address] [id number] [address] [place] [address], [place] [address] Mar, [facility] [address] [id number] [address] [place] [address], [place] [address] Mar, [facility] [address] [facility] [id number] [address] [place] [phone] Mar, [facility] [address] [facility] [id number] [address] [place] [phone] Mar, [facility] [address] [facility] [id number] [address] [place] [phone] Feb, [facility] [address] [facility] [id number] [address] [place] [phone] Feb, [facility] [address] [facility] [id number] [address] [place] [phone] Feb, IMMUNIZATIONS No Known Immunizations SOCIAL HISTORY [...]
--- OUTSIDE RECORDS SUMMARY | 2020-01-03 07:46 | XMS REPORT ---
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 Name Role Phone FERNY SILVERIO Unavailable PROBLEMS Type Condition ICD9-CM Code IMZ15-MN Code Onset Dates Condition S tatus SNOMED Code Problem Insulin long-term use Z79.4 Active 793949582 Problem Hypertension I10 Active 5123080 3 Problem Diabetes E11.9 Active 93937144 Problem Hypoxia R09.02 Active 025685652 Problem Anxiety F41.9 Active 93140841 Problem Port catheter in place Z95.828 Active 301777469 Problem Pressure ulcer of other site, stage 3 L89.893 Active 880476891 Problem COPD (chronic obstructive pulmonary disease) J44.9 Active 51315392 Problem Type 2 diabetes mellitus wit h diabetic peripheral angiopathy without gangrene E11.51 Active 702297746 Problem Back pain M54.9 Active 886798100 Problem PAD (peripheral artery disease) I73.9 Active 008243145 Problem Lumbar radiculopathy, chronic M54.16 Active 476946288 Problem Recurrent major depressive disorder, in full remission F33.42 Active 192007048 Problem [facility] current use of insulin Z79.4 Active 764141394 ALLERGIES No Information ENCOUNTERS Encounter Location Date Diagnosis [facility] [address] [facility] [place] [id number] [address] [place] [id number] Dec, [facility] [address] [facility] [place] [id number] [address] [place] [address] Nov, Anxiety F41.9 [facility] [address] [facility] [place] [id number] [address] [place] [id number] Nov, [facility] [address] [facility] [place] [id number] [address] [place] [address] Nov, Back pain M54.9 [facility] [address] [id number] [address] [place] [id number] Nov, [facility] [address] [id number] [address] [place] [id number] Nov, Back pain M54.9 [facility] [address] [id number] [address] [place] [address] Nov, Anxiety F41.9 [facility] [address] [id number] [address] [place] [address] Nov, [facility] [address] [id number] [address] [place] [id number] Oct, Back pain M54.9 [facility] [address] [id number] [address] [place] [id number] Oct, [facility] [address] [id number] [address] [place] [id number] Oct, [facility] [address] [id number] [address] [place] [id number] Oct, [facility] [address] [id number] [address] [place] [address] September, Back pain M54.9 [facility] [address] [id number] [address] [place] [address] September, [facility] [address] [id number] [address] [place] [address] September, [facility] [address] [id number] [address] [place] [id number] September, [facility] [address] [id number] [address] [place] [address] Aug, Back pain M54.9 [facility] [address] [id number] [address] [place] [id number] Aug, Anxiety F41.9 [facility] [address] [id number] [address] [place] [address] Aug, [facility] [address] [facility] [place] [id number] [address] [place] [address] Aug, Pressure ulcer of other site , stage 3 L89.893 and COPD (chronic obstructive pulmonary disease) J44.9 [facility] [address] [facility] [place] [id number] [address] [place] [address] Aug, History of smoking Z87.891 [facility] [address] [id number] [address] [place] [id number] Jul, Type 2 diabetes mellitus wit h diabetic peripheral angiopathy without gangrene E11.51 [place] [address] [facility] [place] [id number] [address] [place] [address] Jul, Back pain M54.9 [place] [address] [place] [id number] [address] [place] [address] Jul, Anxiety F41.9 [place] [address] [facility] [place] [id number] [address] [place] [address] Jul, [facility] [address] [facility] [place] [id number] [address] [place] [address] Jul, Back pain M54.9 [place] [address] [facility] [place] [id number] [address] [place] [address] Jul, Back pain M54.9 [place] [address] [facility] [place] [id number] [address] [place] [id number] Jul, Lumbar radiculopathy, chroni c M54.16 ; Hypertension I10 and Type 2 diabetes mellitus with diabetic peripheral angiopathy without gangrene E11.51 [place] [address] [facility] [place] [id number] [address] [place] [address] Jul, Back pain M54.9 [place] [address] [facility] [place] [id number] [address] [place] [address] Jul, Back pain M54.9 and Anxiety F41.9 [place] [address] [id number] [address] [place] [id number] Jul, [facility] [address] [id number] [address] [place] [address] May, Back pain M54.9 and Anxiety F41.9 [facility] [address] [facility] [place] [id number] [address] [place] [address] May, [facility] [address] [facility] [place] [id number] [address] [place] [address] Apr, Radiculopathy of lumbar rhiannon on M54.16 ; Back pain M54.9 and Anxiety F41.9 [facility] [address] [id number] [address] [place] [address] Apr, Diabetes E11.9 ; Muscle spas m M62.838 and Lumbar radiculopathy, chronic M54.16 [facility] [address] [id number] [address] [place] [address] Apr, [facility] [address] [id number] [address] [place] [address] Apr, [facility] [address] [facility] [place] [id number] [address] [place] [address] Mar, Back pain M54.9 and Anxiety F41.9 [facility] [address] [id number] [address] [place] [address] Mar, [facility] [address] [facility] [place] [id number] [address] [place] [address] Mar, [facility] [address] [id number] [address] [place] [id number] Mar, [facility] [address] [facility] [place] [id number] [address] [place] [id number] Mar, Encounter for immunization Z 23 [facility] [address] [facility] [place] [id number] [address] [place] [address] Feb, Back pain M54.9 and Anxiety F41.9 [facility] [address] [id number] [address] [place] [id number] 04 Feb, 2018 Back pain M54.9 and Anxiety F41.9 [facility] [address] [id number] [address] [place] [address] Jan, Back pain M54.9 and Anxiety F41.9 [facility] [address] [id number] [address] [place] [id number] Jan, [facility] [address] [id number] [address] [place] [address] Dec, [facility] [address] [id number] [address] [place] [id number] Dec, Back pain M54.9 and Anxiety F41.9 [facility] [address] [id number] [address] [place] [id number] Dec, Diabetes E11.9 ; Type 2 diab etes mellitus with diabetic peripheral angiopathy without gangrene E11.51 ; Lumbar radiculopathy, chronic M54.16 ; COPD (chronic obstructive pulmonary disease) J44.9 and Anxiety F41.9 [facility] [address] [id number] [address] [place] [address] Dec, Back pain M54.9 and Anxiety F41.9 [facility] [address] [id number] [address] [place] [address] Nov, Back pain M54.9 and Anxiety F41.9 [facility] [address] [id number] [address] [place] [id number] Oct, [facility] [address] [id number] [address] [place] [address] Oct, Back pain M54.9 and Anxiety F41.9 [facility] [address] [facility] [place] [id number] [address] [place] [address] September, Anxiety F41.9 and Back pain M54.9 [facility] [address] [id number] [address] [place] [address] September, Diabetes E11.9 ; Hypertensio n I10 ; COPD (chronic obstructive pulmonary disease) J44.9 and Lumbar radiculopathy, chronic M54.16 [place] [address] [facility] [place] [id number] [address] [place] [address] September, Anxiety F41.9 [place] [address] [facility] [place] [id number] [address] [place] [address] Aug, [place] [address] [facility] [place] [id number] [address] [place] [address] Aug, [place] [address] [facility] [place] [id number] [address] [place] [address] Aug, Anxiety F41.9 and Back pain M54.9 [place] [address] [facility] [place] [id number] [address] [place] [address] Aug, Medicare annual wellness vis it, initial [...] peripheral angiopathy without gangrene E11.51 and 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 [place] [address] [facility] [place] [id number] [address] [place] [address] Jul, Back pain M54.9 [place] [address] [facility] [place] [id number] [address] [place] [address] Jul, [place] [address] [facility] [place] [id number] [address] [place] [address] Jul, Anxiety F41.9 and Back pain M54.9 [place] [address] [facility] [place] [id number] [address] [place] [id number] Jul, Diabetes E11.9 [facility] [address] [id number] [address] [place] [id number] May, [facility] [address] [id number] [address] [place] [address] May, Diabetes E11.9 ; Anxiety F41 .9 ; Back pain M54.9 and COPD (chronic obstructive pulmonary disease) J44.9 [facility] [address] [id number] [address] [place] [id number] May, Back pain M54.9 [facility] [address] [id number] [address] [place] [id number] May, [facility] [address] [id number] [address] [place] [address] Apr, Back pain M54.9 [facility] [address] [id number] [address] [place] [address] Mar, Back pain M54.9 [facility] [address] [id number] [address] [place] [id number] Mar, [facility] [address] [id number] [address] [place] [id number] 16 Mar, 2017 [facility] [address] [facility] [place] [id number] [address] [place] [id number] 14 Mar, 2017 Radiculopathy of lumbar rhiannon on M54.16 [facility] [address] [id number] [address] [place] [id number] 13 Mar, 2017 [facility] [address] [facility] [place] [id number] [address] [place] [id number] 07 Mar, 2017 Encounter for immunization Z 23 and Lumbar radiculopathy, chronic M54.16 [facility] [address] [id number] [address] [place] [id number] Mar, Back pain M54.9 and Anxiety F41.9 [facility] [address] [id number] [address] [place] [id number] Feb, Acute bilateral low back boy n with left-sided sciatica M54.42 and Acute bilateral low back pain with right-sided sciatica M54.41 [facility] [address] [id number] [address] [place] [id number] Feb, [facility] [address] [id number] [address] [place] [id number] Feb, Back pain M54.9 [facility] [address] [id number] [address] [place] [id number] 05 Jan, 2017 Back pain M54.9 and Anxiety F41.9 [facility] [address] [id number] [address] [place] [id number] 05 Jan, 2017 Diabetes E11.9 [facility] [address] [id number] [address] [place] [id number] Dec, Diabetes E11.9 ; Back pain M 54.9 ; Anxiety F41.9 and Insulin long- term use Z79.4 [facility] [address] [id number] [address] [place] [id number] Dec, Anxiety F41.9 [facility] [address] [id number] [address] [place] [id number] Dec, Back pain M54.9 [facility] [address] [id number] [address] [place] [address] Nov, Back pain M54.9 [facility] [address] [id number] [address] [place] [address] Oct, Back pain M54.9 and Anxiety F41.9 [facility] [address] [id number] [address] [place] [address] September, Back pain M54.9 [facility] [address] [id number] [address] [place] [address] September, Back pain M54.9 and Anxiety F41.9 [facility] [address] [id number] [address] [place] [address] Aug, Diabetes E11.9 ; Anxiety F41 .9 ; Back pain M54.9 and PAD (peripheral artery disease) I73.9 [facility] [address] [id number] [address] [place] [id number] 19 Aug, 2016 Anxiety F41.9 [facility] [address] [id number] [address] [place] [address] Aug, Back pain M54.9 [facility] [address] [id number] [address] [place] [address] Jul, Back pain M54.9 [facility] [address] [id number] [address] [place] [id number] Jul, Back pain M54.9 [facility] [address] [id number] [address] [place] [id number] Jul, Back pain M54.9 [facility] [address] [id number] [address] [place] [id number] 16 Jul, 2016 Dorsalgia M54.9 [facility] [address] [id number] [address] [place] [id number] Jul, [facility] [address] [facility] [place] [id number] [address] [place] [address] May, Back pain M54.9 [facility] [address] [facility] [place] [id number] [address] [place] [address] May, Diabetes E11.9 ; Anxiety F41 .9 ; Port catheter in place Z95.828 ; Encounter for immunization Z23 and Insulin long-term use Z79.4 [facility] [address] [id number] [address] [place] [phone] Apr, Back pain M54.9 [facility] [address] [id number] [address] [place] [address] Apr, Back pain M54.9 [facility] [address] [id number] [address] [place] [id number] Apr, [facility] [address] [id number] [address] [place] [id number] Apr, Back pain M54.9 [facility] [address] [id number] [address] [place] [id number] Mar, COPD (chronic obstructive pu lmonary disease) J44.9 [facility] [address] [id number] [address] [place] [id number] Feb, [facility] [address] [id number] [address] [place] [id number] 30 Jan, 2016 [facility] [address] [id number] [address] [place] [id number] Jan, [facility] [address] [id number] [address] [place] [address] Jan, [facility] [address] [id number] [address] [place] [id number] Jan, [facility] [address] [id number] [address] [place] [address] Dec, Diabetes E11.9 ; Hypoxia R09 .02 and Back pain M54.9 [facility] [address] [id number] [address] [place] [address] Dec, [facility] [address] [id number] [address] [place] [id number] Nov, [facility] [address] [id number] [address] [place] [address] Oct, Anxiety F41.9 [facility] [address] [id number] [address] [place] [address] Oct, Back pain M54.9 [facility] [address] [id number] [address] [place] [address] September, Back pain M54.9 [facility] [address] [facility] [place] [id number] [address] [place] [id number] September, Diabetes E11.9 [facility] [address] [facility] [place] [id number] [address] [place] [id number] September, [facility] [address] [facility] [place] [id number] [address] [place] [address] September, Diabetes E11.9 ; Insulin sarai g-term use Z79.4 and Back pain M54.9 [facility] [address] [facility] [place] [id number] [address] [place] [id number] Aug, Back pain M54.9 [facility] [address] [facility] [place] [id number] [address] [place] [id number] Aug, Back pain M54.9 ; Anxiety F4 1.9 and Arthropathy, unspecified M12.9 [facility] [address] [facility] [place] [id number] [address] [place] [address] Jul, Back pain M54.9 [facility] [address] [facility] [place] [id number] [address] [place] [id number] Jul, Anxiety F41.9 [facility] [address] [facility] [place] [id number] [address] [place] [id number] Jul, Back pain M54.9 [facility] [address] [facility] [place] [id number] [address] [place] [address] Jul, [facility] [address] [facility] [place] [id number] [address] [place] [id number] Jul, [facility] [address] [facility] [place] [id number] [address] [place] [id number] May, Back pain M54.9 ; Diabetes E 11.9 ; Insulin long-term use Z79.4 ; COPD (chronic obstructive pulmonary disease) J44.9 and Hypertension I10 [facility] [address] [facility] [place] [id number] [address] [place] [id number] May, Chronic pain G89.29 [facility] [address] [id number] [address] [place] [id number] Apr, [facility] [address] [id number] [address] [place] [id number] Apr, [facility] [address] [id number] [address] [place] [id number] Mar, [facility] [address] [id number] [address] [place] [id number] Mar, Encounter for immunization Z 23 and Diabetes E11.9 [facility] [address] [id number] [address] [place] [id number] Feb, [facility] [address] [id number] [address] [place] [id number] Feb, [facility] [address] [id number] [address] [place] [id number] Jan, [facility] [address] [id number] [address] [place] [id number] Jan, [facility] [address] [id number] [address] [place] [id number] Dec, [facility] [address] [id number] [address] [place] [address] Dec, [facility] [address] [id number] [address] [place] [id number] Dec, Unspecified arthropathy, sit e unspecified 716.90 and Diabetes mellitus type 2, uncontrolled 250.02 [facility] [address] [id number] [address] [place] [id number] Dec, [facility] [address] [id number] [address] [place] [id number] Nov, [facility] [address] [id number] [address] [place] [id number] Oct, [facility] [address] [id number] [address] [place] [id number] September, [facility] [address] [id number] [address] [place] [address], [place] [address] September, [facility] [address] [id number] [address] [place] [address], [place] [address] September, [facility] [address] [id number] [address] [place] [address], [place] [address] September, [facility] [address] [id number] [address] [place] [address], [place] [id number] 14 Aug, 2014 [facility] [address] [id number] [address] [place] [address], [place] [address] 13 Aug, 2014 [facility] [address] [id number] [address] [place] [address], [place] [address] 18 Jul, 2014 [facility] [address] [id number] [address] [place] [address], [place] [address] 18 Jul, 2014 [facility] [address] [id number] [address] [place] [address], [place] [address] 16 Jul, 2014 [facility] [address] [id number] [address] [place] [address], [place] [address] 16 Jul, 2014 [facility] [address] [id number] [address] [place] [address], [place] [address] 16 Jul, 2014 [facility] [address] [id number] [address] [place] [address], [place] [address] 16 Jul, 2014 [facility] [address] [id number] [address] [place] [address], [place] [address] 16 Jul, 2014 [facility] [address] [id number] [address] [place] [address], [place] [address] 16 Jul, 2014 [facility] [address] [id number] [address] [place] [address], [place] [address] 16 Jul, 2014 [facility] [address] [id number] [address] [place] [address], [place] [address] 13 Jul, 2014 [facility] [address] [id number] [address] [place] [address], [place] [id number] 13 Jul, 2014 [facility] [address] [id number] [address] [place] [address], [place] [address] 09 Jul, 2014 [facility] [address] [id number] [address] [place] [place] [address], [place] [address] 09 Jul, 2014 [facility] [address] [id number] [address] [place] [address], [place] [address] 17 Jul, 2014 [facility] [address] [id number] [address] [place] [address], [place] [address] 17 Jul, 2014 [facility] [address] [id number] [address] [place] [address], [place] [address] 16 Jul, 2014 [facility] [address] [id number] [address] [place] [address], [place] [address] 16 Jul, 2014 [facility] [address] [id number] [address] [place] [address], [place] [address] 16 Jul, 2014 [facility] [address] [id number] [address] [place] [address], [place] [address] 16 Jul, 2014 [facility] [address] [id number] [address] [place] [address], [place] [address] 16 Jul, 2014 [facility] [address] [id number] [address] [place] [address], [place] [address] 16 Jul, 2014 [facility] [address] [id number] [address] [place] [address], [place] [address] 16 Jul, 2014 [facility] [address] [id number] [address] [place] [address], [place] [address] 16 Jul, 2014 [facility] [address] [id number] [address] [place] [address], [place] [address] 16 Jul, 2014 [facility] [address] [id number] [address] [place] [address], [place] [address] 16 Jul, 2014 [facility] [address] [id number] [address] [place] [address] [place] [address] 16 Jul, 2014 [facility] [address] [id number] [address] [place] [address], [place] [address] Jul, [facility] [address] [id number] [address] [place] [place] [address], [place] [address] Jul, [facility] [address] [id number] [address] [place] [address], [place] [address] Jul, [facility] [address] [id number] [address] [place] [place] [address], [place] [address] May, [facility] [address] [id number] [address] [place] [address], [place] [address] May, [facility] [address] [id number] [address] [place] [address], [place] [address] May, [facility] [address] [id number] [address] [place] [address], [place] [address] May, [facility] [address] [id number] [address] [place] [address], [place] [address] May, [facility] [address] [id number] [address] [place] [address], [place] [address] May, [facility] [address] [id number] [address] [place] [address], [place] [address] May, [facility] [address] [id number] [address] [place] [address], [place] [address] May, [facility] [address] [id number] [address] [place] [address], [place] [address] May, [facility] [address] [id number] [address] [place] [address], [place] [address] May, [facility] [address] [id number] [address] [place] [address], [place] [address] Apr, [facility] [address] [id number] [address] [place] [address], [place] [address] Apr, [facility] [address] [id number] [address] [place] [place] [address], [place] [address] Apr, [facility] [address] [id number] [address] [place] [address], [place] [address] Apr, [facility] [address] [id number] [address] [place] [address], [place] [address] Apr, [facility] [address] [id number] [address] [place] [address], [place] [address] Apr, [facility] [address] [id number] [address] [place] [address], [place] [address] Mar, [facility] [address] [id number] [address] [place] [address], [place] [address] Mar, [facility] [address] [id number] [address] [place] [address], [place] [address] Mar, [facility] [address] [id number] [address] [place] [address], [place] [address] Mar, [facility] [address] [id number] [address] [place] [address], [place] [address] Mar, [facility] [address] [id number] [address] [place] [address], [place] [address] Mar, [facility] [address] [id number] [address] [place] [place] [address], [place] [address] Mar, [facility] [address] [id number] [address] [place] [place] [address], [place] [address] Mar, [facility] [address] [id number] [address] [place] [address], [place] [address] Mar, [facility] [address] [id number] [address] [place] [address], [place] [address] Mar, [facility] [address] [id number] [address] [place] [place] [address], [place] [address] Mar, [facility] [address] [id number] [address] [place] [place] [address], [place] [address] Feb, [facility] [address] [id number] [address] [place] [address], [place] [address] 30 Feb, 2014 [facility] [address] [id number] [address] [place] [address], [place] [address] Feb, [facility] [address] [id number] [address] [place] [address], [place] [address] Feb, [facility] [address] [id number] [address] [place] [address], [place] [address] Feb, [facility] [address] [id number] [address] [place] [address], [place] [address] Feb, [facility] [address] [id number] [address] [place] [place] [address], [place] [address] Feb, [facility] [address] [id number] [address] [place] [address], [place] [address] Feb, [facility] [address] [id number] [address] [place] [place] [address], [place] [address] Feb, [facility] [address] [id number] [address] [place] [address], [place] [address] Feb, [facility] [address] [id number] [address] [place] [address], [place] [address] 22 Jan, 2013 [facility] [address] [id number] [address] [place] [address], [place] [address] 22 Jan, 2013 [facility] [address] [id number] [address] [place] [place] [address], [place] [address] 16 Jan, 2013 [facility] [address] [id number] [address] [place] [address], [place] [address] 16 Sep, 2013 [facility] [address] [id number] [address] [place] [place] [address], [place] [address] 12 Jan, 2013 [facility] [address] [id number] [address] [place] [place] [address], [place] [address] 04 Jan, 2013 [facility] [address] [id number] [address] [place] [place] [address], [place] [address] Jan, [facility] [address] [id number] [address] [place] [place] [address], [place] [address] Dec, [facility] [address] [id number] [address] [place] [address], [place] [address] Dec, [facility] [address] [id number] [address] [place] [address], [place] [address] Dec, [facility] [address] [id number] [address] [place] [place] [address], [place] [address] Dec, [facility] [address] [id number] [address] [place] [address], [place] [address] Dec, [facility] [address] [id number] [address] [place] [address], [place] [address] Dec, [facility] [address] [id number] [address] [place] [place] [address], [place] [address] Dec, [facility] [address] [id number] [address] [place] [address], [place] [address] Dec, [facility] [address] [id number] [address] [place] [place] [address], [place] [address] Oct, [facility] [address] [id number] [address] [place] [address], [place] [address] Oct, [facility] [address] [id number] [address] [place] [address], [place] [address] September, [facility] [address] [id number] [address] [place] [address], [place] [address] September, [facility] [address] [id number] [address] [place] [address], [place] [address] September, [facility] [address] [id number] [address] [place] [address], [place] [address] September, [facility] [address] [id number] [address] [place] [address], [place] [address] September, [facility] [address] [id number] [address] [place] [address] September, [facility] [address] [id number] [address] [place] [place] [address], [place] [address] September, [facility] [address] [id number] [address] [place] [place] [address], [place] [address] Aug, [facility] [address] [id number] [address] [place] [place] [address], [place] [address] Aug, [facility] [address] [id number] [address] [place] [place] [address], [place] [address] Jul, [facility] [address] [id number] [address] [place] [place] [address], [place] [address] Jul, [facility] [address] [id number] [address] [place] [place] [address], [place] [address] Jul, [facility] [address] [id number] [address] [place] [place] [address], [place] [address] Jul, [facility] [address] [id number] [address] [place] [place] [address], [place] [address] Jul, [facility] [address] [id number] [address] [place] [place] [address], [place] [address] Jul, [facility] [address] [id number] [address] [place] [place] [address], [place] [address] Jul, [facility] [address] [id number] [address] [place] [place] [address], [place] [address] Jul, [facility] [address] [id number] [address] [place] [address], [place] [address] May, [facility] [address] [id number] [address] [place] [place] [address], [place] [address] May, [facility] [address] [id number] [address] [place] [place] [address], [place] [address] May, [facility] [address] [id number] [address] [place] [place] [address], [place] [address] 14 May, 2013 [facility] [address] [id number] [address] [place] [place] [address], [place] [address] 18 Apr, 2013 [facility] [address] [id number] [address] [place] [place] [address], [place] [address] 20 Mar, 2013 [facility] [address] [id number] [address] [place] [place] [address], [place] [address] 20 Mar, 2013 [facility] [address] [id number] [address] [place] [place] [address], [place] [address] Mar, [facility] [address] [id number] [address] [place] [place] [address], [place] [address] Mar, [facility] [address] [id number] [address] [place] [place] [address], [place] [address] 18 Mar, 2013 [facility] [address] [id number] [address] [place] [place] [address], [place] [address] 18 Mar, 2013 [facility] [address] [id number] [address] [place] [place] [address], [place] [address] 18 Mar, 2013 [facility] [address] [id number] [address] [place] [place] [address], [place] [address] 18 Mar, 2013 [facility] [address] [id number] [address] [place] [place] [address], [place] [address] 11 Mar, 2013 [facility] [address] [id number] [address] [place] [place] [address], [place] [address] 11 Mar, 2013 [facility] [address] [id number] [address] [place] [place] [address], [place] [address] 04 Mar, 2013 [facility] [address] [id number] [address] [place] [place] [address], [place] [address] 04 Mar, 2013 [facility] [address] [id number] [address] [place] [place] [address], [place] [address] 15 Feb, 2013 [facility] [address] [id number] [address] [place] [address] Feb, [facility] [address] [id number] [address] [place] [place] [address], [place] [address] Feb, [facility] [address] [id number] [address] [place] [place] [address], [place] [address] Feb, [facility] [address] [id number] [address] [place] [place] [address], [place] [address] Feb, [facility] [address] [id number] [address] [place] [place] [address], [place] [address] Jan, [facility] [address] [id number] [address] [place] [place] [address], [place] [address] Dec, [facility] [address] [id number] [address] [place] [place] [address], [place] [address] Dec, [facility] [address] [id number] [address] [place] [place] [address], [place] [address] Dec, [facility] [address] [id number] [address] [place] [place] [address], [place] [address] Nov, [facility] [address] [id number] [address] [place] [place] [address], [place] [address] Nov, [facility] [address] [id number] [address] [place] [place] [address], [place] [address] Nov, [facility] [address] [id number] [address] [place] [place] [address], [place] [address] Oct, [facility] [address] [id number] [address] [place] [place] [address], [place] [address] Oct, [facility] [address] [id number] [address] [place] [place] [address], [place] [address] Oct, [facility] [address] [id number] [address] [place] [place] [address], [place] [address] September, [facility] [address] [id number] [address] [place] [address], [place] [address] September, [facility] [address] [id number] [address] [place] [address], [place] [address] September, [facility] [address] [id number] [address] [place] [address], [place] [address] September, [facility] [address] [id number] [address] [place] [address], [place] [address] September, [facility] [address] [id number] [address] [place] [address], [place] [address] Aug, [facility] [address] [id number] [address] [place] [address], [place] [address] Aug, [facility] [address] [id number] [address] [place] [address], [place] [address] Aug, [facility] [address] [id number] [address] [place] [address], [place] [address] Jul, [facility] [address] [id number] [address] [place] [address], [place] [address] Jul, [facility] [address] [id number] [address] [place] [address], [place] [address] Jul, [facility] [address] [id number] [address] [place] [address], [place] [address] Jul, [facility] [address] [id number] [address] [place] [address], [place] [address] Jul, [facility] [address] [id number] [address] [place] [address], [place] [address] Jul, [facility] [address] [id number] [address] [place] [address], [place] [address] Jul, [facility] [address] [id number] [address] [place] [address], [place] [address] May, [facility] [address] [id number] [address] [place] [address], [place] [address] May, [facility] [address] [id number] [address] [place] [address], [place] [address] May, [facility] [address] [id number] [address] [place] [address], [place] [address] Apr, [facility] [address] [id number] [address] [place] [address], [place] [address] Apr, [facility] [address] [id number] [address] [place] [address], [place] [address] Apr, [facility] [address] [id number] [address] [place] [address], [place] [address] Apr, [facility] [address] [id number] [address] [place] [address], [place] [address] Apr, [facility] [address] [id number] [address] [place] [address], [place] [address] Mar, [facility] [address] [id number] [address] [place] [address], [place] [address] Mar, [facility] [address] [id number] [address] [place] [address], [place] [address] Mar, [facility] [address] [id number] [address] [place] [address], [place] [address] Mar, [facility] [address] [id number] [address] [place] [address], [place] [address] Feb, [facility] [address] [id number] [address] [place] [address], [place] [address] Feb, [facility] [address] [id number] [address] [place] [address], [place] [address] Feb, [facility] [address] [id number] [address] [place] [address], [place] [address] Feb, [facility] [address] [id number] [address] [place] [address], [place] [address] Feb, [facility] [address] [id number] [address] [place] [address], [place] [address] Jan, [facility] [address] [id number] [address] [place] [address], [place] [address] Dec, [facility] [address] [id number] [address] [place] [address], [place] [address] Dec, [facility] [address] [id number] [address] [place] [address], [place] [address] Dec, [facility] [address] [id number] [address] [place] [address], [place] [address] Nov, [facility] [address] [id number] [address] [place] [address], [place] [address] Nov, [facility] [address] [id number] [address] [place] [address], [place] [address] Nov, [facility] [address] [id number] [address] [place] [address], [place] [address] Oct, [facility] [address] [id number] [address] [place] [address], [place] [address] Oct, [facility] [address] [id number] [address] [place] [address], [place] [address] Oct, [facility] [address] [id number] [address] [place] [address], [place] [address] Oct, [facility] [address] [id number] [address] [place] [address], [place] [address] September, [facility] [address] [id number] [address] [place] [address], [place] [address] September, [facility] [address] [id number] [address] [place] [address], [place] [address] 30 Aug, 2011 [facility] [address] [id number] [address] [place] [address], [place] [address] 23 Aug, 2011 [facility] [address] [id number] [address] [place] [address], [place] [address] Aug, [facility] [address] [id number] [address] [place] [address], [place] [address] Aug, [facility] [address] [id number] [address] [place] [address], [place] [address] Aug, [facility] [address] [id number] [address] [place] [address], [place] [address] Aug, [facility] [address] [id number] [address] [place] [address], [place] [address] Aug, [facility] [address] [id number] [address] [place] [address], [place] [address] Jul, [facility] [address] [id number] [address] [place] [address], [place] [address] Jul, [facility] [address] [id number] [address] [place] [address], [place] [address] Jul, [facility] [address] [id number] [address] [place] [address], [place] [address] May, [facility] [address] [id number] [address] [place] [address], [place] [address] May, [facility] [address] [id number] [address] [place] [address], [place] [address] May, [facility] [address] [id number] [address] [place] [address], [place] [address] Apr, [facility] [address] [id number] [address] [place] [address], [place] [address] Apr, [facility] [address] [id number] [address] [place] [address], [place] [address] Mar, [facility] [address] [id number] [address] [place] [address], [place] [address] Mar, [facility] [address] [id number] [address] [place] [address], [place] [address] Mar, [facility] [address] [id number] [address] [place] [address], [place] [address] Mar, [facility] [address] [id number] [address] [place] [address], [place] [address] Mar, [facility] [address] [facility] [place] [id number] [address] [place] [id number] Mar, [facility] [address] [facility] [place] [id number] [address] [place] [id number] Feb, [facility] [address] [facility] [place] [id number] [address] [place] [id number] Feb, [facility] [address] [facility] [place] [id number] [address] [place] [id number] Feb, IMMUNIZATIONS No Known Immunizations SOCIAL HISTORY [...]
--- OUTSIDE RECORDS SUMMARY | 2020-01-03 07:46 | XMS REPORT ---
Author Author Tra VALDOVINOS Organization [facility] Address [address] [place] [address] Care Team Providers Care Interventional Tech Name Role Phone MED VALDOVINOS Unavailable PROBLEMS Type Condition ICD9-CM Code SZA60-BB Code Onset Dates Condition S tatus SNOMED Code Problem Insulin long-term use Z79.4 Active 632012445 Problem Hypertension I10 Active 3750645 3 Problem Diabetes E11.9 Active 05237810 Problem Hypoxia R09.02 Active 019932053 Problem Anxiety F41.9 Active 81351331 Problem Port catheter in place Z95.828 Active 587292804 Problem Pressure ulcer of other site, stage 3 L89.893 Active 684688269 Problem COPD (chronic obstructive pulmonary disease) J44.9 Active 86714312 Problem Type 2 diabetes mellitus wit h diabetic peripheral angiopathy without gangrene E11.51 Active 887007665 Problem Back pain M54.9 Active 032193767 Problem PAD (peripheral artery disease) I73.9 Active 313034172 Problem Lumbar radiculopathy, chronic M54.16 Active 811608727 Problem Recurrent major depressive disorder, in full remission F33.42 Active 797565599 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 278887787 ALLERGIES No Information ENCOUNTERS Encounter Location Date Diagnosis [facility] [address] [facility] [id number] [address] [place] [phone] Dec, [facility] [address] [facility] [id number] [address] [place] [phone] Nov, Anxiety F41.9 [facility] [address] [facility] [id number] [address] [place] [phone] Nov, [facility] [address] [facility] [id number] [address] [place] [phone] Nov, Back pain M54.9 [facility] [address] [id number] [address] [place] [phone] Nov, [facility] [address] [id number] [address] [place] [phone] Nov, Back pain M54.9 [facility] [address] [id number] [address] [place] [phone] Nov, Anxiety F41.9 [facility] [address] [id number] [address] [place] [id number] Nov, [facility] [address] [id number] [address] [place] [phone] Oct, Back pain M54.9 [facility] [address] [id number] [address] [place] [phone] Oct, [facility] [address] [id number] [address] [place] [phone] Oct, [facility] [address] [id number] [address] [place] [phone] Oct, [facility] [address] [id number] [address] [place] [phone] September, Back pain M54.9 [facility] [address] [id number] [address] [place] [phone] September, [facility] [address] [id number] [address] [place] [phone] September, [facility] [address] [id number] [address] [place] [phone] September, [facility] [address] [id number] [address] [place] [phone] Aug, Back pain M54.9 [facility] [address] [id number] [address] [place] [phone] Aug, Anxiety F41.9 [facility] [address] [id number] [address] [place] [phone] Aug, [facility] [address] [facility] [id number] [address] [place] [phone] Aug, Pressure ulcer of other site , stage 3 L89.893 and COPD (chronic obstructive pulmonary disease) J44.9 [facility] [address] [id number] [address] [place] [phone] Aug, History of smoking Z87.891 [facility] [address] [id number] [address] [place] [id number] Jul, Type 2 diabetes mellitus wit h diabetic peripheral angiopathy without gangrene E11.51 [facility] [address] [facility] [id number] [address] [place] [phone] Jul, Back pain M54.9 [place] [address] [place] [id number] [address] [place] [phone] Jul, Anxiety F41.9 [facility] [address] [facility] [id number] [address] [place] [phone] Jul, [facility] [address] [id number] [address] [place] [phone] Jul, Back pain M54.9 [place] [address] [facility] [id number] [address] [place] [id number] Jul, Back pain M54.9 [place] [address] [facility] [id number] [address] [place] [phone] Jul, Lumbar radiculopathy, chroni c M54.16 ; Hypertension I10 and Type 2 diabetes mellitus with diabetic peripheral angiopathy without gangrene E11.51 [facility] [address] [facility] [id number] [address] [place] [phone] Jul, Back pain M54.9 [facility] [address] [facility] [id number] [address] [place] [phone] Jul, Back pain M54.9 and Anxiety F41.9 [place] [address] [id number] [address] [place] [phone] Jul, [facility] [address] [id number] [address] [place] [phone] May, Back pain M54.9 and Anxiety F41.9 [facility] [address] [id number] [address] [place] [phone] May, [facility] [address] [id number] [address] [place] [phone] Apr, Radiculopathy of lumbar rhiannon on M54.16 ; Back pain M54.9 and Anxiety F41.9 [facility] [address] [id number] [address] [place] [phone] Apr, Diabetes E11.9 ; Muscle spas m M62.838 and Lumbar radiculopathy, chronic M54.16 [facility] [address] [id number] [address] [place] [phone] Apr, [facility] [address] [id number] [address] [place] [phone] Apr, [facility] [address] [id number] [address] [place] [phone] Mar, Back pain M54.9 and Anxiety F41.9 [facility] [address] [id number] [address] [place] [phone] Mar, [facility] [address] [facility] [id number] [address] [place] [phone] Mar, [facility] [address] [id number] [address] [place] [phone] Mar, [facility] [address] [id number] [address] [place] [phone] Mar, Encounter for immunization Z 23 [facility] [address] [id number] [address] [place] [phone] Feb, Back pain M54.9 and Anxiety F41.9 [facility] [address] [id number] [address] [place] [phone] 04 Feb, 2018 Back pain M54.9 and Anxiety F41.9 [facility] [address] [id number] [address] [place] [phone] Jan, Back pain M54.9 and Anxiety F41.9 [facility] [address] [id number] [address] [place] [phone] Jan, [facility] [address] [id number] [address] [place] [phone] Dec, [facility] [address] [id number] [address] [place] [id number] Dec, Back pain M54.9 and Anxiety F41.9 [facility] [address] [id number] [address] [place] [phone] Dec, Diabetes E11.9 ; Type 2 diab etes mellitus with diabetic peripheral angiopathy without gangrene E11.51 ; Lumbar radiculopathy, chronic M54.16 ; COPD (chronic obstructive pulmonary disease) J44.9 and Anxiety F41.9 [facility] [address] [id number] [address] [place] [phone] Dec, Back pain M54.9 and Anxiety F41.9 [facility] [address] [id number] [address] [place] [phone] Nov, Back pain M54.9 and Anxiety F41.9 [facility] [address] [id number] [address] [place] [phone] Oct, [facility] [address] [id number] [address] [place] [phone] Oct, Back pain M54.9 and Anxiety F41.9 [facility] [address] [id number] [address] [place] [phone] September, Anxiety F41.9 and Back pain M54.9 [facility] [address] [facility] [id number] [address] [place] [phone] September, Diabetes E11.9 ; Hypertensio n I10 ; COPD (chronic obstructive pulmonary disease) J44.9 and Lumbar radiculopathy, chronic M54.16 [facility] [address] [id number] [address] [place] [phone] September, Anxiety F41.9 [place] [address] [id number] [address] [place] [phone] Aug, [place] [address] [id number] [address] [place] [phone] Aug, [place] [address] [facility] [id number] [address] [place] [phone] Aug, Anxiety F41.9 and Back pain M54.9 [place] [address] [facility] [id number] [address] [place] [phone] Aug, Medicare annual wellness vis it, initial [...] 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 [place] [address] [id number] [address] [place] [phone] Jul, Back pain M54.9 [place] [address] [facility] [id number] [address] [place] [phone] Jul, [place] [address] [facility] [id number] [address] [place] [phone] Jul, Anxiety F41.9 and Back pain M54.9 [place] [address] [facility] [id number] [address] [place] [phone] Jul, Diabetes E11.9 [facility] [address] [id number] [address] [place] [phone] May, [facility] [address] [id number] [address] [place] [phone] May, Diabetes E11.9 ; Anxiety F41 .9 ; Back pain M54.9 and COPD (chronic obstructive pulmonary disease) J44.9 [facility] [address] [id number] [address] [place] [phone] May, Back pain M54.9 [facility] [address] [id number] [address] [place] [phone] May, [facility] [address] [id number] [address] [place] [phone] Apr, Back pain M54.9 [facility] [address] [id number] [address] [place] [phone] Mar, Back pain M54.9 [facility] [address] [id number] [address] [place] [phone] Mar, [facility] [address] [id number] [address] [place] [phone] 16 Mar, 2017 [facility] [address] [facility] [id number] [address] [place] [phone] 14 Mar, 2017 Radiculopathy of lumbar rhiannon on M54.16 [facility] [address] [id number] [address] [place] [phone] 13 Mar, 2017 [facility] [address] [facility] [id number] [address] [place] [phone] 07 Mar, 2017 Encounter for immunization Z 23 and Lumbar radiculopathy, chronic M54.16 [facility] [address] [id number] [address] [place] [id number] Mar, Back pain M54.9 and Anxiety F41.9 [facility] [address] [id number] [address] [place] [phone] Feb, Acute bilateral low back boy n with left-sided sciatica M54.42 and Acute bilateral low back pain with right-sided sciatica M54.41 [facility] [address] [id number] [address] [place] [phone] Feb, [facility] [address] [id number] [address] [place] [phone] Feb, Back pain M54.9 [facility] [address] [id number] [address] [place] [phone] 05 Jan, 2017 Back pain M54.9 and Anxiety F41.9 [facility] [address] [id number] [address] [place] [phone] 05 Jan, 2017 Diabetes E11.9 [facility] [address] [facility] [id number] [address] [place] [phone] Dec, Diabetes E11.9 ; Back pain M 54.9 ; Anxiety F41.9 and Insulin long- term use Z79.4 [facility] [address] [id number] [address] [place] [phone] Dec, Anxiety F41.9 [facility] [address] [id number] [address] [place] [phone] Dec, Back pain M54.9 [facility] [address] [id number] [address] [place] [phone] Nov, Back pain M54.9 [facility] [address] [id number] [address] [place] [phone] Oct, Back pain M54.9 and Anxiety F41.9 [facility] [address] [id number] [address] [place] [phone] September, Back pain M54.9 [facility] [address] [id number] [address] [place] [id number] September, Back pain M54.9 and Anxiety F41.9 [facility] [address] [id number] [address] [place] [phone] Aug, Diabetes E11.9 ; Anxiety F41 .9 ; Back pain M54.9 and PAD (peripheral artery disease) I73.9 [facility] [address] [id number] [address] [place] [phone] 19 Aug, 2016 Anxiety F41.9 [facility] [address] [id number] [address] [place] [phone] Aug, Back pain M54.9 [facility] [address] [id number] [address] [place] [phone] Jul, Back pain M54.9 [facility] [address] [id number] [address] [place] [phone] Jul, Back pain M54.9 [facility] [address] [id number] [address] [place] [phone] Jul, Back pain M54.9 [facility] [address] [id number] [address] [place] [id number] 16 Jul, 2016 Dorsalgia M54.9 [facility] [address] [id number] [address] [place] [phone] 14 Jul, 2016 [facility] [address] [id number] [address] [place] [phone] May, Back pain M54.9 [facility] [address] [id number] [address] [place] [phone] May, Diabetes E11.9 ; Anxiety F41 .9 ; Port catheter in place Z95.828 ; Encounter for immunization Z23 and Insulin long-term use Z79.4 [facility] [address] [id number] [address] [place] [phone] Apr, Back pain M54.9 [facility] [address] [id number] [address] [place] [phone] Apr, Back pain M54.9 [facility] [address] [id number] [address] [place] [phone] Apr, [facility] [address] [id number] [address] [place] [id number] Apr, Back pain M54.9 [facility] [address] [id number] [address] [place] [phone] Mar, COPD (chronic obstructive pu lmonary disease) J44.9 [facility] [address] [id number] [address] [place] [phone] Feb, [facility] [address] [id number] [address] [place] [phone] 30 Jan, 2016 [facility] [address] [id number] [address] [place] [phone] Jan, [facility] [address] [id number] [address] [place] [phone] Jan, [facility] [address] [id number] [address] [place] [phone] Jan, [facility] [address] [id number] [address] [place] [phone] Dec, Diabetes E11.9 ; Hypoxia R09 .02 and Back pain M54.9 [facility] [address] [id number] [address] [place] [phone] Dec, [facility] [address] [id number] [address] [place] [phone] Nov, [facility] [address] [id number] [address] [place] [phone] Oct, Anxiety F41.9 [facility] [address] [id number] [address] [place] [phone] Oct, Back pain M54.9 [facility] [address] [id number] [address] [place] [phone] September, Back pain M54.9 [facility] [address] [facility] [id number] [address] [place] [phone] September, Diabetes E11.9 [facility] [address] [facility] [id number] [address] [place] [phone] September, [facility] [address] [facility] [id number] [address] [place] [phone] September, Diabetes E11.9 ; Insulin sarai g-term use Z79.4 and Back pain M54.9 [facility] [address] [facility] [id number] [address] [place] [phone] Aug, Back pain M54.9 [facility] [address] [facility] [id number] [address] [place] [id number] Aug, Back pain M54.9 ; Anxiety F4 1.9 and Arthropathy, unspecified M12.9 [place] [address] [facility] [id number] [address] [place] [phone] Jul, Back pain M54.9 [facility] [address] [facility] [id number] [address] [place] [id number] Jul, Anxiety F41.9 [facility] [address] [facility] [id number] [address] [place] [phone] Jul, Back pain M54.9 [facility] [address] [facility] [id number] [address] [place] [phone] Jul, [facility] [address] [facility] [id number] [address] [place] [phone] Jul, [facility] [address] [facility] [id number] [address] [place] [phone] May, Back pain M54.9 ; Diabetes E 11.9 ; Insulin long-term use Z79.4 ; COPD (chronic obstructive pulmonary disease) J44.9 and Hypertension I10 [facility] [address] [facility] [id number] [address] [place] [phone] May, Chronic pain G89.29 [facility] [address] [id number] [address] [place] [phone] Apr, [facility] [address] [id number] [address] [place] [phone] Apr, [facility] [address] [id number] [address] [place] [phone] Mar, [facility] [address] [id number] [address] [place] [phone] Mar, Encounter for immunization Z 23 and Diabetes E11.9 [facility] [address] [id number] [address] [place] [phone] Feb, [facility] [address] [id number] [address] [place] [phone] Feb, [facility] [address] [id number] [address] [place] [phone] Jan, [facility] [address] [id number] [address] [place] [phone] Jan, [facility] [address] [id number] [address] [place] [phone] Dec, [facility] [address] [id number] [address] [place] [phone] Dec, [facility] [address] [id number] [address] [place] [id number] Dec, Unspecified arthropathy, sit e unspecified 716.90 and Diabetes mellitus type 2, uncontrolled 250.02 [facility] [address] [id number] [address] [place] [phone] Dec, [facility] [address] [id number] [address] [place] [phone] Nov, [facility] [address] [id number] [address] [place] [phone] Oct, [facility] [address] [id number] [address] [place] [phone] September, [facility] [address] [id number] [facility] [place] [address] September, [facility] [address] [id number] [address] [place] [address], [place] [phone] September, [facility] [address] [id number] [address] [place] [address], [place] [address] September, [facility] [address] [id number] [address] [place] [address], [place] [address] 14 Aug, 2014 [facility] [address] [id number] [address] [place] [address], [place] [address] 13 Aug, 2014 [facility] [address] [id number] [address] [place] [address], [place] [phone] 18 Jul, 2014 [facility] [address] [id number] [address] [place] [address], [place] [address] 18 Jul, 2014 [facility] [address] [id number] [address] [place] [address], [place] [address] 16 Jul, 2014 [facility] [address] [id number] [address] [place] [address], [place] [address] 16 Jul, 2014 [facility] [address] [id number] [address] [place] [address], [place] [address] 16 Jul, 2014 [facility] [address] [id number] [address] [place] [address], [place] [address] 16 Jul, 2014 [facility] [address] [id number] [address] [place] [address], [place] [address] 16 Jul, 2014 [facility] [address] [id number] [address] [place] [address], [place] [address] 16 Jul, 2014 [facility] [address] [id number] [address] [place] [address], [place] [address] 16 Jul, 2014 [facility] [address] [id number] [address] [place] [address], [place] [address] 13 Jul, 2014 [facility] [address] [id number] [address] [place] [address], [place] [address] 13 Jul, 2014 [facility] [address] [id number] [address] [place] [address], [place] [address] 09 Jul, 2014 [facility] [address] [id number] [address] [place] [address], [place] [address] 09 Jul, 2014 [facility] [address] [id number] [address] [place] [address], [place] [address] 17 Jul, 2014 [facility] [address] [id number] [address] [place] [address], [place] [address] 17 Jul, 2014 [facility] [address] [id number] [address] [place] [address], [place] [address] 16 Jul, 2014 [facility] [address] [id number] [address] [place] [address], [place] [address] 16 Jul, 2014 [facility] [address] [id number] [address] [place] [address], [place] [address] 16 Jul, 2014 [facility] [address] [id number] [address] [place] [address], [place] [address] 16 Jul, 2014 [facility] [address] [id number] [address] [place] [address], [place] [address] 16 Jul, 2014 [facility] [address] [id number] [address] [place] [address], [place] [address] 16 Jul, 2014 [facility] [address] [id number] [address] [place] [id number] 16 Jul, 2014 [facility] [address] [id number] [address] [place] [address], [place] [address] 16 Jul, 2014 [facility] [address] [id number] [address] [place] [address], [place] [address] 16 Jul, 2014 [facility] [address] [id number] [address] [place] [id number] 16 Jul, 2014 [facility] [address] [id number] [address] [place] [id number] Jul, [facility] [address] [id number] [address] [place] [address], [place] [address] Jul, [facility] [address] [id number] [address] [place] [address], [place] [address] Jul, [facility] [address] [id number] [address] [place] [address], [place] [address] Jul, [facility] [address] [id number] [address] [place] [address], [place] [address] May, [facility] [address] [id number] [address] [place] [address], [place] [address] May, [facility] [address] [id number] [address] [place] [address], [place] [address] May, [facility] [address] [id number] [address] [place] [address], [place] [address] May, [facility] [address] [id number] [address] [place] [address], [place] [address] May, [facility] [address] [id number] [address] [place] [address], [place] [address] May, [facility] [address] [id number] [address] [place] [address], [place] [address] May, [facility] [address] [id number] [address] [place] [address], [place] [address] May, [facility] [address] [id number] [address] [place] [address], [place] [address] May, [facility] [address] [id number] [address] [place] [address], [place] [address] May, [facility] [address] [id number] [address] [place] [address], [place] [address] Apr, [facility] [address] [id number] [address] [place] [address], [place] [address] Apr, [facility] [address] [id number] [address] [place] [address], [place] [address] Apr, [facility] [address] [id number] [address] [place] [address], [place] [address] Apr, [facility] [address] [id number] [address] [place] [address], [place] [address] Apr, [facility] [address] [id number] [address] [place] [address], [place] [address] Apr, [facility] [address] [id number] [address] [place] [address], [place] [address] Mar, [facility] [address] [id number] [address] [place] [address], [place] [address] Mar, [facility] [address] [id number] [address] [place] [address], [place] [address] Mar, [facility] [address] [id number] [address] [place] [address], [place] [address] Mar, [facility] [address] [id number] [address] [place] [address], [place] [address] Mar, [facility] [address] [id number] [address] [place] [address], [place] [address] Mar, [facility] [address] [id number] [address] [place] [address], [place] [address] Mar, [facility] [address] [id number] [address] [place] [address], [place] [address] Mar, [facility] [address] [id number] [address] [place] [address], [place] [address] Mar, [facility] [address] [id number] [address] [place] [address], [place] [address] Mar, [facility] [address] [id number] [address] [place] [address], [place] [address] Mar, [facility] [address] [id number] [address] [place] [address], [place] [address] Feb, [facility] [address] [id number] [address] [place] [address], [place] [address] 30 Feb, 2014 [facility] [address] [id number] [address] [place] [address], [place] [address] Feb, [facility] [address] [id number] [address] [place] [address], [place] [address] Feb, [facility] [address] [id number] [address] [place] [address], [place] [address] Feb, [facility] [address] [id number] [address] [place] [address], [place] [address] Feb, [facility] [address] [id number] [address] [place] [address], [place] [address] Feb, [facility] [address] [id number] [address] [place] [address], [place] [address] Feb, [facility] [address] [id number] [address] [place] [address], [place] [address] Feb, [facility] [address] [id number] [address] [place] [address], [place] [address] Feb, [facility] [address] [id number] [address] [place] [address], [place] [address] 22 Jan, 2014 [facility] [address] [id number] [address] [place] [address], [place] [address] 22 Jan, 2013 [facility] [address] [id number] [address] [place] [address] 16 Jan, 2013 [facility] [address] [id number] [address] [place] [address], [place] [address] 16 Jan, 2013 [facility] [address] [id number] [address] [place] [address], [place] [address] 12 Jan, 2013 [facility] [address] [id number] [address] [place] [address], [place] [address] 04 Jan, 2013 [facility] [address] [id number] [address] [place] [address], [place] [address] Jan, [facility] [address] [id number] [address] [place] [address], [place] [address] Dec, [facility] [address] [id number] [address] [place] [address], [place] [address] Dec, [facility] [address] [id number] [address] [place] [address], [place] [address] Dec, [facility] [address] [id number] [address] [place] [address], [place] [address] Dec, [facility] [address] [id number] [address] [place] [address], [place] [address] Dec, [facility] [address] [id number] [address] [place] [address], [place] [address] Dec, [facility] [address] [id number] [address] [place] [address], [place] [address] Dec, [facility] [address] [id number] [address] [place] [address], [place] [address] Dec, [facility] [address] [id number] [address] [place] [address], [place] [address] Oct, [facility] [address] [id number] [address] [place] [address], [place] [address] Oct, [facility] [address] [id number] [address] [place] [address], [place] [address] September, [facility] [address] [id number] [address] [place] [address], [place] [address] September, [facility] [address] [id number] [address] [place] [address], [place] [address] September, [facility] [address] [id number] [address] [place] [address], [place] [address] September, [facility] [address] [id number] [address] [place] [address], [place] [address] September, [facility] [address] [id number] [address] [place] [address], [place] [address] September, [facility] [address] [id number] [address] [place] [address], [place] [address] September, [facility] [address] [id number] [address] [place] [address], [place] [address] Aug, [facility] [address] [id number] [address] [place] [address], [place] [address] Aug, [facility] [address] [id number] [address] [place] [address], [place] [address] Jul, [facility] [address] [id number] [address] [place] [address], [place] [address] Jul, [facility] [address] [id number] [address] [place] [address], [place] [address] Jul, [facility] [address] [id number] [address] [place] [address], [place] [address] Jul, [facility] [address] [id number] [address] [place] [address], [place] [address] Jul, [facility] [address] [id number] [address] [place] [address], [place] [address] Jul, [facility] [address] [id number] [address] [place] [address], [place] [address] Jul, [facility] [address] [id number] [address] [place] [address], [place] [address] Jul, [facility] [address] [id number] [address] [place] [address], [place] [address] May, [facility] [address] [id number] [address] [place] [address], [place] [address] May, [facility] [address] [id number] [address] [place] [address], [place] [address] May, [facility] [address] [id number] [address] [place] [address], [place] [address] 14 May, 2013 [facility] [address] [id number] [address] [place] [address], [place] [address] 18 Apr, 2013 [facility] [address] [id number] [address] [place] [address], [place] [address] 20 Mar, 2013 [facility] [address] [id number] [address] [place] [address], [place] [address] 20 Mar, 2013 [facility] [address] [id number] [address] [place] [address], [place] [address] Mar, [facility] [address] [id number] [address] [place] [address], [place] [address] Mar, [facility] [address] [id number] [address] [place] [address], [place] [address] 18 Mar, 2013 [facility] [address] [id number] [address] [place] [address], [place] [address] 18 Mar, 2013 [facility] [address] [id number] [address] [place] [address], [place] [address] 18 Mar, 2013 [facility] [address] [id number] [address] [place] [address], [place] [address] 18 Mar, 2013 [facility] [address] [id number] [address] [place] [address], [place] [address] Mar, [facility] [address] [id number] [address] [place] [address], [place] [address] Mar, [facility] [address] [id number] [address] [place] [address] Mar, [facility] [address] [id number] [address] [place] [address], [place] [address] 04 Mar, 2013 [facility] [address] [id number] [address] [place] [address], [place] [address] 15 Feb, 2013 [facility] [address] [id number] [address] [place] [address], [place] [address] Feb, [facility] [address] [id number] [address] [place] [address], [place] [address] Feb, [facility] [address] [id number] [address] [place] [address], [place] [address] Feb, [facility] [address] [id number] [address] [place] [address], [place] [address] Feb, [facility] [address] [id number] [address] [place] [address], [place] [address] Jan, [facility] [address] [id number] [address] [place] [address], [place] [address] Dec, [facility] [address] [id number] [address] [place] [address], [place] [address] Dec, [facility] [address] [id number] [address] [place] [address], [place] [address] Dec, [facility] [address] [id number] [address] [place] [address], [place] [address] Nov, [facility] [address] [id number] [address] [place] [address], [place] [address] Nov, [facility] [address] [id number] [address] [place] [address], [place] [address] Nov, [facility] [address] [id number] [address] [place] [address], [place] [address] Oct, [facility] [address] [id number] [address] [place] [address], [place] [address] Oct, [facility] [address] [id number] [address] [place] [address], [place] [address] Oct, [facility] [address] [id number] [address] [place] [address], [place] [address] September, [facility] [address] [id number] [address] [place] [address], [place] [address] September, [facility] [address] [id number] [address] [place] [address], [place] [address] September, [facility] [address] [id number] [address] [place] [address], [place] [address] September, [facility] [address] [id number] [address] [place] [address], [place] [address] September, [facility] [address] [id number] [address] [place] [address], [place] [address] Aug, [facility] [address] [id number] [address] [place] [address], [place] [address] Aug, [facility] [address] [id number] [address] [place] [address], [place] [address] Aug, [facility] [address] [id number] [address] [place] [address], [place] [address] Jul, [facility] [address] [id number] [address] [place] [address], [place] [address] Jul, [facility] [address] [id number] [address] [place] [address], [place] [address] Jul, [facility] [address] [id number] [address] [place] [address], [place] [address] Jul, [facility] [address] [id number] [address] [place] [address], [place] [address] Jul, [facility] [address] [id number] [address] [place] [address], [place] [address] Jul, [facility] [address] [id number] [address] [place] [address], [place] [address] Jul, [facility] [address] [id number] [address] [place] [address], [place] [address] May, [facility] [address] [id number] [address] [place] [address], [place] [address] May, [facility] [address] [id number] [address] [place] [address], [place] [address] May, [facility] [address] [id number] [address] [place] [address], [place] [address] Apr, [facility] [address] [id number] [address] [place] [address], [place] [address] Apr, [facility] [address] [id number] [address] [place] [address], [place] [address] Apr, [facility] [address] [id number] [address] [place] [address], [place] [address] Apr, [facility] [address] [id number] [address] [place] [address], [place] [address] Apr, [facility] [address] [id number] [address] [place] [address], [place] [address] Mar, [facility] [address] [id number] [address] [place] [address], [place] [address] Mar, [facility] [address] [id number] [address] [place] [address], [place] [address] Mar, [facility] [address] [id number] [address] [place] [address], [place] [address] Mar, [facility] [address] [id number] [address] [place] [address], [place] [address] Feb, [facility] [address] [id number] [address] [place] [address], [place] [address] Feb, [facility] [address] [id number] [address] [place] [address], [place] [address] Feb, [facility] [address] [id number] [address] [place] [address], [place] [address] Feb, [facility] [address] [id number] [address] [place] [address], [place] [address] Feb, [facility] [address] [id number] [address] [place] [address], [place] [address] Jan, [facility] [address] [id number] [address] [place] [address], [place] [address] Dec, [facility] [address] [id number] [address] [place] [address], [place] [address] Dec, [facility] [address] [id number] [address] [place] [address], [place] [address] Dec, [facility] [address] [id number] [address] [place] [address], [place] [address] Nov, [facility] [address] [id number] [address] [place] [address], [place] [address] Nov, [facility] [address] [id number] [address] [place] [address], [place] [address] Nov, [facility] [address] [id number] [address] [place] [address], [place] [address] Oct, [facility] [address] [id number] [address] [place] [address], [place] [address] Oct, [facility] [address] [id number] [address] [place] [address], [place] [address] Oct, [facility] [address] [id number] [address] [place] [address], [place] [address] Oct, [facility] [address] [id number] [address] [place] [address], [place] [address] September, [facility] [address] [id number] [address] [place] [address], [place] [address] September, [facility] [address] [id number] [address] [place] [address], [place] [address] 30 Aug, 2011 [facility] [address] [id number] [address] [place] [address], [place] [address] 23 Aug, 2011 [facility] [address] [id number] [address] [place] [address], [place] [address] 10 Aug, 2011 [facility] [address] [id number] [address] [place] [address], [place] [address] Aug, [facility] [address] [id number] [address] [place] [address], [place] [address] Aug, [facility] [address] [id number] [address] [place] [address], [place] [address] Aug, [facility] [address] [id number] [address] [place] [address], [place] [address] Aug, [facility] [address] [id number] [address] [place] [address], [place] [address] Jul, [facility] [address] [id number] [address] [place] [address], [place] [address] Jul, [facility] [address] [id number] [address] [place] [address], [place] [address] Jul, [facility] [address] [id number] [address] [place] [address], [place] [address] May, [facility] [address] [id number] [address] [place] [address], [place] [address] May, [facility] [address] [id number] [address] [place] [address], [place] [address] May, [facility] [address] [id number] [address] [place] [address], [place] [address] Apr, [facility] [address] [id number] [address] [place] [address], [place] [address] Apr, [facility] [address] [id number] [address] [place] [address], [place] [address] Mar, [facility] [address] [id number] [address] [place] [address], [place] [address] Mar, [facility] [address] [id number] [address] [place] [address], [place] [address] Mar, [facility] [address] [id number] [address] [place] [address], [place] [address] Mar, [facility] [address] [id number] [address] [place] [address], [place] [address] Mar, [facility] [address] [facility] [id number] [address] [place] [phone] Mar, [facility] [address] [facility] [id number] [address] [place] [phone] Feb, [facility] [address] [facility] [id number] [address] [place] [phone] Feb, [facility] [address] [facility] [id number] [address] [place] [phone] Feb, IMMUNIZATIONS No Known Immunizations SOCIAL HISTORY Never Assessed REASON FOR VISIT PLAN OF CARE VITAL SIGNS MEDICATIONS Unknown Medications RESULTS No Results PROCEDURES Procedure Date Ordered Result Body Site IRRIG DRUG DELIVERY DEVICE Jun 01, 2014 INSTRUCTIONS MEDICATIONS ADMINISTERED No Known Medications [...]
--- OUTSIDE RECORDS SUMMARY | 2020-01-03 07:46 | XMS REPORT ---
Author Author Tra SHARIF Organization [facility] Address [address] [place] [address] Care Team Providers Care [employer] Functional Analyst Name Role Phone YUDITH SHARIF Unavailable PROBLEMS Type Condition ICD9-CM Code MOE65-BT Code Onset Dates Condition S tatus SNOMED Code Problem Insulin long-term use Z79.4 Active 087183446 Problem Hypertension I10 Active 1449650 3 Problem Diabetes E11.9 Active 76376701 Problem Hypoxia R09.02 Active 512878606 Problem Anxiety F41.9 Active 88316402 Problem Port catheter in place Z95.828 Active 786471348 Problem Pressure ulcer of other site, stage 3 L89.893 Active 730238365 Problem COPD (chronic obstructive pulmonary disease) J44.9 Active 99292301 Problem Type 2 diabetes mellitus wit h diabetic peripheral angiopathy without gangrene E11.51 Active 677965183 Problem Back pain M54.9 Active 210568794 Problem PAD (peripheral artery disease) I73.9 Active 568652889 Problem Lumbar radiculopathy, chronic M54.16 Active 610941977 Problem Recurrent major depressive disorder, in full remission F33.42 Active 045006077 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 [address] [facility] [id number] [address] [place] [phone] Dec, [facility] [address] [facility] [id number] [address] [place] [phone] Nov, Anxiety F41.9 [facility] [address] [facility] [id number] [address] [place] [phone] Nov, [facility] [address] [facility] [id number] [address] [place] [phone] Nov, Back pain M54.9 [facility] [address] [id number] [address] [place] [phone] Nov, [facility] [address] [id number] [address] [place] [phone] Nov, Back pain M54.9 [facility] [address] [id number] [address] [place] [phone] Nov, Anxiety F41.9 [facility] [address] [id number] [address] [place] [phone] Nov, [facility] [address] [id number] [address] [place] [phone] Oct, Back pain M54.9 [facility] [address] [id number] [address] [place] [phone] Oct, [facility] [address] [id number] [address] [place] [phone] Oct, [facility] [address] [id number] [address] [place] [phone] Oct, [facility] [address] [id number] [address] [place] [phone] September, Back pain M54.9 [facility] [address] [id number] [address] [place] [phone] September, [facility] [address] [id number] [address] [place] [phone] September, [facility] [address] [id number] [address] [place] [phone] September, [facility] [address] [id number] [address] [place] [phone] Aug, Back pain M54.9 [facility] [address] [id number] [address] [place] [phone] Aug, Anxiety F41.9 [facility] [address] [id number] [address] [place] [phone] Aug, [facility] [address] [facility] [id number] [address] [place] [phone] Aug, Pressure ulcer of other site , stage 3 L89.893 and COPD (chronic obstructive pulmonary disease) J44.9 [facility] [address] [facility] [id number] [address] [place] [phone] Aug, History of smoking Z87.891 [facility] [address] [id number] [address] [place] [phone] Jul, Type 2 diabetes mellitus wit h diabetic peripheral angiopathy without gangrene E11.51 [place] [address] [facility] [id number] [address] [place] [phone] Jul, Back pain M54.9 [place] [address] [facility] [id number] [address] [place] [phone] Jul, Anxiety F41.9 [place] [address] [facility] [id number] [address] [place] [id number] Jul, [place] [address] [facility] [id number] [address] [place] [phone] Jul, Back pain M54.9 [place] [address] [facility] [id number] [address] [place] [phone] Jul, Back pain M54.9 [place] [address] [facility] [id number] [address] [place] [phone] Jul, Lumbar radiculopathy, chroni c M54.16 ; Hypertension I10 and Type 2 diabetes mellitus with diabetic peripheral angiopathy without gangrene E11.51 [place] [address] [facility] [id number] [address] [place] [phone] Jul, Back pain M54.9 [place] [address] [facility] [id number] [address] [place] [phone] Jul, Back pain M54.9 and Anxiety F41.9 [place] [address] [id number] [address] [place] [phone] Jul, [facility] [address] [id number] [address] [place] [phone] May, Back pain M54.9 and Anxiety F41.9 [facility] [address] [facility] [id number] [address] [place] [phone] May, [facility] [address] [facility] [id number] [address] [place] [phone] Apr, Radiculopathy of lumbar rhiannon on M54.16 ; Back pain M54.9 and Anxiety F41.9 [facility] [address] [facility] [id number] [address] [place] [phone] Apr, Diabetes E11.9 ; Muscle spas m M62.838 and Lumbar radiculopathy, chronic M54.16 [facility] [address] [facility] [id number] [address] [place] [phone] Apr, [facility] [address] [id number] [address] [place] [phone] Apr, [facility] [address] [facility] [id number] [address] [place] [phone] Mar, Back pain M54.9 and Anxiety F41.9 [facility] [address] [facility] [id number] [address] [place] [phone] Mar, [facility] [address] [facility] [id number] [address] [place] [phone] Mar, [facility] [address] [id number] [address] [place] [phone] Mar, [facility] [address] [facility] [id number] [address] [place] [phone] Mar, Encounter for immunization Z 23 [facility] [address] [facility] [id number] [address] [place] [phone] Feb, Back pain M54.9 and Anxiety F41.9 [facility] [address] [id number] [address] [place] [phone] Feb, Back pain M54.9 and Anxiety F41.9 [facility] [address] [id number] [address] [place] [phone] Jan, Back pain M54.9 and Anxiety F41.9 [facility] [address] [id number] [address] [place] [phone] Jan, [facility] [address] [id number] [address] [place] [phone] Dec, [facility] [address] [id number] [address] [place] [phone] Dec, Back pain M54.9 and Anxiety F41.9 [facility] [address] [id number] [address] [place] [phone] Dec, Diabetes E11.9 ; Type 2 diab etes mellitus with diabetic peripheral angiopathy without gangrene E11.51 ; Lumbar radiculopathy, chronic M54.16 ; COPD (chronic obstructive pulmonary disease) J44.9 and Anxiety F41.9 [facility] [address] [id number] [address] [place] [phone] Dec, Back pain M54.9 and Anxiety F41.9 [facility] [address] [id number] [address] [place] [phone] Nov, Back pain M54.9 and Anxiety F41.9 [facility] [address] [id number] [address] [place] [phone] Oct, [facility] [address] [id number] [address] [place] [phone] Oct, Back pain M54.9 and Anxiety F41.9 [facility] [address] [id number] [address] [place] [phone] September, Anxiety F41.9 and Back pain M54.9 [facility] [address] [id number] [address] [place] [phone] September, Diabetes E11.9 ; Hypertensio n I10 ; COPD (chronic obstructive pulmonary disease) J44.9 and Lumbar radiculopathy, chronic M54.16 [place] [address] [facility] [id number] [address] [place] [phone] September, Anxiety F41.9 [place] [address] [id number] [address] [place] [phone] Aug, [place] [address] [id number] [address] [place] [phone] Aug, [place] [address] [facility] [id number] [address] [place] [phone] Aug, Anxiety F41.9 and Back pain M54.9 [place] [address] [facility] [id number] [address] [place] [phone] Aug, Medicare annual wellness vis it, initial [...] and [facility] current use of insulin Z79.4 [place] [address] [facility] [id number] [address] [place] [phone] Jul, Back pain M54.9 [place] [address] [facility] [id number] [address] [place] [phone] Jul, [place] [address] [facility] [id number] [address] [place] [phone] Jul, Anxiety F41.9 and Back pain M54.9 [place] [address] [facility] [id number] [address] [place] [phone] Jul, Diabetes E11.9 [facility] [address] [id number] [address] [place] [phone] May, [facility] [address] [id number] [address] [place] [phone] May, Diabetes E11.9 ; Anxiety F41 .9 ; Back pain M54.9 and COPD (chronic obstructive pulmonary disease) J44.9 [facility] [address] [id number] [address] [place] [phone] May, Back pain M54.9 [facility] [address] [id number] [address] [place] [phone] May, [facility] [address] [facility] [id number] [address] [place] [phone] Apr, Back pain M54.9 [facility] [address] [id number] [address] [place] [phone] Mar, Back pain M54.9 [facility] [address] [id number] [address] [place] [phone] Mar, [facility] [address] [facility] [id number] [address] [place] [phone] 16 Mar, 2017 [facility] [address] [facility] [id number] [address] [place] [id number] 14 Mar, 2017 Radiculopathy of lumbar rhiannon on M54.16 [facility] [address] [id number] [address] [place] [phone] 13 Mar, 2017 [facility] [address] [facility] [id number] [address] [place] [phone] 07 Mar, 2017 Encounter for immunization Z 23 and Lumbar radiculopathy, chronic M54.16 [facility] [address] [id number] [address] [place] [id number] 01 Mar, 2017 Back pain M54.9 and Anxiety F41.9 [facility] [address] [id number] [address] [place] [phone] 10 Feb, 2017 Acute bilateral low back boy n with left-sided sciatica M54.42 and Acute bilateral low back pain with right-sided sciatica M54.41 [facility] [address] [id number] [address] [place] [phone] Feb, [facility] [address] [id number] [address] [place] [phone] Feb, Back pain M54.9 [facility] [address] [id number] [address] [place] [phone] 05 Jan, 2017 Back pain M54.9 and Anxiety F41.9 [place] [address] [id number] [address] [place] [phone] 05 Jan, 2017 Diabetes E11.9 [place] [address] [id number] [address] [place] [phone] Dec, Diabetes E11.9 ; Back pain M 54.9 ; Anxiety F41.9 and Insulin long- term use Z79.4 [place] [address] [id number] [address] [place] [phone] Dec, Anxiety F41.9 [place] [address] [facility] [id number] [address] [place] [phone] Dec, Back pain M54.9 [place] [address] [id number] [address] [place] [phone] Nov, Back pain M54.9 [facility] [address] [id number] [address] [place] [phone] Oct, Back pain M54.9 and Anxiety F41.9 [place] [address] [id number] [address] [place] [phone] September, Back pain M54.9 [place] [address] [id number] [address] [place] [phone] September, Back pain M54.9 and Anxiety F41.9 [place] [address] [id number] [address] [place] [phone] Aug, Diabetes E11.9 ; Anxiety F41 .9 ; Back pain M54.9 and PAD (peripheral artery disease) I73.9 [facility] [address] [id number] [address] [place] [phone] 19 Aug, 2016 Anxiety F41.9 [facility] [address] [id number] [address] [place] [phone] 14 Aug, 2016 Back pain M54.9 [facility] [address] [id number] [address] [place] [phone] Jul, Back pain M54.9 [facility] [address] [id number] [address] [place] [phone] Jul, Back pain M54.9 [facility] [address] [id number] [address] [place] [phone] Jul, Back pain M54.9 [facility] [address] [id number] [address] [place] [phone] 16 Jul, 2016 Dorsalgia M54.9 [facility] [address] [id number] [address] [place] [phone] 14 Jul, 2016 [facility] [address] [id number] [address] [place] [phone] May, Back pain M54.9 [facility] [address] [facility] [id number] [address] [place] [phone] May, Diabetes E11.9 ; Anxiety F41 .9 ; Port catheter in place Z95.828 ; Encounter for immunization Z23 and Insulin long-term use Z79.4 [facility] [address] [id number] [address] [place] [phone] Apr, Back pain M54.9 [facility] [address] [id number] [address] [place] [phone] Apr, Back pain M54.9 [facility] [address] [id number] [address] [place] [phone] Apr, [facility] [address] [id number] [address] [place] [phone] Apr, Back pain M54.9 [facility] [address] [id number] [address] [place] [phone] Mar, COPD (chronic obstructive pu lmonary disease) J44.9 [facility] [address] [id number] [address] [place] [phone] Feb, [facility] [address] [id number] [address] [place] [phone] 30 Jan, 2016 [facility] [address] [id number] [address] [place] [phone] Jan, [facility] [address] [id number] [address] [place] [phone] Jan, [facility] [address] [id number] [address] [place] [phone] Jan, [facility] [address] [id number] [address] [place] [phone] Dec, Diabetes E11.9 ; Hypoxia R09 .02 and Back pain M54.9 [facility] [address] [id number] [address] [place] [phone] Dec, [facility] [address] [id number] [address] [place] [phone] Nov, [facility] [address] [id number] [address] [place] [phone] Oct, Anxiety F41.9 [facility] [address] [id number] [address] [place] [phone] Oct, Back pain M54.9 [facility] [address] [id number] [address] [place] [phone] September, Back pain M54.9 [facility] [address] [facility] [id number] [address] [place] [phone] September, Diabetes E11.9 [facility] [address] [id number] [address] [place] [phone] September, [facility] [address] [facility] [id number] [address] [place] [phone] September, Diabetes E11.9 ; Insulin sarai g-term use Z79.4 and Back pain M54.9 [facility] [address] [id number] [address] [place] [phone] Aug, Back pain M54.9 [facility] [address] [facility] [id number] [address] [place] [phone] Aug, Back pain M54.9 ; Anxiety F4 1.9 and Arthropathy, unspecified M12.9 [facility] [address] [facility] [id number] [address] [place] [id number] Jul, Back pain M54.9 [facility] [address] [facility] [id number] [address] [place] [id number] Jul, Anxiety F41.9 [facility] [address] [facility] [id number] [address] [place] [phone] Jul, Back pain M54.9 [facility] [address] [facility] [id number] [address] [place] [phone] Jul, [facility] [address] [facility] [id number] [address] [place] [phone] Jul, [facility] [address] [facility] [id number] [address] [place] [phone] May, Back pain M54.9 ; Diabetes E 11.9 ; Insulin long-term use Z79.4 ; COPD (chronic obstructive pulmonary disease) J44.9 and Hypertension I10 [facility] [address] [facility] [id number] [address] [place] [id number] 19 [place], 2016 Chronic pain G89.29 [facility] [address] [id number] [address] [place] [phone] Apr, [facility] [address] [id number] [address] [place] [phone] Apr, [facility] [address] [id number] [address] [place] [phone] Mar, [facility] [address] [id number] [address] [place] [id number] Mar, Encounter for immunization Z 23 and Diabetes E11.9 [facility] [address] [id number] [address] [place] [phone] Feb, [facility] [address] [id number] [address] [place] [phone] Feb, [facility] [address] [id number] [address] [place] [phone] Jan, [facility] [address] [id number] [address] [place] [phone] Jan, [facility] [address] [id number] [address] [place] [phone] Dec, [facility] [address] [id number] [address] [place] [id number] Dec, [facility] [address] [id number] [address] [place] [id number] Dec, Unspecified arthropathy, sit e unspecified 716.90 and Diabetes mellitus type 2, uncontrolled 250.02 [facility] [address] [id number] [address] [place] [phone] Dec, [facility] [address] [id number] [address] [place] [phone] Nov, [facility] [address] [facility] [id number] [address] [place] [id number] Oct, [facility] [address] [id number] [address] [place] [address] [place] [id number] September, [facility] [address] [id number] [address] [place] [address], [place] [id number] September, [facility] [address] [id number] [address] [place] [address], [place] [id number] September, [facility] [address] [id number] [address] [place] [address], [place] [id number] September, [facility] [address] [id number] [address] [place] [address], [place] [id number] 14 Aug, 2014 [facility] [address] [id number] [address] [place] [address], [place] [id number] 13 Aug, 2014 [facility] [address] [id number] [address] [place] [address], [place] [id number] 18 Jul, 2014 [facility] [address] [id number] [address] [place] [address], [place] [id number] 18 Jul, 2014 [facility] [address] [id number] [address] [place] [address], [place] [address] 16 Jul, 2014 [facility] [address] [id number] [address] [place] [address], [place] [address] 16 Jul, 2014 [facility] [address] [id number] [address] [place] [address], [place] [address] 16 Jul, 2014 [facility] [address] [id number] [address] [place] [address], [place] [address] 16 Jul, 2014 [facility] [address] [id number] [address] [place] [address], [place] [address] 16 Jul, 2014 [facility] [address] [id number] [address] [place] [address], [place] [address] 16 Jul, 2014 [facility] [address] [id number] [address] [place] [address], [place] [address] 16 Jul, 2014 [facility] [address] [id number] [address] [place] [address], [place] [address] 13 Jul, 2014 [facility] [address] [id number] [address] [place] [address], [place] [address] 13 Jul, 2014 [facility] [address] [id number] [address] [place] [address], [place] [address] 09 Jul, 2014 [facility] [address] [id number] [address] [place] [address], [place] [address] 09 Jul, 2014 [facility] [address] [id number] [address] [place] [address], [place] [address] 17 Jul, 2014 [facility] [address] [id number] [address] [place] [address], [place] [address] 17 Jul, 2014 [facility] [address] [id number] [address] [place] [address], [place] [address] 16 Jul, 2014 [facility] [address] [id number] [address] [place] [address], [place] [address] 16 Jul, 2014 [facility] [address] [id number] [address] [place] [address], [place] [address] 16 Jul, 2014 [facility] [address] [id number] [address] [place] [address], [place] [address] 16 Jul, 2014 [facility] [address] [id number] [address] [place] [address], [place] [address] 16 Jul, 2014 [facility] [address] [id number] [address] [place] [address], [place] [address] 16 Jul, 2014 [facility] [address] [id number] [address] [place] [address], [place] [address] 16 Jul, 2014 [facility] [address] [id number] [address] [place] [address], [place] [address] 16 Jul, 2014 [facility] [address] [id number] [address] [place] [address], [place] [address] 16 Jul, 2014 [facility] [address] [id number] [address] [place] [address], [place] [address] 16 Jul, 2014 [facility] [address] [id number] [address] [place] [address], [place] [address] 16 Jul, 2014 [facility] [address] [id number] [address] [place] [address], [place] [address] Jul, [facility] [address] [id number] [address] [place] [address], [place] [address] Jul, [facility] [address] [id number] [address] [place] [address], [place] [address] Jul, [facility] [address] [id number] [address] [place] [address], [place] [address] May, [facility] [address] [id number] [address] [place] [address], [place] [address] May, [facility] [address] [id number] [address] [place] [address], [place] [address] May, [facility] [address] [id number] [address] [place] [address], [place] [address] May, [facility] [address] [id number] [address] [place] [address], [place] [address] May, [facility] [address] [id number] [address] [place] [address], [place] [address] May, [facility] [address] [id number] [address] [place] [address], [place] [address] May, [facility] [address] [id number] [address] [place] [address], [place] [address] May, [facility] [address] [id number] [address] [place] [address], [place] [address] May, [facility] [address] [id number] [address] [place] [address], [place] [address] May, [facility] [address] [id number] [address] [place] [address], [place] [address] Apr, [facility] [address] [id number] [address] [place] [address], [place] [address] Apr, [facility] [address] [id number] [address] [place] [address], [place] [address] Apr, [facility] [address] [id number] [address] [place] [address], [place] [address] Apr, [facility] [address] [id number] [address] [place] [address], [place] [address] Apr, [facility] [address] [id number] [address] [place] [address], [place] [address] Apr, [facility] [address] [id number] [address] [place] [address], [place] [address] Mar, [facility] [address] [id number] [address] [place] [address], [place] [address] Mar, [facility] [address] [id number] [address] [place] [address], [place] [address] Mar, [facility] [address] [id number] [address] [place] [address], [place] [address] Mar, [facility] [address] [id number] [address] [place] [address], [place] [address] Mar, [facility] [address] [id number] [address] [place] [address], [place] [address] Mar, [facility] [address] [id number] [address] [place] [address], [place] [address] Mar, [facility] [address] [id number] [address] [place] [address], [place] [address] Mar, [facility] [address] [id number] [address] [place] [address], [place] [address] Mar, [facility] [address] [id number] [address] [place] [address], [place] [address] Mar, [facility] [address] [id number] [address] [place] [address], [place] [address] Mar, [facility] [address] [id number] [address] [place] [address] [place] [address] 30 Feb, 2014 [facility] [address] [id number] [address] [place] [address], [place] [address] 30 Feb, 2014 [facility] [address] [id number] [address] [place] [address], [place] [address] 15 Feb, 2014 [facility] [address] [id number] [address] [place] [address], [place] [address] 15 Feb, 2014 [facility] [address] [id number] [address] [place] [address], [place] [address] Feb, [facility] [address] [id number] [address] [place] [address], [place] [address] Feb, [facility] [address] [id number] [address] [place] [address], [place] [address] Feb, [facility] [address] [id number] [address] [place] [address], [place] [address] Feb, [facility] [address] [id number] [address] [place] [address], [place] [address] Feb, [facility] [address] [id number] [address] [place] [address], [place] [address] Feb, [facility] [address] [id number] [address] [place] [address], [place] [address] 22 Jan, 2013 [facility] [address] [id number] [address] [place] [address], [place] [address] 22 Jan, 2013 [facility] [address] [id number] [address] [place] [address], [place] [address] 16 Sep, 2013 [facility] [address] [id number] [address] [place] [address], [place] [address] 16 Sep, 2013 [facility] [address] [id number] [address] [place] [address], [place] [address] 12 Sep, 2013 [facility] [address] [id number] [address] [place] [address], [place] [address] 04 Sep, 2013 [facility] [address] [id number] [address] [place] [address], [place] [address] Jan, [facility] [address] [id number] [address] [place] [address], [place] [address] Dec, [facility] [address] [id number] [address] [place] [address], [place] [address] Dec, [facility] [address] [id number] [address] [place] [address], [place] [address] Dec, [facility] [address] [id number] [address] [place] [address], [place] [address] Dec, [facility] [address] [id number] [address] [place] [address], [place] [address] Dec, [facility] [address] [id number] [address] [place] [address], [place] [address] Dec, [facility] [address] [id number] [address] [place] [address], [place] [address] Dec, [facility] [address] [id number] [address] [place] [address], [place] [address] Dec, [facility] [address] [id number] [address] [place] [address], [place] [address] Oct, [facility] [address] [id number] [address] [place] [address], [place] [address] Oct, [facility] [address] [id number] [address] [place] [address], [place] [address] September, [facility] [address] [id number] [address] [place] [address], [place] [address] September, [facility] [address] [id number] [address] [place] [address], [place] [address] September, [facility] [address] [id number] [address] [place] [address], [place] [address] September, [facility] [address] [id number] [address] [place] [address], [place] [address] September, [facility] [address] [id number] [address] [place] [address], [place] [address] September, [facility] [address] [id number] [address] [place] [address], [place] [address] September, [facility] [address] [id number] [address] [place] [address], [place] [address] Aug, [facility] [address] [id number] [address] [place] [address], [place] [address] Aug, [facility] [address] [id number] [address] [place] [address], [place] [address] Jul, [facility] [address] [id number] [address] [place] [address], [place] [address] 24 Jul, 2013 [facility] [address] [id number] [address] [place] [address], [place] [address] 17 Jul, 2013 [facility] [address] [id number] [address] [place] [address], [place] [address] 17 Jul, 2013 [facility] [address] [id number] [address] [place] [address], [place] [address] 14 Jul, 2013 [facility] [address] [id number] [address] [place] [address], [place] [address] 14 Jul, 2013 [facility] [address] [id number] [address] [place] [address], [place] [address] Jul, [facility] [address] [id number] [address] [place] [address], [place] [address] Jul, [facility] [address] [id number] [address] [place] [address], [place] [address] May, [facility] [address] [id number] [address] [place] [address], [place] [address] May, [facility] [address] [id number] [address] [place] [address], [place] [address] May, [facility] [address] [id number] [address] [place] [address], [place] [address] 14 May, 2013 [facility] [address] [id number] [address] [place] [address], [place] [address] 18 Apr, 2013 [facility] [address] [id number] [address] [place] [address], [place] [address] 20 Mar, 2013 [facility] [address] [id number] [address] [place] [address], [place] [address] 20 Mar, 2013 [facility] [address] [id number] [address] [place] [address], [place] [address] Mar, [facility] [address] [id number] [address] [place] [address], [place] [address] Mar, [facility] [address] [id number] [address] [place] [address], [place] [address] 18 Mar, 2013 [facility] [address] [id number] [address] [place] [address], [place] [address] 18 Mar, 2013 [facility] [address] [id number] [address] [place] [address], [place] [address] 18 Mar, 2013 [facility] [address] [id number] [address] [place] [address], [place] [address] 18 Mar, 2013 [facility] [address] [id number] [address] [place] [address], [place] [address] Mar, [facility] [address] [id number] [address] [place] [address], [place] [address] 11 Mar, 2013 [facility] [address] [id number] [address] [place] [address], [place] [address] 04 Mar, 2013 [facility] [address] [id number] [address] [place] [address], [place] [address] 04 Mar, 2013 [facility] [address] [id number] [address] [place] [address] 15 Feb, 2013 [facility] [address] [id number] [address] [place] [address] Feb, [facility] [address] [id number] [address] [place] [address], [place] [address] Feb, [facility] [address] [id number] [address] [place] [address], [place] [address] Feb, [facility] [address] [id number] [address] [place] [address], [place] [address] Feb, [facility] [address] [id number] [address] [place] [address], [place] [address] Jan, [facility] [address] [id number] [address] [place] [address], [place] [address] Dec, [facility] [address] [id number] [address] [place] [address], [place] [address] Dec, [facility] [address] [id number] [address] [place] [address], [place] [address] Dec, [facility] [address] [id number] [address] [place] [address], [place] [address] Nov, [facility] [address] [id number] [address] [place] [address], [place] [address] Nov, [facility] [address] [id number] [address] [place] [address], [place] [address] Nov, [facility] [address] [id number] [address] [place] [address], [place] [address] Oct, [facility] [address] [id number] [address] [place] [address], [place] [address] Oct, [facility] [address] [id number] [address] [place] [address], [place] [address] Oct, [facility] [address] [id number] [address] [place] [address], [place] [address] September, [facility] [address] [id number] [address] [place] [address], [place] [address] September, [facility] [address] [id number] [address] [place] [address], [place] [address] 14 Sep, 2012 [facility] [address] [id number] [address] [place] [address], [place] [address] September, [facility] [address] [id number] [address] [place] [address], [place] [address] September, [facility] [address] [id number] [address] [place] [address], [place] [address] Aug, [facility] [address] [id number] [address] [place] [address], [place] [address] Aug, [facility] [address] [id number] [address] [place] [address], [place] [address] Aug, [facility] [address] [id number] [address] [place] [address], [place] [address] Jul, [facility] [address] [id number] [address] [place] [address], [place] [address] Jul, [facility] [address] [id number] [address] [place] [address], [place] [address] Jul, [facility] [address] [id number] [address] [place] [address], [place] [address] Jul, [facility] [address] [id number] [address] [place] [address], [place] [address] Jul, [facility] [address] [id number] [address] [place] [address], [place] [address] Jul, [facility] [address] [id number] [address] [place] [address], [place] [address] Jul, [facility] [address] [id number] [address] [place] [address], [place] [address] May, [facility] [address] [id number] [address] [place] [address], [place] [address] May, [facility] [address] [id number] [address] [place] [address], [place] [address] May, [facility] [address] [id number] [address] [place] [address], [place] [address] Apr, [facility] [address] [id number] [address] [place] [address], [place] [address] Apr, [facility] [address] [id number] [address] [place] [address], [place] [address] Apr, [facility] [address] [id number] [address] [place] [address], [place] [address] Apr, [facility] [address] [id number] [address] [place] [address], [place] [address] Apr, [facility] [address] [id number] [address] [place] [address], [place] [address] Mar, [facility] [address] [id number] [address] [place] [address], [place] [address] Mar, [facility] [address] [id number] [address] [place] [id number] Mar, [facility] [address] [id number] [address] [place] [address], [place] [address] Mar, [facility] [address] [id number] [address] [place] [id number] Feb, [facility] [address] [id number] [address] [place] [id number] Feb, [facility] [address] [id number] [address] [place] [id number] Feb, [facility] [address] [id number] [address] [place] [address], [place] [address] Feb, [facility] [address] [id number] [address] [place] [id number] Feb, [facility] [address] [id number] [address] [place] [id number] Jan, [facility] [address] [id number] [address] [place] [id number] Dec, [facility] [address] [id number] [address] [place] [address], [place] [address] Dec, [facility] [address] [id number] [address] [place] [address], [place] [address] Dec, [facility] [address] [id number] [address] [place] [address], [place] [address] Nov, [facility] [address] [id number] [address] [place] [address], [place] [address] Nov, [facility] [address] [id number] [address] [place] [address], [place] [address] Nov, [facility] [address] [id number] [address] [place] [address], [place] [address] Oct, [facility] [address] [id number] [address] [place] [address], [place] [address] Oct, [facility] [address] [id number] [address] [place] [address], [place] [address] Oct, [facility] [address] [id number] [address] [place] [address], [place] [address] Oct, [facility] [address] [id number] [address] [place] [address], [place] [address] September, [facility] [address] [id number] [address] [place] [address], [place] [address] September, [facility] [address] [id number] [address] [place] [address], [place] [address] 30 Aug, 2011 [facility] [address] [id number] [address] [place] [address], [place] [address] 23 Aug, 2011 [facility] [address] [id number] [address] [place] [address], [place] [address] 10 Aug, 2011 [facility] [address] [id number] [address] [place] [address], [place] [address] 09 Aug, 2011 [facility] [address] [id number] [address] [place] [address], [place] [address] Aug, [facility] [address] [id number] [address] [place] [address], [place] [address] Aug, [facility] [address] [id number] [address] [place] [address], [place] [address] Aug, [facility] [address] [id number] [address] [place] [address], [place] [address] Jul, [facility] [address] [id number] [address] [place] [address], [place] [address] Jul, [facility] [address] [id number] [address] [place] [address], [place] [address] Jul, [facility] [address] [id number] [address] [place] [address], [place] [address] May, [facility] [address] [id number] [address] [place] [address], [place] [address] May, [facility] [address] [id number] [address] [place] [address], [place] [address] May, [facility] [address] [id number] [address] [place] [address], [place] [address] Apr, [facility] [address] [id number] [address] [place] [address], [place] [address] Apr, [facility] [address] [id number] [address] [place] [address], [place] [address] Mar, [facility] [address] [id number] [address] [place] [address], [place] [address] Mar, [facility] [address] [id number] [address] [place] [address], [place] [address] Mar, [facility] [address] [id number] [address] [place] [address], [place] [address] Mar, [facility] [address] [id number] [address] [place] [address] [address] Mar, [facility] [address] [facility] [id number] [address] [place] [address] Mar, [facility] [address] [facility] [id number] [address] [place] [id number] Feb, [facility] [address] [facility] [id number] [address] [place] [id number] Feb, [facility] [address] [facility] [id number] [address] [place] [id number] Feb, IMMUNIZATIONS No Known Immunizations SOCIAL HISTORY Never Assessed REASON FOR VISIT PLAN OF CARE VITAL SIGNS Height 72 in 2014-06-02 Weight 273.2 lbs 2014-06-02 Temperature 98.7 degrees Fahrenheit 2014-06-02 Heart Rate 88 bpm 2014-06-02 Respiratory Rate 24 2014-06-02 Blood pressure systolic 170 mmHg 2014-06-02 Blood pressure diastolic 76 mmHg 2014-06-02 MEDICATIONS Unknown Medications RESULTS No Results PROCEDURES Procedure Date Ordered Result Body Site INFLUENZA ASSAY W/OPTIC Jun 02, 2014 INSTRUCTIONS MEDICATIONS ADMINISTERED No Known Medications [...]
--- OUTSIDE RECORDS SUMMARY | 2020-01-03 07:47 | XMS REPORT ---
Author Author Tra SILVERIO Organization [facility] Address [address] [place] [address] Care Team Providers Care Typing Section Chief Name Role Phone FERNY SILVERIO Unavailable PROBLEMS Type Condition ICD9-CM Code KYV02-BO Code Onset Dates Condition S tatus SNOMED Code Problem Insulin long-term use Z79.4 Active 408137225 Problem Hypertension I10 Active 4158595 3 Problem Diabetes E11.9 Active 40157058 Problem Hypoxia R09.02 Active 272929704 Problem Anxiety F41.9 Active 62894651 Problem Port catheter in place Z95.828 Active 794622090 Problem Pressure ulcer of other site, stage 3 L89.893 Active 368457758 Problem COPD (chronic obstructive pulmonary disease) J44.9 Active 15258877 Problem Type 2 diabetes mellitus wit h diabetic peripheral angiopathy without gangrene E11.51 Active 858003117 Problem Back pain M54.9 Active 173700078 Problem PAD (peripheral artery disease) I73.9 Active 108821327 Problem Lumbar radiculopathy, chronic M54.16 Active 700539539 Problem Recurrent major depressive disorder, in full remission F33.42 Active 139940392 Problem custodial current use of insulin Z79.4 Active [id number] ALLERGIES No Information ENCOUNTERS Encounter Location Date Diagnosis [facility] [address] [facility] [id number] [address] [place] [phone] Dec, [facility] [address] [facility] [id number] [address] [place] [phone] Nov, [facility] [address] [facility] [id number] [address] [place] [phone] Nov, Back pain M54.9 [facility] [address] [facility] [id number] [address] [place] [phone] Nov, Anxiety F41.9 [facility] [address] [id number] [address] [place] [phone] Nov, [facility] [address] [id number] [address] [place] [phone] Oct, Back pain M54.9 [facility] [address] [id number] [address] [place] [id number] Oct, [facility] [address] [id number] [address] [place] [phone] Oct, [facility] [address] [id number] [address] [place] [phone] Oct, [facility] [address] [id number] [address] [place] [phone] September, Back pain M54.9 [facility] [address] [id number] [address] [place] [phone] September, [facility] [address] [id number] [address] [place] [phone] September, [facility] [address] [id number] [address] [place] [phone] September, [facility] [address] [id number] [address] [place] [phone] Aug, Back pain M54.9 [facility] [address] [id number] [address] [place] [phone] Aug, Anxiety F41.9 [facility] [address] [id number] [address] [place] [phone] Aug, [facility] [address] [id number] [address] [place] [id number] Aug, Pressure ulcer of other site , stage 3 L89.893 and COPD (chronic obstructive pulmonary disease) J44.9 [facility] [address] [id number] [address] [place] [id number] Aug, History of smoking Z87.891 [facility] [address] [id number] [address] [place] [phone] Jul, Type 2 diabetes mellitus wit h diabetic peripheral angiopathy without gangrene E11.51 [facility] [address] [id number] [address] [place] [id number] Jul, Back pain M54.9 [facility] [address] [id number] [address] [place] [phone] Jul, Anxiety F41.9 [facility] [address] [id number] [address] [place] [id number] Jul, [facility] [address] [id number] [address] [place] [phone] Jul, Back pain M54.9 [facility] [address] [id number] [address] [place] [phone] Jul, Back pain M54.9 [facility] [address] [id number] [address] [place] [phone] Jul, Lumbar radiculopathy, chroni c M54.16 ; Hypertension I10 and Type 2 diabetes mellitus with diabetic peripheral angiopathy without gangrene E11.51 [facility] [address] [id number] [address] [place] [id number] Jul, Back pain M54.9 [facility] [address] [id number] [address] [place] [phone] Jul, Back pain M54.9 and Anxiety F41.9 [facility] [address] [id number] [address] [place] [phone] Jul, [facility] [address] [id number] [address] [place] [phone] May, Back pain M54.9 and Anxiety F41.9 [facility] [address] [id number] [address] [place] [phone] May, [facility] [address] [id number] [address] [place] [phone] Apr, Radiculopathy of lumbar rhiannon on M54.16 ; Back pain M54.9 and Anxiety F41.9 [facility] [address] [id number] [address] [place] [id number] Apr, Diabetes E11.9 ; Muscle spas m M62.838 and Lumbar radiculopathy, chronic M54.16 [facility] [address] [id number] [address] [place] [phone] 17 Apr, 2018 [facility] [address] [id number] [address] [place] [phone] Apr, [facility] [address] [id number] [address] [place] [phone] Mar, Back pain M54.9 and Anxiety F41.9 [facility] [address] [id number] [address] [place] [phone] Mar, [facility] [address] [id number] [address] [place] [phone] Mar, [facility] [address] [id number] [address] [place] [phone] Mar, [facility] [address] [id number] [address] [place] [phone] Mar, Encounter for immunization Z 23 [facility] [address] [id number] [address] [place] [id number] Feb, Back pain M54.9 and Anxiety F41.9 [facility] [address] [id number] [address] [place] [phone] 04 Feb, 2018 Back pain M54.9 and Anxiety F41.9 [facility] [address] [id number] [address] [place] [id number] 06 Jan, 2018 Back pain M54.9 and Anxiety F41.9 [facility] [address] [id number] [address] [place] [phone] Jan, [facility] [address] [id number] [address] [place] [phone] Dec, [facility] [address] [facility] [id number] [address] [place] [phone] Dec, Back pain M54.9 and Anxiety F41.9 [facility] [address] [facility] [id number] [address] [place] [id number] Dec, Diabetes E11.9 ; Type 2 diab etes mellitus with diabetic peripheral angiopathy without gangrene E11.51 ; Lumbar radiculopathy, chronic M54.16 ; COPD (chronic obstructive pulmonary disease) J44.9 and Anxiety F41.9 [facility] [address] [facility] [id number] [address] [place] [phone] Dec, Back pain M54.9 and Anxiety F41.9 [place] [address] [facility] [id number] [address] [place] [phone] Nov, Back pain M54.9 and Anxiety F41.9 [facility] [address] [facility] [id number] [address] [place] [phone] Oct, [facility] [address] [facility] [id number] [address] [place] [phone] Oct, Back pain M54.9 and Anxiety F41.9 [facility] [address] [facility] [id number] [address] [place] [id number] September, Anxiety F41.9 and Back pain M54.9 [facility] [address] [facility] [id number] [address] [place] [phone] September, Diabetes E11.9 ; Hypertensio n I10 ; COPD (chronic obstructive pulmonary disease) J44.9 and Lumbar radiculopathy, chronic M54.16 [facility] [address] [facility] [id number] [address] [place] [id number] September, Anxiety F41.9 [facility] [address] [facility] [id number] [address] [place] [phone] Aug, [facility] [address] [facility] [id number] [address] [place] [phone] Aug, [facility] [address] [facility] [id number] [address] [place] [phone] Aug, Anxiety F41.9 and Back pain M54.9 [facility] [address] [facility] [id number] [address] [place] [phone] Aug, Medicare annual wellness vis it, initial [...] 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.4 [facility] [address] [facility] [id number] [address] [place] [phone] Jul, Back pain M54.9 [place] [id number] [facility] [id number] [address] [place] [phone] Jul, [facility] [address] [facility] [id number] [address] [place] [phone] Jul, Anxiety F41.9 and Back pain M54.9 [facility] [address] [facility] [id number] [address] [place] [phone] Jul, Diabetes E11.9 [facility] [address] [facility] [id number] [address] [place] [phone] May, [facility] [address] [facility] [id number] [address] [place] [phone] May, Diabetes E11.9 ; Anxiety F41 .9 ; Back pain M54.9 and COPD (chronic obstructive pulmonary disease) J44.9 [facility] [address] [id number] [address] [place] [phone] May, Back pain M54.9 [facility] [address] [id number] [address] [place] [id number] May, [facility] [address] [id number] [address] [place] [phone] Apr, Back pain M54.9 [facility] [address] [id number] [address] [place] [phone] Mar, Back pain M54.9 [facility] [address] [id number] [address] [place] [phone] Mar, [facility] [address] [id number] [address] [place] [id number] 16 Mar, 2017 [facility] [address] [id number] [address] [place] [phone] 14 Mar, 2017 Radiculopathy of lumbar rhiannon on M54.16 [facility] [address] [id number] [address] [place] [id number] 13 Mar, 2017 [facility] [address] [id number] [address] [place] [id number] 07 Mar, 2017 Encounter for immunization Z 23 and Lumbar radiculopathy, chronic M54.16 [facility] [address] [id number] [address] [place] [phone] Mar, Back pain M54.9 and Anxiety F41.9 [facility] [address] [id number] [address] [place] [id number] 10 Feb, 2017 Acute bilateral low back boy n with left-sided sciatica M54.42 and Acute bilateral low back pain with right-sided sciatica M54.41 [facility] [address] [id number] [address] [place] [phone] Feb, [facility] [address] [id number] [address] [place] [phone] Feb, Back pain M54.9 [facility] [address] [id number] [address] [place] [phone] 05 Jan, 2017 Back pain M54.9 and Anxiety F41.9 [facility] [address] [id number] [address] [place] [phone] 05 Jan, 2017 Diabetes E11.9 [facility] [address] [id number] [address] [place] [phone] Dec, Diabetes E11.9 ; Back pain M 54.9 ; Anxiety F41.9 and Insulin long- term use Z79.4 [facility] [address] [id number] [address] [place] [phone] Dec, Anxiety F41.9 [facility] [address] [id number] [address] [place] [id number] Dec, Back pain M54.9 [facility] [address] [id number] [address] [place] [phone] Nov, Back pain M54.9 [facility] [address] [id number] [address] [place] [id number] Oct, Back pain M54.9 and Anxiety F41.9 [facility] [address] [id number] [address] [place] [id number] September, Back pain M54.9 [facility] [address] [id number] [address] [place] [phone] September, Back pain M54.9 and Anxiety F41.9 [facility] [address] [id number] [address] [place] [phone] Aug, Diabetes E11.9 ; Anxiety F41 .9 ; Back pain M54.9 and PAD (peripheral artery disease) I73.9 [facility] [address] [id number] [address] [place] [phone] Aug, Anxiety F41.9 [facility] [address] [id number] [address] [place] [id number] Aug, Back pain M54.9 [facility] [address] [id number] [address] [place] [id number] Jul, Back pain M54.9 [facility] [address] [id number] [address] [place] [phone] Jul, Back pain M54.9 [facility] [address] [id number] [address] [place] [phone] Jul, Back pain M54.9 [facility] [address] [id number] [address] [place] [phone] Jul, Dorsalgia M54.9 [facility] [address] [id number] [address] [place] [phone] Jul, [facility] [address] [id number] [address] [place] [id number] May, Back pain M54.9 [facility] [address] [id number] [address] [place] [phone] May, Diabetes E11.9 ; Anxiety F41 .9 ; Port catheter in place Z95.828 ; Encounter for immunization Z23 and Insulin long-term use Z79.4 [facility] [address] [id number] [address] [place] [id number] Apr, Back pain M54.9 [facility] [address] [id number] [address] [place] [phone] Apr, Back pain M54.9 [facility] [address] [id number] [address] [place] [phone] Apr, [facility] [address] [id number] [address] [place] [phone] Apr, Back pain M54.9 [facility] [address] [id number] [address] [place] [id number] Mar, COPD (chronic obstructive pu lmonary disease) J44.9 [facility] [address] [id number] [address] [place] [phone] Feb, [facility] [address] [id number] [address] [place] [phone] 30 Jan, 2016 [facility] [address] [id number] [address] [place] [phone] 20 Jan, 2016 [facility] [address] [id number] [address] [place] [phone] 07 Jan, 2016 [facility] [address] [id number] [address] [place] [address] Jan, [facility] [address] [id number] [address] [place] [id number] Dec, Diabetes E11.9 ; Hypoxia R09 .02 and Back pain M54.9 [facility] [address] [id number] [address] [place] [phone] Dec, [facility] [address] [id number] [address] [place] [phone] Nov, [facility] [address] [id number] [address] [place] [phone] Oct, Anxiety F41.9 [facility] [address] [id number] [address] [place] [phone] Oct, Back pain M54.9 [facility] [address] [id number] [address] [place] [id number] September, Back pain M54.9 [facility] [address] [id number] [address] [place] [phone] September, Diabetes E11.9 [facility] [address] [id number] [address] [place] [phone] September, [facility] [address] [id number] [address] [place] [phone] September, Diabetes E11.9 ; Insulin sarai g-term use Z79.4 and Back pain M54.9 [facility] [address] [id number] [address] [place] [phone] Aug, Back pain M54.9 [facility] [address] [facility] [id number] [address] [place] [phone] Aug, Back pain M54.9 ; Anxiety F4 1.9 and Arthropathy, unspecified M12.9 [facility] [address] [id number] [address] [place] [phone] Jul, Back pain M54.9 [facility] [address] [facility] [id number] [address] [place] [phone] Jul, Anxiety F41.9 [facility] [address] [facility] [id number] [address] [place] [phone] Jul, Back pain M54.9 [facility] [address] [facility] [id number] [address] [place] [id number] Jul, [facility] [address] [facility] [id number] [address] [place] [phone] Jul, [facility] [address] [place] [id number] [address] [place] [phone] May, Back pain M54.9 ; Diabetes E 11.9 ; Insulin long-term use Z79.4 ; COPD (chronic obstructive pulmonary disease) J44.9 and Hypertension I10 [facility] [address] [facility] [id number] [address] [place] [phone] May, Chronic pain G89.29 [facility] [address] [facility] [id number] [address] [place] [phone] Apr, [facility] [address] [place] [id number] [address] [place] [phone] Apr, [facility] [address] [place] [id number] [address] [place] [phone] Mar, [facility] [address] [place] [id number] [address] [place] [id number] Mar, Encounter for immunization Z 23 and Diabetes E11.9 [facility] [address] [id number] [address] [place] [phone] Feb, [facility] [address] [id number] [address] [place] [phone] Feb, [facility] [address] [id number] [address] [place] [id number] Jan, [facility] [address] [id number] [address] [place] [phone] Jan, [facility] [address] [id number] [address] [place] [phone] Dec, [facility] [address] [facility] [id number] [address] [place] [phone] Dec, [facility] [address] [facility] [id number] [address] [place] [phone] Dec, Unspecified arthropathy, sit e unspecified 716.90 and Diabetes mellitus type 2, uncontrolled 250.02 [facility] [address] [id number] [address] [place] [phone] Dec, [facility] [address] [facility] [id number] [address] [place] [phone] Nov, [facility] [address] [id number] [address] [place] [id number] Oct, [facility] [address] [id number] [address] [place] [phone] September, [facility] [address] [id number] [address] [place] [phone] September, [facility] [address] [facility] [id number] [address] [place] [phone] September, [facility] [address] [facility] [id number] [address] [place] [phone] September, [facility] [address] [id number] [address] [place] [address], [place] [id number] 14 Aug, 2014 [facility] [address] [id number] [address] [place] [address], [place] [id number] 13 Aug, 2014 [facility] [address] [id number] [address] [place] [address], [place] [id number] 18 Jul, 2014 [facility] [address] [id number] [address] [place] [address], [place] [id number] 18 Jul, 2014 [facility] [address] [id number] [address] [place] [address], [place] [id number] 16 Jul, 2014 [facility] [address] [id number] [address] [place] [address], [place] [id number] 16 Jul, 2014 [facility] [address] [id number] [address] [place] [address], [place] [id number] 16 Jul, 2014 [facility] [address] [id number] [address] [place] [address], [place] [id number] 16 Jul, 2014 [facility] [address] [id number] [address] [place] [address], [place] [id number] 16 Jul, 2014 [facility] [address] [id number] [address] [place] [address], [place] [id number] 16 Jul, 2014 [facility] [address] [id number] [address] [place] [address], [place] [id number] 16 Jul, 2014 [facility] [address] [id number] [address] [place] [address], [place] [id number] 13 Jul, 2014 [facility] [address] [id number] [address] [place] [address], [place] [id number] 13 Jul, 2014 [facility] [address] [id number] [address] [place] [address], [place] [id number] 09 Jul, 2014 [facility] [address] [id number] [address] [place] [address], [place] [id number] 09 Jul, 2014 [facility] [address] [id number] [address] [place] [id number] 17 Jul, 2014 [facility] [address] [id number] [address] [place] [address], [place] [id number] 17 Jul, 2014 [facility] [address] [id number] [address] [place] [address], [place] [id number] 16 Jul, 2014 [facility] [address] [id number] [address] [place] [address], [place] [id number] 16 Jul, 2014 [facility] [address] [id number] [address] [place] [address], [place] [id number] 16 Jul, 2014 [facility] [address] [id number] [address] [place] [address], [place] [id number] 16 Jul, 2014 [facility] [address] [id number] [address] [place] [address], [place] [id number] 16 Jul, 2014 [facility] [address] [id number] [address] [place] [address], [place] [address] 16 Jul, 2014 [facility] [address] [id number] [address] [place] [address], [place] [address] 16 Jul, 2014 [facility] [address] [id number] [address] [place] [address], [place] [address] 16 Jul, 2014 [facility] [address] [id number] [address] [place] [address] 16 Jul, 2014 [facility] [address] [id number] [address] [place] [address], [place] [address] 16 Jul, 2014 [facility] [address] [id number] [address] [place] [address] 16 Jul, 2014 [facility] [address] [id number] [address] [place] [address], [place] [address] 16 Jul, 2014 [facility] [address] [id number] [address] [place] [address] 16 Jul, 2014 [facility] [address] [id number] [address] [place] [address] Jul, [facility] [address] [id number] [address] [place] [address], [place] [address] May, [facility] [address] [id number] [address] [place] [address], [place] [address] May, [facility] [address] [id number] [address] [place] [address], [place] [address] May, [facility] [address] [id number] [address] [place] [address], [place] [address] May, [facility] [address] [id number] [address] [place] [address], [place] [address] May, [facility] [address] [id number] [address] [place] [address], [place] [address] May, [facility] [address] [id number] [address] [place] [address], [place] [address] May, [facility] [address] [id number] [address] [place] [address], [place] [address] May, [facility] [address] [id number] [address] [place] [address], [place] [address] May, [facility] [address] [id number] [address] [place] [address], [place] [address] May, [facility] [address] [id number] [address] [place] [address], [place] [address] Apr, [facility] [address] [id number] [address] [place] [address], [place] [address] Apr, [facility] [address] [id number] [address] [place] [address], [place] [address] Apr, [facility] [address] [id number] [address] [place] [address], [place] [address] Apr, [facility] [address] [id number] [address] [place] [address], [place] [address] Apr, [facility] [address] [id number] [address] [place] [address], [place] [address] Apr, [facility] [address] [id number] [address] [place] [address], [place] [address] Mar, [facility] [address] [id number] [address] [place] [address], [place] [address] Mar, [facility] [address] [id number] [address] [place] [address], [place] [address] Mar, [facility] [address] [id number] [address] [place] [address], [place] [address] Mar, [facility] [address] [id number] [address] [place] [address], [place] [address] Mar, [facility] [address] [id number] [address] [place] [address], [place] [address] Mar, [facility] [address] [id number] [address] [place] [address], [place] [address] Mar, [facility] [address] [id number] [address] [place] [address], [place] [address] Mar, [facility] [address] [id number] [address] [place] [address], [place] [address] Mar, [facility] [address] [id number] [address] [place] [address], [place] [address] Mar, [facility] [address] [id number] [address] [place] [address], [place] [address] Mar, [facility] [address] [id number] [address] [place] [address], [place] [address] Feb, [facility] [address] [id number] [address] [place] [address], [place] [address] Feb, [facility] [address] [id number] [address] [place] [address], [place] [address] Feb, [facility] [address] [id number] [address] [place] [address], [place] [address] Feb, [facility] [address] [id number] [address] [place] [address], [place] [address] Feb, [facility] [address] [id number] [address] [place] [address], [place] [address] Feb, [facility] [address] [id number] [address] [place] [address], [place] [address] Feb, [facility] [address] [id number] [address] [place] [address], [place] [address] Feb, [facility] [address] [id number] [address] [place] [address], [place] [address] Feb, [facility] [address] [id number] [address] [place] [address], [place] [address] Feb, [facility] [address] [id number] [address] [place] [address], [place] [address] Jan, [facility] [address] [id number] [address] [place] [address], [place] [address] 22 Jan, 2014 [facility] [address] [id number] [address] [place] [address], [place] [address] 16 Jan, 2014 [facility] [address] [id number] [address] [place] [address], [place] [address] 16 Jan, 2014 [facility] [address] [id number] [address] [place] [address], [place] [address] 12 Jan, 2014 [facility] [address] [id number] [address] [place] [address], [place] [address] Jan, [facility] [address] [id number] [address] [place] [address], [place] [address] Jan, [facility] [address] [id number] [address] [place] [address], [place] [address] Dec, [facility] [address] [id number] [address] [place] [address], [place] [address] Dec, [facility] [address] [id number] [address] [place] [address], [place] [address] Dec, [facility] [address] [id number] [address] [place] [address], [place] [address] Dec, [facility] [address] [id number] [address] [place] [address], [place] [address] Dec, [facility] [address] [id number] [address] [place] [address], [place] [address] Dec, [facility] [address] [id number] [address] [place] [address], [place] [address] Dec, [facility] [address] [id number] [address] [place] [address], [place] [address] Dec, [facility] [address] [id number] [address] [place] [address], [place] [address] Oct, [facility] [address] [id number] [address] [place] [address], [place] [address] Oct, [facility] [address] [id number] [address] [place] [address], [place] [address] September, [facility] [address] [id number] [address] [place] [address], [place] [address] September, [facility] [address] [id number] [address] [place] [address], [place] [address] September, [facility] [address] [id number] [address] [place] [address], [place] [address] September, [facility] [address] [id number] [address] [place] [address], [place] [address] September, [facility] [address] [id number] [address] [place] [address], [place] [address] September, [facility] [address] [id number] [address] [place] [address], [place] [address] September, [facility] [address] [id number] [address] [place] [address], [place] [address] Aug, [facility] [address] [id number] [address] [place] [address], [place] [address] 15 Aug, 2013 [facility] [address] [id number] [address] [place] [address], [place] [address] Jul, [facility] [address] [id number] [address] [place] [address], [place] [address] Jul, [facility] [address] [id number] [address] [place] [address], [place] [address] Jul, [facility] [address] [id number] [address] [place] [address], [place] [address] Jul, [facility] [address] [id number] [address] [place] [address], [place] [address] Jul, [facility] [address] [id number] [address] [place] [address], [place] [address] Jul, [facility] [address] [id number] [address] [place] [address], [place] [address] Jul, [facility] [address] [id number] [address] [place] [address], [place] [address] Jul, [facility] [address] [id number] [address] [place] [address], [place] [address] May, [facility] [address] [id number] [address] [place] [address], [place] [address] May, [facility] [address] [id number] [address] [place] [address], [place] [address] May, [facility] [address] [id number] [address] [place] [address], [place] [address] May, [facility] [address] [id number] [address] [place] [address], [place] [address] Apr, [facility] [address] [id number] [address] [place] [address], [place] [address] Mar, [facility] [address] [id number] [address] [place] [address] Mar, [facility] [address] [id number] [address] [place] [address], [place] [address] Mar, [facility] [address] [id number] [address] [place] [address] Mar, [facility] [address] [id number] [address] [place] [address], [place] [address] Mar, [facility] [address] [id number] [address] [place] [address] Mar, [facility] [address] [id number] [address] [place] [address], [place] [address] Mar, [facility] [address] [id number] [address] [place] [address] 18 Mar, 2013 [facility] [address] [id number] [address] [place] [address] Mar, [facility] [address] [id number] [address] [place] [address] Mar, [facility] [address] [id number] [address] [place] [address] 04 Mar, 2013 [facility] [address] [id number] [address] [place] [address] 04 Mar, 2013 [facility] [address] [id number] [address] [place] [address] 15 Feb, 2013 [facility] [address] [id number] [address] [place] [address] 15 Feb, 2013 [facility] [address] [id number] [address] [place] [address] 11 Feb, 2013 [facility] [address] [id number] [address] [place] [address] 11 Feb, 2013 [facility] [address] [id number] [address] [place] [address] 07 Feb, 2013 [facility] [address] [id number] [address] [place] [address], [place] [address] Jan, [facility] [address] [id number] [address] [place] [address], [place] [address] Dec, [facility] [address] [id number] [address] [place] [address], [place] [address] Dec, [facility] [address] [id number] [address] [place] [address], [place] [address] Dec, [facility] [address] [id number] [address] [place] [address], [place] [address] Nov, [facility] [address] [id number] [address] [place] [address], [place] [address] Nov, [facility] [address] [id number] [address] [place] [address], [place] [address] Nov, [facility] [address] [id number] [address] [place] [address], [place] [address] Oct, [facility] [address] [id number] [address] [place] [address], [place] [address] Oct, [facility] [address] [id number] [address] [place] [address], [place] [address] Oct, [facility] [address] [id number] [address] [place] [address], [place] [address] September, [facility] [address] [id number] [address] [place] [address], [place] [address] September, [facility] [address] [id number] [address] [place] [address], [place] [address] September, [facility] [address] [id number] [address] [place] [address], [place] [address] September, [facility] [address] [id number] [address] [place] [address], [place] [address] September, [facility] [address] [id number] [address] [place] [address], [place] [address] Aug, [facility] [address] [id number] [address] [place] [address], [place] [address] Aug, [facility] [address] [id number] [address] [place] [address], [place] [address] Aug, [facility] [address] [id number] [address] [place] [address], [place] [address] Jul, [facility] [address] [id number] [address] [place] [address], [place] [address] Jul, [facility] [address] [id number] [address] [place] [address], [place] [address] Jul, [facility] [address] [id number] [address] [place] [address], [place] [address] Jul, [facility] [address] [id number] [address] [place] [address], [place] [address] Jul, [facility] [address] [id number] [address] [place] [address], [place] [address] Jul, [facility] [address] [id number] [address] [place] [address], [place] [address] Jul, [facility] [address] [id number] [address] [place] [address], [place] [address] May, [facility] [address] [id number] [address] [place] [address], [place] [address] May, [facility] [address] [id number] [address] [place] [address], [place] [address] May, [facility] [address] [id number] [address] [place] [address], [place] [address] Apr, [facility] [address] [id number] [address] [place] [address], [place] [address] Apr, [facility] [address] [id number] [address] [place] [address], [place] [address] Apr, [facility] [address] [id number] [address] [place] [address], [place] [address] Apr, [facility] [address] [id number] [address] [place] [address], [place] [address] Apr, [facility] [address] [id number] [address] [place] [address], [place] [address] Mar, [facility] [address] [id number] [address] [place] [address], [place] [address] Mar, [facility] [address] [id number] [address] [place] [address], [place] [address] Mar, [facility] [address] [id number] [address] [place] [address], [place] [address] Mar, [facility] [address] [id number] [address] [place] [address], [place] [address] Feb, [facility] [address] [id number] [address] [place] [address], [place] [address] Feb, [facility] [address] [id number] [address] [place] [address], [place] [address] Feb, [facility] [address] [id number] [address] [place] [address], [place] [address] Feb, [facility] [address] [id number] [address] [place] [address], [place] [address] Feb, [facility] [address] [id number] [address] [place] [address], [place] [address] Jan, [facility] [address] [id number] [address] [place] [address], [place] [address] Dec, [facility] [address] [id number] [address] [place] [address], [place] [address] Dec, [facility] [address] [id number] [address] [place] [address], [place] [address] Dec, [facility] [address] [id number] [address] [place] [address], [place] [address] Nov, [facility] [address] [id number] [address] [place] [address], [place] [address] Nov, [facility] [address] [id number] [address] [place] [address], [place] [address] Nov, [facility] [address] [id number] [address] [place] [address], [place] [address] Oct, [facility] [address] [id number] [address] [place] [address], [place] [address] Oct, [facility] [address] [id number] [address] [place] [address], [place] [address] Oct, [facility] [address] [id number] [address] [place] [address], [place] [address] Oct, [facility] [address] [id number] [address] [place] [address], [place] [address] September, [facility] [address] [id number] [address] [place] [address], [place] [address] September, [facility] [address] [id number] [address] [place] [address], [place] [address] Aug, [facility] [address] [id number] [address] [place] [address], [place] [address] Aug, [facility] [address] [id number] [address] [place] [address], [place] [address] Aug, [facility] [address] [id number] [address] [place] [address], [place] [address] Aug, [facility] [address] [id number] [address] [place] [address], [place] [address] Aug, [facility] [address] [id number] [address] [place] [address], [place] [address] Aug, [facility] [address] [id number] [address] [place] [address], [place] [address] Aug, [facility] [address] [id number] [address] [place] [address], [place] [address] Jul, [facility] [address] [id number] [address] [place] [address], [place] [address] Jul, [facility] [address] [id number] [address] [place] [address], [place] [address] Jul, [facility] [address] [id number] [address] [place] [address], [place] [address] May, [facility] [address] [id number] [address] [place] [address], [place] [address] May, [facility] [address] [id number] [address] [place] [address], [place] [address] May, [facility] [address] [id number] [address] [place] [address], [place] [address] Apr, [facility] [address] [id number] [address] [place] [address], [place] [address] Apr, [facility] [address] [id number] [address] [place] [address], [place] [address] Mar, [facility] [address] [id number] [address] [place] [address], [place] [address] Mar, [facility] [address] [id number] [address] [place] [address], [place] [address] Mar, [facility] [address] [id number] [address] [place] [id number] Mar, [facility] [address] [id number] [address] [place] [id number] Mar, [facility] [address] [id number] [address] [place] [address], [place] [address] Mar, [facility] [address] [id number] [address] [place] [address], [place] [address] Feb, [facility] [address] [id number] [address] [place] [address], [place] [address] Feb, [facility] [address] [id number] [address] [place] [address] 14 Feb, 2011 IMMUNIZATIONS No Known Immunizations [...]
--- OUTSIDE RECORDS SUMMARY | 2020-01-03 07:47 | XMS REPORT ---
Author Author Tra SILVERIO Organization [facility] Address [address] [place] [address] Care Team Providers Care Audit Intern Name Role Phone FERNY SILVERIO Unavailable PROBLEMS Type Condition ICD9-CM Code YHV68-LC Code Onset Dates Condition S tatus SNOMED Code Problem Insulin long-term use Z79.4 Active 122322414 Problem Hypertension I10 Active 3721204 3 Problem Diabetes E11.9 Active 83537958 Problem Hypoxia R09.02 Active 362380509 Problem Anxiety F41.9 Active 25368382 Problem Port catheter in place Z95.828 Active 366951965 Problem Pressure ulcer of other site, stage 3 L89.893 Active 681732364 Problem COPD (chronic obstructive pulmonary disease) J44.9 Active 45622238 Problem Type 2 diabetes mellitus wit h diabetic peripheral angiopathy without gangrene E11.51 Active 870941365 Problem Back pain M54.9 Active 332719245 Problem PAD (peripheral artery disease) I73.9 Active 654865194 Problem Lumbar radiculopathy, chronic M54.16 Active 564811119 Problem Recurrent major depressive disorder, in full remission F33.42 Active 849728698 Problem [facility] current use of insulin Z79.4 Active 452773045 ALLERGIES No Information ENCOUNTERS Encounter Location Date Diagnosis [facility] [address] [facility] [id number] [address] [place] [id number] Dec, [facility] [address] [facility] [id number] [address] [place] [id number] Nov, [facility] [address] [facility] [id number] [address] [place] [id number] Nov, Back pain M54.9 [facility] [address] [facility] [id number] [address] [place] [id number] Nov, Anxiety F41.9 [facility] [address] [id number] [address] [place] [id number] Nov, [facility] [address] [id number] [address] [place] [id number] Oct, Back pain M54.9 [facility] [address] [id number] [address] [place] [id number] Oct, [facility] [address] [id number] [address] [place] [id number] Oct, [facility] [address] [id number] [address] [place] [id number] Oct, [facility] [address] [id number] [address] [place] [id number] September, Back pain M54.9 [facility] [address] [id number] [address] [place] [id number] September, [facility] [address] [id number] [address] [place] [id number] September, [facility] [address] [id number] [address] [place] [id number] September, [facility] [address] [id number] [address] [place] [id number] Aug, Back pain M54.9 [facility] [address] [id number] [address] [place] [id number] Aug, Anxiety F41.9 [facility] [address] [id number] [address] [place] [id number] Aug, [facility] [address] [id number] [address] [place] [id number] Aug, Pressure ulcer of other site , stage 3 L89.893 and COPD (chronic obstructive pulmonary disease) J44.9 [facility] [address] [id number] [address] [place] [id number] Aug, History of smoking Z87.891 [facility] [address] [id number] [address] [place] [id number] Jul, Type 2 diabetes mellitus wit h diabetic peripheral angiopathy without gangrene E11.51 [facility] [address] [id number] [address] [place] [id number] Jul, Back pain M54.9 [facility] [address] [id number] [address] [place] [id number] Jul, Anxiety F41.9 [facility] [address] [id number] [address] [place] [id number] Jul, [facility] [address] [id number] [address] [place] [id number] Jul, Back pain M54.9 [facility] [address] [id number] [address] [place] [id number] Jul, Back pain M54.9 [facility] [address] [id number] [address] [place] [id number] Jul, Lumbar radiculopathy, chroni c M54.16 ; Hypertension I10 and Type 2 diabetes mellitus with diabetic peripheral angiopathy without gangrene E11.51 [facility] [address] [id number] [address] [place] [id number] Jul, Back pain M54.9 [facility] [address] [id number] [address] [place] [id number] Jul, Back pain M54.9 and Anxiety F41.9 [facility] [address] [id number] [address] [place] [id number] Jul, [facility] [address] [id number] [address] [place] [id number] May, Back pain M54.9 and Anxiety F41.9 [facility] [address] [id number] [address] [place] [id number] May, [facility] [address] [id number] [address] [place] [id number] Apr, Radiculopathy of lumbar rhiannon on M54.16 ; Back pain M54.9 and Anxiety F41.9 [facility] [address] [id number] [address] [place] [id number] Apr, Diabetes E11.9 ; Muscle spas m M62.838 and Lumbar radiculopathy, chronic M54.16 [facility] [address] [id number] [address] [place] [id number] 17 Apr, 2018 [facility] [address] [id number] [address] [place] [id number] Apr, [facility] [address] [id number] [address] [place] [id number] Mar, Back pain M54.9 and Anxiety F41.9 [facility] [address] [id number] [address] [place] [id number] Mar, [facility] [address] [id number] [address] [place] [id number] Mar, [facility] [address] [id number] [address] [place] [phone] Mar, [facility] [address] [id number] [address] [place] [id number] Mar, Encounter for immunization Z 23 [facility] [address] [id number] [address] [place] [id number] Feb, Back pain M54.9 and Anxiety F41.9 [facility] [address] [id number] [address] [place] [id number] 04 Feb, 2018 Back pain M54.9 and Anxiety F41.9 [facility] [address] [id number] [address] [place] [id number] 06 Jan, 2018 Back pain M54.9 and Anxiety F41.9 [facility] [address] [id number] [address] [place] [id number] Jan, [facility] [address] [id number] [address] [place] [id number] Dec, [facility] [address] [facility] [id number] [address] [place] [id number] Dec, Back pain M54.9 and Anxiety F41.9 [facility] [address] [facility] [id number] [address] [place] [id number] Dec, Diabetes E11.9 ; Type 2 diab etes mellitus with diabetic peripheral angiopathy without gangrene E11.51 ; Lumbar radiculopathy, chronic M54.16 ; COPD (chronic obstructive pulmonary disease) J44.9 and Anxiety F41.9 [facility] [address] [facility] [id number] [address] [place] [id number] Dec, Back pain M54.9 and Anxiety F41.9 [place] [address] [facility] [id number] [address] [place] [id number] Nov, Back pain M54.9 and Anxiety F41.9 [facility] [address] [facility] [id number] [address] [place] [id number] Oct, [facility] [address] [facility] [id number] [address] [place] [id number] Oct, Back pain M54.9 and Anxiety F41.9 [facility] [address] [facility] [id number] [address] [place] [id number] September, Anxiety F41.9 and Back pain M54.9 [facility] [address] [facility] [id number] [address] [place] [id number] September, Diabetes E11.9 ; Hypertensio n I10 ; COPD (chronic obstructive pulmonary disease) J44.9 and Lumbar radiculopathy, chronic M54.16 [facility] [address] [facility] [id number] [address] [place] [id number] September, Anxiety F41.9 [facility] [address] [facility] [id number] [address] [place] [id number] Aug, [facility] [address] [facility] [id number] [address] [place] [id number] Aug, [facility] [address] [facility] [id number] [address] [place] [id number] Aug, Anxiety F41.9 and Back pain M54.9 [facility] [address] [facility] [id number] [address] [place] [id number] Aug, Medicare annual wellness vis it, initial Z00.00 ; COPD (chronic obstructive pulmonary disease) J44.9 ; PAD (peripheral artery disease) I73.9 ; Insulin long-term use Z79.4 ; Hypertension I10 ; Anxiety F41.9 ; Recurrent major depressive disorder, in full remission F33.42 ; Pressure ulcer of other site, stage 3 L89.893 ; Type 2 diabetes mellitus with diabetic peripheral angiopathy without gangrene E11.51 and emt intermediate current use of insulin Z79.4 [facility] [address] [facility] [id number] [address] [place] [id number] Jul, Back pain M54.9 [place] [id number] [facility] [id number] [address] [place] [id number] Jul, [facility] [address] [facility] [id number] [address] [place] [id number] Jul, Anxiety F41.9 and Back pain M54.9 [facility] [address] [facility] [id number] [address] [place] [id number] Jul, Diabetes E11.9 [facility] [address] [facility] [id number] [address] [place] [id number] May, [facility] [address] [facility] [id number] [address] [place] [id number] May, Diabetes E11.9 ; Anxiety F41 .9 ; Back pain M54.9 and COPD (chronic obstructive pulmonary disease) J44.9 [facility] [address] [id number] [address] [place] [id number] May, Back pain M54.9 [facility] [address] [id number] [address] [place] [id number] May, [facility] [address] [id number] [address] [place] [id number] Apr, Back pain M54.9 [facility] [address] [id number] [address] [place] [id number] Mar, Back pain M54.9 [facility] [address] [id number] [address] [place] [id number] Mar, [facility] [address] [id number] [address] [place] [id number] 16 Mar, 2017 [facility] [address] [id number] [address] [place] [id number] 14 Mar, 2017 Radiculopathy of lumbar rhiannon on M54.16 [facility] [address] [id number] [address] [place] [id number] 13 Mar, 2017 [facility] [address] [id number] [address] [place] [id number] 07 Mar, 2017 Encounter for immunization Z 23 and Lumbar radiculopathy, chronic M54.16 [facility] [address] [id number] [address] [place] [id number] Mar, Back pain M54.9 and Anxiety F41.9 [facility] [address] [id number] [address] [place] [id number] 10 Feb, 2017 Acute bilateral low back boy n with left-sided sciatica M54.42 and Acute bilateral low back pain with right-sided sciatica M54.41 [facility] [address] [id number] [address] [place] [id number] Feb, [facility] [address] [id number] [address] [place] [id number] Feb, Back pain M54.9 [facility] [address] [id number] [address] [place] [id number] 05 Jan, 2017 Back pain M54.9 and Anxiety F41.9 [facility] [address] [id number] [address] [place] [id number] 05 Jan, 2017 Diabetes E11.9 [facility] [address] [id number] [address] [place] [id number] Dec, Diabetes E11.9 ; Back pain M 54.9 ; Anxiety F41.9 and Insulin long- term use Z79.4 [facility] [address] [id number] [address] [place] [id number] Dec, Anxiety F41.9 [facility] [address] [id number] [address] [place] [id number] Dec, Back pain M54.9 [facility] [address] [id number] [address] [place] [id number] Nov, Back pain M54.9 [facility] [address] [id number] [address] [place] [id number] Oct, Back pain M54.9 and Anxiety F41.9 [facility] [address] [id number] [address] [place] [id number] September, Back pain M54.9 [facility] [address] [id number] [address] [place] [id number] September, Back pain M54.9 and Anxiety F41.9 [facility] [address] [id number] [address] [place] [id number] Aug, Diabetes E11.9 ; Anxiety F41 .9 ; Back pain M54.9 and PAD (peripheral artery disease) I73.9 [facility] [address] [id number] [address] [place] [id number] Aug, Anxiety F41.9 [facility] [address] [id number] [address] [place] [id number] Aug, Back pain M54.9 [facility] [address] [id number] [address] [place] [id number] Jul, Back pain M54.9 [facility] [address] [id number] [address] [place] [id number] Jul, Back pain M54.9 [facility] [address] [id number] [address] [place] [id number] Jul, Back pain M54.9 [facility] [address] [id number] [address] [place] [id number] Jul, Dorsalgia M54.9 [facility] [address] [id number] [address] [place] [id number] Jul, [facility] [address] [id number] [address] [place] [id number] May, Back pain M54.9 [facility] [address] [id number] [address] [place] [id number] May, Diabetes E11.9 ; Anxiety F41 .9 ; Port catheter in place Z95.828 ; Encounter for immunization Z23 and Insulin long-term use Z79.4 [facility] [address] [id number] [address] [place] [id number] Apr, Back pain M54.9 [facility] [address] [id number] [address] [place] [id number] Apr, Back pain M54.9 [facility] [address] [id number] [address] [place] [id number] Apr, [facility] [address] [id number] [address] [place] [id number] Apr, Back pain M54.9 [facility] [address] [id number] [address] [place] [id number] Mar, COPD (chronic obstructive pu lmonary disease) J44.9 [facility] [address] [id number] [address] [place] [id number] Feb, [facility] [address] [id number] [address] [place] [id number] 30 Jan, 2016 [facility] [address] [id number] [address] [place] [id number] 20 Jan, 2016 [facility] [address] [id number] [address] [place] [id number] 07 Jan, 2016 [facility] [address] [id number] [address] [place] [id number] Jan, [facility] [address] [id number] [address] [place] [id number] Dec, Diabetes E11.9 ; Hypoxia R09 .02 and Back pain M54.9 [facility] [address] [id number] [address] [place] [id number] Dec, [facility] [address] [id number] [address] [place] [id number] Nov, [facility] [address] [id number] [address] [place] [id number] Oct, Anxiety F41.9 [facility] [address] [id number] [address] [place] [id number] Oct, Back pain M54.9 [facility] [address] [id number] [address] [place] [id number] September, Back pain M54.9 [facility] [address] [id number] [address] [place] [id number] September, Diabetes E11.9 [facility] [address] [id number] [address] [place] [id number] September, [facility] [address] [id number] [address] [place] [id number] September, Diabetes E11.9 ; Insulin sarai g-term use Z79.4 and Back pain M54.9 [facility] [address] [id number] [address] [place] [id number] Aug, Back pain M54.9 [facility] [address] [facility] [id number] [address] [place] [id number] Aug, Back pain M54.9 ; Anxiety F4 1.9 and Arthropathy, unspecified M12.9 [facility] [address] [id number] [address] [place] [id number] Jul, Back pain M54.9 [facility] [address] [facility] [id number] [address] [place] [id number] Jul, Anxiety F41.9 [facility] [address] [facility] [id number] [address] [place] [id number] Jul, Back pain M54.9 [facility] [address] [facility] [id number] [address] [place] [id number] Jul, [facility] [address] [facility] [id number] [address] [place] [id number] Jul, [facility] [address] [place] [id number] [address] [place] [id number] May, Back pain M54.9 ; Diabetes E 11.9 ; Insulin long-term use Z79.4 ; COPD (chronic obstructive pulmonary disease) J44.9 and Hypertension I10 [facility] [address] [facility] [id number] [address] [place] [id number] May, Chronic pain G89.29 [facility] [address] [facility] [id number] [address] [place] [id number] Apr, [facility] [address] [place] [id number] [address] [place] [id number] Apr, [facility] [address] [place] [id number] [address] [place] [id number] Mar, [facility] [address] [place] [id number] [address] [place] [id number] Mar, Encounter for immunization Z 23 and Diabetes E11.9 [facility] [address] [id number] [address] [place] [id number] Feb, [facility] [address] [id number] [address] [place] [id number] Feb, [facility] [address] [id number] [address] [place] [id number] Jan, [facility] [address] [id number] [address] [place] [id number] Jan, [facility] [address] [id number] [address] [place] [id number] Dec, [facility] [address] [facility] [id number] [address] [place] [id number] Dec, [facility] [address] [facility] [id number] [address] [place] [id number] Dec, Unspecified arthropathy, sit e unspecified 716.90 and Diabetes mellitus type 2, uncontrolled 250.02 [facility] [address] [id number] [address] [place] [id number] Dec, [facility] [address] [facility] [id number] [address] [place] [id number] Nov, [facility] [address] [id number] [address] [place] [id number] Oct, [facility] [address] [id number] [address] [place] [id number] September, [facility] [address] [id number] [address] [place] [id number] September, [facility] [address] [facility] [id number] [address] [place] [id number] September, [facility] [address] [facility] [id number] [address] [place] [id number] September, [facility] [address] [id number] [address] [place] [address], [place] [id number] 14 Aug, 2014 [facility] [address] [id number] [address] [place] [address], [place] [id number] 13 Aug, 2014 [facility] [address] [id number] [address] [place] [address], [place] [phone] 18 Jul, 2014 [facility] [address] [id number] [address] [place] [address], [place] [id number] 18 Jul, 2014 [facility] [address] [id number] [address] [place] [address], [place] [id number] 16 Jul, 2014 [facility] [address] [id number] [address] [place] [address], [place] [id number] 16 Jul, 2014 [facility] [address] [id number] [address] [place] [address], [place] [id number] 16 Jul, 2014 [facility] [address] [id number] [address] [place] [address], [place] [address] 16 Jul, 2014 [facility] [address] [id number] [address] [place] [address], [place] [address] 16 Jul, 2014 [facility] [address] [id number] [address] [place] [address], [place] [address] 16 Jul, 2014 [facility] [address] [id number] [address] [place] [address], [place] [address] 16 Jul, 2014 [facility] [address] [id number] [address] [place] [address], [place] [address] 13 Jul, 2014 [facility] [address] [id number] [address] [place] [address], [place] [address] 13 Jul, 2014 [facility] [address] [id number] [address] [place] [address], [place] [address] 09 Jul, 2014 [facility] [address] [id number] [address] [place] [address], [place] [address] 09 Jul, 2014 [facility] [address] [id number] [address] [place] [id number] 17 Jul, 2014 [facility] [address] [id number] [address] [place] [address], [place] [address] 17 Jul, 2014 [facility] [address] [id number] [address] [place] [address], [place] [address] 16 Jul, 2014 [facility] [address] [id number] [address] [place] [address], [place] [address] 16 Jul, 2014 [facility] [address] [id number] [address] [place] [address], [place] [address] 16 Jul, 2014 [facility] [address] [id number] [address] [place] [address], [place] [address] 16 Jul, 2014 [facility] [address] [id number] [address] [place] [address], [place] [address] 16 Jul, 2014 [facility] [address] [id number] [address] [place] [address], [place] [address] 16 Jul, 2014 [facility] [address] [id number] [address] [place] [address], [place] [address] 16 Jul, 2014 [facility] [address] [id number] [address] [place] [address], [place] [address] 16 Jul, 2014 [facility] [address] [id number] [address] [place] [id number] 16 Jul, 2014 [facility] [address] [id number] [address] [place] [address], [place] [address] 16 Jul, 2014 [facility] [address] [id number] [address] [place] [address] 16 Jul, 2014 [facility] [address] [id number] [address] [place] [address], [place] [address] 16 Jul, 2014 [facility] [address] [id number] [address] [place] [address] 16 Jul, 2014 [facility] [address] [id number] [address] [place] [address] Jul, [facility] [address] [id number] [address] [place] [address], [place] [address] May, [facility] [address] [id number] [address] [place] [address], [place] [address] May, [facility] [address] [id number] [address] [place] [address], [place] [address] May, [facility] [address] [id number] [address] [place] [address], [place] [address] May, [facility] [address] [id number] [address] [place] [address], [place] [address] May, [facility] [address] [id number] [address] [place] [address], [place] [address] May, [facility] [address] [id number] [address] [place] [address], [place] [address] May, [facility] [address] [id number] [address] [place] [address], [place] [address] May, [facility] [address] [id number] [address] [place] [address], [place] [address] May, [facility] [address] [id number] [address] [place] [address], [place] [address] May, [facility] [address] [id number] [address] [place] [address], [place] [address] Apr, [facility] [address] [id number] [address] [place] [address], [place] [address] Apr, [facility] [address] [id number] [address] [place] [address], [place] [address] Apr, [facility] [address] [id number] [address] [place] [address], [place] [address] Apr, [facility] [address] [id number] [address] [place] [address], [place] [address] Apr, [facility] [address] [id number] [address] [place] [address], [place] [address] Apr, [facility] [address] [id number] [address] [place] [address], [place] [address] Mar, [facility] [address] [id number] [address] [place] [address], [place] [address] Mar, [facility] [address] [id number] [address] [place] [address], [place] [address] Mar, [facility] [address] [id number] [address] [place] [address], [place] [address] Mar, [facility] [address] [id number] [address] [place] [address], [place] [address] Mar, [facility] [address] [id number] [address] [place] [address], [place] [address] Mar, [facility] [address] [id number] [address] [place] [address], [place] [address] Mar, [facility] [address] [id number] [address] [place] [address], [place] [address] Mar, [facility] [address] [id number] [address] [place] [address], [place] [address] Mar, [facility] [address] [id number] [address] [place] [address], [place] [address] Mar, [facility] [address] [id number] [address] [place] [address], [place] [address] Mar, [facility] [address] [id number] [address] [place] [address], [place] [address] Feb, [facility] [address] [id number] [address] [place] [address], [place] [address] Feb, [facility] [address] [id number] [address] [place] [address], [place] [address] Feb, [facility] [address] [id number] [address] [place] [address], [place] [address] Feb, [facility] [address] [id number] [address] [place] [address], [place] [address] Feb, [facility] [address] [id number] [address] [place] [address], [place] [address] Feb, [facility] [address] [id number] [address] [place] [address], [place] [address] Feb, [facility] [address] [id number] [address] [place] [address], [place] [address] Feb, [facility] [address] [id number] [address] [place] [address], [place] [address] Feb, [facility] [address] [id number] [address] [place] [address], [place] [address] Feb, [facility] [address] [id number] [address] [place] [address], [place] [address] Jan, [facility] [address] [id number] [address] [place] [address], [place] [address] 22 Jan, 2014 [facility] [address] [id number] [address] [place] [address], [place] [address] 16 Jan, 2014 [facility] [address] [id number] [address] [place] [address], [place] [address] 16 Jan, 2014 [facility] [address] [id number] [address] [place] [address], [place] [address] 12 Jan, 2014 [facility] [address] [id number] [address] [place] [address], [place] [address] Jan, [facility] [address] [id number] [address] [place] [address], [place] [address] Jan, [facility] [address] [id number] [address] [place] [address], [place] [address] Dec, [facility] [address] [id number] [address] [place] [address], [place] [address] Dec, [facility] [address] [id number] [address] [place] [address], [place] [address] Dec, [facility] [address] [id number] [address] [place] [address], [place] [address] Dec, [facility] [address] [id number] [address] [place] [address], [place] [address] Dec, [facility] [address] [id number] [address] [place] [address], [place] [address] Dec, [facility] [address] [id number] [address] [place] [address], [place] [address] Dec, [facility] [address] [id number] [address] [place] [address], [place] [address] Dec, [facility] [address] [id number] [address] [place] [address], [place] [address] Oct, [facility] [address] [id number] [address] [place] [address], [place] [address] Oct, [facility] [address] [id number] [address] [place] [address], [place] [address] September, [facility] [address] [id number] [address] [place] [address], [place] [address] September, [facility] [address] [id number] [address] [place] [address], [place] [address] September, [facility] [address] [id number] [address] [place] [address], [place] [address] September, [facility] [address] [id number] [address] [place] [address], [place] [address] September, [facility] [address] [id number] [address] [place] [address], [place] [address] September, [facility] [address] [id number] [address] [place] [address], [place] [address] September, [facility] [address] [id number] [address] [place] [address], [place] [address] Aug, [facility] [address] [id number] [address] [place] [address], [place] [address] 15 Aug, 2013 [facility] [address] [id number] [address] [place] [address], [place] [address] Jul, [facility] [address] [id number] [address] [place] [address], [place] [address] Jul, [facility] [address] [id number] [address] [place] [address], [place] [address] Jul, [facility] [address] [id number] [address] [place] [address], [place] [address] Jul, [facility] [address] [id number] [address] [place] [address], [place] [address] Jul, [facility] [address] [id number] [address] [place] [address], [place] [address] Jul, [facility] [address] [id number] [address] [place] [address], [place] [address] Jul, [facility] [address] [id number] [address] [place] [address], [place] [address] Jul, [facility] [address] [id number] [address] [place] [address], [place] [address] May, [facility] [address] [id number] [address] [place] [address], [place] [address] May, [facility] [address] [id number] [address] [place] [address], [place] [address] May, [facility] [address] [id number] [address] [place] [address], [place] [address] May, [facility] [address] [id number] [address] [place] [address], [place] [address] Apr, [facility] [address] [id number] [address] [place] [address], [place] [address] Mar, [facility] [address] [id number] [address] [place] [address] Mar, [facility] [address] [id number] [address] [place] [address], [place] [address] Mar, [facility] [address] [id number] [address] [place] [address] Mar, [facility] [address] [id number] [address] [place] [address], [place] [address] Mar, [facility] [address] [id number] [address] [place] [address] Mar, [facility] [address] [id number] [address] [place] [address], [place] [address] Mar, [facility] [address] [id number] [address] [place] [address] 18 Mar, 2013 [facility] [address] [id number] [address] [place] [address] Mar, [facility] [address] [id number] [address] [place] [address] Mar, [facility] [address] [id number] [address] [place] [address] 04 Mar, 2013 [facility] [address] [id number] [address] [place] [address] 04 Mar, 2013 [facility] [address] [id number] [address] [place] [address] 15 Feb, 2013 [facility] [address] [id number] [address] [place] [address] 15 Feb, 2013 [facility] [address] [id number] [address] [place] [address] 11 Feb, 2013 [facility] [address] [id number] [address] [place] [id number] 11 Feb, 2013 [facility] [address] [id number] [address] [place] [id number] 07 Feb, 2013 [facility] [address] [id number] [address] [place] [address], [place] [address] Jan, [facility] [address] [id number] [address] [place] [address], [place] [address] Dec, [facility] [address] [id number] [address] [place] [address], [place] [address] Dec, [facility] [address] [id number] [address] [place] [address], [place] [address] Dec, [facility] [address] [id number] [address] [place] [address], [place] [address] Nov, [facility] [address] [id number] [address] [place] [address], [place] [address] Nov, [facility] [address] [id number] [address] [place] [address], [place] [address] Nov, [facility] [address] [id number] [address] [place] [address], [place] [address] Oct, [facility] [address] [id number] [address] [place] [address], [place] [address] Oct, [facility] [address] [id number] [address] [place] [address], [place] [address] Oct, [facility] [address] [id number] [address] [place] [address], [place] [address] September, [facility] [address] [id number] [address] [place] [address], [place] [address] September, [facility] [address] [id number] [address] [place] [address], [place] [address] September, [facility] [address] [id number] [address] [place] [address], [place] [address] September, [facility] [address] [id number] [address] [place] [address], [place] [address] September, [facility] [address] [id number] [address] [place] [address], [place] [address] Aug, [facility] [address] [id number] [address] [place] [address], [place] [address] Aug, [facility] [address] [id number] [address] [place] [address], [place] [address] Aug, [facility] [address] [id number] [address] [place] [address], [place] [address] Jul, [facility] [address] [id number] [address] [place] [address], [place] [address] Jul, [facility] [address] [id number] [address] [place] [address], [place] [address] Jul, [facility] [address] [id number] [address] [place] [address], [place] [address] Jul, [facility] [address] [id number] [address] [place] [address], [place] [address] Jul, [facility] [address] [id number] [address] [place] [address], [place] [address] Jul, [facility] [address] [id number] [address] [place] [address], [place] [address] Jul, [facility] [address] [id number] [address] [place] [address], [place] [address] May, [facility] [address] [id number] [address] [place] [address], [place] [address] May, [facility] [address] [id number] [address] [place] [address], [place] [address] May, [facility] [address] [id number] [address] [place] [address], [place] [address] Apr, [facility] [address] [id number] [address] [place] [address], [place] [address] Apr, [facility] [address] [id number] [address] [place] [address], [place] [address] Apr, [facility] [address] [id number] [address] [place] [address], [place] [address] Apr, [facility] [address] [id number] [address] [place] [address], [place] [address] Apr, [facility] [address] [id number] [address] [place] [address], [place] [address] Mar, [facility] [address] [id number] [address] [place] [address], [place] [address] Mar, [facility] [address] [id number] [address] [place] [address], [place] [address] Mar, [facility] [address] [id number] [address] [place] [address], [place] [address] Mar, [facility] [address] [id number] [address] [place] [address], [place] [address] Feb, [facility] [address] [id number] [address] [place] [address], [place] [address] Feb, [facility] [address] [id number] [address] [place] [address], [place] [address] Feb, [facility] [address] [id number] [address] [place] [address], [place] [address] Feb, [facility] [address] [id number] [address] [place] [address], [place] [address] Feb, [facility] [address] [id number] [address] [place] [address], [place] [address] Jan, [facility] [address] [id number] [address] [place] [address], [place] [address] Dec, [facility] [address] [id number] [address] [place] [address], [place] [address] Dec, [facility] [address] [id number] [address] [place] [address], [place] [address] Dec, [facility] [address] [id number] [address] [place] [address], [place] [address] Nov, [facility] [address] [id number] [address] [place] [address], [place] [address] Nov, [facility] [address] [id number] [address] [place] [address], [place] [address] Nov, [facility] [address] [id number] [address] [place] [address], [place] [address] Oct, [facility] [address] [id number] [address] [place] [address], [place] [address] Oct, [facility] [address] [id number] [address] [place] [address], [place] [address] Oct, [facility] [address] [id number] [address] [place] [address], [place] [address] Oct, [facility] [address] [id number] [address] [place] [address], [place] [address] September, [facility] [address] [id number] [address] [place] [address], [place] [address] September, [facility] [address] [id number] [address] [place] [address], [place] [address] Aug, [facility] [address] [id number] [address] [place] [address], [place] [address] Aug, [facility] [address] [id number] [address] [place] [address], [place] [address] Aug, [facility] [address] [id number] [address] [place] [address], [place] [address] Aug, [facility] [address] [id number] [address] [place] [address], [place] [address] Aug, [facility] [address] [id number] [address] [place] [address], [place] [address] Aug, [facility] [address] [id number] [address] [place] [address], [place] [address] Aug, [facility] [address] [id number] [address] [place] [address], [place] [address] Jul, [facility] [address] [id number] [address] [place] [address], [place] [address] Jul, [facility] [address] [id number] [address] [place] [address], [place] [address] Jul, [facility] [address] [id number] [address] [place] [address], [place] [address] May, [facility] [address] [id number] [address] [place] [address], [place] [address] May, [facility] [address] [id number] [address] [place] [address], [place] [address] May, [facility] [address] [id number] [address] [place] [address], [place] [address] Apr, [facility] [address] [id number] [address] [place] [address], [place] [address] Apr, [facility] [address] [id number] [address] [place] [address], [place] [address] Mar, [facility] [address] [id number] [address] [place] [address], [place] [address] Mar, [facility] [address] [id number] [address] [place] [address], [place] [address] Mar, [facility] [address] [id number] [address] [place] [address] Mar, [facility] [address] [id number] [address] [place] [address] Mar, [facility] [address] [id number] [address] [place] [address], [place] [address] Mar, [facility] [address] [id number] [address] [place] [address], [place] [address] Feb, [facility] [address] [id number] [address] [place] [address], [place] [address] Feb, [facility] [address] [id number] [address] [place] [address] 14 Feb, 2011 IMMUNIZATIONS No Known Immunizations [...]
--- OUTSIDE RECORDS SUMMARY | 2020-01-03 07:48 | XMS REPORT ---
Author Author Tra SILVERIO Organization [facility] Address [address] [place] [address] Care Team Providers Care Manual Plate Filler Name Role Phone FERNY SILVERIO Unavailable PROBLEMS Type Condition ICD9-CM Code KNO67-LU Code Onset Dates Condition S tatus SNOMED Code Problem Insulin long-term use Z79.4 Active 403328672 Problem Hypertension I10 Active 9501408 3 Problem Diabetes E11.9 Active 77138841 Problem Hypoxia R09.02 Active 823122674 Problem Anxiety F41.9 Active 49725603 Problem Port catheter in place Z95.828 Active 139825008 Problem Pressure ulcer of other site, stage 3 L89.893 Active 706865197 Problem COPD (chronic obstructive pulmonary disease) J44.9 Active 25221964 Problem Type 2 diabetes mellitus wit h diabetic peripheral angiopathy without gangrene E11.51 Active 209147272 Problem Back pain M54.9 Active 173256901 Problem PAD (peripheral artery disease) I73.9 Active 055635857 Problem Lumbar radiculopathy, chronic M54.16 Active 378605593 Problem Recurrent major depressive disorder, in full remission F33.42 Active 515406356 Problem intermediate current use of insulin Z79.4 Active 984799586 ALLERGIES No Information ENCOUNTERS Encounter Location Date Diagnosis [facility] [address] [facility] [id number] [address] [place] [phone] Dec, [facility] [address] [facility] [id number] [address] [place] [id number] Nov, [facility] [address] [facility] [id number] [address] [place] [phone] Nov, Back pain M54.9 [facility] [address] [facility] [id number] [address] [place] [id number] Nov, Anxiety F41.9 [facility] [address] [id number] [address] [place] [phone] Nov, [facility] [address] [id number] [address] [place] [phone] Oct, Back pain M54.9 [facility] [address] [id number] [address] [place] [id number] Oct, [facility] [address] [id number] [address] [place] [phone] Oct, [facility] [address] [id number] [address] [place] [phone] Oct, [facility] [address] [id number] [address] [place] [phone] September, Back pain M54.9 [facility] [address] [id number] [address] [place] [phone] September, [facility] [address] [id number] [address] [place] [phone] September, [facility] [address] [id number] [address] [place] [phone] September, [facility] [address] [id number] [address] [place] [phone] Aug, Back pain M54.9 [facility] [address] [id number] [address] [place] [phone] Aug, Anxiety F41.9 [facility] [address] [id number] [address] [place] [phone] Aug, [facility] [address] [id number] [address] [place] [id number] Aug, Pressure ulcer of other site , stage 3 L89.893 and COPD (chronic obstructive pulmonary disease) J44.9 [facility] [address] [id number] [address] [place] [id number] Aug, History of smoking Z87.891 [facility] [address] [id number] [address] [place] [id number] Jul, Type 2 diabetes mellitus wit h diabetic peripheral angiopathy without gangrene E11.51 [facility] [address] [id number] [address] [place] [id number] Jul, Back pain M54.9 [facility] [address] [id number] [address] [place] [id number] Jul, Anxiety F41.9 [facility] [address] [id number] [address] [place] [phone] Jul, [facility] [address] [id number] [address] [place] [id number] Jul, Back pain M54.9 [facility] [address] [id number] [address] [place] [id number] Jul, Back pain M54.9 [facility] [address] [id number] [address] [place] [address] Jul, Lumbar radiculopathy, chroni c M54.16 ; Hypertension I10 and Type 2 diabetes mellitus with diabetic peripheral angiopathy without gangrene E11.51 [facility] [address] [id number] [address] [place] [id number] Jul, Back pain M54.9 [facility] [address] [id number] [address] [place] [phone] Jul, Back pain M54.9 and Anxiety F41.9 [facility] [address] [id number] [address] [place] [phone] Jul, [facility] [address] [id number] [address] [place] [id number] May, Back pain M54.9 and Anxiety F41.9 [facility] [address] [id number] [address] [place] [phone] May, [facility] [address] [id number] [address] [place] [address] Apr, Radiculopathy of lumbar rhiannon on M54.16 ; Back pain M54.9 and Anxiety F41.9 [facility] [address] [id number] [address] [place] [address] Apr, Diabetes E11.9 ; Muscle spas m M62.838 and Lumbar radiculopathy, chronic M54.16 [facility] [address] [id number] [address] [place] [id number] 17 Apr, 2018 [facility] [address] [id number] [address] [place] [phone] Apr, [facility] [address] [id number] [address] [place] [phone] Mar, Back pain M54.9 and Anxiety F41.9 [facility] [address] [id number] [address] [place] [phone] Mar, [facility] [address] [id number] [address] [place] [id number] Mar, [facility] [address] [id number] [address] [place] [phone] Mar, [facility] [address] [id number] [address] [place] [phone] Mar, Encounter for immunization Z 23 [facility] [address] [id number] [address] [place] [id number] Feb, Back pain M54.9 and Anxiety F41.9 [facility] [address] [id number] [address] [place] [id number] 04 Feb, 2018 Back pain M54.9 and Anxiety F41.9 [facility] [address] [id number] [address] [place] [id number] 06 Jan, 2018 Back pain M54.9 and Anxiety F41.9 [facility] [address] [id number] [address] [place] [phone] Jan, [facility] [address] [id number] [address] [place] [id number] Dec, [facility] [address] [facility] [id number] [address] [place] [id number] Dec, Back pain M54.9 and Anxiety F41.9 [facility] [address] [facility] [id number] [address] [place] [id number] Dec, Diabetes E11.9 ; Type 2 diab etes mellitus with diabetic peripheral angiopathy without gangrene E11.51 ; Lumbar radiculopathy, chronic M54.16 ; COPD (chronic obstructive pulmonary disease) J44.9 and Anxiety F41.9 [facility] [address] [facility] [id number] [address] [place] [address] Dec, Back pain M54.9 and Anxiety F41.9 [place] [address] [facility] [id number] [address] [place] [phone] Nov, Back pain M54.9 and Anxiety F41.9 [facility] [address] [facility] [id number] [address] [place] [phone] Oct, [facility] [address] [facility] [id number] [address] [place] [id number] Oct, Back pain M54.9 and Anxiety F41.9 [facility] [address] [facility] [id number] [address] [place] [phone] September, Anxiety F41.9 and Back pain M54.9 [facility] [address] [facility] [id number] [address] [place] [id number] September, Diabetes E11.9 ; Hypertensio n I10 ; COPD (chronic obstructive pulmonary disease) J44.9 and Lumbar radiculopathy, chronic M54.16 [facility] [address] [facility] [id number] [address] [place] [phone] September, Anxiety F41.9 [facility] [address] [facility] [id number] [address] [place] [id number] Aug, [facility] [address] [facility] [id number] [address] [place] [phone] Aug, [facility] [address] [facility] [id number] [address] [place] [address] Aug, Anxiety F41.9 and Back pain M54.9 [facility] [address] 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 [id number] [address] [place] [phone] Jul, Back pain M54.9 [place] [address] [facility] [id number] [address] [place] [id number] Jul, [facility] [address] [facility] [id number] [address] [place] [id number] Jul, Anxiety F41.9 and Back pain M54.9 [facility] [address] [facility] [id number] [address] [place] [id number] Jul, Diabetes E11.9 [facility] [address] [facility] [id number] [address] [place] [id number] May, [facility] [address] [facility] [id number] [address] [place] [phone] May, Diabetes E11.9 ; Anxiety F41 .9 ; Back pain M54.9 and COPD (chronic obstructive pulmonary disease) J44.9 [facility] [address] [id number] [address] [place] [id number] May, Back pain M54.9 [facility] [address] [id number] [address] [place] [phone] May, [facility] [address] [id number] [address] [place] [phone] Apr, Back pain M54.9 [facility] [address] [id number] [address] [place] [phone] Mar, Back pain M54.9 [facility] [address] [id number] [address] [place] [id number] Mar, [facility] [address] [id number] [address] [place] [phone] 16 Mar, 2017 [facility] [address] [id number] [address] [place] [id number] 14 Mar, 2017 Radiculopathy of lumbar rhiannon on M54.16 [facility] [address] [id number] [address] [place] [id number] 13 Mar, 2017 [facility] [address] [id number] [address] [place] [phone] 07 Mar, 2017 Encounter for immunization Z 23 and Lumbar radiculopathy, chronic M54.16 [facility] [address] [id number] [address] [place] [id number] Mar, Back pain M54.9 and Anxiety F41.9 [facility] [address] [id number] [address] [place] [id number] 10 Feb, 2017 Acute bilateral low back boy n with left-sided sciatica M54.42 and Acute bilateral low back pain with right-sided sciatica M54.41 [facility] [address] [id number] [address] [place] [id number] Feb, [facility] [address] [id number] [address] [place] [phone] Feb, Back pain M54.9 [facility] [address] [id number] [address] [place] [id number] 05 Jan, 2017 Back pain M54.9 and Anxiety F41.9 [facility] [address] [id number] [address] [place] [phone] 05 Jan, 2017 Diabetes E11.9 [facility] [address] [id number] [address] [place] [id number] Dec, Diabetes E11.9 ; Back pain M 54.9 ; Anxiety F41.9 and Insulin long- term use Z79.4 [facility] [address] [id number] [address] [place] [address] Dec, Anxiety F41.9 [facility] [address] [id number] [address] [place] [id number] Dec, Back pain M54.9 [facility] [address] [id number] [address] [place] [id number] Nov, Back pain M54.9 [facility] [address] [id number] [address] [place] [id number] Oct, Back pain M54.9 and Anxiety F41.9 [facility] [address] [id number] [address] [place] [id number] September, Back pain M54.9 [facility] [address] [id number] [address] [place] [id number] September, Back pain M54.9 and Anxiety F41.9 [facility] [address] [id number] [address] [place] [id number] Aug, Diabetes E11.9 ; Anxiety F41 .9 ; Back pain M54.9 and PAD (peripheral artery disease) I73.9 [facility] [address] [id number] [address] [place] [address] Aug, Anxiety F41.9 [facility] [address] [id number] [address] [place] [phone] Aug, Back pain M54.9 [facility] [address] [id number] [address] [place] [id number] Jul, Back pain M54.9 [facility] [address] [id number] [address] [place] [id number] Jul, Back pain M54.9 [facility] [address] [id number] [address] [place] [id number] Jul, Back pain M54.9 [facility] [address] [id number] [address] [place] [id number] Jul, Dorsalgia M54.9 [facility] [address] [id number] [address] [place] [id number] Jul, [facility] [address] [id number] [address] [place] [id number] May, Back pain M54.9 [facility] [address] [id number] [address] [place] [address] May, Diabetes E11.9 ; Anxiety F41 .9 ; Port catheter in place Z95.828 ; Encounter for immunization Z23 and Insulin long-term use Z79.4 [facility] [address] [id number] [address] [place] [address] Apr, Back pain M54.9 [facility] [address] [id number] [address] [place] [address] Apr, Back pain M54.9 [facility] [address] [id number] [address] [place] [id number] Apr, [facility] [address] [id number] [address] [place] [address] Apr, Back pain M54.9 [facility] [address] [id number] [address] [place] [id number] Mar, COPD (chronic obstructive pu lmonary disease) J44.9 [facility] [address] [id number] [address] [place] [phone] Feb, [facility] [address] [id number] [address] [place] [id number] 30 Jan, 2016 [facility] [address] [id number] [address] [place] [phone] 20 Jan, 2016 [facility] [address] [id number] [address] [place] [phone] 07 Jan, 2016 [facility] [address] [id number] [address] [place] [phone] Jan, [facility] [address] [id number] [address] [place] [id number] Dec, Diabetes E11.9 ; Hypoxia R09 .02 and Back pain M54.9 [facility] [address] [id number] [address] [place] [phone] Dec, [facility] [address] [id number] [address] [place] [id number] Nov, [facility] [address] [id number] [address] [place] [id number] Oct, Anxiety F41.9 [facility] [address] [id number] [address] [place] [phone] Oct, Back pain M54.9 [facility] [address] [id number] [address] [place] [id number] September, Back pain M54.9 [facility] [address] [id number] [address] [place] [id number] September, Diabetes E11.9 [facility] [address] [id number] [address] [place] [id number] September, [facility] [address] [id number] [address] [place] [id number] September, Diabetes E11.9 ; Insulin sarai g-term use Z79.4 and Back pain M54.9 [facility] [address] [id number] [address] [place] [id number] Aug, Back pain M54.9 [facility] [address] [facility] [id number] [address] [place] [phone] Aug, Back pain M54.9 ; Anxiety F4 1.9 and Arthropathy, unspecified M12.9 [facility] [address] [id number] [address] [place] [id number] Jul, Back pain M54.9 [facility] [address] [facility] [id number] [address] [place] [id number] Jul, Anxiety F41.9 [facility] [address] [facility] [id number] [address] [place] [id number] Jul, Back pain M54.9 [facility] [address] [facility] [id number] [address] [place] [id number] Jul, [facility] [address] [facility] [id number] [address] [place] [id number] Jul, [facility] [address] [place] [id number] [address] [place] [address] May, Back pain M54.9 ; Diabetes E 11.9 ; Insulin long-term use Z79.4 ; COPD (chronic obstructive pulmonary disease) J44.9 and Hypertension I10 [facility] [address] [facility] [id number] [address] [place] [phone] May, Chronic pain G89.29 [facility] [address] [facility] [id number] [address] [place] [phone] Apr, [facility] [address] [place] [id number] [address] [place] [id number] Apr, [facility] [address] [place] [id number] [address] [place] [id number] Mar, [facility] [address] [place] [id number] [address] [place] [phone] Mar, Encounter for immunization Z 23 and Diabetes E11.9 [facility] [address] [id number] [address] [place] [phone] Feb, [facility] [address] [id number] [address] [place] [phone] Feb, [facility] [address] [id number] [address] [place] [phone] Jan, [facility] [address] [id number] [address] [place] [id number] Jan, [facility] [address] [id number] [address] [place] [id number] Dec, [facility] [address] [facility] [id number] [address] [place] [phone] Dec, [facility] [address] [facility] [id number] [address] [place] [phone] Dec, Unspecified arthropathy, sit e unspecified 716.90 and Diabetes mellitus type 2, uncontrolled 250.02 [facility] [address] [id number] [address] [place] [id number] Dec, [facility] [address] [facility] [id number] [address] [place] [id number] Nov, [facility] [address] [id number] [address] [place] [id number] Oct, [facility] [address] [id number] [address] [place] [id number] September, [facility] [address] [id number] [address] [place] [id number] September, [facility] [address] [facility] [id number] [address] [place] [id number] September, [facility] [address] [facility] [id number] [address] [place] [id number] September, [facility] [address] [id number] [address] [place] [address], [place] [address] 14 Aug, 2014 [facility] [address] [id number] [address] [place] [address], [place] [address] 13 Aug, 2014 [facility] [address] [id number] [address] [place] [address], [place] [id number] 18 Jul, 2014 [facility] [address] [id number] [address] [place] [address], [place] [address] 18 Jul, 2014 [facility] [address] [id number] [address] [place] [address], [place] [address] 16 Jul, 2014 [facility] [address] [id number] [address] [place] [address], [place] [address] 16 Jul, 2014 [facility] [address] [id number] [address] [place] [address], [place] [address] 16 Jul, 2014 [facility] [address] [id number] [address] [place] [address], [place] [address] 16 Jul, 2014 [facility] [address] [id number] [address] [place] [address], [place] [address] 16 Jul, 2014 [facility] [address] [id number] [address] [place] [address], [place] [address] 16 Jul, 2014 [facility] [address] [id number] [address] [place] [address], [place] [address] 16 Jul, 2014 [facility] [address] [id number] [address] [place] [address], [place] [address] 13 Jul, 2014 [facility] [address] [id number] [address] [place] [address], [place] [address] 13 Jul, 2014 [facility] [address] [id number] [address] [place] [address], [place] [id number] 09 Jul, 2014 [facility] [address] [id number] [address] [place] [address], [place] [address] 09 Jul, 2014 [facility] [address] [id number] [address] [place] [id number] 17 Jul, 2014 [facility] [address] [id number] [address] [place] [address], [place] [id number] 17 Jul, 2014 [facility] [address] [id number] [address] [place] [address], [place] [address] 16 Jul, 2014 [facility] [address] [id number] [address] [place] [address], [place] [address] 16 Jul, 2014 [facility] [address] [id number] [address] [place] [address], [place] [address] 16 Jul, 2014 [facility] [address] [id number] [address] [place] [address], [place] [address] 16 Jul, 2014 [facility] [address] [id number] [address] [place] [address], [place] [address] 16 Jul, 2014 [facility] [address] [id number] [address] [place] [address], [place] [address] 16 Jul, 2014 [facility] [facility] [address] [id number] [address] [place] [address], [place] [address] 16 Jul, 2014 [facility] [address] [id number] [address] [place] [address], [place] [address] 16 Jul, 2014 [facility] [address] [id number] [address] [place] [id number] 16 Jul, 2014 [facility] [address] [id number] [address] [place] [address], [place] [address] 16 Jul, 2014 [facility] [address] [id number] [address] [place] [id number] 16 Jul, 2014 [facility] [address] [id number] [address] [place] [address], [place] [address] 16 Jul, 2014 [facility] [address] [id number] [address] [place] [id number] 16 Jul, 2014 [facility] [address] [id number] [address] [place] [id number] Jul, [facility] [address] [id number] [address] [place] [address], [place] [address] May, [facility] [address] [id number] [address] [place] [address], [place] [address] May, [facility] [address] [id number] [address] [place] [address], [place] [address] May, [facility] [address] [id number] [address] [place] [address], [place] [address] May, [facility] [address] [id number] [address] [place] [address], [place] [address] May, [facility] [address] [id number] [address] [place] [address], [place] [address] May, [facility] [address] [id number] [address] [place] [address], [place] [address] May, [facility] [address] [id number] [address] [place] [address], [place] [address] May, [facility] [address] [id number] [address] [place] [address], [place] [address] May, [facility] [address] [id number] [address] [place] [address], [place] [address] May, [facility] [address] [id number] [address] [place] [address], [place] [address] Apr, [facility] [address] [id number] [address] [place] [address], [place] [address] Apr, [facility] [address] [id number] [address] [place] [address], [place] [address] Apr, [facility] [address] [id number] [address] [place] [address], [place] [address] Apr, [facility] [address] [id number] [address] [place] [address], [place] [address] Apr, [facility] [address] [id number] [address] [place] [address], [place] [address] Apr, [facility] [address] [id number] [address] [place] [address], [place] [address] Mar, [facility] [address] [id number] [address] [place] [address], [place] [address] Mar, [facility] [address] [id number] [address] [place] [address], [place] [address] Mar, [facility] [address] [id number] [address] [place] [address], [place] [address] Mar, [facility] [address] [id number] [address] [place] [address], [place] [address] Mar, [facility] [address] [id number] [address] [place] [address], [place] [address] Mar, [facility] [address] [id number] [address] [place] [address], [place] [address] Mar, [facility] [address] [id number] [address] [place] [address], [place] [address] Mar, [facility] [address] [id number] [address] [place] [address], [place] [address] Mar, [facility] [address] [id number] [address] [place] [address], [place] [address] Mar, [facility] [address] [id number] [address] [place] [address], [place] [address] Mar, [facility] [address] [id number] [address] [place] [address], [place] [address] Feb, [facility] [address] [id number] [address] [place] [address], [place] [address] Feb, [facility] [address] [id number] [address] [place] [address], [place] [address] Feb, [facility] [address] [id number] [address] [place] [address], [place] [address] Feb, [facility] [address] [id number] [address] [place] [address], [place] [address] Feb, [facility] [address] [id number] [address] [place] [address], [place] [address] Feb, [facility] [address] [id number] [address] [place] [address], [place] [address] Feb, [facility] [address] [id number] [address] [place] [address], [place] [address] Feb, [facility] [address] [id number] [address] [place] [address], [place] [address] Feb, [facility] [address] [id number] [address] [place] [address], [place] [address] Feb, [facility] [address] [id number] [address] [place] [address], [place] [address] Jan, [facility] [address] [id number] [address] [place] [address], [place] [address] 22 Jan, 2014 [facility] [address] [id number] [address] [place] [address], [place] [address] 16 Jan, 2014 [facility] [address] [id number] [address] [place] [address], [place] [address] 16 Jan, 2014 [facility] [address] [id number] [address] [place] [address], [place] [address] 12 Jan, 2014 [facility] [address] [id number] [address] [place] [address], [place] [address] Jan, [facility] [address] [id number] [address] [place] [address], [place] [address] Jan, [facility] [address] [id number] [address] [place] [address], [place] [address] Dec, [facility] [address] [id number] [address] [place] [address], [place] [address] Dec, [facility] [address] [id number] [address] [place] [address], [place] [address] Dec, [facility] [address] [id number] [address] [place] [address], [place] [address] Dec, [facility] [address] [id number] [address] [place] [address], [place] [address] Dec, [facility] [address] [id number] [address] [place] [address], [place] [address] Dec, [facility] [address] [id number] [address] [place] [address], [place] [address] Dec, [facility] [address] [id number] [address] [place] [address], [place] [address] Dec, [facility] [address] [id number] [address] [place] [address], [place] [address] Oct, [facility] [address] [id number] [address] [place] [address], [place] [address] Oct, [facility] [address] [id number] [address] [place] [address], [place] [address] September, [facility] [address] [id number] [address] [place] [address], [place] [address] September, [facility] [address] [id number] [address] [place] [address], [place] [address] September, [facility] [address] [id number] [address] [place] [address], [place] [address] September, [facility] [address] [id number] [address] [place] [address], [place] [address] September, [facility] [address] [id number] [address] [place] [address], [place] [address] September, [facility] [address] [id number] [address] [place] [address], [place] [address] September, [facility] [address] [id number] [address] [place] [address], [place] [address] Aug, [facility] [address] [id number] [address] [place] [address], [place] [address] 15 Aug, 2013 [facility] [address] [id number] [address] [place] [address], [place] [address] Jul, [facility] [address] [id number] [address] [place] [address], [place] [address] Jul, [facility] [address] [id number] [address] [place] [address], [place] [address] Jul, [facility] [address] [id number] [address] [place] [address], [place] [address] Jul, [facility] [address] [id number] [address] [place] [address], [place] [address] Jul, [facility] [address] [id number] [address] [place] [address], [place] [address] Jul, [facility] [address] [id number] [address] [place] [address], [place] [address] Jul, [facility] [address] [id number] [address] [place] [address], [place] [address] Jul, [facility] [address] [id number] [address] [place] [address], [place] [address] May, [facility] [address] [id number] [address] [place] [address], [place] [address] May, [facility] [address] [id number] [address] [place] [address], [place] [address] May, [facility] [address] [id number] [address] [place] [address], [place] [address] May, [facility] [address] [id number] [address] [place] [address], [place] [address] Apr, [facility] [address] [id number] [address] [place] [address], [place] [address] Mar, [facility] [address] [id number] [address] [place] [address] Mar, [facility] [address] [id number] [address] [place] [address], [place] [address] Mar, [facility] [address] [id number] [address] [place] [id number] Mar, [facility] [address] [id number] [address] [place] [address], [place] [address] Mar, [facility] [address] [id number] [address] [place] [id number] Mar, [facility] [address] [id number] [address] [place] [address], [place] [address] Mar, [facility] [address] [id number] [address] [place] [id number] 18 Mar, 2013 [facility] [address] [id number] [address] [place] [address] Mar, [facility] [address] [id number] [address] [place] [address] Mar, [facility] [address] [id number] [address] [place] [id number] 04 Mar, 2013 [facility] [address] [id number] [address] [place] [id number] 04 Mar, 2013 [facility] [address] [id number] [address] [place] [id number] 15 Feb, 2013 [facility] [address] [id number] [address] [place] [id number] 15 Feb, 2013 [facility] [address] [id number] [address] [place] [id number] 11 Feb, 2013 [facility] [address] [id number] [address] [place] [id number] 11 Feb, 2013 [facility] [address] [id number] [address] [place] [id number] 07 Feb, 2013 [facility] [address] [id number] [address] [place] [address], [place] [address] Jan, [facility] [address] [id number] [address] [place] [address], [place] [address] Dec, [facility] [address] [id number] [address] [place] [address], [place] [address] Dec, [facility] [address] [id number] [address] [place] [address], [place] [address] Dec, [facility] [address] [id number] [address] [place] [address], [place] [address] Nov, [facility] [address] [id number] [address] [place] [address], [place] [address] Nov, [facility] [address] [id number] [address] [place] [address], [place] [address] Nov, [facility] [address] [id number] [address] [place] [address], [place] [address] Oct, [facility] [address] [id number] [address] [place] [address], [place] [address] Oct, [facility] [address] [id number] [address] [place] [address], [place] [address] Oct, [facility] [address] [id number] [address] [place] [address], [place] [address] September, [facility] [address] [id number] [address] [place] [address], [place] [address] September, [facility] [address] [id number] [address] [place] [address], [place] [address] September, [facility] [address] [id number] [address] [place] [address], [place] [address] September, [facility] [address] [id number] [address] [place] [address], [place] [address] September, [facility] [address] [id number] [address] [place] [address], [place] [address] Aug, [facility] [address] [id number] [address] [place] [address], [place] [address] Aug, [facility] [address] [id number] [address] [place] [address], [place] [address] Aug, [facility] [address] [id number] [address] [place] [address], [place] [address] Jul, [facility] [address] [id number] [address] [place] [address], [place] [address] Jul, [facility] [address] [id number] [address] [place] [address], [place] [address] Jul, [facility] [address] [id number] [address] [place] [address], [place] [address] Jul, [facility] [address] [id number] [address] [place] [address], [place] [address] Jul, [facility] [address] [id number] [address] [place] [address], [place] [address] Jul, [facility] [address] [id number] [address] [place] [address], [place] [address] Jul, [facility] [address] [id number] [address] [place] [address], [place] [address] May, [facility] [address] [id number] [address] [place] [address], [place] [address] May, [facility] [address] [id number] [address] [place] [address], [place] [address] May, [facility] [address] [id number] [address] [place] [address], [place] [address] Apr, [facility] [address] [id number] [address] [place] [address], [place] [address] Apr, [facility] [address] [id number] [address] [place] [address], [place] [address] Apr, [facility] [address] [id number] [address] [place] [address], [place] [address] Apr, [facility] [address] [id number] [address] [place] [address], [place] [address] Apr, [facility] [address] [id number] [address] [place] [address], [place] [address] Mar, [facility] [address] [id number] [address] [place] [address], [place] [address] Mar, [facility] [address] [id number] [address] [place] [address], [place] [address] Mar, [facility] [address] [id number] [address] [place] [address], [place] [address] Mar, [facility] [address] [id number] [address] [place] [address], [place] [address] Feb, [facility] [address] [id number] [address] [place] [address], [place] [address] Feb, [facility] [address] [id number] [address] [place] [address], [place] [address] Feb, [facility] [address] [id number] [address] [place] [address], [place] [address] Feb, [facility] [address] [id number] [address] [place] [address], [place] [address] Feb, [facility] [address] [id number] [address] [place] [address], [place] [address] Jan, [facility] [address] [id number] [address] [place] [address], [place] [address] Dec, [facility] [address] [id number] [address] [place] [address], [place] [address] Dec, [facility] [address] [id number] [address] [place] [address], [place] [address] Dec, [facility] [address] [id number] [address] [place] [address], [place] [address] Nov, [facility] [address] [id number] [address] [place] [address], [place] [address] Nov, [facility] [address] [id number] [address] [place] [address], [place] [address] Nov, [facility] [address] [id number] [address] [place] [address], [place] [address] Oct, [facility] [address] [id number] [address] [place] [address], [place] [address] Oct, [facility] [address] [id number] [address] [place] [address], [place] [address] Oct, [facility] [address] [id number] [address] [place] [address], [place] [address] Oct, [facility] [address] [id number] [address] [place] [address], [place] [address] September, [facility] [address] [id number] [address] [place] [address], [place] [address] September, [facility] [address] [id number] [address] [place] [address], [place] [address] Aug, [facility] [address] [id number] [address] [place] [address], [place] [address] Aug, [facility] [address] [id number] [address] [place] [address], [place] [address] Aug, [facility] [address] [id number] [address] [place] [address], [place] [address] Aug, [facility] [address] [id number] [address] [place] [address], [place] [address] Aug, [facility] [address] [id number] [address] [place] [address], [place] [address] Aug, [facility] [address] [id number] [address] [place] [address], [place] [address] Aug, [facility] [address] [id number] [address] [place] [address], [place] [address] Jul, [facility] [address] [id number] [address] [place] [address], [place] [address] Jul, [facility] [address] [id number] [address] [place] [address], [place] [address] Jul, [facility] [address] [id number] [address] [place] [address], [place] [address] May, [facility] [address] [id number] [address] [place] [address], [place] [address] May, [facility] [address] [id number] [address] [place] [address], [place] [address] May, [facility] [address] [id number] [address] [place] [address], [place] [address] Apr, [facility] [address] [id number] [address] [place] [address], [place] [address] Apr, [facility] [address] [id number] [address] [place] [address], [place] [address] Mar, [facility] [address] [id number] [address] [place] [address], [place] [address] Mar, [facility] [address] [id number] [address] [place] [address], [place] [address] Mar, [facility] [address] [id number] [address] [place] [id number] Mar, [facility] [address] [id number] [address] [place] [id number] Mar, [facility] [address] [id number] [address] [place] [address], [place] [address] Mar, [facility] [address] [id number] [address] [place] [address], [place] [address] Feb, [facility] [address] [id number] [address] [place] [address], [place] [address] Feb, [facility] [address] [id number] [address] [place] [address] 14 Feb, 2011 IMMUNIZATIONS No Known Immunizations [...]
--- OUTSIDE RECORDS SUMMARY | 2020-01-03 07:48 | XMS REPORT ---
Author Author Tra SILVERIO Organization [facility] Address [address] [place] [address] Care Team Providers Care Mobile Paramedical Examiner Name Role Phone FERNY SILVERIO Unavailable PROBLEMS Type Condition ICD9-CM Code FQS74-DN Code Onset Dates Condition S tatus SNOMED Code Problem Insulin long-term use Z79.4 Active 947527829 Problem Hypertension I10 Active 5967023 3 Problem Diabetes E11.9 Active 89482724 Problem Hypoxia R09.02 Active 979599648 Problem Anxiety F41.9 Active 45059897 Problem Port catheter in place Z95.828 Active 866107125 Problem Pressure ulcer of other site, stage 3 L89.893 Active 234594352 Problem COPD (chronic obstructive pulmonary disease) J44.9 Active 20524113 Problem Type 2 diabetes mellitus wit h diabetic peripheral angiopathy without gangrene E11.51 Active 337449501 Problem Back pain M54.9 Active 126706133 Problem PAD (peripheral artery disease) I73.9 Active 810268593 Problem Lumbar radiculopathy, chronic M54.16 Active 319970566 Problem Recurrent major depressive disorder, in full remission F33.42 Active 762151405 Problem residential current use of insulin Z79.4 Active 347206288 ALLERGIES No Information ENCOUNTERS Encounter Location Date Diagnosis [facility] [address] [facility] [id number] [address] [place] [address] Dec, [facility] [address] [facility] [id number] [address] [place] [address] Nov, [facility] [address] [facility] [id number] [address] [place] [address] Nov, Back pain M54.9 [facility] [address] [facility] [id number] [address] [place] [address] Nov, Anxiety F41.9 [facility] [address] [id number] [address] [place] [address] Nov, [facility] [address] [id number] [address] [place] [address] Oct, Back pain M54.9 [facility] [address] [id number] [address] [place] [address] Oct, [facility] [address] [id number] [address] [place] [address] Oct, [facility] [address] [id number] [address] [place] [address] Oct, [facility] [address] [id number] [address] [place] [address] September, Back pain M54.9 [facility] [address] [id number] [address] [place] [address] September, [facility] [address] [id number] [address] [place] [address] September, [facility] [address] [id number] [address] [place] [address] September, [facility] [address] [id number] [address] [place] [address] Aug, Back pain M54.9 [facility] [address] [id number] [address] [place] [address] Aug, Anxiety F41.9 [facility] [address] [id number] [address] [place] [address] Aug, [facility] [address] [id number] [address] [place] [address] Aug, Pressure ulcer of other site , stage 3 L89.893 and COPD (chronic obstructive pulmonary disease) J44.9 [facility] [address] [id number] [address] [place] [address] Aug, History of smoking Z87.891 [facility] [address] [id number] [address] [place] [address] Jul, Type 2 diabetes mellitus wit h diabetic peripheral angiopathy without gangrene E11.51 [facility] [address] [id number] [address] [place] [address] Jul, Back pain M54.9 [facility] [address] [id number] [address] [place] [address] Jul, Anxiety F41.9 [facility] [address] [id number] [address] [place] [address] Jul, [facility] [address] [id number] [address] [place] [address] Jul, Back pain M54.9 [facility] [address] [id number] [address] [place] [address] Jul, Back pain M54.9 [facility] [address] [id number] [address] [place] [address] Jul, Lumbar radiculopathy, chroni c M54.16 ; Hypertension I10 and Type 2 diabetes mellitus with diabetic peripheral angiopathy without gangrene E11.51 [facility] [address] [id number] [address] [place] [address] Jul, Back pain M54.9 [facility] [address] [id number] [address] [place] [address] Jul, Back pain M54.9 and Anxiety F41.9 [facility] [address] [id number] [address] [place] [address] Jul, [facility] [address] [id number] [address] [place] [address] May, Back pain M54.9 and Anxiety F41.9 [facility] [address] [id number] [address] [place] [address] May, [facility] [address] [id number] [address] [place] [address] Apr, Radiculopathy of lumbar rhiannon on M54.16 ; Back pain M54.9 and Anxiety F41.9 [facility] [address] [id number] [address] [place] [address] Apr, Diabetes E11.9 ; Muscle spas m M62.838 and Lumbar radiculopathy, chronic M54.16 [facility] [address] [id number] [address] [place] [address] 17 Apr, 2018 [facility] [address] [id number] [address] [place] [address] Apr, [facility] [address] [id number] [address] [place] [address] Mar, Back pain M54.9 and Anxiety F41.9 [facility] [address] [id number] [address] [place] [address] Mar, [facility] [address] [id number] [address] [place] [address] Mar, [facility] [address] [id number] [address] [place] [address] Mar, [facility] [address] [id number] [address] [place] [address] Mar, Encounter for immunization Z 23 [facility] [address] [id number] [address] [place] [address] Feb, Back pain M54.9 and Anxiety F41.9 [facility] [address] [id number] [address] [place] [address] 04 Feb, 2018 Back pain M54.9 and Anxiety F41.9 [facility] [address] [id number] [address] [place] [address] 06 Jan, 2018 Back pain M54.9 and Anxiety F41.9 [facility] [address] [id number] [address] [place] [address] Jan, [facility] [address] [id number] [address] [place] [address] Dec, [facility] [address] [facility] [id number] [address] [place] [address] Dec, Back pain M54.9 and Anxiety F41.9 [facility] [address] [facility] [id number] [address] [place] [address] Dec, Diabetes E11.9 ; Type 2 diab etes mellitus with diabetic peripheral angiopathy without gangrene E11.51 ; Lumbar radiculopathy, chronic M54.16 ; COPD (chronic obstructive pulmonary disease) J44.9 and Anxiety F41.9 [facility] [address] [facility] [id number] [address] [place] [address] Dec, Back pain M54.9 and Anxiety F41.9 [place] [address] [facility] [id number] [address] [place] [address] Nov, Back pain M54.9 and Anxiety F41.9 [facility] [address] [facility] [id number] [address] [place] [address] Oct, [facility] [address] [facility] [id number] [address] [place] [address] Oct, Back pain M54.9 and Anxiety F41.9 [facility] [address] [facility] [id number] [address] [place] [address] September, Anxiety F41.9 and Back pain M54.9 [facility] [address] [facility] [id number] [address] [place] [address] September, Diabetes E11.9 ; Hypertensio n I10 ; COPD (chronic obstructive pulmonary disease) J44.9 and Lumbar radiculopathy, chronic M54.16 [facility] [address] [facility] [id number] [address] [place] [address] September, Anxiety F41.9 [facility] [address] [facility] [id number] [address] [place] [address] Aug, [facility] [address] [facility] [id number] [address] [place] [address] Aug, [facility] [address] [facility] [id number] [address] [place] [address] Aug, Anxiety F41.9 and Back pain M54.9 [facility] [address] 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 [id number] [address] [place] [address] Jul, Back pain M54.9 [place] [id number] [facility] [id number] [address] [place] [address] Jul, [facility] [address] [facility] [id number] [address] [place] [address] Jul, Anxiety F41.9 and Back pain M54.9 [facility] [address] [facility] [id number] [address] [place] [address] Jul, Diabetes E11.9 [facility] [address] [facility] [id number] [address] [place] [address] May, [facility] [address] [facility] [id number] [address] [place] [phone] May, Diabetes E11.9 ; Anxiety F41 .9 ; Back pain M54.9 and COPD (chronic obstructive pulmonary disease) J44.9 [facility] [address] [id number] [address] [place] [address] May, Back pain M54.9 [facility] [address] [id number] [address] [place] [address] May, [facility] [address] [id number] [address] [place] [address] Apr, Back pain M54.9 [facility] [address] [id number] [address] [place] [address] Mar, Back pain M54.9 [facility] [address] [id number] [address] [place] [phone] Mar, [facility] [address] [id number] [address] [place] [address] 16 Mar, 2017 [facility] [address] [id number] [address] [place] [address] 14 Mar, 2017 Radiculopathy of lumbar rhiannon on M54.16 [facility] [address] [id number] [address] [place] [address] 13 Mar, 2017 [facility] [address] [id number] [address] [place] [address] 07 Mar, 2017 Encounter for immunization Z 23 and Lumbar radiculopathy, chronic M54.16 [facility] [address] [id number] [address] [place] [address] Mar, Back pain M54.9 and Anxiety F41.9 [facility] [address] [id number] [address] [place] [address] 10 Feb, 2017 Acute bilateral low back boy n with left-sided sciatica M54.42 and Acute bilateral low back pain with right-sided sciatica M54.41 [facility] [address] [id number] [address] [place] [address] Feb, [facility] [address] [id number] [address] [place] [address] Feb, Back pain M54.9 [facility] [address] [id number] [address] [place] [address] 05 Jan, 2017 Back pain M54.9 and Anxiety F41.9 [facility] [address] [id number] [address] [place] [address] 05 Jan, 2017 Diabetes E11.9 [facility] [address] [id number] [address] [place] [address] Dec, Diabetes E11.9 ; Back pain M 54.9 ; Anxiety F41.9 and Insulin long- term use Z79.4 [facility] [address] [id number] [address] [place] [address] Dec, Anxiety F41.9 [facility] [address] [id number] [address] [place] [address] Dec, Back pain M54.9 [facility] [address] [id number] [address] [place] [address] Nov, Back pain M54.9 [facility] [address] [id number] [address] [place] [address] Oct, Back pain M54.9 and Anxiety F41.9 [facility] [address] [id number] [address] [place] [address] September, Back pain M54.9 [facility] [address] [id number] [address] [place] [address] September, Back pain M54.9 and Anxiety F41.9 [facility] [address] [id number] [address] [place] [address] Aug, Diabetes E11.9 ; Anxiety F41 .9 ; Back pain M54.9 and PAD (peripheral artery disease) I73.9 [facility] [address] [id number] [address] [place] [address] Aug, Anxiety F41.9 [facility] [address] [id number] [address] [place] [address] Aug, Back pain M54.9 [facility] [address] [id number] [address] [place] [address] Jul, Back pain M54.9 [facility] [address] [id number] [address] [place] [address] Jul, Back pain M54.9 [facility] [address] [id number] [address] [place] [address] Jul, Back pain M54.9 [facility] [address] [id number] [address] [place] [address] Jul, Dorsalgia M54.9 [facility] [address] [id number] [address] [place] [address] Jul, [facility] [address] [id number] [address] [place] [address] May, Back pain M54.9 [facility] [address] [id number] [address] [place] [address] May, Diabetes E11.9 ; Anxiety F41 .9 ; Port catheter in place Z95.828 ; Encounter for immunization Z23 and Insulin long-term use Z79.4 [facility] [address] [id number] [address] [place] [address] Apr, Back pain M54.9 [facility] [address] [id number] [address] [place] [address] Apr, Back pain M54.9 [facility] [address] [id number] [address] [place] [address] Apr, [facility] [address] [id number] [address] [place] [address] Apr, Back pain M54.9 [facility] [address] [id number] [address] [place] [address] Mar, COPD (chronic obstructive pu lmonary disease) J44.9 [facility] [address] [id number] [address] [place] [address] Feb, [facility] [address] [id number] [address] [place] [address] 30 Jan, 2016 [facility] [address] [id number] [address] [place] [address] 20 Jan, 2016 [facility] [address] [id number] [address] [place] [address] 07 Jan, 2016 [facility] [address] [id number] [address] [place] [address] Jan, [facility] [address] [id number] [address] [place] [address] Dec, Diabetes E11.9 ; Hypoxia R09 .02 and Back pain M54.9 [facility] [address] [id number] [address] [place] [address] Dec, [facility] [address] [id number] [address] [place] [address] Nov, [facility] [address] [id number] [address] [place] [address] Oct, Anxiety F41.9 [facility] [address] [id number] [address] [place] [address] Oct, Back pain M54.9 [facility] [address] [id number] [address] [place] [address] September, Back pain M54.9 [facility] [address] [id number] [address] [place] [address] September, Diabetes E11.9 [facility] [address] [id number] [address] [place] [address] September, [facility] [address] [id number] [address] [place] [address] September, Diabetes E11.9 ; Insulin sarai g-term use Z79.4 and Back pain M54.9 [facility] [address] [id number] [address] [place] [address] Aug, Back pain M54.9 [facility] [address] [facility] [id number] [address] [place] [address] Aug, Back pain M54.9 ; Anxiety F4 1.9 and Arthropathy, unspecified M12.9 [facility] [address] [id number] [address] [place] [address] Jul, Back pain M54.9 [facility] [address] [facility] [id number] [address] [place] [address] Jul, Anxiety F41.9 [facility] [address] [facility] [id number] [address] [place] [address] Jul, Back pain M54.9 [facility] [address] [facility] [id number] [address] [place] [address] Jul, [facility] [address] [facility] [id number] [address] [place] [address] Jul, [facility] [address] [place] [id number] [address] [place] [address] May, Back pain M54.9 ; Diabetes E 11.9 ; Insulin long-term use Z79.4 ; COPD (chronic obstructive pulmonary disease) J44.9 and Hypertension I10 [facility] [address] [facility] [id number] [address] [place] [address] May, Chronic pain G89.29 [facility] [address] [facility] [id number] [address] [place] [address] Apr, [facility] [address] [place] [id number] [address] [place] [address] Apr, [facility] [address] [place] [id number] [address] [place] [address] Mar, [facility] [address] [place] [id number] [address] [place] [address] Mar, Encounter for immunization Z 23 and Diabetes E11.9 [facility] [address] [id number] [address] [place] [address] Feb, [facility] [address] [id number] [address] [place] [address] Feb, [facility] [address] [id number] [address] [place] [address] Jan, [facility] [address] [id number] [address] [place] [address] Jan, [facility] [address] [id number] [address] [place] [address] Dec, [facility] [address] [facility] [id number] [address] [place] [address] Dec, [facility] [address] [facility] [id number] [address] [place] [address] Dec, Unspecified arthropathy, sit e unspecified 716.90 and Diabetes mellitus type 2, uncontrolled 250.02 [facility] [address] [id number] [address] [place] [address] Dec, [facility] [address] [facility] [id number] [address] [place] [address] Nov, [facility] [address] [id number] [address] [place] [address] Oct, [facility] [address] [id number] [address] [place] [address] September, [facility] [address] [id number] [address] [place] [address] September, [facility] [address] [facility] [id number] [address] [place] [address] September, [facility] [address] [facility] [id number] [address] [place] [address] September, [facility] [address] [id number] [address] [place] [address], [place] [address] 14 Aug, 2014 [facility] [address] [id number] [address] [place] [address], [place] [address] 13 Aug, 2014 [facility] [address] [id number] [address] [place] [address], [place] [address] 18 Jul, 2014 [facility] [address] [id number] [address] [place] [address], [place] [address] 18 Jul, 2014 [facility] [address] [id number] [address] [place] [address], [place] [address] 16 Jul, 2014 [facility] [address] [id number] [address] [place] [address], [place] [address] 16 Jul, 2014 [facility] [address] [id number] [address] [place] [address], [place] [address] 16 Jul, 2014 [facility] [address] [id number] [address] [place] [address], [place] [address] 16 Jul, 2014 [facility] [address] [id number] [address] [place] [address], [place] [address] 16 Jul, 2014 [facility] [address] [id number] [address] [place] [address], [place] [address] 16 Jul, 2014 [facility] [address] [id number] [address] [place] [address], [place] [address] 16 Jul, 2014 [facility] [address] [id number] [address] [place] [address], [place] [address] 13 Jul, 2014 [facility] [address] [id number] [address] [place] [address], [place] [address] 13 Jul, 2014 [facility] [address] [id number] [address] [place] [address], [place] [address] 09 Jul, 2014 [facility] [address] [id number] [address] [place] [address], [place] [address] 09 Jul, 2014 [facility] [address] [id number] [address] [place] [id number] 17 Jul, 2014 [facility] [address] [id number] [address] [place] [address], [place] [address] 17 Jul, 2014 [facility] [address] [id number] [address] [place] [address], [place] [address] 16 Jul, 2014 [facility] [address] [id number] [address] [place] [address], [place] [address] 16 Jul, 2014 [facility] [address] [id number] [address] [place] [address], [place] [address] 16 Jul, 2014 [facility] [address] [id number] [address] [place] [address], [place] [address] 16 Jul, 2014 [facility] [address] [id number] [address] [place] [address], [place] [address] 16 Jul, 2014 [facility] [address] [id number] [address] [place] [address], [place] [address] 16 Jul, 2014 [facility] [address] [id number] [address] [place] [address], [place] [address] 16 Jul, 2014 [facility] [address] [id number] [address] [place] [address], [place] [address] 16 Jul, 2014 [facility] [address] [id number] [address] [place] [id number] 16 Jul, 2014 [facility] [address] [id number] [address] [place] [address], [place] [address] 16 Jul, 2014 [facility] [address] [id number] [address] [place] [id number] 16 Jul, 2014 [facility] [address] [id number] [address] [place] [address], [place] [address] 16 Jul, 2014 [facility] [address] [id number] [address] [place] [id number] 16 Jul, 2014 [facility] [address] [id number] [address] [place] [id number] Jul, [facility] [address] [id number] [address] [place] [address], [place] [address] May, [facility] [address] [id number] [address] [place] [address], [place] [address] May, [facility] [address] [id number] [address] [place] [address], [place] [address] May, [facility] [address] [id number] [address] [place] [address], [place] [address] May, [facility] [address] [id number] [address] [place] [address], [place] [address] May, [facility] [address] [id number] [address] [place] [address], [place] [address] May, [facility] [address] [id number] [address] [place] [address], [place] [address] May, [facility] [address] [id number] [address] [place] [address], [place] [address] May, [facility] [address] [id number] [address] [place] [address], [place] [address] May, [facility] [address] [id number] [address] [place] [address], [place] [address] May, [facility] [address] [id number] [address] [place] [address], [place] [address] Apr, [facility] [address] [id number] [address] [place] [address], [place] [address] Apr, [facility] [address] [id number] [address] [place] [address], [place] [address] Apr, [facility] [address] [id number] [address] [place] [address], [place] [address] Apr, [facility] [address] [id number] [address] [place] [address], [place] [address] Apr, [facility] [address] [id number] [address] [place] [address], [place] [address] Apr, [facility] [address] [id number] [address] [place] [address], [place] [address] Mar, [facility] [address] [id number] [address] [place] [address], [place] [address] Mar, [facility] [address] [id number] [address] [place] [address], [place] [address] Mar, [facility] [address] [id number] [address] [place] [address], [place] [address] Mar, [facility] [address] [id number] [address] [place] [address], [place] [address] Mar, [facility] [address] [id number] [address] [place] [address], [place] [address] Mar, [facility] [address] [id number] [address] [place] [address], [place] [address] Mar, [facility] [address] [id number] [address] [place] [address], [place] [address] Mar, [facility] [address] [id number] [address] [place] [address], [place] [address] Mar, [facility] [address] [id number] [address] [place] [address], [place] [address] Mar, [facility] [address] [id number] [address] [place] [address], [place] [address] Mar, [facility] [address] [id number] [address] [place] [address], [place] [address] Feb, [facility] [address] [id number] [address] [place] [address], [place] [address] Feb, [facility] [address] [id number] [address] [place] [address], [place] [address] Feb, [facility] [address] [id number] [address] [place] [address], [place] [address] Feb, [facility] [address] [id number] [address] [place] [address], [place] [address] Feb, [facility] [address] [id number] [address] [place] [address], [place] [address] Feb, [facility] [address] [id number] [address] [place] [address], [place] [address] Feb, [facility] [address] [id number] [address] [place] [address], [place] [address] Feb, [facility] [address] [id number] [address] [place] [address], [place] [address] Feb, [facility] [address] [id number] [address] [place] [address], [place] [address] Feb, [facility] [address] [id number] [address] [place] [address], [place] [address] Jan, [facility] [address] [id number] [address] [place] [address], [place] [address] 22 Jan, 2014 [facility] [address] [id number] [address] [place] [address], [place] [address] 16 Jan, 2014 [facility] [address] [id number] [address] [place] [address], [place] [address] 16 Jan, 2014 [facility] [address] [id number] [address] [place] [address], [place] [address] 12 Jan, 2014 [facility] [address] [id number] [address] [place] [address], [place] [address] Jan, [facility] [address] [id number] [address] [place] [address], [place] [address] Jan, [facility] [address] [id number] [address] [place] [address], [place] [address] Dec, [facility] [address] [id number] [address] [place] [address], [place] [address] Dec, [facility] [address] [id number] [address] [place] [address], [place] [address] Dec, [facility] [address] [id number] [address] [place] [address], [place] [address] Dec, [facility] [address] [id number] [address] [place] [address], [place] [address] Dec, [facility] [address] [id number] [address] [place] [address], [place] [address] Dec, [facility] [address] [id number] [address] [place] [address], [place] [address] Dec, [facility] [address] [id number] [address] [place] [address], [place] [address] Dec, [facility] [address] [id number] [address] [place] [address], [place] [address] Oct, [facility] [address] [id number] [address] [place] [address], [place] [address] Oct, [facility] [address] [id number] [address] [place] [address], [place] [address] September, [facility] [address] [id number] [address] [place] [address], [place] [address] September, [facility] [address] [id number] [address] [place] [address], [place] [address] September, [facility] [address] [id number] [address] [place] [address], [place] [address] September, [facility] [address] [id number] [address] [place] [address], [place] [address] September, [facility] [address] [id number] [address] [place] [address], [place] [address] September, [facility] [address] [id number] [address] [place] [address], [place] [address] September, [facility] [address] [id number] [address] [place] [address], [place] [address] Aug, [facility] [address] [id number] [address] [place] [address], [place] [address] 15 Aug, 2013 [facility] [address] [id number] [address] [place] [address], [place] [address] Jul, [facility] [address] [id number] [address] [place] [address], [place] [address] Jul, [facility] [address] [id number] [address] [place] [address], [place] [address] Jul, [facility] [address] [id number] [address] [place] [address], [place] [address] Jul, [facility] [address] [id number] [address] [place] [address], [place] [address] Jul, [facility] [address] [id number] [address] [place] [address], [place] [address] Jul, [facility] [address] [id number] [address] [place] [address], [place] [address] Jul, [facility] [address] [id number] [address] [place] [address], [place] [address] Jul, [facility] [address] [id number] [address] [place] [address], [place] [address] May, [facility] [address] [id number] [address] [place] [address], [place] [address] May, [facility] [address] [id number] [address] [place] [address], [place] [address] May, [facility] [address] [id number] [address] [place] [address], [place] [address] May, [facility] [address] [id number] [address] [place] [address], [place] [address] Apr, [facility] [address] [id number] [address] [place] [address], [place] [address] Mar, [facility] [address] [id number] [address] [place] [address] Mar, [facility] [address] [id number] [address] [place] [address], [place] [address] Mar, [facility] [address] [id number] [address] [place] [address] Mar, [facility] [address] [id number] [address] [place] [address], [place] [address] Mar, [facility] [address] [id number] [address] [place] [address] Mar, [facility] [address] [id number] [address] [place] [address], [place] [address] Mar, [facility] [address] [id number] [address] [place] [id number] 18 Mar, 2013 [facility] [address] [id number] [address] [place] [address] Mar, [facility] [address] [id number] [address] [place] [address] Mar, [facility] [address] [id number] [address] [place] [address] 04 Mar, 2013 [facility] [address] [id number] [address] [place] [id number] 04 Mar, 2013 [facility] [address] [id number] [address] [place] [address] 15 Feb, 2013 [facility] [address] [id number] [address] [place] [address] 15 Feb, 2013 [facility] [address] [id number] [address] [place] [id number] 11 Feb, 2013 [facility] [address] [id number] [address] [place] [address] 11 Feb, 2013 [facility] [address] [id number] [address] [place] [id number] 07 Feb, 2013 [facility] [address] [id number] [address] [place] [address], [place] [address] Jan, [facility] [address] [id number] [address] [place] [address], [place] [address] Dec, [facility] [address] [id number] [address] [place] [address], [place] [address] Dec, [facility] [address] [id number] [address] [place] [address], [place] [address] Dec, [facility] [address] [id number] [address] [place] [address], [place] [address] Nov, [facility] [address] [id number] [address] [place] [address], [place] [address] Nov, [facility] [address] [id number] [address] [place] [address], [place] [address] Nov, [facility] [address] [id number] [address] [place] [address], [place] [address] Oct, [facility] [address] [id number] [address] [place] [address], [place] [address] Oct, [facility] [address] [id number] [address] [place] [address], [place] [address] Oct, [facility] [address] [id number] [address] [place] [address], [place] [address] September, [facility] [address] [id number] [address] [place] [address], [place] [address] September, [facility] [address] [id number] [address] [place] [address], [place] [address] September, [facility] [address] [id number] [address] [place] [address], [place] [address] September, [facility] [address] [id number] [address] [place] [address], [place] [address] September, [facility] [address] [id number] [address] [place] [address], [place] [address] Aug, [facility] [address] [id number] [address] [place] [address], [place] [address] Aug, [facility] [address] [id number] [address] [place] [address], [place] [address] Aug, [facility] [address] [id number] [address] [place] [address], [place] [address] Jul, [facility] [address] [id number] [address] [place] [address], [place] [address] Jul, [facility] [address] [id number] [address] [place] [address], [place] [address] Jul, [facility] [address] [id number] [address] [place] [address], [place] [address] Jul, [facility] [address] [id number] [address] [place] [address], [place] [address] Jul, [facility] [address] [id number] [address] [place] [address], [place] [address] Jul, [facility] [address] [id number] [address] [place] [address], [place] [address] Jul, [facility] [address] [id number] [address] [place] [address], [place] [address] May, [facility] [address] [id number] [address] [place] [address], [place] [address] May, [facility] [address] [id number] [address] [place] [address], [place] [address] May, [facility] [address] [id number] [address] [place] [address], [place] [address] Apr, [facility] [address] [id number] [address] [place] [address], [place] [address] Apr, [facility] [address] [id number] [address] [place] [address], [place] [address] Apr, [facility] [address] [id number] [address] [place] [address], [place] [address] Apr, [facility] [address] [id number] [address] [place] [address], [place] [address] Apr, [facility] [address] [id number] [address] [place] [address], [place] [address] Mar, [facility] [address] [id number] [address] [place] [address], [place] [address] Mar, [facility] [address] [id number] [address] [place] [address], [place] [address] Mar, [facility] [address] [id number] [address] [place] [address], [place] [address] Mar, [facility] [address] [id number] [address] [place] [address], [place] [address] Feb, [facility] [address] [id number] [address] [place] [address], [place] [address] Feb, [facility] [address] [id number] [address] [place] [address], [place] [address] Feb, [facility] [address] [id number] [address] [place] [address], [place] [address] Feb, [facility] [address] [id number] [address] [place] [address], [place] [address] Feb, [facility] [address] [id number] [address] [place] [address], [place] [address] Jan, [facility] [address] [id number] [address] [place] [address], [place] [address] Dec, [facility] [address] [id number] [address] [place] [address], [place] [address] Dec, [facility] [address] [id number] [address] [place] [address], [place] [address] Dec, [facility] [address] [id number] [address] [place] [address], [place] [address] Nov, [facility] [address] [id number] [address] [place] [address], [place] [address] Nov, [facility] [address] [id number] [address] [place] [address], [place] [address] Nov, [facility] [address] [id number] [address] [place] [address], [place] [address] Oct, [facility] [address] [id number] [address] [place] [address], [place] [address] Oct, [facility] [address] [id number] [address] [place] [address], [place] [address] Oct, [facility] [address] [id number] [address] [place] [address], [place] [address] Oct, [facility] [address] [id number] [address] [place] [address], [place] [address] September, [facility] [address] [id number] [address] [place] [address], [place] [address] September, [facility] [address] [id number] [address] [place] [address], [place] [address] Aug, [facility] [address] [id number] [address] [place] [address], [place] [address] Aug, [facility] [address] [id number] [address] [place] [address], [place] [address] Aug, [facility] [address] [id number] [address] [place] [address], [place] [address] Aug, [facility] [address] [id number] [address] [place] [address], [place] [address] Aug, [facility] [address] [id number] [address] [place] [address], [place] [address] Aug, [facility] [address] [id number] [address] [place] [address], [place] [address] Aug, [facility] [address] [id number] [address] [place] [address], [place] [address] Jul, [facility] [address] [id number] [address] [place] [address], [place] [address] Jul, [facility] [address] [id number] [address] [place] [address], [place] [address] Jul, [facility] [address] [id number] [address] [place] [address], [place] [address] May, [facility] [address] [id number] [address] [place] [address], [place] [address] May, [facility] [address] [id number] [address] [place] [address], [place] [address] May, [facility] [address] [id number] [address] [place] [address], [place] [address] Apr, [facility] [address] [id number] [address] [place] [address], [place] [address] Apr, [facility] [address] [id number] [address] [place] [address], [place] [address] Mar, [facility] [address] [id number] [address] [place] [address], [place] [address] Mar, [facility] [address] [id number] [address] [place] [address], [place] [address] Mar, [facility] [address] [id number] [address] [place] [id number] Mar, [facility] [address] [id number] [address] [place] [id number] Mar, [facility] [address] [id number] [address] [place] [address], [place] [address] Mar, [facility] [address] [id number] [address] [place] [address], [place] [address] Feb, [facility] [address] [id number] [address] [place] [address], [place] [address] Feb, [facility] [address] [id number] [address] [place] [address] 14 Feb, 2011 IMMUNIZATIONS No Known Immunizations [...]
--- OUTSIDE RECORDS SUMMARY | 2020-01-03 07:48 | XMS REPORT ---
Author Author Tra SILVERIO Organization [facility] Address [address] [place] [address] Care Team Providers Care Residential Electrician Name Role Phone FERNY SILVERIO Unavailable PROBLEMS Type Condition ICD9-CM Code LKB15-VT Code Onset Dates Condition S tatus SNOMED Code Problem Insulin long-term use Z79.4 Active 066651684 Problem Hypertension I10 Active 1787183 3 Problem Diabetes E11.9 Active 49556354 Problem Hypoxia R09.02 Active 948857270 Problem Anxiety F41.9 Active 69742723 Problem Port catheter in place Z95.828 Active 507021726 Problem Pressure ulcer of other site, stage 3 L89.893 Active 401527590 Problem COPD (chronic obstructive pulmonary disease) J44.9 Active 49138284 Problem Type 2 diabetes mellitus wit h diabetic peripheral angiopathy without gangrene E11.51 Active 273692955 Problem Back pain M54.9 Active 457963521 Problem PAD (peripheral artery disease) I73.9 Active 991474310 Problem Lumbar radiculopathy, chronic M54.16 Active 907055039 Problem Recurrent major depressive disorder, in full remission F33.42 Active 748915141 Problem [facility] current use of insulin Z79.4 Active 648854193 ALLERGIES No Information ENCOUNTERS Encounter Location Date Diagnosis [facility] [address] [facility] [id number] [address] [place] [phone] Dec, [facility] [address] [facility] [id number] [address] [place] [phone] Nov, [facility] [address] [facility] [id number] [address] [place] [phone] Nov, Back pain M54.9 [facility] [address] [facility] [id number] [address] [place] [address] Nov, Anxiety F41.9 [facility] [address] [id number] [address] [place] [address] Nov, [facility] [address] [id number] [address] [place] [address] Oct, Back pain M54.9 [facility] [address] [id number] [address] [place] [phone] Oct, [facility] [address] [id number] [address] [place] [phone] Oct, [facility] [address] [id number] [address] [place] [phone] Oct, [facility] [address] [id number] [address] [place] [address] September, Back pain M54.9 [facility] [address] [id number] [address] [place] [phone] September, [facility] [address] [id number] [address] [place] [phone] September, [facility] [address] [id number] [address] [place] [address] September, [facility] [address] [id number] [address] [place] [id number] Aug, Back pain M54.9 [facility] [address] [id number] [address] [place] [phone] Aug, Anxiety F41.9 [facility] [address] [id number] [address] [place] [address] Aug, [facility] [address] [id number] [address] [place] [phone] Aug, Pressure ulcer of other site , stage 3 L89.893 and COPD (chronic obstructive pulmonary disease) J44.9 [facility] [address] [id number] [address] [place] [address] Aug, History of smoking Z87.891 [facility] [address] [id number] [address] [place] [phone] Jul, Type 2 diabetes mellitus wit h diabetic peripheral angiopathy without gangrene E11.51 [facility] [address] [id number] [address] [place] [phone] Jul, Back pain M54.9 [facility] [address] [id number] [address] [place] [address] Jul, Anxiety F41.9 [facility] [address] [id number] [address] [place] [phone] Jul, [facility] [address] [id number] [address] [place] [phone] Jul, Back pain M54.9 [facility] [address] [id number] [address] [place] [phone] Jul, Back pain M54.9 [facility] [address] [id number] [address] [place] [address] Jul, Lumbar radiculopathy, chroni c M54.16 ; Hypertension I10 and Type 2 diabetes mellitus with diabetic peripheral angiopathy without gangrene E11.51 [facility] [address] [id number] [address] [place] [phone] Jul, Back pain M54.9 [facility] [address] [id number] [address] [place] [address] Jul, Back pain M54.9 and Anxiety F41.9 [facility] [address] [id number] [address] [place] [phone] Jul, [facility] [address] [id number] [address] [place] [address] May, Back pain M54.9 and Anxiety F41.9 [facility] [address] [id number] [address] [place] [phone] May, [facility] [address] [id number] [address] [place] [address] Apr, Radiculopathy of lumbar rhiannon on M54.16 ; Back pain M54.9 and Anxiety F41.9 [facility] [address] [id number] [address] [place] [address] Apr, Diabetes E11.9 ; Muscle spas m M62.838 and Lumbar radiculopathy, chronic M54.16 [facility] [address] [id number] [address] [place] [phone] 17 Apr, 2018 [facility] [address] [id number] [address] [place] [phone] Apr, [facility] [address] [id number] [address] [place] [address] Mar, Back pain M54.9 and Anxiety F41.9 [facility] [address] [id number] [address] [place] [phone] Mar, [facility] [address] [id number] [address] [place] [id number] Mar, [facility] [address] [id number] [address] [place] [id number] Mar, [facility] [address] [id number] [address] [place] [phone] Mar, Encounter for immunization Z 23 [facility] [address] [id number] [address] [place] [phone] Feb, Back pain M54.9 and Anxiety F41.9 [facility] [address] [id number] [address] [place] [phone] 04 Feb, 2018 Back pain M54.9 and Anxiety F41.9 [facility] [address] [id number] [address] [place] [phone] 06 Jan, 2018 Back pain M54.9 and Anxiety F41.9 [facility] [address] [id number] [address] [place] [phone] Jan, [facility] [address] [id number] [address] [place] [phone] Dec, [facility] [address] [facility] [id number] [address] [place] [id number] Dec, Back pain M54.9 and Anxiety F41.9 [facility] [address] [facility] [id number] [address] [place] [phone] Dec, Diabetes E11.9 ; Type 2 diab etes mellitus with diabetic peripheral angiopathy without gangrene E11.51 ; Lumbar radiculopathy, chronic M54.16 ; COPD (chronic obstructive pulmonary disease) J44.9 and Anxiety F41.9 [facility] [address] [facility] [id number] [address] [place] [phone] Dec, Back pain M54.9 and Anxiety F41.9 [place] [address] [facility] [id number] [address] [place] [phone] Nov, Back pain M54.9 and Anxiety F41.9 [facility] [address] [facility] [id number] [address] [place] [phone] Oct, [facility] [address] [facility] [id number] [address] [place] [phone] Oct, Back pain M54.9 and Anxiety F41.9 [facility] [address] [facility] [id number] [address] [place] [address] September, Anxiety F41.9 and Back pain M54.9 [facility] [address] [facility] [id number] [address] [place] [phone] September, Diabetes E11.9 ; Hypertensio n I10 ; COPD (chronic obstructive pulmonary disease) J44.9 and Lumbar radiculopathy, chronic M54.16 [facility] [address] [facility] [id number] [address] [place] [phone] September, Anxiety F41.9 [facility] [address] [facility] [id number] [address] [place] [phone] Aug, [facility] [address] [facility] [id number] [address] [place] [phone] Aug, [facility] [address] [facility] [id number] [address] [place] [phone] Aug, Anxiety F41.9 and Back pain M54.9 [facility] [address] [facility] [id number] [address] [place] [phone] Aug, Medicare annual wellness vis it, initial [...] 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 [facility] [address] [facility] [id number] [address] [place] [phone] Jul, Back pain M54.9 [place] [address] [facility] [id number] [address] [place] [phone] Jul, [facility] [address] [facility] [id number] [address] [place] [phone] Jul, Anxiety F41.9 and Back pain M54.9 [facility] [address] [facility] [id number] [address] [place] [phone] Jul, Diabetes E11.9 [facility] [address] [facility] [id number] [address] [place] [address] May, [facility] [address] [facility] [id number] [address] [place] [phone] May, Diabetes E11.9 ; Anxiety F41 .9 ; Back pain M54.9 and COPD (chronic obstructive pulmonary disease) J44.9 [facility] [address] [id number] [address] [place] [phone] May, Back pain M54.9 [facility] [address] [id number] [address] [place] [phone] May, [facility] [address] [id number] [address] [place] [phone] Apr, Back pain M54.9 [facility] [address] [id number] [address] [place] [phone] Mar, Back pain M54.9 [facility] [address] [id number] [address] [place] [phone] Mar, [facility] [address] [id number] [address] [place] [phone] 16 Mar, 2017 [facility] [address] [id number] [address] [place] [address] 14 Mar, 2017 Radiculopathy of lumbar rhiannon on M54.16 [facility] [address] [id number] [address] [place] [phone] 13 Mar, 2017 [facility] [address] [id number] [address] [place] [phone] 07 Mar, 2017 Encounter for immunization Z 23 and Lumbar radiculopathy, chronic M54.16 [facility] [address] [id number] [address] [place] [phone] Mar, Back pain M54.9 and Anxiety F41.9 [facility] [address] [id number] [address] [place] [phone] 10 Feb, 2017 Acute bilateral low back boy n with left-sided sciatica M54.42 and Acute bilateral low back pain with right-sided sciatica M54.41 [facility] [address] [id number] [address] [place] [phone] Feb, [facility] [address] [id number] [address] [place] [phone] Feb, Back pain M54.9 [facility] [address] [id number] [address] [place] [phone] 05 Jan, 2017 Back pain M54.9 and Anxiety F41.9 [facility] [address] [id number] [address] [place] [phone] 05 Jan, 2017 Diabetes E11.9 [facility] [address] [id number] [address] [place] [phone] Dec, Diabetes E11.9 ; Back pain M 54.9 ; Anxiety F41.9 and Insulin long- term use Z79.4 [facility] [address] [id number] [address] [place] [phone] Dec, Anxiety F41.9 [facility] [address] [id number] [address] [place] [phone] Dec, Back pain M54.9 [facility] [address] [id number] [address] [place] [phone] Nov, Back pain M54.9 [facility] [address] [id number] [address] [place] [phone] Oct, Back pain M54.9 and Anxiety F41.9 [facility] [address] [id number] [address] [place] [phone] September, Back pain M54.9 [facility] [address] [id number] [address] [place] [address] September, Back pain M54.9 and Anxiety F41.9 [facility] [address] [id number] [address] [place] [address] Aug, Diabetes E11.9 ; Anxiety F41 .9 ; Back pain M54.9 and PAD (peripheral artery disease) I73.9 [facility] [address] [id number] [address] [place] [address] Aug, Anxiety F41.9 [facility] [address] [id number] [address] [place] [address] Aug, Back pain M54.9 [facility] [address] [id number] [address] [place] [address] Jul, Back pain M54.9 [facility] [address] [id number] [address] [place] [address] Jul, Back pain M54.9 [facility] [address] [id number] [address] [place] [phone] Jul, Back pain M54.9 [facility] [address] [id number] [address] [place] [phone] Jul, Dorsalgia M54.9 [facility] [address] [id number] [address] [place] [phone] Jul, [facility] [address] [id number] [address] [place] [address] May, Back pain M54.9 [facility] [address] [id number] [address] [place] [address] May, Diabetes E11.9 ; Anxiety F41 .9 ; Port catheter in place Z95.828 ; Encounter for immunization Z23 and Insulin long-term use Z79.4 [facility] [address] [id number] [address] [place] [phone] Apr, Back pain M54.9 [facility] [address] [id number] [address] [place] [address] Apr, Back pain M54.9 [facility] [address] [id number] [address] [place] [address] Apr, [facility] [address] [id number] [address] [place] [address] Apr, Back pain M54.9 [facility] [address] [id number] [address] [place] [address] Mar, COPD (chronic obstructive pu lmonary disease) J44.9 [facility] [address] [id number] [address] [place] [phone] Feb, [facility] [address] [id number] [address] [place] [id number] 30 Jan, 2016 [facility] [address] [id number] [address] [place] [id number] 20 Jan, 2016 [facility] [address] [id number] [address] [place] [phone] 07 Jan, 2016 [facility] [address] [id number] [address] [place] [id number] Jan, [facility] [address] [id number] [address] [place] [address] Dec, Diabetes E11.9 ; Hypoxia R09 .02 and Back pain M54.9 [facility] [address] [id number] [address] [place] [phone] Dec, [facility] [address] [id number] [address] [place] [address] Nov, [facility] [address] [id number] [address] [place] [phone] Oct, Anxiety F41.9 [facility] [address] [id number] [address] [place] [phone] Oct, Back pain M54.9 [facility] [address] [id number] [address] [place] [address] September, Back pain M54.9 [facility] [address] [id number] [address] [place] [address] September, Diabetes E11.9 [facility] [address] [id number] [address] [place] [address] September, [facility] [address] [id number] [address] [place] [address] September, Diabetes E11.9 ; Insulin sarai g-term use Z79.4 and Back pain M54.9 [facility] [address] [id number] [address] [place] [id number] Aug, Back pain M54.9 [facility] [address] [facility] [id number] [address] [place] [phone] Aug, Back pain M54.9 ; Anxiety F4 1.9 and Arthropathy, unspecified M12.9 [facility] [address] [id number] [address] [place] [phone] Jul, Back pain M54.9 [facility] [address] [facility] [id number] [address] [place] [phone] Jul, Anxiety F41.9 [facility] [address] [facility] [id number] [address] [place] [phone] Jul, Back pain M54.9 [facility] [address] [facility] [id number] [address] [place] [phone] Jul, [facility] [address] [facility] [id number] [address] [place] [phone] Jul, [facility] [address] [place] [id number] [address] [place] [phone] May, Back pain M54.9 ; Diabetes E 11.9 ; Insulin long-term use Z79.4 ; COPD (chronic obstructive pulmonary disease) J44.9 and Hypertension I10 [facility] [address] [facility] [id number] [address] [place] [address] May, Chronic pain G89.29 [facility] [address] [facility] [id number] [address] [place] [phone] Apr, [facility] [address] [place] [id number] [address] [place] [phone] Apr, [facility] [address] [place] [id number] [address] [place] [phone] Mar, [facility] [address] [place] [id number] [address] [place] [phone] Mar, Encounter for immunization Z 23 and Diabetes E11.9 [facility] [address] [id number] [address] [place] [phone] Feb, [facility] [address] [id number] [address] [place] [phone] Feb, [facility] [address] [id number] [address] [place] [phone] Jan, [facility] [address] [id number] [address] [place] [phone] Jan, [facility] [address] [id number] [address] [place] [phone] Dec, [facility] [address] [facility] [id number] [address] [place] [phone] Dec, [facility] [address] [facility] [id number] [address] [place] [phone] Dec, Unspecified arthropathy, sit e unspecified 716.90 and Diabetes mellitus type 2, uncontrolled 250.02 [facility] [address] [id number] [address] [place] [id number] Dec, [facility] [address] [facility] [id number] [address] [place] [id number] Nov, [facility] [address] [id number] [address] [place] [id number] Oct, [facility] [address] [id number] [address] [place] [phone] September, [facility] [address] [id number] [address] [place] [id number] September, [facility] [address] [facility] [id number] [address] [place] [id number] September, [facility] [address] [facility] [id number] [address] [place] [id number] September, [facility] [address] [id number] [address] [place] [address], [place] [id number] 14 Aug, 2014 [facility] [address] [id number] [address] [place] [address], [place] [id number] 13 Aug, 2014 [facility] [address] [id number] [address] [place] [address], [place] [id number] 18 Jul, 2014 [facility] [address] [id number] [address] [place] [address], [place] [id number] 18 Jul, 2014 [facility] [address] [id number] [address] [place] [address], [place] [address] 16 Jul, 2014 [facility] [address] [id number] [address] [place] [address], [place] [id number] 16 Jul, 2014 [facility] [address] [id number] [address] [place] [address], [place] [id number] 16 Jul, 2014 [facility] [address] [id number] [address] [place] [address], [place] [id number] 16 Jul, 2014 [facility] [address] [id number] [address] [place] [address], [place] [id number] 16 Jul, 2014 [facility] [address] [id number] [address] [place] [address], [place] [id number] 16 Jul, 2014 [facility] [address] [id number] [address] [place] [address], [place] [id number] 16 Jul, 2014 [facility] [address] [id number] [address] [place] [address], [place] [id number] 13 Jul, 2014 [facility] [address] [id number] [address] [place] [address], [place] [id number] 13 Jul, 2014 [facility] [address] [id number] [address] [place] [address], [place] [id number] 09 Jul, 2014 [facility] [address] [id number] [address] [place] [address], [place] [id number] 09 Jul, 2014 [facility] [address] [id number] [address] [place] [id number] 17 Jul, 2014 [facility] [address] [id number] [address] [place] [address], [place] [id number] 17 Jul, 2014 [facility] [address] [id number] [address] [place] [address], [place] [id number] 16 Jul, 2014 [facility] [address] [id number] [address] [place] [address], [place] [id number] 16 Jul, 2014 [facility] [address] [id number] [address] [place] [address], [place] [id number] 16 Jul, 2014 [facility] [address] [id number] [address] [place] [address], [place] [id number] 16 Jul, 2014 [facility] [address] [id number] [address] [place] [address], [place] [id number] 16 Jul, 2014 [facility] [address] [id number] [address] [place] [address], [place] [id number] 16 Jul, 2014 [facility] [address] [id number] [address] [place] [address], [place] [id number] 16 Jul, 2014 [facility] [address] [id number] [address] [place] [address], [place] [id number] 16 Jul, 2014 [facility] [address] [address] [id number] [address] [place] [id number] 16 Jul, 2014 [facility] [address] [id number] [address] [place] [address], [place] [address] 16 Jul, 2014 [facility] [address] [id number] [address] [place] [id number] 16 Jul, 2014 [facility] [address] [id number] [address] [place] [address], [place] [address] 16 Jul, 2014 [facility] [address] [id number] [address] [place] [id number] 16 Jul, 2014 [facility] [address] [id number] [address] [place] [id number] Jul, [facility] [address] [id number] [address] [place] [address], [place] [address] May, [facility] [address] [id number] [address] [place] [address], [place] [address] May, [facility] [address] [id number] [address] [place] [address], [place] [address] May, [facility] [address] [id number] [address] [place] [address], [place] [address] May, [facility] [address] [id number] [address] [place] [address], [place] [address] May, [facility] [address] [id number] [address] [place] [address], [place] [address] May, [facility] [address] [id number] [address] [place] [address], [place] [address] May, [facility] [address] [id number] [address] [place] [address], [place] [address] May, [facility] [address] [id number] [address] [place] [address], [place] [address] May, [facility] [address] [id number] [address] [place] [address], [place] [address] May, [facility] [address] [id number] [address] [place] [address], [place] [address] Apr, [facility] [address] [id number] [address] [place] [address], [place] [address] Apr, [facility] [address] [id number] [address] [place] [address], [place] [address] Apr, [facility] [address] [id number] [address] [place] [address], [place] [address] Apr, [facility] [address] [id number] [address] [place] [address], [place] [address] Apr, [facility] [address] [id number] [address] [place] [address], [place] [address] Apr, [facility] [address] [id number] [address] [place] [address], [place] [address] Mar, [facility] [address] [id number] [address] [place] [address], [place] [address] Mar, [facility] [address] [id number] [address] [place] [address], [place] [address] Mar, [facility] [address] [id number] [address] [place] [address], [place] [address] Mar, [facility] [address] [id number] [address] [place] [address], [place] [address] Mar, [facility] [address] [id number] [address] [place] [address], [place] [address] Mar, [facility] [address] [id number] [address] [place] [address], [place] [address] Mar, [facility] [address] [id number] [address] [place] [address], [place] [address] Mar, [facility] [address] [id number] [address] [place] [address], [place] [address] Mar, [facility] [address] [id number] [address] [place] [address], [place] [address] Mar, [facility] [address] [id number] [address] [place] [address], [place] [address] Mar, [facility] [address] [id number] [address] [place] [address], [place] [address] Feb, [facility] [address] [id number] [address] [place] [address], [place] [address] Feb, [facility] [address] [id number] [address] [place] [address], [place] [address] Feb, [facility] [address] [id number] [address] [place] [address], [place] [address] Feb, [facility] [address] [id number] [address] [place] [address], [place] [address] Feb, [facility] [address] [id number] [address] [place] [address], [place] [address] Feb, [facility] [address] [id number] [address] [place] [address], [place] [address] Feb, [facility] [address] [id number] [address] [place] [address], [place] [address] Feb, [facility] [address] [id number] [address] [place] [address], [place] [address] Feb, [facility] [address] [id number] [address] [place] [address], [place] [address] Feb, [facility] [address] [id number] [address] [place] [address], [place] [address] Jan, [facility] [address] [id number] [address] [place] [address], [place] [address] 22 Jan, 2014 [facility] [address] [id number] [address] [place] [address], [place] [address] 16 Jan, 2014 [facility] [address] [id number] [address] [place] [address], [place] [address] 16 Jan, 2014 [facility] [address] [id number] [address] [place] [address], [place] [address] 12 Jan, 2014 [facility] [address] [id number] [address] [place] [address], [place] [address] Jan, [facility] [address] [id number] [address] [place] [address], [place] [address] Jan, [facility] [address] [id number] [address] [place] [address], [place] [address] Dec, [facility] [address] [id number] [address] [place] [address], [place] [address] Dec, [facility] [address] [id number] [address] [place] [address], [place] [address] Dec, [facility] [address] [id number] [address] [place] [address], [place] [address] Dec, [facility] [address] [id number] [address] [place] [address], [place] [address] Dec, [facility] [address] [id number] [address] [place] [address], [place] [address] Dec, [facility] [address] [id number] [address] [place] [address], [place] [address] Dec, [facility] [address] [id number] [address] [place] [address], [place] [address] Dec, [facility] [address] [id number] [address] [place] [address], [place] [address] Oct, [facility] [address] [id number] [address] [place] [address], [place] [address] Oct, [facility] [address] [id number] [address] [place] [address], [place] [address] September, [facility] [address] [id number] [address] [place] [address], [place] [address] September, [facility] [address] [id number] [address] [place] [address], [place] [address] September, [facility] [address] [id number] [address] [place] [address], [place] [address] September, [facility] [address] [id number] [address] [place] [address], [place] [address] September, [facility] [address] [id number] [address] [place] [address], [place] [address] September, [facility] [address] [id number] [address] [place] [address], [place] [address] September, [facility] [address] [id number] [address] [place] [address], [place] [address] Aug, [facility] [address] [id number] [address] [place] [address], [place] [address] 15 Aug, 2013 [facility] [address] [id number] [address] [place] [address], [place] [address] Jul, [facility] [address] [id number] [address] [place] [address], [place] [address] Jul, [facility] [address] [id number] [address] [place] [address], [place] [address] Jul, [facility] [address] [id number] [address] [place] [address], [place] [address] Jul, [facility] [address] [id number] [address] [place] [address], [place] [address] Jul, [facility] [address] [id number] [address] [place] [address], [place] [address] Jul, [facility] [address] [id number] [address] [place] [address], [place] [address] Jul, [facility] [address] [id number] [address] [place] [address], [place] [address] Jul, [facility] [address] [id number] [address] [place] [address], [place] [address] May, [facility] [address] [id number] [address] [place] [address], [place] [address] May, [facility] [address] [id number] [address] [place] [address], [place] [address] May, [facility] [address] [id number] [address] [place] [address], [place] [address] May, [facility] [address] [id number] [address] [place] [address], [place] [address] Apr, [facility] [address] [id number] [address] [place] [address], [place] [address] Mar, [facility] [address] [id number] [address] [place] [address] Mar, [facility] [address] [id number] [address] [place] [address], [place] [address] Mar, [facility] [address] [id number] [address] [place] [address] Mar, [facility] [address] [id number] [address] [place] [address], [place] [address] Mar, [facility] [address] [id number] [address] [place] [address] Mar, [facility] [address] [id number] [address] [place] [address], [place] [address] Mar, [facility] [address] [id number] [address] [place] [address] 18 Mar, 2013 [facility] [address] [id number] [address] [place] [address] Mar, [facility] [address] [id number] [address] [place] [address] Mar, [facility] [address] [id number] [address] [place] [address] 04 Mar, 2013 [facility] [address] [id number] [address] [place] [address] 04 Mar, 2013 [facility] [address] [id number] [address] [place] [address] 15 Feb, 2013 [facility] [address] [id number] [address] [place] [address] 15 Feb, 2013 [facility] [address] [id number] [address] [place] [address] 11 Feb, 2013 [facility] [address] [id number] [address] [place] [address] 11 Feb, 2013 [facility] [address] [id number] [address] [place] [address] 07 Feb, 2013 [facility] [address] [id number] [address] [place] [address], [place] [address] Jan, [facility] [address] [id number] [address] [place] [address], [place] [address] Dec, [facility] [address] [id number] [address] [place] [address], [place] [address] Dec, [facility] [address] [id number] [address] [place] [address], [place] [address] Dec, [facility] [address] [id number] [address] [place] [address], [place] [address] Nov, [facility] [address] [id number] [address] [place] [address], [place] [address] Nov, [facility] [address] [id number] [address] [place] [address], [place] [address] Nov, [facility] [address] [id number] [address] [place] [address], [place] [address] Oct, [facility] [address] [id number] [address] [place] [address], [place] [address] Oct, [facility] [address] [id number] [address] [place] [address], [place] [address] Oct, [facility] [address] [id number] [address] [place] [address], [place] [address] September, [facility] [address] [id number] [address] [place] [address], [place] [address] September, [facility] [address] [id number] [address] [place] [address], [place] [address] September, [facility] [address] [id number] [address] [place] [address], [place] [address] September, [facility] [address] [id number] [address] [place] [address], [place] [address] September, [facility] [address] [id number] [address] [place] [address], [place] [address] Aug, [facility] [address] [id number] [address] [place] [address], [place] [address] Aug, [facility] [address] [id number] [address] [place] [address], [place] [address] Aug, [facility] [address] [id number] [address] [place] [address], [place] [address] Jul, [facility] [address] [id number] [address] [place] [address], [place] [address] Jul, [facility] [address] [id number] [address] [place] [address], [place] [address] Jul, [facility] [address] [id number] [address] [place] [address], [place] [address] Jul, [facility] [address] [id number] [address] [place] [address], [place] [address] Jul, [facility] [address] [id number] [address] [place] [address], [place] [address] Jul, [facility] [address] [id number] [address] [place] [address], [place] [address] Jul, [facility] [address] [id number] [address] [place] [address], [place] [address] May, [facility] [address] [id number] [address] [place] [address], [place] [address] May, [facility] [address] [id number] [address] [place] [address], [place] [address] May, [facility] [address] [id number] [address] [place] [address], [place] [address] Apr, [facility] [address] [id number] [address] [place] [address], [place] [address] Apr, [facility] [address] [id number] [address] [place] [address], [place] [address] Apr, [facility] [address] [id number] [address] [place] [address], [place] [address] Apr, [facility] [address] [id number] [address] [place] [address], [place] [address] Apr, [facility] [address] [id number] [address] [place] [address], [place] [address] Mar, [facility] [address] [id number] [address] [place] [address], [place] [address] Mar, [facility] [address] [id number] [address] [place] [address], [place] [address] Mar, [facility] [address] [id number] [address] [place] [address], [place] [address] Mar, [facility] [address] [id number] [address] [place] [address], [place] [address] Feb, [facility] [address] [id number] [address] [place] [address], [place] [address] Feb, [facility] [address] [id number] [address] [place] [address], [place] [address] Feb, [facility] [address] [id number] [address] [place] [address], [place] [address] Feb, [facility] [address] [id number] [address] [place] [address], [place] [address] Feb, [facility] [address] [id number] [address] [place] [address], [place] [address] Jan, [facility] [address] [id number] [address] [place] [address], [place] [address] Dec, [facility] [address] [id number] [address] [place] [address], [place] [address] Dec, [facility] [address] [id number] [address] [place] [address], [place] [address] Dec, [facility] [address] [id number] [address] [place] [address], [place] [address] Nov, [facility] [address] [id number] [address] [place] [address], [place] [address] Nov, [facility] [address] [id number] [address] [place] [address], [place] [address] Nov, [facility] [address] [id number] [address] [place] [address], [place] [address] Oct, [facility] [address] [id number] [address] [place] [address], [place] [address] Oct, [facility] [address] [id number] [address] [place] [address], [place] [address] Oct, [facility] [address] [id number] [address] [place] [address], [place] [address] Oct, [facility] [address] [id number] [address] [place] [address], [place] [address] September, [facility] [address] [id number] [address] [place] [address], [place] [address] September, [facility] [address] [id number] [address] [place] [address], [place] [address] Aug, [facility] [address] [id number] [address] [place] [address], [place] [address] Aug, [facility] [address] [id number] [address] [place] [address], [place] [address] Aug, [facility] [address] [id number] [address] [place] [address], [place] [address] Aug, [facility] [address] [id number] [address] [place] [address], [place] [address] Aug, [facility] [address] [id number] [address] [place] [address], [place] [address] Aug, [facility] [address] [id number] [address] [place] [address], [place] [address] Aug, [facility] [address] [id number] [address] [place] [address], [place] [address] Jul, [facility] [address] [id number] [address] [place] [address], [place] [address] Jul, [facility] [address] [id number] [address] [place] [address], [place] [address] Jul, [facility] [address] [id number] [address] [place] [address], [place] [address] May, [facility] [address] [id number] [address] [place] [address], [place] [address] May, [facility] [address] [id number] [address] [place] [address], [place] [address] May, [facility] [address] [id number] [address] [place] [address], [place] [address] Apr, [facility] [address] [id number] [address] [place] [address], [place] [address] Apr, [facility] [address] [id number] [address] [place] [address], [place] [address] Mar, [facility] [address] [id number] [address] [place] [address], [place] [address] Mar, [facility] [address] [id number] [address] [place] [address], [place] [address] Mar, [facility] [address] [id number] [address] [place] [id number] Mar, [facility] [address] [id number] [address] [place] [id number] Mar, [facility] [address] [id number] [address] [place] [address], [place] [address] Mar, [facility] [address] [id number] [address] [place] [address], [place] [address] Feb, [facility] [address] [id number] [address] [place] [address], [place] [address] Feb, [facility] [address] [id number] [address] [place] [address] 14 Feb, 2011 IMMUNIZATIONS No Known Immunizations [...]
--- OUTSIDE RECORDS SUMMARY | 2020-01-03 07:49 | XMS REPORT ---
Author Author Tra VALDOVINOS Organization [facility] [place] Address [address] [place] [address] Care Team Providers Care Rn Emergency Name Role Phone MED VALDOVINOS Unavailable PROBLEMS Type Condition ICD9-CM Code HSK03-UG Code Onset Dates Condition S tatus SNOMED Code Problem Insulin long-term use Z79.4 Active 951234784 Problem Hypertension I10 Active 3754609 3 Problem Diabetes E11.9 Active 74335722 Problem Hypoxia R09.02 Active 631937608 Problem Anxiety F41.9 Active 59176791 Problem Port catheter in place Z95.828 Active 392334915 Problem Pressure ulcer of other site, stage 3 L89.893 Active 034613361 Problem COPD (chronic obstructive pulmonary disease) J44.9 Active 37735457 Problem Type 2 diabetes mellitus wit h diabetic peripheral angiopathy without gangrene E11.51 Active 956917181 Problem Back pain M54.9 Active 741701365 Problem PAD (peripheral artery disease) I73.9 Active 773395430 Problem Lumbar radiculopathy, chronic M54.16 Active 489997217 Problem Recurrent major depressive disorder, in full remission F33.42 Active 063721214 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 [id number] ALLERGIES No Information ENCOUNTERS Encounter Location Date Diagnosis [facility] [place] [address] [facility] [id number] [address] [place] [phone] Dec, [facility] [place] [address] [facility] [id number] [address] [place] [id number] Nov, [facility] [place] [address] [facility] [id number] [address] [place] [phone] Nov, Back pain M54.9 [facility] [place] [address] [facility] [id number] [address] [place] [id number] Nov, Anxiety F41.9 [facility] [address] [id number] [address] [place] [id number] Nov, [facility] [place] [address] [id number] [address] [place] [id number] Oct, Back pain M54.9 [facility] [place] [address] [id number] [address] [place] [id number] Oct, [facility] [place] [address] [id number] [address] [place] [id number] Oct, [facility] [place] [address] [id number] [address] [place] [id number] Oct, [facility] [place] [address] [id number] [address] [place] [id number] September, Back pain M54.9 [facility] [place] [address] [id number] [address] [place] [id number] September, [facility] [place] [address] [id number] [address] [place] [id number] September, [facility] [place] [address] [id number] [address] [place] [id number] September, [facility] [place] [address] [id number] [address] [place] [id number] Aug, Back pain M54.9 [facility] [place] [address] [id number] [address] [place] [id number] Aug, Anxiety F41.9 [facility] [place] [address] [id number] [address] [place] [id number] Aug, [facility] [place] [address] [id number] [address] [place] [id number] Aug, Pressure ulcer of other site , stage 3 L89.893 and COPD (chronic obstructive pulmonary disease) J44.9 [facility] [place] [address] [id number] [address] [place] [id number] Aug, History of smoking Z87.891 [facility] [place] [address] [id number] [address] [place] [id number] Jul, Type 2 diabetes mellitus wit h diabetic peripheral angiopathy without gangrene E11.51 [facility] [place] [address] [id number] [address] [place] [phone] Jul, Back pain M54.9 [facility] [place] [address] [id number] [address] [place] [id number] Jul, Anxiety F41.9 [facility] [place] [address] [id number] [address] [place] [id number] Jul, [facility] [place] [address] [id number] [address] [place] [id number] Jul, Back pain M54.9 [facility] [place] [address] [id number] [address] [place] [id number] Jul, Back pain M54.9 [facility] [place] [address] [id number] [address] [place] [id number] Jul, Lumbar radiculopathy, chroni c M54.16 ; Hypertension I10 and Type 2 diabetes mellitus with diabetic peripheral angiopathy without gangrene E11.51 [facility] [place] [address] [id number] [address] [place] [id number] Jul, Back pain M54.9 [facility] [place] [address] [id number] [address] [place] [id number] Jul, Back pain M54.9 and Anxiety F41.9 [facility] [place] [address] [id number] [address] [place] [id number] Jul, [facility] [place] [address] [id number] [address] [place] [id number] May, Back pain M54.9 and Anxiety F41.9 [facility] [place] [address] [id number] [address] [place] [id number] May, [facility] [place] [address] [id number] [address] [place] [id number] Apr, Radiculopathy of lumbar rhiannon on M54.16 ; Back pain M54.9 and Anxiety F41.9 [facility] [place] [address] [id number] [address] [place] [id number] Apr, Diabetes E11.9 ; Muscle spas m M62.838 and Lumbar radiculopathy, chronic M54.16 [facility] [place] [address] [id number] [address] [place] [id number] Apr, [facility] [place] [address] [id number] [address] [place] [id number] Apr, [facility] [place] [address] [id number] [address] [place] [phone] Mar, Back pain M54.9 and Anxiety F41.9 [facility] [place] [address] [id number] [address] [place] [id number] Mar, [facility] [place] [address] [id number] [address] [place] [id number] Mar, [facility] [place] [address] [id number] [address] [place] [id number] Mar, [facility] [place] [address] [facility] [id number] [address] [place] [id number] Mar, Encounter for immunization Z 23 [facility] [place] [address] [id number] [address] [place] [id number] Feb, Back pain M54.9 and Anxiety F41.9 [facility] [place] [address] [id number] [address] [place] [id number] 04 Feb, 2018 Back pain M54.9 and Anxiety F41.9 [facility] [place] [address] [id number] [address] [place] [id number] 06 Jan, 2018 Back pain M54.9 and Anxiety F41.9 [facility] [place] [address] [id number] [address] [place] [id number] Jan, [facility] [place] [address] [id number] [address] [place] [id number] Dec, [facility] [place] [address] [id number] [address] [place] [id number] Dec, Back pain M54.9 and Anxiety F41.9 [facility] [place] [address] [id number] [address] [place] [id number] Dec, Diabetes E11.9 ; Type 2 diab etes mellitus with diabetic peripheral angiopathy without gangrene E11.51 ; Lumbar radiculopathy, chronic M54.16 ; COPD (chronic obstructive pulmonary disease) J44.9 and Anxiety F41.9 [facility] [place] [address] [id number] [address] [place] [id number] Dec, Back pain M54.9 and Anxiety F41.9 [place] [address] [id number] [address] [place] [id number] Nov, Back pain M54.9 and Anxiety F41.9 [facility] [place] [address] [id number] [address] [place] [id number] Oct, [facility] [place] [address] [id number] [address] [place] [id number] Oct, Back pain M54.9 and Anxiety F41.9 [facility] [place] [address] [id number] [address] [place] [id number] September, Anxiety F41.9 and Back pain M54.9 [facility] [place] [address] [id number] [address] [place] [id number] September, Diabetes E11.9 ; Hypertensio n I10 ; COPD (chronic obstructive pulmonary disease) J44.9 and Lumbar radiculopathy, chronic M54.16 [facility] [place] [address] [id number] [address] [place] [id number] September, Anxiety F41.9 [place] [address] [facility] [id number] [address] [place] [id number] Aug, [facility] [place] [address] [id number] [address] [place] [id number] Aug, [facility] [place] [address] [facility] [id number] [address] [place] [id number] Aug, Anxiety F41.9 and Back pain M54.9 [place] [address] [facility] [id number] [address] [place] [id number] Aug, Medicare annual wellness vis it, initial [...] Care Facility current use of insulin Z79.4 [place] [id number] [facility] [id number] [address] [place] [id number] Jul, Back pain M54.9 [place] [address] [facility] [id number] [address] [place] [id number] Jul, [place] [address] [facility] [id number] [address] [place] [id number] Jul, Anxiety F41.9 and Back pain M54.9 [place] [address] [facility] [id number] [address] [place] [id number] Jul, Diabetes E11.9 [facility] [place] [address] [id number] [address] [place] [phone] May, [place] [address] [facility] [id number] [address] [place] [id number] May, Diabetes E11.9 ; Anxiety F41 .9 ; Back pain M54.9 and COPD (chronic obstructive pulmonary disease) J44.9 [place] [id number] [id number] [address] [place] [phone] May, Back pain M54.9 [facility] [place] [address] [id number] [address] [place] [id number] May, [facility] [place] [address] [id number] [address] [place] [id number] Apr, Back pain M54.9 [facility] [place] [address] [id number] [address] [place] [phone] Mar, Back pain M54.9 [facility] [place] [address] [id number] [address] [place] [id number] Mar, [facility] [place] [address] [id number] [address] [place] [id number] 16 Mar, 2017 [facility] [place] [address] [id number] [address] [place] [id number] 14 Mar, 2017 Radiculopathy of lumbar rhiannon on M54.16 [facility] [place] [address] [id number] [address] [place] [id number] 13 Mar, 2017 [facility] [place] [address] [facility] [id number] [address] [place] [id number] 07 Mar, 2017 Encounter for immunization Z 23 and Lumbar radiculopathy, chronic M54.16 [facility] [place] [address] [id number] [address] [place] [id number] Mar, Back pain M54.9 and Anxiety F41.9 [facility] [address] [id number] [address] [place] [id number] Feb, Acute bilateral low back boy n with left-sided sciatica M54.42 and Acute bilateral low back pain with right-sided sciatica M54.41 [facility] [place] [address] [id number] [address] [place] [id number] Feb, [facility] [place] [address] [id number] [address] [place] [id number] Feb, Back pain M54.9 [facility] [place] [address] [id number] [address] [place] [id number] 05 Jan, 2017 Back pain M54.9 and Anxiety F41.9 [facility] [place] [address] [id number] [address] [place] [id number] 05 Jan, 2017 Diabetes E11.9 [facility] [place] [address] [id number] [address] [place] [id number] Dec, Diabetes E11.9 ; Back pain M 54.9 ; Anxiety F41.9 and Insulin long- term use Z79.4 [facility] [place] [address] [id number] [address] [place] [phone] Dec, Anxiety F41.9 [facility] [place] [address] [id number] [address] [place] [id number] Dec, Back pain M54.9 [facility] [place] [address] [id number] [address] [place] [id number] Nov, Back pain M54.9 [facility] [place] [address] [id number] [address] [place] [id number] Oct, Back pain M54.9 and Anxiety F41.9 [facility] [place] [address] [id number] [address] [place] [id number] September, Back pain M54.9 [facility] [place] [address] [id number] [address] [place] [id number] September, Back pain M54.9 and Anxiety F41.9 [facility] [place] [address] [id number] [address] [place] [id number] Aug, Diabetes E11.9 ; Anxiety F41 .9 ; Back pain M54.9 and PAD (peripheral artery disease) I73.9 [facility] [place] [address] [id number] [address] [place] [id number] Aug, Anxiety F41.9 [facility] [place] [address] [id number] [address] [place] [id number] Aug, Back pain M54.9 [facility] [place] [address] [id number] [address] [place] [id number] Jul, Back pain M54.9 [facility] [place] [address] [id number] [address] [place] [id number] Jul, Back pain M54.9 [facility] [place] [address] [id number] [address] [place] [id number] Jul, Back pain M54.9 [facility] [place] [address] [id number] [address] [place] [id number] Jul, Dorsalgia M54.9 [facility] [place] [address] [id number] [address] [place] [id number] Jul, [facility] [place] [address] [id number] [address] [place] [id number] May, Back pain M54.9 [facility] [place] [address] [id number] [address] [place] [id number] May, Diabetes E11.9 ; Anxiety F41 .9 ; Port catheter in place Z95.828 ; Encounter for immunization Z23 and Insulin long-term use Z79.4 [facility] [place] [address] [id number] [address] [place] [id number] Apr, Back pain M54.9 [facility] [place] [address] [id number] [address] [place] [id number] Apr, Back pain M54.9 [facility] [place] [address] [id number] [address] [place] [id number] Apr, [facility] [place] [address] [id number] [address] [place] [phone] Apr, Back pain M54.9 [facility] [place] [address] [id number] [address] [place] [id number] Mar, COPD (chronic obstructive pu lmonary disease) J44.9 [facility] [place] [address] [id number] [address] [place] [id number] Feb, [facility] [place] [address] [id number] [address] [place] [id number] 30 Jan, 2016 [facility] [place] [address] [id number] [address] [place] [id number] Jan, [facility] [place] [address] [id number] [address] [place] [id number] Jan, [facility] [place] [address] [id number] [address] [place] [id number] Jan, [facility] [place] [address] [id number] [address] [place] [id number] Dec, Diabetes E11.9 ; Hypoxia R09 .02 and Back pain M54.9 [facility] [place] [address] [id number] [address] [place] [phone] Dec, [facility] [place] [address] [id number] [address] [place] [id number] Nov, [facility] [place] [address] [id number] [address] [place] [id number] Oct, Anxiety F41.9 [facility] [place] [address] [id number] [address] [place] [id number] Oct, Back pain M54.9 [facility] [place] [address] [id number] [address] [place] [id number] September, Back pain M54.9 [facility] [place] [address] [id number] [address] [place] [id number] September, Diabetes E11.9 [facility] [place] [address] [id number] [address] [place] [id number] September, [facility] [place] [address] [id number] [address] [place] [id number] September, Diabetes E11.9 ; Insulin sarai g-term use Z79.4 and Back pain M54.9 [facility] [place] [address] [id number] [address] [place] [id number] Aug, Back pain M54.9 [facility] [place] [address] [facility] [id number] [address] [place] [id number] Aug, Back pain M54.9 ; Anxiety F4 1.9 and Arthropathy, unspecified M12.9 [facility] [place] [address] [id number] [address] [place] [id number] Jul, Back pain M54.9 [facility] [place] [address] [facility] [id number] [address] [place] [id number] Jul, Anxiety F41.9 [facility] [place] [address] [facility] [id number] [address] [place] [id number] Jul, Back pain M54.9 [facility] [place] [address] [facility] [id number] [address] [place] [id number] Jul, [facility] [place] [address] [id number] [address] [place] [id number] Jul, [facility] [place] [address] [facility] [id number] [address] [place] [id number] May, Back pain M54.9 ; Diabetes E 11.9 ; Insulin long-term use Z79.4 ; COPD (chronic obstructive pulmonary disease) J44.9 and Hypertension I10 [facility] [place] [address] [id number] [address] [place] [phone] May, Chronic pain G89.29 [facility] [place] [address] [facility] [id number] [address] [place] [id number] Apr, [facility] [place] [address] [facility] [id number] [address] [place] [id number] Apr, [facility] [place] [address] [facility] [id number] [address] [place] [id number] Mar, [facility] [place] [address] [facility] [id number] [address] [place] [id number] Mar, Encounter for immunization Z 23 and Diabetes E11.9 [facility] [place] [address] [id number] [address] [place] [id number] Feb, [facility] [place] [address] [id number] [address] [place] [id number] Feb, [facility] [place] [address] [id number] [address] [place] [id number] Jan, [facility] [place] [address] [id number] [address] [place] [id number] Jan, [facility] [place] [address] [id number] [address] [place] [id number] Dec, [facility] [facility] [place] [address] [id number] [address] [place] [id number] Dec, [facility] [place] [address] [id number] [address] [place] [address] Dec, Unspecified arthropathy, sit e unspecified 716.90 and Diabetes mellitus type 2, uncontrolled 250.02 [facility] [place] [address] [id number] [address] [place] [id number] Dec, [facility] [place] [address] [id number] [address] [place] [id number] Nov, [facility] [place] [address] [id number] [address] [place] [address] Oct, [facility] [place] [address] [id number] [address] [place] [address] September, [facility] [place] [address] [id number] [address] [place] [id number] September, [facility] [place] [address] [id number] [address] [place] [id number] September, [facility] [place] [address] [id number] [address] [place] [id number] September, [facility] [address] [id number] [facility] [place] [address] 14 Aug, 2014 [facility] [address] [id number] [address] [place] [address], [place] [address] 13 Aug, 2014 [facility] [address] [id number] [address] [place] [address], [place] [address] 18 Jul, 2014 [facility] [address] [id number] [address] [place] [address], [place] [address] 18 Jul, 2014 [facility] [address] [id number] [address] [place] [address], [place] [address] 16 Jul, 2014 [facility] [address] [id number] [address] [place] [address], [place] [address] 16 Jul, 2014 [facility] [address] [id number] [address] [place] [address], [place] [address] 16 Jul, 2014 [facility] [address] [id number] [address] [place] [address], [place] [address] 16 Jul, 2014 [facility] [address] [id number] [address] [place] [address], [place] [address] 16 Jul, 2014 [facility] [address] [id number] [address] [place] [address], [place] [address] 16 Jul, 2014 [facility] [address] [id number] [address] [place] [address], [place] [address] 16 Jul, 2014 [facility] [address] [id number] [address] [place] [address], [place] [address] 13 Jul, 2014 [facility] [address] [id number] [address] [place] [address], [place] [address] 13 Jul, 2014 [facility] [address] [id number] [address] [place] [address], [place] [address] 09 Jul, 2014 [facility] [address] [id number] [address] [place] [address], [place] [address] 09 Jul, 2014 [facility] [address] [id number] [address] [place] [address], [place] [address] 17 Jul, 2014 [facility] [address] [id number] [address] [place] [address], [place] [address] 17 Jul, 2014 [facility] [address] [id number] [address] [place] [address], [place] [address] 16 Jul, 2014 [facility] [address] [id number] [address] [place] [address], [place] [address] 16 Jul, 2014 [facility] [address] [id number] [address] [place] [address], [place] [address] 16 Jul, 2014 [facility] [address] [id number] [address] [place] [address], [place] [address] 16 Jul, 2014 [facility] [address] [id number] [address] [place] [address], [place] [address] 16 Jul, 2014 [facility] [address] [id number] [address] [place] [address], [place] [address] 16 Jul, 2014 [facility] [address] [id number] [address] [place] [address], [place] [address] 16 Jul, 2014 [facility] [address] [id number] [address] [place] [address], [place] [address] 16 Jul, 2014 [facility] [address] [id number] [address] [place] [address], [place] [address] 16 Jul, 2014 [facility] [address] [id number] [address] [place] [address], [place] [address] 16 Jul, 2014 [facility] [address] [id number] [address] [place] [address], [place] [address] 16 Jul, 2014 [facility] [address] [id number] [address] [place] [address], [place] [address] 16 Jul, 2014 [facility] [address] [id number] [address] [place] [address], [place] [address] 16 Jul, 2014 [facility] [address] [id number] [address] [place] [address], [place] [address] Jul, [facility] [address] [id number] [address] [place] [address], [place] [address] May, [facility] [address] [id number] [address] [place] [address], [place] [address] May, [facility] [address] [id number] [address] [place] [address], [place] [address] May, [facility] [address] [id number] [address] [place] [address], [place] [address] May, [facility] [address] [id number] [address] [place] [address], [place] [address] May, [facility] [address] [id number] [address] [place] [address], [place] [address] May, [facility] [address] [id number] [address] [place] [address], [place] [address] May, [facility] [address] [id number] [address] [place] [address], [place] [address] May, [facility] [address] [id number] [address] [place] [address], [place] [address] May, [facility] [address] [id number] [address] [place] [address], [place] [address] May, [facility] [address] [id number] [address] [place] [address], [place] [address] Apr, [facility] [address] [id number] [address] [place] [address], [place] [address] Apr, [facility] [address] [id number] [address] [place] [address], [place] [address] Apr, [facility] [address] [id number] [address] [place] [address], [place] [address] Apr, [facility] [address] [id number] [address] [place] [address], [place] [address] Apr, [facility] [address] [id number] [address] [place] [address], [place] [address] Apr, [facility] [address] [id number] [address] [place] [address], [place] [address] Mar, [facility] [address] [id number] [address] [place] [address], [place] [address] Mar, [facility] [address] [id number] [address] [place] [address], [place] [address] Mar, [facility] [address] [id number] [address] [place] [address], [place] [address] Mar, [facility] [address] [id number] [address] [place] [address], [place] [address] Mar, [facility] [address] [id number] [address] [place] [address], [place] [address] Mar, [facility] [address] [id number] [address] [place] [address], [place] [address] Mar, [facility] [address] [id number] [address] [place] [address], [place] [address] Mar, [facility] [address] [id number] [address] [place] [address], [place] [address] Mar, [facility] [address] [id number] [address] [place] [address], [place] [address] Mar, [facility] [address] [id number] [address] [place] [address], [place] [address] Mar, [facility] [address] [id number] [address] [place] [address], [place] [address] Feb, [facility] [address] [id number] [address] [place] [address], [place] [address] Feb, [facility] [address] [id number] [address] [place] [address], [place] [address] Feb, [facility] [address] [id number] [address] [place] [address], [place] [address] Feb, [facility] [address] [id number] [address] [place] [address], [place] [address] Feb, [facility] [address] [id number] [address] [place] [address], [place] [address] Feb, [facility] [address] [id number] [address] [place] [address], [place] [address] Feb, [facility] [address] [id number] [address] [place] [address], [place] [address] Feb, [facility] [address] [id number] [address] [place] [address], [place] [address] Feb, [facility] [address] [id number] [address] [place] [address], [place] [address] Feb, [facility] [address] [id number] [address] [place] [address], [place] [address] Jan, [facility] [address] [id number] [address] [place] [address], [place] [address] Jan, [facility] [address] [id number] [address] [place] [address], [place] [address] 16 Jan, 2014 [facility] [address] [id number] [address] [place] [address], [place] [address] 16 Jan, 2014 [facility] [address] [id number] [address] [place] [address], [place] [address] 12 Jan, 2014 [facility] [address] [id number] [address] [place] [address], [place] [address] Jan, [facility] [address] [id number] [address] [place] [address], [place] [address] Jan, [facility] [address] [id number] [address] [place] [address], [place] [address] Dec, [facility] [address] [id number] [address] [place] [address], [place] [address] Dec, [facility] [address] [id number] [address] [place] [address], [place] [address] Dec, [facility] [address] [id number] [address] [place] [address], [place] [address] Dec, [facility] [address] [id number] [address] [place] [address], [place] [address] Dec, [facility] [address] [id number] [address] [place] [address], [place] [address] Dec, [facility] [address] [id number] [address] [place] [address], [place] [address] Dec, [facility] [address] [id number] [address] [place] [address], [place] [address] Dec, [facility] [address] [id number] [address] [place] [address], [place] [address] Oct, [facility] [address] [id number] [address] [place] [address], [place] [address] Oct, [facility] [address] [id number] [address] [place] [address], [place] [address] September, [facility] [address] [id number] [address] [place] [address], [place] [address] September, [facility] [address] [id number] [address] [place] [address], [place] [address] September, [facility] [address] [id number] [address] [place] [address], [place] [address] September, [facility] [address] [id number] [address] [place] [address], [place] [address] September, [facility] [address] [id number] [address] [place] [address], [place] [address] September, [facility] [address] [id number] [address] [place] [address], [place] [address] September, [facility] [address] [id number] [address] [place] [address], [place] [address] Aug, [facility] [address] [id number] [address] [place] [address], [place] [address] 15 Aug, 2013 [facility] [address] [id number] [address] [place] [address], [place] [address] Jul, [facility] [address] [id number] [address] [place] [address], [place] [address] 24 Jul, 2013 [facility] [address] [id number] [address] [place] [address], [place] [address] Jul, [facility] [address] [id number] [address] [place] [address], [place] [address] Jul, [facility] [address] [id number] [address] [place] [address], [place] [address] Jul, [facility] [address] [id number] [address] [place] [address], [place] [address] Jul, [facility] [address] [id number] [address] [place] [address], [place] [address] Jul, [facility] [address] [id number] [address] [place] [address], [place] [address] Jul, [facility] [address] [id number] [address] [place] [address], [place] [address] May, [facility] [address] [id number] [address] [place] [address], [place] [address] May, [facility] [address] [id number] [address] [place] [address], [place] [address] May, [facility] [address] [id number] [address] [place] [address], [place] [address] May, [facility] [address] [id number] [address] [place] [address], [place] [address] Apr, [facility] [address] [id number] [address] [place] [address], [place] [address] Mar, [facility] [address] [id number] [address] [place] [address], [place] [address] Mar, [facility] [address] [id number] [address] [place] [address], [place] [address] Mar, [facility] [address] [id number] [address] [place] [address], [place] [address] Mar, [facility] [address] [id number] [address] [place] [address], [place] [address] 18 Mar, 2013 [facility] [address] [id number] [address] [place] [address] 18 Mar, 2013 [facility] [address] [id number] [address] [place] [address], [place] [address] Mar, [facility] [address] [id number] [address] [place] [address] Mar, [facility] [address] [id number] [address] [place] [address] Mar, [facility] [address] [id number] [address] [place] [address] Mar, [facility] [address] [id number] [address] [place] [address] Mar, [facility] [address] [id number] [address] [place] [id number] 04 Mar, 2013 [facility] [address] [id number] [address] [place] [address] 15 Feb, 2013 [facility] [address] [id number] [address] [place] [id number] 15 Feb, 2013 [facility] [address] [id number] [address] [place] [address], [place] [address] Feb, [facility] [address] [id number] [address] [place] [address] 11 Feb, 2013 [facility] [address] [id number] [address] [place] [id number] 07 Feb, 2013 [facility] [address] [id number] [address] [place] [address], [place] [address] Jan, [facility] [address] [id number] [address] [place] [address], [place] [address] Dec, [facility] [address] [id number] [address] [place] [address], [place] [address] Dec, [facility] [address] [id number] [address] [place] [address], [place] [address] Dec, [facility] [address] [id number] [address] [place] [address], [place] [address] Nov, [facility] [address] [id number] [address] [place] [address], [place] [address] Nov, [facility] [address] [id number] [address] [place] [address], [place] [address] Nov, [facility] [address] [id number] [address] [place] [address], [place] [address] Oct, [facility] [address] [id number] [address] [place] [address], [place] [address] Oct, [facility] [address] [id number] [address] [place] [address], [place] [address] Oct, [facility] [address] [id number] [address] [place] [address], [place] [address] September, [facility] [address] [id number] [address] [place] [address], [place] [address] September, [facility] [address] [id number] [address] [place] [address], [place] [address] September, [facility] [address] [id number] [address] [place] [address], [place] [address] September, [facility] [address] [id number] [address] [place] [address], [place] [address] September, [facility] [address] [id number] [address] [place] [address], [place] [address] Aug, [facility] [address] [id number] [address] [place] [address], [place] [address] Aug, [facility] [address] [id number] [address] [place] [address], [place] [address] Aug, [facility] [address] [id number] [address] [place] [address], [place] [address] Jul, [facility] [address] [id number] [address] [place] [address], [place] [address] Jul, [facility] [address] [id number] [address] [place] [address], [place] [address] Jul, [facility] [address] [id number] [address] [place] [address], [place] [address] Jul, [facility] [address] [id number] [address] [place] [address], [place] [address] Jul, [facility] [address] [id number] [address] [place] [address], [place] [address] Jul, [facility] [address] [id number] [address] [place] [address], [place] [address] Jul, [facility] [address] [id number] [address] [place] [address], [place] [address] May, [facility] [address] [id number] [address] [place] [address], [place] [address] May, [facility] [address] [id number] [address] [place] [id number] May, [facility] [address] [id number] [address] [place] [address], [place] [address] Apr, [facility] [address] [id number] [address] [place] [address], [place] [address] Apr, [facility] [address] [id number] [address] [place] [address], [place] [address] Apr, [facility] [address] [id number] [address] [place] [id number] Apr, [facility] [address] [id number] [address] [place] [address], [place] [address] Apr, [facility] [address] [id number] [address] [place] [id number] Mar, [facility] [address] [id number] [address] [place] [address], [place] [address] Mar, [facility] [address] [id number] [address] [place] [address], [place] [address] Mar, [facility] [address] [id number] [address] [place] [address], [place] [address] Mar, [facility] [address] [id number] [address] [place] [address], [place] [address] Feb, [facility] [address] [id number] [address] [place] [address], [place] [address] Feb, [facility] [address] [id number] [address] [place] [address], [place] [address] Feb, [facility] [address] [id number] [address] [place] [address], [place] [address] Feb, [facility] [address] [id number] [address] [place] [id number] Feb, [facility] [address] [id number] [address] [place] [address], [place] [address] Jan, [facility] [address] [id number] [address] [place] [id number] Dec, [facility] [address] [id number] [address] [place] [address], [place] [address] Dec, [facility] [address] [id number] [address] [place] [id number] Dec, [facility] [address] [id number] [address] [place] [address], [place] [address] Nov, [facility] [address] [id number] [address] [place] [address], [place] [address] Nov, [facility] [address] [id number] [address] [place] [address], [place] [address] Nov, [facility] [address] [id number] [address] [place] [address], [place] [address] Oct, [facility] [address] [id number] [address] [place] [address], [place] [address] Oct, [facility] [address] [id number] [address] [place] [address], [place] [address] Oct, [facility] [address] [id number] [address] [place] [address], [place] [address] Oct, [facility] [address] [id number] [address] [place] [address], [place] [address] September, [facility] [address] [id number] [address] [place] [address], [place] [address] September, [facility] [address] [id number] [address] [place] [address], [place] [address] Aug, [facility] [address] [id number] [address] [place] [address], [place] [address] Aug, [facility] [address] [id number] [address] [place] [address], [place] [address] Aug, [facility] [address] [id number] [address] [place] [address], [place] [address] Aug, [facility] [address] [id number] [address] [place] [address], [place] [address] Aug, [facility] [address] [id number] [address] [place] [address], [place] [address] Aug, [facility] [address] [id number] [address] [place] [address], [place] [address] Aug, [facility] [address] [id number] [address] [place] [address] [address] Jul, [facility] [address] [id number] [address] [place] [address], [place] [address] Jul, [facility] [address] [id number] [address] [place] [address], [place] [address] Jul, [facility] [address] [id number] [address] [place] [address], [place] [id number] May, [facility] [address] [id number] [address] [place] [address], [place] [address] May, [facility] [address] [id number] [address] [place] [address], [place] [address] May, [facility] [address] [id number] [address] [place] [address], [place] [address] Apr, [facility] [address] [id number] [address] [place] [address], [place] [id number] Apr, [facility] [address] [id number] [address] [place] [address], [place] [address] Mar, [facility] [address] [id number] [address] [place] [address], [place] [address] Mar, [facility] [address] [id number] [address] [place] [address], [place] [id number] Mar, [facility] [address] [id number] [address] [place] [id number] Mar, [facility] [address] [id number] [address] [place] [id number] Mar, [facility] [address] [id number] [address] [place] [address], [place] [id number] Mar, [facility] [address] [id number] [address] [place] [address], [place] [address] Feb, [facility] [address] [id number] [address] [place] [id number] Feb, [facility] [address] [id number] [facility] [place] [address] 14 Feb, 2011 IMMUNIZATIONS No Known Immunizations SOCIAL HISTORY Never Assessed REASON FOR VISIT PLAN OF CARE VITAL SIGNS MEDICATIONS Unknown Medications RESULTS No Results PROCEDURES Procedure Date Ordered Result Body Site BASIC METABOLIC PANEL November 30, 2011 VENIPUNCT, ROUTINE* November 30, 2011 INSTRUCTIONS MEDICATIONS ADMINISTERED No Known Medications MEDICAL [...]
--- OUTSIDE RECORDS SUMMARY | 2020-01-03 07:49 | XMS REPORT ---
Author Author Tra SILVERIO Organization [facility] Address [address] [place] [address] Care Team Providers Care Surgical First Assistant Name Role Phone FERNY SILVERIO Unavailable PROBLEMS Type Condition ICD9-CM Code [id number] Code Onset Dates Condition S tatus SNOMED Code Problem Insulin long-term use Z79.4 Active 078364462 Problem Hypertension I10 Active 4953104 3 Problem Diabetes E11.9 Active 88379124 Problem Hypoxia R09.02 Active 368233916 Problem Anxiety F41.9 Active 61828585 Problem Port catheter in place Z95.828 Active 410080947 Problem Pressure ulcer of other site, stage 3 L89.893 Active 024570440 Problem COPD (chronic obstructive pulmonary disease) J44.9 Active 03599761 Problem Type 2 diabetes mellitus wit h diabetic peripheral angiopathy without gangrene E11.51 Active 136001906 Problem Back pain M54.9 Active 598588988 Problem PAD (peripheral artery disease) I73.9 Active 884027992 Problem Lumbar radiculopathy, chronic M54.16 Active 547813592 Problem Recurrent major depressive disorder, in full remission F33.42 Active 541380675 Problem halfway current use of insulin Z79.4 Active 101558948 ALLERGIES No Information ENCOUNTERS Encounter Location Date Diagnosis [facility] [address] [facility] [id number] [address] [place] [phone] Nov, Back pain M54.9 [facility] [address] [facility] [id number] [address] [address] Nov, Anxiety F41.9 [facility] [address] [facility] [id number] [address] [place] [address] Nov, [facility] [address] [facility] [id number] [address] [address] Oct, Back pain M54.9 [facility] [address] [id number] [address] [phone] 07 Oct, 2018 [facility] [address] [id number] [address] [id number] Oct, [facility] [address] [id number] [address] [place] [address] Oct, [facility] [address] [id number] [address] [address] September, Back pain M54.9 [facility] [address] [id number] [address] [place] [address] September, [facility] [address] [id number] [address] [place] [address] September, [facility] [address] [id number] [address] [id number] September, [facility] [address] [id number] [address] [place] [address] Aug, Back pain M54.9 [facility] [address] [id number] [address] [id number] Aug, Anxiety F41.9 [facility] [address] [id number] [address] [place] [address] Aug, [facility] [address] [id number] [address] [place] [address] Aug, Pressure ulcer of other site , stage 3 L89.893 and COPD (chronic obstructive pulmonary disease) J44.9 [facility] [address] [id number] [address] [place] [address] Aug, History of smoking Z87.891 [facility] [address] [id number] [address] [place] [address] Jul, Type 2 diabetes mellitus wit h diabetic peripheral angiopathy without gangrene E11.51 [facility] [address] [id number] [address] [address] Jul, Back pain M54.9 [facility] [address] [id number] [address] [place] [address] Jul, Anxiety F41.9 [facility] [address] [id number] [address] [place] [id number] Jul, [facility] [address] [id number] [address] [place] [address] 13 Jul, 2018 Back pain M54.9 [facility] [address] [id number] [address] [place] [address] Jul, Back pain M54.9 [facility] [address] [facility] [id number] [address] [place] [phone] Jul, Lumbar radiculopathy, chroni c M54.16 ; Hypertension I10 and Type 2 diabetes mellitus with diabetic peripheral angiopathy without gangrene E11.51 [facility] [address] [id number] [address] [place] [address] Jul, Back pain M54.9 [facility] [address] [facility] [id number] [address] [place] [address] Jul, Back pain M54.9 and Anxiety F41.9 [facility] [address] [facility] [id number] [address] [place] [address] Jul, [facility] [address] [id number] [address] [place] [address] May, Back pain M54.9 and Anxiety F41.9 [facility] [address] [id number] [address] [address] May, [facility] [address] [facility] [id number] [address] [place] [address] Apr, Radiculopathy of lumbar rhiannon on M54.16 ; Back pain M54.9 and Anxiety F41.9 [facility] [address] [id number] [address] [place] [address] Apr, Diabetes E11.9 ; Muscle spas m M62.838 and Lumbar radiculopathy, chronic M54.16 [facility] [address] [id number] [address] [place] [address] Apr, [facility] [address] [id number] [address] [place] [address] Apr, [facility] [address] [id number] [address] [place] [address] Mar, Back pain M54.9 and Anxiety F41.9 [facility] [address] [id number] [address] [place] [address] Mar, [facility] [address] [facility] [id number] [address] [address] Mar, [facility] [address] [id number] [address] [address] Mar, [facility] [address] [facility] [id number] [address] [place] [address] Mar, Encounter for immunization Z 23 [facility] [address] [facility] [id number] [address] [place] [address] Feb, Back pain M54.9 and Anxiety F41.9 [facility] [address] [id number] [address] [place] [address] Feb, Back pain M54.9 and Anxiety F41.9 [facility] [address] [id number] [address] [place] [address] Jan, Back pain M54.9 and Anxiety F41.9 [facility] [address] [facility] [id number] [address] [address] Jan, [facility] [address] [facility] [id number] [address] [place] [id number] Dec, [facility] [address] [id number] [address] [id number] Dec, Back pain M54.9 and Anxiety F41.9 [facility] [address] [facility] [id number] [address] [place] [address] Dec, Diabetes E11.9 ; Type 2 diab etes mellitus with diabetic peripheral angiopathy without gangrene E11.51 ; Lumbar radiculopathy, chronic M54.16 ; COPD (chronic obstructive pulmonary disease) J44.9 and Anxiety F41.9 [facility] [address] [facility] [id number] [address] [address] Dec, Back pain M54.9 and Anxiety F41.9 [place] [address] [facility] [id number] [address] [address] Nov, Back pain M54.9 and Anxiety F41.9 [place] [address] [place] [id number] [address] [address] Oct, [facility] [address] [facility] [id number] [address] [address] Oct, Back pain M54.9 and Anxiety F41.9 [place] [address] [facility] [id number] [address] [place] [address] September, Anxiety F41.9 and Back pain M54.9 [place] [address] [facility] [id number] [address] [place] [address] September, Diabetes E11.9 ; Hypertensio n I10 ; COPD (chronic obstructive pulmonary disease) J44.9 and Lumbar radiculopathy, chronic M54.16 [facility] [address] [facility] [id number] [address] [address] September, Anxiety F41.9 [place] [address] [facility] [id number] [address] [address] Aug, [place] [address] [facility] [id number] [address] [place] [address] Aug, [facility] [address] [id number] [address] [place] [address] Aug, Anxiety F41.9 and Back pain M54.9 [place] [address] [facility] [id number] [address] [place] [address] Aug, Medicare annual wellness vis it, initial Z00.00 ; COPD (chronic obstructive pulmonary disease) J44.9 ; PAD (peripheral artery disease) I73.9 ; Insulin long-term use Z79.4 ; Hypertension I10 ; Anxiety F41.9 ; Recurrent major depressive disorder, in full remission F33.42 ; Pressure ulcer of other site, stage 3 L89.893 ; Type 2 diabetes mellitus with diabetic peripheral angiopathy without gangrene E11.51 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 [place] [address] [facility] [id number] [address] [place] [address] Jul, Back pain M54.9 [place] [address] [facility] [id number] [address] [place] [phone] Jul, [place] [address] [id number] [address] [place] [address] Jul, Anxiety F41.9 and Back pain M54.9 [place] [address] [facility] [id number] [address] [place] [address] Jul, Diabetes E11.9 [place] [address] [facility] [id number] [address] [place] [address] May, [place] [address] [facility] [id number] [address] [place] [address] May, Diabetes E11.9 ; Anxiety F41 .9 ; Back pain M54.9 and COPD (chronic obstructive pulmonary disease) J44.9 [place] [address] [facility] [id number] [address] [place] [address] May, Back pain M54.9 [place] [address] [facility] [id number] [address] [place] [address] May, [facility] [address] [id number] [address] [place] [address] Apr, Back pain M54.9 [facility] [address] [id number] [address] [id number] 30 Mar, 2017 Back pain M54.9 [facility] [address] [id number] [address] [place] [address] Mar, [facility] [address] [id number] [address] [address] 16 Mar, 2017 [facility] [address] [id number] [address] [place] [id number] 14 Mar, 2017 Radiculopathy of lumbar rhiannon on M54.16 [facility] [address] [id number] [address] [place] [phone] 13 Mar, 2017 [facility] [address] [id number] [address] [place] [address] 07 Mar, 2017 Encounter for immunization Z 23 and Lumbar radiculopathy, chronic M54.16 [facility] [address] [id number] [address] [place] [address] Mar, Back pain M54.9 and Anxiety F41.9 [facility] [address] [id number] [address] [place] [phone] 10 Feb, 2017 Acute bilateral low back boy n with left-sided sciatica M54.42 and Acute bilateral low back pain with right-sided sciatica M54.41 [facility] [address] [id number] [address] [place] [id number] Feb, [facility] [address] [id number] [address] [place] [phone] Feb, Back pain M54.9 [facility] [address] [id number] [address] [place] [address] 05 Jan, 2017 Back pain M54.9 and Anxiety F41.9 [facility] [address] [id number] [address] [place] [phone] 05 Jan, 2017 Diabetes E11.9 [facility] [address] [id number] [address] [place] [address] Dec, Diabetes E11.9 ; Back pain M 54.9 ; Anxiety F41.9 and Insulin long- term use Z79.4 [facility] [address] [id number] [address] [place] [id number] Dec, Anxiety F41.9 [facility] [address] [id number] [address] [place] [address] Dec, Back pain M54.9 [facility] [address] [id number] [address] [address] Nov, Back pain M54.9 [facility] [address] [id number] [address] [place] [id number] Oct, Back pain M54.9 and Anxiety F41.9 [facility] [address] [id number] [address] [address] September, Back pain M54.9 [facility] [address] [id number] [address] [place] [address] September, Back pain M54.9 and Anxiety F41.9 [facility] [address] [facility] [id number] [address] [place] [address] Aug, Diabetes E11.9 ; Anxiety F41 .9 ; Back pain M54.9 and PAD (peripheral artery disease) I73.9 [facility] [address] [id number] [address] [address] Aug, Anxiety F41.9 [facility] [address] [id number] [address] [place] [address] Aug, Back pain M54.9 [facility] [address] [facility] [id number] [address] [place] [address] Jul, Back pain M54.9 [facility] [address] [id number] [address] [place] [address] Jul, Back pain M54.9 [facility] [address] [id number] [address] [address] 23 Jul, 2016 Back pain M54.9 [facility] [address] [id number] [address] [phone] 16 Jul, 2016 Dorsalgia M54.9 [facility] [address] [id number] [address] [phone] 14 Jul, 2016 [facility] [address] [id number] [address] [place] [address] May, Back pain M54.9 [facility] [address] [facility] [id number] [address] [place] [address] May, Diabetes E11.9 ; Anxiety F41 .9 ; Port catheter in place Z95.828 ; Encounter for immunization Z23 and Insulin long-term use Z79.4 [facility] [address] [id number] [address] [place] [address] Apr, Back pain M54.9 [facility] [address] [id number] [address] [place] [address] Apr, Back pain M54.9 [facility] [address] [id number] [address] [place] [address] Apr, [facility] [address] [id number] [address] [address] Apr, Back pain M54.9 [facility] [address] [id number] [address] [place] [id number] Mar, COPD (chronic obstructive pu lmonary disease) J44.9 [facility] [address] [id number] [address] [place] [id number] Feb, [facility] [address] [id number] [address] [address] 30 Jan, 2016 [facility] [address] [id number] [address] [phone] 20 Jan, 2016 [facility] [address] [id number] [address] [place] [phone] 07 Jan, 2016 [facility] [address] [id number] [address] [phone] 02 Jan, 2016 [facility] [address] [id number] [address] [place] [address] Dec, Diabetes E11.9 ; Hypoxia R09 .02 and Back pain M54.9 [facility] [address] [id number] [address] [place] [phone] Dec, [facility] [address] [id number] [address] [place] [id number] Nov, [facility] [address] [id number] [address] [place] [address] Oct, Anxiety F41.9 [facility] [address] [id number] [address] [place] [address] Oct, Back pain M54.9 [facility] [address] [id number] [address] [place] [address] September, Back pain M54.9 [facility] [address] [id number] [address] [place] [address] September, Diabetes E11.9 [facility] [address] [id number] [address] [place] [address] September, [facility] [address] [id number] [address] [place] [address] September, Diabetes E11.9 ; Insulin sarai g-term use Z79.4 and Back pain M54.9 [facility] [address] [id number] [address] [place] [address] Aug, Back pain M54.9 [facility] [address] [address] Aug, Back pain M54.9 ; Anxiety F4 1.9 and Arthropathy, unspecified M12.9 [facility] [address] [address] Jul, Back pain M54.9 [facility] [address] [address] Jul, Anxiety F41.9 [facility] [address] [id number] Jul, Back pain M54.9 [facility] [address] [address] Jul, [facility] [address] [address] Jul, [facility] [address] [address] May, Back pain M54.9 ; Diabetes E 11.9 ; Insulin long-term use Z79.4 ; COPD (chronic obstructive pulmonary disease) J44.9 and Hypertension I10 [place] [address] [address] May, Chronic pain G89.29 [place] [address] [address] Apr, [place] [address] [id number] Apr, [facility] [address] [address] Mar, [place] [address] [id number] Mar, Encounter for immunization Z 23 and Diabetes E11.9 [facility] [address] [id number] Feb, [facility] [address] [id number] [address] [place] [id number] Feb, [facility] [address] [id number] [address] [place] [address], [place] [address] Jan, [facility] [address] [id number] [address] [place] [address], [place] [address] Jan, [facility] [address] [id number] [address] [place] [address], [place] [address] Dec, [facility] [address] [id number] [address] [place] [phone] Dec, [facility] [address] [id number] [address] [place] [address], [place] [address] Dec, Unspecified arthropathy, sit e unspecified 716.90 and Diabetes mellitus type 2, uncontrolled 250.02 [facility] [address] [id number] [address] [place] [address], [place] [address] Dec, [facility] [address] [id number] [address] [place] [phone] Nov, [facility] [address] [id number] [address] [place] [phone] Oct, [facility] [address] [id number] [address] [place] [address] September, [facility] [address] [id number] [address] [place] [phone] September, [facility] [address] [id number] [address] [place] [id number] September, [facility] [address] [id number] [address] [place] [id number] September, [facility] [address] [id number] [address] [id number] Aug, [facility] [address] [id number] [address] [id number] Aug, [facility] [address] [id number] [address] [place] [address], [place] [address] 18 Jul, 2014 [facility] [address] [id number] [address] [place] [address], [place] [id number] 18 Jul, 2014 [facility] [address] [id number] [address] [place] [address], [place] [address] 16 Jul, 2014 [facility] [address] [id number] [address] [place] [address], [place] [address] 16 Jul, 2014 [facility] [address] [id number] [address] [place] [address], [place] [address] 16 Jul, 2014 [facility] [address] [id number] [address] [place] [address], [place] [address] 16 Jul, 2014 [facility] [address] [id number] [address] [place] [address], [place] [id number] 16 Jul, 2014 [facility] [address] [id number] [address] [place] [address], [place] [address] 16 Jul, 2014 [facility] [address] [id number] [address] [place] [address], [place] [address] 16 Jul, 2014 [facility] [address] [id number] [address] [place] [address], [place] [address] 13 Jul, 2014 [facility] [address] [id number] [address] [place] [address], [place] [address] 13 Jul, 2014 [facility] [address] [id number] [address] [place] [address], [place] [address] 09 Jul, 2014 [facility] [address] [id number] [address] [place] [address], [place] [address] 09 Jul, 2014 [facility] [address] [id number] [address] [place] [address], [place] [address] 17 Jul, 2014 [facility] [address] [id number] [address] [place] [address], [place] [address] 17 Jul, 2014 [facility] [address] [id number] [address] [id number] 16 Jul, 2014 [facility] [address] [id number] [address] [place] [address], [place] [address] 16 Jul, 2014 [facility] [address] [id number] [address] [place] [address], [place] [address] 16 Jul, 2014 [facility] [address] [id number] [address] [place] [address], [place] [address] 16 Jul, 2014 [facility] [address] [id number] [address] [place] [address], [place] [address] 16 Jul, 2014 [facility] [address] [id number] [address] [place] [address], [place] [address] 16 Jul, 2014 [facility] [address] [address] [id number] [address] [place] [address], [place] [address] 16 Jul, 2014 [facility] [address] [id number] [address] [place] [address], [place] [address] 16 Jul, 2014 [facility] [address] [id number] [address] [place] [address], [place] [address] 16 Jul, 2014 [facility] [address] [id number] [address] [place] [address], [place] [address] 16 Jul, 2014 [facility] [address] [id number] [address] [address] 16 Jul, 2014 [facility] [address] [id number] [address] [address] Jul, 2014 [facility] [address] [id number] [address] [place] [address], [place] [address] 16 Jul, 2014 [facility] [address] [id number] [address] [place] [address], [place] [address] 16 Jul, 2014 [facility] [address] [id number] [address] [id number] May, [facility] [address] [id number] [address] [address] May, [facility] [address] [id number] [address] [place] [address], [place] [address] May, [facility] [address] [id number] [address] [place] [address], [place] [address] May, [facility] [address] [id number] [address] [place] [address], [place] [address] May, [facility] [address] [id number] [address] [place] [address], [place] [address] May, [facility] [address] [id number] [address] [place] [address], [place] [address] May, [facility] [address] [id number] [address] [place] [address], [place] [address] May, [facility] [address] [id number] [address] [place] [address], [place] [address] May, [facility] [address] [id number] [address] [place] [address], [place] [address] May, [facility] [address] [id number] [address] [place] [address], [place] [address] Apr, [facility] [address] [id number] [address] [place] [address], [place] [address] Apr, [facility] [address] [id number] [address] [place] [address], [place] [address] Apr, [facility] [address] [id number] [address] [place] [address], [place] [address] Apr, [facility] [address] [id number] [address] [place] [address], [place] [address] Apr, [facility] [address] [id number] [address] [place] [address], [place] [address] Apr, [facility] [address] [id number] [address] [place] [address], [place] [address] Mar, [facility] [address] [id number] [address] [place] [address], [place] [address] Mar, [facility] [address] [id number] [address] [place] [address], [place] [address] Mar, [facility] [address] [id number] [address] [place] [address], [place] [address] Mar, [facility] [address] [id number] [address] [place] [address], [place] [address] Mar, [facility] [address] [id number] [address] [place] [address], [place] [address] Mar, [facility] [address] [id number] [address] [place] [address], [place] [address] Mar, [facility] [address] [id number] [address] [place] [address], [place] [address] Mar, [facility] [address] [id number] [address] [place] [address], [place] [address] Mar, [facility] [address] [id number] [address] [place] [address], [place] [address] Mar, [facility] [address] [id number] [address] [place] [address], [place] [address] Mar, [facility] [address] [id number] [address] [place] [address], [place] [address] Feb, [facility] [address] [id number] [address] [place] [address], [place] [address] 30 Feb, 2014 [facility] [address] [id number] [address] [place] [address], [place] [address] Feb, [facility] [address] [id number] [address] [place] [address], [place] [address] Feb, [facility] [address] [id number] [address] [place] [address], [place] [address] Feb, [facility] [address] [id number] [address] [place] [address], [place] [address] Feb, [facility] [address] [id number] [address] [place] [address], [place] [address] Feb, [facility] [address] [id number] [address] [place] [address], [place] [address] Feb, [facility] [address] [id number] [address] [place] [address], [place] [address] Feb, [facility] [address] [id number] [address] [place] [address], [place] [address] Feb, [facility] [address] [id number] [address] [place] [address], [place] [address] Jan, [facility] [address] [id number] [address] [place] [address], [place] [address] 22 Jan, 2014 [facility] [address] [id number] [address] [place] [address], [place] [address] 16 Jan, 2014 [facility] [address] [id number] [address] [place] [address], [place] [address] 16 Jan, 2014 [facility] [address] [id number] [address] [place] [address], [place] [address] Jan, [facility] [address] [id number] [address] [place] [address], [place] [address] Jan, [facility] [address] [id number] [address] [place] [address], [place] [address] Jan, [facility] [address] [id number] [address] [place] [address], [place] [address] Dec, [facility] [address] [id number] [address] [place] [address], [place] [address] Dec, [facility] [address] [id number] [address] [place] [address], [place] [address] Dec, [facility] [address] [id number] [address] [place] [address], [place] [address] Dec, [facility] [address] [id number] [address] [place] [address], [place] [address] Dec, [facility] [address] [id number] [address] [place] [address], [place] [address] Dec, [facility] [address] [id number] [address] [place] [address], [place] [address] Dec, [facility] [address] [id number] [address] [place] [address], [place] [address] Dec, [facility] [address] [id number] [address] [place] [address], [place] [address] Oct, [facility] [address] [id number] [address] [place] [address], [place] [address] Oct, [facility] [address] [id number] [address] [place] [address], [place] [address] September, [facility] [address] [id number] [address] [place] [address], [place] [address] September, [facility] [address] [id number] [address] [place] [address], [place] [address] September, [facility] [address] [id number] [address] [place] [address], [place] [address] September, [facility] [address] [id number] [address] [place] [address], [place] [address] September, [facility] [address] [id number] [address] [place] [address], [place] [address] September, [facility] [address] [id number] [address] [place] [address], [place] [address] September, [facility] [address] [id number] [address] [place] [address], [place] [address] Aug, [facility] [address] [id number] [address] [place] [address], [place] [address] Aug, [facility] [address] [id number] [address] [place] [address], [place] [address] Jul, [facility] [address] [id number] [address] [place] [address], [place] [address] 24 Jul, 2013 [facility] [address] [id number] [address] [place] [address], [place] [address] Jul, [facility] [address] [id number] [address] [place] [address], [place] [address] 17 Jul, 2013 [facility] [address] [id number] [address] [place] [address], [place] [address] 14 Jul, 2013 [facility] [address] [id number] [address] [place] [address], [place] [address] 14 Jul, 2013 [facility] [address] [id number] [address] [place] [address], [place] [address] Jul, [facility] [address] [id number] [address] [place] [address], [place] [address] Jul, [facility] [address] [id number] [address] [place] [address], [place] [address] 15 May, 2013 [facility] [address] [id number] [address] [place] [address], [place] [address] May, [facility] [address] [id number] [address] [place] [address], [place] [address] May, [facility] [address] [id number] [address] [place] [address], [place] [address] May, [facility] [address] [id number] [address] [place] [address], [place] [address] Apr, [facility] [address] [id number] [address] [place] [address], [place] [address] Mar, [facility] [address] [id number] [address] [place] [address], [place] [address] Mar, [facility] [address] [id number] [address] [place] [address], [place] [address] Mar, [facility] [address] [id number] [address] [place] [address] Mar, [facility] [address] [id number] [address] [place] [address], [place] [address] Mar, [facility] [address] [id number] [address] [place] [address] Mar, [facility] [address] [id number] [address] [place] [address] Mar, [facility] [address] [id number] [address] [place] [address] Mar, [facility] [address] [id number] [address] [place] [address], [place] [address] Mar, [facility] [address] [id number] [address] [place] [address] Mar, [facility] [address] [id number] [address] [place] [address] Mar, [facility] [address] [id number] [address] [place] [address] Mar, [facility] [address] [id number] [address] [place] [address] Feb, [facility] [address] [id number] [address] [place] [address] Feb, [facility] [address] [id number] [address] [place] [address] Feb, [facility] [address] [id number] [address] [place] [id number] Feb, [facility] [address] [id number] [address] [id number] Feb, [facility] [address] [id number] [address] [place] [address] Jan, [facility] [address] [id number] [address] [address] Dec, [facility] [address] [id number] [address] [place] [address], [place] [address] Dec, [facility] [address] [id number] [address] [place] [address], [place] [address] Dec, [facility] [address] [id number] [address] [place] [address], [place] [address] Nov, [facility] [address] [id number] [address] [place] [address], [place] [address] Nov, [facility] [address] [id number] [address] [place] [address], [place] [address] Nov, [facility] [address] [id number] [address] [place] [address], [place] [address] Oct, [facility] [address] [id number] [address] [place] [address], [place] [address] Oct, [facility] [address] [id number] [address] [place] [address], [place] [address] Oct, [facility] [address] [id number] [address] [place] [address], [place] [address] September, [facility] [address] [id number] [address] [place] [address], [place] [address] September, [facility] [address] [id number] [address] [place] [address], [place] [address] September, [facility] [address] [id number] [address] [place] [address], [place] [address] September, [facility] [address] [id number] [address] [place] [address], [place] [address] September, [facility] [address] [id number] [address] [place] [address], [place] [address] Aug, [facility] [address] [id number] [address] [place] [address], [place] [address] Aug, [facility] [address] [id number] [address] [place] [address], [place] [address] Aug, [facility] [address] [id number] [address] [place] [address], [place] [address] Jul, [facility] [address] [id number] [address] [place] [address], [place] [address] Jul, [facility] [address] [id number] [address] [place] [address], [place] [address] Jul, [facility] [address] [id number] [address] [place] [address], [place] [address] Jul, [facility] [address] [id number] [address] [place] [address], [place] [address] Jul, [facility] [address] [id number] [address] [place] [address], [place] [address] Jul, [facility] [address] [id number] [address] [place] [address], [place] [address] Jul, [facility] [address] [id number] [address] [place] [address], [place] [address] May, [facility] [address] [id number] [address] [place] [address], [place] [address] May, [facility] [address] [id number] [address] [place] [address], [place] [address] May, [facility] [address] [id number] [address] [place] [address], [place] [address] Apr, [facility] [address] [id number] [address] [place] [address], [place] [address] Apr, [facility] [address] [id number] [address] [place] [address], [place] [address] Apr, [facility] [address] [id number] [address] [place] [address], [place] [address] Apr, [facility] [address] [id number] [address] [place] [address], [place] [address] Apr, [facility] [address] [id number] [address] [place] [address], [place] [address] Mar, [facility] [address] [id number] [address] [place] [address], [place] [address] Mar, [facility] [address] [id number] [address] [place] [address], [place] [address] Mar, [facility] [address] [id number] [address] [place] [address], [place] [address] Mar, [facility] [address] [id number] [address] [place] [address], [place] [address] Feb, [facility] [address] [id number] [address] [place] [address], [place] [address] Feb, [facility] [address] [id number] [address] [place] [address], [place] [address] Feb, [facility] [address] [id number] [address] [place] [address], [place] [address] Feb, [facility] [address] [id number] [address] [place] [address], [place] [address] Feb, [facility] [address] [id number] [address] [place] [address], [place] [address] Jan, [facility] [address] [id number] [address] [place] [address], [place] [address] Dec, [facility] [address] [id number] [address] [place] [address], [place] [address] Dec, [facility] [address] [id number] [address] [place] [address], [place] [address] Dec, [facility] [address] [id number] [address] [place] [address], [place] [address] Nov, [facility] [address] [id number] [address] [place] [address], [place] [address] Nov, [facility] [address] [id number] [address] [place] [address], [place] [address] Nov, [facility] [address] [id number] [address] [place] [address], [place] [address] Oct, [facility] [address] [id number] [address] [place] [address], [place] [address] Oct, [facility] [address] [id number] [address] [place] [address], [place] [address] Oct, [facility] [address] [id number] [address] [place] [address], [place] [address] Oct, [facility] [address] [id number] [address] [place] [address], [place] [address] September, [facility] [address] [id number] [address] [place] [address], [place] [address] September, [facility] [address] [id number] [address] [place] [address], [place] [address] Aug, [facility] [address] [id number] [address] [place] [address], [place] [address] Aug, [facility] [address] [id number] [address] [place] [address], [place] [address] Aug, [facility] [address] [id number] [address] [place] [address], [place] [address] Aug, [facility] [address] [id number] [address] [place] [address], [place] [address] Aug, [facility] [address] [id number] [address] [place] [address], [place] [address] Aug, [facility] [address] [id number] [address] [place] [address], [place] [address] Aug, [facility] [address] [id number] [address] [place] [address], [place] [address] Jul, [facility] [address] [id number] [address] [place] [address], [place] [address] Jul, [facility] [address] [id number] [address] [place] [id number] Jul, [facility] [address] [id number] [address] [place] [phone] May, [facility] [address] [id number] [address] [place] [phone] May, [facility] [address] [id number] [address] [place] [phone] May, [facility] [address] [id number] [address] [place] [id number] Apr, [facility] [address] [id number] [address] [place] [phone] Apr, [facility] [address] [id number] [address] [place] [phone] Mar, [facility] [address] [id number] [address] [place] [phone] Mar, [facility] [address] [id number] [address] [place] [phone] Mar, [facility] [address] [id number] [address] [place] [phone] Mar, [facility] [address] [id number] [address] [place] [phone] Mar, [facility] [address] [id number] [address] [place] [id number] Mar, [facility] [address] [id number] [address] [place] [phone] Feb, [facility] [address] [id number] [address] [place] [phone] Feb, [facility] [address] [id number] [address] [place] [id number] Feb, IMMUNIZATIONS No Known Immunizations SOCIAL HISTORY Never Assessed REASON FOR VISIT lyrica PLAN OF CARE VITAL SIGNS MEDICATIONS Medication Instructions Dosage Frequency Start Date End Date Duration S tatus Lyrica 225 mg Orally Twice a day [...]
--- OUTSIDE RECORDS SUMMARY | 2020-01-03 07:49 | XMS REPORT ---
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 [employer] Name Role Phone FERNY SILVERIO Unavailable PROBLEMS Type Condition ICD9-CM Code PLZ91-TM Code Onset Dates Condition S tatus SNOMED Code Problem Insulin long-term use Z79.4 Active 871491274 Problem Hypertension I10 Active 6932327 3 Problem Diabetes E11.9 Active 78750367 Problem Hypoxia R09.02 Active 093406227 Problem Anxiety F41.9 Active 42841455 Problem Port catheter in place Z95.828 Active 641272395 Problem Pressure ulcer of other site, stage 3 L89.893 Active 289624044 Problem COPD (chronic obstructive pulmonary disease) J44.9 Active 12732581 Problem Type 2 diabetes mellitus wit h diabetic peripheral angiopathy without gangrene E11.51 Active 888491734 Problem Back pain M54.9 Active 334392449 Problem PAD (peripheral artery disease) I73.9 Active 318814072 Problem Lumbar radiculopathy, chronic M54.16 Active 421926477 Problem Recurrent major depressive disorder, in full remission F33.42 Active 103388195 Problem [facility] current use of insulin Z79.4 Active [id number] ALLERGIES No Information ENCOUNTERS Encounter Location Date Diagnosis [facility] [address] [facility] [id number] [address] [place] [phone] Dec, [facility] [address] [facility] [id number] [address] [place] [phone] Nov, [facility] [address] [facility] [id number] [address] [place] [address] Nov, Back pain M54.9 [facility] [address] [facility] [id number] [address] [place] [phone] Nov, Anxiety F41.9 [facility] [address] [id number] [address] [place] [phone] Nov, [facility] [address] [id number] [address] [place] [address] Oct, Back pain M54.9 [facility] [address] [id number] [address] [place] [phone] Oct, [facility] [address] [id number] [address] [place] [phone] Oct, [facility] [address] [id number] [address] [place] [phone] Oct, [facility] [address] [id number] [address] [place] [phone] September, Back pain M54.9 [facility] [address] [id number] [address] [place] [phone] September, [facility] [address] [id number] [address] [place] [address] September, [facility] [address] [id number] [address] [place] [phone] September, [facility] [address] [id number] [address] [place] [address] Aug, Back pain M54.9 [facility] [address] [id number] [address] [place] [phone] Aug, Anxiety F41.9 [facility] [address] [id number] [address] [place] [phone] Aug, [facility] [address] [id number] [address] [place] [phone] Aug, Pressure ulcer of other site , stage 3 L89.893 and COPD (chronic obstructive pulmonary disease) J44.9 [facility] [address] [id number] [address] [place] [address] Aug, History of smoking Z87.891 [facility] [address] [id number] [address] [place] [phone] Jul, Type 2 diabetes mellitus wit h diabetic peripheral angiopathy without gangrene E11.51 [facility] [address] [id number] [address] [place] [phone] Jul, Back pain M54.9 [facility] [address] [id number] [address] [place] [phone] Jul, Anxiety F41.9 [facility] [address] [id number] [address] [place] [phone] Jul, [facility] [address] [id number] [address] [place] [phone] Jul, Back pain M54.9 [facility] [address] [id number] [address] [place] [phone] Jul, Back pain M54.9 [facility] [address] [id number] [address] [place] [address] Jul, Lumbar radiculopathy, chroni c M54.16 ; Hypertension I10 and Type 2 diabetes mellitus with diabetic peripheral angiopathy without gangrene E11.51 [facility] [address] [id number] [address] [place] [address] Jul, Back pain M54.9 [facility] [address] [id number] [address] [place] [address] Jul, Back pain M54.9 and Anxiety F41.9 [facility] [address] [id number] [address] [place] [address] Jul, [facility] [address] [id number] [address] [place] [address] May, Back pain M54.9 and Anxiety F41.9 [facility] [address] [id number] [address] [place] [address] May, [facility] [address] [id number] [address] [place] [address] Apr, Radiculopathy of lumbar rhiannon on M54.16 ; Back pain M54.9 and Anxiety F41.9 [facility] [address] [id number] [address] [place] [address] Apr, Diabetes E11.9 ; Muscle spas m M62.838 and Lumbar radiculopathy, chronic M54.16 [facility] [address] [id number] [address] [place] [phone] 17 Apr, 2018 [facility] [address] [id number] [address] [place] [phone] Apr, [facility] [address] [id number] [address] [place] [address] Mar, Back pain M54.9 and Anxiety F41.9 [facility] [address] [id number] [address] [place] [phone] Mar, [facility] [address] [id number] [address] [place] [phone] Mar, [facility] [address] [id number] [address] [place] [phone] Mar, [facility] [address] [id number] [address] [place] [phone] Mar, Encounter for immunization Z 23 [facility] [address] [id number] [address] [place] [phone] Feb, Back pain M54.9 and Anxiety F41.9 [facility] [address] [id number] [address] [place] [phone] 04 Feb, 2018 Back pain M54.9 and Anxiety F41.9 [facility] [address] [id number] [address] [place] [phone] 06 Jan, 2018 Back pain M54.9 and Anxiety F41.9 [facility] [address] [id number] [address] [place] [address] Jan, [facility] [address] [id number] [address] [place] [phone] Dec, [facility] [address] [facility] [id number] [address] [place] [phone] Dec, Back pain M54.9 and Anxiety F41.9 [facility] [address] [facility] [id number] [address] [place] [address] Dec, Diabetes E11.9 ; Type 2 diab etes mellitus with diabetic peripheral angiopathy without gangrene E11.51 ; Lumbar radiculopathy, chronic M54.16 ; COPD (chronic obstructive pulmonary disease) J44.9 and Anxiety F41.9 [facility] [address] [facility] [id number] [address] [place] [phone] Dec, Back pain M54.9 and Anxiety F41.9 [place] [address] [facility] [id number] [address] [place] [phone] Nov, Back pain M54.9 and Anxiety F41.9 [facility] [address] [facility] [id number] [address] [place] [phone] Oct, [facility] [address] [facility] [id number] [address] [place] [phone] Oct, Back pain M54.9 and Anxiety F41.9 [facility] [address] [facility] [id number] [address] [place] [phone] September, Anxiety F41.9 and Back pain M54.9 [facility] [address] [facility] [id number] [address] [place] [phone] September, Diabetes E11.9 ; Hypertensio n I10 ; COPD (chronic obstructive pulmonary disease) J44.9 and Lumbar radiculopathy, chronic M54.16 [facility] [address] [facility] [id number] [address] [place] [address] September, Anxiety F41.9 [facility] [address] [facility] [id number] [address] [place] [phone] Aug, [facility] [address] [facility] [id number] [address] [place] [phone] Aug, [facility] [address] [facility] [id number] [address] [place] [phone] Aug, Anxiety F41.9 and Back pain M54.9 [facility] [address] [facility] [id number] [address] [place] [phone] Aug, Medicare annual wellness vis it, initial [...] 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 [facility] [address] [facility] [id number] [address] [place] [phone] Jul, Back pain M54.9 [place] [address] [facility] [id number] [address] [place] [phone] Jul, [facility] [address] [facility] [id number] [address] [place] [address] Jul, Anxiety F41.9 and Back pain M54.9 [facility] [address] [facility] [id number] [address] [place] [phone] Jul, Diabetes E11.9 [facility] [address] [facility] [id number] [address] [place] [phone] May, [facility] [address] [facility] [id number] [address] [place] [phone] May, Diabetes E11.9 ; Anxiety F41 .9 ; Back pain M54.9 and COPD (chronic obstructive pulmonary disease) J44.9 [facility] [address] [id number] [address] [place] [phone] May, Back pain M54.9 [facility] [address] [id number] [address] [place] [phone] May, [facility] [address] [id number] [address] [place] [phone] Apr, Back pain M54.9 [facility] [address] [id number] [address] [place] [address] Mar, Back pain M54.9 [facility] [address] [id number] [address] [place] [phone] Mar, [facility] [address] [id number] [address] [place] [phone] 16 Mar, 2017 [facility] [address] [id number] [address] [place] [phone] 14 Mar, 2017 Radiculopathy of lumbar rhiannon on M54.16 [facility] [address] [id number] [address] [place] [phone] 13 Mar, 2017 [facility] [address] [id number] [address] [place] [phone] 07 Mar, 2017 Encounter for immunization Z 23 and Lumbar radiculopathy, chronic M54.16 [facility] [address] [id number] [address] [place] [id number] Mar, Back pain M54.9 and Anxiety F41.9 [facility] [address] [id number] [address] [place] [phone] 10 Feb, 2017 Acute bilateral low back boy n with left-sided sciatica M54.42 and Acute bilateral low back pain with right-sided sciatica M54.41 [facility] [address] [id number] [address] [place] [phone] Feb, [facility] [address] [id number] [address] [place] [phone] Feb, Back pain M54.9 [facility] [address] [id number] [address] [place] [phone] 05 Jan, 2017 Back pain M54.9 and Anxiety F41.9 [facility] [address] [id number] [address] [place] [phone] 05 Jan, 2017 Diabetes E11.9 [facility] [address] [id number] [address] [place] [address] Dec, Diabetes E11.9 ; Back pain M 54.9 ; Anxiety F41.9 and Insulin long- term use Z79.4 [facility] [address] [id number] [address] [place] [phone] Dec, Anxiety F41.9 [facility] [address] [id number] [address] [place] [address] Dec, Back pain M54.9 [facility] [address] [id number] [address] [place] [address] Nov, Back pain M54.9 [facility] [address] [id number] [address] [place] [phone] Oct, Back pain M54.9 and Anxiety F41.9 [facility] [address] [id number] [address] [place] [phone] September, Back pain M54.9 [facility] [address] [id number] [address] [place] [phone] September, Back pain M54.9 and Anxiety F41.9 [facility] [address] [id number] [address] [place] [address] Aug, Diabetes E11.9 ; Anxiety F41 .9 ; Back pain M54.9 and PAD (peripheral artery disease) I73.9 [facility] [address] [id number] [address] [place] [phone] Aug, Anxiety F41.9 [facility] [address] [id number] [address] [place] [address] Aug, Back pain M54.9 [facility] [address] [id number] [address] [place] [address] Jul, Back pain M54.9 [facility] [address] [id number] [address] [place] [phone] Jul, Back pain M54.9 [facility] [address] [id number] [address] [place] [phone] Jul, Back pain M54.9 [facility] [address] [id number] [address] [place] [phone] Jul, Dorsalgia M54.9 [facility] [address] [id number] [address] [place] [phone] Jul, [facility] [address] [id number] [address] [place] [address] May, Back pain M54.9 [facility] [address] [id number] [address] [place] [address] May, Diabetes E11.9 ; Anxiety F41 .9 ; Port catheter in place Z95.828 ; Encounter for immunization Z23 and Insulin long-term use Z79.4 [facility] [address] [id number] [address] [place] [phone] Apr, Back pain M54.9 [facility] [address] [id number] [address] [place] [address] Apr, Back pain M54.9 [facility] [address] [id number] [address] [place] [phone] Apr, [facility] [address] [id number] [address] [place] [address] Apr, Back pain M54.9 [facility] [address] [id number] [address] [place] [phone] Mar, COPD (chronic obstructive pu lmonary disease) J44.9 [facility] [address] [id number] [address] [place] [phone] Feb, [facility] [address] [id number] [address] [place] [phone] 30 Jan, 2016 [facility] [address] [id number] [address] [place] [phone] 20 Jan, 2016 [facility] [address] [id number] [address] [place] [phone] 07 Jan, 2016 [facility] [address] [id number] [address] [place] [phone] Jan, [facility] [address] [id number] [address] [place] [phone] Dec, Diabetes E11.9 ; Hypoxia R09 .02 and Back pain M54.9 [facility] [address] [id number] [address] [place] [phone] Dec, [facility] [address] [id number] [address] [place] [phone] Nov, [facility] [address] [id number] [address] [place] [phone] Oct, Anxiety F41.9 [facility] [address] [id number] [address] [place] [address] Oct, Back pain M54.9 [facility] [address] [id number] [address] [place] [address] September, Back pain M54.9 [facility] [address] [id number] [address] [place] [address] September, Diabetes E11.9 [facility] [address] [id number] [address] [place] [phone] September, [facility] [address] [id number] [address] [place] [phone] September, Diabetes E11.9 ; Insulin sarai g-term use Z79.4 and Back pain M54.9 [facility] [address] [id number] [address] [place] [phone] Aug, Back pain M54.9 [facility] [address] [facility] [id number] [address] [place] [phone] Aug, Back pain M54.9 ; Anxiety F4 1.9 and Arthropathy, unspecified M12.9 [facility] [address] [id number] [address] [place] [id number] Jul, Back pain M54.9 [facility] [address] [facility] [id number] [address] [place] [phone] Jul, Anxiety F41.9 [facility] [address] [facility] [id number] [address] [place] [phone] Jul, Back pain M54.9 [facility] [address] [facility] [id number] [address] [place] [phone] Jul, [facility] [address] [facility] [id number] [address] [place] [phone] Jul, [facility] [address] [place] [id number] [address] [place] [address] May, Back pain M54.9 ; Diabetes E 11.9 ; Insulin long-term use Z79.4 ; COPD (chronic obstructive pulmonary disease) J44.9 and Hypertension I10 [facility] [address] [facility] [id number] [address] [place] [phone] May, Chronic pain G89.29 [facility] [address] [facility] [id number] [address] [place] [phone] Apr, [facility] [address] [place] [id number] [address] [place] [phone] Apr, [facility] [address] [place] [id number] [address] [place] [phone] Mar, [facility] [address] [place] [id number] [address] [place] [phone] Mar, Encounter for immunization Z 23 and Diabetes E11.9 [facility] [address] [id number] [address] [place] [phone] Feb, [facility] [address] [id number] [address] [place] [phone] Feb, [facility] [address] [id number] [address] [place] [phone] Jan, [facility] [address] [id number] [address] [place] [phone] Jan, [facility] [address] [id number] [address] [place] [id number] Dec, [facility] [address] [facility] [id number] [address] [place] [phone] Dec, [facility] [address] [facility] [id number] [address] [place] [id number] Dec, Unspecified arthropathy, sit e unspecified 716.90 and Diabetes mellitus type 2, uncontrolled 250.02 [facility] [address] [id number] [address] [place] [phone] Dec, [facility] [address] [facility] [id number] [address] [place] [phone] Nov, [facility] [address] [id number] [address] [place] [phone] Oct, [facility] [address] [id number] [address] [place] [phone] September, [facility] [address] [id number] [address] [place] [phone] September, [facility] [address] [facility] [id number] [address] [place] [id number] September, [facility] [address] [facility] [id number] [address] [place] [phone] September, [facility] [address] [id number] [address] [place] [address], [place] [phone] 14 Aug, 2014 [facility] [address] [id number] [address] [place] [address], [place] [phone] 13 Aug, 2014 [facility] [address] [id number] [address] [place] [address], [place] [phone] 18 Jul, 2014 [facility] [address] [id number] [address] [place] [address], [place] [phone] 18 Jul, 2014 [facility] [address] [id number] [address] [place] [address], [place] [phone] 16 Jul, 2014 [facility] [address] [id number] [address] [place] [address], [place] [phone] 16 Jul, 2014 [facility] [address] [id number] [address] [place] [address], [place] [id number] 16 Jul, 2014 [facility] [address] [id number] [address] [place] [address], [place] [address] 16 Jul, 2014 [facility] [address] [id number] [address] [place] [address], [place] [address] 16 Jul, 2014 [facility] [address] [id number] [address] [place] [address], [place] [address] 16 Jul, 2014 [facility] [address] [id number] [address] [place] [address], [place] [address] 16 Jul, 2014 [facility] [address] [id number] [address] [place] [address], [place] [address] 13 Jul, 2014 [facility] [address] [id number] [address] [place] [address], [place] [address] 13 Jul, 2014 [facility] [address] [id number] [address] [place] [address], [place] [address] 09 Jul, 2014 [facility] [address] [id number] [address] [place] [address], [place] [address] 09 Jul, 2014 [facility] [address] [id number] [address] [place] [address] 17 Jul, 2014 [facility] [address] [id number] [address] [place] [address], [place] [address] 17 Jul, 2014 [facility] [address] [id number] [address] [place] [address], [place] [address] 16 Jul, 2014 [facility] [address] [id number] [address] [place] [address], [place] [address] 16 Jul, 2014 [facility] [address] [id number] [address] [place] [address], [place] [address] 16 Jul, 2014 [facility] [address] [id number] [address] [place] [address], [place] [address] 16 Jul, 2014 [facility] [address] [id number] [address] [place] [address], [place] [address] 16 Jul, 2014 [facility] [address] [id number] [address] [place] [address], [place] [address] 16 Jul, 2014 [facility] [address] [id number] [address] [place] [address], [place] [address] 16 Jul, 2014 [facility] [address] [id number] [address] [place] [address], [place] [address] 16 Jul, 2014 [facility] [address] [id number] [address] [place] [address] 16 Jul, 2014 [facility] [address] [id number] [address] [place] [address], [place] [address] 16 Jul, 2014 [facility] [address] [id number] [address] [place] [address] 16 Jul, 2014 [facility] [address] [id number] [address] [place] [address], [place] [address] 16 Jul, 2014 [facility] [address] [id number] [address] [place] [address] 16 Jul, 2014 [facility] [address] [id number] [address] [place] [address] Jul, [facility] [address] [id number] [address] [place] [address], [place] [address] May, [facility] [address] [id number] [address] [place] [address], [place] [address] May, [facility] [address] [id number] [address] [place] [address], [place] [address] May, [facility] [address] [id number] [address] [place] [address], [place] [address] May, [facility] [address] [id number] [address] [place] [address], [place] [address] May, [facility] [address] [id number] [address] [place] [address], [place] [address] May, [facility] [address] [id number] [address] [place] [address], [place] [address] May, [facility] [address] [id number] [address] [place] [address], [place] [address] May, [facility] [address] [id number] [address] [place] [address], [place] [address] May, [facility] [address] [id number] [address] [place] [address], [place] [address] May, [facility] [address] [id number] [address] [place] [address], [place] [address] Apr, [facility] [address] [id number] [address] [place] [address], [place] [address] Apr, [facility] [address] [id number] [address] [place] [address], [place] [address] Apr, [facility] [address] [id number] [address] [place] [address], [place] [address] Apr, [facility] [address] [id number] [address] [place] [address], [place] [address] Apr, [facility] [address] [id number] [address] [place] [address], [place] [address] Apr, [facility] [address] [id number] [address] [place] [address], [place] [address] Mar, [facility] [address] [id number] [address] [place] [address], [place] [address] Mar, [facility] [address] [id number] [address] [place] [address], [place] [address] Mar, [facility] [address] [id number] [address] [place] [address], [place] [address] Mar, [facility] [address] [id number] [address] [place] [address], [place] [address] Mar, [facility] [address] [id number] [address] [place] [address], [place] [address] Mar, [facility] [address] [id number] [address] [place] [address], [place] [address] Mar, [facility] [address] [id number] [address] [place] [address], [place] [address] Mar, [facility] [address] [id number] [address] [place] [address], [place] [address] Mar, [facility] [address] [id number] [address] [place] [address], [place] [address] Mar, [facility] [address] [id number] [address] [place] [address], [place] [address] Mar, [facility] [address] [id number] [address] [place] [address], [place] [address] Feb, [facility] [address] [id number] [address] [place] [address], [place] [address] Feb, [facility] [address] [id number] [address] [place] [address], [place] [address] Feb, [facility] [address] [id number] [address] [place] [address], [place] [address] Feb, [facility] [address] [id number] [address] [place] [address], [place] [address] Feb, [facility] [address] [id number] [address] [place] [address], [place] [address] Feb, [facility] [address] [id number] [address] [place] [address], [place] [address] Feb, [facility] [address] [id number] [address] [place] [address], [place] [address] Feb, [facility] [address] [id number] [address] [place] [address], [place] [address] Feb, [facility] [address] [id number] [address] [place] [address], [place] [address] Feb, [facility] [address] [id number] [address] [place] [address], [place] [address] Jan, [facility] [address] [id number] [address] [place] [address], [place] [address] 22 Jan, 2014 [facility] [address] [id number] [address] [place] [address], [place] [address] 16 Jan, 2014 [facility] [address] [id number] [address] [place] [address], [place] [address] 16 Jan, 2014 [facility] [address] [id number] [address] [place] [address], [place] [address] 12 Jan, 2014 [facility] [address] [id number] [address] [place] [address], [place] [address] Jan, [facility] [address] [id number] [address] [place] [address], [place] [address] Jan, [facility] [address] [id number] [address] [place] [address], [place] [address] Dec, [facility] [address] [id number] [address] [place] [address], [place] [address] Dec, [facility] [address] [id number] [address] [place] [address], [place] [address] Dec, [facility] [address] [id number] [address] [place] [address], [place] [address] Dec, [facility] [address] [id number] [address] [place] [address], [place] [address] Dec, [facility] [address] [id number] [address] [place] [address], [place] [address] Dec, [facility] [address] [id number] [address] [place] [address], [place] [address] Dec, [facility] [address] [id number] [address] [place] [address], [place] [address] Dec, [facility] [address] [id number] [address] [place] [address], [place] [address] Oct, [facility] [address] [id number] [address] [place] [address], [place] [address] Oct, [facility] [address] [id number] [address] [place] [address], [place] [address] September, [facility] [address] [id number] [address] [place] [address], [place] [address] September, [facility] [address] [id number] [address] [place] [address], [place] [address] September, [facility] [address] [id number] [address] [place] [address], [place] [address] September, [facility] [address] [id number] [address] [place] [address], [place] [address] September, [facility] [address] [id number] [address] [place] [address], [place] [address] September, [facility] [address] [id number] [address] [place] [address], [place] [address] September, [facility] [address] [id number] [address] [place] [address], [place] [address] Aug, [facility] [address] [id number] [address] [place] [address], [place] [address] 15 Aug, 2013 [facility] [address] [id number] [address] [place] [address], [place] [address] Jul, [facility] [address] [id number] [address] [place] [address], [place] [address] Jul, [facility] [address] [id number] [address] [place] [address], [place] [address] Jul, [facility] [address] [id number] [address] [place] [address], [place] [address] Jul, [facility] [address] [id number] [address] [place] [address], [place] [address] Jul, [facility] [address] [id number] [address] [place] [address], [place] [address] Jul, [facility] [address] [id number] [address] [place] [address], [place] [address] Jul, [facility] [address] [id number] [address] [place] [address], [place] [address] Jul, [facility] [address] [id number] [address] [place] [address], [place] [address] May, [facility] [address] [id number] [address] [place] [address], [place] [address] May, [facility] [address] [id number] [address] [place] [address], [place] [address] May, [facility] [address] [id number] [address] [place] [address], [place] [address] May, [facility] [address] [id number] [address] [place] [address], [place] [address] Apr, [facility] [address] [id number] [address] [place] [address], [place] [address] Mar, [facility] [address] [id number] [address] [place] [address] Mar, [facility] [address] [id number] [address] [place] [address], [place] [address] Mar, [facility] [address] [id number] [address] [place] [address] Mar, [facility] [address] [id number] [address] [place] [address], [place] [address] Mar, [facility] [address] [id number] [address] [place] [address] Mar, [facility] [address] [id number] [address] [place] [address], [place] [address] Mar, [facility] [address] [id number] [address] [place] [address] 18 Mar, 2013 [facility] [address] [id number] [address] [place] [address] Mar, [facility] [address] [id number] [address] [place] [address] Mar, [facility] [address] [id number] [address] [place] [address] 04 Mar, 2013 [facility] [address] [id number] [address] [place] [address] 04 Mar, 2013 [facility] [address] [id number] [address] [place] [address] 15 Feb, 2013 [facility] [address] [id number] [address] [place] [address] 15 Feb, 2013 [facility] [address] [id number] [address] [place] [address] 11 Feb, 2013 [facility] [address] [id number] [address] [place] [address] 11 Feb, 2013 [facility] [address] [id number] [address] [place] [address] 07 Feb, 2013 [facility] [address] [id number] [address] [place] [address], [place] [address] Jan, [facility] [address] [id number] [address] [place] [address], [place] [address] Dec, [facility] [address] [id number] [address] [place] [address], [place] [address] Dec, [facility] [address] [id number] [address] [place] [address], [place] [address] Dec, [facility] [address] [id number] [address] [place] [address], [place] [address] Nov, [facility] [address] [id number] [address] [place] [address], [place] [address] Nov, [facility] [address] [id number] [address] [place] [address], [place] [address] Nov, [facility] [address] [id number] [address] [place] [address], [place] [address] Oct, [facility] [address] [id number] [address] [place] [address], [place] [address] Oct, [facility] [address] [id number] [address] [place] [address], [place] [address] Oct, [facility] [address] [id number] [address] [place] [address], [place] [address] September, [facility] [address] [id number] [address] [place] [address], [place] [address] September, [facility] [address] [id number] [address] [place] [address], [place] [address] September, [facility] [address] [id number] [address] [place] [address], [place] [address] September, [facility] [address] [id number] [address] [place] [address], [place] [address] September, [facility] [address] [id number] [address] [place] [address], [place] [address] Aug, [facility] [address] [id number] [address] [place] [address], [place] [address] Aug, [facility] [address] [id number] [address] [place] [address], [place] [address] Aug, [facility] [address] [id number] [address] [place] [address], [place] [address] Jul, [facility] [address] [id number] [address] [place] [address], [place] [address] Jul, [facility] [address] [id number] [address] [place] [address], [place] [address] Jul, [facility] [address] [id number] [address] [place] [address], [place] [address] Jul, [facility] [address] [id number] [address] [place] [address], [place] [address] Jul, [facility] [address] [id number] [address] [place] [address], [place] [address] Jul, [facility] [address] [id number] [address] [place] [address], [place] [address] Jul, [facility] [address] [id number] [address] [place] [address], [place] [address] May, [facility] [address] [id number] [address] [place] [address], [place] [address] May, [facility] [address] [id number] [address] [place] [address], [place] [address] May, [facility] [address] [id number] [address] [place] [address], [place] [address] Apr, [facility] [address] [id number] [address] [place] [address], [place] [address] Apr, [facility] [address] [id number] [address] [place] [address], [place] [address] Apr, [facility] [address] [id number] [address] [place] [address], [place] [address] Apr, [facility] [address] [id number] [address] [place] [address], [place] [address] Apr, [facility] [address] [id number] [address] [place] [address], [place] [address] Mar, [facility] [address] [id number] [address] [place] [address], [place] [address] Mar, [facility] [address] [id number] [address] [place] [address], [place] [address] Mar, [facility] [address] [id number] [address] [place] [address], [place] [address] Mar, [facility] [address] [id number] [address] [place] [address], [place] [address] Feb, [facility] [address] [id number] [address] [place] [address], [place] [address] Feb, [facility] [address] [id number] [address] [place] [address], [place] [address] Feb, [facility] [address] [id number] [address] [place] [address], [place] [address] Feb, [facility] [address] [id number] [address] [place] [address], [place] [address] Feb, [facility] [address] [id number] [address] [place] [address], [place] [address] Jan, [facility] [address] [id number] [address] [place] [address], [place] [address] Dec, [facility] [address] [id number] [address] [place] [address], [place] [address] Dec, [facility] [address] [id number] [address] [place] [address], [place] [address] Dec, [facility] [address] [id number] [address] [place] [address], [place] [address] Nov, [facility] [address] [id number] [address] [place] [address], [place] [address] Nov, [facility] [address] [id number] [address] [place] [address], [place] [address] Nov, [facility] [address] [id number] [address] [place] [address], [place] [address] Oct, [facility] [address] [id number] [address] [place] [address], [place] [address] Oct, [facility] [address] [id number] [address] [place] [address], [place] [address] Oct, [facility] [address] [id number] [address] [place] [address], [place] [address] Oct, [facility] [address] [id number] [address] [place] [address], [place] [address] September, [facility] [address] [id number] [address] [place] [address], [place] [address] September, [facility] [address] [id number] [address] [place] [address], [place] [address] Aug, [facility] [address] [id number] [address] [place] [address], [place] [address] Aug, [facility] [address] [id number] [address] [place] [address], [place] [address] Aug, [facility] [address] [id number] [address] [place] [address], [place] [address] Aug, [facility] [address] [id number] [address] [place] [address], [place] [address] Aug, [facility] [address] [id number] [address] [place] [address], [place] [address] Aug, [facility] [address] [id number] [address] [place] [address], [place] [address] Aug, [facility] [address] [id number] [address] [place] [address], [place] [address] Jul, [facility] [address] [id number] [address] [place] [address], [place] [address] Jul, [facility] [address] [id number] [address] [place] [address], [place] [address] Jul, [facility] [address] [id number] [address] [place] [address], [place] [address] May, [facility] [address] [id number] [address] [place] [address], [place] [address] May, [facility] [address] [id number] [address] [place] [address], [place] [address] May, [facility] [address] [id number] [address] [place] [address], [place] [address] Apr, [facility] [address] [id number] [address] [place] [address], [place] [address] Apr, [facility] [address] [id number] [address] [place] [address], [place] [address] Mar, [facility] [address] [id number] [address] [place] [address], [place] [address] Mar, [facility] [address] [id number] [address] [place] [address], [place] [address] Mar, [facility] [address] [id number] [address] [place] [address] Mar, [facility] [address] [id number] [address] [place] [address] Mar, [facility] [address] [id number] [address] [place] [address], [place] [address] Mar, [facility] [address] [id number] [address] [place] [address], [place] [address] Feb, [facility] [address] [id number] [address] [place] [address], [place] [address] Feb, [facility] [address] [id number] [address] [place] [address] 14 Feb, 2011 IMMUNIZATIONS No Known Immunizations [...]
--- OUTSIDE RECORDS SUMMARY | 2020-01-03 07:50 | XMS REPORT ---
Author Author Tra SILVERIO Organization [facility] Address [address] [place] [address] Care Team Providers Care Screener And Blender Name Role Phone FERNY SILVERIO Unavailable PROBLEMS Type Condition ICD9-CM Code YRF32-KC Code Onset Dates Condition S tatus SNOMED Code Problem Insulin long-term use Z79.4 Active 420505213 Problem Hypertension I10 Active 6045423 3 Problem Diabetes E11.9 Active 47083741 Problem Hypoxia R09.02 Active 645336580 Problem Anxiety F41.9 Active 60035149 Problem Port catheter in place Z95.828 Active 587413515 Problem Pressure ulcer of other site, stage 3 L89.893 Active 302921183 Problem COPD (chronic obstructive pulmonary disease) J44.9 Active 23136109 Problem Type 2 diabetes mellitus wit h diabetic peripheral angiopathy without gangrene E11.51 Active 894758506 Problem Back pain M54.9 Active 322339891 Problem PAD (peripheral artery disease) I73.9 Active 141626419 Problem Lumbar radiculopathy, chronic M54.16 Active 640963464 Problem Recurrent major depressive disorder, in full remission F33.42 Active 524998691 Problem care home current use of insulin Z79.4 Active 940806237 ALLERGIES No Information ENCOUNTERS Encounter Location Date Diagnosis [facility] [address] [facility] [id number] [address] [place] [phone] Nov, Back pain M54.9 [facility] [address] [facility] [id number] [address] [place] [phone] Nov, Anxiety F41.9 [facility] [address] [facility] [id number] [address] [place] [phone] Nov, [facility] [address] [facility] [id number] [address] [place] [id number] Oct, Back pain M54.9 [facility] [address] [id number] [address] [place] [phone] 07 Oct, 2018 [facility] [address] [id number] [address] [place] [phone] Oct, [facility] [address] [id number] [address] [place] [phone] Oct, [facility] [address] [id number] [address] [place] [phone] September, Back pain M54.9 [facility] [address] [id number] [address] [place] [phone] September, [facility] [address] [id number] [address] [place] [phone] September, [facility] [address] [id number] [address] [place] [phone] September, [facility] [address] [id number] [address] [place] [phone] Aug, Back pain M54.9 [facility] [address] [id number] [address] [place] [phone] Aug, Anxiety F41.9 [facility] [address] [id number] [address] [place] [phone] Aug, [facility] [address] [id number] [address] [place] [id number] Aug, Pressure ulcer of other site , stage 3 L89.893 and COPD (chronic obstructive pulmonary disease) J44.9 [facility] [address] [id number] [address] [place] [phone] Aug, History of smoking Z87.891 [facility] [address] [id number] [address] [place] [id number] Jul, Type 2 diabetes mellitus wit h diabetic peripheral angiopathy without gangrene E11.51 [facility] [address] [id number] [address] [place] [id number] Jul, Back pain M54.9 [facility] [address] [id number] [address] [place] [id number] Jul, Anxiety F41.9 [facility] [address] [id number] [address] [place] [phone] Jul, [facility] [address] [id number] [address] [place] [phone] 13 Jul, 2018 Back pain M54.9 [facility] [address] [id number] [address] [place] [phone] Jul, Back pain M54.9 [facility] [address] [facility] [id number] [address] [place] [id number] Jul, Lumbar radiculopathy, chroni c M54.16 ; Hypertension I10 and Type 2 diabetes mellitus with diabetic peripheral angiopathy without gangrene E11.51 [facility] [address] [id number] [address] [place] [id number] Jul, Back pain M54.9 [facility] [address] [facility] [id number] [address] [place] [id number] Jul, Back pain M54.9 and Anxiety F41.9 [facility] [address] [facility] [id number] [address] [place] [id number] Jul, [facility] [address] [id number] [address] [place] [id number] May, Back pain M54.9 and Anxiety F41.9 [facility] [address] [id number] [address] [place] [phone] May, [facility] [address] [facility] [id number] [address] [place] [id number] Apr, Radiculopathy of lumbar rhiannon on M54.16 ; Back pain M54.9 and Anxiety F41.9 [facility] [address] [id number] [address] [place] [address] Apr, Diabetes E11.9 ; Muscle spas m M62.838 and Lumbar radiculopathy, chronic M54.16 [facility] [address] [id number] [address] [place] [phone] Apr, [facility] [address] [id number] [address] [place] [phone] Apr, [facility] [address] [id number] [address] [place] [id number] Mar, Back pain M54.9 and Anxiety F41.9 [facility] [address] [id number] [address] [place] [phone] Mar, [facility] [address] [facility] [id number] [address] [place] [phone] Mar, [facility] [address] [id number] [address] [place] [phone] Mar, [facility] [address] [facility] [id number] [address] [place] [phone] Mar, Encounter for immunization Z 23 [facility] [address] [facility] [id number] [address] [place] [address] Feb, Back pain M54.9 and Anxiety F41.9 [facility] [address] [id number] [address] [place] [id number] Feb, Back pain M54.9 and Anxiety F41.9 [facility] [address] [id number] [address] [place] [id number] Jan, Back pain M54.9 and Anxiety F41.9 [facility] [address] [facility] [id number] [address] [place] [phone] Jan, [facility] [address] [facility] [id number] [address] [place] [phone] Dec, [facility] [address] [id number] [address] [place] [phone] Dec, Back pain M54.9 and Anxiety F41.9 [facility] [address] [facility] [id number] [address] [place] [phone] Dec, Diabetes E11.9 ; Type 2 diab etes mellitus with diabetic peripheral angiopathy without gangrene E11.51 ; Lumbar radiculopathy, chronic M54.16 ; COPD (chronic obstructive pulmonary disease) J44.9 and Anxiety F41.9 [facility] [address] [facility] [id number] [address] [place] [phone] Dec, Back pain M54.9 and Anxiety F41.9 [place] [address] [facility] [id number] [address] [place] [phone] Nov, Back pain M54.9 and Anxiety F41.9 [place] [address] [place] [id number] [address] [place] [phone] Oct, [facility] [address] [facility] [id number] [address] [place] [phone] Oct, Back pain M54.9 and Anxiety F41.9 [place] [address] [facility] [id number] [address] [place] [id number] September, Anxiety F41.9 and Back pain M54.9 [place] [address] [facility] [id number] [address] [place] [id number] September, Diabetes E11.9 ; Hypertensio n I10 ; COPD (chronic obstructive pulmonary disease) J44.9 and Lumbar radiculopathy, chronic M54.16 [facility] [address] [facility] [id number] [address] [place] [phone] September, Anxiety F41.9 [place] [address] [facility] [id number] [address] [place] [phone] Aug, [place] [address] [facility] [id number] [address] [place] [id number] Aug, [facility] [address] [id number] [address] [place] [phone] Aug, Anxiety F41.9 and Back pain M54.9 [place] [address] [facility] [id number] [address] [place] [id number] Aug, Medicare annual wellness vis it, initial Z00.00 ; COPD (chronic obstructive pulmonary disease) J44.9 ; PAD (peripheral artery disease) I73.9 ; Insulin long-term use Z79.4 ; Hypertension I10 ; Anxiety F41.9 ; Recurrent major depressive disorder, in full remission F33.42 ; Pressure ulcer of other site, stage 3 L89.893 ; Type 2 diabetes mellitus with diabetic peripheral angiopathy without gangrene E11.51 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.4 [place] [address] [facility] [id number] [address] [place] [phone] Jul, Back pain M54.9 [place] [address] [facility] [id number] [address] [place] [id number] Jul, [place] [address] [id number] [address] [place] [phone] Jul, Anxiety F41.9 and Back pain M54.9 [place] [address] [facility] [id number] [address] [place] [id number] Jul, Diabetes E11.9 [place] [address] [facility] [id number] [address] [place] [phone] May, [place] [address] [facility] [id number] [address] [place] [id number] May, Diabetes E11.9 ; Anxiety F41 .9 ; Back pain M54.9 and COPD (chronic obstructive pulmonary disease) J44.9 [place] [address] [facility] [id number] [address] [place] [phone] May, Back pain M54.9 [place] [address] [facility] [id number] [address] [place] [phone] May, [facility] [address] [id number] [address] [place] [phone] Apr, Back pain M54.9 [facility] [address] [id number] [address] [place] [phone] 30 Mar, 2017 Back pain M54.9 [facility] [address] [id number] [address] [place] [id number] Mar, [facility] [address] [id number] [address] [place] [id number] 16 Mar, 2017 [facility] [address] [id number] [address] [place] [phone] 14 Mar, 2017 Radiculopathy of lumbar rhiannon on M54.16 [facility] [address] [id number] [address] [place] [id number] 13 Mar, 2017 [facility] [address] [id number] [address] [place] [id number] 07 Mar, 2017 Encounter for immunization Z 23 and Lumbar radiculopathy, chronic M54.16 [facility] [address] [id number] [address] [place] [phone] Mar, Back pain M54.9 and Anxiety F41.9 [facility] [address] [id number] [address] [place] [phone] 10 Feb, 2017 Acute bilateral low back boy n with left-sided sciatica M54.42 and Acute bilateral low back pain with right-sided sciatica M54.41 [facility] [address] [id number] [address] [place] [phone] Feb, [facility] [address] [id number] [address] [place] [id number] Feb, Back pain M54.9 [facility] [address] [id number] [address] [place] [id number] 05 Jan, 2017 Back pain M54.9 and Anxiety F41.9 [facility] [address] [id number] [address] [place] [phone] 05 Jan, 2017 Diabetes E11.9 [facility] [address] [id number] [address] [place] [id number] Dec, Diabetes E11.9 ; Back pain M 54.9 ; Anxiety F41.9 and Insulin long- term use Z79.4 [facility] [address] [id number] [address] [place] [phone] Dec, Anxiety F41.9 [facility] [address] [id number] [address] [place] [phone] Dec, Back pain M54.9 [facility] [address] [id number] [address] [place] [phone] Nov, Back pain M54.9 [facility] [address] [id number] [address] [place] [id number] Oct, Back pain M54.9 and Anxiety F41.9 [facility] [address] [id number] [address] [place] [phone] September, Back pain M54.9 [facility] [address] [id number] [address] [place] [phone] September, Back pain M54.9 and Anxiety F41.9 [facility] [address] [facility] [id number] [address] [place] [id number] Aug, Diabetes E11.9 ; Anxiety F41 .9 ; Back pain M54.9 and PAD (peripheral artery disease) I73.9 [facility] [address] [id number] [address] [place] [id number] Aug, Anxiety F41.9 [facility] [address] [id number] [address] [place] [id number] Aug, Back pain M54.9 [facility] [address] [facility] [id number] [address] [place] [id number] Jul, Back pain M54.9 [facility] [address] [id number] [address] [place] [id number] Jul, Back pain M54.9 [facility] [address] [id number] [address] [place] [id number] 23 Jul, 2016 Back pain M54.9 [facility] [address] [id number] [address] [place] [phone] 16 Jul, 2016 Dorsalgia M54.9 [facility] [address] [id number] [address] [place] [id number] 14 Jul, 2016 [facility] [address] [id number] [address] [place] [phone] May, Back pain M54.9 [facility] [address] [facility] [id number] [address] [place] [id number] May, Diabetes E11.9 ; Anxiety F41 .9 ; Port catheter in place Z95.828 ; Encounter for immunization Z23 and Insulin long-term use Z79.4 [facility] [address] [id number] [address] [place] [id number] Apr, Back pain M54.9 [facility] [address] [id number] [address] [place] [address] Apr, Back pain M54.9 [facility] [address] [id number] [address] [place] [phone] Apr, [facility] [address] [id number] [address] [place] [address] Apr, Back pain M54.9 [facility] [address] [id number] [address] [place] [id number] Mar, COPD (chronic obstructive pu lmonary disease) J44.9 [facility] [address] [id number] [address] [place] [id number] Feb, [facility] [address] [id number] [address] [place] [id number] 30 Jan, 2016 [facility] [address] [id number] [address] [place] [id number] 20 Jan, 2016 [facility] [address] [id number] [address] [place] [id number] 07 Jan, 2016 [facility] [address] [id number] [address] [place] [phone] 02 Jan, 2016 [facility] [address] [id number] [address] [place] [phone] Dec, Diabetes E11.9 ; Hypoxia R09 .02 and Back pain M54.9 [facility] [address] [id number] [address] [place] [id number] Dec, [facility] [address] [id number] [address] [place] [phone] Nov, [facility] [address] [id number] [address] [place] [id number] Oct, Anxiety F41.9 [facility] [address] [id number] [address] [place] [id number] Oct, Back pain M54.9 [facility] [address] [id number] [address] [place] [id number] September, Back pain M54.9 [facility] [address] [id number] [address] [place] [id number] September, Diabetes E11.9 [facility] [address] [id number] [address] [place] [id number] September, [facility] [address] [id number] [address] [place] [phone] September, Diabetes E11.9 ; Insulin sarai g-term use Z79.4 and Back pain M54.9 [facility] [address] [id number] [address] [place] [phone] Aug, Back pain M54.9 [facility] [address] [id number] Aug, Back pain M54.9 ; Anxiety F4 1.9 and Arthropathy, unspecified M12.9 [facility] [address] [id number] Jul, Back pain M54.9 [facility] [address] [address] Jul, Anxiety F41.9 [facility] [address] [address] Jul, Back pain M54.9 [facility] [address] [id number] Jul, [facility] [address] [id number] Jul, [facility] [address] [id number] May, Back pain M54.9 ; Diabetes E 11.9 ; Insulin long-term use Z79.4 ; COPD (chronic obstructive pulmonary disease) J44.9 and Hypertension I10 [place] [address] [address] May, Chronic pain G89.29 [place] [address] [address] Apr, [place] [address] [address] Apr, [facility] [address] [id number] Mar, [place] [address] [id number] Mar, Encounter for immunization Z 23 and Diabetes E11.9 [facility] [address] [id number] Feb, [facility] [address] [id number] [address] [place] [phone] Feb, [facility] [address] [id number] [address] [place] [address], [place] [id number] Jan, [facility] [address] [id number] [address] [place] [address], [place] [phone] Jan, [facility] [address] [id number] [address] [place] [address], [place] [address] Dec, [facility] [address] [id number] [address] [place] [id number] Dec, [facility] [address] [id number] [address] [place] [address], [place] [address] Dec, Unspecified arthropathy, sit e unspecified 716.90 and Diabetes mellitus type 2, uncontrolled 250.02 [facility] [address] [id number] [address] [place] [address], [place] [address] Dec, [facility] [address] [id number] [address] [place] [phone] Nov, [facility] [address] [id number] [address] [place] [id number] Oct, [facility] [address] [id number] [address] [place] [phone] September, [facility] [address] [id number] [address] [place] [phone] September, [facility] [address] [id number] [address] [place] [phone] September, [facility] [address] [id number] [address] [place] [phone] September, [facility] [address] [id number] [address] [place] [id number] Aug, [facility] [address] [id number] [address] [place] [id number] Aug, [facility] [address] [id number] [address] [place] [address], [place] [id number] 18 Jul, 2014 [facility] [address] [id number] [address] [place] [address], [place] [id number] 18 Jul, 2014 [facility] [address] [id number] [address] [place] [address], [place] [id number] 16 Jul, 2014 [facility] [address] [id number] [address] [place] [address], [place] [id number] 16 Jul, 2014 [facility] [address] [id number] [address] [place] [address], [place] [id number] 16 Jul, 2014 [facility] [address] [id number] [address] [place] [address], [place] [id number] 16 Jul, 2014 [facility] [address] [id number] [address] [place] [address], [place] [id number] 16 Jul, 2014 [facility] [address] [id number] [address] [place] [address], [place] [id number] 16 Jul, 2014 [facility] [address] [id number] [address] [place] [address], [place] [id number] 16 Jul, 2014 [facility] [address] [id number] [address] [place] [address], [place] [id number] 13 Jul, 2014 [facility] [address] [id number] [address] [place] [address], [place] [id number] 13 Jul, 2014 [facility] [address] [id number] [address] [place] [address], [place] [id number] 09 Jul, 2014 [facility] [address] [id number] [address] [place] [address], [place] [id number] 09 Jul, 2014 [facility] [address] [id number] [address] [place] [address], [place] [id number] 17 Jul, 2014 [facility] [address] [id number] [address] [place] [address], [place] [id number] 17 Jul, 2014 [facility] [address] [id number] [address] [place] [id number] 16 Jul, 2014 [facility] [address] [id number] [address] [place] [address], [place] [id number] 16 Jul, 2014 [facility] [address] [id number] [address] [place] [address], [place] [id number] 16 Jul, 2014 [facility] [address] [id number] [address] [place] [address], [place] [id number] 16 Jul, 2014 [facility] [address] [id number] [address] [place] [address], [place] [id number] 16 Jul, 2014 [facility] [address] [id number] [address] [place] [address], [place] [id number] 16 Jul, 2014 [facility] [address] [id number] [address] [place] [address], [place] [id number] 16 Jul, 2014 [facility] [address] [id number] [address] [place] [place] [address], [place] [address] 16 Jul, 2014 [facility] [address] [id number] [address] [place] [address], [place] [address] 16 Jul, 2014 [facility] [address] [id number] [address] [place] [address], [place] [address] 16 Jul, 2014 [facility] [address] [id number] [address] [place] [address] 16 Jul, 2014 [facility] [address] [id number] [address] [place] [id number] Jul, 2014 [facility] [address] [id number] [address] [place] [address], [place] [address] 16 Jul, 2014 [facility] [address] [id number] [address] [place] [address], [place] [address] 16 Jul, 2014 [facility] [address] [id number] [address] [place] [id number] May, [facility] [address] [id number] [address] [place] [id number] May, [facility] [address] [id number] [address] [place] [address], [place] [address] May, [facility] [address] [id number] [address] [place] [address], [place] [address] May, [facility] [address] [id number] [address] [place] [address], [place] [address] May, [facility] [address] [id number] [address] [place] [address], [place] [address] May, [facility] [address] [id number] [address] [place] [address], [place] [address] May, [facility] [address] [id number] [address] [place] [address], [place] [address] May, [facility] [address] [id number] [address] [place] [address], [place] [address] May, [facility] [address] [id number] [address] [place] [address], [place] [address] May, [facility] [address] [id number] [address] [place] [address], [place] [address] Apr, [facility] [address] [id number] [address] [place] [address], [place] [address] Apr, [facility] [address] [id number] [address] [place] [address], [place] [address] Apr, [facility] [address] [id number] [address] [place] [address], [place] [address] Apr, [facility] [address] [id number] [address] [place] [address], [place] [address] Apr, [facility] [address] [id number] [address] [place] [address], [place] [address] Apr, [facility] [address] [id number] [address] [place] [address], [place] [address] Mar, [facility] [address] [id number] [address] [place] [address], [place] [address] Mar, [facility] [address] [id number] [address] [place] [address], [place] [address] Mar, [facility] [address] [id number] [address] [place] [address], [place] [address] Mar, [facility] [address] [id number] [address] [place] [address], [place] [address] Mar, [facility] [address] [id number] [address] [place] [address], [place] [address] Mar, [facility] [address] [id number] [address] [place] [address], [place] [address] Mar, [facility] [address] [id number] [address] [place] [address], [place] [address] Mar, [facility] [address] [id number] [address] [place] [address], [place] [address] Mar, [facility] [address] [id number] [address] [place] [address], [place] [address] Mar, [facility] [address] [id number] [address] [place] [address], [place] [address] Mar, [facility] [address] [id number] [address] [place] [address], [place] [address] Feb, [facility] [address] [id number] [address] [place] [address], [place] [address] 30 Feb, 2014 [facility] [address] [id number] [address] [place] [address], [place] [address] Feb, [facility] [address] [id number] [address] [place] [address], [place] [address] Feb, [facility] [address] [id number] [address] [place] [address], [place] [address] Feb, [facility] [address] [id number] [address] [place] [address], [place] [address] Feb, [facility] [address] [id number] [address] [place] [address], [place] [address] Feb, [facility] [address] [id number] [address] [place] [address], [place] [address] Feb, [facility] [address] [id number] [address] [place] [address], [place] [address] Feb, [facility] [address] [id number] [address] [place] [address], [place] [address] Feb, [facility] [address] [id number] [address] [place] [address], [place] [address] Jan, [facility] [address] [id number] [address] [place] [address], [place] [address] 22 Jan, 2014 [facility] [address] [id number] [address] [place] [address], [place] [address] 16 Jan, 2014 [facility] [address] [id number] [address] [place] [address], [place] [address] 16 Jan, 2014 [facility] [address] [id number] [address] [place] [address], [place] [address] Jan, [facility] [address] [id number] [address] [place] [address], [place] [address] Jan, [facility] [address] [id number] [address] [place] [address], [place] [address] Jan, [facility] [address] [id number] [address] [place] [address], [place] [address] Dec, [facility] [address] [id number] [address] [place] [address], [place] [address] Dec, [facility] [address] [id number] [address] [place] [address], [place] [address] Dec, [facility] [address] [id number] [address] [place] [address], [place] [address] Dec, [facility] [address] [id number] [address] [place] [address], [place] [address] Dec, [facility] [address] [id number] [address] [place] [address], [place] [address] Dec, [facility] [address] [id number] [address] [place] [address], [place] [address] Dec, [facility] [address] [id number] [address] [place] [address], [place] [address] Dec, [facility] [address] [id number] [address] [place] [address], [place] [address] Oct, [facility] [address] [id number] [address] [place] [address], [place] [address] Oct, [facility] [address] [id number] [address] [place] [address], [place] [address] September, [facility] [address] [id number] [address] [place] [address], [place] [address] September, [facility] [address] [id number] [address] [place] [address], [place] [address] September, [facility] [address] [id number] [address] [place] [address], [place] [address] September, [facility] [address] [id number] [address] [place] [address], [place] [address] September, [facility] [address] [id number] [address] [place] [address], [place] [address] September, [facility] [address] [id number] [address] [place] [address], [place] [address] September, [facility] [address] [id number] [address] [place] [address], [place] [address] Aug, [facility] [address] [id number] [address] [place] [address], [place] [address] Aug, [facility] [address] [id number] [address] [place] [address], [place] [address] Jul, [facility] [address] [id number] [address] [place] [address], [place] [address] 24 Jul, 2013 [facility] [address] [id number] [address] [place] [address], [place] [address] Jul, [facility] [address] [id number] [address] [place] [address], [place] [address] 17 Jul, 2013 [facility] [address] [id number] [address] [place] [address], [place] [address] 14 Jul, 2013 [facility] [address] [id number] [address] [place] [address], [place] [address] 14 Jul, 2013 [facility] [address] [id number] [address] [place] [address], [place] [address] Jul, [facility] [address] [id number] [address] [place] [address], [place] [address] Jul, [facility] [address] [id number] [address] [place] [address], [place] [address] 15 May, 2013 [facility] [address] [id number] [address] [place] [address], [place] [address] May, [facility] [address] [id number] [address] [place] [address], [place] [address] May, [facility] [address] [id number] [address] [place] [address], [place] [address] May, [facility] [address] [id number] [address] [place] [address], [place] [address] Apr, [facility] [address] [id number] [address] [place] [address], [place] [address] Mar, [facility] [address] [id number] [address] [place] [address], [place] [address] Mar, [facility] [address] [id number] [address] [place] [address], [place] [address] Mar, [facility] [address] [id number] [address] [place] [address] Mar, [facility] [address] [id number] [address] [place] [address], [place] [address] Mar, [facility] [address] [id number] [address] [place] [address] Mar, [facility] [address] [id number] [address] [place] [id number] Mar, [facility] [address] [id number] [address] [place] [address] Mar, [facility] [address] [id number] [address] [place] [address], [place] [address] Mar, [facility] [address] [id number] [address] [place] [address] Mar, [facility] [address] [id number] [address] [place] [id number] Mar, [facility] [address] [id number] [address] [place] [address] Mar, [facility] [address] [id number] [address] [place] [address] Feb, [facility] [address] [id number] [address] [place] [address] Feb, [facility] [address] [id number] [address] [place] [address] Feb, [facility] [address] [id number] [address] [place] [address] Feb, [facility] [address] [id number] [address] [place] [address] Feb, [facility] [address] [id number] [address] [place] [id number] Jan, [facility] [address] [id number] [address] [place] [id number] Dec, [facility] [address] [id number] [address] [place] [address], [place] [address] Dec, [facility] [address] [id number] [address] [place] [address], [place] [address] Dec, [facility] [address] [id number] [address] [place] [address], [place] [address] Nov, [facility] [address] [id number] [address] [place] [address], [place] [address] Nov, [facility] [address] [id number] [address] [place] [address], [place] [address] Nov, [facility] [address] [id number] [address] [place] [address], [place] [address] Oct, [facility] [address] [id number] [address] [place] [address], [place] [address] Oct, [facility] [address] [id number] [address] [place] [address], [place] [address] Oct, [facility] [address] [id number] [address] [place] [address], [place] [address] September, [facility] [address] [id number] [address] [place] [address], [place] [address] September, [facility] [address] [id number] [address] [place] [address], [place] [address] September, [facility] [address] [id number] [address] [place] [address], [place] [address] September, [facility] [address] [id number] [address] [place] [address], [place] [address] September, [facility] [address] [id number] [address] [place] [address], [place] [address] Aug, [facility] [address] [id number] [address] [place] [address], [place] [address] Aug, [facility] [address] [id number] [address] [place] [address], [place] [address] Aug, [facility] [address] [id number] [address] [place] [address], [place] [address] Jul, [facility] [address] [id number] [address] [place] [address], [place] [address] Jul, [facility] [address] [id number] [address] [place] [address], [place] [address] Jul, [facility] [address] [id number] [address] [place] [address], [place] [address] Jul, [facility] [address] [id number] [address] [place] [address], [place] [address] Jul, [facility] [address] [id number] [address] [place] [address], [place] [address] Jul, [facility] [address] [id number] [address] [place] [address], [place] [address] Jul, [facility] [address] [id number] [address] [place] [address], [place] [address] May, [facility] [address] [id number] [address] [place] [address], [place] [address] May, [facility] [address] [id number] [address] [place] [address], [place] [address] May, [facility] [address] [id number] [address] [place] [address], [place] [address] Apr, [facility] [address] [id number] [address] [place] [address], [place] [address] Apr, [facility] [address] [id number] [address] [place] [address], [place] [address] Apr, [facility] [address] [id number] [address] [place] [address], [place] [address] Apr, [facility] [address] [id number] [address] [place] [address], [place] [address] Apr, [facility] [address] [id number] [address] [place] [address], [place] [address] Mar, [facility] [address] [id number] [address] [place] [address], [place] [address] Mar, [facility] [address] [id number] [address] [place] [address], [place] [address] Mar, [facility] [address] [id number] [address] [place] [address], [place] [address] Mar, [facility] [address] [id number] [address] [place] [address], [place] [address] Feb, [facility] [address] [id number] [address] [place] [address], [place] [address] Feb, [facility] [address] [id number] [address] [place] [address], [place] [address] Feb, [facility] [address] [id number] [address] [place] [address], [place] [address] Feb, [facility] [address] [id number] [address] [place] [address], [place] [address] Feb, [facility] [address] [id number] [address] [place] [address], [place] [address] Jan, [facility] [address] [id number] [address] [place] [address], [place] [address] Dec, [facility] [address] [id number] [address] [place] [address], [place] [address] Dec, [facility] [address] [id number] [address] [place] [address], [place] [address] Dec, [facility] [address] [id number] [address] [place] [address], [place] [address] Nov, [facility] [address] [id number] [address] [place] [address], [place] [address] Nov, [facility] [address] [id number] [address] [place] [address], [place] [address] Nov, [facility] [address] [id number] [address] [place] [address], [place] [address] Oct, [facility] [address] [id number] [address] [place] [address], [place] [address] Oct, [facility] [address] [id number] [address] [place] [address], [place] [address] Oct, [facility] [address] [id number] [address] [place] [address], [place] [address] Oct, [facility] [address] [id number] [address] [place] [address], [place] [address] September, [facility] [address] [id number] [address] [place] [address], [place] [address] September, [facility] [address] [id number] [address] [place] [address], [place] [address] Aug, [facility] [address] [id number] [address] [place] [address], [place] [address] Aug, [facility] [address] [id number] [address] [place] [address], [place] [address] Aug, [facility] [address] [id number] [address] [place] [address], [place] [address] Aug, [facility] [address] [id number] [address] [place] [address], [place] [address] Aug, [facility] [address] [id number] [address] [place] [address], [place] [address] Aug, [facility] [address] [id number] [address] [place] [address], [place] [address] Aug, [facility] [address] [id number] [address] [place] [address], [place] [address] Jul, [facility] [address] [id number] [address] [place] [address], [place] [id number] Jul, [facility] [address] [id number] [address] [place] [id number] Jul, [facility] [address] [id number] [address] [place] [phone] May, [facility] [address] [id number] [address] [place] [phone] May, [facility] [address] [id number] [address] [place] [phone] May, [facility] [address] [id number] [address] [place] [id number] Apr, [facility] [address] [id number] [address] [place] [id number] Apr, [facility] [address] [id number] [address] [place] [id number] Mar, [facility] [address] [id number] [address] [place] [id number] Mar, [facility] [address] [id number] [address] [place] [id number] Mar, [facility] [address] [id number] [address] [place] [id number] Mar, [facility] [address] [id number] [address] [place] [id number] Mar, [facility] [address] [id number] [address] [place] [phone] Mar, [facility] [address] [id number] [address] [place] [id number] Feb, [facility] [address] [id number] [address] [place] [id number] Feb, [facility] [address] [id number] [address] [place] [id number] Feb, IMMUNIZATIONS No Known Immunizations SOCIAL HISTORY [...]
--- OUTSIDE RECORDS SUMMARY | 2020-01-03 07:50 | XMS REPORT ---
Author Author Tra SILVERIO Organization [facility] Address [address] [place] [address] Care Team Providers Care Field Mechanic/Site Lead Name Role Phone FERNY SILVERIO Unavailable PROBLEMS Type Condition ICD9-CM Code YSD01-TP Code Onset Dates Condition S tatus SNOMED Code Problem Insulin long-term use Z79.4 Active 165490635 Problem Hypertension I10 Active 4372575 3 Problem Diabetes E11.9 Active 92409063 Problem Hypoxia R09.02 Active 802701114 Problem Anxiety F41.9 Active 81090251 Problem Port catheter in place Z95.828 Active 226628554 Problem Pressure ulcer of other site, stage 3 L89.893 Active 008651705 Problem COPD (chronic obstructive pulmonary disease) J44.9 Active 05654040 Problem Type 2 diabetes mellitus wit h diabetic peripheral angiopathy without gangrene E11.51 Active 577991955 Problem Back pain M54.9 Active 200252974 Problem PAD (peripheral artery disease) I73.9 Active 373146853 Problem Lumbar radiculopathy, chronic M54.16 Active 364710474 Problem Recurrent major depressive disorder, in full remission F33.42 Active 404503757 Problem correction current use of insulin Z79.4 Active 196802284 ALLERGIES No Information ENCOUNTERS Encounter Location Date Diagnosis [facility] [address] [facility] [id number] [address] [place] [id number] Nov, Back pain M54.9 [facility] [address] [facility] [id number] [address] [place] [id number] Nov, Anxiety F41.9 [facility] [address] [facility] [id number] [address] [place] [id number] Nov, [facility] [address] [facility] [id number] [address] [place] [id number] Oct, Back pain M54.9 [facility] [address] [id number] [address] [place] [id number] 07 Oct, 2018 [facility] [address] [id number] [address] [place] [id number] Oct, [facility] [address] [id number] [address] [place] [id number] Oct, [facility] [address] [id number] [address] [place] [id number] September, Back pain M54.9 [facility] [address] [id number] [address] [place] [id number] September, [facility] [address] [id number] [address] [place] [id number] September, [facility] [address] [id number] [address] [place] [address] September, [facility] [address] [id number] [address] [place] [id number] Aug, Back pain M54.9 [facility] [address] [id number] [address] [place] [id number] Aug, Anxiety F41.9 [facility] [address] [id number] [address] [place] [id number] Aug, [facility] [address] [id number] [address] [place] [address] Aug, Pressure ulcer of other site , stage 3 L89.893 and COPD (chronic obstructive pulmonary disease) J44.9 [facility] [address] [id number] [address] [place] [id number] Aug, History of smoking Z87.891 [facility] [address] [id number] [address] [place] [id number] Jul, Type 2 diabetes mellitus wit h diabetic peripheral angiopathy without gangrene E11.51 [facility] [address] [id number] [address] [place] [id number] Jul, Back pain M54.9 [facility] [address] [id number] [address] [place] [id number] Jul, Anxiety F41.9 [facility] [address] [id number] [address] [place] [id number] Jul, [facility] [address] [id number] [address] [place] [id number] 13 Jul, 2018 Back pain M54.9 [facility] [address] [id number] [address] [place] [id number] Jul, Back pain M54.9 [facility] [address] [facility] [id number] [address] [place] [id number] Jul, Lumbar radiculopathy, chroni c M54.16 ; Hypertension I10 and Type 2 diabetes mellitus with diabetic peripheral angiopathy without gangrene E11.51 [facility] [address] [id number] [address] [place] [id number] Jul, Back pain M54.9 [facility] [address] [facility] [id number] [address] [place] [id number] Jul, Back pain M54.9 and Anxiety F41.9 [facility] [address] [facility] [id number] [address] [place] [id number] Jul, [facility] [address] [id number] [address] [place] [id number] May, Back pain M54.9 and Anxiety F41.9 [facility] [address] [id number] [address] [place] [id number] May, [facility] [address] [facility] [id number] [address] [place] [address] Apr, Radiculopathy of lumbar rhiannon on M54.16 ; Back pain M54.9 and Anxiety F41.9 [facility] [address] [id number] [address] [place] [id number] Apr, Diabetes E11.9 ; Muscle spas m M62.838 and Lumbar radiculopathy, chronic M54.16 [facility] [address] [id number] [address] [place] [id number] Apr, [facility] [address] [id number] [address] [place] [id number] Apr, [facility] [address] [id number] [address] [place] [id number] Mar, Back pain M54.9 and Anxiety F41.9 [facility] [address] [id number] [address] [place] [id number] Mar, [facility] [address] [facility] [id number] [address] [place] [id number] Mar, [facility] [address] [id number] [address] [place] [id number] Mar, [facility] [address] [facility] [id number] [address] [place] [id number] Mar, Encounter for immunization Z 23 [facility] [address] [facility] [id number] [address] [place] [id number] Feb, Back pain M54.9 and Anxiety F41.9 [facility] [address] [id number] [address] [place] [id number] Feb, Back pain M54.9 and Anxiety F41.9 [facility] [address] [id number] [address] [place] [id number] Jan, Back pain M54.9 and Anxiety F41.9 [facility] [address] [facility] [id number] [address] [place] [id number] Jan, [facility] [address] [facility] [id number] [address] [place] [id number] Dec, [facility] [address] [id number] [address] [place] [id number] Dec, Back pain M54.9 and Anxiety F41.9 [facility] [address] [facility] [id number] [address] [place] [id number] Dec, Diabetes E11.9 ; Type 2 diab etes mellitus with diabetic peripheral angiopathy without gangrene E11.51 ; Lumbar radiculopathy, chronic M54.16 ; COPD (chronic obstructive pulmonary disease) J44.9 and Anxiety F41.9 [facility] [address] [facility] [id number] [address] [place] [id number] Dec, Back pain M54.9 and Anxiety F41.9 [facility] [address] [facility] [id number] [address] [place] [id number] Nov, Back pain M54.9 and Anxiety F41.9 [place] [place] [address] [place] [id number] [address] [place] [id number] Oct, [facility] [address] [facility] [id number] [address] [place] [id number] Oct, Back pain M54.9 and Anxiety F41.9 [facility] [place] [address] [facility] [id number] [address] [place] [id number] September, Anxiety F41.9 and Back pain M54.9 [place] [address] [facility] [id number] [address] [place] [address] September, Diabetes E11.9 ; Hypertensio n I10 ; COPD (chronic obstructive pulmonary disease) J44.9 and Lumbar radiculopathy, chronic M54.16 [facility] [address] [facility] [id number] [address] [place] [id number] September, Anxiety F41.9 [place] [address] [facility] [id number] [address] [place] [id number] Aug, [place] [address] [facility] [id number] [address] [place] [id number] Aug, [facility] [address] [id number] [address] [place] [id number] Aug, Anxiety F41.9 and Back pain M54.9 [place] [address] 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 [id number] [address] [place] [id number] Jul, Back pain M54.9 [place] [address] [facility] [id number] [address] [place] [id number] Jul, [place] [address] [id number] [address] [place] [id number] Jul, Anxiety F41.9 and Back pain M54.9 [place] [address] [facility] [id number] [address] [place] [id number] Jul, Diabetes E11.9 [place] [address] [facility] [id number] [address] [place] [id number] May, [place] [address] [facility] [id number] [address] [place] [id number] May, Diabetes E11.9 ; Anxiety F41 .9 ; Back pain M54.9 and COPD (chronic obstructive pulmonary disease) J44.9 [place] [address] [facility] [id number] [address] [place] [id number] May, Back pain M54.9 [place] [address] [facility] [id number] [address] [place] [id number] May, [facility] [address] [id number] [address] [place] [id number] Apr, Back pain M54.9 [facility] [address] [id number] [address] [place] [id number] 30 Mar, 2017 Back pain M54.9 [facility] [address] [id number] [address] [place] [id number] Mar, [facility] [address] [id number] [address] [place] [id number] 16 Mar, 2017 [facility] [address] [id number] [address] [place] [id number] 14 Mar, 2017 Radiculopathy of lumbar rhiannon on M54.16 [facility] [address] [id number] [address] [place] [id number] 13 Mar, 2017 [facility] [address] [id number] [address] [place] [id number] 07 Mar, 2017 Encounter for immunization Z 23 and Lumbar radiculopathy, chronic M54.16 [facility] [address] [id number] [address] [place] [id number] Mar, Back pain M54.9 and Anxiety F41.[address] [facility] [address] [id number] [address] [place] [id number] 10 Feb, 2017 Acute bilateral low back boy n with left-sided sciatica M54.42 and Acute bilateral low back pain with right-sided sciatica M54.41 [facility] [address] [id number] [address] [place] [id number] Feb, [facility] [address] [id number] [address] [place] [id number] Feb, Back pain M54.9 [facility] [address] [id number] [address] [place] [id number] 05 Jan, 2017 Back pain M54.9 and Anxiety F41.9 [facility] [address] [id number] [address] [place] [id number] 05 Jan, 2017 Diabetes E11.9 [facility] [address] [id number] [address] [place] [address] Dec, Diabetes E11.9 ; Back pain M 54.9 ; Anxiety F41.9 and Insulin long- term use Z79.4 [facility] [address] [id number] [address] [place] [id number] Dec, Anxiety F41.9 [facility] [address] [id number] [address] [place] [id number] Dec, Back pain M54.9 [facility] [address] [id number] [address] [place] [id number] Nov, Back pain M54.9 [facility] [address] [id number] [address] [place] [id number] Oct, Back pain M54.9 and Anxiety F41.9 [facility] [address] [id number] [address] [place] [id number] September, Back pain M54.9 [facility] [address] [id number] [address] [place] [id number] September, Back pain M54.9 and Anxiety F41.9 [facility] [address] [facility] [id number] [address] [place] [id number] Aug, Diabetes E11.9 ; Anxiety F41 .9 ; Back pain M54.9 and PAD (peripheral artery disease) I73.9 [facility] [address] [id number] [address] [place] [id number] Aug, Anxiety F41.9 [facility] [address] [id number] [address] [place] [id number] Aug, Back pain M54.9 [facility] [address] [facility] [id number] [address] [place] [id number] Jul, Back pain M54.9 [facility] [address] [id number] [address] [place] [id number] Jul, Back pain M54.9 [facility] [address] [id number] [address] [place] [id number] 23 Jul, 2016 Back pain M54.9 [facility] [address] [id number] [address] [place] [id number] 16 Jul, 2016 Dorsalgia M54.9 [facility] [address] [id number] [address] [place] [id number] 14 Jul, 2016 [facility] [address] [id number] [address] [place] [id number] May, Back pain M54.9 [facility] [address] [facility] [id number] [address] [place] [address] May, Diabetes E11.9 ; Anxiety F41 .9 ; Port catheter in place Z95.828 ; Encounter for immunization Z23 and Insulin long-term use Z79.4 [facility] [address] [id number] [address] [place] [id number] Apr, Back pain M54.9 [facility] [address] [id number] [address] [place] [id number] Apr, Back pain M54.9 [facility] [address] [id number] [address] [place] [id number] Apr, [facility] [address] [id number] [address] [place] [id number] Apr, Back pain M54.9 [facility] [address] [id number] [address] [place] [id number] Mar, COPD (chronic obstructive pu lmonary disease) J44.9 [facility] [address] [id number] [address] [place] [id number] Feb, [facility] [address] [id number] [address] [place] [id number] 30 Jan, 2016 [facility] [address] [id number] [address] [place] [id number] 20 Jan, 2016 [facility] [address] [id number] [address] [place] [id number] 07 Jan, 2016 [facility] [address] [id number] [address] [place] [id number] 02 Jan, 2016 [facility] [address] [id number] [address] [place] [id number] Dec, Diabetes E11.9 ; Hypoxia R09 .02 and Back pain M54.9 [facility] [address] [id number] [address] [place] [id number] Dec, [facility] [address] [id number] [address] [place] [id number] Nov, [facility] [address] [id number] [address] [place] [address] Oct, Anxiety F41.9 [facility] [address] [id number] [address] [place] [id number] Oct, Back pain M54.9 [facility] [address] [id number] [address] [place] [id number] September, Back pain M54.9 [facility] [address] [id number] [address] [place] [id number] September, Diabetes E11.9 [facility] [address] [id number] [address] [place] [id number] September, [facility] [address] [id number] [address] [place] [id number] September, Diabetes E11.9 ; Insulin sarai g-term use Z79.4 and Back pain M54.9 [facility] [address] [id number] [address] [place] [id number] Aug, Back pain M54.9 [facility] [address] [id number] Aug, Back pain M54.9 ; Anxiety F4 1.9 and Arthropathy, unspecified M12.9 [facility] [address] [id number] Jul, Back pain M54.9 [facility] [address] [id number] Jul, Anxiety F41.9 [facility] [address] [id number] Jul, Back pain M54.9 [facility] [address] [id number] Jul, [facility] [address] [id number] Jul, [facility] [address] [id number] May, Back pain M54.9 ; Diabetes E 11.9 ; Insulin long-term use Z79.4 ; COPD (chronic obstructive pulmonary disease) J44.9 and Hypertension I10 [place] [address] [id number] May, Chronic pain G89.29 [place] [address] [address] Apr, [place] [address] [id number] Apr, [facility] [address] [id number] Mar, [place] [address] [id number] Mar, Encounter for immunization Z 23 and Diabetes E11.9 [facility] [address] [id number] Feb, [facility] [address] [id number] [address] [place] [id number] Feb, [facility] [address] [id number] [address] [place] [address], [place] [address] Jan, [facility] [address] [id number] [address] [place] [address], [place] [address] Jan, [facility] [address] [id number] [address] [place] [address], [place] [address] Dec, [facility] [address] [id number] [address] [place] [address] Dec, [facility] [address] [id number] [address] [place] [address], [place] [address] Dec, Unspecified arthropathy, sit e unspecified 716.90 and Diabetes mellitus type 2, uncontrolled 250.02 [facility] [address] [id number] [address] [place] [address], [place] [address] Dec, [facility] [address] [id number] [address] [place] [id number] Nov, [facility] [address] [id number] [address] [place] [id number] Oct, [facility] [address] [id number] [address] [place] [id number] September, [facility] [address] [id number] [address] [place] [id number] September, [facility] [address] [id number] [address] [place] [id number] September, [facility] [address] [id number] [address] [place] [id number] September, [facility] [address] [id number] [address] [place] [id number] Aug, [facility] [address] [id number] [address] [place] [id number] Aug, [facility] [address] [id number] [address] [place] [address], [place] [address] 18 Jul, 2014 [facility] [address] [id number] [address] [place] [address], [place] [address] 18 Jul, 2014 [facility] [address] [id number] [address] [place] [address], [place] [address] 16 Jul, 2014 [facility] [address] [id number] [address] [place] [address], [place] [address] 16 Jul, 2014 [facility] [address] [id number] [address] [place] [address], [place] [address] 16 Jul, 2014 [facility] [address] [id number] [address] [place] [address], [place] [address] 16 Jul, 2014 [facility] [address] [id number] [address] [place] [address], [place] [address] 16 Jul, 2014 [facility] [address] [id number] [address] [place] [address], [place] [address] 16 Jul, 2014 [facility] [address] [id number] [address] [place] [address], [place] [address] 16 Jul, 2014 [facility] [address] [id number] [address] [place] [address], [place] [address] 13 Jul, 2014 [facility] [address] [id number] [address] [place] [address], [place] [address] 13 Jul, 2014 [facility] [address] [id number] [address] [place] [address], [place] [address] 09 Jul, 2014 [facility] [address] [id number] [address] [place] [address], [place] [address] 09 Jul, 2014 [facility] [address] [id number] [address] [place] [address], [place] [address] 17 Jul, 2014 [facility] [address] [id number] [address] [place] [address], [place] [address] 17 Jul, 2014 [facility] [address] [id number] [address] [place] [id number] 16 Jul, 2014 [facility] [address] [id number] [address] [place] [address], [place] [address] 16 Jul, 2014 [facility] [address] [id number] [address] [place] [address], [place] [address] 16 Jul, 2014 [facility] [address] [id number] [address] [place] [address], [place] [address] 16 Jul, 2014 [facility] [address] [id number] [address] [place] [address], [place] [address] 16 Jul, 2014 [facility] [address] [id number] [address] [place] [address], [place] [address] 16 Jul, 2014 [facility] [address] [id number] [address] [place] [address], [place] [address] 16 Jul, 2014 [facility] [address] [id number] [address] [place] [address], [place] [address] 16 Jul, 2014 [facility] [address] [id number] [address] [place] [address], [place] [address] 16 Jul, 2014 [facility] [address] [id number] [address] [place] [address], [place] [address] 16 Jul, 2014 [facility] [address] [id number] [address] [place] [address] 16 Jul, 2014 [facility] [address] [id number] [address] [place] [id number] Jul, 2014 [facility] [address] [id number] [address] [place] [address], [place] [address] 16 Jul, 2014 [facility] [address] [id number] [address] [place] [address], [place] [address] 16 Jul, 2014 [facility] [address] [id number] [address] [place] [id number] May, [facility] [address] [id number] [address] [place] [address] May, [facility] [address] [id number] [address] [place] [address], [place] [address] May, [facility] [address] [id number] [address] [place] [address], [place] [address] May, [facility] [address] [id number] [address] [place] [address], [place] [address] May, [facility] [address] [id number] [address] [place] [address], [place] [address] May, [facility] [address] [id number] [address] [place] [address], [place] [address] May, [facility] [address] [id number] [address] [place] [address], [place] [address] May, [facility] [address] [id number] [address] [place] [address], [place] [address] May, [facility] [address] [id number] [address] [place] [address], [place] [address] May, [facility] [address] [id number] [address] [place] [address], [place] [address] Apr, [facility] [address] [id number] [address] [place] [address], [place] [address] Apr, [facility] [address] [id number] 23 [place] [address], [place] [address] Apr, [facility] [address] [id number] [address] [place] [address], [place] [address] Apr, [facility] [address] [id number] [address] [place] [address], [place] [address] Apr, [facility] [address] [id number] [address] [place] [address], [place] [address] Apr, [facility] [address] [id number] [address] [place] [address], [place] [address] Mar, [facility] [address] [id number] [address] [place] [address], [place] [address] Mar, [facility] [address] [id number] [address] [place] [address], [place] [address] Mar, [facility] [address] [id number] [address] [place] [address], [place] [address] Mar, [facility] [address] [id number] [address] [place] [address], [place] [address] Mar, [facility] [address] [id number] [address] [place] [address], [place] [address] Mar, [facility] [address] [id number] [address] [place] [address], [place] [address] Mar, [facility] [address] [id number] [address] [place] [address], [place] [address] Mar, [facility] [address] [id number] [address] [place] [address], [place] [address] Mar, [facility] [address] [id number] [address] [place] [address], [place] [address] Mar, [facility] [address] [id number] [address] [place] [address], [place] [address] Mar, [facility] [address] [id number] [address] [place] [address], [place] [address] Feb, [facility] [address] [id number] [address] [place] [address], [place] [address] 30 Feb, 2014 [facility] [address] [id number] [address] [place] [address], [place] [address] Feb, [facility] [address] [id number] [address] [place] [address], [place] [address] Feb, [facility] [address] [id number] [address] [place] [address], [place] [address] Feb, [facility] [address] [id number] [address] [place] [address], [place] [address] Feb, [facility] [address] [id number] [address] [place] [address], [place] [address] Feb, [facility] [address] [id number] [address] [place] [address], [place] [address] Feb, [facility] [address] [id number] [address] [place] [address], [place] [address] Feb, [facility] [address] [id number] [address] [place] [address], [place] [address] Feb, [facility] [address] [id number] [address] [place] [address], [place] [address] Jan, [facility] [address] [id number] [address] [place] [address], [place] [address] 22 Jan, 2014 [facility] [address] [id number] [address] [place] [address], [place] [address] 16 Jan, 2014 [facility] [address] [id number] [address] [place] [address], [place] [address] 16 Jan, 2014 [facility] [address] [id number] [address] [place] [address], [place] [address] Jan, [facility] [address] [id number] [address] [place] [address], [place] [address] Jan, [facility] [address] [id number] [address] [place] [address], [place] [address] Jan, [facility] [address] [id number] [address] [place] [address], [place] [address] Dec, [facility] [address] [id number] [address] [place] [address], [place] [address] Dec, [facility] [address] [id number] [address] [place] [address], [place] [address] Dec, [facility] [address] [id number] [address] [place] [address], [place] [address] Dec, [facility] [address] [id number] [address] [place] [address], [place] [address] Dec, [facility] [address] [id number] [address] [place] [address], [place] [address] Dec, [facility] [address] [id number] [address] [place] [address], [place] [address] Dec, [facility] [address] [id number] [address] [place] [address], [place] [address] Dec, [facility] [address] [id number] [address] [place] [address], [place] [address] Oct, [facility] [address] [id number] [address] [place] [address], [place] [address] Oct, [facility] [address] [id number] [address] [place] [address], [place] [address] September, [facility] [address] [id number] [address] [place] [address], [place] [address] September, [facility] [address] [id number] [address] [place] [address], [place] [address] September, [facility] [address] [id number] [address] [place] [address], [place] [address] September, [facility] [address] [id number] [address] [place] [address], [place] [address] September, [facility] [address] [id number] [address] [place] [address], [place] [address] September, [facility] [address] [id number] [address] [place] [address], [place] [address] September, [facility] [address] [id number] [address] [place] [address], [place] [address] Aug, [facility] [address] [id number] [address] [place] [address], [place] [address] Aug, [facility] [address] [id number] [address] [place] [address], [place] [address] Jul, [facility] [address] [id number] [address] [place] [address], [place] [address] 24 Jul, 2013 [facility] [address] [id number] [address] [place] [address], [place] [address] Jul, [facility] [address] [id number] [address] [place] [address], [place] [address] 17 Jul, 2013 [facility] [address] [id number] [address] [place] [address], [place] [address] 14 Jul, 2013 [facility] [address] [id number] [address] [place] [address], [place] [address] 14 Jul, 2013 [facility] [address] [id number] [address] [place] [address], [place] [address] Jul, [facility] [address] [id number] [address] [place] [address], [place] [address] Jul, [facility] [address] [id number] [address] [place] [address], [place] [address] 15 May, 2013 [facility] [address] [id number] [address] [place] [address], [place] [address] May, [facility] [address] [id number] [address] [place] [address], [place] [address] May, [facility] [address] [id number] [address] [place] [address], [place] [address] May, [facility] [address] [id number] [address] [place] [address], [place] [address] Apr, [facility] [address] [id number] [address] [place] [address], [place] [address] Mar, [facility] [address] [id number] [address] [place] [address], [place] [address] Mar, [facility] [address] [id number] [address] [place] [address], [place] [address] Mar, [facility] [address] [id number] [address] [place] [address] Mar, [facility] [address] [id number] [address] [place] [address], [place] [address] Mar, [facility] [address] [id number] [address] [place] [address] Mar, [facility] [address] [id number] [address] [place] [address] Mar, [facility] [address] [id number] [address] [place] [address] Mar, [facility] [address] [id number] [address] [place] [address], [place] [address] Mar, [facility] [address] [id number] [address] [place] [address] Mar, [facility] [address] [id number] [address] [place] [address] Mar, [facility] [address] [id number] [address] [place] [address] Mar, [facility] [address] [id number] [address] [place] [address] Feb, [facility] [address] [id number] [address] [place] [address] Feb, [facility] [address] [id number] [address] [place] [address] Feb, [facility] [address] [id number] [address] [place] [address] Feb, [facility] [address] [id number] [address] [place] [address] Feb, [facility] [address] [id number] [address] [place] [address] Jan, [facility] [address] [id number] [address] [place] [address] Dec, [facility] [address] [id number] [address] [place] [address], [place] [address] Dec, [facility] [address] [id number] [address] [place] [address], [place] [address] Dec, [facility] [address] [id number] [address] [place] [address], [place] [address] Nov, [facility] [address] [id number] [address] [place] [address], [place] [address] Nov, [facility] [address] [id number] [address] [place] [address], [place] [address] Nov, [facility] [address] [id number] [address] [place] [address], [place] [address] Oct, [facility] [address] [id number] [address] [place] [address], [place] [address] Oct, [facility] [address] [id number] [address] [place] [address], [place] [address] Oct, [facility] [address] [id number] [address] [place] [address], [place] [address] September, [facility] [address] [id number] [address] [place] [address], [place] [address] September, [facility] [address] [id number] [address] [place] [address], [place] [address] September, [facility] [address] [id number] [address] [place] [address], [place] [address] September, [facility] [address] [id number] [address] [place] [address], [place] [address] September, [facility] [address] [id number] [address] [place] [address], [place] [address] Aug, [facility] [address] [id number] [address] [place] [address], [place] [address] Aug, [facility] [address] [id number] [address] [place] [address], [place] [address] Aug, [facility] [address] [id number] [address] [place] [address], [place] [address] Jul, [facility] [address] [id number] [address] [place] [address], [place] [address] Jul, [facility] [address] [id number] [address] [place] [address], [place] [address] Jul, [facility] [address] [id number] [address] [place] [address], [place] [address] Jul, [facility] [address] [id number] [address] [place] [address], [place] [address] Jul, [facility] [address] [id number] [address] [place] [address], [place] [address] Jul, [facility] [address] [id number] [address] [place] [address], [place] [address] Jul, [facility] [address] [id number] [address] [place] [address], [place] [address] May, [facility] [address] [id number] [address] [place] [address], [place] [address] May, [facility] [address] [id number] [address] [place] [address], [place] [address] May, [facility] [address] [id number] [address] [place] [address], [place] [address] Apr, [facility] [address] [id number] [address] [place] [address], [place] [address] Apr, [facility] [address] [id number] [address] [place] [address], [place] [address] Apr, [facility] [address] [id number] [address] [place] [address], [place] [address] Apr, [facility] [address] [id number] [address] [place] [address], [place] [address] Apr, [facility] [address] [id number] [address] [place] [address], [place] [address] Mar, [facility] [address] [id number] [address] [place] [address], [place] [address] Mar, [facility] [address] [id number] [address] [place] [address], [place] [address] Mar, [facility] [address] [id number] [address] [place] [address], [place] [address] Mar, [facility] [address] [id number] [address] [place] [address], [place] [address] Feb, [facility] [address] [id number] [address] [place] [address], [place] [address] Feb, [facility] [address] [id number] [address] [place] [address], [place] [address] Feb, [facility] [address] [id number] [address] [place] [address], [place] [address] Feb, [facility] [address] [id number] [address] [place] [address], [place] [address] Feb, [facility] [address] [id number] [address] [place] [address], [place] [address] Jan, [facility] [address] [id number] [address] [place] [address], [place] [address] Dec, [facility] [address] [id number] [address] [place] [address], [place] [address] Dec, [facility] [address] [id number] [address] [place] [address], [place] [address] Dec, [facility] [address] [id number] [address] [place] [address], [place] [address] Nov, [facility] [address] [id number] [address] [place] [address], [place] [address] Nov, [facility] [address] [id number] [address] [place] [address], [place] [address] Nov, [facility] [address] [id number] [address] [place] [address], [place] [address] Oct, [facility] [address] [id number] [address] [place] [address], [place] [address] Oct, [facility] [address] [id number] [address] [place] [address], [place] [address] Oct, [facility] [address] [id number] [address] [place] [address], [place] [address] Oct, [facility] [address] [id number] [address] [place] [address], [place] [address] September, [facility] [address] [id number] [address] [place] [address], [place] [address] September, [facility] [address] [id number] [address] [place] [address], [place] [address] Aug, [facility] [address] [id number] [address] [place] [address], [place] [address] Aug, [facility] [address] [id number] [address] [place] [address], [place] [address] Aug, [facility] [address] [id number] [address] [place] [address], [place] [address] Aug, [facility] [address] [id number] [address] [place] [address], [place] [address] Aug, [facility] [address] [id number] [address] [place] [address], [place] [address] Aug, [facility] [address] [id number] [address] [place] [address], [place] [address] Aug, [facility] [address] [id number] [address] [place] [address], [place] [address] Jul, [facility] [address] [id number] [address] [place] [address], [place] [address] Jul, [facility] [address] [id number] [address] [place] [address] Jul, [facility] [address] [id number] [address] [place] [address] May, [facility] [address] [id number] [address] [place] [address] May, [facility] [address] [id number] [address] [place] [address] May, [facility] [address] [id number] [address] [place] [address] Apr, [facility] [address] [id number] [address] [place] [address] Apr, [facility] [address] [id number] [address] [place] [address] Mar, [facility] [address] [id number] [address] [place] [address] Mar, [facility] [address] [id number] [address] [place] [address] Mar, [facility] [address] [id number] [address] [place] [address] Mar, [facility] [address] [id number] [address] [place] [address] Mar, [facility] [address] [id number] [address] [place] [address] Mar, [facility] [address] [id number] [address] [place] [address] Feb, [facility] [address] [id number] [address] [place] [address] Feb, [facility] [address] [id number] [address] [place] [address] Feb, IMMUNIZATIONS No Known Immunizations SOCIAL HISTORY [...]
--- OUTSIDE RECORDS SUMMARY | 2020-01-03 07:51 | XMS REPORT ---
Author Author Tra SILVERIO Organization [facility] Address [address] [place] [address] Care Team Providers Care [employer]ian [employer] Name Role Phone FERNY SILVERIO Unavailable PROBLEMS Type Condition ICD9-CM Code UPD89-GR Code Onset Dates Condition S tatus SNOMED Code Problem Insulin long-term use Z79.4 Active 986370514 Problem Hypertension I10 Active 7809413 3 Problem Diabetes E11.9 Active 95853721 Problem Hypoxia R09.02 Active 804647726 Problem Anxiety F41.9 Active 30668365 Problem Port catheter in place Z95.828 Active 516152563 Problem Pressure ulcer of other site, stage 3 L89.893 Active 701907991 Problem COPD (chronic obstructive pulmonary disease) J44.9 Active 33076154 Problem Type 2 diabetes mellitus wit h diabetic peripheral angiopathy without gangrene E11.51 Active 615996481 Problem Back pain M54.9 Active 340775481 Problem PAD (peripheral artery disease) I73.9 Active 894762580 Problem Lumbar radiculopathy, chronic M54.16 Active 397895948 Problem Recurrent major depressive disorder, in full remission F33.42 Active 744859400 Problem shelter current use of insulin Z79.4 Active 197934891 ALLERGIES No Information ENCOUNTERS Encounter Location Date Diagnosis [facility] [address] [facility] [id number] [address] [place] [phone] Nov, Back pain M54.9 [facility] [address] [facility] [id number] [address] [place] [id number] Nov, Anxiety F41.9 [facility] [address] [facility] [id number] [address] [place] [id number] Nov, [facility] [address] [facility] [id number] [address] [place] [id number] Oct, Back pain M54.9 [facility] [address] [id number] [address] [place] [id number] 07 Oct, 2018 [facility] [address] [id number] [address] [place] [phone] Oct, [facility] [address] [id number] [address] [place] [id number] Oct, [facility] [address] [id number] [address] [place] [id number] September, Back pain M54.9 [facility] [address] [id number] [address] [place] [id number] September, [facility] [address] [id number] [address] [place] [phone] September, [facility] [address] [id number] [address] [place] [id number] September, [facility] [address] [id number] [address] [place] [id number] Aug, Back pain M54.9 [facility] [address] [id number] [address] [place] [id number] Aug, Anxiety F41.9 [facility] [address] [id number] [address] [place] [id number] Aug, [facility] [address] [id number] [address] [place] [id number] Aug, Pressure ulcer of other site , stage 3 L89.893 and COPD (chronic obstructive pulmonary disease) J44.9 [facility] [address] [id number] [address] [place] [address] Aug, History of smoking Z87.891 [facility] [address] [id number] [address] [place] [id number] Jul, Type 2 diabetes mellitus wit h diabetic peripheral angiopathy without gangrene E11.51 [facility] [address] [id number] [address] [place] [address] Jul, Back pain M54.9 [facility] [address] [id number] [address] [place] [id number] Jul, Anxiety F41.9 [facility] [address] [id number] [address] [place] [id number] Jul, [facility] [address] [id number] [address] [place] [id number] 13 Jul, 2018 Back pain M54.9 [facility] [address] [id number] [address] [place] [id number] Jul, Back pain M54.9 [facility] [address] [facility] [id number] [address] [place] [id number] Jul, Lumbar radiculopathy, chroni c M54.16 ; Hypertension I10 and Type 2 diabetes mellitus with diabetic peripheral angiopathy without gangrene E11.51 [facility] [address] [id number] [address] [place] [id number] Jul, Back pain M54.9 [facility] [address] [facility] [id number] [address] [place] [id number] Jul, Back pain M54.9 and Anxiety F41.9 [facility] [address] [facility] [id number] [address] [place] [id number] Jul, [facility] [address] [id number] [address] [place] [id number] May, Back pain M54.9 and Anxiety F41.9 [facility] [address] [id number] [address] [place] [phone] May, [facility] [address] [facility] [id number] [address] [place] [id number] Apr, Radiculopathy of lumbar rhiannon on M54.16 ; Back pain M54.9 and Anxiety F41.9 [facility] [address] [id number] [address] [place] [address] Apr, Diabetes E11.9 ; Muscle spas m M62.838 and Lumbar radiculopathy, chronic M54.16 [facility] [address] [id number] [address] [place] [id number] Apr, [facility] [address] [id number] [address] [place] [id number] Apr, [facility] [address] [id number] [address] [place] [id number] Mar, Back pain M54.9 and Anxiety F41.9 [facility] [address] [id number] [address] [place] [id number] Mar, [facility] [address] [facility] [id number] [address] [place] [id number] Mar, [facility] [address] [id number] [address] [place] [id number] Mar, [facility] [address] [facility] [id number] [address] [place] [id number] Mar, Encounter for immunization Z 23 [facility] [address] [facility] [id number] [address] [place] [id number] Feb, Back pain M54.9 and Anxiety F41.9 [facility] [address] [id number] [address] [place] [id number] Feb, Back pain M54.9 and Anxiety F41.9 [facility] [address] [id number] [address] [place] [phone] Jan, Back pain M54.9 and Anxiety F41.9 [facility] [address] [facility] [id number] [address] [place] [id number] Jan, [facility] [address] [facility] [id number] [address] [place] [id number] Dec, [facility] [address] [id number] [address] [place] [id number] Dec, Back pain M54.9 and Anxiety F41.9 [facility] [address] [facility] [id number] [address] [place] [id number] Dec, Diabetes E11.9 ; Type 2 diab etes mellitus with diabetic peripheral angiopathy without gangrene E11.51 ; Lumbar radiculopathy, chronic M54.16 ; COPD (chronic obstructive pulmonary disease) J44.9 and Anxiety F41.9 [facility] [address] [facility] [id number] [address] [place] [id number] Dec, Back pain M54.9 and Anxiety F41.9 [place] [address] [facility] [id number] [address] [place] [id number] Nov, Back pain M54.9 and Anxiety F41.9 [place] [address] [place] [id number] [address] [place] [phone] Oct, [facility] [address] [facility] [id number] [address] [place] [id number] Oct, Back pain M54.9 and Anxiety F41.9 [place] [address] [facility] [id number] [address] [place] [id number] September, Anxiety F41.9 and Back pain M54.9 [place] [address] [facility] [id number] [address] [place] [address] September, Diabetes E11.9 ; Hypertensio n I10 ; COPD (chronic obstructive pulmonary disease) J44.9 and Lumbar radiculopathy, chronic M54.16 [facility] [address] [facility] [id number] [address] [place] [id number] September, Anxiety F41.9 [place] [address] [facility] [id number] [address] [place] [id number] Aug, [place] [address] [facility] [id number] [address] [place] [id number] Aug, [facility] [address] [id number] [address] [place] [id number] Aug, Anxiety F41.9 and Back pain M54.9 [place] [address] 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 [id number] [address] [place] [id number] Jul, Back pain M54.9 [place] [address] [facility] [id number] [address] [place] [id number] Jul, [place] [address] [id number] [address] [place] [id number] Jul, Anxiety F41.9 and Back pain M54.9 [place] [address] [facility] [id number] [address] [place] [phone] Jul, Diabetes E11.9 [place] [address] [facility] [id number] [address] [place] [phone] May, [place] [address] [facility] [id number] [address] [place] [id number] May, Diabetes E11.9 ; Anxiety F41 .9 ; Back pain M54.9 and COPD (chronic obstructive pulmonary disease) J44.9 [place] [address] [facility] [id number] [address] [place] [id number] May, Back pain M54.9 [place] [address] [facility] [id number] [address] [place] [id number] May, [facility] [address] [id number] [address] [place] [id number] Apr, Back pain M54.9 [facility] [address] [id number] [address] [place] [phone] 30 Mar, 2017 Back pain M54.9 [facility] [address] [id number] [address] [place] [id number] Mar, [facility] [address] [id number] [address] [place] [id number] 16 Mar, 2017 [facility] [address] [id number] [address] [place] [id number] 14 Mar, 2017 Radiculopathy of lumbar rhiannon on M54.16 [facility] [address] [id number] [address] [place] [id number] 13 Mar, 2017 [facility] [address] [id number] [address] [place] [id number] 07 Mar, 2017 Encounter for immunization Z 23 and Lumbar radiculopathy, chronic M54.16 [facility] [address] [id number] [address] [place] [id number] Mar, Back pain M54.9 and Anxiety F41.9 [facility] [address] [id number] [address] [place] [id number] 10 Feb, 2017 Acute bilateral low back boy n with left-sided sciatica M54.42 and Acute bilateral low back pain with right-sided sciatica M54.41 [facility] [address] [id number] [address] [place] [phone] Feb, [facility] [address] [id number] [address] [place] [id number] Feb, Back pain M54.9 [facility] [address] [id number] [address] [place] [id number] 05 Jan, 2017 Back pain M54.9 and Anxiety F41.9 [facility] [address] [id number] [address] [place] [id number] 05 Jan, 2017 Diabetes E11.9 [facility] [address] [id number] [address] [place] [phone] Dec, Diabetes E11.9 ; Back pain M 54.9 ; Anxiety F41.9 and Insulin long- term use Z79.4 [facility] [address] [id number] [address] [place] [id number] Dec, Anxiety F41.9 [facility] [address] [id number] [address] [place] [id number] Dec, Back pain M54.9 [facility] [address] [id number] [address] [place] [id number] Nov, Back pain M54.9 [facility] [address] [id number] [address] [place] [id number] Oct, Back pain M54.9 and Anxiety F41.9 [facility] [address] [id number] [address] [place] [id number] September, Back pain M54.9 [facility] [address] [id number] [address] [place] [id number] September, Back pain M54.9 and Anxiety F41.9 [facility] [address] [facility] [id number] [address] [place] [id number] Aug, Diabetes E11.9 ; Anxiety F41 .9 ; Back pain M54.9 and PAD (peripheral artery disease) I73.9 [facility] [address] [id number] [address] [place] [id number] Aug, Anxiety F41.9 [facility] [address] [id number] [address] [place] [id number] Aug, Back pain M54.9 [facility] [address] [facility] [id number] [address] [place] [id number] Jul, Back pain M54.9 [facility] [address] [id number] [address] [place] [id number] Jul, Back pain M54.9 [facility] [address] [id number] [address] [place] [id number] 23 Jul, 2016 Back pain M54.9 [facility] [address] [id number] [address] [place] [id number] 16 Jul, 2016 Dorsalgia M54.9 [facility] [address] [id number] [address] [place] [id number] 14 Jul, 2016 [facility] [address] [id number] [address] [place] [id number] May, Back pain M54.9 [facility] [address] [facility] [id number] [address] [place] [id number] May, Diabetes E11.9 ; Anxiety F41 .9 ; Port catheter in place Z95.828 ; Encounter for immunization Z23 and Insulin long-term use Z79.4 [facility] [address] [id number] [address] [place] [id number] Apr, Back pain M54.9 [facility] [address] [id number] [address] [place] [id number] Apr, Back pain M54.9 [facility] [address] [id number] [address] [place] [id number] Apr, [facility] [address] [id number] [address] [place] [address] Apr, Back pain M54.9 [facility] [address] [id number] [address] [place] [id number] Mar, COPD (chronic obstructive pu lmonary disease) J44.9 [facility] [address] [id number] [address] [place] [id number] Feb, [facility] [address] [id number] [address] [place] [id number] 30 Jan, 2016 [facility] [address] [id number] [address] [place] [id number] 20 Jan, 2016 [facility] [address] [id number] [address] [place] [id number] 07 Jan, 2016 [facility] [address] [id number] [address] [place] [id number] 02 Jan, 2016 [facility] [address] [id number] [address] [place] [address] Dec, Diabetes E11.9 ; Hypoxia R09 .02 and Back pain M54.9 [facility] [address] [id number] [address] [place] [id number] Dec, [facility] [address] [id number] [address] [place] [id number] Nov, [facility] [address] [id number] [address] [place] [id number] Oct, Anxiety F41.9 [facility] [address] [id number] [address] [place] [address] Oct, Back pain M54.9 [facility] [address] [id number] [address] [place] [id number] September, Back pain M54.9 [facility] [address] [id number] [address] [place] [address] September, Diabetes E11.9 [facility] [address] [id number] [address] [place] [id number] September, [facility] [address] [id number] [address] [place] [id number] September, Diabetes E11.9 ; Insulin sarai g-term use Z79.4 and Back pain M54.9 [facility] [address] [id number] [address] [place] [id number] Aug, Back pain M54.9 [facility] [address] [id number] Aug, Back pain M54.9 ; Anxiety F4 1.9 and Arthropathy, unspecified M12.9 [facility] [address] [id number] Jul, Back pain M54.9 [facility] [address] [id number] Jul, Anxiety F41.9 [facility] [address] [address] Jul, Back pain M54.9 [facility] [address] [id number] Jul, [facility] [address] [id number] Jul, [facility] [address] [address] May, Back pain M54.9 ; Diabetes E 11.9 ; Insulin long-term use Z79.4 ; COPD (chronic obstructive pulmonary disease) J44.9 and Hypertension I10 [place] [address] [address] May, Chronic pain G89.29 [place] [address] [address] Apr, [place] [address] [id number] Apr, [facility] [address] [address] Mar, [place] [address] [id number] Mar, Encounter for immunization Z 23 and Diabetes E11.9 [facility] [address] [id number] Feb, [facility] [address] [id number] [address] [place] [id number] Feb, [facility] [address] [id number] [address] [place] [address], [place] [address] Jan, [facility] [address] [id number] [address] [place] [address], [place] [address] Jan, [facility] [address] [id number] [address] [place] [address], [place] [address] Dec, [facility] [address] [id number] [address] [place] [id number] Dec, [facility] [address] [id number] [address] [place] [address], [place] [address] Dec, Unspecified arthropathy, sit e unspecified 716.90 and Diabetes mellitus type 2, uncontrolled 250.02 [facility] [address] [id number] [address] [place] [address], [place] [address] Dec, [facility] [address] [id number] [address] [place] [id number] Nov, [facility] [address] [id number] [address] [place] [phone] Oct, [facility] [address] [id number] [address] [place] [id number] September, [facility] [address] [id number] [address] [place] [id number] September, [facility] [address] [id number] [address] [place] [id number] September, [facility] [address] [id number] [address] [place] [id number] September, [facility] [address] [id number] [address] [place] [id number] Aug, [facility] [address] [id number] [address] [place] [id number] Aug, [facility] [address] [id number] [address] [place] [address], [place] [address] 18 Jul, 2014 [facility] [address] [id number] [address] [place] [address], [place] [address] 18 Jul, 2014 [facility] [address] [id number] [address] [place] [address], [place] [address] 16 Jul, 2014 [facility] [address] [id number] [address] [place] [address], [place] [address] 16 Jul, 2014 [facility] [address] [id number] [address] [place] [address], [place] [address] 16 Jul, 2014 [facility] [address] [id number] [address] [place] [address], [place] [address] 16 Jul, 2014 [facility] [address] [id number] [address] [place] [address], [place] [address] 16 Jul, 2014 [facility] [address] [id number] [address] [place] [address], [place] [address] 16 Jul, 2014 [facility] [address] [id number] [address] [place] [address], [place] [address] 16 Jul, 2014 [facility] [address] [id number] [address] [place] [address], [place] [address] 13 Jul, 2014 [facility] [address] [id number] [address] [place] [address], [place] [address] 13 Jul, 2014 [facility] [address] [id number] [address] [place] [address], [place] [address] 09 Jul, 2014 [facility] [address] [id number] [address] [place] [address], [place] [address] 09 Jul, 2014 [facility] [address] [id number] [address] [place] [address], [place] [id number] 17 Jul, 2014 [facility] [address] [id number] [address] [place] [address], [place] [id number] 17 Jul, 2014 [facility] [address] [id number] [address] [place] [id number] 16 Jul, 2014 [facility] [address] [id number] [address] [place] [address], [place] [address] 16 Jul, 2014 [facility] [address] [id number] [address] [place] [address], [place] [id number] 16 Jul, 2014 [facility] [address] [id number] [address] [place] [address], [place] [id number] 16 Jul, 2014 [facility] [address] [id number] [address] [place] [address], [place] [id number] 16 Jul, 2014 [facility] [address] [id number] [address] [place] [address], [place] [id number] 16 Jul, 2014 [facility] [address] [id number] [address] [place] [address], [place] [id number] 16 Jul, 2014 [facility] [address] [id number] [address] [place] [address], [place] [id number] 16 Jul, 2014 [facility] [address] [id number] [address] [place] [address], [place] [id number] 16 Jul, 2014 [facility] [address] [id number] [address] [place] [address], [place] [address] 16 Jul, 2014 [facility] [address] [id number] [address] [place] [id number] 16 Jul, 2014 [facility] [address] [id number] [address] [place] [id number] Jul, 2014 [facility] [address] [id number] [address] [place] [address], [place] [address] 16 Jul, 2014 [facility] [address] [id number] [address] [place] [address], [place] [address] 16 Jul, 2014 [facility] [address] [id number] [address] [place] [address] May, [facility] [address] [id number] [address] [place] [address] May, [facility] [address] [id number] [address] [place] [address], [place] [address] May, [facility] [address] [id number] [address] [place] [address], [place] [address] May, [facility] [address] [id number] [address] [place] [address], [place] [address] May, [facility] [address] [id number] [address] [place] [address], [place] [address] May, [facility] [address] [id number] [address] [place] [address], [place] [address] May, [facility] [address] [id number] [address] [place] [address], [place] [address] May, [facility] [address] [id number] [address] [place] [address], [place] [address] May, [facility] [address] [id number] [address] [place] [address], [place] [address] May, [facility] [address] [id number] [address] [place] [address], [place] [address] Apr, [facility] [address] [id number] [address] [place] [address], [place] [address] Apr, [facility] [address] [id number] [address] [place] [address], [place] [address] Apr, [facility] [address] [id number] [address] [place] [address], [place] [address] Apr, [facility] [address] [id number] [address] [place] [address], [place] [address] Apr, [facility] [address] [id number] [address] [place] [address], [place] [address] Apr, [facility] [address] [id number] [address] [place] [address], [place] [address] Mar, [facility] [address] [id number] [address] [place] [address], [place] [address] Mar, [facility] [address] [id number] [address] [place] [address], [place] [address] Mar, [facility] [address] [id number] [address] [place] [address], [place] [address] Mar, [facility] [address] [id number] [address] [place] [address], [place] [address] Mar, [facility] [address] [id number] [address] [place] [address], [place] [address] Mar, [facility] [address] [id number] [address] [place] [address], [place] [address] Mar, [facility] [address] [id number] [address] [place] [address], [place] [address] Mar, [facility] [address] [id number] [address] [place] [address], [place] [address] Mar, [facility] [address] [id number] [address] [place] [address], [place] [address] Mar, [facility] [address] [id number] [address] [place] [address], [place] [address] Mar, [facility] [address] [id number] [address] [place] [address], [place] [address] Feb, [facility] [address] [id number] [address] [place] [address], [place] [address] 30 Feb, 2014 [facility] [address] [id number] [address] [place] [address], [place] [address] Feb, [facility] [address] [id number] [address] [place] [address], [place] [address] Feb, [facility] [address] [id number] [address] [place] [address], [place] [address] Feb, [facility] [address] [id number] [address] [place] [address], [place] [address] Feb, [facility] [address] [id number] [address] [place] [address], [place] [address] Feb, [facility] [address] [id number] [address] [place] [address], [place] [address] Feb, [facility] [address] [id number] [address] [place] [address], [place] [address] Feb, [facility] [address] [id number] [address] [place] [address], [place] [address] Feb, [facility] [address] [id number] [address] [place] [address], [place] [address] Jan, [facility] [address] [id number] [address] [place] [address], [place] [address] 22 Jan, 2014 [facility] [address] [id number] [address] [place] [address], [place] [address] 16 Jan, 2014 [facility] [address] [id number] [address] [place] [address], [place] [address] 16 Jan, 2014 [facility] [address] [id number] [address] [place] [address], [place] [address] Jan, [facility] [address] [id number] [address] [place] [address], [place] [address] Jan, [facility] [address] [id number] [address] [place] [address], [place] [address] Jan, [facility] [address] [id number] [address] [place] [address], [place] [address] Dec, [facility] [address] [id number] [address] [place] [address], [place] [address] Dec, [facility] [address] [id number] [address] [place] [address], [place] [address] Dec, [facility] [address] [id number] [address] [place] [address], [place] [address] Dec, [facility] [address] [id number] [address] [place] [address], [place] [address] Dec, [facility] [address] [id number] [address] [place] [address], [place] [address] Dec, [facility] [address] [id number] [address] [place] [address], [place] [address] Dec, [facility] [address] [id number] [address] [place] [address], [place] [address] Dec, [facility] [address] [id number] [address] [place] [address], [place] [address] Oct, [facility] [address] [id number] [address] [place] [address], [place] [address] Oct, [facility] [address] [id number] [address] [place] [address], [place] [address] September, [facility] [address] [id number] [address] [place] [address], [place] [address] September, [facility] [address] [id number] [address] [place] [address], [place] [address] September, [facility] [address] [id number] [address] [place] [address], [place] [address] September, [facility] [address] [id number] [address] [place] [address], [place] [address] September, [facility] [address] [id number] [address] [place] [address], [place] [address] September, [facility] [address] [id number] [address] [place] [address], [place] [address] September, [facility] [address] [id number] [address] [place] [address], [place] [address] Aug, [facility] [address] [id number] [address] [place] [address], [place] [address] Aug, [facility] [address] [id number] [address] [place] [address], [place] [address] Jul, [facility] [address] [id number] [address] [place] [address], [place] [address] 24 Jul, 2013 [facility] [address] [id number] [address] [place] [address], [place] [address] Jul, [facility] [address] [id number] [address] [place] [address], [place] [address] 17 Jul, 2013 [facility] [address] [id number] [address] [place] [address], [place] [address] 14 Jul, 2013 [facility] [address] [id number] [address] [place] [address], [place] [address] 14 Jul, 2013 [facility] [address] [id number] [address] [place] [address], [place] [address] Jul, [facility] [address] [id number] [address] [place] [address], [place] [address] Jul, [facility] [address] [id number] [address] [place] [address], [place] [address] 15 May, 2013 [facility] [address] [id number] [address] [place] [address], [place] [address] May, [facility] [address] [id number] [address] [place] [address], [place] [address] May, [facility] [address] [id number] [address] [place] [address], [place] [address] May, [facility] [address] [id number] [address] [place] [address], [place] [address] Apr, [facility] [address] [id number] [address] [place] [address], [place] [address] Mar, [facility] [address] [id number] [address] [place] [address], [place] [address] Mar, [facility] [address] [id number] [address] [place] [address], [place] [address] Mar, [facility] [address] [id number] [address] [place] [address] Mar, [facility] [address] [id number] [address] [place] [address], [place] [address] Mar, [facility] [address] [id number] [address] [place] [address] Mar, [facility] [address] [id number] [address] [place] [address] Mar, [facility] [address] [id number] [address] [place] [address] Mar, [facility] [address] [id number] [address] [place] [address], [place] [address] Mar, [facility] [address] [id number] [address] [place] [address] Mar, [facility] [address] [id number] [address] [place] [address] Mar, [facility] [address] [id number] [address] [place] [address] Mar, [facility] [address] [id number] [address] [place] [address] Feb, [facility] [address] [id number] [address] [place] [address] Feb, [facility] [address] [id number] [address] [place] [address] Feb, [facility] [address] [id number] [address] [place] [address] Feb, [facility] [address] [id number] [address] [place] [address] Feb, [facility] [address] [id number] [address] [place] [address] Jan, [facility] [address] [id number] [address] [place] [address] Dec, [facility] [address] [id number] [address] [place] [address], [place] [address] Dec, [facility] [address] [id number] [address] [place] [address], [place] [address] Dec, [facility] [address] [id number] [address] [place] [address], [place] [address] Nov, [facility] [address] [id number] [address] [place] [address], [place] [address] Nov, [facility] [address] [id number] [address] [place] [address], [place] [address] Nov, [facility] [address] [id number] [address] [place] [address], [place] [address] Oct, [facility] [address] [id number] [address] [place] [address], [place] [address] Oct, [facility] [address] [id number] [address] [place] [address], [place] [address] Oct, [facility] [address] [id number] [address] [place] [address], [place] [address] September, [facility] [address] [id number] [address] [place] [address], [place] [address] September, [facility] [address] [id number] [address] [place] [address], [place] [address] September, [facility] [address] [id number] [address] [place] [address], [place] [address] September, [facility] [address] [id number] [address] [place] [address], [place] [address] September, [facility] [address] [id number] [address] [place] [address], [place] [address] Aug, [facility] [address] [id number] [address] [place] [address], [place] [address] Aug, [facility] [address] [id number] [address] [place] [address], [place] [address] Aug, [facility] [address] [id number] [address] [place] [address], [place] [address] Jul, [facility] [address] [id number] [address] [place] [address], [place] [address] Jul, [facility] [address] [id number] [address] [place] [address], [place] [address] Jul, [facility] [address] [id number] [address] [place] [address], [place] [address] Jul, [facility] [address] [id number] [address] [place] [address], [place] [address] Jul, [facility] [address] [id number] [address] [place] [address], [place] [address] Jul, [facility] [address] [id number] [address] [place] [address], [place] [address] Jul, [facility] [address] [id number] [address] [place] [address], [place] [address] May, [facility] [address] [id number] [address] [place] [address], [place] [address] May, [facility] [address] [id number] [address] [place] [address], [place] [address] May, [facility] [address] [id number] [address] [place] [address], [place] [address] Apr, [facility] [address] [id number] [address] [place] [address], [place] [address] Apr, [facility] [address] [id number] [address] [place] [address], [place] [address] Apr, [facility] [address] [id number] [address] [place] [address], [place] [address] Apr, [facility] [address] [id number] [address] [place] [address], [place] [address] Apr, [facility] [address] [id number] [address] [place] [address], [place] [address] Mar, [facility] [address] [id number] [address] [place] [address], [place] [address] Mar, [facility] [address] [id number] [address] [place] [address], [place] [address] Mar, [facility] [address] [id number] [address] [place] [address], [place] [address] Mar, [facility] [address] [id number] [address] [place] [address], [place] [address] Feb, [facility] [address] [id number] [address] [place] [address], [place] [address] Feb, [facility] [address] [id number] [address] [place] [address], [place] [address] Feb, [facility] [address] [id number] [address] [place] [address], [place] [address] Feb, [facility] [address] [id number] [address] [place] [address], [place] [address] Feb, [facility] [address] [id number] [address] [place] [address], [place] [address] Jan, [facility] [address] [id number] [address] [place] [address], [place] [address] Dec, [facility] [address] [id number] [address] [place] [address], [place] [address] Dec, [facility] [address] [id number] [address] [place] [address], [place] [address] Dec, [facility] [address] [id number] [address] [place] [address], [place] [address] Nov, [facility] [address] [id number] [address] [place] [address], [place] [address] Nov, [facility] [address] [id number] [address] [place] [address], [place] [address] Nov, [facility] [address] [id number] [address] [place] [address], [place] [address] Oct, [facility] [address] [id number] [address] [place] [address], [place] [address] Oct, [facility] [address] [id number] [address] [place] [address], [place] [address] Oct, [facility] [address] [id number] [address] [place] [address], [place] [address] Oct, [facility] [address] [id number] [address] [place] [address], [place] [address] September, [facility] [address] [id number] [address] [place] [address], [place] [address] September, [facility] [address] [id number] [address] [place] [address], [place] [address] Aug, [facility] [address] [id number] [address] [place] [address], [place] [address] Aug, [facility] [address] [id number] [address] [place] [address], [place] [address] Aug, [facility] [address] [id number] [address] [place] [address], [place] [address] Aug, [facility] [address] [id number] [address] [place] [address], [place] [phone] Aug, [facility] [address] [id number] [address] [place] [address], [place] [phone] Aug, [facility] [address] [id number] [address] [place] [address], [place] [id number] Aug, [facility] [address] [id number] [address] [place] [address], [place] [id number] Jul, [facility] [address] [id number] [address] [place] [address], [place] [id number] Jul, [facility] [address] [id number] [address] [place] [phone] Jul, [facility] [address] [id number] [address] [place] [phone] May, [facility] [address] [id number] [address] [place] [id number] May, [facility] [address] [id number] [address] [place] [id number] May, [facility] [address] [id number] [address] [place] [id number] Apr, [facility] [address] [id number] [address] [place] [phone] Apr, [facility] [address] [id number] [address] [place] [phone] Mar, [facility] [address] [id number] [address] [place] [phone] Mar, [facility] [address] [id number] [address] [place] [id number] Mar, [facility] [address] [id number] [address] [place] [phone] Mar, [facility] [address] [id number] [address] [place] [id number] Mar, [facility] [address] [id number] [address] [place] [id number] Mar, [facility] [address] [id number] [address] [place] [id number] Feb, [facility] [address] [id number] [address] [place] [id number] Feb, [facility] [address] [id number] [address] [place] [phone] Feb, IMMUNIZATIONS No Known Immunizations SOCIAL HISTORY Never Assessed REASON FOR VISIT PLAN OF CARE VITAL SIGNS Height 72 in 2014-08-10 Weight 267 lbs 2014-08-10 Temperature 98 degrees Fahrenheit 2014-08-10 Heart Rate 80 bpm 2014-08-10 Respiratory Rate 20 2014-08-10 Blood pressure systolic 150 mmHg 2014-08-10 Blood pressure diastolic 80 mmHg 2014-08-10 MEDICATIONS Unknown Medications RESULTS No Results PROCEDURES Procedure Date Ordered Result Body Site GLYCATED HEMOGLOBIN TEST August 10, 2014 INSTRUCTIONS MEDICATIONS ADMINISTERED No Known Medications [...]
--- OUTSIDE RECORDS SUMMARY | 2020-01-03 07:51 | XMS REPORT ---
Author Author Tra SILVERIO Organization [facility] Address [address] [place] [address] Care Team Providers Care Editor Map Name Role Phone FERNY SILVERIO Unavailable PROBLEMS Type Condition ICD9-CM Code NRL67-RD Code Onset Dates Condition S tatus SNOMED Code Problem Insulin long-term use Z79.4 Active 839911310 Problem Hypertension I10 Active 9955197 3 Problem Diabetes E11.9 Active 42866897 Problem Hypoxia R09.02 Active 062097216 Problem Anxiety F41.9 Active 75582045 Problem Port catheter in place Z95.828 Active 815488930 Problem Pressure ulcer of other site, stage 3 L89.893 Active 615712610 Problem COPD (chronic obstructive pulmonary disease) J44.9 Active 16716442 Problem Type 2 diabetes mellitus wit h diabetic peripheral angiopathy without gangrene E11.51 Active 581112654 Problem Back pain M54.9 Active 042696714 Problem PAD (peripheral artery disease) I73.9 Active 158320871 Problem Lumbar radiculopathy, chronic M54.16 Active 262585000 Problem Recurrent major depressive disorder, in full remission F33.42 Active 358211024 Problem shelter current use of insulin Z79.4 Active 438230879 ALLERGIES No Information ENCOUNTERS Encounter Location Date Diagnosis [facility] [address] [facility] [id number] [address] [place] [phone] Nov, Back pain M54.9 [facility] [address] [id number] [address] [place] [phone] Nov, Anxiety F41.9 [facility] [address] [facility] [id number] [address] [place] [phone] Nov, [facility] [address] [facility] [id number] [address] [place] [address] Oct, Back pain M54.9 [facility] [address] [id number] [address] [place] [phone] 07 Oct, 2018 [facility] [address] [id number] [address] [place] [phone] Oct, [facility] [address] [id number] [address] [place] [phone] Oct, [facility] [address] [id number] [address] [place] [phone] September, Back pain M54.9 [facility] [address] [id number] [address] [place] [phone] September, [facility] [address] [id number] [address] [place] [phone] September, [facility] [address] [id number] [address] [place] [address] September, [facility] [address] [id number] [address] [place] [address] Aug, Back pain M54.9 [facility] [address] [id number] [address] [place] [address] Aug, Anxiety F41.9 [facility] [address] [id number] [address] [place] [phone] Aug, [facility] [address] [id number] [address] [place] [address] Aug, Pressure ulcer of other site , stage 3 L89.893 and COPD (chronic obstructive pulmonary disease) J44.9 [facility] [address] [id number] [address] [place] [address] Aug, History of smoking Z87.891 [facility] [address] [id number] [address] [place] [phone] Jul, Type 2 diabetes mellitus wit h diabetic peripheral angiopathy without gangrene E11.51 [facility] [address] [id number] [address] [place] [phone] Jul, Back pain M54.9 [facility] [address] [id number] [address] [place] [phone] Jul, Anxiety F41.9 [facility] [address] [id number] [address] [place] [phone] Jul, [facility] [address] [id number] [address] [place] [phone] 13 Jul, 2018 Back pain M54.9 [facility] [address] [id number] [address] [place] [id number] Jul, Back pain M54.9 [facility] [address] [id number] [address] [place] [id number] Jul, Lumbar radiculopathy, chroni c M54.16 ; Hypertension I10 and Type 2 diabetes mellitus with diabetic peripheral angiopathy without gangrene E11.51 [facility] [address] [id number] [address] [place] [address] Jul, Back pain M54.9 [facility] [address] [id number] [address] [place] [address] Jul, Back pain M54.9 and Anxiety F41.9 [facility] [address] [id number] [address] [place] [phone] Jul, [facility] [address] [id number] [address] [place] [address] May, Back pain M54.9 and Anxiety F41.9 [facility] [address] [id number] [address] [place] [phone] May, [facility] [address] [id number] [address] [place] [phone] Apr, Radiculopathy of lumbar rhiannon on M54.16 ; Back pain M54.9 and Anxiety F41.9 [facility] [address] [id number] [address] [place] [phone] Apr, Diabetes E11.9 ; Muscle spas m M62.838 and Lumbar radiculopathy, chronic M54.16 [facility] [address] [id number] [address] [place] [address] Apr, [facility] [address] [id number] [address] [place] [address] Apr, [facility] [address] [id number] [address] [place] [phone] Mar, Back pain M54.9 and Anxiety F41.9 [facility] [address] [id number] [address] [place] [phone] Mar, [facility] [address] [id number] [address] [place] [phone] Mar, [facility] [address] [id number] [address] [place] [phone] Mar, [facility] [address] [id number] [address] [place] [phone] Mar, Encounter for immunization Z 23 [facility] [address] [id number] [address] [place] [phone] Feb, Back pain M54.9 and Anxiety F41.9 [facility] [address] [id number] [address] [place] [phone] Feb, Back pain M54.9 and Anxiety F41.9 [facility] [address] [id number] [address] [place] [phone] Jan, Back pain M54.9 and Anxiety F41.9 [facility] [address] [facility] [id number] [address] [place] [phone] Jan, [facility] [address] [id number] [address] [place] [phone] Dec, [facility] [address] [id number] [address] [place] [phone] Dec, Back pain M54.9 and Anxiety F41.9 [facility] [address] [id number] [address] [place] [phone] Dec, Diabetes E11.9 ; Type 2 diab etes mellitus with diabetic peripheral angiopathy without gangrene E11.51 ; Lumbar radiculopathy, chronic M54.16 ; COPD (chronic obstructive pulmonary disease) J44.9 and Anxiety F41.9 [facility] [address] [facility] [id number] [address] [place] [address] Dec, Back pain M54.9 and Anxiety F41.9 [place] [address] [id number] [address] [place] [address] Nov, Back pain M54.9 and Anxiety F41.9 [place] [address] [place] [id number] [address] [place] [phone] Oct, [facility] [address] [id number] [address] [place] [phone] Oct, Back pain M54.9 and Anxiety F41.9 [place] [address] [id number] [address] [place] [address] September, Anxiety F41.9 and Back pain M54.9 [place] [address] [id number] [address] [place] [address] September, Diabetes E11.9 ; Hypertensio n I10 ; COPD (chronic obstructive pulmonary disease) J44.9 and Lumbar radiculopathy, chronic M54.16 [facility] [address] [id number] [address] [place] [address] September, Anxiety F41.9 [place] [address] [id number] [address] [place] [phone] Aug, [place] [address] [id number] [address] [place] [phone] Aug, [facility] [address] [id number] [address] [place] [address] Aug, Anxiety F41.9 and Back pain M54.9 [place] [address] [id number] [address] [place] [phone] Aug, Medicare annual wellness vis it, initial Z00.00 ; COPD (chronic obstructive pulmonary disease) J44.9 ; PAD (peripheral artery disease) I73.9 ; Insulin long-term use Z79.4 ; Hypertension I10 ; Anxiety F41.9 ; Recurrent major depressive disorder, in full remission F33.42 ; Pressure ulcer of other site, stage 3 L89.893 ; Type 2 diabetes mellitus with diabetic peripheral angiopathy without gangrene E11.51 and 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 of insulin Z79.4 [place] [address] [id number] [address] [place] [phone] Jul, Back pain M54.9 [place] [address] [id number] [address] [place] [phone] Jul, [place] [address] [id number] [address] [place] [phone] Jul, Anxiety F41.9 and Back pain M54.9 [place] [address] [id number] [address] [place] [phone] Jul, Diabetes E11.9 [place] [address] [id number] [address] [place] [address] May, [place] [address] [id number] [address] [place] [phone] May, Diabetes E11.9 ; Anxiety F41 .9 ; Back pain M54.9 and COPD (chronic obstructive pulmonary disease) J44.9 [place] [address] [id number] [address] [place] [address] May, Back pain M54.9 [place] [address] [id number] [address] [place] [phone] May, [facility] [address] [id number] [address] [place] [phone] Apr, Back pain M54.9 [facility] [address] [id number] [address] [place] [phone] 30 Mar, 2017 Back pain M54.9 [facility] [address] [id number] [address] [place] [phone] Mar, [facility] [address] [id number] [address] [place] [phone] 16 Mar, 2017 [facility] [address] [id number] [address] [place] [phone] 14 Mar, 2017 Radiculopathy of lumbar rhiannon on M54.16 [facility] [address] [id number] [address] [place] [phone] 13 Mar, 2017 [facility] [address] [id number] [address] [place] [phone] 07 Mar, 2017 Encounter for immunization Z 23 and Lumbar radiculopathy, chronic M54.16 [facility] [address] [id number] [address] [place] [phone] Mar, Back pain M54.9 and Anxiety F41.9 [facility] [address] [id number] [address] [place] [phone] 10 Feb, 2017 Acute bilateral low back boy n with left-sided sciatica M54.42 and Acute bilateral low back pain with right-sided sciatica M54.41 [facility] [address] [id number] [address] [place] [phone] Feb, [facility] [address] [id number] [address] [place] [phone] Feb, Back pain M54.9 [facility] [address] [id number] [address] [place] [phone] 05 Jan, 2017 Back pain M54.9 and Anxiety F41.9 [facility] [address] [id number] [address] [place] [phone] 05 Jan, 2017 Diabetes E11.9 [facility] [address] [id number] [address] [place] [phone] Dec, Diabetes E11.9 ; Back pain M 54.9 ; Anxiety F41.9 and Insulin long- term use Z79.4 [facility] [address] [id number] [address] [place] [id number] Dec, Anxiety F41.9 [facility] [address] [id number] [address] [place] [address] Dec, Back pain M54.9 [facility] [address] [id number] [address] [place] [id number] Nov, Back pain M54.9 [facility] [address] [id number] [address] [place] [phone] Oct, Back pain M54.9 and Anxiety F41.9 [facility] [address] [id number] [address] [place] [phone] September, Back pain M54.9 [facility] [address] [id number] [address] [place] [address] September, Back pain M54.9 and Anxiety F41.9 [facility] [address] [facility] [id number] [address] [place] [phone] Aug, Diabetes E11.9 ; Anxiety F41 .9 ; Back pain M54.9 and PAD (peripheral artery disease) I73.9 [facility] [address] [id number] [address] [place] [phone] Aug, Anxiety F41.9 [facility] [address] [id number] [address] [place] [phone] Aug, Back pain M54.9 [facility] [address] [facility] [id number] [address] [place] [address] Jul, Back pain M54.9 [facility] [address] [id number] [address] [place] [address] Jul, Back pain M54.9 [facility] [address] [id number] [address] [place] [phone] 23 Jul, 2016 Back pain M54.9 [facility] [address] [id number] [address] [place] [phone] 16 Jul, 2016 Dorsalgia M54.9 [facility] [address] [id number] [address] [place] [phone] 14 Jul, 2016 [facility] [address] [id number] [address] [place] [address] May, Back pain M54.9 [facility] [address] [facility] [id number] [address] [place] [phone] May, Diabetes E11.9 ; Anxiety F41 .9 ; Port catheter in place Z95.828 ; Encounter for immunization Z23 and Insulin long-term use Z79.4 [facility] [address] [id number] [address] [place] [address] Apr, Back pain M54.9 [facility] [address] [id number] [address] [place] [address] Apr, Back pain M54.9 [facility] [address] [id number] [address] [place] [address] Apr, [facility] [address] [id number] [address] [place] [address] Apr, Back pain M54.9 [facility] [address] [id number] [address] [place] [phone] Mar, COPD (chronic obstructive pu lmonary disease) J44.9 [facility] [address] [id number] [address] [place] [id number] Feb, [facility] [address] [id number] [address] [place] [phone] 30 Jan, 2016 [facility] [address] [id number] [address] [place] [phone] 20 Jan, 2016 [facility] [address] [id number] [address] [place] [phone] 07 Jan, 2016 [facility] [address] [id number] [address] [place] [phone] 02 Jan, 2016 [facility] [address] [id number] [address] [place] [address] Dec, Diabetes E11.9 ; Hypoxia R09 .02 and Back pain M54.9 [facility] [address] [id number] [address] [place] [phone] Dec, [facility] [address] [id number] [address] [place] [address] Nov, [facility] [address] [id number] [address] [place] [phone] Oct, Anxiety F41.9 [facility] [address] [id number] [address] [place] [phone] Oct, Back pain M54.9 [facility] [address] [id number] [address] [place] [address] September, Back pain M54.9 [facility] [address] [id number] [address] [place] [phone] September, Diabetes E11.9 [facility] [address] [id number] [address] [place] [phone] September, [facility] [address] [id number] [address] [place] [phone] September, Diabetes E11.9 ; Insulin sarai g-term use Z79.4 and Back pain M54.9 [facility] [address] [id number] [address] [place] [address] Aug, Back pain M54.9 [facility] [address] [address] Aug, Back pain M54.9 ; Anxiety F4 1.9 and Arthropathy, unspecified M12.9 [facility] [address] [phone] Jul, Back pain M54.9 [facility] [address] [address] Jul, Anxiety F41.9 [facility] [address] [address] Jul, Back pain M54.9 [facility] [address] [phone] Jul, [facility] [address] [phone] Jul, [facility] [address] [address] May, Back pain M54.9 ; Diabetes E 11.9 ; Insulin long-term use Z79.4 ; COPD (chronic obstructive pulmonary disease) J44.9 and Hypertension I10 [place] [address] [address] May, Chronic pain G89.29 [place] [address] [address] Apr, [place] [address] [address] Apr, [facility] [address] [address] Mar, [place] [address] [phone] Mar, Encounter for immunization Z 23 and Diabetes E11.9 [facility] [address] [phone] Feb, [facility] [address] [id number] [address] [place] [phone] Feb, [facility] [address] [id number] [address] [place] [address], [place] [address] Jan, [facility] [address] [id number] [address] [place] [address], [place] [phone] Jan, [facility] [address] [id number] [address] [place] [address], [place] [id number] Dec, [facility] [address] [id number] [address] [place] [phone] Dec, [facility] [address] [id number] [address] [place] [address], [place] [address] Dec, Unspecified arthropathy, sit e unspecified 716.90 and Diabetes mellitus type 2, uncontrolled 250.02 [facility] [address] [id number] [address] [place] [address], [place] [id number] Dec, [facility] [address] [id number] [address] [place] [phone] Nov, [facility] [address] [id number] [address] [place] [phone] Oct, [facility] [address] [id number] [address] [place] [phone] September, [facility] [address] [id number] [address] [place] [phone] September, [facility] [address] [id number] [address] [place] [phone] September, [facility] [address] [id number] [address] [place] [id number] September, [facility] [address] [id number] [address] [place] [phone] Aug, [facility] [address] [id number] [address] [place] [id number] Aug, [facility] [address] [id number] [address] [place] [address], [place] [id number] 18 Jul, 2014 [facility] [address] [id number] [address] [place] [address], [place] [id number] 18 Jul, 2014 [facility] [address] [id number] [address] [place] [address], [place] [id number] 16 Jul, 2014 [facility] [address] [id number] [address] [place] [address], [place] [id number] 16 Jul, 2014 [facility] [address] [id number] [address] [place] [address], [place] [id number] 16 Jul, 2014 [facility] [address] [id number] [address] [place] [address], [place] [id number] 16 Jul, 2014 [facility] [address] [id number] [address] [place] [address], [place] [id number] 16 Jul, 2014 [facility] [address] [id number] [address] [place] [address], [place] [id number] 16 Jul, 2014 [facility] [address] [id number] [address] [place] [address], [place] [id number] 16 Jul, 2014 [facility] [address] [id number] [address] [place] [address], [place] [id number] 13 Jul, 2014 [facility] [address] [id number] [address] [place] [address], [place] [id number] 13 Jul, 2014 [facility] [address] [id number] [address] [place] [address], [place] [id number] 09 Jul, 2014 [facility] [address] [id number] [address] [place] [address], [place] [id number] 09 Jul, 2014 [facility] [address] [id number] [address] [place] [address], [place] [id number] 17 Jul, 2014 [facility] [address] [id number] [address] [place] [address], [place] [id number] 17 Jul, 2014 [facility] [address] [id number] [address] [place] [id number] 16 Jul, 2014 [facility] [address] [id number] [address] [place] [address], [place] [id number] 16 Jul, 2014 [facility] [address] [id number] [address] [place] [address], [place] [id number] 16 Jul, 2014 [facility] [address] [id number] [address] [place] [address], [place] [id number] 16 Jul, 2014 [facility] [address] [id number] [address] [place] [address], [place] [id number] 16 Jul, 2014 [facility] [address] [id number] [address] [place] [address], [place] [id number] 16 Jul, 2014 [facility] [address] [id number] [address] [place] [address], [place] [id number] 16 Jul, 2014 [facility] [address] [id number] [address] [place] [address], [place] [id number] 16 Jul, 2014 [facility] [address] [id number] [address] [place] [address], [place] [id number] 16 Jul, 2014 [facility] [address] [id number] [address] [place] [address], [place] [id number] 16 Jul, 2014 [facility] [address] [id number] [address] [place] [id number] 16 Jul, 2014 [facility] [address] [id number] [address] [place] [address] Jul, 2014 [facility] [address] [id number] [address] [place] [address], [place] [address] 16 Jul, 2014 [facility] [address] [id number] [address] [place] [address], [place] [address] 16 Jul, 2014 [facility] [address] [id number] [address] [place] [id number] May, [facility] [address] [id number] [address] [place] [address] May, [facility] [address] [id number] [address] [place] [address], [place] [address] May, [facility] [address] [id number] [address] [place] [address], [place] [address] May, [facility] [address] [id number] [address] [place] [address], [place] [address] May, [facility] [address] [id number] [address] [place] [address], [place] [address] May, [facility] [address] [id number] [address] [place] [address], [place] [address] May, [facility] [address] [id number] [address] [place] [address], [place] [address] May, [facility] [address] [id number] [address] [place] [address], [place] [address] May, [facility] [address] [id number] [address] [place] [address], [place] [address] May, [facility] [address] [id number] [address] [place] [address], [place] [address] Apr, [facility] [address] [id number] [address] [place] [address], [place] [address] Apr, [facility] [address] [id number] [address] [place] [address], [place] [address] Apr, [facility] [address] [id number] [address] [place] [address], [place] [address] Apr, [facility] [address] [id number] [address] [place] [address], [place] [address] Apr, [facility] [address] [id number] [address] [place] [address], [place] [address] Apr, [facility] [address] [id number] [address] [place] [address], [place] [address] Mar, [facility] [address] [id number] [address] [place] [address], [place] [address] Mar, [facility] [address] [id number] [address] [place] [address], [place] [address] Mar, [facility] [address] [id number] [address] [place] [address], [place] [address] Mar, [facility] [address] [id number] [address] [place] [address], [place] [address] Mar, [facility] [address] [id number] [address] [place] [address], [place] [address] Mar, [facility] [address] [id number] [address] [place] [address], [place] [address] Mar, [facility] [address] [id number] [address] [place] [address], [place] [address] Mar, [facility] [address] [id number] [address] [place] [address], [place] [address] Mar, [facility] [address] [id number] [address] [place] [address], [place] [address] Mar, [facility] [address] [id number] [address] [place] [address], [place] [address] Mar, [facility] [address] [id number] [address] [place] [address], [place] [address] Feb, [facility] [address] [id number] [address] [place] [address], [place] [address] 30 Feb, 2014 [facility] [address] [id number] [address] [place] [address], [place] [address] Feb, [facility] [address] [id number] [address] [place] [address], [place] [address] Feb, [facility] [address] [id number] [address] [place] [address], [place] [address] Feb, [facility] [address] [id number] [address] [place] [address], [place] [address] Feb, [facility] [address] [id number] [address] [place] [address], [place] [address] Feb, [facility] [address] [id number] [address] [place] [address], [place] [address] Feb, [facility] [address] [id number] [address] [place] [address], [place] [address] Feb, [facility] [address] [id number] [address] [place] [address], [place] [address] Feb, [facility] [address] [id number] [address] [place] [address], [place] [address] Jan, [facility] [address] [id number] [address] [place] [address], [place] [address] 22 Jan, 2014 [facility] [address] [id number] [address] [place] [address], [place] [address] 16 Jan, 2014 [facility] [address] [id number] [address] [place] [address], [place] [address] 16 Jan, 2014 [facility] [address] [id number] [address] [place] [address], [place] [address] Jan, [facility] [address] [id number] [address] [place] [address], [place] [address] Jan, [facility] [address] [id number] [address] [place] [address], [place] [address] Jan, [facility] [address] [id number] [address] [place] [address], [place] [address] Dec, [facility] [address] [id number] [address] [place] [address], [place] [address] Dec, [facility] [address] [id number] [address] [place] [address], [place] [address] Dec, [facility] [address] [id number] [address] [place] [address], [place] [address] Dec, [facility] [address] [id number] [address] [place] [address], [place] [address] Dec, [facility] [address] [id number] [address] [place] [address], [place] [address] Dec, [facility] [address] [id number] [address] [place] [address], [place] [address] Dec, [facility] [address] [id number] [address] [place] [address], [place] [address] Dec, [facility] [address] [id number] [address] [place] [address], [place] [address] Oct, [facility] [address] [id number] [address] [place] [address], [place] [address] Oct, [facility] [address] [id number] [address] [place] [address], [place] [address] September, [facility] [address] [id number] [address] [place] [address], [place] [address] September, [facility] [address] [id number] [address] [place] [address], [place] [address] September, [facility] [address] [id number] [address] [place] [address], [place] [address] September, [facility] [address] [id number] [address] [place] [address], [place] [address] September, [facility] [address] [id number] [address] [place] [address], [place] [address] September, [facility] [address] [id number] [address] [place] [address], [place] [address] September, [facility] [address] [id number] [address] [place] [address], [place] [address] Aug, [facility] [address] [id number] [address] [place] [address], [place] [address] Aug, [facility] [address] [id number] [address] [place] [address], [place] [address] Jul, [facility] [address] [id number] [address] [place] [address], [place] [address] 24 Jul, 2013 [facility] [address] [id number] [address] [place] [address], [place] [address] Jul, [facility] [address] [id number] [address] [place] [address], [place] [address] 17 Jul, 2013 [facility] [address] [id number] [address] [place] [address], [place] [address] 14 Jul, 2013 [facility] [address] [id number] [address] [place] [address], [place] [address] 14 Jul, 2013 [facility] [address] [id number] [address] [place] [address], [place] [address] Jul, [facility] [address] [id number] [address] [place] [address], [place] [address] Jul, [facility] [address] [id number] [address] [place] [address], [place] [address] 15 May, 2013 [facility] [address] [id number] [address] [place] [address], [place] [address] May, [facility] [address] [id number] [address] [place] [address], [place] [address] May, [facility] [address] [id number] [address] [place] [address], [place] [address] May, [facility] [address] [id number] [address] [place] [address], [place] [address] Apr, [facility] [address] [id number] [address] [place] [address], [place] [address] Mar, [facility] [address] [id number] [address] [place] [address], [place] [address] Mar, [facility] [address] [id number] [address] [place] [address], [place] [address] Mar, [facility] [address] [id number] [address] [place] [address] Mar, [facility] [address] [id number] [address] [place] [address], [place] [address] Mar, [facility] [address] [id number] [address] [place] [address] Mar, [facility] [address] [id number] [address] [place] [address] Mar, [facility] [address] [id number] [address] [place] [address] Mar, [facility] [address] [id number] [address] [place] [address], [place] [address] Mar, [facility] [address] [id number] [address] [place] [address] Mar, [facility] [address] [id number] [address] [place] [id number] Mar, [facility] [address] [id number] [address] [place] [address] Mar, [facility] [address] [id number] [address] [place] [id number] Feb, [facility] [address] [id number] [address] [place] [address] Feb, [facility] [address] [id number] [address] [place] [address] Feb, [facility] [address] [id number] [address] [place] [id number] Feb, [facility] [address] [id number] [address] [place] [id number] Feb, [facility] [address] [id number] [address] [place] [id number] Jan, [facility] [address] [id number] [address] [place] [id number] Dec, [facility] [address] [id number] [address] [place] [address], [place] [address] Dec, [facility] [address] [id number] [address] [place] [address], [place] [address] Dec, [facility] [address] [id number] [address] [place] [address], [place] [address] Nov, [facility] [address] [id number] [address] [place] [address], [place] [address] Nov, [facility] [address] [id number] [address] [place] [address], [place] [address] Nov, [facility] [address] [id number] [address] [place] [address], [place] [address] Oct, [facility] [address] [id number] [address] [place] [address], [place] [address] Oct, [facility] [address] [id number] [address] [place] [address], [place] [address] Oct, [facility] [address] [id number] [address] [place] [address], [place] [address] September, [facility] [address] [id number] [address] [place] [address], [place] [address] September, [facility] [address] [id number] [address] [place] [address], [place] [address] September, [facility] [address] [id number] [address] [place] [address], [place] [address] September, [facility] [address] [id number] [address] [place] [address], [place] [address] September, [facility] [address] [id number] [address] [place] [address], [place] [address] Aug, [facility] [address] [id number] [address] [place] [address], [place] [address] Aug, [facility] [address] [id number] [address] [place] [address], [place] [address] Aug, [facility] [address] [id number] [address] [place] [address], [place] [address] Jul, [facility] [address] [id number] [address] [place] [address], [place] [address] Jul, [facility] [address] [id number] [address] [place] [address], [place] [address] Jul, [facility] [address] [id number] [address] [place] [address], [place] [address] Jul, [facility] [address] [id number] [address] [place] [address], [place] [address] Jul, [facility] [address] [id number] [address] [place] [address], [place] [address] Jul, [facility] [address] [id number] [address] [place] [address], [place] [address] Jul, [facility] [address] [id number] [address] [place] [address], [place] [address] May, [facility] [address] [id number] [address] [place] [address], [place] [address] May, [facility] [address] [id number] [address] [place] [address], [place] [address] May, [facility] [address] [id number] [address] [place] [address], [place] [address] Apr, [facility] [address] [id number] [address] [place] [address], [place] [address] Apr, [facility] [address] [id number] [address] [place] [address], [place] [address] Apr, [facility] [address] [id number] [address] [place] [address], [place] [address] Apr, [facility] [address] [id number] [address] [place] [address], [place] [address] Apr, [facility] [address] [id number] [address] [place] [address], [place] [address] Mar, [facility] [address] [id number] [address] [place] [address], [place] [address] Mar, [facility] [address] [id number] [address] [place] [address], [place] [address] Mar, [facility] [address] [id number] [address] [place] [address], [place] [address] Mar, [facility] [address] [id number] [address] [place] [address], [place] [address] Feb, [facility] [address] [id number] [address] [place] [address], [place] [address] Feb, [facility] [address] [id number] [address] [place] [address], [place] [address] Feb, [facility] [address] [id number] [address] [place] [address], [place] [address] Feb, [facility] [address] [id number] [address] [place] [address], [place] [address] Feb, [facility] [address] [id number] [address] [place] [address], [place] [address] Jan, [facility] [address] [id number] [address] [place] [address], [place] [address] Dec, [facility] [address] [id number] [address] [place] [address], [place] [address] Dec, [facility] [address] [id number] [address] [place] [address], [place] [address] Dec, [facility] [address] [id number] [address] [place] [address], [place] [address] Nov, [facility] [address] [id number] [address] [place] [address], [place] [address] Nov, [facility] [address] [id number] [address] [place] [address], [place] [address] Nov, [facility] [address] [id number] [address] [place] [address], [place] [address] Oct, [facility] [address] [id number] [address] [place] [address], [place] [address] Oct, [facility] [address] [id number] [address] [place] [address], [place] [address] Oct, [facility] [address] [id number] [address] [place] [address], [place] [address] Oct, [facility] [address] [id number] [address] [place] [address], [place] [address] September, [facility] [address] [id number] [address] [place] [address], [place] [address] September, [facility] [address] [id number] [address] [place] [address], [place] [address] Aug, [facility] [address] [id number] [address] [place] [address], [place] [address] Aug, [facility] [address] [id number] [address] [place] [address], [place] [address] Aug, [facility] [address] [id number] [address] [place] [address], [place] [address] Aug, [facility] [address] [id number] [address] [place] [address], [place] [address] Aug, [facility] [address] [id number] [address] [place] [address], [place] [address] Aug, [facility] [address] [id number] [address] [place] [address], [place] [id number] Aug, [facility] [address] [id number] [address] [place] [address], [place] [id number] Jul, [facility] [address] [id number] [address] [place] [address], [place] [id number] Jul, [facility] [address] [id number] [address] [place] [id number] Jul, [facility] [address] [id number] [address] [place] [phone] May, [facility] [address] [id number] [address] [place] [id number] May, [facility] [address] [id number] [address] [place] [id number] May, [facility] [address] [id number] [address] [place] [id number] Apr, [facility] [address] [id number] [address] [place] [id number] Apr, [facility] [address] [id number] [address] [place] [id number] Mar, [facility] [address] [id number] [address] [place] [phone] Mar, [facility] [address] [id number] [address] [place] [id number] Mar, [facility] [address] [id number] [address] [place] [id number] Mar, [facility] [address] [id number] [address] [place] [id number] Mar, [facility] [address] [id number] [address] [place] [id number] Mar, [facility] [address] [id number] [address] [place] [id number] Feb, [facility] [address] [id number] [address] [place] [phone] Feb, [facility] [address] [id number] [address] [place] [id number] Feb, IMMUNIZATIONS No Known Immunizations SOCIAL HISTORY [...]
--- OUTSIDE RECORDS SUMMARY | 2020-01-03 07:51 | XMS REPORT ---
Author Author Tra SILVERIO Organization [facility] Address [address] [place] [address] Care Team Providers Care High Worker Name Role Phone FERNY SILVERIO Unavailable PROBLEMS Type Condition ICD9-CM Code ZIV48-BR Code Onset Dates Condition S tatus SNOMED Code Problem Insulin long-term use Z79.4 Active 403732253 Problem Hypertension I10 Active 5592756 3 Problem Diabetes E11.9 Active 14147438 Problem Hypoxia R09.02 Active 503001880 Problem Anxiety F41.9 Active 73321929 Problem Port catheter in place Z95.828 Active 831768076 Problem Pressure ulcer of other site, stage 3 L89.893 Active 618418198 Problem COPD (chronic obstructive pulmonary disease) J44.9 Active 00691369 Problem Type 2 diabetes mellitus wit h diabetic peripheral angiopathy without gangrene E11.51 Active 496539001 Problem Back pain M54.9 Active 916873378 Problem PAD (peripheral artery disease) I73.9 Active 464716956 Problem Lumbar radiculopathy, chronic M54.16 Active 458782311 Problem Recurrent major depressive disorder, in full remission F33.42 Active 019303113 Problem MCC current use of insulin Z79.4 Active 931499852 ALLERGIES No Information ENCOUNTERS Encounter Location Date Diagnosis [facility] [address] [facility] [id number] [address] [place] [id number] Nov, Back pain M54.9 [facility] [address] [facility] [id number] [address] [place] [phone] Nov, Anxiety F41.9 [facility] [address] [facility] [id number] [address] [place] [phone] Nov, [facility] [address] [facility] [id number] [address] [place] [phone] Oct, Back pain M54.9 [facility] [address] [id number] [address] [place] [phone] 07 Oct, 2018 [facility] [address] [id number] [address] [place] [phone] Oct, [facility] [address] [id number] [address] [place] [phone] Oct, [facility] [address] [id number] [address] [place] [phone] September, Back pain M54.9 [facility] [address] [id number] [address] [place] [phone] September, [facility] [address] [id number] [address] [place] [phone] September, [facility] [address] [id number] [address] [place] [phone] September, [facility] [address] [id number] [address] [place] [phone] Aug, Back pain M54.9 [facility] [address] [id number] [address] [place] [phone] Aug, Anxiety F41.9 [facility] [address] [id number] [address] [place] [phone] Aug, [facility] [address] [id number] [address] [place] [phone] Aug, Pressure ulcer of other site , stage 3 L89.893 and COPD (chronic obstructive pulmonary disease) J44.9 [facility] [address] [id number] [address] [place] [phone] Aug, History of smoking Z87.891 [facility] [address] [id number] [address] [place] [phone] Jul, Type 2 diabetes mellitus wit h diabetic peripheral angiopathy without gangrene E11.51 [facility] [address] [id number] [address] [place] [phone] Jul, Back pain M54.9 [facility] [address] [id number] [address] [place] [phone] Jul, Anxiety F41.9 [facility] [address] [id number] [address] [place] [phone] Jul, [facility] [address] [id number] [address] [place] [id number] 13 Jul, 2018 Back pain M54.9 [facility] [address] [id number] [address] [place] [id number] Jul, Back pain M54.9 [facility] [address] [facility] [id number] [address] [place] [phone] Jul, Lumbar radiculopathy, chroni c M54.16 ; Hypertension I10 and Type 2 diabetes mellitus with diabetic peripheral angiopathy without gangrene E11.51 [facility] [address] [id number] [address] [place] [phone] Jul, Back pain M54.9 [facility] [address] [facility] [id number] [address] [place] [phone] Jul, Back pain M54.9 and Anxiety F41.9 [facility] [address] [facility] [id number] [address] [place] [phone] Jul, [facility] [address] [id number] [address] [place] [phone] May, Back pain M54.9 and Anxiety F41.9 [facility] [address] [id number] [address] [place] [phone] May, [facility] [address] [facility] [id number] [address] [place] [phone] Apr, Radiculopathy of lumbar rhiannon on M54.16 ; Back pain M54.9 and Anxiety F41.9 [facility] [address] [id number] [address] [place] [phone] Apr, Diabetes E11.9 ; Muscle spas m M62.838 and Lumbar radiculopathy, chronic M54.16 [facility] [address] [id number] [address] [place] [phone] Apr, [facility] [address] [id number] [address] [place] [phone] Apr, [facility] [address] [id number] [address] [place] [phone] Mar, Back pain M54.9 and Anxiety F41.9 [facility] [address] [id number] [address] [place] [phone] Mar, [facility] [address] [facility] [id number] [address] [place] [phone] Mar, [facility] [address] [id number] [address] [place] [phone] Mar, [facility] [address] [facility] [id number] [address] [place] [phone] Mar, Encounter for immunization Z 23 [facility] [address] [facility] [id number] [address] [place] [phone] Feb, Back pain M54.9 and Anxiety F41.9 [facility] [address] [id number] [address] [place] [phone] Feb, Back pain M54.9 and Anxiety F41.9 [facility] [address] [id number] [address] [place] [phone] Jan, Back pain M54.9 and Anxiety F41.9 [facility] [address] [facility] [id number] [address] [place] [phone] Jan, [facility] [address] [facility] [id number] [address] [place] [phone] Dec, [facility] [address] [id number] [address] [place] [phone] Dec, Back pain M54.9 and Anxiety F41.9 [facility] [address] [facility] [id number] [address] [place] [phone] Dec, Diabetes E11.9 ; Type 2 diab etes mellitus with diabetic peripheral angiopathy without gangrene E11.51 ; Lumbar radiculopathy, chronic M54.16 ; COPD (chronic obstructive pulmonary disease) J44.9 and Anxiety F41.9 [facility] [address] [facility] [id number] [address] [place] [id number] Dec, Back pain M54.9 and Anxiety F41.9 [place] [address] [facility] [id number] [address] [place] [id number] Nov, Back pain M54.9 and Anxiety F41.9 [place] [address] [place] [id number] [address] [place] [phone] Oct, [facility] [address] [facility] [id number] [address] [place] [phone] Oct, Back pain M54.9 and Anxiety F41.9 [place] [address] [facility] [id number] [address] [place] [id number] September, Anxiety F41.9 and Back pain M54.9 [place] [address] [facility] [id number] [address] [place] [phone] September, Diabetes E11.9 ; Hypertensio n I10 ; COPD (chronic obstructive pulmonary disease) J44.9 and Lumbar radiculopathy, chronic M54.16 [facility] [address] [facility] [id number] [address] [place] [id number] September, Anxiety F41.9 [place] [address] [facility] [id number] [address] [place] [phone] Aug, [place] [address] [facility] [id number] [address] [place] [phone] Aug, [facility] [address] [id number] [address] [place] [phone] Aug, Anxiety F41.9 and Back pain M54.9 [place] [address] [facility] [id number] [address] [place] [phone] Aug, Medicare annual wellness vis it, initial Z00.00 ; COPD (chronic obstructive pulmonary disease) J44.9 ; PAD (peripheral artery disease) I73.9 ; Insulin long-term use Z79.4 ; Hypertension I10 ; Anxiety F41.9 ; Recurrent major depressive disorder, in full remission F33.42 ; Pressure ulcer of other site, stage 3 L89.893 ; Type 2 diabetes mellitus with diabetic peripheral angiopathy without gangrene E11.51 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.4 [place] [address] [facility] [id number] [address] [place] [id number] Jul, Back pain M54.9 [place] [address] [facility] [id number] [address] [place] [phone] Jul, [place] [address] [id number] [address] [place] [phone] Jul, Anxiety F41.9 and Back pain M54.9 [place] [address] [facility] [id number] [address] [place] [phone] Jul, Diabetes E11.9 [place] [address] [facility] [id number] [address] [place] [phone] May, [place] [address] [facility] [id number] [address] [place] [phone] May, Diabetes E11.9 ; Anxiety F41 .9 ; Back pain M54.9 and COPD (chronic obstructive pulmonary disease) J44.9 [place] [address] [facility] [id number] [address] [place] [id number] May, Back pain M54.9 [place] [address] [facility] [id number] [address] [place] [phone] May, [facility] [address] [id number] [address] [place] [phone] Apr, Back pain M54.9 [facility] [address] [id number] [address] [place] [phone] 30 Mar, 2017 Back pain M54.9 [facility] [address] [id number] [address] [place] [phone] Mar, [facility] [address] [id number] [address] [place] [id number] 16 Mar, 2017 [facility] [address] [id number] [address] [place] [phone] 14 Mar, 2017 Radiculopathy of lumbar rhiannon on M54.16 [facility] [address] [id number] [address] [place] [id number] 13 Mar, 2017 [facility] [address] [id number] [address] [place] [phone] 07 Mar, 2017 Encounter for immunization Z 23 and Lumbar radiculopathy, chronic M54.16 [facility] [address] [id number] [address] [place] [phone] Mar, Back pain M54.9 and Anxiety F41.9 [facility] [address] [id number] [address] [place] [id number] 10 Feb, 2017 Acute bilateral low back boy n with left-sided sciatica M54.42 and Acute bilateral low back pain with right-sided sciatica M54.41 [facility] [address] [id number] [address] [place] [id number] Feb, [facility] [address] [id number] [address] [place] [phone] Feb, Back pain M54.9 [facility] [address] [id number] [address] [place] [phone] 05 Jan, 2017 Back pain M54.9 and Anxiety F41.9 [facility] [address] [id number] [address] [place] [phone] 05 Jan, 2017 Diabetes E11.9 [facility] [address] [id number] [address] [place] [phone] Dec, Diabetes E11.9 ; Back pain M 54.9 ; Anxiety F41.9 and Insulin long- term use Z79.4 [facility] [address] [id number] [address] [place] [phone] Dec, Anxiety F41.9 [facility] [address] [id number] [address] [place] [phone] Dec, Back pain M54.9 [facility] [address] [id number] [address] [place] [id number] Nov, Back pain M54.9 [facility] [address] [id number] [address] [place] [id number] Oct, Back pain M54.9 and Anxiety F41.9 [facility] [address] [id number] [address] [place] [id number] September, Back pain M54.9 [facility] [address] [id number] [address] [place] [phone] September, Back pain M54.9 and Anxiety F41.9 [facility] [address] [facility] [id number] [address] [place] [id number] Aug, Diabetes E11.9 ; Anxiety F41 .9 ; Back pain M54.9 and PAD (peripheral artery disease) I73.9 [facility] [address] [id number] [address] [place] [phone] Aug, Anxiety F41.9 [facility] [address] [id number] [address] [place] [phone] Aug, Back pain M54.9 [facility] [address] [facility] [id number] [address] [place] [phone] Jul, Back pain M54.9 [facility] [address] [id number] [address] [place] [id number] Jul, Back pain M54.9 [facility] [address] [id number] [address] [place] [id number] 23 Jul, 2016 Back pain M54.9 [facility] [address] [id number] [address] [place] [id number] 16 Jul, 2016 Dorsalgia M54.9 [facility] [address] [id number] [address] [place] [phone] 14 Jul, 2016 [facility] [address] [id number] [address] [place] [phone] May, Back pain M54.9 [facility] [address] [facility] [id number] [address] [place] [id number] May, Diabetes E11.9 ; Anxiety F41 .9 ; Port catheter in place Z95.828 ; Encounter for immunization Z23 and Insulin long-term use Z79.4 [facility] [address] [id number] [address] [place] [phone] Apr, Back pain M54.9 [facility] [address] [id number] [address] [place] [id number] Apr, Back pain M54.9 [facility] [address] [id number] [address] [place] [phone] Apr, [facility] [address] [id number] [address] [place] [phone] Apr, Back pain M54.9 [facility] [address] [id number] [address] [place] [id number] Mar, COPD (chronic obstructive pu lmonary disease) J44.9 [facility] [address] [id number] [address] [place] [phone] Feb, [facility] [address] [id number] [address] [place] [phone] 30 Jan, 2016 [facility] [address] [id number] [address] [place] [phone] 20 Jan, 2016 [facility] [address] [id number] [address] [place] [id number] 07 Jan, 2016 [facility] [address] [id number] [address] [place] [id number] 02 Jan, 2016 [facility] [address] [id number] [address] [place] [id number] Dec, Diabetes E11.9 ; Hypoxia R09 .02 and Back pain M54.9 [facility] [address] [id number] [address] [place] [id number] Dec, [facility] [address] [id number] [address] [place] [phone] Nov, [facility] [address] [id number] [address] [place] [phone] Oct, Anxiety F41.9 [facility] [address] [id number] [address] [place] [phone] Oct, Back pain M54.9 [facility] [address] [id number] [address] [place] [phone] September, Back pain M54.9 [facility] [address] [id number] [address] [place] [phone] September, Diabetes E11.9 [facility] [address] [id number] [address] [place] [phone] September, [facility] [address] [id number] [address] [place] [phone] September, Diabetes E11.9 ; Insulin sarai g-term use Z79.4 and Back pain M54.9 [facility] [address] [id number] [address] [place] [phone] Aug, Back pain M54.9 [facility] [address] [id number] Aug, Back pain M54.9 ; Anxiety F4 1.9 and Arthropathy, unspecified M12.9 [facility] [address] [id number] Jul, Back pain M54.9 [facility] [address] [id number] Jul, Anxiety F41.9 [facility] [address] [id number] Jul, Back pain M54.9 [facility] [address] [id number] Jul, [facility] [address] [id number] Jul, [facility] [address] [id number] May, Back pain M54.9 ; Diabetes E 11.9 ; Insulin long-term use Z79.4 ; COPD (chronic obstructive pulmonary disease) J44.9 and Hypertension I10 [place] [address] [id number] May, Chronic pain G89.29 [place] [address] [id number] Apr, [place] [address] [id number] Apr, [facility] [address] [id number] Mar, [place] [address] [id number] Mar, Encounter for immunization Z 23 and Diabetes E11.9 [facility] [address] [id number] Feb, [facility] [address] [id number] [address] [place] [phone] Feb, [facility] [address] [id number] [address] [place] [address], [place] [address] Jan, [facility] [address] [id number] [address] [place] [address], [place] [address] Jan, [facility] [address] [id number] [address] [place] [address], [place] [address] Dec, [facility] [address] [id number] [address] [place] [id number] Dec, [facility] [address] [id number] [address] [place] [address], [place] [address] Dec, Unspecified arthropathy, sit e unspecified 716.90 and Diabetes mellitus type 2, uncontrolled 250.02 [facility] [address] [id number] [address] [place] [address], [place] [address] Dec, [facility] [address] [id number] [address] [place] [id number] Nov, [facility] [address] [id number] [address] [place] [phone] Oct, [facility] [address] [id number] [address] [place] [phone] September, [facility] [address] [id number] [address] [place] [phone] September, [facility] [address] [id number] [address] [place] [id number] September, [facility] [address] [id number] [address] [place] [phone] September, [facility] [address] [id number] [address] [place] [phone] Aug, [facility] [address] [id number] [address] [place] [phone] Aug, [facility] [address] [id number] [address] [place] [address], [place] [address] 18 Jul, 2014 [facility] [address] [id number] [address] [place] [address], [place] [address] 18 Jul, 2014 [facility] [address] [id number] [address] [place] [address], [place] [address] 16 Jul, 2014 [facility] [address] [id number] [address] [place] [address], [place] [address] 16 Jul, 2014 [facility] [address] [id number] [address] [place] [address], [place] [address] 16 Jul, 2014 [facility] [address] [id number] [address] [place] [address], [place] [address] 16 Jul, 2014 [facility] [address] [id number] [address] [place] [address], [place] [address] 16 Jul, 2014 [facility] [address] [id number] [address] [place] [address], [place] [address] 16 Jul, 2014 [facility] [address] [id number] [address] [place] [address], [place] [address] 16 Jul, 2014 [facility] [address] [id number] [address] [place] [address], [place] [address] 13 Jul, 2014 [facility] [address] [id number] [address] [place] [address], [place] [address] 13 Jul, 2014 [facility] [address] [id number] [address] [place] [address], [place] [address] 09 Jul, 2014 [facility] [address] [id number] [address] [place] [address], [place] [address] 09 Jul, 2014 [facility] [address] [id number] [address] [place] [address], [place] [address] 17 Jul, 2014 [facility] [address] [id number] [address] [place] [address], [place] [id number] 17 Jul, 2014 [facility] [address] [id number] [address] [place] [id number] 16 Jul, 2014 [facility] [address] [id number] [address] [place] [address], [place] [id number] 16 Jul, 2014 [facility] [address] [id number] [address] [place] [address], [place] [id number] 16 Jul, 2014 [facility] [address] [id number] [address] [place] [address], [place] [address] 16 Jul, 2014 [facility] [address] [id number] [address] [place] [address], [place] [id number] 16 Jul, 2014 [facility] [address] [id number] [address] [place] [address], [place] [address] 16 Jul, 2014 [facility] [address] [id number] [address] [place] [address], [place] [id number] 16 Jul, 2014 [facility] [address] [id number] [address] [place] [address], [place] [address] 16 Jul, 2014 [facility] [address] [id number] [address] [place] [address], [place] [address] 16 Jul, 2014 [facility] [address] [id number] [address] [place] [address], [place] [id number] 16 Jul, 2014 [facility] [address] [id number] [address] [place] [id number] 16 Jul, 2014 [facility] [address] [id number] [address] [place] [id number] Jul, 2014 [facility] [address] [id number] [address] [place] [address], [place] [id number] 16 Jul, 2014 [facility] [address] [id number] [address] [place] [address], [place] [id number] 16 Jul, 2014 [facility] [address] [id number] [address] [place] [id number] May, [facility] [address] [id number] [address] [place] [id number] May, [facility] [address] [id number] [address] [place] [address], [place] [address] May, [facility] [address] [id number] [address] [place] [address], [place] [address] May, [facility] [address] [id number] [address] [place] [address], [place] [address] May, [facility] [address] [id number] 35 [place] [address], [place] [address] May, [facility] [address] [id number] [address] [place] [address], [place] [address] May, [facility] [address] [id number] [address] [place] [address], [place] [address] May, [facility] [address] [id number] [address] [place] [address], [place] [address] May, [facility] [address] [id number] [address] [place] [address], [place] [address] May, [facility] [address] [id number] [address] [place] [address], [place] [address] Apr, [facility] [address] [id number] [address] [place] [address], [place] [address] Apr, [facility] [address] [id number] [address] [place] [address], [place] [address] Apr, [facility] [address] [id number] [address] [place] [address], [place] [address] Apr, [facility] [address] [id number] [address] [place] [address], [place] [address] Apr, [facility] [address] [id number] [address] [place] [address], [place] [address] Apr, [facility] [address] [id number] [address] [place] [address], [place] [address] Mar, [facility] [address] [id number] [address] [place] [address], [place] [address] Mar, [facility] [address] [id number] [address] [place] [address], [place] [address] Mar, [facility] [address] [id number] [address] [place] [address], [place] [address] Mar, [facility] [address] [id number] [address] [place] [address], [place] [address] Mar, [facility] [address] [id number] [address] [place] [address], [place] [address] Mar, [facility] [address] [id number] [address] [place] [address], [place] [address] Mar, [facility] [address] [id number] [address] [place] [address], [place] [address] Mar, [facility] [address] [id number] [address] [place] [address], [place] [address] Mar, [facility] [address] [id number] [address] [place] [address], [place] [address] Mar, [facility] [address] [id number] [address] [place] [address], [place] [address] Mar, [facility] [address] [id number] [address] [place] [address], [place] [address] Feb, [facility] [address] [id number] [address] [place] [address], [place] [address] 30 Feb, 2014 [facility] [address] [id number] [address] [place] [address], [place] [address] Feb, [facility] [address] [id number] [address] [place] [address], [place] [address] Feb, [facility] [address] [id number] [address] [place] [address], [place] [address] Feb, [facility] [address] [id number] [address] [place] [address], [place] [address] Feb, [facility] [address] [id number] [address] [place] [address], [place] [address] Feb, [facility] [address] [id number] [address] [place] [address], [place] [address] Feb, [facility] [address] [id number] [address] [place] [address], [place] [address] Feb, [facility] [address] [id number] [address] [place] [address], [place] [address] Feb, [facility] [address] [id number] [address] [place] [address], [place] [address] Jan, [facility] [address] [id number] [address] [place] [address], [place] [address] 22 Jan, 2014 [facility] [address] [id number] [address] [place] [address], [place] [address] 16 Jan, 2014 [facility] [address] [id number] [address] [place] [address], [place] [address] 16 Jan, 2014 [facility] [address] [id number] [address] [place] [address], [place] [address] Jan, [facility] [address] [id number] [address] [place] [address], [place] [address] Jan, [facility] [address] [id number] [address] [place] [address], [place] [address] Jan, [facility] [address] [id number] [address] [place] [address], [place] [address] Dec, [facility] [address] [id number] [address] [place] [address], [place] [address] Dec, [facility] [address] [id number] [address] [place] [address], [place] [address] Dec, [facility] [address] [id number] [address] [place] [address], [place] [address] Dec, [facility] [address] [id number] [address] [place] [address], [place] [address] Dec, [facility] [address] [id number] [address] [place] [address], [place] [address] Dec, [facility] [address] [id number] [address] [place] [address], [place] [address] Dec, [facility] [address] [id number] [address] [place] [address], [place] [address] Dec, [facility] [address] [id number] [address] [place] [address], [place] [address] Oct, [facility] [address] [id number] [address] [place] [address], [place] [address] Oct, [facility] [address] [id number] [address] [place] [address], [place] [address] September, [facility] [address] [id number] [address] [place] [address], [place] [address] September, [facility] [address] [id number] [address] [place] [address], [place] [address] September, [facility] [address] [id number] [address] [place] [address], [place] [address] September, [facility] [address] [id number] [address] [place] [address], [place] [address] September, [facility] [address] [id number] [address] [place] [address], [place] [address] September, [facility] [address] [id number] [address] [place] [address], [place] [address] September, [facility] [address] [id number] [address] [place] [address], [place] [address] Aug, [facility] [address] [id number] [address] [place] [address], [place] [address] Aug, [facility] [address] [id number] [address] [place] [address], [place] [address] Jul, [facility] [address] [id number] [address] [place] [address], [place] [address] 24 Jul, 2013 [facility] [address] [id number] [address] [place] [address], [place] [address] Jul, [facility] [address] [id number] [address] [place] [address], [place] [address] 17 Jul, 2013 [facility] [address] [id number] [address] [place] [address], [place] [address] 14 Jul, 2013 [facility] [address] [id number] [address] [place] [address], [place] [address] 14 Jul, 2013 [facility] [address] [id number] [address] [place] [address], [place] [address] Jul, [facility] [address] [id number] [address] [place] [address], [place] [address] Jul, [facility] [address] [id number] [address] [place] [address], [place] [address] 15 May, 2013 [facility] [address] [id number] [address] [place] [address], [place] [address] May, [facility] [address] [id number] [address] [place] [address], [place] [address] May, [facility] [address] [id number] [address] [place] [address], [place] [address] May, [facility] [address] [id number] [address] [place] [address], [place] [address] Apr, [facility] [address] [id number] [address] [place] [address], [place] [address] Mar, [facility] [address] [id number] [address] [place] [address], [place] [address] Mar, [facility] [address] [id number] [address] [place] [address], [place] [address] Mar, [facility] [address] [id number] [address] [place] [id number] Mar, [facility] [address] [id number] [address] [place] [address], [place] [address] Mar, [facility] [address] [id number] [address] [place] [id number] Mar, [facility] [address] [id number] [address] [place] [id number] Mar, [facility] [address] [id number] [address] [place] [id number] Mar, [facility] [address] [id number] [address] [place] [address], [place] [address] Mar, [facility] [address] [id number] [address] [place] [id number] Mar, [facility] [address] [id number] [address] [place] [address] Mar, [facility] [address] [id number] [address] [place] [id number] Mar, [facility] [address] [id number] [address] [place] [address] Feb, [facility] [address] [id number] [address] [place] [id number] Feb, [facility] [address] [id number] [address] [place] [address] Feb, [facility] [address] [id number] [address] [place] [id number] Feb, [facility] [address] [id number] [address] [place] [id number] Feb, [facility] [address] [id number] [address] [place] [address] Jan, [facility] [address] [id number] [address] [place] [id number] Dec, [facility] [address] [id number] [address] [place] [address], [place] [address] Dec, [facility] [address] [id number] [address] [place] [address], [place] [address] Dec, [facility] [address] [id number] [address] [place] [address], [place] [address] Nov, [facility] [address] [id number] [address] [place] [address], [place] [address] Nov, [facility] [address] [id number] [address] [place] [address], [place] [address] Nov, [facility] [address] [id number] [address] [place] [address], [place] [address] Oct, [facility] [address] [id number] [address] [place] [address], [place] [address] Oct, [facility] [address] [id number] [address] [place] [address], [place] [address] Oct, [facility] [address] [id number] [address] [place] [address], [place] [address] September, [facility] [address] [id number] [address] [place] [address], [place] [address] September, [facility] [address] [id number] [address] [place] [address], [place] [address] September, [facility] [address] [id number] [address] [place] [address], [place] [address] September, [facility] [address] [id number] [address] [place] [address], [place] [address] September, [facility] [address] [id number] [address] [place] [address], [place] [address] Aug, [facility] [address] [id number] [address] [place] [address], [place] [address] Aug, [facility] [address] [id number] [address] [place] [address], [place] [address] Aug, [facility] [address] [id number] [address] [place] [address], [place] [address] Jul, [facility] [address] [id number] [address] [place] [address], [place] [address] Jul, [facility] [address] [id number] [address] [place] [address], [place] [address] Jul, [facility] [address] [id number] [address] [place] [address], [place] [address] Jul, [facility] [address] [id number] [address] [place] [address], [place] [address] Jul, [facility] [address] [id number] [address] [place] [address], [place] [address] Jul, [facility] [address] [id number] [address] [place] [address], [place] [address] Jul, [facility] [address] [id number] [address] [place] [address], [place] [address] May, [facility] [address] [id number] [address] [place] [address], [place] [address] May, [facility] [address] [id number] [address] [place] [address], [place] [address] May, [facility] [address] [id number] [address] [place] [address], [place] [address] Apr, [facility] [address] [id number] [address] [place] [address], [place] [address] Apr, [facility] [address] [id number] [address] [place] [address], [place] [address] Apr, [facility] [address] [id number] [address] [place] [address], [place] [address] Apr, [facility] [address] [id number] [address] [place] [address], [place] [address] Apr, [facility] [address] [id number] [address] [place] [address], [place] [address] Mar, [facility] [address] [id number] [address] [place] [address], [place] [address] Mar, [facility] [address] [id number] [address] [place] [address], [place] [address] Mar, [facility] [address] [id number] [address] [place] [address], [place] [address] Mar, [facility] [address] [id number] [address] [place] [address], [place] [address] Feb, [facility] [address] [id number] [address] [place] [address], [place] [address] Feb, [facility] [address] [id number] [address] [place] [address], [place] [address] Feb, [facility] [address] [id number] [address] [place] [address], [place] [address] Feb, [facility] [address] [id number] [address] [place] [address], [place] [address] Feb, [facility] [address] [id number] [address] [place] [address], [place] [address] Jan, [facility] [address] [id number] [address] [place] [address], [place] [address] Dec, [facility] [address] [id number] [address] [place] [address], [place] [address] Dec, [facility] [address] [id number] [address] [place] [address], [place] [address] Dec, [facility] [address] [id number] [address] [place] [address], [place] [address] Nov, [facility] [address] [id number] [address] [place] [address], [place] [address] Nov, [facility] [address] [id number] [address] [place] [address], [place] [address] Nov, [facility] [address] [id number] [address] [place] [address], [place] [address] Oct, [facility] [address] [id number] [address] [place] [address], [place] [address] Oct, [facility] [address] [id number] [address] [place] [address], [place] [address] Oct, [facility] [address] [id number] [address] [place] [address], [place] [address] Oct, [facility] [address] [id number] [address] [place] [address], [place] [address] September, [facility] [address] [id number] [address] [place] [address], [place] [address] September, [facility] [address] [id number] [address] [place] [address], [place] [address] Aug, [facility] [address] [id number] [address] [place] [address], [place] [address] Aug, [facility] [address] [id number] [address] [place] [address], [place] [address] Aug, [facility] [address] [id number] [address] [place] [address], [place] [address] Aug, [facility] [address] [id number] [address] [place] [address], [place] [address] Aug, [facility] [address] [id number] [address] [place] [address], [place] [address] Aug, [facility] [address] [id number] [address] [place] [address], [place] [address] Aug, [facility] [address] [id number] [address] [place] [address], [place] [address] Jul, [facility] [address] [id number] [address] [place] [address], [place] [address] Jul, [facility] [address] [id number] [address] [place] [id number] Jul, [facility] [address] [id number] [address] [place] [id number] May, [facility] [address] [id number] [address] [place] [id number] May, [facility] [address] [id number] [address] [place] [phone] May, [facility] [address] [id number] [address] [place] [id number] Apr, [facility] [address] [id number] [address] [place] [phone] Apr, [facility] [address] [id number] [address] [place] [id number] Mar, [facility] [address] [id number] [address] [place] [id number] Mar, [facility] [address] [id number] [address] [place] [id number] Mar, [facility] [address] [id number] [address] [place] [phone] Mar, [facility] [address] [id number] [address] [place] [phone] Mar, [facility] [address] [id number] [address] [place] [id number] Mar, [facility] [address] [id number] [address] [place] [id number] Feb, [facility] [address] [id number] [address] [place] [id number] Feb, [facility] [address] [id number] [address] [place] [id number] Feb, IMMUNIZATIONS No Known Immunizations SOCIAL HISTORY [...]
--- OUTSIDE RECORDS SUMMARY | 2020-01-03 07:52 | XMS REPORT ---
Author Author Tra SILVERIO Organization [facility] Address [address] [place] [address] Care Team Providers Care Linoleum Installer Name Role Phone FERNY SILVERIO Unavailable PROBLEMS Type Condition ICD9-CM Code [id number] Code Onset Dates Condition S tatus SNOMED Code Problem Insulin long-term use Z79.4 Active 803277645 Problem Hypertension I10 Active 0343231 3 Problem Diabetes E11.9 Active 32257545 Problem Hypoxia R09.02 Active 807516238 Problem Anxiety F41.9 Active 53852279 Problem Port catheter in place Z95.828 Active 319404639 Problem Pressure ulcer of other site, stage 3 L89.893 Active 909900342 Problem COPD (chronic obstructive pulmonary disease) J44.9 Active 83919171 Problem Type 2 diabetes mellitus wit h diabetic peripheral angiopathy without gangrene E11.51 Active 322816917 Problem Back pain M54.9 Active 219368010 Problem PAD (peripheral artery disease) I73.9 Active 475995150 Problem Lumbar radiculopathy, chronic M54.16 Active 253519051 Problem Recurrent major depressive disorder, in full remission F33.42 Active 245961564 Problem 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.4 Active 090053790 ALLERGIES No Information ENCOUNTERS Encounter Location Date Diagnosis [facility] [address] [facility] [id number] [address] [place] [address] Nov, Back pain M54.9 [facility] [address] [facility] [id number] [address] [place] [address] Nov, Anxiety F41.9 [facility] [address] [facility] [id number] [address] [place] [address] Nov, [facility] [address] [facility] [id number] [address] [place] [address] Oct, Back pain M54.9 [facility] [address] [id number] [address] [place] [address] 07 Oct, 2018 [facility] [address] [id number] [address] [place] [address] Oct, [facility] [address] [id number] [address] [place] [address] Oct, [facility] [address] [id number] [address] [place] [address] September, Back pain M54.9 [facility] [address] [id number] [address] [place] [address] September, [facility] [address] [id number] [address] [place] [address] September, [facility] [address] [id number] [address] [place] [address] September, [facility] [address] [id number] [address] [place] [address] Aug, Back pain M54.9 [facility] [address] [id number] [address] [place] [address] Aug, Anxiety F41.9 [facility] [address] [id number] [address] [place] [address] Aug, [facility] [address] [id number] [address] [place] [address] Aug, Pressure ulcer of other site , stage 3 L89.893 and COPD (chronic obstructive pulmonary disease) J44.9 [facility] [address] [id number] [address] [place] [address] Aug, History of smoking Z87.891 [facility] [address] [id number] [address] [place] [address] Jul, Type 2 diabetes mellitus wit h diabetic peripheral angiopathy without gangrene E11.51 [facility] [address] [id number] [address] [place] [address] Jul, Back pain M54.9 [facility] [address] [id number] [address] [place] [address] Jul, Anxiety F41.9 [facility] [address] [id number] [address] [place] [id number] Jul, [facility] [address] [id number] [address] [place] [address] 13 Jul, 2018 Back pain M54.9 [facility] [address] [id number] [address] [place] [address] Jul, Back pain M54.9 [facility] [address] [facility] [id number] [address] [place] [address] Jul, Lumbar radiculopathy, chroni c M54.16 ; Hypertension I10 and Type 2 diabetes mellitus with diabetic peripheral angiopathy without gangrene E11.51 [facility] [address] [id number] [address] [place] [address] Jul, Back pain M54.9 [facility] [address] [facility] [id number] [address] [place] [address] Jul, Back pain M54.9 and Anxiety F41.9 [facility] [address] [facility] [id number] [address] [place] [address] Jul, [facility] [address] [id number] [address] [place] [address] May, Back pain M54.9 and Anxiety F41.9 [facility] [address] [id number] [address] [place] [address] May, [facility] [address] [facility] [id number] [address] [place] [address] Apr, Radiculopathy of lumbar hriannon on M54.16 ; Back pain M54.9 and Anxiety F41.9 [facility] [address] [id number] [address] [place] [address] Apr, Diabetes E11.9 ; Muscle spas m M62.838 and Lumbar radiculopathy, chronic M54.16 [facility] [address] [id number] [address] [place] [address] Apr, [facility] [address] [id number] [address] [place] [address] Apr, [facility] [address] [id number] [address] [place] [address] Mar, Back pain M54.9 and Anxiety F41.9 [facility] [address] [id number] [address] [place] [address] Mar, [facility] [address] [facility] [id number] [address] [place] [address] Mar, [facility] [address] [id number] [address] [place] [address] Mar, [facility] [address] [facility] [id number] [address] [place] [address] Mar, Encounter for immunization Z 23 [facility] [address] [facility] [id number] [address] [place] [address] Feb, Back pain M54.9 and Anxiety F41.9 [facility] [address] [id number] [address] [place] [address] Feb, Back pain M54.9 and Anxiety F41.9 [facility] [address] [id number] [address] [place] [address] Jan, Back pain M54.9 and Anxiety F41.9 [facility] [address] [facility] [id number] [address] [place] [address] Jan, [facility] [address] [facility] [id number] [address] [place] [address] Dec, [facility] [address] [id number] [address] [place] [address] Dec, Back pain M54.9 and Anxiety F41.9 [facility] [address] [facility] [id number] [address] [place] [address] Dec, Diabetes E11.9 ; Type 2 diab etes mellitus with diabetic peripheral angiopathy without gangrene E11.51 ; Lumbar radiculopathy, chronic M54.16 ; COPD (chronic obstructive pulmonary disease) J44.9 and Anxiety F41.9 [facility] [address] [facility] [id number] [address] [place] [address] Dec, Back pain M54.9 and Anxiety F41.9 [place] [address] [facility] [id number] [address] [place] [address] Nov, Back pain M54.9 and Anxiety F41.9 [place] [address] [place] [id number] [address] [place] [address] Oct, [facility] [address] [facility] [id number] [address] [place] [address] Oct, Back pain M54.9 and Anxiety F41.9 [place] [address] [facility] [id number] [address] [place] [address] September, Anxiety F41.9 and Back pain M54.9 [place] [address] [facility] [id number] [address] [place] [address] September, Diabetes E11.9 ; Hypertensio n I10 ; COPD (chronic obstructive pulmonary disease) J44.9 and Lumbar radiculopathy, chronic M54.16 [facility] [address] [facility] [id number] [address] [place] [address] September, Anxiety F41.9 [place] [address] [facility] [id number] [address] [place] [address] Aug, [place] [address] [facility] [id number] [address] [place] [address] Aug, [facility] [address] [id number] [address] [place] [address] Aug, Anxiety F41.9 and Back pain M54.9 [place] [address] [facility] [id number] [address] [place] [address] Aug, Medicare annual wellness vis it, initial [...] 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 [place] [address] [facility] [id number] [address] [place] [address] Jul, Back pain M54.9 [place] [address] [facility] [id number] [address] [place] [address] Jul, [place] [address] [id number] [address] [place] [address] Jul, Anxiety F41.9 and Back pain M54.9 [place] [address] [facility] [id number] [address] [place] [address] Jul, Diabetes E11.9 [place] [address] [facility] [id number] [address] [place] [address] May, [place] [address] [facility] [id number] [address] [place] [address] May, Diabetes E11.9 ; Anxiety F41 .9 ; Back pain M54.9 and COPD (chronic obstructive pulmonary disease) J44.9 [place] [address] [facility] [id number] [address] [place] [address] May, Back pain M54.9 [place] [address] [facility] [id number] [address] [place] [address] May, [facility] [address] [id number] [address] [place] [address] Apr, Back pain M54.9 [facility] [address] [id number] [address] [place] [address] 30 Mar, 2017 Back pain M54.9 [facility] [address] [id number] [address] [place] [address] Mar, [facility] [address] [id number] [address] [place] [address] 16 Mar, 2017 [facility] [address] [id number] [address] [place] [address] 14 Mar, 2017 Radiculopathy of lumbar rhiannon on M54.16 [facility] [address] [id number] [address] [place] [address] 13 Mar, 2017 [facility] [address] [id number] [address] [place] [address] 07 Mar, 2017 Encounter for immunization Z 23 and Lumbar radiculopathy, chronic M54.16 [facility] [address] [id number] [address] [place] [address] Mar, Back pain M54.9 and Anxiety F41.9 [facility] [address] [id number] [address] [place] [address] 10 Feb, 2017 Acute bilateral low back boy n with left-sided sciatica M54.42 and Acute bilateral low back pain with right-sided sciatica M54.41 [facility] [address] [id number] [address] [place] [address] Feb, [facility] [address] [id number] [address] [place] [address] Feb, Back pain M54.9 [facility] [address] [id number] [address] [place] [phone] 05 Jan, 2017 Back pain M54.9 and Anxiety F41.9 [facility] [address] [id number] [address] [place] [address] 05 Jan, 2017 Diabetes E11.9 [facility] [address] [id number] [address] [place] [address] Dec, Diabetes E11.9 ; Back pain M 54.9 ; Anxiety F41.9 and Insulin long- term use Z79.4 [facility] [address] [id number] [address] [place] [address] Dec, Anxiety F41.9 [facility] [address] [id number] [address] [place] [address] Dec, Back pain M54.9 [facility] [address] [id number] [address] [place] [address] Nov, Back pain M54.9 [facility] [address] [id number] [address] [place] [address] Oct, Back pain M54.9 and Anxiety F41.9 [facility] [address] [id number] [address] [place] [address] September, Back pain M54.9 [facility] [address] [id number] [address] [place] [address] September, Back pain M54.9 and Anxiety F41.9 [facility] [address] [facility] [id number] [address] [place] [address] Aug, Diabetes E11.9 ; Anxiety F41 .9 ; Back pain M54.9 and PAD (peripheral artery disease) I73.9 [facility] [address] [id number] [address] [place] [address] Aug, Anxiety F41.9 [facility] [address] [id number] [address] [place] [address] Aug, Back pain M54.9 [facility] [address] [facility] [id number] [address] [place] [address] Jul, Back pain M54.9 [facility] [address] [id number] [address] [place] [address] Jul, Back pain M54.9 [facility] [address] [id number] [address] [place] [address] 23 Jul, 2016 Back pain M54.9 [facility] [address] [id number] [address] [place] [id number] 16 Jul, 2016 Dorsalgia M54.9 [facility] [address] [id number] [address] [place] [address] 14 Jul, 2016 [facility] [address] [id number] [address] [place] [address] May, Back pain M54.9 [facility] [address] [facility] [id number] [address] [place] [address] May, Diabetes E11.9 ; Anxiety F41 .9 ; Port catheter in place Z95.828 ; Encounter for immunization Z23 and Insulin long-term use Z79.4 [facility] [address] [id number] [address] [place] [address] Apr, Back pain M54.9 [facility] [address] [id number] [address] [place] [address] Apr, Back pain M54.9 [facility] [address] [id number] [address] [place] [address] Apr, [facility] [address] [id number] [address] [place] [address] Apr, Back pain M54.9 [facility] [address] [id number] [address] [place] [address] Mar, COPD (chronic obstructive pu lmonary disease) J44.9 [facility] [address] [id number] [address] [place] [address] Feb, [facility] [address] [id number] [address] [place] [address] 30 Jan, 2016 [facility] [address] [id number] [address] [place] [id number] 20 Jan, 2016 [facility] [address] [id number] [address] [place] [address] 07 Jan, 2016 [facility] [address] [id number] [address] [place] [address] 02 Jan, 2016 [facility] [address] [id number] [address] [place] [address] Dec, Diabetes E11.9 ; Hypoxia R09 .02 and Back pain M54.9 [facility] [address] [id number] [address] [place] [address] Dec, [facility] [address] [id number] [address] [place] [address] Nov, [facility] [address] [id number] [address] [place] [address] Oct, Anxiety F41.9 [facility] [address] [id number] [address] [place] [address] Oct, Back pain M54.9 [facility] [address] [id number] [address] [place] [address] September, Back pain M54.9 [facility] [address] [id number] [address] [place] [address] September, Diabetes E11.9 [facility] [address] [id number] [address] [place] [address] September, [facility] [address] [id number] [address] [place] [address] September, Diabetes E11.9 ; Insulin sarai g-term use Z79.4 and Back pain M54.9 [facility] [address] [id number] [address] [place] [address] Aug, Back pain M54.9 [facility] [address] [address] Aug, Back pain M54.9 ; Anxiety F4 1.9 and Arthropathy, unspecified M12.9 [facility] [address] [id number] Jul, Back pain M54.9 [facility] [address] [address] Jul, Anxiety F41.9 [facility] [address] [address] Jul, Back pain M54.9 [facility] [address] [address] Jul, [facility] [address] [address] Jul, [facility] [address] [address] May, Back pain M54.9 ; Diabetes E 11.9 ; Insulin long-term use Z79.4 ; COPD (chronic obstructive pulmonary disease) J44.9 and Hypertension I10 [place] [address] [address] May, Chronic pain G89.29 [place] [address] [address] Apr, [place] [address] [address] Apr, [facility] [address] [id number] Mar, [place] [address] [address] Mar, Encounter for immunization Z 23 and Diabetes E11.9 [facility] [address] [address] Feb, [facility] [address] [id number] [address] [place] [address] Feb, [facility] [address] [id number] [address] [place] [address], [place] [address] Jan, [facility] [address] [id number] [address] [place] [address], [place] [address] Jan, [facility] [address] [id number] [address] [place] [address], [place] [address] Dec, [facility] [address] [id number] [address] [place] [address] Dec, [facility] [address] [id number] [address] [place] [address], [place] [address] Dec, Unspecified arthropathy, sit e unspecified 716.90 and Diabetes mellitus type 2, uncontrolled 250.02 [facility] [address] [id number] [address] [place] [address], [place] [address] Dec, [facility] [address] [id number] [address] [place] [address] Nov, [facility] [address] [id number] [address] [place] [address] Oct, [facility] [address] [id number] [address] [place] [address] September, [facility] [address] [id number] [address] [place] [address] September, [facility] [address] [id number] [address] [place] [address] September, [facility] [address] [id number] [address] [place] [address] September, [facility] [address] [id number] [address] [place] [address] Aug, [facility] [address] [id number] [address] [place] [address] Aug, [facility] [address] [id number] [address] [place] [address], [place] [address] 18 Jul, 2014 [facility] [address] [id number] [address] [place] [address], [place] [address] 18 Jul, 2014 [facility] [address] [id number] [address] [place] [address], [place] [address] 16 Jul, 2014 [facility] [address] [id number] [address] [place] [address], [place] [address] 16 Jul, 2014 [facility] [address] [id number] [address] [place] [address], [place] [address] 16 Jul, 2014 [facility] [address] [id number] [address] [place] [address], [place] [address] 16 Jul, 2014 [facility] [address] [id number] [address] [place] [address], [place] [address] 16 Jul, 2014 [facility] [address] [id number] [address] [place] [address], [place] [address] 16 Jul, 2014 [facility] [address] [id number] [address] [place] [address], [place] [address] 16 Jul, 2014 [facility] [address] [id number] [address] [place] [address], [place] [address] 13 Jul, 2014 [facility] [address] [id number] [address] [place] [address], [place] [address] 13 Jul, 2014 [facility] [address] [id number] [address] [place] [address], [place] [address] 09 Jul, 2014 [facility] [address] [id number] [address] [place] [address], [place] [address] 09 Jul, 2014 [facility] [address] [id number] [address] [place] [address], [place] [address] 17 Jul, 2014 [facility] [address] [id number] [address] [place] [address], [place] [address] 17 Jul, 2014 [facility] [address] [id number] [address] [place] [id number] 16 Jul, 2014 [facility] [address] [id number] [address] [place] [address], [place] [address] 16 Jul, 2014 [facility] [address] [id number] [address] [place] [address], [place] [address] 16 Jul, 2014 [facility] [address] [id number] [address] [place] [address], [place] [address] 16 Jul, 2014 [facility] [address] [id number] [address] [place] [address], [place] [address] 16 Jul, 2014 [facility] [address] [id number] [address] [place] [address], [place] [address] 16 Jul, 2014 [facility] [address] [id number] [address] [place] [address], [place] [address] 16 Jul, 2014 [facility] [address] [id number] [address] [place] [address], [place] [address] 16 Jul, 2014 [facility] [address] [id number] [address] [place] [address], [place] [address] 16 Jul, 2014 [facility] [address] [id number] [address] [place] [address], [place] [id number] 16 Jul, 2014 [facility] [address] [id number] [address] [place] [address] 16 Jul, 2014 [facility] [address] [id number] [address] [place] [address] Jul, 2014 [facility] [address] [id number] [address] [place] [address], [place] [address] 16 Jul, 2014 [facility] [address] [id number] [address] [place] [address], [place] [address] 16 Jul, 2014 [facility] [address] [id number] [address] [place] [address] May, [facility] [address] [id number] [address] [place] [address] May, [facility] [address] [id number] [address] [place] [address], [place] [address] May, [facility] [address] [id number] [address] [place] [address], [place] [address] May, [facility] [address] [id number] [address] [place] [address], [place] [address] May, [facility] [address] [id number] [address] [place] [address], [place] [address] May, [facility] [address] [id number] [address] [place] [address], [place] [address] May, [facility] [address] [id number] [address] [place] [address], [place] [address] May, [facility] [address] [id number] [address] [place] [address], [place] [address] May, [facility] [address] [id number] [address] [place] [address], [place] [address] May, [facility] [address] [id number] [address] [place] [address], [place] [address] Apr, [facility] [address] [id number] [address] [place] [address], [place] [address] Apr, [facility] [address] [id number] [address] [place] [address], [place] [address] Apr, [facility] [address] [id number] [address] [place] [address], [place] [address] Apr, [facility] [address] [id number] [address] [place] [address], [place] [address] Apr, [facility] [address] [id number] [address] [place] [address], [place] [address] Apr, [facility] [address] [id number] [address] [place] [address], [place] [address] Mar, [facility] [address] [id number] [address] [place] [address], [place] [address] Mar, [facility] [address] [id number] [address] [place] [address], [place] [address] Mar, [facility] [address] [id number] [address] [place] [address], [place] [address] Mar, [facility] [address] [id number] [address] [place] [address], [place] [address] Mar, [facility] [address] [id number] [address] [place] [address], [place] [address] Mar, [facility] [address] [id number] [address] [place] [address], [place] [address] Mar, [facility] [address] [id number] [address] [place] [address], [place] [address] Mar, [facility] [address] [id number] [address] [place] [address], [place] [address] Mar, [facility] [address] [id number] [address] [place] [address], [place] [address] Mar, [facility] [address] [id number] [address] [place] [address], [place] [address] Mar, [facility] [address] [id number] [address] [place] [address], [place] [address] Feb, [facility] [address] [id number] [address] [place] [address], [place] [address] 30 Feb, 2014 [facility] [address] [id number] [address] [place] [address], [place] [address] Feb, [facility] [address] [id number] [address] [place] [address], [place] [address] Feb, [facility] [address] [id number] [address] [place] [address], [place] [address] Feb, [facility] [address] [id number] [address] [place] [address], [place] [address] Feb, [facility] [address] [id number] [address] [place] [address], [place] [address] Feb, [facility] [address] [id number] [address] [place] [address], [place] [address] Feb, [facility] [address] [id number] [address] [place] [address], [place] [address] Feb, [facility] [address] [id number] [address] [place] [address], [place] [address] Feb, [facility] [address] [id number] [address] [place] [address], [place] [address] Jan, [facility] [address] [id number] [address] [place] [address], [place] [address] 22 Jan, 2014 [facility] [address] [id number] [address] [place] [address], [place] [address] 16 Jan, 2014 [facility] [address] [id number] [address] [place] [address], [place] [address] 16 Jan, 2014 [facility] [address] [id number] [address] [place] [address], [place] [address] Jan, [facility] [address] [id number] [address] [place] [address], [place] [address] Jan, [facility] [address] [id number] [address] [place] [address], [place] [address] Jan, [facility] [address] [id number] [address] [place] [address], [place] [address] Dec, [facility] [address] [id number] [address] [place] [address], [place] [address] Dec, [facility] [address] [id number] [address] [place] [address], [place] [address] Dec, [facility] [address] [id number] [address] [place] [address], [place] [address] Dec, [facility] [address] [id number] [address] [place] [address], [place] [address] Dec, [facility] [address] [id number] [address] [place] [address], [place] [address] Dec, [facility] [address] [id number] [address] [place] [address], [place] [address] Dec, [facility] [address] [id number] [address] [place] [address], [place] [address] Dec, [facility] [address] [id number] [address] [place] [address], [place] [address] Oct, [facility] [address] [id number] [address] [place] [address], [place] [address] Oct, [facility] [address] [id number] [address] [place] [address], [place] [address] September, [facility] [address] [id number] [address] [place] [address], [place] [address] September, [facility] [address] [id number] [address] [place] [address], [place] [address] September, [facility] [address] [id number] [address] [place] [address], [place] [address] September, [facility] [address] [id number] [address] [place] [address], [place] [address] September, [facility] [address] [id number] [address] [place] [address], [place] [address] September, [facility] [address] [id number] [address] [place] [address], [place] [address] September, [facility] [address] [id number] [address] [place] [address], [place] [address] Aug, [facility] [address] [id number] [address] [place] [address], [place] [address] Aug, [facility] [address] [id number] [address] [place] [address], [place] [address] Jul, [facility] [address] [id number] [address] [place] [address], [place] [address] 24 Jul, 2013 [facility] [address] [id number] [address] [place] [address], [place] [address] Jul, [facility] [address] [id number] [address] [place] [address], [place] [address] 17 Jul, 2013 [facility] [address] [id number] [address] [place] [address], [place] [address] 14 Jul, 2013 [facility] [address] [id number] [address] [place] [address], [place] [address] 14 Jul, 2013 [facility] [address] [id number] [address] [place] [address], [place] [address] Jul, [facility] [address] [id number] [address] [place] [address], [place] [address] Jul, [facility] [address] [id number] [address] [place] [address], [place] [address] 15 May, 2013 [facility] [address] [id number] [address] [place] [address], [place] [address] May, [facility] [address] [id number] [address] [place] [address], [place] [address] May, [facility] [address] [id number] [address] [place] [address], [place] [address] May, [facility] [address] [id number] [address] [place] [address], [place] [address] Apr, [facility] [address] [id number] [address] [place] [address], [place] [address] Mar, [facility] [address] [id number] [address] [place] [address], [place] [address] Mar, [facility] [address] [id number] [address] [place] [address], [place] [address] Mar, [facility] [address] [id number] [address] [place] [address] Mar, [facility] [address] [id number] [address] [place] [address], [place] [address] Mar, [facility] [address] [id number] [address] [place] [address] Mar, [facility] [address] [id number] [address] [place] [address] Mar, [facility] [address] [id number] [address] [place] [address] Mar, [facility] [address] [id number] [address] [place] [address], [place] [address] Mar, [facility] [address] [id number] [address] [place] [address] Mar, [facility] [address] [id number] [address] [place] [address] Mar, [facility] [address] [id number] [address] [place] [address] Mar, [facility] [address] [id number] [address] [place] [address] Feb, [facility] [address] [id number] [address] [place] [address] Feb, [facility] [address] [id number] [address] [place] [address] Feb, [facility] [address] [id number] [address] [place] [address] Feb, [facility] [address] [id number] [address] [place] [address] Feb, [facility] [address] [id number] [address] [place] [address] Jan, [facility] [address] [id number] [address] [place] [address] Dec, [facility] [address] [id number] [address] [place] [address], [place] [address] Dec, [facility] [address] [id number] [address] [place] [address], [place] [address] Dec, [facility] [address] [id number] [address] [place] [address], [place] [address] Nov, [facility] [address] [id number] [address] [place] [address], [place] [address] Nov, [facility] [address] [id number] [address] [place] [address], [place] [address] Nov, [facility] [address] [id number] [address] [place] [address], [place] [address] Oct, [facility] [address] [id number] [address] [place] [address], [place] [address] Oct, [facility] [address] [id number] [address] [place] [address], [place] [address] Oct, [facility] [address] [id number] [address] [place] [address], [place] [address] September, [facility] [address] [id number] [address] [place] [address], [place] [address] September, [facility] [address] [id number] [address] [place] [address], [place] [address] September, [facility] [address] [id number] [address] [place] [address], [place] [address] September, [facility] [address] [id number] [address] [place] [address], [place] [address] September, [facility] [address] [id number] [address] [place] [address], [place] [address] Aug, [facility] [address] [id number] [address] [place] [address], [place] [address] Aug, [facility] [address] [id number] [address] [place] [address], [place] [address] Aug, [facility] [address] [id number] [address] [place] [address], [place] [address] Jul, [facility] [address] [id number] [address] [place] [address], [place] [address] Jul, [facility] [address] [id number] [address] [place] [address], [place] [address] Jul, [facility] [address] [id number] [address] [place] [address], [place] [address] Jul, [facility] [address] [id number] [address] [place] [address], [place] [address] Jul, [facility] [address] [id number] [address] [place] [address], [place] [address] Jul, [facility] [address] [id number] [address] [place] [address], [place] [address] Jul, [facility] [address] [id number] [address] [place] [address], [place] [address] May, [facility] [address] [id number] [address] [place] [address], [place] [address] May, [facility] [address] [id number] [address] [place] [address], [place] [address] May, [facility] [address] [id number] [address] [place] [address], [place] [address] Apr, [facility] [address] [id number] [address] [place] [address], [place] [address] Apr, [facility] [address] [id number] [address] [place] [address], [place] [address] Apr, [facility] [address] [id number] [address] [place] [address], [place] [address] Apr, [facility] [address] [id number] [address] [place] [address], [place] [address] Apr, [facility] [address] [id number] [address] [place] [address], [place] [address] Mar, [facility] [address] [id number] [address] [place] [address], [place] [address] Mar, [facility] [address] [id number] [address] [place] [address], [place] [address] Mar, [facility] [address] [id number] [address] [place] [address], [place] [address] Mar, [facility] [address] [id number] [address] [place] [address], [place] [address] Feb, [facility] [address] [id number] [address] [place] [address], [place] [address] Feb, [facility] [address] [id number] [address] [place] [address], [place] [address] Feb, [facility] [address] [id number] [address] [place] [address], [place] [address] Feb, [facility] [address] [id number] [address] [place] [address], [place] [address] Feb, [facility] [address] [id number] [address] [place] [address], [place] [address] Jan, [facility] [address] [id number] [address] [place] [address], [place] [address] Dec, [facility] [address] [id number] [address] [place] [address], [place] [address] Dec, [facility] [address] [id number] [address] [place] [address], [place] [address] Dec, [facility] [address] [id number] [address] [place] [address], [place] [address] Nov, [facility] [address] [id number] [address] [place] [address], [place] [address] Nov, [facility] [address] [id number] [address] [place] [address], [place] [address] Nov, [facility] [address] [id number] [address] [place] [address], [place] [address] Oct, [facility] [address] [id number] [address] [place] [address], [place] [address] Oct, [facility] [address] [id number] [address] [place] [address], [place] [address] Oct, [facility] [address] [id number] [address] [place] [address], [place] [address] Oct, [facility] [address] [id number] [address] [place] [address], [place] [address] September, [facility] [address] [id number] [address] [place] [address], [place] [address] September, [facility] [address] [id number] [address] [place] [address], [place] [address] Aug, [facility] [address] [id number] [address] [place] [address], [place] [address] Aug, [facility] [address] [id number] [address] [place] [address], [place] [address] Aug, [facility] [address] [id number] [address] [place] [address], [place] [address] Aug, [facility] [address] [id number] [address] [place] [address], [place] [address] Aug, [facility] [address] [id number] [address] [place] [address], [place] [address] Aug, [facility] [address] [id number] [address] [place] [address], [place] [address] Aug, [facility] [address] [id number] [address] [place] [address], [place] [address] Jul, [facility] [address] [id number] [address] [place] [address], [place] [address] Jul, [facility] [address] [id number] [address] [place] [id number] Jul, [facility] [address] [id number] [address] [place] [id number] May, [facility] [address] [id number] [address] [place] [id number] May, [facility] [address] [id number] [address] [place] [id number] May, [facility] [address] [id number] [address] [place] [id number] Apr, [facility] [address] [id number] [address] [place] [id number] Apr, [facility] [address] [id number] [address] [place] [id number] Mar, [facility] [address] [id number] [address] [place] [id number] Mar, [facility] [address] [id number] [address] [place] [id number] Mar, [facility] [address] [id number] [address] [place] [id number] Mar, [facility] [address] [id number] [address] [place] [id number] Mar, [facility] [address] [id number] [address] [place] [id number] Mar, [facility] [address] [id number] [address] [place] [id number] Feb, [facility] [address] [id number] [address] [place] [id number] Feb, [facility] [address] [id number] [address] [place] [id number] Feb, IMMUNIZATIONS No Known Immunizations SOCIAL HISTORY [...]
--- OUTSIDE RECORDS SUMMARY | 2020-01-03 07:52 | XMS REPORT ---
Author Author Tra SILVERIO Organization [facility] Address [address] [place] [address] Care Team Providers Care Furnace Helper Name Role Phone FERNY SILVERIO Unavailable PROBLEMS Type Condition ICD9-CM Code MOH70-TJ Code Onset Dates Condition S tatus SNOMED Code Problem Insulin long-term use Z79.4 Active 466008316 Problem Hypertension I10 Active 9346737 3 Problem Diabetes E11.9 Active 57949224 Problem Hypoxia R09.02 Active 842368018 Problem Anxiety F41.9 Active 73805442 Problem Port catheter in place Z95.828 Active 966896820 Problem Pressure ulcer of other site, stage 3 L89.893 Active 806020040 Problem COPD (chronic obstructive pulmonary disease) J44.9 Active 44303967 Problem Type 2 diabetes mellitus wit h diabetic peripheral angiopathy without gangrene E11.51 Active 483824088 Problem Back pain M54.9 Active 691588621 Problem PAD (peripheral artery disease) I73.9 Active 287986695 Problem Lumbar radiculopathy, chronic M54.16 Active 530042955 Problem Recurrent major depressive disorder, in full remission F33.42 Active 619933068 Problem [facility]FP current use of insulin Z79.4 Active 204751378 ALLERGIES No Information ENCOUNTERS Encounter Location Date Diagnosis [facility] [address] [facility] [id number] [place] [phone] Nov, Back pain M54.9 [facility] [address] [facility] [id number] [place] [phone] Nov, Anxiety F41.9 [facility] [address] [facility] [id number] [place] [phone] Nov, [facility] [address] [facility] [id number] [place] [id number] Oct, Back pain M54.9 [facility] [address] [id number] [address] [place] [phone] 07 Oct, 2018 [facility] [address] [id number] [address] [place] [phone] Oct, [facility] [address] [id number] [address] [place] [phone] Oct, [facility] [address] [id number] [address] [place] [address] September, Back pain M54.9 [facility] [address] [id number] [address] [place] [phone] September, [facility] [address] [id number] [address] [place] [phone] September, [facility] [address] [id number] [address] [place] [phone] September, [facility] [address] [id number] [address] [place] [id number] Aug, Back pain M54.9 [facility] [address] [id number] [address] [place] [address] Aug, Anxiety F41.9 [facility] [address] [id number] [address] [place] [phone] Aug, [facility] [address] [id number] [address] [place] [address] Aug, Pressure ulcer of other site , stage 3 L89.893 and COPD (chronic obstructive pulmonary disease) J44.9 [facility] [address] [id number] [address] [place] [phone] Aug, History of smoking Z87.891 [facility] [address] [id number] [address] [place] [phone] Jul, Type 2 diabetes mellitus wit h diabetic peripheral angiopathy without gangrene E11.51 [facility] [address] [id number] [address] [place] [phone] Jul, Back pain M54.9 [facility] [address] [id number] [address] [place] [address] Jul, Anxiety F41.9 [facility] [address] [id number] [address] [place] [phone] Jul, [facility] [address] [id number] [address] [place] [id number] 13 Jul, 2018 Back pain M54.9 [facility] [address] [id number] [address] [place] [phone] Jul, Back pain M54.9 [facility] [address] [facility] [id number] [place] [address] Jul, Lumbar radiculopathy, chroni c M54.16 ; Hypertension I10 and Type 2 diabetes mellitus with diabetic peripheral angiopathy without gangrene E11.51 [facility] [address] [id number] [address] [place] [address] Jul, Back pain M54.9 [facility] [address] [facility] [id number] [place] [address] Jul, Back pain M54.9 and Anxiety F41.9 [facility] [address] [facility] [id number] [place] [address] Jul, [facility] [address] [id number] [address] [place] [address] May, Back pain M54.9 and Anxiety F41.9 [facility] [address] [id number] [address] [place] [address] May, [facility] [address] [facility] [id number] [place] [phone] Apr, Radiculopathy of lumbar rhiannon on M54.16 ; Back pain M54.9 and Anxiety F41.9 [facility] [address] [id number] [address] [place] [address] Apr, Diabetes E11.9 ; Muscle spas m M62.838 and Lumbar radiculopathy, chronic M54.16 [facility] [address] [id number] [address] [place] [address] Apr, [facility] [address] [id number] [address] [place] [address] Apr, [facility] [address] [id number] [address] [place] [address] Mar, Back pain M54.9 and Anxiety F41.9 [facility] [address] [id number] [address] [place] [phone] Mar, [facility] [address] [facility] [id number] [place] [phone] Mar, [facility] [address] [id number] [address] [place] [address] Mar, [facility] [address] [facility] [id number] [place] [phone] Mar, Encounter for immunization Z 23 [facility] [address] [facility] [id number] [place] [phone] Feb, Back pain M54.9 and Anxiety F41.9 [facility] [address] [id number] [address] [place] [address] Feb, Back pain M54.9 and Anxiety F41.9 [facility] [address] [id number] [address] [place] [address] Jan, Back pain M54.9 and Anxiety F41.9 [facility] [address] [facility] [id number] [place] [phone] Jan, [facility] [address] [facility] [id number] [place] [phone] Dec, [facility] [address] [id number] [address] [place] [address] Dec, Back pain M54.9 and Anxiety F41.9 [facility] [address] [facility] [id number] [place] [address] Dec, Diabetes E11.9 ; Type 2 diab etes mellitus with diabetic peripheral angiopathy without gangrene E11.51 ; Lumbar radiculopathy, chronic M54.16 ; COPD (chronic obstructive pulmonary disease) J44.9 and Anxiety F41.9 [facility] [address] [facility] [id number] [place] [address] Dec, Back pain M54.9 and Anxiety F41.9 [facility] [address] [facility] [id number] [place] [phone] Nov, Back pain M54.9 and Anxiety F41.9 [facility] [address] [place] [id number] [address] [place] [phone] Oct, [facility] [address] [facility] [id number] [place] [phone] Oct, Back pain M54.9 and Anxiety F41.9 [facility] [address] [facility] [id number] [place] [address] September, Anxiety F41.9 and Back pain M54.9 [facility] [address] [facility] [id number] [place] [phone] September, Diabetes E11.9 ; Hypertensio n I10 ; COPD (chronic obstructive pulmonary disease) J44.9 and Lumbar radiculopathy, chronic M54.16 [facility] [address] [facility] [id number] [place] [id number] September, Anxiety F41.9 [facility] [address] [facility] [id number] [place] [phone] Aug, [facility] [address] [facility] [id number] [place] [phone] Aug, [facility] [address] [id number] [address] [place] [address] Aug, Anxiety F41.9 and Back pain M54.9 [facility] [address] [facility] [id number] [place] [address] Aug, Medicare annual wellness vis it, initial [...] 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 [facility] [address] [facility] [id number] [place] [address] Jul, Back pain M54.9 [facility] [address] [facility] [id number] [place] [address] Jul, [facility] [address] [id number] [address] [place] [address] Jul, Anxiety F41.9 and Back pain M54.9 [facility] [address] [facility] [id number] [place] [address] Jul, Diabetes E11.9 [facility] [address] [facility] [id number] [place] [address] May, [facility] [address] [facility] [id number] [place] [address] May, Diabetes E11.9 ; Anxiety F41 .9 ; Back pain M54.9 and COPD (chronic obstructive pulmonary disease) J44.9 [facility] [address] [facility] [id number] [place] [phone] May, Back pain M54.9 [facility] [address] [facility] [id number] [place] [address] May, [facility] [address] [id number] [address] [place] [address] Apr, Back pain M54.9 [facility] [address] [id number] [address] [place] [address] 30 Mar, 2017 Back pain M54.9 [facility] [address] [id number] [address] [place] [phone] Mar, [facility] [address] [id number] [address] [place] [address] 16 Mar, 2017 [facility] [address] [id number] [address] [place] [phone] 14 Mar, 2017 Radiculopathy of lumbar rhiannon on M54.16 [facility] [address] [id number] [address] [place] [address] 13 Mar, 2017 [facility] [address] [id number] [address] [place] [phone] 07 Mar, 2017 Encounter for immunization Z 23 and Lumbar radiculopathy, chronic M54.16 [facility] [address] [id number] [address] [place] [phone] Mar, Back pain M54.9 and Anxiety F41.9 [facility] [address] [id number] [address] [place] [address] 10 Feb, 2017 Acute bilateral low back boy n with left-sided sciatica M54.42 and Acute bilateral low back pain with right-sided sciatica M54.41 [facility] [address] [id number] [address] [place] [phone] Feb, [facility] [address] [id number] [address] [place] [address] Feb, Back pain M54.9 [facility] [address] [id number] [address] [place] [phone] 05 Jan, 2017 Back pain M54.9 and Anxiety F41.9 [facility] [address] [id number] [address] [place] [phone] 05 Jan, 2017 Diabetes E11.9 [facility] [address] [id number] [address] [place] [phone] Dec, Diabetes E11.9 ; Back pain M 54.9 ; Anxiety F41.9 and Insulin long- term use Z79.4 [facility] [address] [id number] [address] [place] [address] Dec, Anxiety F41.9 [facility] [address] [id number] [address] [place] [phone] Dec, Back pain M54.9 [facility] [address] [id number] [address] [place] [phone] Nov, Back pain M54.9 [facility] [address] [id number] [address] [place] [address] Oct, Back pain M54.9 and Anxiety F41.9 [facility] [address] [id number] [address] [place] [address] September, Back pain M54.9 [facility] [address] [id number] [address] [place] [address] September, Back pain M54.9 and Anxiety F41.9 [facility] [address] [facility] [id number] [place] [address] Aug, Diabetes E11.9 ; Anxiety F41 .9 ; Back pain M54.9 and PAD (peripheral artery disease) I73.9 [facility] [address] [id number] [address] [place] [address] Aug, Anxiety F41.9 [facility] [address] [id number] [address] [place] [phone] Aug, Back pain M54.9 [facility] [address] [facility] [id number] [place] [address] Jul, Back pain M54.9 [facility] [address] [id number] [address] [place] [address] Jul, Back pain M54.9 [facility] [address] [id number] [address] [place] [id number] 23 Jul, 2016 Back pain M54.9 [facility] [address] [id number] [address] [place] [phone] 16 Jul, 2016 Dorsalgia M54.9 [facility] [address] [id number] [address] [place] [phone] 14 Jul, 2016 [facility] [address] [id number] [address] [place] [address] May, Back pain M54.9 [facility] [address] [facility] [id number] [place] [address] May, Diabetes E11.9 ; Anxiety F41 .9 ; Port catheter in place Z95.828 ; Encounter for immunization Z23 and Insulin long-term use Z79.4 [facility] [address] [id number] [address] [place] [address] Apr, Back pain M54.9 [facility] [address] [id number] [address] [place] [address] Apr, Back pain M54.9 [facility] [address] [id number] [address] [place] [address] Apr, [facility] [address] [id number] [address] [place] [address] Apr, Back pain M54.9 [facility] [address] [id number] [address] [place] [address] Mar, COPD (chronic obstructive pu lmonary disease) J44.9 [facility] [address] [id number] [address] [place] [address] Feb, [facility] [address] [id number] [address] [place] [address] 30 Jan, 2016 [facility] [address] [id number] [address] [place] [phone] 20 Jan, 2016 [facility] [address] [id number] [address] [place] [address] 07 Jan, 2016 [facility] [address] [id number] [address] [place] [address] 02 Jan, 2016 [facility] [address] [id number] [address] [place] [address] Dec, Diabetes E11.9 ; Hypoxia R09 .02 and Back pain M54.9 [facility] [address] [id number] [address] [place] [phone] Dec, [facility] [address] [id number] [address] [place] [phone] Nov, [facility] [address] [id number] [address] [place] [address] Oct, Anxiety F41.9 [facility] [address] [id number] [address] [place] [phone] Oct, Back pain M54.9 [facility] [address] [id number] [address] [place] [address] September, Back pain M54.9 [facility] [address] [id number] [address] [place] [address] September, Diabetes E11.9 [facility] [address] [id number] [address] [place] [address] September, [facility] [address] [id number] [address] [place] [address] September, Diabetes E11.9 ; Insulin sarai g-term use Z79.4 and Back pain M54.9 [facility] [address] [id number] [address] [place] [address] Aug, Back pain M54.9 [facility] [address] [address] Aug, Back pain M54.9 ; Anxiety F4 1.9 and Arthropathy, unspecified M12.9 [facility] [address] [address] Jul, Back pain M54.9 [facility] [address] [id number] Jul, Anxiety F41.9 [facility] [address] [address] Jul, Back pain M54.9 [facility] [address] [id number] Jul, [facility] [address] [id number] Jul, [facility] [address] [address] May, Back pain M54.9 ; Diabetes E 11.9 ; Insulin long-term use Z79.4 ; COPD (chronic obstructive pulmonary disease) J44.9 and Hypertension I10 [place] [address] [id number] May, Chronic pain G89.29 [place] [address] [address] Apr, [place] [address] [address] Apr, [facility] [address] [id number] Mar, [place] [address] [address] Mar, Encounter for immunization Z 23 and Diabetes E11.9 [facility] [address] [address] Feb, [facility] [address] [id number] [address] [place] [phone] Feb, [facility] [address] [id number] [address] [place] [address], [place] [address] Jan, [facility] [address] [id number] [address] [place] [address], [place] [address] Jan, [facility] [address] [id number] [address] [place] [address], [place] [address] Dec, [facility] [address] [id number] [address] [place] [phone] Dec, [facility] [address] [id number] [address] [place] [address], [place] [address] Dec, Unspecified arthropathy, sit e unspecified 716.90 and Diabetes mellitus type 2, uncontrolled 250.02 [facility] [address] [id number] [address] [place] [address], [place] [address] Dec, [facility] [address] [id number] [address] [place] [phone] Nov, [facility] [address] [id number] [address] [place] [address] Oct, [facility] [address] [id number] [address] [place] [phone] September, [facility] [address] [id number] [address] [place] [phone] September, [facility] [address] [id number] [address] [place] [phone] September, [facility] [address] [id number] [address] [place] [phone] September, [facility] [address] [id number] [address] [place] [phone] Aug, [facility] [address] [id number] [address] [place] [phone] Aug, [facility] [address] [id number] [address] [place] [address], [place] [address] 18 Jul, 2014 [facility] [address] [id number] [address] [place] [address], [place] [address] 18 Jul, 2014 [facility] [address] [id number] [address] [place] [address], [place] [address] 16 Jul, 2014 [facility] [address] [id number] [address] [place] [address], [place] [address] 16 Jul, 2014 [facility] [address] [id number] [address] [place] [address], [place] [address] 16 Jul, 2014 [facility] [address] [id number] [address] [place] [address], [place] [address] 16 Jul, 2014 [facility] [address] [id number] [address] [place] [address], [place] [address] 16 Jul, 2014 [facility] [address] [id number] [address] [place] [address], [place] [address] 16 Jul, 2014 [facility] [address] [id number] [address] [place] [address], [place] [address] 16 Jul, 2014 [facility] [address] [id number] [address] [place] [address], [place] [address] 13 Jul, 2014 [facility] [address] [id number] [address] [place] [address], [place] [address] 13 Jul, 2014 [facility] [address] [id number] [address] [place] [address], [place] [address] 09 Jul, 2014 [facility] [address] [id number] [address] [place] [address], [place] [address] 09 Jul, 2014 [facility] [address] [id number] [address] [place] [address], [place] [address] 17 Jul, 2014 [facility] [address] [id number] [address] [place] [address], [place] [address] 17 Jul, 2014 [facility] [address] [id number] [address] [place] [id number] 16 Jul, 2014 [facility] [address] [id number] [address] [place] [address], [place] [address] 16 Jul, 2014 [facility] [address] [id number] [address] [place] [address], [place] [address] 16 Jul, 2014 [facility] [address] [id number] [address] [place] [address], [place] [address] 16 Jul, 2014 [facility] [address] [id number] [address] [place] [address], [place] [address] 16 Jul, 2014 [facility] [address] [id number] [address] [place] [address], [place] [address] 16 Jul, 2014 [facility] [address] [id number] [address] [place] [address], [place] [address] 16 Jul, 2014 [facility] [address] [id number] [address] [place] [address], [place] [address] 16 Jul, 2014 [facility] [address] [id number] [address] [place] [address], [place] [address] 16 Jul, 2014 [facility] [address] [id number] [address] [place] [address], [place] [address] 16 Jul, 2014 [facility] [address] [id number] [address] [place] [address] 16 Jul, 2014 [facility] [address] [id number] [address] [place] [address] Jul, 2014 [facility] [address] [id number] [address] [place] [address], [place] [address] 16 Jul, 2014 [facility] [address] [id number] [address] [place] [address], [place] [address] 16 Jul, 2014 [facility] [address] [id number] [address] [place] [address] May, [facility] [address] [id number] [address] [place] [address] May, [facility] [address] [id number] [address] [place] [address], [place] [address] May, [facility] [address] [id number] [address] [place] [address], [place] [address] May, [facility] [address] [id number] [address] [place] [address], [place] [address] May, [facility] [address] [id number] [address] [place] [address], [place] [address] May, [facility] [address] [id number] [address] [place] [address], [place] [address] May, [facility] [address] [id number] [address] [place] [address], [place] [address] May, [facility] [address] [id number] [address] [place] [address], [place] [address] May, [facility] [address] [id number] [address] [place] [address], [place] [address] May, [facility] [address] [id number] [address] [place] [address], [place] [address] Apr, [facility] [address] [id number] [address] [place] [address], [place] [address] Apr, [facility] [address] [id number] [address] [place] [address], [place] [address] Apr, [facility] [address] [id number] [address] [place] [address], [place] [address] Apr, [facility] [address] [id number] [address] [place] [address], [place] [address] Apr, [facility] [address] [id number] [address] [place] [address], [place] [address] Apr, [facility] [address] [id number] [address] [place] [address], [place] [address] Mar, [facility] [address] [id number] [address] [place] [address], [place] [address] Mar, [facility] [address] [id number] [address] [place] [address], [place] [address] Mar, [facility] [address] [id number] [address] [place] [address], [place] [address] Mar, [facility] [address] [id number] [address] [place] [address], [place] [address] Mar, [facility] [address] [id number] [address] [place] [address], [place] [address] Mar, [facility] [address] [id number] [address] [place] [address], [place] [address] Mar, [facility] [address] [id number] [address] [place] [address], [place] [address] Mar, [facility] [address] [id number] [address] [place] [address], [place] [address] Mar, [facility] [address] [id number] [address] [place] [address], [place] [address] Mar, [facility] [address] [id number] [address] [place] [address], [place] [address] Mar, [facility] [address] [id number] [address] [place] [address], [place] [address] Feb, [facility] [address] [id number] [address] [place] [address], [place] [address] 30 Feb, 2014 [facility] [address] [id number] [address] [place] [address], [place] [address] Feb, [facility] [address] [id number] [address] [place] [address], [place] [address] Feb, [facility] [address] [id number] [address] [place] [address], [place] [address] Feb, [facility] [address] [id number] [address] [place] [address], [place] [address] Feb, [facility] [address] [id number] [address] [place] [address], [place] [address] Feb, [facility] [address] [id number] [address] [place] [address], [place] [address] Feb, [facility] [address] [id number] [address] [place] [address], [place] [address] Feb, [facility] [address] [id number] [address] [place] [address], [place] [address] Feb, [facility] [address] [id number] [address] [place] [address], [place] [address] Jan, [facility] [address] [id number] [address] [place] [address], [place] [address] 22 Jan, 2014 [facility] [address] [id number] [address] [place] [address], [place] [address] 16 Jan, 2014 [facility] [address] [id number] [address] [place] [address], [place] [address] 16 Jan, 2014 [facility] [address] [id number] [address] [place] [address], [place] [address] Jan, [facility] [address] [id number] [address] [place] [address], [place] [address] Jan, [facility] [address] [id number] [address] [place] [address], [place] [address] Jan, [facility] [address] [id number] [address] [place] [address], [place] [address] Dec, [facility] [address] [id number] [address] [place] [address], [place] [address] Dec, [facility] [address] [id number] [address] [place] [address], [place] [address] Dec, [facility] [address] [id number] [address] [place] [address], [place] [address] Dec, [facility] [address] [id number] [address] [place] [address], [place] [address] Dec, [facility] [address] [id number] [address] [place] [address], [place] [address] Dec, [facility] [address] [id number] [address] [place] [address], [place] [address] Dec, [facility] [address] [id number] [address] [place] [address], [place] [address] Dec, [facility] [address] [id number] [address] [place] [address], [place] [address] Oct, [facility] [address] [id number] [address] [place] [address], [place] [address] Oct, [facility] [address] [id number] [address] [place] [address], [place] [address] September, [facility] [address] [id number] [address] [place] [address], [place] [address] September, [facility] [address] [id number] [address] [place] [address], [place] [address] September, [facility] [address] [id number] [address] [place] [address], [place] [address] September, [facility] [address] [id number] [address] [place] [address], [place] [address] September, [facility] [address] [id number] [address] [place] [address], [place] [address] September, [facility] [address] [id number] [address] [place] [address], [place] [address] September, [facility] [address] [id number] [address] [place] [address], [place] [address] Aug, [facility] [address] [id number] [address] [place] [address], [place] [address] Aug, [facility] [address] [id number] [address] [place] [address], [place] [address] Jul, [facility] [address] [id number] [address] [place] [address], [place] [address] 24 Jul, 2013 [facility] [address] [id number] [address] [place] [address], [place] [address] Jul, [facility] [address] [id number] [address] [place] [address], [place] [address] 17 Jul, 2013 [facility] [address] [id number] [address] [place] [address], [place] [address] 14 Jul, 2013 [facility] [address] [id number] [address] [place] [address], [place] [address] 14 Jul, 2013 [facility] [address] [id number] [address] [place] [address], [place] [address] Jul, [facility] [address] [id number] [address] [place] [address], [place] [address] Jul, [facility] [address] [id number] [address] [place] [address], [place] [address] 15 May, 2013 [facility] [address] [id number] [address] [place] [address], [place] [address] May, [facility] [address] [id number] [address] [place] [address], [place] [address] May, [facility] [address] [id number] [address] [place] [address], [place] [address] May, [facility] [address] [id number] [address] [place] [address], [place] [address] Apr, [facility] [address] [id number] [address] [place] [address], [place] [address] Mar, [facility] [address] [id number] [address] [place] [address], [place] [address] Mar, [facility] [address] [id number] [address] [place] [address], [place] [address] Mar, [facility] [address] [id number] [address] [place] [address] Mar, [facility] [address] [id number] [address] [place] [address], [place] [address] Mar, [facility] [address] [id number] [address] [place] [address] Mar, [facility] [address] [id number] [address] [place] [address] Mar, [facility] [address] [id number] [address] [place] [address] Mar, [facility] [address] [id number] [address] [place] [address], [place] [address] Mar, [facility] [address] [id number] [address] [place] [address] Mar, [facility] [address] [id number] [address] [place] [address] Mar, [facility] [address] [id number] [address] [place] [address] Mar, [facility] [address] [id number] [address] [place] [address] Feb, [facility] [address] [id number] [address] [place] [address] Feb, [facility] [address] [id number] [address] [place] [address] Feb, [facility] [address] [id number] [address] [place] [address] Feb, [facility] [address] [id number] [address] [place] [address] Feb, [facility] [address] [id number] [address] [place] [address] Jan, [facility] [address] [id number] [address] [place] [address] Dec, [facility] [address] [id number] [address] [place] [address], [place] [address] Dec, [facility] [address] [id number] [address] [place] [address], [place] [address] Dec, [facility] [address] [id number] [address] [place] [address], [place] [address] Nov, [facility] [address] [id number] [address] [place] [address], [place] [address] Nov, [facility] [address] [id number] [address] [place] [address], [place] [address] Nov, [facility] [address] [id number] [address] [place] [address], [place] [address] Oct, [facility] [address] [id number] [address] [place] [address], [place] [address] Oct, [facility] [address] [id number] [address] [place] [address], [place] [address] Oct, [facility] [address] [id number] [address] [place] [address], [place] [address] September, [facility] [address] [id number] [address] [place] [address], [place] [address] September, [facility] [address] [id number] [address] [place] [address], [place] [address] September, [facility] [address] [id number] [address] [place] [address], [place] [address] September, [facility] [address] [id number] [address] [place] [address], [place] [address] September, [facility] [address] [id number] [address] [place] [address], [place] [address] Aug, [facility] [address] [id number] [address] [place] [address], [place] [address] Aug, [facility] [address] [id number] [address] [place] [address], [place] [address] Aug, [facility] [address] [id number] [address] [place] [address], [place] [address] Jul, [facility] [address] [id number] [address] [place] [address], [place] [address] Jul, [facility] [address] [id number] [address] [place] [address], [place] [address] Jul, [facility] [address] [id number] [address] [place] [address], [place] [address] Jul, [facility] [address] [id number] [address] [place] [address], [place] [address] Jul, [facility] [address] [id number] [address] [place] [address], [place] [address] Jul, [facility] [address] [id number] [address] [place] [address], [place] [address] Jul, [facility] [address] [id number] [address] [place] [address], [place] [address] May, [facility] [address] [id number] [address] [place] [address], [place] [address] May, [facility] [address] [id number] [address] [place] [address], [place] [address] May, [facility] [address] [id number] [address] [place] [address], [place] [address] Apr, [facility] [address] [id number] [address] [place] [address], [place] [address] Apr, [facility] [address] [id number] [address] [place] [address], [place] [address] Apr, [facility] [address] [id number] [address] [place] [address], [place] [address] Apr, [facility] [address] [id number] [address] [place] [address], [place] [address] Apr, [facility] [address] [id number] [address] [place] [address], [place] [address] Mar, [facility] [address] [id number] [address] [place] [address], [place] [address] Mar, [facility] [address] [id number] [address] [place] [address], [place] [address] Mar, [facility] [address] [id number] [address] [place] [address], [place] [address] Mar, [facility] [address] [id number] [address] [place] [address], [place] [address] Feb, [facility] [address] [id number] [address] [place] [address], [place] [address] Feb, [facility] [address] [id number] [address] [place] [address], [place] [address] Feb, [facility] [address] [id number] [address] [place] [address], [place] [address] Feb, [facility] [address] [id number] [address] [place] [address], [place] [address] Feb, [facility] [address] [id number] [address] [place] [address], [place] [address] Jan, [facility] [address] [id number] [address] [place] [address], [place] [address] Dec, [facility] [address] [id number] [address] [place] [address], [place] [address] Dec, [facility] [address] [id number] [address] [place] [address], [place] [address] Dec, [facility] [address] [id number] [address] [place] [address], [place] [address] Nov, [facility] [address] [id number] [address] [place] [address], [place] [address] Nov, [facility] [address] [id number] [address] [place] [address], [place] [address] Nov, [facility] [address] [id number] [address] [place] [address], [place] [address] Oct, [facility] [address] [id number] [address] [place] [address], [place] [address] Oct, [facility] [address] [id number] [address] [place] [address], [place] [address] Oct, [facility] [address] [id number] [address] [place] [address], [place] [address] Oct, [facility] [address] [id number] [address] [place] [address], [place] [address] September, [facility] [address] [id number] [address] [place] [address], [place] [address] September, [facility] [address] [id number] [address] [place] [address], [place] [address] Aug, [facility] [address] [id number] [address] [place] [address], [place] [address] Aug, [facility] [address] [id number] [address] [place] [address], [place] [address] Aug, [facility] [address] [id number] [address] [place] [address], [place] [address] Aug, [facility] [address] [id number] [address] [place] [address], [place] [address] Aug, [facility] [address] [id number] [address] [place] [address], [place] [address] Aug, [facility] [address] [id number] [address] [place] [address], [place] [phone] Aug, [facility] [address] [id number] [address] [place] [address], [place] [phone] Jul, [facility] [address] [id number] [address] [place] [address], [place] [id number] Jul, [facility] [address] [id number] [address] [place] [phone] Jul, [facility] [address] [id number] [address] [place] [id number] May, [facility] [address] [id number] [address] [place] [id number] May, [facility] [address] [id number] [address] [place] [phone] May, [facility] [address] [id number] [address] [place] [phone] Apr, [facility] [address] [id number] [address] [place] [phone] Apr, [facility] [address] [id number] [address] [place] [phone] Mar, [facility] [address] [id number] [address] [place] [phone] Mar, [facility] [address] [id number] [address] [place] [phone] Mar, [facility] [address] [id number] [address] [place] [phone] Mar, [facility] [address] [id number] [address] [place] [phone] Mar, [facility] [address] [id number] [address] [place] [phone] Mar, [facility] [address] [id number] [address] [place] [phone] Feb, [facility] [address] [id number] [address] [place] [phone] Feb, [facility] [address] [id number] [address] [place] [id number] Feb, IMMUNIZATIONS No Known Immunizations SOCIAL HISTORY [...]
--- OUTSIDE RECORDS SUMMARY | 2020-01-03 07:53 | XMS REPORT ---
Author Author Tra SILVERIO Organization [facility] Address [address] [place] [address] Care Team Providers Care Kier Pleater Name Role Phone FERNY SILVERIO Unavailable PROBLEMS Type Condition ICD9-CM Code BRW08-ZP Code Onset Dates Condition S tatus SNOMED Code Problem Insulin long-term use Z79.4 Active 998259736 Problem Hypertension I10 Active 4966879 3 Problem Diabetes E11.9 Active 45757397 Problem Hypoxia R09.02 Active 533434786 Problem Anxiety F41.9 Active 64871886 Problem Port catheter in place Z95.828 Active 075758311 Problem Pressure ulcer of other site, stage 3 L89.893 Active 850047284 Problem COPD (chronic obstructive pulmonary disease) J44.9 Active 84507708 Problem Type 2 diabetes mellitus wit h diabetic peripheral angiopathy without gangrene E11.51 Active 958960528 Problem Back pain M54.9 Active 686565914 Problem PAD (peripheral artery disease) I73.9 Active 136970951 Problem Lumbar radiculopathy, chronic M54.16 Active 309147696 Problem Recurrent major depressive disorder, in full remission F33.42 Active 040824952 Problem custodial current use of insulin Z79.4 Active 059483084 ALLERGIES No Information ENCOUNTERS Encounter Location Date Diagnosis [facility] [address] [facility] [id number] [address] [place] [phone] Nov, [facility] [address] [facility] [id number] [address] [place] [phone] Oct, Back pain M54.9 [facility] [address] [facility] [id number] [address] [place] [phone] Oct, [facility] [address] [facility] [id number] [address] [place] [id number] Oct, [facility] [address] [id number] [address] [place] [id number] Oct, [facility] [address] [id number] [address] [place] [phone] September, Back pain M54.9 [facility] [address] [id number] [address] [place] [phone] September, [facility] [address] [id number] [address] [place] [id number] September, [facility] [address] [id number] [address] [place] [id number] September, [facility] [address] [id number] [address] [place] [phone] Aug, Back pain M54.9 [facility] [address] [id number] [address] [place] [phone] Aug, Anxiety F41.9 [facility] [address] [id number] [address] [place] [phone] Aug, [facility] [address] [id number] [address] [place] [phone] Aug, Pressure ulcer of other site , stage 3 L89.893 and COPD (chronic obstructive pulmonary disease) J44.9 [facility] [address] [id number] [address] [place] [id number] Aug, History of smoking Z87.891 [facility] [address] [id number] [address] [place] [id number] Jul, Type 2 diabetes mellitus wit h diabetic peripheral angiopathy without gangrene E11.51 [facility] [address] [id number] [address] [place] [phone] Jul, Back pain M54.9 [facility] [address] [id number] [address] [place] [phone] Jul, Anxiety F41.9 [facility] [address] [id number] [address] [place] [id number] 18 Jul, 2018 [facility] [address] [id number] [address] [place] [id number] Jul, Back pain M54.9 [facility] [address] [facility] [id number] [address] [place] [phone] Jul, Back pain M54.9 [facility] [address] [facility] [id number] [address] [place] [phone] Jul, Lumbar radiculopathy, chroni c M54.16 ; Hypertension I10 and Type 2 diabetes mellitus with diabetic peripheral angiopathy without gangrene E11.51 [facility] [address] [id number] [address] [place] [id number] Jul, Back pain M54.9 [facility] [address] [facility] [id number] [address] [place] [id number] Jul, Back pain M54.9 and Anxiety F41.9 [facility] [address] [id number] [address] [place] [phone] Jul, [facility] [address] [facility] [id number] [address] [place] [phone] May, Back pain M54.9 and Anxiety F41.9 [facility] [address] [facility] [id number] [address] [place] [id number] May, [facility] [address] [facility] [id number] [address] [place] [phone] Apr, Radiculopathy of lumbar rhiannon on M54.16 ; Back pain M54.9 and Anxiety F41.9 [facility] [address] [facility] [id number] [address] [place] [id number] Apr, Diabetes E11.9 ; Muscle spas m M62.838 and Lumbar radiculopathy, chronic M54.16 [facility] [address] [facility] [id number] [address] [place] [phone] Apr, [facility] [address] [id number] [address] [place] [phone] Apr, [facility] [address] [id number] [address] [place] [phone] Mar, Back pain M54.9 and Anxiety F41.9 [facility] [address] [id number] [address] [place] [phone] Mar, [facility] [address] [id number] [address] [place] [phone] Mar, [facility] [address] [id number] [address] [place] [phone] Mar, [facility] [address] [id number] [address] [place] [phone] Mar, Encounter for immunization Z 23 [facility] [address] [id number] [address] [place] [id number] Feb, Back pain M54.9 and Anxiety F41.9 [facility] [address] [id number] [address] [place] [phone] Feb, Back pain M54.9 and Anxiety F41.9 [facility] [address] [facility] [id number] [address] [place] [phone] Jan, Back pain M54.9 and Anxiety F41.9 [facility] [address] [id number] [address] [place] [phone] Jan, [facility] [address] [id number] [address] [place] [phone] Dec, [facility] [address] [id number] [address] [place] [phone] Dec, Back pain M54.9 and Anxiety F41.9 [facility] [address] [facility] [id number] [address] [place] [phone] Dec, Diabetes E11.9 ; Type 2 diab etes mellitus with diabetic peripheral angiopathy without gangrene E11.51 ; Lumbar radiculopathy, chronic M54.16 ; COPD (chronic obstructive pulmonary disease) J44.9 and Anxiety F41.9 [facility] [address] [id number] [address] [place] [id number] Dec, Back pain M54.9 and Anxiety F41.9 [facility] [address] [id number] [address] [place] [phone] Nov, Back pain M54.9 and Anxiety F41.9 [facility] [address] [id number] [address] [place] [phone] Oct, [facility] [address] [id number] [address] [place] [phone] Oct, Back pain M54.9 and Anxiety F41.9 [place] [address] [id number] [address] [place] [id number] September, Anxiety F41.9 and Back pain M54.9 [facility] [address] [id number] [address] [place] [id number] September, Diabetes E11.9 ; Hypertensio n I10 ; COPD (chronic obstructive pulmonary disease) J44.9 and Lumbar radiculopathy, chronic M54.16 [facility] [address] [id number] [address] [place] [id number] September, Anxiety F41.9 [facility] [address] [id number] [address] [place] [id number] Aug, [facility] [address] [id number] [address] [place] [phone] Aug, [facility] [address] [id number] [address] [place] [id number] Aug, Anxiety F41.9 and Back pain M54.9 [facility] [address] [id number] [address] [place] [phone] Aug, Medicare annual wellness vis it, initial Z00.00 ; COPD (chronic obstructive pulmonary disease) J44.9 ; PAD (peripheral artery disease) I73.9 ; Insulin long-term use Z79.4 ; Hypertension I10 ; Anxiety F41.9 ; Recurrent major depressive disorder, in full remission F33.42 ; Pressure ulcer of other site, stage 3 L89.893 ; Type 2 diabetes mellitus with diabetic peripheral angiopathy without gangrene E11.51 and custodial current use of insulin Z79.4 [facility] [address] [id number] [address] [place] [phone] Jul, Back pain M54.9 [facility] [address] [id number] [address] [place] [id number] Jul, [facility] [address] [id number] [address] [place] [phone] Jul, Anxiety F41.9 and Back pain M54.9 [facility] [address] [id number] [address] [place] [phone] Jul, Diabetes E11.9 [facility] [address] [id number] [address] [place] [phone] May, [facility] [address] [id number] [address] [place] [phone] May, Diabetes E11.9 ; Anxiety F41 .9 ; Back pain M54.9 and COPD (chronic obstructive pulmonary disease) J44.9 [facility] [address] [id number] [address] [place] [phone] May, Back pain M54.9 [facility] [address] [id number] [address] [place] [phone] May, [facility] [address] [id number] [address] [place] [phone] Apr, Back pain M54.9 [facility] [address] [id number] [address] [place] [phone] Mar, Back pain M54.9 [facility] [address] [id number] [address] [place] [id number] 20 Mar, 2017 [facility] [address] [facility] [id number] [address] [place] [id number] 16 Mar, 2017 [facility] [address] [id number] [address] [place] [phone] 14 Mar, 2017 Radiculopathy of lumbar rhiannon on M54.16 [facility] [address] [id number] [address] [place] [id number] 13 Mar, 2017 [facility] [address] [facility] [id number] [address] [place] [phone] 07 Mar, 2017 Encounter for immunization Z 23 and Lumbar radiculopathy, chronic M54.16 [facility] [address] [facility] [id number] [address] [place] [phone] 01 Mar, 2017 Back pain M54.9 and Anxiety F41.9 [facility] [address] [facility] [id number] [address] [place] [phone] 10 Feb, 2017 Acute bilateral low back boy n with left-sided sciatica M54.42 and Acute bilateral low back pain with right-sided sciatica M54.41 [facility] [address] [facility] [id number] [address] [place] [phone] Feb, [facility] [address] [facility] [id number] [address] [place] [id number] Feb, Back pain M54.9 [facility] [address] [facility] [id number] [address] [place] [phone] 05 Jan, 2017 Back pain M54.9 and Anxiety F41.9 [facility] [address] [facility] [id number] [address] [place] [phone] 05 Jan, 2017 Diabetes E11.9 [facility] [address] [facility] [id number] [address] [place] [id number] 14 Dec, 2016 Diabetes E11.9 ; Back pain M 54.9 ; Anxiety F41.9 and Insulin long- term use Z79.4 [facility] [address] [id number] [address] [place] [phone] Dec, Anxiety F41.9 [facility] [address] [id number] [address] [place] [id number] Dec, Back pain M54.9 [facility] [address] [id number] [address] [place] [phone] Nov, Back pain M54.9 [facility] [address] [id number] [address] [place] [phone] Oct, Back pain M54.9 and Anxiety F41.9 [facility] [address] [id number] [address] [place] [phone] September, Back pain M54.9 [facility] [address] [id number] [address] [place] [phone] September, Back pain M54.9 and Anxiety F41.9 [facility] [address] [id number] [address] [place] [phone] Aug, Diabetes E11.9 ; Anxiety F41 .9 ; Back pain M54.9 and PAD (peripheral artery disease) I73.9 [facility] [address] [id number] [address] [place] [phone] Aug, Anxiety F41.9 [facility] [address] [id number] [address] [place] [phone] Aug, Back pain M54.9 [facility] [address] [id number] [address] [place] [phone] Jul, Back pain M54.9 [facility] [address] [id number] [address] [place] [phone] Jul, Back pain M54.9 [facility] [address] [id number] [address] [place] [id number] Jul, Back pain M54.9 [facility] [address] [id number] [address] [place] [id number] 16 Jul, 2016 Dorsalgia M54.9 [facility] [address] [id number] [address] [place] [id number] 14 Jul, 2016 [facility] [address] [id number] [address] [place] [phone] May, Back pain M54.9 [facility] [address] [id number] [address] [place] [phone] May, Diabetes E11.9 ; Anxiety F41 .9 ; Port catheter in place Z95.828 ; Encounter for immunization Z23 and Insulin long-term use Z79.4 [facility] [address] [id number] [address] [place] [phone] Apr, Back pain M54.9 [facility] [address] [id number] [address] [place] [id number] Apr, Back pain M54.9 [facility] [address] [id number] [address] [place] [phone] Apr, [facility] [address] [id number] [address] [place] [id number] Apr, Back pain M54.9 [facility] [address] [facility] [id number] [address] [place] [phone] Mar, COPD (chronic obstructive pu lmonary disease) J44.9 [facility] [address] [id number] [address] [place] [phone] Feb, [facility] [address] [id number] [address] [place] [phone] 30 Jan, 2016 [facility] [address] [id number] [address] [place] [phone] Jan, [facility] [address] [id number] [address] [place] [phone] Jan, [facility] [address] [id number] [address] [place] [phone] Jan, [facility] [address] [id number] [address] [place] [phone] Dec, Diabetes E11.9 ; Hypoxia R09 .02 and Back pain M54.9 [facility] [address] [id number] [address] [place] [id number] Dec, [facility] [address] [id number] [address] [place] [phone] Nov, [facility] [address] [id number] [address] [place] [phone] Oct, Anxiety F41.9 [facility] [address] [id number] [address] [place] [id number] Oct, Back pain M54.9 [facility] [address] [id number] [address] [place] [phone] September, Back pain M54.9 [facility] [address] [id number] [address] [place] [id number] September, Diabetes E11.9 [facility] [address] [id number] [address] [place] [phone] September, [facility] [address] [id number] [address] [place] [phone] September, Diabetes E11.9 ; Insulin sarai g-term use Z79.4 and Back pain M54.9 [facility] [address] [id number] [address] [place] [phone] Aug, Back pain M54.9 [facility] [address] [id number] [address] [place] [phone] Aug, Back pain M54.9 ; Anxiety F4 1.9 and Arthropathy, unspecified M12.9 [facility] [address] [id number] [address] [place] [phone] Jul, Back pain M54.9 [facility] [address] [id number] [address] [place] [phone] Jul, Anxiety F41.9 [facility] [address] [facility] [id number] [address] [place] [phone] Jul, Back pain M54.9 [facility] [address] [facility] [id number] [address] [place] [phone] Jul, [facility] [address] [facility] [id number] [address] [place] [phone] Jul, [facility] [address] [id number] [address] [place] [id number] May, Back pain M54.9 ; Diabetes E 11.9 ; Insulin long-term use Z79.4 ; COPD (chronic obstructive pulmonary disease) J44.9 and Hypertension I10 [facility] [address] [facility] [id number] [address] [place] [phone] May, Chronic pain G89.29 [facility] [address] [facility] [id number] [address] [place] [id number] Apr, [facility] [address] [facility] [id number] [address] [place] [phone] Apr, [facility] [address] [facility] [id number] [address] [place] [phone] Mar, [facility] [address] [facility] [id number] [address] [place] [id number] Mar, Encounter for immunization Z 23 and Diabetes E11.9 [facility] [address] [id number] [address] [place] [phone] Feb, [facility] [address] [facility] [id number] [address] [place] [phone] Feb, [facility] [address] [facility] [id number] [address] [place] [phone] Jan, [facility] [address] [facility] [id number] [address] [place] [phone] Jan, [facility] [address] [id number] [address] [place] [phone] Dec, [facility] [address] [id number] [address] [place] [id number] Dec, [facility] [address] [id number] [address] [place] [phone] Dec, Unspecified arthropathy, sit e unspecified 716.90 and Diabetes mellitus type 2, uncontrolled 250.02 [facility] [address] [id number] [address] [place] [phone] Dec, [facility] [address] [id number] [address] [place] [phone] Nov, [facility] [address] [id number] [address] [place] [phone] Oct, [facility] [address] [id number] [address] [place] [phone] September, [facility] [address] [id number] [address] [place] [phone] September, [facility] [address] [id number] [address] [place] [phone] September, [facility] [address] [id number] [address] [place] [phone] September, [facility] [address] [id number] [address] [place] [phone] Aug, [facility] [address] [id number] [address] [place] [phone] Aug, [facility] [address] [id number] [address] [place] [id number] Jul, [facility] [address] [id number] [address] [place] [phone] Jul, [facility] [address] [id number] [address] [place] [address], [place] [address] 16 Jul, 2014 [facility] [address] [id number] [address] [place] [address], [place] [address] 16 Jul, 2014 [facility] [address] [id number] [address] [place] [address], [place] [address] 16 Jul, 2014 [facility] [address] [id number] [address] [place] [address], [place] [address] 16 Jul, 2014 [facility] [address] [id number] [address] [place] [address], [place] [address] 16 Jul, 2014 [facility] [address] [id number] [address] [place] [address], [place] [address] 16 Jul, 2014 [facility] [address] [id number] [address] [place] [address], [place] [address] 16 Jul, 2014 [facility] [address] [id number] [address] [place] [address], [place] [address] 13 Jul, 2014 [facility] [address] [id number] [address] [place] [address], [place] [address] 13 Jul, 2014 [facility] [address] [id number] [address] [place] [address], [place] [address] 09 Jul, 2014 [facility] [address] [id number] [address] [place] [address], [place] [address] 09 Jul, 2014 [facility] [address] [id number] [address] [place] [address], [place] [address] 17 Jul, 2014 [facility] [address] [id number] [address] [place] [address], [place] [address] 17 Jul, 2014 [facility] [address] [id number] [address] [place] [address], [place] [address] 16 Jul, 2014 [facility] [address] [id number] [address] [place] [address], [place] [address] 16 Jul, 2014 [facility] [address] [id number] [address] [place] [address], [place] [address] 16 Jul, 2014 [facility] [address] [id number] [address] [place] [address], [place] [address] 16 Jul, 2014 [facility] [address] [id number] [address] [place] [address], [place] [address] 16 Jul, 2014 [facility] [address] [id number] [address] [place] [address], [place] [address] 16 Jul, 2014 [facility] [address] [id number] [address] [place] [address], [place] [address] Jul, 2014 [facility] [address] [id number] [address] [place] [address], [place] [address] Jul, 2014 [facility] [address] [id number] [address] [place] [address], [place] [address] 16 Jul, 2014 [facility] [address] [id number] [address] [place] [address], [place] [address] Jul, 2014 [facility] [address] [id number] [address] [place] [address], [place] [address] Jul, 2014 [facility] [facility] [address] [id number] [address] [place] [address], [place] [address] Jul, 2014 [facility] [address] [id number] [address] [place] [address], [place] [address] 16 Jul, 2014 [facility] [address] [id number] [address] [place] [address], [place] [address] Jul, 2014 [facility] [address] [id number] [address] [place] [address] May, [facility] [address] [id number] [address] [place] [address], [place] [address] May, [facility] [address] [id number] [address] [place] [address] May, [facility] [address] [id number] [address] [place] [address] May, [facility] [address] [id number] [address] [place] [address], [place] [address] May, [facility] [address] [id number] [address] [place] [address], [place] [address] May, [facility] [address] [id number] [address] [place] [address], [place] [address] May, [facility] [address] [id number] [address] [place] [address], [place] [address] May, [facility] [address] [id number] [address] [place] [address], [place] [address] May, [facility] [address] [id number] [address] [place] [address], [place] [address] May, [facility] [address] [id number] [address] [place] [address], [place] [address] Apr, [facility] [address] [id number] [address] [place] [address], [place] [address] Apr, [facility] [address] [id number] [address] [place] [address], [place] [address] Apr, [facility] [address] [id number] [address] [place] [address], [place] [address] Apr, [facility] [address] [id number] [address] [place] [address], [place] [address] Apr, [facility] [address] [id number] [address] [place] [address], [place] [address] Apr, [facility] [address] [id number] [address] [place] [address], [place] [address] Mar, [facility] [address] [id number] [address] [place] [address], [place] [address] Mar, [facility] [address] [id number] [address] [place] [address], [place] [address] Mar, [facility] [address] [id number] [address] [address] Mar, [facility] [address] [id number] [address] [place] [address], [place] [address] Mar, [facility] [address] [id number] [address] [place] [address], [place] [address] Mar, [facility] [address] [id number] [address] [place] [address], [place] [address] Mar, [facility] [address] [id number] [address] [place] [address] Mar, [facility] [address] [id number] [address] [place] [address], [place] [address] Mar, [facility] [address] [id number] [address] [place] [address] Mar, [facility] [address] [id number] [address] [place] [address], [place] [address] Mar, [facility] [address] [id number] [address] [place] [address], [place] [address] Feb, [facility] [address] [id number] [address] [place] [address], [place] [address] 30 Feb, 2014 [facility] [address] [id number] [address] [place] [address] Feb, [facility] [address] [id number] [address] [place] [address] 15 Feb, 2014 [facility] [address] [id number] [address] [place] [address] Feb, [facility] [address] [id number] [address] [place] [address], [place] [address] Feb, [facility] [address] [id number] [address] [place] [address], [place] [address] Feb, [facility] [address] [id number] [address] [place] [address] Feb, [facility] [address] [id number] [facility] [place] [address] Feb, [facility] [address] [id number] [address] [place] [address], [place] [address] Feb, [facility] [address] [id number] [address] [place] [address], [place] [address] Jan, [facility] [address] [id number] [address] [place] [address], [place] [address] Jan, [facility] [address] [id number] [address] [place] [address], [place] [address] 16 Jan, 2014 [facility] [address] [id number] [address] [place] [address], [place] [address] Jan, [facility] [address] [id number] [address] [place] [address], [place] [address] Jan, [facility] [address] [id number] [address] [place] [address], [place] [address] Jan, [facility] [address] [id number] [address] [place] [address], [place] [address] Jan, [facility] [address] [id number] [address] [place] [address], [place] [address] Dec, [facility] [address] [id number] [address] [place] [address], [place] [address] Dec, [facility] [address] [id number] [address] [place] [address], [place] [address] Dec, [facility] [address] [id number] [address] [place] [address], [place] [address] Dec, [facility] [address] [id number] [address] [place] [address], [place] [address] Dec, [facility] [address] [id number] [address] [place] [address], [place] [address] Dec, [facility] [address] [id number] [address] [place] [address], [place] [address] Dec, [facility] [address] [id number] [address] [place] [address], [place] [address] Dec, [facility] [address] [id number] [address] [place] [address], [place] [address] Oct, [facility] [address] [id number] [address] [place] [address], [place] [address] Oct, [facility] [address] [id number] [address] [place] [address], [place] [address] September, [facility] [address] [id number] [address] [place] [address], [place] [address] September, [facility] [address] [id number] [address] [place] [address], [place] [address] September, [facility] [address] [id number] [address] [place] [address], [place] [address] September, [facility] [address] [id number] [address] [place] [address], [place] [address] September, [facility] [address] [id number] [address] [place] [address], [place] [address] September, [facility] [address] [id number] [address] [place] [address], [place] [address] September, [facility] [address] [id number] [address] [place] [address], [place] [address] Aug, [facility] [address] [id number] [address] [place] [address], [place] [address] Aug, [facility] [address] [id number] [address] [place] [address], [place] [address] Jul, [facility] [address] [id number] [address] [place] [address], [place] [address] Jul, [facility] [address] [id number] [address] [place] [address], [place] [address] Jul, [facility] [address] [id number] [address] [place] [address], [place] [address] 17 Jul, 2013 [facility] [address] [id number] [address] [place] [address], [place] [address] 14 Jul, 2013 [facility] [address] [id number] [address] [place] [address], [place] [address] 14 Jul, 2013 [facility] [address] [id number] [address] [place] [address], [place] [address] 03 Jul, 2013 [facility] [address] [id number] [address] [place] [address], [place] [address] Jul, [facility] [address] [id number] [address] [place] [address], [place] [address] 15 May, 2013 [facility] [address] [id number] [address] [place] [address], [place] [address] May, [facility] [address] [id number] [address] [place] [address], [place] [address] May, [facility] [address] [id number] [address] [place] [address], [place] [address] May, [facility] [address] [id number] [address] [place] [address], [place] [address] Apr, [facility] [address] [id number] [address] [place] [address], [place] [address] Mar, [facility] [address] [id number] [address] [place] [address], [place] [address] Mar, [facility] [address] [id number] [address] [place] [address], [place] [address] Mar, [facility] [address] [id number] [address] [place] [address], [place] [address] Mar, [facility] [address] [id number] [address] [place] [address], [place] [address] Mar, [facility] [address] [id number] [address] [place] [address], [place] [address] Mar, [facility] [address] [id number] [address] [place] [address], [place] [address] Mar, [facility] [address] [id number] [address] [place] [address], [place] [address] Mar, [facility] [address] [id number] [address] [place] [address], [place] [address] Mar, [facility] [address] [id number] [address] [place] [address], [place] [address] Mar, [facility] [address] [id number] [address] [place] [address], [place] [address] Mar, [facility] [address] [id number] [address] [place] [address], [place] [address] Mar, [facility] [address] [id number] [address] [place] [address], [place] [address] Feb, [facility] [address] [id number] [address] [place] [address] Feb, [facility] [address] [id number] [address] [place] [address], [place] [address] Feb, [facility] [address] [id number] [address] [place] [address] Feb, [facility] [address] [id number] [address] [place] [address] Feb, [facility] [address] [id number] [address] [place] [address] Jan, [facility] [address] [id number] [address] [place] [address], [place] [address] Dec, [facility] [address] [id number] [address] [place] [address] Dec, [facility] [address] [id number] [address] [place] [address] Dec, [facility] [address] [id number] [address] [place] [address] Nov, [facility] [address] [id number] [address] [place] [address], [place] [address] Nov, [facility] [address] [id number] [address] [place] [address], [place] [address] Nov, [facility] [address] [id number] [address] [place] [address], [place] [address] Oct, [facility] [address] [id number] [address] [place] [address], [place] [address] Oct, [facility] [address] [id number] [address] [place] [address], [place] [address] Oct, [facility] [address] [id number] [address] [place] [address], [place] [address] September, [facility] [address] [id number] [address] [place] [address], [place] [address] September, [facility] [address] [id number] [address] [place] [address], [place] [address] September, [facility] [address] [id number] [address] [place] [address], [place] [address] September, [facility] [address] [id number] [address] [place] [address], [place] [address] September, [facility] [address] [id number] [address] [place] [address], [place] [address] Aug, [facility] [address] [id number] [address] [place] [address], [place] [address] Aug, [facility] [address] [id number] [address] [place] [address], [place] [address] Aug, [facility] [address] [id number] [address] [place] [address], [place] [address] Jul, [facility] [address] [id number] [address] [place] [address], [place] [address] Jul, [facility] [address] [id number] [address] [place] [address], [place] [address] Jul, [facility] [address] [id number] [address] [place] [address], [place] [address] Jul, [facility] [address] [id number] [address] [place] [address], [place] [address] Jul, [facility] [address] [id number] [address] [place] [address], [place] [address] Jul, [facility] [address] [id number] [address] [place] [address], [place] [address] Jul, [facility] [address] [id number] [address] [place] [address], [place] [address] May, [facility] [address] [id number] [address] [place] [address], [place] [address] May, [facility] [address] [id number] [address] [place] [address], [place] [address] May, [facility] [address] [id number] [address] [place] [address], [place] [address] Apr, [facility] [address] [id number] [address] [place] [address], [place] [address] Apr, [facility] [address] [id number] [address] [place] [address], [place] [address] Apr, [facility] [address] [id number] [address] [place] [address], [place] [address] Apr, [facility] [address] [id number] [address] [place] [address], [place] [address] Apr, [facility] [address] [id number] [address] [place] [address], [place] [address] Mar, [facility] [address] [id number] [address] [place] [address], [place] [address] 29 Mar, 2012 [facility] [address] [id number] [address] [place] [address], [place] [address] Mar, [facility] [address] [id number] [address] [place] [address], [place] [address] Mar, [facility] [address] [id number] [address] [place] [address], [place] [address] Feb, [facility] [address] [id number] [address] [place] [address], [place] [address] Feb, [facility] [address] [id number] [address] [place] [address], [place] [address] Feb, [facility] [address] [id number] [address] [place] [address], [place] [address] Feb, [facility] [address] [id number] [address] [place] [address], [place] [address] Feb, [facility] [address] [id number] [address] [place] [address], [place] [address] Jan, [facility] [address] [id number] [address] [place] [address], [place] [address] Dec, [facility] [address] [id number] [address] [place] [address], [place] [address] Dec, [facility] [address] [id number] [address] [place] [address], [place] [address] Dec, [facility] [address] [id number] [address] [place] [address], [place] [address] Nov, [facility] [address] [id number] [address] [place] [address] Nov, [facility] [address] [id number] [address] [place] [address], [place] [address] Nov, [facility] [address] [id number] [address] [place] [address], [place] [address] Oct, [facility] [address] [id number] [address] [place] [address], [place] [address] Oct, [facility] [address] [id number] [address] [place] [address], [place] [address] Oct, [facility] [address] [id number] [address] [place] [address], [place] [address] Oct, [facility] [address] [id number] [address] [place] [address], [place] [address] September, [facility] [address] [id number] [address] [place] [address], [place] [address] September, [facility] [address] [id number] [address] [place] [address], [place] [address] Aug, [facility] [address] [id number] [address] [place] [address], [place] [address] Aug, [facility] [address] [id number] [address] [place] [address], [place] [address] Aug, [facility] [address] [id number] [address] [place] [address], [place] [address] Aug, [facility] [address] [id number] [address] [place] [address], [place] [address] Aug, [facility] [address] [id number] [address] [place] [address], [place] [address] Aug, [facility] [address] [id number] [address] [place] [address], [place] [id number] Aug, [facility] [address] [id number] [address] [place] [address], [place] [address] Jul, [facility] [address] [id number] [address] [place] [address], [place] [address] Jul, [facility] [address] [id number] [address] [place] [address], [place] [address] Jul, [facility] [address] [id number] [address] [place] [address], [place] [address] May, [facility] [address] [id number] [address] [place] [address], [place] [address] May, [facility] [address] [id number] [address] [place] [id number] May, [facility] [address] [id number] [address] [place] [id number] Apr, [facility] [address] [id number] [address] [place] [id number] Apr, [facility] [address] [id number] [address] [place] [id number] Mar, [facility] [address] [id number] [address] [place] [id number] Mar, [facility] [address] [id number] [address] [place] [id number] Mar, [facility] [address] [id number] [address] [place] [id number] Mar, [facility] [address] [id number] [address] [place] [id number] Mar, [facility] [address] [id number] [address] [place] [id number] Mar, [facility] [address] [id number] [address] [place] [id number] Feb, [facility] [address] [id number] [address] [place] [id number] Feb, [facility] [address] [id number] [address] [place] [id number] Feb, IMMUNIZATIONS No Known Immunizations SOCIAL HISTORY [...]
--- OUTSIDE RECORDS SUMMARY | 2020-01-03 07:53 | XMS REPORT ---
Author Author Tra SILVERIO Organization [facility] Address [address] [place] [address] Care Team Providers Care Supervisor Gate Services Name Role Phone FERNY SILVERIO Unavailable PROBLEMS Type Condition ICD9-CM Code DNR92-PD Code Onset Dates Condition S tatus SNOMED Code Problem Insulin long-term use Z79.4 Active 056493666 Problem Hypertension I10 Active 1330331 3 Problem Diabetes E11.9 Active 66284088 Problem Hypoxia R09.02 Active 466282844 Problem Anxiety F41.9 Active 40758788 Problem Port catheter in place Z95.828 Active 425895107 Problem Pressure ulcer of other site, stage 3 L89.893 Active 075057451 Problem COPD (chronic obstructive pulmonary disease) J44.9 Active 94024123 Problem Type 2 diabetes mellitus wit h diabetic peripheral angiopathy without gangrene E11.51 Active 374318269 Problem Back pain M54.9 Active 166380991 Problem PAD (peripheral artery disease) I73.9 Active 404533613 Problem Lumbar radiculopathy, chronic M54.16 Active 969244552 Problem Recurrent major depressive disorder, in full remission F33.42 Active 051428738 Problem assisted current use of insulin Z79.4 Active 501593313 ALLERGIES No Information ENCOUNTERS Encounter Location Date Diagnosis [facility] [address] [id number] [address] [place] [id number] Nov, Back pain M54.9 [facility] [address] [id number] [address] [place] [id number] Nov, Anxiety F41.9 [facility] [address] [id number] [address] [place] [id number] Nov, [facility] [address] [id number] [address] [place] [id number] Oct, Back pain M54.9 [facility] [address] [id number] [address] [place] [id number] 07 Oct, 2018 [facility] [address] [id number] [address] [place] [id number] Oct, [facility] [address] [id number] [address] [place] [id number] Oct, [facility] [address] [id number] [address] [place] [id number] September, Back pain M54.9 [facility] [address] [id number] [address] [place] [id number] September, [facility] [address] [id number] [address] [place] [id number] September, [facility] [address] [id number] [address] [place] [phone] September, [facility] [address] [id number] [address] [place] [id number] Aug, Back pain M54.9 [facility] [address] [id number] [address] [place] [id number] Aug, Anxiety F41.9 [facility] [address] [id number] [address] [place] [id number] Aug, [facility] [address] [id number] [address] [place] [id number] Aug, Pressure ulcer of other site , stage 3 L89.893 and COPD (chronic obstructive pulmonary disease) J44.9 [facility] [address] [id number] [address] [place] [id number] Aug, History of smoking Z87.891 [facility] [address] [id number] [address] [place] [id number] Jul, Type 2 diabetes mellitus wit h diabetic peripheral angiopathy without gangrene E11.51 [facility] [address] [id number] [address] [place] [address] Jul, Back pain M54.9 [facility] [address] [id number] [address] [place] [id number] Jul, Anxiety F41.9 [facility] [address] [id number] [address] [place] [id number] Jul, [facility] [address] [id number] [address] [place] [id number] 13 Jul, 2018 Back pain M54.9 [facility] [address] [id number] [address] [place] [id number] Jul, Back pain M54.9 [facility] [address] [id number] [address] [place] [id number] Jul, Lumbar radiculopathy, chroni c M54.16 ; Hypertension I10 and Type 2 diabetes mellitus with diabetic peripheral angiopathy without gangrene E11.51 [facility] [address] [id number] [address] [place] [id number] Jul, Back pain M54.9 [facility] [address] [id number] [address] [place] [id number] Jul, Back pain M54.9 and Anxiety F41.9 [facility] [address] [id number] [address] [place] [id number] Jul, [facility] [address] [id number] [address] [place] [id number] May, Back pain M54.9 and Anxiety F41.9 [facility] [address] [id number] [address] [place] [id number] May, [facility] [address] [id number] [address] [place] [address] Apr, Radiculopathy of lumbar rhiannon on M54.16 ; Back pain M54.9 and Anxiety F41.9 [facility] [address] [id number] [address] [place] [address] Apr, Diabetes E11.9 ; Muscle spas m M62.838 and Lumbar radiculopathy, chronic M54.16 [facility] [address] [id number] [address] [place] [id number] Apr, [facility] [address] [id number] [address] [place] [address] Apr, [facility] [address] [id number] [address] [place] [address] Mar, Back pain M54.9 and Anxiety F41.9 [facility] [address] [id number] [address] [place] [phone] Mar, [facility] [address] [id number] [address] [place] [id number] Mar, [facility] [address] [id number] [address] [place] [id number] Mar, [facility] [address] [id number] [address] [place] [id number] Mar, Encounter for immunization Z 23 [facility] [address] [id number] [address] [place] [id number] Feb, Back pain M54.9 and Anxiety F41.9 [facility] [address] [id number] [address] [place] [id number] Feb, Back pain M54.9 and Anxiety F41.9 [facility] [address] [id number] [address] [place] [id number] Jan, Back pain M54.9 and Anxiety F41.9 [facility] [address] [id number] [address] [place] [id number] Jan, [facility] [address] [id number] [address] [place] [id number] Dec, [facility] [address] [id number] [address] [place] [id number] Dec, Back pain M54.9 and Anxiety F41.9 [facility] [address] [id number] [address] [place] [id number] Dec, Diabetes E11.9 ; Type 2 diab etes mellitus with diabetic peripheral angiopathy without gangrene E11.51 ; Lumbar radiculopathy, chronic M54.16 ; COPD (chronic obstructive pulmonary disease) J44.9 and Anxiety F41.9 [facility] [address] [id number] [address] [place] [id number] Dec, Back pain M54.9 and Anxiety F41.9 [facility] [address] [id number] [address] [place] [id number] Nov, Back pain M54.9 and Anxiety F41.9 [facility] [address] [place] [id number] [address] [place] [id number] Oct, [facility] [address] [id number] [address] [place] [address] Oct, Back pain M54.9 and Anxiety F41.9 [facility] [address] [id number] [address] [place] [id number] September, Anxiety F41.9 and Back pain M54.9 [facility] [address] [id number] [address] [place] [id number] September, Diabetes E11.9 ; Hypertensio n I10 ; COPD (chronic obstructive pulmonary disease) J44.9 and Lumbar radiculopathy, chronic M54.16 [facility] [address] [id number] [address] [place] [address] September, Anxiety F41.9 [facility] [address] [id number] [address] [place] [id number] Aug, [facility] [address] [facility] [id number] [address] [place] [id number] Aug, [facility] [address] [id number] [address] [place] [id number] Aug, Anxiety F41.9 and Back pain M54.9 [facility] [address] [id number] [address] [place] [address] Aug, Medicare annual wellness vis it, initial Z00.00 ; COPD (chronic obstructive pulmonary disease) J44.9 ; PAD (peripheral artery disease) I73.9 ; Insulin long-term use Z79.4 ; Hypertension I10 ; Anxiety F41.9 ; Recurrent major depressive disorder, in full remission F33.42 ; Pressure ulcer of other site, stage 3 L89.893 ; Type 2 diabetes mellitus with diabetic peripheral angiopathy without gangrene E11.51 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 [facility] [address] [facility] [id number] [address] [place] [id number] Jul, Back pain M54.9 [facility] [address] [facility] [facility] [id number] [address] [place] [id number] Jul, [facility] [address] [id number] [address] [place] [id number] Jul, Anxiety F41.9 and Back pain M54.9 [facility] [address] [facility] [id number] [address] [place] [id number] Jul, Diabetes E11.9 [facility] [address] [facility] [facility] [id number] [address] [place] [id number] May, [facility] [address] [facility] [facility] [id number] [address] [place] [id number] May, Diabetes E11.9 ; Anxiety F41 .9 ; Back pain M54.9 and COPD (chronic obstructive pulmonary disease) J44.9 [facility] [place] [address] [facility] [id number] [address] [place] [id number] May, Back pain M54.9 [facility] [place] [address] [facility] [id number] [address] [place] [id number] May, [facility] [address] [id number] [address] [place] [id number] Apr, Back pain M54.9 [facility] [address] [id number] [address] [place] [id number] 30 Mar, 2017 Back pain M54.9 [facility] [address] [id number] [address] [place] [id number] Mar, [facility] [address] [id number] [address] [place] [id number] 16 Mar, 2017 [facility] [address] [id number] [address] [place] [id number] 14 Mar, 2017 Radiculopathy of lumbar rhiannon on M54.16 [facility] [address] [id number] [address] [place] [id number] 13 Mar, 2017 [facility] [address] [id number] [address] [place] [id number] 07 Mar, 2017 Encounter for immunization Z 23 and Lumbar radiculopathy, chronic M54.16 [facility] [address] [id number] [address] [place] [id number] Mar, Back pain M54.9 and Anxiety F41.9 [facility] [address] [id number] [address] [place] [id number] 10 Feb, 2017 Acute bilateral low back boy n with left-sided sciatica M54.42 and Acute bilateral low back pain with right-sided sciatica M54.41 [facility] [address] [id number] [address] [place] [id number] Feb, [facility] [address] [id number] [address] [place] [id number] Feb, Back pain M54.9 [facility] [address] [id number] [address] [place] [id number] 05 Jan, 2017 Back pain M54.9 and Anxiety F41.9 [facility] [address] [id number] [address] [place] [id number] 05 Jan, 2017 Diabetes E11.9 [facility] [address] [id number] [address] [place] [id number] Dec, Diabetes E11.9 ; Back pain M 54.9 ; Anxiety F41.9 and Insulin long- term use Z79.4 [facility] [address] [id number] [address] [place] [id number] Dec, Anxiety F41.9 [facility] [address] [id number] [address] [place] [id number] Dec, Back pain M54.9 [facility] [address] [id number] [address] [place] [id number] Nov, Back pain M54.9 [facility] [address] [id number] [address] [place] [id number] Oct, Back pain M54.9 and Anxiety F41.9 [facility] [address] [id number] [address] [place] [id number] September, Back pain M54.9 [facility] [address] [id number] [address] [place] [id number] September, Back pain M54.9 and Anxiety F41.9 [facility] [address] [address] [id number] [address] [place] [id number] Aug, Diabetes E11.9 ; Anxiety F41 .9 ; Back pain M54.9 and PAD (peripheral artery disease) I73.9 [facility] [address] [id number] [address] [place] [id number] Aug, Anxiety F41.9 [facility] [address] [id number] [address] [place] [id number] Aug, Back pain M54.9 [facility] [address] [id number] [address] [place] [id number] Jul, Back pain M54.9 [facility] [address] [id number] [address] [place] [id number] Jul, Back pain M54.9 [facility] [address] [id number] [address] [place] [id number] 23 Jul, 2016 Back pain M54.9 [facility] [address] [id number] [address] [place] [id number] 16 Jul, 2016 Dorsalgia M54.9 [facility] [address] [id number] [address] [place] [id number] 14 Jul, 2016 [facility] [address] [id number] [address] [place] [id number] May, Back pain M54.9 [facility] [address] [id number] [address] [place] [id number] May, Diabetes E11.9 ; Anxiety F41 .9 ; Port catheter in place Z95.828 ; Encounter for immunization Z23 and Insulin long-term use Z79.4 [facility] [address] [id number] [address] [place] [id number] Apr, Back pain M54.9 [facility] [address] [id number] [address] [place] [id number] Apr, Back pain M54.9 [facility] [address] [id number] [address] [place] [id number] Apr, [facility] [address] [id number] [address] [place] [id number] Apr, Back pain M54.9 [facility] [address] [id number] [address] [place] [id number] Mar, COPD (chronic obstructive pu lmonary disease) J44.9 [facility] [address] [id number] [address] [place] [id number] Feb, [facility] [address] [id number] [address] [place] [id number] 30 Jan, 2016 [facility] [address] [id number] [address] [place] [id number] 20 Jan, 2016 [facility] [address] [id number] [address] [place] [id number] 07 Jan, 2016 [facility] [address] [id number] [address] [place] [id number] 02 Jan, 2016 [facility] [address] [id number] [address] [place] [id number] Dec, Diabetes E11.9 ; Hypoxia R09 .02 and Back pain M54.9 [facility] [address] [id number] [address] [place] [id number] Dec, [facility] [address] [id number] [address] [place] [id number] Nov, [facility] [address] [id number] [address] [place] [id number] Oct, Anxiety F41.9 [facility] [address] [id number] [address] [place] [id number] Oct, Back pain M54.9 [facility] [address] [id number] [address] [place] [id number] September, Back pain M54.9 [facility] [address] [id number] [address] [place] [id number] September, Diabetes E11.9 [facility] [address] [id number] [address] [place] [id number] September, [facility] [address] [id number] [address] [place] [phone] September, Diabetes E11.9 ; Insulin sarai g-term use Z79.4 and Back pain M54.9 [facility] [address] [id number] [address] [place] [id number] Aug, Back pain M54.9 [facility] [address] [id number] Aug, Back pain M54.9 ; Anxiety F4 1.9 and Arthropathy, unspecified M12.9 [facility] [address] [id number] Jul, Back pain M54.9 [facility] [address] [id number] Jul, Anxiety F41.9 [facility] [address] [id number] Jul, Back pain M54.9 [facility] [address] [id number] Jul, [facility] [address] [id number] Jul, [facility] [address] [id number] May, Back pain M54.9 ; Diabetes E 11.9 ; Insulin long-term use Z79.4 ; COPD (chronic obstructive pulmonary disease) J44.9 and Hypertension I10 [place] [address] [id number] May, Chronic pain G89.29 [place] [address] [address] Apr, [place] [address] [id number] Apr, [facility] [address] [id number] Mar, [place] [address] [id number] Mar, Encounter for immunization Z 23 and Diabetes E11.9 [facility] [address] [id number] Feb, [facility] [address] [id number] [address] [place] [id number] Feb, [facility] [address] [id number] [address] [place] [address], [place] [id number] Jan, [facility] [address] [id number] [address] [place] [address], [place] [id number] Jan, [facility] [address] [id number] [address] [place] [address], [place] [id number] Dec, [facility] [address] [id number] [address] [place] [id number] Dec, [facility] [address] [id number] [address] [place] [address], [place] [id number] Dec, Unspecified arthropathy, sit e unspecified 716.90 and Diabetes mellitus type 2, uncontrolled 250.02 [facility] [address] [id number] [address] [place] [address], [place] [id number] Dec, [facility] [address] [id number] [address] [place] [id number] Nov, [facility] [address] [id number] [address] [place] [id number] Oct, [facility] [address] [id number] [address] [place] [id number] September, [facility] [address] [id number] [address] [place] [id number] September, [facility] [address] [id number] [address] [place] [id number] September, [facility] [address] [id number] [address] [place] [id number] September, [facility] [address] [id number] [address] [place] [id number] Aug, [facility] [address] [id number] [address] [place] [id number] Aug, [facility] [address] [id number] [address] [place] [address], [place] [id number] 18 Jul, 2014 [facility] [address] [id number] [address] [place] [address], [place] [id number] 18 Jul, 2014 [facility] [address] [id number] [address] [place] [address], [place] [id number] 16 Jul, 2014 [facility] [address] [id number] [address] [place] [address], [place] [id number] 16 Jul, 2014 [facility] [address] [id number] [address] [place] [address], [place] [id number] 16 Jul, 2014 [facility] [address] [id number] [address] [place] [address], [place] [id number] 16 Jul, 2014 [facility] [address] [id number] [address] [place] [address], [place] [id number] 16 Jul, 2014 [facility] [address] [id number] [address] [place] [address], [place] [id number] 16 Jul, 2014 [facility] [address] [id number] [address] [place] [address], [place] [id number] 16 Jul, 2014 [facility] [address] [id number] [address] [place] [address], [place] [id number] 13 Jul, 2014 [facility] [address] [id number] [address] [place] [address], [place] [id number] 13 Jul, 2014 [facility] [address] [id number] [address] [place] [address], [place] [id number] 09 Jul, 2014 [facility] [address] [id number] [address] [place] [address], [place] [id number] 09 Jul, 2014 [facility] [address] [id number] [address] [place] [address], [place] [id number] 17 Jul, 2014 [facility] [address] [id number] [address] [place] [address], [place] [id number] 17 Jul, 2014 [facility] [address] [id number] [address] [place] [id number] 16 Jul, 2014 [facility] [address] [id number] [address] [place] [address], [place] [id number] 16 Jul, 2014 [facility] [address] [id number] [address] [place] [address], [place] [id number] 16 Jul, 2014 [facility] [address] [id number] [address] [place] [address], [place] [id number] 16 Jul, 2014 [facility] [address] [id number] [address] [place] [address], [place] [id number] 16 Jul, 2014 [facility] [address] [id number] [address] [place] [address], [place] [id number] 16 Jul, 2014 [facility] [address] [id number] [address] [place] [address], [place] [id number] 16 Jul, 2014 [facility] [address] [id number] [address] [place] [address], [place] [id number] 16 Jul, 2014 [facility] [address] [id number] [address] [place] [address], [place] [id number] 16 Jul, 2014 [facility] [address] [id number] [address] [place] [address], [place] [id number] 16 Jul, 2014 [facility] [address] [id number] [address] [place] [id number] 16 Jul, 2014 [facility] [address] [id number] [address] [place] [id number] Jul, 2014 [facility] [address] [id number] [address] [place] [address], [place] [id number] 16 Jul, 2014 [facility] [address] [id number] [address] [place] [address], [place] [address] 16 Jul, 2014 [facility] [address] [id number] [address] [place] [id number] May, [facility] [address] [id number] [address] [place] [id number] May, [facility] [address] [id number] [address] [place] [address], [place] [address] May, [facility] [address] [id number] [address] [place] [address], [place] [address] May, [facility] [address] [id number] [address] [place] [address], [place] [address] May, [facility] [address] [id number] [address] [place] [address], [place] [address] May, [facility] [address] [id number] [address] [place] [address], [place] [address] May, [facility] [address] [id number] [address] [place] [address], [place] [address] May, [facility] [address] [id number] [address] [place] [address], [place] [address] May, [facility] [address] [id number] [address] [place] [address], [place] [address] May, [facility] [address] [id number] [address] [place] [address], [place] [address] Apr, [facility] [address] [id number] [address] [place] [address], [place] [address] Apr, [facility] [address] [id number] [address] [place] [address], [place] [address] Apr, [facility] [address] [id number] [address] [place] [address], [place] [address] Apr, [facility] [address] [id number] [address] [place] [address], [place] [address] Apr, [facility] [address] [id number] [address] [place] [address], [place] [address] Apr, [facility] [address] [id number] [address] [place] [address], [place] [address] Mar, [facility] [address] [id number] [address] [place] [address], [place] [address] Mar, [facility] [address] [id number] [address] [place] [address], [place] [address] Mar, [facility] [address] [id number] [address] [place] [address], [place] [address] Mar, [facility] [address] [id number] [address] [place] [address], [place] [address] Mar, [facility] [address] [id number] [address] [place] [address], [place] [address] Mar, [facility] [address] [id number] [address] [place] [address], [place] [address] Mar, [facility] [address] [id number] [address] [place] [address], [place] [address] Mar, [facility] [address] [id number] [address] [place] [address], [place] [address] Mar, [facility] [address] [id number] [address] [place] [address], [place] [address] Mar, [facility] [address] [id number] [address] [place] [address], [place] [address] Mar, [facility] [address] [id number] [address] [place] [address], [place] [address] Feb, [facility] [address] [id number] [address] [place] [address], [place] [address] 30 Feb, 2014 [facility] [address] [id number] [address] [place] [address], [place] [address] Feb, [facility] [address] [id number] [address] [place] [address], [place] [address] Feb, [facility] [address] [id number] [address] [place] [address], [place] [address] Feb, [facility] [address] [id number] [address] [place] [address], [place] [address] Feb, [facility] [address] [id number] [address] [place] [address], [place] [address] Feb, [facility] [address] [id number] [address] [place] [address], [place] [address] Feb, [facility] [address] [id number] [address] [place] [address], [place] [address] Feb, [facility] [address] [id number] [address] [place] [address], [place] [address] Feb, [facility] [address] [id number] [address] [place] [address], [place] [address] Jan, [facility] [address] [id number] [address] [place] [address], [place] [address] 22 Jan, 2014 [facility] [address] [id number] [address] [place] [address], [place] [address] 16 Jan, 2014 [facility] [address] [id number] [address] [place] [address], [place] [address] 16 Jan, 2014 [facility] [address] [id number] [address] [place] [address], [place] [address] Jan, [facility] [address] [id number] [address] [place] [address], [place] [address] Jan, [facility] [address] [id number] [address] [place] [address], [place] [address] Jan, [facility] [address] [id number] [address] [place] [address], [place] [address] Dec, [facility] [address] [id number] [address] [place] [address], [place] [address] Dec, [facility] [address] [id number] [address] [place] [address], [place] [address] Dec, [facility] [address] [id number] [address] [place] [address], [place] [address] Dec, [facility] [address] [id number] [address] [place] [address], [place] [address] Dec, [facility] [address] [id number] [address] [place] [address], [place] [address] Dec, [facility] [address] [id number] [address] [place] [address], [place] [address] Dec, [facility] [address] [id number] [address] [place] [address], [place] [address] Dec, [facility] [address] [id number] [address] [place] [address], [place] [address] Oct, [facility] [address] [id number] [address] [place] [address], [place] [address] Oct, [facility] [address] [id number] [address] [place] [address], [place] [address] September, [facility] [address] [id number] [address] [place] [address], [place] [address] September, [facility] [address] [id number] [address] [place] [address], [place] [address] September, [facility] [address] [id number] [address] [place] [address], [place] [address] September, [facility] [address] [id number] [address] [place] [address], [place] [address] September, [facility] [address] [id number] [address] [place] [address], [place] [address] September, [facility] [address] [id number] [address] [place] [address], [place] [address] September, [facility] [address] [id number] [address] [place] [address], [place] [address] Aug, [facility] [address] [id number] [address] [place] [address], [place] [address] Aug, [facility] [address] [id number] [address] [place] [address], [place] [address] Jul, [facility] [address] [id number] [address] [place] [address], [place] [address] 24 Jul, 2013 [facility] [address] [id number] [address] [place] [address], [place] [address] Jul, [facility] [address] [id number] [address] [place] [address], [place] [address] 17 Jul, 2013 [facility] [address] [id number] [address] [place] [address], [place] [address] 14 Jul, 2013 [facility] [address] [id number] [address] [place] [address], [place] [address] 14 Jul, 2013 [facility] [address] [id number] [address] [place] [address], [place] [address] Jul, [facility] [address] [id number] [address] [place] [address], [place] [address] Jul, [facility] [address] [id number] [address] [place] [address], [place] [address] 15 May, 2013 [facility] [address] [id number] [address] [place] [address], [place] [address] May, [facility] [address] [id number] [address] [place] [address], [place] [address] May, [facility] [address] [id number] [address] [place] [address], [place] [address] May, [facility] [address] [id number] [address] [place] [address], [place] [address] Apr, [facility] [address] [id number] [address] [place] [address], [place] [address] Mar, [facility] [address] [id number] [address] [place] [address], [place] [address] Mar, [facility] [address] [id number] [address] [place] [address], [place] [address] Mar, [facility] [address] [id number] [address] [place] [id number] Mar, [facility] [address] [id number] [address] [place] [address], [place] [address] Mar, [facility] [address] [id number] [address] [place] [id number] Mar, [facility] [address] [id number] [address] [place] [id number] Mar, [facility] [address] [id number] [address] [place] [phone] Mar, [facility] [address] [id number] [address] [place] [address], [place] [address] Mar, [facility] [address] [id number] [address] [place] [id number] Mar, [facility] [address] [id number] [address] [place] [id number] Mar, [facility] [address] [id number] [address] [place] [phone] Mar, [facility] [address] [id number] [address] [place] [phone] Feb, [facility] [address] [id number] [address] [place] [id number] Feb, [facility] [address] [id number] [address] [place] [id number] Feb, [facility] [address] [id number] [address] [place] [phone] Feb, [facility] [address] [id number] [address] [place] [id number] Feb, [facility] [address] [id number] [address] [place] [id number] Jan, [facility] [address] [id number] [address] [place] [phone] Dec, [facility] [address] [id number] [address] [place] [address], [place] [address] Dec, [facility] [address] [id number] [address] [place] [address], [place] [address] Dec, [facility] [address] [id number] [address] [place] [address], [place] [address] Nov, [facility] [address] [id number] [address] [place] [address], [place] [address] Nov, [facility] [address] [id number] [address] [place] [address], [place] [address] Nov, [facility] [address] [id number] [address] [place] [address], [place] [address] Oct, [facility] [address] [id number] [address] [place] [address], [place] [address] Oct, [facility] [address] [id number] [address] [place] [address], [place] [address] Oct, [facility] [address] [id number] [address] [place] [address], [place] [address] September, [facility] [address] [id number] [address] [place] [address], [place] [address] September, [facility] [address] [id number] [address] [place] [address], [place] [address] September, [facility] [address] [id number] [address] [place] [address], [place] [address] September, [facility] [address] [id number] [address] [place] [address], [place] [address] September, [facility] [address] [id number] [address] [place] [address], [place] [address] Aug, [facility] [address] [id number] [address] [place] [address], [place] [address] Aug, [facility] [address] [id number] [address] [place] [address], [place] [address] Aug, [facility] [address] [id number] [address] [place] [address], [place] [address] Jul, [facility] [address] [id number] [address] [place] [address], [place] [address] Jul, [facility] [address] [id number] [address] [place] [address], [place] [address] Jul, [facility] [address] [id number] [address] [place] [address], [place] [address] Jul, [facility] [address] [id number] [address] [place] [address], [place] [address] Jul, [facility] [address] [id number] [address] [place] [address], [place] [address] Jul, [facility] [address] [id number] [address] [place] [address], [place] [address] Jul, [facility] [address] [id number] [address] [place] [address], [place] [address] May, [facility] [address] [id number] [address] [place] [address], [place] [address] May, [facility] [address] [id number] [address] [place] [address], [place] [address] May, [facility] [address] [id number] [address] [place] [address], [place] [address] Apr, [facility] [address] [id number] [address] [place] [address], [place] [address] Apr, [facility] [address] [id number] [address] [place] [address], [place] [address] Apr, [facility] [address] [id number] [address] [place] [address], [place] [address] Apr, [facility] [address] [id number] [address] [place] [address], [place] [address] Apr, [facility] [address] [id number] [address] [place] [address], [place] [address] Mar, [facility] [address] [id number] [address] [place] [address], [place] [address] Mar, [facility] [address] [id number] [address] [place] [address], [place] [address] Mar, [facility] [address] [id number] [address] [place] [address], [place] [address] Mar, [facility] [address] [id number] [address] [place] [address], [place] [address] Feb, [facility] [address] [id number] [address] [place] [address], [place] [address] Feb, [facility] [address] [id number] [address] [place] [address], [place] [address] Feb, [facility] [address] [id number] [address] [place] [address], [place] [address] Feb, [facility] [address] [id number] [address] [place] [address], [place] [address] Feb, [facility] [address] [id number] [address] [place] [address], [place] [address] Jan, [facility] [address] [id number] [address] [place] [address], [place] [address] Dec, [facility] [address] [id number] [address] [place] [address], [place] [address] Dec, [facility] [address] [id number] [address] [place] [address], [place] [address] Dec, [facility] [address] [id number] [address] [place] [address], [place] [address] Nov, [facility] [address] [id number] [address] [place] [address], [place] [address] Nov, [facility] [address] [id number] [address] [place] [address], [place] [address] Nov, [facility] [address] [id number] [address] [place] [address], [place] [address] Oct, [facility] [address] [id number] [address] [place] [address], [place] [address] Oct, [facility] [address] [id number] [address] [place] [address], [place] [address] Oct, [facility] [address] [id number] [address] [place] [address], [place] [address] Oct, [facility] [address] [id number] [address] [place] [address], [place] [address] September, [facility] [address] [id number] [address] [place] [address], [place] [address] September, [facility] [address] [id number] [address] [place] [address], [place] [id number] Aug, [facility] [address] [id number] [address] [place] [address], [place] [id number] Aug, [facility] [address] [id number] [address] [place] [address], [place] [id number] Aug, [facility] [address] [id number] [address] [place] [address], [place] [id number] Aug, [facility] [address] [id number] [address] [place] [address], [place] [id number] Aug, [facility] [address] [id number] [address] [place] [address], [place] [id number] Aug, [facility] [address] [id number] [address] [place] [address], [place] [id number] Aug, [facility] [address] [id number] [address] [place] [address], [place] [id number] Jul, [facility] [address] [id number] [address] [place] [address], [place] [id number] Jul, [facility] [address] [id number] [address] [place] [id number] Jul, [facility] [address] [id number] [address] [place] [phone] May, [facility] [address] [id number] [address] [place] [phone] May, [facility] [address] [id number] [address] [place] [id number] May, [facility] [address] [id number] [address] [place] [phone] Apr, [facility] [address] [id number] [address] [place] [phone] Apr, [facility] [address] [id number] [address] [place] [phone] Mar, [facility] [address] [id number] [address] [place] [id number] Mar, [facility] [address] [id number] [address] [place] [phone] Mar, [facility] [address] [id number] [address] [place] [phone] Mar, [facility] [address] [id number] [address] [place] [phone] Mar, [facility] [address] [id number] [address] [place] [id number] Mar, [facility] [address] [id number] [address] [place] [phone] Feb, [facility] [address] [id number] [address] [place] [id number] Feb, [facility] [address] [id number] [address] [place] [id number] Feb, IMMUNIZATIONS No Known Immunizations SOCIAL HISTORY [...]
--- OUTSIDE RECORDS SUMMARY | 2020-01-03 07:53 | XMS REPORT ---
Author Author Tra SILVERIO Organization [facility] Address [address] [place] [address] Care Team Providers Care Police Justice Name Role Phone FERNY SILVERIO Unavailable PROBLEMS Type Condition ICD9-CM Code XLK78-HR Code Onset Dates Condition S tatus SNOMED Code Problem Insulin long-term use Z79.4 Active 231587585 Problem Hypertension I10 Active 7737705 3 Problem Diabetes E11.9 Active 80753805 Problem Hypoxia R09.02 Active 087038701 Problem Anxiety F41.9 Active 02801559 Problem Port catheter in place Z95.828 Active 076265353 Problem Pressure ulcer of other site, stage 3 L89.893 Active 128122689 Problem COPD (chronic obstructive pulmonary disease) J44.9 Active 80323091 Problem Type 2 diabetes mellitus wit h diabetic peripheral angiopathy without gangrene E11.51 Active 092280809 Problem Back pain M54.9 Active 636339024 Problem PAD (peripheral artery disease) I73.9 Active 674882265 Problem Lumbar radiculopathy, chronic M54.16 Active 921080988 Problem Recurrent major depressive disorder, in full remission F33.42 Active 371068555 Problem MCC current use of insulin Z79.4 Active 373197958 ALLERGIES No Information ENCOUNTERS Encounter Location Date Diagnosis [facility] [address] [facility] [id number] [address] [place] [address] Nov, Anxiety F41.9 [facility] [address] [facility] [id number] [address] [place] [id number] Nov, [facility] [address] [facility] [id number] [address] [place] [id number] Oct, Back pain M54.9 [facility] [address] [facility] [id number] [address] [place] [address] Oct, [place] [id number] [id number] [address] [place] [phone] Oct, [facility] [address] [id number] [address] [place] [phone] Oct, [facility] [address] [id number] [address] [place] [address] September, Back pain M54.9 [facility] [address] [id number] [address] [place] [address] September, [facility] [address] [id number] [address] [place] [id number] September, [facility] [address] [id number] [address] [place] [id number] September, [facility] [address] [id number] [address] [place] [phone] Aug, Back pain M54.9 [facility] [address] [id number] [address] [place] [phone] Aug, Anxiety F41.9 [facility] [address] [id number] [address] [place] [address] Aug, [facility] [address] [facility] [id number] [address] [place] [id number] Aug, Pressure ulcer of other site , stage 3 L89.893 and COPD (chronic obstructive pulmonary disease) J44.9 [facility] [address] [id number] [address] [place] [address] Aug, History of smoking Z87.891 [facility] [address] [id number] [address] [place] [address] Jul, Type 2 diabetes mellitus wit h diabetic peripheral angiopathy without gangrene E11.51 [facility] [address] [id number] [address] [place] [address] Jul, Back pain M54.9 [facility] [address] [id number] [address] [place] [id number] 19 Jul, 2018 Anxiety F41.9 [facility] [address] [id number] [address] [place] [phone] 18 Jul, 2018 [facility] [address] [id number] [address] [place] [id number] 13 Jul, 2018 Back pain M54.9 [facility] [address] [id number] [address] [place] [phone] 12 Jul, 2018 Back pain M54.9 [facility] [address] [id number] [address] [place] [id number] 11 Jul, 2018 Lumbar radiculopathy, chroni c M54.16 ; Hypertension I10 and Type 2 diabetes mellitus with diabetic peripheral angiopathy without gangrene E11.51 [facility] [address] [id number] [address] [place] [address] Jul, Back pain M54.9 [facility] [address] [id number] [address] [place] [address] Jul, Back pain M54.9 and Anxiety F41.9 [facility] [address] [id number] [address] [place] [id number] Jul, [facility] [address] [id number] [address] [place] [address] May, Back pain M54.9 and Anxiety F41.9 [facility] [address] [id number] [address] [place] [address] May, [facility] [address] [id number] [address] [place] [phone] Apr, Radiculopathy of lumbar rhiannon on M54.16 ; Back pain M54.9 and Anxiety F41.9 [facility] [address] [id number] [address] [place] [address] Apr, Diabetes E11.9 ; Muscle spas m M62.838 and Lumbar radiculopathy, chronic M54.16 [facility] [address] [id number] [address] [place] [phone] Apr, [facility] [address] [id number] [address] [place] [address] Apr, [facility] [address] [id number] [address] [place] [address] Mar, Back pain M54.9 and Anxiety F41.9 [facility] [address] [id number] [address] [place] [address] Mar, [facility] [address] [id number] [address] [place] [phone] Mar, [facility] [address] [id number] [address] [place] [address] Mar, [facility] [address] [id number] [address] [place] [address] Mar, Encounter for immunization Z 23 [facility] [address] [id number] [address] [place] [address] Feb, Back pain M54.9 and Anxiety F41.9 [facility] [address] [id number] [address] [place] [phone] 04 Feb, 2018 Back pain M54.9 and Anxiety F41.9 [facility] [address] [id number] [address] [place] [id number] Jan, Back pain M54.9 and Anxiety F41.9 [facility] [address] [id number] [address] [place] [phone] Jan, [facility] [address] [id number] [address] [place] [phone] Dec, [facility] [address] [id number] [address] [place] [address] Dec, Back pain M54.9 and Anxiety F41.9 [facility] [address] [id number] [address] [place] [address] 13 Dec, 2017 Diabetes E11.9 ; Type 2 diab etes mellitus with diabetic peripheral angiopathy without gangrene E11.51 ; Lumbar radiculopathy, chronic M54.16 ; COPD (chronic obstructive pulmonary disease) J44.9 and Anxiety F41.9 [facility] [address] [id number] [address] [place] [id number] Dec, Back pain M54.9 and Anxiety F41.9 [place] [address] [id number] [address] [place] [address] Nov, Back pain M54.9 and Anxiety F41.9 [place] [address] [id number] [address] [place] [phone] Oct, [place] [address] [id number] [address] [place] [phone] Oct, Back pain M54.9 and Anxiety F41.9 [place] [address] [id number] [address] [place] [address] September, Anxiety F41.9 and Back pain M54.9 [place] [address] [id number] [address] [place] [address] September, Diabetes E11.9 ; Hypertensio n I10 ; COPD (chronic obstructive pulmonary disease) J44.9 and Lumbar radiculopathy, chronic M54.16 [place] [address] [id number] [address] [place] [address] September, Anxiety F41.9 [facility] [address] [id number] [address] [place] [address] Aug, [facility] [address] [id number] [address] [place] [phone] Aug, [facility] [address] [id number] [address] [place] [id number] Aug, Anxiety F41.9 and Back pain M54.9 [facility] [address] [id number] [address] [place] [address] Aug, Medicare annual wellness vis it, initial [...] oil terminal current use of insulin Z79.4 [facility] [address] [id number] [address] [place] [id number] Jul, Back pain M54.9 [facility] [address] [id number] [address] [place] [address] Jul, [facility] [address] [id number] [address] [place] [address] Jul, Anxiety F41.9 and Back pain M54.9 [facility] [address] [id number] [address] [place] [address] Jul, Diabetes E11.9 [facility] [address] [id number] [address] [place] [address] May, [facility] [address] [id number] [address] [place] [phone] May, Diabetes E11.9 ; Anxiety F41 .9 ; Back pain M54.9 and COPD (chronic obstructive pulmonary disease) J44.9 [facility] [address] [id number] [address] [place] [address] May, Back pain M54.9 [facility] [address] [id number] [address] [place] [address] May, [facility] [address] [id number] [address] [place] [address] Apr, Back pain M54.9 [facility] [address] [id number] [address] [place] [address] 30 Mar, 2017 Back pain M54.9 [facility] [address] [id number] [address] [place] [id number] 20 Mar, 2017 [facility] [address] [id number] [address] [place] [phone] 16 Mar, 2017 [facility] [address] [id number] [address] [place] [phone] 14 Mar, 2017 Radiculopathy of lumbar rhiannon on M54.16 [facility] [address] [id number] [address] [place] [id number] 13 Mar, 2017 [facility] [address] [id number] [address] [place] [phone] 07 Mar, 2017 Encounter for immunization Z 23 and Lumbar radiculopathy, chronic M54.16 [facility] [address] [id number] [address] [place] [id number] Mar, Back pain M54.9 and Anxiety F41.9 [facility] [address] [facility] [id number] [address] [place] [id number] 10 Feb, 2017 Acute bilateral low back boy n with left-sided sciatica M54.42 and Acute bilateral low back pain with right-sided sciatica M54.41 [facility] [address] [id number] [address] [place] [id number] Feb, [facility] [address] [id number] [address] [place] [address] Feb, Back pain M54.9 [facility] [address] [id number] [address] [place] [id number] 05 Jan, 2017 Back pain M54.9 and Anxiety F41.9 [facility] [address] [id number] [address] [place] [address] 05 Jan, 2017 Diabetes E11.9 [facility] [address] [id number] [address] [place] [id number] 14 Dec, 2016 Diabetes E11.9 ; Back pain M 54.9 ; Anxiety F41.9 and Insulin long- term use Z79.4 [facility] [address] [id number] [address] [place] [phone] 09 Dec, 2016 Anxiety F41.9 [facility] [address] [id number] [address] [place] [address] Dec, Back pain M54.9 [facility] [address] [id number] [address] [place] [address] Nov, Back pain M54.9 [facility] [address] [id number] [address] [place] [address] Oct, Back pain M54.9 and Anxiety F41.9 [facility] [address] [facility] [id number] [address] [place] [phone] September, Back pain M54.9 [facility] [address] [id number] [address] [place] [id number] September, Back pain M54.9 and Anxiety F41.9 [facility] [address] [facility] [id number] [address] [place] [id number] Aug, Diabetes E11.9 ; Anxiety F41 .9 ; Back pain M54.9 and PAD (peripheral artery disease) I73.9 [facility] [address] [facility] [id number] [address] [place] [address] Aug, Anxiety F41.9 [facility] [address] [id number] [address] [place] [address] 14 Aug, 2016 Back pain M54.9 [facility] [address] [facility] [id number] [address] [place] [phone] 23 Jul, 2016 Back pain M54.9 [facility] [address] [facility] [id number] [address] [place] [address] Jul, Back pain M54.9 [facility] [address] [id number] [address] [place] [address] Jul, Back pain M54.9 [facility] [address] [id number] [address] [place] [phone] 16 Jul, 2016 Dorsalgia M54.9 [facility] [address] [id number] [address] [place] [address] Jul, [facility] [address] [id number] [address] [place] [address] May, Back pain M54.9 [facility] [address] [id number] [address] [place] [address] May, Diabetes E11.9 ; Anxiety F41 .9 ; Port catheter in place Z95.828 ; Encounter for immunization Z23 and Insulin long-term use Z79.4 [facility] [address] [id number] [address] [place] [address] Apr, Back pain M54.9 [facility] [address] [id number] [address] [place] [address] Apr, Back pain M54.9 [facility] [address] [id number] [address] [place] [address] Apr, [facility] [address] [id number] [address] [place] [address] Apr, Back pain M54.9 [facility] [address] [id number] [address] [place] [address] Mar, COPD (chronic obstructive pu lmonary disease) J44.9 [facility] [address] [id number] [address] [place] [address] Feb, [facility] [address] [id number] [address] [place] [address] 30 Jan, 2016 [facility] [address] [id number] [address] [place] [phone] Jan, [facility] [address] [id number] [address] [place] [phone] 07 Jan, 2016 [facility] [address] [id number] [address] [place] [address] Jan, [facility] [address] [id number] [address] [place] [address] Dec, Diabetes E11.9 ; Hypoxia R09 .02 and Back pain M54.9 [facility] [address] [id number] [address] [place] [address] Dec, [facility] [address] [id number] [address] [place] [phone] Nov, [facility] [address] [id number] [address] [place] [address] Oct, Anxiety F41.9 [facility] [address] [id number] [address] [place] [phone] Oct, Back pain M54.9 [facility] [address] [id number] [address] [place] [address] September, Back pain M54.9 [facility] [address] [id number] [address] [place] [address] September, Diabetes E11.9 [facility] [address] [id number] [address] [place] [address] September, [facility] [address] [id number] [address] [place] [address] September, Diabetes E11.9 ; Insulin sarai g-term use Z79.4 and Back pain M54.9 [facility] [address] [id number] [address] [place] [address] Aug, Back pain M54.9 [facility] [address] [id number] [address] [place] [address] Aug, Back pain M54.9 ; Anxiety F4 1.9 and Arthropathy, unspecified M12.9 [facility] [address] [facility] [id number] [address] [place] [address] Jul, Back pain M54.9 [facility] [address] [facility] [id number] [address] [place] [address] Jul, Anxiety F41.9 [facility] [address] [facility] [id number] [address] [place] [id number] Jul, Back pain M54.9 [facility] [address] [facility] [id number] [address] [place] [address] Jul, [facility] [address] [facility] [id number] [address] [place] [id number] Jul, [facility] [address] [facility] [id number] [address] [place] [address] May, Back pain M54.9 ; Diabetes E 11.9 ; Insulin long-term use Z79.4 ; COPD (chronic obstructive pulmonary disease) J44.9 and Hypertension I10 [facility] [address] [facility] [id number] [address] [place] [address] May, Chronic pain G89.29 [facility] [address] [facility] [id number] [address] [place] [id number] Apr, [facility] [address] [facility] [id number] [address] [place] [address] Apr, [facility] [address] [facility] [id number] [address] [place] [id number] Mar, [facility] [address] [facility] [id number] [address] [place] [id number] Mar, Encounter for immunization Z 23 and Diabetes E11.9 [facility] [address] [facility] [id number] [address] [place] [id number] Feb, [facility] [address] [facility] [id number] [address] [place] [address] Feb, [facility] [address] [id number] [address] [place] [phone] 23 Jan, 2015 [facility] [address] [id number] [address] [place] [id number] Jan, [facility] [address] [id number] [address] [place] [phone] Dec, [facility] [address] [id number] [address] [place] [id number] Dec, [facility] [address] [id number] [address] [place] [id number] Dec, Unspecified arthropathy, sit e unspecified 716.90 and Diabetes mellitus type 2, uncontrolled 250.02 [facility] [address] [id number] [address] [place] [address] Dec, [facility] [address] [id number] [address] [place] [address] Nov, [facility] [address] [id number] [address] [place] [address] Oct, [facility] [address] [id number] [address] [place] [address] September, [facility] [address] [id number] [address] [place] [id number] September, [facility] [address] [id number] [address] [place] [address] September, [facility] [address] [id number] [address] [place] [phone] September, [facility] [address] [id number] [address] [place] [id number] Aug, [facility] [address] [id number] [address] [place] [phone] Aug, [facility] [address] [id number] [address] [place] [id number] Jul, [facility] [address] [id number] [facility] [place] [id number] 18 Jul, 2014 [facility] [address] [id number] [address] [place] [address], [place] [id number] 16 Jul, 2014 [facility] [address] [id number] [facility] [place] [id number] 16 Jul, 2014 [facility] [address] [id number] [address] [place] [address], [place] [id number] 16 Jul, 2014 [facility] [address] [id number] [address] [place] [address], [place] [id number] 16 Jul, 2014 [facility] [address] [id number] [address] [place] [address], [place] [id number] 16 Jul, 2014 [facility] [address] [id number] [address] [place] [address], [place] [id number] 16 Jul, 2014 [facility] [address] [id number] [address] [place] [address], [place] [id number] 16 Jul, 2014 [facility] [address] [id number] [address] [place] [address], [place] [id number] 13 Jul, 2014 [facility] [address] [id number] [address] [place] [address], [place] [id number] 13 Jul, 2014 [facility] [address] [id number] [address] [place] [address], [place] [id number] 09 Jul, 2014 [facility] [address] [id number] [address] [place] [address], [place] [id number] 09 Jul, 2014 [facility] [address] [id number] [address] [place] [address], [place] [id number] 17 Jul, 2014 [facility] [address] [id number] [address] [place] [address], [place] [id number] 17 Jul, 2014 [facility] [address] [id number] [address] [place] [address], [place] [id number] 16 Jul, 2014 [facility] [address] [id number] [address] [place] [address], [place] [id number] 16 Jul, 2014 [facility] [address] [id number] [address] [place] [address], [place] [id number] 16 Jul, 2014 [facility] [address] [id number] [address] [place] [address], [place] [id number] 16 Jul, 2014 [facility] [address] [id number] [address] [place] [address], [place] [id number] 16 Jul, 2014 [facility] [address] [id number] [address] [place] [address], [place] [id number] 16 Jul, 2014 [facility] [address] [id number] [address] [place] [address], [place] [id number] 16 Jul, 2014 [facility] [address] [id number] [address] [place] [address], [place] [address] 16 Jul, 2014 [facility] [address] [id number] [address] [place] [address], [place] [address] 16 Jul, 2014 [facility] [address] [id number] [address] [place] [address], [place] [address] 16 Jul, 2014 [facility] [address] [id number] [address] [place] [address], [place] [address] 16 Jul, 2014 [facility] [address] [id number] [address] [place] [address], [place] [address] 16 Jul, 2014 [facility] [address] [id number] [address] [place] [address], [place] [address] Jul, 2014 [facility] [address] [id number] [address] [place] [address], [place] [address] Jul, 2014 [facility] [address] [id number] [address] [place] [address], [place] [address] May, [facility] [address] [id number] [address] [place] [address], [place] [address] May, [facility] [address] [id number] [address] [place] [address], [place] [address] May, [facility] [address] [id number] [address] [place] [address], [place] [address] May, [facility] [address] [id number] [address] [place] [address], [place] [address] May, [facility] [address] [id number] [address] [place] [address], [place] [address] May, [facility] [address] [id number] [address] [place] [address], [place] [address] May, [facility] [address] [id number] [address] [place] [address], [place] [address] May, [facility] [address] [id number] [address] [place] [address], [place] [address] May, [facility] [address] [id number] [address] [place] [address], [place] [address] May, [facility] [address] [id number] [address] [place] [address], [place] [address] Apr, [facility] [address] [id number] [address] [place] [address], [place] [address] Apr, [facility] [address] [id number] [address] [place] [address], [place] [address] Apr, [facility] [address] [id number] [address] [place] [address], [place] [address] Apr, [facility] [address] [id number] [address] [place] [address], [place] [address] Apr, [facility] [address] [id number] [address] [place] [address], [place] [address] Apr, [facility] [address] [id number] [address] [place] [address], [place] [address] Mar, [facility] [address] [id number] [address] [place] [address], [place] [address] Mar, [facility] [address] [id number] [address] [place] [id number] Mar, [facility] [address] [id number] [address] [place] [address], [place] [address] Mar, [facility] [address] [id number] [address] [place] [address] Mar, [facility] [address] [id number] [address] [place] [address], [place] [address] Mar, [facility] [address] [id number] [address] [place] [address], [place] [address] Mar, [facility] [address] [id number] [address] [place] [address], [place] [address] Mar, [facility] [address] [id number] [address] [place] [address], [place] [address] Mar, [facility] [address] [id number] [address] [place] [address] Mar, [facility] [address] [id number] [address] [place] [address], [place] [address] Mar, [facility] [address] [id number] [address] [place] [address], [place] [address] Feb, [facility] [address] [id number] [address] [place] [address] Feb, [facility] [address] [id number] [address] [place] [address], [place] [address] Feb, [facility] [address] [id number] [address] [place] [id number] 15 Feb, 2014 [facility] [address] [id number] [address] [place] [address] Feb, [facility] [address] [id number] [address] [place] [id number] Feb, [facility] [address] [id number] [address] [place] [address] Feb, [facility] [address] [id number] [facility] [place] [address] Feb, [facility] [address] [id number] [address] [place] [address], [place] [address] Feb, [facility] [address] [id number] [address] [place] [address], [place] [address] Feb, [facility] [address] [id number] [address] [place] [address], [place] [address] Jan, [facility] [address] [id number] [address] [place] [address], [place] [address] Jan, [facility] [address] [id number] [address] [place] [address], [place] [address] 16 Jan, 2014 [facility] [address] [id number] [address] [place] [address], [place] [address] 16 Jan, 2014 [facility] [address] [id number] [address] [place] [address], [place] [address] Jan, [facility] [address] [id number] [address] [place] [address], [place] [address] Jan, [facility] [address] [id number] [address] [place] [address], [place] [address] Jan, [facility] [address] [id number] [address] [place] [address], [place] [address] Dec, [facility] [address] [id number] [address] [place] [address], [place] [address] Dec, [facility] [address] [id number] [address] [place] [address], [place] [address] Dec, [facility] [address] [id number] [address] [place] [address], [place] [address] Dec, [facility] [address] [id number] [address] [place] [address], [place] [address] Dec, [facility] [address] [id number] [address] [place] [address], [place] [address] Dec, [facility] [address] [id number] [address] [place] [address], [place] [address] Dec, [facility] [address] [id number] [address] [place] [address], [place] [address] Dec, [facility] [address] [id number] [address] [place] [address], [place] [address] Oct, [facility] [address] [id number] [address] [place] [address], [place] [address] Oct, [facility] [address] [id number] [address] [place] [address], [place] [address] September, [facility] [address] [id number] [address] [place] [address], [place] [address] September, [facility] [address] [id number] [address] [place] [address], [place] [address] September, [facility] [address] [id number] [address] [place] [address], [place] [address] September, [facility] [address] [id number] [address] [place] [address], [place] [address] September, [facility] [address] [id number] [address] [place] [address], [place] [address] September, [facility] [address] [id number] [address] [place] [address], [place] [address] September, [facility] [address] [id number] [address] [place] [address], [place] [address] Aug, [facility] [address] [id number] [address] [place] [address], [place] [address] Aug, [facility] [address] [id number] [address] [place] [address], [place] [address] Jul, [facility] [address] [id number] [address] [place] [address], [place] [address] Jul, [facility] [address] [id number] [address] [place] [address], [place] [address] 17 Jul, 2013 [facility] [address] [id number] [address] [place] [address], [place] [address] 17 Jul, 2013 [facility] [address] [id number] [address] [place] [address], [place] [address] 14 Jul, 2013 [facility] [address] [id number] [address] [place] [address], [place] [address] 14 Jul, 2013 [facility] [address] [id number] [address] [place] [address], [place] [address] 03 Jul, 2013 [facility] [address] [id number] [address] [place] [address], [place] [address] 03 Jul, 2013 [facility] [address] [id number] [address] [place] [address], [place] [address] 15 May, 2013 [facility] [address] [id number] [address] [place] [address], [place] [address] 15 May, 2013 [facility] [address] [id number] [address] [place] [address], [place] [address] 14 May, 2013 [facility] [address] [id number] [address] [place] [address], [place] [address] 14 May, 2013 [facility] [address] [id number] [address] [place] [address], [place] [address] 18 Apr, 2013 [facility] [address] [id number] [address] [place] [address], [place] [address] Mar, [facility] [address] [id number] [address] [place] [address], [place] [address] Mar, [facility] [address] [id number] [address] [place] [address], [place] [address] Mar, [facility] [address] [id number] [address] [place] [address], [place] [address] Mar, [facility] [address] [id number] [address] [place] [address] [address] Mar, [facility] [address] [id number] [address] [place] [address], [place] [address] Mar, [facility] [address] [id number] [address] [place] [address], [place] [address] Mar, [facility] [address] [id number] [address] [place] [address], [place] [address] Mar, [facility] [address] [id number] [address] [place] [address], [place] [address] Mar, [facility] [address] [id number] [address] [place] [address], [place] [address] Mar, [facility] [address] [id number] [address] [place] [address], [place] [address] Mar, [facility] [address] [id number] [address] [place] [address], [place] [address] Mar, [facility] [address] [id number] [address] [place] [address], [place] [address] Feb, [facility] [address] [id number] [address] [place] [address] Feb, [facility] [address] [id number] [address] [place] [address] Feb, [facility] [address] [id number] [address] [place] [address] Feb, [facility] [address] [id number] [address] [place] [address] Feb, [facility] [address] [id number] [address] [place] [address], [place] [address] Jan, [facility] [address] [id number] [address] [place] [address] Dec, [facility] [address] [id number] [address] [place] [address] Dec, [facility] [address] [id number] [address] [place] [address], [place] [address] Dec, [facility] [address] [id number] [address] [place] [address], [place] [address] Nov, [facility] [address] [id number] [address] [place] [address], [place] [address] Nov, [facility] [address] [id number] [address] [place] [address], [place] [address] Nov, [facility] [address] [id number] [address] [place] [address], [place] [address] Oct, [facility] [address] [id number] [address] [place] [address], [place] [address] Oct, [facility] [address] [id number] [address] [place] [address], [place] [address] Oct, [facility] [address] [id number] [address] [place] [address], [place] [address] September, [facility] [address] [id number] [address] [place] [address], [place] [address] September, [facility] [address] [id number] [address] [place] [address], [place] [address] September, [facility] [address] [id number] [address] [place] [address], [place] [address] September, [facility] [address] [id number] [address] [place] [address], [place] [address] September, [facility] [address] [id number] [address] [place] [address], [place] [address] Aug, [facility] [address] [id number] [address] [place] [address], [place] [address] Aug, [facility] [address] [id number] [address] [place] [address], [place] [address] Aug, [facility] [address] [id number] [address] [place] [address], [place] [address] Jul, [facility] [address] [id number] [address] [place] [address], [place] [address] Jul, [facility] [address] [id number] [address] [place] [address], [place] [address] Jul, [facility] [address] [id number] [address] [place] [address], [place] [address] Jul, [facility] [address] [id number] [address] [place] [address], [place] [address] Jul, [facility] [address] [id number] [address] [place] [address], [place] [address] Jul, [facility] [address] [id number] [address] [place] [address], [place] [address] Jul, [facility] [address] [id number] [address] [place] [address], [place] [address] May, [facility] [address] [id number] [address] [place] [address], [place] [address] May, [facility] [address] [id number] [address] [place] [address], [place] [address] May, [facility] [address] [id number] [address] [place] [address], [place] [address] Apr, [facility] [address] [id number] [address] [place] [address], [place] [address] Apr, [facility] [address] [id number] [address] [place] [address], [place] [address] Apr, [facility] [address] [id number] [address] [place] [address], [place] [address] Apr, [facility] [address] [id number] [address] [place] [address], [place] [address] Apr, [facility] [address] [id number] [address] [place] [address], [place] [address] 29 Mar, 2012 [facility] [address] [id number] [address] [place] [address] Mar, [facility] [address] [id number] [address] [place] [address], [place] [address] Mar, [facility] [address] [id number] [address] [place] [address], [place] [address] Mar, [facility] [address] [id number] [address] [place] [address], [place] [address] Feb, [facility] [address] [id number] [address] [place] [address], [place] [address] Feb, [facility] [address] [id number] [address] [place] [address], [place] [address] Feb, [facility] [address] [id number] [address] [place] [address], [place] [address] Feb, [facility] [address] [id number] [address] [place] [address], [place] [address] Feb, [facility] [address] [id number] [address] [place] [address], [place] [address] Jan, [facility] [address] [id number] [address] [place] [address], [place] [address] Dec, [facility] [address] [id number] [address] [place] [address], [place] [address] Dec, [facility] [address] [id number] [address] [place] [address], [place] [address] Dec, [facility] [address] [id number] [address] [place] [address] Nov, [facility] [address] [id number] [address] [place] [address], [place] [address] Nov, [facility] [address] [id number] [address] [place] [id number] Nov, [facility] [address] [id number] [address] [place] [address], [place] [address] Oct, [facility] [address] [id number] [address] [place] [address], [place] [address] 19 Oct, 2011 [facility] [address] [id number] [address] [place] [address], [place] [address] 18 Oct, 2011 [facility] [address] [id number] [address] [place] [address], [place] [address] Oct, [facility] [address] [id number] [address] [place] [address], [place] [address] September, [facility] [address] [id number] [address] [place] [address], [place] [address] September, [facility] [address] [id number] [address] [place] [address], [place] [address] 30 Aug, 2011 [facility] [address] [id number] [address] [place] [address], [place] [address] Aug, [facility] [address] [id number] [address] [place] [address], [place] [address] Aug, [facility] [address] [id number] [address] [place] [address], [place] [address] Aug, [facility] [address] [id number] [address] [place] [address], [place] [address] Aug, [facility] [address] [id number] [address] [place] [address], [place] [address] Aug, [facility] [address] [id number] [address] [place] [address], [place] [address] Aug, [facility] [address] [id number] [address] [place] [address], [place] [address] Jul, [facility] [address] [id number] [address] [place] [address], [place] [address] Jul, [facility] [address] [id number] [address] [place] [address], [place] [phone] 14 Jul, 2011 [facility] [address] [id number] [address] [place] [address], [place] [phone] May, [facility] [address] [id number] [address] [place] [phone] May, [facility] [address] [id number] [address] [place] [phone] May, [facility] [address] [id number] [address] [place] [phone] Apr, [facility] [address] [id number] [address] [place] [phone] Apr, [facility] [address] [id number] [address] [place] [phone] Mar, [facility] [address] [id number] [address] [place] [phone] Mar, [facility] [address] [id number] [address] [place] [phone] Mar, [facility] [address] [id number] [address] [place] [phone] Mar, [facility] [address] [id number] [address] [place] [phone] Mar, [facility] [address] [id number] [address] [place] [phone] Mar, [facility] [address] [id number] [address] [place] [phone] Feb, [facility] [address] [id number] [address] [place] [id number] Feb, [facility] [address] [id number] [address] [place] [phone] Feb, IMMUNIZATIONS No Known Immunizations SOCIAL HISTORY [...]
--- OUTSIDE RECORDS SUMMARY | 2020-01-03 07:54 | XMS REPORT ---
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 Name Role Phone FERNY SILVERIO Unavailable PROBLEMS Type Condition ICD9-CM Code [id number] Code Onset Dates Condition S tatus SNOMED Code Problem Insulin long-term use Z79.4 Active 592203470 Problem Hypertension I10 Active 6312726 3 Problem Diabetes E11.9 Active 52077012 Problem Hypoxia R09.02 Active 748592535 Problem Anxiety F41.9 Active 91200455 Problem Port catheter in place Z95.828 Active 335155084 Problem Pressure ulcer of other site, stage 3 L89.893 Active 451416114 Problem COPD (chronic obstructive pulmonary disease) J44.9 Active 40680355 Problem Type 2 diabetes mellitus wit h diabetic peripheral angiopathy without gangrene E11.51 Active 018161119 Problem Back pain M54.9 Active 764308247 Problem PAD (peripheral artery disease) I73.9 Active 407762835 Problem Lumbar radiculopathy, chronic M54.16 Active 901366488 Problem Recurrent major depressive disorder, in full remission F33.42 Active 537093576 Problem snf current use of insulin Z79.4 Active 006520092 ALLERGIES No Information ENCOUNTERS Encounter Location Date Diagnosis [facility] [address] [facility] [id number] [address] [place] [phone] Nov, [facility] [address] [facility] [id number] [address] [place] [phone] Oct, Back pain M54.9 [facility] [address] [facility] [id number] [address] [place] [address] Oct, [facility] [address] [facility] [id number] [address] [place] [phone] Oct, [facility] [address] [id number] [address] [place] [id number] Oct, [facility] [address] [id number] [address] [place] [phone] September, Back pain M54.9 [facility] [address] [id number] [address] [place] [phone] September, [facility] [address] [id number] [address] [place] [address] September, [facility] [address] [id number] [address] [place] [phone] September, [facility] [address] [id number] [address] [place] [id number] Aug, Back pain M54.9 [facility] [address] [id number] [address] [place] [phone] Aug, Anxiety F41.9 [facility] [address] [id number] [address] [place] [phone] Aug, [facility] [address] [id number] [address] [place] [address] Aug, Pressure ulcer of other site , stage 3 L89.893 and COPD (chronic obstructive pulmonary disease) J44.9 [facility] [address] [id number] [address] [place] [address] Aug, History of smoking Z87.891 [facility] [address] [id number] [address] [place] [id number] Jul, Type 2 diabetes mellitus wit h diabetic peripheral angiopathy without gangrene E11.51 [facility] [address] [id number] [address] [place] [id number] Jul, Back pain M54.9 [facility] [address] [id number] [address] [place] [id number] Jul, Anxiety F41.9 [facility] [address] [id number] [address] [place] [phone] 18 Jul, 2018 [facility] [address] [id number] [address] [place] [phone] Jul, Back pain M54.9 [facility] [address] [facility] [id number] [address] [place] [id number] Jul, Back pain M54.9 [facility] [address] [facility] [id number] [address] [place] [phone] Jul, Lumbar radiculopathy, chroni c M54.16 ; Hypertension I10 and Type 2 diabetes mellitus with diabetic peripheral angiopathy without gangrene E11.51 [facility] [address] [id number] [address] [place] [address] Jul, Back pain M54.9 [place] [facility] [address] [facility] [id number] [address] [place] [address] Jul, Back pain M54.9 and Anxiety F41.9 [place] [place] [address] [id number] [address] [place] [phone] Jul, [facility] [address] [facility] [id number] [address] [place] [phone] May, Back pain M54.9 and Anxiety F41.9 [place] [place] [address] [facility] [id number] [address] [place] [address] May, [facility] [address] [facility] [id number] [address] [place] [address] Apr, Radiculopathy of lumbar rhiannon on M54.16 ; Back pain M54.9 and Anxiety F41.9 [facility] [address] [facility] [id number] [address] [place] [id number] Apr, Diabetes E11.9 ; Muscle spas m M62.838 and Lumbar radiculopathy, chronic M54.16 [facility] [address] [facility] [id number] [address] [place] [address] Apr, [facility] [address] [id number] [address] [place] [id number] Apr, [facility] [address] [id number] [address] [place] [id number] Mar, Back pain M54.9 and Anxiety F41.9 [facility] [address] [id number] [address] [place] [phone] Mar, [facility] [address] [id number] [address] [place] [phone] Mar, [facility] [address] [id number] [address] [place] [phone] Mar, [facility] [address] [id number] [address] [place] [phone] Mar, Encounter for immunization Z 23 [facility] [address] [id number] [address] [place] [phone] Feb, Back pain M54.9 and Anxiety F41.9 [facility] [address] [id number] [address] [place] [id number] Feb, Back pain M54.9 and Anxiety F41.9 [facility] [address] [facility] [id number] [address] [place] [address] Jan, Back pain M54.9 and Anxiety F41.9 [facility] [address] [id number] [address] [place] [phone] Jan, [facility] [address] [id number] [address] [place] [phone] Dec, [facility] [address] [id number] [address] [place] [address] Dec, Back pain M54.9 and Anxiety F41.9 [facility] [address] [facility] [id number] [address] [place] [address] Dec, Diabetes E11.9 ; Type 2 diab etes mellitus with diabetic peripheral angiopathy without gangrene E11.51 ; Lumbar radiculopathy, chronic M54.16 ; COPD (chronic obstructive pulmonary disease) J44.9 and Anxiety F41.9 [facility] [address] [id number] [address] [place] [address] Dec, Back pain M54.9 and Anxiety F41.9 [facility] [address] [id number] [address] [place] [id number] Nov, Back pain M54.9 and Anxiety F41.9 [facility] [address] [id number] [address] [place] [phone] Oct, [facility] [address] [id number] [address] [place] [phone] Oct, Back pain M54.9 and Anxiety F41.9 [place] [address] [id number] [address] [place] [address] September, Anxiety F41.9 and Back pain M54.9 [facility] [address] [id number] [address] [place] [address] September, Diabetes E11.9 ; Hypertensio n I10 ; COPD (chronic obstructive pulmonary disease) J44.9 and Lumbar radiculopathy, chronic M54.16 [facility] [address] [id number] [address] [place] [address] September, Anxiety F41.9 [facility] [address] [id number] [address] [place] [phone] Aug, [facility] [address] [id number] [address] [place] [id number] Aug, [facility] [address] [id number] [address] [place] [id number] Aug, Anxiety F41.9 and Back pain M54.9 [facility] [address] [id number] [address] [place] [address] Aug, Medicare annual wellness vis it, initial [...] and snf current use of insulin Z79.4 [facility] [address] [id number] [address] [place] [phone] Jul, Back pain M54.9 [facility] [address] [id number] [address] [place] [phone] Jul, [facility] [address] [id number] [address] [place] [id number] Jul, Anxiety F41.9 and Back pain M54.9 [facility] [address] [id number] [address] [place] [address] Jul, Diabetes E11.9 [facility] [address] [id number] [address] [place] [phone] May, [facility] [address] [id number] [address] [place] [address] May, Diabetes E11.9 ; Anxiety F41 .9 ; Back pain M54.9 and COPD (chronic obstructive pulmonary disease) J44.9 [facility] [address] [id number] [address] [place] [phone] May, Back pain M54.9 [facility] [address] [id number] [address] [place] [address] May, [facility] [address] [id number] [address] [place] [address] Apr, Back pain M54.9 [facility] [address] [id number] [address] [place] [id number] Mar, Back pain M54.9 [facility] [address] [id number] [address] [place] [phone] 20 Mar, 2017 [facility] [address] [facility] [id number] [address] [place] [phone] 16 Mar, 2017 [facility] [address] [id number] [address] [place] [id number] 14 Mar, 2017 Radiculopathy of lumbar rhiannon on M54.16 [facility] [address] [id number] [address] [place] [phone] 13 Mar, 2017 [facility] [address] [facility] [id number] [address] [place] [id number] 07 Mar, 2017 Encounter for immunization Z 23 and Lumbar radiculopathy, chronic M54.16 [facility] [address] [facility] [id number] [address] [place] [phone] 01 Mar, 2017 Back pain M54.9 and Anxiety F41.9 [facility] [address] [facility] [id number] [address] [place] [id number] 10 Feb, 2017 Acute bilateral low back boy n with left-sided sciatica M54.42 and Acute bilateral low back pain with right-sided sciatica M54.41 [facility] [address] [facility] [id number] [address] [place] [phone] Feb, [facility] [address] [facility] [id number] [address] [place] [id number] Feb, Back pain M54.9 [facility] [address] [facility] [id number] [address] [place] [phone] 05 Jan, 2017 Back pain M54.9 and Anxiety F41.9 [facility] [address] [facility] [id number] [address] [place] [phone] 05 Jan, 2017 Diabetes E11.9 [facility] [address] [facility] [id number] [address] [place] [id number] 14 Dec, 2016 Diabetes E11.9 ; Back pain M 54.9 ; Anxiety F41.9 and Insulin long- term use Z79.4 [facility] [address] [id number] [address] [place] [phone] Dec, Anxiety F41.9 [facility] [address] [id number] [address] [place] [phone] Dec, Back pain M54.9 [facility] [address] [id number] [address] [place] [address] Nov, Back pain M54.9 [facility] [address] [id number] [address] [place] [id number] Oct, Back pain M54.9 and Anxiety F41.9 [facility] [address] [id number] [address] [place] [address] September, Back pain M54.9 [facility] [address] [id number] [address] [place] [address] September, Back pain M54.9 and Anxiety F41.9 [facility] [address] [id number] [address] [place] [address] Aug, Diabetes E11.9 ; Anxiety F41 .9 ; Back pain M54.9 and PAD (peripheral artery disease) I73.9 [facility] [address] [id number] [address] [place] [address] Aug, Anxiety F41.9 [facility] [address] [id number] [address] [place] [id number] Aug, Back pain M54.9 [facility] [address] [id number] [address] [place] [phone] Jul, Back pain M54.9 [facility] [address] [id number] [address] [place] [phone] Jul, Back pain M54.9 [facility] [address] [id number] [address] [place] [id number] Jul, Back pain M54.9 [facility] [address] [id number] [address] [place] [phone] 16 Jul, 2016 Dorsalgia M54.9 [facility] [address] [id number] [address] [place] [phone] 14 Jul, 2016 [facility] [address] [id number] [address] [place] [address] May, Back pain M54.9 [facility] [address] [id number] [address] [place] [phone] May, Diabetes E11.9 ; Anxiety F41 .9 ; Port catheter in place Z95.828 ; Encounter for immunization Z23 and Insulin long-term use Z79.4 [facility] [address] [id number] [address] [place] [id number] Apr, Back pain M54.9 [facility] [address] [id number] [address] [place] [phone] Apr, Back pain M54.9 [facility] [address] [id number] [address] [place] [address] Apr, [facility] [address] [id number] [address] [place] [phone] Apr, Back pain M54.9 [facility] [address] [facility] [id number] [address] [place] [phone] Mar, COPD (chronic obstructive pu lmonary disease) J44.9 [facility] [address] [id number] [address] [place] [phone] Feb, [facility] [address] [id number] [address] [place] [id number] 30 Jan, 2016 [facility] [address] [id number] [address] [place] [phone] Jan, [facility] [address] [id number] [address] [place] [id number] Jan, [facility] [address] [id number] [address] [place] [address] Jan, [facility] [address] [id number] [address] [place] [id number] Dec, Diabetes E11.9 ; Hypoxia R09 .02 and Back pain M54.9 [facility] [address] [id number] [address] [place] [id number] Dec, [facility] [address] [id number] [address] [place] [phone] Nov, [facility] [address] [id number] [address] [place] [id number] Oct, Anxiety F41.9 [facility] [address] [id number] [address] [place] [address] Oct, Back pain M54.9 [facility] [address] [id number] [address] [place] [address] September, Back pain M54.9 [facility] [address] [id number] [address] [place] [phone] September, Diabetes E11.9 [facility] [address] [id number] [address] [place] [address] September, [facility] [address] [id number] [address] [place] [address] September, Diabetes E11.9 ; Insulin sarai g-term use Z79.4 and Back pain M54.9 [facility] [address] [id number] [address] [place] [address] Aug, Back pain M54.9 [facility] [address] [id number] [address] [place] [id number] Aug, Back pain M54.9 ; Anxiety F4 1.9 and Arthropathy, unspecified M12.9 [facility] [address] [id number] [address] [place] [address] Jul, Back pain M54.9 [facility] [address] [id number] [address] [place] [id number] Jul, Anxiety F41.9 [facility] [address] [facility] [id number] [address] [place] [id number] Jul, Back pain M54.9 [facility] [address] [facility] [id number] [address] [place] [phone] Jul, [facility] [address] [facility] [id number] [address] [place] [id number] Jul, [facility] [address] [id number] [address] [place] [phone] May, Back pain M54.9 ; Diabetes E 11.9 ; Insulin long-term use Z79.4 ; COPD (chronic obstructive pulmonary disease) J44.9 and Hypertension I10 [facility] [address] [facility] [id number] [address] [place] [phone] May, Chronic pain G89.29 [facility] [address] [facility] [id number] [address] [place] [phone] Apr, [facility] [address] [facility] [id number] [address] [place] [phone] Apr, [facility] [address] [facility] [id number] [address] [place] [id number] Mar, [facility] [address] [facility] [id number] [address] [place] [phone] Mar, Encounter for immunization Z 23 and Diabetes E11.9 [facility] [address] [id number] [address] [place] [address] Feb, [facility] [address] [facility] [id number] [address] [place] [id number] Feb, [facility] [address] [facility] [id number] [address] [place] [phone] Jan, [facility] [address] [facility] [id number] [address] [place] [phone] Jan, [facility] [address] [id number] [address] [place] [phone] Dec, [facility] [address] [id number] [address] [place] [phone] Dec, [facility] [address] [id number] [address] [place] [id number] Dec, Unspecified arthropathy, sit e unspecified 716.90 and Diabetes mellitus type 2, uncontrolled 250.02 [facility] [address] [id number] [address] [place] [phone] Dec, [facility] [address] [id number] [address] [place] [phone] Nov, [facility] [address] [id number] [address] [place] [phone] Oct, [facility] [address] [id number] [address] [place] [phone] September, [facility] [address] [id number] [address] [place] [phone] September, [facility] [address] [id number] [address] [place] [phone] September, [facility] [address] [id number] [address] [place] [phone] September, [facility] [address] [id number] [address] [place] [phone] Aug, [facility] [address] [id number] [address] [place] [phone] Aug, [facility] [address] [id number] [address] [place] [phone] Jul, [facility] [address] [id number] [address] [place] [phone] Jul, [facility] [address] [id number] [address] [place] [address], [place] [id number] 16 Jul, 2014 [facility] [address] [id number] [address] [place] [address], [place] [id number] 16 Jul, 2014 [facility] [address] [id number] [address] [place] [address], [place] [id number] 16 Jul, 2014 [facility] [address] [id number] [address] [place] [address], [place] [id number] 16 Jul, 2014 [facility] [address] [id number] [address] [place] [address], [place] [id number] 16 Jul, 2014 [facility] [address] [id number] [address] [place] [address], [place] [id number] 16 Jul, 2014 [facility] [address] [id number] [address] [place] [address], [place] [id number] 16 Jul, 2014 [facility] [address] [id number] [address] [place] [address], [place] [id number] 13 Jul, 2014 [facility] [address] [id number] [address] [place] [address], [place] [id number] 13 Jul, 2014 [facility] [address] [id number] [address] [place] [address], [place] [id number] 09 Jul, 2014 [facility] [address] [id number] [address] [place] [address], [place] [id number] 09 Jul, 2014 [facility] [address] [id number] [address] [place] [address], [place] [id number] 17 Jul, 2014 [facility] [address] [id number] [address] [place] [address], [place] [id number] 17 Jul, 2014 [facility] [address] [id number] [address] [place] [address], [place] [id number] 16 Jul, 2014 [facility] [address] [id number] [address] [place] [address], [place] [id number] 16 Jul, 2014 [facility] [address] [id number] [address] [place] [address], [place] [id number] 16 Jul, 2014 [facility] [address] [id number] [address] [place] [address], [place] [id number] 16 Jul, 2014 [facility] [address] [id number] [address] [place] [address], [place] [id number] 16 Jul, 2014 [facility] [address] [id number] [address] [place] [address], [place] [id number] 16 Jul, 2014 [facility] [address] [id number] [address] [place] [address], [place] [id number] Jul, 2014 [facility] [address] [id number] [address] [place] [address], [place] [id number] Jul, 2014 [facility] [address] [id number] [address] [place] [address], [place] [id number] 16 Jul, 2014 [facility] [address] [id number] [address] [place] [address], [place] [id number] Jul, 2014 [facility] [address] [id number] [address] [place] [address], [place] [id number] Jul, 2014 [facility] [address] [id number] [address] [place] [address], [place] [id number] Jul, 2014 [facility] [address] [id number] [address] [place] [address], [place] [id number] 16 Jul, 2014 [facility] [address] [id number] [address] [place] [address], [place] [id number] Jul, 2014 [facility] [address] [id number] [address] [place] [id number] May, [facility] [address] [id number] [address] [place] [address], [place] [id number] May, [facility] [address] [id number] [address] [place] [id number] May, [facility] [address] [id number] [address] [place] [id number] May, [facility] [address] [id number] [address] [place] [address], [place] [id number] May, [facility] [address] [id number] [address] [place] [address], [place] [id number] May, [facility] [facility] [address] [id number] [address] [place] [address], [place] [address] May, [facility] [address] [id number] [address] [place] [address], [place] [address] May, [facility] [address] [id number] [address] [place] [address], [place] [address] May, [facility] [address] [id number] [address] [place] [address], [place] [address] May, [facility] [address] [id number] [address] [place] [address], [place] [address] Apr, [facility] [address] [id number] [address] [place] [address], [place] [address] Apr, [facility] [address] [id number] [address] [place] [address], [place] [address] Apr, [facility] [address] [id number] [address] [place] [address], [place] [address] Apr, [facility] [address] [id number] [address] [place] [address], [place] [address] Apr, [facility] [address] [id number] [address] [place] [address], [place] [address] Apr, [facility] [address] [id number] [address] [place] [address], [place] [address] Mar, [facility] [address] [id number] [address] [place] [address], [place] [address] Mar, [facility] [address] [id number] [address] [place] [address], [place] [address] Mar, [facility] [address] [id number] [address] [address] Mar, [facility] [address] [id number] [address] [place] [address], [place] [address] Mar, [facility] [address] [id number] [address] [place] [address], [place] [address] Mar, [facility] [address] [id number] [address] [place] [address], [place] [address] Mar, [facility] [address] [id number] [address] [place] [address] Mar, [facility] [address] [id number] [address] [place] [address], [place] [address] Mar, [facility] [address] [id number] [address] [place] [address] Mar, [facility] [address] [id number] [address] [place] [address], [place] [address] Mar, [facility] [address] [id number] [address] [place] [address], [place] [address] Feb, [facility] [address] [id number] [address] [place] [address], [place] [address] 30 Feb, 2014 [facility] [address] [id number] [address] [place] [address] Feb, [facility] [address] [id number] [address] [place] [id number] 15 Feb, 2014 [facility] [address] [id number] [address] [place] [address] Feb, [facility] [address] [id number] [address] [place] [address], [place] [address] Feb, [facility] [address] [id number] [address] [place] [address], [place] [address] Feb, [facility] [address] [id number] [address] [place] [id number] Feb, [facility] [address] [id number] [facility] [place] [address] Feb, [facility] [address] [id number] [address] [place] [address], [place] [address] Feb, [facility] [address] [id number] [address] [place] [address], [place] [address] Jan, [facility] [address] [id number] [address] [place] [address], [place] [address] Jan, [facility] [address] [id number] [address] [place] [address], [place] [address] 16 Jan, 2014 [facility] [address] [id number] [address] [place] [address], [place] [address] Jan, [facility] [address] [id number] [address] [place] [address], [place] [address] Jan, [facility] [address] [id number] [address] [place] [address], [place] [address] Jan, [facility] [address] [id number] [address] [place] [address], [place] [address] Jan, [facility] [address] [id number] [address] [place] [address], [place] [address] Dec, [facility] [address] [id number] [address] [place] [address], [place] [address] Dec, [facility] [address] [id number] [address] [place] [address], [place] [address] Dec, [facility] [address] [id number] [address] [place] [address], [place] [address] Dec, [facility] [address] [id number] [address] [place] [address], [place] [address] Dec, [facility] [address] [id number] [address] [place] [address], [place] [address] Dec, [facility] [address] [id number] [address] [place] [address], [place] [address] Dec, [facility] [address] [id number] [address] [place] [address], [place] [address] Dec, [facility] [address] [id number] [address] [place] [address], [place] [address] Oct, [facility] [address] [id number] [address] [place] [address], [place] [address] Oct, [facility] [address] [id number] [address] [place] [address], [place] [address] September, [facility] [address] [id number] [address] [place] [address], [place] [address] September, [facility] [address] [id number] [address] [place] [address], [place] [address] September, [facility] [address] [id number] [address] [place] [address], [place] [address] September, [facility] [address] [id number] [address] [place] [address], [place] [address] September, [facility] [address] [id number] [address] [place] [address], [place] [address] September, [facility] [address] [id number] [address] [place] [address], [place] [address] September, [facility] [address] [id number] [address] [place] [address], [place] [address] Aug, [facility] [address] [id number] [address] [place] [address], [place] [address] Aug, [facility] [address] [id number] [address] [place] [address], [place] [address] Jul, [facility] [address] [id number] [address] [place] [address], [place] [address] Jul, [facility] [address] [id number] [address] [place] [address], [place] [address] Jul, [facility] [address] [id number] [address] [place] [address], [place] [address] 17 Jul, 2013 [facility] [address] [id number] [address] [place] [address], [place] [address] 14 Jul, 2013 [facility] [address] [id number] [address] [place] [address], [place] [address] 14 Jul, 2013 [facility] [address] [id number] [address] [place] [address], [place] [address] 03 Jul, 2013 [facility] [address] [id number] [address] [place] [address], [place] [address] Jul, [facility] [address] [id number] [address] [place] [address], [place] [address] 15 May, 2013 [facility] [address] [id number] [address] [place] [address], [place] [address] May, [facility] [address] [id number] [address] [place] [address], [place] [address] May, [facility] [address] [id number] [address] [place] [address], [place] [address] May, [facility] [address] [id number] [address] [place] [address], [place] [address] Apr, [facility] [address] [id number] [address] [place] [address], [place] [address] Mar, [facility] [address] [id number] [address] [place] [address], [place] [address] Mar, [facility] [address] [id number] [address] [place] [address], [place] [address] Mar, [facility] [address] [id number] [address] [place] [address], [place] [address] Mar, [facility] [address] [id number] [address] [place] [address], [place] [address] Mar, [facility] [address] [id number] [address] [place] [address], [place] [address] Mar, [facility] [address] [id number] [address] [place] [address], [place] [address] Mar, [facility] [address] [id number] [address] [place] [address], [place] [address] Mar, [facility] [address] [id number] [address] [place] [address], [place] [address] Mar, [facility] [address] [id number] [address] [place] [address], [place] [address] Mar, [facility] [address] [id number] [address] [place] [address], [place] [address] Mar, [facility] [address] [id number] [address] [place] [address], [place] [address] Mar, [facility] [address] [id number] [address] [place] [address], [place] [address] Feb, [facility] [address] [id number] [address] [place] [address] Feb, [facility] [address] [id number] [address] [place] [address], [place] [address] Feb, [facility] [address] [id number] [address] [place] [id number] Feb, [facility] [address] [id number] [address] [place] [address] Feb, [facility] [address] [id number] [address] [place] [address] Jan, [facility] [address] [id number] [address] [place] [address], [place] [address] Dec, [facility] [address] [id number] [address] [place] [address] Dec, [facility] [address] [id number] [address] [place] [address] Dec, [facility] [address] [id number] [address] [place] [address] Nov, [facility] [address] [id number] [address] [place] [address], [place] [address] Nov, [facility] [address] [id number] [address] [place] [address], [place] [address] Nov, [facility] [address] [id number] [address] [place] [address], [place] [address] Oct, [facility] [address] [id number] [address] [place] [address], [place] [address] Oct, [facility] [address] [id number] [address] [place] [address], [place] [address] Oct, [facility] [address] [id number] [address] [place] [address], [place] [address] September, [facility] [address] [id number] [address] [place] [address], [place] [address] September, [facility] [address] [id number] [address] [place] [address], [place] [address] September, [facility] [address] [id number] [address] [place] [address], [place] [address] September, [facility] [address] [id number] [address] [place] [address], [place] [address] September, [facility] [address] [id number] [address] [place] [address], [place] [address] Aug, [facility] [address] [id number] [address] [place] [address], [place] [address] Aug, [facility] [address] [id number] [address] [place] [address], [place] [address] Aug, [facility] [address] [id number] [address] [place] [address], [place] [address] Jul, [facility] [address] [id number] [address] [place] [address], [place] [address] Jul, [facility] [address] [id number] [address] [place] [address], [place] [address] Jul, [facility] [address] [id number] [address] [place] [address], [place] [address] Jul, [facility] [address] [id number] [address] [place] [address], [place] [address] Jul, [facility] [address] [id number] [address] [place] [address], [place] [address] Jul, [facility] [address] [id number] [address] [place] [address], [place] [address] Jul, [facility] [address] [id number] [address] [place] [address], [place] [address] May, [facility] [address] [id number] [address] [place] [address], [place] [address] May, [facility] [address] [id number] [address] [place] [address], [place] [address] May, [facility] [address] [id number] [address] [place] [address], [place] [address] Apr, [facility] [address] [id number] [address] [place] [address], [place] [address] Apr, [facility] [address] [id number] [address] [place] [address], [place] [address] Apr, [facility] [address] [id number] [address] [place] [address], [place] [address] Apr, [facility] [address] [id number] [address] [place] [address], [place] [address] Apr, [facility] [address] [id number] [address] [place] [address], [place] [address] Mar, [facility] [address] [id number] [address] [place] [address], [place] [address] 29 Mar, 2012 [facility] [address] [id number] [address] [place] [address], [place] [address] Mar, [facility] [address] [id number] [address] [place] [address], [place] [address] Mar, [facility] [address] [id number] [address] [place] [address], [place] [address] Feb, [facility] [address] [id number] [address] [place] [address], [place] [address] Feb, [facility] [address] [id number] [address] [place] [address], [place] [address] Feb, [facility] [address] [id number] [address] [place] [address], [place] [address] Feb, [facility] [address] [id number] [address] [place] [address], [place] [address] Feb, [facility] [address] [id number] [address] [place] [address], [place] [address] Jan, [facility] [address] [id number] [address] [place] [address], [place] [address] Dec, [facility] [address] [id number] [address] [place] [address], [place] [address] Dec, [facility] [address] [id number] [address] [place] [address], [place] [address] Dec, [facility] [address] [id number] [address] [place] [address], [place] [address] Nov, [facility] [address] [id number] [address] [place] [id number] Nov, [facility] [address] [id number] [address] [place] [address], [place] [address] Nov, [facility] [address] [id number] [address] [place] [address], [place] [address] Oct, [facility] [address] [id number] [address] [place] [address], [place] [address] Oct, [facility] [address] [id number] [address] [place] [address], [place] [address] Oct, [facility] [address] [id number] [address] [place] [address], [place] [address] Oct, [facility] [address] [id number] [address] [place] [address], [place] [address] September, [facility] [address] [id number] [address] [place] [address], [place] [address] September, [facility] [address] [id number] [address] [place] [address], [place] [address] Aug, [facility] [address] [id number] [address] [place] [address], [place] [address] Aug, [facility] [address] [id number] [address] [place] [address], [place] [address] Aug, [facility] [address] [id number] [address] [place] [address], [place] [address] Aug, [facility] [address] [id number] [address] [place] [address], [place] [address] Aug, [facility] [address] [id number] [address] [place] [address], [place] [address] Aug, [facility] [address] [id number] [address] [place] [address], [place] [address] Aug, [facility] [address] [id number] [address] [place] [address], [place] [address] Jul, [facility] [address] [id number] [address] [place] [address], [place] [address] Jul, [facility] [address] [id number] [address] [place] [address], [place] [address] Jul, [facility] [address] [id number] [address] [place] [address], [place] [address] May, [facility] [address] [id number] [address] [place] [address], [place] [address] May, [facility] [address] [id number] [address] [place] [id number] May, [facility] [address] [id number] [address] [place] [id number] Apr, [facility] [address] [id number] [address] [place] [id number] Apr, [facility] [address] [id number] [address] [place] [id number] Mar, [facility] [address] [id number] [address] [place] [id number] Mar, [facility] [address] [id number] [address] [place] [id number] Mar, [facility] [address] [id number] [address] [place] [id number] Mar, [facility] [address] [id number] [address] [place] [id number] Mar, [facility] [address] [id number] [address] [place] [id number] Mar, [facility] [address] [id number] [address] [place] [phone] Feb, [facility] [address] [id number] [address] [place] [id number] Feb, [facility] [address] [id number] [address] [place] [id number] Feb, IMMUNIZATIONS No Known Immunizations SOCIAL HISTORY [...]
--- OUTSIDE RECORDS SUMMARY | 2020-01-03 07:54 | XMS REPORT ---
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 Name Role Phone FERNY SILVERIO Unavailable PROBLEMS Type Condition ICD9-CM Code BAC95-DX Code Onset Dates Condition S tatus SNOMED Code Problem Insulin long-term use Z79.4 Active 260694990 Problem Hypertension I10 Active 6368361 3 Problem Diabetes E11.9 Active 55450915 Problem Hypoxia R09.02 Active 140443819 Problem Anxiety F41.9 Active 63030157 Problem Port catheter in place Z95.828 Active 012222885 Problem Pressure ulcer of other site, stage 3 L89.893 Active 895063534 Problem COPD (chronic obstructive pulmonary disease) J44.9 Active 79967608 Problem Type 2 diabetes mellitus wit h diabetic peripheral angiopathy without gangrene E11.51 Active 234691761 Problem Back pain M54.9 Active 184749327 Problem PAD (peripheral artery disease) I73.9 Active 345530666 Problem Lumbar radiculopathy, chronic M54.16 Active 620276539 Problem Recurrent major depressive disorder, in full remission F33.42 Active 978951404 Problem [facility]FP current use of insulin Z79.4 Active 491002354 ALLERGIES No Information ENCOUNTERS Encounter Location Date Diagnosis [facility] [address] [facility] [id number] [address] [place] [id number] Oct, Back pain M54.9 [facility] [address] [facility] [id number] [address] [place] [phone] Oct, [facility] [address] [facility] [id number] [address] [place] [id number] Oct, [facility] [address] [facility] [id number] [address] [place] [phone] Oct, [facility] [address] [id number] [address] [place] [id number] September, Back pain M54.9 [facility] [address] [id number] [address] [place] [id number] September, [facility] [address] [id number] [address] [place] [phone] September, [facility] [address] [id number] [address] [place] [phone] September, [facility] [address] [id number] [address] [place] [id number] Aug, Back pain M54.9 [facility] [address] [id number] [address] [place] [phone] Aug, Anxiety F41.9 [facility] [address] [id number] [address] [place] [id number] Aug, [facility] [address] [id number] [address] [place] [id number] Aug, Pressure ulcer of other site , stage 3 L89.893 and COPD (chronic obstructive pulmonary disease) J44.9 [facility] [address] [id number] [address] [place] [id number] Aug, History of smoking Z87.891 [facility] [address] [id number] [address] [place] [id number] Jul, Type 2 diabetes mellitus wit h diabetic peripheral angiopathy without gangrene E11.51 [facility] [address] [id number] [address] [place] [phone] Jul, Back pain M54.9 [facility] [address] [id number] [address] [place] [id number] Jul, Anxiety F41.9 [facility] [address] [id number] [address] [place] [phone] Jul, [facility] [address] [id number] [address] [place] [id number] 13 Jul, 2018 Back pain M54.9 [facility] [address] [id number] [address] [place] [id number] 12 Jul, 2018 Back pain M54.9 [facility] [address] [id number] [address] [place] [id number] Jul, Lumbar radiculopathy, chroni c M54.16 ; Hypertension I10 and Type 2 diabetes mellitus with diabetic peripheral angiopathy without gangrene E11.51 [facility] [address] [id number] [address] [place] [id number] Jul, Back pain M54.9 [facility] [address] [id number] [address] [place] [id number] Jul, Back pain M54.9 and Anxiety F41.9 [facility] [address] [id number] [address] [place] [id number] Jul, [facility] [address] [id number] [address] [place] [id number] May, Back pain M54.9 and Anxiety F41.9 [facility] [address] [facility] [id number] [address] [place] [id number] May, [facility] [address] [id number] [address] [place] [phone] Apr, Radiculopathy of lumbar rhiannon on M54.16 ; Back pain M54.9 and Anxiety F41.9 [facility] [address] [id number] [address] [place] [id number] Apr, Diabetes E11.9 ; Muscle spas m M62.838 and Lumbar radiculopathy, chronic M54.16 [facility] [address] [id number] [address] [place] [id number] Apr, [facility] [address] [facility] [id number] [address] [place] [id number] Apr, [facility] [address] [id number] [address] [place] [id number] Mar, Back pain M54.9 and Anxiety F41.9 [facility] [address] [id number] [address] [place] [phone] Mar, [facility] [address] [id number] [address] [place] [phone] Mar, [facility] [address] [id number] [address] [place] [id number] Mar, [facility] [address] [id number] [address] [place] [id number] Mar, Encounter for immunization Z 23 [facility] [address] [id number] [address] [place] [phone] Feb, Back pain M54.9 and Anxiety F41.9 [facility] [address] [id number] [address] [place] [id number] 04 Feb, 2018 Back pain M54.9 and Anxiety F41.9 [facility] [address] [facility] [id number] [address] [place] [id number] 06 Jan, 2018 Back pain M54.9 and Anxiety F41.9 [facility] [address] [facility] [id number] [address] [place] [id number] Jan, [facility] [address] [id number] [address] [place] [id number] Dec, [facility] [address] [id number] [address] [place] [id number] Dec, Back pain M54.9 and Anxiety F41.9 [facility] [address] [facility] [id number] [address] [place] [id number] Dec, Diabetes E11.9 ; Type 2 diab etes mellitus with diabetic peripheral angiopathy without gangrene E11.51 ; Lumbar radiculopathy, chronic M54.16 ; COPD (chronic obstructive pulmonary disease) J44.9 and Anxiety F41.9 [facility] [address] [id number] [address] [place] [id number] Dec, Back pain M54.9 and Anxiety F41.9 [facility] [address] [id number] [address] [place] [id number] Nov, Back pain M54.9 and Anxiety F41.9 [facility] [address] [id number] [address] [place] [id number] Oct, [facility] [address] [id number] [address] [place] [id number] Oct, Back pain M54.9 and Anxiety F41.9 [place] [address] [id number] [address] [place] [phone] September, Anxiety F41.9 and Back pain M54.9 [place] [address] [facility] [id number] [address] [place] [phone] September, Diabetes E11.9 ; Hypertensio n I10 ; COPD (chronic obstructive pulmonary disease) J44.9 and Lumbar radiculopathy, chronic M54.16 [place] [address] [id number] [address] [place] [id number] September, Anxiety F41.9 [facility] [address] [id number] [address] [place] [phone] Aug, [facility] [address] [id number] [address] [place] [id number] Aug, [facility] [address] [id number] [address] [place] [id number] Aug, Anxiety F41.9 and Back pain M54.9 [facility] [address] [facility] [id number] [address] [place] [phone] Aug, Medicare annual wellness vis it, initial [...] and [facility]FP current use of insulin Z79.4 [facility] [address] [id number] [address] [place] [id number] Jul, Back pain M54.9 [facility] [address] [id number] [address] [place] [id number] Jul, [facility] [address] [id number] [address] [place] [id number] Jul, Anxiety F41.9 and Back pain M54.9 [facility] [address] [id number] [address] [place] [phone] Jul, Diabetes E11.9 [facility] [address] [id number] [address] [place] [phone] May, [facility] [address] [id number] [address] [place] [phone] May, Diabetes E11.9 ; Anxiety F41 .9 ; Back pain M54.9 and COPD (chronic obstructive pulmonary disease) J44.9 [facility] [address] [id number] [address] [place] [phone] May, Back pain M54.9 [facility] [address] [id number] [address] [place] [phone] May, [facility] [address] [id number] [address] [place] [id number] Apr, Back pain M54.9 [facility] [address] [id number] [address] [place] [id number] Mar, Back pain M54.9 [facility] [address] [id number] [address] [place] [phone] Mar, [place] [address] [id number] [address] [place] [id number] 16 Mar, 2017 [facility] [address] [facility] [id number] [address] [place] [id number] 14 Mar, 2017 Radiculopathy of lumbar rhiannon on M54.16 [facility] [address] [facility] [id number] [address] [place] [id number] 13 Mar, 2017 [facility] [address] [facility] [id number] [address] [place] [id number] 07 Mar, 2017 Encounter for immunization Z 23 and Lumbar radiculopathy, chronic M54.16 [facility] [address] [facility] [id number] [address] [place] [phone] Mar, Back pain M54.9 and Anxiety F41.9 [facility] [address] [facility] [id number] [address] [place] [id number] 10 Feb, 2017 Acute bilateral low back boy n with left-sided sciatica M54.42 and Acute bilateral low back pain with right-sided sciatica M54.41 [facility] [address] [facility] [id number] [address] [place] [id number] Feb, [facility] [address] [facility] [id number] [address] [place] [id number] Feb, Back pain M54.9 [facility] [address] [facility] [id number] [address] [place] [id number] 05 Jan, 2017 Back pain M54.9 and Anxiety F41.9 [facility] [address] [facility] [id number] [address] [place] [id number] 05 Jan, 2017 Diabetes E11.9 [facility] [address] [place] [id number] [address] [place] [id number] Dec, Diabetes E11.9 ; Back pain M 54.9 ; Anxiety F41.9 and Insulin long- term use Z79.4 [facility] [address] [place] [id number] [address] [place] [phone] Dec, Anxiety F41.9 [facility] [address] [id number] [address] [place] [id number] Dec, Back pain M54.9 [facility] [address] [id number] [address] [place] [id number] Nov, Back pain M54.9 [facility] [address] [id number] [address] [place] [id number] Oct, Back pain M54.9 and Anxiety F41.9 [facility] [address] [id number] [address] [place] [id number] September, Back pain M54.9 [facility] [address] [id number] [address] [place] [id number] September, Back pain M54.9 and Anxiety F41.9 [facility] [address] [id number] [address] [place] [phone] Aug, Diabetes E11.9 ; Anxiety F41 .9 ; Back pain M54.9 and PAD (peripheral artery disease) I73.9 [facility] [address] [id number] [address] [place] [id number] Aug, Anxiety F41.9 [facility] [address] [id number] [address] [place] [id number] 14 Aug, 2016 Back pain M54.9 [facility] [address] [id number] [address] [place] [id number] Jul, Back pain M54.9 [facility] [address] [id number] [address] [place] [phone] Jul, Back pain M54.9 [facility] [address] [id number] [address] [place] [phone] Jul, Back pain M54.9 [facility] [address] [id number] [address] [place] [id number] 16 Jul, 2016 Dorsalgia M54.9 [facility] [address] [id number] [address] [place] [id number] 14 Jul, 2016 [facility] [address] [id number] [address] [place] [id number] May, Back pain M54.9 [facility] [address] [id number] [address] [place] [id number] May, Diabetes E11.9 ; Anxiety F41 .9 ; Port catheter in place Z95.828 ; Encounter for immunization Z23 and Insulin long-term use Z79.4 [facility] [address] [id number] [address] [place] [phone] Apr, Back pain M54.9 [facility] [address] [id number] [address] [place] [id number] Apr, Back pain M54.9 [facility] [address] [id number] [address] [place] [id number] Apr, [facility] [address] [id number] [address] [place] [id number] Apr, Back pain M54.9 [facility] [address] [id number] [address] [place] [phone] Mar, COPD (chronic obstructive pu lmonary disease) J44.9 [facility] [address] [id number] [address] [place] [id number] Feb, [facility] [address] [id number] [address] [place] [id number] 30 Jan, 2016 [facility] [address] [id number] [address] [place] [phone] Jan, [facility] [address] [id number] [address] [place] [phone] Jan, [facility] [address] [id number] [address] [place] [phone] Jan, [facility] [address] [id number] [address] [place] [id number] Dec, Diabetes E11.9 ; Hypoxia R09 .02 and Back pain M54.9 [facility] [address] [id number] [address] [place] [id number] Dec, [facility] [address] [id number] [address] [place] [id number] Nov, [facility] [address] [id number] [address] [place] [phone] Oct, Anxiety F41.9 [facility] [address] [id number] [address] [place] [id number] Oct, Back pain M54.9 [facility] [address] [id number] [address] [place] [phone] September, Back pain M54.9 [facility] [address] [id number] [address] [place] [id number] September, Diabetes E11.9 [facility] [address] [id number] [address] [place] [phone] September, [facility] [address] [id number] [address] [place] [phone] September, Diabetes E11.9 ; Insulin sarai g-term use Z79.4 and Back pain M54.9 [facility] [address] [id number] [address] [place] [id number] Aug, Back pain M54.9 [facility] [address] [id number] [address] [place] [id number] Aug, Back pain M54.9 ; Anxiety F4 1.9 and Arthropathy, unspecified M12.9 [facility] [address] [id number] [address] [place] [id number] Jul, Back pain M54.9 [facility] [address] [id number] [address] [place] [id number] Jul, Anxiety F41.9 [facility] [address] [facility] [id number] [address] [place] [id number] Jul, Back pain M54.9 [facility] [address] [facility] [id number] [address] [place] [id number] Jul, [facility] [address] [facility] [id number] [address] [place] [id number] Jul, [facility] [address] [facility] [id number] [address] [place] [id number] May, Back pain M54.9 ; Diabetes E 11.9 ; Insulin long-term use Z79.4 ; COPD (chronic obstructive pulmonary disease) J44.9 and Hypertension I10 [facility] [address] [facility] [id number] [address] [place] [phone] May, Chronic pain G89.29 [facility] [address] [id number] [address] [place] [id number] Apr, [facility] [address] [facility] [id number] [address] [place] [id number] Apr, [facility] [address] [facility] [id number] [address] [place] [id number] Mar, [facility] [address] [facility] [id number] [address] [place] [id number] Mar, Encounter for immunization Z 23 and Diabetes E11.9 [facility] [address] [id number] [address] [place] [id number] Feb, [facility] [address] [facility] [id number] [address] [place] [id number] Feb, [facility] [address] [facility] [id number] [address] [place] [id number] 23 Jan, 2015 [facility] [address] [facility] [id number] [address] [place] [id number] 16 Jan, 2015 [facility] [address] [facility] [id number] [address] [place] [id number] Dec, [facility] [address] [id number] [address] [place] [phone] Dec, [facility] [address] [id number] [address] [place] [id number] Dec, Unspecified arthropathy, sit e unspecified 716.90 and Diabetes mellitus type 2, uncontrolled 250.02 [facility] [address] [id number] [address] [place] [id number] Dec, [facility] [address] [id number] [address] [place] [id number] Nov, [facility] [address] [id number] [address] [place] [id number] Oct, [facility] [address] [id number] [address] [place] [id number] September, [facility] [address] [id number] [address] [place] [phone] September, [facility] [address] [id number] [address] [place] [phone] September, [facility] [address] [id number] [address] [place] [phone] September, [facility] [address] [id number] [address] [place] [phone] Aug, [facility] [address] [id number] [address] [place] [id number] Aug, [facility] [address] [id number] [address] [place] [id number] Jul, [facility] [address] [id number] [address] [place] [id number] Jul, [facility] [address] [id number] [address] [place] [id number] Jul, [facility] [address] [id number] [address] [place] [address], [place] [id number] 16 Jul, 2014 [facility] [address] [id number] [address] [place] [address], [place] [id number] 16 Jul, 2014 [facility] [address] [id number] [address] [place] [address], [place] [id number] 16 Jul, 2014 [facility] [address] [id number] [address] [place] [address], [place] [id number] 16 Jul, 2014 [facility] [address] [id number] [address] [place] [address], [place] [id number] 16 Jul, 2014 [facility] [address] [id number] [address] [place] [address], [place] [id number] 16 Jul, 2014 [facility] [address] [id number] [address] [place] [address], [place] [id number] 13 Jul, 2014 [facility] [address] [id number] [address] [place] [address], [place] [id number] 13 Jul, 2014 [facility] [address] [id number] [address] [place] [address], [place] [id number] 09 Jul, 2014 [facility] [address] [id number] [address] [place] [address], [place] [id number] 09 Jul, 2014 [facility] [address] [id number] [address] [place] [address], [place] [id number] 17 Jul, 2014 [facility] [address] [id number] [address] [place] [address], [place] [id number] 17 Jul, 2014 [facility] [address] [id number] [address] [place] [address], [place] [id number] 16 Jul, 2014 [facility] [address] [id number] [address] [place] [address], [place] [id number] 16 Jul, 2014 [facility] [address] [id number] [address] [place] [address], [place] [id number] 16 Jul, 2014 [facility] [address] [id number] [address] [place] [address], [place] [id number] 16 Jul, 2014 [facility] [address] [id number] [address] [place] [address], [place] [id number] 16 Jul, 2014 [facility] [address] [id number] [address] [place] [address], [place] [id number] 16 Jul, 2014 [facility] [address] [id number] [address] [place] [address], [place] [id number] 16 Jul, 2014 [facility] [address] [id number] [address] [place] [address], [place] [id number] Jul, 2014 [facility] [address] [id number] [address] [place] [address], [place] [id number] Jul, 2014 [facility] [address] [id number] [address] [place] [address], [place] [id number] 16 Jul, 2014 [facility] [address] [id number] [address] [place] [address], [place] [id number] Jul, 2014 [facility] [address] [id number] [address] [place] [address], [place] [id number] Jul, 2014 [facility] [address] [id number] [address] [place] [address], [place] [id number] Jul, 2014 [facility] [address] [id number] [address] [place] [address], [place] [id number] Jul, [facility] [address] [id number] [address] [place] [address], [place] [id number] May, [facility] [address] [id number] [address] [place] [address], [place] [id number] May, [facility] [address] [id number] [address] [place] [address], [place] [id number] May, [facility] [address] [id number] [address] [place] [address], [place] [id number] May, [facility] [address] [id number] [address] [place] [id number] May, [facility] [address] [id number] [address] [place] [address], [place] [id number] May, [facility] [address] [id number] [address] [place] [address], [place] [id number] May, [facility] [address] [id number] [address] [place] [address], [place] [id number] May, [facility] [address] [id number] [address] [place] [address], [place] [id number] May, [facility] [address] [id number] [address] [place] [address], [place] [id number] May, [facility] [address] [id number] [address] [place] [address], [place] [id number] Apr, [facility] [address] [id number] [address] [place] [address], [place] [id number] Apr, [facility] [address] [id number] [address] [place] [address], [place] [id number] Apr, [facility] [address] [id number] [address] [place] [address], [place] [id number] Apr, [facility] [address] [id number] [address] [place] [address], [place] [id number] Apr, [facility] [address] [id number] [address] [place] [address], [place] [id number] Apr, [facility] [address] [id number] [address] [place] [address], [place] [id number] Mar, [facility] [address] [id number] [address] [place] [address], [place] [id number] Mar, [facility] [address] [id number] [address] [place] [address], [place] [id number] Mar, [facility] [address] [id number] [address] [place] [address], [place] [id number] Mar, [facility] [address] [id number] [address] [place] [address] Mar, [facility] [address] [id number] [address] [place] [address], [place] [id number] Mar, [facility] [address] [id number] [address] [place] [address], [place] [id number] Mar, [facility] [address] [id number] [address] [place] [address], [place] [id number] Mar, [facility] [address] [id number] [address] [place] [id number] Mar, [facility] [address] [id number] [address] [place] [address], [place] [id number] Mar, [facility] [address] [id number] [address] [place] [address], [place] [id number] Mar, [facility] [address] [id number] [address] [place] [address], [place] [id number] Feb, [facility] [address] [id number] [address] [place] [address], [place] [id number] Feb, [facility] [address] [id number] [address] [place] [address], [place] [id number] Feb, [facility] [address] [id number] [address] [place] [id number] Feb, [facility] [address] [id number] [address] [place] [id number] Feb, [facility] [address] [id number] [address] [place] [id number] Feb, [facility] [address] [id number] [address] [place] [address], [place] [id number] Feb, [facility] [address] [id number] [address] [place] [id number] Feb, [facility] [address] [id number] [address] [place] [id number] Feb, [facility] [address] [id number] [facility] [place] [id number] Feb, [facility] [address] [id number] [address] [place] [address], [place] [id number] Jan, 2013 [facility] [address] [id number] [address] [place] [address], [place] [id number] Jan, 2013 [facility] [address] [id number] [address] [place] [address], [place] [id number] 16 Jan, 2013 [facility] [address] [id number] [address] [place] [address], [place] [id number] 16 Jan, 2013 [facility] [address] [id number] [address] [place] [address], [place] [id number] Jan, [facility] [address] [id number] [address] [place] [address], [place] [id number] Jan, [facility] [address] [id number] [address] [place] [address], [place] [id number] Jan, [facility] [address] [id number] [address] [place] [address], [place] [id number] Dec, [facility] [address] [id number] [address] [place] [address], [place] [id number] Dec, [facility] [address] [id number] [address] [place] [address], [place] [id number] Dec, [facility] [address] [id number] [address] [place] [address], [place] [id number] Dec, [facility] [address] [id number] [address] [place] [address], [place] [id number] Dec, [facility] [address] [id number] [address] [place] [address], [place] [id number] Dec, [facility] [address] [id number] [address] [place] [address], [place] [id number] Dec, [facility] [address] [id number] [address] [place] [address], [place] [id number] Dec, [facility] [address] [id number] [address] [place] [address], [place] [id number] Oct, [facility] [address] [id number] [address] [place] [address], [place] [id number] Oct, [facility] [address] [id number] [address] [place] [address], [place] [id number] September, [facility] [address] [id number] [address] [place] [address], [place] [id number] September, [facility] [address] [id number] [address] [place] [address], [place] [id number] September, [facility] [address] [id number] [address] [place] [address], [place] [id number] September, [facility] [address] [id number] [address] [place] [address], [place] [id number] September, [facility] [address] [id number] [address] [place] [address], [place] [id number] September, [facility] [address] [id number] [address] [place] [address], [place] [id number] September, [facility] [address] [id number] [address] [place] [address], [place] [id number] Aug, [facility] [address] [id number] [address] [place] [address], [place] [id number] Aug, [facility] [address] [id number] [address] [place] [address], [place] [id number] Jul, [facility] [address] [id number] [address] [place] [address], [place] [id number] Jul, [facility] [address] [id number] [address] [place] [address], [place] [id number] Jul, [facility] [address] [id number] [address] [place] [address], [place] [id number] Jul, [facility] [address] [id number] [address] [place] [address], [place] [id number] 14 Jul, 2013 [facility] [address] [id number] [address] [place] [address], [place] [id number] 14 Jul, 2013 [facility] [address] [id number] [address] [place] [address], [place] [id number] 03 Jul, 2013 [facility] [address] [id number] [address] [place] [address], [place] [id number] 03 Jul, 2013 [facility] [address] [id number] [address] [place] [address], [place] [id number] 15 May, 2013 [facility] [address] [id number] [address] [place] [address], [place] [id number] 15 May, 2013 [facility] [address] [id number] [address] [place] [address], [place] [id number] 14 May, 2013 [facility] [address] [id number] [address] [place] [address], [place] [id number] May, [facility] [address] [id number] [address] [place] [address], [place] [id number] 18 Apr, 2013 [facility] [address] [id number] [address] [place] [address], [place] [id number] Mar, [facility] [address] [id number] [address] [place] [address], [place] [id number] Mar, [facility] [address] [id number] [address] [place] [address], [place] [id number] Mar, [facility] [address] [id number] [address] [place] [address], [place] [id number] Mar, [facility] [address] [id number] [address] [place] [address], [place] [id number] 18 Mar, 2013 [facility] [address] [id number] [address] [place] [address], [place] [id number] 18 Mar, 2013 [facility] [address] [id number] [address] [place] [address], [place] [id number] Mar, [facility] [address] [id number] [address] [place] [address], [place] [id number] Mar, [facility] [address] [id number] [address] [place] [address], [place] [id number] Mar, [facility] [address] [id number] [address] [place] [address], [place] [id number] Mar, [facility] [address] [id number] [address] [place] [address], [place] [id number] Mar, [facility] [address] [id number] [address] [place] [address], [place] [id number] Mar, [facility] [address] [id number] [address] [place] [address], [place] [id number] Feb, [facility] [address] [id number] [address] [place] [address], [place] [id number] Feb, [facility] [address] [id number] [address] [place] [id number] Feb, [facility] [address] [id number] [address] [place] [address], [place] [id number] Feb, [facility] [address] [id number] [address] [place] [id number] Feb, [facility] [address] [id number] [address] [place] [id number] Jan, [facility] [address] [id number] [address] [place] [id number] Dec, [facility] [address] [id number] [address] [place] [address], [place] [id number] Dec, [facility] [address] [id number] [address] [place] [address], [place] [id number] Dec, [facility] [address] [id number] [address] [place] [id number] Nov, [facility] [address] [id number] [address] [place] [id number] Nov, [facility] [address] [id number] [address] [place] [address], [place] [id number] 15 Nov, 2012 [facility] [address] [id number] [address] [place] [address], [place] [id number] Oct, [facility] [address] [id number] [address] [place] [address], [place] [id number] Oct, [facility] [address] [id number] [address] [place] [address], [place] [id number] Oct, [facility] [address] [id number] [address] [place] [address], [place] [id number] September, [facility] [address] [id number] [address] [place] [address], [place] [id number] September, [facility] [address] [id number] [address] [place] [address], [place] [id number] September, [facility] [address] [id number] [address] [place] [address], [place] [id number] September, [facility] [address] [id number] [address] [place] [address], [place] [id number] September, [facility] [address] [id number] [address] [place] [address], [place] [id number] Aug, [facility] [address] [id number] [address] [place] [address], [place] [id number] Aug, [facility] [address] [id number] [address] [place] [address], [place] [id number] Aug, [facility] [address] [id number] [address] [place] [address], [place] [id number] Jul, [facility] [address] [id number] [address] [place] [address], [place] [id number] Jul, [facility] [address] [id number] [address] [place] [address], [place] [id number] Jul, [facility] [address] [id number] [address] [place] [address], [place] [id number] Jul, [facility] [address] [id number] [address] [place] [address], [place] [id number] Jul, [facility] [address] [id number] [address] [place] [address], [place] [id number] Jul, [facility] [address] [id number] [address] [place] [address], [place] [id number] Jul, [facility] [address] [id number] [address] [place] [address], [place] [id number] May, [facility] [address] [id number] [address] [place] [address], [place] [id number] May, [facility] [address] [id number] [address] [place] [address], [place] [id number] May, [facility] [address] [id number] [address] [place] [address], [place] [id number] Apr, [facility] [address] [id number] [address] [place] [address], [place] [id number] Apr, [facility] [address] [id number] [address] [place] [address], [place] [id number] Apr, [facility] [address] [id number] [address] [place] [address], [place] [id number] 17 Apr, 2012 [facility] [address] [id number] [address] [place] [address], [place] [id number] Apr, [facility] [address] [id number] [address] [place] [address], [place] [id number] Mar, [facility] [address] [id number] [address] [place] [address], [place] [id number] 29 Mar, 2012 [facility] [address] [id number] [address] [place] [address], [place] [id number] 15 Mar, 2012 [facility] [address] [id number] [address] [place] [address], [place] [id number] Mar, [facility] [address] [id number] [address] [place] [address], [place] [id number] Feb, [facility] [address] [id number] [address] [place] [address], [place] [id number] Feb, [facility] [address] [id number] [address] [place] [address], [place] [id number] Feb, [facility] [address] [id number] [address] [place] [address], [place] [id number] Feb, [facility] [address] [id number] [address] [place] [address], [place] [id number] Feb, [facility] [address] [id number] [address] [place] [address], [place] [id number] Jan, [facility] [address] [id number] [address] [place] [address], [place] [id number] Dec, [facility] [address] [id number] [address] [place] [address], [place] [id number] Dec, [facility] [address] [id number] [address] [place] [address], [place] [id number] Dec, [facility] [address] [id number] [address] [place] [address], [place] [id number] Nov, [facility] [address] [id number] [address] [place] [address], [place] [id number] Nov, [facility] [address] [id number] [address] [place] [id number] Nov, [facility] [address] [id number] [address] [place] [address], [place] [id number] Oct, [facility] [address] [id number] [address] [place] [address], [place] [id number] Oct, [facility] [address] [id number] [address] [place] [address], [place] [id number] Oct, [facility] [address] [id number] [address] [place] [address], [place] [id number] Oct, [facility] [address] [id number] [address] [place] [address], [place] [id number] September, [facility] [address] [id number] [address] [place] [address], [place] [id number] September, [facility] [address] [id number] [address] [place] [address], [place] [id number] Aug, [facility] [address] [id number] [address] [place] [address], [place] [id number] Aug, [facility] [address] [id number] [address] [place] [address], [place] [id number] Aug, [facility] [address] [id number] [address] [place] [address], [place] [id number] Aug, [facility] [address] [id number] [address] [place] [address], [place] [id number] Aug, [facility] [address] [id number] [address] [place] [address], [place] [id number] Aug, [facility] [address] [id number] [address] [place] [address], [place] [id number] Aug, [facility] [address] [id number] [address] [place] [address], [place] [id number] Jul, [facility] [address] [id number] [address] [place] [address], [place] [id number] Jul, [facility] [address] [id number] [address] [place] [address], [place] [id number] Jul, [facility] [address] [id number] [address] [place] [address], [place] [id number] May, [facility] [address] [id number] [address] [place] [address], [place] [id number] May, [facility] [address] [id number] [address] [place] [address], [place] [id number] May, [facility] [address] [id number] [address] [place] [id number] Apr, [facility] [address] [id number] [address] [place] [id number] Apr, [facility] [address] [id number] [address] [place] [id number] Mar, [facility] [address] [id number] [address] [place] [id number] Mar, [facility] [address] [id number] [address] [place] [id number] Mar, [facility] [address] [id number] [address] [place] [id number] Mar, [facility] [address] [id number] [address] [place] [id number] Mar, [facility] [address] [id number] [address] [place] [id number] Mar, [facility] [address] [id number] [address] [place] [id number] Feb, [facility] [address] [id number] [address] [place] [id number] Feb, [facility] [address] [id number] [address] [place] [id number] Feb, IMMUNIZATIONS No Known Immunizations SOCIAL HISTORY [...]
--- OUTSIDE RECORDS SUMMARY | 2020-01-03 07:55 | XMS REPORT ---
Author Author Tra Landeros Doctor Organization 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 Name Role Phone Migration, Doctor Unavailable Unavailable PROBLEMS Type Condition ICD9-CM Code SXB89-MS Code Onset Dates Condition S tatus SNOMED Code Problem Insulin long-term use Z79.4 Active 944055093 Problem Hypertension I10 Active 8808535 3 Problem Diabetes E11.9 Active 71367419 Problem Hypoxia R09.02 Active 527935969 Problem Anxiety F41.9 Active 56016111 Problem Port catheter in place Z95.828 Active 442801667 Problem Pressure ulcer of other site, stage 3 L89.893 Active 095192530 Problem COPD (chronic obstructive pulmonary disease) J44.9 Active 99556419 Problem Type 2 diabetes mellitus wit h diabetic peripheral angiopathy without gangrene E11.51 Active 392865240 Problem Back pain M54.9 Active 646751076 Problem PAD (peripheral artery disease) I73.9 Active 072648255 Problem Lumbar radiculopathy, chronic M54.16 Active 839165246 Problem Recurrent major depressive disorder, in full remission F33.42 Active 899108913 Problem snf current use of insulin Z79.4 Active 612644131 ALLERGIES No Information ENCOUNTERS Encounter Location Date Diagnosis [place] [id number] [place] [address] Aug, Back pain M54.9 [facility] [address] [facility] [id number] [address] [place] [address] Aug, Anxiety F41.9 [place] [address] [place] [id number] [address] [place] [address] Aug, [place] [address] [place] [id number] [address] [place] [address] Aug, Pressure ulcer of other site , stage 3 L89.893 and COPD (chronic obstructive pulmonary disease) J44.9 [place] [address] [id number] [address] [place] [address] 03 Aug, 2018 History of smoking Z87.891 [facility] [address] [id number] [address] [place] [address] Jul, Type 2 diabetes mellitus wit h diabetic peripheral angiopathy without gangrene E11.51 [facility] [address] [id number] [address] [place] [address] Jul, Back pain M54.9 [facility] [address] [id number] [address] [place] [address] Jul, Anxiety F41.9 [facility] [address] [id number] [address] [place] [address] Jul, [facility] [address] [id number] [address] [place] [address] Jul, Back pain M54.9 [facility] [address] [id number] [address] [place] [address] Jul, Back pain M54.9 [facility] [address] [id number] [address] [place] [address] Jul, Lumbar radiculopathy, chroni c M54.16 ; Hypertension I10 and Type 2 diabetes mellitus with diabetic peripheral angiopathy without gangrene E11.51 [facility] [address] [id number] [address] [place] [address] 25 Jul, 2018 Back pain M54.9 [facility] [address] [id number] [address] [place] [address] Jul, Back pain M54.9 and Anxiety F41.9 [facility] [address] [id number] [address] [place] [address] Jul, [facility] [address] [facility] [id number] [address] [place] [address] May, Back pain M54.9 and Anxiety F41.9 [facility] [address] [id number] [address] [place] [address] May, [facility] [address] [id number] [address] [place] [address] Apr, Radiculopathy of lumbar rhiannon on M54.16 ; Back pain M54.9 and Anxiety F41.9 [facility] [address] [id number] [address] [place] [address] Apr, Diabetes E11.9 ; Muscle spas m M62.838 and Lumbar radiculopathy, chronic M54.16 [facility] [address] [id number] [address] [place] [address] Apr, [facility] [address] [id number] [address] [place] [address] Apr, [facility] [address] [id number] [address] [place] [address] Mar, Back pain M54.9 and Anxiety F41.9 [facility] [address] [id number] [address] [place] [address] Mar, [facility] [address] [id number] [address] [place] [address] Mar, [facility] [address] [id number] [address] [place] [address] Mar, [facility] [address] [id number] [address] [place] [address] Mar, Encounter for immunization Z 23 [facility] [address] [id number] [address] [place] [address] Feb, Back pain M54.9 and Anxiety F41.9 [facility] [address] [id number] [address] [place] [address] 04 Feb, 2018 Back pain M54.9 and Anxiety F41.9 [facility] [address] [id number] [address] [place] [address] Jan, Back pain M54.9 and Anxiety F41.9 [facility] [address] [id number] [address] [place] [address] Jan, [facility] [address] [id number] [address] [place] [address] Dec, [facility] [address] [id number] [address] [place] [address] Dec, Back pain M54.9 and Anxiety F41.9 [facility] [address] [id number] [address] [place] [address] Dec, Diabetes E11.9 ; Type 2 diab etes mellitus with diabetic peripheral angiopathy without gangrene E11.51 ; Lumbar radiculopathy, chronic M54.16 ; COPD (chronic obstructive pulmonary disease) J44.9 and Anxiety F41.9 [place] [address] [id number] [address] [place] [address] Dec, Back pain M54.9 and Anxiety F41.9 [facility] [address] [id number] [address] [place] [address] Nov, Back pain M54.9 and Anxiety F41.9 [facility] [address] [id number] [address] [place] [address] Oct, [facility] [address] [id number] [address] [place] [address] Oct, Back pain M54.9 and Anxiety F41.9 [facility] [address] [id number] [address] [place] [address] September, Anxiety F41.9 and Back pain M54.9 [facility] [address] [id number] [address] [place] [address] September, Diabetes E11.9 ; Hypertensio n I10 ; COPD (chronic obstructive pulmonary disease) J44.9 and Lumbar radiculopathy, chronic M54.16 [facility] [address] [id number] [address] [place] [address] September, Anxiety F41.9 [facility] [address] [id number] [address] [place] [address] Aug, [facility] [address] [id number] [address] [place] [address] Aug, [facility] [address] [facility] [id number] [address] [place] [address] Aug, Anxiety F41.9 and Back pain M54.9 [facility] [address] [facility] [id number] [address] [place] [address] Aug, Medicare annual wellness vis it, initial [...] and snf current use of insulin Z79.4 [place] [address] [id number] [address] [place] [address] Jul, Back pain M54.9 [facility] [address] [facility] [id number] [address] [place] [address] Jul, [facility] [address] [id number] [address] [place] [address] Jul, Anxiety F41.9 and Back pain M54.9 [facility] [address] [id number] [address] [place] [address] Jul, Diabetes E11.9 [facility] [address] [facility] [id number] [address] [place] [address] May, [facility] [address] [facility] [id number] [address] [place] [address] May, Diabetes E11.9 ; Anxiety F41 .9 ; Back pain M54.9 and COPD (chronic obstructive pulmonary disease) J44.9 [facility] [address] [id number] [address] [place] [address] May, Back pain M54.9 [facility] [address] [id number] [address] [place] [address] May, [facility] [address] [id number] [address] [place] [address] Apr, Back pain M54.9 [facility] [address] [id number] [address] [place] [address] Mar, Back pain M54.9 [facility] [address] [id number] [address] [place] [address] Mar, [facility] [address] [id number] [address] [place] [address] Mar, [facility] [address] [id number] [address] [place] [address] 14 Mar, 2017 Radiculopathy of lumbar rhiannon on M54.16 [facility] [address] [facility] [id number] [address] [place] [address] 13 Mar, 2017 [facility] [address] [facility] [id number] [address] [place] [address] 07 Mar, 2017 Encounter for immunization Z 23 and Lumbar radiculopathy, chronic M54.16 [facility] [address] [id number] [address] [place] [address] Mar, Back pain M54.9 and Anxiety F41.9 [facility] [address] [facility] [id number] [address] [place] [address] 10 Feb, 2017 Acute bilateral low back boy n with left-sided sciatica M54.42 and Acute bilateral low back pain with right-sided sciatica M54.41 [facility] [address] [facility] [id number] [address] [place] [address] Feb, [facility] [address] [id number] [address] [place] [address] Feb, Back pain M54.9 [facility] [address] [id number] [address] [place] [address] 05 Jan, 2017 Back pain M54.9 and Anxiety F41.9 [facility] [address] [facility] [id number] [address] [place] [address] 05 Jan, 2017 Diabetes E11.9 [facility] [address] [id number] [address] [place] [address] Dec, Diabetes E11.9 ; Back pain M 54.9 ; Anxiety F41.9 and Insulin long- term use Z79.4 [facility] [address] [facility] [id number] [address] [place] [address] Dec, Anxiety F41.9 [facility] [address] [facility] [id number] [address] [place] [address] Dec, Back pain M54.9 [facility] [address] [facility] [id number] [address] [place] [address] Nov, Back pain M54.9 [facility] [address] [facility] [id number] [address] [place] [address] Oct, Back pain M54.9 and Anxiety F41.9 [facility] [address] [facility] [id number] [address] [place] [address] September, Back pain M54.9 [facility] [address] [id number] [address] [place] [address] September, Back pain M54.9 and Anxiety F41.9 [facility] [address] [facility] [id number] [address] [place] [address] Aug, Diabetes E11.9 ; Anxiety F41 .9 ; Back pain M54.9 and PAD (peripheral artery disease) I73.9 [facility] [address] [facility] [id number] [address] [place] [address] Aug, Anxiety F41.9 [facility] [address] [id number] [address] [place] [address] Aug, Back pain M54.9 [facility] [address] [id number] [address] [place] [address] Jul, Back pain M54.9 [facility] [address] [id number] [address] [place] [address] Jul, Back pain M54.9 [facility] [address] [id number] [address] [place] [address] Jul, Back pain M54.9 [facility] [address] [id number] [address] [place] [address] 16 Jul, 2016 Dorsalgia M54.9 [facility] [address] [id number] [address] [place] [address] Jul, [facility] [address] [id number] [address] [place] [address] May, Back pain M54.9 [facility] [address] [id number] [address] [place] [address] May, Diabetes E11.9 ; Anxiety F41 .9 ; Port catheter in place Z95.828 ; Encounter for immunization Z23 and Insulin long-term use Z79.4 [facility] [address] [id number] [address] [place] [address] Apr, Back pain M54.9 [facility] [address] [id number] [address] [place] [address] Apr, Back pain M54.9 [facility] [address] [id number] [address] [place] [address] Apr, [facility] [address] [id number] [address] [place] [address] Apr, Back pain M54.9 [facility] [address] [id number] [address] [place] [address] Mar, COPD (chronic obstructive pu lmonary disease) J44.9 [facility] [address] [id number] [address] [place] [address] Feb, [facility] [address] [id number] [address] [place] [address] 30 Jan, 2016 [facility] [address] [id number] [address] [place] [address] Jan, [facility] [address] [id number] [address] [place] [address] Jan, [facility] [address] [id number] [address] [place] [address] Jan, [facility] [address] [id number] [address] [place] [address] Dec, Diabetes E11.9 ; Hypoxia R09 .02 and Back pain M54.9 [facility] [address] [id number] [address] [place] [address] Dec, [facility] [address] [id number] [address] [place] [address] Nov, [facility] [address] [id number] [address] [place] [address] Oct, Anxiety F41.9 [facility] [address] [id number] [address] [place] [address] Oct, Back pain M54.9 [facility] [address] [id number] [address] [place] [address] September, Back pain M54.9 [facility] [address] [id number] [address] [place] [address] September, Diabetes E11.9 [facility] [address] [id number] [address] [place] [address] September, [facility] [address] [id number] [address] [place] [address] September, Diabetes E11.9 ; Insulin sarai g-term use Z79.4 and Back pain M54.9 [facility] [address] [id number] [address] [place] [address] Aug, Back pain M54.9 [facility] [address] [id number] [address] [place] [address] Aug, Back pain M54.9 ; Anxiety F4 1.9 and Arthropathy, unspecified M12.9 [facility] [address] [id number] [address] [place] [address] Jul, Back pain M54.9 [facility] [address] [id number] [address] [place] [address] Jul, Anxiety F41.9 [facility] [address] [facility] [id number] [address] [place] [address] Jul, Back pain M54.9 [facility] [address] [id number] [address] [place] [address] Jul, [facility] [address] [facility] [id number] [address] [place] [address] Jul, [facility] [address] [facility] [id number] [address] [place] [address] May, Back pain M54.9 ; Diabetes E 11.9 ; Insulin long-term use Z79.4 ; COPD (chronic obstructive pulmonary disease) J44.9 and Hypertension I10 [facility] [address] [id number] [address] [place] [address] May, Chronic pain G89.29 [facility] [address] [facility] [id number] [address] [place] [address] Apr, [facility] [address] [facility] [id number] [address] [place] [address] Apr, [facility] [address] [facility] [id number] [address] [place] [address] Mar, [facility] [address] [id number] [address] [place] [address] Mar, Encounter for immunization Z 23 and Diabetes E11.9 [facility] [address] [id number] [address] [place] [address] Feb, [facility] [address] [id number] [address] [place] [address] Feb, [facility] [address] [id number] [address] [place] [address] Jan, [facility] [address] [id number] [address] [place] [address] Jan, [facility] [address] [id number] [address] [place] [address] Dec, [facility] [address] [id number] [address] [place] [address] Dec, [facility] [address] [id number] [address] [place] [address] Dec, Unspecified arthropathy, sit e unspecified 716.90 and Diabetes mellitus type 2, uncontrolled 250.02 [facility] [address] [id number] [address] [place] [address] Dec, [facility] [address] [id number] [address] [place] [address] Nov, [facility] [address] [id number] [address] [place] [address] Oct, [facility] [address] [id number] [address] [place] [address] September, [facility] [address] [id number] [address] [place] [address] September, [facility] [address] [id number] [address] [place] [address] September, [facility] [address] [id number] [facility] [place] [address] 11 Sep, 2014 [facility] [address] [id number] [address] [place] [address], [place] [address] 14 Aug, 2014 [facility] [address] [id number] [address] [place] [address], [place] [address] 13 Aug, 2014 [facility] [address] [id number] [address] [place] [address], [place] [address] 18 Jul, 2014 [facility] [address] [id number] [address] [place] [address], [place] [address] 18 Jul, 2014 [facility] [address] [id number] [address] [place] [address], [place] [address] 16 Jul, 2014 [facility] [address] [id number] [address] [place] [address], [place] [address] 16 Jul, 2014 [facility] [address] [id number] [address] [place] [address], [place] [address] 16 Jul, 2014 [facility] [address] [id number] [address] [place] [address], [place] [address] 16 Jul, 2014 [facility] [address] [id number] [address] [place] [address], [place] [address] 16 Jul, 2014 [facility] [address] [id number] [address] [place] [address], [place] [address] 16 Jul, 2014 [facility] [address] [id number] [address] [place] [address], [place] [address] 16 Jul, 2014 [facility] [address] [id number] [address] [place] [address], [place] [address] 13 Jul, 2014 [facility] [address] [id number] [address] [place] [address], [place] [address] 13 Jul, 2014 [facility] [address] [id number] [address] [place] [address], [place] [address] 09 Jul, 2014 [facility] [address] [id number] [address] [place] [address], [place] [address] 09 Jul, 2014 [facility] [address] [id number] [address] [place] [address], [place] [address] 17 Jul, 2014 [facility] [address] [id number] [address] [place] [address], [place] [address] 17 Jul, 2014 [facility] [address] [id number] [address] [place] [address], [place] [address] 16 Jul, 2014 [facility] [address] [id number] [address] [place] [address], [place] [address] 16 Jul, 2014 [facility] [address] [id number] [address] [place] [address], [place] [address] 16 Jul, 2014 [facility] [address] [id number] [address] [place] [address], [place] [address] 16 Jul, 2014 [facility] [address] [id number] [address] [place] [address], [place] [address] 16 Jul, 2014 [facility] [address] [id number] [address] [place] [address], [place] [address] 16 Jul, 2014 [facility] [address] [id number] [address] [place] [address], [place] [address] 16 Jul, 2014 [facility] [address] [id number] [address] [place] [address] 16 Jul, 2014 [facility] [address] [id number] [address] [place] [address] 16 Jul, 2014 [facility] [address] [id number] [address] [place] [address], [place] [address] 16 Jul, 2014 [facility] [address] [id number] [address] [place] [address], [place] [address] 16 Jul, 2014 [facility] [address] [id number] [address] [place] [address] 16 Jul, 2014 [facility] [address] [id number] [address] [place] [address] Jul, [facility] [address] [id number] [address] [place] [address], [place] [address] Jul, [facility] [address] [id number] [address] [place] [address], [place] [address] May, [facility] [address] [id number] [address] [place] [address], [place] [address] May, [facility] [address] [id number] [address] [place] [address], [place] [address] May, [facility] [address] [id number] [address] [place] [address], [place] [address] May, [facility] [address] [id number] [address] [place] [address], [place] [address] May, [facility] [address] [id number] [address] [place] [address], [place] [address] May, [facility] [address] [id number] [address] [place] [address], [place] [address] May, [facility] [address] [id number] [address] [place] [address], [place] [address] May, [facility] [address] [id number] [address] [place] [address], [place] [address] May, [facility] [address] [id number] [address] [place] [address], [place] [address] May, [facility] [address] [id number] [address] [place] [address], [place] [address] Apr, [facility] [address] [id number] [address] [place] [address], [place] [address] Apr, [facility] [facility] [address] [id number] [address] [place] [address], [place] [address] Apr, [facility] [address] [id number] [address] [place] [address], [place] [address] Apr, [facility] [address] [id number] [address] [place] [address], [place] [address] Apr, [facility] [address] [id number] [address] [place] [address], [place] [address] Apr, [facility] [address] [id number] [address] [place] [address], [place] [address] Mar, [facility] [address] [id number] [address] [place] [address], [place] [address] Mar, [facility] [address] [id number] [address] [place] [address], [place] [address] Mar, [facility] [address] [id number] [address] [place] [address], [place] [address] Mar, [facility] [address] [id number] [address] [place] [address], [place] [address] Mar, [facility] [address] [id number] [address] [place] [address], [place] [address] Mar, [facility] [address] [id number] [address] [place] [address], [place] [address] Mar, [facility] [address] [id number] [address] [place] [address], [place] [address] Mar, [facility] [address] [id number] [address] [place] [address], [place] [address] Mar, [facility] [address] [id number] [address] [place] [address], [place] [address] Mar, [facility] [address] [id number] [address] [place] [address], [place] [address] Mar, [facility] [address] [id number] [address] [place] [address], [place] [address] Feb, [facility] [address] [id number] [address] [place] [address], [place] [address] Feb, [facility] [address] [id number] [address] [place] [address], [place] [address] Feb, [facility] [address] [id number] [address] [place] [address], [place] [address] 15 Feb, 2014 [facility] [address] [id number] [address] [place] [address], [place] [address] Feb, [facility] [address] [id number] [address] [place] [address], [place] [address] Feb, [facility] [address] [id number] [address] [place] [address], [place] [address] Feb, [facility] [address] [id number] [address] [place] [address], [place] [address] Feb, [facility] [address] [id number] [address] [place] [address], [place] [address] Feb, [facility] [address] [id number] [address] [place] [address], [place] [address] Feb, [facility] [address] [id number] [address] [place] [address], [place] [address] Jan, [facility] [address] [id number] [address] [place] [address], [place] [address] 22 Jan, 2014 [facility] [address] [id number] [address] [place] [address], [place] [address] 16 Jan, 2014 [facility] [address] [id number] [address] [place] [address], [place] [address] 16 Jan, 2014 [facility] [address] [id number] [address] [place] [address], [place] [address] 12 Jan, 2014 [facility] [address] [id number] [address] [place] [address], [place] [address] Jan, [facility] [address] [id number] [address] [place] [address], [place] [address] Jan, [facility] [address] [id number] [address] [place] [address], [place] [address] Dec, [facility] [address] [id number] [address] [place] [address] [place] [address] Dec, [facility] [address] [id number] [address] [place] [address], [place] [address] Dec, [facility] [address] [id number] [address] [place] [address], [place] [address] Dec, [facility] [address] [id number] [address] [place] [address], [place] [address] Dec, [facility] [address] [id number] [address] [place] [address], [place] [address] Dec, [facility] [address] [id number] [address] [place] [address], [place] [address] Dec, [facility] [address] [id number] [address] [place] [address], [place] [address] Dec, [facility] [address] [id number] [address] [place] [address], [place] [address] Oct, [facility] [address] [id number] [address] [place] [address], [place] [address] Oct, [facility] [address] [id number] [address] [place] [address], [place] [address] September, [facility] [address] [id number] [address] [place] [address], [place] [address] September, [facility] [address] [id number] [address] [place] [address], [place] [address] September, [facility] [address] [id number] [address] [place] [address], [place] [address] September, [facility] [address] [id number] [address] [place] [address], [place] [address] September, [facility] [address] [id number] [address] [place] [address], [place] [address] September, [facility] [address] [id number] [address] [place] [address], [place] [address] September, [facility] [address] [id number] [address] [place] [address], [place] [address] 15 Aug, 2013 [facility] [address] [id number] [address] [place] [address], [place] [address] Aug, [facility] [address] [id number] [address] [place] [address], [place] [address] 24 Jul, 2013 [facility] [address] [id number] [address] [place] [address], [place] [address] 24 Jul, 2013 [facility] [address] [id number] [address] [place] [address], [place] [address] Jul, [facility] [address] [id number] [address] [place] [address], [place] [address] Jul, [facility] [address] [id number] [address] [place] [address], [place] [address] Jul, [facility] [address] [id number] [address] [place] [address], [place] [address] Jul, [facility] [address] [id number] [address] [place] [address], [place] [address] Jul, [facility] [address] [id number] [address] [place] [address], [place] [address] Jul, [facility] [address] [id number] [address] [place] [address], [place] [address] May, [facility] [address] [id number] [address] [place] [address], [place] [address] May, [facility] [address] [id number] [address] [place] [address], [place] [address] May, [facility] [address] [id number] [address] [place] [address], [place] [address] May, [facility] [address] [id number] [address] [place] [address], [place] [address] 18 Apr, 2013 [facility] [address] [id number] [address] [place] [address] Mar, [facility] [address] [id number] [address] [place] [address], [place] [address] Mar, [facility] [address] [id number] [address] [place] [address] Mar, [facility] [address] [id number] [address] [place] [address] Mar, [facility] [address] [id number] [address] [place] [address] Mar, [facility] [address] [id number] [address] [place] [address], [place] [address] Mar, [facility] [address] [id number] [address] [place] [address] Mar, [facility] [address] [id number] [address] [place] [address] Mar, [facility] [address] [id number] [address] [place] [address] Mar, [facility] [address] [id number] [address] [place] [address] Mar, [facility] [address] [id number] [address] [place] [address] Mar, [facility] [address] [id number] [address] [place] [address] 04 Mar, 2013 [facility] [address] [id number] [address] [place] [address] 15 Feb, 2013 [facility] [address] [id number] [address] [place] [address] 15 Feb, 2013 [facility] [address] [id number] [address] [place] [address] 11 Feb, 2013 [facility] [address] [id number] [address] [place] [address] 11 Feb, 2013 [facility] [address] [id number] [address] [place] [address], [place] [address] Feb, [facility] [address] [id number] [address] [place] [address], [place] [address] Jan, [facility] [address] [id number] [address] [place] [address], [place] [address] Dec, [facility] [address] [id number] [address] [place] [address], [place] [address] Dec, [facility] [address] [id number] [address] [place] [address], [place] [address] Dec, [facility] [address] [id number] [address] [place] [address], [place] [address] Nov, [facility] [address] [id number] [address] [place] [address], [place] [address] Nov, [facility] [address] [id number] [address] [place] [address], [place] [address] Nov, [facility] [address] [id number] [address] [place] [address], [place] [address] Oct, [facility] [address] [id number] [address] [place] [address], [place] [address] Oct, [facility] [address] [id number] [address] [place] [address], [place] [address] Oct, [facility] [address] [id number] [address] [place] [address], [place] [address] September, [facility] [address] [id number] [address] [place] [address], [place] [address] September, [facility] [address] [id number] [address] [place] [address], [place] [address] September, [facility] [address] [id number] [address] [place] [address], [place] [address] September, [facility] [address] [id number] [address] [place] [address], [place] [address] September, [facility] [address] [id number] [address] [place] [address], [place] [address] Aug, [facility] [address] [id number] [address] [place] [address], [place] [address] Aug, [facility] [address] [id number] [address] [place] [address], [place] [address] Aug, [facility] [address] [id number] [address] [place] [address], [place] [address] Jul, [facility] [address] [id number] [address] [place] [address], [place] [address] Jul, [facility] [address] [id number] [address] [place] [address], [place] [address] Jul, [facility] [address] [id number] [address] [place] [address], [place] [address] Jul, [facility] [address] [id number] [address] [place] [address], [place] [address] Jul, [facility] [address] [id number] [address] [place] [address], [place] [address] Jul, [facility] [address] [id number] [address] [place] [address], [place] [address] Jul, [facility] [address] [id number] [address] [place] [address], [place] [address] May, [facility] [address] [id number] [address] [place] [address], [place] [address] May, [facility] [address] [id number] [address] [place] [address], [place] [address] May, [facility] [address] [id number] [address] [place] [address], [place] [address] Apr, [facility] [address] [id number] [address] [place] [address], [place] [address] Apr, [facility] [address] [id number] [address] [place] [address], [place] [address] Apr, [facility] [address] [id number] [address] [place] [address], [place] [address] Apr, [facility] [address] [id number] [address] [place] [address], [place] [address] Apr, [facility] [address] [id number] [address] [place] [address], [place] [address] Mar, [facility] [address] [id number] [address] [place] [address], [place] [address] Mar, [facility] [address] [id number] [address] [place] [address], [place] [address] Mar, [facility] [address] [id number] [address] [place] [address], [place] [address] Mar, [facility] [address] [id number] [address] [place] [address], [place] [address] Feb, [facility] [address] [id number] [address] [place] [address], [place] [address] Feb, [facility] [address] [id number] [address] [place] [address], [place] [address] Feb, [facility] [address] [id number] [address] [place] [address], [place] [address] Feb, [facility] [address] [id number] [address] [place] [address], [place] [address] Feb, [facility] [address] [id number] [address] [place] [address], [place] [address] Jan, [facility] [address] [id number] [address] [place] [address], [place] [address] Dec, [facility] [address] [id number] [address] [place] [address], [place] [address] Dec, [facility] [address] [id number] [address] [place] [address], [place] [address] Dec, [facility] [address] [id number] [address] [place] [address], [place] [address] Nov, [facility] [address] [id number] [address] [place] [address], [place] [address] Nov, [facility] [address] [id number] [address] [place] [address], [place] [address] Nov, [facility] [address] [id number] [address] [place] [address], [place] [address] Oct, [facility] [address] [id number] [address] [place] [address], [place] [address] Oct, [facility] [address] [id number] [address] [place] [address], [place] [address] Oct, [facility] [address] [id number] [address] [place] [address], [place] [address] Oct, [facility] [address] [id number] [address] [place] [address], [place] [address] September, [facility] [address] [id number] [address] [place] [address], [place] [address] September, [facility] [address] [id number] [address] [place] [address], [place] [address] 30 Aug, 2011 [facility] [address] [id number] [address] [place] [address], [place] [address] Aug, [facility] [address] [id number] [address] [place] [address], [place] [address] Aug, [facility] [address] [id number] [address] [place] [address], [place] [address] Aug, [facility] [address] [id number] [address] [place] [address], [place] [address] 06 Aug, 2011 [facility] [address] [id number] [address] [place] [address], [place] [address] 05 Aug, 2011 [facility] [address] [id number] [address] [place] [address] 05 Aug, 2011 [facility] [address] [id number] [address] [place] [address], [place] [address] Jul, [facility] [address] [id number] [address] [place] [address], [place] [address] Jul, [facility] [address] [id number] [address] [place] [address], [place] [address] Jul, [facility] [address] [id number] [address] [place] [address], [place] [address] May, [facility] [address] [id number] [address] [place] [address], [place] [address] May, [facility] [address] [id number] [address] [place] [address], [place] [address] May, [facility] [address] [id number] [address] [place] [address] Apr, [facility] [address] [id number] [address] [place] [address], [place] [address] Apr, [facility] [address] [id number] [address] [place] [address], [place] [address] Mar, [facility] [address] [id number] [address] [place] [address], [place] [address] Mar, [facility] [address] [id number] [address] [place] [address], [place] [address] Mar, [facility] [address] [id number] [address] [place] [address] Mar, [facility] [address] [id number] [address] [place] [address], [place] [address] Mar, [facility] [address] [id number] [address] [place] [address], [place] [address] Mar, [facility] [address] [id number] [address] [place] [address], [place] [id number] Feb, [facility] [address] [facility] [id number] [address] [address] 14 Feb, 2011 [facility] [address] [facility] [id number] [address] [place] [address] Feb, IMMUNIZATIONS No Known Immunizations SOCIAL HISTORY Never Assessed REASON FOR VISIT EMR-[facility] [place] PLAN OF CARE VITAL SIGNS MEDICATIONS Unknown [...]
--- OUTSIDE RECORDS SUMMARY | 2020-01-03 07:55 | XMS REPORT ---
Author Author Tra Landeros Doctor Organization [facility] Address Unknown Phone Unavailable Care Team Providers Care Commuter Train Operator Name Role Phone Migration, Doctor Unavailable Unavailable PROBLEMS Type Condition ICD9-CM Code [id number] Code Onset Dates Condition S tatus SNOMED Code Problem Insulin long-term use Z79.4 Active 446448534 Problem Hypertension I10 Active 3102691 3 Problem Diabetes E11.9 Active 75334216 Problem Hypoxia R09.02 Active 222927861 Problem Anxiety F41.9 Active 43337107 Problem Port catheter in place Z95.828 Active 360720257 Problem Pressure ulcer of other site, stage 3 L89.893 Active 606257709 Problem COPD (chronic obstructive pulmonary disease) J44.9 Active 16315769 Problem Type 2 diabetes mellitus wit h diabetic peripheral angiopathy without gangrene E11.51 Active 006382128 Problem Back pain M54.9 Active 909110886 Problem PAD (peripheral artery disease) I73.9 Active 424049517 Problem Lumbar radiculopathy, chronic M54.16 Active 795868594 Problem Recurrent major depressive disorder, in full remission F33.42 Active 252968342 Problem retirement current use of insulin Z79.4 Active 550598778 ALLERGIES No Information ENCOUNTERS Encounter Location Date Diagnosis [facility] [address] [facility] [id number] [place] [phone] September, Back pain M54.9 [facility] [address] [facility] [id number] [place] [id number] September, [facility] [address] [facility] [id number] [place] [phone] September, [facility] [address] [facility] [id number] [place] [phone] September, [facility] [address] [facility] [id number] [place] [phone] Aug, Back pain M54.9 [facility] [address] [id number] [address] [place] [id number] 17 Aug, 2018 Anxiety F41.9 [facility] [address] [id number] [address] [place] [id number] Aug, [facility] [address] [facility] [id number] [place] [address] Aug, Pressure ulcer of other site , stage 3 L89.893 and COPD (chronic obstructive pulmonary disease) J44.9 [facility] [address] [id number] [address] [place] [address] Aug, History of smoking Z87.891 [facility] [address] [facility] [id number] [place] [id number] Jul, Type 2 diabetes mellitus wit h diabetic peripheral angiopathy without gangrene E11.51 [facility] [address] [id number] [address] [place] [address] Jul, Back pain M54.9 [facility] [address] [id number] [address] [place] [phone] Jul, Anxiety F41.9 [facility] [address] [facility] [id number] [place] [address] Jul, [facility] [address] [id number] [address] [place] [address] Jul, Back pain M54.9 [facility] [address] [facility] [id number] [place] [address] Jul, Back pain M54.9 [facility] [address] [facility] [id number] [place] [address] Jul, Lumbar radiculopathy, chroni c M54.16 ; Hypertension I10 and Type 2 diabetes mellitus with diabetic peripheral angiopathy without gangrene E11.51 [facility] [address] [facility] [id number] [place] [phone] Jul, Back pain M54.9 [facility] [address] [id number] [address] [place] [id number] Jul, Back pain M54.9 and Anxiety F41.9 [facility] [address] [id number] [address] [place] [phone] Jul, [facility] [address] [id number] [address] [place] [address] May, Back pain M54.9 and Anxiety F41.9 [facility] [address] [id number] [address] [place] [address] May, [facility] [address] [id number] [address] [place] [address] Apr, Radiculopathy of lumbar rhiannon on M54.16 ; Back pain M54.9 and Anxiety F41.9 [facility] [address] [id number] [address] [place] [address] Apr, Diabetes E11.9 ; Muscle spas m M62.838 and Lumbar radiculopathy, chronic M54.16 [facility] [address] [id number] [address] [place] [address] Apr, [facility] [address] [id number] [address] [place] [address] Apr, [facility] [address] [id number] [address] [place] [phone] Mar, Back pain M54.9 and Anxiety F41.9 [facility] [address] [id number] [address] [place] [phone] Mar, [facility] [address] [id number] [address] [place] [phone] Mar, [facility] [address] [id number] [address] [place] [address] Mar, [facility] [address] [id number] [address] [place] [address] Mar, Encounter for immunization Z 23 [facility] [address] [id number] [address] [place] [id number] 31 Feb, 2018 Back pain M54.9 and Anxiety F41.9 [facility] [address] [id number] [address] [place] [phone] 04 Feb, 2018 Back pain M54.9 and Anxiety F41.9 [facility] [address] [id number] [address] [place] [address] Jan, Back pain M54.9 and Anxiety F41.9 [facility] [address] [id number] [address] [place] [address] Jan, [facility] [address] [id number] [address] [place] [address] Dec, [facility] [address] [id number] [address] [place] [address] Dec, Back pain M54.9 and Anxiety F41.9 [facility] [address] [id number] [address] [place] [address] Dec, Diabetes E11.9 ; Type 2 diab etes mellitus with diabetic peripheral angiopathy without gangrene E11.51 ; Lumbar radiculopathy, chronic M54.16 ; COPD (chronic obstructive pulmonary disease) J44.9 and Anxiety F41.9 [facility] [address] [id number] [address] [place] [phone] Dec, Back pain M54.9 and Anxiety F41.9 [facility] [address] [id number] [address] [place] [phone] Nov, Back pain M54.9 and Anxiety F41.9 [facility] [address] [id number] [address] [place] [id number] Oct, [facility] [address] [facility] [id number] [place] [phone] Oct, Back pain M54.9 and Anxiety F41.9 [facility] [address] [id number] [address] [place] [address] September, Anxiety F41.9 and Back pain M54.9 [facility] [address] [id number] [address] [place] [id number] September, Diabetes E11.9 ; Hypertensio n I10 ; COPD (chronic obstructive pulmonary disease) J44.9 and Lumbar radiculopathy, chronic M54.16 [facility] [address] [id number] [address] [place] [address] September, Anxiety F41.9 [facility] [address] [id number] [address] [place] [phone] Aug, [facility] [address] [id number] [address] [place] [address] Aug, [facility] [address] [id number] [address] [place] [address] Aug, Anxiety F41.9 and Back pain M54.9 [facility] [address] [id number] [address] [place] [address] Aug, Medicare annual wellness vis it, initial Z00.00 ; COPD (chronic obstructive pulmonary disease) J44.9 ; PAD (peripheral artery disease) I73.9 ; Insulin long-term use Z79.4 ; Hypertension I10 ; Anxiety F41.9 ; Recurrent major depressive disorder, in full remission F33.42 ; Pressure ulcer of other site, stage 3 L89.893 ; Type 2 diabetes mellitus with diabetic peripheral angiopathy without gangrene E11.51 and retirement current use of insulin Z79.4 [facility] [address] [id number] [address] [place] [id number] Jul, Back pain M54.9 [facility] [address] [id number] [address] [place] [phone] Jul, [facility] [address] [id number] [address] [place] [phone] 20 Jul, 2017 Anxiety F41.9 and Back pain M54.9 [facility] [address] [id number] [address] [place] [address] Jul, Diabetes E11.9 [facility] [address] [id number] [address] [place] [phone] May, [facility] [address] [id number] [address] [place] [address] May, Diabetes E11.9 ; Anxiety F41 .9 ; Back pain M54.9 and COPD (chronic obstructive pulmonary disease) J44.9 [facility] [address] [id number] [address] [place] [phone] May, Back pain M54.9 [facility] [address] [facility] [id number] [place] [phone] May, [facility] [address] [facility] [id number] [place] [address] Apr, Back pain M54.9 [facility] [address] [id number] [address] [place] [address] Mar, Back pain M54.9 [facility] [address] [facility] [id number] [place] [phone] Mar, [facility] [address] [facility] [id number] [place] [phone] 16 Mar, 2017 [facility] [address] [facility] [id number] [place] [address] 14 Mar, 2017 Radiculopathy of lumbar rhiannon on M54.16 [facility] [address] [facility] [id number] [place] [address] 13 Mar, 2017 [facility] [address] [facility] [id number] [place] [phone] 07 Mar, 2017 Encounter for immunization Z 23 and Lumbar radiculopathy, chronic M54.16 [facility] [address] [id number] [address] [place] [phone] Mar, Back pain M54.9 and Anxiety F41.9 [facility] [address] [id number] [address] [place] [phone] 10 Feb, 2017 Acute bilateral low back boy n with left-sided sciatica M54.42 and Acute bilateral low back pain with right-sided sciatica M54.41 [facility] [address] [id number] [address] [place] [address] Feb, [facility] [address] [id number] [address] [place] [address] Feb, Back pain M54.9 [facility] [address] [id number] [address] [place] [phone] 05 Jan, 2017 Back pain M54.9 and Anxiety F41.9 [facility] [address] [facility] [id number] [place] [id number] 05 Jan, 2017 Diabetes E11.9 [facility] [address] [facility] [id number] [place] [phone] 14 Dec, 2016 Diabetes E11.9 ; Back pain M 54.9 ; Anxiety F41.9 and Insulin long- term use Z79.4 [facility] [address] [id number] [address] [place] [phone] Dec, Anxiety F41.9 [facility] [address] [facility] [id number] [place] [address] Dec, Back pain M54.9 [facility] [address] [facility] [id number] [place] [phone] Nov, Back pain M54.9 [facility] [address] [facility] [id number] [place] [phone] Oct, Back pain M54.9 and Anxiety F41.9 [facility] [address] [facility] [id number] [place] [address] September, Back pain M54.9 [facility] [address] [id number] [address] [place] [phone] 15 Sep, 2016 Back pain M54.9 and Anxiety F41.9 [facility] [address] [id number] [address] [place] [address] Aug, Diabetes E11.9 ; Anxiety F41 .9 ; Back pain M54.9 and PAD (peripheral artery disease) I73.9 [facility] [address] [id number] [address] [place] [phone] Aug, Anxiety F41.9 [facility] [address] [id number] [address] [place] [phone] Aug, Back pain M54.9 [facility] [address] [id number] [address] [place] [address] Jul, Back pain M54.9 [facility] [address] [id number] [address] [place] [address] Jul, Back pain M54.9 [facility] [address] [id number] [address] [place] [id number] 23 Jul, 2016 Back pain M54.9 [facility] [address] [id number] [address] [place] [phone] 16 Jul, 2016 Dorsalgia M54.9 [facility] [address] [id number] [address] [place] [phone] 14 Jul, 2016 [facility] [address] [id number] [address] [place] [address] May, Back pain M54.9 [facility] [address] [facility] [id number] [place] [phone] 06 May, 2016 Diabetes E11.9 ; Anxiety F41 .9 ; Port catheter in place Z95.828 ; Encounter for immunization Z23 and Insulin long-term use Z79.4 [facility] [address] [id number] [address] [place] [id number] Apr, Back pain M54.9 [facility] [address] [id number] [address] [place] [phone] Apr, Back pain M54.9 [facility] [address] [id number] [address] [place] [address] Apr, [facility] [address] [id number] [address] [place] [address] Apr, Back pain M54.9 [facility] [address] [id number] [address] [place] [address] Mar, COPD (chronic obstructive pu lmonary disease) J44.9 [facility] [address] [id number] [address] [place] [phone] Feb, [facility] [address] [id number] [address] [place] [phone] Jan, [facility] [address] [id number] [address] [place] [phone] Jan, [facility] [address] [id number] [address] [place] [address] Jan, [facility] [address] [id number] [address] [place] [address] Jan, [facility] [address] [id number] [address] [place] [address] Dec, Diabetes E11.9 ; Hypoxia R09 .02 and Back pain M54.9 [facility] [address] [id number] [address] [place] [phone] Dec, [facility] [address] [id number] [address] [place] [address] Nov, [facility] [address] [id number] [address] [place] [phone] Oct, Anxiety F41.9 [facility] [address] [id number] [address] [place] [address] Oct, Back pain M54.9 [facility] [address] [id number] [address] [place] [address] September, Back pain M54.9 [facility] [address] [id number] [address] [place] [address] September, Diabetes E11.9 [facility] [address] [facility] [id number] [place] [address] September, [facility] [address] [id number] [address] [place] [id number] September, Diabetes E11.9 ; Insulin sarai g-term use Z79.4 and Back pain M54.9 [facility] [address] [facility] [id number] [place] [address] Aug, Back pain M54.9 [facility] [address] [facility] [id number] [place] [phone] Aug, Back pain M54.9 ; Anxiety F4 1.9 and Arthropathy, unspecified M12.9 [facility] [address] [id number] [address] [place] [address] Jul, Back pain M54.9 [facility] [address] [facility] [id number] [place] [address] Jul, Anxiety F41.9 [facility] [address] [id number] [address] [place] [address] Jul, Back pain M54.9 [facility] [address] [id number] [address] [place] [id number] Jul, [facility] [address] [facility] [id number] [place] [phone] Jul, [facility] [address] [facility] [id number] [place] [address] May, Back pain M54.9 ; Diabetes E 11.9 ; Insulin long-term use Z79.4 ; COPD (chronic obstructive pulmonary disease) J44.9 and Hypertension I10 [facility] [address] [facility] [id number] [place] [address] May, Chronic pain G89.29 [facility] [address] [facility] [id number] [place] [phone] Apr, [facility] [address] [facility] [id number] [place] [address] Apr, [facility] [address] [facility] [id number] [place] [address] Mar, [facility] [address] [facility] [id number] [place] [phone] Mar, Encounter for immunization Z 23 and Diabetes E11.9 [facility] [address] [facility] [id number] [place] [phone] Feb, [facility] [address] [facility] [id number] [place] [phone] Feb, [facility] [address] [facility] [id number] [place] [id number] Jan, [facility] [address] [place] [id number] [address] [place] [id number] Jan, [facility] [address] [facility] [id number] [place] [phone] Dec, [facility] [address] [facility] [id number] [place] [phone] Dec, [facility] [address] [facility] [id number] [place] [address] Dec, Unspecified arthropathy, sit e unspecified 716.90 and Diabetes mellitus type 2, uncontrolled 250.02 [facility] [address] [facility] [id number] [place] [address] Dec, [facility] [address] [place] [id number] [place] [address] Nov, [facility] [address] [id number] [address] [place] [address], [place] [address] Oct, [facility] [address] [id number] [address] [place] [address], [place] [address] September, [facility] [address] [id number] [address] [place] [address], [place] [address] September, [facility] [address] [id number] [address] [place] [address], [place] [address] September, [facility] [address] [id number] [address] [place] [address], [place] [address] September, [facility] [address] [id number] [address] [place] [address], [place] [address] Aug, [facility] [address] [id number] [address] [place] [address], [place] [address] Aug, [facility] [address] [id number] [address] [place] [address], [place] [address] 18 Jul, 2014 [facility] [address] [id number] [address] [place] [address], [place] [phone] 18 Jul, 2014 [facility] [address] [id number] [address] [place] [address], [place] [address] 16 Jul, 2014 [facility] [address] [id number] [address] [place] [address], [place] [address] 16 Jul, 2014 [facility] [address] [id number] [address] [place] [address], [place] [address] 16 Jul, 2014 [facility] [address] [id number] [address] [place] [address], [place] [address] 16 Jul, 2014 [facility] [address] [id number] [address] [place] [address], [place] [address] 16 Jul, 2014 [facility] [address] [id number] [address] [place] [address], [place] [address] 16 Jul, 2014 [facility] [address] [id number] [address] [place] [address], [place] [address] 16 Jul, 2014 [facility] [address] [id number] [address] [place] [address], [place] [address] Jul, 2014 [facility] [address] [id number] [address] [place] [address], [place] [address] 13 Jul, 2014 [facility] [address] [id number] [address] [place] [address], [place] [address] 09 Jul, 2014 [facility] [address] [id number] [address] [place] [address], [place] [address] 09 Jul, 2014 [facility] [address] [id number] [address] [place] [address], [place] [address] 17 Jul, 2014 [facility] [address] [id number] [address] [place] [address], [place] [address] 17 Jul, 2014 [facility] [address] [id number] [address] [place] [address], [place] [address] 16 Jul, 2014 [facility] [address] [id number] [address] [place] [address], [place] [address] 16 Jul, 2014 [facility] [address] [id number] [address] [place] [address], [place] [address] 16 Jul, 2014 [facility] [address] [id number] [address] [place] [address], [place] [address] 16 Jul, 2014 [facility] [address] [id number] [address] [place] [address], [place] [address] 16 Jul, 2014 [facility] [address] [id number] [address] [place] [address], [place] [address] 16 Jul, 2014 [facility] [address] [id number] [address] [place] [address], [place] [address] 16 Jul, 2014 [facility] [address] [id number] [address] [place] [id number] 16 Jul, 2014 [facility] [address] [id number] [address] [place] [id number] Jul, [facility] [address] [id number] [address] [place] [address], [place] [address] Jul, [facility] [address] [id number] [address] [place] [address], [place] [address] Jul, [facility] [address] [id number] [address] [place] [address], [place] [address] Jul, [facility] [address] [id number] [address] [place] [address], [place] [address] Jul, [facility] [address] [id number] [address] [place] [address], [place] [address] Jul, [facility] [address] [id number] [address] [place] [address], [place] [address] May, [facility] [address] [id number] [address] [place] [address], [place] [address] May, [facility] [address] [id number] [address] [place] [address], [place] [address] May, [facility] [address] [id number] [address] [place] [address], [place] [address] May, [facility] [address] [id number] [address] [place] [address], [place] [address] May, [facility] [address] [id number] [address] [place] [address], [place] [address] May, [facility] [address] [id number] [address] [place] [address] May, [facility] [address] [id number] [address] [place] [address], [place] [address] May, [facility] [address] [id number] [address] [place] [address], [place] [address] May, [facility] [address] [id number] [address] [place] [address] May, [facility] [address] [id number] [address] [place] [address], [place] [address] Apr, [facility] [address] [id number] [address] [place] [address], [place] [address] Apr, [facility] [address] [id number] [address] [place] [address], [place] [address] Apr, [facility] [address] [id number] [address] [place] [address], [place] [address] Apr, [facility] [address] [id number] [address] [place] [address], [place] [address] Apr, [facility] [address] [id number] [address] [place] [address], [place] [address] Apr, [facility] [address] [id number] [address] [place] [address], [place] [address] Mar, [facility] [address] [id number] [address] [place] [address], [place] [address] Mar, [facility] [address] [id number] [address] [place] [address], [place] [address] Mar, [facility] [address] [id number] [address] [place] [address], [place] [address] Mar, [facility] [address] [id number] [address] [place] [address], [place] [address] Mar, [facility] [address] [id number] [address] [place] [address], [place] [address] Mar, [facility] [address] [id number] [address] [place] [address], [place] [address] Mar, [facility] [address] [id number] [address] [place] [address], [place] [address] 17 Mar, 2014 [facility] [address] [id number] [address] [place] [address], [place] [address] 14 Mar, 2014 [facility] [address] [id number] [address] [place] [address], [place] [address] Mar, [facility] [address] [id number] [address] [place] [address], [place] [address] Mar, [facility] [address] [id number] [address] [place] [address], [place] [address] Feb, [facility] [address] [id number] [address] [place] [address], [place] [address] Feb, [facility] [address] [id number] [address] [place] [address] Feb, [facility] [address] [id number] [address] [place] [address], [place] [address] Feb, [facility] [address] [id number] [address] [place] [address] Feb, [facility] [address] [id number] [address] [place] [address], [place] [address] Feb, [facility] [address] [id number] [address] [place] [address], [place] [address] Feb, [facility] [address] [id number] [address] [place] [address], [place] [address] Feb, [facility] [address] [id number] [address] [place] [address], [place] [address] Feb, [facility] [address] [id number] [address] [place] [address], [place] [address] Feb, [facility] [address] [id number] [address] [place] [address] Jan, [facility] [address] [id number] [address] [place] [address], [place] [address] 22 Jan, 2014 [facility] [address] [id number] [address] [place] [address], [place] [address] 16 Jan, 2014 [facility] [address] [id number] [address] [place] [address], [place] [address] 16 Jan, 2014 [facility] [address] [id number] [facility] [place] [address] Jan, [facility] [address] [id number] [address] [place] [address], [place] [address] Jan, [facility] [address] [id number] [address] [place] [address], [place] [address] Jan, [facility] [address] [id number] [address] [place] [address], [place] [address] Dec, [facility] [address] [id number] [address] [place] [address], [place] [address] Dec, [facility] [address] [id number] [address] [place] [address], [place] [address] Dec, [facility] [address] [id number] [address] [place] [address], [place] [address] Dec, [facility] [address] [id number] [address] [place] [address], [place] [address] Dec, [facility] [address] [id number] [address] [place] [address], [place] [address] Dec, [facility] [address] [id number] [address] [place] [address], [place] [address] Dec, [facility] [address] [id number] [address] [place] [address], [place] [address] Dec, [facility] [address] [id number] [address] [place] [address], [place] [address] Oct, [facility] [address] [id number] [address] [place] [address], [place] [address] Oct, [facility] [address] [id number] [address] [place] [address], [place] [address] September, [facility] [address] [id number] [address] [place] [address], [place] [address] September, [facility] [address] [id number] [address] [place] [address], [place] [address] September, [facility] [address] [id number] [address] [place] [address], [place] [address] September, [facility] [address] [id number] [address] [place] [address], [place] [address] September, [facility] [address] [id number] [address] [place] [address], [place] [address] September, [facility] [address] [id number] [address] [place] [address], [place] [address] September, [facility] [address] [id number] [address] [place] [address], [place] [address] Aug, [facility] [address] [id number] [address] [place] [address], [place] [address] Aug, [facility] [address] [id number] [address] [place] [address], [place] [address] Jul, [facility] [address] [id number] [address] [place] [address], [place] [address] Jul, [facility] [address] [id number] [address] [place] [address], [place] [address] Jul, [facility] [address] [id number] [address] [place] [address], [place] [address] Jul, [facility] [address] [id number] [address] [place] [address], [place] [address] Jul, [facility] [address] [id number] [address] [place] [address], [place] [address] Jul, [facility] [address] [id number] [address] [place] [address], [place] [address] Jul, [facility] [address] [id number] [address] [place] [address], [place] [address] Jul, [facility] [address] [id number] [address] [place] [address], [place] [address] May, [facility] [address] [id number] [address] [place] [address], [place] [address] 15 May, 2013 [facility] [address] [id number] [address] [place] [address], [place] [address] 14 May, 2013 [facility] [address] [id number] [address] [place] [address], [place] [address] 14 May, 2013 [facility] [address] [id number] [address] [place] [address], [place] [address] 18 Apr, 2013 [facility] [address] [id number] [address] [place] [address], [place] [address] Mar, [facility] [address] [id number] [address] [place] [address], [place] [address] Mar, [facility] [address] [id number] [address] [place] [address], [place] [address] Mar, [facility] [address] [id number] [address] [place] [address], [place] [address] Mar, [facility] [address] [id number] [address] [place] [address], [place] [address] 18 Mar, 2013 [facility] [address] [id number] [address] [place] [address], [place] [address] Mar, [facility] [address] [id number] [address] [place] [address], [place] [address] 18 Mar, 2013 [facility] [address] [id number] [address] [place] [address], [place] [address] 18 Mar, 2013 [facility] [address] [id number] [address] [place] [address], [place] [address] Mar, [facility] [address] [id number] [address] [place] [address], [place] [address] Mar, [facility] [address] [id number] [address] [place] [address], [place] [address] Mar, [facility] [address] [id number] [address] [place] [address], [place] [address] Mar, [facility] [address] [id number] [address] [place] [address], [place] [address] 15 Feb, 2013 [facility] [address] [id number] [address] [place] [address], [place] [address] Feb, [facility] [address] [id number] [address] [place] [address], [place] [address] Feb, [facility] [address] [id number] [address] [place] [address], [place] [address] Feb, [facility] [address] [id number] [address] [place] [address], [place] [address] Feb, [facility] [address] [id number] [address] [place] [address], [place] [address] Jan, [facility] [address] [id number] [address] [place] [address], [place] [address] Dec, [facility] [address] [id number] [address] [place] [address], [place] [address] Dec, [facility] [address] [id number] [address] [place] [address], [place] [address] Dec, [facility] [address] [id number] [address] [place] [address], [place] [address] Nov, [facility] [address] [id number] [address] [place] [address], [place] [address] Nov, [facility] [address] [id number] [address] [place] [address] Nov, [facility] [address] [id number] [address] [place] [address], [place] [address] Oct, [facility] [address] [id number] [address] [place] [address], [place] [address] Oct, [facility] [address] [id number] [address] [place] [address] Oct, [facility] [address] [id number] [address] [place] [address], [place] [address] September, [facility] [address] [id number] [address] [place] [address], [place] [address] September, [facility] [address] [id number] [address] [place] [address], [place] [address] September, [facility] [address] [id number] [address] [place] [address], [place] [address] September, [facility] [address] [id number] [address] [place] [address], [place] [address] September, [facility] [address] [id number] [address] [place] [address], [place] [address] Aug, [facility] [address] [id number] [address] [place] [address], [place] [address] Aug, [facility] [address] [id number] [address] [place] [address], [place] [address] Aug, [facility] [address] [id number] [address] [place] [address], [place] [address] Jul, [facility] [address] [id number] [address] [place] [address], [place] [address] Jul, [facility] [address] [id number] [address] [place] [address], [place] [address] Jul, [facility] [address] [id number] [address] [place] [address], [place] [address] Jul, [facility] [address] [id number] [address] [place] [address], [place] [address] Jul, [facility] [address] [id number] [address] [place] [address], [place] [address] Jul, [facility] [address] [id number] [address] [place] [address], [place] [address] Jul, [facility] [address] [id number] [address] [place] [address], [place] [address] May, [facility] [address] [id number] [address] [place] [address], [place] [address] May, [facility] [address] [id number] [address] [place] [address], [place] [address] May, [facility] [address] [id number] [address] [place] [address], [place] [address] Apr, [facility] [address] [id number] [address] [place] [address], [place] [address] Apr, [facility] [address] [id number] [address] [place] [address], [place] [address] Apr, [facility] [address] [id number] [address] [place] [address], [place] [address] Apr, [facility] [address] [id number] [address] [place] [address], [place] [address] Apr, [facility] [address] [id number] [address] [place] [address], [place] [address] Mar, [facility] [address] [id number] [address] [place] [address], [place] [address] Mar, [facility] [address] [id number] [address] [place] [address], [place] [address] Mar, [facility] [address] [id number] [address] [place] [address], [place] [address] Mar, [facility] [address] [id number] [address] [place] [address], [place] [address] Feb, [facility] [address] [id number] [address] [place] [address], [place] [address] Feb, [facility] [address] [id number] [address] [place] [address], [place] [address] Feb, [facility] [address] [id number] [address] [place] [address], [place] [address] Feb, [facility] [address] [id number] [address] [place] [address], [place] [address] Feb, [facility] [address] [id number] [address] [place] [address], [place] [address] Jan, [facility] [address] [id number] [address] [place] [address], [place] [address] Dec, [facility] [address] [id number] [address] [place] [address], [place] [address] Dec, [facility] [address] [id number] [address] [place] [address], [place] [address] Dec, [facility] [address] [id number] [address] [place] [address], [place] [address] Nov, [facility] [address] [id number] [address] [place] [address], [place] [address] Nov, [facility] [address] [id number] [address] [place] [address], [place] [address] Nov, [facility] [address] [id number] [address] [place] [address], [place] [address] Oct, [facility] [address] [id number] [address] [place] [address], [place] [address] Oct, [facility] [address] [id number] [address] [place] [address], [place] [address] Oct, [facility] [address] [id number] [address] [place] [address], [place] [address] Oct, [facility] [address] [id number] [address] [place] [address], [place] [address] September, [facility] [address] [id number] [address] [place] [address], [place] [address] September, [facility] [address] [id number] [address] [place] [address], [place] [address] 30 Aug, 2011 [facility] [address] [id number] [address] [place] [address], [place] [address] Aug, [facility] [address] [id number] [address] [place] [address], [place] [address] 10 Aug, 2011 [facility] [address] [id number] [address] [place] [address], [place] [address] Aug, [facility] [address] [id number] [address] [place] [address], [place] [address] Aug, [facility] [address] [id number] [address] [place] [address], [place] [address] Aug, [facility] [address] [id number] [address] [place] [address], [place] [address] Aug, [facility] [address] [id number] [address] [place] [address], [place] [address] Jul, [facility] [address] [id number] [address] [place] [address], [place] [address] Jul, [facility] [address] [id number] [address] [place] [address], [place] [address] Jul, [facility] [address] [id number] [address] [place] [address], [place] [address] May, [facility] [address] [id number] [address] [place] [address], [place] [address] May, [facility] [address] [id number] [address] [place] [address], [place] [address] May, [facility] [address] [id number] [address] [place] [address], [place] [address] Apr, [facility] [address] [id number] [address] [place] [address], [place] [phone] Apr, [facility] [address] [id number] [address] [place] [address], [place] [phone] Mar, [facility] [address] [id number] [address] [place] [address], [place] [phone] Mar, [facility] [address] [id number] [address] [place] [address], [place] [phone] Mar, [facility] [address] [facility] [id number] [place] [phone] Mar, [facility] [address] [facility] [id number] [place] [id number] Mar, [facility] [address] [facility] [id number] [place] [phone] Mar, [facility] [address] [facility] [id number] [place] [phone] Feb, [facility] [address] [facility] [id number] [place] [phone] Feb, [facility] [address] [facility] [id number] [place] [phone] Feb, IMMUNIZATIONS No Known Immunizations SOCIAL HISTORY Never Assessed REASON FOR VISIT [facility] [place] PLAN OF CARE VITAL [...]
--- OUTSIDE RECORDS SUMMARY | 2020-01-03 07:55 | XMS REPORT ---
Author Author Tra Landeros Doctor Organization [facility] Address Unknown Phone Unavailable Care Team Providers Care Trial Management Associate Name Role Phone Migration, Doctor Unavailable Unavailable PROBLEMS Type Condition ICD9-CM Code QBE79-DS Code Onset Dates Condition S tatus SNOMED Code Problem Insulin long-term use Z79.4 Active 631468248 Problem Hypertension I10 Active 0431988 3 Problem Diabetes E11.9 Active 74451174 Problem Hypoxia R09.02 Active 532372294 Problem Anxiety F41.9 Active 04144179 Problem Port catheter in place Z95.828 Active 704675220 Problem Pressure ulcer of other site, stage 3 L89.893 Active 114074332 Problem COPD (chronic obstructive pulmonary disease) J44.9 Active 12101052 Problem Type 2 diabetes mellitus wit h diabetic peripheral angiopathy without gangrene E11.51 Active 021068957 Problem Back pain M54.9 Active 972618347 Problem PAD (peripheral artery disease) I73.9 Active 523050108 Problem Lumbar radiculopathy, chronic M54.16 Active 672357985 Problem Recurrent major depressive disorder, in full remission F33.42 Active 049081913 Problem retirement current use of insulin Z79.4 Active 803577417 ALLERGIES No Information ENCOUNTERS Encounter Location Date Diagnosis [place] [id number] [place] [phone] Aug, Back pain M54.9 [facility] [address] [facility] [id number] [address] [place] [id number] Aug, Anxiety F41.9 [place] [address] [place] [id number] [address] [place] [id number] Aug, [place] [address] [place] [id number] [address] [place] [id number] Aug, Pressure ulcer of other site , stage 3 L89.893 and COPD (chronic obstructive pulmonary disease) J44.9 [place] [address] [id number] [address] [place] [id number] 03 Aug, 2018 History of smoking Z87.891 [facility] [address] [id number] [address] [place] [phone] Jul, Type 2 diabetes mellitus wit h diabetic peripheral angiopathy without gangrene E11.51 [facility] [address] [id number] [address] [place] [id number] Jul, Back pain M54.9 [facility] [address] [id number] [address] [place] [id number] Jul, Anxiety F41.9 [facility] [address] [id number] [address] [place] [id number] Jul, [facility] [address] [id number] [address] [place] [id number] Jul, Back pain M54.9 [facility] [address] [id number] [address] [place] [phone] Jul, Back pain M54.9 [facility] [address] [id number] [address] [place] [id number] Jul, Lumbar radiculopathy, chroni c M54.16 ; Hypertension I10 and Type 2 diabetes mellitus with diabetic peripheral angiopathy without gangrene E11.51 [facility] [address] [id number] [address] [place] [phone] 25 Jul, 2018 Back pain M54.9 [facility] [address] [id number] [address] [place] [phone] Jul, Back pain M54.9 and Anxiety F41.9 [facility] [address] [id number] [address] [place] [id number] Jul, [facility] [address] [facility] [id number] [address] [place] [id number] May, Back pain M54.9 and Anxiety F41.9 [facility] [address] [id number] [address] [place] [id number] May, [facility] [address] [id number] [address] [place] [id number] Apr, Radiculopathy of lumbar rhiannon on M54.16 ; Back pain M54.9 and Anxiety F41.9 [facility] [address] [id number] [address] [place] [id number] Apr, Diabetes E11.9 ; Muscle spas m M62.838 and Lumbar radiculopathy, chronic M54.16 [facility] [address] [id number] [address] [place] [id number] Apr, [facility] [address] [id number] [address] [place] [phone] Apr, [facility] [address] [id number] [address] [place] [phone] Mar, Back pain M54.9 and Anxiety F41.9 [facility] [address] [id number] [address] [place] [phone] Mar, [facility] [address] [id number] [address] [place] [id number] Mar, [facility] [address] [id number] [address] [place] [phone] Mar, [facility] [address] [id number] [address] [place] [phone] Mar, Encounter for immunization Z 23 [facility] [address] [id number] [address] [place] [phone] Feb, Back pain M54.9 and Anxiety F41.9 [facility] [address] [id number] [address] [place] [phone] 04 Feb, 2018 Back pain M54.9 and Anxiety F41.9 [facility] [address] [id number] [address] [place] [phone] Jan, Back pain M54.9 and Anxiety F41.9 [facility] [address] [id number] [address] [place] [phone] Jan, [facility] [address] [id number] [address] [place] [phone] Dec, [facility] [address] [id number] [address] [place] [phone] Dec, Back pain M54.9 and Anxiety F41.9 [facility] [address] [id number] [address] [place] [id number] Dec, Diabetes E11.9 ; Type 2 diab etes mellitus with diabetic peripheral angiopathy without gangrene E11.51 ; Lumbar radiculopathy, chronic M54.16 ; COPD (chronic obstructive pulmonary disease) J44.9 and Anxiety F41.9 [place] [address] [id number] [address] [place] [phone] Dec, Back pain M54.9 and Anxiety F41.9 [facility] [address] [id number] [address] [place] [id number] Nov, Back pain M54.9 and Anxiety F41.9 [facility] [address] [id number] [address] [place] [phone] Oct, [facility] [address] [id number] [address] [place] [phone] Oct, Back pain M54.9 and Anxiety F41.9 [facility] [address] [id number] [address] [place] [phone] September, Anxiety F41.9 and Back pain M54.9 [facility] [address] [id number] [address] [place] [id number] September, Diabetes E11.9 ; Hypertensio n I10 ; COPD (chronic obstructive pulmonary disease) J44.9 and Lumbar radiculopathy, chronic M54.16 [facility] [address] [id number] [address] [place] [id number] September, Anxiety F41.9 [facility] [address] [id number] [address] [place] [id number] Aug, [facility] [address] [id number] [address] [place] [id number] Aug, [facility] [address] [facility] [id number] [address] [place] [phone] Aug, Anxiety F41.9 and Back pain M54.9 [facility] [address] [facility] [id number] [address] [place] [phone] Aug, Medicare annual wellness vis it, initial [...] and retirement current use of insulin Z79.4 [place] [address] [id number] [address] [place] [phone] Jul, Back pain M54.9 [facility] [address] [facility] [id number] [address] [place] [phone] Jul, [facility] [address] [id number] [address] [place] [phone] Jul, Anxiety F41.9 and Back pain M54.9 [facility] [address] [id number] [address] [place] [id number] Jul, Diabetes E11.9 [facility] [address] [facility] [id number] [address] [place] [id number] May, [facility] [address] [facility] [id number] [address] [place] [id number] May, Diabetes E11.9 ; Anxiety F41 .9 ; Back pain M54.9 and COPD (chronic obstructive pulmonary disease) J44.9 [facility] [address] [id number] [address] [place] [id number] May, Back pain M54.9 [facility] [address] [id number] [address] [place] [phone] May, [facility] [address] [id number] [address] [place] [id number] Apr, Back pain M54.9 [facility] [address] [id number] [address] [place] [id number] Mar, Back pain M54.9 [facility] [address] [id number] [address] [place] [id number] Mar, [facility] [address] [id number] [address] [place] [phone] Mar, [facility] [address] [id number] [address] [place] [id number] 14 Mar, 2017 Radiculopathy of lumbar rhiannon on M54.16 [facility] [address] [facility] [id number] [address] [place] [id number] 13 Mar, 2017 [facility] [address] [facility] [id number] [address] [place] [phone] 07 Mar, 2017 Encounter for immunization Z 23 and Lumbar radiculopathy, chronic M54.16 [facility] [address] [id number] [address] [place] [phone] Mar, Back pain M54.9 and Anxiety F41.9 [facility] [address] [facility] [id number] [address] [place] [phone] 10 Feb, 2017 Acute bilateral low back boy n with left-sided sciatica M54.42 and Acute bilateral low back pain with right-sided sciatica M54.41 [facility] [address] [facility] [id number] [address] [place] [phone] Feb, [facility] [address] [id number] [address] [place] [id number] Feb, Back pain M54.9 [facility] [address] [id number] [address] [place] [id number] 05 Jan, 2017 Back pain M54.9 and Anxiety F41.9 [facility] [address] [facility] [id number] [address] [place] [id number] 05 Jan, 2017 Diabetes E11.9 [facility] [address] [id number] [address] [place] [id number] Dec, Diabetes E11.9 ; Back pain M 54.9 ; Anxiety F41.9 and Insulin long- term use Z79.4 [facility] [address] [facility] [id number] [address] [place] [phone] Dec, Anxiety F41.9 [facility] [address] [facility] [id number] [address] [place] [id number] Dec, Back pain M54.9 [facility] [address] [facility] [id number] [address] [place] [phone] Nov, Back pain M54.9 [facility] [address] [facility] [id number] [address] [place] [phone] Oct, Back pain M54.9 and Anxiety F41.9 [facility] [address] [facility] [id number] [address] [place] [id number] September, Back pain M54.9 [facility] [address] [id number] [address] [place] [phone] September, Back pain M54.9 and Anxiety F41.9 [facility] [address] [facility] [id number] [address] [place] [id number] Aug, Diabetes E11.9 ; Anxiety F41 .9 ; Back pain M54.9 and PAD (peripheral artery disease) I73.9 [facility] [address] [facility] [id number] [address] [place] [phone] Aug, Anxiety F41.9 [facility] [address] [id number] [address] [place] [id number] Aug, Back pain M54.9 [facility] [address] [id number] [address] [place] [phone] Jul, Back pain M54.9 [facility] [address] [id number] [address] [place] [id number] Jul, Back pain M54.9 [facility] [address] [id number] [address] [place] [id number] Jul, Back pain M54.9 [facility] [address] [id number] [address] [place] [id number] 16 Jul, 2016 Dorsalgia M54.9 [facility] [address] [id number] [address] [place] [id number] Jul, [facility] [address] [id number] [address] [place] [phone] May, Back pain M54.9 [facility] [address] [id number] [address] [place] [phone] May, Diabetes E11.9 ; Anxiety F41 .9 ; Port catheter in place Z95.828 ; Encounter for immunization Z23 and Insulin long-term use Z79.4 [facility] [address] [id number] [address] [place] [id number] Apr, Back pain M54.9 [facility] [address] [id number] [address] [place] [phone] Apr, Back pain M54.9 [facility] [address] [id number] [address] [place] [id number] Apr, [facility] [address] [id number] [address] [place] [id number] Apr, Back pain M54.9 [facility] [address] [id number] [address] [place] [phone] Mar, COPD (chronic obstructive pu lmonary disease) J44.9 [facility] [address] [id number] [address] [place] [phone] Feb, [facility] [address] [id number] [address] [place] [id number] 30 Jan, 2016 [facility] [address] [id number] [address] [place] [phone] Jan, [facility] [address] [id number] [address] [place] [phone] Jan, [facility] [address] [id number] [address] [place] [phone] Jan, [facility] [address] [id number] [address] [place] [id number] Dec, Diabetes E11.9 ; Hypoxia R09 .02 and Back pain M54.9 [facility] [address] [id number] [address] [place] [id number] Dec, [facility] [address] [id number] [address] [place] [phone] Nov, [facility] [address] [id number] [address] [place] [id number] Oct, Anxiety F41.9 [facility] [address] [id number] [address] [place] [id number] Oct, Back pain M54.9 [facility] [address] [id number] [address] [place] [id number] September, Back pain M54.9 [facility] [address] [id number] [address] [place] [phone] September, Diabetes E11.9 [facility] [address] [id number] [address] [place] [id number] September, [facility] [address] [id number] [address] [place] [id number] September, Diabetes E11.9 ; Insulin sarai g-term use Z79.4 and Back pain M54.9 [facility] [address] [id number] [address] [place] [id number] Aug, Back pain M54.9 [facility] [address] [id number] [address] [place] [id number] Aug, Back pain M54.9 ; Anxiety F4 1.9 and Arthropathy, unspecified M12.9 [facility] [address] [id number] [address] [place] [id number] Jul, Back pain M54.9 [facility] [address] [id number] [address] [place] [id number] Jul, Anxiety F41.9 [facility] [address] [facility] [id number] [address] [place] [phone] Jul, Back pain M54.9 [facility] [address] [id number] [address] [place] [phone] Jul, [facility] [address] [facility] [id number] [address] [place] [phone] Jul, [facility] [address] [facility] [id number] [address] [place] [id number] May, Back pain M54.9 ; Diabetes E 11.9 ; Insulin long-term use Z79.4 ; COPD (chronic obstructive pulmonary disease) J44.9 and Hypertension I10 [facility] [address] [id number] [address] [place] [phone] May, Chronic pain G89.29 [facility] [address] [facility] [id number] [address] [place] [phone] Apr, [facility] [address] [facility] [id number] [address] [place] [phone] Apr, [facility] [address] [facility] [id number] [address] [place] [phone] Mar, [facility] [address] [id number] [address] [place] [phone] Mar, Encounter for immunization Z 23 and Diabetes E11.9 [facility] [address] [id number] [address] [place] [id number] Feb, [facility] [address] [id number] [address] [place] [phone] Feb, [facility] [address] [id number] [address] [place] [id number] Jan, [facility] [address] [id number] [address] [place] [phone] Jan, [facility] [address] [id number] [address] [place] [phone] Dec, [facility] [address] [id number] [address] [place] [phone] Dec, [facility] [address] [id number] [address] [place] [id number] Dec, Unspecified arthropathy, sit e unspecified 716.90 and Diabetes mellitus type 2, uncontrolled 250.02 [facility] [address] [id number] [address] [place] [phone] Dec, [facility] [address] [id number] [address] [place] [phone] Nov, [facility] [address] [id number] [address] [place] [id number] Oct, [facility] [address] [id number] [address] [place] [phone] September, [facility] [address] [id number] [address] [place] [phone] September, [facility] [address] [id number] [address] [place] [id number] September, [facility] [address] [id number] [facility] [place] [address] 11 Sep, 2014 [facility] [address] [id number] [address] [place] [address], [place] [address] 14 Aug, 2014 [facility] [address] [id number] [address] [place] [address], [place] [address] 13 Aug, 2014 [facility] [address] [id number] [address] [place] [address], [place] [address] 18 Jul, 2014 [facility] [address] [id number] [address] [place] [address], [place] [address] 18 Jul, 2014 [facility] [address] [id number] [address] [place] [address], [place] [address] 16 Jul, 2014 [facility] [address] [id number] [address] [place] [address], [place] [address] 16 Jul, 2014 [facility] [address] [id number] [address] [place] [address], [place] [id number] 16 Jul, 2014 [facility] [address] [id number] [address] [place] [address], [place] [id number] 16 Jul, 2014 [facility] [address] [id number] [address] [place] [address], [place] [id number] 16 Jul, 2014 [facility] [address] [id number] [address] [place] [address], [place] [id number] 16 Jul, 2014 [facility] [address] [id number] [address] [place] [address], [place] [id number] 16 Jul, 2014 [facility] [address] [id number] [address] [place] [address], [place] [id number] 13 Jul, 2014 [facility] [address] [id number] [address] [place] [address], [place] [id number] 13 Jul, 2014 [facility] [address] [id number] [address] [place] [address], [place] [id number] 09 Jul, 2014 [facility] [address] [id number] [address] [place] [address], [place] [id number] 09 Jul, 2014 [facility] [address] [id number] [address] [place] [address], [place] [id number] 17 Jul, 2014 [facility] [address] [id number] [address] [place] [address], [place] [id number] 17 Jul, 2014 [facility] [address] [id number] [address] [place] [address], [place] [id number] 16 Jul, 2014 [facility] [address] [id number] [address] [place] [address], [place] [id number] 16 Jul, 2014 [facility] [address] [id number] [address] [place] [address], [place] [id number] 16 Jul, 2014 [facility] [address] [id number] [address] [place] [address], [place] [id number] 16 Jul, 2014 [facility] [address] [id number] [address] [place] [address], [place] [id number] 16 Jul, 2014 [facility] [address] [id number] [address] [place] [address], [place] [id number] 16 Jul, 2014 [facility] [address] [id number] [address] [place] [address], [place] [id number] 16 Jul, 2014 [facility] [address] [id number] [address] [place] [id number] 16 Jul, 2014 [facility] [address] [address] [id number] [address] [place] [id number] 16 Jul, 2014 [facility] [address] [id number] [address] [place] [address], [place] [address] 16 Jul, 2014 [facility] [address] [id number] [address] [place] [address], [place] [address] 16 Jul, 2014 [facility] [address] [id number] [address] [place] [id number] 16 Jul, 2014 [facility] [address] [id number] [address] [place] [id number] Jul, [facility] [address] [id number] [address] [place] [address], [place] [address] Jul, [facility] [address] [id number] [address] [place] [address], [place] [address] May, [facility] [address] [id number] [address] [place] [address], [place] [address] May, [facility] [address] [id number] [address] [place] [address], [place] [address] May, [facility] [address] [id number] [address] [place] [address], [place] [address] May, [facility] [address] [id number] [address] [place] [address], [place] [address] May, [facility] [address] [id number] [address] [place] [address], [place] [address] May, [facility] [address] [id number] [address] [place] [address], [place] [address] May, [facility] [address] [id number] [address] [place] [address], [place] [address] May, [facility] [address] [id number] [address] [place] [address], [place] [address] May, [facility] [address] [id number] [address] [place] [address], [place] [address] May, [facility] [address] [id number] [address] [place] [address], [place] [address] Apr, [facility] [address] [id number] [address] [place] [address], [place] [address] Apr, [facility] [address] [id number] [address] [place] [address], [place] [address] Apr, [facility] [address] [id number] [address] [place] [address], [place] [address] Apr, [facility] [address] [id number] [address] [place] [address], [place] [address] Apr, [facility] [address] [id number] [address] [place] [address], [place] [address] Apr, [facility] [address] [id number] [address] [place] [address], [place] [address] Mar, [facility] [address] [id number] [address] [place] [address], [place] [address] Mar, [facility] [address] [id number] [address] [place] [address], [place] [address] Mar, [facility] [address] [id number] [address] [place] [address], [place] [address] Mar, [facility] [address] [id number] [address] [place] [address], [place] [address] Mar, [facility] [address] [id number] [address] [place] [address], [place] [address] Mar, [facility] [address] [id number] [address] [place] [address], [place] [address] Mar, [facility] [address] [id number] [address] [place] [address], [place] [address] Mar, [facility] [address] [id number] [address] [place] [address], [place] [address] Mar, [facility] [address] [id number] [address] [place] [address], [place] [address] Mar, [facility] [address] [id number] [address] [place] [address], [place] [address] Mar, [facility] [address] [id number] [address] [place] [address], [place] [address] Feb, [facility] [address] [id number] [address] [place] [address], [place] [address] Feb, [facility] [address] [id number] [address] [place] [address], [place] [address] Feb, [facility] [address] [id number] [address] [place] [address], [place] [address] 15 Feb, 2014 [facility] [address] [id number] [address] [place] [address], [place] [address] Feb, [facility] [address] [id number] [address] [place] [address], [place] [address] Feb, [facility] [address] [id number] [address] [place] [address], [place] [address] Feb, [facility] [address] [id number] [address] [place] [address], [place] [address] Feb, [facility] [address] [id number] [address] [place] [address], [place] [address] Feb, [facility] [address] [id number] [address] [place] [address], [place] [address] Feb, [facility] [address] [id number] [address] [place] [address], [place] [address] Jan, [facility] [address] [id number] [address] [place] [address], [place] [address] 22 Jan, 2014 [facility] [address] [id number] [address] [place] [address], [place] [address] 16 Jan, 2014 [facility] [address] [id number] [address] [place] [address], [place] [address] 16 Jan, 2014 [facility] [address] [id number] [address] [place] [address], [place] [address] 12 Jan, 2014 [facility] [address] [id number] [address] [place] [address], [place] [address] Jan, [facility] [address] [id number] [address] [place] [address], [place] [address] Jan, [facility] [address] [id number] [address] [place] [address], [place] [address] Dec, [facility] [address] [id number] [address] [place] [address] [place] [address] Dec, [facility] [address] [id number] [address] [place] [address], [place] [address] Dec, [facility] [address] [id number] [address] [place] [address], [place] [address] Dec, [facility] [address] [id number] [address] [place] [address], [place] [address] Dec, [facility] [address] [id number] [address] [place] [address], [place] [address] Dec, [facility] [address] [id number] [address] [place] [address], [place] [address] Dec, [facility] [address] [id number] [address] [place] [address], [place] [address] Dec, [facility] [address] [id number] [address] [place] [address], [place] [address] Oct, [facility] [address] [id number] [address] [place] [address], [place] [address] Oct, [facility] [address] [id number] [address] [place] [address], [place] [address] September, [facility] [address] [id number] [address] [place] [address], [place] [address] September, [facility] [address] [id number] [address] [place] [address], [place] [address] September, [facility] [address] [id number] [address] [place] [address], [place] [address] September, [facility] [address] [id number] [address] [place] [address], [place] [address] September, [facility] [address] [id number] [address] [place] [address], [place] [address] September, [facility] [address] [id number] [address] [place] [address], [place] [address] September, [facility] [address] [id number] [address] [place] [address], [place] [address] 15 Aug, 2013 [facility] [address] [id number] [address] [place] [address], [place] [address] Aug, [facility] [address] [id number] [address] [place] [address], [place] [address] 24 Jul, 2013 [facility] [address] [id number] [address] [place] [address], [place] [address] 24 Jul, 2013 [facility] [address] [id number] [address] [place] [address], [place] [address] Jul, [facility] [address] [id number] [address] [place] [address], [place] [address] Jul, [facility] [address] [id number] [address] [place] [address], [place] [address] Jul, [facility] [address] [id number] [address] [place] [address], [place] [address] Jul, [facility] [address] [id number] [address] [place] [address], [place] [address] Jul, [facility] [address] [id number] [address] [place] [address], [place] [address] Jul, [facility] [address] [id number] [address] [place] [address], [place] [address] May, [facility] [address] [id number] [address] [place] [address], [place] [address] May, [facility] [address] [id number] [address] [place] [address], [place] [address] May, [facility] [address] [id number] [address] [place] [address], [place] [address] May, [facility] [address] [id number] [address] [place] [address], [place] [address] 18 Apr, 2013 [facility] [address] [id number] [address] [place] [address] Mar, [facility] [address] [id number] [address] [place] [address], [place] [address] Mar, [facility] [address] [id number] [address] [place] [address] Mar, [facility] [address] [id number] [address] [place] [address] Mar, [facility] [address] [id number] [address] [place] [address] Mar, [facility] [address] [id number] [address] [place] [address], [place] [address] Mar, [facility] [address] [id number] [address] [place] [address] Mar, [facility] [address] [id number] [address] [place] [address] Mar, [facility] [address] [id number] [address] [place] [address] Mar, [facility] [address] [id number] [address] [place] [address] Mar, [facility] [address] [id number] [address] [place] [address] Mar, [facility] [address] [id number] [address] [place] [address] 04 Mar, 2013 [facility] [address] [id number] [address] [place] [address] 15 Feb, 2013 [facility] [address] [id number] [address] [place] [id number] 15 Feb, 2013 [facility] [address] [id number] [address] [place] [address] 11 Feb, 2013 [facility] [address] [id number] [address] [place] [address] 11 Feb, 2013 [facility] [address] [id number] [address] [place] [address], [place] [address] Feb, [facility] [address] [id number] [address] [place] [address], [place] [address] Jan, [facility] [address] [id number] [address] [place] [address], [place] [address] Dec, [facility] [address] [id number] [address] [place] [address], [place] [address] Dec, [facility] [address] [id number] [address] [place] [address], [place] [address] Dec, [facility] [address] [id number] [address] [place] [address], [place] [address] Nov, [facility] [address] [id number] [address] [place] [address], [place] [address] Nov, [facility] [address] [id number] [address] [place] [address], [place] [address] Nov, [facility] [address] [id number] [address] [place] [address], [place] [address] Oct, [facility] [address] [id number] [address] [place] [address], [place] [address] Oct, [facility] [address] [id number] [address] [place] [address], [place] [address] Oct, [facility] [address] [id number] [address] [place] [address], [place] [address] September, [facility] [address] [id number] [address] [place] [address], [place] [address] September, [facility] [address] [id number] [address] [place] [address], [place] [address] September, [facility] [address] [id number] [address] [place] [address], [place] [address] September, [facility] [address] [id number] [address] [place] [address], [place] [address] September, [facility] [address] [id number] [address] [place] [address], [place] [address] Aug, [facility] [address] [id number] [address] [place] [address], [place] [address] Aug, [facility] [address] [id number] [address] [place] [address], [place] [address] Aug, [facility] [address] [id number] [address] [place] [address], [place] [address] Jul, [facility] [address] [id number] [address] [place] [address], [place] [address] Jul, [facility] [address] [id number] [address] [place] [address], [place] [address] Jul, [facility] [address] [id number] [address] [place] [address], [place] [address] Jul, [facility] [address] [id number] [address] [place] [address], [place] [address] Jul, [facility] [address] [id number] [address] [place] [address], [place] [address] Jul, [facility] [address] [id number] [address] [place] [address], [place] [address] Jul, [facility] [address] [id number] [address] [place] [address], [place] [address] May, [facility] [address] [id number] [address] [place] [address], [place] [address] May, [facility] [address] [id number] [address] [place] [address], [place] [address] May, [facility] [address] [id number] [address] [place] [address], [place] [address] Apr, [facility] [address] [id number] [address] [place] [address], [place] [address] Apr, [facility] [address] [id number] [address] [place] [address], [place] [address] Apr, [facility] [address] [id number] [address] [place] [address], [place] [address] Apr, [facility] [address] [id number] [address] [place] [address], [place] [address] Apr, [facility] [address] [id number] [address] [place] [address], [place] [address] Mar, [facility] [address] [id number] [address] [place] [address], [place] [address] Mar, [facility] [address] [id number] [address] [place] [address], [place] [address] Mar, [facility] [address] [id number] [address] [place] [address], [place] [address] Mar, [facility] [address] [id number] [address] [place] [address], [place] [address] Feb, [facility] [address] [id number] [address] [place] [address], [place] [address] Feb, [facility] [address] [id number] [address] [place] [address], [place] [address] Feb, [facility] [address] [id number] [address] [place] [address], [place] [address] Feb, [facility] [address] [id number] [address] [place] [address], [place] [address] Feb, [facility] [address] [id number] [address] [place] [address], [place] [address] Jan, [facility] [address] [id number] [address] [place] [address], [place] [address] Dec, [facility] [address] [id number] [address] [place] [address], [place] [address] Dec, [facility] [address] [id number] [address] [place] [address], [place] [address] Dec, [facility] [address] [id number] [address] [place] [address], [place] [address] Nov, [facility] [address] [id number] [address] [place] [address], [place] [address] Nov, [facility] [address] [id number] [address] [place] [address], [place] [address] Nov, [facility] [address] [id number] [address] [place] [address], [place] [address] Oct, [facility] [address] [id number] [address] [place] [address], [place] [address] Oct, [facility] [address] [id number] [address] [place] [address], [place] [address] Oct, [facility] [address] [id number] [address] [place] [address], [place] [address] Oct, [facility] [address] [id number] [address] [place] [address], [place] [address] September, [facility] [address] [id number] [address] [place] [address], [place] [address] September, [facility] [address] [id number] [address] [place] [address], [place] [address] 30 Aug, 2011 [facility] [address] [id number] [address] [place] [address], [place] [address] Aug, [facility] [address] [id number] [address] [place] [address], [place] [address] Aug, [facility] [address] [id number] [address] [place] [address], [place] [address] Aug, [facility] [address] [id number] [address] [place] [address], [place] [address] 06 Aug, 2011 [facility] [address] [id number] [address] [place] [address], [place] [address] 05 Aug, 2011 [facility] [address] [id number] [address] [place] [id number] 05 Aug, 2011 [facility] [address] [id number] [address] [place] [address], [place] [address] Jul, [facility] [address] [id number] [address] [place] [address], [place] [address] Jul, [facility] [address] [id number] [address] [place] [address], [place] [address] Jul, [facility] [address] [id number] [address] [place] [address], [place] [address] May, [facility] [address] [id number] [address] [place] [address], [place] [address] May, [facility] [address] [id number] [address] [place] [address], [place] [address] May, [facility] [address] [id number] [address] [place] [id number] Apr, [facility] [address] [id number] [address] [place] [address], [place] [address] Apr, [facility] [address] [id number] [address] [place] [address], [place] [address] Mar, [facility] [address] [id number] [address] [place] [address], [place] [address] Mar, [facility] [address] [id number] [address] [place] [address], [place] [address] Mar, [facility] [address] [id number] [address] [place] [id number] Mar, [facility] [address] [id number] [address] [place] [address], [place] [address] Mar, [facility] [address] [id number] [address] [place] [address], [place] [address] Mar, [facility] [address] [id number] [address] [place] [address], [place] [address] Feb, [facility] [address] [facility] [id number] [address] [address] 14 Feb, 2011 [facility] [address] [facility] [id number] [address] [place] [address] Feb, IMMUNIZATIONS No Known Immunizations SOCIAL HISTORY Never Assessed [place]ASON [place]IT [place] [place] [...]
--- OUTSIDE RECORDS SUMMARY | 2020-01-03 07:56 | XMS REPORT ---
Author Author Tra Landeros Doctor Organization [facility] Address Unknown Phone Unavailable Care Team Providers Care Retail Manager Name Role Phone Migration, Doctor Unavailable Unavailable PROBLEMS Type Condition ICD9-CM Code [id number] Code Onset Dates Condition S tatus SNOMED Code Problem Insulin long-term use Z79.4 Active 390449489 Problem Hypertension I10 Active 5012953 3 Problem Diabetes E11.9 Active 04465604 Problem Hypoxia R09.02 Active 403532636 Problem Anxiety F41.9 Active 53054990 Problem Port catheter in place Z95.828 Active 628909017 Problem Pressure ulcer of other site, stage 3 L89.893 Active 747136875 Problem COPD (chronic obstructive pulmonary disease) J44.9 Active 26115762 Problem Type 2 diabetes mellitus wit h diabetic peripheral angiopathy without gangrene E11.51 Active 160616331 Problem Back pain M54.9 Active 706159854 Problem PAD (peripheral artery disease) I73.9 Active 131156121 Problem Lumbar radiculopathy, chronic M54.16 Active 836825194 Problem Recurrent major depressive disorder, in full remission F33.42 Active 967636878 Problem USP current use of insulin Z79.4 Active 382573328 ALLERGIES No Information ENCOUNTERS Encounter Location Date Diagnosis [place] [id number] [place] [phone] Aug, Back pain M54.9 [facility] [address] [facility] [id number] [address] [place] [phone] Aug, Anxiety F41.9 [place] [address] [address] [place] [id number] [address] [place] [phone] Aug, [place] [address] [place] [id number] [address] [place] [id number] Aug, Pressure ulcer of other site , stage 3 L89.893 and COPD (chronic obstructive pulmonary disease) J44.9 [place] [address] [id number] [address] [place] [id number] 03 Aug, 2018 History of smoking Z87.891 [facility] [address] [id number] [address] [place] [phone] Jul, Type 2 diabetes mellitus wit h diabetic peripheral angiopathy without gangrene E11.51 [facility] [address] [id number] [address] [place] [phone] Jul, Back pain M54.9 [facility] [address] [id number] [address] [place] [id number] Jul, Anxiety F41.9 [facility] [address] [id number] [address] [place] [id number] Jul, [facility] [address] [id number] [address] [place] [id number] Jul, Back pain M54.9 [facility] [address] [id number] [address] [place] [phone] Jul, Back pain M54.9 [facility] [address] [id number] [address] [place] [phone] Jul, Lumbar radiculopathy, chroni c M54.16 ; Hypertension I10 and Type 2 diabetes mellitus with diabetic peripheral angiopathy without gangrene E11.51 [facility] [address] [id number] [address] [place] [phone] 25 Jul, [address] [facility] [address] [id number] [address] [place] [phone] Jul, Back pain M54.[address] [facility] [address] [id number] [address] [place] [phone] Jul, [facility] [address] [facility] [id number] [address] [place] [phone] May, Back pain M54.[address] [facility] [address] [id number] [address] [place] [phone] May, [facility] [address] [id number] [address] [place] [phone] Apr, Radiculopathy of lumbar rhiannon on M54.16 ; Back pain M54.[address] [facility] [address] [id number] [address] [place] [phone] Apr, Diabetes E11.9 ; Muscle spas m M62.838 and Lumbar radiculopathy, chronic M54.16 [facility] [address] [id number] [address] [place] [phone] Apr, [facility] [address] [id number] [address] [place] [phone] Apr, [facility] [address] [id number] [address] [place] [phone] Mar, Back pain M54.[address] [facility] [address] [id number] [address] [place] [phone] Mar, [facility] [address] [id number] [address] [place] [phone] Mar, [facility] [address] [id number] [address] [place] [phone] Mar, [facility] [address] [id number] [address] [place] [phone] Mar, Encounter for immunization Z 23 [facility] [address] [id number] [address] [place] [phone] Feb, Back pain M54.[address] [facility] [address] [id number] [address] [place] [phone] 04 Feb, 2018 Back pain M54.[address] [facility] [address] [id number] [address] [place] [phone] Jan, Back pain M54.[address] [facility] [address] [id number] [address] [place] [phone] Jan, [facility] [address] [id number] [address] [place] [phone] Dec, [facility] [address] [id number] [address] [place] [phone] Dec, Back pain M54.[address] [facility] [address] [id number] [address] [place] [phone] Dec, Diabetes E11.9 ; Type 2 diab etes mellitus with diabetic peripheral angiopathy without gangrene E11.51 ; Lumbar radiculopathy, chronic M54.16 ; COPD (chronic obstructive pulmonary disease) J44.9 and Anxiety F41.9 [place] [id number] [id number] [address] [place] [phone] Dec, Back pain M54.[address] [facility] [address] [id number] [address] [place] [phone] Nov, Back pain M54.[address] [facility] [address] [id number] [address] [place] [phone] Oct, [facility] [address] [id number] [address] [place] [phone] Oct, Back pain M54.[address] [facility] [address] [id number] [address] [place] [phone] September, Anxiety F41.9 and Back pain M54.9 [facility] [address] [id number] [address] [place] [phone] September, Diabetes E11.9 ; Hypertensio n I10 ; COPD (chronic obstructive pulmonary disease) J44.9 and Lumbar radiculopathy, chronic M54.16 [facility] [address] [id number] [address] [place] [phone] September, Anxiety F41.9 [facility] [address] [id number] [address] [place] [phone] Aug, [facility] [address] [id number] [address] [place] [phone] Aug, [facility] [address] [facility] [id number] [address] [place] [phone] Aug, Anxiety F41.9 and Back pain M54.9 [facility] [address] [facility] [id number] [address] [place] [phone] Aug, Medicare annual wellness vis it, initial Z00.00 ; COPD (chronic obstructive pulmonary disease) J44.9 ; PAD (peripheral artery disease) I73.9 ; Insulin long-term use Z79.4 ; Hypertension I10 ; Anxiety F41.9 ; Recurrent major depressive disorder, in full remission F33.42 ; Pressure ulcer of other site, stage 3 L89.893 ; Type 2 diabetes mellitus with diabetic peripheral angiopathy without gangrene E11.51 and USP current use of insulin Z79.4 [place] [id number] [id number] [address] [place] [phone] Jul, Back pain M54.9 [facility] [address] [facility] [id number] [address] [place] [phone] Jul, [facility] [address] [id number] [address] [place] [phone] Jul, Anxiety F41.9 and Back pain M54.9 [facility] [address] [id number] [address] [place] [phone] Jul, Diabetes E11.9 [facility] [address] [facility] [id number] [address] [place] [phone] May, [facility] [address] [facility] [id number] [address] [place] [phone] May, Diabetes E11.9 ; Anxiety F41 .9 ; Back pain M54.9 and COPD (chronic obstructive pulmonary disease) J44.9 [facility] [address] [id number] [address] [place] [phone] May, Back pain M54.9 [facility] [address] [id number] [address] [place] [phone] May, [facility] [address] [id number] [address] [place] [phone] Apr, Back pain M54.9 [facility] [address] [id number] [address] [place] [phone] Mar, Back pain M54.9 [facility] [address] [id number] [address] [place] [phone] Mar, [facility] [address] [id number] [address] [place] [phone] Mar, [facility] [address] [id number] [address] [place] [phone] 14 Mar, 2017 Radiculopathy of lumbar rhiannon on M54.16 [facility] [address] [facility] [id number] [address] [place] [phone] 13 Mar, 2017 [facility] [address] [facility] [id number] [address] [place] [phone] 07 Mar, 2017 Encounter for immunization Z 23 and Lumbar radiculopathy, chronic M54.16 [facility] [address] [id number] [address] [place] [phone] Mar, Back pain M54.9 and Anxiety F41.9 [facility] [address] [facility] [id number] [address] [place] [phone] 10 Feb, 2017 Acute bilateral low back boy n with left-sided sciatica M54.42 and Acute bilateral low back pain with right-sided sciatica M54.41 [facility] [address] [facility] [id number] [address] [place] [phone] Feb, [facility] [address] [id number] [address] [place] [phone] Feb, Back pain M54.9 [facility] [address] [id number] [address] [place] [phone] 05 Jan, 2017 Back pain M54.[address] [facility] [address] [facility] [id number] [address] [place] [id number] 05 Jan, [address] [facility] [address] [id number] [address] [place] [phone] Dec, Diabetes E11.9 ; Back pain M 54.9 ; Anxiety F41.9 and Insulin long- term use Z79.4 [facility] [address] [facility] [id number] [address] [place] [phone] Dec, Anxiety F41.9 [facility] [address] [facility] [id number] [address] [place] [phone] Dec, Back pain M54.9 [facility] [address] [facility] [id number] [address] [place] [phone] Nov, Back pain M54.9 [facility] [address] [facility] [id number] [address] [place] [phone] Oct, Back pain M54.[address] [facility] [address] [facility] [id number] [address] [place] [phone] September, Back pain M54.9 [facility] [address] [id number] [address] [place] [id number] September, Back pain M54.[address] [facility] [address] [facility] [id number] [address] [place] [phone] Aug, Diabetes E11.9 ; Anxiety F41 .9 ; Back pain M54.9 and PAD (peripheral artery disease) I73.9 [facility] [address] [facility] [id number] [address] [place] [phone] Aug, Anxiety F41.9 [facility] [address] [id number] [address] [place] [phone] Aug, Back pain M54.9 [facility] [address] [id number] [address] [place] [phone] Jul, Back pain M54.9 [facility] [address] [id number] [address] [place] [phone] Jul, Back pain M54.9 [facility] [address] [id number] [address] [place] [phone] Jul, Back pain M54.9 [facility] [address] [id number] [address] [place] [phone] 16 Jul, [address] [facility] [address] [id number] [address] [place] [phone] Jul, [facility] [address] [id number] [address] [place] [phone] May, Back pain M54.9 [facility] [address] [id number] [address] [place] [phone] May, Diabetes E11.9 ; Anxiety F41 .9 ; Port catheter in place Z95.828 ; Encounter for immunization Z23 and Insulin long-term use Z79.4 [facility] [address] [id number] [address] [place] [phone] Apr, Back pain M54.9 [facility] [address] [id number] [address] [place] [phone] Apr, Back pain M54.9 [facility] [address] [id number] [address] [place] [phone] Apr, [facility] [address] [id number] [address] [place] [phone] Apr, Back pain M54.9 [facility] [address] [id number] [address] [place] [phone] Mar, COPD (chronic obstructive pu lmonary disease) J44.9 [facility] [address] [id number] [address] [place] [phone] Feb, [facility] [address] [id number] [address] [place] [phone] [address] Jan, [address] [facility] [address] [id number] [address] [place] [phone] Jan, [facility] [address] [id number] [address] [place] [phone] Jan, [facility] [address] [id number] [address] [place] [phone] Jan, [facility] [address] [id number] [address] [place] [phone] Dec, Diabetes E11.9 ; Hypoxia R09 .02 and Back pain M54.9 [facility] [address] [id number] [address] [place] [phone] Dec, [facility] [address] [id number] [address] [place] [phone] Nov, [facility] [address] [id number] [address] [place] [phone] Oct, Anxiety F41.9 [facility] [address] [id number] [address] [place] [phone] Oct, Back pain M54.9 [facility] [address] [id number] [address] [place] [phone] September, Back pain M54.9 [facility] [address] [id number] [address] [place] [phone] September, Diabetes E11.9 [facility] [address] [id number] [address] [place] [phone] September, [facility] [address] [id number] [address] [place] [phone] September, Diabetes E11.9 ; Insulin sarai g-term use Z79.4 and Back pain M54.9 [facility] [address] [id number] [address] [place] [phone] Aug, Back pain M54.9 [facility] [address] [id number] [address] [place] [phone] Aug, Back pain M54.9 ; Anxiety F4 1.9 and Arthropathy, unspecified M12.9 [facility] [address] [id number] [address] [place] [phone] Jul, Back pain M54.9 [facility] [address] [id number] [address] [place] [phone] Jul, Anxiety F41.9 [facility] [address] [facility] [id number] [address] [place] [phone] Jul, Back pain M54.9 [facility] [address] [id number] [address] [place] [phone] Jul, [facility] [address] [facility] [id number] [address] [place] [phone] Jul, [facility] [address] [facility] [id number] [address] [place] [phone] May, Back pain M54.9 ; Diabetes E 11.9 ; Insulin long-term use Z79.4 ; COPD (chronic obstructive pulmonary disease) J44.[address] [facility] [address] [id number] [address] [place] [phone] May, Chronic pain G89.29 [facility] [address] [facility] [id number] [address] [place] [phone] Apr, [facility] [address] [facility] [id number] [address] [place] [phone] Apr, [facility] [address] [facility] [id number] [address] [place] [phone] Mar, [facility] [address] [id number] [address] [place] [phone] Mar, Encounter for immunization Z [address] [facility] [address] [id number] [address] [place] [id number] Feb, [facility] [address] [id number] [address] [place] [phone] Feb, [facility] [address] [id number] [address] [place] [phone] Jan, [facility] [address] [id number] [address] [place] [phone] Jan, [facility] [address] [id number] [address] [place] [phone] Dec, [facility] [address] [id number] [address] [place] [id number] Dec, [facility] [address] [id number] [address] [place] [phone] Dec, Unspecified arthropathy, sit e unspecified 716.90 and Diabetes mellitus type 2, uncontrolled 250.02 [facility] [address] [id number] [address] [place] [phone] Dec, [facility] [address] [id number] [address] [place] [phone] Nov, [facility] [address] [id number] [address] [place] [phone] Oct, [facility] [address] [id number] [address] [place] [phone] September, [facility] [address] [id number] [address] [place] [phone] September, [facility] [address] [id number] [address] [place] [id number] September, [facility] [address] [id number] [facility] [address] 11 Sep, 2014 [facility] [address] [id number] [address] [place] [address], [place] [address] 14 Aug, 2014 [facility] [address] [id number] [address] [place] [address], [place] [id number] 13 Aug, 2014 [facility] [address] [id number] [address] [place] [address], [place] [address] 18 Jul, 2014 [facility] [address] [id number] [address] [place] [address], [place] [address] 18 Jul, 2014 [facility] [address] [id number] [address] [place] [address], [place] [address] 16 Jul, 2014 [facility] [address] [id number] [address] [place] [address], [place] [address] 16 Jul, 2014 [facility] [address] [id number] [address] [place] [address], [place] [address] 16 Jul, 2014 [facility] [address] [id number] [address] [place] [address], [place] [address] 16 Jul, 2014 [facility] [address] [id number] [address] [place] [address], [place] [address] 16 Jul, 2014 [facility] [address] [id number] [address] [place] [address], [place] [address] 16 Jul, 2014 [facility] [address] [id number] [address] [place] [address], [place] [address] 16 Jul, 2014 [facility] [address] [id number] [address] [place] [address], [place] [address] 13 Jul, 2014 [facility] [address] [id number] [address] [place] [address], [place] [address] 13 Jul, 2014 [facility] [address] [id number] [address] [place] [address], [place] [address] 09 Jul, 2014 [facility] [address] [id number] [address] [place] [address], [place] [address] 09 Jul, 2014 [facility] [address] [id number] [address] [place] [address], [place] [address] 17 Jul, 2014 [facility] [address] [id number] [address] [place] [address], [place] [address] 17 Jul, 2014 [facility] [address] [id number] [address] [place] [address], [place] [address] 16 Jul, 2014 [facility] [address] [id number] [address] [place] [address], [place] [address] 16 Jul, 2014 [facility] [address] [id number] [address] [place] [address], [place] [address] 16 Jul, 2014 [facility] [address] [id number] [address] [place] [address], [place] [id number] 16 Jul, 2014 [facility] [address] [id number] [address] [place] [address], [place] [address] 16 Jul, 2014 [facility] [address] [id number] [address] [place] [address], [place] [address] 16 Jul, 2014 [facility] [address] [id number] [address] [place] [address], [place] [address] 16 Jul, 2014 [facility] [address] [id number] [address] [place] [id number] 16 Jul, 2014 [facility] [address] [id number] [address] [place] [id number] 16 Jul, 2014 [facility] [address] [id number] [address] [place] [address], [place] [address] 16 Jul, 2014 [facility] [address] [id number] [address] [place] [address], [place] [address] 16 Jul, 2014 [facility] [address] [id number] [address] [place] [address] 16 Jul, 2014 [facility] [address] [id number] [address] [place] [address] Jul, [facility] [address] [id number] [address] [place] [address], [place] [address] Jul, [facility] [address] [id number] [address] [place] [address], [place] [address] May, [facility] [address] [id number] [address] [place] [address], [place] [address] May, [facility] [address] [id number] [address] [place] [address], [place] [address] May, [facility] [address] [id number] [address] [place] [address], [place] [address] May, [facility] [address] [id number] [address] [place] [address], [place] [address] May, [facility] [address] [id number] [address] [place] [address], [place] [address] May, [facility] [address] [id number] [address] [place] [address], [place] [address] May, [facility] [address] [id number] [address] [place] [address], [place] [address] May, [facility] [address] [id number] [address] [place] [address], [place] [address] May, [facility] [address] [id number] [address] [place] [address], [place] [address] May, [facility] [address] [id number] [address] [place] [address], [place] [address] Apr, [facility] [address] [id number] [address] [place] [address], [place] [address] Apr, [facility] [address] [id number] [address] [place] [address], [place] [address] Apr, [facility] [address] [id number] [address] [place] [address], [place] [address] Apr, [facility] [address] [id number] [address] [place] [address], [place] [address] Apr, [facility] [address] [id number] [address] [place] [address], [place] [address] Apr, [facility] [address] [id number] [address] [place] [address], [place] [address] Mar, [facility] [address] [id number] [address] [place] [address], [place] [address] Mar, [facility] [address] [id number] [address] [place] [address], [place] [address] Mar, [facility] [address] [id number] [address] [place] [address], [place] [address] Mar, [facility] [address] [id number] [address] [place] [address], [place] [address] Mar, [facility] [address] [id number] [address] [place] [address], [place] [address] Mar, [facility] [address] [id number] [address] [place] [address], [place] [address] Mar, [facility] [address] [id number] [address] [place] [address], [place] [address] Mar, [facility] [address] [id number] [address] [place] [address], [place] [address] Mar, [facility] [address] [id number] [address] [place] [address], [place] [address] Mar, [facility] [address] [id number] [address] [place] [address], [place] [address] Mar, [facility] [address] [id number] [address] [place] [address], [place] [address] Feb, [facility] [address] [id number] [address] [place] [address], [place] [address] Feb, [facility] [address] [id number] [address] [place] [address], [place] [address] Feb, [facility] [address] [id number] [address] [place] [address], [place] [address] 15 Feb, 2014 [facility] [address] [id number] [address] [place] [address], [place] [address] Feb, [facility] [address] [id number] [address] [place] [address], [place] [address] Feb, [facility] [address] [id number] [address] [place] [address], [place] [address] Feb, [facility] [address] [id number] [address] [place] [address], [place] [address] Feb, [facility] [address] [id number] [address] [place] [address], [place] [address] Feb, [facility] [address] [id number] [address] [place] [address], [place] [address] Feb, [facility] [address] [id number] [address] [place] [address], [place] [address] Jan, [facility] [address] [id number] [address] [place] [address], [place] [address] 22 Jan, 2014 [facility] [address] [id number] [address] [place] [address], [place] [address] 16 Jan, 2014 [facility] [address] [id number] [address] [place] [address], [place] [address] 16 Jan, 2014 [facility] [address] [id number] [address] [place] [address], [place] [address] 12 Jan, 2014 [facility] [address] [id number] [address] [place] [address], [place] [address] Jan, [facility] [address] [id number] [address] [place] [address], [place] [address] Jan, [facility] [address] [id number] [address] [place] [address], [place] [address] Dec, [facility] [address] [id number] [address] [place] [address] [place] [address] Dec, [facility] [address] [id number] [address] [place] [address], [place] [address] Dec, [facility] [address] [id number] [address] [place] [address], [place] [address] Dec, [facility] [address] [id number] [address] [place] [address], [place] [address] Dec, [facility] [address] [id number] [address] [place] [address], [place] [address] Dec, [facility] [address] [id number] [address] [place] [address], [place] [address] Dec, [facility] [address] [id number] [address] [place] [address], [place] [address] Dec, [facility] [address] [id number] [address] [place] [address], [place] [address] Oct, [facility] [address] [id number] [address] [place] [address], [place] [address] Oct, [facility] [address] [id number] [address] [place] [address], [place] [address] September, [facility] [address] [id number] [address] [place] [address], [place] [address] September, [facility] [address] [id number] [address] [place] [address], [place] [address] September, [facility] [address] [id number] [address] [place] [address], [place] [address] September, [facility] [address] [id number] [address] [place] [address], [place] [address] September, [facility] [address] [id number] [address] [place] [address], [place] [address] September, [facility] [address] [id number] [address] [place] [address], [place] [address] September, [facility] [address] [id number] [address] [place] [address], [place] [address] 15 Aug, 2013 [facility] [address] [id number] [address] [place] [address], [place] [address] Aug, [facility] [address] [id number] [address] [place] [address], [place] [address] 24 Jul, 2013 [facility] [address] [id number] [address] [place] [address], [place] [address] 24 Jul, 2013 [facility] [address] [id number] [address] [place] [address], [place] [address] Jul, [facility] [address] [id number] [address] [place] [address], [place] [address] Jul, [facility] [address] [id number] [address] [place] [address], [place] [address] Jul, [facility] [address] [id number] [address] [place] [address], [place] [address] Jul, [facility] [address] [id number] [address] [place] [address], [place] [address] Jul, [facility] [address] [id number] [address] [place] [address], [place] [address] Jul, [facility] [address] [id number] [address] [place] [address], [place] [address] May, [facility] [address] [id number] [address] [place] [address], [place] [address] May, [facility] [address] [id number] [address] [place] [address], [place] [address] May, [facility] [address] [id number] [address] [place] [address], [place] [address] May, [facility] [address] [id number] [address] [place] [address], [place] [address] 18 Apr, 2013 [facility] [address] [id number] [address] [place] [address] Mar, [facility] [address] [id number] [address] [place] [address], [place] [address] Mar, [facility] [address] [id number] [address] [place] [address] Mar, [facility] [address] [id number] [address] [place] [address] Mar, [facility] [address] [id number] [address] [place] [address] Mar, [facility] [address] [id number] [address] [place] [address], [place] [address] Mar, [facility] [address] [id number] [address] [place] [address] Mar, [facility] [address] [id number] [address] [place] [address] Mar, [facility] [address] [id number] [address] [place] [address] Mar, [facility] [address] [id number] [address] [place] [address] Mar, [facility] [address] [id number] [address] [place] [address] Mar, [facility] [address] [id number] [address] [place] [address] 04 Mar, 2013 [facility] [address] [id number] [address] [place] [address] 15 Feb, 2013 [facility] [address] [id number] [address] [place] [address] 15 Feb, 2013 [facility] [address] [id number] [address] [place] [address] 11 Feb, 2013 [facility] [address] [id number] [address] [place] [address] 11 Feb, 2013 [facility] [address] [id number] [address] [place] [address], [place] [address] Feb, [facility] [address] [id number] [address] [place] [address], [place] [address] Jan, [facility] [address] [id number] [address] [place] [address], [place] [address] Dec, [facility] [address] [id number] [address] [place] [address], [place] [address] Dec, [facility] [address] [id number] [address] [place] [address], [place] [address] Dec, [facility] [address] [id number] [address] [place] [address], [place] [address] Nov, [facility] [address] [id number] [address] [place] [address], [place] [address] Nov, [facility] [address] [id number] [address] [place] [address], [place] [address] Nov, [facility] [address] [id number] [address] [place] [address], [place] [address] Oct, [facility] [address] [id number] [address] [place] [address], [place] [address] Oct, [facility] [address] [id number] [address] [place] [address], [place] [address] Oct, [facility] [address] [id number] [address] [place] [address], [place] [address] September, [facility] [address] [id number] [address] [place] [address], [place] [address] September, [facility] [address] [id number] [address] [place] [address], [place] [address] September, [facility] [address] [id number] [address] [place] [address], [place] [address] September, [facility] [address] [id number] [address] [place] [address], [place] [address] September, [facility] [address] [id number] [address] [place] [address], [place] [address] Aug, [facility] [address] [id number] [address] [place] [address], [place] [address] Aug, [facility] [address] [id number] [address] [place] [address], [place] [address] Aug, [facility] [address] [id number] [address] [place] [address], [place] [address] Jul, [facility] [address] [id number] [address] [place] [address], [place] [address] Jul, [facility] [address] [id number] [address] [place] [address], [place] [address] Jul, [facility] [address] [id number] [address] [place] [address], [place] [address] Jul, [facility] [address] [id number] [address] [place] [address], [place] [address] Jul, [facility] [address] [id number] [address] [place] [address], [place] [address] Jul, [facility] [address] [id number] [address] [place] [address], [place] [address] Jul, [facility] [address] [id number] [address] [place] [address], [place] [address] May, [facility] [address] [id number] [address] [place] [address], [place] [address] May, [facility] [address] [id number] [address] [place] [address], [place] [address] May, [facility] [address] [id number] [address] [place] [address], [place] [address] Apr, [facility] [address] [id number] [address] [place] [address], [place] [address] Apr, [facility] [address] [id number] [address] [place] [address], [place] [address] Apr, [facility] [address] [id number] [address] [place] [address], [place] [address] Apr, [facility] [address] [id number] [address] [place] [address], [place] [address] Apr, [facility] [address] [id number] [address] [place] [address], [place] [address] Mar, [facility] [address] [id number] [address] [place] [address], [place] [address] Mar, [facility] [address] [id number] [address] [place] [address], [place] [address] Mar, [facility] [address] [id number] [address] [place] [address], [place] [address] Mar, [facility] [address] [id number] [address] [place] [address], [place] [address] Feb, [facility] [address] [id number] [address] [place] [address], [place] [address] Feb, [facility] [address] [id number] [address] [place] [address], [place] [address] Feb, [facility] [address] [id number] [address] [place] [address], [place] [address] Feb, [facility] [address] [id number] [address] [place] [address], [place] [address] Feb, [facility] [address] [id number] [address] [place] [address], [place] [address] Jan, [facility] [address] [id number] [address] [place] [address], [place] [address] Dec, [facility] [address] [id number] [address] [place] [address], [place] [address] Dec, [facility] [address] [id number] [address] [place] [address], [place] [address] Dec, [facility] [address] [id number] [address] [place] [address], [place] [address] Nov, [facility] [address] [id number] [address] [place] [address], [place] [address] Nov, [facility] [address] [id number] [address] [place] [address], [place] [address] Nov, [facility] [address] [id number] [address] [place] [address], [place] [address] Oct, [facility] [address] [id number] [address] [place] [address], [place] [address] Oct, [facility] [address] [id number] [address] [place] [address], [place] [address] Oct, [facility] [address] [id number] [address] [place] [address], [place] [address] Oct, [facility] [address] [id number] [address] [place] [address], [place] [address] September, [facility] [address] [id number] [address] [place] [address], [place] [address] September, [facility] [address] [id number] [address] [place] [address], [place] [address] 30 Aug, 2011 [facility] [address] [id number] [address] [place] [address], [place] [address] Aug, [facility] [address] [id number] [address] [place] [address], [place] [address] Aug, [facility] [address] [id number] [address] [place] [address], [place] [address] Aug, [facility] [address] [id number] [address] [place] [address], [place] [address] 06 Aug, 2011 [facility] [address] [id number] [address] [place] [address], [place] [address] 05 Aug, 2011 [facility] [address] [id number] [address] [place] [id number] 05 Aug, 2011 [facility] [address] [id number] [address] [place] [address], [place] [address] Jul, [facility] [address] [id number] [address] [place] [address], [place] [address] Jul, [facility] [address] [id number] [address] [place] [address], [place] [address] Jul, [facility] [address] [id number] [address] [place] [address], [place] [address] May, [facility] [address] [id number] [address] [place] [address], [place] [address] May, [facility] [address] [id number] [address] [place] [address], [place] [address] May, [facility] [address] [id number] [address] [place] [id number] Apr, [facility] [address] [id number] [address] [place] [address], [place] [address] Apr, [facility] [address] [id number] [address] [place] [address], [place] [address] Mar, [facility] [address] [id number] [address] [place] [address], [place] [address] Mar, [facility] [address] [id number] [address] [place] [address], [place] [address] Mar, [facility] [address] [id number] [address] [place] [id number] Mar, [facility] [address] [id number] [address] [place] [address], [place] [address] Mar, [facility] [address] [id number] [address] [place] [address], [place] [address] Mar, [facility] [address] [id number] [address] [place] [address], [place] [address] Feb, [facility] [address] [facility] [id number] [address] [address] 14 Feb, 2011 [facility] [address] [facility] [id number] [address] [address] Feb, IMMUNIZATIONS No Known Immunizations SOCIAL HISTORY Never Assessed REASON FOR VISIT EMR-[facility] PLAN OF CARE VITAL SIGNS MEDICATIONS Unknown [...]
--- OUTSIDE RECORDS SUMMARY | 2020-01-03 07:56 | XMS REPORT ---
Author Author Tra Landeros Doctor Organization [facility] Address Unknown Phone Unavailable Care Team Providers Care Route Manager Name Role Phone Migration, Doctor Unavailable Unavailable PROBLEMS Type Condition ICD9-CM Code [id number] Code Onset Dates Condition S tatus SNOMED Code Problem Insulin long-term use Z79.4 Active 909610242 Problem Hypertension I10 Active 1706675 3 Problem Diabetes E11.9 Active 12448953 Problem Hypoxia R09.02 Active 334965710 Problem Anxiety F41.9 Active 30175460 Problem Port catheter in place Z95.828 Active 310924768 Problem Pressure ulcer of other site, stage 3 L89.893 Active 196873365 Problem COPD (chronic obstructive pulmonary disease) J44.9 Active 92892281 Problem Type 2 diabetes mellitus wit h diabetic peripheral angiopathy without gangrene E11.51 Active 121541530 Problem Back pain M54.9 Active 242178883 Problem PAD (peripheral artery disease) I73.9 Active 635894439 Problem Lumbar radiculopathy, chronic M54.16 Active 837272168 Problem Recurrent major depressive disorder, in full remission F33.42 Active 363814652 Problem custodial current use of insulin Z79.4 Active 219386172 ALLERGIES No Information ENCOUNTERS Encounter Location Date Diagnosis [place] [id number] [place] [address] Aug, Back pain M54.9 [facility] [address] [facility] [id number] [address] [place] [address] Aug, Anxiety F41.9 [place] [address] [address] [place] [id number] [address] [place] [address] Aug, [place] [address] [address] [place] [id number] [address] [place] [address] Aug, Pressure ulcer of other site , stage 3 L89.893 and COPD (chronic obstructive pulmonary disease) J44.9 [place] [address] [id number] [address] [place] [address] 03 Aug, 2018 History of smoking Z87.891 [facility] [address] [id number] [address] [place] [address] Jul, Type 2 diabetes mellitus wit h diabetic peripheral angiopathy without gangrene E11.51 [facility] [address] [id number] [address] [place] [id number] Jul, Back pain M54.9 [facility] [address] [id number] [address] [place] [address] Jul, Anxiety F41.9 [facility] [address] [id number] [address] [place] [id number] Jul, [facility] [address] [id number] [address] [place] [address] Jul, Back pain M54.9 [facility] [address] [id number] [address] [place] [address] Jul, Back pain M54.9 [facility] [address] [id number] [address] [place] [address] Jul, Lumbar radiculopathy, chroni c M54.16 ; Hypertension I10 and Type 2 diabetes mellitus with diabetic peripheral angiopathy without gangrene E11.51 [facility] [address] [id number] [address] [place] [address] 25 Jul, 2018 Back pain M54.9 [facility] [address] [id number] [address] [place] [address] Jul, Back pain M54.9 and Anxiety F41.9 [facility] [address] [id number] [address] [place] [address] Jul, [facility] [address] [facility] [id number] [address] [place] [address] May, Back pain M54.9 and Anxiety F41.9 [facility] [address] [id number] [address] [place] [address] May, [facility] [address] [id number] [address] [place] [address] Apr, Radiculopathy of lumbar rhiannon on M54.16 ; Back pain M54.9 and Anxiety F41.9 [facility] [address] [id number] [address] [place] [address] Apr, Diabetes E11.9 ; Muscle spas m M62.838 and Lumbar radiculopathy, chronic M54.16 [facility] [address] [id number] [address] [place] [address] Apr, [facility] [address] [id number] [address] [place] [address] Apr, [facility] [address] [id number] [address] [place] [address] Mar, Back pain M54.9 and Anxiety F41.9 [facility] [address] [id number] [address] [place] [address] Mar, [facility] [address] [id number] [address] [place] [address] Mar, [facility] [address] [id number] [address] [place] [address] Mar, [facility] [address] [id number] [address] [place] [address] Mar, Encounter for immunization Z 23 [facility] [address] [id number] [address] [place] [address] Feb, Back pain M54.9 and Anxiety F41.9 [facility] [address] [id number] [address] [place] [address] 04 Feb, 2018 Back pain M54.9 and Anxiety F41.9 [facility] [address] [id number] [address] [place] [address] Jan, Back pain M54.9 and Anxiety F41.9 [facility] [address] [id number] [address] [place] [address] Jan, [facility] [address] [id number] [address] [place] [address] Dec, [facility] [address] [id number] [address] [place] [address] Dec, Back pain M54.9 and Anxiety F41.9 [facility] [address] [id number] [address] [place] [address] Dec, Diabetes E11.9 ; Type 2 diab etes mellitus with diabetic peripheral angiopathy without gangrene E11.51 ; Lumbar radiculopathy, chronic M54.16 ; COPD (chronic obstructive pulmonary disease) J44.9 and Anxiety F41.9 [place] [id number] [id number] [address] [place] [address] Dec, Back pain M54.9 and Anxiety F41.9 [facility] [address] [id number] [address] [place] [address] Nov, Back pain M54.9 and Anxiety F41.9 [facility] [address] [id number] [address] [place] [address] Oct, [facility] [address] [id number] [address] [place] [address] Oct, Back pain M54.9 and Anxiety F41.9 [facility] [address] [id number] [address] [place] [address] September, Anxiety F41.9 and Back pain M54.9 [facility] [address] [id number] [address] [place] [address] September, Diabetes E11.9 ; Hypertensio n I10 ; COPD (chronic obstructive pulmonary disease) J44.9 and Lumbar radiculopathy, chronic M54.16 [facility] [address] [id number] [address] [place] [address] September, Anxiety F41.9 [facility] [address] [id number] [address] [place] [address] Aug, [facility] [address] [id number] [address] [place] [address] Aug, [facility] [address] [facility] [id number] [address] [place] [address] Aug, Anxiety F41.9 and Back pain M54.9 [facility] [address] [facility] [id number] [address] [place] [address] Aug, Medicare annual wellness vis it, initial [...] and custodial current use of insulin Z79.4 [place] [id number] [id number] [address] [place] [address] Jul, Back pain M54.9 [facility] [address] [facility] [id number] [address] [place] [address] Jul, [facility] [address] [id number] [address] [place] [address] Jul, Anxiety F41.9 and Back pain M54.9 [facility] [address] [id number] [address] [place] [address] Jul, Diabetes E11.9 [facility] [address] [facility] [id number] [address] [place] [address] May, [facility] [address] [facility] [id number] [address] [place] [address] May, Diabetes E11.9 ; Anxiety F41 .9 ; Back pain M54.9 and COPD (chronic obstructive pulmonary disease) J44.9 [facility] [address] [id number] [address] [place] [address] May, Back pain M54.9 [facility] [address] [id number] [address] [place] [address] May, [facility] [address] [id number] [address] [place] [address] Apr, Back pain M54.9 [facility] [address] [id number] [address] [place] [address] Mar, Back pain M54.9 [facility] [address] [id number] [address] [place] [address] Mar, [facility] [address] [id number] [address] [place] [address] Mar, [facility] [address] [id number] [address] [place] [address] 14 Mar, 2017 Radiculopathy of lumbar rhiannon on M54.16 [facility] [address] [facility] [id number] [address] [place] [id number] 13 Mar, 2017 [facility] [address] [facility] [id number] [address] [place] [id number] 07 Mar, 2017 Encounter for immunization Z 23 and Lumbar radiculopathy, chronic M54.16 [facility] [address] [id number] [address] [place] [address] Mar, Back pain M54.9 and Anxiety F41.9 [facility] [address] [facility] [id number] [address] [place] [address] 10 Feb, 2017 Acute bilateral low back boy n with left-sided sciatica M54.42 and Acute bilateral low back pain with right-sided sciatica M54.41 [facility] [address] [facility] [id number] [address] [place] [address] Feb, [facility] [address] [id number] [address] [place] [address] Feb, Back pain M54.9 [facility] [address] [id number] [address] [place] [id number] 05 Jan, 2017 Back pain M54.9 and Anxiety F41.9 [facility] [address] [facility] [id number] [address] [place] [address] 05 Jan, 2017 Diabetes E11.9 [facility] [address] [id number] [address] [place] [address] Dec, Diabetes E11.9 ; Back pain M 54.9 ; Anxiety F41.9 and Insulin long- term use Z79.4 [facility] [address] [facility] [id number] [address] [place] [address] Dec, Anxiety F41.9 [facility] [address] [facility] [id number] [address] [place] [address] Dec, Back pain M54.9 [facility] [address] [facility] [id number] [address] [place] [address] Nov, Back pain M54.9 [facility] [address] [facility] [id number] [address] [place] [address] Oct, Back pain M54.9 and Anxiety F41.9 [facility] [address] [facility] [id number] [address] [place] [address] September, Back pain M54.9 [facility] [address] [id number] [address] [place] [address] September, Back pain M54.9 and Anxiety F41.9 [facility] [address] [facility] [id number] [address] [place] [address] Aug, Diabetes E11.9 ; Anxiety F41 .9 ; Back pain M54.9 and PAD (peripheral artery disease) I73.9 [facility] [address] [facility] [id number] [address] [place] [address] Aug, Anxiety F41.9 [facility] [address] [id number] [address] [place] [address] Aug, Back pain M54.9 [facility] [address] [id number] [address] [place] [address] Jul, Back pain M54.9 [facility] [address] [id number] [address] [place] [address] Jul, Back pain M54.9 [facility] [address] [id number] [address] [place] [address] Jul, Back pain M54.9 [facility] [address] [id number] [address] [place] [id number] 16 Jul, 2016 Dorsalgia M54.9 [facility] [address] [id number] [address] [place] [address] Jul, [facility] [address] [id number] [address] [place] [address] May, Back pain M54.9 [facility] [address] [id number] [address] [place] [address] May, Diabetes E11.9 ; Anxiety F41 .9 ; Port catheter in place Z95.828 ; Encounter for immunization Z23 and Insulin long-term use Z79.4 [facility] [address] [id number] [address] [place] [address] Apr, Back pain M54.9 [facility] [address] [id number] [address] [place] [address] Apr, Back pain M54.9 [facility] [address] [id number] [address] [place] [address] Apr, [facility] [address] [id number] [address] [place] [address] Apr, Back pain M54.9 [facility] [address] [id number] [address] [place] [address] Mar, COPD (chronic obstructive pu lmonary disease) J44.9 [facility] [address] [id number] [address] [place] [address] Feb, [facility] [address] [id number] [address] [place] [address] 30 Jan, 2016 [facility] [address] [id number] [address] [place] [address] Jan, [facility] [address] [id number] [address] [place] [address] Jan, [facility] [address] [id number] [address] [place] [address] Jan, [facility] [address] [id number] [address] [place] [address] Dec, Diabetes E11.9 ; Hypoxia R09 .02 and Back pain M54.9 [facility] [address] [id number] [address] [place] [address] Dec, [facility] [address] [id number] [address] [place] [address] Nov, [facility] [address] [id number] [address] [place] [address] Oct, Anxiety F41.9 [facility] [address] [id number] [address] [place] [address] Oct, Back pain M54.9 [facility] [address] [id number] [address] [place] [address] September, Back pain M54.9 [facility] [address] [id number] [address] [place] [address] September, Diabetes E11.9 [facility] [address] [id number] [address] [place] [address] September, [facility] [address] [id number] [address] [place] [address] September, Diabetes E11.9 ; Insulin sarai g-term use Z79.4 and Back pain M54.9 [facility] [address] [id number] [address] [place] [address] Aug, Back pain M54.9 [facility] [address] [id number] [address] [place] [address] Aug, Back pain M54.9 ; Anxiety F4 1.9 and Arthropathy, unspecified M12.9 [facility] [address] [id number] [address] [place] [address] Jul, Back pain M54.9 [facility] [address] [id number] [address] [place] [address] Jul, Anxiety F41.9 [facility] [address] [facility] [id number] [address] [place] [address] Jul, Back pain M54.9 [facility] [address] [id number] [address] [place] [address] Jul, [facility] [address] [facility] [id number] [address] [place] [address] Jul, [facility] [address] [facility] [id number] [address] [place] [address] May, Back pain M54.9 ; Diabetes E 11.9 ; Insulin long-term use Z79.4 ; COPD (chronic obstructive pulmonary disease) J44.9 and Hypertension I10 [facility] [address] [id number] [address] [place] [address] May, Chronic pain G89.29 [facility] [address] [facility] [id number] [address] [place] [address] Apr, [facility] [address] [facility] [id number] [address] [place] [address] Apr, [facility] [address] [facility] [id number] [address] [place] [address] Mar, [facility] [address] [id number] [address] [place] [address] Mar, Encounter for immunization Z 23 and Diabetes E11.9 [facility] [address] [id number] [address] [place] [address] Feb, [facility] [address] [id number] [address] [place] [address] Feb, [facility] [address] [id number] [address] [place] [address] Jan, [facility] [address] [id number] [address] [place] [address] Jan, [facility] [address] [id number] [address] [place] [address] Dec, [facility] [address] [id number] [address] [place] [id number] Dec, [facility] [address] [id number] [address] [place] [address] Dec, Unspecified arthropathy, sit e unspecified 716.90 and Diabetes mellitus type 2, uncontrolled 250.02 [facility] [address] [id number] [address] [place] [address] Dec, [facility] [address] [id number] [address] [place] [address] Nov, [facility] [address] [id number] [address] [place] [id number] Oct, [facility] [address] [id number] [address] [place] [address] September, [facility] [address] [id number] [address] [place] [address] September, [facility] [address] [id number] [address] [place] [address] September, [facility] [address] [id number] [facility] [place] [address] 11 Sep, 2014 [facility] [address] [id number] [address] [place] [address], [place] [address] 14 Aug, 2014 [facility] [address] [id number] [address] [place] [address], [place] [address] 13 Aug, 2014 [facility] [address] [id number] [address] [place] [address], [place] [address] 18 Jul, 2014 [facility] [address] [id number] [address] [place] [address], [place] [address] 18 Jul, 2014 [facility] [address] [id number] [address] [place] [address], [place] [address] 16 Jul, 2014 [facility] [address] [id number] [address] [place] [address], [place] [address] 16 Jul, 2014 [facility] [address] [id number] [address] [place] [address], [place] [address] 16 Jul, 2014 [facility] [address] [id number] [address] [place] [address], [place] [address] 16 Jul, 2014 [facility] [address] [id number] [address] [place] [address], [place] [address] 16 Jul, 2014 [facility] [address] [id number] [address] [place] [address], [place] [address] 16 Jul, 2014 [facility] [address] [id number] [address] [place] [address], [place] [address] 16 Jul, 2014 [facility] [address] [id number] [address] [place] [address], [place] [address] 13 Jul, 2014 [facility] [address] [id number] [address] [place] [address], [place] [address] 13 Jul, 2014 [facility] [address] [id number] [address] [place] [address], [place] [address] 09 Jul, 2014 [facility] [address] [id number] [address] [place] [address], [place] [address] 09 Jul, 2014 [facility] [address] [id number] [address] [place] [address], [place] [address] 17 Jul, 2014 [facility] [address] [id number] [address] [place] [address], [place] [address] 17 Jul, 2014 [facility] [address] [id number] [address] [place] [address], [place] [address] 16 Jul, 2014 [facility] [address] [id number] [address] [place] [address], [place] [address] 16 Jul, 2014 [facility] [address] [id number] [address] [place] [address], [place] [address] 16 Jul, 2014 [facility] [address] [id number] [address] [place] [address], [place] [address] 16 Jul, 2014 [facility] [address] [id number] [address] [place] [address], [place] [address] 16 Jul, 2014 [facility] [address] [id number] [address] [place] [address], [place] [address] 16 Jul, 2014 [facility] [address] [id number] [address] [place] [address], [place] [address] 16 Jul, 2014 [facility] [address] [id number] [address] [place] [id number] 16 Jul, 2014 [facility] [address] [id number] [address] [place] [id number] 16 Jul, 2014 [facility] [address] [id number] [address] [place] [address], [place] [address] 16 Jul, 2014 [facility] [address] [id number] [address] [place] [address], [place] [address] 16 Jul, 2014 [facility] [address] [id number] [address] [place] [id number] 16 Jul, 2014 [facility] [address] [id number] [address] [place] [id number] Jul, [facility] [address] [id number] [address] [place] [address], [place] [address] Jul, [facility] [address] [id number] [address] [place] [address], [place] [address] May, [facility] [address] [id number] [address] [place] [address], [place] [address] May, [facility] [address] [id number] [address] [place] [address], [place] [address] May, [facility] [address] [id number] [address] [place] [address], [place] [address] May, [facility] [address] [id number] [address] [place] [address], [place] [address] May, [facility] [address] [id number] [address] [place] [address], [place] [address] May, [facility] [address] [id number] [address] [place] [address], [place] [address] May, [facility] [address] [id number] [address] [place] [address], [place] [address] May, [facility] [address] [id number] [address] [place] [address], [place] [address] May, [facility] [address] [id number] [address] [place] [address], [place] [address] May, [facility] [address] [id number] [address] [place] [address], [place] [address] Apr, [facility] [address] [id number] [address] [place] [address], [place] [address] Apr, [facility] [address] [id number] [address] [place] [address], [place] [address] Apr, [facility] [address] [id number] [address] [place] [address], [place] [address] Apr, [facility] [address] [id number] [address] [place] [address], [place] [address] Apr, [facility] [address] [id number] [address] [place] [address], [place] [address] Apr, [facility] [address] [id number] [address] [place] [address], [place] [address] Mar, [facility] [address] [id number] [address] [place] [address], [place] [address] Mar, [facility] [address] [id number] [address] [place] [address], [place] [address] Mar, [facility] [address] [id number] [address] [place] [address], [place] [address] Mar, [facility] [address] [id number] [address] [place] [address], [place] [address] Mar, [facility] [address] [id number] [address] [place] [address], [place] [address] Mar, [facility] [address] [id number] [address] [place] [address], [place] [address] Mar, [facility] [address] [id number] [address] [place] [address], [place] [address] Mar, [facility] [address] [id number] [address] [place] [address], [place] [address] Mar, [facility] [address] [id number] [address] [place] [address], [place] [address] Mar, [facility] [address] [id number] [address] [place] [address], [place] [address] Mar, [facility] [address] [id number] [address] [place] [address], [place] [address] Feb, [facility] [address] [id number] [address] [place] [address], [place] [address] Feb, [facility] [address] [id number] [address] [place] [address], [place] [address] Feb, [facility] [address] [id number] [address] [place] [address], [place] [address] 15 Feb, 2014 [facility] [address] [id number] [address] [place] [address], [place] [address] Feb, [facility] [address] [id number] [address] [place] [address], [place] [address] Feb, [facility] [address] [id number] [address] [place] [address], [place] [address] Feb, [facility] [address] [id number] [address] [place] [address], [place] [address] Feb, [facility] [address] [id number] [address] [place] [address], [place] [address] Feb, [facility] [address] [id number] [address] [place] [address], [place] [address] Feb, [facility] [address] [id number] [address] [place] [address], [place] [address] Jan, [facility] [address] [id number] [address] [place] [address], [place] [address] 22 Jan, 2014 [facility] [address] [id number] [address] [place] [address], [place] [address] 16 Jan, 2014 [facility] [address] [id number] [address] [place] [address], [place] [address] 16 Jan, 2014 [facility] [address] [id number] [address] [place] [address], [place] [address] 12 Jan, 2014 [facility] [address] [id number] [address] [place] [address], [place] [address] Jan, [facility] [address] [id number] [address] [place] [address], [place] [address] Jan, [facility] [address] [id number] [address] [place] [address], [place] [address] Dec, [facility] [address] [id number] [address] [place] [address] [place] [address] Dec, [facility] [address] [id number] [address] [place] [address], [place] [address] Dec, [facility] [address] [id number] [address] [place] [address], [place] [address] Dec, [facility] [address] [id number] [address] [place] [address], [place] [address] Dec, [facility] [address] [id number] [address] [place] [address], [place] [address] Dec, [facility] [address] [id number] [address] [place] [address], [place] [address] Dec, [facility] [address] [id number] [address] [place] [address], [place] [address] Dec, [facility] [address] [id number] [address] [place] [address], [place] [address] Oct, [facility] [address] [id number] [address] [place] [address], [place] [address] Oct, [facility] [address] [id number] [address] [place] [address], [place] [address] September, [facility] [address] [id number] [address] [place] [address], [place] [address] September, [facility] [address] [id number] [address] [place] [address], [place] [address] September, [facility] [address] [id number] [address] [place] [address], [place] [address] September, [facility] [address] [id number] [address] [place] [address], [place] [address] September, [facility] [address] [id number] [address] [place] [address], [place] [address] September, [facility] [address] [id number] [address] [place] [address], [place] [address] September, [facility] [address] [id number] [address] [place] [address], [place] [address] 15 Aug, 2013 [facility] [address] [id number] [address] [place] [address], [place] [address] Aug, [facility] [address] [id number] [address] [place] [address], [place] [address] 24 Jul, 2013 [facility] [address] [id number] [address] [place] [address], [place] [address] 24 Jul, 2013 [facility] [address] [id number] [address] [place] [address], [place] [address] Jul, [facility] [address] [id number] [address] [place] [address], [place] [address] Jul, [facility] [address] [id number] [address] [place] [address], [place] [address] Jul, [facility] [address] [id number] [address] [place] [address], [place] [address] Jul, [facility] [address] [id number] [address] [place] [address], [place] [address] Jul, [facility] [address] [id number] [address] [place] [address], [place] [address] Jul, [facility] [address] [id number] [address] [place] [address], [place] [address] May, [facility] [address] [id number] [address] [place] [address], [place] [address] May, [facility] [address] [id number] [address] [place] [address], [place] [address] May, [facility] [address] [id number] [address] [place] [address], [place] [address] May, [facility] [address] [id number] [address] [place] [address], [place] [address] 18 Apr, 2013 [facility] [address] [id number] [address] [place] [address] Mar, [facility] [address] [id number] [address] [place] [address], [place] [address] Mar, [facility] [address] [id number] [address] [place] [address] Mar, [facility] [address] [id number] [address] [place] [address] Mar, [facility] [address] [id number] [address] [place] [address] Mar, [facility] [address] [id number] [address] [place] [address], [place] [address] Mar, [facility] [address] [id number] [address] [place] [address] Mar, [facility] [address] [id number] [address] [place] [address] Mar, [facility] [address] [id number] [address] [place] [address] Mar, [facility] [address] [id number] [address] [place] [address] Mar, [facility] [address] [id number] [address] [place] [address] Mar, [facility] [address] [id number] [address] [place] [address] 04 Mar, 2013 [facility] [address] [id number] [address] [place] [address] 15 Feb, 2013 [facility] [address] [id number] [address] [place] [address] 15 Feb, 2013 [facility] [address] [id number] [address] [place] [address] 11 Feb, 2013 [facility] [address] [id number] [address] [place] [address] 11 Feb, 2013 [facility] [address] [id number] [address] [place] [address], [place] [address] Feb, [facility] [address] [id number] [address] [place] [address], [place] [address] Jan, [facility] [address] [id number] [address] [place] [address], [place] [address] Dec, [facility] [address] [id number] [address] [place] [address], [place] [address] Dec, [facility] [address] [id number] [address] [place] [address], [place] [address] Dec, [facility] [address] [id number] [address] [place] [address], [place] [address] Nov, [facility] [address] [id number] [address] [place] [address], [place] [address] Nov, [facility] [address] [id number] [address] [place] [address], [place] [address] Nov, [facility] [address] [id number] [address] [place] [address], [place] [address] Oct, [facility] [address] [id number] [address] [place] [address], [place] [address] Oct, [facility] [address] [id number] [address] [place] [address], [place] [address] Oct, [facility] [address] [id number] [address] [place] [address], [place] [address] September, [facility] [address] [id number] [address] [place] [address], [place] [address] September, [facility] [address] [id number] [address] [place] [address], [place] [address] September, [facility] [address] [id number] [address] [place] [address], [place] [address] September, [facility] [address] [id number] [address] [place] [address], [place] [address] September, [facility] [address] [id number] [address] [place] [address], [place] [address] Aug, [facility] [address] [id number] [address] [place] [address], [place] [address] Aug, [facility] [address] [id number] [address] [place] [address], [place] [address] Aug, [facility] [address] [id number] [address] [place] [address], [place] [address] Jul, [facility] [address] [id number] [address] [place] [address], [place] [address] Jul, [facility] [address] [id number] [address] [place] [address], [place] [address] Jul, [facility] [address] [id number] [address] [place] [address], [place] [address] Jul, [facility] [address] [id number] [address] [place] [address], [place] [address] Jul, [facility] [address] [id number] [address] [place] [address], [place] [address] Jul, [facility] [address] [id number] [address] [place] [address], [place] [address] Jul, [facility] [address] [id number] [address] [place] [address], [place] [address] May, [facility] [address] [id number] [address] [place] [address], [place] [address] May, [facility] [address] [id number] [address] [place] [address], [place] [address] May, [facility] [address] [id number] [address] [place] [address], [place] [address] Apr, [facility] [address] [id number] [address] [place] [address], [place] [address] Apr, [facility] [address] [id number] [address] [place] [address], [place] [address] Apr, [facility] [address] [id number] [address] [place] [address], [place] [address] Apr, [facility] [address] [id number] [address] [place] [address], [place] [address] Apr, [facility] [address] [id number] [address] [place] [address], [place] [address] Mar, [facility] [address] [id number] [address] [place] [address], [place] [address] Mar, [facility] [address] [id number] [address] [place] [address], [place] [address] Mar, [facility] [address] [id number] [address] [place] [address], [place] [address] Mar, [facility] [address] [id number] [address] [place] [address], [place] [address] Feb, [facility] [address] [id number] [address] [place] [address], [place] [address] Feb, [facility] [address] [id number] [address] [place] [address], [place] [address] Feb, [facility] [address] [id number] [address] [place] [address], [place] [address] Feb, [facility] [address] [id number] [address] [place] [address], [place] [address] Feb, [facility] [address] [id number] [address] [place] [address], [place] [address] Jan, [facility] [address] [id number] [address] [place] [address], [place] [address] Dec, [facility] [address] [id number] [address] [place] [address], [place] [address] Dec, [facility] [address] [id number] [address] [place] [address], [place] [address] Dec, [facility] [address] [id number] [address] [place] [address], [place] [address] Nov, [facility] [address] [id number] [address] [place] [address], [place] [address] Nov, [facility] [address] [id number] [address] [place] [address], [place] [address] Nov, [facility] [address] [id number] [address] [place] [address], [place] [address] Oct, [facility] [address] [id number] [address] [place] [address], [place] [address] Oct, [facility] [address] [id number] [address] [place] [address], [place] [address] Oct, [facility] [address] [id number] [address] [place] [address], [place] [address] Oct, [facility] [address] [id number] [address] [place] [address], [place] [address] September, [facility] [address] [id number] [address] [place] [address], [place] [address] September, [facility] [address] [id number] [address] [place] [address], [place] [address] 30 Aug, 2011 [facility] [address] [id number] [address] [place] [address], [place] [address] Aug, [facility] [address] [id number] [address] [place] [address], [place] [address] Aug, [facility] [address] [id number] [address] [place] [address], [place] [address] Aug, [facility] [address] [id number] [address] [place] [address], [place] [address] 06 Aug, 2011 [facility] [address] [id number] [address] [place] [address], [place] [address] 05 Aug, 2011 [facility] [address] [id number] [address] [place] [address] 05 Aug, 2011 [facility] [address] [id number] [address] [place] [address], [place] [address] Jul, [facility] [address] [id number] [address] [place] [address], [place] [address] Jul, [facility] [address] [id number] [address] [place] [address], [place] [address] Jul, [facility] [address] [id number] [address] [place] [address], [place] [address] May, [facility] [address] [id number] [address] [place] [address], [place] [address] May, [facility] [address] [id number] [address] [place] [address], [place] [address] May, [facility] [address] [id number] [address] [place] [address] Apr, [facility] [address] [id number] [address] [place] [address], [place] [address] Apr, [facility] [address] [id number] [address] [place] [address], [place] [address] Mar, [facility] [address] [id number] [address] [place] [address], [place] [address] Mar, [facility] [address] [id number] [address] [place] [address], [place] [address] Mar, [facility] [address] [id number] [address] [place] [id number] Mar, [facility] [address] [id number] [address] [place] [address], [place] [address] Mar, [facility] [address] [id number] [address] [place] [address], [place] [address] Mar, [facility] [address] [id number] [address] [place] [address], [place] [address] Feb, [facility] [address] [facility] [id number] [address] [address] 14 Feb, 2011 [facility] [address] [facility] [id number] [address] [address] Feb, IMMUNIZATIONS No Known Immunizations SOCIAL HISTORY Never Assessed REASON FOR VISIT [place] [place] VITAL SIGNS MEDICATIONS Unknown [...]
--- OUTSIDE RECORDS SUMMARY | 2020-01-03 07:57 | XMS REPORT ---
Author Author Tra Landeros Doctor Organization [facility] Address Unknown Phone Unavailable Care Team Providers Care Hand Splitter Name Role Phone Migration, Doctor Unavailable Unavailable PROBLEMS Type Condition ICD9-CM Code [id number] Code Onset Dates Condition S tatus SNOMED Code Problem Insulin long-term use Z79.4 Active 531876459 Problem Hypertension I10 Active 6282505 3 Problem Diabetes E11.9 Active 68713844 Problem Hypoxia R09.02 Active 121520231 Problem Anxiety F41.9 Active 04260363 Problem Port catheter in place Z95.828 Active 362820245 Problem Pressure ulcer of other site, stage 3 L89.893 Active 248043043 Problem COPD (chronic obstructive pulmonary disease) J44.9 Active 43242470 Problem Type 2 diabetes mellitus wit h diabetic peripheral angiopathy without gangrene E11.51 Active 089442764 Problem Back pain M54.9 Active 971264218 Problem PAD (peripheral artery disease) I73.9 Active 549948417 Problem Lumbar radiculopathy, chronic M54.16 Active 211588905 Problem Recurrent major depressive disorder, in full remission F33.42 Active 456224873 Problem 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 Active 198823150 ALLERGIES No Information ENCOUNTERS Encounter Location Date Diagnosis [place] [id number] [facility] [id number] [address] [place] [phone] Aug, [facility] [address] [place] [id number] [address] [place] [id number] Aug, Pressure ulcer of other site , stage 3 L89.893 and COPD (chronic obstructive pulmonary disease) J44.9 [facility] [address] [facility] [id number] [address] [place] [phone] Aug, History of smoking Z87.891 [facility] [address] [facility] [id number] [address] [place] [address] Jul, Type 2 diabetes mellitus wit h diabetic peripheral angiopathy without gangrene E11.51 [facility] [address] [id number] [address] [place] [phone] 25 Jul, 2018 Back pain M54.9 [facility] [address] [id number] [address] [place] [phone] 19 Jul, 2018 Anxiety F41.9 [facility] [address] [id number] [address] [place] [phone] 18 Jul, 2018 [facility] [address] [id number] [address] [place] [phone] 13 Jul, 2018 Back pain M54.9 [facility] [address] [id number] [address] [place] [phone] Jul, Back pain M54.9 [facility] [address] [id number] [address] [place] [phone] Jul, Lumbar radiculopathy, chroni c M54.16 ; Hypertension I10 and Type 2 diabetes mellitus with diabetic peripheral angiopathy without gangrene E11.51 [facility] [address] [id number] [address] [place] [phone] 25 Jul, 2018 Back pain M54.9 [facility] [address] [id number] [address] [place] [phone] Jul, Back pain M54.9 and Anxiety F41.9 [facility] [address] [id number] [address] [place] [address] Jul, [facility] [address] [id number] [address] [place] [phone] May, Back pain M54.9 and Anxiety F41.9 [facility] [address] [id number] [address] [place] [phone] May, [facility] [address] [id number] [address] [place] [phone] Apr, Radiculopathy of lumbar rhiannon on M54.16 ; Back pain M54.9 and Anxiety F41.9 [facility] [address] [id number] [address] [place] [address] Apr, Diabetes E11.9 ; Muscle spas m M62.838 and Lumbar radiculopathy, chronic M54.16 [facility] [address] [id number] [address] [place] [phone] Apr, [facility] [address] [id number] [address] [place] [phone] Apr, [facility] [address] [id number] [address] [place] [phone] Mar, Back pain M54.9 and Anxiety F41.9 [facility] [address] [id number] [address] [place] [phone] Mar, [facility] [address] [id number] [address] [place] [address] Mar, [facility] [address] [id number] [address] [place] [phone] Mar, [facility] [address] [id number] [address] [place] [phone] Mar, Encounter for immunization Z 23 [facility] [address] [id number] [address] [place] [phone] Feb, Back pain M54.9 and Anxiety F41.9 [facility] [address] [id number] [address] [place] [id number] 04 Feb, 2018 Back pain M54.9 and Anxiety F41.9 [facility] [address] [id number] [address] [place] [address] Jan, Back pain M54.9 and Anxiety F41.9 [facility] [address] [id number] [address] [place] [phone] Jan, [facility] [address] [id number] [address] [place] [phone] Dec, [facility] [address] [id number] [address] [place] [address] Dec, Back pain M54.9 and Anxiety F41.9 [facility] [address] [id number] [address] [place] [address] Dec, Diabetes E11.9 ; Type 2 diab etes mellitus with diabetic peripheral angiopathy without gangrene E11.51 ; Lumbar radiculopathy, chronic M54.16 ; COPD (chronic obstructive pulmonary disease) J44.9 and Anxiety F41.9 [facility] [address] [id number] [address] [place] [address] Dec, Back pain M54.9 and Anxiety F41.9 [facility] [address] [id number] [address] [place] [phone] Nov, Back pain M54.9 and Anxiety F41.9 [facility] [address] [id number] [address] [place] [phone] Oct, [facility] [address] [id number] [address] [place] [address] Oct, Back pain M54.9 and Anxiety F41.9 [facility] [address] [id number] [address] [place] [phone] September, Anxiety F41.9 and Back pain M54.9 [facility] [address] [id number] [address] [place] [id number] September, Diabetes E11.9 ; Hypertensio n I10 ; COPD (chronic obstructive pulmonary disease) J44.9 and Lumbar radiculopathy, chronic M54.16 [facility] [address] [id number] [address] [place] [phone] September, Anxiety F41.9 [facility] [address] [id number] [address] [place] [id number] Aug, [facility] [address] [id number] [address] [place] [phone] Aug, [facility] [address] [id number] [address] [place] [address] Aug, Anxiety F41.9 and Back pain M54.9 [facility] [address] [id number] [address] [place] [phone] Aug, Medicare annual wellness vis it, initial [...] peripheral angiopathy without gangrene E11.51 and 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 [facility] [address] [id number] [address] [place] [address] Jul, Back pain M54.9 [facility] [address] [id number] [address] [place] [id number] Jul, [facility] [address] [id number] [address] [place] [address] Jul, Anxiety F41.9 and Back pain M54.9 [facility] [address] [id number] [address] [place] [phone] Jul, Diabetes E11.9 [facility] [address] [id number] [address] [place] [phone] May, [facility] [address] [id number] [address] [place] [address] May, Diabetes E11.9 ; Anxiety F41 .9 ; Back pain M54.9 and COPD (chronic obstructive pulmonary disease) J44.9 [facility] [address] [id number] [address] [place] [phone] May, Back pain M54.9 [facility] [address] [id number] [address] [place] [phone] May, [facility] [address] [id number] [address] [place] [address] Apr, Back pain M54.9 [facility] [address] [id number] [address] [place] [phone] Mar, Back pain M54.9 [facility] [address] [id number] [address] [place] [address] Mar, [facility] [address] [id number] [address] [place] [phone] Mar, [facility] [address] [id number] [address] [place] [phone] 14 Mar, 2017 Radiculopathy of lumbar rhiannon on M54.16 [facility] [address] [id number] [address] [place] [address] Mar, [facility] [address] [id number] [address] [place] [phone] 07 Mar, 2017 Encounter for immunization Z 23 and Lumbar radiculopathy, chronic M54.16 [facility] [address] [id number] [address] [place] [phone] Mar, Back pain M54.9 and Anxiety F41.9 [facility] [address] [id number] [address] [place] [phone] Feb, Acute bilateral low back boy n with left-sided sciatica M54.42 and Acute bilateral low back pain with right-sided sciatica M54.41 [facility] [address] [id number] [address] [place] [phone] Feb, [facility] [address] [id number] [address] [place] [phone] Feb, Back pain M54.9 [facility] [address] [id number] [address] [place] [phone] 05 Jan, 2017 Back pain M54.9 and Anxiety F41.9 [facility] [address] [id number] [address] [place] [phone] 05 Jan, 2017 Diabetes E11.9 [facility] [address] [id number] [address] [place] [phone] Dec, Diabetes E11.9 ; Back pain M 54.9 ; Anxiety F41.9 and Insulin long- term use Z79.4 [facility] [address] [id number] [address] [place] [phone] Dec, Anxiety F41.9 [facility] [address] [id number] [address] [place] [phone] Dec, Back pain M54.9 [facility] [address] [id number] [address] [place] [id number] Nov, Back pain M54.9 [facility] [address] [id number] [address] [place] [phone] Oct, Back pain M54.9 and Anxiety F41.9 [facility] [address] [id number] [address] [place] [phone] September, Back pain M54.9 [facility] [address] [id number] [address] [place] [address] September, Back pain M54.9 and Anxiety F41.9 [facility] [address] [id number] [address] [place] [phone] Aug, Diabetes E11.9 ; Anxiety F41 .9 ; Back pain M54.9 and PAD (peripheral artery disease) I73.9 [facility] [address] [id number] [address] [place] [phone] Aug, Anxiety F41.9 [facility] [address] [id number] [address] [place] [address] Aug, Back pain M54.9 [facility] [address] [id number] [address] [place] [address] Jul, Back pain M54.9 [facility] [address] [id number] [address] [place] [address] Jul, Back pain M54.9 [facility] [address] [id number] [address] [place] [phone] Jul, Back pain M54.9 [facility] [address] [id number] [address] [place] [phone] 16 Jul, 2016 Dorsalgia M54.9 [facility] [address] [id number] [address] [place] [id number] Jul, [facility] [address] [id number] [address] [place] [address] May, Back pain M54.9 [facility] [address] [id number] [address] [place] [address] May, Diabetes E11.9 ; Anxiety F41 .9 ; Port catheter in place Z95.828 ; Encounter for immunization Z23 and Insulin long-term use Z79.4 [facility] [address] [id number] [address] [place] [phone] Apr, Back pain M54.9 [facility] [address] [id number] [address] [place] [phone] Apr, Back pain M54.9 [facility] [address] [id number] [address] [place] [address] Apr, [facility] [address] [id number] [address] [place] [address] Apr, Back pain M54.9 [facility] [address] [id number] [address] [place] [phone] Mar, COPD (chronic obstructive pu lmonary disease) J44.9 [facility] [address] [id number] [address] [place] [phone] Feb, [facility] [address] [id number] [address] [place] [phone] 30 Jan, 2016 [facility] [address] [id number] [address] [place] [phone] 20 Jan, 2016 [facility] [address] [id number] [address] [place] [phone] 07 Jan, 2016 [facility] [address] [id number] [address] [place] [address] 02 Jan, 2016 [facility] [address] [id number] [address] [place] [phone] Dec, Diabetes E11.9 ; Hypoxia R09 .02 and Back pain M54.9 [facility] [address] [id number] [address] [place] [phone] Dec, [facility] [address] [id number] [address] [place] [address] Nov, [facility] [address] [id number] [address] [place] [phone] 15 Oct, 2015 Anxiety F41.9 [facility] [address] [id number] [address] [place] [address] Oct, Back pain M54.9 [facility] [address] [id number] [address] [place] [address] September, Back pain M54.9 [facility] [address] [id number] [address] [place] [address] September, Diabetes E11.9 [facility] [address] [id number] [address] [place] [phone] September, [facility] [address] [id number] [address] [place] [address] September, Diabetes E11.9 ; Insulin sarai g-term use Z79.4 and Back pain M54.9 [facility] [address] [id number] [address] [place] [address] Aug, Back pain M54.9 [facility] [address] [facility] [id number] [address] [place] [phone] Aug, Back pain M54.9 ; Anxiety F4 1.9 and Arthropathy, unspecified M12.9 [facility] [address] [facility] [id number] [address] [place] [address] Jul, Back pain M54.9 [facility] [address] [facility] [id number] [address] [place] [address] Jul, Anxiety F41.9 [facility] [address] [facility] [id number] [address] [place] [phone] Jul, Back pain M54.9 [facility] [address] [facility] [id number] [address] [place] [phone] Jul, [facility] [address] [place] [id number] [address] [place] [phone] Jul, [facility] [address] [facility] [id number] [address] [place] [address] May, Back pain M54.9 ; Diabetes E 11.9 ; Insulin long-term use Z79.4 ; COPD (chronic obstructive pulmonary disease) J44.9 and Hypertension I10 [facility] [address] [place] [id number] [address] [place] [address] May, Chronic pain G89.29 [facility] [address] [facility] [id number] [address] [place] [phone] Apr, [facility] [address] [facility] [id number] [address] [place] [phone] Apr, [facility] [address] [place] [id number] [place] [phone] Mar, [facility] [address] [facility] [id number] [address] [place] [phone] Mar, Encounter for immunization Z 23 and Diabetes E11.9 [facility] [address] [id number] [address] [place] [address], [place] [address] Feb, [facility] [address] [id number] [address] [place] [phone] Feb, [facility] [address] [id number] [address] [place] [phone] Jan, [facility] [address] [id number] [address] [place] [address] Jan, [facility] [address] [id number] [address] [place] [phone] Dec, [facility] [address] [id number] [address] [place] [address] Dec, [facility] [address] [id number] [address] [place] [address] Dec, Unspecified arthropathy, sit e unspecified 716.90 and Diabetes mellitus type 2, uncontrolled 250.02 [facility] [address] [id number] [address] [place] [phone] Dec, [facility] [address] [id number] [address] [place] [phone] Nov, [facility] [address] [id number] [address] [place] [phone] Oct, [facility] [address] [id number] [address] [place] [address] September, [facility] [address] [id number] [address] [place] [phone] September, [facility] [address] [id number] [address] [place] [phone] September, [facility] [address] [id number] [address] [place] [phone] September, [facility] [address] [id number] [address] [place] [address] Aug, [facility] [address] [id number] [facility] [place] [address] 13 Aug, 2014 [facility] [address] [id number] [address] [place] [address], [place] [address] 18 Jul, 2014 [facility] [address] [id number] [address] [place] [address], [place] [address] 18 Jul, 2014 [facility] [address] [id number] [address] [place] [address], [place] [phone] 16 Jul, 2014 [facility] [address] [id number] [address] [place] [address], [place] [address] 16 Jul, 2014 [facility] [address] [id number] [address] [place] [address], [place] [address] 16 Jul, 2014 [facility] [address] [id number] [address] [place] [address], [place] [address] 16 Jul, 2014 [facility] [address] [id number] [address] [place] [address], [place] [address] 16 Jul, 2014 [facility] [address] [id number] [address] [place] [address], [place] [address] 16 Jul, 2014 [facility] [address] [id number] [address] [place] [address], [place] [address] 16 Jul, 2014 [facility] [address] [id number] [address] [place] [address], [place] [address] 13 Jul, 2014 [facility] [address] [id number] [address] [place] [address], [place] [address] 13 Jul, 2014 [facility] [address] [id number] [address] [place] [address], [place] [address] 09 Jul, 2014 [facility] [address] [id number] [address] [place] [address], [place] [address] 09 Jul, 2014 [facility] [address] [id number] [address] [place] [address], [place] [address] 17 Jul, 2014 [facility] [address] [id number] [address] [place] [address], [place] [address] 17 Jul, 2014 [facility] [address] [id number] [address] [place] [address], [place] [address] 16 Jul, 2014 [facility] [address] [id number] [address] [place] [address], [place] [address] 16 Jul, 2014 [facility] [address] [id number] [address] [place] [address], [place] [address] 16 Jul, 2014 [facility] [address] [id number] [address] [place] [address], [place] [address] 16 Jul, 2014 [facility] [address] [id number] [address] [place] [address], [place] [address] 16 Jul, 2014 [facility] [address] [id number] [address] [place] [address], [place] [address] 16 Jul, 2014 [facility] [address] [id number] [address] [place] [address], [place] [address] 16 Jul, 2014 [facility] [address] [id number] [address] [place] [address], [place] [address] 16 Jul, 2014 [facility] [address] [id number] [address] [place] [address], [place] [address] 16 Jul, 2014 [facility] [address] [id number] [address] [place] [address], [place] [address] 16 Jul, 2014 [facility] [address] [id number] [address] [place] [address], [place] [address] 16 Jul, 2014 [facility] [address] [id number] [address] [place] [address], [place] [address] 16 Jul, 2014 [facility] [address] [id number] [address] [place] [address], [place] [address] 16 Jul, 2014 [facility] [address] [id number] [address] [place] [address], [place] [address] 16 Jul, 2014 [facility] [address] [id number] [address] [place] [address], [place] [address] May, [facility] [address] [id number] [address] [place] [address], [place] [address] May, [facility] [address] [id number] [address] [place] [address], [place] [address] May, [facility] [address] [id number] [address] [place] [address], [place] [address] May, [facility] [address] [id number] [address] [place] [address], [place] [address] May, [facility] [address] [id number] [address] [place] [address], [place] [address] May, [facility] [address] [id number] [address] [place] [address], [place] [address] May, [facility] [address] [id number] [address] [place] [address], [place] [address] May, [facility] [address] [id number] [address] [place] [address], [place] [address] May, [facility] [address] [id number] [address] [place] [address], [place] [address] May, [facility] [address] [id number] [address] [place] [address], [place] [address] Apr, [facility] [address] [id number] [address] [place] [address], [place] [address] Apr, [facility] [address] [id number] [address] [place] [address], [place] [address] Apr, [facility] [address] [id number] [address] [place] [address], [place] [address] Apr, [facility] [address] [id number] [address] [place] [address], [place] [address] Apr, [facility] [address] [id number] [address] [place] [address], [place] [address] Apr, [facility] [address] [id number] [address] [place] [address] Mar, [facility] [address] [id number] [address] [place] [address], [place] [address] Mar, [facility] [address] [id number] [address] [place] [address] Mar, [facility] [address] [id number] [address] [place] [address], [place] [address] Mar, [facility] [address] [id number] [address] [place] [address], [place] [address] Mar, [facility] [address] [id number] [address] [place] [address], [place] [address] Mar, [facility] [address] [id number] [address] [place] [address], [place] [address] Mar, [facility] [address] [id number] [address] [place] [address], [place] [address] Mar, [facility] [address] [id number] [address] [place] [address], [place] [address] Mar, [facility] [address] [id number] [address] [place] [address], [place] [address] Mar, [facility] [address] [id number] [address] [place] [address], [place] [address] Mar, [facility] [address] [id number] [address] [place] [address] Feb, [facility] [address] [id number] [address] [place] [address] 30 Feb, 2014 [facility] [address] [id number] [address] [place] [address], [place] [address] 15 Feb, 2014 [facility] [address] [id number] [address] [place] [id number] 15 Feb, 2014 [facility] [address] [id number] [address] [place] [address], [place] [address] 13 Feb, 2014 [facility] [address] [id number] [address] [place] [address], [place] [address] Feb, [facility] [address] [id number] [address] [place] [address], [place] [address] Feb, [facility] [address] [id number] [address] [place] [address], [place] [address] Feb, [facility] [address] [id number] [address] [place] [address], [place] [address] Feb, [facility] [address] [id number] [address] [place] [address], [place] [address] Feb, [facility] [address] [id number] [address] [place] [address], [place] [address] Jan, [facility] [address] [id number] [address] [place] [address], [place] [address] Jan, 2013 [facility] [address] [id number] [address] [place] [address], [place] [address] 16 Jan, 2013 [facility] [address] [id number] [address] [place] [address], [place] [address] 16 Jan, 2014 [facility] [address] [id number] [address] [place] [address], [place] [address] Jan, [facility] [address] [id number] [address] [place] [address], [place] [address] Jan, [facility] [address] [id number] [address] [place] [address], [place] [address] Jan, [facility] [address] [id number] [address] [place] [address], [place] [address] Dec, [facility] [address] [id number] [address] [place] [address], [place] [address] Dec, [facility] [address] [id number] [address] [place] [address], [place] [address] Dec, [facility] [address] [id number] [address] [place] [address], [place] [address] Dec, [facility] [address] [id number] [facility] [place] [address] Dec, [facility] [address] [id number] [address] [place] [address], [place] [address] Dec, [facility] [address] [id number] [address] [place] [address], [place] [address] Dec, [facility] [address] [id number] [address] [place] [address], [place] [address] Dec, [facility] [address] [id number] [address] [place] [address], [place] [address] Oct, [facility] [address] [id number] [address] [place] [address], [place] [address] Oct, [facility] [address] [id number] [address] [place] [address], [place] [address] September, [facility] [address] [id number] [address] [place] [address], [place] [address] September, [facility] [address] [id number] [address] [place] [address], [place] [address] September, [facility] [address] [id number] [address] [place] [address], [place] [address] September, [facility] [address] [id number] [address] [place] [address], [place] [address] September, [facility] [address] [id number] [address] [place] [address], [place] [address] September, [facility] [address] [id number] [address] [place] [address], [place] [address] September, [facility] [address] [id number] [address] [place] [address], [place] [address] Aug, [facility] [address] [id number] [address] [place] [address], [place] [address] Aug, [facility] [address] [id number] [address] [place] [address], [place] [address] Jul, [facility] [address] [id number] [address] [place] [address], [place] [address] Jul, [facility] [address] [id number] [address] [place] [address], [place] [address] Jul, [facility] [address] [id number] [address] [place] [address], [place] [address] Jul, [facility] [address] [id number] [address] [place] [address], [place] [address] Jul, [facility] [address] [id number] [address] [place] [address], [place] [address] Jul, [facility] [address] [id number] [address] [place] [address], [place] [address] Jul, [facility] [address] [id number] [address] [place] [address], [place] [address] Jul, [facility] [address] [id number] [address] [place] [address], [place] [address] May, [facility] [address] [id number] [address] [place] [address], [place] [address] May, [facility] [address] [id number] [address] [place] [address], [place] [address] May, [facility] [address] [id number] [address] [place] [address], [place] [address] May, [facility] [address] [id number] [address] [place] [address], [place] [address] Apr, [facility] [address] [id number] [address] [place] [address], [place] [address] Mar, [facility] [address] [id number] [address] [place] [address], [place] [address] Mar, [facility] [address] [id number] [address] [place] [address], [place] [address] Mar, [facility] [address] [id number] [address] [place] [address], [place] [address] Mar, [facility] [address] [id number] [address] [place] [address], [place] [address] Mar, [facility] [address] [id number] [address] [place] [address], [place] [address] Mar, [facility] [address] [id number] [address] [place] [address], [place] [address] Mar, [facility] [address] [id number] [address] [place] [address], [place] [address] Mar, [facility] [address] [id number] [address] [place] [address] Mar, [facility] [address] [id number] [address] [place] [address], [place] [address] Mar, [facility] [address] [id number] [address] [place] [address] Mar, [facility] [address] [id number] [address] [place] [address], [place] [address] Mar, [facility] [address] [id number] [address] [place] [id number] 15 Feb, 2013 [facility] [address] [id number] [address] [place] [address] Feb, [facility] [address] [id number] [address] [place] [address] Feb, [facility] [address] [id number] [address] [place] [address] Feb, [facility] [address] [id number] [address] [place] [address] 07 Feb, 2013 [facility] [address] [id number] [address] [place] [id number] 04 Jan, 2013 [facility] [address] [id number] [address] [place] [address], [place] [address] Dec, [facility] [address] [id number] [address] [place] [address], [place] [address] Dec, [facility] [address] [id number] [address] [place] [address], [place] [address] Dec, [facility] [address] [id number] [address] [place] [address], [place] [address] Nov, [facility] [address] [id number] [address] [place] [address], [place] [address] Nov, [facility] [address] [id number] [address] [place] [address], [place] [address] Nov, [facility] [address] [id number] [address] [place] [address], [place] [address] Oct, [facility] [address] [id number] [address] [place] [address], [place] [address] Oct, [facility] [address] [id number] [address] [place] [address], [place] [address] Oct, [facility] [address] [id number] [address] [place] [address], [place] [address] September, [facility] [address] [id number] [address] [place] [address], [place] [address] September, [facility] [address] [id number] [address] [place] [address], [place] [address] September, [facility] [address] [id number] [address] [place] [address], [place] [address] September, [facility] [address] [id number] [address] [place] [address], [place] [address] September, [facility] [address] [id number] [address] [place] [address], [place] [address] Aug, [facility] [address] [id number] [address] [place] [address], [place] [address] Aug, [facility] [address] [id number] [address] [place] [address], [place] [address] Aug, [facility] [address] [id number] [address] [place] [address], [place] [address] Jul, [facility] [address] [id number] [address] [place] [address], [place] [address] Jul, [facility] [address] [id number] [address] [place] [address], [place] [address] Jul, [facility] [address] [id number] [address] [place] [address], [place] [address] Jul, [facility] [address] [id number] [address] [place] [address], [place] [address] Jul, [facility] [address] [id number] [address] [place] [address], [place] [address] Jul, [facility] [address] [id number] [address] [place] [address], [place] [address] Jul, [facility] [address] [id number] [address] [place] [address], [place] [address] May, [facility] [address] [id number] [address] [place] [address], [place] [address] May, [facility] [address] [id number] [address] [place] [address], [place] [address] May, [facility] [address] [id number] [address] [place] [address], [place] [address] Apr, [facility] [address] [id number] [address] [place] [address], [place] [address] Apr, [facility] [address] [id number] [address] [place] [address], [place] [address] Apr, [facility] [address] [id number] [address] [place] [address], [place] [address] Apr, [facility] [address] [id number] [address] [place] [address], [place] [address] Apr, [facility] [address] [id number] [address] [place] [address], [place] [address] Mar, [facility] [address] [id number] [address] [place] [address], [place] [address] Mar, [facility] [address] [id number] [address] [place] [address], [place] [address] Mar, [facility] [address] [id number] [address] [place] [address], [place] [address] Mar, [facility] [address] [id number] [address] [place] [address], [place] [address] Feb, [facility] [address] [id number] [address] [place] [address], [place] [address] Feb, [facility] [address] [id number] [address] [place] [address], [place] [address] Feb, [facility] [address] [id number] [address] [place] [address], [place] [address] Feb, [facility] [address] [id number] [address] [place] [address], [place] [address] Feb, [facility] [address] [id number] [address] [place] [address], [place] [address] Jan, [facility] [address] [id number] [address] [place] [address], [place] [address] Dec, [facility] [address] [id number] [address] [place] [address], [place] [address] Dec, [facility] [address] [id number] [address] [place] [address], [place] [address] Dec, [facility] [address] [id number] [address] [place] [address], [place] [address] Nov, [facility] [address] [id number] [address] [place] [address], [place] [address] Nov, [facility] [address] [id number] [address] [place] [address], [place] [address] Nov, [facility] [address] [id number] [address] [place] [address], [place] [address] 29 Oct, 2011 [facility] [address] [id number] [address] [place] [address], [place] [address] Oct, [facility] [address] [id number] [address] [place] [address], [place] [address] Oct, [facility] [address] [id number] [address] [place] [address], [place] [address] Oct, [facility] [address] [id number] [address] [place] [address], [place] [address] September, [facility] [address] [id number] [address] [place] [address], [place] [address] September, [facility] [address] [id number] [address] [place] [address], [place] [address] 30 Aug, 2011 [facility] [address] [id number] [address] [place] [address], [place] [address] Aug, [facility] [address] [id number] [address] [place] [address], [place] [address] Aug, [facility] [address] [id number] [address] [place] [address], [place] [address] Aug, [facility] [address] [id number] [address] [place] [address], [place] [address] Aug, [facility] [address] [id number] [address] [place] [address], [place] [address] Aug, [facility] [address] [id number] [address] [place] [address], [place] [address] Aug, [facility] [address] [id number] [address] [place] [address], [place] [address] Jul, [facility] [address] [id number] [address] [place] [address], [place] [address] Jul, [facility] [address] [id number] [address] [place] [address] 14 Jul, 2011 [facility] [address] [id number] [address] [place] [address] May, [facility] [address] [id number] [address] [place] [id number] May, [facility] [address] [id number] [address] [place] [address] May, [facility] [address] [id number] [address] [place] [address] Apr, [facility] [address] [id number] [address] [place] [address] Apr, [facility] [address] [id number] [address] [place] [address] Mar, [facility] [address] [id number] [address] [place] [address] Mar, [facility] [address] [id number] [address] [place] [id number] Mar, [facility] [address] [id number] [address] [place] [address] Mar, [facility] [address] [id number] [address] [place] [id number] Mar, [facility] [address] [id number] [address] [place] [id number] Mar, [facility] [address] [id number] [address] [place] [id number] Feb, [facility] [address] [id number] [address] [place] [id number] Feb, [facility] [address] [id number] [address] [place] [id number] Feb, IMMUNIZATIONS No Known Immunizations SOCIAL HISTORY Never Assessed [place]AS[place] [place] VITAL SIGNS MEDICATIONS Unknown [...]
--- OUTSIDE RECORDS SUMMARY | 2020-01-03 07:57 | XMS REPORT ---
Author Author Tra Landeros Doctor Organization [facility] Address Unknown Phone Unavailable Care Team Providers Care Ui Software Developer Name Role Phone Migration, Doctor Unavailable Unavailable PROBLEMS Type Condition ICD9-CM Code XAV31-VP Code Onset Dates Condition S tatus SNOMED Code Problem Insulin long-term use Z79.4 Active 133920485 Problem Hypertension I10 Active 4034780 3 Problem Diabetes E11.9 Active 17516206 Problem Hypoxia R09.02 Active 909007630 Problem Anxiety F41.9 Active 87346441 Problem Port catheter in place Z95.828 Active 716632219 Problem Pressure ulcer of other site, stage 3 L89.893 Active 672682080 Problem COPD (chronic obstructive pulmonary disease) J44.9 Active 00049925 Problem Type 2 diabetes mellitus wit h diabetic peripheral angiopathy without gangrene E11.51 Active 804391978 Problem Back pain M54.9 Active 138602675 Problem PAD (peripheral artery disease) I73.9 Active 788711501 Problem Lumbar radiculopathy, chronic M54.16 Active 902369095 Problem Recurrent major depressive disorder, in full remission F33.42 Active 122805126 Problem 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 Active 378965747 ALLERGIES No Information ENCOUNTERS Encounter Location Date Diagnosis [place] [id number] [facility] [id number] [address] [place] [address] Aug, [facility] [address] [place] [id number] [address] [place] [address] Aug, Pressure ulcer of other site , stage 3 L89.893 and COPD (chronic obstructive pulmonary disease) J44.9 [facility] [address] [facility] [id number] [address] [place] [address] Aug, History of smoking Z87.891 [facility] [address] [facility] [id number] [address] [place] [address] Jul, Type 2 diabetes mellitus wit h diabetic peripheral angiopathy without gangrene E11.51 [facility] [address] [id number] [address] [place] [address] 25 Jul, 2018 Back pain M54.9 [facility] [address] [id number] [address] [place] [address] 19 Jul, 2018 Anxiety F41.9 [facility] [address] [id number] [address] [place] [address] 18 Jul, 2018 [facility] [address] [id number] [address] [place] [id number] 13 Jul, 2018 Back pain M54.9 [facility] [address] [id number] [address] [place] [address] Jul, Back pain M54.9 [facility] [address] [id number] [address] [place] [address] Jul, Lumbar radiculopathy, chroni c M54.16 ; Hypertension I10 and Type 2 diabetes mellitus with diabetic peripheral angiopathy without gangrene E11.51 [facility] [address] [id number] [address] [place] [address] 25 Jul, 2018 Back pain M54.9 [facility] [address] [id number] [address] [place] [address] Jul, Back pain M54.9 and Anxiety F41.9 [facility] [address] [id number] [address] [place] [address] Jul, [facility] [address] [id number] [address] [place] [address] May, Back pain M54.9 and Anxiety F41.9 [facility] [address] [id number] [address] [place] [address] May, [facility] [address] [id number] [address] [place] [address] Apr, Radiculopathy of lumbar rhiannon on M54.16 ; Back pain M54.9 and Anxiety F41.9 [facility] [address] [id number] [address] [place] [address] Apr, Diabetes E11.9 ; Muscle spas m M62.838 and Lumbar radiculopathy, chronic M54.16 [facility] [address] [id number] [address] [place] [address] Apr, [facility] [address] [id number] [address] [place] [address] Apr, [facility] [address] [id number] [address] [place] [address] Mar, Back pain M54.9 and Anxiety F41.9 [facility] [address] [id number] [address] [place] [address] Mar, [facility] [address] [id number] [address] [place] [address] Mar, [facility] [address] [id number] [address] [place] [address] Mar, [facility] [address] [id number] [address] [place] [address] Mar, Encounter for immunization Z 23 [facility] [address] [id number] [address] [place] [address] Feb, Back pain M54.9 and Anxiety F41.9 [facility] [address] [id number] [address] [place] [address] 04 Feb, 2018 Back pain M54.9 and Anxiety F41.9 [facility] [address] [id number] [address] [place] [address] Jan, Back pain M54.9 and Anxiety F41.9 [facility] [address] [id number] [address] [place] [address] Jan, [facility] [address] [id number] [address] [place] [address] Dec, [facility] [address] [id number] [address] [place] [address] Dec, Back pain M54.9 and Anxiety F41.9 [facility] [address] [id number] [address] [place] [address] Dec, Diabetes E11.9 ; Type 2 diab etes mellitus with diabetic peripheral angiopathy without gangrene E11.51 ; Lumbar radiculopathy, chronic M54.16 ; COPD (chronic obstructive pulmonary disease) J44.9 and Anxiety F41.9 [facility] [address] [id number] [address] [place] [address] Dec, Back pain M54.9 and Anxiety F41.9 [facility] [address] [id number] [address] [place] [address] Nov, Back pain M54.9 and Anxiety F41.9 [facility] [address] [id number] [address] [place] [address] Oct, [facility] [address] [id number] [address] [place] [address] Oct, Back pain M54.9 and Anxiety F41.9 [facility] [address] [id number] [address] [place] [address] September, Anxiety F41.9 and Back pain M54.9 [facility] [address] [id number] [address] [place] [address] September, Diabetes E11.9 ; Hypertensio n I10 ; COPD (chronic obstructive pulmonary disease) J44.9 and Lumbar radiculopathy, chronic M54.16 [facility] [address] [id number] [address] [place] [address] September, Anxiety F41.9 [facility] [address] [id number] [address] [place] [address] Aug, [facility] [address] [id number] [address] [place] [address] Aug, [facility] [address] [id number] [address] [place] [address] Aug, Anxiety F41.9 and Back pain M54.9 [facility] [address] [id number] [address] [place] [address] Aug, Medicare annual wellness vis it, initial [...] 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.4 [facility] [address] [id number] [address] [place] [address] Jul, Back pain M54.9 [facility] [address] [id number] [address] [place] [address] Jul, [facility] [address] [id number] [address] [place] [address] Jul, Anxiety F41.9 and Back pain M54.9 [facility] [address] [id number] [address] [place] [address] Jul, Diabetes E11.9 [facility] [address] [id number] [address] [place] [address] May, [facility] [address] [id number] [address] [place] [address] May, Diabetes E11.9 ; Anxiety F41 .9 ; Back pain M54.9 and COPD (chronic obstructive pulmonary disease) J44.9 [facility] [address] [id number] [address] [place] [address] May, Back pain M54.9 [facility] [address] [id number] [address] [place] [address] May, [facility] [address] [id number] [address] [place] [address] Apr, Back pain M54.9 [facility] [address] [id number] [address] [place] [address] Mar, Back pain M54.9 [facility] [address] [id number] [address] [place] [address] Mar, [facility] [address] [id number] [address] [place] [address] Mar, [facility] [address] [id number] [address] [place] [address] 14 Mar, 2017 Radiculopathy of lumbar rhiannon on M54.16 [facility] [address] [id number] [address] [place] [address] Mar, [facility] [address] [id number] [address] [place] [address] 07 Mar, 2017 Encounter for immunization Z 23 and Lumbar radiculopathy, chronic M54.16 [facility] [address] [id number] [address] [place] [address] Mar, Back pain M54.9 and Anxiety F41.9 [facility] [address] [id number] [address] [place] [address] Feb, Acute bilateral low back boy n with left-sided sciatica M54.42 and Acute bilateral low back pain with right-sided sciatica M54.41 [facility] [address] [id number] [address] [place] [address] Feb, [facility] [address] [id number] [address] [place] [address] Feb, Back pain M54.9 [facility] [address] [id number] [address] [place] [address] 05 Jan, 2017 Back pain M54.9 and Anxiety F41.9 [facility] [address] [id number] [address] [place] [address] 05 Jan, 2017 Diabetes E11.9 [facility] [address] [id number] [address] [place] [address] Dec, Diabetes E11.9 ; Back pain M 54.9 ; Anxiety F41.9 and Insulin long- term use Z79.4 [facility] [address] [id number] [address] [place] [address] Dec, Anxiety F41.9 [facility] [address] [id number] [address] [place] [address] Dec, Back pain M54.9 [facility] [address] [id number] [address] [place] [address] Nov, Back pain M54.9 [facility] [address] [id number] [address] [place] [address] Oct, Back pain M54.9 and Anxiety F41.9 [facility] [address] [id number] [address] [place] [address] September, Back pain M54.9 [facility] [address] [id number] [address] [place] [address] September, Back pain M54.9 and Anxiety F41.9 [facility] [address] [id number] [address] [place] [address] Aug, Diabetes E11.9 ; Anxiety F41 .9 ; Back pain M54.9 and PAD (peripheral artery disease) I73.9 [facility] [address] [id number] [address] [place] [address] Aug, Anxiety F41.9 [facility] [address] [id number] [address] [place] [address] Aug, Back pain M54.9 [facility] [address] [id number] [address] [place] [address] Jul, Back pain M54.9 [facility] [address] [id number] [address] [place] [address] Jul, Back pain M54.9 [facility] [address] [id number] [address] [place] [address] Jul, Back pain M54.9 [facility] [address] [id number] [address] [place] [address] 16 Jul, 2016 Dorsalgia M54.9 [facility] [address] [id number] [address] [place] [address] Jul, [facility] [address] [id number] [address] [place] [address] May, Back pain M54.9 [facility] [address] [id number] [address] [place] [address] May, Diabetes E11.9 ; Anxiety F41 .9 ; Port catheter in place Z95.828 ; Encounter for immunization Z23 and Insulin long-term use Z79.4 [facility] [address] [id number] [address] [place] [address] Apr, Back pain M54.9 [facility] [address] [id number] [address] [place] [address] Apr, Back pain M54.9 [facility] [address] [id number] [address] [place] [address] Apr, [facility] [address] [id number] [address] [place] [address] Apr, Back pain M54.9 [facility] [address] [id number] [address] [place] [address] Mar, COPD (chronic obstructive pu lmonary disease) J44.9 [facility] [address] [id number] [address] [place] [address] Feb, [facility] [address] [id number] [address] [place] [address] 30 Jan, 2016 [facility] [address] [id number] [address] [place] [address] 20 Jan, 2016 [facility] [address] [id number] [address] [place] [address] 07 Jan, 2016 [facility] [address] [id number] [address] [place] [address] 02 Jan, 2016 [facility] [address] [id number] [address] [place] [address] Dec, Diabetes E11.9 ; Hypoxia R09 .02 and Back pain M54.9 [facility] [address] [id number] [address] [place] [address] Dec, [facility] [address] [id number] [address] [place] [address] Nov, [facility] [address] [id number] [address] [place] [address] 15 Oct, 2015 Anxiety F41.9 [facility] [address] [id number] [address] [place] [address] Oct, Back pain M54.9 [facility] [address] [id number] [address] [place] [address] September, Back pain M54.9 [facility] [address] [id number] [address] [place] [address] September, Diabetes E11.9 [facility] [address] [id number] [address] [place] [address] September, [facility] [address] [id number] [address] [place] [address] September, Diabetes E11.9 ; Insulin sarai g-term use Z79.4 and Back pain M54.9 [facility] [address] [id number] [address] [place] [address] Aug, Back pain M54.9 [facility] [address] [facility] [id number] [address] [place] [address] Aug, Back pain M54.9 ; Anxiety F4 1.9 and Arthropathy, unspecified M12.9 [facility] [address] [facility] [id number] [address] [place] [address] Jul, Back pain M54.9 [facility] [address] [facility] [id number] [address] [place] [address] Jul, Anxiety F41.9 [facility] [address] [facility] [id number] [address] [place] [address] Jul, Back pain M54.9 [facility] [address] [facility] [id number] [address] [place] [address] Jul, [facility] [address] [place] [id number] [address] [place] [address] Jul, [facility] [address] [facility] [id number] [address] [place] [address] May, Back pain M54.9 ; Diabetes E 11.9 ; Insulin long-term use Z79.4 ; COPD (chronic obstructive pulmonary disease) J44.9 and Hypertension I10 [facility] [address] [id number] [address] [place] [address] May, Chronic pain G89.29 [facility] [address] [facility] [id number] [address] [place] [address] Apr, [facility] [address] [facility] [id number] [address] [place] [address] Apr, [facility] [address] [place] [address] [id number] [place] [address] Mar, [facility] [address] [facility] [id number] [address] [place] [address] Mar, Encounter for immunization Z 23 and Diabetes E11.9 [facility] [address] [id number] [address] [place] [address], [place] [address] Feb, [facility] [address] [id number] [address] [place] [address] Feb, [facility] [address] [id number] [address] [place] [address] Jan, [facility] [address] [id number] [address] [place] [address] Jan, [facility] [address] [id number] [address] [place] [address] Dec, [facility] [address] [id number] [address] [place] [address] Dec, [facility] [address] [id number] [address] [place] [address] Dec, Unspecified arthropathy, sit e unspecified 716.90 and Diabetes mellitus type 2, uncontrolled 250.02 [facility] [address] [id number] [address] [place] [address] Dec, [facility] [address] [id number] [address] [place] [address] Nov, [facility] [address] [id number] [address] [place] [address] Oct, [facility] [address] [id number] [address] [place] [address] September, [facility] [address] [id number] [address] [place] [address] September, [facility] [address] [id number] [address] [place] [address] September, [facility] [address] [id number] [address] [place] [address] September, [facility] [address] [id number] [address] [place] [address] Aug, [facility] [address] [id number] [facility] [place] [address] 13 Aug, 2014 [facility] [address] [id number] [address] [place] [address], [place] [address] 18 Jul, 2014 [facility] [address] [id number] [address] [place] [address], [place] [address] 18 Jul, 2014 [facility] [address] [id number] [address] [place] [address], [place] [address] 16 Jul, 2014 [facility] [address] [id number] [address] [place] [address], [place] [address] 16 Jul, 2014 [facility] [address] [id number] [address] [place] [address], [place] [address] 16 Jul, 2014 [facility] [address] [id number] [address] [place] [address], [place] [address] 16 Jul, 2014 [facility] [address] [id number] [address] [place] [address], [place] [address] 16 Jul, 2014 [facility] [address] [id number] [address] [place] [address], [place] [address] 16 Jul, 2014 [facility] [address] [id number] [address] [place] [address], [place] [address] 16 Jul, 2014 [facility] [address] [id number] [address] [place] [address], [place] [address] 13 Jul, 2014 [facility] [address] [id number] [address] [place] [address], [place] [address] 13 Jul, 2014 [facility] [address] [id number] [address] [place] [address], [place] [address] 09 Jul, 2014 [facility] [address] [id number] [address] [place] [address], [place] [address] 09 Jul, 2014 [facility] [address] [id number] [address] [place] [address], [place] [address] 17 Jul, 2014 [facility] [address] [id number] [address] [place] [address], [place] [address] 17 Jul, 2014 [facility] [address] [id number] [address] [place] [address], [place] [address] 16 Jul, 2014 [facility] [address] [id number] [address] [place] [address], [place] [address] 16 Jul, 2014 [facility] [address] [id number] [address] [place] [address], [place] [address] 16 Jul, 2014 [facility] [address] [id number] [address] [place] [address], [place] [address] 16 Jul, 2014 [facility] [address] [id number] [address] [place] [address], [place] [address] 16 Jul, 2014 [facility] [address] [id number] [address] [place] [address], [place] [address] 16 Jul, 2014 [facility] [address] [id number] [address] [place] [address], [place] [address] 16 Jul, 2014 [facility] [address] [id number] [address] [place] [address], [place] [address] 16 Jul, 2014 [facility] [address] [id number] [address] [place] [address], [place] [id number] 16 Jul, 2014 [facility] [address] [id number] [address] [place] [address], [place] [address] 16 Jul, 2014 [facility] [address] [id number] [address] [place] [address], [place] [address] 16 Jul, 2014 [facility] [address] [id number] [address] [place] [address], [place] [address] 16 Jul, 2014 [facility] [address] [id number] [address] [place] [address], [place] [address] 16 Jul, 2014 [facility] [address] [id number] [address] [place] [address], [place] [address] 16 Jul, 2014 [facility] [address] [id number] [address] [place] [address], [place] [address] May, [facility] [address] [id number] [address] [place] [address], [place] [address] May, [facility] [address] [id number] [address] [place] [address], [place] [address] May, [facility] [address] [id number] [address] [place] [address], [place] [address] May, [facility] [address] [id number] [address] [place] [address], [place] [address] May, [facility] [address] [id number] [address] [place] [address], [place] [address] May, [facility] [address] [id number] [address] [place] [address], [place] [address] May, [facility] [address] [id number] [address] [place] [address], [place] [address] May, [facility] [address] [id number] [address] [place] [address], [place] [address] May, [facility] [address] [id number] [address] [place] [address], [place] [address] May, [facility] [address] [id number] [address] [place] [address], [place] [address] Apr, [facility] [address] [id number] [address] [place] [address], [place] [address] Apr, [facility] [address] [id number] [address] [place] [address], [place] [address] Apr, [facility] [address] [id number] [address] [place] [address], [place] [address] Apr, [facility] [address] [id number] [address] [place] [address], [place] [address] Apr, [facility] [address] [id number] [address] [place] [address], [place] [address] Apr, [facility] [address] [id number] [address] [place] [address] Mar, [facility] [address] [id number] [address] [place] [address], [place] [address] Mar, [facility] [address] [id number] [address] [place] [address] Mar, [facility] [address] [id number] [address] [place] [address], [place] [address] Mar, [facility] [address] [id number] [address] [place] [address], [place] [address] Mar, [facility] [address] [id number] [address] [place] [address], [place] [address] Mar, [facility] [address] [id number] [address] [place] [address], [place] [address] Mar, [facility] [address] [id number] [address] [place] [address], [place] [address] Mar, [facility] [address] [id number] [address] [place] [address], [place] [address] Mar, [facility] [address] [id number] [address] [place] [address], [place] [address] Mar, [facility] [address] [id number] [address] [place] [address], [place] [address] Mar, [facility] [address] [id number] [address] [place] [address] Feb, [facility] [address] [id number] [address] [place] [address] 30 Feb, 2014 [facility] [address] [id number] [address] [place] [address], [place] [address] 15 Feb, 2014 [facility] [address] [id number] [address] [place] [id number] 15 Feb, 2014 [facility] [address] [id number] [address] [place] [address], [place] [address] 13 Feb, 2014 [facility] [address] [id number] [address] [place] [address], [place] [address] Feb, [facility] [address] [id number] [address] [place] [address], [place] [address] Feb, [facility] [address] [id number] [address] [place] [address], [place] [address] Feb, [facility] [address] [id number] [address] [place] [address], [place] [address] Feb, [facility] [address] [id number] [address] [place] [address], [place] [address] Feb, [facility] [address] [id number] [address] [place] [address], [place] [address] Jan, [facility] [address] [id number] [address] [place] [address], [place] [address] Jan, 2013 [facility] [address] [id number] [address] [place] [address], [place] [address] 16 Jan, 2013 [facility] [address] [id number] [address] [place] [address], [place] [address] 16 Jan, 2014 [facility] [address] [id number] [address] [place] [address], [place] [address] Jan, [facility] [address] [id number] [address] [place] [address], [place] [address] Jan, [facility] [address] [id number] [address] [place] [address], [place] [address] Jan, [facility] [address] [id number] [address] [place] [address], [place] [address] Dec, [facility] [address] [id number] [address] [place] [address], [place] [address] Dec, [facility] [address] [id number] [address] [place] [address], [place] [address] Dec, [facility] [address] [id number] [address] [place] [address], [place] [address] Dec, [facility] [address] [id number] [facility] [place] [address] Dec, [facility] [address] [id number] [address] [place] [address], [place] [address] Dec, [facility] [address] [id number] [address] [place] [address], [place] [address] Dec, [facility] [address] [id number] [address] [place] [address], [place] [address] Dec, [facility] [address] [id number] [address] [place] [address], [place] [address] Oct, [facility] [address] [id number] [address] [place] [address], [place] [address] Oct, [facility] [address] [id number] [address] [place] [address], [place] [address] September, [facility] [address] [id number] [address] [place] [address], [place] [address] September, [facility] [address] [id number] [address] [place] [address], [place] [address] September, [facility] [address] [id number] [address] [place] [address], [place] [address] September, [facility] [address] [id number] [address] [place] [address], [place] [address] September, [facility] [address] [id number] [address] [place] [address], [place] [address] September, [facility] [address] [id number] [address] [place] [address], [place] [address] September, [facility] [address] [id number] [address] [place] [address], [place] [address] Aug, [facility] [address] [id number] [address] [place] [address], [place] [address] Aug, [facility] [address] [id number] [address] [place] [address], [place] [address] Jul, [facility] [address] [id number] [address] [place] [address], [place] [address] Jul, [facility] [address] [id number] [address] [place] [address], [place] [address] Jul, [facility] [address] [id number] [address] [place] [address], [place] [address] Jul, [facility] [address] [id number] [address] [place] [address], [place] [address] Jul, [facility] [address] [id number] [address] [place] [address], [place] [address] Jul, [facility] [address] [id number] [address] [place] [address], [place] [address] Jul, [facility] [address] [id number] [address] [place] [address], [place] [address] Jul, [facility] [address] [id number] [address] [place] [address], [place] [address] May, [facility] [address] [id number] [address] [place] [address], [place] [address] May, [facility] [address] [id number] [address] [place] [address], [place] [address] May, [facility] [address] [id number] [address] [place] [address], [place] [address] May, [facility] [address] [id number] [address] [place] [address], [place] [address] Apr, [facility] [address] [id number] [address] [place] [address], [place] [address] Mar, [facility] [address] [id number] [address] [place] [address], [place] [address] Mar, [facility] [address] [id number] [address] [place] [address], [place] [address] Mar, [facility] [address] [id number] [address] [place] [address], [place] [address] Mar, [facility] [address] [id number] [address] [place] [address], [place] [address] Mar, [facility] [address] [id number] [address] [place] [address], [place] [address] Mar, [facility] [address] [id number] [address] [place] [address], [place] [address] Mar, [facility] [address] [id number] [address] [place] [address], [place] [address] Mar, [facility] [address] [id number] [address] [place] [address] Mar, [facility] [address] [id number] [address] [place] [address], [place] [address] Mar, [facility] [address] [id number] [address] [place] [address] Mar, [facility] [address] [id number] [address] [place] [address], [place] [address] Mar, [facility] [address] [id number] [address] [place] [address] 15 Feb, 2013 [facility] [address] [id number] [address] [place] [address] Feb, [facility] [address] [id number] [address] [place] [address] Feb, [facility] [address] [id number] [address] [place] [address] Feb, [facility] [address] [id number] [address] [place] [id number] 07 Feb, 2013 [facility] [address] [id number] [address] [place] [id number] 04 Jan, 2013 [facility] [address] [id number] [address] [place] [address], [place] [address] Dec, [facility] [address] [id number] [address] [place] [address], [place] [address] Dec, [facility] [address] [id number] [address] [place] [address], [place] [address] Dec, [facility] [address] [id number] [address] [place] [address], [place] [address] Nov, [facility] [address] [id number] [address] [place] [address], [place] [address] Nov, [facility] [address] [id number] [address] [place] [address], [place] [address] Nov, [facility] [address] [id number] [address] [place] [address], [place] [address] Oct, [facility] [address] [id number] [address] [place] [address], [place] [address] Oct, [facility] [address] [id number] [address] [place] [address], [place] [address] Oct, [facility] [address] [id number] [address] [place] [address], [place] [address] September, [facility] [address] [id number] [address] [place] [address], [place] [address] September, [facility] [address] [id number] [address] [place] [address], [place] [address] September, [facility] [address] [id number] [address] [place] [address], [place] [address] September, [facility] [address] [id number] [address] [place] [address], [place] [address] September, [facility] [address] [id number] [address] [place] [address], [place] [address] Aug, [facility] [address] [id number] [address] [place] [address], [place] [address] Aug, [facility] [address] [id number] [address] [place] [address], [place] [address] Aug, [facility] [address] [id number] [address] [place] [address], [place] [address] Jul, [facility] [address] [id number] [address] [place] [address], [place] [address] Jul, [facility] [address] [id number] [address] [place] [address], [place] [address] Jul, [facility] [address] [id number] [address] [place] [address], [place] [address] Jul, [facility] [address] [id number] [address] [place] [address], [place] [address] Jul, [facility] [address] [id number] [address] [place] [address], [place] [address] Jul, [facility] [address] [id number] [address] [place] [address], [place] [address] Jul, [facility] [address] [id number] [address] [place] [address], [place] [address] May, [facility] [address] [id number] [address] [place] [address], [place] [address] May, [facility] [address] [id number] [address] [place] [address], [place] [address] May, [facility] [address] [id number] [address] [place] [address], [place] [address] Apr, [facility] [address] [id number] [address] [place] [address], [place] [address] Apr, [facility] [address] [id number] [address] [place] [address], [place] [address] Apr, [facility] [address] [id number] [address] [place] [address], [place] [address] Apr, [facility] [address] [id number] [address] [place] [address], [place] [address] Apr, [facility] [address] [id number] [address] [place] [address], [place] [address] Mar, [facility] [address] [id number] [address] [place] [address], [place] [address] Mar, [facility] [address] [id number] [address] [place] [address], [place] [address] Mar, [facility] [address] [id number] [address] [place] [address], [place] [address] Mar, [facility] [address] [id number] [address] [place] [address], [place] [address] Feb, [facility] [address] [id number] [address] [place] [address], [place] [address] Feb, [facility] [address] [id number] [address] [place] [address], [place] [address] Feb, [facility] [address] [id number] [address] [place] [address], [place] [address] Feb, [facility] [address] [id number] [address] [place] [address], [place] [address] Feb, [facility] [address] [id number] [address] [place] [address], [place] [address] Jan, [facility] [address] [id number] [address] [place] [address], [place] [address] Dec, [facility] [address] [id number] [address] [place] [address], [place] [address] Dec, [facility] [address] [id number] [address] [place] [address], [place] [address] Dec, [facility] [address] [id number] [address] [place] [address], [place] [address] Nov, [facility] [address] [id number] [address] [place] [address], [place] [address] Nov, [facility] [address] [id number] [address] [place] [address], [place] [address] Nov, [facility] [address] [id number] [address] [place] [address], [place] [address] 29 Oct, 2011 [facility] [address] [id number] [address] [place] [address], [place] [address] Oct, [facility] [address] [id number] [address] [place] [address], [place] [address] Oct, [facility] [address] [id number] [address] [place] [address], [place] [address] Oct, [facility] [address] [id number] [address] [place] [address], [place] [address] September, [facility] [address] [id number] [address] [place] [address], [place] [address] September, [facility] [address] [id number] [address] [place] [address], [place] [address] 30 Aug, 2011 [facility] [address] [id number] [address] [place] [address], [place] [address] Aug, [facility] [address] [id number] [address] [place] [address], [place] [address] Aug, [facility] [address] [id number] [address] [place] [address], [place] [address] Aug, [facility] [address] [id number] [address] [place] [address], [place] [address] Aug, [facility] [address] [id number] [address] [place] [address], [place] [address] Aug, [facility] [address] [id number] [address] [place] [address], [place] [address] Aug, [facility] [address] [id number] [address] [place] [address], [place] [address] Jul, [facility] [address] [id number] [address] [place] [address], [place] [address] Jul, [facility] [address] [id number] [address] [place] [address] 14 Jul, 2011 [facility] [address] [id number] [address] [place] [address] May, [facility] [address] [id number] [address] [place] [address] May, [facility] [address] [id number] [address] [place] [address] May, [facility] [address] [id number] [address] [place] [address] Apr, [facility] [address] [id number] [address] [place] [address] Apr, [facility] [address] [id number] [address] [place] [address] Mar, [facility] [address] [id number] [address] [place] [address] Mar, [facility] [address] [id number] [address] [place] [address] Mar, [facility] [address] [id number] [address] [place] [address] Mar, [facility] [address] [id number] [address] [place] [address] Mar, [facility] [address] [id number] [address] [place] [address] Mar, [facility] [address] [id number] [address] [place] [address] Feb, [facility] [address] [id number] [address] [place] [address] Feb, [facility] [address] [id number] [address] [place] [address] Feb, IMMUNIZATIONS No Known Immunizations SOCIAL HISTORY Never Assessed REASON FOR VISIT EMR-[facility] PLAN OF CARE VITAL SIGNS MEDICATIONS Unknown [...]
--- OUTSIDE RECORDS SUMMARY | 2020-01-03 07:57 | XMS REPORT ---
Author Author Tra Landeros Doctor Organization [facility] Address Unknown Phone Unavailable Care Team Providers Care Cathode Builder Name Role Phone Migration, Doctor Unavailable Unavailable PROBLEMS Type Condition ICD9-CM Code [id number] Code Onset Dates Condition S tatus SNOMED Code Problem Insulin long-term use Z79.4 Active 201910338 Problem Hypertension I10 Active 9430068 3 Problem Diabetes E11.9 Active 10409949 Problem Hypoxia R09.02 Active 745815758 Problem Anxiety F41.9 Active 10230520 Problem Port catheter in place Z95.828 Active 265014133 Problem Pressure ulcer of other site, stage 3 L89.893 Active 768197829 Problem COPD (chronic obstructive pulmonary disease) J44.9 Active 60558750 Problem Type 2 diabetes mellitus wit h diabetic peripheral angiopathy without gangrene E11.51 Active 873363768 Problem Back pain M54.9 Active 338480523 Problem PAD (peripheral artery disease) I73.9 Active 539158860 Problem Lumbar radiculopathy, chronic M54.16 Active 175991684 Problem Recurrent major depressive disorder, in full remission F33.42 Active 445988155 Problem 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 Active 149871135 ALLERGIES No Information ENCOUNTERS Encounter Location Date Diagnosis [place] [id number] [facility] [id number] [address] [place] [phone] Aug, [facility] [address] [place] [id number] [address] [place] [id number] Aug, Pressure ulcer of other site , stage 3 L89.893 and COPD (chronic obstructive pulmonary disease) J44.9 [facility] [address] [facility] [id number] [address] [place] [id number] Aug, History of smoking Z87.891 [facility] [address] [facility] [id number] [address] [place] [phone] Jul, Type 2 diabetes mellitus wit h diabetic peripheral angiopathy without gangrene E11.51 [facility] [address] [id number] [address] [place] [id number] 25 Jul, 2018 Back pain M54.9 [facility] [address] [id number] [address] [place] [id number] 19 Jul, 2018 Anxiety F41.9 [facility] [address] [id number] [address] [place] [id number] 18 Jul, 2018 [facility] [address] [id number] [address] [place] [id number] 13 Jul, 2018 Back pain M54.9 [facility] [address] [id number] [address] [place] [id number] Jul, Back pain M54.9 [facility] [address] [id number] [address] [place] [phone] Jul, Lumbar radiculopathy, chroni c M54.16 ; Hypertension I10 and Type 2 diabetes mellitus with diabetic peripheral angiopathy without gangrene E11.51 [facility] [address] [id number] [address] [place] [id number] 25 Jul, 2018 Back pain M54.9 [facility] [address] [id number] [address] [place] [id number] Jul, Back pain M54.9 and Anxiety F41.9 [facility] [address] [id number] [address] [place] [phone] Jul, [facility] [address] [id number] [address] [place] [id number] May, Back pain M54.9 and Anxiety F41.9 [facility] [address] [id number] [address] [place] [address] May, [facility] [address] [id number] [address] [place] [address] Apr, Radiculopathy of lumbar rhiannon on M54.16 ; Back pain M54.9 and Anxiety F41.9 [facility] [address] [id number] [address] [place] [id number] Apr, Diabetes E11.9 ; Muscle spas m M62.838 and Lumbar radiculopathy, chronic M54.16 [facility] [address] [id number] [address] [place] [id number] Apr, [facility] [address] [id number] [address] [place] [id number] Apr, [facility] [address] [id number] [address] [place] [id number] Mar, Back pain M54.9 and Anxiety F41.9 [facility] [address] [id number] [address] [place] [id number] Mar, [facility] [address] [id number] [address] [place] [phone] Mar, [facility] [address] [id number] [address] [place] [id number] Mar, [facility] [address] [id number] [address] [place] [id number] Mar, Encounter for immunization Z 23 [facility] [address] [id number] [address] [place] [id number] Feb, Back pain M54.9 and Anxiety F41.9 [facility] [address] [id number] [address] [place] [id number] 04 Feb, 2018 Back pain M54.9 and Anxiety F41.9 [facility] [address] [id number] [address] [place] [phone] Jan, Back pain M54.9 and Anxiety F41.9 [facility] [address] [id number] [address] [place] [phone] Jan, [facility] [address] [id number] [address] [place] [id number] Dec, [facility] [address] [id number] [address] [place] [id number] Dec, Back pain M54.9 and Anxiety F41.9 [facility] [address] [id number] [address] [place] [address] Dec, Diabetes E11.9 ; Type 2 diab etes mellitus with diabetic peripheral angiopathy without gangrene E11.51 ; Lumbar radiculopathy, chronic M54.16 ; COPD (chronic obstructive pulmonary disease) J44.9 and Anxiety F41.9 [facility] [address] [id number] [address] [place] [id number] Dec, Back pain M54.9 and Anxiety F41.9 [facility] [address] [id number] [address] [place] [phone] Nov, Back pain M54.9 and Anxiety F41.9 [facility] [address] [id number] [address] [place] [phone] Oct, [facility] [address] [id number] [address] [place] [id number] Oct, Back pain M54.9 and Anxiety F41.9 [facility] [address] [id number] [address] [place] [phone] September, Anxiety F41.9 and Back pain M54.9 [facility] [address] [id number] [address] [place] [address] September, Diabetes E11.9 ; Hypertensio n I10 ; COPD (chronic obstructive pulmonary disease) J44.9 and Lumbar radiculopathy, chronic M54.16 [facility] [address] [id number] [address] [place] [phone] September, Anxiety F41.9 [facility] [address] [id number] [address] [place] [id number] Aug, [facility] [address] [id number] [address] [place] [id number] Aug, [facility] [address] [id number] [address] [place] [id number] Aug, Anxiety F41.9 and Back pain M54.9 [facility] [address] [id number] [address] [place] [phone] Aug, Medicare annual wellness vis it, initial [...] 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 [facility] [address] [id number] [address] [place] [id number] Jul, Back pain M54.9 [facility] [address] [id number] [address] [place] [id number] Jul, [facility] [address] [id number] [address] [place] [id number] Jul, Anxiety F41.9 and Back pain M54.9 [facility] [address] [id number] [address] [place] [id number] Jul, Diabetes E11.9 [facility] [address] [id number] [address] [place] [phone] May, [facility] [address] [id number] [address] [place] [id number] May, Diabetes E11.9 ; Anxiety F41 .9 ; Back pain M54.9 and COPD (chronic obstructive pulmonary disease) J44.9 [facility] [address] [id number] [address] [place] [phone] May, Back pain M54.9 [facility] [address] [id number] [address] [place] [id number] May, [facility] [address] [id number] [address] [place] [id number] Apr, Back pain M54.9 [facility] [address] [id number] [address] [place] [phone] Mar, Back pain M54.9 [facility] [address] [id number] [address] [place] [id number] Mar, [facility] [address] [id number] [address] [place] [id number] Mar, [facility] [address] [id number] [address] [place] [id number] 14 Mar, 2017 Radiculopathy of lumbar rhiannon on M54.16 [facility] [address] [id number] [address] [place] [id number] Mar, [facility] [address] [id number] [address] [place] [id number] 07 Mar, 2017 Encounter for immunization Z 23 and Lumbar radiculopathy, chronic M54.16 [facility] [address] [id number] [address] [place] [id number] Mar, Back pain M54.9 and Anxiety F41.9 [facility] [address] [id number] [address] [place] [id number] Feb, Acute bilateral low back boy n with left-sided sciatica M54.42 and Acute bilateral low back pain with right-sided sciatica M54.41 [facility] [address] [id number] [address] [place] [id number] Feb, [facility] [address] [id number] [address] [place] [id number] Feb, Back pain M54.9 [facility] [address] [id number] [address] [place] [phone] 05 Jan, 2017 Back pain M54.9 and Anxiety F41.9 [facility] [address] [id number] [address] [place] [id number] 05 Jan, 2017 Diabetes E11.9 [facility] [address] [id number] [address] [place] [id number] Dec, Diabetes E11.9 ; Back pain M 54.9 ; Anxiety F41.9 and Insulin long- term use Z79.4 [facility] [address] [id number] [address] [place] [id number] Dec, Anxiety F41.9 [facility] [address] [id number] [address] [place] [phone] Dec, Back pain M54.9 [facility] [address] [id number] [address] [place] [id number] Nov, Back pain M54.9 [facility] [address] [id number] [address] [place] [id number] Oct, Back pain M54.9 and Anxiety F41.9 [facility] [address] [id number] [address] [place] [phone] September, Back pain M54.9 [facility] [address] [id number] [address] [place] [phone] September, Back pain M54.9 and Anxiety F41.9 [facility] [address] [id number] [address] [place] [phone] Aug, Diabetes E11.9 ; Anxiety F41 .9 ; Back pain M54.9 and PAD (peripheral artery disease) I73.9 [facility] [address] [id number] [address] [place] [phone] Aug, Anxiety F41.9 [facility] [address] [id number] [address] [place] [id number] Aug, Back pain M54.9 [facility] [address] [id number] [address] [place] [id number] Jul, Back pain M54.9 [facility] [address] [id number] [address] [place] [id number] Jul, Back pain M54.9 [facility] [address] [id number] [address] [place] [id number] Jul, Back pain M54.9 [facility] [address] [id number] [address] [place] [id number] 16 Jul, 2016 Dorsalgia M54.9 [facility] [address] [id number] [address] [place] [id number] Jul, [facility] [address] [id number] [address] [place] [id number] May, Back pain M54.9 [facility] [address] [id number] [address] [place] [id number] May, Diabetes E11.9 ; Anxiety F41 .9 ; Port catheter in place Z95.828 ; Encounter for immunization Z23 and Insulin long-term use Z79.4 [facility] [address] [id number] [address] [place] [phone] Apr, Back pain M54.9 [facility] [address] [id number] [address] [place] [id number] Apr, Back pain M54.9 [facility] [address] [id number] [address] [place] [id number] Apr, [facility] [address] [id number] [address] [place] [id number] Apr, Back pain M54.9 [facility] [address] [id number] [address] [place] [phone] Mar, COPD (chronic obstructive pu lmonary disease) J44.9 [facility] [address] [id number] [address] [place] [id number] Feb, [facility] [address] [id number] [address] [place] [id number] 30 Jan, 2016 [facility] [address] [id number] [address] [place] [id number] 20 Jan, 2016 [facility] [address] [id number] [address] [place] [id number] 07 Jan, 2016 [facility] [address] [id number] [address] [place] [id number] 02 Jan, 2016 [facility] [address] [id number] [address] [place] [id number] Dec, Diabetes E11.9 ; Hypoxia R09 .02 and Back pain M54.9 [facility] [address] [id number] [address] [place] [address] Dec, [facility] [address] [id number] [address] [place] [phone] Nov, [facility] [address] [id number] [address] [place] [id number] 15 Oct, 2015 Anxiety F41.9 [facility] [address] [id number] [address] [place] [id number] Oct, Back pain M54.9 [facility] [address] [id number] [address] [place] [id number] September, Back pain M54.9 [facility] [address] [id number] [address] [place] [address] September, Diabetes E11.9 [facility] [address] [id number] [address] [place] [id number] September, [facility] [address] [id number] [address] [place] [id number] September, Diabetes E11.9 ; Insulin sarai g-term use Z79.4 and Back pain M54.9 [facility] [address] [id number] [address] [place] [phone] Aug, Back pain M54.9 [facility] [address] [facility] [id number] [address] [place] [id number] Aug, Back pain M54.9 ; Anxiety F4 1.9 and Arthropathy, unspecified M12.9 [facility] [address] [facility] [id number] [address] [place] [id number] Jul, Back pain M54.9 [facility] [address] [facility] [id number] [address] [place] [address] Jul, Anxiety F41.9 [facility] [address] [facility] [id number] [address] [place] [id number] Jul, Back pain M54.9 [facility] [address] [facility] [id number] [address] [place] [phone] Jul, [facility] [address] [place] [id number] [address] [place] [id number] Jul, [facility] [address] [facility] [id number] [address] [place] [id number] May, Back pain M54.9 ; Diabetes E 11.9 ; Insulin long-term use Z79.4 ; COPD (chronic obstructive pulmonary disease) J44.9 and Hypertension I10 [facility] [address] [place] [id number] [address] [place] [address] May, Chronic pain G89.29 [facility] [address] [facility] [id number] [address] [place] [id number] Apr, [facility] [address] [facility] [id number] [address] [place] [phone] Apr, [facility] [address] [place] [id number] [place] [phone] Mar, [facility] [address] [facility] [id number] [address] [place] [phone] Mar, Encounter for immunization Z 23 and Diabetes E11.9 [facility] [address] [id number] [address] [place] [address], [place] [address] Feb, [facility] [address] [id number] [address] [place] [id number] Feb, [facility] [address] [id number] [address] [place] [phone] Jan, [facility] [address] [id number] [address] [place] [address] Jan, [facility] [address] [id number] [address] [place] [id number] Dec, [facility] [address] [id number] [address] [place] [id number] Dec, [facility] [address] [id number] [address] [place] [address] Dec, Unspecified arthropathy, sit e unspecified 716.90 and Diabetes mellitus type 2, uncontrolled 250.02 [facility] [address] [id number] [address] [place] [id number] Dec, [facility] [address] [id number] [address] [place] [phone] Nov, [facility] [address] [id number] [address] [place] [id number] Oct, [facility] [address] [id number] [address] [place] [phone] September, [facility] [address] [id number] [address] [place] [id number] September, [facility] [address] [id number] [address] [place] [id number] September, [facility] [address] [id number] [address] [place] [id number] September, [facility] [address] [id number] [address] [place] [phone] Aug, [facility] [address] [id number] [facility] [place] [address] 13 Aug, 2014 [facility] [address] [id number] [address] [place] [address], [place] [address] 18 Jul, 2014 [facility] [address] [id number] [address] [place] [address], [place] [address] 18 Jul, 2014 [facility] [address] [id number] [address] [place] [address], [place] [address] 16 Jul, 2014 [facility] [address] [id number] [address] [place] [address], [place] [address] 16 Jul, 2014 [facility] [address] [id number] [address] [place] [address], [place] [address] 16 Jul, 2014 [facility] [address] [id number] [address] [place] [address], [place] [address] 16 Jul, 2014 [facility] [address] [id number] [address] [place] [address], [place] [address] 16 Jul, 2014 [facility] [address] [id number] [address] [place] [address], [place] [address] 16 Jul, 2014 [facility] [address] [id number] [address] [place] [address], [place] [address] 16 Jul, 2014 [facility] [address] [id number] [address] [place] [address], [place] [address] 13 Jul, 2014 [facility] [address] [id number] [address] [place] [address], [place] [address] 13 Jul, 2014 [facility] [address] [id number] [address] [place] [address], [place] [address] 09 Jul, 2014 [facility] [address] [id number] [address] [place] [address], [place] [address] 09 Jul, 2014 [facility] [address] [id number] [address] [place] [address], [place] [address] 17 Jul, 2014 [facility] [address] [id number] [address] [place] [address], [place] [address] 17 Jul, 2014 [facility] [address] [id number] [address] [place] [address], [place] [address] 16 Jul, 2014 [facility] [address] [id number] [address] [place] [address], [place] [address] 16 Jul, 2014 [facility] [address] [id number] [address] [place] [address], [place] [address] 16 Jul, 2014 [facility] [address] [id number] [address] [place] [address], [place] [address] 16 Jul, 2014 [facility] [address] [id number] [address] [place] [address], [place] [address] 16 Jul, 2014 [facility] [address] [id number] [address] [place] [address], [place] [address] 16 Jul, 2014 [facility] [address] [id number] [address] [place] [address], [place] [address] 16 Jul, 2014 [facility] [address] [id number] [address] [place] [address], [place] [address] 16 Jul, 2014 [facility] [address] [id number] [address] [place] [address], [place] [address] 16 Jul, 2014 [facility] [address] [id number] [address] [place] [address], [place] [address] 16 Jul, 2014 [facility] [address] [id number] [address] [place] [address], [place] [address] 16 Jul, 2014 [facility] [address] [id number] [address] [place] [address], [place] [address] 16 Jul, 2014 [facility] [address] [id number] [address] [place] [address], [place] [address] 16 Jul, 2014 [facility] [address] [id number] [address] [place] [address], [place] [address] 16 Jul, 2014 [facility] [address] [id number] [address] [place] [address], [place] [address] May, [facility] [address] [id number] [address] [place] [address], [place] [address] May, [facility] [address] [id number] [address] [place] [address], [place] [address] May, [facility] [address] [id number] [address] [place] [address], [place] [address] May, [facility] [address] [id number] [address] [place] [address], [place] [address] May, [facility] [address] [id number] [address] [place] [address], [place] [address] May, [facility] [address] [id number] [address] [place] [address], [place] [address] May, [facility] [address] [id number] [address] [place] [address], [place] [address] May, [facility] [address] [id number] [address] [place] [address], [place] [address] May, [facility] [address] [id number] [address] [place] [address], [place] [address] May, [facility] [address] [id number] [address] [place] [address], [place] [address] Apr, [facility] [address] [id number] [address] [place] [address], [place] [address] Apr, [facility] [address] [id number] [address] [place] [address], [place] [address] Apr, [facility] [address] [id number] [address] [place] [address], [place] [address] Apr, [facility] [address] [id number] [address] [place] [address], [place] [address] Apr, [facility] [address] [id number] [address] [place] [address], [place] [address] Apr, [facility] [address] [id number] [address] [place] [id number] Mar, [facility] [address] [id number] [address] [place] [address], [place] [address] Mar, [facility] [address] [id number] [address] [place] [address] Mar, [facility] [address] [id number] [address] [place] [address], [place] [address] Mar, [facility] [address] [id number] [address] [place] [address], [place] [address] Mar, [facility] [address] [id number] [address] [place] [address], [place] [address] Mar, [facility] [address] [id number] [address] [place] [address], [place] [address] Mar, [facility] [address] [id number] [address] [place] [address], [place] [address] Mar, [facility] [address] [id number] [address] [place] [address], [place] [address] Mar, [facility] [address] [id number] [address] [place] [address], [place] [address] Mar, [facility] [address] [id number] [address] [place] [address], [place] [address] Mar, [facility] [address] [id number] [address] [place] [address] Feb, [facility] [address] [id number] [address] [place] [id number] 30 Feb, 2014 [facility] [address] [id number] [address] [place] [address], [place] [address] 15 Feb, 2014 [facility] [address] [id number] [address] [place] [id number] 15 Feb, 2014 [facility] [address] [id number] [address] [place] [address], [place] [address] 13 Feb, 2014 [facility] [address] [id number] [address] [place] [address], [place] [address] Feb, [facility] [address] [id number] [address] [place] [address], [place] [address] Feb, [facility] [address] [id number] [address] [place] [address], [place] [address] Feb, [facility] [address] [id number] [address] [place] [address], [place] [address] Feb, [facility] [address] [id number] [address] [place] [address], [place] [address] Feb, [facility] [address] [id number] [address] [place] [address], [place] [address] Jan, [facility] [address] [id number] [address] [place] [address], [place] [address] Jan, 2013 [facility] [address] [id number] [address] [place] [address], [place] [address] 16 Jan, 2013 [facility] [address] [id number] [address] [place] [address], [place] [address] 16 Jan, 2014 [facility] [address] [id number] [address] [place] [address], [place] [address] Jan, [facility] [address] [id number] [address] [place] [address], [place] [address] Jan, [facility] [address] [id number] [address] [place] [address], [place] [address] Jan, [facility] [address] [id number] [address] [place] [address], [place] [address] Dec, [facility] [address] [id number] [address] [place] [address], [place] [address] Dec, [facility] [address] [id number] [address] [place] [address], [place] [address] Dec, [facility] [address] [id number] [address] [place] [address], [place] [address] Dec, [facility] [address] [id number] [facility] [place] [address] Dec, [facility] [address] [id number] [address] [place] [address], [place] [address] Dec, [facility] [address] [id number] [address] [place] [address], [place] [address] Dec, [facility] [address] [id number] [address] [place] [address], [place] [address] Dec, [facility] [address] [id number] [address] [place] [address], [place] [address] Oct, [facility] [address] [id number] [address] [place] [address], [place] [address] Oct, [facility] [address] [id number] [address] [place] [address], [place] [address] September, [facility] [address] [id number] [address] [place] [address], [place] [address] September, [facility] [address] [id number] [address] [place] [address], [place] [address] September, [facility] [address] [id number] [address] [place] [address], [place] [address] September, [facility] [address] [id number] [address] [place] [address], [place] [address] September, [facility] [address] [id number] [address] [place] [address], [place] [address] September, [facility] [address] [id number] [address] [place] [address], [place] [address] September, [facility] [address] [id number] [address] [place] [address], [place] [address] Aug, [facility] [address] [id number] [address] [place] [address], [place] [address] Aug, [facility] [address] [id number] [address] [place] [address], [place] [address] Jul, [facility] [address] [id number] [address] [place] [address], [place] [address] Jul, [facility] [address] [id number] [address] [place] [address], [place] [address] Jul, [facility] [address] [id number] [address] [place] [address], [place] [address] Jul, [facility] [address] [id number] [address] [place] [address], [place] [address] Jul, [facility] [address] [id number] [address] [place] [address], [place] [address] Jul, [facility] [address] [id number] [address] [place] [address], [place] [address] Jul, [facility] [address] [id number] [address] [place] [address], [place] [address] Jul, [facility] [address] [id number] [address] [place] [address], [place] [address] May, [facility] [address] [id number] [address] [place] [address], [place] [address] May, [facility] [address] [id number] [address] [place] [address], [place] [address] May, [facility] [address] [id number] [address] [place] [address], [place] [address] May, [facility] [address] [id number] [address] [place] [address], [place] [address] Apr, [facility] [address] [id number] [address] [place] [address], [place] [address] Mar, [facility] [address] [id number] [address] [place] [address], [place] [address] Mar, [facility] [address] [id number] [address] [place] [address], [place] [address] Mar, [facility] [address] [id number] [address] [place] [address], [place] [address] Mar, [facility] [address] [id number] [address] [place] [address], [place] [address] Mar, [facility] [address] [id number] [address] [place] [address], [place] [address] Mar, [facility] [address] [id number] [address] [place] [address], [place] [address] Mar, [facility] [address] [id number] [address] [place] [address], [place] [address] Mar, [facility] [address] [id number] [address] [place] [address] Mar, [facility] [address] [id number] [address] [place] [address], [place] [address] Mar, [facility] [address] [id number] [address] [place] [address] Mar, [facility] [address] [id number] [address] [place] [address], [place] [address] Mar, [facility] [address] [id number] [address] [place] [id number] 15 Feb, 2013 [facility] [address] [id number] [address] [place] [address] Feb, [facility] [address] [id number] [address] [place] [address] Feb, [facility] [address] [id number] [address] [place] [address] Feb, [facility] [address] [id number] [address] [place] [address] 07 Feb, 2013 [facility] [address] [id number] [address] [place] [id number] 04 Jan, 2013 [facility] [address] [id number] [address] [place] [address], [place] [address] Dec, [facility] [address] [id number] [address] [place] [address], [place] [address] Dec, [facility] [address] [id number] [address] [place] [address], [place] [address] Dec, [facility] [address] [id number] [address] [place] [address], [place] [address] Nov, [facility] [address] [id number] [address] [place] [address], [place] [address] Nov, [facility] [address] [id number] [address] [place] [address], [place] [address] Nov, [facility] [address] [id number] [address] [place] [address], [place] [address] Oct, [facility] [address] [id number] [address] [place] [address], [place] [address] Oct, [facility] [address] [id number] [address] [place] [address], [place] [address] Oct, [facility] [address] [id number] [address] [place] [address], [place] [address] September, [facility] [address] [id number] [address] [place] [address], [place] [address] September, [facility] [address] [id number] [address] [place] [address], [place] [address] September, [facility] [address] [id number] [address] [place] [address], [place] [address] September, [facility] [address] [id number] [address] [place] [address], [place] [address] September, [facility] [address] [id number] [address] [place] [address], [place] [address] Aug, [facility] [address] [id number] [address] [place] [address], [place] [address] Aug, [facility] [address] [id number] [address] [place] [address], [place] [address] Aug, [facility] [address] [id number] [address] [place] [address], [place] [address] Jul, [facility] [address] [id number] [address] [place] [address], [place] [address] Jul, [facility] [address] [id number] [address] [place] [address], [place] [address] Jul, [facility] [address] [id number] [address] [place] [address], [place] [address] Jul, [facility] [address] [id number] [address] [place] [address], [place] [address] Jul, [facility] [address] [id number] [address] [place] [address], [place] [address] Jul, [facility] [address] [id number] [address] [place] [address], [place] [address] Jul, [facility] [address] [id number] [address] [place] [address], [place] [address] May, [facility] [address] [id number] [address] [place] [address], [place] [address] May, [facility] [address] [id number] [address] [place] [address], [place] [address] May, [facility] [address] [id number] [address] [place] [address], [place] [address] Apr, [facility] [address] [id number] [address] [place] [address], [place] [address] Apr, [facility] [address] [id number] [address] [place] [address], [place] [address] Apr, [facility] [address] [id number] [address] [place] [address], [place] [address] Apr, [facility] [address] [id number] [address] [place] [address], [place] [address] Apr, [facility] [address] [id number] [address] [place] [address], [place] [address] Mar, [facility] [address] [id number] [address] [place] [address], [place] [address] Mar, [facility] [address] [id number] [address] [place] [address], [place] [address] Mar, [facility] [address] [id number] [address] [place] [address], [place] [address] Mar, [facility] [address] [id number] [address] [place] [address], [place] [address] Feb, [facility] [address] [id number] [address] [place] [address], [place] [address] Feb, [facility] [address] [id number] [address] [place] [address], [place] [address] Feb, [facility] [address] [id number] [address] [place] [address], [place] [address] Feb, [facility] [address] [id number] [address] [place] [address], [place] [address] Feb, [facility] [address] [id number] [address] [place] [address], [place] [address] Jan, [facility] [address] [id number] [address] [place] [address], [place] [address] Dec, [facility] [address] [id number] [address] [place] [address], [place] [address] Dec, [facility] [address] [id number] [address] [place] [address], [place] [address] Dec, [facility] [address] [id number] [address] [place] [address], [place] [address] Nov, [facility] [address] [id number] [address] [place] [address], [place] [address] Nov, [facility] [address] [id number] [address] [place] [address], [place] [address] Nov, [facility] [address] [id number] [address] [place] [address], [place] [address] 29 Oct, 2011 [facility] [address] [id number] [address] [place] [address], [place] [address] Oct, [facility] [address] [id number] [address] [place] [address], [place] [address] Oct, [facility] [address] [id number] [address] [place] [address], [place] [address] Oct, [facility] [address] [id number] [address] [place] [address], [place] [address] September, [facility] [address] [id number] [address] [place] [address], [place] [address] September, [facility] [address] [id number] [address] [place] [address], [place] [address] 30 Aug, 2011 [facility] [address] [id number] [address] [place] [address], [place] [address] Aug, [facility] [address] [id number] [address] [place] [address], [place] [address] Aug, [facility] [address] [id number] [address] [place] [address], [place] [address] Aug, [facility] [address] [id number] [address] [place] [address], [place] [address] Aug, [facility] [address] [id number] [address] [place] [address], [place] [address] Aug, [facility] [address] [id number] [address] [place] [address], [place] [address] Aug, [facility] [address] [id number] [address] [place] [address], [place] [address] Jul, [facility] [address] [id number] [address] [place] [address], [place] [address] Jul, [facility] [address] [id number] [address] [place] [id number] 14 Jul, 2011 [facility] [address] [id number] [address] [place] [address] May, [facility] [address] [id number] [address] [place] [address] May, [facility] [address] [id number] [address] [place] [address] May, [facility] [address] [id number] [address] [place] [address] Apr, [facility] [address] [id number] [address] [place] [id number] Apr, [facility] [address] [id number] [address] [place] [id number] Mar, [facility] [address] [id number] [address] [place] [address] Mar, [facility] [address] [id number] [address] [place] [address] Mar, [facility] [address] [id number] [address] [place] [address] Mar, [facility] [address] [id number] [address] [place] [address] Mar, [facility] [address] [id number] [address] [place] [address] Mar, [facility] [address] [id number] [address] [place] [id number] Feb, [facility] [address] [id number] [address] [place] [id number] Feb, [facility] [address] [id number] [address] [place] [id number] Feb, IMMUNIZATIONS No Known Immunizations SOCIAL HISTORY Never Assessed REASON FOR VISIT EMR-[facility] PLAN OF CARE VITAL SIGNS MEDICATIONS Unknown [...]
--- OUTSIDE RECORDS SUMMARY | 2020-01-03 07:58 | XMS REPORT ---
Author Author Tra Landeros Doctor Organization [facility] Address Unknown Phone Unavailable Care Team Providers Care Animal Physiology Teacher Name Role Phone Migration, Doctor Unavailable Unavailable PROBLEMS Type Condition ICD9-CM Code BTI13-MZ Code Onset Dates Condition S tatus SNOMED Code Problem Insulin long-term use Z79.4 Active 201263011 Problem Hypertension I10 Active 8338003 3 Problem Diabetes E11.9 Active 25276330 Problem Hypoxia R09.02 Active 743938444 Problem Anxiety F41.9 Active 58817177 Problem Port catheter in place Z95.828 Active 200814446 Problem Pressure ulcer of other site, stage 3 L89.893 Active 373067933 Problem COPD (chronic obstructive pulmonary disease) J44.9 Active 31782233 Problem Type 2 diabetes mellitus wit h diabetic peripheral angiopathy without gangrene E11.51 Active 417485492 Problem Back pain M54.9 Active 901743485 Problem PAD (peripheral artery disease) I73.9 Active 446676777 Problem Lumbar radiculopathy, chronic M54.16 Active 214408565 Problem Recurrent major depressive disorder, in full remission F33.42 Active 761952836 Problem retirement current use of insulin Z79.4 Active 661485475 ALLERGIES No Information ENCOUNTERS Encounter Location Date Diagnosis [place] [address] [facility] [id number] [address] [place] [address] Jul, Anxiety F41.9 [facility] [address] [facility] [id number] [address] [place] [address] 18 Jul, 2018 [place] [address] [facility] [id number] [address] [place] [address] 13 Jul, 2018 Back pain M54.9 [facility] [address] [facility] [id number] [address] [place] [address] Jul, Back pain M54.9 [place] [address] [facility] [id number] [address] [place] [address] Jul, Lumbar radiculopathy, chroni c M54.16 ; Hypertension I10 and Type 2 diabetes mellitus with diabetic peripheral angiopathy without gangrene E11.51 [facility] [address] [id number] [address] [place] [address] Jul, Back pain M54.9 [facility] [address] [id number] [address] [place] [address] Jul, Back pain M54.9 and Anxiety F41.9 [place] [address] [id number] [address] [place] [address] Jul, [facility] [address] [id number] [address] [place] [address] May, Back pain M54.9 and Anxiety F41.9 [place] [address] [facility] [id number] [address] [place] [address] May, [place] [address] [id number] [address] [place] [address] Apr, Radiculopathy of lumbar rhiannon on M54.16 ; Back pain M54.9 and Anxiety F41.9 [place] [address] [facility] [id number] [address] [place] [address] Apr, Diabetes E11.9 ; Muscle spas m M62.838 and Lumbar radiculopathy, chronic M54.16 [facility] [address] [id number] [address] [place] [address] Apr, [facility] [address] [id number] [address] [place] [address] Apr, [place] [address] [facility] [id number] [address] [place] [address] Mar, Back pain M54.9 and Anxiety F41.9 [place] [address] [facility] [id number] [address] [place] [address] Mar, [place] [address] [id number] [address] [place] [address] Mar, [facility] [address] [id number] [address] [place] [address] Mar, [facility] [address] [id number] [address] [place] [address] Mar, Encounter for immunization Z 23 [facility] [address] [id number] [address] [place] [address] 31 Feb, 2018 Back pain M54.9 and Anxiety F41.9 [facility] [address] [id number] [address] [place] [id number] 04 Feb, 2018 Back pain M54.9 and Anxiety F41.9 [facility] [address] [id number] [address] [place] [id number] 06 Jan, 2018 Back pain M54.9 and Anxiety F41.9 [facility] [address] [id number] [address] [place] [address] Jan, [facility] [address] [id number] [address] [place] [address] Dec, [facility] [address] [facility] [id number] [address] [place] [address] Dec, Back pain M54.9 and Anxiety F41.9 [facility] [address] [facility] [id number] [address] [place] [address] Dec, Diabetes E11.9 ; Type 2 diab etes mellitus with diabetic peripheral angiopathy without gangrene E11.51 ; Lumbar radiculopathy, chronic M54.16 ; COPD (chronic obstructive pulmonary disease) J44.9 and Anxiety F41.9 [facility] [address] [id number] [address] [place] [address] Dec, Back pain M54.9 and Anxiety F41.9 [facility] [address] [facility] [id number] [address] [place] [address] Nov, Back pain M54.9 and Anxiety F41.9 [facility] [address] [id number] [address] [place] [address] Oct, [facility] [address] [id number] [address] [place] [address] Oct, Back pain M54.9 and Anxiety F41.9 [facility] [address] [id number] [address] [place] [address] September, Anxiety F41.9 and Back pain M54.9 [facility] [address] [id number] [address] [place] [address] September, Diabetes E11.9 ; Hypertensio n I10 ; COPD (chronic obstructive pulmonary disease) J44.9 and Lumbar radiculopathy, chronic M54.16 [place] [address] [id number] [address] [place] [address] September, Anxiety F41.9 [place] [address] [id number] [address] [place] [address] Aug, [place] [address] [id number] [address] [place] [address] Aug, [facility] [address] [id number] [address] [place] [address] Aug, Anxiety F41.9 and Back pain M54.9 [place] [address] [id number] [address] [place] [address] Aug, Medicare annual wellness vis it, initial [...] and retirement current use of insulin Z79.4 [facility] [address] [id number] [address] [place] [address] Jul, Back pain M54.9 [facility] [address] [id number] [address] [place] [address] Jul, [facility] [address] [facility] [id number] [address] [place] [address] Jul, Anxiety F41.9 and Back pain M54.9 [facility] [address] [id number] [address] [place] [address] Jul, Diabetes E11.9 [facility] [address] [id number] [address] [place] [address] May, [facility] [address] [facility] [id number] [address] [place] [address] May, Diabetes E11.9 ; Anxiety F41 .9 ; Back pain M54.9 and COPD (chronic obstructive pulmonary disease) J44.9 [facility] [address] [id number] [address] [place] [address] May, Back pain M54.9 [facility] [address] [id number] [address] [place] [address] May, [facility] [address] [facility] [id number] [address] [place] [address] Apr, Back pain M54.9 [facility] [address] [facility] [id number] [address] [place] [address] Mar, Back pain M54.9 [facility] [address] [id number] [address] [place] [address] Mar, [facility] [address] [facility] [id number] [address] [place] [address] 16 Mar, 2017 [facility] [address] [facility] [id number] [address] [place] [address] 14 Mar, 2017 Radiculopathy of lumbar rhiannon on M54.16 [facility] [address] [id number] [address] [place] [id number] 13 Mar, 2017 [facility] [address] [id number] [address] [place] [address] 07 Mar, 2017 Encounter for immunization Z 23 and Lumbar radiculopathy, chronic M54.16 [facility] [address] [id number] [address] [place] [address] Mar, Back pain M54.9 and Anxiety F41.9 [facility] [address] [id number] [address] [place] [address] 10 Feb, 2017 Acute bilateral low back boy n with left-sided sciatica M54.42 and Acute bilateral low back pain with right-sided sciatica M54.41 [facility] [address] [facility] [id number] [address] [place] [address] Feb, [facility] [address] [facility] [id number] [address] [place] [address] Feb, Back pain M54.9 [facility] [address] [id number] [address] [place] [address] 05 Jan, 2017 Back pain M54.9 and Anxiety F41.9 [facility] [address] [facility] [id number] [address] [place] [address] 05 Jan, 2017 Diabetes E11.9 [facility] [address] [facility] [id number] [address] [place] [address] 14 Dec, 2016 Diabetes E11.9 ; Back pain M 54.9 ; Anxiety F41.9 and Insulin long- term use Z79.4 [facility] [address] [id number] [address] [place] [address] Dec, Anxiety F41.9 [facility] [address] [facility] [id number] [address] [place] [address] Dec, Back pain M54.9 [facility] [address] [facility] [id number] [address] [place] [address] Nov, Back pain M54.9 [facility] [address] [id number] [address] [place] [address] Oct, Back pain M54.9 and Anxiety F41.9 [facility] [address] [id number] [address] [place] [address] September, Back pain M54.9 [facility] [address] [id number] [address] [place] [address] September, Back pain M54.9 and Anxiety F41.9 [facility] [address] [id number] [address] [place] [address] Aug, Diabetes E11.9 ; Anxiety F41 .9 ; Back pain M54.9 and PAD (peripheral artery disease) I73.9 [facility] [address] [id number] [address] [place] [address] Aug, Anxiety F41.9 [facility] [address] [id number] [address] [place] [address] Aug, Back pain M54.9 [facility] [address] [id number] [address] [place] [id number] 23 Jul, 2016 Back pain M54.9 [facility] [address] [id number] [address] [place] [address] Jul, Back pain M54.9 [facility] [address] [id number] [address] [place] [id number] 23 Jul, 2016 Back pain M54.9 [facility] [address] [id number] [address] [place] [address] 16 Jul, 2016 Dorsalgia M54.9 [facility] [address] [id number] [address] [place] [id number] 14 Jul, 2016 [facility] [address] [id number] [address] [place] [address] May, Back pain M54.9 [facility] [address] [id number] [address] [place] [address] May, Diabetes E11.9 ; Anxiety F41 .9 ; Port catheter in place Z95.828 ; Encounter for immunization Z23 and Insulin long-term use Z79.4 [facility] [address] [id number] [address] [place] [address] Apr, Back pain M54.9 [facility] [address] [id number] [address] [place] [address] Apr, Back pain M54.9 [facility] [address] [id number] [address] [place] [address] Apr, [facility] [address] [id number] [address] [place] [address] Apr, Back pain M54.9 [facility] [address] [id number] [address] [place] [address] Mar, COPD (chronic obstructive pu lmonary disease) J44.9 [facility] [address] [id number] [address] [place] [address] Feb, [facility] [address] [id number] [address] [place] [address] Jan, [facility] [address] [id number] [address] [place] [id number] Jan, [facility] [address] [id number] [address] [place] [address] Jan, [facility] [address] [id number] [address] [place] [address] Jan, [facility] [address] [id number] [address] [place] [address] Dec, Diabetes E11.9 ; Hypoxia R09 .02 and Back pain M54.9 [facility] [address] [id number] [address] [place] [address] Dec, [facility] [address] [id number] [address] [place] [id number] 15 Nov, 2015 [facility] [address] [id number] [address] [place] [address] Oct, Anxiety F41.9 [facility] [address] [id number] [address] [place] [address] Oct, Back pain M54.9 [facility] [address] [id number] [address] [place] [address] September, Back pain M54.9 [facility] [address] [id number] [address] [place] [address] September, Diabetes E11.9 [facility] [address] [id number] [address] [place] [address] September, [facility] [address] [id number] [address] [place] [address] September, Diabetes E11.9 ; Insulin sarai g-term use Z79.4 and Back pain M54.9 [facility] [address] [id number] [address] [place] [address] Aug, Back pain M54.9 [facility] [address] [facility] [id number] [address] [place] [address] Aug, Back pain M54.9 ; Anxiety F4 1.9 and Arthropathy, unspecified M12.9 [facility] [address] [id number] [address] [place] [address] Jul, Back pain M54.9 [facility] [address] [id number] [address] [place] [address] Jul, Anxiety F41.9 [facility] [address] [id number] [address] [place] [address] Jul, Back pain M54.9 [facility] [address] [facility] [id number] [address] [place] [address] Jul, [facility] [address] [facility] [id number] [address] [place] [address] Jul, [facility] [address] [place] [id number] [address] [place] [address] May, Back pain M54.9 ; Diabetes E 11.9 ; Insulin long-term use Z79.4 ; COPD (chronic obstructive pulmonary disease) J44.9 and Hypertension I10 [facility] [address] [facility] [id number] [address] [place] [address] May, Chronic pain G89.29 [facility] [address] [place] [id number] [address] [place] [id number] Apr, [facility] [address] [place] [id number] [place] [address] Apr, [facility] [address] [place] [id number] [address] [place] [address] Mar, [facility] [address] [place] [id number] [address] [place] [address] Mar, Encounter for immunization Z 23 and Diabetes E11.9 [facility] [address] [place] [id number] [address] [place] [address] Feb, [facility] [address] [place] [id number] [address] [place] [address] Feb, [facility] [address] [place] [id number] [address] [place] [phone] Jan, [facility] [address] [facility] [id number] [address] [place] [address] Jan, [facility] [address] [place] [id number] [address] [place] [address] Dec, [facility] [address] [place] [id number] [address] [place] [address] Dec, [facility] [address] [place] [id number] [address] [place] [address] Dec, Unspecified arthropathy, sit e unspecified 716.90 and Diabetes mellitus type 2, uncontrolled 250.02 [facility] [address] [id number] [address] [place] [address] Dec, [facility] [address] [id number] [address] [place] [address] Nov, [facility] [address] [id number] [address] [place] [address] Oct, [facility] [address] [id number] [address] [place] [address] September, [facility] [address] [id number] [address] [place] [address], [place] [address] September, [facility] [address] [id number] [address] [place] [address], [place] [address] September, [facility] [address] [id number] [address] [place] [address], [place] [address] September, [facility] [address] [id number] [address] [place] [address] Aug, [facility] [address] [id number] [address] [place] [address], [place] [address] Aug, [facility] [address] [id number] [address] [place] [address] Jul, [facility] [address] [id number] [address] [place] [id number] 18 Jul, 2014 [facility] [address] [id number] [address] [place] [address] 16 Jul, 2014 [facility] [address] [id number] [address] [place] [address] Jul, [facility] [address] [id number] [address] [place] [address] 16 Jul, 2014 [facility] [address] [id number] [address] [place] [address] Jul, [facility] [address] [id number] [address] [place] [address], [place] [address] 16 Jul, 2014 [facility] [address] [id number] [address] [place] [address], [place] [address] 16 Jul, 2014 [facility] [address] [id number] [address] [place] [address], [place] [address] 16 Jul, 2014 [facility] [address] [id number] [address] [place] [address], [place] [address] 13 Jul, 2014 [facility] [address] [id number] [address] [place] [address], [place] [address] 13 Jul, 2014 [facility] [address] [id number] [address] [place] [address], [place] [address] 09 Jul, 2014 [facility] [address] [id number] [address] [place] [address], [place] [address] 09 Jul, 2014 [facility] [address] [id number] [address] [place] [address], [place] [address] 17 Jul, 2014 [facility] [address] [id number] [address] [place] [address], [place] [address] 17 Jul, 2014 [facility] [address] [id number] [address] [place] [address], [place] [address] 16 Jul, 2014 [facility] [address] [id number] [address] [place] [address], [place] [address] 16 Jul, 2014 [facility] [address] [id number] [address] [place] [address], [place] [address] 16 Jul, 2014 [facility] [address] [id number] [address] [place] [address], [place] [address] 16 Jul, 2014 [facility] [address] [id number] [address] [place] [address], [place] [address] 16 Jul, 2014 [facility] [address] [id number] [address] [place] [address], [place] [id number] 16 Jul, 2014 [facility] [address] [id number] [address] [place] [address], [place] [address] 16 Jul, 2014 [facility] [address] [id number] [address] [place] [address], [place] [id number] Jul, 2014 [facility] [address] [id number] [address] [place] [address], [place] [address] Jul, 2014 [facility] [address] [id number] [address] [place] [address], [place] [id number] Jul, 2014 [facility] [address] [id number] [address] [place] [address], [place] [address] Jul, 2014 [facility] [address] [id number] [address] [place] [address], [place] [address] Jul, 2014 [facility] [address] [id number] [address] [place] [address], [place] [address] Jul, 2014 [facility] [address] [id number] [address] [place] [address], [place] [address] Jul, [facility] [address] [id number] [address] [place] [address], [place] [address] May, [facility] [address] [id number] [address] [place] [address], [place] [address] May, [facility] [address] [id number] [address] [place] [address], [place] [address] May, [facility] [address] [id number] [address] [place] [address], [place] [address] May, [facility] [address] [id number] [address] [place] [address], [place] [address] May, [facility] [address] [id number] [address] [place] [address], [place] [address] May, [facility] [address] [id number] [address] [place] [address], [place] [address] May, [facility] [address] [id number] [address] [place] [address], [place] [id number] May, [facility] [address] [id number] [address] [place] [address], [place] [address] May, [facility] [address] [id number] [address] [place] [address], [place] [address] May, [facility] [address] [id number] [address] [place] [address], [place] [address] Apr, [facility] [address] [id number] [address] [place] [address], [place] [address] Apr, [facility] [address] [id number] [address] [place] [address], [place] [address] Apr, [facility] [address] [id number] [address] [place] [address], [place] [address] Apr, [facility] [address] [id number] [address] [place] [address], [place] [address] Apr, [facility] [address] [id number] [address] [place] [address], [place] [address] Apr, [facility] [address] [id number] [address] [place] [address], [place] [address] Mar, [facility] [address] [id number] [address] [place] [address], [place] [address] Mar, [facility] [address] [id number] [address] [place] [address], [place] [address] Mar, [facility] [address] [id number] [address] [place] [address], [place] [address] Mar, [facility] [address] [id number] [address] [place] [address], [place] [address] Mar, [facility] [address] [id number] [address] [place] [address], [place] [address] Mar, [facility] [address] [id number] [address] [place] [address], [place] [address] Mar, [facility] [address] [id number] [address] [place] [address], [place] [address] 17 Mar, 2014 [facility] [address] [id number] [address] [place] [address], [place] [address] 14 Mar, 2014 [facility] [address] [id number] [address] [place] [address], [place] [address] Mar, [facility] [address] [id number] [address] [place] [address], [place] [address] Mar, [facility] [address] [id number] [address] [place] [address], [place] [address] Feb, [facility] [address] [id number] [address] [place] [address], [place] [address] Feb, [facility] [address] [id number] [address] [place] [address], [place] [address] Feb, [facility] [address] [id number] [address] [place] [address], [place] [address] Feb, [facility] [address] [id number] [address] [place] [address], [place] [address] Feb, [facility] [address] [id number] [address] [place] [address], [place] [address] Feb, [facility] [address] [id number] [address] [place] [address], [place] [address] Feb, [facility] [address] [id number] [address] [place] [address], [place] [address] Feb, [facility] [address] [id number] [address] [place] [address], [place] [address] Feb, [facility] [address] [id number] [address] [place] [address], [place] [address] Feb, [facility] [address] [id number] [address] [place] [address], [place] [address] Jan, [facility] [address] [id number] [address] [place] [address], [place] [address] Jan, [facility] [address] [id number] [address] [place] [address], [place] [address] 16 Jan, 2013 [facility] [address] [id number] [address] [place] [address], [place] [address] 16 Jan, 2014 [facility] [address] [id number] [address] [place] [address], [place] [address] 12 Jan, 2014 [facility] [address] [id number] [address] [place] [address], [place] [address] Jan, [facility] [address] [id number] [address] [place] [address], [place] [address] Jan, [facility] [address] [id number] [address] [place] [address], [place] [address] Dec, [facility] [address] [id number] [address] [place] [address], [place] [address] Dec, [facility] [address] [id number] [address] [place] [address], [place] [address] Dec, [facility] [address] [id number] [address] [place] [address], [place] [address] Dec, [facility] [address] [id number] [address] [place] [address], [place] [address] Dec, [facility] [address] [id number] [address] [place] [address], [place] [address] Dec, [facility] [address] [id number] [address] [place] [address], [place] [address] Dec, [facility] [address] [id number] [address] [place] [address], [place] [address] Dec, [facility] [address] [id number] [address] [place] [address], [place] [address] Oct, [facility] [address] [id number] [address] [place] [address], [place] [address] Oct, [facility] [address] [id number] [address] [place] [address], [place] [address] September, [facility] [address] [id number] [address] [place] [address], [place] [address] September, [facility] [address] [id number] [address] [place] [address], [place] [address] September, [facility] [address] [id number] [address] [place] [address], [place] [address] September, [facility] [address] [id number] [address] [place] [address], [place] [address] September, [facility] [address] [id number] [address] [place] [address], [place] [address] September, [facility] [address] [id number] [address] [place] [address], [place] [address] September, [facility] [address] [id number] [address] [place] [address], [place] [address] Aug, [facility] [address] [id number] [address] [place] [address], [place] [address] Aug, [facility] [address] [id number] [address] [place] [address], [place] [address] Jul, [facility] [address] [id number] [address] [place] [address], [place] [address] Jul, [facility] [address] [id number] [address] [place] [address], [place] [address] Jul, [facility] [address] [id number] [address] [place] [address], [place] [address] Jul, [facility] [address] [id number] [address] [place] [address], [place] [address] Jul, [facility] [address] [id number] [address] [place] [address], [place] [address] Jul, [facility] [address] [id number] [address] [place] [address], [place] [address] Jul, [facility] [place] [address] [id number] [address] [place] [address], [place] [address] Jul, [facility] [address] [id number] [address] [place] [address], [place] [address] May, [facility] [address] [id number] [address] [place] [address], [place] [address] 15 May, 2013 [facility] [address] [id number] [address] [place] [address], [place] [address] May, [facility] [address] [id number] [address] [place] [address], [place] [address] May, [facility] [address] [id number] [address] [place] [address], [place] [address] Apr, [facility] [address] [id number] [address] [place] [address], [place] [address] Mar, [facility] [place] [address] [id number] [address] [place] [address], [place] [address] Mar, [facility] [place] [address] [id number] [address] [place] [address], [place] [address] Mar, [facility] [place] [address] [id number] [address] [place] [address], [place] [address] Mar, [facility] [address] [id number] [address] [place] [address], [place] [address] 18 Mar, 2013 [facility] [address] [id number] [address] [place] [address] 18 Mar, 2013 [facility] [address] [id number] [address] [place] [address], [place] [address] 18 Mar, 2013 [facility] [address] [id number] [address] [place] [address], [place] [address] 18 Mar, 2013 [facility] [address] [id number] [address] [place] [address], [place] [address] 11 Mar, 2013 [facility] [address] [id number] [address] [place] [id number] Mar, [facility] [address] [id number] [address] [place] [address], [place] [address] Mar, [facility] [address] [id number] [address] [place] [address], [place] [address] Mar, [facility] [address] [id number] [address] [place] [address], [place] [address] Feb, [facility] [address] [id number] [address] [place] [address], [place] [address] Feb, [facility] [address] [id number] [address] [place] [address], [place] [address] Feb, [facility] [address] [id number] [address] [place] [address], [place] [address] Feb, [facility] [address] [id number] [address] [place] [address], [place] [address] Feb, [facility] [address] [id number] [address] [place] [address], [place] [address] Jan, [facility] [address] [id number] [address] [place] [address], [place] [address] Dec, [facility] [address] [id number] [address] [place] [address], [place] [address] Dec, [facility] [address] [id number] [address] [place] [address], [place] [address] Dec, [facility] [address] [id number] [address] [place] [address], [place] [address] Nov, [facility] [address] [id number] [address] [place] [address], [place] [address] Nov, [facility] [address] [id number] [address] [place] [address], [place] [address] Nov, [facility] [address] [id number] [address] [place] [address], [place] [address] Oct, [facility] [address] [id number] [address] [place] [address], [place] [address] Oct, [facility] [address] [id number] [address] [place] [address], [place] [address] Oct, [facility] [address] [id number] [address] [place] [address], [place] [address] September, [facility] [address] [id number] [address] [place] [address], [place] [address] September, [facility] [place] [address] [id number] [address] [place] [address], [place] [address] September, [facility] [address] [id number] [address] [place] [address], [place] [address] September, [facility] [address] [id number] [address] [place] [address], [place] [address] September, [facility] [address] [id number] [address] [place] [address], [place] [address] Aug, [facility] [address] [id number] [address] [place] [address], [place] [address] Aug, [facility] [address] [id number] [address] [place] [address], [place] [address] Aug, [facility] [place] [address] [id number] [address] [place] [address], [place] [address] Jul, [facility] [address] [id number] [address] [place] [address], [place] [address] Jul, [facility] [address] [id number] [address] [place] [address], [place] [address] Jul, [facility] [address] [id number] [address] [place] [address], [place] [address] Jul, [facility] [address] [id number] [address] [place] [address], [place] [address] Jul, [facility] [address] [id number] [address] [place] [address], [place] [address] Jul, [facility] [address] [id number] [address] [place] [address], [place] [address] Jul, [facility] [address] [id number] [address] [place] [address], [place] [address] May, [facility] [address] [id number] [address] [place] [address], [place] [address] May, [facility] [address] [id number] [address] [place] [address], [place] [address] May, [facility] [address] [id number] [address] [place] [address], [place] [address] Apr, [facility] [address] [id number] [address] [place] [address], [place] [address] Apr, [facility] [address] [id number] [address] [place] [address], [place] [address] Apr, [facility] [address] [id number] [address] [place] [address], [place] [address] Apr, [facility] [address] [id number] [address] [place] [address], [place] [address] Apr, [facility] [address] [id number] [address] [place] [address], [place] [address] Mar, [facility] [address] [id number] [address] [place] [address], [place] [address] Mar, [facility] [address] [id number] [address] [place] [address] Mar, [facility] [address] [id number] [address] [place] [address], [place] [address] Mar, [facility] [address] [id number] [address] [place] [address], [place] [address] Feb, [facility] [address] [id number] [address] [place] [address], [place] [address] Feb, [facility] [address] [id number] [address] [place] [address], [place] [address] Feb, [facility] [address] [id number] [address] [place] [address], [place] [address] Feb, [facility] [address] [id number] [address] [place] [address], [place] [address] Feb, [facility] [address] [id number] [address] [place] [address], [place] [address] Jan, [facility] [address] [id number] [address] [place] [address], [place] [address] Dec, [facility] [address] [id number] [address] [place] [address], [place] [address] Dec, [facility] [address] [id number] [address] [place] [address], [place] [address] Dec, [facility] [address] [id number] [address] [place] [address], [place] [address] Nov, [facility] [address] [id number] [address] [place] [address], [place] [address] Nov, [facility] [address] [id number] [address] [place] [address], [place] [address] Nov, [facility] [address] [id number] [address] [place] [address], [place] [address] Oct, [facility] [address] [id number] [address] [place] [address], [place] [address] Oct, [facility] [address] [id number] [address] [place] [address], [place] [address] Oct, [facility] [address] [id number] [address] [place] [address], [place] [address] Oct, [facility] [address] [id number] [address] [place] [address], [place] [address] September, [facility] [address] [id number] [address] [place] [address], [place] [address] September, [facility] [address] [id number] [address] [place] [address], [place] [address] Aug, [facility] [address] [id number] [address] [place] [address], [place] [address] Aug, [facility] [address] [id number] [address] [place] [address], [place] [address] Aug, [facility] [address] [id number] [address] [place] [address], [place] [address] Aug, [facility] [address] [id number] [address] [place] [address], [place] [address] Aug, [facility] [address] [id number] [address] [place] [address], [place] [address] Aug, [facility] [address] [id number] [address] [place] [address], [place] [address] Aug, [facility] [address] [id number] [address] [place] [address], [place] [address] Jul, [facility] [address] [id number] [address] [place] [address], [place] [address] Jul, [facility] [address] [id number] [address] [place] [address], [place] [address] Jul, [facility] [address] [id number] [address] [place] [address], [place] [address] May, [facility] [place] [address] [id number] [address] [place] [address], [place] [address] May, [facility] [address] [id number] [address] [place] [address], [place] [address] May, [facility] [address] [id number] [address] [place] [address], [place] [id number] Apr, [facility] [address] [id number] [address] [place] [address], [place] [phone] Apr, [facility] [address] [id number] [address] [place] [id number] Mar, [facility] [address] [id number] [address] [place] [phone] Mar, [facility] [address] [id number] [address] [place] [id number] Mar, [facility] [address] [id number] [address] [place] [id number] Mar, [facility] [address] [id number] [address] [place] [id number] Mar, [facility] [address] [id number] [address] [place] [id number] Mar, [facility] [address] [id number] [address] [place] [phone] Feb, [facility] [address] [id number] [address] [place] [phone] Feb, [facility] [address] [id number] [address] [place] [phone] Feb, IMMUNIZATIONS No Known Immunizations SOCIAL HISTORY Never Assessed REASON FOR VISIT [facility]MR[place] [place] CARE VITAL SIGNS MEDICATIONS Unknown [...]
--- OUTSIDE RECORDS SUMMARY | 2020-01-03 07:58 | XMS REPORT ---
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 Name Role Phone Migration, Doctor Unavailable Unavailable PROBLEMS Type Condition ICD9-CM Code SHU35-FZ Code Onset Dates Condition S tatus SNOMED Code Problem Insulin long-term use Z79.4 Active 913672294 Problem Hypertension I10 Active 8408909 3 Problem Diabetes E11.9 Active 32328047 Problem Hypoxia R09.02 Active 468020988 Problem Anxiety F41.9 Active 56305061 Problem Port catheter in place Z95.828 Active 991281051 Problem Pressure ulcer of other site, stage 3 L89.893 Active 684116426 Problem COPD (chronic obstructive pulmonary disease) J44.9 Active 70029719 Problem Type 2 diabetes mellitus wit h diabetic peripheral angiopathy without gangrene E11.51 Active 993876364 Problem Back pain M54.9 Active 161652157 Problem PAD (peripheral artery disease) I73.9 Active 820968298 Problem Lumbar radiculopathy, chronic M54.16 Active 574504937 Problem Recurrent major depressive disorder, in full remission F33.42 Active 017367591 Problem assisted current use of insulin Z79.4 Active 114883657 ALLERGIES No Information ENCOUNTERS Encounter Location Date Diagnosis [facility] [address] [facility] [id number] [address] [place] [id number] Aug, [facility] [address] [facility] [id number] [address] [place] [id number] Aug, [facility] [address] [facility] [id number] [address] [place] [id number] Jul, Type 2 diabetes mellitus wit h diabetic peripheral angiopathy without gangrene E11.51 [facility] [address] [facility] [id number] [address] [place] [id number] Jul, Back pain M54.9 [facility] [address] [id number] [address] [place] [id number] 19 Jul, 2018 Anxiety F41.9 [facility] [address] [id number] [address] [place] [id number] 18 Jul, 2018 [facility] [address] [id number] [address] [place] [id number] 13 Jul, 2018 Back pain M54.9 [facility] [address] [id number] [address] [place] [id number] 12 Jul, 2018 Back pain M54.9 [facility] [address] [id number] [address] [place] [id number] 11 Jul, 2018 Lumbar radiculopathy, chroni c M54.16 ; Hypertension I10 and Type 2 diabetes mellitus with diabetic peripheral angiopathy without gangrene E11.51 [facility] [address] [id number] [address] [place] [address] Jul, Back pain M54.9 [facility] [address] [id number] [address] [place] [id number] Jul, Back pain M54.9 and Anxiety F41.9 [facility] [address] [id number] [address] [place] [id number] Jul, [facility] [address] [id number] [address] [place] [id number] May, Back pain M54.9 and Anxiety F41.9 [facility] [address] [id number] [address] [place] [id number] May, [facility] [address] [id number] [address] [place] [id number] Apr, Radiculopathy of lumbar rhiannon on M54.16 ; Back pain M54.9 and Anxiety F41.9 [facility] [address] [id number] [address] [place] [address] Apr, Diabetes E11.9 ; Muscle spas m M62.838 and Lumbar radiculopathy, chronic M54.16 [facility] [address] [id number] [address] [place] [id number] Apr, [facility] [address] [id number] [address] [place] [id number] Apr, [facility] [address] [id number] [address] [place] [id number] Mar, Back pain M54.9 and Anxiety F41.9 [facility] [address] [id number] [address] [place] [id number] Mar, [facility] [address] [id number] [address] [place] [id number] Mar, [facility] [address] [id number] [address] [place] [id number] Mar, [facility] [address] [id number] [address] [place] [id number] Mar, Encounter for immunization Z 23 [facility] [address] [id number] [address] [place] [address] Feb, Back pain M54.9 and Anxiety F41.9 [facility] [address] [id number] [address] [place] [id number] 04 Feb, 2018 Back pain M54.9 and Anxiety F41.9 [facility] [address] [id number] [address] [place] [id number] Jan, Back pain M54.9 and Anxiety F41.9 [facility] [address] [id number] [address] [place] [id number] Jan, [facility] [address] [id number] [address] [place] [id number] Dec, [facility] [address] [id number] [address] [place] [address] Dec, Back pain M54.9 and Anxiety F41.9 [facility] [address] [id number] [address] [place] [id number] 13 Dec, 2017 Diabetes E11.9 ; Type 2 diab etes mellitus with diabetic peripheral angiopathy without gangrene E11.51 ; Lumbar radiculopathy, chronic M54.16 ; COPD (chronic obstructive pulmonary disease) J44.9 and Anxiety F41.9 [facility] [address] [id number] [address] [place] [address] Dec, Back pain M54.9 and Anxiety F41.9 [facility] [address] [id number] [address] [place] [address] Nov, Back pain M54.9 and Anxiety F41.9 [facility] [address] [id number] [address] [place] [address] Oct, [facility] [address] [id number] [address] [place] [address] Oct, Back pain M54.9 and Anxiety F41.9 [facility] [address] [id number] [address] [place] [address] September, Anxiety F41.9 and Back pain M54.9 [facility] [address] [id number] [address] [place] [address] September, Diabetes E11.9 ; Hypertensio n I10 ; COPD (chronic obstructive pulmonary disease) J44.9 and Lumbar radiculopathy, chronic M54.16 [facility] [address] [id number] [address] [place] [address] September, Anxiety F41.9 [facility] [address] [id number] [address] [place] [address] Aug, [facility] [address] [id number] [address] [place] [address] Aug, [facility] [address] [id number] [address] [place] [address] Aug, Anxiety F41.9 and Back pain M54.9 [facility] [address] [id number] [address] [place] [address] 12 Aug, 2017 Medicare annual wellness vis it, initial Z00.00 ; COPD (chronic obstructive pulmonary disease) J44.9 ; PAD (peripheral artery disease) I73.9 ; Insulin long-term use Z79.4 ; Hypertension I10 ; Anxiety F41.9 ; Recurrent major depressive disorder, in full remission F33.42 ; Pressure ulcer of other site, stage 3 L89.893 ; Type 2 diabetes mellitus with diabetic peripheral angiopathy without gangrene E11.51 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 [facility] [address] [id number] [address] [place] [address] Jul, Back pain M54.9 [facility] [address] [id number] [address] [place] [address] Jul, [facility] [address] [id number] [address] [place] [id number] Jul, Anxiety F41.9 and Back pain M54.9 [facility] [address] [id number] [address] [place] [address] Jul, Diabetes E11.9 [facility] [address] [id number] [address] [place] [id number] May, [facility] [address] [id number] [address] [place] [address] May, Diabetes E11.9 ; Anxiety F41 .9 ; Back pain M54.9 and COPD (chronic obstructive pulmonary disease) J44.9 [facility] [address] [id number] [address] [place] [id number] May, Back pain M54.9 [facility] [address] [id number] [address] [place] [id number] May, [facility] [address] [id number] [address] [place] [address] Apr, Back pain M54.9 [facility] [address] [id number] [address] [place] [address] 30 Mar, 2017 Back pain M54.9 [facility] [address] [id number] [address] [place] [id number] 20 Mar, 2017 [facility] [address] [id number] [address] [place] [address] 16 Mar, 2017 [facility] [address] [id number] [address] [place] [id number] 14 Mar, 2017 Radiculopathy of lumbar rhiannon on M54.16 [facility] [address] [id number] [address] [place] [id number] 13 Mar, 2017 [facility] [address] [facility] [id number] [address] [place] [id number] 07 Mar, 2017 Encounter for immunization Z 23 and Lumbar radiculopathy, chronic M54.16 [facility] [address] [id number] [address] [place] [id number] Mar, Back pain M54.9 and Anxiety F41.9 [facility] [address] [id number] [address] [place] [id number] 10 Feb, 2017 Acute bilateral low back boy n with left-sided sciatica M54.42 and Acute bilateral low back pain with right-sided sciatica M54.41 [facility] [address] [id number] [address] [place] [id number] Feb, [facility] [address] [id number] [address] [place] [address] Feb, Back pain M54.9 [facility] [address] [id number] [address] [place] [id number] 05 Jan, 2017 Back pain M54.9 and Anxiety F41.9 [facility] [address] [id number] [address] [place] [id number] 05 Jan, 2017 Diabetes E11.9 [facility] [address] [id number] [address] [place] [id number] Dec, Diabetes E11.9 ; Back pain M 54.9 ; Anxiety F41.9 and Insulin long- term use Z79.4 [facility] [address] [id number] [address] [place] [id number] Dec, Anxiety F41.9 [facility] [address] [id number] [address] [place] [id number] Dec, Back pain M54.9 [facility] [address] [id number] [address] [place] [id number] Nov, Back pain M54.9 [facility] [address] [id number] [address] [place] [id number] Oct, Back pain M54.9 and Anxiety F41.9 [facility] [address] [facility] [id number] [address] [place] [address] September, Back pain M54.9 [facility] [address] [id number] [address] [place] [id number] September, Back pain M54.9 and Anxiety F41.9 [facility] [address] [facility] [id number] [address] [place] [id number] Aug, Diabetes E11.9 ; Anxiety F41 .9 ; Back pain M54.9 and PAD (peripheral artery disease) I73.9 [facility] [address] [id number] [address] [place] [address] Aug, Anxiety F41.9 [facility] [address] [id number] [address] [place] [address] Aug, Back pain M54.9 [facility] [address] [facility] [id number] [address] [place] [id number] 23 Jul, 2016 Back pain M54.9 [facility] [address] [id number] [address] [place] [address] Jul, Back pain M54.9 [facility] [address] [id number] [address] [place] [id number] 23 Jul, 2016 Back pain M54.9 [facility] [address] [id number] [address] [place] [id number] 16 Jul, 2016 Dorsalgia M54.9 [facility] [address] [id number] [address] [place] [id number] 14 Jul, 2016 [facility] [address] [id number] [address] [place] [id number] May, Back pain M54.9 [facility] [address] [id number] [address] [place] [address] May, Diabetes E11.9 ; Anxiety F41 .9 ; Port catheter in place Z95.828 ; Encounter for immunization Z23 and Insulin long-term use Z79.4 [facility] [address] [id number] [address] [place] [id number] Apr, Back pain M54.9 [facility] [address] [id number] [address] [place] [address] Apr, Back pain M54.9 [facility] [address] [id number] [address] [place] [id number] Apr, [facility] [address] [id number] [address] [place] [id number] Apr, Back pain M54.9 [facility] [address] [id number] [address] [place] [id number] Mar, COPD (chronic obstructive pu lmonary disease) J44.9 [facility] [address] [id number] [address] [place] [id number] Feb, [facility] [address] [id number] [address] [place] [id number] 30 Jan, 2016 [facility] [address] [id number] [address] [place] [id number] Jan, [facility] [address] [id number] [address] [place] [id number] 07 Jan, 2016 [facility] [address] [id number] [address] [place] [id number] Jan, [facility] [address] [id number] [address] [place] [address] Dec, Diabetes E11.9 ; Hypoxia R09 .02 and Back pain M54.9 [facility] [address] [id number] [address] [place] [id number] Dec, [facility] [address] [id number] [address] [place] [id number] Nov, [facility] [address] [id number] [address] [place] [id number] Oct, Anxiety F41.9 [facility] [address] [id number] [address] [place] [id number] Oct, Back pain M54.9 [facility] [address] [id number] [address] [place] [id number] September, Back pain M54.9 [facility] [address] [id number] [address] [place] [id number] September, Diabetes E11.9 [facility] [address] [id number] [address] [place] [id number] September, [facility] [address] [id number] [address] [place] [address] September, Diabetes E11.9 ; Insulin sarai g-term use Z79.4 and Back pain M54.9 [facility] [address] [id number] [address] [place] [address] Aug, Back pain M54.9 [facility] [address] [id number] [address] [place] [address] Aug, Back pain M54.9 ; Anxiety F4 1.9 and Arthropathy, unspecified M12.9 [facility] [address] [id number] [address] [place] [address] Jul, Back pain M54.9 [facility] [address] [id number] [address] [place] [id number] Jul, Anxiety F41.9 [facility] [address] [facility] [id number] [address] [place] [id number] Jul, Back pain M54.9 [facility] [address] [id number] [address] [place] [id number] Jul, [facility] [address] [facility] [id number] [address] [place] [address] Jul, [facility] [address] [facility] [id number] [address] [place] [id number] May, Back pain M54.9 ; Diabetes E 11.9 ; Insulin long-term use Z79.4 ; COPD (chronic obstructive pulmonary disease) J44.9 and Hypertension I10 [facility] [address] [facility] [id number] [address] [place] [id number] May, Chronic pain G89.29 [facility] [address] [facility] [id number] [address] [place] [address] Apr, [facility] [address] [facility] [id number] [address] [place] [address] Apr, [facility] [address] [facility] [id number] [address] [place] [id number] Mar, [facility] [address] [facility] [id number] [address] [place] [address] Mar, Encounter for immunization Z 23 and Diabetes E11.9 [facility] [address] [facility] [id number] [address] [place] [id number] Feb, [facility] [address] [facility] [id number] [address] [place] [id number] Feb, [facility] [address] [id number] [address] [place] [id number] Jan, [facility] [address] [id number] [address] [place] [id number] Jan, [facility] [address] [id number] [address] [place] [id number] Dec, [facility] [address] [id number] [address] [place] [address] Dec, [facility] [address] [id number] [address] [place] [address] Dec, Unspecified arthropathy, sit e unspecified 716.90 and Diabetes mellitus type 2, uncontrolled 250.02 [facility] [address] [id number] [address] [place] [id number] Dec, [facility] [address] [id number] [address] [place] [id number] Nov, [facility] [address] [id number] [address] [place] [id number] Oct, [facility] [address] [id number] [address] [place] [id number] September, [facility] [address] [id number] [address] [place] [id number] September, [facility] [address] [id number] [address] [place] [address] September, [facility] [address] [id number] [address] [place] [id number] September, [facility] [address] [id number] [address] [place] [id number] Aug, [facility] [address] [id number] [address] [place] [id number] Aug, [facility] [address] [id number] [address] [place] [id number] Jul, [facility] [address] [id number] [facility] [place] [phone] 18 Jul, 2014 [facility] [address] [id number] [address] [place] [address], [place] [id number] 16 Jul, 2014 [facility] [address] [id number] [address] [place] [address], [place] [id number] 16 Jul, 2014 [facility] [address] [id number] [address] [place] [address], [place] [id number] 16 Jul, 2014 [facility] [address] [id number] [address] [place] [address], [place] [id number] 16 Jul, 2014 [facility] [address] [id number] [address] [place] [address], [place] [id number] 16 Jul, 2014 [facility] [address] [id number] [address] [place] [address], [place] [id number] 16 Jul, 2014 [facility] [address] [id number] [address] [place] [address], [place] [address] 16 Jul, 2014 [facility] [address] [id number] [address] [place] [address], [place] [address] 13 Jul, 2014 [facility] [address] [id number] [address] [place] [address], [place] [address] 13 Jul, 2014 [facility] [address] [id number] [address] [place] [address], [place] [id number] 09 Jul, 2014 [facility] [address] [id number] [address] [place] [address], [place] [id number] 09 Jul, 2014 [facility] [address] [id number] [address] [place] [address], [place] [id number] 17 Jul, 2014 [facility] [address] [id number] [address] [place] [address], [place] [id number] 17 Jul, 2014 [facility] [address] [id number] [address] [place] [address], [place] [id number] 16 Jul, 2014 [facility] [address] [id number] [address] [place] [address], [place] [id number] 16 Jul, 2014 [facility] [address] [id number] [address] [place] [address], [place] [id number] 16 Jul, 2014 [facility] [address] [id number] [address] [place] [address], [place] [id number] 16 Jul, 2014 [facility] [address] [id number] [address] [place] [address], [place] [id number] 16 Jul, 2014 [facility] [address] [id number] [address] [place] [address], [place] [id number] 16 Jul, 2014 [facility] [address] [id number] [address] [place] [address], [place] [id number] 16 Jul, 2014 [facility] [address] [id number] [address] [place] [address], [place] [id number] 16 Jul, 2014 [facility] [address] [id number] [address] [place] [address], [place] [address] 16 Jul, 2014 [facility] [address] [id number] [address] [place] [address], [place] [id number] Jul, 2014 [facility] [address] [id number] [address] [place] [address], [place] [id number] 16 Jul, 2014 [facility] [address] [id number] [address] [place] [address], [place] [id number] 16 Jul, 2014 [facility] [address] [id number] [address] [place] [address], [place] [id number] Jul, 2014 [facility] [address] [id number] [address] [place] [address], [place] [id number] Jul, 2014 [facility] [address] [id number] [address] [place] [address], [place] [id number] May, [facility] [address] [id number] [address] [place] [address], [place] [id number] May, [facility] [address] [id number] [address] [place] [address], [place] [id number] May, [facility] [address] [id number] [address] [place] [address], [place] [id number] May, [facility] [address] [id number] [address] [place] [address], [place] [id number] May, [facility] [address] [id number] [address] [place] [address], [place] [id number] May, [facility] [address] [id number] [address] [place] [address], [place] [id number] May, [facility] [address] [id number] [address] [place] [address], [place] [id number] May, [facility] [address] [id number] [address] [place] [address], [place] [id number] May, [facility] [address] [id number] [address] [place] [address], [place] [id number] May, [facility] [address] [id number] [address] [place] [address], [place] [id number] Apr, [facility] [address] [id number] [address] [place] [address], [place] [id number] Apr, [facility] [address] [id number] [address] [place] [address], [place] [id number] Apr, [facility] [address] [id number] [address] [place] [address], [place] [id number] Apr, [facility] [address] [id number] [address] [place] [address], [place] [id number] Apr, [facility] [address] [id number] [address] [place] [address], [place] [id number] Apr, [facility] [address] [id number] [address] [place] [address], [place] [id number] Mar, [facility] [address] [id number] [address] [place] [address], [place] [id number] Mar, [facility] [address] [id number] [address] [place] [id number] Mar, [facility] [address] [id number] [address] [place] [address], [place] [address] Mar, [facility] [address] [id number] [address] [place] [id number] Mar, [facility] [address] [id number] [address] [place] [address], [place] [address] Mar, [facility] [address] [id number] [address] [place] [id number] Mar, [facility] [address] [id number] [address] [place] [address], [place] [address] Mar, [facility] [address] [id number] [address] [place] [address], [place] [address] Mar, [facility] [address] [id number] [address] [place] [address], [place] [address] Mar, [facility] [address] [id number] [address] [place] [address], [place] [address] Mar, [facility] [address] [id number] [address] [place] [address], [place] [address] Feb, [facility] [address] [id number] [address] [place] [address], [place] [address] Feb, [facility] [address] [id number] [address] [place] [id number] Feb, [facility] [address] [id number] [address] [place] [id number] 15 Feb, 2014 [facility] [address] [id number] [address] [place] [address], [place] [address] Feb, [facility] [address] [id number] [address] [place] [id number] Feb, [facility] [address] [id number] [address] [place] [address], [place] [address] Feb, [facility] [address] [id number] [address] [place] [address], [place] [address] Feb, [facility] [address] [id number] [address] [place] [address], [place] [address] Feb, [facility] [address] [id number] [address] [place] [address], [place] [address] Feb, [facility] [address] [id number] [address] [place] [address], [place] [address] Jan, [facility] [address] [id number] [address] [place] [address], [place] [address] 22 Jan, 2013 [facility] [address] [id number] [address] [place] [address], [place] [address] 16 Jan, 2014 [facility] [address] [id number] [address] [place] [address], [place] [address] 16 Jan, 2014 [facility] [address] [id number] [address] [place] [address], [place] [address] Jan, [facility] [address] [id number] [address] [place] [address], [place] [address] Jan, [facility] [address] [id number] [address] [place] [address], [place] [address] Jan, [facility] [address] [id number] [address] [place] [address], [place] [address] Dec, [facility] [address] [id number] [address] [place] [address], [place] [address] Dec, [facility] [address] [id number] [address] [place] [address], [place] [address] Dec, [facility] [address] [id number] [address] [place] [address], [place] [address] Dec, [facility] [address] [id number] [address] [place] [address], [place] [address] Dec, [facility] [address] [id number] [address] [place] [address], [place] [address] Dec, [facility] [address] [id number] [facility] [place] [address] Dec, [facility] [address] [id number] [address] [place] [address], [place] [address] Dec, [facility] [address] [id number] [address] [place] [address], [place] [address] Oct, [facility] [address] [id number] [address] [place] [address], [place] [address] Oct, [facility] [address] [id number] [address] [place] [address], [place] [address] September, [facility] [address] [id number] [address] [place] [address], [place] [address] September, [facility] [address] [id number] [address] [place] [address], [place] [address] September, [facility] [address] [id number] [address] [place] [address], [place] [address] September, [facility] [address] [id number] [address] [place] [address], [place] [address] September, [facility] [address] [id number] [address] [place] [address], [place] [address] September, [facility] [address] [id number] [address] [place] [address], [place] [address] September, [facility] [address] [id number] [address] [place] [address], [place] [address] Aug, [facility] [address] [id number] [address] [place] [address], [place] [address] Aug, [facility] [address] [id number] [address] [place] [address], [place] [address] Jul, [facility] [address] [id number] [address] [place] [address], [place] [address] Jul, [facility] [address] [id number] [address] [place] [address], [place] [address] 17 Jul, 2013 [facility] [address] [id number] [address] [place] [address], [place] [address] 17 Jul, 2013 [facility] [address] [id number] [address] [place] [address], [place] [address] 14 Jul, 2013 [facility] [address] [id number] [address] [place] [address], [place] [address] 14 Jul, 2013 [facility] [address] [id number] [address] [place] [address], [place] [address] 03 Jul, 2013 [facility] [address] [id number] [address] [place] [address], [place] [address] 03 Jul, 2013 [facility] [address] [id number] [address] [place] [address], [place] [address] 15 May, 2013 [facility] [address] [id number] [address] [place] [address], [place] [address] 15 May, 2013 [facility] [address] [id number] [address] [place] [address], [place] [address] 14 May, 2013 [facility] [address] [id number] [address] [place] [address], [place] [address] 14 May, 2013 [facility] [address] [id number] [address] [place] [address], [place] [address] 18 Apr, 2013 [facility] [address] [id number] [address] [place] [address], [place] [address] Mar, [facility] [address] [id number] [address] [place] [address], [place] [address] Mar, [facility] [address] [id number] [address] [place] [address], [place] [address] Mar, [facility] [address] [id number] [address] [place] [address], [place] [address] Mar, [facility] [address] [id number] [address] [place] [address], [place] [address] Mar, [facility] [address] [id number] [address] [place] [address], [place] [address] Mar, [facility] [address] [id number] [address] [place] [address], [place] [address] Mar, [facility] [address] [id number] [address] [place] [address], [place] [address] Mar, [facility] [address] [id number] [address] [place] [address], [place] [address] Mar, [facility] [address] [id number] [address] [place] [address], [place] [address] Mar, [facility] [address] [id number] [address] [place] [address], [place] [address] Mar, [facility] [address] [id number] [address] [place] [address], [place] [address] Mar, [facility] [address] [id number] [address] [place] [address], [place] [address] Feb, [facility] [address] [id number] [address] [place] [address], [place] [address] Feb, [facility] [address] [id number] [address] [place] [address], [place] [address] Feb, [facility] [address] [id number] [address] [place] [address], [place] [address] Feb, [facility] [address] [id number] [address] [place] [address], [place] [address] Feb, [facility] [address] [id number] [address] [place] [address], [place] [address] Jan, [facility] [address] [id number] [address] [place] [address], [place] [address] Dec, [facility] [address] [id number] [address] [place] [address], [place] [address] Dec, [facility] [address] [id number] [address] [place] [address] [place] [address] Dec, [facility] [address] [id number] [address] [place] [address], [place] [address] Nov, [facility] [address] [id number] [address] [place] [address], [place] [address] Nov, [facility] [address] [id number] [address] [place] [address], [place] [address] Nov, [facility] [address] [id number] [address] [place] [address], [place] [address] Oct, [facility] [address] [id number] [address] [place] [address], [place] [address] Oct, [facility] [address] [id number] [address] [place] [address], [place] [address] Oct, [facility] [address] [id number] [address] [place] [address], [place] [address] September, [facility] [address] [id number] [address] [place] [address], [place] [address] September, [facility] [address] [id number] [address] [place] [address], [place] [address] September, [facility] [address] [id number] [address] [place] [address], [place] [address] September, [facility] [address] [id number] [address] [place] [address], [place] [address] September, [facility] [address] [id number] [address] [place] [address], [place] [address] Aug, [facility] [address] [id number] [address] [place] [address], [place] [address] Aug, [facility] [address] [id number] [address] [place] [address], [place] [address] Aug, [facility] [address] [id number] [address] [place] [address], [place] [address] Jul, [facility] [address] [id number] [address] [place] [address], [place] [address] Jul, [facility] [address] [id number] [address] [place] [address], [place] [address] 25 Jul, 2012 [facility] [address] [id number] [address] [place] [address], [place] [address] Jul, [facility] [address] [id number] [address] [place] [address], [place] [address] Jul, [facility] [address] [id number] [address] [place] [address], [place] [address] Jul, [facility] [address] [id number] [address] [place] [address], [place] [address] Jul, [facility] [address] [id number] [address] [place] [address], [place] [address] May, [facility] [address] [id number] [address] [place] [address], [place] [address] May, [facility] [address] [id number] [address] [place] [address], [place] [address] May, [facility] [address] [id number] [address] [place] [address], [place] [address] Apr, [facility] [address] [id number] [address] [place] [address], [place] [address] Apr, [facility] [address] [id number] [address] [place] [address], [place] [address] Apr, [facility] [address] [id number] [address] [place] [address], [place] [address] Apr, [facility] [address] [id number] [address] [place] [address], [place] [address] Apr, [facility] [address] [id number] [address] [place] [address], [place] [address] 29 Mar, 2012 [facility] [address] [id number] [place] [address] Mar, [facility] [address] [id number] [address] [place] [address], [place] [address] Mar, [facility] [address] [id number] [address] [place] [address], [place] [address] Mar, [facility] [address] [id number] [address] [place] [address], [place] [address] Feb, [facility] [address] [id number] [address] [place] [address], [place] [address] Feb, [facility] [address] [id number] [address] [place] [address], [place] [address] Feb, [facility] [address] [id number] [address] [place] [address], [place] [address] Feb, [facility] [address] [id number] [address] [place] [address], [place] [address] Feb, [facility] [address] [id number] [address] [place] [address], [place] [address] Jan, [facility] [address] [id number] [address] [place] [address], [place] [address] Dec, [facility] [address] [id number] [address] [place] [address], [place] [address] Dec, [facility] [address] [id number] [address] [place] [address], [place] [address] Dec, [facility] [address] [id number] [address] [place] [address] Nov, [facility] [address] [id number] [address] [place] [address], [place] [address] Nov, [facility] [address] [id number] [address] [place] [address], [place] [address] Nov, [facility] [address] [id number] [address] [place] [address], [place] [address] Oct, [facility] [address] [id number] [address] [place] [address], [place] [address] 19 Oct, 2011 [facility] [address] [id number] [address] [place] [address], [place] [address] 18 Oct, 2011 [facility] [address] [id number] [address] [place] [address], [place] [address] Oct, [facility] [address] [id number] [address] [place] [address], [place] [address] September, [facility] [address] [id number] [address] [place] [address], [place] [address] September, [facility] [address] [id number] [address] [place] [address], [place] [address] 30 Aug, 2011 [facility] [address] [id number] [address] [place] [address], [place] [address] Aug, [facility] [address] [id number] [address] [place] [address], [place] [address] Aug, [facility] [address] [id number] [address] [place] [address], [place] [address] Aug, [facility] [address] [id number] [address] [place] [address], [place] [address] Aug, [facility] [address] [id number] [address] [place] [address], [place] [address] Aug, [facility] [address] [id number] [address] [place] [address], [place] [address] Aug, [facility] [address] [id number] [address] [place] [address], [place] [address] Jul, [facility] [address] [id number] [address] [place] [address], [place] [address] 08 Jul, 2011 [facility] [address] [id number] [address] [place] [address], [place] [address] 14 Jul, 2011 [facility] [address] [id number] [address] [place] [address], [place] [address] May, [facility] [address] [id number] [address] [place] [id number] May, [facility] [address] [id number] [address] [place] [id number] May, [facility] [address] [id number] [address] [place] [id number] Apr, [facility] [address] [id number] [address] [place] [id number] Apr, [facility] [address] [id number] [address] [place] [id number] Mar, [facility] [address] [id number] [address] [place] [id number] Mar, [facility] [address] [id number] [address] [place] [id number] Mar, [facility] [address] [id number] [address] [place] [id number] Mar, [facility] [address] [id number] [address] [place] [id number] Mar, [facility] [address] [id number] [address] [place] [id number] Mar, [facility] [address] [id number] [address] [place] [id number] Feb, [facility] [address] [id number] [address] [place] [id number] Feb, [facility] [address] [id number] [address] [place] [id number] Feb, IMMUNIZATIONS No Known Immunizations SOCIAL HISTORY Never Assessed REASON FOR VISIT EMR-[facility] PLAN OF CARE VITAL SIGNS MEDICATIONS Medication Instructions Dosage Frequency Start Date End Date Duration S tatus Humalog KwikPen 100 unit/mL 30 unit by Subcutaneous ro nabil 3 times per day May, Active Lyrica 225 mg 1 capsule by Oral route 2 times per day Mar, Active Soma 350 mg 1 tablet by Oral route 1 time per day PRN hs May, Active Zithromax Z-Jeyson 250 mg 2 tablet by Oral route 1 time per day for 1 days then take 1 tab daily on days 2-5 May, Active Azithromycin 250 mg 2 Tablet by Oral rou te on day 1 then take 1 daily for 4 days May, Active Triamcinolone Acetonide 0.1 % apply a th in layer to the affected area(s) by Topical route 2 times per day 120 gm Jul, Active Ceftin 500 mg 1 tablet by Oral route 2 times per day f or 10 day(s) Feb, Active Doxycycline Hyclate 100 mg 1 tablet by Oral rout e 2 times per day for 10 days Oct, Active MS Contin 30 mg 1 tablet by Oral route every 12 hours Jul, Active Omafxsgl-Jrfxmuzct-DX 3.5-10,000-1 mg-unit/mL-% 2 drop by Otic route 4 times per day for 7 day(s) Mar, Active Albuterol Sulfate 2.5 mg /3 mL (0.083 %) 1 Each by Inhalation route every 4 hours for cough and wheezePRNfor wheezing or cough Oct, Active Alprazolam 0.5 mg 1 tablet by Oral route 3 times per day Jul, Active Keflex 500 mg take 1 capsule (500 mg) by oral route every 6 hours for 10 days Aug, Active Hydrocodone-Acetaminophen 10-325 mg 1 ta blet by Oral route every 6 hours PRN 28 day supply, Jul, Active Omnicef 300 mg 2 capsule by Oral route 1 time per day for 10 day(s) Jul, Active RESULTS No Results PROCEDURES No Known [...]
--- OUTSIDE RECORDS SUMMARY | 2020-01-03 07:59 | XMS REPORT ---
Author Author Tra SILVERIO Organization [facility] Address [address] [place] [address] Care Team Providers Care Train Control Electronic Technician Name Role Phone FERNY SILVERIO Unavailable PROBLEMS Type Condition ICD9-CM Code JJA22-BJ Code Onset Dates Condition S tatus SNOMED Code Problem Hypoxia R09.02 Active 135028791 Problem Port catheter in place Z95.828 Active 087160382 Problem Anxiety F41.9 Active 24774387 Problem Type 2 diabetes mellitus wit h diabetic peripheral angiopathy without gangrene E11.51 Active 533251346 Problem Pressure ulcer of other site, stage 3 L89.893 Active 287514356 Problem Lumbar radiculopathy, chronic M54.16 Active 664009425 Problem PAD (peripheral artery disease) I73.9 Active 225433018 Problem alf current use of insulin Z79.4 Active 837457666 Problem Recurrent major depressive disorder, in full remission F33.42 Active 639172426 Problem Diabetes E11.9 Active 99304014 Problem Hypertension I10 Active 7319734 3 Problem Back pain M54.9 Active 297695523 Problem Insulin long-term use Z79.4 Active 218627236 Problem COPD (chronic obstructive pulmonary disease) J44.9 Active 45827554 ALLERGIES No Information ENCOUNTERS Encounter Location Date Diagnosis [facility] [address] [facility] [id number] [address] [place] [id number] Apr, [facility] [address] [facility] [id number] [address] [place] [address] Apr, [facility] [address] [facility] [id number] [address] [place] [id number] Apr, [facility] [address] [facility] [id number] [address] [place] [address] Mar, Back pain M54.9 and Anxiety F41.9 [facility] [address] [id number] [address] [place] [address] Mar, [facility] [address] [id number] [address] [place] [id number] Mar, [facility] [address] [id number] [address] [place] [id number] Mar, [facility] [address] [id number] [address] [place] [address] Mar, Encounter for immunization Z 23 [facility] [address] [id number] [address] [place] [address] Feb, Back pain M54.9 and Anxiety F41.9 [facility] [address] [id number] [address] [place] [id number] Feb, Back pain M54.9 and Anxiety F41.9 [facility] [address] [id number] [address] [place] [address] Jan, Back pain M54.9 and Anxiety F41.9 [facility] [address] [id number] [address] [place] [id number] Jan, [facility] [address] [id number] [address] [place] [id number] Dec, [facility] [address] [id number] [address] [place] [id number] Dec, Back pain M54.9 and Anxiety F41.9 [facility] [address] [id number] [address] [place] [id number] 13 Dec, 2017 Diabetes E11.9 ; Type 2 diab etes mellitus with diabetic peripheral angiopathy without gangrene E11.51 ; Lumbar radiculopathy, chronic M54.16 ; COPD (chronic obstructive pulmonary disease) J44.9 and Anxiety F41.9 [facility] [address] [id number] [address] [place] [id number] Dec, Back pain M54.9 and Anxiety F41.9 [facility] [address] [id number] [address] [place] [address] Nov, Back pain M54.9 and Anxiety F41.9 [facility] [address] [id number] [address] [place] [address] Oct, [facility] [address] [id number] [address] [place] [address] Oct, Back pain M54.9 and Anxiety F41.9 [facility] [address] [id number] [address] [place] [address] September, Anxiety F41.9 and Back pain M54.9 [facility] [facility] [address] [id number] [address] [place] [address] September, Diabetes E11.9 ; Hypertensio n I10 ; COPD (chronic obstructive pulmonary disease) J44.9 and Lumbar radiculopathy, chronic M54.16 [place] [address] [id number] [address] [place] [address] September, Anxiety F41.9 [place] [address] [id number] [address] [place] [address] Aug, [facility] [address] [id number] [address] [place] [address] Aug, [place] [address] [id number] [address] [place] [address] Aug, Anxiety F41.9 and Back pain M54.9 [facility] [address] [id number] [address] [place] [address] Aug, Medicare annual wellness vis it, initial Z00.00 ; COPD (chronic obstructive pulmonary disease) J44.9 ; PAD (peripheral artery disease) I73.9 ; Insulin long-term use Z79.4 ; Hypertension I10 ; Anxiety F41.9 ; Recurrent major depressive disorder, in full remission F33.42 ; Pressure ulcer of other site, stage 3 L89.893 ; Type 2 diabetes mellitus with diabetic peripheral angiopathy without gangrene E11.51 and alf current use of insulin Z79.4 [facility] [address] [id number] [address] [place] [address] Jul, Back pain M54.9 [facility] [address] [id number] [address] [place] [address] Jul, [facility] [address] [id number] [address] [place] [address] Jul, Anxiety F41.9 and Back pain M54.9 [facility] [address] [id number] [address] [place] [address] Jul, Diabetes E11.9 [facility] [address] [id number] [address] [place] [address] May, [facility] [address] [id number] [address] [place] [address] May, Diabetes E11.9 ; Anxiety F41 .9 ; Back pain M54.9 and COPD (chronic obstructive pulmonary disease) J44.9 [facility] [address] [id number] [address] [place] [id number] May, Back pain M54.9 [facility] [address] [id number] [address] [place] [address] May, [facility] [address] [id number] [address] [place] [address] Apr, Back pain M54.9 [facility] [address] [id number] [address] [place] [address] Mar, Back pain M54.9 [facility] [address] [id number] [address] [place] [id number] Mar, [facility] [address] [id number] [address] [place] [id number] 16 Mar, 2017 [facility] [address] [id number] [address] [place] [id number] 14 Mar, 2017 Radiculopathy of lumbar rhiannon on M54.16 [facility] [address] [facility] [id number] [address] [place] [id number] 13 Mar, 2017 [facility] [address] [facility] [id number] [address] [place] [id number] 07 Mar, 2017 Encounter for immunization Z 23 and Lumbar radiculopathy, chronic M54.16 [facility] [address] [facility] [id number] [address] [place] [address] Mar, Back pain M54.9 and Anxiety F41.9 [facility] [address] [facility] [id number] [place] [id number] 10 Feb, 2017 Acute bilateral low back boy n with left-sided sciatica M54.42 and Acute bilateral low back pain with right-sided sciatica M54.41 [place] [address] [place] [id number] [address] [place] [address] Feb, [place] [address] [place] [id number] [address] [place] [address] Feb, Back pain M54.9 [place] [address] [place] [id number] [address] [place] [id number] 05 Jan, 2017 Back pain M54.9 and Anxiety F41.9 [place] [address] [place] [id number] [address] [place] [address] Jan, Diabetes E11.9 [place] [address] [place] [id number] [place] [id number] 14 Dec, 2016 Diabetes E11.9 ; Back pain M 54.9 ; Anxiety F41.9 and Insulin long- term use Z79.4 [place] [address] [facility] [id number] [address] [place] [id number] Dec, Anxiety F41.9 [place] [address] [place] [id number] [address] [place] [address] Dec, Back pain M54.9 [place] [address] [id number] [address] [place] [address] Nov, Back pain M54.9 [facility] [address] [id number] [address] [place] [address] Oct, Back pain M54.9 and Anxiety F41.9 [facility] [address] [id number] [address] [place] [id number] September, Back pain M54.9 [facility] [address] [id number] [address] [place] [address] September, Back pain M54.9 and Anxiety F41.9 [facility] [address] [id number] [address] [place] [address] Aug, Diabetes E11.9 ; Anxiety F41 .9 ; Back pain M54.9 and PAD (peripheral artery disease) I73.9 [facility] [address] [id number] [address] [place] [id number] Aug, Anxiety F41.9 [facility] [address] [id number] [address] [place] [id number] Aug, Back pain M54.9 [facility] [address] [id number] [address] [place] [id number] 23 Jul, 2016 Back pain M54.9 [facility] [address] [id number] [address] [place] [id number] 13 Jul, 2016 Back pain M54.9 [facility] [address] [id number] [address] [place] [id number] 23 Jul, 2016 Back pain M54.9 [facility] [address] [id number] [address] [place] [id number] 16 Jul, 2016 Dorsalgia M54.9 [facility] [address] [id number] [address] [place] [id number] 14 Jul, 2016 [facility] [address] [id number] [address] [place] [id number] May, Back pain M54.9 [facility] [address] [id number] [address] [place] [address] May, Diabetes E11.9 ; Anxiety F41 .9 ; Port catheter in place Z95.828 ; Encounter for immunization Z23 and Insulin long-term use Z79.4 [facility] [address] [id number] [address] [place] [id number] Apr, Back pain M54.9 [facility] [address] [id number] [address] [place] [id number] Apr, Back pain M54.9 [facility] [address] [id number] [address] [place] [id number] Apr, [facility] [address] [facility] [id number] [address] [place] [address] Apr, Back pain M54.9 [facility] [address] [id number] [address] [place] [id number] Mar, COPD (chronic obstructive pu lmonary disease) J44.9 [facility] [address] [id number] [address] [place] [id number] Feb, [facility] [address] [facility] [id number] [address] [place] [id number] Jan, [facility] [address] [id number] [address] [place] [address] Jan, [facility] [address] [id number] [address] [place] [id number] Jan, [facility] [address] [id number] [address] [place] [id number] Jan, [facility] [address] [id number] [address] [place] [id number] Dec, Diabetes E11.9 ; Hypoxia R09 .02 and Back pain M54.9 [facility] [address] [id number] [address] [place] [id number] Dec, [facility] [address] [id number] [address] [place] [id number] Nov, [facility] [address] [id number] [address] [place] [address] Oct, Anxiety F41.9 [facility] [address] [id number] [address] [place] [id number] Oct, Back pain M54.9 [facility] [address] [id number] [address] [place] [id number] September, Back pain M54.9 [facility] [address] [id number] [address] [place] [id number] September, Diabetes E11.9 [facility] [address] [id number] [address] [place] [id number] September, [facility] [address] [id number] [address] [place] [address] September, Diabetes E11.9 ; Insulin sarai g-term use Z79.4 and Back pain M54.9 [facility] [address] [id number] [address] [place] [address] Aug, Back pain M54.9 [facility] [address] [id number] [address] [place] [address] Aug, Back pain M54.9 ; Anxiety F4 1.9 and Arthropathy, unspecified M12.9 [facility] [address] [id number] [address] [place] [id number] Jul, Back pain M54.9 [facility] [address] [id number] [address] [place] [address] Jul, Anxiety F41.9 [facility] [address] [facility] [id number] [address] [place] [id number] Jul, Back pain M54.9 [facility] [address] [facility] [id number] [address] [place] [id number] 17 Jul, 2015 [facility] [address] [facility] [id number] [address] [place] [id number] Jul, [facility] [address] [facility] [id number] [address] [place] [address] May, Back pain M54.9 ; Diabetes E 11.9 ; Insulin long-term use Z79.4 ; COPD (chronic obstructive pulmonary disease) J44.9 and Hypertension I10 [facility] [address] [facility] [id number] [address] [place] [address] May, Chronic pain G89.29 [facility] [address] [facility] [id number] [address] [place] [id number] Apr, [facility] [address] [facility] [id number] [address] [place] [address] Apr, [facility] [address] [facility] [id number] [address] [place] [id number] Mar, [facility] [address] [facility] [id number] [address] [place] [id number] Mar, Encounter for immunization Z 23 and Diabetes E11.9 [facility] [address] [facility] [id number] [address] [place] [id number] Feb, [facility] [address] [facility] [id number] [address] [place] [address] Feb, [facility] [address] [facility] [id number] [address] [place] [id number] 23 Jan, 2015 [facility] [address] [facility] [id number] [address] [place] [id number] 16 Jan, 2015 [facility] [address] [facility] [id number] [address] [place] [address] Dec, [facility] [address] [facility] [id number] [address] [place] [address] Dec, [facility] [address] [id number] [address] [place] [address] Dec, Unspecified arthropathy, sit e unspecified 716.90 and Diabetes mellitus type 2, uncontrolled 250.02 [facility] [address] [id number] [address] [place] [address], [place] [address] Dec, [facility] [address] [id number] [address] [place] [address], [place] [address] Nov, [facility] [address] [id number] [address] [place] [address], [place] [address] Oct, [facility] [address] [id number] [address] [place] [address], [place] [address] September, [facility] [address] [id number] [address] [place] [address], [place] [address] September, [facility] [address] [id number] [address] [place] [address], [place] [address] September, [facility] [address] [id number] [address] [place] [address], [place] [address] September, [facility] [address] [id number] [address] [place] [address], [place] [address] Aug, [facility] [address] [id number] [address] [place] [address], [place] [address] Aug, [facility] [address] [id number] [address] [place] [address], [place] [address] Jul, [facility] [address] [id number] [address] [place] [address], [place] [address] 18 Jul, 2014 [facility] [address] [id number] [address] [place] [address], [place] [address] 16 Jul, 2014 [facility] [address] [id number] [address] [place] [address], [place] [address] 16 Jul, 2014 [facility] [address] [id number] [address] [place] [id number] 16 Jul, 2014 [facility] [place] [address] [id number] [address] [place] [address], [place] [address] 16 Jul, 2014 [facility] [address] [id number] [address] [place] [address], [place] [address] 16 Jul, 2014 [facility] [place] [address] [id number] [address] [place] [address], [place] [address] 16 Jul, 2014 [facility] [place] [address] [id number] [address] [place] [address], [place] [address] 16 Jul, 2014 [facility] [place] [address] [id number] [address] [place] [address], [place] [address] 13 Jul, 2014 [facility] [address] [id number] [address] [place] [address], [place] [address] 13 Jul, 2014 [facility] [address] [id number] [address] [place] [address], [place] [address] 09 Jul, 2014 [facility] [address] [id number] [address] [place] [address], [place] [address] 09 Jul, 2014 [facility] [address] [id number] [address] [place] [address], [place] [address] 17 Jul, 2014 [facility] [address] [id number] [address] [place] [address], [place] [address] 17 Jul, 2014 [facility] [address] [id number] [address] [place] [address], [place] [address] 16 Jul, 2014 [facility] [address] [id number] [address] [place] [address], [place] [address] 16 Jul, 2014 [facility] [address] [id number] [address] [place] [address], [place] [address] 16 Jul, 2014 [facility] [address] [id number] [address] [place] [address], [place] [address] 16 Jul, 2014 [facility] [address] [id number] [address] [place] [address], [place] [address] 16 Jul, 2014 [facility] [address] [id number] [address] [place] [address], [place] [address] 16 Jul, 2014 [facility] [address] [id number] [address] [place] [address], [place] [address] Jul, 2014 [facility] [address] [id number] [address] [place] [address], [place] [address] 16 Jul, 2014 [facility] [address] [id number] [address] [place] [address], [place] [address] Jul, 2014 [facility] [address] [id number] [address] [place] [address], [place] [address] Jul, 2014 [facility] [address] [id number] [address] [place] [address], [place] [address] Jul, 2014 [facility] [address] [id number] [address] [place] [address], [place] [address] Jul, 2014 [facility] [address] [id number] [address] [place] [address], [place] [address] Jul, 2014 [facility] [address] [id number] [address] [place] [address], [place] [address] Jul, [facility] [address] [id number] [address] [place] [address], [place] [address] May, [facility] [address] [id number] [address] [place] [address], [place] [address] May, [facility] [address] [id number] [address] [place] [address], [place] [address] May, [facility] [address] [id number] [address] [place] [address], [place] [address] May, [facility] [address] [id number] [address] [place] [address], [place] [address] May, [facility] [address] [id number] [address] [place] [address], [place] [address] May, [facility] [address] [id number] [address] [place] [address], [place] [address] May, [facility] [address] [id number] [address] [place] [address], [place] [address] May, [facility] [address] [id number] [address] [place] [address], [place] [address] May, [facility] [address] [id number] [address] [place] [address], [place] [address] May, [facility] [address] [id number] [address] [place] [address], [place] [address] Apr, [facility] [address] [id number] [address] [place] [address], [place] [address] Apr, [facility] [address] [id number] [address] [place] [address], [place] [address] Apr, [facility] [address] [id number] [address] [place] [address], [place] [address] Apr, [facility] [address] [id number] [address] [place] [address], [place] [address] Apr, [facility] [address] [id number] [address] [place] [address], [place] [address] Apr, [facility] [address] [id number] [address] [place] [address], [place] [address] Mar, [facility] [address] [id number] [address] [place] [address], [place] [address] Mar, [facility] [address] [id number] [address] [place] [address], [place] [address] Mar, [facility] [address] [id number] [address] [place] [address], [place] [address] Mar, [facility] [address] [id number] [address] [place] [address], [place] [address] Mar, [facility] [address] [id number] [address] [place] [address], [place] [address] Mar, [facility] [address] [id number] [address] [place] [address], [place] [address] Mar, [facility] [address] [id number] [address] [place] [address], [place] [address] 17 Mar, 2014 [facility] [address] [id number] [address] [place] [address], [place] [address] Mar, [facility] [address] [id number] [address] [place] [address], [place] [address] Mar, [facility] [address] [id number] [address] [place] [address], [place] [address] Mar, [facility] [address] [id number] [address] [place] [address], [place] [address] Feb, [facility] [address] [id number] [address] [place] [address], [place] [address] Feb, [facility] [address] [id number] [address] [place] [address], [place] [address] Feb, [facility] [address] [id number] [address] [place] [address], [place] [address] Feb, [facility] [address] [id number] [address] [place] [address], [place] [address] Feb, [facility] [address] [id number] [address] [place] [address], [place] [address] Feb, [facility] [address] [id number] [address] [place] [address], [place] [address] Feb, [facility] [address] [id number] [address] [place] [address], [place] [address] Feb, [facility] [address] [id number] [address] [place] [address], [place] [address] Feb, [facility] [address] [id number] [address] [place] [address], [place] [address] Feb, [facility] [address] [id number] [address] [place] [address], [place] [address] Jan, [facility] [address] [id number] [address] [place] [address], [place] [address] 22 Jan, 2013 [facility] [address] [id number] [address] [place] [address], [place] [address] 16 Jan, 2014 [facility] [address] [id number] [address] [place] [address], [place] [address] 16 Jan, 2013 [facility] [address] [id number] [address] [place] [address], [place] [address] 12 Jan, 2014 [facility] [address] [id number] [address] [place] [address], [place] [address] Jan, [facility] [address] [id number] [address] [place] [address], [place] [address] Jan, [facility] [address] [id number] [address] [place] [address], [place] [address] Dec, [facility] [address] [id number] [address] [place] [address], [place] [address] Dec, [facility] [address] [id number] [address] [place] [address], [place] [address] Dec, [facility] [address] [id number] [address] [place] [address], [place] [address] Dec, [facility] [address] [id number] [address] [place] [address], [place] [address] Dec, [facility] [address] [id number] [address] [place] [address], [place] [address] Dec, [facility] [address] [id number] [address] [place] [address], [place] [address] Dec, [facility] [address] [id number] [address] [place] [address], [place] [address] Dec, [facility] [address] [id number] [address] [place] [address], [place] [address] Oct, [facility] [address] [id number] [address] [place] [address], [place] [address] Oct, [facility] [address] [id number] [address] [place] [address], [place] [address] September, [facility] [address] [id number] [address] [place] [address], [place] [address] September, [facility] [address] [id number] [address] [place] [address], [place] [address] September, [facility] [address] [id number] [address] [place] [address], [place] [address] September, [facility] [address] [id number] [address] [place] [address], [place] [address] September, [facility] [address] [id number] [address] [place] [address], [place] [address] September, [facility] [address] [id number] [address] [place] [address], [place] [address] September, [facility] [address] [id number] [address] [place] [address], [place] [address] Aug, [facility] [address] [id number] [address] [place] [address], [place] [address] Aug, [facility] [address] [id number] [address] [place] [address], [place] [address] Jul, [facility] [address] [id number] [address] [place] [address], [place] [address] Jul, [facility] [address] [id number] [address] [place] [address], [place] [address] Jul, [facility] [address] [id number] [address] [place] [address], [place] [address] Jul, [facility] [address] [id number] [address] [place] [address], [place] [address] Jul, [facility] [address] [id number] [address] [place] [address], [place] [address] Jul, [facility] [address] [id number] [address] [place] [address], [place] [address] Jul, [facility] [address] [id number] [address] [place] [address], [place] [address] Jul, [facility] [address] [id number] [address] [place] [address], [place] [address] May, [facility] [address] [id number] [address] [place] [address], [place] [address] May, [facility] [address] [id number] [address] [place] [address], [place] [address] May, [facility] [address] [id number] [address] [place] [address], [place] [address] May, [facility] [address] [id number] [address] [place] [address], [place] [address] Apr, [facility] [address] [id number] [address] [place] [address], [place] [address] Mar, [facility] [address] [id number] [address] [place] [address], [place] [address] Mar, [facility] [address] [id number] [address] [place] [address] Mar, [facility] [address] [id number] [address] [place] [address] Mar, [facility] [address] [id number] [address] [place] [address] Mar, [facility] [address] [id number] [address] [place] [address], [place] [address] Mar, [facility] [address] [id number] [address] [place] [address], [place] [address] Mar, [facility] [address] [id number] [address] [place] [address] Mar, [facility] [address] [id number] [address] [place] [address] Mar, [facility] [address] [id number] [address] [place] [address], [place] [address] Mar, [facility] [address] [id number] [address] [place] [address], [place] [address] Mar, [facility] [address] [id number] [address] [place] [address], [place] [address] Mar, [facility] [address] [id number] [address] [place] [address], [place] [address] Feb, [facility] [address] [id number] [address] [place] [address], [place] [address] Feb, [facility] [address] [id number] [address] [place] [address], [place] [address] Feb, [facility] [address] [id number] [address] [place] [address], [place] [address] Feb, [facility] [address] [id number] [address] [place] [address], [place] [address] Feb, [facility] [address] [id number] [address] [place] [address], [place] [address] Jan, [facility] [address] [id number] [address] [place] [address], [place] [address] Dec, [facility] [address] [id number] [address] [place] [address], [place] [address] Dec, [facility] [address] [id number] [address] [place] [address], [place] [address] Dec, [facility] [address] [id number] [address] [place] [address], [place] [address] Nov, [facility] [address] [id number] [address] [place] [address], [place] [address] Nov, [facility] [address] [id number] [address] [place] [address], [place] [address] Nov, [facility] [address] [id number] [facility] [address] 27 Oct, 2012 [facility] [address] [id number] [address] [place] [address], [place] [address] Oct, [facility] [address] [id number] [facility] [address] Oct, [facility] [address] [id number] [address] [place] [address], [place] [address] September, [facility] [address] [id number] [address] [place] [address], [place] [address] September, [facility] [address] [id number] [address] [place] [address], [place] [address] September, [facility] [address] [id number] [address] [place] [address], [place] [address] September, [facility] [address] [id number] [address] [place] [address], [place] [address] September, [facility] [address] [id number] [address] [place] [address], [place] [address] Aug, [facility] [address] [id number] [address] [place] [address], [place] [address] Aug, [facility] [address] [id number] [address] [place] [address], [place] [address] Aug, [facility] [address] [id number] [address] [place] [address], [place] [address] Jul, [facility] [address] [id number] [address] [place] [address], [place] [address] Jul, [facility] [address] [id number] [address] [place] [address], [place] [address] Jul, [facility] [address] [id number] [address] [place] [address], [place] [address] Jul, [facility] [address] [id number] [address] [place] [address], [place] [address] Jul, [facility] [address] [id number] [address] [place] [address], [place] [address] Jul, [facility] [address] [id number] [address] [place] [address], [place] [address] Jul, [facility] [address] [id number] [address] [place] [address], [place] [address] May, [facility] [address] [id number] [address] [place] [address], [place] [address] May, [facility] [address] [id number] [address] [place] [address], [place] [address] May, [facility] [address] [id number] [address] [place] [address], [place] [address] Apr, [facility] [address] [id number] [address] [place] [address], [place] [address] Apr, [facility] [address] [id number] [address] [place] [address], [place] [address] Apr, [facility] [address] [id number] [address] [place] [address], [place] [address] Apr, [facility] [address] [id number] [address] [place] [address], [place] [address] Apr, [facility] [address] [id number] [address] [place] [address], [place] [address] Mar, [facility] [address] [id number] [address] [place] [address], [place] [address] 29 Mar, 2012 [facility] [address] [id number] [address] [place] [address], [place] [address] Mar, [facility] [address] [id number] [address] [place] [address], [place] [address] Mar, [facility] [address] [id number] [address] [place] [address], [place] [address] Feb, [facility] [address] [id number] [address] [place] [address], [place] [address] Feb, [facility] [address] [id number] [address] [place] [address], [place] [address] Feb, [facility] [address] [id number] [address] [place] [address], [place] [address] Feb, [facility] [address] [id number] [address] [place] [address], [place] [address] Feb, [facility] [address] [id number] [address] [place] [address], [place] [address] Jan, [facility] [address] [id number] [address] [place] [address], [place] [address] Dec, [facility] [address] [id number] [address] [place] [address], [place] [address] Dec, [facility] [address] [id number] [address] [place] [address], [place] [address] Dec, [facility] [address] [id number] [address] [place] [address], [place] [address] Nov, [facility] [address] [id number] [address] [place] [address], [place] [address] Nov, [facility] [address] [id number] [address] [place] [address], [place] [address] Nov, [facility] [address] [id number] [address] [place] [address], [place] [address] Oct, [facility] [address] [id number] [address] [place] [address], [place] [address] Oct, [facility] [address] [id number] [address] [place] [address], [place] [address] Oct, [facility] [address] [id number] [address] [place] [address], [place] [address] Oct, [facility] [address] [id number] [address] [place] [address], [place] [address] September, [facility] [address] [id number] [address] [place] [address], [place] [address] September, [facility] [address] [id number] [address] [place] [address], [place] [address] Aug, [facility] [address] [id number] [address] [place] [address], [place] [address] Aug, [facility] [address] [id number] [address] [place] [address], [place] [address] Aug, [facility] [address] [id number] [address] [place] [address], [place] [address] Aug, [facility] [address] [id number] [address] [place] [address], [place] [address] Aug, [facility] [address] [id number] [address] [place] [address], [place] [address] Aug, [facility] [address] [id number] [address] [place] [address], [place] [address] Aug, [facility] [address] [id number] [address] [place] [address], [place] [address] Jul, [facility] [address] [id number] [address] [place] [address], [place] [address] Jul, [facility] [address] [id number] [address] [place] [address], [place] [address] Jul, [facility] [address] [id number] [address] [place] [address], [place] [address] May, [facility] [address] [id number] [address] [place] [address], [place] [address] May, [facility] [address] [id number] [address] [place] [address], [place] [address] May, [facility] [address] [id number] [address] [place] [address], [place] [address] Apr, [facility] [address] [id number] [address] [place] [address] Apr, [facility] [address] [id number] [address] [place] [address] Mar, [facility] [address] [id number] [address] [place] [address] Mar, [facility] [address] [id number] [address] [place] [address] Mar, [facility] [address] [id number] [address] [place] [address] Mar, [facility] [address] [id number] [address] [place] [address] Mar, [facility] [address] [id number] [address] [place] [address] Mar, [facility] [address] [id number] [address] [place] [address] Feb, [facility] [address] [id number] [address] [place] [address] Feb, [facility] [address] [id number] [address] [place] [address] Feb, IMMUNIZATIONS No Known Immunizations SOCIAL HISTORY Never Assessed REASON FOR VISIT Refill request PLAN OF CARE VITAL SIGNS MEDICATIONS Medication Instructions Dosage Frequency Start Date End Date Duration S tatus Soma 350 mg Orally Once a day [...]
--- OUTSIDE RECORDS SUMMARY | 2020-01-03 08:05 | XMS REPORT ---
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 Name Role Phone FERNY SILVERIO Unavailable PROBLEMS Type Condition ICD9-CM Code BUH18-ZU Code Onset Dates Condition S tatus SNOMED Code Problem Hypertension I10 Active 0336505 3 Problem Hypoxia R09.02 Active 565710093 Problem COPD (chronic obstructive pulmonary disease) J44.9 Active 15650164 Problem Lumbar radiculopathy, chronic M54.16 Active 767422687 Problem longterm current use of insulin Z79.4 Active 205306333 Problem Recurrent major depressive disorder, in full remission F33.42 Active 787101298 Problem Hyperlipidemia, unspecified E78.5 Ac tive 18527663 Problem PAD (peripheral artery disease) I73.9 Active 409590181 Problem Type 2 diabetes mellitus with other specified complication E11.69 Active 005256457524 Problem Anxiety F41.9 Active 39386610 Problem Type 2 diabetes mellitus wit h diabetic peripheral angiopathy without gangrene E11.51 Active 367756818 Problem ED (erectile dysfunction) of organic origin N52.9 Active 923844082 Problem Arthritis M19.90 Active 6483414 Problem Morbid (severe) obesity due to excess calories E66 .01 Active 696510268 ALLERGIES No Information ENCOUNTERS Encounter Location Date Diagnosis [address] 340 [id number] [address] Nov, Anxiety F41.[address] 340B [id number], [place] [address] Nov, Back pain M54.9 [facility] [address] [facility] [id number] [address] [place] [address] Nov, Back pain M54.9 [facility] [address] [facility] [id number] [address] [place] [address] Nov, [address] 340[address] [id number] [place] [address] Oct, Anxiety F41.[address] 340B [id number] [address] Oct, [facility] [address] [id number] [address] [place] [address] 17 Oct, 2019 [facility] [address] [id number] [address] [place] [address] 15 Oct, 2019 Back pain M54.9 and Lumbar r adiculopathy, chronic M54.16 [facility] [address] [id number] [address] [place] [address] 04 Oct, 2019 Lumbar radiculopathy, chroni c M54.16 [facility] [address] [id number] [address] [place] [address] 03 Oct, 2019 Anxiety F41.[address] 340[address] [id number] [address] Oct, [facility] [address] [id number] [address] [place] [address] September, Back pain M54.9 and Lumbar r adiculopathy, chronic M54.[address] 340[address] [id number], [place] [address] September, Anxiety F41.9 [place] [address] [id number] [address] Aug, [facility] [address] [id number] [address] [place] [address] Aug, Back pain M54.9 and Lumbar r adiculopathy, chronic M54.16 [facility] [address] [id number] [address] [place] [address] Aug, Anxiety F41.9 ; Back pain M5 4.9 and Lumbar radiculopathy, chronic M54.16 [facility] [address] [id number] [address] [place] [address] 09 Aug, 2019 Lumbar radiculopathy, chroni c M54.16 ; Anxiety F41.9 ; Type 2 diabetes mellitus with other specified complication E11.69 and Hypertension I10 [facility] [address] [id number] [address] [place] [address] 30 Jul, 2019 [facility] [address] [id number] [address] [place] [address] 27 Jul, 2019 Lumbar radiculopathy, chroni c M54.16 ; Back pain M54.9 and Anxiety F41.9 [facility] [address] [id number] [address] [place] [address] 23 Jul, 2019 [facility] [address] [id number] [address] [place] [address] 13 Jul, 2019 Anxiety F41.9 [facility] [address] [id number] [address] [place] [address] 12 Jul, 2019 Anxiety F41.9 [facility] [address] [id number] [address] [place] [address] 02 Jul, 2019 Back pain M54.9 [facility] [address] [id number] [address] [place] [address] 02 Jul, 2019 Back pain M54.9 [facility] [address] [id number] [address] [place] [address] 28 Jul, 2019 Lumbar radiculopathy, chroni c M54.16 [facility] [address] [id number] [address] [place] [address] 28 Jul, 2019 Back pain M54.9 [facility] [address] [id number] [address] [place] [address] 07 Jul, 2019 Encounter for Medicare annua wellness exam Z00.00 ; COPD (chronic obstructive [...] diabetes mellitus with other specified complication E11.69 [place] [address] [id number] [address] [place] [address] Jul, Back pain M54.9 [place] [address] [id number] [address] [place] [address] Jul, Anxiety F41.9 [place] [address] [id number] [address] [place] [address] May, [place] [address] [facility] [id number] [address] [place] [address] May, Lumbar radiculopathy, chroni c M54.16 [place] [address] [id number] [address] [place] [address] May, Back pain M54.9 [place] [address] [id number] [address] [place] [address] May, [place] [address] [facility] [id number] [address] [place] [address] May, Back pain M54.9 and Anxiety F41.9 [place] [address] [facility] [id number] [address] [place] [address] May, [place] [address] [id number] [address] [place] [address] May, Type 2 diabetes mellitus wit h diabetic peripheral angiopathy without gangrene E11.51 ; Arthritis M19.90 ; ED (erectile dysfunction) of organic origin N52.9 ; Morbid (severe) obesity due to excess calories E66.01 and Lumbar radiculopathy, chronic M54.16 [place] [address] [id number] [address] [place] [address] May, Diabetes E11.9 [facility] [address] [id number] [address] [place] [address] Apr, [facility] [address] [id number] [address] [place] [address] Apr, Back pain M54.9 [facility] [address] [facility] [id number] [address] [place] [address] Apr, [facility] [address] [id number] [address] [place] [address] Apr, Anxiety F41.9 [facility] [address] [id number] [address] [place] [address] Apr, Back pain M54.9 and Lumbar r adiculopathy, chronic M54.16 [facility] [address] [facility] [id number] [address] [place] [address] Apr, Back pain M54.9 ; Anxiety F4 1.9 and Lumbar radiculopathy, chronic M54.16 [facility] [address] [facility] [id number] [address] [place] [address] Mar, [facility] [address] [facility] [id number] [address] [place] [address] Mar, [facility] [address] [facility] [id number] [address] [place] [address] Mar, Back pain M54.9 [facility] [address] [facility] [id number] [address] [place] [address] Mar, [facility] [address] [facility] [id number] [address] [place] [address] Feb, Type 2 diabetes mellitus wit h diabetic peripheral angiopathy without gangrene E11.51 ; Lumbar radiculopathy, chronic M54.16 ; ED (erectile dysfunction) of organic origin N52.9 ; Encounter for immunization Z23 ; COPD (chronic obstructive pulmonary disease) J44.9 and Anxiety F41.9 [facility] [address] [id number] [address] [place] [address] Feb, Back pain M54.9 [facility] [address] [id number] [address] [place] [address] Feb, [facility] [address] [id number] [address] [place] [address] Feb, [facility] [address] [id number] [address] [place] [address] Feb, [facility] [address] [id number] [address] [place] [address] Feb, Back pain M54.9 [facility] [address] [id number] [address] [place] [address] Feb, [facility] [address] [id number] [address] [place] [address] Jan, Anxiety F41.9 [facility] [address] [id number] [address] [place] [address] Jan, Anxiety F41.9 [facility] [address] [id number] [address] [place] [address] Jan, [facility] [address] [id number] [address] [place] [address] Jan, [facility] [address] [id number] [address] [place] [address] Jan, Back pain M54.9 [facility] [address] [id number] [address] [place] [address] Jan, [facility] [address] [id number] [address] [place] [address] Dec, Acute non-recurrent frontal sinusitis J01.10 [facility] [address] [id number] [address] [place] [address] Dec, Acute non-recurrent frontal sinusitis J01.10 [facility] [address] [id number] [address] [place] [address] Dec, Type 2 diabetes mellitus wit h diabetic peripheral angiopathy without gangrene E11.51 ; Lumbar radiculopathy, chronic M54.16 ; Recurrent major depressive disorder, in full remission F33.42 and Anxiety F41.9 [facility] [address] [id number] [address] [place] [address] Dec, [facility] [address] [id number] [address] [place] [address] Nov, Anxiety F41.9 [facility] [address] [id number] [address] [place] [address] Nov, [facility] [address] [id number] [address] [place] [address] Nov, Back pain M54.9 [facility] [address] [id number] [address] [place] [address] Nov, [facility] [address] [id number] [address] [place] [address] Nov, Back pain M54.9 [facility] [address] [id number] [address] [place] [address] Nov, Anxiety F41.9 [facility] [address] [id number] [address] [place] [address] Nov, [facility] [address] [id number] [address] [place] [address] Oct, Back pain M54.9 [facility] [address] [id number] [address] [place] [address] Oct, [facility] [address] [id number] [address] [place] [address] Oct, [facility] [address] [id number] [address] [place] [address] Oct, [facility] [address] [id number] [address] [place] [address] September, Back pain M54.9 [facility] [address] [id number] [address] [place] [address] September, [facility] [address] [id number] [address] [place] [address] September, [facility] [address] [id number] [address] [place] [address] September, [facility] [address] [id number] [address] [place] [address] Aug, Back pain M54.9 [facility] [address] [id number] [address] [place] [address] Aug, Anxiety F41.9 [facility] [address] [id number] [address] [place] [address] Aug, [facility] [address] [facility] [id number] [address] [place] [address] Aug, Pressure ulcer of other site , stage 3 L89.893 and COPD (chronic obstructive pulmonary disease) J44.9 [facility] [address] [facility] [id number] [address] [place] [address] Aug, History of smoking Z87.891 [facility] [address] [id number] [address] [place] [address] Jul, Type 2 diabetes mellitus wit h diabetic peripheral angiopathy without gangrene E11.51 [facility] [address] [id number] [address] [place] [address] Jul, Back pain M54.9 [facility] [address] [id number] [address] [place] [address] Jul, Anxiety F41.9 [facility] [address] [id number] [address] [place] [address] Jul, [facility] [address] [facility] [id number] [address] [place] [address] Jul, Back pain M54.9 [facility] [address] [id number] [address] [place] [address] 12 Jul, 2018 Back pain M54.9 [facility] [address] [id number] [address] [place] [address] Jul, Lumbar radiculopathy, chroni c M54.16 ; Hypertension I10 and Type 2 diabetes mellitus with diabetic peripheral angiopathy without gangrene E11.51 [facility] [address] [id number] [address] [place] [address] Jul, Back pain M54.9 [facility] [address] [id number] [address] [place] [address] Jul, Back pain M54.9 and Anxiety F41.9 [place] [address] [id number] [address] [place] [address] Jul, [facility] [address] [id number] [address] [place] [address] May, Back pain M54.9 and Anxiety F41.9 [facility] [address] [id number] [address] [place] [address] May, [facility] [address] [id number] [address] [place] [address] Apr, Radiculopathy of lumbar rhiannon on M54.16 ; Back pain M54.9 and Anxiety F41.9 [facility] [address] [id number] [address] [place] [address] Apr, Diabetes E11.9 ; Muscle spas m M62.838 and Lumbar radiculopathy, chronic M54.16 [facility] [address] [id number] [address] [place] [address] Apr, [facility] [address] [id number] [address] [place] [address] Apr, [facility] [address] [facility] [id number] [address] [place] [address] 30 Mar, 2018 Back pain M54.9 and Anxiety F41.9 [facility] [address] [facility] [id number] [address] [place] [address] Mar, [facility] [address] [facility] [id number] [address] [place] [address] Mar, [facility] [address] [facility] [id number] [place] [address] Mar, [facility] [address] [facility] [id number] [address] [place] [address] Mar, Encounter for immunization Z 23 [facility] [address] [facility] [id number] [place] [address] 31 Feb, 2018 Back pain M54.9 and Anxiety F41.9 [place] [address] [place] [id number] [place] [address] 04 Feb, 2018 Back pain M54.9 and Anxiety F41.9 [place] [address] [place] [id number] [address] [place] [address] 06 Jan, 2018 Back pain M54.9 and Anxiety F41.9 [place] [address] [facility] [id number] [place] [address] Jan, [place] [address] [place] [id number] [address] [place] [address] Dec, [facility] [address] [facility] [id number] [address] [place] [address] Dec, Back pain M54.9 and Anxiety F41.9 [place] [address] [place] [id number] [place] [address] 13 Dec, 2017 Diabetes E11.9 ; Type 2 diab etes mellitus with diabetic peripheral angiopathy without gangrene E11.51 ; Lumbar radiculopathy, chronic M54.16 ; COPD (chronic obstructive pulmonary disease) J44.9 and Anxiety F41.9 [facility] [address] [facility] [id number] [address] [place] [address] Dec, Back pain M54.9 and Anxiety F41.9 [facility] [address] [facility] [id number] [address] [place] [address] Nov, Back pain M54.9 and Anxiety F41.9 [facility] [address] [facility] [id number] [address] [place] [address] Oct, [facility] [address] [facility] [id number] [address] [place] [address] Oct, Back pain M54.9 and Anxiety F41.9 [place] [address] [facility] [id number] [address] [place] [address] September, Anxiety F41.9 and Back pain M54.9 [place] [address] [facility] [id number] [address] [place] [address] September, Diabetes E11.9 ; Hypertensio n I10 ; COPD (chronic obstructive pulmonary disease) J44.9 and Lumbar radiculopathy, chronic M54.16 [place] [address] [facility] [id number] [address] [place] [address] September, Anxiety F41.9 [place] [address] [facility] [id number] [address] [place] [address] Aug, [place] [address] [place] [id number] [address] [place] [address] Aug, [facility] [address] [facility] [id number] [address] [place] [address] Aug, Anxiety F41.9 and Back pain M54.9 [place] [address] [facility] [id number] [address] [place] [address] Aug, Medicare annual wellness vis it, initial [...] and longterm current use of insulin Z79.4 [facility] [address] [id number] [address] [place] [address] Jul, Back pain M54.9 [facility] [address] [id number] [address] [place] [address] Jul, [facility] [address] [id number] [address] [place] [address] Jul, Anxiety F41.9 and Back pain M54.9 [facility] [address] [id number] [address] [place] [address] Jul, Diabetes E11.9 [facility] [address] [id number] [address] [place] [address] May, [facility] [address] [id number] [address] [place] [address] May, Diabetes E11.9 ; Anxiety F41 .9 ; Back pain M54.9 and COPD (chronic obstructive pulmonary disease) J44.9 [facility] [address] [id number] [address] [place] [address] May, Back pain M54.9 [facility] [address] [id number] [address] [place] [address] May, [facility] [address] [id number] [address] [place] [address] Apr, Back pain M54.9 [facility] [address] [id number] [address] [place] [address] Mar, Back pain M54.9 [facility] [address] [id number] [address] [place] [address] Mar, [facility] [address] [id number] [address] [place] [address] 16 Mar, 2017 [facility] [address] [id number] [address] [place] [address] 14 Mar, 2017 Radiculopathy of lumbar rhiannon on M54.16 [facility] [address] [id number] [address] [place] [address] 13 Mar, 2017 [facility] [address] [id number] [address] [place] [address] 07 Mar, 2017 Encounter for immunization Z 23 and Lumbar radiculopathy, chronic M54.16 [facility] [address] [id number] [address] [place] [address] Mar, Back pain M54.9 and Anxiety F41.9 [facility] [address] [id number] [address] [place] [address] 10 Feb, 2017 Acute bilateral low back boy n with left-sided sciatica M54.42 and Acute bilateral low back pain with right-sided sciatica M54.41 [facility] [address] [id number] [address] [place] [address] 06 Feb, 2017 [facility] [address] [id number] [address] [place] [address] Feb, Back pain M54.9 [facility] [address] [id number] [address] [place] [address] 05 Jan, 2017 Back pain M54.9 and Anxiety F41.9 [facility] [address] [id number] [address] [place] [address] 05 Jan, 2017 Diabetes E11.9 [facility] [address] [id number] [address] [place] [address] Dec, Diabetes E11.9 ; Back pain M 54.9 ; Anxiety F41.9 and Insulin long- term use Z79.4 [facility] [address] [id number] [address] [place] [address] Dec, Anxiety F41.9 [facility] [address] [id number] [address] [place] [address] Dec, Back pain M54.9 [facility] [address] [id number] [address] [place] [phone] Nov, Back pain M54.9 [facility] [address] [id number] [address] [place] [phone] Oct, Back pain M54.9 and Anxiety F41.9 [facility] [address] [id number] [address] [place] [id number] September, Back pain M54.9 [facility] [address] [id number] [address] [place] [phone] September, Back pain M54.9 and Anxiety F41.9 [facility] [address] [id number] [address] [place] [phone] Aug, Diabetes E11.9 ; Anxiety F41 .9 ; Back pain M54.9 and PAD (peripheral artery disease) I73.9 [facility] [address] [id number] [address] [place] [phone] Aug, Anxiety F41.9 [facility] [address] [id number] [address] [place] [id number] 14 Aug, 2016 Back pain M54.9 [facility] [address] [id number] [address] [place] [phone] Jul, Back pain M54.9 [facility] [address] [id number] [address] [place] [phone] 13 Jul, 2016 Back pain M54.9 [facility] [address] [id number] [address] [place] [phone] 23 Jul, 2016 Back pain M54.9 [facility] [address] [id number] [address] [place] [id number] 16 Jul, 2016 Dorsalgia M54.9 [facility] [address] [id number] [address] [place] [phone] 14 Jul, 2016 [facility] [address] [id number] [address] [place] [phone] May, Back pain M54.9 [facility] [address] [id number] [address] [place] [phone] May, Diabetes E11.9 ; Anxiety F41 .9 ; Port catheter in place Z95.828 ; Encounter for immunization Z23 and Insulin long-term use Z79.4 [facility] [address] [id number] [address] [place] [phone] Apr, Back pain M54.9 [facility] [address] [id number] [address] [place] [id number] Apr, Back pain M54.9 [facility] [address] [id number] [address] [place] [id number] Apr, [facility] [address] [id number] [address] [place] [phone] Apr, Back pain M54.9 [facility] [address] [id number] [address] [place] [id number] Mar, COPD (chronic obstructive pu lmonary disease) J44.9 [facility] [address] [id number] [address] [place] [id number] Feb, [facility] [address] [id number] [address] [place] [id number] 30 Jan, 2016 [facility] [address] [id number] [address] [place] [phone] Jan, [facility] [address] [id number] [address] [place] [phone] 07 Jan, 2016 [facility] [address] [id number] [address] [place] [id number] 02 Jan, 2016 [facility] [address] [id number] [address] [place] [phone] Dec, Diabetes E11.9 ; Hypoxia R09 .02 and Back pain M54.9 [facility] [address] [id number] [address] [place] [id number] Dec, [facility] [address] [id number] [address] [place] [phone] Nov, [facility] [address] [id number] [address] [place] [id number] Oct, Anxiety F41.9 [facility] [address] [id number] [address] [place] [id number] Oct, Back pain M54.9 [facility] [address] [id number] [address] [place] [address] September, Back pain M54.9 [facility] [address] [id number] [address] [place] [address] September, Diabetes E11.9 [facility] [address] [id number] [address] [place] [address] September, [facility] [address] [id number] [address] [place] [address] September, Diabetes E11.9 ; Insulin sarai g-term use Z79.4 and Back pain M54.9 [facility] [address] [id number] [address] [place] [address] Aug, Back pain M54.9 [facility] [address] [id number] [address] [place] [address] Aug, Back pain M54.9 ; Anxiety F4 1.9 and Arthropathy, unspecified M12.9 [facility] [address] [id number] [address] [place] [address] Jul, Back pain M54.9 [facility] [address] [id number] [address] [place] [address] Jul, Anxiety F41.9 [facility] [address] [facility] [id number] [address] [place] [address] Jul, Back pain M54.9 [facility] [address] [facility] [id number] [address] [place] [address] Jul, [facility] [address] [facility] [id number] [address] [place] [address] Jul, [facility] [address] [facility] [id number] [address] [place] [address] May, Back pain M54.9 ; Diabetes E 11.9 ; Insulin long-term use Z79.4 ; COPD (chronic obstructive pulmonary disease) J44.9 and Hypertension I10 [facility] [address] [facility] [id number] [address] [place] [address] May, Chronic pain G89.29 [facility] [address] [facility] [id number] [address] [place] [address] Apr, [facility] [address] [facility] [id number] [address] [place] [address] Apr, [facility] [address] [facility] [id number] [address] [place] [address] Mar, [facility] [address] [facility] [id number] [address] [place] [address] Mar, Encounter for immunization Z 23 and Diabetes E11.9 [facility] [address] [facility] [id number] [address] [place] [address] Feb, [facility] [address] [facility] [id number] [address] [place] [address] Feb, [facility] [address] [facility] [id number] [address] [place] [address] 23 Jan, 2015 [facility] [address] [facility] [id number] [address] [place] [address] 16 Jan, 2015 [facility] [address] [facility] [id number] [address] [place] [address] Dec, [facility] [address] [id number] [address] [place] [address], [place] [address] Dec, [facility] [address] [id number] [address] [place] [address], [place] [address] Dec, Unspecified arthropathy, sit e unspecified 716.90 and Diabetes mellitus type 2, uncontrolled 250.02 [facility] [address] [id number] [address] [place] [address], [place] [address] Dec, [facility] [address] [id number] [address] [place] [address], [place] [address] Nov, [facility] [address] [id number] [address] [place] [address], [place] [address] Oct, [facility] [address] [id number] [address] [place] [address], [place] [address] September, [facility] [address] [id number] [address] [place] [address], [place] [address] September, [facility] [address] [id number] [address] [place] [address], [place] [address] September, [facility] [address] [id number] [address] [place] [address], [place] [address] September, [facility] [address] [id number] [address] [place] [address], [place] [address] Aug, [facility] [address] [id number] [address] [place] [address], [place] [address] Aug, [facility] [address] [id number] [address] [place] [address], [place] [address] Jul, [facility] [address] [id number] [address] [place] [address], [place] [address] 18 Jul, 2014 [facility] [address] [id number] [address] [place] [address], [place] [address] 16 Jul, 2014 [facility] [address] [id number] [address] [place] [address], [place] [address] 16 Jul, 2014 [facility] [address] [id number] [facility] [place] [address] 16 Jul, 2014 [facility] [address] [id number] [address] [place] [address], [place] [address] 16 Jul, 2014 [facility] [address] [id number] [address] [place] [address], [place] [address] 16 Jul, 2014 [facility] [address] [id number] [address] [place] [address], [place] [address] 16 Jul, 2014 [facility] [address] [id number] [address] [place] [address], [place] [address] 16 Jul, 2014 [facility] [address] [id number] [address] [place] [address], [place] [address] 13 Jul, 2014 [facility] [address] [id number] [address] [place] [address], [place] [address] 13 Jul, 2014 [facility] [address] [id number] [address] [place] [address], [place] [address] 09 Jul, 2014 [facility] [address] [id number] [address] [place] [address], [place] [address] 09 Jul, 2014 [facility] [address] [id number] [address] [place] [address], [place] [address] 17 Jul, 2014 [facility] [address] [id number] [address] [place] [address], [place] [address] 17 Jul, 2014 [facility] [address] [id number] [address] [place] [address], [place] [address] 16 Jul, 2014 [facility] [address] [id number] [address] [place] [address], [place] [address] 16 Jul, 2014 [facility] [address] [id number] [address] [place] [address], [place] [address] 16 Jul, 2014 [facility] [address] [id number] [address] [place] [address], [place] [address] 16 Jul, 2014 [facility] [address] [id number] [address] [place] [address], [place] [address] 16 Jul, 2014 [facility] [address] [id number] [address] [place] [address], [place] [address] Jul, 2014 [facility] [address] [id number] [address] [place] [address], [place] [address] 16 Jul, 2014 [facility] [address] [id number] [address] [place] [address], [place] [address] Jul, 2014 [facility] [address] [id number] [address] [place] [address], [place] [address] Jul, 2014 [facility] [address] [id number] [address] [place] [address], [place] [address] Jul, 2014 [facility] [address] [id number] [address] [place] [address], [place] [address] Jul, 2014 [facility] [address] [id number] [address] [place] [address], [place] [address] Jul, 2014 [facility] [address] [id number] [address] [place] [address], [place] [address] Jul, 2014 [facility] [address] [id number] [address] [place] [address], [place] [address] Jul, 2014 [facility] [address] [id number] [address] [place] [address] May, [facility] [address] [id number] [address] [place] [address] May, [facility] [address] [id number] [address] [place] [address], [place] [address] May, [facility] [address] [id number] [address] [place] [address], [place] [address] May, [facility] [address] [id number] [address] [place] [address] May, [facility] [address] [id number] [address] [place] [address] May, [facility] [address] [id number] [address] [place] [address], [place] [address] May, [facility] [address] [id number] [address] [place] [address], [place] [address] May, [facility] [address] [id number] [address] [place] [address], [place] [address] May, [facility] [address] [id number] [address] [place] [address], [place] [address] May, [facility] [address] [id number] [address] [place] [address], [place] [address] Apr, [facility] [address] [id number] [address] [place] [address], [place] [address] Apr, [facility] [address] [id number] [address] [place] [address], [place] [address] Apr, [facility] [address] [id number] [address] [place] [address], [place] [address] Apr, [facility] [address] [id number] [address] [place] [address], [place] [address] Apr, [facility] [address] [id number] [address] [place] [address], [place] [address] Apr, [facility] [address] [id number] [address] [place] [address], [place] [address] Mar, [facility] [address] [id number] [address] [place] [address], [place] [address] Mar, [facility] [address] [id number] [address] [place] [address], [place] [address] Mar, [facility] [address] [id number] [address] [place] [address], [place] [address] Mar, [facility] [address] [id number] [address] [place] [address], [place] [address] Mar, [facility] [address] [id number] [address] [place] [address], [place] [address] Mar, [facility] [address] [id number] [address] [place] [address], [place] [address] Mar, [facility] [address] [id number] [address] [place] [address], [place] [address] Mar, [facility] [address] [id number] [address] [place] [address], [place] [address] Mar, [facility] [address] [id number] [address] [place] [address], [place] [address] Mar, [facility] [address] [id number] [address] [place] [address], [place] [address] Mar, [facility] [address] [id number] [address] [place] [address], [place] [address] Feb, [facility] [address] [id number] [address] [place] [address], [place] [address] Feb, [facility] [address] [id number] [address] [place] [address], [place] [address] Feb, [facility] [address] [id number] [address] [place] [address], [place] [address] Feb, [facility] [address] [id number] [address] [place] [address], [place] [address] Feb, [facility] [address] [id number] [address] [place] [address], [place] [address] Feb, [facility] [address] [id number] [address] [place] [address], [place] [address] Feb, [facility] [address] [id number] [address] [place] [address], [place] [address] Feb, [facility] [address] [id number] [address] [place] [address], [place] [address] Feb, [facility] [address] [id number] [address] [place] [address], [place] [address] Feb, [facility] [address] [id number] [facility] [place] [address] Jan, [facility] [address] [id number] [address] [place] [address], [place] [address] Jan, [facility] [address] [id number] [address] [place] [address], [place] [address] Jan, [facility] [address] [id number] [address] [place] [address], [place] [address] 16 Jan, 2014 [facility] [address] [id number] [address] [place] [address], [place] [address] Jan, [facility] [address] [id number] [address] [place] [address], [place] [address] Jan, [facility] [address] [id number] [address] [place] [address], [place] [address] Jan, [facility] [address] [id number] [address] [place] [address], [place] [address] Dec, [facility] [address] [id number] [address] [place] [address], [place] [address] Dec, [facility] [address] [id number] [address] [place] [address], [place] [address] Dec, [facility] [address] [id number] [address] [place] [address], [place] [address] Dec, [facility] [address] [id number] [address] [place] [address], [place] [address] Dec, [facility] [address] [id number] [address] [place] [address], [place] [address] Dec, [facility] [address] [id number] [address] [place] [address], [place] [address] Dec, [facility] [address] [id number] [address] [place] [address], [place] [address] Dec, [facility] [address] [id number] [address] [place] [address], [place] [address] Oct, [facility] [address] [id number] [address] [place] [address], [place] [address] Oct, [facility] [address] [id number] [address] [place] [address], [place] [address] September, [facility] [address] [id number] [address] [place] [address], [place] [address] September, [facility] [address] [id number] [address] [place] [address], [place] [address] September, [facility] [address] [id number] [address] [place] [address], [place] [address] September, [facility] [address] [id number] [address] [place] [address], [place] [address] September, [facility] [address] [id number] [address] [place] [address], [place] [address] September, [facility] [address] [id number] [address] [place] [address], [place] [address] September, [facility] [address] [id number] [address] [place] [address], [place] [address] Aug, [facility] [address] [id number] [address] [place] [address], [place] [address] Aug, [facility] [address] [id number] [address] [place] [address], [place] [address] Jul, [facility] [address] [id number] [address] [place] [address], [place] [address] Jul, [facility] [address] [id number] [address] [place] [address], [place] [address] Jul, [facility] [address] [id number] [address] [place] [address], [place] [address] 17 Jul, 2013 [facility] [address] [id number] [address] [place] [address], [place] [address] 14 Jul, 2013 [facility] [address] [id number] [address] [place] [address], [place] [address] 14 Jul, 2013 [facility] [address] [id number] [address] [place] [address], [place] [address] 03 Jul, 2013 [facility] [address] [id number] [address] [place] [address], [place] [address] 03 Jul, 2013 [facility] [address] [id number] [address] [place] [address], [place] [address] 15 May, 2013 [facility] [address] [id number] [address] [place] [address], [place] [address] 15 May, 2013 [facility] [address] [id number] [address] [place] [address], [place] [address] May, [facility] [address] [id number] [address] [place] [address], [place] [address] May, [facility] [address] [id number] [address] [place] [address], [place] [address] Apr, [facility] [address] [id number] [address] [place] [address], [place] [address] Mar, [facility] [address] [id number] [address] [place] [address], [place] [address] Mar, [facility] [address] [id number] [address] [place] [address], [place] [address] Mar, [facility] [address] [id number] [address] [place] [address], [place] [address] Mar, [facility] [address] [id number] [address] [place] [address], [place] [address] Mar, [facility] [address] [id number] [address] [place] [address], [place] [address] 18 Mar, 2013 [facility] [address] [id number] [address] [place] [address], [place] [address] 18 Mar, 2013 [facility] [address] [id number] [address] [place] [address], [place] [address] Mar, [facility] [address] [id number] [address] [place] [address], [place] [address] Mar, [facility] [address] [id number] [address] [place] [address], [place] [address] Mar, [facility] [address] [id number] [address] [place] [address], [place] [address] Mar, [facility] [address] [id number] [address] [place] [address], [place] [address] Mar, [facility] [address] [id number] [address] [place] [address], [place] [address] Feb, [facility] [address] [id number] [address] [place] [address], [place] [address] Feb, [facility] [address] [id number] [address] [place] [address], [place] [address] Feb, [facility] [address] [id number] [address] [place] [address], [place] [address] Feb, [facility] [address] [id number] [address] [place] [address], [place] [address] Feb, [facility] [address] [id number] [address] [place] [address], [place] [address] Jan, [facility] [address] [id number] [address] [place] [address], [place] [address] Dec, [facility] [address] [id number] [address] [place] [address], [place] [address] Dec, [facility] [address] [id number] [address] [place] [address], [place] [address] Dec, [facility] [address] [id number] [address] [place] [address], [place] [address] Nov, [facility] [address] [id number] [address] [place] [address], [place] [address] Nov, [facility] [address] [id number] [address] [place] [address], [place] [address] 15 Nov, 2012 [facility] [address] [id number] [address] [place] [address], [place] [address] Oct, [facility] [address] [id number] [address] [place] [address], [place] [address] Oct, [facility] [address] [id number] [address] [place] [address], [place] [address] Oct, [facility] [address] [id number] [address] [place] [address], [place] [address] September, [facility] [address] [id number] [address] [place] [address], [place] [address] September, [facility] [address] [id number] [address] [place] [address], [place] [address] September, [facility] [address] [id number] [address] [place] [address], [place] [address] September, [facility] [address] [id number] [address] [place] [address], [place] [address] September, [facility] [address] [id number] [address] [place] [address], [place] [address] Aug, [facility] [address] [id number] [address] [place] [address], [place] [address] Aug, [facility] [address] [id number] [address] [place] [address], [place] [address] Aug, [facility] [address] [id number] [address] [place] [address], [place] [address] Jul, [facility] [address] [id number] [address] [place] [address], [place] [address] Jul, [facility] [address] [id number] [address] [place] [address], [place] [address] Jul, [facility] [address] [id number] [address] [place] [address], [place] [address] Jul, [facility] [address] [id number] [address] [place] [address], [place] [address] Jul, [facility] [address] [id number] [address] [place] [address], [place] [address] Jul, [facility] [address] [id number] [address] [place] [address], [place] [address] Jul, [facility] [address] [id number] [address] [place] [address], [place] [address] May, [facility] [address] [id number] [address] [place] [address], [place] [address] May, [facility] [address] [id number] [address] [place] [address], [place] [address] May, [facility] [address] [id number] [address] [place] [address], [place] [address] Apr, [facility] [address] [id number] [address] [place] [address], [place] [address] Apr, [facility] [address] [id number] [address] [place] [address], [place] [address] Apr, [facility] [address] [id number] [address] [place] [address], [place] [address] Apr, [facility] [address] [id number] [address] [place] [address], [place] [address] Apr, [facility] [address] [id number] [address] [place] [address], [place] [address] 29 Mar, 2012 [facility] [address] [id number] [address] [place] [address], [place] [address] 29 Mar, 2012 [facility] [address] [id number] [address] [place] [address], [place] [address] 15 Mar, 2012 [facility] [address] [id number] [address] [place] [address], [place] [address] 15 Mar, 2012 [facility] [address] [id number] [address] [place] [address], [place] [address] Feb, [facility] [address] [id number] [address] [place] [address], [place] [address] Feb, [facility] [address] [id number] [address] [place] [address], [place] [address] Feb, [facility] [address] [id number] [address] [place] [address], [place] [address] Feb, [facility] [address] [id number] [address] [place] [address], [place] [address] Feb, [facility] [address] [id number] [address] [place] [address], [place] [address] Jan, [facility] [address] [id number] [address] [place] [address], [place] [address] Dec, [facility] [address] [id number] [address] [place] [address], [place] [address] Dec, [facility] [address] [id number] [address] [place] [address], [place] [address] Dec, [facility] [address] [id number] [address] [place] [address], [place] [address] Nov, [facility] [address] [id number] [address] [place] [address], [place] [address] Nov, [facility] [address] [id number] [address] [place] [address], [place] [address] Nov, [facility] [address] [id number] [address] [place] [address], [place] [address] Oct, [facility] [address] [id number] [address] [place] [address], [place] [address] Oct, [facility] [address] [id number] [address] [place] [address], [place] [address] Oct, [facility] [address] [id number] [address] [place] [address], [place] [address] Oct, [facility] [address] [id number] [address] [place] [address], [place] [address] September, [facility] [address] [id number] [address] [place] [address], [place] [address] September, [facility] [address] [id number] [address] [place] [address], [place] [address] Aug, [facility] [address] [id number] [address] [place] [address], [place] [address] Aug, [facility] [address] [id number] [address] [place] [address], [place] [address] Aug, [facility] [address] [id number] [address] [place] [address], [place] [address] Aug, [facility] [address] [id number] [address] [place] [address], [place] [address] Aug, [facility] [address] [id number] [address] [place] [address], [place] [address] Aug, [facility] [address] [id number] [address] [place] [address], [place] [address] Aug, [facility] [address] [id number] [address] [place] [address], [place] [address] Jul, [facility] [address] [id number] [address] [place] [address], [place] [address] Jul, [facility] [address] [id number] [address] [place] [address], [place] [address] Jul, [facility] [address] [id number] [address] [place] [address], [place] [address] May, [facility] [address] [id number] [address] [place] [address], [place] [address] May, [facility] [address] [id number] [address] [place] [address], [place] [address] May, [facility] [address] [id number] [address] [place] [address] Apr, [facility] [address] [id number] [address] [place] [address] Apr, [facility] [address] [id number] [address] [place] [address] Mar, [facility] [address] [id number] [address] [place] [address] Mar, [facility] [address] [id number] [address] [place] [address] Mar, [facility] [address] [id number] [address] [place] [address] Mar, [facility] [address] [id number] [address] [place] [address] Mar, [facility] [address] [id number] [address] [place] [address] Mar, [facility] [address] [id number] [address] [place] [address] Feb, [facility] [address] [id number] [address] [place] [address] Feb, [facility] [address] [id number] [address] [place] [address] Feb, IMMUNIZATIONS No Known Immunizations SOCIAL HISTORY [...] infections x 3 2016 Hospitalization History [facility] - right big t oe removed 2019
--- OUTSIDE RECORDS SUMMARY | 2020-01-03 08:06 | XMS REPORT ---
Author Author Tra SILVERIO Organization [facility] Address [address] [place] [address] Care Team Providers Care Windows Systems Admin Name Role Phone FERNY SILVERIO Unavailable PROBLEMS Type Condition ICD9-CM Code IOL34-GZ Code Onset Dates Condition S tatus SNOMED Code Problem Hypertension I10 Active 5191755 3 Problem Hypoxia R09.02 Active 588464569 Problem COPD (chronic obstructive pulmonary disease) J44.9 Active 25258611 Problem Lumbar radiculopathy, chronic M54.16 Active 006451372 Problem [facility] current use of insulin Z79.4 Active 263160016 Problem Recurrent major depressive disorder, in full remission F33.42 Active 992021098 Problem Hyperlipidemia, unspecified E78.5 Ac tive 18820825 Problem PAD (peripheral artery disease) I73.9 Active 533411076 Problem Type 2 diabetes mellitus with other specified complication E11.69 Active 415446897871 Problem Anxiety F41.9 Active 21053371 Problem Type 2 diabetes mellitus wit h diabetic peripheral angiopathy without gangrene E11.51 Active 244337022 Problem ED (erectile dysfunction) of organic origin N52.9 Active 114776420 Problem Arthritis M19.90 Active 7811752 Problem Morbid (severe) obesity due to excess calories E66 .01 Active 090258300 ALLERGIES No Information ENCOUNTERS Encounter Location Date Diagnosis [address] [id number] [address] Nov, Anxiety F41.[address] [id number], [place] [address] Nov, Back pain M54.9 [facility] [address] [facility] [id number] [address] [place] [address] Nov, Back pain M54.9 [facility] [address] [facility] [id number] [address] [place] [address] Nov, [address] [id number] [place] [address] Oct, Anxiety F41.[address] [id number], [place] [address] Oct, [facility] [address] [id number] [address] [place] [id number] 17 Oct, 2019 [facility] [address] [id number] [address] [place] [id number] 15 Oct, 2019 Back pain M54.9 and Lumbar r adiculopathy, chronic M54.16 [facility] [address] [id number] [address] [place] [id number] 04 Oct, 2019 Lumbar radiculopathy, chroni c M54.16 [facility] [address] [id number] [address] [place] [id number] 03 Oct, 2019 Anxiety F41.[address] [id number], [place] [address] Oct, [facility] [address] [id number] [address] [place] [phone] September, Back pain M54.9 and Lumbar r adiculopathy, chronic M54.[address] [id number], [place] [address] September, Anxiety F41.9 [place] [id number] [address] Aug, [facility] [address] [id number] [address] [place] [address] Aug, Back pain M54.9 and Lumbar r adiculopathy, chronic M54.16 [facility] [address] [id number] [address] [place] [id number] Aug, Anxiety F41.9 ; Back pain M5 4.9 and Lumbar radiculopathy, chronic M54.16 [facility] [address] [id number] [address] [place] [id number] 09 Aug, 2019 Lumbar radiculopathy, chroni c M54.16 ; Anxiety F41.9 ; Type 2 diabetes mellitus with other specified complication E11.69 and Hypertension I10 [facility] [address] [id number] [address] [place] [id number] 30 Jul, 2019 [facility] [address] [id number] [address] [place] [id number] 27 Jul, 2019 Lumbar radiculopathy, chroni c M54.16 ; Back pain M54.9 and Anxiety F41.9 [facility] [address] [id number] [address] [place] [id number] 23 Jul, 2019 [facility] [address] [id number] [address] [place] [id number] 13 Jul, 2019 Anxiety F41.9 [facility] [address] [id number] [address] [place] [id number] 12 Jul, 2019 Anxiety F41.9 [facility] [address] [id number] [address] [place] [id number] 02 Jul, 2019 Back pain M54.9 [facility] [address] [id number] [address] [place] [id number] 02 Jul, 2019 Back pain M54.9 [facility] [address] [id number] [address] [place] [id number] 28 Jul, 2019 Lumbar radiculopathy, chroni c M54.16 [facility] [address] [id number] [address] [place] [id number] 28 Jul, 2019 Back pain M54.9 [facility] [address] [id number] [address] [place] [id number] 07 Jul, 2019 Encounter for Medicare annua [...] diabetes mellitus with other specified complication E11.69 [place] [address] [id number] [address] [place] [id number] Jul, Back pain M54.9 [place] [address] [id number] [address] [place] [address] Jul, Anxiety F41.9 [place] [address] [id number] [address] [place] [address] May, [place] [address] [facility] [id number] [address] [place] [address] May, Lumbar radiculopathy, chroni c M54.16 [place] [address] [id number] [address] [place] [id number] May, Back pain M54.9 [place] [address] [id number] [address] [place] [id number] May, [place] [address] [facility] [id number] [address] [place] [phone] May, Back pain M54.9 and Anxiety F41.9 [place] [address] [facility] [id number] [address] [place] [phone] May, [place] [address] [id number] [address] [place] [address] May, Type 2 diabetes mellitus wit h diabetic peripheral angiopathy without gangrene E11.51 ; Arthritis M19.90 ; ED (erectile dysfunction) of organic origin N52.9 ; Morbid (severe) obesity due to excess calories E66.01 and Lumbar radiculopathy, chronic M54.16 [place] [address] [id number] [address] [place] [address] May, Diabetes E11.9 [facility] [address] [id number] [address] [place] [address] Apr, [facility] [address] [id number] [address] [place] [phone] Apr, Back pain M54.9 [facility] [address] [facility] [id number] [address] [place] [id number] Apr, [facility] [address] [id number] [address] [place] [address] Apr, Anxiety F41.9 [facility] [address] [id number] [address] [place] [address] Apr, Back pain M54.9 and Lumbar r adiculopathy, chronic M54.16 [facility] [address] [facility] [id number] [address] [place] [id number] Apr, Back pain M54.9 ; Anxiety F4 1.9 and Lumbar radiculopathy, chronic M54.16 [facility] [address] [facility] [id number] [address] [place] [id number] Mar, [facility] [address] [facility] [id number] [address] [place] [phone] Mar, [facility] [address] [facility] [id number] [address] [place] [id number] Mar, Back pain M54.9 [facility] [address] [facility] [id number] [address] [place] [phone] Mar, [facility] [address] [facility] [id number] [address] [place] [id number] Feb, Type 2 diabetes mellitus wit h diabetic peripheral angiopathy without gangrene E11.51 ; Lumbar radiculopathy, chronic M54.16 ; ED (erectile dysfunction) of organic origin N52.9 ; Encounter for immunization Z23 ; COPD (chronic obstructive pulmonary disease) J44.9 and Anxiety F41.9 [facility] [address] [id number] [address] [place] [id number] Feb, Back pain M54.9 [facility] [address] [id number] [address] [place] [id number] Feb, [facility] [address] [id number] [address] [place] [id number] Feb, [facility] [address] [id number] [address] [place] [id number] Feb, [facility] [address] [id number] [address] [place] [id number] Feb, Back pain M54.9 [facility] [address] [id number] [address] [place] [id number] Feb, [facility] [address] [id number] [address] [place] [address] Jan, Anxiety F41.9 [facility] [address] [id number] [address] [place] [id number] Jan, Anxiety F41.9 [facility] [address] [id number] [address] [place] [id number] Jan, [facility] [address] [id number] [address] [place] [id number] Jan, [facility] [address] [id number] [address] [place] [id number] Jan, Back pain M54.9 [facility] [address] [id number] [address] [place] [id number] Jan, [facility] [address] [id number] [address] [place] [id number] Dec, Acute non-recurrent frontal sinusitis J01.10 [facility] [address] [id number] [address] [place] [address] Dec, Acute non-recurrent frontal sinusitis J01.10 [facility] [address] [id number] [address] [place] [address] Dec, Type 2 diabetes mellitus wit h diabetic peripheral angiopathy without gangrene E11.51 ; Lumbar radiculopathy, chronic M54.16 ; Recurrent major depressive disorder, in full remission F33.42 and Anxiety F41.9 [facility] [address] [id number] [address] [place] [address] Dec, [facility] [address] [id number] [address] [place] [id number] Nov, Anxiety F41.9 [facility] [address] [id number] [address] [place] [id number] Nov, [facility] [address] [id number] [address] [place] [id number] Nov, Back pain M54.9 [facility] [address] [id number] [address] [place] [id number] Nov, [facility] [address] [id number] [address] [place] [id number] Nov, Back pain M54.9 [facility] [address] [id number] [address] [place] [id number] Nov, Anxiety F41.9 [facility] [address] [id number] [address] [place] [id number] Nov, [facility] [address] [id number] [address] [place] [address] Oct, Back pain M54.9 [facility] [address] [id number] [address] [place] [id number] Oct, [facility] [address] [id number] [address] [place] [phone] Oct, [facility] [address] [id number] [address] [place] [id number] Oct, [facility] [address] [id number] [address] [place] [id number] September, Back pain M54.9 [facility] [address] [id number] [address] [place] [address] September, [facility] [address] [id number] [address] [place] [id number] September, [facility] [address] [id number] [address] [place] [address] September, [facility] [address] [id number] [address] [place] [id number] Aug, Back pain M54.9 [facility] [address] [id number] [address] [place] [id number] Aug, Anxiety F41.9 [facility] [address] [id number] [address] [place] [address] Aug, [facility] [address] [facility] [id number] [address] [place] [address] Aug, Pressure ulcer of other site , stage 3 L89.893 and COPD (chronic obstructive pulmonary disease) J44.9 [facility] [address] [facility] [id number] [address] [place] [address] Aug, History of smoking Z87.891 [facility] [address] [id number] [address] [place] [address] Jul, Type 2 diabetes mellitus wit h diabetic peripheral angiopathy without gangrene E11.51 [facility] [address] [id number] [address] [place] [address] Jul, Back pain M54.9 [facility] [address] [id number] [address] [place] [id number] Jul, Anxiety F41.9 [facility] [address] [id number] [address] [place] [id number] Jul, [facility] [address] [facility] [id number] [address] [place] [id number] Jul, Back pain M54.9 [facility] [address] [id number] [address] [place] [id number] 12 Jul, 2018 Back pain M54.9 [facility] [address] [id number] [address] [place] [address] Jul, Lumbar radiculopathy, chroni c M54.16 ; Hypertension I10 and Type 2 diabetes mellitus with diabetic peripheral angiopathy without gangrene E11.51 [facility] [address] [id number] [address] [place] [address] Jul, Back pain M54.9 [facility] [address] [id number] [address] [place] [id number] Jul, Back pain M54.9 and Anxiety F41.9 [place] [address] [id number] [address] [place] [id number] Jul, [facility] [address] [id number] [address] [place] [id number] May, Back pain M54.9 and Anxiety F41.9 [facility] [address] [id number] [address] [place] [id number] May, [facility] [address] [id number] [address] [place] [address] Apr, Radiculopathy of lumbar rhiannon on M54.16 ; Back pain M54.9 and Anxiety F41.9 [facility] [address] [id number] [address] [place] [address] Apr, Diabetes E11.9 ; Muscle spas m M62.838 and Lumbar radiculopathy, chronic M54.16 [facility] [address] [id number] [address] [place] [id number] Apr, [facility] [address] [id number] [address] [place] [address] Apr, [facility] [address] [facility] [id number] [address] [place] [id number] 30 Mar, 2018 Back pain M54.9 and Anxiety F41.9 [facility] [address] [facility] [id number] [address] [place] [id number] Mar, [facility] [address] [facility] [id number] [address] [place] [id number] Mar, [facility] [address] [facility] [id number] [place] [id number] Mar, [facility] [address] [facility] [id number] [address] [place] [id number] Mar, Encounter for immunization Z 23 [facility] [address] [facility] [id number] [place] [id number] 31 Feb, 2018 Back pain M54.9 and Anxiety F41.9 [place] [address] [place] [id number] [place] [id number] 04 Feb, 2018 Back pain M54.9 and Anxiety F41.9 [place] [address] [place] [id number] [address] [place] [id number] 06 Jan, 2018 Back pain M54.9 and Anxiety F41.9 [place] [address] [facility] [id number] [place] [phone] Jan, [place] [address] [place] [id number] [address] [place] [address] Dec, [facility] [address] [facility] [id number] [address] [place] [address] Dec, Back pain M54.9 and Anxiety F41.9 [place] [address] [place] [id number] [place] [id number] 13 Dec, 2017 Diabetes E11.9 ; Type 2 diab etes mellitus with diabetic peripheral angiopathy without gangrene E11.51 ; Lumbar radiculopathy, chronic M54.16 ; COPD (chronic obstructive pulmonary disease) J44.9 and Anxiety F41.9 [facility] [address] [facility] [id number] [address] [place] [id number] Dec, Back pain M54.9 and Anxiety F41.9 [facility] [address] [facility] [id number] [address] [place] [id number] Nov, Back pain M54.9 and Anxiety F41.9 [facility] [address] [facility] [id number] [address] [place] [id number] Oct, [facility] [address] [facility] [id number] [address] [place] [phone] Oct, Back pain M54.9 and Anxiety F41.9 [place] [address] [facility] [id number] [address] [place] [id number] September, Anxiety F41.9 and Back pain M54.9 [place] [address] [facility] [id number] [address] [place] [address] September, Diabetes E11.9 ; Hypertensio n I10 ; COPD (chronic obstructive pulmonary disease) J44.9 and Lumbar radiculopathy, chronic M54.16 [place] [address] [facility] [id number] [address] [place] [phone] September, Anxiety F41.9 [place] [id number] [facility] [id number] [address] [place] [phone] Aug, [place] [address] [place] [id number] [address] [place] [id number] Aug, [facility] [address] [facility] [id number] [address] [place] [id number] Aug, Anxiety F41.9 and Back pain M54.9 [place] [address] [facility] [id number] [address] [place] [id number] Aug, Medicare annual wellness vis it, initial [...] and [facility] current use of insulin Z79.4 [facility] [address] [id number] [address] [place] [phone] Jul, Back pain M54.9 [facility] [address] [id number] [address] [place] [phone] Jul, [facility] [address] [id number] [address] [place] [id number] Jul, Anxiety F41.9 and Back pain M54.9 [facility] [address] [id number] [address] [place] [id number] Jul, Diabetes E11.9 [facility] [address] [id number] [address] [place] [phone] May, [facility] [address] [id number] [address] [place] [phone] May, Diabetes E11.9 ; Anxiety F41 .9 ; Back pain M54.9 and COPD (chronic obstructive pulmonary disease) J44.9 [facility] [address] [id number] [address] [place] [id number] May, Back pain M54.9 [facility] [address] [id number] [address] [place] [phone] May, [facility] [address] [id number] [address] [place] [phone] Apr, Back pain M54.9 [facility] [address] [id number] [address] [place] [id number] Mar, Back pain M54.9 [facility] [address] [id number] [address] [place] [id number] Mar, [facility] [address] [id number] [address] [place] [id number] 16 Mar, 2017 [facility] [address] [id number] [address] [place] [id number] 14 Mar, 2017 Radiculopathy of lumbar rhiannon on M54.16 [facility] [address] [id number] [address] [place] [phone] 13 Mar, 2017 [facility] [address] [id number] [address] [place] [id number] 07 Mar, 2017 Encounter for immunization Z 23 and Lumbar radiculopathy, chronic M54.16 [facility] [address] [id number] [address] [place] [phone] Mar, Back pain M54.9 and Anxiety F41.9 [facility] [address] [id number] [address] [place] [id number] 10 Feb, 2017 Acute bilateral low back boy n with left-sided sciatica M54.42 and Acute bilateral low back pain with right-sided sciatica M54.41 [facility] [address] [id number] [address] [place] [id number] 06 Feb, 2017 [facility] [address] [id number] [address] [place] [phone] Feb, Back pain M54.9 [facility] [address] [id number] [address] [place] [id number] 05 Jan, 2017 Back pain M54.9 and Anxiety F41.9 [facility] [address] [id number] [address] [place] [id number] 05 Jan, 2017 Diabetes E11.9 [facility] [address] [id number] [address] [place] [id number] Dec, Diabetes E11.9 ; Back pain M 54.9 ; Anxiety F41.9 and Insulin long- term use Z79.4 [facility] [address] [id number] [address] [place] [id number] Dec, Anxiety F41.9 [facility] [address] [id number] [address] [place] [id number] Dec, Back pain M54.9 [facility] [address] [id number] [address] [place] [id number] Nov, Back pain M54.9 [facility] [address] [id number] [address] [place] [id number] Oct, Back pain M54.9 and Anxiety F41.9 [facility] [address] [id number] [address] [place] [id number] September, Back pain M54.9 [facility] [address] [id number] [address] [place] [id number] September, Back pain M54.9 and Anxiety F41.9 [facility] [address] [id number] [address] [place] [id number] Aug, Diabetes E11.9 ; Anxiety F41 .9 ; Back pain M54.9 and PAD (peripheral artery disease) I73.9 [facility] [address] [id number] [address] [place] [id number] Aug, Anxiety F41.9 [facility] [address] [id number] [address] [place] [phone] 14 Aug, 2016 Back pain M54.9 [facility] [address] [id number] [address] [place] [id number] Jul, Back pain M54.9 [facility] [address] [id number] [address] [place] [id number] 13 Jul, 2016 Back pain M54.9 [facility] [address] [id number] [address] [place] [id number] 23 Jul, 2016 Back pain M54.9 [facility] [address] [id number] [address] [place] [id number] 16 Jul, 2016 Dorsalgia M54.9 [facility] [facility] [address] [id number] [address] [place] [id number] 14 Jul, 2016 [facility] [address] [id number] [address] [place] [address] May, Back pain M54.9 [facility] [address] [id number] [address] [place] [address] May, Diabetes E11.9 ; Anxiety F41 .9 ; Port catheter in place Z95.828 ; Encounter for immunization Z23 and Insulin long-term use Z79.4 [facility] [address] [id number] [address] [place] [address] Apr, Back pain M54.9 [facility] [address] [id number] [address] [place] [address] Apr, Back pain M54.9 [facility] [address] [id number] [address] [place] [id number] Apr, [facility] [address] [id number] [address] [place] [id number] Apr, Back pain M54.9 [facility] [address] [id number] [address] [place] [id number] Mar, COPD (chronic obstructive pu lmonary disease) J44.9 [facility] [address] [id number] [address] [place] [id number] Feb, [facility] [address] [id number] [address] [place] [id number] 30 Jan, 2016 [facility] [address] [id number] [address] [place] [phone] Jan, [facility] [address] [id number] [address] [place] [id number] 07 Jan, 2016 [facility] [address] [id number] [address] [place] [id number] 02 Jan, 2016 [facility] [address] [id number] [address] [place] [id number] Dec, Diabetes E11.9 ; Hypoxia R09 .02 and Back pain M54.9 [facility] [address] [id number] [address] [place] [id number] Dec, [facility] [address] [id number] [address] [place] [id number] Nov, [facility] [address] [id number] [address] [place] [address] Oct, Anxiety F41.9 [facility] [address] [id number] [address] [place] [id number] Oct, Back pain M54.9 [facility] [address] [id number] [address] [place] [address] September, Back pain M54.9 [facility] [address] [id number] [address] [place] [address] September, Diabetes E11.9 [facility] [address] [id number] [address] [place] [address] September, [facility] [address] [id number] [address] [place] [address] September, Diabetes E11.9 ; Insulin sarai g-term use Z79.4 and Back pain M54.9 [facility] [address] [id number] [address] [place] [id number] Aug, Back pain M54.9 [facility] [address] [id number] [address] [place] [address] Aug, Back pain M54.9 ; Anxiety F4 1.9 and Arthropathy, unspecified M12.9 [facility] [address] [id number] [address] [place] [address] Jul, Back pain M54.9 [facility] [address] [id number] [address] [place] [id number] Jul, Anxiety F41.9 [facility] [address] [facility] [id number] [address] [place] [id number] Jul, Back pain M54.9 [facility] [address] [facility] [id number] [address] [place] [id number] Jul, [facility] [address] [facility] [id number] [address] [place] [id number] Jul, [facility] [address] [facility] [id number] [address] [place] [id number] May, Back pain M54.9 ; Diabetes E 11.9 ; Insulin long-term use Z79.4 ; COPD (chronic obstructive pulmonary disease) J44.9 and Hypertension I10 [facility] [address] [facility] [id number] [address] [place] [address] May, Chronic pain G89.29 [facility] [address] [facility] [id number] [address] [place] [id number] Apr, [facility] [address] [facility] [id number] [address] [place] [id number] Apr, [facility] [address] [facility] [id number] [address] [place] [id number] Mar, [facility] [address] [facility] [id number] [address] [place] [id number] Mar, Encounter for immunization Z 23 and Diabetes E11.9 [facility] [address] [facility] [id number] [address] [place] [id number] Feb, [facility] [address] [facility] [id number] [address] [place] [id number] Feb, [facility] [address] [facility] [id number] [address] [place] [id number] 23 Jan, 2015 [facility] [address] [facility] [id number] [address] [place] [id number] 16 Jan, 2015 [facility] [address] [facility] [id number] [address] [place] [id number] Dec, [facility] [address] [id number] [address] [place] [address], [place] [address] Dec, [facility] [address] [id number] [address] [place] [address], [place] [address] Dec, Unspecified arthropathy, sit e unspecified 716.90 and Diabetes mellitus type 2, uncontrolled 250.02 [facility] [address] [id number] [address] [place] [address], [place] [address] Dec, [facility] [address] [id number] [address] [place] [address], [place] [address] Nov, [facility] [address] [id number] [address] [place] [address], [place] [address] Oct, [facility] [address] [id number] [address] [place] [address], [place] [address] September, [facility] [address] [id number] [address] [place] [address], [place] [address] September, [facility] [address] [id number] [address] [place] [address], [place] [address] September, [facility] [address] [id number] [address] [place] [address], [place] [address] September, [facility] [address] [id number] [address] [place] [address], [place] [address] Aug, [facility] [address] [id number] [address] [place] [address], [place] [address] Aug, [facility] [address] [id number] [address] [place] [address], [place] [address] Jul, [facility] [address] [id number] [address] [place] [address], [place] [address] 18 Jul, 2014 [facility] [address] [id number] [address] [place] [address], [place] [address] 16 Jul, 2014 [facility] [address] [id number] [address] [place] [address], [place] [address] 16 Jul, 2014 [facility] [address] [id number] [facility] [place] [address] 16 Jul, 2014 [facility] [address] [id number] [address] [place] [address], [place] [address] 16 Jul, 2014 [facility] [address] [id number] [address] [place] [address], [place] [address] 16 Jul, 2014 [facility] [address] [id number] [address] [place] [address], [place] [address] 16 Jul, 2014 [facility] [address] [id number] [address] [place] [address], [place] [address] 16 Jul, 2014 [facility] [address] [id number] [address] [place] [address], [place] [address] 13 Jul, 2014 [facility] [address] [id number] [address] [place] [address], [place] [address] 13 Jul, 2014 [facility] [address] [id number] [address] [place] [address], [place] [address] 09 Jul, 2014 [facility] [address] [id number] [address] [place] [address], [place] [address] 09 Jul, 2014 [facility] [address] [id number] [address] [place] [address], [place] [address] 17 Jul, 2014 [facility] [address] [id number] [address] [place] [address], [place] [address] 17 Jul, 2014 [facility] [address] [id number] [address] [place] [address], [place] [address] 16 Jul, 2014 [facility] [address] [id number] [address] [place] [address], [place] [address] 16 Jul, 2014 [facility] [address] [id number] [address] [place] [address], [place] [address] 16 Jul, 2014 [facility] [address] [id number] [address] [place] [address], [place] [address] 16 Jul, 2014 [facility] [address] [id number] [address] [place] [address], [place] [address] 16 Jul, 2014 [facility] [address] [id number] [address] [place] [address], [place] [address] Jul, 2014 [facility] [address] [id number] [address] [place] [address], [place] [address] 16 Jul, 2014 [facility] [address] [id number] [address] [place] [address], [place] [address] Jul, 2014 [facility] [address] [id number] [address] [place] [address], [place] [address] Jul, 2014 [facility] [address] [id number] [address] [place] [address], [place] [address] Jul, 2014 [facility] [address] [id number] [address] [place] [address], [place] [address] Jul, 2014 [facility] [address] [id number] [address] [place] [address], [place] [address] Jul, 2014 [facility] [address] [id number] [address] [place] [address], [place] [address] Jul, 2014 [facility] [address] [id number] [address] [place] [address], [place] [address] Jul, 2014 [facility] [address] [id number] [address] [place] [id number] May, [facility] [address] [id number] [address] [place] [id number] May, [facility] [address] [id number] [address] [place] [address], [place] [address] May, [facility] [address] [id number] [address] [place] [address], [place] [address] May, [facility] [address] [id number] [address] [place] [id number] May, [facility] [address] [id number] [address] [place] [address] May, [facility] [address] [id number] [address] [place] [address], [place] [address] May, [facility] [address] [id number] [address] [place] [address], [place] [address] May, [facility] [address] [id number] [address] [place] [address], [place] [address] May, [facility] [address] [id number] [address] [place] [address], [place] [address] May, [facility] [address] [id number] [address] [place] [address], [place] [address] Apr, [facility] [address] [id number] [address] [place] [address], [place] [address] Apr, [facility] [address] [id number] [address] [place] [address], [place] [address] Apr, [facility] [address] [id number] [address] [place] [address], [place] [address] Apr, [facility] [address] [id number] [address] [place] [address], [place] [address] Apr, [facility] [address] [id number] [address] [place] [address], [place] [address] Apr, [facility] [address] [id number] [address] [place] [address], [place] [address] Mar, [facility] [address] [id number] [address] [place] [address], [place] [address] Mar, [facility] [address] [id number] [address] [place] [address], [place] [address] Mar, [facility] [address] [id number] [address] [place] [address], [place] [address] Mar, [facility] [address] [id number] [address] [place] [address], [place] [address] Mar, [facility] [address] [id number] [address] [place] [address], [place] [address] Mar, [facility] [address] [id number] [address] [place] [address], [place] [address] Mar, [facility] [address] [id number] [address] [place] [address], [place] [address] Mar, [facility] [address] [id number] [address] [place] [address], [place] [address] Mar, [facility] [address] [id number] [address] [place] [address], [place] [address] Mar, [facility] [address] [id number] [address] [place] [address], [place] [address] Mar, [facility] [address] [id number] [address] [place] [address], [place] [address] Feb, [facility] [address] [id number] [address] [place] [address], [place] [address] Feb, [facility] [address] [id number] [address] [place] [address], [place] [address] Feb, [facility] [address] [id number] [address] [place] [address], [place] [address] Feb, [facility] [address] [id number] [address] [place] [address], [place] [address] Feb, [facility] [address] [id number] [address] [place] [address], [place] [address] Feb, [facility] [address] [id number] [address] [place] [address], [place] [address] Feb, [facility] [address] [id number] [address] [place] [address], [place] [address] Feb, [facility] [address] [id number] [address] [place] [address], [place] [address] Feb, [facility] [address] [id number] [address] [place] [address], [place] [address] Feb, [facility] [address] [id number] [facility] [place] [address] Jan, [facility] [address] [id number] [address] [place] [address], [place] [address] Jan, [facility] [address] [id number] [address] [place] [address], [place] [address] Jan, [facility] [address] [id number] [address] [place] [address], [place] [address] 16 Jan, 2014 [facility] [address] [id number] [address] [place] [address], [place] [address] Jan, [facility] [address] [id number] [address] [place] [address], [place] [address] Jan, [facility] [address] [id number] [address] [place] [address], [place] [address] Jan, [facility] [address] [id number] [address] [place] [address], [place] [address] Dec, [facility] [address] [id number] [address] [place] [address], [place] [address] Dec, [facility] [address] [id number] [address] [place] [address], [place] [address] Dec, [facility] [address] [id number] [address] [place] [address], [place] [address] Dec, [facility] [address] [id number] [address] [place] [address], [place] [address] Dec, [facility] [address] [id number] [address] [place] [address], [place] [address] Dec, [facility] [address] [id number] [address] [place] [address], [place] [address] Dec, [facility] [address] [id number] [address] [place] [address], [place] [address] Dec, [facility] [address] [id number] [address] [place] [address], [place] [address] Oct, [facility] [address] [id number] [address] [place] [address], [place] [address] Oct, [facility] [address] [id number] [address] [place] [address], [place] [address] September, [facility] [address] [id number] [address] [place] [address], [place] [address] September, [facility] [address] [id number] [address] [place] [address], [place] [address] September, [facility] [address] [id number] [address] [place] [address], [place] [address] September, [facility] [address] [id number] [address] [place] [address], [place] [address] September, [facility] [address] [id number] [address] [place] [address], [place] [address] September, [facility] [address] [id number] [address] [place] [address], [place] [address] September, [facility] [address] [id number] [address] [place] [address], [place] [address] Aug, [facility] [address] [id number] [address] [place] [address], [place] [address] Aug, [facility] [address] [id number] [address] [place] [address], [place] [address] Jul, [facility] [address] [id number] [address] [place] [address], [place] [address] Jul, [facility] [address] [id number] [address] [place] [address], [place] [address] Jul, [facility] [address] [id number] [address] [place] [address], [place] [address] 17 Jul, 2013 [facility] [address] [id number] [address] [place] [address], [place] [address] 14 Jul, 2013 [facility] [address] [id number] [address] [place] [address], [place] [address] 14 Jul, 2013 [facility] [address] [id number] [address] [place] [address], [place] [address] 03 Jul, 2013 [facility] [address] [id number] [address] [place] [address], [place] [address] 03 Jul, 2013 [facility] [address] [id number] [address] [place] [address], [place] [address] 15 May, 2013 [facility] [address] [id number] [address] [place] [address], [place] [address] 15 May, 2013 [facility] [address] [id number] [address] [place] [address], [place] [address] May, [facility] [address] [id number] [address] [place] [address], [place] [address] May, [facility] [address] [id number] [address] [place] [address], [place] [address] Apr, [facility] [address] [id number] [address] [place] [address], [place] [address] Mar, [facility] [address] [id number] [address] [place] [address], [place] [address] Mar, [facility] [address] [id number] [address] [place] [address], [place] [address] Mar, [facility] [address] [id number] [address] [place] [address], [place] [address] Mar, [facility] [address] [id number] [address] [place] [address], [place] [address] Mar, [facility] [address] [id number] [address] [place] [address], [place] [address] 18 Mar, 2013 [facility] [address] [id number] [address] [place] [address], [place] [address] 18 Mar, 2013 [facility] [address] [id number] [address] [place] [address], [place] [address] Mar, [facility] [address] [id number] [address] [place] [address], [place] [address] Mar, [facility] [address] [id number] [address] [place] [address], [place] [address] Mar, [facility] [address] [id number] [address] [place] [address], [place] [address] Mar, [facility] [address] [id number] [address] [place] [address], [place] [address] Mar, [facility] [address] [id number] [address] [place] [address], [place] [address] Feb, [facility] [address] [id number] [address] [place] [address], [place] [address] Feb, [facility] [address] [id number] [address] [place] [address], [place] [address] Feb, [facility] [address] [id number] [address] [place] [address], [place] [address] Feb, [facility] [address] [id number] [address] [place] [address], [place] [address] Feb, [facility] [address] [id number] [address] [place] [address], [place] [address] Jan, [facility] [address] [id number] [address] [place] [address], [place] [address] Dec, [facility] [address] [id number] [address] [place] [address], [place] [address] Dec, [facility] [address] [id number] [address] [place] [address], [place] [address] Dec, [facility] [address] [id number] [address] [place] [address], [place] [address] Nov, [facility] [address] [id number] [address] [place] [address], [place] [address] Nov, [facility] [address] [id number] [address] [place] [address], [place] [address] 15 Nov, 2012 [facility] [address] [id number] [address] [place] [address], [place] [address] Oct, [facility] [address] [id number] [address] [place] [address], [place] [address] Oct, [facility] [address] [id number] [address] [place] [address], [place] [address] Oct, [facility] [address] [id number] [address] [place] [address], [place] [address] September, [facility] [address] [id number] [address] [place] [address], [place] [address] September, [facility] [address] [id number] [address] [place] [address], [place] [address] September, [facility] [address] [id number] [address] [place] [address], [place] [address] September, [facility] [address] [id number] [address] [place] [address], [place] [address] September, [facility] [address] [id number] [address] [place] [address], [place] [address] Aug, [facility] [address] [id number] [address] [place] [address], [place] [address] Aug, [facility] [address] [id number] [address] [place] [address], [place] [address] Aug, [facility] [address] [id number] [address] [place] [address], [place] [address] Jul, [facility] [address] [id number] [address] [place] [address], [place] [address] Jul, [facility] [address] [id number] [address] [place] [address], [place] [address] Jul, [facility] [address] [id number] [address] [place] [address], [place] [address] Jul, [facility] [address] [id number] [address] [place] [address], [place] [address] Jul, [facility] [address] [id number] [address] [place] [address], [place] [address] Jul, [facility] [address] [id number] [address] [place] [address], [place] [address] Jul, [facility] [address] [id number] [address] [place] [address], [place] [address] May, [facility] [address] [id number] [address] [place] [address], [place] [address] May, [facility] [address] [id number] [address] [place] [address], [place] [address] May, [facility] [address] [id number] [address] [place] [address], [place] [address] Apr, [facility] [address] [id number] [address] [place] [address], [place] [address] Apr, [facility] [address] [id number] [address] [place] [address], [place] [address] Apr, [facility] [address] [id number] [address] [place] [address], [place] [address] Apr, [facility] [address] [id number] [address] [place] [address], [place] [address] Apr, [facility] [address] [id number] [address] [place] [address], [place] [address] 29 Mar, 2012 [facility] [address] [id number] [address] [place] [address], [place] [address] 29 Mar, 2012 [facility] [address] [id number] [address] [place] [address], [place] [address] 15 Mar, 2012 [facility] [address] [id number] [address] [place] [address], [place] [address] 15 Mar, 2012 [facility] [address] [id number] [address] [place] [address], [place] [address] Feb, [facility] [address] [id number] [address] [place] [address], [place] [address] Feb, [facility] [address] [id number] [address] [place] [address], [place] [address] Feb, [facility] [address] [id number] [address] [place] [address], [place] [address] Feb, [facility] [address] [id number] [address] [place] [address], [place] [address] Feb, [facility] [address] [id number] [address] [place] [address], [place] [address] Jan, [facility] [address] [id number] [address] [place] [address], [place] [address] Dec, [facility] [address] [id number] [address] [place] [address], [place] [address] Dec, [facility] [address] [id number] [address] [place] [address], [place] [address] Dec, [facility] [address] [id number] [address] [place] [address], [place] [address] Nov, [facility] [address] [id number] [address] [place] [address], [place] [address] Nov, [facility] [address] [id number] [address] [place] [address], [place] [address] Nov, [facility] [address] [id number] [address] [place] [address], [place] [address] Oct, [facility] [address] [id number] [address] [place] [address], [place] [address] Oct, [facility] [address] [id number] [address] [place] [address], [place] [address] Oct, [facility] [address] [id number] [address] [place] [address], [place] [address] Oct, [facility] [address] [id number] [address] [place] [address], [place] [address] September, [facility] [address] [id number] [address] [place] [address], [place] [address] September, [facility] [address] [id number] [address] [place] [address], [place] [address] Aug, [facility] [address] [id number] [address] [place] [address], [place] [address] Aug, [facility] [address] [id number] [address] [place] [address], [place] [address] Aug, [facility] [address] [id number] [address] [place] [address], [place] [address] Aug, [facility] [address] [id number] [address] [place] [address], [place] [address] Aug, [facility] [address] [id number] [address] [place] [address], [place] [address] Aug, [facility] [address] [id number] [address] [place] [address], [place] [address] Aug, [facility] [address] [id number] [address] [place] [address], [place] [address] Jul, [facility] [address] [id number] [address] [place] [address], [place] [address] Jul, [facility] [address] [id number] [address] [place] [address], [place] [address] Jul, [facility] [address] [id number] [address] [place] [address], [place] [address] May, [facility] [address] [id number] [address] [place] [address], [place] [address] May, [facility] [address] [id number] [address] [place] [address], [place] [address] May, [facility] [address] [id number] [address] [place] [id number] Apr, [facility] [address] [id number] [address] [place] [id number] Apr, [facility] [address] [id number] [address] [place] [id number] Mar, [facility] [address] [id number] [address] [place] [id number] Mar, [facility] [address] [id number] [address] [place] [id number] Mar, [facility] [address] [id number] [address] [place] [id number] Mar, [facility] [address] [id number] [address] [place] [id number] Mar, [facility] [address] [id number] [address] [place] [id number] Mar, [facility] [address] [id number] [address] [place] [id number] Feb, [facility] [address] [id number] [address] [place] [id number] Feb, [facility] [address] [id number] [address] [place] [id number] Feb, IMMUNIZATIONS No Known Immunizations SOCIAL HISTORY [...]
--- OUTSIDE RECORDS SUMMARY | 2020-01-03 08:06 | XMS REPORT ---
Author Author Tra SILVERIO Organization [facility] Address [address] [place] [address] Care Team Providers Care Precision Lens Polisher Name Role Phone FERNY SILVERIO Unavailable PROBLEMS Type Condition ICD9-CM Code [id number] Code Onset Dates Condition S tatus SNOMED Code Problem Hypertension I10 Active 0194909 3 Problem Hypoxia R09.02 Active 827782044 Problem COPD (chronic obstructive pulmonary disease) J44.9 Active 33670224 Problem Lumbar radiculopathy, chronic M54.16 Active 161852305 Problem assisted current use of insulin Z79.4 Active 999460950 Problem Recurrent major depressive disorder, in full remission F33.42 Active 941506589 Problem Hyperlipidemia, unspecified E78.5 Ac tive 93778383 Problem PAD (peripheral artery disease) I73.9 Active 480884838 Problem Type 2 diabetes mellitus with other specified complication E11.69 Active 060164308146 Problem Anxiety F41.9 Active 24174262 Problem Type 2 diabetes mellitus wit h diabetic peripheral angiopathy without gangrene E11.51 Active 677947775 Problem ED (erectile dysfunction) of organic origin N52.9 Active 469104007 Problem Arthritis M19.90 Active 6307985 Problem Morbid (severe) obesity due to excess calories E66 .01 Active 389696245 ALLERGIES No Information ENCOUNTERS Encounter Location Date Diagnosis [address] 340 [id number] [address] Nov, Anxiety F41.[address] 340B [id number] [place] [address] Nov, Back pain M54.9 [facility] [address] [facility] [id number] [address] [place] [address] Nov, Back pain M54.9 [facility] [address] [facility] [id number] [address] [place] [address] Nov, [address] [id number] [place] [address] Oct, Anxiety F41.[address] 340[address] [id number] [address] Oct, [facility] [address] [id number] [address] [place] [phone] 17 Oct, 2019 [facility] [address] [id number] [address] [place] [phone] 15 Oct, 2019 Back pain M54.9 and Lumbar r adiculopathy, chronic M54.16 [facility] [address] [id number] [address] [place] [address] 04 Oct, 2019 Lumbar radiculopathy, chroni c M54.16 [facility] [address] [id number] [address] [place] [phone] 03 Oct, 2019 Anxiety F41.[address] [id number] [address] Oct, [facility] [address] [id number] [address] [place] [address] September, Back pain M54.9 and Lumbar r adiculopathy, chronic M54.[address] 340[address] [id number] [address] September, Anxiety F41.9 [place] [id number] [address] Aug, [facility] [address] [id number] [address] [place] [address] Aug, Back pain M54.9 and Lumbar r adiculopathy, chronic M54.16 [facility] [address] [id number] [address] [place] [address] Aug, Anxiety F41.9 ; Back pain M5 4.9 and Lumbar radiculopathy, chronic M54.16 [facility] [address] [id number] [address] [place] [phone] 09 Aug, 2019 Lumbar radiculopathy, chroni c M54.16 ; Anxiety F41.9 ; Type 2 diabetes mellitus with other specified complication E11.69 and Hypertension I10 [facility] [address] [id number] [address] [place] [phone] 30 Jul, 2019 [facility] [address] [id number] [address] [place] [phone] 27 Jul, 2019 Lumbar radiculopathy, chroni c M54.16 ; Back pain M54.9 and Anxiety F41.9 [facility] [address] [id number] [address] [place] [phone] 23 Jul, 2019 [facility] [address] [id number] [address] [place] [phone] 13 Jul, 2019 Anxiety F41.9 [facility] [address] [id number] [address] [place] [phone] 12 Jul, 2019 Anxiety F41.9 [facility] [address] [id number] [address] [place] [phone] 02 Jul, 2019 Back pain M54.9 [facility] [address] [id number] [address] [place] [address] 02 Jul, 2019 Back pain M54.9 [facility] [address] [id number] [address] [place] [phone] 28 Jul, 2019 Lumbar radiculopathy, chroni c M54.16 [facility] [address] [id number] [address] [place] [address] 28 Jul, 2019 Back pain M54.9 [facility] [address] [id number] [address] [place] [phone] 07 Jul, 2019 Encounter for Medicare annua [...] diabetes mellitus with other specified complication E11.69 [place] [address] [id number] [address] [place] [address] Jul, Back pain M54.9 [place] [address] [id number] [address] [place] [address] Jul, Anxiety F41.9 [place] [address] [id number] [address] [place] [address] May, [place] [address] [facility] [id number] [address] [place] [address] May, Lumbar radiculopathy, chroni c M54.16 [place] [address] [id number] [address] [place] [address] May, Back pain M54.9 [place] [address] [id number] [address] [place] [address] May, [place] [address] [facility] [id number] [address] [place] [address] May, Back pain M54.9 and Anxiety F41.9 [place] [address] [facility] [id number] [address] [place] [address] May, [place] [address] [id number] [address] [place] [address] May, Type 2 diabetes mellitus wit h diabetic peripheral angiopathy without gangrene E11.51 ; Arthritis M19.90 ; ED (erectile dysfunction) of organic origin N52.9 ; Morbid (severe) obesity due to excess calories E66.01 and Lumbar radiculopathy, chronic M54.16 [place] [address] [id number] [address] [place] [address] May, Diabetes E11.9 [facility] [address] [id number] [address] [place] [address] Apr, [facility] [address] [id number] [address] [place] [address] Apr, Back pain M54.9 [facility] [address] [facility] [id number] [address] [place] [address] Apr, [facility] [address] [id number] [address] [place] [address] Apr, Anxiety F41.9 [facility] [address] [id number] [address] [place] [address] Apr, Back pain M54.9 and Lumbar r adiculopathy, chronic M54.16 [facility] [address] [facility] [id number] [address] [place] [address] Apr, Back pain M54.9 ; Anxiety F4 1.9 and Lumbar radiculopathy, chronic M54.16 [facility] [address] [facility] [id number] [address] [place] [phone] Mar, [facility] [address] [facility] [id number] [address] [place] [address] Mar, [facility] [address] [facility] [id number] [address] [place] [address] Mar, Back pain M54.9 [facility] [address] [facility] [id number] [address] [place] [phone] Mar, [facility] [address] [facility] [id number] [address] [place] [address] Feb, Type 2 diabetes mellitus wit h diabetic peripheral angiopathy without gangrene E11.51 ; Lumbar radiculopathy, chronic M54.16 ; ED (erectile dysfunction) of organic origin N52.9 ; Encounter for immunization Z23 ; COPD (chronic obstructive pulmonary disease) J44.9 and Anxiety F41.9 [facility] [address] [id number] [address] [place] [address] Feb, Back pain M54.9 [facility] [address] [id number] [address] [place] [address] Feb, [facility] [address] [id number] [address] [place] [address] Feb, [facility] [address] [id number] [address] [place] [address] Feb, [facility] [address] [id number] [address] [place] [address] Feb, Back pain M54.9 [facility] [address] [id number] [address] [place] [address] Feb, [facility] [address] [id number] [address] [place] [address] Jan, Anxiety F41.9 [facility] [address] [id number] [address] [place] [address] Jan, Anxiety F41.9 [facility] [address] [id number] [address] [place] [address] Jan, [facility] [address] [id number] [address] [place] [address] Jan, [facility] [address] [id number] [address] [place] [address] Jan, Back pain M54.9 [facility] [address] [id number] [address] [place] [address] Jan, [facility] [address] [id number] [address] [place] [address] Dec, Acute non-recurrent frontal sinusitis J01.10 [facility] [address] [id number] [address] [place] [phone] Dec, Acute non-recurrent frontal sinusitis J01.10 [facility] [address] [id number] [address] [place] [address] Dec, Type 2 diabetes mellitus wit h diabetic peripheral angiopathy without gangrene E11.51 ; Lumbar radiculopathy, chronic M54.16 ; Recurrent major depressive disorder, in full remission F33.42 and Anxiety F41.9 [facility] [address] [id number] [address] [place] [address] Dec, [facility] [address] [id number] [address] [place] [address] Nov, Anxiety F41.9 [facility] [address] [id number] [address] [place] [address] Nov, [facility] [address] [id number] [address] [place] [address] Nov, Back pain M54.9 [facility] [address] [id number] [address] [place] [address] Nov, [facility] [address] [id number] [address] [place] [address] Nov, Back pain M54.9 [facility] [address] [id number] [address] [place] [address] Nov, Anxiety F41.9 [facility] [address] [id number] [address] [place] [address] Nov, [facility] [address] [id number] [address] [place] [address] Oct, Back pain M54.9 [facility] [address] [id number] [address] [place] [address] Oct, [facility] [address] [id number] [address] [place] [address] Oct, [facility] [address] [id number] [address] [place] [address] Oct, [facility] [address] [id number] [address] [place] [address] September, Back pain M54.9 [facility] [address] [id number] [address] [place] [address] September, [facility] [address] [id number] [address] [place] [address] September, [facility] [address] [id number] [address] [place] [address] September, [facility] [address] [id number] [address] [place] [address] Aug, Back pain M54.9 [facility] [address] [id number] [address] [place] [address] Aug, Anxiety F41.9 [facility] [address] [id number] [address] [place] [address] Aug, [facility] [address] [facility] [id number] [address] [place] [address] Aug, Pressure ulcer of other site , stage 3 L89.893 and COPD (chronic obstructive pulmonary disease) J44.9 [facility] [address] [facility] [id number] [address] [place] [address] Aug, History of smoking Z87.891 [facility] [address] [id number] [address] [place] [address] Jul, Type 2 diabetes mellitus wit h diabetic peripheral angiopathy without gangrene E11.51 [facility] [address] [id number] [address] [place] [address] Jul, Back pain M54.9 [facility] [address] [id number] [address] [place] [address] Jul, Anxiety F41.9 [facility] [address] [id number] [address] [place] [phone] Jul, [facility] [address] [facility] [id number] [address] [place] [address] Jul, Back pain M54.9 [facility] [address] [id number] [address] [place] [phone] 12 Jul, 2018 Back pain M54.9 [facility] [address] [id number] [address] [place] [address] Jul, Lumbar radiculopathy, chroni c M54.16 ; Hypertension I10 and Type 2 diabetes mellitus with diabetic peripheral angiopathy without gangrene E11.51 [facility] [address] [id number] [address] [place] [address] Jul, Back pain M54.9 [facility] [address] [id number] [address] [place] [address] Jul, Back pain M54.9 and Anxiety F41.9 [place] [address] [id number] [address] [place] [address] Jul, [facility] [address] [id number] [address] [place] [address] May, Back pain M54.9 and Anxiety F41.9 [facility] [address] [id number] [address] [place] [address] May, [facility] [address] [id number] [address] [place] [address] Apr, Radiculopathy of lumbar rhiannon on M54.16 ; Back pain M54.9 and Anxiety F41.9 [facility] [address] [id number] [address] [place] [address] Apr, Diabetes E11.9 ; Muscle spas m M62.838 and Lumbar radiculopathy, chronic M54.16 [facility] [address] [id number] [address] [place] [address] Apr, [facility] [address] [id number] [address] [place] [address] Apr, [facility] [address] [facility] [id number] [address] [place] [address] 30 Mar, 2018 Back pain M54.9 and Anxiety F41.9 [facility] [address] [facility] [id number] [address] [place] [address] Mar, [facility] [address] [facility] [id number] [address] [place] [address] Mar, [facility] [address] [facility] [id number] [place] [address] Mar, [facility] [address] [facility] [id number] [address] [place] [address] Mar, Encounter for immunization Z 23 [facility] [address] [facility] [id number] [place] [address] 31 Feb, 2018 Back pain M54.9 and Anxiety F41.9 [place] [address] [place] [id number] [place] [address] 04 Feb, 2018 Back pain M54.9 and Anxiety F41.9 [place] [address] [place] [id number] [address] [place] [phone] 06 Jan, 2018 Back pain M54.9 and Anxiety F41.9 [place] [address] [facility] [id number] [place] [address] Jan, [place] [address] [place] [id number] [address] [place] [address] Dec, [facility] [address] [facility] [id number] [address] [place] [address] Dec, Back pain M54.9 and Anxiety F41.9 [place] [address] [place] [id number] [place] [address] 13 Dec, 2017 Diabetes E11.9 ; Type 2 diab etes mellitus with diabetic peripheral angiopathy without gangrene E11.51 ; Lumbar radiculopathy, chronic M54.16 ; COPD (chronic obstructive pulmonary disease) J44.9 and Anxiety F41.9 [facility] [address] [facility] [id number] [address] [place] [address] Dec, Back pain M54.9 and Anxiety F41.9 [facility] [address] [facility] [id number] [address] [place] [address] Nov, Back pain M54.9 and Anxiety F41.9 [facility] [address] [facility] [id number] [address] [place] [phone] Oct, [facility] [address] [facility] [id number] [address] [place] [address] Oct, Back pain M54.9 and Anxiety F41.9 [place] [address] [facility] [id number] [address] [place] [phone] September, Anxiety F41.9 and Back pain M54.9 [place] [address] [facility] [id number] [address] [place] [address] September, Diabetes E11.9 ; Hypertensio n I10 ; COPD (chronic obstructive pulmonary disease) J44.9 and Lumbar radiculopathy, chronic M54.16 [place] [address] [facility] [id number] [address] [place] [address] September, Anxiety F41.9 [place] [id number] [facility] [id number] [address] [place] [address] Aug, [place] [address] [place] [id number] [address] [place] [address] Aug, [facility] [address] [facility] [id number] [address] [place] [address] Aug, Anxiety F41.9 and Back pain M54.9 [place] [address] [facility] [id number] [address] [place] [address] Aug, Medicare annual wellness vis it, initial [...] and assisted current use of insulin Z79.4 [facility] [address] [id number] [address] [place] [address] Jul, Back pain M54.9 [facility] [address] [id number] [address] [place] [address] Jul, [facility] [address] [id number] [address] [place] [address] Jul, Anxiety F41.9 and Back pain M54.9 [facility] [address] [id number] [address] [place] [address] Jul, Diabetes E11.9 [facility] [address] [id number] [address] [place] [phone] May, [facility] [address] [id number] [address] [place] [address] May, Diabetes E11.9 ; Anxiety F41 .9 ; Back pain M54.9 and COPD (chronic obstructive pulmonary disease) J44.9 [facility] [address] [id number] [address] [place] [address] May, Back pain M54.9 [facility] [address] [id number] [address] [place] [phone] May, [facility] [address] [id number] [address] [place] [phone] Apr, Back pain M54.9 [facility] [address] [id number] [address] [place] [address] Mar, Back pain M54.9 [facility] [address] [id number] [address] [place] [phone] Mar, [facility] [address] [id number] [address] [place] [id number] 16 Mar, 2017 [facility] [address] [id number] [address] [place] [address] 14 Mar, 2017 Radiculopathy of lumbar rhiannon on M54.16 [facility] [address] [id number] [address] [place] [phone] 13 Mar, 2017 [facility] [address] [id number] [address] [place] [phone] 07 Mar, 2017 Encounter for immunization Z 23 and Lumbar radiculopathy, chronic M54.16 [facility] [address] [id number] [address] [place] [address] Mar, Back pain M54.9 and Anxiety F41.9 [facility] [address] [id number] [address] [place] [phone] 10 Feb, 2017 Acute bilateral low back boy n with left-sided sciatica M54.42 and Acute bilateral low back pain with right-sided sciatica M54.41 [facility] [address] [id number] [address] [place] [phone] 06 Feb, 2017 [facility] [address] [id number] [address] [place] [phone] Feb, Back pain M54.9 [facility] [address] [id number] [address] [place] [phone] 05 Jan, 2017 Back pain M54.9 and Anxiety F41.9 [facility] [address] [id number] [address] [place] [phone] 05 Jan, 2017 Diabetes E11.9 [facility] [address] [id number] [address] [place] [phone] Dec, Diabetes E11.9 ; Back pain M 54.9 ; Anxiety F41.9 and Insulin long- term use Z79.4 [facility] [address] [id number] [address] [place] [phone] Dec, Anxiety F41.9 [facility] [address] [id number] [address] [place] [id number] Dec, Back pain M54.9 [facility] [address] [id number] [address] [place] [phone] Nov, Back pain M54.9 [facility] [address] [id number] [address] [place] [phone] Oct, Back pain M54.9 and Anxiety F41.9 [facility] [address] [id number] [address] [place] [phone] September, Back pain M54.9 [facility] [address] [id number] [address] [place] [phone] September, Back pain M54.9 and Anxiety F41.9 [facility] [address] [id number] [address] [place] [phone] Aug, Diabetes E11.9 ; Anxiety F41 .9 ; Back pain M54.9 and PAD (peripheral artery disease) I73.9 [facility] [address] [id number] [address] [place] [phone] Aug, Anxiety F41.9 [facility] [address] [id number] [address] [place] [phone] 14 Aug, 2016 Back pain M54.9 [facility] [address] [id number] [address] [place] [phone] Jul, Back pain M54.9 [facility] [address] [id number] [address] [place] [phone] 13 Jul, 2016 Back pain M54.9 [facility] [address] [id number] [address] [place] [phone] 23 Jul, 2016 Back pain M54.9 [facility] [address] [id number] [address] [place] [phone] 16 Jul, 2016 Dorsalgia M54.9 [facility] [address] [id number] [address] [place] [phone] 14 Jul, 2016 [facility] [address] [id number] [address] [place] [phone] May, Back pain M54.9 [facility] [address] [id number] [address] [place] [phone] May, Diabetes E11.9 ; Anxiety F41 .9 ; Port catheter in place Z95.828 ; Encounter for immunization Z23 and Insulin long-term use Z79.4 [facility] [address] [id number] [address] [place] [phone] Apr, Back pain M54.9 [facility] [facility] [address] [id number] [address] [place] [phone] Apr, Back pain M54.9 [facility] [address] [id number] [address] [place] [phone] Apr, [facility] [address] [id number] [address] [place] [id number] Apr, Back pain M54.9 [facility] [address] [id number] [address] [place] [phone] Mar, COPD (chronic obstructive pu lmonary disease) J44.9 [facility] [address] [id number] [address] [place] [phone] Feb, [facility] [address] [id number] [address] [place] [phone] 30 Jan, 2016 [facility] [address] [id number] [address] [place] [phone] Jan, [facility] [address] [id number] [address] [place] [phone] 07 Jan, 2016 [facility] [address] [id number] [address] [place] [id number] 02 Jan, 2016 [facility] [address] [id number] [address] [place] [phone] Dec, Diabetes E11.9 ; Hypoxia R09 .02 and Back pain M54.9 [facility] [address] [id number] [address] [place] [phone] Dec, [facility] [address] [id number] [address] [place] [phone] Nov, [facility] [address] [id number] [address] [place] [id number] Oct, Anxiety F41.9 [facility] [address] [id number] [address] [place] [id number] Oct, Back pain M54.9 [facility] [address] [id number] [address] [place] [phone] September, Back pain M54.9 [facility] [address] [id number] [address] [place] [phone] September, Diabetes E11.9 [facility] [address] [id number] [address] [place] [phone] September, [facility] [address] [id number] [address] [place] [phone] September, Diabetes E11.9 ; Insulin sarai g-term use Z79.4 and Back pain M54.9 [facility] [address] [id number] [address] [place] [phone] Aug, Back pain M54.9 [facility] [address] [id number] [address] [place] [phone] Aug, Back pain M54.9 ; Anxiety F4 1.9 and Arthropathy, unspecified M12.9 [facility] [address] [id number] [address] [place] [phone] Jul, Back pain M54.9 [facility] [address] [id number] [address] [place] [phone] Jul, Anxiety F41.9 [facility] [address] [facility] [id number] [address] [place] [phone] Jul, Back pain M54.9 [facility] [address] [facility] [id number] [address] [place] [phone] Jul, [facility] [address] [facility] [id number] [address] [place] [phone] Jul, [facility] [address] [facility] [id number] [address] [place] [phone] May, Back pain M54.9 ; Diabetes E 11.9 ; Insulin long-term use Z79.4 ; COPD (chronic obstructive pulmonary disease) J44.9 and Hypertension I10 [facility] [address] [facility] [id number] [address] [place] [phone] May, Chronic pain G89.29 [facility] [address] [facility] [id number] [address] [place] [phone] Apr, [facility] [address] [facility] [id number] [address] [place] [phone] Apr, [facility] [address] [facility] [id number] [address] [place] [phone] Mar, [facility] [address] [facility] [id number] [address] [place] [phone] Mar, Encounter for immunization Z 23 and Diabetes E11.9 [facility] [address] [facility] [id number] [address] [place] [phone] Feb, [facility] [address] [facility] [id number] [address] [place] [phone] Feb, [facility] [address] [facility] [id number] [address] [place] [phone] 23 Jan, 2015 [facility] [address] [facility] [id number] [address] [place] [phone] 16 Jan, 2015 [facility] [address] [facility] [id number] [address] [place] [phone] Dec, [facility] [address] [id number] [address] [place] [address], [place] [address] Dec, [facility] [address] [id number] [address] [place] [address], [place] [address] Dec, Unspecified arthropathy, sit e unspecified 716.90 and Diabetes mellitus type 2, uncontrolled 250.02 [facility] [address] [id number] [address] [place] [address], [place] [address] Dec, [facility] [address] [id number] [address] [place] [address], [place] [address] Nov, [facility] [address] [id number] [address] [place] [address], [place] [address] Oct, [facility] [address] [id number] [address] [place] [address], [place] [address] September, [facility] [address] [id number] [address] [place] [address], [place] [address] September, [facility] [address] [id number] [address] [place] [address], [place] [address] September, [facility] [address] [id number] [address] [place] [address], [place] [address] September, [facility] [address] [id number] [address] [place] [address], [place] [address] Aug, [facility] [address] [id number] [address] [place] [address], [place] [address] Aug, [facility] [address] [id number] [address] [place] [address], [place] [address] Jul, [facility] [address] [id number] [address] [place] [address], [place] [address] 18 Jul, 2014 [facility] [address] [id number] [address] [place] [address], [place] [address] 16 Jul, 2014 [facility] [address] [id number] [address] [place] [address], [place] [address] 16 Jul, 2014 [facility] [address] [id number] [facility] [place] [address] 16 Jul, 2014 [facility] [address] [id number] [address] [place] [address], [place] [address] 16 Jul, 2014 [facility] [address] [id number] [address] [place] [address], [place] [address] 16 Jul, 2014 [facility] [address] [id number] [address] [place] [address], [place] [address] 16 Jul, 2014 [facility] [address] [id number] [address] [place] [address], [place] [address] 16 Jul, 2014 [facility] [address] [id number] [address] [place] [address], [place] [address] 13 Jul, 2014 [facility] [address] [id number] [address] [place] [address], [place] [address] 13 Jul, 2014 [facility] [address] [id number] [address] [place] [address], [place] [address] 09 Jul, 2014 [facility] [address] [id number] [address] [place] [address], [place] [address] 09 Jul, 2014 [facility] [address] [id number] [address] [place] [address], [place] [address] 17 Jul, 2014 [facility] [address] [id number] [address] [place] [address], [place] [address] 17 Jul, 2014 [facility] [address] [id number] [address] [place] [address], [place] [address] 16 Jul, 2014 [facility] [address] [id number] [address] [place] [address], [place] [address] 16 Jul, 2014 [facility] [address] [id number] [address] [place] [address], [place] [address] 16 Jul, 2014 [facility] [address] [id number] [address] [place] [address], [place] [address] 16 Jul, 2014 [facility] [address] [id number] [address] [place] [address], [place] [address] 16 Jul, 2014 [facility] [address] [id number] [address] [place] [address], [place] [address] Jul, 2014 [facility] [address] [id number] [address] [place] [address], [place] [address] 16 Jul, 2014 [facility] [address] [id number] [address] [place] [address], [place] [address] Jul, 2014 [facility] [address] [id number] [address] [place] [address], [place] [address] Jul, 2014 [facility] [address] [id number] [address] [place] [address], [place] [address] Jul, 2014 [facility] [address] [id number] [address] [place] [address], [place] [address] Jul, 2014 [facility] [address] [id number] [address] [place] [address], [place] [address] Jul, 2014 [facility] [address] [id number] [address] [place] [address], [place] [address] Jul, 2014 [facility] [address] [id number] [address] [place] [address], [place] [address] Jul, 2014 [facility] [address] [id number] [address] [place] [phone] May, [facility] [address] [id number] [address] [place] [phone] May, [facility] [address] [id number] [address] [place] [address], [place] [address] May, [facility] [address] [id number] [address] [place] [address], [place] [address] May, [facility] [address] [id number] [address] [place] [phone] May, [facility] [address] [id number] [address] [place] [phone] May, [facility] [address] [id number] [address] [place] [address], [place] [address] May, [facility] [address] [id number] [address] [place] [address], [place] [address] May, [facility] [address] [id number] [address] [place] [address], [place] [address] May, [facility] [address] [id number] [address] [place] [address], [place] [address] May, [facility] [address] [id number] [address] [place] [address], [place] [address] Apr, [facility] [address] [id number] [address] [place] [address], [place] [address] Apr, [facility] [address] [id number] [address] [place] [address], [place] [address] Apr, [facility] [address] [id number] [address] [place] [address], [place] [address] Apr, [facility] [address] [id number] [address] [place] [address], [place] [address] Apr, [facility] [address] [id number] [address] [place] [address], [place] [address] Apr, [facility] [address] [id number] [address] [place] [address], [place] [address] Mar, [facility] [address] [id number] [address] [place] [address], [place] [address] Mar, [facility] [address] [id number] [address] [place] [address], [place] [address] Mar, [facility] [address] [id number] [address] [place] [address], [place] [address] Mar, [facility] [address] [id number] [address] [place] [address], [place] [address] Mar, [facility] [address] [id number] [address] [place] [address], [place] [address] Mar, [facility] [address] [id number] [address] [place] [address], [place] [address] Mar, [facility] [address] [id number] [address] [place] [address], [place] [address] Mar, [facility] [address] [id number] [address] [place] [address], [place] [address] Mar, [facility] [address] [id number] [address] [place] [address], [place] [address] Mar, [facility] [address] [id number] [address] [place] [address], [place] [address] Mar, [facility] [address] [id number] [address] [place] [address], [place] [address] Feb, [facility] [address] [id number] [address] [place] [address], [place] [address] Feb, [facility] [address] [id number] [address] [place] [address], [place] [address] Feb, [facility] [address] [id number] [address] [place] [address], [place] [address] Feb, [facility] [address] [id number] [address] [place] [address], [place] [address] Feb, [facility] [address] [id number] [address] [place] [address], [place] [address] Feb, [facility] [address] [id number] [address] [place] [address], [place] [address] Feb, [facility] [address] [id number] [address] [place] [address], [place] [address] Feb, [facility] [address] [id number] [address] [place] [address], [place] [address] Feb, [facility] [address] [id number] [address] [place] [address], [place] [address] Feb, [facility] [address] [id number] [facility] [address] Jan, [facility] [address] [id number] [address] [place] [address], [place] [address] Jan, [facility] [address] [id number] [address] [place] [address], [place] [address] Jan, [facility] [address] [id number] [address] [place] [address], [place] [address] 16 Jan, 2014 [facility] [address] [id number] [address] [place] [address], [place] [address] Jan, [facility] [address] [id number] [address] [place] [address], [place] [address] Jan, [facility] [address] [id number] [address] [place] [address], [place] [address] Jan, [facility] [address] [id number] [address] [place] [address], [place] [address] Dec, [facility] [address] [id number] [address] [place] [address], [place] [address] Dec, [facility] [address] [id number] [address] [place] [address], [place] [address] Dec, [facility] [address] [id number] [address] [place] [address], [place] [address] Dec, [facility] [address] [id number] [address] [place] [address], [place] [address] Dec, [facility] [address] [id number] [address] [place] [address], [place] [address] Dec, [facility] [address] [id number] [address] [place] [address], [place] [address] Dec, [facility] [address] [id number] [address] [place] [address], [place] [address] Dec, [facility] [address] [id number] [address] [place] [address], [place] [address] Oct, [facility] [address] [id number] [address] [place] [address], [place] [address] Oct, [facility] [address] [id number] [address] [place] [address], [place] [address] September, [facility] [address] [id number] [address] [place] [address], [place] [address] September, [facility] [address] [id number] [address] [place] [address], [place] [address] September, [facility] [address] [id number] [address] [place] [address], [place] [address] September, [facility] [address] [id number] [address] [place] [address], [place] [address] September, [facility] [address] [id number] [address] [place] [address], [place] [address] September, [facility] [address] [id number] [address] [place] [address], [place] [address] September, [facility] [address] [id number] [address] [place] [address], [place] [address] Aug, [facility] [address] [id number] [address] [place] [address], [place] [address] Aug, [facility] [address] [id number] [address] [place] [address], [place] [address] Jul, [facility] [address] [id number] [address] [place] [address], [place] [address] Jul, [facility] [address] [id number] [address] [place] [address], [place] [address] Jul, [facility] [address] [id number] [address] [place] [address], [place] [address] 17 Jul, 2013 [facility] [address] [id number] [address] [place] [address], [place] [address] 14 Jul, 2013 [facility] [address] [id number] [address] [place] [address], [place] [address] 14 Jul, 2013 [facility] [address] [id number] [address] [place] [address], [place] [address] 03 Jul, 2013 [facility] [address] [id number] [address] [place] [address], [place] [address] 03 Jul, 2013 [facility] [address] [id number] [address] [place] [address], [place] [address] 15 May, 2013 [facility] [address] [id number] [address] [place] [address], [place] [address] 15 May, 2013 [facility] [address] [id number] [address] [place] [address], [place] [address] May, [facility] [address] [id number] [address] [place] [address], [place] [address] May, [facility] [address] [id number] [address] [place] [address], [place] [address] Apr, [facility] [address] [id number] [address] [place] [address], [place] [address] Mar, [facility] [address] [id number] [address] [place] [address], [place] [address] Mar, [facility] [address] [id number] [address] [place] [address], [place] [address] Mar, [facility] [address] [id number] [address] [place] [address], [place] [address] Mar, [facility] [address] [id number] [address] [place] [address], [place] [address] Mar, [facility] [address] [id number] [address] [place] [address], [place] [address] 18 Mar, 2013 [facility] [address] [id number] [address] [place] [address], [place] [address] 18 Mar, 2013 [facility] [address] [id number] [address] [place] [address], [place] [address] Mar, [facility] [address] [id number] [address] [place] [address], [place] [address] Mar, [facility] [address] [id number] [address] [place] [address], [place] [address] Mar, [facility] [address] [id number] [address] [place] [address], [place] [address] Mar, [facility] [address] [id number] [address] [place] [address], [place] [address] Mar, [facility] [address] [id number] [address] [place] [address], [place] [address] Feb, [facility] [address] [id number] [address] [place] [address], [place] [address] Feb, [facility] [address] [id number] [address] [place] [address], [place] [address] Feb, [facility] [address] [id number] [address] [place] [address], [place] [address] Feb, [facility] [address] [id number] [address] [place] [address], [place] [address] Feb, [facility] [address] [id number] [address] [place] [address], [place] [address] Jan, [facility] [address] [id number] [address] [place] [address], [place] [address] Dec, [facility] [address] [id number] [address] [place] [address], [place] [address] Dec, [facility] [address] [id number] [address] [place] [address], [place] [address] Dec, [facility] [address] [id number] [address] [place] [address], [place] [address] Nov, [facility] [address] [id number] [address] [place] [address], [place] [address] Nov, [facility] [address] [id number] [address] [place] [address], [place] [address] 15 Nov, 2012 [facility] [address] [id number] [address] [place] [address], [place] [address] Oct, [facility] [address] [id number] [address] [place] [address], [place] [address] Oct, [facility] [address] [id number] [address] [place] [address], [place] [address] Oct, [facility] [address] [id number] [address] [place] [address], [place] [address] September, [facility] [address] [id number] [address] [place] [address], [place] [address] September, [facility] [address] [id number] [address] [place] [address], [place] [address] September, [facility] [address] [id number] [address] [place] [address], [place] [address] September, [facility] [address] [id number] [address] [place] [address], [place] [address] September, [facility] [address] [id number] [address] [place] [address], [place] [address] Aug, [facility] [address] [id number] [address] [place] [address], [place] [address] Aug, [facility] [address] [id number] [address] [place] [address], [place] [address] Aug, [facility] [address] [id number] [address] [place] [address], [place] [address] Jul, [facility] [address] [id number] [address] [place] [address], [place] [address] Jul, [facility] [address] [id number] [address] [place] [address], [place] [address] Jul, [facility] [address] [id number] [address] [place] [address], [place] [address] Jul, [facility] [address] [id number] [address] [place] [address], [place] [address] Jul, [facility] [address] [id number] [address] [place] [address], [place] [address] Jul, [facility] [address] [id number] [address] [place] [address], [place] [address] Jul, [facility] [address] [id number] [address] [place] [address], [place] [address] May, [facility] [address] [id number] [address] [place] [address], [place] [address] May, [facility] [address] [id number] [address] [place] [address], [place] [address] May, [facility] [address] [id number] [address] [place] [address], [place] [address] Apr, [facility] [address] [id number] [address] [place] [address], [place] [address] Apr, [facility] [address] [id number] [address] [place] [address], [place] [address] Apr, [facility] [address] [id number] [address] [place] [address], [place] [address] Apr, [facility] [address] [id number] [address] [place] [address], [place] [address] Apr, [facility] [address] [id number] [address] [place] [address], [place] [address] 29 Mar, 2012 [facility] [address] [id number] [address] [place] [address], [place] [address] 29 Mar, 2012 [facility] [address] [id number] [address] [place] [address], [place] [address] 15 Mar, 2012 [facility] [address] [id number] [address] [place], [place] [address], [place] [address] 15 Mar, 2012 [facility] [address] [id number] [address] [place] [address], [place] [address] Feb, [facility] [address] [id number] [address] [place] [address], [place] [address] Feb, [facility] [address] [id number] [address] [place] [address], [place] [address] Feb, [facility] [address] [id number] [address] [place] [address], [place] [address] Feb, [facility] [address] [id number] [address] [place] [address], [place] [address] Feb, [facility] [address] [id number] [address] [place] [address], [place] [address] Jan, [facility] [address] [id number] [address] [place] [address], [place] [address] Dec, [facility] [address] [id number] [address] [place] [address], [place] [address] Dec, [facility] [address] [id number] [address] [place] [address], [place] [address] Dec, [facility] [address] [id number] [address] [place] [address], [place] [address] Nov, [facility] [address] [id number] [address] [place] [address], [place] [address] Nov, [facility] [address] [id number] [address] [place] [address], [place] [address] Nov, [facility] [address] [id number] [address] [place] [address], [place] [address] Oct, [facility] [address] [id number] [address] [place] [address], [place] [address] Oct, [facility] [address] [id number] [address] [place] [address], [place] [address] Oct, [facility] [address] [id number] [address] [place] [address], [place] [address] Oct, [facility] [address] [id number] [address] [place] [address], [place] [address] September, [facility] [address] [id number] [address] [place] [address], [place] [address] September, [facility] [address] [id number] [address] [place] [address], [place] [address] Aug, [facility] [address] [id number] [address] [place] [address], [place] [address] Aug, [facility] [address] [id number] [address] [place] [address], [place] [address] Aug, [facility] [address] [id number] [address] [place] [address], [place] [address] Aug, [facility] [address] [id number] [address] [place] [address], [place] [address] Aug, [facility] [address] [id number] [address] [place] [address], [place] [address] Aug, [facility] [address] [id number] [address] [place] [address], [place] [address] Aug, [facility] [address] [id number] [address] [place] [address], [place] [address] Jul, [facility] [address] [id number] [address] [place] [address], [place] [address] Jul, [facility] [address] [id number] [address] [place] [address], [place] [address] Jul, [facility] [address] [id number] [address] [place] [address], [place] [address] May, [facility] [address] [id number] [address] [place] [address], [place] [address] May, [facility] [address] [id number] [address] [place] [address], [place] [address] May, [facility] [address] [id number] [address] [place] [address] Apr, [facility] [address] [id number] [address] [place] [phone] Apr, [facility] [address] [id number] [address] [place] [id number] Mar, [facility] [address] [id number] [address] [place] [id number] Mar, [facility] [address] [id number] [address] [place] [id number] Mar, [facility] [address] [id number] [address] [place] [phone] Mar, [facility] [address] [id number] [address] [place] [id number] Mar, [facility] [address] [id number] [address] [place] [id number] Mar, [facility] [address] [id number] [address] [place] [id number] Feb, [facility] [address] [id number] [address] [place] [id number] Feb, [facility] [address] [id number] [address] [place] [id number] Feb, IMMUNIZATIONS No Known Immunizations SOCIAL HISTORY [...]
--- OUTSIDE RECORDS SUMMARY | 2020-01-03 08:06 | XMS REPORT ---
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 Name Role Phone FERNY SILVERIO Unavailable PROBLEMS Type Condition ICD9-CM Code [id number] Code Onset Dates Condition S tatus SNOMED Code Problem Hypertension I10 Active 3768899 3 Problem Hypoxia R09.02 Active 115626305 Problem COPD (chronic obstructive pulmonary disease) J44.9 Active 76484625 Problem Lumbar radiculopathy, chronic M54.16 Active 862247417 Problem [facility]FP current use of insulin Z79.4 Active 029952532 Problem Recurrent major depressive disorder, in full remission F33.42 Active 290190574 Problem Hyperlipidemia, unspecified E78.5 Ac tive 46141632 Problem PAD (peripheral artery disease) I73.9 Active 377706785 Problem Type 2 diabetes mellitus with other specified complication E11.69 Active 676428828023 Problem Anxiety F41.9 Active 98399396 Problem Type 2 diabetes mellitus wit h diabetic peripheral angiopathy without gangrene E11.51 Active 594422240 Problem ED (erectile dysfunction) of organic origin N52.9 Active 951052062 Problem Arthritis M19.90 Active 3240360 Problem Morbid (severe) obesity due to excess calories E66 .01 Active 265031643 ALLERGIES No Information ENCOUNTERS Encounter Location Date Diagnosis [address] [id number] [address] Nov, Anxiety F41.[address] [id number] [address] Nov, Back pain M54.9 [facility] [address] [facility] [id number] [address] [place] [id number] Nov, Back pain M54.9 [facility] [address] [facility] [id number] [address] [place] [phone] Nov, [address] [id number] [place] [address] Oct, Anxiety F41.[address] [id number] [address] Oct, [facility] [address] [id number] [address] [place] [id number] 17 Oct, 2019 [facility] [address] [id number] [address] [place] [id number] 15 Oct, 2019 Back pain M54.9 and Lumbar r adiculopathy, chronic M54.16 [facility] [address] [id number] [address] [place] [id number] 04 Oct, 2019 Lumbar radiculopathy, chroni c M54.16 [facility] [address] [id number] [address] [place] [id number] 03 Oct, 2019 Anxiety F41.[address] [id number] [address] Oct, [facility] [address] [id number] [address] [place] [id number] September, Back pain M54.9 and Lumbar r adiculopathy, chronic M54.[address] [id number], [place] [address] September, Anxiety F41.9 [place] [address] [id number] [place] [address] Aug, [facility] [address] [id number] [address] [place] [id number] Aug, Back pain M54.9 and Lumbar r adiculopathy, chronic M54.16 [facility] [address] [id number] [address] [place] [id number] Aug, Anxiety F41.9 ; Back pain M5 4.9 and Lumbar radiculopathy, chronic M54.16 [facility] [address] [id number] [address] [place] [id number] 09 Aug, 2019 Lumbar radiculopathy, chroni c M54.16 ; Anxiety F41.9 ; Type 2 diabetes mellitus with other specified complication E11.69 and Hypertension I10 [facility] [address] [id number] [address] [place] [id number] 30 Jul, 2019 [facility] [address] [id number] [address] [place] [id number] 27 Jul, 2019 Lumbar radiculopathy, chroni c M54.16 ; Back pain M54.9 and Anxiety F41.9 [facility] [address] [id number] [address] [place] [id number] 23 Jul, 2019 [facility] [address] [id number] [address] [place] [phone] 13 Jul, 2019 Anxiety F41.9 [facility] [address] [id number] [address] [place] [id number] 12 Jul, 2019 Anxiety F41.9 [facility] [address] [id number] [address] [place] [id number] 02 Jul, 2019 Back pain M54.9 [facility] [address] [id number] [address] [place] [id number] 02 Jul, 2019 Back pain M54.9 [facility] [address] [id number] [address] [place] [id number] 28 Jul, 2019 Lumbar radiculopathy, chroni c M54.16 [facility] [address] [id number] [address] [place] [id number] 28 Jul, 2019 Back pain M54.9 [facility] [address] [id number] [address] [place] [id number] 07 Jul, 2019 Encounter for Medicare annua [...] diabetes mellitus with other specified complication E11.69 [place] [id number] [id number] [address] [place] [address] Jul, Back pain M54.9 [place] [address] [id number] [address] [place] [address] Jul, Anxiety F41.9 [place] [address] [id number] [address] [place] [phone] May, [place] [address] [facility] [id number] [address] [place] [phone] May, Lumbar radiculopathy, chroni c M54.16 [place] [address] [id number] [address] [place] [phone] May, Back pain M54.9 [place] [address] [id number] [address] [place] [id number] May, [place] [address] [facility] [id number] [address] [place] [address] May, Back pain M54.9 and Anxiety F41.9 [place] [address] [facility] [id number] [address] [place] [address] May, [place] [address] [id number] [address] [place] [address] May, Type 2 diabetes mellitus wit h diabetic peripheral angiopathy without gangrene E11.51 ; Arthritis M19.90 ; ED (erectile dysfunction) of organic origin N52.9 ; Morbid (severe) obesity due to excess calories E66.01 and Lumbar radiculopathy, chronic M54.16 [place] [address] [id number] [address] [place] [address] May, Diabetes E11.9 [facility] [address] [id number] [address] [place] [id number] Apr, [facility] [address] [id number] [address] [place] [phone] Apr, Back pain M54.9 [facility] [address] [facility] [id number] [address] [place] [id number] Apr, [facility] [address] [id number] [address] [place] [phone] Apr, Anxiety F41.9 [facility] [address] [id number] [address] [place] [id number] Apr, Back pain M54.9 and Lumbar r adiculopathy, chronic M54.16 [facility] [address] [facility] [id number] [address] [place] [id number] Apr, Back pain M54.9 ; Anxiety F4 1.9 and Lumbar radiculopathy, chronic M54.16 [facility] [address] [facility] [id number] [address] [place] [phone] Mar, [facility] [address] [facility] [id number] [address] [place] [phone] Mar, [facility] [address] [facility] [id number] [address] [place] [id number] Mar, Back pain M54.9 [facility] [address] [facility] [id number] [address] [place] [phone] Mar, [facility] [address] [facility] [id number] [address] [place] [id number] Feb, Type 2 diabetes mellitus wit h diabetic peripheral angiopathy without gangrene E11.51 ; Lumbar radiculopathy, chronic M54.16 ; ED (erectile dysfunction) of organic origin N52.9 ; Encounter for immunization Z23 ; COPD (chronic obstructive pulmonary disease) J44.9 and Anxiety F41.9 [facility] [address] [id number] [address] [place] [id number] Feb, Back pain M54.9 [facility] [address] [id number] [address] [place] [phone] Feb, [facility] [address] [id number] [address] [place] [id number] Feb, [facility] [address] [id number] [address] [place] [phone] Feb, [facility] [address] [id number] [address] [place] [phone] Feb, Back pain M54.9 [facility] [address] [id number] [address] [place] [phone] Feb, [facility] [address] [id number] [address] [place] [phone] Jan, Anxiety F41.9 [facility] [address] [id number] [address] [place] [id number] Jan, Anxiety F41.9 [facility] [address] [id number] [address] [place] [id number] Jan, [facility] [address] [id number] [address] [place] [phone] Jan, [facility] [address] [id number] [address] [place] [phone] Jan, Back pain M54.9 [facility] [address] [id number] [address] [place] [id number] Jan, [facility] [address] [id number] [address] [place] [id number] Dec, Acute non-recurrent frontal sinusitis J01.10 [facility] [address] [id number] [address] [place] [phone] Dec, Acute non-recurrent frontal sinusitis J01.10 [facility] [address] [id number] [address] [place] [id number] Dec, Type 2 diabetes mellitus wit h diabetic peripheral angiopathy without gangrene E11.51 ; Lumbar radiculopathy, chronic M54.16 ; Recurrent major depressive disorder, in full remission F33.42 and Anxiety F41.9 [facility] [address] [id number] [address] [place] [id number] Dec, [facility] [address] [id number] [address] [place] [phone] Nov, Anxiety F41.9 [facility] [address] [id number] [address] [place] [id number] Nov, [facility] [address] [id number] [address] [place] [id number] Nov, Back pain M54.9 [facility] [address] [id number] [address] [place] [id number] Nov, [facility] [address] [id number] [address] [place] [phone] Nov, Back pain M54.9 [facility] [address] [id number] [address] [place] [phone] Nov, Anxiety F41.9 [facility] [address] [id number] [address] [place] [id number] Nov, [facility] [address] [id number] [address] [place] [id number] Oct, Back pain M54.9 [facility] [address] [id number] [address] [place] [phone] Oct, [facility] [address] [id number] [address] [place] [phone] Oct, [facility] [address] [id number] [address] [place] [id number] Oct, [facility] [address] [id number] [address] [place] [id number] September, Back pain M54.9 [facility] [address] [id number] [address] [place] [phone] September, [facility] [address] [id number] [address] [place] [id number] September, [facility] [address] [id number] [address] [place] [id number] September, [facility] [address] [id number] [address] [place] [id number] Aug, Back pain M54.9 [facility] [address] [id number] [address] [place] [id number] Aug, Anxiety F41.9 [facility] [address] [id number] [address] [place] [phone] Aug, [facility] [address] [facility] [id number] [address] [place] [id number] Aug, Pressure ulcer of other site , stage 3 L89.893 and COPD (chronic obstructive pulmonary disease) J44.9 [facility] [address] [facility] [id number] [address] [place] [address] Aug, History of smoking Z87.891 [facility] [address] [id number] [address] [place] [id number] Jul, Type 2 diabetes mellitus wit h diabetic peripheral angiopathy without gangrene E11.51 [facility] [address] [id number] [address] [place] [id number] Jul, Back pain M54.9 [facility] [address] [id number] [address] [place] [phone] Jul, Anxiety F41.9 [facility] [address] [id number] [address] [place] [id number] Jul, [facility] [address] [facility] [id number] [address] [place] [id number] Jul, Back pain M54.9 [facility] [address] [id number] [address] [place] [id number] 12 Jul, 2018 Back pain M54.9 [facility] [address] [id number] [address] [place] [id number] Jul, Lumbar radiculopathy, chroni c M54.16 ; Hypertension I10 and Type 2 diabetes mellitus with diabetic peripheral angiopathy without gangrene E11.51 [facility] [address] [id number] [address] [place] [id number] Jul, Back pain M54.9 [facility] [address] [id number] [address] [place] [id number] Jul, Back pain M54.9 and Anxiety F41.9 [place] [address] [id number] [address] [place] [phone] Jul, [facility] [address] [id number] [address] [place] [id number] May, Back pain M54.9 and Anxiety F41.9 [facility] [address] [id number] [address] [place] [id number] May, [facility] [address] [id number] [address] [place] [id number] Apr, Radiculopathy of lumbar rhiannon on M54.16 ; Back pain M54.9 and Anxiety F41.9 [facility] [address] [id number] [address] [place] [id number] Apr, Diabetes E11.9 ; Muscle spas m M62.838 and Lumbar radiculopathy, chronic M54.16 [facility] [address] [id number] [address] [place] [phone] Apr, [facility] [address] [id number] [address] [place] [phone] Apr, [facility] [address] [facility] [id number] [address] [place] [phone] 30 Mar, 2018 Back pain M54.9 and Anxiety F41.9 [facility] [address] [facility] [id number] [address] [place] [phone] Mar, [facility] [address] [facility] [id number] [address] [place] [id number] Mar, [facility] [address] [facility] [id number] [place] [id number] Mar, [facility] [address] [facility] [id number] [address] [place] [id number] Mar, Encounter for immunization Z 23 [facility] [address] [facility] [id number] [place] [phone] 31 Feb, 2018 Back pain M54.9 and Anxiety F41.9 [place] [address] [place] [id number] [place] [id number] 04 Feb, 2018 Back pain M54.9 and Anxiety F41.9 [place] [address] [place] [id number] [address] [place] [phone] 06 Jan, 2018 Back pain M54.9 and Anxiety F41.9 [place] [address] [facility] [id number] [place] [phone] Jan, [place] [address] [place] [id number] [address] [place] [phone] Dec, [facility] [address] [facility] [id number] [address] [place] [phone] Dec, Back pain M54.9 and Anxiety F41.9 [place] [address] [place] [id number] [place] [id number] 13 Dec, 2017 Diabetes E11.9 ; Type 2 diab etes mellitus with diabetic peripheral angiopathy without gangrene E11.51 ; Lumbar radiculopathy, chronic M54.16 ; COPD (chronic obstructive pulmonary disease) J44.9 and Anxiety F41.9 [facility] [address] [facility] [id number] [address] [place] [id number] Dec, Back pain M54.9 and Anxiety F41.9 [facility] [address] [facility] [id number] [address] [place] [id number] Nov, Back pain M54.9 and Anxiety F41.9 [facility] [address] [facility] [id number] [address] [place] [phone] Oct, [facility] [address] [facility] [id number] [address] [place] [phone] Oct, Back pain M54.9 and Anxiety F41.9 [place] [address] [facility] [id number] [address] [place] [phone] September, Anxiety F41.9 and Back pain M54.9 [place] [address] [facility] [id number] [address] [place] [address] September, Diabetes E11.9 ; Hypertensio n I10 ; COPD (chronic obstructive pulmonary disease) J44.9 and Lumbar radiculopathy, chronic M54.16 [place] [address] [facility] [id number] [address] [place] [phone] September, Anxiety F41.9 [place] [id number] [facility] [id number] [address] [place] [phone] Aug, [place] [address] [place] [id number] [address] [place] [id number] Aug, [facility] [address] [facility] [id number] [address] [place] [id number] Aug, Anxiety F41.9 and Back pain M54.9 [place] [address] [facility] [id number] [address] [place] [phone] Aug, Medicare annual wellness vis it, initial [...] and MCFP current use of insulin Z79.4 [facility] [address] [id number] [address] [place] [phone] Jul, Back pain M54.9 [facility] [address] [id number] [address] [place] [id number] Jul, [facility] [address] [id number] [address] [place] [id number] Jul, Anxiety F41.9 and Back pain M54.9 [facility] [address] [id number] [address] [place] [id number] Jul, Diabetes E11.9 [facility] [address] [id number] [address] [place] [phone] May, [facility] [address] [id number] [address] [place] [phone] May, Diabetes E11.9 ; Anxiety F41 .9 ; Back pain M54.9 and COPD (chronic obstructive pulmonary disease) J44.9 [facility] [address] [id number] [address] [place] [phone] May, Back pain M54.9 [facility] [address] [id number] [address] [place] [phone] May, [facility] [address] [id number] [address] [place] [id number] Apr, Back pain M54.9 [facility] [address] [id number] [address] [place] [id number] Mar, Back pain M54.9 [facility] [address] [id number] [address] [place] [id number] Mar, [facility] [address] [id number] [address] [place] [id number] 16 Mar, 2017 [facility] [address] [id number] [address] [place] [phone] 14 Mar, 2017 Radiculopathy of lumbar rhiannon on M54.16 [facility] [address] [id number] [address] [place] [phone] 13 Mar, 2017 [facility] [address] [id number] [address] [place] [id number] 07 Mar, 2017 Encounter for immunization Z 23 and Lumbar radiculopathy, chronic M54.16 [facility] [address] [id number] [address] [place] [id number] Mar, Back pain M54.9 and Anxiety F41.9 [facility] [address] [id number] [address] [place] [id number] 10 Feb, 2017 Acute bilateral low back boy n with left-sided sciatica M54.42 and Acute bilateral low back pain with right-sided sciatica M54.41 [facility] [address] [id number] [address] [place] [id number] 06 Feb, 2017 [facility] [address] [id number] [address] [place] [id number] Feb, Back pain M54.9 [facility] [address] [id number] [address] [place] [id number] 05 Jan, 2017 Back pain M54.9 and Anxiety F41.9 [facility] [address] [id number] [address] [place] [id number] 05 Jan, 2017 Diabetes E11.9 [facility] [address] [id number] [address] [place] [id number] Dec, Diabetes E11.9 ; Back pain M 54.9 ; Anxiety F41.9 and Insulin long- term use Z79.4 [facility] [address] [id number] [address] [place] [id number] Dec, Anxiety F41.9 [facility] [address] [id number] [address] [place] [id number] Dec, Back pain M54.9 [facility] [address] [id number] [address] [place] [id number] Nov, Back pain M54.9 [facility] [address] [id number] [address] [place] [id number] Oct, Back pain M54.9 and Anxiety F41.9 [facility] [address] [id number] [address] [place] [id number] September, Back pain M54.9 [facility] [address] [id number] [address] [place] [id number] September, Back pain M54.9 and Anxiety F41.9 [facility] [address] [id number] [address] [place] [id number] Aug, Diabetes E11.9 ; Anxiety F41 .9 ; Back pain M54.9 and PAD (peripheral artery disease) I73.9 [facility] [address] [id number] [address] [place] [id number] Aug, Anxiety F41.9 [facility] [address] [id number] [address] [place] [id number] 14 Aug, 2016 Back pain M54.9 [facility] [address] [id number] [address] [place] [id number] Jul, Back pain M54.9 [facility] [address] [id number] [address] [place] [id number] 13 Jul, 2016 Back pain M54.9 [facility] [address] [id number] 52 [place] [id number] 23 Jul, 2016 Back pain M54.9 [facility] [address] [id number] [address] [place] [id number] 16 Jul, 2016 Dorsalgia M54.9 [facility] [address] [id number] [address] [place] [id number] 14 Jul, 2016 [facility] [address] [id number] [address] [place] [phone] May, Back pain M54.9 [facility] [address] [id number] [address] [place] [id number] May, Diabetes E11.9 ; Anxiety F41 .9 ; Port catheter in place Z95.828 ; Encounter for immunization Z23 and Insulin long-term use Z79.4 [facility] [address] [id number] [address] [place] [id number] Apr, Back pain M54.9 [facility] [address] [id number] [address] [place] [id number] Apr, Back pain M54.9 [facility] [address] [id number] [address] [place] [id number] Apr, [facility] [address] [id number] [address] [place] [phone] Apr, Back pain M54.9 [facility] [address] [id number] [address] [place] [id number] Mar, COPD (chronic obstructive pu lmonary disease) J44.9 [facility] [address] [id number] [address] [place] [id number] Feb, [facility] [address] [id number] [address] [place] [phone] 30 Jan, 2016 [facility] [address] [id number] [address] [place] [phone] Jan, [facility] [address] [id number] [address] [place] [phone] 07 Jan, 2016 [facility] [address] [id number] [address] [place] [id number] 02 Jan, 2016 [facility] [address] [id number] [address] [place] [phone] Dec, Diabetes E11.9 ; Hypoxia R09 .02 and Back pain M54.9 [facility] [address] [id number] [address] [place] [phone] Dec, [facility] [address] [id number] [address] [place] [id number] Nov, [facility] [address] [id number] [address] [place] [phone] Oct, Anxiety F41.9 [facility] [address] [id number] [address] [place] [phone] Oct, Back pain M54.9 [facility] [address] [id number] [address] [place] [phone] September, Back pain M54.9 [facility] [address] [id number] [address] [place] [phone] September, Diabetes E11.9 [facility] [address] [id number] [address] [place] [phone] September, [facility] [address] [id number] [address] [place] [phone] September, Diabetes E11.9 ; Insulin sarai g-term use Z79.4 and Back pain M54.9 [facility] [address] [id number] [address] [place] [phone] Aug, Back pain M54.9 [facility] [address] [id number] [address] [place] [phone] Aug, Back pain M54.9 ; Anxiety F4 1.9 and Arthropathy, unspecified M12.9 [facility] [address] [id number] [address] [place] [phone] Jul, Back pain M54.9 [facility] [address] [id number] [address] [place] [phone] Jul, Anxiety F41.9 [facility] [address] [facility] [id number] [address] [place] [phone] Jul, Back pain M54.9 [facility] [address] [facility] [id number] [address] [place] [phone] Jul, [facility] [address] [facility] [id number] [address] [place] [phone] Jul, [facility] [address] [facility] [id number] [address] [place] [id number] May, Back pain M54.9 ; Diabetes E 11.9 ; Insulin long-term use Z79.4 ; COPD (chronic obstructive pulmonary disease) J44.9 and Hypertension I10 [facility] [address] [facility] [id number] [address] [place] [id number] May, Chronic pain G89.29 [facility] [address] [facility] [id number] [address] [place] [phone] Apr, [facility] [address] [facility] [id number] [address] [place] [phone] Apr, [facility] [address] [facility] [id number] [address] [place] [phone] Mar, [facility] [address] [facility] [id number] [address] [place] [phone] Mar, Encounter for immunization Z 23 and Diabetes E11.9 [facility] [address] [facility] [id number] [address] [place] [phone] Feb, [facility] [address] [facility] [id number] [address] [place] [phone] Feb, [facility] [address] [facility] [id number] [address] [place] [phone] 23 Jan, 2015 [facility] [address] [facility] [id number] [address] [place] [phone] 16 Jan, 2015 [facility] [address] [facility] [id number] [address] [place] [id number] Dec, [facility] [address] [id number] [address] [place] [address], [place] [address] Dec, [facility] [address] [id number] [address] [place] [address], [place] [address] Dec, Unspecified arthropathy, sit e unspecified 716.90 and Diabetes mellitus type 2, uncontrolled 250.02 [facility] [address] [id number] [address] [place] [address], [place] [id number] Dec, [facility] [address] [id number] [address] [place] [address], [place] [phone] Nov, [facility] [address] [id number] [address] [place] [address], [place] [id number] Oct, [facility] [address] [id number] [address] [place] [address], [place] [address] September, [facility] [address] [id number] [address] [place] [address], [place] [address] September, [facility] [address] [id number] [address] [place] [address], [place] [address] September, [facility] [address] [id number] [address] [place] [address], [place] [address] September, [facility] [address] [id number] [address] [place] [address], [place] [address] Aug, [facility] [address] [id number] [address] [place] [address], [place] [address] Aug, [facility] [address] [id number] [address] [place] [address], [place] [id number] Jul, [facility] [address] [id number] [address] [place] [address], [place] [address] 18 Jul, 2014 [facility] [address] [id number] [address] [place] [address], [place] [address] 16 Jul, 2014 [facility] [address] [id number] [address] [place] [address], [place] [address] 16 Jul, 2014 [facility] [address] [id number] [facility] [place] [address] 16 Jul, 2014 [facility] [address] [id number] [address] [place] [address], [place] [address] 16 Jul, 2014 [facility] [address] [id number] [address] [place] [address], [place] [address] 16 Jul, 2014 [facility] [address] [id number] [address] [place] [address], [place] [address] 16 Jul, 2014 [facility] [address] [id number] [address] [place] [address], [place] [address] 16 Jul, 2014 [facility] [address] [id number] [address] [place] [address], [place] [address] 13 Jul, 2014 [facility] [address] [id number] [address] [place] [address], [place] [address] 13 Jul, 2014 [facility] [address] [id number] [address] [place] [address], [place] [address] 09 Jul, 2014 [facility] [address] [id number] [address] [place] [address], [place] [address] 09 Jul, 2014 [facility] [address] [id number] [address] [place] [address], [place] [address] 17 Jul, 2014 [facility] [address] [id number] [address] [place] [address], [place] [address] 17 Jul, 2014 [facility] [address] [id number] [address] [place] [address], [place] [id number] 16 Jul, 2014 [facility] [address] [id number] [address] [place] [address], [place] [address] 16 Jul, 2014 [facility] [address] [id number] [address] [place] [address], [place] [address] 16 Jul, 2014 [facility] [address] [id number] [address] [place] [address], [place] [address] 16 Jul, 2014 [facility] [address] [id number] [address] [place] [address], [place] [address] 16 Jul, 2014 [facility] [address] [id number] [address] [place] [address], [place] [address] Jul, 2014 [facility] [address] [id number] [address] [place] [address], [place] [address] 16 Jul, 2014 [facility] [address] [id number] [address] [place] [address], [place] [address] Jul, 2014 [facility] [address] [id number] [address] [place] [address], [place] [address] Jul, 2014 [facility] [address] [id number] [address] [place] [address], [place] [address] Jul, 2014 [facility] [address] [id number] [address] [place] [address], [place] [address] Jul, 2014 [facility] [address] [id number] [address] [place] [address], [place] [address] Jul, 2014 [facility] [address] [id number] [address] [place] [address], [place] [address] Jul, 2014 [facility] [address] [id number] [address] [place] [address], [place] [address] Jul, 2014 [facility] [address] [id number] [address] [place] [phone] May, [facility] [address] [id number] [address] [place] [phone] May, [facility] [address] [id number] [address] [place] [address], [place] [address] May, [facility] [address] [id number] [address] [place] [address], [place] [address] May, [facility] [address] [id number] [address] [place] [phone] May, [facility] [address] [id number] [address] [place] [phone] May, [facility] [address] [id number] [address] [place] [address], [place] [address] May, [facility] [address] [id number] [address] [place] [address], [place] [address] May, [facility] [address] [id number] [address] [place] [address], [place] [address] May, [facility] [address] [id number] [address] [place] [address], [place] [address] May, [facility] [address] [id number] [address] [place] [address], [place] [address] Apr, [facility] [address] [id number] [address] [place] [address], [place] [address] Apr, [facility] [address] [id number] [address] [place] [address], [place] [address] Apr, [facility] [address] [id number] [address] [place] [address], [place] [address] Apr, [facility] [address] [id number] [address] [place] [address], [place] [address] Apr, [facility] [address] [id number] [address] [place] [address], [place] [address] Apr, [facility] [address] [id number] [address] [place] [address], [place] [address] Mar, [facility] [address] [id number] [address] [place] [address], [place] [address] Mar, [facility] [address] [id number] [address] [place] [address], [place] [address] Mar, [facility] [address] [id number] [address] [place] [address], [place] [address] Mar, [facility] [address] [id number] [address] [place] [address], [place] [address] Mar, [facility] [address] [id number] [address] [place] [address], [place] [address] Mar, [facility] [address] [id number] [address] [place] [address], [place] [address] Mar, [facility] [address] [id number] [address] [place] [address], [place] [address] Mar, [facility] [address] [id number] [address] [place] [address], [place] [address] Mar, [facility] [address] [id number] [address] [place] [address], [place] [address] Mar, [facility] [address] [id number] [address] [place] [address], [place] [address] Mar, [facility] [address] [id number] [address] [place] [address], [place] [address] Feb, [facility] [address] [id number] [address] [place] [address], [place] [address] Feb, [facility] [address] [id number] [address] [place] [address], [place] [address] Feb, [facility] [address] [id number] [address] [place] [address], [place] [address] Feb, [facility] [address] [id number] [address] [place] [address], [place] [address] Feb, [facility] [address] [id number] [address] [place] [address], [place] [address] Feb, [facility] [address] [id number] [address] [place] [address], [place] [address] Feb, [facility] [address] [id number] [address] [place] [address], [place] [address] Feb, [facility] [address] [id number] [address] [place] [address], [place] [address] Feb, [facility] [address] [id number] [address] [place] [address], [place] [address] Feb, [facility] [address] [id number] [facility] [place] [address] Jan, [facility] [address] [id number] [address] [place] [address], [place] [address] Jan, [facility] [address] [id number] [address] [place] [address], [place] [address] Jan, [facility] [address] [id number] [address] [place] [address], [place] [address] 16 Jan, 2014 [facility] [address] [id number] [address] [place] [address], [place] [address] Jan, [facility] [address] [id number] [address] [place] [address], [place] [address] Jan, [facility] [address] [id number] [address] [place] [address], [place] [address] Jan, [facility] [address] [id number] [address] [place] [address], [place] [address] Dec, [facility] [address] [id number] [address] [place] [address], [place] [address] Dec, [facility] [address] [id number] [address] [place] [address], [place] [address] Dec, [facility] [address] [id number] [address] [place] [address], [place] [address] Dec, [facility] [address] [id number] [address] [place] [address], [place] [address] Dec, [facility] [address] [id number] [address] [place] [address], [place] [address] Dec, [facility] [address] [id number] [address] [place] [address], [place] [address] Dec, [facility] [address] [id number] [address] [place] [address], [place] [address] Dec, [facility] [address] [id number] [address] [place] [address], [place] [address] Oct, [facility] [address] [id number] [address] [place] [address], [place] [address] Oct, [facility] [address] [id number] [address] [place] [address], [place] [address] September, [facility] [address] [id number] [address] [place] [address], [place] [address] September, [facility] [address] [id number] [address] [place] [address], [place] [address] September, [facility] [address] [id number] [address] [place] [address], [place] [address] September, [facility] [address] [id number] [address] [place] [address], [place] [address] September, [facility] [address] [id number] [address] [place] [address], [place] [address] September, [facility] [address] [id number] [address] [place] [address], [place] [address] September, [facility] [address] [id number] [address] [place] [address], [place] [address] Aug, [facility] [address] [id number] [address] [place] [address], [place] [address] Aug, [facility] [address] [id number] [address] [place] [address], [place] [address] Jul, [facility] [address] [id number] [address] [place] [address], [place] [address] Jul, [facility] [address] [id number] [address] [place] [address], [place] [address] Jul, [facility] [address] [id number] [address] [place] [address], [place] [address] 17 Jul, 2013 [facility] [address] [id number] [address] [place] [address], [place] [address] 14 Jul, 2013 [facility] [address] [id number] [address] [place] [address], [place] [address] 14 Jul, 2013 [facility] [address] [id number] [address] [place] [address], [place] [address] 03 Jul, 2013 [facility] [address] [id number] [address] [place] [address], [place] [address] 03 Jul, 2013 [facility] [address] [id number] [address] [place] [address], [place] [address] 15 May, 2013 [facility] [address] [id number] [address] [place] [address], [place] [address] 15 May, 2013 [facility] [address] [id number] [address] [place] [address], [place] [address] May, [facility] [address] [id number] [address] [place] [address], [place] [address] May, [facility] [address] [id number] [address] [place] [address], [place] [address] Apr, [facility] [address] [id number] [address] [place] [address], [place] [address] Mar, [facility] [address] [id number] [address] [place] [address], [place] [address] Mar, [facility] [address] [id number] [address] [place] [address], [place] [address] Mar, [facility] [address] [id number] [address] [place] [address], [place] [address] Mar, [facility] [address] [id number] [address] [place] [address], [place] [address] Mar, [facility] [address] [id number] [address] [place] [address], [place] [address] 18 Mar, 2013 [facility] [address] [id number] [address] [place] [address], [place] [address] 18 Mar, 2013 [facility] [address] [id number] [address] [place] [address], [place] [address] Mar, [facility] [address] [id number] [address] [place] [address], [place] [address] Mar, [facility] [address] [id number] [address] [place] [address], [place] [address] Mar, [facility] [address] [id number] [address] [place] [address], [place] [address] Mar, [facility] [address] [id number] [address] [place] [address], [place] [address] Mar, [facility] [address] [id number] [address] [place] [address], [place] [address] Feb, [facility] [address] [id number] [address] [place] [address], [place] [address] Feb, [facility] [address] [id number] [address] [place] [address], [place] [address] Feb, [facility] [address] [id number] [address] [place] [address], [place] [address] Feb, [facility] [address] [id number] [address] [place] [address], [place] [address] Feb, [facility] [address] [id number] [address] [place] [address], [place] [address] Jan, [facility] [address] [id number] [address] [place] [address], [place] [address] Dec, [facility] [address] [id number] [address] [place] [address], [place] [address] Dec, [facility] [address] [id number] [address] [place] [address], [place] [address] Dec, [facility] [address] [id number] [address] [place] [address], [place] [address] Nov, [facility] [address] [id number] [address] [place] [address], [place] [address] Nov, [facility] [address] [id number] [address] [place] [address], [place] [address] 15 Nov, 2012 [facility] [address] [id number] [address] [place] [address], [place] [address] Oct, [facility] [address] [id number] [address] [place] [address], [place] [address] Oct, [facility] [address] [id number] [address] [place] [address], [place] [address] Oct, [facility] [address] [id number] [address] [place] [address], [place] [address] September, [facility] [address] [id number] [address] [place] [address], [place] [address] September, [facility] [address] [id number] [address] [place] [address], [place] [address] September, [facility] [address] [id number] [address] [place] [address], [place] [address] September, [facility] [address] [id number] [address] [place] [address], [place] [address] September, [facility] [address] [id number] [address] [place] [address], [place] [address] Aug, [facility] [address] [id number] [address] [place] [address], [place] [address] Aug, [facility] [address] [id number] [address] [place] [address], [place] [address] Aug, [facility] [address] [id number] [address] [place] [address], [place] [address] Jul, [facility] [address] [id number] [address] [place] [address], [place] [address] Jul, [facility] [address] [id number] [address] [place] [address], [place] [address] Jul, [facility] [address] [id number] [address] [place] [address], [place] [address] Jul, [facility] [address] [id number] [address] [place] [address], [place] [address] Jul, [facility] [address] [id number] [address] [place] [address], [place] [address] Jul, [facility] [address] [id number] [address] [place] [address], [place] [address] Jul, [facility] [address] [id number] [address] [place] [address], [place] [address] May, [facility] [address] [id number] [address] [place] [address], [place] [address] May, [facility] [address] [id number] [address] [place] [address], [place] [address] May, [facility] [address] [id number] [address] [place] [address], [place] [address] Apr, [facility] [address] [id number] [address] [place] [address], [place] [address] Apr, [facility] [address] [id number] [address] [place] [address], [place] [address] Apr, [facility] [address] [id number] [address] [place] [address], [place] [address] Apr, [facility] [address] [id number] [address] [place] [address], [place] [address] Apr, [facility] [address] [id number] [address] [place] [address], [place] [address] 29 Mar, 2012 [facility] [address] [id number] [address] [place] [address], [place] [address] 29 Mar, 2012 [facility] [address] [id number] [address] [place] [address], [place] [address] 15 Mar, 2012 [facility] [address] [id number] [address] [place] [address], [place] [address] 15 Mar, 2012 [facility] [address] [id number] [address] [place] [address], [place] [address] Feb, [facility] [address] [id number] [address] [place] [address], [place] [address] Feb, [facility] [address] [id number] [address] [place] [address], [place] [address] Feb, [facility] [address] [id number] [address] [place] [address], [place] [address] Feb, [facility] [address] [id number] [address] [place] [address], [place] [address] Feb, [facility] [address] [id number] [address] [place] [address], [place] [address] Jan, [facility] [address] [id number] [address] [place] [address], [place] [address] Dec, [facility] [address] [id number] [address] [place] [address], [place] [address] Dec, [facility] [address] [id number] [address] [place] [address], [place] [address] Dec, [facility] [address] [id number] [address] [place] [address], [place] [address] Nov, [facility] [address] [id number] [address] [place] [address], [place] [address] Nov, [facility] [address] [id number] [address] [place] [address], [place] [address] Nov, [facility] [address] [id number] [address] [place] [address], [place] [address] Oct, [facility] [address] [id number] [address] [place] [address], [place] [address] Oct, [facility] [address] [id number] [address] [place] [address], [place] [address] Oct, [facility] [address] [id number] [address] [place] [address], [place] [address] Oct, [facility] [address] [id number] [address] [place] [address], [place] [address] September, [facility] [address] [id number] [address] [place] [address], [place] [address] September, [facility] [address] [id number] [address] [place] [address], [place] [address] Aug, [facility] [address] [id number] [address] [place] [address], [place] [address] Aug, [facility] [address] [id number] [address] [place] [address], [place] [address] Aug, [facility] [address] [id number] [address] [place] [address], [place] [address] Aug, [facility] [address] [id number] [address] [place] [address], [place] [address] Aug, [facility] [address] [id number] [address] [place] [address], [place] [address] Aug, [facility] [address] [id number] [address] [place] [address], [place] [address] Aug, [facility] [address] [id number] [address] [place] [address], [place] [address] Jul, [facility] [address] [id number] [address] [place] [address], [place] [address] Jul, [facility] [address] [id number] [address] [place] [address], [place] [address] Jul, [facility] [address] [id number] [address] [place] [address], [place] [address] May, [facility] [address] [id number] [address] [place] [address], [place] [address] May, [facility] [address] [id number] [address] [place] [address], [place] [address] May, [facility] [address] [id number] [address] [place] [id number] 09 Apr, 2011 [facility] [address] [id number] [address] [place] [id number] Apr, [facility] [address] [id number] [address] [place] [id number] Mar, [facility] [address] [id number] [address] [place] [id number] Mar, [facility] [address] [id number] [address] [place] [phone] Mar, [facility] [address] [id number] [address] [place] [id number] Mar, [facility] [address] [id number] [address] [place] [phone] Mar, [facility] [address] [id number] [address] [place] [phone] Mar, [facility] [address] [id number] [address] [place] [id number] Feb, [facility] [address] [id number] [address] [place] [id number] Feb, [facility] [address] [id number] [address] [place] [id number] Feb, IMMUNIZATIONS No Known Immunizations SOCIAL HISTORY Never Assessed REASON FOR VISIT PLAN OF CARE VITAL SIGNS MEDICATIONS Unknown Medications RESULTS No Results PROCEDURES Procedure Date Ordered Result Body Site LIPID PANEL August 23, 2012 COMPREHEN METABOLIC PANEL August 23, 2012 VENIPUNCT, ROUTINE* August 23, 2012 INSTRUCTIONS MEDICATIONS ADMINISTERED No Known Medications MEDICAL [...] infections x 3 2016 Hospitalization History [facility] - right big t oe removed 2018
--- OUTSIDE RECORDS SUMMARY | 2020-01-03 08:07 | XMS REPORT ---
Author Author Tra SILVERIO Organization [facility] Address [address] [place] [address] Care Team Providers Care Shoe Stock Associate Name Role Phone FERNY SILVERIO Unavailable PROBLEMS Type Condition ICD9-CM Code BEV65-XW Code Onset Dates Condition S tatus SNOMED Code Problem Hypertension I10 Active 5141349 3 Problem Hypoxia R09.02 Active 034553368 Problem COPD (chronic obstructive pulmonary disease) J44.9 Active 54626525 Problem Lumbar radiculopathy, chronic M54.16 Active 439222005 Problem shelter current use of insulin Z79.4 Active 310335049 Problem Recurrent major depressive disorder, in full remission F33.42 Active 087646427 Problem Hyperlipidemia, unspecified E78.5 Ac tive 33743694 Problem PAD (peripheral artery disease) I73.9 Active 646202314 Problem Type 2 diabetes mellitus with other specified complication E11.69 Active 465784282324 Problem Anxiety F41.9 Active 51938688 Problem Type 2 diabetes mellitus wit h diabetic peripheral angiopathy without gangrene E11.51 Active 411382921 Problem ED (erectile dysfunction) of organic origin N52.9 Active 190968523 Problem Arthritis M19.90 Active 8716693 Problem Morbid (severe) obesity due to excess calories E66 .01 Active 955838903 ALLERGIES No Information ENCOUNTERS Encounter Location Date Diagnosis [address] [id number] [address] Nov, Back pain M54.9 [facility] [address] [facility] [id number] [address] [place] [address] Nov, Back pain M54.9 [facility] [address] [facility] [id number] [address] [place] [address] Nov, [facility] [address] [facility] [address] [id number] [address] Oct, Anxiety F41.[address] [id number] [place] [address] Oct, [facility] [address] [id number] [address] [place] [phone] 17 Oct, 2019 [facility] [address] [id number] [address] [place] [address] 15 Oct, 2019 Back pain M54.9 and Lumbar r adiculopathy, chronic M54.16 [facility] [address] [id number] [address] [place] [id number] 04 Oct, 2019 Lumbar radiculopathy, chroni c M54.16 [facility] [address] [id number] [address] [place] [address] 03 Oct, 2019 Anxiety F41.[address] 340[address] [id number], [place] [address] Oct, [facility] [address] [id number] [address] [place] [address] September, Back pain M54.9 and Lumbar r adiculopathy, chronic M54.[address] [id number], [place] [address] September, Anxiety F41.[address] [id number] [place] [address] Aug, [facility] [address] [id number] [address] [place] [id number] 24 Aug, 2019 Back pain M54.9 and Lumbar r adiculopathy, chronic M54.16 [facility] [address] [id number] [address] [place] [phone] 10 Aug, 2019 Anxiety F41.9 ; Back pain M5 4.9 and Lumbar radiculopathy, chronic M54.16 [facility] [address] [id number] [address] [place] [phone] 09 Aug, 2019 Lumbar radiculopathy, chroni c M54.16 ; Anxiety F41.9 ; Type 2 diabetes mellitus with other specified complication E11.69 and Hypertension I10 [facility] [address] [id number] [address] [place] [phone] 30 Jul, 2019 [facility] [address] [id number] [address] [place] [phone] 27 Jul, 2019 Lumbar radiculopathy, chroni c M54.16 ; Back pain M54.9 and Anxiety F41.9 [facility] [address] [id number] [address] [place] [address] 23 Jul, 2019 [facility] [address] [id number] [address] [place] [address] 13 Jul, 2019 Anxiety F41.9 [facility] [address] [id number] [address] [place] [phone] 12 Jul, 2019 Anxiety F41.9 [facility] [address] [id number] [address] [place] [address] Jul, Back pain M54.9 [facility] [address] [id number] [address] [place] [phone] 02 Jul, 2019 Back pain M54.9 [facility] [address] [id number] [address] [place] [id number] 28 Jul, 2019 Lumbar radiculopathy, chroni c M54.16 [facility] [address] [id number] [address] [place] [phone] 28 Jul, 2019 Back pain M54.9 [facility] [address] [id number] [address] [place] [phone] 07 Jul, 2019 [facility]counter [facility] Z[facility].00 ; COPD (chronic obstructive [...] diabetes mellitus with other specified complication E11.69 [facility] [address] [id number] [address] [place] [address] Jul, Back pain M54.9 [facility] [address] [id number] [address] [place] [address] Jul, Anxiety F41.9 [facility] [address] [id number] [address] [place] [address] May, [facility] [address] [id number] [address] [place] [address] May, Lumbar radiculopathy, chroni c M54.16 [facility] [address] [id number] [address] [place] [address] May, Back pain M54.9 [facility] [address] [id number] [address] [place] [address] May, [facility] [address] [id number] [address] [place] [address] May, Back pain M54.9 and Anxiety F41.9 [facility] [address] [id number] [address] [place] [address] May, [facility] [address] [id number] [address] [place] [address] May, Type 2 diabetes mellitus wit h diabetic peripheral angiopathy without gangrene E11.51 ; Arthritis M19.90 ; ED (erectile dysfunction) of organic origin N52.9 ; Morbid (severe) obesity due to excess calories E66.01 and Lumbar radiculopathy, chronic M54.16 [facility] [address] [id number] [address] [place] [address] May, Diabetes E11.9 [facility] [address] [id number] [address] [place] [address] Apr, [facility] [address] [id number] [address] [place] [address] Apr, Back pain M54.9 [facility] [address] [id number] [address] [place] [address] Apr, [facility] [address] [id number] [address] [place] [address] Apr, Anxiety F41.9 [facility] [address] [id number] [address] [place] [address] Apr, Back pain M54.9 and Lumbar r adiculopathy, chronic M54.16 [facility] [address] [id number] [address] [place] [address] Apr, Back pain M54.9 ; Anxiety F4 1.9 and Lumbar radiculopathy, chronic M54.16 [facility] [address] [facility] [id number] [address] [place] [address] Mar, [facility] [address] [id number] [address] [place] [phone] Mar, [facility] [address] [facility] [id number] [address] [place] [address] Mar, Back pain M54.9 [facility] [address] [id number] [address] [place] [address] Mar, [facility] [address] [facility] [id number] [address] [place] [address] Feb, Type 2 diabetes mellitus wit h diabetic peripheral angiopathy without gangrene E11.51 ; Lumbar radiculopathy, chronic M54.16 ; ED (erectile dysfunction) of organic origin N52.9 ; Encounter for immunization Z23 ; COPD (chronic obstructive pulmonary disease) J44.9 and Anxiety F41.9 [facility] [address] [id number] [address] [place] [id number] 09 Feb, 2019 Back pain M54.9 [facility] [address] [id number] [address] [place] [phone] 08 Feb, 2019 [facility] [address] [id number] [address] [place] [phone] Feb, [facility] [address] [id number] [address] [place] [phone] Feb, [facility] [address] [id number] [address] [place] [id number] Feb, Back pain M54.9 [facility] [address] [id number] [address] [place] [phone] Feb, [facility] [address] [id number] [address] [place] [address] Jan, Anxiety F41.9 [facility] [address] [id number] [address] [place] [address] Jan, Anxiety F41.9 [facility] [address] [id number] [address] [place] [phone] Jan, [facility] [address] [id number] [address] [place] [address] Jan, [facility] [address] [id number] [address] [place] [address] Jan, Back pain M54.9 [facility] [address] [id number] [address] [place] [address] Jan, [facility] [address] [id number] [address] [place] [id number] Dec, Acute non-recurrent frontal sinusitis J01.10 [facility] [address] [id number] [address] [place] [phone] Dec, Acute non-recurrent frontal sinusitis J01.10 [facility] [address] [id number] [address] [place] [phone] 16 Dec, 2018 Type 2 diabetes mellitus wit h diabetic peripheral angiopathy without gangrene E11.51 ; Lumbar radiculopathy, chronic M54.16 ; Recurrent major depressive disorder, in full remission F33.42 and Anxiety F41.9 [facility] [address] [id number] [address] [place] [phone] Dec, [facility] [address] [id number] [address] [place] [address] Nov, Anxiety F41.9 [facility] [address] [id number] [address] [place] [address] Nov, [facility] [address] [id number] [address] [place] [address] Nov, Back pain M54.9 [facility] [address] [id number] [address] [place] [phone] Nov, [facility] [address] [id number] [address] [place] [address] Nov, Back pain M54.9 [facility] [address] [id number] [address] [place] [address] Nov, Anxiety F41.9 [facility] [address] [id number] [address] [place] [phone] Nov, [facility] [address] [id number] [address] [place] [address] Oct, Back pain M54.9 [facility] [address] [id number] [address] [place] [address] Oct, [facility] [address] [id number] [address] [place] [phone] Oct, [facility] [address] [id number] [address] [place] [phone] Oct, [facility] [address] [id number] [address] [place] [address] September, Back pain M54.9 [facility] [address] [id number] [address] [place] [id number] September, [facility] [address] [id number] [address] [place] [phone] September, [facility] [address] [id number] [address] [place] [phone] September, [facility] [address] [id number] [address] [place] [address] Aug, Back pain M54.9 [facility] [address] [id number] [address] [place] [address] Aug, Anxiety F41.9 [facility] [address] [id number] [address] [place] [address] Aug, [facility] [address] [facility] [id number] [address] [place] [address] Aug, Pressure ulcer of other site , stage 3 L89.893 and COPD (chronic obstructive pulmonary disease) J44.9 [facility] [address] [id number] [address] [place] [address] Aug, History of smoking Z87.891 [facility] [address] [facility] [id number] [address] [place] [address] Jul, Type 2 diabetes mellitus wit h diabetic peripheral angiopathy without gangrene E11.51 [facility] [address] [id number] [address] [place] [address] Jul, Back pain M54.9 [facility] [address] [id number] [address] [place] [address] Jul, Anxiety F41.9 [facility] [address] [id number] [address] [place] [id number] Jul, [facility] [address] [facility] [id number] [address] [place] [address] Jul, Back pain M54.9 [facility] [address] [facility] [id number] [address] [place] [address] Jul, Back pain M54.9 [facility] [address] [id number] [address] [place] [phone] Jul, Lumbar radiculopathy, chroni c M54.16 ; Hypertension I10 and Type 2 diabetes mellitus with diabetic peripheral angiopathy without gangrene E11.51 [facility] [address] [id number] [address] [place] [address] Jul, Back pain M54.9 [facility] [address] [id number] [address] [place] [address] Jul, Back pain M54.9 and Anxiety F41.9 [place] [address] [id number] [address] [place] [address] Jul, [facility] [address] [id number] [address] [place] [phone] May, Back pain M54.9 and Anxiety F41.9 [facility] [address] [id number] [address] [place] [address] May, [facility] [address] [id number] [address] [place] [address] Apr, Radiculopathy of lumbar rhiannon on M54.16 ; Back pain M54.9 and Anxiety F41.9 [facility] [address] [id number] [address] [place] [address] Apr, Diabetes E11.9 ; Muscle spas m M62.838 and Lumbar radiculopathy, chronic M54.16 [facility] [address] [id number] [address] [place] [address] Apr, [facility] [address] [id number] [address] [place] [address] Apr, [facility] [address] [id number] [address] [place] [address] Mar, Back pain M54.9 and Anxiety F41.9 [place] [address] [id number] [address] [place] [address] Mar, [facility] [address] [id number] [address] [place] [address] Mar, [facility] [address] [id number] [address] [place] [phone] Mar, [facility] [address] [facility] [id number] [address] [place] [address] Mar, Encounter for immunization Z 23 [facility] [address] [id number] [address] [place] [address] Feb, Back pain M54.9 and Anxiety F41.9 [facility] [address] [id number] [address] [place] [address] Feb, Back pain M54.9 and Anxiety F41.9 [facility] [address] [facility] [id number] [address] [place] [address] Jan, Back pain M54.9 and Anxiety F41.9 [facility] [address] [id number] [address] [place] [address] Jan, [facility] [address] [id number] [address] [place] [address] Dec, [facility] [address] [id number] [address] [place] [address] Dec, Back pain M54.9 and Anxiety F41.9 [facility] [address] [id number] [address] [place] [phone] 13 Dec, 2017 Diabetes E11.9 ; Type 2 diab etes mellitus with diabetic peripheral angiopathy without gangrene E11.51 ; Lumbar radiculopathy, chronic M54.16 ; COPD (chronic obstructive pulmonary disease) J44.9 and Anxiety F41.9 [facility] [address] [id number] [address] [place] [address] Dec, Back pain M54.9 and Anxiety F41.9 [facility] [address] [id number] [address] [place] [address] Nov, Back pain M54.9 and Anxiety F41.9 [facility] [address] [id number] [address] [place] [phone] Oct, [facility] [address] [id number] [address] [place] [address] Oct, Back pain M54.9 and Anxiety F41.9 [facility] [address] [id number] [address] [place] [address] September, Anxiety F41.9 and Back pain M54.9 [place] [address] [id number] [address] [place] [address] September, Diabetes E11.9 ; Hypertensio n I10 ; COPD (chronic obstructive pulmonary disease) J44.9 and Lumbar radiculopathy, chronic M54.16 [place] [address] [id number] [address] [place] [address] September, Anxiety F41.9 [place] [address] [id number] [address] [place] [address] Aug, [facility] [address] [id number] [address] [place] [address] Aug, [place] [address] [id number] [address] [place] [address] Aug, Anxiety F41.9 and Back pain M54.9 [facility] [address] [id number] [address] [place] [id number] Aug, Medicare annual wellness vis it, initial [...] and shelter current use of insulin Z79.4 [facility] [address] [id number] [address] [place] [phone] Jul, Back pain M54.9 [facility] [address] [id number] [address] [place] [phone] Jul, [facility] [address] [id number] [address] [place] [address] Jul, Anxiety F41.9 and Back pain M54.9 [facility] [address] [id number] [address] [place] [address] Jul, Diabetes E11.9 [facility] [address] [id number] [address] [place] [address] May, [facility] [address] [id number] [address] [place] [address] May, Diabetes E11.9 ; Anxiety F41 .9 ; Back pain M54.9 and COPD (chronic obstructive pulmonary disease) J44.9 [facility] [address] [id number] [address] [place] [address] May, Back pain M54.9 [facility] [address] [id number] [address] [place] [address] May, [facility] [address] [id number] [address] [place] [address] Apr, Back pain M54.9 [facility] [address] [id number] [address] [place] [address] Mar, Back pain M54.9 [facility] [address] [id number] [address] [place] [phone] Mar, [facility] [address] [id number] [address] [place] [address] 16 Mar, 2017 [facility] [address] [id number] [address] [place] [address] 14 Mar, 2017 Radiculopathy of lumbar rhiannon on M54.16 [facility] [address] [facility] [id number] [address] [place] [address] 13 Mar, 2017 [facility] [address] [place] [id number] [place] [address] 07 Mar, 2017 Encounter for immunization Z 23 and Lumbar radiculopathy, chronic M54.16 [facility] [address] [place] [id number] [address] [place] [address] Mar, Back pain M54.9 and Anxiety F41.9 [facility] [address] [place] [id number] [place] [address] 10 Feb, 2017 Acute bilateral low back boy n with left-sided sciatica M54.42 and Acute bilateral low back pain with right-sided sciatica M54.41 [place] [address] [address] Feb, [facility] [address] [place] [id number] [place] [address] Feb, Back pain M54.9 [place] [address] [place] [id number] [place] [phone] 05 Jan, 2017 Back pain M54.9 and Anxiety F41.9 [place] [id number] [place] [address] 05 Jan, 2017 Diabetes E11.9 [place] [address] [place] [id number] [place] [address] 14 Dec, 2016 Diabetes E11.9 ; Back pain M 54.9 ; Anxiety F41.9 and Insulin long- term use Z79.4 [place] [address] [facility] [id number] [address] [place] [phone] Dec, Anxiety F41.9 [place] [address] [place] [id number] [address] [place] [phone] Dec, Back pain M54.9 [place] [address] [id number] [address] [place] [address] Nov, Back pain M54.9 [facility] [address] [id number] [address] [place] [phone] Oct, Back pain M54.9 and Anxiety F41.9 [facility] [address] [id number] [address] [place] [phone] September, Back pain M54.9 [facility] [address] [id number] [address] [place] [address] September, Back pain M54.9 and Anxiety F41.9 [facility] [address] [id number] [address] [place] [phone] Aug, Diabetes E11.9 ; Anxiety F41 .9 ; Back pain M54.9 and PAD (peripheral artery disease) I73.9 [facility] [address] [id number] [address] [place] [phone] Aug, Anxiety F41.9 [facility] [address] [id number] [address] [place] [phone] Aug, Back pain M54.9 [facility] [address] [id number] [address] [place] [phone] 23 Jul, 2016 Back pain M54.9 [facility] [address] [id number] [address] [place] [phone] Jul, Back pain M54.9 [facility] [address] [id number] [address] [place] [phone] 23 Jul, 2016 Back pain M54.9 [facility] [address] [id number] [address] [place] [id number] 16 Jul, 2016 Dorsalgia M54.9 [facility] [address] [id number] [address] [place] [phone] 14 Jul, 2016 [facility] [address] [id number] [address] [place] [phone] May, Back pain M54.9 [facility] [address] [id number] [address] [place] [phone] May, Diabetes E11.9 ; Anxiety F41 .9 ; Port catheter in place Z95.828 ; Encounter for immunization Z23 and Insulin long-term use Z79.4 [facility] [address] [id number] [address] [place] [phone] Apr, Back pain M54.9 [facility] [address] [id number] [address] [place] [id number] Apr, Back pain M54.9 [facility] [address] [id number] [address] [place] [phone] Apr, [facility] [address] [id number] [address] [place] [phone] Apr, Back pain M54.9 [facility] [address] [id number] [address] [place] [phone] Mar, COPD (chronic obstructive pu lmonary disease) J44.9 [facility] [address] [id number] [address] [place] [phone] Feb, [facility] [address] [id number] [address] [place] [phone] Jan, [facility] [address] [id number] [address] [place] [phone] Jan, [facility] [address] [id number] 50 [place] [id number] Jan, [facility] [address] [id number] [address] [place] [id number] Jan, [facility] [address] [id number] [address] [place] [id number] Dec, Diabetes E11.9 ; Hypoxia R09 .02 and Back pain M54.9 [facility] [address] [id number] [address] [place] [id number] Dec, [facility] [address] [id number] [address] [place] [id number] Nov, [facility] [address] [id number] [address] [place] [id number] 15 Oct, 2015 Anxiety F41.9 [facility] [address] [id number] [address] [place] [id number] Oct, Back pain M54.9 [facility] [address] [id number] [address] [place] [id number] September, Back pain M54.9 [facility] [address] [id number] [address] [place] [id number] September, Diabetes E11.9 [facility] [address] [id number] [address] [place] [id number] September, [facility] [address] [id number] [address] [place] [address] September, Diabetes E11.9 ; Insulin sarai g-term use Z79.4 and Back pain M54.9 [facility] [address] [id number] [address] [place] [id number] Aug, Back pain M54.9 [facility] [address] [id number] [address] [place] [id number] Aug, Back pain M54.9 ; Anxiety F4 1.9 and Arthropathy, unspecified M12.9 [facility] [address] [id number] [address] [place] [id number] Jul, Back pain M54.9 [facility] [address] [id number] [address] [place] [id number] Jul, Anxiety F41.9 [facility] [address] [facility] [id number] [address] [place] [id number] Jul, Back pain M54.9 [facility] [address] [facility] [id number] [address] [place] [id number] 17 Jul, 2015 [facility] [address] [facility] [id number] [address] [place] [id number] Jul, [facility] [address] [facility] [id number] [address] [place] [id number] May, Back pain M54.9 ; Diabetes E 11.9 ; Insulin long-term use Z79.4 ; COPD (chronic obstructive pulmonary disease) J44.9 and Hypertension I10 [facility] [address] [facility] [id number] [address] [place] [id number] May, Chronic pain G89.29 [facility] [address] [facility] [id number] [address] [place] [id number] Apr, [facility] [address] [facility] [id number] [address] [place] [id number] Apr, [facility] [address] [facility] [id number] [address] [place] [id number] Mar, [facility] [address] [facility] [id number] [address] [place] [id number] Mar, Encounter for immunization Z 23 and Diabetes E11.9 [facility] [address] [facility] [id number] [address] [place] [id number] Feb, [facility] [address] [facility] [id number] [address] [place] [id number] Feb, [facility] [address] [facility] [id number] [address] [place] [id number] 23 Jan, 2015 [facility] [address] [facility] [id number] [address] [place] [id number] 16 Jan, 2015 [facility] [address] [facility] [id number] [address] [place] [id number] Dec, [facility] [address] [facility] [id number] [address] [place] [id number] Dec, [facility] [address] [id number] [address] [place] [id number] Dec, Unspecified arthropathy, sit e unspecified 716.90 and Diabetes mellitus type 2, uncontrolled 250.02 [facility] [address] [id number] [address] [place] [address], [place] [address] Dec, [facility] [address] [id number] [address] [place] [phone] Nov, [facility] [address] [id number] [address] [place] [address], [place] [address] Oct, [facility] [address] [id number] [address] [place] [address], [place] [address] September, [facility] [address] [id number] [address] [place] [address], [place] [address] September, [facility] [address] [id number] [address] [place] [address], [place] [address] September, [facility] [address] [id number] [address] [place] [address], [place] [address] September, [facility] [address] [id number] [address] [place] [address], [place] [address] Aug, [facility] [address] [id number] [address] [place] [address], [place] [address] Aug, [facility] [address] [id number] [address] [place] [address], [place] [address] Jul, [facility] [address] [id number] [address] [place] [phone] 18 Jul, 2014 [facility] [address] [id number] [address] [place] [address], [place] [address] 16 Jul, 2014 [facility] [address] [id number] [address] [place] [address], [place] [address] 16 Jul, 2014 [facility] [address] [id number] [address] [place] [id number] 16 Jul, 2014 [facility] [address] [id number] [address] [place] [address], [place] [address] 16 Jul, 2014 [facility] [address] [id number] [address] [place] [address], [place] [id number] 16 Jul, 2014 [facility] [address] [id number] [address] [place] [address], [place] [address] 16 Jul, 2014 [facility] [address] [id number] [address] [place] [address], [place] [address] 16 Jul, 2014 [facility] [address] [id number] [address] [place] [address], [place] [id number] 13 Jul, 2014 [facility] [address] [id number] [address] [place] [address], [place] [address] 13 Jul, 2014 [facility] [address] [id number] [address] [place] [address], [place] [address] 09 Jul, 2014 [facility] [address] [id number] [address] [place] [address], [place] [id number] 09 Jul, 2014 [facility] [address] [id number] [address] [place] [address], [place] [address] 17 Jul, 2014 [facility] [address] [id number] [address] [place] [address], [place] [address] 17 Jul, 2014 [facility] [address] [id number] [address] [place] [address], [place] [address] 16 Jul, 2014 [facility] [address] [id number] [address] [place] [address], [place] [address] 16 Jul, 2014 [facility] [address] [id number] [address] [place] [address], [place] [address] 16 Jul, 2014 [facility] [address] [id number] [address] [place] [address], [place] [address] 16 Jul, 2014 [facility] [address] [id number] [address] [place] [address], [place] [address] 16 Jul, 2014 [facility] [address] [id number] [address] [place] [address], [place] [id number] 16 Jul, 2014 [facility] [address] [id number] [address] [place] [address], [place] [address] Jul, 2014 [facility] [address] [id number] [address] [place] [address], [place] [address] 16 Jul, 2014 [facility] [address] [id number] [address] [place] [address], [place] [address] Jul, 2014 [facility] [address] [id number] [address] [place] [address], [place] [address] Jul, 2014 [facility] [address] [id number] [address] [place] [address], [place] [address] Jul, 2014 [facility] [address] [id number] [address] [place] [address], [place] [address] Jul, 2014 [facility] [address] [id number] [address] [place] [address], [place] [address] Jul, 2014 [facility] [address] [id number] [address] [place] [address], [place] [address] Jul, [facility] [address] [id number] [address] [place] [address], [place] [address] May, [facility] [address] [id number] [address] [place] [address], [place] [address] May, [facility] [address] [id number] [address] [place] [address], [place] [address] May, [facility] [address] [id number] [address] [place] [address], [place] [address] May, [facility] [address] [id number] [address] [place] [address], [place] [address] May, [facility] [address] [id number] [address] [place] [address], [place] [address] May, [facility] [address] [id number] [address] [place] [address], [place] [address] May, [facility] [address] [id number] [address] [place] [address], [place] [address] May, [facility] [address] [id number] [address] [place] [address], [place] [address] May, [facility] [address] [id number] [address] [place] [address], [place] [address] May, [facility] [address] [id number] [address] [place] [address], [place] [address] Apr, [facility] [address] [id number] [address] [place] [address], [place] [address] Apr, [facility] [address] [id number] [address] [place] [address], [place] [address] Apr, [facility] [address] [id number] [address] [place] [address], [place] [address] Apr, [facility] [address] [id number] [address] [place] [address], [place] [address] Apr, [facility] [address] [id number] [address] [place] [address], [place] [address] Apr, [facility] [address] [id number] [address] [place] [address], [place] [address] Mar, [facility] [address] [id number] [address] [place] [address], [place] [address] Mar, [facility] [address] [id number] [address] [place] [address], [place] [address] Mar, [facility] [address] [id number] [address] [place] [address], [place] [address] Mar, [facility] [address] [id number] [address] [place] [address], [place] [address] Mar, [facility] [address] [id number] [address] [place] [address], [place] [address] Mar, [facility] [address] [id number] [address] [place] [address], [place] [address] Mar, [facility] [address] [id number] [address] [place] [address], [place] [address] 17 Mar, 2014 [facility] [address] [id number] [address] [place] [address], [place] [address] Mar, [facility] [address] [id number] [address] [place] [address], [place] [address] Mar, [facility] [address] [id number] [address] [place] [address], [place] [address] Mar, [facility] [address] [id number] [address] [place] [address], [place] [address] Feb, [facility] [address] [id number] [address] [place] [address], [place] [address] Feb, [facility] [address] [id number] [address] [place] [address], [place] [address] Feb, [facility] [address] [id number] [address] [place] [address], [place] [address] Feb, [facility] [address] [id number] [address] [place] [address], [place] [address] Feb, [facility] [address] [id number] [address] [place] [address], [place] [address] Feb, [facility] [address] [id number] [address] [place] [address], [place] [address] Feb, [facility] [address] [id number] [address] [place] [address], [place] [address] Feb, [facility] [address] [id number] [address] [place] [address], [place] [address] Feb, [facility] [address] [id number] [address] [place] [address], [place] [address] Feb, [facility] [address] [id number] [address] [place] [address], [place] [address] Jan, [facility] [address] [id number] [address] [place] [address], [place] [address] 22 Jan, 2013 [facility] [address] [id number] [address] [place] [address], [place] [address] 16 Jan, 2013 [facility] [address] [id number] [address] [place] [address], [place] [address] 16 Jan, 2013 [facility] [address] [id number] [address] [place] [address], [place] [address] 12 Jan, 2014 [facility] [address] [id number] [address] [place] [address], [place] [address] Jan, [facility] [address] [id number] [address] [place] [address], [place] [address] Jan, [facility] [address] [id number] [address] [place] [address], [place] [address] Dec, [facility] [address] [id number] [address] [place] [address], [place] [address] Dec, [facility] [address] [id number] [address] [place] [address], [place] [address] Dec, [facility] [address] [id number] [address] [place] [address], [place] [address] Dec, [facility] [address] [id number] [address] [place] [address], [place] [address] Dec, [facility] [address] [id number] [address] [place] [address], [place] [address] Dec, [facility] [address] [id number] [address] [place] [address], [place] [address] Dec, [facility] [address] [id number] [address] [place] [address], [place] [address] Dec, [facility] [address] [id number] [address] [place] [address], [place] [address] Oct, [facility] [address] [id number] [address] [place] [id number] Oct, [facility] [address] [id number] [address] [place] [address], [place] [address] September, [facility] [address] [id number] [address] [place] [address], [place] [address] September, [facility] [address] [id number] [address] [place] [address], [place] [address] September, [facility] [address] [id number] [address] [place] [address], [place] [address] September, [facility] [address] [id number] [address] [place] [address], [place] [address] September, [facility] [address] [id number] [address] [place] [address], [place] [address] September, [facility] [address] [id number] [address] [place] [address], [place] [address] September, [facility] [address] [id number] [address] [place] [address], [place] [address] Aug, [facility] [address] [id number] [address] [place] [address], [place] [address] Aug, [facility] [address] [id number] [address] [place] [address], [place] [address] Jul, [facility] [address] [id number] [address] [place] [address], [place] [address] Jul, [facility] [address] [id number] [address] [place] [address], [place] [address] Jul, [facility] [address] [id number] [address] [place] [address], [place] [address] Jul, [facility] [address] [id number] [address] [place] [address], [place] [address] Jul, [facility] [address] [id number] [address] [place] [address], [place] [address] Jul, [facility] [address] [id number] [address] [place] [address], [place] [address] Jul, [facility] [address] [id number] [address] [place] [address], [place] [address] Jul, [facility] [address] [id number] [address] [place] [address], [place] [address] May, [facility] [address] [id number] [address] [place] [address], [place] [address] May, [facility] [address] [id number] [address] [place] [address], [place] [address] May, [facility] [address] [id number] [address] [place] [address], [place] [address] May, [facility] [address] [id number] [address] [place] [address], [place] [address] Apr, [facility] [address] [id number] [address] [place] [address], [place] [address] Mar, [facility] [address] [id number] [address] [place] [address], [place] [address] Mar, [facility] [address] [id number] [address] [place] [address], [place] [address] Mar, [facility] [address] [id number] [address] [place] [address], [place] [address] Mar, [facility] [address] [id number] [address] [place] [address], [place] [address] Mar, [facility] [address] [id number] [address] [place] [address], [place] [address] Mar, [facility] [address] [id number] [address] [place] [address], [place] [address] Mar, [facility] [address] [id number] [address] [place] [address], [place] [address] Mar, [facility] [address] [id number] [address] [place] [id number] Mar, [facility] [address] [id number] [address] [place] [address], [place] [address] Mar, [facility] [address] [id number] [address] [place] [address], [place] [address] Mar, [facility] [address] [id number] [address] [place] [address], [place] [address] Mar, [facility] [address] [id number] [address] [place] [address], [place] [address] Feb, [facility] [address] [id number] [address] [place] [address], [place] [address] Feb, [facility] [address] [id number] [address] [place] [address], [place] [address] Feb, [facility] [address] [id number] [address] [place] [address], [place] [id number] Feb, [facility] [address] [id number] [address] [place] [address], [place] [address] Feb, [facility] [address] [id number] [address] [place] [address], [place] [address] Jan, [facility] [address] [id number] [address] [place] [address], [place] [address] Dec, [facility] [address] [id number] [address] [place] [address], [place] [address] Dec, [facility] [address] [id number] [address] [place] [address], [place] [address] Dec, [facility] [address] [id number] [address] [place] [address], [place] [address] Nov, [facility] [address] [id number] [address] [place] [address], [place] [address] Nov, [facility] [address] [id number] [address] [place] [address], [place] [address] Nov, [facility] [address] [id number] [facility] [place] [id number] 27 Oct, 2012 [facility] [address] [id number] [address] [place] [address], [place] [address] Oct, [facility] [address] [id number] [address] [place] [address], [place] [address] Oct, [facility] [address] [id number] [address] [place] [address], [place] [address] September, [facility] [address] [id number] [address] [place] [address], [place] [address] September, [facility] [address] [id number] [address] [place] [address], [place] [address] September, [facility] [address] [id number] [address] [place] [address], [place] [address] September, [facility] [address] [id number] [address] [place] [address], [place] [address] September, [facility] [address] [id number] [address] [place] [address], [place] [id number] Aug, [facility] [address] [id number] [address] [place] [address], [place] [address] Aug, [facility] [address] [id number] [address] [place] [address], [place] [address] Aug, [facility] [address] [id number] [address] [place] [address], [place] [address] Jul, [facility] [address] [id number] [address] [place] [address], [place] [address] Jul, [facility] [address] [id number] [address] [place] [address], [place] [address] Jul, [facility] [address] [id number] [address] [place] [address], [place] [address] Jul, [facility] [address] [id number] [address] [place] [address], [place] [address] Jul, [facility] [address] [id number] [address] [place] [address], [place] [address] Jul, [facility] [address] [id number] [address] [place] [address], [place] [address] Jul, [facility] [address] [id number] [address] [place] [address], [place] [address] May, [facility] [address] [id number] [address] [place] [address], [place] [address] May, [facility] [address] [id number] [address] [place] [address], [place] [address] May, [facility] [address] [id number] [address] [place] [address], [place] [id number] Apr, [facility] [address] [id number] [address] [place] [address], [place] [id number] Apr, [facility] [address] [id number] [address] [place] [address], [place] [address] Apr, [facility] [address] [id number] [address] [place] [address], [place] [address] Apr, [facility] [address] [id number] [address] [place] [address], [place] [address] Apr, [facility] [address] [id number] [address] [place] [address], [place] [address] Mar, [facility] [address] [id number] [address] [place] [address], [place] [id number] 29 Mar, 2012 [facility] [address] [id number] [address] [place] [address], [place] [address] Mar, [facility] [address] [id number] [address] [place] [address], [place] [id number] 15 Mar, 2012 [facility] [address] [id number] [address] [place] [address], [place] [address] Feb, [facility] [address] [id number] [address] [place] [address], [place] [id number] Feb, [facility] [address] [address] [id number] [address] [place] [address], [place] [id number] Feb, [facility] [address] [id number] [address] [place] [address], [place] [id number] Feb, [facility] [address] [id number] [address] [place] [address], [place] [id number] Feb, [facility] [address] [id number] [address] [place] [address], [place] [id number] Jan, [facility] [address] [id number] [address] [place] [address], [place] [id number] Dec, [facility] [address] [id number] [address] [place] [address], [place] [id number] Dec, [facility] [address] [id number] [address] [place] [address], [place] [address] Dec, [facility] [address] [id number] [address] [place] [address], [place] [address] Nov, [facility] [address] [id number] [address] [place] [address], [place] [id number] Nov, [facility] [address] [id number] [address] [place] [address], [place] [address] Nov, [facility] [address] [id number] [address] [place] [address], [place] [id number] Oct, [facility] [address] [id number] [address] [place] [address], [place] [id number] Oct, [facility] [address] [id number] [address] [place] [address], [place] [id number] Oct, [facility] [address] [id number] [address] [place] [address], [place] [address] Oct, [facility] [address] [id number] [address] [place] [address], [place] [address] September, [facility] [address] [id number] [address] [place] [address], [place] [id number] September, [facility] [address] [id number] [address] [place] [address], [place] [address] Aug, [facility] [address] [id number] [address] [place] [address], [place] [address] Aug, [facility] [address] [id number] [address] [place] [address], [place] [address] Aug, [facility] [address] [id number] [address] [place] [address], [place] [id number] Aug, [facility] [address] [id number] [address] [place] [address], [place] [address] Aug, [facility] [address] [id number] [address] [place] [address], [place] [address] Aug, [facility] [place] [address] [id number] [address] [place] [address], [place] [id number] Aug, [facility] [address] [id number] [address] [place] [address], [place] [address] Jul, [facility] [address] [id number] [address] [place] [address], [place] [address] Jul, [facility] [address] [id number] [address] [place] [address], [place] [id number] Jul, [facility] [address] [id number] [address] [place] [address], [place] [address] May, [facility] [address] [id number] [address] [place] [address], [place] [address] May, [facility] [address] [id number] [address] [place] [address], [place] [address] May, [facility] [address] [id number] [address] [place] [address], [place] [address] Apr, [facility] [address] [id number] [address] [place] [id number] Apr, [facility] [address] [id number] [address] [place] [id number] Mar, [facility] [address] [id number] [address] [place] [id number] Mar, [facility] [address] [id number] [address] [place] [id number] Mar, [facility] [address] [id number] [address] [place] [id number] Mar, [facility] [address] [id number] [address] [place] [id number] Mar, [facility] [address] [id number] [address] [place] [id number] Mar, [facility] [address] [id number] [address] [place] [id number] Feb, [facility] [address] [id number] [address] [place] [phone] Feb, [facility] [address] [id number] [address] [place] [id number] Feb, IMMUNIZATIONS No Known Immunizations SOCIAL HISTORY [...] foot infections x 3 2015 Hospitalization History [facility] - right big t oe removed 2018
--- OUTSIDE RECORDS SUMMARY | 2020-01-03 08:08 | XMS REPORT ---
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 Role Phone FERNY SILVERIO Unavailable PROBLEMS Type Condition ICD9-CM Code [id number] Code Onset Dates Condition S tatus SNOMED Code Problem Hypertension I10 Active 2817740 3 Problem Hypoxia R09.02 Active 067869959 Problem COPD (chronic obstructive pulmonary disease) J44.9 Active 36619432 Problem Lumbar radiculopathy, chronic M54.16 Active 214172718 Problem retirement current use of insulin Z79.4 Active 748428911 Problem Recurrent major depressive disorder, in full remission F33.42 Active 249486586 Problem Hyperlipidemia, unspecified E78.5 Ac tive 89711597 Problem PAD (peripheral artery disease) I73.9 Active 274776357 Problem Type 2 diabetes mellitus with other specified complication E11.69 Active 629285991092 Problem Anxiety F41.9 Active 43962752 Problem Type 2 diabetes mellitus wit h diabetic peripheral angiopathy without gangrene E11.51 Active 430993993 Problem ED (erectile dysfunction) of organic origin N52.9 Active 610155489 Problem Arthritis M19.90 Active 1827860 Problem Morbid (severe) obesity due to excess calories E66 .01 Active 330396327 ALLERGIES No Information ENCOUNTERS Encounter Location Date Diagnosis [address] [id number] [address] Nov, Back pain M54.9 [facility] [address] [facility] [id number] [address] [place] [address] Nov, Back pain M54.9 [facility] [address] [facility] [id number] [address] [place] [address] Nov, [facility] [address] [facility] 340[address] [id number] [address] Oct, Anxiety F41.[address] 340B [id number] [place] [address] Oct, [facility] [address] [id number] [address] [place] [address] 17 Oct, 2019 [facility] [address] [id number] [address] [place] [address] 15 Oct, 2019 Back pain M54.9 and Lumbar r adiculopathy, chronic M54.16 [facility] [address] [id number] [address] [place] [address] 04 Oct, 2019 Lumbar radiculopathy, chroni c M54.16 [facility] [address] [id number] [address] [place] [address] 03 Oct, 2019 Anxiety F41.[address] 340B [id number] [address] Oct, [facility] [address] [id number] [address] [place] [address] September, Back pain M54.9 and Lumbar r adiculopathy, chronic M54.[address] 340B [id number] [address] September, Anxiety F41.[address] [id number] [address] Aug, [facility] [address] [id number] [address] [place] [address] 24 Aug, 2019 Back pain M54.9 and Lumbar r adiculopathy, chronic M54.16 [facility] [address] [id number] [address] [place] [address] 10 Aug, 2019 Anxiety F41.9 ; Back pain M5 4.9 and Lumbar radiculopathy, chronic M54.16 [facility] [address] [id number] [address] [place] [address] 09 Aug, 2019 Lumbar radiculopathy, chroni c M54.16 ; Anxiety F41.9 ; Type 2 diabetes mellitus with other specified complication E11.69 and Hypertension I10 [facility] [address] [id number] [address] [place] [id number] 30 Jul, 2019 [facility] [address] [id number] [address] [place] [address] 27 Jul, 2019 Lumbar radiculopathy, chroni c M54.16 ; Back pain M54.9 and Anxiety F41.9 [facility] [address] [id number] [address] [place] [address] 23 Jul, 2019 [facility] [address] [id number] [address] [place] [address] 13 Jul, 2019 Anxiety F41.9 [facility] [address] [id number] [address] [place] [address] 12 Jul, 2019 Anxiety F41.9 [facility] [address] [id number] [address] [place] [address] Jul, Back pain M54.9 [facility] [address] [id number] [address] [place] [address] 02 Jul, 2019 Back pain M54.9 [facility] [address] [id number] [address] [place] [address] 28 Jul, 2019 Lumbar radiculopathy, chroni c M54.16 [facility] [address] [id number] [address] [place] [address] 28 Jul, 2019 Back pain M54.9 [facility] [address] [id number] [address] [place] [address] 07 Jul, 2019 [facility] ; COPD [...] other specified complication E11.69 [facility] [address] [id number] [address] [place] [address] Jul, Back pain M54.9 [facility] [address] [id number] [address] [place] [address] Jul, Anxiety F41.9 [facility] [address] [id number] [address] [place] [address] May, [facility] [address] [id number] [address] [place] [address] May, Lumbar radiculopathy, chroni c M54.16 [facility] [address] [id number] [address] [place] [address] May, Back pain M54.9 [facility] [address] [id number] [address] [place] [address] May, [facility] [address] [id number] [address] [place] [address] May, Back pain M54.9 and Anxiety F41.9 [facility] [address] [id number] [address] [place] [address] May, [facility] [address] [id number] [address] [place] [address] May, Type 2 diabetes mellitus wit h diabetic peripheral angiopathy without gangrene E11.51 ; Arthritis M19.90 ; ED (erectile dysfunction) of organic origin N52.9 ; Morbid (severe) obesity due to excess calories E66.01 and Lumbar radiculopathy, chronic M54.16 [facility] [address] [id number] [address] [place] [address] May, Diabetes E11.9 [facility] [address] [id number] [address] [place] [address] Apr, [facility] [address] [id number] [address] [place] [address] Apr, Back pain M54.9 [facility] [address] [id number] [address] [place] [address] Apr, [facility] [address] [id number] [address] [place] [address] Apr, Anxiety F41.9 [facility] [address] [id number] [address] [place] [address] Apr, Back pain M54.9 and Lumbar r adiculopathy, chronic M54.16 [facility] [address] [id number] [address] [place] [address] Apr, Back pain M54.9 ; Anxiety F4 1.9 and Lumbar radiculopathy, chronic M54.16 [facility] [address] [facility] [id number] [address] [place] [address] Mar, [facility] [address] [id number] [address] [place] [address] Mar, [facility] [address] [facility] [id number] [address] [place] [address] Mar, Back pain M54.9 [facility] [address] [id number] [address] [place] [address] Mar, [facility] [address] [facility] [id number] [address] [place] [address] Feb, Type 2 diabetes mellitus wit h diabetic peripheral angiopathy without gangrene E11.51 ; Lumbar radiculopathy, chronic M54.16 ; ED (erectile dysfunction) of organic origin N52.9 ; Encounter for immunization Z23 ; COPD (chronic obstructive pulmonary disease) J44.9 and Anxiety F41.9 [facility] [address] [id number] [address] [place] [address] 09 Feb, 2019 Back pain M54.9 [facility] [address] [id number] [address] [place] [address] 08 Feb, 2019 [facility] [address] [id number] [address] [place] [address] Feb, [facility] [address] [id number] [address] [place] [address] Feb, [facility] [address] [id number] [address] [place] [address] Feb, Back pain M54.9 [facility] [address] [id number] [address] [place] [address] Feb, [facility] [address] [id number] [address] [place] [address] Jan, Anxiety F41.9 [facility] [address] [id number] [address] [place] [address] Jan, Anxiety F41.9 [facility] [address] [id number] [address] [place] [address] Jan, [facility] [address] [id number] [address] [place] [address] Jan, [facility] [address] [id number] [address] [place] [address] Jan, Back pain M54.9 [facility] [address] [id number] [address] [place] [address] Jan, [facility] [address] [id number] [address] [place] [address] Dec, Acute non-recurrent frontal sinusitis J01.10 [facility] [address] [id number] [address] [place] [address] Dec, Acute non-recurrent frontal sinusitis J01.10 [facility] [address] [id number] [address] [place] [address] 16 Dec, 2018 Type 2 diabetes mellitus wit h diabetic peripheral angiopathy without gangrene E11.51 ; Lumbar radiculopathy, chronic M54.16 ; Recurrent major depressive disorder, in full remission F33.42 and Anxiety F41.9 [facility] [address] [id number] [address] [place] [address] Dec, [facility] [address] [id number] [address] [place] [address] Nov, Anxiety F41.9 [facility] [address] [id number] [address] [place] [address] Nov, [facility] [address] [id number] [address] [place] [address] Nov, Back pain M54.9 [facility] [address] [id number] [address] [place] [address] Nov, [facility] [address] [id number] [address] [place] [address] Nov, Back pain M54.9 [facility] [address] [id number] [address] [place] [address] Nov, Anxiety F41.9 [facility] [address] [id number] [address] [place] [address] Nov, [facility] [address] [id number] [address] [place] [address] Oct, Back pain M54.9 [facility] [address] [id number] [address] [place] [address] Oct, [facility] [address] [id number] [address] [place] [address] Oct, [facility] [address] [id number] [address] [place] [address] Oct, [facility] [address] [id number] [address] [place] [address] September, Back pain M54.9 [facility] [address] [id number] [address] [place] [address] September, [facility] [address] [id number] [address] [place] [address] September, [facility] [address] [id number] [address] [place] [address] September, [facility] [address] [id number] [address] [place] [address] Aug, Back pain M54.9 [facility] [address] [id number] [address] [place] [address] Aug, Anxiety F41.9 [facility] [address] [id number] [address] [place] [address] Aug, [facility] [address] [facility] [id number] [address] [place] [address] Aug, Pressure ulcer of other site , stage 3 L89.893 and COPD (chronic obstructive pulmonary disease) J44.9 [facility] [address] [id number] [address] [place] [address] Aug, History of smoking Z87.891 [facility] [address] [facility] [id number] [address] [place] [address] Jul, Type 2 diabetes mellitus wit h diabetic peripheral angiopathy without gangrene E11.51 [facility] [address] [id number] [address] [place] [address] Jul, Back pain M54.9 [facility] [address] [id number] [address] [place] [address] Jul, Anxiety F41.9 [facility] [address] [id number] [address] [place] [address] Jul, [facility] [address] [facility] [id number] [address] [place] [address] Jul, Back pain M54.9 [facility] [address] [facility] [id number] [address] [place] [address] Jul, Back pain M54.9 [facility] [address] [id number] [address] [place] [address] Jul, Lumbar radiculopathy, chroni c M54.16 ; Hypertension I10 and Type 2 diabetes mellitus with diabetic peripheral angiopathy without gangrene E11.51 [facility] [address] [id number] [address] [place] [address] Jul, Back pain M54.9 [facility] [address] [id number] [address] [place] [address] Jul, Back pain M54.9 and Anxiety F41.9 [place] [address] [id number] [address] [place] [address] Jul, [facility] [address] [id number] [address] [place] [address] May, Back pain M54.9 and Anxiety F41.9 [facility] [address] [id number] [address] [place] [address] May, [facility] [address] [id number] [address] [place] [address] Apr, Radiculopathy of lumbar rhiannon on M54.16 ; Back pain M54.9 and Anxiety F41.9 [facility] [address] [id number] [address] [place] [address] Apr, Diabetes E11.9 ; Muscle spas m M62.838 and Lumbar radiculopathy, chronic M54.16 [facility] [address] [id number] [address] [place] [address] Apr, [facility] [address] [id number] [address] [place] [address] Apr, [facility] [address] [id number] [address] [place] [address] Mar, Back pain M54.9 and Anxiety F41.9 [place] [address] [id number] [address] [place] [address] Mar, [facility] [address] [id number] [address] [place] [address] Mar, [facility] [address] [id number] [address] [place] [address] Mar, [facility] [address] [facility] [id number] [address] [place] [address] Mar, Encounter for immunization Z 23 [facility] [address] [id number] [address] [place] [address] Feb, Back pain M54.9 and Anxiety F41.9 [facility] [address] [id number] [address] [place] [address] Feb, Back pain M54.9 and Anxiety F41.9 [facility] [address] [facility] [id number] [address] [place] [address] Jan, Back pain M54.9 and Anxiety F41.9 [facility] [address] [id number] [address] [place] [address] Jan, [facility] [address] [id number] [address] [place] [address] Dec, [facility] [address] [id number] [address] [place] [address] Dec, Back pain M54.9 and Anxiety F41.9 [facility] [address] [id number] [address] [place] [address] 13 Dec, 2017 Diabetes E11.9 ; Type 2 diab etes mellitus with diabetic peripheral angiopathy without gangrene E11.51 ; Lumbar radiculopathy, chronic M54.16 ; COPD (chronic obstructive pulmonary disease) J44.9 and Anxiety F41.9 [facility] [address] [id number] [address] [place] [address] Dec, Back pain M54.9 and Anxiety F41.9 [facility] [address] [id number] [address] [place] [address] Nov, Back pain M54.9 and Anxiety F41.9 [facility] [address] [id number] [address] [place] [address] Oct, [facility] [address] [id number] [address] [place] [address] Oct, Back pain M54.9 and Anxiety F41.9 [facility] [address] [id number] [address] [place] [address] September, Anxiety F41.9 and Back pain M54.9 [place] [address] [id number] [address] [place] [address] September, Diabetes E11.9 ; Hypertensio n I10 ; COPD (chronic obstructive pulmonary disease) J44.9 and Lumbar radiculopathy, chronic M54.16 [place] [address] [id number] [address] [place] [address] September, Anxiety F41.9 [place] [address] [id number] [address] [place] [address] Aug, [facility] [address] [id number] [address] [place] [address] Aug, [place] [address] [id number] [address] [place] [address] Aug, Anxiety F41.9 and Back pain M54.9 [facility] [address] [id number] [address] [place] [address] Aug, Medicare annual wellness vis it, initial [...] and retirement current use of insulin Z79.4 [facility] [address] [id number] [address] [place] [address] Jul, Back pain M54.9 [facility] [address] [id number] [address] [place] [address] Jul, [facility] [address] [id number] [address] [place] [address] Jul, Anxiety F41.9 and Back pain M54.9 [facility] [address] [id number] [address] [place] [address] Jul, Diabetes E11.9 [facility] [address] [id number] [address] [place] [address] May, [facility] [address] [id number] [address] [place] [address] May, Diabetes E11.9 ; Anxiety F41 .9 ; Back pain M54.9 and COPD (chronic obstructive pulmonary disease) J44.9 [facility] [address] [id number] [address] [place] [address] May, Back pain M54.9 [facility] [address] [id number] [address] [place] [address] May, [facility] [address] [id number] [address] [place] [address] Apr, Back pain M54.9 [facility] [address] [id number] [address] [place] [address] Mar, Back pain M54.9 [facility] [address] [id number] [address] [place] [address] Mar, [facility] [address] [id number] [address] [place] [address] 16 Mar, 2017 [facility] [address] [id number] [address] [place] [address] 14 Mar, 2017 Radiculopathy of lumbar rhiannon on M54.16 [facility] [address] [facility] [id number] [address] [place] [address] 13 Mar, 2017 [facility] [address] [place] [id number] [place] [address] 07 Mar, 2017 Encounter for immunization Z 23 and Lumbar radiculopathy, chronic M54.16 [facility] [address] [place] [id number] [address] [place] [address] Mar, Back pain M54.9 and Anxiety F41.9 [facility] [address] [place] [id number] [place] [address] 10 Feb, 2017 Acute bilateral low back boy n with left-sided sciatica M54.42 and Acute bilateral low back pain with right-sided sciatica M54.41 [place] [address] [address] Feb, [facility] [address] [place] [id number] [place] [address] Feb, Back pain M54.9 [place] [address] [place] [id number] [place] [address] 05 Jan, 2017 Back pain M54.9 and Anxiety F41.9 [place] [id number] [place] [address] 05 Jan, 2017 Diabetes E11.9 [place] [address] [place] [id number] [place] [phone] 14 Dec, 2016 Diabetes E11.9 ; Back pain M 54.9 ; Anxiety F41.9 and Insulin long- term use Z79.4 [place] [address] [facility] [id number] [address] [place] [phone] Dec, Anxiety F41.9 [place] [address] [place] [id number] [address] [place] [phone] Dec, Back pain M54.9 [place] [address] [id number] [address] [place] [phone] Nov, Back pain M54.9 [facility] [address] [id number] [address] [place] [phone] Oct, Back pain M54.9 and Anxiety F41.9 [facility] [address] [id number] [address] [place] [phone] September, Back pain M54.9 [facility] [address] [id number] [address] [place] [phone] September, Back pain M54.9 and Anxiety F41.9 [facility] [address] [id number] [address] [place] [phone] Aug, Diabetes E11.9 ; Anxiety F41 .9 ; Back pain M54.9 and PAD (peripheral artery disease) I73.9 [facility] [address] [id number] [address] [place] [id number] Aug, Anxiety F41.9 [facility] [address] [id number] [address] [place] [phone] Aug, Back pain M54.9 [facility] [address] [id number] [address] [place] [id number] 23 Jul, 2016 Back pain M54.9 [facility] [address] [id number] [address] [place] [id number] Jul, Back pain M54.9 [facility] [address] [id number] [address] [place] [id number] 23 Jul, 2016 Back pain M54.9 [facility] [address] [id number] [address] [place] [id number] 16 Jul, 2016 Dorsalgia M54.9 [facility] [address] [id number] [address] [place] [id number] 14 Jul, 2016 [facility] [address] [id number] [address] [place] [phone] May, Back pain M54.9 [facility] [address] [id number] [address] [place] [phone] May, Diabetes E11.9 ; Anxiety F41 .9 ; Port catheter in place Z95.828 ; Encounter for immunization Z23 and Insulin long-term use Z79.4 [facility] [address] [id number] [address] [place] [phone] Apr, Back pain M54.9 [facility] [address] [id number] [address] [place] [id number] Apr, Back pain M54.9 [facility] [address] [id number] [address] [place] [id number] Apr, [facility] [address] [id number] [address] [place] [phone] Apr, Back pain M54.9 [facility] [address] [id number] [address] [place] [phone] Mar, COPD (chronic obstructive pu lmonary disease) J44.9 [facility] [address] [id number] [address] [place] [phone] Feb, [facility] [address] [id number] [address] [place] [phone] Jan, [facility] [address] [id number] [address] [place] [phone] Jan, [facility] [address] [id number] 05 [place] [address] Jan, [facility] [address] [id number] [address] [place] [address] Jan, [facility] [address] [id number] [address] [place] [address] Dec, Diabetes E11.9 ; Hypoxia R09 .02 and Back pain M54.9 [facility] [address] [id number] [address] [place] [address] Dec, [facility] [address] [id number] [address] [place] [address] Nov, [facility] [address] [id number] [address] [place] [address] 15 Oct, 2015 Anxiety F41.9 [facility] [address] [id number] [address] [place] [address] Oct, Back pain M54.9 [facility] [address] [id number] [address] [place] [address] September, Back pain M54.9 [facility] [address] [id number] [address] [place] [address] September, Diabetes E11.9 [facility] [address] [id number] [address] [place] [address] September, [facility] [address] [id number] [address] [place] [address] September, Diabetes E11.9 ; Insulin sarai g-term use Z79.4 and Back pain M54.9 [facility] [address] [id number] [address] [place] [address] Aug, Back pain M54.9 [facility] [address] [id number] [address] [place] [address] Aug, Back pain M54.9 ; Anxiety F4 1.9 and Arthropathy, unspecified M12.9 [facility] [address] [id number] [address] [place] [address] Jul, Back pain M54.9 [facility] [address] [id number] [address] [place] [address] Jul, Anxiety F41.9 [facility] [address] [facility] [id number] [address] [place] [address] Jul, Back pain M54.9 [facility] [address] [facility] [id number] [address] [place] [address] 17 Jul, 2015 [facility] [address] [facility] [id number] [address] [place] [address] Jul, [facility] [address] [facility] [id number] [address] [place] [address] May, Back pain M54.9 ; Diabetes E 11.9 ; Insulin long-term use Z79.4 ; COPD (chronic obstructive pulmonary disease) J44.9 and Hypertension I10 [facility] [address] [facility] [id number] [address] [place] [address] May, Chronic pain G89.29 [facility] [address] [facility] [id number] [address] [place] [address] Apr, [facility] [address] [facility] [id number] [address] [place] [address] Apr, [facility] [address] [facility] [id number] [address] [place] [address] Mar, [facility] [address] [facility] [id number] [address] [place] [address] Mar, Encounter for immunization Z 23 and Diabetes E11.9 [facility] [address] [facility] [id number] [address] [place] [address] Feb, [facility] [address] [facility] [id number] [address] [place] [address] Feb, [facility] [address] [facility] [id number] [address] [place] [address] 23 Jan, 2015 [facility] [address] [facility] [id number] [address] [place] [address] 16 Jan, 2015 [facility] [address] [facility] [id number] [address] [place] [address] Dec, [facility] [address] [facility] [id number] [address] [place] [address] Dec, [facility] [address] [id number] [address] [place] [address] Dec, Unspecified arthropathy, sit e unspecified 716.90 and Diabetes mellitus type 2, uncontrolled 250.02 [facility] [address] [id number] [address] [place] [address], [place] [address] Dec, [facility] [address] [id number] [address] [place] [address] Nov, [facility] [address] [id number] [address] [place] [address], [place] [address] Oct, [facility] [address] [id number] [address] [place] [address], [place] [address] September, [facility] [address] [id number] [address] [place] [address], [place] [address] September, [facility] [address] [id number] [address] [place] [address], [place] [address] September, [facility] [address] [id number] [address] [place] [address], [place] [address] September, [facility] [address] [id number] [address] [place] [address], [place] [address] Aug, [facility] [address] [id number] [address] [place] [address], [place] [address] Aug, [facility] [address] [id number] [address] [place] [address], [place] [address] Jul, [facility] [address] [id number] [address] [place] [address] 18 Jul, 2014 [facility] [address] [id number] [address] [place] [address], [place] [address] 16 Jul, 2014 [facility] [address] [id number] [address] [place] [address], [place] [address] 16 Jul, 2014 [facility] [address] [id number] [address] [place] [address] 16 Jul, 2014 [facility] [address] [id number] [address] [place] [address], [place] [address] 16 Jul, 2014 [facility] [address] [id number] [address] [place] [address], [place] [address] 16 Jul, 2014 [facility] [address] [id number] [address] [place] [address], [place] [address] 16 Jul, 2014 [facility] [address] [id number] [address] [place] [address], [place] [address] 16 Jul, 2014 [facility] [address] [id number] [address] [place] [address], [place] [address] 13 Jul, 2014 [facility] [address] [id number] [address] [place] [address], [place] [address] 13 Jul, 2014 [facility] [address] [id number] [address] [place] [address], [place] [address] 09 Jul, 2014 [facility] [address] [id number] [address] [place] [address], [place] [address] 09 Jul, 2014 [facility] [address] [id number] [address] [place] [address], [place] [address] 17 Jul, 2014 [facility] [address] [id number] [address] [place] [address], [place] [address] 17 Jul, 2014 [facility] [address] [id number] [address] [place] [address], [place] [address] 16 Jul, 2014 [facility] [address] [id number] [address] [place] [address], [place] [address] 16 Jul, 2014 [facility] [address] [id number] [address] [place] [address], [place] [address] 16 Jul, 2014 [facility] [address] [id number] [address] [place] [address], [place] [address] 16 Jul, 2014 [facility] [address] [id number] [address] [place] [address], [place] [address] 16 Jul, 2014 [facility] [address] [id number] [address] [place] [address], [place] [address] 16 Jul, 2014 [facility] [address] [id number] [address] [place] [address], [place] [address] Jul, 2014 [facility] [address] [id number] [address] [place] [address], [place] [address] 16 Jul, 2014 [facility] [address] [id number] [address] [place] [address], [place] [address] Jul, 2014 [facility] [address] [id number] [address] [place] [address], [place] [address] Jul, 2014 [facility] [address] [id number] [address] [place] [address], [place] [address] Jul, 2014 [facility] [address] [id number] [address] [place] [address], [place] [address] Jul, 2014 [facility] [address] [id number] [address] [place] [address], [place] [address] Jul, 2014 [facility] [address] [id number] [address] [place] [address], [place] [address] Jul, [facility] [address] [id number] [address] [place] [address], [place] [address] May, [facility] [address] [id number] [address] [place] [address], [place] [address] May, [facility] [address] [id number] [address] [place] [address], [place] [address] May, [facility] [address] [id number] [address] [place] [address], [place] [address] May, [facility] [address] [id number] [address] [place] [address], [place] [address] May, [facility] [address] [id number] [address] [place] [address], [place] [address] May, [facility] [address] [id number] [address] [place] [address], [place] [address] May, [facility] [address] [id number] [address] [place] [address], [place] [address] May, [facility] [address] [id number] [address] [place] [address], [place] [address] May, [facility] [address] [id number] [address] [place] [address], [place] [address] May, [facility] [address] [id number] [address] [place] [address], [place] [address] Apr, [facility] [address] [id number] [address] [place] [address], [place] [address] Apr, [facility] [address] [id number] [address] [place] [address], [place] [address] Apr, [facility] [address] [id number] [address] [place] [address], [place] [address] Apr, [facility] [address] [id number] [address] [place] [address], [place] [address] Apr, [facility] [address] [id number] [address] [place] [address], [place] [address] Apr, [facility] [address] [id number] [address] [place] [address], [place] [address] Mar, [facility] [address] [id number] [address] [place] [address], [place] [address] Mar, [facility] [address] [id number] [address] [place] [address], [place] [address] Mar, [facility] [address] [id number] [address] [place] [address], [place] [address] Mar, [facility] [address] [id number] [address] [place] [address], [place] [address] Mar, [facility] [address] [id number] [address] [place] [address], [place] [address] Mar, [facility] [address] [id number] [address] [place] [address], [place] [address] Mar, [facility] [address] [id number] [address] [place] [address], [place] [address] 17 Mar, 2014 [facility] [address] [id number] [address] [place] [address], [place] [address] Mar, [facility] [address] [id number] [address] [place] [address], [place] [address] Mar, [facility] [address] [id number] [address] [place] [address], [place] [address] Mar, [facility] [address] [id number] [address] [place] [address], [place] [address] Feb, [facility] [address] [id number] [address] [place] [address], [place] [address] Feb, [facility] [address] [id number] [address] [place] [address], [place] [address] Feb, [facility] [address] [id number] [address] [place] [address], [place] [address] Feb, [facility] [address] [id number] [address] [place] [address], [place] [address] Feb, [facility] [address] [id number] [address] [place] [address], [place] [address] Feb, [facility] [address] [id number] [address] [place] [address], [place] [address] Feb, [facility] [address] [id number] [address] [place] [address], [place] [address] Feb, [facility] [address] [id number] [address] [place] [address], [place] [address] Feb, [facility] [address] [id number] [address] [place] [address], [place] [address] Feb, [facility] [address] [id number] [address] [place] [address], [place] [address] Jan, [facility] [address] [id number] [address] [place] [address], [place] [address] 22 Jan, 2013 [facility] [address] [id number] [address] [place] [address], [place] [address] 16 Jan, 2013 [facility] [address] [id number] [address] [place] [address], [place] [address] 16 Jan, 2013 [facility] [address] [id number] [address] [place] [address], [place] [address] 12 Jan, 2014 [facility] [address] [id number] [address] [place] [address], [place] [address] Jan, [facility] [address] [id number] [address] [place] [address], [place] [address] Jan, [facility] [address] [id number] [address] [place] [address], [place] [address] Dec, [facility] [address] [id number] [address] [place] [address], [place] [address] Dec, [facility] [address] [id number] [address] [place] [address], [place] [address] Dec, [facility] [address] [id number] [address] [place] [address], [place] [address] Dec, [facility] [address] [id number] [address] [place] [address], [place] [address] Dec, [facility] [address] [id number] [address] [place] [address], [place] [address] Dec, [facility] [address] [id number] [address] [place] [address], [place] [address] Dec, [facility] [address] [id number] [address] [place] [address], [place] [address] Dec, [facility] [address] [id number] [address] [place] [address], [place] [address] Oct, [facility] [address] [id number] [address] [place] [address] Oct, [facility] [address] [id number] [address] [place] [address], [place] [address] September, [facility] [address] [id number] [address] [place] [address], [place] [address] September, [facility] [address] [id number] [address] [place] [address], [place] [address] September, [facility] [address] [id number] [address] [place] [address], [place] [address] September, [facility] [address] [id number] [address] [place] [address], [place] [address] September, [facility] [address] [id number] [address] [place] [address], [place] [address] September, [facility] [address] [id number] [address] [place] [address], [place] [address] September, [facility] [address] [id number] [address] [place] [address], [place] [address] Aug, [facility] [address] [id number] [address] [place] [address], [place] [address] Aug, [facility] [address] [id number] [address] [place] [address], [place] [address] Jul, [facility] [address] [id number] [address] [place] [address], [place] [address] Jul, [facility] [address] [id number] [address] [place] [address], [place] [address] Jul, [facility] [address] [id number] [address] [place] [address], [place] [address] Jul, [facility] [address] [id number] [address] [place] [address], [place] [address] Jul, [facility] [address] [id number] [address] [place] [address], [place] [address] Jul, [facility] [address] [id number] [address] [place] [address], [place] [address] Jul, [facility] [address] [id number] [address] [place] [address], [place] [address] Jul, [facility] [address] [id number] [address] [place] [address], [place] [address] May, [facility] [address] [id number] [address] [place] [address], [place] [address] May, [facility] [address] [id number] [address] [place] [address], [place] [address] May, [facility] [address] [id number] [address] [place] [address], [place] [address] May, [facility] [address] [id number] [address] [place] [address], [place] [address] Apr, [facility] [address] [id number] [address] [place] [address], [place] [address] Mar, [facility] [address] [id number] [address] [place] [address], [place] [address] Mar, [facility] [address] [id number] [address] [place] [address], [place] [address] Mar, [facility] [address] [id number] [address] [place] [address], [place] [address] Mar, [facility] [address] [id number] [address] [place] [address], [place] [address] Mar, [facility] [address] [id number] [address] [place] [address], [place] [address] Mar, [facility] [address] [id number] [address] [place] [address], [place] [address] Mar, [facility] [address] [id number] [address] [place] [address], [place] [address] Mar, [facility] [address] [id number] [address] [place] [address] Mar, [facility] [address] [id number] [address] [place] [address], [place] [address] Mar, [facility] [address] [id number] [address] [place] [address], [place] [address] Mar, [facility] [address] [id number] [address] [place] [address], [place] [address] Mar, [facility] [address] [id number] [address] [place] [address], [place] [address] Feb, [facility] [address] [id number] [address] [place] [address], [place] [address] Feb, [facility] [address] [id number] [address] [place] [address], [place] [address] Feb, [facility] [address] [id number] [address] [place] [address], [place] [address] Feb, [facility] [address] [id number] [address] [place] [address], [place] [address] Feb, [facility] [address] [id number] [address] [place] [address], [place] [address] Jan, [facility] [address] [id number] [address] [place] [address], [place] [address] Dec, [facility] [address] [id number] [address] [place] [address], [place] [address] Dec, [facility] [address] [id number] [address] [place] [address], [place] [address] Dec, [facility] [address] [id number] [address] [place] [address], [place] [address] Nov, [facility] [address] [id number] [address] [place] [address], [place] [address] Nov, [facility] [address] [id number] [address] [place] [address], [place] [address] Nov, [facility] [address] [id number] [facility] [address] 27 Oct, 2012 [facility] [address] [id number] [address] [place] [address], [place] [address] Oct, [facility] [address] [id number] [address] [place] [address], [place] [address] Oct, [facility] [address] [id number] [address] [place] [address], [place] [address] September, [facility] [address] [id number] [address] [place] [address], [place] [address] September, [facility] [address] [id number] [address] [place] [address], [place] [address] September, [facility] [address] [id number] [address] [place] [address], [place] [address] September, [facility] [address] [id number] [address] [place] [address], [place] [address] September, [facility] [address] [id number] [address] [place] [address], [place] [address] Aug, [facility] [address] [id number] [address] [place] [address], [place] [address] Aug, [facility] [address] [id number] [address] [place] [address], [place] [address] Aug, [facility] [address] [id number] [address] [place] [address], [place] [address] Jul, [facility] [address] [id number] [address] [place] [address], [place] [address] Jul, [facility] [address] [id number] [address] [place] [address], [place] [address] Jul, [facility] [address] [id number] [address] [place] [address], [place] [address] Jul, [facility] [address] [id number] [address] [place] [address], [place] [address] Jul, [facility] [address] [id number] [address] [place] [address], [place] [address] Jul, [facility] [address] [id number] [address] [place] [address], [place] [address] Jul, [facility] [address] [id number] [address] [place] [address], [place] [address] May, [facility] [address] [id number] [address] [place] [address], [place] [address] May, [facility] [address] [id number] [address] [place] [address], [place] [address] May, [facility] [address] [id number] [address] [place] [address], [place] [address] Apr, [facility] [address] [id number] [address] [place] [address], [place] [address] Apr, [facility] [address] [id number] [address] [place] [address], [place] [address] Apr, [facility] [address] [id number] [address] [place] [address], [place] [address] Apr, [facility] [address] [id number] [address] [place] [address], [place] [address] Apr, [facility] [address] [id number] [address] [place] [address], [place] [address] Mar, [facility] [address] [id number] [address] [place] [address], [place] [address] 29 Mar, 2012 [facility] [address] [id number] [address] [place] [address], [place] [address] Mar, [facility] [address] [id number] [address] [place] [address], [place] [address] 15 Mar, 2012 [facility] [address] [id number] [address] [place] [address], [place] [address] Feb, [facility] [address] [id number] [address] [place] [address], [place] [address] Feb, [facility] [address] [id number] [address] [place] [address], [place] [address] Feb, [facility] [address] [id number] [address] [place] [address], [place] [address] Feb, [facility] [address] [id number] [address] [place] [address], [place] [address] Feb, [facility] [address] [id number] [address] [place] [address], [place] [address] Jan, [facility] [address] [id number] [address] [place] [address], [place] [address] Dec, [facility] [address] [id number] [address] [place] [address], [place] [address] Dec, [facility] [address] [id number] [address] [place] [address], [place] [address] Dec, [facility] [address] [id number] [address] [place] [address], [place] [address] Nov, [facility] [address] [id number] [address] [place] [address], [place] [address] Nov, [facility] [address] [id number] [address] [place] [address], [place] [address] Nov, [facility] [address] [id number] [address] [place] [address], [place] [address] Oct, [facility] [address] [id number] [address] [place] [address], [place] [address] Oct, [facility] [address] [id number] [address] [place] [address], [place] [address] Oct, [facility] [address] [id number] [address] [place] [address], [place] [address] Oct, [facility] [address] [id number] [address] [place] [address], [place] [address] September, [facility] [address] [id number] [address] [place] [address], [place] [address] September, [facility] [address] [id number] [address] [place] [address], [place] [address] Aug, [facility] [address] [id number] [address] [place] [address], [place] [address] Aug, [facility] [address] [id number] [address] [place] [address], [place] [address] Aug, [facility] [address] [id number] [address] [place] [address], [place] [address] Aug, [facility] [address] [id number] [address] [place] [address], [place] [address] Aug, [facility] [address] [id number] [address] [place] [address], [place] [address] Aug, [facility] [address] [id number] [address] [place] [address], [place] [address] Aug, [facility] [address] [id number] [address] [place] [address], [place] [address] Jul, [facility] [address] [id number] [address] [place] [address], [place] [address] Jul, [facility] [address] [id number] [address] [place] [address], [place] [address] Jul, [facility] [address] [id number] [address] [place] [address], [place] [address] May, [facility] [address] [id number] [address] [place] [address], [place] [address] May, [facility] [address] [id number] [address] [place] [address], [place] [address] May, [facility] [address] [id number] [address] [place] [address], [place] [address] Apr, [facility] [address] [id number] [address] [place] [address] Apr, [facility] [address] [id number] [address] [place] [address] Mar, [facility] [address] [id number] [address] [place] [address] Mar, [facility] [address] [id number] [address] [place] [address] Mar, [facility] [address] [id number] [address] [place] [address] Mar, [facility] [address] [id number] [address] [place] [address] Mar, [facility] [address] [id number] [address] [place] [address] Mar, [facility] [address] [id number] [address] [place] [address] Feb, [facility] [address] [id number] [address] [place] [address] Feb, [facility] [address] [id number] [address] [place] [address] Feb, IMMUNIZATIONS No Known Immunizations SOCIAL HISTORY [...] infections x 3 2015 Hospitalization History [facility] - right big t oe removed 2018
--- OUTSIDE RECORDS SUMMARY | 2020-01-03 08:08 | XMS REPORT ---
Author Author Tra SILVERIO Organization [facility] Address [address] [place] [address] Care Team Providers Care Biology Laboratory Assistant Name Role Phone FERNY SILVERIO Unavailable PROBLEMS Type Condition ICD9-CM Code PPR41-XP Code Onset Dates Condition S tatus SNOMED Code Problem Hypertension I10 Active 4097640 3 Problem Hypoxia R09.02 Active 964307180 Problem COPD (chronic obstructive pulmonary disease) J44.9 Active 84972244 Problem Lumbar radiculopathy, chronic M54.16 Active 666091798 Problem 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 Active 864382083 Problem Recurrent major depressive disorder, in full remission F33.42 Active 875766092 Problem Hyperlipidemia, unspecified E78.5 Ac tive 43804770 Problem PAD (peripheral artery disease) I73.9 Active 251826312 Problem Type 2 diabetes mellitus with other specified complication E11.69 Active 863082589979 Problem Anxiety F41.9 Active 41164251 Problem Type 2 diabetes mellitus wit h diabetic peripheral angiopathy without gangrene E11.51 Active 349100104 Problem ED (erectile dysfunction) of organic origin N52.9 Active 993528443 Problem Arthritis M19.90 Active 2941116 Problem Morbid (severe) obesity due to excess calories E66 .01 Active 142976635 ALLERGIES No Information ENCOUNTERS Encounter Location Date Diagnosis [address] 340 [id number] [address] Nov, Back pain M54.9 [facility] [address] [facility] [id number] [address] [place] [address] Nov, Back pain M54.9 [facility] [address] [facility] [id number] [address] [place] [address] Nov, [facility] [address] [facility] 340B [id number] [address] Oct, Anxiety F41.[address] 340B [id number] [place] [address] Oct, [facility] [address] [id number] [address] [place] [address] 17 Oct, 2019 [facility] [address] [id number] [address] [place] [address] 15 Oct, 2019 Back pain M54.9 and Lumbar r adiculopathy, chronic M54.16 [facility] [address] [id number] [address] [place] [address] 04 Oct, 2019 Lumbar radiculopathy, chroni c M54.16 [facility] [address] [id number] [address] [place] [address] 03 Oct, 2019 Anxiety F41.[address] 340B [id number] [address] Oct, [facility] [address] [id number] [address] [place] [address] September, Back pain M54.9 and Lumbar r adiculopathy, chronic M54.[address] 340[id number] [address] September, Anxiety F41.[address] [id number] [place] [address] Aug, [facility] [address] [id number] [address] [place] [address] 24 Aug, 2019 Back pain M54.9 and Lumbar r adiculopathy, chronic M54.16 [facility] [address] [id number] [address] [place] [address] 10 Aug, 2019 Anxiety F41.9 ; Back pain M5 4.9 and Lumbar radiculopathy, chronic M54.16 [facility] [address] [id number] [address] [place] [id number] 09 Aug, 2019 Lumbar radiculopathy, chroni c M54.16 ; Anxiety F41.9 ; Type 2 diabetes mellitus with other specified complication E11.69 and Hypertension I10 [facility] [address] [id number] [address] [place] [address] 30 Jul, 2019 [facility] [address] [id number] [address] [place] [id number] 27 Jul, 2019 Lumbar radiculopathy, chroni c M54.16 ; Back pain M54.9 and Anxiety F41.9 [facility] [address] [id number] [address] [place] [address] 23 Jul, 2019 [facility] [address] [id number] [address] [place] [id number] 13 Jul, 2019 Anxiety F41.9 [facility] [address] [id number] [address] [place] [id number] 12 Jul, 2019 Anxiety F41.9 [facility] [address] [id number] [address] [place] [address] Jul, Back pain M54.9 [facility] [address] [id number] [address] [place] [address] 02 Jul, 2019 Back pain M54.9 [facility] [address] [id number] [address] [place] [id number] 28 Jul, 2019 Lumbar radiculopathy, chroni c M54.16 [facility] [address] [id number] [address] [place] [id number] 28 Jul, 2019 Back pain M54.9 [facility] [address] [id number] [address] [place] [id number] 07 Jul, 2019 Encounter for Medicare annuc health wellness exam Z00.00 ; COPD (chronic obstructive [...] diabetes mellitus with other specified complication E11.69 [facility] [address] [id number] [address] [place] [address] Jul, Back pain M54.9 [facility] [address] [id number] [address] [place] [address] Jul, Anxiety F41.9 [facility] [address] [id number] [address] [place] [address] May, [facility] [address] [id number] [address] [place] [address] May, Lumbar radiculopathy, chroni c M54.16 [facility] [address] [id number] [address] [place] [address] May, Back pain M54.9 [facility] [address] [id number] [address] [place] [address] May, [facility] [address] [id number] [address] [place] [address] May, Back pain M54.9 and Anxiety F41.9 [facility] [address] [id number] [address] [place] [address] May, [facility] [address] [id number] [address] [place] [address] May, Type 2 diabetes mellitus wit h diabetic peripheral angiopathy without gangrene E11.51 ; Arthritis M19.90 ; ED (erectile dysfunction) of organic origin N52.9 ; Morbid (severe) obesity due to excess calories E66.01 and Lumbar radiculopathy, chronic M54.16 [facility] [address] [id number] [address] [place] [address] May, Diabetes E11.9 [facility] [address] [id number] [address] [place] [address] Apr, [facility] [address] [id number] [address] [place] [address] Apr, Back pain M54.9 [facility] [address] [id number] [address] [place] [address] Apr, [facility] [address] [id number] [address] [place] [address] Apr, Anxiety F41.9 [facility] [address] [id number] [address] [place] [address] Apr, Back pain M54.9 and Lumbar r adiculopathy, chronic M54.16 [facility] [address] [id number] [address] [place] [address] Apr, Back pain M54.9 ; Anxiety F4 1.9 and Lumbar radiculopathy, chronic M54.16 [facility] [address] [facility] [id number] [address] [place] [address] Mar, [facility] [address] [id number] [address] [place] [address] Mar, [facility] [address] [facility] [id number] [address] [place] [address] Mar, Back pain M54.9 [facility] [address] [id number] [address] [place] [address] Mar, [facility] [address] [facility] [id number] [address] [place] [address] Feb, Type 2 diabetes mellitus wit h diabetic peripheral angiopathy without gangrene E11.51 ; Lumbar radiculopathy, chronic M54.16 ; ED (erectile dysfunction) of organic origin N52.9 ; Encounter for immunization Z23 ; COPD (chronic obstructive pulmonary disease) J44.9 and Anxiety F41.9 [facility] [address] [id number] [address] [place] [address] 09 Feb, 2019 Back pain M54.9 [facility] [address] [id number] [address] [place] [id number] 08 Feb, 2019 [facility] [address] [id number] [address] [place] [address] Feb, [facility] [address] [id number] [address] [place] [address] Feb, [facility] [address] [id number] [address] [place] [address] Feb, Back pain M54.9 [facility] [address] [id number] [address] [place] [id number] Feb, [facility] [address] [id number] [address] [place] [address] Jan, Anxiety F41.9 [facility] [address] [id number] [address] [place] [address] Jan, Anxiety F41.9 [facility] [address] [id number] [address] [place] [address] Jan, [facility] [address] [id number] [address] [place] [address] Jan, [facility] [address] [id number] [address] [place] [address] Jan, Back pain M54.9 [facility] [address] [id number] [address] [place] [address] Jan, [facility] [address] [id number] [address] [place] [address] Dec, Acute non-recurrent frontal sinusitis J01.10 [facility] [address] [id number] [address] [place] [address] Dec, Acute non-recurrent frontal sinusitis J01.10 [facility] [address] [id number] [address] [place] [address] 16 Dec, 2018 Type 2 diabetes mellitus wit h diabetic peripheral angiopathy without gangrene E11.51 ; Lumbar radiculopathy, chronic M54.16 ; Recurrent major depressive disorder, in full remission F33.42 and Anxiety F41.9 [facility] [address] [id number] [address] [place] [address] Dec, [facility] [address] [id number] [address] [place] [address] Nov, Anxiety F41.9 [facility] [address] [id number] [address] [place] [address] Nov, [facility] [address] [id number] [address] [place] [address] Nov, Back pain M54.9 [facility] [address] [id number] [address] [place] [address] Nov, [facility] [address] [id number] [address] [place] [address] Nov, Back pain M54.9 [facility] [address] [id number] [address] [place] [address] Nov, Anxiety F41.9 [facility] [address] [id number] [address] [place] [address] Nov, [facility] [address] [id number] [address] [place] [address] Oct, Back pain M54.9 [facility] [address] [id number] [address] [place] [address] Oct, [facility] [address] [id number] [address] [place] [address] Oct, [facility] [address] [id number] [address] [place] [address] Oct, [facility] [address] [id number] [address] [place] [address] September, Back pain M54.9 [facility] [address] [id number] [address] [place] [address] September, [facility] [address] [id number] [address] [place] [address] September, [facility] [address] [id number] [address] [place] [address] September, [facility] [address] [id number] [address] [place] [address] Aug, Back pain M54.9 [facility] [address] [id number] [address] [place] [address] Aug, Anxiety F41.9 [facility] [address] [id number] [address] [place] [id number] Aug, [facility] [address] [facility] [id number] [address] [place] [address] Aug, Pressure ulcer of other site , stage 3 L89.893 and COPD (chronic obstructive pulmonary disease) J44.9 [facility] [address] [id number] [address] [place] [address] Aug, History of smoking Z87.891 [facility] [address] [facility] [id number] [address] [place] [address] Jul, Type 2 diabetes mellitus wit h diabetic peripheral angiopathy without gangrene E11.51 [facility] [address] [id number] [address] [place] [address] Jul, Back pain M54.9 [facility] [address] [id number] [address] [place] [address] Jul, Anxiety F41.9 [facility] [address] [id number] [address] [place] [address] Jul, [facility] [address] [facility] [id number] [address] [place] [address] Jul, Back pain M54.9 [facility] [address] [facility] [id number] [address] [place] [address] Jul, Back pain M54.9 [facility] [address] [id number] [address] [place] [address] Jul, Lumbar radiculopathy, chroni c M54.16 ; Hypertension I10 and Type 2 diabetes mellitus with diabetic peripheral angiopathy without gangrene E11.51 [facility] [address] [id number] [address] [place] [address] Jul, Back pain M54.9 [facility] [address] [id number] [address] [place] [address] Jul, Back pain M54.9 and Anxiety F41.9 [facility] [address] [id number] [address] [place] [address] Jul, [facility] [address] [id number] [address] [place] [address] May, Back pain M54.9 and Anxiety F41.9 [facility] [address] [id number] [address] [place] [address] May, [facility] [address] [id number] [address] [place] [address] Apr, Radiculopathy of lumbar rhiannon on M54.16 ; Back pain M54.9 and Anxiety F41.9 [facility] [address] [id number] [address] [place] [address] Apr, Diabetes E11.9 ; Muscle spas m M62.838 and Lumbar radiculopathy, chronic M54.16 [facility] [address] [id number] [address] [place] [address] Apr, [facility] [address] [id number] [address] [place] [address] Apr, [facility] [address] [id number] [address] [place] [address] Mar, Back pain M54.9 and Anxiety F41.9 [place] [address] [id number] [address] [place] [address] Mar, [facility] [address] [id number] [address] [place] [address] Mar, [facility] [address] [id number] [address] [place] [address] Mar, [facility] [address] [facility] [id number] [address] [place] [address] Mar, Encounter for immunization Z 23 [facility] [address] [id number] [address] [place] [address] Feb, Back pain M54.9 and Anxiety F41.9 [facility] [address] [id number] [address] [place] [address] Feb, Back pain M54.9 and Anxiety F41.9 [facility] [address] [facility] [id number] [address] [place] [address] Jan, Back pain M54.9 and Anxiety F41.9 [facility] [address] [id number] [address] [place] [address] Jan, [facility] [address] [id number] [address] [place] [address] Dec, [facility] [address] [id number] [address] [place] [address] Dec, Back pain M54.9 and Anxiety F41.9 [facility] [address] [id number] [address] [place] [id number] 13 Dec, 2017 Diabetes E11.9 ; Type 2 diab etes mellitus with diabetic peripheral angiopathy without gangrene E11.51 ; Lumbar radiculopathy, chronic M54.16 ; COPD (chronic obstructive pulmonary disease) J44.9 and Anxiety F41.9 [facility] [address] [id number] [address] [place] [address] Dec, Back pain M54.9 and Anxiety F41.9 [facility] [address] [id number] [address] [place] [address] Nov, Back pain M54.9 and Anxiety F41.9 [facility] [address] [id number] [address] [place] [address] Oct, [facility] [address] [id number] [address] [place] [address] Oct, Back pain M54.9 and Anxiety F41.9 [facility] [address] [id number] [address] [place] [address] September, Anxiety F41.9 and Back pain M54.9 [place] [address] [id number] [address] [place] [address] September, Diabetes E11.9 ; Hypertensio n I10 ; COPD (chronic obstructive pulmonary disease) J44.9 and Lumbar radiculopathy, chronic M54.16 [place] [address] [id number] [address] [place] [address] September, Anxiety F41.9 [place] [address] [id number] [address] [place] [address] Aug, [facility] [address] [id number] [address] [place] [address] Aug, [place] [address] [id number] [address] [place] [address] Aug, Anxiety F41.9 and Back pain M54.9 [facility] [address] [id number] [address] [place] [address] Aug, Medicare annual wellness vis it, initial Z00.00 ; COPD (chronic obstructive pulmonary disease) J44.9 ; PAD (peripheral artery disease) I73.9 ; Insulin long-term use Z79.4 ; Hypertension I10 ; Anxiety F41.9 ; Recurrent major depressive disorder, in full remission F33.42 ; Pressure ulcer of other site, stage 3 L89.893 ; Type 2 diabetes mellitus with diabetic peripheral angiopathy without gangrene E11.51 and 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 [facility] [address] [id number] [address] [place] [address] Jul, Back pain M54.9 [facility] [address] [id number] [address] [place] [address] Jul, [facility] [address] [id number] [address] [place] [address] Jul, Anxiety F41.9 and Back pain M54.9 [facility] [address] [id number] [address] [place] [address] Jul, Diabetes E11.9 [facility] [address] [id number] [address] [place] [address] May, [facility] [address] [id number] [address] [place] [address] May, Diabetes E11.9 ; Anxiety F41 .9 ; Back pain M54.9 and COPD (chronic obstructive pulmonary disease) J44.9 [facility] [address] [id number] [address] [place] [address] May, Back pain M54.9 [facility] [address] [id number] [address] [place] [address] May, [facility] [address] [id number] [address] [place] [address] Apr, Back pain M54.9 [facility] [address] [id number] [address] [place] [address] Mar, Back pain M54.9 [facility] [address] [id number] [address] [place] [address] Mar, [facility] [address] [id number] [address] [place] [address] 16 Mar, 2017 [facility] [address] [id number] [address] [place] [address] 14 Mar, 2017 Radiculopathy of lumbar rhiannon on M54.16 [facility] [address] [facility] [id number] [address] [place] [id number] 13 Mar, 2017 [facility] [address] [place] [id number] [place] [address] 07 Mar, 2017 Encounter for immunization Z 23 and Lumbar radiculopathy, chronic M54.16 [facility] [address] [place] [id number] [address] [place] [address] Mar, Back pain M54.9 and Anxiety F41.9 [facility] [address] [place] [id number] [place] [address] 10 Feb, 2017 Acute bilateral low back boy n with left-sided sciatica M54.42 and Acute bilateral low back pain with right-sided sciatica M54.41 [place] [address] [address] Feb, [facility] [address] [place] [id number] [place] [address] Feb, Back pain M54.9 [place] [address] [place] [id number] [place] [address] 05 Jan, 2017 Back pain M54.9 and Anxiety F41.9 [place] [id number] [place] [address] 05 Jan, 2017 Diabetes E11.9 [place] [address] [place] [id number] [place] [address] 14 Dec, 2016 Diabetes E11.9 ; Back pain M 54.9 ; Anxiety F41.9 and Insulin long- term use Z79.4 [place] [address] [facility] [id number] [address] [place] [address] Dec, Anxiety F41.9 [place] [address] [place] [id number] [address] [place] [id number] Dec, Back pain M54.9 [place] [address] [id number] [address] [place] [address] Nov, Back pain M54.9 [facility] [address] [id number] [address] [place] [address] Oct, Back pain M54.9 and Anxiety F41.9 [facility] [address] [id number] [address] [place] [address] September, Back pain M54.9 [facility] [address] [id number] [address] [place] [address] September, Back pain M54.9 and Anxiety F41.9 [facility] [address] [id number] [address] [place] [id number] Aug, Diabetes E11.9 ; Anxiety F41 .9 ; Back pain M54.9 and PAD (peripheral artery disease) I73.9 [facility] [address] [id number] [address] [place] [id number] Aug, Anxiety F41.9 [facility] [address] [id number] [address] [place] [id number] Aug, Back pain M54.9 [facility] [address] [id number] [address] [place] [id number] 23 Jul, 2016 Back pain M54.9 [facility] [address] [id number] [address] [place] [id number] Jul, Back pain M54.9 [facility] [address] [id number] [address] [place] [id number] 23 Jul, 2016 Back pain M54.9 [facility] [address] [id number] [address] [place] [id number] 16 Jul, 2016 Dorsalgia M54.9 [facility] [address] [id number] [address] [place] [id number] 14 Jul, 2016 [facility] [address] [id number] [address] [place] [id number] May, Back pain M54.9 [facility] [address] [id number] [address] [place] [id number] May, Diabetes E11.9 ; Anxiety F41 .9 ; Port catheter in place Z95.828 ; Encounter for immunization Z23 and Insulin long-term use Z79.4 [facility] [address] [id number] [address] [place] [id number] Apr, Back pain M54.9 [facility] [address] [id number] [address] [place] [phone] Apr, Back pain M54.9 [facility] [address] [id number] [address] [place] [id number] Apr, [facility] [address] [id number] [address] [place] [id number] Apr, Back pain M54.9 [facility] [address] [id number] [address] [place] [id number] Mar, COPD (chronic obstructive pu lmonary disease) J44.9 [facility] [address] [id number] [address] [place] [phone] Feb, [facility] [address] [id number] [address] [place] [id number] Jan, [facility] [address] [id number] [address] [place] [id number] Jan, [facility] [address] [id number] [address] [place] [id number] Jan, [facility] [address] [id number] [address] [place] [id number] Jan, [facility] [address] [id number] [address] [place] [address] [id number] Dec, Diabetes E11.9 ; Hypoxia R09 .02 and Back pain M54.9 [facility] [address] [id number] [address] [place] [address] Dec, [facility] [address] [id number] [address] [place] [id number] Nov, [facility] [address] [id number] [address] [place] [address] 15 Oct, 2015 Anxiety F41.9 [facility] [address] [id number] [address] [place] [address] Oct, Back pain M54.9 [facility] [address] [id number] [address] [place] [address] September, Back pain M54.9 [facility] [address] [id number] [address] [place] [address] September, Diabetes E11.9 [facility] [address] [id number] [address] [place] [address] September, [facility] [address] [id number] [address] [place] [address] September, Diabetes E11.9 ; Insulin sarai g-term use Z79.4 and Back pain M54.9 [facility] [address] [id number] [address] [place] [address] Aug, Back pain M54.9 [facility] [address] [id number] [address] [place] [id number] Aug, Back pain M54.9 ; Anxiety F4 1.9 and Arthropathy, unspecified M12.9 [facility] [address] [id number] [address] [place] [address] Jul, Back pain M54.9 [facility] [address] [id number] [address] [place] [id number] Jul, Anxiety F41.9 [facility] [address] [facility] [id number] [address] [place] [phone] Jul, Back pain M54.9 [facility] [address] [facility] [id number] [address] [place] [id number] 17 Jul, 2015 [facility] [address] [facility] [id number] [address] [place] [phone] Jul, [facility] [address] [facility] [id number] [address] [place] [id number] May, Back pain M54.9 ; Diabetes E 11.9 ; Insulin long-term use Z79.4 ; COPD (chronic obstructive pulmonary disease) J44.9 and Hypertension I10 [facility] [address] [facility] [id number] [address] [place] [address] May, Chronic pain G89.29 [facility] [address] [facility] [id number] [address] [place] [id number] Apr, [facility] [address] [facility] [id number] [address] [place] [phone] Apr, [facility] [address] [facility] [id number] [address] [place] [id number] Mar, [facility] [address] [facility] [id number] [address] [place] [address] Mar, Encounter for immunization Z 23 and Diabetes E11.9 [facility] [address] [facility] [id number] [address] [place] [address] Feb, [facility] [address] [facility] [id number] [address] [place] [phone] Feb, [facility] [address] [facility] [id number] [address] [place] [phone] 23 Jan, 2015 [facility] [address] [facility] [id number] [address] [place] [phone] 16 Jan, 2015 [facility] [address] [facility] [id number] [address] [place] [phone] Dec, [facility] [address] [facility] [id number] [address] [place] [address] Dec, [facility] [address] [id number] [address] [place] [id number] Dec, Unspecified arthropathy, sit e unspecified 716.90 and Diabetes mellitus type 2, uncontrolled 250.02 [facility] [address] [id number] [address] [place] [address], [place] [address] Dec, [facility] [address] [id number] [address] [place] [phone] Nov, [facility] [address] [id number] [address] [place] [address], [place] [address] Oct, [facility] [address] [id number] [address] [place] [address], [place] [address] September, [facility] [address] [id number] [address] [place] [address], [place] [address] September, [facility] [address] [id number] [address] [place] [address], [place] [address] September, [facility] [address] [id number] [address] [place] [address], [place] [address] September, [facility] [address] [id number] [address] [place] [address], [place] [address] Aug, [facility] [address] [id number] [address] [place] [address], [place] [address] Aug, [facility] [address] [id number] [address] [place] [address], [place] [address] Jul, [facility] [address] [id number] [address] [place] [id number] 18 Jul, 2014 [facility] [address] [id number] [address] [place] [address], [place] [address] 16 Jul, 2014 [facility] [address] [id number] [address] [place] [address], [place] [address] 16 Jul, 2014 [facility] [address] [id number] [address] [place] [id number] 16 Jul, 2014 [facility] [address] [id number] [address] [place] [address], [place] [address] 16 Jul, 2014 [facility] [address] [id number] [address] [place] [address], [place] [address] 16 Jul, 2014 [facility] [address] [id number] [address] [place] [address], [place] [address] 16 Jul, 2014 [facility] [address] [id number] [address] [place] [address], [place] [address] 16 Jul, 2014 [facility] [address] [id number] [address] [place] [address], [place] [address] 13 Jul, 2014 [facility] [address] [id number] [address] [place] [address], [place] [address] 13 Jul, 2014 [facility] [address] [id number] [address] [place] [address], [place] [address] 09 Jul, 2014 [facility] [address] [id number] [address] [place] [address], [place] [address] 09 Jul, 2014 [facility] [address] [id number] [address] [place] [address], [place] [address] 17 Jul, 2014 [facility] [address] [id number] [address] [place] [address], [place] [address] 17 Jul, 2014 [facility] [address] [id number] [address] [place] [address], [place] [address] 16 Jul, 2014 [facility] [address] [id number] [address] [place] [address], [place] [address] 16 Jul, 2014 [facility] [address] [id number] [address] [place] [address], [place] [address] 16 Jul, 2014 [facility] [address] [id number] [address] [place] [address], [place] [address] 16 Jul, 2014 [facility] [address] [id number] [address] [place] [address], [place] [address] 16 Jul, 2014 [facility] [address] [id number] [address] [place] [address], [place] [address] 16 Jul, 2014 [facility] [address] [id number] [address] [place] [address], [place] [address] Jul, 2014 [facility] [address] [id number] [address] [place] [address], [place] [address] 16 Jul, 2014 [facility] [address] [id number] [address] [place] [address], [place] [address] Jul, 2014 [facility] [address] [id number] [address] [place] [address], [place] [address] Jul, 2014 [facility] [address] [id number] [address] [place] [address], [place] [address] Jul, 2014 [facility] [address] [id number] [address] [place] [address], [place] [address] Jul, 2014 [facility] [address] [id number] [address] [place] [address], [place] [address] Jul, 2014 [facility] [address] [id number] [address] [place] [address], [place] [address] Jul, [facility] [address] [id number] [address] [place] [address], [place] [address] May, [facility] [address] [id number] [address] [place] [address], [place] [address] May, [facility] [address] [id number] [address] [place] [address], [place] [address] May, [facility] [address] [id number] [address] [place] [address], [place] [address] May, [facility] [address] [id number] [address] [place] [address], [place] [address] May, [facility] [address] [id number] [address] [place] [address], [place] [address] May, [facility] [address] [id number] [address] [place] [address], [place] [address] May, [facility] [address] [id number] [address] [place] [address], [place] [address] May, [facility] [address] [id number] [address] [place] [address], [place] [address] May, [facility] [address] [id number] [address] [place] [address], [place] [address] May, [facility] [address] [id number] [address] [place] [address], [place] [address] Apr, [facility] [address] [id number] [address] [place] [address], [place] [address] Apr, [facility] [address] [id number] [address] [place] [address], [place] [address] Apr, [facility] [address] [id number] [address] [place] [address], [place] [address] Apr, [facility] [address] [id number] [address] [place] [address], [place] [address] Apr, [facility] [address] [id number] [address] [place] [address], [place] [address] Apr, [facility] [address] [id number] [address] [place] [address], [place] [address] Mar, [facility] [address] [id number] [address] [place] [address], [place] [address] Mar, [facility] [address] [id number] [address] [place] [address], [place] [address] Mar, [facility] [address] [id number] [address] [place] [address], [place] [address] Mar, [facility] [address] [id number] [address] [place] [address], [place] [address] Mar, [facility] [address] [id number] [address] [place] [address], [place] [address] Mar, [facility] [address] [id number] [address] [place] [address], [place] [address] Mar, [facility] [address] [id number] [address] [place] [address], [place] [address] 17 Mar, 2014 [facility] [address] [id number] [address] [place] [address], [place] [address] Mar, [facility] [address] [id number] [address] [place] [address], [place] [address] Mar, [facility] [address] [id number] [address] [place] [address], [place] [address] Mar, [facility] [address] [id number] [address] [place] [address], [place] [address] Feb, [facility] [address] [id number] [address] [place] [address], [place] [address] Feb, [facility] [address] [id number] [address] [place] [address], [place] [address] Feb, [facility] [address] [id number] [address] [place] [address], [place] [address] Feb, [facility] [address] [id number] [address] [place] [address], [place] [address] Feb, [facility] [address] [id number] [address] [place] [address], [place] [address] Feb, [facility] [address] [id number] [address] [place] [address], [place] [address] Feb, [facility] [address] [id number] [address] [place] [address], [place] [address] Feb, [facility] [address] [id number] [address] [place] [address], [place] [address] Feb, [facility] [address] [id number] [address] [place] [address], [place] [address] Feb, [facility] [address] [id number] [address] [place] [address], [place] [address] Jan, [facility] [address] [id number] [address] [place] [address], [place] [address] 22 Jan, 2013 [facility] [address] [id number] [address] [place] [address], [place] [address] 16 Jan, 2013 [facility] [address] [id number] [address] [place] [address], [place] [address] 16 Jan, 2013 [facility] [address] [id number] [address] [place] [address], [place] [address] 12 Jan, 2014 [facility] [address] [id number] [address] [place] [address], [place] [address] Jan, [facility] [address] [id number] [address] [place] [address], [place] [address] Jan, [facility] [address] [id number] [address] [place] [address], [place] [address] Dec, [facility] [address] [id number] [address] [place] [address], [place] [address] Dec, [facility] [address] [id number] [address] [place] [address], [place] [address] Dec, [facility] [address] [id number] [address] [place] [address], [place] [address] Dec, [facility] [address] [id number] [address] [place] [address], [place] [address] Dec, [facility] [address] [id number] [address] [place] [address], [place] [address] Dec, [facility] [address] [id number] [address] [place] [address], [place] [address] Dec, [facility] [address] [id number] [address] [place] [address], [place] [address] Dec, [facility] [address] [id number] [address] [place] [address], [place] [address] Oct, [facility] [address] [id number] [address] [place] [address] Oct, [facility] [address] [id number] [address] [place] [address], [place] [address] September, [facility] [address] [id number] [address] [place] [address], [place] [address] September, [facility] [address] [id number] [address] [place] [address], [place] [address] September, [facility] [address] [id number] [address] [place] [address], [place] [address] September, [facility] [address] [id number] [address] [place] [address], [place] [address] September, [facility] [address] [id number] [address] [place] [address], [place] [address] September, [facility] [address] [id number] [address] [place] [address], [place] [address] September, [facility] [address] [id number] [address] [place] [address], [place] [address] Aug, [facility] [address] [id number] [address] [place] [address], [place] [address] Aug, [facility] [address] [id number] [address] [place] [address], [place] [address] Jul, [facility] [address] [id number] [address] [place] [address], [place] [address] Jul, [facility] [address] [id number] [address] [place] [address], [place] [address] Jul, [facility] [address] [id number] [address] [place] [address], [place] [address] Jul, [facility] [address] [id number] [address] [place] [address], [place] [address] Jul, [facility] [address] [id number] [address] [place] [address], [place] [address] Jul, [facility] [address] [id number] [address] [place] [address], [place] [address] Jul, [facility] [address] [id number] [address] [place] [address], [place] [address] Jul, [facility] [address] [id number] [address] [place] [address], [place] [address] May, [facility] [address] [id number] [address] [place] [address], [place] [address] May, [facility] [address] [id number] [address] [place] [address], [place] [address] May, [facility] [address] [id number] [address] [place] [address], [place] [address] May, [facility] [address] [id number] [address] [place] [address], [place] [address] Apr, [facility] [address] [id number] [address] [place] [address], [place] [address] Mar, [facility] [address] [id number] [address] [place] [address], [place] [address] Mar, [facility] [address] [id number] [address] [place] [address], [place] [address] Mar, [facility] [address] [id number] [address] [place] [address], [place] [address] Mar, [facility] [address] [id number] [address] [place] [address], [place] [address] Mar, [facility] [address] [id number] [address] [place] [address], [place] [address] Mar, [facility] [address] [id number] [address] [place] [address], [place] [address] Mar, [facility] [address] [id number] [address] [place] [address], [place] [address] Mar, [facility] [address] [id number] [address] [place] [address] Mar, [facility] [address] [id number] [address] [place] [address], [place] [address] Mar, [facility] [address] [id number] [address] [place] [address], [place] [address] Mar, [facility] [address] [id number] [address] [place] [address], [place] [address] Mar, [facility] [address] [id number] [address] [place] [address], [place] [address] Feb, [facility] [address] [id number] [address] [place] [address], [place] [address] Feb, [facility] [address] [id number] [address] [place] [address], [place] [address] Feb, [facility] [address] [id number] [address] [place] [address], [place] [address] Feb, [facility] [address] [id number] [address] [place] [address], [place] [address] Feb, [facility] [address] [id number] [address] [place] [address], [place] [address] Jan, [facility] [address] [id number] [address] [place] [address], [place] [address] Dec, [facility] [address] [id number] [address] [place] [address], [place] [address] Dec, [facility] [address] [id number] [address] [place] [address], [place] [address] Dec, [facility] [address] [id number] [address] [place] [address], [place] [address] Nov, [facility] [address] [id number] [address] [place] [address], [place] [address] Nov, [facility] [address] [id number] [address] [place] [address], [place] [address] Nov, [facility] [address] [id number] [facility] [place] [address] 27 Oct, 2012 [facility] [address] [id number] [address] [place] [address], [place] [address] Oct, [facility] [address] [id number] [address] [place] [address], [place] [address] Oct, [facility] [address] [id number] [address] [place] [address], [place] [address] September, [facility] [address] [id number] [address] [place] [address], [place] [address] September, [facility] [address] [id number] [address] [place] [address], [place] [address] September, [facility] [address] [id number] [address] [place] [address], [place] [address] September, [facility] [address] [id number] [address] [place] [address], [place] [address] September, [facility] [address] [id number] [address] [place] [address], [place] [address] Aug, [facility] [address] [id number] [address] [place] [address], [place] [address] Aug, [facility] [address] [id number] [address] [place] [address], [place] [address] Aug, [facility] [address] [id number] [address] [place] [address], [place] [address] Jul, [facility] [address] [id number] [address] [place] [address], [place] [address] Jul, [facility] [address] [id number] [address] [place] [address], [place] [address] Jul, [facility] [address] [id number] [address] [place] [address], [place] [address] Jul, [facility] [address] [id number] [address] [place] [address], [place] [address] Jul, [facility] [address] [id number] [address] [place] [address], [place] [address] Jul, [facility] [address] [id number] [address] [place] [address], [place] [address] Jul, [facility] [address] [id number] [address] [place] [address], [place] [address] May, [facility] [address] [id number] [address] [place] [address], [place] [address] May, [facility] [address] [id number] [address] [place] [address], [place] [address] May, [facility] [address] [address] [id number] [address] [place] [address], [place] [id number] Apr, [facility] [address] [id number] [address] [place] [address], [place] [address] Apr, [facility] [address] [id number] [address] [place] [address], [place] [address] Apr, [facility] [address] [id number] [address] [place] [address], [place] [address] Apr, [facility] [address] [id number] [address] [place] [address], [place] [address] Apr, [facility] [address] [id number] [address] [place] [address], [place] [address] Mar, [facility] [address] [id number] [address] [place] [address], [place] [address] 29 Mar, 2012 [facility] [address] [id number] [address] [place] [address], [place] [address] Mar, [facility] [address] [id number] [address] [place] [address], [place] [address] 15 Mar, 2012 [facility] [address] [id number] [address] [place] [address], [place] [address] Feb, [facility] [address] [id number] [address] [place] [address], [place] [address] Feb, [facility] [address] [id number] [address] [place] [address], [place] [address] Feb, [facility] [address] [id number] [address] [place] [address], [place] [address] Feb, [facility] [address] [id number] [address] [place] [address], [place] [address] Feb, [facility] [address] [id number] [address] [place] [address], [place] [address] Jan, [facility] [address] [id number] [address] [place] [address], [place] [address] Dec, [facility] [address] [id number] [address] [place] [address], [place] [address] Dec, [facility] [address] [id number] [address] [place] [address], [place] [address] Dec, [facility] [address] [id number] [address] [place] [address], [place] [address] Nov, [facility] [address] [id number] [address] [place] [address], [place] [address] Nov, [facility] [address] [id number] [address] [place] [address], [place] [address] Nov, [facility] [address] [id number] [address] [place] [address], [place] [address] Oct, [facility] [address] [id number] [address] [place] [address], [place] [address] Oct, [facility] [address] [id number] [address] [place] [address], [place] [address] Oct, [facility] [address] [id number] [address] [place] [address], [place] [address] Oct, [facility] [address] [id number] [address] [place] [address], [place] [address] September, [facility] [address] [id number] [address] [place] [address], [place] [address] September, [facility] [address] [id number] [address] [place] [address], [place] [address] Aug, [facility] [address] [id number] [address] [place] [address], [place] [address] Aug, [facility] [address] [id number] [address] [place] [address], [place] [address] Aug, [facility] [address] [id number] [address] [place] [address], [place] [address] Aug, [facility] [address] [id number] [address] [place] [address], [place] [address] Aug, [facility] [address] [id number] [address] [place] [address], [place] [address] Aug, [facility] [address] [id number] [address] [place] [address], [place] [address] Aug, [facility] [address] [id number] [address] [place] [address], [place] [address] Jul, [facility] [address] [id number] [address] [place] [address], [place] [address] Jul, [facility] [address] [id number] [address] [place] [address], [place] [address] Jul, [facility] [address] [id number] [address] [place] [address], [place] [address] May, [facility] [address] [id number] [address] [place] [address], [place] [address] May, [facility] [address] [id number] [address] [place] [address], [place] [address] May, [facility] [address] [id number] [address] [place] [address], [place] [address] Apr, [facility] [address] [id number] [address] [place] [id number] Apr, [facility] [address] [id number] [address] [place] [id number] Mar, [facility] [address] [id number] [address] [place] [address] Mar, [facility] [address] [id number] [address] [place] [id number] Mar, [facility] [address] [id number] [address] [place] [id number] Mar, [facility] [address] [id number] [address] [place] [id number] Mar, [facility] [address] [id number] [address] [place] [id number] Mar, [facility] [address] [id number] [address] [place] [id number] Feb, [facility] [address] [id number] [address] [place] [id number] Feb, [facility] [address] [id number] [address] [place] [id number] Feb, IMMUNIZATIONS No Known Immunizations SOCIAL HISTORY [...] foot infections x 3 2015 Hospitalization History [facility] - right big t oe removed 2018
--- OUTSIDE RECORDS SUMMARY | 2020-01-03 08:09 | XMS REPORT ---
Author Author Tra SILVERIO Organization [facility] Address [address] [place] [address] Care Team Providers Care Perishable Fruit Inspector Name Role Phone FERNY SILVERIO Unavailable PROBLEMS Type Condition ICD9-CM Code AUZ25-SV Code Onset Dates Condition S tatus SNOMED Code Problem Hypertension I10 Active 3118966 3 Problem Hypoxia R09.02 Active 860580939 Problem COPD (chronic obstructive pulmonary disease) J44.9 Active 04663247 Problem Lumbar radiculopathy, chronic M54.16 Active 961237573 Problem [facility] current use of insulin Z79.4 Active 760456343 Problem Recurrent major depressive disorder, in full remission F33.42 Active 601084351 Problem Hyperlipidemia, unspecified E78.5 Ac tive 40431572 Problem PAD (peripheral artery disease) I73.9 Active 407432646 Problem Type 2 diabetes mellitus with other specified complication E11.69 Active 218946399969 Problem Anxiety F41.9 Active 78134739 Problem Type 2 diabetes mellitus wit h diabetic peripheral angiopathy without gangrene E11.51 Active 701979459 Problem ED (erectile dysfunction) of organic origin N52.9 Active 795398718 Problem Arthritis M19.90 Active 9996286 Problem Morbid (severe) obesity due to excess calories E66 .01 Active 843370698 ALLERGIES No Information ENCOUNTERS Encounter Location Date Diagnosis [address] [id number] [address] Nov, Back pain M54.9 [facility] [address] [facility] [id number] [address] [place] [address] Nov, Back pain M54.9 [facility] [address] [facility] [id number] [address] [place] [phone] Nov, [facility] [address] [facility] [address] [id number] [address] Oct, Anxiety F41.[address] [id number] [place] [address] Oct, [facility] [address] [id number] [address] [place] [phone] 17 Oct, 2019 [facility] [address] [id number] [address] [place] [address] 15 Oct, 2019 Back pain M54.9 and Lumbar r adiculopathy, chronic M54.16 [facility] [address] [id number] [address] [place] [phone] 04 Oct, 2019 Lumbar radiculopathy, chroni c M54.16 [facility] [address] [id number] [address] [place] [phone] 03 Oct, 2019 Anxiety F41.[address] 340[address] [id number] [address] Oct, [facility] [address] [id number] [address] [place] [address] September, Back pain M54.9 and Lumbar r adiculopathy, chronic M54.[address] 340[address] [id number] [address] September, Anxiety F41.[address] [id number] [place] [address] Aug, [facility] [address] [id number] [address] [place] [phone] 24 Aug, 2019 Back pain M54.9 and Lumbar r adiculopathy, chronic M54.16 [facility] [address] [id number] [address] [place] [address] 10 Aug, 2019 Anxiety F41.9 ; Back pain M5 4.9 and Lumbar radiculopathy, chronic M54.16 [facility] [address] [id number] [address] [place] [phone] 09 Aug, 2019 Lumbar radiculopathy, chroni c M54.16 ; Anxiety F41.9 ; Type 2 diabetes mellitus with other specified complication E11.69 and Hypertension I10 [facility] [address] [id number] [address] [place] [phone] 30 Jul, 2019 [facility] [address] [id number] [address] [place] [id number] 27 Jul, 2019 Lumbar radiculopathy, chroni c M54.16 ; Back pain M54.9 and Anxiety F41.9 [facility] [address] [id number] [address] [place] [phone] 23 Jul, 2019 [facility] [address] [id number] [address] [place] [id number] 13 Jul, 2019 Anxiety F41.9 [facility] [address] [id number] [address] [place] [phone] 12 Jul, 2019 Anxiety F41.9 [facility] [address] [id number] [address] [place] [address] Jul, Back pain M54.9 [facility] [address] [id number] [address] [place] [phone] 02 Jul, 2019 Back pain M54.9 [facility] [address] [id number] [address] [place] [address] 28 Jul, 2019 Lumbar radiculopathy, chroni c M54.16 [facility] [address] [id number] [address] [place] [phone] 28 Jul, 2019 Back pain M54.9 [facility] [address] [id number] [address] [place] [id number] 07 Jul, 2019 [facility] ; COPD (chronic obstructive [...] with other specified complication E11.69 [facility] [address] [id number] [address] [place] [phone] Jul, Back pain M54.9 [facility] [address] [id number] [address] [place] [phone] Jul, Anxiety F41.9 [facility] [address] [id number] [address] [place] [phone] May, [facility] [address] [id number] [address] [place] [address] May, Lumbar radiculopathy, chroni c M54.16 [facility] [address] [id number] [address] [place] [address] May, Back pain M54.9 [facility] [address] [id number] [address] [place] [address] May, [facility] [address] [id number] [address] [place] [phone] May, Back pain M54.9 and Anxiety F41.9 [facility] [address] [id number] [address] [place] [address] May, [facility] [address] [id number] [address] [place] [address] May, Type 2 diabetes mellitus wit h diabetic peripheral angiopathy without gangrene E11.51 ; Arthritis M19.90 ; ED (erectile dysfunction) of organic origin N52.9 ; Morbid (severe) obesity due to excess calories E66.01 and Lumbar radiculopathy, chronic M54.16 [facility] [address] [id number] [address] [place] [phone] May, Diabetes E11.9 [facility] [address] [id number] [address] [place] [address] Apr, [facility] [address] [id number] [address] [place] [phone] Apr, Back pain M54.9 [facility] [address] [id number] [address] [place] [phone] Apr, [facility] [address] [id number] [address] [place] [phone] Apr, Anxiety F41.9 [facility] [address] [id number] [address] [place] [address] Apr, Back pain M54.9 and Lumbar r adiculopathy, chronic M54.16 [facility] [address] [id number] [address] [place] [address] Apr, Back pain M54.9 ; Anxiety F4 1.9 and Lumbar radiculopathy, chronic M54.16 [facility] [address] [facility] [id number] [address] [place] [address] Mar, [facility] [address] [id number] [address] [place] [address] Mar, [facility] [address] [facility] [id number] [address] [place] [address] Mar, Back pain M54.9 [facility] [address] [id number] [address] [place] [phone] Mar, [facility] [address] [facility] [id number] [address] [place] [address] Feb, Type 2 diabetes mellitus wit h diabetic peripheral angiopathy without gangrene E11.51 ; Lumbar radiculopathy, chronic M54.16 ; ED (erectile dysfunction) of organic origin N52.9 ; Encounter for immunization Z23 ; COPD (chronic obstructive pulmonary disease) J44.9 and Anxiety F41.9 [facility] [address] [id number] [address] [place] [phone] 09 Feb, 2019 Back pain M54.9 [facility] [address] [id number] [address] [place] [id number] 08 Feb, 2019 [facility] [address] [id number] [address] [place] [phone] Feb, [facility] [address] [id number] [address] [place] [phone] Feb, [facility] [address] [id number] [address] [place] [phone] Feb, Back pain M54.9 [facility] [address] [id number] [address] [place] [phone] Feb, [facility] [address] [id number] [address] [place] [id number] Jan, Anxiety F41.9 [facility] [address] [id number] [address] [place] [phone] Jan, Anxiety F41.9 [facility] [address] [id number] [address] [place] [address] Jan, [facility] [address] [id number] [address] [place] [address] Jan, [facility] [address] [id number] [address] [place] [phone] Jan, Back pain M54.9 [facility] [address] [id number] [address] [place] [phone] Jan, [facility] [address] [id number] [address] [place] [phone] Dec, Acute non-recurrent frontal sinusitis J01.10 [facility] [address] [id number] [address] [place] [phone] Dec, Acute non-recurrent frontal sinusitis J01.10 [facility] [address] [id number] [address] [place] [phone] 16 Dec, 2018 Type 2 diabetes mellitus wit h diabetic peripheral angiopathy without gangrene E11.51 ; Lumbar radiculopathy, chronic M54.16 ; Recurrent major depressive disorder, in full remission F33.42 and Anxiety F41.9 [facility] [address] [id number] [address] [place] [phone] Dec, [facility] [address] [id number] [address] [place] [phone] Nov, Anxiety F41.9 [facility] [address] [id number] [address] [place] [phone] Nov, [facility] [address] [id number] [address] [place] [phone] Nov, Back pain M54.9 [facility] [address] [id number] [address] [place] [phone] Nov, [facility] [address] [id number] [address] [place] [phone] Nov, Back pain M54.9 [facility] [address] [id number] [address] [place] [phone] Nov, Anxiety F41.9 [facility] [address] [id number] [address] [place] [address] Nov, [facility] [address] [id number] [address] [place] [address] Oct, Back pain M54.9 [facility] [address] [id number] [address] [place] [phone] Oct, [facility] [address] [id number] [address] [place] [phone] Oct, [facility] [address] [id number] [address] [place] [id number] Oct, [facility] [address] [id number] [address] [place] [address] September, Back pain M54.9 [facility] [address] [id number] [address] [place] [address] September, [facility] [address] [id number] [address] [place] [address] September, [facility] [address] [id number] [address] [place] [phone] September, [facility] [address] [id number] [address] [place] [phone] Aug, Back pain M54.9 [facility] [address] [id number] [address] [place] [phone] Aug, Anxiety F41.9 [facility] [address] [id number] [address] [place] [address] Aug, [facility] [address] [facility] [id number] [address] [place] [address] Aug, Pressure ulcer of other site , stage 3 L89.893 and COPD (chronic obstructive pulmonary disease) J44.9 [facility] [address] [id number] [address] [place] [address] Aug, History of smoking Z87.891 [facility] [address] [facility] [id number] [address] [place] [address] Jul, Type 2 diabetes mellitus wit h diabetic peripheral angiopathy without gangrene E11.51 [facility] [address] [id number] [address] [place] [address] Jul, Back pain M54.9 [facility] [address] [id number] [address] [place] [address] Jul, Anxiety F41.9 [facility] [address] [id number] [address] [place] [phone] Jul, [facility] [address] [facility] [id number] [address] [place] [address] Jul, Back pain M54.9 [facility] [address] [facility] [id number] [address] [place] [address] Jul, Back pain M54.9 [facility] [address] [id number] [address] [place] [address] Jul, Lumbar radiculopathy, chroni c M54.16 ; Hypertension I10 and Type 2 diabetes mellitus with diabetic peripheral angiopathy without gangrene E11.51 [facility] [address] [id number] [address] [place] [address] Jul, Back pain M54.9 [facility] [address] [id number] [address] [place] [address] Jul, Back pain M54.9 and Anxiety F41.9 [place] [address] [id number] [address] [place] [phone] Jul, [facility] [address] [id number] [address] [place] [address] May, Back pain M54.9 and Anxiety F41.9 [facility] [address] [id number] [address] [place] [address] May, [facility] [address] [id number] [address] [place] [address] Apr, Radiculopathy of lumbar rhiannon on M54.16 ; Back pain M54.9 and Anxiety F41.9 [facility] [address] [id number] [address] [place] [address] Apr, Diabetes E11.9 ; Muscle spas m M62.838 and Lumbar radiculopathy, chronic M54.16 [facility] [address] [id number] [address] [place] [address] Apr, [facility] [address] [id number] [address] [place] [address] Apr, [facility] [address] [id number] [address] [place] [address] Mar, Back pain M54.9 and Anxiety F41.9 [place] [address] [id number] [address] [place] [phone] Mar, [facility] [address] [id number] [address] [place] [phone] Mar, [facility] [address] [id number] [address] [place] [phone] Mar, [facility] [address] [facility] [id number] [address] [place] [address] Mar, Encounter for immunization Z 23 [facility] [address] [id number] [address] [place] [id number] Feb, Back pain M54.9 and Anxiety F41.9 [facility] [address] [id number] [address] [place] [address] Feb, Back pain M54.9 and Anxiety F41.9 [facility] [address] [facility] [id number] [address] [place] [address] Jan, Back pain M54.9 and Anxiety F41.9 [facility] [address] [id number] [address] [place] [phone] Jan, [facility] [address] [id number] [address] [place] [address] Dec, [facility] [address] [id number] [address] [place] [address] Dec, Back pain M54.9 and Anxiety F41.9 [facility] [address] [id number] [address] [place] [phone] 13 Dec, 2017 Diabetes E11.9 ; Type 2 diab etes mellitus with diabetic peripheral angiopathy without gangrene E11.51 ; Lumbar radiculopathy, chronic M54.16 ; COPD (chronic obstructive pulmonary disease) J44.9 and Anxiety F41.9 [facility] [address] [id number] [address] [place] [address] Dec, Back pain M54.9 and Anxiety F41.9 [facility] [address] [id number] [address] [place] [address] Nov, Back pain M54.9 and Anxiety F41.9 [facility] [address] [id number] [address] [place] [id number] Oct, [facility] [address] [id number] [address] [place] [phone] Oct, Back pain M54.9 and Anxiety F41.9 [facility] [address] [id number] [address] [place] [address] September, Anxiety F41.9 and Back pain M54.9 [place] [address] [id number] [address] [place] [address] September, Diabetes E11.9 ; Hypertensio n I10 ; COPD (chronic obstructive pulmonary disease) J44.9 and Lumbar radiculopathy, chronic M54.16 [place] [address] [id number] [address] [place] [address] September, Anxiety F41.9 [place] [address] [id number] [address] [place] [phone] Aug, [facility] [address] [id number] [address] [place] [phone] Aug, [place] [address] [id number] [address] [place] [phone] Aug, Anxiety F41.9 and Back pain M54.9 [facility] [address] [id number] [address] [place] [phone] Aug, Medicare annual wellness vis it, initial [...] Care Facility current use of insulin Z79.4 [facility] [address] [id number] [address] [place] [id number] Jul, Back pain M54.9 [facility] [address] [id number] [address] [place] [phone] Jul, [facility] [address] [id number] [address] [place] [address] Jul, Anxiety F41.9 and Back pain M54.9 [facility] [address] [id number] [address] [place] [address] Jul, Diabetes E11.9 [facility] [address] [id number] [address] [place] [id number] May, [facility] [address] [id number] [address] [place] [phone] May, Diabetes E11.9 ; Anxiety F41 .9 ; Back pain M54.9 and COPD (chronic obstructive pulmonary disease) J44.9 [facility] [address] [id number] [address] [place] [phone] May, Back pain M54.9 [facility] [address] [id number] [address] [place] [phone] May, [facility] [address] [id number] [address] [place] [phone] Apr, Back pain M54.9 [facility] [address] [id number] [address] [place] [phone] Mar, Back pain M54.9 [facility] [address] [id number] [address] [place] [phone] Mar, [facility] [address] [id number] [address] [place] [phone] 16 Mar, 2017 [facility] [address] [id number] [address] [place] [phone] 14 Mar, 2017 Radiculopathy of lumbar rhiannon on M54.16 [facility] [address] [facility] [id number] [address] [place] [phone] 13 Mar, 2017 [facility] [address] [place] [id number] [place] [phone] 07 Mar, 2017 Encounter for immunization Z 23 and Lumbar radiculopathy, chronic M54.16 [facility] [address] [place] [id number] [address] [place] [phone] Mar, Back pain M54.9 and Anxiety F41.9 [facility] [address] [place] [id number] [place] [phone] 10 Feb, 2017 Acute bilateral low back boy n with left-sided sciatica M54.42 and Acute bilateral low back pain with right-sided sciatica M54.41 [place] [address] [phone] Feb, [facility] [address] [place] [address] [id number] [place] [phone] Feb, Back pain M54.9 [place] [address] [place] [id number] [place] [phone] 05 Jan, 2017 Back pain M54.9 and Anxiety F41.9 [place] [id number] [place] [phone] 05 Jan, 2017 Diabetes E11.9 [place] [address] [place] [id number] [place] [phone] 14 Dec, 2016 Diabetes E11.9 ; Back pain M 54.9 ; Anxiety F41.9 and Insulin long- term use Z79.4 [place] [address] [facility] [id number] [address] [place] [phone] Dec, Anxiety F41.9 [place] [address] [place] [id number] [place] [phone] Dec, Back pain M54.9 [place] [address] [id number] [address] [place] [phone] Nov, Back pain M54.9 [facility] [address] [id number] [address] [place] [phone] Oct, Back pain M54.9 and Anxiety F41.9 [facility] [address] [id number] [address] [place] [phone] September, Back pain M54.9 [facility] [address] [id number] [address] [place] [phone] September, Back pain M54.9 and Anxiety F41.9 [facility] [address] [id number] [address] [place] [phone] Aug, Diabetes E11.9 ; Anxiety F41 .9 ; Back pain M54.9 and PAD (peripheral artery disease) I73.9 [facility] [address] [id number] [address] [place] [phone] Aug, Anxiety F41.9 [facility] [address] [id number] [address] [place] [address] Aug, Back pain M54.9 [facility] [address] [id number] [address] [place] [id number] 23 Jul, 2016 Back pain M54.9 [facility] [address] [id number] [address] [place] [address] Jul, Back pain M54.9 [facility] [address] [id number] [address] [place] [id number] 23 Jul, 2016 Back pain M54.9 [facility] [address] [id number] [address] [place] [id number] 16 Jul, 2016 Dorsalgia M54.9 [facility] [address] [id number] [address] [place] [address] 14 Jul, 2016 [facility] [address] [id number] [address] [place] [address] May, Back pain M54.9 [facility] [address] [id number] [address] [place] [address] May, Diabetes E11.9 ; Anxiety F41 .9 ; Port catheter in place Z95.828 ; Encounter for immunization Z23 and Insulin long-term use Z79.4 [facility] [address] [id number] [address] [place] [address] Apr, Back pain M54.9 [facility] [address] [id number] [address] [place] [address] Apr, Back pain M54.9 [facility] [address] [id number] [address] [place] [address] Apr, [facility] [address] [id number] [address] [place] [address] Apr, Back pain M54.9 [facility] [address] [id number] [address] [place] [id number] Mar, COPD (chronic obstructive pu lmonary disease) J44.9 [facility] [address] [id number] [address] [place] [phone] Feb, [facility] [address] [id number] [address] [place] [address] Jan, [facility] [address] [id number] [address] [place] [address] Jan, [facility] [address] [id number] [address] [place] [address] Jan, [facility] [address] [id number] [address] [place] [address] Jan, [facility] [address] [id number] [address] [place] [id number] Dec, Diabetes E11.9 ; Hypoxia R09 .02 and Back pain M54.9 [facility] [address] [id number] [address] [place] [id number] Dec, [facility] [address] [id number] [address] [place] [address] Nov, [facility] [address] [id number] [address] [place] [id number] 15 Oct, 2015 Anxiety F41.9 [facility] [address] [id number] [address] [place] [address] Oct, Back pain M54.9 [facility] [address] [id number] [address] [place] [address] September, Back pain M54.9 [facility] [address] [id number] [address] [place] [address] September, Diabetes E11.9 [facility] [address] [id number] [address] [place] [phone] September, [facility] [address] [id number] [address] [place] [address] September, Diabetes E11.9 ; Insulin sarai g-term use Z79.4 and Back pain M54.9 [facility] [address] [id number] [address] [place] [id number] Aug, Back pain M54.9 [facility] [address] [id number] [address] [place] [phone] Aug, Back pain M54.9 ; Anxiety F4 1.9 and Arthropathy, unspecified M12.9 [facility] [address] [id number] [address] [place] [id number] Jul, Back pain M54.9 [facility] [address] [id number] [address] [place] [address] Jul, Anxiety F41.9 [facility] [address] [facility] [id number] [address] [place] [phone] Jul, Back pain M54.9 [facility] [address] [facility] [id number] [address] [place] [id number] 17 Jul, 2015 [facility] [address] [facility] [id number] [address] [place] [phone] Jul, [facility] [address] [facility] [id number] [address] [place] [address] May, Back pain M54.9 ; Diabetes E 11.9 ; Insulin long-term use Z79.4 ; COPD (chronic obstructive pulmonary disease) J44.9 and Hypertension I10 [facility] [address] [facility] [id number] [address] [place] [id number] May, Chronic pain G89.29 [facility] [address] [facility] [id number] [address] [place] [phone] Apr, [facility] [address] [facility] [id number] [address] [place] [phone] Apr, [facility] [address] [facility] [id number] [address] [place] [address] Mar, [facility] [address] [facility] [id number] [address] [place] [phone] Mar, Encounter for immunization Z 23 and Diabetes E11.9 [facility] [address] [facility] [id number] [address] [place] [phone] Feb, [facility] [address] [facility] [id number] [address] [place] [phone] Feb, [facility] [address] [facility] [id number] [address] [place] [id number] 23 Jan, 2015 [facility] [address] [facility] [id number] [address] [place] [id number] 16 Jan, 2015 [facility] [address] [facility] [id number] [address] [place] [phone] Dec, [facility] [address] [facility] [id number] [address] [place] [id number] Dec, [facility] [address] [id number] [address] [place] [id number] Dec, Unspecified arthropathy, sit e unspecified 716.90 and Diabetes mellitus type 2, uncontrolled 250.02 [facility] [address] [id number] [address] [place] [address], [place] [address] Dec, [facility] [address] [id number] [address] [place] [phone] Nov, [facility] [address] [id number] [address] [place] [address], [place] [address] Oct, [facility] [address] [id number] [address] [place] [address], [place] [address] September, [facility] [address] [id number] [address] [place] [address], [place] [address] September, [facility] [address] [id number] [address] [place] [address], [place] [address] September, [facility] [address] [id number] [address] [place] [address], [place] [address] September, [facility] [address] [id number] [address] [place] [address], [place] [address] Aug, [facility] [address] [id number] [address] [place] [address], [place] [address] Aug, [facility] [address] [id number] [address] [place] [address], [place] [address] Jul, [facility] [address] [id number] [address] [place] [id number] 18 Jul, 2014 [facility] [address] [id number] [address] [place] [address], [place] [address] 16 Jul, 2014 [facility] [address] [id number] [address] [place] [address], [place] [address] 16 Jul, 2014 [facility] [address] [id number] [address] [place] [phone] 16 Jul, 2014 [facility] [address] [id number] [address] [place] [address], [place] [address] 16 Jul, 2014 [facility] [address] [id number] [address] [place] [address], [place] [address] 16 Jul, 2014 [facility] [address] [id number] [address] [place] [address], [place] [address] 16 Jul, 2014 [facility] [address] [id number] [address] [place] [address], [place] [address] 16 Jul, 2014 [facility] [address] [id number] [address] [place] [address], [place] [address] 13 Jul, 2014 [facility] [address] [id number] [address] [place] [address], [place] [address] 13 Jul, 2014 [facility] [address] [id number] [address] [place] [address], [place] [address] 09 Jul, 2014 [facility] [address] [id number] [address] [place] [address], [place] [address] 09 Jul, 2014 [facility] [address] [id number] [address] [place] [address], [place] [address] 17 Jul, 2014 [facility] [address] [id number] [address] [place] [address], [place] [address] 17 Jul, 2014 [facility] [address] [id number] [address] [place] [address], [place] [address] 16 Jul, 2014 [facility] [address] [id number] [address] [place] [address], [place] [address] 16 Jul, 2014 [facility] [address] [id number] [address] [place] [address], [place] [address] 16 Jul, 2014 [facility] [address] [id number] [address] [place] [address], [place] [address] 16 Jul, 2014 [facility] [address] [id number] [address] [place] [address], [place] [address] 16 Jul, 2014 [facility] [address] [id number] [address] [place] [address], [place] [address] 16 Jul, 2014 [facility] [address] [id number] [address] [place] [address], [place] [address] Jul, 2014 [facility] [address] [id number] [address] [place] [address], [place] [address] 16 Jul, 2014 [facility] [address] [id number] [address] [place] [address], [place] [address] Jul, 2014 [facility] [address] [id number] [address] [place] [address], [place] [address] Jul, 2014 [facility] [address] [id number] [address] [place] [address], [place] [address] Jul, 2014 [facility] [address] [id number] [address] [place] [address], [place] [address] Jul, 2014 [facility] [address] [id number] [address] [place] [address], [place] [address] Jul, 2014 [facility] [address] [id number] [address] [place] [address], [place] [address] Jul, [facility] [address] [id number] [address] [place] [address], [place] [address] May, [facility] [address] [id number] [address] [place] [address], [place] [address] May, [facility] [address] [id number] [address] [place] [address], [place] [address] May, [facility] [address] [id number] [address] [place] [address], [place] [address] May, [facility] [address] [id number] [address] [place] [address], [place] [address] May, [facility] [address] [id number] [address] [place] [address], [place] [address] May, [facility] [address] [id number] [address] [place] [address], [place] [address] May, [facility] [address] [id number] [address] [place] [address], [place] [address] May, [facility] [address] [id number] [address] [place] [address], [place] [address] May, [facility] [address] [id number] [address] [place] [address], [place] [address] May, [facility] [address] [id number] [address] [place] [address], [place] [address] Apr, [facility] [address] [id number] [address] [place] [address], [place] [address] Apr, [facility] [address] [id number] [address] [place] [address], [place] [address] Apr, [facility] [address] [id number] [address] [place] [address], [place] [address] Apr, [facility] [address] [id number] [address] [place] [address], [place] [address] Apr, [facility] [address] [id number] [address] [place] [address], [place] [address] Apr, [facility] [address] [id number] [address] [place] [address], [place] [address] Mar, [facility] [address] [id number] [address] [place] [address], [place] [address] Mar, [facility] [address] [id number] [address] [place] [address], [place] [address] Mar, [facility] [address] [id number] [address] [place] [address], [place] [address] Mar, [facility] [address] [id number] [address] [place] [address], [place] [address] Mar, [facility] [address] [id number] [address] [place] [address], [place] [address] Mar, [facility] [address] [id number] [address] [place] [address], [place] [address] Mar, [facility] [address] [id number] [address] [place] [address], [place] [address] 17 Mar, 2014 [facility] [address] [id number] [address] [place] [address], [place] [address] Mar, [facility] [address] [id number] [address] [place] [address], [place] [address] Mar, [facility] [address] [id number] [address] [place] [address], [place] [address] Mar, [facility] [address] [id number] [address] [place] [address], [place] [address] Feb, [facility] [address] [id number] [address] [place] [address], [place] [address] Feb, [facility] [address] [id number] [address] [place] [address], [place] [address] Feb, [facility] [address] [id number] [address] [place] [address], [place] [address] Feb, [facility] [address] [id number] [address] [place] [address], [place] [address] Feb, [facility] [address] [id number] [address] [place] [address], [place] [address] Feb, [facility] [address] [id number] [address] [place] [address], [place] [address] Feb, [facility] [address] [id number] [address] [place] [address], [place] [address] Feb, [facility] [address] [id number] [address] [place] [address], [place] [address] Feb, [facility] [address] [id number] [address] [place] [address], [place] [address] Feb, [facility] [address] [id number] [address] [place] [address], [place] [address] Jan, [facility] [address] [id number] [address] [place] [address], [place] [address] 22 Jan, 2013 [facility] [address] [id number] [address] [place] [address], [place] [address] 16 Jan, 2013 [facility] [address] [id number] [address] [place] [address], [place] [address] 16 Jan, 2013 [facility] [address] [id number] [address] [place] [address], [place] [address] 12 Jan, 2014 [facility] [address] [id number] [address] [place] [address], [place] [address] Jan, [facility] [address] [id number] [address] [place] [address], [place] [address] Jan, [facility] [address] [id number] [address] [place] [address], [place] [address] Dec, [facility] [address] [id number] [address] [place] [address], [place] [address] Dec, [facility] [address] [id number] [address] [place] [address], [place] [address] Dec, [facility] [address] [id number] [address] [place] [address], [place] [address] Dec, [facility] [address] [id number] [address] [place] [address], [place] [address] Dec, [facility] [address] [id number] [address] [place] [address], [place] [address] Dec, [facility] [address] [id number] [address] [place] [address], [place] [address] Dec, [facility] [address] [id number] [address] [place] [address], [place] [address] Dec, [facility] [address] [id number] [address] [place] [address], [place] [address] Oct, [facility] [address] [id number] [address] [place] [address] Oct, [facility] [address] [id number] [address] [place] [address], [place] [address] September, [facility] [address] [id number] [address] [place] [address], [place] [address] September, [facility] [address] [id number] [address] [place] [address], [place] [address] September, [facility] [address] [id number] [address] [place] [address], [place] [address] September, [facility] [address] [id number] [address] [place] [address], [place] [address] September, [facility] [address] [id number] [address] [place] [address], [place] [address] September, [facility] [address] [id number] [address] [place] [address], [place] [address] September, [facility] [address] [id number] [address] [place] [address], [place] [address] Aug, [facility] [address] [id number] [address] [place] [address], [place] [address] Aug, [facility] [address] [id number] [address] [place] [address], [place] [address] Jul, [facility] [address] [id number] [address] [place] [address], [place] [address] Jul, [facility] [address] [id number] [address] [place] [address], [place] [address] Jul, [facility] [address] [id number] [address] [place] [address], [place] [address] Jul, [facility] [address] [id number] [address] [place] [address], [place] [address] Jul, [facility] [address] [id number] [address] [place] [address], [place] [address] Jul, [facility] [address] [id number] [address] [place] [address], [place] [address] Jul, [facility] [address] [id number] [address] [place] [address], [place] [address] Jul, [facility] [address] [id number] [address] [place] [address], [place] [address] May, [facility] [address] [id number] [address] [place] [address], [place] [address] May, [facility] [address] [id number] [address] [place] [address], [place] [address] May, [facility] [address] [id number] [address] [place] [address], [place] [address] May, [facility] [address] [id number] [address] [place] [address], [place] [address] Apr, [facility] [address] [id number] [address] [place] [address], [place] [address] Mar, [facility] [address] [id number] [address] [place] [address], [place] [address] Mar, [facility] [address] [id number] [address] [place] [address], [place] [address] Mar, [facility] [address] [id number] [address] [place] [address], [place] [address] Mar, [facility] [address] [id number] [address] [place] [address], [place] [address] Mar, [facility] [address] [id number] [address] [place] [address], [place] [address] Mar, [facility] [address] [id number] [address] [place] [address], [place] [address] Mar, [facility] [address] [id number] [address] [place] [address], [place] [address] Mar, [facility] [address] [id number] [address] [place] [address] Mar, [facility] [address] [id number] [address] [place] [address], [place] [address] Mar, [facility] [address] [id number] [address] [place] [address], [place] [address] Mar, [facility] [address] [id number] [address] [place] [address], [place] [address] Mar, [facility] [address] [id number] [address] [place] [address], [place] [address] Feb, [facility] [address] [id number] [address] [place] [address], [place] [address] Feb, [facility] [address] [id number] [address] [place] [address], [place] [address] Feb, [facility] [address] [id number] [address] [place] [address], [place] [address] Feb, [facility] [address] [id number] [address] [place] [address], [place] [address] Feb, [facility] [address] [id number] [address] [place] [address], [place] [address] Jan, [facility] [address] [id number] [address] [place] [address], [place] [address] Dec, [facility] [address] [id number] [address] [place] [address], [place] [address] Dec, [facility] [address] [id number] [address] [place] [address], [place] [address] Dec, [facility] [address] [id number] [address] [place] [address], [place] [address] Nov, [facility] [address] [id number] [address] [place] [address], [place] [address] Nov, [facility] [address] [id number] [address] [place] [address], [place] [address] Nov, [facility] [address] [id number] [facility] [place] [address] 27 Oct, 2012 [facility] [address] [id number] [address] [place] [address], [place] [address] Oct, [facility] [address] [id number] [address] [place] [address], [place] [address] Oct, [facility] [address] [id number] [address] [place] [address], [place] [address] September, [facility] [address] [id number] [address] [place] [address], [place] [address] September, [facility] [address] [id number] [address] [place] [address], [place] [address] September, [facility] [address] [id number] [address] [place] [address], [place] [address] September, [facility] [address] [id number] [address] [place] [address], [place] [address] September, [facility] [address] [id number] [address] [place] [address], [place] [address] Aug, [facility] [address] [id number] [address] [place] [address], [place] [address] Aug, [facility] [address] [id number] [address] [place] [address], [place] [address] Aug, [facility] [address] [id number] [address] [place] [address], [place] [address] Jul, [facility] [address] [id number] [address] [place] [address], [place] [address] Jul, [facility] [address] [id number] [address] [place] [address], [place] [address] Jul, [facility] [address] [id number] [address] [place] [address], [place] [address] Jul, [facility] [address] [id number] [address] [place] [address], [place] [address] Jul, [facility] [address] [id number] [address] [place] [address], [place] [address] Jul, [facility] [address] [id number] [address] [place] [address], [place] [address] Jul, [facility] [address] [id number] [address] [place] [address], [place] [address] May, [facility] [address] [id number] [address] [place] [address], [place] [address] May, [facility] [address] [id number] [address] [place] [address], [place] [address] May, [facility] [address] [id number] [address] [place] [address], [place] [address] Apr, [facility] [address] [id number] [address] [place] [address], [place] [address] Apr, [facility] [address] [id number] [address] [place] [address], [place] [address] Apr, [facility] [address] [id number] [address] [place] [address], [place] [address] Apr, [facility] [address] [id number] [address] [place] [address], [place] [address] Apr, [facility] [address] [id number] [address] [place] [address], [place] [address] Mar, [facility] [address] [id number] [address] [place] [address], [place] [address] 29 Mar, 2012 [facility] [address] [id number] [address] [place] [address], [place] [address] Mar, [facility] [address] [id number] [address] [place] [address], [place] [address] 15 Mar, 2012 [facility] [address] [id number] [address] [place] [address], [place] [address] Feb, [facility] [address] [id number] [address] [place] [address], [place] [address] Feb, [facility] [address] [id number] [address] [place] [address], [place] [address] Feb, [facility] [address] [id number] [address] [place] [address], [place] [address] Feb, [facility] [address] [id number] [address] [place] [address], [place] [address] Feb, [facility] [address] [id number] [address] [place] [address], [place] [address] Jan, [facility] [address] [id number] [address] [place] [address], [place] [address] Dec, [facility] [address] [id number] [address] [place] [address], [place] [address] Dec, [facility] [address] [id number] [address] [place] [address], [place] [address] Dec, [facility] [address] [id number] [address] [place] [address], [place] [address] Nov, [facility] [address] [id number] [address] [place] [address], [place] [address] Nov, [facility] [address] [id number] [address] [place] [address], [place] [address] Nov, [facility] [address] [id number] [address] [place] [address], [place] [address] Oct, [facility] [address] [id number] [address] [place] [address], [place] [address] Oct, [facility] [address] [id number] [address] [place] [address], [place] [address] Oct, [facility] [address] [id number] [address] [place] [address], [place] [address] Oct, [facility] [address] [id number] [address] [place] [address], [place] [address] September, [facility] [address] [id number] [address] [place] [address], [place] [address] September, [facility] [address] [id number] [address] [place] [address], [place] [address] Aug, [facility] [address] [id number] [address] [place] [address], [place] [address] Aug, [facility] [address] [id number] [address] [place] [address], [place] [address] Aug, [facility] [address] [id number] [address] [place] [address], [place] [address] Aug, [facility] [address] [id number] [address] [place] [address], [place] [address] Aug, [facility] [address] [id number] [address] [place] [address], [place] [address] Aug, [facility] [address] [id number] [address] [place] [address], [place] [address] Aug, [facility] [address] [id number] [address] [place] [address], [place] [address] Jul, [facility] [address] [id number] [address] [place] [address], [place] [address] Jul, [facility] [address] [id number] [address] [place] [address], [place] [address] Jul, [facility] [address] [id number] [address] [place] [address], [place] [address] May, [facility] [address] [id number] [address] [place] [address], [place] [address] May, [facility] [address] [id number] [address] [place] [address], [place] [address] May, [facility] [address] [id number] [address] [place] [address], [place] [address] Apr, [facility] [address] [id number] [address] [place] [address] Apr, [facility] [address] [id number] [address] [place] [address] Mar, [facility] [address] [id number] [address] [place] [address] Mar, [facility] [address] [id number] [address] [place] [address] Mar, [facility] [address] [id number] [address] [place] [address] Mar, [facility] [address] [id number] [address] [place] [address] Mar, [facility] [address] [id number] [address] [place] [address] Mar, [facility] [address] [id number] [address] [place] [address] Feb, [facility] [address] [id number] [address] [place] [address] Feb, [facility] [address] [id number] [address] [place] [address] Feb, IMMUNIZATIONS No Known Immunizations SOCIAL HISTORY [...]
--- OUTSIDE RECORDS SUMMARY | 2020-01-03 08:09 | XMS REPORT ---
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 Name Role Phone FERNY SILVERIO Unavailable PROBLEMS Type Condition ICD9-CM Code SEP88-TR Code Onset Dates Condition S tatus SNOMED Code Problem Hypertension I10 Active 6190699 3 Problem Hypoxia R09.02 Active 385918195 Problem COPD (chronic obstructive pulmonary disease) J44.9 Active 39786399 Problem Lumbar radiculopathy, chronic M54.16 Active 830099332 Problem [facility] current use of insulin Z79.4 Active 439176563 Problem Recurrent major depressive disorder, in full remission F33.42 Active 750061566 Problem Hyperlipidemia, unspecified E78.5 Ac tive 11639351 Problem PAD (peripheral artery disease) I73.9 Active 846162779 Problem Type 2 diabetes mellitus with other specified complication E11.69 Active 411908978288 Problem Anxiety F41.9 Active 60851618 Problem Type 2 diabetes mellitus wit h diabetic peripheral angiopathy without gangrene E11.51 Active 129737628 Problem ED (erectile dysfunction) of organic origin N52.9 Active 909123605 Problem Arthritis M19.90 Active 4688906 Problem Morbid (severe) obesity due to excess calories E66 .01 Active 202925310 ALLERGIES No Information ENCOUNTERS Encounter Location Date Diagnosis [address] 340 [id number] [address] Nov, Back pain M54.9 [facility] [address] [facility] [id number] [address] [place] [phone] Nov, Back pain M54.9 [facility] [address] [facility] [id number] [address] [place] [phone] Nov, [facility] [address] [facility] [address] [id number] [address] Oct, Anxiety F41.[address] 340B [id number] [place] [address] Oct, [facility] [address] [id number] [address] [place] [id number] 17 Oct, 2019 [facility] [address] [id number] [address] [place] [id number] 15 Oct, 2019 Back pain M54.9 and Lumbar r adiculopathy, chronic M54.16 [facility] [address] [id number] [address] [place] [id number] 04 Oct, 2019 Lumbar radiculopathy, chroni c M54.16 [facility] [address] [id number] [address] [place] [phone] 03 Oct, 2019 Anxiety F41.[address] 340B [id number] [address] Oct, [facility] [address] [id number] [address] [place] [address] September, Back pain M54.9 and Lumbar r adiculopathy, chronic M54.[address] 340B [id number] [address] September, Anxiety F41.[address] [id number] [place] [address] Aug, [facility] [address] [id number] [address] [place] [phone] 24 Aug, 2019 Back pain M54.9 and Lumbar r adiculopathy, chronic M54.16 [facility] [address] [id number] [address] [place] [id number] 10 Aug, 2019 Anxiety F41.9 ; Back pain M5 4.9 and Lumbar radiculopathy, chronic M54.16 [facility] [address] [id number] [address] [place] [id number] 09 Aug, 2019 Lumbar radiculopathy, chroni c M54.16 ; Anxiety F41.9 ; Type 2 diabetes mellitus with other specified complication E11.69 and Hypertension I10 [facility] [address] [id number] [address] [place] [id number] 30 Jul, 2019 [facility] [address] [id number] [address] [place] [phone] 27 Jul, 2019 Lumbar radiculopathy, chroni c M54.16 ; Back pain M54.9 and Anxiety F41.9 [facility] [address] [id number] [address] [place] [id number] 23 Jul, 2019 [facility] [address] [id number] [address] [place] [phone] 13 Jul, 2019 Anxiety F41.9 [facility] [address] [id number] [address] [place] [id number] 12 Jul, 2019 Anxiety F41.9 [facility] [address] [id number] [address] [place] [phone] Jul, Back pain M54.9 [facility] [address] [id number] [address] [place] [phone] 02 Jul, 2019 Back pain M54.9 [facility] [address] [id number] [address] [place] [id number] 28 Jul, 2019 Lumbar radiculopathy, chroni c M54.16 [facility] [address] [id number] [address] [place] [id number] 28 Jul, 2019 Back pain M54.9 [facility] [address] [id number] [address] [place] [phone] 07 Jul, 2019 [facility] ; COPD (chronic obstructive [...] diabetes mellitus with other specified complication E11.69 [facility] [address] [id number] [address] [place] [phone] Jul, Back pain M54.9 [facility] [address] [id number] [address] [place] [phone] Jul, Anxiety F41.9 [facility] [address] [id number] [address] [place] [address] May, [facility] [address] [id number] [address] [place] [phone] May, Lumbar radiculopathy, chroni c M54.16 [facility] [address] [id number] [address] [place] [phone] May, Back pain M54.9 [facility] [address] [id number] [address] [place] [phone] May, [facility] [address] [id number] [address] [place] [phone] May, Back pain M54.9 and Anxiety F41.9 [facility] [address] [id number] [address] [place] [id number] May, [facility] [address] [id number] [address] [place] [phone] May, Type 2 diabetes mellitus wit h diabetic peripheral angiopathy without gangrene E11.51 ; Arthritis M19.90 ; ED (erectile dysfunction) of organic origin N52.9 ; Morbid (severe) obesity due to excess calories E66.01 and Lumbar radiculopathy, chronic M54.16 [facility] [address] [id number] [address] [place] [phone] May, Diabetes E11.9 [facility] [address] [id number] [address] [place] [phone] Apr, [facility] [address] [id number] [address] [place] [phone] Apr, Back pain M54.9 [facility] [address] [id number] [address] [place] [id number] Apr, [facility] [address] [id number] [address] [place] [phone] Apr, Anxiety F41.9 [facility] [address] [id number] [address] [place] [phone] Apr, Back pain M54.9 and Lumbar r adiculopathy, chronic M54.16 [facility] [address] [id number] [address] [place] [phone] Apr, Back pain M54.9 ; Anxiety F4 1.9 and Lumbar radiculopathy, chronic M54.16 [facility] [address] [facility] [id number] [address] [place] [phone] Mar, [facility] [address] [id number] [address] [place] [phone] Mar, [facility] [address] [facility] [id number] [address] [place] [phone] Mar, Back pain M54.9 [facility] [address] [id number] [address] [place] [id number] Mar, [facility] [address] [facility] [id number] [address] [place] [id number] Feb, Type 2 diabetes mellitus wit h diabetic peripheral angiopathy without gangrene E11.51 ; Lumbar radiculopathy, chronic M54.16 ; ED (erectile dysfunction) of organic origin N52.9 ; Encounter for immunization Z23 ; COPD (chronic obstructive pulmonary disease) J44.9 and Anxiety F41.9 [facility] [address] [id number] [address] [place] [id number] 09 Feb, 2019 Back pain M54.9 [facility] [address] [id number] [address] [place] [phone] 08 Feb, 2019 [facility] [address] [id number] [address] [place] [id number] Feb, [facility] [address] [id number] [address] [place] [id number] Feb, [facility] [address] [id number] [address] [place] [id number] Feb, Back pain M54.9 [facility] [address] [id number] [address] [place] [phone] Feb, [facility] [address] [id number] [address] [place] [phone] Jan, Anxiety F41.9 [facility] [address] [id number] [address] [place] [phone] Jan, Anxiety F41.9 [facility] [address] [id number] [address] [place] [phone] Jan, [facility] [address] [id number] [address] [place] [id number] Jan, [facility] [address] [id number] [address] [place] [phone] Jan, Back pain M54.9 [facility] [address] [id number] [address] [place] [id number] Jan, [facility] [address] [id number] [address] [place] [id number] Dec, Acute non-recurrent frontal sinusitis J01.10 [facility] [address] [id number] [address] [place] [id number] Dec, Acute non-recurrent frontal sinusitis J01.10 [facility] [address] [id number] [address] [place] [id number] 16 Dec, 2018 Type 2 diabetes mellitus wit h diabetic peripheral angiopathy without gangrene E11.51 ; Lumbar radiculopathy, chronic M54.16 ; Recurrent major depressive disorder, in full remission F33.42 and Anxiety F41.9 [facility] [address] [id number] [address] [place] [phone] Dec, [facility] [address] [id number] [address] [place] [id number] Nov, Anxiety F41.9 [facility] [address] [id number] [address] [place] [phone] Nov, [facility] [address] [id number] [address] [place] [phone] Nov, Back pain M54.9 [facility] [address] [id number] [address] [place] [id number] Nov, [facility] [address] [id number] [address] [place] [id number] Nov, Back pain M54.9 [facility] [address] [id number] [address] [place] [id number] Nov, Anxiety F41.9 [facility] [address] [id number] [address] [place] [phone] Nov, [facility] [address] [id number] [address] [place] [id number] Oct, Back pain M54.9 [facility] [address] [id number] [address] [place] [phone] Oct, [facility] [address] [id number] [address] [place] [phone] Oct, [facility] [address] [id number] [address] [place] [id number] Oct, [facility] [address] [id number] [address] [place] [phone] September, Back pain M54.9 [facility] [address] [id number] [address] [place] [id number] September, [facility] [address] [id number] [address] [place] [phone] September, [facility] [address] [id number] [address] [place] [phone] September, [facility] [address] [id number] [address] [place] [id number] Aug, Back pain M54.9 [facility] [address] [id number] [address] [place] [phone] Aug, Anxiety F41.9 [facility] [address] [id number] [address] [place] [id number] Aug, [facility] [address] [facility] [id number] [address] [place] [id number] Aug, Pressure ulcer of other site , stage 3 L89.893 and COPD (chronic obstructive pulmonary disease) J44.9 [facility] [address] [id number] [address] [place] [phone] Aug, History of smoking Z87.891 [facility] [address] [facility] [id number] [address] [place] [phone] Jul, Type 2 diabetes mellitus wit h diabetic peripheral angiopathy without gangrene E11.51 [facility] [address] [id number] [address] [place] [id number] Jul, Back pain M54.9 [facility] [address] [id number] [address] [place] [phone] Jul, Anxiety F41.9 [facility] [address] [id number] [address] [place] [phone] Jul, [facility] [address] [facility] [id number] [address] [place] [phone] Jul, Back pain M54.9 [facility] [address] [facility] [id number] [address] [place] [phone] Jul, Back pain M54.9 [facility] [address] [id number] [address] [place] [phone] Jul, Lumbar radiculopathy, chroni c M54.16 ; Hypertension I10 and Type 2 diabetes mellitus with diabetic peripheral angiopathy without gangrene E11.51 [facility] [address] [id number] [address] [place] [phone] Jul, Back pain M54.9 [facility] [address] [id number] [address] [place] [id number] Jul, Back pain M54.9 and Anxiety F41.9 [place] [address] [id number] [address] [place] [phone] Jul, [facility] [address] [id number] [address] [place] [id number] May, Back pain M54.9 and Anxiety F41.9 [facility] [address] [id number] [address] [place] [phone] May, [facility] [address] [id number] [address] [place] [phone] Apr, Radiculopathy of lumbar rhiannon on M54.16 ; Back pain M54.9 and Anxiety F41.9 [facility] [address] [id number] [address] [place] [phone] Apr, Diabetes E11.9 ; Muscle spas m M62.838 and Lumbar radiculopathy, chronic M54.16 [facility] [address] [id number] [address] [place] [phone] Apr, [facility] [address] [id number] [address] [place] [phone] Apr, [facility] [address] [id number] [address] [place] [id number] Mar, Back pain M54.9 and Anxiety F41.9 [place] [address] [id number] [address] [place] [phone] Mar, [facility] [address] [id number] [address] [place] [phone] Mar, [facility] [address] [id number] [address] [place] [phone] Mar, [facility] [address] [facility] [id number] [address] [place] [id number] Mar, Encounter for immunization Z 23 [facility] [address] [id number] [address] [place] [phone] Feb, Back pain M54.9 and Anxiety F41.9 [facility] [address] [id number] [address] [place] [phone] Feb, Back pain M54.9 and Anxiety F41.9 [facility] [address] [facility] [id number] [address] [place] [phone] Jan, Back pain M54.9 and Anxiety F41.9 [facility] [address] [id number] [address] [place] [phone] Jan, [facility] [address] [id number] [address] [place] [phone] Dec, [facility] [address] [id number] [address] [place] [phone] Dec, Back pain M54.9 and Anxiety F41.9 [facility] [address] [id number] [address] [place] [phone] 13 Dec, 2017 Diabetes E11.9 ; Type 2 diab etes mellitus with diabetic peripheral angiopathy without gangrene E11.51 ; Lumbar radiculopathy, chronic M54.16 ; COPD (chronic obstructive pulmonary disease) J44.9 and Anxiety F41.9 [facility] [address] [id number] [address] [place] [phone] Dec, Back pain M54.9 and Anxiety F41.9 [facility] [address] [id number] [address] [place] [phone] Nov, Back pain M54.9 and Anxiety F41.9 [facility] [address] [id number] [address] [place] [phone] Oct, [facility] [address] [id number] [address] [place] [phone] Oct, Back pain M54.9 and Anxiety F41.9 [facility] [address] [id number] [address] [place] [id number] September, Anxiety F41.9 and Back pain M54.9 [place] [address] [id number] [address] [place] [id number] September, Diabetes E11.9 ; Hypertensio n I10 ; COPD (chronic obstructive pulmonary disease) J44.9 and Lumbar radiculopathy, chronic M54.16 [place] [address] [id number] [address] [place] [phone] September, Anxiety F41.9 [place] [address] [id number] [address] [place] [phone] Aug, [facility] [address] [id number] [address] [place] [phone] Aug, [place] [address] [id number] [address] [place] [phone] Aug, Anxiety F41.9 and Back pain M54.9 [facility] [address] [id number] [address] [place] [id number] Aug, Medicare annual wellness vis it, initial Z00.00 ; COPD (chronic obstructive pulmonary disease) J44.9 ; PAD (peripheral artery disease) I73.9 ; Insulin long-term use Z79.4 ; Hypertension I10 ; Anxiety F41.9 ; Recurrent major depressive disorder, in full remission F33.42 ; Pressure ulcer of other site, stage 3 L89.893 ; Type 2 diabetes mellitus with diabetic peripheral angiopathy without gangrene E11.51 and [facility] current use of insulin Z79.4 [facility] [address] [id number] [address] [place] [phone] Jul, Back pain M54.9 [facility] [address] [id number] [address] [place] [phone] Jul, [facility] [address] [id number] [address] [place] [phone] Jul, Anxiety F41.9 and Back pain M54.9 [facility] [address] [id number] [address] [place] [id number] Jul, Diabetes E11.9 [facility] [address] [id number] [address] [place] [id number] May, [facility] [address] [id number] [address] [place] [phone] May, Diabetes E11.9 ; Anxiety F41 .9 ; Back pain M54.9 and COPD (chronic obstructive pulmonary disease) J44.9 [facility] [address] [id number] [address] [place] [phone] May, Back pain M54.9 [facility] [address] [id number] [address] [place] [phone] May, [facility] [address] [id number] [address] [place] [id number] Apr, Back pain M54.9 [facility] [address] [id number] [address] [place] [phone] Mar, Back pain M54.9 [facility] [address] [id number] [address] [place] [id number] Mar, [facility] [address] [id number] [address] [place] [phone] 16 Mar, 2017 [facility] [address] [id number] [address] [place] [id number] 14 Mar, 2017 Radiculopathy of lumbar rhiannon on M54.16 [facility] [address] [facility] [id number] [address] [place] [phone] 13 Mar, 2017 [facility] [address] [place] [id number] [place] [phone] 07 Mar, 2017 Encounter for immunization Z 23 and Lumbar radiculopathy, chronic M54.16 [facility] [address] [id number] [address] [place] [phone] Mar, Back pain M54.9 and Anxiety F41.9 [facility] [id number] [place] [phone] 10 Feb, 2017 Acute bilateral low back boy n with left-sided sciatica M54.42 and Acute bilateral low back pain with right-sided sciatica M54.41 [place] [address] [id number] Feb, [facility] [address] [place] [address] [id number] [place] [phone] Feb, Back pain M54.9 [place] [address] [place] [id number] [place] [phone] 05 Jan, 2017 Back pain M54.9 and Anxiety F41.9 [place] [id number] [place] [id number] 05 Jan, 2017 Diabetes E11.9 [place] [address] [place] [id number] [place] [phone] 14 Dec, 2016 Diabetes E11.9 ; Back pain M 54.9 ; Anxiety F41.9 and Insulin long- term use Z79.4 [place] [address] [facility] [id number] [address] [place] [id number] Dec, Anxiety F41.9 [place] [address] [address] [place] [id number] [address] [place] [id number] Dec, Back pain M54.9 [place] [address] [id number] [address] [place] [phone] Nov, Back pain M54.9 [facility] [address] [id number] [address] [place] [phone] Oct, Back pain M54.9 and Anxiety F41.9 [facility] [address] [id number] [address] [place] [id number] September, Back pain M54.9 [facility] [address] [id number] [address] [place] [id number] September, Back pain M54.9 and Anxiety F41.9 [facility] [address] [id number] [address] [place] [id number] Aug, Diabetes E11.9 ; Anxiety F41 .9 ; Back pain M54.9 and PAD (peripheral artery disease) I73.9 [facility] [address] [id number] [address] [place] [phone] Aug, Anxiety F41.9 [facility] [address] [id number] [address] [place] [id number] Aug, Back pain M54.9 [facility] [address] [id number] [address] [place] [id number] 23 Jul, 2016 Back pain M54.9 [facility] [address] [id number] [address] [place] [id number] Jul, Back pain M54.9 [facility] [address] [id number] [address] [place] [id number] 23 Jul, 2016 Back pain M54.9 [facility] [address] [id number] [address] [place] [id number] 16 Jul, 2016 Dorsalgia M54.9 [facility] [address] [id number] [address] [place] [id number] 14 Jul, 2016 [facility] [address] [id number] [address] [place] [id number] May, Back pain M54.9 [facility] [address] [id number] [address] [place] [id number] May, Diabetes E11.9 ; Anxiety F41 .9 ; Port catheter in place Z95.828 ; Encounter for immunization Z23 and Insulin long-term use Z79.4 [facility] [address] [id number] [address] [place] [id number] Apr, Back pain M54.9 [facility] [address] [id number] [address] [place] [phone] Apr, Back pain M54.9 [facility] [address] [id number] [address] [place] [id number] Apr, [facility] [address] [id number] [address] [place] [id number] Apr, Back pain M54.9 [facility] [address] [id number] [address] [place] [phone] Mar, COPD (chronic obstructive pu lmonary disease) J44.9 [facility] [address] [id number] [address] [place] [phone] Feb, [facility] [address] [id number] [address] [place] [id number] Jan, [facility] [address] [id number] [address] [place] [id number] Jan, [facility] [address] [id number] [address] [place] [id number] Jan, [facility] [address] [id number] [address] [place] [id number] Jan, [facility] [address] [id number] [address] [place] [id number] Dec, Diabetes E11.9 ; Hypoxia R09 .02 and Back pain M54.9 [facility] [address] [id number] [address] [place] [id number] Dec, [facility] [address] [id number] [address] [place] [phone] Nov, [facility] [address] [id number] [address] [place] [id number] 15 Oct, 2015 Anxiety F41.9 [facility] [address] [id number] [address] [place] [phone] Oct, Back pain M54.9 [facility] [address] [id number] [address] [place] [id number] September, Back pain M54.9 [facility] [address] [id number] [address] [place] [id number] September, Diabetes E11.9 [facility] [address] [id number] [address] [place] [id number] September, [facility] [address] [id number] [address] [place] [phone] September, Diabetes E11.9 ; Insulin sarai g-term use Z79.4 and Back pain M54.9 [facility] [address] [id number] [address] [place] [phone] Aug, Back pain M54.9 [facility] [address] [id number] [address] [place] [phone] Aug, Back pain M54.9 ; Anxiety F4 1.9 and Arthropathy, unspecified M12.9 [facility] [address] [id number] [address] [place] [id number] Jul, Back pain M54.9 [facility] [address] [id number] [address] [place] [phone] Jul, Anxiety F41.9 [facility] [address] [facility] [id number] [address] [place] [id number] Jul, Back pain M54.9 [facility] [address] [facility] [id number] [address] [place] [id number] 17 Jul, 2015 [facility] [address] [facility] [id number] [address] [place] [id number] Jul, [facility] [address] [facility] [id number] [address] [place] [phone] May, Back pain M54.9 ; Diabetes E 11.9 ; Insulin long-term use Z79.4 ; COPD (chronic obstructive pulmonary disease) J44.9 and Hypertension I10 [facility] [address] [facility] [id number] [address] [place] [id number] May, Chronic pain G89.29 [facility] [address] [facility] [id number] [address] [place] [phone] Apr, [facility] [address] [facility] [id number] [address] [place] [phone] Apr, [facility] [address] [facility] [id number] [address] [place] [phone] Mar, [facility] [address] [facility] [id number] [address] [place] [id number] Mar, Encounter for immunization Z 23 and Diabetes E11.9 [facility] [address] [facility] [id number] [address] [place] [id number] Feb, [facility] [address] [facility] [id number] [address] [place] [phone] Feb, [facility] [address] [facility] [id number] [address] [place] [phone] 23 Jan, 2015 [facility] [address] [facility] [id number] [address] [place] [phone] 16 Jan, 2015 [facility] [address] [facility] [id number] [address] [place] [id number] Dec, [facility] [address] [facility] [id number] [address] [place] [phone] Dec, [facility] [address] [id number] [address] [place] [id number] Dec, Unspecified arthropathy, sit e unspecified 716.90 and Diabetes mellitus type 2, uncontrolled 250.02 [facility] [address] [id number] [address] [place] [address], [place] [address] Dec, [facility] [address] [id number] [address] [place] [phone] Nov, [facility] [address] [id number] [address] [place] [address], [place] [id number] Oct, [facility] [address] [id number] [address] [place] [address], [place] [address] September, [facility] [address] [id number] [address] [place] [address], [place] [id number] September, [facility] [address] [id number] [address] [place] [address], [place] [id number] September, [facility] [address] [id number] [address] [place] [address], [place] [address] September, [facility] [address] [id number] [address] [place] [address], [place] [address] Aug, [facility] [address] [id number] [address] [place] [address], [place] [address] Aug, [facility] [address] [id number] [address] [place] [address], [place] [address] Jul, [facility] [address] [id number] [address] [place] [phone] 18 Jul, 2014 [facility] [address] [id number] [address] [place] [address], [place] [id number] 16 Jul, 2014 [facility] [address] [id number] [address] [place] [address], [place] [address] 16 Jul, 2014 [facility] [address] [id number] [address] [place] [phone] 16 Jul, 2014 [facility] [address] [id number] [address] [place] [address], [place] [id number] 16 Jul, 2014 [facility] [address] [id number] [address] [place] [address], [place] [id number] 16 Jul, 2014 [facility] [address] [id number] [address] [place] [address], [place] [id number] 16 Jul, 2014 [facility] [address] [id number] [address] [place] [address], [place] [address] 16 Jul, 2014 [facility] [address] [id number] [address] [place] [address], [place] [address] 13 Jul, 2014 [facility] [address] [id number] [address] [place] [address], [place] [address] 13 Jul, 2014 [facility] [address] [id number] [address] [place] [address], [place] [id number] 09 Jul, 2014 [facility] [address] [id number] [address] [place] [address], [place] [address] 09 Jul, 2014 [facility] [address] [id number] [address] [place] [address], [place] [address] 17 Jul, 2014 [facility] [address] [id number] [address] [place] [address], [place] [id number] 17 Jul, 2014 [facility] [address] [id number] [address] [place] [address], [place] [address] 16 Jul, 2014 [facility] [address] [id number] [address] [place] [address], [place] [address] 16 Jul, 2014 [facility] [address] [id number] [address] [place] [address], [place] [address] 16 Jul, 2014 [facility] [address] [id number] [address] [place] [address], [place] [id number] 16 Jul, 2014 [facility] [address] [id number] [address] [place] [address], [place] [address] 16 Jul, 2014 [facility] [address] [id number] [address] [place] [address], [place] [address] 16 Jul, 2014 [facility] [address] [id number] [address] [place] [address], [place] [address] Jul, 2014 [facility] [address] [id number] [address] [place] [address], [place] [id number] 16 Jul, 2014 [facility] [address] [id number] [address] [place] [address], [place] [address] Jul, 2014 [facility] [address] [id number] [address] [place] [address], [place] [address] Jul, 2014 [facility] [address] [id number] [address] [place] [address], [place] [address] Jul, 2014 [facility] [address] [id number] [address] [place] [address], [place] [address] Jul, 2014 [facility] [address] [id number] [address] [place] [address], [place] [address] Jul, 2014 [facility] [address] [id number] [address] [place] [address], [place] [address] Jul, [facility] [address] [id number] [address] [place] [address], [place] [address] May, [facility] [address] [id number] [address] [place] [address], [place] [address] May, [facility] [address] [id number] [address] [place] [address], [place] [address] May, [facility] [address] [id number] [address] [place] [address], [place] [address] May, [facility] [address] [id number] [address] [place] [address], [place] [address] May, [facility] [address] [id number] [address] [place] [address], [place] [address] May, [facility] [address] [id number] [address] [place] [address], [place] [address] May, [facility] [address] [id number] [address] [place] [address], [place] [address] May, [facility] [address] [id number] [address] [place] [address], [place] [address] May, [facility] [address] [id number] [address] [place] [address], [place] [address] May, [facility] [address] [id number] [address] [place] [address], [place] [address] Apr, [facility] [address] [id number] [address] [place] [address], [place] [address] Apr, [facility] [address] [id number] [address] [place] [address], [place] [address] Apr, [facility] [address] [id number] [address] [place] [address], [place] [address] Apr, [facility] [address] [id number] [address] [place] [address], [place] [address] Apr, [facility] [address] [id number] [address] [place] [address], [place] [address] Apr, [facility] [address] [id number] [address] [place] [address], [place] [address] Mar, [facility] [address] [id number] [address] [place] [address], [place] [address] Mar, [facility] [address] [id number] [address] [place] [address], [place] [address] Mar, [facility] [address] [id number] [address] [place] [address], [place] [address] Mar, [facility] [address] [id number] [address] [place] [address], [place] [address] Mar, [facility] [address] [id number] [address] [place] [address], [place] [address] Mar, [facility] [address] [id number] [address] [place] [address], [place] [address] Mar, [facility] [address] [id number] [address] [place] [address], [place] [address] 17 Mar, 2014 [facility] [address] [id number] [address] [place] [address], [place] [address] Mar, [facility] [address] [id number] [address] [place] [address], [place] [address] Mar, [facility] [address] [id number] [address] [place] [address], [place] [address] Mar, [facility] [address] [id number] [address] [place] [address], [place] [address] Feb, [facility] [address] [id number] [address] [place] [address], [place] [address] Feb, [facility] [address] [id number] [address] [place] [address], [place] [address] Feb, [facility] [address] [id number] [address] [place] [address], [place] [address] Feb, [facility] [address] [id number] [address] [place] [address], [place] [address] Feb, [facility] [address] [id number] [address] [place] [address], [place] [address] Feb, [facility] [address] [id number] [address] [place] [address], [place] [address] Feb, [facility] [address] [id number] [address] [place] [address], [place] [address] Feb, [facility] [address] [id number] [address] [place] [address], [place] [address] Feb, [facility] [address] [id number] [address] [place] [address], [place] [address] Feb, [facility] [address] [id number] [address] [place] [address], [place] [address] Jan, [facility] [address] [id number] [address] [place] [address], [place] [address] 22 Jan, 2013 [facility] [address] [id number] [address] [place] [address], [place] [address] 16 Jan, 2013 [facility] [address] [id number] [address] [place] [address], [place] [address] 16 Jan, 2013 [facility] [address] [id number] [address] [place] [address], [place] [address] 12 Jan, 2014 [facility] [address] [id number] [address] [place] [address], [place] [address] Jan, [facility] [address] [id number] [address] [place] [address], [place] [address] Jan, [facility] [address] [id number] [address] [place] [address], [place] [address] Dec, [facility] [address] [id number] [address] [place] [address], [place] [address] Dec, [facility] [address] [id number] [address] [place] [address], [place] [address] Dec, [facility] [address] [id number] [address] [place] [address], [place] [address] Dec, [facility] [address] [id number] [address] [place] [address], [place] [address] Dec, [facility] [address] [id number] [address] [place] [address], [place] [address] Dec, [facility] [address] [id number] [address] [place] [address], [place] [address] Dec, [facility] [address] [id number] [address] [place] [address], [place] [address] Dec, [facility] [address] [id number] [address] [place] [address], [place] [id number] Oct, [facility] [address] [id number] [address] [place] [id number] Oct, [facility] [address] [id number] [address] [place] [address], [place] [address] September, [facility] [address] [id number] [address] [place] [address], [place] [address] September, [facility] [address] [id number] [address] [place] [address], [place] [address] September, [facility] [address] [id number] [address] [place] [address], [place] [id number] September, [facility] [address] [id number] [address] [place] [address], [place] [address] September, [facility] [address] [id number] [address] [place] [address], [place] [address] September, [facility] [address] [id number] [address] [place] [address], [place] [address] September, [facility] [address] [id number] [address] [place] [address], [place] [address] Aug, [facility] [address] [id number] [address] [place] [address], [place] [address] Aug, [facility] [address] [id number] [address] [place] [address], [place] [address] Jul, [facility] [address] [id number] [address] [place] [address], [place] [id number] Jul, [facility] [address] [id number] [address] [place] [address], [place] [address] Jul, [facility] [address] [id number] [address] [place] [address], [place] [address] Jul, [facility] [address] [id number] [address] [place] [address], [place] [address] Jul, [facility] [address] [id number] [address] [place] [address], [place] [address] Jul, [facility] [address] [id number] [address] [place] [address], [place] [id number] Jul, [facility] [address] [id number] [address] [place] [address], [place] [address] Jul, [facility] [address] [id number] [address] [place] [address], [place] [address] May, [facility] [address] [id number] [address] [place] [address], [place] [address] May, [facility] [address] [id number] [address] [place] [address], [place] [address] May, [facility] [address] [id number] [address] [place] [address], [place] [id number] May, [facility] [address] [id number] [address] [place] [address], [place] [address] Apr, [facility] [address] [id number] [address] [place] [address], [place] [address] Mar, [facility] [address] [id number] [address] [place] [address], [place] [address] Mar, [facility] [address] [id number] [address] [place] [address], [place] [address] Mar, [facility] [address] [id number] [address] [place] [address], [place] [address] Mar, [facility] [address] [id number] [address] [place] [address], [place] [address] Mar, [facility] [address] [id number] [address] [place] [address], [place] [address] Mar, [facility] [address] [id number] [address] [place] [address], [place] [address] Mar, [facility] [address] [id number] [address] [place] [address], [place] [address] Mar, [facility] [address] [id number] [address] [place] [address] [address] Mar, [facility] [address] [id number] [address] [place] [address], [place] [address] Mar, [facility] [address] [id number] [address] [place] [address], [place] [address] Mar, [facility] [address] [id number] [address] [place] [address], [place] [address] Mar, [facility] [address] [id number] [address] [place] [address], [place] [address] Feb, [facility] [address] [id number] [address] [place] [address], [place] [address] Feb, [facility] [address] [id number] [address] [place] [address], [place] [address] Feb, [facility] [address] [id number] [address] [place] [address], [place] [address] Feb, [facility] [address] [id number] [address] [place] [address], [place] [address] Feb, [facility] [address] [id number] [address] [place] [address], [place] [address] Jan, [facility] [address] [id number] [address] [place] [address], [place] [address] Dec, [facility] [address] [id number] [address] [place] [address], [place] [address] Dec, [facility] [address] [id number] [address] [place] [address], [place] [address] Dec, [facility] [address] [id number] [address] [place] [address], [place] [address] Nov, [facility] [address] [id number] [address] [place] [address], [place] [address] Nov, [facility] [address] [id number] [address] [place] [address], [place] [address] Nov, [facility] [address] [id number] [facility] [place] [address] 27 Oct, 2012 [facility] [address] [id number] [address] [place] [address], [place] [address] Oct, [facility] [address] [id number] [address] [place] [address], [place] [address] Oct, [facility] [address] [id number] [address] [place] [address], [place] [address] September, [facility] [address] [id number] [address] [place] [address], [place] [address] September, [facility] [address] [id number] [address] [place] [address], [place] [address] September, [facility] [address] [id number] [address] [place] [address], [place] [address] September, [facility] [address] [id number] [address] [place] [address], [place] [address] September, [facility] [address] [id number] [address] [place] [address], [place] [address] Aug, [facility] [address] [id number] [address] [place] [address], [place] [address] Aug, [facility] [address] [id number] [address] [place] [address], [place] [address] Aug, [facility] [address] [id number] [address] [place] [address], [place] [address] Jul, [facility] [address] [id number] [address] [place] [address], [place] [address] Jul, [facility] [address] [id number] [address] [place] [address], [place] [address] Jul, [facility] [address] [id number] [address] [place] [address], [place] [address] Jul, [facility] [address] [id number] [address] [place] [address], [place] [address] Jul, [facility] [address] [id number] [address] [place] [address], [place] [address] Jul, [facility] [address] [id number] [address] [place] [address], [place] [address] Jul, [facility] [address] [id number] [address] [place] [address], [place] [address] May, [facility] [address] [id number] [address] [place] [address], [place] [address] May, [facility] [address] [id number] [address] [place] [address], [place] [address] May, [facility] [address] [id number] [address] [place] [address], [place] [address] Apr, [facility] [address] [id number] [address] [place] [address], [place] [address] Apr, [facility] [address] [id number] [address] [place] [address], [place] [address] Apr, [facility] [address] [id number] [address] [place] [address], [place] [address] Apr, [facility] [address] [id number] [address] [place] [address], [place] [address] Apr, [facility] [address] [id number] [address] [place] [address], [place] [address] Mar, [facility] [address] [id number] [address] [place] [address], [place] [address] 29 Mar, 2012 [facility] [address] [id number] [address] [place] [address], [place] [address] Mar, [facility] [address] [id number] [address] [place] [address], [place] [address] 15 Mar, 2012 [facility] [address] [id number] [address] [place] [address], [place] [address] Feb, [facility] [address] [id number] [address] [place] [address], [place] [address] Feb, [facility] [address] [id number] [address] [place] [address], [place] [address] Feb, [facility] [address] [id number] [address] [place] [address], [place] [address] Feb, [facility] [address] [id number] [address] [place] [address], [place] [address] Feb, [facility] [address] [id number] [address] [place] [address], [place] [address] Jan, [facility] [address] [id number] [address] [place] [address], [place] [address] Dec, [facility] [address] [id number] [address] [place] [address], [place] [address] Dec, [facility] [address] [id number] [address] [place] [address], [place] [address] Dec, [facility] [address] [id number] [address] [place] [address], [place] [address] Nov, [facility] [address] [id number] [address] [place] [address], [place] [address] Nov, [facility] [address] [id number] [address] [place] [address], [place] [address] Nov, [facility] [address] [id number] [address] [place] [address], [place] [address] Oct, [facility] [address] [id number] [address] [place] [address], [place] [address] Oct, [facility] [address] [id number] [address] [place] [address], [place] [address] Oct, [facility] [address] [id number] [address] [place] [address], [place] [address] Oct, [facility] [address] [id number] [address] [place] [address], [place] [address] September, [facility] [address] [id number] [address] [place] [address], [place] [address] September, [facility] [address] [id number] [address] [place] [address], [place] [address] Aug, [facility] [address] [id number] [address] [place] [address], [place] [address] Aug, [facility] [address] [id number] [address] [place] [address], [place] [address] Aug, [facility] [address] [id number] [address] [place] [address], [place] [address] Aug, [facility] [address] [id number] [address] [place] [address], [place] [address] Aug, [facility] [address] [id number] [address] [place] [address], [place] [address] Aug, [facility] [address] [id number] [address] [place] [address], [place] [address] Aug, [facility] [address] [id number] [address] [place] [address], [place] [address] Jul, [facility] [address] [id number] [address] [place] [address], [place] [address] Jul, [facility] [address] [id number] [address] [place] [address], [place] [address] Jul, [facility] [address] [id number] [address] [place] [address], [place] [address] May, [facility] [address] [id number] [address] [place] [address], [place] [address] May, [facility] [address] [id number] [address] [place] [address], [place] [address] May, [facility] [address] [id number] [address] [place] [address], [place] [address] Apr, [facility] [address] [id number] [address] [place] [address] Apr, [facility] [address] [id number] [address] [place] [address] Mar, [facility] [address] [id number] [address] [place] [address] Mar, [facility] [address] [id number] [address] [place] [address] Mar, [facility] [address] [id number] [address] [place] [address] Mar, [facility] [address] [id number] [address] [place] [address] Mar, [facility] [address] [id number] [address] [place] [address] Mar, [facility] [address] [id number] [address] [place] [address] Feb, [facility] [address] [id number] [address] [place] [address] Feb, [facility] [address] [id number] [address] [place] [id number] Feb, IMMUNIZATIONS No Known Immunizations SOCIAL HISTORY [...] foot infections x 3 2015 Hospitalization History [facility] - right big t oe removed 2018
--- OUTSIDE RECORDS SUMMARY | 2020-01-03 08:10 | XMS REPORT ---
Author Author Tra SILVERIO Organization [facility] Address [address] [place] [address] Care Team Providers Care Prick Stitcher Name Role Phone FERNY SILVERIO Unavailable PROBLEMS Type Condition ICD9-CM Code [id number] Code Onset Dates Condition S tatus SNOMED Code Problem Hypertension I10 Active 3548791 3 Problem Hypoxia R09.02 Active 387636735 Problem COPD (chronic obstructive pulmonary disease) J44.9 Active 42933471 Problem Lumbar radiculopathy, chronic M54.16 Active 522609403 Problem longterm current use of insulin Z79.4 Active 306388585 Problem Recurrent major depressive disorder, in full remission F33.42 Active 182367745 Problem Hyperlipidemia, unspecified E78.5 Ac tive 36898202 Problem PAD (peripheral artery disease) I73.9 Active 727125743 Problem Type 2 diabetes mellitus with other specified complication E11.69 Active 277864447201 Problem Anxiety F41.9 Active 15160532 Problem Type 2 diabetes mellitus wit h diabetic peripheral angiopathy without gangrene E11.51 Active 268463903 Problem ED (erectile dysfunction) of organic origin N52.9 Active 280034515 Problem Arthritis M19.90 Active 2038494 Problem Morbid (severe) obesity due to excess calories E66 .01 Active 712096140 ALLERGIES No Information ENCOUNTERS Encounter Location Date Diagnosis [facility] [address] [facility] [id number] [address] [place] [address] 15 Nov, 2019 Back pain M54.9 [facility] [address] [facility] [id number] [address] [place] [address] 02 Nov, [address] [id number] [address] Oct, Anxiety F41.[address] [id number], [place] [address] Oct, [facility] [address] [facility] [id number] [address] [place] [address] 17 Oct, 2019 [facility] [address] [facility] [id number] [address] [place] [address] 15 Oct, 2019 Back pain M54.9 and Lumbar r adiculopathy, chronic M54.16 [place] [address] [facility] [id number] [address] [place] [address] 04 Oct, 2019 Lumbar radiculopathy, chroni c M54.16 [place] [address] [facility] [id number] [address] [place] [address] 03 Oct, 2019 Anxiety F41.[address] [id number], [place] [address] Oct, [place] [address] [facility] [id number] [address] [place] [address] September, Back pain M54.9 and Lumbar r adiculopathy, chronic M54.[address] [id number], [place] [address] September, Anxiety F41.9 [facility] [place] [address] [id number] [place] [address] Aug, [place] [address] [facility] [id number] [address] [place] [address] 24 Aug, 2019 Back pain M54.9 and Lumbar r adiculopathy, chronic M54.16 [place] [address] [facility] [id number] [address] [place] [address] 10 Aug, 2019 Anxiety F41.9 ; Back pain M5 4.9 and Lumbar radiculopathy, chronic M54.16 [place] [address] [facility] [id number] [address] [place] [address] 09 Aug, 2019 Lumbar radiculopathy, chroni c M54.16 ; Anxiety F41.9 ; Type 2 diabetes mellitus with other specified complication E11.69 and Hypertension I10 [place] [address] [id number] [address] [place] [address] 30 Jul, 2019 [facility] [address] [id number] [address] [place] [address] 27 Jul, 2019 Lumbar radiculopathy, chroni c M54.16 ; Back pain M54.9 and Anxiety F41.9 [facility] [address] [id number] [address] [place] [address] 23 Jul, 2019 [facility] [address] [id number] [address] [place] [address] 13 Jul, 2019 Anxiety F41.9 [place] [address] [id number] [address] [place] [address] 12 Jul, 2019 Anxiety F41.9 [place] [address] [id number] [address] [place] [address] Jul, Back pain M54.9 [place] [address] [id number] [address] [place] [address] 02 Jul, 2019 Back pain M54.9 [place] [address] [id number] [address] [place] [address] Jul, Lumbar radiculopathy, chroni c M54.16 [place] [address] [id number] [address] [place] [address] Jul, Back pain M54.9 [place] [address] [facility] [id number] [address] [place] [address] 07 Jul, 2019 [facility]counter [facility] Z00.00 ; COPD (chronic [...] diabetes mellitus with other specified complication E11.69 [place] [address] [id number] [address] [place] [address] Jul, Back pain M54.9 [facility] [address] [id number] [address] [place] [address] Jul, Anxiety F41.9 [facility] [address] [id number] [address] [place] [address] May, [facility] [address] [id number] [address] [place] [address] May, Lumbar radiculopathy, chroni c M54.16 [facility] [address] [id number] [address] [place] [address] May, Back pain M54.9 [facility] [address] [id number] [address] [place] [address] May, [facility] [address] [id number] [address] [place] [address] May, Back pain M54.9 and Anxiety F41.9 [facility] [address] [id number] [address] [place] [address] May, [facility] [address] [id number] [address] [place] [address] May, Type 2 diabetes mellitus wit h diabetic peripheral angiopathy without gangrene E11.51 ; Arthritis M19.90 ; ED (erectile dysfunction) of organic origin N52.9 ; Morbid (severe) obesity due to excess calories E66.01 and Lumbar radiculopathy, chronic M54.16 [facility] [address] [id number] [address] [place] [address] May, Diabetes E11.9 [facility] [address] [id number] [address] [place] [address] Apr, [facility] [address] [id number] [address] [place] [address] Apr, Back pain M54.9 [facility] [address] [id number] [address] [place] [phone] Apr, [facility] [address] [id number] [address] [place] [address] Apr, Anxiety F41.9 [facility] [address] [id number] [address] [place] [address] Apr, Back pain M54.9 and Lumbar r adiculopathy, chronic M54.16 [facility] [address] [id number] [address] [place] [address] Apr, Back pain M54.9 ; Anxiety F4 1.9 and Lumbar radiculopathy, chronic M54.16 [facility] [address] [id number] [address] [place] [address] Mar, [facility] [address] [id number] [address] [place] [address] Mar, [facility] [address] [id number] [address] [place] [address] Mar, Back pain M54.9 [facility] [address] [id number] [address] [place] [address] Mar, [facility] [address] [id number] [address] [place] [address] Feb, Type 2 diabetes mellitus wit h diabetic peripheral angiopathy without gangrene E11.51 ; Lumbar radiculopathy, chronic M54.16 ; ED (erectile dysfunction) of organic origin N52.9 ; Encounter for immunization Z23 ; COPD (chronic obstructive pulmonary disease) J44.9 and Anxiety F41.9 [facility] [address] [id number] [address] [place] [address] Feb, Back pain M54.9 [facility] [address] [id number] [address] [place] [address] Feb, [facility] [address] [id number] [address] [place] [address] Feb, [facility] [address] [id number] [address] [place] [address] Feb, [facility] [address] [id number] [address] [place] [address] Feb, Back pain M54.9 [facility] [address] [id number] [address] [place] [address] Feb, [facility] [address] [id number] [address] [place] [phone] Jan, Anxiety F41.9 [facility] [address] [id number] [address] [place] [address] Jan, Anxiety F41.9 [facility] [address] [id number] [address] [place] [address] Jan, [facility] [address] [id number] [address] [place] [address] Jan, [facility] [address] [id number] [address] [place] [address] Jan, Back pain M54.9 [facility] [address] [id number] [address] [place] [address] Jan, [facility] [address] [id number] [address] [place] [address] Dec, Acute non-recurrent frontal sinusitis J01.10 [facility] [address] [id number] [address] [place] [address] Dec, Acute non-recurrent frontal sinusitis J01.10 [facility] [address] [id number] [address] [place] [address] Dec, Type 2 diabetes mellitus wit h diabetic peripheral angiopathy without gangrene E11.51 ; Lumbar radiculopathy, chronic M54.16 ; Recurrent major depressive disorder, in full remission F33.42 and Anxiety F41.9 [facility] [address] [id number] [address] [place] [address] Dec, [facility] [address] [id number] [address] [place] [phone] Nov, Anxiety F41.9 [facility] [address] [id number] [address] [place] [address] Nov, [facility] [address] [id number] [address] [place] [address] Nov, Back pain M54.9 [facility] [address] [id number] [address] [place] [address] Nov, [facility] [address] [id number] [address] [place] [address] Nov, Back pain M54.9 [facility] [address] [id number] [address] [place] [address] Nov, Anxiety F41.9 [facility] [address] [id number] [address] [place] [address] Nov, [facility] [address] [id number] [address] [place] [address] Oct, Back pain M54.9 [facility] [address] [id number] [address] [place] [address] Oct, [facility] [address] [id number] [address] [place] [address] Oct, [facility] [address] [id number] [address] [place] [address] Oct, [facility] [address] [id number] [address] [place] [address] September, Back pain M54.9 [facility] [address] [id number] [address] [place] [address] September, [facility] [address] [id number] [address] [place] [address] September, [facility] [address] [id number] [address] [place] [address] September, [facility] [address] [id number] [address] [place] [address] Aug, Back pain M54.9 [facility] [address] [id number] [address] [place] [address] Aug, Anxiety F41.9 [facility] [address] [id number] [address] [place] [address] Aug, [facility] [address] [id number] [address] [place] [address] Aug, Pressure ulcer of other site , stage 3 L89.893 and COPD (chronic obstructive pulmonary disease) J44.9 [facility] [address] [facility] [id number] [address] [place] [address] Aug, History of smoking Z87.891 [facility] [address] [id number] [address] [place] [address] Jul, Type 2 diabetes mellitus wit h diabetic peripheral angiopathy without gangrene E11.51 [facility] [address] [id number] [address] [place] [address] Jul, Back pain M54.9 [facility] [address] [id number] [address] [place] [address] Jul, Anxiety F41.9 [facility] [address] [id number] [address] [place] [address] Jul, [facility] [address] [id number] [address] [place] [address] Jul, Back pain M54.9 [facility] [address] [id number] [address] [place] [address] Jul, Back pain M54.9 [facility] [address] [facility] [id number] [address] [place] [address] Jul, Lumbar radiculopathy, chroni c M54.16 ; Hypertension I10 and Type 2 diabetes mellitus with diabetic peripheral angiopathy without gangrene E11.51 [facility] [address] [id number] [address] [place] [address] Jul, Back pain M54.9 [facility] [address] [id number] [address] [place] [address] Jul, Back pain M54.9 and Anxiety F41.9 [place] [address] [id number] [address] [place] [address] Jul, [facility] [address] [facility] [id number] [address] [place] [address] May, Back pain M54.9 and Anxiety F41.9 [place] [address] [facility] [id number] [address] [place] [address] May, [place] [address] [facility] [id number] [address] [place] [address] Apr, Radiculopathy of lumbar rhiannon on M54.16 ; Back pain M54.9 and Anxiety F41.9 [place] [address] [facility] [id number] [address] [place] [address] Apr, Diabetes E11.9 ; Muscle spas m M62.838 and Lumbar radiculopathy, chronic M54.16 [place] [address] [facility] [id number] [address] [place] [address] Apr, [facility] [address] [id number] [address] [place] [address] Apr, [facility] [address] [facility] [id number] [address] [place] [address] Mar, Back pain M54.9 and Anxiety F41.9 [facility] [address] [facility] [id number] [address] [place] [phone] Mar, [place] [address] [id number] [address] [place] [address] Mar, [facility] [address] [id number] [address] [place] [address] Mar, [facility] [address] [id number] [address] [place] [address] Mar, Encounter for immunization Z 23 [facility] [address] [id number] [address] [place] [address] Feb, Back pain M54.9 and Anxiety F41.9 [facility] [address] [id number] [address] [place] [address] Feb, Back pain M54.9 and Anxiety F41.9 [facility] [address] [id number] [address] [place] [address] Jan, Back pain M54.9 and Anxiety F41.9 [facility] [address] [id number] [address] [place] [address] Jan, [facility] [address] [id number] [address] [place] [address] Dec, [facility] [address] [id number] [address] [place] [address] Dec, Back pain M54.9 and Anxiety F41.9 [facility] [address] [id number] [address] [place] [address] Dec, Diabetes E11.9 ; Type 2 diab etes mellitus with diabetic peripheral angiopathy without gangrene E11.51 ; Lumbar radiculopathy, chronic M54.16 ; COPD (chronic obstructive pulmonary disease) J44.9 and Anxiety F41.9 [facility] [address] [id number] [address] [place] [address] Dec, Back pain M54.9 and Anxiety F41.9 [facility] [address] [facility] [id number] [address] [place] [address] Nov, Back pain M54.9 and Anxiety F41.9 [facility] [address] [id number] [address] [place] [address] Oct, [facility] [address] [id number] [address] [place] [address] Oct, Back pain M54.9 and Anxiety F41.9 [facility] [address] [id number] [address] [place] [address] September, Anxiety F41.9 and Back pain M54.9 [place] [address] [id number] [address] [place] [address] September, Diabetes E11.9 ; Hypertensio n I10 ; COPD (chronic obstructive pulmonary disease) J44.9 and Lumbar radiculopathy, chronic M54.16 [place] [address] [id number] [address] [place] [address] September, Anxiety F41.9 [place] [address] [id number] [address] [place] [address] Aug, [facility] [address] [id number] [address] [place] [address] Aug, [facility] [address] [id number] [address] [place] [address] Aug, Anxiety F41.9 and Back pain M54.9 [place] [address] [id number] [address] [place] [address] Aug, Medicare annual wellness vis it, initial [...] and longterm current use of insulin Z79.4 [place] [address] [id number] [address] [place] [address] Jul, Back pain M54.9 [facility] [address] [id number] [address] [place] [address] Jul, [facility] [address] [id number] [address] [place] [address] Jul, Anxiety F41.9 and Back pain M54.9 [facility] [address] [id number] [address] [place] [address] Jul, Diabetes E11.9 [facility] [address] [id number] [address] [place] [address] May, [facility] [address] [id number] [address] [place] [address] May, Diabetes E11.9 ; Anxiety F41 .9 ; Back pain M54.9 and COPD (chronic obstructive pulmonary disease) J44.9 [facility] [address] [id number] [address] [place] [address] May, Back pain M54.9 [facility] [address] [id number] [address] [place] [address] May, [facility] [address] [id number] [address] [place] [address] Apr, Back pain M54.9 [facility] [address] [id number] [address] [place] [address] Mar, Back pain M54.9 [facility] [address] [id number] [address] [place] [address] Mar, [facility] [address] [id number] [address] [place] [phone] 16 Mar, 2017 [facility] [address] [id number] [address] [place] [address] 14 Mar, 2017 Radiculopathy of lumbar rhiannon on M54.16 [facility] [address] [id number] [address] [place] [address] 13 Mar, 2017 [facility] [address] [facility] [id number] [address] [place] [address] 07 Mar, 2017 Encounter for immunization Z 23 and Lumbar radiculopathy, chronic M54.16 [facility] [address] [id number] [address] [place] [address] Mar, Back pain M54.9 and Anxiety F41.9 [facility] [address] [id number] [address] [place] [phone] 10 Feb, 2017 Acute bilateral low back boy n with left-sided sciatica M54.42 and Acute bilateral low back pain with right-sided sciatica M54.41 [facility] [address] [facility] [id number] [address] [place] [id number] Feb, [facility] [address] [facility] [id number] [address] [place] [id number] Feb, Back pain M54.9 [facility] [address] [id number] [address] [place] [id number] 05 Jan, 2017 Back pain M54.9 and Anxiety F41.9 [facility] [address] [facility] [id number] [address] [place] [id number] 05 Jan, 2017 Diabetes E11.9 [facility] [address] [facility] [id number] [address] [place] [id number] Dec, Diabetes E11.9 ; Back pain M 54.9 ; Anxiety F41.9 and Insulin long- term use Z79.4 [facility] [address] [id number] [address] [place] [id number] Dec, Anxiety F41.9 [facility] [address] [facility] [id number] [address] [place] [phone] Dec, Back pain M54.9 [facility] [address] [facility] [id number] [address] [place] [phone] Nov, Back pain M54.9 [facility] [address] [id number] [address] [place] [phone] 12 Oct, 2016 Back pain M54.9 and Anxiety F41.9 [facility] [address] [id number] [address] [place] [id number] September, Back pain M54.9 [facility] [address] [id number] [address] [place] [id number] September, Back pain M54.9 and Anxiety F41.9 [facility] [address] [id number] [address] [place] [id number] Aug, Diabetes E11.9 ; Anxiety F41 .9 ; Back pain M54.9 and PAD (peripheral artery disease) I73.9 [facility] [address] [id number] [address] [place] [phone] Aug, Anxiety F41.9 [facility] [address] [id number] [address] [place] [phone] Aug, Back pain M54.9 [facility] [address] [id number] [address] [place] [id number] 23 Jul, 2016 Back pain M54.9 [facility] [address] [address] [id number] [address] [place] [address] 13 Jul, 2016 Back pain M54.9 [facility] [address] [id number] [address] [place] [address] 23 Jul, 2016 Back pain M54.9 [facility] [address] [id number] [address] [place] [address] 16 Jul, 2016 Dorsalgia M54.9 [facility] [address] [id number] [address] [place] [address] 14 Jul, 2016 [facility] [address] [id number] [address] [place] [address] May, Back pain M54.9 [facility] [address] [id number] [address] [place] [address] May, Diabetes E11.9 ; Anxiety F41 .9 ; Port catheter in place Z95.828 ; Encounter for immunization Z23 and Insulin long-term use Z79.4 [facility] [address] [id number] [address] [place] [address] Apr, Back pain M54.9 [facility] [address] [id number] [address] [place] [address] Apr, Back pain M54.9 [facility] [address] [id number] [address] [place] [address] Apr, [facility] [address] [id number] [address] [place] [address] Apr, Back pain M54.9 [facility] [address] [id number] [address] [place] [address] Mar, COPD (chronic obstructive pu lmonary disease) J44.9 [facility] [address] [id number] [address] [place] [address] Feb, [facility] [address] [id number] [address] [place] [address] Jan, [facility] [address] [id number] [address] [place] [address] Jan, [facility] [address] [id number] [address] [place] [address] Jan, [facility] [address] [id number] [address] [place] [address] Jan, [facility] [address] [id number] [address] [place] [address] Dec, Diabetes E11.9 ; Hypoxia R09 .02 and Back pain M54.9 [facility] [address] [id number] [address] [place] [address] Dec, [facility] [address] [id number] [address] [place] [address] 15 Nov, 2015 [facility] [address] [id number] [address] [place] [address] Oct, Anxiety F41.9 [facility] [address] [id number] [address] [place] [address] Oct, Back pain M54.9 [facility] [address] [id number] [address] [place] [address] September, Back pain M54.9 [facility] [address] [id number] [address] [place] [address] September, Diabetes E11.9 [facility] [address] [id number] [address] [place] [address] September, [facility] [address] [facility] [id number] [address] [place] [address] September, Diabetes E11.9 ; Insulin sarai g-term use Z79.4 and Back pain M54.9 [facility] [address] [id number] [address] [place] [address] Aug, Back pain M54.9 [facility] [address] [id number] [address] [place] [address] Aug, Back pain M54.9 ; Anxiety F4 1.9 and Arthropathy, unspecified M12.9 [facility] [address] [id number] [address] [place] [address] Jul, Back pain M54.9 [facility] [address] [id number] [address] [place] [address] Jul, Anxiety F41.9 [facility] [address] [id number] [address] [place] [address] Jul, Back pain M54.9 [facility] [address] [id number] [address] [place] [address] Jul, [facility] [address] [facility] [id number] [address] [place] [address] Jul, [facility] [address] [facility] [id number] [address] [place] [address] May, Back pain M54.9 ; Diabetes E 11.9 ; Insulin long-term use Z79.4 ; COPD (chronic obstructive pulmonary disease) J44.9 and Hypertension I10 [facility] [address] [facility] [id number] [address] [place] [address] May, Chronic pain G89.29 [facility] [address] [facility] [id number] [address] [place] [address] Apr, [facility] [address] [id number] [address] [place] [address] Apr, [facility] [address] [id number] [address] [place] [address] Mar, [facility] [address] [id number] [address] [place] [address] Mar, Encounter for immunization Z 23 and Diabetes E11.9 [facility] [address] [facility] [id number] [address] [place] [address] Feb, [facility] [address] [id number] [address] [place] [address] Feb, [facility] [address] [facility] [id number] [address] [place] [address] Jan, [facility] [address] [facility] [id number] [address] [place] [address] Jan, [facility] [address] [facility] [id number] [address] [place] [address] Dec, [facility] [address] [id number] [address] [place] [address] Dec, [facility] [address] [id number] [address] [place] [address] Dec, Unspecified arthropathy, sit e unspecified 716.90 and Diabetes mellitus type 2, uncontrolled 250.02 [facility] [address] [id number] [address] [place] [address], [place] [address] Dec, [facility] [address] [id number] [address] [place] [address] Nov, [facility] [address] [id number] [address] [place] [address] Oct, [facility] [address] [id number] [address] [place] [address] September, [facility] [address] [id number] [address] [place] [address], [place] [address] September, [facility] [address] [id number] [address] [place] [address] September, [facility] [address] [id number] [address] [place] [address] September, [facility] [address] [id number] [address] [place] [address] Aug, [facility] [address] [id number] [address] [place] [address] Aug, [facility] [address] [id number] [address] [place] [address] Jul, [facility] [address] [id number] [address] [place] [address] 18 Jul, 2014 [facility] [address] [id number] [address] [place] [address] 16 Jul, 2014 [facility] [address] [id number] [address] [place] [address] 16 Jul, 2014 [facility] [address] [id number] [address] [place] [address] 16 Jul, 2014 [facility] [address] [id number] [address] [place] [address] 16 Jul, 2014 [facility] [address] [id number] [address] [place] [address], [place] [address] 16 Jul, 2014 [facility] [address] [id number] [address] [place] [address], [place] [address] 16 Jul, 2014 [facility] [address] [id number] [address] [place] [address], [place] [address] 16 Jul, 2014 [facility] [address] [id number] [address] [place] [address], [place] [address] 13 Jul, 2014 [facility] [address] [id number] [address] [place] [address], [place] [address] 13 Jul, 2014 [facility] [address] [id number] [address] [place] [address], [place] [address] 09 Jul, 2014 [facility] [address] [id number] [address] [place] [address], [place] [address] 09 Jul, 2014 [facility] [address] [id number] [address] [place] [address], [place] [address] 17 Jul, 2014 [facility] [address] [id number] [address] [place] [address], [place] [address] 17 Jul, 2014 [facility] [address] [id number] [address] [place] [address], [place] [address] 16 Jul, 2014 [facility] [address] [id number] [address] [place] [address], [place] [address] 16 Jul, 2014 [facility] [address] [id number] [address] [place] [address] 16 Jul, 2014 [facility] [address] [id number] [address] [place] [address], [place] [address] 16 Jul, 2014 [facility] [address] [id number] [address] [place] [address], [place] [address] 16 Jul, 2014 [facility] [address] [id number] [address] [place] [address] 16 Jul, 2014 [facility] [address] [id number] [address] [place] [address] 16 Jul, 2014 [facility] [address] [id number] [address] [place] [address], [place] [address] Jul, 2014 [facility] [address] [id number] [address] [place] [address], [place] [address] Jul, 2014 [facility] [address] [id number] [address] [place] [address], [place] [address] Jul, 2014 [facility] [address] [id number] [address] [place] [address], [place] [address] Jul, 2014 [facility] [address] [id number] [address] [place] [address], [place] [address] Jul, 2014 [facility] [address] [id number] [address] [place] [address], [place] [address] Jul, 2014 [facility] [address] [id number] [address] [place] [address], [place] [address] Jul, [facility] [address] [id number] [address] [place] [address], [place] [address] May, [facility] [address] [id number] [address] [place] [address], [place] [address] May, [facility] [address] [id number] [address] [place] [address] May, [facility] [address] [id number] [address] [place] [address], [place] [address] May, [facility] [address] [id number] [address] [place] [address] May, [facility] [address] [id number] [address] [place] [address], [place] [address] May, [facility] [address] [id number] [address] [place] [address], [place] [address] May, [facility] [address] [id number] [address] [place] [address], [place] [address] May, [facility] [address] [id number] [address] [place] [address], [place] [address] May, [facility] [address] [id number] [address] [place] [address], [place] [address] May, [facility] [address] [id number] [address] [place] [address], [place] [address] Apr, [facility] [address] [id number] [address] [place] [address], [place] [address] Apr, [facility] [address] [id number] [address] [place] [address], [place] [address] Apr, [facility] [address] [id number] [address] [place] [address], [place] [address] Apr, [facility] [address] [id number] [address] [place] [address], [place] [address] Apr, [facility] [address] [id number] [address] [place] [address], [place] [address] Apr, [facility] [address] [id number] [address] [place] [address], [place] [address] Mar, [facility] [address] [id number] [address] [place] [address], [place] [address] Mar, [facility] [address] [id number] [address] [place] [address], [place] [address] Mar, [facility] [address] [id number] [address] [place] [address], [place] [address] Mar, [facility] [address] [id number] [address] [place] [address], [place] [address] Mar, [facility] [address] [id number] [address] [place] [address], [place] [address] Mar, [facility] [address] [id number] [address] [place] [address], [place] [address] Mar, [facility] [address] [id number] [address] [place] [address] Mar, [facility] [address] [id number] [address] [place] [address], [place] [address] Mar, [facility] [address] [id number] [address] [place] [address] Mar, [facility] [address] [id number] [address] [place] [address], [place] [address] Mar, [facility] [address] [id number] [address] [place] [address], [place] [address] Feb, [facility] [address] [id number] [address] [place] [address], [place] [address] Feb, [facility] [address] [id number] [address] [place] [address], [place] [address] Feb, [facility] [address] [id number] [address] [place] [address] Feb, [facility] [address] [id number] [address] [place] [address], [place] [address] Feb, [facility] [address] [id number] [address] [place] [address], [place] [address] Feb, [facility] [address] [id number] [address] [place] [address] Feb, [facility] [address] [id number] [address] [place] [address], [place] [address] Feb, [facility] [address] [id number] [address] [place] [address] Feb, [facility] [address] [id number] [address] [place] [address], [place] [address] Feb, [facility] [address] [id number] [address] [place] [address], [place] [address] Jan, [facility] [address] [id number] [address] [place] [address], [place] [address] Jan, [facility] [address] [id number] [facility] [place] [address] 16 Jan, 2013 [facility] [address] [id number] [facility] [place] [address] 16 Jan, 2013 [facility] [address] [id number] [facility] [place] [address] 12 Jan, 2013 [facility] [address] [id number] [address] [place] [address], [place] [address] 04 Jan, 2013 [facility] [address] [id number] [address] [place] [address], [place] [address] 04 Jan, 2014 [facility] [address] [id number] [address] [place] [address], [place] [address] Dec, [facility] [address] [id number] [address] [place] [address], [place] [address] Dec, [facility] [address] [id number] [address] [place] [address], [place] [address] Dec, [facility] [address] [id number] [address] [place] [address], [place] [address] Dec, [facility] [address] [id number] [address] [place] [address], [place] [address] Dec, [facility] [address] [id number] [address] [place] [address], [place] [address] Dec, [facility] [address] [id number] [address] [place] [address], [place] [address] Dec, [facility] [address] [id number] [address] [place] [address], [place] [address] Dec, [facility] [address] [id number] [address] [place] [address], [place] [address] Oct, [facility] [address] [id number] [address] [place] [address], [place] [address] Oct, [facility] [address] [id number] [address] [place] [address] [address] September, [facility] [address] [id number] [address] [place] [address], [place] [address] September, [facility] [address] [id number] [address] [place] [address], [place] [address] September, [facility] [address] [id number] [address] [place] [address], [place] [address] September, [facility] [address] [id number] [address] [place] [address], [place] [address] September, [facility] [address] [id number] [address] [place] [address], [place] [address] September, [facility] [address] [id number] [address] [place] [address], [place] [address] September, [facility] [address] [id number] [address] [place] [address], [place] [address] Aug, [facility] [address] [id number] [address] [place] [address], [place] [address] Aug, [facility] [address] [id number] [address] [place] [address], [place] [address] Jul, [facility] [address] [id number] [address] [place] [address], [place] [address] Jul, [facility] [address] [id number] [address] [place] [address], [place] [address] Jul, [facility] [address] [id number] [address] [place] [address], [place] [address] Jul, [facility] [address] [id number] [address] [place] [address], [place] [address] Jul, [facility] [address] [id number] [address] [place] [address], [place] [address] Jul, [facility] [address] [id number] [address] [place] [address], [place] [address] Jul, [facility] [address] [id number] [address] [place] [address], [place] [address] 03 Jul, 2013 [facility] [address] [id number] [address] [place] [address], [place] [address] 15 May, 2013 [facility] [address] [id number] [address] [place] [address], [place] [address] 15 May, 2013 [facility] [address] [id number] [address] [place] [address], [place] [address] May, [facility] [address] [id number] [address] [place] [address], [place] [address] 14 May, 2013 [facility] [address] [id number] [address] [place] [address], [place] [address] Apr, [facility] [address] [id number] [address] [place] [address], [place] [address] Mar, [facility] [address] [id number] [address] [place] [address], [place] [address] Mar, [facility] [address] [id number] [address] [place] [address], [place] [address] Mar, [facility] [address] [id number] [address] [place] [address], [place] [address] Mar, [facility] [address] [id number] [address] [place] [address], [place] [address] 18 Mar, 2013 [facility] [address] [id number] [address] [place] [address], [place] [address] 18 Mar, 2013 [facility] [address] [id number] [address] [place] [address], [place] [address] 18 Mar, 2013 [facility] [address] [id number] [address] [place] [address], [place] [address] 18 Mar, 2013 [facility] [address] [id number] [address] [place] [address], [place] [address] 11 Mar, 2013 [facility] [address] [id number] [address] [place] [address] [address] Mar, [facility] [address] [id number] [address] [place] [address], [place] [address] Mar, [facility] [address] [id number] [address] [place] [address], [place] [address] Mar, [facility] [address] [id number] [address] [place] [address], [place] [address] Feb, [facility] [address] [id number] [address] [place] [address], [place] [address] Feb, [facility] [address] [id number] [address] [place] [address], [place] [address] Feb, [facility] [address] [id number] [address] [place] [address], [place] [address] Feb, [facility] [address] [id number] [address] [place] [address], [place] [address] Feb, [facility] [address] [id number] [address] [place] [address], [place] [address] Jan, [facility] [address] [id number] [address] [place] [address], [place] [address] Dec, [facility] [address] [id number] [address] [place] [address], [place] [address] Dec, [facility] [address] [id number] [address] [place] [address], [place] [address] Dec, [facility] [address] [id number] [address] [place] [address], [place] [address] Nov, [facility] [address] [id number] [address] [place] [address], [place] [address] Nov, [facility] [address] [id number] [address] [place] [address], [place] [address] Nov, [facility] [address] [id number] [address] [place] [address], [place] [address] Oct, [facility] [address] [id number] [address] [place] [address], [place] [address] Oct, [facility] [address] [id number] [address] [place] [address], [place] [address] Oct, [facility] [address] [id number] [address] [place] [address], [place] [address] September, [facility] [address] [id number] [address] [place] [address], [place] [address] September, [facility] [address] [id number] [address] [place] [address], [place] [address] September, [facility] [address] [id number] [address] [place] [address], [place] [address] September, [facility] [address] [id number] [address] [place] [address], [place] [address] September, [facility] [address] [id number] [address] [place] [address], [place] [address] Aug, [facility] [address] [id number] [address] [place] [address], [place] [address] Aug, [facility] [address] [id number] [address] [place] [address], [place] [address] Aug, [facility] [address] [id number] [address] [place] [address], [place] [address] Jul, [facility] [address] [id number] [address] [place] [address], [place] [address] Jul, [facility] [address] [id number] [address] [place] [address], [place] [address] Jul, [facility] [address] [id number] [address] [place] [address], [place] [address] Jul, [facility] [address] [id number] [address] [place] [address], [place] [address] Jul, [facility] [address] [id number] [address] [place] [address], [place] [address] Jul, [facility] [address] [id number] [address] [place] [address], [place] [address] Jul, [facility] [address] [address] [id number] [address] [place] [address], [place] [address] May, [facility] [address] [id number] [address] [place] [address], [place] [address] May, [facility] [address] [id number] [address] [place] [address], [place] [address] May, [facility] [address] [id number] [address] [place] [address], [place] [address] Apr, [facility] [address] [id number] [address] [place] [address], [place] [address] Apr, [facility] [address] [id number] [address] [place] [address], [place] [address] Apr, [facility] [address] [id number] [address] [place] [address], [place] [address] Apr, [facility] [address] [id number] [address] [place] [address], [place] [address] Apr, [facility] [address] [id number] [address] [place] [address], [place] [address] Mar, [facility] [address] [id number] [address] [place] [address], [place] [address] Mar, [facility] [address] [id number] [address] [place] [id number] Mar, [facility] [address] [id number] [address] [place] [address], [place] [address] Mar, [facility] [address] [id number] [address] [place] [address], [place] [address] Feb, [facility] [address] [id number] [address] [place] [address], [place] [address] Feb, [facility] [address] [id number] [address] [place] [address] Feb, [facility] [address] [id number] [address] [place] [address], [place] [address] Feb, [facility] [address] [id number] [address] [place] [address], [place] [address] Feb, [facility] [address] [id number] [address] [place] [address], [place] [address] Jan, [facility] [address] [id number] [address] [place] [address], [place] [address] Dec, [facility] [address] [id number] [address] [place] [address], [place] [address] Dec, [facility] [address] [id number] [address] [place] [address], [place] [address] Dec, [facility] [address] [id number] [address] [place] [address], [place] [address] Nov, [facility] [address] [id number] [address] [place] [address], [place] [address] Nov, [facility] [address] [id number] [address] [place] [address], [place] [address] Nov, [facility] [address] [id number] [address] [place] [address], [place] [address] Oct, [facility] [address] [id number] [address] [place] [address], [place] [address] Oct, [facility] [address] [id number] [address] [place] [address], [place] [address] Oct, [facility] [address] [id number] [address] [place] [address], [place] [address] Oct, [facility] [address] [id number] [address] [place] [address], [place] [address] September, [facility] [address] [id number] [address] [place] [address], [place] [address] September, [facility] [address] [id number] [address] [place] [address], [place] [address] Aug, [facility] [address] [id number] [address] [place] [address], [place] [address] Aug, [facility] [address] [id number] [address] [place] [address], [place] [address] Aug, [facility] [address] [id number] [address] [place] [address], [place] [address] Aug, [facility] [address] [id number] [address] [place] [address], [place] [address] Aug, [facility] [address] [id number] [address] [place] [address], [place] [address] Aug, [facility] [address] [id number] [address] [place] [address], [place] [address] Aug, [facility] [address] [id number] [address] [place] [address], [place] [address] Jul, [facility] [address] [id number] [address] [place] [address], [place] [address] Jul, [facility] [address] [id number] [address] [place] [address], [place] [address] Jul, [facility] [address] [id number] [address] [place] [address], [place] [address] May, [facility] [address] [id number] [address] [place] [address], [place] [address] May, [facility] [address] [id number] [address] [place] [address], [place] [address] May, [facility] [address] [id number] [address] [place] [address], [place] [address] Apr, [facility] [address] [id number] [address] [place] [address], [place] [address] Apr, [facility] [address] [id number] [address] [place] [address], [place] [address] Mar, [facility] [address] [id number] [address] [place] [address] Mar, [facility] [address] [id number] [address] [place] [address] Mar, [facility] [address] [id number] [address] [place] [address] Mar, [facility] [address] [id number] [address] [place] [address] Mar, [facility] [address] [id number] [address] [place] [address] Mar, [facility] [address] [id number] [address] [place] [address] Feb, [facility] [address] [id number] [address] [place] [id number] Feb, [facility] [address] [id number] [address] [place] [id number] Feb, IMMUNIZATIONS No Known Immunizations SOCIAL HISTORY [...] foot infections x 3 2016 Hospitalization History [facility] - right big t oe removed 2018
--- OUTSIDE RECORDS SUMMARY | 2020-01-03 08:10 | XMS REPORT ---
Author Author Tra SILVERIO Organization [facility] Address [address] [place] [address] Care Team Providers Care Teacher Physically Impaired Name Role Phone FERNY SILVERIO Unavailable PROBLEMS Type Condition ICD9-CM Code JCB80-EJ Code Onset Dates Condition S tatus SNOMED Code Problem Hypertension I10 Active 7669161 3 Problem Hypoxia R09.02 Active 926028714 Problem COPD (chronic obstructive pulmonary disease) J44.9 Active 04047522 Problem Lumbar radiculopathy, chronic M54.16 Active 288944147 Problem halfway current use of insulin Z79.4 Active 960981231 Problem Recurrent major depressive disorder, in full remission F33.42 Active 567716008 Problem Hyperlipidemia, unspecified E78.5 Ac tive 26513225 Problem PAD (peripheral artery disease) I73.9 Active 108596804 Problem Type 2 diabetes mellitus with other specified complication E11.69 Active 651992895242 Problem Anxiety F41.9 Active 09368597 Problem Type 2 diabetes mellitus wit h diabetic peripheral angiopathy without gangrene E11.51 Active 442682709 Problem ED (erectile dysfunction) of organic origin N52.9 Active 683095225 Problem Arthritis M19.90 Active 7213691 Problem Morbid (severe) obesity due to excess calories E66 .01 Active 984574591 ALLERGIES No Information ENCOUNTERS Encounter Location Date Diagnosis [facility] [address] [facility] [id number] [address] [place] [phone] Nov, [address] [id number] [address] Oct, Anxiety F41.[address] [id number] [address] Oct, [facility] [address] [facility] [id number] [address] [place] [phone] Oct, [facility] [address] [id number] [address] [place] [phone] 15 Oct, 2019 Back pain M54.9 and Lumbar r adiculopathy, chronic M54.16 [facility] [address] [id number] [address] [place] [phone] 04 Oct, 2019 Lumbar radiculopathy, chroni c M54.16 [facility] [address] [id number] [address] [place] [phone] 03 Oct, 2019 Anxiety F41.[address] [id number] [address] Oct, [facility] [address] [id number] [address] [place] [phone] September, Back pain M54.9 and Lumbar r adiculopathy, chronic M54.[address] [id number] [address] September, Anxiety F41.[address] [id number] [address] Aug, [facility] [address] [facility] [id number] [address] [place] [phone] 24 Aug, 2019 Back pain M54.9 and Lumbar r adiculopathy, chronic M54.16 [facility] [address] [id number] [address] [place] [phone] 10 Aug, 2019 Anxiety F41.9 ; Back pain M5 4.9 and Lumbar radiculopathy, chronic M54.16 [facility] [address] [id number] [address] [place] [phone] 09 Aug, 2019 Lumbar radiculopathy, chroni c M54.16 ; Anxiety F41.9 ; Type 2 diabetes mellitus with other specified complication E11.69 and Hypertension I10 [facility] [address] [id number] [address] [place] [phone] Jul, [facility] [address] [id number] [address] [place] [phone] 27 Jul, 2019 Lumbar radiculopathy, chroni c M54.16 ; Back pain M54.9 and Anxiety F41.9 [facility] [address] [id number] [address] [place] [phone] 23 Jul, 2019 [facility] [address] [id number] [address] [place] [phone] 13 Jul, 2019 Anxiety F41.9 [facility] [address] [id number] [address] [place] [id number] 12 Jul, 2019 Anxiety F41.9 [facility] [address] [id number] [address] [place] [id number] 02 Jul, 2019 Back pain M54.9 [facility] [address] [id number] [address] [place] [phone] 02 Jul, 2019 Back pain M54.9 [facility] [address] [id number] [address] [place] [phone] 28 Jul, 2019 Lumbar radiculopathy, chroni c M54.16 [facility] [address] [id number] [address] [place] [phone] 28 Jul, 2019 Back pain M54.9 [facility] [address] [id number] [address] [place] [phone] 07 Jul, 2019 Encounter for Medicare annua [...] diabetes mellitus with other specified complication E11.69 [facility] [address] [id number] [address] [place] [phone] 03 Jul, 2019 Back pain M54.9 [facility] [address] [id number] [address] [place] [phone] Jul, Anxiety F41.9 [facility] [address] [id number] [address] [place] [address] May, [facility] [address] [id number] [address] [place] [id number] May, Lumbar radiculopathy, chroni c M54.16 [facility] [address] [id number] [address] [place] [phone] May, Back pain M54.9 [facility] [address] [id number] [address] [place] [address] May, [facility] [address] [facility] [id number] [address] [place] [phone] May, Back pain M54.9 and Anxiety F41.9 [facility] [address] [facility] [id number] [address] [place] [address] May, [facility] [address] [facility] [id number] [address] [place] [address] May, Type 2 diabetes mellitus wit h diabetic peripheral angiopathy without gangrene E11.51 ; Arthritis M19.90 ; ED (erectile dysfunction) of organic origin N52.9 ; Morbid (severe) obesity due to excess calories E66.01 and Lumbar radiculopathy, chronic M54.16 [facility] [address] [facility] [id number] [address] [place] [phone] May, Diabetes E11.9 [facility] [address] [id number] [address] [place] [phone] Apr, [facility] [address] [facility] [id number] [address] [place] [address] Apr, Back pain M54.9 [facility] [address] [facility] [id number] [address] [place] [phone] Apr, [facility] [address] [id number] [address] [place] [phone] 13 Apr, 2019 Anxiety F41.9 [facility] [address] [id number] [address] [place] [id number] Apr, Back pain M54.9 and Lumbar r adiculopathy, chronic M54.16 [facility] [address] [id number] [address] [place] [address] Apr, Back pain M54.9 ; Anxiety F4 1.9 and Lumbar radiculopathy, chronic M54.16 [facility] [address] [id number] [address] [place] [address] Mar, [facility] [address] [id number] [address] [place] [phone] Mar, [facility] [address] [id number] [address] [place] [phone] Mar, Back pain M54.9 [facility] [address] [id number] [address] [place] [phone] Mar, [facility] [address] [id number] [address] [place] [address] Feb, Type 2 diabetes mellitus wit h diabetic peripheral angiopathy without gangrene E11.51 ; Lumbar radiculopathy, chronic M54.16 ; ED (erectile dysfunction) of organic origin N52.9 ; Encounter for immunization Z23 ; COPD (chronic obstructive pulmonary disease) J44.9 and Anxiety F41.9 [facility] [address] [id number] [address] [place] [phone] Feb, Back pain M54.9 [facility] [address] [id number] [address] [place] [phone] Feb, [facility] [address] [id number] [address] [place] [phone] Feb, [facility] [address] [id number] [address] [place] [address] Feb, [facility] [address] [id number] [address] [place] [phone] Feb, Back pain M54.9 [facility] [address] [id number] [address] [place] [phone] Feb, [facility] [address] [id number] [address] [place] [phone] Jan, Anxiety F41.9 [facility] [address] [id number] [address] [place] [address] Jan, Anxiety F41.9 [facility] [address] [id number] [address] [place] [phone] Jan, [facility] [address] [id number] [address] [place] [phone] Jan, [facility] [address] [id number] [address] [place] [phone] Jan, Back pain M54.9 [facility] [address] [id number] [address] [place] [address] Jan, [facility] [address] [id number] [address] [place] [phone] Dec, Acute non-recurrent frontal sinusitis J01.10 [facility] [address] [id number] [address] [place] [phone] Dec, Acute non-recurrent frontal sinusitis J01.10 [facility] [address] [id number] [address] [place] [id number] Dec, Type 2 diabetes mellitus wit h diabetic peripheral angiopathy without gangrene E11.51 ; Lumbar radiculopathy, chronic M54.16 ; Recurrent major depressive disorder, in full remission F33.42 and Anxiety F41.9 [facility] [address] [id number] [address] [place] [phone] Dec, [facility] [address] [id number] [address] [place] [phone] Nov, Anxiety F41.9 [facility] [address] [id number] [address] [place] [phone] Nov, [facility] [address] [id number] [address] [place] [phone] Nov, Back pain M54.9 [facility] [address] [id number] [address] [place] [phone] Nov, [facility] [address] [id number] [address] [place] [phone] Nov, Back pain M54.9 [facility] [address] [id number] [address] [place] [address] Nov, Anxiety F41.9 [facility] [address] [id number] [address] [place] [phone] Nov, [facility] [address] [id number] [address] [place] [address] Oct, Back pain M54.9 [facility] [address] [id number] [address] [place] [phone] Oct, [facility] [address] [id number] [address] [place] [phone] Oct, [facility] [address] [id number] [address] [place] [phone] Oct, [facility] [address] [id number] [address] [place] [address] September, Back pain M54.9 [facility] [address] [id number] [address] [place] [phone] September, [facility] [address] [id number] [address] [place] [phone] September, [facility] [address] [id number] [address] [place] [address] September, [facility] [address] [id number] [address] [place] [phone] Aug, Back pain M54.9 [facility] [address] [id number] [address] [place] [id number] Aug, Anxiety F41.9 [facility] [address] [facility] [id number] [address] [place] [address] Aug, [facility] [address] [id number] [address] [place] [address] Aug, Pressure ulcer of other site , stage 3 L89.893 and COPD (chronic obstructive pulmonary disease) J44.9 [facility] [address] [id number] [address] [place] [address] Aug, History of smoking Z87.891 [facility] [address] [facility] [id number] [address] [place] [phone] Jul, Type 2 diabetes mellitus wit h diabetic peripheral angiopathy without gangrene E11.51 [facility] [address] [id number] [address] [place] [address] Jul, Back pain M54.9 [facility] [address] [id number] [address] [place] [address] Jul, Anxiety F41.9 [facility] [address] [id number] [address] [place] [address] Jul, [facility] [address] [id number] [address] [place] [phone] Jul, Back pain M54.9 [facility] [address] [id number] [address] [place] [address] Jul, Back pain M54.9 [facility] [address] [facility] [id number] [address] [place] [phone] Jul, Lumbar radiculopathy, chroni c M54.16 ; Hypertension I10 and Type 2 diabetes mellitus with diabetic peripheral angiopathy without gangrene E11.51 [facility] [address] [id number] [address] [place] [address] Jul, Back pain M54.9 [facility] [address] [id number] [address] [place] [address] Jul, Back pain M54.9 and Anxiety F41.9 [facility] [address] [id number] [address] [place] [phone] Jul, [facility] [address] [id number] [address] [place] [address] May, Back pain M54.9 and Anxiety F41.9 [facility] [address] [id number] [address] [place] [address] May, [facility] [address] [id number] [address] [place] [address] Apr, Radiculopathy of lumbar rhiannon on M54.16 ; Back pain M54.9 and Anxiety F41.9 [facility] [address] [id number] [address] [place] [address] Apr, Diabetes E11.9 ; Muscle spas m M62.838 and Lumbar radiculopathy, chronic M54.16 [facility] [address] [id number] [address] [place] [address] Apr, [facility] [address] [id number] [address] [place] [address] Apr, [facility] [address] [id number] [address] [place] [address] Mar, Back pain M54.9 and Anxiety F41.9 [facility] [address] [id number] [address] [place] [phone] Mar, [facility] [address] [id number] [address] [place] [address] Mar, [facility] [address] [id number] [address] [place] [phone] 19 Mar, 2018 [facility] [address] [id number] [address] [place] [phone] 19 Mar, 2018 Encounter for immunization Z 23 [facility] [address] [id number] [address] [place] [phone] 31 Feb, 2018 Back pain M54.9 and Anxiety F41.9 [facility] [address] [facility] [id number] [address] [place] [phone] 04 Feb, 2018 Back pain M54.9 and Anxiety F41.9 [facility] [address] [facility] [id number] [address] [place] [phone] 06 Jan, 2018 Back pain M54.9 and Anxiety F41.9 [facility] [address] [facility] [id number] [address] [place] [phone] Jan, [facility] [address] [facility] [id number] [address] [place] [address] Dec, [facility] [address] [id number] [address] [place] [phone] Dec, Back pain M54.9 and Anxiety F41.9 [facility] [address] [facility] [id number] [address] [place] [address] Dec, Diabetes E11.9 ; Type 2 diab etes mellitus with diabetic peripheral angiopathy without gangrene E11.51 ; Lumbar radiculopathy, chronic M54.16 ; COPD (chronic obstructive pulmonary disease) J44.9 and Anxiety F41.9 [facility] [address] [facility] [id number] [address] [place] [phone] Dec, Back pain M54.9 and Anxiety F41.9 [facility] [address] [facility] [id number] [address] [place] [phone] Nov, Back pain M54.9 and Anxiety F41.9 [facility] [address] [facility] [id number] [address] [place] [phone] Oct, [facility] [address] [id number] [address] [place] [phone] Oct, Back pain M54.9 and Anxiety F41.9 [facility] [address] [id number] [address] [place] [address] September, Anxiety F41.9 and Back pain M54.9 [place] [address] [id number] [address] [place] [phone] September, Diabetes E11.9 ; Hypertensio n I10 ; COPD (chronic obstructive pulmonary disease) J44.9 and Lumbar radiculopathy, chronic M54.16 [facility] [address] [id number] [address] [place] [phone] September, Anxiety F41.9 [place] [address] [id number] [address] [place] [phone] Aug, [place] [address] [id number] [address] [place] [address] Aug, [place] [address] [id number] [address] [place] [phone] Aug, Anxiety F41.9 and Back pain M54.9 [place] [address] [id number] [address] [place] [address] Aug, Medicare annual wellness vis it, initial Z00.00 ; COPD (chronic obstructive pulmonary disease) J44.9 ; PAD (peripheral artery disease) I73.9 ; Insulin long-term use Z79.4 ; Hypertension I10 ; Anxiety F41.9 ; Recurrent major depressive disorder, in full remission F33.42 ; Pressure ulcer of other site, stage 3 L89.893 ; Type 2 diabetes mellitus with diabetic peripheral angiopathy without gangrene E11.51 and oysterman current use of insulin Z79.4 [facility] [address] [id number] [address] [place] [address] Jul, Back pain M54.9 [place] [address] [id number] [address] [place] [address] Jul, [facility] [address] [id number] [address] [place] [address] Jul, Anxiety F41.9 and Back pain M54.9 [facility] [address] [id number] [address] [place] [phone] Jul, Diabetes E11.9 [facility] [address] [id number] [address] [place] [address] May, [facility] [address] [id number] [address] [place] [address] May, Diabetes E11.9 ; Anxiety F41 .9 ; Back pain M54.9 and COPD (chronic obstructive pulmonary disease) J44.9 [facility] [address] [id number] [address] [place] [address] May, Back pain M54.9 [facility] [address] [id number] [address] [place] [address] May, [facility] [address] [id number] [address] [place] [address] Apr, Back pain M54.9 [facility] [address] [id number] [address] [place] [phone] Mar, Back pain M54.9 [facility] [address] [id number] [address] [place] [phone] Mar, [facility] [address] [id number] [address] [place] [phone] 16 Mar, 2017 [facility] [address] [id number] [address] [place] [phone] 14 Mar, 2017 Radiculopathy of lumbar rhiannon on M54.16 [facility] [address] [id number] [address] [place] [phone] 13 Mar, 2017 [facility] [address] [id number] [address] [place] [phone] 07 Mar, 2017 Encounter for immunization Z 23 and Lumbar radiculopathy, chronic M54.16 [facility] [address] [id number] [address] [place] [address] Mar, Back pain M54.9 and Anxiety F41.9 [facility] [address] [id number] [address] [place] [phone] Feb, Acute bilateral low back boy n with left-sided sciatica M54.42 and Acute bilateral low back pain with right-sided sciatica M54.41 [facility] [address] [id number] [address] [place] [address] Feb, [facility] [address] [id number] [address] [place] [phone] Feb, Back pain M54.9 [facility] [address] [id number] [address] [place] [phone] Jan, Back pain M54.9 and Anxiety F41.9 [facility] [address] [id number] [address] [place] [phone] 05 Jan, 2017 Diabetes E11.9 [facility] [address] [id number] [address] [place] [phone] Dec, Diabetes E11.9 ; Back pain M 54.9 ; Anxiety F41.9 and Insulin long- term use Z79.4 [facility] [address] [id number] [address] [place] [address] Dec, Anxiety F41.9 [facility] [address] [id number] [address] [place] [phone] Dec, Back pain M54.9 [facility] [address] [id number] [address] [place] [phone] Nov, Back pain M54.9 [facility] [address] [id number] [address] [place] [phone] Oct, Back pain M54.9 and Anxiety F41.9 [facility] [address] [id number] [address] [place] [phone] September, Back pain M54.9 [facility] [address] [id number] [address] [place] [phone] September, Back pain M54.9 and Anxiety F41.9 [facility] [address] [id number] [address] [place] [phone] Aug, Diabetes E11.9 ; Anxiety F41 .9 ; Back pain M54.9 and PAD (peripheral artery disease) I73.9 [facility] [address] [id number] [address] [place] [phone] Aug, Anxiety F41.9 [facility] [address] [id number] [address] [place] [phone] Aug, Back pain M54.9 [facility] [address] [id number] [address] [place] [phone] Jul, Back pain M54.9 [facility] [address] [id number] [address] [place] [phone] Jul, Back pain M54.9 [facility] [address] [id number] [address] [place] [phone] 23 Jul, 2016 Back pain M54.9 [facility] [address] [id number] [address] [place] [phone] 16 Jul, 2016 Dorsalgia M54.9 [facility] [address] [id number] [address] [place] [phone] 14 Jul, 2016 [facility] [address] [facility] [id number] [address] [place] [phone] May, Back pain M54.9 [facility] [address] [id number] [address] [place] [phone] May, Diabetes E11.9 ; Anxiety F41 .9 ; Port catheter in place Z95.828 ; Encounter for immunization Z23 and Insulin long-term use Z79.4 [facility] [address] [id number] [address] [place] [phone] Apr, Back pain M54.9 [facility] [address] [id number] [address] [place] [phone] Apr, Back pain M54.9 [facility] [address] [id number] [address] [place] [phone] Apr, [facility] [address] [id number] [address] [place] [phone] Apr, Back pain M54.9 [facility] [address] [id number] [address] [place] [phone] Mar, COPD (chronic obstructive pu lmonary disease) J44.9 [facility] [address] [id number] [address] [place] [phone] Feb, [facility] [address] [id number] [address] [place] [id number] Jan, [facility] [address] [id number] [address] [place] [address] Jan, [facility] [address] [id number] [address] [place] [address] Jan, [facility] [address] [id number] [address] [place] [address] Jan, [facility] [address] [id number] [address] [place] [address] Dec, Diabetes E11.9 ; Hypoxia R09 .02 and Back pain M54.9 [facility] [address] [id number] [address] [place] [address] Dec, [facility] [address] [id number] [address] [place] [address] Nov, [facility] [address] [id number] [address] [place] [address] Oct, Anxiety F41.9 [facility] [address] [id number] [address] [place] [address] Oct, Back pain M54.9 [facility] [address] [id number] [address] [place] [address] September, Back pain M54.9 [facility] [address] [id number] [address] [place] [address] September, Diabetes E11.9 [facility] [address] [id number] [address] [place] [address] September, [facility] [address] [facility] [id number] [address] [place] [address] September, Diabetes E11.9 ; Insulin sarai g-term use Z79.4 and Back pain M54.9 [facility] [address] [id number] [address] [place] [address] Aug, Back pain M54.9 [facility] [address] [id number] [address] [place] [address] Aug, Back pain M54.9 ; Anxiety F4 1.9 and Arthropathy, unspecified M12.9 [facility] [address] [id number] [address] [place] [address] Jul, Back pain M54.9 [facility] [address] [id number] [address] [place] [address] Jul, Anxiety F41.9 [facility] [address] [id number] [address] [place] [address] Jul, Back pain M54.9 [facility] [address] [id number] [address] [place] [address] Jul, [facility] [address] [facility] [id number] [address] [place] [address] Jul, [facility] [address] [address] May, Back pain M54.9 ; Diabetes E 11.9 ; Insulin long-term use Z79.4 ; COPD (chronic obstructive pulmonary disease) J44.9 and Hypertension I10 [facility] [address] [place] [id number] [place] [address] May, Chronic pain G89.29 [facility] [address] [address] Apr, [facility] [address] [address] Apr, [facility] [address] [address] Mar, [facility] [address] [id number] Mar, Encounter for immunization Z 23 and Diabetes E11.9 [facility] [address] [address] Feb, [facility] [address] [address] Feb, [facility] [address] [address] Jan, [facility] [address] [address] Jan, [facility] [address] [address] Dec, [facility] [address] [place] [place] [id number] [place] [address] Dec, [facility] [address] [address] Dec, Unspecified arthropathy, sit e unspecified 716.90 and Diabetes mellitus type 2, uncontrolled 250.02 [facility] [address] [place] [id number] [place] [address] Dec, [facility] [address] [id number] [address] [place] [address], [place] [address] Nov, [facility] [address] [id number] [address] [place] [address], [place] [address] Oct, [facility] [address] [id number] [address] [place] [address], [place] [address] September, [facility] [address] [id number] [address] [place] [address], [place] [address] September, [facility] [address] [id number] [address] [place] [address], [place] [address] September, [facility] [address] [id number] [address] [place] [address], [place] [address] September, [facility] [address] [id number] [address] [place] [address], [place] [address] Aug, [facility] [address] [id number] [address] [place] [address], [place] [address] Aug, [facility] [address] [id number] [address] [place] [address], [place] [address] Jul, [facility] [address] [id number] [address] [place] [address], [place] [address] 18 Jul, 2014 [facility] [address] [id number] [address] [place] [address], [place] [address] 16 Jul, 2014 [facility] [address] [id number] [address] [place] [address], [place] [address] 16 Jul, 2014 [facility] [address] [id number] [address] [place] [address], [place] [address] 16 Jul, 2014 [facility] [address] [id number] [address] [place] [address], [place] [address] 16 Jul, 2014 [facility] [address] [id number] [address] [place] [address], [place] [address] 16 Jul, 2014 [facility] [address] [id number] [address] [place] [address], [place] [address] 16 Jul, 2014 [facility] [address] [id number] [address] [place] [address], [place] [address] 16 Jul, 2014 [facility] [address] [id number] [address] [place] [address], [place] [address] 13 Jul, 2014 [facility] [address] [id number] [address] [place] [address], [place] [address] 13 Jul, 2014 [facility] [address] [id number] [address] [place] [address], [place] [address] 09 Jul, 2014 [facility] [address] [id number] [address] [place] [address], [place] [address] 09 Jul, 2014 [facility] [address] [id number] [address] [place] [address], [place] [address] 17 Jul, 2014 [facility] [address] [id number] [address] [place] [address], [place] [address] 17 Jul, 2014 [facility] [address] [id number] [address] [place] [address], [place] [address] 16 Jul, 2014 [facility] [address] [id number] [address] [place] [address], [place] [address] 16 Jul, 2014 [facility] [address] [id number] [address] [place] [address], [place] [address] 16 Jul, 2014 [facility] [address] [id number] [address] [place] [address], [place] [address] 16 Jul, 2014 [facility] [address] [id number] [address] [place] [address], [place] [address] 16 Jul, 2014 [facility] [address] [id number] [address] [place] [address], [place] [address] 16 Jul, 2014 [facility] [address] [id number] [address] [place] [address] 16 Jul, 2014 [facility] [address] [id number] [address] [place] [address] Jul, 2014 [facility] [address] [id number] [address] [place] [address], [place] [address] Jul, [facility] [address] [id number] [address] [place] [address], [place] [address] Jul, 2014 [facility] [address] [id number] [address] [place] [address], [place] [address] Jul, 2014 [facility] [address] [id number] [address] [place] [address], [place] [address] Jul, 2014 [facility] [address] [id number] [address] [place] [address], [place] [address] Jul, [facility] [address] [id number] [address] [place] [address], [place] [address] Jul, [facility] [address] [id number] [address] [place] [address], [place] [address] May, [facility] [address] [id number] [address] [place] [address], [place] [address] May, [facility] [address] [id number] [address] [place] [address], [place] [address] May, [facility] [address] [id number] [address] [place] [address], [place] [address] May, [facility] [address] [id number] [address] [place] [address], [place] [address] May, [facility] [address] [id number] [address] [place] [address] May, [facility] [address] [id number] [address] [place] [address], [place] [address] May, [facility] [address] [id number] [address] [place] [address], [place] [address] May, [facility] [address] [id number] [address] [place] [address] May, [facility] [address] [id number] [address] [place] [address], [place] [address] May, [facility] [address] [id number] [address] [place] [address], [place] [address] Apr, [facility] [address] [id number] [address] [place] [address], [place] [address] Apr, [facility] [address] [id number] [address] [place] [address], [place] [address] Apr, [facility] [address] [id number] [address] [place] [address], [place] [address] Apr, [facility] [address] [id number] [address] [place] [address], [place] [address] Apr, [facility] [address] [id number] [address] [place] [address], [place] [address] Apr, [facility] [address] [id number] [address] [place] [address], [place] [address] Mar, [facility] [address] [id number] [address] [place] [address], [place] [address] Mar, [facility] [address] [id number] [address] [place] [address], [place] [address] Mar, [facility] [address] [id number] [address] [place] [address], [place] [address] Mar, [facility] [address] [id number] [address] [place] [address], [place] [address] Mar, [facility] [address] [id number] [address] [place] [address], [place] [address] Mar, [facility] [address] [id number] [address] [place] [address], [place] [address] Mar, [facility] [address] [id number] [address] [place] [address], [place] [address] Mar, [facility] [address] [id number] [address] [place] [address], [place] [address] Mar, [facility] [address] [id number] [address] [place] [address], [place] [address] Mar, [facility] [address] [id number] [address] [place] [address], [place] [address] Mar, [facility] [address] [id number] [address] [place] [address], [place] [address] Feb, [facility] [address] [id number] [address] [place] [address], [place] [address] Feb, [facility] [address] [id number] [address] [place] [address], [place] [address] Feb, [facility] [address] [id number] [address] [place] [address], [place] [address] Feb, [facility] [address] [id number] [address] [place] [address], [place] [address] Feb, [facility] [address] [id number] [address] [place] [address], [place] [address] Feb, [facility] [address] [id number] [address] [place] [address], [place] [address] Feb, [facility] [address] [id number] [address] [place] [address], [place] [address] Feb, [facility] [address] [id number] [address] [place] [address], [place] [address] Feb, [facility] [address] [id number] [address] [place] [address], [place] [address] Feb, [facility] [address] [id number] [address] [place] [address], [place] [address] Jan, [facility] [address] [id number] [address] [place] [address], [place] [address] 22 Jan, 2014 [facility] [address] [id number] [address] [place] [address], [place] [address] 16 Jan, 2014 [facility] [address] [id number] [address] [place] [address], [place] [address] 16 Jan, 2014 [facility] [address] [id number] [address] [place] [address], [place] [address] 12 Jan, 2014 [facility] [address] [id number] [address] [place] [address], [place] [address] Jan, [facility] [address] [id number] [address] [place] [address], [place] [address] Jan, [facility] [address] [id number] [address] [place] [address], [place] [address] Dec, [facility] [address] [id number] [address] [place] [address], [place] [address] Dec, [facility] [address] [id number] [address] [place] [address], [place] [address] Dec, [facility] [address] [id number] [address] [place] [address], [place] [address] Dec, [facility] [address] [id number] [address] [place] [address], [place] [address] Dec, [facility] [address] [id number] [address] [place] [address], [place] [address] Dec, [facility] [address] [id number] [address] [place] [address], [place] [address] Dec, [facility] [address] [id number] [address] [place] [address], [place] [address] Dec, [facility] [address] [id number] [address] [place] [address], [place] [address] Oct, [facility] [address] [id number] [address] [place] [address], [place] [address] Oct, [facility] [address] [id number] [address] [place] [address], [place] [address] September, [facility] [address] [id number] [address] [place] [address], [place] [address] September, [facility] [address] [id number] [address] [place] [address], [place] [address] September, [facility] [address] [id number] [address] [place] [address], [place] [address] September, [facility] [address] [id number] [address] [place] [address], [place] [address] September, [facility] [address] [id number] [address] [place] [address], [place] [address] September, [facility] [address] [id number] [address] [place] [address], [place] [address] September, [facility] [address] [id number] [address] [place] [address], [place] [address] Aug, [facility] [address] [id number] [address] [place] [address], [place] [address] Aug, [facility] [address] [id number] [address] [place] [address], [place] [address] Jul, [facility] [address] [id number] [address] [place] [address], [place] [address] Jul, [facility] [address] [id number] [address] [place] [address], [place] [address] Jul, [facility] [address] [id number] [address] [place] [address], [place] [address] Jul, [facility] [address] [id number] [address] [place] [address], [place] [address] Jul, [facility] [address] [id number] [address] [place] [address], [place] [address] Jul, [facility] [address] [id number] [address] [place] [address], [place] [address] Jul, [facility] [address] [id number] [address] [place] [address], [place] [address] Jul, [facility] [address] [id number] [address] [place] [address], [place] [address] 15 May, 2013 [facility] [address] [id number] [address] [place] [address], [place] [address] 15 May, 2013 [facility] [address] [id number] [address] [place] [address], [place] [address] 14 May, 2013 [facility] [address] [id number] [address] [place] [address], [place] [address] 14 May, 2013 [facility] [address] [id number] [address] [place] [address], [place] [address] 18 Apr, 2013 [facility] [address] [id number] [address] [place] [address], [place] [address] Mar, [facility] [address] [id number] [address] [place] [address], [place] [address] Mar, [facility] [address] [id number] [address] [place] [address], [place] [address] Mar, [facility] [address] [id number] [address] [place] [address], [place] [address] 20 Mar, 2013 [facility] [address] [id number] [address] [place] [address], [place] [address] 18 Mar, 2013 [facility] [address] [id number] [address] [place] [address], [place] [address] 18 Mar, 2013 [facility] [address] [id number] [address] [place] [address], [place] [address] 18 Mar, 2013 [facility] [address] [id number] [address] [place] [address], [place] [address] 18 Mar, 2013 [facility] [address] [id number] [address] [place] [address], [place] [address] 11 Mar, 2013 [facility] [address] [id number] [address] [place] [address], [place] [address] Mar, [facility] [address] [id number] [address] [place] [address], [place] [address] Mar, [facility] [address] [id number] [address] [place] [address], [place] [address] Mar, [facility] [address] [id number] [address] [place] [address], [place] [address] Feb, [facility] [address] [id number] [address] [place] [address], [place] [address] Feb, [facility] [address] [id number] [address] [place] [address], [place] [address] Feb, [facility] [address] [id number] [address] [place] [address], [place] [address] Feb, [facility] [address] [id number] [address] [place] [address], [place] [address] Feb, [facility] [address] [id number] [address] [place] [address], [place] [address] Jan, [facility] [address] [id number] [address] [place] [address], [place] [address] Dec, [facility] [address] [id number] [address] [place] [address], [place] [address] Dec, [facility] [address] [id number] [address] [place] [address], [place] [address] Dec, [facility] [address] [id number] [address] [place] [address], [place] [address] Nov, [facility] [address] [id number] [address] [place] [address], [place] [address] Nov, [facility] [address] [id number] [address] [place] [address], [place] [address] Nov, [facility] [address] [id number] [address] [place] [address], [place] [address] Oct, [facility] [address] [id number] [address] [place] [address], [place] [address] Oct, [facility] [address] [id number] [address] [place] [address], [place] [address] Oct, [facility] [address] [id number] [address] [place] [address], [place] [address] September, [facility] [address] [id number] [address] [place] [address], [place] [address] September, [facility] [address] [id number] [address] [place] [address], [place] [address] September, [facility] [address] [id number] [address] [place] [address], [place] [address] September, [facility] [address] [id number] [address] [place] [address], [place] [address] September, [facility] [address] [id number] [address] [place] [address], [place] [address] Aug, [facility] [address] [id number] [address] [place] [address], [place] [address] Aug, [facility] [address] [id number] [address] [place] [address], [place] [address] Aug, [facility] [address] [id number] [address] [place] [address], [place] [address] Jul, [facility] [address] [id number] [address] [place] [address], [place] [address] Jul, [facility] [address] [id number] [address] [place] [address], [place] [address] Jul, [facility] [address] [id number] [address] [place] [address], [place] [address] Jul, [facility] [address] [id number] [address] [place] [address], [place] [address] Jul, [facility] [address] [id number] [address] [place] [address], [place] [address] Jul, [facility] [address] [id number] [address] [place] [address], [place] [address] Jul, [facility] [address] [id number] [address] [place] [address], [place] [address] 14 May, 2012 [facility] [address] [id number] [address] [place] [address], [place] [address] 08 May, 2012 [facility] [address] [id number] [address] [place] [address], [place] [address] May, [facility] [address] [id number] [address] [place] [address], [place] [address] Apr, [facility] [address] [id number] [address] [place] [address], [place] [address] Apr, [facility] [address] [id number] [address] [place] [address], [place] [address] Apr, [facility] [address] [id number] [address] [place] [address], [place] [address] Apr, [facility] [address] [id number] [address] [place] [address], [place] [address] Apr, [facility] [address] [id number] [address] [place] [address], [place] [address] Mar, [facility] [address] [id number] [address] [place] [address], [place] [address] Mar, [facility] [address] [id number] [address] [place] [address], [place] [address] Mar, [facility] [address] [id number] [address] [place] [address], [place] [address] Mar, [facility] [address] [id number] [address] [place] [address], [place] [address] Feb, [facility] [address] [id number] [address] [place] [address], [place] [address] Feb, [facility] [address] [id number] [address] [place] [address], [place] [address] Feb, [facility] [address] [id number] [address] [place] [address] [address] Feb, [facility] [address] [id number] [address] [place] [address], [place] [address] Feb, [facility] [address] [id number] [address] [place] [address], [place] [address] Jan, [facility] [address] [id number] [address] [place] [address], [place] [address] Dec, [facility] [address] [id number] [address] [place] [address], [place] [address] Dec, [facility] [address] [id number] [address] [place] [address], [place] [address] Dec, [facility] [address] [id number] [address] [place] [address], [place] [id number] Nov, [facility] [address] [id number] [address] [place] [address], [place] [address] Nov, [facility] [address] [id number] [address] [place] [address], [place] [address] Nov, [facility] [address] [id number] [address] [place] [address], [place] [id number] Oct, [facility] [address] [id number] [address] [place] [address], [place] [address] Oct, [facility] [address] [id number] [address] [place] [address], [place] [address] Oct, [facility] [address] [id number] [address] [place] [address], [place] [id number] Oct, [facility] [address] [id number] [address] [place] [address], [place] [address] September, [facility] [address] [id number] [address] [place] [address], [place] [address] September, [facility] [address] [id number] [address] [place] [address], [place] [address] Aug, [facility] [address] [id number] [address] [place] [address], [place] [address] Aug, [facility] [address] [id number] [address] [place] [address], [place] [address] Aug, [facility] [address] [id number] [address] [place] [address], [place] [address] Aug, [facility] [address] [id number] [address] [place] [address], [place] [id number] Aug, [facility] [address] [id number] [address] [place] [address], [place] [address] Aug, [facility] [address] [id number] [address] [place] [address], [place] [address] Aug, [facility] [address] [id number] [address] [place] [address], [place] [address] Jul, [facility] [address] [id number] [address] [place] [address], [place] [address] Jul, [facility] [address] [id number] [address] [place] [address], [place] [address] Jul, [facility] [address] [id number] [address] [place] [address], [place] [address] May, [facility] [address] [id number] [address] [place] [address], [place] [address] May, [facility] [address] [id number] [address] [place] [address], [place] [address] May, [facility] [address] [id number] [address] [place] [address], [place] [address] Apr, [facility] [address] [id number] [address] [place] [address], [place] [address] Apr, [facility] [address] [id number] [address] [place] [address], [place] [address] Mar, [facility] [address] [id number] [address] [place] [address], [place] [address] Mar, [facility] [address] [id number] [address] [place] [id number] Mar, [facility] [address] [id number] [address] [place] [id number] Mar, [facility] [address] [id number] [address] [place] [id number] Mar, [facility] [address] [id number] [address] [place] [id number] Mar, [facility] [address] [id number] [address] [place] [id number] Feb, [facility] [address] [id number] [address] [place] [id number] Feb, [facility] [address] [id number] [address] [place] [id number] Feb, IMMUNIZATIONS No Known Immunizations SOCIAL HISTORY [...] foot infections x 3 2015 Hospitalization History [facility] - right big t oe removed 2018
--- OUTSIDE RECORDS SUMMARY | 2020-01-03 08:11 | XMS REPORT ---
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 786415637 Problem Recurrent major depressive disorder, in full remission F33.42 Active 068355018 Problem Hyperlipidemia, unspecified E78.5 Ac tive 70092748 Problem PAD (peripheral artery disease) I73.9 Active 874562157 Problem Type 2 diabetes mellitus with other specified complication E11.69 Active 951165332293 Problem Anxiety F41.9 Active 38607351 Problem Type 2 diabetes mellitus wit h diabetic peripheral angiopathy without gangrene E11.51 Active 167851579 Problem ED (erectile dysfunction) of organic origin N52.9 Active 519096120 Problem Arthritis M19.90 Active 6094409 Problem Morbid (severe) obesity due to excess calories E66 .01 Active 542030714 ALLERGIES No Information ENCOUNTERS Encounter Location Date Diagnosis [facility] [address] [facility] [id number] [address] [place] [phone] Nov, [address] [id number] [address] Oct, Anxiety F41.[address] [id number], [place] [address] Oct, [facility] [address] [facility] [id number] [address] [place] [phone] Oct, [place] [address] [id number] [address] [place] [id number] 15 Oct, 2019 Back pain M54.9 and Lumbar r adiculopathy, chronic M54.16 [facility] [address] [id number] [address] [place] [id number] 04 Oct, 2019 Lumbar radiculopathy, chroni c M54.16 [facility] [address] [facility] [id number] [address] [place] [id number] 03 Oct, 2019 Anxiety F41.[address] [id number], [place] [address] Oct, [place] [address] [facility] [id number] [address] [place] [address] September, Back pain M54.9 and Lumbar r adiculopathy, chronic M54.[address] [id number], [place] [address] September, Anxiety F41.[id number] [place] [address] Aug, [facility] [address] [facility] [id number] [address] [place] [id number] 24 Aug, 2019 Back pain M54.9 and Lumbar r adiculopathy, chronic M54.16 [facility] [address] [facility] [id number] [address] [place] [id number] 10 Aug, 2019 Anxiety F41.9 ; Back pain M5 4.9 and Lumbar radiculopathy, chronic M54.16 [facility] [address] [id number] [address] [place] [id number] 09 Aug, 2019 Lumbar radiculopathy, chroni c M54.16 ; Anxiety F41.9 ; Type 2 diabetes mellitus with other specified complication E11.69 and Hypertension I10 [facility] [address] [id number] [address] [place] [address] Jul, [facility] [address] [id number] [address] [place] [id number] 27 Jul, 2019 Lumbar radiculopathy, chroni c M54.16 ; Back pain M54.9 and Anxiety F41.9 [facility] [address] [id number] [address] [place] [id number] 23 Jul, 2019 [facility] [address] [id number] [address] [place] [id number] 13 Jul, 2019 Anxiety F41.9 [facility] [address] [id number] [address] [place] [address] 12 Jul, 2019 Anxiety F41.9 [facility] [address] [id number] [address] [place] [address] 02 Jul, 2019 Back pain M54.9 [facility] [address] [id number] [address] [place] [id number] 02 Jul, 2019 Back pain M54.9 [facility] [address] [id number] [address] [place] [id number] 28 Jul, 2019 Lumbar radiculopathy, chroni c M54.16 [facility] [address] [id number] [address] [place] [id number] 28 Jul, 2019 Back pain M54.9 [facility] [address] [id number] [address] [place] [phone] 07 Jul, 2019 Encounter for Medicare annua [...] diabetes mellitus with other specified complication E11.69 [facility] [address] [id number] [address] [place] [address] 03 Jul, 2019 Back pain M54.9 [facility] [address] [id number] [address] [place] [phone] Jul, Anxiety F41.9 [facility] [address] [id number] [address] [place] [address] May, [facility] [address] [id number] [address] [place] [address] May, Lumbar radiculopathy, chroni c M54.16 [facility] [address] [id number] [address] [place] [address] May, Back pain M54.9 [facility] [address] [id number] [address] [place] [phone] May, [facility] [address] [id number] [address] [place] [address] May, Back pain M54.9 and Anxiety F41.9 [facility] [address] [id number] [address] [place] [phone] May, [facility] [address] [id number] [address] [place] [address] May, Type 2 diabetes mellitus wit h diabetic peripheral angiopathy without gangrene E11.51 ; Arthritis M19.90 ; ED (erectile dysfunction) of organic origin N52.9 ; Morbid (severe) obesity due to excess calories E66.01 and Lumbar radiculopathy, chronic M54.16 [facility] [address] [id number] [address] [place] [address] May, Diabetes E11.9 [facility] [address] [id number] [address] [place] [phone] Apr, [facility] [address] [id number] [address] [place] [address] Apr, Back pain M54.9 [facility] [address] [id number] [address] [place] [phone] Apr, [facility] [address] [id number] [address] [place] [address] Apr, Anxiety F41.9 [facility] [address] [id number] [address] [place] [address] Apr, Back pain M54.9 and Lumbar r adiculopathy, chronic M54.16 [facility] [address] [id number] [address] [place] [address] Apr, Back pain M54.9 ; Anxiety F4 1.9 and Lumbar radiculopathy, chronic M54.16 [facility] [address] [id number] [address] [place] [phone] Mar, [facility] [address] [id number] [address] [place] [address] Mar, [facility] [address] [id number] [address] [place] [address] Mar, Back pain M54.9 [facility] [address] [id number] [address] [place] [address] Mar, [facility] [address] [id number] [address] [place] [address] Feb, Type 2 diabetes mellitus wit h diabetic peripheral angiopathy without gangrene E11.51 ; Lumbar radiculopathy, chronic M54.16 ; ED (erectile dysfunction) of organic origin N52.9 ; Encounter for immunization Z23 ; COPD (chronic obstructive pulmonary disease) J44.9 and Anxiety F41.9 [facility] [address] [id number] [address] [place] [address] Feb, Back pain M54.9 [facility] [address] [id number] [address] [place] [phone] Feb, [facility] [address] [id number] [address] [place] [phone] Feb, [facility] [address] [facility] [id number] [address] [place] [phone] Feb, [facility] [address] [id number] [address] [place] [address] Feb, Back pain M54.9 [facility] [address] [id number] [address] [place] [phone] Feb, [facility] [address] [id number] [address] [place] [phone] Jan, Anxiety F41.9 [facility] [address] [id number] [address] [place] [phone] Jan, Anxiety F41.9 [facility] [address] [id number] [address] [place] [phone] Jan, [facility] [address] [id number] [address] [place] [phone] Jan, [facility] [address] [id number] [address] [place] [address] Jan, Back pain M54.9 [facility] [address] [id number] [address] [place] [address] Jan, [facility] [address] [id number] [address] [place] [address] Dec, Acute non-recurrent frontal sinusitis J01.10 [facility] [address] [id number] [address] [place] [address] Dec, Acute non-recurrent frontal sinusitis J01.10 [facility] [address] [id number] [address] [place] [address] Dec, Type 2 diabetes mellitus wit h diabetic peripheral angiopathy without gangrene E11.51 ; Lumbar radiculopathy, chronic M54.16 ; Recurrent major depressive disorder, in full remission F33.42 and Anxiety F41.9 [facility] [address] [id number] [address] [place] [address] Dec, [facility] [address] [id number] [address] [place] [address] Nov, Anxiety F41.9 [facility] [address] [id number] [address] [place] [phone] Nov, [facility] [address] [id number] [address] [place] [address] Nov, Back pain M54.9 [facility] [address] [id number] [address] [place] [address] Nov, [facility] [address] [id number] [address] [place] [phone] Nov, Back pain M54.9 [facility] [address] [id number] [address] [place] [address] Nov, Anxiety F41.9 [facility] [address] [id number] [address] [place] [phone] Nov, [facility] [address] [id number] [address] [place] [phone] Oct, Back pain M54.9 [facility] [address] [id number] [address] [place] [address] Oct, [facility] [address] [id number] [address] [place] [address] Oct, [facility] [address] [id number] [address] [place] [phone] Oct, [facility] [address] [id number] [address] [place] [phone] September, Back pain M54.9 [facility] [address] [id number] [address] [place] [address] September, [facility] [address] [id number] [address] [place] [address] September, [facility] [address] [id number] [address] [place] [address] September, [facility] [address] [id number] [address] [place] [address] Aug, Back pain M54.9 [facility] [address] [id number] [address] [place] [id number] 17 Aug, 2018 Anxiety F41.9 [facility] [address] [id number] [address] [place] [address] Aug, [facility] [address] [id number] [address] [place] [address] Aug, Pressure ulcer of other site , stage 3 L89.893 and COPD (chronic obstructive pulmonary disease) J44.9 [facility] [address] [id number] [address] [place] [address] Aug, History of smoking Z87.891 [facility] [address] [facility] [id number] [address] [place] [address] Jul, Type 2 diabetes mellitus wit h diabetic peripheral angiopathy without gangrene E11.51 [facility] [address] [id number] [address] [place] [address] Jul, Back pain M54.9 [facility] [address] [id number] [address] [place] [address] Jul, Anxiety F41.9 [facility] [address] [id number] [address] [place] [phone] Jul, [facility] [address] [id number] [address] [place] [address] Jul, Back pain M54.9 [facility] [address] [id number] [address] [place] [address] Jul, Back pain M54.9 [facility] [address] [facility] [id number] [address] [place] [address] Jul, Lumbar radiculopathy, chroni c M54.16 ; Hypertension I10 and Type 2 diabetes mellitus with diabetic peripheral angiopathy without gangrene E11.51 [facility] [address] [id number] [address] [place] [address] Jul, Back pain M54.9 [facility] [address] [id number] [address] [place] [address] Jul, Back pain M54.9 and Anxiety F41.9 [facility] [address] [id number] [address] [place] [address] Jul, [facility] [address] [id number] [address] [place] [address] May, Back pain M54.9 and Anxiety F41.9 [facility] [address] [id number] [address] [place] [address] May, [facility] [address] [facility] [id number] [address] [place] [address] Apr, Radiculopathy of lumbar rhiannon on M54.16 ; Back pain M54.9 and Anxiety F41.9 [facility] [address] [id number] [address] [place] [address] Apr, Diabetes E11.9 ; Muscle spas m M62.838 and Lumbar radiculopathy, chronic M54.16 [facility] [address] [id number] [address] [place] [id number] Apr, [facility] [address] [id number] [address] [place] [address] Apr, [facility] [address] [id number] [address] [place] [address] Mar, Back pain M54.9 and Anxiety F41.9 [facility] [address] [id number] [address] [place] [address] Mar, [facility] [address] [facility] [id number] [address] [place] [address] Mar, [facility] [address] [id number] [address] [place] [address] Mar, [facility] [address] [id number] [address] [place] [address] Mar, Encounter for immunization Z 23 [facility] [address] [id number] [address] [place] [address] 31 Feb, 2018 Back pain M54.9 and Anxiety F41.9 [facility] [address] [id number] [address] [place] [address] 04 Feb, 2018 Back pain M54.9 and Anxiety F41.9 [facility] [address] [id number] [address] [place] [address] 06 Jan, 2018 Back pain M54.9 and Anxiety F41.9 [facility] [address] [id number] [address] [place] [address] Jan, [facility] [address] [id number] [address] [place] [address] Dec, [facility] [address] [id number] [address] [place] [address] Dec, Back pain M54.9 and Anxiety F41.9 [facility] [address] [id number] [address] [place] [address] Dec, Diabetes E11.9 ; Type 2 diab etes mellitus with diabetic peripheral angiopathy without gangrene E11.51 ; Lumbar radiculopathy, chronic M54.16 ; COPD (chronic obstructive pulmonary disease) J44.9 and Anxiety F41.9 [facility] [address] [id number] [address] [place] [address] Dec, Back pain M54.9 and Anxiety F41.9 [facility] [address] [id number] [address] [place] [address] Nov, Back pain M54.9 and Anxiety F41.9 [facility] [address] [id number] [address] [place] [address] Oct, [place] [id number] [id number] [address] [place] [address] Oct, Back pain M54.9 and Anxiety F41.9 [facility] [address] [id number] [address] [place] [address] September, Anxiety F41.9 and Back pain M54.9 [place] [address] [id number] [address] [place] [address] September, Diabetes E11.9 ; Hypertensio n I10 ; COPD (chronic obstructive pulmonary disease) J44.9 and Lumbar radiculopathy, chronic M54.16 [place] [address] [id number] [address] [place] [address] September, Anxiety F41.9 [place] [address] [id number] [address] [place] [address] Aug, [place] [address] [id number] [address] [place] [address] Aug, [place] [address] [id number] [address] [place] [address] Aug, Anxiety F41.9 and Back pain M54.9 [place] [address] [facility] [id number] [address] [place] [address] Aug, Medicare annual wellness vis it, initial Z00.00 ; COPD (chronic obstructive pulmonary disease) J44.9 ; PAD (peripheral artery disease) I73.9 ; Insulin long-term use Z79.4 ; Hypertension I10 ; Anxiety F41.9 ; Recurrent major depressive disorder, in full remission F33.42 ; Pressure ulcer of other site, stage 3 L89.893 ; Type 2 diabetes mellitus with diabetic peripheral angiopathy without gangrene E11.51 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 [facility] [address] [id number] [address] [place] [address] Jul, Back pain M54.9 [facility] [address] [facility] [id number] [address] [place] [address] Jul, [facility] [address] [id number] [address] [place] [address] Jul, Anxiety F41.9 and Back pain M54.9 [facility] [address] [id number] [address] [place] [address] Jul, Diabetes E11.9 [facility] [address] [id number] [address] [place] [address] May, [facility] [address] [id number] [address] [place] [address] May, Diabetes E11.9 ; Anxiety F41 .9 ; Back pain M54.9 and COPD (chronic obstructive pulmonary disease) J44.9 [facility] [address] [id number] [address] [place] [address] May, Back pain M54.9 [facility] [address] [id number] [address] [place] [address] May, [facility] [address] [id number] [address] [place] [address] Apr, Back pain M54.9 [facility] [address] [id number] [address] [place] [address] Mar, Back pain M54.9 [facility] [address] [id number] [address] [place] [address] Mar, [facility] [address] [id number] [address] [place] [address] 16 Mar, 2017 [facility] [address] [id number] [address] [place] [address] 14 Mar, 2017 Radiculopathy of lumbar rhiannon on M54.16 [facility] [address] [id number] [address] [place] [id number] 13 Mar, 2017 [facility] [address] [id number] [address] [place] [address] Mar, Encounter for immunization Z 23 and Lumbar radiculopathy, chronic M54.16 [facility] [address] [id number] [address] [place] [address] Mar, Back pain M54.9 and Anxiety F41.9 [facility] [address] [id number] [address] [place] [address] 10 Feb, 2017 Acute bilateral low back boy n with left-sided sciatica M54.42 and Acute bilateral low back pain with right-sided sciatica M54.41 [facility] [address] [id number] [address] [place] [address] Feb, [facility] [address] [id number] [address] [place] [address] Feb, Back pain M54.9 [facility] [address] [id number] [address] [place] [address] Jan, Back pain M54.9 and Anxiety F41.9 [facility] [address] [id number] [address] [place] [address] 05 Jan, 2017 Diabetes E11.9 [facility] [address] [id number] [address] [place] [id number] 14 Dec, 2016 Diabetes E11.9 ; Back pain M 54.9 ; Anxiety F41.9 and Insulin long- term use Z79.4 [facility] [address] [id number] [address] [place] [address] Dec, Anxiety F41.9 [facility] [address] [id number] [address] [place] [address] Dec, Back pain M54.9 [facility] [address] [id number] [address] [place] [address] Nov, Back pain M54.9 [facility] [address] [facility] [id number] [address] [place] [address] Oct, Back pain M54.9 and Anxiety F41.9 [facility] [address] [id number] [address] [place] [id number] September, Back pain M54.9 [facility] [address] [id number] [address] [place] [id number] September, Back pain M54.9 and Anxiety F41.9 [facility] [address] [id number] [address] [place] [id number] Aug, Diabetes E11.9 ; Anxiety F41 .9 ; Back pain M54.9 and PAD (peripheral artery disease) I73.9 [facility] [address] [id number] [address] [place] [id number] Aug, Anxiety F41.9 [facility] [address] [id number] [address] [place] [id number] 14 Aug, 2016 Back pain M54.9 [facility] [address] [id number] [address] [place] [id number] Jul, Back pain M54.9 [facility] [address] [id number] [address] [place] [id number] Jul, Back pain M54.9 [facility] [address] [id number] [address] [place] [id number] 23 Jul, 2016 Back pain M54.9 [facility] [address] [id number] [address] [place] [id number] 16 Jul, 2016 Dorsalgia M54.9 [facility] [address] [id number] [address] [place] [id number] 14 Jul, 2016 [facility] [address] [id number] [address] [place] [id number] May, Back pain M54.9 [facility] [address] [id number] [address] [place] [id number] May, Diabetes E11.9 ; Anxiety F41 .9 ; Port catheter in place Z95.828 ; Encounter for immunization Z23 and Insulin long-term use Z79.4 [facility] [address] [id number] [address] [place] [id number] Apr, Back pain M54.9 [facility] [address] [id number] [address] [place] [id number] Apr, Back pain M54.9 [facility] [address] [id number] [address] [place] [id number] Apr, [facility] [address] [id number] [address] [place] [id number] Apr, Back pain M54.9 [facility] [address] [id number] [address] [place] [address] Mar, COPD (chronic obstructive pu lmonary disease) J44.9 [facility] [address] [id number] [address] [place] [address] Feb, [facility] [address] [id number] [address] [place] [address] Jan, [facility] [address] [id number] [address] [place] [id number] Jan, [facility] [address] [id number] [address] [place] [address] Jan, [facility] [address] [id number] [address] [place] [address] Jan, [facility] [address] [facility] [id number] [address] [place] [address] Dec, Diabetes E11.9 ; Hypoxia R09 .02 and Back pain M54.9 [facility] [address] [id number] [address] [place] [address] Dec, [facility] [address] [id number] [address] [place] [address] Nov, [facility] [address] [id number] [address] [place] [id number] Oct, Anxiety F41.9 [facility] [address] [id number] [address] [place] [address] Oct, Back pain M54.9 [facility] [address] [id number] [address] [place] [address] September, Back pain M54.9 [facility] [address] [id number] [address] [place] [address] September, Diabetes E11.9 [facility] [address] [id number] [address] [place] [address] September, [facility] [address] [facility] [id number] [address] [place] [address] September, Diabetes E11.9 ; Insulin sarai g-term use Z79.4 and Back pain M54.9 [facility] [address] [id number] [address] [place] [address] Aug, Back pain M54.9 [facility] [address] [id number] [address] [place] [address] Aug, Back pain M54.9 ; Anxiety F4 1.9 and Arthropathy, unspecified M12.9 [facility] [address] [id number] [address] [place] [address] Jul, Back pain M54.9 [facility] [address] [facility] [id number] [address] [place] [address] Jul, Anxiety F41.9 [facility] [address] [id number] [address] [place] [address] Jul, Back pain M54.9 [facility] [address] [facility] [id number] [address] [place] [address] Jul, [facility] [address] [facility] [id number] [address] [place] [address] Jul, [facility] [address] [facility] [id number] [address] [place] [address] May, Back pain M54.9 ; Diabetes E 11.9 ; Insulin long-term use Z79.4 ; COPD (chronic obstructive pulmonary disease) J44.9 and Hypertension I10 [facility] [address] [facility] [id number] [address] [place] [address] May, Chronic pain G89.29 [facility] [address] [facility] [id number] [address] [place] [id number] Apr, [facility] [address] [place] [id number] [address] [place] [phone] Apr, [facility] [address] [id number] [address] [place] [phone] Mar, [facility] [address] [id number] [address] [place] [address] Mar, Encounter for immunization Z 23 and Diabetes E11.9 [facility] [address] [facility] [id number] [address] [place] [id number] Feb, [facility] [address] [facility] [id number] [address] [place] [phone] Feb, [facility] [address] [id number] [address] [place] [id number] Jan, [facility] [address] [id number] [address] [place] [phone] Jan, [facility] [address] [id number] [address] [place] [phone] Dec, [facility] [address] [facility] [id number] [address] [place] [address] Dec, [facility] [address] [place] [id number] [address] [place] [id number] Dec, Unspecified arthropathy, sit e unspecified 716.90 and Diabetes mellitus type 2, uncontrolled 250.02 [facility] [address] [place] [id number] [address] [place] [id number] Dec, [facility] [address] [id number] [address] [place] [address], [place] [address] Nov, [facility] [address] [id number] [address] [place] [address], [place] [address] Oct, [facility] [address] [id number] [address] [place] [address], [place] [address] September, [facility] [address] [id number] [address] [place] [address], [place] [address] September, [facility] [address] [id number] [address] [place] [address], [place] [address] September, [facility] [address] [id number] [address] [place] [address], [place] [address] September, [facility] [address] [id number] [address] [place] [address], [place] [address] Aug, [facility] [address] [id number] [address] [place] [address], [place] [address] Aug, [facility] [address] [id number] [address] [place] [address], [place] [address] 18 Jul, 2014 [facility] [address] [id number] [address] [place] [address], [place] [address] 18 Jul, 2014 [facility] [address] [id number] [address] [place] [address], [place] [address] 16 Jul, 2014 [facility] [address] [id number] [address] [place] [address], [place] [address] 16 Jul, 2014 [facility] [address] [id number] [address] [place] [address], [place] [address] 16 Jul, 2014 [facility] [address] [id number] [address] [place] [address], [place] [address] 16 Jul, 2014 [facility] [address] [id number] [address] [place] [address], [place] [address] 16 Jul, 2014 [facility] [address] [id number] [address] [place] [address], [place] [address] 16 Jul, 2014 [facility] [address] [id number] [address] [place] [address], [place] [address] 16 Jul, 2014 [facility] [address] [id number] [address] [place] [address], [place] [address] 13 Jul, 2014 [facility] [address] [id number] [address] [place] [address], [place] [address] 13 Jul, 2014 [facility] [address] [id number] [address] [place] [address], [place] [address] 09 Jul, 2014 [facility] [address] [id number] [address] [place] [address], [place] [address] 09 Jul, 2014 [facility] [address] [id number] [address] [place] [address], [place] [address] 17 Jul, 2014 [facility] [address] [id number] [address] [place] [address], [place] [address] 17 Jul, 2014 [facility] [address] [id number] [address] [place] [address], [place] [address] 16 Jul, 2014 [facility] [address] [id number] [address] [place] [address], [place] [address] 16 Jul, 2014 [facility] [address] [id number] [address] [place] [address], [place] [address] 16 Jul, 2014 [facility] [address] [id number] [address] [place] [address], [place] [address] 16 Jul, 2014 [facility] [address] [id number] [address] [place] [address], [place] [address] 16 Jul, 2014 [facility] [address] [id number] [address] [place] [address], [place] [address] 16 Jul, 2014 [facility] [address] [id number] [address] [place] [address], [place] [address] 16 Jul, 2014 [facility] [address] [id number] [address] [place] [address], [place] [address] Jul, [facility] [address] [id number] [address] [place] [address], [place] [address] Jul, [facility] [address] [id number] [address] [place] [address], [place] [address] Jul, [facility] [address] [id number] [address] [place] [address], [place] [address] Jul, [facility] [address] [id number] [address] [place] [address], [place] [address] Jul, 2014 [facility] [address] [id number] [address] [place] [address], [place] [address] Jul, [facility] [address] [id number] [address] [place] [address], [place] [address] Jul, [facility] [address] [id number] [address] [place] [address], [place] [address] May, [facility] [address] [id number] [address] [place] [address], [place] [address] May, [facility] [address] [id number] [address] [place] [address], [place] [address] May, [facility] [address] [id number] [address] [place] [address], [place] [address] May, [facility] [address] [id number] [address] [place] [address], [place] [address] May, [facility] [address] [id number] [address] [place] [address], [place] [address] May, [facility] [address] [id number] [address] [place] [address], [place] [address] May, [facility] [address] [id number] [address] [place] [address], [place] [address] May, [facility] [address] [id number] [address] [place] [address], [place] [address] May, [facility] [address] [id number] [address] [place] [address], [place] [address] May, [facility] [address] [id number] [address] [place] [address], [place] [address] Apr, [facility] [address] [id number] [address] [place] [address], [place] [address] Apr, [facility] [address] [id number] [address] [place] [address], [place] [address] Apr, [facility] [address] [id number] [address] [place] [address], [place] [address] Apr, [facility] [address] [id number] [address] [place] [address], [place] [address] Apr, [facility] [address] [id number] [address] [place] [address], [place] [address] Apr, [facility] [address] [id number] [address] [place] [address], [place] [address] Mar, [facility] [address] [id number] [address] [place] [address], [place] [address] Mar, [facility] [address] [id number] [address] [place] [address], [place] [address] Mar, [facility] [address] [id number] [address] [place] [address], [place] [address] Mar, [facility] [address] [id number] [address] [place] [address], [place] [address] Mar, [facility] [address] [id number] [address] [place] [address], [place] [address] Mar, [facility] [address] [id number] [address] [place] [address], [place] [address] Mar, [facility] [address] [id number] [address] [place] [address], [place] [address] Mar, [facility] [address] [id number] [address] [place] [address], [place] [address] Mar, [facility] [address] [id number] [address] [place] [address], [place] [address] Mar, [facility] [address] [id number] [address] [place] [address], [place] [address] Mar, [facility] [address] [id number] [address] [place] [address], [place] [address] Feb, [facility] [address] [id number] [address] [place] [address], [place] [address] Feb, [facility] [address] [id number] [address] [place] [address], [place] [address] Feb, [facility] [address] [id number] [address] [place] [address], [place] [address] Feb, [facility] [address] [id number] [address] [place] [address], [place] [address] Feb, [facility] [address] [id number] [address] [place] [address], [place] [address] Feb, [facility] [address] [id number] [address] [place] [address], [place] [address] Feb, [facility] [address] [id number] [address] [place] [address], [place] [address] Feb, [facility] [address] [id number] [address] [place] [address], [place] [address] Feb, [facility] [address] [id number] [address] [place] [address], [place] [address] Feb, [facility] [address] [id number] [address] [place] [address], [place] [address] Jan, [facility] [address] [id number] [address] [place] [address], [place] [address] Jan, [facility] [address] [id number] [address] [place] [address], [place] [address] 16 Jan, 2014 [facility] [address] [id number] [address] [place] [address], [place] [address] 16 Jan, 2014 [facility] [address] [id number] [address] [place] [address], [place] [address] 12 Jan, 2014 [facility] [address] [id number] [address] [place] [address], [place] [address] Jan, [facility] [address] [id number] [address] [place] [address], [place] [address] Jan, [facility] [address] [id number] [address] [place] [address], [place] [address] Dec, [facility] [address] [id number] [address] [place] [address], [place] [address] Dec, [facility] [address] [id number] [address] [place] [address], [place] [address] Dec, [facility] [address] [id number] [address] [place] [address], [place] [address] Dec, [facility] [address] [id number] [address] [place] [address], [place] [address] Dec, [facility] [address] [id number] [address] [place] [address], [place] [address] Dec, [facility] [address] [id number] [address] [place] [address], [place] [address] Dec, [facility] [address] [id number] [address] [place] [address], [place] [address] Dec, [facility] [address] [id number] [address] [place] [address], [place] [address] Oct, [facility] [address] [id number] [address] [place] [address], [place] [address] Oct, [facility] [address] [id number] [address] [place] [address], [place] [address] September, [facility] [address] [id number] [address] [place] [address], [place] [address] September, [facility] [address] [id number] [address] [place] [address], [place] [address] September, [facility] [address] [id number] [address] [place] [address], [place] [address] September, [facility] [address] [id number] [address] [place] [address], [place] [address] September, [facility] [address] [id number] [address] [place] [address], [place] [address] September, [facility] [address] [id number] [address] [place] [address], [place] [address] September, [facility] [address] [id number] [address] [place] [address], [place] [address] Aug, [facility] [address] [id number] [address] [place] [address], [place] [address] Aug, [facility] [address] [id number] [address] [place] [address], [place] [address] Jul, [facility] [address] [id number] [address] [place] [address], [place] [address] Jul, [facility] [address] [id number] [address] [place] [address], [place] [address] Jul, [facility] [address] [id number] [address] [place] [address], [place] [address] Jul, [facility] [address] [id number] [address] [place] [address], [place] [address] Jul, [facility] [address] [id number] [address] [place] [address], [place] [address] Jul, [facility] [address] [id number] [address] [place] [address], [place] [address] Jul, [facility] [address] [id number] [address] [place] [address], [place] [address] Jul, [facility] [address] [id number] [address] [place] [address], [place] [address] 15 May, 2013 [facility] [address] [id number] [address] [place] [address], [place] [address] 15 May, 2013 [facility] [address] [id number] [address] [place] [address], [place] [address] 14 May, 2013 [facility] [address] [id number] [address] [place] [address], [place] [address] 14 May, 2013 [facility] [address] [id number] [address] [place] [address], [place] [address] 18 Apr, 2013 [facility] [address] [id number] [address] [place] [address], [place] [address] Mar, [facility] [address] [id number] [address] [place] [address], [place] [address] Mar, [facility] [address] [id number] [address] [place] [address], [place] [address] Mar, [facility] [address] [id number] [address] [place] [address], [place] [address] Mar, [facility] [address] [id number] [address] [place] [address], [place] [address] 18 Mar, 2013 [facility] [address] [id number] [address] [place] [address], [place] [address] 18 Mar, 2013 [facility] [address] [id number] [address] [place] [address], [place] [address] 18 Mar, 2013 [facility] [address] [id number] [address] [place] [address], [place] [address] 18 Mar, 2013 [facility] [address] [id number] [address] [place] [address], [place] [address] 11 Mar, 2013 [facility] [address] [id number] [address] [place] [address], [place] [address] Mar, [facility] [address] [id number] [address] [place] [address], [place] [address] 04 Mar, 2013 [facility] [address] [id number] [address] [place] [address], [place] [address] Mar, [facility] [address] [id number] [address] [place] [address], [place] [address] Feb, [facility] [address] [id number] [address] [place] [address], [place] [address] Feb, [facility] [address] [id number] [address] [place] [address], [place] [address] Feb, [facility] [address] [id number] [address] [place] [address], [place] [address] Feb, [facility] [address] [id number] [address] [place] [address], [place] [address] Feb, [facility] [address] [id number] [address] [place] [address], [place] [address] Jan, [facility] [address] [id number] [address] [place] [address], [place] [address] Dec, [facility] [address] [id number] [address] [place] [address], [place] [address] Dec, [facility] [address] [id number] [address] [place] [address], [place] [address] Dec, [facility] [address] [id number] [address] [place] [address], [place] [address] Nov, [facility] [address] [id number] [address] [place] [address], [place] [address] Nov, [facility] [address] [id number] [address] [place] [address], [place] [address] Nov, [facility] [address] [id number] [address] [place] [address], [place] [address] Oct, [facility] [address] [id number] [address] [place] [address], [place] [address] Oct, [facility] [address] [id number] [address] [place] [address], [place] [address] Oct, [facility] [place] [address] [id number] [address] [place] [address], [place] [address] September, [facility] [address] [id number] [address] [place] [address], [place] [address] September, [facility] [address] [id number] [address] [place] [address], [place] [address] September, [facility] [address] [id number] [address] [place] [address], [place] [address] September, [facility] [address] [id number] [address] [place] [address], [place] [address] September, [facility] [address] [id number] [address] [place] [address], [place] [address] Aug, [facility] [address] [id number] [address] [place] [address], [place] [address] Aug, [facility] [address] [id number] [address] [place] [address], [place] [address] Aug, [facility] [place] [address] [id number] [address] [place] [address], [place] [address] Jul, [facility] [address] [id number] [address] [place] [address], [place] [address] Jul, [facility] [place] [address] [id number] [address] [place] [address], [place] [address] Jul, [facility] [address] [id number] [address] [place] [address], [place] [address] Jul, [facility] [address] [id number] [address] [place] [address], [place] [address] Jul, [facility] [address] [id number] [address] [place] [address], [place] [address] Jul, [facility] [address] [id number] [address] [place] [address], [place] [address] Jul, [facility] [address] [id number] [address] [place] [address], [place] [address] 14 May, 2012 [facility] [address] [id number] [address] [place] [address], [place] [address] 08 May, 2012 [facility] [address] [id number] [address] [place] [address], [place] [address] May, [facility] [address] [id number] [address] [place] [address], [place] [address] Apr, [facility] [address] [id number] [address] [place] [address], [place] [address] Apr, [facility] [address] [id number] [address] [place] [address], [place] [address] Apr, [facility] [address] [id number] [address] [place] [address], [place] [address] Apr, [facility] [address] [id number] [address] [place] [address], [place] [address] Apr, [facility] [place] [address] [id number] [address] [place] [address], [place] [address] Mar, [facility] [address] [id number] [address] [place] [address], [place] [address] Mar, [facility] [address] [id number] [address] [place] [address], [place] [address] Mar, [facility] [address] [id number] [address] [place] [address], [place] [address] Mar, [facility] [address] [id number] [address] [place] [address], [place] [address] Feb, [facility] [address] [id number] [address] [place] [address], [place] [address] Feb, [facility] [address] [id number] [address] [place] [address], [place] [address] Feb, [facility] [facility] [address] [id number] [address] [place] [address], [place] [address] Feb, [facility] [address] [id number] [address] [place] [address], [place] [address] Feb, [facility] [address] [id number] [address] [place] [address], [place] [address] Jan, [facility] [address] [id number] [address] [place] [address], [place] [address] Dec, [facility] [address] [id number] [address] [place] [address], [place] [address] Dec, [facility] [address] [id number] [address] [place] [address], [place] [address] Dec, [facility] [address] [id number] [address] [place] [address], [place] [address] Nov, [facility] [address] [id number] [address] [place] [address], [place] [address] Nov, [facility] [address] [id number] [address] [place] [address], [place] [address] Nov, [facility] [address] [id number] [address] [place] [address], [place] [address] Oct, [facility] [address] [id number] [address] [place] [address], [place] [address] Oct, [facility] [address] [id number] [address] [place] [address], [place] [address] Oct, [facility] [address] [id number] [address] [place] [address], [place] [address] Oct, [facility] [address] [id number] [address] [place] [address], [place] [address] September, [facility] [address] [id number] [address] [place] [address], [place] [address] September, [facility] [address] [id number] [address] [place] [address], [place] [address] 30 Aug, 2011 [facility] [address] [id number] [address] [place] [id number] Aug, [facility] [address] [id number] [address] [place] [address], [place] [address] Aug, [facility] [address] [id number] [address] [place] [address], [place] [address] Aug, [facility] [address] [id number] [address] [place] [address], [place] [address] Aug, [facility] [address] [id number] [address] [place] [address], [place] [address] Aug, [facility] [address] [id number] [address] [place] [address], [place] [address] Aug, [facility] [address] [id number] [address] [place] [address], [place] [address] Jul, [facility] [address] [id number] [address] [place] [address], [place] [address] Jul, [facility] [address] [id number] [address] [place] [address], [place] [address] Jul, [facility] [place] [address] [id number] [address] [place] [address], [place] [address] May, [facility] [place] [address] [id number] [address] [place] [address], [place] [address] May, [facility] [address] [id number] [address] [place] [address], [place] [address] May, [facility] [address] [id number] [address] [place] [address], [place] [address] Apr, [facility] [address] [id number] [address] [place] [address], [place] [address] Apr, [facility] [address] [id number] [address] [place] [address], [place] [address] Mar, [facility] [address] [id number] [address] [place] [address], [place] [address] Mar, [facility] [address] [id number] [address] [place] [address] Mar, [facility] [address] [id number] [address] [place] [address] Mar, [facility] [address] [id number] [address] [place] [address] Mar, [facility] [address] [id number] [address] [place] [address] Mar, [facility] [address] [id number] [address] [place] [address] Feb, [facility] [address] [id number] [address] [place] [address] Feb, [facility] [address] [id number] [address] [place] [address] Feb, IMMUNIZATIONS No Known Immunizations SOCIAL HISTORY Never Assessed REASON FOR VISIT PLAN OF CARE VITAL SIGNS Height 72 in 2013-02-01 Weight 257 lbs 2013-02-01 Temperature 98.1 degrees Fahrenheit 2013-02-01 Heart Rate 81 bpm 2013-02-01 Respiratory Rate 20 2013-02-01 Blood pressure systolic 150 mmHg 2013-02-01 Blood pressure diastolic 80 mmHg 2013-02-01 MEDICATIONS Unknown Medications RESULTS No Results PROCEDURES [...] infections x 3 2015 Hospitalization History [facility] - right big t oe removed 2018
--- OUTSIDE RECORDS SUMMARY | 2020-01-03 08:11 | XMS REPORT ---
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 Name Role Phone FERNY SILVERIO Unavailable PROBLEMS Type Condition ICD9-CM Code JZI54-CR Code Onset Dates Condition S tatus SNOMED Code Problem Hypertension I10 Active 8341456 3 Problem Hypoxia R09.02 Active 123837532 Problem COPD (chronic obstructive pulmonary disease) J44.9 Active 84586100 Problem Lumbar radiculopathy, chronic M54.16 Active 432352074 Problem intermediate current use of insulin Z79.4 Active 864174162 Problem Recurrent major depressive disorder, in full remission F33.42 Active 527709846 Problem Hyperlipidemia, unspecified E78.5 Ac tive 49430345 Problem PAD (peripheral artery disease) I73.9 Active 705253344 Problem Type 2 diabetes mellitus with other specified complication E11.69 Active 025069750052 Problem Anxiety F41.9 Active 08566610 Problem Type 2 diabetes mellitus wit h diabetic peripheral angiopathy without gangrene E11.51 Active 188374292 Problem ED (erectile dysfunction) of organic origin N52.9 Active 697817271 Problem Arthritis M19.90 Active 1020481 Problem Morbid (severe) obesity due to excess calories E66 .01 Active 017021340 ALLERGIES No Information ENCOUNTERS Encounter Location Date Diagnosis [facility] [address] [facility] [id number] [address] [place] [phone] Nov, [address] [id number] [address] Oct, Anxiety F41.[address] [id number] [address] Oct, [facility] [address] [facility] [id number] [address] [place] [phone] Oct, [facility] [address] [id number] [address] [place] [id number] 15 Oct, 2019 Back pain M54.9 and Lumbar r adiculopathy, chronic M54.16 [facility] [address] [id number] [address] [place] [phone] 04 Oct, 2019 Lumbar radiculopathy, chroni c M54.16 [facility] [address] [id number] [address] [place] [phone] 03 Oct, 2019 Anxiety F41.[address] [id number] [address] Oct, [place] [address] [id number] [address] [place] [phone] September, Back pain M54.9 and Lumbar r adiculopathy, chronic M54.[address] [id number], [place] [address] September, Anxiety F41.[address] [id number] [place] [address] Aug, [facility] [address] [facility] [id number] [address] [place] [phone] 24 Aug, 2019 Back pain M54.9 and Lumbar r adiculopathy, chronic M54.16 [facility] [address] [id number] [address] [place] [phone] 10 Aug, 2019 Anxiety F41.9 ; Back pain M5 4.9 and Lumbar radiculopathy, chronic M54.16 [facility] [address] [id number] [address] [place] [phone] 09 Aug, 2019 Lumbar radiculopathy, chroni c M54.16 ; Anxiety F41.9 ; Type 2 diabetes mellitus with other specified complication E11.69 and Hypertension I10 [facility] [address] [id number] [address] [place] [phone] Jul, [facility] [address] [id number] [address] [place] [phone] 27 Jul, 2019 Lumbar radiculopathy, chroni c M54.16 ; Back pain M54.9 and Anxiety F41.9 [facility] [address] [id number] [address] [place] [phone] 23 Jul, 2019 [facility] [address] [id number] [address] [place] [phone] 13 Jul, 2019 Anxiety F41.9 [facility] [address] [id number] [address] [place] [phone] 12 Jul, 2019 Anxiety F41.9 [facility] [address] [id number] [address] [place] [id number] 02 Jul, 2019 Back pain M54.9 [facility] [address] [id number] [address] [place] [phone] 02 Jul, 2019 Back pain M54.9 [facility] [address] [id number] [address] [place] [id number] 28 Jul, 2019 Lumbar radiculopathy, chroni c M54.16 [facility] [address] [id number] [address] [place] [id number] 28 Jul, 2019 Back pain M54.9 [facility] [address] [id number] [address] [place] [phone] 07 Jul, 2019 Encounter for Medicare annua [...] diabetes mellitus with other specified complication E11.69 [facility] [address] [id number] [address] [place] [phone] 03 Jul, 2019 Back pain M54.9 [facility] [address] [id number] [address] [place] [id number] Jul, Anxiety F41.9 [facility] [address] [id number] [address] [place] [phone] May, [facility] [address] [id number] [address] [place] [phone] May, Lumbar radiculopathy, chroni c M54.16 [facility] [address] [id number] [address] [place] [phone] May, Back pain M54.9 [facility] [address] [id number] [address] [place] [phone] May, [facility] [address] [facility] [id number] [address] [place] [phone] May, Back pain M54.9 and Anxiety F41.9 [facility] [address] [facility] [id number] [address] [place] [phone] May, [facility] [address] [facility] [id number] [address] [place] [address] May, Type 2 diabetes mellitus wit h diabetic peripheral angiopathy without gangrene E11.51 ; Arthritis M19.90 ; ED (erectile dysfunction) of organic origin N52.9 ; Morbid (severe) obesity due to excess calories E66.01 and Lumbar radiculopathy, chronic M54.16 [facility] [address] [facility] [id number] [address] [place] [phone] May, Diabetes E11.9 [facility] [address] [id number] [address] [place] [phone] Apr, [facility] [address] [facility] [id number] [address] [place] [phone] Apr, Back pain M54.9 [facility] [address] [facility] [id number] [address] [place] [phone] Apr, [facility] [address] [id number] [address] [place] [phone] 13 Apr, 2019 Anxiety F41.9 [facility] [address] [id number] [address] [place] [id number] Apr, Back pain M54.9 and Lumbar r adiculopathy, chronic M54.16 [facility] [address] [id number] [address] [place] [id number] Apr, Back pain M54.9 ; Anxiety F4 1.9 and Lumbar radiculopathy, chronic M54.16 [facility] [address] [id number] [address] [place] [phone] Mar, [facility] [address] [id number] [address] [place] [phone] Mar, [facility] [address] [id number] [address] [place] [id number] Mar, Back pain M54.9 [facility] [address] [id number] [address] [place] [phone] Mar, [facility] [address] [id number] [address] [place] [phone] Feb, Type 2 diabetes mellitus wit h diabetic peripheral angiopathy without gangrene E11.51 ; Lumbar radiculopathy, chronic M54.16 ; ED (erectile dysfunction) of organic origin N52.9 ; Encounter for immunization Z23 ; COPD (chronic obstructive pulmonary disease) J44.9 and Anxiety F41.9 [facility] [address] [id number] [address] [place] [phone] Feb, Back pain M54.9 [facility] [address] [id number] [address] [place] [phone] Feb, [facility] [address] [id number] [address] [place] [phone] Feb, [facility] [address] [id number] [address] [place] [phone] Feb, [facility] [address] [id number] [address] [place] [phone] Feb, Back pain M54.9 [facility] [address] [id number] [address] [place] [phone] Feb, [facility] [address] [id number] [address] [place] [id number] Jan, Anxiety F41.9 [facility] [address] [id number] [address] [place] [phone] Jan, Anxiety F41.9 [facility] [address] [id number] [address] [place] [phone] Jan, [facility] [address] [id number] [address] [place] [phone] Jan, [facility] [address] [id number] [address] [place] [phone] Jan, Back pain M54.9 [facility] [address] [id number] [address] [place] [id number] Jan, [facility] [address] [id number] [address] [place] [phone] Dec, Acute non-recurrent frontal sinusitis J01.10 [facility] [address] [id number] [address] [place] [id number] Dec, Acute non-recurrent frontal sinusitis J01.10 [facility] [address] [id number] [address] [place] [phone] Dec, Type 2 diabetes mellitus wit h diabetic peripheral angiopathy without gangrene E11.51 ; Lumbar radiculopathy, chronic M54.16 ; Recurrent major depressive disorder, in full remission F33.42 and Anxiety F41.9 [facility] [address] [id number] [address] [place] [phone] Dec, [facility] [address] [id number] [address] [place] [phone] Nov, Anxiety F41.9 [facility] [address] [id number] [address] [place] [phone] Nov, [facility] [address] [id number] [address] [place] [phone] Nov, Back pain M54.9 [facility] [address] [id number] [address] [place] [phone] Nov, [facility] [address] [id number] [address] [place] [phone] Nov, Back pain M54.9 [facility] [address] [id number] [address] [place] [phone] Nov, Anxiety F41.9 [facility] [address] [id number] [address] [place] [phone] Nov, [facility] [address] [id number] [address] [place] [phone] Oct, Back pain M54.9 [facility] [address] [id number] [address] [place] [phone] Oct, [facility] [address] [id number] [address] [place] [phone] Oct, [facility] [address] [id number] [address] [place] [phone] Oct, [facility] [address] [id number] [address] [place] [phone] September, Back pain M54.9 [facility] [address] [id number] [address] [place] [id number] September, [facility] [address] [id number] [address] [place] [phone] September, [facility] [address] [id number] [address] [place] [id number] September, [facility] [address] [id number] [address] [place] [phone] Aug, Back pain M54.9 [facility] [address] [id number] [address] [place] [phone] Aug, Anxiety F41.9 [facility] [address] [facility] [id number] [address] [place] [id number] Aug, [facility] [address] [id number] [address] [place] [phone] Aug, Pressure ulcer of other site , stage 3 L89.893 and COPD (chronic obstructive pulmonary disease) J44.9 [facility] [address] [id number] [address] [place] [phone] Aug, History of smoking Z87.891 [place] [address] [facility] [id number] [address] [place] [phone] Jul, Type 2 diabetes mellitus wit h diabetic peripheral angiopathy without gangrene E11.51 [facility] [address] [id number] [address] [place] [phone] Jul, Back pain M54.9 [place] [address] [id number] [address] [place] [phone] Jul, Anxiety F41.9 [facility] [address] [id number] [address] [place] [phone] Jul, [facility] [address] [id number] [address] [place] [phone] Jul, Back pain M54.9 [facility] [address] [id number] [address] [place] [phone] Jul, Back pain M54.9 [facility] [address] [facility] [id number] [address] [place] [id number] Jul, Lumbar radiculopathy, chroni c M54.16 ; Hypertension I10 and Type 2 diabetes mellitus with diabetic peripheral angiopathy without gangrene E11.51 [facility] [address] [id number] [address] [place] [phone] Jul, Back pain M54.9 [facility] [address] [id number] [address] [place] [phone] Jul, Back pain M54.9 and Anxiety F41.9 [facility] [address] [id number] [address] [place] [phone] Jul, [facility] [address] [id number] [address] [place] [phone] May, Back pain M54.9 and Anxiety F41.9 [facility] [address] [id number] [address] [place] [phone] May, [facility] [address] [id number] [address] [place] [phone] Apr, Radiculopathy of lumbar rhiannon on M54.16 ; Back pain M54.9 and Anxiety F41.9 [facility] [address] [id number] [address] [place] [phone] Apr, Diabetes E11.9 ; Muscle spas m M62.838 and Lumbar radiculopathy, chronic M54.16 [facility] [address] [id number] [address] [place] [phone] Apr, [facility] [address] [id number] [address] [place] [phone] Apr, [facility] [address] [id number] [address] [place] [phone] Mar, Back pain M54.9 and Anxiety F41.9 [facility] [address] [id number] [address] [place] [phone] Mar, [facility] [address] [id number] [address] [place] [phone] Mar, [facility] [address] [id number] [address] [place] [phone] 19 Mar, 2018 [facility] [address] [id number] [address] [place] [phone] 19 Mar, 2018 Encounter for immunization Z 23 [facility] [address] [id number] [address] [place] [phone] 31 Feb, 2018 Back pain M54.9 and Anxiety F41.9 [facility] [address] [facility] [id number] [address] [place] [phone] 04 Feb, 2018 Back pain M54.9 and Anxiety F41.9 [facility] [address] [facility] [id number] [address] [place] [phone] 06 Jan, 2018 Back pain M54.9 and Anxiety F41.9 [facility] [address] [facility] [id number] [address] [place] [phone] Jan, [facility] [address] [facility] [id number] [address] [place] [phone] Dec, [facility] [address] [id number] [address] [place] [phone] Dec, Back pain M54.9 and Anxiety F41.9 [facility] [address] [facility] [id number] [address] [place] [phone] Dec, Diabetes E11.9 ; Type 2 diab etes mellitus with diabetic peripheral angiopathy without gangrene E11.51 ; Lumbar radiculopathy, chronic M54.16 ; COPD (chronic obstructive pulmonary disease) J44.9 and Anxiety F41.9 [facility] [address] [facility] [id number] [address] [place] [phone] Dec, Back pain M54.9 and Anxiety F41.9 [facility] [address] [facility] [id number] [address] [place] [phone] Nov, Back pain M54.9 and Anxiety F41.9 [facility] [address] [facility] [id number] [address] [place] [phone] Oct, [facility] [address] [id number] [address] [place] [phone] Oct, Back pain M54.9 and Anxiety F41.9 [facility] [address] [id number] [address] [place] [address] September, Anxiety F41.9 and Back pain M54.9 [place] [address] [id number] [address] [place] [phone] September, Diabetes E11.9 ; Hypertensio n I10 ; COPD (chronic obstructive pulmonary disease) J44.9 and Lumbar radiculopathy, chronic M54.16 [place] [address] [id number] [address] [place] [phone] September, Anxiety F41.9 [place] [address] [id number] [address] [place] [phone] Aug, [place] [address] [id number] [address] [place] [phone] Aug, [place] [address] [id number] [address] [place] [phone] Aug, Anxiety F41.9 and Back pain M54.9 [place] [address] [id number] [address] [place] [phone] Aug, Medicare annual wellness vis it, initial Z00.00 ; COPD (chronic obstructive pulmonary disease) J44.9 ; PAD (peripheral artery disease) I73.9 ; Insulin long-term use Z79.4 ; Hypertension I10 ; Anxiety F41.9 ; Recurrent major depressive disorder, in full remission F33.42 ; Pressure ulcer of other site, stage 3 L89.893 ; Type 2 diabetes mellitus with diabetic peripheral angiopathy without gangrene E11.51 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 [facility] [address] [id number] [address] [place] [phone] Jul, Back pain M54.9 [place] [address] [id number] [address] [place] [phone] Jul, [facility] [address] [id number] [address] [place] [id number] Jul, Anxiety F41.9 and Back pain M54.9 [facility] [address] [id number] [address] [place] [phone] Jul, Diabetes E11.9 [facility] [address] [id number] [address] [place] [phone] May, [facility] [address] [id number] [address] [place] [phone] May, Diabetes E11.9 ; Anxiety F41 .9 ; Back pain M54.9 and COPD (chronic obstructive pulmonary disease) J44.9 [facility] [address] [id number] [address] [place] [phone] May, Back pain M54.9 [facility] [address] [id number] [address] [place] [phone] May, [facility] [address] [id number] [address] [place] [phone] Apr, Back pain M54.9 [facility] [address] [id number] [address] [place] [id number] Mar, Back pain M54.9 [facility] [address] [id number] [address] [place] [phone] Mar, [facility] [address] [id number] [address] [place] [phone] 16 Mar, 2017 [facility] [address] [id number] [address] [place] [phone] 14 Mar, 2017 Radiculopathy of lumbar rhiannon on M54.16 [facility] [address] [id number] [address] [place] [phone] 13 Mar, 2017 [facility] [address] [id number] [address] [place] [id number] 07 Mar, 2017 Encounter for immunization Z 23 and Lumbar radiculopathy, chronic M54.16 [facility] [address] [id number] [address] [place] [phone] Mar, Back pain M54.9 and Anxiety F41.9 [facility] [address] [id number] [address] [place] [phone] Feb, Acute bilateral low back boy n with left-sided sciatica M54.42 and Acute bilateral low back pain with right-sided sciatica M54.41 [facility] [address] [id number] [address] [place] [phone] Feb, [facility] [address] [id number] [address] [place] [id number] Feb, Back pain M54.9 [facility] [address] [id number] [address] [place] [phone] Jan, Back pain M54.9 and Anxiety F41.9 [facility] [address] [id number] [address] [place] [id number] 05 Jan, 2017 Diabetes E11.9 [facility] [address] [id number] [address] [place] [phone] Dec, Diabetes E11.9 ; Back pain M 54.9 ; Anxiety F41.9 and Insulin long- term use Z79.4 [facility] [address] [id number] [address] [place] [phone] Dec, Anxiety F41.9 [facility] [address] [id number] [address] [place] [phone] Dec, Back pain M54.9 [facility] [address] [id number] [address] [place] [phone] Nov, Back pain M54.9 [facility] [address] [id number] [address] [place] [id number] Oct, Back pain M54.9 and Anxiety F41.9 [facility] [address] [id number] [address] [place] [address] September, Back pain M54.9 [facility] [address] [id number] [address] [place] [address] September, Back pain M54.9 and Anxiety F41.9 [facility] [address] [id number] [address] [place] [address] Aug, Diabetes E11.9 ; Anxiety F41 .9 ; Back pain M54.9 and PAD (peripheral artery disease) I73.9 [facility] [address] [id number] [address] [place] [address] Aug, Anxiety F41.9 [facility] [address] [id number] [address] [place] [address] Aug, Back pain M54.9 [facility] [address] [id number] [address] [place] [address] Jul, Back pain M54.9 [facility] [address] [id number] [address] [place] [address] Jul, Back pain M54.9 [facility] [address] [id number] [address] [place] [id number] 23 Jul, 2016 Back pain M54.9 [facility] [address] [id number] [address] [place] [address] 16 Jul, 2016 Dorsalgia M54.9 [facility] [address] [id number] [address] [place] [address] 14 Jul, 2016 [facility] [address] [facility] [id number] [address] [place] [id number] May, Back pain M54.9 [facility] [address] [id number] [address] [place] [address] May, Diabetes E11.9 ; Anxiety F41 .9 ; Port catheter in place Z95.828 ; Encounter for immunization Z23 and Insulin long-term use Z79.4 [facility] [address] [id number] [address] [place] [address] Apr, Back pain M54.9 [facility] [address] [id number] [address] [place] [address] Apr, Back pain M54.9 [facility] [address] [id number] [address] [place] [address] Apr, [facility] [address] [id number] [address] [place] [address] Apr, Back pain M54.9 [facility] [address] [id number] [address] [place] [address] Mar, COPD (chronic obstructive pu lmonary disease) J44.9 [facility] [address] [id number] [address] [place] [id number] Feb, [facility] [address] [id number] [address] [place] [address] Jan, [facility] [address] [id number] [address] [place] [address] Jan, [facility] [address] [id number] [address] [place] [address] Jan, [facility] [address] [id number] [address] [place] [address] Jan, [facility] [address] [id number] [address] [place] [address] Dec, Diabetes E11.9 ; Hypoxia R09 .02 and Back pain M54.9 [facility] [address] [id number] [address] [place] [address] Dec, [facility] [address] [id number] [address] [place] [address] Nov, [facility] [address] [id number] [address] [place] [address] Oct, Anxiety F41.9 [facility] [address] [id number] [address] [place] [address] Oct, Back pain M54.9 [facility] [address] [id number] [address] [place] [address] September, Back pain M54.9 [facility] [address] [id number] [address] [place] [address] September, Diabetes E11.9 [facility] [address] [id number] [address] [place] [phone] September, [facility] [address] [facility] [id number] [address] [place] [phone] September, Diabetes E11.9 ; Insulin sarai g-term use Z79.4 and Back pain M54.9 [facility] [address] [id number] [address] [place] [address] Aug, Back pain M54.9 [facility] [address] [id number] [address] [place] [address] Aug, Back pain M54.9 ; Anxiety F4 1.9 and Arthropathy, unspecified M12.9 [facility] [address] [id number] [address] [place] [address] Jul, Back pain M54.9 [facility] [address] [id number] [address] [place] [id number] Jul, Anxiety F41.9 [facility] [address] [id number] [address] [place] [id number] Jul, Back pain M54.9 [facility] [address] [id number] [address] [place] [phone] Jul, [facility] [address] [facility] [id number] [address] [place] [address] Jul, [facility] [address] [address] May, Back pain M54.9 ; Diabetes E 11.9 ; Insulin long-term use Z79.4 ; COPD (chronic obstructive pulmonary disease) J44.9 and Hypertension I10 [facility] [id number] [place] [address] May, Chronic pain G89.29 [facility] [address] [address] Apr, [facility] [address] [address] Apr, [facility] [address] [address] Mar, [facility] [address] [address] Mar, Encounter for immunization Z 23 and Diabetes E11.9 [facility] [address] [address] Feb, [facility] [address] [id number] Feb, [facility] [address] [id number] Jan, [facility] [address] [address] Jan, [facility] [address] [address] Dec, [facility] [id number] [place] [address] Dec, [facility] [address] [address] Dec, Unspecified arthropathy, sit e unspecified 716.90 and Diabetes mellitus type 2, uncontrolled 250.02 [facility] [id number] [place] [address] Dec, [facility] [address] [id number] [address] [place] [address], [place] [address] Nov, [facility] [address] [id number] [address] [place] [address], [place] [address] Oct, [facility] [address] [id number] [address] [place] [address], [place] [address] September, [facility] [address] [id number] [address] [place] [address], [place] [address] September, [facility] [address] [id number] [address] [place] [address], [place] [address] September, [facility] [address] [id number] [address] [place] [address], [place] [address] September, [facility] [address] [id number] [address] [place] [address], [place] [address] Aug, [facility] [address] [id number] [address] [place] [address], [place] [address] Aug, [facility] [address] [id number] [address] [place] [address], [place] [address] Jul, [facility] [address] [id number] [address] [place] [address], [place] [address] 18 Jul, 2014 [facility] [address] [id number] [address] [place] [address], [place] [address] 16 Jul, 2014 [facility] [address] [id number] [address] [place] [address], [place] [address] 16 Jul, 2014 [facility] [address] [id number] [address] [place] [address], [place] [address] 16 Jul, 2014 [facility] [address] [id number] [address] [place] [address], [place] [address] 16 Jul, 2014 [facility] [address] [id number] [address] [place] [address], [place] [address] 16 Jul, 2014 [facility] [address] [id number] [address] [place] [address], [place] [address] 16 Jul, 2014 [facility] [address] [id number] [address] [place] [address], [place] [address] 16 Jul, 2014 [facility] [address] [id number] [address] [place] [address], [place] [address] 13 Jul, 2014 [facility] [address] [id number] [address] [place] [address], [place] [address] 13 Jul, 2014 [facility] [address] [id number] [address] [place] [address], [place] [address] 09 Jul, 2014 [facility] [address] [id number] [address] [place] [address], [place] [address] 09 Jul, 2014 [facility] [address] [id number] [address] [place] [address], [place] [address] 17 Jul, 2014 [facility] [address] [id number] [address] [place] [address], [place] [address] 17 Jul, 2014 [facility] [address] [id number] [address] [place] [address], [place] [address] 16 Jul, 2014 [facility] [address] [id number] [address] [place] [address], [place] [address] 16 Jul, 2014 [facility] [address] [id number] [address] [place] [address], [place] [address] 16 Jul, 2014 [facility] [address] [id number] [address] [place] [address], [place] [address] 16 Jul, 2014 [facility] [address] [id number] [address] [place] [address], [place] [address] 16 Jul, 2014 [facility] [address] [id number] [address] [place] [address], [place] [address] 16 Jul, 2014 [facility] [address] [id number] [address] [place] [id number] 16 Jul, 2014 [facility] [address] [id number] [address] [place] [address] Jul, 2014 [facility] [address] [id number] [address] [place] [address], [place] [address] Jul, [facility] [address] [id number] [address] [place] [address], [place] [address] Jul, 2014 [facility] [address] [id number] [address] [place] [address], [place] [address] Jul, 2014 [facility] [address] [id number] [address] [place] [address], [place] [address] Jul, 2014 [facility] [address] [id number] [address] [place] [address], [place] [address] Jul, [facility] [address] [id number] [address] [place] [address], [place] [address] Jul, [facility] [address] [id number] [address] [place] [address], [place] [address] May, [facility] [address] [id number] [address] [place] [address], [place] [address] May, [facility] [address] [id number] [address] [place] [address], [place] [address] May, [facility] [address] [id number] [address] [place] [address], [place] [address] May, [facility] [address] [id number] [address] [place] [address], [place] [address] May, [facility] [address] [id number] [address] [place] [address] May, [facility] [address] [id number] [address] [place] [address], [place] [address] May, [facility] [address] [id number] [address] [place] [address], [place] [address] May, [facility] [address] [id number] [address] [place] [address] May, [facility] [address] [id number] [address] [place] [address], [place] [address] May, [facility] [address] [id number] [address] [place] [address], [place] [address] Apr, [facility] [address] [id number] [address] [place] [address], [place] [address] Apr, [facility] [address] [id number] [address] [place] [address], [place] [address] Apr, [facility] [address] [id number] [address] [place] [address], [place] [address] Apr, [facility] [address] [id number] [address] [place] [address], [place] [address] Apr, [facility] [address] [id number] [address] [place] [address], [place] [address] Apr, [facility] [address] [id number] [address] [place] [address], [place] [address] Mar, [facility] [address] [id number] [address] [place] [address], [place] [address] Mar, [facility] [address] [id number] [address] [place] [address], [place] [address] Mar, [facility] [address] [id number] [address] [place] [address], [place] [address] Mar, [facility] [address] [id number] [address] [place] [address], [place] [address] Mar, [facility] [address] [id number] [address] [place] [address], [place] [address] Mar, [facility] [address] [id number] [address] [place] [address], [place] [address] Mar, [facility] [address] [id number] [address] [place] [address], [place] [address] Mar, [facility] [address] [id number] [address] [place] [address], [place] [address] Mar, [facility] [address] [id number] [address] [place] [address], [place] [address] Mar, [facility] [address] [id number] [address] [place] [address], [place] [address] Mar, [facility] [address] [id number] [address] [place] [address], [place] [address] Feb, [facility] [address] [id number] [address] [place] [address], [place] [address] Feb, [facility] [address] [id number] [address] [place] [address], [place] [address] Feb, [facility] [address] [id number] [address] [place] [address], [place] [address] Feb, [facility] [address] [id number] [address] [place] [address], [place] [address] Feb, [facility] [address] [id number] [address] [place] [address], [place] [address] Feb, [facility] [address] [id number] [address] [place] [address], [place] [address] Feb, [facility] [address] [id number] [address] [place] [address], [place] [address] Feb, [facility] [address] [id number] [address] [place] [address], [place] [address] Feb, [facility] [address] [id number] [address] [place] [address], [place] [address] Feb, [facility] [address] [id number] [address] [place] [address], [place] [address] Jan, [facility] [address] [id number] [address] [place] [address], [place] [address] 22 Jan, 2014 [facility] [address] [id number] [address] [place] [address], [place] [address] 16 Jan, 2014 [facility] [address] [id number] [address] [place] [address], [place] [address] 16 Jan, 2014 [facility] [address] [id number] [address] [place] [address], [place] [address] 12 Jan, 2014 [facility] [address] [id number] [address] [place] [address], [place] [address] Jan, [facility] [address] [id number] [address] [place] [address], [place] [address] Jan, [facility] [address] [id number] [address] [place] [address], [place] [address] Dec, [facility] [address] [id number] [address] [place] [address], [place] [address] Dec, [facility] [address] [id number] [address] [place] [address], [place] [address] Dec, [facility] [address] [id number] [address] [place] [address], [place] [address] Dec, [facility] [address] [id number] [address] [place] [address], [place] [address] Dec, [facility] [address] [id number] [address] [place] [address], [place] [address] Dec, [facility] [address] [id number] [address] [place] [address], [place] [address] Dec, [facility] [address] [id number] [address] [place] [address], [place] [address] Dec, [facility] [address] [id number] [address] [place] [address], [place] [address] Oct, [facility] [address] [id number] [address] [place] [address], [place] [address] Oct, [facility] [address] [id number] [address] [place] [address], [place] [address] September, [facility] [address] [id number] [address] [place] [address], [place] [address] September, [facility] [address] [id number] [address] [place] [address], [place] [address] September, [facility] [address] [id number] [address] [place] [address], [place] [address] September, [facility] [address] [id number] [address] [place] [address], [place] [address] September, [facility] [address] [id number] [address] [place] [address], [place] [address] September, [facility] [address] [id number] [address] [place] [address], [place] [address] September, [facility] [address] [id number] [address] [place] [address], [place] [address] Aug, [facility] [address] [id number] [address] [place] [address], [place] [address] Aug, [facility] [address] [id number] [address] [place] [address], [place] [address] Jul, [facility] [address] [id number] [address] [place] [address], [place] [address] Jul, [facility] [address] [id number] [address] [place] [address], [place] [address] Jul, [facility] [address] [id number] [address] [place] [address], [place] [address] Jul, [facility] [address] [id number] [address] [place] [address], [place] [address] Jul, [facility] [address] [id number] [address] [place] [address], [place] [address] Jul, [facility] [address] [id number] [address] [place] [address], [place] [address] Jul, [facility] [address] [id number] [address] [place] [address], [place] [address] Jul, [facility] [address] [id number] [address] [place] [address], [place] [address] 15 May, 2013 [facility] [address] [id number] [address] [place] [address], [place] [address] 15 May, 2013 [facility] [address] [id number] [address] [place] [address], [place] [address] 14 May, 2013 [facility] [address] [id number] [address] [place] [address], [place] [address] 14 May, 2013 [facility] [address] [id number] [address] [place] [address], [place] [address] 18 Apr, 2013 [facility] [address] [id number] [address] [place] [address], [place] [address] Mar, [facility] [address] [id number] [address] [place] [address], [place] [address] Mar, [facility] [address] [id number] [address] [place] [address], [place] [address] Mar, [facility] [address] [id number] [address] [place] [address], [place] [address] 20 Mar, 2013 [facility] [address] [id number] [address] [place] [address], [place] [address] 18 Mar, 2013 [facility] [address] [id number] [address] [place] [address], [place] [address] 18 Mar, 2013 [facility] [address] [id number] [address] [place] [address], [place] [address] 18 Mar, 2013 [facility] [address] [id number] [address] [place] [address], [place] [address] 18 Mar, 2013 [facility] [address] [id number] [address] [place] [address], [place] [address] 11 Mar, 2013 [facility] [address] [id number] [address] [place] [address], [place] [address] Mar, [facility] [address] [id number] [address] [place] [address], [place] [address] Mar, [facility] [address] [id number] [address] [place] [address], [place] [address] Mar, [facility] [address] [id number] [address] [place] [address], [place] [address] Feb, [facility] [address] [id number] [address] [place] [address], [place] [address] Feb, [facility] [address] [id number] [address] [place] [address], [place] [address] Feb, [facility] [address] [id number] [address] [place] [address], [place] [address] Feb, [facility] [address] [id number] [address] [place] [address], [place] [address] Feb, [facility] [address] [id number] [address] [place] [address], [place] [address] Jan, [facility] [address] [id number] [address] [place] [address], [place] [address] Dec, [facility] [address] [id number] [address] [place] [address], [place] [address] Dec, [facility] [address] [id number] [address] [place] [address], [place] [address] Dec, [facility] [address] [id number] [address] [place] [address], [place] [address] Nov, [facility] [address] [id number] [address] [place] [address], [place] [address] Nov, [facility] [address] [id number] [address] [place] [address], [place] [address] Nov, [facility] [address] [id number] [address] [place] [address], [place] [address] Oct, [facility] [address] [id number] [address] [place] [address], [place] [address] Oct, [facility] [address] [id number] [address] [place] [address], [place] [address] Oct, [facility] [address] [id number] [address] [place] [address], [place] [address] September, [facility] [address] [id number] [address] [place] [address], [place] [address] September, [facility] [address] [id number] [address] [place] [address], [place] [address] September, [facility] [address] [id number] [address] [place] [address], [place] [address] September, [facility] [address] [id number] [address] [place] [address], [place] [address] September, [facility] [address] [id number] [address] [place] [address], [place] [address] Aug, [facility] [address] [id number] [address] [place] [address], [place] [address] Aug, [facility] [address] [id number] [address] [place] [address], [place] [address] Aug, [facility] [address] [id number] [address] [place] [address], [place] [address] Jul, [facility] [address] [id number] [address] [place] [address], [place] [address] Jul, [facility] [address] [id number] [address] [place] [address], [place] [address] Jul, [facility] [address] [id number] [address] [place] [address], [place] [address] Jul, [facility] [address] [id number] [address] [place] [address], [place] [address] Jul, [facility] [address] [id number] [address] [place] [address], [place] [address] Jul, [facility] [address] [id number] [address] [place] [address], [place] [address] Jul, [facility] [address] [id number] [address] [place] [address], [place] [address] 14 May, 2012 [facility] [address] [id number] [address] [place] [address], [place] [address] 08 May, 2012 [facility] [address] [id number] [address] [place] [address], [place] [address] May, [facility] [address] [id number] [address] [place] [address], [place] [address] Apr, [facility] [address] [id number] [address] [place] [address], [place] [address] Apr, [facility] [address] [id number] [address] [place] [address], [place] [address] Apr, [facility] [address] [id number] [address] [place] [address], [place] [address] Apr, [facility] [address] [id number] [address] [place] [address], [place] [address] Apr, [facility] [address] [id number] [address] [place] [address], [place] [address] Mar, [facility] [address] [id number] [address] [place] [address], [place] [address] Mar, [facility] [address] [id number] [address] [place] [address], [place] [address] Mar, [facility] [address] [id number] [address] [place] [address], [place] [address] Mar, [facility] [address] [id number] [address] [place] [address], [place] [address] Feb, [facility] [address] [id number] [address] [place] [address], [place] [address] Feb, [facility] [address] [id number] [address] [place] [address], [place] [address] Feb, [facility] [address] [id number] [address] [place] [address] [address] Feb, [facility] [address] [id number] [address] [place] [address], [place] [address] Feb, [facility] [address] [id number] [address] [place] [address], [place] [address] Jan, [facility] [address] [id number] [address] [place] [address], [place] [address] Dec, [facility] [address] [id number] [address] [place] [address], [place] [address] Dec, [facility] [address] [id number] [address] [place] [address], [place] [address] Dec, [facility] [address] [id number] [address] [place] [address], [place] [address] Nov, [facility] [address] [id number] [address] [place] [address], [place] [address] Nov, [facility] [address] [id number] [address] [place] [address], [place] [address] Nov, [facility] [address] [id number] [address] [place] [address], [place] [address] Oct, [facility] [address] [id number] [address] [place] [address], [place] [address] Oct, [facility] [address] [id number] [address] [place] [address], [place] [address] Oct, [facility] [address] [id number] [address] [place] [address], [place] [address] Oct, [facility] [address] [id number] [address] [place] [address], [place] [address] September, [facility] [address] [id number] [address] [place] [address], [place] [address] September, [facility] [address] [id number] [address] [place] [address], [place] [address] Aug, [facility] [address] [id number] [address] [place] [address], [place] [address] Aug, [facility] [address] [id number] [address] [place] [address], [place] [address] Aug, [facility] [address] [id number] [address] [place] [address], [place] [address] Aug, [facility] [address] [id number] [address] [place] [address], [place] [address] Aug, [facility] [address] [id number] [address] [place] [address], [place] [address] Aug, [facility] [address] [id number] [address] [place] [address], [place] [address] Aug, [facility] [address] [id number] [address] [place] [address], [place] [address] Jul, [facility] [address] [id number] [address] [place] [address], [place] [address] Jul, [facility] [address] [id number] [address] [place] [address], [place] [address] Jul, [facility] [address] [id number] [address] [place] [address], [place] [address] May, [facility] [address] [id number] [address] [place] [address], [place] [address] May, [facility] [address] [id number] [address] [place] [address], [place] [address] May, [facility] [address] [id number] [address] [place] [address], [place] [address] Apr, [facility] [address] [id number] [address] [place] [address], [place] [address] Apr, [facility] [address] [id number] [address] [place] [address], [place] [address] Mar, [facility] [address] [id number] [address] [place] [address], [place] [address] Mar, [facility] [address] [id number] [address] [place] [address] Mar, [facility] [address] [id number] [address] [place] [address] Mar, [facility] [address] [id number] [address] [place] [address] Mar, [facility] [address] [id number] [address] [place] [address] Mar, [facility] [address] [id number] [address] [place] [address] Feb, [facility] [address] [id number] [address] [place] [address] Feb, [facility] [address] [id number] [address] [place] [address] Feb, IMMUNIZATIONS No Known Immunizations SOCIAL HISTORY [...] foot infections x 3 2015 Hospitalization History [facility] - right big t oe removed 2018
--- OUTSIDE RECORDS SUMMARY | 2020-01-03 08:12 | XMS REPORT ---
Author Author Tra SILVERIO Organization [facility] Address [address] [place] [address] Care Team Providers Care Principal Quality Engineer Name Role Phone FERNY SILVERIO Unavailable PROBLEMS Type Condition ICD9-CM Code ETI39-JD Code Onset Dates Condition S tatus SNOMED Code Problem Hypertension I10 Active 9460311 3 Problem Hypoxia R09.02 Active 201417863 Problem COPD (chronic obstructive pulmonary disease) J44.9 Active 30573766 Problem Lumbar radiculopathy, chronic M54.16 Active 811872349 Problem retirement current use of insulin Z79.4 Active 464155982 Problem Recurrent major depressive disorder, in full remission F33.42 Active 234219236 Problem Hyperlipidemia, unspecified E78.5 Ac tive 86434202 Problem PAD (peripheral artery disease) I73.9 Active 676413756 Problem Type 2 diabetes mellitus with other specified complication E11.69 Active 608975715391 Problem Anxiety F41.9 Active 08671076 Problem Type 2 diabetes mellitus wit h diabetic peripheral angiopathy without gangrene E11.51 Active 093601554 Problem ED (erectile dysfunction) of organic origin N52.9 Active 936720272 Problem Arthritis M19.90 Active 4190201 Problem Morbid (severe) obesity due to excess calories E66 .01 Active 294282296 ALLERGIES No Information ENCOUNTERS Encounter Location Date Diagnosis [address] [id number] [place] [address] Oct, [facility] [address] [facility] [id number] [address] [place] [address] Oct, [facility] [address] [facility] [id number] [address] [place] [address] Oct, Back pain M54.9 and Lumbar r adiculopathy, chronic M54.16 [facility] [address] [facility] [id number] [address] [place] [address] 04 Oct, 2019 Lumbar radiculopathy, chroni c M54.16 [facility] [address] [id number] [address] [place] [address] Oct, Anxiety F41.[address] [id number] [address] Oct, [facility] [address] [id number] [address] [place] [address] September, Back pain M54.9 and Lumbar r adiculopathy, chronic M54.[address] [id number] [address] September, Anxiety F41.9 [place] [address] [facility] [id number] [place] [address] Aug, [facility] [address] [id number] [address] [place] [address] Aug, Back pain M54.9 and Lumbar r adiculopathy, chronic M54.16 [facility] [address] [id number] [address] [place] [address] Aug, Anxiety F41.9 ; Back pain M5 4.9 and Lumbar radiculopathy, chronic M54.16 [facility] [address] [id number] [address] [place] [address] Aug, Lumbar radiculopathy, chroni c M54.16 ; Anxiety F41.9 ; Type 2 diabetes mellitus with other specified complication E11.69 and Hypertension I10 [facility] [address] [id number] [address] [place] [address] Jul, [facility] [address] [id number] [address] [place] [address] Jul, Lumbar radiculopathy, chroni c M54.16 ; Back pain M54.9 and Anxiety F41.9 [facility] [address] [id number] [address] [place] [address] Jul, [facility] [address] [facility] [id number] [address] [place] [address] Jul, Anxiety F41.9 [facility] [address] [facility] [id number] [address] [place] [address] Jul, Anxiety F41.9 [facility] [address] [facility] [id number] [address] [place] [address] Jul, Back pain M54.9 [facility] [address] [facility] [id number] [address] [place] [address] Jul, Back pain M54.9 [place] [address] [address] [facility] [id number] [address] [place] [address] Jul, Lumbar radiculopathy, chroni c M54.16 [place] [address] [address] [facility] [id number] [address] [place] [address] Jul, Back pain M54.9 [facility] [address] [facility] [id number] [address] [place] [address] 07 Jul, 2019 Encounter for Medicare annua [...] diabetes mellitus with other specified complication E11.69 [facility] [address] [facility] [id number] [address] [place] [address] Jul, Back pain M54.9 [facility] [address] [facility] [id number] [address] [place] [address] Jul, Anxiety F41.9 [facility] [address] [facility] [id number] [address] [place] [address] May, [facility] [address] [id number] [address] [place] [address] May, Lumbar radiculopathy, chroni c M54.16 [facility] [address] [id number] [address] [place] [address] May, Back pain M54.9 [facility] [address] [id number] [address] [place] [address] May, [facility] [address] [id number] [address] [place] [address] May, Back pain M54.9 and Anxiety F41.9 [facility] [address] [id number] [address] [place] [address] May, [facility] [address] [facility] [id number] [address] [place] [address] May, Type 2 diabetes mellitus wit h diabetic peripheral angiopathy without gangrene E11.51 ; Arthritis M19.90 ; ED (erectile dysfunction) of organic origin N52.9 ; Morbid (severe) obesity due to excess calories E66.01 and Lumbar radiculopathy, chronic M54.16 [facility] [address] [id number] [address] [place] [address] May, Diabetes E11.9 [facility] [address] [id number] [address] [place] [address] Apr, [facility] [address] [facility] [id number] [address] [place] [address] Apr, Back pain M54.9 [facility] [address] [id number] [address] [place] [address] Apr, [facility] [address] [facility] [id number] [address] [place] [address] Apr, Anxiety F41.9 [facility] [address] [facility] [id number] [address] [place] [address] Apr, Back pain M54.9 and Lumbar r adiculopathy, chronic M54.16 [facility] [address] [id number] [address] [place] [address] Apr, Back pain M54.9 ; Anxiety F4 1.9 and Lumbar radiculopathy, chronic M54.16 [facility] [address] [id number] [address] [place] [address] Mar, [facility] [address] [id number] [address] [place] [address] Mar, [facility] [address] [id number] [address] [place] [address] Mar, Back pain M54.9 [facility] [address] [id number] [address] [place] [address] Mar, [facility] [address] [id number] [address] [place] [address] Feb, Type 2 diabetes mellitus wit h diabetic peripheral angiopathy without gangrene E11.51 ; Lumbar radiculopathy, chronic M54.16 ; ED (erectile dysfunction) of organic origin N52.9 ; Encounter for immunization Z23 ; COPD (chronic obstructive pulmonary disease) J44.9 and Anxiety F41.9 [facility] [address] [id number] [address] [place] [address] Feb, Back pain M54.9 [facility] [address] [id number] [address] [place] [address] Feb, [facility] [address] [id number] [address] [place] [address] Feb, [facility] [address] [id number] [address] [place] [address] Feb, [facility] [address] [id number] [address] [place] [address] Feb, Back pain M54.9 [facility] [address] [id number] [address] [place] [address] Feb, [facility] [address] [id number] [address] [place] [address] Jan, Anxiety F41.9 [facility] [address] [id number] [address] [place] [address] Jan, Anxiety F41.9 [facility] [address] [id number] [address] [place] [address] Jan, [facility] [address] [id number] [address] [place] [address] Jan, [facility] [address] [id number] [address] [place] [address] Jan, Back pain M54.9 [facility] [address] [id number] [address] [place] [address] Jan, [facility] [address] [id number] [address] [place] [address] Dec, Acute non-recurrent frontal sinusitis J01.10 [facility] [address] [id number] [address] [place] [address] Dec, Acute non-recurrent frontal sinusitis J01.10 [facility] [address] [id number] [address] [place] [address] Dec, Type 2 diabetes mellitus wit h diabetic peripheral angiopathy without gangrene E11.51 ; Lumbar radiculopathy, chronic M54.16 ; Recurrent major depressive disorder, in full remission F33.42 and Anxiety F41.9 [facility] [address] [id number] [address] [place] [address] Dec, [facility] [address] [id number] [address] [place] [address] Nov, Anxiety F41.9 [facility] [address] [id number] [address] [place] [address] Nov, [facility] [address] [id number] [address] [place] [address] 30 Nov, 2018 Back pain M54.9 [facility] [address] [id number] [address] [place] [address] Nov, [facility] [address] [id number] [address] [place] [address] Nov, Back pain M54.9 [facility] [address] [id number] [address] [place] [address] Nov, Anxiety F41.9 [facility] [address] [id number] [address] [place] [address] Nov, [facility] [address] [id number] [address] [place] [address] Oct, Back pain M54.9 [facility] [address] [id number] [address] [place] [address] Oct, [facility] [address] [id number] [address] [place] [address] Oct, [facility] [address] [id number] [address] [place] [address] Oct, [facility] [address] [id number] [address] [place] [address] September, Back pain M54.9 [facility] [address] [id number] [address] [place] [address] September, [facility] [address] [id number] [address] [place] [address] September, [facility] [address] [id number] [address] [place] [address] September, [facility] [address] [id number] [address] [place] [address] Aug, Back pain M54.9 [facility] [address] [id number] [address] [place] [address] Aug, Anxiety F41.9 [facility] [address] [id number] [address] [place] [address] Aug, [facility] [address] [id number] [address] [place] [address] Aug, Pressure ulcer of other site , stage 3 L89.893 and COPD (chronic obstructive pulmonary disease) J44.9 [facility] [address] [id number] [address] [place] [address] Aug, History of smoking Z87.891 [facility] [address] [id number] [address] [place] [address] Jul, Type 2 diabetes mellitus wit h diabetic peripheral angiopathy without gangrene E11.51 [facility] [address] [id number] [address] [place] [address] Jul, Back pain M54.9 [facility] [address] [id number] [address] [place] [address] Jul, Anxiety F41.9 [facility] [address] [id number] [address] [place] [id number] Jul, [place] [address] [id number] [address] [place] [address] Jul, Back pain M54.9 [facility] [address] [id number] [address] [place] [address] Jul, Back pain M54.9 [place] [address] [id number] [address] [place] [address] Jul, Lumbar radiculopathy, chroni c M54.16 ; Hypertension I10 and Type 2 diabetes mellitus with diabetic peripheral angiopathy without gangrene E11.51 [facility] [address] [id number] [address] [place] [address] Jul, Back pain M54.9 [facility] [address] [id number] [address] [place] [address] Jul, Back pain M54.9 and Anxiety F41.9 [facility] [address] [id number] [address] [place] [address] Jul, [facility] [address] [id number] [address] [place] [address] May, Back pain M54.9 and Anxiety F41.9 [facility] [address] [facility] [id number] [address] [place] [address] May, [facility] [address] [id number] [address] [place] [address] Apr, Radiculopathy of lumbar rhiannon on M54.16 ; Back pain M54.9 and Anxiety F41.9 [facility] [address] [facility] [id number] [address] [place] [address] Apr, Diabetes E11.9 ; Muscle spas m M62.838 and Lumbar radiculopathy, chronic M54.16 [facility] [address] [id number] [address] [place] [address] Apr, [facility] [address] [id number] [address] [place] [address] Apr, [facility] [address] [facility] [id number] [address] [place] [address] Mar, Back pain M54.9 and Anxiety F41.9 [facility] [address] [id number] [address] [place] [address] Mar, [facility] [address] [id number] [address] [place] [phone] Mar, [facility] [address] [id number] [address] [place] [address] Mar, [facility] [address] [facility] [id number] [address] [place] [address] Mar, Encounter for immunization Z 23 [facility] [address] [id number] [address] [place] [address] 31 Feb, 2018 Back pain M54.9 and Anxiety F41.9 [facility] [address] [id number] [address] [place] [address] 04 Feb, 2018 Back pain M54.9 and Anxiety F41.9 [facility] [address] [id number] [address] [place] [address] Jan, Back pain M54.9 and Anxiety F41.9 [facility] [address] [id number] [address] [place] [address] Jan, [facility] [address] [id number] [address] [place] [address] Dec, [facility] [address] [id number] [address] [place] [address] Dec, Back pain M54.9 and Anxiety F41.9 [facility] [address] [id number] [address] [place] [address] Dec, Diabetes E11.9 ; Type 2 diab etes mellitus with diabetic peripheral angiopathy without gangrene E11.51 ; Lumbar radiculopathy, chronic M54.16 ; COPD (chronic obstructive pulmonary disease) J44.9 and Anxiety F41.9 [facility] [address] [facility] [id number] [address] [place] [address] Dec, Back pain M54.9 and Anxiety F41.9 [facility] [address] [id number] [address] [place] [address] Nov, Back pain M54.9 and Anxiety F41.9 [facility] [address] [id number] [address] [place] [address] 18 Oct, 2017 [facility] [address] [facility] [id number] [address] [place] [address] 2017 Back pain M54.9 and Anxiety F41.9 [facility] [address] [facility] [id number] [address] [place] [address] September, Anxiety F41.9 and Back pain M54.9 [facility] [address] [id number] [address] [place] [address] September, Diabetes E11.9 ; Hypertensio n I10 ; COPD (chronic obstructive pulmonary disease) J44.9 and Lumbar radiculopathy, chronic M54.16 [place] [address] [id number] [address] [place] [address] September, Anxiety F41.9 [place] [address] [id number] [address] [place] [address] Aug, [place] [address] [id number] [address] [place] [address] Aug, [place] [address] [facility] [id number] [address] [place] [address] Aug, Anxiety F41.9 and Back pain M54.9 [place] [address] [id number] [address] [place] [address] Aug, Medicare annual wellness vis it, initial [...] and retirement current use of insulin Z79.4 [place] [address] [id number] [address] [place] [address] Jul, Back pain M54.9 [place] [address] [id number] [address] [place] [address] Jul, [facility] [address] [id number] [address] [place] [address] Jul, Anxiety F41.9 and Back pain M54.9 [place] [address] [id number] [address] [place] [address] Jul, Diabetes E11.9 [facility] [address] [id number] [address] [place] [address] May, [facility] [address] [id number] [address] [place] [address] May, Diabetes E11.9 ; Anxiety F41 .9 ; Back pain M54.9 and COPD (chronic obstructive pulmonary disease) J44.9 [facility] [address] [id number] [address] [place] [address] May, Back pain M54.9 [facility] [address] [id number] [address] [place] [address] May, [facility] [address] [id number] [address] [place] [address] Apr, Back pain M54.9 [facility] [address] [id number] [address] [place] [address] Mar, Back pain M54.9 [facility] [address] [id number] [address] [place] [address] Mar, [facility] [address] [id number] [address] [place] [address] Mar, [facility] [address] [id number] [address] [place] [id number] 14 Mar, 2017 Radiculopathy of lumbar rhiannon on M54.16 [facility] [address] [id number] [address] [place] [address] 13 Mar, 2017 [facility] [address] [facility] [id number] [address] [place] [id number] 07 Mar, 2017 Encounter for immunization Z 23 and Lumbar radiculopathy, chronic M54.16 [facility] [address] [id number] [address] [place] [address] Mar, Back pain M54.9 and Anxiety F41.9 [facility] [address] [id number] [address] [place] [id number] 10 Feb, 2017 Acute bilateral low back boy n with left-sided sciatica M54.42 and Acute bilateral low back pain with right-sided sciatica M54.41 [facility] [address] [id number] [address] [place] [address] Feb, [facility] [address] [id number] [address] [place] [address] Feb, Back pain M54.9 [facility] [address] [id number] [address] [place] [address] 05 Jan, 2017 Back pain M54.9 and Anxiety F41.9 [facility] [address] [id number] [address] [place] [id number] 05 Jan, 2017 Diabetes E11.9 [facility] [address] [id number] [address] [place] [id number] Dec, Diabetes E11.9 ; Back pain M 54.9 ; Anxiety F41.9 and Insulin long- term use Z79.4 [facility] [address] [id number] [address] [place] [id number] Dec, Anxiety F41.9 [facility] [address] [id number] [address] [place] [id number] Dec, Back pain M54.9 [facility] [address] [id number] [address] [place] [id number] Nov, Back pain M54.9 [facility] [address] [id number] [address] [place] [id number] Oct, Back pain M54.9 and Anxiety F41.9 [facility] [address] [id number] [address] [place] [id number] September, Back pain M54.9 [facility] [address] [id number] [address] [place] [id number] September, Back pain M54.9 and Anxiety F41.9 [facility] [address] [id number] [address] [place] [id number] Aug, Diabetes E11.9 ; Anxiety F41 .9 ; Back pain M54.9 and PAD (peripheral artery disease) I73.9 [facility] [address] [id number] [address] [place] [id number] Aug, Anxiety F41.9 [facility] [address] [id number] [address] [place] [id number] Aug, Back pain M54.9 [facility] [address] [id number] [address] [place] [id number] Jul, Back pain M54.9 [facility] [address] [id number] [address] [place] [address] Jul, Back pain M54.9 [facility] [address] [id number] [address] [place] [address] Jul, Back pain M54.9 [facility] [address] [id number] [address] [place] [address] Jul, Dorsalgia M54.9 [facility] [address] [id number] [address] [place] [address] Jul, [facility] [address] [id number] [address] [place] [address] May, Back pain M54.9 [facility] [address] [id number] [address] [place] [address] May, Diabetes E11.9 ; Anxiety F41 .9 ; Port catheter in place Z95.828 ; Encounter for immunization Z23 and Insulin long-term use Z79.4 [facility] [address] [id number] [address] [place] [address] Apr, Back pain M54.9 [facility] [address] [id number] [address] [place] [address] Apr, Back pain M54.9 [facility] [address] [id number] [address] [place] [address] Apr, [facility] [address] [id number] [address] [place] [address] Apr, Back pain M54.9 [facility] [address] [id number] [address] [place] [address] Mar, COPD (chronic obstructive pu lmonary disease) J44.9 [facility] [address] [id number] [address] [place] [address] Feb, [facility] [address] [id number] [address] [place] [address] 30 Jan, 2016 [facility] [address] [id number] [address] [place] [address] Jan, [facility] [address] [id number] [address] [place] [address] Jan, [facility] [address] [id number] [address] [place] [address] Jan, [facility] [address] [id number] [address] [place] [address] Dec, Diabetes E11.9 ; Hypoxia R09 .02 and Back pain M54.9 [facility] [address] [id number] [address] [place] [address] Dec, [facility] [address] [id number] [address] [place] [address] Nov, [facility] [address] [id number] [address] [place] [address] Oct, Anxiety F41.9 [facility] [address] [id number] [address] [place] [address] Oct, Back pain M54.9 [facility] [address] [id number] [address] [place] [address] September, Back pain M54.9 [facility] [address] [facility] [id number] [address] [place] [address] September, Diabetes E11.9 [facility] [address] [facility] [id number] [address] [place] [address] September, [facility] [address] [facility] [id number] [address] [place] [address] September, Diabetes E11.9 ; Insulin sarai g-term use Z79.4 and Back pain M54.9 [facility] [address] [facility] [id number] [address] [place] [address] Aug, Back pain M54.9 [facility] [address] [facility] [id number] [address] [place] [address] Aug, Back pain M54.9 ; Anxiety F4 1.9 and Arthropathy, unspecified M12.9 [facility] [address] [facility] [id number] [address] [place] [address] Jul, Back pain M54.9 [facility] [address] [facility] [id number] [address] [place] [address] Jul, Anxiety F41.9 [facility] [address] [facility] [id number] [address] [place] [address] Jul, Back pain M54.9 [facility] [address] [facility] [id number] [address] [place] [address] Jul, [facility] [address] [facility] [id number] [address] [place] [address] Jul, [facility] [address] [facility] [id number] [address] [place] [address] May, Back pain M54.9 ; Diabetes E 11.9 ; Insulin long-term use Z79.4 ; COPD (chronic obstructive pulmonary disease) J44.9 and Hypertension I10 [facility] [address] [facility] [id number] [address] [place] [address] May, Chronic pain G89.29 [facility] [address] [id number] [address] [place] [address] Apr, [facility] [address] [id number] [address] [place] [address] Apr, [facility] [address] [facility] [id number] [address] [place] [address] Mar, [facility] [address] [facility] [id number] [address] [place] [address] Mar, Encounter for immunization Z 23 and Diabetes E11.9 [facility] [address] [id number] [address] [place] [address] Feb, [facility] [address] [facility] [id number] [address] [place] [address] Feb, [facility] [address] [facility] [id number] [address] [place] [address] Jan, [facility] [address] [id number] [address] [place] [address] Jan, [facility] [address] [facility] [id number] [address] [place] [address] Dec, [facility] [address] [facility] [id number] [address] [place] [address] Dec, [facility] [address] [facility] [id number] [address] [place] [address] Dec, Unspecified arthropathy, sit e unspecified 716.90 and Diabetes mellitus type 2, uncontrolled 250.02 [facility] [address] [id number] [address] [place] [address] Dec, [facility] [address] [facility] [id number] [address] [place] [address] Nov, [facility] [address] [place] [id number] [address] [place] [address] Oct, [facility] [address] [id number] [address] [place] [address], [place] [address] September, [facility] [address] [id number] [address] [place] [address], [place] [address] September, [facility] [address] [id number] [address] [place] [address], [place] [address] September, [facility] [address] [id number] [address] [place] [address], [place] [address] September, [facility] [address] [id number] [address] [place] [address], [place] [address] Aug, [facility] [address] [id number] [address] [place] [address], [place] [address] 13 Aug, 2014 [facility] [address] [id number] [address] [place] [address], [place] [address] 18 Jul, 2014 [facility] [address] [id number] [address] [place] [address], [place] [address] 18 Jul, 2014 [facility] [address] [id number] [address] [place] [address], [place] [address] 16 Jul, 2014 [facility] [address] [id number] [address] [place] [address], [place] [address] 16 Jul, 2014 [facility] [address] [id number] [address] [place] [address], [place] [address] 16 Jul, 2014 [facility] [address] [id number] [address] [place] [address], [place] [address] 16 Jul, 2014 [facility] [address] [id number] [address] [place] [address], [place] [address] 16 Jul, 2014 [facility] [address] [id number] [address] [place] [address], [place] [address] 16 Jul, 2014 [facility] [address] [id number] [address] [place] [address], [place] [address] 16 Jul, 2014 [facility] [address] [id number] [address] [place] [address], [place] [address] 13 Jul, 2014 [facility] [address] [id number] [address] [place] [address], [place] [address] 13 Jul, 2014 [facility] [address] [id number] [address] [place] [address], [place] [address] 09 Jul, 2014 [facility] [address] [id number] [address] [place] [address], [place] [address] 09 Jul, 2014 [facility] [address] [id number] [address] [place] [address], [place] [address] 17 Jul, 2014 [facility] [address] [id number] [address] [place] [address], [place] [address] 17 Jul, 2014 [facility] [address] [id number] [address] [place] [address], [place] [address] 16 Jul, 2014 [facility] [address] [id number] [address] [place] [address], [place] [address] 16 Jul, 2014 [facility] [address] [id number] [address] [place] [address], [place] [address] 16 Jul, 2014 [facility] [address] [id number] [address] [place] [address], [place] [address] 16 Jul, 2014 [facility] [address] [id number] [address] [place] [address], [place] [address] 16 Jul, 2014 [facility] [address] [id number] [address] [place] [address], [place] [address] 16 Jul, 2014 [facility] [address] [id number] [address] [place] [address], [place] [address] 16 Jul, 2014 [facility] [address] [id number] [address] [place] [address], [place] [address] 16 Jul, 2014 [facility] [address] [id number] [address] [place] [address], [place] [address] 16 Jul, 2014 [facility] [address] [id number] [address] [place] [address], [place] [address] Jul, [facility] [address] [id number] [address] [place] [address], [place] [address] Jul, [facility] [address] [id number] [address] [place] [address], [place] [address] Jul, [facility] [address] [id number] [address] [place] [address], [place] [address] Jul, [facility] [address] [id number] [address] [place] [address], [place] [address] Jul, [facility] [address] [id number] [address] [place] [address], [place] [address] May, [facility] [address] [id number] [address] [place] [address], [place] [address] May, [facility] [address] [id number] [address] [place] [address], [place] [address] May, [facility] [address] [id number] [address] [place] [address], [place] [address] May, [facility] [address] [id number] [address] [place] [address], [place] [address] May, [facility] [address] [id number] [address] [place] [address], [place] [address] May, [facility] [address] [id number] [address] [place] [address], [place] [address] May, [facility] [address] [id number] [address] [place] [address], [place] [address] May, [facility] [address] [id number] [address] [place] [address], [place] [address] May, [facility] [address] [id number] [address] [place] [address], [place] [address] May, [facility] [address] [id number] [address] [place] [address], [place] [address] Apr, [facility] [address] [id number] [address] [place] [address], [place] [address] Apr, [facility] [address] [id number] [address] [place] [address], [place] [address] Apr, [facility] [address] [id number] [address] [place] [address], [place] [address] Apr, [facility] [address] [id number] [address] [place] [address], [place] [address] Apr, [facility] [address] [id number] [address] [place] [address], [place] [address] Apr, [facility] [address] [id number] [address] [place] [address], [place] [address] Mar, [facility] [address] [id number] [address] [place] [address], [place] [address] Mar, [facility] [address] [id number] [address] [place] [address], [place] [address] Mar, [facility] [address] [id number] [address] [place] [address], [place] [address] Mar, [facility] [address] [id number] [address] [place] [address], [place] [address] Mar, [facility] [address] [id number] [address] [place] [address], [place] [address] Mar, [facility] [address] [id number] [address] [place] [address], [place] [address] Mar, [facility] [address] [id number] [address] [place] [address], [place] [address] Mar, [facility] [address] [id number] [address] [place] [address], [place] [address] Mar, [facility] [address] [id number] [address] [place] [address], [place] [address] Mar, [facility] [address] [id number] [address] [place] [address], [place] [address] Mar, [facility] [address] [id number] [address] [place] [address], [place] [address] Feb, [facility] [address] [id number] [address] [place] [address], [place] [address] Feb, [facility] [address] [id number] [address] [place] [address], [place] [address] Feb, [facility] [address] [id number] [address] [place] [address], [place] [address] Feb, [facility] [address] [id number] [address] [place] [address], [place] [address] Feb, [facility] [address] [id number] [address] [place] [address], [place] [address] Feb, [facility] [address] [id number] [address] [place] [address], [place] [address] Feb, [facility] [address] [id number] [address] [place] [address], [place] [address] Feb, [facility] [address] [id number] [address] [place] [address], [place] [address] Feb, [facility] [address] [id number] [address] [place] [address], [place] [address] Feb, [facility] [address] [id number] [address] [place] [address], [place] [address] 22 Jan, 2014 [facility] [address] [id number] [address] [place] [address], [place] [address] 22 Jan, 2014 [facility] [address] [id number] [address] [place] [address], [place] [address] 16 Jan, 2014 [facility] [address] [id number] [address] [place] [address], [place] [address] 16 Jan, 2014 [facility] [address] [id number] [address] [place] [address], [place] [address] 12 Jan, 2014 [facility] [address] [id number] [address] [place] [address] [place] [address] Jan, [facility] [address] [id number] [address] [place] [address], [place] [address] Jan, [facility] [address] [id number] [address] [place] [address], [place] [address] Dec, [facility] [address] [id number] [address] [place] [address], [place] [address] Dec, [facility] [address] [id number] [address] [place] [address], [place] [address] Dec, [facility] [address] [id number] [address] [place] [address], [place] [address] Dec, [facility] [address] [id number] [address] [place] [address], [place] [address] Dec, [facility] [address] [id number] [address] [place] [address], [place] [address] Dec, [facility] [address] [id number] [address] [place] [address], [place] [address] Dec, [facility] [address] [id number] [address] [place] [address], [place] [address] Dec, [facility] [address] [id number] [address] [place] [address], [place] [address] Oct, [facility] [address] [id number] [address] [place] [address], [place] [address] Oct, [facility] [address] [id number] [address] [place] [address], [place] [address] September, [facility] [address] [id number] [address] [place] [address], [place] [address] September, [facility] [address] [id number] [address] [place] [address], [place] [address] September, [facility] [address] [id number] [address] [place] [address], [place] [address] September, [facility] [address] [id number] [address] [place] [address], [place] [address] September, [facility] [address] [id number] [address] [place] [address], [place] [address] September, [facility] [address] [id number] [address] [place] [address], [place] [address] September, [facility] [address] [id number] [address] [place] [address], [place] [address] Aug, [facility] [address] [id number] [address] [place] [address], [place] [address] Aug, [facility] [address] [id number] [address] [place] [address], [place] [address] Jul, [facility] [address] [id number] [address] [place] [address], [place] [address] Jul, [facility] [address] [id number] [address] [place] [address], [place] [address] Jul, [facility] [address] [id number] [address] [place] [address], [place] [address] Jul, [facility] [address] [id number] [address] [place] [address], [place] [address] Jul, [facility] [address] [id number] [address] [place] [address], [place] [address] Jul, [facility] [address] [id number] [address] [place] [address], [place] [address] Jul, [facility] [address] [id number] [address] [place] [address], [place] [address] Jul, [facility] [address] [id number] [address] [place] [address], [place] [address] May, [facility] [address] [id number] [address] [place] [address], [place] [address] May, [facility] [address] [id number] [address] [place] [address] [place] [address] 14 May, 2013 [facility] [address] [id number] [address] [place] [address], [place] [address] 14 May, 2013 [facility] [address] [id number] [address] [place] [id number] 18 Apr, 2013 [facility] [address] [id number] [address] [place] [address], [place] [address] 20 Mar, 2013 [facility] [address] [id number] [address] [place] [address], [place] [address] Mar, [facility] [address] [id number] [address] [place] [address], [place] [address] Mar, [facility] [address] [id number] [address] [place] [address], [place] [address] Mar, [facility] [address] [id number] [address] [place] [address], [place] [address] 18 Mar, 2013 [facility] [address] [id number] [address] [place] [address], [place] [address] 18 Mar, 2013 [facility] [address] [id number] [address] [place] [address], [place] [address] 18 Mar, 2013 [facility] [address] [id number] [address] [place] [address], [place] [address] 18 Mar, 2013 [facility] [address] [id number] [address] [place] [address], [place] [address] Mar, [facility] [address] [id number] [address] [place] [id number] 11 Mar, 2013 [facility] [address] [id number] [address] [place] [id number] 04 Mar, 2013 [facility] [address] [id number] [address] [place] [id number] 04 Mar, 2013 [facility] [address] [id number] [address] [place] [id number] 15 Feb, 2013 [facility] [address] [id number] [address] [place] [address], [place] [address] 15 Feb, 2013 [facility] [address] [id number] [address] [place] [address], [place] [address] Feb, [facility] [address] [id number] [address] [place] [address], [place] [address] Feb, [facility] [address] [id number] [address] [place] [address], [place] [address] Feb, [facility] [address] [id number] [address] [place] [address], [place] [address] Jan, [facility] [address] [id number] [address] [place] [address], [place] [address] Dec, [facility] [address] [id number] [address] [place] [address], [place] [address] Dec, [facility] [address] [id number] [address] [place] [address], [place] [address] Dec, [facility] [address] [id number] [address] [place] [address], [place] [address] Nov, [facility] [address] [id number] [address] [place] [address], [place] [address] Nov, [facility] [address] [id number] [address] [place] [address], [place] [address] Nov, [facility] [address] [id number] [address] [place] [address], [place] [address] Oct, [facility] [address] [id number] [address] [place] [address], [place] [address] Oct, [facility] [address] [id number] [address] [place] [address], [place] [address] Oct, [facility] [address] [id number] [address] [place] [address], [place] [address] September, [facility] [address] [id number] [address] [place] [address], [place] [address] September, [facility] [address] [id number] [address] [place] [address], [place] [address] September, [facility] [address] [id number] [address] [place] [address], [place] [address] September, [facility] [address] [id number] [address] [place] [address], [place] [address] September, [facility] [address] [id number] [address] [place] [address], [place] [address] Aug, [facility] [address] [id number] [address] [place] [address], [place] [address] Aug, [facility] [address] [id number] [address] [place] [address], [place] [address] Aug, [facility] [address] [id number] [address] [place] [address], [place] [address] Jul, [facility] [address] [id number] [address] [place] [address], [place] [address] Jul, [facility] [address] [id number] [address] [place] [address], [place] [address] Jul, [facility] [address] [id number] [address] [place] [address], [place] [address] Jul, [facility] [address] [id number] [address] [place] [address], [place] [address] Jul, [facility] [address] [id number] [address] [place] [address], [place] [address] Jul, [facility] [address] [id number] [address] [place] [address], [place] [address] Jul, [facility] [address] [id number] [address] [place] [address], [place] [address] May, [facility] [address] [id number] [address] [place] [address], [place] [address] May, [facility] [address] [id number] [address] [place] [address], [place] [address] May, [facility] [address] [id number] [address] [place] [address], [place] [address] Apr, [facility] [address] [id number] [address] [place] [address], [place] [address] Apr, [facility] [address] [id number] [address] [place] [address], [place] [address] Apr, [facility] [address] [id number] [address] [place] [address], [place] [address] Apr, [facility] [address] [id number] [address] [place] [address], [place] [address] Apr, [facility] [address] [id number] [address] [place] [address], [place] [address] Mar, [facility] [address] [id number] [address] [place] [address], [place] [address] Mar, [facility] [address] [id number] [address] [place] [address], [place] [address] Mar, [facility] [address] [id number] [address] [place] [address], [place] [address] Mar, [facility] [address] [id number] [address] [place] [address], [place] [address] Feb, [facility] [address] [id number] [address] [place] [address], [place] [address] Feb, [facility] [address] [id number] [address] [place] [address], [place] [address] Feb, [facility] [address] [id number] [address] [place] [address], [place] [address] Feb, [facility] [address] [id number] [address] [place] [address], [place] [address] Feb, [facility] [address] [id number] [address] [place] [address], [place] [address] Jan, [facility] [address] [id number] [address] [place] [address], [place] [address] Dec, [facility] [address] [id number] [address] [place] [address], [place] [address] Dec, [facility] [address] [id number] [address] [place] [address], [place] [address] Dec, [facility] [address] [id number] [address] [place] [address], [place] [address] Nov, [facility] [address] [id number] [address] [place] [address], [place] [address] Nov, [facility] [address] [id number] [address] [place] [address], [place] [address] Nov, [facility] [address] [id number] [address] [place] [address], [place] [address] Oct, [facility] [address] [id number] [address] [place] [address], [place] [address] Oct, [facility] [address] [id number] [address] [place] [address], [place] [address] Oct, [facility] [address] [id number] [address] [place] [address], [place] [address] Oct, [facility] [address] [id number] [address] [place] [address], [place] [address] September, [facility] [address] [id number] [address] [place] [address], [place] [address] September, [facility] [address] [id number] [address] [place] [address], [place] [address] 30 Aug, 2011 [facility] [address] [id number] [address] [place] [address], [place] [address] Aug, [facility] [address] [id number] [address] [place] [address], [place] [address] Aug, [facility] [address] [id number] [address] [place] [address], [place] [address] Aug, [facility] [address] [id number] [address] [place] [address], [place] [address] Aug, [facility] [address] [id number] [address] [place] [address], [place] [address] Aug, [facility] [address] [id number] [address] [place] [address], [place] [address] Aug, [facility] [address] [id number] [address] [place] [address], [place] [address] Jul, [facility] [address] [id number] [address] [place] [address], [place] [address] Jul, [facility] [address] [id number] [address] [place] [address], [place] [address] Jul, [facility] [address] [id number] [address] [place] [address], [place] [address] May, [facility] [address] [id number] [address] [place] [address], [place] [address] May, [facility] [address] [id number] [address] [place] [address], [place] [address] May, [facility] [address] [id number] [address] [place] [address], [place] [address] Apr, [facility] [address] [id number] [address] [place] [address], [place] [address] Apr, [facility] [address] [id number] [address] [place] [address], [place] [address] Mar, [facility] [address] [id number] [address] [place] [address], [place] [address] Mar, [facility] [address] [id number] [address] [place] [address], [place] [address] Mar, [facility] [address] [id number] [address] [place] [address], [place] [address] Mar, [facility] [address] [facility] [id number] [address] [place] [address] Mar, [facility] [address] [facility] [id number] [address] [place] [address] Mar, [facility] [address] [facility] [id number] [address] [place] [address] Feb, [facility] [address] [facility] [id number] [address] [place] [address] Feb, [facility] [address] [facility] [id number] [address] [place] [address] Feb, IMMUNIZATIONS No Known Immunizations SOCIAL HISTORY [...] foot infections x 3 2015 Hospitalization History [facility] - right big t oe removed 2018
--- OUTSIDE RECORDS SUMMARY | 2020-01-03 08:12 | XMS REPORT ---
Author Author Tra SILVERIO Organization [facility] Address [address] [place] [address] Care Team Providers Care Receiving Team Member Name Role Phone FERNY SILVERIO Unavailable PROBLEMS Type Condition ICD9-CM Code ENC27-OO Code Onset Dates Condition S tatus SNOMED Code Problem Hypertension I10 Active 0503159 3 Problem Hypoxia R09.02 Active 141379530 Problem COPD (chronic obstructive pulmonary disease) J44.9 Active 25021242 Problem Lumbar radiculopathy, chronic M54.16 Active 470430666 Problem alf current use of insulin Z79.4 Active 898878555 Problem Recurrent major depressive disorder, in full remission F33.42 Active 474996530 Problem Hyperlipidemia, unspecified E78.5 Ac tive 09691642 Problem PAD (peripheral artery disease) I73.9 Active 793219908 Problem Type 2 diabetes mellitus with other specified complication E11.69 Active 224295657068 Problem Anxiety F41.9 Active 46687661 Problem Type 2 diabetes mellitus wit h diabetic peripheral angiopathy without gangrene E11.51 Active 255445014 Problem ED (erectile dysfunction) of organic origin N52.9 Active 578573788 Problem Arthritis M19.90 Active 0938839 Problem Morbid (severe) obesity due to excess calories E66 .01 Active 867873967 ALLERGIES No Information ENCOUNTERS Encounter Location Date Diagnosis [address] [id number] [address] Oct, Anxiety F41.[address] [id number] [address] 22 Oct, 2019 [facility] [address] [facility] [id number] [address] [place] [phone] 17 Oct, 2019 [facility] [address] [facility] [id number] [address] [place] [phone] 15 Oct, 2019 Back pain M54.9 and Lumbar r adiculopathy, chronic M54.16 [facility] [address] [id number] [address] [place] [id number] 04 Oct, 2019 Lumbar radiculopathy, chroni c M54.16 [place] [address] [id number] [address] [place] [phone] 03 Oct, 2019 Anxiety F41.[address] [id number] [address] Oct, [place] [address] [id number] [address] [place] [address] September, Back pain M54.9 and Lumbar r adiculopathy, chronic M54.[address] 340B [id number] [address] September, Anxiety F41.[id number] [place] [address] Aug, [place] [address] [id number] [address] [place] [address] 24 Aug, 2019 Back pain M54.9 and Lumbar r adiculopathy, chronic M54.16 [place] [address] [facility] [id number] [address] [place] [id number] 10 Aug, 2019 Anxiety F41.9 ; Back pain M5 4.9 and Lumbar radiculopathy, chronic M54.16 [facility] [address] [id number] [address] [place] [address] 09 Aug, 2019 Lumbar radiculopathy, chroni c M54.16 ; Anxiety F41.9 ; Type 2 diabetes mellitus with other specified complication E11.69 and Hypertension I10 [facility] [address] [id number] [address] [place] [address] Jul, [facility] [address] [facility] [id number] [address] [place] [address] Jul, Lumbar radiculopathy, chroni c M54.16 ; Back pain M54.9 and Anxiety F41.9 [facility] [address] [id number] [address] [place] [phone] 23 Jul, 2019 [place] [address] [id number] [address] [place] [id number] 13 Jul, 2019 Anxiety F41.9 [place] [address] [facility] [id number] [address] [place] [id number] 12 Jul, 2019 Anxiety F41.9 [place] [address] [id number] [address] [place] [address] Jul, Back pain M54.9 [place] [address] [facility] [id number] [address] [place] [address] Jul, Back pain M54.9 [place] [address] [facility] [id number] [address] [place] [phone] 28 Jul, 2019 Lumbar radiculopathy, chroni c M54.16 [place] [address] [facility] [id number] [address] [place] [id number] 28 Jul, 2019 Back pain M54.9 [place] [address] [facility] [id number] [address] [place] [id number] 07 Jul, 2019 Encounter for Medicare annua [...] diabetes mellitus with other specified complication E11.69 [place] [address] [facility] [id number] [address] [place] [id number] 03 Jul, 2019 Back pain M54.9 [place] [address] [facility] [id number] [address] [place] [phone] 03 Jul, 2019 Anxiety F41.9 [facility] [address] [id number] [address] [place] [address] May, [facility] [address] [id number] [address] [place] [address] May, Lumbar radiculopathy, chroni c M54.16 [facility] [address] [id number] [address] [place] [phone] May, Back pain M54.9 [facility] [address] [id number] [address] [place] [address] May, [facility] [address] [id number] [address] [place] [address] May, Back pain M54.9 and Anxiety F41.9 [facility] [address] [facility] [id number] [address] [place] [address] May, [facility] [address] [id number] [address] [place] [address] May, Type 2 diabetes mellitus wit h diabetic peripheral angiopathy without gangrene E11.51 ; Arthritis M19.90 ; ED (erectile dysfunction) of organic origin N52.9 ; Morbid (severe) obesity due to excess calories E66.01 and Lumbar radiculopathy, chronic M54.16 [facility] [address] [id number] [address] [place] [address] May, Diabetes E11.9 [facility] [address] [id number] [address] [place] [address] Apr, [facility] [address] [id number] [address] [place] [address] Apr, Back pain M54.9 [facility] [address] [id number] [address] [place] [phone] Apr, [facility] [address] [facility] [id number] [address] [place] [address] Apr, Anxiety F41.9 [facility] [address] [id number] [address] [place] [phone] 10 Apr, 2019 Back pain M54.9 and Lumbar r adiculopathy, chronic M54.16 [facility] [address] [facility] [id number] [address] [place] [id number] 05 Apr, 2019 Back pain M54.9 ; Anxiety F4 1.9 and Lumbar radiculopathy, chronic M54.16 [facility] [address] [id number] [address] [place] [address] Mar, [facility] [address] [id number] [address] [place] [phone] Mar, [facility] [address] [facility] [id number] [address] [place] [address] Mar, Back pain M54.9 [facility] [address] [facility] [id number] [address] [place] [phone] Mar, [facility] [address] [facility] [id number] [address] [place] [address] Feb, Type 2 diabetes mellitus wit h diabetic peripheral angiopathy without gangrene E11.51 ; Lumbar radiculopathy, chronic M54.16 ; ED (erectile dysfunction) of organic origin N52.9 ; Encounter for immunization Z23 ; COPD (chronic obstructive pulmonary disease) J44.9 and Anxiety F41.9 [facility] [address] [facility] [id number] [address] [place] [phone] Feb, Back pain M54.9 [facility] [address] [id number] [address] [place] [phone] Feb, [facility] [address] [facility] [id number] [address] [place] [phone] Feb, [facility] [address] [facility] [id number] [address] [place] [phone] Feb, [facility] [address] [facility] [id number] [address] [place] [address] Feb, Back pain M54.9 [facility] [address] [id number] [address] [place] [phone] Feb, [facility] [address] [id number] [address] [place] [phone] Jan, Anxiety F41.9 [facility] [address] [id number] [address] [place] [phone] Jan, Anxiety F41.9 [facility] [address] [id number] [address] [place] [phone] Jan, [facility] [address] [id number] [address] [place] [address] Jan, [facility] [address] [id number] [address] [place] [id number] Jan, Back pain M54.9 [facility] [address] [id number] [address] [place] [phone] Jan, [facility] [address] [id number] [address] [place] [address] Dec, Acute non-recurrent frontal sinusitis J01.10 [facility] [address] [id number] [address] [place] [address] Dec, Acute non-recurrent frontal sinusitis J01.10 [facility] [address] [id number] [address] [place] [address] Dec, Type 2 diabetes mellitus wit h diabetic peripheral angiopathy without gangrene E11.51 ; Lumbar radiculopathy, chronic M54.16 ; Recurrent major depressive disorder, in full remission F33.42 and Anxiety F41.9 [facility] [address] [id number] [address] [place] [phone] Dec, [facility] [address] [id number] [address] [place] [address] Nov, Anxiety F41.9 [facility] [address] [id number] [address] [place] [address] Nov, [facility] [address] [id number] [address] [place] [id number] Nov, Back pain M54.9 [facility] [address] [id number] [address] [place] [address] Nov, [facility] [address] [id number] [address] [place] [phone] Nov, Back pain M54.9 [facility] [address] [id number] [address] [place] [address] Nov, Anxiety F41.9 [facility] [address] [id number] [address] [place] [phone] Nov, [facility] [address] [id number] [address] [place] [address] Oct, Back pain M54.9 [facility] [address] [id number] [address] [place] [address] Oct, [facility] [address] [id number] [address] [place] [address] Oct, [facility] [address] [id number] [address] [place] [phone] Oct, [facility] [address] [id number] [address] [place] [phone] September, Back pain M54.9 [facility] [address] [id number] [address] [place] [address] September, [facility] [address] [id number] [address] [place] [address] September, [facility] [address] [id number] [address] [place] [address] September, [facility] [address] [id number] [address] [place] [address] Aug, Back pain M54.9 [facility] [address] [id number] [address] [place] [phone] Aug, Anxiety F41.9 [facility] [address] [id number] [address] [place] [phone] Aug, [facility] [address] [facility] [id number] [address] [place] [address] Aug, Pressure ulcer of other site , stage 3 L89.893 and COPD (chronic obstructive pulmonary disease) J44.9 [facility] [address] [id number] [address] [place] [address] Aug, History of smoking Z87.891 [facility] [address] [id number] [address] [place] [address] Jul, Type 2 diabetes mellitus wit h diabetic peripheral angiopathy without gangrene E11.51 [facility] [address] [id number] [address] [place] [address] Jul, Back pain M54.9 [facility] [address] [id number] [address] [place] [address] Jul, Anxiety F41.9 [facility] [address] [id number] [address] [place] [phone] Jul, [facility] [address] [id number] [address] [place] [phone] Jul, Back pain M54.9 [facility] [address] [id number] [address] [place] [address] Jul, Back pain M54.9 [facility] [address] [facility] [id number] [address] [place] [address] Jul, Lumbar radiculopathy, chroni c M54.16 ; Hypertension I10 and Type 2 diabetes mellitus with diabetic peripheral angiopathy without gangrene E11.51 [facility] [address] [facility] [id number] [address] [place] [address] Jul, Back pain M54.9 [facility] [address] [id number] [address] [place] [id number] Jul, Back pain M54.9 and Anxiety F41.9 [facility] [address] [id number] [address] [place] [address] Jul, [facility] [address] [id number] [address] [place] [address] May, Back pain M54.9 and Anxiety F41.9 [facility] [address] [id number] [address] [place] [address] May, [facility] [address] [id number] [address] [place] [address] Apr, Radiculopathy of lumbar rhiannon on M54.16 ; Back pain M54.9 and Anxiety F41.9 [facility] [address] [id number] [address] [place] [address] Apr, Diabetes E11.9 ; Muscle spas m M62.838 and Lumbar radiculopathy, chronic M54.16 [facility] [address] [id number] [address] [place] [phone] Apr, [facility] [address] [id number] [address] [place] [phone] Apr, [facility] [address] [id number] [address] [place] [address] Mar, Back pain M54.9 and Anxiety F41.9 [facility] [address] [id number] [address] [place] [address] Mar, [facility] [address] [id number] [address] [place] [phone] Mar, [facility] [address] [id number] [address] [place] [address] Mar, [facility] [address] [id number] [address] [place] [address] Mar, Encounter for immunization Z 23 [facility] [address] [id number] [address] [place] [id number] 31 Feb, 2018 Back pain M54.9 and Anxiety F41.9 [facility] [address] [id number] [address] [place] [phone] 04 Feb, 2018 Back pain M54.9 and Anxiety F41.9 [facility] [address] [id number] [address] [place] [address] Jan, Back pain M54.9 and Anxiety F41.9 [place] [address] [facility] [id number] [address] [place] [address] Jan, [facility] [address] [id number] [address] [place] [address] Dec, [facility] [address] [id number] [address] [place] [address] Dec, Back pain M54.9 and Anxiety F41.9 [facility] [address] [id number] [address] [place] [address] Dec, Diabetes E11.9 ; Type 2 diab etes mellitus with diabetic peripheral angiopathy without gangrene E11.51 ; Lumbar radiculopathy, chronic M54.16 ; COPD (chronic obstructive pulmonary disease) J44.9 and Anxiety F41.9 [facility] [address] [id number] [address] [place] [address] Dec, Back pain M54.9 and Anxiety F41.9 [facility] [address] [id number] [address] [place] [address] Nov, Back pain M54.9 and Anxiety F41.9 [facility] [address] [id number] [address] [place] [address] Oct, [facility] [address] [facility] [id number] [address] [place] [address] Oct, Back pain M54.9 and Anxiety F41.9 [facility] [address] [id number] [address] [place] [address] September, Anxiety F41.9 and Back pain M54.9 [facility] [address] [id number] [address] [place] [address] September, Diabetes E11.9 ; Hypertensio n I10 ; COPD (chronic obstructive pulmonary disease) J44.9 and Lumbar radiculopathy, chronic M54.16 [facility] [address] [id number] [address] [place] [address] September, Anxiety F41.9 [place] [address] [id number] [address] [place] [address] Aug, [place] [address] [id number] [address] [place] [address] Aug, [place] [address] [id number] [address] [place] [address] Aug, Anxiety F41.9 and Back pain M54.9 [place] [address] [facility] [id number] [address] [place] [address] Aug, Medicare annual wellness vis it, initial [...] and alf current use of insulin Z79.4 [facility] [address] [id number] [address] [place] [id number] Jul, Back pain M54.9 [facility] [address] [id number] [address] [place] [address] Jul, [facility] [address] [id number] [address] [place] [address] Jul, Anxiety F41.9 and Back pain M54.9 [facility] [address] [id number] [address] [place] [address] Jul, Diabetes E11.9 [facility] [address] [id number] [address] [place] [phone] May, [facility] [address] [id number] [address] [place] [address] May, Diabetes E11.9 ; Anxiety F41 .9 ; Back pain M54.9 and COPD (chronic obstructive pulmonary disease) J44.9 [facility] [address] [id number] [address] [place] [address] May, Back pain M54.9 [facility] [address] [facility] [id number] [address] [place] [address] May, [facility] [address] [facility] [id number] [address] [place] [address] Apr, Back pain M54.9 [facility] [address] [id number] [address] [place] [address] Mar, Back pain M54.9 [facility] [address] [id number] [address] [place] [address] Mar, [facility] [address] [facility] [id number] [address] [place] [address] 16 Mar, 2017 [facility] [address] [facility] [id number] [address] [place] [phone] 14 Mar, 2017 Radiculopathy of lumbar rhiannon on M54.16 [facility] [address] [facility] [id number] [address] [place] [id number] 13 Mar, 2017 [facility] [address] [facility] [id number] [address] [place] [phone] 07 Mar, 2017 Encounter for immunization Z 23 and Lumbar radiculopathy, chronic M54.16 [facility] [address] [id number] [address] [place] [id number] Mar, Back pain M54.9 and Anxiety F41.9 [facility] [address] [id number] [address] [place] [phone] 10 Feb, 2017 Acute bilateral low back boy n with left-sided sciatica M54.42 and Acute bilateral low back pain with right-sided sciatica M54.41 [facility] [address] [id number] [address] [place] [id number] Feb, [facility] [address] [id number] [address] [place] [phone] Feb, Back pain M54.9 [facility] [address] [id number] [address] [place] [id number] 05 Jan, 2017 Back pain M54.9 and Anxiety F41.9 [facility] [address] [facility] [id number] [address] [place] [id number] 05 Jan, 2017 Diabetes E11.9 [facility] [address] [facility] [id number] [address] [place] [id number] Dec, Diabetes E11.9 ; Back pain M 54.9 ; Anxiety F41.9 and Insulin long- term use Z79.4 [facility] [address] [id number] [address] [place] [phone] Dec, Anxiety F41.9 [facility] [address] [facility] [id number] [address] [place] [phone] Dec, Back pain M54.9 [facility] [address] [facility] [id number] [address] [place] [phone] Nov, Back pain M54.9 [facility] [address] [facility] [id number] [address] [place] [id number] Oct, Back pain M54.9 and Anxiety F41.9 [facility] [address] [facility] [id number] [address] [place] [id number] September, Back pain M54.9 [facility] [address] [id number] [address] [place] [id number] September, Back pain M54.9 and Anxiety F41.9 [facility] [address] [id number] [address] [place] [phone] Aug, Diabetes E11.9 ; Anxiety F41 .9 ; Back pain M54.9 and PAD (peripheral artery disease) I73.9 [facility] [address] [id number] [address] [place] [id number] Aug, Anxiety F41.9 [facility] [address] [id number] [address] [place] [id number] Aug, Back pain M54.9 [facility] [address] [id number] [address] [place] [id number] Jul, Back pain M54.9 [facility] [address] [id number] [address] [place] [id number] Jul, Back pain M54.9 [facility] [address] [id number] [address] [place] [id number] 23 Jul, 2016 Back pain M54.9 [facility] [address] [id number] [address] [place] [id number] 16 Jul, 2016 Dorsalgia M54.9 [facility] [address] [id number] [address] [place] [id number] 14 Jul, 2016 [facility] [address] [id number] [address] [place] [id number] May, Back pain M54.9 [facility] [address] [id number] [address] [place] [id number] 06 May, 2016 Diabetes E11.9 ; Anxiety F41 .9 ; Port catheter in place Z95.828 ; Encounter for immunization Z23 and Insulin long-term use Z79.4 [facility] [address] [id number] [address] [place] [phone] Apr, Back pain M54.9 [facility] [address] [id number] [address] [place] [id number] Apr, Back pain M54.9 [facility] [address] [id number] [address] [place] [id number] Apr, [facility] [address] [id number] [address] [place] [address] Apr, Back pain M54.9 [facility] [address] [id number] [address] [place] [address] Mar, COPD (chronic obstructive pu lmonary disease) J44.9 [facility] [address] [id number] [address] [place] [address] Feb, [facility] [address] [id number] [address] [place] [address] Jan, [facility] [address] [id number] [address] [place] [address] Jan, [facility] [address] [id number] [address] [place] [address] Jan, [facility] [address] [id number] [address] [place] [address] Jan, [facility] [address] [id number] [address] [place] [address] Dec, Diabetes E11.9 ; Hypoxia R09 .02 and Back pain M54.9 [facility] [address] [id number] [address] [place] [address] Dec, [facility] [address] [id number] [address] [place] [address] Nov, [facility] [address] [id number] [address] [place] [address] Oct, Anxiety F41.9 [facility] [address] [id number] [address] [place] [address] Oct, Back pain M54.9 [facility] [address] [id number] [address] [place] [address] September, Back pain M54.9 [facility] [address] [id number] [address] [place] [address] September, Diabetes E11.9 [facility] [address] [id number] [address] [place] [address] September, [facility] [address] [id number] [address] [place] [address] September, Diabetes E11.9 ; Insulin sarai g-term use Z79.4 and Back pain M54.9 [facility] [address] [facility] [id number] [address] [place] [address] Aug, Back pain M54.9 [facility] [address] [facility] [id number] [address] [place] [address] Aug, Back pain M54.9 ; Anxiety F4 1.9 and Arthropathy, unspecified M12.9 [facility] [address] [id number] [address] [place] [address] Jul, Back pain M54.9 [facility] [address] [facility] [id number] [address] [place] [address] Jul, Anxiety F41.9 [facility] [address] [id number] [address] [place] [address] Jul, Back pain M54.9 [facility] [address] [id number] [address] [place] [address] Jul, [facility] [address] [facility] [id number] [address] [place] [address] Jul, [facility] [address] [facility] [id number] [address] [place] [address] May, Back pain M54.9 ; Diabetes E 11.9 ; Insulin long-term use Z79.4 ; COPD (chronic obstructive pulmonary disease) J44.9 and Hypertension I10 [facility] [address] [facility] [id number] [address] [place] [address] May, Chronic pain G89.29 [facility] [address] [facility] [id number] [address] [place] [address] Apr, [facility] [address] [facility] [id number] [address] [place] [address] Apr, [facility] [address] [facility] [id number] [address] [place] [address] Mar, [facility] [address] [facility] [id number] [address] [place] [address] Mar, Encounter for immunization Z 23 and Diabetes E11.9 [facility] [address] [facility] [id number] [address] [place] [address] Feb, [facility] [address] [facility] [id number] [address] [place] [address] Feb, [facility] [address] [facility] [id number] [address] [place] [address] Jan, [facility] [address] [facility] [id number] [address] [place] [address] Jan, [facility] [address] [facility] [id number] [address] [place] [address] Dec, [facility] [address] [facility] [id number] [address] [place] [address] Dec, [facility] [address] [facility] [id number] [address] [place] [address] Dec, Unspecified arthropathy, sit e unspecified 716.90 and Diabetes mellitus type 2, uncontrolled 250.02 [facility] [address] [facility] [id number] [address] [place] [address] Dec, [facility] [address] [place] [id number] [address] [place] [address] Nov, [facility] [address] [id number] [address] [place] [address], [place] [address] Oct, [facility] [address] [id number] [address] [place] [address], [place] [address] September, [facility] [address] [id number] [address] [place] [address], [place] [address] September, [facility] [address] [id number] [address] [place] [address], [place] [address] September, [facility] [address] [id number] [address] [place] [address], [place] [address] September, [facility] [address] [id number] [address] [place] [address], [place] [address] Aug, [facility] [address] [id number] [address] [place] [address], [place] [address] Aug, [facility] [address] [id number] [address] [place] [address], [place] [address] 18 Jul, 2014 [facility] [address] [id number] [address] [place] [address], [place] [address] 18 Jul, 2014 [facility] [address] [id number] [address] [place] [address], [place] [address] 16 Jul, 2014 [facility] [address] [id number] [address] [place] [address], [place] [address] 16 Jul, 2014 [facility] [address] [id number] [address] [place] [address], [place] [address] 16 Jul, 2014 [facility] [address] [id number] [address] [place] [address], [place] [address] 16 Jul, 2014 [facility] [address] [id number] [address] [place] [address], [place] [address] 16 Jul, 2014 [facility] [address] [id number] [address] [place] [address], [place] [address] 16 Jul, 2014 [facility] [address] [id number] [address] [place] [address], [place] [address] 16 Jul, 2014 [facility] [address] [id number] [address] [place] [address], [place] [address] Jul, 2014 [facility] [address] [id number] [address] [place] [address], [place] [address] 13 Jul, 2014 [facility] [address] [id number] [address] [place] [address], [place] [address] 09 Jul, 2014 [facility] [address] [id number] [address] [place] [address], [place] [address] 09 Jul, 2014 [facility] [address] [id number] [address] [place] [address], [place] [address] 17 Jul, 2014 [facility] [address] [id number] [address] [place] [address], [place] [address] 17 Jul, 2014 [facility] [address] [id number] [address] [place] [address], [place] [address] 16 Jul, 2014 [facility] [address] [id number] [address] [place] [address], [place] [address] 16 Jul, 2014 [facility] [address] [id number] [address] [place] [address], [place] [address] 16 Jul, 2014 [facility] [address] [id number] [address] [place] [address], [place] [address] 16 Jul, 2014 [facility] [address] [id number] [address] [place] [address], [place] [address] 16 Jul, 2014 [facility] [address] [id number] [address] [place] [address], [place] [address] 16 Jul, 2014 [facility] [address] [id number] [address] [place] [address], [place] [address] 16 Jul, 2014 [facility] [address] [id number] [address] [place] [address] 16 Jul, 2014 [facility] [address] [id number] [address] [place] [address] Jul, [facility] [address] [id number] [address] [place] [address], [place] [address] Jul, [facility] [address] [id number] [address] [place] [address], [place] [address] Jul, [facility] [address] [id number] [address] [place] [address], [place] [address] Jul, [facility] [address] [id number] [address] [place] [address], [place] [address] Jul, [facility] [address] [id number] [address] [place] [address], [place] [address] Jul, [facility] [address] [id number] [address] [place] [address], [place] [address] May, [facility] [address] [id number] [address] [place] [address], [place] [address] May, [facility] [address] [id number] [address] [place] [address], [place] [address] May, [facility] [address] [id number] [address] [place] [address], [place] [address] May, [facility] [address] [id number] [address] [place] [address], [place] [address] May, [facility] [address] [id number] [address] [place] [address], [place] [address] May, [facility] [address] [id number] [address] [place] [address], [place] [address] May, [facility] [address] [id number] [address] [place] [address], [place] [address] May, [facility] [address] [id number] [address] [place] [address], [place] [address] May, [facility] [address] [id number] [address] [place] [address], [place] [address] May, [facility] [address] [id number] [address] [place] [address], [place] [address] Apr, [facility] [address] [id number] [address] [place] [address], [place] [address] Apr, [facility] [address] [id number] [address] [place] [address], [place] [address] Apr, [facility] [address] [id number] [address] [place] [address], [place] [address] Apr, [facility] [address] [id number] [address] [place] [address], [place] [address] Apr, [facility] [address] [id number] [address] [place] [address], [place] [address] Apr, [facility] [address] [id number] [address] [place] [address], [place] [address] Mar, [facility] [address] [id number] [address] [place] [address], [place] [address] Mar, [facility] [address] [id number] [address] [place] [address], [place] [address] Mar, [facility] [address] [id number] [address] [place] [address], [place] [address] Mar, [facility] [address] [id number] [address] [place] [address], [place] [address] Mar, [facility] [address] [id number] [address] [place] [address], [place] [address] Mar, [facility] [address] [id number] [address] [place] [address], [place] [address] Mar, [facility] [address] [id number] [address] [place] [address], [place] [address] 17 Mar, 2014 [facility] [address] [id number] [address] [place] [address], [place] [address] 14 Mar, 2014 [facility] [address] [id number] [address] [place] [address], [place] [address] Mar, [facility] [address] [id number] [address] [place] [address], [place] [address] Mar, [facility] [address] [id number] [address] [place] [address], [place] [address] Feb, [facility] [address] [id number] [address] [place] [address], [place] [address] Feb, [facility] [address] [id number] [address] [place] [address], [place] [address] Feb, [facility] [address] [id number] [address] [place] [address], [place] [address] Feb, [facility] [address] [id number] [address] [place] [address], [place] [address] Feb, [facility] [address] [id number] [address] [place] [address], [place] [address] Feb, [facility] [address] [id number] [address] [place] [address], [place] [address] Feb, [facility] [address] [id number] [address] [place] [address], [place] [address] Feb, [facility] [address] [id number] [address] [place] [address], [place] [address] Feb, [facility] [address] [id number] [address] [place] [address], [place] [address] Feb, [facility] [address] [id number] [address] [place] [address] Jan, [facility] [address] [id number] [address] [place] [address], [place] [address] 22 Jan, 2014 [facility] [address] [id number] [address] [place] [address], [place] [address] 16 Jan, 2014 [facility] [address] [id number] [address] [place] [address], [place] [address] 16 Jan, 2014 [facility] [address] [id number] [address] [place] [address], [place] [address] Jan, [facility] [address] [id number] [address] [place] [address], [place] [address] Jan, [facility] [address] [id number] [address] [place] [address], [place] [address] Jan, [facility] [address] [id number] [address] [place] [address], [place] [address] Dec, [facility] [address] [id number] [address] [place] [address], [place] [address] Dec, [facility] [address] [id number] [address] [place] [address], [place] [address] Dec, [facility] [address] [id number] [address] [place] [address], [place] [address] Dec, [facility] [address] [id number] [address] [place] [address], [place] [address] Dec, [facility] [address] [id number] [address] [place] [address], [place] [address] Dec, [facility] [address] [id number] [address] [place] [address], [place] [address] Dec, [facility] [address] [id number] [address] [place] [address], [place] [address] Dec, [facility] [address] [id number] [address] [place] [address], [place] [address] Oct, [facility] [address] [id number] [address] [place] [address], [place] [address] Oct, [facility] [address] [id number] [address] [place] [address], [place] [address] September, [facility] [address] [id number] [address] [place] [address], [place] [address] September, [facility] [address] [id number] [address] [place] [address], [place] [address] September, [facility] [address] [id number] [address] [place] [address], [place] [address] September, [facility] [address] [id number] [address] [place] [address], [place] [address] September, [facility] [address] [id number] [address] [place] [address], [place] [address] September, [facility] [address] [id number] [address] [place] [address], [place] [address] September, [facility] [address] [id number] [address] [place] [address], [place] [address] Aug, [facility] [address] [id number] [address] [place] [address], [place] [address] Aug, [facility] [address] [id number] [address] [place] [address], [place] [address] Jul, [facility] [address] [id number] [address] [place] [address], [place] [address] Jul, [facility] [address] [id number] [address] [place] [address], [place] [address] Jul, [facility] [address] [id number] [address] [place] [address], [place] [address] Jul, [facility] [address] [id number] [address] [place] [address], [place] [address] Jul, [facility] [address] [id number] [address] [place] [address] Jul, [facility] [address] [id number] [address] [place] [address], [place] [address] Jul, [facility] [address] [id number] [address] [place] [address], [place] [address] Jul, [facility] [address] [id number] [address] [place] [address], [place] [address] May, [facility] [address] [id number] [address] [place] [address], [place] [address] 15 May, 2013 [facility] [address] [id number] [address] [place] [address], [place] [address] 14 May, 2013 [facility] [address] [id number] [address] [place] [address], [place] [address] 14 May, 2013 [facility] [address] [id number] [address] [place] [address], [place] [address] 18 Apr, 2013 [facility] [address] [id number] [address] [place] [address], [place] [address] 20 Mar, 2013 [facility] [address] [id number] [address] [place] [address], [place] [address] Mar, [facility] [address] [id number] [address] [place] [address], [place] [address] Mar, [facility] [address] [id number] [address] [place] [address], [place] [address] Mar, [facility] [address] [id number] [address] [place] [address], [place] [address] 18 Mar, 2013 [facility] [address] [id number] [address] [place] [address], [place] [address] 18 Mar, 2013 [facility] [address] [id number] [address] [place] [address], [place] [address] 18 Mar, 2013 [facility] [address] [id number] [address] [place] [address], [place] [address] 18 Mar, 2013 [facility] [address] [id number] [address] [place] [address], [place] [address] Mar, [facility] [address] [id number] [address] [place] [address], [place] [address] Mar, [facility] [address] [id number] [address] [place] [address], [place] [address] 04 Mar, 2013 [facility] [address] [id number] [address] [place] [address], [place] [address] Mar, [facility] [address] [id number] [address] [place] [address], [place] [address] 15 Feb, 2013 [facility] [address] [id number] [address] [place] [address], [place] [address] 15 Feb, 2013 [facility] [address] [id number] [address] [place] [address], [place] [address] Feb, [facility] [address] [id number] [address] [place] [address], [place] [address] Feb, [facility] [address] [id number] [address] [place] [address], [place] [address] Feb, [facility] [address] [id number] [address] [place] [address], [place] [address] Jan, [facility] [address] [id number] [address] [place] [address], [place] [address] Dec, [facility] [address] [id number] [address] [place] [address], [place] [address] Dec, [facility] [address] [id number] [address] [place] [address], [place] [address] Dec, [facility] [address] [id number] [address] [place] [address], [place] [address] Nov, [facility] [address] [id number] [address] [place] [address], [place] [address] Nov, [facility] [address] [id number] [address] [place] [address], [place] [address] Nov, [facility] [address] [id number] [address] [place] [address], [place] [address] Oct, [facility] [address] [id number] [address] [place] [address], [place] [address] Oct, [facility] [address] [id number] [address] [place] [address], [place] [address] Oct, [facility] [address] [id number] [address] [place] [address], [place] [address] September, [facility] [address] [id number] [address] [place] [address], [place] [address] September, [facility] [address] [id number] [address] [place] [address], [place] [address] September, [facility] [address] [id number] [address] [place] [address], [place] [address] September, [facility] [address] [id number] [address] [place] [address], [place] [address] September, [facility] [address] [id number] [address] [place] [address], [place] [address] Aug, [facility] [address] [id number] [address] [place] [address], [place] [address] Aug, [facility] [address] [id number] [address] [place] [address], [place] [address] Aug, [facility] [address] [id number] [address] [place] [address], [place] [address] Jul, [facility] [address] [id number] [address] [place] [address], [place] [address] Jul, [facility] [address] [id number] [address] [place] [address], [place] [address] Jul, [facility] [address] [id number] [address] [place] [address], [place] [address] Jul, [facility] [address] [id number] [address] [place] [address], [place] [address] Jul, [facility] [address] [id number] [address] [place] [address], [place] [address] Jul, [facility] [address] [id number] [address] [place] [address], [place] [address] Jul, [facility] [address] [id number] [address] [place] [address], [place] [address] May, [facility] [address] [id number] [address] [place] [address], [place] [address] May, [facility] [address] [id number] [address] [place] [address], [place] [address] May, [facility] [address] [id number] [address] [place] [address], [place] [address] Apr, [facility] [address] [id number] [address] [place] [address], [place] [address] Apr, [facility] [address] [id number] [address] [place] [address], [place] [address] Apr, [facility] [address] [id number] [address] [place] [address], [place] [address] Apr, [facility] [address] [id number] [address] [place] [address], [place] [address] Apr, [facility] [facility] [address] [id number] [address] [place] [address], [place] [address] Mar, [facility] [address] [id number] [address] [place] [address], [place] [address] Mar, [facility] [address] [id number] [address] [place] [address], [place] [address] Mar, [facility] [address] [id number] [address] [place] [address], [place] [address] Mar, [facility] [address] [id number] [address] [place] [address], [place] [address] Feb, [facility] [address] [id number] [address] [place] [address], [place] [address] Feb, [facility] [address] [id number] [address] [place] [address], [place] [address] Feb, [facility] [address] [id number] [address] [place] [address], [place] [address] Feb, [facility] [address] [id number] [address] [place] [address], [place] [address] Feb, [facility] [address] [id number] [address] [place] [address], [place] [address] Jan, [facility] [address] [id number] [address] [place] [address], [place] [address] Dec, [facility] [address] [id number] [address] [place] [address], [place] [address] Dec, [facility] [address] [id number] [address] [place] [address], [place] [address] Dec, [facility] [address] [id number] [address] [place] [address], [place] [address] Nov, [facility] [address] [id number] [address] [place] [address], [place] [address] Nov, [facility] [address] [id number] [address] [place] [address], [place] [address] Nov, [facility] [address] [id number] [address] [place] [address], [place] [address] Oct, [facility] [address] [id number] [address] [place] [address], [place] [address] Oct, [facility] [address] [id number] [address] [place] [address], [place] [address] Oct, [facility] [address] [id number] [address] [place] [address], [place] [address] Oct, [facility] [address] [id number] [address] [place] [address], [place] [address] September, [facility] [address] [id number] [address] [place] [address], [place] [address] September, [facility] [address] [id number] [address] [place] [address], [place] [address] 30 Aug, 2011 [facility] [address] [id number] [address] [place] [address], [place] [address] Aug, [facility] [address] [id number] [address] [place] [address], [place] [address] 10 Aug, 2011 [facility] [address] [id number] [address] [place] [address], [place] [address] Aug, [facility] [address] [id number] [address] [place] [address], [place] [address] Aug, [facility] [address] [id number] [address] [place] [address], [place] [address] Aug, [facility] [address] [id number] [address] [place] [address], [place] [address] Aug, [facility] [address] [id number] [address] [place] [address], [place] [address] Jul, [facility] [address] [id number] [address] [place] [address], [place] [address] Jul, [facility] [address] [id number] [address] [place] [address], [place] [address] Jul, [facility] [address] [id number] [address] [place] [address], [place] [address] May, [facility] [address] [id number] [address] [place] [address], [place] [address] May, [facility] [address] [id number] [address] [place] [address], [place] [address] May, [facility] [address] [id number] [address] [place] [address], [place] [address] Apr, [facility] [address] [id number] [address] [place] [address], [place] [address] Apr, [facility] [address] [id number] [address] [place] [address], [place] [address] Mar, [facility] [address] [id number] [address] [place] [address], [place] [address] Mar, [facility] [address] [id number] [address] [place] [address], [place] [address] Mar, [facility] [address] [id number] [address] [place] [address] Mar, [facility] [address] [id number] [address] [place] [address] Mar, [facility] [address] [id number] [address] [place] [address] Mar, [facility] [address] [id number] [address] [place] [address] Feb, [facility] [address] [id number] [address] [place] [address] Feb, [facility] [address] [id number] [address] [place] [address] Feb, IMMUNIZATIONS No Known Immunizations SOCIAL HISTORY Never Assessed REASON FOR VISIT PLAN OF CARE VITAL SIGNS Height 72 in 2012-11-24 Weight 257.8 lbs 2012-11-24 Temperature 97.8 degrees Fahrenheit 2012-11-24 Heart Rate 80 bpm 2012-11-24 Respiratory Rate 18 2012-11-24 Blood pressure systolic 134 mmHg 2012-11-24 Blood pressure diastolic 68 mmHg 2012-11-24 MEDICATIONS Unknown Medications RESULTS No Results PROCEDURES Procedure Date Ordered Result Body Site GLYCATED HEMOGLOBIN TEST November 24, 2012 INSTRUCTIONS MEDICATIONS ADMINISTERED No Known Medications [...] foot infections x 3 2015 Hospitalization History [facility] - right big t oe removed 2018
--- OUTSIDE RECORDS SUMMARY | 2020-01-03 08:13 | XMS REPORT ---
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 Name Role Phone FERNY SILVERIO Unavailable PROBLEMS Type Condition ICD9-CM Code ANK11-RF Code Onset Dates Condition S tatus SNOMED Code Problem Hypertension I10 Active 5886114 3 Problem Hypoxia R09.02 Active 907396859 Problem COPD (chronic obstructive pulmonary disease) J44.9 Active 27087306 Problem Lumbar radiculopathy, chronic M54.16 Active 865403801 Problem halfway current use of insulin Z79.4 Active 281008772 Problem Recurrent major depressive disorder, in full remission F33.42 Active 060633365 Problem Hyperlipidemia, unspecified E78.5 Ac tive 07574894 Problem PAD (peripheral artery disease) I73.9 Active 947059832 Problem Type 2 diabetes mellitus with other specified complication E11.69 Active 836016501974 Problem Anxiety F41.9 Active 89542863 Problem Type 2 diabetes mellitus wit h diabetic peripheral angiopathy without gangrene E11.51 Active 244701240 Problem ED (erectile dysfunction) of organic origin N52.9 Active 020850208 Problem Arthritis M19.90 Active 5645298 Problem Morbid (severe) obesity due to excess calories E66 .01 Active 460068316 ALLERGIES No Information ENCOUNTERS Encounter Location Date Diagnosis [facility] [address] [facility] [id number] [address] [place] [address] September, Back pain M54.9 and Lumbar r adiculopathy, chronic M54.[address] [id number] [place] [address] September, Anxiety F41.9 [facility] [address] [id number] [place] [address] Aug, [facility] [address] [facility] [id number] [address] [place] [phone] 24 Aug, 2019 Back pain M54.9 and Lumbar r adiculopathy, chronic M54.16 [facility] [address] [id number] [address] [place] [address] 10 Aug, 2019 Anxiety F41.9 ; Back pain M5 4.9 and Lumbar radiculopathy, chronic M54.16 [facility] [address] [id number] [address] [place] [phone] 09 Aug, 2019 Lumbar radiculopathy, chroni c M54.16 ; Anxiety F41.9 ; Type 2 diabetes mellitus with other specified complication E11.69 and Hypertension I10 [facility] [address] [id number] [address] [place] [phone] 30 Jul, 2019 [facility] [address] [id number] [address] [place] [phone] 27 Jul, 2019 Lumbar radiculopathy, chroni c M54.16 ; Back pain M54.9 and Anxiety F41.9 [facility] [address] [id number] [address] [place] [address] 23 Jul, 2019 [facility] [address] [id number] [address] [place] [phone] 13 Jul, 2019 Anxiety F41.9 [facility] [address] [id number] [address] [place] [address] Jul, Anxiety F41.9 [facility] [address] [id number] [address] [place] [address] Jul, Back pain M54.9 [facility] [address] [id number] [address] [place] [address] Jul, Back pain M54.9 [facility] [address] [id number] [address] [place] [phone] 28 Jul, 2019 Lumbar radiculopathy, chroni c M54.16 [facility] [address] [id number] [address] [place] [phone] 28 Jul, 2019 Back pain M54.9 [facility] [address] [id number] [address] [place] [id number] 07 Jul, 2019 Encounter for Medicare sam malone wellness exam Z00.00 ; COPD (chronic obstructive [...] with other specified complication E11.69 [place] [address] [id number] [address] [place] [phone] 03 Jul, 2019 Back pain M54.9 [place] [address] [id number] [address] [place] [address] Jul, Anxiety F41.9 [place] [address] [id number] [address] [place] [phone] May, [place] [address] [id number] [address] [place] [address] May, Lumbar radiculopathy, chroni c M54.16 [place] [address] [id number] [address] [place] [address] May, Back pain M54.9 [place] [address] [id number] [address] [place] [address] May, [place] [address] [id number] [address] [place] [address] May, Back pain M54.9 and Anxiety F41.9 [place] [address] [id number] [address] [place] [address] May, [place] [address] [id number] [address] [place] [address] May, Type 2 diabetes mellitus wit h diabetic peripheral angiopathy without gangrene E11.51 ; Arthritis M19.90 ; ED (erectile dysfunction) of organic origin N52.9 ; Morbid (severe) obesity due to excess calories E66.01 and Lumbar radiculopathy, chronic M54.16 [facility] [address] [id number] [address] [place] [address] May, Diabetes E11.9 [facility] [address] [id number] [address] [place] [address] Apr, [facility] [address] [id number] [address] [place] [address] Apr, Back pain M54.9 [facility] [address] [facility] [id number] [address] [place] [address] Apr, [facility] [address] [facility] [id number] [address] [place] [address] Apr, Anxiety F41.9 [facility] [address] [facility] [id number] [address] [place] [address] Apr, Back pain M54.9 and Lumbar r adiculopathy, chronic M54.16 [facility] [address] [facility] [id number] [address] [place] [address] Apr, Back pain M54.9 ; Anxiety F4 1.9 and Lumbar radiculopathy, chronic M54.16 [facility] [address] [facility] [id number] [address] [place] [address] Mar, [facility] [address] [id number] [address] [place] [address] Mar, [facility] [address] [facility] [id number] [address] [place] [address] Mar, Back pain M54.9 [facility] [address] [facility] [id number] [address] [place] [address] Mar, [facility] [address] [place] [id number] [address] [place] [address] Feb, Type 2 diabetes mellitus wit h diabetic peripheral angiopathy without gangrene E11.51 ; Lumbar radiculopathy, chronic M54.16 ; ED (erectile dysfunction) of organic origin N52.9 ; Encounter for immunization Z23 ; COPD (chronic obstructive pulmonary disease) J44.9 and Anxiety F41.9 [facility] [address] [id number] [address] [place] [address] Feb, Back pain M54.9 [facility] [address] [id number] [address] [place] [address] Feb, [facility] [address] [id number] [address] [place] [address] Feb, [facility] [address] [id number] [address] [place] [address] Feb, [facility] [address] [id number] [address] [place] [address] Feb, Back pain M54.9 [facility] [address] [id number] [address] [place] [address] Feb, [facility] [address] [id number] [address] [place] [id number] Jan, Anxiety F41.9 [facility] [address] [id number] [address] [place] [address] Jan, Anxiety F41.9 [facility] [address] [id number] [address] [place] [address] Jan, [facility] [address] [id number] [address] [place] [address] Jan, [facility] [address] [id number] [address] [place] [address] Jan, Back pain M54.9 [facility] [address] [id number] [address] [place] [phone] Jan, [facility] [address] [id number] [address] [place] [address] Dec, Acute non-recurrent frontal sinusitis J01.10 [facility] [address] [id number] [address] [place] [address] Dec, Acute non-recurrent frontal sinusitis J01.10 [facility] [address] [id number] [address] [place] [address] Dec, Type 2 diabetes mellitus wit h diabetic peripheral angiopathy without gangrene E11.51 ; Lumbar radiculopathy, chronic M54.16 ; Recurrent major depressive disorder, in full remission F33.42 and Anxiety F41.9 [facility] [address] [id number] [address] [place] [address] Dec, [facility] [address] [id number] [address] [place] [address] Nov, Anxiety F41.9 [facility] [address] [id number] [address] [place] [address] Nov, [facility] [address] [id number] [address] [place] [address] Nov, Back pain M54.9 [facility] [address] [id number] [address] [place] [address] Nov, [facility] [address] [id number] [address] [place] [phone] Nov, Back pain M54.9 [facility] [address] [id number] [address] [place] [address] Nov, Anxiety F41.9 [facility] [address] [id number] [address] [place] [phone] Nov, [facility] [address] [id number] [address] [place] [id number] Oct, Back pain M54.9 [facility] [address] [id number] [address] [place] [address] Oct, [facility] [address] [id number] [address] [place] [address] Oct, [facility] [address] [id number] [address] [place] [address] Oct, [facility] [address] [id number] [address] [place] [address] September, Back pain M54.9 [facility] [address] [id number] [address] [place] [address] September, [facility] [address] [id number] [address] [place] [address] September, [facility] [address] [id number] [address] [place] [address] September, [facility] [address] [id number] [address] [place] [address] Aug, Back pain M54.9 [facility] [address] [id number] [address] [place] [address] Aug, Anxiety F41.9 [facility] [address] [id number] [address] [place] [address] Aug, [facility] [address] [id number] [address] [place] [address] Aug, Pressure ulcer of other site , stage 3 L89.893 and COPD (chronic obstructive pulmonary disease) J44.9 [facility] [address] [id number] [address] [place] [address] Aug, History of smoking Z87.891 [facility] [address] [id number] [address] [place] [address] Jul, Type 2 diabetes mellitus wit h diabetic peripheral angiopathy without gangrene E11.51 [facility] [address] [id number] [address] [place] [id number] Jul, Back pain M54.9 [facility] [address] [id number] [address] [place] [address] 19 Jul, 2018 Anxiety F41.9 [facility] [address] [id number] [address] [place] [phone] 18 Jul, 2018 [facility] [address] [id number] [address] [place] [id number] 13 Jul, 2018 Back pain M54.9 [facility] [address] [id number] [address] [place] [address] 12 Jul, 2018 Back pain M54.9 [facility] [address] [id number] [address] [place] [phone] 11 Jul, 2018 Lumbar radiculopathy, chroni c M54.16 ; Hypertension I10 and Type 2 diabetes mellitus with diabetic peripheral angiopathy without gangrene E11.51 [facility] [address] [id number] [address] [place] [phone] Jul, Back pain M54.9 [facility] [address] [id number] [address] [place] [address] Jul, Back pain M54.9 and Anxiety F41.9 [facility] [address] [id number] [address] [place] [address] Jul, [facility] [address] [id number] [address] [place] [address] May, Back pain M54.9 and Anxiety F41.9 [facility] [address] [id number] [address] [place] [address] May, [facility] [address] [id number] [address] [place] [phone] Apr, Radiculopathy of lumbar rhiannon on M54.16 ; Back pain M54.9 and Anxiety F41.9 [facility] [address] [id number] [address] [place] [address] Apr, Diabetes E11.9 ; Muscle spas m M62.838 and Lumbar radiculopathy, chronic M54.16 [facility] [address] [id number] [address] [place] [address] Apr, [facility] [address] [id number] [address] [place] [address] Apr, [facility] [address] [id number] [address] [place] [address] Mar, Back pain M54.9 and Anxiety F41.9 [facility] [address] [id number] [address] [place] [address] Mar, [facility] [address] [id number] [address] [place] [address] Mar, [facility] [address] [id number] [address] [place] [address] Mar, [facility] [address] [id number] [address] [place] [id number] Mar, Encounter for immunization Z 23 [facility] [address] [id number] [address] [place] [address] Feb, Back pain M54.9 and Anxiety F41.9 [facility] [address] [id number] [address] [place] [address] Feb, Back pain M54.9 and Anxiety F41.9 [facility] [address] [id number] [address] [place] [address] Jan, Back pain M54.9 and Anxiety F41.9 [facility] [address] [id number] [address] [place] [address] Jan, [facility] [address] [id number] [address] [place] [address] Dec, [facility] [address] [id number] [address] [place] [address] Dec, Back pain M54.9 and Anxiety F41.9 [facility] [address] [id number] [address] [place] [address] 13 Dec, 2017 Diabetes E11.9 ; Type 2 diab etes mellitus with diabetic peripheral angiopathy without gangrene E11.51 ; Lumbar radiculopathy, chronic M54.16 ; COPD (chronic obstructive pulmonary disease) J44.9 and Anxiety F41.9 [facility] [address] [id number] [address] [place] [address] Dec, Back pain M54.9 and Anxiety F41.9 [place] [address] [id number] [address] [place] [address] Nov, Back pain M54.9 and Anxiety F41.9 [place] [address] [id number] [address] [place] [phone] Oct, [place] [address] [id number] [address] [place] [address] Oct, Back pain M54.9 and Anxiety F41.9 [place] [address] [id number] [address] [place] [address] September, Anxiety F41.9 and Back pain M54.9 [place] [address] [id number] [address] [place] [address] September, Diabetes E11.9 ; Hypertensio n I10 ; COPD (chronic obstructive pulmonary disease) J44.9 and Lumbar radiculopathy, chronic M54.16 [place] [id number] [id number] [address] [place] [address] September, Anxiety F41.9 [facility] [address] [id number] [address] [place] [address] Aug, [facility] [address] [id number] [address] [place] [address] Aug, [facility] [address] [id number] [address] [place] [address] Aug, Anxiety F41.9 and Back pain M54.9 [facility] [address] [id number] [address] [place] [address] Aug, Medicare annual wellness vis it, initial [...] and halfway current use of insulin Z79.4 [facility] [address] [id number] [address] [place] [id number] Jul, Back pain M54.9 [facility] [address] [id number] [address] [place] [address] Jul, [facility] [address] [id number] [address] [place] [address] Jul, Anxiety F41.9 and Back pain M54.9 [facility] [address] [id number] [address] [place] [address] Jul, Diabetes E11.9 [facility] [address] [id number] [address] [place] [address] May, [facility] [address] [id number] [address] [place] [address] May, Diabetes E11.9 ; Anxiety F41 .9 ; Back pain M54.9 and COPD (chronic obstructive pulmonary disease) J44.9 [facility] [address] [id number] [address] [place] [address] May, Back pain M54.9 [facility] [address] [id number] [address] [place] [address] May, [facility] [address] [id number] [address] [place] [address] Apr, Back pain M54.9 [facility] [address] [id number] [address] [place] [phone] 30 Mar, 2017 Back pain M54.9 [facility] [address] [id number] [address] [place] [address] 20 Mar, 2017 [facility] [address] [id number] [address] [place] [id number] 16 Mar, 2017 [facility] [address] [id number] [address] [place] [address] 14 Mar, 2017 Radiculopathy of lumbar rhiannon on M54.16 [facility] [address] [id number] [address] [place] [id number] 13 Mar, 2017 [facility] [address] [id number] [address] [place] [phone] 07 Mar, 2017 Encounter for immunization Z 23 and Lumbar radiculopathy, chronic M54.16 [facility] [address] [id number] [address] [place] [address] Mar, Back pain M54.9 and Anxiety F41.9 [facility] [address] [id number] [address] [place] [phone] 10 Feb, 2017 Acute bilateral low back boy n with left-sided sciatica M54.42 and Acute bilateral low back pain with right-sided sciatica M54.41 [facility] [address] [id number] [address] [place] [address] Feb, [facility] [address] [id number] [address] [place] [phone] Feb, Back pain M54.9 [facility] [address] [id number] [address] [place] [phone] 05 Jan, 2017 Back pain M54.9 and Anxiety F41.9 [facility] [address] [id number] [address] [place] [phone] 05 Jan, 2017 Diabetes E11.9 [facility] [address] [id number] [address] [place] [phone] 14 Dec, 2016 Diabetes E11.9 ; Back pain M 54.9 ; Anxiety F41.9 and Insulin long- term use Z79.4 [facility] [address] [id number] [address] [place] [phone] 09 Dec, 2016 Anxiety F41.9 [facility] [address] [id number] [address] [place] [phone] Dec, Back pain M54.9 [facility] [address] [id number] [address] [place] [phone] Nov, Back pain M54.9 [facility] [address] [id number] [address] [place] [phone] Oct, Back pain M54.9 and Anxiety F41.9 [facility] [address] [facility] [id number] [address] [place] [phone] September, Back pain M54.9 [facility] [address] [id number] [address] [place] [phone] September, Back pain M54.9 and Anxiety F41.9 [facility] [address] [facility] [id number] [address] [place] [phone] Aug, Diabetes E11.9 ; Anxiety F41 .9 ; Back pain M54.9 and PAD (peripheral artery disease) I73.9 [facility] [address] [id number] [address] [place] [phone] Aug, Anxiety F41.9 [facility] [address] [id number] [address] [place] [phone] 14 Aug, 2016 Back pain M54.9 [facility] [address] [facility] [id number] [address] [place] [phone] 23 Jul, 2016 Back pain M54.9 [facility] [address] [facility] [id number] [address] [place] [phone] Jul, Back pain M54.9 [facility] [address] [id number] [address] [place] [phone] 23 Jul, 2016 Back pain M54.9 [facility] [address] [id number] [address] [place] [id number] 16 Jul, 2016 Dorsalgia M54.9 [facility] [address] [id number] [address] [place] [phone] 14 Jul, 2016 [facility] [address] [facility] [id number] [address] [place] [phone] May, Back pain M54.9 [facility] [address] [id number] [address] [place] [phone] May, Diabetes E11.9 ; Anxiety F41 .9 ; Port catheter in place Z95.828 ; Encounter for immunization Z23 and Insulin long-term use Z79.4 [facility] [address] [id number] [address] [place] [address] Apr, Back pain M54.9 [facility] [address] [id number] [address] [place] [address] Apr, Back pain M54.9 [facility] [address] [facility] [id number] [address] [place] [address] Apr, [facility] [address] [id number] [address] [place] [address] Apr, Back pain M54.9 [facility] [address] [id number] [address] [place] [address] Mar, COPD (chronic obstructive pu lmonary disease) J44.9 [facility] [address] [id number] [address] [place] [address] Feb, [facility] [address] [id number] [address] [place] [id number] 30 Jan, 2016 [facility] [address] [facility] [id number] [address] [place] [address] Jan, [facility] [address] [id number] [address] [place] [address] Jan, [facility] [address] [id number] [address] [place] [address] Jan, [facility] [address] [id number] [address] [place] [address] Dec, Diabetes E11.9 ; Hypoxia R09 .02 and Back pain M54.9 [facility] [address] [id number] [address] [place] [address] Dec, [facility] [address] [id number] [address] [place] [address] Nov, [facility] [address] [id number] [address] [place] [address] Oct, Anxiety F41.9 [facility] [address] [id number] [address] [place] [address] Oct, Back pain M54.9 [facility] [address] [id number] [address] [place] [address] September, Back pain M54.9 [facility] [address] [id number] [address] [place] [address] September, Diabetes E11.9 [facility] [address] [id number] [address] [place] [address] September, [facility] [address] [id number] [address] [place] [address] September, Diabetes E11.9 ; Insulin sarai g-term use Z79.4 and Back pain M54.9 [facility] [address] [id number] [address] [place] [address] Aug, Back pain M54.9 [facility] [address] [facility] [id number] [address] [place] [address] Aug, Back pain M54.9 ; Anxiety F4 1.9 and Arthropathy, unspecified M12.9 [facility] [address] [facility] [id number] [address] [place] [address] Jul, Back pain M54.9 [facility] [address] [facility] [id number] [address] [place] [address] Jul, Anxiety F41.9 [facility] [address] [facility] [id number] [address] [place] [address] Jul, Back pain M54.9 [facility] [address] [facility] [id number] [address] [place] [address] Jul, [facility] [address] [facility] [id number] [address] [place] [address] Jul, [facility] [address] [facility] [id number] [address] [place] [address] May, Back pain M54.9 ; Diabetes E 11.9 ; Insulin long-term use Z79.4 ; COPD (chronic obstructive pulmonary disease) J44.9 and Hypertension I10 [facility] [address] [facility] [id number] [address] [place] [address] May, Chronic pain G89.29 [facility] [address] [facility] [id number] [address] [place] [address] Apr, [facility] [address] [facility] [id number] [address] [place] [address] Apr, [facility] [address] [facility] [id number] [address] [place] [address] Mar, [facility] [address] [facility] [id number] [address] [place] [address] Mar, Encounter for immunization Z 23 and Diabetes E11.9 [facility] [address] [facility] [id number] [address] [place] [address] Feb, [facility] [address] [facility] [id number] [address] [place] [address] Feb, [facility] [address] [id number] [address] [place] [id number] 23 Jan, 2015 [facility] [address] [id number] [address] [place] [phone] Jan, [facility] [address] [id number] [address] [place] [address] Dec, [facility] [address] [id number] [address] [place] [address] Dec, [facility] [address] [id number] [address] [place] [id number] Dec, Unspecified arthropathy, sit e unspecified 716.90 and Diabetes mellitus type 2, uncontrolled 250.02 [facility] [address] [id number] [address] [place] [address], [place] [address] Dec, [facility] [address] [id number] [address] [place] [id number] Nov, [facility] [address] [id number] [address] [place] [phone] Oct, [facility] [address] [id number] [address] [place] [address] September, [facility] [address] [id number] [address] [place] [phone] September, [facility] [address] [id number] [address] [place] [phone] September, [facility] [address] [id number] [address] [place] [address] September, [facility] [address] [id number] [address] [place] [phone] Aug, [facility] [address] [id number] [address] [place] [phone] Aug, [facility] [address] [id number] [address] [place] [id number] Jul, [facility] [address] [id number] [address] [place] [address], [place] [address] 18 Jul, 2014 [facility] [address] [id number] [address] [place] [address], [place] [address] 16 Jul, 2014 [facility] [address] [id number] [address] [place] [address], [place] [address] 16 Jul, 2014 [facility] [address] [id number] [address] [place] [address], [place] [address] 16 Jul, 2014 [facility] [address] [id number] [address] [place] [address], [place] [address] 16 Jul, 2014 [facility] [address] [id number] [address] [place] [address], [place] [address] 16 Jul, 2014 [facility] [address] [id number] [address] [place] [address], [place] [address] 16 Jul, 2014 [facility] [address] [id number] [address] [place] [address], [place] [address] 16 Jul, 2014 [facility] [address] [id number] [address] [place] [address], [place] [address] 13 Jul, 2014 [facility] [address] [id number] [address] [place] [address], [place] [address] 13 Jul, 2014 [facility] [address] [id number] [address] [place] [address], [place] [address] 09 Jul, 2014 [facility] [address] [id number] [address] [place] [address], [place] [address] 09 Jul, 2014 [facility] [address] [id number] [address] [place] [address], [place] [address] 17 Jul, 2014 [facility] [address] [id number] [address] [place] [address], [place] [address] 17 Jul, 2014 [facility] [address] [id number] [address] [place] [address], [place] [address] 16 Jul, 2014 [facility] [address] [id number] [address] [place] [address], [place] [address] 16 Jul, 2014 [facility] [address] [id number] [address] [place] [address], [place] [address] 16 Jul, 2014 [facility] [address] [id number] [address] [place] [address], [place] [address] 16 Jul, 2014 [facility] [address] [id number] [address] [place] [address], [place] [address] 16 Jul, 2014 [facility] [address] [id number] [address] [place] [address], [place] [address] 16 Jul, 2014 [facility] [address] [id number] [address] [place] [address], [place] [address] 16 Jul, 2014 [facility] [address] [id number] [address] [place] [address], [place] [address] 16 Jul, 2014 [facility] [address] [id number] [address] [place] [address], [place] [address] 16 Jul, 2014 [facility] [address] [id number] [address] [place] [address], [place] [address] 16 Jul, 2014 [facility] [address] [id number] [address] [place] [address], [place] [address] 16 Jul, 2014 [facility] [address] [id number] [address] [place] [address], [place] [address] 16 Jul, 2014 [facility] [address] [id number] [address] [place] [address], [place] [address] Jul, 2014 [facility] [address] [id number] [address] [place] [address], [place] [address] 16 Jul, 2014 [facility] [address] [id number] [address] [place] [address], [place] [address] May, [facility] [address] [id number] [address] [place] [id number] May, [facility] [address] [id number] [address] [place] [address] May, [facility] [address] [id number] [address] [place] [address], [place] [address] May, [facility] [address] [id number] [address] [place] [address], [place] [address] May, [facility] [address] [id number] [address] [place] [address], [place] [address] May, [facility] [address] [id number] [address] [place] [address], [place] [address] May, [facility] [address] [id number] [address] [place] [address], [place] [address] May, [facility] [address] [id number] [address] [place] [address], [place] [address] May, [facility] [address] [id number] [address] [place] [address], [place] [address] May, [facility] [address] [id number] [address] [place] [address], [place] [address] Apr, [facility] [address] [id number] [address] [place] [address], [place] [address] Apr, [facility] [address] [id number] [address] [place] [address], [place] [address] Apr, [facility] [address] [id number] [address] [place] [address], [place] [address] Apr, [facility] [address] [id number] [address] [place] [address], [place] [address] Apr, [facility] [address] [id number] [address] [place] [address], [place] [address] Apr, [facility] [address] [id number] [address] [place] [address], [place] [address] Mar, [facility] [address] [id number] [address] [place] [address], [place] [address] Mar, [facility] [address] [id number] [address] [place] [address], [place] [address] Mar, [facility] [address] [id number] [address] [place] [address], [place] [address] Mar, [facility] [address] [id number] [address] [place] [address], [place] [address] Mar, [facility] [address] [id number] [address] [place] [address], [place] [address] Mar, [facility] [address] [id number] [address] [place] [address], [place] [address] Mar, [facility] [address] [id number] [address] [place] [address], [place] [address] Mar, [facility] [address] [id number] [address] [place] [address], [place] [address] Mar, [facility] [address] [id number] [address] [place] [address], [place] [address] Mar, [facility] [address] [id number] [address] [place] [address], [place] [address] Mar, [facility] [address] [id number] [address] [place] [address], [place] [address] Feb, [facility] [address] [id number] [address] [place] [address], [place] [address] 30 Feb, 2014 [facility] [address] [id number] [address] [place] [address], [place] [address] 15 Feb, 2014 [facility] [address] [id number] [address] [place] [address], [place] [address] 15 Feb, 2014 [facility] [address] [id number] [address] [place] [address], [place] [address] Feb, [facility] [address] [id number] [address] [place] [address], [place] [address] Feb, [facility] [address] [id number] [address] [place] [address], [place] [address] Feb, [facility] [address] [id number] [address] [place] [address], [place] [address] Feb, [facility] [address] [id number] [address] [place] [address], [place] [address] Feb, [facility] [address] [id number] [address] [place] [address], [place] [address] Feb, [facility] [address] [id number] [address] [place] [address], [place] [address] Jan, [facility] [address] [id number] [address] [place] [address], [place] [address] Jan, [facility] [address] [id number] [address] [place] [address], [place] [address] Jan, [facility] [address] [id number] [address] [place] [address], [place] [address] Jan, [facility] [address] [id number] [address] [place] [address], [place] [address] Jan, [facility] [address] [id number] [address] [place] [address], [place] [address] Jan, [facility] [address] [id number] [address] [place] [address], [place] [address] Jan, [facility] [address] [id number] [address] [place] [address], [place] [address] Dec, [facility] [address] [id number] [address] [place] [address], [place] [address] Dec, [facility] [address] [id number] [address] [place] [address], [place] [address] Dec, [facility] [address] [id number] [address] [place] [address], [place] [address] Dec, [facility] [address] [id number] [address] [place] [address], [place] [address] Dec, [facility] [address] [id number] [address] [place] [address], [place] [address] Dec, [facility] [address] [id number] [facility] [place] [address] Dec, [facility] [address] [id number] [address] [place] [address], [place] [address] Dec, [facility] [address] [id number] [address] [place] [address], [place] [address] Oct, [facility] [address] [id number] [address] [place] [address], [place] [address] Oct, [facility] [address] [id number] [address] [place] [address], [place] [address] September, [facility] [address] [id number] [address] [place] [address], [place] [address] September, [facility] [address] [id number] [address] [place] [address], [place] [address] September, [facility] [address] [id number] [address] [place] [address], [place] [address] September, [facility] [address] [id number] [address] [place] [address], [place] [address] September, [facility] [address] [id number] [address] [place] [address], [place] [address] September, [facility] [address] [id number] [address] [place] [address], [place] [address] September, [facility] [address] [id number] [address] [place] [address], [place] [address] Aug, [facility] [address] [id number] [address] [place] [address], [place] [address] Aug, [facility] [address] [id number] [address] [place] [address], [place] [address] Jul, [facility] [address] [id number] [address] [place] [address], [place] [address] Jul, [facility] [address] [id number] [address] [place] [address], [place] [address] 17 Jul, 2013 [facility] [address] [id number] [address] [place] [address], [place] [address] 17 Jul, 2013 [facility] [address] [id number] [address] [place] [address], [place] [address] 14 Jul, 2013 [facility] [address] [id number] [address] [place] [address], [place] [address] 14 Jul, 2013 [facility] [address] [id number] [address] [place] [address], [place] [address] Jul, [facility] [address] [id number] [address] [place] [address], [place] [address] Jul, [facility] [address] [id number] [address] [place] [address], [place] [address] 15 May, 2013 [facility] [address] [id number] [address] [place] [address], [place] [address] 15 May, 2013 [facility] [address] [id number] [address] [place] [address], [place] [address] May, [facility] [address] [id number] [address] [place] [address], [place] [address] May, [facility] [address] [id number] [address] [place] [address], [place] [address] Apr, [facility] [address] [id number] [address] [place] [address], [place] [address] Mar, [facility] [address] [id number] [address] [place] [address], [place] [address] Mar, [facility] [address] [id number] [address] [place] [address], [place] [address] Mar, [facility] [address] [id number] [address] [place] [address], [place] [address] Mar, [facility] [address] [id number] [address] [place] [address], [place] [address] Mar, [facility] [address] [id number] [address] [place] [address], [place] [address] Mar, [facility] [address] [id number] [address] [place] [address], [place] [address] Mar, [facility] [address] [id number] [address] [place] [address], [place] [address] Mar, [facility] [address] [id number] [address] [place] [id number] Mar, [facility] [address] [id number] [address] [place] [address], [place] [address] Mar, [facility] [address] [id number] [address] [place] [address], [place] [address] Mar, [facility] [address] [id number] [address] [place] [address], [place] [address] Mar, [facility] [address] [id number] [address] [place] [address], [place] [address] Feb, [facility] [address] [id number] [address] [place] [address], [place] [address] Feb, [facility] [address] [id number] [address] [place] [address], [place] [address] Feb, [facility] [address] [id number] [address] [place] [address] Feb, [facility] [address] [id number] [address] [place] [id number] Feb, [facility] [address] [id number] [address] [place] [address], [place] [address] Jan, [facility] [address] [id number] [address] [place] [address], [place] [address] Dec, [facility] [address] [id number] [address] [place] [address], [place] [address] Dec, [facility] [address] [id number] [address] [place] [address], [place] [address] Dec, [facility] [address] [id number] [address] [place] [address], [place] [address] Nov, [facility] [address] [id number] [address] [place] [address], [place] [address] Nov, [facility] [address] [id number] [address] [place] [address], [place] [address] Nov, [facility] [address] [id number] [address] [place] [address], [place] [address] Oct, [facility] [address] [id number] [address] [place] [address], [place] [address] Oct, [facility] [address] [id number] [address] [place] [address], [place] [address] Oct, [facility] [address] [id number] [address] [place] [address], [place] [address] September, [facility] [address] [id number] [address] [place] [address], [place] [address] September, [facility] [address] [id number] [address] [place] [address], [place] [address] September, [facility] [address] [id number] [address] [place] [address], [place] [address] September, [facility] [address] [id number] [address] [place] [address], [place] [address] September, [facility] [address] [id number] [address] [place] [address], [place] [address] Aug, [facility] [address] [id number] [address] [place] [address], [place] [address] Aug, [facility] [address] [id number] [address] [place] [address], [place] [address] Aug, [facility] [address] [id number] [address] [place] [address], [place] [address] Jul, [facility] [address] [id number] [address] [place] [address], [place] [address] Jul, [facility] [address] [id number] [address] [place] [address], [place] [address] Jul, [facility] [address] [id number] [address] [place] [address], [place] [address] Jul, [facility] [address] [id number] [address] [place] [address], [place] [address] Jul, [facility] [address] [id number] [address] [place] [address], [place] [address] Jul, [facility] [address] [id number] [address] [place] [address], [place] [address] Jul, [facility] [address] [id number] [address] [place] [address], [place] [address] May, [facility] [address] [id number] [address] [place] [address], [place] [address] May, [facility] [address] [id number] [address] [place] [address], [place] [address] May, [facility] [address] [id number] [address] [place] [address], [place] [address] Apr, [facility] [address] [id number] [address] [place] [address], [place] [address] Apr, [facility] [address] [id number] [address] [place] [address], [place] [address] Apr, [facility] [address] [id number] [address] [place], [place] [address], [place] [address] Apr, [facility] [address] [id number] [address] [place] [address], [place] [address] Apr, [facility] [address] [id number] [address] [place] [address], [place] [address] 29 Mar, 2012 [facility] [address] [id number] [address] [place] [address], [place] [address] Mar, [facility] [address] [id number] [address] [place] [address], [place] [address] Mar, [facility] [address] [id number] [address] [place] [address], [place] [address] Mar, [facility] [address] [id number] [address] [place] [address], [place] [address] Feb, [facility] [address] [id number] [address] [place] [address], [place] [address] Feb, [facility] [address] [id number] [address] [place] [address], [place] [address] Feb, [facility] [address] [id number] [address] [place] [address], [place] [address] Feb, [facility] [address] [id number] [address] [place] [address], [place] [address] Feb, [facility] [address] [id number] [address] [place] [address], [place] [address] Jan, [facility] [address] [id number] [address] [place] [address], [place] [address] Dec, [facility] [address] [id number] [address] [place] [address], [place] [address] Dec, [facility] [address] [id number] [address] [place] [address], [place] [address] Dec, [facility] [address] [id number] [address] [place] [address], [place] [address] Nov, [facility] [address] [id number] [address] [place] [address], [place] [address] Nov, [facility] [address] [id number] [address] [place] [address], [place] [address] Nov, [facility] [address] [id number] [address] [place] [address], [place] [address] Oct, [facility] [address] [id number] [address] [place] [address], [place] [address] Oct, [facility] [address] [id number] [address] [place] [address], [place] [address] Oct, [facility] [address] [id number] [address] [place] [address], [place] [address] Oct, [facility] [address] [id number] [address] [place] [address], [place] [address] September, [facility] [address] [id number] [address] [place] [address], [place] [address] September, [facility] [address] [id number] [address] [place] [address], [place] [address] 30 Aug, 2011 [facility] [address] [id number] [address] [place] [address], [place] [address] Aug, [facility] [address] [id number] [address] [place] [address], [place] [address] Aug, [facility] [address] [id number] [address] [place] [address], [place] [address] Aug, [facility] [address] [id number] [address] [place] [address], [place] [address] Aug, [facility] [address] [id number] [address] [place] [address], [place] [address] Aug, [facility] [address] [id number] [address] [place] [address], [place] [address] Aug, [facility] [address] [id number] [address] [place] [address], [place] [address] Jul, [facility] [address] [id number] [address] [place] [address], [place] [address] Jul, [facility] [address] [id number] [address] [place] [address], [place] [address] 14 Jul, 2011 [facility] [address] [id number] [address] [address] May, [facility] [address] [id number] [address] [place] [address] May, [facility] [address] [id number] [address] [place] [address] May, [facility] [address] [id number] [address] [place] [id number] Apr, [facility] [address] [id number] [address] [place] [address] Apr, [facility] [address] [id number] [address] [place] [address] Mar, [facility] [address] [id number] [address] [place] [address] Mar, [facility] [address] [id number] [address] [place] [address] Mar, [facility] [address] [id number] [address] [place] [address] Mar, [facility] [address] [id number] [address] [place] [address] Mar, [facility] [address] [id number] [address] [place] [address] Mar, [facility] [address] [id number] [address] [place] [address] Feb, [facility] [address] [id number] [address] [place] [address] Feb, [facility] [address] [id number] [address] [place] [id number] Feb, IMMUNIZATIONS No Known Immunizations SOCIAL HISTORY [...] x 3 2016 Hospitalization History [facility] - right big t oe removed 2019
--- OUTSIDE RECORDS SUMMARY | 2020-01-03 08:13 | XMS REPORT ---
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 Name Role Phone Migration, Doctor Unavailable Unavailable PROBLEMS Type Condition ICD9-CM Code GGH42-XP Code Onset Dates Condition S tatus SNOMED Code Problem Hypertension I10 Active 3841372 3 Problem Hypoxia R09.02 Active 088660865 Problem COPD (chronic obstructive pulmonary disease) J44.9 Active 37468281 Problem Lumbar radiculopathy, chronic M54.16 Active 173557922 Problem custodial current use of insulin Z79.4 Active 151807441 Problem Recurrent major depressive disorder, in full remission F33.42 Active 412076221 Problem Hyperlipidemia, unspecified E78.5 Ac tive 66394090 Problem PAD (peripheral artery disease) I73.9 Active 641323111 Problem Type 2 diabetes mellitus with other specified complication E11.69 Active 993849849798 Problem Anxiety F41.9 Active 95609750 Problem Type 2 diabetes mellitus wit h diabetic peripheral angiopathy without gangrene E11.51 Active 989263603 Problem ED (erectile dysfunction) of organic origin N52.9 Active 589792866 Problem Arthritis M19.90 Active 1009494 Problem Morbid (severe) obesity due to excess calories E66 .01 Active 928724501 ALLERGIES No Information ENCOUNTERS Encounter Location Date Diagnosis [facility] [address] [facility] [id number] [address] [place] [address] September, Back pain M54.9 and Lumbar r adiculopathy, chronic M54.[address] [id number] [address] September, Anxiety F41.9 [facility] [address] [id number] [place] [address] Aug, [facility] [address] [facility] [id number] [address] [place] [address] Aug, Back pain M54.9 and Lumbar r adiculopathy, chronic M54.16 [facility] [address] [id number] [address] [place] [id number] 10 Aug, 2019 Anxiety F41.9 ; Back pain M5 4.9 and Lumbar radiculopathy, chronic M54.16 [facility] [address] [id number] [address] [place] [address] 09 Aug, 2019 Lumbar radiculopathy, chroni c M54.16 ; Anxiety F41.9 ; Type 2 diabetes mellitus with other specified complication E11.69 and Hypertension I10 [facility] [address] [id number] [address] [place] [id number] 30 Jul, 2019 [facility] [address] [id number] [address] [place] [id number] 27 Jul, 2019 Lumbar radiculopathy, chroni c M54.16 ; Back pain M54.9 and Anxiety F41.9 [facility] [address] [id number] [address] [place] [id number] 23 Jul, 2019 [facility] [address] [id number] [address] [place] [id number] 13 Jul, 2019 Anxiety F41.9 [facility] [address] [id number] [address] [place] [address] 12 Jul, 2019 Anxiety F41.9 [facility] [address] [id number] [address] [place] [id number] 02 Jul, 2019 Back pain M54.9 [facility] [address] [id number] [address] [place] [address] Jul, Back pain M54.9 [facility] [address] [id number] [address] [place] [id number] 28 Jul, 2019 Lumbar radiculopathy, chroni c M54.16 [facility] [address] [id number] [address] [place] [address] Jul, Back pain M54.9 [facility] [address] [place] [id number] [address] [place] [id number] 07 Jul, 2019 Encounter for Medicare sam [...] diabetes mellitus with other specified complication E11.69 [place] [address] [place] [id number] [address] [place] [id number] 03 Jul, 2019 Back pain M54.9 [place] [address] [place] [id number] [address] [place] [address] Jul, Anxiety F41.9 [place] [address] [place] [id number] [address] [place] [address] May, [place] [address] [place] [id number] [address] [place] [address] May, Lumbar radiculopathy, chroni c M54.16 [place] [address] [place] [id number] [address] [place] [address] May, Back pain M54.9 [place] [address] [place] [id number] [address] [place] [address] May, [place] [address] [place] [id number] [address] [place] [address] May, Back pain M54.9 and Anxiety F41.9 [place] [address] [place] [id number] [address] [place] [address] May, [place] [address] [place] [id number] [address] [place] [address] May, Type 2 diabetes mellitus wit h diabetic peripheral angiopathy without gangrene E11.51 ; Arthritis M19.90 ; ED (erectile dysfunction) of organic origin N52.9 ; Morbid (severe) obesity due to excess calories E66.01 and Lumbar radiculopathy, chronic M54.16 [facility] [address] [id number] [address] [place] [address] May, Diabetes E11.9 [facility] [address] [id number] [address] [place] [address] Apr, [facility] [address] [id number] [address] [place] [address] Apr, Back pain M54.9 [facility] [address] [id number] [address] [place] [address] Apr, [facility] [address] [id number] [address] [place] [address] Apr, Anxiety F41.9 [facility] [address] [id number] [address] [place] [address] Apr, Back pain M54.9 and Lumbar r adiculopathy, chronic M54.16 [facility] [address] [id number] [address] [place] [address] Apr, Back pain M54.9 ; Anxiety F4 1.9 and Lumbar radiculopathy, chronic M54.16 [facility] [address] [id number] [address] [place] [address] Mar, [facility] [address] [id number] [address] [place] [address] Mar, [facility] [address] [id number] [address] [place] [address] Mar, Back pain M54.9 [facility] [address] [id number] [address] [place] [address] Mar, [facility] [address] [id number] [address] [place] [address] Feb, Type 2 diabetes mellitus wit h diabetic peripheral angiopathy without gangrene E11.51 ; Lumbar radiculopathy, chronic M54.16 ; ED (erectile dysfunction) of organic origin N52.9 ; Encounter for immunization Z23 ; COPD (chronic obstructive pulmonary disease) J44.9 and Anxiety F41.9 [facility] [address] [id number] [address] [place] [address] Feb, Back pain M54.9 [facility] [address] [id number] [address] [place] [id number] Feb, [facility] [address] [id number] [address] [place] [address] Feb, [facility] [address] [id number] [address] [place] [address] Feb, [facility] [address] [id number] [address] [place] [address] Feb, Back pain M54.9 [facility] [address] [id number] [address] [place] [id number] Feb, [facility] [address] [id number] [address] [place] [address] Jan, Anxiety F41.9 [facility] [address] [id number] [address] [place] [phone] Jan, Anxiety F41.9 [facility] [address] [id number] [address] [place] [address] Jan, [facility] [address] [id number] [address] [place] [address] Jan, [facility] [address] [id number] [address] [place] [address] Jan, Back pain M54.9 [facility] [address] [id number] [address] [place] [address] Jan, [facility] [address] [id number] [address] [place] [address] Dec, Acute non-recurrent frontal sinusitis J01.10 [facility] [address] [id number] [address] [place] [address] Dec, Acute non-recurrent frontal sinusitis J01.10 [facility] [address] [id number] [address] [place] [address] Dec, Type 2 diabetes mellitus wit h diabetic peripheral angiopathy without gangrene E11.51 ; Lumbar radiculopathy, chronic M54.16 ; Recurrent major depressive disorder, in full remission F33.42 and Anxiety F41.9 [facility] [address] [id number] [address] [place] [address] Dec, [facility] [address] [id number] [address] [place] [address] Nov, Anxiety F41.9 [facility] [address] [id number] [address] [place] [address] Nov, [facility] [address] [id number] [address] [place] [address] Nov, Back pain M54.9 [facility] [address] [id number] [address] [place] [address] Nov, [facility] [address] [id number] [address] [place] [address] Nov, Back pain M54.9 [facility] [address] [id number] [address] [place] [id number] Nov, Anxiety F41.9 [facility] [address] [id number] [address] [place] [address] Nov, [facility] [address] [id number] [address] [place] [address] Oct, Back pain M54.9 [facility] [address] [id number] [address] [place] [address] Oct, [facility] [address] [id number] [address] [place] [address] Oct, [facility] [address] [id number] [address] [place] [address] Oct, [facility] [address] [id number] [address] [place] [address] September, Back pain M54.9 [facility] [address] [id number] [address] [place] [address] September, [facility] [address] [id number] [address] [place] [address] September, [facility] [address] [id number] [address] [place] [address] September, [facility] [address] [facility] [id number] [address] [place] [address] Aug, Back pain M54.9 [facility] [address] [facility] [id number] [address] [place] [address] Aug, Anxiety F41.9 [facility] [address] [id number] [address] [place] [address] Aug, [facility] [address] [facility] [id number] [address] [place] [address] Aug, Pressure ulcer of other site , stage 3 L89.893 and COPD (chronic obstructive pulmonary disease) J44.9 [facility] [address] [facility] [id number] [address] [place] [address] Aug, History of smoking Z87.891 [facility] [address] [facility] [id number] [address] [place] [address] Jul, Type 2 diabetes mellitus wit h diabetic peripheral angiopathy without gangrene E11.51 [facility] [address] [facility] [id number] [address] [place] [address] Jul, Back pain M54.9 [facility] [address] [facility] [id number] [address] [place] [address] Jul, Anxiety F41.9 [facility] [address] [id number] [address] [place] [address] 18 Jul, 2018 [facility] [address] [id number] [address] [place] [address] 13 Jul, 2018 Back pain M54.9 [facility] [address] [id number] [address] [place] [address] Jul, Back pain M54.9 [facility] [address] [id number] [address] [place] [address] Jul, Lumbar radiculopathy, chroni c M54.16 ; Hypertension I10 and Type 2 diabetes mellitus with diabetic peripheral angiopathy without gangrene E11.51 [facility] [address] [id number] [address] [place] [address] Jul, Back pain M54.9 [facility] [address] [id number] [address] [place] [address] Jul, Back pain M54.9 and Anxiety F41.9 [facility] [address] [id number] [address] [place] [address] Jul, [facility] [address] [id number] [address] [place] [address] May, Back pain M54.9 and Anxiety F41.9 [facility] [address] [facility] [id number] [address] [place] [address] May, [facility] [address] [id number] [address] [place] [address] Apr, Radiculopathy of lumbar rhiannon on M54.16 ; Back pain M54.9 and Anxiety F41.9 [facility] [address] [id number] [address] [place] [address] Apr, Diabetes E11.9 ; Muscle spas m M62.838 and Lumbar radiculopathy, chronic M54.16 [facility] [address] [id number] [address] [place] [address] Apr, [facility] [address] [id number] [address] [place] [id number] Apr, [facility] [address] [facility] [id number] [address] [place] [address] Mar, Back pain M54.9 and Anxiety F41.9 [facility] [address] [id number] [address] [place] [address] Mar, [facility] [address] [id number] [address] [place] [address] Mar, [facility] [address] [facility] [id number] [address] [place] [address] Mar, [facility] [address] [facility] [id number] [address] [place] [address] Mar, Encounter for immunization Z 23 [facility] [address] [facility] [id number] [address] [place] [address] Feb, Back pain M54.9 and Anxiety F41.9 [facility] [address] [facility] [id number] [address] [place] [address] 04 Feb, 2018 Back pain M54.9 and Anxiety F41.9 [facility] [address] [facility] [id number] [address] [place] [address] Jan, Back pain M54.9 and Anxiety F41.9 [facility] [address] [facility] [id number] [address] [place] [address] Jan, [facility] [address] [id number] [address] [place] [address] Dec, [facility] [address] [facility] [id number] [address] [place] [address] Dec, Back pain M54.9 and Anxiety F41.9 [facility] [address] [facility] [id number] [address] [place] [address] Dec, Diabetes E11.9 ; Type 2 diab etes mellitus with diabetic peripheral angiopathy without gangrene E11.51 ; Lumbar radiculopathy, chronic M54.16 ; COPD (chronic obstructive pulmonary disease) J44.9 and Anxiety F41.9 [facility] [address] [id number] [address] [place] [address] Dec, Back pain M54.9 and Anxiety F41.9 [facility] [address] [id number] [address] [place] [address] Nov, Back pain M54.9 and Anxiety F41.9 [place] [address] [id number] [address] [place] [address] Oct, [place] [address] [id number] [address] [place] [address] Oct, Back pain M54.9 and Anxiety F41.9 [place] [address] [id number] [address] [place] [address] September, Anxiety F41.9 and Back pain M54.9 [place] [address] [id number] [address] [place] [address] September, Diabetes E11.9 ; Hypertensio n I10 ; COPD (chronic obstructive pulmonary disease) J44.9 and Lumbar radiculopathy, chronic M54.16 [place] [address] [id number] [address] [place] [address] September, Anxiety F41.9 [facility] [address] [id number] [address] [place] [address] Aug, [facility] [address] [id number] [address] [place] [address] Aug, [facility] [address] [id number] [address] [place] [address] Aug, Anxiety F41.9 and Back pain M54.9 [facility] [address] [id number] [address] [place] [address] Aug, Medicare annual wellness vis it, initial [...] and custodial current use of insulin Z79.4 [facility] [address] [id number] [address] [place] [address] Jul, Back pain M54.9 [facility] [address] [id number] [address] [place] [address] Jul, [place] [address] [id number] [address] [place] [address] Jul, Anxiety F41.9 and Back pain M54.9 [facility] [address] [id number] [address] [place] [address] Jul, Diabetes E11.9 [facility] [address] [id number] [address] [place] [address] May, [facility] [address] [id number] [address] [place] [address] May, Diabetes E11.9 ; Anxiety F41 .9 ; Back pain M54.9 and COPD (chronic obstructive pulmonary disease) J44.9 [facility] [address] [id number] [address] [place] [address] May, Back pain M54.9 [facility] [address] [id number] [address] [place] [address] May, [facility] [address] [id number] [address] [place] [address] Apr, Back pain M54.9 [facility] [address] [id number] [address] [place] [address] Mar, Back pain M54.9 [facility] [address] [id number] [address] [place] [address] Mar, [facility] [address] [id number] [address] [place] [id number] 16 Mar, 2017 [facility] [address] [id number] [address] [place] [address] 14 Mar, 2017 Radiculopathy of lumbar rhiannon on M54.16 [facility] [address] [id number] [address] [place] [address] 13 Mar, 2017 [facility] [address] [id number] [address] [place] [address] 07 Mar, 2017 Encounter for immunization Z 23 and Lumbar radiculopathy, chronic M54.16 [facility] [address] [id number] [address] [place] [address] Mar, Back pain M54.9 and Anxiety F41.9 [facility] [address] [id number] [address] [place] [address] 10 Feb, 2017 Acute bilateral low back boy n with left-sided sciatica M54.42 and Acute bilateral low back pain with right-sided sciatica M54.41 [facility] [address] [id number] [address] [place] [address] 06 Feb, 2017 [facility] [address] [id number] [address] [place] [address] Feb, Back pain M54.9 [facility] [address] [id number] [address] [place] [address] 05 Jan, 2017 Back pain M54.9 and Anxiety F41.9 [facility] [address] [id number] [address] [place] [address] 05 Jan, 2017 Diabetes E11.9 [facility] [address] [id number] [address] [place] [address] Dec, Diabetes E11.9 ; Back pain M 54.9 ; Anxiety F41.9 and Insulin long- term use Z79.4 [facility] [address] [id number] [address] [place] [address] Dec, Anxiety F41.9 [facility] [address] [id number] [address] [place] [address] Dec, Back pain M54.9 [facility] [address] [id number] [address] [place] [address] Nov, Back pain M54.9 [facility] [address] [id number] [address] [place] [address] Oct, Back pain M54.9 and Anxiety F41.9 [facility] [address] [id number] [address] [place] [address] September, Back pain M54.9 [facility] [address] [id number] [address] [place] [id number] September, Back pain M54.9 and Anxiety F41.9 [facility] [address] [id number] [address] [place] [id number] Aug, Diabetes E11.9 ; Anxiety F41 .9 ; Back pain M54.9 and PAD (peripheral artery disease) I73.9 [facility] [address] [id number] [address] [place] [id number] Aug, Anxiety F41.9 [facility] [address] [id number] [address] [place] [id number] Aug, Back pain M54.9 [facility] [address] [id number] [address] [place] [id number] Jul, Back pain M54.9 [facility] [address] [id number] [address] [place] [id number] Jul, Back pain M54.9 [facility] [address] [id number] [address] [place] [id number] Jul, Back pain M54.9 [facility] [address] [id number] [address] [place] [id number] 16 Jul, 2016 Dorsalgia M54.9 [facility] [address] [id number] [address] [place] [id number] 14 Jul, 2016 [facility] [address] [id number] [address] [place] [id number] May, Back pain M54.9 [facility] [address] [id number] [address] [place] [id number] May, Diabetes E11.9 ; Anxiety F41 .9 ; Port catheter in place Z95.828 ; Encounter for immunization Z23 and Insulin long-term use Z79.4 [facility] [address] [id number] [address] [place] [id number] Apr, Back pain M54.9 [facility] [address] [id number] [address] [place] [id number] Apr, Back pain M54.9 [facility] [address] [id number] [address] [place] [id number] Apr, [facility] [address] [id number] [address] [place] [id number] Apr, Back pain M54.9 [facility] [address] [id number] [address] [place] [id number] Mar, COPD (chronic obstructive pu lmonary disease) J44.9 [facility] [address] [id number] [address] [place] [id number] Feb, [facility] [address] [id number] [address] [place] [id number] 30 Jan, 2016 [facility] [address] [id number] [address] [place] [id number] 20 Jan, 2016 [facility] [address] [id number] [address] [place] [address] [id number] 07 Jan, 2016 [facility] [address] [id number] [address] [place] [address] Jan, [facility] [address] [id number] [address] [place] [address] Dec, Diabetes E11.9 ; Hypoxia R09 .02 and Back pain M54.9 [facility] [address] [id number] [address] [place] [address] Dec, [facility] [address] [id number] [address] [place] [address] Nov, [facility] [address] [id number] [address] [place] [address] Oct, Anxiety F41.9 [facility] [address] [id number] [address] [place] [address] Oct, Back pain M54.9 [facility] [address] [id number] [address] [place] [address] September, Back pain M54.9 [facility] [address] [id number] [address] [place] [address] September, Diabetes E11.9 [facility] [address] [id number] [address] [place] [address] September, [facility] [address] [id number] [address] [place] [address] September, Diabetes E11.9 ; Insulin sarai g-term use Z79.4 and Back pain M54.9 [facility] [address] [id number] [address] [place] [address] Aug, Back pain M54.9 [facility] [address] [facility] [id number] [address] [place] [address] Aug, Back pain M54.9 ; Anxiety F4 1.9 and Arthropathy, unspecified M12.9 [facility] [address] [id number] [address] [place] [address] Jul, Back pain M54.9 [facility] [address] [facility] [id number] [address] [place] [address] Jul, Anxiety F41.9 [facility] [address] [facility] [id number] [address] [place] [address] Jul, Back pain M54.9 [facility] [address] [place] [id number] [address] [place] [address] Jul, [facility] [address] [id number] [address] [place] [address] Jul, [facility] [address] [address] May, Back pain M54.9 ; Diabetes E 11.9 ; Insulin long-term use Z79.4 ; COPD (chronic obstructive pulmonary disease) J44.9 and Hypertension I10 [facility] [address] [place] [id number] [address] [place] [address] May, Chronic pain G89.29 [facility] [address] [id number] [address] [place] [address] Apr, [facility] [address] [id number] [place] [address] Apr, [facility] [address] [address] Mar, [facility] [address] [address] Mar, Encounter for immunization Z 23 and Diabetes E11.9 [facility] [address] [place] [id number] [place] [address] Feb, [facility] [address] [id number] [address] [place] [address] Feb, [facility] [address] [address] Jan, [facility] [address] [id number] [address] [place] [address] Jan, [facility] [address] [id number] [address] [place] [address], [place] [address] Dec, [facility] [address] [id number] [address] [place] [address] Dec, [facility] [address] [id number] [address] [place] [address] Dec, Unspecified arthropathy, sit e unspecified 716.90 and Diabetes mellitus type 2, uncontrolled 250.02 [facility] [address] [id number] [address] [place] [address], [place] [address] Dec, [facility] [address] [id number] [address] [place] [address] Nov, [facility] [address] [id number] [address] [place] [address] Oct, [facility] [address] [id number] [address] [place] [address] September, [facility] [address] [id number] [address] [place] [address], [place] [address] September, [facility] [address] [id number] [address] [place] [address] September, [facility] [address] [id number] [address] [place] [address] September, [facility] [address] [id number] [address] [place] [address] Aug, [facility] [address] [id number] [address] [place] [address] Aug, [facility] [address] [id number] [address] [place] [address] Jul, [facility] [address] [id number] [address] [place] [address] Jul, [facility] [address] [id number] [facility] [place] [address] 16 Jul, 2014 [facility] [address] [id number] [address] [place] [address], [place] [address] 16 Jul, 2014 [facility] [address] [id number] [address] [place] [address], [place] [address] 16 Jul, 2014 [facility] [address] [id number] [address] [place] [address], [place] [address] 16 Jul, 2014 [facility] [address] [id number] [address] [place] [address], [place] [address] 16 Jul, 2014 [facility] [address] [id number] [address] [place] [address], [place] [address] 16 Jul, 2014 [facility] [address] [id number] [address] [place] [address], [place] [address] 16 Jul, 2014 [facility] [address] [id number] [address] [place] [address], [place] [address] 13 Jul, 2014 [facility] [address] [id number] [address] [place] [address], [place] [address] 13 Jul, 2014 [facility] [address] [id number] [address] [place] [address], [place] [address] 09 Jul, 2014 [facility] [address] [id number] [address] [place] [address], [place] [address] Jul, [facility] [address] [id number] [address] [place] [address], [place] [address] 17 Jul, 2014 [facility] [address] [id number] [address] [place] [address], [place] [address] 17 Jul, 2014 [facility] [address] [id number] [address] [place] [address], [place] [address] 16 Jul, 2014 [facility] [address] [id number] [address] [place] [address], [place] [address] 16 Jul, 2014 [facility] [address] [id number] [address] [place] [address], [place] [address] 16 Jul, 2014 [facility] [address] [id number] [address] [place] [address], [place] [address] 16 Jul, 2014 [facility] [address] [id number] [address] [place] [address], [place] [address] 16 Jul, 2014 [facility] [address] [id number] [address] [place] [address], [place] [address] 16 Jul, 2014 [facility] [address] [id number] [address] [place] [address], [place] [address] Jul, 2014 [facility] [address] [id number] [address] [place] [address], [place] [address] Jul, 2014 [facility] [address] [id number] [address] [place] [address], [place] [address] 16 Jul, 2014 [facility] [address] [id number] [address] [place] [address], [place] [address] Jul, 2014 [facility] [address] [id number] [address] [place] [address], [place] [address] Jul, 2014 [facility] [address] [id number] [address] [place] [address], [place] [address] Jul, 2014 [facility] [address] [id number] [address] [place] [address], [place] [address] Jul, [facility] [address] [id number] [address] [place] [address] Jul, 2014 [facility] [address] [id number] [address] [place] [address], [place] [address] May, [facility] [address] [id number] [address] [place] [address], [place] [address] May, [facility] [address] [id number] [address] [place] [address] May, [facility] [address] [id number] [address] [place] [address] May, [facility] [address] [id number] [address] [place] [address], [place] [address] May, [facility] [address] [id number] [address] [place] [address], [place] [address] May, [facility] [address] [id number] [address] [place] [address], [place] [address] May, [facility] [address] [id number] [address] [place] [address], [place] [address] May, [facility] [address] [id number] [address] [place] [address], [place] [address] May, [facility] [address] [id number] [address] [place] [address], [place] [address] May, [facility] [address] [id number] [address] [place] [address], [place] [address] Apr, [facility] [address] [id number] [address] [place] [address], [place] [address] Apr, [facility] [address] [id number] [address] [place] [address], [place] [address] Apr, [facility] [address] [id number] [address] [place] [address], [place] [address] Apr, [facility] [address] [id number] [address] [place] [address], [place] [address] Apr, [facility] [address] [id number] [address] [place] [address], [place] [address] Apr, [facility] [address] [id number] [address] [place] [address], [place] [address] Mar, [facility] [address] [id number] [address] [place] [address], [place] [address] Mar, [facility] [address] [id number] [address] [place] [address], [place] [address] Mar, [facility] [address] [id number] [address] [place] [address], [place] [address] Mar, [facility] [address] [id number] [address] [place] [address], [place] [address] Mar, [facility] [address] [id number] [address] [place] [address], [place] [address] Mar, [facility] [address] [id number] [address] [place] [address], [place] [address] Mar, [facility] [address] [id number] [address] [place] [address], [place] [address] Mar, [facility] [address] [id number] [address] [place] [address], [place] [address] Mar, [facility] [address] [id number] [address] [place] [address], [place] [address] Mar, [facility] [address] [id number] [address] [place] [address], [place] [address] Mar, [facility] [address] [id number] [address] [place] [address], [place] [address] Feb, [facility] [address] [id number] [address] [place] [address], [place] [address] Feb, [facility] [address] [id number] [address] [place] [address], [place] [address] Feb, [facility] [address] [id number] [address] [place] [address], [place] [address] Feb, [facility] [address] [id number] [address] [place] [address], [place] [address] Feb, [facility] [address] [id number] [address] [place] [address], [place] [address] Feb, [facility] [address] [id number] [address] [place] [address], [place] [address] Feb, [facility] [address] [id number] [address] [place] [address], [place] [address] Feb, [facility] [address] [id number] [address] [place] [address], [place] [address] Feb, [facility] [address] [id number] [address] [place] [address], [place] [address] Feb, [facility] [address] [id number] [address] [place] [address], [place] [address] Jan, [facility] [address] [id number] [address] [place] [address], [place] [address] Jan, [facility] [address] [id number] [address] [place] [address], [place] [address] Jan, [facility] [address] [id number] [address] [place] [address], [place] [address] Jan, [facility] [address] [id number] [address] [place] [address], [place] [address] Jan, [facility] [address] [id number] [address] [place] [address], [place] [address] Jan, [facility] [address] [id number] [address] [place] [address], [place] [address] Jan, [facility] [address] [id number] [address] [place] [address], [place] [address] Dec, [facility] [address] [id number] [address] [place] [address], [place] [address] Dec, [facility] [address] [id number] [address] [place] [address], [place] [address] Dec, [facility] [address] [id number] [address] [place] [address], [place] [address] Dec, [facility] [address] [id number] [address] [place] [address], [place] [address] Dec, [facility] [address] [id number] [address] [place] [address], [place] [address] Dec, [facility] [address] [id number] [address] [place] [address], [place] [address] Dec, [facility] [address] [id number] [address] [place] [address], [place] [address] Dec, [facility] [address] [id number] [address] [place] [address], [place] [address] Oct, [facility] [address] [id number] [address] [place] [address], [place] [address] Oct, [facility] [address] [id number] [address] [place] [address], [place] [address] September, [facility] [address] [id number] [address] [place] [address], [place] [address] September, [facility] [address] [id number] [address] [place] [address], [place] [address] September, [facility] [address] [id number] [address] [place] [address], [place] [address] September, [facility] [address] [id number] [address] [place] [address], [place] [address] September, [facility] [address] [id number] [address] [place] [address], [place] [address] September, [facility] [address] [id number] [address] [place] [address], [place] [address] September, [facility] [address] [id number] [address] [place] [address], [place] [address] Aug, [facility] [address] [id number] [address] [place] [address], [place] [address] Aug, [facility] [address] [id number] [address] [place] [address], [place] [address] Jul, [facility] [address] [id number] [address] [place] [address], [place] [address] Jul, [facility] [address] [id number] [address] [place] [address], [place] [address] Jul, [facility] [address] [id number] [address] [place] [address], [place] [address] 17 Jul, 2013 [facility] [address] [id number] [address] [place] [address], [place] [address] 14 Jul, 2013 [facility] [address] [id number] [address] [place] [address], [place] [address] 14 Jul, 2013 [facility] [address] [id number] [address] [place] [address], [place] [address] Jul, [facility] [address] [id number] [address] [place] [address], [place] [address] Jul, [facility] [address] [id number] [address] [place] [address], [place] [address] 15 May, 2013 [facility] [address] [id number] [address] [place] [address], [place] [address] May, [facility] [address] [id number] [address] [place] [address], [place] [address] May, [facility] [address] [id number] [address] [place] [address], [place] [address] May, [facility] [address] [id number] [address] [place] [address], [place] [address] Apr, [facility] [address] [id number] [address] [place] [address], [place] [address] Mar, [facility] [address] [id number] [address] [place] [address], [place] [address] Mar, [facility] [address] [id number] [address] [place] [address], [place] [address] Mar, [facility] [address] [id number] [address] [place] [address], [place] [address] Mar, [facility] [address] [id number] [address] [place] [address], [place] [address] 18 Mar, 2013 [facility] [address] [id number] [address] [place] [address], [place] [address] 18 Mar, 2013 [facility] [address] [id number] [address] [place] [address], [place] [address] 18 Mar, 2013 [facility] [address] [id number] [address] [place] [address], [place] [address] 18 Mar, 2013 [facility] [address] [id number] [address] [place] [address], [place] [address] Mar, [facility] [address] [id number] [address] [place] [address], [place] [address] Mar, [facility] [address] [id number] [address] [place] [address], [place] [address] Mar, [facility] [address] [id number] [address] [place] [address], [place] [address] Mar, [facility] [address] [id number] [address] [place] [address], [place] [address] 15 Feb, 2013 [facility] [address] [id number] [address] [place] [address], [place] [address] 15 Feb, 2013 [facility] [address] [id number] [address] [place] [address], [place] [address] Feb, [facility] [address] [id number] [address] [place] [address], [place] [address] Feb, [facility] [address] [id number] [address] [place] [address], [place] [address] Feb, [facility] [address] [id number] [address] [place] [address], [place] [address] Jan, [facility] [address] [id number] [address] [place] [address], [place] [address] Dec, [facility] [address] [id number] [address] [place] [address], [place] [address] Dec, [facility] [address] [id number] [address] [place] [address], [place] [address] Dec, [facility] [address] [id number] [address] [place] [address], [place] [address] Nov, [facility] [address] [id number] [address] [place] [address], [place] [address] Nov, [facility] [address] [id number] [address] [place] [address], [place] [address] Nov, [facility] [address] [id number] [address] [place] [address], [place] [address] Oct, [facility] [address] [id number] [address] [place] [address], [place] [address] Oct, [facility] [address] [id number] [address] [place] [address], [place] [address] Oct, [facility] [address] [id number] [address] [place] [address], [place] [address] September, [facility] [address] [id number] [address] [place] [address], [place] [address] September, [facility] [address] [id number] [address] [place] [address], [place] [address] September, [facility] [address] [id number] [address] [place] [address], [place] [address] September, [facility] [address] [id number] [address] [place] [address], [place] [address] September, [facility] [address] [id number] [address] [place] [address], [place] [address] Aug, [facility] [address] [id number] [address] [place] [address], [place] [address] Aug, [facility] [address] [id number] [address] [place] [address], [place] [address] Aug, [facility] [address] [id number] [address] [place] [address], [place] [address] Jul, [facility] [address] [id number] [address] [place] [address], [place] [address] Jul, [facility] [address] [id number] [address] [place] [address], [place] [address] Jul, [facility] [address] [id number] [address] [place] [address], [place] [address] Jul, [facility] [address] [id number] [address] [place] [address], [place] [address] Jul, [facility] [address] [id number] [address] [place] [address], [place] [address] Jul, [facility] [address] [id number] [address] [place] [address], [place] [address] Jul, [facility] [address] [id number] [address] [place] [address], [place] [address] May, [facility] [address] [id number] [address] [place] [address], [place] [address] May, [facility] [address] [id number] [address] [place] [address], [place] [address] May, [facility] [address] [id number] [address] [place] [address], [place] [address] Apr, [facility] [address] [id number] [address] [place] [address], [place] [address] Apr, [facility] [address] [id number] [address] [place] [address], [place] [address] Apr, [facility] [address] [id number] [address] [place] [address], [place] [address] Apr, [facility] [address] [id number] [address] [place] [address], [place] [address] Apr, [facility] [address] [id number] [address] [place] [address], [place] [address] Mar, [facility] [address] [id number] [address] [place] [address], [place] [address] Mar, [facility] [address] [id number] [address] [place] [address], [place] [address] 15 Mar, 2012 [facility] [address] [id number] [address] [place] [address], [place] [address] Mar, [facility] [address] [id number] [address] [place] [address], [place] [address] Feb, [facility] [address] [id number] [address] [place] [address], [place] [address] Feb, [facility] [address] [id number] [address] [place] [address], [place] [address] Feb, [facility] [address] [id number] [address] [place] [address], [place] [address] Feb, [facility] [address] [id number] [address] [place] [address], [place] [address] Feb, [facility] [address] [id number] [address] [place] [address], [place] [address] Jan, [facility] [address] [id number] [address] [place] [address], [place] [address] Dec, [facility] [address] [id number] [address] [place] [address], [place] [address] Dec, [facility] [address] [id number] [address] [place] [address], [place] [address] Dec, [facility] [address] [id number] [address] [place] [address], [place] [address] Nov, [facility] [address] [id number] [address] [place] [address], [place] [address] Nov, [facility] [address] [id number] [address] [place] [address], [place] [address] Nov, [facility] [address] [id number] [address] [place] [address], [place] [address] Oct, [facility] [address] [id number] [address] [place] [address], [place] [address] Oct, [facility] [address] [id number] [address] [place] [address], [place] [address] Oct, [facility] [address] [id number] [address] [place] [address], [place] [address] Oct, [facility] [address] [id number] [address] [place] [address], [place] [address] September, [facility] [address] [id number] [address] [place] [address], [place] [address] September, [facility] [address] [id number] [address] [place] [address], [place] [address] Aug, [facility] [address] [id number] [address] [place] [address], [place] [address] Aug, [facility] [address] [id number] [address] [place] [address], [place] [address] Aug, [facility] [address] [id number] [address] [place] [address], [place] [address] Aug, [facility] [address] [id number] [address] [place] [address], [place] [address] Aug, [facility] [address] [id number] [address] [place] [address], [place] [address] Aug, [facility] [address] [id number] [address] [place] [address], [place] [address] Aug, [facility] [address] [id number] [address] [place] [address], [place] [address] Jul, [facility] [address] [id number] [address] [place] [address], [place] [address] Jul, [facility] [address] [id number] [address] [place] [address], [place] [address] Jul, [facility] [address] [id number] [address] [place] [address], [place] [address] May, [facility] [address] [id number] [address] [place] [address] May, [facility] [address] [id number] [address] [place] [address] May, [facility] [address] [id number] [address] [place] [address] Apr, [facility] [address] [id number] [address] [place] [address] Apr, [facility] [address] [id number] [address] [place] [address] Mar, [facility] [address] [id number] [address] [place] [address] Mar, [facility] [address] [id number] [address] [place] [address] Mar, [facility] [address] [id number] [address] [place] [address] Mar, [facility] [address] [id number] [address] [place] [address] Mar, [facility] [address] [id number] [address] [place] [id number] Mar, [facility] [address] [id number] [address] [place] [address] Feb, [facility] [address] [id number] [address] [place] [address] Feb, [facility] [address] [id number] [address] [place] [address] Feb, IMMUNIZATIONS No Known Immunizations SOCIAL HISTORY [...] infections x 3 2016 Hospitalization History [facility] [place] - right big t oe removed 2019
--- OUTSIDE RECORDS SUMMARY | 2020-01-03 08:14 | XMS REPORT ---
Author Author Tra SILVERIO Organization [facility] Address [address] [place] [address] Care Team Providers Care Road Grader Name Role Phone FERNY SILVERIO Unavailable PROBLEMS Type Condition ICD9-CM Code USM88-XZ Code Onset Dates Condition S tatus SNOMED Code Problem Hypertension I10 Active 6561954 3 Problem Hypoxia R09.02 Active 617171292 Problem COPD (chronic obstructive pulmonary disease) J44.9 Active 19289067 Problem Lumbar radiculopathy, chronic M54.16 Active 840286164 Problem [facility] current use of insulin Z79.4 Active 783785959 Problem Recurrent major depressive disorder, in full remission F33.42 Active 778204202 Problem Hyperlipidemia, unspecified E78.5 Ac tive 91954028 Problem PAD (peripheral artery disease) I73.9 Active 918625853 Problem Type 2 diabetes mellitus with other specified complication E11.69 Active 593124613428 Problem Anxiety F41.9 Active 83138460 Problem Type 2 diabetes mellitus wit h diabetic peripheral angiopathy without gangrene E11.51 Active 782230553 Problem ED (erectile dysfunction) of organic origin N52.9 Active 557237129 Problem Arthritis M19.90 Active 5089413 Problem Morbid (severe) obesity due to excess calories E66 .01 Active 504609738 ALLERGIES No Information ENCOUNTERS Encounter Location Date Diagnosis [facility] [address] [facility] [id number] [address] [place] [phone] September, Back pain M54.9 and Lumbar r adiculopathy, chronic M54.[address] 340[address] [id number] [place] [address] September, Anxiety F41.9 [facility] [address] [id number] [place] [address] Aug, [facility] [address] [facility] [id number] [address] [place] [phone] 24 Aug, 2019 Back pain M54.9 and Lumbar r adiculopathy, chronic M54.16 [facility] [address] [id number] [address] [place] [phone] 10 Aug, 2019 Anxiety F41.9 ; Back pain M5 4.9 and Lumbar radiculopathy, chronic M54.16 [facility] [address] [id number] [address] [place] [phone] 09 Aug, 2019 Lumbar radiculopathy, chroni c M54.16 ; Anxiety F41.9 ; Type 2 diabetes mellitus with other specified complication E11.[address] [facility] [address] [id number] [address] [place] [phone] 30 Jul, 2019 [facility] [address] [id number] [address] [place] [phone] 27 Jul, 2019 Lumbar radiculopathy, chroni c M54.16 ; Back pain M54.[address] [facility] [address] [id number] [address] [place] [phone] 23 Jul, 2019 [facility] [address] [id number] [address] [place] [phone] 13 Jul, [address] [facility] [address] [id number] [address] [place] [phone] Jul, Anxiety F41.9 [facility] [address] [id number] [address] [place] [phone] Jul, Back pain M54.9 [facility] [address] [id number] [address] [place] [phone] Jul, Back pain M54.9 [facility] [address] [id number] [address] [place] [id number] 28 Jul, 2019 Lumbar radiculopathy, chroni c M54.16 [facility] [address] [id number] [address] [place] [id number] 28 Jul, [address] [facility] [address] [id number] [address] [place] [phone] 07 Jul, 2019 Encounter for Medicare sam [...] diabetes mellitus with other specified complication E11.69 [place] [address] [id number] [address] [place] [phone] 03 Jul, 2019 Back pain M54.9 [place] [address] [id number] [address] [place] [phone] Jul, Anxiety F41.9 [place] [address] [id number] [address] [place] [phone] May, [place] [address] [id number] [address] [place] [phone] May, Lumbar radiculopathy, chroni c M54.16 [place] [address] [id number] [address] [place] [phone] May, Back pain M54.9 [place] [address] [id number] [address] [place] [phone] May, [place] [address] [id number] [address] [place] [phone] May, Back pain M54.9 and Anxiety F41.9 [place] [address] [id number] [address] [place] [phone] May, [place] [address] [id number] [address] [place] [phone] May, Type 2 diabetes mellitus wit h diabetic peripheral angiopathy without gangrene E11.51 ; Arthritis M19.90 ; ED (erectile dysfunction) of organic origin N52.9 ; Morbid (severe) obesity due to excess calories E66.01 and Lumbar radiculopathy, chronic M54.16 [facility] [address] [id number] [address] [place] [phone] May, Diabetes E11.9 [facility] [address] [id number] [address] [place] [phone] Apr, [facility] [address] [id number] [address] [place] [phone] Apr, Back pain M54.9 [facility] [address] [facility] [id number] [address] [place] [phone] Apr, [facility] [address] [facility] [id number] [address] [place] [phone] Apr, Anxiety F41.9 [facility] [address] [facility] [id number] [address] [place] [phone] Apr, Back pain M54.9 and Lumbar r adiculopathy, chronic M54.16 [facility] [address] [facility] [id number] [address] [place] [phone] Apr, Back pain M54.9 ; Anxiety F4 1.9 and Lumbar radiculopathy, chronic M54.16 [facility] [address] [facility] [id number] [address] [place] [phone] Mar, [facility] [address] [id number] [address] [place] [phone] Mar, [facility] [address] [facility] [id number] [address] [place] [phone] Mar, Back pain M54.9 [facility] [address] [facility] [id number] [address] [place] [phone] Mar, [facility] [address] [place] [id number] [address] [place] [phone] Feb, Type 2 diabetes mellitus wit h diabetic peripheral angiopathy without gangrene E11.51 ; Lumbar radiculopathy, chronic M54.16 ; ED (erectile dysfunction) of organic origin N52.9 ; Encounter for immunization Z23 ; COPD (chronic obstructive pulmonary disease) J44.[address] An[address] [facility] [address] [id number] [address] [place] [phone] Feb, Back pain M54.9 [facility] [address] [id number] [address] [place] [phone] Feb, [facility] [address] [id number] [address] [place] [phone] Feb, [facility] [address] [id number] [address] [place] [phone] Feb, [facility] [address] [id number] [address] [place] [phone] Feb, Back pain M54.9 [facility] [address] [id number] [address] [place] [phone] Feb, [facility] [address] [id number] [address] [place] [phone] Jan, Anxiety F41.9 [facility] [address] [id number] [address] [place] [phone] Jan, Anxiety F41.9 [facility] [address] [id number] [address] [place] [phone] Jan, [facility] [address] [id number] [address] [place] [phone] Jan, [facility] [address] [id number] [address] [place] [phone] Jan, Back pain M54.9 [facility] [address] [id number] [address] [place] [phone] Jan, [facility] [address] [id number] [address] [place] [phone] Dec, Acute non-recurrent frontal sinusitis J01.10 [facility] [address] [id number] [address] [place] [phone] Dec, Acute non-recurrent frontal sinusitis J01.10 [facility] [address] [id number] [address] [place] [phone] Dec, Type 2 diabetes mellitus wit h diabetic peripheral angiopathy without gangrene E11.51 ; Lumbar radiculopathy, chronic M54.16 ; Recurrent major depressive disorder, in full remission F33.[address] [facility] [address] [id number] [address] [place] [phone] Dec, [facility] [address] [id number] [address] [place] [phone] Nov, Anxiety F41.9 [facility] [address] [id number] [address] [place] [phone] Nov, [facility] [address] [id number] [address] [place] [phone] Nov, Back pain M54.9 [facility] [address] [id number] [address] [place] [phone] Nov, [facility] [address] [id number] [address] [place] [phone] Nov, Back pain M54.9 [facility] [address] [id number] [address] [place] [phone] Nov, Anxiety F41.9 [facility] [address] [id number] [address] [place] [phone] Nov, [facility] [address] [id number] [address] [place] [phone] Oct, Back pain M54.9 [facility] [address] [id number] [address] [place] [phone] Oct, [facility] [address] [id number] [address] [place] [phone] Oct, [facility] [address] [id number] [address] [place] [phone] Oct, [facility] [address] [id number] [address] [place] [phone] September, Back pain M54.9 [facility] [address] [id number] [address] [place] [phone] September, [facility] [address] [id number] [address] [place] [phone] September, [facility] [address] [id number] [address] [place] [phone] September, [facility] [address] [id number] [address] [place] [phone] Aug, Back pain M54.9 [facility] [address] [id number] [address] [place] [phone] Aug, Anxiety F41.9 [facility] [address] [id number] [address] [place] [phone] Aug, [facility] [address] [id number] [address] [place] [id number] Aug, Pressure ulcer of other site , stage 3 L89.893 and COPD (chronic obstructive pulmonary disease) J44.9 [facility] [address] [id number] [address] [place] [phone] Aug, History of smoking Z87.891 [facility] [address] [id number] [address] [place] [id number] Jul, Type 2 diabetes mellitus wit h diabetic peripheral angiopathy without gangrene E11.51 [facility] [address] [id number] [address] [place] [id number] Jul, Back pain M54.9 [facility] [address] [id number] [address] [place] [phone] 19 Jul, [address] [facility] [address] [id number] [address] [place] [phone] 18 Jul, 2018 [facility] [address] [id number] [address] [place] [phone] 13 Jul, [address] [facility] [address] [id number] [address] [place] [phone] 12 Jul, [address] [facility] [address] [id number] [address] [place] [phone] 11 Jul, 2018 Lumbar radiculopathy, chroni c M54.16 ; Hypertension I10 and Type 2 diabetes mellitus with diabetic peripheral angiopathy without gangrene E11.51 [facility] [address] [id number] [address] [place] [phone] Jul, Back pain M54.9 [facility] [address] [id number] [address] [place] [phone] Jul, Back pain M54.[address] [facility] [address] [id number] [address] [place] [phone] Jul, [facility] [address] [id number] [address] [place] [phone] May, Back pain M54.[address] [facility] [address] [id number] [address] [place] [phone] May, [facility] [address] [id number] [address] [place] [phone] Apr, Radiculopathy of lumbar rhiannon on M54.16 ; Back pain M54.[address] [facility] [address] [id number] [address] [place] [phone] Apr, Diabetes E11.9 ; Muscle spas m M62.838 and Lumbar radiculopathy, chronic M54.16 [facility] [address] [id number] [address] [place] [phone] Apr, [facility] [address] [id number] [address] [place] [phone] Apr, [facility] [address] [id number] [address] [place] [phone] Mar, Back pain M54.[address] [facility] [address] [id number] [address] [place] [phone] Mar, [facility] [address] [id number] [address] [place] [phone] Mar, [facility] [address] [id number] [address] [place] [phone] Mar, [facility] [address] [id number] [address] [place] [phone] Mar, Encounter for immunization Z 23 [facility] [address] [id number] [address] [place] [phone] Feb, Back pain M54.[address] [facility] [address] [id number] [address] [place] [phone] Feb, Back pain M54.[address] [facility] [address] [id number] [address] [place] [phone] Jan, Back pain M54.[address] [facility] [address] [id number] [address] [place] [phone] Jan, [facility] [address] [id number] [address] [place] [phone] Dec, [facility] [address] [id number] [address] [place] [phone] Dec, Back pain M54.[address] [facility] [address] [id number] [address] [place] [phone] 13 Dec, 2017 Diabetes E11.9 ; Type 2 diab etes mellitus with diabetic peripheral angiopathy without gangrene E11.51 ; Lumbar radiculopathy, chronic M54.16 ; COPD (chronic obstructive pulmonary disease) J44.[address] [facility] [address] [id number] [address] [place] [phone] Dec, Back pain M54.9 and Anxiety F41.9 [place] [address] [id number] [address] [place] [phone] Nov, Back pain M54.9 and Anxiety F41.9 [place] [address] [id number] [address] [place] [id number] Oct, [place] [address] [id number] [address] [place] [phone] Oct, Back pain M54.9 and Anxiety F41.9 [place] [address] [id number] [address] [place] [id number] September, Anxiety F41.9 and Back pain M54.9 [place] [address] [id number] [address] [place] [phone] September, Diabetes E11.9 ; Hypertensio n I10 ; COPD (chronic obstructive pulmonary disease) J44.9 and Lumbar radiculopathy, chronic M54.16 [place] [address] [id number] [address] [place] [phone] September, Anxiety F41.9 [facility] [address] [id number] [address] [place] [phone] Aug, [facility] [address] [id number] [address] [place] [phone] Aug, [facility] [address] [id number] [address] [place] [phone] Aug, Anxiety F41.9 and Back pain M54.9 [facility] [address] [id number] [address] [place] [phone] Aug, Medicare annual wellness vis it, initial [...] and [facility]FP current use of insulin Z79.4 [facility] [address] [id number] [address] [place] [phone] Jul, Back pain M54.9 [facility] [address] [id number] [address] [place] [phone] Jul, [facility] [address] [id number] [address] [place] [phone] Jul, Anxiety F41.9 and Back pain M54.9 [facility] [address] [id number] [address] [place] [phone] Jul, Diabetes E11.9 [facility] [address] [id number] [address] [place] [phone] May, [facility] [address] [id number] [address] [place] [phone] May, Diabetes E11.9 ; Anxiety F41 .9 ; Back pain M54.9 and COPD (chronic obstructive pulmonary disease) J44.9 [facility] [address] [id number] [address] [place] [phone] May, Back pain M54.9 [facility] [address] [id number] [address] [place] [phone] May, [facility] [address] [id number] [address] [place] [phone] Apr, Back pain M54.9 [facility] [address] [id number] [address] [place] [phone] 30 Mar, [address] [facility] [address] [id number] [address] [place] [phone] 20 Mar, 2017 [facility] [address] [id number] [address] [place] [phone] 16 Mar, 2017 [facility] [address] [id number] [address] [place] [phone] 14 Mar, 2017 Radiculopathy of lumbar rhiannon on M54.16 [facility] [address] [id number] [address] [place] [phone] 13 Mar, 2017 [facility] [address] [id number] [address] [place] [phone] 07 Mar, 2017 Encounter for immunization Z 23 and Lumbar radiculopathy, chronic M54.16 [facility] [address] [id number] [address] [place] [phone] Mar, Back pain M54.9 and Anxiety F41.9 [facility] [address] [id number] [address] [place] [phone] 10 Feb, 2017 Acute bilateral low back boy n with left-sided sciatica M54.42 and Acute bilateral low back pain with right-sided sciatica M54.41 [facility] [address] [id number] [address] [place] [id number] Feb, [facility] [address] [id number] [address] [place] [phone] Feb, Back pain M54.9 [facility] [address] [id number] [address] [place] [phone] 05 Jan, 2017 Back pain M54.[address] [facility] [address] [id number] [address] [place] [id number] 05 Jan, [address] [facility] [address] [id number] [address] [place] [phone] 14 Dec, 2016 Diabetes E11.9 ; Back pain M 54.9 ; Anxiety F41.9 and Insulin long- term use Z79.4 [facility] [address] [id number] [address] [place] [phone] 09 Dec, [address] [facility] [address] [id number] [address] [place] [phone] Dec, Back pain M54.9 [facility] [address] [id number] [address] [place] [phone] Nov, Back pain M54.9 [facility] [address] [id number] [address] [place] [id number] Oct, Back pain M54.[address] [facility] [address] [facility] [id number] [address] [place] [phone] September, Back pain M54.9 [facility] [address] [id number] [address] [place] [id number] September, Back pain M54.[address] [facility] [address] [facility] [id number] [address] [place] [phone] Aug, Diabetes E11.9 ; Anxiety F41 .9 ; Back pain M54.9 and PAD (peripheral artery disease) I73.9 [facility] [address] [id number] [address] [place] [phone] Aug, Anxiety F41.9 [facility] [address] [id number] [address] [place] [phone] 14 Aug, [address] [facility] [address] [facility] [id number] [address] [place] [id number] 23 Jul, [address] [facility] [address] [facility] [id number] [address] [place] [phone] Jul, Back pain M54.9 [facility] [address] [id number] [address] [place] [id number] 23 Jul, [address] [facility] [address] [id number] [address] [place] [phone] 16 Jul, [address] [facility] [address] [id number] [address] [place] [phone] 14 Jul, 2016 [facility] [facility] [address] [facility] [id number] [address] [place] [id number] May, Back pain M54.9 [facility] [address] [id number] [address] [place] [phone] May, Diabetes E11.9 ; Anxiety F41 .9 ; Port catheter in place Z95.828 ; Encounter for immunization Z23 and Insulin long-term use Z79.4 [facility] [address] [id number] [address] [place] [phone] Apr, Back pain M54.9 [facility] [address] [id number] [address] [place] [phone] Apr, Back pain M54.9 [facility] [address] [facility] [id number] [address] [place] [id number] Apr, [facility] [address] [id number] [address] [place] [phone] Apr, Back pain M54.9 [facility] [address] [id number] [address] [place] [phone] Mar, COPD (chronic obstructive pu lmonary disease) J44.9 [facility] [address] [id number] [address] [place] [phone] Feb, [facility] [address] [id number] [address] [place] [id number] [address], [address] [facility] [address] [facility] [id number] [address] [place] [phone] Jan, [facility] [address] [id number] [address] [place] [phone] Jan, [facility] [address] [id number] [address] [place] [phone] Jan, [facility] [address] [id number] [address] [place] [phone] Dec, Diabetes E11.9 ; Hypoxia R09 .02 [address] Back [address] M54.9 [facility] [address] [id number] [address] [place] [phone] Dec, [facility] [address] [id number] [address] [place] [phone] Nov, [facility] [address] [id number] [address] [place] [phone] Oct, Anxiety F41.9 [facility] [address] [id number] [address] [place] [phone] Oct, Back pain M54.9 [facility] [address] [id number] [address] [place] [phone] September, Back pain M54.9 [facility] [address] [id number] [address] [place] [phone] September, Diabetes E11.9 [facility] [address] [id number] [address] [place] [phone] September, [facility] [address] [id number] [address] [place] [phone] September, Diabetes E11.9 ; Insulin sarai g-term use Z79.4 and Back pain M54.9 [facility] [address] [id number] [address] [place] [phone] Aug, Back pain M54.9 [facility] [address] [facility] [id number] [address] [place] [phone] Aug, Back pain M54.9 ; Anxiety F4 1.9 and Arthropathy, unspecified M12.9 [facility] [address] [facility] [id number] [address] [place] [phone] Jul, Back pain M54.9 [facility] [address] [facility] [id number] [address] [place] [phone] Jul, Anxiety F41.9 [facility] [address] [facility] [id number] [address] [place] [phone] Jul, Back pain M54.9 [facility] [address] [facility] [id number] [address] [place] [id number] Jul, [facility] [address] [facility] [id number] [address] [place] [phone] Jul, [facility] [address] [facility] [id number] [address] [place] [phone] May, Back pain M54.9 ; Diabetes E 11.9 ; Insulin long-term use Z79.4 ; COPD (chronic obstructive pulmonary disease) J44.[address] [facility] [address] [facility] [id number] [address] [place] [phone] May, Chronic pain G89.29 [facility] [address] [facility] [id number] [address] [place] [phone] Apr, [facility] [address] [facility] [id number] [address] [place] [phone] Apr, [facility] [address] [facility] [id number] [address] [place] [phone] Mar, [facility] [address] [facility] [id number] [address] [place] [phone] Mar, Encounter for immunization Z [address] [facility] [address] [facility] [id number] [address] [place] [phone] Feb, [facility] [address] [facility] [id number] [address] [place] [phone] Feb, [facility] [address] [id number] [address] [place] [phone] 23 Jan, 2015 [facility] [address] [id number] [address] [place] [phone] Jan, [facility] [address] [id number] [address] [place] [phone] Dec, [facility] [address] [id number] [address] [place] [phone] Dec, [facility] [address] [id number] [address] [place] [phone] Dec, Unspecified arthropathy, sit e unspecified 716.90 and Diabetes mellitus type 2, uncontrolled 250.02 [facility] [address] [id number] [address] [place] [address], [place] [address] Dec, [facility] [address] [id number] [address] [place] [phone] Nov, [facility] [address] [id number] [address] [place] [phone] Oct, [facility] [address] [id number] [address] [place] [phone] September, [facility] [address] [id number] [address] [place] [phone] September, [facility] [address] [id number] [address] [place] [phone] September, [facility] [address] [id number] [address] [place] [phone] September, [facility] [address] [id number] [address] [place] [phone] Aug, [facility] [address] [id number] [address] [place] [id number] Aug, [facility] [address] [id number] [address] [place] [phone] Jul, [facility] [address] [id number] [address] [place] [address], [place] [id number] 18 Jul, 2014 [facility] [address] [id number] [address] [place] [address], [place] [address] 16 Jul, 2014 [facility] [address] [id number] [address] [place] [address], [place] [address] 16 Jul, 2014 [facility] [address] [id number] [address] [place] [address], [place] [address] 16 Jul, 2014 [facility] [address] [id number] [address] [place] [address], [place] [address] 16 Jul, 2014 [facility] [address] [id number] [address] [place] [address], [place] [address] 16 Jul, 2014 [facility] [address] [id number] [address] [place] [address], [place] [address] 16 Jul, 2014 [facility] [address] [id number] [address] [place] [address], [place] [address] 16 Jul, 2014 [facility] [address] [id number] [address] [place] [address], [place] [address] 13 Jul, 2014 [facility] [address] [id number] [address] [place] [address], [place] [address] 13 Jul, 2014 [facility] [address] [id number] [address] [place] [address], [place] [address] 09 Jul, 2014 [facility] [address] [id number] [address] [place] [address], [place] [address] 09 Jul, 2014 [facility] [address] [id number] [address] [place] [address], [place] [address] 17 Jul, 2014 [facility] [address] [id number] [address] [place] [address], [place] [address] 17 Jul, 2014 [facility] [address] [id number] [address] [place] [address], [place] [address] 16 Jul, 2014 [facility] [address] [id number] [address] [place] [address], [place] [address] 16 Jul, 2014 [facility] [address] [id number] [address] [place] [address], [place] [address] 16 Jul, 2014 [facility] [address] [id number] [address] [place] [address], [place] [address] 16 Jul, 2014 [facility] [address] [id number] [address] [place] [address], [place] [address] 16 Jul, 2014 [facility] [address] [id number] [address] [place] [address], [place] [address] 16 Jul, 2014 [facility] [address] [id number] [address] [place] [address], [place] [address] 16 Jul, 2014 [facility] [address] [id number] [address] [place] [address], [place] [address] 16 Jul, 2014 [facility] [address] [id number] [address] [place] [address], [place] [address] 16 Jul, 2014 [facility] [address] [id number] [address] [place] [address], [place] [address] 16 Jul, 2014 [facility] [address] [id number] [address] [place] [address], [place] [address] 16 Jul, 2014 [facility] [address] [id number] [address] [place] [address], [place] [address] 16 Jul, 2014 [facility] [address] [id number] [address] [place] [address], [place] [address] Jul, 2014 [facility] [address] [id number] [address] [place] [address], [place] [address] 16 Jul, 2014 [facility] [address] [id number] [address] [place] [address], [place] [address] May, [facility] [address] [id number] [address] [place] [phone] May, [facility] [address] [id number] [address] [place] [id number] May, [facility] [address] [id number] [address] [place] [address], [place] [address] May, [facility] [address] [id number] [address] [place] [address], [place] [address] May, [facility] [address] [id number] [address] [place] [address], [place] [address] May, [facility] [address] [id number] [address] [place] [address], [place] [address] May, [facility] [address] [id number] [address] [place] [address], [place] [address] May, [facility] [address] [id number] [address] [place] [address], [place] [address] May, [facility] [address] [id number] [address] [place] [address], [place] [address] May, [facility] [address] [id number] [address] [place] [address], [place] [address] Apr, [facility] [address] [id number] [address] [place] [address], [place] [address] Apr, [facility] [address] [id number] [address] [place] [address], [place] [address] Apr, [facility] [address] [id number] [address] [place] [address], [place] [address] Apr, [facility] [address] [id number] [address] [place] [address], [place] [address] Apr, [facility] [address] [id number] [address] [place] [address], [place] [address] Apr, [facility] [address] [id number] [address] [place] [address], [place] [address] Mar, [facility] [address] [id number] [address] [place] [address], [place] [address] Mar, [facility] [address] [id number] [address] [place] [address], [place] [address] Mar, [facility] [address] [id number] [address] [place] [address], [place] [address] Mar, [facility] [address] [id number] [address] [place] [address], [place] [address] Mar, [facility] [address] [id number] [address] [place] [address], [place] [address] Mar, [facility] [address] [id number] [address] [place] [address], [place] [address] Mar, [facility] [address] [id number] [address] [place] [address], [place] [address] Mar, [facility] [address] [id number] [address] [place] [address], [place] [address] Mar, [facility] [address] [id number] [address] [place] [address], [place] [address] Mar, [facility] [address] [id number] [address] [place] [address], [place] [address] Mar, [facility] [address] [id number] [address] [place] [address], [place] [address] Feb, [facility] [address] [id number] [address] [place] [address], [place] [address] 30 Feb, 2014 [facility] [address] [id number] [address] [place] [address], [place] [address] 15 Feb, 2014 [facility] [address] [id number] [address] [place] [address], [place] [address] 15 Feb, 2014 [facility] [address] [id number] [address] [place] [address], [place] [address] Feb, [facility] [address] [id number] [address] [place] [address], [place] [address] Feb, [facility] [address] [id number] [address] [place] [address], [place] [address] Feb, [facility] [address] [id number] [address] [place] [address], [place] [address] Feb, [facility] [address] [id number] [address] [place] [address], [place] [address] Feb, [facility] [address] [id number] [address] [place] [address], [place] [address] Feb, [facility] [address] [id number] [address] [place] [address], [place] [address] Jan, [facility] [address] [id number] [address] [place] [address], [place] [address] Jan, [facility] [address] [id number] [address] [place] [address], [place] [address] Jan, [facility] [address] [id number] [address] [place] [address], [place] [address] Jan, [facility] [address] [id number] [address] [place] [address], [place] [address] Jan, [facility] [address] [id number] [address] [place] [address], [place] [address] Jan, [facility] [address] [id number] [address] [place] [address], [place] [address] Jan, [facility] [address] [id number] [address] [place] [address], [place] [address] Dec, [facility] [address] [id number] [address] [place] [address], [place] [address] Dec, [facility] [address] [id number] [address] [place] [address], [place] [address] Dec, [facility] [address] [id number] [address] [place] [address], [place] [address] Dec, [facility] [address] [id number] [address] [place] [address], [place] [address] Dec, [facility] [address] [id number] [address] [place] [address], [place] [address] Dec, [facility] [address] [id number] [facility] [place] [address] Dec, [facility] [address] [id number] [address] [place] [address], [place] [address] Dec, [facility] [address] [id number] [address] [place] [address], [place] [address] Oct, [facility] [address] [id number] [address] [place] [address], [place] [address] Oct, [facility] [address] [id number] [address] [place] [address], [place] [address] September, [facility] [address] [id number] [address] [place] [address], [place] [address] September, [facility] [address] [id number] [address] [place] [address], [place] [address] September, [facility] [address] [id number] [address] [place] [address], [place] [address] September, [facility] [address] [id number] [address] [place] [address], [place] [address] September, [facility] [address] [id number] [address] [place] [address], [place] [address] September, [facility] [address] [id number] [address] [place] [address], [place] [address] September, [facility] [address] [id number] [address] [place] [address], [place] [address] Aug, [facility] [address] [id number] [address] [place] [address], [place] [address] Aug, [facility] [address] [id number] [address] [place] [address], [place] [address] Jul, [facility] [address] [id number] [address] [place] [address], [place] [address] Jul, [facility] [address] [id number] [address] [place] [address], [place] [address] 17 Jul, 2013 [facility] [address] [id number] [address] [place] [address], [place] [address] 17 Jul, 2013 [facility] [address] [id number] [address] [place] [address], [place] [address] 14 Jul, 2013 [facility] [address] [id number] [address] [place] [address], [place] [address] 14 Jul, 2013 [facility] [address] [id number] [address] [place] [address], [place] [address] Jul, [facility] [address] [id number] [address] [place] [address], [place] [address] Jul, [facility] [address] [id number] [address] [place] [address], [place] [address] 15 May, 2013 [facility] [address] [id number] [address] [place] [address], [place] [address] 15 May, 2013 [facility] [address] [id number] [address] [place] [address], [place] [address] May, [facility] [address] [id number] [address] [place] [address], [place] [address] May, [facility] [address] [id number] [address] [place] [address], [place] [address] Apr, [facility] [address] [id number] [address] [place] [address], [place] [address] Mar, [facility] [address] [id number] [address] [place] [address], [place] [address] Mar, [facility] [address] [id number] [address] [place] [address], [place] [address] Mar, [facility] [address] [id number] [address] [place] [address], [place] [address] Mar, [facility] [address] [id number] [address] [place] [address], [place] [address] Mar, [facility] [address] [id number] [address] [place] [address], [place] [address] Mar, [facility] [address] [id number] [address] [place] [address], [place] [address] Mar, [facility] [address] [id number] [address] [place] [address], [place] [address] Mar, [facility] [address] [id number] [address] [place] [phone] Mar, [facility] [address] [id number] [address] [place] [address], [place] [address] Mar, [facility] [address] [id number] [address] [place] [address], [place] [address] Mar, [facility] [address] [id number] [address] [place] [address], [place] [address] Mar, [facility] [address] [id number] [address] [place] [address], [place] [address] Feb, [facility] [address] [id number] [address] [place] [address], [place] [address] Feb, [facility] [address] [id number] [address] [place] [address], [place] [address] Feb, [facility] [address] [id number] [address] [place] [id number] Feb, [facility] [address] [id number] [address] [place] [phone] Feb, [facility] [address] [id number] [address] [place] [address], [place] [address] Jan, [facility] [address] [id number] [address] [place] [address], [place] [address] Dec, [facility] [address] [id number] [address] [place] [address], [place] [address] Dec, [facility] [address] [id number] [address] [place] [address], [place] [address] Dec, [facility] [address] [id number] [address] [place] [address], [place] [address] Nov, [facility] [address] [id number] [address] [place] [address], [place] [address] Nov, [facility] [address] [id number] [address] [place] [address], [place] [address] Nov, [facility] [address] [id number] [address] [place] [address], [place] [address] Oct, [facility] [address] [id number] [address] [place] [address], [place] [address] Oct, [facility] [address] [id number] [address] [place] [address], [place] [address] Oct, [facility] [address] [id number] [address] [place] [address], [place] [address] September, [facility] [address] [id number] [address] [place] [address], [place] [address] September, [facility] [address] [id number] [address] [place] [address], [place] [address] September, [facility] [address] [id number] [address] [place] [address] [address] September, [facility] [address] [id number] [address] [place] [address], [place] [address] September, [facility] [address] [id number] [address] [place] [address], [place] [address] Aug, [facility] [address] [id number] [address] [place] [address], [place] [address] Aug, [facility] [address] [id number] [address] [place] [address], [place] [address] Aug, [facility] [address] [id number] [address] [place] [address], [place] [address] Jul, [facility] [address] [id number] [address] [place] [address], [place] [address] Jul, [facility] [address] [id number] [address] [place] [address], [place] [address] Jul, [facility] [address] [id number] [address] [place] [address], [place] [address] Jul, [facility] [address] [id number] [address] [place] [address], [place] [address] Jul, [facility] [address] [id number] [address] [place] [address], [place] [address] Jul, [facility] [address] [id number] [address] [place] [address], [place] [address] Jul, [facility] [address] [id number] [address] [place] [address], [place] [address] May, [facility] [address] [id number] [address] [place] [address], [place] [address] May, [facility] [address] [id number] [address] [place] [address], [place] [address] May, [facility] [address] [id number] [address] [place] [address], [place] [address] Apr, [facility] [address] [id number] [address] [place] [address], [place] [address] Apr, [facility] [address] [id number] [address] [place] [address], [place] [address] Apr, [facility] [address] [id number] [address] [place] [address], [place] [address] Apr, [facility] [address] [id number] [address] [place] [address], [place] [address] Apr, [facility] [address] [id number] [address] [place] [address], [place] [address] 29 Mar, 2012 [facility] [address] [id number] [address] [place] [address], [place] [address] Mar, [facility] [address] [id number] [address] [place] [address], [place] [address] Mar, [facility] [address] [id number] [address] [place] [address], [place] [address] Mar, [facility] [address] [id number] [address] [place] [address], [place] [address] Feb, [facility] [address] [id number] [address] [place] [address], [place] [address] Feb, [facility] [address] [id number] [address] [place] [address], [place] [address] Feb, [facility] [address] [id number] [address] [place] [address], [place] [address] Feb, [facility] [address] [id number] [address] [place] [address], [place] [address] Feb, [facility] [address] [id number] [address] [place] [address], [place] [address] Jan, [facility] [address] [id number] [address] [place] [address], [place] [address] Dec, [facility] [address] [id number] [address] [place] [address], [place] [address] Dec, [facility] [address] [id number] [address] [place] [address], [place] [address] Dec, [facility] [address] [id number] [address] [place] [address], [place] [address] Nov, [facility] [address] [id number] [address] [place] [address], [place] [address] Nov, [facility] [address] [id number] [address] [place] [address], [place] [address] Nov, [facility] [address] [id number] [address] [place] [address], [place] [address] Oct, [facility] [address] [id number] [address] [place] [address], [place] [address] Oct, [facility] [address] [id number] [address] [place] [address], [place] [address] Oct, [facility] [address] [id number] [address] [place] [address], [place] [address] Oct, [facility] [address] [id number] [address] [place] [address], [place] [address] September, [facility] [address] [id number] [address] [place] [address], [place] [address] September, [facility] [address] [id number] [address] [place] [address], [place] [address] 30 Aug, 2011 [facility] [address] [id number] [address] [place] [address], [place] [address] Aug, [facility] [address] [id number] [address] [place] [address], [place] [address] Aug, [facility] [address] [id number] [address] [place] [address], [place] [address] Aug, [facility] [address] [id number] [address] [place] [address], [place] [address] Aug, [facility] [address] [id number] [address] [place] [address], [place] [address] Aug, [facility] [address] [id number] [address] [place] [address], [place] [address] Aug, [facility] [address] [id number] [address] [place] [address], [place] [address] Jul, [facility] [address] [id number] [address] [place] [address], [place] [address] Jul, [facility] [address] [id number] [address] [place] [address], [place] [address] 14 Jul, 2011 [facility] [address] [id number] [address] [address] May, [facility] [address] [id number] [address] [place] [phone] May, [facility] [address] [id number] [address] [place] [phone] May, [facility] [address] [id number] [address] [place] [phone] Apr, [facility] [address] [id number] [address] [place] [phone] Apr, [facility] [address] [id number] [address] [place] [phone] Mar, [facility] [address] [id number] [address] [place] [phone] Mar, [facility] [address] [id number] [address] [place] [phone] Mar, [facility] [address] [id number] [address] [place] [phone] Mar, [facility] [address] [id number] [address] [place] [phone] Mar, [facility] [address] [id number] [address] [place] [phone] Mar, [facility] [address] [id number] [address] [place] [phone] Feb, [facility] [address] [id number] [address] [place] [phone] Feb, [facility] [address] [id number] [address] [place] [phone] Feb, IMMUNIZATIONS No Known Immunizations SOCIAL HISTORY Never Assessed REASON FOR VISIT PLAN OF CARE VITAL SIGNS MEDICATIONS Unknown Medications RESULTS No Results PROCEDURES Procedure Date Ordered Result Body Site GLYCATED HEMOGLOBIN TEST Mar 10, 2013 MICROALBUMIN, SEMIQUANT Mar 10, 2013 MICROALBUMIN, QUANTITATIVE Mar 10, 2013 LIPID PANEL Mar 10, 2013 COMPREHEN METABOLIC PANEL Mar 10, 2013 VENIPUNCT, ROUTINE* Mar 10, 2013 INSTRUCTIONS MEDICATIONS ADMINISTERED No Known Medications [...] foot infections x 3 2016 Hospitalization History [facility] - right big t oe removed 2019
--- OUTSIDE RECORDS SUMMARY | 2020-01-03 08:14 | XMS REPORT ---
Author Author Tra SILVERIO Organization [facility] Address [address] [place] [address] Care Team Providers Care Section Crews Activities Clerk Name Role Phone FERNY SILVERIO Unavailable PROBLEMS Type Condition ICD9-CM Code UMM18-AU Code Onset Dates Condition S tatus SNOMED Code Problem Hypertension I10 Active 8326952 3 Problem Hypoxia R09.02 Active 842847838 Problem COPD (chronic obstructive pulmonary disease) J44.9 Active 73373578 Problem Lumbar radiculopathy, chronic M54.16 Active 017314222 Problem correction current use of insulin Z79.4 Active 537032122 Problem Recurrent major depressive disorder, in full remission F33.42 Active 152408814 Problem Hyperlipidemia, unspecified E78.5 Ac tive 12590950 Problem PAD (peripheral artery disease) I73.9 Active 934146637 Problem Type 2 diabetes mellitus with other specified complication E11.69 Active 315512036914 Problem Anxiety F41.9 Active 21261206 Problem Type 2 diabetes mellitus wit h diabetic peripheral angiopathy without gangrene E11.51 Active 926744708 Problem ED (erectile dysfunction) of organic origin N52.9 Active 839215486 Problem Arthritis M19.90 Active 5023868 Problem Morbid (severe) obesity due to excess calories E66 .01 Active 550134595 ALLERGIES No Information ENCOUNTERS Encounter Location Date Diagnosis [facility] [address] [id number] [address] [place] [id number] September, Back pain M54.9 and Lumbar r adiculopathy, chronic M54.[id number] [address] September, Anxiety F41.9 [facility] [address] [id number] [place] [address] Aug, [facility] [address] [id number] [address] [place] [id number] 24 Aug, 2019 Back pain M54.9 and Lumbar r adiculopathy, chronic M54.16 [facility] [address] [id number] [address] [place] [id number] 10 Aug, 2019 Anxiety F41.9 ; Back pain M5 4.9 and Lumbar radiculopathy, chronic M54.16 [facility] [address] [id number] [address] [place] [id number] 09 Aug, 2019 Lumbar radiculopathy, chroni c M54.16 ; Anxiety F41.9 ; Type 2 diabetes mellitus with other specified complication E11.69 and Hypertension I10 [facility] [address] [id number] [address] [place] [id number] 30 Jul, 2019 [facility] [address] [id number] [address] [place] [id number] 27 Jul, 2019 Lumbar radiculopathy, chroni c M54.16 ; Back pain M54.9 and Anxiety F41.9 [facility] [address] [id number] [address] [place] [id number] 23 Jul, 2019 [facility] [address] [id number] [address] [place] [id number] 13 Jul, 2019 Anxiety F41.9 [facility] [address] [id number] [address] [place] [id number] Jul, Anxiety F41.9 [facility] [address] [id number] [address] [place] [id number] Jul, Back pain M54.9 [facility] [address] [id number] [address] [place] [id number] Jul, Back pain M54.9 [facility] [address] [id number] [address] [place] [id number] 28 Jul, 2019 Lumbar radiculopathy, chroni c M54.16 [facility] [address] [id number] [address] [place] [id number] 28 Jul, 2019 Back pain M54.9 [facility] [address] [id number] [address] [place] [id number] 07 Jul, 2019 Encounter for Medicare sam [...] diabetes mellitus with other specified complication E11.69 [facility] [address] [id number] [address] [place] [id number] 03 Jul, 2019 Back pain M54.9 [place] [address] [id number] [address] [place] [id number] Jul, Anxiety F41.9 [facility] [address] [id number] [address] [place] [id number] May, [facility] [address] [id number] [address] [place] [id number] May, Lumbar radiculopathy, chroni c M54.16 [facility] [address] [id number] [address] [place] [phone] May, Back pain M54.9 [facility] [address] [id number] [address] [place] [id number] May, [facility] [address] [id number] [address] [place] [id number] May, Back pain M54.9 and Anxiety F41.9 [facility] [address] [id number] [address] [place] [id number] May, [place] [address] [id number] [address] [place] [id number] May, Type 2 diabetes mellitus wit h diabetic peripheral angiopathy without gangrene E11.51 ; Arthritis M19.90 ; ED (erectile dysfunction) of organic origin N52.9 ; Morbid (severe) obesity due to excess calories E66.01 and Lumbar radiculopathy, chronic M54.16 [facility] [address] [id number] [address] [place] [id number] May, Diabetes E11.9 [facility] [address] [id number] [address] [place] [id number] Apr, [facility] [address] [id number] [address] [place] [phone] Apr, Back pain M54.9 [facility] [address] [id number] [address] [place] [id number] Apr, [facility] [address] [id number] [address] [place] [id number] Apr, Anxiety F41.9 [facility] [address] [id number] [address] [place] [id number] Apr, Back pain M54.9 and Lumbar r adiculopathy, chronic M54.16 [facility] [address] [id number] [address] [place] [id number] Apr, Back pain M54.9 ; Anxiety F4 1.9 and Lumbar radiculopathy, chronic M54.16 [facility] [address] [id number] [address] [place] [id number] Mar, [facility] [address] [id number] [address] [place] [phone] Mar, [facility] [address] [id number] [address] [place] [id number] Mar, Back pain M54.9 [facility] [address] [id number] [address] [place] [id number] Mar, [facility] [address] [place] [id number] [address] [place] [phone] Feb, Type 2 diabetes mellitus wit h diabetic peripheral angiopathy without gangrene E11.51 ; Lumbar radiculopathy, chronic M54.16 ; ED (erectile dysfunction) of organic origin N52.9 ; Encounter for immunization Z23 ; COPD (chronic obstructive pulmonary disease) J44.9 and Anxiety F41.9 [facility] [address] [id number] [address] [place] [phone] Feb, Back pain M54.9 [facility] [address] [id number] [address] [place] [id number] Feb, [facility] [address] [id number] [address] [place] [phone] Feb, [facility] [address] [id number] [address] [place] [phone] Feb, [facility] [address] [id number] [address] [place] [id number] Feb, Back pain M54.9 [facility] [address] [id number] [address] [place] [phone] Feb, [facility] [address] [id number] [address] [place] [id number] Jan, Anxiety F41.9 [facility] [address] [id number] [address] [place] [id number] Jan, Anxiety F41.9 [facility] [address] [id number] [address] [place] [phone] Jan, [facility] [address] [id number] [address] [place] [id number] Jan, [facility] [address] [id number] [address] [place] [id number] Jan, Back pain M54.9 [facility] [address] [id number] [address] [place] [phone] Jan, [facility] [address] [id number] [address] [place] [id number] Dec, Acute non-recurrent frontal sinusitis J01.10 [facility] [address] [id number] [address] [place] [id number] Dec, Acute non-recurrent frontal sinusitis J01.10 [facility] [address] [id number] [address] [place] [id number] Dec, Type 2 diabetes mellitus wit h diabetic peripheral angiopathy without gangrene E11.51 ; Lumbar radiculopathy, chronic M54.16 ; Recurrent major depressive disorder, in full remission F33.42 and Anxiety F41.9 [facility] [address] [id number] [address] [place] [id number] Dec, [facility] [address] [id number] [address] [place] [id number] Nov, Anxiety F41.9 [facility] [address] [id number] [address] [place] [phone] Nov, [facility] [address] [id number] [address] [place] [id number] Nov, Back pain M54.9 [facility] [address] [id number] [address] [place] [phone] Nov, [facility] [address] [id number] [address] [place] [id number] Nov, Back pain M54.9 [facility] [address] [id number] [address] [place] [id number] Nov, Anxiety F41.9 [facility] [address] [id number] [address] [place] [phone] Nov, [facility] [address] [id number] [address] [place] [id number] Oct, Back pain M54.9 [facility] [address] [id number] [address] [place] [id number] Oct, [facility] [address] [id number] [address] [place] [id number] Oct, [facility] [address] [id number] [address] [place] [phone] Oct, [facility] [address] [id number] [address] [place] [id number] September, Back pain M54.9 [facility] [address] [id number] [address] [place] [id number] September, [facility] [address] [id number] [address] [place] [phone] September, [facility] [address] [id number] [address] [place] [id number] September, [facility] [address] [id number] [address] [place] [id number] Aug, Back pain M54.9 [facility] [address] [id number] [address] [place] [id number] Aug, Anxiety F41.9 [facility] [address] [id number] [address] [place] [id number] Aug, [facility] [address] [id number] [address] [place] [id number] Aug, Pressure ulcer of other site , stage 3 L89.893 and COPD (chronic obstructive pulmonary disease) J44.9 [facility] [address] [id number] [address] [place] [id number] Aug, History of smoking Z87.891 [facility] [address] [id number] [address] [place] [id number] Jul, Type 2 diabetes mellitus wit h diabetic peripheral angiopathy without gangrene E11.51 [facility] [address] [id number] [address] [place] [id number] Jul, Back pain M54.9 [facility] [address] [id number] [address] [place] [id number] 19 Jul, 2018 Anxiety F41.9 [facility] [address] [id number] [address] [place] [id number] 18 Jul, 2018 [facility] [address] [id number] [address] [place] [id number] 13 Jul, 2018 Back pain M54.9 [facility] [address] [id number] [address] [place] [id number] 12 Jul, 2018 Back pain M54.9 [facility] [address] [id number] [address] [place] [id number] 11 Jul, 2018 Lumbar radiculopathy, chroni c M54.16 ; Hypertension I10 and Type 2 diabetes mellitus with diabetic peripheral angiopathy without gangrene E11.51 [facility] [address] [id number] [address] [place] [id number] Jul, Back pain M54.9 [facility] [address] [id number] [address] [place] [id number] Jul, Back pain M54.9 and Anxiety F41.9 [facility] [address] [id number] [address] [place] [id number] Jul, [facility] [address] [id number] [address] [place] [id number] May, Back pain M54.9 and Anxiety F41.9 [facility] [address] [id number] [address] [place] [id number] May, [facility] [address] [id number] [address] [place] [id number] Apr, Radiculopathy of lumbar rhiannon on M54.16 ; Back pain M54.9 and Anxiety F41.9 [facility] [address] [id number] [address] [place] [id number] Apr, Diabetes E11.9 ; Muscle spas m M62.838 and Lumbar radiculopathy, chronic M54.16 [facility] [address] [id number] [address] [place] [id number] Apr, [facility] [address] [id number] [address] [place] [id number] Apr, [facility] [address] [id number] [address] [place] [id number] Mar, Back pain M54.9 and Anxiety F41.9 [facility] [address] [id number] [address] [place] [phone] Mar, [facility] [address] [id number] [address] [place] [id number] Mar, [facility] [address] [id number] [address] [place] [id number] Mar, [facility] [address] [id number] [address] [place] [id number] Mar, Encounter for immunization Z 23 [facility] [address] [id number] [address] [place] [id number] Feb, Back pain M54.9 and Anxiety F41.9 [facility] [address] [id number] [address] [place] [id number] Feb, Back pain M54.9 and Anxiety F41.9 [facility] [address] [id number] [address] [place] [id number] Jan, Back pain M54.9 and Anxiety F41.9 [facility] [address] [id number] [address] [place] [id number] Jan, [facility] [address] [id number] [address] [place] [id number] Dec, [facility] [address] [id number] [address] [place] [id number] Dec, Back pain M54.9 and Anxiety F41.9 [facility] [address] [id number] [address] [place] [id number] 13 Dec, 2017 Diabetes E11.9 ; Type 2 diab etes mellitus with diabetic peripheral angiopathy without gangrene E11.51 ; Lumbar radiculopathy, chronic M54.16 ; COPD (chronic obstructive pulmonary disease) J44.9 and Anxiety F41.9 [facility] [address] [id number] [address] [place] [id number] Dec, Back pain M54.9 and Anxiety F41.9 [place] [address] [id number] [address] [place] [id number] Nov, Back pain M54.9 and Anxiety F41.9 [place] [address] [id number] [address] [place] [id number] Oct, [place] [address] [id number] [address] [place] [id number] Oct, Back pain M54.9 and Anxiety F41.9 [place] [address] [id number] [address] [place] [id number] September, Anxiety F41.9 and Back pain M54.9 [place] [address] [id number] [address] [place] [id number] September, Diabetes E11.9 ; Hypertensio n I10 ; COPD (chronic obstructive pulmonary disease) J44.9 and Lumbar radiculopathy, chronic M54.16 [place] [address] [id number] [address] [place] [phone] September, Anxiety F41.9 [facility] [address] [id number] [address] [place] [phone] Aug, [facility] [address] [id number] [address] [place] [phone] Aug, [facility] [address] [id number] [address] [place] [phone] Aug, Anxiety F41.9 and Back pain M54.9 [facility] [address] [id number] [address] [place] [phone] Aug, Medicare annual wellness vis it, initial [...] and correction current use of insulin Z79.4 [facility] [address] [id number] [address] [place] [id number] Jul, Back pain M54.9 [facility] [address] [id number] [address] [place] [id number] Jul, [facility] [address] [id number] [address] [place] [id number] Jul, Anxiety F41.9 and Back pain M54.9 [facility] [address] [id number] [address] [place] [id number] Jul, Diabetes E11.9 [facility] [address] [id number] [address] [place] [id number] May, [facility] [address] [id number] [address] [place] [phone] May, Diabetes E11.9 ; Anxiety F41 .9 ; Back pain M54.9 and COPD (chronic obstructive pulmonary disease) J44.9 [facility] [address] [id number] [address] [place] [id number] May, Back pain M54.9 [facility] [address] [id number] [address] [place] [id number] May, [facility] [address] [id number] [address] [place] [id number] Apr, Back pain M54.9 [facility] [address] [id number] [address] [place] [id number] 30 Mar, 2017 Back pain M54.9 [facility] [address] [id number] [address] [place] [id number] 20 Mar, 2017 [facility] [address] [id number] [address] [place] [id number] 16 Mar, 2017 [facility] [address] [id number] [address] [place] [id number] 14 Mar, 2017 Radiculopathy of lumbar rhiannon on M54.16 [facility] [address] [id number] [address] [place] [id number] 13 Mar, 2017 [facility] [address] [id number] [address] [place] [id number] 07 Mar, 2017 Encounter for immunization Z 23 and Lumbar radiculopathy, chronic M54.16 [facility] [address] [id number] [address] [place] [phone] Mar, Back pain M54.9 and Anxiety F41.9 [facility] [address] [id number] [address] [place] [id number] 10 Feb, 2017 Acute bilateral low back boy n with left-sided sciatica M54.42 and Acute bilateral low back pain with right-sided sciatica M54.41 [facility] [address] [id number] [address] [place] [id number] Feb, [facility] [address] [id number] [address] [place] [id number] Feb, Back pain M54.9 [facility] [address] [id number] [address] [place] [id number] 05 Jan, 2017 Back pain M54.9 and Anxiety F41.9 [facility] [address] [id number] [address] [place] [id number] 05 Jan, 2017 Diabetes E11.9 [facility] [address] [id number] [address] [place] [id number] 14 Dec, 2016 Diabetes E11.9 ; Back pain M 54.9 ; Anxiety F41.9 and Insulin long- term use Z79.4 [facility] [address] [id number] [address] [place] [id number] 09 Dec, 2016 Anxiety F41.9 [facility] [address] [id number] [address] [place] [id number] Dec, Back pain M54.9 [facility] [address] [id number] [address] [place] [id number] Nov, Back pain M54.9 [facility] [address] [id number] [address] [place] [id number] Oct, Back pain M54.9 and Anxiety F41.9 [facility] [address] [id number] [address] [place] [id number] September, Back pain M54.9 [facility] [address] [id number] [address] [place] [id number] September, Back pain M54.9 and Anxiety F41.9 [facility] [address] [id number] [address] [place] [id number] Aug, Diabetes E11.9 ; Anxiety F41 .9 ; Back pain M54.9 and PAD (peripheral artery disease) I73.9 [facility] [address] [id number] [address] [place] [id number] Aug, Anxiety F41.9 [facility] [address] [id number] [address] [place] [id number] 14 Aug, 2016 Back pain M54.9 [facility] [address] [id number] [address] [place] [id number] 23 Jul, 2016 Back pain M54.9 [facility] [address] [id number] [address] [place] [id number] Jul, Back pain M54.9 [facility] [address] [id number] [address] [place] [id number] 23 Jul, 2016 Back pain M54.9 [facility] [address] [id number] [address] [place] [id number] 16 Jul, 2016 Dorsalgia M54.9 [facility] [address] [id number] [address] [place] [id number] 14 Jul, 2016 [facility] [address] [id number] [address] [place] [id number] May, Back pain M54.9 [facility] [address] [id number] [address] [place] [id number] May, Diabetes E11.9 ; Anxiety F41 .9 ; Port catheter in place Z95.828 ; Encounter for immunization Z23 and Insulin long-term use Z79.4 [facility] [address] [id number] [address] [place] [id number] Apr, Back pain M54.9 [facility] [address] [id number] [address] [place] [id number] Apr, Back pain M54.9 [facility] [address] [id number] [address] [place] [id number] Apr, [facility] [address] [id number] [address] [place] [id number] Apr, Back pain M54.9 [facility] [address] [id number] [address] [place] [phone] Mar, COPD (chronic obstructive pu lmonary disease) J44.9 [facility] [address] [id number] [address] [place] [id number] Feb, [facility] [address] [id number] [address] [place] [phone] 30 Jan, 2016 [facility] [address] [id number] [address] [place] [phone] Jan, [facility] [address] [id number] [address] [place] [phone] Jan, [facility] [address] [id number] [address] [place] [phone] Jan, [facility] [address] [id number] [address] [place] [id number] Dec, Diabetes E11.9 ; Hypoxia R09 .02 and Back pain M54.9 [facility] [address] [id number] [address] [place] [id number] Dec, [facility] [address] [id number] [address] [place] [phone] Nov, [facility] [address] [id number] [address] [place] [id number] Oct, Anxiety F41.9 [facility] [address] [id number] [address] [place] [phone] Oct, Back pain M54.9 [facility] [address] [id number] [address] [place] [id number] September, Back pain M54.9 [facility] [address] [id number] [address] [place] [phone] September, Diabetes E11.9 [facility] [address] [id number] [address] [place] [phone] September, [facility] [address] [id number] [address] [place] [id number] September, Diabetes E11.9 ; Insulin sarai g-term use Z79.4 and Back pain M54.9 [facility] [address] [id number] [address] [place] [id number] Aug, Back pain M54.9 [facility] [address] [id number] [address] [place] [id number] Aug, Back pain M54.9 ; Anxiety F4 1.9 and Arthropathy, unspecified M12.9 [facility] [address] [id number] [address] [place] [phone] Jul, Back pain M54.9 [facility] [address] [id number] [address] [place] [id number] Jul, Anxiety F41.9 [facility] [address] [id number] [address] [place] [id number] Jul, Back pain M54.9 [facility] [address] [id number] [address] [place] [phone] Jul, [facility] [address] [id number] [address] [place] [id number] Jul, [facility] [address] [id number] [address] [place] [id number] May, Back pain M54.9 ; Diabetes E 11.9 ; Insulin long-term use Z79.4 ; COPD (chronic obstructive pulmonary disease) J44.9 and Hypertension I10 [facility] [address] [id number] [address] [place] [address] May, Chronic pain G89.29 [facility] [address] [id number] [address] [place] [id number] Apr, [facility] [address] [id number] [address] [place] [id number] Apr, [facility] [address] [id number] [address] [place] [id number] Mar, [facility] [address] [id number] [address] [place] [id number] Mar, Encounter for immunization Z 23 and Diabetes E11.9 [facility] [address] [id number] [address] [place] [id number] Feb, [facility] [address] [id number] [address] [place] [phone] Feb, [facility] [address] [id number] [address] [place] [phone] 23 Jan, 2015 [facility] [address] [id number] [address] [place] [id number] Jan, [facility] [address] [id number] [address] [place] [phone] Dec, [facility] [address] [id number] [address] [place] [id number] Dec, [facility] [address] [id number] [address] [place] [id number] Dec, Unspecified arthropathy, sit e unspecified 716.90 and Diabetes mellitus type 2, uncontrolled 250.02 [facility] [address] [id number] [address] [place] [address], [place] [address] Dec, [facility] [address] [id number] [address] [place] [id number] Nov, [facility] [address] [id number] [address] [place] [phone] Oct, [facility] [address] [id number] [address] [place] [id number] September, [facility] [address] [id number] [address] [place] [id number] September, [facility] [address] [id number] [address] [place] [phone] September, [facility] [address] [id number] [address] [place] [id number] September, [facility] [address] [id number] [address] [place] [phone] Aug, [facility] [address] [id number] [address] [place] [id number] Aug, [facility] [address] [id number] [address] [place] [id number] Jul, [facility] [address] [id number] [address] [place] [address], [place] [address] 18 Jul, 2014 [facility] [address] [id number] [address] [place] [address], [place] [address] 16 Jul, 2014 [facility] [address] [id number] [address] [place] [address], [place] [address] 16 Jul, 2014 [facility] [address] [id number] [address] [place] [address], [place] [address] 16 Jul, 2014 [facility] [address] [id number] [address] [place] [address], [place] [address] 16 Jul, 2014 [facility] [address] [id number] [address] [place] [address], [place] [address] 16 Jul, 2014 [facility] [address] [id number] [address] [place] [address], [place] [address] 16 Jul, 2014 [facility] [address] [id number] [address] [place] [address], [place] [address] 16 Jul, 2014 [facility] [address] [id number] [address] [place] [address], [place] [address] 13 Jul, 2014 [facility] [address] [id number] [address] [place] [address], [place] [address] 13 Jul, 2014 [facility] [address] [id number] [address] [place] [address], [place] [address] 09 Jul, 2014 [facility] [address] [id number] [address] [place] [address], [place] [address] 09 Jul, 2014 [facility] [address] [id number] [address] [place] [address], [place] [address] 17 Jul, 2014 [facility] [address] [id number] [address] [place] [address], [place] [address] 17 Jul, 2014 [facility] [address] [id number] [address] [place] [address], [place] [address] 16 Jul, 2014 [facility] [address] [id number] [address] [place] [address], [place] [address] 16 Jul, 2014 [facility] [address] [id number] [address] [place] [address], [place] [address] 16 Jul, 2014 [facility] [address] [id number] [address] [place] [address], [place] [address] 16 Jul, 2014 [facility] [address] [id number] [address] [place] [address], [place] [address] 16 Jul, 2014 [facility] [address] [id number] [address] [place] [address], [place] [address] 16 Jul, 2014 [facility] [address] [id number] [address] [place] [address], [place] [address] 16 Jul, 2014 [facility] [address] [id number] [address] [place] [address], [place] [address] 16 Jul, 2014 [facility] [address] [id number] [address] [place] [address], [place] [address] 16 Jul, 2014 [facility] [address] [id number] [address] [place] [address], [place] [address] 16 Jul, 2014 [facility] [address] [id number] [address] [place] [address], [place] [address] 16 Jul, 2014 [facility] [address] [id number] [address] [place] [address], [place] [address] 16 Jul, 2014 [facility] [address] [id number] [address] [place] [address], [place] [address] Jul, 2014 [facility] [address] [id number] [address] [place] [address], [place] [address] 16 Jul, 2014 [facility] [address] [id number] [address] [place] [address], [place] [address] May, [facility] [address] [id number] [address] [place] [phone] May, [facility] [address] [id number] [address] [place] [id number] May, [facility] [address] [id number] [address] [place] [address], [place] [address] May, [facility] [address] [id number] [address] [place] [address], [place] [address] May, [facility] [address] [id number] [address] [place] [address], [place] [address] May, [facility] [address] [id number] [address] [place] [address], [place] [address] May, [facility] [address] [id number] [address] [place] [address], [place] [address] May, [facility] [address] [id number] [address] [place] [address], [place] [address] May, [facility] [address] [id number] [address] [place] [address], [place] [address] May, [facility] [address] [id number] [address] [place] [address], [place] [address] Apr, [facility] [address] [id number] [address] [place] [address], [place] [address] Apr, [facility] [address] [id number] [address] [place] [address], [place] [address] Apr, [facility] [address] [id number] [address] [place] [address], [place] [address] Apr, [facility] [address] [id number] [address] [place] [address], [place] [address] Apr, [facility] [address] [id number] [address] [place] [address], [place] [address] Apr, [facility] [address] [id number] [address] [place] [address], [place] [address] Mar, [facility] [address] [id number] [address] [place] [address], [place] [address] Mar, [facility] [address] [id number] [address] [place] [address], [place] [address] Mar, [facility] [address] [id number] [address] [place] [address], [place] [address] Mar, [facility] [address] [id number] [address] [place] [address], [place] [address] Mar, [facility] [address] [id number] [address] [place] [address], [place] [address] Mar, [facility] [address] [id number] [address] [place] [address], [place] [address] Mar, [facility] [address] [id number] [address] [place] [address], [place] [address] Mar, [facility] [address] [id number] [address] [place] [address], [place] [address] Mar, [facility] [address] [id number] [address] [place] [address], [place] [address] Mar, [facility] [address] [id number] [address] [place] [address], [place] [address] Mar, [facility] [address] [id number] [address] [place] [address], [place] [address] Feb, [facility] [address] [id number] [address] [place] [address], [place] [address] 30 Feb, 2014 [facility] [address] [id number] [address] [place] [address], [place] [address] 15 Feb, 2014 [facility] [address] [id number] [address] [place] [address], [place] [address] 15 Feb, 2014 [facility] [address] [id number] [address] [place] [address], [place] [address] Feb, [facility] [address] [id number] [address] [place] [address], [place] [address] Feb, [facility] [address] [id number] [address] [place] [address], [place] [address] Feb, [facility] [address] [id number] [address] [place] [address], [place] [address] Feb, [facility] [address] [id number] [address] [place] [address], [place] [address] Feb, [facility] [address] [id number] [address] [place] [address], [place] [address] Feb, [facility] [address] [id number] [address] [place] [address], [place] [address] Jan, [facility] [address] [id number] [address] [place] [address], [place] [address] Jan, [facility] [address] [id number] [address] [place] [address], [place] [address] Jan, [facility] [address] [id number] [address] [place] [address], [place] [address] Jan, [facility] [address] [id number] [address] [place] [address], [place] [address] Jan, [facility] [address] [id number] [address] [place] [address], [place] [address] Jan, [facility] [address] [id number] [address] [place] [address], [place] [address] Jan, [facility] [address] [id number] [address] [place] [address], [place] [address] Dec, [facility] [address] [id number] [address] [place] [address], [place] [address] Dec, [facility] [address] [id number] [address] [place] [address], [place] [address] Dec, [facility] [address] [id number] [address] [place] [address], [place] [address] Dec, [facility] [address] [id number] [address] [place] [address], [place] [address] Dec, [facility] [address] [id number] [address] [place] [address], [place] [address] Dec, [facility] [address] [id number] [facility] [address] Dec, [facility] [address] [id number] [address] [place] [address], [place] [address] Dec, [facility] [address] [id number] [address] [place] [address], [place] [address] Oct, [facility] [address] [id number] [address] [place] [address], [place] [address] Oct, [facility] [address] [id number] [address] [place] [address], [place] [address] September, [facility] [address] [id number] [address] [place] [address], [place] [address] September, [facility] [address] [id number] [address] [place] [address], [place] [address] September, [facility] [address] [id number] [address] [place] [address], [place] [address] September, [facility] [address] [id number] [address] [place] [address], [place] [address] September, [facility] [address] [id number] [address] [place] [address], [place] [address] September, [facility] [address] [id number] [address] [place] [address], [place] [address] September, [facility] [address] [id number] [address] [place] [address], [place] [address] Aug, [facility] [address] [id number] [address] [place] [address], [place] [address] Aug, [facility] [address] [id number] [address] [place] [address], [place] [address] Jul, [facility] [address] [id number] [address] [place] [address], [place] [address] Jul, [facility] [address] [id number] [address] [place] [address], [place] [address] 17 Jul, 2013 [facility] [address] [id number] [address] [place] [address], [place] [address] 17 Jul, 2013 [facility] [address] [id number] [address] [place] [address], [place] [address] 14 Jul, 2013 [facility] [address] [id number] [address] [place] [address], [place] [address] 14 Jul, 2013 [facility] [address] [id number] [address] [place] [address], [place] [address] Jul, [facility] [address] [id number] [address] [place] [address], [place] [address] Jul, [facility] [address] [id number] [address] [place] [address], [place] [address] 15 May, 2013 [facility] [address] [id number] [address] [place] [address], [place] [address] 15 May, 2013 [facility] [address] [id number] [address] [place] [address], [place] [address] May, [facility] [address] [id number] [address] [place] [address], [place] [address] May, [facility] [address] [id number] [address] [place] [address], [place] [address] Apr, [facility] [address] [id number] [address] [place] [address], [place] [address] Mar, [facility] [address] [id number] [address] [place] [address], [place] [address] Mar, [facility] [address] [id number] [address] [place] [address], [place] [address] Mar, [facility] [address] [id number] [address] [place] [address], [place] [address] Mar, [facility] [address] [id number] [address] [place] [address], [place] [address] Mar, [facility] [address] [id number] [address] [place] [address], [place] [address] Mar, [facility] [address] [id number] [address] [place] [address], [place] [address] Mar, [facility] [address] [id number] [address] [place] [address], [place] [address] Mar, [facility] [address] [id number] [address] [place] [address] Mar, [facility] [address] [id number] [address] [place] [address], [place] [address] Mar, [facility] [address] [id number] [address] [place] [address], [place] [address] Mar, [facility] [address] [id number] [address] [place] [address], [place] [address] Mar, [facility] [address] [id number] [address] [place] [address], [place] [address] Feb, [facility] [address] [id number] [address] [place] [address], [place] [address] Feb, [facility] [address] [id number] [address] [place] [address], [place] [address] Feb, [facility] [address] [id number] [address] [place] [address] Feb, [facility] [address] [id number] [address] [place] [address] Feb, [facility] [address] [id number] [address] [place] [address], [place] [address] Jan, [facility] [address] [id number] [address] [place] [address], [place] [address] Dec, [facility] [address] [id number] [address] [place] [address], [place] [address] Dec, [facility] [address] [id number] [address] [place] [address], [place] [address] Dec, [facility] [address] [id number] [address] [place] [address], [place] [address] Nov, [facility] [address] [id number] [address] [place] [address], [place] [address] Nov, [facility] [address] [id number] [address] [place] [address], [place] [address] Nov, [facility] [address] [id number] [address] [place] [address], [place] [address] Oct, [facility] [address] [id number] [address] [place] [address], [place] [address] Oct, [facility] [address] [id number] [address] [place] [address], [place] [address] Oct, [facility] [address] [id number] [address] [place] [address], [place] [address] September, [facility] [address] [id number] [address] [place] [address], [place] [address] September, [facility] [address] [id number] [address] [place] [address], [place] [address] September, [facility] [address] [id number] [address] [place] [address], [place] [address] September, [facility] [address] [id number] [address] [place] [address], [place] [address] September, [facility] [address] [id number] [address] [place] [address], [place] [address] Aug, [facility] [address] [id number] [address] [place] [address], [place] [address] Aug, [facility] [address] [id number] [address] [place] [address], [place] [address] Aug, [facility] [place] [address] [id number] [address] [place] [address], [place] [address] Jul, [facility] [place] [address] [id number] [address] [place] [address], [place] [address] Jul, [facility] [address] [id number] [address] [place] [address], [place] [address] Jul, [facility] [place] [address] [id number] [address] [place] [address], [place] [address] Jul, [facility] [address] [id number] [address] [place] [address], [place] [address] Jul, [facility] [address] [id number] [address] [place] [address], [place] [address] Jul, [facility] [address] [id number] [address] [place] [address], [place] [address] Jul, [facility] [place] [address] [id number] [address] [place] [address], [place] [address] May, [facility] [place] [address] [id number] [address] [place] [address], [place] [address] May, [facility] [place] [address] [id number] [address] [place] [address], [place] [address] May, [facility] [place] [address] [id number] [address] [place] [address], [place] [address] Apr, [facility] [place] [address] [id number] [address] [place] [address], [place] [address] Apr, [facility] [address] [id number] [address] [place] [address], [place] [address] Apr, [facility] [address] [id number] [address] [place] [address], [place] [address] Apr, [facility] [address] [id number] [address] [place] [address], [place] [address] Apr, [facility] [address] [id number] [address] [place] [address], [place] [address] 29 Mar, 2012 [facility] [address] [id number] [address] [place] [address], [place] [address] Mar, [facility] [address] [id number] [address] [place] [address], [place] [address] Mar, [facility] [address] [id number] [address] [place] [address], [place] [address] Mar, [facility] [address] [id number] [address] [place] [address], [place] [address] Feb, [facility] [address] [id number] [address] [place] [address], [place] [address] Feb, [facility] [address] [id number] [address] [place] [address], [place] [address] Feb, [facility] [address] [id number] [address] [place] [address], [place] [address] Feb, [facility] [address] [id number] [address] [place] [address], [place] [address] Feb, [facility] [address] [id number] [address] [place] [address], [place] [address] Jan, [facility] [address] [id number] [address] [place] [address], [place] [address] Dec, [facility] [address] [id number] [address] [place] [address], [place] [address] Dec, [facility] [address] [id number] [address] [place] [address], [place] [address] Dec, [facility] [address] [id number] [address] [place] [address], [place] [address] Nov, [facility] [address] [id number] [address] [place] [address], [place] [address] Nov, [facility] [address] [id number] [address] [place] [address], [place] [address] Nov, [facility] [address] [id number] [address] [place] [address], [place] [address] Oct, [facility] [address] [id number] [address] [place] [address], [place] [address] Oct, [facility] [address] [id number] [address] [place] [address], [place] [address] Oct, [facility] [address] [id number] [address] [place] [address], [place] [address] Oct, [facility] [address] [id number] [address] [place] [address], [place] [address] September, [facility] [address] [id number] [address] [place] [address], [place] [address] September, [facility] [address] [id number] [address] [place] [address], [place] [address] 30 Aug, 2011 [facility] [address] [id number] [address] [place] [address], [place] [address] Aug, [facility] [address] [id number] [address] [place] [address], [place] [address] Aug, [facility] [address] [id number] [address] [place] [address], [place] [id number] Aug, [facility] [address] [id number] [address] [place] [address], [place] [phone] Aug, [facility] [address] [id number] [address] [place] [address], [place] [address] Aug, [facility] [address] [id number] [address] [place] [address], [place] [address] Aug, [facility] [address] [id number] [address] [place] [address], [place] [id number] Jul, [facility] [address] [id number] [address] [place] [address], [place] [address] Jul, [facility] [address] [id number] [address] [place] [address], [place] [address] 14 Jul, 2011 [facility] [address] [id number] [address] [place] [address] May, [facility] [address] [id number] [address] [place] [id number] May, [facility] [address] [id number] [address] [place] [id number] May, [facility] [address] [id number] [address] [place] [id number] Apr, [facility] [address] [id number] [address] [place] [id number] Apr, [facility] [address] [id number] [address] [place] [id number] Mar, [facility] [address] [id number] [address] [place] [id number] Mar, [facility] [address] [id number] [address] [place] [id number] Mar, [facility] [address] [id number] [address] [place] [id number] Mar, [facility] [address] [id number] [address] [place] [id number] Mar, [facility] [address] [id number] [address] [place] [id number] Mar, [facility] [address] [id number] [address] [place] [id number] Feb, [facility] [address] [id number] [address] [place] [id number] Feb, [facility] [address] [id number] [address] [place] [id number] Feb, IMMUNIZATIONS No Known Immunizations SOCIAL HISTORY [...] infections x 3 2016 Hospitalization History [facility] - right big t oe removed 2019
--- OUTSIDE RECORDS SUMMARY | 2020-01-03 08:15 | XMS REPORT ---
Author Author Tra SILVERIO Organization [facility] Address [address] [place] [address] Care Team Providers Care Lead Care Manager Name Role Phone FERNY SILVERIO Unavailable PROBLEMS Type Condition ICD9-CM Code [id number] Code Onset Dates Condition S tatus SNOMED Code Problem Hypertension I10 Active 3785145 3 Problem Hypoxia R09.02 Active 464103543 Problem COPD (chronic obstructive pulmonary disease) J44.9 Active 32233012 Problem Lumbar radiculopathy, chronic M54.16 Active 010741319 Problem skilled nursing current use of insulin Z79.4 Active 103792142 Problem Recurrent major depressive disorder, in full remission F33.42 Active 976569716 Problem Hyperlipidemia, unspecified E78.5 Ac tive 78453057 Problem PAD (peripheral artery disease) I73.9 Active 850511102 Problem Type 2 diabetes mellitus with other specified complication E11.69 Active 151515280545 Problem Anxiety F41.9 Active 00539189 Problem Type 2 diabetes mellitus wit h diabetic peripheral angiopathy without gangrene E11.51 Active 567094329 Problem ED (erectile dysfunction) of organic origin N52.9 Active 481669685 Problem Arthritis M19.90 Active 5954450 Problem Morbid (severe) obesity due to excess calories E66 .01 Active 264468489 ALLERGIES No Information ENCOUNTERS Encounter Location Date Diagnosis [facility] [address] [facility] [id number] [address] [place] [address] September, Back pain M54.9 and Lumbar r adiculopathy, chronic M54.[address] [id number] [place] [address] September, Anxiety F41.9 [facility] [address] [id number] [place] [address] Aug, [facility] [address] [facility] [id number] [address] [place] [id number] 24 Aug, 2019 Back pain M54.9 and Lumbar r adiculopathy, chronic M54.16 [facility] [address] [id number] [address] [place] [id number] 10 Aug, 2019 Anxiety F41.9 ; Back pain M5 4.9 and Lumbar radiculopathy, chronic M54.16 [facility] [address] [id number] [address] [place] [address] 09 Aug, 2019 Lumbar radiculopathy, chroni c M54.16 ; Anxiety F41.9 ; Type 2 diabetes mellitus with other specified complication E11.69 and Hypertension I10 [facility] [address] [id number] [address] [place] [address] 30 Jul, 2019 [facility] [address] [id number] [address] [place] [id number] 27 Jul, 2019 Lumbar radiculopathy, chroni c M54.16 ; Back pain M54.9 and Anxiety F41.9 [facility] [address] [id number] [address] [place] [phone] 23 Jul, 2019 [facility] [address] [id number] [address] [place] [phone] 13 Jul, 2019 Anxiety F41.9 [facility] [address] [id number] [address] [place] [address] Jul, Anxiety F41.9 [facility] [address] [id number] [address] [place] [phone] Jul, Back pain M54.9 [facility] [address] [id number] [address] [place] [address] Jul, Back pain M54.9 [facility] [address] [id number] [address] [place] [phone] 28 Jul, 2019 Lumbar radiculopathy, chroni c M54.16 [facility] [address] [id number] [address] [place] [address] 28 Jul, 2019 Back pain M54.9 [facility] [address] [id number] [address] [place] [id number] 07 Jul, 2019 Encounter for Medicare sam [...] diabetes mellitus with other specified complication E11.69 [place] [address] [id number] [address] [place] [address] 03 Jul, 2019 Back pain M54.9 [place] [address] [id number] [address] [place] [address] Jul, Anxiety F41.9 [place] [address] [id number] [address] [place] [phone] May, [place] [address] [id number] [address] [place] [address] May, Lumbar radiculopathy, chroni c M54.16 [place] [address] [id number] [address] [place] [address] May, Back pain M54.9 [place] [address] [id number] [address] [place] [address] May, [place] [address] [id number] [address] [place] [id number] May, Back pain M54.9 and Anxiety F41.9 [place] [address] [id number] [address] [place] [address] May, [place] [address] [id number] [address] [place] [address] May, Type 2 diabetes mellitus wit h diabetic peripheral angiopathy without gangrene E11.51 ; Arthritis M19.90 ; ED (erectile dysfunction) of organic origin N52.9 ; Morbid (severe) obesity due to excess calories E66.01 and Lumbar radiculopathy, chronic M54.16 [facility] [address] [id number] [address] [place] [address] May, Diabetes E11.9 [facility] [address] [id number] [address] [place] [address] Apr, [facility] [address] [id number] [address] [place] [address] Apr, Back pain M54.9 [facility] [address] [facility] [id number] [address] [place] [address] Apr, [facility] [address] [facility] [id number] [address] [place] [address] Apr, Anxiety F41.9 [facility] [address] [facility] [id number] [address] [place] [address] Apr, Back pain M54.9 and Lumbar r adiculopathy, chronic M54.16 [facility] [address] [facility] [id number] [address] [place] [address] Apr, Back pain M54.9 ; Anxiety F4 1.9 and Lumbar radiculopathy, chronic M54.16 [facility] [address] [facility] [id number] [address] [place] [phone] Mar, [facility] [address] [id number] [address] [place] [address] Mar, [facility] [address] [facility] [id number] [address] [place] [address] Mar, Back pain M54.9 [facility] [address] [facility] [id number] [address] [place] [address] Mar, [facility] [address] [place] [id number] [address] [place] [address] Feb, Type 2 diabetes mellitus wit h diabetic peripheral angiopathy without gangrene E11.51 ; Lumbar radiculopathy, chronic M54.16 ; ED (erectile dysfunction) of organic origin N52.9 ; Encounter for immunization Z23 ; COPD (chronic obstructive pulmonary disease) J44.9 and Anxiety F41.9 [facility] [address] [id number] [address] [place] [address] Feb, Back pain M54.9 [facility] [address] [id number] [address] [place] [phone] Feb, [facility] [address] [id number] [address] [place] [address] Feb, [facility] [address] [id number] [address] [place] [address] Feb, [facility] [address] [id number] [address] [place] [address] Feb, Back pain M54.9 [facility] [address] [id number] [address] [place] [address] Feb, [facility] [address] [id number] [address] [place] [address] Jan, Anxiety F41.9 [facility] [address] [id number] [address] [place] [address] Jan, Anxiety F41.9 [facility] [address] [id number] [address] [place] [phone] Jan, [facility] [address] [id number] [address] [place] [address] Jan, [facility] [address] [id number] [address] [place] [address] Jan, Back pain M54.9 [facility] [address] [id number] [address] [place] [address] Jan, [facility] [address] [id number] [address] [place] [address] Dec, Acute non-recurrent frontal sinusitis J01.10 [facility] [address] [id number] [address] [place] [address] Dec, Acute non-recurrent frontal sinusitis J01.10 [facility] [address] [id number] [address] [place] [address] Dec, Type 2 diabetes mellitus wit h diabetic peripheral angiopathy without gangrene E11.51 ; Lumbar radiculopathy, chronic M54.16 ; Recurrent major depressive disorder, in full remission F33.42 and Anxiety F41.9 [facility] [address] [id number] [address] [place] [address] Dec, [facility] [address] [id number] [address] [place] [address] Nov, Anxiety F41.9 [facility] [address] [id number] [address] [place] [address] Nov, [facility] [address] [id number] [address] [place] [address] Nov, Back pain M54.9 [facility] [address] [id number] [address] [place] [address] Nov, [facility] [address] [id number] [address] [place] [address] Nov, Back pain M54.9 [facility] [address] [id number] [address] [place] [address] Nov, Anxiety F41.9 [facility] [address] [id number] [address] [place] [address] Nov, [facility] [address] [id number] [address] [place] [address] Oct, Back pain M54.9 [facility] [address] [id number] [address] [place] [address] Oct, [facility] [address] [id number] [address] [place] [phone] Oct, [facility] [address] [id number] [address] [place] [address] Oct, [facility] [address] [id number] [address] [place] [address] September, Back pain M54.9 [facility] [address] [id number] [address] [place] [address] September, [facility] [address] [id number] [address] [place] [address] September, [facility] [address] [id number] [address] [place] [address] September, [facility] [address] [id number] [address] [place] [phone] Aug, Back pain M54.9 [facility] [address] [id number] [address] [place] [address] Aug, Anxiety F41.9 [facility] [address] [id number] [address] [place] [address] Aug, [facility] [address] [id number] [address] [place] [address] Aug, Pressure ulcer of other site , stage 3 L89.893 and COPD (chronic obstructive pulmonary disease) J44.9 [facility] [address] [id number] [address] [place] [address] Aug, History of smoking Z87.891 [facility] [address] [id number] [address] [place] [address] Jul, Type 2 diabetes mellitus wit h diabetic peripheral angiopathy without gangrene E11.51 [facility] [address] [id number] [address] [place] [address] Jul, Back pain M54.9 [facility] [address] [id number] [address] [place] [phone] 19 Jul, 2018 Anxiety F41.9 [facility] [address] [id number] [address] [place] [phone] 18 Jul, 2018 [facility] [address] [id number] [address] [place] [phone] 13 Jul, 2018 Back pain M54.9 [facility] [address] [id number] [address] [place] [address] 12 Jul, 2018 Back pain M54.9 [facility] [address] [id number] [address] [place] [phone] 11 Jul, 2018 Lumbar radiculopathy, chroni c M54.16 ; Hypertension I10 and Type 2 diabetes mellitus with diabetic peripheral angiopathy without gangrene E11.51 [facility] [address] [id number] [address] [place] [address] Jul, Back pain M54.9 [facility] [address] [id number] [address] [place] [address] Jul, Back pain M54.9 and Anxiety F41.9 [facility] [address] [id number] [address] [place] [address] Jul, [facility] [address] [id number] [address] [place] [address] May, Back pain M54.9 and Anxiety F41.9 [facility] [address] [id number] [address] [place] [address] May, [facility] [address] [id number] [address] [place] [address] Apr, Radiculopathy of lumbar rhiannon on M54.16 ; Back pain M54.9 and Anxiety F41.9 [facility] [address] [id number] [address] [place] [address] Apr, Diabetes E11.9 ; Muscle spas m M62.838 and Lumbar radiculopathy, chronic M54.16 [facility] [address] [id number] [address] [place] [address] Apr, [facility] [address] [id number] [address] [place] [phone] Apr, [facility] [address] [id number] [address] [place] [address] Mar, Back pain M54.9 and Anxiety F41.9 [facility] [address] [id number] [address] [place] [address] Mar, [facility] [address] [id number] [address] [place] [address] Mar, [facility] [address] [id number] [address] [place] [address] Mar, [facility] [address] [id number] [address] [place] [address] Mar, Encounter for immunization Z 23 [facility] [address] [id number] [address] [place] [address] Feb, Back pain M54.9 and Anxiety F41.9 [facility] [address] [id number] [address] [place] [phone] Feb, Back pain M54.9 and Anxiety F41.9 [facility] [address] [id number] [address] [place] [address] Jan, Back pain M54.9 and Anxiety F41.9 [facility] [address] [id number] [address] [place] [address] Jan, [facility] [address] [id number] [address] [place] [address] Dec, [facility] [address] [id number] [address] [place] [address] Dec, Back pain M54.9 and Anxiety F41.9 [facility] [address] [id number] [address] [place] [address] 13 Dec, 2017 Diabetes E11.9 ; Type 2 diab etes mellitus with diabetic peripheral angiopathy without gangrene E11.51 ; Lumbar radiculopathy, chronic M54.16 ; COPD (chronic obstructive pulmonary disease) J44.9 and Anxiety F41.9 [facility] [address] [id number] [address] [place] [address] Dec, Back pain M54.9 and Anxiety F41.9 [place] [address] [id number] [address] [place] [address] Nov, Back pain M54.9 and Anxiety F41.9 [place] [address] [id number] [address] [place] [address] Oct, [place] [address] [id number] [address] [place] [address] Oct, Back pain M54.9 and Anxiety F41.9 [place] [address] [id number] [address] [place] [address] September, Anxiety F41.9 and Back pain M54.9 [place] [address] [id number] [address] [place] [address] September, Diabetes E11.9 ; Hypertensio n I10 ; COPD (chronic obstructive pulmonary disease) J44.9 and Lumbar radiculopathy, chronic M54.16 [place] [address] [id number] [address] [place] [address] September, Anxiety F41.9 [facility] [address] [id number] [address] [place] [address] Aug, [facility] [address] [id number] [address] [place] [address] Aug, [facility] [address] [id number] [address] [place] [address] Aug, Anxiety F41.9 and Back pain M54.9 [facility] [address] [id number] [address] [place] [address] Aug, Medicare annual wellness vis it, initial Z00.00 ; COPD (chronic obstructive pulmonary disease) J44.9 ; PAD (peripheral artery disease) I73.9 ; Insulin long-term use Z79.4 ; Hypertension I10 ; Anxiety F41.9 ; Recurrent major depressive disorder, in full remission F33.42 ; Pressure ulcer of other site, stage 3 L89.893 ; Type 2 diabetes mellitus with diabetic peripheral angiopathy without gangrene E11.51 and skilled nursing current use of insulin Z79.4 [facility] [address] [id number] [address] [place] [address] Jul, Back pain M54.9 [facility] [address] [id number] [address] [place] [address] Jul, [facility] [address] [id number] [address] [place] [address] Jul, Anxiety F41.9 and Back pain M54.9 [facility] [address] [id number] [address] [place] [address] Jul, Diabetes E11.9 [facility] [address] [id number] [address] [place] [address] May, [facility] [address] [id number] [address] [place] [address] May, Diabetes E11.9 ; Anxiety F41 .9 ; Back pain M54.9 and COPD (chronic obstructive pulmonary disease) J44.9 [facility] [address] [id number] [address] [place] [address] May, Back pain M54.9 [facility] [address] [id number] [address] [place] [address] May, [facility] [address] [id number] [address] [place] [address] Apr, Back pain M54.9 [facility] [address] [id number] [address] [place] [address] 30 Mar, 2017 Back pain M54.9 [facility] [address] [id number] [address] [place] [address] 20 Mar, 2017 [facility] [address] [id number] [address] [place] [address] 16 Mar, 2017 [facility] [address] [id number] [address] [place] [address] 14 Mar, 2017 Radiculopathy of lumbar rhiannon on M54.16 [facility] [address] [id number] [address] [place] [address] 13 Mar, 2017 [facility] [address] [id number] [address] [place] [address] 07 Mar, 2017 Encounter for immunization Z 23 and Lumbar radiculopathy, chronic M54.16 [facility] [address] [id number] [address] [place] [address] Mar, Back pain M54.9 and Anxiety F41.9 [facility] [address] [id number] [address] [place] [phone] 10 Feb, 2017 Acute bilateral low back boy n with left-sided sciatica M54.42 and Acute bilateral low back pain with right-sided sciatica M54.41 [facility] [address] [id number] [address] [place] [address] Feb, [facility] [address] [id number] [address] [place] [address] Feb, Back pain M54.9 [facility] [address] [id number] [address] [place] [address] 05 Jan, 2017 Back pain M54.9 and Anxiety F41.9 [facility] [address] [id number] [address] [place] [id number] 05 Jan, 2017 Diabetes E11.9 [facility] [address] [id number] [address] [place] [phone] 14 Dec, 2016 Diabetes E11.9 ; Back pain M 54.9 ; Anxiety F41.9 and Insulin long- term use Z79.4 [facility] [address] [id number] [address] [place] [address] 09 Dec, 2016 Anxiety F41.9 [facility] [address] [id number] [address] [place] [address] Dec, Back pain M54.9 [facility] [address] [id number] [address] [place] [address] Nov, Back pain M54.9 [facility] [address] [id number] [address] [place] [address] Oct, Back pain M54.9 and Anxiety F41.9 [facility] [address] [facility] [id number] [address] [place] [address] September, Back pain M54.9 [facility] [address] [id number] [address] [place] [address] September, Back pain M54.9 and Anxiety F41.9 [facility] [address] [facility] [id number] [address] [place] [address] Aug, Diabetes E11.9 ; Anxiety F41 .9 ; Back pain M54.9 and PAD (peripheral artery disease) I73.9 [facility] [address] [id number] [address] [place] [address] Aug, Anxiety F41.9 [facility] [address] [id number] [address] [place] [address] 14 Aug, 2016 Back pain M54.9 [facility] [address] [facility] [id number] [address] [place] [phone] 23 Jul, 2016 Back pain M54.9 [facility] [address] [facility] [id number] [address] [place] [phone] Jul, Back pain M54.9 [facility] [address] [id number] [address] [place] [address] 23 Jul, 2016 Back pain M54.9 [facility] [address] [id number] [address] [place] [address] 16 Jul, 2016 Dorsalgia M54.9 [facility] [address] [id number] [address] [place] [phone] 14 Jul, 2016 [facility] [address] [facility] [id number] [address] [place] [address] May, Back pain M54.9 [facility] [address] [id number] [address] [place] [id number] May, Diabetes E11.9 ; Anxiety F41 .9 ; Port catheter in place Z95.828 ; Encounter for immunization Z23 and Insulin long-term use Z79.4 [facility] [address] [id number] [address] [place] [id number] Apr, Back pain M54.9 [facility] [address] [id number] [address] [place] [phone] Apr, Back pain M54.9 [facility] [address] [facility] [id number] [address] [place] [phone] Apr, [facility] [address] [id number] [address] [place] [phone] Apr, Back pain M54.9 [facility] [address] [id number] [address] [place] [phone] Mar, COPD (chronic obstructive pu lmonary disease) J44.9 [facility] [address] [id number] [address] [place] [id number] Feb, [facility] [address] [id number] [address] [place] [id number] 30 Jan, 2016 [facility] [address] [facility] [id number] [address] [place] [id number] Jan, [facility] [address] [id number] [address] [place] [id number] Jan, [facility] [address] [id number] [address] [place] [id number] Jan, [facility] [address] [id number] [address] [place] [phone] Dec, Diabetes E11.9 ; Hypoxia R09 .02 and Back pain M54.9 [facility] [address] [id number] [address] [place] [id number] Dec, [facility] [address] [address] [id number] [address] [place] [address] Nov, [facility] [address] [id number] [address] [place] [address] Oct, Anxiety F41.9 [facility] [address] [id number] [address] [place] [address] Oct, Back pain M54.9 [facility] [address] [id number] [address] [place] [address] September, Back pain M54.9 [facility] [address] [id number] [address] [place] [address] September, Diabetes E11.9 [facility] [address] [id number] [address] [place] [address] September, [facility] [address] [id number] [address] [place] [address] September, Diabetes E11.9 ; Insulin sarai g-term use Z79.4 and Back pain M54.9 [facility] [address] [id number] [address] [place] [address] Aug, Back pain M54.9 [facility] [address] [facility] [id number] [address] [place] [address] Aug, Back pain M54.9 ; Anxiety F4 1.9 and Arthropathy, unspecified M12.9 [facility] [address] [facility] [id number] [address] [place] [address] Jul, Back pain M54.9 [facility] [address] [facility] [id number] [address] [place] [address] Jul, Anxiety F41.9 [facility] [address] [facility] [id number] [address] [place] [address] Jul, Back pain M54.9 [facility] [address] [facility] [id number] [address] [place] [address] Jul, [facility] [address] [facility] [id number] [address] [place] [address] Jul, [facility] [address] [facility] [id number] [address] [place] [address] May, Back pain M54.9 ; Diabetes E 11.9 ; Insulin long-term use Z79.4 ; COPD (chronic obstructive pulmonary disease) J44.9 and Hypertension I10 [facility] [address] [facility] [id number] [address] [place] [address] May, Chronic pain G89.29 [facility] [address] [facility] [id number] [address] [place] [address] Apr, [facility] [address] [facility] [id number] [address] [place] [address] Apr, [facility] [address] [facility] [id number] [address] [place] [address] Mar, [facility] [address] [facility] [id number] [address] [place] [address] Mar, Encounter for immunization Z 23 and Diabetes E11.9 [facility] [address] [facility] [id number] [address] [place] [address] Feb, [facility] [address] [facility] [id number] [address] [place] [address] Feb, [facility] [address] [id number] [address] [place] [address] 23 Jan, 2015 [facility] [address] [id number] [address] [place] [address] Jan, [facility] [address] [id number] [address] [place] [address] Dec, [facility] [address] [id number] [address] [place] [address] Dec, [facility] [address] [id number] [address] [place] [address] Dec, Unspecified arthropathy, sit e unspecified 716.90 and Diabetes mellitus type 2, uncontrolled 250.02 [facility] [address] [id number] [address] [place] [address], [place] [address] Dec, [facility] [address] [id number] [address] [place] [address] Nov, [facility] [address] [id number] [address] [place] [address] Oct, [facility] [address] [id number] [address] [place] [address] September, [facility] [address] [id number] [address] [place] [address] September, [facility] [address] [id number] [address] [place] [address] September, [facility] [address] [id number] [address] [place] [address] September, [facility] [address] [id number] [address] [place] [address] Aug, [facility] [address] [id number] [address] [place] [address] Aug, [facility] [address] [id number] [address] [place] [address] Jul, [facility] [address] [id number] [address] [place] [address], [place] [address] 18 Jul, 2014 [facility] [address] [id number] [address] [place] [address], [place] [address] 16 Jul, 2014 [facility] [address] [id number] [address] [place] [address], [place] [address] 16 Jul, 2014 [facility] [address] [id number] [address] [place] [address], [place] [address] 16 Jul, 2014 [facility] [address] [id number] [address] [place] [address], [place] [address] 16 Jul, 2014 [facility] [address] [id number] [address] [place] [address], [place] [address] 16 Jul, 2014 [facility] [address] [id number] [address] [place] [address], [place] [address] 16 Jul, 2014 [facility] [address] [id number] [address] [place] [address], [place] [address] 16 Jul, 2014 [facility] [address] [id number] [address] [place] [address], [place] [address] 13 Jul, 2014 [facility] [address] [id number] [address] [place] [address], [place] [address] 13 Jul, 2014 [facility] [address] [id number] [address] [place] [address], [place] [address] 09 Jul, 2014 [facility] [address] [id number] [address] [place] [address], [place] [address] 09 Jul, 2014 [facility] [address] [id number] [address] [place] [address], [place] [address] 17 Jul, 2014 [facility] [address] [id number] [address] [place] [address], [place] [address] 17 Jul, 2014 [facility] [address] [id number] [address] [place] [address], [place] [address] 16 Jul, 2014 [facility] [address] [id number] [address] [place] [address], [place] [address] 16 Jul, 2014 [facility] [address] [id number] [address] [place] [address], [place] [address] 16 Jul, 2014 [facility] [address] [id number] [address] [place] [address], [place] [address] 16 Jul, 2014 [facility] [address] [id number] [address] [place] [address], [place] [address] 16 Jul, 2014 [facility] [address] [id number] [address] [place] [address], [place] [address] 16 Jul, 2014 [facility] [address] [id number] [address] [place] [address], [place] [address] 16 Jul, 2014 [facility] [address] [id number] [address] [place] [address], [place] [address] 16 Jul, 2014 [facility] [address] [id number] [address] [place] [address], [place] [address] 16 Jul, 2014 [facility] [address] [id number] [address] [place] [address], [place] [address] 16 Jul, 2014 [facility] [address] [id number] [address] [place] [address], [place] [address] 16 Jul, 2014 [facility] [address] [id number] [address] [place] [address], [place] [address] 16 Jul, 2014 [facility] [address] [id number] [address] [place] [address], [place] [address] Jul, 2014 [facility] [address] [id number] [address] [place] [address], [place] [address] 16 Jul, 2014 [facility] [address] [id number] [address] [place] [address], [place] [address] May, [facility] [address] [id number] [address] [place] [address] May, [facility] [address] [id number] [address] [place] [address] May, [facility] [address] [id number] [address] [place] [address], [place] [address] May, [facility] [address] [id number] [address] [place] [address], [place] [address] May, [facility] [address] [id number] [address] [place] [address], [place] [address] May, [facility] [address] [id number] [address] [place] [address], [place] [address] May, [facility] [address] [id number] [address] [place] [address], [place] [address] May, [facility] [address] [id number] [address] [place] [address], [place] [address] May, [facility] [address] [id number] [address] [place] [address], [place] [address] May, [facility] [address] [id number] [address] [place] [address], [place] [address] Apr, [facility] [address] [id number] [address] [place] [address], [place] [address] Apr, [facility] [address] [id number] [address] [place] [address], [place] [address] Apr, [facility] [address] [id number] [address] [place] [address], [place] [address] Apr, [facility] [address] [id number] [address] [place] [address], [place] [address] Apr, [facility] [address] [id number] [address] [place] [address], [place] [address] Apr, [facility] [address] [id number] [address] [place] [address], [place] [address] Mar, [facility] [address] [id number] [address] [place] [address], [place] [address] Mar, [facility] [address] [id number] [address] [place] [address], [place] [address] Mar, [facility] [address] [id number] [address] [place] [address], [place] [address] Mar, [facility] [address] [id number] [address] [place] [address], [place] [address] Mar, [facility] [address] [id number] [address] [place] [address], [place] [address] Mar, [facility] [address] [id number] [address] [place] [address], [place] [address] Mar, [facility] [address] [id number] [address] [place] [address], [place] [address] Mar, [facility] [address] [id number] [address] [place] [address], [place] [address] Mar, [facility] [address] [id number] [address] [place] [address], [place] [address] Mar, [facility] [address] [id number] [address] [place] [address], [place] [address] Mar, [facility] [address] [id number] [address] [place] [address], [place] [address] Feb, [facility] [address] [id number] [address] [place] [address], [place] [address] 30 Feb, 2014 [facility] [address] [id number] [address] [place] [address], [place] [address] 15 Feb, 2014 [facility] [address] [id number] [address] [place] [address], [place] [address] 15 Feb, 2014 [facility] [address] [id number] [address] [place] [address], [place] [address] Feb, [facility] [address] [id number] [address] [place] [address], [place] [address] Feb, [facility] [address] [id number] [address] [place] [address], [place] [address] Feb, [facility] [address] [id number] [address] [place] [address], [place] [address] Feb, [facility] [address] [id number] [address] [place] [address], [place] [address] Feb, [facility] [address] [id number] [address] [place] [address], [place] [address] Feb, [facility] [address] [id number] [address] [place] [address], [place] [address] Jan, [facility] [address] [id number] [address] [place] [address], [place] [address] Jan, [facility] [address] [id number] [address] [place] [address], [place] [address] Jan, [facility] [address] [id number] [address] [place] [address], [place] [address] Jan, [facility] [address] [id number] [address] [place] [address], [place] [address] Jan, [facility] [address] [id number] [address] [place] [address], [place] [address] Jan, [facility] [address] [id number] [address] [place] [address], [place] [address] Jan, [facility] [address] [id number] [address] [place] [address], [place] [address] Dec, [facility] [address] [id number] [address] [place] [address], [place] [address] Dec, [facility] [address] [id number] [address] [place] [address], [place] [address] Dec, [facility] [address] [id number] [address] [place] [address], [place] [address] Dec, [facility] [address] [id number] [address] [place] [address], [place] [address] Dec, [facility] [address] [id number] [address] [place] [address], [place] [address] Dec, [facility] [address] [id number] [facility] [place] [address] Dec, [facility] [address] [id number] [address] [place] [address], [place] [address] Dec, [facility] [address] [id number] [address] [place] [address], [place] [address] Oct, [facility] [address] [id number] [address] [place] [address], [place] [address] Oct, [facility] [address] [id number] [address] [place] [address], [place] [address] September, [facility] [address] [id number] [address] [place] [address], [place] [address] September, [facility] [address] [id number] [address] [place] [address], [place] [address] September, [facility] [address] [id number] [address] [place] [address], [place] [address] September, [facility] [address] [id number] [address] [place] [address], [place] [address] September, [facility] [address] [id number] [address] [place] [address], [place] [address] September, [facility] [address] [id number] [address] [place] [address], [place] [address] September, [facility] [address] [id number] [address] [place] [address], [place] [address] Aug, [facility] [address] [id number] [address] [place] [address], [place] [address] Aug, [facility] [address] [id number] [address] [place] [address], [place] [address] Jul, [facility] [address] [id number] [address] [place] [address], [place] [address] Jul, [facility] [address] [id number] [address] [place] [address], [place] [address] 17 Jul, 2013 [facility] [address] [id number] [address] [place] [address], [place] [address] 17 Jul, 2013 [facility] [address] [id number] [address] [place] [address], [place] [address] 14 Jul, 2013 [facility] [address] [id number] [address] [place] [address], [place] [address] 14 Jul, 2013 [facility] [address] [id number] [address] [place] [address], [place] [address] Jul, [facility] [address] [id number] [address] [place] [address], [place] [address] Jul, [facility] [address] [id number] [address] [place] [address], [place] [address] 15 May, 2013 [facility] [address] [id number] [address] [place] [address], [place] [address] 15 May, 2013 [facility] [address] [id number] [address] [place] [address], [place] [address] May, [facility] [address] [id number] [address] [place] [address], [place] [address] May, [facility] [address] [id number] [address] [place] [address], [place] [address] Apr, [facility] [address] [id number] [address] [place] [address], [place] [address] Mar, [facility] [address] [id number] [address] [place] [address], [place] [address] Mar, [facility] [address] [id number] [address] [place] [address], [place] [address] Mar, [facility] [address] [id number] [address] [place] [address], [place] [address] Mar, [facility] [address] [id number] [address] [place] [address], [place] [address] Mar, [facility] [address] [id number] [address] [place] [address], [place] [address] Mar, [facility] [address] [id number] [address] [place] [address], [place] [address] Mar, [facility] [address] [id number] [address] [place] [address], [place] [address] Mar, [facility] [address] [id number] [address] [place] [address] Mar, [facility] [address] [id number] [address] [place] [address], [place] [address] Mar, [facility] [address] [id number] [address] [place] [address], [place] [address] Mar, [facility] [address] [id number] [address] [place] [address], [place] [address] Mar, [facility] [address] [id number] [address] [place] [address], [place] [address] Feb, [facility] [address] [id number] [address] [place] [address], [place] [address] Feb, [facility] [address] [id number] [address] [place] [address], [place] [address] Feb, [facility] [address] [id number] [address] [place] [address] Feb, [facility] [address] [id number] [address] [place] [address] Feb, [facility] [address] [id number] [address] [place] [address], [place] [address] Jan, [facility] [address] [id number] [address] [place] [address], [place] [address] Dec, [facility] [address] [id number] [address] [place] [address], [place] [address] Dec, [facility] [address] [id number] [address] [place] [address], [place] [address] Dec, [facility] [address] [id number] [address] [place] [address], [place] [address] Nov, [facility] [address] [id number] [address] [place] [address], [place] [address] Nov, [facility] [address] [id number] [address] [place] [address], [place] [address] Nov, [facility] [address] [id number] [address] [place] [address], [place] [address] Oct, [facility] [address] [id number] [address] [place] [address], [place] [address] Oct, [facility] [address] [id number] [address] [place] [address], [place] [address] Oct, [facility] [address] [id number] [address] [place] [address], [place] [address] September, [facility] [address] [id number] [address] [place] [address], [place] [address] September, [facility] [address] [id number] [address] [place] [address], [place] [address] September, [facility] [address] [id number] [address] [place] [address], [place] [address] September, [facility] [address] [id number] [address] [place] [address], [place] [address] September, [facility] [address] [id number] [address] [place] [address], [place] [address] Aug, [facility] [address] [id number] [address] [place] [address], [place] [address] Aug, [facility] [address] [id number] [address] [place] [address], [place] [address] Aug, [facility] [address] [id number] [address] [place] [address], [place] [address] Jul, [facility] [address] [id number] [address] [place] [address], [place] [address] Jul, [facility] [address] [id number] [address] [place] [address], [place] [address] Jul, [facility] [address] [id number] [address] [place] [address], [place] [address] Jul, [facility] [address] [id number] [address] [place] [address], [place] [address] Jul, [facility] [address] [id number] [address] [place] [address], [place] [address] Jul, [facility] [address] [id number] [address] [place] [address], [place] [address] Jul, [facility] [address] [id number] [address] [place] [address], [place] [address] May, [facility] [address] [id number] [address] [place] [address], [place] [address] May, [facility] [address] [id number] [address] [place] [address], [place] [address] May, [facility] [address] [id number] [address] [place] [address], [place] [address] Apr, [facility] [address] [id number] [address] [place] [address], [place] [address] Apr, [facility] [address] [id number] [address] [place] [address], [place] [address] Apr, [facility] [address] [id number] [address] [place] [address], [place] [address] Apr, [facility] [address] [id number] [address] [place] [address], [place] [address] Apr, [facility] [address] [id number] [address] [place] [address], [place] [address] 29 Mar, 2012 [facility] [address] [id number] [address] [place] [address], [place] [address] Mar, [facility] [address] [id number] [address] [place] [address], [place] [address] Mar, [facility] [address] [id number] [address] [place] [address], [place] [address] Mar, [facility] [address] [id number] [address] [place] [address], [place] [address] Feb, [facility] [address] [id number] [address] [place] [address], [place] [address] Feb, [facility] [address] [id number] [address] [place] [address], [place] [address] Feb, [facility] [address] [id number] [address] [place] [address], [place] [address] Feb, [facility] [address] [id number] [address] [place] [address], [place] [address] Feb, [facility] [address] [id number] [address] [place] [address], [place] [address] Jan, [facility] [address] [id number] [address] [place] [address], [place] [address] Dec, [facility] [address] [id number] [address] [place] [address], [place] [address] Dec, [facility] [address] [id number] [address] [place] [address], [place] [address] Dec, [facility] [address] [id number] [address] [place] [address], [place] [address] Nov, [facility] [address] [id number] [address] [place] [address], [place] [address] Nov, [facility] [address] [id number] [address] [place] [address], [place] [address] Nov, [facility] [address] [id number] [address] [place] [address], [place] [address] Oct, [facility] [address] [id number] [address] [place] [address], [place] [address] Oct, [facility] [address] [id number] [address] [place] [address], [place] [address] Oct, [facility] [address] [id number] [address] [place] [address], [place] [address] Oct, [facility] [address] [id number] [address] [place] [address], [place] [address] September, [facility] [address] [id number] [address] [place] [address], [place] [address] September, [facility] [address] [id number] [address] [place] [address], [place] [address] 30 Aug, 2011 [facility] [address] [id number] [address] [place] [address], [place] [address] Aug, [facility] [address] [id number] [address] [place] [address], [place] [address] Aug, [facility] [address] [id number] [address] [place] [address], [place] [address] Aug, [facility] [address] [id number] [address] [place] [address], [place] [address] Aug, [facility] [address] [id number] [address] [place] [address], [place] [address] Aug, [facility] [address] [id number] [address] [place] [address], [place] [address] Aug, [facility] [address] [id number] [address] [place] [address], [place] [address] Jul, [facility] [address] [id number] [address] [place] [address], [place] [address] Jul, [facility] [address] [id number] [address] [place] [address], [place] [address] 14 Jul, 2011 [facility] [address] [id number] [address] [address] May, [facility] [address] [id number] [address] [place] [address] May, [facility] [address] [id number] [address] [place] [address] May, [facility] [address] [id number] [address] [place] [address] Apr, [facility] [address] [id number] [address] [place] [address] Apr, [facility] [address] [id number] [address] [place] [address] Mar, [facility] [address] [id number] [address] [place] [id number] Mar, [facility] [address] [id number] [address] [place] [address] Mar, [facility] [address] [id number] [address] [place] [address] Mar, [facility] [address] [id number] [address] [place] [address] Mar, [facility] [address] [id number] [address] [place] [id number] Mar, [facility] [address] [id number] [address] [place] [address] Feb, [facility] [address] [id number] [address] [place] [id number] Feb, [facility] [address] [id number] [address] [place] [address] Feb, IMMUNIZATIONS No Known Immunizations SOCIAL HISTORY Never Assessed REASON FOR VISIT PLAN OF CARE VITAL SIGNS Height 72 in 2013-01-25 Weight 262 lbs 2013-01-25 Temperature 98 degrees Fahrenheit 2013-01-25 Heart Rate 80 bpm 2013-01-25 Respiratory Rate 22 2013-01-25 Blood pressure systolic 160 mmHg 2013-01-25 Blood pressure diastolic 80 mmHg 2013-01-25 MEDICATIONS Unknown Medications RESULTS No Results PROCEDURES [...] foot infections x 3 2016 Hospitalization History [facility] - right big t oe removed 2019
--- OUTSIDE RECORDS SUMMARY | 2020-01-03 08:15 | XMS REPORT ---
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 Name Role Phone FERNY SILVERIO Unavailable PROBLEMS Type Condition ICD9-CM Code QIB07-OJ Code Onset Dates Condition S tatus SNOMED Code Problem Hypertension I10 Active 6997214 3 Problem Hypoxia R09.02 Active 494480842 Problem COPD (chronic obstructive pulmonary disease) J44.9 Active 20448822 Problem Lumbar radiculopathy, chronic M54.16 Active 975066052 Problem FCI current use of insulin Z79.4 Active 407289554 Problem Recurrent major depressive disorder, in full remission F33.42 Active 860921607 Problem Hyperlipidemia, unspecified E78.5 Ac tive 18998036 Problem PAD (peripheral artery disease) I73.9 Active 243147631 Problem Type 2 diabetes mellitus with other specified complication E11.69 Active 740845623854 Problem Anxiety F41.9 Active 33021789 Problem Type 2 diabetes mellitus wit h diabetic peripheral angiopathy without gangrene E11.51 Active 683095257 Problem ED (erectile dysfunction) of organic origin N52.9 Active 060127337 Problem Arthritis M19.90 Active 4171816 Problem Morbid (severe) obesity due to excess calories E66 .01 Active 176166092 ALLERGIES No Information ENCOUNTERS Encounter Location Date Diagnosis [facility] [address] [facility] [id number] [address] [place] [phone] September, Back pain M54.9 and Lumbar r adiculopathy, chronic M54.[address] [id number] [place] [address] September, Anxiety F41.9 [facility] [address] [id number] [place] [address] Aug, [facility] [address] [facility] [id number] [address] [place] [phone] 24 Aug, 2019 Back pain M54.9 and Lumbar r adiculopathy, chronic M54.16 [facility] [address] [id number] [address] [place] [phone] 10 Aug, 2019 Anxiety F41.9 ; Back pain M5 4.9 and Lumbar radiculopathy, chronic M54.16 [facility] [address] [id number] [address] [place] [phone] 09 Aug, 2019 Lumbar radiculopathy, chroni c M54.16 ; Anxiety F41.9 ; Type 2 diabetes mellitus with other specified complication E11.69 and Hypertension I10 [facility] [address] [id number] [address] [place] [id number] 30 Jul, 2019 [facility] [address] [id number] [address] [place] [id number] 27 Jul, 2019 Lumbar radiculopathy, chroni c M54.16 ; Back pain M54.9 and Anxiety F41.9 [facility] [address] [id number] [address] [place] [phone] 23 Jul, 2019 [facility] [address] [id number] [address] [place] [id number] 13 Jul, 2019 Anxiety F41.9 [facility] [address] [id number] [address] [place] [phone] Jul, Anxiety F41.9 [facility] [address] [id number] [address] [place] [phone] Jul, Back pain M54.9 [facility] [address] [id number] [address] [place] [phone] Jul, Back pain M54.9 [facility] [address] [id number] [address] [place] [phone] 28 Jul, 2019 Lumbar radiculopathy, chroni c M54.16 [facility] [address] [id number] [address] [place] [id number] 28 Jul, 2019 Back pain M54.9 [facility] [address] [id number] [address] [place] [id number] 07 Jul, 2019 Encounter for Medicare sam [...] diabetes mellitus with other specified complication E11.69 [place] [address] [id number] [address] [place] [id number] 03 Jul, 2019 Back pain M54.9 [place] [address] [id number] [address] [place] [phone] Jul, Anxiety F41.9 [place] [address] [id number] [address] [place] [phone] May, [place] [address] [id number] [address] [place] [phone] May, Lumbar radiculopathy, chroni c M54.16 [place] [address] [id number] [address] [place] [phone] May, Back pain M54.9 [place] [address] [id number] [address] [place] [id number] May, [place] [address] [id number] [address] [place] [phone] May, Back pain M54.9 and Anxiety F41.9 [place] [address] [id number] [address] [place] [phone] May, [place] [address] [id number] [address] [place] [id number] May, Type 2 diabetes mellitus wit h diabetic peripheral angiopathy without gangrene E11.51 ; Arthritis M19.90 ; ED (erectile dysfunction) of organic origin N52.9 ; Morbid (severe) obesity due to excess calories E66.01 and Lumbar radiculopathy, chronic M54.16 [facility] [address] [id number] [address] [place] [id number] May, Diabetes E11.9 [facility] [address] [id number] [address] [place] [phone] Apr, [facility] [address] [id number] [address] [place] [id number] Apr, Back pain M54.9 [facility] [address] [facility] [id number] [address] [place] [id number] Apr, [facility] [address] [facility] [id number] [address] [place] [id number] Apr, Anxiety F41.9 [facility] [address] [facility] [id number] [address] [place] [phone] Apr, Back pain M54.9 and Lumbar r adiculopathy, chronic M54.16 [facility] [address] [facility] [id number] [address] [place] [phone] Apr, Back pain M54.9 ; Anxiety F4 1.9 and Lumbar radiculopathy, chronic M54.16 [facility] [address] [facility] [id number] [address] [place] [phone] Mar, [facility] [address] [id number] [address] [place] [id number] Mar, [facility] [address] [facility] [id number] [address] [place] [phone] Mar, Back pain M54.9 [facility] [address] [facility] [id number] [address] [place] [phone] Mar, [facility] [address] [place] [id number] [address] [place] [phone] Feb, Type 2 diabetes mellitus wit h diabetic peripheral angiopathy without gangrene E11.51 ; Lumbar radiculopathy, chronic M54.16 ; ED (erectile dysfunction) of organic origin N52.9 ; Encounter for immunization Z23 ; COPD (chronic obstructive pulmonary disease) J44.9 and Anxiety F41.9 [facility] [address] [id number] [address] [place] [phone] Feb, Back pain M54.9 [facility] [address] [id number] [address] [place] [id number] Feb, [facility] [address] [id number] [address] [place] [phone] Feb, [facility] [address] [id number] [address] [place] [phone] Feb, [facility] [address] [id number] [address] [place] [phone] Feb, Back pain M54.9 [facility] [address] [id number] [address] [place] [phone] Feb, [facility] [address] [id number] [address] [place] [phone] Jan, Anxiety F41.9 [facility] [address] [id number] [address] [place] [phone] Jan, Anxiety F41.9 [facility] [address] [id number] [address] [place] [phone] Jan, [facility] [address] [id number] [address] [place] [phone] Jan, [facility] [address] [id number] [address] [place] [phone] Jan, Back pain M54.9 [facility] [address] [id number] [address] [place] [phone] Jan, [facility] [address] [id number] [address] [place] [phone] Dec, Acute non-recurrent frontal sinusitis J01.10 [facility] [address] [id number] [address] [place] [phone] Dec, Acute non-recurrent frontal sinusitis J01.10 [facility] [address] [id number] [address] [place] [phone] Dec, Type 2 diabetes mellitus wit h diabetic peripheral angiopathy without gangrene E11.51 ; Lumbar radiculopathy, chronic M54.16 ; Recurrent major depressive disorder, in full remission F33.42 and Anxiety F41.9 [facility] [address] [id number] [address] [place] [phone] Dec, [facility] [address] [id number] [address] [place] [phone] Nov, Anxiety F41.9 [facility] [address] [id number] [address] [place] [phone] Nov, [facility] [address] [id number] [address] [place] [phone] Nov, Back pain M54.9 [facility] [address] [id number] [address] [place] [id number] Nov, [facility] [address] [id number] [address] [place] [phone] Nov, Back pain M54.9 [facility] [address] [id number] [address] [place] [phone] Nov, Anxiety F41.9 [facility] [address] [id number] [address] [place] [phone] Nov, [facility] [address] [id number] [address] [place] [phone] Oct, Back pain M54.9 [facility] [address] [id number] [address] [place] [phone] Oct, [facility] [address] [id number] [address] [place] [phone] Oct, [facility] [address] [id number] [address] [place] [phone] Oct, [facility] [address] [id number] [address] [place] [phone] September, Back pain M54.9 [facility] [address] [id number] [address] [place] [phone] September, [facility] [address] [id number] [address] [place] [phone] September, [facility] [address] [id number] [address] [place] [phone] September, [facility] [address] [id number] [address] [place] [phone] Aug, Back pain M54.9 [facility] [address] [id number] [address] [place] [phone] Aug, Anxiety F41.9 [facility] [address] [id number] [address] [place] [phone] Aug, [facility] [address] [id number] [address] [place] [id number] Aug, Pressure ulcer of other site , stage 3 L89.893 and COPD (chronic obstructive pulmonary disease) J44.9 [facility] [address] [id number] [address] [place] [phone] Aug, History of smoking Z87.891 [facility] [address] [id number] [address] [place] [phone] Jul, Type 2 diabetes mellitus wit h diabetic peripheral angiopathy without gangrene E11.51 [facility] [address] [id number] [address] [place] [phone] Jul, Back pain M54.9 [facility] [address] [id number] [address] [place] [id number] 19 Jul, 2018 Anxiety F41.9 [facility] [address] [id number] [address] [place] [id number] 18 Jul, 2018 [facility] [address] [id number] [address] [place] [phone] 13 Jul, 2018 Back pain M54.9 [facility] [address] [id number] [address] [place] [phone] 12 Jul, 2018 Back pain M54.9 [facility] [address] [id number] [address] [place] [id number] 11 Jul, 2018 Lumbar radiculopathy, chroni c M54.16 ; Hypertension I10 and Type 2 diabetes mellitus with diabetic peripheral angiopathy without gangrene E11.51 [facility] [address] [id number] [address] [place] [phone] Jul, Back pain M54.9 [facility] [address] [id number] [address] [place] [phone] Jul, Back pain M54.9 and Anxiety F41.9 [facility] [address] [id number] [address] [place] [phone] Jul, [facility] [address] [id number] [address] [place] [phone] May, Back pain M54.9 and Anxiety F41.9 [facility] [address] [id number] [address] [place] [phone] May, [facility] [address] [id number] [address] [place] [phone] Apr, Radiculopathy of lumbar rhiannon on M54.16 ; Back pain M54.9 and Anxiety F41.9 [facility] [address] [id number] [address] [place] [phone] Apr, Diabetes E11.9 ; Muscle spas m M62.838 and Lumbar radiculopathy, chronic M54.16 [facility] [address] [id number] [address] [place] [phone] Apr, [facility] [address] [id number] [address] [place] [phone] Apr, [facility] [address] [id number] [address] [place] [phone] Mar, Back pain M54.9 and Anxiety F41.9 [facility] [address] [id number] [address] [place] [phone] Mar, [facility] [address] [id number] [address] [place] [phone] Mar, [facility] [address] [id number] [address] [place] [phone] Mar, [facility] [address] [id number] [address] [place] [id number] Mar, Encounter for immunization Z 23 [facility] [address] [id number] [address] [place] [phone] Feb, Back pain M54.9 and Anxiety F41.9 [facility] [address] [id number] [address] [place] [phone] Feb, Back pain M54.9 and Anxiety F41.9 [facility] [address] [id number] [address] [place] [phone] Jan, Back pain M54.9 and Anxiety F41.9 [facility] [address] [id number] [address] [place] [phone] Jan, [facility] [address] [id number] [address] [place] [phone] Dec, [facility] [address] [id number] [address] [place] [phone] Dec, Back pain M54.9 and Anxiety F41.9 [facility] [address] [id number] [address] [place] [id number] 13 Dec, 2017 Diabetes E11.9 ; Type 2 diab etes mellitus with diabetic peripheral angiopathy without gangrene E11.51 ; Lumbar radiculopathy, chronic M54.16 ; COPD (chronic obstructive pulmonary disease) J44.9 and Anxiety F41.9 [facility] [address] [id number] [address] [place] [phone] Dec, Back pain M54.9 and Anxiety F41.9 [place] [address] [id number] [address] [place] [phone] Nov, Back pain M54.9 and Anxiety F41.9 [place] [address] [id number] [address] [place] [phone] Oct, [place] [address] [id number] [address] [place] [phone] Oct, Back pain M54.9 and Anxiety F41.9 [place] [address] [id number] [address] [place] [id number] September, Anxiety F41.9 and Back pain M54.9 [place] [address] [id number] [address] [place] [phone] September, Diabetes E11.9 ; Hypertensio n I10 ; COPD (chronic obstructive pulmonary disease) J44.9 and Lumbar radiculopathy, chronic M54.16 [place] [address] [id number] [address] [place] [phone] September, Anxiety F41.9 [facility] [address] [id number] [address] [place] [phone] Aug, [facility] [address] [id number] [address] [place] [phone] Aug, [facility] [address] [id number] [address] [place] [phone] Aug, Anxiety F41.9 and Back pain M54.9 [facility] [address] [id number] [address] [place] [id number] Aug, Medicare annual wellness vis it, initial Z00.00 ; COPD (chronic obstructive pulmonary disease) J44.9 ; PAD (peripheral artery disease) I73.9 ; Insulin long-term use Z79.4 ; Hypertension I10 ; Anxiety F41.9 ; Recurrent major depressive disorder, in full remission F33.42 ; Pressure ulcer of other site, stage 3 L89.893 ; Type 2 diabetes mellitus with diabetic peripheral angiopathy without gangrene E11.51 and FCI current use of insulin Z79.4 [facility] [address] [id number] [address] [place] [phone] Jul, Back pain M54.9 [facility] [address] [id number] [address] [place] [phone] Jul, [facility] [address] [id number] [address] [place] [phone] Jul, Anxiety F41.9 and Back pain M54.9 [facility] [address] [id number] [address] [place] [phone] Jul, Diabetes E11.9 [facility] [address] [id number] [address] [place] [phone] May, [facility] [address] [id number] [address] [place] [phone] May, Diabetes E11.9 ; Anxiety F41 .9 ; Back pain M54.9 and COPD (chronic obstructive pulmonary disease) J44.9 [facility] [address] [id number] [address] [place] [phone] May, Back pain M54.9 [facility] [address] [id number] [address] [place] [id number] May, [facility] [address] [id number] [address] [place] [phone] Apr, Back pain M54.9 [facility] [address] [id number] [address] [place] [phone] 30 Mar, 2017 Back pain M54.9 [facility] [address] [id number] [address] [place] [phone] 20 Mar, 2017 [facility] [address] [id number] [address] [place] [phone] 16 Mar, 2017 [facility] [address] [id number] [address] [place] [phone] 14 Mar, 2017 Radiculopathy of lumbar rhiannon on M54.16 [facility] [address] [id number] [address] [place] [phone] 13 Mar, 2017 [facility] [address] [id number] [address] [place] [id number] 07 Mar, 2017 Encounter for immunization Z 23 and Lumbar radiculopathy, chronic M54.16 [facility] [address] [id number] [address] [place] [phone] Mar, Back pain M54.9 and Anxiety F41.9 [facility] [address] [id number] [address] [place] [phone] 10 Feb, 2017 Acute bilateral low back boy n with left-sided sciatica M54.42 and Acute bilateral low back pain with right-sided sciatica M54.41 [facility] [address] [id number] [address] [place] [phone] Feb, [facility] [address] [id number] [address] [place] [phone] Feb, Back pain M54.9 [facility] [address] [id number] [address] [place] [phone] 05 Jan, 2017 Back pain M54.9 and Anxiety F41.9 [facility] [address] [id number] [address] [place] [phone] 05 Jan, 2017 Diabetes E11.9 [facility] [address] [id number] [address] [place] [phone] 14 Dec, 2016 Diabetes E11.9 ; Back pain M 54.9 ; Anxiety F41.9 and Insulin long- term use Z79.4 [facility] [address] [id number] [address] [place] [id number] 09 Dec, 2016 Anxiety F41.9 [facility] [address] [id number] [address] [place] [phone] Dec, Back pain M54.9 [facility] [address] [id number] [address] [place] [phone] Nov, Back pain M54.9 [facility] [address] [id number] [address] [place] [phone] Oct, Back pain M54.9 and Anxiety F41.9 [facility] [address] [facility] [id number] [address] [place] [phone] September, Back pain M54.9 [facility] [address] [id number] [address] [place] [phone] September, Back pain M54.9 and Anxiety F41.9 [facility] [address] [facility] [place] [id number] [address] [place] [phone] Aug, Diabetes E11.9 ; Anxiety F41 .9 ; Back pain M54.9 and PAD (peripheral artery disease) I73.9 [facility] [address] [id number] [address] [place] [phone] Aug, Anxiety F41.9 [facility] [address] [id number] [address] [place] [phone] 14 Aug, 2016 Back pain M54.9 [facility] [address] [facility] [place] [id number] [address] [place] [phone] 23 Jul, 2016 Back pain M54.9 [facility] [address] [facility] [place] [id number] [address] [place] [phone] Jul, Back pain M54.9 [facility] [address] [id number] [address] [place] [id number] 23 Jul, 2016 Back pain M54.9 [facility] [address] [id number] [address] [place] [phone] 16 Jul, 2016 Dorsalgia M54.9 [facility] [address] [id number] [address] [place] [phone] 14 Jul, 2016 [facility] [address] [facility] [place] [id number] [address] [place] [phone] May, Back pain M54.9 [facility] [address] [id number] [address] [place] [phone] May, Diabetes E11.9 ; Anxiety F41 .9 ; Port catheter in place Z95.828 ; Encounter for immunization Z23 and Insulin long-term use Z79.4 [facility] [address] [id number] [address] [place] [phone] Apr, Back pain M54.9 [facility] [address] [id number] [address] [place] [phone] Apr, Back pain M54.9 [facility] [address] [facility] [place] [id number] [address] [place] [phone] Apr, [facility] [address] [id number] [address] [place] [phone] Apr, Back pain M54.9 [facility] [address] [id number] [address] [place] [phone] Mar, COPD (chronic obstructive pu lmonary disease) J44.9 [facility] [address] [id number] [address] [place] [address] [id number] Feb, [facility] [address] [id number] [address] [place] [phone] 30 Jan, 2016 [facility] [address] [facility] [id number] [address] [place] [phone] Jan, [facility] [address] [id number] [address] [place] [id number] Jan, [facility] [address] [id number] [address] [place] [address] Jan, [facility] [address] [id number] [address] [place] [phone] Dec, Diabetes E11.9 ; Hypoxia R09 .02 and Back pain M54.9 [facility] [address] [id number] [address] [place] [address] Dec, [facility] [address] [id number] [address] [place] [id number] Nov, [facility] [address] [id number] [address] [place] [address] Oct, Anxiety F41.9 [facility] [address] [id number] [address] [place] [address] Oct, Back pain M54.9 [facility] [address] [id number] [address] [place] [phone] September, Back pain M54.9 [facility] [address] [id number] [address] [place] [address] September, Diabetes E11.9 [facility] [address] [id number] [address] [place] [id number] September, [facility] [address] [id number] [address] [place] [id number] September, Diabetes E11.9 ; Insulin sarai g-term use Z79.4 and Back pain M54.9 [facility] [address] [id number] [address] [place] [address] Aug, Back pain M54.9 [facility] [address] [facility] [id number] [address] [place] [address] Aug, Back pain M54.9 ; Anxiety F4 1.9 and Arthropathy, unspecified M12.9 [facility] [address] [facility] [id number] [address] [place] [phone] Jul, Back pain M54.9 [facility] [address] [facility] [id number] [address] [place] [phone] Jul, Anxiety F41.9 [facility] [address] [facility] [id number] [address] [place] [phone] Jul, Back pain M54.9 [facility] [address] [facility] [id number] [address] [place] [id number] Jul, [facility] [address] [facility] [id number] [address] [place] [phone] Jul, [facility] [address] [facility] [id number] [address] [place] [phone] May, Back pain M54.9 ; Diabetes E 11.9 ; Insulin long-term use Z79.4 ; COPD (chronic obstructive pulmonary disease) J44.9 and Hypertension I10 [facility] [address] [facility] [id number] [address] [place] [address] May, Chronic pain G89.29 [facility] [address] [facility] [id number] [address] [place] [phone] Apr, [facility] [address] [facility] [id number] [address] [place] [id number] Apr, [facility] [address] [facility] [id number] [address] [place] [id number] Mar, [facility] [address] [facility] [id number] [address] [place] [phone] Mar, Encounter for immunization Z 23 and Diabetes E11.9 [facility] [address] [facility] [id number] [address] [place] [id number] Feb, [facility] [address] [facility] [id number] [address] [place] [phone] Feb, [facility] [address] [id number] [address] [place] [id number] 23 Jan, 2015 [facility] [address] [id number] [address] [place] [phone] Jan, [facility] [address] [id number] [address] [place] [id number] Dec, [facility] [address] [id number] [address] [place] [phone] Dec, [facility] [address] [id number] [address] [place] [id number] Dec, Unspecified arthropathy, sit e unspecified 716.90 and Diabetes mellitus type 2, uncontrolled 250.02 [facility] [address] [id number] [address] [place] [address], [place] [address] Dec, [facility] [address] [id number] [address] [place] [phone] Nov, [facility] [address] [id number] [address] [place] [phone] Oct, [facility] [address] [id number] [address] [place] [phone] September, [facility] [address] [id number] [address] [place] [phone] September, [facility] [address] [id number] [address] [place] [phone] September, [facility] [address] [id number] [address] [place] [id number] September, [facility] [address] [id number] [address] [place] [phone] Aug, [facility] [address] [id number] [address] [place] [phone] Aug, [facility] [address] [id number] [address] [place] [phone] Jul, [facility] [address] [id number] [address] [place] [address], [place] [address] 18 Jul, 2014 [facility] [address] [id number] [address] [place] [address], [place] [address] 16 Jul, 2014 [facility] [address] [id number] [address] [place] [address], [place] [address] 16 Jul, 2014 [facility] [address] [id number] [address] [place] [address], [place] [address] 16 Jul, 2014 [facility] [address] [id number] [address] [place] [address], [place] [address] 16 Jul, 2014 [facility] [address] [id number] [address] [place] [address], [place] [address] 16 Jul, 2014 [facility] [address] [id number] [address] [place] [address], [place] [address] 16 Jul, 2014 [facility] [address] [id number] [address] [place] [address], [place] [address] 16 Jul, 2014 [facility] [address] [id number] [address] [place] [address], [place] [address] 13 Jul, 2014 [facility] [address] [id number] [address] [place] [address], [place] [address] 13 Jul, 2014 [facility] [address] [id number] [address] [place] [address], [place] [address] 09 Jul, 2014 [facility] [address] [id number] [address] [place] [address], [place] [address] 09 Jul, 2014 [facility] [address] [id number] [address] [place] [address], [place] [address] 17 Jul, 2014 [facility] [address] [id number] [address] [place] [address], [place] [address] 17 Jul, 2014 [facility] [address] [id number] [address] [place] [address], [place] [address] 16 Jul, 2014 [facility] [address] [id number] [address] [place] [address], [place] [address] 16 Jul, 2014 [facility] [address] [id number] [address] [place] [address], [place] [address] 16 Jul, 2014 [facility] [address] [id number] [address] [place] [address], [place] [address] 16 Jul, 2014 [facility] [address] [id number] [address] [place] [address], [place] [address] 16 Jul, 2014 [facility] [address] [id number] [address] [place] [address], [place] [address] 16 Jul, 2014 [facility] [address] [id number] [address] [place] [address], [place] [address] 16 Jul, 2014 [facility] [address] [id number] [address] [place] [address], [place] [address] 16 Jul, 2014 [facility] [address] [id number] [address] [place] [address], [place] [address] 16 Jul, 2014 [facility] [address] [id number] [address] [place] [address], [place] [address] 16 Jul, 2014 [facility] [address] [id number] [address] [place] [address], [place] [address] 16 Jul, 2014 [facility] [address] [id number] [address] [place] [address], [place] [address] 16 Jul, 2014 [facility] [address] [id number] [address] [place] [address], [place] [address] Jul, 2014 [facility] [address] [id number] [address] [place] [address], [place] [address] 16 Jul, 2014 [facility] [address] [id number] [address] [place] [address], [place] [address] May, [facility] [address] [id number] [address] [place] [phone] May, [facility] [address] [id number] [address] [place] [phone] May, [facility] [address] [id number] [address] [place] [address], [place] [address] May, [facility] [address] [id number] [address] [place] [address], [place] [address] May, [facility] [address] [id number] [address] [place] [address], [place] [address] May, [facility] [address] [id number] [address] [place] [address], [place] [address] May, [facility] [address] [id number] [address] [place] [address], [place] [address] May, [facility] [address] [id number] [address] [place] [address], [place] [address] May, [facility] [address] [id number] [address] [place] [address], [place] [address] May, [facility] [address] [id number] [address] [place] [address], [place] [address] Apr, [facility] [address] [id number] [address] [place] [address], [place] [address] Apr, [facility] [address] [id number] [address] [place] [address], [place] [address] Apr, [facility] [address] [id number] [address] [place] [address], [place] [address] Apr, [facility] [address] [id number] [address] [place] [address], [place] [address] Apr, [facility] [address] [id number] [address] [place] [address], [place] [address] Apr, [facility] [address] [id number] [address] [place] [address], [place] [address] Mar, [facility] [address] [id number] [address] [place] [address], [place] [address] Mar, [facility] [address] [id number] [address] [place] [address], [place] [address] Mar, [facility] [address] [id number] [address] [place] [address], [place] [address] Mar, [facility] [address] [id number] [address] [place] [address], [place] [address] Mar, [facility] [address] [id number] [address] [place] [address], [place] [address] Mar, [facility] [address] [id number] [address] [place] [address], [place] [address] Mar, [facility] [address] [id number] [address] [place] [address], [place] [address] Mar, [facility] [address] [id number] [address] [place] [address], [place] [address] Mar, [facility] [address] [id number] [address] [place] [address], [place] [address] Mar, [facility] [address] [id number] [address] [place] [address], [place] [address] Mar, [facility] [address] [id number] [address] [place] [address], [place] [address] Feb, [facility] [address] [id number] [address] [place] [address], [place] [address] 30 Feb, 2014 [facility] [address] [id number] [address] [place] [address], [place] [address] 15 Feb, 2014 [facility] [address] [id number] [address] [place] [address], [place] [address] 15 Feb, 2014 [facility] [address] [id number] [address] [place] [address], [place] [address] Feb, [facility] [address] [id number] [address] [place] [address], [place] [address] Feb, [facility] [address] [id number] [address] [place] [address], [place] [address] Feb, [facility] [address] [id number] [address] [place] [address], [place] [address] Feb, [facility] [address] [id number] [address] [place] [address], [place] [address] Feb, [facility] [address] [id number] [address] [place] [address], [place] [address] Feb, [facility] [address] [id number] [address] [place] [address], [place] [address] Jan, [facility] [address] [id number] [address] [place] [address], [place] [address] Jan, [facility] [address] [id number] [address] [place] [address], [place] [address] Jan, [facility] [address] [id number] [address] [place] [address], [place] [address] Jan, [facility] [address] [id number] [address] [place] [address], [place] [address] Jan, [facility] [address] [id number] [address] [place] [address], [place] [address] Jan, [facility] [address] [id number] [address] [place] [address], [place] [address] Jan, [facility] [address] [id number] [address] [place] [address], [place] [address] Dec, [facility] [address] [id number] [address] [place] [address], [place] [address] Dec, [facility] [address] [id number] [address] [place] [address], [place] [address] Dec, [facility] [address] [id number] [address] [place] [address], [place] [address] Dec, [facility] [address] [id number] [address] [place] [address], [place] [address] Dec, [facility] [address] [id number] [address] [place] [address], [place] [address] Dec, [facility] [address] [id number] [facility] [place] [address] Dec, [facility] [address] [id number] [address] [place] [address], [place] [address] Dec, [facility] [address] [id number] [address] [place] [address], [place] [address] Oct, [facility] [address] [id number] [address] [place] [address], [place] [address] Oct, [facility] [address] [id number] [address] [place] [address], [place] [address] September, [facility] [address] [id number] [address] [place] [address], [place] [address] September, [facility] [address] [id number] [address] [place] [address], [place] [address] September, [facility] [address] [id number] [address] [place] [address], [place] [address] September, [facility] [address] [id number] [address] [place] [address], [place] [address] September, [facility] [address] [id number] [address] [place] [address], [place] [address] September, [facility] [address] [id number] [address] [place] [address], [place] [address] September, [facility] [address] [id number] [address] [place] [address], [place] [address] Aug, [facility] [address] [id number] [address] [place] [address], [place] [address] Aug, [facility] [address] [id number] [address] [place] [address], [place] [address] Jul, [facility] [address] [id number] [address] [place] [address], [place] [address] Jul, [facility] [address] [id number] [address] [place] [address], [place] [address] 17 Jul, 2013 [facility] [address] [id number] [address] [place] [address], [place] [address] 17 Jul, 2013 [facility] [address] [id number] [address] [place] [address], [place] [address] 14 Jul, 2013 [facility] [address] [id number] [address] [place] [address], [place] [address] 14 Jul, 2013 [facility] [address] [id number] [address] [place] [address], [place] [address] Jul, [facility] [address] [id number] [address] [place] [address], [place] [address] Jul, [facility] [address] [id number] [address] [place] [address], [place] [address] 15 May, 2013 [facility] [address] [id number] [address] [place] [address], [place] [address] 15 May, 2013 [facility] [address] [id number] [address] [place] [address], [place] [address] May, [facility] [address] [id number] [address] [place] [address], [place] [address] May, [facility] [address] [id number] [address] [place] [address], [place] [address] Apr, [facility] [address] [id number] [address] [place] [address], [place] [address] Mar, [facility] [address] [id number] [address] [place] [address], [place] [address] Mar, [facility] [address] [id number] [address] [place] [address], [place] [address] Mar, [facility] [address] [id number] [address] [place] [address], [place] [address] Mar, [facility] [address] [id number] [address] [place] [address], [place] [address] Mar, [facility] [address] [id number] [address] [place] [address], [place] [address] Mar, [facility] [address] [id number] [address] [place] [address], [place] [address] Mar, [facility] [address] [id number] [address] [place] [address], [place] [address] Mar, [facility] [address] [id number] [address] [place] [address] Mar, [facility] [address] [id number] [address] [place] [address], [place] [address] Mar, [facility] [address] [id number] [address] [place] [address], [place] [address] Mar, [facility] [address] [id number] [address] [place] [address], [place] [address] Mar, [facility] [address] [id number] [address] [place] [address], [place] [address] Feb, [facility] [address] [id number] [address] [place] [address], [place] [address] Feb, [facility] [address] [id number] [address] [place] [address], [place] [address] Feb, [facility] [address] [id number] [address] [place] [id number] Feb, [facility] [address] [id number] [address] [place] [id number] Feb, [facility] [address] [id number] [address] [place] [address], [place] [address] Jan, [facility] [address] [id number] [address] [place] [address], [place] [address] Dec, [facility] [address] [id number] [address] [place] [address], [place] [address] Dec, [facility] [address] [id number] [address] [place] [address], [place] [address] Dec, [facility] [place] [address] [id number] [address] [place] [address], [place] [address] Nov, [facility] [place] [address] [id number] [address] [place] [address], [place] [address] Nov, [facility] [place] [address] [id number] [address] [place] [address], [place] [address] Nov, [facility] [place] [address] [id number] [address] [place] [address], [place] [address] Oct, [facility] [place] [address] [id number] [address] [place] [address], [place] [address] Oct, [facility] [place] [address] [id number] [address] [place] [address], [place] [address] Oct, [facility] [place] [address] [id number] [address] [place] [address], [place] [address] September, [facility] [address] [id number] [address] [place] [address], [place] [address] September, [facility] [place] [address] [id number] [address] [place] [address], [place] [address] September, [facility] [address] [id number] [address] [place] [address], [place] [address] September, [facility] [address] [id number] [address] [place] [address], [place] [address] September, [facility] [address] [id number] [address] [place] [address], [place] [address] Aug, [facility] [address] [id number] [address] [place] [address], [place] [address] Aug, [facility] [address] [id number] [address] [place] [address], [place] [address] Aug, [facility] [place] [address] [id number] [address] [place] [address], [place] [address] Jul, [facility] [place] [address] [id number] [address] [place] [address], [place] [address] Jul, [facility] [address] [id number] [address] [place] [address], [place] [address] Jul, [facility] [place] [address] [id number] [address] [place] [address], [place] [address] Jul, [facility] [address] [id number] [address] [place] [address], [place] [address] Jul, [facility] [address] [id number] [address] [place] [address], [place] [address] Jul, [facility] [address] [id number] [address] [place] [address], [place] [address] Jul, [facility] [place] [address] [id number] [address] [place] [address], [place] [address] May, [facility] [place] [address] [id number] [address] [place] [address], [place] [address] May, [facility] [place] [address] [id number] [address] [place] [address], [place] [address] May, [facility] [place] [address] [id number] [address] [place] [address], [place] [address] Apr, [facility] [place] [address] [id number] [address] [place] [address], [place] [address] Apr, [facility] [address] [id number] [address] [place] [address], [place] [address] Apr, [facility] [address] [id number] [address] [place] [address], [place] [address] Apr, [facility] [address] [id number] [address] [place] [address], [place] [address] Apr, [facility] [address] [id number] [address] [place] [address], [place] [address] 29 Mar, 2012 [facility] [address] [id number] [address] [place] [address], [place] [address] Mar, [facility] [address] [id number] [address] [place] [address], [place] [address] Mar, [facility] [address] [id number] [address] [place] [address], [place] [address] Mar, [facility] [address] [id number] [address] [place] [address], [place] [address] Feb, [facility] [address] [id number] [address] [place] [address], [place] [address] Feb, [facility] [address] [id number] [address] [place] [address], [place] [address] Feb, [facility] [address] [id number] [address] [place] [address], [place] [address] Feb, [facility] [address] [id number] [address] [place] [address], [place] [address] Feb, [facility] [address] [id number] [address] [place] [address], [place] [address] Jan, [facility] [address] [id number] [address] [place] [address], [place] [address] Dec, [facility] [address] [id number] [address] [place] [address], [place] [address] Dec, [facility] [address] [id number] [address] [place] [address], [place] [address] Dec, [facility] [address] [id number] [address] [place] [address], [place] [address] Nov, [facility] [address] [id number] [address] [place] [address], [place] [address] Nov, [facility] [address] [id number] [address] [place] [address], [place] [address] Nov, [facility] [address] [id number] [address] [place] [address], [place] [address] Oct, [facility] [address] [id number] [address] [place] [address], [place] [address] Oct, [facility] [address] [id number] [address] [place] [address], [place] [address] Oct, [facility] [address] [id number] [address] [place] [address], [place] [address] Oct, [facility] [address] [id number] [address] [place] [address], [place] [address] September, [facility] [address] [id number] [address] [place] [address], [place] [address] September, [facility] [address] [id number] [address] [place] [address], [place] [address] 30 Aug, 2011 [facility] [address] [id number] [address] [place] [address], [place] [address] Aug, [facility] [address] [id number] [address] [place] [address], [place] [address] Aug, [facility] [address] [id number] [address] [place] [address], [place] [address] Aug, [facility] [address] [id number] [address] [place] [address], [place] [address] Aug, [facility] [address] [id number] [address] [place] [address], [place] [address] Aug, [facility] [address] [id number] [address] [place] [address], [place] [address] Aug, [facility] [address] [id number] [address] [place] [address], [place] [address] Jul, [facility] [address] [id number] [address] [place] [address], [place] [address] Jul, [facility] [address] [id number] [address] [place] [address], [place] [address] 14 Jul, 2011 [facility] [address] [id number] [address] [address] May, [facility] [address] [id number] [address] [place] [phone] May, [facility] [address] [id number] [address] [place] [address] May, [facility] [address] [id number] [address] [place] [address] Apr, [facility] [address] [id number] [address] [place] [phone] Apr, [facility] [address] [id number] [address] [place] [id number] Mar, [facility] [address] [id number] [address] [place] [address] Mar, [facility] [address] [id number] [address] [place] [phone] Mar, [facility] [address] [id number] [address] [place] [phone] Mar, [facility] [address] [id number] [address] [place] [address] Mar, [facility] [address] [id number] [address] [place] [phone] Mar, [facility] [address] [id number] [address] [place] [phone] Feb, [facility] [address] [id number] [address] [place] [address] Feb, [facility] [address] [id number] [address] [place] [phone] Feb, IMMUNIZATIONS No Known Immunizations SOCIAL HISTORY Never Assessed REASON FOR VISIT PLAN OF CARE VITAL SIGNS Height 72 in 2013-03-14 Weight 263 lbs 2013-03-14 Temperature 97.7 degrees Fahrenheit 2013-03-14 Heart Rate 72 bpm 2013-03-14 Respiratory Rate 18 2013-03-14 Blood pressure systolic 142 mmHg 2013-03-14 Blood pressure diastolic 64 mmHg 2013-03-14 MEDICATIONS Unknown Medications RESULTS No Results PROCEDURES [...] foot infections x 3 2015 Hospitalization History [facility] - right big t oe removed 2019
--- NOTE | 2020-01-03 08:16 | Progress Note-Pre Operative ---
Pre-Operative Progress Note H&P Reviewed The H&P was reviewed, patient examined and no changes noted. Time Seen by Provider: 08:10 Date H&P Reviewed: Jan 03, 2020 Time H&P Reviewed: 08:11 Pre-Operative Diagnosis: Right 3rd toe Osteomyelitis MARIEL BACK DO Jan 03, 2020 08:16
--- OUTSIDE RECORDS SUMMARY | 2020-01-03 08:16 | XMS REPORT ---
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 Name Role Phone FERNY SILVERIO Unavailable PROBLEMS Type Condition ICD9-CM Code MCB26-MD Code Onset Dates Condition S tatus SNOMED Code Problem Hypertension I10 Active 2027767 3 Problem Hypoxia R09.02 Active 385660057 Problem COPD (chronic obstructive pulmonary disease) J44.9 Active 68721251 Problem Lumbar radiculopathy, chronic M54.16 Active 548007383 Problem halfway current use of insulin Z79.4 Active 674271459 Problem Recurrent major depressive disorder, in full remission F33.42 Active 441629357 Problem Hyperlipidemia, unspecified E78.5 Ac tive 54104964 Problem PAD (peripheral artery disease) I73.9 Active 954456519 Problem Type 2 diabetes mellitus with other specified complication E11.69 Active 317313629127 Problem Anxiety F41.9 Active 98382419 Problem Type 2 diabetes mellitus wit h diabetic peripheral angiopathy without gangrene E11.51 Active 042159231 Problem ED (erectile dysfunction) of organic origin N52.9 Active 705347247 Problem Arthritis M19.90 Active 2983673 Problem Morbid (severe) obesity due to excess calories E66 .01 Active 246545729 ALLERGIES No Information ENCOUNTERS Encounter Location Date Diagnosis [id number] [place] [address] September, Anxiety F41.9 [facility] [address] [id number] [place] [address] Aug, [facility] [address] [facility] [id number] [address] [place] [phone] Aug, Back pain M54.9 and Lumbar r adiculopathy, chronic M54.16 [facility] [address] [facility] [id number] [address] [place] [phone] 10 Aug, 2019 Anxiety F41.9 ; Back pain M5 4.9 and Lumbar radiculopathy, chronic M54.16 [facility] [address] [id number] [address] [place] [phone] 09 Aug, 2019 Lumbar radiculopathy, chroni c M54.16 ; Anxiety F41.9 ; Type 2 diabetes mellitus with other specified complication E11.69 and Hypertension I10 [facility] [address] [id number] [address] [place] [phone] 30 Jul, 2019 [facility] [address] [id number] [address] [place] [phone] 27 Jul, 2019 Lumbar radiculopathy, chroni c M54.16 ; Back pain M54.9 and Anxiety F41.9 [facility] [address] [id number] [address] [place] [phone] 23 Jul, 2019 [facility] [address] [id number] [address] [place] [phone] 13 Jul, 2019 Anxiety F41.9 [facility] [address] [id number] [address] [place] [phone] 12 Jul, 2019 Anxiety F41.9 [facility] [address] [id number] [address] [place] [phone] 02 Jul, 2019 Back pain M54.9 [facility] [address] [id number] [address] [place] [phone] 02 Jul, 2019 Back pain M54.9 [facility] [address] [id number] [address] [place] [phone] Jul, Lumbar radiculopathy, chroni c M54.16 [facility] [address] [id number] [address] [place] [phone] 28 Jul, 2019 Back pain M54.9 [facility] [address] [facility] [id number] [address] [place] [phone] 07 Jul, 2019 Encounter for Medicare sam [...] diabetes mellitus with other specified complication E11.69 [facility] [address] [id number] [address] [place] [phone] 03 Jul, 2019 Back pain M54.9 [place] [address] [id number] [address] [place] [phone] Jul, Anxiety F41.9 [place] [address] [id number] [address] [place] [phone] May, [place] [address] [id number] [address] [place] [phone] May, Lumbar radiculopathy, chroni c M54.16 [place] [address] [id number] [address] [place] [phone] May, Back pain M54.9 [facility] [address] [id number] [address] [place] [phone] May, [place] [address] [id number] [address] [place] [phone] May, Back pain M54.9 and Anxiety F41.9 [facility] [address] [id number] [address] [place] [phone] May, [place] [address] [facility] [id number] [address] [place] [phone] May, Type 2 diabetes mellitus wit h diabetic peripheral angiopathy without gangrene E11.51 ; Arthritis M19.90 ; ED (erectile dysfunction) of organic origin N52.9 ; Morbid (severe) obesity due to excess calories E66.01 and Lumbar radiculopathy, chronic M54.16 [facility] [address] [id number] [address] [place] [phone] May, Diabetes E11.9 [facility] [address] [id number] [address] [place] [phone] Apr, [facility] [address] [id number] [address] [place] [phone] Apr, Back pain M54.9 [facility] [address] [id number] [address] [place] [phone] Apr, [facility] [address] [id number] [address] [place] [phone] Apr, Anxiety F41.9 [facility] [address] [id number] [address] [place] [phone] Apr, Back pain M54.9 and Lumbar r adiculopathy, chronic M54.16 [facility] [address] [id number] [address] [place] [phone] Apr, Back pain M54.9 ; Anxiety F4 1.9 and Lumbar radiculopathy, chronic M54.16 [facility] [address] [id number] [address] [place] [phone] Mar, [facility] [address] [id number] [address] [place] [phone] Mar, [facility] [address] [id number] [address] [place] [phone] Mar, Back pain M54.9 [facility] [address] [id number] [address] [place] [phone] Mar, [facility] [address] [facility] [id number] [address] [place] [phone] Feb, Type 2 diabetes mellitus wit h diabetic peripheral angiopathy without gangrene E11.51 ; Lumbar radiculopathy, chronic M54.16 ; ED (erectile dysfunction) of organic origin N52.9 ; Encounter for immunization Z23 ; COPD (chronic obstructive pulmonary disease) J44.9 and Anxiety F41.9 [facility] [address] [id number] [address] [place] [phone] Feb, Back pain M54.9 [facility] [address] [id number] [address] [place] [phone] Feb, [facility] [address] [id number] [address] [place] [phone] Feb, [facility] [address] [id number] [address] [place] [phone] Feb, [facility] [address] [id number] [address] [place] [phone] Feb, Back pain M54.9 [facility] [address] [id number] [address] [place] [phone] Feb, [facility] [address] [id number] [address] [place] [phone] Jan, Anxiety F41.9 [facility] [address] [id number] [address] [place] [phone] Jan, Anxiety F41.9 [facility] [address] [id number] [address] [place] [phone] Jan, [facility] [address] [id number] [address] [place] [phone] Jan, [facility] [address] [id number] [address] [place] [phone] Jan, Back pain M54.9 [facility] [address] [id number] [address] [place] [phone] Jan, [facility] [address] [id number] [address] [place] [phone] Dec, Acute non-recurrent frontal sinusitis J01.10 [facility] [address] [id number] [address] [place] [phone] Dec, Acute non-recurrent frontal sinusitis J01.10 [facility] [address] [id number] [address] [place] [phone] Dec, Type 2 diabetes mellitus wit h diabetic peripheral angiopathy without gangrene E11.51 ; Lumbar radiculopathy, chronic M54.16 ; Recurrent major depressive disorder, in full remission F33.42 and Anxiety F41.9 [facility] [address] [id number] [address] [place] [phone] Dec, [facility] [address] [id number] [address] [place] [phone] Nov, Anxiety F41.9 [facility] [address] [id number] [address] [place] [phone] Nov, [facility] [address] [id number] [address] [place] [phone] Nov, Back pain M54.9 [facility] [address] [id number] [address] [place] [phone] Nov, [facility] [address] [id number] [address] [place] [phone] Nov, Back pain M54.9 [facility] [address] [id number] [address] [place] [phone] Nov, Anxiety F41.9 [facility] [address] [id number] [address] [place] [phone] Nov, [facility] [address] [id number] [address] [place] [phone] Oct, Back pain M54.9 [facility] [address] [id number] [address] [place] [phone] Oct, [facility] [address] [id number] [address] [place] [phone] Oct, [facility] [address] [id number] [address] [place] [phone] Oct, [facility] [address] [id number] [address] [place] [phone] September, Back pain M54.9 [facility] [address] [id number] [address] [place] [phone] September, [facility] [address] [id number] [address] [place] [phone] September, [facility] [address] [id number] [address] [place] [phone] September, [facility] [address] [id number] [address] [place] [phone] Aug, Back pain M54.9 [facility] [address] [id number] [address] [place] [phone] Aug, Anxiety F41.9 [facility] [address] [id number] [address] [place] [phone] Aug, [facility] [address] [id number] [address] [place] [phone] Aug, Pressure ulcer of other site , stage 3 L89.893 and COPD (chronic obstructive pulmonary disease) J44.9 [facility] [address] [id number] [address] [place] [address] Aug, History of smoking Z87.891 [facility] [address] [id number] [address] [place] [phone] Jul, Type 2 diabetes mellitus wit h diabetic peripheral angiopathy without gangrene E11.51 [facility] [address] [id number] [address] [place] [phone] Jul, Back pain M54.9 [facility] [address] [id number] [address] [place] [phone] Jul, Anxiety F41.9 [facility] [address] [facility] [id number] [address] [place] [phone] 18 Jul, 2018 [facility] [address] [id number] [address] [place] [id number] 13 Jul, 2018 Back pain M54.9 [facility] [address] [id number] [address] [place] [phone] Jul, Back pain M54.9 [facility] [address] [id number] [address] [place] [phone] Jul, Lumbar radiculopathy, chroni c M54.16 ; Hypertension I10 and Type 2 diabetes mellitus with diabetic peripheral angiopathy without gangrene E11.51 [facility] [address] [id number] [address] [place] [phone] Jul, Back pain M54.9 [facility] [address] [id number] [address] [place] [phone] Jul, Back pain M54.9 and Anxiety F41.9 [facility] [address] [id number] [address] [place] [phone] Jul, [facility] [address] [id number] [address] [place] [phone] May, Back pain M54.9 and Anxiety F41.9 [facility] [address] [id number] [address] [place] [phone] May, [facility] [address] [id number] [address] [place] [phone] Apr, Radiculopathy of lumbar rhiannon on M54.16 ; Back pain M54.9 and Anxiety F41.9 [facility] [address] [id number] [address] [place] [address] Apr, Diabetes E11.9 ; Muscle spas m M62.838 and Lumbar radiculopathy, chronic M54.16 [facility] [address] [id number] [address] [place] [phone] Apr, [place] [address] [id number] [address] [place] [phone] Apr, [facility] [address] [id number] [address] [place] [phone] Mar, Back pain M54.9 and Anxiety F41.9 [facility] [address] [facility] [id number] [address] [place] [phone] Mar, [facility] [address] [id number] [address] [place] [address] Mar, [facility] [address] [id number] [address] [place] [phone] Mar, [facility] [address] [facility] [id number] [address] [place] [phone] Mar, Encounter for immunization Z 23 [facility] [address] [facility] [id number] [address] [place] [phone] Feb, Back pain M54.9 and Anxiety F41.9 [facility] [address] [id number] [address] [place] [phone] 04 Feb, 2018 Back pain M54.9 and Anxiety F41.9 [facility] [address] [facility] [id number] [address] [place] [phone] 06 Jan, 2018 Back pain M54.9 and Anxiety F41.9 [facility] [address] [facility] [id number] [address] [place] [phone] Jan, [facility] [address] [id number] [address] [place] [phone] Dec, [facility] [address] [id number] [address] [place] [phone] Dec, Back pain M54.9 and Anxiety F41.9 [facility] [address] [facility] [id number] [address] [place] [address] Dec, Diabetes E11.9 ; Type 2 diab etes mellitus with diabetic peripheral angiopathy without gangrene E11.51 ; Lumbar radiculopathy, chronic M54.16 ; COPD (chronic obstructive pulmonary disease) J44.9 and Anxiety F41.9 [facility] [address] [id number] [address] [place] [phone] Dec, Back pain M54.9 and Anxiety F41.9 [facility] [address] [id number] [address] [place] [phone] Nov, Back pain M54.9 and Anxiety F41.9 [facility] [address] [id number] [address] [place] [phone] Oct, [place] [address] [id number] [address] [place] [address] Oct, Back pain M54.9 and Anxiety F41.9 [place] [address] [id number] [address] [place] [phone] September, Anxiety F41.9 and Back pain M54.9 [facility] [address] [id number] [address] [place] [phone] September, Diabetes E11.9 ; Hypertensio n I10 ; COPD (chronic obstructive pulmonary disease) J44.9 and Lumbar radiculopathy, chronic M54.16 [facility] [address] [id number] [address] [place] [phone] September, Anxiety F41.9 [facility] [address] [id number] [address] [place] [id number] Aug, [facility] [address] [id number] [address] [place] [phone] Aug, [facility] [address] [id number] [address] [place] [phone] Aug, Anxiety F41.9 and Back pain M54.9 [facility] [address] [id number] [address] [place] [phone] Aug, Medicare annual wellness vis it, initial Z00.00 ; COPD (chronic obstructive pulmonary disease) J44.9 ; PAD (peripheral artery disease) I73.9 ; Insulin long-term use Z79.4 ; Hypertension I10 ; Anxiety F41.9 ; Recurrent major depressive disorder, in full remission F33.42 ; Pressure ulcer of other site, stage 3 L89.893 ; Type 2 diabetes mellitus with diabetic peripheral angiopathy without gangrene E11.51 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 [facility] [address] [id number] [address] [place] [phone] Jul, Back pain M54.9 [facility] [address] [id number] [address] [place] [phone] Jul, [facility] [address] [id number] [address] [place] [phone] Jul, Anxiety F41.9 and Back pain M54.9 [facility] [address] [id number] [address] [place] [phone] Jul, Diabetes E11.9 [facility] [address] [id number] [address] [place] [phone] May, [facility] [address] [id number] [address] [place] [phone] May, Diabetes E11.9 ; Anxiety F41 .9 ; Back pain M54.9 and COPD (chronic obstructive pulmonary disease) J44.9 [facility] [address] [id number] [address] [place] [phone] May, Back pain M54.9 [facility] [address] [id number] [address] [place] [phone] May, [facility] [address] [id number] [address] [place] [phone] Apr, Back pain M54.9 [facility] [address] [id number] [address] [place] [phone] Mar, Back pain M54.9 [facility] [address] [id number] [address] [place] [phone] 20 Mar, 2017 [facility] [address] [facility] [id number] [address] [place] [phone] 16 Mar, 2017 [facility] [address] [facility] [id number] [address] [place] [phone] 14 Mar, 2017 Radiculopathy of lumbar rhiannon on M54.16 [facility] [address] [facility] [id number] [place] [phone] 13 Mar, 2017 [facility] [address] [facility] [id number] [address] [place] [phone] 07 Mar, 2017 Encounter for immunization Z 23 and Lumbar radiculopathy, chronic M54.16 [facility] [address] [facility] [id number] [address] [place] [phone] Mar, Back pain M54.9 and Anxiety F41.9 [facility] [address] [facility] [id number] [address] [place] [phone] 10 Feb, 2017 Acute bilateral low back boy n with left-sided sciatica M54.42 and Acute bilateral low back pain with right-sided sciatica M54.41 [facility] [address] [facility] [id number] [address] [place] [phone] Feb, [facility] [address] [place] [id number] [address] [place] [phone] Feb, Back pain M54.9 [facility] [address] [facility] [id number] [address] [place] [phone] 05 Jan, 2017 Back pain M54.9 and Anxiety F41.9 [facility] [address] [facility] [id number] [address] [place] [phone] 05 Jan, 2017 Diabetes E11.9 [facility] [address] [facility] [id number] [address] [place] [phone] 14 Dec, 2016 Diabetes E11.9 ; Back pain M 54.9 ; Anxiety F41.9 and Insulin long- term use Z79.4 [place] [id number] [id number] [address] [place] [phone] Dec, Anxiety F41.9 [facility] [address] [id number] [address] [place] [phone] Dec, Back pain M54.9 [facility] [address] [id number] [address] [place] [phone] Nov, Back pain M54.9 [facility] [address] [id number] [address] [place] [phone] Oct, Back pain M54.9 and Anxiety F41.9 [facility] [address] [id number] [address] [place] [id number] September, Back pain M54.9 [facility] [address] [id number] [address] [place] [phone] September, Back pain M54.9 and Anxiety F41.9 [facility] [address] [id number] [address] [place] [phone] Aug, Diabetes E11.9 ; Anxiety F41 .9 ; Back pain M54.9 and PAD (peripheral artery disease) I73.9 [facility] [address] [id number] [address] [place] [phone] Aug, Anxiety F41.9 [facility] [address] [id number] [address] [place] [phone] Aug, Back pain M54.9 [facility] [address] [id number] [address] [place] [phone] Jul, Back pain M54.9 [facility] [address] [id number] [address] [place] [phone] Jul, Back pain M54.9 [facility] [address] [id number] [address] [place] [phone] Jul, Back pain M54.9 [facility] [address] [id number] [address] [place] [phone] 16 Jul, 2016 Dorsalgia M54.9 [facility] [address] [id number] [place] [address] 14 Jul, 2016 [facility] [address] [id number] [address] [place] [address] May, Back pain M54.9 [facility] [address] [id number] [address] [place] [address] May, Diabetes E11.9 ; Anxiety F41 .9 ; Port catheter in place Z95.828 ; Encounter for immunization Z23 and Insulin long-term use Z79.4 [facility] [address] [id number] [address] [place] [address] Apr, Back pain M54.9 [facility] [address] [id number] [address] [place] [address] Apr, Back pain M54.9 [facility] [address] [id number] [address] [place] [address] Apr, [facility] [address] [id number] [address] [place] [address] Apr, Back pain M54.9 [facility] [address] [id number] [address] [place] [address] Mar, COPD (chronic obstructive pu lmonary disease) J44.9 [facility] [address] [id number] [address] [place] [address] Feb, [facility] [address] [id number] [address] [place] [address] 30 Jan, 2016 [facility] [address] [id number] [address] [place] [id number] 20 Jan, 2016 [facility] [address] [id number] [address] [place] [address] 07 Jan, 2016 [facility] [address] [id number] [address] [place] [address] Jan, [facility] [address] [id number] [address] [place] [address] Dec, Diabetes E11.9 ; Hypoxia R09 .02 and Back pain M54.9 [facility] [address] [id number] [address] [place] [address] Dec, [facility] [address] [id number] [address] [place] [address] Nov, [facility] [address] [id number] [address] [place] [address] Oct, Anxiety F41.9 [facility] [address] [id number] [address] [place] [address] Oct, Back pain M54.9 [facility] [address] [id number] [address] [place] [address] September, Back pain M54.9 [facility] [address] [id number] [address] [place] [address] September, Diabetes E11.9 [facility] [address] [id number] [address] [place] [address] September, [facility] [address] [id number] [address] [place] [address] September, Diabetes E11.9 ; Insulin sarai g-term use Z79.4 and Back pain M54.9 [facility] [address] [id number] [address] [place] [address] Aug, Back pain M54.9 [facility] [address] [id number] [address] [place] [address] Aug, Back pain M54.9 ; Anxiety F4 1.9 and Arthropathy, unspecified M12.9 [facility] [address] [id number] [address] [place] [address] Jul, Back pain M54.9 [facility] [address] [facility] [id number] [address] [place] [address] Jul, Anxiety F41.9 [facility] [address] [facility] [id number] [address] [place] [address] Jul, Back pain M54.9 [facility] [address] [facility] [id number] [address] [place] [address] Jul, [facility] [address] [facility] [id number] [address] [place] [phone] Jul, [facility] [address] [facility] [id number] [address] [place] [address] May, Back pain M54.9 ; Diabetes E 11.9 ; Insulin long-term use Z79.4 ; COPD (chronic obstructive pulmonary disease) J44.9 and Hypertension I10 [facility] [address] [facility] [id number] [address] [place] [address] May, Chronic pain G89.29 [facility] [address] [facility] [id number] [address] [place] [address] Apr, [facility] [address] [facility] [id number] [address] [place] [address] Apr, [facility] [address] [facility] [id number] [address] [place] [phone] Mar, [facility] [address] [facility] [id number] [address] [place] [address] Mar, Encounter for immunization Z 23 and Diabetes E11.9 [facility] [address] [facility] [id number] [address] [place] [id number] Feb, [facility] [address] [facility] [id number] [address] [place] [address] Feb, [facility] [address] [facility] [id number] [address] [place] [phone] Jan, [facility] [address] [facility] [id number] [address] [place] [id number] Jan, [facility] [address] [id number] [address] [place] [phone] Dec, [facility] [address] [id number] [address] [place] [address] Dec, [facility] [address] [id number] [address] [place] [address] Dec, Unspecified arthropathy, sit e unspecified 716.90 and Diabetes mellitus type 2, uncontrolled 250.02 [facility] [address] [id number] [address] [place] [id number] Dec, [facility] [address] [id number] [address] [place] [phone] Nov, [facility] [address] [id number] [address] [place] [address] Oct, [facility] [address] [id number] [address] [place] [address] September, [facility] [address] [id number] [address] [place] [address] September, [facility] [address] [id number] [address] [place] [phone] September, [facility] [address] [id number] [address] [place] [address] September, [facility] [address] [id number] [address] [place] [phone] Aug, [facility] [address] [id number] [address] [place] [phone] Aug, [facility] [address] [id number] [address] [place] [id number] Jul, [facility] [address] [id number] [address] [place] [phone] Jul, [facility] [address] [id number] [address] [place] [phone] 16 Jul, 2014 [facility] [address] [id number] [address] [place] [address], [place] [address] 16 Jul, 2014 [facility] [address] [id number] [address] [place] [address], [place] [address] 16 Jul, 2014 [facility] [address] [id number] [address] [place] [address], [place] [address] 16 Jul, 2014 [facility] [address] [id number] [address] [place] [address], [place] [address] 16 Jul, 2014 [facility] [address] [id number] [address] [place] [address], [place] [address] 16 Jul, 2014 [facility] [address] [id number] [address] [place] [address], [place] [address] 16 Jul, 2014 [facility] [address] [id number] [address] [place] [address], [place] [address] 13 Jul, 2014 [facility] [address] [id number] [address] [place] [address], [place] [address] 13 Jul, 2014 [facility] [address] [id number] [address] [place] [address], [place] [address] 09 Jul, 2014 [facility] [address] [id number] [address] [place] [address], [place] [address] 09 Jul, 2014 [facility] [address] [id number] [address] [place] [address], [place] [address] 17 Jul, 2014 [facility] [address] [id number] [address] [place] [address], [place] [address] 17 Jul, 2014 [facility] [address] [id number] [address] [place] [address], [place] [address] 16 Jul, 2014 [facility] [address] [id number] [address] [place] [address], [place] [address] 16 Jul, 2014 [facility] [address] [id number] [address] [place] [address], [place] [address] 16 Jul, 2014 [facility] [address] [id number] [address] [place] [address], [place] [address] 16 Jul, 2014 [facility] [address] [id number] [address] [place] [address], [place] [address] 16 Jul, 2014 [facility] [address] [id number] [address] [place] [address], [place] [address] 16 Jul, 2014 [facility] [address] [id number] [address] [place] [address], [place] [address] Jul, 2014 [facility] [address] [id number] [address] [place] [address], [place] [address] Jul, 2014 [facility] [address] [id number] [address] [place] [address], [place] [address] Jul, 2014 [facility] [address] [id number] [address] [place] [address], [place] [address] 16 Jul, 2014 [facility] [address] [id number] [address] [place] [address], [place] [address] Jul, 2014 [facility] [address] [id number] [address] [place] [address], [place] [address] Jul, 2014 [facility] [address] [id number] [address] [place] [address], [place] [address] 16 Jul, 2014 [facility] [address] [id number] [address] [place] [address], [place] [address] Jul, [facility] [address] [id number] [address] [place] [address], [place] [address] May, [facility] [address] [id number] [address] [place] [address], [place] [address] May, [facility] [address] [id number] [address] [place] [address], [place] [address] May, [facility] [address] [id number] [address] [place] [address], [place] [address] May, [facility] [address] [id number] [address] [place] [address], [place] [address] May, [facility] [address] [id number] [address] [place] [address], [place] [address] May, [facility] [address] [id number] [address] [place] [address], [place] [address] May, [facility] [address] [id number] [address] [place] [address], [place] [address] May, [facility] [address] [id number] [address] [place] [address], [place] [address] May, [facility] [address] [id number] [address] [place] [address], [place] [address] May, [facility] [address] [id number] [address] [place] [address], [place] [address] Apr, [facility] [address] [id number] [address] [place] [address], [place] [address] Apr, [facility] [address] [id number] [address] [place] [address], [place] [address] Apr, [facility] [address] [id number] [address] [place] [address], [place] [address] Apr, [facility] [address] [id number] [address] [place] [address], [place] [address] Apr, [facility] [address] [id number] [address] [place] [address], [place] [address] Apr, [facility] [address] [id number] [address] [place] [address], [place] [address] Mar, [facility] [address] [id number] [address] [place] [address], [place] [address] Mar, [facility] [address] [id number] [address] [place] [address], [place] [address] Mar, [facility] [address] [id number] [address] [place] [address], [place] [address] Mar, [facility] [address] [id number] [address] [place] [address], [place] [address] Mar, [facility] [address] [id number] [address] [place] [address], [place] [address] Mar, [facility] [address] [id number] [address] [place] [address], [place] [address] Mar, [facility] [address] [id number] [address] [place] [address], [place] [address] Mar, [facility] [address] [id number] [address] [place] [address], [place] [address] Mar, [facility] [address] [id number] [address] [place] [address], [place] [address] Mar, [facility] [address] [id number] [address] [place] [address], [place] [address] Mar, [facility] [address] [id number] [address] [place] [address], [place] [address] Feb, [facility] [address] [id number] [address] [place] [address], [place] [address] 30 Feb, 2014 [facility] [address] [id number] [address] [place] [address] Feb, [facility] [address] [id number] [address] [place] [address] 15 Feb, 2014 [facility] [address] [id number] [address] [place] [address] Feb, [facility] [address] [id number] [address] [place] [address], [place] [address] Feb, [facility] [address] [id number] [address] [place] [address] Feb, [facility] [address] [id number] [address] [place] [address] Feb, [facility] [address] [id number] [address] [place] [address] Feb, [facility] [address] [id number] [address] [place] [address], [place] [address] Feb, [facility] [address] [id number] [address] [place] [address], [place] [address] Jan, [facility] [address] [id number] [address] [place] [address], [place] [address] Jan, [facility] [address] [id number] [address] [place] [address], [place] [address] Jan, [facility] [address] [id number] [address] [place] [address], [place] [address] Jan, [facility] [address] [id number] [address] [place] [address], [place] [address] Jan, [facility] [address] [id number] [address] [place] [address], [place] [address] Jan, [facility] [address] [id number] [address] [place] [address], [place] [address] Jan, [facility] [address] [id number] [address] [place] [address], [place] [address] Dec, [facility] [address] [id number] [address] [place] [address], [place] [address] Dec, [facility] [address] [id number] [address] [place] [address], [place] [address] Dec, [facility] [address] [id number] [address] [place] [address], [place] [address] Dec, [facility] [address] [id number] [address] [place] [address], [place] [address] Dec, [facility] [address] [id number] [address] [place] [address], [place] [address] Dec, [facility] [address] [id number] [address] [place] [address], [place] [address] Dec, [facility] [address] [id number] [address] [place] [address], [place] [address] Dec, [facility] [address] [id number] [address] [place] [address], [place] [address] Oct, [facility] [address] [id number] [address] [place] [address], [place] [address] Oct, [facility] [address] [id number] [address] [place] [address], [place] [address] September, [facility] [address] [id number] [address] [place] [address], [place] [address] September, [facility] [address] [id number] [address] [place] [address], [place] [address] September, [facility] [address] [id number] [address] [place] [address], [place] [address] September, [facility] [address] [id number] [address] [place] [address], [place] [address] September, [facility] [address] [id number] [address] [place] [address], [place] [address] September, [facility] [address] [id number] [address] [place] [address], [place] [address] September, [facility] [address] [id number] [address] [place] [address], [place] [address] Aug, [facility] [address] [id number] [address] [place] [address], [place] [address] Aug, [facility] [address] [id number] [address] [place] [address], [place] [address] Jul, [facility] [address] [id number] [address] [place] [address], [place] [address] Jul, [facility] [address] [id number] [address] [place] [address], [place] [address] Jul, [facility] [address] [id number] [address] [place] [address], [place] [address] Jul, 2013 [facility] [address] [id number] [address] [place] [address], [place] [address] 14 Jul, 2013 [facility] [address] [id number] [address] [place] [address], [place] [address] 14 Jul, 2013 [facility] [address] [id number] [address] [place] [address], [place] [address] Jul, [facility] [address] [id number] [address] [place] [address], [place] [address] Jul, [facility] [address] [id number] [address] [place] [address], [place] [address] May, [facility] [address] [id number] [address] [place] [address], [place] [address] May, [facility] [address] [id number] [address] [place] [address], [place] [address] May, [facility] [address] [id number] [address] [place] [address], [place] [address] May, [facility] [address] [id number] [address] [place] [address], [place] [address] Apr, [facility] [address] [id number] [address] [place] [address], [place] [address] Mar, [facility] [address] [id number] [address] [place] [address], [place] [address] Mar, [facility] [address] [id number] [address] [place] [address], [place] [address] Mar, [facility] [address] [id number] [address] [place] [address], [place] [address] Mar, [facility] [address] [id number] [address] [place] [address], [place] [address] Mar, [facility] [address] [id number] [address] [place] [address], [place] [address] Mar, [facility] [address] [id number] [address] [place] [address], [place] [address] Mar, [facility] [address] [id number] [address] [place] [address], [place] [address] Mar, [facility] [address] [id number] [address] [place] [address], [place] [address] Mar, [facility] [address] [id number] [address] [place] [address], [place] [address] Mar, [facility] [address] [id number] [address] [place] [address], [place] [address] Mar, [facility] [address] [id number] [address] [place] [address], [place] [address] Mar, [facility] [address] [id number] [address] [place] [address], [place] [address] Feb, [facility] [address] [id number] [address] [place] [address], [place] [address] Feb, [facility] [address] [id number] [address] [place] [address], [place] [address] Feb, [facility] [address] [id number] [address] [place] [address], [place] [address] Feb, [facility] [address] [id number] [address] [place] [address], [place] [address] Feb, [facility] [address] [id number] [address] [place] [address], [place] [address] Jan, [facility] [address] [id number] [address] [place] [address], [place] [address] Dec, [facility] [address] [id number] [address] [place] [address], [place] [address] Dec, [facility] [address] [id number] [address] [place] [address], [place] [address] Dec, [facility] [address] [id number] [address] [place] [address], [place] [address] Nov, [facility] [address] [id number] [address] [place] [address], [place] [address] Nov, [facility] [address] [id number] [address] [place] [address], [place] [address] Nov, [facility] [address] [id number] [address] [place] [address], [place] [address] Oct, [facility] [address] [id number] [address] [place] [address], [place] [address] Oct, [facility] [address] [id number] [address] [place] [address], [place] [address] Oct, [facility] [address] [id number] [address] [place] [address], [place] [address] September, [facility] [address] [id number] [address] [place] [address], [place] [address] September, [facility] [address] [id number] [address] [place] [address], [place] [address] September, [facility] [address] [id number] [address] [place] [address], [place] [address] September, [facility] [address] [id number] [address] [place] [address], [place] [address] September, [facility] [address] [id number] [address] [place] [address], [place] [address] Aug, [facility] [address] [id number] [address] [place] [address], [place] [address] Aug, [facility] [address] [id number] [address] [place] [address], [place] [address] Aug, [facility] [address] [id number] [address] [place] [address], [place] [address] 28 Jul, 2012 [facility] [address] [id number] [address] [place] [address], [place] [address] Jul, [facility] [address] [id number] [address] [place] [address], [place] [address] Jul, [facility] [address] [id number] [address] [place] [address], [place] [address] Jul, [facility] [address] [id number] [address] [place] [address], [place] [address] Jul, [facility] [address] [id number] [address] [place] [address], [place] [address] Jul, [facility] [address] [id number] [address] [place] [address], [place] [address] Jul, [facility] [address] [id number] [address] [place] [address], [place] [address] May, [facility] [address] [id number] [address] [place] [address], [place] [address] May, [facility] [address] [id number] [address] [place] [address], [place] [address] May, [facility] [address] [id number] [address] [place] [address], [place] [address] Apr, [facility] [address] [id number] [address] [place] [address], [place] [address] Apr, [facility] [address] [id number] [address] [place] [address], [place] [address] 17 Apr, 2012 [facility] [address] [id number] [address] [place] [address], [place] [address] 17 Apr, 2012 [facility] [address] [id number] [address] [place] [address], [place] [address] Apr, [facility] [address] [id number] [address] [place] [address], [place] [address] 29 Mar, 2012 [facility] [address] [id number] [address] [place] [address], [place] [address] 29 Mar, 2012 [facility] [address] [id number] [address] [place] [address], [place] [address] Mar, [facility] [address] [id number] [address] [place] [address], [place] [address] Mar, [facility] [address] [id number] [address] [place] [address], [place] [address] Feb, [facility] [address] [id number] [address] [place] [address], [place] [address] Feb, [facility] [address] [id number] [address] [place] [address], [place] [address] Feb, [facility] [address] [id number] [address] [place] [address], [place] [address] Feb, [facility] [address] [id number] [address] [place] [address], [place] [address] Feb, [facility] [address] [id number] [address] [place] [address], [place] [address] Jan, [facility] [address] [id number] [address] [place] [address], [place] [address] Dec, [facility] [address] [id number] [address] [place] [address], [place] [address] Dec, [facility] [address] [id number] [address] [place] [address], [place] [address] Dec, [facility] [address] [id number] [address] [place] [address], [place] [address] Nov, [facility] [address] [id number] [address] [place] [address], [place] [address] Nov, [facility] [address] [id number] [address] [place] [address], [place] [address] Nov, [facility] [address] [id number] [address] [place] [address], [place] [address] Oct, [facility] [address] [id number] [address] [place] [address], [place] [address] Oct, [facility] [address] [id number] [address] [place] [address], [place] [address] Oct, [facility] [address] [id number] [address] [place] [address], [place] [address] Oct, [facility] [address] [id number] [address] [place] [address], [place] [address] September, [facility] [address] [id number] [address] [place] [address], [place] [address] September, [facility] [address] [id number] [address] [place] [address], [place] [address] Aug, [facility] [address] [id number] [address] [place] [address], [place] [address] Aug, [facility] [address] [id number] [address] [place] [address], [place] [address] Aug, [facility] [address] [id number] [address] [place] [address], [place] [address] Aug, [facility] [address] [id number] [address] [place] [address], [place] [address] Aug, [facility] [address] [id number] [address] [place] [address], [place] [address] Aug, [facility] [address] [id number] [address] [place] [address], [place] [address] Aug, [facility] [address] [id number] [address] [place] [address], [place] [address] Jul, [facility] [address] [id number] [address] [place] [address], [place] [address] Jul, [facility] [address] [id number] [address] [place] [address], [place] [address] Jul, [facility] [address] [id number] [address] [place] [address], [place] [address] May, [facility] [address] [id number] [address] [place] [address], [place] [address] May, [facility] [address] [id number] [address] [place] [address] May, [facility] [address] [id number] [address] [place] [address] Apr, [facility] [address] [id number] [address] [place] [address] Apr, [facility] [address] [id number] [address] [place] [address] Mar, [facility] [address] [id number] [address] [place] [address] Mar, [facility] [address] [id number] [address] [place] [address] Mar, [facility] [address] [id number] [address] [place] [address] Mar, [facility] [address] [id number] [address] [place] [address] Mar, [facility] [address] [id number] [address] [place] [address] Mar, [facility] [address] [id number] [address] [place] [id number] Feb, [facility] [address] [id number] [address] [place] [id number] Feb, [facility] [address] [id number] [address] [place] [address] Feb, IMMUNIZATIONS No Known Immunizations SOCIAL HISTORY [...] infections x 3 2016 Hospitalization History Gabriel bell - right big t oe removed 2019
--- OUTSIDE RECORDS SUMMARY | 2020-01-03 08:16 | XMS REPORT ---
Author Author Tra SILVERIO Organization [facility] Address [address] [place] [address] Care Team Providers Care Glassware Engraver Name Role Phone FERNY SILVERIO Unavailable PROBLEMS Type Condition ICD9-CM Code OVI06-SG Code Onset Dates Condition S tatus SNOMED Code Problem Hypertension I10 Active 4480542 3 Problem Hypoxia R09.02 Active 342868859 Problem COPD (chronic obstructive pulmonary disease) J44.9 Active 48392431 Problem Lumbar radiculopathy, chronic M54.16 Active 782132015 Problem MCC current use of insulin Z79.4 Active 663315238 Problem Recurrent major depressive disorder, in full remission F33.42 Active 865689765 Problem Hyperlipidemia, unspecified E78.5 Ac tive 45385346 Problem PAD (peripheral artery disease) I73.9 Active 615639366 Problem Type 2 diabetes mellitus with other specified complication E11.69 Active 337404509058 Problem Anxiety F41.9 Active 62214703 Problem Type 2 diabetes mellitus wit h diabetic peripheral angiopathy without gangrene E11.51 Active 375556322 Problem ED (erectile dysfunction) of organic origin N52.9 Active 603237587 Problem Arthritis M19.90 Active 3547706 Problem Morbid (severe) obesity due to excess calories E66 .01 Active 327296474 ALLERGIES No Information ENCOUNTERS Encounter Location Date Diagnosis [id number] [place] [address] September, Anxiety F41.9 [facility] [address] [id number] [address] Aug, [facility] [address] [facility] [id number] [address] [place] [phone] Aug, Back pain M54.9 and Lumbar r adiculopathy, chronic M54.16 [facility] [address] [facility] [id number] [address] [place] [id number] 10 Aug, 2019 Anxiety F41.9 ; Back pain M5 4.9 and Lumbar radiculopathy, chronic M54.16 [facility] [address] [id number] [address] [place] [phone] 09 Aug, 2019 Lumbar radiculopathy, chroni c M54.16 ; Anxiety F41.9 ; Type 2 diabetes mellitus with other specified complication E11.69 and Hypertension I10 [facility] [address] [id number] [address] [place] [phone] 30 Jul, 2019 [facility] [address] [id number] [address] [place] [phone] 27 Jul, 2019 Lumbar radiculopathy, chroni c M54.16 ; Back pain M54.9 and Anxiety F41.9 [facility] [address] [id number] [address] [place] [phone] 23 Jul, 2019 [facility] [address] [id number] [address] [place] [id number] 13 Jul, 2019 Anxiety F41.9 [facility] [address] [id number] [address] [place] [id number] 12 Jul, 2019 Anxiety F41.9 [facility] [address] [id number] [address] [place] [id number] 02 Jul, 2019 Back pain M54.9 [facility] [address] [id number] [address] [place] [id number] 02 Jul, 2019 Back pain M54.9 [facility] [address] [id number] [address] [place] [id number] Jul, Lumbar radiculopathy, chroni c M54.16 [facility] [address] [id number] [address] [place] [id number] 28 Jul, 2019 Back pain M54.9 [facility] [address] [facility] [id number] [address] [place] [phone] 07 Jul, 2019 Encounter for Medicare sam [...] complication E11.69 [facility] [address] [id number] [address] [place] [phone] 03 Jul, 2019 Back pain M54.9 [facility] [address] [id number] [address] [place] [phone] Jul, Anxiety F41.9 [facility] [address] [id number] [address] [place] [phone] May, [facility] [address] [id number] [address] [place] [phone] May, Lumbar radiculopathy, chroni c M54.16 [facility] [address] [id number] [address] [place] [id number] May, Back pain M54.9 [facility] [address] [id number] [address] [place] [phone] May, [place] [address] [id number] [address] [place] [phone] May, Back pain M54.9 and Anxiety F41.9 [facility] [address] [id number] [address] [place] [id number] May, [place] [address] [facility] [id number] [address] [place] [phone] May, Type 2 diabetes mellitus wit h diabetic peripheral angiopathy without gangrene E11.51 ; Arthritis M19.90 ; ED (erectile dysfunction) of organic origin N52.9 ; Morbid (severe) obesity due to excess calories E66.01 and Lumbar radiculopathy, chronic M54.16 [facility] [address] [id number] [address] [place] [phone] May, Diabetes E11.9 [facility] [address] [id number] [address] [place] [id number] Apr, [facility] [address] [id number] [address] [place] [id number] Apr, Back pain M54.9 [facility] [address] [id number] [address] [place] [phone] Apr, [facility] [address] [id number] [address] [place] [phone] Apr, Anxiety F41.9 [facility] [address] [id number] [address] [place] [phone] Apr, Back pain M54.9 and Lumbar r adiculopathy, chronic M54.16 [facility] [address] [id number] [address] [place] [phone] Apr, Back pain M54.9 ; Anxiety F4 1.9 and Lumbar radiculopathy, chronic M54.16 [facility] [address] [id number] [address] [place] [id number] Mar, [facility] [address] [id number] [address] [place] [phone] Mar, [facility] [address] [id number] [address] [place] [phone] Mar, Back pain M54.9 [facility] [address] [id number] [address] [place] [phone] Mar, [facility] [address] [facility] [id number] [address] [place] [id number] Feb, Type 2 diabetes mellitus wit h diabetic peripheral angiopathy without gangrene E11.51 ; Lumbar radiculopathy, chronic M54.16 ; ED (erectile dysfunction) of organic origin N52.9 ; Encounter for immunization Z23 ; COPD (chronic obstructive pulmonary disease) J44.9 and Anxiety F41.9 [facility] [address] [id number] [address] [place] [id number] Feb, Back pain M54.9 [facility] [address] [id number] [address] [place] [phone] Feb, [facility] [address] [id number] [address] [place] [phone] Feb, [facility] [address] [id number] [address] [place] [phone] Feb, [facility] [address] [id number] [address] [place] [phone] Feb, Back pain M54.9 [facility] [address] [id number] [address] [place] [phone] Feb, [facility] [address] [id number] [address] [place] [phone] Jan, Anxiety F41.9 [facility] [address] [id number] [address] [place] [phone] Jan, Anxiety F41.9 [facility] [address] [id number] [address] [place] [phone] Jan, [facility] [address] [id number] [address] [place] [phone] Jan, [facility] [address] [id number] [address] [place] [phone] Jan, Back pain M54.9 [facility] [address] [id number] [address] [place] [id number] Jan, [facility] [address] [id number] [address] [place] [id number] Dec, Acute non-recurrent frontal sinusitis J01.10 [facility] [address] [id number] [address] [place] [id number] Dec, Acute non-recurrent frontal sinusitis J01.10 [facility] [address] [id number] [address] [place] [phone] Dec, Type 2 diabetes mellitus wit h diabetic peripheral angiopathy without gangrene E11.51 ; Lumbar radiculopathy, chronic M54.16 ; Recurrent major depressive disorder, in full remission F33.42 and Anxiety F41.9 [facility] [address] [id number] [address] [place] [phone] Dec, [facility] [address] [id number] [address] [place] [phone] Nov, Anxiety F41.9 [facility] [address] [id number] [address] [place] [phone] Nov, [facility] [address] [id number] [address] [place] [phone] Nov, Back pain M54.9 [facility] [address] [id number] [address] [place] [phone] Nov, [facility] [address] [id number] [address] [place] [phone] Nov, Back pain M54.9 [facility] [address] [id number] [address] [place] [id number] Nov, Anxiety F41.9 [facility] [address] [id number] [address] [place] [phone] Nov, [facility] [address] [id number] [address] [place] [phone] Oct, Back pain M54.9 [facility] [address] [id number] [address] [place] [phone] Oct, [facility] [address] [id number] [address] [place] [phone] Oct, [facility] [address] [id number] [address] [place] [phone] Oct, [facility] [address] [id number] [address] [place] [phone] September, Back pain M54.9 [facility] [address] [id number] [address] [place] [phone] September, [facility] [address] [id number] [address] [place] [id number] September, [facility] [address] [id number] [address] [place] [phone] September, [facility] [address] [id number] [address] [place] [id number] Aug, Back pain M54.9 [facility] [address] [id number] [address] [place] [phone] Aug, Anxiety F41.9 [facility] [address] [id number] [address] [place] [phone] Aug, [facility] [address] [id number] [address] [place] [id number] Aug, Pressure ulcer of other site , stage 3 L89.893 and COPD (chronic obstructive pulmonary disease) J44.9 [facility] [address] [id number] [address] [place] [id number] Aug, History of smoking Z87.891 [facility] [address] [id number] [address] [place] [id number] Jul, Type 2 diabetes mellitus wit h diabetic peripheral angiopathy without gangrene E11.51 [facility] [address] [id number] [address] [place] [id number] Jul, Back pain M54.9 [facility] [address] [id number] [address] [place] [phone] Jul, Anxiety F41.9 [facility] [address] [facility] [id number] [address] [place] [phone] 18 Jul, 2018 [facility] [address] [id number] [address] [place] [phone] 13 Jul, 2018 Back pain M54.9 [facility] [address] [id number] [address] [place] [phone] Jul, Back pain M54.9 [facility] [address] [id number] [address] [place] [phone] Jul, Lumbar radiculopathy, chroni c M54.16 ; Hypertension I10 and Type 2 diabetes mellitus with diabetic peripheral angiopathy without gangrene E11.51 [facility] [address] [id number] [address] [place] [phone] Jul, Back pain M54.9 [facility] [address] [id number] [address] [place] [phone] Jul, Back pain M54.9 and Anxiety F41.9 [facility] [address] [id number] [address] [place] [phone] Jul, [facility] [address] [id number] [address] [place] [id number] May, Back pain M54.9 and Anxiety F41.9 [facility] [address] [id number] [address] [place] [phone] May, [facility] [address] [id number] [address] [place] [phone] Apr, Radiculopathy of lumbar rhiannon on M54.16 ; Back pain M54.9 and Anxiety F41.9 [facility] [address] [id number] [address] [place] [phone] Apr, Diabetes E11.9 ; Muscle spas m M62.838 and Lumbar radiculopathy, chronic M54.16 [facility] [address] [id number] [address] [place] [phone] Apr, [place] [address] [id number] [address] [place] [phone] Apr, [facility] [address] [id number] [address] [place] [phone] Mar, Back pain M54.9 and Anxiety F41.9 [facility] [address] [facility] [id number] [address] [place] [phone] Mar, [facility] [address] [id number] [address] [place] [id number] Mar, [facility] [address] [id number] [address] [place] [phone] Mar, [facility] [address] [facility] [id number] [address] [place] [phone] Mar, Encounter for immunization Z 23 [facility] [address] [facility] [id number] [address] [place] [id number] Feb, Back pain M54.9 and Anxiety F41.9 [facility] [address] [id number] [address] [place] [phone] 04 Feb, 2018 Back pain M54.9 and Anxiety F41.9 [facility] [address] [facility] [id number] [address] [place] [phone] 06 Jan, 2018 Back pain M54.9 and Anxiety F41.9 [facility] [address] [facility] [id number] [address] [place] [phone] Jan, [facility] [address] [id number] [address] [place] [phone] Dec, [facility] [address] [id number] [address] [place] [phone] Dec, Back pain M54.9 and Anxiety F41.9 [facility] [address] [facility] [id number] [address] [place] [phone] Dec, Diabetes E11.9 ; Type 2 diab etes mellitus with diabetic peripheral angiopathy without gangrene E11.51 ; Lumbar radiculopathy, chronic M54.16 ; COPD (chronic obstructive pulmonary disease) J44.9 and Anxiety F41.9 [facility] [address] [id number] [address] [place] [phone] Dec, Back pain M54.9 and Anxiety F41.9 [facility] [address] [id number] [address] [place] [phone] Nov, Back pain M54.9 and Anxiety F41.9 [facility] [address] [id number] [address] [place] [phone] Oct, [place] [address] [id number] [address] [place] [phone] Oct, Back pain M54.9 and Anxiety F41.9 [place] [address] [id number] [address] [place] [id number] September, Anxiety F41.9 and Back pain M54.9 [facility] [address] [id number] [address] [place] [phone] September, Diabetes E11.9 ; Hypertensio n I10 ; COPD (chronic obstructive pulmonary disease) J44.9 and Lumbar radiculopathy, chronic M54.16 [facility] [address] [id number] [address] [place] [id number] September, Anxiety F41.9 [facility] [address] [id number] [address] [place] [phone] Aug, [facility] [address] [id number] [address] [place] [phone] Aug, [facility] [address] [id number] [address] [place] [id number] Aug, Anxiety F41.9 and Back pain M54.9 [facility] [address] [id number] [address] [place] [phone] Aug, Medicare annual wellness vis it, initial [...] 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.4 [facility] [address] [id number] [address] [place] [phone] Jul, Back pain M54.9 [facility] [address] [id number] [address] [place] [id number] Jul, [facility] [address] [id number] [address] [place] [id number] Jul, Anxiety F41.9 and Back pain M54.9 [facility] [address] [id number] [address] [place] [phone] Jul, Diabetes E11.9 [facility] [address] [id number] [address] [place] [phone] May, [facility] [address] [id number] [address] [place] [phone] May, Diabetes E11.9 ; Anxiety F41 .9 ; Back pain M54.9 and COPD (chronic obstructive pulmonary disease) J44.9 [facility] [address] [id number] [address] [place] [phone] May, Back pain M54.9 [facility] [address] [id number] [address] [place] [phone] May, [facility] [address] [id number] [address] [place] [id number] Apr, Back pain M54.9 [facility] [address] [id number] [address] [place] [phone] Mar, Back pain M54.9 [facility] [address] [id number] [address] [place] [phone] 20 Mar, 2017 [facility] [address] [facility] [id number] [address] [place] [phone] 16 Mar, 2017 [facility] [address] [facility] [id number] [address] [place] [id number] 14 Mar, 2017 Radiculopathy of lumbar rhiannon on M54.16 [facility] [address] [facility] [id number] [place] [phone] 13 Mar, 2017 [facility] [address] [facility] [id number] [address] [place] [phone] 07 Mar, 2017 Encounter for immunization Z 23 and Lumbar radiculopathy, chronic M54.16 [facility] [address] [facility] [id number] [address] [place] [phone] Mar, Back pain M54.9 and Anxiety F41.9 [facility] [address] [facility] [id number] [address] [place] [phone] 10 Feb, 2017 Acute bilateral low back boy n with left-sided sciatica M54.42 and Acute bilateral low back pain with right-sided sciatica M54.41 [facility] [address] [facility] [id number] [address] [place] [id number] Feb, [facility] [address] [place] [id number] [address] [place] [id number] Feb, Back pain M54.9 [facility] [address] [facility] [id number] [address] [place] [phone] 05 Jan, 2017 Back pain M54.9 and Anxiety F41.9 [facility] [address] [facility] [id number] [address] [place] [phone] 05 Jan, 2017 Diabetes E11.9 [facility] [address] [facility] [id number] [address] [place] [phone] 14 Dec, 2016 Diabetes E11.9 ; Back pain M 54.9 ; Anxiety F41.9 and Insulin long- term use Z79.4 [place] [address] [id number] [address] [place] [phone] Dec, Anxiety F41.9 [facility] [address] [id number] [address] [place] [phone] Dec, Back pain M54.9 [facility] [address] [id number] [address] [place] [id number] Nov, Back pain M54.9 [facility] [address] [id number] [address] [place] [phone] Oct, Back pain M54.9 and Anxiety F41.9 [facility] [address] [id number] [address] [place] [phone] September, Back pain M54.9 [facility] [address] [id number] [address] [place] [phone] September, Back pain M54.9 and Anxiety F41.9 [facility] [address] [id number] [address] [place] [id number] Aug, Diabetes E11.9 ; Anxiety F41 .9 ; Back pain M54.9 and PAD (peripheral artery disease) I73.9 [facility] [address] [id number] [address] [place] [phone] Aug, Anxiety F41.9 [facility] [address] [id number] [address] [place] [phone] Aug, Back pain M54.9 [facility] [address] [id number] [address] [place] [phone] Jul, Back pain M54.9 [facility] [address] [id number] [address] [place] [phone] Jul, Back pain M54.9 [facility] [address] [id number] [address] [place] [phone] Jul, Back pain M54.9 [facility] [address] [id number] [address] [place] [phone] 16 Jul, 2016 Dorsalgia M54.9 [facility] [address] [id number] [address] [place] [phone] 14 Jul, 2016 [facility] [address] [id number] [address] [place] [phone] May, Back pain M54.9 [facility] [address] [id number] [address] [place] [phone] May, Diabetes E11.9 ; Anxiety F41 .9 ; Port catheter in place Z95.828 ; Encounter for immunization Z23 and Insulin long-term use Z79.4 [facility] [address] [id number] [address] [place] [phone] Apr, Back pain M54.9 [facility] [address] [id number] [address] [place] [id number] Apr, Back pain M54.9 [facility] [address] [id number] [address] [place] [phone] Apr, [facility] [address] [id number] [address] [place] [phone] Apr, Back pain M54.9 [facility] [address] [id number] [address] [place] [id number] Mar, COPD (chronic obstructive pu lmonary disease) J44.9 [facility] [address] [id number] [address] [place] [phone] Feb, [facility] [address] [id number] [address] [place] [phone] 30 Jan, 2016 [facility] [address] [id number] [address] [place] [phone] 20 Jan, 2016 [facility] [address] [id number] [address] [place] [phone] 07 Jan, 2016 [facility] [address] [id number] [address] [place] [phone] Jan, [facility] [address] [id number] [address] [place] [phone] Dec, Diabetes E11.9 ; Hypoxia R09 .02 and Back pain M54.9 [facility] [address] [id number] [address] [place] [id number] Dec, [facility] [address] [id number] [address] [place] [phone] Nov, [facility] [address] [id number] [address] [place] [phone] Oct, Anxiety F41.9 [facility] [address] [id number] [address] [place] [phone] Oct, Back pain M54.9 [facility] [address] [id number] [address] [place] [phone] September, Back pain M54.9 [facility] [address] [id number] [address] [place] [id number] September, Diabetes E11.9 [facility] [address] [id number] [address] [place] [phone] September, [facility] [address] [id number] [address] [place] [phone] September, Diabetes E11.9 ; Insulin sarai g-term use Z79.4 and Back pain M54.9 [facility] [address] [id number] [address] [place] [id number] Aug, Back pain M54.9 [facility] [address] [id number] [address] [place] [id number] Aug, Back pain M54.9 ; Anxiety F4 1.9 and Arthropathy, unspecified M12.9 [facility] [address] [id number] [address] [place] [id number] Jul, Back pain M54.9 [facility] [address] [facility] [id number] [address] [place] [id number] Jul, Anxiety F41.9 [facility] [address] [facility] [id number] [address] [place] [id number] Jul, Back pain M54.9 [facility] [address] [facility] [id number] [address] [place] [id number] Jul, [facility] [address] [facility] [id number] [address] [place] [phone] Jul, [facility] [address] [facility] [id number] [address] [place] [id number] May, Back pain M54.9 ; Diabetes E 11.9 ; Insulin long-term use Z79.4 ; COPD (chronic obstructive pulmonary disease) J44.9 and Hypertension I10 [facility] [address] [facility] [id number] [address] [place] [id number] May, Chronic pain G89.29 [facility] [address] [facility] [id number] [address] [place] [phone] Apr, [facility] [address] [facility] [id number] [address] [place] [phone] Apr, [facility] [address] [facility] [id number] [address] [place] [id number] Mar, [facility] [address] [facility] [id number] [address] [place] [phone] Mar, Encounter for immunization Z 23 and Diabetes E11.9 [facility] [address] [facility] [id number] [address] [place] [phone] Feb, [facility] [address] [facility] [id number] [address] [place] [phone] Feb, [facility] [address] [facility] [id number] [address] [place] [phone] Jan, [facility] [address] [facility] [id number] [address] [place] [phone] Jan, [facility] [address] [id number] [address] [place] [id number] Dec, [facility] [address] [id number] [address] [place] [id number] Dec, [facility] [address] [id number] [address] [place] [id number] Dec, Unspecified arthropathy, sit e unspecified 716.90 and Diabetes mellitus type 2, uncontrolled 250.02 [facility] [address] [id number] [address] [place] [phone] Dec, [facility] [address] [id number] [address] [place] [id number] Nov, [facility] [address] [id number] [address] [place] [phone] Oct, [facility] [address] [id number] [address] [place] [id number] September, [facility] [address] [id number] [address] [place] [phone] September, [facility] [address] [id number] [address] [place] [phone] September, [facility] [address] [id number] [address] [place] [phone] September, [facility] [address] [id number] [address] [place] [id number] Aug, [facility] [address] [id number] [address] [place] [phone] Aug, [facility] [address] [id number] [address] [place] [id number] Jul, [facility] [address] [id number] [address] [place] [phone] Jul, [facility] [address] [id number] [address] [place] [id number] 16 Jul, 2014 [facility] [address] [id number] [address] [place] [address], [place] [address] 16 Jul, 2014 [facility] [address] [id number] [address] [place] [address], [place] [address] 16 Jul, 2014 [facility] [address] [id number] [address] [place] [address], [place] [address] 16 Jul, 2014 [facility] [address] [id number] [address] [place] [address], [place] [address] 16 Jul, 2014 [facility] [address] [id number] [address] [place] [address], [place] [address] 16 Jul, 2014 [facility] [address] [id number] [address] [place] [address], [place] [address] 16 Jul, 2014 [facility] [address] [id number] [address] [place] [address], [place] [address] 13 Jul, 2014 [facility] [address] [id number] [address] [place] [address], [place] [address] 13 Jul, 2014 [facility] [address] [id number] [address] [place] [address], [place] [address] 09 Jul, 2014 [facility] [address] [id number] [address] [place] [address], [place] [address] 09 Jul, 2014 [facility] [address] [id number] [address] [place] [address], [place] [address] 17 Jul, 2014 [facility] [address] [id number] [address] [place] [address], [place] [address] 17 Jul, 2014 [facility] [address] [id number] [address] [place] [address], [place] [address] 16 Jul, 2014 [facility] [address] [id number] [address] [place] [address], [place] [address] 16 Jul, 2014 [facility] [address] [id number] [address] [place] [address], [place] [address] 16 Jul, 2014 [facility] [address] [id number] [address] [place] [address], [place] [address] 16 Jul, 2014 [facility] [address] [id number] [address] [place] [address], [place] [address] 16 Jul, 2014 [facility] [address] [id number] [address] [place] [address], [place] [address] 16 Jul, 2014 [facility] [address] [id number] [address] [place] [address], [place] [address] Jul, 2014 [facility] [address] [id number] [address] [place] [address], [place] [address] Jul, 2014 [facility] [address] [id number] [address] [place] [address], [place] [address] Jul, 2014 [facility] [address] [id number] [address] [place] [address], [place] [address] 16 Jul, 2014 [facility] [address] [id number] [address] [place] [address], [place] [address] Jul, 2014 [facility] [address] [id number] [address] [place] [address], [place] [address] Jul, 2014 [facility] [address] [id number] [address] [place] [address], [place] [address] 16 Jul, 2014 [facility] [address] [id number] [address] [place] [address], [place] [address] Jul, [facility] [address] [id number] [address] [place] [address], [place] [address] May, [facility] [address] [id number] [address] [place] [address], [place] [address] May, [facility] [address] [id number] [address] [place] [address], [place] [address] May, [facility] [address] [id number] [address] [place] [address], [place] [address] May, [facility] [address] [id number] [address] [place] [address], [place] [address] May, [facility] [address] [id number] [address] [place] [address], [place] [address] May, [facility] [address] [id number] [address] [place] [address], [place] [address] May, [facility] [address] [id number] [address] [place] [address], [place] [address] May, [facility] [address] [id number] [address] [place] [address], [place] [address] May, [facility] [address] [id number] [address] [place] [address], [place] [address] May, [facility] [address] [id number] [address] [place] [address], [place] [address] Apr, [facility] [address] [id number] [address] [place] [address], [place] [address] Apr, [facility] [address] [id number] [address] [place] [address], [place] [address] Apr, [facility] [address] [id number] [address] [place] [address], [place] [address] Apr, [facility] [address] [id number] [address] [place] [address], [place] [address] Apr, [facility] [address] [id number] [address] [place] [address], [place] [address] Apr, [facility] [address] [id number] [address] [place] [address], [place] [address] Mar, [facility] [address] [id number] [address] [place] [address], [place] [address] Mar, [facility] [address] [id number] [address] [place] [address], [place] [address] Mar, [facility] [address] [id number] [address] [place] [address], [place] [address] Mar, [facility] [address] [id number] [address] [place] [address], [place] [address] Mar, [facility] [address] [id number] [address] [place] [address], [place] [address] Mar, [facility] [address] [id number] [address] [place] [address], [place] [address] Mar, [facility] [address] [id number] [address] [place] [address], [place] [address] Mar, [facility] [address] [id number] [address] [place] [address], [place] [address] Mar, [facility] [address] [id number] [address] [place] [address], [place] [address] Mar, [facility] [address] [id number] [address] [place] [address], [place] [address] Mar, [facility] [address] [id number] [address] [place] [address], [place] [address] Feb, [facility] [address] [id number] [address] [place] [address], [place] [address] 30 Feb, 2014 [facility] [address] [id number] [address] [place] [id number] Feb, [facility] [address] [id number] [address] [place] [id number] 15 Feb, 2014 [facility] [address] [id number] [address] [place] [id number] Feb, [facility] [address] [id number] [address] [place] [address], [place] [address] Feb, [facility] [address] [id number] [address] [place] [id number] Feb, [facility] [address] [id number] [address] [place] [id number] Feb, [facility] [address] [id number] [address] [place] [id number] Feb, [facility] [address] [id number] [address] [place] [address], [place] [address] Feb, [facility] [address] [id number] [address] [place] [address], [place] [address] Jan, [facility] [address] [id number] [address] [place] [address], [place] [address] Jan, [facility] [address] [id number] [address] [place] [address], [place] [address] Jan, [facility] [address] [id number] [address] [place] [address], [place] [address] Jan, [facility] [address] [id number] [address] [place] [address], [place] [address] Jan, [facility] [address] [id number] [address] [place] [address], [place] [address] Jan, [facility] [address] [id number] [address] [place] [address], [place] [address] Jan, [facility] [address] [id number] [address] [place] [address], [place] [address] Dec, [facility] [address] [id number] [address] [place] [address], [place] [address] Dec, [facility] [address] [id number] [address] [place] [address], [place] [address] Dec, [facility] [address] [id number] [address] [place] [address], [place] [address] Dec, [facility] [address] [id number] [address] [place] [address], [place] [address] Dec, [facility] [address] [id number] [address] [place] [address], [place] [address] Dec, [facility] [address] [id number] [address] [place] [address], [place] [address] Dec, [facility] [address] [id number] [address] [place] [address], [place] [address] Dec, [facility] [address] [id number] [address] [place] [address], [place] [address] Oct, [facility] [address] [id number] [address] [place] [address], [place] [address] Oct, [facility] [address] [id number] [address] [place] [address], [place] [address] September, [facility] [address] [id number] [address] [place] [address], [place] [address] September, [facility] [address] [id number] [address] [place] [address], [place] [address] September, [facility] [address] [id number] [address] [place] [address], [place] [address] September, [facility] [address] [id number] [address] [place] [address], [place] [address] September, [facility] [address] [id number] [address] [place] [address], [place] [address] September, [facility] [address] [id number] [address] [place] [address], [place] [address] September, [facility] [address] [id number] [address] [place] [address], [place] [address] Aug, [facility] [address] [id number] [address] [place] [address], [place] [address] Aug, [facility] [address] [id number] [address] [place] [address], [place] [address] Jul, [facility] [address] [id number] [address] [place] [address], [place] [address] Jul, [facility] [address] [id number] [address] [place] [address], [place] [address] Jul, [facility] [address] [id number] [address] [place] [address], [place] [address] Jul, 2013 [facility] [address] [id number] [address] [place] [address], [place] [address] 14 Jul, 2013 [facility] [address] [id number] [address] [place] [address], [place] [address] 14 Jul, 2013 [facility] [address] [id number] [address] [place] [address], [place] [address] Jul, [facility] [address] [id number] [address] [place] [address], [place] [address] Jul, [facility] [address] [id number] [address] [place] [address], [place] [address] May, [facility] [address] [id number] [address] [place] [address], [place] [address] May, [facility] [address] [id number] [address] [place] [address], [place] [address] May, [facility] [address] [id number] [address] [place] [address], [place] [address] May, [facility] [address] [id number] [address] [place] [address], [place] [address] Apr, [facility] [address] [id number] [address] [place] [address], [place] [address] Mar, [facility] [address] [id number] [address] [place] [address], [place] [address] Mar, [facility] [address] [id number] [address] [place] [address], [place] [address] Mar, [facility] [address] [id number] [address] [place] [address], [place] [address] Mar, [facility] [address] [id number] [address] [place] [address], [place] [address] Mar, [facility] [address] [id number] [address] [place] [address], [place] [address] Mar, [facility] [address] [id number] [address] [place] [address], [place] [address] Mar, [facility] [address] [id number] [address] [place] [address], [place] [address] Mar, [facility] [address] [id number] [address] [place] [address], [place] [address] Mar, [facility] [address] [id number] [address] [place] [address], [place] [address] Mar, [facility] [address] [id number] [address] [place] [address], [place] [address] Mar, [facility] [address] [id number] [address] [place] [address], [place] [address] Mar, [facility] [address] [id number] [address] [place] [address], [place] [address] Feb, [facility] [address] [id number] [address] [place] [address], [place] [address] Feb, [facility] [address] [id number] [address] [place] [address], [place] [address] Feb, [facility] [address] [id number] [address] [place] [address], [place] [address] Feb, [facility] [address] [id number] [address] [place] [address], [place] [address] Feb, [facility] [address] [id number] [address] [place] [address], [place] [address] Jan, [facility] [address] [id number] [address] [place] [address], [place] [address] Dec, [facility] [address] [id number] [address] [place] [address], [place] [address] Dec, [facility] [address] [id number] [address] [place] [address], [place] [address] Dec, [facility] [address] [id number] [address] [place] [address], [place] [address] Nov, [facility] [address] [id number] [address] [place] [address], [place] [address] Nov, [facility] [address] [id number] [address] [place] [address], [place] [address] Nov, [facility] [address] [id number] [address] [place] [address], [place] [address] Oct, [facility] [address] [id number] [address] [place] [address], [place] [address] Oct, [facility] [address] [id number] [address] [place] [address], [place] [address] Oct, [facility] [address] [id number] [address] [place] [address], [place] [address] September, [facility] [address] [id number] [address] [place] [address], [place] [address] September, [facility] [address] [id number] [address] [place] [address], [place] [address] September, [facility] [address] [id number] [address] [place] [address], [place] [address] September, [facility] [address] [id number] [address] [place] [address], [place] [address] September, [facility] [address] [id number] [address] [place] [address], [place] [address] Aug, [facility] [address] [id number] [address] [place] [address], [place] [address] Aug, [facility] [address] [id number] [address] [place] [address], [place] [address] Aug, [facility] [address] [id number] [address] [place] [address], [place] [address] 28 Jul, 2012 [facility] [address] [id number] [address] [place] [address], [place] [address] Jul, [facility] [address] [id number] [address] [place] [address], [place] [address] Jul, [facility] [address] [id number] [address] [place] [address], [place] [address] Jul, [facility] [address] [id number] [address] [place] [address], [place] [address] Jul, [facility] [address] [id number] [address] [place] [address], [place] [address] Jul, [facility] [address] [id number] [address] [place] [address], [place] [address] Jul, [facility] [address] [id number] [address] [place] [address], [place] [address] May, [facility] [address] [id number] [address] [place] [address], [place] [address] May, [facility] [address] [id number] [address] [place] [address], [place] [address] May, [facility] [address] [id number] [address] [place] [address], [place] [address] Apr, [facility] [address] [id number] [address] [place] [address], [place] [address] Apr, [facility] [address] [id number] [address] [place] [address], [place] [address] 17 Apr, 2012 [facility] [address] [id number] [address] [place] [address], [place] [address] 17 Apr, 2012 [facility] [address] [id number] [address] [place] [address], [place] [address] Apr, [facility] [address] [id number] [address] [place] [address], [place] [address] 29 Mar, 2012 [facility] [address] [id number] [address] [place] [address], [place] [address] 29 Mar, 2012 [facility] [address] [id number] [address] [place] [address], [place] [address] Mar, [facility] [address] [id number] [address] [place] [address], [place] [address] Mar, [facility] [address] [id number] [address] [place] [address], [place] [address] Feb, [facility] [address] [id number] [address] [place] [address], [place] [address] Feb, [facility] [address] [id number] [address] [place] [address], [place] [address] Feb, [facility] [address] [id number] [address] [place] [address], [place] [address] Feb, [facility] [address] [id number] [address] [place] [address], [place] [address] Feb, [facility] [address] [id number] [address] [place] [address], [place] [address] Jan, [facility] [address] [id number] [address] [place] [address], [place] [address] Dec, [facility] [address] [id number] [address] [place] [address], [place] [address] Dec, [facility] [address] [id number] [address] [place] [address], [place] [address] Dec, [facility] [address] [id number] [address] [place] [address], [place] [address] Nov, [facility] [address] [id number] [address] [place] [place] [address], [place] [address] Nov, [facility] [address] [id number] [address] [place] [address], [place] [address] Nov, [facility] [address] [id number] [address] [place] [address], [place] [address] Oct, [facility] [address] [id number] [address] [place] [address], [place] [address] Oct, [facility] [address] [id number] [address] [place] [address], [place] [address] Oct, [facility] [address] [id number] [address] [place] [address], [place] [address] Oct, [facility] [address] [id number] [address] [place] [address], [place] [address] September, [facility] [address] [id number] [address] [place] [address], [place] [address] September, [facility] [address] [id number] [address] [place] [address], [place] [address] Aug, [facility] [address] [id number] [address] [place] [address], [place] [address] Aug, [facility] [address] [id number] [address] [place] [address], [place] [address] Aug, [facility] [address] [id number] [address] [place] [address], [place] [address] Aug, [facility] [address] [id number] [address] [place] [address], [place] [address] Aug, [facility] [address] [id number] [address] [place] [address], [place] [address] Aug, [facility] [address] [id number] [address] [place] [address], [place] [address] Aug, [facility] [address] [id number] [address] [place] [address], [place] [address] Jul, [facility] [address] [id number] [address] [place] [address], [place] [address] Jul, [facility] [address] [id number] [address] [place] [address], [place] [address] Jul, [facility] [address] [id number] [address] [place] [address], [place] [address] May, [facility] [address] [id number] [address] [place] [address], [place] [address] May, [facility] [address] [id number] [address] [place] [id number] May, [facility] [address] [id number] [address] [place] [id number] Apr, [facility] [address] [id number] [address] [place] [id number] Apr, [facility] [address] [id number] [address] [place] [id number] Mar, [facility] [address] [id number] [address] [place] [id number] Mar, [facility] [address] [id number] [address] [place] [id number] Mar, [facility] [address] [id number] [address] [place] [id number] Mar, [facility] [address] [id number] [address] [place] [id number] Mar, [facility] [address] [id number] [address] [place] [id number] Mar, [facility] [address] [id number] [address] [place] [id number] Feb, [facility] [address] [id number] [address] [place] [id number] Feb, [facility] [address] [id number] [address] [place] [id number] Feb, IMMUNIZATIONS No Known Immunizations SOCIAL HISTORY [...]
--- OUTSIDE RECORDS SUMMARY | 2020-01-03 08:17 | XMS REPORT ---
Author Author Tra SILVERIO Organization [facility], [place] Address [address] [place] [address] Care Team Providers Care [employer] Professor Name Role Phone FERNY SILVERIO Unavailable PROBLEMS Type Condition ICD9-CM Code KLY56-XQ Code Onset Dates Condition S tatus SNOMED Code Problem Hypertension I10 Active 9066028 3 Problem Hypoxia R09.02 Active 291940577 Problem COPD (chronic obstructive pulmonary disease) J44.9 Active 31723182 Problem Lumbar radiculopathy, chronic M54.16 Active 839976259 Problem half-way current use of insulin Z79.4 Active 521680187 Problem Recurrent major depressive disorder, in full remission F33.42 Active 627895962 Problem Hyperlipidemia, unspecified E78.5 Ac tive 95192192 Problem PAD (peripheral artery disease) I73.9 Active 010178017 Problem Type 2 diabetes mellitus with other specified complication E11.69 Active 989192654177 Problem Anxiety F41.9 Active 32327740 Problem Type 2 diabetes mellitus wit h diabetic peripheral angiopathy without gangrene E11.51 Active 294086026 Problem ED (erectile dysfunction) of organic origin N52.9 Active 736531883 Problem Arthritis M19.90 Active 3755112 Problem Morbid (severe) obesity due to excess calories E66 .01 Active 377649854 ALLERGIES No Information ENCOUNTERS Encounter Location Date Diagnosis [facility] [id number] [place] [address] Aug, [facility] [place] [address] [facility] [id number] [address] [place] [phone] 24 Aug, 2019 Back pain M54.9 and Lumbar r adiculopathy, chronic M54.16 [facility] [place] [address] [facility] [id number] [address] [place] [phone] Aug, Anxiety F41.9 ; Back pain M5 4.9 and Lumbar radiculopathy, chronic M54.16 [facility] [place] [address] [id number] [address] [place] [id number] 09 Aug, 2019 Lumbar radiculopathy, chroni c M54.16 ; Anxiety F41.9 ; Type 2 diabetes mellitus with other specified complication E11.69 and Hypertension I10 [facility] [place] [address] [id number] [address] [place] [id number] 30 Jul, 2019 [facility] [place] [address] [id number] [address] [place] [phone] 27 Jul, 2019 Lumbar radiculopathy, chroni c M54.16 ; Back pain M54.9 and Anxiety F41.9 [facility] [place] [address] [id number] [address] [place] [phone] 23 Jul, 2019 [facility] [place] [address] [id number] [address] [place] [phone] 13 Jul, 2019 Anxiety F41.9 [facility] [place] [address] [id number] [address] [place] [id number] 12 Jul, 2019 Anxiety F41.9 [facility] [place] [address] [id number] [address] [place] [phone] 02 Jul, 2019 Back pain M54.9 [facility] [place] [address] [id number] [address] [place] [phone] 02 Jul, 2019 Back pain M54.9 [facility] [place] [address] [id number] [address] [place] [phone] 28 Jul, 2019 Lumbar radiculopathy, chroni c M54.16 [facility] [place] [address] [id number] [address] [place] [phone] 28 Jul, 2019 Back pain M54.9 [facility] [place] [address] [id number] [address] [place] [id number] 07 Jul, 2019 [facility] Z[facility].00 ; COPD (chronic [...] diabetes mellitus with other specified complication E11.69 [facility] [place] [address] [id number] [address] [place] [id number] Jul, Back pain M54.9 [facility] [place] [address] [id number] [address] [place] [address] Jul, Anxiety F41.9 [place] [address] [id number] [address] [place] [phone] May, [place] [address] [id number] [address] [place] [phone] May, Lumbar radiculopathy, chroni c M54.16 [place] [address] [id number] [address] [place] [address] May, Back pain M54.9 [place] [address] [id number] [address] [place] [phone] May, [place] [address] [facility] [id number] [address] [place] [phone] May, Back pain M54.9 and Anxiety F41.9 [place] [address] [facility] [id number] [address] [place] [address] May, [place] [address] [id number] [address] [place] [address] May, Type 2 diabetes mellitus wit h diabetic peripheral angiopathy without gangrene E11.51 ; Arthritis M19.90 ; ED (erectile dysfunction) of organic origin N52.9 ; Morbid (severe) obesity due to excess calories E66.01 and Lumbar radiculopathy, chronic M54.16 [place] [address] [id number] [address] [place] [address] May, Diabetes E11.9 [facility] [place] [address] [id number] [address] [place] [address] Apr, [facility] [place] [address] [id number] [address] [place] [address] Apr, Back pain M54.9 [facility] [place] [address] [id number] [address] [place] [phone] Apr, [facility] [place] [address] [id number] [address] [place] [phone] Apr, Anxiety F41.9 [facility] [place] [address] [id number] [address] [place] [id number] Apr, Back pain M54.9 and Lumbar r adiculopathy, chronic M54.16 [facility] [place] [address] [facility] [id number] [address] [place] [address] Apr, Back pain M54.9 ; Anxiety F4 1.9 and Lumbar radiculopathy, chronic M54.16 [facility] [place] [address] [facility] [id number] [address] [place] [phone] Mar, [facility] [place] [address] [facility] [id number] [address] [place] [phone] Mar, [facility] [place] [address] [facility] [id number] [address] [place] [address] Mar, Back pain M54.9 [facility] [place] [address] [facility] [id number] [address] [place] [phone] Mar, [facility] [place] [address] [facility] [id number] [address] [place] [phone] Feb, Type 2 diabetes mellitus wit h diabetic peripheral angiopathy without gangrene E11.51 ; Lumbar radiculopathy, chronic M54.16 ; ED (erectile dysfunction) of organic origin N52.9 ; Encounter for immunization Z23 ; COPD (chronic obstructive pulmonary disease) J44.9 and Anxiety F41.9 [facility] [place] [address] [id number] [address] [place] [address] Feb, Back pain M54.9 [facility] [place] [address] [id number] [address] [place] [phone] Feb, [facility] [address] [id number] [address] [place] [phone] Feb, [facility] [place] [address] [id number] [address] [place] [id number] Feb, [facility] [place] [address] [id number] [address] [place] [phone] Feb, Back pain M54.9 [facility] [place] [address] [id number] [address] [place] [phone] Feb, [facility] [place] [address] [id number] [address] [place] [id number] Jan, Anxiety F41.9 [facility] [place] [address] [id number] [address] [place] [phone] Jan, Anxiety F41.9 [facility] [place] [address] [id number] [address] [place] [phone] Jan, [facility] [place] [address] [id number] [address] [place] [phone] Jan, [facility] [place] [address] [id number] [address] [place] [address] Jan, Back pain M54.9 [facility] [place] [address] [id number] [address] [place] [phone] Jan, [facility] [place] [address] [id number] [address] [place] [id number] Dec, Acute non-recurrent frontal sinusitis J01.10 [facility] [place] [address] [id number] [address] [place] [phone] Dec, Acute non-recurrent frontal sinusitis J01.10 [facility] [place] [address] [id number] [address] [place] [address] Dec, Type 2 diabetes mellitus wit h diabetic peripheral angiopathy without gangrene E11.51 ; Lumbar radiculopathy, chronic M54.16 ; Recurrent major depressive disorder, in full remission F33.42 and Anxiety F41.9 [facility] [place] [address] [id number] [address] [place] [phone] Dec, [facility] [place] [address] [id number] [address] [place] [phone] Nov, Anxiety F41.9 [facility] [place] [address] [id number] [address] [place] [phone] Nov, [facility] [place] [address] [id number] [address] [place] [id number] Nov, Back pain M54.9 [facility] [place] [address] [id number] [address] [place] [address] Nov, [facility] [place] [address] [id number] [address] [place] [phone] Nov, Back pain M54.9 [facility] [place] [address] [id number] [address] [place] [id number] Nov, Anxiety F41.9 [facility] [place] [address] [id number] [address] [place] [phone] Nov, [facility] [place] [address] [id number] [address] [place] [phone] Oct, Back pain M54.9 [facility] [place] [address] [id number] [address] [place] [id number] Oct, [facility] [place] [address] [id number] [address] [place] [phone] Oct, [facility] [place] [address] [id number] [address] [place] [phone] Oct, [facility] [place] [address] [id number] [address] [place] [phone] September, Back pain M54.9 [facility] [place] [address] [id number] [address] [place] [id number] September, [facility] [place] [address] [id number] [address] [place] [phone] September, [facility] [place] [address] [id number] [address] [place] [phone] September, [facility] [place] [address] [id number] [address] [place] [phone] Aug, Back pain M54.9 [facility] [place] [address] [id number] [address] [place] [phone] Aug, Anxiety F41.9 [facility] [place] [address] [id number] [address] [place] [phone] Aug, [facility] [place] [address] [id number] [address] [place] [phone] Aug, Pressure ulcer of other site , stage 3 L89.893 and COPD (chronic obstructive pulmonary disease) J44.9 [facility] [place] [address] [id number] [address] [place] [address] Aug, History of smoking Z87.891 [facility] [place] [address] [id number] [address] [place] [phone] Jul, Type 2 diabetes mellitus wit h diabetic peripheral angiopathy without gangrene E11.51 [facility] [place] [address] [id number] [address] [place] [id number] Jul, Back pain M54.9 [facility] [place] [address] [id number] [address] [place] [phone] Jul, Anxiety F41.9 [facility] [place] [address] [id number] [address] [place] [phone] Jul, [facility] [place] [address] [id number] [address] [place] [id number] Jul, Back pain M54.9 [facility] [place] [address] [id number] [address] [place] [address] Jul, Back pain M54.9 [facility] [place] [address] [id number] [address] [place] [address] Jul, Lumbar radiculopathy, chroni c M54.16 ; Hypertension I10 and Type 2 diabetes mellitus with diabetic peripheral angiopathy without gangrene E11.51 [facility] [place] [address] [id number] [address] [place] [id number] Jul, Back pain M54.9 [facility] [place] [address] [id number] [address] [place] [address] Jul, Back pain M54.9 and Anxiety F41.9 [place] [address] [id number] [address] [place] [phone] Jul, [facility] [place] [address] [id number] [address] [place] [address] May, Back pain M54.9 and Anxiety F41.9 [place] [address] [id number] [address] [place] [phone] May, [facility] [place] [address] [id number] [address] [place] [phone] Apr, Radiculopathy of lumbar rhiannon on M54.16 ; Back pain M54.9 and Anxiety F41.9 [facility] [place] [address] [id number] [address] [place] [phone] Apr, Diabetes E11.9 ; Muscle spas m M62.838 and Lumbar radiculopathy, chronic M54.16 [facility] [place] [address] [id number] [address] [place] [address] Apr, [facility] [place] [address] [id number] [address] [place] [address] Apr, [facility] [place] [address] [id number] [address] [place] [phone] 30 Mar, 2018 Back pain M54.9 and Anxiety F41.9 [facility] [place] [address] [id number] [address] [place] [phone] Mar, [facility] [place] [address] [facility] [id number] [address] [place] [phone] Mar, [facility] [place] [address] [id number] [address] [place] [address] Mar, [facility] [place] [address] [facility] [id number] [address] [place] [phone] Mar, Encounter for immunization Z 23 [facility] [place] [address] [facility] [id number] [address] [place] [id number] 31 Feb, 2018 Back pain M54.9 and Anxiety F41.9 [place] [address] [facility] [id number] [address] [place] [phone] 04 Feb, 2018 Back pain M54.9 and Anxiety F41.9 [place] [address] [facility] [id number] [address] [place] [phone] 06 Jan, 2018 Back pain M54.9 and Anxiety F41.9 [place] [address] [facility] [id number] [address] [place] [id number] 06 Jan, 2018 [place] [address] [facility] [id number] [address] [place] [phone] Dec, [facility] [place] [address] [facility] [id number] [address] [place] [phone] Dec, Back pain M54.9 and Anxiety F41.9 [place] [address] [facility] [id number] [address] [place] [id number] 13 Dec, 2017 Diabetes E11.9 ; Type 2 diab etes mellitus with diabetic peripheral angiopathy without gangrene E11.51 ; Lumbar radiculopathy, chronic M54.16 ; COPD (chronic obstructive pulmonary disease) J44.9 and Anxiety F41.9 [place] [address] [id number] [address] [place] [phone] Dec, Back pain M54.9 and Anxiety F41.9 [facility] [place] [address] [facility] [id number] [address] [place] [phone] Nov, Back pain M54.9 and Anxiety F41.9 [facility] [place] [address] [facility] [id number] [address] [place] [phone] Oct, [facility] [place] [address] [facility] [id number] [address] [place] [address] Oct, Back pain M54.9 and Anxiety F41.9 [place] [address] [facility] [id number] [address] [place] [address] September, Anxiety F41.9 and Back pain M54.9 [place] [address] [facility] [id number] [address] [place] [address] September, Diabetes E11.9 ; Hypertensio n I10 ; COPD (chronic obstructive pulmonary disease) J44.9 and Lumbar radiculopathy, chronic M54.16 [place] [address] [facility] [id number] [address] [place] [phone] September, Anxiety F41.9 [place] [address] [facility] [id number] [address] [place] [phone] Aug, [facility] [place] [address] [facility] [id number] [address] [place] [id number] Aug, [facility] [place] [address] [facility] [id number] [address] [place] [address] Aug, Anxiety F41.9 and Back pain M54.9 [place] [address] [facility] [id number] [address] [place] [address] Aug, Medicare annual wellness vis it, initial Z00.00 ; COPD (chronic obstructive pulmonary disease) J44.9 ; PAD (peripheral artery disease) I73.9 ; Insulin long-term use Z79.4 ; Hypertension I10 ; Anxiety F41.9 ; Recurrent major depressive disorder, in full remission F33.42 ; Pressure ulcer of other site, stage 3 L89.893 ; Type 2 diabetes mellitus with diabetic peripheral angiopathy without gangrene E11.51 and half-way current use of insulin Z79.4 [facility] [place] [address] [id number] [address] [place] [phone] Jul, Back pain M54.9 [facility] [place] [address] [id number] [address] [place] [phone] Jul, [facility] [place] [address] [id number] [address] [place] [phone] Jul, Anxiety F41.9 and Back pain M54.9 [facility] [place] [address] [id number] [address] [place] [phone] Jul, Diabetes E11.9 [facility] [place] [address] [id number] [address] [place] [phone] May, [facility] [place] [address] [id number] [address] [place] [phone] May, Diabetes E11.9 ; Anxiety F41 .9 ; Back pain M54.9 and COPD (chronic obstructive pulmonary disease) J44.9 [facility] [place] [address] [id number] [address] [place] [id number] May, Back pain M54.9 [facility] [place] [address] [id number] [address] [place] [id number] May, [facility] [place] [address] [id number] [address] [place] [address] Apr, Back pain M54.9 [facility] [place] [address] [id number] [address] [place] [phone] Mar, Back pain M54.9 [facility], [place] [address] [id number] [address] [place] [id number] Mar, [facility], [place] [address] [id number] [address] [place] [id number] 16 Mar, 2017 [facility], [place] [address] [id number] [address] [place] [id number] 14 Mar, 2017 Radiculopathy of lumbar rhiannon on M54.16 [facility], [place] [address] [id number] [address] [place] [phone] 13 Mar, 2017 [facility], [place] [address] [facility] [id number] [address] [place] [phone] 07 Mar, 2017 Encounter for immunization Z 23 and Lumbar radiculopathy, chronic M54.16 [facility], [place] [address] [id number] [address] [place] [id number] 01 Mar, 2017 Back pain M54.9 and Anxiety F41.9 [facility] [address] [id number] [address] [place] [id number] 10 Feb, 2017 Acute bilateral low back boy n with left-sided sciatica M54.42 and Acute bilateral low back pain with right-sided sciatica M54.41 [facility], [place] [address] [id number] [address] [place] [phone] Feb, [facility], [place] [address] [id number] [address] [place] [id number] Feb, Back pain M54.9 [facility], [place] [address] [id number] [address] [place] [id number] 05 Jan, 2017 Back pain M54.9 and Anxiety F41.9 [facility], [place] [address] [id number] [address] [place] [id number] 05 Jan, 2017 Diabetes E11.9 [facility], [place] [address] [id number] [address] [place] [phone] Dec, Diabetes E11.9 ; Back pain M 54.9 ; Anxiety F41.9 and Insulin long- term use Z79.4 [facility], [place] [address] [id number] [address] [place] [phone] Dec, Anxiety F41.9 [facility] [address] [id number] [address] [place] [address] Dec, Back pain M54.9 [facility] [place] [address] [id number] [address] [place] [address] Nov, Back pain M54.9 [facility] [place] [address] [id number] [address] [place] [address] Oct, Back pain M54.9 and Anxiety F41.9 [facility] [place] [address] [id number] [address] [place] [address] September, Back pain M54.9 [facility] [place] [address] [id number] [address] [place] [address] September, Back pain M54.9 and Anxiety F41.9 [facility] [place] [address] [id number] [address] [place] [address] Aug, Diabetes E11.9 ; Anxiety F41 .9 ; Back pain M54.9 and PAD (peripheral artery disease) I73.9 [facility], [place] [address] [id number] [address] [place] [address] Aug, Anxiety F41.9 [facility] [place] [address] [id number] [address] [place] [address] 14 Aug, 2016 Back pain M54.9 [facility] [place] [address] [id number] [address] [place] [address] Jul, Back pain M54.9 [facility] [place] [address] [id number] [address] [place] [id number] 13 Jul, 2016 Back pain M54.9 [facility] [place] [address] [id number] [address] [place] [id number] 23 Jul, 2016 Back pain M54.9 [facility] [place] [address] [id number] [address] [place] [address] 16 Jul, 2016 Dorsalgia M54.9 [facility] [place] [address] [id number] [address] [place] [address] 14 Jul, 2016 [facility] [place] [address] [id number] [address] [place] [address] May, Back pain M54.9 [facility] [place] [address] [id number] [address] [place] [address] May, Diabetes E11.9 ; Anxiety F41 .9 ; Port catheter in place Z95.828 ; Encounter for immunization Z23 and Insulin long-term use Z79.4 [facility], [place] [address] [id number] [address] [place] [address] Apr, Back pain M54.9 [facility] [place] [address] [id number] [address] [place] [address] Apr, Back pain M54.9 [facility] [place] [address] [id number] [address] [place] [address] Apr, [facility] [place] [address] [id number] [address] [place] [address] Apr, Back pain M54.9 [facility] [place] [address] [id number] [address] [place] [address] Mar, COPD (chronic obstructive pu lmonary disease) J44.9 [facility] [place] [address] [id number] [address] [place] [address] Feb, [facility] [place] [address] [id number] [address] [place] [id number] 30 Jan, 2016 [facility] [place] [address] [id number] [address] [place] [address] Jan, [facility] [place] [address] [id number] [address] [place] [address] Jan, [facility] [place] [address] [id number] [address] [place] [address] Jan, [facility] [place] [address] [id number] [address] [place] [address] Dec, Diabetes E11.9 ; Hypoxia R09 .02 and Back pain M54.9 [facility], [place] [address] [id number] [address] [place] [address] Dec, [facility], [place] [address] [id number] [address] [place] [address] Nov, [facility], [place] [address] [id number] [address] [place] [address] Oct, Anxiety F41.9 [facility], [place] [address] [id number] [address] [place] [address] Oct, Back pain M54.9 [facility], [place] [address] [id number] [address] [place] [address] September, Back pain M54.9 [facility] [place] [address] [id number] [address] [place] [address] September, Diabetes E11.9 [facility], [place] [address] [id number] [address] [place] [address] September, [facility] [place] [address] [id number] [address] [place] [address] September, Diabetes E11.9 ; Insulin sarai g-term use Z79.4 and Back pain M54.9 [facility] [place] [address] [id number] [address] [place] [address] Aug, Back pain M54.9 [facility] [place] [address] [id number] [address] [place] [address] Aug, Back pain M54.9 ; Anxiety F4 1.9 and Arthropathy, unspecified M12.9 [facility] [place] [address] [id number] [address] [place] [address] Jul, Back pain M54.9 [facility] [place] [address] [facility] [id number] [address] [place] [address] Jul, Anxiety F41.9 [facility], [place] [address] [facility] [id number] [address] [place] [address] Jul, Back pain M54.9 [facility], [place] [address] [facility] [id number] [address] [place] [address] Jul, [facility], [place] [address] [facility] [id number] [address] [place] [address] Jul, [facility], [place] [address] [facility] [id number] [address] [place] [address] May, Back pain M54.9 ; Diabetes E 11.9 ; Insulin long-term use Z79.4 ; COPD (chronic obstructive pulmonary disease) J44.9 and Hypertension I10 [facility] [place] [address] [facility] [id number] [address] [place] [address] May, Chronic pain G89.29 [facility], [place] [address] [facility] [id number] [address] [place] [address] Apr, [facility], [place] [address] [facility] [id number] [address] [place] [address] Apr, [facility], [place] [address] [facility] [id number] [address] [place] [address] Mar, [facility], [place] [address] [facility] [id number] [address] [place] [address] Mar, Encounter for immunization Z 23 and Diabetes E11.9 [facility], [place] [address] [facility] [id number] [address] [place] [id number] Feb, [facility], [place] [address] [facility] [id number] [address] [place] [address] Feb, [facility], [place] [address] [facility] [id number] [address] [place] [phone] Jan, [facility], [place] [address] [facility] [id number] [address] [place] [phone] Jan, [facility], [place] [address] [facility] [id number] [address] [place] [phone] Dec, [facility] [address] [id number] [address] [place] [address], [place] [address] Dec, [facility] [address] [id number] [address] [place] [address], [place] [address] Dec, Unspecified arthropathy, sit e unspecified 716.90 and Diabetes mellitus type 2, uncontrolled 250.02 [facility] [address] [id number] [address] [place] [address], [place] [address] Dec, [facility] [address] [id number] [address] [place] [address], [place] [address] Nov, [facility] [address] [id number] [address] [place] [address], [place] [address] Oct, [facility] [address] [id number] [address] [place] [address], [place] [address] September, [facility] [address] [id number] [address] [place] [address], [place] [address] September, [facility] [address] [id number] [address] [place] [address], [place] [address] September, [facility] [address] [id number] [address] [place] [address], [place] [address] September, [facility] [address] [id number] [address] [place] [address], [place] [address] Aug, [facility] [address] [id number] [address] [place] [address], [place] [address] Aug, [facility] [address] [id number] [address] [place] [address], [place] [address] Jul, [facility] [address] [id number] [address] [place] [address], [place] [address] Jul, [facility] [address] [id number] [address] [place] [id number] [address], [address] [facility] [address] [id number] [address] [place] [id number] 16 Jul, 2014 [facility] [address] [id number] [facility] [place] [address] 16 Jul, 2014 [facility] [address] [id number] [address] [place] [address], [place] [address] 16 Jul, 2014 [facility] [address] [id number] [address] [place] [address], [place] [address] 16 Jul, 2014 [facility] [address] [id number] [address] [place] [address], [place] [address] 16 Jul, 2014 [facility] [address] [id number] [address] [place] [address], [place] [address] 16 Jul, 2014 [facility] [address] [id number] [address] [place] [address], [place] [address] 13 Jul, 2014 [facility] [address] [id number] [address] [place] [address], [place] [address] 13 Jul, 2014 [facility] [address] [id number] [address] [place] [address], [place] [address] 09 Jul, 2014 [facility] [address] [id number] [address] [place] [address], [place] [address] 09 Jul, 2014 [facility] [address] [id number] [address] [place] [address], [place] [address] 17 Jul, 2014 [facility] [address] [id number] [address] [place] [address], [place] [address] 17 Jul, 2014 [facility] [address] [id number] [address] [place] [address], [place] [address] 16 Jul, 2014 [facility] [address] [id number] [address] [place] [address], [place] [address] 16 Jul, 2014 [facility] [address] [id number] [address] [place] [address], [place] [address] 16 Jul, 2014 [facility] [address] [id number] [address] [place] [address], [place] [address] 16 Jul, 2014 [facility] [address] [id number] [address] [place] [address], [place] [address] 16 Jul, 2014 [facility] [address] [id number] [address] [place] [address], [place] [address] Jul, 2014 [facility] [address] [id number] [address] [place] [address], [place] [address] 16 Jul, 2014 [facility] [address] [id number] [address] [place] [address], [place] [address] 16 Jul, 2014 [facility] [address] [id number] [address] [place] [address], [place] [address] 16 Jul, 2014 [facility] [address] [id number] [address] [place] [address], [place] [address] Jul, 2014 [facility] [address] [id number] [address] [place] [address], [place] [address] Jul, 2014 [facility] [address] [id number] [address] [place] [address], [place] [address] Jul, 2014 [facility] [address] [id number] [address] [place] [address], [place] [address] Jul, 2014 [facility] [address] [id number] [address] [place] [address], [place] [address] Jul, 2014 [facility] [address] [id number] [address] [place] [address], [place] [address] May, [facility] [address] [id number] [address] [place] [address], [place] [address] May, [facility] [address] [id number] [address] [place] [address], [place] [address] May, [facility] [address] [id number] [address] [place] [address], [place] [address] May, [facility] [address] [id number] [address] [place] [address], [place] [address] May, [facility] [address] [id number] [address] [place] [address] [place] [address] May, [facility] [address] [id number] [address] [place] [address], [place] [address] May, [facility] [address] [id number] [address] [place] [address], [place] [address] May, [facility] [address] [id number] [address] [place] [address], [place] [address] May, [facility] [address] [id number] [address] [place] [address], [place] [address] May, [facility] [address] [id number] [address] [place] [address], [place] [address] Apr, [facility] [address] [id number] [address] [place] [address], [place] [address] Apr, [facility] [address] [id number] [address] [place] [address], [place] [address] Apr, [facility] [address] [id number] [address] [place] [address], [place] [address] Apr, [facility] [address] [id number] [address] [place] [address], [place] [address] Apr, [facility] [address] [id number] [address] [place] [address], [place] [address] Apr, [facility] [address] [id number] [address] [place] [address], [place] [address] Mar, [facility] [address] [id number] [address] [place] [address], [place] [address] Mar, [facility] [address] [id number] [address] [place] [address], [place] [address] Mar, [facility] [address] [id number] [address] [place] [address], [place] [address] Mar, [facility] [address] [id number] [address] [place] [address], [place] [address] Mar, [facility] [address] [id number] [address] [place] [address], [place] [address] Mar, [facility] [address] [id number] [address] [place] [address], [place] [address] Mar, [facility] [address] [id number] [address] [place] [address], [place] [address] Mar, [facility] [address] [id number] [address] [place] [address], [place] [address] Mar, [facility] [address] [id number] [address] [place] [address], [place] [address] Mar, [facility] [address] [id number] [address] [place] [address], [place] [address] Mar, [facility] [address] [id number] [address] [place] [address], [place] [address] Feb, [facility] [address] [id number] [address] [place] [address], [place] [address] Feb, [facility] [address] [id number] [address] [place] [address], [place] [address] Feb, [facility] [address] [id number] [address] [place] [address], [place] [address] Feb, [facility] [address] [id number] [address] [place] [address], [place] [address] Feb, [facility] [address] [id number] [address] [place] [address], [place] [address] Feb, [facility] [address] [id number] [address] [place] [address], [place] [address] Feb, [facility] [address] [id number] [address] [place] [address], [place] [address] Feb, [facility] [address] [id number] [address] [place] [address], [place] [address] Feb, [facility] [address] [id number] [address] [place] [address], [place] [address] Feb, [facility] [address] [id number] [facility] [place] [address] Jan, [facility] [address] [id number] [address] [place] [address], [place] [address] Jan, [facility] [address] [id number] [address] [place] [address], [place] [address] Jan, [facility] [address] [id number] [address] [place] [address], [place] [address] 16 Jan, 2014 [facility] [address] [id number] [address] [place] [address], [place] [address] Jan, [facility] [address] [id number] [address] [place] [address], [place] [address] Jan, [facility] [address] [id number] [address] [place] [address], [place] [address] Jan, [facility] [address] [id number] [address] [place] [address], [place] [address] Dec, [facility] [address] [id number] [address] [place] [address], [place] [address] Dec, [facility] [address] [id number] [address] [place] [address], [place] [address] Dec, [facility] [address] [id number] [address] [place] [address], [place] [address] Dec, [facility] [address] [id number] [address] [place] [address], [place] [address] Dec, [facility] [address] [id number] [address] [place] [address], [place] [address] Dec, [facility] [address] [id number] [address] [place] [address], [place] [address] Dec, [facility] [address] [id number] [address] [place] [address], [place] [address] Dec, [facility] [address] [id number] [address] [place] [address], [place] [address] Oct, [facility] [address] [id number] [address] [place] [address], [place] [address] Oct, [facility] [address] [id number] [address] [place] [address], [place] [address] September, [facility] [address] [id number] [address] [place] [address], [place] [address] September, [facility] [address] [id number] [address] [place] [address], [place] [address] September, [facility] [address] [id number] [address] [place] [address], [place] [address] September, [facility] [address] [id number] [address] [place] [address], [place] [address] September, [facility] [address] [id number] [address] [place] [address], [place] [address] September, [facility] [address] [id number] [address] [place] [address], [place] [address] September, [facility] [address] [id number] [address] [place] [address], [place] [address] Aug, [facility] [address] [id number] [address] [place] [address], [place] [address] Aug, [facility] [address] [id number] [address] [place] [address], [place] [address] Jul, [facility] [address] [id number] [address] [place] [address], [place] [address] Jul, [facility] [address] [id number] [address] [place] [address], [place] [address] Jul, [facility] [address] [id number] [address] [place] [address], [place] [address] 17 Jul, 2013 [facility] [address] [id number] [address] [place] [address], [place] [address] 14 Jul, 2013 [facility] [address] [id number] [address] [place] [address], [place] [address] 14 Jul, 2013 [facility] [address] [id number] [address] [place] [address], [place] [address] 03 Jul, 2013 [facility] [address] [id number] [address] [place] [address], [place] [address] Jul, [facility] [address] [id number] [address] [place] [address], [place] [address] 15 May, 2013 [facility] [address] [id number] [address] [place] [address], [place] [address] 15 May, 2013 [facility] [address] [id number] [address] [place] [address], [place] [address] May, [facility] [address] [id number] [address] [place] [address], [place] [address] May, [facility] [address] [id number] [address] [place] [address], [place] [address] 18 Apr, 2013 [facility] [address] [id number] [address] [place] [address], [place] [address] Mar, [facility] [address] [id number] [address] [place] [address], [place] [address] Mar, [facility] [address] [id number] [address] [place] [address], [place] [address] Mar, [facility] [address] [id number] [address] [place] [address], [place] [address] Mar, [facility] [address] [id number] [address] [place] [address], [place] [address] Mar, [facility] [address] [id number] [address] [place] [address], [place] [address] 18 Mar, 2013 [facility] [address] [id number] [address] [place] [address], [place] [address] Mar, [facility] [address] [id number] [address] [place] [address], [place] [address] Mar, [facility] [address] [id number] [address] [place] [address], [place] [address] Mar, [facility] [address] [id number] [address] [place] [address], [place] [address] Mar, [facility] [address] [id number] [address] [place] [address], [place] [address] Mar, [facility] [address] [id number] [address] [place] [address], [place] [address] Mar, [facility] [address] [id number] [address] [place] [address], [place] [address] Feb, [facility] [address] [id number] [address] [place] [address], [place] [address] Feb, [facility] [address] [id number] [address] [place] [address], [place] [address] Feb, [facility] [address] [id number] [address] [place] [address], [place] [address] Feb, [facility] [address] [id number] [address] [place] [address], [place] [address] Feb, [facility] [address] [address] [id number] [address] [place] [address], [place] [address] Jan, [facility] [address] [id number] [address] [place] [address], [place] [address] Dec, [facility] [address] [id number] [address] [place] [address], [place] [address] Dec, [facility] [address] [id number] [address] [place] [address], [place] [address] Dec, [facility] [address] [id number] [address] [place] [address], [place] [address] Nov, [facility] [address] [id number] [address] [place] [address], [place] [address] Nov, [facility] [address] [id number] [address] [place] [address], [place] [address] Nov, [facility] [address] [id number] [address] [place] [address], [place] [address] Oct, [facility] [address] [id number] [address] [place] [address], [place] [address] Oct, [facility] [address] [id number] [address] [place] [address], [place] [address] Oct, [facility] [address] [id number] [address] [place] [address], [place] [address] September, [facility] [address] [id number] [address] [place] [address], [place] [address] September, [facility] [address] [id number] [address] [place] [address], [place] [address] September, [facility] [address] [id number] [address] [place] [address], [place] [address] September, [facility] [address] [id number] [address] [place] [address], [place] [address] September, [facility] [address] [id number] [address] [place] [address], [place] [address] Aug, [facility] [address] [id number] [address] [place] [address], [place] [address] Aug, [facility] [address] [id number] [address] [place] [address], [place] [address] Aug, [facility] [address] [id number] [address] [place] [address], [place] [address] Jul, [facility] [address] [id number] [address] [place] [address], [place] [address] Jul, [facility] [address] [id number] [address] [place] [address], [place] [address] Jul, [facility] [address] [id number] [address] [place] [address], [place] [address] Jul, [facility] [address] [id number] [address] [place] [address], [place] [address] Jul, [facility] [address] [id number] [address] [place] [address], [place] [address] Jul, [facility] [address] [id number] [address] [place] [address], [place] [address] Jul, [facility] [address] [id number] [address] [place] [address], [place] [address] 14 May, 2012 [facility] [address] [id number] [address] [place] [address], [place] [address] May, [facility] [address] [id number] [address] [place] [address], [place] [address] May, [facility] [address] [id number] [address] [place] [address], [place] [address] Apr, [facility] [address] [id number] [address] [place] [address], [place] [address] Apr, [facility] [address] [id number] [address] [place] [address], [place] [address] Apr, [facility] [address] [id number] [address] [place] [address], [place] [address] 17 Apr, 2012 [facility] [address] [id number] [address] [place] [address], [place] [address] Apr, [facility] [address] [id number] [address] [place] [address], [place] [address] 29 Mar, 2012 [facility] [address] [id number] [address] [place] [address], [place] [address] 29 Mar, 2012 [facility] [address] [id number] [address] [place] [address], [place] [address] 15 Mar, 2012 [facility] [address] [id number] [address] [place] [address], [place] [address] 15 Mar, 2012 [facility] [address] [id number] [address] [place] [address], [place] [address] Feb, [facility] [address] [id number] [address] [place] [address], [place] [address] Feb, [facility] [address] [id number] [address] [place] [address], [place] [address] Feb, [facility] [address] [id number] [address] [place] [address], [place] [address] Feb, [facility] [address] [id number] [address] [place] [address], [place] [address] Feb, [facility] [address] [id number] [address] [place] [address], [place] [address] Jan, [facility] [address] [id number] [address] [place] [address], [place] [address] Dec, [facility] [address] [id number] [address] [place] [address], [place] [address] Dec, [facility] [address] [id number] [address] [place] [address], [place] [address] Dec, [facility] [address] [id number] [address] [place] [address], [place] [address] Nov, [facility] [address] [id number] [address] [place] [address], [place] [address] Nov, [facility] [address] [id number] [address] [place] [address], [place] [address] Nov, [facility] [address] [id number] [address] [place] [address], [place] [address] Oct, [facility] [address] [id number] [address] [place] [address], [place] [address] Oct, [facility] [address] [id number] [address] [place] [address], [place] [address] Oct, [facility] [address] [id number] [address] [place] [address], [place] [address] Oct, [facility] [address] [id number] [address] [place] [address], [place] [address] September, [facility] [address] [id number] [address] [place] [address], [place] [address] September, [facility] [address] [id number] [address] [place] [address], [place] [address] Aug, [facility] [address] [id number] [address] [place] [address], [place] [address] Aug, [facility] [address] [id number] [address] [place] [address], [place] [address] Aug, [facility] [address] [id number] [address] [place] [address], [place] [address] Aug, [facility] [address] [id number] [address] [place] [address], [place] [address] Aug, [facility] [address] [id number] [address] [place] [address], [place] [address] Aug, [facility] [address] [id number] [address] [place] [address], [place] [address] Aug, [facility] [address] [id number] [address] [place] [address], [place] [address] Jul, [facility] [address] [id number] [address] [place] [address], [place] [address] Jul, [facility] [address] [id number] [address] [place] [address], [place] [address] Jul, [facility] [address] [id number] [address] [place] [address], [place] [address] May, [facility] [address] [id number] [address] [place] [address], [place] [address] May, [facility] [address] [id number] [address] [place] [address], [place] [address] May, [facility] [address] [id number] [address] [place] [address] Apr, [facility] [place] [address] [id number] [address] [place] [address] Apr, [facility] [place] [address] [id number] [address] [place] [address] Mar, [facility] [place] [address] [id number] [address] [place] [address] Mar, [facility] [place] [address] [id number] [address] [place] [address] Mar, [facility] [place] [address] [id number] [address] [place] [address] Mar, [facility] [place] [address] [id number] [address] [place] [address] Mar, [facility] [place] [address] [id number] [address] [place] [address] Mar, [facility] [place] [address] [id number] [address] [place] [address] Feb, [facility] [place] [address] [id number] [address] [place] [address] Feb, [facility] [place] [address] [id number] [address] [place] [address] Feb, IMMUNIZATIONS No Known Immunizations SOCIAL HISTORY [...] infections x 3 2016 Hospitalization History [facility] - right big t oe removed 2019
--- OUTSIDE RECORDS SUMMARY | 2020-01-03 08:17 | XMS REPORT ---
Author Author Tra SILVERIO Organization [facility] Address [address] [place] [address] Care Team Providers Care Insurance Risk Analyst Name Role Phone FERNY SILVERIO Unavailable PROBLEMS Type Condition ICD9-CM Code [id number] Code Onset Dates Condition S tatus SNOMED Code Problem Hypertension I10 Active 5808150 3 Problem Hypoxia R09.02 Active 706943299 Problem COPD (chronic obstructive pulmonary disease) J44.9 Active 66512350 Problem Lumbar radiculopathy, chronic M54.16 Active 201921329 Problem USP current use of insulin Z79.4 Active 436365601 Problem Recurrent major depressive disorder, in full remission F33.42 Active 506622054 Problem Hyperlipidemia, unspecified E78.5 Ac tive 31750754 Problem PAD (peripheral artery disease) I73.9 Active 201535298 Problem Type 2 diabetes mellitus with other specified complication E11.69 Active 346242956434 Problem Anxiety F41.9 Active 47149485 Problem Type 2 diabetes mellitus wit h diabetic peripheral angiopathy without gangrene E11.51 Active 467745877 Problem ED (erectile dysfunction) of organic origin N52.9 Active 655380885 Problem Arthritis M19.90 Active 9341119 Problem Morbid (severe) obesity due to excess calories E66 .01 Active 469828798 ALLERGIES No Information ENCOUNTERS Encounter Location Date Diagnosis [facility] [id number] [address] Aug, [facility] [address] [facility] [id number] [address] [place] [id number] 24 Aug, 2019 Back pain M54.9 and Lumbar r adiculopathy, chronic M54.16 [facility] [address] [facility] [id number] [address] [place] [id number] Aug, Anxiety F41.9 ; Back pain M5 4.9 and Lumbar radiculopathy, chronic M54.16 [facility] [address] [id number] [address] [place] [phone] 09 Aug, 2019 Lumbar radiculopathy, chroni c M54.16 ; Anxiety F41.9 ; Type 2 diabetes mellitus with other specified complication E11.69 and Hypertension I10 [facility] [address] [id number] [address] [place] [id number] 30 Jul, 2019 [facility] [address] [id number] [address] [place] [id number] 27 Jul, 2019 Lumbar radiculopathy, chroni c M54.16 ; Back pain M54.9 and Anxiety F41.9 [facility] [address] [id number] [address] [place] [id number] 23 Jul, 2019 [facility] [address] [id number] [address] [place] [id number] 13 Jul, 2019 Anxiety F41.9 [facility] [address] [id number] [address] [place] [id number] 12 Jul, 2019 Anxiety F41.9 [facility] [address] [id number] [address] [place] [id number] 02 Jul, 2019 Back pain M54.9 [facility] [address] [id number] [address] [place] [id number] 02 Jul, 2019 Back pain M54.9 [facility] [address] [id number] [address] [place] [id number] 28 Jul, 2019 Lumbar radiculopathy, chroni c M54.16 [facility] [address] [id number] [address] [place] [id number] 28 Jul, 2019 Back pain M54.9 [facility] [address] [id number] [address] [place] [id number] 07 Jul, 2019 [facility] Z00.00 ; COPD (chronic [...] diabetes mellitus with other specified complication E11.69 [facility] [address] [id number] [address] [place] [id number] Jul, Back pain M54.9 [facility] [address] [id number] [address] [place] [id number] Jul, Anxiety F41.9 [facility] [address] [id number] [address] [place] [id number] May, [place] [address] [id number] [address] [place] [id number] May, Lumbar radiculopathy, chroni c M54.16 [place] [address] [id number] [address] [place] [id number] May, Back pain M54.9 [place] [address] [id number] [address] [place] [id number] May, [facility] [address] [facility] [id number] [address] [place] [id number] May, Back pain M54.9 and Anxiety F41.9 [place] [address] [facility] [id number] [address] [place] [id number] May, [place] [address] [id number] [address] [place] [id number] May, Type 2 diabetes mellitus wit h diabetic peripheral angiopathy without gangrene E11.51 ; Arthritis M19.90 ; ED (erectile dysfunction) of organic origin N52.9 ; Morbid (severe) obesity due to excess calories E66.01 and Lumbar radiculopathy, chronic M54.16 [place] [address] [id number] [address] [place] [phone] May, Diabetes E11.9 [facility] [address] [id number] [address] [place] [id number] Apr, [facility] [address] [id number] [address] [place] [id number] Apr, Back pain M54.9 [facility] [address] [id number] [address] [place] [id number] Apr, [facility] [address] [id number] [address] [place] [id number] Apr, Anxiety F41.9 [facility] [address] [id number] [address] [place] [id number] Apr, Back pain M54.9 and Lumbar r adiculopathy, chronic M54.16 [facility] [address] [facility] [id number] [address] [place] [id number] Apr, Back pain M54.9 ; Anxiety F4 1.9 and Lumbar radiculopathy, chronic M54.16 [facility] [address] [facility] [id number] [address] [place] [id number] Mar, [facility] [address] [facility] [id number] [address] [place] [id number] Mar, [facility] [address] [facility] [id number] [address] [place] [id number] Mar, Back pain M54.9 [facility] [address] [facility] [id number] [address] [place] [id number] Mar, [facility] [address] [facility] [id number] [address] [place] [phone] Feb, Type 2 diabetes mellitus wit h diabetic peripheral angiopathy without gangrene E11.51 ; Lumbar radiculopathy, chronic M54.16 ; ED (erectile dysfunction) of organic origin N52.9 ; Encounter for immunization Z23 ; COPD (chronic obstructive pulmonary disease) J44.9 and Anxiety F41.9 [facility] [address] [id number] [address] [place] [id number] Feb, Back pain M54.9 [facility] [address] [id number] [address] [place] [id number] Feb, [facility] [address] [id number] [address] [place] [id number] Feb, [facility] [address] [id number] [address] [place] [id number] Feb, [facility] [address] [id number] [address] [place] [id number] Feb, Back pain M54.9 [facility] [address] [id number] [address] [place] [id number] Feb, [facility] [address] [id number] [address] [place] [id number] Jan, Anxiety F41.9 [facility] [address] [id number] [address] [place] [id number] Jan, Anxiety F41.9 [facility] [address] [id number] [address] [place] [id number] Jan, [facility] [address] [id number] [address] [place] [id number] Jan, [facility] [address] [id number] [address] [place] [phone] Jan, Back pain M54.9 [facility] [address] [id number] [address] [place] [id number] Jan, [facility] [address] [id number] [address] [place] [id number] Dec, Acute non-recurrent frontal sinusitis J01.10 [facility] [address] [id number] [address] [place] [id number] Dec, Acute non-recurrent frontal sinusitis J01.10 [facility] [address] [id number] [address] [place] [phone] Dec, Type 2 diabetes mellitus wit h diabetic peripheral angiopathy without gangrene E11.51 ; Lumbar radiculopathy, chronic M54.16 ; Recurrent major depressive disorder, in full remission F33.42 and Anxiety F41.9 [facility] [address] [id number] [address] [place] [id number] Dec, [facility] [address] [id number] [address] [place] [id number] Nov, Anxiety F41.9 [facility] [address] [id number] [address] [place] [id number] Nov, [facility] [address] [id number] [address] [place] [id number] Nov, Back pain M54.9 [facility] [address] [id number] [address] [place] [id number] Nov, [facility] [address] [id number] [address] [place] [id number] Nov, Back pain M54.9 [facility] [address] [id number] [address] [place] [id number] Nov, Anxiety F41.9 [facility] [address] [id number] [address] [place] [id number] Nov, [facility] [address] [id number] [address] [place] [id number] Oct, Back pain M54.9 [facility] [address] [id number] [address] [place] [id number] Oct, [facility] [address] [id number] [address] [place] [phone] Oct, [facility] [address] [id number] [address] [place] [id number] Oct, [facility] [address] [id number] [address] [place] [id number] September, Back pain M54.9 [facility] [address] [id number] [address] [place] [id number] September, [facility] [address] [id number] [address] [place] [id number] September, [facility] [address] [id number] [address] [place] [id number] September, [facility] [address] [id number] [address] [place] [address] Aug, Back pain M54.9 [facility] [address] [id number] [address] [place] [id number] Aug, Anxiety F41.9 [facility] [address] [id number] [address] [place] [id number] Aug, [facility] [address] [id number] [address] [place] [id number] Aug, Pressure ulcer of other site , stage 3 L89.893 and COPD (chronic obstructive pulmonary disease) J44.9 [facility] [address] [id number] [address] [place] [id number] Aug, History of smoking Z87.891 [facility] [address] [id number] [address] [place] [id number] Jul, Type 2 diabetes mellitus wit h diabetic peripheral angiopathy without gangrene E11.51 [facility] [address] [id number] [address] [place] [id number] Jul, Back pain M54.9 [facility] [address] [id number] [address] [place] [id number] Jul, Anxiety F41.9 [facility] [address] [id number] [address] [place] [id number] Jul, [facility] [address] [id number] [address] [place] [id number] Jul, Back pain M54.9 [facility] [address] [id number] [address] [place] [id number] Jul, Back pain M54.9 [facility] [address] [id number] [address] [place] [id number] Jul, Lumbar radiculopathy, chroni c M54.16 ; Hypertension I10 and Type 2 diabetes mellitus with diabetic peripheral angiopathy without gangrene E11.51 [facility] [address] [id number] [address] [place] [id number] Jul, Back pain M54.9 [facility] [address] [id number] [address] [place] [id number] Jul, Back pain M54.9 and Anxiety F41.9 [place] [address] [id number] [address] [place] [id number] Jul, [facility] [address] [id number] [address] [place] [id number] May, Back pain M54.9 and Anxiety F41.9 [place] [address] [id number] [address] [place] [id number] May, [facility] [address] [id number] [address] [place] [id number] Apr, Radiculopathy of lumbar rhiannon on M54.16 ; Back pain M54.9 and Anxiety F41.9 [facility] [address] [id number] [address] [place] [id number] Apr, Diabetes E11.9 ; Muscle spas m M62.838 and Lumbar radiculopathy, chronic M54.16 [facility] [address] [id number] [address] [place] [id number] Apr, [facility] [address] [id number] [address] [place] [id number] Apr, [facility] [address] [id number] [address] [place] [id number] 30 Mar, 2018 Back pain M54.9 and Anxiety F41.9 [facility] [address] [id number] [address] [place] [id number] Mar, [facility] [address] [facility] [id number] [address] [place] [id number] Mar, [facility] [address] [id number] [address] [place] [id number] Mar, [facility] [address] [facility] [id number] [address] [place] [id number] Mar, Encounter for immunization Z 23 [facility] [address] [facility] [id number] [address] [place] [id number] 31 Feb, 2018 Back pain M54.9 and Anxiety F41.9 [place] [address] [facility] [id number] [address] [place] [id number] 04 Feb, 2018 Back pain M54.9 and Anxiety F41.9 [place] [address] [facility] [id number] [address] [place] [id number] 06 Jan, 2018 Back pain M54.9 and Anxiety F41.9 [place] [address] [facility] [id number] [address] [place] [id number] 06 Jan, 2018 [place] [address] [facility] [id number] [address] [place] [id number] Dec, [facility] [address] [facility] [id number] [address] [place] [id number] Dec, Back pain M54.9 and Anxiety F41.9 [place] [address] [facility] [id number] [address] [place] [id number] 13 Dec, 2017 Diabetes E11.9 ; Type 2 diab etes mellitus with diabetic peripheral angiopathy without gangrene E11.51 ; Lumbar radiculopathy, chronic M54.16 ; COPD (chronic obstructive pulmonary disease) J44.9 and Anxiety F41.9 [place] [address] [id number] [address] [place] [id number] Dec, Back pain M54.9 and Anxiety F41.9 [facility] [address] [facility] [id number] [address] [place] [id number] Nov, Back pain M54.9 and Anxiety F41.9 [facility] [address] [facility] [id number] [address] [place] [id number] Oct, [facility] [address] [facility] [id number] [address] [place] [id number] Oct, Back pain M54.9 and Anxiety F41.9 [place] [address] [facility] [id number] [address] [place] [id number] September, Anxiety F41.9 and Back pain M54.9 [place] [address] [facility] [id number] [address] [place] [id number] September, Diabetes E11.9 ; Hypertensio n I10 ; COPD (chronic obstructive pulmonary disease) J44.9 and Lumbar radiculopathy, chronic M54.16 [place] [address] [facility] [id number] [address] [place] [id number] September, Anxiety F41.9 [place] [address] [facility] [id number] [address] [place] [id number] Aug, [facility] [address] [facility] [id number] [address] [place] [id number] Aug, [facility] [address] [facility] [id number] [address] [place] [id number] Aug, Anxiety F41.9 and Back pain M54.9 [place] [address] [facility] [id number] [address] [place] [id number] Aug, Medicare annual wellness vis it, initial [...] and USP current use of insulin Z79.4 [facility] [address] [id number] [address] [place] [id number] Jul, Back pain M54.9 [facility] [address] [id number] [address] [place] [id number] Jul, [facility] [address] [id number] [address] [place] [id number] Jul, Anxiety F41.9 and Back pain M54.9 [facility] [address] [id number] [address] [place] [id number] Jul, Diabetes E11.9 [facility] [address] [id number] [address] [place] [id number] May, [facility] [address] [id number] [address] [place] [id number] May, Diabetes E11.9 ; Anxiety F41 .9 ; Back pain M54.9 and COPD (chronic obstructive pulmonary disease) J44.9 [facility] [address] [id number] [address] [place] [id number] May, Back pain M54.9 [facility] [address] [id number] [address] [place] [id number] May, [facility] [address] [id number] [address] [place] [phone] Apr, Back pain M54.9 [facility] [address] [id number] [address] [place] [id number] Mar, Back pain M54.9 [facility] [address] [id number] [address] [place] [id number] Mar, [facility] [address] [id number] [address] [place] [id number] 16 Mar, 2017 [facility] [address] [id number] [address] [place] [id number] 14 Mar, 2017 Radiculopathy of lumbar rhiannon on M54.16 [facility] [address] [id number] [address] [place] [id number] 13 Mar, 2017 [facility] [address] [facility] [id number] [address] [place] [id number] 07 Mar, 2017 Encounter for immunization Z 23 and Lumbar radiculopathy, chronic M54.16 [facility] [address] [id number] [address] [place] [id number] 01 Mar, 2017 Back pain M54.9 and Anxiety F41.9 [facility] [address] [id number] [address] [place] [id number] 10 Feb, 2017 Acute bilateral low back boy n with left-sided sciatica M54.42 and Acute bilateral low back pain with right-sided sciatica M54.41 [facility] [address] [id number] [address] [place] [id number] Feb, [facility] [address] [id number] [address] [place] [id number] Feb, Back pain M54.9 [facility] [address] [id number] [address] [place] [id number] 05 Jan, 2017 Back pain M54.9 and Anxiety F41.9 [facility] [address] [id number] [address] [place] [id number] 05 Jan, 2017 Diabetes E11.9 [facility] [address] [id number] [address] [place] [id number] Dec, Diabetes E11.9 ; Back pain M 54.9 ; Anxiety F41.9 and Insulin long- term use Z79.4 [facility] [address] [id number] [address] [place] [id number] Dec, Anxiety F41.9 [facility] [address] [id number] [address] [place] [id number] Dec, Back pain M54.9 [facility] [address] [id number] [address] [place] [id number] Nov, Back pain M54.9 [facility] [address] [id number] [address] [place] [id number] Oct, Back pain M54.9 and Anxiety F41.9 [facility] [address] [id number] [address] [place] [id number] September, Back pain M54.9 [facility] [address] [id number] [address] [place] [phone] September, Back pain M54.9 and Anxiety F41.9 [facility] [address] [id number] [address] [place] [phone] Aug, Diabetes E11.9 ; Anxiety F41 .9 ; Back pain M54.9 and PAD (peripheral artery disease) I73.9 [facility] [address] [id number] [address] [place] [id number] Aug, Anxiety F41.9 [facility] [address] [id number] [address] [place] [id number] 14 Aug, 2016 Back pain M54.9 [facility] [address] [id number] [address] [place] [id number] Jul, Back pain M54.9 [facility] [address] [id number] [address] [place] [id number] 13 Jul, 2016 Back pain M54.9 [facility] [address] [id number] [address] [place] [id number] 23 Jul, 2016 Back pain M54.9 [facility] [address] [id number] [address] [place] [id number] 16 Jul, 2016 Dorsalgia M54.9 [facility] [address] [id number] [address] [place] [id number] 14 Jul, 2016 [facility] [address] [id number] [address] [place] [id number] May, Back pain M54.9 [facility] [address] [id number] [address] [place] [id number] May, Diabetes E11.9 ; Anxiety F41 .9 ; Port catheter in place Z95.828 ; Encounter for immunization Z23 and Insulin long-term use Z79.4 [facility] [address] [id number] [address] [place] [id number] Apr, Back pain M54.9 [facility] [address] [id number] [address] [place] [phone] Apr, Back pain M54.9 [facility] [address] [id number] [address] [place] [id number] Apr, [facility] [address] [id number] [address] [place] [id number] Apr, Back pain M54.9 [facility] [address] [id number] [address] [place] [id number] Mar, COPD (chronic obstructive pu lmonary disease) J44.9 [facility] [address] [id number] [address] [place] [id number] Feb, [facility] [address] [id number] [address] [place] [id number] 30 Jan, 2016 [facility] [address] [id number] [address] [place] [id number] Jan, [facility] [address] [id number] [address] [place] [id number] Jan, [facility] [address] [id number] [address] [place] [id number] Jan, [facility] [address] [id number] [address] [place] [id number] Dec, Diabetes E11.9 ; Hypoxia R09 .02 and Back pain M54.9 [facility] [address] [id number] [address] [place] [phone] Dec, [facility] [address] [id number] [address] [place] [phone] Nov, [facility] [address] [id number] [address] [place] [phone] Oct, Anxiety F41.9 [facility] [address] [id number] [address] [place] [id number] Oct, Back pain M54.9 [facility] [address] [id number] [address] [place] [id number] September, Back pain M54.9 [facility] [address] [id number] [address] [place] [id number] September, Diabetes E11.9 [facility] [address] [id number] [address] [place] [id number] September, [facility] [address] [id number] [address] [place] [address] September, Diabetes E11.9 ; Insulin sarai g-term use Z79.4 and Back pain M54.9 [facility] [address] [id number] [address] [place] [address] Aug, Back pain M54.9 [facility] [address] [id number] [address] [place] [address] Aug, Back pain M54.9 ; Anxiety F4 1.9 and Arthropathy, unspecified M12.9 [facility] [address] [id number] [address] [place] [id number] Jul, Back pain M54.9 [facility] [address] [facility] [id number] [address] [place] [address] Jul, Anxiety F41.9 [facility] [address] [facility] [id number] [address] [place] [address] Jul, Back pain M54.9 [facility] [address] [facility] [id number] [address] [place] [address] Jul, [facility] [address] [facility] [id number] [address] [place] [id number] Jul, [facility] [address] [facility] [id number] [address] [place] [id number] May, Back pain M54.9 ; Diabetes E 11.9 ; Insulin long-term use Z79.4 ; COPD (chronic obstructive pulmonary disease) J44.9 and Hypertension I10 [facility] [address] [facility] [id number] [address] [place] [address] May, Chronic pain G89.29 [facility] [address] [facility] [id number] [address] [place] [id number] Apr, [facility] [address] [facility] [id number] [address] [place] [address] Apr, [facility] [address] [facility] [id number] [address] [place] [id number] Mar, [facility] [address] [facility] [id number] [address] [place] [id number] Mar, Encounter for immunization Z 23 and Diabetes E11.9 [facility] [address] [facility] [id number] [address] [place] [address] Feb, [facility] [address] [facility] [id number] [address] [place] [id number] Feb, [facility] [address] [facility] [id number] [address] [place] [id number] Jan, [facility] [address] [facility] [id number] [address] [place] [id number] Jan, [facility] [address] [facility] [id number] [address] [place] [id number] Dec, [facility] [address] [id number] [address] [place] [address], [place] [address] Dec, [facility] [address] [id number] [address] [place] [address], [place] [address] Dec, Unspecified arthropathy, sit e unspecified 716.90 and Diabetes mellitus type 2, uncontrolled 250.02 [facility] [address] [id number] [address] [place] [address], [place] [address] Dec, [facility] [address] [id number] [address] [place] [address], [place] [address] Nov, [facility] [address] [id number] [address] [place] [address], [place] [address] Oct, [facility] [address] [id number] [address] [place] [address], [place] [address] September, [facility] [address] [id number] [address] [place] [address], [place] [address] September, [facility] [address] [id number] [address] [place] [address], [place] [address] September, [facility] [address] [id number] [address] [place] [address], [place] [address] September, [facility] [address] [id number] [address] [place] [address], [place] [address] Aug, [facility] [address] [id number] [address] [place] [address], [place] [address] Aug, [facility] [address] [id number] [address] [place] [address], [place] [address] Jul, [facility] [address] [id number] [address] [place] [address], [place] [address] Jul, [facility] [address] [id number] [address] [place] [id number] 16 Jul, 2014 [facility] [address] [id number] [address] [place] [id number] 16 Jul, 2014 [facility] [address] [id number] [facility] [place] [address] 16 Jul, 2014 [facility] [address] [id number] [address] [place] [address], [place] [address] 16 Jul, 2014 [facility] [address] [id number] [address] [place] [address], [place] [address] 16 Jul, 2014 [facility] [address] [id number] [address] [place] [address], [place] [address] 16 Jul, 2014 [facility] [address] [id number] [address] [place] [address], [place] [address] 16 Jul, 2014 [facility] [address] [id number] [address] [place] [address], [place] [address] 13 Jul, 2014 [facility] [address] [id number] [address] [place] [address], [place] [address] 13 Jul, 2014 [facility] [address] [id number] [address] [place] [address], [place] [address] 09 Jul, 2014 [facility] [address] [id number] [address] [place] [address], [place] [address] 09 Jul, 2014 [facility] [address] [id number] [address] [place] [address], [place] [address] 17 Jul, 2014 [facility] [address] [id number] [address] [place] [address], [place] [address] 17 Jul, 2014 [facility] [address] [id number] [address] [place] [address], [place] [address] 16 Jul, 2014 [facility] [address] [id number] [address] [place] [address], [place] [address] 16 Jul, 2014 [facility] [address] [id number] [address] [place] [address], [place] [id number] 16 Jul, 2014 [facility] [address] [id number] [address] [place] [address], [place] [address] 16 Jul, 2014 [facility] [address] [id number] [address] [place] [address], [place] [address] 16 Jul, 2014 [facility] [address] [id number] [address] [place] [address], [place] [address] Jul, 2014 [facility] [address] [id number] [address] [place] [address], [place] [address] 16 Jul, 2014 [facility] [address] [id number] [address] [place] [address], [place] [address] 16 Jul, 2014 [facility] [address] [id number] [address] [place] [address], [place] [address] 16 Jul, 2014 [facility] [address] [id number] [address] [place] [address], [place] [address] Jul, 2014 [facility] [address] [id number] [address] [place] [address], [place] [address] Jul, 2014 [facility] [address] [id number] [address] [place] [address], [place] [address] Jul, 2014 [facility] [address] [id number] [address] [place] [address], [place] [address] Jul, 2014 [facility] [address] [id number] [address] [place] [address], [place] [address] Jul, 2014 [facility] [address] [id number] [address] [place] [address], [place] [address] May, [facility] [address] [id number] [address] [place] [address], [place] [address] May, [facility] [address] [id number] [address] [place] [address], [place] [address] May, [facility] [address] [id number] [address] [place] [address], [place] [address] May, [facility] [address] [id number] [address] [place] [address], [place] [address] May, [facility] [address] [id number] [address] [place] [address] [place] [address] May, [facility] [address] [id number] [address] [place] [address], [place] [address] May, [facility] [address] [id number] [address] [place] [address], [place] [address] May, [facility] [address] [id number] [address] [place] [address], [place] [address] May, [facility] [address] [id number] [address] [place] [address], [place] [address] May, [facility] [address] [id number] [address] [place] [address], [place] [address] Apr, [facility] [address] [id number] [address] [place] [address], [place] [address] Apr, [facility] [address] [id number] [address] [place] [address], [place] [address] Apr, [facility] [address] [id number] [address] [place] [address], [place] [address] Apr, [facility] [address] [id number] [address] [place] [address], [place] [address] Apr, [facility] [address] [id number] [address] [place] [address], [place] [address] Apr, [facility] [address] [id number] [address] [place] [address], [place] [address] Mar, [facility] [address] [id number] [address] [place] [address], [place] [address] Mar, [facility] [address] [id number] [address] [place] [address], [place] [address] Mar, [facility] [address] [id number] [address] [place] [address], [place] [address] Mar, [facility] [address] [id number] [address] [place] [address], [place] [address] Mar, [facility] [address] [id number] [address] [place] [address], [place] [address] Mar, [facility] [address] [id number] [address] [place] [address], [place] [address] Mar, [facility] [address] [id number] [address] [place] [address], [place] [address] Mar, [facility] [address] [id number] [address] [place] [address], [place] [address] Mar, [facility] [address] [id number] [address] [place] [address], [place] [address] Mar, [facility] [address] [id number] [address] [place] [address], [place] [address] Mar, [facility] [address] [id number] [address] [place] [address], [place] [address] Feb, [facility] [address] [id number] [address] [place] [address], [place] [address] Feb, [facility] [address] [id number] [address] [place] [address], [place] [address] Feb, [facility] [address] [id number] [address] [place] [address], [place] [address] Feb, [facility] [address] [id number] [address] [place] [address], [place] [address] Feb, [facility] [address] [id number] [address] [place] [address], [place] [address] Feb, [facility] [address] [id number] [address] [place] [address], [place] [address] Feb, [facility] [address] [id number] [address] [place] [address], [place] [address] Feb, [facility] [address] [id number] [address] [place] [address], [place] [address] Feb, [facility] [address] [id number] [address] [place] [address], [place] [address] Feb, [facility] [address] [id number] [facility] [place] [address] Jan, [facility] [address] [id number] [address] [place] [address], [place] [address] Jan, [facility] [address] [id number] [address] [place] [address], [place] [address] Jan, [facility] [address] [id number] [address] [place] [address], [place] [address] 16 Jan, 2014 [facility] [address] [id number] [address] [place] [address], [place] [address] Jan, [facility] [address] [id number] [address] [place] [address], [place] [address] Jan, [facility] [address] [id number] [address] [place] [address], [place] [address] Jan, [facility] [address] [id number] [address] [place] [address], [place] [address] Dec, [facility] [address] [id number] [address] [place] [address], [place] [address] Dec, [facility] [address] [id number] [address] [place] [address], [place] [address] Dec, [facility] [address] [id number] [address] [place] [address], [place] [address] Dec, [facility] [address] [id number] [address] [place] [address], [place] [address] Dec, [facility] [address] [id number] [address] [place] [address], [place] [address] Dec, [facility] [address] [id number] [address] [place] [address], [place] [address] Dec, [facility] [address] [id number] [address] [place] [address], [place] [id number] Dec, [facility] [address] [id number] [address] [place] [address], [place] [address] Oct, [facility] [address] [id number] [address] [place] [address], [place] [address] Oct, [facility] [address] [id number] [address] [place] [address], [place] [address] September, [facility] [address] [id number] [address] [place] [address], [place] [address] September, [facility] [address] [id number] [address] [place] [address], [place] [address] September, [facility] [address] [id number] [address] [place] [address], [place] [address] September, [facility] [address] [id number] [address] [place] [address], [place] [address] September, [facility] [address] [id number] [address] [place] [address], [place] [address] September, [facility] [address] [id number] [address] [place] [address], [place] [address] September, [facility] [address] [id number] [address] [place] [address], [place] [address] Aug, [facility] [address] [id number] [address] [place] [address], [place] [address] Aug, [facility] [address] [id number] [address] [place] [address], [place] [address] Jul, [facility] [address] [id number] [address] [place] [address], [place] [address] Jul, [facility] [address] [id number] [address] [place] [address], [place] [address] Jul, [facility] [address] [id number] [address] [place] [address], [place] [address] 17 Jul, 2013 [facility] [address] [id number] [address] [place] [address], [place] [address] 14 Jul, 2013 [facility] [address] [id number] [address] [place] [address], [place] [address] 14 Jul, 2013 [facility] [address] [id number] [address] [place] [address], [place] [address] 03 Jul, 2013 [facility] [address] [id number] [address] [place] [address], [place] [address] Jul, [facility] [address] [id number] [address] [place] [address], [place] [address] 15 May, 2013 [facility] [address] [id number] [address] [place] [address], [place] [address] 15 May, 2013 [facility] [address] [id number] [address] [place] [address], [place] [address] May, [facility] [address] [id number] [address] [place] [address], [place] [address] May, [facility] [address] [id number] [address] [place] [address], [place] [address] 18 Apr, 2013 [facility] [address] [id number] [address] [place] [address], [place] [address] Mar, [facility] [address] [id number] [address] [place] [address], [place] [address] Mar, [facility] [address] [id number] [address] [place] [address], [place] [address] Mar, [facility] [address] [id number] [address] [place] [address], [place] [address] Mar, [facility] [address] [id number] [address] [place] [address], [place] [address] Mar, [facility] [address] [id number] [address] [place] [address], [place] [address] 18 Mar, 2013 [facility] [address] [id number] [address] [place] [address], [place] [address] Mar, [facility] [address] [id number] [address] [place] [address], [place] [id number] Mar, [facility] [address] [id number] [address] [place] [address], [place] [address] Mar, [facility] [address] [id number] [address] [place] [address], [place] [address] Mar, [facility] [address] [id number] [address] [place] [address], [place] [address] Mar, [facility] [address] [id number] [address] [place] [address], [place] [address] Mar, [facility] [address] [id number] [address] [place] [address], [place] [address] Feb, [facility] [address] [id number] [address] [place] [address], [place] [address] Feb, [facility] [address] [id number] [address] [place] [address], [place] [address] Feb, [facility] [address] [id number] [address] [place] [address], [place] [address] Feb, [facility] [address] [id number] [address] [place] [address], [place] [address] Feb, [facility] [address] [id number] [address] [place] [address], [place] [address] Jan, [facility] [address] [id number] [address] [place] [address], [place] [id number] Dec, [facility] [address] [id number] [address] [place] [address], [place] [id number] Dec, [facility] [address] [id number] [address] [place] [address], [place] [address] Dec, [facility] [address] [id number] [address] [place] [address], [place] [id number] Nov, [facility] [address] [id number] [address] [place] [address], [place] [address] Nov, [facility] [address] [id number] [address] [place] [address], [place] [id number] Nov, [facility] [place] [address] [id number] [address] [place] [address], [place] [address] Oct, [facility] [address] [id number] [address] [place] [address], [place] [address] Oct, [facility] [place] [address] [id number] [address] [place] [address], [place] [address] Oct, [facility] [address] [id number] [address] [place] [address], [place] [address] September, [facility] [place] [address] [id number] [address] [place] [address], [place] [address] September, [facility] [address] [id number] [address] [place] [address], [place] [address] September, [facility] [address] [id number] [address] [place] [address], [place] [address] September, [facility] [address] [id number] [address] [place] [address], [place] [id number] September, [facility] [address] [id number] [address] [place] [address], [place] [address] Aug, [facility] [address] [id number] [address] [place] [address], [place] [id number] Aug, [facility] [address] [id number] [address] [place] [address], [place] [address] Aug, [facility] [address] [id number] [address] [place] [address], [place] [address] Jul, [facility] [address] [id number] [address] [place] [address], [place] [address] Jul, [facility] [address] [id number] [address] [place] [address], [place] [address] Jul, [facility] [place] [address] [id number] [address] [place] [address], [place] [id number] Jul, [facility] [address] [id number] [address] [place] [address], [place] [address] Jul, [facility] [address] [id number] [address] [place] [address], [place] [address] Jul, [facility] [address] [id number] [address] [place] [address], [place] [id number] Jul, [facility] [address] [id number] [address] [place] [address], [place] [id number] 14 May, 2012 [facility] [address] [id number] [address] [place] [address], [place] [id number] May, [facility] [address] [id number] [address] [place] [address], [place] [id number] May, [facility] [place] [address] [id number] [address] [place] [address], [place] [address] Apr, [facility] [address] [id number] [address] [place] [address], [place] [address] Apr, [facility] [place] [address] [id number] [address] [place] [address], [place] [id number] Apr, [facility] [address] [id number] [address] [place] [address], [place] [id number] 17 Apr, 2012 [facility] [place] [address] [id number] [address] [place] [address], [place] [address] Apr, [facility] [address] [id number] [address] [place] [address], [place] [id number] 29 Mar, 2012 [facility] [address] [id number] [address] [place] [address], [place] [id number] 29 Mar, 2012 [facility] [address] [id number] [address] [place] [address], [place] [id number] 15 Mar, 2012 [facility] [address] [id number] [address] [place] [address], [place] [id number] 15 Mar, 2012 [facility] [address] [id number] [address] [place] [address], [place] [id number] Feb, [facility] [address] [id number] [address] [place] [address], [place] [id number] Feb, [facility] [address] [id number] [address] [place] [address], [place] [id number] Feb, [facility] [address] [id number] [address] [place] [address], [place] [address] Feb, [facility] [address] [id number] [address] [place] [address], [place] [id number] Feb, [facility] [address] [id number] [address] [place] [address], [place] [id number] Jan, [facility] [address] [id number] [address] [place] [address], [place] [id number] Dec, [facility] [address] [id number] [address] [place] [address], [place] [address] Dec, [facility] [address] [id number] [address] [place] [address], [place] [id number] Dec, [facility] [address] [id number] [address] [place] [address], [place] [id number] Nov, [facility] [address] [id number] [address] [place] [address], [place] [id number] Nov, [facility] [address] [id number] [address] [place] [address], [place] [id number] Nov, [facility] [address] [address] [id number] [address] [place] [address], [place] [id number] Oct, [facility] [address] [id number] [address] [place] [address], [place] [id number] Oct, [facility] [address] [id number] [address] [place] [address], [place] [id number] Oct, [facility] [address] [id number] [address] [place] [address], [place] [id number] Oct, [facility] [address] [id number] [address] [place] [address], [place] [id number] September, [facility] [address] [id number] [address] [place] [address], [place] [id number] September, [facility] [address] [id number] [address] [place] [address], [place] [id number] Aug, [facility] [address] [id number] [address] [place] [address], [place] [id number] Aug, [facility] [address] [id number] [address] [place] [address], [place] [id number] Aug, [facility] [address] [id number] [address] [place] [address], [place] [id number] Aug, [facility] [address] [id number] [address] [place] [address], [place] [id number] Aug, [facility] [address] [id number] [address] [place] [address], [place] [id number] Aug, [facility] [address] [id number] [address] [place] [address], [place] [id number] Aug, [facility] [address] [id number] [address] [place] [address], [place] [id number] Jul, [facility] [address] [id number] [address] [place] [address], [place] [id number] Jul, [facility] [address] [id number] [address] [place] [address], [place] [id number] Jul, [facility] [address] [id number] [address] [place] [address], [place] [id number] May, [facility] [address] [id number] [address] [place] [address], [place] [id number] May, [facility] [address] [id number] [address] [place] [address], [place] [id number] May, [facility] [address] [id number] [address] [place] [id number] Apr, [facility] [address] [id number] [address] [place] [id number] Apr, [facility] [address] [id number] [address] [place] [id number] Mar, [facility] [address] [id number] [address] [place] [id number] Mar, [facility] [address] [id number] [address] [place] [id number] Mar, [facility] [address] [id number] [address] [place] [id number] Mar, [facility] [address] [id number] [address] [place] [id number] Mar, [facility] [address] [id number] [address] [place] [id number] Mar, [facility] [address] [id number] [address] [place] [id number] Feb, [facility] [address] [id number] [address] [place] [id number] Feb, [facility] [address] [id number] [address] [place] [id number] Feb, IMMUNIZATIONS No Known Immunizations SOCIAL HISTORY [...] infections x 3 2016 Hospitalization History [facility] - right big t oe removed 2019
--- OUTSIDE RECORDS SUMMARY | 2020-01-03 08:18 | XMS REPORT ---
Author Author Tra SILVERIO Organization [facility] Address [address] [place] [address] Care Team Providers Care Prototype Special Build Name Role Phone FERNY SILVERIO Unavailable PROBLEMS Type Condition ICD9-CM Code RDL89-OG Code Onset Dates Condition S tatus SNOMED Code Problem Hypertension I10 Active 4045336 3 Problem Hypoxia R09.02 Active 936257393 Problem COPD (chronic obstructive pulmonary disease) J44.9 Active 55826565 Problem Lumbar radiculopathy, chronic M54.16 Active 253340282 Problem half-way current use of insulin Z79.4 Active 539437594 Problem Recurrent major depressive disorder, in full remission F33.42 Active 211473494 Problem Hyperlipidemia, unspecified E78.5 Ac tive 76503368 Problem PAD (peripheral artery disease) I73.9 Active 671801127 Problem Type 2 diabetes mellitus with other specified complication E11.69 Active 018742854202 Problem Anxiety F41.9 Active 81945764 Problem Type 2 diabetes mellitus wit h diabetic peripheral angiopathy without gangrene E11.51 Active 675624044 Problem ED (erectile dysfunction) of organic origin N52.9 Active 783947845 Problem Arthritis M19.90 Active 3266169 Problem Morbid (severe) obesity due to excess calories E66 .01 Active 544147042 ALLERGIES No Information ENCOUNTERS Encounter Location Date Diagnosis [facility] [address] [id number] [place] [address] Aug, [facility] [address] [facility] [id number] [address] [place] [id number] 24 Aug, 2019 Back pain M54.9 and Lumbar r adiculopathy, chronic M54.16 [facility] [address] [facility] [id number] [address] [place] [address] Aug, Anxiety F41.9 ; Back pain M5 4.9 and Lumbar radiculopathy, chronic M54.16 [facility] [address] [id number] [address] [place] [address] 09 Aug, 2019 Lumbar radiculopathy, chroni c M54.16 ; Anxiety F41.9 ; Type 2 diabetes mellitus with other specified complication E11.[address] [facility] [address] [id number] [address] [place] [address] 30 Jul, 2019 [facility] [address] [id number] [address] [place] [address] 27 Jul, 2019 Lumbar radiculopathy, chroni c M54.16 ; Back pain M54.[address] [facility] [address] [id number] [address] [place] [address] 23 Jul, 2019 [facility] [address] [id number] [address] [place] [address] 13 Jul, [address] [facility] [address] [id number] [address] [place] [id number] 12 Jul, [address] [facility] [address] [id number] [address] [place] [address] 02 Jul, [address] [facility] [address] [id number] [address] [place] [address] 02 Jul, [address] [facility] [address] [id number] [address] [place] [id number] 28 Jul, 2019 Lumbar radiculopathy, chroni c M54.16 [facility] [address] [id number] [address] [place] [id number] 28 Jul, [address] [facility] [address] [id number] [address] [place] [address] 07 Jul, 2019 [facility] ; COPD (chronic obstructive [...] diabetes mellitus with other specified complication E11.69 [facility] [address] [id number] [address] [place] [address] Jul, Back pain M54.9 [facility] [address] [id number] [address] [place] [address] Jul, Anxiety F41.9 [place] [address] [id number] [address] [place] [address] May, [place] [address] [id number] [address] [place] [address] May, Lumbar radiculopathy, chroni c M54.16 [place] [address] [id number] [address] [place] [address] May, Back pain M54.9 [place] [address] [id number] [address] [place] [address] May, [place] [address] [facility] [id number] [address] [place] [address] May, Back pain M54.9 and Anxiety F41.9 [place] [address] [facility] [id number] [address] [place] [address] May, [place] [address] [id number] [address] [place] [address] May, Type 2 diabetes mellitus wit h diabetic peripheral angiopathy without gangrene E11.51 ; Arthritis M19.90 ; ED (erectile dysfunction) of organic origin N52.9 ; Morbid (severe) obesity due to excess calories E66.01 and Lumbar radiculopathy, chronic M54.16 [place] [address] [id number] [address] [place] [address] May, Diabetes E11.9 [facility] [address] [id number] [address] [place] [address] Apr, [facility] [address] [id number] [address] [place] [address] Apr, Back pain M54.9 [facility] [address] [id number] [address] [place] [id number] Apr, [facility] [address] [id number] [address] [place] [address] Apr, Anxiety F41.9 [facility] [address] [id number] [address] [place] [address] Apr, Back pain M54.9 and Lumbar r adiculopathy, chronic M54.16 [facility] [address] [facility] [id number] [address] [place] [address] Apr, Back pain M54.9 ; Anxiety F4 1.9 and Lumbar radiculopathy, chronic M54.16 [facility] [address] [facility] [id number] [address] [place] [address] Mar, [facility] [address] [facility] [id number] [address] [place] [address] Mar, [facility] [address] [facility] [id number] [address] [place] [address] Mar, Back pain M54.9 [facility] [address] [facility] [id number] [address] [place] [address] Mar, [facility] [address] [facility] [id number] [address] [place] [address] Feb, Type 2 diabetes mellitus wit h diabetic peripheral angiopathy without gangrene E11.51 ; Lumbar radiculopathy, chronic M54.16 ; ED (erectile dysfunction) of organic origin N52.9 ; Encounter for immunization Z23 ; COPD (chronic obstructive pulmonary disease) J44.[address] [facility] [address] [id number] [address] [place] [address] Feb, Back pain M54.9 [facility] [address] [id number] [address] [place] [address] Feb, [facility] [address] [id number] [address] [place] [address] Feb, [facility] [address] [id number] [address] [place] [address] Feb, [facility] [address] [id number] [address] [place] [address] Feb, Back pain M54.9 [facility] [address] [id number] [address] [place] [address] Feb, [facility] [address] [id number] [address] [place] [address] Jan, Anxiety F41.9 [facility] [address] [id number] [address] [place] [address] Jan, Anxiety F41.9 [facility] [address] [id number] [address] [place] [address] Jan, [facility] [address] [id number] [address] [place] [address] Jan, [facility] [address] [id number] [address] [place] [address] Jan, Back pain M54.9 [facility] [address] [id number] [address] [place] [address] Jan, [facility] [address] [id number] [address] [place] [address] Dec, Acute non-recurrent frontal sinusitis J01.10 [facility] [address] [id number] [address] [place] [address] Dec, Acute non-recurrent frontal sinusitis J01.10 [facility] [address] [id number] [address] [place] [address] Dec, Type 2 diabetes mellitus wit h diabetic peripheral angiopathy without gangrene E11.51 ; Lumbar radiculopathy, chronic M54.16 ; Recurrent major depressive disorder, in full remission F33.[address] [facility] [address] [id number] [address] [place] [address] Dec, [facility] [address] [id number] [address] [place] [address] Nov, Anxiety F41.9 [facility] [address] [id number] [address] [place] [address] Nov, [facility] [address] [id number] [address] [place] [address] Nov, Back pain M54.9 [facility] [address] [id number] [address] [place] [address] Nov, [facility] [address] [id number] [address] [place] [address] Nov, Back pain M54.9 [facility] [address] [id number] [address] [place] [address] Nov, Anxiety F41.9 [facility] [address] [id number] [address] [place] [address] Nov, [facility] [address] [id number] [address] [place] [address] Oct, Back pain M54.9 [facility] [address] [id number] [address] [place] [address] Oct, [facility] [address] [id number] [address] [place] [address] Oct, [facility] [address] [id number] [address] [place] [address] Oct, [facility] [address] [id number] [address] [place] [address] September, Back pain M54.9 [facility] [address] [id number] [address] [place] [address] September, [facility] [address] [id number] [address] [place] [address] September, [facility] [address] [id number] [address] [place] [address] September, [facility] [address] [id number] [address] [place] [address] Aug, Back pain M54.9 [facility] [address] [id number] [address] [place] [address] Aug, Anxiety F41.9 [facility] [address] [id number] [address] [place] [address] Aug, [facility] [address] [id number] [address] [place] [address] Aug, Pressure ulcer of other site , stage 3 L89.893 and COPD (chronic obstructive pulmonary disease) J44.9 [facility] [address] [id number] [address] [place] [address] Aug, History of smoking Z87.891 [facility] [address] [id number] [address] [place] [address] Jul, Type 2 diabetes mellitus wit h diabetic peripheral angiopathy without gangrene E11.51 [facility] [address] [id number] [address] [place] [address] Jul, Back pain M54.9 [facility] [address] [id number] [address] [place] [address] Jul, Anxiety F41.9 [facility] [address] [id number] [address] [place] [address] Jul, [facility] [address] [id number] [address] [place] [address] Jul, Back pain M54.9 [facility] [address] [id number] [address] [place] [address] Jul, Back pain M54.9 [facility] [address] [id number] [address] [place] [address] Jul, Lumbar radiculopathy, chroni c M54.16 ; Hypertension I10 and Type 2 diabetes mellitus with diabetic peripheral angiopathy without gangrene E11.51 [facility] [address] [id number] [address] [place] [address] Jul, Back pain M54.9 [facility] [address] [id number] [address] [place] [address] Jul, Back pain M54.9 and Anxiety F41.9 [place] [address] [id number] [address] [place] [address] Jul, [facility] [address] [id number] [address] [place] [address] May, Back pain M54.9 and Anxiety F41.9 [place] [address] [id number] [address] [place] [address] May, [facility] [address] [id number] [address] [place] [address] Apr, Radiculopathy of lumbar rhiannon on M54.16 ; Back pain M54.[address] [facility] [address] [id number] [address] [place] [address] Apr, Diabetes E11.9 ; Muscle spas m M62.838 and Lumbar radiculopathy, chronic M54.16 [facility] [address] [id number] [address] [place] [address] Apr, [facility] [address] [id number] [address] [place] [address] Apr, [facility] [address] [id number] [address] [place] [address] 30 Mar, 2018 Back pain M54.[address] [facility] [address] [id number] [address] [place] [address] Mar, [facility] [address] [facility] [id number] [address] [place] [address] Mar, [facility] [address] [id number] [address] [place] [address] Mar, [facility] [address] [facility] [id number] [address] [place] [address] Mar, Encounter for immunization Z 23 [facility] [address] [facility] [id number] [address] [place] [address] 31 Feb, 2018 Back pain M54.9 and Anxiety F41.9 [place] [address] [facility] [id number] [address] [place] [address] 04 Feb, 2018 Back pain M54.9 and Anxiety F41.9 [place] [address] [facility] [id number] [address] [place] [address] 06 Jan, 2018 Back pain M54.9 and Anxiety F41.9 [place] [address] [facility] [id number] [address] [place] [address] 06 Jan, 2018 [place] [address] [facility] [id number] [address] [place] [address] Dec, [facility] [address] [facility] [id number] [address] [place] [address] Dec, Back pain M54.9 and Anxiety F41.9 [place] [address] [facility] [id number] [address] [place] [address] 13 Dec, 2017 Diabetes E11.9 ; Type 2 diab etes mellitus with diabetic peripheral angiopathy without gangrene E11.51 ; Lumbar radiculopathy, chronic M54.16 ; COPD (chronic obstructive pulmonary disease) J44.9 and Anxiety F41.9 [place] [address] [id number] [address] [place] [address] Dec, Back pain M54.[address] [facility] [address] [facility] [id number] [address] [place] [address] Nov, Back pain M54.[address] [facility] [address] [facility] [id number] [address] [place] [address] Oct, [facility] [address] [facility] [id number] [address] [place] [address] Oct, Back pain M54.9 and Anxiety F41.9 [place] [address] [facility] [id number] [address] [place] [address] September, Anxiety F41.9 and Back pain M54.9 [place] [address] [facility] [id number] [address] [place] [address] September, Diabetes E11.9 ; Hypertensio n I10 ; COPD (chronic obstructive pulmonary disease) J44.9 and Lumbar radiculopathy, chronic M54.16 [place] [address] [facility] [id number] [address] [place] [address] September, Anxiety F41.9 [place] [id number] [facility] [id number] [address] [place] [address] Aug, [facility] [address] [facility] [id number] [address] [place] [address] Aug, [facility] [address] [facility] [id number] [address] [place] [address] Aug, Anxiety F41.9 and Back pain M54.9 [place] [address] [facility] [id number] [address] [place] [address] Aug, Medicare annual wellness vis it, initial [...] and half-way current use of insulin Z79.4 [facility] [address] [id number] [address] [place] [address] Jul, Back pain M54.9 [facility] [address] [id number] [address] [place] [address] Jul, [facility] [address] [id number] [address] [place] [address] Jul, Anxiety F41.9 and Back pain M54.9 [facility] [address] [id number] [address] [place] [address] Jul, Diabetes E11.9 [facility] [address] [id number] [address] [place] [address] May, [facility] [address] [id number] [address] [place] [address] May, Diabetes E11.9 ; Anxiety F41 .9 ; Back pain M54.9 and COPD (chronic obstructive pulmonary disease) J44.9 [facility] [address] [id number] [address] [place] [address] May, Back pain M54.9 [facility] [address] [id number] [address] [place] [address] May, [facility] [address] [id number] [address] [place] [address] Apr, Back pain M54.9 [facility] [address] [id number] [address] [place] [address] Mar, Back pain M54.9 [facility] [address] [id number] [address] [place] [address] Mar, [facility] [address] [id number] [address] [place] [address] 16 Mar, 2017 [facility] [address] [id number] [address] [place] [address] 14 Mar, 2017 Radiculopathy of lumbar rhiannon on M54.16 [facility] [address] [id number] [address] [place] [address] 13 Mar, 2017 [facility] [address] [facility] [id number] [address] [place] [address] 07 Mar, 2017 Encounter for immunization Z 23 and Lumbar radiculopathy, chronic M54.16 [facility] [address] [id number] [address] [place] [address] 01 Mar, 2017 Back pain M54.9 and Anxiety F41.9 [facility] [address] [id number] [address] [place] [address] 10 Feb, 2017 Acute bilateral low back boy n with left-sided sciatica M54.42 and Acute bilateral low back pain with right-sided sciatica M54.41 [facility] [address] [id number] [address] [place] [address] Feb, [facility] [address] [id number] [address] [place] [address] Feb, Back pain M54.9 [facility] [address] [id number] [address] [place] [address] 05 Jan, 2017 Back pain M54.[address] [facility] [address] [id number] [address] [place] [address] 05 Jan, [address] [facility] [address] [id number] [address] [place] [address] Dec, Diabetes E11.9 ; Back pain M 54.9 ; Anxiety F41.9 and Insulin long- term use Z79.4 [facility] [address] [id number] [address] [place] [address] Dec, Anxiety F41.9 [facility] [address] [id number] [address] [place] [address] Dec, Back pain M54.9 [facility] [address] [id number] [address] [place] [address] Nov, Back pain M54.9 [facility] [address] [id number] [address] [place] [phone] Oct, Back pain M54.[address] [facility] [address] [id number] [address] [place] [phone] September, Back pain M54.9 [facility] [address] [id number] [address] [place] [phone] September, Back pain M54.[address] [facility] [address] [id number] [address] [place] [id number] Aug, Diabetes E11.9 ; Anxiety F41 .9 ; Back pain M54.9 and PAD (peripheral artery disease) I73.9 [facility] [address] [id number] [address] [place] [phone] Aug, Anxiety F41.9 [facility] [address] [id number] [address] [place] [id number] 14 Aug, [address] [facility] [address] [id number] [address] [place] [phone] Jul, Back pain M54.9 [facility] [address] [id number] [address] [place] [phone] 13 Jul, [address] [facility] [address] [id number] [address] [place] [phone] 23 Jul, [address] [facility] [address] [id number] [address] [place] [phone] 16 Jul, [address] [facility] [address] [id number] [address] [place] [id number] 14 Jul, 2016 [facility] [address] [id number] [address] [place] [phone] May, Back pain M54.9 [facility] [address] [id number] [address] [place] [phone] May, Diabetes E11.9 ; Anxiety F41 .9 ; Port catheter in place Z95.828 ; Encounter for immunization Z23 and Insulin long-term use Z79.4 [facility] [address] [id number] [address] [place] [phone] Apr, Back pain M54.9 [facility] [address] [id number] [address] [place] [phone] Apr, Back pain M54.9 [facility] [address] [id number] [address] [place] [phone] Apr, [facility] [address] [id number] [address] [place] [phone] Apr, Back pain M54.9 [facility] [address] [id number] [address] [place] [id number] Mar, COPD (chronic obstructive pu lmonary disease) J44.9 [facility] [address] [id number] [address] [place] [id number] Feb, [facility] [address] [id number] [address] [place] [id number] [address], [address] [facility] [address] [id number] [address] [place] [phone] Jan, [facility] [address] [id number] [address] [place] [phone] Jan, [facility] [facility] [address] [id number] [address] [place] [address] Jan, [facility] [address] [id number] [address] [place] [address] Dec, Diabetes E11.9 ; Hypoxia R09 .[address] [facility] [address] [id number] [address] [place] [address] Dec, [facility] [address] [id number] [address] [place] [address] Nov, [facility] [address] [id number] [address] [place] [address] Oct, Anxiety F41.9 [facility] [address] [id number] [address] [place] [address] Oct, Back pain M54.9 [facility] [address] [id number] [address] [place] [address] September, Back pain M54.9 [facility] [address] [id number] [address] [place] [address] September, Diabetes E11.9 [facility] [address] [id number] [address] [place] [address] September, [facility] [address] [id number] [address] [place] [address] September, Diabetes E11.9 ; Insulin sarai g-term use Z79.4 [address] Back pain M54.9 [facility] [address] [id number] [address] [place] [address] Aug, Back pain M54.9 [facility] [address] [id number] [address] [place] [address] Aug, Back pain M54.9 ; Anxiety F4 1.9 and Arthropathy, unspecified M12.9 [facility] [address] [id number] [address] [place] [address] Jul, Back pain M54.9 [facility] [address] [facility] [id number] [address] [place] [address] Jul, Anxiety F41.9 [facility] [address] [facility] [id number] [address] [place] [address] Jul, Back pain M54.9 [facility] [address] [facility] [id number] [address] [place] [address] Jul, [facility] [address] [facility] [id number] [address] [place] [address] Jul, [facility] [address] [facility] [id number] [address] [place] [address] May, Back pain M54.9 ; Diabetes E 11.9 ; Insulin long-term use Z79.4 ; COPD (chronic obstructive pulmonary disease) J44.[address] [facility] [address] [facility] [id number] [address] [place] [address] May, Chronic pain G89.29 [facility] [address] [facility] [id number] [address] [place] [address] Apr, [facility] [address] [facility] [id number] [address] [place] [address] Apr, [facility] [address] [facility] [id number] [address] [place] [address] Mar, [facility] [address] [facility] [id number] [address] [place] [address] Mar, Encounter for immunization Z [address] [facility] [address] [facility] [id number] [address] [place] [address] Feb, [facility] [address] [facility] [id number] [address] [place] [address] Feb, [facility] [address] [facility] [id number] [address] [place] [address] Jan, [facility] [address] [facility] [id number] [address] [place] [address] Jan, [facility] [address] [facility] [id number] [address] [place] [address] Dec, [facility] [address] [id number] [address] [place] [address], [place] [address] Dec, [facility] [address] [id number] [address] [place] [address], [place] [address] Dec, Unspecified arthropathy, sit e unspecified 716.90 and Diabetes mellitus type 2, uncontrolled 250.02 [facility] [address] [id number] [address] [place] [address], [place] [address] Dec, [facility] [address] [id number] [address] [place] [address], [place] [address] Nov, [facility] [address] [id number] [address] [place] [address], [place] [address] Oct, [facility] [address] [id number] [address] [place] [address], [place] [address] September, [facility] [address] [id number] [address] [place] [address], [place] [address] September, [facility] [address] [id number] [address] [place] [address], [place] [address] September, [facility] [address] [id number] [address] [place] [address], [place] [address] September, [facility] [address] [id number] [address] [place] [address], [place] [address] Aug, [facility] [address] [id number] [address] [place] [address], [place] [address] Aug, [facility] [address] [id number] [address] [place] [address], [place] [address] Jul, [facility] [address] [id number] [address] [place] [address], [place] [address] Jul, [facility] [address] [id number] [address] [place] [address] 16 Jul, 2014 [facility] [address] [id number] [address] [place] [address] 16 Jul, 2014 [facility] [address] [id number] [facility] [place] [address] 16 Jul, 2014 [facility] [address] [id number] [address] [place] [address], [place] [address] 16 Jul, 2014 [facility] [address] [id number] [address] [place] [address], [place] [address] 16 Jul, 2014 [facility] [address] [id number] [address] [place] [address], [place] [address] 16 Jul, 2014 [facility] [address] [id number] [address] [place] [address], [place] [address] 16 Jul, 2014 [facility] [address] [id number] [address] [place] [address], [place] [address] 13 Jul, 2014 [facility] [address] [id number] [address] [place] [address], [place] [address] 13 Jul, 2014 [facility] [address] [id number] [address] [place] [address], [place] [address] 09 Jul, 2014 [facility] [address] [id number] [address] [place] [address], [place] [address] 09 Jul, 2014 [facility] [address] [id number] [address] [place] [address], [place] [address] 17 Jul, 2014 [facility] [address] [id number] [address] [place] [address], [place] [address] 17 Jul, 2014 [facility] [address] [id number] [address] [place] [address], [place] [address] 16 Jul, 2014 [facility] [address] [id number] [address] [place] [address], [place] [address] 16 Jul, 2014 [facility] [address] [id number] [address] [place] [address], [place] [address] 16 Jul, 2014 [facility] [address] [id number] [address] [place] [address], [place] [address] 16 Jul, 2014 [facility] [address] [id number] [address] [place] [address], [place] [address] 16 Jul, 2014 [facility] [address] [id number] [address] [place] [address], [place] [address] Jul, 2014 [facility] [address] [id number] [address] [place] [address], [place] [address] 16 Jul, 2014 [facility] [address] [id number] [address] [place] [address], [place] [address] 16 Jul, 2014 [facility] [address] [id number] [address] [place] [address], [place] [address] 16 Jul, 2014 [facility] [address] [id number] [address] [place] [address], [place] [address] Jul, 2014 [facility] [address] [id number] [address] [place] [address], [place] [address] Jul, 2014 [facility] [address] [id number] [address] [place] [address], [place] [address] Jul, 2014 [facility] [address] [id number] [address] [place] [address], [place] [address] Jul, 2014 [facility] [address] [id number] [address] [place] [address], [place] [address] Jul, 2014 [facility] [address] [id number] [address] [place] [address], [place] [address] May, [facility] [address] [id number] [address] [place] [address], [place] [address] May, [facility] [address] [id number] [address] [place] [address], [place] [address] May, [facility] [address] [id number] [address] [place] [address], [place] [address] May, [facility] [address] [id number] [address] [place] [address], [place] [address] May, [facility] [address] [id number] [address] [place] [address] [place] [address] May, [facility] [address] [id number] [address] [place] [address], [place] [address] May, [facility] [address] [id number] [address] [place] [address], [place] [address] May, [facility] [address] [id number] [address] [place] [address], [place] [address] May, [facility] [address] [id number] [address] [place] [address], [place] [address] May, [facility] [address] [id number] [address] [place] [address], [place] [address] Apr, [facility] [address] [id number] [address] [place] [address], [place] [address] Apr, [facility] [address] [id number] [address] [place] [address], [place] [address] Apr, [facility] [address] [id number] [address] [place] [address], [place] [address] Apr, [facility] [address] [id number] [address] [place] [address], [place] [address] Apr, [facility] [address] [id number] [address] [place] [address], [place] [address] Apr, [facility] [address] [id number] [address] [place] [address], [place] [address] Mar, [facility] [address] [id number] [address] [place] [address], [place] [address] Mar, [facility] [address] [id number] [address] [place] [address], [place] [address] Mar, [facility] [address] [id number] [address] [place] [address], [place] [address] Mar, [facility] [address] [id number] [address] [place] [address], [place] [address] Mar, [facility] [address] [id number] [address] [place] [address], [place] [address] Mar, [facility] [address] [id number] [address] [place] [address], [place] [address] Mar, [facility] [address] [id number] [address] [place] [address], [place] [address] Mar, [facility] [address] [id number] [address] [place] [address], [place] [address] Mar, [facility] [address] [id number] [address] [place] [address], [place] [address] Mar, [facility] [address] [id number] [address] [place] [address], [place] [address] Mar, [facility] [address] [id number] [address] [place] [address], [place] [address] Feb, [facility] [address] [id number] [address] [place] [address], [place] [address] Feb, [facility] [address] [id number] [address] [place] [address], [place] [address] Feb, [facility] [address] [id number] [address] [place] [address], [place] [address] Feb, [facility] [address] [id number] [address] [place] [address], [place] [address] Feb, [facility] [address] [id number] [address] [place] [address], [place] [address] Feb, [facility] [address] [id number] [address] [place] [address], [place] [address] Feb, [facility] [address] [id number] [address] [place] [address], [place] [address] Feb, [facility] [address] [id number] [address] [place] [address], [place] [address] Feb, [facility] [address] [id number] [address] [place] [address], [place] [address] Feb, [facility] [address] [id number] [facility] [place] [address] Jan, [facility] [address] [id number] [address] [place] [address], [place] [address] Jan, [facility] [address] [id number] [address] [place] [address], [place] [address] Jan, [facility] [address] [id number] [address] [place] [address], [place] [address] 16 Jan, 2014 [facility] [address] [id number] [address] [place] [address], [place] [address] Jan, [facility] [address] [id number] [address] [place] [address], [place] [address] Jan, [facility] [address] [id number] [address] [place] [address], [place] [address] Jan, [facility] [address] [id number] [address] [place] [address], [place] [address] Dec, [facility] [address] [id number] [address] [place] [address], [place] [address] Dec, [facility] [address] [id number] [address] [place] [address], [place] [address] Dec, [facility] [address] [id number] [address] [place] [address], [place] [address] Dec, [facility] [address] [id number] [address] [place] [address], [place] [address] Dec, [facility] [address] [id number] [address] [place] [address], [place] [address] Dec, [facility] [address] [id number] [address] [place] [address], [place] [address] Dec, [facility] [address] [id number] [address] [place] [address], [place] [address] Dec, [facility] [address] [id number] [address] [place] [address], [place] [address] Oct, [facility] [address] [id number] [address] [place] [address], [place] [address] Oct, [facility] [address] [id number] [address] [place] [address], [place] [address] September, [facility] [address] [id number] [address] [place] [address], [place] [address] September, [facility] [address] [id number] [address] [place] [address], [place] [address] September, [facility] [address] [id number] [address] [place] [address], [place] [address] September, [facility] [address] [id number] [address] [place] [address], [place] [address] September, [facility] [address] [id number] [address] [place] [address], [place] [address] September, [facility] [address] [id number] [address] [place] [address], [place] [address] September, [facility] [address] [id number] [address] [place] [address], [place] [address] Aug, [facility] [address] [id number] [address] [place] [address], [place] [address] Aug, [facility] [address] [id number] [address] [place] [address], [place] [address] Jul, [facility] [address] [id number] [address] [place] [address], [place] [address] Jul, [facility] [address] [id number] [address] [place] [address], [place] [address] Jul, [facility] [address] [id number] [address] [place] [address], [place] [address] 17 Jul, 2013 [facility] [address] [id number] [address] [place] [address], [place] [address] 14 Jul, 2013 [facility] [address] [id number] [address] [place] [address], [place] [address] 14 Jul, 2013 [facility] [address] [id number] [address] [place] [address], [place] [address] 03 Jul, 2013 [facility] [address] [id number] [address] [place] [address], [place] [address] Jul, [facility] [address] [id number] [address] [place] [address], [place] [address] 15 May, 2013 [facility] [address] [id number] [address] [place] [address], [place] [address] 15 May, 2013 [facility] [address] [id number] [address] [place] [address], [place] [address] May, [facility] [address] [id number] [address] [place] [address], [place] [address] May, [facility] [address] [id number] [address] [place] [address], [place] [address] 18 Apr, 2013 [facility] [address] [id number] [address] [place] [address], [place] [address] Mar, [facility] [address] [id number] [address] [place] [address], [place] [address] Mar, [facility] [address] [id number] [address] [place] [address], [place] [address] Mar, [facility] [address] [id number] [address] [place] [address], [place] [address] Mar, [facility] [address] [id number] [address] [place] [address], [place] [address] Mar, [facility] [address] [id number] [address] [place] [address], [place] [address] 18 Mar, 2013 [facility] [address] [id number] [address] [place] [address], [place] [address] Mar, [facility] [address] [id number] [address] [place] [address], [place] [address] Mar, [facility] [address] [id number] [address] [place] [address], [place] [address] Mar, [facility] [address] [id number] [address] [place] [address], [place] [address] Mar, [facility] [address] [id number] [address] [place] [address], [place] [address] Mar, [facility] [address] [id number] [address] [place] [address], [place] [address] Mar, [facility] [address] [id number] [address] [place] [address], [place] [address] Feb, [facility] [address] [id number] [address] [place] [address], [place] [address] Feb, [facility] [address] [id number] [address] [place] [address], [place] [address] Feb, [facility] [address] [id number] [address] [place] [address], [place] [address] Feb, [facility] [address] [id number] [address] [place] [address], [place] [address] Feb, [facility] [address] [id number] [address] [place] [address], [place] [address] Jan, [facility] [address] [id number] [address] [place] [address], [place] [address] Dec, [facility] [address] [id number] [address] [place] [address], [place] [address] Dec, [facility] [address] [id number] [address] [place] [address], [place] [address] Dec, [facility] [address] [id number] [address] [place] [address], [place] [address] Nov, [facility] [address] [id number] [address] [place] [address], [place] [address] Nov, [facility] [address] [id number] [address] [place] [address], [place] [address] Nov, [facility] [address] [id number] [address] [place] [address], [place] [address] Oct, [facility] [address] [id number] [address] [place] [address], [place] [address] Oct, [facility] [address] [id number] [address] [place] [address], [place] [address] Oct, [facility] [address] [id number] [address] [place] [address], [place] [address] September, [facility] [address] [id number] [address] [place] [address], [place] [address] September, [facility] [address] [id number] [address] [place] [address], [place] [address] September, [facility] [address] [id number] [address] [place] [address], [place] [address] September, [facility] [address] [id number] [address] [place] [address], [place] [address] September, [facility] [address] [id number] [address] [place] [address], [place] [address] Aug, [facility] [address] [id number] [address] [place] [address], [place] [address] Aug, [facility] [address] [id number] [address] [place] [address], [place] [address] Aug, [facility] [address] [id number] [address] [place] [address], [place] [address] Jul, [facility] [address] [id number] [address] [place] [address], [place] [address] Jul, [facility] [address] [id number] [address] [place] [address], [place] [address] Jul, [facility] [address] [id number] [address] [place] [address], [place] [address] Jul, [facility] [address] [id number] [address] [place] [address], [place] [address] Jul, [facility] [address] [id number] [address] [place] [address], [place] [address] Jul, [facility] [address] [id number] [address] [place] [address], [place] [address] Jul, [facility] [address] [id number] [address] [place] [address], [place] [address] 14 May, 2012 [facility] [address] [id number] [address] [place] [address], [place] [address] May, [facility] [address] [id number] [address] [place] [address], [place] [address] May, [facility] [address] [id number] [address] [place] [address], [place] [address] Apr, [facility] [address] [id number] [address] [place] [address], [place] [address] Apr, [facility] [address] [id number] [address] [place] [address], [place] [address] Apr, [facility] [address] [id number] [address] [place] [address], [place] [address] 17 Apr, 2012 [facility] [address] [id number] [address] [place] [address], [place] [address] Apr, [facility] [address] [id number] [address] [place] [address], [place] [address] 29 Mar, 2012 [facility] [address] [id number] [address] [place] [address], [place] [address] 29 Mar, 2012 [facility] [address] [id number] [address] [place] [address], [place] [address] 15 Mar, 2012 [facility] [address] [id number] [address] [place] [address], [place] [address] 15 Mar, 2012 [facility] [address] [id number] [address] [place] [address], [place] [address] Feb, [facility] [address] [id number] [address] [place] [address], [place] [address] Feb, [facility] [address] [id number] [address] [place] [address], [place] [address] Feb, [facility] [address] [id number] [address] [place] [address], [place] [address] Feb, [facility] [address] [id number] [address] [place] [address], [place] [address] Feb, [facility] [address] [id number] [address] [place] [address], [place] [address] Jan, [facility] [address] [id number] [address] [place] [address], [place] [address] Dec, [facility] [address] [id number] [address] [place] [address], [place] [address] Dec, [facility] [address] [id number] [address] [place] [address], [place] [address] Dec, [facility] [address] [id number] [address] [place] [address], [place] [address] Nov, [facility] [address] [id number] [address] [place] [address], [place] [address] Nov, [facility] [address] [id number] [address] [place] [address], [place] [address] Nov, [facility] [address] [id number] [address] [place] [address], [place] [address] Oct, [facility] [address] [id number] [address] [place] [address], [place] [address] Oct, [facility] [address] [id number] [address] [place] [address], [place] [address] Oct, [facility] [address] [id number] [address] [place] [address], [place] [address] Oct, [facility] [address] [id number] [address] [place] [address], [place] [address] September, [facility] [address] [id number] [address] [place] [address], [place] [address] September, [facility] [address] [id number] [address] [place] [address], [place] [address] Aug, [facility] [address] [id number] [address] [place] [address], [place] [address] Aug, [facility] [address] [id number] [address] [place] [address], [place] [address] Aug, [facility] [address] [id number] [address] [place] [address], [place] [address] Aug, [facility] [address] [id number] [address] [place] [address], [place] [address] Aug, [facility] [address] [id number] [address] [place] [address], [place] [address] Aug, [facility] [address] [id number] [address] [place] [address], [place] [address] Aug, [facility] [address] [id number] [address] [place] [address], [place] [address] Jul, [facility] [address] [id number] [address] [place] [address], [place] [address] Jul, [facility] [address] [id number] [address] [place] [address], [place] [address] Jul, [facility] [address] [id number] [address] [place] [address], [place] [address] May, [facility] [address] [id number] [address] [place] [address], [place] [address] May, [facility] [address] [id number] [address] [place] [address], [place] [address] May, [facility] [address] [id number] [address] [place] [address] Apr, [facility] [address] [id number] [address] [place] [address] Apr, [facility] [address] [id number] [address] [place] [address] Mar, [facility] [address] [id number] [address] [place] [address] Mar, [facility] [address] [id number] [address] [place] [address] Mar, [facility] [address] [id number] [address] [place] [address] Mar, [facility] [address] [id number] [address] [place] [address] Mar, [facility] [address] [id number] [address] [place] [address] Mar, [facility] [address] [id number] [address] [place] [address] Feb, [facility] [address] [id number] [address] [place] [address] Feb, [facility] [address] [id number] [address] [place] [address] Feb, IMMUNIZATIONS No Known Immunizations SOCIAL HISTORY [...] infections x 3 2016 Hospitalization History [facility] - right big t oe removed 2019
--- OUTSIDE RECORDS SUMMARY | 2020-01-03 08:18 | XMS REPORT ---
Author Author Tra SILVERIO Organization [facility] Address [address] [place] [address] Care Team Providers Care Ratoprinter Name Role Phone FERNY SILVERIO Unavailable PROBLEMS Type Condition ICD9-CM Code MZD99-YD Code Onset Dates Condition S tatus SNOMED Code Problem Hypertension I10 Active 6771601 3 Problem Hypoxia R09.02 Active 780838113 Problem COPD (chronic obstructive pulmonary disease) J44.9 Active 85914457 Problem Lumbar radiculopathy, chronic M54.16 Active 362439515 Problem nursing home current use of insulin Z79.4 Active 127843712 Problem Recurrent major depressive disorder, in full remission F33.42 Active 629303333 Problem Hyperlipidemia, unspecified E78.5 Ac tive 34485972 Problem PAD (peripheral artery disease) I73.9 Active 795231729 Problem Type 2 diabetes mellitus with other specified complication E11.69 Active 965433975419 Problem Anxiety F41.9 Active 97845641 Problem Type 2 diabetes mellitus wit h diabetic peripheral angiopathy without gangrene E11.51 Active 656012043 Problem ED (erectile dysfunction) of organic origin N52.9 Active 285124957 Problem Arthritis M19.90 Active 4297279 Problem Morbid (severe) obesity due to excess calories E66 .01 Active 702535656 ALLERGIES No Information ENCOUNTERS Encounter Location Date Diagnosis [facility] [address] [id number] [place] [address] Aug, [facility] [address] [facility] [id number] [address] [place] [phone] 24 Aug, 2019 Back pain M54.9 and Lumbar r adiculopathy, chronic M54.16 [facility] [address] [facility] [id number] [address] [place] [id number] Aug, Anxiety F41.9 ; Back pain M5 4.9 and Lumbar radiculopathy, chronic M54.16 [facility] [address] [id number] [address] [place] [phone] 09 Aug, 2019 Lumbar radiculopathy, chroni c M54.16 ; Anxiety F41.9 ; Type 2 diabetes mellitus with other specified complication E11.69 and Hypertension I10 [facility] [address] [id number] [address] [place] [phone] 30 Jul, 2019 [facility] [address] [id number] [address] [place] [phone] 27 Jul, 2019 Lumbar radiculopathy, chroni c M54.16 ; Back pain M54.9 and Anxiety F41.9 [facility] [address] [id number] [address] [place] [id number] 23 Jul, 2019 [facility] [address] [id number] [address] [place] [id number] 13 Jul, 2019 Anxiety F41.9 [facility] [address] [id number] [address] [place] [id number] 12 Jul, 2019 Anxiety F41.9 [facility] [address] [id number] [address] [place] [phone] 02 Jul, 2019 Back pain M54.9 [facility] [address] [id number] [address] [place] [phone] 02 Jul, 2019 Back pain M54.9 [facility] [address] [id number] [address] [place] [phone] 28 Jul, 2019 Lumbar radiculopathy, chroni c M54.16 [facility] [address] [id number] [address] [place] [id number] 28 Jul, 2019 Back pain M54.9 [facility] [address] [id number] [address] [place] [phone] 07 Jul, 2019 [facility] Z00.00 ; COPD (chronic [...] diabetes mellitus with other specified complication E11.69 [facility] [address] [id number] [address] [place] [phone] Jul, Back pain M54.9 [facility] [address] [id number] [address] [place] [phone] Jul, Anxiety F41.9 [place] [facility] [address] [id number] [address] [place] [phone] May, [place] [facility] [address] [id number] [address] [place] [phone] May, Lumbar radiculopathy, chroni c M54.16 [place] [address] [id number] [address] [place] [phone] May, Back pain M54.9 [place] [address] [id number] [address] [place] [phone] May, [place] [address] [facility] [id number] [address] [place] [phone] May, Back pain M54.9 and Anxiety F41.9 [place] [address] [facility] [id number] [address] [place] [phone] May, [place] [address] [id number] [address] [place] [phone] May, Type 2 diabetes mellitus wit h diabetic peripheral angiopathy without gangrene E11.51 ; Arthritis M19.90 ; ED (erectile dysfunction) of organic origin N52.9 ; Morbid (severe) obesity due to excess calories E66.01 and Lumbar radiculopathy, chronic M54.16 [place] [address] [id number] [address] [place] [id number] May, Diabetes E11.9 [facility] [address] [id number] [address] [place] [id number] Apr, [facility] [address] [id number] [address] [place] [phone] Apr, Back pain M54.9 [facility] [address] [id number] [address] [place] [id number] Apr, [facility] [address] [id number] [address] [place] [phone] Apr, Anxiety F41.9 [facility] [address] [id number] [address] [place] [phone] Apr, Back pain M54.9 and Lumbar r adiculopathy, chronic M54.16 [facility] [address] [facility] [id number] [address] [place] [phone] Apr, Back pain M54.9 ; Anxiety F4 1.9 and Lumbar radiculopathy, chronic M54.16 [facility] [address] [facility] [id number] [address] [place] [phone] Mar, [facility] [address] [facility] [id number] [address] [place] [phone] Mar, [facility] [address] [facility] [id number] [address] [place] [phone] Mar, Back pain M54.9 [facility] [address] [facility] [id number] [address] [place] [phone] Mar, [facility] [address] [facility] [id number] [address] [place] [phone] Feb, Type 2 diabetes mellitus wit h diabetic peripheral angiopathy without gangrene E11.51 ; Lumbar radiculopathy, chronic M54.16 ; ED (erectile dysfunction) of organic origin N52.9 ; Encounter for immunization Z23 ; COPD (chronic obstructive pulmonary disease) J44.9 and Anxiety F41.9 [facility] [address] [id number] [address] [place] [phone] Feb, Back pain M54.9 [facility] [address] [id number] [address] [place] [phone] Feb, [facility] [address] [id number] [address] [place] [phone] Feb, [facility] [address] [id number] [address] [place] [phone] Feb, [facility] [address] [id number] [address] [place] [id number] Feb, Back pain M54.9 [facility] [address] [id number] [address] [place] [phone] Feb, [facility] [address] [id number] [address] [place] [phone] Jan, Anxiety F41.9 [facility] [address] [id number] [address] [place] [phone] Jan, Anxiety F41.9 [facility] [address] [id number] [address] [place] [phone] Jan, [facility] [address] [id number] [address] [place] [phone] Jan, [facility] [address] [id number] [address] [place] [id number] Jan, Back pain M54.9 [facility] [address] [id number] [address] [place] [id number] Jan, [facility] [address] [id number] [address] [place] [id number] Dec, Acute non-recurrent frontal sinusitis J01.10 [facility] [address] [id number] [address] [place] [phone] Dec, Acute non-recurrent frontal sinusitis J01.10 [facility] [address] [id number] [address] [place] [phone] Dec, Type 2 diabetes mellitus wit h diabetic peripheral angiopathy without gangrene E11.51 ; Lumbar radiculopathy, chronic M54.16 ; Recurrent major depressive disorder, in full remission F33.42 and Anxiety F41.9 [facility] [address] [id number] [address] [place] [phone] Dec, [facility] [address] [id number] [address] [place] [phone] Nov, Anxiety F41.9 [facility] [address] [id number] [address] [place] [id number] Nov, [facility] [address] [id number] [address] [place] [phone] Nov, Back pain M54.9 [facility] [address] [id number] [address] [place] [phone] Nov, [facility] [address] [id number] [address] [place] [phone] Nov, Back pain M54.9 [facility] [address] [id number] [address] [place] [phone] Nov, Anxiety F41.9 [facility] [address] [id number] [address] [place] [phone] Nov, [facility] [address] [id number] [address] [place] [phone] Oct, Back pain M54.9 [facility] [address] [id number] [address] [place] [phone] Oct, [facility] [address] [id number] [address] [place] [phone] Oct, [facility] [address] [id number] [address] [place] [phone] Oct, [facility] [address] [id number] [address] [place] [phone] September, Back pain M54.9 [facility] [address] [id number] [address] [place] [phone] September, [facility] [address] [id number] [address] [place] [phone] September, [facility] [address] [id number] [address] [place] [phone] September, [facility] [address] [id number] [address] [place] [phone] Aug, Back pain M54.9 [facility] [address] [id number] [address] [place] [phone] Aug, Anxiety F41.9 [facility] [address] [id number] [address] [place] [phone] Aug, [facility] [address] [id number] [address] [place] [phone] Aug, Pressure ulcer of other site , stage 3 L89.893 and COPD (chronic obstructive pulmonary disease) J44.9 [facility] [address] [id number] [address] [place] [phone] Aug, History of smoking Z87.891 [facility] [address] [id number] [address] [place] [phone] Jul, Type 2 diabetes mellitus wit h diabetic peripheral angiopathy without gangrene E11.51 [facility] [address] [id number] [address] [place] [phone] Jul, Back pain M54.9 [facility] [address] [id number] [address] [place] [phone] Jul, Anxiety F41.9 [facility] [address] [id number] [address] [place] [phone] Jul, [facility] [address] [id number] [address] [place] [phone] Jul, Back pain M54.9 [facility] [address] [id number] [address] [place] [phone] Jul, Back pain M54.9 [facility] [address] [id number] [address] [place] [id number] Jul, Lumbar radiculopathy, chroni c M54.16 ; Hypertension I10 and Type 2 diabetes mellitus with diabetic peripheral angiopathy without gangrene E11.51 [facility] [address] [id number] [address] [place] [phone] Jul, Back pain M54.9 [facility] [address] [id number] [address] [place] [phone] Jul, Back pain M54.9 and Anxiety F41.9 [place] [address] [id number] [address] [place] [phone] Jul, [facility] [address] [id number] [address] [place] [phone] May, Back pain M54.9 and Anxiety F41.9 [place] [address] [id number] [address] [place] [phone] May, [facility] [address] [id number] [address] [place] [phone] Apr, Radiculopathy of lumbar rhiannon on M54.16 ; Back pain M54.9 and Anxiety F41.9 [facility] [address] [id number] [address] [place] [phone] Apr, Diabetes E11.9 ; Muscle spas m M62.838 and Lumbar radiculopathy, chronic M54.16 [facility] [address] [id number] [address] [place] [phone] Apr, [facility] [address] [id number] [address] [place] [phone] Apr, [facility] [address] [id number] [address] [place] [id number] 30 Mar, 2018 Back pain M54.9 and Anxiety F41.9 [facility] [address] [id number] [address] [place] [phone] Mar, [facility] [address] [facility] [id number] [address] [place] [phone] Mar, [facility] [address] [id number] [address] [place] [phone] Mar, [facility] [address] [facility] [id number] [address] [place] [phone] Mar, Encounter for immunization Z 23 [facility] [address] [facility] [id number] [address] [place] [phone] 31 Feb, 2018 Back pain M54.9 and Anxiety F41.9 [place] [address] [facility] [id number] [address] [place] [phone] 04 Feb, 2018 Back pain M54.9 and Anxiety F41.9 [place] [address] [facility] [id number] [address] [place] [phone] 06 Jan, 2018 Back pain M54.9 and Anxiety F41.9 [place] [address] [facility] [id number] [address] [place] [phone] 06 Jan, 2018 [place] [address] [facility] [id number] [address] [place] [phone] Dec, [facility] [address] [facility] [id number] [address] [place] [id number] Dec, Back pain M54.9 and Anxiety F41.9 [place] [address] [facility] [id number] [address] [place] [id number] 13 Dec, 2017 Diabetes E11.9 ; Type 2 diab etes mellitus with diabetic peripheral angiopathy without gangrene E11.51 ; Lumbar radiculopathy, chronic M54.16 ; COPD (chronic obstructive pulmonary disease) J44.9 and Anxiety F41.9 [place] [address] [id number] [address] [place] [phone] Dec, Back pain M54.9 and Anxiety F41.9 [facility] [address] [facility] [id number] [address] [place] [phone] Nov, Back pain M54.9 and Anxiety F41.9 [facility] [address] [facility] [id number] [address] [place] [phone] Oct, [facility] [address] [facility] [id number] [address] [place] [phone] Oct, Back pain M54.9 and Anxiety F41.9 [place] [address] [facility] [id number] [address] [place] [phone] September, Anxiety F41.9 and Back pain M54.9 [place] [address] [facility] [id number] [address] [place] [phone] September, Diabetes E11.9 ; Hypertensio n I10 ; COPD (chronic obstructive pulmonary disease) J44.9 and Lumbar radiculopathy, chronic M54.16 [place] [address] [facility] [id number] [address] [place] [phone] September, Anxiety F41.9 [place] [address] [facility] [id number] [address] [place] [phone] Aug, [facility] [address] [facility] [id number] [address] [place] [phone] Aug, [facility] [address] [facility] [id number] [address] [place] [id number] Aug, Anxiety F41.9 and Back pain M54.9 [place] [address] [facility] [id number] [address] [place] [phone] Aug, Medicare annual wellness vis it, initial [...] nursing home current use of insulin Z79.4 [facility] [address] [id number] [address] [place] [phone] Jul, Back pain M54.9 [facility] [address] [id number] [address] [place] [phone] Jul, [facility] [address] [id number] [address] [place] [phone] Jul, Anxiety F41.9 and Back pain M54.9 [facility] [address] [id number] [address] [place] [phone] Jul, Diabetes E11.9 [facility] [address] [id number] [address] [place] [phone] May, [facility] [address] [id number] [address] [place] [phone] May, Diabetes E11.9 ; Anxiety F41 .9 ; Back pain M54.9 and COPD (chronic obstructive pulmonary disease) J44.9 [facility] [address] [id number] [address] [place] [phone] May, Back pain M54.9 [facility] [address] [id number] [address] [place] [phone] May, [facility] [address] [id number] [address] [place] [phone] Apr, Back pain M54.9 [facility] [address] [id number] [address] [place] [id number] Mar, Back pain M54.9 [facility] [address] [id number] [address] [place] [phone] Mar, [facility] [address] [id number] [address] [place] [phone] 16 Mar, 2017 [facility] [address] [id number] [address] [place] [phone] 14 Mar, 2017 Radiculopathy of lumbar rhiannon on M54.16 [facility] [address] [id number] [address] [place] [phone] 13 Mar, 2017 [facility] [address] [facility] [id number] [address] [place] [phone] 07 Mar, 2017 Encounter for immunization Z 23 and Lumbar radiculopathy, chronic M54.16 [facility] [address] [id number] [address] [place] [phone] 01 Mar, 2017 Back pain M54.9 and Anxiety F41.9 [facility] [address] [id number] [address] [place] [phone] 10 Feb, 2017 Acute bilateral low back boy n with left-sided sciatica M54.42 and Acute bilateral low back pain with right-sided sciatica M54.41 [facility] [address] [id number] [address] [place] [phone] Feb, [facility] [address] [id number] [address] [place] [id number] Feb, Back pain M54.9 [facility] [address] [id number] [address] [place] [id number] 05 Jan, 2017 Back pain M54.9 and Anxiety F41.9 [facility] [address] [id number] [address] [place] [id number] 05 Jan, 2017 Diabetes E11.9 [facility] [address] [id number] [address] [place] [id number] Dec, Diabetes E11.9 ; Back pain M 54.9 ; Anxiety F41.9 and Insulin long- term use Z79.4 [facility] [address] [id number] [address] [place] [phone] Dec, Anxiety F41.9 [facility] [address] [id number] [address] [place] [id number] Dec, Back pain M54.9 [facility] [address] [id number] [address] [place] [id number] Nov, Back pain M54.9 [facility] [address] [id number] [address] [place] [phone] Oct, Back pain M54.9 and Anxiety F41.9 [facility] [address] [id number] [address] [place] [phone] September, Back pain M54.9 [facility] [address] [id number] [address] [place] [phone] September, Back pain M54.9 and Anxiety F41.9 [facility] [address] [id number] [address] [place] [phone] Aug, Diabetes E11.9 ; Anxiety F41 .9 ; Back pain M54.9 and PAD (peripheral artery disease) I73.9 [facility] [address] [id number] [address] [place] [phone] Aug, Anxiety F41.9 [facility] [address] [id number] [address] [place] [phone] 14 Aug, 2016 Back pain M54.9 [facility] [address] [id number] [address] [place] [phone] Jul, Back pain M54.9 [facility] [address] [id number] [address] [place] [id number] 13 Jul, 2016 Back pain M54.9 [facility] [address] [id number] [address] [place] [phone] 23 Jul, 2016 [facility] pain M54.9 [facility] [facility] [address] [id number] [address] [place] [id number] 16 Jul, 2016 Dorsalgia M54.9 [facility] [address] [id number] [address] [place] [id number] 14 Jul, 2016 [facility] [address] [id number] [address] [place] [phone] May, Back pain M54.9 [facility] [address] [id number] [address] [place] [id number] May, Diabetes E11.9 ; Anxiety F41 .9 ; Port catheter in place Z95.828 ; Encounter for immunization Z23 and Insulin long-term use Z79.4 [facility] [address] [id number] [address] [place] [phone] Apr, Back pain M54.9 [facility] [address] [id number] [address] [place] [phone] Apr, Back pain M54.9 [facility] [address] [id number] [address] [place] [id number] Apr, [facility] [address] [id number] [address] [place] [id number] Apr, Back pain M54.9 [facility] [address] [id number] [address] [place] [id number] Mar, COPD (chronic obstructive pu lmonary disease) J44.9 [facility] [address] [id number] [address] [place] [phone] Feb, [facility] [address] [id number] [address] [place] [phone] 30 Jan, 2016 [facility] [address] [id number] [address] [place] [phone] Jan, [facility] [address] [id number] [address] [place] [phone] Jan, [facility] [address] [id number] [address] [place] [id number] Jan, [facility] [address] [id number] [address] [place] [phone] Dec, Diabetes E11.9 ; Hypoxia R09 .02 and Back pain M54.9 [facility] [address] [id number] [address] [place] [id number] Dec, [facility] [address] [id number] [address] [place] [id number] Nov, [facility] [address] [id number] [address] [place] [id number] Oct, Anxiety F41.9 [facility] [address] [id number] [address] [place] [phone] Oct, Back pain M54.9 [facility] [address] [id number] [address] [place] [id number] September, Back pain M54.9 [facility] [address] [id number] [address] [place] [phone] September, Diabetes E11.9 [facility] [address] [id number] [address] [place] [phone] September, [facility] [address] [id number] [address] [place] [id number] September, Diabetes E11.9 ; Insulin sarai g-term use Z79.4 and Back pain M54.9 [facility] [address] [id number] [address] [place] [phone] Aug, Back pain M54.9 [facility] [address] [id number] [address] [place] [id number] Aug, Back pain M54.9 ; Anxiety F4 1.9 and Arthropathy, unspecified M12.9 [facility] [address] [id number] [address] [place] [id number] Jul, Back pain M54.9 [facility] [address] [facility] [id number] [address] [place] [phone] Jul, Anxiety F41.9 [facility] [address] [facility] [id number] [address] [place] [phone] Jul, Back pain M54.9 [facility] [address] [facility] [id number] [address] [place] [phone] Jul, [facility] [address] [facility] [id number] [address] [place] [id number] Jul, [facility] [address] [facility] [id number] [address] [place] [phone] May, Back pain M54.9 ; Diabetes E 11.9 ; Insulin long-term use Z79.4 ; COPD (chronic obstructive pulmonary disease) J44.9 and Hypertension I10 [facility] [address] [facility] [id number] [address] [place] [id number] May, Chronic pain G89.29 [facility] [address] [facility] [id number] [address] [place] [phone] Apr, [facility] [address] [facility] [id number] [address] [place] [phone] Apr, [facility] [address] [facility] [id number] [address] [place] [phone] Mar, [facility] [address] [facility] [id number] [address] [place] [phone] Mar, Encounter for immunization Z 23 and Diabetes E11.9 [facility] [address] [facility] [id number] [address] [place] [phone] Feb, [facility] [address] [facility] [id number] [address] [place] [phone] Feb, [facility] [address] [facility] [id number] [address] [place] [phone] Jan, [facility] [address] [facility] [id number] [address] [place] [phone] Jan, [facility] [address] [facility] [id number] [address] [place] [phone] Dec, [facility] [address] [id number] [address] [place] [address], [place] [address] Dec, [facility] [address] [id number] [address] [place] [address], [place] [address] Dec, Unspecified arthropathy, sit e unspecified 716.90 and Diabetes mellitus type 2, uncontrolled 250.02 [facility] [address] [id number] [address] [place] [address], [place] [address] Dec, [facility] [address] [id number] [address] [place] [address], [place] [address] Nov, [facility] [address] [id number] [address] [place] [address], [place] [address] Oct, [facility] [address] [id number] [address] [place] [address], [place] [address] September, [facility] [address] [id number] [address] [place] [address], [place] [address] September, [facility] [address] [id number] [address] [place] [address], [place] [address] September, [facility] [address] [id number] [address] [place] [address], [place] [address] September, [facility] [address] [id number] [address] [place] [address], [place] [address] Aug, [facility] [address] [id number] [address] [place] [address], [place] [address] Aug, [facility] [address] [id number] [address] [place] [address], [place] [address] Jul, [facility] [address] [id number] [address] [place] [address], [place] [address] Jul, [facility] [address] [id number] [address] [place] [phone] 16 Jul, 2014 [facility] [address] [id number] [address] [place] [id number] 16 Jul, 2014 [facility] [address] [id number] [facility] [place] [address] 16 Jul, 2014 [facility] [address] [id number] [address] [place] [address], [place] [address] 16 Jul, 2014 [facility] [address] [id number] [address] [place] [address], [place] [address] 16 Jul, 2014 [facility] [address] [id number] [address] [place] [address], [place] [address] 16 Jul, 2014 [facility] [address] [id number] [address] [place] [address], [place] [address] 16 Jul, 2014 [facility] [address] [id number] [address] [place] [address], [place] [address] 13 Jul, 2014 [facility] [address] [id number] [address] [place] [address], [place] [address] 13 Jul, 2014 [facility] [address] [id number] [address] [place] [address], [place] [address] 09 Jul, 2014 [facility] [address] [id number] [address] [place] [address], [place] [address] 09 Jul, 2014 [facility] [address] [id number] [address] [place] [address], [place] [address] 17 Jul, 2014 [facility] [address] [id number] [address] [place] [address], [place] [address] 17 Jul, 2014 [facility] [address] [id number] [address] [place] [address], [place] [address] 16 Jul, 2014 [facility] [address] [id number] [address] [place] [address], [place] [address] 16 Jul, 2014 [facility] [address] [id number] [address] [place] [address], [place] [address] 16 Jul, 2014 [facility] [address] [id number] [address] [place] [address], [place] [address] 16 Jul, 2014 [facility] [address] [id number] [address] [place] [address], [place] [address] 16 Jul, 2014 [facility] [address] [id number] [address] [place] [address], [place] [address] Jul, 2014 [facility] [address] [id number] [address] [place] [address], [place] [address] 16 Jul, 2014 [facility] [address] [id number] [address] [place] [address], [place] [address] 16 Jul, 2014 [facility] [address] [id number] [address] [place] [address], [place] [address] 16 Jul, 2014 [facility] [address] [id number] [address] [place] [address], [place] [address] Jul, 2014 [facility] [address] [id number] [address] [place] [address], [place] [address] Jul, 2014 [facility] [address] [id number] [address] [place] [address], [place] [address] Jul, 2014 [facility] [address] [id number] [address] [place] [address], [place] [address] Jul, 2014 [facility] [address] [id number] [address] [place] [address], [place] [address] Jul, 2014 [facility] [address] [id number] [address] [place] [address], [place] [address] May, [facility] [address] [id number] [address] [place] [address], [place] [address] May, [facility] [address] [id number] [address] [place] [address], [place] [address] May, [facility] [address] [id number] [address] [place] [address], [place] [address] May, [facility] [address] [id number] [address] [place] [address], [place] [address] May, [facility] [address] [id number] [address] [place] [address] [place] [address] May, [facility] [address] [id number] [address] [place] [address], [place] [address] May, [facility] [address] [id number] [address] [place] [address], [place] [address] May, [facility] [address] [id number] [address] [place] [address], [place] [address] May, [facility] [address] [id number] [address] [place] [address], [place] [address] May, [facility] [address] [id number] [address] [place] [address], [place] [address] Apr, [facility] [address] [id number] [address] [place] [address], [place] [address] Apr, [facility] [address] [id number] [address] [place] [address], [place] [address] Apr, [facility] [address] [id number] [address] [place] [address], [place] [address] Apr, [facility] [address] [id number] [address] [place] [address], [place] [address] Apr, [facility] [address] [id number] [address] [place] [address], [place] [address] Apr, [facility] [address] [id number] [address] [place] [address], [place] [address] Mar, [facility] [address] [id number] [address] [place] [address], [place] [address] Mar, [facility] [address] [id number] [address] [place] [address], [place] [address] Mar, [facility] [address] [id number] [address] [place] [address], [place] [address] Mar, [facility] [address] [id number] [address] [place] [address], [place] [address] Mar, [facility] [address] [id number] [address] [place] [address], [place] [address] Mar, [facility] [address] [id number] [address] [place] [address], [place] [address] Mar, [facility] [address] [id number] [address] [place] [address], [place] [address] Mar, [facility] [address] [id number] [address] [place] [address], [place] [address] Mar, [facility] [address] [id number] [address] [place] [address], [place] [address] Mar, [facility] [address] [id number] [address] [place] [address], [place] [address] Mar, [facility] [address] [id number] [address] [place] [address], [place] [address] Feb, [facility] [address] [id number] [address] [place] [address], [place] [address] Feb, [facility] [address] [id number] [address] [place] [address], [place] [address] Feb, [facility] [address] [id number] [address] [place] [address], [place] [address] Feb, [facility] [address] [id number] [address] [place] [address], [place] [address] Feb, [facility] [address] [id number] [address] [place] [address], [place] [address] Feb, [facility] [address] [id number] [address] [place] [address], [place] [address] Feb, [facility] [address] [id number] [address] [place] [address], [place] [address] Feb, [facility] [address] [id number] [address] [place] [address], [place] [address] Feb, [facility] [address] [id number] [address] [place] [address], [place] [address] Feb, [facility] [address] [id number] [facility] [place] [address] Jan, [facility] [address] [id number] [address] [place] [address], [place] [address] Jan, [facility] [address] [id number] [address] [place] [address], [place] [address] Jan, [facility] [address] [id number] [address] [place] [address], [place] [address] 16 Jan, 2014 [facility] [address] [id number] [address] [place] [address], [place] [address] Jan, [facility] [address] [id number] [address] [place] [address], [place] [address] Jan, [facility] [address] [id number] [address] [place] [address], [place] [address] Jan, [facility] [address] [id number] [address] [place] [address], [place] [address] Dec, [facility] [address] [id number] [address] [place] [address], [place] [address] Dec, [facility] [address] [id number] [address] [place] [address], [place] [address] Dec, [facility] [address] [id number] [address] [place] [address], [place] [address] Dec, [facility] [address] [id number] [address] [place] [address], [place] [address] Dec, [facility] [address] [id number] [address] [place] [address], [place] [address] Dec, [facility] [address] [id number] [address] [place] [address], [place] [address] Dec, [facility] [address] [id number] [address] [place] [address], [place] [address] Dec, [facility] [address] [id number] [address] [place] [address], [place] [address] Oct, [facility] [address] [id number] [address] [place] [address], [place] [address] Oct, [facility] [address] [id number] [address] [place] [address], [place] [address] September, [facility] [address] [id number] [address] [place] [address], [place] [address] September, [facility] [address] [id number] [address] [place] [address], [place] [address] September, [facility] [address] [id number] [address] [place] [address], [place] [address] September, [facility] [address] [id number] [address] [place] [address], [place] [address] September, [facility] [address] [id number] [address] [place] [address], [place] [address] September, [facility] [address] [id number] [address] [place] [address], [place] [address] September, [facility] [address] [id number] [address] [place] [address], [place] [address] Aug, [facility] [address] [id number] [address] [place] [address], [place] [address] Aug, [facility] [address] [id number] [address] [place] [address], [place] [address] Jul, [facility] [address] [id number] [address] [place] [address], [place] [address] Jul, [facility] [address] [id number] [address] [place] [address], [place] [address] Jul, [facility] [address] [id number] [address] [place] [address], [place] [address] 17 Jul, 2013 [facility] [address] [id number] [address] [place] [address], [place] [address] 14 Jul, 2013 [facility] [address] [id number] [address] [place] [address], [place] [address] 14 Jul, 2013 [facility] [address] [id number] [address] [place] [address], [place] [address] 03 Jul, 2013 [facility] [address] [id number] [address] [place] [address], [place] [address] Jul, [facility] [address] [id number] [address] [place] [address], [place] [address] 15 May, 2013 [facility] [address] [id number] [address] [place] [address], [place] [address] 15 May, 2013 [facility] [address] [id number] [address] [place] [address], [place] [address] May, [facility] [address] [id number] [address] [place] [address], [place] [address] May, [facility] [address] [id number] [address] [place] [address], [place] [address] 18 Apr, 2013 [facility] [address] [id number] [address] [place] [address], [place] [address] Mar, [facility] [address] [id number] [address] [place] [address], [place] [address] Mar, [facility] [address] [id number] [address] [place] [address], [place] [address] Mar, [facility] [address] [id number] [address] [place] [address], [place] [address] Mar, [facility] [address] [id number] [address] [place] [address], [place] [address] Mar, [facility] [address] [id number] [address] [place] [address], [place] [address] 18 Mar, 2013 [facility] [address] [id number] [address] [place] [address], [place] [address] Mar, [facility] [address] [id number] [address] [place] [address], [place] [address] Mar, [facility] [address] [id number] [address] [place] [address], [place] [address] Mar, [facility] [address] [id number] [address] [place] [address], [place] [address] Mar, [facility] [address] [id number] [address] [place] [address], [place] [address] Mar, [facility] [address] [id number] [address] [place] [address], [place] [address] Mar, [facility] [address] [id number] [address] [place] [address], [place] [address] Feb, [facility] [address] [id number] [address] [place] [address], [place] [address] Feb, [facility] [address] [id number] [address] [place] [address], [place] [address] Feb, [facility] [address] [id number] [address] [place] [address], [place] [address] Feb, [facility] [address] [id number] [address] [place] [address], [place] [address] Feb, [facility] [address] [id number] [address] [place] [address], [place] [address] Jan, [facility] [address] [id number] [address] [place] [address], [place] [address] Dec, [facility] [address] [id number] [address] [place] [address], [place] [address] Dec, [facility] [address] [id number] [address] [place] [address], [place] [address] Dec, [facility] [address] [id number] [address] [place] [address], [place] [address] Nov, [facility] [address] [id number] [address] [place] [address], [place] [address] Nov, [facility] [address] [id number] [address] [place] [address], [place] [address] Nov, [facility] [address] [id number] [address] [place] [address], [place] [address] Oct, [facility] [address] [id number] [address] [place] [address], [place] [address] Oct, [facility] [address] [id number] [address] [place] [address], [place] [address] Oct, [facility] [address] [id number] [address] [place] [address], [place] [address] September, [facility] [address] [id number] [address] [place] [address], [place] [address] September, [facility] [address] [id number] [address] [place] [address], [place] [address] September, [facility] [address] [id number] [address] [place] [address], [place] [address] September, [facility] [address] [id number] [address] [place] [address], [place] [address] September, [facility] [address] [id number] [address] [place] [address], [place] [address] Aug, [facility] [address] [id number] [address] [place] [address], [place] [address] Aug, [facility] [address] [id number] [address] [place] [address], [place] [address] Aug, [facility] [address] [id number] [address] [place] [address], [place] [address] Jul, [facility] [address] [id number] [address] [place] [address], [place] [address] Jul, [facility] [address] [id number] [address] [place] [address], [place] [address] Jul, [facility] [address] [id number] [address] [place] [address], [place] [address] Jul, [facility] [address] [id number] [address] [place] [address], [place] [address] Jul, [facility] [address] [id number] [address] [place] [address], [place] [address] Jul, [facility] [address] [id number] [address] [place] [address], [place] [address] Jul, [facility] [address] [id number] [address] [place] [address], [place] [address] 14 May, 2012 [facility] [address] [id number] [address] [place] [address], [place] [address] May, [facility] [address] [id number] [address] [place] [address], [place] [address] May, [facility] [address] [id number] [address] [place] [address], [place] [address] Apr, [facility] [address] [id number] [address] [place] [address], [place] [address] Apr, [facility] [address] [id number] [address] [place] [address], [place] [address] Apr, [facility] [address] [id number] [address] [place] [address], [place] [address] 17 Apr, 2012 [facility] [address] [id number] [address] [place] [address], [place] [address] Apr, [facility] [address] [id number] [address] [place] [address], [place] [address] 29 Mar, 2012 [facility] [address] [id number] [address] [place] [address], [place] [id number] 29 Mar, 2012 [facility] [address] [id number] [address] [place] [address], [place] [address] 15 Mar, 2012 [facility] [address] [id number] [address] [place] [address], [place] [address] 15 Mar, 2012 [facility] [address] [id number] [address] [place] [address], [place] [address] Feb, [facility] [address] [id number] [address] [place] [address], [place] [address] Feb, [facility] [address] [id number] [address] [place] [address], [place] [address] Feb, [facility] [address] [id number] [address] [place] [address], [place] [address] Feb, [facility] [address] [id number] [address] [place] [address], [place] [address] Feb, [facility] [address] [id number] [address] [place] [address], [place] [address] Jan, [facility] [address] [id number] [address] [place] [address], [place] [address] Dec, [facility] [address] [id number] [address] [place] [address], [place] [address] Dec, [facility] [address] [id number] [address] [place] [address], [place] [address] Dec, [facility] [address] [id number] [address] [place] [address], [place] [address] Nov, [facility] [address] [id number] [address] [place] [address], [place] [address] Nov, [facility] [address] [id number] [address] [place] [address], [place] [address] Nov, [facility] [address] [id number] [address] [place] [address], [place] [address] Oct, [facility] [address] [id number] [address] [place] [address], [place] [address] Oct, [facility] [address] [id number] [address] [place] [address], [place] [address] Oct, [facility] [address] [id number] [address] [place] [address], [place] [address] Oct, [facility] [address] [id number] [address] [place] [address], [place] [address] September, [facility] [address] [id number] [address] [place] [address], [place] [address] September, [facility] [address] [id number] [address] [place] [address], [place] [address] Aug, [facility] [address] [id number] [address] [place] [address], [place] [address] Aug, [facility] [address] [id number] [address] [place] [address], [place] [address] Aug, [facility] [address] [id number] [address] [place] [address], [place] [address] Aug, [facility] [address] [id number] [address] [place] [address], [place] [address] Aug, [facility] [address] [id number] [address] [place] [address], [place] [address] Aug, [facility] [address] [id number] [address] [place] [address], [place] [address] Aug, [facility] [address] [id number] [address] [place] [address], [place] [address] Jul, [facility] [address] [id number] [address] [place] [address], [place] [address] Jul, [facility] [address] [id number] [address] [place] [address], [place] [address] Jul, [facility] [address] [id number] [address] [place] [address], [place] [address] May, [facility] [address] [id number] [address] [place] [address], [place] [address] May, [facility] [address] [id number] [address] [place] [address], [place] [address] May, [facility] [address] [id number] [address] [place] [id number] Apr, [facility] [address] [id number] [address] [place] [id number] Apr, [facility] [address] [id number] [address] [place] [id number] Mar, [facility] [address] [id number] [address] [place] [id number] Mar, [facility] [address] [id number] [address] [place] [id number] Mar, [facility] [address] [id number] [address] [place] [id number] Mar, [facility] [address] [id number] [address] [place] [id number] Mar, [facility] [address] [id number] [address] [place] [id number] Mar, [facility] [address] [id number] [address] [place] [id number] Feb, [facility] [address] [id number] [address] [place] [id number] Feb, [facility] [address] [id number] [address] [place] [id number] Feb, IMMUNIZATIONS No Known Immunizations SOCIAL HISTORY [...] infections x 3 2016 Hospitalization History [facility] - right big t oe removed 2019
--- OUTSIDE RECORDS SUMMARY | 2020-01-03 08:21 | XMS REPORT | Continuity of Care Document ---
Demographics Preferred Language Unknown Marital Status Unknown Pent[employer]al Affiliation Unknown Race Unknown Ethnic Group Unknown Author Organization Unknown Address Unknown Phone Unavailable Allergies Active Description Code Type Severity Reaction Onset Reported/Identified Relationship to Patient Clinical Status Yes NKANo Known Allergies NKA Miscellaneous Allergy Unknown N/A 12/21/2005 Yes No Known Drug Allergies [id number] Drug Allergy Mild N/A 10/19/2008 Yes No Known Drug Allergies [id number] Drug Allergy Unknown N/A 12/27/2019 Medications There is no data. 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 07/31/2010 272.4 HYPE RLIPIDEMIA 07/31/2010 356.9 NEUR OPATHY 07/31/2010 401.9 Hype rtension, Unspecified Essential 07/31/2010 724.2 BACK PAIN, LOWER 07/31/2010 ANGELICA CONLEY DO 250.00 DIABETES MELLITUS TYPE 2 07/31/2010 ANGELICA CONLEY DO 272.4 HYPERLIPIDEMIA 07/31/2010 ANGELICA CONLEY DO 356.9 NEUROPATHY 07/31/2010 ANGELICA CONLEY DO 401.9 Hypertension, Unspecified Essential 07/31/2010 ANGELICA CONLEY DO 724.2 BACK PAIN, LOWER 07/31/2010 FERNY SILVERIO MD 250.0 0 DIABETES MELLITUS TYPE 2 07/31/2010 FERNY SILVERIO MD 272.4 HYPERLIPIDEMIA 07/31/2010 FERNY SILVERIO MD 356.9 NEUROPATHY 07/31/2010 FERNY SILVERIO MD 401.9 Hypertension, Unspecified Essential 07/31/2010 FERNY SILVERIO MD 724.2 BACK PAIN, LOWER 07/31/2010 FERNY SILVERIO MD 250.0 0 DIABETES MELLITUS TYPE 2 07/31/2010 FERNY SILVERIO MD 272.4 HYPERLIPIDEMIA 07/31/2010 FERNY SILVERIO MD 356.9 NEUROPATHY 07/31/2010 FERNY SILVERIO MD 401.9 Hypertension, Unspecified Essential 07/31/2010 FERNY SILVERIO MD 724.2 BACK PAIN, LOWER 07/31/2010 250.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 07/31/2010 272.4 HYPE RLIPIDEMIA 07/31/2010 356.9 NEUR OPATHY 07/31/2010 401.9 Hype rtension, Unspecified Essential 07/31/2010 724.2 BACK PAIN, LOWER 07/31/2010 250.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 07/31/2010 272.4 HYPE RLIPIDEMIA 07/31/2010 356.9 NEUR OPATHY 07/31/2010 401.9 Hype rtension, Unspecified Essential 07/31/2010 724.2 BACK PAIN, LOWER 07/31/2010 250.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 07/31/2010 272.4 HYPE RLIPIDEMIA 07/31/2010 356.9 NEUR OPATHY 07/31/2010 401.9 Hype rtension, Unspecified Essential 07/31/2010 724.2 BACK PAIN, LOWER 07/31/2010 250.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 07/31/2010 272.4 HYPE RLIPIDEMIA 07/31/2010 356.9 NEUR OPATHY 07/31/2010 401.9 Hype rtension, Unspecified Essential 07/31/2010 724.2 BACK PAIN, LOWER 07/31/2010 CONLEY DO, ANGELICA K 250.00 DIABETES MELLITUS TYPE 2 07/31/2010 CONLEY DO, ANGELICA K 272.4 HYPERLIPIDEMIA 07/31/2010 CONLEY DO, ANGELICA K 356.9 NEUROPATHY 07/31/2010 CONLEY DO, ANGELICA K 401.9 Hypertension, Unspecified Essential 07/31/2010 CONLEY DO, ANGELICA K 724.2 BACK PAIN, LOWER 07/31/2010 FERNY SILVERIO MD 250.0 0 DIABETES MELLITUS TYPE 2 07/31/2010 FERNY SILVERIO MD 272.4 HYPERLIPIDEMIA 07/31/2010 FERNY SILVERIO MD 356.9 NEUROPATHY 07/31/2010 FERNY SILVERIO MD 401.9 Hypertension, Unspecified Essential 07/31/2010 FERNY SILVERIO MD 724.2 BACK PAIN, LOWER 07/31/2010 CONLEY DO, ANGELICA K 250.00 DIABETES MELLITUS TYPE 2 07/31/2010 CONLEY DO, ANGELICA K 272.4 HYPERLIPIDEMIA 07/31/2010 CONLEY DO, ANGELICA K 356.9 NEUROPATHY 07/31/2010 OCNLEY DO, ANGELICA K 401.9 Hypertension, Unspecified Essential 07/31/2010 CONLEY DO, ANGELICA K 724.2 BACK PAIN, LOWER 07/31/2010 CONLEY DO, ANGELICA K 250.00 DIABETES MELLITUS TYPE 2 07/31/2010 CONLEY DO, ANGELICA K 272.4 HYPERLIPIDEMIA 07/31/2010 CONLEY DO, ANGELICA K 356.9 NEUROPATHY 07/31/2010 CONLEY DO, ANGELICA K 401.9 Hypertension, Unspecified Essential 07/31/2010 CONLEY DO, ANGELICA K 724.2 BACK PAIN, LOWER 07/31/2010 JEAN CLAUDE SCHWARTZ, FERNY 250.0 0 DIABETES MELLITUS TYPE 2 07/31/2010 JEAN CLAUDE SCHWARTZ, FERNY 272.4 HYPERLIPIDEMIA 07/31/2010 JEAN CLAUDE SCHWARTZ, FERNY 356.9 NEUROPATHY 07/31/2010 JEAN CLAUDE SCHWARTZ, FERNY 401.9 Hypertension, Unspecified Essential 07/31/2010 JEAN CLAUDE SCHWARTZ, FERNY 724.2 BACK PAIN, LOWER 07/31/2010 JEAN CLAUDE SCHWARTZ, FERNY 250.0 0 DIABETES MELLITUS TYPE 2 07/31/2010 JEAN CLAUDE SCHWARTZ, FERNY 272.4 HYPERLIPIDEMIA 07/31/2010 JEAN CLAUDE SCHWARTZ, FERNY 356.9 NEUROPATHY 07/31/2010 JEAN CLAUDE SCHWARTZ, FERNY 401.9 Hypertension, Unspecified Essential 07/31/2010 JEAN CLAUDE SCHWARTZ, FERNY 724.2 BACK PAIN, LOWER 07/31/2010 JEAN CLAUDE SCHWARTZ, FERNY 250.0 0 DIABETES MELLITUS TYPE 2 07/31/2010 JEAN CLAUDE SCHWARTZ, FERNY 272.4 HYPERLIPIDEMIA 07/31/2010 JEAN CLAUDE SCHWARTZ, FERNY 356.9 NEUROPATHY 07/31/2010 JEAN CLAUDE SCHWARTZ, FERNY 401.9 Hypertension, Unspecified Essential 07/31/2010 JEAN CLAUDE SCHWARTZ, FERNY 724.2 BACK PAIN, LOWER 07/31/2010 JEAN CLAUDE SCHWARTZ, FERNY 250.0 0 DIABETES MELLITUS TYPE 2 07/31/2010 FERNY SILVERIO MD 272.4 HYPERLIPIDEMIA 07/31/2010 JEAN CLAUDE SCHWARTZ, FERNY 356.9 NEUROPATHY 07/31/2010 JEAN CLAUDE SCHWARTZ, FERNY 401.9 Hypertension, Unspecified Essential 07/31/2010 JEAN CLAUDE SCHWARTZ, FERNY 724.2 BACK PAIN, LOWER 07/31/2010 JEAN CLAUDE SCHWARTZ, FERNY 250.0 0 DIABETES MELLITUS TYPE 2 07/31/2010 JEAN CLAUDE SCHWARTZ, FERNY 272.4 HYPERLIPIDEMIA 07/31/2010 JEAN CLAUDE SCHWARTZ, FERNY 356.9 NEUROPATHY 07/31/2010 JEAN CLAUDE SCHWARTZ, FERNY 401.9 Hypertension, Unspecified Essential 07/31/2010 FERNY SILVERIO MD 724.2 BACK PAIN, LOWER 07/31/2010 FERNY SILVERIO MD 250.0 0 DIABETES MELLITUS TYPE 2 07/31/2010 FERNY SILVERIO [...] K 724.2 BACK PAIN, LOWER 07/31/2010 250.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 07/31/2010 272.4 HYPE RLIPIDEMIA 07/31/2010 356.9 NEUR OPATHY 07/31/2010 401.9 Hype rtension, Unspecified Essential 07/31/2010 724.2 BACK PAIN, LOWER 07/31/2010 FERNY SILVERIO MD 250.0 0 DIABETES MELLITUS TYPE 2 07/31/2010 FERNY SILVERIO MD 272.4 HYPERLIPIDEMIA 07/31/2010 FERNY SILVERIO MD 356.9 NEUROPATHY 07/31/2010 FERNY SILVERIO MD 401.9 Hypertension, Unspecified Essential 07/31/2010 FERNY SILVERIO MD 724.2 BACK PAIN, LOWER 07/31/2010 FERNY SILVERIO MD 250.0 0 DIABETES MELLITUS TYPE 2 07/31/2010 FERNY SILVERIO MD 272.4 HYPERLIPIDEMIA 07/31/2010 FERNY SILVERIO MD 356.9 NEUROPATHY 07/31/2010 FERNY SILVERIO MD 401.9 Hypertension, Unspecified Essential 07/31/2010 FERNY SILVERIO MD 724.2 BACK PAIN, LOWER 07/31/2010 MADL TAX ECONOMIST, YUDITH L 250 .00 DIABETES MELLITUS TYPE 2 07/31/2010 MADL TAX ECONOMIST, YUDITH L 272 .4 HYPERLIPIDEMIA 07/31/2010 MADL TAX ECONOMIST, YUDITH L 356 .9 NEUROPATHY 07/31/2010 MADL TAX ECONOMIST, YUDITH L 401 .9 Hypertension, Unspecified Essential 07/31/2010 MADL TAX ECONOMIST, YUDITH L 724 .2 BACK PAIN, LOWER 07/31/2010 FERNY SILVERIO MD 250.0 0 DIABETES MELLITUS TYPE 2 07/31/2010 FERNY SILVERIO MD 272.4 HYPERLIPIDEMIA 07/31/2010 FERNY SILVERIO MD 356.9 NEUROPATHY 07/31/2010 FERNY SILVERIO MD 401.9 Hypertension, Unspecified Essential 07/31/2010 FERNY SILVERIO MD 724.2 BACK PAIN, LOWER 08/28/2010 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 08/28/2010 LATA CONLEY DOA K 607.84 IMPOTENCE OF ORGANIC ORIGIN 08/28/2010 FERNY SILVERIO MD 607.8 4 IMPOTENCE OF ORGANIC ORIGIN 08/28/2010 FERNY SILVERIO MD 607.8 4 IMPOTENCE OF ORGANIC ORIGIN 08/28/2010 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 08/28/2010 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 08/28/2010 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 08/28/2010 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 08/28/2010 ANGELICA CONLEY DO K 607.84 IMPOTENCE OF ORGANIC ORIGIN 08/28/2010 FERNY SILVERIO MD 607.8 4 IMPOTENCE OF ORGANIC ORIGIN 08/28/2010 ANGELICA CONLEY DO K 607.84 IMPOTENCE OF ORGANIC ORIGIN 08/28/2010 ANGELICA CONLEY DO K 607.84 IMPOTENCE OF ORGANIC ORIGIN 08/28/2010 FERNY SILVERIO MD 607.8 4 IMPOTENCE OF ORGANIC ORIGIN 08/28/2010 FERNY SILVERIO MD 607.8 4 IMPOTENCE OF ORGANIC ORIGIN 08/28/2010 FERNY SILVERIO MD 607.8 4 IMPOTENCE OF ORGANIC ORIGIN 08/28/2010 FERNY SILVERIO MD 607.8 4 IMPOTENCE OF ORGANIC ORIGIN 08/28/2010 FERNY SILVERIO MD 607.8 4 IMPOTENCE OF ORGANIC ORIGIN 08/28/2010 FERNY SILVERIO MD 607.8 4 IMPOTENCE OF ORGANIC ORIGIN 08/28/2010 CONLEY , ANGELICA K 607.84 IMPOTENCE OF ORGANIC ORIGIN 08/28/2010 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 08/28/2010 FERNY SILVERIO MD 607.8 4 IMPOTENCE OF ORGANIC ORIGIN 08/28/2010 FERNY SILVERIO MD 607.8 4 IMPOTENCE OF ORGANIC ORIGIN 08/28/2010 KOLE LOTT YUDITH L 607 .84 IMPOTENCE OF ORGANIC ORIGIN 08/28/2010 FERNY SILVERIO MD 607.8 4 IMPOTENCE OF ORGANIC ORIGIN 08/29/2010 401.1 ESSE NTIAL HYPERTENSION BENIGN 08/29/2010 YAEL REYEZ ANGELICA K 401.1 ESSENTIAL HYPERTENSION BENIGN 08/29/2010 FERNY SILVERIO MD 401.1 ESSENTIAL HYPERTENSION BENIGN 08/29/2010 FERNY SILVERIO MD 401.1 ESSENTIAL HYPERTENSION BENIGN 08/29/2010 401.1 ESSE NTIAL HYPERTENSION BENIGN 08/29/2010 401.1 ESSE NTIAL HYPERTENSION BENIGN 08/29/2010 401.1 ESSE NTIAL HYPERTENSION BENIGN 08/29/2010 401.1 ESSE NTIAL HYPERTENSION BENIGN 08/29/2010 YAEL REYEZ ANGELICA K 401.1 ESSENTIAL HYPERTENSION BENIGN 08/29/2010 FERNY SILVERIO MD 401.1 ESSENTIAL HYPERTENSION BENIGN 08/29/2010 LATA CONLEY DOA K 401.1 ESSENTIAL HYPERTENSION BENIGN 08/29/2010 YAEL REYEZ ANGELICA K 401.1 ESSENTIAL HYPERTENSION BENIGN 08/29/2010 FERNY SILVERIO MD 401.1 ESSENTIAL HYPERTENSION BENIGN 08/29/2010 FERNY SILVERIO MD 401.1 ESSENTIAL HYPERTENSION BENIGN 08/29/2010 FERNY SILVERIO MD 401.1 ESSENTIAL HYPERTENSION BENIGN 08/29/2010 FERNY SILVERIO MD 401.1 ESSENTIAL HYPERTENSION BENIGN 08/29/2010 FERNY SILVERIO MD 401.1 ESSENTIAL HYPERTENSION BENIGN 08/29/2010 FERNY SILVERIO MD 401.1 ESSENTIAL HYPERTENSION BENIGN 08/29/2010 ANGELICA CONLEY DO K 401.1 ESSENTIAL HYPERTENSION BENIGN 08/29/2010 401.1 ESSE NTIAL HYPERTENSION BENIGN 08/29/2010 FERNY SILVERIO MD 401.1 ESSENTIAL HYPERTENSION BENIGN 08/29/2010 FERNY SILVERIO MD 401.1 ESSENTIAL HYPERTENSION BENIGN 08/29/2010 YUDITH SHARIF APRN 401 .1 ESSENTIAL HYPERTENSION BENIGN 08/29/2010 FERNY SILVERIO MD 401.1 ESSENTIAL HYPERTENSION BENIGN 10/23/2010 706.3 Sebo rrhea 10/23/2010 ANGELICA CONLEY DO 706.3 Seborrhea 10/23/2010 FERNY SILVERIO MD 706.3 Seborrhea 10/23/2010 FERNY SILVERIO MD 706.3 Seborrhea 10/23/2010 706.3 Sebo rrhea 10/23/2010 706.3 Sebo rrhea 10/23/2010 706.3 Sebo rrhea 10/23/2010 706.3 Sebo rrhea 10/23/2010 ANGELICA CONLEY DO 706.3 Seborrhea 10/23/2010 FERNY SILVERIO MD 706.3 Seborrhea 10/23/2010 ANGELICA CONLEY DO 706.3 Seborrhea 10/23/2010 ANGELICA CONLEY DO 706.3 Seborrhea 10/23/2010 FERNY SILVERIO MD 706.3 Seborrhea 10/23/2010 FERNY SILVERIO MD 706.3 Seborrhea 10/23/2010 JEAN CLAUDE SCHWARTZ, FERNY 706.3 Seborrhea 10/23/2010 JEAN CLAUDE SCHWARTZ, FERNY 706.3 Seborrhea 10/23/2010 FERNY SILVERIO MD 706.3 Seborrhea 10/23/2010 FERNY SILVERIO MD 706.3 Seborrhea 10/23/2010 ANGELICA CONLEY DO 706.3 Seborrhea 10/23/2010 706.3 Sebo rrhea 10/23/2010 FERNY SILVERIO MD 706.3 Seborrhea 10/23/2010 FERNY SILVERIO MD 706.3 Seborrhea 10/23/2010 YUDITH SHARIF APRN 706 .3 Seborrhea 10/23/2010 FERNY SILVERIO MD 706.3 Seborrhea 12/23/2010 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 12/23/2010 686.9 Unsp ecified Local Infection Of Skin And Subcutaneous Tissue 12/23/2010 ANGELICA CONLEY DO 311 DEPRESSIVE DISORDER NOT ELSEWHERE CLASSIFIED 12/23/2010 ANGELICA CONLEY DO 686.9 Unspecified Local Infection Of Skin And Subcutaneous Tissue 12/23/2010 FERNY SILVERIO MD DEPRESSIVE DISORDER NOT ELSEWHERE CLASSIFIED 12/23/2010 FERNY SILVERIO MD6.Ian Unspecified Local Infection Of Skin And Subcutaneous Tissue 12/23/2010 FERNY SILVERIO MD DEPRESSIVE DISORDER NOT ELSEWHERE CLASSIFIED 12/23/2010 FERNY SILVERIO MD.Ian Unspecified Local Infection Of Skin And Subcutaneous Tissue 12/23/2010 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 12/23/2010 686.9 Unsp ecified Local Infection Of Skin And Subcutaneous Tissue 12/23/2010 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 12/23/2010 686.9 Unsp ecified Local Infection Of Skin And Subcutaneous Tissue 12/23/2010 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 12/23/2010 686.9 Unsp ecified Local Infection Of Skin And Subcutaneous Tissue 12/23/2010 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 12/23/2010 686.9 Unsp ecified Local Infection Of Skin And Subcutaneous Tissue 12/23/2010 ANGELICA CONLEY DO 311 DEPRESSIVE DISORDER NOT ELSEWHERE CLASSIFIED 12/23/2010 ANGELICA CONLEY DO 686.9 Unspecified Local Infection Of Skin And Subcutaneous Tissue 12/23/2010 FERNY SILVERIO MD DEPRESSIVE DISORDER NOT ELSEWHERE CLASSIFIED 12/23/2010 FERNY SILVERIO MD6.9 Unspecified Local Infection Of Skin And Subcutaneous Tissue 12/23/2010 LATA CONLEY DOA K 311 DEPRESSIVE DISORDER NOT ELSEWHERE CLASSIFIED 12/23/2010 ANGELICA CONLEY DO K 686.9 Unspecified Local Infection Of Skin And Subcutaneous Tissue 12/23/2010 LATA CONLEY DOA K 311 DEPRESSIVE DISORDER NOT ELSEWHERE CLASSIFIED [...] Infection Of Skin And Subcutaneous Tissue 12/23/2010 EFRNY SILVERIO MD DEPRESSIVE DISORDER NOT ELSEWHERE CLASSIFIED 12/23/2010 FERNY SILVERIO MD 686.9 Unspecified Local Infection Of Skin And Subcutaneous Tissue 12/23/2010 ANGELICA CONLEY DO 311 DEPRESSIVE DISORDER NOT ELSEWHERE CLASSIFIED 12/23/2010 CONLEY DOANGELICA 686.9 Unspecified Local Infection Of Skin And Subcutaneous Tissue 12/23/2010 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 12/23/2010 686.9 Unsp ecified Local Infection Of Skin And Subcutaneous Tissue 12/23/2010 FERNY SILVERIO MD DEPRESSIVE DISORDER NOT ELSEWHERE CLASSIFIED 12/23/2010 FERNY SILVERIO MD 686.9 Unspecified Local Infection Of Skin And Subcutaneous Tissue 12/23/2010 FERNY SILVERIO MD DEPRESSIVE DISORDER NOT ELSEWHERE CLASSIFIED 12/23/2010 FERNY SILVERIO MD 686.9 Unspecified Local Infection Of Skin And Subcutaneous Tissue 12/23/2010 YUDITH SHARIF APRN 311 DEPRESSIVE DISORDER NOT ELSEWHERE CLASSIFIED 12/23/2010 YUDITH SHARIF APRN 686 .9 Unspecified Local Infection Of Skin And Subcutaneous Tissue 12/23/2010 FERNY SILVERIO MD DEPRESSIVE DISORDER NOT ELSEWHERE CLASSIFIED 12/23/2010 FERNY SILVERIO MD 686.9 Unspecified Local Infection Of Skin And Subcutaneous Tissue 03/13/2011 V04.81 Flu Dx (3 Yrs And Above, Im) 03/13/2011 ANGELICA CONLEY DO V04.81 Flu Dx (3 Yrs And Above, Im) 03/13/2011 FERNY SILVERIO MD V04.8 1 Flu Dx (3 Yrs And Above, Im) 03/13/2011 FERNY SILVERIO MD V04.8 1 Flu Dx (3 Yrs And Above, Im) 03/13/2011 V04.81 Flu Dx (3 Yrs And Above, Im) 03/13/2011 V04.81 Flu Dx (3 Yrs And Above, Im) 03/13/2011 V04.81 Flu Dx (3 Yrs And Above, Im) 03/13/2011 V04.81 Flu Dx (3 Yrs And Above, Im) 03/13/2011 ANGELICA CONLEY DO V04.81 Flu Dx (3 Yrs And Above, Im) 03/13/2011 FERNY SILVERIO MD4.8 1 Flu Dx (3 Yrs And Above, Im) 03/13/2011 ANGELICA CONLEY DO V04.81 Flu Dx (3 Yrs And Above, Im) 03/13/2011 ANGELICA CONLEY DO V04.81 Flu Dx (3 Yrs And Above, Im) 03/13/2011 FERNY SILVERIO MD4.8 1 Flu Dx (3 Yrs And Above, Im) 03/13/2011 FERNY SILVERIO MD4.8 1 Flu Dx (3 Yrs And Above, Im) 03/13/2011 FERNY SILVERIO MD4.8 1 Flu Dx (3 Yrs And Above, Im) 03/13/2011 FERNY SILVERIO MD4.8 1 Flu Dx (3 Yrs And Above, Im) 03/13/2011 FERNY SILVERIO MD4.8 1 Flu Dx (3 Yrs And Above, Im) 03/13/2011 FERNY SILVERIO MD4.8 1 Flu Dx (3 Yrs And Above, Im) 03/13/2011 ANGELICA CONLEY DO V04.81 Flu Dx (3 Yrs And Above, Im) 03/13/2011 V04.81 Flu Dx (3 Yrs And Above, Im) 03/13/2011 FERNY SILVERIO MD V04.8 1 Flu Dx (3 Yrs And Above, Im) 03/13/2011 FERNY SILVERIO MD4.8 1 Flu Dx (3 Yrs And Above, Im) 03/13/2011 KOLE TAVAREZN, YUDITH Bravo V04 .81 Flu Dx (3 Yrs And Above, Im) 03/13/2011 FERNY SILVERIO MD V04.8 1 Flu Dx (3 Yrs And Above, Im) 04/17/2011 250.80 ANNMARIE BETES MELLITUS WITH FOOT ULCER 04/17/2011 V72.83 Pre -admission Examination 04/17/2011 ANGELICA CONLEY DO 250.80 DIABETES MELLITUS WITH FOOT ULCER 04/17/2011 YAEL REYEZ ANGELICA K V72.83 Pre-admission Examination 04/17/2011 FERNY SILVERIO MD 250.8 0 DIABETES MELLITUS WITH FOOT ULCER 04/17/2011 FERNY SILVERIO MD V72.8 3 Pre-admission Examination 04/17/2011 FERNY SILVERIO MD 250.8 0 DIABETES MELLITUS WITH FOOT ULCER 04/17/2011 FERNY SILVERIO MD V72.8 3 Pre-admission Examination 04/17/2011 250.80 ANNMARIE BETES MELLITUS WITH FOOT ULCER 04/17/2011 V72.83 Pre -admission Examination 04/17/2011 250.80 ANNMARIE BETES MELLITUS WITH FOOT ULCER 04/17/2011 V72.83 Pre -admission Examination 04/17/2011 250.80 ANNMARIE BETES MELLITUS WITH FOOT ULCER 04/17/2011 V72.83 Pre -admission Examination 04/17/2011 250.80 ANNMARIE BETES MELLITUS WITH FOOT ULCER 04/17/2011 V72.83 Pre -admission Examination 04/17/2011 ANGELICA CONLEY DO K 250.80 DIABETES MELLITUS WITH FOOT ULCER 04/17/2011 LATA CONLEY DOA K V72.83 Pre-admission Examination 04/17/2011 FERNY SILVERIO MD 250.8 0 DIABETES MELLITUS WITH FOOT ULCER 04/17/2011 FERNY SILVERIO MD V72.8 3 Pre-admission Examination 04/17/2011 ANGELICA CONLEY DO K 250.80 DIABETES MELLITUS WITH FOOT ULCER 04/17/2011 LATA CONLEY DOA K V72.83 Pre-admission Examination 04/17/2011 ANGELICA CONLEY DO K 250.80 DIABETES MELLITUS WITH FOOT ULCER 04/17/2011 LATA CONLEY DOA K V72.83 Pre-admission Examination 04/17/2011 FERNY SILVERIO MD 250.8 0 DIABETES MELLITUS WITH FOOT ULCER 04/17/2011 FERNY SILVERIO MD V72.8 3 Pre-admission Examination 04/17/2011 FERNY SILVERIO MD 250.8 0 DIABETES MELLITUS WITH FOOT ULCER 04/17/2011 FERNY SILVERIO MD V72.8 3 Pre-admission Examination 04/17/2011 FERNY SILVERIO MD 250.8 0 DIABETES MELLITUS WITH FOOT ULCER 04/17/2011 FERNY SILVERIO MD V72.8 3 Pre-admission Examination 04/17/2011 FERNY SILVERIO MD 250.8 0 DIABETES MELLITUS WITH FOOT ULCER 04/17/2011 FERNY SILVERIO MD V72.8 3 Pre-admission Examination 04/17/2011 FERNY SILVERIO MD 250.8 0 DIABETES MELLITUS WITH FOOT ULCER 04/17/2011 FERNY SILVERIO MD V72.8 3 Pre-admission Examination 04/17/2011 FERNY SILVERIO MD 250.8 0 DIABETES MELLITUS WITH FOOT ULCER 04/17/2011 FERNY SILVERIO MD V72.8 3 Pre-admission Examination 04/17/2011 ANGELICA CONLEY DO K 250.80 DIABETES MELLITUS WITH FOOT ULCER 04/17/2011 CONLEY ANGELICA REYEZ K V72.83 Pre-admission Examination 04/17/2011 250.80 ANNMARIE BETES MELLITUS WITH FOOT ULCER 04/17/2011 V72.83 Pre -admission Examination 04/17/2011 FERNY SILVERIO MD 250.8 0 DIABETES MELLITUS WITH FOOT ULCER 04/17/2011 FERNY SILVERIO MD V72.8 3 Pre-admission Examination 04/17/2011 FERNY SILVERIO MD 250.8 0 DIABETES MELLITUS WITH FOOT ULCER 04/17/2011 FERNY SILVERIO MD V72.8 3 Pre-admission Examination 04/17/2011 YUDITH SHARIF APRN L 250 .80 DIABETES MELLITUS WITH FOOT ULCER 04/17/2011 YUDITH SHARIF APRN L V72 .83 Pre-admission Examination 04/17/2011 FERNY SILVERIO MD 250.8 0 DIABETES MELLITUS WITH FOOT ULCER 04/17/2011 FERNY SILVERIO MD V72.8 3 Pre-admission Examination 05/08/2011 558.9 Othe r And Unspecified Noninfectious Gastroenteritis And Colitis 05/08/2011 ANGELICA CONLEY DO 558.9 Other And Unspecified Noninfectious Gastroenteritis And Colitis 05/08/2011 FERNY SILVERIO MD 558.9 Other And Unspecified Noninfectious Gastroenteritis And Colitis 05/08/2011 FERNY SILVERIO MD 558.9 Other And Unspecified Noninfectious Gastroenteritis And Colitis 05/08/2011 558.9 Othe r And Unspecified Noninfectious Gastroenteritis And Colitis 05/08/2011 558.9 Othe r And Unspecified Noninfectious Gastroenteritis And Colitis 05/08/2011 558.9 Othe r And Unspecified Noninfectious Gastroenteritis And Colitis 05/08/2011 558.9 Othe r And Unspecified Noninfectious Gastroenteritis And Colitis 05/08/2011 [...] Unspecified Noninfectious Gastroenteritis And Colitis 05/08/2011 558.9 Othe r And Unspecified Noninfectious Gastroenteritis And Colitis 05/08/2011 FERNY SILVERIO MD 558.9 Other And Unspecified Noninfectious Gastroenteritis And Colitis 05/08/2011 FERNY SILVERIO MD 558.9 Other And Unspecified Noninfectious Gastroenteritis And Colitis 05/08/2011 YUDITH SHARIF APRN 558 .9 Other And Unspecified Noninfectious Gastroenteritis And Colitis 05/08/2011 FERNY SILVERIO MD8.9 Other And Unspecified Noninfectious Gastroenteritis And Colitis 06/22/2011 716.90 ART HRITIS 06/22/2011 ANGELICA CONLEY DO 716.90 ARTHRITIS 06/22/2011 FERNY SILVERIO MD 716.9 0 ARTHRITIS 06/22/2011 FERNY SILVERIO MD6.9 0 ARTHRITIS 06/22/2011 716.90 ART HRITIS 06/22/2011 716.90 ART HRITIS 06/22/2011 716.90 ART HRITIS 06/22/2011 716.90 ART HRITIS 06/22/2011 ANGELICA CONLEY DO 716.90 ARTHRITIS 06/22/2011 FERNY SILVERIO MD 716.9 0 ARTHRITIS 06/22/2011 ANGELICA CONLEY DO 716.90 ARTHRITIS 06/22/2011 ANGELICA CONLEY DO 716.90 ARTHRITIS 06/22/2011 FERNY SILVERIO MD 716.9 0 ARTHRITIS 06/22/2011 FERNY SILVERIO MD 716.9 0 ARTHRITIS 06/22/2011 FERNY SILVERIO MD 71Omer.9 0 ARTHRITIS 06/22/2011 FERNY SILVERIO MD 716.9 0 ARTHRITIS 06/22/2011 FERNY SILVERIO MD 716.9 0 ARTHRITIS 06/22/2011 FERNY SILVERIO MD 716.9 0 ARTHRITIS 06/22/2011 ANGELICA CONLEY DO 716.90 ARTHRITIS 06/22/2011 716.90 ART HRITIS 06/22/2011 FERNY SILVERIO MD 716.9 0 ARTHRITIS 06/22/2011 FERNY SILVERIO MD 716.9 0 ARTHRITIS 06/22/2011 MADL TAX ECONOMIST, YUDITH Shelly 716 .90 ARTHRITIS 06/22/2011 FERNY SILVERIO MD 716.9 0 ARTHRITIS 09/03/2011 584.9 Acut e Renal Failure 09/03/2011 ANGELICA CONLEY DO 584.9 Acute Renal Failure 09/03/2011 FERNY SILVERIO MD 584.9 Acute Renal Failure 09/03/2011 FERNY SILVERIO MD 584.9 Acute Renal Failure 09/03/2011 584.9 Acut e Renal Failure 09/03/2011 584.9 Acut e Renal Failure 09/03/2011 584.9 Acut e Renal Failure 09/03/2011 584.9 Acut e Renal Failure 09/03/2011 ANGELICA CONLEY DO 584.9 Acute Renal Failure 09/03/2011 FERNY SILVERIO MD 584.9 Acute Renal Failure 09/03/2011 ANGELICA CONLEY DO 584.9 Acute Renal Failure 09/03/2011 ANGELICA CONLEY DO 584.9 Acute Renal Failure 09/03/2011 HUERTER MD, FERNY 584.9 Acute Renal Failure 09/03/2011 JEAN CLAUDE SCHWARTZ, FERNY 584.9 Acute Renal Failure 09/03/2011 FERNY SILVERIO MD 584.9 Acute Renal Failure 09/03/2011 FERNY SILVERIO MD 584.9 Acute Renal Failure 09/03/2011 FERNY SILVERIO MD 584.9 Acute Renal Failure 09/03/2011 FERNY SILVERIO MD 584.9 Acute Renal Failure 09/03/2011 ANGELICA CONLEY DO 584.9 Acute Renal Failure 09/03/2011 584.9 Acut e Renal Failure 09/03/2011 FERNY SILVERIO MD 584.9 Acute Renal Failure 09/03/2011 FERNY SILVERIO MD4.9 Acute Renal Failure 09/03/2011 YUDITH SHARIF APRN 584 .9 Acute Renal Failure 09/03/2011 FERNY SILVERIO MD 584.9 Acute Renal Failure 09/21/2011 719.47 ROSARIO T PAIN 09/21/2011 ANGELICA CONLEY DO 719.47 FOOT PAIN 09/21/2011 FERNY SILVERIO MD 719.4 7 Foot Pain 09/21/2011 FERNY SILVERIO MD 719.4 7 Foot Pain 09/21/2011 719.47 Rosario t Pain 09/21/2011 719.47 Rosario t Pain 09/21/2011 719.47 Rosario t Pain 09/21/2011 719.47 Rosario t Pain 09/21/2011 ANGELICA CONLEY DO 719.47 Foot Pain 09/21/2011 FERNY SILVERIO MD 719.4 7 Foot Pain 09/21/2011 ANGELICA CONLEY DO 719.47 Foot Pain 09/21/2011 ANGELICA CONLEY DO 719.47 Foot Pain 09/21/2011 FERNY SILVERIO MD 719.4 7 Foot Pain 09/21/2011 FERNY SILVERIO MD.4 7 Foot Pain 09/21/2011 FERNY SILVERIO MD.4 7 Foot Pain 09/21/2011 FERNY SILVERIO MD.4 7 Foot Pain 09/21/2011 FERNY SILVERIO MD9.4 7 Foot Pain 09/21/2011 FERNY SILVERIO MD.4 7 Foot Pain 09/21/2011 ANGELICA CONLEY DO 719.47 Foot Pain 09/21/2011 719.47 ROSARIO T PAIN 09/21/2011 FERNY SILVERIO MD 719.4 7 Foot Pain 09/21/2011 FERNY SILVERIO MD 719.4 7 Foot Pain 09/21/2011 YUDITH SHARIF APRN 719 .47 Foot Pain 09/21/2011 FERNY SILVERIO MD 719.4 7 Foot Pain 09/28/2011 733.19 PAT HOLOGICAL FRACTURE OF OTHER SPECIFIED SITE 09/28/2011 ANGELICA CONLEY DO 733.19 PATHOLOGICAL FRACTURE OF OTHER SPECIFIED SITE 09/28/2011 FERNY SILVERIO MD 733.1 9 Pathological Fracture Of Other Specified Site 09/28/2011 FERNY SILVERIO MD 733.1 9 Pathological Fracture Of Other Specified Site 09/28/2011 733.19 Pat hological Fracture Of Other Specified Site 09/28/2011 733.19 Pat hological Fracture Of Other Specified Site 09/28/2011 733.19 Pat hological Fracture Of Other Specified Site 09/28/2011 733.19 Pat hological Fracture Of Other Specified Site 09/28/2011 ANGELICA CONLEY DO 733.19 Pathological Fracture Of Other Specified Site 09/28/2011 FERNY SILVERIO MD 733.1 9 Pathological Fracture Of Other Specified Site 09/28/2011 ANGELICA CONLEY DO 733.19 Pathological Fracture Of Other Specified Site 09/28/2011 ANGELICA CONLEY DO 733.19 Pathological Fracture Of Other Specified Site 09/28/2011 FERNY SILVERIO MD 733.1 9 Pathological Fracture Of Other Specified Site 09/28/2011 FERNY SILVERIO MD 733.1 9 Pathological Fracture Of Other Specified Site 09/28/2011 FERNY SILVERIO MD 733.1 9 Pathological Fracture Of Other Specified Site 09/28/2011 FERNY SILVERIO MD 733.1 9 Pathological Fracture Of Other Specified Site 09/28/2011 FERNY SILVERIO MD 733.1 9 Pathological Fracture Of Other Specified Site 09/28/2011 FERNY SILVERIO MD 733.1 9 Pathological Fracture Of Other Specified Site 09/28/2011 ANGELICA CONLEY DO 733.19 Pathological Fracture Of Other Specified Site 09/28/2011 733.19 PAT HOLOGICAL FRACTURE OF OTHER SPECIFIED SITE 09/28/2011 FERNY SILVERIO MD 733.1 9 Pathological Fracture Of Other Specified Site 09/28/2011 FERNY SILVERIO MD 733.1 9 Pathological Fracture Of Other Specified Site 09/28/2011 YUDITH SHARIF APRN 733 .19 Pathological Fracture Of Other Specified Site 09/28/2011 FERNY SILVERIO MD 733.1 9 Pathological Fracture Of Other Specified Site 11/27/2011 465.9 Uppe r Respiratory Infection 11/27/2011 ANGELICA CONLEY DO K 465.9 Upper Respiratory Infection 11/27/2011 FERNY SILVERIO MD 465.9 Upper Respiratory Infection 11/27/2011 FERNY SILVERIO MD 465.9 Upper Respiratory Infection 11/27/2011 465.9 Uppe r Respiratory Infection 11/27/2011 465.9 Uppe r Respiratory Infection 11/27/2011 465.9 Uppe r Respiratory Infection 11/27/2011 465.9 Uppe r Respiratory Infection 11/27/2011 ANGELICA CONLEY DO K 465.9 Upper Respiratory Infection 11/27/2011 FERNY SILVERIO MD 465.9 Upper Respiratory Infection 11/27/2011 ANGELICA CONLEY DO K 465.9 Upper Respiratory Infection 11/27/2011 ANGELICA CONLEY DO K 465.9 Upper Respiratory Infection 11/27/2011 FERNY SILVERIO MD 465.9 Upper Respiratory Infection 11/27/2011 FERNY SILVERIO MD 465.9 Upper Respiratory Infection 11/27/2011 FERNY SILVERIO MD 465.9 Upper Respiratory Infection 11/27/2011 FERNY SILVERIO MD 465.9 Upper Respiratory Infection 11/27/2011 FERNY SILVERIO MD 465.9 Upper Respiratory Infection 11/27/2011 FERNY SILVERIO MD 465.9 Upper Respiratory Infection 11/27/2011 ANGELICA CONLEY DO 465.9 Upper Respiratory Infection 11/27/2011 465.9 Uppe r Respiratory Infection 11/27/2011 FERNY SILVERIO MD 465.9 Upper Respiratory Infection 11/27/2011 FERNY SILVERIO MD 465.9 Upper Respiratory Infection 11/27/2011 YUDITH SHARIF APRN 465 .9 Upper Respiratory Infection 11/27/2011 FERNY SILVERIO MD 465.9 Upper Respiratory Infection 03/22/2012 682.9 CELL ULITIS AND ABSCESS OF UNSPECIFIED SITES 03/22/2012 ANGELICA CONLEY DO 682.9 CELLULITIS AND ABSCESS OF UNSPECIFIED SITES 03/22/2012 FERNY SILVERIO MD2.9 Cellulitis And Abscess Of Unspecified Sites 03/22/2012 FERNY SIVLERIO MD 682.9 Cellulitis And Abscess Of Unspecified Sites 03/22/2012 682.9 Cell ulitis And Abscess Of Unspecified Sites 03/22/2012 682.9 Cell ulitis And Abscess Of Unspecified Sites 03/22/2012 682.9 Cell ulitis And Abscess Of Unspecified Sites 03/22/2012 682.9 Cell ulitis And Abscess Of Unspecified Sites 03/22/2012 ANGELICA [...] And Abscess Of Unspecified Sites 03/22/2012 682.9 CELL ULITIS AND ABSCESS OF UNSPECIFIED SITES 03/22/2012 FERNY SILVERIO MD2.9 Cellulitis And Abscess Of Unspecified Sites 03/22/2012 FERNY SILVERIO MD2.9 Cellulitis And Abscess Of Unspecified Sites 03/22/2012 YUDITH SHARIF APRN 682 .9 Cellulitis And Abscess Of Unspecified Sites 03/22/2012 FERNY SILVERIO MD 682.9 Cellulitis And Abscess Of Unspecified Sites 04/28/2012 380.10 INF ECTIVE OTITIS EXTERNA UNSPECIFIED 04/28/2012 ANGELICA CONLEY DO 380.10 INFECTIVE OTITIS EXTERNA UNSPECIFIED 04/28/2012 FERNY SILVERIO MD 380.1 0 INFECTIVE OTITIS EXTERNA UNSPECIFIED 04/28/2012 FERNY SILVERIO MD 380.1 0 Infective Otitis Externa Unspecified 04/28/2012 380.10 Inf ective Otitis Externa Unspecified 04/28/2012 380.10 Inf ective Otitis Externa Unspecified 04/28/2012 380.10 Inf ective Otitis Externa Unspecified 04/28/2012 380.10 Inf ective Otitis Externa Unspecified 04/28/2012 ANGELICA CONLEY DO 380.10 Infective Otitis Externa Unspecified 04/28/2012 FERNY SILVERIO MD 380.1 0 Infective Otitis Externa Unspecified 04/28/2012 ANGELICA CONLEY DO 380.10 Infective Otitis Externa Unspecified 04/28/2012 ANGELICA CONLEY DO 380.10 Infective Otitis Externa Unspecified 04/28/2012 FERNY SILVERIO MD 380.1 0 Infective Otitis Externa Unspecified 04/28/2012 FERNY SILVERIO MD 380.1 0 Infective Otitis Externa Unspecified 04/28/2012 FERNY SILVERIO MD 380.1 0 Infective Otitis Externa Unspecified 04/28/2012 FERNY SILVERIO MD 380.1 0 Infective Otitis Externa Unspecified 04/28/2012 FERNY SILVERIO MD 380.1 0 Infective Otitis Externa Unspecified 04/28/2012 FERNY SILVERIO MD 380.1 0 Infective Otitis Externa Unspecified 04/28/2012 ANGELICA CONLEY DO 380.10 Infective Otitis Externa Unspecified 04/28/2012 FRENY SILVERIO MD 380.1 0 Infective Otitis Externa Unspecified 04/28/2012 FERNY SILVERIO MD 380.1 0 Infective Otitis Externa Unspecified 04/28/2012 YUDITH SHARIF APRN 380 .10 Infective Otitis Externa Unspecified 04/28/2012 FERNY SILVERIO MD 380.1 0 Infective Otitis Externa Unspecified 05/16/2012 ANGELICA CONLEY DO 730.10 OSTEOMYELITIS 05/16/2012 FERNY SILVERIO MD 730.1 0 Osteomyelitis 05/16/2012 FERNY SILVERIO MD 730.1 0 Osteomyelitis 05/16/2012 730.10 Ost eomyelitis 05/16/2012 730.10 Ost eomyelitis 05/16/2012 730.10 Ost eomyelitis 05/16/2012 730.10 Ost eomyelitis 05/16/2012 ANGELICA CONLEY DO 730.10 Osteomyelitis 05/16/2012 FERNY SILVERIO MD 730.1 0 Osteomyelitis 05/16/2012 ANGELICA CONLEY DO 730.10 Osteomyelitis 05/16/2012 ANGELICA CONLEY DO 730.10 Osteomyelitis 05/16/2012 FERNY SILVERIO MD 730.1 0 Osteomyelitis 05/16/2012 FERNY SILVERIO MD 730.1 0 Osteomyelitis 05/16/2012 FERNY SILVERIO MD 730.1 0 Osteomyelitis 05/16/2012 FERNY SILVERIO MD 730.1 0 Osteomyelitis 05/16/2012 FERNY SILVERIO MD 730.1 0 Osteomyelitis 05/16/2012 FERNY SILVERIO MD 730.1 0 Osteomyelitis 05/16/2012 ANGELICA CONLEY DO 730.10 Osteomyelitis 05/16/2012 FERNY SILVERIO MD 730.1 0 Osteomyelitis 05/16/2012 FERNY SILVERIO MD 730.1 0 Osteomyelitis 05/16/2012 YUDITH SHARIF APRN 730 .10 Osteomyelitis 05/16/2012 FERNY SILVERIO MD 730.1 0 Osteomyelitis 06/13/2012 FERNY SILVERIO MD 924.9 CONTUSION OF UNSPECIFIED SITE 06/13/2012 FERNY SILVERIO MD 924.9 Contusion Of Unspecified Site 06/13/2012 924.9 Cont usion Of Unspecified Site 06/13/2012 924.9 Cont usion Of Unspecified Site 06/13/2012 924.9 Cont usion Of Unspecified Site 06/13/2012 924.9 Cont usion Of Unspecified Site 06/13/2012 ANGELICA CONLEY DO 924.9 Contusion Of Unspecified Site 06/13/2012 FERNY SILVERIO MD 924.9 Contusion Of Unspecified Site 06/13/2012 ANGELICA CONLEY DO 924.9 Contusion Of Unspecified Site 06/13/2012 LATA CONLEY DOA K 924.9 Contusion Of Unspecified Site 06/13/2012 JEAN CLAUDE SCHWARTZ, FERNY 924.9 Contusion Of Unspecified Site 06/13/2012 JEAN CLAUDE SCHWARTZ, FERNY 924.9 Contusion Of Unspecified Site 06/13/2012 JEAN CLAUDE SCHWARTZ, FERNY 924.9 Contusion Of Unspecified Site 06/13/2012 JEAN CLAUDE SCHWARTZ, FERNY 924.9 Contusion Of Unspecified Site 06/13/2012 JEAN CLAUDE SCHWARTZ, FERNY 924.9 Contusion Of Unspecified Site 06/13/2012 JEAN CLAUDE SCHWARTZ, FERNY 924.9 Contusion Of Unspecified Site 06/13/2012 ANGELICA CONLEY DO 924.9 Contusion Of Unspecified Site 06/13/2012 JEAN CLAUDE SCHWARTZ, FERNY 924.9 Contusion Of Unspecified Site 06/13/2012 JEAN CLAUDE SCHWARTZ, FERNY 924.9 Contusion Of Unspecified Site 06/13/2012 ELAINEShelly KAYLIE YUDITH L 924 .9 Contusion Of Unspecified Site 06/13/2012 FERNY SILVERIO MD 924.9 Contusion Of Unspecified Site 08/22/2012 FERNY SILVERIO MD 466.0 ACUTE BRONCHITIS 08/22/2012 466.0 ACUT E BRONCHITIS 08/22/2012 466.0 ACUT E BRONCHITIS 08/22/2012 466.0 ACUT E BRONCHITIS 08/22/2012 466.0 ACUT E BRONCHITIS 08/22/2012 LATA CONLEY DOA K 466.0 ACUTE BRONCHITIS 08/22/2012 FERNY SILVERIO MD 466.0 ACUTE BRONCHITIS 08/22/2012 LATA CONLEY DOA K 466.0 ACUTE BRONCHITIS 08/22/2012 CONLEY LATA REYEZA K 466.0 ACUTE BRONCHITIS 08/22/2012 FERNY SILVERIO MD 466.0 ACUTE BRONCHITIS 08/22/2012 FERNY SILVERIO MD 466.0 ACUTE BRONCHITIS 08/22/2012 FERNY SILVERIO MD 466.0 ACUTE BRONCHITIS 08/22/2012 FERNY SILVERIO MD 466.0 ACUTE BRONCHITIS 08/22/2012 FERNY SILVERIO MD 466.0 ACUTE BRONCHITIS 08/22/2012 FERNY SILVERIO MD 466.0 ACUTE BRONCHITIS 08/22/2012 ANGELICA CONLEY DO K 466.0 ACUTE BRONCHITIS 08/22/2012 JEAN CLAUDE SCHWARTZ, FERNY 466.0 ACUTE BRONCHITIS 08/22/2012 JEAN CLAUDE SCHWARTZ, FERNY 466.0 ACUTE BRONCHITIS 08/22/2012 YUDITH SHARIF APRN 466 .0 ACUTE BRONCHITIS 08/22/2012 JEAN CLAUDE SCHWARTZ, FERNY 466.0 ACUTE BRONCHITIS 01/25/2013 V58.31 WOU ND DRESSING 01/25/2013 ANGELICA CONLEY DO K V58.31 WOUND DRESSING 01/25/2013 JEAN CLAUDE SCHWARTZ, FERNY V58.3 1 WOUND DRESSING 01/25/2013 CONLEY DO ANGELICA K V58.31 WOUND DRESSING 01/25/2013 LATA CONLEY DOA K V58.31 WOUND DRESSING 01/25/2013 JEAN CLAUDE SCHWARTZ, FERNY V58.3 1 WOUND DRESSING 01/25/2013 FERNY SILVERIO MD V58.3 1 WOUND DRESSING 01/25/2013 FERNY SILVERIO MD V58.3 1 WOUND DRESSING 01/25/2013 FERNY SILVERIO MD V58.3 1 WOUND DRESSING 01/25/2013 FERNY SILVERIO MD V58.3 1 WOUND DRESSING 01/25/2013 FERNY SILVERIO MD V58.3 1 WOUND DRESSING 01/25/2013 ANGELICA CONLEY DO K V58.31 WOUND DRESSING 01/25/2013 JEAN CLAUDE SCHWARTZ, FERNY V58.3 1 WOUND DRESSING 01/25/2013 FERNY SILVERIO MD V58.3 1 WOUND DRESSING 01/25/2013 YUDITH SHARIF APRN V58 .31 WOUND DRESSING 01/25/2013 JEAN CLAUDE SCHWARTZ, FERNY V58.3 1 WOUND DRESSING 06/14/2013 ANGELICA CONLEY DO K 466.0 BRONCHITIS, ACUTE 06/14/2013 FERNY SILVERIO MD 466.0 BRONCHITIS, ACUTE 06/14/2013 JEAN CLAUDE SCHWARTZ, FERNY 466.0 BRONCHITIS, ACUTE 06/14/2013 JEAN CLAUDE SCHWARTZ, FERNY 466.0 BRONCHITIS, ACUTE 06/14/2013 JEAN CLAUDE SCHWARTZ, FERNY 466.0 BRONCHITIS, ACUTE 06/14/2013 JEAN CLAUDE SCHWARTZ, FERNY 466.0 BRONCHITIS, ACUTE 06/14/2013 JEAN CLAUDE SCHWARTZ, FERNY 466.0 BRONCHITIS, ACUTE 06/14/2013 ANGELICA CONLEY DO K 466.0 BRONCHITIS, ACUTE 06/14/2013 FERNY SILVERIO MD 466.0 BRONCHITIS, ACUTE 06/14/2013 FERNY SILVERIO MD 466.0 BRONCHITIS, ACUTE 06/14/2013 YUDITH SHARIF APRN 466 .0 BRONCHITIS, ACUTE 06/14/2013 FERNY SILVERIO MD 466.0 BRONCHITIS, ACUTE 08/01/2013 FERNY SILVERIO MD Ot V58.81 02/04/2014 LIOR SCHWARTZ, DELL A Ot 250. 00 02/04/2014 LIOR SCHWARTZ, DELL David Ot 401. 9 02/04/2014 LIOR SCHWARTZ, DELL A Ot 724. 5 02/04/2014 LIOR SCHWARTZ, DELL A Ot 780. 60 02/19/2014 FERNY SILVERIO MD 686.9 UNSPECIFIED LOCAL INFECTION OF SKIN AND SUBCUTANEOUS TISSUE 02/19/2014 ANGELICA CONLEY DO 686.9 UNSPECIFIED LOCAL INFECTION OF SKIN AND SUBCUTANEOUS TISSUE 02/19/2014 FERNY SILVERIO MD 686.9 UNSPECIFIED LOCAL INFECTION OF SKIN AND SUBCUTANEOUS TISSUE 02/19/2014 FERNY SILVERIO MD 686.9 UNSPECIFIED LOCAL INFECTION OF SKIN AND SUBCUTANEOUS TISSUE 02/19/2014 YUDITH SHARIF APRN 686 .9 UNSPECIFIED LOCAL INFECTION OF SKIN AND SUBCUTANEOUS TISSUE 02/19/2014 FERNY SILVERIO MD 686.9 UNSPECIFIED LOCAL INFECTION OF SKIN AND SUBCUTANEOUS TISSUE 03/14/2014 ANGELICA CONLEY DO V04.81 FLU SHOT 03/14/2014 FERNY SILVERIO MD V04.8 1 FLU SHOT 03/14/2014 FERNY SILVERIO MD V04.8 1 FLU SHOT 03/14/2014 YUDITH SHARIF APRN V04 .81 FLU SHOT 03/14/2014 FERNY SILVERIO MD V04.8 1 FLU SHOT 03/20/2014 Ot V58.81 04/18/2014 FERNY SILVERIO MD Ot V58.81 04/18/2014 FERNY SILVERIO MD Ot V58.81 04/18/2014 FERNY SILVERIO MD Ot V58.81 04/18/2014 FERNY SILVERIO MD Ot V58.81 04/19/2014 FERNY SILVERIO MD Ot V58.81 04/24/2014 FERNY SILVERIO MD 780.7 9 OTHER MALAISE AND FATIGUE 04/24/2014 FERNY SILVERIO MD 780.7 9 OTHER MALAISE AND FATIGUE 04/24/2014 YUDITH SHARIF APRN 780 .79 OTHER MALAISE AND FATIGUE 04/24/2014 FERNY SILVERIO MD 780.7 9 OTHER MALAISE AND FATIGUE 05/22/2014 FERNY SILVERIO MD, Ot V58.81 05/28/2014 FERNY SILVERIO MD Ot V58.81 06/01/2014 FERNY SILVERIO MD V58.8 1 FITTING AND ADJUSTMENT OF VASCULAR CATHETER 06/01/2014 YUDITH SHARIF APRN V58 .81 FITTING AND ADJUSTMENT OF VASCULAR CATHETER 06/01/2014 FERNY SILVERIO MD V58.8 1 FITTING AND ADJUSTMENT OF VASCULAR CATHETER 06/02/2014 YUDITH SHARIF APRN 461 .9 SINUSITIS ACUTE 06/02/2014 FERNY SILVERIO MD 461.9 SINUSITIS ACUTE 06/13/2014 ABNER HAMILTON Ot 487.1 06/13/2014 ABNER HAMILTON Ot 780.60 06/19/2014 FERNY SILVERIO MD Ot V58.81 06/19/2014 JEAN CLAUDE SCHWARTZ, FERNY Guerrero Ot V58.81 07/17/2014 JEAN CLAUDE SCHWARTZ, FERNY Guerrero Ot V58.81 07/17/2014 JEAN CLAUDE SCHWARTZ, FERNY Guerrero Ot V58.81 07/17/2014 JEAN CLAUDE SCHWATRZ, FERNY Guerrero Ot V58.81 07/17/2014 JEAN CLAUDE SCHWARTZ, FERNY Guerrero Ot V58.81 07/18/2014 JEAN CLAUDE SCHWARTZ, FERNY Guerrero Ot V58.81 07/18/2014 JEAN CLAUDE SCHWARTZ, FERNY Guerrero Ot V58.81 07/19/2014 JEAN CLAUDE SCHWARTZ, FERNY Guerrero Ot V58.81 07/19/2014 JEAN CLAUDE SCHWARTZ, FERNY Guerrero Ot V58.81 08/07/2014 Ot 327.26 SLE EP RELATED HYPOVENTILATION/HYPOXEMIA 08/07/2014 Ot 786.09 RES PIRATORY ABNORM NEC 08/10/2014 FERNY SILVERIO MD 696.1 OTHER PSORIASIS AND SIMILAR DISORDERS 08/27/2014 FERNY SILVERIO MD Ot V58.81 09/07/2014 FERNY SILVERIO MD V58.6 9 LONG-TERM (CURRENT) USE OF OTHER MEDICATIONS 09/07/2014 JEAN CLAUDE SCHWARTZ, FERNY V74.1 TB SCREENING 09/17/2014 JEAN CLAUDE SCHWARTZ, FERNY Cesar Ot V58.81 10/15/2014 JEAN CLAUDE SCHWARTZ, FERNY Guerrero Ot V58.81 FIT/ADJ VASCULAR CATHETER 10/17/2014 JEAN CLAUDE SCHWARTZ, FERNY Guerrero Ot V58.81 10/17/2014 JEAN CLAUDE SCHWARTZ, FERNY [...] VASCULAR CATHETER 01/23/2015 JEAN CLAUDE SCHWARTZ, FERNY Cesar Ot V58.81 01/23/2015 JEAN CLAUDE SCHWARTZ, FERNY Cesar Ot V58.81 01/23/2015 JEAN CLAUDE SCHWARTZ, FERNY Cesar Ot V58.81 01/24/2015 JEAN CLAUDE SCHWARTZ, FERNY Cesar Ot V58.81 02/20/2015 JEAN CLAUDE SCHWARTZ, FERNY Cesar Ot V58.81 02/27/2015 JEAN CLAUDE SCHWARTZ, FERNY Cesar Ot V58.81 FIT/ADJ VASCULAR CATHETER 03/12/2015 JEAN CLAUDE SCHWARTZ, FERNY Guerrero Ot L08 .9 03/12/2015 JEAN CLAUDE SCHWARTZ, FERNY Guerrero Ot Z45 .2 03/21/2015 Ot M54.15 03/21/2015 Ot M62.830 03/26/2015 Ot M54.15 03/26/2015 Ot M62.830 04/05/2015 JEAN CLAUDE SCHWARTZ, FERNY Guerrero Ot L08 .9 04/05/2015 JEAN CLAUDE SCHWARTZ, FERNY Guerrero Ot Z45 .2 04/16/2015 Ot M54.15 04/16/2015 Ot M62.830 04/23/2015 Ot M54.15 04/23/2015 Ot M62.830 04/29/2015 Ot M54.15 04/29/2015 Ot M62.830 04/29/2015 JEAN CLAUDE SCHWARTZ, FERNY Guerrero Ot L08 .9 04/29/2015 JEAN CLAUDE SCHWARTZ, FERNY Guerrero Ot Z45 .2 05/03/2015 JEAN CLAUDE SCHWARTZ, FERNY Guerrero Ot L08 .9 05/03/2015 JEAN CLAUDE SCHWARTZ, FERNY Guerrero Ot Z45 .2 05/21/2015 JEAN CLAUDE SCHWARTZ, FERNY Guerrero Ot L08 .9 05/21/2015 JEAN CLAUDE SCHWARTZ, FERNY Guerrero Ot Z45 .2 05/30/2015 JEAN CLAUDE SCHWARTZ, FERNY Guerrero Ot L08 .9 LOCAL INFECTION OF THE SKIN AND SUBCUTAN 05/30/2015 JEAN CLAUDE SCHWARTZ, FERNY Guerrero Ot Z45 .2 ENCOUNTER FOR ADJUSTMENT AND MANAGEMENT 06/07/2015 JEAN CLAUDE SCHWARTZ, FERNY Guerrero Ot L08 .9 06/07/2015 JEAN CLAUDE SCHWARTZ, FERNY Guerrero Ot Z45 .2 06/07/2015 JEAN CLAUDE SCHWARTZ, FERNY Guerrero Ot L08 .9 06/07/2015 JEAN CLAUDE SCHWARTZ, FERNY Guerrero Ot Z45 .2 06/07/2015 JEAN CLAUDE SCHWARTZ, FERNY Guerrero Ot L08 .9 06/07/2015 JEAN CLAUDE SCHWARTZ, FERNY uGerrero Ot Z45 .2 06/10/2015 JEAN CLAUDE SCHWARTZ, FERNY Guerrero Ot L08 .9 06/10/2015 JEAN CLAUDE SCHWARTZ, FERNY Guerrero Ot Z45 .2 06/21/2015 Ot M54.15 06/21/2015 Ot M62.830 06/21/2015 ROHAN MANUEL DO Ot M54 .9 07/03/2015 JEAN CLAUDE SCHWARTZ, FERNY Guerrero Ot L08 .9 07/03/2015 JEAN CLAUDE SCHWARTZ, FERNY Guerrero Ot Z45 .2 07/15/2015 Ot M54.15 07/15/2015 Ot M62.830 07/15/2015 ROHAN MANUEL DO Ot M54 .9 07/15/2015 NICOLAS BRANDON PAC Ot Z51.81 07/15/2015 NICOLAS BRANDON PAC Ot Z79.899 07/15/2015 JEAN CLAUDE SCHWARTZ, FERNY Guerrero Ot L08 .9 07/15/2015 JEAN CLAUDE SCHWARTZ, FERNY Guerrero Ot Z45 .2 07/15/2015 RAQUEL SCHWARTZ, ROHAN Hernandez Ot E11.621 07/15/2015 RAQUEL SCHWARTZ, ROHAN Hernandez Ot L97.512 07/18/2015 ROHAN MANUEL DO Ot M54 .9 07/22/2015 Ot M54.15 07/22/2015 Ot M62.830 07/22/2015 MAR REYEZ, ROHAN Siu Ot M54 .9 07/22/2015 VEDIZ, NICOLAS H PAC Ot Z51.81 07/22/2015 VEDIZ, NICOLAS H PAC Ot Z79.899 07/22/2015 JEAN CLAUDE SCHWARTZ, FERNY Guerrero Ot L08 .9 07/22/2015 JEAN CLAUDE SCHWARTZ, FERNY Guerrero Ot Z45 .2 07/22/2015 RAQUEL SCHWARTZ, ROHAN Hernandez Ot E11.621 07/22/2015 RAQUEL SCHWARTZ, ROHAN Hernandez Ot L97.512 07/22/2015 RAQUEL SCHWARTZ, ROHAN Hernandez Ot I73 .9 07/22/2015 Ot M54.15 07/22/2015 Ot M62.830 07/22/2015 MAR REYEZ, ROHAN Siu Ot M54 .9 07/22/2015 VERUBIO, NICOLAS H PAC Ot Z51.81 07/22/2015 VERUBIO, NICOLAS H PAC Ot Z79.899 07/22/2015 JEAN CLAUDE SCHWARTZ, FERNY Guerrero Ot L08 .9 07/22/2015 JEAN CLAUDE SCHWARTZ, FERNY Guerrero Ot Z45 .2 07/22/2015 RAQUEL SCHWARTZ, ROHAN Hernandez Ot E11.621 07/22/2015 RAQUEL SCHWARTZ, ROHAN Hernandez Ot L97.512 07/22/2015 RAQUEL SCHWARTZ, ROHAN Hernandez Ot I73 .9 07/24/2015 Ot M54.15 07/24/2015 Ot M62.830 08/02/2015 JEAN CLAUDE SCHWARTZ, FERNY Guerrero Ot L08 .9 08/02/2015 JEAN CLAUDE SCHWARTZ, FERNY Guerrero Ot Z45 .2 08/15/2015 JEAN CLAUDE SCHWARTZ, FERNY Guerrero Ot L08 .9 08/15/2015 JEAN CLAUDE SCHWARTZ, FERNY Guerrero Ot Z45 .2 08/15/2015 RAQUEL SCHWARTZ, ROHAN Hernandez Ot I73 .9 08/16/2015 RAQUEL SCHWARTZ, ROHAN Hernandez Ot I73 .9 08/30/2015 JEAN CLAUDE SCHWARTZ, FERNY Guerrero Ot L08 .9 08/30/2015 JEAN CLAUDE SCHWARTZ, FERNY Guerrero Ot Z45 .2 09/05/2015 JEAN CLAUDE SCHWARTZ, FERNY uGerrero Ot L08 .9 LOCAL INFECTION OF THE SKIN AND SUBCUTAN 09/05/2015 HUERTFERNY MACEDO MD, Ot Z45 .2 ENCOUNTER FOR ADJUSTMENT AND MANAGEMENT 10/04/2015 FERNY SILVERIO MD, Ot L08 .9 LOCAL INFECTION OF THE SKIN AND SUBCUTAN 10/04/2015 FERNY SILVERIO MD, Ot Z45 .2 ENCOUNTER FOR ADJUSTMENT AND MANAGEMENT 10/07/2015 FERNY SILVERIO MD, Ot L08 .9 LOCAL INFECTION OF THE SKIN AND SUBCUTAN 10/07/2015 FERNY SILVERIO MD, Ot Z45 .2 ENCOUNTER FOR ADJUSTMENT AND MANAGEMENT 10/08/2015 NICOLAS BRANDON PAC Ot Z51.81 ENCOUNTER FOR THERAPEUTIC DRUG LEVEL MON 10/08/2015 NICOLAS BRANDON PAC Ot 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 10/22/2015 ROHAN GARCÍA MD, Ot I73 .9 PERIPHERAL VASCULAR DISEASE, UNSPECIFIED 11/04/2015 FERNY SILVERIO MD, Ot L08 .9 LOCAL INFECTION OF THE SKIN AND SUBCUTAN 11/04/2015 FERNY SILVERIO MD, Ot Z45 .2 ENCOUNTER FOR ADJUSTMENT AND MANAGEMENT 11/21/2015 ROHAN GARCÍA MD Ot I73 .9 PERIPHERAL VASCULAR DISEASE, UNSPECIFIED 12/04/2015 FERNY SILVERIO MD, Ot L08 .9 LOCAL INFECTION OF THE SKIN AND SUBCUTAN 12/04/2015 FERNY SILVERIO MD, Ot Z45 .2 ENCOUNTER FOR ADJUSTMENT AND MANAGEMENT 12/12/2015 FERNY SILVERIO MD, Ot L08 .9 LOCAL INFECTION OF THE SKIN AND SUBCUTAN 12/12/2015 FERNY SILVERIO MD, Ot Z45 .2 ENCOUNTER FOR ADJUSTMENT AND MANAGEMENT 12/16/2015 Ot M54.15 RAD ICULOPATHY, THORACOLUMBAR REGION 12/16/2015 Ot M62.830 MU SCLE SPASM OF BACK 12/27/2015 FERNY SILVERIO MD, Ot L08 .9 LOCAL INFECTION OF THE SKIN AND SUBCUTAN 12/27/2015 FERNY SILVERIO MD, Ot Z45 .2 ENCOUNTER FOR ADJUSTMENT AND MANAGEMENT 01/01/2016 FERNY SILVERIO MD, Ot L08 .9 LOCAL INFECTION OF THE SKIN AND SUBCUTAN 01/01/2016 FERNY SILVERIO MD, Ot Z45 .2 ENCOUNTER FOR ADJUSTMENT AND MANAGEMENT 01/02/2016 FERNY SILVERIO MD, Ot L08 .9 LOCAL INFECTION OF THE SKIN AND SUBCUTAN 01/02/2016 FERNY SILVERIO MD, Ot Z45 .2 ENCOUNTER FOR ADJUSTMENT AND MANAGEMENT 01/05/2016 FERNY SILVERIO MD, Ot L08 .9 LOCAL INFECTION OF THE SKIN AND SUBCUTAN 01/05/2016 FERNY SILVERIO MD, Ot Z45 .2 ENCOUNTER FOR ADJUSTMENT AND MANAGEMENT 01/24/2016 Ot M54.15 RAD ICULOPATHY, THORACOLUMBAR REGION 01/24/2016 Ot M62.830 MU SCLE SPASM OF BACK 01/31/2016 FERNY SILVERIO MD, Ot L08 .9 LOCAL INFECTION OF THE SKIN AND SUBCUTAN 01/31/2016 FERNY SILVERIO MD, Ot Z45 .2 ENCOUNTER FOR ADJUSTMENT AND MANAGEMENT 01/31/2016 FERNY SILVERIO MD, Ot L08 .9 LOCAL INFECTION OF THE SKIN AND SUBCUTAN 01/31/2016 FERNY SILVERIO MD, Ot Z45 .2 ENCOUNTER FOR ADJUSTMENT AND MANAGEMENT 02/04/2016 LUCAS SCHWARTZ, DIANA Hernandez Ot M86.9 OSTEOMYELITIS, UNSPECIFIED 02/05/2016 LUCAS SCHWARTZ, DIANA A Ot M86.9 OSTEOMYELITIS, UNSPECIFIED 02/06/2016 LUCAS SCHWARTZ, DIANA A Ot M86.9 OSTEOMYELITIS, UNSPECIFIED 02/06/2016 LUCAS SCHWARTZ, DIANA A Ot M86.9 OSTEOMYELITIS, UNSPECIFIED 02/07/2016 LUCAS SCHWARTZ, DIANA A Ot M86.9 OSTEOMYELITIS, UNSPECIFIED 02/08/2016 LUCAS SCHWARTZ, DIANA A Ot M86.9 OSTEOMYELITIS, UNSPECIFIED 02/09/2016 LUCAS SCHWARTZ, DIANA A Ot M86.9 OSTEOMYELITIS, UNSPECIFIED 02/10/2016 LUCAS SCHWARTZ, DIANA A Ot M86.9 OSTEOMYELITIS, UNSPECIFIED 02/11/2016 LUCAS SCHWARTZ, DIANA A Ot M86.9 OSTEOMYELITIS, UNSPECIFIED 02/12/2016 LUCAS SCHWARTZ, [...] M86.9 OSTEOMYELITIS, UNSPECIFIED 03/15/2016 LUCAS SCHWARTZ, DIANA Hernandez Ot M86.9 OSTEOMYELITIS, UNSPECIFIED 03/16/2016 LUCAS SCHWARTZ, DIANA A Ot M86.9 OSTEOMYELITIS, UNSPECIFIED 03/17/2016 LUCAS SCHWARTZ, DIANA A Ot M86.9 OSTEOMYELITIS, UNSPECIFIED 03/17/2016 LUCAS SCHWARTZ, DIANA Hernandez Ot M86.9 OSTEOMYELITIS, UNSPECIFIED 03/18/2016 LCUAS SCHWARTZ, DIANA A Ot M86.9 OSTEOMYELITIS, UNSPECIFIED 03/18/2016 LUCAS SCHWARTZ, DIANA A Ot M86.9 OSTEOMYELITIS, UNSPECIFIED 03/19/2016 Ot M54.15 RAD ICULOPATHY, THORACOLUMBAR REGION 03/19/2016 Ot M62.830 MU SCLE SPASM OF BACK 03/19/2016 LUCAS SCHWARTZ, DIANA A Ot M86.9 OSTEOMYELITIS, UNSPECIFIED 03/20/2016 LUCAS SCHWARTZ, DIANA Hernandez Ot M86.9 OSTEOMYELITIS, UNSPECIFIED 03/21/2016 LUCAS SCHWARTZ, DIANA Hernandez Ot M86.9 OSTEOMYELITIS, UNSPECIFIED 03/22/2016 LUCAS SCHWARTZ, DIANA A Ot M86.9 OSTEOMYELITIS, UNSPECIFIED 03/23/2016 LUCAS SCHWARTZ, DIANA A Ot M86.9 OSTEOMYELITIS, UNSPECIFIED 03/24/2016 LUCAS SCHWARTZ, DIANA A Ot M86.9 OSTEOMYELITIS, UNSPECIFIED 03/25/2016 LUCAS SCHWARTZ, DIANA A Ot M86.9 OSTEOMYELITIS, UNSPECIFIED 03/26/2016 LUCAS SCHWARTZ, DIANA A Ot M86.9 OSTEOMYELITIS, UNSPECIFIED 03/27/2016 LUCAS SCHWARTZ, DIANA Hernandez Ot M86.9 OSTEOMYELITIS, UNSPECIFIED 03/27/2016 LUCAS SCHWARTZ, DIANA A Ot M86.9 OSTEOMYELITIS, UNSPECIFIED 03/28/2016 LUCAS SCHWARTZ, DIANA A Ot M86.9 OSTEOMYELITIS, UNSPECIFIED 03/29/2016 LUCAS SCHWARTZ, DIANA Hernandez Ot M86.9 OSTEOMYELITIS, UNSPECIFIED 03/30/2016 LUCAS SCHWARTZ, DIANA A Ot M86.9 OSTEOMYELITIS, UNSPECIFIED 03/30/2016 LUCAS SCHWARTZ, DIANA A Ot M86.9 OSTEOMYELITIS, UNSPECIFIED 04/08/2016 LUCAS SCHWARTZ, DIANA A Ot M86.9 OSTEOMYELITIS, UNSPECIFIED 04/20/2016 LUCAS SCHWARTZ, DIANA A Ot M86.9 OSTEOMYELITIS, UNSPECIFIED 04/29/2016 Ot M54.15 RAD ICULOPATHY, THORACOLUMBAR REGION 04/29/2016 Ot M62.830 MU SCLE SPASM OF BACK 04/29/2016 ROHAN MANUEL DO Ot M54 .9 DORSALGIA, UNSPECIFIED 04/29/2016 VEDIZ, NICOLAS H PAC Ot Z51.81 ENCOUNTER FOR THERAPEUTIC DRUG LEVEL MON 04/29/2016 VEDIZ, NICOLAS H PAC Ot 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 04/29/2016 ROHAN GARCÍA MD Ot E11.621 TYPE 2 DIABETES MELLITUS WITH FOOT ULCER 04/29/2016 ROHAN GARCÍA MD Ot L97.512 NON-PRS CHRONIC ULCER OTH PRT RIGHT FOOT 04/29/2016 ROHAN GARCÍA MD Ot I73 .9 PERIPHERAL VASCULAR DISEASE, UNSPECIFIED 04/29/2016 VEDIZ, NICOLAS H PAC Ot Z51.81 ENCOUNTER FOR THERAPEUTIC DRUG LEVEL MON 04/29/2016 VEDIZ, NICOLAS H PAC Ot 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 04/29/2016 FERNY SILVERIO MD Ot L08 .9 LOCAL INFECTION OF THE SKIN AND SUBCUTAN 04/29/2016 FERNY SILVERIO MD Ot Z45 .2 ENCOUNTER FOR ADJUSTMENT AND MANAGEMENT 04/29/2016 LUCAS SCHWARTZ, DIANA Hernandez Ot M86.9 OSTEOMYELITIS, UNSPECIFIED 04/29/2016 ROHAN MANUEL DO Ot M54 .9 DORSALGIA, UNSPECIFIED 04/29/2016 VEDIZ, NICOLAS H PAC Ot Z51.81 ENCOUNTER FOR THERAPEUTIC DRUG LEVEL MON 04/29/2016 VEDICampos, NICOLAS H PAC Ot Z79.899 OTHER [facility] (CURRENT) 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 04/29/2016 ROHAN GARCÍA MD Ot E11.621 TYPE 2 DIABETES MELLITUS WITH FOOT ULCER 04/29/2016 ROHAN GARCÍA MD Ot L97.512 NON-PRS CHRONIC ULCER OTH PRT RIGHT FOOT 04/29/2016 ROHAN GARCÍA MD Ot I73 .9 PERIPHERAL VASCULAR DISEASE, UNSPECIFIED 04/29/2016 VEDIZ, NICOLAS H PAC Ot Z51.81 ENCOUNTER FOR THERAPEUTIC DRUG LEVEL MON 04/29/2016 VEDIZ, NICOLAS H PAC Ot Z79.899 OTHER [facility] (CURRENT) 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 04/29/2016 FERNY SILVERIO MD Ot L08 .9 LOCAL INFECTION OF THE SKIN AND SUBCUTAN 04/29/2016 FERNY SILVERIO MD Ot Z45 .2 ENCOUNTER FOR ADJUSTMENT AND MANAGEMENT 04/29/2016 LUCAS SCHWARTZ, DIANA Hernandez Ot M86.9 OSTEOMYELITIS, UNSPECIFIED 04/30/2016 LUCAS SCHWARTZ, DIANA Hernandez Ot M86.9 OSTEOMYELITIS, UNSPECIFIED 05/05/2016 VEDIZ, NICOLAS H PAC Ot L40 .0 PSORIASIS VULGARIS 05/05/2016 VEDIZ, NICOLAS H PAC Ot Z79.899 OTHER [facility] (CURRENT) 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 05/27/2016 FERNY SILVERIO MD Ot L08 .9 LOCAL INFECTION OF THE SKIN AND SUBCUTAN 05/27/2016 FERNY SILVERIO MD Ot Z45 .2 ENCOUNTER FOR ADJUSTMENT AND MANAGEMENT 05/27/2016 FERNY SILVERIO MD Ot L08 .9 LOCAL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 ENCOUNTER FOR ADJUSTMENT AND MANAGEMENT 02/27/2018 FERNY SILVERIO MD Ot Z45 .2 ENCOUNTER FOR ADJUSTMENT AND MANAGEMENT 03/04/2018 FERNY SILVERIO MD Ot Z45 .2 ENCOUNTER FOR ADJUSTMENT AND MANAGEMENT 03/05/2018 FERNY SILVERIO MD Ot Z45 .2 ENCOUNTER FOR ADJUSTMENT AND MANAGEMENT 03/07/2018 FERNY SILVERIO MD Ot Z45 .2 ENCOUNTER FOR ADJUSTMENT AND MANAGEMENT 04/01/2018 FERNY SILVERIO MD Ot Z45 .2 ENCOUNTER FOR ADJUSTMENT AND MANAGEMENT 04/06/2018 FERNY SILVERIO MD Ot Z45 .2 ENCOUNTER FOR ADJUSTMENT AND MANAGEMENT 04/13/2018 FERNY SILVERIO MD Ot Z45 .2 ENCOUNTER FOR ADJUSTMENT AND MANAGEMENT 05/09/2018 FERNY SILVERIO MD Ot Z45 .2 ENCOUNTER FOR ADJUSTMENT AND MANAGEMENT 05/12/2018 FERNY SILVERIO MD Ot Z45 .2 ENCOUNTER FOR ADJUSTMENT AND MANAGEMENT 05/16/2018 JAME CROWLEY MD Ot E11.9 TYPE 2 DIABETES MELLITUS WITHOUT COMPLIC 05/16/2018 JAME CROWLEY MD Ot E78.00 PURE HYPERCHOLESTEROLEMIA, UNSPECIFIED 05/16/2018 JAME CROWLEY MD Ot F17.210 NICOTINE DEPENDENCE, CIGARETTES, UNCOMPL 05/16/2018 JAME CROWLEY MD Ot F41.9 ANXIETY DISORDER, UNSPECIFIED 05/16/2018 JAME CROWLEY MD Ot I10 ESSENTIAL (PRIMARY) HYPERTENSION 05/16/2018 JAME CROWLEY MD Ot J44.9 CHRONIC OBSTRUCTIVE PULMONARY DISEASE, U 05/16/2018 JAME CROWLEY MD Ot M54.2 CERVICALGIA 05/16/2018 JAME CROWLEY MD Ot R07.9 CHEST PAIN, UNSPECIFIED 05/16/2018 JAME CROWLEY MD Ot Z79.4 [facility] (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 05/16/2018 JAME CROWLEY MD Ot Z79.82 [facility] (CURRENT) USE OF ASPIRIN 05/16/2018 JAME CROWLEY MD Ot Z87.01 PERSONAL HISTORY OF PNEUMONIA (RECURRENT 05/16/2018 JAME CROWLEY MD Ot Z87.39 PERSONAL HISTORY OF DISEASES OF THE MS S 05/16/2018 JAME CROWLEY MD Ot Z95.9 PRESENCE OF CARDIAC AND VASCULAR IMPLANT 05/17/2018 Ot M54.15 RAD ICULOPATHY, THORACOLUMBAR REGION 05/17/2018 Ot M62.830 MU SCLE SPASM OF BACK 05/18/2018 JAME CROWLEY MD Ot E11.9 TYPE 2 DIABETES MELLITUS WITHOUT COMPLIC 05/18/2018 JAME CROWLEY MD Ot E78.00 PURE HYPERCHOLESTEROLEMIA, UNSPECIFIED 05/18/2018 JAME CROWLEY MD Ot F17.210 NICOTINE DEPENDENCE, CIGARETTES, UNCOMPL 05/18/2018 JAME CROWLEY MD Ot F41.9 ANXIETY DISORDER, UNSPECIFIED 05/18/2018 JAME CROWLEY MD Ot I10 ESSENTIAL (PRIMARY) HYPERTENSION 05/18/2018 JAME CROWLEY MD, Ot J44.9 CHRONIC OBSTRUCTIVE PULMONARY DISEASE, U 05/18/2018 JAME CROWLEY MD, Ot M54.2 CERVICALGIA 05/18/2018 JAME CROWLEY MD, Ot R07.9 CHEST PAIN, UNSPECIFIED 05/18/2018 JAME CROWLEY MD, Ot Z79.4 [facility] (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 05/18/2018 JAME CROWLEY MD, Ot Z79.82 [facility] (CURRENT) USE OF ASPIRIN 05/18/2018 JAME CROWLEY MD, Ot Z87.01 PERSONAL HISTORY OF PNEUMONIA (RECURRENT 05/18/2018 JAME CROWLEY MD, Ot Z87.39 PERSONAL HISTORY OF DISEASES OF THE MS S 05/18/2018 JAME CROWLEY MD, Ot Z95.9 PRESENCE OF CARDIAC AND VASCULAR IMPLANT 06/02/2018 FERNY SILVERIO MD Ot Z45 .2 ENCOUNTER FOR ADJUSTMENT AND MANAGEMENT 06/06/2018 FERNY SILVERIO MD Ot Z45 .2 ENCOUNTER FOR ADJUSTMENT AND MANAGEMENT 06/06/2018 FERNY SILVERIO MD Ot Z45 .2 ENCOUNTER FOR ADJUSTMENT AND MANAGEMENT 07/04/2018 FERNY SILVERIO MD Ot Z45 .2 ENCOUNTER FOR ADJUSTMENT AND MANAGEMENT 07/09/2018 FERNY SILVERIO MD Ot Z45 .2 ENCOUNTER FOR ADJUSTMENT AND MANAGEMENT 07/15/2018 FERNY SILVERIO MD Ot Z45 .2 ENCOUNTER FOR ADJUSTMENT AND MANAGEMENT 08/01/2018 FERNY SILVERIO MD Ot Z45 .2 ENCOUNTER FOR ADJUSTMENT AND MANAGEMENT 08/30/2018 FERNY SILVERIO MD Ot Z45 .2 ENCOUNTER FOR ADJUSTMENT AND MANAGEMENT 09/04/2018 FERNY SILVERIO MD Ot Z45 .2 ENCOUNTER FOR ADJUSTMENT AND MANAGEMENT 09/05/2018 FERNY SILVERIO MD Ot Z45 .2 ENCOUNTER FOR ADJUSTMENT AND MANAGEMENT 10/03/2018 FERNY SILVERIO MD Ot Z45 .2 ENCOUNTER FOR ADJUSTMENT AND MANAGEMENT 10/27/2018 FERNY SILVERIO MD Ot Z87.891 PERSONAL HISTORY OF NICOTINE DEPENDENCE 10/31/2018 FERNY SILVERIO MD Ot Z45 .2 ENCOUNTER FOR ADJUSTMENT AND MANAGEMENT 11/02/2018 FERNY SILVERIO MD Ot Z87.891 PERSONAL HISTORY OF NICOTINE DEPENDENCE 11/02/2018 FERNY SILVERIO MD, Ot Z87.891 PERSONAL HISTORY OF NICOTINE DEPENDENCE 11/03/2018 FERNY SILVERIO MD, Ot Z87.891 PERSONAL HISTORY OF NICOTINE DEPENDENCE 11/13/2018 FERNY SILVERIO MD Ot I25.10 ATHSCL HEART DISEASE OF [place] CORONARY 11/13/2018 FERNY SILVERIO MD, Ot J43 .9 EMPHYSEMA, UNSPECIFIED 11/13/2018 FERNY SILVERIO MD, Ot Z12 .2 ENCNTR SCREEN FOR MALIGNANT NEOPLASM OF 11/13/2018 FERNY SILVERIO MD, Ot Z87.891 PERSONAL HISTORY OF NICOTINE DEPENDENCE 12/02/2018 FERNY SILVERIO MD Ot Z45 .2 ENCOUNTER FOR ADJUSTMENT AND MANAGEMENT 12/02/2018 FERNY SILVERIO MD Ot Z45 .2 ENCOUNTER FOR ADJUSTMENT AND MANAGEMENT 12/07/2018 FERNY SILVERIO MD Ot Z45 .2 ENCOUNTER FOR ADJUSTMENT AND MANAGEMENT 12/21/2018 FERNY SILVERIO MD Ot Z45 .2 ENCOUNTER FOR ADJUSTMENT AND MANAGEMENT 12/21/2018 FERNY SILVERIO MD Ot Z45 .2 ENCOUNTER FOR ADJUSTMENT AND MANAGEMENT 01/02/2019 FERNY SILVERIO MD Ot Z45 .2 ENCOUNTER FOR ADJUSTMENT AND MANAGEMENT 01/02/2019 FERNY SILVERIO MD Ot Z45 .2 ENCOUNTER FOR ADJUSTMENT AND MANAGEMENT 01/02/2019 FERNY SILVERIO MD Ot Z45 .2 ENCOUNTER FOR ADJUSTMENT AND MANAGEMENT 01/08/2019 FERNY SILVERIO MD Ot Z45 .2 ENCOUNTER FOR ADJUSTMENT AND MANAGEMENT 01/17/2019 FERNY SILVERIO MD Ot Z45 .2 ENCOUNTER FOR ADJUSTMENT AND MANAGEMENT 01/31/2019 FERNY SILVERIO MD Ot Z45 .2 ENCOUNTER FOR ADJUSTMENT AND MANAGEMENT 02/28/2019 FERNY SILVERIO MD Ot Z45 .2 ENCOUNTER FOR ADJUSTMENT AND MANAGEMENT 03/07/2019 FERNY SILVERIO MD Ot Z45 .2 ENCOUNTER FOR ADJUSTMENT AND MANAGEMENT 04/04/2019 FERNY SILVERIO MD Ot Z45 .2 ENCOUNTER FOR ADJUSTMENT AND MANAGEMENT 04/09/2019 MARSHA RAI MD Ot E11. 42 TYPE 2 DIABETES MELLITUS WITH DIABETIC P 04/09/2019 MARSHA RAI MD Ot E11. 69 TYPE 2 DIABETES MELLITUS WITH OTHER SPEC 04/09/2019 MARSHA RAI MD Ot E78. 00 PURE HYPERCHOLESTEROLEMIA, UNSPECIFIED 04/09/2019 MARSHA RAI MD Ot F41. 9 ANXIETY DISORDER, UNSPECIFIED 04/09/2019 MARSHA RAI MD Ot I10 ESSENTIAL (PRIMARY) HYPERTENSION 04/09/2019 MARSHA RAI MD, Ot J44. 9 CHRONIC OBSTRUCTIVE PULMONARY DISEASE, U 04/09/2019 MARSHA RAI MD Ot L40. 50 ARTHROPATHIC PSORIASIS, UNSPECIFIED 04/09/2019 MARSHA RAI MD Ot M25.562 PAIN IN LEFT KNEE 04/09/2019 MARSHA RAI MD Ot M86. 9 OSTEOMYELITIS, UNSPECIFIED 04/09/2019 MARSHA RAI MD Ot S92.242A DISP FX OF MEDIAL CUNEIFORM OF LEFT FOOT 04/09/2019 MARSHA RAI MD Ot W01.0XXA FALL SAME LEV FROM SLIP/TRIP W/O STRIKE 04/09/2019 MARSHA RAI MD Ot Z79. 4 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 04/09/2019 MARSHA RAI MD Ot Z79. 82 [facility] (CURRENT) USE OF ASPIRIN 04/09/2019 MARSHA RAI MD Ot Z87. 01 PERSONAL HISTORY OF PNEUMONIA (RECURRENT 04/09/2019 MARSHA RAI MD Ot Z87.891 PERSONAL HISTORY OF NICOTINE DEPENDENCE 04/11/2019 MARSHA RAI MD Ot E11. 42 TYPE 2 DIABETES MELLITUS WITH DIABETIC P 04/11/2019 MARSHA RAI MD Ot E11. 69 TYPE 2 DIABETES MELLITUS WITH OTHER SPEC 04/11/2019 MARSHA RAI MD Ot E78. 00 PURE HYPERCHOLESTEROLEMIA, UNSPECIFIED 04/11/2019 MARSHA RAI MD Ot F41. 9 ANXIETY DISORDER, UNSPECIFIED 04/11/2019 MARSHA RAI MD Ot I10 ESSENTIAL (PRIMARY) HYPERTENSION 04/11/2019 MARSHA RAI MD, Ot J44. 9 CHRONIC OBSTRUCTIVE PULMONARY DISEASE, U 04/11/2019 MARSHA RAI MD Ot L40. 50 ARTHROPATHIC PSORIASIS, UNSPECIFIED 04/11/2019 MARSHA RAI MD Ot M25.562 PAIN IN LEFT KNEE 04/11/2019 MARSHA RAI MD, Ot M86. 9 OSTEOMYELITIS, UNSPECIFIED 04/11/2019 MARSHA RAI MD, Ot S92.242A DISP FX OF MEDIAL CUNEIFORM OF LEFT FOOT 04/11/2019 MARSHA RAI MD, Ot W01.0XXA FALL SAME LEV FROM SLIP/TRIP W/O STRIKE 04/11/2019 MARSHA RAI MD, Ot Z79. 4 [facility] (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 04/11/2019 MARSHA RAI MD, Ot Z79. 82 [employer] (CURRENT) USE OF ASPIRIN 04/11/2019 MARSHA RAI MD, Ot Z87. 01 PERSONAL HISTORY OF PNEUMONIA (RECURRENT 04/11/2019 MARSHA RAI MD, Ot Z87.891 PERSONAL HISTORY OF NICOTINE DEPENDENCE 05/01/2019 FERNY SILVERIO MD, Ot Z45 .2 ENCOUNTER FOR ADJUSTMENT AND MANAGEMENT 05/02/2019 FERNY SILVERIO MD Ot Z45 .2 ENCOUNTER FOR ADJUSTMENT AND MANAGEMENT 05/12/2019 FERNY SILVERIO MD Ot Z95 .9 PRESENCE OF CARDIAC AND VASCULAR IMPLANT 06/07/2019 FERNY SILVERIO MD Ot Z95 .9 PRESENCE OF CARDIAC AND VASCULAR IMPLANT 07/06/2019 FERNY SILVERIO MD Ot Z95 .9 PRESENCE OF CARDIAC AND VASCULAR IMPLANT 07/24/2019 FERNY SILVERIO MD Ot Z95 .9 PRESENCE OF CARDIAC AND VASCULAR IMPLANT 08/01/2019 FERNY SILVERIO MD Ot Z45 .2 ENCOUNTER FOR ADJUSTMENT AND MANAGEMENT 08/01/2019 FERNY SILVERIO MD Ot Z95 .9 PRESENCE OF CARDIAC AND VASCULAR IMPLANT 08/03/2019 FERNY SILVERIO MD Ot Z45 .2 ENCOUNTER FOR ADJUSTMENT AND MANAGEMENT 08/04/2019 FERNY SILVERIO MD Ot Z95 .9 PRESENCE OF CARDIAC AND VASCULAR IMPLANT 08/04/2019 FERNY SILVERIO MD Ot Z95 .9 PRESENCE OF CARDIAC AND VASCULAR IMPLANT 09/04/2019 FERNY SILVERIO MD Ot Z45 .2 ENCOUNTER FOR ADJUSTMENT AND MANAGEMENT 09/21/2019 FERNY SILVERIO MD Ot Z45 .2 ENCOUNTER FOR ADJUSTMENT AND MANAGEMENT 10/02/2019 FERNY SILVERIO MD Ot Z45 .2 ENCOUNTER FOR ADJUSTMENT AND MANAGEMENT 11/02/2019 FERNY SILVERIO MD Ot Z45 .2 ENCOUNTER FOR ADJUSTMENT AND MANAGEMENT 11/06/2019 JEAN CLAUDE SCHWARTZ, FERNY Guerrero Ot Z45 .2 ENCOUNTER FOR ADJUSTMENT AND MANAGEMENT 11/08/2019 JEAN CLAUDE SCHWARTZ, FERNY Guerrero Ot Z45 .2 ENCOUNTER FOR ADJUSTMENT AND MANAGEMENT 11/10/2019 JEAN CLAUDE SCHWARTZ, FERNY Guerrero Ot Z45 .2 ENCOUNTER FOR ADJUSTMENT AND MANAGEMENT 12/05/2019 JEAN CLAUDE SCHWARTZ, FERNY Guerrero Ot Z45 .2 ENCOUNTER FOR ADJUSTMENT AND MANAGEMENT 12/14/2019 JEAN CLAUDE SCHWARTZ, FERNY Guerrero Ot Z45 .2 ENCOUNTER FOR ADJUSTMENT AND MANAGEMENT 12/26/2019 JEAN CLAUDE SCHWARTZ, FERNY Guerrero Ot Z45 .2 ENCOUNTER FOR ADJUSTMENT AND MANAGEMENT 12/26/2019 JEAN CLAUDE SCHWARTZ, FERNY Guerrero Ot Z45 .2 ENCOUNTER FOR ADJUSTMENT AND MANAGEMENT 12/27/2019 LUCAS SCHWARTZ, DIANA Hernandez Ot M86.9 OSTEOMYELITIS, UNSPECIFIED 12/27/2019 JEAN CLAUDE SCHWARTZ, FRENY Guerrero Ot Z45 .2 ENCOUNTER FOR ADJUSTMENT AND MANAGEMENT 12/27/2019 JEAN CLAUDE SCHWARTZ, FERNY Guerrero Ot Z45 .2 ENCOUNTER FOR ADJUSTMENT AND MANAGEMENT 12/27/2019 JEAN CLAUDE SCHWARTZ, FERNY Guerrero Ot Z45 .2 ENCOUNTER FOR ADJUSTMENT AND MANAGEMENT 12/27/2019 JEAN CLAUDE SCHWARTZ, FERNY Guerrero Ot Z45 .2 ENCOUNTER FOR ADJUSTMENT AND MANAGEMENT 12/27/2019 MARIEL BACK DO Ot L97.5 19 NON-PRS CHRONIC ULCER OTH PRT RIGHT FOOT 12/27/2019 MARIEL BACK DO Ot 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) Procedures Code Description [place] [address] URIN E DRUG SCREEN (IN-HOUSE) 04/28/2012 65771 A1C (IN-HOUSE) 04/28/2012 53119 MICR O ALBUMIN-IN HOUSE 04/28/2012 22418 MICR OALBUMIN 04/29/2012 Rodriguez Carr 05/16/2012 93934 GLUC OSE FINGER STICK 08/22/2012 58412 A1C (IN-HOUSE) 08/22/2012 51172 MICR O ALBUMIN-IN HOUSE 08/22/2012 26755 MICR OALBUMIN 08/22/2012 44877 ROUT INE VENIPUNCTURE 08/23/2012 49745 CMP 08/23/20126453096 GF R CALC (RESULT ONLY) 08/23/2012 00338 LIPI D PANEL 08/23/2012 14711 A1C (IN-HOUSE) 11/24/2012 88234 ROUT INE VENIPUNCTURE 03/10/2013 31863 ROUT INE VENIPUNCTURE 03/10/2013 51376 A1C (IN-HOUSE) 03/10/2013 00597 A1C (IN-HOUSE) 03/10/2013 42415 MICR O ALBUMIN-IN HOUSE 03/10/2013 45917 MICR O ALBUMIN-IN HOUSE 03/10/2013 15863 CMP 03/10/2013 29613 CMP 03/10/2013 11020 LIPI D PANEL 03/10/2013 75524 LIPI D PANEL 03/10/2013 31302 MICR OALBUMIN 03/10/2013 66796 MICR OALBUMIN 03/10/2013 [id number] GF R CALC (RESULT ONLY) 03/10/2013 6851615 GF R CALC (RESULT ONLY) 03/10/2013 04602 A1C (IN-HOUSE) 07/03/2013 91621 A1C (IN-HOUSE) 10/17/2013 76296 A1C (IN-HOUSE) 01/22/2014 86112 ROUT INE VENIPUNCTURE 04/27/2014 40183 PORT FLUSH 04/27/2014 25306 A1C (IN-HOUSE) 04/27/2014 81498 CBC 04/27/2014 59669 TSH 04/27/2014 01897 CMP 04/27/2014 69799 LIPI D PANEL 04/27/2014 [id number] GF R CALC (RESULT ONLY) 04/27/2014 42433 INFL UENZA A & B (IN-HOUSE) 06/02/2014 92230 XRAY CHEST 2 VIEW 09/07/2014 96395 TB T EST INTRADERMAL 09/07/2014 51617 ROUT INE VENIPUNCTURE 09/07/2014 38165 CBC 09/07/2014 [id number] GF R CALC (RESULT ONLY) 09/07/2014 39785 CMP 09/07/2014 55684 HEPA TITIS PROFILE 09/07/2014 Results Test Result Range Complete blood count (CBC) with automate d white blood cell (WBC) differential - 02/07/16 09:10 Blood leukocytes automated count (number/volume) 3.2 10*3/uL 4.3-11.0 Blood erythrocytes automated count (number/volume) 4.00 10*6/uL 4.35-5.85 Venous blood hemoglobin measurement (mass/volume) 12.4 g/dL 13.3-17.7 Blood hematocrit (volume fraction) 37 % 40-54 Automated erythrocyte mean corpuscular volume 92 [ foz_us] 80-99 Automated erythrocyte mean corpuscular h emoglobin (mass per erythrocyte) 31 pg 25-34 Automated erythrocyte mean corpuscular h emoglobin concentration measurement (mass/volume) 34 g/dL 32-36 Automated erythrocyte distribution width ratio 12. 8 % 10.0- 14.5 Automated blood platelet count (count/volume) 229 10*3/uL [...] 10*3 1.0-4.0 Blood monocytes automated count (number/volume) 0. 4 10*3 0.0-1.0 Automated eosinophil count 0.2 10*3/uL 0 .0-0.3 Automated blood basophil count (count/volume) 0.0 10*3/uL 0.0-0.1 Whole blood basic metabolic panel - 02/13 09:10 Serum or plasma sodium measurement (moles/volume) 137 mmol/L 135-145 Serum or plasma potassium measurement (moles/volume) 4.6 mmol/L 3.6-5.0 Serum or plasma chloride measurement (moles/volume) 102 mmol/L 98-107 Carbon dioxide 22 mmol/L 21-32 Serum or plasma anion gap determination (moles/volume) 13 mmol/L 5-14 Serum or plasma urea nitrogen measurement (mass/volume ) 14 mg/dL 7-18 Serum or plasma creatinine measurement (mass/volume) 0.88 mg/dL 0.60-1.30 Serum or plasma urea nitrogen/creatinine mass ratio 16 NRG Serum or plasma creatinine measurement w ith calculation of estimated glomerular filtration rate > NRG Serum or plasma glucose measurement (mass/volume) 222 mg/dL 70-105 Serum or plasma calcium measurement (mass/volume) 9.3 mg/dL 8.5-10.1 Serum or plasma creatine kinase measurem ent (enzymatic activity/volume) - 02/07/16 09:10 Serum or plasma creatine kinase measurem ent (enzymatic activity/volume) 328 U/L 30-200 Serum or plasma C reactive protein measu rement (mass/volume) - 02/07/16 09:10 Serum or plasma C reactive protein measurement (mass/v olume) 0.24 mg/dL 0.00-0.50 Erythrocyte sedimentation rate by nitin gren method - 02/07/16 09:10 Erythrocyte sedimentation rate by westergren method 46 mm 0- 30 Automated blood complete blood count (he mogram) panel - 02/14/16 09:30 Blood leukocytes automated count (number/volume) 3.6 10*3/uL 4.3-11.0 Blood erythrocytes automated count (number/volume) 3.69 10*6/uL 4.35-5.85 Venous blood hemoglobin measurement (mass/volume) 11.5 g/dL 13.3-17.7 Blood hematocrit (volume fraction) 34 % 40-54 Automated erythrocyte mean corpuscular volume 93 [ foz_us] 80-99 Automated erythrocyte mean corpuscular h emoglobin (mass per erythrocyte) 31 pg 25-34 Automated erythrocyte mean corpuscular h emoglobin concentration measurement (mass/volume) 33 g/dL 32-36 Automated erythrocyte distribution width ratio 13. 1 % 10.0- 14.5 Automated blood platelet count (count/volume) 203 10*3/uL 130-400 Automated blood platelet mean volume measurement 9.7 [foz_us] 7.4-10.4 Whole blood basic metabolic panel - 01/29 11/13 09:30 Serum or plasma sodium measurement (moles/volume) 137 mmol/L 135-145 Serum or plasma potassium measurement (moles/volume) 4.6 mmol/L 3.6-5.0 Serum or plasma chloride measurement (moles/volume) 100 mmol/L 98-107 Carbon dioxide 26 mmol/L 21-32 Serum or plasma anion gap determination (moles/volume) 11 mmol/L 5-14 Serum or plasma urea nitrogen measurement (mass/volume ) 13 mg/dL 7-18 Serum or plasma creatinine measurement (mass/volume) 0.88 mg/dL 0.60-1.30 Serum or plasma urea nitrogen/creatinine mass ratio 15 NRG Serum or plasma creatinine measurement w ith calculation of estimated glomerular filtration rate > NRG Serum or plasma glucose measurement (mass/volume) 232 mg/dL 70-105 Serum or plasma calcium measurement (mass/volume) 9.6 mg/dL 8.5-10.1 Serum or plasma creatine kinase measurem ent (enzymatic activity/volume) - 02/14/16 09:30 Serum or plasma creatine kinase measurem ent (enzymatic activity/volume) 220 U/L 30-200 Serum or plasma C reactive protein measu rement (mass/volume) - 02/14/16 09:30 Serum or plasma C reactive protein measurement (mass/v olume) 0.70 mg/dL 0.00-0.50 Erythrocyte sedimentation rate by nitin gren method - 02/14/16 09:30 Erythrocyte sedimentation rate by westergren method 46 mm 0- 30 Automated blood complete blood count (he mogram) panel - 02/21/16 08:50 Blood leukocytes automated count (number/volume) 3.2 10*3/uL 4.3-11.0 Blood erythrocytes automated count (number/volume) 3.83 10*6/uL 4.35-5.85 Venous blood hemoglobin measurement (mass/volume) 11.9 g/dL 13.3-17.7 Blood hematocrit (volume fraction) 36 % 40-54 Automated erythrocyte mean corpuscular volume 93 [ foz_us] 80-99 Automated erythrocyte mean corpuscular h emoglobin (mass per erythrocyte) 31 pg 25-34 Automated erythrocyte mean corpuscular h emoglobin concentration measurement (mass/volume) 34 g/dL 32-36 Automated erythrocyte distribution width ratio 13. 3 % 10.0- 14.5 Automated blood platelet count (count/volume) 248 10*3/uL 130-400 Automated blood platelet mean volume measurement 9.7 [foz_us] 7.4-10.4 Whole blood basic metabolic panel - 01/30 08/13 08:50 Serum or plasma sodium measurement (moles/volume) 135 mmol/L 135-145 Serum or plasma potassium measurement (moles/volume) 4.5 mmol/L 3.6-5.0 Serum or plasma chloride measurement (moles/volume) 101 mmol/L 98-107 Carbon dioxide 21 mmol/L 21-32 Serum or plasma anion gap determination (moles/volume) 13 mmol/L 5-14 Serum or plasma urea nitrogen measurement (mass/volume ) 19 mg/dL 7-18 Serum or plasma creatinine measurement (mass/volume) 0.90 mg/dL 0.60-1.30 Serum or plasma urea nitrogen/creatinine mass ratio 21 NRG Serum or plasma creatinine measurement w ith calculation of estimated glomerular filtration rate > NRG Serum or plasma glucose measurement (mass/volume) 288 mg/dL 70-105 Serum or plasma calcium measurement (mass/volume) 9.1 mg/dL 8.5-10.1 Serum or plasma creatine kinase measurem ent (enzymatic activity/volume) - 02/21/16 08:50 Serum or plasma creatine kinase measurem ent (enzymatic activity/volume) 311 U/L 30-200 Serum or plasma C reactive protein measu rement (mass/volume) - 02/21/16 08:50 Serum or plasma C reactive protein measurement (mass/v olume) 0.31 mg/dL 0.00-0.50 Erythrocyte sedimentation rate by nitin gren method - 02/21/16 08:50 Erythrocyte sedimentation rate by westergren method 43 mm 0- 30 Automated blood complete blood count (he mogram) panel - 02/28/16 09:15 Blood leukocytes automated count (number/volume) 3.6 10*3/uL 4.3-11.0 Blood erythrocytes automated count (number/volume) 3.82 10*6/uL 4.35-5.85 Venous blood hemoglobin measurement (mass/volume) 11.9 g/dL 13.3-17.7 Blood hematocrit (volume fraction) 36 % 40-54 Automated erythrocyte mean corpuscular volume 93 [ foz_us] 80-99 Automated erythrocyte mean corpuscular h emoglobin (mass per erythrocyte) 31 pg 25-34 Automated erythrocyte mean corpuscular h emoglobin concentration measurement (mass/volume) 33 g/dL 32-36 Automated erythrocyte distribution width ratio 13. 5 % 10.0- 14.5 Automated blood platelet count (count/volume) 226 10*3/uL 130-400 Automated blood platelet mean volume measurement 9.6 [foz_us] 7.4-10.4 Whole blood basic metabolic panel - 01/31 09:15 Serum or plasma sodium measurement (moles/volume) 137 mmol/L 135-145 Serum or plasma potassium measurement (moles/volume) 4.4 mmol/L 3.6-5.0 Serum or plasma chloride measurement (moles/volume) 101 mmol/L 98-107 Carbon dioxide 24 mmol/L 21-32 Serum or plasma anion gap determination (moles/volume) 12 mmol/L 5-14 Serum or plasma urea nitrogen measurement (mass/volume ) 14 mg/dL 7-18 Serum or plasma creatinine measurement (mass/volume) 0.87 mg/dL 0.60-1.30 Serum or plasma urea nitrogen/creatinine mass ratio 16 NRG Serum or plasma creatinine measurement w ith calculation of estimated glomerular filtration rate > NRG Serum or plasma glucose measurement (mass/volume) 239 mg/dL 70-105 Serum or plasma calcium measurement (mass/volume) 9.3 mg/dL 8.5-10.1 Serum or plasma creatine kinase measurem ent (enzymatic activity/volume) - 02/28/16 09:15 Serum or plasma creatine kinase measurem ent (enzymatic activity/volume) 188 U/L 30-200 Serum or plasma C reactive protein measu rement (mass/volume) - 02/28/16 09:15 Serum or plasma C reactive protein measurement (mass/v olume) 0.33 mg/dL 0.00-0.50 Erythrocyte sedimentation rate by nitin gren method - 02/28/16 09:15 Erythrocyte sedimentation rate by westergren method 38 mm 0- 30 Automated blood complete blood count (he mogram) panel - 03/06/16 09:10 Blood leukocytes automated count (number/volume) 2.9 10*3/uL 4.3-11.0 Blood erythrocytes automated count (number/volume) 3.85 10*6/uL 4.35-5.85 Venous blood hemoglobin measurement (mass/volume) 12.0 g/dL 13.3-17.7 Blood hematocrit (volume fraction) 36 % 40-54 Automated erythrocyte mean corpuscular volume 94 [ foz_us] 80-99 Automated erythrocyte mean corpuscular h emoglobin (mass per erythrocyte) 31 pg 25-34 Automated erythrocyte mean corpuscular h emoglobin concentration measurement (mass/volume) 33 g/dL 32-36 Automated erythrocyte distribution width ratio 13. 3 % 10.0- 14.5 Automated blood platelet count (count/volume) 213 10*3/uL 130-400 Automated blood platelet mean volume measurement 9.8 [foz_us] 7.4-10.4 Whole blood basic metabolic panel - 12/13 09:10 Serum or plasma sodium measurement (moles/volume) 136 mmol/L 135-145 Serum or plasma potassium measurement (moles/volume) 4.8 mmol/L 3.6-5.0 Serum or plasma chloride measurement (moles/volume) 99 mmol/L 98-107 Carbon dioxide 21 mmol/L 21-32 Serum or plasma anion gap determination (moles/volume) 16 mmol/L 5-14 Serum or plasma urea nitrogen measurement (mass/volume ) 17 mg/dL 7-18 Serum or plasma creatinine measurement (mass/volume) 0.93 mg/dL 0.60-1.30 Serum or plasma urea nitrogen/creatinine mass ratio 18 NRG Serum or plasma creatinine measurement w ith calculation of estimated glomerular filtration rate > NRG Serum or plasma glucose measurement (mass/volume) 313 mg/dL 70-105 Serum or plasma calcium measurement (mass/volume) 9.3 mg/dL 8.5-10.1 Serum or plasma creatine kinase measurem ent (enzymatic activity/volume) - 03/06/16 09:10 Serum or plasma creatine kinase measurem ent (enzymatic activity/volume) 221 U/L 30-200 Serum or plasma C reactive protein measu rement (mass/volume) - 03/06/16 09:10 Serum or plasma C reactive protein measurement (mass/v olume) 0.33 mg/dL 0.00-0.50 Erythrocyte sedimentation rate by nitin gren method - 03/06/16 09:10 Erythrocyte sedimentation rate by westergren method 53 mm 0- 30 Automated blood complete blood count (he mogram) panel - 03/14/16 08:45 Blood leukocytes automated count (number/volume) 4.1 10*3/uL 4.3-11.0 Blood erythrocytes automated count (number/volume) 3.63 10*6/uL 4.35-5.85 Venous blood hemoglobin measurement (mass/volume) 11.3 g/dL 13.3-17.7 Blood hematocrit (volume fraction) 34 % 40-54 Automated erythrocyte mean corpuscular volume 95 [ foz_us] 80-99 Automated erythrocyte mean corpuscular h emoglobin (mass per erythrocyte) 31 pg 25-34 Automated erythrocyte mean corpuscular h emoglobin concentration measurement (mass/volume) 33 g/dL 32-36 Automated erythrocyte distribution width ratio 13. 3 % 10.0- 14.5 Automated blood platelet count (count/volume) 222 10*3/uL 130-400 Automated blood platelet mean volume measurement 10.0 [foz_us] 7.4-10.4 Whole blood basic metabolic panel - 02/28 10/13 08:45 Serum or plasma sodium measurement (moles/volume) 135 mmol/L 135-145 Serum or plasma potassium measurement (moles/volume) 4.7 mmol/L 3.6-5.0 Serum or plasma chloride measurement (moles/volume) 98 mmol/L 98-107 Carbon dioxide 27 mmol/L 21-32 Serum or plasma anion gap determination (moles/volume) 10 mmol/L 5-14 Serum or plasma urea nitrogen measurement (mass/volume ) 15 mg/dL 7-18 Serum or plasma creatinine measurement (mass/volume) 0.88 mg/dL 0.60-1.30 Serum or plasma urea nitrogen/creatinine mass ratio 17 NRG Serum or plasma creatinine measurement w ith calculation of estimated glomerular filtration rate > NRG Serum or plasma glucose measurement (mass/volume) 311 mg/dL 70-105 Serum or plasma calcium measurement (mass/volume) 9.2 mg/dL 8.5-10.1 Serum or plasma creatine kinase measurem ent (enzymatic activity/volume) - 03/14/16 08:45 Serum or plasma creatine kinase measurem ent (enzymatic activity/volume) 258 U/L 30-200 Serum or plasma C reactive protein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 [facility] UNSPECIFIED LOCAL INFEC TION OF SKIN [id number] 07/15/2015 09:36:00 016 23:59:59 CLS Outpatient ROHAN GARCÍA MD [facility] LAB PERIPHERALVASCULAR [id number] 06/12/2015 12:08:00 23:59:59 CLS Outpatient ROHAN GARCÍA MD [facility] RAD DIABETIV FOOT ULCER [id number] 05/03/2015 13:03:00 00:01:00 DIS Outpatient FERNY SILVERIO MD [facility] UNSPECIFIED LOCAL INFEC TION OF SKIN [id number] 05/03/2015 12:53:00 23:59:59 CLS Outpatient NICOLAS BRANDON PAC [facility] LAB MED MONITOR [id number] 04/11/2015 10:17:00 23:59:59 CLS Outpatient MAR REYEZ ROHAN Siu [facility] CARD T8 SIGNAL DISTURBANCE [id number] 01/23/2015 13:04:00 00:01:00 DIS Outpatient FERNY SILVERIO MD [facility] VASCULAR CATHETER [id number] 12/26/2014 13:05:00 00:01:00 DIS Outpatient FERNY SILVERIO MD [facility] VASCULAR CATHETER [id number] 07/17/2014 09:42:00 23:59:59 CLS Outpatient FERNY SILVERIO MD [facility] VASCULAR CATHETER [id number] 06/19/2014 08:16:00 015 00:01:00 DIS Outpatient FERNY SILVERIO MD [facility] [id number] 06/13/2014 12:31:00 16:13:00 DIS Emergency ABNER HAMILTON [facility] ER [id number] 02/21/2014 08:02:00 014 00:01:00 DIS Outpatient [id number] 02/04/2014 20:41:00 014 23:47:00 DIS Emergency DELL TINAJERO MD [facility] ER [id number] 11/22/2013 10:05:00 014 00:01:00 DIS Outpatient [id number] 07/31/2013 07:22:00 014 00:01:00 DIS Outpatient FERNY SILVERIO MD [facility] [id number] 04/04/2013 09:19:00 00:01:00 DIS Outpatient [id number] 01/04/2013 08:56:00 00:01:00 DIS Outpatient [id number] 09/29/2012 08:48:00 00:01:00 DIS Outpatient [id number] 01/03/2020 07:27:[address] Outpatient MARIEL BACK DO [facility] [id number] 03/18/2015 12:08:00 Document Registration [id number] 11/01/2014 10:47:00 Document Registration [id number] 11/01/2014 10:47:00 Document Registration [id number] 08/06/2014 21:10:00 Document Registration
[2020-01-03] MEDS ORDERED: LIDOCAINE PF 2% 5 ML (XYLOCAINE) VIAL ONE (08:30)
[2020-01-03] MEDS ORDERED: SEVOFLURANE (ULTANE) 15 ML INHAL SOLN ONE (08:30)
[2020-01-03] MEDS ORDERED: proPOfol 200 MG/20 ML (DIPRIVAN) VIAL IV ONE (08:30)
[2020-01-03] MEDS ORDERED: ONDANSETRON 4 MG/2 ML (SDV) Z0FRAN ONE (08:30)
[2020-01-03] MEDS ORDERED: MIDAZOLAM 2 MG/2 ML (VERSED) VIAL ONE (08:30)
[2020-01-03] MEDS ORDERED: fentaNYL INJECTION 100 MCG/2 ML AMP ONE (08:31)
[2020-01-03] MEDS ORDERED: LACTATED RINGERS 1,000 ML IV PRN (08:35)
[2020-01-03] MEDS ORDERED: BUP/EPI 0.5% 1:200,000 (MARCAINE) 10ML VIAL IJ ONE (08:43)
[2020-01-03] MEDS ORDERED: ceFAZolin INJECTION 1,000 MG in WATER (STERILE) FOR INJECTION 10 ML IV ONE (08:45)
[2020-01-03] MEDS ORDERED: CATHETER FLUSH 10 ML SYR IV PRN (09:00)
[2020-01-03] MEDS ORDERED: PROPOFOL INJECTION 50 ML IV ONE (09:37)
--- NOTE | 2020-01-03 10:06 | Progress Note-Post Operative ---
Post-Operative Progess Note Surgeon (s)/Card Grinder (s) Surgeon MARIEL BACK DO Card Grinder: ROCHELLE Chavira Pre-Operative Diagnosis Right 3rd toe Osteomyelitis Post-Operative Diagnosis same Procedure & Operative Findings Date of Procedure 01/03/20 Procedure Performed/Findings Amputation Right 3rd toe at metatarsal-phalangeal joint Anesthesia Type MAC Estimated Blood Loss Estimated blood loss (mL): scant Specimens/Packing Specimens Removed right 3rd toe MARIEL BACK DO Jan 03, 2020 10:06
--- NOTE | 2020-01-03 10:08 | Discharge Inst-Surgical ---
Discharge Inst-Surgical Depart Medication/Instructions New, Converted or Re-Newed RX: Other (pt has home meds) Patient Instructions Follow up Appt: Make appointment for 1 week. [phone] Instructions: No strenuous activity. May shower in 24 hours, no tub bath or soaking. Use incentive spirometer at home as directed. No Smoking Skin/Wound Care: May remove bandages in am. You need to leave the sutures in place and come in to the office to have them removed. Symptoms to Report: Appetite Changes, Extremity Discoloration, Numbness/Tingling, Swelling Increased, Bleeding Excessive, Eyesight Changes, Pain Increased, Urine Color Change, Constipation(Persistent), Fever over 101 degree F, Pain/Pressure in chest, Urinating Difficulty, Cough Up/Vomit Blood, Heart Beat Irreg/Pounding, Pain/Pressure in jaw, Cramps in feet or legs, Lightheadedness, Pain/Pressure in shoulder, Diarrhea(Persistent), Memory Changes Suddenly, Questions/Concerns, Weight gain consecutive days, Dizziness/Fainting, Nausea/Vomiting, Shortness of Breath, Weight gain over 2 pounds If questions or concerns contact your physician Or seek help at emergency department. Activity Activity as Tolerated: Yes Driving Instructions: No Driving/Refer to Dr. Hathaway Discharge Diet: ADA Diet Diet After 24 Hours: Clear Liquid if Nauseous If Any Problems/Questions/Issu: Contact Your Physician, Go to Emergency Room Skin/Wound Care Infection Signs and Symptoms: Increased Redness, Foul Odor of Wound, Increased Drainage, Skin Itchy or Has a Rash, Increased Swelling, Temperature Above 101 F Bathing Instructions: Shower Stitches/[place]/Dermabond Dis: Care of MARIEL Ponce DO Jan 03, 2020 10:08
--- NOTE | 2020-01-03 10:18 | Anesthesia-General Post-Op ---
MAC Patient Condition Mental Status/LOC: Same as Preop Cardiovascular: Satisfactory Nausea/Vomiting: Absent Respiratory: Satisfactory Pain: Controlled Complications: Absent Post Op Complications Complications None Follow Up Care/Instructions Patient Instructions None needed. Anesthesiology Discharge Order Discharge Order Patient is doing well, no complaints, stable vital signs, no apparent adverse anesthesia problems. No complications reported per nursing. YASMINE MILLAN CRNA Jan 03, 2020 10:18
--- NOTE | 2020-01-03 11:50 | NUR ---
PORT WAS USED FOR PROCEDURE TODAY. AT TIME OF DISCHARGE PORT WAS FLUSHED WITH 20CC OF NORMAL SALINE. PATIENT WAS SCHEDULED TO COME ON 01/08/20 FOR PORT FLUSH. PATIENT RESCHEDULED FOR 02/02/20.
--- NOTE | 2020-01-04 03:43 | OPERATIVE REPORT ---
DATE OF SERVICE: 01/03/2020 PREOPERATIVE DIAGNOSIS: Right third toe osteomyelitis. POSTOPERATIVE DIAGNOSIS: Right third toe osteomyelitis. PROCEDURE: Amputation of right third toe at the metatarsophalangeal joint. SURGEON: Jayson Juarse DO WELL LOGGER: HENRIQUE Chavira ANESTHESIA: MAC with local block. SPECIMEN: Right third toe. BLOOD LOSS: Scant. FLUIDS: Per anesthesia. POSTOPERATIVE CONDITION: Stable. INDICATION FOR PROCEDURE: The patient is a 59-year-old male who has osteomyelitis diagnosed of his right third toe. Unfortunately, he has already lost the first 2 toes this foot and now needed a third one removed. FINDINGS: The patient had a toe removed and sent to pathology. PROCEDURE NOTE: After informed consent was obtained, the patient was brought to the operating room, placed on the operating table in supine position. He was sterilely prepped and draped in normal fashion, performed a forefoot block using approximately 7 mL of local lidocaine on either side to go towards the malleolus and then across the top and then as well using more local lidocaine to perform a digital block on the third digit. At this point, then using #15 blade to cut around the skin in a circular area and then actually had to go down in the vertical incision with #15 blade towards the foot to help remove this, went through in skin down into the subcutaneous tissue, then deepened down to subcutaneous tissue with Bovie electrocautery, then going around the muscle and dissecting down using rakes to hold the incision open and then able to take the third toe off at the metatarsophalangeal joint. This was then passed off the table. Copiously irrigated with normal saline. Hemostasis obtained using Bovie electrocautery, then elected to close the incision with 3-0 Prolene four interrupted vertical mattress sutures and one simple suture this closed nicely. The area was then cleaned and dried, dressing placed. The patient tolerated the procedure. He was transferred to recovery room in stable condition. Sponge, instrument and needle count correct at the end of the case. Job ID: [id number] DocumentID: [id number] Dictated Date: 01/03/2020 16:39:19 Lead Section Supervisor Date: 01/04/2020 03:42:58 Dictated By: JAYSON JUARES DO
== END 2020-01-03 11:50 | disposition home or self-care (01) ==
LOC: SDC 07:27
PROVIDERS: ATTEND Surgery
DX: M86.9 Osteomyelitis, unspecified (principal); I10 Essential (primary) hypertension; J44.9 Chronic obstructive pulmonary disease, unspecified; E11.69 Type 2 diabetes mellitus with other specified complication; M06.9 Rheumatoid arthritis, unspecified; F41.9 Anxiety disorder, unspecified; F32.9 Major depressive disorder, single episode, unspecified; E78.5 Hyperlipidemia, unspecified; E66.9 Obesity, unspecified; Z68.35 Body mass index [BMI] 35.0-35.9, adult; Z79.82 Long term (current) use of aspirin; Z79.84 Long term (current) use of oral hypoglycemic drugs; Z79.899 Other long term (current) drug therapy; Z87.891 Personal history of nicotine dependence; Z80.42 Family history of malignant neoplasm of prostate
CPT/HCPCS: 87081

== ENCOUNTER 2020-02-02 12:58 | Outpatient (RCR) | payer MEDICARE ==
[2019-11-06 13:00] VITALS: BP 154/82
[2019-12-05 13:20] VITALS: BP 166/75
[~2020-02-02] VITALS: Ht 185.5 cm; Wt 116800.0 kg
[2020-02-02 13:30] VITALS: BP 128/66
== END 2020-02-04 | disposition home or self-care (01) ==
LOC: SDC 12:58
PROVIDERS: ATTEND Internal Medicine
DX: Z45.2 Encounter for adjustment and management of vascular access device (principal)
CPT/HCPCS: 96523

== ENCOUNTER 2020-02-04 22:56 | Emergency (ER) | payer MEDICARE ==
[~2020-02-04] VITALS: Ht 185 cm; Wt 120.0 kg
[2020-02-04] MEDS ORDERED: LACTATED RINGERS 1,000 ML IV ONE (23:19)
[2020-02-04] MEDS ORDERED: NS IV 1000 ML 1,000 ML IV SCH (23:19)
[2020-02-04 23:32] LABS: BASOPHILS % (AUTO) 0 % (0-10); EOSINOPHILS # (AUTO) 0.1 10^3/uL (0.0-0.3); EOSINOPHILS % (AUTO) 1 % (0-10); HEMATOCRIT 39 % (40-54); HEMOGLOBIN 12.6 G/DL (13.3-17.7); LYMPHOCYTES # (AUTO) 2.1 X 10^3 (1.0-4.0); LYMPHOCYTES % (AUTO) 20 % (12-44); MEAN CORPUSCULAR HEMOGLOBIN 31 PG (25-34); MEAN CORPUSCULAR HGB CONC 32 G/DL (32-36); MEAN CORPUSCULAR VOLUME 96 FL (80-99); MEAN PLATELET VOLUME 10.1 FL (7.4-10.4); MONOCYTES % (AUTO) 9 % (0-12); NEUTROPHILS # (AUTO) 7.7 X 10^3 (1.8-7.8); NEUTROPHILS % (AUTO) 70 % (42-75); PLATELET COUNT 339 10^3/uL (130-400)
[2020-02-04 23:42] LABS: INR 1.1 (0.8-1.4); PROTHROMBIN TIME PATIENT 14.5 SEC (12.2-14.7)
[2020-02-04 23:44] LABS: ABG BASE EXCESS -0.1 MMOL/L (-2.5-2.5); ABG OXYGEN SATURATION 95 % (94-100); ABG PCO2 67 MMHG (35-45); ABG PO2 96 MMHG (79-93); ABG TCO2 28.8 MMOL/L (21.0-31.0)
[2020-02-04 23:45] LABS: ALLENS TEST YES-POS; INSPIRED O2 3L NC; PATIENT TEMP 37.2; VENTILATOR NO
[2020-02-04 23:48] LABS: ABG PH 7.22 (7.37-7.43)
[2020-02-04 23:48] LABS: ALBUMIN 4.5 GM/DL (3.2-4.5); CHLORIDE 94 MMOL/L (98-107); SODIUM 136 MMOL/L (135-145)
[2020-02-04 23:49] LABS: AMYLASE 43 U/L (25-125); CALCIUM 8.8 MG/DL (8.5-10.1)
[2020-02-04 23:50] LABS: GLUCOSE 189 MG/DL (70-105); TOTAL PROTEIN 9.2 GM/DL (6.4-8.2)
[2020-02-04 23:51] LABS: CARBON DIOXIDE 22 MMOL/L (21-32)
[2020-02-04 23:52] LABS: BILIRUBIN,TOTAL 0.5 MG/DL (0.1-1.0)
[2020-02-04] MEDS ORDERED: NOREPINEPHRINE 4 MG/250 ML 250 ML IV ONE (23:53)
--- NOTE | 2020-02-04 23:53 | ED General ---
General Stated Complaint: DIZZY,ABD PAIN, UTI Source of Information: Patient (SOMEWHAT LIMITED HISTORIAN) History of Present Illness Date Seen by Provider: Feb 05, 2020 Time Seen by Provider: 23:05 Initial Comments PT ARRIVES VIA POV FROM HOME C/O LEFT MID AND LLQ PAIN SINCE THIS AFTERNOON NO NAUSEA/VOMITING/DIARRHEA--LAST BM WAS 2 DAYS AGO HAS BEEN EATING AND DRINKING NORMALLY TODAY STATES HE HAS BEEN IN [place] ALL DAY TODAY AT [employer], CAME HOME AND THEN CAME HERE ATE BREAKFAST, HAD [employer] AND [employer] FOR LUNCH, [employer] S[employer] FOR DINNER--ATE INSIDE ALL [employer]. HAS BEEN DRINKING [place]ATOR[place] "ALL DAY" STATES HE ONLY VOIDED ONCE THIS MORNING AND NONE SINCE THEN C/O FEELING WEAK NO FEVER/SWEATS OR CHILLS HAS COPD, BUT NO SHORTNESS OF BREATH, HAS SLIGHT COUGH WHICH IS NORMAL FOR HIM--WEARS O2 AT 2L/NC CONTINUOUSLY NO CHEST PAIN NO PALPITATIONS NO SWELLING PT HAD RIGHT 3RD TOE AMPUTATED 01/03/20 FOR OSTEOMYELITIS--STILL HAS SUTURES IN PLACE AND DRESSING IN PLACE HAS HAD PRIOR AMPUTATIONS OF RIGHT FIRST AND SECOND TOES WELL. PT IS INSULIN DEPENDENT DIABETIC--STATES HIS BLOOD SUGAR WAS IN THE 300'S PRIOR TO ARRIVAL, BUT ALSO TOOK HIS NORMAL DOSE OF INSULIN JUST PRIOR TO ARRIVAL. PCP: DR. SILVERIO AT [facility] STATES HE DOES NOT SEE ANY SPECIALISTS Allergies and Home Medications Allergies Coded Allergies: No Known Drug Allergies (Unverified , 12/27/19) Home Medications Alprazolam 2 Mg Tablet, 1 MG PO BID, (Reported) Amlodipine Besylate 10 Mg Tablet, 10 MG PO DAILY, (Reported) Atorvastatin Calcium 40 Mg Tablet, 40 MG PO HS, (Reported) Carisoprodol 350 Mg Tablet, 350 MG PO DAILY, (Reported) Celecoxib 200 Mg Capsule, 200 MG PO DAILY, (Reported) Citalopram Hydrobromide 40 Mg Tablet, 40 MG PO DAILY, (Reported) Cyclobenzaprine HCl 7.5 Mg Tablet, 7.5 MG PO TID, (Reported) Duloxetine HCl 60 Mg Capsule.dr, 60 MG PO DAILY, (Reported) Gemfibrozil 600 Mg Tablet, 600 MG PO DAILY, (Reported) Hydrocodone Bit/Acetaminophen 1 Ea Tab, 1 EA PO Q6H PRN for PAIN-MODERATE (5-7), (Reported) Insulin Degludec 200 Unit/1 Ml Insuln.pen, 200 UNIT SQ HS, (Reported) Insulin Lispro 100 Unit/1 Ml Insuln.pen, 30 ML SQ TIDAC, (Reported) Metformin HCl 1,000 Mg Tablet, 1,000 MG PO BID, (Reported) Mirtazapine 30 Mg Tablet, 30 MG PO HS, (Reported) Morphine Sulfate 15 Mg Tablet.er, 15 MG PO Q8H, (Reported) Pregabalin 225 Mg Capsule, 225 MG PO BID, (Reported) Sulfamethoxazole/Trimethoprim 1 Each Tablet, 1 EACH PO BID, (Reported) Patient Home Medication List Home Medication List Reviewed: Yes Review of Systems Review of Systems Constitutional: see HPI; No chills, No diaphoresis, No dizziness, No fever; m alaise, weakness EENTM: no symptoms reported; No ear pain, No nose congestion, No throat pain Respiratory: see HPI Cardiovascular: no symptoms reported; No chest pain, No edema, No palpitations, No syncope Gastrointestinal: see HPI, abdominal pain; No constipation, No diarrhea, No loss of appetite, No nausea, No vomiting Genitourinary: see HPI, decreased output Musculoskeletal: other (HAS CHRONIC GENERALIZED PAIN--ON MS CONTIN --NO CHANGE IN CHRONIC PAIN ) Skin: other (HAS EXTENSIVE PSORIASIS OVER ENTIRE BODY; SURGICAL WOUND TO R FOOT ) Psychiatric/Neurological: No Symptoms Reported; Denies Headache; Pre-Existing Deficit (PERIPHERAL NEUROPATHY) Hematologic/Lymphatic: No Symptoms Reported Immunological/Allergic: no symptoms reported Past Utdktzp-Kbqkgv-Tczndq Hx Past Med/Social Hx: Reviewed and Corrections made Patient Social History Alcohol Use: Denies Use Recreational Drug Use: Yes Drug of Choice: cannibus oil Smoking Status: Current Everyday Smoker (SMOKED 2 PPD, NOW VAPES) Type Used: Cigarettes, Electronic/Vapor 2nd Hand Smoke Exposure: Yes Recent Foreign Travel: No Contact w/Someone Who Travel: No Recent Hopitalizations: No Immunizations Up To Date Tetanus Booster (TDap): Unknown Date of Pneumonia Vaccine: Aug 03, 2011 Date of Influenza Vaccine: Mar 06, 2019 Seasonal Allergies Seasonal Allergies: Yes Past Medical History Surgeries: Yes (BACK, KNEE, SHOULDER, RT FOOT OSTEOMYELITIS REMOVAL, LPJ- KIDNEY) Amputation, Orthopedic, Renal Respiratory: Yes (O2 2L @ NIGHT AND PRN) COPD Currently Using CPAP: No Currently Using BIPAP: No Cardiac: Yes High Cholesterol, Hypertension Neurological: Yes Neuropathy Reproductive Disorders: No Sexually Transmitted Disease: No Genitourinary: Yes (KINDEY SURGERY) Kidney Stones Gastrointestinal: No Musculoskeletal: Yes (OSTEOMYELITIS RT FOOT/TOES AMPUTATED; PSORIATIC ARTHRITIS;GEN PAIN ) Degenerate Disk Disease, Arthritis, Back Injury, Chronic Back Pain Endocrine: Yes Diabetes, Insulin dep HEENT: No (GLASSES) Loss of Vision: Denies Hearing Impairment: Denies Cancer: No Psychosocial: Yes Sleep Difficulties, Anxiety Integumentary: Yes Eczema, Psoriasis Blood Disorders: No Adverse Reaction/Blood Tranf: No (N/A) Family Medical History PMH: -07/2011--HAD RESPIRATORY AND RENAL FAILURE--WAS ON VENTILATOR FOR 4 DAYS PSH: -PORT LEFT CHEST -AMPUTATION RIGHT TOES 1 AND 2 IN THE PAST, HAD RIGHT 3RD TOE AMPUTATION 01/03/20 -LUMBAR SURGERY WITH HARDWARE -RIGHT SHOULDER SURGERY -KNEE SURGERY -KIDNEY SURGERY Physical Exam Vital Signs Vital Signs - First Documented 02/04/20 02/04/20 23:04 23:05 Temp 37.2 Pulse 92 Resp 24 B/P (MAP) 77/54 (62) Pulse Ox 77 O2 Delivery Room Air O2 Flow Rate 4.00 Capillary Refill : Height, Weight, BMI Height: 6'1.00" Weight: 264lbs. 0.0oz. 119.107396vi; 35.44 BMI Method:Stated General Appearance: No Apparent Distress, Other (MILDLY LETHARGIC; PT DIRTY, SOCK ON RIGHT FOOT IS FILTHY AND COMPLETLY BLACK ON THE SOLE--NOT WEARING ANY KIND OF SHOE ON RIGHT FOOT. MALODOROUS. ) HEENT: PERRL/EOMI Neck: Normal Inspection Respiratory: Normal Breath Sounds (BUT DIMINISHED IN BASES), No Accessory Muscle Use, No Respiratory Distress; No Rales, No Rhonci, No Wheezing Cardiovascular: Regular Rate, Rhythm, No Edema, No JVD, No Murmur, Normal Peripheral Pulses Gastrointestinal: Normal Bowel Sounds, No Organomegaly, No Pulsatile Mass, Soft, Tenderness (MILD LEFT LOWER ABDOMINAL TENDERNESS) Back: No CVA Tenderness Extremity: Normal Range of Motion, Other (LEFT FOOT NORMAL. RIGHT FOOT WITH DRESSING IN PLACE--SCANT AMOUNT OF SEROSANGUINOUS DRAINAGE ON DRESSING. AMPUTATION SITE RIGHT 3RD TOE AREA WITH SUTURES IN PLACE, MODERATE AMOUNT OF ERYTHEMA, WARMTH AND MILD TO MODERATE SWELLING OF DISTAL FOOT. NO FLUCTUANCE. NO STREAKS. NO ANKLE OR LOWER LEG SWELLING. ) Neurologic/Psychiatric: Alert, Oriented x3, criminology teacher II-XII Norm as Tested; No Motor Weakness; Other (DECREASED SENSATION TO FEET) Skin: Normal Color, Warm/Dry, Other (RIGHT FOOT NOTED ABOVE. PT WITH EXTENSIVE PLAQUE PSORIASIS OVER ENTIRE BODY, INCLUDING FACE. KNEES WITH MACERATION AND SCABBING OF PLAQUES, SOME AREAS OF BLEEDING TO KNEES AND SHINS. ) Focused Exam Lactate Level Lactic Acid Level Progress/Results/Core Measures Suspected Sepsis SIRS Temperature: Pulse: Respiratory Rate: Blood Pressure / Mean: Results/Orders Lab Results My Orders Medications Given in ED Vital Signs/I&O Capillary Refill : Progress Note : Progress Note INITIAL O2 SAT 77% ON ROOM AIR--PLACED ON O2 AT 3L/NC UP TO 93% PLACED ON BIPAP WITH O2 SATS UP TO 95-96% ADJUSTMENTS MADE TO BIPAP SETTINGS BASED ON ABG RESULTS INITIAL BP IN 70'S/40'S--GIVEN 3 LITERS OF FLUIDS, AND PLACED ON LEVOPHED DRIP--BP UP TO > 100 SYSTOLIC LESS THAN 100 ML URINE OUTPUT GIVEN GLUCOSE, INSULIN, CALCIUM GLUCONATE, KAYEXELATE RECTALLY, HOUR LONG ALBUTEROL NEB TREATMENT REPEAT POTASSIUM LEVEL IS IMPROVED GIVEN ZOSYN + VANCOMYCIN PT PLACED IN ISOLATION ROOM PPE WORN AT ALL TIMES COVID-19 TESTING PERFORMED, WITH RAPID TEST BEING NEGATIVE. SENT OUT SPECIMEN FOR PCR TEST ECG Initial ECG Impression Date: Feb 04, 2020 Initial ECG Impression Time: 23:26 Initial ECG Rate: 85 Initial ECG Rhythm: Normal Sinus Initial ECG Comparisson: No Previous ECG Available Diagnostic Imaging Comments CXR--VERY POOR INSPIRATION, BIBASILAR ATELECTASIS/INFILTRATES, PENDING RADIOLOGIST REVIEW CT ABDOMEN/PELVIS--NO ACUTE FINDINGS PER [facility] VIA FAX AT [address]150 CT CHEST--NO ACUTE FINDINGS--PER [facility] VIA FAX AT 0437 Reviewed: Reviewed by Me Critical Care Note Critical Care Total Time (minutes) 45 MINUTES Departure Communication (Admissions) 0015--CALLED [facility], ON DIVERSION 0017--CALLED [facility]--BOTH [place] [facility] ON DIVERSION 0021--CALLED [facility], HAVE BEDS, WILL CALL THEM BACK WHEN CT RESULTS ARE BACK 0152--CALLED [facility], WILL [facility] AND GYNECOLOGY PROFESSOR AND CALL BACK 022--SPOKE WITH [facility] OBSTETRICS AND GYNECOLOGY PROFESSOR, DR. JOSR [place], ACCEPTS PT FOR ADMIT. ADVISES TO GIVE BICARB AND REPEAT LAB TO CHECK POTASSIUM. [facility] CONTACTED FOR TRANSPORT 349--[facility] IS HERE AND HAS LOADED PT ONTO THEIR CART AND THEN AT THAT POINT DISCOVER THAT THEIR EQUIPMENT IS NOT COMPATIBLE WITH BIPAP, THEY HAVE OPTED TO INTUBATE THE PT Impression Primary Impression: Septic shock Additional Impressions: Acute on chronic respiratory failure Acute renal failure OSTEOMYELITIS RIGHT FOOT WITH RECENT 3RD TOE AMPUTATION Cellulitis of right foot IDDM (insulin dependent diabetes mellitus) Hyperkalemia MIXED ACIDOSIS Disposition: XFER SHT-TRM HOSP Condition: Stable Transfer Transfer Reason: Exceeds level of care Transfer [facility] [place] [place] Method of Transfer: Air Departure-Patient Inst. Referrals: FERNY SILVERIO MD (PCP/Family) Primary Care Physician GERALD BOWLING DO Feb 04, 2020 23:53
[2020-02-04 23:54] LABS: ALKALINE PHOSPHATASE 90 U/L (40-136); CREATININE SERUM 6.57 MG/DL (0.60-1.30); GFR ESTIMATED 9; POTASSIUM 6.9 MMOL/L (3.6-5.0)
[2020-02-04 23:55] LABS: BUN/CREATININE RATIO 9
[2020-02-04 23:57] LABS: ALANINE AMINOTRANSFERASE 26 U/L (0-55); MAGNESIUM 2.1 MG/DL (1.6-2.4)
[2020-02-04 23:58] LABS: CREATINE KINASE 2749 U/L (30-200); LIPASE 39 U/L (8-78)
[2020-02-05] MEDS ORDERED: NOREPINEPHRINE 4 MG/250 ML 250 ML IV SCH
[2020-02-05] MEDS ORDERED: RT-ALBUTEROL SULF 2.5 MG/3 ML PRE-MIX VIAL INH STA (00:06)
[2020-02-05 00:11] LABS: BILIRUBIN,URINE 1+ (NEGATIVE); CLARITY,URINE CLEAR; COLOR,URINE YELLOW; GLUCOSE, URINE (UA) TRACE (NEGATIVE); KETONES,URINE NEGATIVE (NEGATIVE); LEUKOCYTE ESTERASE ,URINE NEGATIVE (NEGATIVE); NITRITE,URINE NEGATIVE (NEGATIVE); PROTEIN,URINE 2+ (NEGATIVE)
[2020-02-05] MEDS ORDERED: CALCIUM GLUC. 10% 4.65 MEQ/10 ML VIAL ONE (00:15)
[2020-02-05] MEDS ORDERED: inSUlin (REGULAR) HUMAN 1 UNIT/0.01 ML (CHARGE PER UNIT) IV ONE (00:15)
[2020-02-05] MEDS ORDERED: DEXTROSE 50% 50 ML (IMS) SYR IV ONE (00:15)
[2020-02-05] MEDS ORDERED: NS (IVPB) 50 ML ONE (00:15)
[2020-02-05] MEDS ORDERED: CALCIUM GLUCONATE 10% INJ 4.65 MEQ in NS (IVPB) 50 ML IV ONE (00:15)
[2020-02-05] MEDS ORDERED: DEXTROSE 50% 50 ML (IMS) SYR ONE (00:15)
[2020-02-05] MEDS ORDERED: SOD POLYSTERENE 15 GM/60 ML (KAYEXALATE) UNIT DOSE ONE (00:16)
[2020-02-05] MEDS ORDERED: RT-ALBUTEROL SULF 2.5 MG/3 ML PRE-MIX VIAL ONE (00:17)
[2020-02-05] MEDS ORDERED: inSUlin (REGULAR) HUMAN 1 UNIT/0.01 ML (CHARGE PER UNIT) ONE (00:18)
[2020-02-05 00:23] LABS: BACTERIA,URINE TRACE /HPF
[2020-02-05 00:24] LABS: AMPHETAMINE SCREEN, URINE NEGATIVE (NEGATIVE); BARBITURATE SCREEN URINE NEGATIVE (NEGATIVE); BENZODIAZEPINES SCREEN URINE POSITIVE (NEGATIVE); CANNABINOID SCREEN, URINE NEGATIVE (NEGATIVE); COCAINE SCREEN URINE NEGATIVE (NEGATIVE); HYALINE CASTS, URINE 0-2 /LPF; METHADONE STAT NEGATIVE (NEGATIVE); METHAMPHETAMINE SCREEN URINE S NEGATIVE (NEGATIVE); OPIATE SCREEN URINE POSITIVE (NEGATIVE); OXYCODONE STAT NEGATIVE (NEGATIVE); PROPOXYPHENE STAT NEGATIVE (NEGATIVE); TRICYCLIC ANTIDEPRESSANTS SCRE POSITIVE (NEGATIVE)
[2020-02-05] MEDS: NOREPINEPHRINE 4 MG/250 ML 250 ML IV SCH ×2 (00:28→03:30)
[2020-02-05 00:29] LABS: CREATINE KINASE MB 10.6 NG/ML (<6.6)
[2020-02-05] MEDS ORDERED: NS IV 1000 ML 1,000 ML IV SCH ×2 (00:45→02:21)
[2020-02-05] MEDS ORDERED: DEXTROSE 50% INJ VIAL IV ONE (00:45)
[2020-02-05 01:15] LABS: ABG BASE EXCESS -1.9 MMOL/L (-2.5-2.5); ABG OXYGEN SATURATION 94 % (94-100); ABG PO2 96 MMHG (79-93); ABG TCO2 28.1 MMOL/L (21.0-31.0)
[2020-02-05 01:18] LABS: ALLENS TEST YES-POS
[2020-02-05 01:19] LABS: PATIENT TEMP 37.6; VENTILATOR NO
[2020-02-05 01:20] LABS: ABG PCO2 77 MMHG (35-45); ABG PH 7.15 (7.37-7.43)
[2020-02-05] MEDS ORDERED: PIPERACILLIN SODIUM/TAZOBACTAM 4.5 GM in NS (IVPB) 100 ML IV ONE (02:00)
[2020-02-05 02:27] LABS: ABG BASE EXCESS -2.5 MMOL/L (-2.5-2.5); ABG OXYGEN SATURATION 90 % (94-100); ABG PCO2 63 MMHG (35-45); ABG PO2 75 MMHG (79-93); ABG TCO2 26.5 MMOL/L (21.0-31.0)
[2020-02-05 02:30] LABS: ALLENS TEST YES-POS; PATIENT TEMP 36.2; VENTILATOR NO
[2020-02-05 02:31] LABS: ABG PH 7.21 (7.37-7.43)
[2020-02-05] MEDS: VANCOMYCIN INJECTION 1,000 MG in NS (IVPB) 250 ML IV SCH ×2 (02:34→03:31)
[2020-02-05] MEDS ORDERED: SODIUM BICARB 8.4% 50 MEQ/50 ML VIAL IV ONE (02:45)
[2020-02-05] MEDS: SOD POLYSTYRENE 30 GM/120 ML (KAYEXALATE) BULK BOTTLE PR ONE ×2 (02:47→03:12)
[2020-02-05 03:08] LABS: POTASSIUM 4.3 MMOL/L (3.6-5.0)
[2020-02-05 03:09] LABS: CALCIUM 7.1 MG/DL (8.5-10.1)
[2020-02-05 03:13] LABS: CREATININE SERUM 5.33 MG/DL (0.60-1.30)
--- NOTE | 2020-02-05 03:15 | NUR ---
[facility] HERE AT THIS TIME AND REPORT GIVEN.
--- NOTE | 2020-02-05 03:30 | NUR ---
PT REMOVED FROM ER MONITORS AND PLACED ON [facility] MONTIORS AND MOVED TO THEIR CART FOR TRANSPORT.
--- NOTE | 2020-02-05 04:00 | NUR ---
DR. BOWLING AWARE OF ALL SBP <90 AND SUBSEQUENT ORDERS FOR IVF AND LEVOPHED GTTT
[2020-02-05 04:15] VITALS: BP 107/54
--- NOTE | 2020-02-05 04:15 | NUR ---
PT DC'D WITH ALL BELONGINGS INCLUDING CLOTHES, GLASSES, AND CELL PHONE TO CARE OF [facility] FOR TRANSFER TO [facility]. PRIOR TO DEPARTURE [facility] OPTED TO INTUBATE PT R/T EQUIPMENT ISSUE AND NOT BEING ABLE TO PROVIDE BIPAP (WHICH PT IS CURRENTLY ON) EN ROUTE. PT WAS GIVEN 100 MG ROCURONIUM, 100 MG KETAMINE AND INTUBATED WITH 7.5 ETT RESIDING AT 20CM AT THE TEETH.
--- NOTE | 2020-02-05 05:55 | NUR ---
PT NOTIFIED OF PT DEPARTURE FROM ER AND CURRENT STATUS AND INTUBATION PRIOR TO LEAVING (LATE NOTIFICATION R/T ACUITY OF ER AT THE TIME, VERY UNDERSTANDING). DR. BOWLING PREVIOUSLY NOTIFIED OF PT STATUS AND PENDING TRANSFER TO [facility].
--- NOTE | 2020-02-05 07:21 | Diagnostic Imaging Report ---
INDICATION: Abdominal pain and dizziness with fever Comparison made with prior examination from 05/16/2018 FINDINGS: Heart size upper limits normal. There is mild venous congestion. There is patchy right basal infiltrate. There is no pleural effusion or pneumothorax. The mediastinum is unremarkable. IMPRESSION: Patchy right basal infiltrate. Mild central pulmonary venous congestion. Dictated by: Dictated on workstation # [id number]
--- NOTE | 2020-02-05 07:27 | Diagnostic Imaging Report ---
PROCEDURE: CT chest, abdomen, and pelvis without contrast. TECHNIQUE: Multiple contiguous axial images were obtained through the chest, abdomen, and pelvis without the use of intravenous contrast. Auto Exposure Controls were utilized during the CT exam to meet ALARA standards for radiation dose reduction. INDICATION: Abdominal pain. Dizziness and hypoxia. Correlation is made to the screening CT of the chest from 11/03/2018. FINDINGS: The lungs demonstrate a wedge-shaped region of pulmonary opacification in the dependent location within the lower lobes most compatible with dependent atelectasis. Lungs otherwise appear clear. There is no pleural collection. There is no pneumothorax. There is no suspicious pulmonary nodule or mass. There is a left internal jugular port. There are coronary calcifications. Thoracic aortic arch normal in caliber. The noncontrast appearance of the liver demonstrates no evidence of a focal abnormality. There does appear to be hepatomegaly. There is no evidence for radiodense gallstone or findings of biliary dilatation. The spleen is normal in size. The pancreas demonstrates no focal abnormality. There is no adrenal mass. There is a punctate nonobstructing calculus within the right kidney. There are no findings of hydronephrosis. The stomach is nondistended. The duodenal sweep appropriately positioned. There are no findings of bowel thickening. There is no bowel dilation to suggest obstruction. There is moderate stool throughout the colon. Urinary bladder decompressed by a Shepard catheter. There is no free air, free fluid, abscess or adenopathy. There are atherosclerotic calcifications within a normal caliber aorta. Patient is status post previous spinal fusion of L4-S1. There is a chronic fracture deformity of T12. No acute or suspicious osseous abnormality is demonstrated. IMPRESSION: 1. No noncontrast CT evidence of an acute inflammatory or obstructive process within the chest, abdomen or pelvis. 2. Other than dependent atelectasis, the lungs appear clear. There is no pleural collection. 3. Nonspecific hepatomegaly. 4. No bowel obstruction. 5. No findings of focal inflammation within the omentum or mesentery. There is no free fluid. 6. Nonobstructing right renal calculus. 7. Chronic T12 compression deformity with previous posterior lumbar interbody fusion of L4-S1. Dictated by: Dictated on workstation # [id number]
== END 2020-02-05 04:15 | disposition short-term general hospital (02) ==
LOC: EDUNIT# 22:56 → ER 22:57
DX: A41.9 Sepsis, unspecified organism (principal); R65.21 Severe sepsis with septic shock; J96.20 Acute and chronic respiratory failure, unspecified whether with hypoxia or hypercapnia; N17.9 Acute kidney failure, unspecified; M86.9 Osteomyelitis, unspecified; L03.115 Cellulitis of right lower limb; E11.40 Type 2 diabetes mellitus with diabetic neuropathy, unspecified; E87.5 Hyperkalemia; E87.4 Mixed disorder of acid-base balance; J44.9 Chronic obstructive pulmonary disease, unspecified; I10 Essential (primary) hypertension; E78.00 Pure hypercholesterolemia, unspecified; F41.9 Anxiety disorder, unspecified; G89.29 Other chronic pain; M54.9 Dorsalgia, unspecified; F17.210 Nicotine dependence, cigarettes, uncomplicated; F17.290 Nicotine dependence, other tobacco product, uncomplicated; Z79.891 Long term (current) use of opiate analgesic; Z99.81 Dependence on supplemental oxygen; Z89.421 Acquired absence of other right toe(s); Z79.4 Long term (current) use of insulin; Z20.828 Contact with and (suspected) exposure to other viral communicable diseases
CPT/HCPCS: 36600; 51702; 71045; 71250; 74176; 80048; 80053; 80306; 81000; 82010; 82150; 82550; 82553; 82805 ×2; 82962; 83605 ×2; 83615; 83690; 83735; 83874; 83880; 84145; 84484; 85025; 85610; 85652; 85730; 86141; 87040; 93041; 94640; 94660; 99291; 99292; U0002; 36415; 87635

== ENCOUNTER 2020-02-29 17:27 | Emergency (ER) | payer MEDICARE ==
[~2020-02-29] VITALS: Ht 185 cm; Wt 115.0 kg
--- NOTE | 2020-02-29 18:23 | ED Lower Extremity ---
General Chief Complaint: Orthopedic Problems Stated Complaint: POST SURGICAL INCISION PROBLEM Nursing Triage Note: PT STATES DR. BACK REMOVED HIS 3RD TOE RT FOOT AT THE END OF DECEMBER, CC OF IT BEING RED AND DRAINING FOR ABOUT A WEEK. Nursing Sepsis Screen: No Definite Risk Source: patient Exam Limitations: no limitations History of Present Illness Date Seen by Provider: Feb 29, 2020 Time Seen by Provider: 18:19 Initial Comments To ER with reports of a draining incision on his right foot. On February 04 he was flown from here to [facility] for kidney failure and infection of the right foot. He subsequently underwent right third toe amputation, the great toe and second toe have R even agitated. He is diabetic. Since being discharged home on the he's had some progressive erythema to the incision site with a bit of clear yellowish drainage. He otherwise feels fine without fevers chills shortness of breath or malaise. [facility] him to the emergency room. Onset: other Severity: moderate Pain/Injury Location: right foot Modifying Factors: Worse With Movement Allergies and Home Medications Allergies Coded Allergies: No Known Drug Allergies (Unverified , 12/27/19) Home Medications Alprazolam 2 Mg Tablet, 1 MG PO BID, (Reported) Amlodipine Besylate 10 Mg Tablet, 10 MG PO DAILY, (Reported) Atorvastatin Calcium 40 Mg Tablet, 40 MG PO HS, (Reported) Carisoprodol 350 Mg Tablet, 350 MG PO DAILY, (Reported) Celecoxib 200 Mg Capsule, 200 MG PO DAILY, (Reported) Citalopram Hydrobromide 40 Mg Tablet, 40 MG PO DAILY, (Reported) Cyclobenzaprine HCl 7.5 Mg Tablet, 7.5 MG PO TID, (Reported) Duloxetine HCl 60 Mg Capsule.dr, 60 MG PO DAILY, (Reported) Gemfibrozil 600 Mg Tablet, 600 MG PO DAILY, (Reported) Hydrocodone Bit/Acetaminophen 1 Ea Tab, 1 EA PO Q6H PRN for PAIN-MODERATE (5-7), (Reported) Insulin Degludec 200 Unit/1 Ml Insuln.pen, 200 UNIT SQ HS, (Reported) Insulin Lispro 100 Unit/1 Ml Insuln.pen, 30 ML SQ TIDAC, (Reported) Metformin HCl 1,000 Mg Tablet, 1,000 MG PO BID, (Reported) Mirtazapine 30 Mg Tablet, 30 MG PO HS, (Reported) Morphine Sulfate 15 Mg Tablet.er, 15 MG PO Q8H, (Reported) Pregabalin 225 Mg Capsule, 225 MG PO BID, (Reported) Sulfamethoxazole/Trimethoprim 1 Each Tablet, 1 EACH PO BID, (Reported) Patient Home Medication List Home Medication List Reviewed: Yes Review of Systems Constitutional: see HPI; No chills, No fever, No malaise, No weakness EENTM: see HPI Respiratory: no symptoms reported Cardiovascular: no symptoms reported Genitourinary: no symptoms reported Musculoskeletal: no symptoms reported Skin: see HPI Psychiatric/Neurological: No Symptoms Reported Past Detloee-Fznsgm-Dypief Hx Patient Social History Alcohol Use: Denies Use Recreational Drug Use: No Drug of Choice: cannibus oil Smoking Status: Former Smoker Type Used: Cigarettes, Electronic/Vapor Former Smoker, Quit: September 29, 2013 2nd Hand Smoke Exposure: Yes Recent Foreign Travel: No Contact w/Someone Who Travel: No Recent Infectious Disease Expo: No Recent Hopitalizations: Yes (02/05/20 FOR KIDNEY FAILURE) Physical Abuse: No Sexual Abuse: No Mistreated: No Fear: No Immunizations Up To Date Tetanus Booster (TDap): Unknown Date of Pneumonia Vaccine: Aug 03, 2011 Date of Influenza Vaccine: Mar 06, 2019 Seasonal Allergies Seasonal Allergies: Yes Past Medical History Surgeries: Yes (BACK, KNEE, SHOULDER, RT FOOT OSTEOMYELITIS REMOVAL, LPJ- KIDNEY) Amputation, Orthopedic, Renal Respiratory: Yes (O2 2L @ NIGHT AND PRN) COPD Currently Using CPAP: No Currently Using BIPAP: No Cardiac: Yes High Cholesterol, Hypertension Neurological: Yes Neuropathy Reproductive Disorders: No Sexually Transmitted Disease: No Genitourinary: Yes (KINDEY SURGERY) Kidney Stones, Renal Failure Gastrointestinal: No Musculoskeletal: Yes (OSTEOMYELITIS RT FOOT/TOES AMPUTATED; PSORIATIC A RTHRITIS;GEN PAIN ) Degenerate Disk Disease, Arthritis, Back Injury, Chronic Back Pain Endocrine: Yes Diabetes, Insulin dep HEENT: No (GLASSES) Loss of Vision: Denies Hearing Impairment: Denies Cancer: No Psychosocial: Yes Sleep Difficulties, Anxiety Integumentary: Yes Eczema, Psoriasis Blood Disorders: No Adverse Reaction/Blood Tranf: No (N/A) Physical Exam Vital Signs Vital Signs - First Documented 02/29/20 17:48 Temp 36.9 Pulse 84 Resp 20 B/P (MAP) 139/85 (103) Pulse Ox 94 O2 Delivery Room Air Capillary Refill : Less Than 3 Seconds Height, Weight, BMI Height: 6'1.00" Weight: 264lbs. 0.0oz. [id number]; 33.00 BMI Method:Stated General Appearance: WD/WN, no apparent distress Neck: non-tender, full range of motion Respiratory: no respiratory distress, no accessory muscle use Hips: bilateral hip non-tender, bilateral hip normal inspection, bilateral hip normal range of motion Legs: bilateral leg non-tender, bilateral leg normal inspection, bilateral leg normal range of motion Knees: bilateral knee non-tender, bilateral knee normal inspection, bilateral knee normal range of motion Ankles: bilateral ankle non-tender, bilateral ankle normal inspection, bilateral ankle normal range of motion Feet: right foot other (prior amputation of great toe second toe and third toe. There is a little bit of erythema around the incision of the third toe amputation site. There is some serous drainage which was cultured and sent to lab. The erythema is very localized.) Neurologic/Psychiatric: alert, normal mood/affect, oriented x 3 Skin: normal color, warm/dry Progress/Results/Core Measures Results/Orders Lab Results Laboratory Tests Test 02/29/20 18:30 Range/Units White Blood Count 4.6 4.3-11.0 10^3/uL Red Blood Count 3.93 L 4.30-5.52 10^6/uL Hemoglobin 12.1 L 13.3-17.7 g/dL Hematocrit 36 L 40-54 % Mean Corpuscular Volume 92 80-99 fL Mean Corpuscular Hemoglobin 31 25-34 pg Mean Corpuscular Hemoglobin Concent 33 32-36 g/dL Red Cell Distribution Width 12.5 10.0-14.5 % Platelet Count 270 130-400 10^3/uL Mean Platelet Volume 9.7 9.0-12.2 fL Immature Granulocyte % (Auto) 0 % Neutrophils (%) (Auto) 59 42-75 % Lymphocytes (%) (Auto) 28 12-44 % Monocytes (%) (Auto) 10 0-12 % Eosinophils (%) (Auto) 2 0-10 % Basophils (%) (Auto) 0 0-10 % Neutrophils # (Auto) 2.7 1.8-7.8 10^3/uL Lymphocytes # (Auto) 1.3 1.0-4.0 10^3/uL Monocytes # (Auto) 0.5 0.0-1.0 10^3/uL Eosinophils # (Auto) 0.1 0.0-0.3 10^3/uL Basophils # (Auto) 0.0 0.0-0.1 10^3/uL Immature Granulocyte # (Auto) 0.0 0.0-0.1 10^3/uL Erythrocyte Sedimentation Rate 46 H 0-30 MM/HR Sodium Level 134 L 135-145 MMOL/L Potassium Level 5.0 3.6-5.0 MMOL/L Chloride Level 97 L 98-107 MMOL/L Carbon Dioxide Level 25 21-32 MMOL/L Anion Gap 12 5-14 MMOL/L Blood Urea Nitrogen 29 H 7-18 MG/DL Creatinine 1.00 0.60-1.30 MG/DL Estimat Glomerular Filtration Rate > 60 BUN/Creatinine Ratio 29 Glucose Level 290 H 70-105 MG/DL Calcium Level 9.3 8.5-10.1 MG/DL Corrected Calcium 9.1 8.5-10.1 MG/DL Total Bilirubin 0.3 0.1-1.0 MG/DL Aspartate Amino Transf (AST/SGOT) 25 5-34 U/L Alanine Aminotransferase (ALT/SGPT) 29 0-55 U/L Alkaline Phosphatase 106 40-136 U/L C-Reactive Protein High Sensitivity 0.91 H 0.00-0.50 MG/DL Total Protein 7.8 6.4-8.2 GM/DL Albumin 4.3 3.2-4.5 GM/DL My Orders Orders - JULIAN GARCIA APRN Erythrocyte Sedimentation Rate (02/29/20 18:17) Foot, Right, 3 View (02/29/20 18:17) Wound Culture (02/29/20 18:17) Rocephin 1 Gm Iv (1x Dose) (02/29/20 19:15) Doxycycline Hyclate Tablet (Vibramycin T (02/29/20 19:15) Vital Signs/I&O 02/29/20 17:48 Temp 36.9 Pulse 84 Resp 20 B/P (MAP) 139/85 (103) Pulse Ox 94 O2 Delivery Room Air Blood Pressure Mean: 103 Departure Impression Primary Impression: Wound infection Disposition: 01 HOME, SELF-CARE Condition: Stable Departure-Patient Inst. Decision time for Depature: 19:06 Referrals: FERNY SILVERIO MD (PCP/Family) Primary Care Physician Patient Instructions: Wound Infection Add. Discharge Instructions: 1. Return to ER for any worsening. Follow-up with your doctor next week. All discharge instructions reviewed with patient and/or family. Voiced understanding. Scripts Doxycycline Hyclate (Doxycycline Hyclate) 100 Mg Tablet 100 MG PO BID, #20 TAB 0 Refills Prov: JULIAN GARCIA APRN 02/29/20 Images Extremities-Lower 1 - Mild JULIAN GARCIA APRN Feb 29, 2020 18:23
[2020-02-29 18:39] LABS: BASOPHILS % (AUTO) 0 % (0-10); EOSINOPHILS # (AUTO) 0.1 10^3/uL (0.0-0.3); EOSINOPHILS % (AUTO) 2 % (0-10); HEMATOCRIT 36 % (40-54); HEMOGLOBIN 12.1 g/dL (13.3-17.7); LYMPHOCYTES # (AUTO) 1.3 10^3/uL (1.0-4.0); LYMPHOCYTES % (AUTO) 28 % (12-44); MEAN CORPUSCULAR HEMOGLOBIN 31 pg (25-34); MEAN CORPUSCULAR HGB CONC 33 g/dL (32-36); MEAN CORPUSCULAR VOLUME 92 fL (80-99); MEAN PLATELET VOLUME 9.7 fL (9.0-12.2); MONOCYTES # (AUTO) 0.5 10^3/uL (0.0-1.0); MONOCYTES % (AUTO) 10 % (0-12); NEUTROPHILS # (AUTO) 2.7 10^3/uL (1.8-7.8); NEUTROPHILS % (AUTO) 59 % (42-75); PLATELET COUNT 270 10^3/uL (130-400); WHITE BLOOD COUNT 4.6 10^3/uL (4.3-11.0)
[2020-02-29 18:53] LABS: ALBUMIN 4.3 GM/DL (3.2-4.5); CHLORIDE 97 MMOL/L (98-107); SODIUM 134 MMOL/L (135-145)
[2020-02-29 18:54] LABS: CALCIUM 9.3 MG/DL (8.5-10.1)
[2020-02-29 18:55] LABS: GLUCOSE 290 MG/DL (70-105); TOTAL PROTEIN 7.8 GM/DL (6.4-8.2)
[2020-02-29 18:56] LABS: ERYTHROCYTE SEDIMENTATION RATE 46 MM/HR (0-30)
[2020-02-29 18:57] LABS: BILIRUBIN,TOTAL 0.3 MG/DL (0.1-1.0); CARBON DIOXIDE 25 MMOL/L (21-32)
[2020-02-29 18:59] LABS: ALKALINE PHOSPHATASE 106 U/L (40-136); GFR ESTIMATED > 60
[2020-02-29 19:00] LABS: BUN/CREATININE RATIO 29
[2020-02-29 19:02] LABS: ALANINE AMINOTRANSFERASE 29 U/L (0-55)
--- NOTE | 2020-02-29 19:02 | Diagnostic Imaging Report ---
INDICATION: Infection at amputation stump. Swelling. COMPARISON: Right foot radiographs from 12/18/2019. TECHNIQUE: Three views of the right foot were obtained. FINDINGS: There has been amputation of the 1st and 2nd rays at the level of the proximal metatarsals. 3rd ray amputation at the MTP joint has occurred since prior examination. Prior osteotomy of the 4th metatarsal head is unchanged. No osseous erosions are appreciated. Chronic deformities in the base of the 1st metatarsal and at the midfoot-forefoot junction. Soft tissue clips are noted. No soft tissue gas. IMPRESSION: 1. No soft tissue gas. 2. No radiographic features that would confirm osteomyelitis. Dictated by: Dictated on workstation # [id number]
[2020-02-29] MEDS ORDERED: DOXY100T2 PO (19:07)
[2020-02-29] MEDS ORDERED: cefTRIAXone FOR IV USE 1,000 MG in WATER (STERILE) FOR INJECTION 10 ML IV ONE (19:15)
[2020-02-29] MEDS ORDERED: DOXYCYCLINE 100 MG (VIBRAMYCIN) TABLET PO SCH (19:15)
[2020-02-29 19:39] VITALS: BP 140/83
== END 2020-02-29 19:38 | disposition home or self-care (01) ==
LOC: EDUNIT# 17:27 → ER 17:30
DX: T87.43 Infection of amputation stump, right lower extremity (principal); I10 Essential (primary) hypertension; E78.00 Pure hypercholesterolemia, unspecified; E11.40 Type 2 diabetes mellitus with diabetic neuropathy, unspecified; F41.9 Anxiety disorder, unspecified; Z89.411 Acquired absence of right great toe; Z79.4 Long term (current) use of insulin; Z87.891 Personal history of nicotine dependence; Z77.22 Contact with and (suspected) exposure to environmental tobacco smoke (acute) (chronic); Z89.421 Acquired absence of other right toe(s)
CPT/HCPCS: 36415; 73630; 80053; 85025; 85652; 86141; 87070; 87205

== ENCOUNTER 2020-06-21 12:40 | Outpatient (RCR) | payer MEDICARE ==
[2020-04-03 12:25] VITALS: BP 139/70
[2020-05-17 13:54] VITALS: BP 125/64
[~2020-06-21] VITALS: Ht 185.5 cm; Wt 69900.0 kg
[2020-06-21 11:45] VITALS: BP 150/76
[~2020-06-21 12:40] MED LIST changes: +AMLO-251 PO; -AMLO10TA7 PO; +DOXY100T2 PO
== END 2020-07-02 | disposition home or self-care (01) ==
LOC: SDC 12:40
PROVIDERS: ATTEND Internal Medicine
DX: Z45.2 Encounter for adjustment and management of vascular access device (principal)
CPT/HCPCS: 96523

== ENCOUNTER 2020-07-21 11:05 | Emergency (ER) | payer MEDICARE ==
[~2020-07-21] VITALS: Ht 185.4 cm; Wt 115.0 kg
[~2020-07-21 11:05] MED LIST changes: -GEMF600T8 PO; +GEMF600T88 PO
--- NOTE | 2020-07-21 11:43 | ED Lower Extremity ---
General Chief Complaint: Lower Extremity Stated Complaint: FALL YESTERDAY ON ICE, LEG PAIN Nursing Triage Note: TO ED PER W/C YESTERDAY SLIPPED ON ICE AND L LEG WENT SIDE WAYS. HAS NEUROPHY IN LEGS SO HAS NO FEELING. PUT WHEN WENT TO STEP DOWN FELT PAIN. IS ON MS CONTIN AND HYDROCODONE AND FOR CHRONIC PAIN Nursing Sepsis Screen: No Definite Risk Source: patient, family Exam Limitations: no limitations History of Present Illness Date Seen by Provider: Jul 21, 2020 Time Seen by Provider: 11:18 Initial Comments Here with report of left knee swelling and pain as well as a bump on the left foot. Apparently he was outside yesterday and slipped on the ice. States he landed on the left leg and knee. Had injury to that knee last year with broken kneecap after fall. Does have significant neuropathy and does not feel well to either leg. Does have history of metatarsal fracture on the right that resulted in bony erosion and osteomyelitis with partial amputation of the foot due to the neuropathy. He is worried about that currently and so his family on the left to go up on his history and the full. Does state that he has pain whenever trying to put weight on the left leg and pain is mostly around the knee. States he ultimately landed on his bottom and did not hit his head. Did not lose consciou sness. Denies other injury or concerns. Onset: yesterday Severity: moderate Pain/Injury Location: left knee, left foot Method of Injury: fell Modifying Factors: Improves With Immobilization; Worse With Movement Allergies and Home Medications Allergies Coded Allergies: No Known Drug Allergies (Unverified , 12/27/19) Home Medications Alprazolam 2 Mg Tablet, 1 MG PO BID, (Reported) Amlodipine Besylate 10 Mg Tablet, 10 MG PO DAILY, (Reported) Atorvastatin Calcium 40 Mg Tablet, 40 MG PO HS, (Reported) Carisoprodol 350 Mg Tablet, 350 MG PO DAILY, (Reported) Celecoxib 200 Mg Capsule, 200 MG PO DAILY, (Reported) Citalopram Hydrobromide 40 Mg Tablet, 40 MG PO DAILY, (Reported) Cyclobenzaprine HCl 7.5 Mg Tablet, 7.5 MG PO TID, (Reported) Doxycycline Hyclate 100 Mg Tablet, 100 MG PO BID Prescribed by: JULIAN GARCIA on 02/29/201906 Duloxetine HCl 60 Mg Capsule.dr, 60 MG PO DAILY, (Reported) Gemfibrozil 600 Mg Tablet, 600 MG PO DAILY, (Reported) Hydrocodone Bit/Acetaminophen 1 Ea Tab, 1 EA PO Q6H PRN for PAIN-MODERATE (5-7), (Reported) Insulin Degludec 200 Unit/1 Ml Insuln.pen, 200 UNIT SQ HS, (Reported) Insulin Lispro 100 Unit/1 Ml Insuln.pen, 30 ML SQ TIDAC, (Reported) Metformin HCl 1,000 Mg Tablet, 1,000 MG PO BID, (Reported) Mirtazapine 30 Mg Tablet, 30 MG PO HS, (Reported) Morphine Sulfate 15 Mg Tablet.er, 15 MG PO Q8H, (Reported) Pregabalin 225 Mg Capsule, 225 MG PO BID, (Reported) Sulfamethoxazole/Trimethoprim 1 Each Tablet, 1 EACH PO BID, (Reported) Patient Home Medication List Home Medication List Reviewed: Yes Review of Systems Constitutional: see HPI; No chills, No fever Respiratory: no symptoms reported Cardiovascular: no symptoms reported Musculoskeletal: joint pain, joint swelling, muscle pain Psychiatric/Neurological: See HPI Past Fhhkwjf-Nfftjg-Dijflz Hx Past Med/Social Hx: Reviewed Nursing Past Med/Soc Hx Patient Social History Alcohol Use: Denies Use Drug of Choice: cannibus oil Smoking Status: Former Smoker Type Used: Cigarettes, Electronic/Vapor Former Smoker, Quit: September 29, 2013 2nd Hand Smoke Exposure: Yes Recent Infectious Disease Expo: No Recent Hopitalizations: Yes (02/05/20 FOR KIDNEY FAILURE) Immunizations Up To Date Tetanus Booster (TDap): Unknown Date of Pneumonia Vaccine: Aug 03, 2011 Date of Influenza Vaccine: Mar 06, 2019 Seasonal Allergies Seasonal Allergies: Yes Past Medical History Surgeries: Yes (BACK, KNEE, SHOULDER, RT FOOT OSTEOMYELITIS REMOVAL, LPJ- KIDNEY) Amputation, Orthopedic, Renal Respiratory: Yes (O2 2L @ NIGHT AND PRN) COPD Currently Using CPAP: No Currently Using BIPAP: No Cardiac: Yes High Cholesterol, Hypertension Neurological: Yes Neuropathy Reproductive Disorders: No Sexually Transmitted Disease: No Genitourinary: Yes (KINDEY SURGERY) Kidney Stones, Renal Failure Gastrointestinal: No Musculoskeletal: Yes (OSTEOMYELITIS RT FOOT/TOES AMPUTATED; PSORIATIC ARTHRITIS;GEN PAIN ) Degenerate Disk Disease, Arthritis, Back Injury, Chronic Back Pain Endocrine: Yes Diabetes, Insulin dep HEENT: No (GLASSES) Loss of Vision: Denies Hearing Impairment: Denies Cancer: No Psychosocial: Yes Sleep Difficulties, Anxiety Integumentary: Yes Eczema, Psoriasis Blood Disorders: No Adverse Reaction/Blood Tranf: No (N/A) Family Medical History Reviewed Nursing Family Hx Physical Exam Vital Signs Vital Signs - First Documented 07/21/20 11:10 Temp 36.4 Pulse 78 Resp 18 B/P (MAP) 143/79 (100) Pulse Ox 96 O2 Delivery Room Air Capillary Refill : Less Than 3 Seconds Height, Weight, BMI Height: 6'1.00" Weight: 264lbs. 0.0oz. 119.584561ro; 33.00 BMI Method:Stated General Appearance: WD/WN, no apparent distress Cardiovascular: regular rate, rhythm, no murmur Respiratory: lungs clear, normal breath sounds Knees: right knee non-tender, right knee normal inspection, right knee normal range of motion; left knee joint effusion, left knee pain, left knee soft tissue tenderness, left knee swelling Ankles: bilateral ankle non-tender, bilateral ankle normal inspection, bilateral ankle normal range of motion, bilateral ankle no evidence of injury Feet: left foot swelling, left foot other (Nodule noted lateral aspect the left foot near base of fourth/fifth metatarsal. Nontender overall but does report neuropathy. Cap refill less than 2 seconds) Neurologic/Psychiatric: alert, oriented x 3 Skin: warm/dry; No ecchymosis; other (Psoriatic lesions noted to both legs) Progress/Results/Core Measures Results/Orders My Orders Orders - JAME CROWLEY MD Foot, Left, 3 Views (07/21/20 11:23) Knee, Left, 4 Views Or > (07/21/20 11:23) Vital Signs/I&O 07/21/20 11:10 Temp 36.4 Pulse 78 Resp 18 B/P (MAP) 143/79 (100) Pulse Ox 96 O2 Delivery Room Air Blood Pressure Mean: 100 Progress Progress Note : Progress Note Seen and evaluated. X-ray left knee and left foot. States not significantly tender right now as long as he is not walking on it or putting pressure on the left knee. Monitor patient. 1237: No acute fractures noted on x-rays. Does have left knee effusion and chronic degeneration of the left foot. We will place Garry wrap to the left knee and give ice pack. He will use this therapy as well as elevation and will use limited weightbearing at home and see if this helps. Otherwise he will follow up with his doctor for referral to orthopedics and/or for draining of the left knee effusion. He would like to try conservative approach first. He has pain medicines at home and will continue those. Has had history of renal failure so will avoid NSAIDs at this point. Discharged home with return precautions. Patient verbalized understanding of instructions and agreement with plan. Diagnostic Imaging Diagonstic Imaging: Xray Comments [facility] [employer] [place], [place] NAME: PETEY RODRIGUEZ [facility] REC#: [id number] PT STATUS: REG ER : 1960 PHYSICIAN: JAME CROWLEY MD ADMIT DATE: 07/21/20/ER Draft Date of Exam:07/21/20 KNEE, LEFT, 4 VIEWS OR > EXAMINATION: Left knee radiographs, 4 views. COMPARISON: April 09, 2019. HISTORY: 59-year-old male, left knee pain after a fall. FINDINGS: There is chondrocalcinosis. There is a large knee joint effusion. There is degenerative type enthesopathy at the insertion of the distal quadriceps tendon. There is severe lateral and patellofemoral compartment joint space loss. There are patellofemoral compartment osteophytes. There is no identified acute fracture. IMPRESSION: 1. Severe predominantly lateral and patellofemoral compartment arthritis with large knee joint effusion. 2. No identified acute fracture. 3. Chondrocalcinosis which has multiple associations including calcium pyrophosphate dihydrate deposition disease and advanced age. Dictated on workstation # [id number] Dict: 07/21/20 1205 Trans: 07/21/20 1208 [facility] [id number] Interpreted by: SUSAN ARECHIGA MD Electronically signed by: Diagonstic Imaging: Xray Plain Films/CT/US/NM/MRI: other Comments [facility] [employer] [facility] [place], [place] NAME: PETEY RODRIGUEZ [facility] REC#: [id number] PT STATUS: REG ER : 1960 PHYSICIAN: JAME CROWLEY MD ADMIT DATE: 07/21/20/ER Signed Date of Exam:07/21/20 FOOT, LEFT, 3 VIEWS CLINICAL HISTORY: Fall. Left foot pain. COMPARISON: 04/09/2019. TECHNIQUE: 3 views of the left foot. FINDINGS: There is no acute fracture or dislocation of the left foot. Alignment is anatomic. Stable appearance of the focal osseous lesion in the distal aspect of the left 1st metatarsal. The soft tissues of the left foot are unremarkable. IMPRESSION: 1. No acute fracture or dislocation in the left foot. 2. Stable focal osseous lesion in the distal aspect of the left 1st metatarsal. This remains favored to represent sequelae of gout. No active soft tissue inflammation is seen associated with this lesion. Dictated by: Dictated on workstation # [id number] Dict: 07/21/20 1205 Trans: 07/21/20 1216 [facility] [id number] Interpreted by: BRUNILDA MAZA DO Electronically signed by: BRUNILDA MAZA DO 07/21/20 1216 Departure Impression Primary Impression: Internal derangement of left knee Additional Impressions: Effusion, left knee Degenerative arthritis of left foot Qualified Codes: M19.072 - Primary osteoarthritis, left ankle and foot Disposition: 01 HOME, SELF-CARE Condition: Stable Departure-Patient Inst. Decision time for Depature: 12:37 Referrals: FERNY SILVERIO MD (PCP/Family) Primary Care Physician Patient Instructions: Internal Derangement of the Knee (DC), Osteoarthritis (DC) Add. Discharge Instructions: All discharge instructions reviewed with patient and/or family. Voiced understanding. You may use Garry wrap to left knee for support and to reduce swelling as needed over the next several days. Use ice pack to areas of swelling or pain 20 minutes/h as needed to reduce swelling and pain for the next 1 to 2 days. Elevate left leg to reduce swelling. Use walker or crutches to limit weight on the left leg. Follow-up with your doctor this week for recheck and further evaluation and possible referral to orthopedics for further treatment as needed. Return for worse pain, swelling, weakness, numbness of the leg or other concerns as needed. JAME CROWLEY MD Jul 21, 2020 11:43
--- NOTE | 2020-07-21 12:08 | Diagnostic Imaging Report ---
EXAMINATION: Left knee radiographs, 4 views. COMPARISON: April 09, 2019. HISTORY: 59-year-old male, left knee pain after a fall. FINDINGS: There is chondrocalcinosis. There is a large knee joint effusion. There is degenerative type enthesopathy at the insertion of the distal quadriceps tendon. There is severe lateral and patellofemoral compartment joint space loss. There are patellofemoral compartment osteophytes. There is no identified acute fracture. IMPRESSION: 1. Severe predominantly lateral and patellofemoral compartment arthritis with large knee joint effusion. 2. No identified acute fracture. 3. Chondrocalcinosis which has multiple associations including calcium pyrophosphate dihydrate deposition disease and advanced age. Dictated by: Dictated on workstation # [id number]
--- NOTE | 2020-07-21 12:10 | Diagnostic Imaging Report ---
CLINICAL HISTORY: Fall. Left foot pain. COMPARISON: 04/09/2019. TECHNIQUE: 3 views of the left foot. FINDINGS: There is no acute fracture or dislocation of the left foot. Alignment is anatomic. Stable appearance of the focal osseous lesion in the distal aspect of the left 1st metatarsal. The soft tissues of the left foot are unremarkable. IMPRESSION: 1. No acute fracture or dislocation in the left foot. 2. Stable focal osseous lesion in the distal aspect of the left 1st metatarsal. This remains favored to represent sequelae of gout. No active soft tissue inflammation is seen associated with this lesion. Dictated by: Dictated on workstation # [id number]
[2020-07-21 12:43] VITALS: BP 141/96
== END 2020-07-21 12:43 | disposition home or self-care (01) ==
LOC: EDUNIT# 11:05 → ER 11:07
DX: M23.92 Unspecified internal derangement of left knee (principal); M25.462 Effusion, left knee; M19.072 Primary osteoarthritis, left ankle and foot; F41.9 Anxiety disorder, unspecified; I10 Essential (primary) hypertension; E78.00 Pure hypercholesterolemia, unspecified; G89.29 Other chronic pain; M54.9 Dorsalgia, unspecified; E11.9 Type 2 diabetes mellitus without complications; Z87.891 Personal history of nicotine dependence; Z79.891 Long term (current) use of opiate analgesic; Z79.4 Long term (current) use of insulin
CPT/HCPCS: 73564; 73630

== ENCOUNTER 2020-09-27 09:44 | Outpatient (RCR) | payer MEDICARE ==
[2020-07-26 13:30] VITALS: BP 155/97
[~2020-09-27] VITALS: Ht 185.4 cm; Wt 115.0 kg
[2020-09-27 09:53] VITALS: BP 158/65
== END 2020-10-24 | disposition home or self-care (01) ==
LOC: SDC 09:44
PROVIDERS: ATTEND Internal Medicine
DX: Z45.2 Encounter for adjustment and management of vascular access device (principal)
CPT/HCPCS: 96523

== ENCOUNTER 2020-10-18 10:38 | Emergency (ER) | payer MEDICARE ==
[~2020-10-18] VITALS: Ht 185 cm; Wt 115.0 kg
[2020-10-18] MEDS ORDERED: NS IV ONE (11:15)
[2020-10-18 11:29] LABS: BASOPHILS % (AUTO) 0 % (0-10); EOSINOPHILS # (AUTO) 0.1 10^3/uL (0.0-0.3); EOSINOPHILS % (AUTO) 1 % (0-10); HEMATOCRIT 36 % (40-54); HEMOGLOBIN 11.6 g/dL (13.3-17.7); LYMPHOCYTES # (AUTO) 1.5 10^3/uL (1.0-4.0); LYMPHOCYTES % (AUTO) 12 % (12-44); MEAN CORPUSCULAR HEMOGLOBIN 30 pg (25-34); MEAN CORPUSCULAR HGB CONC 32 g/dL (32-36); MEAN CORPUSCULAR VOLUME 92 fL (80-99); MEAN PLATELET VOLUME 10.3 fL (9.0-12.2); MONOCYTES % (AUTO) 8 % (0-12); NEUTROPHILS # (AUTO) 9.9 10^3/uL (1.8-7.8); NEUTROPHILS % (AUTO) 78 % (42-75); PLATELET COUNT 287 10^3/uL (130-400); WHITE BLOOD COUNT 12.7 10^3/uL (4.3-11.0)
[2020-10-18 11:35] LABS: ALBUMIN 4.2 GM/DL (3.2-4.5); POTASSIUM 5.3 MMOL/L (3.6-5.0)
[2020-10-18 11:36] LABS: CALCIUM 8.5 MG/DL (8.5-10.1)
[2020-10-18 11:37] LABS: TOTAL PROTEIN 8.1 GM/DL (6.4-8.2)
[2020-10-18 11:39] LABS: BILIRUBIN,TOTAL 0.6 MG/DL (0.1-1.0); INR 1.1 (0.8-1.4); PROTHROMBIN TIME PATIENT 14.3 SEC (12.2-14.7)
[2020-10-18 11:41] LABS: CREATININE SERUM 6.54 MG/DL (0.60-1.30)
--- NOTE | 2020-10-18 11:43 | ED General ---
General Chief Complaint: General Problems/Pain Stated Complaint: TIRED,WEAKNESS,DIARRHEA Source of Information: Patient Exam Limitations: No Limitations History of Present Illness Date Seen by Provider: October 18, 2020 Time Seen by Provider: 11:08 Initial Comments Arrives with 3 days history of weakness, tiredness, diarrhea and overall not feeling well. Decreased urination for the last 24 hours. Does have history of renal failure and has had 2 previous transfers for this. Reports it was related to septic shock on a previous visit due to the foot wound and on another time due to severe dehydration. He has not required dialysis as of yet. Admits that he has not been drinking well and does have decreased urination currently. is concerned about the renal failure. No reported fevers, sore throat, runny nose or breathing problems. Denies chest pain. Timing/Duration: 3-4 Days, Getting Worse Severity: Moderate, Severe Associated Systoms: No Chest Pain, No Cough, No Diaphoresis, No Fever/Chills, No Headaches; Loss of Appetite, Malaise; No Nausea/Vomiting, No Shortness of Air; Weakness Allergies and Home Medications Allergies Coded Allergies: No Known Drug Allergies (Unverified , 12/27/19) Home Medications Alprazolam 2 Mg Tablet, 1 MG PO BID, (Reported) Amlodipine Besylate 10 Mg Tablet, 10 MG PO DAILY, (Reported) Atorvastatin Calcium 40 Mg Tablet, 40 MG PO HS, (Reported) Carisoprodol 350 Mg Tablet, 350 MG PO DAILY, (Reported) Celecoxib 200 Mg Capsule, 200 MG PO DAILY, (Reported) Citalopram Hydrobromide 40 Mg Tablet, 40 MG PO DAILY, (Reported) Cyclobenzaprine HCl 7.5 Mg Tablet, 7.5 MG PO TID, (Reported) Doxycycline Hyclate 100 Mg Tablet, 100 MG PO BID Prescribed by: JULIAN GARCIA on 02/29/201906 Duloxetine HCl 60 Mg Capsule.dr, 60 MG PO DAILY, (Reported) Gemfibrozil 600 Mg Tablet, 600 MG PO DAILY, (Reported) Hydrocodone Bit/Acetaminophen 1 Ea Tab, 1 EA PO Q6H PRN for PAIN-MODERATE (5-7), (Reported) Insulin Degludec 200 Unit/1 Ml Insuln.pen, 200 UNIT SQ HS, (Reported) Insulin Lispro 100 Unit/1 Ml Insuln.pen, 30 ML SQ TIDAC, (Reported) Metformin HCl 1,000 Mg Tablet, 1,000 MG PO BID, (Reported) Mirtazapine 30 Mg Tablet, 30 MG PO HS, (Reported) Morphine Sulfate 15 Mg Tablet.er, 15 MG PO Q8H, (Reported) Pregabalin 225 Mg Capsule, 225 MG PO BID, (Reported) Sulfamethoxazole/Trimethoprim 1 Each Tablet, 1 EACH PO BID, (Reported) Patient Home Medication List Home Medication List Reviewed: Yes Review of Systems Review of Systems Constitutional: see HPI, weakness EENTM: No nose congestion, No throat pain Respiratory: No cough, No short of breath Cardiovascular: No chest pain, No edema Gastrointestinal: No abdominal pain Genitourinary: see HPI, decreased output, hesitancy Musculoskeletal: back pain, muscle weakness Skin: change in color, lesions Psychiatric/Neurological: Weakness All Other Systems Reviewed Negative Unless Noted: Yes Past Gmqvyhr-Vybars-Lraqth Hx Past Med/Social Hx: Reviewed Nursing Past Med/Soc Hx Patient Social History Alcohol Use: Denies Use Drug of Choice: cannibus oil Smoking Status: Former Smoker Type Used: Cigarettes, Electronic/Vapor Former Smoker, Quit: September 29, 2013 2nd Hand Smoke Exposure: Yes Recent Hopitalizations: Yes (02/05/20 FOR KIDNEY FAILURE) Immunizations Up To Date Tetanus Booster (TDap): Unknown Date of Pneumonia Vaccine: Aug 03, 2011 Date of Influenza Vaccine: Mar 06, 2019 Seasonal Allergies Seasonal Allergies: Yes Past Medical History Surgeries: Yes (BACK, KNEE, SHOULDER, RT FOOT OSTEOMYELITIS REMOVAL, LPJ- KIDNEY) Amputation, Orthopedic, Renal Respiratory: Yes (O2 2L @ NIGHT AND PRN) COPD Currently Using CPAP: No Currently Using BIPAP: No Cardiac: Yes High Cholesterol, Hypertension Neurological: Yes Neuropathy Reproductive Disorders: No Sexually Transmitted Disease: No Genitourinary: Yes (KINDEY SURGERY) Kidney Stones, Renal Failure Gastrointestinal: No Musculoskeletal: Yes (OSTEOMYELITIS RT FOOT/TOES AMPUTATED; PSORIATIC ARTHRITIS;GEN PAIN ) Degenerate Disk Disease, Arthritis, Back Injury, Chronic Back Pain Endocrine: Yes Diabetes, Insulin dep HEENT: No (GLASSES) Loss of Vision: Denies Hearing Impairment: Denies Cancer: No Psychosocial: Yes Sleep Difficulties, Anxiety Integumentary: Yes Eczema, Psoriasis Blood Disorders: No Adverse Reaction/Blood Tranf: No (N/A) Family Medical History Reviewed Nursing Family Hx Physical Exam-Suspected Sepsis Physical Exam Vital Signs Vital Signs - First Documented 10/18/20 10:45 Pulse Ox 97 O2 Delivery Nasal Cannula O2 Flow Rate 2.00 Capillary Refill : Height, Weight, BMI Height: 6'1.00" Weight: 264lbs. 0.0oz. 119.269373bs; 33.00 BMI Method:Stated General Appearance: No Apparent Distress, Chronically ill HEENT: PERRL/EOMI, Other (Mucous membranes dry) Neck: Full Range of Motion, Non Tender, Supple Respiratory: Lungs Clear, Normal Breath Sounds Cardiovascular: Regular Rate, Rhythm, No Murmur Gastrointestinal: Non Tender, Soft Back: Normal Inspection, No CVA Tenderness, No Vertebral Tenderness Extremity: Normal Range of Motion, No Pedal Edema, Other (Right foot at base near first MTP shows ulcerative wound without significant purulent drainage. No significant erythema of the foot or leg although there is some surrounding erythema at wound site.) Neurologic/Psychiatric: Alert, Oriented x3, Normal Mood/Affect, Motor Weakness Skin: warm/dry; No rash; ulcerations (Right foot) Focused Exam Lactate Level 10/18/20 11:06: Lactic Acid Level 1.38 Lactic Acid Level Laboratory Tests Test 10/18/20 11:06 Lactic Acid Level 1.38 MMOL/L (0.50-2.00) Progress/Results/Core Measures Suspected Sepsis SIRS Temperature: Pulse: Respiratory Rate: Laboratory Tests 10/18/20 11:06: White Blood Count 12.7H Blood Pressure / Mean: 10/18/20 11:06: Lactic Acid Level 1.38 Laboratory Tests 10/18/20 11:06: Creatinine 6.54H, INR Comment 1.1, Platelet Count 287, Total Bilirubin 0.6 Results/Orders Lab Results Laboratory Tests Test 10/18/20 10:54 10/18/20 11:06 Range/Units Glucometer 171 H 70-110 MG/DL White Blood Count 12.7 H 4.3-11.0 10^3/uL Red Blood Count 3.92 L 4.30-5.52 10^6/uL Hemoglobin 11.6 L 13.3-17.7 g/dL Hematocrit 36 L 40-54 % Mean Corpuscular Volume 92 80-99 fL Mean Corpuscular Hemoglobin 30 25-34 pg Mean Corpuscular Hemoglobin Concent 32 32-36 g/dL Red Cell Distribution Width 14.7 H 10.0-14.5 % Platelet Count 287 130-400 10^3/uL Mean Platelet Volume 10.3 9.0-12.2 fL Immature Granulocyte % (Auto) 1 % Neutrophils (%) (Auto) 78 H 42-75 % Lymphocytes (%) (Auto) 12 12-44 % Monocytes (%) (Auto) 8 0-12 % Eosinophils (%) (Auto) 1 0-10 % Basophils (%) (Auto) 0 0-10 % Neutrophils # (Auto) 9.9 H 1.8-7.8 10^3/uL Lymphocytes # (Auto) 1.5 1.0-4.0 10^3/uL Monocytes # (Auto) 1.0 0.0-1.0 10^3/uL Eosinophils # (Auto) 0.1 0.0-0.3 10^3/uL Basophils # (Auto) 0.0 0.0-0.1 10^3/uL Immature Granulocyte # (Auto) 0.1 0.0-0.1 10^3/uL Prothrombin Time 14.3 12.2-14.7 SEC INR Comment 1.1 0.8-1.4 Activated Partial Thromboplast Time 32 24-35 SEC Sodium Level 136 135-145 MMOL/L Potassium Level 5.3 H 3.6-5.0 MMOL/L Chloride Level 97 L 98-107 MMOL/L Carbon Dioxide Level 19 L 21-32 MMOL/L Anion Gap 20 H 5-14 MMOL/L Blood Urea Nitrogen 100 *H 7-18 MG/DL Creatinine 6.54 H 0.60-1.30 MG/DL Estimat Glomerular Filtration Rate 9 BUN/Creatinine Ratio 15 Glucose Level 165 H 70-105 MG/DL Lactic Acid Level 1.38 0.50-2.00 MMOL/L Calcium Level 8.5 8.5-10.1 MG/DL Corrected Calcium 8.3 L 8.5-10.1 MG/DL Total Bilirubin 0.6 0.1-1.0 MG/DL Aspartate Amino Transf (AST/SGOT) 12 5-34 U/L Alanine Aminotransferase (ALT/SGPT) 12 0-55 U/L Alkaline Phosphatase 100 40-136 U/L Total Protein 8.1 6.4-8.2 GM/DL Albumin 4.2 3.2-4.5 GM/DL My Orders Orders - JAME CROWLEY MD Cbc With Automated Diff (10/18/20 11:12) Comprehensive Metabolic Panel (10/18/20 11:12) Blood Culture (10/18/20 11:12) Sputum Culture (10/18/20 11:12) Urinalysis (10/18/20 11:12) Urine Culture (10/18/20 11:12) Protime With Inr (10/18/20 11:12) Partial Thromboplastin Time (10/18/20 11:12) Chest 1 View, Ap/Pa Only (10/18/20 11:12) Ed Iv/Invasive Line Start (10/18/20 11:12) Ed Iv/Invasive Line Start (10/18/20 11:12) Vital Signs Adult Sepsis Patie Q15M (10/18/20 11:12) O2 (10/18/20 11:12) Remove Rings In Anticipation O (10/18/20 11:12) Lactic Acid Analyzer (10/18/20 11:12) Ns Iv 1000 Ml (Sodium Chloride 0.9%) (10/18/20 11:15) Piperacillin Sodium/Tazobactam (Zosyn Vi (10/18/20 12:45) Medications Given in ED Current Medications Medications Dose Ordered Sig/Fredis Route Start Time Stop Time Status Last Admin Dose Admin Piperacillin Sod/ Tazobactam Sod 4.5 gm/Sodium Chloride 100 ml @ 200 mls/hr ONCE ONCE IV 10/18/20 12:45 10/18/20 13:14 DC 10/18/20 13:28 200 MLS/HR Sodium Chloride 3,450 ml @ 3,450 mls/hr ONCE ONCE IV 10/18/20 11:15 10/18/20 12:14 DC 10/18/20 11:45 3,450 MLS/HR Vital Signs/I&O 10/18/20 10:45 Pulse Ox 97 O2 Delivery Nasal Cannula O2 Flow Rate 2.00 Capillary Refill : Progress Note : Progress Note Seen and evaluated. IV via port access and second IV site ordered. Sepsis protocol initiated with 30/mL bolus of normal saline especially in light of history of renal failure. We will get lactic acid and blood cultures. Concern for possible septic shock from foot wound or other etiology. We will check urine and chest x-ray. Initial blood pressure 70s and 80s systolic. Monitor patient. 1215: Blood pressure improving nicely with fluids. Awaiting labs. 1325: I did discuss the case with Dr. Walden at [facility] in [place], [place] regarding transfer. Patient is in acute renal failure with creatinine greater than 6 and BUN 100. He has done this before and not require dialysis. We do not have nephrology available here and patient will need facility capable of dialysis if needed as well as nephrology. Dr. Walden has graciously accepted the patient for admission in their facility and we are currently awaiting bed. We have ordered Zosyn 4.5 g IV x1 now. I will initiate Shepard catheter on recommendation of Dr. Walden and I agreed to evaluate for urine output as patient has not been able to give urine sample as of yet. Patient is in agr eement with this. All findings and concerns discussed with patient and family who agree with plan and transfer. We will continue fluids at 200 mL an hour of normal saline pending and during transport. Diagnostic Imaging Diagonstic Imaging: Xray Plain Films/CT/US/NM/MRI: chest Comments [facility] [place] [place] NAME: PETEY RODRIGUEZ III [facility] REC#: [id number] PT STATUS: REG ER : 1960 PHYSICIAN: JAME CROWLEY MD ADMIT DATE: 10/18/20/ER Draft Date of Exam:10/18/20 CHEST 1 VIEW, AP/PA ONLY INDICATION: sepsis. TECHNIQUE: Single view chest 11:31 AM. CORRELATION STUDY: 02/04/2020 FINDINGS: The heart size, mediastinal configuration and pulmonary vascularity are within normal limits. Left subclavian port catheter tip over the SVC. Minimal scarring or atelectasis left lung field. No consolidating infiltrate. Hypoventilation does result perhaps slight crowding at lung bases. IMPRESSION: 1. Negative for acute abnormality of the chest. Dictated on workstation # [id number] Dict: 10/18/20 1141 Trans: 10/18/20 1143 DO [id number] Interpreted by: MOUNA PEÑA DO Electronically signed by: Departure Impression Primary Impression: Acute renal failure Qualified Codes: N17.9 - Acute kidney failure, unspecified Additional Impression: Diabetic foot ulcer Qualified Codes: E11.621 - Type 2 diabetes mellitus with foot ulcer; L97.412 - Non-pressure chronic ulcer of right heel and midfoot with fat layer exposed Disposition: 02 XFER SHT-TRM HOSP Condition: Stable Transfer Transfer Reason: Exceeds level of care Time Spoke to Accepting Phy: 13:24 Transfer Facility: [place], [place], Dr. Walden accepting Method of Transfer: EMS Departure-Patient Inst. Referrals: FERNY SILVERIO MD (PCP/Family) Primary Care Physician JAME CROWLEY MD October 18, 2020 11:43
[2020-10-18] MEDS ORDERED: PIPERACILLIN SODIUM/TAZOBACTAM 4.5 GM in NS (IVPB) 100 ML IV ONE (12:45)
[2020-10-18 13:47] LABS: BILIRUBIN,URINE NEGATIVE (NEGATIVE); CLARITY,URINE CLEAR; COLOR,URINE YELLOW; GLUCOSE, URINE (UA) NEGATIVE (NEGATIVE); KETONES,URINE NEGATIVE (NEGATIVE); LEUKOCYTE ESTERASE ,URINE NEGATIVE (NEGATIVE); NITRITE,URINE NEGATIVE (NEGATIVE); PH,URINE 5.5 (5-9); PROTEIN,URINE 2+ (NEGATIVE)
[2020-10-18 14:12] LABS: AMORPHOUS SEDIMENT,UR LARGE AMOR URATES /LPF; BACTERIA,URINE NEGATIVE /HPF; CALCIUM OXALATE CRYSTALS,UR MODERATE /LPF; SQUAMOUS EPITHELIAL CELL,UR 0-2 /HPF
[2020-10-18 14:13] LABS: HYALINE CASTS, URINE 0-2 /LPF
[2020-10-18] MEDS ORDERED: NS IV 500 ML 500 ML ONE (14:57)
[2020-10-18 15:32] VITALS: BP 94/56
[2020-10-19] MEDS ORDERED: NS IV 1000 ML 1,000 ML ONE (09:00)
== END 2020-10-18 15:35 | disposition short-term general hospital (02) ==
LOC: EDUNIT# 10:38 → ER 10:40
DX: N17.9 Acute kidney failure, unspecified (principal); E11.621 Type 2 diabetes mellitus with foot ulcer; L97.519 Non-pressure chronic ulcer of other part of right foot with unspecified severity; I10 Essential (primary) hypertension; E11.40 Type 2 diabetes mellitus with diabetic neuropathy, unspecified; J44.9 Chronic obstructive pulmonary disease, unspecified; E78.00 Pure hypercholesterolemia, unspecified; F41.9 Anxiety disorder, unspecified; G89.29 Other chronic pain; M54.9 Dorsalgia, unspecified; Z99.81 Dependence on supplemental oxygen; Z87.891 Personal history of nicotine dependence; Z77.22 Contact with and (suspected) exposure to environmental tobacco smoke (acute) (chronic); Z79.891 Long term (current) use of opiate analgesic; Z79.4 Long term (current) use of insulin; Z79.899 Other long term (current) drug therapy
CPT/HCPCS: 36415; 71045; 80053; 81000; 82947; 83605; 85025; 85610; 85730; 87040; 87088

== ENCOUNTER 2021-01-24 12:32 | Outpatient (RCR) | payer MEDICARE ==
[2020-11-25 13:05] VITALS: BP 134/76
[2020-12-20 12:35] VITALS: BP 151/81
[~2021-01-24] VITALS: Ht 185 cm; Wt 115.0 kg
[~2021-01-24 12:32] MED LIST changes: +MIRT-69 PO; -SULF1TAB35 PO; +SULF1TAB38 PO
[2021-01-24 12:33] VITALS: BP 144/78
== END 2021-01-24 12:36 | disposition home or self-care (01) ==
LOC: SDC 12:32
PROVIDERS: ATTEND Internal Medicine
DX: Z45.2 Encounter for adjustment and management of vascular access device (principal)
CPT/HCPCS: 96523

== ENCOUNTER → 2021-03-13 | Outpatient (CLI) | payer MEDICARE ==
[2021-03-13 13:50] LABS: HEMATOCRIT 31 % (40-54); HEMOGLOBIN 10.1 g/dL (13.3-17.7); MEAN CORPUSCULAR HEMOGLOBIN 30 pg (25-34); WHITE BLOOD COUNT 5.9 10^3/uL (4.3-11.0)
[2021-03-13 13:51] LABS: BASOPHILS % (AUTO) 0 % (0-10); EOSINOPHILS # (AUTO) 0.2 10^3/uL (0.0-0.3); EOSINOPHILS % (AUTO) 3 % (0-10); LYMPHOCYTES # (AUTO) 0.8 X 10^3 (1.0-4.0); LYMPHOCYTES % (AUTO) 13 % (12-44); MEAN CORPUSCULAR HGB CONC 32 g/dL (32-36); MEAN CORPUSCULAR VOLUME 92 fL (80-99); MEAN PLATELET VOLUME 10.1 fL (9.0-12.2); MONOCYTES # (AUTO) 0.5 X 10^3 (0.0-1.0); MONOCYTES % (AUTO) 8 % (0-12); NEUTROPHILS # (AUTO) 4.5 X 10^3 (1.8-7.8); NEUTROPHILS % (AUTO) 75 % (42-75); PLATELET COUNT 443 10^3/uL (130-400)
[2021-03-13 14:04] LABS: ALBUMIN 3.4 GM/DL (3.2-4.5); BILIRUBIN,TOTAL 0.2 MG/DL (0.1-1.0); CALCIUM 9.3 MG/DL (8.5-10.1); CREATININE SERUM 0.6 MG/DL (0.60-1.30); TOTAL PROTEIN 8.2 GM/DL (6.4-8.2)
[2021-03-13 18:06] LABS: VANCOMYCIN,TROUGH 29.6 UG/ML (10.0-20.0)
== END ==
LOC: IHC 13:28
PROVIDERS: ATTEND Internal Medicine
DX: N17.9 Acute kidney failure, unspecified (principal)
CPT/HCPCS: 80053; 80202; 85025

== ENCOUNTER → 2021-03-15 | Outpatient (CLI) | payer MEDICARE | LOC: LABNPT 08:12 | PROVIDERS: ATTEND Internal Medicine | DX: N17.9 Acute kidney failure, unspecified (principal) | CPT/HCPCS: 80202 ==

== ENCOUNTER → 2021-03-17 | Outpatient (CLI) | payer MEDICARE | LOC: LABNPT 08:22 | PROVIDERS: ATTEND Podiatrist Foot & Ankle Surgery | DX: N17.9 Acute kidney failure, unspecified (principal) | CPT/HCPCS: 80202 ==

== ENCOUNTER → 2021-03-18 | Outpatient (CLI) | payer MEDICARE | LOC: LABNPT 08:59 | PROVIDERS: ATTEND Podiatrist Foot & Ankle Surgery | DX: M17.9 Osteoarthritis of knee, unspecified (principal) | CPT/HCPCS: 80202 ==

== ENCOUNTER → 2021-03-20 | Outpatient (CLI) | payer MEDICARE ==
[2021-03-20 09:11] LABS: BASOPHILS % (AUTO) 0 % (0-10); EOSINOPHILS # (AUTO) 0.1 10^3/uL (0.0-0.3); EOSINOPHILS % (AUTO) 4 % (0-10); HEMATOCRIT 28 % (40-54); HEMOGLOBIN 8.8 g/dL (13.3-17.7); LYMPHOCYTES # (AUTO) 0.7 10^3/uL (1.0-4.0); LYMPHOCYTES % (AUTO) 20 % (12-44); MEAN CORPUSCULAR HEMOGLOBIN 30 pg (25-34); MEAN CORPUSCULAR HGB CONC 31 g/dL (32-36); MEAN CORPUSCULAR VOLUME 97 fL (80-99); MEAN PLATELET VOLUME 9.2 fL (9.0-12.2); MONOCYTES # (AUTO) 0.3 10^3/uL (0.0-1.0); MONOCYTES % (AUTO) 10 % (0-12); NEUTROPHILS # (AUTO) 2.1 10^3/uL (1.8-7.8); NEUTROPHILS % (AUTO) 65 % (42-75); PLATELET COUNT 214 10^3/uL (130-400); WHITE BLOOD COUNT 3.3 10^3/uL (4.3-11.0)
[2021-03-20 09:38] LABS: ALBUMIN 3.8 GM/DL (3.2-4.5); BILIRUBIN,TOTAL 0.4 MG/DL (0.1-1.0); CALCIUM 9.7 MG/DL (8.5-10.1); CREATININE SERUM 0.84 MG/DL (0.60-1.30); POTASSIUM 3.8 MMOL/L (3.6-5.0); TOTAL PROTEIN 8.5 GM/DL (6.4-8.2)
[2021-03-20 09:49] LABS: VANCOMYCIN,TROUGH 37.6 UG/ML (10.0-20.0)
== END ==
LOC: LABNPT 09:00
PROVIDERS: ATTEND Internal Medicine
DX: A41.9 Sepsis, unspecified organism (principal)
CPT/HCPCS: 80053; 80202; 85025

== ENCOUNTER → 2021-03-24 | Outpatient (CLI) | payer MEDICARE | LOC: LABNPT 13:24 | PROVIDERS: ATTEND Podiatrist Foot & Ankle Surgery | DX: A41.9 Sepsis, unspecified organism (principal) | CPT/HCPCS: 80202 ==

== ENCOUNTER → 2021-03-27 | Outpatient (CLI) | payer MEDICARE ==
[2021-03-27 10:20] LABS: ALBUMIN 3.4 GM/DL (3.2-4.5); BILIRUBIN,TOTAL 0.5 MG/DL (0.1-1.0); CALCIUM 8.8 MG/DL (8.5-10.1); CREATININE SERUM 0.86 MG/DL (0.60-1.30); POTASSIUM 3.9 MMOL/L (3.6-5.0); TOTAL PROTEIN 7.4 GM/DL (6.4-8.2)
== END ==
LOC: LABNPT 09:48
PROVIDERS: ATTEND Internal Medicine
DX: A41.9 Sepsis, unspecified organism (principal)
CPT/HCPCS: 80053; 80202

== ENCOUNTER 2021-05-12 10:17 | Outpatient (RCR) | payer MEDICARE ==
[2021-02-24 12:38] VITALS: BP 150/69
[~2021-05-12] VITALS: Ht 185 cm; Wt 115.0 kg
[2021-05-12 10:05] VITALS: BP 154/85
[~2021-05-12 10:17] MED LIST changes: -CITA40TA11; -CITA40TA11 PO; +CITA40TA13; +CITA40TA13 PO
== END 2021-05-12 10:41 | disposition home or self-care (01) ==
LOC: SDC 10:17
PROVIDERS: ATTEND Internal Medicine
DX: Z45.2 Encounter for adjustment and management of vascular access device (principal)
CPT/HCPCS: 96523

== ENCOUNTER 2021-05-23 11:44 | Emergency (ER) | payer MEDICARE ==
[~2021-05-23] VITALS: Ht 185.4 cm; Wt 115.0 kg
--- NOTE | 2021-05-23 11:54 | ED General ---
General Chief Complaint: General Problems/Pain Stated Complaint: BACK/KNEE PAIN Source of Information: Patient Exam Limitations: No Limitations History of Present Illness Date Seen by Provider: May 23, 2021 Time Seen by Provider: 11:53 Initial Comments To ER with reports that he slid out of his lift chair. He has some chronic pain to both knees, the right knee is perhaps a bit worse than usual. Did not hit his head no other injuries. He just wants a general check over. He is supposed to have bilateral knee replacement. His reports that he has fevers at night, increasing pain in bilateral knees, now has pain in the left wrist. Unsure why this is been an ongoing issue for him. The bilateral knee pain is debilitating. He is not on any medications for this but does report that he briefly had a course of meloxicam for 5 days and it helped tremendously. History of psoriasis. Timing/Duration: 1-2 Days Severity: Moderate Associated Systoms: Denies Symptoms Allergies and Home Medications Allergies Coded Allergies: No Known Drug Allergies (Unverified , 12/27/19) Patient Home Medication List Home Medication List Reviewed: Yes Alprazolam (Alprazolam) 2 Mg Tablet, 1 MG PO BID, (Reported) Entered as Reported by: HERRERA BASILIO on 12/27/191426 Amlodipine Besylate (Amlodipine Besylate) 10 Mg Tablet, 10 MG PO DAILY, (Reported) Entered as Reported by: MERARI MARX on 09/29/16 1446 Atorvastatin Calcium (Atorvastatin Calcium) 40 Mg Tablet, 40 MG PO HS, (Reported) Entered as Reported by: MERARI MARX on 09/29/16 144 Carisoprodol (Carisoprodol) 350 Mg Tablet, 350 MG PO DAILY, (Reported) Entered as Reported by: HERRERA BASILIO on 12/27/19 142 Celecoxib (Celecoxib) 200 Mg Capsule, 200 MG PO DAILY, (Reported) Entered as Reported by: HERRERA BASILIO on 12/27/191426 Citalopram Hydrobromide (Citalopram HBr) 40 Mg Tablet, 40 MG PO DAILY, (Reported) Entered as Reported by: HERRERA BASILIO on 12/27/191426 Cyclobenzaprine HCl (Cyclobenzaprine HCl) 7.5 Mg Tablet, 7.5 MG PO TID, (Reported) Entered as Reported by: HERRERA BASILIO on 12/27/19 142 Doxycycline Hyclate (Doxycycline Hyclate) 100 Mg Tablet, 100 MG PO BID Prescribed by: JULIAN GARCIA on 02/29/20 190 Duloxetine HCl (Duloxetine HCl) 60 Mg Capsule.dr, 60 MG PO DAILY, (Reported) Entered as Reported by: HERRERA BASILIO on 12/27/19 142 Gemfibrozil (Gemfibrozil) 600 Mg Tablet, 600 MG PO DAILY, (Reported) Entered as Reported by: HERRERA BASILIO on 12/27/19 142 Hydrocodone Bit/Acetaminophen (HYDROcodone/APAP 10/325 TABLET) 1 Ea Tab, 1 EA PO Q6H PRN for PAIN-MODERATE (5-7), (Reported) Entered as Reported by: HERRERA BASILIO on 12/27/191426 Insulin Degludec (Tresiba Flextouch U-200) 200 Unit/1 Ml Insuln.pen, 200 UNIT SQ HS, (Reported) Entered as Reported by: HERRERA BASILIO on 12/27/19 142 Insulin Lispro (Humalog Kwikpen) 100 Unit/1 Ml Insuln.pen, 30 ML SQ TIDAC, (Reported) Entered as Reported by: MERARI MARX on 09/29/16 1446 Meloxicam (Meloxicam) 7.5 Mg Tablet, 7.5 MG PO DAILY Prescribed by: JULIAN GARCIA on 05/23/21 1400 Metformin HCl (Metformin HCl) 1,000 Mg Tablet, 1,000 MG PO BID, (Reported) Entered as Reported by: HERRERA BASILIO on 12/27/19 142 Mirtazapine (Mirtazapine) 30 Mg Tablet, 30 MG PO HS, (Reported) Entered as Reported by: HERRERA BASILIO on 12/27/19 142 Morphine Sulfate (Ms Contin) 15 Mg Tablet.er, 15 MG PO Q8H, (Reported) Entered as Reported by: HERRERA BASILIO on 12/27/19 142 Pregabalin (Pregabalin) 225 Mg Capsule, 225 MG PO BID, (Reported) Entered as Reported by: HERRERA BASILIO on 12/27/191426 Sulfamethoxazole/Trimethoprim (Bactrim Ds Tablet) 1 Each Tablet, 1 EACH PO BID, (Reported) Entered as Reported by: HERRERA BASILIO on 12/27/191426 Review of Systems Review of Systems Constitutional: see HPI EENTM: see HPI Respiratory: no symptoms reported Cardiovascular: no symptoms reported Genitourinary: no symptoms reported Musculoskeletal: see HPI Skin: no symptoms reported Psychiatric/Neurological: No Symptoms Reported Hematologic/Lymphatic: No Symptoms Reported Past Jonjotz-Exxnzx-Gsxzqy Hx Immunizations Up To Date Tetanus Booster (TDap): Unknown Seasonal Allergies Seasonal Allergies: Yes Past Medical History Surgeries: Yes (BACK, KNEE, SHOULDER, RT FOOT OSTEOMYELITIS REMOVAL, LPJ- KIDNEY) Amputation, Orthopedic, Renal Respiratory: Yes (O2 2L @ NIGHT AND PRN) COPD Currently Using CPAP: No Currently Using BIPAP: No Cardiac: Yes High Cholesterol, Hypertension Neurological: Yes Neuropathy Reproductive Disorders: No Sexually Transmitted Disease: No Genitourinary: Yes (KINDEY SURGERY) Kidney Stones, Renal Failure Gastrointestinal: No Musculoskeletal: Yes (OSTEOMYELITIS RT FOOT/TOES AMPUTATED; PSORIATIC ARTHRITIS;GEN PAIN ) Degenerate Disk Disease, Arthritis, Back Injury, Chronic Back Pain Endocrine: Yes Diabetes, Insulin dep HEENT: No (GLASSES) Loss of Vision: Denies Hearing Impairment: Denies Cancer: No Psychosocial: Yes Sleep Difficulties, Anxiety Integumentary: Yes Eczema, Psoriasis Blood Disorders: No Adverse Reaction/Blood Tranf: No (N/A) Physical Exam Vital Signs Vital Signs - First Documented 05/23/21 11:50 Temp 36.9 Pulse 83 Resp 20 B/P (MAP) 177/107 (130) Pulse Ox 98 O2 Delivery Room Air Capillary Refill : Height, Weight, BMI Height: 6'1.00" Weight: 264lbs. 0.0oz. 119.398716mq; 33.00 BMI Method:Stated General Appearance: No Apparent Distress, WD/WN Eyes: Bilateral Eye Normal Inspection, Bilateral Eye PERRL, Bilateral Eye EOMI Respiratory: Normal Breath Sounds, No Accessory Muscle Use, No Respiratory Distress Cardiovascular: Regular Rate, Rhythm, Normal Peripheral Pulses Gastrointestinal: Normal Bowel Sounds, Non Tender, Soft Extremity: Other (Bilateral knees have palpable effusion no erythema no ecchymosis) Neurologic/Psychiatric: Alert, Oriented x3 Skin: Normal Color, Warm/Dry Procedures/Interventions Additional Procedures: Arthrocentesis Aspirating Progress Did a bilateral arthrocentesis. The left knee I was unable to get more than 1 mL out which was clear yellow. The right knee which is also swollen gave me 42 mL of cloudy yellow synovial fluid. This was sent to lab for evaluation. This was done with sterile technique. Progress/Results/Core Measures Suspected Sepsis SIRS Temperature: Pulse: Respiratory Rate: Laboratory Tests 05/23/21 13:18: White Blood Count 8.7 Blood Pressure / Mean: Laboratory Tests 05/23/21 13:18: Creatinine 0.79, Platelet Count 236, Total Bilirubin 0.5 Results/Orders Lab Results Laboratory Tests Test 05/23/21 13:18 05/23/21 13:36 Range/Units White Blood Count 8.7 4.3-11.0 10^3/uL Red Blood Count 3.87 L 4.30-5.52 10^6/uL Hemoglobin 11.1 L 13.3-17.7 g/dL Hematocrit 35 L 40-54 % Mean Corpuscular Volume 91 80-99 fL Mean Corpuscular Hemoglobin 29 25-34 pg Mean Corpuscular Hemoglobin Concent 32 32-36 g/dL Red Cell Distribution Width 14.2 10.0-14.5 % Platelet Count 236 130-400 10^3/uL Mean Platelet Volume 10.0 9.0-12.2 fL Immature Granulocyte % (Auto) 0 % Neutrophils (%) (Auto) 75 42-75 % Lymphocytes (%) (Auto) 14 12-44 % Monocytes (%) (Auto) 11 0-12 % Eosinophils (%) (Auto) 0 0-10 % Basophils (%) (Auto) 0 0-10 % Neutrophils # (Auto) 6.5 1.8-7.8 10^3/uL Lymphocytes # (Auto) 1.2 1.0-4.0 10^3/uL Monocytes # (Auto) 0.9 0.0-1.0 10^3/uL Eosinophils # (Auto) 0.0 0.0-0.3 10^3/uL Basophils # (Auto) 0.0 0.0-0.1 10^3/uL Immature Granulocyte # (Auto) 0.0 0.0-0.1 10^3/uL Erythrocyte Sedimentation Rate 126 H 0-30 MM/HR Sodium Level 139 135-145 MMOL/L Potassium Level 3.6 3.6-5.0 MMOL/L Chloride Level 96 L 98-107 MMOL/L Carbon Dioxide Level 30 21-32 MMOL/L Anion Gap 13 5-14 MMOL/L Blood Urea Nitrogen 14 7-18 MG/DL Creatinine 0.79 0.60-1.30 MG/DL Estimat Glomerular Filtration Rate 99 BUN/Creatinine Ratio 18 Glucose Level 149 H 70-105 MG/DL Calcium Level 9.8 8.5-10.1 MG/DL Corrected Calcium 9.8 8.5-10.1 MG/DL Total Bilirubin 0.5 0.1-1.0 MG/DL Aspartate Amino Transf (AST/SGOT) 20 5-34 U/L Alanine Aminotransferase (ALT/SGPT) 14 0-55 U/L Alkaline Phosphatase 70 40-136 U/L C-Reactive Protein High Sensitivity 14.22 H 0.00-0.50 MG/DL Total Protein 9.3 H 6.4-8.2 GM/DL Albumin 4.0 3.2-4.5 GM/DL Procalcitonin 0.05 <0.10 NG/ML Urine Color YELLOW Urine Clarity CLEAR Urine pH 6.0 5-9 Urine Specific [place] 1.020 1.016-1.022 Urine Protein 1+ H NEGATIVE Urine Glucose (UA) NEGATIVE NEGATIVE Urine Ketones NEGATIVE NEGATIVE Urine Nitrite NEGATIVE NEGATIVE Urine Bilirubin NEGATIVE NEGATIVE Urine Urobilinogen 0.2 < = 1.0 MG/DL Urine Leukocyte Esterase NEGATIVE NEGATIVE Urine RBC (Auto) NEGATIVE NEGATIVE Urine RBC NONE /HPF Urine WBC NONE /HPF Urine Crystals PRESENT H /LPF Urine Amorphous Sediment RARE JUAN ANTONIO URATES H /LPF Urine Bacteria NEGATIVE /HPF Urine Casts NONE /LPF Urine Mucus NEGATIVE /LPF Urine Culture Indicated NO My Orders Orders - 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, 3 Views, Bilateral (05/23/21 11:52) Ed Iv/Invasive Line Start (05/23/21 13:24) Cbc With Automated Diff (05/23/21 13:24) Ua Culture If Indicated (05/23/21 13:24) Comprehensive Metabolic Panel (05/23/21 13:24) Body Fluid Cell Count (05/23/21 13:24) Body Fluid Culture (05/23/21 13:24) Crystals,Body Fluid (05/23/21 13:24) Anti-Nuclear Ab (Chel) Analyzer (05/23/21 13:24) Ra Factor (Rheumatoid Factor) (05/23/21 13:24) Cyclic Citrullinated Pept Ccp (05/23/21 13:24) Erythrocyte Sedimentation Rate (05/23/21 13:24) Hs C Reactive Protein (05/23/21 13:24) Procalcitonin (Pct) (05/23/21 13:24) Chest 1 View, Ap/Pa Only (05/23/21 13:30) Methylprednisolone Acetate Inj (Depo-Med (05/23/21 15:15) Vital Signs/I&O 05/23/21 11:50 Temp 36.9 Pulse 83 Resp 20 B/P (MAP) 177/107 (130) Pulse Ox 98 O2 Delivery Room Air Capillary Refill : Departure Communication (Admissions) NAME: PETEY RODRIGUEZ III [facility] REC#: [id number] PT STATUS: REG ER : 1960 PHYSICIAN: JULIAN GARCIA APRN ADMIT DATE: 05/23/21/ER Signed Date of Exam:05/23/21 CHEST 1 VIEW, AP/PA ONLY EXAMINATION: Portable chest is compared to prior study from October 18, 2020. INDICATION: Fever. FINDINGS: There is a linear region of density within the mid left lung which has not significantly changed from the prior examination and likely reflects scar. There appear to be background features of COPD. There is no new infiltrate or consolidation. There is no effusion. There is no pneumothorax. Heart size and pulmonary vascularity are stable. IMPRESSION: 1. Stable radiographic appearance of the chest. There appear to be chronic interstitial changes within the lungs suggesting underlying COPD. There is stable linear scarring within the mid left lung. There is no new alveolar consolidation or pneumonia evident. Dictated by: Dictated on workstation # [id number] Dict: 05/23/21 1355 Trans: 05/23/21 1353 [id number] Interpreted by: MORAIMA MERCADO MD Electronically signed by: MORAIMA MERCADO MD 05/23/21 1352 Impression Primary Impression: Polyarthritis Disposition: 01 HOME, SELF-CARE Condition: Stable Departure-Patient Inst. Decision time for Depature: 13:59 Referrals: FERNY SILVERIO MD (PCP/Family) Primary Care Physician Patient Instructions: Joint Pain Add. Discharge Instructions: 1. Follow-up with [facility] to discuss further evaluation and treatment of the arthritis in other joints. If this is something like rheumatoid arthritis is would warrant treatment with a different class of drugs such as methotrexate. All discharge instructions reviewed with patient and/or family. Voiced understanding. Scripts Meloxicam (Meloxicam) 7.5 Mg Tablet 7.5 MG PO DAILY, #14 TAB Prov: JULIAN GARCIA APRN 05/23/21 JULIAN GARCIA APRN May 23, 2021 11:54
--- NOTE | 2021-05-23 12:19 | Diagnostic Imaging Report ---
Indication: Bilateral knee pain. Comparison: 07/21/2020 3 views of the right knee, 3 views of the left knee demonstrate stable bilateral pericardial effusions. There is moderate to severe degenerative joint disease in all 3 compartments. There is no fracture, dislocation or osseous lesion. Impression: Stable degenerative changes. No fracture. Dictated by: Dictated on workstation # [id number]
[2021-05-23 13:44] LABS: BASOPHILS % (AUTO) 0 % (0-10); EOSINOPHILS % (AUTO) 0 % (0-10); HEMATOCRIT 35 % (40-54); HEMOGLOBIN 11.1 g/dL (13.3-17.7); LYMPHOCYTES # (AUTO) 1.2 10^3/uL (1.0-4.0); LYMPHOCYTES % (AUTO) 14 % (12-44); MEAN CORPUSCULAR HEMOGLOBIN 29 pg (25-34); MEAN CORPUSCULAR HGB CONC 32 g/dL (32-36); MEAN CORPUSCULAR VOLUME 91 fL (80-99); MONOCYTES # (AUTO) 0.9 10^3/uL (0.0-1.0); MONOCYTES % (AUTO) 11 % (0-12); NEUTROPHILS # (AUTO) 6.5 10^3/uL (1.8-7.8); NEUTROPHILS % (AUTO) 75 % (42-75); PLATELET COUNT 236 10^3/uL (130-400); WHITE BLOOD COUNT 8.7 10^3/uL (4.3-11.0)
[2021-05-23 13:50] LABS: POTASSIUM 3.6 MMOL/L (3.6-5.0)
[2021-05-23 13:51] LABS: CALCIUM 9.8 MG/DL (8.5-10.1)
[2021-05-23 13:52] LABS: TOTAL PROTEIN 9.3 GM/DL (6.4-8.2)
[2021-05-23 13:54] LABS: BILIRUBIN,URINE NEGATIVE (NEGATIVE); CLARITY,URINE CLEAR; COLOR,URINE YELLOW; GLUCOSE, URINE (UA) NEGATIVE (NEGATIVE); KETONES,URINE NEGATIVE (NEGATIVE); LEUKOCYTE ESTERASE ,URINE NEGATIVE (NEGATIVE); NITRITE,URINE NEGATIVE (NEGATIVE); PROTEIN,URINE 1+ (NEGATIVE)
[2021-05-23 13:54] LABS: BILIRUBIN,TOTAL 0.5 MG/DL (0.1-1.0)
--- NOTE | 2021-05-23 13:55 | Diagnostic Imaging Report ---
EXAMINATION: Portable chest is compared to prior study from October 18, 2020. INDICATION: Fever. FINDINGS: There is a linear region of density within the mid left lung which has not significantly changed from the prior examination and likely reflects scar. There appear to be background features of COPD. There is no new infiltrate or consolidation. There is no effusion. There is no pneumothorax. Heart size and pulmonary vascularity are stable. IMPRESSION: 1. Stable radiographic appearance of the chest. There appear to be chronic interstitial changes within the lungs suggesting underlying COPD. There is stable linear scarring within the mid left lung. There is no new alveolar consolidation or pneumonia evident. Dictated by: Dictated on workstation # [id number]
[2021-05-23 13:56] LABS: CREATININE SERUM 0.79 MG/DL (0.60-1.30)
[2021-05-23] MEDS ORDERED: MELO7.5T46 PO (14:00)
[2021-05-23 14:07] LABS: AMORPHOUS SEDIMENT,UR RARE AMOR URATES /LPF; BACTERIA,URINE NEGATIVE /HPF
[2021-05-23 14:11] LABS: ERYTHROCYTE SEDIMENTATION RATE 126 MM/HR (0-30)
[2021-05-23 15:12] LABS: BODY FLUID APPEARENCE MOD CLDY; BODY FLUID COLOR YELLOW; BODY FLUID SOURCE SYNOVIAL
[2021-05-23 15:13] LABS: BODY FLUID RBC COUNT 38.3 /uL; BODY FLUID WBC TOTAL COUNT 39250 /uL
[2021-05-23] MEDS ORDERED: methylPREDNISolone 80 MG/ML (DEPO MEDROL) VIAL IM ONE (15:15)
[2021-05-23 15:22] VITALS: BP 168/76
[2021-05-23 16:11] LABS: BF OTHER CELLS 11 %; LYMPHOCYTES,BODY FLUID 0 %
== END 2021-05-23 15:25 | disposition home or self-care (01) ==
LOC: EDUNIT# 11:44 → ER 11:45
DX: M13.0 Polyarthritis, unspecified (principal); J44.9 Chronic obstructive pulmonary disease, unspecified; I10 Essential (primary) hypertension; E78.00 Pure hypercholesterolemia, unspecified; E11.9 Type 2 diabetes mellitus without complications; F41.9 Anxiety disorder, unspecified; G89.29 Other chronic pain; M54.9 Dorsalgia, unspecified; Z79.4 Long term (current) use of insulin; Z79.899 Other long term (current) drug therapy; Z79.891 Long term (current) use of opiate analgesic
CPT/HCPCS: 36415; 71045; 80053; 81000; 84145; 85025; 85652; 86141; 87070; 87077; 87205; 89051; 89060

== ENCOUNTER → 2021-06-18 | Outpatient (CLI) | payer MEDICARE ==
[~2021-06-18] MED LIST changes: +MELO7.5T46 PO
[2021-06-18 11:45] VITALS: BP 156/68
[2021-06-18 12:11] LABS: CREATININE SERUM 0.8 MG/DL (0.60-1.30)
== END ==
LOC: SDC 11:07
PROVIDERS: ATTEND Nurse Practitioner Family
DX: N13.39 Other hydronephrosis (principal)
CPT/HCPCS: 36415; 36591; 82565

== ENCOUNTER → 2021-07-16 | Outpatient (CLI) | payer MEDICARE ==
[2021-07-16 13:30] VITALS: BP 150/89
== END ==
LOC: SDC 13:11
PROVIDERS: ATTEND Internal Medicine
DX: Z45.2 Encounter for adjustment and management of vascular access device (principal)
CPT/HCPCS: 96523

== ENCOUNTER → 2021-08-13 | Outpatient (CLI) | payer MEDICARE ==
[2021-08-13 13:07] VITALS: BP 164/67
== END ==
LOC: SDC 12:54
PROVIDERS: ATTEND Internal Medicine
DX: Z45.2 Encounter for adjustment and management of vascular access device (principal)
CPT/HCPCS: 96523

== ENCOUNTER → 2021-09-17 | Outpatient (CLI) | payer MEDICARE ==
[2021-09-17 09:05] VITALS: BP 131/71
== END ==
LOC: SDC 08:13
PROVIDERS: ATTEND Internal Medicine
DX: Z45.2 Encounter for adjustment and management of vascular access device (principal)
CPT/HCPCS: 96523

== ENCOUNTER 2021-10-03 17:06 | Emergency (ER) | payer MEDICARE ==
[~2021-10-03] VITALS: Ht 185.5 cm; Wt 119.3 kg
--- NOTE | 2021-10-03 18:23 | Diagnostic Imaging Report ---
CLINICAL INDICATIONS: Patient with sepsis. EXAM: Portable chest x-ray upright view. COMPARISON: Chest x-ray dated 05/23/2021. FINDINGS: Lungs/pleura: Lungs are clear. Previously seen atelectasis in left midlung field has resolved. There is no pneumothorax. There is no pleural effusion. Mediastinum: Unremarkable. Pulmonary vasculature: Unremarkable. Heart: Unremarkable. Bones/extrathoracic soft tissue: There are degenerative spurs involving the spine. IMPRESSION: There is no radiographic evidence of acute cardiopulmonary process. Dictated by: Dictated on workstation # [id number]
[2021-10-03] MEDS ORDERED: HYDROcodone/APAP 5 MG/325 MG (LORTAB) TAB PO ONE (18:30)
--- NOTE | 2021-10-03 18:41 | ED Lower Extremity ---
General Chief Complaint: Lower Extremity Stated Complaint: R FOOT SWELLING/FEVER Nursing Triage Note: PT ARRIVED BY PRIVATE VEHICLE WITH CHIEF COMPLAINT OF RIGHT FOOT SWOLLEN. DM PATIENT AND HAD DOCTOR CHECK IT LAST WEEK AND IT WAS FINE. PT HAS HAD 3 TOES CUT OFF DUE TO NEUROPATHY. PT IS ALERT, ORIENTED X 4 AND WHEELED BACK TO FT3. PT HAD FEVER OF 103 AND TOOK TYLENOL AT 1530 TODAY. PT'S VITALS WERE DONE AND REPORT WAS GIVEN. Source: patient Exam Limitations: no limitations History of Present Illness Date Seen by Provider: October 03, 2021 Time Seen by Provider: 18:37 Initial Comments To ER iwth c/o right foot redness and swelling. Had a fever of 103 at home. 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 Daughter looked at foot at home and believed he stepped on something as there seems to be a puncture wound over the plantar surface of 1st distal metatarsal. He does not recall stepping on anything. Onset: just prior to arrival Severity: moderate Pain/Injury Location: right foot Method of Injury: unknown Modifying Factors: Worse With Movement Allergies and Home Medications Allergies Coded Allergies: No Known Drug Allergies (Unverified , 12/27/19) Patient Home Medication List Home Medication List Reviewed: Yes Alprazolam (Alprazolam) 2 Mg Tablet, 1 MG PO BID, (Reported) Entered as Reported by: HERRERA BASILIO on 12/27/191426 Amlodipine Besylate (Amlodipine Besylate) 10 Mg Tablet, 10 MG PO DAILY, (Reported) Entered as Reported by: MERARI MARX on 09/29/16 1446 Atorvastatin Calcium (Atorvastatin Calcium) 40 Mg Tablet, 40 MG PO HS, (Reported) Entered as Reported by: MERARI MARX on 09/29/16 1446 Carisoprodol (Carisoprodol) 350 Mg Tablet, 350 MG PO DAILY, (Reported) Entered as Reported by: HERRERA BASILIO on 12/27/19 142 Celecoxib (Celecoxib) 200 Mg Capsule, 200 MG PO DAILY, (Reported) Entered as Reported by: HERRERA BASILIO on 12/27/19 142 Citalopram Hydrobromide (Citalopram HBr) 40 Mg Tablet, 40 MG PO DAILY, (Reported) Entered as Reported by: HERRERA BASILIO on 12/27/19 142 Cyclobenzaprine HCl (Cyclobenzaprine HCl) 7.5 Mg Tablet, 7.5 MG PO TID, (Reported) Entered as Reported by: HERRERA BASILIO on 12/27/19 142 Doxycycline Hyclate (Doxycycline Hyclate) 100 Mg Tablet, 100 MG PO BID Prescribed by: JULIAN GARCIA on 02/29/20 1907 Duloxetine HCl (Duloxetine HCl) 60 Mg Capsule.dr, 60 MG PO DAILY, (Reported) Entered as Reported by: HERRERA BASILIO on 12/27/19 142 Gemfibrozil (Gemfibrozil) 600 Mg Tablet, 600 MG PO DAILY, (Reported) Entered as Reported by: HERRERA BASILIO on 12/27/19 142 Hydrocodone Bit/Acetaminophen (HYDROcodone/APAP 10/325 TABLET) 1 Ea Tab, 1 EA PO Q6H PRN for PAIN-MODERATE (5-7), (Reported) Entered as Reported by: HERRERA BASILIO on 12/27/19 142 Insulin Degludec (Tresiba Flextouch U-200) 200 Unit/1 Ml Insuln.pen, 200 UNIT SQ HS, (Reported) Entered as Reported by: HERRERA BASILIO on 12/27/19 142 Insulin Lispro (Humalog Kwikpen) 100 Unit/1 Ml Insuln.pen, 30 ML SQ TIDAC, (Reported) Entered as Reported by: MERARI MARX on 09/29/16 1446 Meloxicam (Meloxicam) 7.5 Mg Tablet, 7.5 MG PO DAILY Prescribed by: JULIAN GARCIA on 05/23/21 1400 Metformin HCl (Metformin HCl) 1,000 Mg Tablet, 1,000 MG PO BID, (Reported) Entered as Reported by: HERRERA BASILIO on 12/27/19 142 Mirtazapine (Mirtazapine) 30 Mg Tablet, 30 MG PO HS, (Reported) Entered as Reported by: HERRERA BASILIO on 12/27/19 142 Morphine Sulfate (Ms Contin) 15 Mg Tablet.er, 15 MG PO Q8H, (Reported) Entered as Reported by: HERRERA BASILIO on 12/27/19 1427 Pregabalin (Pregabalin) 225 Mg Capsule, 225 MG PO BID, (Reported) Entered as Reported by: HERRERA BASILIO on 12/27/19 142 Sulfamethoxazole/Trimethoprim (Bactrim Ds Tablet) 1 Each Tablet, 1 EACH PO BID, (Reported) Entered as Reported by: HERRERA BASILIO on 12/27/19 142 Review of Systems Constitutional: see HPI, fever EENTM: see HPI Respiratory: no symptoms reported Cardiovascular: no symptoms reported Genitourinary: no symptoms reported Musculoskeletal: no symptoms reported Skin: no symptoms reported Psychiatric/Neurological: No Symptoms Reported Past Ospdckp-Qidrux-Wwvydu Hx Patient Social History Tobacco Use?: Yes Use of E-Cig and/or Vaping dev: Yes Substance use?: Yes Substance type: Marijuana Alcohol Use?: No Pt feels they are or have been: No Immunizations Up To Date Tetanus Booster (TDap): Unknown First/Initial COVID19 Vaccinat: july 2020 Second COVID19 Vaccination Wiley: august 2020 Seasonal Allergies Seasonal Allergies: Yes Past Medical History Surgeries: Yes (BACK, KNEE, SHOULDER, RT FOOT OSTEOMYELITIS REMOVAL, LPJ- KIDNEY) Amputation, Orthopedic, Renal Respiratory: Yes (O2 2L @ NIGHT AND PRN) COPD Currently Using CPAP: No Currently Using BIPAP: No Cardiac: Yes High Cholesterol, Hypertension Neurological: Yes Neuropathy Reproductive Disorders: No Sexually Transmitted Disease: No Genitourinary: Yes (KINDEY SURGERY) Kidney Stones, Renal Failure Gastrointestinal: No Musculoskeletal: Yes (OSTEOMYELITIS RT FOOT/TOES AMPUTATED; PSORIATIC ARTHRITIS;GEN PAIN ) Degenerate Disk Disease, Arthritis, Back Injury, Chronic Back Pain Endocrine: Yes Diabetes, Insulin dep HEENT: No (GLASSES) Loss of Vision: Denies Hearing Impairment: Denies Cancer: No Psychosocial: Yes Sleep Difficulties, Anxiety Integumentary: Yes Eczema, Psoriasis Blood Disorders: No Adverse Reaction/Blood Tranf: No (N/A) Physical Exam Vital Signs Vital Signs - First Documented 10/03/21 17:30 Temp 38.0 Pulse 88 Resp 22 B/P (MAP) 148/78 (101) Pulse Ox 93 O2 Delivery Room Air Capillary Refill : Less Than 3 Seconds Height, Weight, BMI Height: 6'1.00" Weight: 264lbs. 0.0oz. 119.997111wl; 34.00 BMI Method:Stated General Appearance: WD/WN, no apparent distress, other (afebrile here. Appears chronically ill. ) Neck: non-tender, full range of motion Respiratory: no respiratory distress, no accessory muscle use Gastrointestinal: normal bowel sounds, non tender, soft Hips: bilateral hip non-tender, bilateral hip normal inspection, bilateral hip normal range of motion Legs: bilateral leg non-tender, bilateral leg normal inspection, bilateral leg normal range of motion Knees: bilateral knee non-tender, bilateral knee normal inspection, bilateral knee normal range of motion Ankles: bilateral ankle normal inspection, bilateral ankle normal range of motion Feet: right foot other (to plantar surface of foot over distal 1st metatarsal is a very small 1-2mm ulcer with some surrounding callous. No appreciable erythema or cellulitis. No drainage. ) Neurologic/Psychiatric: alert, normal mood/affect, oriented x 3 Skin: normal color, warm/dry Progress/Results/Core Measures Results/Orders Lab Results Laboratory Tests Test 10/03/21 18:56 10/03/21 18:57 10/03/21 19:20 Range/Units White Blood Count 14.1 H 4.3-11.0 10^3/uL Red Blood Count 3.87 L 4.30-5.52 10^6/uL Hemoglobin 12.0 L 13.3-17.7 g/dL Hematocrit 37 L 40-54 % Mean Corpuscular Volume 96 80-99 fL Mean Corpuscular Hemoglobin 31 25-34 pg Mean Corpuscular Hemoglobin Concent 32 32-36 g/dL Red Cell Distribution Width 12.9 10.0-14.5 % Platelet Count 185 130-400 10^3/uL Mean Platelet Volume 9.9 9.0-12.2 fL Immature Granulocyte % (Auto) 0 % Neutrophils (%) (Auto) 86 H 42-75 % Lymphocytes (%) (Auto) 6 L 12-44 % Monocytes (%) (Auto) 6 0-12 % Eosinophils (%) (Auto) 1 0-10 % Basophils (%) (Auto) 0 0-10 % Neutrophils # (Auto) 12.1 H 1.8-7.8 10^3/uL Lymphocytes # (Auto) 0.9 L 1.0-4.0 10^3/uL Monocytes # (Auto) 0.9 0.0-1.0 10^3/uL Eosinophils # (Auto) 0.2 0.0-0.3 10^3/uL Basophils # (Auto) 0.0 0.0-0.1 10^3/uL Immature Granulocyte # (Auto) 0.1 0.0-0.1 10^3/uL Neutrophils % (Manual) 91 % Lymphocytes % (Manual) 4 % Monocytes % (Manual) 3 % Eosinophils % (Manual) 2 % Blood Morphology Comment NORMAL Prothrombin Time 14.1 12.2-14.7 SEC INR Comment 1.1 0.8-1.4 Activated Partial Thromboplast Time 36 H 24-35 SEC Sodium Level 139 135-145 MMOL/L Potassium Level 5.8 H 3.6-5.0 MMOL/L Chloride Level 101 98-107 MMOL/L Carbon Dioxide Level 26 21-32 MMOL/L Anion Gap 12 5-14 MMOL/L Blood Urea Nitrogen 20 H 7-18 MG/DL Creatinine 0.98 0.60-1.30 MG/DL Estimat Glomerular Filtration Rate 87 BUN/Creatinine Ratio 20 Glucose Level 157 H 70-105 MG/DL Lactic Acid Level 1.14 0.50-2.00 MMOL/L Calcium Level 9.1 8.5-10.1 MG/DL Corrected Calcium 8.5-10.1 MG/DL Total Bilirubin 0.5 0.1-1.0 MG/DL Aspartate Amino Transf (AST/SGOT) 37 H 5-34 U/L Alanine Aminotransferase (ALT/SGPT) 32 0-55 U/L Alkaline Phosphatase 94 40-136 U/L Total Protein 8.7 H 6.4-8.2 GM/DL Albumin 4.6 H 3.2-4.5 GM/DL C-Reactive Protein High Sensitivity 0.79 H 0.00-0.50 MG/DL Urine Color YELLOW Urine Clarity CLEAR Urine pH 8.5 5-9 Urine Specific [place] 1.020 1.016-1.022 Urine Protein 2+ H NEGATIVE Urine Glucose (UA) NEGATIVE NEGATIVE Urine Ketones NEGATIVE NEGATIVE Urine Nitrite NEGATIVE NEGATIVE Urine Bilirubin NEGATIVE NEGATIVE Urine Urobilinogen 0.2 < = 1.0 MG/DL Urine Leukocyte Esterase NEGATIVE NEGATIVE Urine RBC (Auto) NEGATIVE NEGATIVE Urine RBC 0-2 /HPF Urine WBC 0-2 /HPF Urine Squamous Epithelial Cells RARE /HPF Urine Crystals NONE /LPF Urine Bacteria FEW H /HPF Urine Casts NONE /LPF Urine Mucus NEGATIVE /LPF Urine Culture Indicated CULTURE PENDING My Orders Orders - JULIAN GARCIA APRN Cbc With Automated Diff (10/03/21 18:12) Comprehensive Metabolic Panel (10/03/21 18:12) Blood Culture (10/03/21 18:12) Sputum Culture (10/03/21 18:12) Urinalysis (10/03/21 18:12) Urine Culture (10/03/21 18:12) Protime With Inr (10/03/21 18:12) Partial Thromboplastin Time (10/03/21 18:12) Chest 1 View, Ap/Pa Only (10/03/21 18:12) Ed Iv/Invasive Line Start (10/03/21 18:12) Ed Iv/Invasive Line Start (10/03/21 18:12) Vital Signs Adult Sepsis Patie Q15M (10/03/21 18:12) O2 (10/03/21 18:12) Remove Rings In Anticipation O (10/03/21 18:12) Lactic Acid Analyzer (10/03/21 18:12) Hydrocodone/Apap 5/325 Tablet (Lortab 5 (10/03/21 18:30) Foot, Right, 3 View (10/03/21 18:37) Manual Differential (10/03/21 18:56) Erythrocyte Sedimentation Rate (10/03/21 19:43) Hs C Reactive Protein (10/03/21 19:43) Ceftriaxone 1 Gm Pre-Mix (Rocephin 1 Gm (10/03/21 20:15) Medications Given in ED Current Medications Medications Dose Ordered Sig/Fredis Route Start Time Stop Time Status Last Admin Dose Admin Acetaminophen/ Hydrocodone Bitart 1 ea ONCE ONCE PO 10/03/21 18:30 10/03/21 18:31 DC 10/03/21 19:24 1 EA Vital Signs/I&O 10/03/21 17:30 Temp 38.0 Pulse 88 Resp 22 B/P (MAP) 148/78 (101) Pulse Ox 93 O2 Delivery Room Air 2 Blood Pressure Mean: 101 Departure Communication (Admissions) Family Conversation NAME: PETEY RODRIGUEZ Don III MED REC#: [id number] PT STATUS: REG ER : 1960 PHYSICIAN: JULIAN GARCIA APRN ADMIT DATE: 10/03/21/ER Draft Date of Exam:10/03/21 FOOT, RIGHT, 3 VIEW CLINICAL INDICATIONS: Patient with ulcer on plantar surface of foot. EXAM: X-ray of the right foot, 3 views. COMPARISON: X-ray of the right foot dated 02/29/2020. FINDINGS: Again seen is amputation of the 3rd digit at the level of the PIP joint. There is amputation at the level of the distal diaphysis of the 2nd metatarsal bone. There is amputation of the 1st digit which appears to be at the MCP joint region. Stable bony deformity of the distal aspect of the 4th distal metaphysis. There is stable soft tissue swelling involving the foot most pronounced in the 1st through 3rd amputated regions. Multiple surgical clips are again seen in the region. There is no soft tissue air. There is slight soft tissue lobulation involving the plantar aspect of the area of soft tissue swelling which may be related to ulcer. There are no bony erosive changes in the interim. There is calcification in the soft tissue with swelling seen and as noted on the prior study. Hypertrophic calcaneal spurs again noted. IMPRESSION: Grossly similar appearing bony detail of the right foot with multiple amputations, as described above. There is no interval bony destructive or erosive changes. There is soft tissue swelling involving the foot in the 1st through 3rd digit amputation regions and plantar aspect. Dictated on workstation # [id number] Dict: 10/03/211941 Trans: 10/03/211949 PJE [id number] Interpreted by: MEAGAN BANUELOS MD Electronically signed by: Impression Primary Impression: Diabetic foot ulcer Disposition: 01 HOME, SELF-CARE Condition: Stable Departure-Patient Inst. Decision time for Depature: 20:18 Referrals: FERNY SILVERIO MD (PCP/Family) Primary Care Physician Patient Instructions: NO INSTRUCTIONS GIVEN Add. Discharge Instructions: Pain medication as directed. ANtibiotic as directed. Follow up with Your doctor next week. Return to ER for any worsneing. All discharge instructions reviewed with patient and/or family. Voiced understanding. Scripts Doxycycline Hyclate (Doxycycline Hyclate) 100 Mg Tablet 100 MG PO BID, #20 TAB 0 Refills Prov: JULIAN GARCIA APRN 10/03/21 JULIAN GARCIA APRN October 03, 2021 18:41
[2021-10-03 18:59] LABS: BASOPHILS % (AUTO) 0 % (0-10); EOSINOPHILS # (AUTO) 0.2 10^3/uL (0.0-0.3); EOSINOPHILS % (AUTO) 1 % (0-10); HEMATOCRIT 37 % (40-54); LYMPHOCYTES # (AUTO) 0.9 10^3/uL (1.0-4.0); LYMPHOCYTES % (AUTO) 6 % (12-44); MEAN CORPUSCULAR HEMOGLOBIN 31 pg (25-34); MEAN CORPUSCULAR HGB CONC 32 g/dL (32-36); MEAN CORPUSCULAR VOLUME 96 fL (80-99); MEAN PLATELET VOLUME 9.9 fL (9.0-12.2); MONOCYTES # (AUTO) 0.9 10^3/uL (0.0-1.0); MONOCYTES % (AUTO) 6 % (0-12); NEUTROPHILS # (AUTO) 12.1 10^3/uL (1.8-7.8); NEUTROPHILS % (AUTO) 86 % (42-75); PLATELET COUNT 185 10^3/uL (130-400); WHITE BLOOD COUNT 14.1 10^3/uL (4.3-11.0)
[2021-10-03 19:09] LABS: ALBUMIN 4.6 GM/DL (3.2-4.5)
[2021-10-03 19:10] LABS: CHLORIDE 101 MMOL/L (98-107); INR 1.1 (0.8-1.4); POTASSIUM 5.8 MMOL/L (3.6-5.0); PROTHROMBIN TIME PATIENT 14.1 SEC (12.2-14.7); SODIUM 139 MMOL/L (135-145)
[2021-10-03 19:11] LABS: CALCIUM 9.1 MG/DL (8.5-10.1)
[2021-10-03 19:12] LABS: GLUCOSE 157 MG/DL (70-105); TOTAL PROTEIN 8.7 GM/DL (6.4-8.2)
[2021-10-03 19:13] LABS: CARBON DIOXIDE 26 MMOL/L (21-32)
[2021-10-03 19:14] LABS: BILIRUBIN,TOTAL 0.5 MG/DL (0.1-1.0)
[2021-10-03 19:15] LABS: ALKALINE PHOSPHATASE 94 U/L (40-136)
[2021-10-03 19:16] LABS: CREATININE SERUM 0.98 MG/DL (0.60-1.30); GFR ESTIMATED 87
[2021-10-03 19:17] LABS: BUN/CREATININE RATIO 20
[2021-10-03 19:18] LABS: ALANINE AMINOTRANSFERASE 32 U/L (0-55)
--- NOTE | 2021-10-03 19:50 | Diagnostic Imaging Report ---
CLINICAL INDICATIONS: Patient with ulcer on plantar surface of foot. EXAM: X-ray of the right foot, 3 views. COMPARISON: X-ray of the right foot dated 02/29/2020. FINDINGS: Again seen is amputation of the 3rd digit at the level of the PIP joint. There is amputation at the level of the distal diaphysis of the 2nd metatarsal bone. There is amputation of the 1st digit which appears to be at the MCP joint region. Stable bony deformity of the distal aspect of the 4th distal metaphysis. There is stable soft tissue swelling involving the foot most pronounced in the 1st through 3rd amputated regions. Multiple surgical clips are again seen in the region. There is no soft tissue air. There is slight soft tissue lobulation involving the plantar aspect of the area of soft tissue swelling which may be related to ulcer. There are no bony erosive changes in the interim. There is calcification in the soft tissue with swelling seen and as noted on the prior study. Hypertrophic calcaneal spurs again noted. IMPRESSION: Grossly similar appearing bony detail of the right foot with multiple amputations, as described above. There is no interval bony destructive or erosive changes. There is soft tissue swelling involving the foot in the 1st through 3rd digit amputation regions and plantar aspect. Dictated by: Dictated on workstation # [id number]
[2021-10-03 19:55] LABS: BILIRUBIN,URINE NEGATIVE (NEGATIVE); CLARITY,URINE CLEAR; COLOR,URINE YELLOW; GLUCOSE, URINE (UA) NEGATIVE (NEGATIVE); KETONES,URINE NEGATIVE (NEGATIVE); LEUKOCYTE ESTERASE ,URINE NEGATIVE (NEGATIVE); NITRITE,URINE NEGATIVE (NEGATIVE); PH,URINE 8.5 (5-9); PROTEIN,URINE 2+ (NEGATIVE)
[2021-10-03] MEDS ORDERED: cefTRIAXone 1 GM PRE-MIX 50 ML IV ONE (20:15)
[2021-10-03 20:16] LABS: BACTERIA,URINE FEW /HPF; RBC,URINE 0-2 /HPF; SQUAMOUS EPITHELIAL CELL,UR RARE /HPF; WBC,URINE 0-2 /HPF
[2021-10-03 20:17] LABS: EOSINOPHILS % (MANUAL) 2 %; LYMPHOCYTES % (MANUAL) 4 %; MONOCYTES % (MANUAL) 3 %; NEUTROPHILS % (MANUAL) 91 %; RBC MORPH NORMAL
[2021-10-03] MEDS ORDERED: DOXY100T2 PO (20:20)
[2021-10-03 22:53] VITALS: BP 133/71
== END 2021-10-03 20:30 | disposition home or self-care (01) ==
LOC: EDUNIT# 17:06 → ER 17:07
DX: E11.621 Type 2 diabetes mellitus with foot ulcer (principal); L97.519 Non-pressure chronic ulcer of other part of right foot with unspecified severity; E11.40 Type 2 diabetes mellitus with diabetic neuropathy, unspecified; J44.9 Chronic obstructive pulmonary disease, unspecified; F17.290 Nicotine dependence, other tobacco product, uncomplicated; Z99.81 Dependence on supplemental oxygen; Z79.4 Long term (current) use of insulin; Z89.421 Acquired absence of other right toe(s)
CPT/HCPCS: 36415; 71045; 73630; 80053; 81000; 83605; 85007; 85027; 85610; 85652; 85730; 86141; 87040; 87088

== ENCOUNTER → 2021-10-15 | Day surgery (SDC) | payer MEDICARE ==
[~2021-10-15] VITALS: Wt 119.3 kg
[2021-10-15 13:25] VITALS: BP 140/61
== END | disposition home or self-care (01) ==
LOC: SDC 13:07
PROVIDERS: ATTEND Internal Medicine
DX: Z45.2 Encounter for adjustment and management of vascular access device (principal)
CPT/HCPCS: 96523

== ENCOUNTER → 2021-11-14 | Outpatient (CLI) | payer MEDICARE ==
[~2021-11-14] VITALS: Wt 119.3 kg
[2021-11-14 13:02] VITALS: BP 123/74
== END ==
LOC: SDC 12:33
PROVIDERS: ATTEND Internal Medicine
DX: Z45.2 Encounter for adjustment and management of vascular access device (principal)
CPT/HCPCS: 96523

== ENCOUNTER 2021-12-23 12:49 | Outpatient (CLI) | payer MEDICARE ==
[~2021-12-23] VITALS: Wt 119.3 kg
[2021-12-23 13:10] VITALS: BP 151/69
== END 2021-12-23 14:04 ==
LOC: SDC 12:49
PROVIDERS: ATTEND Internal Medicine Nephrology
DX: N17.0 Acute kidney failure with tubular necrosis (principal); N13.39 Other hydronephrosis; N20.0 Calculus of kidney
CPT/HCPCS: 36591; 82570; 84156

== ENCOUNTER → 2022-01-26 | Day surgery (SDC) | payer MEDICARE ==
[~2022-01-26] VITALS: Ht 185.5 cm; Wt 119.3 kg
[2022-01-26 13:10] VITALS: BP 177/72
== END | disposition home or self-care (01) ==
LOC: SDC 13:04
PROVIDERS: ATTEND Internal Medicine
DX: Z45.2 Encounter for adjustment and management of vascular access device (principal)
CPT/HCPCS: 96523

== ENCOUNTER 2022-02-26 11:15 | Observation (INO) | payer MEDICARE ==
[~2022-02-26] VITALS: Ht 185.5 cm; Wt 122.2 kg
--- NOTE | 2022-02-26 11:21 | ED General ---
General Chief Complaint: Fever-Adult/Adol Stated Complaint: FEVER - SOA History of Present Illness Date Seen by Provider: Feb 26, 2022 Time Seen by Provider: 11:17 Initial Comments Patient arrives to the emergency department with . Reports that he has fever that started last night. reports that fever was as high as 104 at home. She gave Tylenol at home prior to arrival to the ER today. She states that he has had some confusion in addition. Denies recent sick contacts that she is aware of. Denies exposure to COVID. Reports that he was vaccinated for the flu last week. Does report headache and body aches in addition. Did have knee replacement done in November of this year. Timing/Duration: 1 Day Severity: Moderate Modifying Factors: improves with Medication Associated Systoms: No Chest Pain; Cough; No Diaphoresis; Fever/Chills, Headaches; No Loss of Appetite, No Malaise, No Nausea/Vomiting; Weakness (generalized) Allergies and Home Medications Allergies Coded Allergies: No Known Drug Allergies (Unverified , 12/27/19) Patient Home Medication List Home Medication List Reviewed: Yes Alprazolam (Alprazolam) 2 Mg Tablet, 1 MG PO BID, (Reported) Entered as Reported by: HERRERA BASILIO on 12/27/19 142 Amlodipine Besylate (Amlodipine Besylate) 10 Mg Tablet, 10 MG PO DAILY, (Reported) Entered as Reported by: MERARI MARX on 09/29/16 1446 Atorvastatin Calcium (Atorvastatin Calcium) 40 Mg Tablet, 40 MG PO HS, (Reported) Entered as Reported by: MERARI MARX on 09/29/16 144 Carisoprodol (Carisoprodol) 350 Mg Tablet, 350 MG PO DAILY, (Reported) Entered as Reported by: HERRERA BASILIO on 12/27/19 142 Celecoxib (Celecoxib) 200 Mg Capsule, 200 MG PO DAILY, (Reported) Entered as Reported by: HERRERA BASILIO on 12/27/19 142 Citalopram Hydrobromide (Citalopram HBr) 40 Mg Tablet, 40 MG PO DAILY, (Reported) Entered as Reported by: HERRERA BASILIO on 12/27/19 142 Cyclobenzaprine HCl (Cyclobenzaprine HCl) 7.5 Mg Tablet, 7.5 MG PO TID, (Reported) Entered as Reported by: HERRERA BASILIO on 12/27/19 142 Doxycycline Hyclate (Doxycycline Hyclate) 100 Mg Tablet, 100 MG PO BID Prescribed by: JULIAN GARCIA on 02/29/20 190 Doxycycline Hyclate (Doxycycline Hyclate) 100 Mg Tablet, 100 MG PO BID Prescribed by: JULIAN GARCIA on 10/03/212019 Duloxetine HCl (Duloxetine HCl) 60 Mg Capsule.dr, 60 MG PO DAILY, (Reported) Entered as Reported by: HERRERA BASILIO on 12/27/19 142 Gemfibrozil (Gemfibrozil) 600 Mg Tablet, 600 MG PO DAILY, (Reported) Entered as Reported by: HERRERA BASILIO on 12/27/19 142 Hydrocodone Bit/Acetaminophen (HYDROcodone/APAP 10/325 TABLET) 1 Ea Tab, 1 EA PO Q6H PRN for PAIN-MODERATE (5-7), (Reported) Entered as Reported by: HERRERA BASILIO on 12/27/19 142 Insulin Degludec (Tresiba Flextouch U-200) 200 Unit/1 Ml Insuln.pen, 200 UNIT SQ HS, (Reported) Entered as Reported by: HERRERA BASILIO on 12/27/19 142 Insulin Lispro (Humalog Kwikpen) 100 Unit/1 Ml Insuln.pen, 30 ML SQ TIDAC, (Reported) Entered as Reported by: MERARI MARX on 09/29/16 1446 Meloxicam (Meloxicam) 7.5 Mg Tablet, 7.5 MG PO DAILY Prescribed by: JULIAN GARCIA on 05/23/21 1400 Metformin HCl (Metformin HCl) 1,000 Mg Tablet, 1,000 MG PO BID, (Reported) Entered as Reported by: HERRERA BASILIO on 12/27/19 142 Mirtazapine (Mirtazapine) 30 Mg Tablet, 30 MG PO HS, (Reported) Entered as Reported by: HERRERA BASILIO on 12/27/19 142 Morphine Sulfate (Ms Contin) 15 Mg Tablet.er, 15 MG PO Q8H, (Reported) Entered as Reported by: HERRERA BASILIO on 12/27/19 1427 Pregabalin (Pregabalin) 225 Mg Capsule, 225 MG PO BID, (Reported) Entered as Reported by: HERRERA BASILIO on 12/27/19 142 Sulfamethoxazole/Trimethoprim (Bactrim Ds Tablet) 1 Each Tablet, 1 EACH PO BID, (Reported) Entered as Reported by: HERRERA BASILIO on 12/27/19 142 Review of Systems Review of Systems Constitutional: chills; No diaphoresis, No dizziness; fever; No malaise; weakness (generalized) EENTM: No ear pain, No nose congestion, No throat pain, No throat swelling Respiratory: cough; No dyspnea on exertion, No orthopnea, No phlegm, No short of breath, No wheezing Cardiovascular: No chest pain, No palpitations Gastrointestinal: No abdominal pain, No diarrhea, No nausea, No vomiting Genitourinary: No dysuria, No frequency Musculoskeletal: muscle pain Skin: No pruritus, No rash Psychiatric/Neurological: Headache; Denies Numbness; Weakness (generalized) All Other Systems Reviewed Negative Unless Noted: Yes Past Baktlji-Ptqnva-Rdcydn Hx Immunizations Up To Date Tetanus Booster (TDap): Unknown First/Initial COVID19 Vaccinat: july 2020 Second COVID19 Vaccination Wiley: august 2020 Seasonal Allergies Seasonal Allergies: Yes Past Medical History Surgeries: Yes (BACK, KNEE, SHOULDER, RT FOOT OSTEOMYELITIS REMOVAL, LPJ- KIDNEY) Amputation, Orthopedic, Renal Respiratory: Yes (O2 2L @ NIGHT AND PRN) COPD Currently Using CPAP: No Currently Using BIPAP: No Cardiac: Yes High Cholesterol, Hypertension Neurological: Yes Neuropathy Reproductive Disorders: No Sexually Transmitted Disease: No Genitourinary: Yes (KINDEY SURGERY) Kidney Stones, Renal Failure Gastrointestinal: No Musculoskeletal: Yes (OSTEOMYELITIS RT FOOT/TOES AMPUTATED; PSORIATIC ARTHRITIS;GEN PAIN ) Degenerate Disk Disease, Arthritis, Back Injury, Chronic Back Pain Endocrine: Yes Diabetes, Insulin dep HEENT: No (GLASSES) Loss of Vision: Denies Hearing Impairment: Denies Cancer: No Psychosocial: Yes Sleep Difficulties, Anxiety Integumentary: Yes Eczema, Psoriasis Blood Disorders: No Adverse Reaction/Blood Tranf: No (N/A) Family Medical History Reviewed Nursing Family Hx Physical Exam-Suspected Sepsis Physical Exam Vital Signs Vital Signs - First Documented 02/26/22 02/26/22 11:17 11:20 Temp 37.8 Pulse 94 Resp 26 B/P (MAP) 141/84 (103) Pulse Ox 94 O2 Delivery Nasal Cannula O2 Flow Rate 2.00 Capillary Refill : Height, Weight, BMI Height: 6'1.00" Weight: 264lbs. 0.0oz. 119.390027we; 34.00 BMI Method:Stated General Appearance: No Apparent Distress, WD/WN HEENT: PERRL/EOMI, Pharynx Normal, Moist Mucous Membranes Neck: Full Range of Motion, Normal Inspection, Non Tender, Supple Respiratory: Chest Non Tender, No Accessory Muscle Use, No Respiratory Distress, Decreased Breath Sounds, Wheezing (expiratory wheezing scattered t hroughout all colvin) Cardiovascular: Regular Rate, Rhythm, No Edema Gastrointestinal: Normal Bowel Sounds, No Organomegaly, No Pulsatile Mass, Non Tender, Soft Extremity: Normal Capillary Refill, Normal Inspection, Normal Range of Motion Neurologic/Psychiatric: Alert, Oriented x3, Normal Mood/Affect Skin: normal color, warm/dry Focused Exam Sepsis Stage: Sepsis Possible Source: Pulmonary Lactate Level 02/26/22 11:20: Lactic Acid Level 2.70*H 02/26/22 13:05: Time of Focused Exam: 13:02 Respiratory: No Accessory Muscle Use, No Respiratory Distress, Decreased Breath Sounds, Wheezing (expiratory throughout) Cardiovascular: Regular Rate, Rhythm, No Edema Capillary Refill: Less Than 3 Seconds Peripheral Pulses: 2+ Radial Pulses (R), 2+ Radial Pulses (L) Skin: normal color, warm/dry Lactic Acid Level Laboratory Tests Test 02/26/22 11:20 02/26/22 13:05 Lactic Acid Level 2.70 MMOL/L (0.50-2.00) *H Within 3hrs of presentation: Admin fluids, Admin 30ml/kg IBW due to BMI>30, Admin ABX, Blood cultures prior to ABX's, Focus exam, Lactate level Progress/Results/Core Measures Suspected Sepsis Recent Fever Within 48 Hours: Yes Infection Criteria Present: Suspected New Infection New/Unexplained Altered Menta: Yes Within 3hrs of presentation: Admin fluids, Admin 30ml/kg IBW due to BMI>30, Admin ABX, Blood cultures prior to ABX's, Focus exam, Lactate level SIRS Temperature: Pulse: Respiratory Rate: Laboratory Tests 02/26/22 11:20: White Blood Count 19.5H Blood Pressure / Mean: 02/26/22 11:20: Lactic Acid Level 2.70*H 02/26/22 13:05: Laboratory Tests 02/26/22 11:20: Creatinine 1.01, INR Comment 1.3, Platelet Count 231, Total Bilirubin 0.7 Results/Orders Lab Results Laboratory Tests Test 02/26/22 11:20 02/26/22 11:30 02/26/22 13:05 Range/Units White Blood Count 19.5 H 4.3-11.0 10^3/uL Red Blood Count 4.03 L 4.30-5.52 10^6/uL Hemoglobin 12.0 L 13.3-17.7 g/dL Hematocrit 38 L 40-54 % Mean Corpuscular Volume 94 80-99 fL Mean Corpuscular Hemoglobin 30 25-34 pg Mean Corpuscular Hemoglobin Concent 32 32-36 g/dL Red Cell Distribution Width 13.9 10.0-14.5 % Platelet Count 231 130-400 10^3/uL Mean Platelet Volume 10.4 9.0-12.2 fL Immature Granulocyte % (Auto) 1 % Neutrophils (%) (Auto) 87 H 42-75 % Lymphocytes (%) (Auto) 5 L 12-44 % Monocytes (%) (Auto) 7 0-12 % Eosinophils (%) (Auto) 0 0-10 % Basophils (%) (Auto) 0 0-10 % Neutrophils # (Auto) 17.0 H 1.8-7.8 10^3/uL Lymphocytes # (Auto) 0.9 L 1.0-4.0 10^3/uL Monocytes # (Auto) 1.5 H 0.0-1.0 10^3/uL Eosinophils # (Auto) 0.0 0.0-0.3 10^3/uL Basophils # (Auto) 0.0 0.0-0.1 10^3/uL Immature Granulocyte # (Auto) 0.1 0.0-0.1 10^3/uL Neutrophils % (Manual) 82 % Lymphocytes % (Manual) 6 % Monocytes % (Manual) 9 % Band Neutrophils 3 % Blood Morphology Comment NORMAL Prothrombin Time 16.8 H 12.2-14.7 SEC INR Comment 1.3 0.8-1.4 Activated Partial Thromboplast Time 40 H 24-35 SEC Sodium Level 141 135-145 MMOL/L Potassium Level 4.5 3.6-5.0 MMOL/L Chloride Level 98 98-107 MMOL/L Carbon Dioxide Level 30 21-32 MMOL/L Anion Gap 13 5-14 MMOL/L Blood Urea Nitrogen 17 7-18 MG/DL Creatinine 1.01 0.60-1.30 MG/DL Estimat Glomerular Filtration Rate 84 BUN/Creatinine Ratio 17 Glucose Level 159 H 70-105 MG/DL Lactic Acid Level 2.70 *H 0.50-2.00 MMOL/L Calcium Level 9.7 8.5-10.1 MG/DL Corrected Calcium 9.3 8.5-10.1 MG/DL Total Bilirubin 0.7 0.1-1.0 MG/DL Aspartate Amino Transf (AST/SGOT) 46 H 5-34 U/L Alanine Aminotransferase (ALT/SGPT) 32 0-55 U/L Alkaline Phosphatase 139 H 40-136 U/L Troponin I < 0.028 <0.028 NG/ML Total Protein 9.2 H 6.4-8.2 GM/DL Albumin 4.5 3.2-4.5 GM/DL Influenza Type A (RT-PCR) Not Detected Not Detecte Influenza Type B (RT-PCR) Not Detected Not Detecte SARS-CoV-2 RNA (RT-PCR) Not Detected Not Detecte Urine Color YELLOW Urine Clarity CLEAR Urine pH 6.0 5-9 Urine Specific [place] >=1.030 1.016-1.022 Urine Protein 3+ H NEGATIVE Urine Glucose (UA) NEGATIVE NEGATIVE Urine Ketones NEGATIVE NEGATIVE Urine Nitrite NEGATIVE NEGATIVE Urine Bilirubin NEGATIVE NEGATIVE Urine Urobilinogen 0.2 < = 1.0 MG/DL Urine Leukocyte Esterase NEGATIVE NEGATIVE Urine RBC (Auto) TRACE-I H NEGATIVE Urine RBC RARE /HPF Urine WBC RARE /HPF Urine Squamous Epithelial Cells RARE /HPF Urine Crystals NONE /LPF Urine Bacteria NEGATIVE /HPF Urine Casts NONE /LPF Urine Mucus NEGATIVE /LPF Urine Culture Indicated CULTURE PENDING My Orders Orders - GE LEACH APRN Cbc With Automated Diff (02/26/22 11:21) Comprehensive Metabolic Panel (02/26/22 11:21) Blood Culture (02/26/22 11:21) Sputum Culture (02/26/22 11:21) Urinalysis (02/26/22 11:21) Urine Culture (02/26/22 11:21) Protime With Inr (02/26/22 11:21) Partial Thromboplastin Time (02/26/22 11:21) Chest 1 View, Ap/Pa Only (02/26/22 11:21) Ed Iv/Invasive Line Start (02/26/22 11:21) Ed Iv/Invasive Line Start (02/26/22 11:21) Ekg Tracing (02/26/22 11:21) Troponin I Chin (02/26/22 11:21) Vital Signs Adult Sepsis Patie Q15M (02/26/22 11:21) O2 (02/26/22 11:21) Remove Rings In Anticipation O (02/26/22 11:21) Lactic Acid Analyzer (02/26/22 11:21) Ns Iv 1000 Ml (Sodium Chloride 0.9%) (02/26/22 11:30) Isolation Central Supply Req (02/26/22 11:21) Influenza A And B By Pcr (02/26/22 11:21) Covid 19 Inhouse Test (02/26/22 11:21) Manual Differential (02/26/22 11:20) Ns Iv 1000 Ml (Sodium Chloride 0.9%) (02/26/22 12:00) Morphine Er Tablet (Ms Contin Tablet) (02/26/22 12:15) Ibuprofen Tablet (Motrin Tablet) (02/26/22 12:45) Ibuprofen Tablet (Motrin Tablet) (02/26/22 12:32) Ns Iv 1000 Ml (Sodium Chloride 0.9%) (02/26/22 13:00) Ceftriaxone 1 Gm Pre-Mix (Rocephin 1 Gm (02/26/22 13:00) Azithromycin Tablet (Zithromax Tablet) (02/26/22 13:15) Ed Admission (Communication) (02/26/22 13:05) Medications Given in ED Current Medications Medications Dose Ordered Sig/Fredis Route Start Time Stop Time Status Last Admin Dose Admin Ibuprofen 800 mg ONCE ONCE PO 02/26/22 12:45 02/26/22 12:46 DC 02/26/22 12:32 800 MG Morphine Sulfate 30 mg ONCE ONCE PO 02/26/22 12:15 02/26/22 12:16 DC 02/26/22 12:29 30 MG Vital Signs/I&O 9/29/22 9/29/22 11:17 11:20 Temp 37.8 Pulse 94 Resp 26 B/P (MAP) 141/84 (103) Pulse Ox 94 O2 Delivery Nasal Cannula O2 Flow Rate 2.00 Capillary Refill : Progress Note : Progress Note Patient presents to the department for fever that started last night. Is febrile on arrival here to the department despite Tylenol being given at home. Will do sepsis rule out. 1215: Patient normally takes 30mg of Morphine at noon along with Xanax 2mg. Will go ahead and give the Morphine at this time. Will hold off on the Xanax. WBC count is elevated. UA is clear of infection. Respiratory panel is negative. Awaiting CXR. 1245: Spoke to patient and in regards to labs and Radiology. Patient would prefer to be admitted at this time.3 1302: Spoke to Dr. Pichardo in regards to patient and she accepted patient for admission. Asked to give Azithromycin 500mg while here in the department. Patient will be admitted to Med/Surg. She will put in orders. and patient u pdated on plan of care and verbalized understanding. ECG Initial ECG Impression Date: Feb 26, 2022 Initial ECG Impression Time: 11:26 Initial ECG Rate: 89 Initial ECG Rhythm: Normal Sinus Initial ECG Intervals: Normal Initial ECG Impression: Normal Diagnostic Imaging Diagonstic Imaging: Xray Plain Films/CT/US/NM/MRI: chest Comments NAME: PETEY RODRIGUEZ III MED REC#: [id number] PT STATUS: REG ER : 1960 PHYSICIAN: GE LEACH APRN ADMIT DATE: 02/26/22/ER Draft Date of Exam:02/26/22 CHEST 1 VIEW, AP/PA ONLY INDICATION: Fever AP view of the chest is obtained with comparison made study of 10/03/2021. There has been development of rounded airspace disease in left upper lobe. Also mild increase in basilar pulmonary densities which may be due to atelectasis or pneumonitis. No pneumothorax is seen. IMPRESSION: Rounded airspace disease in left upper lobe may represent round pneumonia in patient with fever. Short-term radiographic followup after treatment for pneumonia is recommended to document resolution and to exclude other underlying pathology. Dictated on workstation # [id number] Dict: 02/26/22 1236 Trans: 02/26/22 1239 [facility] [id number] Interpreted by: MIKE PERRY MD Electronically signed by: Departure Communication (Admissions) Time/Spoke to Admitting Phy: 13:[address] Pichardo on the phone Communication (PCP) 1302 Impression Primary Impression: Pneumonia Qualified Codes: J18.9 - Pneumonia, unspecified organism Disposition: ADMITTED INPATIENT Condition: Stable Admissions Decision to Admit Reason: Admit from ER (General) Decision to Admit/Date: Feb 26, 2022 Time/Decision to Admit Time: 13:02 Departure-Patient Inst. Referrals: FERNY SILVERIO MD (PCP/Family) Primary Care Physician GE LEACH APRN Feb 26, 2022 11:21
[2022-02-26] MEDS ORDERED: NS IV ONE (11:30)
[2022-02-26 11:35] LABS: BASOPHILS % (AUTO) 0 % (0-10); EOSINOPHILS % (AUTO) 0 % (0-10); HEMATOCRIT 38 % (40-54); LYMPHOCYTES # (AUTO) 0.9 10^3/uL (1.0-4.0); LYMPHOCYTES % (AUTO) 5 % (12-44); MEAN CORPUSCULAR HEMOGLOBIN 30 pg (25-34); MEAN CORPUSCULAR HGB CONC 32 g/dL (32-36); MEAN CORPUSCULAR VOLUME 94 fL (80-99); MEAN PLATELET VOLUME 10.4 fL (9.0-12.2); MONOCYTES # (AUTO) 1.5 10^3/uL (0.0-1.0); MONOCYTES % (AUTO) 7 % (0-12); NEUTROPHILS % (AUTO) 87 % (42-75); PLATELET COUNT 231 10^3/uL (130-400); WHITE BLOOD COUNT 19.5 10^3/uL (4.3-11.0)
[2022-02-26 11:46] LABS: BILIRUBIN,URINE NEGATIVE (NEGATIVE); CLARITY,URINE CLEAR; COLOR,URINE YELLOW; GLUCOSE, URINE (UA) NEGATIVE (NEGATIVE); KETONES,URINE NEGATIVE (NEGATIVE); LEUKOCYTE ESTERASE ,URINE NEGATIVE (NEGATIVE); NITRITE,URINE NEGATIVE (NEGATIVE); PROTEIN,URINE 3+ (NEGATIVE)
[2022-02-26 11:47] LABS: ALBUMIN 4.5 GM/DL (3.2-4.5); BAND NEUTROPHILS 3 %; CHLORIDE 98 MMOL/L (98-107); INR 1.3 (0.8-1.4); LYMPHOCYTES % (MANUAL) 6 %; MONOCYTES % (MANUAL) 9 %; NEUTROPHILS % (MANUAL) 82 %; POTASSIUM 4.5 MMOL/L (3.6-5.0); PROTHROMBIN TIME PATIENT 16.8 SEC (12.2-14.7); RBC MORPH NORMAL; SODIUM 141 MMOL/L (135-145)
[2022-02-26 11:49] LABS: CALCIUM 9.7 MG/DL (8.5-10.1)
[2022-02-26 11:50] LABS: GLUCOSE 159 MG/DL (70-105); TOTAL PROTEIN 9.2 GM/DL (6.4-8.2)
[2022-02-26 11:51] LABS: CARBON DIOXIDE 30 MMOL/L (21-32)
[2022-02-26 11:52] LABS: BILIRUBIN,TOTAL 0.7 MG/DL (0.1-1.0)
[2022-02-26 11:52] LABS: BACTERIA,URINE NEGATIVE /HPF; RBC,URINE RARE /HPF; SQUAMOUS EPITHELIAL CELL,UR RARE /HPF; WBC,URINE RARE /HPF
[2022-02-26 11:53] LABS: ALKALINE PHOSPHATASE 139 U/L (40-136); CREATININE SERUM 1.01 MG/DL (0.60-1.30); GFR ESTIMATED 84
[2022-02-26 11:54] LABS: BUN/CREATININE RATIO 17
[2022-02-26 11:56] LABS: ALANINE AMINOTRANSFERASE 32 U/L (0-55)
[2022-02-26] MEDS ORDERED: NS IV 1000 ML 1,000 ML IV SCH ×2 (12:00→13:00)
[2022-02-26] MEDS ORDERED: morphine ER 30 MG (MS CONTIN) TAB PO ONE (12:15)
[2022-02-26] MEDS ORDERED: IBUPROFEN 800 MG (MOTRIN) TAB PO ONE ×2 (12:32→12:45)
--- NOTE | 2022-02-26 12:39 | Diagnostic Imaging Report ---
INDICATION: Fever AP view of the chest is obtained with comparison made study of 10/03/2021. There has been development of rounded airspace disease in left upper lobe. Also mild increase in basilar pulmonary densities which may be due to atelectasis or pneumonitis. No pneumothorax is seen. IMPRESSION: Rounded airspace disease in left upper lobe may represent round pneumonia in patient with fever. Short-term radiographic followup after treatment for pneumonia is recommended to document resolution and to exclude other underlying pathology. Dictated by: Dictated on workstation # [id number]
[2022-02-26] MEDS ORDERED: cefTRIAXone 1 GM PRE-MIX 50 ML IV ONE (13:00)
[2022-02-26] MEDS ORDERED: AZITHROMYCIN 250 MG TAB (ZITHROMAX) PO ONE (13:15)
[2022-02-26 14:23] VITALS: BP 148/69
[2022-02-26 15:01] VITALS: BP 148/69
[2022-02-26] MEDS ORDERED: RT-ALBUTEROL SULF 2.5 MG/3 ML PRE-MIX VIAL INH PRN (15:15)
[2022-02-26 15:37] VITALS: BP 145/69
[2022-02-26] MEDS ORDERED: HYDR-3820 PO (15:37)
[2022-02-26] MEDS ORDERED: MELO7.5T46 PO (15:37)
[2022-02-26] MEDS ORDERED: DULA0.75 SC (15:37)
[2022-02-26] MEDS ORDERED: TMSL.4C PO (15:37)
[2022-02-26] MEDS ORDERED: ASPI-1238 PO (15:37)
[2022-02-26] MEDS ORDERED: INSU100I14 SC (15:37)
[2022-02-26] MEDS ORDERED: ALPR2TAB6 PO (15:37)
[2022-02-26] MEDS ORDERED: MORP-69 PO (15:37)
[2022-02-26] MEDS: NS IV 1000 ML 1,000 ML IV SCH (15:48)
[2022-02-26] MEDS: DOXYCYCLINE INJECTION 100 MG in NS (IVPB) 50 ML IV SCH (15:49)
[2022-02-26] MEDS: ENOXAPARIN 40 MG/0.4 ML (LOVENOX) SYR SC SCH (15:49)
[2022-02-26] MEDS ORDERED: IBUPROFEN 800 MG (MOTRIN) TAB PO PRN (16:30)
[2022-02-26] MEDS ORDERED: ACETAMINOPHEN 500 MG TAB (TYLENOL) PO PRN (16:30)
[2022-02-26] MEDS: inSUlin ASPART (NovoLOG) 1 UNIT/0.01 ML (CHARGE PER UNIT) SC SCH ×2 (17:00→20:16)
[2022-02-26 19:42] VITALS: BP 99/57
[2022-02-26 20:19] VITALS: BP 123/64
[2022-02-26] MEDS ORDERED: inSUlin ASPART (NovoLOG) 1 UNIT/0.01 ML (CHARGE PER UNIT) SC SCH (21:00)
[2022-02-26] MEDS: morphine ER 30 MG (MS CONTIN) TAB PO SCH (21:49)
[2022-02-26 23:40] VITALS: BP 110/68
[2022-02-27] MEDS: DOXYCYCLINE INJECTION 100 MG in NS (IVPB) 50 ML IV SCH (00:32)
[2022-02-27] MEDS: NS IV 1000 ML 1,000 ML IV SCH ×2 (00:33→06:07)
[2022-02-27 04:50] VITALS: BP 122/69
[2022-02-27] MEDS: inSUlin ASPART (NovoLOG) 1 UNIT/0.01 ML (CHARGE PER UNIT) SC SCH ×6 (06:08→21:15)
[2022-02-27] MEDS: morphine ER 30 MG (MS CONTIN) TAB PO SCH ×3 (06:09→21:11)
[2022-02-27 06:58] LABS: BASOPHILS % (AUTO) 0 % (0-10); EOSINOPHILS % (AUTO) 0 % (0-10); HEMATOCRIT 35 % (40-54); HEMOGLOBIN 10.8 g/dL (13.3-17.7); LYMPHOCYTES # (AUTO) 1.4 10^3/uL (1.0-4.0); LYMPHOCYTES % (AUTO) 7 % (12-44); MEAN CORPUSCULAR HEMOGLOBIN 30 pg (25-34); MEAN CORPUSCULAR HGB CONC 31 g/dL (32-36); MEAN CORPUSCULAR VOLUME 96 fL (80-99); MONOCYTES # (AUTO) 1.1 10^3/uL (0.0-1.0); MONOCYTES % (AUTO) 6 % (0-12); NEUTROPHILS % (AUTO) 86 % (42-75); PLATELET COUNT 172 10^3/uL (130-400); WHITE BLOOD COUNT 19.8 10^3/uL (4.3-11.0)
[2022-02-27 07:19] LABS: ALBUMIN 3.8 GM/DL (3.2-4.5); POTASSIUM 3.9 MMOL/L (3.6-5.0)
[2022-02-27 07:20] LABS: CALCIUM 8.5 MG/DL (8.5-10.1)
[2022-02-27 07:21] LABS: TOTAL PROTEIN 7.9 GM/DL (6.4-8.2)
[2022-02-27 07:23] LABS: BILIRUBIN,TOTAL 0.5 MG/DL (0.1-1.0)
[2022-02-27 07:25] LABS: CREATININE SERUM 0.88 MG/DL (0.60-1.30)
[2022-02-27 08:47] VITALS: BP 117/70
[2022-02-27] MEDS ORDERED: NON-FORMULARY MEDICATION 1 EA EA (Dulaglutide (Trulicity) 0.75 MG) SC SCH (11:45)
[2022-02-27] MEDS ORDERED: ALPRAZolam 1 MG (XANAX) TAB PO SCH (12:00)
--- NOTE | 2022-02-27 12:13 | History & Physical-Hospitalist ---
DERRICK FATIMA 02/27/22 1213: History of Present Illness HPI/Chief Complaint Patient is a 61 year old male with a past medical history of COPD, HTN, DM, and psoriasis presented to the ER last night (02-27-2022) with complaints of fever and altered mental status. Patients reported a temperature of 104 at home, and took a Tylenol. He denied any sick contacts or COVID exposure. Denied any headache or body aches. Patient normally takes morphine at home for his chronic back pain and was given a dose in the ER. He was found in the ER to have an elevated WBC of 19.5 with a chest x-ray showing rounded airspace dense disease in left upper lobe. He was started on azithromycin 500 mg. Lactic acid was elevated at 2.22 but has returned to normal. As of today 02-27-2022 patient was much improved in his mental status per his . He is alert and orientated X3. His bowels and bladder are moving appropriately, eating well. Denies any SOB, but is currently on 2.5 liters nasal cannula. Patient denies any pain and is in good spirits this morning. Influenza and COVID were both negative. Source: patient, RN/MD Date Seen 02/27/22 Time Seen by a Provider: 12:13 Attending Physician Max Rodriguez MD PCP Admitting Physician: Smita Pichardo MD Attending Physician: Jazlyn Frazier DO Referring Physician Date of Admission Feb 26, 2022 at 13:07 Home Medications & Allergies Home Medications Reviewed patient Home Medication Reconciliation performed by pharmacy medication reconciliations service desk technician and/or nursing. Patients Allergies have been reviewed. Allergies Allergies Coded Allergies No Known Drug Allergies (Unverified12/27/19) Past Lsmubrk-Qdzdvx-Wnorpe Hx Patient Social History Marrital Status: Tobacco Use?: No Smoking Status: Former Smoker Use of E-Cig and/or Vaping dev: Yes E-Cig or Vaping type used: Nicotine Use of E-Cig and/or Vaping Rodolfo: Current Someday User Substance use?: No Alcohol Use?: No Pt feels they are or have been: No Immunizations Up To Date Date of Influenza Vaccine: Feb 19, 2022 First/Initial COVID19 Vaccinat: july 2020 Second COVID19 Vaccination Wiley: august 2020 Tetanus Booster (TDap): Unknown Date of Pneumonia Vaccine: Aug 03, 2011 Seasonal Allergies Seasonal Allergies: Yes Current Status Advance Directives: Yes Advance Directive Location: Home Communicates: Verbally Primary Language: Barbadian Preferred Spoken Language: Barbadian Is interpretation needed?: No Sensory deficits: Vision impairment Implanted or Applied Medical D: Orthopedic hardware, Port-a-cath Past Medical History Surgeries: Amputation, Orthopedic, Renal COPD Currently Using CPAP: No Currently Using BIPAP: No High Cholesterol, Hypertension Neuropathy Sexually Transmitted Disease: No Kidney Stones, Renal Failure Degenerate Disk Disease, Arthritis, Back Injury, Chronic Back Pain Diabetes, Insulin dep Loss of Vision: Denies Hearing Impairment: Denies Sleep Difficulties, Anxiety Eczema, Psoriasis Blood Disorders: No Adverse Reaction/Blood Tranf: No (N/A) Family Medical History Reviewed Nursing Family Hx Review of Systems Constitutional: No chills, No fever; weakness EENTM: dental problems; No hearing loss Respiratory: No short of breath; wheezing Cardiovascular: No chest pain, No edema, No palpitations Gastrointestinal: No abdominal pain, No jaundice Genitourinary: No decreased output, No dysuria Musculoskeletal: back pain, muscle stiffness Skin: other (Extensive systemic psoriasis ) Psychiatric/Neurological: Denies Depressed, Denies Emotional Problems, Denies Headache Physical Exam Physical Exam Vital Signs Vital Signs - First Documented 02/26/22 02/26/22 11:17 11:20 Temp 37.8 Pulse 94 Resp 26 B/P (MAP) 141/84 (103) Pulse Ox 94 O2 Delivery Nasal Cannula O2 Flow Rate 2.00 Capillary Refill : Less Than 3 Seconds Height, Weight, BMI Height: 6'1.00" Weight: 264lbs. 0.0oz. 119.288541op; 35.51 BMI Method:Stated General Appearance: No Apparent Distress, WD/WN, Obese HEENT: PERRL/EOMI, Moist Mucous Membranes Neck: Full Range of Motion, Normal Inspection, Supple Respiratory: Chest Non Tender; No Lungs Clear; No Accessory Muscle Use, Wheezing (upper left lobe expritory wheeze ) Cardiovascular: Regular Rate, Rhythm, No Edema, No Gallop Gastrointestinal: Non Tender, Soft Rectal: Deferred Back: Normal Inspection, Vertebral Tenderness Extremity: Normal Capillary Refill, Normal Inspection Neurologic/Psychiatric: Alert, Oriented x3, Normal Mood/Affect Skin: Normal Color, Warm/Dry, Other (Extensive systemic psoraiasis ) Lymphatic: No Adenopathy Results Results/Procedures Labs Laboratory Tests 02/26/22 11:20 02/27/22 06:43 Patient resulted labs reviewed. Assessment/Plan Assessment and Plan Upper Left Lobe Pneumonia Administered Azithromycin Start Ceftriaxone and Doxycycline Continue Supportive Care Repeat Chest X-ray Order PT and OT Altered Mental Status-Improved per Baseline unknown Alert and orientated X3 Continue to monitor Chronic Back Pain/Arthritis Restart morphine Monitor pain COPD Continue supportive care HTN Restart home amlodipine Monitor BP Hyperlipidemia Restart at home atorvastatin DM Continue sliding scale insulin Monitor Glucose Anxiety Administer Alprazolam and needed Psoriasis JAZLYN FRAZIER DO 02/28/22 0557: History of Present Illness HPI/Chief Complaint CC: Delirium with PNA HPI: This is a 61yoWM w/complex PMH who presented to the ER with confusion and found to have PNA which failed PO abx. Today he is much better. IVF will be DC and patient wants to go home but will wait till tomorrow. Source: patient, family, RN/MD Past Xmgmfys-Dmxafq-Hjghqb Hx Patient Social History Marrital Status: Employed/Student: unemployed Review of Systems Constitutional: see HPI Physical Exam Physical Exam General Appearance: No Apparent Distress, Chronically ill, Obese Respiratory: Decreased Breath Sounds, Wheezing (upper left lobe expritory wheeze ) Assessment/Plan Admission Diagnosis PNA DM HTN Chronic debility Admission Status: Observation Supervisory-Addendum Brief Verification & Attestation Participated in pt care: history, MDM, physical Personally performed: exam, history, MDM, supervision of care Care discussed with: Medical Student Procedures: n/a Results interpretation: Verified all documentation Verification and Attestation of Medical Student E/M Service A medical student performed and documented this service in my presence. I reviewed and verified all information documented by the medical student and made modifications to such information, when appropriate. I personally performed the physical exam and medical decision making. Jazlyn Frazier Feb 28, 2022,05:58 DERRICK FATIMA Feb 27, 2022 12:13 JAZLYN FRAZIER DO Feb 28, 2022 05:57
[2022-02-27 12:21] VITALS: BP 149/69
[2022-02-27] MEDS: ENOXAPARIN 40 MG/0.4 ML (LOVENOX) SYR SC SCH (12:40)
[2022-02-27] MEDS ORDERED: morphine ER 30 MG (MS CONTIN) TAB PO SCH (13:00)
[2022-02-27] MEDS ORDERED: cefTRIAXone 1 GM PRE-MIX 50 ML IV SCH (13:15)
--- NOTE | 2022-02-27 14:24 | Physical Therapy Evaluation ---
PT Evaluation-General Medical Diagnosis Admission Date Feb 26, 2022 at 13:07 Medical Diagnosis: pneumonia Onset Date: Feb 26, 2022 Therapy Diagnosis Therapy Diagnosis: impaired mobility Height/Weight Height (Feet): 6 Height (Inches): 1.00 Weight (Pounds): 264 Weight (Ounces): 0.0 Precautions Precautions/Isolations: Fall Prevention Referral Physician: Jazlyn Nixon DO Reason for Referral: Evaluation/Treatment Medical History History of Falls (past yr): Unknown Prior Surgery (last 100 days): Unknown Additional Medical History Past Medical History Surgeries: Amputation, Orthopedic, Renal COPD Currently Using CPAP: No Currently Using BIPAP: No High Cholesterol, Hypertension Neuropathy Sexually Transmitted Disease: No Kidney Stones, Renal Failure Degenerate Disk Disease, Arthritis, Back Injury, Chronic Back Pain Diabetes, Insulin dep Loss of Vision: Denies Hearing Impairment: Denies Sleep Difficulties, Anxiety Eczema, Psoriasis Blood Disorders: No Adverse Reaction/Blood Tranf: No (N/A) Reviewed History: Yes Social History Home: Single Level Current Living Status: Spouse Entry Into Home: Ramp Prior Prior Level of Function SCALE: Activities may be completed with or without assistive devices. 4-Akqukhugue-lvndaut completes the activity by him/herself with no assistance from a helper. 5-Set-up or Clean-up Assistance-helper sets up or cleans up; patient completes activity. [place] assists only prior to or following the activity. 4-Supervision or Touching Assistance-helper provides verbal cues and/or touching/steadying and/or contact guard assistance as patient completes activity. Assistance may be provided throughout the activity or intermittently. 3-Partial/Moderate Assistance-helper does LESS THAN HALF the effort. [place] lifts, holds or supports trunk or limbs, but provides less than half the effort. 2-Substantial/Maximal Assistance-helper does MORE THAN HALF the effort. [place] lifts or holds trunk or limbs and provides more than half the effort. 0-Rgmejrppg-vglvvv does ALL the effort. Patient does none of the effort to complete the activity. Or, the assistance of 2 or more helpers is required for the patient to complete the activity. If activity was not attempted, code reason: 7-Patient Refused. 9-Not Applicable-not attempted and the patient did not perform the activity before the current illness, exacerbation or injury. 10-Not Attempted due to Environmental Limitations-(lack of equipment, weather restraints, etc.). 88-Not Attempted due to Medical Conditions or Safety Concerns. Bed Mobility: 6 Transfers (B,C,W/C): 6 Gait: 6 Indoor Mobility (Ambulation): Independent uses SPC PT Evaluation-Current Subjective Patient in recliner pre tx, agrees to PT, has what he says is his normal low back pain. Pt/Family Goals to be independent at home Objective Patient Orientation: Person, Place, Situation Attachments: IV ROM/Strength ROM Lower Extremities WNL Strength Lower Extremities grossly 4+/5 BLE Sensory Vision: Wears Glasses Hearing: Functional Sensation Right Lower Extremit: Impaired Sensation Left Lower Extremity: Impaired Transfers Sit to Stand (QC): 6 Chair/Dxg-ak-Xzdhj Xfer(QC): 6 Gait Does the Patient Walk?: Yes Mode of Locomotion: Walk Anticipated Mode of Locomotion: Walk Walk 10 feet (QC): 6 Walk 50 ft with 2 Turns(QC): 6 Walk 150 ft (QC): 6 Distance: 200' Gait Assistive Device: Cane Single Point Comments/Gait Description Patient was able to push his own IV pole in one hand and use his SPC in the other and ambulate independently. Balance Sitting Static: Normal Sitting Dynamic: Normal Standing Static: Good Standing Dynamic: Good Assessment/Needs Patient in recliner post tx with nurse call, phone, tray, all needs met. Patient ambulates independently using his SPC, will DC from therapy services at this time, encouraged patient to get up and ambulate on his own several times a day to continue strengthening. Rehab Potential: Good PT Plan Treatment/Plan Treatment Plan: Discontinue PT Treatment Duration: Feb 27, 2022 Frequency: Safety Risks/Education Patient Education: Gait Training, Transfer Techniques, Correct Positioning, Safety Issues Teaching Recipient: Patient Teaching Methods: Demonstration, Discussion Response to Teaching: Verbalize Understanding, Return Demonstration, Reinforcement Needed Discharge Recommendations Plan DC Therapy Discharge Recommendati: Home & Family, Post Acute PT Time/GCodes Time In: 1401 Time Out: 1410 Total Billed Treatment Time: 9 Total Billed Treatment 1 visit DESHAUN 9' SUNNY KAM PT Feb 27, 2022 14:24
--- NOTE | 2022-02-27 14:42 | Diagnostic Imaging Report ---
INDICATION: Pneumonia. COMPARISON: 02/26/2022 FINDINGS: 2 frontal radiographic views of the chest were obtained and again show consolidative opacity of the left upper lung. This may be slightly more prominent when compared to one day prior. Right lung remains clear. No large effusion or pneumothorax is seen on either side. Cardiac silhouette and pulmonary vasculature are within normal limits. Osseous structures show no gross acute abnormalities. IMPRESSION: 1. Findings consistent with probable pneumonia of the left upper lung. Again, this may be slightly more prominent when compared to prior exam. Continued follow-up to resolution is advised. Dictated by: Dictated on workstation # [id number]
--- NOTE | 2022-02-27 15:10 | Occupational Therapy Eval ---
OT Evaluation-General/PLF Medical Diagnosis Admission Date Feb 26, 2022 at 13:07 Medical Diagnosis: pneumonia Onset Date: Feb 26, 2022 Therapy Diagnosis Therapy Diagnosis: decreased ADL status Height/Weight Height (Feet): 6 Height (Inches): 1.00 Weight (Pounds): 264 Weight (Ounces): 0.0 Precautions Precautions/Isolations: Fall Prevention Referral Physician: Jazlyn Nixon DO Referral Reason: Evaluation/Treatment Medical History Additional Medical History Surgeries: Amputation, Orthopedic, Renal COPD Currently Using CPAP: No Currently Using BIPAP: No High Cholesterol, Hypertension Neuropathy Sexually Transmitted Disease: No Kidney Stones, Renal Failure Degenerate Disk Disease, Arthritis, Back Injury, Chronic Back Pain Diabetes, Insulin dep Loss of Vision: Denies Hearing Impairment: Denies Sleep Difficulties, Anxiety Eczema, Psoriasis Blood Disorders: No Adverse Reaction/Blood Tranf: No (N/A) Reviewed History: Yes Current History ED with fever and AMS. Social History Home: Single Level Current Living Status: Spouse Entry Into Home: Ramp ADL-Prior Level of Function SCALE: Activities may be completed with or without assistive devices. 4-Twvjkykamf-yfjrrsi completes the activity by him/herself with no assistance from a helper. 5-Set-up or Clean-up Assistance-helper sets up or cleans up; patient completes activity. [place] assists only prior to or following the activity. 4-Supervision or Touching Assistance-helper provides verbal cues and/or touching/steadying and/or contact guard assistance as patient completes activity. Assistance may be provided throughout the activity or intermittently. 3-Partial/Moderate Assistance-helper does LESS THAN HALF the effort. [place] lifts, holds or supports trunk or limbs, but provides less than half the effort. 2-Substantial/Maximal Assistance-helper does MORE THAN HALF the effort. [place] lifts or holds trunk or limbs and provides more than half the effort. 8-Ihxlwaqsc-cfittu does ALL the effort. Patient does none of the effort to complete the activity. Or, the assistance of 2 or more helpers is required for the patient to complete the activity. If activity was not attempted, code reason: 7-Patient Refused. 9-Not Applicable-not attempted and the patient did not perform the activity before the current illness, exacerbation or injury. 10-Not Attempted due to Environmental Limitations-(lack of equipment, weather restraints, etc.). 88-Not Attempted due to Medical Conditions or Safety Concerns. ADL PLOF Comments Pt reports IND with ADLs and functional mobility using SPC at PLOF. Pt has some unsteadiness at PLOF, and requires assistance with sock due to [place] foot. Self Care: Independent Functional Cognition: Independent OT Current Status Subjective Pt in recliner, family present. Agreeable to OT Tx. Mental Status/Objective Patient Orientation: Normal For Age Current Upper Extremity ROM WFL Upper Extremity Strength WFL ADL-Treatment Eating (QC): 6 On/Off Footwear (QC): 3 (Min A donning R sock due to [place] foot. This is pt's baseline.) Toileting Hygiene (QC): 6 (assistance only with IV pole per pt and nursing staff.) Other Treatments Pt in recliner, demo'd ability to complete footwear, then stood from chair using SPC independently. Pt and family report no concerns with ADLs upon discharging and feel like pt is at his PLOF. Pt declines further OT services at this time. Pt also independent with ambulation per PT, 200' with SPC. Post tx, pt in recliner, call light in reach and all needs met. Education OT Patient Education: Correct positioning, Modified ADL techniques, Progress toward Goal/Update tx plan, Purpose of tx/functional activities, Rehab process Teaching Recipient: Patient Teaching Methods: Discussion Response to Teaching: Verbalize Understanding OT Bank Representative Goals Intermediate Goals 1=Demonstrate adherence to instructed precautions during ADL tasks. 2=Patient will verbalize/demonstrate understanding of assistive devices/modifications for ADL. 3=Patient will improve strength/tolerance for activity to enable patient to perform ADL's. OT Education/Plan Problem List/Assessment Assessment: No Skilled OT Needs ID'd No skilled OT services indicated at this time, as pt is at his PLOF. D/C from OT. Discharge Recommendations Plan/Recommendations: Discharge/Goals Met Treatment Plan/Plan of Care Patient would benefit from OT for education, treatment and training to promote independence in ADL's, mobility, safety and/or upper extremity function for ADL's. Plan of Care: ADL Retraining, Functional Mobility Treatment Duration: Feb 27, 2022 Frequency: 1 time per week (eval only) Rehab Potential: Good Time/GCodes Start Time: 13:43 Stop Time: 13:54 Total Time Billed (hr/min): 11 Billed Treatment Time 1, ELBERT CASTILLO OT Feb 27, 2022 15:10
[2022-02-27 15:54] VITALS: BP 134/71
[2022-02-27] MEDS: DOXYCYCLINE 100 MG (VIBRAMYCIN) TABLET PO SCH (16:36)
[2022-02-27 20:21] VITALS: BP 154/70
[2022-02-27] MEDS ORDERED: MIRTAZAPINE 15 MG (REMERON) TAB PO SCH (21:00)
[2022-02-27] MEDS ORDERED: amLODIPine 10 MG (NORVASC) TAB PO SCH (21:00)
[2022-02-27] MEDS ORDERED: ASPIRIN E.C. 81 MG (ECOTRIN) TAB PO SCH (21:00)
[2022-02-27] MEDS ORDERED: TAMSULOSIN 0.4 MG (FLOMAX) CAP PO SCH (21:00)
[2022-02-27] MEDS: PREGABALIN 75 MG (LYRICA) CAP PO SCH (21:10)
[2022-02-27] MEDS: ALPRAZolam 1 MG (XANAX) TAB PO SCH (21:11)
[2022-02-27 23:49] VITALS: BP 134/65
[2022-02-28 03:55] VITALS: BP 120/60
[2022-02-28] MEDS: inSUlin ASPART (NovoLOG) 1 UNIT/0.01 ML (CHARGE PER UNIT) SC SCH ×2 (05:53→11:48)
[2022-02-28] MEDS: DOXYCYCLINE 100 MG (VIBRAMYCIN) TABLET PO SCH (06:16)
[2022-02-28] MEDS ORDERED: inSUlin ASPART (NovoLOG) 1 UNIT/0.01 ML (CHARGE PER UNIT) SC SCH (07:00)
[2022-02-28 07:37] VITALS: BP 147/70
[2022-02-28 08:53] LABS: BASOPHILS % (AUTO) 0 % (0-10); EOSINOPHILS # (AUTO) 0.1 10^3/uL (0.0-0.3); EOSINOPHILS % (AUTO) 1 % (0-10); HEMATOCRIT 35 % (40-54); HEMOGLOBIN 11.1 g/dL (13.3-17.7); LYMPHOCYTES % (AUTO) 9 % (12-44); MEAN CORPUSCULAR HEMOGLOBIN 30 pg (25-34); MEAN CORPUSCULAR HGB CONC 32 g/dL (32-36); MEAN CORPUSCULAR VOLUME 94 fL (80-99); MEAN PLATELET VOLUME 10.3 fL (9.0-12.2); MONOCYTES # (AUTO) 0.7 10^3/uL (0.0-1.0); MONOCYTES % (AUTO) 6 % (0-12); NEUTROPHILS # (AUTO) 9.3 10^3/uL (1.8-7.8); NEUTROPHILS % (AUTO) 83 % (42-75); PLATELET COUNT 176 10^3/uL (130-400); WHITE BLOOD COUNT 11.1 10^3/uL (4.3-11.0)
[2022-02-28] MEDS: morphine ER 30 MG (MS CONTIN) TAB PO SCH (08:54)
[2022-02-28] MEDS: PREGABALIN 75 MG (LYRICA) CAP PO SCH (08:54)
[2022-02-28] MEDS: ALPRAZolam 1 MG (XANAX) TAB PO SCH (08:55)
[2022-02-28] MEDS ORDERED: MELOXICAM 7.5 MG (MOBIC) TABLET PO SCH (09:00)
[2022-02-28 09:08] LABS: BILIRUBIN,TOTAL 0.4 MG/DL (0.1-1.0); CALCIUM 9.7 MG/DL (8.5-10.1); CREATININE SERUM 0.8 MG/DL (0.60-1.30); POTASSIUM 3.6 MMOL/L (3.6-5.0); TOTAL PROTEIN 8.6 GM/DL (6.4-8.2)
[2022-02-28] MEDS ORDERED: INSU200I4 SQ (11:43)
[2022-02-28] MEDS ORDERED: CEFD300C3 PO (11:43)
[2022-02-28] MEDS ORDERED: INSU100I14 SC (11:43)
[2022-02-28] MEDS ORDERED: DOXY100T2 PO (11:43)
--- NOTE | 2022-02-28 11:45 | Discharge Summary ---
Discharge Summary Hospital Course Was the Problem List Reviewed?: Yes Problems/Dx: (1) Pneumonia Qualifiers: Qualified Codes: J18.9 - Pneumonia, unspecified organism (2) Fever Status: Acute Hospital Course Date of Admission: Feb 26, 2022 at 13:07 Admission Diagnosis : Family Physician/Provider: Max Rodriguez MD Date of Discharge: 02/28/22 Discharge Diagnosis: PNA. AMS. sepsis Hospital Course: Brief course after he was admitted from ER after failing PO abx from outpatient. Rocephin and Doxy maintained and wbc improved to near normal and patient was DC in improved condition on lower than ordered insulin due to hypoglycemia. Labs and Pending Lab Test: Laboratory Tests 02/27/22 15:58: Glucometer 140H 02/27/22 20:19: Glucometer 94 02/28/22 05:49: Glucometer 111H 02/28/22 08:42: White Blood Count 11.1H, Red Blood Count 3.71L, Hemoglobin 11.1L, Hematocrit 35L , Mean Corpuscular Volume 94, Mean Corpuscular Hemoglobin 30, Mean Corpuscular Hemoglobin Concent 32, Red Cell Distribution Width 14.0, Platelet Count 176, Mean Platelet Volume 10.3, Immature Granulocyte % (Auto) 1, Neutrophils (%) (Auto) 83H, Lymphocytes (%) (Auto) 9L, Monocytes (%) (Auto) 6, Eosinophils (%) (Auto) 1, Basophils (%) (Auto) 0, Neutrophils # (Auto) 9.3H, Lymphocytes # (Auto) 1.0, Monocytes # (Auto) 0.7, Eosinophils # (Auto) 0.1, Basophils # (Auto) 0.0, Immature Granulocyte # (Auto) 0.1, Sodium Level 142, Potassium Level 3.6, Chloride Level 105, Carbon Dioxide Level 24, Anion Gap 13, Blood Urea Nitrogen 17, Creatinine 0.80, Estimat Glomerular Filtration Rate 99, BUN/Creatinine Ratio 21, Glucose Level 191H, Calcium Level 9.7, Corrected Calcium 9.7, Total Bilirubin 0.4, Aspartate Amino Transf (AST/SGOT) 29, Alanine Aminotransferase (ALT/SGPT) 28, Alkaline Phosphatase 93, Total Protein 8.6H, Albumin 4.0 02/28/22 10:07: Glucometer 262H Microbiology 02/26/22 Blood Culture - Preliminary, Resulted No growth 02/26/22 Urine Culture - Final, Complete NO GROWTH Home Meds Active Reported Aspirin EC (Aspirin) 81 Mg Tablet.dr 81 Mg PO HS Morphine Sulfate ER (Morphine Sulfate) 30 Mg Tablet.er 30 Mg PO TID Flomax (Tamsulosin HCl) 0.4 Mg Cap 0.4 Mg PO HS Trulicity (Dulaglutide) 0.75 Mg/0.5 Ml Pen.injctr 0.75 Mg SC WED Hydrocodone-Acetamin 10-325 mg (Hydrocodone/Acetaminophen) 10 Mg-325 Mg Tablet 1 Ea PO Q6H PRN Alprazolam 2 Mg Tablet 2 Mg PO 1200 Novolog Flexpen (Insulin Aspart) 100 Unit/Ml (3 Ml) Solution 40 Units SC AC Meloxicam 7.5 Mg Tablet 7.5 Mg PO DAILY Pregabalin 225 Mg Capsule 225 Mg PO BID Alprazolam 2 Mg Tablet 1 Mg PO BID TAKES OF A 2MG Citalopram HBr (Citalopram Hydrobromide) 40 Mg Tablet 40 Mg PO DAILY Tresiba Flextouch U-200 (Insulin Degludec) 200 Unit/Ml (3 Ml) Insuln.pen 190 Unit SQ HS Mirtazapine 30 Mg Tablet 30 Mg PO HS Atorvastatin Calcium 40 Mg Tablet 40 Mg PO HS Amlodipine Besylate 10 Mg Tablet 10 Mg PO HS Assessment/Pt Instructions PCP 1 week Discharge Planning: <30 minutes discharge planning Discharge Physical Examination Vital Signs Vital Signs Date Time Temp Pulse Resp B/P (MAP) Pulse Ox O2 Delivery O2 Flow Rate FiO2 02/28/22 07:46 93 Room Air 0.00 02/28/22 07:37 36.9 68 18 147/70 (95) General Appearance: No Apparent Distress, WD/WN Respiratory: Chest Non Tender, Lungs Clear, Normal Breath Sounds, No Accessory Muscle Use, No Respiratory Distress, Decreased Breath Sounds Cardiovascular: Regular Rate, Rhythm, No Edema, No Gallop, No JVD, No Murmur, Normal Peripheral Pulses Neurologic/Psychiatric: Alert, Oriented x3, No Motor/Sensory Deficits, Normal Mood/Affect Allergies: Coded Allergies: No Known Drug Allergies (Unverified , 12/27/19) Discharge Summary Date of Admission Feb 26, 2022 at 13:07 Date of Discharge Discharge Date: Feb 28, 2022 Admission Diagnosis PNA DM HTN Chronic debility MICHAEL FRAZIER DO Feb 28, 2022 11:45
[2022-02-28 12:05] VITALS: BP 142/68
[2022-02-28 13:26] VITALS: BP 142/68
== END 2022-02-28 11:42 | disposition home or self-care (01) ==
LOC: EDUNIT# 11:15 → ER 11:16 → 4TH 13:07 → UNDOADMOB 13:07 → 4TH 14:15 → UNDODISOB 02-28 11:42
PROVIDERS: ADMIT Family Medicine; ATTEND Internal Medicine
DX: J18.9 Pneumonia, unspecified organism (principal); R41.82 Altered mental status, unspecified; J44.9 Chronic obstructive pulmonary disease, unspecified; I10 Essential (primary) hypertension; E78.5 Hyperlipidemia, unspecified; Z79.899 Other long term (current) drug therapy; E11.9 Type 2 diabetes mellitus without complications; F41.9 Anxiety disorder, unspecified; L40.9 Psoriasis, unspecified; G89.29 Other chronic pain; Z20.828 Contact with and (suspected) exposure to other viral communicable diseases; Z87.891 Personal history of nicotine dependence
CPT/HCPCS: 71045 ×2; 80053 ×3; 81000; 82947 ×3; 83605; 84484; 85007; 85025 ×2; 85027; 85610; 85730; 87040; 87088; 87636; 93005; 94760 ×3; 96361 ×2; 96366; 96372 ×2; 96374; 96375; 97110; 97162; 97165; 99284; G0378; 36415

== ENCOUNTER → 2022-03-09 | Outpatient (CLI) | payer MEDICARE ==
[~2022-03-09] MED LIST changes: +ASPI-1238 PO; +CEFD300C3 PO; +DULA0.75 SC; +HYDR-3820 PO; +INSU100I14 SC; +MORP-69 PO; +TMSL.4C PO
== END ==
LOC: CARD 13:03
PROVIDERS: ATTEND Internal Medicine Cardiovascular Disease
DX: I25.10 Atherosclerotic heart disease of native coronary artery without angina pectoris (principal); I51.7 Cardiomegaly
CPT/HCPCS: 93306

== ENCOUNTER → 2022-03-12 | Outpatient (CLI) | payer MEDICARE ==
[~2022-03-12] VITALS: Ht 185 cm; Wt 100.0 kg
[~2022-03-12] MED LIST changes: +CATHETER FLUSH 10 ML SYR IVP PRN; +REGADENOSON 0.4 MG/5 ML SYR (LEXISCAN) IV ONE
[2022-03-12 09:36] VITALS: BP 204/94
--- NOTE | 2022-03-13 08:56 | NUCLEAR STRESS TEST ---
REGADENOSON NUCLEAR STRESS Date of procedure: 03/12/2022. Primary care provider: Max Rodriguez MD Admitting physician: Max Carranza Jr., MD. INDICATION: Coronary artery disease without angina. BASELINE ELECTROCARDIOGRAM: Sinus rhythm, unremarkable tracing. STRESS TEST PROCEDURE: The patient was administered 0.4 mg of intravenous Regadenoson. The resting heart rate was 70 bpm and the peak heart rate was 90 bpm. The resting blood pressure was 204/94 mmHg and the minimum blood pressure was 188/86 mmHg. This represents a normal heart rate and a normal blood pressure response to Regadenoson with resting hypertension. The test was stopped due to the protocol. There was no chest discomfort during the test. There were no arrhythmias during the test. There were no significant stress induced electrocardiogram changes. NUCLEAR PROCEDURE: The patient was administered 10.8 mCi of intravenous technetium 99m Tetrofosmin at rest for the rest images. The patient was subsequently administered 32 mCi of intravenous technetium 99m Tetrofosmin at peak stress for the stress images. Following an appropriate wait after each injection, imaging was obtained. The images were subsequently processed and reformatted in the usual views. Gated imaging was obtained. The image quality was adequate with a moderate degree of gastrointestinal attenuation artifact. CT attenuation correction was used as a adjunct to standard imaging. Both the corrected and uncorrected images were reviewed for interpretation. NUCLEAR RESULTS: There was a small, mild intensity, reversible apical defect with a small amount of inducible ischemia with a summed stress score of 3 and a summed difference score of 3. There was normal left ventricular chamber size with an end-diastolic volume of 131 mL and an end-systolic volume of 50 mL. There was no evidence of transient ischemic dilatation. The TID ratio was 0.86. There was normal wall motion in all segments with a calculated ejection fraction of 62%. IMPRESSION: 1. Normal heart rate and blood pressure response to regadenoson with resting hypertension. 2. There was no chest discomfort, arrhythmias, or electrocardiogram changes during the test. 3. There was a small, mild intensity, reversible apical defect with a small david unt of inducible ischemia with a summed stress score of 3 and a summed difference score of 3. 4. There was normal wall motion in all segments with a calculated ejection fraction of 62%. 5. This is an abnormal result although represents a low risk for possible future coronary ischemic events. Certain portions of this document may have been dictated utilizing voice recognition technology. Inherent to this technology, typographical and grammatical errors may exist. As much as I am diligent to identify and correct these mistakes, some errors may remain in the document. MAX CARRANZA JR, MD Mar 13, 2022 08:56
== END ==
LOC: CARD 07:47
PROVIDERS: ATTEND Internal Medicine Cardiovascular Disease
DX: I25.10 Atherosclerotic heart disease of native coronary artery without angina pectoris (principal)
CPT/HCPCS: 78452; 93017; A9502

== ENCOUNTER → 2022-03-17 | Outpatient (CLI) | payer MEDICARE ==
[~2022-03-17] MED LIST changes: -CATHETER FLUSH 10 ML SYR IVP PRN; -REGADENOSON 0.4 MG/5 ML SYR (LEXISCAN) IV ONE
[2022-03-17 12:00] LABS: TRIGLYCERIDES 151 MG/DL (<150); VLDL CHOLESTEROL 30 MG/DL (5-40)
[2022-03-17 12:05] LABS: CHOLESTEROL 111 MG/DL (< 200); HDL CHOLESTEROL 26 MG/DL (40-60)
== END ==
LOC: LAB
PROVIDERS: ATTEND Internal Medicine Cardiovascular Disease
DX: E78.2 Mixed hyperlipidemia (principal)
CPT/HCPCS: 36415; 80061

== ENCOUNTER → 2022-03-30 | Outpatient (CLI) | payer MEDICARE ==
[~2022-03-30] VITALS: Ht 185 cm; Wt 124.0 kg
[2022-03-30 11:04] VITALS: BP 153/64
== END ==
LOC: SDC 10:26
PROVIDERS: ATTEND Internal Medicine
DX: Z45.2 Encounter for adjustment and management of vascular access device (principal)
CPT/HCPCS: 96523

== ENCOUNTER → 2022-04-29 | Outpatient (CLI) | payer MEDICARE ==
[~2022-04-29] VITALS: Ht 185 cm; Wt 124.0 kg
[2022-04-29 13:38] VITALS: BP 154/63
== END ==
LOC: SDC 13:01
PROVIDERS: ATTEND Allergy & Immunology Allergy
DX: Z45.2 Encounter for adjustment and management of vascular access device (principal)
CPT/HCPCS: 96523

== ENCOUNTER → 2022-05-28 | Outpatient (CLI) | payer MEDICARE ==
[~2022-05-28] VITALS: Wt 124.0 kg
[2022-05-28 13:38] VITALS: BP 120/60
== END ==
LOC: SDC 12:55
PROVIDERS: ATTEND Internal Medicine
DX: I73.9 Peripheral vascular disease, unspecified (principal)
CPT/HCPCS: 96523

== ENCOUNTER 2022-07-03 11:34 | Outpatient (CLI) | payer MEDICARE ==
[2022-07-03 11:45] VITALS: BP 142/63
== END 2022-07-03 12:01 | disposition home or self-care (01) ==
LOC: SDC 11:34
PROVIDERS: ATTEND Internal Medicine
DX: I73.9 Peripheral vascular disease, unspecified (principal)
CPT/HCPCS: 96523

== ENCOUNTER → 2022-08-05 | Outpatient (CLI) | payer MEDICARE ==
[2022-08-05 10:55] VITALS: BP 152/72
== END ==
LOC: SDC 10:18
PROVIDERS: ATTEND Internal Medicine
DX: I73.9 Peripheral vascular disease, unspecified (principal)
CPT/HCPCS: 96523

== ENCOUNTER 2022-08-19 05:36 | Outpatient (CLI) | payer MEDICARE ==
[~2022-08-19] VITALS: Ht 185.4 cm; Wt 133.5 kg
[2022-08-19] MEDS ORDERED: FENT1PAT9 TD (10:29)
[2022-08-19] MEDS ORDERED: GEMF600T88 PO (10:29)
== END 2022-08-19 10:30 | disposition home or self-care (01) ==
LOC: PREOP 05:36
PROVIDERS: ATTEND Surgery
DX: Z01.818 Encounter for other preprocedural examination (principal)

== ENCOUNTER 2022-08-24 12:27 | Emergency (ER) | payer MEDICARE ==
[~2022-08-24] VITALS: Ht 183 cm; Wt 133.5 kg
[~2022-08-24 12:27] MED LIST changes: +FENT1PAT9 TD
--- NOTE | 2022-08-24 12:52 | ED Respiratory ---
General Chief Complaint: Cough/Cold/Flu Symptoms Stated Complaint: COUGH | CHEST CONGESTION Nursing Triage Note: PT TO [facility] 10 FROM [facility] WITH CC OF COUGH, SOB FOR SEVERAL DAYS, PT ON O2 AT NIGHT BUT NEEDING TO WEAR IT DURING THE DAY. NEG COVID, FLU, AND STREP AT [facility]. SATS DOWN IN LOWER 80'S ON 2 LPM, RAISED UP TO 4 LPM TO REACH LOWER 90'S. COPD AND DIABETIC TYPE I Source: patient Exam Limitations: no limitations History of Present Illness Date Seen by Provider: Aug 24, 2022 Time Seen by Provider: 12:41 Initial Comments 61-year-old male presents to the emergency department today from the [facility] clinic for shortness of breath. He states since or Wednesday he has had progressively worsening cough that is productive of green sputum. No fevers or chills. He does have COPD and has worsening shortness of breath. He is on oxygen, 2 L via nasal cannula and concentrator [id number]. He has not had to increase this but states that his oxygen levels have been dropping down intermittently. This sometimes happens at rest but mostly happens just with exertion. Oxygen has dropped into the 80s per his report. He had negative COVID and flu testing as well as strep testing today. He did have a chest x-ray performed there, currently the results are unavailable to me. He denies any chest pain. His was sick with similar symptoms about 1 week ago. All other systems reviewed and negative except documented per HPI. Voice recognition software was used to help create this chart Allergies and Home Medications Allergies Coded Allergies: No Known Drug Allergies (Unverified , 12/27/19) Patient Home Medication List Home Medication List Reviewed: Yes Alprazolam (Alprazolam) 2 Mg Tablet, 2 MG PO 1200, (Reported) Entered as Reported by: RAMIN AZAR on 02/26/22 1537 Amlodipine Besylate (Amlodipine Besylate) 10 Mg Tablet, 10 MG PO HS, (Reported) Entered as Reported by: MERARI MARX on 09/29/16 1446 Aspirin (Aspirin EC) 81 Mg Tablet.dr, 81 MG PO HS, (Reported) Entered as Reported by: RAMIN AZAR on 02/26/22 1537 Atorvastatin Calcium (Atorvastatin Calcium) 40 Mg Tablet, 40 MG PO HS, (Reported) Entered as Reported by: MERARI MARX on 09/29/16 1446 Citalopram Hydrobromide (Citalopram HBr) 40 Mg Tablet, 40 MG PO DAILY, (Reported) Entered as Reported by: HERRERA BASILIO on 12/27/19 142 Doxycycline Hyclate (Doxycycline Hyclate) 100 Mg Tablet, 100 MG PO BID@ Prescribed by: MICHAEL FRAZIER on 02/28/22 114 Dulaglutide (Trulicity) 0.75 Mg/0.5 Ml Pen.injctr, 0.75 MG SC WED, (Reported) Entered as Reported by: RAMIN AZAR on 02/26/22 1537 Fentanyl (Fentanyl Patch 50 MCG) 50 Mcg/Hour Patch.td72, 50 MCG TD Q72H, (Reported) Entered as Reported by: RUPALI NAJERA on 08/19/22 1029 Gemfibrozil (Gemfibrozil) 600 Mg Tablet, 600 MG PO BID, (Reported) Entered as Reported by: RUPALI NAJERA on 08/19/22 1029 Hydrocodone/Acetaminophen (Hydrocodone-Acetamin 10-325 mg) 10 Mg-325 Mg Tablet, 1 EA PO Q6H PRN for PAIN-MODERATE (5-7), (Reported) Entered as Reported by: RAMIN AZAR on 02/26/22 153 Insulin Aspart (Novolog Flexpen) 100 Unit/Ml (3 Ml) Solution, 20 UNITS SC AC Prescribed by: MICHAEL FRAZIER on 02/28/22 114 Insulin Degludec (Tresiba Flextouch U-200) 200 Unit/Ml (3 Ml) Insuln.pen, 40 UNIT SQ HS Prescribed by: MICHAEL FRAZIER on 02/28/22 114 Meloxicam (Meloxicam) 7.5 Mg Tablet, 7.5 MG PO DAILY, (Reported) Entered as Reported by: RAMIN AZAR on 02/26/22 153 Mirtazapine (Mirtazapine) 30 Mg Tablet, 30 MG PO HS, (Reported) Entered as Reported by: HERRERA BASILIO on 12/27/19 142 Pregabalin (Pregabalin) 225 Mg Capsule, 225 MG PO BID, (Reported) Entered as Reported by: HERRERA BASILIO on 12/27/19 1427 Tamsulosin HCl (Flomax) 0.4 Mg Cap, 0.4 MG PO HS, (Reported) Entered as Reported by: RAMIN AZAR on 02/26/22 1537 Discontinued Medications Alprazolam (Alprazolam) 2 Mg Tablet, 1 MG PO BID, (Reported) Discontinued Reason: No Longer Taking Entered as Reported by: HERRERA BASILIO on 12/27/19 1427 Cefdinir (Cefdinir) 300 Mg Capsule, 300 MG PO BID Discontinued Reason: No Longer Taking Prescribed by: MICHAEL FRAZIER on 02/28/22 1143 Morphine Sulfate (Morphine Sulfate ER) 30 Mg Tablet.er, 30 MG PO TID, (Reported) Discontinued Reason: No Longer Taking Entered as Reported by: RAMIN AZAR on 02/26/22 1537 Review of Systems Review of Systems Constitutional: no symptoms reported Past Bymwvlz-Xprwos-Ctzvxg Hx Patient Social History Tobacco Use?: Yes Use of E-Cig and/or Vaping dev: No Substance use?: No Immunizations Up To Date Tetanus Booster (TDap): Unknown First/Initial COVID19 Vaccinat: july 2020 Second COVID19 Vaccination Wiley: august 2020 Third COVID19 Vaccination Date: july 2020 Seasonal Allergies Seasonal Allergies: Yes Past Medical History Surgery/Hospitalization HX: L knee replacement 11/2021; Surgeries: Yes (BACK, KNEE, SHOULDER, RT FOOT OSTEOMYELITIS REMOVAL, LPJ- KIDNEY) Amputation, Orthopedic, Renal Respiratory: Yes (O2 2L @ NIGHT AND PRN) COPD Currently Using CPAP: No Currently Using BIPAP: No Cardiac: Yes High Cholesterol, Hypertension Neurological: Yes Neuropathy Reproductive Disorders: No Sexually Transmitted Disease: No Genitourinary: Yes (KINDEY SURGERY) Kidney Stones, Renal Failure Gastrointestinal: No Musculoskeletal: Yes (OSTEOMYELITIS RT FOOT/TOES AMPUTATED; PSORIATIC ARTHRITIS;GEN PAIN ) Degenerate Disk Disease, Arthritis, Back Injury, Chronic Back Pain Endocrine: Yes Diabetes, Insulin dep HEENT: No (GLASSES) Loss of Vision: Denies Hearing Impairment: Denies Cancer: No Psychosocial: Yes Sleep Difficulties, Anxiety Integumentary: Yes Eczema, Psoriasis Blood Disorders: No Adverse Reaction/Blood Tranf: No (N/A) Family Medical History Reviewed Nursing Family Hx No Pertinent Family Hx Physical Exam Vital Signs - First Documented 08/24/22 08/24/22 12:35 12:37 Temp 36.1 Pulse 77 Resp 20 B/P (MAP) 148/71 (96) Pulse Ox 97 O2 Delivery Nasal Cannula O2 Flow Rate 2.00 Capillary Refill : Less Than 3 Seconds Height: 6'1.00" Weight: 264lbs. 0.0oz. 119.728810ic; 39.00 BMI Method:Stated General Appearance: WD/WN, no apparent distress HEENT: normal ENT inspection, pharynx normal Neck: non-tender, full range of motion, supple, normal inspection Respiratory: chest non-tender, lungs clear, normal breath sounds, no respiratory distress, no accessory muscle use Cardiovascular: regular rate, rhythm, no murmur Gastrointestinal: normal bowel sounds, non tender, soft, no organomegaly Extremities: normal range of motion, other (3+ pitting edema bilateral lower extremities) Neurologic/Psychiatric: alert, oriented x 3 Skin: normal color, warm/dry Progress/Results/Core Measures Suspected Sepsis SIRS Temperature: Pulse: 77 Respiratory Rate: 20 Laboratory Tests 08/24/22 12:50: White Blood Count 6.6 Blood Pressure 148 /71 Mean: 96 Laboratory Tests 08/24/22 12:50: Creatinine 0.85, Platelet Count 149, Total Bilirubin 0.5 Results/Orders Lab Results Laboratory Tests Test 08/24/22 12:50 Range/Units White Blood Count 6.6 4.3-11.0 10^3/uL Red Blood Count 4.20 L 4.30-5.52 10^6/uL Hemoglobin 12.0 L 13.3-17.7 g/dL Hematocrit 38 L 40-54 % Mean Corpuscular Volume 91 80-99 fL Mean Corpuscular Hemoglobin 29 25-34 pg Mean Corpuscular Hemoglobin Concent 32 32-36 g/dL Red Cell Distribution Width 14.9 H 10.0-14.5 % Platelet Count 149 130-400 10^3/uL Mean Platelet Volume 9.9 9.0-12.2 fL Immature Granulocyte % (Auto) 1 % Neutrophils (%) (Auto) 72 42-75 % Lymphocytes (%) (Auto) 16 12-44 % Monocytes (%) (Auto) 9 0-12 % Eosinophils (%) (Auto) 3 0-10 % Basophils (%) (Auto) 0 0-10 % Neutrophils # (Auto) 4.8 1.8-7.8 10^3/uL Lymphocytes # (Auto) 1.1 1.0-4.0 10^3/uL Monocytes # (Auto) 0.6 0.0-1.0 10^3/uL Eosinophils # (Auto) 0.2 0.0-0.3 10^3/uL Basophils # (Auto) 0.0 0.0-0.1 10^3/uL Immature Granulocyte # (Auto) 0.0 0.0-0.1 10^3/uL Sodium Level 141 135-145 MMOL/L Potassium Level 4.4 3.6-5.0 MMOL/L Chloride Level 102 98-107 MMOL/L Carbon Dioxide Level 28 21-32 MMOL/L Anion Gap 11 5-14 MMOL/L Blood Urea Nitrogen 17 7-18 MG/DL Creatinine 0.85 0.60-1.30 MG/DL Estimat Glomerular Filtration Rate 98 BUN/Creatinine Ratio 20 Glucose Level 124 H 70-105 MG/DL Calcium Level 9.3 8.5-10.1 MG/DL Corrected Calcium 9.3 8.5-10.1 MG/DL Total Bilirubin 0.5 0.1-1.0 MG/DL Aspartate Amino Transf (AST/SGOT) 34 5-34 U/L Alanine Aminotransferase (ALT/SGPT) 45 0-55 U/L Alkaline Phosphatase 105 40-136 U/L Troponin I < 0.028 <0.028 NG/ML Total Protein 8.4 H 6.4-8.2 GM/DL Albumin 4.0 3.2-4.5 GM/DL My Orders Orders - MARIO GUEVARA DO Cbc With Automated Diff (08/24/22 12:48) Ekg Tracing (08/24/22 12:48) Comprehensive Metabolic Panel (08/24/22 12:48) O2 (08/24/22 12:48) Monitor-Rhythm Ecg Trace Only (08/24/22 12:48) Ed Iv/Invasive Line Start (08/24/22 12:48) Troponin I Chin (08/24/22 12:48) Outside Films For Comparison (08/24/22 ) Vital Signs/I&O 08/24/22 08/24/22 08/24/22 12:35 12:37 12:59 Temp 36.1 Pulse 77 Resp 20 B/P (MAP) 148/71 (96) Pulse Ox 97 98 O2 Delivery Nasal Cannula Nasal Cannula Nasal Cannula O2 Flow Rate 2.00 2.00 Capillary Refill : Less Than 3 Seconds Blood Pressure Mean: 96 Departure Communication (Admissions) Patient is hemodynamically stable. Chest x-ray is completely clear. His oxygen is stable on room air and he is started back on his home oxygen via nasal cannula for comfort. Oxygen has never dropped below 94% during his emergency department stay. Heart rate is normal as well. Patient evaluation his lungs are completely clear. On reevaluation he has very slight wheezing bilaterally. He has nebulizers and inhalers at home. We will go ahead and start him on prednisone. I think he likely has a viral upper respiratory infection. His COVID and flu testing were negative at the clinic so no indication for medications to treat either of those. I did do a cardiac work-up to make sure it is symptoms heart anginal equivalents and this was negative as well. His EKG is nonischemic and normal troponin. His labs are otherwise unremarkable including a normal chemistry, he has no anemia. No leukocytosis. We discharged home with supportive care. Impression Primary Impression: COPD exacerbation Additional Impression: Upper respiratory infection Qualified Codes: J06.9 - Acute upper respiratory infection, unspecified Disposition: HOME, SELF-CARE Condition: Stable Departure-Patient Inst. Referrals: FERNY SILVERIO MD (PCP/Family) Primary Care Physician Patient Instructions: Viral Upper Respiratory Infection, Adult (DC) Add. Discharge Instructions: You likely have a viral upper respiratory infection. There is no indication for antibiotics at this time. Take the steroid medication daily as prescribed until its gone. Return to the emergency department for any severe concerns. All discharge instructions reviewed with patient and/or family. Voiced understanding. Scripts Prednisone (Prednisone) 50 Mg Tab 50 MG PO DAILY for 5 Days, #5 TAB Prov: MARIO GUEVARA DO 08/24/22 MARIO GUEVARA DO Aug 24, 2022 12:52
[2022-08-24 12:58] LABS: BASOPHILS % (AUTO) 0 % (0-10); EOSINOPHILS # (AUTO) 0.2 10^3/uL (0.0-0.3); EOSINOPHILS % (AUTO) 3 % (0-10); HEMATOCRIT 38 % (40-54); LYMPHOCYTES # (AUTO) 1.1 10^3/uL (1.0-4.0); LYMPHOCYTES % (AUTO) 16 % (12-44); MEAN CORPUSCULAR HEMOGLOBIN 29 pg (25-34); MEAN CORPUSCULAR HGB CONC 32 g/dL (32-36); MEAN CORPUSCULAR VOLUME 91 fL (80-99); MEAN PLATELET VOLUME 9.9 fL (9.0-12.2); MONOCYTES # (AUTO) 0.6 10^3/uL (0.0-1.0); MONOCYTES % (AUTO) 9 % (0-12); NEUTROPHILS # (AUTO) 4.8 10^3/uL (1.8-7.8); NEUTROPHILS % (AUTO) 72 % (42-75); PLATELET COUNT 149 10^3/uL (130-400); WHITE BLOOD COUNT 6.6 10^3/uL (4.3-11.0)
[2022-08-24 13:43] LABS: POTASSIUM 4.4 MMOL/L (3.6-5.0)
[2022-08-24 13:44] LABS: CALCIUM 9.3 MG/DL (8.5-10.1)
[2022-08-24 13:45] LABS: TOTAL PROTEIN 8.4 GM/DL (6.4-8.2)
[2022-08-24 13:47] LABS: BILIRUBIN,TOTAL 0.5 MG/DL (0.1-1.0)
[2022-08-24 13:49] LABS: CREATININE SERUM 0.85 MG/DL (0.60-1.30)
[2022-08-24] MEDS ORDERED: PRD50T PO (14:25)
[2022-08-24 14:27] VITALS: BP 113/55
== END 2022-08-24 14:34 | disposition home or self-care (01) ==
LOC: EDUNIT# 12:27 → ER 12:30
DX: J44.1 Chronic obstructive pulmonary disease with (acute) exacerbation (principal); J06.9 Acute upper respiratory infection, unspecified; Z99.81 Dependence on supplemental oxygen
CPT/HCPCS: 36415; 80053; 84484; 85025; 93005; 93041

== ENCOUNTER 2022-09-01 08:29 | Day surgery (SDC) | payer MEDICARE ==
[~2022-09-01] VITALS: Ht 185.4 cm; Wt 133.5 kg
[~2022-09-01 08:29] MED LIST changes: +PRD50T PO
[2022-09-01] MEDS ORDERED: LACTATED RINGERS 1,000 ML IV STA (08:37)
[2022-09-01 08:51] VITALS: BP 146/65
[2022-09-01] MEDS ORDERED: PROPOFOL INJECTION 50 ML IV ONE (09:17)
[2022-09-01] MEDS ORDERED: KETAMINE 50 MG/5 ML SYRINGE ONE (09:17)
--- NOTE | 2022-09-01 10:01 | Progress Note-Post Operative ---
Post-Operative Progess Note Surgeon (s)/Controlled Atmospheric Furnace Brazer (s) Surgeon MARVA BOX DO Controlled Atmospheric Furnace Brazer: n/a Pre-Operative Diagnosis screening colonoscopy Post-Operative Diagnosis colon polyps Procedure & Operative Findings Date of Procedure 09/01/22 Procedure Performed/Findings colonoscopy and snare polypectomy x2 Anesthesia Type per hammer runner Estimated Blood Loss Estimated blood loss (mL): none Specimens/Packing Specimens Removed colon polyps MARVA BOX DO Sep 01, 2022 10:01
--- NOTE | 2022-09-01 10:03 | Discharge Inst-Simple/Standard ---
Discharge Inst-Standard Reconcile Patient Problems Problems Reviewed?: Yes Patient Instructions/Follow Up Plan of Care/Instructions/FU: F/u with Dr. Silver in 2 weeks Activity as Tolerated: Yes Discharge Diet: No Restrictions, Regular Diet MARVA SILVER DO Sep 01, 2022 10:02
--- NOTE | 2022-09-01 10:04 | Anesthesia-General Post-Op ---
MAC Patient Condition Mental Status/LOC: Same as Preop Cardiovascular: Satisfactory Nausea/Vomiting: Absent Respiratory: Satisfactory Pain: Controlled Complications: Absent Post Op Complications Complications None Follow Up Care/Instructions Patient Instructions None needed. Anesthesiology Discharge Order Discharge Order Patient is doing well, no complaints, stable vital signs, no apparent adverse anesthesia problems. No complications reported per nursing. CONSTANZA GUERRERO CRNA Sep 01, 2022 10:04
[2022-09-01 10:05] VITALS: BP 130/65
[2022-09-01 10:10] VITALS: BP 128/66
[2022-09-01 10:15] VITALS: BP 122/60
[2022-09-01 10:20] VITALS: BP 138/68
[2022-09-01 10:55] VITALS: BP 138/68
--- NOTE | 2022-09-01 17:15 | OPERATIVE REPORT ---
DATE OF SERVICE: 09/01/2022 PREOPERATIVE DIAGNOSIS: Screening colonoscopy. POSTOPERATIVE DIAGNOSIS: Colon polyps. PROCEDURE: Colonoscopy with snare polypectomy x2. SURGEON: Marva Silver DO ANESTHESIA: Per OUTDOOR EMERGENCY CARE TECHNICIAN. ESTIMATED BLOOD LOSS: None. COMPLICATIONS: None. INDICATIONS: The patient is a 61-year-old male, needing screening colonoscopy. He understands risks and benefits of procedure and wishes to proceed. Consent was signed in chart. DESCRIPTION OF PROCEDURE: The patient was taken to endoscopy suite, placed in left lateral recumbent position. Timeout was performed. Digital rectal exam was performed. No palpable polyps, masses or ulcerations. Scope was inserted in the rectum, advanced all the way to the cecum with minimal difficulty. Prep was adequate with irrigation and suction. Scope was then slowly retracted back. No polyps, masses or ulcerations in the cecum and ascending colon. Transverse colon had a polyp, which snare polypectomy was performed. This was obtained for specimen. Scope was then continuously retracted back. No polyps, masses or ulcerations in the remainder of the transverse colon. In the descending colon, another small polyp was present, which snare polypectomy was performed. Scope was then continuously retracted back. No polyps, masses or ulcerations in the remainder of the descending and sigmoid colon. Once in the rectum, scope was retroflexed noting no other pathology. Scope was returned to its normal position, slowly withdrawn until completely removed. The patient tolerated the procedure well without complications. He was taken to recovery room in stable condition. RECOMMENDATIONS: The patient will need repeat colonoscopy in 5 years. Any issues before that, be seen at that time. He will follow up on pathology in 2 weeks. Job ID: [id number] DocumentID: [id number] Dictated Date: 09/01/2022 10:01:08 Die Engraving Supervisor Date: 09/01/2022 17:12:00 Dictated By: MARVA SILVER DO
== END 2022-09-01 11:11 | disposition home or self-care (01) ==
LOC: ENDO 08:29
PROVIDERS: ATTEND Surgery
DX: Z12.11 Encounter for screening for malignant neoplasm of colon (principal); D12.3 Benign neoplasm of transverse colon; D12.4 Benign neoplasm of descending colon; E66.9 Obesity, unspecified; E11.9 Type 2 diabetes mellitus without complications; Z79.4 Long term (current) use of insulin; Z79.85 Long-term (current) use of injectable non-insulin antidiabetic drugs; Z68.38 Body mass index [BMI] 38.0-38.9, adult; Z87.891 Personal history of nicotine dependence; Z89.411 Acquired absence of right great toe

== ENCOUNTER 2022-10-06 13:30 | Outpatient (CLI) | payer MEDICARE ==
[2022-10-06 14:00] VITALS: BP 147/61
== END 2022-10-06 14:00 | disposition home or self-care (01) ==
LOC: SDC 13:30
PROVIDERS: ATTEND Internal Medicine
DX: I73.9 Peripheral vascular disease, unspecified (principal)
CPT/HCPCS: 96523

== ENCOUNTER → 2022-11-11 | Outpatient (CLI) | payer MEDICARE, MEDICAID ==
[~2022-11-11] VITALS: Ht 182.9 cm; Wt 130.5 kg
[2022-11-11 13:15] VITALS: BP 145/59
== END ==
LOC: SDC 13:01
PROVIDERS: ATTEND Internal Medicine
DX: I73.9 Peripheral vascular disease, unspecified (principal)
CPT/HCPCS: 96523

== ENCOUNTER 2022-12-08 08:41 | Outpatient (CLI) | payer MEDICARE, MEDICAID ==
[~2022-12-08] VITALS: Ht 182.9 cm; Wt 130.5 kg
[2022-12-08 09:05] VITALS: BP 134/64
== END 2022-12-08 09:05 | disposition home or self-care (01) ==
LOC: SDC 08:41
PROVIDERS: ATTEND Internal Medicine
DX: I73.9 Peripheral vascular disease, unspecified (principal)
CPT/HCPCS: 96523

== ENCOUNTER → 2022-12-08 | Outpatient (CLI) | payer MEDICARE, MEDICAID ==
--- NOTE | 2022-12-08 10:34 | Diagnostic Imaging Report ---
Clinical indications: Patient has chronic back pain with history of previous lumbar spine surgery in 2000. EXAM: MRI of the lumbar spine performed without IV contrast. Sequences include sagittal T2, sagittal T1, sagittal STIR, and axial T2. COMPARISON: MRI of the lumbar spine without contrast dated 05/14/2017. FINDINGS: Again seen postop changes to the lower lumbar spine with L4 S1 posterior lumbar interbody fusion. There is no acute lumbar spine fracture or dislocation. There is stable chronic compression deformities involving the upper endplate of the L1 vertebra. There is interval development of a chronic compression deformity involving the L2 vertebra with roughly 30% loss of height. The visualized portions of the distal thoracic spinal cord, conus medullaris, and cauda equina nerve roots are unremarkable. The conus medullaris tip is seen at the upper L1 vertebral body level. There is no significant paraspinal soft tissue abnormality. T12-L1: Stable mild diffuse disk bulge. Is no significant central canal or neural foramen narrowing. Stable moderate bilateral facet arthropathy. L1-L2: There is moderate bilateral facet arthropathy again seen. There is no significant central canal or neural foramen narrowing. L2-L3: There is moderate bilateral facet arthropathy/hypertrophy again seen. There is slight progression of diffuse disk bulge with mild bilateral neural foramen narrowing which has minimally progressed. There is interval progression of ligament flavum buckling. There is mild central canal stenosis which has progressed. L3-L4: There is facet arthropathy/hypertrophy and hypertrophic bony fusion changes. There is stable moderate right neural foramen narrowing and mild left neural foramen narrowing. Is no significant central canal stenosis. L4-L5: There is no significant central canal stenosis. There is no significant neural foramen narrowing. L5-S1: There is no significant central canal narrowing. There is no significant bony neural foramen narrowing. IMPRESSION: 1: Stable postop changes with L4-L5 posterior lumbar interbody fusion. 2: There is interval development of a chronic compression deformity involving the L2 vertebra and stable chronic compression deformity involving the L1 vertebra. 3: There is interval slight progression of lumbar spine degenerative disease, as described above. Dictated by: Dictated on workstation # [id number]
--- NOTE | 2022-12-08 17:24 | Diagnostic Imaging Report ---
EXAM: LUMBOSACRAL SPINE 4 VIEWS OR INDICATION: Low back pain. COMPARISON: MRI lumbar spine 12/08/2022. FINDINGS: Chronic superior endplate height loss of L1 and L2 is stable. Posterior instrumentation with interbody devices at L4-S1. Hardware components appear intact. No evidence of loosening. No subluxation with flexion or extension. Visualized pelvis is intact. IMPRESSION: 1. Posterior instrumentation and interbody devices at L4-S1. No evidence of hardware failure. 2. Stable alignment. No subluxation with flexion or extension. Dictated by: Dictated on workstation # [id number]
== END ==
LOC: RAD 07:16
PROVIDERS: ATTEND Pain Medicine Interventional Pain Medicine
DX: M47.26 Other spondylosis with radiculopathy, lumbar region (principal); M43.9 Deforming dorsopathy, unspecified; M51.25 Other intervertebral disc displacement, thoracolumbar region; M47.815 Spondylosis without myelopathy or radiculopathy, thoracolumbar region; M51.16 Intervertebral disc disorders with radiculopathy, lumbar region; M48.061 Spinal stenosis, lumbar region without neurogenic claudication; Z98.1 Arthrodesis status
CPT/HCPCS: 72110; 72148

== ENCOUNTER 2022-12-12 22:12 | Inpatient (IN) | payer MEDICARE, MEDICAID ==
[~2022-12-12] VITALS: Ht 182.9 cm; Wt 136.1 kg
[2022-12-12] MEDS ORDERED: NS IV 1000 ML 1,000 ML IV SCH (22:30)
[2022-12-12] MEDS ORDERED: ACETAMINOPHEN 500 MG TAB (TYLENOL) PO PRN (22:30)
[2022-12-12] MEDS ORDERED: diphenhydrAMINE 50 MG/ML INJ (BENADRYL) IM ONE (22:30)
[2022-12-12] MEDS ORDERED: KETOROLAC 60 MG/2 ML VIAL IM ONE (22:30)
[2022-12-12] MEDS ORDERED: CEFEPIME INJECTION 1,000 MG in NS (IVPB) 50 ML IV ONE (22:30)
[2022-12-12] MEDS ORDERED: ORPHENADRINE 60 MG/2 ML (NORFLEX) AMP (ED ONLY) IM ONE (22:30)
[2022-12-12 22:39] LABS: BASOPHILS % (AUTO) 0 % (0-10); EOSINOPHILS # (AUTO) 0.1 10^3/uL (0.0-0.3); EOSINOPHILS % (AUTO) 1 % (0-10); HEMATOCRIT 46 % (40-54); HEMOGLOBIN 14.8 g/dL (13.3-17.7); LYMPHOCYTES # (AUTO) 0.5 10^3/uL (1.0-4.0); LYMPHOCYTES % (AUTO) 3 % (12-44); MEAN CORPUSCULAR HEMOGLOBIN 31 pg (25-34); MEAN CORPUSCULAR HGB CONC 32 g/dL (32-36); MEAN CORPUSCULAR VOLUME 95 fL (80-99); MEAN PLATELET VOLUME 9.7 fL (9.0-12.2); MONOCYTES # (AUTO) 1.9 10^3/uL (0.0-1.0); MONOCYTES % (AUTO) 9 % (0-12); NEUTROPHILS # (AUTO) 17.3 10^3/uL (1.8-7.8); NEUTROPHILS % (AUTO) 87 % (42-75); PLATELET COUNT 193 10^3/uL (130-400); WHITE BLOOD COUNT 19.8 10^3/uL (4.3-11.0)
[2022-12-12 22:49] LABS: ALBUMIN 4.3 GM/DL (3.2-4.5)
[2022-12-12 22:50] LABS: POTASSIUM 4.7 MMOL/L (3.6-5.0)
[2022-12-12 22:51] LABS: CALCIUM 9.2 MG/DL (8.5-10.1)
[2022-12-12 22:52] LABS: TOTAL PROTEIN 8.1 GM/DL (6.4-8.2)
[2022-12-12 22:54] LABS: BILIRUBIN,TOTAL 0.8 MG/DL (0.1-1.0); PROTHROMBIN TIME PATIENT 13.6 SEC (12.2-14.7)
[2022-12-12 22:56] LABS: CREATININE SERUM 1.14 MG/DL (0.60-1.30)
[2022-12-12 22:58] LABS: MAGNESIUM 1.7 MG/DL (1.6-2.4)
[2022-12-12 23:16] LABS: BAND NEUTROPHILS 4 %; LYMPHOCYTES % (MANUAL) 2 %; MONOCYTES % (MANUAL) 14 %; NEUTROPHILS % (MANUAL) 80 %; STOMATOCYTES SLIGHT
[2022-12-12 23:17] LABS: CLARITY,URINE CLEAR; COLOR,URINE AMBER; GLUCOSE, URINE (UA) NEGATIVE (NEGATIVE); KETONES,URINE NEGATIVE (NEGATIVE); LEUKOCYTE ESTERASE ,URINE NEGATIVE (NEGATIVE); NITRITE,URINE NEGATIVE (NEGATIVE); PH,URINE 5.5 (5-9); PROTEIN,URINE 1+ (NEGATIVE)
[2022-12-12 23:30] LABS: BACTERIA,URINE TRACE /HPF; HYALINE CASTS, URINE 0-2 /LPF; RBC,URINE RARE /HPF; WBC,URINE RARE /HPF
[2022-12-12 23:40] LABS: BILIRUBIN,URINE 1+ (NEGATIVE)
[2022-12-13] MEDS ORDERED: IOHEXOL 350 MG/ML 100 ML (OMNIPAQUE 350) VIAL IV ONE
[2022-12-13] MEDS ORDERED: HOLD METFORMIN - RECEIVED CONTRAST 20 ML VIAL IV SCH
[2022-12-13] MEDS ORDERED: CATHETER FLUSH 10 ML SYR IV PRN
[2022-12-13] MEDS ORDERED: NS 100 ML (IVPB) BAG IV ONE
--- NOTE | 2022-12-13 01:52 | ED General ---
General Chief Complaint: Fever-Adult/Adol Stated Complaint: SEPSIS;GASTROENTERITIS;IDDM Nursing Triage Note: Pt presents with c/o lower abdominal pain and fever. Pt states he was outside working on a ladder all day, he states the pain started around 16:30 this afternoon. Pt went to bed tonight and states he felt like his face and head were burning. Denied fever at home. Pt is on home O2 at 3L when needed, states vital signs at home were normal. Allergies and Home Medications Allergies Coded Allergies: No Known Drug Allergies (Unverified , 12/27/19) Patient Home Medication List Alprazolam (Alprazolam) 2 Mg Tablet, 2 MG PO 1200, (Reported) Entered as Reported by: RAMIN AZAR on 02/26/22 1537 Amlodipine Besylate (Amlodipine Besylate) 10 Mg Tablet, 10 MG PO HS, (Reported) Entered as Reported by: MERARI MARX on 09/29/16 1446 Aspirin (Aspirin EC) 81 Mg Tablet.dr, 81 MG PO HS, (Reported) Entered as Reported by: RAMIN AZAR on 02/26/22 1537 Atorvastatin Calcium (Atorvastatin Calcium) 40 Mg Tablet, 40 MG PO HS, (Reported) Entered as Reported by: MERARI MARX on 09/29/16 1446 Citalopram Hydrobromide (Citalopram HBr) 40 Mg Tablet, 40 MG PO DAILY, (Reported) Entered as Reported by: HERRERA BASILIO on 12/27/19 1427 Doxycycline Hyclate (Doxycycline Hyclate) 100 Mg Tablet, 100 MG PO BID@ Prescribed by: MICHAEL FRAZIER on 02/28/22 1143 Dulaglutide (Trulicity) 0.75 Mg/0.5 Ml Pen.injctr, 0.75 MG SC WED, (Reported) Entered as Reported by: RAMIN AZAR on 02/26/22 1537 Fentanyl (Fentanyl Patch 50 MCG) 50 Mcg/Hour Patch.td72, 50 MCG TD Q72H, (Reported) Entered as Reported by: RUPALI NAJERA on 08/19/22 1029 Gemfibrozil (Gemfibrozil) 600 Mg Tablet, 600 MG PO BID, (Reported) Entered as Reported by: RUPALI NAJERA on 08/19/22 1029 Hydrocodone/Acetaminophen (Hydrocodone-Acetamin 10-325 mg) 10 Mg-325 Mg Tablet, 1 EA PO Q6H PRN for PAIN-MODERATE (5-7), (Reported) Entered as Reported by: RAMIN AZAR on 02/26/22 1537 Insulin Aspart (Novolog Flexpen) 100 Unit/Ml (3 Ml) Solution, 20 UNITS SC AC Prescribed by: MICHAEL FRAZIER on 02/28/22 114 Insulin Degludec (Tresiba Flextouch U-200) 200 Unit/Ml (3 Ml) Insuln.pen, 40 UNI T SQ HS Prescribed by: MICHAEL FRAZIER on 02/28/22 1143 Meloxicam (Meloxicam) 7.5 Mg Tablet, 7.5 MG PO DAILY, (Reported) Entered as Reported by: RAMIN AZAR on 02/26/22 153 Mirtazapine (Mirtazapine) 30 Mg Tablet, 30 MG PO HS, (Reported) Entered as Reported by: HERRERA BASILIO on 12/27/19 142 Prednisone (Prednisone) 50 Mg Tab, 50 MG PO DAILY Prescribed by: MARIO GUEVAAR MD on 08/24/22 1425 Pregabalin (Pregabalin) 225 Mg Capsule, 225 MG PO BID, (Reported) Entered as Reported by: HERRERA BASILIO on 12/27/19 142 Tamsulosin HCl (Flomax) 0.4 Mg Cap, 0.4 MG PO HS, (Reported) Entered as Reported by: RAMIN AZAR on 02/26/22 153 Past Tundhgw-Ijmpjx-Iggthw Hx Immunizations Up To Date Tetanus Booster (TDap): Unknown First/Initial COVID19 Vaccinat: july 2020 Second COVID19 Vaccination Wiley: august 2020 Third COVID19 Vaccination Date: july 2020 Seasonal Allergies Seasonal Allergies: Yes Past Medical History Surgery/Hospitalization HX: L knee replacement 11/2021; COPD, DIABETIC WITH INSULIN PUMP Surgeries: Yes (BACK, KNEE, SHOULDER, RT FOOT OSTEOMYELITIS REMOVAL, LPJ- KIDNEY) Amputation, Orthopedic, Renal Respiratory: Yes (O2 2L @ NIGHT AND PRN) COPD Currently Using CPAP: No Currently Using BIPAP: No Cardiac: Yes High Cholesterol, Hypertension Neurological: Yes Neuropathy Reproductive Disorders: No Sexually Transmitted Disease: No Genitourinary: Yes (KINDEY SURGERY) Kidney Stones, Renal Failure Gastrointestinal: No Musculoskeletal: Yes (OSTEOMYELITIS RT FOOT/TOES AMPUTATED; PSORIATIC ARTHRITIS;GEN PAIN ) Degenerate Disk Disease, Arthritis, Back Injury, Chronic Back Pain Endocrine: Yes Diabetes, Insulin dep HEENT: No (GLASSES) Loss of Vision: Denies Hearing Impairment: Denies Cancer: No Psychosocial: Yes Sleep Difficulties, Anxiety Integumentary: Yes Eczema, Psoriasis Blood Disorders: No Adverse Reaction/Blood Tranf: No (N/A) Family Medical History No Pertinent Family Hx Physical Exam Vital Signs Vital Signs - First Documented 12/12/22 12/12/22 22:20 22:41 Temp 39.3 Pulse 117 Resp 20 B/P (MAP) 136/97 (110) Pulse Ox 95 O2 Delivery Nasal Cannula O2 Flow Rate 3.00 Capillary Refill : Less Than 3 Seconds Height, Weight, BMI Height: 6'1.00" Weight: 264lbs. 0.0oz. [id number]; 38.00 BMI Method:Stated Focused Exam Lactate Level 12/12/22 22:27: Lactic Acid Level 1.90 Lactic Acid Level Laboratory Tests Test 12/12/22 22:27 Lactic Acid Level 1.90 MMOL/L (0.50-2.00) Progress/Results/Core Measures Suspected Sepsis SIRS Temperature: Pulse: 117 Respiratory Rate: 20 Laboratory Tests 12/12/22 22:27: White Blood Count 19.8H Blood Pressure 136 /97 Mean: 110 12/12/22 22:27: Lactic Acid Level 1.90 Laboratory Tests 12/12/22 22:27: Creatinine 1.14, INR Comment 1.0, Platelet Count 193, Total Bilirubin 0.8 Results/Orders Lab Results Laboratory Tests Test 12/12/22 22:27 12/12/22 22:37 12/12/22 22:38 12/12/22 23:10 Range/Units White Blood Count 19.8 H 4.3-11.0 10^3/uL Red Blood Count 4.80 4.30-5.52 10^6/uL Hemoglobin 14.8 13.3-17.7 g/dL Hematocrit 46 40-54 % Mean Corpuscular Volume 95 80-99 fL Mean Corpuscular Hemoglobin 31 25-34 pg Mean Corpuscular Hemoglobin Concent 32 32-36 g/dL Red Cell Distribution Width 15.6 H 10.0-14.5 % Platelet Count 193 130-400 10^3/uL Mean Platelet Volume 9.7 9.0-12.2 fL Immature Granulocyte % (Auto) 1 % Neutrophils (%) (Auto) 87 H 42-75 % Lymphocytes (%) (Auto) 3 L 12-44 % Monocytes (%) (Auto) 9 0-12 % Eosinophils (%) (Auto) 1 0-10 % Basophils (%) (Auto) 0 0-10 % Neutrophils # (Auto) 17.3 H 1.8-7.8 10^3/uL Lymphocytes # (Auto) 0.5 L 1.0-4.0 10^3/uL Monocytes # (Auto) 1.9 H 0.0-1.0 10^3/uL Eosinophils # (Auto) 0.1 0.0-0.3 10^3/uL Basophils # (Auto) 0.0 0.0-0.1 10^3/uL Immature Granulocyte # (Auto) 0.1 0.0-0.1 10^3/uL Neutrophils % (Manual) 80 % Lymphocytes % (Manual) 2 % Monocytes % (Manual) 14 % Band Neutrophils 4 % Stomatocytes SLIGHT Prothrombin Time 13.6 12.2-14.7 SEC INR Comment 1.0 0.8-1.4 Activated Partial Thromboplast Time 30 24-35 SEC Sodium Level 141 135-145 MMOL/L Potassium Level 4.7 3.6-5.0 MMOL/L Chloride Level 105 98-107 MMOL/L Carbon Dioxide Level 23 21-32 MMOL/L Anion Gap 13 5-14 MMOL/L Blood Urea Nitrogen 33 H 7-18 MG/DL Creatinine 1.14 0.60-1.30 MG/DL Estimat Glomerular Filtration Rate 72 BUN/Creatinine Ratio 29 Glucose Level 139 H 70-105 MG/DL Lactic Acid Level 1.90 0.50-2.00 MMOL/L Calcium Level 9.2 8.5-10.1 MG/DL Corrected Calcium 9.0 8.5-10.1 MG/DL Magnesium Level 1.7 1.6-2.4 MG/DL Total Bilirubin 0.8 0.1-1.0 MG/DL Aspartate Amino Transf (AST/SGOT) 46 H 5-34 U/L Alanine Aminotransferase (ALT/SGPT) 70 H 0-55 U/L Alkaline Phosphatase 100 40-136 U/L Total Protein 8.1 6.4-8.2 GM/DL Albumin 4.3 3.2-4.5 GM/DL Amylase Level 76 25-125 U/L Lipase 33 8-78 U/L Beta-Hydroxybutyrate (Chem panel) 0.14 0.00-0.27 MMOL/L Glucometer 124 H 70-110 MG/DL Influenza Type A (RT-PCR) Not Detected Not Detecte Influenza Type B (RT-PCR) Not Detected Not Detecte SARS-CoV-2 RNA (RT-PCR) Not Detected Not Detecte Urine Color ANIKET H Urine Clarity CLEAR Urine pH 5.5 5-9 Urine Specific [place] >=1.030 1.016-1.022 Urine Protein 1+ H NEGATIVE Urine Glucose (UA) NEGATIVE NEGATIVE Urine Ketones NEGATIVE NEGATIVE Urine Nitrite NEGATIVE NEGATIVE Urine Bilirubin 1+ H NEGATIVE Urine Urobilinogen 0.2 < = 1.0 MG/DL Urine Leukocyte Esterase NEGATIVE NEGATIVE Urine RBC (Auto) NEGATIVE NEGATIVE Urine RBC RARE /HPF Urine WBC RARE /HPF Urine Crystals NONE /LPF Urine Bacteria TRACE /HPF Urine Casts PRESENT /LPF Urine Hyaline Casts 0-2 H /LPF Urine Mucus NEGATIVE /LPF Urine Culture Indicated NO My Orders Orders - GERALD BOWLING DO Ketorolac Injection (Toradol Injection) (12/12/22 22:30) Orphenadrine Inj (Ed Only) (Norflex Inje (12/12/22 22:30) Diphenhydramine Injection (Benadryl Inje (12/12/22 22:30) Accucheck Stat ONCE (12/12/22 22:25) Ed Iv/Invasive Line Start (12/12/22 22:25) Amylase (12/12/22 22:25) Cbc With Automated Diff (12/12/22 22:25) Comprehensive Metabolic Panel (12/12/22 22:25) Lactic Acid Analyzer (12/12/22 22:25) Lipase (12/12/22 22:25) Magnesium (12/12/22 22:25) Ua Culture If Indicated (12/12/22 22:25) Covid 19 Inhouse Test (12/12/22 22:25) Blood Culture (12/12/22 22:25) Urine Culture (12/12/22:) Protime With Inr (12/12/22 22:) Partial Thromboplastin Time (12/12/22:25) Chest 1 View, Ap/Pa Only (12/12/22:25) Acetaminophen Tablet (Tylenol Tablet) (12/12/22 22:30) Ed Iv/Invasive Line Start (12/12/22 22:25) Ed Iv/Invasive Line Start (12/12/22 22:25) Vital Signs Adult Sepsis Patie Q15M (12/12/22 22:25) O2 (12/12/22 22:25) Remove Rings In Anticipation O (12/12/22:) Cefepime Injection (Maxipime Injection) (12/12/22:) Influenza A And B By Pcr (12/12/22:25) Ed Iv/Invasive Line Start (12/12/22 22:25) Ns Iv 1000 Ml (Sodium Chloride 0.9%) (12/12/22 22:30) Manual Differential (12/12/22:27) Ct Hortensia Chest/Noang Abd-Pelv W (12/12/22 23:18) Iohexol Injection (Omnipaque 350 Mg/Ml 1 (12/13/22 00:00) Received Contrast (Hold Metformin- Contr (12/13/22 00:00) Sodium Chloride Flush (Catheter Flush Sy (12/13/22 00:00) Ns (Ivpb) (Sodium Chloride 0.9% Ivpb Bag (12/13/22 00:00) Beta Hydroxybutyrate (12/13/22 00:35) Hemoglobin A1c (12/13/22 00:35) Medications Given in ED Current Medications Medications Dose Ordered Sig/Fredis Route Start Time Stop Time Status Last Admin Dose Admin Acetaminophen 1,000 mg ONCE PRN PO 12/12/22 22:30 12/12/22 22:53 DC 12/12/22 22:52 1,000 MG Cefepime HCl 1000 mg/Sodium Chloride 50 ml @ 100 mls/hr ONCE ONCE IV 12/12/22 22:30 12/12/22 22:59 DC 12/12/22 22:53 100 MLS/HR Iohexol 100 ml ONCE ONCE IV 12/13/22 00:00 12/13/22 00:01 DC 12/12/22 23:57 95 ML Sodium Chloride 10 ml NEEDED PRN IV 12/13/22 00:00 12/12/22 23:57 10 ML Sodium Chloride 100 ml ONCE ONCE IV 12/13/22 00:00 12/13/22 00:01 DC 12/12/22 23:57 80 ML Vital Signs/I&O 12/12/22 12/12/22 22:20 22:41 Temp 39.3 Pulse 117 Resp 20 B/P (MAP) 136/97 (110) Pulse Ox 95 O2 Delivery Nasal Cannula O2 Flow Rate 3.00 Capillary Refill : Less Than 3 Seconds Blood Pressure Mean: 110 Point of Care Testing Finger Stick Blood Glucose: 124 Blood Glucose Action Taken: RN NOTIFIED Progress Note : Progress Note PT DID HAVE A MUCOUS-Y BROWN STOOL X 1 DURING ER STAY. SENT TO LAB FOR STOOL STUDIES. Departure Departure-Patient Inst. Referrals: RAMIN GRANDE DO (PCP/Family) Primary Care Physician GERALD BOWLING DO Dec 13, 2022 01:52
[2022-12-13 01:55] VITALS: BP 148/66
[2022-12-13] MEDS ORDERED: NS IV 1000 ML 1,000 ML ONE (01:56)
[2022-12-13] MEDS ORDERED: TIRZ7.5P SQ (02:12)
[2022-12-13] MEDS ORDERED: ALPR0.5T PO (02:12)
[2022-12-13] MEDS ORDERED: PRED5TAB PO (02:19)
[2022-12-13] MEDS ORDERED: INSU100V16 SQ (02:24)
[2022-12-13] MEDS ORDERED: PIPERACILLIN SODIUM/TAZOBACTAM 4.5 GM in NS (IVPB) 100 ML IV ONE (02:30)
[2022-12-13] MEDS ORDERED: ACETAMINOPHEN 500 MG TAB (TYLENOL) PO PRN (02:45)
[2022-12-13] MEDS ORDERED: IBUPROFEN 800 MG (MOTRIN) TAB PO PRN (02:45)
[2022-12-13] MEDS ORDERED: ONDANSETRON 4 MG/2 ML (SDV) Z0FRAN IV PRN (02:45)
[2022-12-13] MEDS ORDERED: fentaNYL INJ 100 MCG/2 ML AMP IV PRN (02:45)
[2022-12-13] MEDS: NS IV 1000 ML 1,000 ML IV SCH ×2 (03:27→08:21)
[2022-12-13 04:18] VITALS: BP 113/64
[2022-12-13 05:31] LABS: BASOPHILS % (AUTO) 0 % (0-10); EOSINOPHILS # (AUTO) 0.1 10^3/uL (0.0-0.3); EOSINOPHILS % (AUTO) 1 % (0-10); HEMATOCRIT 39 % (40-54); HEMOGLOBIN 12.1 g/dL (13.3-17.7); LYMPHOCYTES % (AUTO) 7 % (12-44); MEAN CORPUSCULAR HEMOGLOBIN 30 pg (25-34); MEAN CORPUSCULAR HGB CONC 31 g/dL (32-36); MEAN CORPUSCULAR VOLUME 96 fL (80-99); MEAN PLATELET VOLUME 9.9 fL (9.0-12.2); MONOCYTES # (AUTO) 1.3 10^3/uL (0.0-1.0); MONOCYTES % (AUTO) 9 % (0-12); NEUTROPHILS # (AUTO) 11.5 10^3/uL (1.8-7.8); NEUTROPHILS % (AUTO) 82 % (42-75); PLATELET COUNT 172 10^3/uL (130-400)
[2022-12-13] MEDS: inSUlin ASPART (NovoLOG) 1 UNIT/0.01 ML (CHARGE PER UNIT) SC SCH ×2 (05:44→11:39)
[2022-12-13 07:51] VITALS: BP 145/75
[2022-12-13] MEDS ORDERED: PIPERACILLIN SODIUM/TAZOBACTAM 4.5 GM in NS (IVPB) 100 ML IV SCH (08:30)
--- NOTE | 2022-12-13 08:50 | Diagnostic Imaging Report ---
INDICATION: Fever Portable chest 11:05 PM Heart and mediastinum are normal. Lungs are clear. There are no effusions or pneumothoraces. IMPRESSION: Negative chest. Dictated by: Dictated on workstation # [id number]
--- NOTE | 2022-12-13 10:02 | Diagnostic Imaging Report ---
INDICATION: ABD PAIN, DYSPNEA, FEVER CTA chest, abdomen and pelvis Thin axial sections through the chest, abdomen and pelvis are obtained following intravenous contrast bolus. Multiplanar MIP images were reconstructed and reviewed. All CT scans use one or more of the following dose optimizing techniques: automated exposure control, MA and/or KvP adjustment based on patient size and exam type or iterative reconstruction. INDICATION: Chest and abdominal pain. Shortness of breath. Fever. COMPARISON: 02/05/2020. FINDINGS: A left-sided port is noted. There are no CT angiographic findings of pulmonary embolism or right ventricular strain. There is no acute aortic syndrome. Heart size appears appropriate. There is no pericardial collection. Lungs demonstrate dependent atelectasis and otherwise are clear. There is no alveolar pneumonia. There is no effusion or pneumothorax. There is no suspicious pulmonary nodule or mass. There is no pleural effusion. There is no pneumothorax. There is no evidence of thoracic adenopathy. The liver demonstrates no evidence of a focal intrahepatic abnormality. Gallbladder unremarkable without radiodense stones or biliary dilatation. Portal veins appear patent. The pancreas appears normal. Spleen is normal in size. There is no adrenal mass. There is a nonobstructing calculus in the right kidney. There is a prominent right renal pelvis without calyceal dilatation. The ureters are normal in caliber. Stomach is mildly distended without gastric wall thickening. There is no significant small bowel dilation. There are a few loops of colon which demonstrate low density stool contents which may relate to liquid stool and diarrheal disease. There is no focal bowel thickening or adjacent pericolonic fat stranding. There are no findings of free air, free fluid or abscess. There is no adenopathy. Urinary bladder nondistended accentuating bladder wall thickness. There is no abdominal or pelvic adenopathy. There is aortic atherosclerosis. There are surgical changes involving the lumbar spine without acute or suspicious osseous abnormality. There is chronic wedging of the superior endplates of L1 and L2. There is stable slight wedging of T12. IMPRESSION: 1. No CT angiographic evidence of pulmonary embolism or of an acute aortic syndrome 2. Other than atelectasis, the lungs appear clear. 3. Liquid density stool within the colon may relate to a diarrheal illness. There is no bowel obstruction or abnormal bowel thickening. 4. Prominent right renal pelvis with nonobstructing right renal calculus. There is no intra-renal calyceal dilatation. 5. Bladder wall thickness accentuated by nondistention. 6. No free air, free fluid or abscess. There is no adenopathy. 7. Chronic posttraumatic and surgical changes within the spine. 8. I agree with the preliminary [facility] report. Dictated by: Dictated on workstation # [id number]
--- NOTE | 2022-12-13 11:12 | Short Stay Summary-Hospitalist ---
History of Present Illness HPI/Chief Complaint Mr. 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 He became quite weak and presented to the emergency room where he was noted to have multiple loose stools elevated white counts and his temperature was 102. He denied any travel history and no recent antibiotic usage and no sick contacts that he was aware of. He had not had anything like this in the past and reports that he is used to working outdoors. He denies any previous episodes of heat exhaustion/Stroke does have a history of type 2 diabetes with peripheral neuropathy that is now insulin requiring that he manages well on insulin pump reports his A1c's range between 6.2 and 6.9 with no issues with hypoglycemia. Date Seen 12/13/22 Time Seen by a Provider: 09:00 Attending Physician Alo Chen DO PCP Admitting Physician: Cristina Adan MD Attending Physician: Cristina Adan MD Referring Physician Date of Admission Dec 13, 2022 at 01:04 Home Medications & Allergies Home Medications Reviewed patient Home Medication Reconciliation performed by pharmacy medication reconciliations infectious disease technician and/or nursing. Patients Allergies have been reviewed. Allergies Allergies Coded Allergies No Known Drug Allergies (Unverified12/27/19) Past [place]-Mpsprm-Mfaoxq Hx Patient Social History Tobacco Use?: Yes Tobacco type used: Cigarettes Smoking Status: Former Smoker Use of E-Cig and/or Vaping dev: No Substance use?: Yes Substance type: Marijuana Additional substance use comme: MARIJUANA GUMMIES Substance frequency: Several times a month Alcohol Use?: No Pt feels they are or have been: No Immunizations Up To Date Date of Influenza Vaccine: Feb 19, 2022 First/Initial COVID19 Vaccinat: july 2020 Second COVID19 Vaccination Wiley: august 2020 Tetanus Booster (TDap): Unknown Date of Pneumonia Vaccine: Aug 03, 2011 Seasonal Allergies Seasonal Allergies: Yes Current Status Advance Directives: Yes Communicates: Verbally Primary Language: Romanian Preferred Spoken Language: Romanian Is interpretation needed?: No Sensory deficits: Vision impairment Implanted or Applied Medical D: Insulin pump, Orthopedic hardware, Port-a-cath Past Medical History Surgeries: Amputation, Orthopedic, Renal COPD Currently Using CPAP: No Currently Using BIPAP: No High Cholesterol, Hypertension Neuropathy Sexually Transmitted Disease: No Kidney Stones, Renal Failure Degenerate Disk Disease, Arthritis, Back Injury, Chronic Back Pain Diabetes, Insulin dep Loss of Vision: Denies Hearing Impairment: Denies Sleep Difficulties, Anxiety Eczema, Psoriasis Blood Disorders: No Adverse Reaction/Blood Tranf: No (N/A) Family Medical History No Pertinent Family Hx Review of Systems Constitutional: see HPI Physical Exam Physical Exam Vital Signs Vital Signs - First Documented 12/12/22 12/12/22 22:20 22:41 Temp 39.3 Pulse 117 Resp 20 B/P (MAP) 136/97 (110) Pulse Ox 95 O2 Delivery Nasal Cannula O2 Flow Rate 3.00 Capillary Refill : Less Than 3 Seconds Height, Weight, BMI Height: 6'1.00" Weight: 264lbs. 0.0oz. 119.469625qx; 40.68 BMI Method:Stated General Appearance: No Apparent Distress Respiratory: Chest Non Tender, Lungs Clear, Normal Breath Sounds, No Accessory Muscle Use, No Respiratory Distress Cardiovascular: Regular Rate, Rhythm, No Edema, No Gallop, No JVD, No Murmur, Normal Peripheral Pulses Gastrointestinal: Normal Bowel Sounds, No Organomegaly, No Pulsatile Mass, Non Tender, Soft Extremity: Non Tender, No Calf Tenderness, No Pedal Edema, Other (Surgically absent right great and second toe with loss of sensation to the mid tibia no sores callus formation or inflammatory change noted) Results Results/Procedures Labs Laboratory Tests 12/12/22 22:27 12/13/22 05:05 Patient resulted labs reviewed. Short Stay Diagnosis Discharge Diagnosis-Short Stay Admission Diagnosis 1. Gastroenteritis with dehydration. 2. Suspect heat exhaustion. 3. Insulin requiring type 2 diabetes with secondary peripheral neuropathy reported good control. Final Discharge Diagnosis Same as admission diagnosis Conclusion Plan Patient was admitted on IV fluids a dose of Zosyn was given in the emergency room. The patient had defervesced since the fever resolution of abdominal pain and had no diarrhea during his hospital stay. This raises the possibility that this was all heat exhaustion related which I discussed with the patient advised that he stay out of the heat during the middle of the day and if he has any jack issues or really outdoor work at all it should be first thing in the morning to avoid the heat of the day. No changes in medication keep regular [facility] follow-up. Copy Copies To 1: [facility]/CRISTINA ARENAS MD Dec 13, 2022 11:12
[2022-12-13 11:42] VITALS: BP 132/63
== END 2022-12-13 11:49 | disposition home or self-care (01) | DRG 923 ==
LOC: EDUNIT# 22:12 → ER 22:15 → 4TH 12-13 01:04
PROVIDERS: ADMIT Internal Medicine; ATTEND Internal Medicine
DX: T67.5XXA Heat exhaustion, unspecified, initial encounter (principal); K52.9 Noninfective gastroenteritis and colitis, unspecified; E86.0 Dehydration; E11.42 Type 2 diabetes mellitus with diabetic polyneuropathy; J44.9 Chronic obstructive pulmonary disease, unspecified; E78.00 Pure hypercholesterolemia, unspecified; I10 Essential (primary) hypertension; H54.7 Unspecified visual loss; Z79.4 Long term (current) use of insulin; Z79.85 Long-term (current) use of injectable non-insulin antidiabetic drugs; Z87.891 Personal history of nicotine dependence; Z89.431 Acquired absence of right foot; Z96.652 Presence of left artificial knee joint; Z79.82 Long term (current) use of aspirin; Z79.891 Long term (current) use of opiate analgesic; Z79.52 Long term (current) use of systemic steroids; X30.XXXA Exposure to excessive natural heat, initial encounter
CPT/HCPCS: 36415; 71045; 71275; 74177; 80053; 81000; 82010; 82150; 82947; 83036; 83605; 83690; 83735; 85007; 85025; 85027; 85610; 85730; 87015; 87040; 87045; 87046; 87088; 87324; 87449; 87636; 87899; 89055

== ENCOUNTER → 2023-01-07 | Outpatient (CLI) | payer MEDICARE, MEDICAID ==
[~2023-01-07] VITALS: Wt 136.1 kg
[~2023-01-07] MED LIST changes: +ALPR0.5T PO; +INSU100V16 SQ; +PRED5TAB PO; +TIRZ7.5P SQ
[2023-01-07 13:54] VITALS: BP 157/68
== END ==
LOC: SDC 13:31
PROVIDERS: ATTEND Internal Medicine
DX: I73.9 Peripheral vascular disease, unspecified (principal)
CPT/HCPCS: 96523

== ENCOUNTER → 2023-02-11 | Outpatient (CLI) | payer MEDICARE, MEDICAID ==
[~2023-02-11] VITALS: Ht 182.9 cm; Wt 131.0 kg
[2023-02-11 12:40] VITALS: BP 0/0
== END ==
LOC: SDC 12:05
PROVIDERS: ATTEND Internal Medicine
DX: I73.9 Peripheral vascular disease, unspecified (principal)
CPT/HCPCS: 96523

== ENCOUNTER → 2023-03-18 | Outpatient (CLI) | payer MEDICARE, MEDICAID ==
[~2023-03-18] VITALS: Ht 182.9 cm; Wt 135.2 kg
[~2023-03-18] MED LIST changes: -CELE-63 PO; +CELE-91 PO; -PREG225C7 PO; +PREG225C8 PO
[2023-03-18 13:15] VITALS: BP 164/72
== END ==
LOC: SDC 13:00
PROVIDERS: ATTEND Internal Medicine
DX: I73.9 Peripheral vascular disease, unspecified (principal)
CPT/HCPCS: 96523

== ENCOUNTER → 2023-03-30 | Outpatient (CLI) | payer MEDICARE, MEDICAID | LOC: WOUNDCARE 10:13 | PROVIDERS: ATTEND Family Medicine | DX: S81.811A Laceration without foreign body, right lower leg, initial encounter (principal); I89.0 Lymphedema, not elsewhere classified; E11.622 Type 2 diabetes mellitus with other skin ulcer; E66.01 Morbid (severe) obesity due to excess calories; L03.115 Cellulitis of right lower limb; Z68.41 Body mass index [BMI] 40.0-44.9, adult; E11.52 Type 2 diabetes mellitus with diabetic peripheral angiopathy with gangrene | CPT/HCPCS: 11042; A6197; A6212; G0463 ==

== ENCOUNTER → 2023-04-06 | Outpatient (CLI) | payer MEDICARE, MEDICAID | LOC: WOUNDCARE 08:53 | PROVIDERS: ATTEND Family Medicine | DX: S81.811A Laceration without foreign body, right lower leg, initial encounter (principal); I89.0 Lymphedema, not elsewhere classified; E11.622 Type 2 diabetes mellitus with other skin ulcer; E66.01 Morbid (severe) obesity due to excess calories; L03.115 Cellulitis of right lower limb; E11.52 Type 2 diabetes mellitus with diabetic peripheral angiopathy with gangrene; I96 Gangrene, not elsewhere classified; Z68.41 Body mass index [BMI] 40.0-44.9, adult | CPT/HCPCS: 11042; A6212; G0463 ==

== ENCOUNTER → 2023-04-13 | Outpatient (CLI) | payer MEDICARE, MEDICAID | LOC: WOUNDCARE 08:52 | PROVIDERS: ATTEND Family Medicine | DX: S81.811A Laceration without foreign body, right lower leg, initial encounter (principal); I96 Gangrene, not elsewhere classified; I89.0 Lymphedema, not elsewhere classified; E11.622 Type 2 diabetes mellitus with other skin ulcer; E66.01 Morbid (severe) obesity due to excess calories; Z68.41 Body mass index [BMI] 40.0-44.9, adult | CPT/HCPCS: 11042; A6212; G0463 ==

== ENCOUNTER → 2023-04-20 | Outpatient (CLI) | payer MEDICARE, MEDICAID ==
[2023-04-20 09:32] VITALS: BP 156/67
== END ==
LOC: SDC 09:21
PROVIDERS: ATTEND Internal Medicine
DX: I73.9 Peripheral vascular disease, unspecified (principal)
CPT/HCPCS: 96523

== ENCOUNTER → 2023-04-20 | Outpatient (CLI) | payer MEDICARE, MEDICAID | LOC: WOUNDCARE 08:54 | PROVIDERS: ATTEND Family Medicine | DX: S81.811A Laceration without foreign body, right lower leg, initial encounter (principal); I89.0 Lymphedema, not elsewhere classified; E11.622 Type 2 diabetes mellitus with other skin ulcer; E66.01 Morbid (severe) obesity due to excess calories; Z68.41 Body mass index [BMI] 40.0-44.9, adult; E11.52 Type 2 diabetes mellitus with diabetic peripheral angiopathy with gangrene; I96 Gangrene, not elsewhere classified | CPT/HCPCS: 11042; A6212; G0463 ==

== ENCOUNTER → 2023-04-27 | Outpatient (CLI) | payer MEDICARE, MEDICAID | LOC: WOUNDCARE 08:55 | PROVIDERS: ATTEND Family Medicine | DX: S81.811A Laceration without foreign body, right lower leg, initial encounter (principal); I89.0 Lymphedema, not elsewhere classified; E11.622 Type 2 diabetes mellitus with other skin ulcer; E66.01 Morbid (severe) obesity due to excess calories; Z68.41 Body mass index [BMI] 40.0-44.9, adult | CPT/HCPCS: 99212 ==